=== PATIENT | female | born 1965 | race African-American/Black ===

== ENCOUNTER 2018-01-18 07:19 | Day surgery (SDC) | payer OTHER ==
--- OUTSIDE RECORDS SUMMARY | 2018-01-18 07:22 | XMS REPORT | Clinical Summary ---
:1965 Author Organization [facility] Address [address] [place] [address] Phone Care Team Providers Name Role Phone Unavailable Primary Care Provider Unavailable Allergies No Known Allergies Current Medications Prescription Sig. Disp. Refills Start Date End Date Status metFORMIN (GLUCOPHAGE) 500 Take 500 mg by Active MG tablet mouth daily with breakfast. doxazosin (CARDURA) 8 MG Take 8 mg by mouth Active tablet nightly. NIFEdipine (ADALAT CC) 90 Take 90 mg by Active MG 24 hr tablet mouth daily. ramipril (ALTACE) 10 MG Take 10 mg by Active capsule mouth daily. calcitriol (ROCALTROL) Take 0.25 mcg by Active 0.25 MCG capsule mouth every Sunday, Sunday, Sunday. cloNIDine HCl (CATAPRES) Take 0.1 mg by Active 0.1 MG tablet mouth daily. isosorbide mononitrate Take 60 mg by Active (IMDUR) 60 MG 24 hr tablet mouth daily. atenolol (TENORMIN) 50 MG Take 50 mg by Active tablet mouth 2 (two) times daily. pravastatin (PRAVACHOL) 20 Take 20 mg by Active MG tablet mouth daily. sevelamer (RENVELA) 800 mg Take 800 mg by Active tablet mouth 3 (three) times daily with meals. cholecalciferol, vitamin Take 5,000 Units Active D3, 5,000 unit Tab by mouth daily. ascorbic acid, vitamin C, Take 500 mg by Active (ASCORBIC ACID WITH SKYLAR mouth daily. HIPS) 500 MG tablet melatonin/pyridoxine Take 10 mg by Active (MELATONIN, WITH B6, ORAL) mouth every evening. ferrous gluconate (FERGON) Take 324 mg by Active 324 MG tablet mouth daily with breakfast. 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, unspecified whether retirement insulin use (HCC);Anemia of renal disease 01/15/2018 Office Visit Transplant Yoan Crapenter-transplant Jamaica Blankenship MD evaluation for chronic kidney disease (Primary Dx) 01/15/2018 Orders Only Transplant Jayden Pre-transplant Hepatology Jamaica Blankenship MD evaluation for chronic kidney disease;Hypertension , unspecified type;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, unspecified whether terminal carman insulin use (HCC);Anemia of renal disease 12/19/2017 Abstract Transplant Naya Rodriguez 12/14/2017 Abstract Transplant Naya Rodriguez Hepatology after 01/17/2017 Social History Tobacco Use Types Packs/Day Years Used Date Never Smoker Alcohol Use Drinks/Week oz/Week Comments No Sex Assigned at Date Recorded Not on file Last Filed Vital Signs Vital Sign Reading Time Taken Blood Pressure - - Pulse - - Temperature - - Respiratory Rate - - Oxygen Saturation - - Inhaled Oxygen Concentration - - Weight 83.2 kg (183 lb 8 oz) 01/15/2018 1:28 PM CDT Height 154.9 cm (5' 1") 01/15/2018 1:28 PM CDT Body Mass Index 34.67 01/15/2018 1:28 PM CDT Plan of Treatment Date Type Specialty Care Team Description 03/01/2018 Orders Only Lab 03/01/2018 Appointment Radiology 03/01/2018 Appointment Cardiology Jamaica Carpenter MD [address] [place] [address] 03/01/2018 Appointment Cardiology 03/12/2018 Office Visit Transplant 03/12/2018 Evaluation Transplant 03/12/2018 Evaluation Transplant Health Maintenance Due Date Last Done Comments INFLUENZA VACCINE 12/24/2017 Results TRANSFUSION SERVICE REPORT - SCAN (01/16/2018 6:06 PM)CBC with platelet count + automated diff (01/15/2018 2:01 PM) Component Value Ref Range WBC 8.6 3.5 - 10.5 K/L RBC 3.20 (L) 3.93 - 5.22 M/L Hemoglobin 9.9 (L) 11.2 - 15.7 GM/DL Hematocrit 32.3 (L) 34.1 - 44.9 % MCV 100.9 (H) 79.4 - 94.8 fL MCH 30.9 25.6 - 32.2 pg MCHC 30.7 (L) 32.2 - 35.5 GM/DL RDW 12.6 11.7 - 14.4 % Platelets 403 150 - 450 K/CU MM MPV 9.8 9.4 - 12.3 fL nRBC 0 0 - 0 /100 WBC % Neutros 62 % % Lymphs 31 % % Monos 5 % % Eos 1 % % Baso 0 % # Neutros 5.31 1.56 - 6.13 K/L # Lymphs 2.66 1.18 - 3.74 K/L # Monos 0.45 (H) 0.24 - 0.36 K/L # Eos 0.12 0.04 - 0.36 K/L # Baso 0.03 0.01 - 0.08 K/L Immature Granulocytes-Relative 0 0 - 1 % Specimen Performing Laboratory Blood [facility] [address] [address] CBC w/PLT Count & Auto Differential (01/15/2018 2:01 PM) Specimen Performing Laboratory Blood Narrative The following orders were created for panel order CBC w/PLT Count & Auto Differential. Procedure Abnormality Status --------- ------ CBC with platelet count ...[[id number]]AbnormalFinal result Please view results for these tests on the individual orders. XR chest 2 views (01/15/2018 12:36 PM) Specimen Performing Laboratory GE RIS Narrative FINAL REPORT PA and Lateral views of the chest dated 01/15/2018 Clinical information: pre transplant evaluation Comment:Heart is normal in size. Pulmonary vasculature is unremarkable. Lungs are clear. No pulmonary infiltrate or pleural effusion is present. Impression:No active cardiopulmonary disease. Signed: Daiana Anaya MD Report Verified Date/Time:01/15/2018 12:48:30 Reading Location: [address] Radiology Reading Room Procedure Note Interface, External Ris In - 01/15/2018 12:50 PM CDT FINAL REPORT PA and Lateral views of the chest dated 01/15/2018 Clinical information: pre transplant evaluation Comment: Heart is normal in size. Pulmonary vasculature is unremarkable. Lungs are clear. No pulmonary infiltrate or pleural effusion is present. Impression: No active cardiopulmonary disease. Signed: Daiana Anaya MD Report Verified Date/Time: 01/15/2018 12:48:30 Reading Location: [address] Radiology Reading Room Urinalysis, Routine (01/15/2018 7:46 AM) Component Value Ref Range Color, UA Yellow Clarity, UA Hazy Specific [place], UA 1.012 1.001 - 1.035 pH, UA 5.5 5.0 - 8.0 Protein, UA 100 mg/dL (A) Negative Glucose, UA Negative Negative Ketones, UA Negative Negative Bilirubin, UA Negative Negative Blood, UA Negative Negative Nitrite, UA Negative Negative Leukocytes, UA Trace (A) Negative Urobilinogen, UA 0.2 0.2 - 1.0 mg/dL RBC, UA <1 /HPF WBC, UA 4 /HPF Bacteria, UA Occasional Squam Epithel, UA 11 /HPF Yeast Rare Specimen Source Specimen Performing Laboratory Urine [address] [address] Urine Culture (01/15/2018 7:46 AM) Component Value Ref Range Result 40-49,000 col/mL skin johnny Specimen Performing Laboratory Urine [address] [address] T Spot TB (01/15/2018 7:44 AM) Component Value Ref Range T-Spot TB Negative Neg Ctrl Spot Count 0 Panel A Spot 1 Panel B Spot [address] 0 Scan Result Specimen Performing Laboratory Blood [facility] [address] [facility], [address] [place] [address] PT/aPTT (01/15/2018 7:44 AM) Component Value Ref Range Protime 14.4 11.7 - 14.7 seconds INR 1.1 <=5.9 PTT 29.8 22.5 - 36.0 seconds Specimen Performing Laboratory Blood [address] [address] Narrative RECOMMENDED COUMADIN/WARFARIN INR THERAPY RANGES STANDARD DOSE: 2.0 - 3.0 Includes: PROPHYLAXIS for venous thrombosis, systemic embolization; TREATMENT for venous thrombosis and/or pulmonary embolus. HIGH RISK: Target INR is 2.5-3.5 for patients with mechanical heart valves. HIV-1 Antigen with HIV-1/2 Antibody (01/15/2018 7:44 AM) Component Value Ref Range HIV-1 Antigen with HIV 1&2 Antibody Nonreactive Nonreactive Specimen Performing Laboratory Blood [address] [address] Hepatitis C Antibody (01/15/2018 7:44 AM) Component Value Ref Range Hepatitis C Ab Nonreactive Nonreactive Specimen Performing Laboratory Blood [address] [address] Cytomegalovirus antibody, IgM (01/15/2018 7:44 AM) Component Value Ref Range CMV IGM Positive (A) Negative, Equivocal Specimen Performing Laboratory Blood [address] [address] Narrative CMV IgM Result Interpretation: </=0.8 Al Negative 0.9-1.0 Al Equivocal >/=1.1 Al Positive Hepatitis B core antibody, IgM (01/15/2018 7:44 AM) Component Value Ref Range Hep B C IgM Nonreactive Nonreactive Specimen Performing Laboratory Blood [address] [address] EBV-VCA antibody, IgM (01/15/2018 7:44 AM) Component Value Ref Range ASHELY JENNINGS VIRAL CAPSID ANTIGEN IGM Negative Negative, Equivocal Specimen Performing Laboratory Blood [address] [address] Narrative Ashely Jennings Viral Capsid Antigen IgM Result Interpretation: </=0.8 Al Negative 0.9-1.0 Al Equivocal >/=1.1 Al Positive EBV-VCA antibody, IgG (01/15/2018 7:44 AM) Component Value Ref Range ASHELY JENNINGS VIRAL CAPSID ANTIGEN IGG Positive (A) Negative, Equivocal Specimen Performing Laboratory [address] [address] Narrative Ashely Jennings Viral Capsid Antigen IgG Result Interpretation: </=0.8 Al Negative 0.9-1.0 Al Equivocal >/=1.1 Al Positive RPR (01/15/2018 7:44 AM) Component Value Ref Range RPR Nonreactive Nonreactive Specimen Performing Laboratory [address] [address] Hepatitis B surface antibody (01/15/2018 7:44 AM) Component Value Ref Range Hep B S Ab 69.3 (H) <8.0 mIU/mL Specimen Performing Laboratory Blood [address] [address] Hepatitis B surface antigen (01/15/2018 7:44 AM) Component Value Ref Range hepatitis B Surface Ag Nonreactive Nonreactive Specimen Performing Laboratory [address] [address] Cytomegalovirus antibody, IgG (01/15/2018 7:44 AM) Component Value Ref Range CYTOMEGALOVIRUS, IGG Positive (A) Negative, Equivocal Specimen Performing Laboratory [address] [address] Narrative CMV IgG Result Interpretation: </=0.8 Al Negative 0.9-1.0 Al Equivocal >/=1.1 AlPositive Direct AHG (SARAI)/Direct Veronika (01/15/2018 7:44 AM) Component Value Ref Range Direct AHG-IGG NEGATIVE Direct AHG-C3B, C3D NEGATVIE Specimen Performing Laboratory [address] [address] Varicella Zoster Antibody, IgG (01/15/2018 7:44 AM) Component Value Ref Range Varicella IgG >8.0 Specimen Performing Laboratory [address] [address] Narrative VARICELLA ZOSTER RESULT INTERPRETATIONS: <=0.8 AlNonreactive:Presumed non-immune to VZV 0.9-1.0 AlEquivocal >=1.1 AlReactive:Presumed immune to VZV Uric Acid (01/15/2018 7:44 AM) Component Value Ref Range Uric Acid 5.5 2.6 - 7.2 mg/dL Specimen Performing Laboratory [address] [address] PTH, Intact (01/15/2018 7:44 AM) Component Value Ref Range PTH 308.0 (H) 8.5 - 72.5 pg/mL Specimen Performing Laboratory [address] [address] Lactate Dehydrogenase (LDH) (01/15/2018 7:44 AM) Component Value Ref Range LDH 244 (H) 125 - 220 U/L Specimen Performing Laboratory [address] [address] Hemoglobin A1c (01/15/2018 7:44 AM) Component Value Ref Range Hemoglobin A1C 5.6 4.3 - 6.1 % Specimen Performing Laboratory [address] [address] Gamma Glutamyl Transferase (GGT) (01/15/2018 7:44 AM) Component Value Ref Range GGT 17 9 - 64 U/L Specimen Performing Laboratory [address] [address] Comprehensive metabolic panel (01/15/2018 7:44 AM) Component Value Ref Range Protein, Total 5.9 (L) 6.0 - 8.3 gm/dL Albumin 2.6 (L) 3.5 - 5.0 g/dL Alkaline Phosphatase 65 40 - 150 U/L Total Bilirubin 0.3 0.2 - 1.2 mg/dL Sodium 137 136 - 145 meq/L Potassium 3.6 3.5 - 5.1 meq/L Chloride 97 (L) 98 - 107 meq/L CO2 25 22 - 29 meq/L BUN 25 (H) 7 - 21 mg/dL Creatinine 10.09 (H) 0.57 - 1.25 mg/dL Glucose 152 (H) 70 - 105 mg/dL Calcium 8.4 8.4 - 10.2 mg/dL AST 9 5 - 34 U/L ALT 7 6 - 55 U/L EGFR 5Comment: ESTIMATED GFR IS NOT ACCURATE mL/min/1.73 sq m CREATININE CLEARANCE IN PREDICTING GLOMERULAR FILTRATION RATE. ESTIMATED GFR IS NOT APPLICABLE FOR DIALYSIS PATIENTS. Specimen [place] [address] Blood typing, automated (01/15/2018 7:28 AM) Component Value Ref Range ABO/RH AUTOMATED (CARLY) O POSITIVE Specimen Performing Laboratory Blood [address] [address] after 01/17/2017
[2018-01-18] MEDS ORDERED: NA CHLORIDE 0.9% 500 ML ONE (07:38)
[2018-01-18] MEDS ORDERED: PROPOFOL 200 MG/20 ML VIAL IV ONE (08:08)
[2018-01-18] MEDS ORDERED: LIDOCAINE 1% MPF 5 ML VIAL ONE (08:08)
[2018-01-18] MEDS ORDERED: ONDANSETRON HCL 40 MG/20 ML VIAL ONE (08:36)
--- NOTE | 2018-01-18 08:54 | ENDO RPT ---
[address], [address] COLONOSCOPY PROCEDURE REPORT EXAM DATE: 01/18/2018 PATIENT NAME: Maki Tabares MR #: [id number] BIRTHDATE: 1965 ATTENDING: Riki Decker DR STATUS: outpatient ARTIST'S MANAGER: Sandor Webster and Chrissie Mckeon RN INDICATIONS: The patient is a 52 yr old Female here for a colonoscopy due to colon cancer screening PROCEDURE PERFORMED: Screening Colonoscopy and Colonoscopy MEDICATIONS: Per Anesthesia. ESTIMATED BLOOD LOSS: None CONSENT: The patient understands the risks and benefits of the procedure and understands that these risks include, but are not limited to: sedation, allergic reaction, infection, perforation and/or bleeding. Alternative means of evaluation and treatment include, among others: physical exam, x-rays, and/or surgical intervention. The patient elects to proceed with this endoscopic procedure. DESCRIPTION OF PROCEDURE: During intra-op preparation period all mechanical medical equipment was checked for proper function. Hand hygiene and appropriate measures for infection prevention was taken. Procedure, possible complications, alternatives including, but not limited to possibility of bleeding, perforation, tear, infection, sepsis, need for surgery, need for blood transfusion, were explained to the patient. After the risks, benefits and alternatives of the procedure were thoroughly explained, Informed consent was verified, confirmed and timeout was successfully executed by the treatment team. The patient was placed in the left lateral position. A digital rectal exam was performed and revealed no abnormalities of the rectum. After appropriate level of anesthesia, the scope was passed. The EC-[id number] ([id number]) endoscope was introduced through the anus and advanced to the cecum, which was identified by both the appendix and ileocecal valve. The quality of the prep was good. The instrument was then slowly withdrawn as the colon was fully examined. Scope withdrawal time was 8 minutes. COLON FINDINGS: A normal appearing cecum, ileocecal valve, and appendiceal orifice were identified. the ascending, transverse, descending, sigmoid colon, and rectum appeared unremarkable. Retroflexed views revealed no abnormalities. The scope was then completely withdrawn from the patient and the procedure terminated. ADVERSE EVENTS: There were no complications. IMPRESSIONS: A normal appearing cecum, ileocecal valve, and appendiceal orifice were identified. the ascending, transverse, descending, sigmoid colon, and rectum appeared unremarkable RECOMMENDATIONS: 1. fiber rich diet 2. yearly hemoccult starting in 4 years RECALL: Return in 10 year(s) for Colonoscopy. Earlier if on immunosuppression Riki Decker DR eSigned: Riki Decker DR 01/18/2018 8:47 AM cc: CPT CODES: ICD9 CODES: PATIENT NAME: Maki Tabares MR#: [id number]
[2018-01-18 09:19] VITALS: TEMP 98.5
[2018-01-18 09:20] VITALS: BP 144/69; O2SAT 100
== END 2018-01-18 09:25 | disposition home health service (06) ==
LOC: OR 07:19
PROVIDERS: ATTEND Surgery
PROC: 0DJD8ZZ Inspection of Lower Intestinal Tract, Via Natural or Artificial Opening Endoscopic (ICD-10-PCS; principal; 2018-01-18 08:30)
DX: Z12.11 Encounter for screening for malignant neoplasm of colon (principal); E11.9 Type 2 diabetes mellitus without complications; E78.5 Hyperlipidemia, unspecified; I10 Essential (primary) hypertension; Z91.013 Allergy to seafood
CPT/HCPCS: 45378; 82962; J2405; J2704

== ENCOUNTER 2018-08-18 13:41 | Emergency (ER) | payer OTHER ==
[2018-08-18 14:25] LABS: Absolute Monocytes 0.4 K/uL (0.1-1.3); Absolute Neutrophil 3.2 K/uL (1.8-8.0); Basophils % 0.7 % (0-1.3); Eosinophils % 3.3 % (0-4.4); Hematocrit 37.8 % (36.0-45.0); Lymphocytes % 34.5 % (15.3-44.8); MPV 9.2 fL (7.6-11.3); Monocytes % 7.2 % (3.3-12.3); RBC Red Blood Cell Count 3.94 M/uL (3.86-4.86)
--- NOTE | 2018-08-18 14:27 | RAD REPORT ---
EXAM DESCRIPTION: CT - Ct Stroke Brain Wo Cont - 08/18/2018 2:16 pm CLINICAL HISTORY: Slurred speech, weakness CLINICAL HISTORY: March 2017 TECHNIQUE: Axial 5 millimeter thick images of the head were obtained without IV contrast. All CT scans are performed using dose optimization technique as appropriate and may include automated exposure control or mA/KV adjustment according to patient size. FINDINGS: No intracranial hemorrhage, mass, or cerebral edema. No acute infarction identifiable. No cortical edema or sulcal effacement. There are some patchy areas diminished attenuation in the cerebr al white matter. This is most likely minimal chronic ischemic change but could also mask nonhemorrhag ic acute CVA. [place] matter-white matter differentiation is preserved. No globe or orbital content abnormality. Visualized portions of the mastoid air cells, paranasal sinuses, and orbits are unremarkable. Findings telephoned to the referring physician 1425 hours IMPRESSION: No intracranial hemorrhage or mass. No acute cortical based infarction. Patient does have some patchy chronic ischemic change evident. This could mask nonhemorrhagic CVA.
[2018-08-18 14:31] LABS: Protime INR 0.89
[2018-08-18 14:48] LABS: Potassium 4.5 mmol/L (3.5-5.1)
--- NOTE | 2018-08-18 14:48 | RAD REPORT ---
EXAM DESCRIPTION: RAD - Chest Single View - 08/18/2018 2:40 pm CLINICAL HISTORY: Stroke protocol chest film COMPARISON: March 2017 TECHNIQUE: AP portable chest image was obtained 1431 hours . FINDINGS: Lung volumes are low. No focal lung parenchymal process seen. Heart and vasculature are no rmal. No measurable pleural effusion and no pneumothorax. No acute bony abnormality seen. No acute ao rtic findings suspected. IMPRESSION: No acute cardiopulmonary process. No suspicious interval change.
--- NOTE | 2018-08-18 14:54 | ER ---
Nurse's Notes [facility] Name: Maki Tabares Age: 53 yrs Sex: Female : 1965 Arrival Date: 08/18/2018 Time: 13:46 Bed 5 Private MD: Diagnosis: Aphasia Presentation: 08/18 13:50 Presenting complaint: Patient states: Yesterday around 1430 my family said that my la1 speech was slurred and I had some facial droop. Transition of care: patient was not received from another setting of care. An acute neurological deficit is present. The patient has been moved to a treatment area. Pre-hospital glucose is not applicable to this patient. Onset of symptoms was August 17, 2018 at 14:30. Risk Assessment: Do you want to hurt yourself or someone else? Patient reports no desire to harm self or others. Initial Sepsis Screen: Does the patient meet any 2 criteria? No. Patient's initial sepsis screen is negative. Does the patient have a suspected source of infection? No. Patient's initial sepsis screen is negative. Care prior to arrival: None. 13:50 Method Of Arrival: Wheelchair la1 13:50 Acuity: TAVIA 2 la1 Triage Assessment: 13:55 The onset of the patients symptoms was August 17, 2018 at 14:30. aa5 Stroke Activation: Symptom onset > 6 hours Physician: Stroke Attending; Name: ; Notified At: ; Arrived At: Physician: Chief Stroke Resident; Name: ; Notified At: ; Arrived At: Physician: Stroke Resident; Name: ; Notified At: ; Arrived At: Physician: ED Attending; Name: ; Notified At: ; Arrived At: Physician: ED Resident; Name: ; Notified At: ; Arrived At: Historical: - Allergies: 13:52 SHELLFISH; la1 - PMHx: 13:52 Diabetes - NIDDM; Hyperlipidemia; Hypertension; Dialysis; peritoneal; la1 - Immunization history:: Adult Immunizations up to date. - Social history:: Smoking status: unknown. - Ebola Screening: : No symptoms or risks identified at this time. Screenin:00 Abuse screen: Denies threats or abuse. Nutritional screening: No deficits noted. aa5 Tuberculosis screening: No symptoms or risk factors identified. Fall Risk None identified. Assessment: 13:55 T-PA (Activase) Screening: Contraindications: Patient reports onset of signs and aa5 symptoms of stroke greater than 6 hours ago: Yes. 13:55 VAN Scoring: Arm Drift: Patients demonstrates NO arm weakness. Patient is VAN Negative. aa5 13:55 General: Appears comfortable, Behavior is calm, cooperative. Pain: Denies pain. Neuro: aa5 Level of Consciousness is awake, alert, obeys commands, Oriented to person, place, time, situation, Card Table Attendant are weak bilaterally Moves all extremities. Speech is normal, Facial symmetry appears normal, Pupils are PERRLA, Reports generalized weakness, pt states "I just feel sluggish" . Cardiovascular: Heart tones S1 S2 present Rhythm is regular. Respiratory: Airway is patent Respiratory effort is even, unlabored, Respiratory pattern is regular, symmetrical, Breath sounds are clear bilaterally. GI: Abdomen is round Bowel sounds present X 4 quads. Abd is soft X 4 quads. : No signs and/or symptoms were reported regarding the genitourinary system. EENT: No signs and/or symptoms were reported regarding the EENT system. Derm: Skin is dry, Skin is normal, Skin temperature is warm. Musculoskeletal: Range of motion: intact in all extremities. 14:05 Patient has been NPO before screening. The patient is alert, and able to follow aa5 commands. The patient does not exhibit slurred or garbled speech. The patient is not exhibiting difficulty speaking. The patient does not exhibit difficulty understanding words. The patient is able to swallow own secretions with no drooling or need for suction. Patient tolerated one teaspoon of water. No drooling, immediate coughing, gurgling, or clearing of the throat was noted. The patient tolerated 90mL of water. No drooling, immediate coughing, gurgling, or clearing of the throat was noted. The patient passed the bedside swallow screening. Oral medications may be given as ordered. Contact Physician for further diet orders. Provider notified of bedside swallow screening results: Ron Garcia MD. 15:00 Neuro: Level of Consciousness is awake, alert, obeys commands, Oriented to person, aa5 place, time, situation, Card Table Attendant are weak bilaterally Moves all extremities. Speech is normal, Facial symmetry appears normal, Pupils are PERRLA. Cardiovascular: Rhythm is sinus rhythm. Respiratory: Airway is patent Respiratory effort is even, unlabored, Respiratory pattern is regular, symmetrical. Derm: Skin is dry, Skin is normal, Skin temperature is warm. 15:00 Reassessment: Patient and/or family updated on plan of care and expected duration. Pain aa5 level reassessed. Awaiting for transfer, pt notified of wait time. . 16:00 Reassessment: Patient and/or family updated on plan of care and expected duration. Pain aa5 level reassessed. Patient denies pain at this time. Sitting up in bed, using cell phone. Respirations even and unlabored, skin is normal/warm/dry. . 16:22 Reassessment: Report given to [facility]. Awaiting EMS for transfer, pt notified of aa5 wait time . Vital Signs: 13:52 BP 128 / 83; Pulse 91; Resp 16; Temp 98.6; Pulse Ox 98% on R/A; Weight 80.29 kg; Height la1 5 ft. 1 in. (154.94 cm); 15:45 BP 137 / 77; Pulse 58; Resp 18 S; Pulse Ox 98% on R/A; Pain 0/10; aa5 16:30 BP 124 / 52; Pulse 60; Resp 16 S; Temp 98.0(TE); Pulse Ox 98% on R/A; Pain 0/10; aa5 13:52 Body Mass Index 33.44 (80.29 kg, 154.94 cm) la1 NIH Stroke Scale Scores: 13:55 NIHSS Score: 0 aa5 14:54 NIHSS Score: 1 kdr 15:00 NIHSS Score: 0 aa5 ED Course: 13:46 Patient arrived in ED. ss4 13:50 Matthieu Gonzalez, RN is Primary Nurse. 13:51 Triage completed. la1 13:52 Arm band placed on left wrist. la1 13:55 Patient has correct armband on for positive identification. Placed in gown. Bed in low aa5 position. Call light in reach. Side rails up X2. surveillance system monitor on. Pulse ox on. NIBP on. 13:57 Sruthi Eden, RN is Primary Nurse. aa5 14:00 Initial lab(s) drawn, by id, sent to lab. 14:00 Inserted saline lock: 20 gauge in right antecubital area, using aseptic technique. aa5 ,using aseptic technique. IV inserted by Matthieu Gonzalez RN. 14:05 Ron Garcia MD is Attending Physician. kdr 14:14 CT completed. Patient tolerated procedure well. Patient moved to CT via stretcher. sw Patient moved back from CT. 14:17 CT Stroke Brain w/o Contrast In Process Unspecified. EDMS 14:42 Stroke CXR 1 View In Process Unspecified. EDMS 14:48 initiated a transfer with Mae from the [facility]. eb 14:[address] De Leon the neurologist division operations specialist for [facility] with Dr. Garcia for eb patient transfer consultation. 15:[address] May with Dr. Garcia for patient transfer consultation. eb 15:43 administrative approval given by Mae Alston RN from the [facility]/ Dr. May has accepted the patient in transfer to [facility] Rm 2209/ report to be called to [phone]. 15:51 No provider procedures requiring assistance completed. aa5 16:55 Patient transferred, IV remains in place. aa5 Administered Medications: 15:25 Drug: Aspirin Chewable Tablet 324 mg Route: PO; aa5 16:00 Follow up: Response: No adverse reaction aa5 15:38 Not Given (Physician Discretion): Benadryl 25 mg IVP once aa5 15:38 Not Given (Physician Discretion): SOLU-Medrol 125 mg IVP once aa5 15:38 Not Given (Physician Discretion): Pepcid 20 mg IVP once aa5 Point of Care Testing: Blood Glucose: 14:00 Blood Glucose: 119 mg/dL; aa5 Ranges: Outcome: 14:54 ER care complete, transfer ordered by . kdr 16:55 Transferred by ground EMS Transfer form completed. X-rays sent w/ patient. Note: aa5 Report given to Nathalia rocha [facility] 16:55 Condition: stable 16:55 Instructed on the need for transfer, Demonstrated understanding of instructions. 16:59 Patient left the ED. la1 NIH Stroke Scale - NIH Stroke Score Date: 08/18/2018 Time: 13:55 Total Score = 0 1a. Level of Consciousness (LOC) - 0(Alert) 1b. Level of Consciousness (LOC) (Year \\T\\ Age) - 0(Both) 1c. LOC Commands (Open \\T\\ Closes Eyes/Community Representative) - 0(Both) 2. Best Gaze (Lateral Gaze Paresis) - 0(Normal) 3. Visual Field Loss - 0(No visual loss) 4. Facial Palsy - 0(Normal) 5a. Left Arm: Motor (10-second hold) - 0(No drift) 5b. Right Arm: Motor (10-second hold) - 0(No drift) 6a. Left Leg: Motor (5-second hold - always test supine) - 0(No drift) 6b. Right Leg: Motor (5-second hold - always test supine) - 0(No drift) 7. Limb Ataxia (finger/nose \\T\\ heel/garcia - test with eyes open) - 0(Absent) 8. Sensory Loss (pinprick arms/legs/face) - 0(Normal) 9. Best Language: Aphasia (description/naming/reading) - 0(No aphasia) 10. Dysarthria (speech clarity - read or repeat words) - 0(Normal) 11. Extinction and Inattention (visual/tactile/auditory/spatial/personal) - 0(No abnormality) Initials: aa5 NIH Stroke Scale - NIH Stroke Score Date: 08/18/2018 Time: 14:54 Total Score = 1 1a. Level of Consciousness (LOC) - 0(Alert) 1b. Level of Consciousness (LOC) (Year \\T\\ Age) - 0(Both) 1c. LOC Commands (Open \\T\\ Closes Eyes/Community Representative) - 0(Both) 2. Best Gaze (Lateral Gaze Paresis) - 0(Normal) 3. Visual Field Loss - 0(No visual loss) 4. Facial Palsy - 0(Normal) 5a. Left Arm: Motor (10-second hold) - 0(No drift) 5b. Right Arm: Motor (10-second hold) - 0(No drift) 6a. Left Leg: Motor (5-second hold - always test supine) - 0(No drift) 6b. Right Leg: Motor (5-second hold - always test supine) - 0(No drift) 7. Limb Ataxia (finger/nose \\T\\ heel/garcia - test with eyes open) - 0(Absent) 8. Sensory Loss (pinprick arms/legs/face) - 0(Normal) 9. Best Language: Aphasia (description/naming/reading) - 1(Mild to moderate aphasia) 10. Dysarthria (speech clarity - read or repeat words) - 0(Normal) 11. Extinction and Inattention (visual/tactile/auditory/spatial/personal) - 0(No abnormality) Initials: [facility] NIH Stroke Scale - NIH Stroke Score Date: 08/18/2018 Time: 15:00 Total Score = 0 1a. Level of Consciousness (LOC) - 0(Alert) 1b. Level of Consciousness (LOC) (Year \\T\\ Age) - 0(Both) 1c. LOC Commands (Open \\T\\ Closes Eyes/Community Representative) - 0(Both) 2. Best Gaze (Lateral Gaze Paresis) - 0(Normal) 3. Visual Field Loss - 0(No visual loss) 4. Facial Palsy - 0(Normal) 5a. Left Arm: Motor (10-second hold) - 0(No drift) 5b. Right Arm: Motor (10-second hold) - 0(No drift) 6a. Left Leg: Motor (5-second hold - always test supine) - 0(No drift) 6b. Right Leg: Motor (5-second hold - always test supine) - 0(No drift) 7. Limb Ataxia (finger/nose \\T\\ heel/garcia - test with eyes open) - 0(Absent) 8. Sensory Loss (pinprick arms/legs/face) - 0(Normal) 9. Best Language: Aphasia (description/naming/reading) - 0(No aphasia) 10. Dysarthria (speech clarity - read or repeat words) - 0(Normal) 11. Extinction and Inattention (visual/tactile/auditory/spatial/personal) - 0(No abnormality) Initials: aa5 Signatures: Dispatcher [employer] [facility] Ron Garcia MD MD [facility] Sruthi Eden, RN RN aa5 Driss Fitzpatrick RN RN Linda Vaz Henry, RN RN Tisha Hernandez Stephanie ss4
--- NOTE | 2018-08-18 14:55 | EDPHYS ---
Physician Documentation [facility] Name: Maki Tabares Age: 53 yrs Sex: Female : 1965 Arrival Date: 08/18/2018 Time: 13:46 Bed 5 Private MD: ED Physician Ron Garcia HPI: 08/18 14:54 This 53 yrs old Black Female presents to ER via Wheelchair with complaints of General kdr Weakness, Slurred Speech. 14:54 The patient presents to the emergency department with a speech or higher order brain kdr function problem, aphasia, that is mild. Onset: The symptoms/episode began/occurred gradually, yesterday, At about 2:30 yesterday. Context: occurred at home, occurred while the patient was doing normal activity. Associated signs and symptoms: The patient has no apparent associated signs or symptoms. Severity of symptoms: At their worst the symptoms were mild in the emergency department the symptoms are unchanged. Patient's baseline: Neuro: alert and fully oriented, Motor: no deficits, Ambulation: walks without assistance, Speech: normal. Current symptoms: Slurred speech. The patient has not experienced similar symptoms in the past. The patient has not recently seen a physician. Feels like her tongue is in the way - does not take KYREE inhibiter . Historical: - Allergies: 13:52 SHELLFISH; la1 - PMHx: 13:52 Diabetes - NIDDM; Hyperlipidemia; Hypertension; Dialysis; peritoneal; la1 - Immunization history:: Adult Immunizations up to date. - Social history:: Smoking status: unknown. - Ebola Screening: : No symptoms or risks identified at this time. ROS: 14:54 Constitutional: Negative for fever, chills, and weight loss, Eyes: Negative for injury, kdr pain, redness, and discharge, ENT: Negative for injury, pain, and discharge, Neck: Negative for injury, pain, and swelling, Cardiovascular: Negative for chest pain, palpitations, and edema, Respiratory: Negative for shortness of breath, cough, wheezing, and pleuritic chest pain, Abdomen/GI: Negative for abdominal pain, nausea, vomiting, diarrhea, and constipation, Back: Negative for injury and pain, : Negative for injury, bleeding, discharge, and swelling, MS/Extremity: Negative for injury and deformity, Skin: Negative for injury, rash, and discoloration, Psych: Negative for depression, anxiety, suicide ideation, homicidal ideation, and hallucinations, Allergy/Immunology: Negative for hives, rash, and allergies, Endocrine: Negative for neck swelling, polydipsia, polyuria, polyphagia, and marked weight changes, Hematologic/Lymphatic: Negative for swollen nodes, abnormal bleeding, and unusual bruising. 14:54 Neuro: Positive for speech changes, weakness, Negative for altered mental status, dizziness, gait disturbance, headache, hearing loss, loss of consciousness, numbness, seizure activity, syncope, near syncope, tingling, tinnitus, tremor, visual changes. Exam: 14:54 Constitutional: This is a well developed, well nourished patient who is awake, alert, kdr and in no acute distress. Head/Face: Normocephalic, atraumatic. Eyes: Pupils equal round and reactive to light, extra-ocular motions intact. Lids and lashes normal. Conjunctiva and sclera are non-icteric and not injected. Cornea within normal limits. Periorbital areas with no swelling, redness, or edema. Neck: Trachea midline, no thyromegaly or masses palpated, and no cervical lymphadenopathy. Supple, full range of motion without nuchal rigidity, or vertebral point tenderness. No Meningismus. Chest/axilla: Normal chest wall appearance and motion. Nontender with no deformity. No lesions are appreciated. Cardiovascular: Regular rate and rhythm with a normal S1 and S2. No gallops, murmurs, or rubs. Normal PMI, no JVD. No pulse deficits. Respiratory: Lungs have equal breath sounds bilaterally, clear to auscultation and percussion. No rales, rhonchi or wheezes noted. No increased work of breathing, no retractions or nasal flaring. Abdomen/GI: Soft, non-tender, with normal bowel sounds. No distension or tympany. No guarding or rebound. No evidence of tenderness throughout. Back: No spinal tenderness. No costovertebral tenderness. Full range of motion. Skin: Warm, dry with normal turgor. Normal color with no rashes, no lesions, and no evidence of cellulitis. MS/ Extremity: Pulses equal, no cyanosis. Neurovascular intact. Full, normal range of motion. Neuro: Awake and alert, GCS 15, oriented to person, place, time, and situation. Cranial nerves II-XII grossly intact. Motor strength 5/5 in all extremities. Sensory grossly intact. Cerebellar exam normal. Normal gait. Psych: Awake, alert, with orientation to person, place and time. Behavior, mood, and affect are within normal limits. Vital Signs: 13:52 BP 128 / 83; Pulse 91; Resp 16; Temp 98.6; Pulse Ox 98% on R/A; Weight 80.29 kg; Height la1 5 ft. 1 in. (154.94 cm); 15:45 BP 137 / 77; Pulse 58; Resp 18 S; Pulse Ox 98% on R/A; Pain 0/10; aa5 16:30 BP 124 / 52; Pulse 60; Resp 16 S; Temp 98.0(TE); Pulse Ox 98% on R/A; Pain 0/10; aa5 13:52 Body Mass Index 33.44 (80.29 kg, 154.94 cm) la1 NIH Stroke Scale Scores: 13:55 NIHSS Score: 0 aa5 14:54 NIHSS Score: 1 kdr 15:00 NIHSS Score: 0 aa5 MDM: 14:54 Patient medically screened. kdr 15:01 Data reviewed: vital signs, nurses notes, lab test result(s), radiologic studies. kdr Counseling: I had a detailed discussion with the patient and/or guardian regarding: the historical points, exam findings, and any diagnostic results supporting the discharge/admit diagnosis, lab results, radiology results, the need to transfer to another facility. 08/18 14:01 Order name: Basic Metabolic Panel; Complete Time: 14:55 08/18 14:01 Order name: CBC with Diff; Complete Time: 14:46 08/18 14:01 Order name: Protime (+inr); Complete Time: 14:46 08/18 14:01 Order name: Ptt, Activated; Complete Time: 14:46 08/18 14:01 Order name: CT Stroke Brain w/o Contrast; Complete Time: 14:46 08/18 14:46 Order name: Glucose, Ancillary Testing; Complete Time: 14:49 EDMS 08/18 14:01 Order name: Stroke CXR 1 View; Complete Time: 14:55 08/18 14:01 Order name: EKG; Complete Time: 14:02 08/18 14:01 Order name: Accucheck; Complete Time: 14:01 08/18 14:01 Order name: Cardiac monitoring; Complete Time: 14:08/18 14:01 Order name: EKG - Nurse/Tech; Complete Time: 14:08/18 14:01 Order name: IV Saline Lock; Complete Time: 14:08/18 14:01 Order name: Labs collected and sent; Complete Time: 14:08/18 14:01 Order name: NPO; Complete Time: 14:08/18 14:01 Order name: O2 Per Protocol; Complete Time: 14:08/18 14:01 Order name: O2 Sat Monitoring; Complete Time: 14:02 08/18 14:01 Order name: Stroke Swallow Screen; Complete Time: 14:02 aa Administered Medications: 15:25 Drug: Aspirin Chewable Tablet 324 mg Route: PO; aa5 16:00 Follow up: Response: No adverse reaction aa5 15:38 Not Given (Physician Discretion): Benadryl 25 mg IVP once aa5 15:38 Not Given (Physician Discretion): SOLU-Medrol 125 mg IVP once aa5 15:38 Not Given (Physician Discretion): Pepcid 20 mg IVP once aa5 Point of Care Testing: Blood Glucose: 14:00 Blood Glucose: 119 mg/dL; aa5 Ranges: Critical Glucose Levels:Adult <50 mg/dl or >400 mg/dl <40 mg/dl or >180 mg/dl Disposition: 08/18/18 14:54 Transfer ordered to [facility]. Diagnosis is Aphasia. - Reason for transfer: Higher level of care. - Accepting physician is Bershed. - Condition is Fair. - Problem is new. - Symptoms are unchanged. NIH Stroke Scale - NIH Stroke Score Date: 08/18/2018 Time: 13:55 Total Score = 0 1a. Level of Consciousness (LOC) - 0(Alert) 1b. Level of Consciousness (LOC) (Year \T\ Age) - 0(Both) 1c. LOC Commands (Open \T\ Closes Eyes/Commercial Production Editor) - 0(Both) 2. Best Gaze (Lateral Gaze Paresis) - 0(Normal) 3. Visual Field Loss - 0(No visual loss) 4. Facial Palsy - 0(Normal) 5a. Left Arm: Motor (10-second hold) - 0(No drift) 5b. Right Arm: Motor (10-second hold) - 0(No drift) 6a. Left Leg: Motor (5-second hold - always test supine) - 0(No drift) 6b. Right Leg: Motor (5-second hold - always test supine) - 0(No drift) 7. Limb Ataxia (finger/nose \T\ heel/garcia - test with eyes open) - 0(Absent) 8. Sensory Loss (pinprick arms/legs/face) - 0(Normal) 9. Best Language: Aphasia (description/naming/reading) - 0(No aphasia) 10. Dysarthria (speech clarity - read or repeat words) - 0(Normal) 11. Extinction and Inattention (visual/tactile/auditory/spatial/personal) - 0(No abnormality) Initials: aa5 NIH Stroke Scale - NIH Stroke Score Date: 08/18/2018 Time: 14:54 Total Score = 1 1a. Level of Consciousness (LOC) - 0(Alert) 1b. Level of Consciousness (LOC) (Year \T\ Age) - 0(Both) 1c. LOC Commands (Open \T\ Closes Eyes/Commercial Production Editor) - 0(Both) 2. Best Gaze (Lateral Gaze Paresis) - 0(Normal) 3. Visual Field Loss - 0(No visual loss) 4. Facial Palsy - 0(Normal) 5a. Left Arm: Motor (10-second hold) - 0(No drift) 5b. Right Arm: Motor (10-second hold) - 0(No drift) 6a. Left Leg: Motor (5-second hold - always test supine) - 0(No drift) 6b. Right Leg: Motor (5-second hold - always test supine) - 0(No drift) 7. Limb Ataxia (finger/nose \T\ heel/garcia - test with eyes open) - 0(Absent) 8. Sensory Loss (pinprick arms/legs/face) - 0(Normal) 9. Best Language: Aphasia (description/naming/reading) - 1(Mild to moderate aphasia) 10. Dysarthria (speech clarity - read or repeat words) - 0(Normal) 11. Extinction and Inattention (visual/tactile/auditory/spatial/personal) - 0(No abnormality) Initials: kdr NIH Stroke Scale - NIH Stroke Score Date: 08/18/2018 Time: 15:00 Total Score = 0 1a. Level of Consciousness (LOC) - 0(Alert) 1b. Level of Consciousness (LOC) (Year \T\ Age) - 0(Both) 1c. LOC Commands (Open \T\ Closes Eyes/Commercial Production Editor) - 0(Both) 2. Best Gaze (Lateral Gaze Paresis) - 0(Normal) 3. Visual Field Loss - 0(No visual loss) 4. Facial Palsy - 0(Normal) 5a. Left Arm: Motor (10-second hold) - 0(No drift) 5b. Right Arm: Motor (10-second hold) - 0(No drift) 6a. Left Leg: Motor (5-second hold - always test supine) - 0(No drift) 6b. Right Leg: Motor (5-second hold - always test supine) - 0(No drift) 7. Limb Ataxia (finger/nose \T\ heel/garcia - test with eyes open) - 0(Absent) 8. Sensory Loss (pinprick arms/legs/face) - 0(Normal) 9. Best Language: Aphasia (description/naming/reading) - 0(No aphasia) 10. Dysarthria (speech clarity - read or repeat words) - 0(Normal) 11. Extinction and Inattention (visual/tactile/auditory/spatial/personal) - 0(No abnormality) Initials: aa5 Signatures: Dispatcher [employer] [facility] Ron Garcia MD MD kdr Sruthi Eden RN RN aa5 Driss Fitzpatrick RN RN la1 Corrections: (The following items were deleted from the chart) 14:53 14:48 Head Angio+[id number] ordered. [facility] 16:59 14:54 08/18/2018 14:54 Transfer ordered to [facility]. la1 Diagnosis is Aphasia. Reason for transfer: Higher level of care. Accepting physician is Bershed. Condition is Fair. Problem is new. Symptoms are unchanged. kdr
[2018-08-18] MEDS ORDERED: ASPIRIN 81 MG CHEWABLE TABLET ONE (15:42)
[2018-08-18 17:53] VITALS: TEMP 98.6; O2SAT 98
[2018-08-18 17:55] VITALS: BP 137/77
--- NOTE | 2018-08-19 07:55 | EKG ---
Test Date: 2018-08-18 Test Time: 14:00:41 Senior [employer] Automation Engineer: NOHEMI MEASUREMENT RESULTS: Intervals: Rate: 62 WY: 170 QRSD: 96 QT: 442 QTc: 448 [place]: P: 38 WY: 170 QRS: 2 T: 17 INTERPRETIVE STATEMENTS: Normal sinus rhythm Anterior infarct, age undetermined Abnormal ECG Compared to ECG 04/08/2017 10:46:20 Myocardial infarct finding now present Prolonged QT interval no longer present Electronically Signed On 08-19-18 07:53:45 CDT by Ja Hudson
== END 2018-08-18 16:59 | disposition short-term general hospital (02) ==
LOC: ER 13:41
DX: R47.01 Aphasia (principal); E11.9 Type 2 diabetes mellitus without complications; E78.5 Hyperlipidemia, unspecified; I10 Essential (primary) hypertension; Z91.013 Allergy to seafood
CPT/HCPCS: 36415; 70450; 71045; 80048; 82962; 85025; 85610; 85730; 93005; 99285

== ENCOUNTER 2019-03-24 13:07 | Emergency (ER) | payer OTHER ==
--- OUTSIDE RECORDS SUMMARY | 2019-03-24 13:09 | XMS REPORT ---
:1965 Author Organization e[employer]Works Care Team Providers Name Role Phone Jose Beckham Provider Role Unavailable Allergies, Adverse Reactions, Alerts Substance Reaction Event Type shellfish Info Not Available Drug Allergy Problems Problem Type Condition Code Onset Dates Condition Status Problem Left-sided weakness R53.1 Active Problem Dependence on renal dialysis Z99.2 Active Problem History of CVA with residual deficit I69.30 Active Problem Depression with anxiety F41.8 Active Assessment Left-sided weakness R53.1 Active Problem Mixed hyperlipidemia E78.2 Active Assessment Morbid (severe) obesity due to E66.01 Active excess calories Assessment Body mass index (BMI) 35.0-35.9, Z68.35 Active adult Problem 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 Problem Morbid (severe) obesity due to E66.01 Active excess calories Problem Body mass index (BMI) 35.0-35.9, Z68.35 Active adult Problem End stage renal disease N18.6 Active Problem Type 2 diabetes mellitus with E11.22 Active diabetic chronic kidney disease Assessment Depression with anxiety F41.8 Active Assessment Mixed hyperlipidemia E78.2 Active Assessment History of CVA with residual deficit I69.30 Active Assessment Dependence on renal dialysis Z99.2 Active Assessment 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 Assessment Type 2 diabetes mellitus with E11.22 Active diabetic chronic kidney disease Assessment HTN, goal below 130/80 I10 Active Assessment End stage renal disease N18.6 Active Problem HTN, goal below 130/80 I10 Active Medications Medication Code Code Instructions Start End Status Dosage System Date Date Vitamin C [facility] 00389636071 500 MG Orally Active as directed Vitamin B [facility] 53448936143 - Orally Active as directed Complex Procardia ND 74846099234 10 MG Orally Active 1 capsule every 8 hrs as needed Atenolol ND 37483131419 50 MG Orally Active 1 tablet Once a day PRN HR >100 Metformin HCl ND 03462481655 500 MG Orally Active 1 tablet Once a day with a meal Calcitriol ND 93090014444 0.25 MCG Orally Active 1 capsule Once a day Pravastatin [facility] 48875773401 20 MG Orally Active 1 tablet Sodium Once a day Sevelamer [facility] 17262588824 0.8 GM Orally Active 1 packet Carbonate Three times a mixed with day 30 ml of water with meals Clonidine HCl [facility] 30934349220 0.3 MG Orally Inactive 1 tablet Twice a day Ferrous [facility] 31416407017 27 MG Orally Active 1 tablet Sulfate Once a day Ramipril [facility] 35470902687 10 MG Orally Active 1 capsule Once a day Aspir-Low [facility] 08862457405 81 MG Orally Active 1 tablet Once a day Doxazosin [facility] 30543590797 8 MG Orally Active 1 tablet Mesylate Once a day Clopidogrel [facility] 37660254081 75 MG Orally Active 1 tablet Bisulfate Once a day Melatonin [facility] 34162141505 5 MG Orally Active 1 capsule Once a day at bedtime as needed with food Fluoxetine HCl [facility] 49946103473 60 MG Orally Active 1 tablet Once a day Vitamin D-3 [facility] 49413138837 5000 UNIT Active as directed Orally Results No Known Results Summary Purpose eClinicalWorks Submission
--- NOTE | 2019-03-24 14:27 | RAD REPORT ---
EXAM DESCRIPTION: US - Extremity Venous Uni Ltd - 03/24/2019 2:17 pm CLINICAL HISTORY: Left leg pain and swelling COMPARISON: None. TECHNIQUE: Real-time sonographic evaluation of the left lower extremity deep venous system was perfo rmed. FINDINGS: Normal compression is seen in the left common femoral vein. The left superficial femoral v ein and left popliteal vein shows hypoechoic thrombus filling the vessel lumen. Little or no vessel c ompression is identifiable. Posterior tibial veins at the ankle show no thrombus. No mass or abnormal fluid collection in the soft tissues. IMPRESSION: Acute left leg deep venous thrombosis involving the left femoral and popliteal veins. Posterior tibial veins at the ankle and the left common femoral vein at the groin clear of thrombus.
[2019-03-24 14:45] LABS: Absolute Lymphocytes (CBC) 1.1 K/uL (0.7-4.9); Basophils % 0.5 % (0-1.3); Hematocrit 39.5 % (36.0-45.0); Lymphocytes % 10.2 % (15.3-44.8); MPV 8.7 fL (7.6-11.3); RBC Red Blood Cell Count 4.23 M/uL (3.86-4.86)
--- NOTE | 2019-03-24 14:46 | EDPHYS ---
Physician Documentation [facility] Name: Maki Tabares Age: 53 yrs Sex: Female : 1965 Arrival Date: 03/24/2019 Time: 13:12 Bed 8 Private MD: ED Physician Jesús Olson HPI: 03/24 13:58 This 53 yrs old Black Female presents to ER via Ambulatory with complaints of Leg ps1 Swelling. 13:58 Onset over the last week. Noticed swelling in the left lower extremity associated with ps1 pain. No hx of DVT before in the past. On peritoneal dialysis. No erythematous changes. Pain is mild to moderate. No ROGE. . 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 - Social history:: Smoking status: Patient/guardian denies using tobacco. - Ebola Screening: : Patient negative for fever greater than or equal to 101.5 degrees Fahrenheit, and additional compatible Ebola Virus Disease symptoms Patient denies exposure to infectious person Patient denies travel to an Ebola-affected area in the 21 days before illness onset No symptoms or risks identified at this time. ROS: 13:58 Constitutional: Negative for fever, chills, and weight loss, Eyes: Negative for injury, ps1 pain, redness, and discharge, Cardiovascular: Negative for chest pain, palpitations, and edema, Respiratory: Negative for shortness of breath, cough, wheezing, and pleuritic chest pain, Abdomen/GI: Negative for abdominal pain, nausea, vomiting, diarrhea, and constipation, Skin: Negative for injury, rash, and discoloration, Neuro: Negative for headache, weakness, numbness, tingling, and seizure. 13:58 MS/extremity: Positive for edema and tenderness of LLE. . Exam: 13:58 Constitutional: This is a well developed, well nourished patient who is awake, alert, ps1 and in no acute distress. Head/Face: Normocephalic, atraumatic. Eyes: Pupils equal round and reactive to light, extra-ocular motions intact. Lids and lashes normal. Conjunctiva and sclera are non-icteric and not injected. Chest/axilla: Normal chest wall appearance and motion. Nontender with no deformity. No lesions are appreciated. Cardiovascular: Regular rate and rhythm. No gallops, murmurs, or rubs. Normal PMI, no JVD. No pulse deficits. Respiratory: Lungs have equal breath sounds bilaterally, clear to auscultation and percussion. No rales, rhonchi or wheezes noted. No increased work of breathing, no retractions or nasal flaring. Skin: Warm, dry with normal turgor. Normal color with no rashes, no lesions, and no evidence of cellulitis. Neuro: Awake and alert, GCS 15, oriented to person, place, time, and situation. Cranial nerves II-XII grossly intact. Sensory grossly intact. 13:58 Musculoskeletal/extremity: Extremities: grossly normal except: noted in the left calf, medial aspect of left calf and left garcia: swelling, tenderness, There is no evidence of contusion, decreased ROM, erythema. Vital Signs: 13:22 BP 112 / 72; Pulse 87; Resp 19; Temp 97.7; Pulse Ox 98% on R/A; Pain 7/10; sg 15:21 BP 139 / 70; Pulse 85; Resp 16; Pulse Ox 98% on R/A; jl7 MDM: 14:12 Patient medically screened. ps1 03/24 13:50 Order name: CBC with Diff; Complete Time: 15:04 ps1 03/24 13:50 Order name: CMP ps1 03/24 13:50 Order name: Extremity Venous Uni Ltd US; Complete Time: 14:39 ps1 Administered Medications: 15:04 Drug: Eliquis 5 mg Route: PO; jl7 15:04 Follow up: Response: Medication administered at discharge. jl7 Disposition: 03/24/19 14:44 Discharged to Home. Impression: Deep vein thrombosis, left leg. - Condition is Stable. - Discharge Instructions: Deep Vein Thrombosis. - Prescriptions for Eliquis 5 mg Oral tablet - take 1 tablet by ORAL route 2 times per day 10mg po bid x 7 days then 5mg bid thereafter.; 74 tablet. - Medication Reconciliation Form, Thank You Letter, Antibiotic Education, Prescription Opioid Use form. - Follow up: Private Physician; When: 48 Hours; Reason: Further diagnostic work-up, Recheck today's complaints, Continuance of care, Re-evaluation by your physician. Follow up: Emergency Department; When: As needed; Reason: Trouble breathing, Worsening of condition. - Problem is new. - Symptoms are unchanged. Signatures: Dispatcher [employer] EDMckay Stapleton, RN RN sg Mike Holder RN RN jl7 Jesús Olson MD MD ps1 Corrections: (The following items were deleted from the chart) 15:22 14:44 03/24/2019 14:44 Discharged to Home. Impression: Deep vein thrombosis, left leg. jl7 Condition is Stable. Forms are Medication Reconciliation Form, Thank You Letter, Antibiotic Education, Prescription Opioid Use. Follow up: Private Physician; When: 48 Hours; Reason: Further diagnostic work-up, Recheck today's complaints, Continuance of care, Re-evaluation by your physician. Follow up: Emergency Department; When: As needed; Reason: Trouble breathing, Worsening of condition. Problem is new. Symptoms are unchanged. ps1
--- NOTE | 2019-03-24 14:46 | ER ---
Nurse's Notes [facility] Name: Maki Tabares Age: 53 yrs Sex: Female : 1965 Arrival Date: 03/24/2019 Time: 13:12 Bed 8 Private MD: Diagnosis: Deep vein thrombosis, left leg Presentation: 03/24 13:22 Presenting complaint: Patient states: left leg pain and swelling that began 1 day ago, sg reports having heat feeling in the left calf and left thigh, pt denies any SOB at this time. Transition of care: patient was not received from another setting of care. Onset of symptoms was March 24, 2019. Risk Assessment: Do you want to hurt yourself or someone else? Patient reports no desire to harm self or others. Initial Sepsis Screen: Does the patient meet any 2 criteria? No. Patient's initial sepsis screen is negative. Does the patient have a suspected source of infection? No. Patient's initial sepsis screen is negative. Care prior to arrival: None. 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 - Social history:: Smoking status: Patient/guardian denies using tobacco. - Ebola Screening: : Patient negative for fever greater than or equal to 101.5 degrees Fahrenheit, and additional compatible Ebola Virus Disease symptoms Patient denies exposure to infectious person Patient denies travel to an Ebola-affected area in the 21 days before illness onset No symptoms or risks identified at this time. Screenin:23 Abuse screen: Denies threats or abuse. Denies injuries from another. Nutritional jl7 screening: No deficits noted. Tuberculosis screening: No symptoms or risk factors identified. Fall Risk IV access (20 points). Total Bowen Fall Scale indicates No Risk (0-24 pts). Assessment: 14:23 General: Appears in no apparent distress. uncomfortable, Behavior is cooperative, flat. jl7 Pain: Complains of pain in left leg Pain currently is 7 out of 10 on a pain scale. Pain began 2-3 days ago. Is continuous. Neuro: Level of Consciousness is awake, alert, obeys commands, Oriented to person, place, time, situation. Cardiovascular: Patient's skin is warm and dry. Respiratory: Airway is patent Respiratory effort is even, unlabored, Respiratory pattern is regular, symmetrical. Derm: Skin is pink, warm \T\ dry. Musculoskeletal: Swelling present in left leg. 14:51 Reassessment: Pt will be discharged after pharmacy delivers medication. jl7 Vital Signs: 13:22 BP 112 / 72; Pulse 87; Resp 19; Temp 97.7; Pulse Ox 98% on R/A; Pain 7/10; sg 15:21 BP 139 / 70; Pulse 85; Resp 16; Pulse Ox 98% on R/A; jl7 ED Course: 13:12 Patient arrived in ED. mr 13:21 Arm band placed on. sg 13:35 Jesús Olson MD is Attending Physician. ps1 13:39 Triage completed. sg 13:46 Mike Holder RN is Primary Nurse. jl7 14:13 Extremity Venous Uni Ltd US In Process Unspecified. EDMS 14:23 Patient has correct armband on for positive identification. Placed in gown. Bed in low jl7 position. Call light in reach. Side rails up X 1. 14:23 Initial lab(s) drawn, by me, sent to lab. Inserted saline lock: 22 gauge in right jl7 antecubital area, using aseptic technique. Blood collected. 15:21 No provider procedures requiring assistance completed. IV discontinued, intact, jl7 bleeding controlled, No redness/swelling at site. Pressure dressing applied. Administered Medications: 15:04 Drug: Eliquis 5 mg Route: PO; jl7 15:04 Follow up: Response: Medication administered at discharge. jl7 Outcome: 14:44 Discharge ordered by . ps1 15:21 Discharged to home ambulatory. jl7 15:21 Condition: stable 15:21 Discharge instructions given to patient, family, Instructed on discharge instructions, follow up and referral plans. medication usage, Demonstrated understanding of instructions, follow-up care, medications, Prescriptions given X 1. 15:22 Patient left the ED. jl7 Signatures: Dispatcher [employer] EDMS Mckay Drake RN RN Marty Maria Teresa mr Mike Holder, GABRIELA RN jl7 Olson, Jesús, MD MD ps1
[2019-03-24] MEDS ORDERED: APIXABAN 5 MG TABLET PO ONE (15:00)
[2019-03-24 15:14] LABS: Albumin 2.7 g/dL (3.4-5.0); Bilirubin Total 0.4 mg/dL (0.2-1.0); Protein, Total 6.8 g/dL (6.4-8.2)
[2019-03-24 15:18] LABS: Potassium 2.9 mmol/L (3.5-5.1)
[2019-03-24 15:32] VITALS: TEMP 97.7; O2SAT 98
[2019-03-24 15:33] VITALS: BP 139/70
== END 2019-03-24 15:22 | disposition home or self-care (01) ==
LOC: ER 13:07
DX: I82.402 Acute embolism and thrombosis of unspecified deep veins of left lower extremity (principal); I10 Essential (primary) hypertension; Z99.2 Dependence on renal dialysis; Z91.013 Allergy to seafood
CPT/HCPCS: 36415; 80053; 85025; 93971; 99284

== ENCOUNTER 2019-11-10 11:39 | Emergency (ER) | payer OTHER ==
[2019-11-10] MEDS ORDERED: HYDROCODONE/APAP 5/325 MG TAB ONE (12:30)
--- NOTE | 2019-11-10 13:38 | RAD REPORT ---
EXAM DESCRIPTION: RAD - Shoulder Right 2 View - 11/10/2019 1:28 pm CLINICAL HISTORY: fall, right shoulder pain COMPARISON: No comparisons FINDINGS: Comminuted proximal right humerus fracture is seen with mild displacement of fracture frag ments. The bones are diffusely osteopenic.
--- NOTE | 2019-11-10 15:21 | EDPHYS ---
Physician Documentation [facility] Name: Maki Tabares Age: 54 yrs Sex: Female : 1965 Arrival Date: 11/10/2019 Time: 11:41 Bed 20 Private MD: Jose Beckham ED Physician Meño Serna HPI: 11/09 11:50 This 54 yrs old Black Female presents to ER via Wheelchair with complaints of Shoulder jmm Injury - dislocation. 11:50 The patient or guardian complains of an injury, pain. Onset: The symptoms/episode jmm began/occurred acutely, just prior to arrival. Modifying factors: the symptoms are alleviated by nothing. The symptoms are aggravated by movement. Associated signs and symptoms: Pertinent negatives: chest pain, shortness of breath. This is a 54 year old female with a history of DM, HLP, HTN that presents to the ED with complaints of right shoulder pain after tripping on a box. Patient states she fell on her right side. Denies other injury. Historical: - Allergies: 11:48 SHELLFISH; ca1 - PMHx: 11:48 Diabetes - NIDDM; Dialysis; peritoneal; Hyperlipidemia; Hypertension; ca1 - Immunization history:: Adult Immunizations up to date. - Social history:: Smoking status: Patient denies any tobacco usage or history of. ROS: 11:50 Constitutional: Negative for fever, chills, and weight loss, Cardiovascular: Negative jmm for chest pain, palpitations, and edema, Respiratory: Negative for shortness of breath, cough, wheezing, and pleuritic chest pain. 11:50 MS/extremity: Positive for pain. 11:50 All other systems are negative. Exam: 11:50 Constitutional: This is a well developed, well nourished patient who is awake, alert, jmm and in no acute distress. Head/Face: atraumatic. Eyes: EOMI, no conjunctival erythema appreciated ENT: Moist Mucus Membranes Neck: Trachea midline, Supple Chest/axilla: Normal chest wall appearance and motion. Cardiovascular: Regular rate and rhythm. No edema appreciated Respiratory: Normal respirations, no respiratory distress appreciated Abdomen/GI: Non distended, soft Back: Normal ROM Skin: General appearance color normal 11:50 Musculoskeletal/extremity: right proximal humerus ttp, full vmware architect strength, full radial pulse, compartments are soft, NVI. 11:50 Skin: Appearance: Color: normal in color. 11:50 Neuro: Orientation: is normal, Mentation: is normal, Memory: is normal. 11:50 Psych: Behavior/mood is pleasant, cooperative. Vital Signs: 11:46 BP 124 / 61; Pulse 65; Resp 15 S; Temp 98.7(O); Pulse Ox 100% on R/A; Weight 82.55 kg ca1 (R); Height 5 ft. 1 in. (154.94 cm) (R); 16:00 Pulse 62; Resp 17; Pulse Ox 100% ; jl7 11:46 Body Mass Index 34.39 (82.55 kg, 154.94 cm) ca1 Procedures: 15:17 Splinting: Splint applied to right arm using Orthoglass splint, applied by tech. nurse. [facility] Examined by me, post splint application: neurovascular intact, 2+ distal pulses palpable, brisk capillary refill noted, Patient tolerated. MDM: 11:53 Patient medically screened. [facility] 15:17 Data reviewed: vital signs, nurses notes. Counseling: I had a detailed discussion with margie the patient and/or guardian regarding: the historical points, exam findings, and any diagnostic results supporting the discharge/admit diagnosis, radiology results, the need for outpatient follow up, to return to the emergency department if symptoms worsen or persist or if there are any questions or concerns that arise at home. 11/09 11:47 Order name: Shoulder Right (2 View) XRAY; Complete Time: 14:06 [facility] 11/09 13:28 Order name: Splint: right coaptation splint; Complete Time: 16:14 [facility] Administered Medications: 12:21 Drug: [place] 5 mg-325 mg 1 tabs {Note: rass 0.} Route: PO; ca1 12:50 Follow up: Response: No adverse reaction; Pain is decreased [facility] er 16:14 Drug: Zofran (Ondansetron) 4 mg Route: PO; em 16:15 Drug: morphine 4 mg Route: IM; Site: left deltoid; em Disposition: 17:32 Co-signature as Attending Physician, Meño Serna MD. rn Disposition: 11/10/19 15:21 Discharged to Home. Impression: Humerus Fracture. - Condition is Stable. - Discharge Instructions: Humerus Fracture Treated With Immobilization. - Prescriptions for Tylenol- Codeine #3 300-30 mg Oral Tablet - take 1 tablet by ORAL route every 6 hours As needed; 20 tablet. - Medication Reconciliation Form, Thank You Letter, Antibiotic Education, Prescription Opioid Use form. - Follow up: Eric Rodriguez MD; When: 2 - 3 days; Reason: Recheck today's complaints, Continuance of care, Re-evaluation by your physician. Signatures: Dispatcher [employer] EDMS Parmjit Castillo PA PA jmm Munoz, Edgar, RN RN Meño Obregon MD MD rn Mike Holder RN RN jl7 Elida Burger RN RN ca1 Corrections: (The following items were deleted from the chart) 16:18 15:21 11/10/2019 15:21 Discharged to Home. Impression: Humerus Fracture. Condition is jl7 Stable. Forms are Medication Reconciliation Form, Thank You Letter, Antibiotic Education, Prescription Opioid Use. Follow up: Dr. Eric Rodriguez; When: 2 - 3 days; Reason: Recheck today's complaints, Continuance of care, Re-evaluation by your physician. margie
--- NOTE | 2019-11-10 15:21 | ER ---
Nurse's Notes [facility] Name: Maki Tabares Age: 54 yrs Sex: Female : 1965 Arrival Date: 11/10/2019 Time: 11:41 Bed 20 Private MD: Jose Beckham Diagnosis: Humerus Fracture Presentation: 11/09 11:46 Chief complaint: Patient states: Tripped and fell, landed on R shoulder. Pain and ca1 limited ROM R shoulder. Coronavirus screen: Client denies travel out of the [place] in the last 14 days. At this time, the client does not indicate any symptoms associated with coronavirus-19. Ebola Screen: Patient negative for fever greater than or equal to 101.5 degrees Fahrenheit, and additional compatible Ebola Virus Disease symptoms Patient denies exposure to infectious person. Patient denies travel to an Ebola-affected area in the 21 days before illness onset. No symptoms or risks identified at this time. Initial Sepsis Screen: Does the patient meet any 2 criteria? No. Patient's initial sepsis screen is negative. Does the patient have a suspected source of infection? No. Patient's initial sepsis screen is negative. Risk Assessment: Do you want to hurt yourself or someone else? Patient reports no desire to harm self or others. Onset of symptoms was November 10, 2019. 11:46 Method Of Arrival: Wheelchair ca1 11:46 Acuity: TAVIA 4 ca1 Triage Assessment: 11:48 General: Appears in no apparent distress. comfortable, Behavior is calm, cooperative, ca1 appropriate for age. Pain: Complains of pain in anterior aspect of right shoulder and right bicep. Historical: - Allergies: 11:48 SHELLFISH; ca1 - PMHx: 11:48 Diabetes - NIDDM; Dialysis; peritoneal; Hyperlipidemia; Hypertension; ca1 - Immunization history:: Adult Immunizations up to date. - Social history:: Smoking status: Patient denies any tobacco usage or history of. Screenin:09 Abuse screen: Denies threats or abuse. Denies injuries from another. Nutritional jl7 screening: No deficits noted. Tuberculosis screening: No symptoms or risk factors identified. Fall Risk Fall in past 12 months (25 points). Assessment: 14:30 Reassessment: Patient appears in no apparent distress at this time. No changes from jl7 previously documented assessment. Patient and/or family updated on plan of care and expected duration. Pain level reassessed. Patient is alert, oriented x 3, equal unlabored respirations, skin warm/dry/pink. 15:00 Reassessment: Awaiting extra hands to place splint on pt. jl7 16:09 Reassessment: Patient appears in no apparent distress at this time. No changes from jl7 previously documented assessment. Vital Signs: 11:46 BP 124 / 61; Pulse 65; Resp 15 S; Temp 98.7(O); Pulse Ox 100% on R/A; Weight 82.55 kg ca1 (R); Height 5 ft. 1 in. (154.94 cm) (R); 16:00 Pulse 62; Resp 17; Pulse Ox 100% ; jl7 11:46 Body Mass Index 34.39 (82.55 kg, 154.94 cm) ca1 ED Course: 11:41 Patient arrived in ED. as 11:42 Jose Beckham DO is Private Physician. as 11:47 Parmjit Castillo PA is PHCP. [facility] 11:47 Meño Serna MD is Attending Physician. jmm 11:48 Triage completed. ca1 11:48 Arm band placed on right wrist. ca1 13:28 Shoulder Right (2 View) XRAY In Process Unspecified. EDMS 14:18 Mike Holder RN is Primary Nurse. jl7 15:20 Eric Rodriguez MD is Referral Physician. jmm 16:09 Patient has correct armband on for positive identification. Bed in low position. Call jl7 light in reach. 16:09 No provider procedures requiring assistance completed. Patient did not have IV access jl during this emergency room visit. Orthoglass splint: Coaptation splint applied on right arm. Administered Medications: 12:21 Drug: [place] 5 mg-325 mg 1 tabs {Note: rass 0.} Route: PO; ca1 12:50 Follow up: Response: No adverse reaction; Pain is decreased jl7 16:14 Drug: Zofran (Ondansetron) 4 mg Route: PO; em 16:15 Drug: morphine 4 mg Route: IM; Site: left deltoid; em Outcome: 15:21 Discharge ordered by . jmm 16:17 Discharged to home via wheelchair, with family. jl7 16:17 Condition: stable 16:17 Discharge instructions given to patient, family, Instructed on discharge instructions, follow up and referral plans. medication usage, Demonstrated understanding of instructions, follow-up care, medications, splint care, Prescriptions given X 1. 16:18 Patient left the ED. jl7 Signatures: Dispatcher [employer] Parmjit Leger PA PA jmm Munoz, Edgar, RN RN Jonna Galvan Jahala, RN RN jl7 Elida Burger RN RN ca1
[2019-11-10] MEDS ORDERED: MORPHINE 4 MG/ML SYR ONE (16:22)
[2019-11-10] MEDS ORDERED: ONDANSETRON 4 MG (ODT) TAB ONE (16:23)
[2019-11-10 16:39] VITALS: BP 124/61; TEMP 98.7; O2SAT 100
== END 2019-11-10 16:18 | disposition home or self-care (01) ==
LOC: ER 11:39
PROC: 2W38X1Z Immobilization of Right Upper Extremity using Splint (ICD-10-PCS; principal; 2019-11-10)
DX: S42.201A Unspecified fracture of upper end of right humerus, initial encounter for closed fracture (principal); W01.0XXA Fall on same level from slipping, tripping and stumbling without subsequent striking against object, initial encounter; Y93.9 Activity, unspecified; Y92.9 Unspecified place or not applicable; I10 Essential (primary) hypertension; Z99.2 Dependence on renal dialysis; Z91.013 Allergy to seafood
CPT/HCPCS: 96372; 99284

== ENCOUNTER 2020-08-02 20:13 | Inpatient (IN) | payer OTHER ==
--- OUTSIDE RECORDS SUMMARY | 2020-08-02 20:18 | XMS REPORT | Continuity of Care Document ---
:1965 Author Organization [facility] t Address [address] [place] [address] [address]. [address] [place] [address] Care Team Providers Name Role Phone Irais Beckham [facility] Physician [phone] Denice MCKEON Attending Clinician Doctor Unassigned, Name Attending Clinician Unavailable Yoana MCKEON, Fazal Attending Clinician Teodoro Osullivan MD Attending Clinician Ronn OCHOA, Y Attending Clinician Unavailable Gama MCKEON Attending Clinician Jose Alejandro MCKEON, Enedelia Negrete Attending Clinician Carrie Lim Attending Clinician Unavailable Bebe OCHOA Attending Clinician Unavailable Silke OCHOA Attending Clinician Unavailable ANGELIA Attending Clinician Unavailable NIMO NOGUEIRA Attending Clinician Unavailable Krzysztof CRUM Attending Clinician Unavailable ALICIA Admitting Clinician Unavailable NIMO NOGUEIRA Admitting Clinician Unavailable Payers Payer Name Policy Type Policy Effective Date Expiration Date Sour ce Number MEDICAIDMEDICAIDx [id number] 2019 [place] [id number] 2019- 00:00:00 Methodi PresentMedicaid UHC MEDICAREUHC [id number] 2020 [place] MEDICARE 00:00:00 Islam [id number] 2019-PresentH [place] UNITED RESOURCES [id number] [address] [facility] [facility] y[facility]min - NETWK - MEDICARE 00:00:00 Medical Center MGD CAREOPTUM UNITED ONLY [facility] [id number]-PresentTrans plants MC Problems Condition Condition Condition Status Onset Resolution Last Treating Co mments Source Name Details Category Date Date Treatment Clinician Date Obesity Obesity Disease Active Last [facility]11 [facility] - 00:00: t & Plan: Medical 00 Current Center BMI is 34.9 which is acceptabl e for transplan t. We encourage d her to continue to increase physical activity as tolerated to aid with weight loss. Basal Basal Disease Active Last [facility] ganglia ganglia 8-11 Assessmargaret Toro - degenerati degenerati 00:00: t & Plan: Medical on on She Center requires the use of a cane due to difficult ies with balance. She is able to speak clearly in clinic today. She lives alone and remains functiona lly independe nt. Neurology notes suggest treatment of ESRD could keep her neurologi kurt changes from becoming more advanced, which we discussed in relation to transplan t during our visit today. DM DM Disease Active Last [facility] (diabetes (diabetes 8-11 Assessmen L ukdanette - mellitus) mellitus) 00:00: t & Plan: M edical 00 She will Center require strict blood glucose control . Acute Acute Disease Active [facility] encephalop encephalop 8-05 Brenda kes - athy athy 00:00: Medical 00 Center TIA TIA Disease Active [facility] (transient (transient 5-27 Brenda kes - ischemic ischemic 00:00: Medica l attack) attack) 00 Center Slurred Slurred Disease Active [facility] speech speech 5-26 [facility] - 00:00: Medical 00 Center Pre-transp Pre-transp Disease Active 2017-[address] lant lant 0-23 Assessmargaret Toro - evaluation evaluation 00:00: t & Plan: Medical for for She is an Center chronic chronic acceptabl kidney kidney e disease disease candidate for kidney transplan t pending further testing and formal review at [facility]. ESRD (end ESRD (end Disease Active 2017-[address] stage stage 0-23 Assessmen Lukes - renal renal 00:00: t & Plan: Medical disease) disease) 00 ESRD due Cent er on on to DM. dialysis dialysis She has been on dialysis since 2017. She does have a potential donor at this time. 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 11-20 He alth disorder, disorder, 00:00: recurrent recurrent 00 episode, episode, unspecifie unspecifie d d Localized Localized Disease Active 2009-03 [facility] ris osteoarthr osteoarthr 05-01 He alth osis not osis not 00:00: specified specified 00 whether whether primary or primary or secondary, secondary, pelvic pelvic region and region and thigh thigh Localized Localized Disease Active Lionel ris osteoarthr osteoarthr 11-01 He alth osis not osis not 00:00: specified specified 00 whether whether primary or primary or secondary, secondary, lower leg lower leg 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 09-14 Health 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 Routine Routine Disease Active Timmy gynecologi gynecologi 08-30 He alth kurt kurt 00:00: examinatio examinatio 00 n n Pseudotumo Pseudotumo Disease Active H arris r cerebri r cerebri 06-28 Heal th 00:00: 00 Hypertensi Hypertensi Disease Active H arris on on 06-28 Health 00:00: 00 Obesity, Obesity, Disease Active Harri s unspecifie unspecifie 06-28 He alth d d 00:00: 00 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Timmy hyperchole hyperchole 06-28 He alth sterolemia sterolemia 00:00: 00 Unspecifie Unspecifie Disease Active H arris d venous d venous 06-28 Health (periphera (periphera 00:00: l) l) 00 insufficie insufficie ncy ncy Type 2 Type 2 Disease Active Timmy diabetes diabetes 06-28 Health mellitus mellitus 00:00: 00 Screening Screening Disease Active Lionel ris 06-28 Health 00:00: 00 Allergic Allergic Disease Active Harri s rhinitis, rhinitis, 06-28 Heal th cause cause 00:00: unspecifie unspecifie 00 d d Lumbago Lumbago Disease Active [facility] 4-05 Health 00:00: 00 Pain in Pain in Disease Active [place] joint, joint, 06-28 Health lower leg lower leg 00:00: 00 Depression Depression Disease Active H arris 06-15 Health 00:00: 00 Allergies, Adverse Reactions, Alerts Allergy Allergy Status Severity Reaction(s) Onset Inactive Treating Comm ents Source Name Type Date Date Clinician shellfis Adverse Active Info Not [facility] Reaction Available [facility] Family History Family Member Diagnosis Comments Start Date Stop Date Source Natural father Diabetes [facility] Natural father Hypertension [facility] Natural father Stroke [facility] Natural mother Arthritis [facility] Natural mother Diabetes [facility] Natural mother Hypertension [facility] Natural sister Cancer [facility] Natural sister Hypertension [facility] Natural sister Clotting disorder [facility] Social History Social Habit Start Date Stop Date Quantity Comments Source Sex Assigned At [facility] Tobacco use and 2016-06-23 2016-06-23 Never used [facility] exposure 00:00:00 00:00:00 Alcohol intake 2016-06-23 2016-06-23 Current drinker of [facility] 00:00:00 00:00:00 alcohol (finding) Alcohol Comment 2011-07-19 2011-07-19 occassionally [facility] 00:00:00 00:00:00 Smoking Status Start Date Stop Date Source Never smoker [facility] Medications Ordered Filled Start Stop Current Ordering Indication Dosage Frequency Signature Comments Components Source Medication Medication Date Date Medication? Clinician (SIG) Name Name sevelamer 2019-0 Yes .8g Take 0.[address] carbonate 8-11 by mouth 3 Luke s - 0.8 gram 10:22: (three) Medica l PwPk 06 times Center daily with meals. doxazosin 2019-0 Yes 8mg QD Take [address] (CARDURA) 8 8-11 by mouth Luke s - MG tablet 10:19: nightly . Med ical 49 Center pravastatin 2020-0 Yes 20mg QD Take [address] (PRAVACHOL) 8-11 by mouth Luke s - 20 MG 10:19: daily. Medical tablet 49 [place] sevelamer 2020-0 Yes 800mg Take [address] (RENVELA) 8-11 mg by Lukes - 800 mg 10:19: mouth 3 Medical tablet 49 (three) Center times daily with meals. cholecalcif 2020-0 Yes 5000U QD Take 5,[address] herbert, 8-11 Units by Lukes - vitamin D3, 10:19: mouth Medic al 5,000 unit 49 daily. [place] Tab ascorbic 2020-0 Yes 500mg QD Take [address] acid, 8-11 mg by Lukes - vitamin C, 10:19: mouth Medica l (ASCORBIC 49 daily. Center ACID WITH SKYLAR HIPS) 500 MG tablet melatonin/p 2020-0 Yes 10mg QD Take [address] yridoxine 8-11 by mouth Lukes - (MELATONIN, 10:19: every Medic al WITH B6, 49 evening. Center ORAL) ferrous 2020-0 Yes 324mg Take 324 [facility] gluconate 8-11 mg by Lukes - (FERGON) 10:19: mouth Medical 324 MG 49 daily with Center tablet breakfast. FLUoxetine 2020-0 Yes 40mg QD Take [address] (PROZAC) 40 8-11 by mouth Luke s - MG capsule 10:19: daily. Medic al 49 [place] metFORMIN 2020-0 Yes 500mg QD Take [address] (GLUCOPHAGE 8-11 mg by Lukes - ) 500 MG 10:19: mouth Medical tablet 49 nightly . [place] NIFEdipine 2020-0 Yes 90mg QD Take [address] (ADALAT CC) 8-11 by mouth Luke s - 90 MG 24 hr 10:19: daily. Medi kurt tablet 49 Center atenolol 2020-0 Yes 100mg QD Take [address] (TENORMIN) 8-11 mg by Lukes - 100 MG 10:19: mouth Medical tablet 49 daily Pt Center takes when HR>100 . ramipril 2020-0 2020- No 10mg QD Take [address] (ALTACE) 10 8-11 08-11 by mouth Virgie es - MG capsule 10:19: 00:00 daily. Medi kurt 35 :00 Center hydrALAZINE 2019- No 100mg [id number] Take [address] (APRESOLINE 11-03 [id number] mg by Lukes - ) 100 MG 10:18: 00:00 3D mouth 3 Medic al tablet 44 :00 (three) Center times daily. calcitriol 2020- No .25ug Take 0.[address] (ROCALTROL) 11-03 mcg by Lukes - 0.25 MCG 10:17: 00:00 mouth Medical capsule 18 :00 every Center Sunday, Sunday, Sunday. aspirin 81 2020- No 81mg QD Take [address] MG EC 11-03 by mouth Lukes - tablet 10:15: 00:00 daily. Medical 13 :00 [place] ELIQUIS 5 2019-0 Yes 5mg Q.5D [address] MG tablet 7-30 (two) Lukes - 00:00: times Medical 00 daily. [place] spironolact Yes 25mg QD Take [address] one 7- by mouth Lukes - (ALDACTONE) 00:00: daily. Medi kurt 25 MG 00 Center tablet thiamine 2019- No 100mg QD Take 1 [facility] t 100 MG 11-02 tablet Lukes - tablet 00:00: 23:59 (100 mg Medical 00 :00 total) by Center mouth daily. epoetin 2019- No anemia in 6000U Inject [address] pb-epbx 11-01 chronic mLs (6,000 Lukes - (RETACRIT) 00:00: 00:00 kidney Units Med ical 3,000 00 :00 disease total) Center unit/mL subcutaneo Soln usly 3 injection (three) times a week at bedtime. cloNIDine 2019- No .3mg Q.5D Take 3 [facility] HCl 11-01 tablets Lukes - (CATAPRES) 00:00: 00:00 (0.3 mg Med ical 0.1 MG 00 :00 total) by Center tablet mouth 2 (two) times daily. clopidogrel 2019- No 75mg QD Take [address] [facility] (PLAVIX) 75 09-09 by mouth Virgie es - mg tablet 00:00: 00:00 daily. Medic al 00 :00 Center NIFEdipine Yes Essential 90mg QD Take 1 [facility] (PROCARDIA 4-06 hypertensio tablet by [facility] XL) 90 mg 00:00: n, benign mouth extended 00 daily. release tablet NIFEdipine Yes Essential 30mg QD Take 1 [facility] (PROCARDIA 4-06 hypertensio tablet by [employer] XL) 30 mg 00:00: n, benign mouth extended 00 daily Take release in tablet addition to 90 mg to make 120 mg daily. metFORMIN Yes Type 2 1000mg Take 2 Vizcaino rris (GLUCOPHAGE 06 diabetes tablets by [facility] ) 500 mg 00:00: mellitus mouth 2 tablet 00 with times diabetic daily nephropathy (with , meals) unspecified Increased termination clerk dose. insulin use status atenolol Yes Essential 100mg QD Take 2 H arris (TENORMIN) 3 hypertensio tablets by [facility] 50 mg 00:00: n mouth tablet 00 daily. furosemide Yes Essential 40mg Take 1 [facility] (LASIX) 40 06-23 hypertensio tablet by [facility] mg tablet 00:00: n mouth 00 every 8 hours If needed you can increase to 2 pills (80mg) every 8 hours. ergocalcife Yes Vitamin D 97810P Take 1 [facility] rol 06-23 deficiency capsule by [facility] (VITAMIN 00:00: mouth D2) 50,000 00 weekly. unit capsule hydrALAZINE Yes Essential 100mg Take 1 [facility] (APRESOLINE 06-23 hypertensio tablet by [facility] ) 100 mg 00:00: n mouth 3 tablet 00 times daily. aspirin Yes Essential 81mg QD Chew and H arris (ASPIRIN) 06-23 hypertensio swallow 1 Health 81 mg 00:00: n tablet by chewable 00 mouth tablet daily. pravastatin Yes Dyslipidemi 20mg Take 1 [facility] (PRAVACHOL) 06-23 a tablet by [facility] 20 mg 00:00: mouth at tablet 00 bedtime nightly Decreased dose. glimepiride Yes Type 2 DM 8mg QD Take 2 [facility] (AMARYL) 4 - with CKD tablets by Health mg tablet 00:00: stage 4 and mouth 00 hypertensio every n morning (before breakfast) . lisinopril Yes Essential 40mg QD Take 1 [facility] (ZESTRIL) 3-31 hypertensio tablet by [facility] 40 mg 00:00: n mouth tablet 00 daily. NIFEdipine Yes Essential 30mg QD Take 1 [facility] (PROCARDIA 3-31 hypertensio tablet by [facility] XL) 30 mg 00:00: n mouth extended 00 daily Take release in tablet addition to Nifedipine 90mg to make a total of 120 mg daily. cloNIDine Yes Essential 1{patch Apply 1 [facility] (CATAPRES-T 3-31 hypertensio } Patch to [facility] TS-3) 0.3 00:00: n skin as mg/24 hr 00 directed patch weekly Switch Clonidine 0.3 mg tablet to Catapres patch. minoxidil Yes Essential 1.25mg Take 0.5 [facility] (LONITEN) 1-27 hypertensio tablets by [facility] 2.5 mg 00:00: n mouth tablet 00 every 8 hours. furosemide Yes CKD 40mg Q.5D Take 1 Harri s (LASIX) 40 1-23 (chronic tablet by [facility] mg tablet 00:00: kidney mouth 2 00 disease), times stage 3 daily. (moderate) potassium Yes Essential 10meq QD Take 1 [facility] chloride 1-23 hypertensio tablet by [facility] (KLOR-CON 00:00: n, benign mouth M10) 10 mEq 00 daily Take extended only with release lasix. tablet cloNIDine 2015-03 Yes Essential .1mg Take 1 H arris HCl 0-28 hypertensio tablet by [facility] (CATAPRES) 00:00: n, benign mouth 3 0.1 mg 00 times tablet daily. cloNIDine Yes Essential .3mg Take 1 H arris HCl 9-19 hypertensio tablet by [facility] (CATAPRES) 00:00: n, benign mouth 3 0.3 mg 00 times tablet daily Increased dose. ergocalcife Yes Vitamin D 08687T Take 1 [facility] rol 3-31 deficiency capsule by [facility] (VITAMIN 00:00: mouth D2) 50,000 00 weekly. unit capsule NIFEdipine Yes Essential 90mg QD Take 1 [facility] (PROCARDIA 3-31 hypertensio tablet by [facility] XL) 90 mg 00:00: n, benign mouth extended 00 daily release Discontinu tablet e Amlodipine . cetirizine 2014-03 Yes Other 10mg QD Take 1 Yaritza is (ZYRTEC) 10 0-22 allergic tablet by Health mg tablet 00:00: rhinitis mouth 00 daily. Fluoxetine Fluoxetine Yes Eric [address] [address] HCl HCl [facility] Ferrous Ferrous Yes Eric [address] Sulfate Sulfate Rodriguez [facility] - [facility] Vitamin C Vitamin C Yes Eric as [facility] Rodriguez directed [facility] - [facility] Pravastatin Pravastatin Yes Eric [address] Sodium Sodium Rodriguez [facility] - [facility] Sevelamer Sevelamer Yes Eric [address] Carbonate Carbonate Rodriguez mixed with Lukes - 30 ml of Memoria water with l meals [facility] Vitamin B Vitamin B Yes Eric as [facility] Complex Complex Rodriguez directed [facility] Doxazosin Doxazosin Yes Eric [address] Mesylate Mesylate Rodriguez [facility] - [facility] Eliquis Eliquis Yes Eric TAKE [address] [facility] [facility] Rodriguez TABLET BY Lukes - MOUTH Memoria TWICE l DAILY FOR [facility] 90 DAYS ent Clinics NIFEdipine NIFEdipine Yes Eric TAKE [address] [facility] ER ER Rodriguez TABLET BY Lukes - MOUTH Memoria EVERY 12 l HOURS [facility] Metformin Metformin Yes Eric [address] HCl HCl Rodriguez with a Lukes - meal Memoria l [facility] Vitamin D-3 Vitamin D-3 Yes Eric as [facility] Rodriguez directed [facility] - [facility] Melatonin Melatonin Yes Eric [address] [facility] Rodriguez at bedtime Lukes - as needed Memoria with food [facility] ent [facility] Metformin Metformin Yes Eric [address] HCl HCl Rodriguez with a Lukes - meal Mem[facility] Atenolol Atenolol Yes Eric [address] [facility] [facility] Rodriguez [facility] Immunizations Ordered Immunization Filled Immunization Date Status Commen ts Source Name Name Influenza Vaccine 2016-01-21 Completed [facility] 00:00:00 Influenza Vaccine 2015-01-14 Completed [facility] 00:00:00 Pneumococcal 2015-01-14 Completed [facility] 13-valent conj 0.5 00:00:00 mL injection Influenza Vaccine 2014-02-09 Completed [facility] 00:00:00 Influenza Vaccine 2013-01-20 Completed [facility] 00:00:00 Influenza Vaccine 2010-12-16 Completed [facility] 00:00:00 Influenza Vaccine 2010-02-28 Completed [facility] 00:00:00 Vital Signs Vital Name Observation Time Observation Value Comments Source Systolic blood 2019-11-04 10:06:00 161 mm[Hg] [facility] Diastolic blood 2019-11-04 10:06:00 90 mm[Hg] [facility] Heart rate 2019-11-04 10:06:00 65 /min [facility] Body temperature 2019-11-04 10:06:00 36.06 Tika [facility] Respiratory rate 2019-11-04 10:06:00 16 /min [facility] Body height 2019-11-04 10:06:00 156 cm [facility] Body weight 2019-11-04 10:06:00 85.004 kg [facility] BMI 2019-11-04 10:06:00 34.93 kg/m2 [facility] Oxygen saturation in 2019-11-04 10:06:00 100 /min [facility] Arterial blood by Medical Ce nter Pulse oximetry Procedures Procedure Date / Time Performed Performing Clinician Sourc e NM BRAIN SPECT W I 123 2020-02-25 15:49:13 Saji Galdamez on Islam DATSCAN Plan of Care Planned Activity Planned Date Details Comments Source Future Scheduled 2021-08-[address] [facility] - Test 00:00:00 (procedure) [code = [facility] 58684588] Future Scheduled 2020-12-24 IMM Influenza Seasonal H arris Health Test 00:00:00 Dec to May (>/= 19 yrs) [code = IMM Influenza Seasonal Dec to May (>/= 19 yrs)] Future Scheduled 2020-11-[address] [facility] - Test 00:00:00 (Season Ended) [code = [facility] INFLUENZA VACCINE (Season Ended)] Future Scheduled 2020-11-[address] [facility]gie es - Test 00:00:00 malignant neoplasm of [facility] breast (procedure) [code = 029889078] Future Scheduled 2020-10-24 INFLUENZA VACCINE [place] [facility] Test 00:00:00 [code = INFLUENZA VACCINE] Future Scheduled 2020-06-23 Screening for [facility] 00:00:00 malignant neoplasm of cervix (procedure) [code = 762449003] Future Scheduled 2020-03-[address] [facility] - Test 00:00:00 (12+) [code = Medical Center DEPRESSION SCREENING (12+)] Future Scheduled 2019-11-[address] Brenda kes - Test 00:00:00 measurement [facility] Center (procedure) [code = 59932948] Future Scheduled 2019-03-[address] Virgie es - Test 00:00:00 malignant neoplasm of Medica l Center colon (procedure) [code = 790206046] Future Scheduled 2018-11-[address] [facility] - Test 00:00:00 WELLNESS (YEAR 2 or Medical Center FIRST YEAR if no IPPE) [code = MEDICARE ANNUAL WELLNESS (YEAR 2 or FIRST YEAR if no IPPE)] Future Scheduled 2017-07-08 Breast Cancer Scrn [facility] s Health Test 00:00:00 (Yearly) [code = Breast Cancer Scrn (Yearly)] Future Scheduled 2017-04-21 Screening for [facility] Test 00:00:00 malignant neoplasm of colon (procedure) [code = 713952386] Future Scheduled 2013 BRE[facility] CANCER [place] [facility] 00:[facility]:00 SCREENING [code = BREAST CANCER SCREENING] Future Scheduled 2013 COLONOSCOPY SCREENING [place] [facility] Test 00:00:00 [code = COLONOSCOPY SCREENING] Future Scheduled 2013 SHINGLES VACCINES (#1) [place] [facility] Test 00:00:00 [code = SHINGLES VACCINES (#1)] Future Scheduled 2013 SHINGLES VACCINES ([address] [facility] - Test 00:00:00 of 2) [code = SHINGLES Medic al Center VACCINES (1 of 2)] Future Scheduled 1993 Screening for [facility] 00:00:00 malignant neoplasm of cervix (procedure) [code = 381127999] Future Scheduled 1984 Screening for [facility] Test 00:00:00 malignant neoplasm of cervix (procedure) [code = 777914918] Future Scheduled [address] Virgie es - Test 00:00:00 malignant neoplasm of Medica l Center cervix (procedure) [code = 585071424] Future Scheduled 1982 DTAP/TDAP/TD VACCINES [facility] - Test 00:00:00 (1 - Tdap) [code = Medical C enter DTAP/TDAP/TD VACCINES (1 - Tdap)] Future Scheduled 1981 Hepatitis C screening [place] [facility] Test 00:00:00 (procedure) [code = 727552158] Future Scheduled 1979 COVID-19 VACCINE (1) [place] [facility] Test 00:00:00 [code = COVID-19 VACCINE (1)] Future Scheduled 1979 COVID-19 Vaccine (1) Lionel ris Health Test 00:00:00 [code = COVID-19 Vaccine (1)] Future Scheduled 1973 DIABETES: RETINAL EYE [place] [facility] Test 00:00:00 EXAM [code = DIABETES: RETINAL EYE EXAM] Future Scheduled 1973 DIABETIC FOOT EXAM [place] [facility] Test 00:00:00 [code = DIABETIC FOOT EXAM] Future Scheduled 1973 URINE MICROALBUMIN [place] [facility] Test 00:00:00 [code = URINE MICROALBUMIN] Future Scheduled 1973 DIABETIC EYE EXAM [facility] - Test 00:00:00 [code = DIABETIC EYE Medical Center EXAM] Future Scheduled [address] [facility] - Test 00:00:00 examination Medical Center (regime/therapy) [code = 214928012] Future Scheduled 1973 Urine screening for [facility] - Test 00:00:00 protein (procedure) Medical Center [code = 715882583] Future Scheduled [address] [facility] - Test 00:00:00 0-64 YRS (1 of 1 - Medical C enter PPSV23) [code = PNEUMOCOCCAL VACCINE 0-64 YRS (1 of 1 - PPSV23)] Encounters Start End Encounter Admission Attending Care Care Encounter Source Date/Time Date/Time Type Type Clinicians Facility Department ID 2020-02-25 2020-02-25 Outpatient [facility] [id number] [place] 00:00:00 00:00:00 SAJI [address] 2020-02-25 2020-02-25 Outpatient [facility] [id number] [place] 00:00:00 00:00:00 SAJI [address] 2020-01-30 2020-01-30 Orders Doctor TIANNA [id number] 00:00:00 00:00:00 Only Unassigned, TIMOTHY [id number] [place] [facility] [id number] 2020-01-29 2020-01-29 Telephone Yoana [facility] [id number] 00:00:00 00:00:00 [place] [id number] [place] [id number] [place] [id number] critical access hospital2 [facility] 2020-01-22 2020-01-22 Office BRISEIDA Osullivan [id number] 10:05:54 11:52:05 Visit Daiana Valerio AMBULATOR [id number] Y [id number] 2020-01-02 2020-01-02 Outpatient [facility] [id number] [facility] St 00:00:00 00:00:00 [facility] Outpati ent Clinics 2019-12-31 2019-12-31 Outpatient [facility] [id number] [facility] St 00:00:00 00:00:00 [facility] - [facility] l Outpati ent Clinics 2019-12-25 2019-12-25 Office BRISEIDA Osullivan [id number] 09:47:44 11:32:45 Visit Daiana Valerio AMBULATOR [id number] Y [id number] 2019-11-27 2019-11-27 Office BRISEIDA Osullivan [id number] 08:35:10 09:57:10 Visit Daiana Valerio AMBULATOR [id number] Y [id number] 600 2019-11-24 2019-11-24 [facility] [address] 09:17:00 09:17:00 [facility] Outpati ent Clinics 2019-11-13 2019-11-13 Office BRISEIDA Osullivan [id number] 220 15:52:21 16:41:09 Visit Daiana Valerio AMBULATOR [id number] Y [id number] 2019-11-12 2019-11-12 [facility] [id number] 09:30:00 09:30:00 t [facility] 2019-10-02 2019-10-02 [facility] [id number] 16:22:00 16:22:00 t Enochs [employer] [facility] 2019-10-02 2019-10-02 [facility] [id number] 10:15:00 10:15:00 t Enochs [employer] - Drive [facility] Medicine Outpati ent Clinics 2019-10-02 2019-10-02 [facility] [id number] 10:00:00 10:00:00 t Enochs [employer] - Drive [facility] Medicine Outpati ent Clinics 2019-07-01 2019-07-01 [facility] [id number] 11:45:00 11:45:00 t Enochs [employer] s - Drive [facility] Medicine Outpati ent Clinics 2019-04-10 2019-04-10 [facility] [id number] 11:54:00 11:54:00 t Enochs [employer] s - Drive [facility] Medicine Outpati ent Clinics 2019-03-31 2019-03-31 [facility] [id number] 11:20:00 11:20:00 t Enochs [employer] - Drive [facility] Medicine Outpati ent Clinics 2019-03-27 2019-03-27 [facility] [id number] 10:30:00 10:30:00 t Enochs [employer] - Drive [facility] Medicine Outpati ent Clinics 2019-03-12 2019-03-12 [facility] [id number] [facility] 09:[facility]00 [facility] Results Test Description Test Time Test Comments Results Result Sourc e Comments NM Brain Spect W 2020-02-25 Carlos Eduardo Housmiguel ángel on I 123 Datscan 19:03:20 Radiology Results Amando no Incoming - 02/25/2020 7:06 PM CST PROCEDURE : NM BRAIN SPECT W I 123 DATSCANINDICATION: 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 TECHNIQUE: The patient was pretreated with potassium iodide drops for thyroid protection and then injected with 4 mCi of I-123 DaTscan IV. Brain SPECT imaging was then performed. FINDINGS: There is markedly reduced tracer uptake in the caudate and putamen bilaterally. IMPRESSION: Abnormal DaTscan study. [facility]-[id number] BODY FLUID CULTURE + GRAM STAIN 2018-11-03 12:18:00 Test Item Value Reference Range Interpretation Comme nts CULTURE (BEAKER) (test code = 1095) No growth GRAM STAIN RESULT (BEAKER) (test code = 1123) <1+ White blood cells seen GRAM STAIN RESULT (BEAKER) (test code = 98014) No organisms seen BLOOD [id number] 08:01:00 Test Item Value Reference Range Interpretation Comments CULTURE (BEAKER) (test No growth in 5 days code = 1095) BLOOD [id number] 08:01:00 Test Item Value Reference Range Interpretation Comments CULTURE (BEAKER) (test No growth in 5 days code = 1095) POCT-GLUCOSE [id number] 14:58:00 Test Item Value Reference Range Interpretation Comments POC-GLUCOSE METER 101 mg/dL 70-110 TESTED AT [facility] 6720 (BEAKER) (test code = [place] 1538) [address] HEMOGLOBIN AND [id number] 12:19:00 Test Item Value Reference Range Interpretation Comments HEMOGLOBIN (BEAKER) (test code = 7.5 GM/DL 11.2-15.7 L 410) HEMATOCRIT (BEAKER) (test code = 23.1 % 34.1-44.9 L 411) POCT-GLUCOSE [id number] 08:37:00 Test Item Value Reference Range Interpretation Comments POC-GLUCOSE METER 168 mg/dL 70-110 H TESTED AT [place] [address] ([facility]) (test code = ANIL Brown [facility] 1538) [address] LACTIC ACID, [id number] 07:04:00 Test Item Value Reference Range Interpretation Comments LACTATE BLOOD VENOUS 1.9 mmol/L 0.5-2.2 Specime n slightly (2) ([facility]) (test hemolyzed code = 2872) POCT-GLUCOSE [id number] 21:25:00 Test Item Value Reference Range Interpretation Comments POC-GLUCOSE METER 102 mg/dL 70-110 TESTED AT [place] [address] ([facility]) (test [facility] = [facility] 1538) [address] POCT-GLUCOSE [id number] 18:50:00 Test Item Value Reference Range Interpretation Comments POC-GLUCOSE METER 91 mg/dL 70-110 TESTED AT [place] [address] ([facility]) (test code = [facility] Kevin [facility] [address] 1538) POCT-GLUCOSE [id number] 13:23:00 Test Item Value Reference Range Interpretation Comments POC-GLUCOSE METER 114 mg/dL 70-110 H TESTED AT [place] [address] ([facility]) (test code = [facility] Kevin [facility] 1538) [address] POCT-GLUCOSE [id number] 09:11:00 Test Item Value Reference Range Interpretation Comments POC-GLUCOSE METER 131 mg/dL 70-110 H TESTED AT [place] [address] ([facility]) (test code = [facility] Kevin [facility] 1538) [address] BASIC METABOLIC [id number] 06:45:00 Test Item Value Reference Range Interpretation Comments SODIUM (BEAKER) 133 meq/L 136-145 L (test code = 381) POTASSIUM (BEAKER) 3.4 meq/L 3.5-5.1 L (test code = 379) CHLORIDE (BEAKER) 95 meq/L 98-107 L (test code = 382) CO2 (BEAKER) (test 25 meq/L 22-29 code = 355) BLOOD UREA NITROGEN 49 mg/dL 7-21 H (BEAKER) (test code = 354) CREATININE (BEAKER) 12.73 mg/dL 0.57-1.25 H (test code = 358) GLUCOSE RANDOM 134 mg/dL 70-105 H (BEAKER) (test code = 652) CALCIUM (BEAKER) 8.3 mg/dL 8.4-10.2 L (test code = 697) EGFR (BEAKER) (test 4 mL/min/1.73 ESTIMAT ED GFR IS code = 1092) sq m NOT ACCURATE CREATININE CLEARANCE IN PREDICTING GLOMERULAR FILTRATION RATE . ESTIMATED GFR I S NOT APPLICABLE FOR DIALYSIS PATIEN TS. [id number] 06:40:00 Test Item Value Reference Range Interpretation Comments PHOSPHORUS (BEAKER) (test code = 6.5 mg/dL 2.3-4.7 H 604) [id number] 06:40:00 Test Item Value Reference Range Interpretation Comments MAGNESIUM (BEAKER) (test code = 1.9 mg/dL 1.6-2.6 627) LACTIC ACID, [id number] 06:12:00 Test Item Value Reference Range Interpretation Comments LACTATE BLOOD VENOUS (2) (BEAKER) 2.3 mmol/L 0.5-2.2 H (test code = 2872) CBC W/PLT COUNT & AUTO [id number] 06:05:00 Test Item Value Reference Range Interpretation Comments WHITE BLOOD CELL COUNT (BEAKER) 8.2 K/ L 3.5-10.5 (test code = 775) RED BLOOD CELL COUNT (BEAKER) 2.33 M/ L 3.93-5.22 L (test code = 761) HEMOGLOBIN (BEAKER) (test code = 7.3 GM/DL 11.2-15.7 L 410) HEMATOCRIT (BEAKER) (test code = 23.3 % 34.1-44.9 L 411) MEAN CORPUSCULAR VOLUME (BEAKER) 100.0 fL 79.4-94.8 H (test code = 753) MEAN CORPUSCULAR HEMOGLOBIN 31.3 pg 25.6-32.2 (BEAKER) (test code = 751) MEAN CORPUSCULAR HEMOGLOBIN CONC 31.3 GM/DL 32.2-35.5 L (BEAKER) (test code = 752) RED CELL DISTRIBUTION WIDTH 14.2 % 11.7-14.4 (BEAKER) (test code = 412) PLATELET COUNT (BEAKER) (test 277 K/CU MM 150-450 code = 756) MEAN PLATELET VOLUME (BEAKER) 9.9 fL 9.4-12.3 (test code = 754) NUCLEATED RED BLOOD CELLS 0 /100 WBC 0-0 (BEAKER) (test code = 413) NEUTROPHILS RELATIVE PERCENT 67 % (BEAKER) (test code = 429) LYMPHOCYTES RELATIVE PERCENT 21 % (BEAKER) (test code = 430) MONOCYTES RELATIVE PERCENT 8 % (BEAKER) (test code = 431) EOSINOPHILS RELATIVE PERCENT 2 % (BEAKER) (test code = 432) BASOPHILS RELATIVE PERCENT 1 % (BEAKER) (test code = 437) NEUTROPHILS ABSOLUTE COUNT 5.49 K/ L 1.56-6.13 (BEAKER) (test code = 670) LYMPHOCYTES ABSOLUTE COUNT 1.75 K/ L 1.18-3.74 (BEAKER) (test code = 414) MONOCYTES ABSOLUTE COUNT (BEAKER) 0.66 K/ L 0.24-0.36 H (test code = 415) EOSINOPHILS ABSOLUTE COUNT 0.20 K/ L 0.04-0.36 (BEAKER) (test code = 416) BASOPHILS ABSOLUTE COUNT (BEAKER) 0.04 K/ L 0.01-0.08 (test code = 417) IMMATURE GRANULOCYTES-RELATIVE 1 % 0-1 PERCENT (BEAKER) (test code = 2801) POCT-GLUCOSE [id number] 21:04:00 Test Item Value Reference Range Interpretation Comments POC-GLUCOSE METER 135 mg/dL 70-110 H TESTED AT [place] [address] (BEAKER) (test [facility] = [facility] 1538) [address] [id number] 17:08:00 Test Item Value Reference Range Interpretation Comments FERRITIN (BEAKER) (test code = 1367 ng/mL 5-275 H 361) POCT-GLUCOSE [id number] 17:00:00 Test Item Value Reference Range Interpretation Comments POC-GLUCOSE METER 137 mg/dL 70-110 H [facility] [place] [address] [facility] (test code = [facility] 1538) [address] IRON, TIBC, % SAT. (WITHOUT FERRITIN)2018-10-30 16:48:00 Test Item Value Reference Range Interpretation Comments IRON (BEAKER) (test code = 547) 53.0 ug/dL 40.0-160.0 TOTAL IRON BINDING CAPACITY 135 ug/dL 250-450 L (BEAKER) (test code = 769) IRON % SATURATION (2) (BEAKER) 39 % 20-55 (test code = 2590) RETICULOCYTE [id number] 16:47:00 Test Item Value Reference Range Interpretation Comments RETICULOCYTE COUNT PCT (BEAKER) (test 2.1 % 0.5-1.7 H code = 575) LACTIC ACID, [id number] 14:17:00 Test Item Value Reference Range Interpretation Comments LACTATE BLOOD VENOUS (2) (BEAKER) 1.7 mmol/L 0.5-2.2 (test code = 5072) HEMOGLOBIN AND [id number] 14:03:00 Test Item Value Reference Range Interpretation Comments HEMOGLOBIN (BEAKER) (test code = 6.4 GM/DL 11.2-15.7 L 410) HEMATOCRIT (BEAKER) (test code = 20.2 % 34.1-44.9 L 411) POCT-GLUCOSE [id number] 11:11:00 Test Item Value Reference Range Interpretation Comments POC-GLUCOSE METER 143 mg/dL 70-110 H TESTED AT [facility] 6720 (BEAKER) (test code = [place] 1538) [address] [id number] 03:47:00 Test Item Value Reference Range Interpretation Comments PROCALCITONIN (BEAKER) (test code 0.76 ng/mL <0.05 H = 3036) SEPSIS RISK (ng/mL)Low: 0.05-0.50Intermediate: 0.51-2.00High: >=[id number] 02:58:00 Test Item Value Reference Range Interpretation Comments PHOSPHORUS (BEAKER) (test code = 6.8 mg/dL 2.3-4.7 H 604) [id number] 02:58:00 Test Item Value Reference Range Interpretation Comments MAGNESIUM (BEAKER) (test code = 1.9 mg/dL 1.6-2.6 627) LACTIC ACID, [id number] 02:53:00 Test Item Value Reference Range Interpretation Comments LACTATE BLOOD VENOUS 1.6 mmol/L 0.5-2.2 Specime n slightly (2) (BEAKER) (test hemolyzed code = 8632) RAD, CHEST, 1 VIEW, NON [id number] 02:31:00Reason for exam:->altered mental statusShould this be performed at the bedside?->YesFINAL REPORT Chest, 1 view. History: Altered mental status. Comparison: Plain radiograph the chest dated 10/28/2018.. Findings: The cardiomediastinal silhouette and pulmonary vasculature are within normal limits for a portable exam. The lungs are clear without evidence of consolidation or effusion. The soft tissues and osseous structures are intact. IMPRESSION: No acute cardiopulmonary abnormality. Signed: Bernardo [facility]st[facility] Verified Date/Time: 10/30/2018 02:31:36 OXYGEN SATURATION, [id number] 02:25:00 Test Item Value Reference Range Interpretation Comments O2 SATURATION (MEASURED) (BEAKER) 75.1 % (test code = 1455) If patient has internal jugular ( IJ) or subclavian central line or PICC line. Draw from distal port. Label as central venous oxygen.CBC W/PLT COUNT & AUTO [id number] 00:56:00 Test Item Value Reference Range Interpretation Comments WHITE BLOOD CELL COUNT (BEAKER) 9.5 K/ L 3.5-10.5 (test code = 775) RED BLOOD CELL COUNT (BEAKER) 2.02 M/ L 3.93-5.22 L (test code = 761) HEMOGLOBIN (BEAKER) (test code = 6.5 GM/DL 11.2-15.7 L 410) HEMATOCRIT (BEAKER) (test code = 19.6 % 34.1-44.9 L 411) MEAN CORPUSCULAR VOLUME (BEAKER) 97.0 fL 79.4-94.8 H (test code = 753) MEAN CORPUSCULAR HEMOGLOBIN 32.2 pg 25.6-32.2 (BEAKER) (test code = 751) MEAN CORPUSCULAR HEMOGLOBIN CONC 33.2 GM/DL 32.2-35.5 (BEAKER) (test code = 752) RED CELL DISTRIBUTION WIDTH 13.0 % 11.7-14.4 (BEAKER) (test code = 412) PLATELET COUNT (BEAKER) (test 266 K/CU MM 150-450 code = 756) MEAN PLATELET VOLUME (BEAKER) 9.8 fL 9.4-12.3 (test code = 754) NUCLEATED RED BLOOD CELLS 0 /100 WBC 0-0 (BEAKER) (test code = 413) NEUTROPHILS RELATIVE PERCENT 77 % (BEAKER) (test code = 429) LYMPHOCYTES RELATIVE PERCENT 14 % (BEAKER) (test code = 430) MONOCYTES RELATIVE PERCENT 7 % (BEAKER) (test code = 431) EOSINOPHILS RELATIVE PERCENT 2 % (BEAKER) (test code = 432) BASOPHILS RELATIVE PERCENT 0 % (BEAKER) (test code = 437) NEUTROPHILS ABSOLUTE COUNT 7.29 K/ L 1.56-6.13 H (BEAKER) (test code = 670) LYMPHOCYTES ABSOLUTE COUNT 1.34 K/ L 1.18-3.74 (BEAKER) (test code = 414) MONOCYTES ABSOLUTE COUNT (BEAKER) 0.68 K/ L 0.24-0.36 H (test code = 415) EOSINOPHILS ABSOLUTE COUNT 0.14 K/ L 0.04-0.36 (BEAKER) (test code = 416) BASOPHILS ABSOLUTE COUNT (BEAKER) 0.02 K/ L 0.01-0.08 (test code = 417) IMMATURE GRANULOCYTES-RELATIVE 0 % 0-1 PERCENT (BEAKER) (test code = 2801) COMPREHENSIVE METABOLIC [id number] 00:46:00 Test Item Value Reference Range Interpretation Comments TOTAL PROTEIN 4.9 gm/dL 6.0-8.3 L (BEAKER) (test code = 770) ALBUMIN (BEAKER) 2.4 g/dL 3.5-5.0 L (test code = 1145) ALKALINE PHOSPHATASE 54 U/L 40-150 (BEAKER) (test code = 346) BILIRUBIN TOTAL 0.4 mg/dL 0.2-1.2 (BEAKER) (test code = 377) SODIUM (BEAKER) (test 129 meq/L 136-145 L code = 381) POTASSIUM (BEAKER) 3.5 meq/L 3.5-5.1 (test code = 379) CHLORIDE (BEAKER) 91 meq/L 98-107 L (test code = 382) CO2 (BEAKER) (test 24 meq/L 22-29 code = 355) BLOOD UREA NITROGEN 66 mg/dL 7-21 H (BEAKER) (test code = 354) CREATININE (BEAKER) 14.56 mg/dL 0.57-1.25 H (test code = 358) GLUCOSE RANDOM 132 mg/dL 70-105 H (BEAKER) (test code = 652) CALCIUM (BEAKER) 7.9 mg/dL 8.4-10.2 L (test code = 697) AST (SGOT) (BEAKER) 15 U/L 5-34 (test code = 353) ALT (SGPT) (BEAKER) 29 U/L 6-55 (test code = 347) EGFR (BEAKER) (test 3 mL/min/1.73 ESTIMAT ED GFR IS code = 1092) sq m NOT ACCURATE CREATININE CLEARANCE IN PREDICTING GLOMERULAR FILTRATION RATE . ESTIMATED GFR I S NOT APPLICABLE FOR DIALYSIS PATIEN TS. LACTIC ACID, [id number] 00:27:00 Test Item Value Reference Range Interpretation Comments LACTATE BLOOD VENOUS (2) (BEAKER) 1.9 mmol/L 0.5-2.2 (test code = 2872) BLOOD GAS, [id number] 00:24:00 Test Item Value Reference Range Interpretation Comments PH ARTERIAL (BEAKER) (test code = 7.48 7.35-7.45 H 383) PCO2 ARTERIAL (BEAKER) (test code 35 mmHg 35-45 = 384) PO2 ARTERIAL (BEAKER) (test code = 68 mmHg 80-90 L 385) O2 SATURATION ARTERIAL (BEAKER) 94.8 % 96.0-97.0 L (test code = 386) HCO3 ARTERIAL (BEAKER) (test code 26 mmol/L 21-29 = 388) BASE EXCESS ARTERIAL (BEAKER) 1.8 mmol/L -2.0-3.0 (test code = 387) PATIENT TEMPERATURE (BEAKER) (test 36.9 C code = 1818) FIO2 (BEAKER) (test code = 1819) 21.0 % POCT-GLUCOSE [id number] 23:54:00 Test Item Value Reference Range Interpretation Comments POC-GLUCOSE METER 249 mg/dL 70-110 H TESTED AT [facility] 6720 (BEAKER) (test code = [place] 1538) [address] BODY FLUID CELL COUNT WITH [id number] 21:57:00 Test Item Value Reference Range Interpretation Comments APPEARANCE FLUID (BEAKER) (test Hazy Clear A code = 510) COLOR FLUID (BEAKER) (test code = Straw Colorless, Straw 511) RBC FLUID (BEAKER) (test code = 160 /cu mm <=1 H 513) ADJUSTED WBC FLUID (BEAKER) (test 480 /cu mm <=5 H code = 1691) LINING CELLS (BEAKER) (test code 10 /cu mm <=1 H = 1590) NEUTROPHILS FLUID (BEAKER) (test 22 % code = 1656) LYMPHS FLUID (BEAKER) (test code 8 % = 488) MONO/MACROPHAGE FLUID (BEAKER) 67 % (test code = 489) EOSINOPHILS FLUID (BEAKER) (test 2 % code = 491) BASO FLUID (BEAKER) (test code = 1 % 492) CONTAINER BODY FLUID (BEAKER) EDTA Tube (test code = 2873) C. DIFFICILE GDH [id number] 10:06:00 Test Item Value Reference Range Interpretation Comments CDT TOXIN (test code Positive Negative A = [id number]) CDT GDH ANTIGEN Positive Negative A Confirms Beti stridium (test code = difficile-assoc iated [id number]) infection.First line therapy - oral Vancomycin. Co ntinue enteric isolati on until 72 hours after treatment is discontinued and symptoms have r esolved. Testing performed by [employer] Rapid Cassette Assay. For GDH, published sensitivity of the assay is 98.7% compared to cytotoxicity testing. For Toxin AB, published sensitivity is 87.8% and specificity 99.4% compared to cytotoxicity testing.Verification of kit performance was done by the [facility] Microbiology Lab prior to clinical use.POCT-GLUCOSE [id number] 09:14:00 Test Item Value Reference Range Interpretation Comments POC-GLUCOSE METER 109 mg/dL 70-110 TESTED AT [facility] 6720 (BEAKER) (test code = [place] 1538) [address] [id number] 08:46:00 Test Item Value Reference Range Interpretation Comments PROCALCITONIN (BEAKER) (test code 0.67 ng/mL <0.05 H = 3036) SEPSIS RISK (ng/mL)Low: 0.05-0.50Intermediate: 0.51-2.00High: >=2.01CBC W/PLT COUNT & AUTO [id number] 08:36:00 Test Item Value Reference Range Interpretation Comments WHITE BLOOD CELL COUNT (BEAKER) 11.1 K/ L 3.5-10.5 H (test code = 775) RED BLOOD CELL COUNT (BEAKER) 2.32 M/ L 3.93-5.22 L (test code = 761) HEMOGLOBIN (BEAKER) (test code = 7.4 GM/DL 11.2-15.7 L 410) HEMATOCRIT (BEAKER) (test code = 23.1 % 34.1-44.9 L 411) MEAN CORPUSCULAR VOLUME (BEAKER) 99.6 fL 79.4-94.8 H (test code = 753) MEAN CORPUSCULAR HEMOGLOBIN 31.9 pg 25.6-32.2 (BEAKER) (test code = 751) MEAN CORPUSCULAR HEMOGLOBIN CONC 32.0 GM/DL 32.2-35.5 L (BEAKER) (test code = 752) RED CELL DISTRIBUTION WIDTH 13.2 % 11.7-14.4 (BEAKER) (test code = 412) PLATELET COUNT (BEAKER) (test 329 K/CU MM 150-450 code = 756) MEAN PLATELET VOLUME (BEAKER) 10.0 fL 9.4-12.3 (test code = 754) NUCLEATED RED BLOOD CELLS 0 /100 WBC 0-0 (BEAKER) (test code = 413) NEUTROPHILS RELATIVE PERCENT 72 % (BEAKER) (test code = 429) LYMPHOCYTES RELATIVE PERCENT 16 % (BEAKER) (test code = 430) MONOCYTES RELATIVE PERCENT 9 % (BEAKER) (test code = 431) EOSINOPHILS RELATIVE PERCENT 2 % (BEAKER) (test code = 432) BASOPHILS RELATIVE PERCENT 0 % (BEAKER) (test code = 437) NEUTROPHILS ABSOLUTE COUNT 8.00 K/ L 1.56-6.13 H (BEAKER) (test code = 670) LYMPHOCYTES ABSOLUTE COUNT 1.80 K/ L 1.18-3.74 (BEAKER) (test code = 414) MONOCYTES ABSOLUTE COUNT (BEAKER) 0.98 K/ L 0.24-0.36 H (test code = 415) EOSINOPHILS ABSOLUTE COUNT 0.22 K/ L 0.04-0.36 (BEAKER) (test code = 416) BASOPHILS ABSOLUTE COUNT (BEAKER) 0.03 K/ L 0.01-0.08 (test code = 417) IMMATURE GRANULOCYTES-RELATIVE 0 % 0-1 PERCENT (BEAKER) (test code = 2808) VITAMIN [id number] 07:12:00 Test Item Value Reference Range Interpretation Comments VITAMIN B12 (BEAKER) (test code = 680 pg/mL 213-816 774) TSH/FREE T4 IF [id number] 07:12:00 Test Item Value Reference Range Interpretation Comments THYROID STIMULATING HORMONE 0.94 uIU/mL 0.35-4.94 (BEAKER) (test code = 772) OSMOLALITY, [id number] 07:06:00 Test Item Value Reference Range Interpretation Comments OSMOLALITY, SERUM (BEAKER) (test 296 mOsm/kg 275-295 H code = 615) BASIC METABOLIC [id number] 06:11:00 Test Item Value Reference Range Interpretation Comments SODIUM (BEAKER) 131 meq/L 136-145 L (test code = 381) POTASSIUM (BEAKER) 3.9 meq/L 3.5-5.1 (test code = 379) CHLORIDE (BEAKER) 92 meq/L 98-107 L (test code = 382) CO2 (BEAKER) (test 24 meq/L 22-29 code = 355) BLOOD UREA NITROGEN 60 mg/dL 7-21 H (BEAKER) (test code = 354) CREATININE (BEAKER) 14.09 mg/dL 0.57-1.25 H (test code = 358) GLUCOSE RANDOM 82 mg/dL 70-105 (BEAKER) (test code = 652) CALCIUM (BEAKER) 8.1 mg/dL 8.4-10.2 L (test code = 697) EGFR (BEAKER) (test 3 mL/min/1.73 ESTIMAT ED GFR IS code = 1092) sq m NOT ACCURATE CREATININE CLEARANCE IN PREDICTING GLOMERULAR FILTRATION RATE . ESTIMATED GFR I S NOT APPLICABLE FOR DIALYSIS PATIEN TS. C-REACTIVE [id number] 06:05:00 Test Item Value Reference Range Interpretation Comments C-REACTIVE PROTEIN (BEAKER) (test 1.72 mg/dL 0.00-0.50 H code = 676) [id number] 06:05:00 Test Item Value Reference Range Interpretation Comments PHOSPHORUS (BEAKER) (test code = 7.4 mg/dL 2.3-4.7 H 604) [id number] 06:05:00 Test Item Value Reference Range Interpretation Comments MAGNESIUM (BEAKER) (test code = 2.0 mg/dL 1.6-2.6 627) HEPATIC FUNCTION [id number] 06:05:00 Test Item Value Reference Range Interpretation Comments TOTAL PROTEIN (BEAKER) (test code = 5.3 gm/dL 6.0-8.3 L 770) ALBUMIN (BEAKER) (test code = 1145) 2.7 g/dL 3.5-5.0 L BILIRUBIN TOTAL (BEAKER) (test code 0.5 mg/dL 0.2-1.2 = 377) BILIRUBIN DIRECT (BEAKER) (test 0.3 mg/dL 0.1-0.5 code = 706) ALKALINE PHOSPHATASE (BEAKER) (test 55 U/L 40-150 code = 346) AST (SGOT) (BEAKER) (test code = 19 U/L 5-34 353) ALT (SGPT) (BEAKER) (test code = 39 U/L 6-55 347) [id number] 05:56:00 Test Item Value Reference Range Interpretation Comments AMMONIA (BEAKER) (test code = 348) 16 mol/L 18-72 L RAD, CHEST, 1 VIEW, NON [id number] 21:14:00Reason for exam:->chest painIs the patient ?->UnknownShould this be [facility]?->YesFINAL REPORT Chest, 1 view. History: Chest pain Comparison: Plain radiographthe chest dated 01/15/2018.. Findings: The cardiomediastinal silhouette and pulmonary vasculature are within normal limits for a portable exam. The lungs are clear without evidence of consolidation or effusion. The soft tissues and osseous structures are intact. IMPRESSION: No acute cardiopulmonaryabnormality. Signed: Bernardo Pleitez MDReport Verified Date/Time: 10/28/2018 21:14:02 URINALYSIS [id number] 20:54:00 Test Item Value Reference Range Interpretation Comments RBC UA (BEAKER) (test code = 519) 1 /HPF WBC UA (BEAKER) (test code = 520) 10 /HPF SQUAMOUS EPITHELIAL (BEAKER) (test 5 /HPF code = 516) HYALINE CASTS (BEAKER) (test code = 2 /LPF 514) URINALYSIS WITH MICROSCOPIC IF [id number] 20:52:00 Test Item Value Reference Range Interpretation Comments COLOR (BEAKER) (test code = 470) Light Yellow CLARITY (BEAKER) (test code = Hazy 469) SPECIFIC GRAVITY UA (BEAKER) 1.007 1.001-1.035 (test code = 468) PH UA (BEAKER) (test code = 467) 6.5 5.0-8.0 PROTEIN UA (BEAKER) (test code = 30 mg/dL Negative A 464) GLUCOSE UA (BEAKER) (test code = Negative Negative 365) KETONES UA (BEAKER) (test code = Negative Negative 371) BILIRUBIN UA (BEAKER) (test code Negative Negative = 462) BLOOD UA (BEAKER) (test code = Trace Negative A 461) NITRITE UA (BEAKER) (test code = Negative Negative 465) LEUKOCYTE ESTERASE UA (BEAKER) Moderate Negative A (test code = 466) UROBILINOGEN UA (BEAKER) (test 0.2 mg/dL 0.2-1.0 code = 463) SOURCE(BEAKER) (test code = 2795) BASIC METABOLIC [id number] 20:32:00 Test Item Value Reference Range Interpretation Comments SODIUM (BEAKER) 131 meq/L 136-145 L (test code = 381) POTASSIUM (BEAKER) 3.8 meq/L 3.5-5.1 (test code = 379) CHLORIDE (BEAKER) 91 meq/L 98-107 L (test code = 382) CO2 (BEAKER) (test 26 meq/L 22-29 code = 355) BLOOD UREA NITROGEN 59 mg/dL 7-21 H (BEAKER) (test code = 354) CREATININE (BEAKER) 13.21 mg/dL 0.57-1.25 H (test code = 358) GLUCOSE RANDOM 98 mg/dL 70-105 (BEAKER) (test code = 652) CALCIUM (BEAKER) 8.4 mg/dL 8.4-10.2 (test code = 697) EGFR (BEAKER) (test 4 mL/min/1.73 ESTIMAT ED GFR IS code = 1092) sq m NOT ACCURATE CREATININE CLEARANCE IN PREDICTING GLOMERULAR FILTRATION RATE . ESTIMATED GFR I S NOT APPLICABLE FOR DIALYSIS PATIEN TS. [id number] 20:29:00 Test Item Value Reference Range Interpretation Comments MAGNESIUM (BEAKER) (test code = 2.0 mg/dL 1.6-2.6 627) [id number] 20:29:00 Test Item Value Reference Range Interpretation Comments LIPASE (BEAKER) (test code = 749) 65 U/L 8-78 [id number] 20:10:00 Test Item Value Reference Range Interpretation Comments PROTIME (BEAKER) (test code = 12.9 seconds 11.9-14.2 759) INR (BEAKER) (test code = 370) 1.0 <=5.9 PARTIAL THROMBOPLASTIN TIME 29.8 seconds 22.5-36.0 (BEAKER) (test code = 760) Effective 08/21/2018: PT Reference Range ChangeNew: 11.9-14.2 Previous: 11.7- 14.7RECOMMENDED COUMADIN/WARFARIN INR THERAPY RANGESSTANDARD DOSE: 2.0-3.0 Includes: PROPHYLAXIS for venous thrombosis, systemic embolization; TREATMENT for venous thrombosis and/or pulmonary embolus.HIGH RISK: Target INR is2.5-3.5 for patients wiht mechanical heart valves.CBC W/PLT COUNT & AUTO [id number] 20:05:00 Test Item Value Reference Range Interpretation Comments WHITE BLOOD CELL COUNT (BEAKER) 12.1 K/ L 3.5-10.5 H (test code = 775) RED BLOOD CELL COUNT (BEAKER) 2.41 M/ L 3.93-5.22 L (test code = 761) HEMOGLOBIN (BEAKER) (test code = 7.8 GM/DL 11.2-15.7 L 410) HEMATOCRIT (BEAKER) (test code = 23.5 % 34.1-44.9 L 411) MEAN CORPUSCULAR VOLUME (BEAKER) 97.5 fL 79.4-94.8 H (test code = 753) MEAN CORPUSCULAR HEMOGLOBIN 32.4 pg 25.6-32.2 H (BEAKER) (test code = 751) MEAN CORPUSCULAR HEMOGLOBIN CONC 33.2 GM/DL 32.2-35.5 (BEAKER) (test code = 752) RED CELL DISTRIBUTION WIDTH 13.1 % 11.7-14.4 (BEAKER) (test code = 412) PLATELET COUNT (BEAKER) (test 323 K/CU MM 150-450 code = 756) MEAN PLATELET VOLUME (BEAKER) 9.7 fL 9.4-12.3 (test code = 754) NUCLEATED RED BLOOD CELLS 0 /100 WBC 0-0 (BEAKER) (test code = 413) NEUTROPHILS RELATIVE PERCENT 71 % (BEAKER) (test code = 429) LYMPHOCYTES RELATIVE PERCENT 18 % (BEAKER) (test code = 430) MONOCYTES RELATIVE PERCENT 9 % (BEAKER) (test code = 431) EOSINOPHILS RELATIVE PERCENT 1 % (BEAKER) (test code = 432) BASOPHILS RELATIVE PERCENT 0 % (BEAKER) (test code = 437) NEUTROPHILS ABSOLUTE COUNT 8.57 K/ L 1.56-6.13 H (BEAKER) (test code = 670) LYMPHOCYTES ABSOLUTE COUNT 2.20 K/ L 1.18-3.74 (BEAKER) (test code = 414) MONOCYTES ABSOLUTE COUNT (BEAKER) 1.11 K/ L 0.24-0.36 H (test code = 415) EOSINOPHILS ABSOLUTE COUNT 0.16 K/ L 0.04-0.36 (BEAKER) (test code = 416) BASOPHILS ABSOLUTE COUNT (BEAKER) 0.03 K/ L 0.01-0.08 (test code = 417) IMMATURE GRANULOCYTES-RELATIVE 1 % 0-1 PERCENT (BEAKER) (test code = 2801) CT, BRAIN, WITHOUT [id number] 19:38:00Reason for exam:->ALTERED MENTAL STATUSReason for exam:->GENERALIZED WEAKNESS, NOT ASSOCIATED WITH EXTREMITIESIs the patient ?->UnknownWhat is the patient's sedation requirement?->No SedationFINAL REPORT CT, BRAIN, WITHOUT CONTRAST CLINICAL INDICATION: Confusion/delirium, altered LOC, unexplainedALTERED MENTAL STATUSGENERALIZED WEAKNESS, NOT ASSOCIATED WITH EXTREMITIES COMPARISON: None TECHNIQUE: Noncontrast axial CT imaging of the brain and skull. DOSE REDUCTION: Dose modulation, iterative reconstruction, and/or weight-based adjustment of the mA/kV was utilizedto reduce the radiation dose to as low as reasonably achievable. FINDINGS: Abnormal hypoattenuation w ithin the lentiform nuclei, portions of the external capsule and minimally within the thalami bilaterally. No intracranial hemorrhage, midline shift or mass effect. Midline structures are normally developed. Mild chronic microvascular ischemic changes of the periventricular and subcortical white matter are present. No hydrocephalus. Orbits are within normal limits. No obstructive paranasal sinus disease. IMPRESSION: Abnormal hypoattenuation within the basal ganglia bilaterally. Given bilaterality, findings are most suggestive of toxic injury (including toxic ingestion). Less likely, this may be secondary to severe metabolic derangement or hypotensive hypoxic injury. Given limited involvement of the thalami, deep venous thrombosis is not favored. If there is persistent clinical concern for intracranial pathology, MR examination is recommended for further characterization. Signed: Ruth SkyMDReport Verified Date/Time: 10/28/2018 19:38:10 Reading Location: [address] Neuro Reading Room HEMOGLOBIN [id number] 07:56:00 Test Item Value Reference Range Interpretation Comments HEMOGLOBIN A1C (BEAKER) (test code = 6.1 % 4.3-6.1 368) VITAMIN [id number] 06:59:00 Test Item Value Reference Range Interpretation Comments VITAMIN B12 (BEAKER) (test code = 483 pg/mL 213-816 774) TSH/FREE T4 IF [id number] 06:59:00 Test Item Value Reference Range Interpretation Comments THYROID STIMULATING HORMONE 1.74 uIU/mL 0.35-4.94 (BEAKER) (test code = 772) BASIC METABOLIC [id number] 06:04:00 Test Item Value Reference Range Interpretation Comments SODIUM (BEAKER) 137 meq/L 136-145 (test code = 381) POTASSIUM (BEAKER) 4.0 meq/L 3.5-5.1 (test code = 379) CHLORIDE (BEAKER) 99 meq/L 98-107 (test code = 382) CO2 (BEAKER) (test 25 meq/L 22-29 code = 355) BLOOD UREA NITROGEN 38 mg/dL 7-21 H (BEAKER) (test code = 354) CREATININE (BEAKER) 14.65 mg/dL 0.57-1.25 H (test code = 358) GLUCOSE RANDOM 105 mg/dL 70-105 (BEAKER) (test code = 652) CALCIUM (BEAKER) 8.3 mg/dL 8.4-10.2 L (test code = 697) EGFR (BEAKER) (test 3 mL/min/1.73 ESTIMAT ED GFR IS code = 1092) sq m NOT ACCURATE CREATININE CLEARANCE IN PREDICTING GLOMERULAR FILTRATION RATE . ESTIMATED GFR I S NOT APPLICABLE FOR DIALYSIS PATIEN TS. LIPID [id number] 05:54:00 Test Item Value Reference Range Interpretation Comments TRIGLYCERIDES (BEAKER) (test code = 208 mg/dL 540) CHOLESTEROL (BEAKER) (test code = 119 mg/dL 631) HDL CHOLESTEROL (BEAKER) (test code 23 mg/dL = 976) LDL CHOLESTEROL CALCULATED (BEAKER) 54 mg/dL (test code = 633) Triglyceride Reference Range: Low Risk <150 Borderline 150-199 High Risk 200-499 Very High Risk >=500Cholesterol Reference Range: Low Risk <200 Borderline 200-239 High Risk >240HDL Cholesterol Reference Range: Low Risk >=60 High Risk <40LDL Cholesterol Reference Range: Optimal <100 Near Optimal 100-129 Borderline 130-159 High 160-189 Very High >=190CBC W/PLT COUNT & AUTO [id number] 04:52:00 Test Item Value Reference Range Interpretation Comments WHITE BLOOD CELL COUNT (BEAKER) 6.7 K/ L 3.5-10.5 (test code = 775) RED BLOOD CELL COUNT (BEAKER) 3.65 M/ L 3.93-5.22 L (test code = 761) HEMOGLOBIN (BEAKER) (test code = 11.3 GM/DL 11.2-15.7 410) HEMATOCRIT (BEAKER) (test code = 35.6 % 34.1-44.9 411) MEAN CORPUSCULAR VOLUME (BEAKER) 97.5 fL 79.4-94.8 H (test code = 753) MEAN CORPUSCULAR HEMOGLOBIN 31.0 pg 25.6-32.2 (BEAKER) (test code = 751) MEAN CORPUSCULAR HEMOGLOBIN CONC 31.7 GM/DL 32.2-35.5 L (BEAKER) (test code = 752) RED CELL DISTRIBUTION WIDTH 13.4 % 11.7-14.4 (BEAKER) (test code = 412) PLATELET COUNT (BEAKER) (test 241 K/CU MM 150-450 code = 756) MEAN PLATELET VOLUME (BEAKER) 10.5 fL 9.4-12.3 (test code = 754) NUCLEATED RED BLOOD CELLS 0 /100 WBC 0-0 (BEAKER) (test code = 413) NEUTROPHILS RELATIVE PERCENT 56 % (BEAKER) (test code = 429) LYMPHOCYTES RELATIVE PERCENT 32 % (BEAKER) (test code = 430) MONOCYTES RELATIVE PERCENT 7 % (BEAKER) (test code = 431) EOSINOPHILS RELATIVE PERCENT 4 % (BEAKER) (test code = 432) BASOPHILS RELATIVE PERCENT 1 % (BEAKER) (test code = 437) NEUTROPHILS ABSOLUTE COUNT 3.75 K/ L 1.56-6.13 (BEAKER) (test code = 670) LYMPHOCYTES ABSOLUTE COUNT 2.15 K/ L 1.18-3.74 (BEAKER) (test code = 414) MONOCYTES ABSOLUTE COUNT (BEAKER) 0.45 K/ L 0.24-0.36 H (test code = 415) EOSINOPHILS ABSOLUTE COUNT 0.23 K/ L 0.04-0.36 (BEAKER) (test code = 416) BASOPHILS ABSOLUTE COUNT (BEAKER) 0.04 K/ L 0.01-0.08 (test code = 417) IMMATURE GRANULOCYTES-RELATIVE 1 % 0-1 PERCENT (BEAKER) (test code = 2801) MR, BRAIN, WITHOUT [id number] 04:11:00FINAL REPORT MRI Brain without contrast Clinical History: TIA/Stroke Technique: MRI of the brain utilizing axial T2, FLAIR, GRE, DWI; sagittal and coronal T1- weighted images. MRAof the head utilizing 3-D kqcm-fe-dtutix technique, with 3-D reconstructions. MRA of the neck utilizing 2-D and 3-D epzi-ip-pnbvsq technique, with 3-D reconstructions. Comparisons: None Findings:MRI brainThere is no evidence of acute infarct or hemorrhage. Symmetric T2/FLAIR signal hyperintensity in the bilateral putamen. Few bilateral T2 and FLAIR hyperintense white matter foci likely represent chronic white matter microvascular disease. There is no hydrocephalus or midline shift. There are no extra-axial fluid collections. The craniocervical junction is preserved. The major intracranial flow-voids appear patent. MRA head: There is no evidence of intracranial aneurysm, focal stenosis, or major branch vessel occlusion. MRA neck: The carotid arteries in the neck are patent including their bifurcations. There is antegrade flow in the vertebral arteries in the neck. IMPRESSION:MRI brain: Noevidence of acute infarct, hemorrhage, or hydrocephalus. Symmetric FLAIR signal hyperintensity within the bilateral containment, nonspecific however can be seen in setting of metabolic derangement suchas uremic encephalopathy or extrapontine osmotic myelinolysis. MRA head: No evidence for a major [place] proximal branch vessel occlusion. MRA neck: No evidence of hemodynamically significant stenosis in the cervical carotid or vertebral arteries by NASCET criteria. Signed: Bernardo Pleitezeport Verified Date/Time: 08/19/2018 04:11:07 Reading Location: [address] Reading Room MR, MRA, BRAIN, WITHOUT [id number] 04:11:00FINAL REPORT MRI Brain without contrast Clinical History: TIA/Stroke Technique: MRI of the brain utilizing axial T2, FLAIR, GRE, DWI; sagittal and coronal T1-weighted images. MRAof the head utilizing 3-D fjau-dh-krwfmx technique, with 3-D reconstructions. MRA of the neck utilizing 2- D and 3-D llxp-hh-oskzks technique, with 3-D reconstructions. Comparisons: None Findings:MRI brainThere is no evidence of acute infarct or hemorrhage. Symmetric T2/FLAIR signal hyperintensity in the bilateral putamen. Few bilateral T2 and FLAIR hyperintense white matter foci likely represent chronic white matter microvascular disease. There is no hydrocephalus or midline shift. There are no extra-axial fluid collections. The craniocervical junction is preserved. The major intracranial flow-voids appear patent. MRA head: There is no evidence of intracranial aneurysm, focal stenosis, or major branch vessel occlusion. MRA neck: The carotid arteries in the neck are patent including their bifurcations. There is antegrade flow in the vertebral arteries in the neck. IMPRESSION:MRI brain: Noevidence of acute infarct, hemorrhage, or hydrocephalus. Symmetric FLAIR signal hyperintensity within the bilateral containment, nonspecific however can be seen in setting of metabolic derangement suchas uremic encephalopathy or extrapontine osmotic myelinolysis. MRA head: No evidence for a major [place] proximal branch vessel occlusion. MRA neck: No evidence of hemodynamically significant stenosis in the cervical carotid or vertebral arteries by NASCET criteria. Signed: Bernardo Pleitez Verified Date/Time: 08/19/2018 04:11:07 Reading Location: [address] Transitional Reading Room MR, MRA, NECK, WITHOUT IV [id number] 04:11:00Reason for exam:->Stroke/TIAFINAL REPORT MRI Brain without contrast Clinical History: TIA/Stroke Technique: MRI of the brain utilizing axial T2, FLAIR, GRE, DWI; sagittal and coronal T1-weighted images. MRAof the head utilizing 3-D ekzl-ka-ohkliq technique, with 3-D reconstructions. MRA of the neck utilizing 2-D and 3-D vwjo-bu-xukqvu technique, with 3-D reconstructions. Comparisons: None Findings:MRI brainThere is no evidence of acute infarct or hemorrhage. Symmetric T2/FLAIR signal hyperintensity in the bilateral putamen. Few bilateral T2 and FLAIR hyperintense white matter foci likely represent chronic white matter microvascular disease. There is no hydrocephalus or midline shift. There are no extra-axial fluid collections. The craniocervical junction is preserved. The major intracranial flow-voids appear patent. MRA head: There is no evidence of intracranial aneurysm, focal stenosis, or major branch vessel occlusion. MRA neck: The carotid arteries in the neck are patent including their bifurcations. There is antegrade flow in the vertebral arteries in the neck. IMPRESSION:MRI brain: Noevidence of acute infarct, hemorrhage, or hydrocephalus. Symmetric FLAIR signal hyperintensity within the bilateral containment, nonspecific however can be seen in setting of metabolic derangement suchas uremic encephalopathy or extrapontine osmotic myelinolysis. MRA head: No evidence for a major [place] proximal branch vessel occlusion. MRA neck: No evidence of hemodynamically significant stenosis in the cervical carotid or vertebral arteries by NASCET criteria. Signed: Bernardo Pleitez Verified Date/Time: 08/19/2018 04:11:07 Reading Location: [facility] C013T Transitional Reading Room POCT-GLUCOSE [id number] 21:55:00 Test Item Value Reference Range Interpretation Comments POC-GLUCOSE METER 115 mg/dL 70-110 H TESTED AT [place] [address] ([facility]) (test code = [facility] 1538) [id number] POCT-GLUCOSE [id number] 18:29:00 Test Item Value Reference Range Interpretation Comments POC-GLUCOSE METER 93 mg/dL 70-110 TESTED AT [place] [address] ([facility]) (test code = [facility] [address] 1538) CT, CTA [id number] 10:10:00Reason for Exam:->assess iliac vessels, pre kidney transplantAddendum BeginsREPORT STATUS:A Addendum: I agree with the previously described non vascular findings. Signed: Cristopher Newort Verified Date/Time: 06/27/2018 10:10:18 Reading Location: [facility] P048 Angio Body Reading RoomAddendum EndsFINAL REPORT CT angiography of the abdominal aorta and pelvic arteries, 25-Jun-18 INDICATION: This is a 53 year oldfemale with end-stage renal disease, presents for pretransplant assessment. This study is performed in an attempt to avoid an invasive procedure. TECHNIQUE: Spiral acquisition before and during intravenous contrast administration using a Modulus Video multidetector CT scanner. Images were obtained before and during the dynamic passage of intravenous contrast material. Multi-planar 3-D volume-rendering reconstruction was performed using an independent workstation interactively by the interpreting physician as well as the 3-D specialist for optimal visualisation of the abdominal aorta, pelvic arteries, and itsproximal branches. Please refer to the contrast sheet scanned in the EPIC system for the amount and route of contrast given. This exam was performed according to our departmental dose-optimisation programme, which includes automated exposure control, adjustment of the mA and/or kV according to patientsize and/or use of iterative reconstruction technique. Dose modulation, iterative reconstruction, and/or weight based adjustment of the mA/kV was utilized to reduce the radiation dose to as low as reasonably achievable. FINDINGS: VASCULAR: The abdominal aorta is normal in course, calibre and contour. There is no evidence of acute aortic pathology, specifically, there is no dissection, intramural hematoma, or contained rupture. Quantitative dimensions of the abdominal aorta are as follows: 2.0 cm at the mesenteric segment; 1.5 cm at the renal segment,; and 1.6 cm at the aortic bifurcation. The common iliac, external iliac, common femoral, and the visualized superficial femoral arteries, bilaterally, are widely patent, except for minimal calcific atherosclerosis identified proximally. Ops Analyst dimensions of the left and the right external iliac arteries are 6 and 6 mm, respectively. Similarly, the associated pelvic veins are patent with no venous thrombosis identified. Ops Analyst dimensions of the left and the right external iliac veins are 11 and 10 mm, respectively. Single left and right renal arteries are seen. Cavitation is seen at the takeoff of the left renal artery. Theceliac axis, SMA, and YOLA are widely patent. There are single left and right renal veins that drainnormally into inferior vena cava. NON-VASCULAR: The lung bases are unremarkable. No pleural effusionis identified. In the abdomen, the liver and spleen appears unremarkable. The liver edge is smooth. No abnormal enhancing structures identified. Multiple small gallstones are seen, with no wall thickeni ng or biliary ductal dilation identified. The adrenal glands are not enlarged. The pancreas appears grossly unremarkable. Patient has end-stage renal disease status. No hydronephrosis or perirenal fluid collection is seen. There could be nonobstructive renal stones identified bilaterally in the precontrast series for example at image 25. Hypodensities are identified in the lateral aspect of the rightkidney, too small to characterise. Bowel is not well assessed by CT angiography as enteric contrast is not given. No obvious bowel dilation is identified. Scattered colonic diverticulum is seen with noinflammatory changes identified. A catheter is identified likely represent patient's dialysis cathete r, with tip in the pelvis. No free air is identified. Some trace free fluid is identified in the dependent portion of the pelvis. The bladder appears unremarkable. The uterus is not identified. No obvious abnormal adnexal mass is seen and CT is not optimised in the assessment of pelvic gynaecological s tructures. No significant retroperitoneal adenopathy is identified. In the bony windows, no acute bony pathology is seen. Mild degenerative changes is noted. CONCLUSIONS: 1. The abdominal aorta is normal in course, calibre and contour. There is no evidence of acute aortic pathology, specifically, there is no dissection, intramural hematoma, or contained rupture. Quantitative dimension of the abdominal aorta are as noted. The pelvic arteries and veins are widely patent with no arterial stenosis or venous thrombosis identified. Ops Analyst dimensions of the left and the right external iliacarteries and veins are as described above. 2. Widely patent mesenteric arteries. Patent renal arteries. 3. Other findings as described above. 4. An addendum will be dictated regarding the non-vascular findings by the [employer] Associate Radiologist. Signed: Samson Mcgill MDReport Verified Date/Time: 06/25/2018 09:45:12 Reading Location: [place] [address] Cardiology MRI OCCULT BLOOD, [id number] 00:49:00 Test Item Value Reference Range Interpretation Comments FECAL OCCULT BLOOD (BEAKER) (test Negative Negative code = 618) U/S, ABDOMINAL, [id number] 13:53:00Reason for Exam:->pre transplant evaluationFINAL REPORT Abdominal ultrasound Clinical History: End-stage renal disease,prekidney transplant evaluation Comparison: None available Findings:Sonographic evaluation of the the abdomen is performed. The pancreas is not well visualized secondary to prominent adjacent bowel gas. The liver is normal in size measuring 15.3 cm in length. The hepatic parenchyma is homogeneous without evidence for focal abnormality. The main portal vein is patent with a diameter 0.7 cm, within normal limits. Shadowing stones are identified within the lumen of the gallbladder. There is no evidencefor gallbladder wall thickening or pericholecystic fluid. There is no intra or extrahepatic biliary ductal dilatation. The common bile duct measures 2 mm. Sonographic Gilliam sign is negative. The spleen is normal in size measuring 9.7 cm in length and demonstrates an unremarkable sonographic appearance. The kidneys are small and echogenic with decreased cortical thickness compatible with patient's history of end-stage renal disease. The right kidney measures 8.6 cm in length. The left kidney measures 8.0 cm in length. There is no evidence for solid renal mass, hydronephrosis, or shadowing calculi. The IVC is unremarkable. The proximal aorta is normal in caliber. The distal aorta is not well visualized secondary to prominent adjacent bowel gas. There is no ascites or pleural fluid visualized. Impression: 1. Sonographic findings suggestive of chronic medical renal disease. 2. Cholelithiasis without sonographic evidence for acute cholecystitis. Signed: Edwar Thayer MDReport Verified Date/Time: 05/02/2017 13:53:56 Reading Location: [address] Ultrasound Reading Room Electronically signedby: EDWAR THAYER MD on 03/01/2018 01:53 PMOCCULT BLOOD, [id number] 11:11:00 Test Item Value Reference Range Interpretation Comments FECAL OCCULT BLOOD (BEAKER) (test Negative Negative code = 618) [id number] 10:23:00 Test Item Value Reference Range Interpretation Comments PHOSPHORUS (BEAKER) (test code = 3.9 mg/dL 2.3-4.7 604) PROTHROMBIN TIME/[id number] 10:21:00 Test Item Value Reference Range Interpretation Comments PROTIME (BEAKER) (test code = 13.2 seconds 11.7-14.7 759) INR (BEAKER) (test code = 370) 1.0 <=5.9 RECOMMENDED COUMADIN/WARFARIN INR THERAPY RANGESSTANDARD DOSE: 2.0 - 3.0 Includes: PROPHYLAXIS forvenous thrombosis, systemic embolization; TREATMENT for venous thrombosis and/or pulmonary embolus.HIGH RISK: Target INR is 2.5-3.5 for patients with mechanical heart valves.URINE [id number] 10:03:00 Test Item Value Reference Range Interpretation Comments CULTURE (BEAKER) (test 40-49,000 col/mL skin code = 1095) johnny CYTOMEGALOVIRUS ANTIBODY, [id number] 10:10:00 Test Item Value Reference Range Interpretation Comments CYTOMEGALOVIRUS, IGG (BEAKER) Positive Negative, Equivocal A (test code = 3429) CMV IgG Result Interpretation: </= 0.8 Al Negative 0.9-1.0 Al Equivocal >/=1.1 Al PositiveCYTOMEGALOVIRUS ANTIBODY, [id number] 10:10:00 Test Item Value Reference Range Interpretation Comments CYTOMEGALOVIRUS IGM ANTIBODY Positive Negative, Equivocal A (BEAKER) (test code = 3437) CMV IgM Result Interpretation: </= 0.8 Al Negative 0.9-1.0 Al Equivocal >/= 1.1 Al PositiveEBV ANTIBODY, [id number] 10:10:00 Test Item Value Reference Range Interpretation Comments ASHELY MCMAHON VIRAL CAPSID Positive Negative, Equivocal A ANTIGEN IGG (BEAKER) (test code = 3415) Ashely Mcmahon Viral Capsid Antigen IgG Result Interpretation: </= 0.8 Al Negative 0.9-1.0 Al Equivocal >/= 1.1 Al PositiveEBV ANTIBODY, IGM 2018-01-16 10:10:00 Test Item Value Reference Range Interpretation Comments ASHELY MCMAHON VIRAL CAPSID Negative Negative, Equivocal ANTIGEN IGM (BEAKER) (test code = 3418) Ashely Mcmahon Viral Capsid Antigen IgM Result Interpretation: </= 0.8 Al Negative 0.9-1.0 Al Equivocal >/= 1.1 Al PositiveVARICELLA ZOSTER ANTIBODY, [id number] 10:09:00 Test Item Value Reference Range Interpretation Comments VARICELLA ZOSTER IGG (AL) (BEAKER) > (test code = 3197) VARICELLA ZOSTER RESULT INTERPRETATIONS: <=0.8 Al Nonreactive: Presumed non-immune to VZV 0.9-1.0 Al Equivocal >=1.1 Al Reactive: Presumed immune to [id number] 07:38:00 Test Item Value Reference Range Interpretation Comments RPR SCREEN (BEAKER) (test code = Nonreactive Nonreactive 420) CBC W/PLT COUNT & AUTO [id number] 14:38:00 Test Item Value Reference Range Interpretation Comments WHITE BLOOD CELL COUNT (BEAKER) 8.6 K/ L 3.5-10.5 (test code = 775) RED BLOOD CELL COUNT (BEAKER) 3.20 M/ L 3.93-5.22 L (test code = 761) HEMOGLOBIN (BEAKER) (test code = 9.9 GM/DL 11.2-15.7 L 410) HEMATOCRIT (BEAKER) (test code = 32.3 % 34.1-44.9 L 411) MEAN CORPUSCULAR VOLUME (BEAKER) 100.9 fL 79.4-94.8 H (test code = 753) MEAN CORPUSCULAR HEMOGLOBIN 30.9 pg 25.6-32.2 (BEAKER) (test code = 751) MEAN CORPUSCULAR HEMOGLOBIN CONC 30.7 GM/DL 32.2-35.5 L (BEAKER) (test code = 752) RED CELL DISTRIBUTION WIDTH 12.6 % 11.7-14.4 (BEAKER) (test code = 412) PLATELET COUNT (BEAKER) (test 403 K/CU MM 150-450 code = 756) MEAN PLATELET VOLUME (BEAKER) 9.8 fL 9.4-12.3 (test code = 754) NUCLEATED RED BLOOD CELLS 0 /100 WBC 0-0 (BEAKER) (test code = 413) NEUTROPHILS RELATIVE PERCENT 62 % (BEAKER) (test code = 429) LYMPHOCYTES RELATIVE PERCENT 31 % (BEAKER) (test code = 430) MONOCYTES RELATIVE PERCENT 5 % (BEAKER) (test code = 431) EOSINOPHILS RELATIVE PERCENT 1 % (BEAKER) (test code = 432) BASOPHILS RELATIVE PERCENT 0 % (BEAKER) (test code = 437) NEUTROPHILS ABSOLUTE COUNT 5.31 K/ L 1.56-6.13 (BEAKER) (test code = 670) LYMPHOCYTES ABSOLUTE COUNT 2.66 K/ L 1.18-3.74 (BEAKER) (test code = 414) MONOCYTES ABSOLUTE COUNT (BEAKER) 0.45 K/ L 0.24-0.36 H (test code = 415) EOSINOPHILS ABSOLUTE COUNT 0.12 K/ L 0.04-0.36 (BEAKER) (test code = 416) BASOPHILS ABSOLUTE COUNT (BEAKER) 0.03 K/ L 0.01-0.08 (test code = 417) IMMATURE GRANULOCYTES-RELATIVE 0 % 0-1 PERCENT (BEAKER) (test code = 2801) RAD, CHEST, 2 [id number] 12:48:00Reason for Exam:->pre transplant evaluationFINAL REPORT PA and Lateral views of the chest dated 01/15/2018 Clinical information: pre transplant evaluation Comment: Heart is normal in size. Pulmonary vasculature is unremarkable. Lungs are clear. No pulmonary infiltrate or pleural effusion is present. Impression: No active cardiopulmonary disease. Signed: Daiana Anaya Verified Date/Time: 01/15/2018 12:48:30 Reading Location: [address] Radiology Reading Room HEMOGLOBIN [id number] 11:27:00 Test Item Value Reference Range Interpretation Comments HEMOGLOBIN A1C (BEAKER) (test code = 5.6 % 4.3-6.1 368) URINALYSIS W/ [id number] 11:23:00 Test Item Value Reference Range Interpretation Comments COLOR (BEAKER) (test code = 470) Yellow CLARITY (BEAKER) (test code = 469) Hazy SPECIFIC GRAVITY UA (BEAKER) (test 1.012 1.001-1.035 code = 468) PH UA (BEAKER) (test code = 467) 5.5 5.0-8.0 PROTEIN UA (BEAKER) (test code = 100 mg/dL Negative A 464) GLUCOSE UA (BEAKER) (test code = Negative Negative 365) KETONES UA (BEAKER) (test code = Negative Negative 371) BILIRUBIN UA (BEAKER) (test code = Negative Negative 462) BLOOD UA (BEAKER) (test code = Negative Negative 461) NITRITE UA (BEAKER) (test code = Negative Negative 465) LEUKOCYTE ESTERASE UA (BEAKER) Trace Negative A (test code = 466) UROBILINOGEN UA (BEAKER) (test 0.2 mg/dL 0.2-1.0 code = 463) RBC UA (BEAKER) (test code = 519) < /HPF WBC UA (BEAKER) (test code = 520) 4 /HPF BACTERIA (BEAKER) (test code = Occasional 517) SQUAMOUS EPITHELIAL (BEAKER) (test 11 /HPF code = 516) YEAST (BEAKER) (test code = 1585) Rare SOURCE(BEAKER) (test code = 4462) COMPREHENSIVE METABOLIC [id number] 10:41:00 Test Item Value Reference Range Interpretation Comments TOTAL PROTEIN 5.9 gm/dL 6.0-8.3 L (BEAKER) (test code = 770) ALBUMIN (BEAKER) 2.6 g/dL 3.5-5.0 L (test code = 1145) ALKALINE PHOSPHATASE 65 U/L 40-150 (BEAKER) (test code = 346) BILIRUBIN TOTAL 0.3 mg/dL 0.2-1.2 (BEAKER) (test code = 377) SODIUM (BEAKER) (test 137 meq/L 136-145 code = 381) POTASSIUM (BEAKER) 3.6 meq/L 3.5-5.1 (test code = 379) CHLORIDE (BEAKER) 97 meq/L 98-107 L (test code = 382) CO2 (BEAKER) (test 25 meq/L 22-29 code = 355) BLOOD UREA NITROGEN 25 mg/dL 7-21 H (BEAKER) (test code = 354) CREATININE (BEAKER) 10.09 mg/dL 0.57-1.25 H (test code = 358) GLUCOSE RANDOM 152 mg/dL 70-105 H (BEAKER) (test code = 652) CALCIUM (BEAKER) 8.4 mg/dL 8.4-10.2 (test code = 697) AST (SGOT) (BEAKER) 9 U/L 5-34 (test code = 353) ALT (SGPT) (BEAKER) 7 U/L 6-55 (test code = 347) EGFR (BEAKER) (test 5 mL/min/1.73 ESTIMAT ED GFR IS code = 1092) sq m NOT ACCURATE CREATININE CLEARANCE IN PREDICTING GLOMERULAR FILTRATION RATE . ESTIMATED GFR I S NOT APPLICABLE FOR DIALYSIS PATIEN TS. URIC [id number] 10:04:00 Test Item Value Reference Range Interpretation Comments URIC ACID (BEAKER) (test code = 5.5 mg/dL 2.6-7.2 773) GAMMA GLUTAMYL TRANSFERASE (GGT)2018-01-15 10:04:00 Test Item Value Reference Range Interpretation Comments GAMMA GLUTAMYL TRANSFERASE (BEAKER) 17 U/L 9-64 (test code = 364) LACTATE DEHYDROGENASE (LDH)2018-01-15 10:04:00 Test Item Value Reference Range Interpretation Comments LACTATE DEHYDROGENASE (BEAKER) (test 244 U/L 125-220 H code = 635) HEPATITIS B SURFACE [id number] 10:03:00 Test Item Value Reference Range Interpretation Comments HEPATITIS B SURFACE ANTIGEN (2) Nonreactive Nonreactive (BEAKER) (test code = 2585) HEPATITIS B SURFACE [id number] 10:03:00 Test Item Value Reference Range Interpretation Comments HEPATITIS B SURFACE ANTIBODY 69.3 mIU/mL <8.0 H (BEAKER) (test code = 647) HEPATITIS B CORE ANTIBODY, [id number] 10:03:00 Test Item Value Reference Range Interpretation Comments HEPATITIS B CORE IGM ANTIBODY Nonreactive Nonreactive ([employer]) (test code = 645) HEPATITIS C [id number] 10:03:00 Test Item Value Reference Range Interpretation Comments HEPATITIS C ANTIBODY (BEAKER) Nonreactive Nonreactive (test code = 367) HIV-1 ANTIGEN WITH HIV-1/2 [id number] 10:03:00 Test Item Value Reference Range Interpretation Comments HIV-1 ANTIGEN WITH HIV 1\T\2 Nonreactive Nonreactive ANTIBODY (2) ([employer]) (test code = 2586) PTH, [id number] 09:45:00 Test Item Value Reference Range Interpretation Comments PARATHYROID HORMONE INTACT 308.0 pg/mL 8.5-72.5 H ([employer]) (test code = 577) [id number] 09:31:00 Test Item Value Reference Range Interpretation Comments PROTIME ([employer]) (test code = 14.4 seconds 11.7-14.7 759) INR ([employer]) (test code = 370) 1.1 <=5.9 PARTIAL THROMBOPLASTIN TIME 29.8 seconds 22.5-36.0 ([employer]) (test code = 760) RECOMMENDED COUMADIN/WARFARIN INR THERAPY RANGESSTANDARD DOSE: 2.0 - 3.0 Includes: PROPHYLAXIS forvenous thrombosis, systemic embolization; TREATMENT for venous thrombosis and/or pulmonary embolus.HIGH RISK: Target INR is 2.5-3.5 for patients with mechanical heart valves.
[2020-08-02 22:28] LABS: Basophils % 0.7 % (0-1.3); Hematocrit 26.1 % (36.0-45.0); Lymphocytes % 20.4 % (15.3-44.8); MPV 7.2 fL (7.6-11.3); RBC Red Blood Cell Count 2.96 M/uL (3.86-4.86)
[2020-08-02] MEDS ORDERED: NA CHLORIDE 0.9% 1,000 ML ONE (22:32)
[2020-08-02] MEDS ORDERED: NA CHLORIDE 0.9% 250 ML ONE (22:32)
[2020-08-02] MEDS ORDERED: ONDANSETRON 4 MG/2 ML VIAL ONE (22:32)
[2020-08-02] MEDS ORDERED: FAMOTIDINE 20 MG/2 ML VIAL IV ONE (22:32)
[2020-08-02 23:22] LABS: Protime INR 1.12
[2020-08-02 23:56] LABS: ALT/SGPT 9 U/L (12-78); AST/SGOT 11 U/L (15-37); Albumin 1.4 g/dL (3.4-5.0); Alkaline Phosphatase 86 U/L (45-117); BUN Blood Urea Nitrogen 25 mg/dL (7-18); Bicarbonate 30 mmol/L (21-32); Bilirubin Direct 0.1 mg/dL (0-0.2); Bilirubin Total 0.3 mg/dL (0.2-1.0); Glucose Level 78 mg/dL (74-106); Lipase 53 U/L (73-393); Magnesium 1.5 mg/dL (1.8-2.4); NT PRO-BNP 1689 pg/mL (<125); Protein, Total 5.6 g/dL (6.4-8.2); Sodium Level 135 mmol/L (136-145); Troponin (Emerg Dept Use Only) < 0.02 ng/mL (0.0-0.045)
[2020-08-02 23:57] LABS: Potassium 2.9 mmol/L (3.5-5.1)
--- NOTE | 2020-08-03 00:09 | EDPHYS ---
Physician Documentation [facility] Name: Maki Tabares Age: 55 yrs Sex: Female : 1965 Arrival Date: 08/02/2020 Time: 20:19 Bed 16 Private MD: ANUP Physician Mannie Carbajal HPI: 08/02 21:58 This 55 yrs old Black Female presents to ER via Wheelchair with complaints of kirill Difficulty Swallowing, Vomiting. 21:58 The patient presents with dysphagia, of both solids and liquids. The patient describes kirill throat pain as none. Onset: The symptoms/episode began/occurred 3 week(s) ago. Severity of symptoms: At their worst the symptoms were mild, in the emergency department the symptoms are unchanged. Modifying factors: Patient's oral intake status:. Associated signs and symptoms: The patient has no apparent associated signs or symptoms. The patient has experienced similar episodes in the past, several times. Historical: - Allergies: 21:07 SHELLFISH; ca1 - PMHx: 21:07 Diabetes - NIDDM; Dialysis; peritoneal; Hyperlipidemia; Hypertension; Parkinsons; ca1 - PSHx: 21:07 Hysterectomy; arm surgery; Knee surgery; breast reduction; ca1 - Immunization history:: Client reports receiving the 2nd dose of the Covid vaccine, Client reports receiving the 1st dose of the Covid vaccine, Flu vaccine is up to date. - Social history:: Smoking status: Patient denies any tobacco usage or history of. ROS: 22:00 Constitutional: Negative for fever, chills, and weight loss, Eyes: Negative for injury, kirill pain, redness, and discharge, ENT: Negative for injury, pain, and discharge, Neck: Negative for injury, pain, and swelling, Cardiovascular: Negative for chest pain, palpitations, and edema, Respiratory: Negative for shortness of breath, cough, wheezing, and pleuritic chest pain, Back: Negative for injury and pain, : Negative for injury, bleeding, discharge, and swelling, MS/Extremity: Negative for injury and deformity, Skin: Negative for injury, rash, and discoloration, Neuro: Negative for headache, weakness, numbness, tingling, and seizure, Psych: Negative for depression, anxiety, suicide ideation, homicidal ideation, and hallucinations, Allergy/Immunology: Negative for hives, rash, and allergies, Endocrine: Negative for neck swelling, polydipsia, polyuria, polyphagia, and marked weight changes, Hematologic/Lymphatic: Negative for swollen nodes, abnormal bleeding, and unusual bruising. 22:00 Abdomen/GI: Positive for anorexia, dysphagia. Exam: 22:00 Constitutional: This is a well developed, well nourished patient who is awake, alert, kirill and in no acute distress. Head/Face: Normocephalic, atraumatic. Eyes: Pupils equal round and reactive to light, extra-ocular motions intact. Lids and lashes normal. Conjunctiva and sclera are non-icteric and not injected. Cornea within normal limits. Periorbital areas with no swelling, redness, or edema. ENT: Nares patent. No nasal discharge, no septal abnormalities noted. Tympanic membranes are normal and external auditory canals are clear. Oropharynx with no redness, swelling, or masses, exudates, or evidence of obstruction, uvula midline. Mucous membranes moist. Neck: Trachea midline, no thyromegaly or masses palpated, and no cervical lymphadenopathy. Supple, full range of motion without nuchal rigidity, or vertebral point tenderness. No Meningismus. Chest/axilla: Normal chest wall appearance and motion. Nontender with no deformity. No lesions are appreciated. Cardiovascular: Regular rate and rhythm with a normal S1 and S2. No gallops, murmurs, or rubs. Normal PMI, no JVD. No pulse deficits. Respiratory: Lungs have equal breath sounds bilaterally, clear to auscultation and percussion. No rales, rhonchi or wheezes noted. No increased work of breathing, no retractions or nasal flaring. Abdomen/GI: Soft, non-tender, with normal bowel sounds. No distension or tympany. No guarding or rebound. No evidence of tenderness throughout. Back: No spinal tenderness. No costovertebral tenderness. Full range of motion. Female : Normal external genitalia. Skin: Warm, dry with normal turgor. Normal color with no rashes, no lesions, and no evidence of cellulitis. MS/ Extremity: Pulses equal, no cyanosis. Neurovascular intact. Full, normal range of motion. Neuro: Awake and alert, GCS 15, oriented to person, place, time, and situation. Cranial nerves II-XII grossly intact. Motor strength 5/5 in all extremities. Sensory grossly intact. Cerebellar exam normal. Normal gait. Psych: Awake, alert, with orientation to person, place and time. Behavior, mood, and affect are within normal limits. 23:24 ECG was reviewed by the Attending Physician. [facility] Vital Signs: 21:01 BP 127 / 56; Pulse 100; Resp 18 S; Temp 97.6(TE); Pulse Ox 100% on R/A; Weight 73.94 kg ca1 (R); Height 5 ft. 1 in. (154.94 cm); Pain 7/; 23:00 BP 136 / 67; Pulse 94; Resp 16; Pulse Ox 100% on R/A; [facility] 08/03 01:19 BP 135 / 74; Pulse 93; Resp 16; Pulse Ox 100% on R/A; [facility] 08/02 21:01 Body Mass Index 30.80 (73.94 kg, 154.94 cm) ca1 MDM: 08/02 21:24 Patient medically screened. [facility] 22:01 Differential diagnosis: gastroesophageal reflux disease. Data reviewed: vital signs, [facility] nurses notes, lab test result(s), EKG, radiologic studies, CT scan, plain films. Data interpreted: monitoring engineer: rate is 100 beats/min, rhythm is regular, Pulse oximetry: is not applicable for this patient encounter. Test interpretation: by ED physician or midlevel provider: ECG, plain radiologic studies. Counseling: I had a detailed discussion with the patient and/or guardian regarding: the historical points, exam findings, and any diagnostic results supporting the discharge/admit diagnosis, lab results, radiology results. 08/02 21:58 Order name: Basic Metabolic Panel [facility] 08/02 21:58 Order name: CBC with Diff [facility] 08/02 21:58 Order name: LFT's; Complete Time: 00:03 [facility] 08/02 21:58 Order name: Magnesium; Complete Time: 00:03 [facility] 08/02 21:58 Order name: NT PRO-BNP; Complete Time: 00:03 [facility] 08/02 21:58 Order name: PT-INR; Complete Time: 23:38 [facility] 08/02 21:58 Order name: Troponin (emerg Dept Use Only); Complete Time: 00:03 [facility] 08/02 21:58 Order name: XRAY Chest (1 view) [facility] 08/02 21:58 Order name: Lipase; Complete Time: 00:03 [facility] 08/02 21:59 Order name: Basic Metabolic Panel; Complete Time: 00:03 [facility] 08/02 21:59 Order name: CBC with Automated Diff; Complete Time: 22:49 [facility] 08/02 22:49 Order name: Type And Screen [facility] 08/03 00:25 Order name: SARS-COV-2 RT PCR; Complete Time: 00:49 [facility] 08/02 21:58 Order name: EKG; Complete Time: 21:59 [facility] 08/02 21:58 Order name: Cardiac monitoring; Complete Time: 22:45 [facility] 08/02 21:58 Order name: EKG - Nurse/Tech; Complete Time: 22:45 [facility] 08/02 21:58 Order name: IV Saline Lock; Complete Time: 22:19 [facility] 08/02 21:58 Order name: Labs collected and sent; Complete Time: 22:19 [facility] 08/02 21:58 Order name: O2 Per Protocol; Complete Time: 22:20 [facility] 08/02 21:58 Order name: O2 Sat Monitoring; Complete Time: 22:20 [facility] EC:24 Rate is 94 beats/min. Rhythm is regular. QRS [place] is Normal. [place] interval is normal. QRS kirill interval is normal at 408 msec. QT interval is normal. No Q waves. T waves are Normal in leads II, III, aVF, V4, V5, V6. Clinical impression: NSR w/ Non-specific ST/T Changes and No evidence of ischemia. Interpreted by me. Reviewed by me. Administered Medications: Discontinued: NS 0.9% 250 ml IV at bolus once Discontinued: Magnesium Sulfate 1 grams IVPB once over 1 hrs 22:19 Drug: NS 0.9% 250 ml Route: IV; Rate: bolus; Site: right antecubital; 8 22:19 Drug: NS 0.9% 1000 ml Route: IV; Rate: 75 ml/hr; Site: right antecubital; jm8 22:19 Drug: Pepcid (famotidine) 20 mg Route: IVP; Site: right antecubital; 8 23:22 Follow up: Response: No adverse reaction 11 14:19 Drug: Zofran (Ondansetron) 4 mg Route: IVP; Site: right antecubital; jm8 23:22 Follow up: Response: No adverse reaction; Nausea is decreased 08/03 00:29 Drug: Magnesium Sulfate 1 grams Route: IVPB; Infused Over: 1 hrs; Site: right [facility] antecubital; 02:26 Follow up: Response: No adverse reaction [facility] 00:30 Drug: Potassium Chloride 20 mEq Route: IV; Rate: per protocol; Site: right antecubital; [facility] Disposition: 08/03/20 00:09 Hospitalization ordered by Gerardo Serna for Inpatient Admission. Preliminary diagnosis are Acute kidney failure, unspecified - on PD, Hypokalemia, Hypomagnesemia, Volume depletion, Type 2 diabetes mellitus, Parkinson's disease, Dysphagia, Anemia, unspecified. - Bed requested for Telemetry/MedSurg (Inpatient). - Status is Inpatient Admission. [facility] - Condition is Fair. - Problem is new. - Symptoms have improved. Signatures: Dispatcher [employer] EDDC Leidy Dickson RN RN mw Anderson, Corey, MD MD cha Attema, Lee, [employer]C [employer]-Cla1 Elida Burger RN RN ca1 Malcaba, Joseph, RN RN 8 Corrections: (The following items were deleted from the chart) 08/02 22:37 21:59 CORONAVIRUS+MR.LAB.BRZ ordered. [facility] 08/03 00:32 00:09 Hospitalization Ordered by Gerardo Serna MD for Inpatient Admission. Preliminary diagnosis is Acute kidney failure, unspecified - on PD; Hypokalemia; Hypomagnesemia; Volume depletion; Type 2 diabetes mellitus; Parkinson's disease; Dysphagia; Anemia, unspecified. Bed requested for Telemetry/MedSurg (Inpatient). Status is Inpatient Admission. Condition is Fair. Problem is new. Symptoms have improved. [facility] 02:26 00:32 08/03/2020 00:09 Hospitalization Ordered by Gerardo Serna MD for Inpatient [facility] Admission. Preliminary diagnosis is Acute kidney failure, unspecified - on PD; Hypokalemia; Hypomagnesemia; Volume depletion; Type 2 diabetes mellitus; Parkinson's disease; Dysphagia; Anemia, unspecified. Bed requested for Telemetry/MedSurg (Inpatient). Status is Inpatient Admission. Condition is Fair. Problem is new. Symptoms have improved. mw
--- NOTE | 2020-08-03 00:09 | ER ---
Nurse's Notes [facility] Name: Maki Tabares Age: 55 yrs Sex: Female : 1965 Arrival Date: 08/02/2020 Time: 20:19 Bed 16 Private MD: Diagnosis: Acute kidney failure, unspecified-on PD;Hypokalemia;Hypomagnesemia;Volume depletion;Type 2 diabetes mellitus;Parkinson's disease;Dysphagia;Anemia, unspecified Presentation: 08/02 21:01 Chief complaint: Sister states, "she's got Parkinson's and in the last 4 days, she has ca1 not been eating, she has no appetite, sometimes she said she's having trouble swallowing, she also has been vomiting off and on for over 2 weeks. Coronavirus screen: Client denies travel out of the [place] in the last 14 days. vomiting. Client presents with at least one sign or symptom that may indicate coronavirus-19. Standard/surgical mask placed on the client. Provider contacted for isolation considerations. Ebola Screen: Patient negative for fever greater than or equal to 101.5 degrees Fahrenheit, and additional compatible Ebola Virus Disease symptoms Patient denies exposure to infectious person. Patient denies travel to an Ebola-affected area in the 21 days before illness onset. No symptoms or risks identified at this time. Initial Sepsis Screen: Does the patient meet any 2 criteria? No. Patient's initial sepsis screen is negative. Does the patient have a suspected source of infection? No. Patient's initial sepsis screen is negative. Risk Assessment: Do you want to hurt yourself or someone else? Patient reports no desire to harm self or others. Onset of symptoms was August 02, 2020. 21:01 Method Of Arrival: Wheelchair ca1 21:01 Method Of Arrival: Wheelchair ca1 21:01 Acuity: TAVIA 3 ca1 Triage Assessment: 22:23 GI: Reports lower abdominal pain, upper abdominal pain, diarrhea, intolerance of jm8 fluids, intolerance of food, nausea, vomiting. Historical: - Allergies: 21:07 SHELLFISH; ca1 - PMHx: 21:07 Diabetes - NIDDM; Dialysis; peritoneal; Hyperlipidemia; Hypertension; Parkinsons; ca1 - PSHx: 21:07 Hysterectomy; arm surgery; Knee surgery; breast reduction; ca1 - Immunization history:: Client reports receiving the 2nd dose of the Covid vaccine, Client reports receiving the 1st dose of the Covid vaccine, Flu vaccine is up to date. - Social history:: Smoking status: Patient denies any tobacco usage or history of. Screenin:22 Abuse screen: Denies threats or abuse. Denies injuries from another. Nutritional jm8 screening: No deficits noted. Tuberculosis screening: No symptoms or risk factors identified. Fall Risk Assessment: 22:20 General: Appears in no apparent distress. comfortable, Behavior is calm, cooperative, jm8 appropriate for age. Pain: Complains of pain in abdomen Pain currently is 5 out of 10 on a pain scale. Quality of pain is described as crampy, Pain began 4 days ago Also complains of decreased appetite, nausea. Neuro: No deficits noted. Level of Consciousness is awake, alert, obeys commands, Oriented to person, place, time. Cardiovascular: No deficits noted. Respiratory: No deficits noted. GI: Parent/caregiver reports the patient having diarrhea, intolerance of food, intolerance of fluids, nausea, vomiting, pain, since 4 days ago. GI: Abdomen is round Peritoneal dialysis catheter capped. : No deficits noted. EENT: No deficits noted. Derm: No deficits noted. Derm: Skin is intact, is healthy with good turgor, Skin is pink, warm \\T\\ dry. Musculoskeletal: No deficits noted. 23:51 Reassessment: Carla-sister . jm8 Vital Signs: 21:01 BP 127 / 56; Pulse 100; Resp 18 S; Temp 97.6(TE); Pulse Ox 100% on R/A; Weight 73.94 kg ca1 (R); Height 5 ft. 1 in. (154.94 cm); Pain 7/10; 23:00 BP 136 / 67; Pulse 94; Resp 16; Pulse Ox 100% on R/A; jm8 08/03 01:19 BP 135 / 74; Pulse 93; Resp 16; Pulse Ox 100% on R/A; 8 08/02 21:01 Body Mass Index 30.80 (73.94 kg, 154.94 cm) ca1 ED Course: 08/02 20:19 Patient arrived in ED. am4 21:05 Triage completed. ca1 21:07 Arm band placed on right wrist. ca1 21:24 Mannie Carbajal MD is Attending Physician. [facility] 22:23 Patient has correct armband on for positive identification. Bed in low position. Call jm8 light in reach. Side rails up X2. Adult w/ patient. 22:23 No provider procedures requiring assistance completed. Inserted saline lock: 20 gauge angel in right antecubital area, using aseptic technique. 22:24 XRAY Chest (1 view) In Process Unspecified. [facility] 08/03 00:06 Gerardo Serna MD is Hospitalizing Provider. [facility] 01:18 Report given to Tiana OCHOA. 8 02:26 Patient admitted, IV remains in place. jm8 Administered Medications: Discontinued: NS 0.9% 250 ml IV at bolus once Discontinued: Magnesium Sulfate 1 grams IVPB once over 1 hrs 08/02 22:19 Drug: NS 0.9% 250 ml Route: IV; Rate: bolus; Site: right antecubital; jm8 22:19 Drug: NS 0.9% 1000 ml Route: IV; Rate: 75 ml/hr; Site: right antecubital; 8 22:19 Drug: Pepcid (famotidine) 20 mg Route: IVP; Site: right antecubital; 8 23:22 Follow up: Response: No adverse reaction [facility] 22:19 Drug: Zofran (Ondansetron) 4 mg Route: IVP; Site: right antecubital; jm8 23:22 Follow up: Response: No adverse reaction; Nausea is decreased [facility] 08/03 00:29 Drug: Magnesium Sulfate 1 grams Route: IVPB; Infused Over: 1 hrs; Site: right 8 antecubital; 02:26 Follow up: Response: No adverse reaction [facility] 00:30 Drug: Potassium Chloride 20 mEq Route: IV; Rate: per protocol; Site: right antecubital; 8 Outcome: 00:09 Decision to Hospitalize by Provider. [facility] 02:25 Admitted to Med/surg accompanied by nurse, via wheelchair, with chart. [facility] 02:25 Condition: good 02:25 Instructed on the need for admit. 02:26 Patient left the ED. jm8 Signatures: Dispatcher [employer] [facility] Mannie Carbajal MD MD cha Acob, Cheryl RN RN Awilda Blackburn Joseph, RN RN jm8
[2020-08-03] MEDS ORDERED: MAGNESIUM SULFATE 1 gm IVPB 1 GM/100 ML BAG IV ONE (00:44)
[2020-08-03] MEDS ORDERED: KCL 20 MEQ/100 mL IVPB 20 MEQ/100 ML BAG IV ONE (00:44)
--- NOTE | 2020-08-03 01:06 | P.HP ---
Certification for Inpatient Patient admitted to: Observation With expected LOS: <2 Midnights Patient will require the following post-hospital care: None Practitioner: I am a practitioner with admitting privileges, knowledge of patient current condition, hospital course, and medical plan of care. Services: Services provided to patient in accordance with Admission requirements found in Title 42 Section 412.3 of the Code of Federal Regulations Patient History Date of Service: 08/03/20 Reason for admission: Dysphagia History of Present Illness: 55-year-old female with history of Parkinson's, ESRD on PD, hypertension, hyperlipidemia presents emergency department for generalized weakness. Patient reports very poor oral intake over the course of the last few weeks drinking only 1 boost per day, patient reports problems with dysphagia which has worsened over the course of the last 1 month, patient previously with speech therapy at home but was discharged. Labs in the emergency department significant for sodium 135, potassium 2.9, chloride 96 creatinine 8.2 GFR 6 magnesium 1.5 albumin 1.4 hemoglobin 8.8 hematocrit 26.1 MCV 88.1. Patient very weak, malnourished. ED provider wishes to admit for further evaluation and management. Allergies crayfish Allergy (Intermediate, Verified 09/24/16 16:36) Anaphylaxis SHELLFISH Allergy (Uncoded 04/08/17 13:56) Unknown Home Medications: Clonidine Patch [Catapres-Tts 3*] 0.3 mg TD EVERY 7TH DAY 10/13/12 Hydralazine [Apresoline*] 25 mg PO DAILY 10/13/12 Lisinopril 40 mg PO DAILY 10/13/12 Metformin HCl [Glucophage*] 1,000 mg PO BID 10/13/12 Pravastatin [Pravachol*] 20 mg PO BEDTIME 10/13/12 Aspirin [Ecotrin 81 MG] 1 tab PO DAILY 09/24/16 Cholecalciferol (Vitamin D3) [Vitamin D 5,000 IU Cap*] 1 cap PO DAILY 09/24/16 Fluoxetine HCl [Prozac] 1 cap PO DAILY 09/24/16 Melatonin 1 tab PO BEDTIME 09/24/16 NIFEdipine [Nifedipine ER] 1 tab PO DAILY 09/24/16 Nifedipine [Nifedipine ER] 1 tab PO DAILY 09/24/16 Potassium Chloride [Klor-Con M10] 1 meq PO DAILY 09/24/16 Suvorexant [Belsomra] 1 tab PO BEDTIME 09/24/16 atenoloL [Atenolol] 1 tab PO DAILY 09/24/16 - Past Medical/Surgical History Diabetic: Yes -: HTN -: Parkinson's -: Depression -: Pseudotumor cerebri -: No evidence of sleep apnea by sleep study -: ESRD/PD -: Anemia -: Hysterectomy -: Tubal -: Breast reduction -: TOTAL KNEE REPLACEMENT Psychosocial/ Personal History: Patient lives alone but has family come to check on her frequently - Family History Father -: Hypertension, Diabetes, Stroke Mother -: Hypertension, Diabetes SISTERS -: Hypertension, Cancer Notes: PHLEBITIS, FEMALE CANCER - Social History Smoking Status: Never smoker Alcohol use: Yes CD- Drugs: No Caffeine use: Yes Place of Residence: Home Review of Systems 10-point ROS is otherwise unremarkable General: Weakness, Malaise, Other (Anorexia) Neurological: Weakness, Other (Dysphagia) Physical Examination - Physical Exam General: Alert, In no apparent distress, Oriented x3 HEENT: Atraumatic, Normocephalic, Mucous membr. moist/pink Neck: Supple Respiratory: Clear to auscultation bilaterally, Diminished Cardiovascular: No edema, Normal S1 S2 Capillary refill: <2 Seconds Gastrointestinal: Normal bowel sounds, Soft and benign Musculoskeletal: No contractures, No erythema, No tenderness Integumentary: No significant lesion, No tenderness/swelling, No erythema Neurological: Normal tone, Sensation intact, Abnormal speech (Speech is soft, slow) - Studies Laboratory Data (last 24 hrs) 08/02/20 23:05: PT 12.9 H, INR 1.12 08/02/20 23:05: Sodium 135 L, Potassium 2.9 L*, BUN 25 H, Creatinine 8.20 H*, Glucose 78, Magnesium 1.5 L, Total Bilirubin 0.3, AST 11 L, ALT 9 L, Alkaline Phosphatase 86, Lipase 53 L 08/02/20 22:20: WBC 10.00, Hgb 8.8 L, Hct 26.1 L, Plt Count 620 H Assessment and Plan - Plan Assessment Dysphagia, anorexia, malnutrition, hypoalbuminemia ESRD on PD Hypomagnesemia, hypokalemia History of DVT on anticoagulant therapy Normocytic Anemia Parkinson's Plan Dysphagia, anorexia, malnutrition, hypoalbuminemia: Patient unable to explain her swallowing, reports that she can swallow pills as long as they are small enough and most liquids but sometimes seems to have more trouble than others. Patient reports drinking only 1 boost per day for the past few weeks, reports very poor appetite. Albumin 1.4. Will have patient evaluated by speech therapy and dietitian for further recommendations. Patient previously was speech therapy, will attempt to have this set up again for her. Continue Eliquis for DVT prophylaxis. ESRD on PD: Will have patient bring her own equipment for peritoneal dialysis. Consult nephrology for additional help. Hypomagnesemia, hypokalemia: Replaced in the emergency department, monitor with daily labs. History of DVT on anticoagulant therapy: Continue Eliquis Normocytic Anemia: Likely anemia chronic disease, iron studies ordered for morning labs. Parkinson's: Appears to be stable, will also have patient evaluated by physical therapy as she does report some gait instability. Discharge Plan: Home Plan to discharge in: 24 Hours - Advance Directives Does patient have a Living Will: No Does patient have a Durable POA for Healthcare: No - Code Status/Comfort Care Code Status Assessed: Yes (Full code) Critical Care: No Time Spent Managing Pts Care (In Minutes): 55
[2020-08-03 02:45] VITALS: BMI 30.8
[2020-08-03] MEDS ORDERED: NA CHLORIDE 0.9% 250 ML ONE (03:40)
[2020-08-03] MEDS ORDERED: ONDANSETRON 4 MG/2 ML VIAL IV PRN (04:00)
[2020-08-03 05:36] LABS: Absolute Lymphocytes (CBC) 2.2 K/uL (0.7-4.9); Basophils % 1.1 % (0-1.3); Lymphocytes % 22.8 % (15.3-44.8); MPV 7.9 fL (7.6-11.3); RBC Red Blood Cell Count 2.58 M/uL (3.86-4.86)
[2020-08-03 06:12] LABS: Albumin 1.2 g/dL (3.4-5.0); Bilirubin Total 0.3 mg/dL (0.2-1.0); Ferritin 802.9 ng/mL (8-388); Potassium 3.8 mmol/L (3.5-5.1); Protein, Total 4.9 g/dL (6.4-8.2); Thyroid Stimulating Hormone 1.1 uIU/mL (0.360-3.740)
[2020-08-03] MEDS: INSULIN -REGULAR HUMAN 50 UNIT/0.5 ML ML SQ SCH ×4 (07:30→21:39)
--- NOTE | 2020-08-03 07:49 | RAD REPORT ---
EXAM DESCRIPTION: Eliud Single View08/02/2020 10:24 pm CLINICAL HISTORY: Chest pain COMPARISON: 2019 FINDINGS: The lungs appear clear of acute infiltrate. The heart is normal size. Relatively old righ t fracture IMPRESSION: No acute abnormalities displayed
[2020-08-03 09:31] LABS: Hematocrit 24.1 % (36.0-45.0)
[2020-08-03] MEDS ORDERED: D5 0.45 NS 500 ML IV SCH (10:00)
[2020-08-03] MEDS: APIXABAN 5 MG TABLET PO SCH ×2 (10:12→21:38)
--- NOTE | 2020-08-03 14:52 | P.PN ---
Subjective Date of Service: 08/03/20 Chief Complaint: Dysphagia Subjective: No new changes (no acute events since admission earlier this morning. Pt reports difficulty swallowing breakfast food, states she has been able to drink 1 Boost drink/day. has been on several different parkinson medications over the last several months. currently on neupro patch) Review of Systems 10-point ROS is otherwise unremarkable Physical Examination - Vital Signs Temperature: 97.7 F Blood Pressure: 138/67 Pulse: 90 Respirations: 18 Pulse Ox (%): 100 - Studies Laboratory Data (last 24 hrs) 08/02/20 23:05: PT 12.9 H, INR 1.12 08/02/20 23:05: Sodium 135 L, Potassium 2.9 L*, BUN 25 H, Creatinine 8.20 H*, Glucose 78, Magnesium 1.5 L, Total Bilirubin 0.3, AST 11 L, ALT 9 L, Alkaline Phosphatase 86, Lipase 53 L 08/02/20 22:20: WBC 10.00, Hgb 8.8 L, Hct 26.1 L, Plt Count 620 H Assessment & Plan Physician Review Additional Text: Physical Exam General: AAOx3, NAD, slow speech HEENT: masked facies Respiratory: Clear to auscultation bilaterally, nonnlabored on RA Cardiovascular: regular rate/rhythm, Normal S1 S2 Abd: soft, nontender, non-distended MSK: no contractures, no erythema, no tenderness Integumentary: No significant lesion, No erythema Neurological: Sensation intact, masked facies, slow/soft speech, str 4/5 bilaterally Problem List Dysphagia, anorexia, acute malnutrition, hypoalbuminemia ESRD on PD Hypomagnesemia, hypokalemia History of DVT on anticoagulant therapy acute on chronic normocytic Anemia (of chronic disease) Parkinson's -symptoms seem to be related to her parkinson's. She reports "freezing up" often, and has been tried on different medications due to lack of benefit and/or side effects -speech therapy consulted, MBS ordered -neuro consulted, will obtain MRI to r/o any brainstem stroke/involvement -pt reports she has appointment with a specialist in ~2 weeks to further review her parkinson medications -Hgb decreased today, likely due to IVF and blood draws, no evidence of bleeding, has anemia of chronic disease -nephrology consulted to assist with electrolytes / ESRD - pt currently on peritoneal dialysis -continue eliquis, pt with h/o DVT -PT consulted as well VTE: federica Code: full Dispo: anticipate dc in ~24-48hrs, pt reports has several family members that assist in her care at home Time Spent Managing Pts Care (In Minutes): 35
--- NOTE | 2020-08-03 16:09 | CON ---
Date of Consultation: 08/03/2020 History Of Present Illness: The patient is a 55-year-old female with end-stage renal disease, on per itoneal dialysis. She presented to the hospital feeling significantly weak, unable to take much p.o. intake. She has not been eating and drinking well. The patient has been on Paxil. Has been tried on Remeron. States that she just felt so weak she could not walk much and therefore came in the hosp ital. The patient has stable blood pressure. Potassium has been recently a little bit on the lower side. Magnesium and potassium both were slightly low on admission yesterday, but now have stabilized . The patient did not have peritoneal dialysis last night, but has her machine coming over today and states she will be able to do her peritoneal dialysis today. Her oxygenation is good. She does not look volume overloaded. She seems to be comfortable, able to talk to me in full sentences. She see ms to be reasonable, alert and able to answer questions appropriately. She has a history of Parkinso n's disease diagnosed about 4 months ago. The patient states that she was following up with a neurol ogist in [place] and has been recently given a consultation with a neurologist who specializes in Pa rkinson's disease in the [facility] and she will be following with them in early . Her appointment was initially in July, but has been moved to August. The patient states that she has not been eating and drinking that well, but she is clear that she is not depressed and would not want any further medications for that. She states she has been on Paxil and has been tolerating that well. She may have some mild dysphagia, but does not does not claim to have any swallowing issues. In fact, she is saying that if she is able to get some Boost, she will be happy to drink it. We hav e Nepro available at the hospital. The patient does not want Nepro and sates she will get her own Murali ost. She is asking her daughter to bring back. Past Medical History: The patient with history of Parkinson's, The patient with history of diabetes mellitus; end-stage renal disease, on peritoneal dialysis; hypertension; hyperlipidemia; question poo r p.o. intake; history of hypokalemia and hypomagnesemia that seems to be stable number currently. Allergies: TO CRAYFISH, SHELLFISH. Surgical History: Hysterectomy, tubal ligation, breast reduction surgery, total knee replacement. Family History: Father with history of hypertension, diabetes, stroke. Mother with hypertension, di abetes. Social History: The patient recently graduated getting associate's degree from a local college. She states her degree was in interdisciplinary studies. She does not drink alcohol, use any drugs or sm james cigarettes. Physical Examination: Vital Signs: On evaluation of her vitals, patient is alert, awake, able to answer questions appropri ately. She is afebrile. Her pulse is around 80 to 90 on my exam. Her blood pressure has been betwe en 130 to 160. Her last blood pressure was 140/69. O2 sats are 100% on room air. Lungs: Clear to auscultation. Abdomen: Soft. Skin: Dry. Extremities: She has no swelling in her lower extremities. No pitting edema and she is breathing co mfortably on room air with 100% O2 saturation. Assessment And Plan: The patient with end-stage renal disease, presents with some weakness, history of Parkinson's disease, having difficulty eating and drinking recently. Denies any depression. Dimitry es wanting to take any SSRIs right now. She states she is already on Paxil. We will continue that. The patient is looking comfortable on my exam, currently wanting to take p.o. intake. We will put h er on Boost or Nepro whatever is available at the hospital twice a day. The patient states that she is going to try to get Boost from her home as she prefers to drink that as opposed to Nepro. Discuss ed with her about balanced diet. Also discussed with the peritoneal dialysis nurse regarding her PD prescription and we will monitor her outpatient if she is discharged hopefully within the next 24 joseph rs, if clinically stable. She will need further followup for Parkinson's. She stated that she cheli pino has an appointment with the specialist and she will to that. her PD prescription is as follows. She takes about 2200 cc exchanges, 4 exchanges over 9 hours, last fill and then a midday fill. The m fill is with 2000 cc. Her computer on the PD machine is already programmed to do this for her. The patient states that she knows how to operate that without any difficulty. She will go ahead an d get her machine from home and if she stays here tonight, we will be doing PD at night with this pre scription. if there are any concerns or questions, the patient has number for the peritoneal dialysi s nurse to call her. She has already discussed with her this morning. The PD nurse's name is Margie and the phone number for Margie is [phone]. In summary, peritoneal dialysis today as the patient takes at home. Prescription discussed with patient. The patient is slightly volume depleted, not e ating and drinking well. We will need to monitor this with evaluation of her Parkinson's. She has a lready has an appointment with a specialist. Continue with Paxil. Once the patient is discharged wi ll need further clinic followup as well. For now, we will give her D5 half-normal saline for about 5 00 cc to help her with repletion of her fluids and some dextrose. Recommended to her to drink Boost or Nepro. She can tolerate that well up to 2 to a day to help replenish her calories and nutrients. /JYOTI Voice ID: [id number] Report ID: [id number]
--- NOTE | 2020-08-03 17:43 | EKG ---
Test Date: 2020-08-02 Test Time: 22:34:02 Resource Management Specialist: ISSA MEASUREMENT RESULTS: Intervals: Rate: 94 OK: 154 QRSD: 88 QT: 408 QTc: 510 [place]: P: 62 OK: 154 QRS: 24 T: 34 INTERPRETIVE STATEMENTS: Normal sinus rhythm Cannot rule out Anterior infarct, age undetermined Prolonged QT Abnormal ECG Compared to ECG 08/18/2018 14:00:41 Prolonged QT interval now present Myocardial infarct finding still present Electronically Signed On 08-03-20 17:40:14 CDT by Ja Hudson
[2020-08-03] MEDS: DOCUSATE NA 100 MG CAP PO SCH (18:56)
--- NOTE | 2020-08-03 21:39 | CON ---
Reason For Consultation: Consultation called because of dysphagia and Parkinson disease. History Of Present Illness: Ms. Tabares is a 55-year-old right-handed patient with end-stage renal disease on hemodialysis, hypertension, dyslipidemia, and Parkinson disease, who come s to [facility] with 2 to 3 weeks of progressive weakness and dysphagia. Her Parkinson medi cation reportedly caused upset stomach, nausea when swallowed and she was therefore switched to a tra nsdermal medication called Neupro. Since that change, she has had more stiffness, difficulty initiat ing movement including her speaking and swallowing. At [facility], she was admitted for fur ther workup on August 02. Blood work revealed a very low hemoglobin actually after hydration of 7.5, an d she does have hemodialysis schedule and will be addressed by the Renal Service. Otherwise, white b lood cell count was negative for infection. Her creatinine of 8.2 will be addressed with her dialysi s. She did have hypokalemia at 2.9 and low calcium of 7.3, low magnesium of 1.5. COVID testing was negative. She was ambulated with physical therapy and was able to walk 250 feet, but required help and used a r olling walker and she had some contact guard to standby assistance. Medications: At home, clonidine 0.3 mg every 7th day, Apresoline 25 mg daily, lisinopril 40 mg daily , metformin 1000 mg twice daily, Pravachol 20 mg at bedtime, aspirin 81 mg daily, vitamin D3 5000 int ernational units daily, Prozac 1 daily, melatonin 3 or 5 mg at night, nifedipine daily as needed, pot assium 10 mEq daily, atenolol daily. Past Medical History: Hypertension, Parkinson disease, depression, pseudotumor cerebri, end-stage re nal disease on hemodialysis, chronic anemia. Past Surgical History: Hysterectomy, tubal ligation, breast reduction, total knee replacement. Social History: The patient lives alone, but family lives close by. She drinks alcohol and uses caf feinated beverages. Denies smoking. Allergies: CRAYFISH AND SHELLFISH. Family History: Hypertension, diabetes, stroke in father. Hypertension, diabetes in mother. Sister with cancer, phlebitis, and hypertension. Review of Systems: On 10-point review of systems, diffuse weakness, dysphagia, abdominal pain with nausea, likely second diana to her Parkinson's medication. Otherwise, no fevers, chills, myalgias, or arthralgias, and no ot her positives aside from mild depression on a 10-point systems review. Physical Examination: Vital Signs: Blood pressure 143/78, pulse 90 to 108, respiratory rate 16 to 20, temperature 97.7, ox ygen saturation 100% on room air. Weight 163 pounds, height 5 feet 1 inch, BMI 30.8. GENERAL: Ms. Tabares is resting in bed. She is in no acute distress. HEENT: She is normocephalic, atraumatic. Sclerae anicteric. Oropharynx is moist and pink. Neck: Supple. Chest: Clear. Heart: Regular. Extremities: No significant cyanosis, clubbing, or edema. Neurological: She has very poor labial, lingual, and guttural sounds, but she communicates well with out an aphasia. She has diffuse mild weakness of all facial muscles and a masklike appearance to her face with decreased blink rate. Otherwise, face is symmetric. Motor examination, she has increased tone in the upper and lower extremities with mild cogwheeling bilaterally, but strength is 5/5 in th e upper and lower extremities. Coordination is slow, but intact in the upper and lower extremities. Reflexes symmetric, 1+ in the upper lower extremities. With gait, she does require contact guard as sistance with good stance and stride. Assessment: Ms. Tabares is a 55-year-old patient, who was "off Parkinson's medications" since tc tristan to Neupro transdermal. She may benefit from Kynmobi and that is a sublingual form of apomorphin e for Parkinson disease. This was discussed with the hospitalist. The medication may not be on form ulary and samples from the office may be brought in for the patient. She should be aggressively participating in physical and speech therapy and may have to consider plac ement of a PEG tube for feeding until the patient can be on an appropriate regimen for her Parkinson disease. Otherwise, she may be discharged from the hospital, especially if her swallowing is improve d as she actually has a visit scheduled with her neurologist in [place], who is following her for Par kinson disease and that should be somewhere between now and next week. KEVIN/MARYL Voice ID: [id number] Report ID: [id number]
[2020-08-04 05:48] LABS: Absolute Lymphocytes (CBC) 1.6 K/uL (0.7-4.9); Basophils % 0.8 % (0-1.3); Hematocrit 22.5 % (36.0-45.0); Lymphocytes % 17.8 % (15.3-44.8); MPV 7.6 fL (7.6-11.3); RBC Red Blood Cell Count 2.52 M/uL (3.86-4.86)
[2020-08-04 06:11] LABS: Albumin 1.3 g/dL (3.4-5.0); Bilirubin Total 0.3 mg/dL (0.2-1.0); Magnesium 2.5 mg/dL (1.8-2.4); Potassium 3.8 mmol/L (3.5-5.1)
[2020-08-04] MEDS: INSULIN -REGULAR HUMAN 50 UNIT/0.5 ML ML SQ SCH ×4 (07:30→20:14)
--- NOTE | 2020-08-04 07:57 | RAD REPORT ---
EXAM DESCRIPTION: MRI - Brain Wo Cont - 08/03/2020 6:35 pm CLINICAL HISTORY: r/o stroke, difficulty swallowing, difficulty walking, Parkinson's disease, hypert ension, anemia, end-stage renal disease with peritoneal dialysis COMPARISON: Ct Stroke Brain Wo Cont dated 08/18/2018 TECHNIQUE: Sagittal T1-weighted images were obtained along with axial PD, heavily T2-weighted and T2 -FLAIR images. Axial DWI and ADC mapping sequences were also obtained along with coronal heavily T2-w eighted images. FINDINGS: Diffusion-weighted imaging shows no acute infarction. Symmetric hypointense DWI signal is seen within the bilateral lentiform nuclei. There is corresponding hyperintense signal on ADC mapping . Heterogeneous proton density and hyperintense T2 signal is present. The lentiform nuclei are mostly hypointense on T2 STIR and show a very pronounced hypointense noncontrast T1 signal pattern. Mild fo r age atrophy changes are present. Ventricles are in proportion. No measurable chronic ischemic isaacs e. No thalamus or brainstem signal abnormalities. Caudate lobe is show normal signal. No internal cap phoebe signal abnormalities present. No extra-axial fluid collections. Bolaños-matter/white matter junction is preserved. Signal voids are s een as a normal finding in the major intracranial vessels. No globe or orbital content abnormality. No sella or supra sella abnormality. Mastoid air cells and paranasal sinuses are clear. The lentiform nucleus signal signal characteristics are abnormal but not specific to a single etiolog y. This is likely some form of metabolic disturbance and may be related to dialysis. Uremic encephalo jennifer and metabolic acidosis can create signal abnormalities similar to what was observed on this exa mination. Extra pontine myelinolysis can also create similar signal abnormalities. Repeat CT head exa mination may be helpful to evaluate for any mineralization or abnormalities of the basal ganglia that have developed since the 2019 comparison. The addition of a GRE or T2*sequence may help with the dif ferential diagnosis. IMPRESSION: No acute infarction changes are present. No mass, edema or shift of midline structures. No intracranial hemorrhage is present. Bilateral symmetric basal ganglia signal abnormalities are present. These are not emergent findings a nd may be related to metabolic disorders seen with dialysis and end-stage renal disease. Follow-up CT Head imaging is suggested to evaluate for any mineralization or basal ganglia changes th at may have occurred since the 2019 study. The addition of an MRI GRE or T2*sequence may help with th e differential diagnosis.
--- NOTE | 2020-08-04 08:51 | P.PN ---
Date of Service: 08/04/20 Vital Signs Temp Pulse Resp BP Pulse Ox 97.5 F 97 H 18 169/79 H 100 08/04/20 04:00 08/04/20 04:00 08/04/20 04:00 08/04/20 04:00 08/04/20 04:00 Medications Acetaminophen (Acetaminophen 500 Mg Tab) 500 mg PO Q4HP PRN PRN Reason: Pain scale 2-4 (Mild) Apixaban (Apixaban 5 Mg Tablet) 5 mg PO BID [facility] Last Admin: 08/03/20 21:38 Dose: 5 mg Documented by: Docusate Sodium (Docusate Na 100 Mg Cap) 100 mg PO DAILY [facility] Last Admin: 08/03/20 18:56 Dose: 100 mg Documented by: Insulin Human Regular (Insulin -Regular Human 50 Unit/0.5 Ml Ml) 0 unit SQ ACHS [facility]; Protocol Last Admin: 08/03/20 21:39 Dose: 4 unit Documented by: Metoclopramide HCl (Metoclopramide 5 Mg Tab) 5 mg PO DAILY [facility] Ondansetron HCl (Ondansetron 4 Mg/2 Ml Vial) 4 mg IV Q6HP PRN PRN Reason: NAUSEA / VOMITING Paroxetine HCl (Paroxetine Hcl 10 Mg Tab) 20 mg PO DAILY [facility] Sodium Chloride (Flush Normal Saline 10 Ml) 10 ml IV BID [facility] Last Admin: 08/03/20 21:00 Dose: 10 ml Documented by: Assessment/ Plan: Nephrology Feeling better today Persistent weakness No acute events overnight Vitals, medications, blood work and imaging reviewed in the chart. NAD. MMM. Neck supple. CTA. RRR. Soft Abd. No C/C. LE Edema 1+. No rash. AAO. ESRD -Continue PD as ordered. Hyponatremia Chronic hypotension -Give IV Albumin today Diastolic CHF/ Edema -Low sodium diet DM II with CKD -RISS Severe Malnutrition -Speech eval pending for dysphagia -Advance nutrition with protein supplementation as tolerated -Start MVI once tolerating PO Anemia in CKD -Give Retacrit X1 FEROZ/ Secondary HyperPTH with hypocalcemia -Start Vitamin D Case reviewed with Dr. Serna EXAM DESCRIPTION: Eliud Single View08/02/2020 10:24 pm CLINICAL HISTORY: Chest pain COMPARISON: 2019 FINDINGS: The lungs appear clear of acute infiltrate. The heart is normal size. Relatively old right fracture IMPRESSION: No acute abnormalities displayed
[2020-08-04] MEDS ORDERED: EPOETIN ALFA-EPBX 10,000 UNIT/ML VIAL SQ ONE (09:00)
[2020-08-04] MEDS: VITAMIN D 5,000 UNIT CAP PO SCH (09:00)
[2020-08-04] MEDS: CALCITROL 0.25 MCG CAP PO SCH (09:00)
[2020-08-04] MEDS: DOCUSATE NA 100 MG CAP PO SCH ×3 (09:00→20:13)
[2020-08-04] MEDS: METOCLOPRAMIDE 5 MG TAB PO SCH (09:00)
[2020-08-04] MEDS: APIXABAN 5 MG TABLET PO SCH ×2 (09:00→20:14)
[2020-08-04] MEDS: PARoxetine HCL 10 MG TAB PO SCH (09:00)
[2020-08-04] MEDS: MULTIVITAMIN TAB PO SCH (09:00)
[2020-08-04] MEDS: ALBUMIN HUMAN 25% 200 ML IV SCH ×2 (10:16→16:00)
--- NOTE | 2020-08-04 11:27 | RAD REPORT ---
EXAM DESCRIPTION: CT - Head Brain Wo Cont - 08/04/2020 9:21 am CLINICAL HISTORY: F/U TO MRI COMPARISON: Ct Stroke Brain Wo Cont dated 08/18/2018 TECHNIQUE: Axial 5 mm thick images of the head were obtained without IV contrast. All CT scans are performed using dose optimization technique as appropriate and may include automated exposure control or mA/KV adjustment according to patient size. FINDINGS: No intracranial hemorrhage present. No mass, edema or shift midline structures. Since the 2019 study, the patient has developed pronounced diminished attenuation in the bilateral putamen and globus pallidus. Attenuation value is less than 20 Hounsfield units. There are 2 punctate calcific de nsities in the left putamin. No thalamus or caudate attenuation abnormality. No other attenuation abn ormalities. Volume loss has progressed from the prior examination. Ventricles are in proportion to th e volume loss. No cortical edema or sulcal effacement. The symmetric bilateral lentiform nucleus attenuation abnormalities, new since 2019, are nonspecific. A dialysis related metabolic abnormality is possible. Hypertensive, hepatic and uremic encephalopath ies can give MR and CT findings that are similar to what is seen on this patient's exams. A yet diagn osed toxin exposure is possible. IMPRESSION: No hemorrhage or emergent intracranial abnormality identifiable. Since 2019, patient has developed significant decreased attenuation in a symmetric pattern within eac h lentiform nucleus (putamin and globus pallidus). These areas have corresponding signal abnormaliti es on the MRI study. Findings remain nonspecific. A dialysis related metabolic disorder is suspected. Hypertensive, hepati c an uremic encephalopathy can present in a similar but not exact pattern. Additional consultation is being sought and an addendum may be issued to the MRI or CT report.
[2020-08-04 12:21] LABS: Appearance TURBID (CLEAR); Body Fluid Source PERITONEAL; Color of fluid Colorless (COLORLESS)
[2020-08-04 12:35] LABS: Body Fluid WBC 5199 /mm^3
--- NOTE | 2020-08-04 15:14 | RAD REPORT ---
EXAM DESCRIPTION: RAD - Barium Swallow Modified - 08/04/2020 2:56 pm CLINICAL HISTORY: Parkinson/coughing FINDINGS: Osteophytes C6-C7, narrowing pharyngeal space. barium tablet got held in upper esophagus, cleared with 2 bites of pudding. No aspiration or penetration seen with any consistencies tested in the swallow study. 3:10 fluoro time. Twenty-seven fluoroscopic spot images obtained
--- NOTE | 2020-08-04 15:18 | P.PN ---
Subjective Date of Service: 08/04/20 Chief Complaint: Dysphagia Subjective: Improving (feeling better, more energy/strength, still with "freezing" at times, worse with eating. awaiting speech eval. denies sob, chest pain, abdominal pain) Review of Systems 10-point ROS is otherwise unremarkable Physical Examination - Vital Signs Temperature: 97.2 F Blood Pressure: 147/71 Pulse: 98 Respirations: 16 Pulse Ox (%): 100 Assessment & Plan Physician Review Additional Text: Physical Exam General: AAOx3, NAD, slow speech HEENT: masked facies Respiratory: Clear to auscultation bilaterally, nonnlabored on RA Cardiovascular: regular rate/rhythm, Normal S1 S2 Abd: soft, nontender, non-distended MSK: no contractures, no erythema, no tenderness Integumentary: No significant lesion, No erythema Neurological: Sensation intact, masked facies, slow/soft speech, str 5/5 bilaterally Problem List Dysphagia, anorexia, acute malnutrition, hypoalbuminemia ESRD on PD Hypomagnesemia, hypokalemia History of DVT on anticoagulant therapy acute on chronic normocytic Anemia (of chronic disease) Parkinson's -symptoms seem to be related to her parkinson's. She reports "freezing up" often, and has been tried on different medications due to lack of benefit and/or side effects -speech therapy consulted, MBS ordered for today -neuro consulted, MRI and CT done with no acute results, however showed significant decreased attenuation in a symmetric pattern within each lentiform nucleus, with corresponding signal abnormalities on the MRI -pt reports she has appointment with a specialist in ~2 weeks to further review her parkinson medications -Hgb stable, no evidence of bleeding, likely from chronic disease, to receive retacrit -nephrology consulted to assist with electrolytes / ESRD - pt currently on peritoneal dialysis -continue federica pt with h/o DVT, no evidence of bleed -PT consulted VTE: eliquis Code: full Dispo: anticipate dc in ~24hrs, pt reports has several family members that assist in her care at home Time Spent Managing Pts Care (In Minutes): 35
[2020-08-04] MEDS ORDERED: CEFTRIAXONE 2,000 MG in NA CHLORIDE 0.9% 100 ML IV SCH (15:30)
[2020-08-04] MEDS: CEFTRIAXONE/SWI 2gm 2 GM/20 ML SYR IVP SCH (16:54)
[2020-08-04] MEDS: ACETAMINOPHEN 500 MG TAB PO PRN (20:13)
[2020-08-04] MEDS ORDERED: VANCOMYCIN 1 GM in NA CHLORIDE 0.9% 500 ML IVPB ONE (21:15)
[2020-08-04] MEDS ORDERED: VANCOMYCIN 1.5 GM in NA CHLORIDE 0.9% 500 ML IVPB ONE (22:00)
[2020-08-04] MEDS ORDERED: NA CHLORIDE 0.9% 500 ML ONE (23:40)
[2020-08-04] MEDS ORDERED: VANCOMYCIN 1 GM/VIAL ONE (23:40)
[2020-08-05 06:00] LABS: Absolute Lymphocytes (CBC) 1.6 K/uL (0.7-4.9); Basophils % 0.8 % (0-1.3); Hematocrit 18.5 % (36.0-45.0); Lymphocytes % 21.1 % (15.3-44.8); MPV 7.4 fL (7.6-11.3)
[2020-08-05 06:14] LABS: AST/SGOT 6 U/L (15-37); Albumin 1.7 g/dL (3.4-5.0); Alkaline Phosphatase 64 U/L (45-117); BUN Blood Urea Nitrogen 34 mg/dL (7-18); Bicarbonate 29 mmol/L (21-32); Bilirubin Total 0.3 mg/dL (0.2-1.0); Glucose Level 78 mg/dL (74-106); Phosphorus 4.5 mg/dL (2.5-4.9); Potassium 3.8 mmol/L (3.5-5.1); Protein, Total 4.6 g/dL (6.4-8.2); Sodium Level 134 mmol/L (136-145); Uric Acid 4.7 mg/dL (2.6-6.0)
[2020-08-05 06:15] LABS: ALT/SGPT < 6 U/L (12-78)
[2020-08-05] MEDS: INSULIN -REGULAR HUMAN 50 UNIT/0.5 ML ML SQ SCH ×4 (07:30→20:13)
[2020-08-05] MEDS: CEFTRIAXONE/SWI 2gm 2 GM/20 ML SYR IVP SCH (08:18)
[2020-08-05] MEDS: CALCITROL 0.25 MCG CAP PO SCH (08:19)
[2020-08-05] MEDS: PARoxetine HCL 10 MG TAB PO SCH (08:20)
[2020-08-05] MEDS: METOCLOPRAMIDE 5 MG TAB PO SCH (08:21)
[2020-08-05] MEDS: APIXABAN 5 MG TABLET PO SCH ×2 (08:21→20:04)
[2020-08-05] MEDS: MULTIVITAMIN TAB PO SCH (08:21)
[2020-08-05] MEDS: VITAMIN D 5,000 UNIT CAP PO SCH (08:22)
[2020-08-05] MEDS: ROTIGOTINE TOP SCH (09:00)
[2020-08-05] MEDS: ACETAMINOPHEN 500 MG TAB PO PRN (09:32)
--- NOTE | 2020-08-05 10:10 | P.PN ---
Date of Service: 08/05/20 Vital Signs Temp Pulse Resp BP Pulse Ox 97.5 F 97 H 18 149/72 H 98 08/05/20 08:00 08/05/20 08:00 08/05/20 08:00 08/05/20 08:00 08/05/20 08:00 Medications Acetaminophen (Acetaminophen 500 Mg Tab) 500 mg PO Q4HP PRN PRN Reason: Pain scale 2-4 (Mild) Last Admin: 08/05/20 09:32 Dose: 500 mg Documented by: Apixaban (Apixaban 5 Mg Tablet) 5 mg PO BID [facility] Last Admin: 08/05/20 08:21 Dose: 5 mg Documented by: Calcitriol (Calcitrol 0.25 Mcg Cap) 0.5 mcg PO DAILY [facility] Last Admin: 08/05/20 08:19 Dose: 0.5 mcg Documented by: Cefepime HCl (Cefepime 2 Gm Vial) 2 gm IV Q48H [facility]; Protocol Cholecalciferol (Vitamin D 5,000 Unit Cap) 5,000 unit PO DAILY [facility] Last Admin: 08/05/20 08:22 Dose: 5,000 unit Documented by: Docusate Sodium (Docusate Na 100 Mg Cap) 100 mg PO DAILY [facility] Last Admin: 08/04/20 20:13 Dose: 100 mg Documented by: Home Med (Rotigotine [Neupro]) 6 mg TD DAILY [facility] Cefepime HCl (Maxipime 2 Gm/20 Ml Swi Ivp) 2 gm in 20 mls @ 240 mls/hr IV Q48H [facility] Albumin Human (Albumin 25%) 200 mls @ 100 mls/hr IV Q8H [facility] Stop: 08/05/20 20:59 Insulin Human Regular (Insulin -Regular Human 50 Unit/0.5 Ml Ml) 0 unit SQ ACHS [facility]; Protocol Last Admin: 08/05/20 07:30 Dose: Not Given Documented by: Metoclopramide HCl (Metoclopramide 5 Mg Tab) 5 mg PO DAILY [facility] Last Admin: 08/05/20 08:21 Dose: 5 mg Documented by: Multivitamins/Minerals (Multivitamin Tab) 1 tab PO DAILY [facility] Last Admin: 08/05/20 08:21 Dose: 1 tab Documented by: Ondansetron HCl (Ondansetron 4 Mg/2 Ml Vial) 4 mg IV Q6HP PRN PRN Reason: NAUSEA / VOMITING Paroxetine HCl (Paroxetine Hcl 10 Mg Tab) 20 mg PO DAILY [facility] Last Admin: 08/05/20 08:20 Dose: 20 mg Documented by: Sodium Chloride (Flush Normal Saline 10 Ml) 10 ml IV BID [facility] Last Admin: 08/05/20 08:21 Dose: 10 ml Documented by: Lab Results (last 24 hrs) 08/04/20 11:06: Miscellaneous Test Cancelled 08/04/20 11:05: Fluid Source Peritoneal, Fluid Color Colorless, Fluid Appearance Turbid H, Fld 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 NAD. MMM. Neck supple. CTA. RRR. Tender Abd. No C/C. LE Edema 1+. No rash. AAO. EXAM DESCRIPTION: Eliud Single View08/02/2020 10:24 pm CLINICAL HISTORY: Chest pain COMPARISON: 2019 FINDINGS: The lungs appear clear of acute infiltrate. The heart is normal size. Relatively old right fracture IMPRESSION: No acute abnormalities displayed ESRD -PD catheter not functioning at this time. -Initiate transfer to a facility with a PD program. Hyponatremia Chronic hypotension -Give IV Albumin again today Diastolic CHF/ Edema -Low sodium diet DM II with CKD -RISS Severe Malnutrition -Advance nutrition with protein supplementation as tolerated -Continue MVI as tolerated Anemia in CKD -Retacrit prn FEROZ/ Secondary HyperPTH with hypocalcemia -Continue Vitamin D Peritonitis -Continue Vancomycin -DC Rocephin and start Cefepime -Follow up cultures Case reviewed with Dr. Serna
[2020-08-05] MEDS ORDERED: NA CHLORIDE 0.9% 250 ML ONE (10:45)
[2020-08-05] MEDS: HYDROCODONE/APAP 5/325 MG TAB PO PRN ×2 (10:57→19:02)
[2020-08-05] MEDS ORDERED: CEFEPIME 2 GM VIAL IV SCH (11:00)
[2020-08-05] MEDS ORDERED: CEFEPIME/SWI 2gm 2 GM/20 ML SYR IV SCH (11:00)
[2020-08-05] MEDS: ALBUMIN HUMAN 25% 200 ML IV SCH ×2 (11:14→18:32)
[2020-08-05] MEDS ORDERED: WATER FOR INJ,STERILE 10 ML IV SCH (18:00)
[2020-08-05] MEDS ORDERED: ALTEPLASE 2 MG/VIAL IV SCH (18:00)
--- NOTE | 2020-08-05 18:06 | P.PN ---
Subjective Date of Service: 08/05/20 Chief Complaint: Dysphagia Subjective: Other (abdominal discomfort overnight. afebrile. PD cath not working. otherwise feeling well. more strength/energy today) Review of Systems 10-point ROS is otherwise unremarkable Physical Examination - Vital Signs Temperature: 97 F Blood Pressure: 116/62 Pulse: 103 Respirations: 18 Pulse Ox (%): 98 - Studies Microbiology Data (last 24 hrs): 08/04/20 11:05 Body Fluid - Peritoneal Fluid Gram Stain - Final Assessment & Plan Physician Review Additional Text: Physical Exam General: AAOx3, NAD, slow speech HEENT: masked facies Respiratory: Clear to auscultation bilaterally, nonnlabored on RA Cardiovascular: regular rate/rhythm, Normal S1 S2 Abd: soft, mild diffuse discomfort with palpation, no rebound MSK: no tenderness Integumentary: No significant lesion, No erythema Neurological: Sensation intact, masked facies, slow/soft speech, str 5/5 bilaterally Problem List Dysphagia, anorexia, acute malnutrition, hypoalbuminemia possible Peritonitis ESRD on PD Hypomagnesemia, hypokalemia History of DVT on anticoagulant therapy acute on chronic normocytic Anemia (of chronic disease) Parkinson's -symptoms seem to be related to her parkinson's. She reports "freezing up" often, and has been tried on different medications due to lack of benefit and/or side effects -speech therapy consulted, MBS done - recommended thin liquids, chopped foods -neuro consulted, MRI and CT done with no acute results, however showed significant decreased attenuation in a symmetric pattern within each lentiform nucleus, with corresponding signal abnormalities on the MRI -may explain why patient suddenly developed parkinson symptoms/features ~2 yrs ago -pt reports she has appointment with a specialist in ~2 weeks to further review her parkinson medications -Hgb decreasd this morning, no obvious bleed, hemoccult ordered, 1u PRBC ordered, receiving retacrit post-transfusion H/H ordered -nephrology consulted to assist with electrolytes / ESRD - pt currently on peritoneal dialysis - however not working. will attempt cathflo -continue eliquis, pt with h/o DVT -cloudy peritoneal fluid, WBC >5k, however PMN<250, now with abd discomfort, afebrile, and stain/culture pending -covering with broad spectrum antibiotics for possible SBP -PT consulted VTE: eliquis Code: full Dispo: discussed with nephrology, trying to transfer patient to facility more capable of dealing with PD complications Time Spent Managing Pts Care (In Minutes): 35
[2020-08-05] MEDS: DOCUSATE NA 100 MG CAP PO SCH (20:06)
[2020-08-06 06:13] LABS: Basophils % 0.6 % (0-1.3); Lymphocytes % 11.1 % (15.3-44.8); MPV 7.5 fL (7.6-11.3)
[2020-08-06 06:42] LABS: AST/SGOT 6 U/L (15-37); Albumin 2.5 g/dL (3.4-5.0); Alkaline Phosphatase 60 U/L (45-117); BUN Blood Urea Nitrogen 38 mg/dL (7-18); Bicarbonate 28 mmol/L (21-32); Bilirubin Total 0.4 mg/dL (0.2-1.0); Glucose Level 72 mg/dL (74-106); Magnesium 2.1 mg/dL (1.8-2.4); Phosphorus 4.6 mg/dL (2.5-4.9); Protein, Total 5.4 g/dL (6.4-8.2); Sodium Level 133 mmol/L (136-145); Uric Acid 4.9 mg/dL (2.6-6.0)
[2020-08-06 06:46] LABS: ALT/SGPT < 6 U/L (12-78)
[2020-08-06] MEDS: INSULIN -REGULAR HUMAN 50 UNIT/0.5 ML ML SQ SCH ×4 (07:30→20:04)
[2020-08-06] MEDS: VITAMIN D 5,000 UNIT CAP PO SCH (08:56)
[2020-08-06] MEDS: CALCITROL 0.25 MCG CAP PO SCH (08:56)
[2020-08-06] MEDS: APIXABAN 5 MG TABLET PO SCH ×2 (08:56→20:04)
[2020-08-06] MEDS: METOCLOPRAMIDE 5 MG TAB PO SCH (08:56)
[2020-08-06] MEDS: PARoxetine HCL 10 MG TAB PO SCH (08:57)
[2020-08-06] MEDS: DOCUSATE NA 100 MG CAP PO SCH ×2 (08:57→20:02)
[2020-08-06] MEDS: MULTIVITAMIN TAB PO SCH (08:57)
[2020-08-06] MEDS: ROTIGOTINE TOP SCH (08:58)
[2020-08-06 09:18] VITALS: O2SAT 98
--- NOTE | 2020-08-06 12:05 | RAD REPORT ---
EXAM DESCRIPTION: RAD - Abdomen 1 View (KUB) - 08/06/2020 11:30 am CLINICAL HISTORY: perotioneal dialysis access check Pain COMPARISON: Barium Swallow Modified dated 08/04/2020 FINDINGS: The bowel gas pattern is non-obstructive. No evidence of free air or pneumatosis. Contrast is present in colon. Dialysis catheter coils over the upper pelvis.
--- NOTE | 2020-08-06 18:25 | P.DS ---
Admission Date: 08/04/20 Discharge Date: 08/06/20 Disposition: [facility] Discharge Condition: FAIR Reason for Admission: Dysphagia, Weakness Consultations: Neurology - Dr. Calderón Nephrology - Dr. Mcgarry/Jann Procedures: CXR (08/02): lungs appear clear of acute infiltrate. The heart is normal size. Relatively old right fracture MRI Brain (08/03): No acute infarction changes are present. No mass, edema or shift of midline structures. No intracranial hemorrhage is present. Bilateral symmetric basal ganglia signal abnormalities are present. These are not emergent findings and may be related to metabolic disorders seen with dialysis and end-stage renal disease. Follow-up CT Head imaging is suggested to evaluate for any mineralization or basal ganglia changes that may have occurred since the 2019 study. The addition of an MRI GRE or T2*sequence may help with the differential diagnosis. ADDENDUM Given the degree of decreased attenuation in each lentiform nucleus, patient likely has chronic, permanent encephalomalacia or gliosis type change. CT findings are likely long-standing with the MRI findings a reflection of the remote ischemic, metabolic or toxic insult to the patient. The injury may have occurred around the time of the 2019 study. No intervening imaging of the brain is available. In addition to the possible encephalopathy or ischemic events, uncommon toxin exposures such as methanol or ethylene glycol are possible. CT head (08/04): IMPRESSION: No hemorrhage or emergent intracranial abnormality identifiable. Since 2019, patient has developed significant decreased attenuation in a symmetric pattern within each lentiform nucleus (putamin and globus pallidus). These areas have corresponding signal abnormalities on the MRI study. Findings remain nonspecific. A dialysis related metabolic disorder is suspected. Hypertensive, hepatic an uremic encephalopathy can present in a similar but not exact pattern. Additional consultation is being sought and an addendum may be issued to the MRI or CT report. Modified Barium (08/04): Moderate oral dysphagia characterized by delayed initiation of the swallow, reduced oral sensation, decreased mastication, piecemeal deglutition, premature loss of bolus over BOT, and delayed A-P transport. Mild-moderate esophageal phase deficits characterized by barium tablet getting held up in upper esophagus, requiring 2 bites of pudding to clear to lower esophagus. Recommendations: mechanical soft diet, chopped meats, thin liquids. crushed medications KUB (08/06): The bowel gas pattern is non-obstructive. No evidence of free air or pneumatosis. Contrast is present in colon. Dialysis catheter coils over the upper pelvis. Problem List Dysphagia, anorexia, acute malnutrition, hypoalbuminemia possible Peritonitis ESRD on PD malfunction of PD catheter Hypomagnesemia, hypokalemia History of DVT on anticoagulant therapy acute on chronic normocytic Anemia (of chronic disease) Parkinson's Brief History of Present Illness: 55-year-old female with history of Parkinson's, ESRD on PD, hypertension, hyperlipidemia presents emergency department for generalized weakness. Patient reports very poor oral intake over the course of the last few weeks drinking only 1 boost per day, patient reports problems with dysphagia which has worsened over the course of the last 1 month, patient previously with speech therapy at home but was discharged. Labs in the emergency department significant for sodium 135, potassium 2.9, chloride 96 creatinine 8.2 GFR 6 magnesium 1.5 albumin 1.4 hemoglobin 8.8 hematocrit 26.1 MCV 88.1. Patient very weak, malnourished. ED provider wishes to admit for further evaluation and management. Hospital Course: Patient initially was doing well, with improvement of her symptoms, however then reported cloudy peritoneal fluid, with cell count revealing WBC >5k, however PMN <250. She was started on empiric antibiotics. She had malfunction of her PD catheter and was unable to draw fluid back. Cathflo was attempted with no improvement. Patient is transferred to [facility] for further evaluation/management. Her dysphagia was felt secondary to her Parkinson's disease and recent titrating of her medication. Neurology was consulted and provided patient with samples of Kynmobi. She has an appointment with a specialist in [place] in the next 1-2 we eks. Vital Signs/Physical Exam: Physical Exam General: AAOx3, NAD, slow speech HEENT: masked facies Respiratory: Clear to auscultation bilaterally, non-labored on RA Cardiovascular: regular rate/rhythm, Normal S1 S2 Abd: soft, nontender, no rebound MSK: no joint tenderness Integumentary: No significant lesion, No erythema Neurological: Sensation intact, masked facies, slow/soft speech, str 5/5 bilaterally Temp Pulse Resp BP Pulse Ox 97.5 F 95 H 16 143/66 H 100 08/06/20 16:00 08/06/20 16:00 08/06/20 16:00 08/06/20 16:00 08/06/20 16:00 Laboratory Data at Discharge: WBC 8.80 K/uL (4.3-10.9) D 08/06/20 05:31 Hgb 7.8 g/dL (12.0-15.0) L* 08/06/20 05:31 Hct 23.0 % (36.0-45.0) L D 08/06/20 05:31 Plt Count 447 K/uL (152-406) H 08/06/20 05:31 PT 12.9 SECONDS (9.5-12.5) H 08/02/20 23:05 INR 1.12 08/02/20 23:05 Sodium 133 mmol/L (136-145) L 08/06/20 05:31 Potassium 4.0 mmol/L (3.5-5.1) 08/06/20 05:31 BUN 38 mg/dL (7-18) H 08/06/20 05:31 Creatinine 10.30 mg/dL (0.55-1.3) H* 08/06/20 05:31 Glucose 72 mg/dL (74-106) L 08/06/20 05:31 Uric Acid 4.9 mg/dL (2.6-6.0) 08/06/20 05:31 Phosphorus 4.6 mg/dL (2.5-4.9) 08/06/20 05:31 Magnesium 2.1 mg/dL (1.8-2.4) 08/06/20 05:31 Total Bilirubin 0.4 mg/dL (0.2-1.0) 08/06/20 05:31 AST 6 U/L (15-37) L 08/06/20 05:31 ALT < 6 U/L (12-78) L 08/06/20 05:31 Alkaline Phosphatase 60 U/L (45-117) 08/06/20 05:31 Lipase 53 U/L (73-393) L 08/02/20 23:05 Home Medications: Apixaban [Eliquis] 1 tab PO BID 08/03/20 Ascorbic Acid [Vitamin C*] 1 tab PO BEDTIME 08/03/20 Cholecalciferol (Vitamin D3) [Vitamin D3] 5,000 unit PO DAILY 08/03/20 Docusate [Colace Cap*] 1 cap PO DAILY 08/03/20 Melatonin 1 tab PO BEDTIME 08/03/20 Metoclopramide [Reglan*] 1 tab PO DAILY 08/03/20 Ondansetron [Zofran (Odt)*] 1 tab DT TID PRN 08/03/20 PARoxetine HCL [Paroxetine HCl] 1 tab PO DAILY 08/03/20 Pravastatin [Pravachol*] 1 tab PO BEDTIME 08/03/20 Rotigotine [Neupro] 6 mg TD DAILY 08/03/20 Spironolactone [Aldactone] 1 tab PO BID 08/03/20 Physician Discharge Instructions: PROBLEM: Weakness, dysphagia, ESRD GOAL: Clear understanding of disease process INSTRUCTIONS: Diet: RENAL Activity: TOLERATED IF YOU HAVE ANY QUESTIONS REGARDING YOUR STAY CALL [phone] Report [phone] Followup: Noris Beckham MD [Primary Care Provider] - Time spent managing pt's care (in minutes): 40
[2020-08-06 20:24] VITALS: BP 136/88; TEMP 96.9
--- NOTE | 2020-08-06 20:47 | P.PN ---
Date of Service: 08/06/20 Vital Signs Temp Pulse Resp BP Pulse Ox 96.9 F 99 H 16 136/88 100 08/06/20 20:00 08/06/20 20:00 08/06/20 20:00 08/06/20 20:00 08/06/20 20:00 Medications Acetaminophen (Acetaminophen 500 Mg Tab) 500 mg PO Q4HP PRN PRN Reason: Pain scale 2-4 (Mild) Last Admin: 08/05/20 09:32 Dose: 500 mg Documented by: Hydrocodone Bitart/Acetaminophen (Hydrocodone/Apap 5/325 Mg Tab) 1 tab PO Q4H PRN PRN Reason: Pain scale 5-7 (Moderate) Last Admin: 08/05/20 19:02 Dose: 1 tab Documented by: Apixaban (Apixaban 5 Mg Tablet) 5 mg PO BID [facility] Last Admin: 08/06/20 20:04 Dose: 5 mg Documented by: Calcitriol (Calcitrol 0.25 Mcg Cap) 0.5 mcg PO DAILY [facility] Last Admin: 08/06/20 08:56 Dose: 0.5 mcg Documented by: Cholecalciferol (Vitamin D 5,000 Unit Cap) 5,000 unit PO DAILY [facility] Last Admin: 08/06/20 08:56 Dose: 5,000 unit Documented by: Docusate Sodium (Docusate Na 100 Mg Cap) 100 mg PO BID [facility] Last Admin: 08/06/20 20:02 Dose: Not Given Documented by: Home Med (Rotigotine [Neupro]) 6 mg TOP DAILY [facility] Last Admin: 08/06/20 08:58 Dose: Not Given Documented by: Cefepime HCl (Maxipime 2 Gm/20 Ml Swi Ivp) 2 gm in 20 mls @ 240 mls/hr IV Q48H [facility] Last Admin: 08/05/20 11:45 Dose: 20 mls Documented by: Insulin Human Regular (Insulin -Regular Human 50 Unit/0.5 Ml Ml) 0 unit SQ ACHS [facility]; Protocol Last Admin: 08/06/20 20:04 Dose: Not Given Documented by: Metoclopramide HCl (Metoclopramide 5 Mg Tab) 5 mg PO DAILY [facility] Last Admin: 08/06/20 08:56 Dose: 5 mg Documented by: Multivitamins/Minerals (Multivitamin Tab) 1 tab PO DAILY [facility] Last Admin: 08/06/20 08:57 Dose: 1 tab Documented by: Ondansetron HCl (Ondansetron 4 Mg/2 Ml Vial) 4 mg IV Q6HP PRN PRN Reason: NAUSEA / VOMITING Last Admin: 08/05/20 20:05 Dose: 4 mg Documented by: Paroxetine HCl (Paroxetine Hcl 10 Mg Tab) 20 mg PO DAILY [facility] Last Admin: 08/06/20 08:57 Dose: 20 mg Documented by: Sodium Chloride (Flush Normal Saline 10 Ml) 10 ml IV BID [facility] Last Admin: 08/06/20 20:04 Dose: 10 ml Documented by: Lab Results (last 24 hrs) 08/02/20 22:58: ABO/Rh O POSITIVE, Solid Phase Ab Screen Negative, Crossmatch See Detail Microbiology Results 08/04/20 11:05 Body Fluid - Peritoneal Fluid Gram Stain - Final 08/04/20 11:05 Body Fluid - Peritoneal Fluid Culture & Sensitivity - Preliminary No growth. Assessment/ Plan: Nephrology Unable to do PD last night due to a non-functioning PD catheter. PD catheter did not improve overnight with Cathflo. Abdominal pain improving. No acute events overnight Vitals, medications, blood work and imaging reviewed in the chart. NAD. MMM. Neck supple. CTA. RRR. Tender Abd. No C/C. LE Edema trace. No rash. AAO. EXAM DESCRIPTION: Eliud Single View08/02/2020 10:24 pm CLINICAL HISTORY: Chest pain COMPARISON: 2019 FINDINGS: The lungs appear clear of acute infiltrate. The heart is normal size. Relatively old right fracture IMPRESSION: No acute abnormalities displayed ESRD -PD catheter not functioning at this time. -Initiate transfer to a facility with a PD program. -KUB ordered and reviewed. Will need surgical intervention to adjust the PD catheter. Hyponatremia Chronic hypotension -Give IV Albumin PRN Diastolic CHF/ Edema -Low sodium diet DM II with CKD -RISS Severe Malnutrition -Advance nutrition with protein supplementation as tolerated -Continue MVI as tolerated Anemia in CKD -Retacrit prn FEROZ/ Secondary HyperPTH with hypocalcemia -Continue Vitamin D Peritonitis -Continue Vancomycin -Cefepime q48h -Follow up cultures Case reviewed with Dr. Serna
== END 2020-08-06 21:19 | disposition short-term general hospital (02) | DRG 391 ==
LOC: ER 20:13 → 2ND 08-03 01:18 → OBSVTOIN 08-04 15:39
PROVIDERS: ADMIT Hospitalist; ATTEND Hospitalist
PROC: 30233N1 Transfusion of Nonautologous Red Blood Cells into Peripheral Vein, Percutaneous Approach (ICD-10-PCS; principal; 2020-08-05)
DX: R13.10 Dysphagia, unspecified (principal); N18.6 End stage renal disease; E43 Unspecified severe protein-calorie malnutrition; K65.9 Peritonitis, unspecified; I13.11 Hypertensive heart and chronic kidney disease without heart failure, with stage 5 chronic kidney disease, or end stage renal disease; E87.1 Hypo-osmolality and hyponatremia; T82.41XA Breakdown (mechanical) of vascular dialysis catheter, initial encounter; G20 Parkinson's disease; E11.22 Type 2 diabetes mellitus with diabetic chronic kidney disease; E88.09 Other disorders of plasma-protein metabolism, not elsewhere classified; E83.42 Hypomagnesemia; E87.6 Hypokalemia; I95.89 Other hypotension; N25.0 Renal osteodystrophy; D63.1 Anemia in chronic kidney disease; E78.5 Hyperlipidemia, unspecified; Z99.2 Dependence on renal dialysis; Z91.013 Allergy to seafood; Z90.710 Acquired absence of both cervix and uterus; Z79.84 Long term (current) use of oral hypoglycemic drugs; Z79.82 Long term (current) use of aspirin; Z79.899 Other long term (current) drug therapy; Z86.718 Personal history of other venous thrombosis and embolism; Z96.659 Presence of unspecified artificial knee joint; Z79.01 Long term (current) use of anticoagulants; Z98.51 Tubal ligation status; Z60.2 Problems related to living alone; Z68.30 Body mass index [BMI] 30.0-30.9, adult; Z20.822 Contact with and (suspected) exposure to COVID-19
CPT/HCPCS: 36415; 36430; 70450; 70551; 71045; 74018; 74230; 80048; 80053; 80076; 80202; 82728; 82947; 83540; 83690; 83735; 83880; 84100; 84145; 84439; 84443; 84466; 84484; 84550; 85014; 85018; 85025; 85610; 86140; 86850; 86900; 86901; 87070; 87077; 87186; 89050; 92611; 93005; 96374; 96375; 97116; 97162; 97530; 99285; G0378; J0692; J0696; J2405; J2997; J3370; J3475; J3480; J7030; J7040; J7050; J7799; P9016; P9047; Q5106; U0003

== ENCOUNTER 2020-08-17 11:03 | Day surgery (SDC) | payer OTHER ==
[2020-08-17 11:35] LABS: Absolute Lymphocytes (CBC) 1.5 K/uL (0.7-4.9); Basophils % 0.9 % (0-1.3); Hematocrit 28.8 % (36.0-45.0); MPV 7.9 fL (7.6-11.3); RBC Red Blood Cell Count 3.04 M/uL (3.86-4.86)
[2020-08-17 11:50] LABS: Protime INR 1.08
[2020-08-17 11:59] LABS: Potassium 3.8 mmol/L (3.5-5.1)
[2020-08-17] MEDS ORDERED: NA CHLORIDE 0.9% 1,000 ML ONE (12:12)
[2020-08-17] MEDS ORDERED: CEFAZOLIN/SWI 1gm 1 GM/10 ML SYR ONE (13:23)
[2020-08-17] MEDS ORDERED: propofoL 200 MG/20 ML VIAL IV ONE (13:45)
[2020-08-17] MEDS ORDERED: FENTANYL CITR 100 MCG/2 ML ONE ×2 (13:46→15:22)
[2020-08-17] MEDS ORDERED: LIDOCAINE 2% MPF 5 ML VIAL ONE (13:46)
[2020-08-17] MEDS ORDERED: MIDAZOLAM HCL 2 MG/2 ML INJ ONE (13:46)
[2020-08-17] MEDS ORDERED: BUPIVACAINE 0.25% PF 30 ML VIAL ONE (13:47)
[2020-08-17] MEDS ORDERED: ROCURONIUM 50 MG/5 ML VIAL IV ONE (13:48)
[2020-08-17] MEDS ORDERED: ONDANSETRON 4 MG/2 ML VIAL ONE (13:48)
[2020-08-17] MEDS ORDERED: GLYCOPYRROLATE 0.2 MG/ML SYR ONE (13:49)
[2020-08-17] MEDS ORDERED: NEOSTIGMINE 1 MG/ML -5 ML ONE (13:49)
[2020-08-17] MEDS ORDERED: EPHEDRINE SULF 50 MG/ML VIAL ONE (14:17)
--- NOTE | 2020-08-17 15:32 | P.OP ---
Preoperative diagnosis: Peritoneal Dialysis Catheter Dysnfunction Postoperative diagnosis: Peritoneal Dialysis Catheter Dysnfunction Primary procedure: Laparoscopic Placement of Tunnelled Peritoneal Dialysis Catheter Secondary procedure: Removal of Non-functional Peritoneal Dialsys Catheter Other procedure(s): Laparoscopic Adhesiolysis > 30 min Anesthesia: GETA + Local Estimated blood loss: <5cc Specimen: Catheter Removed Findings: Intra-abdominal adhesions causing catheter dysfunction Complications: None Drain(s): Other (Doe Double Cuffed Peritoneal Dialysis Catheter) Transferred to: Recovery Room Condition: Good
[2020-08-17] MEDS: FENTANYL CITR 100 MCG/2 ML ONE ×2 (16:03→16:09)
[2020-08-17] MEDS ORDERED: D50W 50 ML IV ONE (16:08)
[2020-08-17] MEDS ORDERED: HEPARIN 5000 UNIT/ML 1 ML VIAL ONE (16:11)
[2020-08-17] MEDS ORDERED: NS 0.9% VIAL 10 ML ONE (16:11)
[2020-08-17 16:27] VITALS: O2SAT 100
[2020-08-17 16:31] VITALS: TEMP 96.8
--- NOTE | 2020-08-17 16:46 | OP ---
Date of Procedure: 08/17/2020 Surgeon: Riki Decker MD, Preoperative Diagnosis: Peritoneal dialysis catheter dysfunction. Postoperative Diagnosis: Peritoneal dialysis catheter dysfunction. Procedures Performed: 1.Laparoscopic placement of tunneled peritoneal dialysis catheter. 2.Removal of nonfunctional peritoneal dialysis catheter. 3.Laparoscopic adhesiolysis greater than 30 minutes. Anesthesia: General endotracheal plus local with 0.25% Marcaine. Estimated Blood Loss: Less than 5 mL. Specimen: Catheter removed. Findings: 1.Intraabdominal adhesions causing catheter dysfunction. Catheter was kinked and entrapped between adhesions in the pelvis between loops of bowel. 2.Catheter had dark colored slightly greenish hue fluid within the catheter and as such, catheter wa s deemed possibly infected. Therefore, I opted to remove it. Complications: None. Drains/implants: Merit double-cuffed peritoneal dialysis catheter standard-sized. Disposition: The patient was transferred to recovery room in good condition. Procedure In Detail: After informed consent was obtained, the patient was brought to the operating r oom, prepped and draped in the usual sterile fashion after adequate anesthesia was achieved. An area of the left upper quadrant was anesthetized with 0.25% Marcaine and sharply incised, and a 5 mm 0-de gree optical trocar was placed in the abdomen without evidence of complication. Insufflation was obt ained to 15 mmHg at this time. There was no injury to vital structures upon entry to the abdomen. A t this point, I inspected the abdomen and found that the previously placed peritoneal dialysis cathet er was down in the pelvis with the distal end being unable to be visualized; however, there was dark murky fluid within the catheter and some had a greenish hue concerning for possible infection as the catheter had not been functional for some time. I was concerned this was a buildup and possible infe ction of the catheter itself. However, this was in the midportion of the catheter, not near the dist al aspect. There was no fluid in the distal aspect of the catheter after visualization was completed later throughout the case. At this point, an additional trocar was placed in the left lower quadran t, similar anesthetized, sharply incised, and a 5 mm trocar was placed in the abdomen without evidenc e of complication under direct visualization. The catheter was then grasped, elevated, and found to have the fluid as described above and concern for possible contamination. As such, I opted to remove the catheter. Prior to removal of the catheter, however, I stenciled the patient's abdomen in prepa ration preoperatively for placement of a new peritoneal dialysis catheter based on the standard size. At this point, I made an incision over the rectus muscle down through subcutaneous tissues and at t his point placed introducer sheath, placing it down towards the pelvis. At this point, the introduce r sheath was placed. I left the introducer sheath in place at this point and performed an extensive adhesiolysis to allow for better implantation distally into the pelvis. There were significant adhes ions down this area, which were taken down using blunt dissection without evidence of complication. As these alveolar type adhesions were taken down, a good landing zone was appreciated. At this point , the sheath was in good position at this point and I performed dilatation through the introducer she ath at this point and then placed the Merit double-cuffed peritoneal dialysis catheter planting the p roximal cuff into the rectus muscle at this point with a good curl toward the patient's right. At th is point, the stripe was found to be without any twisting and the catheter was clamped on the end. A t this point, I placed the tunneling device on the end of the catheter and brought it out through the standard slightly long the standard right-sided abdominal separate stab incision using the tunneling device and the second cuff was placed in the subcutaneous position. The catheter was tested at this point, flushed quite easily, and was in good anatomic position. The abdomen inspected both visually . Photo was taken of the fluid emanating easily from the catheter at this point. At this point, I o pted to cap the catheter and turned my attention to removal of the previously placed peritoneal dialy sis catheter. I palpated the area and found there to be a double cuff in this area. As such, I made an incision overlying the insertion site as this catheter had been there for approximately 4 years. I then dissected it cuff free and ligated the scar tissue circumferentially growing into the cuff us ing combination of sharp dissection, blunt dissection, and electrocautery. At this point, I made a c ounter incision over the insertion site into the rectus muscle to the left of midline down overlying the cuff and dissected to the anterior rectus sheath and opening the anterior rectus sheath, I graspe d the catheter, pulled it into the operative field and then also removed using a combination of elect rocautery and sharp dissection, the second cuff scar tissue holding the catheter placed. At this poi nt, the catheter was free and flexible. I then removed it in its entirety. Both incisions were copi ously irrigated and the fascia over the rectus sheath was then closed using a #1 Vicryl suture in a r unning fashion. The subcutaneous tissue was then irrigated once again and all skin incisions were co piously irrigated at this point. The catheter was found to be in good anatomic position one last darek e and flush one last time under visualization and the fluid was withdrawn quite easily at this point. I then desufflated the abdomen under direct visualization without evidence of complication, removed the trocars. All skin incisions were copiously irrigated. All incisions were then closed with a 3- 0 Vicryl deep dermal interrupted suture and all dermal planes were then closed using a 4-0 Monocryl i n a running fashion Dermabond was placed over top. The patient tolerated the procedure well without evidence of complication and transferred to PACU in good condition. All counts were correct at the e nd of the case. TK/MODL Voice ID: [id number] Report ID: [id number]
[2020-08-17 19:52] VITALS: BP 158/81
== END 2020-08-17 18:00 | disposition home or self-care (01) ==
LOC: OR 11:03
PROVIDERS: ATTEND Surgery
PROC: 0WPG03Z Removal of Infusion Device from Peritoneal Cavity, Open Approach (ICD-10-PCS; 2020-08-17)
PROC: 0JH83XZ Insertion of Tunneled Vascular Access Device into Abdomen Subcutaneous Tissue and Fascia, Percutaneous Approach (ICD-10-PCS; principal; 2020-08-17 12:30)
DX: Z45.2 Encounter for adjustment and management of vascular access device (principal); N18.6 End stage renal disease; Z99.2 Dependence on renal dialysis
CPT/HCPCS: 85025; 80048; 36415; 85610; 82947 ×2; 85730; 36558; 36589; J2704; J1644 ×2; J2250; J3010 ×3; J2710; J0690; J7030; J2405

== ENCOUNTER 2020-11-17 09:46 | Day surgery (SDC) | payer OTHER ==
[2020-11-17] MEDS ORDERED: NA CHLORIDE 0.9% 500 ML ONE (10:48)
[2020-11-17 10:49] VITALS: O2SAT 100
[2020-11-17] MEDS ORDERED: LIDOCAINE 2% MPF 5 ML VIAL ONE (11:02)
[2020-11-17] MEDS ORDERED: FENTANYL CITR 100 MCG/2 ML ONE (11:02)
[2020-11-17] MEDS ORDERED: propofoL 200 MG/20 ML VIAL IV ONE ×2 (11:02→11:04)
[2020-11-17] MEDS ORDERED: MIDAZOLAM HCL 2 MG/2 ML INJ ONE ×2 (11:02→12:43)
[2020-11-17] MEDS ORDERED: BUPIVACAINE 0.25% PF 10 ML VIAL ONE (11:28)
[2020-11-17 11:56] LABS: Potassium 2.9 mmol/L (3.5-5.1)
--- NOTE | 2020-11-17 12:29 | P.OP ---
Preoperative diagnosis: ESRD, Attention to hemodialysis catheter Postoperative diagnosis: ESRD, Attention to hemodialysis catheter Primary procedure: Removal of Tunnelled RIGTH IJ hemodilysis catheter Anesthesia: MAC + Local Estimated blood loss: <2cc Specimen: catheter for ID only Findings: no bleeding @ end of procedure Complications: None Transferred to: Recovery Room Condition: Good
[2020-11-17 14:08] VITALS: BP 139/71; TEMP 97.2
--- NOTE | 2020-11-17 19:44 | OP ---
Date of Procedure: 11/17/2020 Surgeon: Riki Decker MD, Preoperative Diagnosis: End-stage renal disease/attention to hemodialysis catheter. Postoperative Diagnosis: End-stage renal disease/attention to hemodialysis catheter. Procedure Performed: Removal of tunneled right internal jugular hemodialysis catheter. Anesthesia: MAC plus local, 1% lidocaine without epinephrine. Estimated Blood Loss: Less than 2 cc. Specimen: Catheter for ID only. Findings: No bleeding at the end of procedure. Complications: None. Disposition: The patient transferred to recovery room in good condition. Procedure In Detail: After informed consent was obtained, patient was brought to the operating room, prepped and draped in usual sterile fashion after adequate anesthesia was achieved. I anesthetized the area circumferentially around the insertion site of the right internal jugular vein catheter at t he exit site. I then removed the single suture holding this catheter to the chest wall and dilated u p the insertion site tract and made a small abi incisions using a 15 blade in a T-type orientation d own through subcutaneous tissues. The catheter cuff was then brought into the field after gentle tra ction using Metzenbaum scissors. At this point, I used a scalpel to shear off the attached scar tiss ue and fibrous tissue attachments. Once this was removed, I placed the patient in steep Trendelenbur g, removed the catheter, held pressure at that point and put the patient back in reverse Trendelenbur g position. I irrigated the insertion site and closed it with the single interrupted vertical mattre ss stitch with a 2-0 nylon suture and a sterile dressing was placed over top. The patient tolerated the procedure well without evidence of complication and transferred to PACU in good condition. All c ounts were correct at the end of the case. RADHA/JYOTI Voice ID: [id number] Report ID: [id number]
== END 2020-11-17 13:02 | disposition home or self-care (01) ==
LOC: OR 09:46
PROVIDERS: ATTEND Surgery
PROC: 05PY03Z Removal of Infusion Device from Upper Vein, Open Approach (ICD-10-PCS; principal; 2020-11-17 11:45)
DX: Z49.02 Encounter for fitting and adjustment of peritoneal dialysis catheter (principal); F32.9 Major depressive disorder, single episode, unspecified; E11.22 Type 2 diabetes mellitus with diabetic chronic kidney disease; I12.0 Hypertensive chronic kidney disease with stage 5 chronic kidney disease or end stage renal disease; N18.6 End stage renal disease; Z99.2 Dependence on renal dialysis; Z20.822 Contact with and (suspected) exposure to COVID-19
CPT/HCPCS: 80048; 36415; 88300; 36589; U0003; J2704 ×2; J2250; J3010; J7040

== ENCOUNTER 2021-05-22 13:07 | Emergency (ER) | payer OTHER ==
--- OUTSIDE RECORDS SUMMARY | 2021-05-22 13:13 | XMS REPORT | Continuity of Care Document ---
:1965 Author Organization [facility] [place] t Address [address] [place] [address] Care Team Providers Name Role Phone Dagmar SR Primary Care Physician Unavailable ELPIDIO Attending Clinician Unavailable Mikey Beckham Attending Clinician Unavailable VENKAT PARDO Attending Clinician Unavailable ISRAEL Attending Clinician Unavailable Doctor Unassigned, Name Attending Clinician Unavailable Fazal Lees MD Attending Clinician Teodoro Osullivan MD Attending Clinician ANGELIA Attending Clinician Unavailable NIMO NOGUEIRA Attending Clinician Unavailable Krzysztof CRUM Attending Clinician Unavailable VENKAT PARDO Admitting Clinician Unavailable FANNIE LIANG Admitting Clinician Unavailable ALICIA Admitting Clinician Unavailable NIMO NOGUEIRA Admitting Clinician Unavailable Payers Payer Name Policy Type Policy Number Effective Date Expiration Date S ource OPTUM UNITED ONLY [id number] 2017 MCR REPL 00:00:00 UNITED MEDICARE [id number] 2020 HMO 00:00:00 Problems Condition Condition Condition Status Onset Resolution Last Treating Co mments Source Name Details Category Date Date Treatment Clinician Date Other Other Disease Active [facility] specified specified 9-20 [facility] personal personal 00:00: of risk risk 00 Medicin factors, factors, e not not elsewhere elsewhere classified classified Dysphasia Dysphasia Disease Active [facility] following following 12-02 [facility] unspecifie unspecifie 00:00: of d d 00 Medicin cerebrovas cerebrovas e cular cular disease disease Hypertensi Hypertensi Disease Active [facility] ve heart 12-02 [facility] and and 00:00: of chronic chronic 00 Medicin kidney kidney e disease disease with heart with heart failure failure and with and with stage 5 stage 5 chronic chronic kidney kidney disease, disease, or end or end stage stage renal renal disease disease (HCCode) (HCCode) Cerebrovas Cerebrovas Disease Active [facility] cular cular 12-02 [facility] accident accident 00:00: of (CVA) (CVA) 00 Medicin (HCCode) (HCCode) e Type 2 Type 2 Disease Active [facility] diabetes diabetes 12-02 Colleg e mellitus mellitus 00:00: of with with 00 Medicin chronic chronic e kidney kidney disease disease (HCCode) (HCCode) Cerebral Cerebral Disease Active [facility] atheroscle atheroscle 11-28 Co llege rosis rosis 00:00: of 00 Medicin e Dependence Dependence Disease Active [facility] renal on renal 11-28 [facility] e dialysis dialysis 00:00: of (HCCode) (HCCode) 00 Medici n e Localized Localized Disease Active [facility] edema due edema due 11-28 [facility] to fluid to fluid 00:00: of overload overload 00 Medici n e Acute Acute Disease Active [facility] encephalop encephalop 10-28 Co llege athy athy 00:00: of 00 Medicin e Slurred Slurred Disease Active [facility] speech speech 5- [facility] 00:00: of 00 Medicin e Pre-transp Pre-transp Disease Active 2017-03 Overview : [facility] lant lant 0-23 Last College evaluation evaluation 00:00: Assessmen of for for 00 t & Plan: Medicin chronic chronic She is an e kidney kidney acceptabl disease disease e candidate for kidney transplan t pending further testing and formal review at [facility]. Obesity Obesity Disease Active 2016-03 [facility] (BMI (BMI 1-10 ity of 30-39.9) 30-39.9) 00:00: [place] 00 Medical Branch Malfunctio Malfunctio Disease Active 2016-03 Overview : [facility] n of n of 1-07 Added College arterioven arterioven 00:00: automatic of ous graft ous graft 00 ally from Mikey [facility]elomarie [facility] request e for surgery [id number] Morbid Morbid Disease Active 2016-03 [facility] obesity obesity 0-16 College with body with body 00:00: of mass index mass index 00 Me dicin of of e 40.0-49.9 40.0-49.9 [facility] Thrombosis Thrombosis Disease Active 2016-03 Overview : [facility] of kidney of kidney 0-13 Added ity of dialysis dialysis 00:00: automatic Red as arterioven arterioven 00 ally from Medical ous graft, ous graft, request B prakash initial initial for encounter encounter surgery [id number] ESRD (end ESRD (end Disease Active Overview: [facility] stage stage 8-21 [facility] renal renal 00:00: Assessmen of disease) disease) 00 t & Plan: Med icin on on ESRD due e dialysis dialysis [facility] DM. [facility] She has been on dialysis since 2017. She does have a potential donor at this time.Adde d automatic ally from request for surgery [id number] ESRD ESRD Disease Active Overview: Univer s needing needing 8- Added ity of dialysis dialysis 00:00: automatic Red as 00 ally from Medical request Branch for surgery [id number] CKD CKD Disease Active [facility] (chronic (chronic 4-25 Colleg e kidney kidney 00:00: of disease) disease) 00 Medici n e Major Major Disease Active [facility] depressive depressive 8 Co llege disorder, disorder, 00:00: of recurrent recurrent 00 Medi leticia episode episode e [facility] Localized Localized Disease Active [facility] osteoarthr osteoarthr 8- Co llege osis osis 00:00: of 00 Medicin e 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 6- [place] depression depression 00:00: of with with 00 Medicin psychotic psychotic e features features [facility] ([facility]) Allergic Allergic Disease Active [facility] rhinitis rhinitis 4-05 Colleg e 00:00: of 00 Medicin e Hypertensi Hypertensi Disease Active [facility] on on 06-28 College 00:00: of 00 Medicin e Lumbago Lumbago Disease Active [facility] 4-05 College 00:00: of 00 Medicin e Pain in Pain in Disease Active [facility] joint, joint, 05 [facility] lower leg lower leg 00:00: of 00 Medicin e 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[facility] hyperchole hyperchole 06-28 Co llege sterolemia sterolemia 00:00: of 00 Medicin e Venous Venous Disease Active [facility] (periphera (periphera 06-28 Co llege l) l) 00:00: of insufficie insufficie 00 Me dicin ncy ncy e Depression Depression Disease Active [facility] 06-15 [place] 00:00: of 00 Medicin e Allergies, Adverse Reactions, Alerts Allergy Allergy Status Severity Reaction(s) Onset Inactive Treating Comm ents Source Name Type Date Date Clinician CRAYFISH Allergy Active High Anaphylaxis SL EH 08-06 00:00: 00 SHELLFIS Allergy Active Med Itching SLEH H 14 CONTAINI 00:00: NG 00 PRODUCTS Shellfis Propensi Active Hives 2018-03 Only [facility] h-Derive ty to 03-29 crawfish Colleg e d adverse 00:00: per of Products reaction 00 patient. Medi leticia s to e drug Shellfis Propensi Active Hives 2018-03 Only Univer s h ty to 04 crawfish ity of Derived adverse 00:00: per [place] reaction 00 patient. Medica l s Branch NO KNOWN Allergy Active [facility] shellfis Adverse Active Info Not [facility] Reaction Available [facility] Social History Social Habit Start Date Stop Date Quantity Comments Source History [facility] ge Alcohol Std Drinks of Med icine History [facility] ge Alcohol Binge of Medicine Tobacco use and 2020-01-22 2020-01-22 Never used [facility] Co llege exposure 00:00:00 00:00:00 of Medicine Alcohol intake 2020-01-22 2020-01-22 Lifetime [facility] Col lege 00:00:00 00:00:00 non-drinker of Medicine (finding) History [facility] 2019-11-27 2019-11-27 1 [facility] Alcohol Frequency 00:00:00 00:00:00 of Medi cine Sex Ass[birth year] [facility] 00:00:00 00:00:00 Smoking Status Start Date Stop Date Source Tobacco smoking consumption unknown [facility] Never smoker [facility] o f Medicine Medications Ordered Filled Start Stop Current Ordering Indication Dosage Frequency Signature Comments Components Source Medication Medication Date Date Medication? Clinician (SIG) Name Name hydrocodone 2019-03 Yes [id number] tk 1 tab [facility] -acetaminop 0-29 [id number] po q 8 h Co llege hen (NORCO) 00:00: prn severe of 7.5-325 MG 00 pain Medicin per tablet e paroxetine 2019-03 Yes TAKE 1 [facility] (PAXIL) 20 0-12 TABLET BY [facility] MG tablet 00:00: MOUTH ONCE of 00 DAILY Medicin e pravastatin 2019-03 Yes TAKE 1 [facility] (PRAVACHOL) 0-07 TABLET BY Col lege 40 MG 00:00: MOUTH ONCE of tablet 00 DAILY FOR Medicin 30 DAYS e hydrocodone Yes [id number] tk 1 to 2 [facility] -acetaminop 9-10 [id number] tabs po q C ollege hen (NORCO) 00:00: 6 h prn of 7.5-325 MG 00 severe Medicin per tablet pain e hydrocodone 2020- No [id number] tk 1 to 2 [facility] -acetaminop 9-10 10-29 [id number] tabs po q College hen (NORCO) 00:00: 00:00 6 h prn of 7.5-325 MG 00 :00 severe Medicin per tablet pain e hydrocodone Yes [id number] tk 1 to 2 [facility] -acetaminop 8-20 [id number] tabs po q C ollege hen (NORCO) 00:00: 6 h prn of 7.5-325 MG 00 severe Medicin per tablet pain e hydrocodone 2020- No [id number] tk 1 to 2 [facility] -acetaminop 8-20 09-10 [id number] tabs po q College hen (NORCO) 00:00: 00:00 6 h prn of 7.5-325 MG 00 :00 severe Medicin per tablet pain e Sevelamer 2020-0 Yes TAKE 1 [place] Carbonate 8-07 TABLET BY Colle ge 800 MG TABS 00:00: MOUTH of 00 THREE Medicin TIMES e DAILY WITH MEALS. (TAKE BOTH POWDER AND TABLETS) Sevelamer 2019-0 Yes TAKE 1 [place] Carbonate 8-07 TABLET BY Colle ge 800 MG TABS 00:00: MOUTH of 00 THREE Medicin TIMES e DAILY WITH MEALS. (TAKE BOTH POWDER AND TABLETS) Sevelamer 2019-0 Yes TAKE 1 [facility] Carbonate 8-07 TABLET BY Colle ge 800 MG TABS 00:00: MOUTH of 00 THREE Medicin TIMES e DAILY WITH MEALS. (TAKE BOTH POWDER AND TABLETS) Sevelamer 2019-0 Yes MIX ONE [facility] Carbonate 8-03 PACKET [place] 0.8 g PACK 00:00: WITH 2OZ. of 00 OF WATER Medicin THEN DRINK e WITH MEAL THREE TIMES A DAY Sevelamer 2019-0 Yes MIX ONE [facility] Carbonate 8-03 PACKET College 0.8 g PACK 00:00: WITH 2OZ. of 00 OF WATER Medicin THEN DRINK e WITH MEAL THREE TIMES A DAY Sevelamer 2019-0 Yes MIX ONE [facility] Carbonate 8-03 PACKET [place] 0.8 g PACK 00:00: WITH 2OZ. of 00 OF WATER Medicin THEN DRINK e WITH MEAL THREE TIMES A DAY ELIQUIS 5 2019- Yes TAKE 1 [facility] MG TABS 7-30 TABLET BY [place] 00:00: MOUTH of 00 TWICE Medicin DAILY FOR e 90 DAYS metformin 2019-0 Yes TAKE 1 [facility] (GLUCOPHAGE 7-30 TABLET BY Col lege ) 500 MG 00:00: MOUTH ONCE of tablet 00 DAILY WITH Medicin A MEAL FOR e 90 DAYS ELIQUIS 5 2019- Yes TAKE 1 [facility] MG TABS 7-30 TABLET BY [place] 00:00: MOUTH of 00 TWICE Medicin DAILY FOR e 90 DAYS metformin 2019-0 Yes TAKE 1 [facility] (GLUCOPHAGE 7-30 TABLET BY Col lege ) 500 MG 00:00: MOUTH ONCE of tablet 00 DAILY WITH Medicin A MEAL FOR e 90 DAYS ELIQUIS 5 Yes TAKE 1 [facility] MG TABS 7-30 TABLET BY [place] 00:00: MOUTH of 00 TWICE Medicin DAILY FOR e 90 DAYS metformin 2019-0 Yes TAKE 1 [facility] (GLUCOPHAGE 7-30 TABLET BY Col lege ) 500 MG 00:00: MOUTH ONCE of tablet 00 DAILY WITH Medicin A MEAL FOR e 90 DAYS spironolact 2020-0 Yes TAKE 1 [facility] one 7-29 TABLET BY [place] (ALDACTONE) 00:00: MOUTH ONCE of 25 MG 00 DAILY Medicin tablet e spironolact 2020-0 Yes TAKE 1 [facility] one 7-29 TABLET BY [place] (ALDACTONE) 00:00: MOUTH ONCE of 25 MG 00 DAILY Medicin tablet e spironolact 2020-0 Yes TAKE 1 [facility] one 7-29 TABLET BY [place] (ALDACTONE) 00:00: MOUTH ONCE of 25 MG 00 DAILY Medicin tablet e atenolol 2020-0 Yes TAKE 1 [facility] (TENORMIN) 7-10 TABLET BY [facility] 50 MG 00:00: MOUTH ONCE of tablet 00 DAILY Medicin e clonidine 2020-0 Yes TAKE 1 [facility] (CATAPRESS) 7-10 TABLET BY Col lege 0.3 MG 00:00: MOUTH ONCE of tablet 00 DAILY Medicin e doxazosin 2020-0 Yes TAKE 1 [facility] (CARDURA) 8 7-10 TABLET BY Col lege MG tablet 00:00: MOUTH ONCE of 00 DAILY Medicin e atenolol 2020-0 Yes TAKE 1 [facility] (TENORMIN) 7-10 TABLET BY [facility] 50 MG 00:00: MOUTH ONCE of tablet 00 DAILY Medicin e clonidine 2020-0 Yes TAKE 1 [facility] (CATAPRESS) 7-10 TABLET BY Col lege 0.3 MG 00:00: MOUTH ONCE of tablet 00 DAILY Medicin e doxazosin 2020-0 Yes TAKE 1 [facility] (CARDURA) 8 7-10 TABLET BY Col lege MG tablet 00:00: MOUTH ONCE of 00 DAILY Medicin e atenolol 2020-0 Yes TAKE 1 [facility] (TENORMIN) 7-10 TABLET BY [facility] 50 MG 00:00: MOUTH ONCE of tablet 00 DAILY Medicin e clonidine 2020-0 Yes TAKE 1 [facility] (CATAPRESS) 7-10 TABLET BY Col lege 0.3 MG 00:00: MOUTH ONCE of tablet 00 DAILY Medicin e doxazosin 2020-0 Yes TAKE 1 [facility] (CARDURA) 8 7-10 TABLET BY Col lege MG tablet 00:00: MOUTH ONCE of 00 DAILY Medicin e ascorbic 2019-1 Yes 500mg Take 500 Univ ers acid, 1-04 mg by ity of vitamin C, 16:36: mouth. [place] 500 mg 39 Medical tablet Branch calcitriol 2018-03 Yes .25ug Take 0.25 U nivers 0.25 mcg 1-04 mcg by ity of capsule 16:36: mouth. [place] [address] Medical Branch Cholecalcif 2018-03 Yes 5000U Take 5,000 [facility] herbert, 1-04 Units by ity of Vitamin D3, 16:36: [place] 5[place] 39 Medical tablet Branch ferrous 2018-03 Yes 324mg Take 324 Unive rs gluconate 1-04 mg by ity of 324 mg (38 16:36: mouth. [place] mg iron) 39 Medical tablet Branch sevelamer 2018-03 Yes .8g Take 0.8 g Un mike carbonate 1-04 by mouth 3 ity of 0.8 gram 16:36: (three) [place] powder 39 times Medical packet daily with Branch meals. melatonin 2018-03 Yes 1{tbl} Take 1 Univ ers 10 mg Tab 1-04 tablet by ity o f 16:36: mouth at [place] [address] bedtime. Medical Branch ascorbic 2018-03 Yes 500mg Take 500 Univ ers acid, 1-04 mg by ity of vitamin C, 16:36: mouth. [place] 500 mg 39 Medical tablet Branch calcitriol 2018-03 Yes .25ug Take 0.25 U nivers 0.25 mcg 1-04 mcg by ity of capsule 16:36: mouth. [place] [address] Medical Branch Cholecalcif 2018-03 Yes 5000U Take 5,000 [facility] herbert, 1-04 Units by ity of Vitamin D3, 16:36: [place] 5[place] 39 Medical tablet Branch ferrous 2018-03 Yes 324mg Take 324 Unive rs gluconate 1-04 mg by ity of 324 mg (38 16:36: mouth. [place] mg iron) 39 Medical tablet Branch sevelamer 2018-03 Yes .8g Take 0.8 g Un mike carbonate 1-04 by mouth 3 ity of 0.8 gram 16:36: (three) [place] powder 39 times Medical packet daily with Branch meals. melatonin 2018-03 Yes 1{tbl} Take 1 Univ ers 10 mg Tab 1-04 tablet by ity o f 16:36: mouth at [place] [address] bedtime. Medical Branch ascorbic 2018-03 Yes 500mg Take 500 Univ ers acid, 1-04 mg by ity of vitamin C, 16:36: mouth. [place] 500 mg 39 Medical tablet Branch calcitriol 2018-03 Yes .25ug Take 0.25 U nivers 0.25 mcg 1-04 mcg by ity of capsule 16:36: mouth. [place] [address] Medical Branch Cholecalcif 2018-03 Yes 5000U Take 5,000 [facility] herbert, 1-04 Units by ity of Vitamin D3, 16:36: [place] 5[place] 39 Medical tablet Branch ferrous 2018-03 Yes 324mg Take 324 Unive rs gluconate 1-04 mg by ity of 324 mg (38 16:36: mouth. [place] mg iron) 39 Medical tablet Branch sevelamer 2018-03 Yes .8g Take 0.8 g Un mike carbonate 1-04 by mouth 3 ity of 0.8 gram 16:36: (three) [place] powder 39 times Medical packet daily with Branch meals. melatonin 2018-03 Yes 1{tbl} Take 1 Univ ers 10 mg Tab 1-04 tablet by ity o f 16:36: mouth at [place] [address] bedtime. Medical Branch ascorbic 2018-03 Yes 500mg Take 500 Univ ers acid, 1-04 mg by ity of vitamin C, 16:36: mouth. [place] 500 mg 39 Medical tablet Branch calcitriol 2018-03 Yes .25ug Take 0.25 U nivers 0.25 mcg 1-04 mcg by ity of capsule 16:36: mouth. [place] [address] Medical Branch Cholecalcif 2018-03 Yes 5000U Take 5,000 [facility] herbert, 1-04 Units by ity of Vitamin D3, 16:36: [place] 5,000 [place] 39 Medical tablet Branch ferrous 2018-03 Yes 324mg Take 324 Unive rs gluconate 1-04 mg by ity of 324 mg (38 16:36: mouth. [place] mg iron) 39 Medical tablet Branch sevelamer 2018-03 Yes .8g Take 0.8 g Un mike carbonate 1-04 by mouth 3 ity of 0.8 gram 16:36: (three) [place] powder 39 times Medical packet daily with Branch meals. melatonin 2018-03 Yes 1{tbl} Take 1 Univ ers 10 mg Tab 1-04 tablet by ity o f 16:36: mouth at [place] [address] bedtime. Medical Branch ascorbic 2018-03 Yes 500mg Take 500 Univ ers acid, 1-04 mg by ity of vitamin C, 16:36: mouth. [place] 500 mg 39 Medical tablet Branch calcitriol 2018-03 Yes .25ug Take 0.25 U nivers 0.25 mcg 1-04 mcg by ity of capsule 16:36: mouth. [place] 39 Medical Branch Cholecalcif 2018-03 Yes 5000U Take 5,000 [facility] herbert, 1-04 Units by ity of Vitamin D3, 16:36: [place]. [place] 5,000 unit 39 Medical tablet Branch ferrous 2018-03 Yes 324mg Take 324 Unive rs gluconate 1-04 mg by ity of 324 mg (38 16:36: mouth. [place] mg iron) 39 Medical tablet Branch sevelamer 2018-03 Yes .8g Take 0.8 g Un mike carbonate 1-04 by mouth 3 ity of 0.8 gram 16:36: (three) [place] powder 39 times Medical packet daily with Branch meals. melatonin 2018-03 Yes 1{tbl} Take 1 Univ ers 10 mg Tab 1-04 tablet by ity o f 16:36: mouth at [place] [address] bedtime. Medical Branch ascorbic 2018-03 Yes 500mg Take 500 Univ ers acid, 1-04 mg by ity of vitamin C, 16:36: mouth. [place] 500 mg 39 Medical tablet Branch calcitriol 2018-03 Yes .25ug Take 0.25 U nivers 0.25 mcg 1-04 mcg by ity of capsule 16:36: mouth. [place] [address] Medical Branch Cholecalcif 2018-03 Yes 5000U Take 5,000 [facility] herbert, 1-04 Units by ity of Vitamin D3, 16:36: [place]. [place] 5[place]000 unit 39 Medical tablet Branch ferrous 2018-03 Yes 324mg Take 324 Unive rs gluconate 1-04 mg by ity of 324 mg (38 16:36: mouth. [place] mg iron) 39 Medical tablet Branch sevelamer 2018-03 Yes .8g Take 0.8 g Un mike carbonate 1-04 by mouth 3 ity of 0.8 gram 16:36: (three) [place] powder 39 times Medical packet daily with Branch meals. melatonin 2018-03 Yes 1{tbl} Take 1 Univ ers 10 mg Tab 1-04 tablet by ity o f 16:36: mouth at [place] [address] bedtime. Medical Branch aspirin 81 2018-03 Yes 81mg Take 81 mg U nivers mg EC 1-04 by mouth ity of tablet 16:32: daily. [place] [address] Medical Branch glimepiride 2018-03 Yes 4mg Take 4 mg U nivers 4 mg tablet 1-04 by mouth ity of 16:32: daily with [place] [address] breakfast. Medical Branch aspirin 81 2018-03 Yes 81mg Take 81 mg U nivers mg EC 1-04 by mouth ity of tablet 16:32: daily. [place] [address] Medical Branch glimepiride 2018-03 Yes 4mg Take 4 mg U nivers 4 mg tablet 1-04 by mouth ity of 16:32: daily with [place] [address] breakfast. Medical Branch aspirin 81 2018-03 Yes 81mg Take 81 mg U nivers mg EC 1-04 by mouth ity of tablet 16:32: daily. [place] [address] Medical Branch glimepiride 2018-03 Yes 4mg Take 4 mg U nivers 4 mg tablet 1-04 by mouth ity of 16:32: daily with [place] [address] breakfast. Medical Branch aspirin 81 2018-03 Yes 81mg Take 81 mg U nivers mg EC 1-04 by mouth ity of tablet 16:32: daily. [place] [address] Medical Branch glimepiride 2018-03 Yes 4mg Take 4 mg U nivers 4 mg tablet 1-04 by mouth ity of 16:32: daily with [place] [address] breakfast. Medical Branch aspirin 81 2018-03 Yes 81mg Take 81 mg U nivers mg EC 1-04 by mouth ity of tablet 16:32: daily. [address] Branch glimepiride 2018-03 Yes 4mg Take 4 mg U nivers 4 mg tablet 1-04 by mouth ity of 16:32: daily with [place] [address] breakfast. Medical Branch aspirin 81 2018-03 Yes 81mg Take 81 mg U nivers mg EC 1-04 by mouth ity of tablet 16:32: daily. [address] Branch glimepiride 2018-03 Yes 4mg Take 4 mg U nivers 4 mg tablet 1-04 by mouth ity of 16:32: daily with [place] [address] breakfast. Medical Branch metFORMIN 2018-03 Yes TAKE 1 Univer s 500 mg 0-08 TABLET BY ity of tablet 00:00: MOUTH ONCE [place] 00 DAILY WITH Medical A MEAL FOR Branch 90 DAYS metFORMIN 2018-03 Yes TAKE 1 Univer s 500 mg 0-08 TABLET BY ity of tablet 00:00: MOUTH ONCE [place] 00 DAILY WITH Medical A MEAL FOR Branch 90 DAYS metFORMIN 2018-03 Yes TAKE 1 Univer s 500 mg 0-08 TABLET BY ity of tablet 00:00: MOUTH ONCE [place] 00 DAILY WITH Medical A MEAL FOR Branch 90 DAYS metFORMIN 2019- Yes TAKE 1 Univer s 500 mg 0-08 TABLET BY ity of tablet 00:00: MOUTH ONCE [place] 00 DAILY WITH Medical A MEAL FOR Branch 90 DAYS metFORMIN 2019- Yes TAKE 1 Univer s 500 mg 0-08 TABLET BY ity of tablet 00:00: MOUTH ONCE [place] 00 DAILY WITH Medical A MEAL FOR Branch 90 DAYS metFORMIN 2018- Yes TAKE 1 Univer s 500 mg 0-08 TABLET BY ity of tablet 00:00: MOUTH ONCE [place] 00 DAILY WITH Medical A MEAL FOR Branch 90 DAYS ONETOUCH 2018-03 Yes USE Univers VERIO FLEX 0-02 DIRECTED ity o f Misc 00:00: [facility]CE DAILY [place] [facility] USE Univers VERIO FLEX 0-02 DIRECTED ity o f Misc 00:00: ONCE DAILY [place] [facility] 2018- Yes USE Univers VERIO FLEX 0-02 DIRECTED ity o f Misc 00:00: [facility] DAILY [place] [facility]- Yes USE Univers VERIO FLEX 0-02 DIRECTED ity o f Misc 00:00: ONCE DAILY [place] [facility]- Yes USE Univers VERIO FLEX 0-02 DIRECTED ity o f Misc 00:00: ONCE DAILY [place] [facility]- Yes USE Univers VERIO FLEX 0-02 DIRECTED ity o f Misc 00:00: ONCE DAILY [place] [facility] clopidogrel 2019-0 Yes 75mg Take 75 mg Univers 75 mg 6-17 by mouth. ity of tablet 00:00: [place] [facility] clopidogrel 2019-0 Yes 75mg Take 75 mg Univers 75 mg 6-17 by mouth. ity of tablet 00:00: [place] [facility] clopidogrel 2019-0 Yes 75mg Take 75 mg Univers 75 mg 6-17 by mouth. ity of tablet 00:00: [place] [facility] clopidogrel 2019-0 Yes 75mg Take 75 mg Univers 75 mg 6-17 by mouth. ity of tablet 00:00: [place] [facility] clopidogrel 2019-0 Yes 75mg Take 75 mg Univers 75 mg 6-17 by mouth. ity of tablet 00:00: [place] 00 Medical Branch clopidogrel 2019-0 Yes 75mg Take 75 mg Univers 75 mg 6-17 by mouth. ity of tablet 00:00: [place] 00 Medical Branch acetaminoph 2016-03 Yes 1{tbl} Take 1 Un mike en-codeine 0-16 tablet by ity of 300-30 mg 00:00: mouth [place] tablet 00 every 4 Medical (four) Branch hours as needed for Pain (scale 1-3). acetaminoph 2016-03 Yes 1{tbl} Take 1 Un mike en-codeine 0-16 tablet by ity of 300-30 mg 00:00: mouth [place] tablet 00 every 4 Medical (four) Branch hours as needed for Pain (scale 1-3). acetaminoph 2016-03 Yes 1{tbl} Take 1 Un mike en-codeine 0-16 tablet by ity of 300-30 mg 00:00: mouth [place] tablet 00 every 4 Medical (four) Branch hours as needed for Pain (scale 1-3). acetaminoph 2016-03 Yes 1{tbl} Take 1 Un mike en-codeine 0-16 tablet by ity of 300-30 mg 00:00: mouth [place] tablet 00 every 4 Medical (four) Branch hours as needed for Pain (scale 1-3). acetaminoph 2016-03 Yes 1{tbl} Take 1 Un mike en-codeine 0-16 tablet by ity of 300-30 mg 00:00: mouth [place] tablet 00 every 4 Medical (four) Branch hours as needed for Pain (scale 1-3). acetaminoph 2016-03 Yes 1{tbl} Take 1 Un mike en-codeine 0-16 tablet by ity of 300-30 mg 00:00: mouth [place] tablet 00 every 4 Medical (four) Branch hours as needed for Pain (scale 1-3). cloniDINE Yes 1{patch Apply 1 Un mike 0.3 mg/24 8-04 } Patch to ity of hr patch 00:00: skin as [place] 00 needed. Medical Branch cloniDINE Yes 1{patch Apply 1 Un mike 0.3 mg/24 8-04 } Patch to ity of hr patch 00:00: skin as [place] 00 needed. Medical Branch cloniDINE Yes 1{patch Apply 1 Un mike 0.3 mg/24 8-04 } Patch to ity of hr patch 00:00: skin as [place] needed. Medical Branch cloniDINE 2017- Yes 1{patch Apply 1 Un mike 0.3 mg/24 8-04 } Patch to ity of hr patch 00:00: skin as [place] needed. Medical Branch cloniDINE 2016-0 Yes 1{patch Apply 1 Un mike 0.3 mg/24 8-04 } Patch to ity of hr patch 00:00: skin as [place] needed. Medical Branch cloniDINE 2016- Yes 1{patch Apply 1 Un mike 0.3 mg/24 8-04 } Patch to ity of hr patch 00:00: skin as [place] needed. Medical Branch pravastatin Yes 20mg Take 20 mg [facility] 20 mg 8-02 by mouth ity of tablet 00:00: at [place] [id number] bedtime. Medical Branch pravastatin Yes 20mg Take 20 mg [facility] 20 mg 8-02 by mouth ity of tablet 00:00: at [place] [address] bedtime. Medical Branch pravastatin Yes 20mg Take 20 mg [facility] 20 mg 8-02 by mouth ity of tablet 00:00: at [place] [address] bedtime. Medical Branch pravastatin Yes 20mg Take 20 mg [facility] 20 mg 8-02 by mouth ity of tablet 00:00: at [place] [address] bedtime. Medical Branch pravastatin Yes 20mg Take 20 mg [facility] 20 mg 8-02 by mouth ity of tablet 00:00: at [place] [address] bedtime. Medical Branch pravastatin Yes 20mg Take 20 mg [facility] 20 mg 8-02 by mouth ity of tablet 00:00: at [place] [address] bedtime. Medical Branch atenolol 50 Yes 50mg Take 50 mg [facility] mg tablet 7-20 by mouth ity of 00:00: daily. Medical Branch atenolol 50 Yes 50mg Take 50 mg [facility] mg tablet 7-20 by mouth ity of 00:00: daily. Medical Branch atenolol 50 Yes 50mg Take 50 mg [facility] mg tablet 7-20 by mouth ity of 00:00: daily. [facility] Branch atenolol 50 Yes 50mg Take 50 mg [facility] mg tablet 7-20 by mouth ity of 00:00: daily. Medical Branch atenolol 50 Yes 50mg Take 50 mg [facility] mg tablet 7-20 by mouth ity of 00:00: daily. Medical Branch atenolol 50 0 Yes 50mg Take 50 mg [facility] mg tablet 7-20 by mouth ity of 00:00: daily. Medical Branch JANUVIA 50 0 Yes 50mg Take 50 mg U nivers mg tablet 7-17 by mouth ity of 00:00: daily. [facility] [place] YANI 50 0 Yes 50mg Take 50 mg U nivers mg tablet 7-17 by mouth ity of 00:00: daily. [facility] DARRENARTURO 50 Yes 50mg Take 50 mg U nivers mg tablet 7-17 by mouth ity of 00:00: daily. [facility] [place] DARRENARTURO 50 0 Yes 50mg Take 50 mg U nivers mg tablet 7-17 by mouth ity of 00:00: daily. [facility] DARRENARTURO 50 Yes 50mg Take 50 mg U nivers mg tablet 7-17 by mouth ity of 00:00: daily. [facility] YANI 50 0 Yes 50mg Take 50 mg U nivers mg tablet 7-17 by mouth ity of 00:00: daily. Medical Branch ramipril 5 Yes 5mg Take 5 mg Un mike mg capsule 7-14 by mouth ity o f 00:00: every evening. Medical Branch acetaminoph Yes 1{tbl} Take 1 Un mike en-codeine 7-14 tablet by ity of 300-30 mg 00:00: mouth [place] tablet 00 every 6 Medical (six) Branch hours as needed. acetaminoph Yes 1{tbl} Take 1 Un mike en-codeine 7-14 tablet by ity of 300-30 mg 00:00: mouth [place] tablet 00 every 6 Medical (six) Branch hours as needed. doxazosin 4 Yes 4mg Take 4 mg U nivers mg tablet 7-14 by mouth 2 ity of 00:00: (two) [place] 00 times Medical daily. Branch ramipril 5 Yes 5mg Take 5 mg Un mike mg capsule 7-14 by mouth ity o f 00:00: every [place] 00 evening. Medical Branch acetaminoph 2017-0 Yes 1{tbl} Take 1 Un mike en-codeine 7-14 tablet by ity of 300-30 mg 00:00: mouth [place] tablet 00 every 6 Medical (six) Branch hours as needed. doxazosin 4 2017-0 Yes 4mg Take 4 mg U nivers mg tablet 7-14 by mouth 2 ity of 00:00: (two) [place] 00 times Medical daily. Branch doxazosin 4 2017-0 Yes 4mg Take 4 mg U nivers mg tablet 7-14 by mouth 2 ity of 00:00: (two) [place] 00 times Medical daily. Branch ramipril 5 2016-0 Yes 5mg Take 5 mg Un mike mg capsule 7-14 by mouth ity o f 00:00: every [place] 00 evening. Medical Branch ramipril 5 2016-0 Yes 5mg Take 5 mg Un mike mg capsule 7-14 by mouth ity o f 00:00: every [place] 00 evening. Medical Branch acetaminoph Yes 1{tbl} Take 1 Un mike en-codeine 7-14 tablet by ity of 300-30 mg 00:00: mouth [place] tablet 00 every 6 Medical (six) Branch hours as needed. doxazosin 4 2016-0 Yes 4mg Take 4 mg U nivers mg tablet 7-14 by mouth 2 ity of 00:00: (two) [place] 00 times Medical daily. Branch ramipril 5 2016-0 Yes 5mg Take 5 mg Un mike mg capsule 7-14 by mouth ity o f 00:00: every [place] 00 evening. Medical Branch acetaminoph Yes 1{tbl} Take 1 Un mike en-codeine 7-14 tablet by ity of 300-30 mg 00:00: mouth [place] tablet 00 every 6 Medical (six) Branch hours as needed. doxazosin 4 2016-0 Yes 4mg Take 4 mg U nivers mg tablet 7-14 by mouth 2 ity of 00:00: (two) [place] 00 times Medical daily. Branch ramipril 5 2017-0 Yes 5mg Take 5 mg Un mike mg capsule 7-14 by mouth ity o f 00:00: every [place] 00 evening. Medical Branch acetaminoph Yes 1{tbl} Take 1 Un mike en-codeine 7-14 tablet by ity of 300-30 mg 00:00: mouth [place] tablet 00 every 6 Medical (six) Branch hours as needed. doxazosin 4 Yes 4mg Take 4 mg U nivers mg tablet 7-14 by mouth 2 ity of 00:00: (two) times Medical daily. Branch [facility] 10 Yes 10mg 10 mg Unive rs mg Tab 6-21 every ity of 00:00: evening. [facility] Branch [facility] 10 Yes 10mg 10 mg Unive rs mg Tab 6-21 every ity of 00:00: evening. [facility] Branch [facility] 10 Yes 10mg 10 mg Unive rs mg Tab 6-21 every ity of 00:00: evening. [facility] Branch [facility] 10 Yes 10mg 10 mg Unive rs mg Tab 6-21 every ity of 00:00: evening. [facility] Branch [facility] 10 Yes 10mg 10 mg Unive rs mg Tab 6-21 every ity of 00:00: evening. [facility] Branch [facility] 10 Yes 10mg 10 mg Unive rs mg Tab 6-21 every ity of 00:00: evening. [facility] Branch KLOR-CON Yes Univers M10 10 mEq 6-20 ity of tablet 00:00: [facility] Branch KLOR-CON Yes Univers M10 10 mEq 6-20 ity of tablet 00:00: Medical Branch KLOR-CON Yes Univers M10 10 mEq 6-20 ity of tablet 00:00: Medical Branch KLOR-CON Yes Univers M10 10 mEq 6-20 ity of tablet 00:00: Medical Branch KLOR-CON Yes Univers M10 10 mEq 6-20 ity of tablet 00:00: [facility] Branch KLOR-CON Yes Univers M10 10 mEq 6-20 ity of tablet 00:00: Medical Branch cloniDINE Yes .1mg Take 0.1 Univ ers 0.1 mg 5-25 mg by ity of tablet 00:00: mouth 2 (two) Medical times Branch daily. cloniDINE Yes .1mg Take 0.1 Univ ers 0.1 mg 5-25 mg by ity of tablet 00:00: mouth 2 [place] (two) Medical times Branch daily. cloniDINE 2017-0 Yes .1mg Take 0.1 Univ ers 0.1 mg 5-25 mg by ity of tablet 00:00: mouth 2 [place] (two) Medical times Branch daily. cloniDINE 2017-0 Yes .1mg Take 0.1 Univ ers 0.1 mg 5-25 mg by ity of tablet 00:00: mouth 2 [place] (two) Medical times Branch daily. cloniDINE 2017-0 Yes .1mg Take 0.1 Univ ers 0.1 mg 5-25 mg by ity of tablet 00:00: mouth 2 [place] (two) Medical times Branch daily. cloniDINE 2017-0 Yes .1mg Take 0.1 Univ ers 0.1 mg 5-25 mg by ity of tablet 00:00: mouth 2 [place] (two) Medical times Branch daily. NIFEdipine 2017-0 Yes 90mg Take 90 mg U nivers XL 90 mg 24 5-24 by mouth ity of hr tablet 00:00: daily. [address] NIFEdipine 2017-0 Yes 90mg Take 90 mg U nivers XL 90 mg 24 5-24 by mouth ity of hr tablet 00:00: daily. [place] [facility] NIFEdipine 2017-0 Yes 90mg Take 90 mg U nivers XL 90 mg 24 5-24 by mouth ity of hr tablet 00:00: daily. [address] NIFEdipine 2017-0 Yes 90mg Take 90 mg U nivers XL 90 mg 24 5-24 by mouth ity of hr tablet 00:00: daily. [address] NIFEdipine 2017-0 Yes 90mg Take 90 mg U nivers XL 90 mg 24 5-24 by mouth ity of hr tablet 00:00: daily. [address] NIFEdipine 2017-0 Yes 90mg Take 90 mg U nivers XL 90 mg 24 5-24 by mouth ity of hr tablet 00:00: daily. [address] hydroCHLORO 2017-0 Yes Univer s thiazide 25 5-23 ity of mg tablet 00:00: [address] hydroCHLORO 2017-0 Yes Univer s thiazide 25 5-23 ity of mg tablet 00:00: [address] hydroCHLORO 2017-0 Yes Univer s thiazide 25 5-23 ity of mg tablet 00:00: [place] [facility] hydroCHLORO Yes Univer s thiazide 25 5-23 ity of mg tablet 00:00: [place] [facility] hydroCHLORO Yes Univer s thiazide 25 5-23 ity of mg tablet 00:00: [place] [facility] hydroCHLORO Yes Univer s thiazide 25 5-23 ity of mg tablet 00:00: [address] Vitamin D-3 Vitamin D-3 Yes Eric [address] [facility] Melatonin Melatonin Yes Eric [address] [facility] at bedtime [facility] with food l [facility] Metformin Metformin Yes Eric [address] [facility] HCl HCl [facility] with a [facility] meal [facility] Atenolol Atenolol Yes Eric [address] [facility] Fluoxetine Fluoxetine Yes Eric [address] [facility] [facility] HCl HCl Rodriguez [facility] Ferrous Ferrous Yes Eric [address] Sulfate Sulfate Rodriguez [facility] Vitamin C Vitamin C Yes Eric as [facility] Pravastatin Pravastatin Yes Eric [address] [facility] Sodium Sodium [facility] Sevelamer Sevelamer Yes Eric [address] [facility] [address] Carbonate Carbonate [facility] mixed with [facility] - 30 ml of Memoria water with l meals Outpati ent Clinics Vitamin B Vitamin B Yes Eric as [facility] Complex Complex [facility] directed [facility] Doxazosin Doxazosin Yes Eric [address] [facility] [facility] Mesylate Mesylate [facility] Eliquis Eliquis Yes Eric TAKE [address] [facility] TABLET BY [facility] TWICE l DAILY FOR Outpati 90 DAYS ent Clinics NIFEdipine NIFEdipine Yes Eric TAKE [address] [facility] ER ER [facility] TABLET BY [facility] EVERY 12 l HOURS [facility] Metformin Metformin Yes Eric [address] [facility] HCl HCl [facility] with a [facility] Immunizations Ordered Immunization Filled Immunization Date Status Commen ts Source Name Name Influenza 2016-01-21 Completed [facility] (Preservative Free) 00:00:00 of Me [place] Influenza 2016-01-21 Completed [facility] (Preservative Free) 00:00:00 of Me dicine Influenza 2016-01-21 Completed [facility] (Preservative Free) 00:00:00 of Me dicine Influenza 2015-01-14 Completed [facility] (Preservative Free) 00:00:00 of Me dicine Pneumococcal 2015-01-14 Completed [facility] ge 13-valent Conjugate 00:00:00 of Me dicine Vaccine Influenza 2015-01-14 Completed [facility] (Preservative Free) 00:00:00 of Me dicine Pneumococcal 2015-01-14 Completed [facility] ge 13-valent Conjugate 00:00:00 of Me dicine Vaccine Influenza 2015-01-14 Completed [facility] (Preservative Free) 00:00:00 of Me dicine Pneumococcal 2015-01-14 Completed [facility] ge 13-valent Conjugate 00:00:00 of Me dicine Vaccine Influenza 2014-02-09 Completed [facility] (Preservative Free) 00:00:00 of Me dicine Influenza 2014-02-09 Completed [facility] (Preservative Free) 00:00:00 of Me dicine Influenza 2014-02-09 Completed [facility] (Preservative Free) 00:00:00 of Me dicine Influenza 2013-01-20 Completed [facility] (Preservative Free) 00:00:00 of Me dicine Influenza 2013-01-20 Completed [facility] (Preservative Free) 00:00:00 of Me dicine Influenza 2013-01-20 Completed [facility] (Preservative Free) 00:00:00 of Me dicine Influenza 2010-12-16 Completed [facility] (Preservative Free) 00:00:00 of Me dicine Influenza 2010-12-16 Completed [facility] (Preservative Free) 00:00:00 of Me dicine Influenza 2010-12-16 Completed [facility] (Preservative Free) 00:00:00 of Me dicine Influenza 2010-02-28 Completed [facility] (Preservative Free) 00:00:00 of Me dicine Influenza 2010-02-28 Completed [facility] (Preservative Free) 00:00:00 of Me dicine Influenza 2010-02-28 Completed [facility] (Preservative Free) 00:00:00 of Me dicine Vital Signs Vital Name Observation Time Observation Value Comments Source WEIGHT 2020-08-10 17:12:00 80.1 kg WEIGHT 2020-08-10 14:11:00 82.5 kg HEIGHT 2020-08-06 23:13:00 154.9 cm WEIGHT 2020-08-06 23:13:00 79.379 kg WEIGHT 2020-08-10 17:12:00 80.1 kg WEIGHT 2020-08-10 14:11:00 82.5 kg HEIGHT 2020-08-06 23:13:00 154.9 cm WEIGHT 2020-08-06 23:13:00 79.379 kg Body height 2020-01-22 15:42:00 154.9 cm [facility] Body weight 2020-01-22 15:42:00 78.926 kg [facility] 2020-01-22 15:42:00 32.88 kg/m2 [facility] Body height 2020-01-22 15:42:00 154.9 cm [facility] Body weight 2020-01-22 15:42:00 78.926 kg [facility] 2020-01-22 15:42:00 32.88 kg/m2 [facility] Body height 2019-12-25 15:30:00 154.9 cm [facility] Body weight 2019-12-25 15:30:00 78.926 kg [facility] 2019-12-25 15:30:00 32.88 kg/m2 [facility] Body height 2019-12-25 15:30:00 154.9 cm [facility] Body weight 2019-12-25 15:30:00 78.926 kg [facility] 2019-12-25 15:30:00 32.88 kg/m2 [facility] Body height 2019-11-27 14:00:00 154.9 cm [facility] Body weight 2019-11-27 14:00:00 78.926 kg [facility] 2019-11-27 14:00:00 32.88 kg/m2 [facility] Body height 2019-11-27 14:00:00 154.9 cm [facility] Body weight 2019-11-27 14:00:00 78.926 kg [facility] BMI 2019-11-27 14:00:00 32.88 kg/m2 [facility] Body height 2019-11-13 21:22:00 154.9 cm [facility] Body weight 2019-11-13 21:22:00 78.926 kg [facility] BMI 2019-11-13 21:22:00 32.88 kg/m2 [facility] Body height 2019-11-13 21:22:00 154.9 cm [facility] Body weight 2019-11-13 21:22:00 78.926 kg [facility] BMI 2019-11-13 21:22:00 32.88 kg/m2 [facility] HEIGHT 2019-11-04 00:00:00 156 cm WEIGHT 2019-11-04 00:00:00 85.004 kg Procedures Procedure Date / Time Performing Clinician Source Performed AUTHORIZATION FOR 2020-01-30 06:01:00 Doctor Unassigned, No [facility] Name Medical Branch MEDICAL 2019-05-23 06:01:00 [facility] Branch AUTHORIZATION FOR 2019-05-12 06:01:00 Doctor Unassigned, No Univ [facility] RELEASE OF [facility] Branch Plan of Care Planned Activity Planned Date Details Comments Source Future Scheduled ORT - XR SHOULDER Ordered: 11/13/2019 [facility] Test BILAT 4V (CHARGE of Medicine ONLY) [code = 35545] Future Scheduled ORT - XR SHOULDER Ordered: 12/25/2019 [facility] Test BILAT 4V (CHARGE of Medicine ONLY) [code = 57403] Future Scheduled COLON CANCER [facility] ege Test SCREENING: of Medicine COLONOSCOPY [code = COLON CANCER SCREENING: COLONOSCOPY] Future Scheduled MAMMOGRAM ANNUAL [facility] Test [code = MAMMOGRAM of Medicin e ANNUAL] Future Scheduled TETANUS SHOT [facility] Test (ADULT) [code = of Medicine TETANUS SHOT (ADULT)] Future Scheduled Diabetic foot [facility] Test examination of Medicine (regime/therapy) [code = 750279513] Future Scheduled ANNUAL DIABETIC [facility] RETINOPATHY of Medicine SCREENING [code = ANNUAL DIABETIC RETINOPATHY SCREENING] Future Scheduled BMI FOLLOW UP PLAN [employer] Test [code = BMI FOLLOW of Medici ne UP PLAN] Future Scheduled HEPATITIS C [facility] Test SCREENING [code = of Medicin e HEPATITIS C SCREENING] Future Scheduled HIV SCREENING [code [facility] Test = HIV SCREENING] of Medicine Future Scheduled COLON CANCER [facility] Test SCREENING: of Medicine COLONOSCOPY [code = COLON CANCER SCREENING: COLONOSCOPY] Future Scheduled CERVICAL CANCER [facility] Test SCREENING 3 YEAR of Medicine FOLLOW UP [code = CERVICAL CANCER SCREENING 3 YEAR FOLLOW UP] Future Scheduled MEDICARE AWV [facility] Test (Initial) [code = of Medicin e MEDICARE AWV (Initial)] Future Scheduled ZOSTER VACCINE (1 [facility] Test of 2) [code = of Medicine ZOSTER VACCINE (1 of 2)] Future Scheduled FLU VACCINE > 6 [facility] Test MONTHS [code = FLU of Medici ne VACCINE > 6 MONTHS] Future Scheduled MAMMOGRAM ANNUAL [facility] Test [code = MAMMOGRAM of Medicin e ANNUAL] Future Scheduled TETANUS SHOT [facility] Test (ADULT) [code = of Medicine TETANUS SHOT (ADULT)] Future Scheduled BMI FOLLOW UP PLAN [facility] Test [code = BMI FOLLOW of Medici ne UP PLAN] Future Scheduled ORT - XR SHOULDER Ordered: 01/22/2020 [facility] Test BILAT 4V (CHARGE of Medicine ONLY) [code = 08762] Future Scheduled ORT - XR ELBOW LEFT Ordered: 01/22/20 20 [facility] Test 3V (CHARGE ONLY) of Medicine [code = 30795] Future Scheduled COLON CANCER [facility] Test SCREENING: of Medicine COLONOSCOPY [code = COLON CANCER SCREENING: COLONOSCOPY] Future Scheduled MAMMOGRAM ANNUAL [facility] Test [code = MAMMOGRAM of Medicin e ANNUAL] Future Scheduled TETANUS SHOT [facility] Test (ADULT) [code = of Medicine TETANUS SHOT (ADULT)] Future Scheduled Diabetic foot [facility] Test examination of Medicine (regime/therapy) [code = [id number]] Future Scheduled ANNUAL DIABETIC [facility] Test RETINOPATHY of Medicine SCREENING [code = ANNUAL DIABETIC RETINOPATHY SCREENING] Future Scheduled BMI FOLLOW UP PLAN [facility] Test [code = BMI FOLLOW of Medici ne UP PLAN] Future Scheduled HEPATITIS C [facility] Test SCREENING [code = of Medicin e HEPATITIS C SCREENING] Future Scheduled HEPATITIS C [facility] Test SCREENING [code = of Medicin e HEPATITIS C SCREENING] Future Scheduled HIV SCREENING [code [facility] Test = HIV SCREENING] of Medicine Future Scheduled CERVICAL CANCER [facility] Test SCREENING 3 YEAR of Medicine FOLLOW UP [code = CERVICAL CANCER SCREENING 3 YEAR FOLLOW UP] Future Scheduled MEDICARE AWV [facility] Test (Initial) [code = of Medicin e MEDICARE AWV (Initial)] Future Scheduled ZOSTER VACCINE (1 [facility] Test of 2) [code = of Medicine ZOSTER VACCINE (1 of 2)] Future Scheduled FLU VACCINE > 6 Postponed from [facility] Test MONTHS [code = FLU 10/25/2019 of Medici ne VACCINE > 6 MONTHS] (Postpone Reason: Patient declined today) Future Scheduled HIV SCREENING [code [facility] Test = HIV SCREENING] of Medicine Future Scheduled CERVICAL CANCER [facility] Test SCREENING 3 YEAR of Medicine FOLLOW UP [code = CERVICAL CANCER SCREENING 3 YEAR FOLLOW UP] Future Scheduled MEDICARE AWV [facility] Test (Initial) [code = of Medicin e MEDICARE AWV (Initial)] Future Scheduled ZOSTER VACCINE (1 [facility] Test of 2) [code = of Medicine ZOSTER VACCINE (1 of 2)] Future Scheduled FLU VACCINE > 6 [facility] Test MONTHS [code = FLU of Medici ne VACCINE > 6 MONTHS] Future Scheduled ORT - XR SHOULDER Ordered: 11/27/2019 [facility] Test BILAT 4V (CHARGE of Medicine ONLY) [code = 65622] Future Scheduled COLON CANCER [facility] Test SCREENING: of Medicine COLONOSCOPY [code = COLON CANCER SCREENING: COLONOSCOPY] Future Scheduled MAMMOGRAM ANNUAL [facility] Test [code = MAMMOGRAM of Medicin e ANNUAL] Future Scheduled TETANUS SHOT [facility] Test (ADULT) [code = of Medicine TETANUS SHOT (ADULT)] Future Scheduled Diabetic foot [facility] Test examination of Medicine (regime/therapy) [code = [id number]] Future Scheduled ANNUAL DIABETIC [facility] Test RETINOPATHY of Medicine SCREENING [code = ANNUAL DIABETIC RETINOPATHY SCREENING] Future Scheduled BMI FOLLOW UP PLAN [employer] Test [code = BMI FOLLOW of Medici ne UP PLAN] Future Scheduled HEPATITIS C [facility] Test SCREENING [code = of Medicin e HEPATITIS C SCREENING] Future Scheduled HIV SCREENING [code [facility] Test = HIV SCREENING] of Medicine Future Scheduled CERVICAL CANCER [facility] C [facility] Test SCREENING 3 YEAR of Medicine FOLLOW UP [code = CERVICAL CANCER SCREENING 3 YEAR FOLLOW UP] Future Scheduled MEDICARE AWV [facility] Test (Initial) [code = of Medicin e MEDICARE AWV (Initial)] Future Scheduled ZOSTER VACCINE (1 [facility] Test of 2) [code = of Medicine ZOSTER VACCINE (1 of 2)] Future Scheduled FLU VACCINE > 6 [facility] Test MONTHS [code = FLU of Medici ne VACCINE > 6 MONTHS] Future Scheduled CT SHOULDER RIGHT 1 Occurrences [facility] Test WO CONTRAST [code = starting 11/13/2019 o f Medicine 37637] until 06/12/2020 Encounters Start End Encounter Admission Attending Care Care Encounter Source Date/Time Date/Time Type Type Clinicians Facility Department ID 2021-05-12 Outpatient [facility] [id number] [place] 12:08:24 [facility] 2021-04-22 Outpatient [facility] [id number] [place] 15:16:49 [facility] 2021-04-20 [facility] [id number] 12:32:19 [place] [address] [facility] 2021-04-20 Out[facility], [facility] [id number] 12:22:07 Jose 34576 [facility] 2021-04-20 Outpatient [facility], [facility] [id number] 12:18:27 Jose 73531 [facility] 2021-04-20 [facility] [id number] 12:05:36 Jose 95943 [facility] 2021-04-20 [facility] [id number] 11:56:16 Jose 22724 [facility] 2021-04-20 Out[facility], [facility] [id number] 11:53:33 Jose 85907 [facility] 2021-04-20 [facility] [id number] 11:48:09 Jose 94387 [facility] 2021-04-20 [facility] [id number] 11:46:26 Jose 50959 [facility] 2021-04-20 [facility] [id number] 11:42:27 Jose 85624 [facility] 2021-04-20 Out[facility] [id number] 11:40:16 Jose 54213 [facility] 2021-04-20 Out[facility], [facility] [id number] 11:38:56 Jose 42546 [facility] 2021-04-20 [facility] [id number] 11:17:01 Jose 22329 [facility] 2021-04-20 Out[facility], [facility] [id number] 11:16:49 Jose 29884 [facility] 2021-04-20 Out[facility], [facility] [id number] 11:14:02 Jose 55114 [facility] 2021-01-01 Inpatient CHAR [facility] [id number] [facility] 20:20:01 Med 2021-05-18 2021-05-18 Telephone ElpidioANNIE [id number] [place] 00:00:00 00:00:00 Jose GOMEZ [id number] [facility] [id number] 2020-02-25 2020-02-25 Outpatient [facility] [id number] [place] 00:00:00 00:00:00 SAJI [facility] 2020-02-25 2020-02-25 Outpatient PALMAYADI, H [facility] [id number] [place] 00:00:00 00:00:00 SAJI 979 Method i 2020-01-30 2020-01-30 Orders Doctor TIANNA [id number] [facility] 00:00:00 00:00:00 Only Unassigned, TIMOTHY [id number] [facility] 4.2.7.2.686 Red as [phone] [address] 2020-01-30 2020-01-30 Orders Doctor TIANNA 1.2.840.114 [id number] 00:00:00 00:00:00 Only Unassigned, TIMOTHY 350.1.13.10 [place] 4.2.7.2.686 [id number] [facility] 2020-01-29 2020-01-29 Telephone YoanaRUST 1.2.840.[id number] [facility] 00:00:00 00:00:00 [place] 350.1.13.10 [place].2.[place] [phone] Ia dical nal [address] [place] [address] 2020-01-29 2020-01-29 [facility] 1.2.840.114 [id number] 00:00:00 00:00:00 [place] 350.1.13.10 [place] 4.2.7.2.686 Professio [phone] [address] 2020-01-22 2020-01-22 Office BRISEIDA Osullivan 1.2.840.114 [id number] [facility] 10:05:54 11:52:05 Visit Daiana Valerio AMBULATOR 350.1.13.21 College Y 0.2.7.2.686 of [phone] [facility] leticia 600 e 2020-01-22 2020-01-22 Office BRISEIDA Osullivan 1.2.840.114 [id number] 10:05:54 11:52:05 Visit Daiana Valerio AMBULATOR 350.1.13.21 Y 0.2.7.2.686 [id number] 600 2020-01-02 2020-01-02 Outpatient [facility] [id number]00 [facility] Outpati ent Clinics 2019-12-31 2019-12-31 Outpatient [facility] [id number] [facility] 00:[facility] 00:00:00 [facility] Outpati ent Clinics 2019-12-25 2019-12-25 Office BRISEIDA Osullivan 1.2.840.[id number] [place] [address] 09:47:44 11:32:45 Visit Daiana Valerio AMBULATOR 350.1.13.21 College Y 0.2.7.2.686 of [phone] Medi leticia 600 e 2019-12-25 2019-12-25 Office BRISEIDA Osullivan 1.2.840.114 [id number] [facility] 09:47:44 11:32:45 Visit Daiana Teodoro AMBULATOR 350.1.13.21 Y 0.2.7.2.686 [id number] 600 2019-11-27 2019-11-27 Office BRISEIDA Osullivan 1.2.840.[id number] [place] [address] 08:35:10 09:57:10 Visit Daiana Valerio AMBULATOR 350.1.13.21 College Y 0.2.7.2.686 of [id number] [facility] leticia 600 e 2019-11-27 2019-11-27 Office BRISEIDA Osullivan 1.2.840.114 [id number] 08:35:10 09:57:10 Visit Daiana Valerio AMBULATOR 350.1.13.21 Y 0.2.7.2.686 [id number] 600 2019-11-24 2019-11-24 [facility] [address] 09:17:00 09:17:00 [facility] Outpati ent Clinics 2019-11-13 2019-11-13 Office BRISEIDA Osullivan 1.2.840.[id number] [place] [address] 15:52:21 16:41:09 Visit Daiana Valerio AMBULATOR 350.1.13.21 College Y 0.2.7.2.686 of [phone] [facility] leticia 600 e 2019-11-13 2019-11-13 Office BRISEIDA Osullivan 1.2.840.114 [id number] 15:52:21 16:41:09 Visit Daiana Valerio AMBULATOR 350.1.13.21 Y 0.2.7.2.686 [id number] 600 2019-11-12 2019-11-12 [facility] [id number] 09:30:00 09:30:00 [facility] 2019-11-04 2019-11-04 Outpatient [facility] [id number] [facility] 00:00:00 00:00:00 2019-11-04 2019-11-04 Outpatient [facility] [id number] [facility] 00:00:00 00:00:00 2019-10-07 2019-10-07 Outpatient [facility] [id number] [facility] 00:00:00 00:00:00 2019-10-02 2019-10-02 [facility] [id number] 16:22:00 16:22:00 t [place] [employer] s - Drive [facility] ent Clinics 2019-10-02 2019-10-02 [facility] [id number] 10:15:00 10:15:00 t [place] [employer] s - Drive [facility] ent Clinics 2019-10-02 2019-10-02 [facility] [id number] 10:00:00 10:00:00 t [employer] s - Drive [facility] ent Clinics 2019-09-02 2019-09-02 Outpatient [facility] [id number] [facility] 00:00:00 00:00:00 [id number] 2019-09-02 2019-09-02 Outpatient EL [facility] [id number] [facility] 00:00:00 00:00:00 2019-07-01 2019-07-01 [facility] [id number] 11:45:00 11:45:00 t [employer] s - Drive [facility] ent [facility] 2019-05-23 2019-05-23 Maurice WYNN 1.2.840.114 [id number] Univers 00:00:00 00:00:00 Only Unassigned, TMIOTHY 350.1.13.10 [facility] 4.2.7.2.686 Red as [phone] [address] 2019-05-22 2019-05-22 MARGUERITE Campbell 1.2.840.114 [id number] Univers 00:00:00 00:00:00 [place] 350.1.13.10 [place] [phone] Ia dical nal 092 [facility] 2019-05-12 2019-05-12 Orders Doctor TIANNA 1.2.840.114 [id number] Univers 00:00:00 00:00:00 Only Unassigned, TIMOTHY 350.1.13.10 [facility] 4.2.7.2.686 Red as [phone] [address] 2019-04-10 2019-04-10 [facility] [id number] 11:54:00 11:54:00 [employer] [facility] Outpati ent Clinics 2019-03-31 2019-03-31 [facility] [id number] 11:20:00 11:20:00 [facility] [employer] [facility] [employer] [facility] Outpati ent Clinics 2019-03-27 2019-03-27 [facility] [id number] 10:30:00 10:30:00 [facility] Medicine Outpati ent Clinics 2019-03-12 2019-03-12 [facility] [id number] 09:45:00 09:45:00 [facility] [employer] [facility] Results Test Description Test Time Test Comments Results Result Comments Source POCT-GLUCOSE METER 2020-08-13 11:15:00 Test Item Value Reference Range Interpretation Comme nts POC-GLUCOSE METER (BEAKER) 99 mg/dL 70-110 : TESTED AT [address] (test code = 1538) MATIAS KEYES [place] [id number]: Dehydrogenation Converter Helper/Techni daniel ID = [id number] for Raeann Roberson POCT-GLUCOSE [id number] 11:15:00 Test Item Value Reference Range Interpretation Comments POC-GLUCOSE METER 79 mg/dL 70-110 : Notified RN/MD: TESTED ([facility]) (test code = AT [address]) [place] [address]: Dehydrogenation Converter Helper/Techni daniel ID = [id number] for Smita Campuzano POCT-GLUCOSE [id number] 11:15:00 Test Item Value Reference Range Interpretation Comments POC-GLUCOSE METER 106 mg/dL 70-110 : TESTED A T SLSL 1317 (BEAKER) (test code [address] [facility], = 1538) [place] [address]: Dehydrogenation Converter Helper/Techni daniel ID = [id number] for Valentina Piña POCT-GLUCOSE [id number] 11:15:00 Test Item Value Reference Range Interpretation Comments POC-GLUCOSE METER 82 mg/dL 70-110 : TESTED A T SLSL 1317 (BEAKER) (test code = [address] [facility], 153) [place] [address]: Dehydrogenation Converter Helper/Techni daniel ID = [id number] for Raeann Lai POCT-GLUCOSE [id number] 11:15:00 Test Item Value Reference Range Interpretation Comments POC-GLUCOSE METER 88 mg/dL 70-110 : TESTED A T SLSL 1317 (BEAKER) (test code = [address] [facility], 1538) [place] [address]: Dehydrogenation Converter Helper/Techni daniel ID = [id number] for Raeann Lai POCT-GLUCOSE [id number] 11:15:00 Test Item Value Reference Range Interpretation Comments POC-GLUCOSE METER 83 mg/dL 70-110 : Notified RN/MD: TESTED ([facility]) (test code = AT [address]) [place] [address]: Dehydrogenation Converter Helper/Techni daniel ID = [id number] for Maria Teresa Charlton POCT-GLUCOSE [id number] 11:15:00 Test Item Value Reference Range Interpretation Comments POC-GLUCOSE METER 110 mg/dL 70-110 : TESTED A T SLSL 1317 (BEAKER) (test code [address], = 1538) [place] [address]: Dehydrogenation Converter Helper/Techni daniel ID = [id number] for Maria Teresa Charlton POCT-GLUCOSE [id number] 11:14:00 Test Item Value Reference Range Interpretation Comments POC-GLUCOSE METER 96 mg/dL 70-110 : TESTED A T SLSL 1317 (BEAKER) (test code = [address], 15[address]) [place] [address]: Dehydrogenation Converter Helper/Techni daniel ID = [id number] for Ali, Yaw POCT-GLUCOSE [id number] 11:14:00 Test Item Value Reference Range Interpretation Comments POC-GLUCOSE METER 97 mg/dL 70-110 : TESTED A T SLSL 1317 (BEAKER) (test code = [address], 1538) [place] [address]: Dehydrogenation Converter Helper/Techni daniel ID = [id number] for Ali, Yaw POCT-GLUCOSE [id number] 11:14:00 Test Item Value Reference Range Interpretation Comments POC-GLUCOSE METER 99 mg/dL 70-110 : TESTED A T SLSL 1317 (BEAKER) (test code = [address], 1538) [place] [address]: Dehydrogenation Converter Helper/Techni daniel ID = [id number] for Jennifer Pete POCT-GLUCOSE [id number] 11:14:00 Test Item Value Reference Range Interpretation Comments POC-GLUCOSE METER 91 mg/dL 70-110 : TESTED A T SLSL 1317 (BEAKER) (test code = [address], 1538) [place] [address]: Dehydrogenation Converter Helper/Techni daniel ID = [id number] for Nwad iufu, Kim POCT-GLUCOSE [id number] 11:14:00 Test Item Value Reference Range Interpretation Comments POC-GLUCOSE METER 75 mg/dL 70-110 : TESTED A T SLSL 1317 (BEAKER) (test code = [address], 1538) [place] [address]: Dehydrogenation Converter Helper/Techni daniel ID = [id number] for Estelle Serra SARS-COV2/RT-PCR ([facility])2020-08-10 16:15:00 Test Item Value Reference Range Interpretation Comments SARS-COV2/RT-PCR Negative Not Detected, Performanc e of the Xpert (test code = Negative, See Xpress [id number]) external report SARS-CoV-2/F poly/RSV test for linked test has only bee n established in nasopharyngeal swab specimens. Use of the Xpert Xpress SARS-CoV-2/Flu/ RSV test with other spec imen types has not b een assessed and pe rformance characteristics are unknown. As wi th any molecular test, mutations withi n the targeted geneti c regions identified by t he Xpert Xpress SARS-CoV-2/Flu/ RSV test could affect pr roman and/or probe bi nding resulting in fa ilure to detect the pres ence of virus or the vi isaura being detected less predictably.Neg ative results do not preclude SARS-CoV-2, Inf luenza A/B, or RSV inf ection and should not be used as the sole bas is for treatment or ot her patient managem ent decisions. Res ults from the Xpert Xpres s SARS-CoV-2/Flu/ RSV test should be corre lated with the clinic al history, epidem iological data, and other data available to th e clinician evalu ating the patient. Inval id test results may occ ur from improper specim en collection; preston lure to follow the cherrie mmended sample collecti on, handling, and s torage procedures; job hnical error. False ne gative results may occ ur if virus is presen t at levels below th e analytical limi t of detection (LOD: 131 copies/mL). Vi ral nucleic acid ma y persist in vivo, indepe ndent of virus viability . Detection of an alyte target(s) does not imply that the corres ponding virus(es) are i nfectious or are the caus ative agents for clin ical symptoms. Rece nt patient exposur e to FluMist or oth er live attenuated infl uenza vaccines may ca use inaccurate posi tive results.This te st has been authorized by FDA under an EUA fo r use by authorized labo ratories. This test is o nly authorized for the duration of the declaration lorena t circumstances e xist justifying the authorization o f emergency use o f in vitro diagnosti c tests for detection a nd/or diagnosis of CO VID-19 under Section 5 64(b)(1) of the Federal Food, Drug and Cosmet ic Act, 21 U.S.C. 360bbb-3(b)(1), unless the authorizati on is terminated or r evoked sooner.Fact She et for Healthcare Prov iders: https://www.[employer].I[employer]acial/ Documents/Xpert %20Xpress %17RORB-SeM-4-F poly-RSV/30 2-4508%20Rev.%2 0B%20HCP% 20Fact%20Sheet. pdfFact Sheet for Healt hcare Patients: https://www.[employer]/ Documents/Xpert %20Xpress %58VTOX-CkR-1-F poly-RSV/30 2-4507%20Rev.%2 0B%20Pati ent%20Fact%20Sh eet.pdf SARS-COV-2 SLSL Performed at:[facility] PERFORMING LAB [place] [id number] (test code = Aron Recinos [id number]) [place] [address] ph: [phone] RAD, CHEST, 1 VIEW, NON [id number] 15:49:00Reason for exam:->New HemodialysisShould this be performed at the bedside?->Yes [facility] : 1965 Sex: FFINAL REPORT CHEST AP PORTABLE SEMIERECT COMPARISON STUDY: 10/30/2018 History provided: Dialysis Radiographically normal-appearing heart and lungs. Tunneled dialysis catheter from right jugular approach with catheter tip at the cavoatrial junction. Signed: Junito Mayberry MDReport Verified Date/Time: 08/10/2020 15:49:39 Reading Location: [facility] Radiology Reading Room HEPATITIS B CORE ANTIBODY, [id number] 11:01:00 Test Item Value Reference Range Interpretation Comments HEPATITIS B CORE TOTAL ANTIBODY Nonreactive Nonreactive (BEAKER) (test code = 497) Dehydrogenation Converter Helper ID - BANDAR MCOMPREHENSIVE METABOLIC [id number] 05:59:00 Test Item Value Reference Range Interpretation Comments TOTAL PROTEIN 5.0 gm/dL 6.0-8.5 L (BEAKER) (test code = 770) ALBUMIN (BEAKER) 2.2 g/dL 3.5-5.0 L (test code = 1145) ALKALINE PHOSPHATASE 71 U/L 30-115 (BEAKER) (test code = 346) BILIRUBIN TOTAL 0.3 mg/dL 0.1-1.2 (BEAKER) (test code = 377) SODIUM (BEAKER) (test 137 meq/L 135-148 code = 381) POTASSIUM (BEAKER) 3.6 meq/L 3.6-5.5 (test code = 379) CHLORIDE (BEAKER) 101 meq/L 98-106 (test code = 382) CO2 (BEAKER) (test 24 meq/L 20-29 code = 355) BLOOD UREA NITROGEN 24 mg/dL 10-26 (BEAKER) (test code = 354) CREATININE (BEAKER) 10.03 mg/dL 0.50-1.20 H (test code = 358) GLUCOSE RANDOM 86 mg/dL 70-110 (BEAKER) (test code = 652) CALCIUM (BEAKER) 7.9 mg/dL 8.5-10.5 L (test code = 697) AST (SGOT) (BEAKER) 12 U/L 5-40 (test code = 353) ALT (SGPT) (BEAKER) 5 U/L 5-50 (test code = 347) EGFR (BEAKER) (test 5 mL/min/1.73 ESTIMAT ED GFR IS code = 1092) sq m NOT ACCURATE CREATININE CLEARANCE IN PREDICTING GLOMERULAR FILTRATION RATE . ESTIMATED GFR I S NOT APPLICABLE FOR DIALYSIS PATIEN TS. Dehydrogenation Converter Helper ID - LITOOperator ID - LITOOperator ID - LITOOperator ID - LITOOperator ID - LITOOperator ID - LITOOperator ID - LITOOperator ID - LITOOperator ID - LITOOperator ID - LITOOperator ID - LITOOperator ID - LITOOperator ID - LITOOperator ID - LITOOperator ID - LITOOperator ID - LITOOperator ID - L ITOOperator ID - LITOOperator ID - LITOCBC W/PLT COUNT & AUTO DIFFERENTIAL 2020-08-10 05:57:00 Test Item Value Reference Range Interpretation Comments WHITE BLOOD CELL COUNT (BEAKER) 7.7 K/ L 4.0-10.0 (test code = 775) RED BLOOD CELL COUNT (BEAKER) 2.63 M/ L 4.00-5.00 L (test code = 761) HEMOGLOBIN (BEAKER) (test code = 7.7 GM/DL 12.0-15.5 L 410) HEMATOCRIT (BEAKER) (test code = 24.0 % 36.0-46.0 L 411) MEAN CORPUSCULAR VOLUME (BEAKER) 91.3 fL 82.0-99.0 (test code = 753) MEAN CORPUSCULAR HEMOGLOBIN 29.3 pg 27.0-33.0 (BEAKER) (test code = 751) MEAN CORPUSCULAR HEMOGLOBIN CONC 32.1 GM/DL 32.0-36.0 (BEAKER) (test code = 752) RED CELL DISTRIBUTION WIDTH 15.9 % 12.0-15.0 H (BEAKER) (test code = 412) PLATELET COUNT (BEAKER) (test 440 K/CU MM 150-430 H code = 756) MEAN PLATELET VOLUME (BEAKER) 9.5 fL 6.0-11.5 (test code = 754) NUCLEATED RED BLOOD CELLS 0 /100 WBC 0-0 (BEAKER) (test code = 413) NEUTROPHILS RELATIVE PERCENT 65 % (BEAKER) (test code = 429) LYMPHOCYTES RELATIVE PERCENT 20 % (BEAKER) (test code = 430) MONOCYTES RELATIVE PERCENT 10 % (BEAKER) (test code = 431) EOSINOPHILS RELATIVE PERCENT 3 % (BEAKER) (test code = 432) BASOPHILS RELATIVE PERCENT 1 % (BEAKER) (test code = 437) NEUTROPHILS ABSOLUTE COUNT 5.05 K/ L 1.80-8.00 (BEAKER) (test code = 670) LYMPHOCYTES ABSOLUTE COUNT 1.56 K/ L 1.48-4.50 (BEAKER) (test code = 414) MONOCYTES ABSOLUTE COUNT (BEAKER) 0.76 K/ L 0.00-1.30 (test code = 415) EOSINOPHILS ABSOLUTE COUNT 0.26 K/ L 0.00-0.50 (BEAKER) (test code = 416) BASOPHILS ABSOLUTE COUNT (BEAKER) 0.07 K/ L 0.00-0.20 (test code = 417) IMMATURE GRANULOCYTES-RELATIVE 0 % 0-0 PERCENT (BEAKER) (test code = 2801) HEPATITIS B SURFACE [id number] 17:24:00 Test Item Value Reference Range Interpretation Comments HEPATITIS B SURFACE ANTIGEN (2) Nonreactive Nonreactive (BEAKER) (test code = 2585) Dehydrogenation Converter Helper ID - MAYELIN, TUNNELED CATHETER [id number] 10:44:00Reason for Central Line/PICC?->Need for hemodialysis accessReason for exam:->Hemodialysis [facility] : 1965 Sex: FFINAL REPORT Tunneled dialysis catheter insertion.History: Renal failure. Modality: Sonography and fluoroscopy.Sedation: Moderate sedation was administered. 1 mg of Versed and 50 mcg of fentanyl IV was used formoderate sedation monitored under my direction. Total intra-service time of sedation was 30 minutes. The patient's vital signs were monitored throughout the procedure and recorded in the patient's medical record by the nurse. Pharmacy Sales Assistant: Rigoberto Beckham M.D. File Clerk: None. Approach: Right internal jugular vein Estimated blood loss: < 5 cc. Specimen: None. Fluoroscopy Time: 1 minute and 5 secondsDose (Ka,r): 4 mGy. Technique: Informed written consent was obtained. Discussion of risks, benefits, and alternatives were made with the patient. The patient expressed understanding and agreed to proceed. All elements maximal sterile barrier technique was utilized for this procedure, including utilization of sterile scrub solution for skin prep, a large sterile sheet to cover the areas of the patient that were not prepped, and hand hygiene, mask, head covering, and sterile gown for performing radiologist and scrub technologist. The skin was anesthetized with 2% lidocaine.Ultrasound evaluation showed a patent and compressible right internal jugular vein, which was punctured under direct real-time ultrasound guidance with a micropuncture needle. An ultrasound image was saved to PACS. A 0.018 inch wire was placed through the needle into the right atrium. A 4 Stateless micropuncture sheath was placed and a 0.035 wire was advanced into the IVC. A subcutaneous tunnel was created in the right anterior chest wall by blunt dissection. A 19 cm tip to cuff 15.5 Stateless Duraflow 2 catheter was brought through the tunnel. The vessel tract was serially dilated. A peel-away sheath was placed in the right IJ vein and the catheter was advanced through the sheath, with its distal tip terminating in the superior right atrium. The peel-away sheath was removed. The ports were flushed and aspirated easily following placement. The catheter was sutured to the skin to secure its placement. The small jugular incision site was closed using Dermabond. Vital signs were monitored throughout the procedure by a nurse, and remained stable. The patient tolerated the procedure well and left the department in the same condition. Results: Spot radiograph of the chest demonstrates the new dialysis catheter to lie in the expected position with its tip overlying the superior right atrium. Impression: Successful, uncomplicated placement of a right internal jugular tunneled dialysis catheter using sonographic and fluoroscopic guidance and conscious sedation. Signed: Rigoberto Beckham MDReport Verified Date/Time: 08/09/2020 10:44:42 Reading Location: [facility] Radiology Reading Room BASIC METABOLIC [id number] 04:46:00 Test Item Value Reference Range Interpretation Comments SODIUM (BEAKER) 134 meq/L 135-148 L (test code = 381) POTASSIUM (BEAKER) 3.6 meq/L 3.6-5.5 (test code = 379) CHLORIDE (BEAKER) 98 meq/L 98-106 (test code = 382) CO2 (BEAKER) (test 21 meq/L 20-29 code = 355) BLOOD UREA NITROGEN 39 mg/dL 10-26 H (BEAKER) (test code = 354) CREATININE (BEAKER) 13.56 mg/dL 0.50-1.20 H (test code = 358) GLUCOSE RANDOM 75 mg/dL 70-110 (BEAKER) (test code = 652) CALCIUM (BEAKER) 7.8 mg/dL 8.5-10.5 L (test code = 697) EGFR (BEAKER) (test 3 mL/min/1.73 ESTIMAT ED GFR IS code = 1092) sq m NOT ACCURATE CREATININE CLEARANCE IN PREDICTING GLOMERULAR FILTRATION RATE . ESTIMATED GFR I S NOT APPLICABLE FOR DIALYSIS PATIEN TS. Dehydrogenation Converter Helper ID - [id number] ID - [id number] ID - [id number] ID - [id number] ID - [id number] ID - [id number] ID - GYBU03Mrotcxxw ID - [id number] ID - [id number] ID - [id number] ID - [id number] ID - [id number] ID - [id number] W/PLT COUNT & AUTO [id number] 04:27:00 Test Item Value Reference Range Interpretation Comments WHITE BLOOD CELL COUNT (BEAKER) 9.4 K/ L 4.0-10.0 (test code = 775) RED BLOOD CELL COUNT (BEAKER) 2.77 M/ L 4.00-5.00 L (test code = 761) HEMOGLOBIN (BEAKER) (test code = 8.3 GM/DL 12.0-15.5 L 410) HEMATOCRIT (BEAKER) (test code = 25.0 % 36.0-46.0 L 411) MEAN CORPUSCULAR VOLUME (BEAKER) 90.3 fL 82.0-99.0 (test code = 753) MEAN CORPUSCULAR HEMOGLOBIN 30.0 pg 27.0-33.0 (BEAKER) (test code = 751) MEAN CORPUSCULAR HEMOGLOBIN CONC 33.2 GM/DL 32.0-36.0 (BEAKER) (test code = 752) RED CELL DISTRIBUTION WIDTH 15.6 % 12.0-15.0 H (BEAKER) (test code = 412) PLATELET COUNT (BEAKER) (test 532 K/CU MM 150-430 H code = 756) MEAN PLATELET VOLUME (BEAKER) 8.8 fL 6.0-11.5 (test code = 754) NUCLEATED RED BLOOD CELLS 0 /100 WBC 0-0 (BEAKER) (test code = 413) NEUTROPHILS RELATIVE PERCENT 64 % (BEAKER) (test code = 429) LYMPHOCYTES RELATIVE PERCENT 23 % (BEAKER) (test code = 430) MONOCYTES RELATIVE PERCENT 8 % (BEAKER) (test code = 431) EOSINOPHILS RELATIVE PERCENT 4 % (BEAKER) (test code = 432) BASOPHILS RELATIVE PERCENT 1 % (BEAKER) (test code = 437) NEUTROPHILS ABSOLUTE COUNT 5.98 K/ L 1.80-8.00 (BEAKER) (test code = 670) LYMPHOCYTES ABSOLUTE COUNT 2.16 K/ L 1.48-4.50 (BEAKER) (test code = 414) MONOCYTES ABSOLUTE COUNT (BEAKER) 0.72 K/ L 0.00-1.30 (test code = 415) EOSINOPHILS ABSOLUTE COUNT 0.41 K/ L 0.00-0.50 (BEAKER) (test code = 416) BASOPHILS ABSOLUTE COUNT (BEAKER) 0.08 K/ L 0.00-0.20 (test code = 417) IMMATURE GRANULOCYTES-RELATIVE 0 % 0-0 PERCENT (BEAKER) (test code = 2801) POCT-GLUCOSE [id number] 06:14:00 Test Item Value Reference Range Interpretation Comments POC-GLUCOSE METER 76 mg/dL 70-110 : TESTED A T SLSL 1317 (BEAKER) (test code = [address], 1538) FORMERLY NAMED [facility] 77 478: Dehydrogenation Converter Helper/Techni daniel ID = [id number] for Tashia Rodney HEMOGLOBIN [id number] 05:40:00 Test Item Value Reference Range Interpretation Comments HEMOGLOBIN A1C (BEAKER) (test code = 4.4 % 4.3-6.1 368) Dehydrogenation Converter Helper ID - [id number] 20:58:00 Test Item Value Reference Range Interpretation Comments POC-GLUCOSE METER 118 mg/dL 70-110 H : TESTED A T SLSL 1317 (BEAKER) (test code [address], = 1538) FORMERLY NAMED [facility] 77 478: Dehydrogenation Converter Helper/Techni daniel ID = [id number] for Tashia Rodney VANCOMYCIN LEVEL, [id number] 08:10:00 Test Item Value Reference Range Interpretation Comments VANCOMYCIN TROUGH (BEAKER) (test 17.0 ug/mL 10.0-20.0 code = 522) Dehydrogenation Converter Helper ID - [id number] 05:26:00 Test Item Value Reference Range Interpretation Comments TRIGLYCERIDES (BEAKER) (test code = 55 mg/dL 540) CHOLESTEROL (BEAKER) (test code = 87 mg/dL 631) HDL CHOLESTEROL (BEAKER) (test code 23 mg/dL = 976) LDL CHOLESTEROL CALCULATED (BEAKER) 53 mg/dL (test code = 633) Triglyceride Reference Range: Low Risk <150 Borderline 150-199 High Risk 200-499 Very High Risk >=500Cholesterol Reference Range: Low Risk <200 Borderline 200-239 High Risk >240HDL Cholesterol Reference Range: Low Risk >=60 High Risk <40LDL Cholesterol Reference Range: Optimal <100 Near Optimal 100-129 Borderline 130-159 High 160-189 Very High >=190 Dehydrogenation Converter Helper ID - [id number] ID - [id number] ID - [id number] METABOLIC [id number] 05:26:00 Test Item Value Reference Range Interpretation Comments SODIUM (BEAKER) 133 meq/L 135-148 L (test code = 381) POTASSIUM (BEAKER) 3.6 meq/L 3.6-5.5 (test code = 379) CHLORIDE (BEAKER) 95 meq/L 98-106 L (test code = 382) CO2 (BEAKER) (test 24 meq/L 20-29 code = 355) BLOOD UREA NITROGEN 39 mg/dL 10-26 H (BEAKER) (test code = 354) CREATININE (BEAKER) 11.75 mg/dL 0.50-1.20 H (test code = 358) GLUCOSE RANDOM 81 mg/dL 70-110 (BEAKER) (test code = 652) CALCIUM (BEAKER) 7.9 mg/dL 8.5-10.5 L (test code = 697) EGFR (BEAKER) (test 4 mL/min/1.73 ESTIMAT ED GFR IS code = 1092) sq m NOT ACCURATE CREATININE CLEARANCE IN PREDICTING GLOMERULAR FILTRATION RATE . ESTIMATED GFR I S NOT APPLICABLE FOR DIALYSIS PATIEN TS. Dehydrogenation Converter Helper ID - [id number] ID - [id number] ID - [id number] ID - [id number] ID - [id number] ID - [id number] ID - [id number] ID - [id number] ID - [id number] ID - [id number] 05:18:00 Test Item Value Reference Range Interpretation Comments MAGNESIUM (BEAKER) (test code = 2.0 mg/dL 1.5-3.0 627) Dehydrogenation Converter Helper ID - [id number] ID - [id number] ID - [id number] ID - [id number] 05:16:00 Test Item Value Reference Range Interpretation Comments PHOSPHORUS (BEAKER) (test code = 4.8 mg/dL 2.5-4.5 H 604) Dehydrogenation Converter Helper ID - [id number] W/PLT COUNT & AUTO [id number] 05:10:00 Test Item Value Reference Range Interpretation Comments WHITE BLOOD CELL COUNT (BEAKER) 8.4 K/ L 4.0-10.0 (test code = 775) RED BLOOD CELL COUNT (BEAKER) 2.59 M/ L 4.00-5.00 L (test code = 761) HEMOGLOBIN (BEAKER) (test code = 7.6 GM/DL 12.0-15.5 L 410) HEMATOCRIT (BEAKER) (test code = 23.1 % 36.0-46.0 L 411) MEAN CORPUSCULAR VOLUME (BEAKER) 89.2 fL 82.0-99.0 (test code = 753) MEAN CORPUSCULAR HEMOGLOBIN 29.3 pg 27.0-33.0 (BEAKER) (test code = 751) MEAN CORPUSCULAR HEMOGLOBIN CONC 32.9 GM/DL 32.0-36.0 (BEAKER) (test code = 752) RED CELL DISTRIBUTION WIDTH 15.2 % 12.0-15.0 H (BEAKER) (test code = 412) PLATELET COUNT (BEAKER) (test 467 K/CU MM 150-430 H code = 756) MEAN PLATELET VOLUME (BEAKER) 9.2 fL 6.0-11.5 (test code = 754) NUCLEATED RED BLOOD CELLS 0 /100 WBC 0-0 (BEAKER) (test code = 413) NEUTROPHILS RELATIVE PERCENT 71 % (BEAKER) (test code = 429) LYMPHOCYTES RELATIVE PERCENT 16 % (BEAKER) (test code = 430) MONOCYTES RELATIVE PERCENT 8 % (BEAKER) (test code = 431) EOSINOPHILS RELATIVE PERCENT 3 % (BEAKER) (test code = 432) BASOPHILS RELATIVE PERCENT 1 % (BEAKER) (test code = 437) NEUTROPHILS ABSOLUTE COUNT 5.97 K/ L 1.80-8.00 (BEAKER) (test code = 670) LYMPHOCYTES ABSOLUTE COUNT 1.38 K/ L 1.48-4.50 L (BEAKER) (test code = 414) MONOCYTES ABSOLUTE COUNT (BEAKER) 0.68 K/ L 0.00-1.30 (test code = 415) EOSINOPHILS ABSOLUTE COUNT 0.26 K/ L 0.00-0.50 (BEAKER) (test code = 416) BASOPHILS ABSOLUTE COUNT (BEAKER) 0.07 K/ L 0.00-0.20 (test code = 417) IMMATURE GRANULOCYTES-RELATIVE 0 % 0-0 PERCENT (BEAKER) (test code = 2801) PROTHROMBIN [id number] 04:59:00 Test Item Value Reference Range Interpretation Comments PROTIME (BEAKER) 13.2 seconds 9.3-12.0 H Final Infor mation (test code = 759) (Auto Outp ut) INR (BEAKER) (test 1.20 See_Comment Final Inf ormation code = 370) (Auto Output) [Automated mess age] The system [employer] generated this result transmitted ref erence range: <=5.90. The reference range was not used to int erpret this result as normal/abnormal . RECOMMENDED COUMADIN/WARFARIN INR THERAPY RANGESSTANDARD DOSE: 2.0 - 3.0 Includes: PROPHYLAXIS forvenous thrombosis, systemic embolization; TREATMENT for venous thrombosis and/or pulmonary embolus.HIGH RISK: Target INR is 2.5-3.5 for patients with mechanical heart valves.HEMOGLOBIN [id number] 04:50:00 Test Item Value Reference Range Interpretation Comments HEMOGLOBIN A1C (BEAKER) (test code = 4.5 % 4.3-6.1 368) Dehydrogenation Converter Helper ID - [id number] FLUID CULTURE + GRAM [id number] 12:18:00 Test Item Value Reference Range Interpretation Comments CULTURE (BEAKER) (test No growth code = 1095) GRAM STAIN RESULT <1+ White blood cells (BEAKER) (test code = seen 1123) GRAM STAIN RESULT No organisms seen (BEAKER) (test code = 09879) BLOOD [id number] 08:01:00 Test Item Value Reference Range Interpretation Comments CULTURE (BEAKER) (test No growth in 5 days code = 1095) BLOOD [id number] 08:01:00 Test Item Value Reference Range Interpretation Comments CULTURE (BEAKER) (test No growth in 5 days code = 1095) POCT-GLUCOSE [id number] 14:58:00 Test Item Value Reference Range Interpretation Comments POC-GLUCOSE METER 101 mg/dL 70-110 TESTED AT [place] [address] ([facility]) (test code = [facility] 1538) [address] HEMOGLOBIN AND [id number] 12:19:00 Test Item Value Reference Range Interpretation Comments HEMOGLOBIN (BEAKER) (test code = 7.5 GM/DL 11.2-15.7 L 410) HEMATOCRIT ([facility]) (test code = 23.1 % 34.1-44.9 L 411) POCT-GLUCOSE [id number] 08:37:00 Test Item Value Reference Range Interpretation Comments POC-GLUCOSE METER 168 mg/dL 70-110 H TESTED AT [place] [address] ([facility]) (test code = [facility] 1538) [address] LACTIC ACID, [id number] 07:04:00 Test Item Value Reference Range Interpretation Comments LACTATE BLOOD VENOUS 1.9 mmol/L 0.5-2.2 Specime n slightly (2) ([facility]) (test hemolyzed code = 2872) POCT-GLUCOSE [id number] 21:25:00 Test Item Value Reference Range Interpretation Comments POC-GLUCOSE METER 102 mg/dL 70-110 TESTED AT [place] [address] ([facility]) (test code = [facility] 1538) [address] POCT-GLUCOSE [id number] 18:50:00 Test Item Value Reference Range Interpretation Comments POC-GLUCOSE METER 91 mg/dL 70-110 TESTED AT [facility] 67 (BEAKER) (test code = [facility] [address] 1538) POCT-GLUCOSE [id number] 13:23:00 Test Item Value Reference Range Interpretation Comments POC-GLUCOSE METER 114 mg/dL 70-110 H TESTED AT [place] [address] (BEAKER) (test code = [facility] 1538) [address] POCT-GLUCOSE [id number] 09:11:00 Test Item Value Reference Range Interpretation Comments POC-GLUCOSE METER 131 mg/dL 70-110 H TESTED AT [place] [address] (BEAKER) (test code = [facility] 1538) [address] BASIC METABOLIC [id number] 06:45:00 Test Item Value Reference Range Interpretation [...] S NOT APPLICABLE FOR DIALYSIS PATIEN TS. [id number] 06:40:00 Test Item Value Reference Range Interpretation Comments PHOSPHORUS (BEAKER) (test code = 6.5 mg/dL 2.3-4.7 H 604) [id number] 06:40:00 Test Item Value Reference Range Interpretation Comments MAGNESIUM (BEAKER) (test code = 1.9 mg/dL 1.6-2.6 627) LACTIC ACID, [id number] 06:12:00 Test Item Value Reference Range Interpretation Comments LACTATE BLOOD VENOUS (2) (BEAKER) 2.3 mmol/L 0.5-2.2 H (test code = 2872) CBC W/PLT COUNT & AUTO [id number] 06:05:00 Test Item Value Reference Range Interpretation [...] PERCENT (BEAKER) (test code = 2801) POCT-GLUCOSE [id number] 21:04:00 Test Item Value Reference Range Interpretation Comments POC-GLUCOSE METER 135 mg/dL 70-110 H TESTED AT [facility] 67 [facility] (test code = [facility] 1538) [address] [id number] 17:08:00 Test Item Value Reference Range Interpretation Comments FERRITIN (BEAKER) (test code = 1367 ng/mL 5-275 H 361) POCT-GLUCOSE [id number] 17:00:00 Test Item Value Reference Range Interpretation Comments POC-GLUCOSE METER 137 mg/dL 70-110 H TESTED AT [facility] 6720 [facility] (test code = [facility] 1538) [address] IRON, TIBC, % SAT. (WITHOUT FERRITIN)2018-10-30 16:48:00 Test Item Value Reference Range Interpretation Comments IRON (BEAKER) (test code = 547) 53.0 ug/dL 40.0-160.0 TOTAL IRON BINDING CAPACITY 135 ug/dL 250-450 L (BEAKER) (test code = 769) IRON % SATURATION (2) (BEAKER) 39 % 20-55 (test code = 2590) RETICULOCYTE [id number] 16:47:00 Test Item Value Reference Range Interpretation Comments RETICULOCYTE COUNT PCT (BEAKER) (test 2.1 % 0.5-1.7 H code = 575) LACTIC ACID, [id number] 14:17:00 Test Item Value Reference Range Interpretation Comments LACTATE BLOOD VENOUS (2) (BEAKER) 1.7 mmol/L 0.5-2.2 (test code = 2872) HEMOGLOBIN AND [id number] 14:03:00 Test Item Value Reference Range Interpretation Comments HEMOGLOBIN (BEAKER) (test code = 6.4 GM/DL 11.2-15.7 L 410) HEMATOCRIT (BEAKER) (test code = 20.2 % 34.1-44.9 L 411) POCT-GLUCOSE [id number] 11:11:00 Test Item Value Reference Range Interpretation Comments POC-GLUCOSE METER 143 mg/dL 70-110 H TESTED AT [facility] 6720 (BEAKER) (test code = [place] 1538) [address] [id number] 03:47:00 Test Item Value Reference Range Interpretation Comments PROCALCITONIN (BEAKER) (test code 0.76 ng/mL <0.05 H = 3036) SEPSIS RISK (ng/mL)Low: 0.05-0.50Intermediate: 0.51-2.00High: >=[id number] 02:58:00 Test Item Value Reference Range Interpretation Comments PHOSPHORUS (BEAKER) (test code = 6.8 mg/dL 2.3-4.7 H 604) [id number] 02:58:00 Test Item Value Reference Range Interpretation Comments MAGNESIUM (BEAKER) (test code = 1.9 mg/dL 1.6-2.6 627) LACTIC ACID, [id number] 02:53:00 Test Item Value Reference Range Interpretation Comments LACTATE BLOOD VENOUS 1.6 mmol/L 0.5-2.2 Specime n slightly (2) (BEAKER) (test hemolyzed code = 2872) RAD, CHEST, 1 VIEW, NON [id number] 02:31:00Reason for exam:->altered mental statusShould this be [...] intact. IMPRESSION: No acute cardiopulmonary abnormality. Signed: Sharmin Pleitez [facility] Verified Date/Time: 10/30/2018 02:31:36 OXYGEN SATURATION, [id number] 02:25:00 Test Item Value Reference Range Interpretation Comments O2 SATURATION (MEASURED) (BEAKER) 75.1 % (test code = 1455) If patient has internal jugular ( IJ) or subclavian central line or PICC line. Draw from distal port. Label as central venous oxygen.CBC W/PLT COUNT & AUTO [id number] 00:56:00 Test Item Value Reference Range Interpretation [...] (BEAKER) (test code = 2801) COMPREHENSIVE METABOLIC [id number] 00:46:00 Test Item Value Reference Range Interpretation [...] APPLICABLE FOR DIALYSIS PATIEN TS. LACTIC ACID, [id number] 00:27:00 Test Item Value Reference Range Interpretation Comments LACTATE BLOOD VENOUS (2) (BEAKER) 1.9 mmol/L 0.5-2.2 (test code = 2872) BLOOD GAS, [id number] 00:24:00 Test Item Value Reference Range Interpretation [...] (test code = 1819) 21.0 % POCT-GLUCOSE [id number] 23:54:00 Test Item Value Reference Range Interpretation Comments POC-GLUCOSE METER 249 mg/dL 70-110 H TESTED AT [facility] 6720 (BEAKER) (test code = [place] 1538) [address] BODY FLUID CELL COUNT WITH [id number] 21:57:00 Test Item Value Reference Range Interpretation [...] = 1 % 492) CONTAINER BODY FLUID ([facility]) EDTA Tube (test code = 2873) C. DIFFICILE GDH [id number] 10:06:00 Test Item Value Reference Range Interpretation Comments CDT TOXIN (test code Positive Negative A = [id number]) CDT GDH ANTIGEN Positive Negative A Confirms Beti stridium (test code = difficile-assoc iated [id number]) infection.First line therapy - oral Vancomycin. Co ntinue enteric isolati on until 72 hours after treatment is discontinued and symptoms have r esolved. Testing performed by [employer]. For GDH, published sensitivity of the assay is 98.7% compared to cytotoxicity testing. For Toxin AB, published sensitivity is 87.8% and specificity 99.4% compared to cytotoxicity testing.Verification of kit performance was done by the [facility] Microbiology Lab prior to clinical use.POCT-GLUCOSE [id number] 09:14:00 Test Item Value Reference Range Interpretation Comments POC-GLUCOSE METER 109 mg/dL 70-110 TESTED AT [facility] 6720 ([facility]) (test code = [place] 1538) [address] [id number] 08:46:00 Test Item Value Reference Range Interpretation Comments PROCALCITONIN (AKER) (test code 0.67 ng/mL <0.05 H = 3036) SEPSIS RISK (ng/mL)Low: 0.05-0.50Intermediate: 0.51-2.00High: >=2.01CBC W/PLT COUNT & AUTO [id number] 08:36:00 Test Item Value Reference Range Interpretation Comments WHITE BLOOD CELL COUNT (AKER) 11.1 K/ L 3.5-10.5 H (test code = 775) RED BLOOD CELL COUNT (AKER) 2.32 M/ L 3.93-5.22 L (test code = 761) HEMOGLOBIN (BEAKER) (test code = 7.4 GM/DL 11.2-15.7 L 410) HEMATOCRIT (AKER) (test code = 23.1 % 34.1-44.9 L 411) MEAN CORPUSCULAR VOLUME ([facility]) 99.6 fL 79.4-94.8 H (test code = [...] 0-1 PERCENT (BEAKER) (test code = 2801) VITAMIN [id number] 07:12:00 Test Item Value Reference Range Interpretation Comments VITAMIN B12 (BEAKER) (test code = 680 pg/mL 213-816 774) TSH/FREE T4 IF [id number] 07:12:00 Test Item Value Reference Range Interpretation Comments THYROID STIMULATING HORMONE 0.94 uIU/mL 0.35-4.94 (BEAKER) (test code = 772) OSMOLALITY, [id number] 07:06:00 Test Item Value Reference Range Interpretation Comments OSMOLALITY, SERUM (BEAKER) (test 296 mOsm/kg 275-295 H code = 615) BASIC METABOLIC [id number] 06:11:00 Test Item Value Reference Range Interpretation [...] S NOT APPLICABLE FOR DIALYSIS PATIEN TS. [id number] 06:05:00 Test Item Value Reference Range Interpretation Comments PHOSPHORUS (BEAKER) (test code = 7.4 mg/dL 2.3-4.7 H 604) [id number] 06:05:00 Test Item Value Reference Range Interpretation Comments MAGNESIUM (BEAKER) (test code = 2.0 mg/dL 1.6-2.6 627) HEPATIC FUNCTION [id number] 06:05:00 Test Item Value Reference Range Interpretation [...] (test code = 39 U/L 6-55 347) C-REACTIVE [id number] 06:05:00 Test Item Value Reference Range Interpretation Comments C-REACTIVE PROTEIN (BEAKER) (test 1.72 mg/dL 0.00-0.50 H code = 676) [id number] 05:56:00 Test Item Value Reference Range Interpretation Comments AMMONIA (BEAKER) (test code = 348) 16 mol/L 18-72 L RAD, CHEST, 1 VIEW, NON [id number] 21:14:00Reason for exam:->chest painIs the patient ?->UnknownShould this be performed at the [facility]?->YesFINAL REPORT Chest, 1 view. History: Chest pain Comparison: Plain radiographthe chest dated 01/15/2018.. Findings: The cardiomediastinal silhouette and pulmonary vasculature are within normal limits for a portable exam. The lungs are clear without evidence of consolidation or effusion. The soft tissues and osseous structures are intact. IMPRESSION: No acute cardiopulmonaryabnormality. Signed: [facility] Verified Date/Time: 10/28/2018 21:14:02 URINALYSIS [id number] 20:54:00 Test Item Value Reference Range Interpretation Comments RBC UA (BEAKER) (test code = 519) 1 /HPF WBC UA (BEAKER) (test code = 520) 10 /HPF SQUAMOUS EPITHELIAL (BEAKER) (test 5 /HPF code = 516) HYALINE CASTS (BEAKER) (test code = 2 /LPF 514) URINALYSIS WITH MICROSCOPIC IF [id number] 20:52:00 Test Item Value Reference Range Interpretation [...] SOURCE(BEAKER) (test code = 2795) BASIC METABOLIC [id number] 20:32:00 Test Item Value Reference Range Interpretation [...] S NOT APPLICABLE FOR DIALYSIS PATIEN TS. [id number] 20:29:00 Test Item Value Reference Range Interpretation Comments MAGNESIUM (BEAKER) (test code = 2.0 mg/dL 1.6-2.6 627) [id number] 20:29:00 Test Item Value Reference Range Interpretation Comments LIPASE (BEAKER) (test code = 749) 65 U/L 8-78 [id number] 20:10:00 Test Item Value Reference Range Interpretation [...] mechanical heart valves.CBC W/PLT COUNT & AUTO [id number] 20:05:00 Test Item Value Reference Range Interpretation [...] (test code = 2801) CT, BRAIN, WITHOUT [id number] 19:38:00Reason for exam:->ALTERED MENTAL STATUSReason for exam:->GENERALIZED [...] examination is recommended for further characterization. Signed: Kathia SkyMDReport Verified Date/Time: 10/28/2018 19:38:10 Reading Location: [facility] B1 C013V Neuro Reading Room HEMOGLOBIN [id number] 07:56:00 Test Item Value Reference Range Interpretation Comments HEMOGLOBIN A1C (BEAKER) (test code = 6.1 % 4.3-6.1 368) VITAMIN [id number] 06:59:00 Test Item Value Reference Range Interpretation Comments VITAMIN B12 (BEAKER) (test code = 483 pg/mL 213-816 774) TSH/FREE T4 IF [id number] 06:59:00 Test Item Value Reference Range Interpretation Comments THYROID STIMULATING HORMONE 1.74 uIU/mL 0.35-4.94 (BEAKER) (test code = 772) BASIC METABOLIC [id number] 06:04:00 Test Item Value Reference Range Interpretation [...] NOT APPLICABLE FOR DIALYSIS PATIEN TS. LIPID [id number] 05:54:00 Test Item Value Reference Range Interpretation [...] Very High >=190CBC W/PLT COUNT & AUTO [id number] 04:52:00 Test Item Value Reference Range Interpretation [...] (test code = 2801) MR, BRAIN, WITHOUT [id number] 04:11:00FINAL REPORT MRI Brain without contrast Clinical History: TIA/Stroke Technique: MRI of the brain utilizing axial T2, FLAIR, GRE, DWI; sagittal and coronal T1- weighted images. MRAof the head utilizing 3-D hovb-hw-wxuwyb technique, with 3-D reconstructions. MRA of the neck utilizing 2-D and 3-D wwdu-cl-redbwe technique, with 3-D reconstructions. Comparisons: None Findings:MRI [...] MRA head: No evidence for a major [place] proximal branch vessel occlusion. MRA neck: No evidence of hemodynamically significant stenosis in the cervical carotid or vertebral arteries by NASCET criteria. Signed: Sharmin Pleitez Verified Date/Time: 08/19/2018 04:11:07 Reading Location: [address] Transitional Reading Room MR, MRA, BRAIN, WITHOUT [id number] 04:11:00FINAL REPORT MRI Brain without contrast Clinical History: TIA/Stroke Technique: MRI of the brain utilizing axial T2, FLAIR, GRE, DWI; sagittal and coronal T1-weighted images. MRAof the head utilizing 3-D gwdi-sm-ofufhv technique, with 3-D reconstructions. MRA of the neck utilizing 2- D and 3-D rwkn-dq-vpvbvm technique, with 3-D reconstructions. Comparisons: None Findings:MRI [...] MRA head: No evidence for a major [place] proximal branch vessel occlusion. MRA neck: No evidence of hemodynamically significant stenosis in the cervical carotid or vertebral arteries by NASCET criteria. Signed: Sharmin Pleitez Verified Date/Time: 08/19/2018 04:11:07 Reading Location: [facility] C013 Transitional Reading Room MR, MRA, NECK, WITHOUT IV [id number] 04:11:00Reason for exam:->Stroke/TIAFINAL REPORT MRI Brain without contrast Clinical History: TIA/Stroke Technique: MRI of the brain utilizing axial T2, FLAIR, GRE, DWI; sagittal and coronal T1-weighted images. MRAof the head utilizing 3-D adga-sy-yufbun technique, with 3-D reconstructions. MRA of the neck utilizing 2-D and 3-D inya-xi-ywuzjk technique, with 3-D reconstructions. Comparisons: None Findings:MRI [...] MRA head: No evidence for a major [place] proximal branch vessel occlusion. MRA neck: No evidence of hemodynamically significant stenosis in the cervical carotid or vertebral arteries by NASCET criteria. Signed: Sharmin Pleitez Verified Date/Time: 08/19/2018 04:11:07 Reading Location: [address] Reading Room POCT-GLUCOSE [id number] 21:55:00 Test Item Value Reference Range Interpretation Comments POC-GLUCOSE METER 115 mg/dL 70-110 H TESTED AT [place] [address] ([facility]) (test code = [facility] 1538 [address] POCT-GLUCOSE [id number] 18:29:00 Test Item Value Reference Range Interpretation Comments POC-GLUCOSE METER 93 mg/dL 70-110 TESTED AT [place] [address] ([facility]) (test code = [facility] [address] 1538) CT, CTA [id number] 10:10:00Reason for Exam:->assess iliac vessels, pre kidney transplantAddendum BeginsREPORT STATUS:A Addendum: I agree with the previously described non vascular findings. Signed: NanetteCristopher flores MDReport Verified Date/Time: 06/27/2018 10:10:18 Reading Location: [place] [address] Angio Body Reading RoomAddendum EndsFINAL REPORT CT angiography of the abdominal aorta and pelvic arteries, 25-Jun-18 INDICATION: This is a 53 year oldfemale with end-stage renal disease, presents for pretransplant assessment. This study is performed in an attempt to avoid an invasive procedure. TECHNIQUE: Spiral acquisition before and during intravenous contrast administration using a [employer] multidetector CT scanner. Images were obtained before [...] except for minimal calcific atherosclerosis identified proximally. Gasoline Truck Operator dimensions of the left and the right external iliac arteries are 6 and 6 mm, respectively. Similarly, the associated pelvic veins are patent with no venous thrombosis identified. Gasoline Truck Operator dimensions of the left and the right [...] no arterial stenosis or venous thrombosis identified. Gasoline Truck Operator dimensions of the left and the right external iliacarteries and veins are as described above. 2. Widely patent mesenteric arteries. Patent renal arteries. 3. Other findings as described above. 4. An addendum will be dictated regarding the non-vascular findings by the Dust Control Engineer Radiologist. Signed: Samson Mcgill MDReport Verified Date/Time: 06/25/2018 09:45:12 Reading Location: [place] [id number] Cardiology MRI OCCULT BLOOD, [id number] 00:49:00 Test Item Value Reference Range Interpretation Comments FECAL OCCULT BLOOD (BEAKER) (test Negative Negative code = 618) U/S, ABDOMINAL, [id number] 13:53:00Reason for Exam:->pre transplant evaluationFINAL REPORT Abdominal [...] MDReport Verified Date/Time: 05/02/2017 13:53:56 Reading Location: [facility] B1 P006J Ultrasound Reading Room Electronically signedby: EDWAR THAYER MD on 03/01/2018 01:53 PMOCCULT BLOOD, [id number] 11:11:00 Test Item Value Reference Range Interpretation Comments FECAL OCCULT BLOOD (BEAKER) (test Negative Negative code = 618) [id number] 10:23:00 Test Item Value Reference Range Interpretation Comments PHOSPHORUS (BEAKER) (test code = 3.9 mg/dL 2.3-4.7 604) PROTHROMBIN [id number] 10:21:00 Test Item Value Reference Range Interpretation Comments PROTIME (BEAKER) (test code = 13.2 seconds 11.7-14.7 759) INR (BEAKER) (test code = 370) 1.0 <=5.9 RECOMMENDED COUMADIN/WARFARIN INR THERAPY RANGESSTANDARD DOSE: 2.0 - 3.0 Includes: PROPHYLAXIS forvenous thrombosis, systemic embolization; TREATMENT for venous thrombosis and/or pulmonary embolus.HIGH RISK: Target INR is 2.5-3.5 for patients with mechanical heart valves.URINE [id number] 10:03:00 Test Item Value Reference Range Interpretation Comments CULTURE (BEAKER) (test 40-49,000 col/mL skin code = 1095) johnny CYTOMEGALOVIRUS ANTIBODY, [id number] 10:10:00 Test Item Value Reference Range Interpretation Comments CYTOMEGALOVIRUS, IGG (BEAKER) Positive Negative, Equivocal A (test code = 3429) CMV IgG Result Interpretation: </= 0.8 Al Negative 0.9-1.0 Al Equivocal >/=1.1 Al PositiveCYTOMEGALOVIRUS ANTIBODY, [id number] 10:10:00 Test Item Value Reference Range Interpretation Comments CYTOMEGALOVIRUS IGM ANTIBODY Positive Negative, Equivocal A (BEAKER) (test code = 3437) CMV IgM Result Interpretation: </= 0.8 Al Negative 0.9-1.0 Al Equivocal >/= 1.1 Al PositiveEBV ANTIBODY, [id number] 10:10:00 Test Item Value Reference Range Interpretation [...] Equivocal >/= 1.1 Al PositiveVARICELLA ZOSTER ANTIBODY, [id number] 10:09:00 Test Item Value Reference Range Interpretation Comments VARICELLA ZOSTER IGG (AL) (BEAKER) > (test code = 3197) VARICELLA ZOSTER RESULT INTERPRETATIONS: <=0.8 Al Nonreactive: Presumed non-immune to VZV 0.9-1.0 Al Equivocal >=1.1 Al Reactive: Presumed immune to [id number] 07:38:00 Test Item Value Reference Range Interpretation Comments RPR SCREEN (BEAKER) (test code = Nonreactive Nonreactive 420) CBC W/PLT COUNT & AUTO [id number] 14:38:00 Test Item Value Reference Range Interpretation [...] (test code = 2801) RAD, CHEST, 2 [id number] 12:48:00Reason for Exam:->pre transplant evaluationFINAL REPORT PA and Lateral views of the chest dated 01/15/2018 Clinical information: pre transplant evaluation Comment: Heart is normal in size. Pulmonary vasculature is unremarkable. Lungs are clear. No pulmonary infiltrate or pleural effusion is present. Impression: No active cardiopulmonary disease. Signed: Daiana Anaya Verified Date/Time: 01/15/2018 12:48:30 Reading Location: [address] Radiology Reading Room HEMOGLOBIN [id number] 11:27:00 Test Item Value Reference Range Interpretation Comments HEMOGLOBIN A1C (BEAKER) (test code = 5.6 % 4.3-6.1 368) URINALYSIS W/ [id number] 11:23:00 Test Item Value Reference Range Interpretation [...] = 1585) Rare SOURCE(BEAKER) (test code = 8307) COMPREHENSIVE METABOLIC [id number] 10:41:00 Test Item Value Reference Range Interpretation [...] NOT APPLICABLE FOR DIALYSIS PATIEN TS. URIC [id number] 10:04:00 Test Item Value Reference Range Interpretation [...] H code = 635) HEPATITIS B SURFACE [id number] 10:03:00 Test Item Value Reference Range Interpretation Comments HEPATITIS B SURFACE ANTIGEN (2) Nonreactive Nonreactive (BEAKER) (test code = 2585) HEPATITIS B SURFACE [id number] 10:03:00 Test Item Value Reference Range Interpretation Comments HEPATITIS B SURFACE ANTIBODY 69.3 mIU/mL <8.0 H (BEAKER) (test code = 647) HEPATITIS B CORE ANTIBODY, [id number] 10:03:00 Test Item Value Reference Range Interpretation Comments HEPATITIS B CORE IGM ANTIBODY Nonreactive Nonreactive (BEAKER) (test code = 645) HEPATITIS C [id number] 10:03:00 Test Item Value Reference Range Interpretation Comments HEPATITIS C ANTIBODY (BEAKER) Nonreactive Nonreactive (test code = 367) HIV-1 ANTIGEN WITH HIV-1/2 [id number] 10:03:00 Test Item Value Reference Range Interpretation Comments HIV-1 ANTIGEN WITH HIV 1\T\2 Nonreactive Nonreactive ANTIBODY (2) (BEAKER) (test code = 2586) PTH, [id number] 09:45:00 Test Item Value Reference Range Interpretation Comments PARATHYROID HORMONE INTACT 308.0 pg/mL 8.5-72.5 H (BEAKER) (test code = 577) [id number] 09:31:00 Test Item Value Reference Range Interpretation Comments PROTIME (CARLY) (test code = 14.4 seconds 11.7-14.7 759) INR (CARLY) (test code = 370) 1.1 <=5.9 PARTIAL THROMBOPLASTIN TIME 29.8 seconds 22.5-36.0 (YONNYAKER) (test code = 760) RECOMMENDED COUMADIN/WARFARIN INR THERAPY RANGESSTANDARD DOSE: 2.0 - 3.0 Includes: PROPHYLAXIS forvenous thrombosis, systemic embolization; TREATMENT for venous thrombosis and/or pulmonary embolus.HIGH RISK: Target INR is 2.5-3.5 for patients with mechanical heart valves.
[2021-05-22] MEDS ORDERED: ONDANSETRON 4 MG/2 ML VIAL ONE (14:06)
[2021-05-22] MEDS ORDERED: NA CHLORIDE 0.9% 250 ML ONE (14:06)
[2021-05-22 14:52] LABS: Absolute Lymphocytes (CBC) 1.7 K/uL (0.7-4.9); Hematocrit 27.1 % (36.0-45.0); Lymphocytes % 25.7 % (15.3-44.8); MPV 8.6 fL (7.6-11.3); RBC Red Blood Cell Count 3.01 M/uL (3.86-4.86)
--- NOTE | 2021-05-22 15:37 | RAD REPORT ---
EXAM DESCRIPTION: CTAbdomen Pelvis Wo Contrast - 05/22/2021 3:26 pm CLINICAL HISTORY: ABD PAIN COMPARISON: No comparisons TECHNIQUE: CT of the abdomen and pelvis was performed. All CT scans are performed using dose optimization technique as appropriate and may include automated exposure control or mA/KV adjustment according to patient size. FINDINGS: Lower chest: Coronary artery calcifications. Liver: No acute abnormality or suspicious lesions. Biliary: Cholelithiasis. Stomach: No significant focal abnormality. Duodenum: No significant focal abnormality. Pancreas: No significant abnormality. Spleen: No significant abnormality. Adrenal: No suspicious lesions. Kidney/ureter: No hydronephrosis. Multiple bilateral renal calculi. There is a stone in the left prox imal ureter/ UPJ. Atrophic bilateral kidneys. Retroperitoneum: No retroperitoneal adenopathy. Vascular: No aneurysm. Bowel: Diffuse colonic wall thickening.. Normal appendix. Peritoneum: Small volume of free fluid in abdomen pelvis. This may be peritoneal dialysis. There is f luid within the abdominal wall along the rectus sheath lung the location of the peritoneal dialysis c atheter. Catheter itself terminates in the left hemiabdomen. Bladder: Decompressed bladder. The bladder wall may be thickened. Reproductive: No adnexal masses. Bones: No acute fracture. Small focus of sclerosis in the left femoral head is likely a bone island Other: n/a IMPRESSION: Diffuse colonic wall thickening which could indicate colitis. Abdominopelvic free fluid is likely dialysate. Other incidental findings including cholelithiasis, bilateral renal atrophy, and bilateral nephrolithiasis. No other acute findings identified.
[2021-05-22 15:51] LABS: AST/SGOT 10 U/L (15-37); Albumin 2.1 g/dL (3.4-5.0); Alkaline Phosphatase 108 U/L (45-117); BUN Blood Urea Nitrogen 41 mg/dL (7-18); Bicarbonate 29 mmol/L (21-32); Bilirubin Direct 0.2 mg/dL (0-0.2); Bilirubin Total 0.4 mg/dL (0.2-1.0); Glucose Level 96 mg/dL (74-106); Lipase 370 U/L (73-393); Potassium 3.2 mmol/L (3.5-5.1); Sodium Level 131 mmol/L (136-145)
[2021-05-22 15:53] LABS: ALT/SGPT < 6 U/L (12-78)
--- NOTE | 2021-05-22 16:24 | ER ---
Nurse's Notes [facility] Name: Maki Tabares Age: 56 yrs Sex: Female : 1965 Arrival Date: 05/22/2021 Time: 13:10 Bed 24 Private MD: Diagnosis: Infectious gastroenteritis and colitis, unspecified;Abdominal pain, Generalized Presentation: 05/22 13:35 Chief complaint: Patient states: Pt c/o of not eating x3 day with + n/v/d worrisome of ss7 dehydration. Coronavirus screen: Vaccine status: Patient reports receiving the 2nd dose of the covid vaccine. Client denies travel out of the [place] in the last 14 days. Ebola Screen: No symptoms or risks identified at this time. Initial Sepsis Screen: Does the patient meet any 2 criteria? No. Patient's initial sepsis screen is negative. Does the patient have a suspected source of infection? No. Patient's initial sepsis screen is negative. Risk Assessment: Do you want to hurt yourself or someone else? Patient reports no desire to harm self or others. Onset of symptoms was May 19, 2021. 13:35 Method Of Arrival: Ambulatory ss7 13:35 Acuity: TAVIA 3 ss7 Historical: - Allergies: 13:36 SHELLFISH; ss7 - Home Meds: 13:57 aspirin 81 mg Oral chew once daily [Active]; atenolol 100 mg Oral tab 1 tab once daily lr4 [Active]; Belsomra 10 mg Oral tab 1 tab nightly [Active]; clonidine HCl 0.3 mg Oral tab 1 tab 3 times daily [Active]; clonidine patch 0.3 weekly sunday [Active]; fluoxetine 40 mg Oral cap 1 cap once daily [Active]; furosemide 40 mg Oral tab 1 tab 2 times per day [Active]; glimepiride 4 mg Oral tab 1 tab once daily [Active]; hydralazine 100 mg Oral tab 1 tab 3 times per day [Active]; hydrochlorothiazide 25 mg Oral tab 1 tab once daily [Active]; Klor-Con 10 10 mEq Oral TbER 1 tab once daily [Active]; lisinopril 40 mg Oral tab [Active]; melatonin 5 mg Oral tab nightly [Active]; metformin 500 mg Oral Tb24 2 tabs 2 times per day [Active]; Metoprolol Tartrate 200MG Oral 2 tabs once daily [Active]; nifedipine 90 mg Oral TbER 1 tab once daily [Active]; nifidipine er 30 mg daily [Active]; nifidipine er 90 mg daily [Active]; pravastatin 20 mg Oral tab 1 tab nightly [Active]; Prozac 40 mg Oral cap PRN [Active]; trazodone 100 mg Oral tab 1 tab at bed time [Active]; Vitamin D Oral 20857 unit WEEKLY [Active]; - PMHx: 13:36 Dialysis; peritoneal; Parkinsons; Diabetes - NIDDM; Hyperlipidemia; Hypertension; ss7 - Immunization history:: Client reports receiving the 2nd dose of the Covid vaccine. - Social history:: Smoking status: Patient denies any tobacco usage or history of. Screenin:57 Abuse screen: Denies threats or abuse. Nutritional screening: No deficits noted. lr4 Tuberculosis screening: No symptoms or risk factors identified. Fall Risk None identified. Assessment: 13:56 General: Appears in no apparent distress. comfortable, Behavior is calm, cooperative. lr4 Pain: Denies pain. Neuro: No deficits noted. Cardiovascular: No deficits noted. Respiratory: No deficits noted. GI: Abdomen is round non-distended, Bowel sounds present X 4 quads. Reports diarrhea, nausea, vomiting, Patient currently denies pain. 16:40 Reassessment: Patient states feeling better. Patient states symptoms have improved. PO lr4 challenge passed, pt departed ed ambulatory with all personal effects, pt in nad. Vital Signs: 13:35 BP 186 / 67; Pulse 55; Resp 20; Temp 97.9; Pulse Ox 100% ; Weight 81.65 kg; Height 5 ss7 ft. 1 in. (154.94 cm); 14:06 BP 171 / 71; Pulse 55; Resp 18; Pulse Ox 96% on R/A; Pain 0/10; lr4 16:41 BP 158 / 76; Pulse 61; Resp 20; Pulse Ox 98% ; lr4 13:35 Body Mass Index 34.01 (81.65 kg, 154.94 cm) ss7 ED Course: 13:10 Patient arrived in ED. ds1 13:27 Blas Nunn MD is Attending Physician. jr11 13:36 Triage completed. ss7 13:56 Fozia Mistry RN is Primary Nurse. lr4 13:57 Arm band placed on right wrist. lr4 13:59 Patient has correct armband on for positive identification. Bed in low position. Call lr4 light in reach. Side rails up X 1. Adult w/ patient. Warm blanket given. 14:05 No provider procedures requiring assistance completed. lr4 15:26 CT Abd/Pelvis - Without Contrast In Process Unspecified. EDMS 16:40 IV discontinued, intact, bleeding controlled, No redness/swelling at site. Pressure lr4 dressing applied. Administered Medications: 13:55 CANCELLED (Duplicate Order): NS 0.9% 1000 ml IV at 1 bolus Per protocol; 1000 mL bolus jr11 14:45 Drug: Zofran (Ondansetron) 4 mg Route: IVP; Site: right antecubital; lr4 15:07 Follow up: Response: No adverse reaction; Marked relief of symptoms; Vomiting decreased lr4 15:57 Follow up: Response: No adverse reaction; Nausea is decreased lr4 14:45 Drug: NS 0.9% 250 ml Route: IV; Rate: bolus; Site: right antecubital; lr4 15:55 Follow up: IV Status: Completed infusion; IV Intake: 250ml lr4 Intake: 15:55 IV: 250ml; Total: 250ml. lr4 Outcome: 16:23 Discharge ordered by . jr11 16:40 Condition: stable lr4 16:40 Discharge instructions given to patient. lr4 16:40 Discharged to home ambulatory. lr4 16:42 Patient left the ED. lr4 Signatures: Dispatcher [employer] [facility] Eliana Montes ds1 Blas Nunn MD MD jr11 Shona Granados RN RN ss7 Fozia Mistry RN RN lr4
--- NOTE | 2021-05-22 16:24 | EDPHYS ---
Physician Documentation [facility] Name: Maki Tabares Age: 56 yrs Sex: Female : 1965 Arrival Date: 05/22/2021 Time: 13:10 Bed 24 Private MD: ANUP Physician Blas Nunn HPI: 05/22 14:33 This 56 yrs old Black Female presents to ER via Ambulatory with complaints of Diarrhea, jr11 Vomiting. 14:33 The patient presents to the emergency department with nausea, vomiting, diarrhea. jr11 Onset: The symptoms/episode began/occurred 3 day(s) ago. Possible causes: unknown. The symptoms are aggravated by nothing. The symptoms are alleviated by nothing. Associated signs and symptoms: Pertinent positives: abdominal pain, anorexia, nausea, vomiting. Severity of symptoms: At their worst the symptoms were moderate in the emergency department the symptoms have improved Pain is currently a 5 / 10. Is a 56-year-old female dialysis impaction patient here with nausea vomiting and diarrhea, her last bout of diarrhea was yesterday, diarrhea improving. No blood no mucus. Patient also with multiple episodes of emesis 3 days ago, no episodes today. Just feels nauseous.. Historical: - Allergies: 13:36 SHELLFISH; ss7 - Home Meds: 13:57 aspirin 81 mg Oral chew once daily [Active]; atenolol 100 mg Oral tab 1 tab once daily lr4 [Active]; Belsomra 10 mg Oral tab 1 tab nightly [Active]; clonidine HCl 0.3 mg Oral tab 1 tab 3 times daily [Active]; clonidine patch 0.3 weekly sunday [Active]; fluoxetine 40 mg Oral cap 1 cap once daily [Active]; furosemide 40 mg Oral tab 1 tab 2 times per day [Active]; glimepiride 4 mg Oral tab 1 tab once daily [Active]; hydralazine 100 mg Oral tab 1 tab 3 times per day [Active]; hydrochlorothiazide 25 mg Oral tab 1 tab once daily [Active]; Klor-Con 10 10 mEq Oral TbER 1 tab once daily [Active]; lisinopril 40 mg Oral tab [Active]; melatonin 5 mg Oral tab nightly [Active]; metformin 500 mg Oral Tb24 2 tabs 2 times per day [Active]; Metoprolol Tartrate 200MG Oral 2 tabs once daily [Active]; nifedipine 90 mg Oral TbER 1 tab once daily [Active]; nifidipine er 30 mg daily [Active]; nifidipine er 90 mg daily [Active]; pravastatin 20 mg Oral tab 1 tab nightly [Active]; Prozac 40 mg Oral cap PRN [Active]; trazodone 100 mg Oral tab 1 tab at bed time [Active]; Vitamin D Oral 01045 unit WEEKLY [Active]; - PMHx: 13:36 Dialysis; peritoneal; Parkinsons; Diabetes - NIDDM; Hyperlipidemia; Hypertension; ss7 - Immunization history:: Client reports receiving the 2nd dose of the Covid vaccine. - Social history:: Smoking status: Patient denies any tobacco usage or history of. ROS: 14:33 Eyes: Negative for injury, pain, redness, and discharge. jr11 14:33 All other systems are negative. Exam: 14:33 Constitutional: This is a well developed, well nourished patient who is awake, alert, jr11 and in no acute distress. Head/Face: Normocephalic, atraumatic. Eyes: Extra-ocular motions intact. Lids and lashes normal. Conjunctiva and sclera are non-icteric and not injected. Cornea within normal limits. Periorbital areas with no swelling, redness, or edema. ENT: Nares patent. No nasal discharge, no septal abnormalities noted. Oropharynx with no redness, swelling, or masses, exudates, or evidence of obstruction, uvula midline. Mucous membranes moist. Chest/axilla: Normal chest wall appearance and motion. Nontender with no deformity. No lesions are appreciated. Respiratory: Lungs have equal breath sounds bilaterally, clear to auscultation and percussion. No rales, rhonchi or wheezes noted. No increased work of breathing, no retractions or nasal flaring. Abdomen/GI: mild pain, no peritonitis Skin: Warm, dry with normal turgor. Normal color with no rashes, no lesions, and no evidence of cellulitis. MS/ Extremity: Pulses equal, no cyanosis. Neurovascular intact. Full, normal range of motion. Neuro: Awake and alert, GCS 15, oriented to person, place, time, and situation. No gross motor or sensory deficits. Vital Signs: 13:35 BP 186 / 67; Pulse 55; Resp 20; Temp 97.9; Pulse Ox 100% ; Weight 81.65 kg; Height 5 ss7 ft. 1 in. (154.94 cm); 14:06 BP 171 / 71; Pulse 55; Resp 18; Pulse Ox 96% on R/A; Pain 0/10; lr4 16:41 BP 158 / 76; Pulse 61; Resp 20; Pulse Ox 98% ; lr4 13:35 Body Mass Index 34.01 (81.65 kg, 154.94 cm) ss7 MDM: 14:33 Patient medically screened. [facility] 14:33 Differential diagnosis: Nonspecific abd pain, gastritis, pancreatitis, viral jr11 gastroenteritis, gastroenteritis. Data reviewed: vital signs, nurses notes. ED course: Patient is a 56-year-old female with diarrhea vomiting for 2 to 3 days, improving. Will treat symptomatically, CT, if negative, will p.o. challenge here. Patient states she is actually improving not worsening but family was concerned when she mentioned she had eaten anything today. Will p.o. challenge and make sure she is able to eat if work-up is benign.. 16:22 ED course: Pt feeling better, tolerating po, CT with possibe colitis. Given that she is jr11 PD dialysis, will not replete electrolytes at this time given that she will do dialysis and should normalize now that she stopped vomiting, asymptomatic. Sister at bedside, strict return precautions given. Will treat for colitis. . 05/22 13:30 Order name: Basic Metabolic Panel; Complete Time: 16:13 05/22 13:30 Order name: CBC with Diff; Complete Time: 15:38 05/22 13:30 Order name: Hepatic Function; Complete Time: 16:13 05/22 13:30 Order name: Lipase; Complete Time: 16:13 05/22 13:30 Order name: Troponin High Sensitivity; Complete Time: 16:13 05/22 13:56 Order name: CT Abd/Pelvis - Without Contrast; Complete Time: 15:38 05/22 13:30 Order name: IV Saline Lock; Complete Time: 15:55 05/22 13:30 Order name: Labs collected and sent; Complete Time: 15:55 05/22 14:55 Order name: Labs - recollect needed: recollect green top/ hemolyzed; Complete Time: eb 15:53 Administered Medications: 13:55 CANCELLED (Duplicate Order): NS 0.9% 1000 ml IV at 1 bolus Per protocol; 1000 mL bolus jr11 14:45 Drug: Zofran (Ondansetron) 4 mg Route: IVP; Site: right antecubital; lr4 15:07 Follow up: Response: No adverse reaction; Marked relief of symptoms; Vomiting decreased lr4 15:57 Follow up: Response: No adverse reaction; Nausea is decreased lr4 14:45 Drug: NS 0.9% 250 ml Route: IV; Rate: bolus; Site: right antecubital; lr4 15:55 Follow up: IV Status: Completed infusion; IV Intake: 250ml lr4 Disposition Summary: 05/22/21 16:23 Discharge Ordered Location: Home [facility] Condition: Stable jr11 Diagnosis - Infectious gastroenteritis and colitis, unspecified jr11 - Abdominal pain, Generalized jr11 Discharge Instructions: - Discharge Summary Sheet jr11 - Abdominal Pain, Adult jr11 - Food Choices to Help Relieve Diarrhea, Adult jr11 - Colitis jr11 Forms: - Medication Reconciliation Form jr11 - Thank You Letter jr11 - Antibiotic Education jr11 - Prescription Opioid Use jr11 Prescriptions: - Flagyl 500 mg Oral Tablet - take 1 tablet by ORAL route every 12 hours for 7 days; 14 tablet; Refills: 0, jr11 Product Selection Permitted - Reglan 10 mg Oral Tablet - take 1 tablet by ORAL route every 6 hours . take 30 minutes before meals for jr11 nausea; 100 tablet; Refills: 0, Product Selection Permitted - Cipro 500 mg Oral Tablet - take 1 tablet by ORAL route every 12 hours for 7 days; 14 tablet; Refills: 0, jr11 Product Selection Permitted Signatures: Dispatcher [employer] Tisha Kapadia Jose, MD MD jr11 Shona Granados RN RN ss7 Fozia Mistry RN RN lr4 Corrections: (The following items were deleted from the chart) 13:55 13:30 NS 0.9% 1000 ml IV at 1 bolus Per protocol; 1000 mL bolus ordered. jr11 jr11
[2021-05-22 16:45] VITALS: TEMP 97.9
[2021-05-22 16:48] VITALS: BP 158/76; O2SAT 98
== END 2021-05-22 16:42 | disposition home or self-care (01) ==
LOC: ER 13:07
DX: A09 Infectious gastroenteritis and colitis, unspecified (principal); I10 Essential (primary) hypertension; E11.9 Type 2 diabetes mellitus without complications; G20 Parkinson's disease; Z99.2 Dependence on renal dialysis; Z79.82 Long term (current) use of aspirin; Z91.013 Allergy to seafood
CPT/HCPCS: 96365; 85025; 80048; 36415; 80076; 84484; 83690; 74176; 96375; 99283; J7050; J2405

== ENCOUNTER 2021-06-09 15:23 | Emergency (ER) | payer OTHER ==
--- OUTSIDE RECORDS SUMMARY | 2021-06-09 15:31 | XMS REPORT | Continuity of Care Document ---
:1965 Author Organization [facility] t Address [address] [place] [address] Care Team Providers Name Role Phone Dagmar [...] Expiration Date S ource OPTUM UNITED ONLY [id number] 2017 MCR REPL 00:00:00 UNITED MEDICARE [id number] 2020 HMO 00:00:00 Problems Condition Condition Condition Status Onset Resolution Last Treating Co mments Source Name Details Category Date Date Treatment Clinician Date Other Other Disease Active [facility] specified specified 9-20 [place] personal personal 00:00: of risk risk 00 Medicin factors, factors, e not not elsewhere elsewhere classified classified Dysphasia Dysphasia Disease Active [place] following following 12-02 [facility] unspecifie [...] e Type 2 Type 2 Disease Active [facility] diabetes diabetes 12-02 Colleg e mellitus mellitus 00:00: of with with 00 Medicin chronic chronic e kidney kidney disease disease (HCCode) (HCCode) 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 11-28 Co llege rosis rosis 00:00: of 00 Medicin e Dependence Dependence Disease Active [facility] on renal 11-28 Colleg e dialysis dialysis 00:00: of (HCCode) (HCCode) 00 Medici n e Localized Localized Disease Active [facility] edema due edema due 11-28 [place] to fluid to fluid 00:00: of overload overload 00 Medici n e Acute Acute Disease Active [facility] encephalop encephalop 10-28 Co llege athy athy 00:00: of 00 Medicin e Slurred Slurred Disease Active [facility] speech speech 5- [place] 00:00: of 00 Medicin e Pre-transp Pre-transp Disease Active 2017-03 Overview : [facility] lant lant 0-23 Last College evaluation evaluation 00:00: Assessmen of for for 00 t & Plan: Medicin chronic chronic She is an e kidney kidney acceptabl disease disease e candidate for kidney transplan t pending further testing and formal review at [facility]. Obesity Obesity Disease Active 2016-03 Univers (BMI (BMI 1-10 ity of 30-39.9) 30-39.9) 00:00: [place] 00 Medical Branch Malfunctio Malfunctio Disease Active 2016-03 Overview : [facility] n of n of 1-07 Added College arterioven arterioven 00:00: automatic of ous graft ous graft 00 ally from [facility] e for surgery [id number] Morbid Morbid Disease Active 2016-03 [facility] obesity obesity 0-16 College with body with body 00:00: of mass index mass index 00 Me dicin of of e 40.0-49.9 40.0-49.9 [facility] Thrombosis Thrombosis Disease Active 2016-03 Overview : Univers of kidney of kidney 0-13 Added ity of dialysis dialysis 00:00: automatic Red as arterioven arterioven 00 ally from Medical ous graft, ous graft, request B prakash initial initial for encounter encounter surgery [id number] ESRD (end ESRD (end Disease Active Overview: [facility] stage stage 8-21 [facility] renal renal 00:00: Assessmen of disease) disease) 00 t & Plan: Med icin on on ESRD due e dialysis [facility] She has been on dialysis since 2017. She does have a potential donor at this time.Adde d automatic ally from request for surgery [id number] ESRD ESRD Disease Active Overview: Univer s needing needing 8- Added ity of dialysis dialysis 00:00: automatic Red as 00 ally from Medical request Branch for surgery [id number] CKD CKD Disease Active [facility] (chronic (chronic 4-25 Colleg e kidney kidney 00:00: of disease) disease) 00 Medici n e Major Major Disease Active [facility] depressive depressive 8 Co llege disorder, disorder, 00:00: of recurrent recurrent 00 Medi leticia episode episode e [facility] Localized Localized Disease Active [facility] osteoarthr osteoarthr 8- Co llege osis osis 00:00: of 00 Medicin e 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 6- [place] depression depression 00:00: of with with 00 Medicin psychotic psychotic e features features [facility] ([facility] Allergic Allergic Disease Active [place] rhinitis rhinitis 4-05 Colleg e 00:00: of 00 Medicin e Hypertensi Hypertensi Disease Active [facility] on on 06-28 College 00:00: of 00 Medicin e Lumbago Lumbago Disease Active [facility] 4-05 College 00:00: of 00 Medicin e Pain in Pain in Disease Active [facility] joint, joint, 05 [place] lower leg lower leg 00:00: of 00 Medicin e 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[facility] hyperchole hyperchole 06-28 Co llege sterolemia sterolemia 00:00: of 00 Medicin e Venous Venous Disease Active [facility] (periphera (periphera 06-28 Co llege l) l) 00:00: of insufficie insufficie 00 Me dicin ncy ncy e Depression Depression Disease Active [facility] 06-15 [place] 00:00: of 00 Medicin e Allergies, Adverse Reactions, Alerts Allergy Allergy Status Severity Reaction(s) Onset Inactive Treating Comm ents Source Name Type Date Date Clinician CRAYFISH Allergy Active High Anaphylaxis SL EH 08-06 00:00: 00 SHELLFIS Allergy Active Med Itching SLEH H 08-06 CONTAINI 00:00: NG 00 PRODUCTS Shellfis Propensi Active Hives 2018-03 Only [facility] s h ty to 03-29 crawfish ity of Derived adverse 00:00: per [place] reaction 00 patient. Medica l s Branch Shellfis Propensi Active Hives 2018-03 Only [facility] h-Derive ty to 1-04 crawfish Colleg e d adverse 00:00: per of Products reaction 00 patient. Medi leticia s to e drug NO KNOWN Allergy Active [facility] shellfis Adverse Active Info Not [facility] Reaction [facility] Social History Social Habit Start Date Stop Date Quantity Comments Source History [facility] ge Alcohol Std Drinks of Med icine History [facility] ge Alcohol Binge of Medicine Tobacco use and 2020-01-22 2020-01-22 Never used [facility] Co llege exposure 00:00:00 00:00:00 of Medicine Alcohol intake 2020-01-22 2020-01-22 Lifetime [facility] Col lege 00:00:00 00:00:00 non-drinker of Medicine (finding) History [facility] 2019-11-27 2019-11-27 1 [facility] Alcohol Frequency 00:00:00 00:00:00 of Medi cine Sex Ass[birth year] [facility] 00:00:00 00:00:00 Smoking Status Start Date Stop Date Source Tobacco smoking consumption unknown [facility] Never smoker [facility] o f Medicine Medications Ordered Filled Start Stop Current Ordering Indication Dosage Frequency Signature Comments Components Source Medication Medication Date Date Medication? Clinician (SIG) Name Name hydrocodone 2019-03 Yes [id number] tk 1 tab [facility] -acetaminop 0-29 [id number] po q 8 h Co llege hen [...] FOR Medicin 30 DAYS e hydrocodone Yes [id number] tk 1 to 2 [facility] -acetaminop 9-10 [id number] tabs po q C ollege hen (NORCO) 00:00: 6 h prn of 7.5-325 MG 00 severe Medicin per tablet pain e hydrocodone 2020- No [id number] tk 1 to 2 [facility] -acetaminop 9-10 10-29 [id number] tabs po q College hen (NORCO) 00:00: 00:00 6 h prn of 7.5-325 MG 00 :00 severe Medicin per tablet pain e hydrocodone Yes [id number] tk 1 to 2 [facility] -acetaminop 8-20 [id number] tabs po q C ollege hen (NORCO) 00:00: 6 h prn of 7.5-325 MG 00 severe Medicin per tablet pain e hydrocodone 2020- No [id number] tk 1 to 2 [facility] -acetaminop 8-20 09-10 [id number] tabs po q College hen (NORCO) 00:00: 00:00 6 h prn of 7.5-325 MG 00 :00 severe Medicin per tablet pain e Sevelamer 2020-0 Yes TAKE 1 [facility] Carbonate 8-07 TABLET BY Colle ge 800 [...] MIX ONE [facility] Carbonate 8-03 PACKET [place] 0.8 g PACK 00:00: WITH 2OZ. of 00 OF WATER Medicin THEN DRINK e WITH MEAL THREE TIMES A DAY Sevelamer 2019-0 Yes MIX ONE [facility] Carbonate 8-03 PACKET College 0.8 g PACK 00:00: WITH 2OZ. of 00 OF WATER Medicin THEN DRINK e WITH MEAL THREE TIMES A DAY Sevelamer 2019-0 Yes MIX ONE [facility] Carbonate 8-03 PACKET [place] 0.8 g PACK 00:00: WITH 2OZ. of 00 OF WATER Medicin THEN DRINK e WITH MEAL THREE TIMES A DAY ELIQUIS 5 2019- Yes TAKE 1 [facility] MG TABS 7-30 TABLET BY [place] 00:00: MOUTH of 00 TWICE Medicin DAILY FOR e 90 DAYS metformin 2019-0 Yes TAKE 1 [facility] (GLUCOPHAGE 7-30 TABLET BY Col lege ) 500 MG 00:00: MOUTH ONCE of tablet 00 DAILY WITH Medicin A MEAL FOR e 90 DAYS ELIQUIS 5 2019- Yes TAKE 1 [place] MG TABS 7-30 TABLET BY [place] 00:00: MOUTH of 00 TWICE Medicin DAILY FOR e 90 DAYS metformin 2019-0 Yes TAKE 1 [place] (GLUCOPHAGE 7-30 TABLET BY Col lege ) 500 MG 00:00: MOUTH ONCE of tablet 00 DAILY WITH Medicin A MEAL FOR e 90 DAYS ELIQUIS 5 Yes TAKE 1 [facility] MG TABS 7-30 TABLET BY [place] 00:00: MOUTH of 00 TWICE Medicin DAILY FOR e 90 DAYS metformin 2019-0 Yes TAKE 1 [facility] (GLUCOPHAGE 7-30 TABLET BY Col lege ) 500 MG 00:00: MOUTH ONCE of tablet 00 DAILY WITH Medicin A MEAL FOR e 90 DAYS spironolact 2020-0 Yes TAKE 1 [facility] one 7-29 TABLET BY [place] (ALDACTONE) 00:00: MOUTH ONCE of 25 MG 00 DAILY Medicin tablet e spironolact 2020-0 Yes TAKE 1 [facility] one 7-29 TABLET BY [place] (ALDACTONE) 00:00: MOUTH ONCE of 25 MG 00 DAILY Medicin tablet e spironolact 2020-0 Yes TAKE 1 [facility] one 7-29 TABLET BY [place] (ALDACTONE) 00:00: MOUTH ONCE of 25 MG 00 DAILY Medicin tablet e atenolol 2020-0 Yes TAKE 1 [facility] (TENORMIN) 7-10 TABLET BY [place] 50 MG 00:00: MOUTH ONCE of tablet 00 DAILY Medicin e clonidine 2020-0 Yes TAKE 1 [facility] (CATAPRESS) 7-10 TABLET BY Col lege 0.3 MG 00:00: MOUTH ONCE of tablet 00 DAILY Medicin e doxazosin 2020-0 Yes TAKE 1 [facility] (CARDURA) 8 7-10 TABLET BY Col lege MG tablet 00:00: MOUTH ONCE of 00 DAILY Medicin e atenolol 2020-0 Yes TAKE 1 [facility] (TENORMIN) 7-10 TABLET BY [place] 50 [...] Medicin e atenolol 2020-0 Yes TAKE 1 [facility] (TENORMIN) 7-10 TABLET BY [place] 50 MG 00:00: MOUTH ONCE of tablet 00 DAILY Medicin e clonidine 2020-0 Yes TAKE 1 [place] (CATAPRESS) 7-10 TABLET BY Col lege 0.3 MG 00:00: MOUTH ONCE of tablet 00 DAILY Medicin e doxazosin 2020-0 Yes TAKE 1 [facility] (CARDURA) 8 7-10 TABLET BY Col lege MG tablet 00:00: MOUTH ONCE of 00 DAILY Medicin e ascorbic 2019-1 Yes 500mg Take 500 Univ ers acid, 1-04 mg by ity of vitamin C, 16:36: mouth. [place] 500 mg 39 Medical tablet Branch calcitriol 2018-03 Yes .25ug Take 0.25 U nivers 0.25 mcg 1-04 mcg by ity of capsule 16:36: mouth. [place] [address] Medical Branch Cholecalcif 2018-03 Yes 5000U Take [...] by ity o f 16:36: mouth at [place] [address] bedtime. Medical Branch ascorbic 2018-03 Yes 500mg Take 500 Univ ers acid, 1-04 mg by ity of vitamin C, 16:36: mouth. [place] 500 mg 39 Medical tablet Branch calcitriol 2018-03 Yes .25ug Take 0.25 U nivers 0.25 mcg 1-04 mcg by ity of capsule 16:36: mouth. [place] [address] Medical Branch Cholecalcif 2018-03 Yes 5000U Take [...] by ity o f 16:36: mouth at [place] [address] bedtime. Medical Branch ascorbic 2018-03 Yes 500mg Take 500 Univ ers acid, 1-04 mg by ity of vitamin C, 16:36: mouth. [place] 500 mg 39 Medical tablet Branch calcitriol 2018-03 Yes .25ug Take 0.25 U nivers 0.25 mcg 1-04 mcg by ity of capsule 16:36: mouth. [place] [address] Medical Branch Cholecalcif 2018-03 Yes 5000U Take [...] by ity o f 16:36: mouth at [place] [address] bedtime. Medical Branch ascorbic 2018-03 Yes 500mg Take 500 Univ ers acid, 1-04 mg by ity of vitamin C, 16:36: mouth. [place] 500 mg 39 Medical tablet Branch calcitriol 2018-03 Yes .25ug Take 0.25 U nivers 0.25 mcg 1-04 mcg by ity of capsule 16:36: mouth. [place] [address] Medical Branch Cholecalcif 2018-03 Yes 5000U Take [...] by ity o f 16:36: mouth at [place] [address] bedtime. Medical Branch ascorbic 2018-03 Yes 500mg Take 500 Univ ers acid, 1-04 mg by ity of vitamin C, 16:36: mouth. [place] 500 mg 39 Medical tablet Branch calcitriol 2018-03 Yes .25ug Take 0.25 U nivers 0.25 mcg 1-04 mcg by ity of capsule 16:36: mouth. [place] 39 Medical Branch Cholecalcif 2018-03 Yes 5000U [...] by ity o f 16:36: mouth at [place] [address] bedtime. Medical Branch ascorbic 2018-03 Yes 500mg Take 500 Univ ers acid, 1-04 mg by ity of vitamin C, 16:36: mouth. [place] 500 mg 39 Medical tablet Branch calcitriol 2018-03 Yes .25ug Take 0.25 U nivers 0.25 mcg 1-04 mcg by ity of capsule 16:36: mouth. [place] [address] Medical Branch Cholecalcif 2018-03 Yes 5000U Take [...] by ity o f 16:36: mouth at [place] [address] bedtime. Medical Branch aspirin 81 2018-03 Yes 81mg Take 81 mg U nivers mg EC 1-04 by mouth ity of tablet 16:32: daily. [place] [address] Medical Branch glimepiride 2018-03 Yes 4mg Take 4 mg U nivers 4 mg tablet 1-04 by mouth ity of 16:32: daily with [place] [address] breakfast. Medical Branch aspirin 81 2018-03 Yes 81mg Take 81 mg U nivers mg EC 1-04 by mouth ity of tablet 16:32: daily. [place] [address] Medical Branch glimepiride 2018-03 Yes 4mg Take 4 mg U nivers 4 mg tablet 1-04 by mouth ity of 16:32: daily with [place] [address] breakfast. Medical Branch aspirin 81 2018-03 Yes 81mg Take 81 mg U nivers mg EC 1-04 by mouth ity of tablet 16:32: daily. [place] [address] Medical Branch glimepiride 2018-03 Yes 4mg Take 4 mg U nivers 4 mg tablet 1-04 by mouth ity of 16:32: daily with [place] [address] breakfast. Medical Branch aspirin 81 2018-03 Yes 81mg Take 81 mg U nivers mg EC 1-04 by mouth ity of tablet 16:32: daily. [place] [address] Medical Branch glimepiride 2018-03 Yes 4mg Take 4 mg U nivers 4 mg tablet 1-04 by mouth ity of 16:32: daily with [place] [address] breakfast. Medical Branch aspirin 81 2018-03 Yes 81mg Take 81 mg U nivers mg EC 1-04 by mouth ity of tablet 16:32: daily. [address] Branch glimepiride 2018-03 Yes 4mg Take 4 mg U nivers 4 mg tablet 1-04 by mouth ity of 16:32: daily with [place] [address] breakfast. Medical Branch aspirin 81 2018-03 Yes 81mg Take 81 mg U nivers mg EC 1-04 by mouth ity of tablet 16:32: daily. [address] Branch glimepiride 2018-03 Yes 4mg Take 4 mg U nivers 4 mg tablet 1-04 by mouth ity of 16:32: daily with [place] [address] breakfast. Medical Branch metFORMIN 2018-03 Yes TAKE [...] ity o f Misc 00:00: [facility]ILY [place] [facility] USE Univers VERIO FLEX 0-02 DIRECTED ity o f Misc 00:00: ONCE DAILY [place] [facility] 2018- Yes USE Univers VERIO FLEX 0-02 DIRECTED ity o f Misc 00:00: [facility] DAILY [place] [facility] USE Univers VERIO FLEX 0-02 DIRECTED ity o f Misc 00:00: [facility] DAILY [place] [facility] USE Univers VERIO FLEX 0-02 DIRECTED ity o f Misc 00:00: ONCE DAILY [place] [facility] USE Univers VERIO FLEX 0-02 DIRECTED ity o f Misc 00:00: ONCE DAILY [place] [facility] clopidogrel 2019-0 Yes 75mg Take 75 mg Univers 75 mg 6-17 by mouth. ity of tablet 00:00: [place] [facility] clopidogrel 2019-0 Yes 75mg Take 75 mg Univers 75 mg 6-17 by mouth. ity of tablet 00:00: [place] [facility] clopidogrel 2019-0 Yes 75mg Take 75 mg Univers 75 mg 6-17 by mouth. ity of tablet 00:00: [place] [facility] clopidogrel 2019-0 Yes 75mg Take 75 mg Univers 75 mg 6-17 by mouth. ity of tablet 00:00: [place] [facility] clopidogrel 2019-0 Yes 75mg Take 75 [...] ity of hr patch 00:00: skin as [place] needed. Medical Branch cloniDINE 2017- Yes 1{patch Apply 1 Un mike 0.3 mg/24 8-04 } Patch to ity of hr patch 00:00: skin as [place] needed. Medical Branch cloniDINE 2016-0 Yes 1{patch Apply 1 Un mike 0.3 mg/24 8-04 } Patch to ity of hr patch 00:00: skin as [place] needed. Medical Branch cloniDINE 2016- Yes 1{patch Apply 1 Un mike 0.3 mg/24 8-04 } Patch to ity of hr patch 00:00: skin as [place] needed. Medical Branch pravastatin Yes 20mg Take 20 mg Univers 20 mg 8-02 by mouth ity of tablet 00:00: at [place] [address] bedtime. Medical Branch pravastatin Yes 20mg Take 20 mg Univers 20 mg 8-02 by mouth ity of tablet 00:00: at [place] [address] bedtime. Medical Branch pravastatin Yes 20mg Take 20 mg Univers 20 mg 8-02 by mouth ity of tablet 00:00: at [place] [address] bedtime. Medical Branch pravastatin Yes 20mg Take 20 mg Univers 20 mg 8-02 by mouth ity of tablet 00:00: at [place] [address] bedtime. Medical Branch pravastatin Yes 20mg Take 20 mg Univers 20 mg 8-02 by mouth ity of tablet 00:00: at [place] [address] bedtime. Medical Branch pravastatin Yes 20mg Take 20 mg Univers 20 mg 8-02 by mouth ity of tablet 00:00: at [place] [address] bedtime. Medical Branch atenolol 50 Yes 50mg [...] by mouth ity of 00:00: daily. Medical [place] YANI 50 0 Yes 50mg Take 50 mg U nivers mg tablet 7-17 by mouth ity of 00:00: daily. [facility] DARRENARTURO 50 Yes 50mg Take 50 mg U nivers mg tablet 7-17 by mouth ity of 00:00: daily. Medical [place] DARRENARTURO 50 0 Yes 50mg Take 50 mg U nivers mg tablet 7-17 by mouth ity of 00:00: daily. [facility] DARRENARTURO 50 Yes 50mg Take 50 mg U nivers mg tablet 7-17 by mouth ity of 00:00: daily. [facility] YANI 50 0 Yes 50mg Take [...] of 00:00: (two) times Medical daily. Branch [facility] 10 Yes 10mg 10 mg Unive rs mg Tab 6-21 every ity of 00:00: evening. [facility] Branch [facility] 10 Yes 10mg 10 mg Unive rs mg Tab 6-21 every ity of 00:00: evening. [facility] Branch [facility] 10 Yes 10mg 10 mg Unive rs mg Tab 6-21 every ity of 00:00: evening. [facility] Branch [facility] 10 Yes 10mg 10 mg Unive rs mg Tab 6-21 every ity of 00:00: evening. [facility] Branch [facility] 10 Yes 10mg 10 mg Unive rs mg Tab 6-21 every ity of 00:00: evening. [facility] Branch [facility] 10 Yes 10mg 10 mg Unive rs mg Tab 6-21 every ity of 00:00: evening. [facility] Branch KLOR-CON Yes Univers M10 10 mEq 6-20 ity of tablet 00:00: [facility] Branch KLOR-CON Yes Univers M10 10 mEq 6-20 ity of tablet 00:00: Medical Branch KLOR-CON Yes Univers M10 10 mEq 6-20 ity of tablet 00:00: Medical Branch KLOR-CON Yes Univers M10 10 mEq 6-20 ity of tablet 00:00: Medical Branch KLOR-CON Yes Univers M10 10 mEq 6-20 ity of tablet 00:00: [facility] Branch KLOR-CON Yes Univers M10 10 mEq 6-20 ity of tablet 00:00: Medical Branch cloniDINE Yes .1mg Take 0.1 Univ ers 0.1 mg 5-25 mg by ity of tablet 00:00: mouth 2 (two) Medical times Branch daily. cloniDINE Yes .1mg Take 0.1 Univ ers 0.1 mg 5-25 mg by ity of tablet 00:00: mouth 2 [place] (two) Medical times Branch daily. cloniDINE 2017-0 Yes .1mg Take 0.1 Univ ers 0.1 mg 5-25 mg by ity of tablet 00:00: mouth 2 [place] (two) Medical times Branch daily. cloniDINE 2017-0 Yes .1mg Take 0.1 Univ ers 0.1 mg 5-25 mg by ity of tablet 00:00: mouth 2 [place] (two) Medical times Branch daily. cloniDINE 2017-0 Yes .1mg Take 0.1 Univ ers 0.1 mg 5-25 mg by ity of tablet 00:00: mouth 2 [place] (two) Medical times Branch daily. cloniDINE 2017-0 Yes .1mg Take 0.1 Univ ers 0.1 mg 5-25 mg by ity of tablet 00:00: mouth 2 [place] (two) Medical times Branch daily. NIFEdipine 2017-0 Yes 90mg Take 90 mg U nivers XL 90 mg 24 5-24 by mouth ity of hr tablet 00:00: daily. [address] NIFEdipine 2017-0 Yes 90mg Take 90 mg U nivers XL 90 mg 24 5-24 by mouth ity of hr tablet 00:00: daily. [place] [facility] NIFEdipine 2017-0 Yes 90mg Take 90 mg U nivers XL 90 mg 24 5-24 by mouth ity of hr tablet 00:00: daily. [address] NIFEdipine 2017-0 Yes 90mg Take 90 mg U nivers XL 90 mg 24 5-24 by mouth ity of hr tablet 00:00: daily. [address] NIFEdipine 2017-0 Yes 90mg Take 90 mg U nivers XL 90 mg 24 5-24 by mouth ity of hr tablet 00:00: daily. [address] NIFEdipine 2017-0 Yes 90mg Take 90 mg U nivers XL 90 mg 24 5-24 by mouth ity of hr tablet 00:00: daily. [address] hydroCHLORO 2017-0 Yes Univer s thiazide 25 5-23 ity of mg tablet 00:00: [address] hydroCHLORO 2017-0 Yes Univer s thiazide 25 5-23 ity of mg tablet 00:00: [address] hydroCHLORO 2017-0 Yes Univer s thiazide 25 5-23 ity of mg tablet 00:00: [place] [facility] hydroCHLORO Yes Univer s thiazide 25 5-23 ity of mg tablet 00:00: [place] [facility] Branch hydroCHLORO Yes Univer s thiazide 25 5-23 ity of mg tablet 00:00: [place] [facility] Branch hydroCHLORO Yes Univer s thiazide 25 5-23 ity of mg tablet 00:00: [address] Atenolol Atenolol Yes Eric [address] [facility] Fluoxetine Fluoxetine Yes Eric [address] [facility] [address] HCl HCl [facility] Ferrous Ferrous Yes Eric [address] Sulfate Sulfate [facility] Vitamin C Vitamin C Yes Eric as [facility] Pravastatin Pravastatin Yes Eric [address] Sodium Sodium [facility] Sevelamer Sevelamer Yes Eric [address] Carbonate Carbonate [facility] mixed with [facility] - 30 ml of Memoria water with l meals [facility] Vitamin B Vitamin B Yes Eric as [facility] Complex Complex [facility] directed [facility] Doxazosin Doxazosin Yes Eric [address] [facility] Mesylate Mesylate [facility] Eliquis Eliquis Yes Eric TAKE [address] [facility] TABLET BY [facility] - [facility] TWICE l DAILY FOR Outpati 90 DAYS ent Clinics NIFEdipine NIFEdipine Yes Eric TAKE [address] [facility] [facility] ER ER [facility] TABLET BY [facility] EVERY 12 l HOURS [facility] Metformin Metformin Yes Eric [address] HCl HCl [place] with a [facility] meal [facility] Vitamin D-3 Vitamin D-3 Yes Eric as [facility] directed [facility] Melatonin Melatonin Yes Eric [address] [facility] at bedtime [facility] needed [facility] with food l [facility] Metformin Metformin Yes Eric [address] HCl HCl [place] with a [facility] Immunizations Ordered Immunization Filled Immunization Date Status Commen ts Source Name Name Influenza 2016-01-21 Completed [facility] (Preservative Free) 00:00:00 of Me cordova Influenza 2016-01-21 Completed [facility] (Preservative Free) 00:00:00 of Me dicine Influenza 2016-01-21 Completed [facility] (Preservative Free) 00:00:00 of Me dicine Influenza 2015-01-14 Completed [facility] (Preservative Free) 00:00:00 of Me dicine Pneumococcal 2015-01-14 Completed [facility] ge 13-valent Conjugate 00:00:00 of Me dicine Vaccine Influenza 2015-01-14 Completed [facility] (Preservative Free) 00:00:00 of Me dicine Pneumococcal 2015-01-14 Completed [facility] ge 13-valent Conjugate 00:00:00 of Me dicine Vaccine Influenza 2015-01-14 Completed [facility] (Preservative Free) 00:00:00 of Me dicine Pneumococcal 2015-01-14 Completed [facility] ge 13-valent Conjugate 00:00:00 of Me dicine Vaccine Influenza 2014-02-09 Completed [facility] (Preservative Free) 00:00:00 of Me dicine Influenza 2014-02-09 Completed [facility] (Preservative Free) 00:00:00 of Me dicine Influenza 2014-02-09 Completed [facility] (Preservative Free) 00:00:00 of Me dicine Influenza 2013-01-20 Completed [facility] (Preservative Free) 00:00:00 of Me dicine Influenza 2013-01-20 Completed [facility] (Preservative Free) 00:00:00 of Me dicine Influenza 2013-01-20 Completed [facility] (Preservative Free) 00:00:00 of Me dicine Influenza 2010-12-16 Completed [facility] (Preservative Free) 00:00:00 of Me dicine Influenza 2010-12-16 Completed [facility] (Preservative Free) 00:00:00 of Me dicine Influenza 2010-12-16 Completed [facility] (Preservative Free) 00:00:00 of Me dicine Influenza 2010-02-28 Completed [facility] (Preservative Free) 00:00:00 of Me dicine Influenza 2010-02-28 Completed [facility] (Preservative Free) 00:00:00 of Me dicine Influenza 2010-02-28 Completed [facility] (Preservative Free) 00:00:00 of Me dicine [...] Medicine Body weight 2020-01-22 15:42:00 78.926 kg [facility] 2020-01-22 15:42:00 32.88 kg/m2 [facility] Body height 2020-01-22 15:42:00 154.9 cm [facility] Body weight 2020-01-22 15:42:00 78.926 kg [facility] 2020-01-22 15:42:00 32.88 kg/m2 [facility] Body height 2019-12-25 15:30:00 154.9 cm [facility] Body weight 2019-12-25 15:30:00 78.926 kg [facility] 2019-12-25 15:30:00 32.88 kg/m2 [facility] Body height 2019-12-25 15:30:00 154.9 cm [facility] Body weight 2019-12-25 15:30:00 78.926 kg [facility] 2019-12-25 15:30:00 32.88 kg/m2 [facility] Body height 2019-11-27 14:00:00 154.9 cm [facility] Body weight 2019-11-27 14:00:00 78.926 kg [facility] 2019-11-27 14:00:00 32.88 kg/m2 [facility] Body height 2019-11-27 14:00:00 154.9 cm [facility] Body weight 2019-11-27 14:00:00 78.926 kg [facility] BMI 2019-11-27 14:00:00 32.88 kg/m2 [facility] Body height 2019-11-13 21:22:00 154.9 cm [facility] Body weight 2019-11-13 21:22:00 78.926 kg [facility] BMI 2019-11-13 21:22:00 32.88 kg/m2 [facility] Body height 2019-11-13 21:22:00 154.9 cm [facility] Body weight 2019-11-13 21:22:00 78.926 kg [facility] BMI 2019-11-13 21:22:00 32.88 kg/m2 [facility] HEIGHT 2019-11-04 00:00:00 156 cm WEIGHT 2019-11-04 00:00:00 85.004 kg Procedures Procedure Date / Time Performing Clinician Source Performed AUTHORIZATION FOR 2020-01-30 06:01:00 Doctor Unassigned, No [facility] Name Medical Branch MEDICAL 2019-05-23 06:01:00 [facility]CLEARANCE FORMS [facility] Branch AUTHORIZATION FOR 2019-05-12 06:01:00 Doctor Unassigned, No Univ [facility] RELEASE OF [facility] Branch Plan of Care Planned Activity Planned Date Details Comments Source Future Scheduled ORT - XR SHOULDER Ordered: 11/13/2019 [facility] Test BILAT 4V (CHARGE of Medicine ONLY) [code = 04341] Future Scheduled ORT - XR SHOULDER Ordered: 12/25/2019 [facility] Test BILAT 4V (CHARGE of Medicine ONLY) [code = 85723] Future Scheduled COLON CANCER [facility] ege Test SCREENING: of Medicine COLONOSCOPY [code = COLON CANCER SCREENING: COLONOSCOPY] Future Scheduled MAMMOGRAM ANNUAL [facility] Test [code = MAMMOGRAM of Medicin e ANNUAL] Future Scheduled TETANUS SHOT [facility] Ruiz ege Test (ADULT) [code = of Medicine TETANUS SHOT (ADULT)] Future Scheduled Diabetic foot [facility] Col lege Test examination of Medicine (regime/therapy) [code = 902741187] Future Scheduled ANNUAL DIABETIC [facility] C ollege Test RETINOPATHY of Medicine SCREENING [code = ANNUAL DIABETIC RETINOPATHY SCREENING] Future Scheduled BMI FOLLOW UP PLAN [employer] Test [code = BMI FOLLOW of Medici ne UP PLAN] Future Scheduled HEPATITIS C [facility] Ruiz ege Test SCREENING [code = of Medicin e HEPATITIS C SCREENING] Future Scheduled HIV SCREENING [code [facility] or [place] Test = HIV SCREENING] of Medicine Future Scheduled COLON CANCER [facility] Ruiz ege Test SCREENING: of Medicine COLONOSCOPY [code = COLON CANCER SCREENING: COLONOSCOPY] Future Scheduled CERVICAL CANCER [facility] C ollege Test SCREENING 3 YEAR of Medicine FOLLOW UP [code = CERVICAL CANCER SCREENING 3 YEAR FOLLOW UP] Future Scheduled MEDICARE AWV [facility] Ruiz [facility]ge Test (Initial) [code = of Medicin e MEDICARE AWV (Initial)] Future Scheduled ZOSTER VACCINE (1 [facility] Test of 2) [code = of Medicine ZOSTER VACCINE (1 of 2)] Future Scheduled FLU VACCINE > 6 [facility] C ollege Test MONTHS [code = FLU of Medici ne VACCINE > 6 MONTHS] Future Scheduled MAMMOGRAM ANNUAL [facility] Test [code = MAMMOGRAM of Medicin e ANNUAL] Future Scheduled TETANUS SHOT [facility] Ruiz [facility]ge Test (ADULT) [code = of Medicine TETANUS SHOT (ADULT)] Future Scheduled BMI FOLLOW UP PLAN [facility] Test [code = BMI FOLLOW of Medici ne UP PLAN] Future Scheduled ORT - XR SHOULDER Ordered: 01/22/2020 [facility] Test BILAT 4V (CHARGE of Medicine ONLY) [code = 05626] Future Scheduled ORT - XR ELBOW LEFT Ordered: 01/22/20 20 [facility] Test 3V (CHARGE ONLY) of Medicine [code = 82380] Future Scheduled COLON CANCER [facility] Ruiz ege Test SCREENING: of Medicine COLONOSCOPY [code = COLON CANCER SCREENING: COLONOSCOPY] Future Scheduled MAMMOGRAM ANNUAL [facility] Test [code = MAMMOGRAM of Medicin e ANNUAL] Future Scheduled TETANUS SHOT [facility] Test (ADULT) [code = of Medicine TETANUS SHOT (ADULT)] Future Scheduled Diabetic foot [facility] Col lege Test examination of Medicine (regime/therapy) [code = 487991701] Future Scheduled ANNUAL DIABETIC [facility] Test RETINOPATHY of Medicine SCREENING [code = ANNUAL DIABETIC RETINOPATHY SCREENING] Future Scheduled BMI FOLLOW UP PLAN [facility] Test [code = BMI FOLLOW of Medici ne UP PLAN] Future Scheduled HEPATITIS C [facility] Ru[facility]ge Test SCREENING [code = of Medicin e HEPATITIS C SCREENING] Future Scheduled HEPATITIS C [facility] Test SCREENING [code = of Medicin e HEPATITIS C SCREENING] Future Scheduled HIV SCREENING [code [facility] or [facility] Test = HIV SCREENING] of Medicine Future Scheduled CERVICAL CANCER [facility] C ollege Test SCREENING 3 YEAR of Medicine FOLLOW UP [code = CERVICAL CANCER SCREENING 3 YEAR FOLLOW UP] Future Scheduled MEDICARE AWV [facility] Test (Initial) [code = of Medicin e MEDICARE AWV (Initial)] Future Scheduled ZOSTER VACCINE (1 [facility] College Test of 2) [code = of Medicine ZOSTER VACCINE (1 of 2)] Future Scheduled FLU VACCINE > 6 Postponed from [facility] Test MONTHS [code = FLU 10/25/2019 of Medici ne VACCINE > 6 MONTHS] (Postpone Reason: Patient declined today) Future Scheduled HIV SCREENING [code [facility] or [facility] Test = HIV SCREENING] of Medicine Future Scheduled CERVICAL CANCER [facility] C ollege Test SCREENING 3 YEAR of Medicine FOLLOW UP [code = CERVICAL CANCER SCREENING 3 YEAR FOLLOW UP] Future Scheduled MEDICARE AWV [facility] Test (Initial) [code = of Medicin e MEDICARE AWV (Initial)] Future Scheduled ZOSTER VACCINE (1 [facility] Test of 2) [code = of Medicine ZOSTER VACCINE (1 of 2)] Future Scheduled FLU VACCINE > 6 [facility] Test MONTHS [code = FLU of Medici ne VACCINE > 6 MONTHS] Future Scheduled ORT - XR SHOULDER Ordered: 11/27/2019 [facility] Test BILAT 4V (CHARGE of Medicine ONLY) [code = 21415] Future Scheduled COLON CANCER [facility] Test SCREENING: of Medicine COLONOSCOPY [code = COLON CANCER SCREENING: COLONOSCOPY] Future Scheduled MAMMOGRAM ANNUAL [facility] Test [code = MAMMOGRAM of Medicin e ANNUAL] Future Scheduled TETANUS SHOT [facility] Test (ADULT) [code = of Medicine TETANUS SHOT (ADULT)] Future Scheduled Diabetic foot [facility] Col lege Test examination of Medicine (regime/therapy) [code = 384413968] Future Scheduled ANNUAL DIABETIC [facility] C ollege Test RETINOPATHY of Medicine SCREENING [code = ANNUAL DIABETIC RETINOPATHY SCREENING] Future Scheduled BMI FOLLOW UP PLAN [employer] Test [code = BMI FOLLOW of Medici ne UP PLAN] Future Scheduled HEPATITIS C [facility] Test SCREENING [code = of Medicin e HEPATITIS C SCREENING] Future Scheduled HIV SCREENING [code [facility] [place] Test = HIV SCREENING] of Medicine Future Scheduled CERVICAL CANCER [facility] C ollege Test SCREENING 3 YEAR of Medicine FOLLOW UP [code = CERVICAL CANCER SCREENING 3 YEAR FOLLOW UP] Future Scheduled MEDICARE AWV [facility] Test (Initial) [code = of Medicin e MEDICARE AWV (Initial)] Future Scheduled ZOSTER VACCINE (1 [facility] Test of 2) [code = of Medicine ZOSTER VACCINE (1 of 2)] Future Scheduled FLU VACCINE > 6 [facility] C ollege Test MONTHS [code = FLU of Medici ne VACCINE > 6 MONTHS] Future Scheduled CT SHOULDER RIGHT 1 Occurrences [facility] Test WO CONTRAST [code = starting 11/13/2019 o f Medicine 55025] until 06/12/2020 Encounters Start End Encounter Admission Attending Care Care Encounter Source Date/Time Date/Time Type Type Clinicians Facility Department ID 2021-05-12 [facility] [id number] [place] 12:08:24 [facility] 2021-04-22 [facility] [id number] [place] 15:16:49 [facility] 2021-04-20 [facility] [id number] 12[facility]32:19 Jose 71039 [facility] 2021-04-20 [facility] [id number] 12:22:07 Jose 11899 [facility] 2021-04-20 [facility] [id number] 12:18:27 Jose 52476 [facility] 2021-04-20 [facility] [id number] 12:05:36 Jose 13356 [facility] 2021-04-20 [facility], [facility] [id number] 11:56:16 Jose 65819 [facility] 2021-04-20 [facility] [id number] 11:53:33 Jose 76243 [facility] 2021-04-20 [facility] [id number] 11:48:09 Jose 42922 [facility] 2021-04-20 Out[facility] Beck[facility], [facility] [id number] 11:46:26 Jose 60194 [facility] 2021-04-20 Outpatient Beckham, [facility] [id number] 11:42:27 Jose 84688 [facility] 2021-04-20 Outpatient Beckham, [facility] [id number] 11:40:16 Jose 20981 [facility] 2021-04-20 [facility] [id number] 11:38:56 Jose 33286 [facility] 2021-04-20 Outpatient Beckham, [facility] [id number] 11:17:01 Jose 81601 [facility] 2021-04-20 [facility] [id number] 11:16:49 Jose 73886 [facility] 2021-04-20 [facility] [id number] 11:14:02 Jose 56808 [facility] 2021-01-01 Inpatient CHAR [facility] [id number] [facility] 20:20:01 Med 2021-05-18 2021-05-18 Telephone ElpidioANNIE 6410 1.2.840.114 [id number] [place] 00:00:00 00:00:00 Jose GOMEZ 350.1.13.58 [facility] 9.2.7.2.686 [id number] 2020-02-25 2020-02-25 Outpatient [facility] [id number] [place] 00:00:00 00:00:00 SAJI [facility] 2020-02-25 2020-02-25 Outpatient PALMAYADI, H [facility] [id number] [place] 00:00:00 00:00:00 SAJI 979 Method i 2020-01-30 2020-01-30 Orders Doctor TIANNA 1.2.840.114 [id number] Univers 00:00:00 00:00:00 Only Unassigned, TIMOTHY 350.1.13.10 [facility] [place] 4.2.7.2.686 Red as [id number] [address] 2020-01-30 2020-01-30 Orders Doctor TIANNA 1.2.840.114 [id number] 00:00:00 00:00:00 Only Unassigned, TIMOTHY 350.1.13.10 [place] [facility] 4.2.7.2.686 [id number] [facility] 2020-01-29 2020-01-29 [facility] 1.2.840.114 [id number] [facility] 00:00:00 00:00:00 [place] 350.1.13.10 [facility].2.[place] [phone] Ri dical nal [address] [place] [address] 2020-01-29 2020-01-29 [facility] 1.2.840.114 [id number] 00:00:00 00:00:00 [place] 350.1.13.10 [place] 4.2.7.2.686 Professio [phone] [address] 2020-01-22 2020-01-22 Office BRISEIDA Osullivan 1.2.840.114 [id number] [facility] 10:05:54 11:52:05 Visit Daiana Valerio AMBULATOR 350.1.13.21 College Y 0.2.7.2.686 of [id number] [facility] leticia 600 e 2020-01-22 2020-01-22 Office BRISEIDA Osullivan 1.2.840.114 [id number] 10:05:54 11:52:05 Visit Daiana Valerio AMBULATOR 350.1.13.21 Y 0.2.7.2.686 [id number] 600 2020-01-02 2020-01-02 Outpatient [facility] [id number] [facility] 00:[facility] 00:00:00 [facility] Outpati ent Clinics 2019-12-31 2019-12-31 Outpatient [facility] [id number] [facility] 00:[facility]:00 00:00:00 [facility] l Outpati ent Clinics 2019-12-25 2019-12-25 Office BRISEIDA Osullivan 1.2.840.[id number] [place] [address] 09:47:44 11:32:45 Visit Daiana Valerio AMBULATOR 350.1.13.21 College Y 0.2.7.2.686 of [id number] Medi leticia 600 e 2019-12-25 2019-12-25 Office BRISEIDA sOullivan 1.2.840.114 [id number] [facility] 09:47:44 11:32:45 Visit Daiana Teodoro AMBULATOR 350.1.13.21 Y 0.2.7.2.686 [id number] 600 2019-11-27 2019-11-27 Office BRISEIDA Osullivan 1.2.840.[id number] [place] [address] 08:35:10 09:57:10 Visit Daiana Valerio AMBULATOR 350.1.13.21 College Y 0.2.7.2.686 of [id number] [facility] leticia 600 e 2019-11-27 2019-11-27 Office BRISEIDA Osullivan 1.2.840.114 [id number] 08:35:10 09:57:10 Visit Daiana Valerio AMBULATOR 350.1.13.21 Y 0.2.7.2.686 [id number] 600 2019-11-24 2019-11-24 [facility] [address] 09:17:00 09:17:00 [facility] s [facility] Outpati ent Clinics 2019-11-13 2019-11-13 Office BRISEIDA Osullivan 1.2.840.[id number] [place] [address] 15:52:21 16:41:09 Visit Daiana Valerio AMBULATOR 350.1.13.21 College Y 0.2.7.2.686 of [id number] [facility] leticia 600 e 2019-11-13 2019-11-13 Office BRISEIDA Osullivan 1.2.840.114 [id number] 15:52:21 16:41:09 Visit Daiana Valerio AMBULATOR 350.1.13.21 Y 0.2.7.2.686 [id number] 600 2019-11-12 2019-11-12 [facility] [id number] 09:30:00 09:30:00 [facility] 2019-11-04 2019-11-04 Outpatient [facility] [id number] [facility] 00:00:00 00:00:00 2019-11-04 2019-11-04 Outpatient [facility] [id number] [facility] 00:00:00 00:00:00 2019-10-07 2019-10-07 Outpatient [facility] [id number] [facility] 00:00:00 00:00:00 2019-10-02 2019-10-02 [facility] [id number] 16:22:00 16:22:00 t [facility] ent Clinics 2019-10-02 2019-10-02 [facility] [id number] 10:15:00 10:15:00 t [facility] - [facility] ent Clinics 2019-10-02 2019-10-02 [facility] [id number] 10:00:00 10:00:00 t [employer] s - Drive [facility] ent Clinics 2019-09-02 2019-09-02 Outpatient [facility] [id number] [facility] 00:00:00 00:00:00 [id number] 2019-09-02 2019-09-02 Outpatient EL [facility] [id number] [facility] 00:00:00 00:00:00 2019-07-01 2019-07-01 [facility] [id number] 11:45:00 11:45:00 t [employer] s - Drive [facility] ent [facility] 2019-05-23 2019-05-23 Maurice WYNN 1.2.840.114 [id number] Univers 00:00:00 00:00:00 Only Unassigned, TIMOTHY 350.1.13.10 [facility] [place] [facility] 4.2.7.2.686 Red as [id number] [address] 2019-05-22 2019-05-22 MARGUERITE Campbell 1.2.840.114 [id number] Univers 00:00:00 00:00:00 [place] 350.1.13.10 [place] [phone] Ri dical nal 092 [facility] 2019-05-12 2019-05-12 Orders Doctor TIANNA 1.2.840.114 [id number] Univers 00:00:00 00:00:00 Only Unassigned, TIMOTHY 350.1.13.10 [facility] [place] [facility] 4.2.7.2.686 Red as [phone] [address] 2019-04-10 2019-04-10 [facility] [id number] 11:54:00 11:54:00 [employer] [facility] Medicine Outpati ent Clinics 2019-03-31 2019-03-31 [facility] [id number] 11:20:00 11:20:00 [facility] [employer] [facility] [employer] [facility] Medicine Outpati ent Clinics 2019-03-27 2019-03-27 [facility] [id number] 10:30:00 10:30:00 [facility] Medicine Outpati ent Clinics 2019-03-12 2019-03-12 [facility] [id number] 09:45:00 09:45:00 [facility] [employer] [facility] Medicine Outpati ent Clinics Results Test Description Test Time Test Comments Results Result Comments Source POCT-GLUCOSE METER 2020-08-13 11:15:00 Test Item Value Reference Range Interpretation Comme nts POC-GLUCOSE METER (BEAKER) 99 mg/dL 70-110 : TESTED AT [address] (test code = 1538) MATIAS [place] [id number]: Manager Entry/Techni daniel ID = [id number] for Raeann Roberson POCT-GLUCOSE [id number] 11:15:00 Test Item Value Reference Range Interpretation Comments POC-GLUCOSE METER 79 mg/dL 70-110 : Notified RN/MD: TESTED ([facility]) (test code = AT [address]) [place] [address]: Manager Entry/Techni daniel ID = [id number] for Smita Campuzano POCT-GLUCOSE [id number] 11:15:00 Test Item Value Reference Range Interpretation Comments POC-GLUCOSE METER 106 mg/dL 70-110 : TESTED A T [facility]SL 1317 (BEAKER) (test code [address] [facility], = 1538) [place] [address]: Manager Entry/Techni daniel ID = [id number] for Valentina Piña POCT-GLUCOSE [id number] 11:15:00 Test Item Value Reference Range Interpretation Comments POC-GLUCOSE METER 82 mg/dL 70-110 : TESTED A T [facility] [address]17 (BEAKER) (test code = [address] [facility], 153) [place] [address]: Manager Entry/Techni daniel ID = [id number] for Raeann Lai POCT-GLUCOSE [id number] 11:15:00 Test Item Value Reference Range Interpretation Comments POC-GLUCOSE METER 88 mg/dL 70-110 : TESTED A T [facility] [address]17 (BEAKER) (test code = [address] [facility], 1538) [place] [address]: Manager Entry/Techni daniel ID = [id number] for Raeann Lai POCT-GLUCOSE [id number] 11:15:00 Test Item Value Reference Range Interpretation Comments POC-GLUCOSE METER 83 mg/dL 70-110 : Notified RN/MD: TESTED ([facility]) (test code = AT [address]) [place] [address]: Manager Entry/Techni daniel ID = [id number] for Maria Teresa Charlton POCT-GLUCOSE [id number] 11:15:00 Test Item Value Reference Range Interpretation Comments POC-GLUCOSE METER 110 mg/dL 70-110 : TESTED A T [address] (BEAKER) (test code [address], = 1538) [place] [address]: Manager Entry/Techni daniel ID = [id number] for Maria Teresa Charlton POCT-GLUCOSE [id number] 11:14:00 Test Item Value Reference Range Interpretation Comments POC-GLUCOSE METER 96 mg/dL 70-110 : TESTED A T [address] (BEAKER) (test code = [address], 15[address]) [place] [address] 478: Manager Entry/Techni daniel ID = [id number] for Ali, Yaw POCT-GLUCOSE [id number] 11:14:00 Test Item Value Reference Range Interpretation Comments POC-GLUCOSE METER 97 mg/dL 70-110 : TESTED A T [address] (BEAKER) (test code = [address], 1538) [place] [address]478: Manager Entry/Techni daniel ID = [id number] for Ali, Yaw POCT-GLUCOSE [id number] 11:14:00 Test Item Value Reference Range Interpretation Comments POC-GLUCOSE METER 99 mg/dL 70-110 : TESTED A T [address] (BEAKER) (test code = [address], 1538) [place] [address]478: Manager Entry/Techni daniel ID = [id number] for Jennifer Pete POCT-GLUCOSE [id number] 11:14:00 Test Item Value Reference Range Interpretation Comments POC-GLUCOSE METER 91 mg/dL 70-110 : TESTED A T [address] (BEAKER) (test code = [address], 1538) [place] [address]478: Manager Entry/Techni daniel ID = [id number] for Nwad iufu, Kim POCT-GLUCOSE [id number] 11:14:00 Test Item Value Reference Range Interpretation Comments POC-GLUCOSE METER 75 mg/dL 70-110 : TESTED A T [address] (BEAKER) (test code = [address], 1538) [place] [address]: Manager Entry/Techni daniel ID = [id number] for Estelle Serra SARS-COV2/RT-PCR ([facility])2020-08-10 16:15:00 Test Item Value Reference Range Interpretation Comments SARS-COV2/RT-PCR Negative Not Detected, Performanc e of the Xpert (test code = Negative, See Xpress [id number]) external report SARS-CoV-2/F poly/RSV test for linked [...] sooner.Fact She et for Healthcare Prov iders: [email or web address]://[email or web address]/ Documents/Xpert %20Xpress %09WRIR-XhZ-3-F poly-RSV/30 2-4508%20Rev.%2 0B%20HCP% 20Fact%20Sheet. pdfFact Sheet for Healt hcare Patients: [email or web address] %20Xpress %21HUFN-UcL-8-F poly-RSV/30 2-4507%20Rev.%2 0B%20Pati ent%20Fact%20Sh eet.pdf SARS-COV-2 SLSL Performed at:[facility] PERFORMING LAB [place] [id number] (test code = Aron Recinos [id number]) [place] [address] ph: [phone] RAD, CHEST, 1 VIEW, NON [id number] 15:49:00Reason for exam:->New HemodialysisShould this be performed at the bedside?->Yes [facility] 1965 Sex: FFINAL REPORT CHEST AP PORTABLE SEMIERECT COMPARISON STUDY: 10/30/2018 History provided: Dialysis Radiographically normal-appearing heart and lungs. Tunneled dialysis catheter from right jugular approach with catheter tip at the cavoatrial junction. Signed: Junito Mayberry MDReport Verified Date/Time: 08/10/2020 15:49:39 Reading Location: [facility] Radiology Reading Room HEPATITIS B CORE ANTIBODY, [id number] 11:01:00 Test Item Value Reference Range Interpretation Comments HEPATITIS B CORE TOTAL ANTIBODY Nonreactive Nonreactive (BEAKER) (test code = 497) Manager Entry ID - BANDAR MCOMPREHENSIVE METABOLIC [id number] 05:59:00 Test Item Value Reference Range Interpretation [...] S NOT APPLICABLE FOR DIALYSIS PATIEN TS. Manager Entry ID - LITOOperator ID - LITOOperator ID [...] (test code = 2801) HEPATITIS B SURFACE [id number] 17:24:00 Test Item Value Reference Range Interpretation Comments HEPATITIS B SURFACE ANTIGEN (2) Nonreactive Nonreactive (BEAKER) (test code = 2585) Manager Entry ID - MAYELIN, TUNNELED CATHETER [id number] 10:44:00Reason for Central Line/PICC?->Need for hemodialysis accessReason for exam:->[facility]emodialysis [facility] : 1965 Sex: FFINAL REPORT [...] the patient's medical record by the nurse. Lobsterman: Rigoberto Beckham M.D. Assistant Manager Airside Operations: None. Approach: Right internal jugular vein Estimated [...] needle into the right atrium. A 4 Persian micropuncture sheath was placed and a 0.035 wire was advanced into the IVC. A subcutaneous tunnel was created in the right anterior chest wall by blunt dissection. A 19 cm tip to cuff 15.5 Persian Duraflow 2 catheter was brought through the [...] MDReport Verified Date/Time: 08/09/2020 10:44:42 Reading Location: [facility] Radiology Reading Room BASIC METABOLIC [id number] 04:46:00 Test Item Value Reference Range Interpretation [...] S NOT APPLICABLE FOR DIALYSIS PATIEN TS. Manager Entry ID - [id number] ID - AMXH43Bnrhdefo ID - FYPB47Fajtwrfz ID - WJUU63Aqvzbgnn ID - YPVN42Yjdvjvrg ID - ESEJ01Jhjdzwhy ID - [id number] ID - UBGL76Husyvesw ID - QDKZ20Liesmkrb ID - PEIJ57Zsajrczt ID - GMXC38Cgntyphv ID - WMUT48Qigjbulj ID - [id number] W/PLT COUNT & AUTO [id number] 04:27:00 Test Item Value Reference Range Interpretation [...] PERCENT (BEAKER) (test code = 2801) POCT-GLUCOSE [id number] 06:14:00 Test Item Value Reference Range Interpretation Comments POC-GLUCOSE METER 76 mg/dL 70-110 : TESTED A T [facility] 1317 (BEAKER) (test code = [address], 1538) [facility] 77 478: Manager Entry/Techni daniel ID = [id number] for Tashia Rodney HEMOGLOBIN [id number] 05:40:00 Test Item Value Reference Range Interpretation Comments HEMOGLOBIN A1C (BEAKER) (test code = 4.4 % 4.3-6.1 368) Manager Entry ID - [id number] [id number] 20:58:00 Test Item Value Reference Range Interpretation Comments POC-GLUCOSE METER 118 mg/dL 70-110 H : TESTED A T [facility] 1317 (BEAKER) (test code [address], = 1538) [facility] 77 478: Manager Entry/Techni daniel ID = [id number] for Tashia Rodney VANCOMYCIN LEVEL, [id number] 08:10:00 Test Item Value Reference Range Interpretation Comments VANCOMYCIN TROUGH (BEAKER) (test 17.0 ug/mL 10.0-20.0 code = 522) Manager Entry ID - [id number] 05:26:00 Test Item Value Reference Range Interpretation [...] Borderline 130-159 High 160-189 Very High >=190 Manager Entry ID - xjuu77Jshwwrmr ID - zbfa48Xjyusgyr ID - [id number] METABOLIC [id number] 05:26:00 Test Item Value Reference Range Interpretation [...] S NOT APPLICABLE FOR DIALYSIS PATIEN TS. Manager Entry ID - ohyx34Lohcgoqq ID - ycou38Mrlrfotr ID - zzwu58Qvyutjnm ID - lrfx71Cesvzvuu ID - cxsh46Isyucnjt ID - sghh05Hgodonqb ID - myhq89Zyuhjfrk ID - gyhr16Vwysfojn ID - zxoi63Oubrsvdl ID - [id number] 05:18:00 Test Item Value Reference Range Interpretation Comments MAGNESIUM (BEAKER) (test code = 2.0 mg/dL 1.5-3.0 627) Manager Entry ID - [id number] ID - dvyv62Xwdnsqwh ID - tiqf63Buknmmlb ID - [id number] [id number] 05:16:00 Test Item Value Reference Range Interpretation Comments PHOSPHORUS (BEAKER) (test code = 4.8 mg/dL 2.5-4.5 H 604) Manager Entry ID - [id number] W/PLT COUNT & AUTO [id number] 05:10:00 Test Item Value Reference Range Interpretation [...] PERCENT (BEAKER) (test code = 2801) PROTHROMBIN TIME/[id number] 04:59:00 Test Item Value Reference Range Interpretation Comments PROTIME (BEAKER) 13.2 seconds 9.3-12.0 H Final Infor mation (test code = 759) (Auto Outp ut) INR (BEAKER) (test 1.20 See_Comment Final Inf ormation code = 370) (Auto Output) [Automated mess age] The system ALTHIA generated this result transmitted ref erence range: <=5.90. The reference range was not used to int erpret this result as normal/abnormal . RECOMMENDED COUMADIN/WARFARIN INR THERAPY RANGESSTANDARD DOSE: 2.0 - 3.0 Includes: PROPHYLAXIS forvenous thrombosis, systemic embolization; TREATMENT for venous thrombosis and/or pulmonary embolus.HIGH RISK: Target INR is 2.5-3.5 for patients with mechanical heart valves.HEMOGLOBIN [id number] 04:50:00 Test Item Value Reference Range Interpretation Comments HEMOGLOBIN A1C (BEAKER) (test code = 4.5 % 4.3-6.1 368) Manager Entry ID - [id number] FLUID CULTURE + GRAM [id number] 12:18:00 Test Item Value Reference Range Interpretation Comments CULTURE (BEAKER) (test No growth code = 1095) GRAM STAIN RESULT <1+ White blood cells (BEAKER) (test code = seen 1123) GRAM STAIN RESULT No organisms seen (BEAKER) (test code = 97919) BLOOD [id number] 08:01:00 Test Item Value Reference Range Interpretation Comments CULTURE (BEAKER) (test No growth in 5 days code = 1095) BLOOD [id number] 08:01:00 Test Item Value Reference Range Interpretation Comments CULTURE (BEAKER) (test No growth in 5 days code = 1095) POCT-GLUCOSE [id number] 14:58:00 Test Item Value Reference Range Interpretation Comments POC-GLUCOSE METER 101 mg/dL 70-110 TESTED AT [place] [address] ([facility]) (test code = [facility] 1538) [address] HEMOGLOBIN AND [id number] 12:19:00 Test Item Value Reference Range Interpretation Comments HEMOGLOBIN (BEAKER) (test code = 7.5 GM/DL 11.2-15.7 L 410) HEMATOCRIT ([facility]) (test code = 23.1 % 34.1-44.9 L 411) POCT-GLUCOSE [id number] 08:37:00 Test Item Value Reference Range Interpretation Comments POC-GLUCOSE METER 168 mg/dL 70-110 H TESTED AT [place] [address] ([facility]) (test code = [facility] 1538) [address] LACTIC ACID, [id number] 07:04:00 Test Item Value Reference Range Interpretation Comments LACTATE BLOOD VENOUS 1.9 mmol/L 0.5-2.2 Specime n slightly (2) ([facility]) (test hemolyzed code = 2872) POCT-GLUCOSE [id number] 21:25:00 Test Item Value Reference Range Interpretation Comments POC-GLUCOSE METER 102 mg/dL 70-110 TESTED AT [place] [address] ([facility]) (test code = [facility] 1538) [address] POCT-GLUCOSE [id number] 18:50:00 Test Item Value Reference Range Interpretation Comments POC-GLUCOSE METER 91 mg/dL 70-[address] [facility] 67 (BEAKER) (test code = ANIL [place] [facility] [address] 1538) POCT-GLUCOSE [id number] 13:23:00 Test Item Value Reference Range Interpretation Comments POC-GLUCOSE METER 114 mg/dL 70-110 H TESTED AT [place] [address] (BEAKER) (test code = ANIL Brown [facility] 1538) [address] POCT-GLUCOSE [id number] 09:11:00 Test Item Value Reference Range Interpretation Comments POC-GLUCOSE METER 131 mg/dL 70-110 H TESTED AT [place] [address] (BEAKER) (test code = MICHAELLEPR Kevin [facility] 1538) [address] BASIC METABOLIC [id number] 06:45:00 Test Item Value Reference Range Interpretation [...] S NOT APPLICABLE FOR DIALYSIS PATIEN TS. [id number] 06:40:00 Test Item Value Reference Range Interpretation Comments PHOSPHORUS (BEAKER) (test code = 6.5 mg/dL 2.3-4.7 H 604) [id number] 06:40:00 Test Item Value Reference Range Interpretation Comments MAGNESIUM (BEAKER) (test code = 1.9 mg/dL 1.6-2.6 627) LACTIC ACID, [id number] 06:12:00 Test Item Value Reference Range Interpretation Comments LACTATE BLOOD VENOUS (2) (BEAKER) 2.3 mmol/L 0.5-2.2 H (test code = 2872) CBC W/PLT COUNT & AUTO [id number] 06:05:00 Test Item Value Reference Range Interpretation [...] PERCENT (BEAKER) (test code = 2801) POCT-GLUCOSE [id number] 21:04:00 Test Item Value Reference Range Interpretation Comments POC-GLUCOSE METER 135 mg/dL 70-[address] [facility] 67 [facility] (test code = [facility] 1538) [address] [id number] 17:08:00 Test Item Value Reference Range Interpretation Comments FERRITIN (BEAKER) (test code = 1367 ng/mL 5-275 H 361) POCT-GLUCOSE [id number] 17:00:00 Test Item Value Reference Range Interpretation Comments POC-GLUCOSE METER 137 mg/dL 70-[address] [facility] 67[address] ([facility] (test code = [facility] 1538) [address] IRON, TIBC, % SAT. (WITHOUT FERRITIN)2018-10-30 16:48:00 Test Item Value Reference Range Interpretation Comments IRON (BEAKER) (test code = 547) 53.0 ug/dL 40.0-160.0 TOTAL IRON BINDING CAPACITY 135 ug/dL 250-450 L (BEAKER) (test code = 769) IRON % SATURATION (2) (BEAKER) 39 % 20-55 (test code = 2590) RETICULOCYTE [id number] 16:47:00 Test Item Value Reference Range Interpretation Comments RETICULOCYTE COUNT PCT (BEAKER) (test 2.1 % 0.5-1.7 H code = 575) LACTIC ACID, [id number] 14:17:00 Test Item Value Reference Range Interpretation Comments LACTATE BLOOD VENOUS (2) (BEAKER) 1.7 mmol/L 0.5-2.2 (test code = 2872) HEMOGLOBIN AND [id number] 14:03:00 Test Item Value Reference Range Interpretation Comments HEMOGLOBIN (BEAKER) (test code = 6.4 GM/DL 11.2-15.7 L 410) HEMATOCRIT (BEAKER) (test code = 20.2 % 34.1-44.9 L 411) POCT-GLUCOSE [id number] 11:11:00 Test Item Value Reference Range Interpretation Comments POC-GLUCOSE METER 143 mg/dL 70-[address] [facility] 6720 (BEAKER) (test code = [place] 1538) [address] [id number] 03:47:00 Test Item Value Reference Range Interpretation Comments PROCALCITONIN (BEAKER) (test code 0.76 ng/mL <0.05 H = 3036) SEPSIS RISK (ng/mL)Low: 0.05-0.50Intermediate: 0.51-2.00High: >=[id number] 02:58:00 Test Item Value Reference Range Interpretation Comments PHOSPHORUS (BEAKER) (test code = 6.8 mg/dL 2.3-4.7 H 604) [id number] 02:58:00 Test Item Value Reference Range Interpretation Comments MAGNESIUM (BEAKER) (test code = 1.9 mg/dL 1.6-2.6 627) LACTIC ACID, [id number] 02:53:00 Test Item Value Reference Range Interpretation Comments LACTATE BLOOD VENOUS 1.6 mmol/L 0.5-2.2 Specime n slightly (2) (BEAKER) (test hemolyzed code = 2872) RAD, CHEST, 1 VIEW, NON [id number] 02:31:00Reason for exam:->altered mental statusShould this be [...] No acute cardiopulmonary abnormality. Signed: Sharmin Pleitez [facility] Verified Date/Time: 10/30/2018 02:31:36 OXYGEN SATURATION, [id number] 02:25:00 Test Item Value Reference Range Interpretation Comments O2 SATURATION (MEASURED) (BEAKER) 75.1 % (test code = 1455) If patient has internal jugular ( IJ) or subclavian central line or PICC line. Draw from distal port. Label as central venous oxygen.CBC W/PLT COUNT & AUTO [id number] 00:56:00 Test Item Value Reference Range Interpretation [...] (BEAKER) (test code = 2801) COMPREHENSIVE METABOLIC [id number] 00:46:00 Test Item Value Reference Range Interpretation [...] APPLICABLE FOR DIALYSIS PATIEN TS. LACTIC ACID, [id number] 00:27:00 Test Item Value Reference Range Interpretation Comments LACTATE BLOOD VENOUS (2) (BEAKER) 1.9 mmol/L 0.5-2.2 (test code = 2872) BLOOD GAS, [id number] 00:24:00 Test Item Value Reference Range Interpretation [...] (test code = 1819) 21.0 % POCT-GLUCOSE [id number] 23:54:00 Test Item Value Reference Range Interpretation Comments POC-GLUCOSE METER 249 mg/dL 70-[address] [facility] 6720 (BEAKER) (test code = [place] 1538) [address] BODY FLUID CELL COUNT WITH [id number] 21:57:00 Test Item Value Reference Range Interpretation [...] = 1 % 492) CONTAINER BODY FLUID ([facility]) EDTA Tube (test code = 2873) C. DIFFICILE GDH [id number] 10:06:00 Test Item Value Reference Range Interpretation Comments CDT TOXIN (test code Positive Negative A = [id number]) CDT GDH ANTIGEN Positive Negative A Confirms Beti stridium (test code = difficile-assoc iated [id number]) infection.First line therapy - oral Vancomycin. Co ntinue enteric isolati on until 72 hours after treatment is discontinued and symptoms have r esolved. Testing performed by [employer] Rapid Cassette Assay. For GDH, published sensitivity of the assay is 98.7% compared to cytotoxicity testing. For Toxin AB, published sensitivity is 87.8% and specificity 99.4% compared to cytotoxicity testing.Verification of kit performance was done by the [facility] Microbiology Lab prior to clinical use.POCT-GLUCOSE [id number] 09:14:00 Test Item Value Reference Range Interpretation Comments POC-GLUCOSE METER 109 mg/dL 70-[address] [facility] 6720 ([facility]) (test code = [place] 1538) [address] [id number] 08:46:00 Test Item Value Reference Range Interpretation Comments PROCALCITONIN (AKER) (test code 0.67 ng/mL <0.05 H = 3036) SEPSIS RISK (ng/mL)Low: 0.05-0.50Intermediate: 0.51-2.00High: >=2.01CBC W/PLT COUNT & AUTO [id number] 08:36:00 Test Item Value Reference Range Interpretation Comments WHITE BLOOD CELL COUNT (AKER) 11.1 K/ L 3.5-10.5 H (test code = 775) RED BLOOD CELL COUNT (AKER) 2.32 M/ L 3.93-5.22 L (test code = 761) HEMOGLOBIN (BEAKER) (test code = 7.4 GM/DL 11.2-15.7 L 410) HEMATOCRIT (AKER) (test code = 23.1 % 34.1-44.9 L 411) MEAN CORPUSCULAR VOLUME ([facility]) 99.6 fL 79.4-94.8 H (test code = [...] PERCENT (BEAKER) (test code = 2801) VITAMIN [id number] 07:12:00 Test Item Value Reference Range Interpretation Comments VITAMIN B12 (BEAKER) (test code = 680 pg/mL 213-816 774) TSH/FREE T4 IF [id number] 07:12:00 Test Item Value Reference Range Interpretation Comments THYROID STIMULATING HORMONE 0.94 uIU/mL 0.35-4.94 (BEAKER) (test code = 772) OSMOLALITY, [id number] 07:06:00 Test Item Value Reference Range Interpretation Comments OSMOLALITY, SERUM (BEAKER) (test 296 mOsm/kg 275-295 H code = 615) BASIC METABOLIC [id number] 06:11:00 Test Item Value Reference Range Interpretation [...] S NOT APPLICABLE FOR DIALYSIS PATIEN TS. [id number] 06:05:00 Test Item Value Reference Range Interpretation Comments PHOSPHORUS (BEAKER) (test code = 7.4 mg/dL 2.3-4.7 H 604) [id number] 06:05:00 Test Item Value Reference Range Interpretation Comments MAGNESIUM (BEAKER) (test code = 2.0 mg/dL 1.6-2.6 627) HEPATIC FUNCTION [id number] 06:05:00 Test Item Value Reference Range Interpretation [...] code = 39 U/L 6-55 347) C-REACTIVE [id number] 06:05:00 Test Item Value Reference Range Interpretation Comments C-REACTIVE PROTEIN (BEAKER) (test 1.72 mg/dL 0.00-0.50 H code = 676) [id number] 05:56:00 Test Item Value Reference Range Interpretation Comments AMMONIA (BEAKER) (test code = 348) 16 mol/L 18-72 L RAD, CHEST, 1 VIEW, NON [id number] 21:14:00Reason for exam:->chest painIs the patient ?->UnknownShould [facility] be [facility]?->YesFINAL REPORT Chest, 1 view. History: Chest pain Comparison: Plain radiographthe chest dated 01/15/2018.. Findings: The cardiomediastinal silhouette and pulmonary vasculature are within normal limits for a portable exam. The lungs are clear without evidence of consolidation or effusion. The soft tissues and osseous structures are intact. IMPRESSION: No acute cardiopulmonaryabnormality. Signed: [facility] Verified Date/Time: 10/28/2018 21:14:02 URINALYSIS [id number] 20:54:00 Test Item Value Reference Range Interpretation Comments RBC UA (BEAKER) (test code = 519) 1 /HPF WBC UA (BEAKER) (test code = 520) 10 /HPF SQUAMOUS EPITHELIAL (BEAKER) (test 5 /HPF code = 516) HYALINE CASTS (BEAKER) (test code = 2 /LPF 514) URINALYSIS WITH MICROSCOPIC IF [id number] 20:52:00 Test Item Value Reference Range Interpretation [...] SOURCE(BEAKER) (test code = 2795) BASIC METABOLIC [id number] 20:32:00 Test Item Value Reference Range Interpretation [...] S NOT APPLICABLE FOR DIALYSIS PATIEN TS. [id number] 20:29:00 Test Item Value Reference Range Interpretation Comments MAGNESIUM (BEAKER) (test code = 2.0 mg/dL 1.6-2.6 627) [id number] 20:29:00 Test Item Value Reference Range Interpretation Comments LIPASE (BEAKER) (test code = 749) 65 U/L 8-78 [id number] 20:10:00 Test Item Value Reference Range Interpretation [...] mechanical heart valves.CBC W/PLT COUNT & AUTO [id number] 20:05:00 Test Item Value Reference Range Interpretation [...] (test code = 2801) CT, BRAIN, WITHOUT [id number] 19:38:00Reason for exam:->ALTERED MENTAL STATUSReason for exam:->GENERALIZED [...] SkyMDReport Verified Date/Time: 10/28/2018 19:38:10 Reading Location: [facility] B1 C013V Neuro Reading Room HEMOGLOBIN [id number] 07:56:00 Test Item Value Reference Range Interpretation Comments HEMOGLOBIN A1C (BEAKER) (test code = 6.1 % 4.3-6.1 368) VITAMIN [id number] 06:59:00 Test Item Value Reference Range Interpretation Comments VITAMIN B12 (BEAKER) (test code = 483 pg/mL 213-816 774) TSH/FREE T4 IF [id number] 06:59:00 Test Item Value Reference Range Interpretation Comments THYROID STIMULATING HORMONE 1.74 uIU/mL 0.35-4.94 (BEAKER) (test code = 772) BASIC METABOLIC [id number] 06:04:00 Test Item Value Reference Range Interpretation [...] NOT APPLICABLE FOR DIALYSIS PATIEN TS. LIPID [id number] 05:54:00 Test Item Value Reference Range Interpretation [...] Very High >=190CBC W/PLT COUNT & AUTO [id number] 04:52:00 Test Item Value Reference Range Interpretation [...] (test code = 2801) MR, BRAIN, WITHOUT [id number] 04:11:00FINAL REPORT MRI Brain without contrast Clinical History: TIA/Stroke Technique: MRI of the brain utilizing axial T2, FLAIR, GRE, DWI; sagittal and coronal T1- weighted images. MRAof the head utilizing 3-D dzpy-rw-nhzlup technique, with 3-D reconstructions. MRA of the neck utilizing 2-D and 3-D yfsj-ys-rajsyf technique, with 3-D reconstructions. Comparisons: None Findings:MRI [...] MRA head: No evidence for a major [place] proximal branch vessel occlusion. MRA neck: No evidence of hemodynamically significant stenosis in the cervical carotid or vertebral arteries by NASCET criteria. Signed: Sharmin Pleitez Verified Date/Time: 08/19/2018 04:11:07 Reading Location: [address] Transitional Reading Room MR, MRA, BRAIN, WITHOUT [id number] 04:11:00FINAL REPORT MRI Brain without contrast Clinical History: TIA/Stroke Technique: MRI of the brain utilizing axial T2, FLAIR, GRE, DWI; sagittal and coronal T1-weighted images. MRAof the head utilizing 3-D ahhu-ym-vbmbwz technique, with 3-D reconstructions. MRA of the neck utilizing 2- D and 3-D cbam-kz-ecmdlk technique, with 3-D reconstructions. Comparisons: None Findings:MRI [...] MRA head: No evidence for a major [place] proximal branch vessel occlusion. MRA neck: No evidence of hemodynamically significant stenosis in the cervical carotid or vertebral arteries by NASCET criteria. Signed: Sharmin Pleitez Verified Date/Time: 08/19/2018 04:11:07 Reading Location: [facility] C013 Transitional Reading Room MR, MRA, NECK, WITHOUT IV [id number] 04:11:00Reason for exam:->Stroke/TIAFINAL REPORT MRI Brain without contrast Clinical History: TIA/Stroke Technique: MRI of the brain utilizing axial T2, FLAIR, GRE, DWI; sagittal and coronal T1-weighted images. MRAof the head utilizing 3-D spit-fc-wmamca technique, with 3-D reconstructions. MRA of the neck utilizing 2-D and 3-D pfud-vi-ewthqq technique, with 3-D reconstructions. Comparisons: None Findings:MRI [...] MRA head: No evidence for a major [place] proximal branch vessel occlusion. MRA neck: No evidence of hemodynamically significant stenosis in the cervical carotid or vertebral arteries by NASCET criteria. Signed: Sharmin Pleitez Verified Date/Time: 08/19/2018 04:11:07 Reading Location: [address] Reading Room POCT-GLUCOSE [id number] 21:55:00 Test Item Value Reference Range Interpretation Comments POC-GLUCOSE METER 115 mg/dL 70-110 H TESTED AT [place] [address] ([facility]) (test code = [facility] 1538 [address] POCT-GLUCOSE [id number] 18:29:00 Test Item Value Reference Range Interpretation Comments POC-GLUCOSE METER 93 mg/dL 70-110 TESTED AT [place] [address] ([facility]) (test code = [facility] [address] 1538) CT, CTA [id number] 10:10:00Reason for Exam:->assess iliac vessels, pre kidney transplantAddendum BeginsREPORT STATUS:A Addendum: I agree with the previously described non vascular findings. Signed: NanetteCristopher flores MDReport Verified Date/Time: 06/27/2018 10:10:18 Reading Location: [place] [address] Angio Body Reading RoomAddendum EndsFINAL REPORT CT angiography of the abdominal aorta and pelvic arteries, 25-Jun-18 INDICATION: This is a 53 year oldfemale with end-stage renal disease, presents for pretransplant assessment. This study is performed in an attempt to avoid an invasive procedure. TECHNIQUE: Spiral acquisition before and during intravenous contrast administration using a [employer] multidetector CT scanner. Images were obtained before [...] except for minimal calcific atherosclerosis identified proximally. Academic Coach dimensions of the left and the right external iliac arteries are 6 and 6 mm, respectively. Similarly, the associated pelvic veins are patent with no venous thrombosis identified. Academic Coach dimensions of the left and the right [...] no arterial stenosis or venous thrombosis identified. Academic Coach dimensions of the left and the right external iliacarteries and veins are as described above. 2. Widely patent mesenteric arteries. Patent renal arteries. 3. Other findings as described above. 4. An addendum will be dictated regarding the non-vascular findings by the Ornamental Bronze Worker Radiologist. Signed: Samson Mcgill MDReport Verified Date/Time: 06/25/2018 09:45:12 Reading Location: [place] [id number] Cardiology MRI OCCULT BLOOD, [id number] 00:49:00 Test Item Value Reference Range Interpretation Comments FECAL OCCULT BLOOD (BEAKER) (test Negative Negative code = 618) U/S, ABDOMINAL, [id number] 13:53:00Reason for Exam:->pre transplant evaluationFINAL REPORT Abdominal [...] MDReport Verified Date/Time: 05/02/2017 13:53:56 Reading Location: [facility] B1 P006J Ultrasound Reading Room Electronically signedby: EDWAR THAYER MD on 03/01/2018 01:53 PMOCCULT BLOOD, [id number] 11:11:00 Test Item Value Reference Range Interpretation Comments FECAL OCCULT BLOOD (BEAKER) (test Negative Negative code = 618) [id number] 10:23:00 Test Item Value Reference Range Interpretation Comments PHOSPHORUS (BEAKER) (test code = 3.9 mg/dL 2.3-4.7 604) PROTHROMBIN [id number] 10:21:00 Test Item Value Reference Range Interpretation Comments PROTIME (BEAKER) (test code = 13.2 seconds 11.7-14.7 759) INR (BEAKER) (test code = 370) 1.0 <=5.9 RECOMMENDED COUMADIN/WARFARIN INR THERAPY RANGESSTANDARD DOSE: 2.0 - 3.0 Includes: PROPHYLAXIS forvenous thrombosis, systemic embolization; TREATMENT for venous thrombosis and/or pulmonary embolus.HIGH RISK: Target INR is 2.5-3.5 for patients with mechanical heart valves.URINE [id number] 10:03:00 Test Item Value Reference Range Interpretation Comments CULTURE (BEAKER) (test 40-49,000 col/mL skin code = 1095) johnny CYTOMEGALOVIRUS ANTIBODY, [id number] 10:10:00 Test Item Value Reference Range Interpretation Comments CYTOMEGALOVIRUS, IGG (BEAKER) Positive Negative, Equivocal A (test code = 3429) CMV IgG Result Interpretation: </= 0.8 Al Negative 0.9-1.0 Al Equivocal >/=1.1 Al PositiveCYTOMEGALOVIRUS ANTIBODY, [id number] 10:10:00 Test Item Value Reference Range Interpretation Comments CYTOMEGALOVIRUS IGM ANTIBODY Positive Negative, Equivocal A (BEAKER) (test code = 3437) CMV IgM Result Interpretation: </= 0.8 Al Negative 0.9-1.0 Al Equivocal >/= 1.1 Al PositiveEBV ANTIBODY, [id number] 10:10:00 Test Item Value Reference Range Interpretation [...] Equivocal >/= 1.1 Al PositiveVARICELLA ZOSTER ANTIBODY, [id number] 10:09:00 Test Item Value Reference Range Interpretation Comments VARICELLA ZOSTER IGG (AL) (BEAKER) > (test code = 3197) VARICELLA ZOSTER RESULT INTERPRETATIONS: <=0.8 Al Nonreactive: Presumed non-immune to VZV 0.9-1.0 Al Equivocal >=1.1 Al Reactive: Presumed immune to [id number] 07:38:00 Test Item Value Reference Range Interpretation Comments RPR SCREEN (BEAKER) (test code = Nonreactive Nonreactive 420) CBC W/PLT COUNT & AUTO [id number] 14:38:00 Test Item Value Reference Range Interpretation [...] (test code = 2801) RAD, CHEST, 2 [id number] 12:48:00Reason for Exam:->pre transplant evaluationFINAL REPORT PA and Lateral views of the chest dated 01/15/2018 Clinical information: pre transplant evaluation Comment: Heart is normal in size. Pulmonary vasculature is unremarkable. Lungs are clear. No pulmonary infiltrate or pleural effusion is present. Impression: No active cardiopulmonary disease. Signed: Daiana Anaya Verified Date/Time: 01/15/2018 12:48:30 Reading Location: [address] Radiology Reading Room HEMOGLOBIN [id number] 11:27:00 Test Item Value Reference Range Interpretation Comments HEMOGLOBIN A1C (BEAKER) (test code = 5.6 % 4.3-6.1 368) URINALYSIS W/ [id number] 11:23:00 Test Item Value Reference Range Interpretation [...] = 1585) Rare SOURCE(BEAKER) (test code = 2185) COMPREHENSIVE METABOLIC [id number] 10:41:00 Test Item Value Reference Range Interpretation [...] NOT APPLICABLE FOR DIALYSIS PATIEN TS. URIC [id number] 10:04:00 Test Item Value Reference Range Interpretation [...] H code = 635) HEPATITIS B SURFACE [id number] 10:03:00 Test Item Value Reference Range Interpretation Comments HEPATITIS B SURFACE ANTIGEN (2) Nonreactive Nonreactive (BEAKER) (test code = 2585) HEPATITIS B SURFACE [id number] 10:03:00 Test Item Value Reference Range Interpretation Comments HEPATITIS B SURFACE ANTIBODY 69.3 mIU/mL <8.0 H (BEAKER) (test code = 647) HEPATITIS B CORE ANTIBODY, [id number] 10:03:00 Test Item Value Reference Range Interpretation Comments HEPATITIS B CORE IGM ANTIBODY Nonreactive Nonreactive (BEAKER) (test code = 645) HEPATITIS C [id number] 10:03:00 Test Item Value Reference Range Interpretation Comments HEPATITIS C ANTIBODY (BEAKER) Nonreactive Nonreactive (test code = 367) HIV-1 ANTIGEN WITH HIV-1/2 [id number] 10:03:00 Test Item Value Reference Range Interpretation Comments HIV-1 ANTIGEN WITH HIV 1\T\2 Nonreactive Nonreactive ANTIBODY (2) (BEAKER) (test code = 2586) PTH, [id number] 09:45:00 Test Item Value Reference Range Interpretation Comments PARATHYROID HORMONE INTACT 308.0 pg/mL 8.5-72.5 H (BEAKER) (test code = 577) [id number] 09:31:00 Test Item Value Reference Range Interpretation [...]
[2021-06-09] MEDS ORDERED: LIDOCAINE VISCOUS 2% SOLN 15 ML UDC ONE (16:07)
[2021-06-09] MEDS ORDERED: NA CHLORIDE 0.9% 500 ML ONE (16:07)
[2021-06-09] MEDS ORDERED: METOCLOPRAMIDE 10 MG/2mL INJ ONE (16:07)
[2021-06-09] MEDS ORDERED: MAGNES/ALUMIN/SIMET 30ML UCUP ONE (16:07)
[2021-06-09] MEDS ORDERED: FAMOTIDINE 20 MG/2 ML VIAL IV ONE (16:08)
[2021-06-09 16:34] LABS: Absolute Lymphocytes (CBC) 1.5 K/uL (0.7-4.9); Hematocrit 26.9 % (36.0-45.0); Lymphocytes % 21.3 % (15.3-44.8); MPV 7.5 fL (7.6-11.3); RBC Red Blood Cell Count 2.97 M/uL (3.86-4.86)
[2021-06-09 16:52] LABS: AST/SGOT 16 U/L (15-37); Albumin 2.2 g/dL (3.4-5.0); Alkaline Phosphatase 126 U/L (45-117); BUN Blood Urea Nitrogen 28 mg/dL (7-18); Bicarbonate 29 mmol/L (21-32); Bilirubin Total 0.5 mg/dL (0.2-1.0); Glucose Level 91 mg/dL (74-106); Lipase 122 U/L (73-393); Potassium 3.3 mmol/L (3.5-5.1); Protein, Total 6.3 g/dL (6.4-8.2); Sodium Level 133 mmol/L (136-145)
[2021-06-09 16:53] LABS: ALT/SGPT < 10 U/L (12-78)
--- NOTE | 2021-06-09 17:21 | RAD REPORT ---
EXAM DESCRIPTION: CT - Abdomen Pelvis Wo Contrast - 06/09/2021 5:11 pm CLINICAL HISTORY: pain h/o colitis Abdominal pain COMPARISON: Abdomen Pelvis Wo Contrast dated 05/22/2021 TECHNIQUE: Axial [address] imaging of the abdomen and pelvis was performed without IV contrast. No IV contrast was given because of allergy, abnormal renal function, patient refusal or physician re quest. No oral contrast administered. All CT scans are performed using dose optimization technique as appropriate and may include automated exposure control or mA/KV adjustment according to patient size. FINDINGS: No suspicious findings in the lung bases. The liver, spleen and pancreas show no suspicious findings on non-contrast imaging. Multi stone sheldon lithiasis is present without wall thickening, edema or pericholecystic fluid evident. These numerous stones have been previously detailed. No biliary tree dilatation. 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 Numerous renal pyramid or calyx calcifications are present . There is an 8 millimeter stone at the left UPJ. This is not an acute finding. No significant adren al finding. Isodense renal masses and pyelonephritis cannot be excluded in the absence of IV contrast . Urinary bladder is fully contracted. Peritoneal dialysis catheter is in place. Only a trace amount of free fluid is seen in the dependent portion of the pelvis. No abnormality seen along the course of the catheter. No stomach or small bowel abnormality seen. Moderate stool volume is present in the rectum and distal sigmoid colon. Patient has only minimal diverticulosis. No diverticulitis or acute colon process gus ntifiable. The rectal wall thickening and perirectal soft tissue stranding seen May 22 have reso lved. No free air, pneumatosis or focal inflammatory finding. No hernia, mass or bulky lymphadenopathy. No suspicious bony findings. IMPRESSION: Non-contrast enhanced CT abdomen and pelvis imaging show no acute or emergent finding. No suspicious changes from the May 22 study. Full assessment is limited is the absence of IV contrast.
--- NOTE | 2021-06-09 17:50 | ER ---
Nurse's Notes [facility] Name: Maki Tabares Age: 56 yrs Sex: Female : 1965 Arrival Date: 06/09/2021 Time: 15:27 Bed 24 Private MD: Diagnosis: Nausea with vomiting, unspecified;Abdominal pain, Generalized Presentation: 06/09 15:36 Chief complaint: this is my sister. she has been having a really bad appetite for about tw2 2 weeks. if she eats she throws it up. she is on a peritoneal dialysis daily. she fell day before yesterday from just getting weak. she is not eating anything. i feel like she is starving herself to . i wish they would put her in the hospital and run tests on her. Coronavirus screen: At this time, the client does not indicate any symptoms associated with coronavirus-19. 15:36 Method Of Arrival: Wheelchair tw2 15:38 Chief complaint: Patient states: my stomach hurts all the time. i wake up and i be dry tw2 heaving. then i try to eat something and it comes right back up. i had colitis last time i was here. Ebola Screen: Patient denies travel to an Ebola-affected area in the 21 days before illness onset. Initial Sepsis Screen: Does the patient meet any 2 criteria? No. Patient's initial sepsis screen is negative. Does the patient have a suspected source of infection? No. Patient's initial sepsis screen is negative. Risk Assessment: Do you want to hurt yourself or someone else? Patient reports no desire to harm self or others. Onset of symptoms was June 09, 2021. 15:38 Acuity: TAVIA 3 tw2 Triage Assessment: 15:42 General: Appears in no apparent distress. uncomfortable, Behavior is calm, cooperative, tw2 appropriate for age. Pain: Complains of pain in abdomen. GI: Reports lower abdominal pain, upper abdominal pain, intolerance of fluids, intolerance of food, nausea, vomiting. Historical: - Allergies: 15:40 SHELLFISH; tw2 15:40 Crawfish; tw2 - Home Meds: 15:40 aspirin 81 mg Oral chew once daily [Active]; atenolol 100 mg Oral tab 1 tab once daily tw2 [Active]; Belsomra 10 mg Oral tab 1 tab nightly [Active]; clonidine HCl 0.3 mg Oral tab 1 tab 3 times daily [Active]; clonidine patch 0.3 weekly sunday [Active]; fluoxetine 40 mg Oral cap 1 cap once daily [Active]; furosemide 40 mg Oral tab 1 tab 2 times per day [Active]; glimepiride 4 mg Oral tab 1 tab once daily [Active]; hydralazine 100 mg Oral tab 1 tab 3 times per day [Active]; hydrochlorothiazide 25 mg Oral tab 1 tab once daily [Active]; Klor-Con 10 10 mEq Oral TbER 1 tab once daily [Active]; lisinopril 40 mg Oral tab [Active]; melatonin 5 mg Oral tab nightly [Active]; metformin 500 mg Oral Tb24 2 tabs 2 times per day [Active]; Metoprolol Tartrate 200MG Oral 2 tabs once daily [Active]; nifedipine 90 mg Oral TbER 1 tab once daily [Active]; nifidipine er 30 mg daily [Active]; nifidipine er 90 mg daily [Active]; pravastatin 20 mg Oral tab 1 tab nightly [Active]; Prozac 40 mg Oral cap PRN [Active]; trazodone 100 mg Oral tab 1 tab at bed time [Active]; Vitamin D Oral 50246 unit WEEKLY [Active]; - PMHx: 15:40 Diabetes - NIDDM; Hyperlipidemia; Dialysis; peritoneal; Hypertension; Parkinsons; tw2 - Immunization history:: Client reports receiving the 2nd dose of the Covid vaccine. - Social history:: Smoking status: Patient denies any tobacco usage or history of. Screenin:50 Abuse screen: Denies threats or abuse. Nutritional screening: No deficits noted. tw2 Tuberculosis screening: No symptoms or risk factors identified. Fall Risk Secondary diagnosis (15 points) impaired mobility, Ambulatory Aid- Crutches/Cane/Walker (15 pts). Assessment: 15:58 General: Appears in no apparent distress. comfortable, Behavior is calm, cooperative, ld1 appropriate for age. Pain: Complains of pain in left upper quadrant Pain does not radiate. Pain currently is 6 out of 10 on a pain scale. Pain began Past two weeks on and off Is intermittent. Neuro: Level of Consciousness is awake, alert, obeys commands, Oriented to person, place, time, situation. Cardiovascular: Capillary refill < 3 seconds Patient's skin is warm and dry. Respiratory: Airway is patent Respiratory effort is even, unlabored, Respiratory pattern is regular, symmetrical. GI: Abdomen is round non-distended. GI: Reports intolerance of food, nausea, vomiting. : No signs and/or symptoms were reported regarding the genitourinary system. EENT: No signs and/or symptoms were reported regarding the EENT system. Derm: No signs and/or symptoms reported regarding the dermatologic system. Musculoskeletal: No signs and/or symptoms reported regarding the musculoskeletal system. Vital Signs: 15:38 BP 102 / 60; Pulse 72; Resp 17; Temp 97.9(TE); Pulse Ox 100% on R/A; Weight 74.39 kg; tw2 Height 5 ft. 1 in. (154.94 cm); Pain 6/10; 15:58 BP 130 / 68; Pulse 63; Resp 18; Pulse Ox 100% on R/A; Pain 6/10; ld1 17:41 BP 138 / 60; Pulse 66; Resp 18; Pulse Ox 100% on R/A; ld1 15:38 Body Mass Index 30.99 (74.39 kg, 154.94 cm) tw2 ED Course: 15:27 Patient arrived in ED. rg4 15:40 Triage completed. tw2 15:42 Arm band placed on. tw2 15:43 Bed in low position. Call light in reach. Side rails up X2. Adult w/ patient. Pulse ox tw2 on. NIBP on. Warm blanket given. 15:44 Blas Nunn MD is Attending Physician. jr11 15:52 Christie Garcia RN is Primary Nurse. ld1 15:58 No provider procedures requiring assistance completed. ld1 16:22 Inserted saline lock: 20 gauge in right antecubital area, using aseptic technique. ld1 Blood collected. 17:11 CT Abd/Pelvis - Without Contrast In Process Unspecified. EDMS 18:24 IV discontinued, intact, bleeding controlled, No redness/swelling at site. ld1 Administered Medications: 16:18 Drug: NS 0.9% 500 ml Route: IV; Rate: 1 bolus; Site: right antecubital; ld1 16:18 Drug: Pepcid (famotidine) 20 mg Route: IVP; Site: right antecubital; ld1 16:18 Drug: GI Cocktail without - (Maalox Suspension 30 ml, Lidocaine Liquid 2 % 15 ld1 ml) Route: PO; 16:20 Drug: Reglan (metoCLOPramide) 10 mg Route: IVP; Site: right antecubital; ld1 Outcome: 17:49 Discharge ordered by MD. pham 18:24 Discharged to home via wheelchair, with family. ld1 18:24 Condition: stable 18:24 Discharge instructions given to patient, family, Instructed on discharge instructions, follow up and referral plans. Demonstrated understanding of instructions, follow-up care. 18:24 Patient left the ED. ld1 Signatures: Dispatcher [employer] EDMS Margy Vasquez RN RN tw2 Marilynn Lezama rg4 Christie Garcia RN RN ld1 Blas Nunn MD MD jr11 Corrections: (The following items were deleted from the chart) 15:42 15:36 Chief complaint: this is my sister. she has been having a really bad appetite for tw2 about 2 weeks. if she eats she throws it up. she is a paritineal dialysis daily. she fell day before yesterday from just getting weak. she is not eating anything. i feel like she is starving herself to . i wish they would put her in the hospital and run tests on her tw2 15:52 15:36 Chief complaint: this is my sister. she has been having a really bad appetite for tw2 about 2 weeks. if she eats she throws it up. she is a peritoneal dialysis daily. she fell day before yesterday from just getting weak. she is not eating anything. i feel like she is starving herself to . i wish they would put her in the hospital and run tests on her tw2 15:52 15:38 Chief complaint: Patient states: my stomach hurts all the time. tw2 tw2
--- NOTE | 2021-06-09 17:50 | EDPHYS ---
Physician Documentation [facility] Name: Maki Tabares Age: 56 yrs Sex: Female : 1965 Arrival Date: 06/09/2021 Time: 15:27 Bed 24 Private MD: ANUP Physician Blas Nunn HPI: 06/09 16:02 This 56 yrs old Black Female presents to ER via Wheelchair with complaints of Decreased jr11 Appetite, Weakness, Fall - denies Injury. 16:02 The patient presents to the emergency department with weakness of the entire body, jr11 generalized weakness. Onset: The symptoms/episode began/occurred 2 week(s) ago. Context: occurred at home, pt was seen by me about 2 weeks ago, CT showed colitis. Pt was treated with abx, diarrhea resolved. Pt now with decreased appetite, nausea, and daily episodes of emesis despite TID anti-emetics. No blood no mucus. Pt has chronic 3-5/10 abdominal pain, diffuse, no change from baseline. She does PD dialysis, no complication, no cloudy solution or concern for infection.. Associated signs and symptoms: Pertinent positives: nausea, weakness, Pertinent negatives: fever, paresthesias, syncope. Severity of symptoms: At their worst the symptoms were moderate in the emergency department the symptoms are worse. Historical: - Allergies: 15:40 SHELLFISH; tw2 15:40 Crawfish; tw2 - Home Meds: 15:40 aspirin 81 mg Oral chew once daily [Active]; atenolol 100 mg Oral tab 1 tab once daily 2 [Active]; Belsomra 10 mg Oral tab 1 tab nightly [Active]; clonidine HCl 0.3 mg Oral tab 1 tab 3 times daily [Active]; clonidine patch 0.3 weekly sunday [Active]; fluoxetine 40 mg Oral cap 1 cap once daily [Active]; furosemide 40 mg Oral tab 1 tab 2 times per day [Active]; glimepiride 4 mg Oral tab 1 tab once daily [Active]; hydralazine 100 mg Oral tab 1 tab 3 times per day [Active]; hydrochlorothiazide 25 mg Oral tab 1 tab once daily [Active]; Klor-Con 10 10 mEq Oral TbER 1 tab once daily [Active]; lisinopril 40 mg Oral tab [Active]; melatonin 5 mg Oral tab nightly [Active]; metformin 500 mg Oral Tb24 2 tabs 2 times per day [Active]; Metoprolol Tartrate 200MG Oral 2 tabs once daily [Active]; nifedipine 90 mg Oral TbER 1 tab once daily [Active]; nifidipine er 30 mg daily [Active]; nifidipine er 90 mg daily [Active]; pravastatin 20 mg Oral tab 1 tab nightly [Active]; Prozac 40 mg Oral cap PRN [Active]; trazodone 100 mg Oral tab 1 tab at bed time [Active]; Vitamin D Oral 68565 unit WEEKLY [Active]; - PMHx: 15:40 Diabetes - NIDDM; Hyperlipidemia; Dialysis; peritoneal; Hypertension; Parkinsons; tw2 - Immunization history:: Client reports receiving the 2nd dose of the Covid vaccine. - Social history:: Smoking status: Patient denies any tobacco usage or history of. ROS: 16:02 All other systems are negative. jr11 Exam: 16:02 Constitutional: This is a well developed, well nourished patient who is awake, alert, jr11 and in no acute distress. Head/Face: Normocephalic, atraumatic. Eyes: Extra-ocular motions intact. Lids and lashes normal. Conjunctiva and sclera are non-icteric and not injected. Cornea within normal limits. Periorbital areas with no swelling, redness, or edema. ENT: dry mm Chest/axilla: Normal chest wall appearance and motion. Nontender with no deformity. No lesions are appreciated. Cardiovascular: Regular rate and rhythm with a normal S1 and S2. No gallops, murmurs, or rubs. Normal PMI, no JVD. No pulse deficits. Respiratory: Lungs have equal breath sounds bilaterally, clear to auscultation and percussion. No rales, rhonchi or wheezes noted. No increased work of breathing, no retractions or nasal flaring. Abdomen/GI: Soft, non-tender, with normal bowel sounds. No distension or tympany. No guarding or rebound. No evidence of tenderness throughout. PD catheter c/d/i MS/ Extremity: Pulses equal, no cyanosis. Neurovascular intact. Full, normal range of motion. Neuro: Awake and alert, GCS 15, oriented to person, place, time, and situation. No gross motor or sensory deficits. +cog wheel ridgidity Vital Signs: 15:38 BP 102 / 60; Pulse 72; Resp 17; Temp 97.9(TE); Pulse Ox 100% on R/A; Weight 74.39 kg; tw2 Height 5 ft. 1 in. (154.94 cm); Pain 6/10; 15:58 BP 130 / 68; Pulse 63; Resp 18; Pulse Ox 100% on R/A; Pain 6/10; ld1 17:41 BP 138 / 60; Pulse 66; Resp 18; Pulse Ox 100% on R/A; ld1 15:38 Body Mass Index 30.99 (74.39 kg, 154.94 cm) tw2 MDM: 15:57 Patient medically screened. [facility] 16:02 Data reviewed: vital signs, lab test result(s), EKG. ED course: Patient is a [facility] 56-year-old female with Parkinson's on PD dialysis here with generalized weakness over the last 2 weeks and intractable nausea vomiting. Will treat symptomatically, get lab work, if unable to tolerate p.o., will need admission for further work-up.. 17:48 ED course: I reassessed the patient, patient without any pain tolerating p.o. no jr11 difficulty, no gross lab abnormalities. Nausea vomiting's not intractable. Sister and patient both agree to be able to call Dr. Jennings tomorrow and see him on Sunday. ER warnings given all results explained. 06/09 16:01 Order name: CBC with Diff; Complete Time: 17:09 [facility] 06/09 16:01 Order name: CMP; Complete Time: 17:09 [facility] 06/09 16:01 Order name: Lipase; Complete Time: 17:09 [facility] 06/09 16:01 Order name: CT Abd/Pelvis - Without Contrast; Complete Time: 17:23 [facility] 06/09 16:07 Order name: Troponin High Sensitivity; Complete Time: 17:09 [facility] 06/09 17:31 Order name: COVID-19/FLU A+B (Document "Date of Onset" if Symptomatic) [facility] 06/09 16:01 Order name: IV Saline Lock; Complete Time: 16:18 [facility] 06/09 16:01 Order name: Labs collected and sent; Complete Time: 16:18 [facility] Administered Medications: 16:18 Drug: NS 0.9% 500 ml Route: IV; Rate: 1 bolus; Site: right antecubital; ld1 16:18 Drug: Pepcid (famotidine) 20 mg Route: IVP; Site: right antecubital; ld1 16:18 Drug: GI Cocktail without - (Maalox Suspension 30 ml, Lidocaine Liquid 2 % 15 ld1 ml) Route: PO; 16:20 Drug: Reglan (metoCLOPramide) 10 mg Route: IVP; Site: right antecubital; ld1 Disposition Summary: 06/09/21 17:49 Discharge Ordered Location: Home jr11 Condition: Stable jr11 Diagnosis - Nausea with vomiting, unspecified jr11 - Abdominal pain, Generalized jr11 Discharge Instructions: - Discharge Summary Sheet jr11 - Abdominal Pain, Adult jr11 - Nausea, Adult jr11 Forms: - Medication Reconciliation Form jr11 - Thank You Letter jr11 - Antibiotic Education jr11 - Prescription Opioid Use jr11 Signatures: Dispatcher [employer] EDMargy Jennings RN RN tw2 Christie Garcia RN RN ld1 Blas Nunn MD MD jr11
[2021-06-09 18:31] VITALS: TEMP 97.9; O2SAT 100
[2021-06-09 18:34] VITALS: BP 138/60
[2021-06-09 18:49] LABS: SARS-COV-2 RT PCR NEGATIVE (NEGATIVE)
== END 2021-06-09 18:24 | disposition home or self-care (01) ==
LOC: ER 15:23
DX: R11.2 Nausea with vomiting, unspecified (principal); R10.84 Generalized abdominal pain; R53.1 Weakness; W19.XXXA Unspecified fall, initial encounter; I10 Essential (primary) hypertension; G20 Parkinson's disease; E11.9 Type 2 diabetes mellitus without complications; Z99.2 Dependence on renal dialysis; Z20.822 Contact with and (suspected) exposure to COVID-19; Z79.82 Long term (current) use of aspirin; Z91.013 Allergy to seafood
CPT/HCPCS: 85025; 36415; 84484; 83690; 80053; 0240U; 74176; 96375; 96374; 99284; J2765; J7040

== ENCOUNTER 2021-06-17 09:08 | Day surgery (SDC) | payer OTHER ==
[2021-06-17] MEDS ORDERED: NA CHLORIDE 0.9% 500 ML ONE (09:27)
[2021-06-17] MEDS ORDERED: propofoL 200 MG/20 ML VIAL IV ONE (10:03)
[2021-06-17] MEDS ORDERED: LIDOCAINE 1% MPF 5 ML VIAL ONE (10:03)
[2021-06-17 10:11] VITALS: O2SAT 100
[2021-06-17] MEDS ORDERED: Phenylephrine HCl 10 MG/ML 1 ML VIAL ONE (10:18)
--- NOTE | 2021-06-17 11:01 | ENDO RPT ---
[address], [address] COLONOSCOPY PROCEDURE REPORT EXAM DATE: 06/17/2021 PATIENT NAME: Maki Tabares MR #: [id number] BIRTHDATE: 1965 ATTENDING: Riki Decker DR STATUS: outpatient REMELT WORKER: Tonya Webster and Nesha Loza RN INDICATIONS: The patient is a 56 yr old Female here for a colonoscopy due to Chronic Diarrhea PROCEDURE PERFORMED: Colonoscopy with biopsy - cold polypectomy MEDICATIONS: Per Anesthesia. ESTIMATED BLOOD LOSS: None CONSENT: The patient understands the risks and benefits of the procedure and understands that these risks include, but are not limited to: sedation, allergic reaction, infection, perforation and/or bleeding. Alternative means of evaluation and treatment include, among others: physical exam, x-rays, and/or surgical intervention. The patient elects to proceed with this endoscopic procedure. DESCRIPTION OF PROCEDURE: During intra-op preparation period all mechanical medical equipment was checked for proper function. Hand hygiene and appropriate measures for infection prevention was taken. Procedure, possible complications, alternatives including, but not limited to possibility of bleeding, perforation, tear, infection, sepsis, need for surgery, need for blood transfusion, were explained to the patient. After the risks, benefits and alternatives of the procedure were thoroughly explained, Informed consent was verified, confirmed and timeout was successfully executed by the treatment team. The patient was placed in the left lateral position. A digital rectal exam was performed and revealed internal hemorrhoids. After appropriate level of anesthesia, the scope was passed. The [id number] ([id number]) and [id number] ([id number]) endoscope was introduced through the anus and advanced to the cecum, which was identified by both the appendix and ileocecal valve. The quality of the prep was fair. The instrument was then slowly withdrawn as the colon was fully examined. Scope withdrawal time was 12 minutes. COLON FINDINGS: A polypoid shaped and smooth semi-pedunculated polyp ranging between 3-5mm in size was found at the cecum. A polypectomy was performed with a cold snare. The resection was complete, the polyp tissue was completely retrieved and sent to histology. There was mild diverticulosis noted in the sigmoid colon with associated angulation and tortuosity. No bleeding was noted from the diverticulosis. Was found petechiae and throughout the entire examined colon. A biopsy of the lesion was performed using cold forceps. Moderate sized internal hemorrhoids were found. Retroflexed views revealed no abnormalities. The scope was then completely withdrawn from the patient and the procedure terminated. ADVERSE EVENTS: There were no complications. IMPRESSIONS: 1. Semi-pedunculated polyp ranging between 3-5mm in size was found at the cecum; polypectomy was performed with a cold snare 2. There was mild diverticulosis noted in the sigmoid colon 3. Petechiae and throughout the entire examined colon; biopsy of the lesion was performed using cold forceps 4. Moderate sized internal hemorrhoids RECOMMENDATIONS: 1. avoid NSAIDS for 2 weeks 2. avoid NSAIDS 3. await biopsy results 4. follow-up: office 2 week(s) 5. Monitor for any evidence of rectal bleeding. 6. low fiber / diverticular diet RECALL: for Colonoscopy, pending biopsy results. Pending Biopsy Riki Decker DR eSigned: Riki Decker DR 06/17/2021 11:01 AM cc: CPT CODES: ICD9 CODES: PATIENT NAME: Maki Tabares MR#: [id number]
--- NOTE | 2021-06-17 11:09 | ENDO RPT ---
[address], [address] EGD PROCEDURE REPORT EXAM DATE: 06/17/2021 PATIENT NAME: Maki Tabares MR#: [id number] BIRTHDATE: 1965 ATTENDING: Riki Decker DR STATUS: outpatient CALL BOX WIRER: Tonya Webster and Nesha Loza RN INDICATIONS: The patient is a 56 yr old Female here for an EGD due to abdominal pain and nausea and vomiting PROCEDURE PERFORMED: EGD with biopsy for H. pylori MEDICATIONS: Per Anesthesia. TOPICAL ANESTHETIC: none CONSENT: The patient understands the risks and benefits of the procedure and understands that these risks include, but are not limited to: sedation, allergic reaction, infection, perforation and/or bleeding. Alternative means of evaluation and treatment include, among others: physical exam, x-rays, and/or surgical intervention. The patient elects to proceed with this endoscopic procedure. DESCRIPTION OF PROCEDURE: During intra-op preparation period all mechanical medical equipment was checked for proper function. Hand hygiene and appropriate measures for infection prevention was taken. Procedure, possible complications, and alternatives including but not limited to the possibility of bleeding, perforation, tear, infection, sepsis, need for surgery, need for blood transfusion, and anesthesia related complications were explained to the patient. After the risks, benefits and alternatives of the procedure were thoroughly explained, Informed consent was verified, confirmed and timeout was successfully executed by the treatment team. The patient was placed in the left lateral position. The patient was anesthetized with topical anesthesia. Through the anesthetized oropharyngeal area, the scope was passed without any difficulty. The [id number] ([id number]) and [id number] ([id number]) endoscope was introduced through the mouth and advanced to the second portion of the duodenum. Retroflexed views revealed no abnormalities. The gastroscope was then slowly withdrawn and removed. Duodenitis was found in the bulb and descending duodenum. Multiple biopsies were obtained and sent to pathology. Multiple erosions were found in the body and the antrum of the stomach. Multiple biopsies were obtained and sent to pathology. A biopsy for H. pylori was taken. ADVERSE EVENTS: There were no complications. IMPRESSIONS: 1. Duodenitis was found in the bulb and descending duodenum 2. Multiple erosions were found in the body and the antrum of the stomach RECOMMENDATIONS: 1. acid suppression therapy 2. anti-reflux regimen 3. await biopsy results 4. follow-up: office 2 week(s) 5. avoid NSAIDS 6. follow-up of helicobacter pylori status, treat if indicated REPEAT EXAM: Riki Decker DR eSigned: Riki Decker DR 06/17/2021 11:08 AM cc: CPT CODES: ICD9 CODES: PATIENT NAME: RayshawnMaki MR#: [id number]
[2021-06-17 11:35] VITALS: TEMP 96.8
[2021-06-17 11:52] VITALS: BP 139/68
== END 2021-06-17 11:48 | disposition home or self-care (01) ==
LOC: OR 09:08
PROVIDERS: ATTEND Surgery
PROC: 0DB68ZX Excision of Stomach, Via Natural or Artificial Opening Endoscopic, Diagnostic (ICD-10-PCS; 2021-06-17)
PROC: 0DB58ZX Excision of Esophagus, Via Natural or Artificial Opening Endoscopic, Diagnostic (ICD-10-PCS; 2021-06-17)
PROC: 0DBM8ZX Excision of Descending Colon, Via Natural or Artificial Opening Endoscopic, Diagnostic (ICD-10-PCS; principal; 2021-06-17 11:15)
PROC: 0DB98ZX Excision of Duodenum, Via Natural or Artificial Opening Endoscopic, Diagnostic (ICD-10-PCS; 2021-06-17 11:15)
DX: A04.8 Other specified bacterial intestinal infections (principal); K59.09 Other constipation; R10.9 Unspecified abdominal pain; R11.2 Nausea with vomiting, unspecified; K29.50 Unspecified chronic gastritis without bleeding; K62.89 Other specified diseases of anus and rectum; K57.30 Diverticulosis of large intestine without perforation or abscess without bleeding; K64.8 Other hemorrhoids; K63.5 Polyp of colon; K29.80 Duodenitis without bleeding; K25.9 Gastric ulcer, unspecified as acute or chronic, without hemorrhage or perforation; K52.9 Noninfective gastroenteritis and colitis, unspecified; I10 Essential (primary) hypertension; E11.9 Type 2 diabetes mellitus without complications
CPT/HCPCS: 88312; 88305; 45380; 43239; U0002; J2704; J2370; J7040

== ENCOUNTER 2021-08-10 18:26 | Emergency (ER) | payer OTHER ==
--- OUTSIDE RECORDS SUMMARY | 2021-08-10 18:32 | XMS REPORT | Continuity of Care Document ---
:1965 Author Organization [facility] t Address [address] [place] [address] Care Team Providers Name Role Phone Dagmar SR Primary Care Physician Unavailable Mikey Beckham Attending Clinician Unavailable VENKAT PARDO Attending Clinician Unavailable Elpidio MCKEON Attending Clinician ISRAEL Attending Clinician Unavailable Doctor Unassigned, Name Attending Clinician Unavailable Yoana [...] Expiration Date S ource OPTUM UNITED ONLY [id number] 2017 MCR REPL 00:00:00 UNITED MEDICARE [id number] 2020 HMO 00:00:00 Problems Condition Condition Condition Status Onset Resolution Last Treating Co mments Source Name Details Category Date Date Treatment Clinician Date Nausea and Nausea and Disease Active U T vomiting vomiting 5-10 Health 00:00: 00 Oropharyng Oropharyng Disease Active U T eal eal 2-01 Health dysphagia dysphagia 00:00: 00 Parkinson' Parkinson' Disease Active U T s disease s disease -15 Heal th 00:00: 00 Other Other Disease Active [facility] specified specified 12-13 [place] personal personal 00:00: of risk risk 00 Medicin factors, factors, e not not elsewhere elsewhere classified classified Dysphasia Dysphasia Disease Active [facility] following following 12-02 [place] unspecifie unspecifie [...] (HCCode) (HCCode) Cerebrovas Cerebrovas Disease [facility] College accident accident 00:00: of (CVA) (CVA) 00 Medicin (HCCode) (HCCode) e Type 2 Type 2 Disease Active [facility] diabetes diabetes 12-02 Colleg e mellitus mellitus 00:00: of with with 00 Medicin chronic chronic e kidney kidney disease disease (HCCode) (HCCode) Cerebral Cerebral Disease Active [facility] atheroscle atheroscle 11-28 Co llege rosis rosis 00:00: of 00 Medicin e Dependence Dependence Disease Active B valeria on renal on renal 11-28 Colleg e dialysis dialysis 00:00: of (HCCode) (HCCode) 00 Medici n e Localized Localized Disease Active [facility] edema due edema due 11-28 [place] to fluid to fluid 00:00: of overload overload 00 Medici n e Acute Acute Disease Active [facility] encephalop encephalop 05 Co llege athy athy 00:00: of 00 Medicin e Slurred Slurred Disease Active [facility] speech speech 5- College 00:00: of 00 Medicin e Pre-transp Pre-transp Disease Active 2017-03 Overview : [facility] lant lant 0-23 Last College evaluation evaluation 00:00: Assessmen of for for 00 t & Plan: Medicin chronic chronic She is an e kidney kidney acceptabl disease disease e candidate for kidney transplan t pending further testing and formal review at [facility]. Obesity Obesity Disease Active 2016-03 Univers (BMI (BMI 1-10 ity of 30-39.9) 30-39.9) 00:00: [place] [address] Medical Branch Malfunctio Malfunctio Disease Active 2016-03 Overview : [facility] n of n of 1-07 Added [place] arterioven arterioven 00:00: automatic of ous graft ous graft 00 ally [facility] e for [facility] [id number] Morbid Morbid Disease Active 2016-03 [facility] obesity obesity 0-16 [place] with body with body 00:00: of mass index mass index 00 Me dicin of of e 40.0-49.9 40.0-49.9 [facility] Thrombosis Thrombosis Disease Active 2016-03 Overview : Univers of kidney of kidney 0-13 Added ity of dialysis dialysis 00:00: automatic Red as arterioven arterioven 00 ally from [facility] ous graft, ous graft, request B prakash initial initial for encounter encounter surgery [id number] ESRD (end ESRD (end Disease Active Overview: [facility] stage stage 8- [facility] renal renal 00:00: Assessmen of disease) disease) 00 t & Plan: Med icin on on ESRD due e dialysis [facility] She has been on dialysis since 2017. She does have a potential donor at this time.Adde d automatic ally from request for surgery [id number] ESRD ESRD Disease Active Overview: Univer s needing needing 8- Added ity of dialysis dialysis 00:00: automatic Red as 00 ally from Medical request Branch for surgery [id number] CKD CKD Disease Active [facility] (chronic (chronic 4-25 Colleg e kidney kidney 00:00: of disease) disease) 00 Medici n e Major Major Disease Active [facility] depressive depressive 11-20 Co llege disorder, disorder, 00:00: of recurrent recurrent 00 Medi leticia episode episode e (HCCode) (HCCode) Localized Localized Disease Active 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 6-22 College depression depression 00:00: of with with 00 Medicin psychotic psychotic e features features (HCCode) (HCCode) Allergic Allergic Disease Active [facility] r rhinitis rhinitis 06-28 Colleg e 00:00: of 00 Medicin e Hypertensi Hypertensi Disease Active aylor on on 06-28 College 00:00: of 00 Medicin e Lumbago Lumbago Disease Active [facility] 405 [place] 00:00: of 00 Medicin e Pain in Pain in Disease Active [facility] joint, joint, 06-28 [place] lower leg lower leg 00:00: of 00 Medicin e 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[facility] hyperchole hyperchole 05 Co llege sterolemia sterolemia 00:00: of 00 Medicin e Venous Venous Disease Active [facility] (periphera (periphera 06-28 Co llege l) l) 00:00: of insufficie insufficie 00 Me dicin ncy ncy e Depression Depression Disease Active [facility] 3-23 College 00:00: of 00 Medicin e Allergies, Adverse Reactions, Alerts Allergy Allergy Status Severity Reaction(s) Onset Inactive Treating Comm ents Source Name Type Date Date Clinician CRAYFISH Allergy Active High Anaphylaxis SL [facility] 5 00:00: 00 SHELLFIS Allergy Active Med Itching SLEH H 514 CONTAINI 00:00: NG 00 PRODUCTS Shellfis Propensi Active Hives 2018-03 Only [place] h-Derive ty to 03-29 crawfish Health d adverse 00:00: per Products reaction 00 patient. s Shellfis Propensi Active Hives 2018-03 Only [facility] h-Derive ty to 03-29 crawfish Colleg e d adverse 00:00: per of Products reaction 00 patient. Medi leticia s to e drug Shellfis Propensi Active Hives 2018-03 Only Univer s h ty to 03-29 crawfish ity of Derived adverse 00:00: per [place] reaction 00 patient. Medica l s Branch NO KNOWN Allergy Active [facility] ALLERGIE S shellfis Adverse Active Info Not Commo n h Reaction Available Sp[facility] t - [facility] Social History Social Habit Start Date Stop Date Quantity Comments Source History [facility] Alcohol Std Drinks of Med icine History [facility] Alcohol Binge of Medicine Tobacco use and 2021-08-02 2021-08-02 Smokeless tobacco [place] [facility] exposure 00:00:00 00:00:00 non-user Alcohol intake 2020-01-22 2020-01-22 Lifetime [facility] Col lege 00:00:00 00:00:00 non-drinker of Medicine (finding) History [facility] 2019-11-27 2019-11-27 1 [facility] Alcohol Frequency 00:00:00 00:00:00 of Medi cine Sex Ass[birth year] At [birth year] [place] [facility] 00:00:00 00:00:00 Smoking Status Start Date Stop Date Source Unknown if ever smoked [facility] Co llege of Medicine Never smoked tobacco [facility] Medications Ordered Filled Start Stop Current Ordering Indication Dosage Frequency Signature Comments Components Source Medication Medication Date Date Medication? Clinician (SIG) Name Name cholecalcif Yes 5000U QD Take 5,000 [facility] herbert (D3-5) 5-10 Units by Heal th 5,000 Units 10:53: mouth 1 tablet 50 (one) time each day. midodrine Yes Take 2 UT (Proamatine 5-10 tablets Healt h ) 5 MG 10:53: twice tablet 50 daily ondansetron 2021- Yes [id number] 8mg Q.[id number] Take 1 UT (Zofran) 8 5-01-30 [id number] tablet (8 Health MG tablet 00:00: 05:59 3D mg total) 00 :00 by mouth 3 (three) times a day. rotigotine 2021- Yes [id number] 1{patch QD Place 1 UT (Neupro) 6 5-10 01-30 } patch on Heal th MG/24HR 00:00: 05:59 the skin 1 00 :00 (one) time each day. carbidopa-l 2021- Yes [id number] 2{tbl} Q.[id number] Take 2 UT evodopa 5-10 01-30 [id number] tablets by [facility] (Sinemet) 00:00: 05:59 3D mouth 3 25-100 MG 00 :00 (three) tablet times a day. Eliquis 5 Yes 5mg Q.5D Take 5 mg UT MG tablet 4-27 by mouth 2 Heal th 00:00: (two) 00 times a day. sevelamer Yes MIX 1 UT carbonate 2-24 PACKET AND Heal th (Renvela) 00:00: DRINK 2.4 g 00 THREE packet TIMES DAILY Ascorbic Yes 1{tbl} QD Take 1 UT Acid 2-01 tablet by [facility] (vitamin C) 00:00: mouth 1 250 MG 00 (one) time tablet each day. Melatonin Yes 1{tbl} Take 1 UT 10 MG 2-01 tablet by Health tablet 00:00: mouth 00 every night. Multiple Yes 1{tbl} QD Take 1 UT Vitamin 2-01 tablet by [facility] (Multivitam 00:00: mouth 1 in Adult) 00 (one) time tablet each day. ondansetron 2021- No 8mg Q.[id number] Take 8 mg UT (Zofran) 8 2-01 05-10 [id number] by mouth 3 Health MG tablet 00:00: 00:00 3D (three) 00 :00 times a day. carbidopa-l 2021- No carbidopa UT evodopa 6-02 05-10 25 Health (Sinemet) 00:00: 00:00 mg-levodop 25-100 MG 00 :00 a 100 mg tablet tablet TAKE 2 TABLETS BY MOUTH THREE TIMES DAILY rotigotine 2021- No Neupro 6 UT (Neupro) 6 6-02 05-10 mg/24 hour He alth MG/24HR 00:00: 00:00 transderma 00 :[address] l [address] 1 PATCH TRANSDERMA LLY ONCE DAILY hydrocodone 2019-03 Yes [id number] tk 1 tab [facility] -acetaminop 0-29 [id number] po q 8 h Co llege hen (NORCO) 00:00: prn severe of 7.5-325 MG 00 pain Medicin per tablet e paroxetine 2019-03 Yes TAKE 1 [facility] (PAXIL) 20 0-12 TABLET BY [facility] ege MG tablet 00:00: MOUTH ONCE of 00 DAILY Medicin e pravastatin 2019-03 Yes TAKE 1 [facility] (PRAVACHOL) 0-07 TABLET BY Col lege 40 MG 00:00: MOUTH ONCE of tablet 00 DAILY FOR Medicin 30 DAYS e hydrocodone 2020-0 Yes [id number] tk 1 to 2 [facility] -acetaminop 9-10 [id number] tabs po q C ollege hen (NORCO) 00:00: 6 h prn of 7.5-325 MG 00 severe Medicin per tablet pain e hydrocodone 2019-0 2020- No [id number] tk 1 to 2 [place] -acetaminop 9-10 10-29 [id number] tabs po q College hen (NORCO) 00:00: 00:00 6 h prn of 7.5-325 MG 00 :00 severe Medicin per tablet pain e hydrocodone 2019-0 Yes [id number] tk 1 to 2 [place] -acetaminop 8-20 [id number] tabs po q C ollege hen (NORCO) 00:00: 6 h prn of 7.5-325 MG 00 severe Medicin per tablet pain e hydrocodone 2019-0 2020- No [id number] tk 1 to 2 [place] -acetaminop 8-20 09-10 [id number] tabs po q College hen (NORCO) 00:00: 00:00 6 h prn of 7.5-325 MG 00 :00 severe Medicin per tablet pain e Sevelamer 2019-0 Yes TAKE 1 [place] Carbonate 8-07 TABLET BY Colle ge 800 MG TABS 00:00: MOUTH of 00 THREE Medicin TIMES e DAILY WITH MEALS. (TAKE BOTH POWDER AND TABLETS) Sevelamer 2020-0 Yes TAKE 1 [place] Carbonate 8-07 TABLET BY Colle ge 800 MG TABS 00:00: MOUTH of 00 THREE Medicin TIMES e DAILY WITH MEALS. (TAKE BOTH POWDER AND TABLETS) Sevelamer 2020-0 Yes TAKE 1 [place] Carbonate 8-07 TABLET BY Colle ge 800 MG TABS 00:00: MOUTH of 00 THREE Medicin TIMES e DAILY WITH MEALS. (TAKE BOTH POWDER AND TABLETS) Sevelamer 2020-0 Yes MIX ONE [facility] Carbonate 8-03 PACKET College 0.8 g PACK 00:00: WITH 2OZ. of 00 OF WATER Medicin THEN DRINK e WITH MEAL THREE TIMES A DAY Sevelamer 2020-0 Yes MIX ONE [facility] Carbonate 8-03 PACKET College 0.8 g PACK 00:00: WITH 2OZ. of 00 OF WATER Medicin THEN DRINK e WITH MEAL THREE TIMES A DAY Sevelamer 2020-0 Yes MIX ONE [facility] Carbonate 8-03 PACKET [place] 0.8 g PACK 00:00: WITH 2OZ. of 00 OF WATER Medicin THEN DRINK e WITH MEAL THREE TIMES A DAY ELIQUIS 5 2020-0 Yes TAKE 1 [facility] MG TABS 7-30 TABLET BY [place] 00:00: MOUTH of 00 TWICE Medicin DAILY FOR e 90 DAYS metformin 2019-0 Yes TAKE 1 [place] (GLUCOPHAGE 7-30 TABLET BY Col lege ) 500 MG 00:00: MOUTH ONCE of tablet 00 DAILY WITH Medicin A MEAL FOR e 90 DAYS ELIQUIS 5 2019-0 Yes TAKE 1 [place] MG TABS 7-30 TABLET BY [place] 00:00: MOUTH of 00 TWICE Medicin DAILY FOR e 90 DAYS metformin 2019-0 Yes TAKE 1 [facility] (GLUCOPHAGE 7-30 TABLET BY Col lege ) 500 MG 00:00: MOUTH ONCE of tablet 00 DAILY WITH Medicin A MEAL FOR e 90 DAYS ELIQUIS 5 2019-0 Yes TAKE 1 [facility] MG TABS 7-30 TABLET BY [place] 00:00: MOUTH of 00 TWICE Medicin DAILY FOR e 90 DAYS metformin 2019-0 Yes TAKE 1 [facility] (GLUCOPHAGE 7-30 TABLET BY Col lege ) 500 MG 00:00: MOUTH ONCE of tablet 00 DAILY WITH Medicin A MEAL FOR e 90 DAYS spironolact 2020-0 Yes TAKE 1 [facility] one 7-29 TABLET BY [place] (ALDACTONE) 00:00: MOUTH ONCE of 25 MG 00 DAILY Medicin tablet e spironolact 2020-0 Yes TAKE 1 [facility] one 7-29 TABLET BY [place] (ALDACTONE) 00:00: MOUTH ONCE of 25 MG 00 DAILY Medicin tablet e spironolact 2020-0 Yes TAKE 1 [facility] one 7-29 TABLET BY [place] (ALDACTONE) 00:00: MOUTH ONCE of 25 MG 00 DAILY Medicin tablet e atenolol 2020-0 Yes TAKE 1 [place] (TENORMIN) 7-10 TABLET BY [place] [facility] 50 MG 00:00: MOUTH ONCE of tablet 00 DAILY Medicin e clonidine 2020-0 Yes TAKE 1 [facility] (CATAPRESS) 7-10 TABLET BY Col lege 0.3 [...] of tablet 00 DAILY Medicin e clonidine 2019-0 Yes TAKE 1 [facility] (CATAPRESS) 7-10 TABLET BY Col lege 0.3 MG 00:00: MOUTH ONCE of tablet 00 DAILY Medicin e doxazosin 2019-0 Yes TAKE 1 [place] (CARDURA) 8 7-10 TABLET BY Col lege MG tablet 00:00: MOUTH ONCE of 00 DAILY Medicin e atenolol 2019-0 Yes TAKE 1 [place] (TENORMIN) 7-10 TABLET BY [place] 50 MG 00:00: MOUTH ONCE of tablet 00 DAILY Medicin e clonidine 2019-0 Yes TAKE 1 [place] (CATAPRESS) 7-10 TABLET BY Col lege 0.3 MG 00:00: MOUTH ONCE of tablet 00 DAILY Medicin e doxazosin 2019-0 Yes TAKE 1 [facility] (CARDURA) 8 7-10 TABLET BY Col lege MG tablet 00:00: MOUTH ONCE of 00 DAILY Medicin e ascorbic 2018-03 Yes 500mg Take 500 Univ ers acid, 1-04 mg by ity of vitamin C, 16:36: mouth. [place] 500 mg 39 Medical tablet Branch calcitriol 2018-03 Yes .25ug Take 0.25 U nivers 0.25 mcg 1-04 mcg by ity of capsule 16:36: mouth. [place] 39 Medical Branch Cholecalcif 2018-03 Yes 5000U [...] by ity o f 16:36: mouth at [place] [address] bedtime. Medical Branch ascorbic 2018-03 Yes 500mg Take 500 Univ ers acid, 1-04 mg by ity of vitamin C, 16:36: mouth. [place] 500 mg 39 Medical tablet Branch calcitriol 2018-03 Yes .25ug Take 0.25 U nivers 0.25 mcg 1-04 mcg by ity of capsule 16:36: mouth. [place] [address] Medical Branch Cholecalcif 2018-03 Yes 5000U Take [...] by ity o f 16:36: mouth at [place] [address] bedtime. Medical Branch ascorbic 2018-03 Yes 500mg Take 500 Univ ers acid, 1-04 mg by ity of vitamin C, 16:36: mouth. [place] 500 mg 39 Medical tablet Branch calcitriol 2018-03 Yes .25ug Take 0.25 U nivers 0.25 mcg 1-04 mcg by ity of capsule 16:36: mouth. [place] [address] Medical Branch Cholecalcif 2018-03 Yes 5000U Take [...] by ity o f 16:36: mouth at [place] [address] bedtime. Medical Branch ascorbic 2018-03 Yes 500mg Take 500 Univ ers acid, 1-04 mg by ity of vitamin C, 16:36: mouth. [place] 500 mg 39 Medical tablet Branch calcitriol 2018-03 Yes .25ug Take 0.25 U nivers 0.25 mcg 1-04 mcg by ity of capsule 16:36: mouth. [place] [address] Medical Branch Cholecalcif 2018-03 Yes 5000U Take [...] by ity o f 16:36: mouth at [place] [address] bedtime. Medical Branch ascorbic 2018-03 Yes 500mg Take 500 Univ ers acid, 1-04 mg by ity of vitamin C, 16:36: mouth. [place] 500 mg 39 Medical tablet Branch calcitriol 2018-03 Yes .25ug Take 0.25 U nivers 0.25 mcg 1-04 mcg by ity of capsule 16:36: mouth. [place] [address] Medical Branch Cholecalcif 2018-03 Yes 5000U Take [...] by ity o f 16:36: mouth at [place] [address] bedtime. Medical Branch ascorbic 2018-03 Yes 500mg Take 500 Univ ers acid, 1-04 mg by ity of vitamin C, 16:36: mouth. [place] 500 mg 39 Medical tablet Branch calcitriol 2018-03 Yes .25ug Take 0.25 U nivers 0.25 mcg 1-04 mcg by ity of capsule 16:36: mouth. [place] [address] Medical Branch Cholecalcif 2018-03 Yes 5000U Take [...] by ity o f 16:36: mouth at [place] [address] bedtime. Medical Branch aspirin 81 2018-03 Yes 81mg Take 81 mg U nivers mg EC 1-04 by mouth ity of tablet 16:32: daily. [place] [address] Medical Branch glimepiride 2018-03 Yes 4mg Take 4 mg U nivers 4 mg tablet 1-04 by mouth ity of 16:32: daily with [place] [address] breakfast. Medical Branch aspirin 81 2018-03 Yes 81mg Take 81 mg U nivers mg EC 1-04 by mouth ity of tablet 16:32: daily. [place] [address] Medical Branch glimepiride 2018-03 Yes 4mg Take 4 mg U nivers 4 mg tablet 1-04 by mouth ity of 16:32: daily with [place] [address] breakfast. Medical Branch aspirin 81 2018-03 Yes 81mg Take 81 mg U nivers mg EC 1-04 by mouth ity of tablet 16:32: daily. [place] [address] Medical Branch glimepiride 2018-03 Yes 4mg Take 4 mg U nivers 4 mg tablet 1-04 by mouth ity of 16:32: daily with [place] 24 breakfast. Medical Branch aspirin 81 2018-03 Yes 81mg Take 81 mg U nivers mg EC 1-04 by mouth ity of tablet 16:32: daily. [place] [address] Medical Branch glimepiride 2018-03 Yes 4mg Take 4 mg U nivers 4 mg tablet 1-04 by mouth ity of 16:32: daily with [place] 24 breakfast. Medical Branch aspirin 81 2018-03 Yes 81mg Take 81 mg U nivers mg EC 1-04 by mouth ity of tablet 16:32: daily. [place] [address] Medical Branch glimepiride 2018-03 Yes 4mg Take 4 mg U nivers 4 mg tablet 1-04 by mouth ity of 16:32: daily with [place] 24 breakfast. Medical Branch aspirin 81 2018-03 Yes 81mg Take 81 mg U nivers mg EC 1-04 by mouth ity of tablet 16:32: daily. [place] [address] Medical Branch glimepiride 2018-03 Yes 4mg Take 4 mg U nivers 4 mg tablet 1-04 by mouth ity of 16:32: daily with [place] 24 breakfast. Medical Branch metFORMIN 2018-03 Yes TAKE 1 Univer s 500 mg 0-08 TABLET BY ity of tablet 00:00: MOUTH ONCE 00 DAILY WITH Medical A MEAL FOR Branch 90 DAYS metFORMIN 2018-03 Yes TAKE 1 Univer s 500 mg 0-08 TABLET BY ity of tablet 00:00: MOUTH ONCE 00 DAILY WITH Medical A MEAL FOR Branch 90 DAYS metFORMIN 2018-03 Yes TAKE 1 Univer s 500 mg 0-08 TABLET BY ity of tablet 00:00: MOUTH ONCE 00 DAILY WITH Medical A MEAL FOR Branch 90 DAYS metFORMIN 2018-03 Yes TAKE 1 Univer s 500 mg 0-08 TABLET BY ity of tablet 00:00: MOUTH ONCE [place] 00 DAILY WITH Medical A MEAL FOR Branch 90 DAYS metFORMIN 2018-03 Yes TAKE 1 Univer s 500 mg 0-08 TABLET BY ity of tablet 00:00: MOUTH ONCE 00 DAILY WITH Medical A MEAL FOR Branch 90 DAYS metFORMIN 2018-03 Yes TAKE 1 Univer s 500 mg 0-08 TABLET BY ity of tablet 00:00: MOUTH ONCE [place] 00 DAILY WITH Medical A MEAL FOR Branch 90 DAYS ONETOUCH 2018-03 Yes USE Univers VERIO FLEX 0-02 DIRECTED ity o f Misc 00:00: ONCE DAILY [place] [facility] ONETOUCH 2018-03 Yes USE Univers VERIO FLEX 0-02 DIRECTED ity o f Misc 00:00: ONCE DAILY [place] [facility] ONETOUCH 2019-1 Yes USE Univers VERIO FLEX 0-02 DIRECTED ity o f Misc 00:00: ONCE DAILY [place] [facility] ONETOUCH 2019-1 Yes USE Univers VERIO FLEX 0-02 DIRECTED ity o f Misc 00:00: ONCE DAILY [place] [facility] ONETOUCH 2019-1 Yes USE Univers VERIO FLEX 0-02 DIRECTED ity o f Misc 00:00: ONCE DAILY [place] [facility] ONETOUCH 2019-1 Yes USE Univers VERIO FLEX 0-02 DIRECTED ity o f Misc 00:00: ONCE DAILY [place] [facility] clopidogrel 2019-0 Yes 75mg Take 75 mg Univers 75 mg 6-17 by mouth. ity of tablet 00:00: [place] [facility] clopidogrel 2019-0 Yes 75mg Take 75 mg Univers 75 mg 6-17 by mouth. ity of tablet 00:00: [place] [facility] clopidogrel 2019-0 Yes 75mg Take 75 mg Univers 75 mg 6-17 by mouth. ity of tablet 00:00: [place] [facility] clopidogrel 2019-0 Yes 75mg Take 75 mg Univers 75 mg 6-17 by mouth. ity of tablet 00:00: [place] [facility] clopidogrel 2019-0 Yes 75mg Take 75 mg Univers 75 mg 6-17 by mouth. ity of tablet 00:00: [place] [facility] clopidogrel 2019-0 Yes 75mg Take 75 mg Univers 75 mg 6-17 by mouth. ity of tablet 00:00: [place] [facility] acetaminoph 2017 Yes 1{tbl} Take 1 Un mike en-codeine [...] skin as [place] 00 needed. Medical Branch pravastatin Yes 20mg Take 20 mg Univers 20 mg 8-02 by mouth ity of tablet 00:00: at [place] 00 bedtime. Medical Branch pravastatin Yes 20mg Take 20 mg Univers 20 mg 8-02 by mouth ity of tablet 00:00: at [place] [address] bedtime. Medical Branch pravastatin 2017-0 Yes 20mg Take 20 mg Univers 20 mg 8-02 by mouth ity of tablet 00:00: at [place] [address] bedtime. Medical Branch pravastatin 2017-0 Yes 20mg Take 20 mg Univers 20 mg 8-02 by mouth ity of tablet 00:00: at [place] [address] bedtime. Medical Branch pravastatin 2017-0 Yes 20mg Take 20 mg Univers 20 mg 8-02 by mouth ity of tablet 00:00: at [place] [address] bedtime. Medical Branch pravastatin 2017-0 Yes 20mg Take 20 mg Univers 20 mg 8-02 by mouth ity of tablet 00:00: at [place] [address] bedtime. [facility] Branch atenolol 50 Yes 50mg Take 50 mg Univers mg tablet 7-20 by mouth ity of 00:00: daily. [facility] atenolol 50 Yes 50mg Take 50 mg Univers mg tablet 7-20 by mouth ity of 00:00: daily. [facility] atenolol 50 Yes 50mg Take 50 mg Univers mg tablet 7-20 by mouth ity of 00:00: daily. [facility] atenolol 50 Yes 50mg Take 50 mg Univers mg tablet 7-20 by mouth ity of 00:00: daily. [facility] atenolol 50 Yes 50mg Take 50 mg Univers mg tablet 7-20 by mouth ity of 00:00: daily. [facility] atenolol 50 Yes 50mg Take 50 mg Univers mg tablet 7-20 by mouth ity of 00:00: daily. [facility] JANUVIA 50 Yes 50mg Take 50 mg U nivers mg tablet 7-17 by mouth ity of 00:00: daily. [facility] JANUVIA 50 0 Yes 50mg Take 50 mg U nivers mg tablet 7-17 by mouth ity of 00:00: daily. [facility] JANUVIA 50 0 Yes 50mg Take 50 mg U nivers mg tablet 7-17 by mouth ity of 00:00: daily. [facility] JANUVIA 50 Yes 50mg Take 50 mg U nivers mg tablet 7-17 by mouth ity of 00:00: daily. Medical Branch JANUVIA 50 2017-0 Yes 50mg Take 50 mg U nivers mg tablet 7-17 by mouth ity of 00:00: daily. Medical Branch JANUVIA 50 2017-0 Yes 50mg Take 50 mg U nivers mg tablet 7-17 by mouth ity of 00:00: daily. Medical Branch ramipril 5 2017-0 Yes 5mg Take 5 mg Un mike mg capsule 7-14 by mouth ity o f 00:00: every 00 evening. Medical Branch acetaminoph 2017-0 Yes 1{tbl} Take 1 Un mike en-codeine 7-14 tablet by ity of 300-30 mg 00:00: mouth [place] tablet 00 every 6 Medical (six) Branch hours as needed. acetaminoph 2017-0 Yes 1{tbl} Take 1 Un mike en-codeine 7-14 tablet by ity of 300-30 mg 00:00: mouth [place] tablet 00 every 6 Medical (six) Branch hours as needed. doxazosin 4 2016-0 Yes 4mg Take 4 mg U nivers mg tablet 7-14 by mouth 2 ity of 00:00: (two) 00 times Medical daily. Branch ramipril 5 2016-0 Yes 5mg Take 5 mg Un mike mg capsule 7-14 by mouth ity o f 00:00: every 00 evening. Medical Branch acetaminoph 2017-0 Yes [...] by mouth ity o f 00:00: every 00 evening. Medical Branch ramipril 5 2017-0 Yes 5mg Take [...] by mouth ity o f 00:00: every 00 evening. Medical Branch acetaminoph Yes 1{tbl} Take 1 Un mike en-codeine 7-14 tablet by ity of 300-30 mg 00:00: mouth [place] tablet 00 every 6 Medical (six) Branch hours as needed. doxazosin 4 Yes 4mg Take 4 mg U nivers mg tablet 7-14 by mouth 2 ity of 00:00: (two) [place] 00 times Medical daily. Branch BELSOMRA 10 Yes 10mg 10 mg Unive rs mg Tab 6-21 every ity of 00:00: evening. Medical Branch BELSOMRA 10 Yes 10mg 10 mg Unive rs mg Tab 6-21 every ity of 00:00: evening. Medical Branch BELSOMRA 10 Yes 10mg 10 mg Unive rs mg Tab 6-21 every ity of 00:00: evening. Medical Branch BELSOMRA 10 Yes 10mg 10 mg Unive rs mg Tab 6-21 every ity of 00:00: evening. [facility] BELSOMRA 10 2016-0 Yes 10mg 10 mg Unive rs mg Tab 6-21 every ity of 00:00: evening. Medical Branch BELSOMRA 10 2016-0 Yes 10mg 10 mg Unive rs mg Tab 6-21 every ity of 00:00: evening. [facility] KLOR-CON 2017-0 Yes Univers M10 10 mEq 6-20 ity of tablet 00:00: [facility] KLOR-CON 2016-0 Yes Univers M10 10 mEq 6-20 ity of tablet 00:00: [facility] KLOR-CON 2016-0 Yes Univers M10 10 mEq 6-20 ity of tablet 00:00: [facility] KLOR-CON 2016-0 Yes Univers M10 10 mEq 6-20 ity of tablet 00:00: [facility] KLOR-CON 2016-0 Yes Univers M10 10 mEq 6-20 ity of tablet 00:00: [facility] KLOR-CON 2016-0 Yes Univers M10 10 mEq 6-20 ity of tablet 00:00: [facility] cloniDINE 2017-0 Yes .1mg Take 0.1 Univ ers 0.1 mg 5-25 mg by ity of tablet 00:00: mouth 2 ([facility]) Medical times Branch daily. cloniDINE 2017-0 Yes .1mg Take 0.1 Univ ers 0.1 mg 5-25 mg by ity of tablet 00:00: mouth 2 (two) Medical times Branch daily. cloniDINE 2017-0 Yes .1mg Take 0.1 Univ ers 0.1 mg 5-25 mg by ity of tablet 00:00: mouth 2 (two) Medical times Branch daily. cloniDINE 2017-0 Yes .1mg Take 0.1 Univ ers 0.1 mg 5-25 mg by ity of tablet 00:00: mouth 2 [place] (two) Medical times Branch daily. cloniDINE 2017-0 Yes .1mg Take 0.1 Univ ers 0.1 mg 5-25 mg by ity of tablet 00:00: mouth 2 [place] (two) Medical times Branch daily. cloniDINE 2017-0 Yes .1mg Take 0.1 Univ ers 0.1 mg 5-25 mg by ity of tablet 00:00: mouth 2 [place] [id number] (two) Medical times Branch daily. NIFEdipine Yes 90mg Take 90 mg U nivers XL 90 mg 24 5-24 by mouth ity of hr tablet 00:00: daily. [place] [facility] NIFEdipine Yes 90mg Take 90 mg U nivers XL 90 mg 24 5-24 by mouth ity of hr tablet 00:00: daily. [address] NIFEdipine Yes 90mg Take 90 mg U nivers XL 90 mg 24 5-24 by mouth ity of hr tablet 00:00: daily. [place] [facility] NIFEdipine Yes 90mg Take 90 mg U nivers XL 90 mg 24 5-24 by mouth ity of hr tablet 00:00: daily. [address] NIFEdipine Yes 90mg Take 90 mg U nivers XL 90 mg 24 5-24 by mouth ity of hr tablet 00:00: daily. [address] NIFEdipine Yes 90mg Take 90 mg U nivers XL 90 mg 24 5-24 by mouth ity of hr tablet 00:00: daily. [address] hydroCHLORO 0 Yes Univer s thiazide 25 5-23 ity of mg tablet 00:00: [address] hydroCHLORO 0 Yes Univer s thiazide 25 5-23 ity of mg tablet 00:00: [address] hydroCHLORO 2016-0 Yes Univer s thiazide 25 5-23 ity of mg tablet 00:00: [address] hydroCHLORO 0 Yes Univer s thiazide 25 5-23 ity of mg tablet 00:00: [address] hydroCHLORO 2017-0 Yes Univer s thiazide 25 5-23 ity of mg tablet 00:00: [address] hydroCHLORO [address] Yes Univer s thiazide 25 5-23 ity of mg tablet 00:00: [address] Ferrous Ferrous Yes Eric 1 tablet Co mmon Sulfate Sulfate Rodriguez [facility] Vitamin C Vitamin C Yes Eric as Co mmon Rodriguez directed [facility] Pravastatin Pravastatin Yes Eric 1 tablet Common Sodium Sodium Rodriguez [facility] Sevelamer Sevelamer Yes Eric 1 packet Common Carbonate Carbonate Rodriguez mixed with Spirit 30 ml of - [facility] water with [facility] Vitamin B Vitamin B Yes Eric as Co mmon Complex Complex Rodriguez directed Spiri t - [facility] Doxazosin Doxazosin Yes Eric 1 tablet Common Mesylate Mesylate Rodriguez [facility] Eliquis Eliquis Yes Eric TAKE 1 Comm on Rodriguez TABLET BY Spirit MOUTH - CHI TWICE St DAILY FOR [facility] 90 DAYS [facility] NIFEdipine NIFEdipine Yes Eric TAKE 1 Common ER ER Rodriguez TABLET BY Spirit MOUTH - [facility] EVERY [address] HOURS [facility] Metformin Metformin Yes Eric 1 tablet Common HCl HCl Rodriguez with a Spirit meal - CHI [facility] Vitamin D-3 Vitamin D-3 Yes Eric as Common Rodriguez directed [facility] Melatonin Melatonin Yes Eric 1 capsule Common Rodriguez at bedtime Spirit as needed - [facility]I with food [facility] Metformin Metformin Yes Eric 1 tablet Common HCl HCl Rodriguez with a Spirit meal [facility] Atenolol Atenolol Yes Eric 1 tablet Common Rodriguez [facility] Fluoxetine Fluoxetine Yes Eric 1 capsule Common HCl HCl Rodriguez [facility] Immunizations Ordered Immunization Filled Immunization Date Status Commen ts Source Name Name Influenza 2016-01-21 Completed [facility] (Preservative Free) 00:00:00 of Me dicine Influenza 2016-01-21 Completed [facility] (Preservative Free) 00:00:00 of Me dicine Influenza 2016-01-21 Completed [facility] (Preservative Free) 00:00:00 of Me dicine Influenza 2015-01-14 Completed [facility] (Preservative Free) 00:00:00 of Me dicine Pneumococcal 2015-01-14 Completed [facility] 13-valent Conjugate 00:00:00 of Me dicine Vaccine Influenza 2015-01-14 Completed [facility] (Preservative Free) 00:00:00 of Me dicine Pneumococcal 2015-01-14 Completed [facility] 13-valent Conjugate 00:00:00 of Me dicine Vaccine Influenza 2015-01-14 Completed [facility] (Preservative Free) 00:00:00 of Me dicine Pneumococcal 2015-01-14 Completed [facility] 13-valent Conjugate 00:00:00 of Me dicine Vaccine Influenza 2014-02-09 Completed [facility] (Preservative Free) 00:00:00 of Me dicine Influenza 2014-02-09 Completed [facility] (Preservative Free) 00:00:00 of Me dicine Influenza 2014-02-09 Completed [facility] (Preservative Free) 00:00:00 of Me dicine Influenza 2013-01-20 Completed [facility] (Preservative Free) 00:00:00 of Me dicine Influenza 2013-01-20 Completed [facility] (Preservative Free) 00:00:00 of Me dicine Influenza 2013-01-20 Completed [facility] (Preservative Free) 00:00:00 of Me dicine Influenza 2010-12-16 Completed [facility] (Preservative Free) 00:00:00 of Me dicine Influenza 2010-12-16 Completed [facility] (Preservative Free) 00:00:00 of Me dicine Influenza 2010-12-16 Completed [facility] (Preservative Free) 00:00:00 of Me dicine Influenza 2010-02-28 Completed [facility] (Preservative Free) 00:00:00 of Me dicine Influenza 2010-02-28 Completed [facility] (Preservative Free) 00:00:00 of Me dicine Influenza 2010-02-28 Completed [facility] (Preservative Free) 00:00:00 of Me dicine Vital Signs Vital Name Observation Time Observation Value Comments Source WEIGHT 2020-08-10 17:12:00 80.1 kg WEIGHT 2020-08-10 14:11:00 82.5 kg HEIGHT 2020-08-06 23:13:00 154.9 cm WEIGHT 2020-08-06 23:13:00 79.379 kg Systolic blood 2021-08-02 15:46:00 89 mm[Hg[facility] Diastolic blood 2021-08-02 15:46:00 58 mm[Hg] [facility] Heart rate 2021-08-02 15:46:00 78 [facility] temperature 2021-08-02 15:46:00 [facility].11 [facility] height 2021-08-02 15:46:00 [facility]9 [facility] weight 2021-08-02 15:46:00 [facility]204 [facility] BMI 2021-08-02 15:46:00 31.74 [facility] WEIGHT 2020-08-10 17:12:00 80.1 kg WEIGHT 2020-08-10 14:11:00 82.5 kg HEIGHT 2020-08-06 23:13:00 154.9 cm WEIGHT 2020-08-06 23:13:00 79.379 kg Body height 2020-01-22 15:42:00 154.9 cm [facility] Body weight 2020-01-22 15:42:00 78.926 kg [facility] BMI 2020-01-22 15:42:00 32.88 kg/m2 [facility] Body height 2020-01-22 15:42:00 154.9 cm [facility] Body weight 2020-01-22 15:42:00 78.926 kg [facility] BMI 2020-01-22 15:42:00 32.88 kg/m2 [facility] Body height 2019-12-25 15:30:00 154.9 cm [facility] Body weight 2019-12-25 15:30:00 78.926 kg [facility] BMI 2019-12-25 15:30:00 32.88 kg/m2 [facility] Body height 2019-12-25 15:30:00 154.9 cm [facility] Body weight 2019-12-25 15:30:00 78.926 kg [facility] 2019-12-25 15:30:00 32.88 kg/m2 [facility] Body height 2019-11-27 14:00:00 154.9 cm [facility] Body weight 2019-11-27 14:00:00 78.926 kg [facility] BMI 2019-11-27 14:00:00 32.88 kg/m2 [facility] Body height 2019-11-27 14:00:00 154.9 cm [facility] Body weight 2019-11-27 14:00:00 78.926 kg [facility] BMI 2019-11-27 14:00:00 32.88 kg/m2 [facility] Body height 2019-11-13 21:22:00 154.9 cm [facility] Body weight 2019-11-13 21:22:00 78.926 kg [facility] BMI 2019-11-13 21:22:00 32.88 kg/m2 [facility] Body height 2019-11-13 21:22:00 154.9 cm [facility] Body weight 2019-11-13 21:22:00 78.926 kg [facility] BMI 2019-11-13 21:22:00 32.88 kg/m2 [facility] HEIGHT 2019-11-04 00:00:00 156 cm WEIGHT 2019-11-04 00:00:00 85.004 kg Procedures Procedure Date / Time Performing Clinician Source Performed AUTHORIZATION FOR 2020-01-30 06:01:00 [facility]igned[facility] Branch MEDICAL 2019-05-23 06:01:00 Doctor Unassigned, No Univer [facility] RELEASE/CLEARANCE FORMS [facility] Branch AUTHORIZATION FOR 2019-05-12 06:01:00 Doctor Unassigned, No [facility] Medical Branch Plan of Care Planned Activity Planned Date Details Comments Source Future Scheduled ORT - XR SHOULDER Ordered: 11/13/2019 [facility] Test BILAT 4V (CHARGE of Medicine ONLY) [code = 80518] Future Scheduled ORT - XR SHOULDER Ordered: 12/25/2019 [facility] Test BILAT 4V (CHARGE of Medicine ONLY) [code = 45985] Future Scheduled COLON CANCER [facility] Test SCREENING: of Medicine COLONOSCOPY [code = COLON CANCER SCREENING: COLONOSCOPY] Future Scheduled MAMMOGRAM ANNUAL [facility] Test [code = MAMMOGRAM of Medicin e ANNUAL] Future Scheduled TETANUS SHOT [facility] Test (ADULT) [code = of Medicine TETANUS SHOT (ADULT)] Future Scheduled Diabetic foot [facility] Col [facility]ge Test examination of Medicine (regime/therapy) [code = 923960102] Future Scheduled ANNUAL DIABETIC [facility] C [facility]lege Test RETINOPATHY of Medicine SCREENING [code = ANNUAL DIABETIC RETINOPATHY SCREENING] Future Scheduled BMI FOLLOW UP PLAN [facility] Test [code = BMI FOLLOW of Medici ne UP PLAN] Future Scheduled HEPATITIS C [facility] Test SCREENING [code = of Medicin e HEPATITIS C SCREENING] Future Scheduled HIV SCREENING [code [employer] Test = HIV SCREENING] of Medicine Future Scheduled COLON CANCER [facility] Test SCREENING: of Medicine COLONOSCOPY [code = COLON CANCER SCREENING: COLONOSCOPY] Future Scheduled CERVICAL CANCER [facility] Test SCREENING 3 YEAR of Medicine FOLLOW UP [code = CERVICAL CANCER SCREENING 3 YEAR FOLLOW UP] Future Scheduled MEDICARE AWV [facility] Test (Initial) [code = of Medicin e MEDICARE AWV (Initial)] Future Scheduled ZOSTER VACCINE (1 [facility] College Test of 2) [code = of Medicine ZOSTER VACCINE (1 of 2)] Future Scheduled FLU VACCINE > 6 [facility] Test MONTHS [code = FLU of Medici ne VACCINE > 6 MONTHS] Future Scheduled MAMMOGRAM ANNUAL [facility] College Test [code = MAMMOGRAM of Medicin e ANNUAL] Future Scheduled TETANUS SHOT [facility] [employer] Test (ADULT) [code = of Medicine TETANUS SHOT (ADULT)] Future Scheduled BMI FOLLOW UP PLAN [employer] Test [code = BMI FOLLOW of Medici ne UP PLAN] Future Scheduled ORT - XR SHOULDER Ordered: 01/22/2020 [facility] Test BILAT 4V (CHARGE of Medicine ONLY) [code = 63726] Future Scheduled ORT - XR ELBOW LEFT Ordered: 01/22/20 [facility] Test 3V (CHARGE ONLY) of Medicine [code = 22590] Future Scheduled COLON CANCER [facility] [employer] Test SCREENING: of Medicine COLONOSCOPY [code = COLON CANCER SCREENING: COLONOSCOPY] Future Scheduled MAMMOGRAM ANNUAL [facility] College Test [code = MAMMOGRAM of Medicin e ANNUAL] Future Scheduled TETANUS SHOT [facility] Test (ADULT) [code = of Medicine TETANUS SHOT (ADULT)] Future Scheduled Diabetic foot [facility] Test examination of Medicine (regime/therapy) [code = 435568779] Future Scheduled ANNUAL DIABETIC [facility] Test RETINOPATHY of Medicine SCREENING [code = ANNUAL DIABETIC RETINOPATHY SCREENING] Future Scheduled BMI FOLLOW UP PLAN [employer] Test [code = BMI FOLLOW of Medici ne UP PLAN] Future Scheduled HEPATITIS C [facility] [employer] Test SCREENING [code = of Medicin e HEPATITIS C SCREENING] Future Scheduled HEPATITIS C [facility] [employer] Test SCREENING [code = of Medicin e HEPATITIS C SCREENING] Future Scheduled HIV SCREENING [code [employer] Test = HIV SCREENING] of Medicine Future Scheduled CERVICAL CANCER [facility] Test SCREENING 3 YEAR of Medicine FOLLOW UP [code = CERVICAL CANCER SCREENING 3 YEAR FOLLOW UP] Future Scheduled MEDICARE AWV [facility] Test (Initial) [code = of Medicin e MEDICARE AWV (Initial)] Future Scheduled ZOSTER VACCINE (1 [facility] Test of 2) [code = of Medicine ZOSTER VACCINE (1 of 2)] Future Scheduled FLU VACCINE > 6 Postponed from [facility] Test MONTHS [code = FLU 10/25/2019 of Medici ne VACCINE > 6 MONTHS] (Postpone Reason: Patient declined today) Future Scheduled HIV SCREENING [code [facility] [place] Test = HIV SCREENING] of Medicine Future Scheduled CERVICAL CANCER [facility]lege Test SCREENING 3 YEAR of Medicine FOLLOW UP [code = CERVICAL CANCER SCREENING 3 YEAR FOLLOW UP] Future Scheduled MEDICARE AWV [facility] Test (Initial) [code = of Medicin e MEDICARE AWV (Initial)] Future Scheduled ZOSTER VACCINE (1 [facility] Test of 2) [code = of Medicine ZOSTER VACCINE (1 of 2)] Future Scheduled FLU VACCINE > 6 [facility]lege Test MONTHS [code = FLU of Medici ne VACCINE > 6 MONTHS] Future Scheduled ORT - XR SHOULDER Ordered: 11/27/2019 [facility] Test BILAT 4V (CHARGE of Medicine ONLY) [code = 22477] Future Scheduled COLON CANCER [facility] Test SCREENING: of Medicine COLONOSCOPY [code = COLON CANCER SCREENING: COLONOSCOPY] Future Scheduled MAMMOGRAM ANNUAL [facility] Test [code = MAMMOGRAM of Medicin e ANNUAL] Future Scheduled TETANUS SHOT [facility] Test (ADULT) [code = of Medicine TETANUS SHOT (ADULT)] Future Scheduled Diabetic foot [facility] Test examination of Medicine (regime/therapy) [code = [id number]] Future Scheduled ANNUAL DIABETIC [facility] Test RETINOPATHY of Medicine SCREENING [code = ANNUAL DIABETIC RETINOPATHY SCREENING] Future Scheduled BMI FOLLOW UP PLAN [facility] [place] Test [code = BMI FOLLOW of Medici ne UP PLAN] Future Scheduled HEPATITIS C [facility] Test SCREENING [code = of Medicin e HEPATITIS C SCREENING] Future Scheduled HIV SCREENING [code [employer] [place] Test = HIV SCREENING] of Medicine Future Scheduled CERVICAL CANCER [facility] C [facility]lege Test SCREENING 3 YEAR of Medicine FOLLOW UP [code = CERVICAL CANCER SCREENING 3 YEAR FOLLOW UP] Future Scheduled MEDICARE AWV [facility] Test (Initial) [code = of Medicin e MEDICARE AWV (Initial)] Future Scheduled ZOSTER VACCINE (1 [facility] Test of 2) [code = of Medicine ZOSTER VACCINE (1 of 2)] Future Scheduled FLU VACCINE > 6 [facility] C [facility]lege Test MONTHS [code = FLU of Medici ne VACCINE > [address] MONTHS] Future Scheduled CT SHOULDER RIGHT 1 Occurrences [facility] Test WO CONTRAST [code = starting 11/13/2019 o f Medicine 66829] until 06/12/2020 Encounters Start End Encounter Admission Attending Care Care Encounter Source Date/Time Date/Time Type Type Clinicians Facility Department ID 2021-04-20 Outpatient Beckham, STLMLC STLMLC [id number] Common 12:32:19 [facility] [address] [facility] 2021-04-20 Outpatient Beckham, STLMLC STLMLC [id number] Common 12:22:07 [facility] [address] [facility] 2021-04-20 Outpatient Beckham, STLMLC STLMLC [id number] Common 12:18:27 Jose 21225 [facility] 2021-04-20 Outpatient Beckham, STLMLC STLMLC [id number] Common 12:05:36 Jose 17391 [facility] 2021-04-20 Outpatient Beckham, STLMLC STLMLC [id number] Common 11:56:16 Jose 25605 [facility] 2021-04-20 Outpatient Beckham, STLMLC STLMLC [id number] Common 11:53:33 Jose 56967 [facility] 2021-04-20 Outpatient Beckham, STLMLC STLMLC [id number] Common 11:48:09 Jose 17583 [facility] 2021-04-20 Outpatient Beckham, STLMLC STLMLC [id number] Common 11:46:26 Jose 73084 [facility] 2021-04-20 Outpatient Beckham, STLMLC STLMLC [id number] Common 11:42:27 Jose 07359 [facility] 2021-04-20 Outpatient Beckham, STLMLC STLMLC [id number] Common 11:40:16 Jose 58967 [facility] 2021-04-20 Outpatient Beckham, STLMLC STLMLC [id number] Common 11:38:56 Jose 23[address] [facility] 2021-04-20 Outpatient Beckham, STLMLC STLMLC [id number] Common 11:17:01 Jose 9[address]83 [facility] 2021-04-20 Outpatient Beckham, STLMLC STLMLC [id number] Common 11:16:49 Jose 64134 [facility] 2021-04-20 Outpatient Beckham, STLMLC STLMLC [id number] Common 11:14:02 Jose 39[address] [facility] 2021-01-01 Inpatient UR CHAR [facility] [id number] [facility] 20:20:01 Med 2021-08-02 2021-08-02 Office ANNIE Magallanes [id number] [place] 10:00:00 12:05:15 Visit Masongisel JASON NEELY [id number] [facility] [id number] 2021-06-30 2021-06-30 ambulatory STLMLC STLC [id number] Common 00:00:00 00:00:00 [facility] 2020-02-25 2020-02-25 Outpatient [facility], [facility] [id number] [address] [place] 00:00:00 00:00:00 SAJI 977 Method i 2020-02-25 2020-02-25 Outpatient PALLADI, [facility] [id number] [place] 00:00:00 00:00:00 SAJI 979 Method i 2020-01-30 2020-01-30 Orders Doctor TIANNA Shipley.[id number] [facility] 00:00:00 00:00:00 Only Unassigned, TIMOTHY [id number] ity of [place] [facility] 4.2.7.2.686 Red as [id number] [address] 2020-01-30 2020-01-30 Orders Doctor TIANNA [id number] 00:00:00 00:00:00 Only Unassigned, TIMOTHY 350.1.13.10 [place] [facility] [id number] [id number] 2020-01-29 2020-01-29 Telephone Yoana [facility] [id number] Univers 00:00:00 00:00:00 [place] [id number] ity [place] 4[place]7.2.686 [place] [id number] [address] 2020-01-29 2020-01-29 [facility] [id number] 00:00:00 00:00:00 [place] 350.1.13.10 [place] 4.2.7.2.686 Professio [id number] [address] 2020-01-22 2020-01-22 Office BRISEIDA Osullivan [id number] [facility] 10:05:54 11:52:05 Visit Daiana Valerio AMBULATOR [id number] College Y 0.2.7.2.686 of [id number] Medi leticia 600 e 2020-01-22 2020-01-22 Office BRISEIDA Osullivan [id number] 10:05:54 11:52:05 Visit Daiana Valerio AMBULATOR [id number] Y 0.2.7.2.686 [id number] 600 2020-01-02 2020-01-02 Outpatient STLMLC STLMLC [id number] Common 00:00:00 00:00:00 [facility] 2019-12-31 2019-12-31 Outpatient STLMLC STLMLC [id number] Common 00:00:00 00:00:00 [facility] 2019-12-25 2019-12-25 Office BRISEIDA Osullivan [id number] [facility] 09:47:44 11:32:45 Visit Daiana Valerio AMBULATOR [id number] College Y 0.2.7.2.686 of [id number] Medi leticia 600 e 2019-12-25 2019-12-25 Office BRISEIDA Osullivan [id number] [facility] 09:47:44 11:32:45 Visit Daiana Valerio AMBULATOR [id number] Y 0.2.7.2.686 [id number] 600 2019-11-27 2019-11-27 Office BRISEIDA Osullivan [id number] [facility] 08:35:10 09:57:10 Visit Daiana Valerio AMBULATOR [id number] Y 0.2.7.2.686 [id number] 600 2019-11-27 2019-11-27 Office BRISEIDA Osullivan 1.2.840.[id number] [place] [address] 08:35:10 09:57:10 Visit Daiana Valerio AMBULATOR 350.1.13.21 College Y 0.2.7.2.686 of [id number] [facility] 600 e 2019-11-24 2019-11-24 Outpatient Liya [place] [id number] Common 09:17:00 09:17:00 t [facility] 2019-11-13 2019-11-13 Office BRISEIDA Osullivan 1.2.840.114 [id number] 15:52:21 16:41:09 Visit Daiana Valerio AMBULATOR [id number] Y 0.2.7.2.686 [id number] 600 2019-11-13 2019-11-13 Office BRISEIDA Osullivan 1.2.840.114 [id number] [facility] 15:52:21 16:41:09 Visit Daiana Valerio AMBULATOR 350.1.13.21 College Y 0.2.7.2.686 of [id number] [facility] 600 e 2019-11-12 2019-11-12 Outpatient Liya [place] [id number] Common 09:30:00 09:30:00 [facility] 2019-11-04 2019-11-[address] [facility] [id number] [facility] 00:00:00 00:00:00 2019-11-04 2019-11-04 Outpatient [facility] [id number] [facility] 00:00:00 00:00:00 2019-10-07 2019-10-07 Outpatient [facility] [id number] [facility] 00:00:00 00:00:00 2019-10-02 2019-10-02 Outpatient [id number] Common 16:22:00 16:22:[address] [facility] 2019-10-02 2019-10-02 Outpatient [facility] 30 [id number] Common 10:15:00 10:15:[address] [facility] 2019-10-02 2019-10-02 [facility] 30 [id number] Common 10:00:00 10:00:[address] [facility] 2019-09-02 2019-09-02 Outpatient EL [facility] [id number] [facility] 00:00:00 00:00:00 2019-09-02 2019-09-02 Outpatient [facility] [id number] 2-2 [facility] 00:00:00 00:00:00 [id number] 2019-07-01 2019-07-01 Out[facility] 29 [id number] Common 11:45:00 11:45:[address] [facility] 2019-05-23 2019-05-23 Orders Doctor WYNN [id number] [place] [address] 00:00:00 00:00:00 Only Unassigned, TIMOTHY 350.1.13.10 ity of [place] [facility] 4.2.7.2.686 Red as [phone] [facility] [address] 2019-05-22 2019-05-22 Telephone MARGUERITE Lees [id number] Univers 00:00:00 00:00:00 [place] 350.1.13.10 [place] 4[place]7.2.[place] [phone] Ca dical [facility] [address] [facility] 2019-05-12 2019-05-12 Orders Doctor TIANNA [id number] 00:00:00 00:00:00 Only Unassigned, TIMOTHY 350.1.13.10 ity of [place] [facility] 4.2.7.2.686 Red as [phone] [place] [address] [place] 2019-04-10 2019-04-10 Outpatient [facility] 29 [id number] Common 11:54:00 11:54:[address] [facility] 2019-03-31 2019-03-31 Outpatient [facility] 28 [id number] Common 11:20:00 11:20:[address] [facility] 2019-03-27 2019-03-27 Out[facility] 28 [id number] Common 10:30:00 10:30:[address] [facility] 2019-03-12 2019-03-12 [facility] 27 [id number] Common 09:45:00 09:45:[address] [facility] Results Test Description Test Time Test Comments Results Result Comments Source POCT-GLUCOSE METER 2020-08-13 11:15:00 Test Item Value Reference Range Interpretation Comme nts POC-GLUCOSE METER ([place]) 99 mg/dL 70-110 : [facility] [address] (test code = 1538) [facility] [address]: Fourdrinier Operator/Techni daniel ID = [id number] for Raeann Roberson POCT-GLUCOSE [id number] 11:15:00 Test Item Value Reference Range Interpretation Comments POC-GLUCOSE METER 79 mg/dL 70-110 : Notified RN/MD: TESTED ([facility]) (test code = AT SLS L [address] 1538) [facility] [address]: Fourdrinier Operator/Techni daniel ID = [id number] for Smita Campuzano POCT-GLUCOSE [id number] 11:15:00 Test Item Value Reference Range Interpretation Comments POC-GLUCOSE METER 106 mg/dL 70-110 : [facility] ([facility]) (test code [facility] [address], = 1538) [place] [id number]: Fourdrinier Operator/Techni daniel ID = [id number] for Valentina Piña POCT-GLUCOSE [id number] 11:15:00 Test Item Value Reference Range Interpretation Comments POC-GLUCOSE METER 82 mg/dL 70-110 : TESTED A T [facility] 1317 (BEAKER) (test code = [address] [facility]) [place] [address]278[address]: Fourdrinier Operator/Techni daniel ID = [id number] for Leatha alonzo, Raeann POCT-GLUCOSE [id number] 11:15:00 Test Item Value Reference Range Interpretation Comments POC-GLUCOSE METER 88 mg/dL 70-110 : TESTED A T [facility] 1317 (BEAKER) (test code = [facility] [address] [facility]) [place] [address]: Fourdrinier Operator/Techni daniel ID = [id number] for Leatha alonzo, Raeann POCT-GLUCOSE [id number] 11:15:00 Test Item Value Reference Range Interpretation Comments POC-GLUCOSE METER 83 mg/dL 70-110 : Notified RN/MD: TESTED (BEAKER) (test code = AT SLS L [address] 1538) [place] [address]: Fourdrinier Operator/Techni daniel ID = [id number] for Maria Teresa Charlton POCT-GLUCOSE [id number] 11:15:00 Test Item Value Reference Range Interpretation Comments POC-GLUCOSE METER 110 mg/dL 70-110 : TESTED A T [facility] 1317 (BEAKER) (test code [address] [facility], = 1538) [place] [address]: Fourdrinier Operator/Techni daniel ID = [id number] for Maria Teresa Charlton POCT-GLUCOSE [id number] 11:14:00 Test Item Value Reference Range Interpretation Comments POC-GLUCOSE METER 96 mg/dL 70-110 : TESTED A T [facility] 1317 (BEAKER) (test code = [address]) [place] [address]: Fourdrinier Operator/Techni daniel ID = [id number] for Ali, Yaw POCT-GLUCOSE [id number] 11:14:00 Test Item Value Reference Range Interpretation Comments POC-GLUCOSE METER 97 mg/dL 70-110 : TESTED A T [facility] 1317 (BEAKER) (test code = [address], 15[address]) [place] [address]: Fourdrinier Operator/Techni daniel ID = [id number] for Ali, Yaw POCT-GLUCOSE [id number] 11:14:00 Test Item Value Reference Range Interpretation Comments POC-GLUCOSE METER 99 mg/dL 70-110 : TESTED A T [facility] 1317 (BEAKER) (test code = [address], 15[address]) [place] [address]: Fourdrinier Operator/Techni daniel ID = [id number] for Roc Petea POCT-GLUCOSE [id number] 11:14:00 Test Item Value Reference Range Interpretation Comments POC-GLUCOSE METER 91 mg/dL 70-110 : TESTED A T [facility] 1317 (BEAKER) (test code = [address], 15[address]) [place] [address]: Fourdrinier Operator/Techni daniel ID = [id number] for Nwad iufu, Kim POCT-GLUCOSE [id number] 11:14:00 Test Item Value Reference Range Interpretation Comments POC-GLUCOSE METER 75 mg/dL 70-110 : TESTED A T [facility] 1317 (BEAKER) (test code = [address], 1538) [place] [address]: Fourdrinier Operator/Techni daniel ID = [id number] for Jose ware Estelle SARS-COV2/RT-PCR ([facility])2020-08-10 16:15:00 Test Item Value Reference Range Interpretation Comments SARS-COV2/RT-PCR Negative Not Detected, Performanc e of the Xpert (test code = Negative, See Xpress [id number]) external report SARS-CoV-2/F poly/RSV test for linked [...] sooner.Fact She et for Healthcare Prov iders: https://www.Correx.i-drive/ Documents/Xpert %20Xpress %35JKRO-SrH-1-F poly-RSV/30 24508%20Rev.%2 0B%20HCP% 20Fact%20Sheet. pdfFact Sheet for Healt hcare Patients: https://www.Correx.i-drive/ Documents/Xpert %20Xpress %70IREY-KyU-7-F poly-RSV/30 2-4507%20Rev.%2 0B%20Pati ent%20Fact%20Sh eet.pdf SARS-COV-2 SLSL Performed at:[facility] PERFORMING LAB Bentley[address]ynal[address] gonzalez[address]17 (test code = Aron Recinos [id number]) [place] [address] ph: [phone] RAD, CHEST, 1 VIEW, NON [id number] 15:49:00Reason for exam:->New HemodialysisShould this be performed at the bedside?->Yes [facility] : 1965 Sex: FFINAL REPORT CHEST AP PORTABLE SEMIERECT COMPARISON STUDY: 10/30/2018 History provided: Dialysis Radiographically normal-appearing heart and lungs. Tunneled dialysis catheter from right jugular approach with catheter tip at the cavoatrial junction. Signed: Junito Mayberry MDReport Verified Date/Time: 08/10/2020 15:49:39 Reading Location: [facility] Radiology Reading Room HEPATITIS B CORE ANTIBODY, [id number] 11:01:00 Test Item Value Reference Range Interpretation Comments HEPATITIS B CORE TOTAL ANTIBODY Nonreactive Nonreactive (BEAKER) (test code = 497) Fourdrinier Operator ID - BANDAR MCOMPREHENSIVE METABOLIC [id number] 05:59:00 Test Item Value Reference Range Interpretation [...] S NOT APPLICABLE FOR DIALYSIS PATIEN TS. Fourdrinier Operator ID - LITOOperator ID - LITOOperator ID [...] (test code = 2801) HEPATITIS B SURFACE [id number] 17:24:00 Test Item Value Reference Range Interpretation Comments HEPATITIS B SURFACE ANTIGEN (2) Nonreactive Nonreactive (CARLY) (test code = 2585) Fourdrinier Operator ID - MAYELIN, TUNNELED CATHETER [id number] 10:44:00Reason for Central Line/PICC?->Need for hemodialysis accessReason for exam:->Hemodialysis [facility] 1965 Sex: FFINAL REPORT [...] the patient's medical record by the nurse. Core Cleaner: Rigoberto Beckham M.D. Material Control Associate: None. Approach: Right internal jugular vein Estimated [...] needle into the right atrium. A 4 Bhutanese micropuncture sheath was placed and a 0.035 wire was advanced into the IVC. A subcutaneous tunnel was created in the right anterior chest wall by blunt dissection. A 19 cm tip to cuff 15.5 Bhutanese Duraflow 2 catheter was brought through the [...] MDReport Verified Date/Time: 08/09/2020 10:44:42 Reading Location: [facility] Radiology Reading Room BASIC METABOLIC [id number] 04:46:00 Test Item Value Reference Range Interpretation [...] S NOT APPLICABLE FOR DIALYSIS PATIEN TS. Fourdrinier Operator ID - [id number] ID - [id number] ID - OJOY66Jxcdljhx ID - [id number] ID - YSUN03Xofooadc ID - LGFD43Rdgwbhoi ID - XRQK58Dfnlkwvz ID - LQLO91Gresclkp ID - DYRM12Izuafyfw ID - KYYE52Rxoxxwgj ID - RFJX18Vdemxjck ID - TGBH68Hnoujxki ID - [id number] W/PLT COUNT & AUTO [id number] 04:27:00 Test Item Value Reference Range Interpretation [...] PERCENT (BEAKER) (test code = 2801) POCT-GLUCOSE [id number] 06:14:00 Test Item Value Reference Range Interpretation Comments POC-GLUCOSE METER 76 mg/dL 70-110 : TESTED A T [facility] 1317 (BEAKER) (test code = [facility] 1538) [place] [address]: Fourdrinier Operator/Techni daniel ID = [id number] for Tekl emaryama, Tashia HEMOGLOBIN [id number] 05:40:00 Test Item Value Reference Range Interpretation Comments HEMOGLOBIN A1C (BEAKER) (test code = 4.4 % 4.3-6.1 368) Fourdrinier Operator ID - [id number] 20:58:00 Test Item Value Reference Range Interpretation Comments POC-GLUCOSE METER 118 mg/dL 70-110 H : TESTED A T [facility] 1317 (BEAKER) (test code [address] [facility], = 1538) [place] [address]: Fourdrinier Operator/Techni daniel ID = [id number] for Tekl emaryama, Tashia VANCOMYCIN LEVEL, [id number] 08:10:00 Test Item Value Reference Range Interpretation Comments VANCOMYCIN TROUGH (BEAKER) (test 17.0 ug/mL 10.0-20.0 code = 522) Fourdrinier Operator ID - [id number] 05:26:00 Test Item Value Reference Range Interpretation [...] Borderline 130-159 High 160-189 Very High >=190 Fourdrinier Operator ID - [id number] ID - wlvr67Avzvmhre ID - [id number] METABOLIC [id number] 05:26:00 Test Item Value Reference Range Interpretation [...] S NOT APPLICABLE FOR DIALYSIS PATIEN TS. Fourdrinier Operator ID - [id number] ID - sygx57Odnjrrsd ID - tzef89Worusklh ID - ogfk34Wyictpfw ID - kxkk56Cavdyejg ID - wfoo99Ozszzqol ID - lnsf53Vcsapebi ID - xezi82Hhxparoh ID - dfvo67Izhsghrt ID - [id number] 05:18:00 Test Item Value Reference Range Interpretation Comments MAGNESIUM (BEAKER) (test code = 2.0 mg/dL 1.5-3.0 627) Fourdrinier Operator ID - [id number] ID - cqlp71Ayrfuolg ID - vyke42Nmevruld ID - [id number] 05:16:00 Test Item Value Reference Range Interpretation Comments PHOSPHORUS (BEAKER) (test code = 4.8 mg/dL 2.5-4.5 H 604) Fourdrinier Operator ID - [id number] W/PLT COUNT & AUTO [id number] 05:10:00 Test Item Value Reference Range Interpretation [...] PERCENT (BEAKER) (test code = 2801) PROTHROMBIN [id number] 04:59:00 Test Item Value Reference Range Interpretation Comments PROTIME (BEAKER) 13.2 seconds 9.3-12.0 H Final Infor mation (test code = 759) (Auto Outp ut) INR (BEAKER) (test 1.20 See_Comment Final Inf ormation code = 370) (Auto Output) [Automated mess age] The system Moodswing generated this result transmitted ref erence range: <=5.90. The reference range was not used to int erpret this result as normal/abnormal . RECOMMENDED COUMADIN/WARFARIN INR THERAPY RANGESSTANDARD DOSE: 2.0 - 3.0 Includes: PROPHYLAXIS forvenous thrombosis, systemic embolization; TREATMENT for venous thrombosis and/or pulmonary embolus.HIGH RISK: Target INR is 2.5-3.5 for patients with mechanical heart valves.HEMOGLOBIN [id number] 04:50:00 Test Item Value Reference Range Interpretation Comments HEMOGLOBIN A1C (BEAKER) (test code = 4.5 % 4.3-6.1 368) Fourdrinier Operator ID - [id number] FLUID CULTURE + GRAM [id number] 12:18:00 Test Item Value Reference Range Interpretation Comments CULTURE (BEAKER) (test No growth code = 1095) GRAM STAIN RESULT <1+ White blood cells (BEAKER) (test code = seen 1123) GRAM STAIN RESULT No organisms seen (BEAKER) (test code = 47149) BLOOD [id number] 08:01:00 Test Item Value Reference Range Interpretation Comments CULTURE (BEAKER) (test No growth in 5 days code = 1095) BLOOD [id number] 08:01:00 Test Item Value Reference Range Interpretation Comments CULTURE ([facility]) (test No growth in 5 days code = 1095) POCT-GLUCOSE [id number] 14:58:00 Test Item Value Reference Range Interpretation Comments POC-GLUCOSE METER 101 mg/dL 70-110 TESTED AT [place] [address] ([facility]) (test code = ANIL [place] 1538) [address] HEMOGLOBIN AND [id number] 12:19:00 Test Item Value Reference Range Interpretation Comments HEMOGLOBIN ([facility]) (test code = 7.5 GM/DL 11.2-15.7 L 410) HEMATOCRIT ([facility]) (test code = 23.1 % 34.1-44.9 L 411) POCT-GLUCOSE [id number] 08:37:00 Test Item Value Reference Range Interpretation Comments POC-GLUCOSE METER 168 mg/dL 70-110 H TESTED AT [place] [address] ([facility]) (test code = [facility] [place] 1538) [address] LACTIC ACID, [id number] 07:04:00 Test Item Value Reference Range Interpretation Comments LACTATE BLOOD VENOUS 1.9 mmol/L 0.5-2.2 Specime n slightly (2) ([facility]) (test hemolyzed code = 2872) POCT-GLUCOSE [id number] 21:25:00 Test Item Value Reference Range Interpretation Comments POC-GLUCOSE METER 102 mg/dL 70-110 TESTED AT [place] [address] ([facility]) (test code = [facility] Kevin [place] 1538) [address] POCT-GLUCOSE [id number] 18:50:00 Test Item Value Reference Range Interpretation Comments POC-GLUCOSE METER 91 mg/dL 70-110 TESTED AT [place] [address] ([facility]) (test code = [facility] [place] [address] 1538) POCT-GLUCOSE [id number] 13:23:00 Test Item Value Reference Range Interpretation Comments POC-GLUCOSE METER 114 mg/dL 70-110 H TESTED AT [place] [address] ([facility]) (test code = [facility] Kevin [place] 1538) [address] POCT-GLUCOSE [id number] 09:11:00 Test Item Value Reference Range Interpretation Comments POC-GLUCOSE METER 131 mg/dL 70-110 H TESTED AT [place] [address] (BEAKER) (test code = [place] 1538) [address] BASIC METABOLIC [id number] 06:45:00 Test Item Value Reference Range Interpretation [...] S NOT APPLICABLE FOR DIALYSIS PATIEN TS. [id number] 06:40:00 Test Item Value Reference Range Interpretation Comments PHOSPHORUS (BEAKER) (test code = 6.5 mg/dL 2.3-4.7 H 604) [id number] 06:40:00 Test Item Value Reference Range Interpretation Comments MAGNESIUM (BEAKER) (test code = 1.9 mg/dL 1.6-2.6 627) LACTIC ACID, [id number] 06:12:00 Test Item Value Reference Range Interpretation Comments LACTATE BLOOD VENOUS (2) (BEAKER) 2.3 mmol/L 0.5-2.2 H (test code = 2872) CBC W/PLT COUNT & AUTO [id number] 06:05:00 Test Item Value Reference Range Interpretation [...] PERCENT (BEAKER) (test code = 2801) POCT-GLUCOSE [id number] 21:04:00 Test Item Value Reference Range Interpretation Comments POC-GLUCOSE METER 135 mg/dL 70-110 H TESTED AT [facility] 6720 (BEAKER) (test code = [place] 1538) [address] [id number] 17:08:00 Test Item Value Reference Range Interpretation Comments FERRITIN (BEAKER) (test code = 1367 ng/mL 5-275 H 361) POCT-GLUCOSE [id number] 17:00:00 Test Item Value Reference Range Interpretation Comments POC-GLUCOSE METER 137 mg/dL 70-110 H [facility] [place] [address] [facility] (test code = [facility] 1538) [address] IRON, TIBC, % SAT. (WITHOUT FERRITIN)2018-10-30 16:48:00 Test Item Value Reference Range Interpretation Comments IRON (BEAKER) (test code = 547) 53.0 ug/dL 40.0-160.0 TOTAL IRON BINDING CAPACITY 135 ug/dL 250-450 L (BEAKER) (test code = 769) IRON % SATURATION (2) (BEAKER) 39 % 20-55 (test code = 2590) RETICULOCYTE [id number] 16:47:00 Test Item Value Reference Range Interpretation Comments RETICULOCYTE COUNT PCT (BEAKER) (test 2.1 % 0.5-1.7 H code = 575) LACTIC ACID, [id number] 14:17:00 Test Item Value Reference Range Interpretation Comments LACTATE BLOOD VENOUS (2) (BEAKER) 1.7 mmol/L 0.5-2.2 (test code = 2872) HEMOGLOBIN AND [id number] 14:03:00 Test Item Value Reference Range Interpretation Comments HEMOGLOBIN (BEAKER) (test code = 6.4 GM/DL 11.2-15.7 L 410) HEMATOCRIT (BEAKER) (test code = 20.2 % 34.1-44.9 L 411) POCT-GLUCOSE [id number] 11:11:00 Test Item Value Reference Range Interpretation Comments POC-GLUCOSE METER 143 mg/dL 70-110 H TESTED [facility] [place] [address] [facility] (test code = [facility] Kevin [facility] 1538) [address] [id number] 03:47:00 Test Item Value Reference Range Interpretation Comments PROCALCITONIN (BEAKER) (test code 0.76 ng/mL <0.05 H = 3036) SEPSIS RISK (ng/mL)Low: 0.05-0.50Intermediate: 0.51-2.00High: >=[id number] 02:58:00 Test Item Value Reference Range Interpretation Comments PHOSPHORUS (BEAKER) (test code = 6.8 mg/dL 2.3-4.7 H 604) [id number] 02:58:00 Test Item Value Reference Range Interpretation Comments MAGNESIUM (BEAKER) (test code = 1.9 mg/dL 1.6-2.6 627) LACTIC ACID, [id number] 02:53:00 Test Item Value Reference Range Interpretation Comments LACTATE BLOOD VENOUS 1.6 mmol/L 0.5-2.2 Specime n slightly (2) (BEAKER) (test hemolyzed code = 2872) RAD, CHEST, 1 VIEW, NON [id number] 02:31:00Reason for exam:->altered mental statusShould this be [...] No acute cardiopulmonary abnormality. Signed: Sharmin Pleitez Verified Date/Time: 10/30/2018 02:31:36 OXYGEN SATURATION, [id number] 02:25:00 Test Item Value Reference Range Interpretation Comments O2 SATURATION (MEASURED) (BEAKER) 75.1 % (test code = 1455) If patient has internal jugular ( IJ) or subclavian central line or PICC line. Draw from distal port. Label as central venous oxygen.CBC W/PLT COUNT & AUTO [id number] 00:56:00 Test Item Value Reference Range Interpretation [...] (BEAKER) (test code = 2801) COMPREHENSIVE METABOLIC [id number] 00:46:00 Test Item Value Reference Range Interpretation [...] APPLICABLE FOR DIALYSIS PATIEN TS. LACTIC ACID, [id number] 00:27:00 Test Item Value Reference Range Interpretation Comments LACTATE BLOOD VENOUS (2) (BEAKER) 1.9 mmol/L 0.5-2.2 (test code = 2872) BLOOD GAS, [id number] 00:24:00 Test Item Value Reference Range Interpretation [...] (test code = 1819) 21.0 % POCT-GLUCOSE [id number] 23:54:00 Test Item Value Reference Range Interpretation Comments POC-GLUCOSE METER 249 mg/dL 70-110 H TESTED AT [facility] 6720 (BEAKER) (test code = [place] 1538) [address] BODY FLUID CELL COUNT WITH [id number] 21:57:00 Test Item Value Reference Range Interpretation [...] (test code = 2873) C. DIFFICILE GDH [id number] 10:06:00 Test Item Value Reference Range Interpretation Comments CDT TOXIN (test code Positive Negative A = [id number]) CDT GDH ANTIGEN Positive Negative A Confirms Beti stridium (test code = difficile-assoc iated [id number]) infection.First line therapy - oral Vancomycin. Co ntinue enteric isolati on until 72 hours after treatment is discontinued and symptoms have r esolved. Testing performed by [employer] Rapid Cassette Assay. For GDH, published sensitivity of the assay is 98.7% compared to cytotoxicity testing. For Toxin AB, published sensitivity is 87.8% and specificity 99.4% compared to cytotoxicity testing.Verification of kit performance was done by the [facility] Microbiology Lab prior to clinical use.POCT-GLUCOSE [id number] 09:14:00 Test Item Value Reference Range Interpretation Comments POC-GLUCOSE METER 109 mg/dL 70-110 TESTED AT [facility] 6720 (BEAKER) (test code = AN[place] 1538) [address] [id number] 08:46:00 Test Item Value Reference Range Interpretation Comments PROCALCITONIN (BEAKER) (test code 0.67 ng/mL <0.05 H = 3036) SEPSIS RISK (ng/mL)Low: 0.05-0.50Intermediate: 0.51-2.00High: >=2.01CBC W/PLT COUNT & AUTO [id number] 08:36:00 Test Item Value Reference Range Interpretation [...] PERCENT (BEAKER) (test code = 2801) VITAMIN [id number] 07:12:00 Test Item Value Reference Range Interpretation Comments VITAMIN B12 (BEAKER) (test code = 680 pg/mL 213-816 774) TSH/FREE T4 IF [id number] 07:12:00 Test Item Value Reference Range Interpretation Comments THYROID STIMULATING HORMONE 0.94 uIU/mL 0.35-4.94 (BEAKER) (test code = 772) OSMOLALITY, [id number] 07:06:00 Test Item Value Reference Range Interpretation Comments OSMOLALITY, SERUM (BEAKER) (test 296 mOsm/kg 275-295 H code = 615) BASIC METABOLIC [id number] 06:11:00 Test Item Value Reference Range Interpretation [...] S NOT APPLICABLE FOR DIALYSIS PATIEN TS. [id number] 06:05:00 Test Item Value Reference Range Interpretation Comments PHOSPHORUS (BEAKER) (test code = 7.4 mg/dL 2.3-4.7 H 604) [id number] 06:05:00 Test Item Value Reference Range Interpretation Comments MAGNESIUM (BEAKER) (test code = 2.0 mg/dL 1.6-2.6 627) HEPATIC FUNCTION [id number] 06:05:00 Test Item Value Reference Range Interpretation [...] code = 39 U/L 6-55 347) C-REACTIVE [id number] 06:05:00 Test Item Value Reference Range Interpretation Comments C-REACTIVE PROTEIN (BEAKER) (test 1.72 mg/dL 0.00-0.50 H code = 676) [id number] 05:56:00 Test Item Value Reference Range Interpretation Comments AMMONIA (BEAKER) (test code = 348) 16 mol/L 18-72 L RAD, CHEST, 1 VIEW, NON [id number] 21:14:00Reason for exam:->chest painIs the patient ?->UnknownShould [...] IMPRESSION: No acute cardiopulmonaryabnormality. Signed: Sharmin Pleitez Verified Date/Time: 10/28/2018 21:14:02 URINALYSIS [id number] 20:54:00 Test Item Value Reference Range Interpretation Comments RBC UA (BEAKER) (test code = 519) 1 /HPF WBC UA (BEAKER) (test code = 520) 10 /HPF SQUAMOUS EPITHELIAL (BEAKER) (test 5 /HPF code = 516) HYALINE CASTS (BEAKER) (test code = 2 /LPF 514) URINALYSIS WITH MICROSCOPIC IF [id number] 20:52:00 Test Item Value Reference Range Interpretation [...] SOURCE(BEAKER) (test code = 2795) BASIC METABOLIC [id number] 20:32:00 Test Item Value Reference Range Interpretation [...] GFR I S NOT APPLICABLE FOR DIALYSIS PATICATIA TS. [id number] 20:29:00 Test Item Value Reference Range Interpretation Comments MAGNESIUM (BEAKER) (test code = 2.0 mg/dL 1.6-2.6 627) [id number] 20:29:00 Test Item Value Reference Range Interpretation Comments LIPASE (BEAKER) (test code = 749) 65 U/L 8-78 [id number] 20:10:00 Test Item Value Reference Range Interpretation [...] mechanical heart valves.CBC W/PLT COUNT & AUTO [id number] 20:05:00 Test Item Value Reference Range Interpretation [...] (test code = 2801) CT, BRAIN, WITHOUT [id number] 19:38:00Reason for exam:->ALTERED MENTAL STATUSReason for exam:->GENERALIZED [...] SkyMDReport Verified Date/Time: 10/28/2018 19:38:10 Reading Location: [address] Neuro Reading Room HEMOGLOBIN [id number] 07:56:00 Test Item Value Reference Range Interpretation Comments HEMOGLOBIN A1C (BEAKER) (test code = 6.1 % 4.3-6.1 368) VITAMIN [id number] 06:59:00 Test Item Value Reference Range Interpretation Comments VITAMIN B12 (BEAKER) (test code = 483 pg/mL 213-816 774) TSH/FREE T4 IF [id number] 06:59:00 Test Item Value Reference Range Interpretation Comments THYROID STIMULATING HORMONE 1.74 uIU/mL 0.35-4.94 (BEAKER) (test code = 772) BASIC METABOLIC [id number] 06:04:00 Test Item Value Reference Range Interpretation [...] NOT APPLICABLE FOR DIALYSIS PATIEN TS. LIPID [id number] 05:54:00 Test Item Value Reference Range Interpretation [...] Very High >=190CBC W/PLT COUNT & AUTO [id number] 04:52:00 Test Item Value Reference Range Interpretation [...] (test code = 2801) MR, BRAIN, WITHOUT [id number] 04:11:00FINAL REPORT MRI Brain without contrast Clinical History: TIA/Stroke Technique: MRI of the brain utilizing axial T2, FLAIR, GRE, DWI; sagittal and coronal T1- weighted images. MRAof the head utilizing 3-D yyll-io-cdsvqu technique, with 3-D reconstructions. MRA of the neck utilizing 2-D and 3-D mwbx-rg-bnvbcz technique, with 3-D reconstructions. Comparisons: None Findings:MRI [...] MRA head: No evidence for a major [place] proximal branch vessel occlusion. MRA neck: No evidence of hemodynamically significant stenosis in the cervical carotid or vertebral arteries by NASCET criteria. Signed: Sharmin Pleitez Verified Date/Time: 08/19/2018 04:11:07 Reading Location: [address] Reading Room MR, MRA, BRAIN, WITHOUT [id number] 04:11:00FINAL REPORT MRI Brain without contrast Clinical History: TIA/Stroke Technique: MRI of the brain utilizing axial T2, FLAIR, GRE, DWI; sagittal and coronal T1-weighted images. MRAof the head utilizing 3-D lenj-gh-udiwem technique, with 3-D reconstructions. MRA of the neck utilizing 2- D and 3-D zdsl-bb-lwswmi technique, with 3-D reconstructions. Comparisons: None Findings:MRI [...] MRA head: No evidence for a major [place] proximal branch vessel occlusion. MRA neck: No evidence of hemodynamically significant stenosis in the cervical carotid or vertebral arteries by NASCET criteria. Signed: Sharmin Pleitez MDRepzulma Verified Date/Time: 08/19/2018 04:11:07 Reading Location: [address] Reading Room MR, MRA, NECK, WITHOUT IV [id number] 04:11:00Reason for exam:->Stroke/TIAFINAL REPORT MRI Brain without contrast Clinical History: TIA/Stroke Technique: MRI of the brain utilizing axial T2, FLAIR, GRE, DWI; sagittal and coronal T1-weighted images. MRAof the head utilizing 3-D vzrc-vo-kvleqb technique, with 3-D reconstructions. MRA of the neck utilizing 2-D and 3-D pqbr-bd-nfugtv technique, with 3-D reconstructions. Comparisons: None Findings:MRI [...] MRA head: No evidence for a major [place] proximal branch vessel occlusion. MRA neck: No evidence of hemodynamically significant stenosis in the cervical carotid or vertebral arteries by NASCET criteria. Signed: Sharmin Pleitez Verified Date/Time: 08/19/2018 04:11:07 Reading Location: [facility] C013T Transitional Reading Room POCT-GLUCOSE [id number] 21:55:00 Test Item Value Reference Range Interpretation Comments POC-GLUCOSE METER 115 mg/dL 70-110 H TESTED AT [place] [address] ([facility]) (test code = [facility] [employer] 1538) [address] POCT-GLUCOSE [id number] 18:29:00 Test Item Value Reference Range Interpretation Comments POC-GLUCOSE METER 93 mg/dL 70-110 TESTED AT [place] [id number] ([facility]) (test code = [facility] [employer] [address]) CT, CTA [id number] 10:10:00Reason for Exam:->assess iliac vessels, pre kidney transplantAddendum BeginsREPORT STATUS:A Addendum: I agree with the previously described non vascular findings. Signed: Cristopher New Verified Date/Time: 06/27/2018 10:10:18 Reading Location: [facility] P048 Angio Body Reading RoomAddendum EndsFINAL REPORT CT angiography of the abdominal aorta and pelvic arteries, 25-Jun-18 INDICATION: This is a 53 year oldfemale with end-stage renal disease, presents for pretransplant assessment. This study is performed in an attempt to avoid an invasive procedure. TECHNIQUE: Spiral acquisition before and during intravenous contrast administration using a GE multidetector CT scanner. Images were obtained before [...] except for minimal calcific atherosclerosis identified proximally. [employer] Department dimensions of the left and the right external iliac arteries are 6 and 6 mm, respectively. Similarly, the associated pelvic veins are patent with no venous thrombosis identified. [employer]junct [employer] Department dimensions of the left and the right [...] no arterial stenosis or venous thrombosis identified. Adjunct [employer] Department dimensions of the left and the right external iliacarteries and veins are as described above. 2. Widely patent mesenteric arteries. Patent renal arteries. 3. Other findings as described above. 4. An addendum will be dictated regarding the non-vascular findings by the Airline Counter Agent Radiologist. Signed: Samson Mcgill MDReport Verified Date/Time: 06/25/2018 09:45:12 Reading Location: [place] [address] Cardiology MRI OCCULT BLOOD, [id number] 00:49:00 Test Item Value Reference Range Interpretation Comments FECAL OCCULT BLOOD (BEAKER) (test Negative Negative code = 618) U/S, ABDOMINAL, [id number] 13:53:00Reason for Exam:->pre transplant evaluationFINAL REPORT Abdominal [...] cholecystitis. Signed: Edwar Thayer MDReport Verified Date/Time: 1 05/02/2017 13:53:56 Reading Location: [address] Ultrasound Reading Room Electronically signedby: EDWAR THAYER MD on 03/01/2018 01:53 PMOCCULT BLOOD, [id number] 11:11:00 Test Item Value Reference Range Interpretation Comments FECAL OCCULT BLOOD (BEAKER) (test Negative Negative code = 618) [id number] 10:23:00 Test Item Value Reference Range Interpretation Comments PHOSPHORUS (BEAKER) (test code = 3.9 mg/dL 2.3-4.7 604) PROTHROMBIN [id number] 10:21:00 Test Item Value Reference Range Interpretation Comments PROTIME (BEAKER) (test code = 13.2 seconds 11.7-14.7 759) INR (BEAKER) (test code = 370) 1.0 <=5.9 RECOMMENDED COUMADIN/WARFARIN INR THERAPY RANGESSTANDARD DOSE: 2.0 - 3.0 Includes: PROPHYLAXIS forvenous thrombosis, systemic embolization; TREATMENT for venous thrombosis and/or pulmonary embolus.HIGH RISK: Target INR is 2.5-3.5 for patients with mechanical heart valves.URINE [id number] 10:03:00 Test Item Value Reference Range Interpretation Comments CULTURE (BEAKER) (test 40-49,000 col/mL skin code = 1095) johnny CYTOMEGALOVIRUS ANTIBODY, [id number] 10:10:00 Test Item Value Reference Range Interpretation Comments CYTOMEGALOVIRUS, IGG (BEAKER) Positive Negative, Equivocal A (test code = 3429) CMV IgG Result Interpretation: </= 0.8 Al Negative 0.9-1.0 Al Equivocal >/=1.1 Al PositiveCYTOMEGALOVIRUS ANTIBODY, [id number] 10:10:00 Test Item Value Reference Range Interpretation Comments CYTOMEGALOVIRUS IGM ANTIBODY Positive Negative, Equivocal A (BEAKER) (test code = 3437) CMV IgM Result Interpretation: </= 0.8 Al Negative 0.9-1.0 Al Equivocal >/= 1.1 Al PositiveEBV ANTIBODY, [id number] 10:10:00 Test Item Value Reference Range Interpretation [...] Equivocal >/= 1.1 Al PositiveVARICELLA ZOSTER ANTIBODY, [id number] 10:09:00 Test Item Value Reference Range Interpretation Comments VARICELLA ZOSTER IGG (AL) (BEAKER) > (test code = 3197) VARICELLA ZOSTER RESULT INTERPRETATIONS: <=0.8 Al Nonreactive: Presumed non-immune to VZV 0.9-1.0 Al Equivocal >=1.1 Al Reactive: Presumed immune to [id number] 07:38:00 Test Item Value Reference Range Interpretation Comments RPR SCREEN (BEAKER) (test code = Nonreactive Nonreactive 420) CBC W/PLT COUNT & AUTO [id number] 14:38:00 Test Item Value Reference Range Interpretation [...] (test code = 2801) RAD, CHEST, 2 [id number] 12:48:00Reason for Exam:->pre transplant evaluationFINAL REPORT PA and Lateral views of the chest dated 01/15/2018 Clinical information: pre transplant evaluation Comment: Heart is normal in size. Pulmonary vasculature is unremarkable. Lungs are clear. No pulmonary infiltrate or pleural effusion is present. Impression: No active cardiopulmonary disease. Signed: Daiana Anaya MDReport Verified Date/Time: 01/15/2018 12:48:30 Reading Location: [address] Radiology Reading Room HEMOGLOBIN [id number] 11:27:00 Test Item Value Reference Range Interpretation Comments HEMOGLOBIN A1C (BEAKER) (test code = 5.6 % 4.3-6.1 368) URINALYSIS W/ [id number] 11:23:00 Test Item Value Reference Range Interpretation [...] = 1585) Rare SOURCE(BEAKER) (test code = 0115) COMPREHENSIVE METABOLIC [id number] 10:41:00 Test Item Value Reference Range Interpretation [...] NOT APPLICABLE FOR DIALYSIS PATIEN TS. URIC [id number] 10:04:00 Test Item Value Reference Range Interpretation [...] H code = 635) HEPATITIS B SURFACE [id number] 10:03:00 Test Item Value Reference Range Interpretation Comments HEPATITIS B SURFACE ANTIGEN (2) Nonreactive Nonreactive (BEAKER) (test code = 2585) HEPATITIS B SURFACE [id number] 10:03:00 Test Item Value Reference Range Interpretation Comments HEPATITIS B SURFACE ANTIBODY 69.3 mIU/mL <8.0 H (BEAKER) (test code = 647) HEPATITIS B CORE ANTIBODY, [id number] 10:03:00 Test Item Value Reference Range Interpretation Comments HEPATITIS B CORE IGM ANTIBODY Nonreactive Nonreactive (BEAKER) (test code = 645) HEPATITIS C [id number] 10:03:00 Test Item Value Reference Range Interpretation Comments HEPATITIS C ANTIBODY (BEAKER) Nonreactive Nonreactive (test code = 367) HIV-1 ANTIGEN WITH HIV-1/2 [id number] 10:03:00 Test Item Value Reference Range Interpretation Comments HIV-1 ANTIGEN WITH HIV 1\T\2 Nonreactive Nonreactive ANTIBODY (2) (BEAKER) (test code = 2586) PTH, [id number] 09:45:00 Test Item Value Reference Range Interpretation Comments PARATHYROID HORMONE INTACT 308.0 pg/mL 8.5-72.5 H (BEAKER) (test code = 577) [id number] 09:31:00 Test Item Value Reference Range Interpretation Comments PROTIME (BEAKER) (test code = 14.4 seconds 11.7-14.7 759) INR (BEAKER) (test code = 370) 1.1 <=5.9 PARTIAL THROMBOPLASTIN TIME 29.8 seconds 22.5-36.0 (BEAKER) (test code = 760) RECOMMENDED COUMADIN/WARFARIN INR THERAPY RANGESSTANDARD DOSE: 2.0 - 3.0 Includes: PROPHYLAXIS forvenous thrombosis, systemic embolization; TREATMENT for venous thrombosis and/or pulmonary embolus.HIGH RISK: Target INR is 2.5-3.5 for patients with mechanical heart valves.
--- NOTE | 2021-08-10 19:19 | RAD REPORT ---
EXAM DESCRIPTION: RAD - Chest Single View - 08/10/2021 7:05 pm CLINICAL HISTORY: syncope COMPARISON: Abdomen 1 View (KUB) dated 08/06/2020; Chest Single View dated 08/02/2020; Chest Single Vi ew dated 08/18/2018; Chest Single View dated 04/08/2017; Abdomen Pelvis Wo Contrast dated 06/09/2021 FINDINGS: Lines: None. Lungs: No evidence of edema or pneumonia. Pleural: No significant pleural effusions or pneumothorax. Cardiac: The heart size is within normal limits. Bones: No acute fractures. Other: Colon anterior to the liver in the right upper quadrant. IMPRESSION: No acute cardiopulmonary disease.
[2021-08-10 20:09] LABS: Absolute Lymphocytes (CBC) 1.8 K/uL (0.7-4.9); Hematocrit 28.7 % (36.0-45.0); MPV 10.2 fL (7.6-11.3); RBC Red Blood Cell Count 3.19 M/uL (3.86-4.86)
[2021-08-10] MEDS ORDERED: NA CHLORIDE 0.9% 250 ML ONE (21:18)
[2021-08-10 21:24] LABS: Potassium 2.2 mmol/L (3.5-5.1); Troponin High Sensitivity 66.1 pg/mL (<58.9)
[2021-08-10] MEDS ORDERED: POTASSIUM CL SA 10 MEQ TAB PO ONE (21:49)
--- NOTE | 2021-08-10 22:03 | EDPHYS ---
Physician Documentation [facility] Name: Maki Tabaers Age: 56 yrs Sex: Female : 1965 Arrival Date: 08/10/2021 Time: 18:29 Bed 14 Private MD: ED Physician Meño Serna HPI: 08/10 18:40 This 56 yrs old Black Female presents to ER via Wheelchair with complaints of Low blood ms3 pressure when standing, syncope. 18:41 The patient has experienced syncope, became unresponsive. Onset: The symptoms/episode ms3 began/occurred just prior to arrival. Duration: This was a single episode, that lasted 4 minute(s). Context: the episode(s) was witnessed, occurred ER Parking lot, occurred while the patient was Getting out of car. Just prior to the episode the patient experienced Low BP when standing. Associated injury: The patient did not suffer any apparent associated injury. Associated signs and symptoms: Pertinent positives: lightheadedness, Pertinent negatives: chest pain, headache, shortness of breath. Current symptoms: Currently, the patient is not experiencing any symptoms. Historical: - Allergies: 18:29 crawfish; ap3 18:29 SHELLFISH; ap3 - PMHx: 18:29 Diabetes - NIDDM; Dialysis; peritoneal; Hyperlipidemia; Hypertension; Parkinsons; ap3 - Immunization history:: Client reports receiving the 2nd dose of the Covid vaccine. - Social history:: Smoking status: Patient denies any tobacco usage or history of. ROS: 18:41 Constitutional: Negative for fever, and chills. Neck: Negative for injury, pain, and ms3 swelling, Cardiovascular: Negative for chest pain, and palpitations. Respiratory: Negative for shortness of breath, cough, wheezing, and pleuritic chest pain, Abdomen/GI: Negative for abdominal pain, nausea, vomiting, diarrhea, and constipation, MS/Extremity: Negative for injury and deformity, Skin: Negative for injury, rash, and discoloration, Psych: Negative for depression, anxiety, suicide ideation, homicidal ideation, and hallucinations. Exam: 18:41 Constitutional: This is a well developed, well nourished patient who is awake, alert, ms3 and in no acute distress. Head/Face: Normocephalic, atraumatic. Eyes: Pupils equal round and reactive to light, extra-ocular motions intact. Lids and lashes normal. Conjunctiva and sclera are non-icteric and not injected. Periorbital areas with no swelling, redness, or edema. Neck: Trachea midline, no cervical lymphadenopathy. Supple, full range of motion without nuchal rigidity, or vertebral point tenderness. No Meningismus. Chest/axilla: Normal chest wall appearance and motion. Nontender with no deformity. Cardiovascular: Regular rate and rhythm with a normal S1 and S2. No gallops, murmurs, or rubs. Normal PMI, no JVD. No pulse deficits. Respiratory: Lungs have equal breath sounds bilaterally, clear to auscultation and percussion. No rales, rhonchi or wheezes noted. No increased work of breathing, no retractions or nasal flaring. Abdomen/GI: Soft, non-tender, with normal bowel sounds. No distension or tympany. No guarding or rebound. No evidence of tenderness throughout. Skin: Warm, dry with normal turgor. Normal color with no rashes, no lesions, and no evidence of cellulitis. Psych: Awake, alert, with orientation to person, place and time. Behavior, mood, and affect are within normal limits. Vital Signs: 18:29 BP 124 / 65; Pulse 65; Resp 18; Temp 98.6; Pulse Ox 100% ; Weight 74.84 kg; Height 5 ap3 ft. 1 in. (154.94 cm); 20:56 BP 142 / 60; Pulse 63; Resp 15; Pulse Ox 100% on R/A; sm5 23:00 BP 137 / 52; Pulse 72; Resp 19; Pulse Ox 100% on R/A; sm5 18:29 Body Mass Index 31.18 (74.84 kg, 154.94 cm) ap3 MDM: 18:31 Patient medically screened. ms3 18:41 Differential Diagnosis: cardiac arrhythmia, seizure, Orthostatic hypotension. ms3 19:18 Transition of care: After a detail discussion of the patient's case, care is ms3 transferred to Meño Serna MD. 22:00 Data reviewed: vital signs, nurses notes, lab test result(s), EKG, and as a result, I rn will admit patient. Counseling: I had a detailed discussion with the patient and/or guardian regarding: the historical points, exam findings, and any diagnostic results supporting the discharge/admit diagnosis, lab results, radiology results, the need for further work-up and treatment in the hospital, the need to transfer to another facility, patient request and cannot do peritoneal dialysis at this hospital, patient nor family know how to do it.. Response to treatment: There is no appreciated change of the patient's symptoms at this time, and as a result, I will admit patient. Admission orders: after a detailed discussion of the patient's condition and case, the admit orders are written by me. ED course: Pt still with considerable weakness, unable to sit on her own much less try and stand, family also does not want to take her home 2/2 weakness and lives by herself. Will attempt transfer [facility] because of peritoneal dialysis and patient request.. 22:49 ED course: Accepted for transfer to [facility].. rn 08/10 18:40 Order name: Basic Metabolic Panel; Complete Time: 21:43 ms3 08/10 18:40 Order name: CBC with Diff; Complete Time: 20:26 ms3 08/10 18:40 Order name: Troponin HS; Complete Time: 21:43 ms3 08/10 21:24 Order name: NT PRO-BNP; Complete Time: 21:43 EDMS 08/10 22:03 Order name: SARS-COV-2 RT PCR (Document "Date of Onset" if Symptomatic) rn 08/10 18:40 Order name: XRAY Chest (1 view); Complete Time: 19:51 ms3 08/10 18:40 Order name: EKG; Complete Time: 18:41 ms3 08/10 18:40 Order name: Cardiac monitoring; Complete Time: 20:56 ms3 08/10 18:40 Order name: EKG - Nurse/Tech; Complete Time: 20:56 ms3 08/10 18:40 Order name: IV Saline Lock; Complete Time: 20:56 ms3 08/10 18:40 Order name: Labs collected and sent; Complete Time: 20:06 ms3 08/10 18:40 Order name: O2 Per Protocol; Complete Time: 20:56 ms3 08/10 18:40 Order name: O2 Sat Monitoring; Complete Time: 20:56 ms3 Administered Medications: 21:17 Drug: NS 0.9% 250 ml Route: IV; Rate: 1000 ml; Site: right antecubital; sm5 21:49 Follow up: IV Status: Completed infusion; IV Intake: 250ml 5 21:58 Drug: Potassium Chloride 20 mEq Route: PO; 5 23:13 Follow up: Response: No adverse reaction 5 Disposition Summary: 08/10/21 22:03 Transfer Ordered Transfer Location: Other Acute Care Facility rn Reason: Higher level of care rn Condition: Stable rn Problem: new rn Symptoms: are unchanged rn Accepting Physician: Dr. Steward(08/10/21 23:58) 5 Diagnosis - End stage renal disease rn - Syncope, orthostatic hypotension rn - Hypokalemia rn - Muscle weakness (generalized) rn Forms: - Medication Reconciliation Form rn - SBAR form rn Signatures: Dispatcher [employer] EDMeño Oden MD MD rn Prokisch, Amanda RN RN ap3 Leon Escamilla DO DO ms3 Kathia Flaherty, RN RN 5 Corrections: (The following items were deleted from the chart) 21:24 20:43 PROBNP+C.LAB.BRZ ordered. [facility] 22:49 22:03 Dr. hemphill rn 23:58 22:49 Dr. Steward rn 5
--- NOTE | 2021-08-10 22:03 | ER ---
Nurse's Notes [facility] Name: Maki Tabares Age: 56 yrs Sex: Female : 1965 Arrival Date: 08/10/2021 Time: 18:29 Bed 14 Private MD: Diagnosis: End stage renal disease;Syncope, orthostatic hypotension;Hypokalemia;Muscle weakness (generalized) Presentation: 08/10 18:30 Chief complaint: Patient's son or daughter states: daughter reports the patient was ap3 trying to get out of the vehicle, when the daughter reports seeing the patients eyes roll back in her head, and reportedly started shaking. The daughter also reports it took a few minutes for the patient to "come to". They were originally coming in for evaluation of orthostatic blood pressure. It is reported that patients blood pressure drops and she gets light headed upon standing. Coronavirus screen: At this time, the client does not indicate any symptoms associated with coronavirus-19. Ebola Screen: No symptoms or risks identified at this time. Initial Sepsis Screen: Does the patient meet any 2 criteria? No. Patient's initial sepsis screen is negative. Does the patient have a suspected source of infection? No. Patient's initial sepsis screen is negative. Risk Assessment: Do you want to hurt yourself or someone else? Patient reports no desire to harm self or others. Onset of symptoms was August 10, 2021. 18:30 Method Of Arrival: Wheelchair ap3 18:30 Acuity: TAVIA 3 ap3 Triage Assessment: 18:32 General: Appears in no apparent distress. Behavior is calm, cooperative. Pain: Denies ap3 pain. Neuro: Level of Consciousness is awake, alert, obeys commands, Oriented to person, place, time, situation, Appropriate for age Speech is normal. Neuro: Seizure activity reported prior to arrival. Cardiovascular: Patient's skin is warm and dry. Respiratory: Airway is patent Respiratory effort is even, unlabored. Historical: - Allergies: 18:29 crawfish; ap3 18:29 SHELLFISH; ap3 - PMHx: 18:29 Diabetes - NIDDM; Dialysis; peritoneal; Hyperlipidemia; Hypertension; Parkinsons; ap3 - Immunization history:: Client reports receiving the 2nd dose of the Covid vaccine. - Social history:: Smoking status: Patient denies any tobacco usage or history of. Screenin:32 Abuse screen: Denies threats or abuse. Nutritional screening: No deficits noted. ap3 Tuberculosis screening: No symptoms or risk factors identified. Fall Risk Fall in past 12 months (25 points). Secondary diagnosis (15 points) No IV (0 pts). Ambulatory Aid- Crutches/Cane/Walker (15 pts). Gait- Impaired (20 pts.). Mental Status- Oriented to own ability (0 pts). Total Bowen Fall Scale indicates High Risk Score (45 or more points). Assessment: 20:00 General: Appears in no apparent distress. Behavior is cooperative. Neuro: No deficits sm5 noted. Perez Agitation-Sedation Scale (RASS): 0 - Alert and Calm Level of Consciousness is awake, alert, obeys commands, Oriented to person, place, time, situation. Cardiovascular: No deficits noted. Capillary refill < 3 seconds Patient's skin is warm and dry. Respiratory: No deficits noted. Airway is patent Trachea midline Respiratory effort is even, unlabored. 21:00 Reassessment: No changes from previously documented assessment. Patient and/or family sm5 updated on plan of care and expected duration. Pain level reassessed. 21:45 Reassessment: family asking who will complete pt's peritoneal dialysis tonight. sm5 Explained to pt and family that either pt or family member would have to complete peritoneal dialysis themselves with pt's own equipment and supplies. Family stating that they do not know how to do it and pt does not do it properly. Provider made aware. 22:30 Reassessment: No changes from previously documented assessment. Patient and/or family sm5 updated on plan of care and expected duration. Pain level reassessed. Patient is alert, oriented x 3, equal unlabored respirations, skin warm/dry/pink. 23:53 Reassessment: No changes from previously documented assessment. 5 Vital Signs: 18:29 BP 124 / 65; Pulse 65; Resp 18; Temp 98.6; Pulse Ox 100% ; Weight 74.84 kg; Height 5 ap3 ft. 1 in. (154.94 cm); 20:56 BP 142 / 60; Pulse 63; Resp 15; Pulse Ox 100% on R/A; sm5 23:00 BP 137 / 52; Pulse 72; Resp 19; Pulse Ox 100% on R/A; sm5 18:29 Body Mass Index 31.18 (74.84 kg, 154.94 cm) ap3 ED Course: 18:29 Patient arrived in ED. ap3 18:31 Leon Escamilla DO is Attending Physician. ms3 18:32 Triage completed. ap3 18:33 Arm band placed on left wrist. ap3 18:58 Attending Physician role handed off by Leon Escamilla DO rn 18:58 Meño Serna MD is Attending Physician. rn 19:07 XRAY Chest (1 view) In Process Unspecified. EDMS 19:30 Imelda Loya, RN is Primary Nurse. vc1 19:50 Kathia Flaherty, GABRIELA is Primary Nurse. sm5 20:07 Basic Metabolic Panel Sent. sm5 20:07 CBC with Diff Sent. sm5 20:07 Troponin HS Sent. sm5 21:00 Patient has correct armband on for positive identification. Placed in gown. Bed in low sm5 position. Call light in reach. Client placed on continuous cardiac and pulse oximetry monitoring. NIBP monitoring applied. 21:09 Inserted saline lock: 22 gauge in right antecubital area, using aseptic technique. as6 22:09 initiated a transfer with Hyun Laughlin from [facility] [place] 22:13 SARS-COV-2 RT PCR (Document "Date of Onset" if Symptomatic) Sent. 5 22:48 administrative approval given by Hyun Laughlin/ patient has been accepted to [facility] [id number]/ Dr. Meehan accepted the patient in transfer/report to be called to [phone]. awaiting covid results. 23:54 No provider procedures requiring assistance completed. Patient transferred, IV remains sm5 in place. Administered Medications: 21:17 Drug: NS 0.9% 250 ml Route: IV; Rate: 1000 ml; Site: right antecubital; 5 21:49 Follow up: IV Status: Completed infusion; IV Intake: 250ml 5 21:58 Drug: Potassium Chloride 20 mEq Route: PO; 5 23:13 Follow up: Response: No adverse reaction 5 Medication: 18:33 VIS not applicable for this client. ap3 Intake: 21:49 IV: 250ml; Total: 250ml. 5 Outcome: 22:03 ER care complete, transfer ordered by . rn 23:54 Transferred by ground EMS to other acute care facility: [facility]. Transfer sm5 form completed. X-rays sent w/ patient. 23:54 Condition: good 5 23:54 Instructed on the need for transfer. 23:58 Patient left the ED. sm5 Signatures: Dispatcher [employer] EDMS Meño Serna MD MD rn Prokisch, Amanda, RN RN ap3 Nori Garcia mw2 Leon Escamilla, DO ms3 Jerad Lopez RN RN as6 Kathia Flaherty RN RN sm5 Imelda Loya RN RN vc1 Corrections: (The following items were deleted from the chart) 18:36 18:30 Chief complaint: Patient's son or daughter states: daughter reports the patient ap3 was trying to get out of the vehicle, when the daughter reports seeing the patients eyes roll back in her head, and reportedly started shaking. The daughter also reports it took a few minutes for the patient to "come to". They were originally coming in for evaluation of orthostatic blood pressure. ap3
[2021-08-11 00:21] VITALS: TEMP 98.6; O2SAT 100
[2021-08-11 00:24] VITALS: BP 137/52
--- NOTE | 2021-08-11 07:37 | EKG ---
Test Date: 2021-08-10 Test Time: 20:51:55 Prospecting Driller Helper: RENETTA MEASUREMENT RESULTS: Intervals: Rate: 75 MA: 180 QRSD: 78 QT: 484 QTc: 540 [place]: P: 65 MA: 180 QRS: 30 T: -64 INTERPRETIVE STATEMENTS: Normal sinus rhythm Septal infarct, age undetermined ST & T wave abnormality, consider inferolateral ischemia Prolonged QT Abnormal ECG Compared to ECG 08/02/2020 22:34:02 ST (T wave) deviation now present Possible ischemia now present Myocardial infarct finding still present Electronically Signed On 08-11-21 07:36:58 CDT by Ja Hudson
== END 2021-08-10 23:58 ==
LOC: ER 18:26
DX: I95.1 Orthostatic hypotension (principal); E87.6 Hypokalemia; M62.81 Muscle weakness (generalized); E11.22 Type 2 diabetes mellitus with diabetic chronic kidney disease; I12.0 Hypertensive chronic kidney disease with stage 5 chronic kidney disease or end stage renal disease; N18.6 End stage renal disease; Z99.2 Dependence on renal dialysis; G20 Parkinson's disease; Z20.822 Contact with and (suspected) exposure to COVID-19
CPT/HCPCS: 93005; 85025; 80048; 36415; 84484; 83880; 71045; 96360; 99285; U0003; J7050

== ENCOUNTER 2021-09-27 09:39 | Emergency (ER) | payer OTHER ==
--- NOTE | 2021-09-27 10:01 | RAD REPORT ---
EXAM DESCRIPTION: RAD - Knee Right 3 View - 09/27/2021 9:55 am CLINICAL HISTORY: PAIN COMPARISON: Knee Right 2 View dated 09/29/2012 FINDINGS: Right total knee prosthesis is in place, new from the remote 2013 comparison. No radiograp hic evidence for loosening. No fracture of the [place] bone identifiable. Patella marginal spurs are p resent. No joint effusion identifiable. No foreign body or other soft tissue abnormality. IMPRESSION: Right total knee prosthesis in place with no radiographic evidence for loosening. No fracture of the [place] bone. No joint effusion identifiable.
[2021-09-27 10:11] LABS: Hematocrit 25.7 % (36.0-45.0); Lymphocytes % 16.3 % (15.3-44.8); MCV 94.6 fL (80-100); RBC Red Blood Cell Count 2.72 M/uL (3.86-4.86)
--- NOTE | 2021-09-27 10:29 | RAD REPORT ---
EXAM DESCRIPTION: CT - CTHCSPWOC - 09/27/2021 10:09 am CLINICAL HISTORY: fall COMPARISON: Head Brain Wo Cont dated 08/04/2020 TECHNIQUE: Axial 5 mm thick images of the head were obtained. Axial 2 mm thick images of the cervic al spine were obtained with sagittal and coronal reconstruction images generated and reviewed. All CT scans are performed using dose optimization technique as appropriate and may include automated exposure control or mA/KV adjustment according to patient size. FINDINGS: No intracranial hemorrhage, mass, edema or acute intracranial finding. No suspicion for ac augustine cortical level infarction. No cortical edema or sulcal effacement. Moderate severity atrophy agai n noted. Large areas of decreased attenuation in each lentiform nucleus noted matching the July 2020 s tudy. Ventricles are in proportion to volume loss. No extra-axial fluid collections. Mastoid air cell s are clear. Mucosal thickening and air-fluid levels are present throughout the paranasal sinuses. No globe or orbit abnormality seen. No skull fracture or measurable scalp hematoma. Cervical body height and alignment are normal. Disc space narrowing present at C3-4, C4-5 and C5-6. N o fracture or acute bony abnormality. Facet joint degenerative changes are present. No to significant foraminal stenosis or significant canal stenosis. Central canal detail is inherently limited. No paraspinal mass or hematoma. IMPRESSION: Negative CT head examination for acute or significant finding. Intracranial findings are stable from July 2020. Negative CT cervical spine examination for acute or significant finding.
[2021-09-27 10:34] LABS: Potassium 3.5 mmol/L (3.5-5.1)
--- NOTE | 2021-09-27 11:09 | ER ---
Nurse's Notes [facility] Name: Maki Tabares Age: 56 yrs Sex: Female : 1965 Arrival Date: 09/27/2021 Time: 09:41 Bed 2 Private MD: Diagnosis: Fall from bed, initial encounter;Pain in right knee;Acute post-traumatic headache;Thrombocytosis Presentation: 09/27 09:42 Chief complaint: EMS states: Toned out for fall, pt was sitting in wheelchair reached jl7 for something and fell out of wheelchair, hit her head and remained on the floor for approximately 10 minutes when staff found her. Pt c/o right knee pain and headache. Care prior to arrival: None. Mechanism of Injury: Fall out of chair. Trauma event details: Injury occurred in the [facility], Injury occurred: in an institution. Injury occurred: September 27, 2021 Injury occurred at: 09:15. 09:42 Acuity: TAVIA 2 jl7 09:42 Method Of Arrival: EMS: [facility] jl7 09:51 Coronavirus screen: At this time, the client does not indicate any symptoms associated jl with coronavirus-19. Ebola Screen: No symptoms or risks identified at this time. Initial Sepsis Screen: Does the patient meet any 2 criteria? No. Patient's initial sepsis screen is negative. Does the patient have a suspected source of infection? No. Patient's initial sepsis screen is negative. Risk Assessment: Do you want to hurt yourself or someone else? Patient reports no desire to harm self or others. Onset of symptoms was September 27, 2021 at 09:15. Trauma Activation: Physician: ED Physician; Name: Francine; Notified At: 09:40; Arrived At: 09:40 Physician: General Surgeon; Name: ; Notified At: 09:40; Arrived At: Physician: Radiology; Name: Otilio; Notified At: 09:40; Arrived At: 09:42 Physician: Respiratory; Name: ; Notified At: 09:40; Arrived At: Physician: Lab; Name: ; Notified At: 09:40; Arrived At: Historical: - Allergies: 09:51 crawfish; jl7 09:51 SHELLFISH; jl7 - Home Meds: 09:51 topiramate 50 mg oral cp24 1 cap [Active]; valproic acid 250 mg Oral cap 1 cap every 8 jl7 hours [Active]; clonazepam 0.5 mg Oral tab [Active]; Eliquis 5 mg oral tab 1 tab 2 times per day [Active]; hydralazine 100 mg Oral tab 1 tab 3 times per day [Active]; carbidopa-levodopa 25-100 mg Oral tab 1 tab 3 times per day [Active]; levetiracetam 500 mg/5 mL (5 mL) oral soln [Active]; metoprolol tartrate 100 mg oral tab 1 tab once daily [Active]; pravastatin 20 mg Oral tab 1 tab nightly [Active]; nifedipine 60 mg oral tr24 1 tab [Active]; - PMHx: 09:51 Diabetes - NIDDM; Dialysis; peritoneal; Hyperlipidemia; Hypertension; Parkinsons; jl7 DNR/DNI; Seizure; - Immunization history: Last tetanus immunization: unknown. - Social history:: Smoking status: unknown. Screenin:42 Abuse screen: Denies threats or abuse. Denies injuries from another. Tuberculosis jl7 screening: No symptoms or risk factors identified. 09:57 Nutritional screening: No deficits noted. Fall Risk Fall in past 12 months (25 points). jl7 Secondary diagnosis (15 points) impaired mobility, Ambulatory Aid- None/Bed Rest/Nurse Assist (0 pts). Gait- Weak (10 pts.). Mental Status- Overestimates/Forgets Limitations (15 pts.). Total Bowen Fall Scale indicates High Risk Score (45 or more points). Fall prevention measures have been instituted. Side Rails Up X 2 Placed Close to Nursing Station Frequent Obs/Assessments Occuring Family Present and informed to notify staff if the need to leave the bedside As available patient and family educated on Fall Prevention Program and Strategies. Primary Survey: 09:42 NO uncontrolled hemorrhage observed. A: The client is alert. Airway: patent. jl7 Breathing/Chest: Respiratory effort: spontaneous, unlabored, Breath sounds: clear, bilaterally. Respiratory pattern: regular, Chest inspection: symmetrical rise and fall of the chest. Circulation: Pulses: palpable right radial artery and left radial artery. Skin color: pink, Skin temperature: warm. Disability Client is alert. Exposure/Environment: There is no evidence of uncontrolled external bleeding. No obvious injuries are noted at this time. A warming method has been applied: A warm blanket has been provided to the patient. 10:16 Reassessment Breathing: Spontaneous respiratory effort, equal unlabored respirations, jl7 breath sounds clear bilaterally, regular pattern with symmetrical chest rise and fall. Assessment: 09:41 General: Appears in no apparent distress. uncomfortable, Behavior is calm, cooperative, jl7 appropriate for age. Pain: Complains of pain in right knee and BLANCA Pain currently is 9 out of 10 on a pain scale. Neuro: Level of Consciousness is awake, alert, obeys commands, Oriented to person, place, time, situation. Cardiovascular: Patient's skin is warm and dry. Respiratory: Airway is patent Respiratory effort is even, unlabored, Respiratory pattern is regular, symmetrical. Derm: Skin is pink, warm \T\ dry. 10:30 Reassessment: Cleaned pt of bowel incontinence. Pt's gastric tube noted to be unclamped jl7 and unsecured with continents leaked and soaking pt's hospital gown. Tube clamped and secured, pt gown changed. 11:20 Reassessment: EMS at bedside to transport pt. 7 Vital Signs: 09:42 BP 149 / 77; Pulse 81; Resp 16; Temp 98.5; Pulse Ox 100% ; Weight 75.75 kg; Height 5 jl7 ft. 1 in. (154.94 cm); Pain 9/10; 10:17 BP 150 / 94; Pulse 81; Resp 15; Pulse Ox 100% ; jl7 10:43 BP 169 / 96; Pulse 88; Resp 15; Pulse Ox 100% ; jl7 11:26 BP 153 / 86; Pulse 85; Resp 15; Pulse Ox 100% ; jl7 09:42 Body Mass Index 31.55 (75.75 kg, 154.94 cm) jl7 [place] Coma Score: 09:42 Eye Response: spontaneous(4). Verbal Response: oriented(5). Motor Response: obeys jl7 commands(6). Total: 15. 10:17 Eye Response: spontaneous(4). Verbal Response: oriented(5). Motor Response: obeys jl7 commands(6). Total: 15. 10:43 Eye Response: spontaneous(4). Verbal Response: oriented(5). Motor Response: obeys jl7 commands(6). Total: 15. 11:26 Eye Response: spontaneous(4). Verbal Response: oriented(5). Motor Response: obeys jl7 commands(6). Total: 15. Trauma Score (Adult): 09:42 Eye Response: spontaneous(1); Verbal Response: oriented(1); Motor Response: obeys jl7 commands(2); Systolic BP: > 89 mm Hg(4); Respiratory Rate: 10 to 29 per min(4); [place] Score: 15; Trauma Score: 12 ED Course: 09:41 Patient arrived in ED. iw 09:41 Mike Holder, GABRIELA is Primary Nurse. jl7 09:42 Patient has correct armband on for positive identification. Bed in low position. Call jl7 light in reach. Side rails up X2. 09:42 Patient maintains SpO2 saturation greater than 95% on room air. Thermoregulation: warm jl7 blanket given to patient. 09:43 Leon Escamilla DO is Attending Physician. ms3 09:45 Triage completed. jl7 09:51 Arm band placed on right wrist. jl7 09:56 Knee Right 3 View XRAY In Process Unspecified. EDMS 09:57 Pulse ox on. NIBP on. Warm blanket given. jl7 10:10 Head C Spine Mpr Wo Con In Process Unspecified. EDMS 10:36 Inserted saline lock: 20 gauge in right forearm, using aseptic technique. Blood bp collected. 10:43 Initial lab(s) drawn, by ED staff, sent to lab. jl7 11:26 No provider procedures requiring assistance completed. IV discontinued, intact, jl7 bleeding controlled, No redness/swelling at site. Pressure dressing applied. Administered Medications: No medications were administered Medication: 09:57 VIS not applicable for this client. jl7 Intake: 11:39 PO: 0ml; IV: 0ml; Tubes: 0ml (); Total: 0ml. jl7 Output: 11:39 Urine: 0ml; Gastric: 0ml; Stool: 0; EBL: 0ml; Drainage: 0ml; Other: 0; Total: 0ml. jl7 Outcome: 11:09 Discharge ordered by . ms3 11:39 Discharged to group home. Report called to KAMRYN Collins jl7 11:39 Condition: stable 11:39 Discharge instructions given to patient, family, group home, Instructed on discharge instructions, follow up and referral plans. Demonstrated understanding of instructions, follow-up care. 11:39 Patient's length of stay was not longer than 2 hours. 11:40 Patient left the ED. jl7 Signatures: Dispatcher [employer] EDYamilet Estrada, GABRIELA OCHOA iw Mike Holder RN RN jl7 Neno Kirby RN RN bp Sims, Marcus, DO DO ms3 Corrections: (The following items were deleted from the chart) 10:47 10:43 Reassessment: Patient appears in no apparent distress at this time. No changes jl7 from previously documented assessment. Patient and/or family updated on plan of care and expected duration. Pain level reassessed. Patient is alert, oriented x 3, equal unlabored respirations, skin warm/dry/pink. jl7
--- NOTE | 2021-09-27 11:10 | EDPHYS ---
Physician Documentation [facility] Name: Maki Tabares Age: 56 yrs Sex: Female : 1965 Arrival Date: 09/27/2021 Time: 09:41 Bed 2 Private MD: ED Physician Leon Escamilla HPI: 09/27 09:48 This 56 yrs old Black Female presents to ER via EMS with complaints of Fall Injury. ms3 09:48 Details of fall: The patient fell from a supine position, out of bed. Onset: The ms3 symptoms/episode began/occurred acutely, this morning. Associated injuries: The patient sustained injury to the head, pain, right knee, painful injury. Severity of symptoms: At their worst the symptoms were moderate, in the emergency department the symptoms are unchanged. Historical: - Allergies: 09:51 crawfish; jl7 09:51 SHELLFISH; jl7 - Home Meds: 09:51 topiramate 50 mg oral cp24 1 cap [Active]; valproic acid 250 mg Oral cap 1 cap every 8 jl7 hours [Active]; clonazepam 0.5 mg Oral tab [Active]; Eliquis 5 mg oral tab 1 tab 2 times per day [Active]; hydralazine 100 mg Oral tab 1 tab 3 times per day [Active]; carbidopa-levodopa 25-100 mg Oral tab 1 tab 3 times per day [Active]; levetiracetam 500 mg/5 mL (5 mL) oral soln [Active]; metoprolol tartrate 100 mg oral tab 1 tab once daily [Active]; pravastatin 20 mg Oral tab 1 tab nightly [Active]; nifedipine 60 mg oral tr24 1 tab [Active]; - PMHx: 09:51 Diabetes - NIDDM; Dialysis; peritoneal; Hyperlipidemia; Hypertension; Parkinsons; jl7 DNR/DNI; Seizure; - Immunization history: Last tetanus immunization: unknown. - Social history:: Smoking status: unknown. ROS: 09:48 Constitutional: Negative for fever, and chills. ENT: Negative for injury, pain, and ms3 discharge, Neck: Negative for injury, pain, and swelling, Cardiovascular: Negative for chest pain, and palpitations. Respiratory: Negative for shortness of breath, cough, wheezing, and pleuritic chest pain, Abdomen/GI: Negative for abdominal pain, nausea, vomiting, diarrhea, and constipation, Back: Negative for injury and pain, Skin: Negative for injury, rash, and discoloration, Neuro: Negative for headache, weakness, numbness, tingling. 09:48 MS/extremity: Positive for Right knee pain. Exam: 09:48 Constitutional: This is a well developed, well nourished patient who is awake, alert, ms3 and in no acute distress. Head/Face: Normocephalic, atraumatic. Neck: Trachea midline, no cervical lymphadenopathy. Supple, full range of motion without nuchal rigidity, or vertebral point tenderness. No Meningismus. Chest/axilla: Normal chest wall appearance and motion. Nontender with no deformity. Cardiovascular: Regular rate and rhythm with a normal S1 and S2. No gallops, murmurs, or rubs. Normal PMI, no JVD. No pulse deficits. Respiratory: Lungs have equal breath sounds bilaterally, clear to auscultation and percussion. No rales, rhonchi or wheezes noted. No increased work of breathing, no retractions or nasal flaring. Abdomen/GI: Soft, non-tender, with normal bowel sounds. No distension or tympany. No guarding or rebound. No evidence of tenderness throughout. Skin: Warm, dry with normal turgor. Normal color with no rashes, no lesions, and no evidence of cellulitis. Psych: Awake, alert, with orientation to person, place and time. Behavior, mood, and affect are within normal limits. 09:48 Musculoskeletal/extremity: Extremities: noted in the right knee: pain. Vital Signs: 09:42 BP 149 / 77; Pulse 81; Resp 16; Temp 98.5; Pulse Ox 100% ; Weight 75.75 kg; Height 5 jl7 ft. 1 in. (154.94 cm); Pain 9/10; 10:17 BP 150 / 94; Pulse 81; Resp 15; Pulse Ox 100% ; jl7 10:43 BP 169 / 96; Pulse 88; Resp 15; Pulse Ox 100% ; jl7 11:26 BP 153 / 86; Pulse 85; Resp 15; Pulse Ox 100% ; jl7 09:42 Body Mass Index 31.55 (75.75 kg, 154.94 cm) jl7 Luz Coma Score: 09:42 Eye Response: spontaneous(4). Verbal Response: oriented(5). Motor Response: obeys jl7 commands(6). Total: 15. 10:17 Eye Response: spontaneous(4). Verbal Response: oriented(5). Motor Response: obeys jl7 commands(6). Total: 15. 10:43 Eye Response: spontaneous(4). Verbal Response: oriented(5). Motor Response: obeys jl7 commands(6). Total: 15. 11:26 Eye Response: spontaneous(4). Verbal Response: oriented(5). Motor Response: obeys jl7 commands(6). Total: 15. Trauma Score (Adult): 09:42 Eye Response: spontaneous(1); Verbal Response: oriented(1); Motor Response: obeys jl7 commands(2); Systolic BP: > 89 mm Hg(4); Respiratory Rate: 10 to 29 per min(4); Luz Score: 15; Trauma Score: 12 MDM: 09:43 Patient medically screened. ms3 09:48 Differential diagnosis: contusion, fracture, sprain, strain, ICH. ms3 21:44 Data reviewed: vital signs. ms3 09/27 09:44 Order name: Basic Metabolic Panel; Complete Time: 10:41 ms3 09/27 09:44 Order name: CBC with Diff ms3 09/27 09:44 Order name: Type And Screen; Complete Time: 11:07 ms3 09/27 09:44 Order name: CT Head C Spine ms3 09/27 10:45 Order name: CBC Smear Scan EDMS 09/27 09:44 Order name: Labs collected and sent; Complete Time: 10:15 ms3 09/27 09:44 Order name: Knee Right 3 View XRAY; Complete Time: 10:36 ms3 09/27 09:48 Order name: Head C Spine Mpr Wo Con; Complete Time: 10:36 EDMS Administered Medications: No medications were administered Disposition Summary: 09/27/21 11:09 Discharge Ordered Location: Home ms3 Problem: new ms3 Symptoms: are unchanged ms3 Condition: Stable ms3 Diagnosis - Fall from bed, initial encounter ms3 - Pain in right knee ms3 - Acute post-traumatic headache ms3 - Thrombocytosis ms3 Followup: ms3 - With: Private Physician - When: 2 - 3 days - Reason: Re-evaluation by your physician Discharge Instructions: - Discharge Summary Sheet ms3 - Musculoskeletal Pain ms3 - Essential Thrombocythemia ms3 Forms: - Medication Reconciliation Form ms3 - Thank You Letter ms3 - Antibiotic Education ms3 - Prescription Opioid Use ms3 Signatures: Dispatcher [employer] Mike To, RN RN jl7 Leon Escamilla DO DO ms3
[2021-09-27 11:51] VITALS: TEMP 98.5; O2SAT 100
[2021-09-27 11:58] VITALS: BP 153/86
[2021-09-27 13:09] LABS: Blood Morphology Comment NOT SEEN (NOT SEEN); Platelet Estimate INCR; White Blood Cell Scan OK (OK)
== END 2021-09-27 11:40 | disposition home or self-care (01) ==
LOC: ER 09:39
DX: G44.319 Acute post-traumatic headache, not intractable (principal); M25.561 Pain in right knee; D69.6 Thrombocytopenia, unspecified; W06.XXXA Fall from bed, initial encounter; G20 Parkinson's disease; I10 Essential (primary) hypertension; E11.9 Type 2 diabetes mellitus without complications; Z99.2 Dependence on renal dialysis; Z79.01 Long term (current) use of anticoagulants; Z91.013 Allergy to seafood
CPT/HCPCS: 36415; 70450; 72125; 80048; 85025; 86850; 86900; 86901; 99284

== ENCOUNTER 2021-09-30 14:36 | Observation (INO) | payer OTHER ==
[2021-09-30 15:20] LABS: Absolute Lymphocytes (CBC) 1.8 K/uL (0.7-4.9); Hematocrit 25.8 % (36.0-45.0); Lymphocytes % 22.4 % (15.3-44.8); MCV 93.2 fL (80-100); MPV 6.9 fL (7.6-11.3); RBC Red Blood Cell Count 2.77 M/uL (3.86-4.86)
--- NOTE | 2021-09-30 15:39 | EDPHYS ---
Physician Documentation [facility] Name: Maki Tabares Age: 56 yrs Sex: Female : 1965 Arrival Date: 09/30/2021 Time: 14:38 Bed 2 Private MD: ED Physician Leon Escamilla HPI: 09/30 14:45 This 56 yrs old Black Female presents to ER via Unassigned with complaints of Altered ms3 Mental Status, Shortness Of Breath - Missed dialysis. 14:45 The patient presents with Slow to respond. Onset: The symptoms/episode began/occurred ms3 acutely, 1 day(s) ago. Possible causes: Has not had dialysis. Associated signs and symptoms: Pertinent positives: shortness of breath. Current symptoms: In the emergency department the patient's symptoms are unchanged from the initial presentation. 56-year-old female with past medical history of Parkinson's, seizures, hypertension, hyperlipidemia, diabetes, end-stage renal disease presents from [facility] for shortness of breath. Patient has not had dialysis since September 24. Patient states her session this morning was canceled.. Historical: - Allergies: 14:46 crawfish; ld1 14:46 SHELLFISH; ld1 - PMHx: 14:46 Diabetes - NIDDM; Parkinsons; Seizure; Hypertension; Hyperlipidemia; Dialysis; ld1 peritoneal; - PSHx: 14:47 Total abdominal hysterectomy; ld1 - Immunization history:: Adult Immunizations up to date, Client reports receiving the 2nd dose of the Covid vaccine. - Social history:: Smoking status: Patient denies any tobacco usage or history of. Patient/guardian denies using alcohol. ROS: 14:59 Constitutional: Negative for fever, and chills. Neck: Negative for injury, pain, and ms3 swelling, Cardiovascular: Negative for chest pain, and palpitations. 14:59 Abdomen/GI: Negative for abdominal pain, nausea, vomiting, diarrhea, and constipation, MS/Extremity: Negative for injury and deformity, Skin: Negative for injury, rash, and discoloration, Neuro: Negative for headache, weakness, numbness, tingling. Hematologic/Lymphatic: Negative for swollen nodes, abnormal bleeding, and unusual bruising. 14:59 Respiratory: Positive for dyspnea on exertion. Exam: 14:59 Constitutional: This is a well developed, well nourished patient who is awake, alert, ms3 and in no acute distress. Head/Face: Normocephalic, atraumatic. Chest/axilla: Normal chest wall appearance and motion. Nontender with no deformity. Cardiovascular: Regular rate and rhythm with a normal S1 and S2. No gallops, murmurs, or rubs. Normal PMI, no JVD. No pulse deficits. Respiratory: Lungs have equal breath sounds bilaterally, clear to auscultation and percussion. No rales, rhonchi or wheezes noted. No increased work of breathing, no retractions or nasal flaring. Abdomen/GI: Soft, non-tender, with normal bowel sounds. No distension or tympany. No guarding or rebound. No evidence of tenderness throughout. Skin: Warm, dry with normal turgor. Normal color with no rashes, no lesions, and no evidence of cellulitis. Psych: Awake, alert, with orientation to person, place and time. Behavior, mood, and affect are within normal limits. 15:37 ECG was reviewed by the Attending Physician. ms3 Vital Signs: 14:44 BP 129 / 48; Pulse 70; Resp 16; Pulse Ox 100% on R/A; Weight 74.84 kg; Height 5 ft. 6 ld1 in. (167.64 cm); Pain 0/10; 18:41 BP 147 / 61; Pulse 75; Resp 22; Pulse Ox 100% ; ld1 14:44 Body Mass Index 26.63 (74.84 kg, 167.64 cm) ld1 MDM: 14:44 Patient medically screened. ms3 14:59 Differential Diagnosis: electrolyte abnormality, Fluid overload vs CHF. ms3 15:00 Data interpreted: property assessment monitor: rate is 72 beats/min, rhythm is normal sinus rhythm, ms3 with no ectopy, Interpretation: normal rate, normal rhythm. 16:26 Data reviewed: vital signs, nurses notes, lab test result(s), radiologic studies, and ms3 as a result, I will admit patient. Data interpreted: Pulse oximetry: on room air is 100 %. Interpretation: normal. Counseling: I had a detailed discussion with the patient and/or guardian regarding: the historical points, exam findings, and any diagnostic results supporting the discharge/admit diagnosis, lab results, radiology results, the need for further work-up and treatment in the hospital. ED course: Discussed case with Dr Mcgarry and patient will need observation for emergent dialysis. Would like the hospitalist to admit. Discussed this with Dr Alex and he accepts admission.. 09/30 14:44 Order name: Basic Metabolic Panel; Complete Time: 16:26 ms3 09/30 14:44 Order name: CBC with Diff; Complete Time: 15:45 ms3 09/30 14:44 Order name: NT PRO-BNP; Complete Time: 16:26 ms3 09/30 14:44 Order name: Troponin HS; Complete Time: 16:26 ms3 09/30 15:39 Order name: SARS-COV-2 RT PCR (Document "Date of Onset" if Symptomatic) ms3 09/30 16:40 Order name: Basic Metabolic Panel EDMS 09/30 14:44 Order name: XRAY Chest (1 view); Complete Time: 16:26 ms3 09/30 14:44 Order name: EKG; Complete Time: 14:45 ms3 09/30 14:44 Order name: Cardiac monitoring; Complete Time: 14:49 ms3 09/30 16:40 Order name: CONS Physician Consult EDMS 09/30 16:40 Order name: Renal EDMS 09/30 16:40 Order name: Basic Metabolic Panel EDMS 09/30 16:40 Order name: CBC with Automated Diff EDMS 09/30 16:40 Order name: CBC with Automated Diff EDMS 09/30 14:44 Order name: EKG - Nurse/Tech; Complete Time: 15:19 ms3 09/30 14:44 Order name: IV Saline Lock; Complete Time: 15:19 ms3 09/30 14:44 Order name: Labs collected and sent; Complete Time: 15:19 ms3 09/30 14:44 Order name: O2 Per Protocol; Complete Time: 14:49 ms3 09/30 14:44 Order name: O2 Sat Monitoring; Complete Time: 14:49 ms3 EC:37 Rate is 70 beats/min. Rhythm is regular. QRS [place] is Normal. Clinical impression: NSR ms3 w/ Non-specific ST/T Changes. Interpreted by me. Reviewed by me. Administered Medications: No medications were administered Disposition Summary: 09/30/21 15:39 Hospitalization Ordered Hospitalization Status: Observation ms3 Provider: Mg Alex ms3 Location: Telemetry/MedSurg (observation) ms3 Condition: Stable ms3 Problem: new ms3 Symptoms: are unchanged ms3 Bed/Room Type: Standard ms3 Room Assignment: 426(09/30/21 18:43) em1 Diagnosis - End stage renal disease ms3 - Dyspnea, unspecified ms3 Forms: - Medication Reconciliation Form ms3 - SBAR form ms3 Signatures: Dispatcher [employer] Ramin Phillips em1 Leon Escamilla DO DO ms3 Christie Garcia RN RN ld1 Corrections: (The following items were deleted from the chart) 14:47 14:46 PMHx: DNR/DNI; ld1 ld1 14:47 14:46 PSHx: None; ld1 ld1 18:43 15:39 ms3 em1
--- NOTE | 2021-09-30 15:39 | ER ---
Nurse's Notes [facility] Name: Maki Tabares Age: 56 yrs Sex: Female : 1965 Arrival Date: 09/30/2021 Time: 14:38 Bed 2 Private MD: Diagnosis: End stage renal disease;Dyspnea, unspecified Presentation: 09/30 14:44 Chief complaint: EMS states: toned out to [facility] for altered mental status and ld1 SOB. Upon arrival SpO2 100% RA. EMS reports pt missed dialysis this morning - last dialysis September 24. Coronavirus screen: At this time, the client does not indicate any symptoms associated with coronavirus-19. Ebola Screen: No symptoms or risks identified at this time. Initial Sepsis Screen: Does the patient meet any 2 criteria? No. Patient's initial sepsis screen is negative. Does the patient have a suspected source of infection? No. Patient's initial sepsis screen is negative. Risk Assessment: Do you want to hurt yourself or someone else? Patient reports no desire to harm self or others. Onset of symptoms was September 30, 2021. 14:44 Method Of Arrival: EMS: [facility] ld1 14:44 Acuity: TAVIA 3 ld1 Triage Assessment: 14:47 General: Appears in no apparent distress. comfortable, Behavior is calm, cooperative, ld1 appropriate for age. Pain: Denies pain. EENT: No signs and/or symptoms were reported regarding the EENT system. Neuro: Level of Consciousness is awake, alert, obeys commands, Oriented to person, place, time, situation, Appropriate for age. Cardiovascular: Capillary refill < 3 seconds Patient's skin is warm and dry. Rhythm is sinus rhythm. Respiratory: Airway is patent Respiratory effort is even, unlabored, Respiratory pattern is regular, symmetrical. GI: Abdomen is round non-distended. : No signs and/or symptoms were reported regarding the genitourinary system. Derm: No signs and/or symptoms reported regarding the dermatologic system. Musculoskeletal: No signs and/or symptoms reported regarding the musculoskeletal system. Historical: - Allergies: 14:46 crawfish; ld1 14:46 SHELLFISH; ld1 - PMHx: 14:46 Diabetes - NIDDM; Parkinsons; Seizure; Hypertension; Hyperlipidemia; Dialysis; ld1 peritoneal; - PSHx: 14:47 Total abdominal hysterectomy; ld1 - Immunization history:: Adult Immunizations up to date, Client reports receiving the 2nd dose of the Covid vaccine. - Social history:: Smoking status: Patient denies any tobacco usage or history of. Patient/guardian denies using alcohol. Screenin:48 Abuse screen: Denies threats or abuse. Denies injuries from another. Nutritional ld1 screening: No deficits noted. Tuberculosis screening: No symptoms or risk factors identified. Fall Risk None identified. Assessment: 14:48 Reassessment: See triage assessment. ld1 Vital Signs: 14:44 BP 129 / 48; Pulse 70; Resp 16; Pulse Ox 100% on R/A; Weight 74.84 kg; Height 5 ft. 6 ld1 in. (167.64 cm); Pain 0/10; 18:41 BP 147 / 61; Pulse 75; Resp 22; Pulse Ox 100% ; ld1 14:44 Body Mass Index 26.63 (74.84 kg, 167.64 cm) ld1 ED Course: 14:38 Patient arrived in ED. eh3 14:43 Christie Garcia, GABRIELA is Primary Nurse. ld1 14:44 Leon Escamilla DO is Attending Physician. ms3 14:45 Triage completed. ld1 14:47 Arm band placed on right wrist. ld1 14:48 Patient has correct armband on for positive identification. Placed in gown. Bed in low ld1 position. Call light in reach. Side rails up X2. court monitor on. Pulse ox on. NIBP on. Door closed. Noise minimized. Warm blanket given. 14:48 No provider procedures requiring assistance completed. ld1 15:19 Inserted saline lock: 20 gauge in right antecubital area, using aseptic technique. eh3 Blood collected. 15:38 Mg Alex MD is Hospitalizing Provider. ms3 15:38 EKG done, by ED staff, reviewed by Leon Escamilla DO. dh3 15:41 XRAY Chest (1 view) In Process Unspecified. EDMS 15:51 SARS-COV-2 RT PCR (Document "Date of Onset" if Symptomatic) Sent. eh3 Administered Medications: No medications were administered Medication: 14:48 VIS not applicable for this client. ld1 Outcome: 15:39 Decision to Hospitalize by Provider. ms3 19:50 Patient left the ED. ds4 Signatures: Dispatcher [employer] EDMS Bob Caballero ds4 Vickie Cohen dh3 Leon Escamilla DO DO ms3 Christie Garcia, GABRIELA RN ld1 Iveth Bedolla 3 Corrections: (The following items were deleted from the chart) 14:46 PMHx: DNR/DNI; ld1 ld1 14:46 PSHx: None; ld1 ld1
[2021-09-30 15:52] LABS: Potassium 3.4 mmol/L (3.5-5.1); Troponin High Sensitivity 15.9 pg/mL (<58.9)
--- NOTE | 2021-09-30 15:57 | RAD REPORT ---
EXAM DESCRIPTION: Eliud Single View09/30/2021 3:40 pm CLINICAL HISTORY: Shortness of breath COMPARISON: July 2021 FINDINGS: The lungs appear clear of acute infiltrate. The heart is normal size A central venous catheter in place IMPRESSION: No acute abnormalities displayed
[2021-09-30] MEDS ORDERED: ONDANSETRON 4 MG/2 ML VIAL IV PRN (16:35)
--- NOTE | 2021-09-30 16:45 | P.HP ---
Certification for Inpatient Patient admitted to: Observation With expected LOS: <2 Midnights Practitioner: I am a practitioner with admitting privileges, knowledge of patient current condition, hospital course, and medical plan of care. Services: Services provided to patient in accordance with Admission requirements found in Title 42 Section 412.3 of the Code of Federal Regulations Patient History Date of Service: 09/30/21 Reason for admission: Missed dialysis session History of Present Illness: 56-year-old female patient with medical history significant for ESRD on dialysis , hypertension, hyperlipidemia, and immobility was evaluated in ER for episode of necessary cessation. Her last dialysis session was on 24 September 2021. She had complained of lethargy weakness, cough, mild shortness of breath. No report of nausea, vomiting, diarrhea given. She was worked up in the emergency room with labs revealed hyponatremia with sodium of 128 and hypokalemia with potassium of 3.2. She was admitted for dialysis needs management and nephrology was consulted to assist with this. Allergies CRAWFISH Allergy (Uncoded 06/14/21 11:42) Rash Home Medications: Apixaban [Eliquis] 1 tab PO BID 08/03/20 Rotigotine [Neupro] 6 mg TD DAILY 08/03/20 Atenolol [Tenormin] 1 tab PO DAILY 08/17/20 Carbidopa/Levodopa [Carbidopa-Levo 25-100 mg Odt] 1 tab PO TID 11/17/20 Docusate Sodium [Stool Softener] 1 tab PO DAILY 11/17/20 Melatonin 2 tab PO BEDTIME 11/17/20 Ondansetron [Ondansetron Odt] 1 tab PO TID 11/17/20 PARoxetine HCL [Paroxetine HCl] 20 mg PO DAILY 11/17/20 Pravastatin [Pravachol*] 1 tab PO DAILY 11/17/20 - Past Medical/Surgical History Diabetic: No -: HTN -: Parkinson's -: Depression -: Pseudotumor cerebri -: No evidence of sleep apnea by sleep study -: ESRD/PD -: Anemia -: Hysterectomy -: Tubal -: Breast reduction -: TOTAL KNEE REPLACEMENT Psychosocial/ Personal History: Patient lives alone but has family come to check on her frequently - Family History Father -: Hypertension, Diabetes, Stroke Mother -: Hypertension, Diabetes SISTERS -: Hypertension, Cancer Notes: PHLEBITIS, FEMALE CANCER - Social History Alcohol use: No CD- Drugs: No Caffeine use: No Review of Systems General: Weakness, Malaise Eyes: Unremarkable ENT: Unremarkable Respiratory: Unremarkable Cardiovascular: Unremarkable Gastrointestinal: Unremarkable Genitourinary: Unremarkable Musculoskeletal: Unremarkable Integumentary: Unremarkable Neurological: Unremarkable Physical Examination - Physical Exam General: Alert, Other (chronically ill looking.) HEENT: Atraumatic, Normocephalic Neck: Supple Respiratory: Normal air movement Cardiovascular: Regular rate/rhythm, Normal S1 S2 Gastrointestinal: Soft and benign Neurological: Normal speech - Studies Laboratory Data (last 24 hrs) 09/30/21 15:12: WBC 8.2 D, Hgb 8.4 L, Hct 25.8 L, Plt Count 816 H D 09/30/21 15:12: Sodium 128 L, Potassium 3.4 L, BUN 63 H, Creatinine 9.12 H* D, Glucose 91 Assessment and Plan - Plan ESRD Hypertension Hyperlipidemia Missed dialysis session Hyponatremia Hypokalemia Suspected uremia Plan: Present episode of hyponatremia and hypokalemia is perhaps related to ESRD status. Nephrology consulted for management of atrial abnormality and dialysis need. She does appear to be uremic. Nephrology to assist with dialysis needs. 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 Will continue antihypertensive medications for blood pressure management. Nephrology to assist with Epogen for anemia management. Prophylaxis: Heparin for DVT prophylaxis CODE STATUS: Full code. Disposition: We will follow closely. - Advance Directives Does patient have a Living Will: Yes Does patient have a Durable POA for Healthcare: Yes
--- NOTE | 2021-09-30 17:15 | P.CNS ---
Date of Consult: 09/30/21 Reason for Consult: ESRD, missed dialysis Requesting Physician: Mg Alex Chief Complaint: Missed dialysis session History of Present Illness: 55-year-old female with history of Parkinson's, ESRD on PD until recently when she was switched back to iHD via a TDC, hypertension with reports of possible CVA who has had recent hospitalizations and is currently in a local [place] after being transferred from a [place] facility. She has a PEG feeding tube. Her PD catheter in July was malfunctioning, it is still present. Her last HD was in [place] on the of this month, there had been some delays in getting admitted to the local [facility] clinic. She has not dialyzed in several days but despite that has no acute complaints. No reports of CP, dsypnea, abdominal pain or N/V. Allergies CRAWFISH Allergy (Uncoded 06/14/21 11:42) Rash Home Medications: Apixaban [Eliquis] 1 tab PO BID 08/03/20 Rotigotine [Neupro] 6 mg TD DAILY 08/03/20 Atenolol [Tenormin] 1 tab PO DAILY 08/17/20 Carbidopa/Levodopa [Carbidopa-Levo 25-100 mg Odt] 1 tab PO TID 11/17/20 Docusate Sodium [Stool Softener] 1 tab PO DAILY 11/17/20 Melatonin 2 tab PO BEDTIME 11/17/20 Ondansetron [Ondansetron Odt] 1 tab PO TID 11/17/20 PARoxetine HCL [Paroxetine HCl] 20 mg PO DAILY 11/17/20 Pravastatin [Pravachol*] 1 tab PO DAILY 11/17/20 - Past Medical/Surgical History Diabetic: No -: HTN -: Parkinson's -: Depression -: Pseudotumor cerebri -: No evidence of sleep apnea by sleep study -: ESRD/PD -: Anemia -: Hysterectomy -: Tubal -: Breast reduction -: TOTAL KNEE REPLACEMENT Psychosocial/ Personal History: Patient lives alone but has family come to check on her frequently - Family History Father Medical History: Hypertension, Diabetes, Stroke Mother Medical History: Hypertension, Diabetes SISTERS Medical History: Hypertension, Cancer Notes: PHLEBITIS, FEMALE CANCER - Social History Smoking Status: Unknown if ever smoked Alcohol use: No CD- Drugs: No Caffeine use: No Review of Systems General: Unremarkable Eyes: Unremarkable ENT: Unremarkable Respiratory: Unremarkable Cardiovascular: Unremarkable Gastrointestinal: Unremarkable Genitourinary: Unremarkable Musculoskeletal: Atrophy, Other (Weakness), Unremarkable Integumentary: Other (Hx of sacral pressure ulcer per family, now healing) Physical Examination General: In no apparent distress HEENT: Atraumatic, Normocephalic Neck: Other (Rt IJ TDC) Respiratory: Clear to auscultation bilaterally, Normal air movement Cardiovascular: No edema, Regular rate/rhythm Gastrointestinal: Soft and benign, Non-distended (PEG tube, PD catheter exit site with mild crusting, no drainage) Musculoskeletal: No swelling (Loss of muscle mass) Neurological: Normal speech, Normal affect (Muscle strength not tested) Laboratory Data (last 24 hrs) 09/30/21 15:12: WBC 8.2 D, Hgb 8.4 L, Hct 25.8 L, Plt Count 816 H D 09/30/21 15:12: Sodium 128 L, Potassium 3.4 L, BUN 63 H, Creatinine 9.12 H* D, Glucose 91 Conclusions/Impression: 1. ESRD, missed dialysis 2. Azotemia 3. Mild hypokalemia 4. Anemia 2nd to CKD, other 5. Weakness, unspecified -Plan for HD today for metab clearance and UF as tolerated -See HD orders for details -Pt has been converted from PD to in center iHD via TDC, did receive news late a fternoon that [facility] has now accepted pt to their facility in and pt can start their Mon -Will refer to gen surgery for routine eval of removal of the PD catheter, this can also be done as an OP -Will dose IV iron and KARLA on HD today Thank you to the hospitalist team for assistance with this pt, Ruben Roman MD, [facility]
[2021-09-30 19:55] VITALS: O2SAT 100
[2021-09-30] MEDS ORDERED: SOD FERRIC GLUC COMPLX/SUCROSE 125 MG in NA CHLORIDE 0.9% 100 ML IV ONE (20:00)
[2021-09-30] MEDS ORDERED: EPOETIN ALFA 10,000 UNIT/ML VIAL IV ONE (20:00)
[2021-09-30] MEDS ORDERED: EPOETIN ALFA-EPBX 10,000 UNIT/ML VIAL ONE (22:05)
[2021-10-01 00:48] VITALS: BMI 26.6
[2021-10-01] MEDS: INSULIN -REGULAR HUMAN 50 UNIT/0.5 ML ML SQ SCH ×5 (00:52→21:00)
[2021-10-01] MEDS: HEPARIN 5000 UNIT/ML 1 ML VIAL SQ SCH ×4 (02:01→18:02)
[2021-10-01 05:10] LABS: Hematocrit 21.8 % (36.0-45.0); Lymphocytes % 12.8 % (15.3-44.8); RBC Red Blood Cell Count 2.37 M/uL (3.86-4.86)
[2021-10-01] MEDS ORDERED: POTASSIUM 25 MEQ EFFERV TAB PO ONE (08:43)
[2021-10-01] MEDS ORDERED: NA CHLORIDE 0.9% 250 ML IV SCH (09:00)
[2021-10-01] MEDS: dexAMETHasone 4 MG TAB PO SCH (14:44)
[2021-10-01] MEDS: ACETAMINOPHEN 500 MG TAB PO PRN ×2 (14:44→23:24)
[2021-10-01] MEDS: PROMETH/COD 6.25/10MG SYRUP 5ML PO PRN ×2 (14:45→23:23)
--- NOTE | 2021-10-01 16:44 | P.PN ---
Date of Service: 10/01/21 (S) Pt seen resting comfortably, getting a blood transfusion when seen, no acute complaints, case discussed with Dr. Tian Physical Examination General: In no apparent distress HEENT: Atraumatic, Normocephalic Neck: Other (Rt IJ TDC) Respiratory: Clear to auscultation bilaterally, Normal air movement Cardiovascular: No edema, Regular rate/rhythm Gastrointestinal: Soft and benign, Non-distended (PEG tube, PD catheter exit site with mild crusting, no drainage) Musculoskeletal: No swelling (Loss of muscle mass) Neurological: Normal speech, Normal affect (Muscle strength not tested) Labs reviewed in EMR Conclusions/Impression: 1. ESRD 2. Azotemia improved 3. Mild hypokalemia 4. Anemia 2nd to CKD, chronic illnesses, other 5. Weakness, unspecified -s/p HD yesterday, metab profile stable -Next HD would be on Mon at the OP clinic and they should have an isolation shift on which she can dialyze. -Pt has been converted from PD to in center iHD via TDC -Pt can see gen surgery as an OP for removal of the PD catheter, Eliquis will need to be held beforehand -Did dose IV iron and KARLA on HD yesterday but H/H lower this AM and given Hb < 7.5, it was felt it would be safer to transfuse 1 unit PRBC prior to discharge Ruben Roman MD, [facility]
[2021-10-01] MEDS ORDERED: NEPRO 1,000 ML BOT FT SCH (19:00)
[2021-10-01 19:31] LABS: Hematocrit 26.6 % (36.0-45.0)
[2021-10-01] MEDS: CARBIDOPA/LEVODOPA 25/100 TAB FT SCH (23:24)
[2021-10-01] MEDS: APIXABAN 5 MG TABLET FT SCH (23:25)
[2021-10-02] MEDS: HEPARIN 5000 UNIT/ML 1 ML VIAL SQ SCH ×2 (00:48→09:47)
[2021-10-02] MEDS: INSULIN -REGULAR HUMAN 50 UNIT/0.5 ML ML SQ SCH ×2 (07:30→11:30)
--- NOTE | 2021-10-02 08:17 | P.PN ---
Subjective Date of Service: 10/01/21 Chief Complaint: Missed dialysis session Subjective: Improving (No new complaints diagnosed with coronavirus infection) Review of Systems General: Weakness Physical Examination - Vital Signs Temperature: 98.0 F Blood Pressure: 137/59 Pulse: 85 Respirations: 16 Pulse Ox (%): 95 - Physical Exam General: Alert, Oriented x3 Respiratory: Clear to auscultation bilaterally Assessment And Plan - Current Problems (Diagnosis) (1) Coronavirus infection Current Visit: Yes Status: Acute Plan: Patient is 56 years of age admitted feeling weak positive for coronavirus no evidence of coronavirus pneumonia feeling a little weak (2) Chronic renal failure Current Visit: Yes Status: Acute Plan: Patient was transfused 1 unit of packed red blood cells and doing much better plan for discharge in a.m. labs reviewed
[2021-10-02] MEDS: PROMETH/COD 6.25/10MG SYRUP 5ML PO PRN ×2 (08:20→15:41)
[2021-10-02] MEDS: dexAMETHasone 4 MG TAB PO SCH (08:20)
[2021-10-02] MEDS: APIXABAN 5 MG TABLET FT SCH (08:20)
[2021-10-02] MEDS: CARBIDOPA/LEVODOPA 25/100 TAB FT SCH ×2 (08:20→15:41)
--- NOTE | 2021-10-02 08:21 | P.DS ---
Admission Date: 09/30/21 Discharge Date: 10/02/21 Discharge Condition: GOOD Reason for Admission: Missed dialysis session - Problems (1) Coronavirus infection Current Visit: Yes Status: Acute (2) Chronic renal failure Current Visit: Yes Status: Acute Brief History of Present Illness: Patient is 56 years of age his dialysis was recently changed from peritoneal dialysis to hemodialysis also tested positive for coronavirus patient was also anemic Hospital Course: Admitted to the hospital seen by nephrology we will transfuse 1 unit of packed blood cells apparently she missed hemodialysis she is currently being changed from peritoneal dialysis to hemodialysis the peritoneal dialysis catheter needs to be removed as an outpatient also has a PEG tube diagnosed with coronavirus at the time of discharge alert oriented responsive cooperative vital signs all stable chest clear no new complaints satisfactory condition for discharge medications not changed Vital Signs/Physical Exam: Temp Pulse Resp BP Pulse Ox 98.0 F 85 16 137/59 L 95 10/02/21 08:17 10/02/21 08:17 10/02/21 08:17 10/02/21 08:17 10/02/21 08:17 Laboratory Data at Discharge: WBC 8.0 K/uL (4.3-10.9) 10/01/21 03:59 Hgb 8.9 g/dL (12.0-15.0) L 10/01/21 18:30 Hct 26.6 % (36.0-45.0) L D 10/01/21 18:30 Plt Count 762 K/uL (152-406) H 10/01/21 03:59 Sodium 135 mmol/L (136-145) L 10/01/21 03:59 Potassium 3.0 mmol/L (3.5-5.1) L 10/01/21 03:59 BUN 26 mg/dL (7-18) H D 10/01/21 03:59 Creatinine 4.50 mg/dL (0.55-1.3) H D 10/01/21 03:59 Glucose 75 mg/dL (74-106) 10/01/21 03:59 Home Medications: Acetaminophen [Pain Relief] 650 mg FT Q4H PRN 10/01/21 Apixaban [Eliquis *] 5 mg FT BID 10/01/21 Carbidopa/Levodopa [Carbidopa-Levodopa 25-100 Tab] 2 tab FT TID 10/01/21 Ferrous Sulfate [Ferrous Sulfate Elixir*] 300 mg FT DAILY 10/01/21 Hydralazine [Apresoline*] 100 mg FT Q8H 10/01/21 Lacosamide 1 tab FT BID 10/01/21 Levetiracetam [Roweepra] 1,000 mg FT DAILY 10/01/21 Metoprolol Tartrate 100 mg FT BID 10/01/21 Nut.tx.impaired Renal Fxn,Soy [Novasource Renal 2 Dima] 30 ml FT SEECOM 10/01/21 Pravastatin [Pravachol*] 20 mg FT BEDTIME 10/01/21 Pyridoxine HCl [Vitamin B-6] 25 mg FT DAILY 10/01/21 Rotigotine [Neupro] 1 patch TD DAILY 10/01/21 Topiramate 50 mg FT BID 10/01/21 Valproic Acid (As Sodium Salt) [Valproic Acid] 20 ml FT TID 10/01/21 Followup: Riki Decker MD [ACTIVE - CAN ADMIT] - (follow up to have old peritoneal cathater removed from ABD.) NONE,NONE [Primary Care Provider] -
[2021-10-02 15:39] VITALS: BP 156/65; TEMP 99.1
--- NOTE | 2021-10-03 13:55 | EKG ---
Test Date: 2021-09-30 Test Time: 15:31:35 Industrial Sociologist: PIA MEASUREMENT RESULTS: Intervals: Rate: 70 AR: 176 QRSD: 80 QT: 448 QTc: 483 Ewing: P: 48 AR: 176 QRS: 42 T: -7 INTERPRETIVE STATEMENTS: Normal sinus rhythm Septal infarct, age undetermined Abnormal ECG Compared to ECG 09/30/2021 14:57:08 T-wave abnormality no longer present Possible ischemia no longer present Myocardial infarct finding still present Electronically Signed On 10-03-21 13:48:44 CDT by Macario Garcia
--- NOTE | 2021-10-03 13:55 | EKG ---
Test Date: 2021-09-30 Test Time: 14:57:08 Purchasing Associate: PHYLLIS MEASUREMENT RESULTS: Intervals: Rate: 69 ID: [id number] QRSD: 86 QT: 468 QTc: 501 Liscomb: P: 21 ID: [id number] QRS: 23 T: 3 INTERPRETIVE STATEMENTS: Sinus rhythm Septal infarct, age undetermined T wave abnormality, consider inferior ischemia Abnormal ECG Compared to ECG 08/10/2021 20:51:55 T-wave abnormality now present ST (T wave) deviation no longer present Prolonged QT interval no longer present Myocardial infarct finding still present Possible ischemia still present Electronically Signed On 10-03-21 13:49:15 CDT by Macario Garcia
== END 2021-10-02 15:43 ==
LOC: ER 14:36 → ERHOLD 16:35 → 4TH 19:44
PROVIDERS: ADMIT Internal Medicine Nephrology; ATTEND Internal Medicine Sleep Medicine
DX: I12.0 Hypertensive chronic kidney disease with stage 5 chronic kidney disease or end stage renal disease (principal); N18.6 End stage renal disease; Z99.2 Dependence on renal dialysis; Z91.15 Patient's noncompliance with renal dialysis; D63.1 Anemia in chronic kidney disease; U07.1 COVID-19; E87.6 Hypokalemia; E87.1 Hypo-osmolality and hyponatremia; R53.1 Weakness; R05.9 Cough, unspecified; E78.5 Hyperlipidemia, unspecified; R79.89 Other specified abnormal findings of blood chemistry; G93.2 Benign intracranial hypertension; G20 Parkinson's disease; F32.A Depression, unspecified; Z93.1 Gastrostomy status; Z79.01 Long term (current) use of anticoagulants; Z79.899 Other long term (current) drug therapy; Z91.013 Allergy to seafood; Z90.710 Acquired absence of both cervix and uterus; Z96.659 Presence of unspecified artificial knee joint; Z82.49 Family history of ischemic heart disease and other diseases of the circulatory system; Z83.3 Family history of diabetes mellitus; Z82.3 Family history of stroke; Z80.8 Family history of malignant neoplasm of other organs or systems
CPT/HCPCS: 36415; 36430; 71045; 80048; 82947; 83880; 84484; 85014; 85018; 85025; 86850; 86900; 86901; 90935; 93005; 99284; G0378; J1644; J2250; J2916; J7050; J8540; P9016; Q5106; U0003

== ENCOUNTER 2022-02-10 15:27 | Emergency (ER) | payer OTHER ==
--- OUTSIDE RECORDS SUMMARY | 2022-02-10 15:51 | XMS REPORT | Continuity of Care Document ---
:1965 Author Organization [facility] t Address [address] [place] [address] Dr. [address]erm[address]. [address] [place] [address] Care Team Providers Name Role Phone Rey Jose WILDER Jaycob Primary Care Physician Royce Jay Anavella Attending Clinician Unava ilable [id number] Attending Clinician Unavailable RIAZ BAIG Attending Clinician Unavailable JOSE MAGALLANES Attending Clinician Unavailable Jose Rey Attending Clinician Unavailable ISAAC MEEHAN Attending Clinician Unavailable CHARLES TORRES Attending Clinician Unavailable Gallito Forte MD Attending Clinician [phone] Priti Short Attending Clinician Unavailable Mitra Gustafson V Attending Clinician Unavailable CHITO_SARAH_Wyatt_Ricky Attending Clinician Unavailable Estelle Schneider Attending Clinician [phone] Sergio Fuentes Attending Clinician [phone] ARUN SUERO Attending Clinician Unavailable RAMIN DE LEON Attending Clinician Unavailable BRETT SHAH Attending Clinician Unavailable Ramin De Leon MD Attending Clinician Unavailable Elmer Acevedo MD, Vangie Aldridge Attending Clinici an Ilya MCKEON, Wilmer Kothari Attending Clinician [phone] Deja MCKEON, Irlanda Mayen Attending Clinician [phone] Kellie MCKEON, [place] Attending Clinician Pablo MCKEON, Brett Shay Attending Clinician [phone] Raul MCKEON, Wendy David Attending Clinician [phone] Juan Carlos MCKEON, Kiarra Attending Clinician Meet ALEXIS, Chen Neves Attending Clinician Adalgisa MCKEON, Dl Attending Clinician Nancy MCKEON, Jacques Maradiaga Attending Clinician Marilu ALEXIS, Bronson Yu Attending Clinician [phone] Zoran MCKEON, Isaac Staples Attending Clinician Eyal OCHOA, Angel Attending Clinician Unavailable Jessa OCHOA, Heather Attending Clinician Unavailable Chrissie Spence RN Attending Clinician Unavailable Dianelys Mitchell RN Attending Clinician Unavailable SAJI WOOD Attending Clinician Unavailable Doctor Unassigned, [place] Attending Clinician Unavailable Brown Lees MD Attending Clinician Daiana Osullivan MD Attending Clinician NICOL GALAN Attending Clinician Unavailable RANDOLPH NOGEUIRA Attending Clinician Unavailable MATHEW CRUM Attending Clinician Unavailable Trish Jay Anav Admitting Clinician Unavailable [id number] Admitting Clinician Unavailable RIAZ BAIG Admitting Clinician Unavailable ISAAC MEEHAN Admitting Clinician Unavailable Priti Short Admitting Clinician Unavailable _[facility]_Wyatt_Ricky Admitting Clinician Unavailable RAMIN DE LEON Admitting Clinician Unavailable LOBO LIANG Admitting Clinician Unavailable AHSAN VARGAS Admitting Clinician Unavailable RANDOLPH NOGUEIRA Admitting Clinician Unavailable Payers Payer Name Policy Type Policy Number Effective Date Expiration Date Ari felix [facility] [employer] [id number] 2021 00:00:00 [facility] [id number] [id number] 2021 00:00:00 MEDICAID [facility] [id number] 2017 2017 00:00:00 00:00:00 [facility] [id number] OPTUM UNITED ONLY [id number] 2017 MCR REPL 00:00:00 [employer] - [id number] [facility] (MEDICARE REPLACEMENT/ADVAN TAGE - PPO) [place] [id number] [place] [address] [id number] 2018 [employer] 00:00:00 [facility] Problems Condition Condition Condition Status Onset Resolution Last Treating Co mments Source Name Details Category Date Date Treatment Clinician Date Type II Type II Problem Active [facility] diabetes Diabetes 8-18 Medica l mellitus Mellitus 00:00: in in 00 remission Remission Seizure Seizure Problem Active [facility] disorder Disorder 8-15 Medica l 00:00: 00 Multiple Multiple Problem Active [facility] complicati Complicati 8-04 Me dical ons due to ons Due to 00:00: type 2 Type 2 00 diabetes Diabetes mellitus Mellitus Speech Speech Problem Active [facility] problem Problem 7-28 Medical 00:00: 00 Hyperlipid Hyperlipid Problem Active P [facility] emia emia 7- Medical 00:00: 00 Hypercoagu Hypercoagu Problem Active [facility] lability lability 727 Medica l state State 00:00: 00 Hypertensi Hypertensi Problem Active [facility] ve heart ve Heart 7 Medica l and renal and Renal 00:00: disease Disease 00 with renal with Renal failure Failure 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[facility]ep via hyperparat Hyperparat 7 Me dical hyroidism hyroidism 00:00: 00 Abnormal Abnormal Problem Active [facility] a weight Weight 727 Medical loss Loss 00:00: 00 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 Deficiency 00:00: disorder Disorder 00 Parkinsoni Parkinsoni Problem Active [facility] sm sm 10-11 Medical 00:00: 00 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:00: epilepticu Epilepticu 00 s s Inadequate Inadequate Problem Active [facility] oral Oral 10-11 Medical intake Intake 00:00: 00 Physical Physical Problem Active [facility] a deconditio Deconditio 10-11 Me dical bella bella 00:00: 00 Thrombosis Thrombosis Problem Active [facility] of of 10-11 Medical internal Internal 00:00: jugular Jugular 00 vein Vein Peripheral Peripheral Problem Active [facility] angiopathy Angiopathy 10-11 Me dical due to Due to 00:00: diabetes Diabetes 00 mellitus Mellitus Anxiety Anxiety Problem Active [facility] 7 Medical 00:00: 00 Clostridio Clostridio Disease Active [facility] ides ides 6-06 [facility] difficile difficile 00:00: [facility] kurt diarrhea diarrhea 00 Center Respirator Respirator Disease Active [facility] y failure y failure 5-30 Luke s with with 00:00: Medical hypoxia hypoxia 00 Center and and hypercapni hypercapni a a Hypotensio Hypotensio Disease Active [facility] n n 5-28 [facility] 00:[facility]: Medical 00 Center Status Status Disease Active [facility] epilepticu epilepticu 5-27 Poly kes s s 00:00: Medical 00 Center Syncope Syncope Disease Active [facility]19 [facility] 00:00: Medical 00 Ardara Nausea and Nausea and Disease Active U T vomiting vomiting 5-10 Health 00:00: 00 Oropharyng Oropharyng Disease Active [facility] T eal eal 2-01 Health dysphagia dysphagia 00:00: 00 Dysphagia Dysphagia Disease Active [facility] 00:00: Medical 00 Center Parkinson' Parkinson' Disease Active [facility] s disease s disease 5-15 Luke s 00:00: Medical 00 Center Peritoneal Peritoneal Disease Active [facility] dialysis dialysis 5-14 [facility] catheter catheter 00:00: Medica l dysfunctio dysfunctio 00 Ce nter n, initial n, initial encounter encounter Obesity Obesity Disease Active Last [facility]11 [facility] 00:00: t & Plan: Medical [facility] g of this note might be different from the original. Current BMI is 34.9 which is acceptabl e for transplan t. We encourage d her to continue to increase physical activity as tolerated to aid with weight loss. Basal Basal Disease Active Last [facility] ganglia ganglia 8-11 [facility] degenerati degenerati 00:00: t & Plan: Medical on on [facility] g of this note might be different from the original. She requires the use of a cane due [...] [facility] (diabetes (diabetes 8-11 Assessmen L ukes mellitus) mellitus) 00:00: t & Plan: M edical 00 [facility] g of this note might be different from the original. She will require strict blood glucose control . Other Other Disease Active [facility] specified specified 12-13 Ru[facility] ege personal personal 00:00: of risk risk 00 Medicin factors, factors, e not not elsewhere elsewhere classified classified Dysphasia Dysphasia Disease Active [facility] following following 12-02 Ruiz ege unspecifie unspecifie [...] (HCCode) (HCCode) Cerebrovas Cerebrovas Disease Active B valeria cular cular 12-02 College accident accident 00:00: of (CVA) (CVA) 00 Medicin (HCCode) (HCCode) e Cerebral Cerebral Disease Active [facility] atheroscle atheroscle 11-28 [employer] llege rosis rosis 00:00: of 00 Medicin e Localized Localized Disease Active [facility] nino edema due edema due 11-28 [facility] ege to fluid to fluid 00:00: of overload overload 00 Medici n e Acute Acute Disease Active [facility] encephalop encephalop 8-05 Poly kes athy athy 00:00: Medical 00 Center TIA TIA Disease Active [facility] (transient (transient 5-27 Poly kes ischemic ischemic 00:00: Medica l attack) attack) 00 Center Slurred Slurred Disease Active [facility] speech speech 5- [facility] 00:00: Medical 00 Center Pre-transp Pre-transp Disease Active 2017-[address] lant lant 0-[facility] evaluation 00:00: t & Plan: Medical for for 00 [facility] chronic chronic g of this kidney kidney note disease disease might be different from the original. She is an acceptabl e candidate for kidney transplan t pending further testing and formal review at [facility]. ESRD (end ESRD (end Disease Active 2017-[address] stage stage 0-23 [facility] renal renal 00:00: t & Plan: Medical disease) disease) 00 [facility] ter on on g of this dialysis dialysis note might be different from the original. 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 She has been on dialysis since 2017. She does have a potential donor at this time. Malfunctio Malfunctio Disease Active 2016-03 Overview : [facility] n of n of 1-07 Added [place]osey arterioven arterioven 00:00: automatic of ous graft ous graft 00 ally from Mikey miles ([facility] request e for surgery [id number] Morbid Morbid Disease Active 2016-03 [facility] obesity obesity 0-16 [place] with body with body 00:00: of mass index mass index 00 Me dicin of of e 40.0-49.9 40.0-49.9 [facility] Thrombosis Thrombosis Disease Active 2016-03 Overview : [facility] of kidney of kidney 0-13 Added ity of dialysis dialysis 00:00: automatic Red as arterioven arterioven 00 ally from Medical ous graft, ous graft, request B prakash initial initial for encounter encounter surgery [id number] CKD CKD Disease Active [facility] (chronic (chronic 07-18 Health kidney kidney 00:00: disease) disease) 00 Major Major Disease Active [facility] depressive depressive 11-20 He alth disorder, disorder, 00:00: recurrent recurrent 00 episode, episode, unspecifie unspecifie d d Localized Localized Disease Active 2009-03 [facility] ris osteoarthr osteoarthr 05-01 He alth osis not osis not 00:00: specified specified 00 whether whether primary or primary or secondary, secondary, pelvic pelvic region and region and thigh thigh Localized Localized Disease Active [facility] ris osteoarthr osteoarthr 11-01 He alth osis not osis not 00:00: specified specified 00 whether whether primary or primary or secondary, secondary, lower leg lower leg 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 09-14 Health 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 Routine Routine Disease Active Timmy gynecologi gynecologi 6 He alth kurt kurt 00:00: examinatio examinatio 00 n n Type II or Type II or Disease Active H arris unspecifie unspecifie 06-28 He alth d type d type 00:00: diabetes diabetes 00 mellitus mellitus without without mention of mention of complicati complicati on, on, uncontroll uncontroll ed ed Pain in Pain in Disease Active Timmy joint, joint, 06-28 Health lower leg lower leg 00:00: 00 Pseudotumo Pseudotumo Disease Active H arris r [...] l) l) 00 insufficie insufficie ncy ncy Screening Screening Disease Active Lionel ris 405 Health 00:00: 00 Allergic Allergic Disease Active Clara crockett rhinitis, rhinitis, 05 Heal th cause cause 00:00: unspecifie unspecifie 00 d d Lumbago Lumbago Disease Active [facility] 405 Health 00:00: 00 Depression Depression Disease Active H arris 323 Health 00:00: 00 Anemia in Anemia in Problem Active Zeynep via chronic Chronic Medical kidney Kidney disease Disease 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 [id number] History of Problem Active Co mmon CVA with Spirit residual - CHI deficit [facility] [id number] Anemia of Problem Active Com mon chronic Spirit disease [facility] [id number] Left-sided Problem Active Co mmon weakness Spirit [facility] [id number] End stage Problem Active Comm on renal Spirit disease [facility] [id number] Mixed Problem Active Common hyperlipid Spirit emia [facility] [id number] Depression Problem Active Co mmon with Spirit anxiety [facility] Allergies, Adverse Reactions, Alerts Allergy Allergy Status Severity Reaction(s) Onset Inactive Treating Comm ents Source Name Type Date Date Clinician CRAYFISH Allergy Active High Anaphylaxis SL EH 08-06 00:00: 00 SHELLFIS Allergy Active Med Itching [facility] H - CONTAINI 00:00: NG 00 PRODUCTS Crayfish Propensi Active Anaphylaxis [facility] ty to 08-06 [facility] adverse 00:00: Medical reaction 00 Center s Shellfis Propensi Active Itching [facility] h ty to 08-06 [facility] Containi adverse 00:00: Medical ng reaction 00 Center Products s Shellfis Propensi Active Hives 2018-03 Only [facility] h-Derive ty to 03-29 crawfish [facility] e d adverse 00:00: per of Products reaction 00 patient. Medi leticia s to e drug Shellfis Propensi Active Hives 2018-03 Only [facility] h-Derive ty to 03-29 crawfish Health d adverse 00:00: per Products reaction 00 patient. s Shellfis Propensi Active Hives 2018-03 Only Univer s h ty to 03-29 crawfish ity of Derived adverse 00:00: per [place] reaction 00 patient. Medica l s Branch 0 Drug Active Unknown Common allergy Spirit - [facility] NO KNOWN Allergy Active [facility] ALLERGIE S Family History Family Member Diagnosis Comments Start Date Stop Date Source Natural father Diabetes [facility] Natural father Hypertension [facility] Natural father Stroke [facility] Natural mother Arthritis [facility] Natural mother Diabetes [facility] Natural mother Hypertension [facility] Natural sister Cancer [facility] Natural sister Hypertension [facility] Natural sister Clotting disorder [facility] Social History Social Habit Start Date Stop Date Quantity Comments Source History [facility] Alcohol Frequency Medical Center History [facility] Alcohol Std Drinks Medica Center History [facility] Alcohol Binge [facility] ter History of Tobacco Common Spirit - Use [facility] Exposure to 2022-01-21 2022-01-31 Not sure [facility] SARS-CoV-2 (event) 00:00:00 10:24:00 Alcohol intake 2021-09-12 2021-09-12 Current [facility] 00:00:00 00:00:00 non-drinker of Medical Ce nter alcohol (finding) History [facility] 2021-09-03 2021-09-03 [address] [facility] [address] [employer] Unable to 00:00:00 00:00:00 Medical Center Pay History [facility] 2021-08-11 2021-08-11 [address] [facility] [address] [employer] Places 00:00:00 00:00:00 Medical Ce nter Lived History [facility] 2021-08-11 2021-08-11 [address] [facility] [address] [employer] Homeless 00:00:00 00:00:00 Medical Center Last Year History [facility] 2019-11-04 2019-11-04 social CLAYTON Hsieh Alcohol Comment 00:00:00 00:00:00 Medical C enter Tobacco use and 2017-12-14 2017-12-14 Never used CLAYTON Muir exposure 00:00:00 00:00:00 Medical Center Sex [birth year] At [birth year] CLAYTON Muir 00:00:00 00:00:00 Medical Center Smoking Status Start Date Stop Date Source Tobacco smoking consumption unknown [facility] Never smoked tobacco [facility] Medications Ordered Filled Start Stop Current Ordering Indication Dosage Frequency Signature Comments Components Source Medication Medication Date Date Medication? Clinician (SIG) Name Name cholecalcif 2021-03 Yes 5000U QD Take 5,000 UT qian (D3-5) -08 Units by [facility] 5,000 Units 10:40: mouth 1 tablet 44 (one) time each day. midodrine 2021-03 Yes Take 2 UT (Proamatine -08 tablets [facility] ) 5 MG 10:40: twice tablet 44 daily lacosamide 2021-03 Yes [id number] TAKE 1 U T (Vimpat) -08 TABLET BY [facility] 200 mg 00:00: MOUTH ON tablet 00 SUNDAY, tablet SUNDAY AND FRIDAYStre ngth: 200 mg levETIRAcet 2021-03 Yes [id number] TAKE ONE UT am (Keppra) 1-08 TABLET BY [facility] 500 MG 00:00: MOUTH tablet 00 THREE TIMES A WEEK (SUNDAY, SUNDAY, AND SUNDAY)Str ength: 500 mg carbidopa-l 2021-03- Yes [id number] 2{tbl} Q.5D Take 2 UT evodopa 04-02-08 tablets by [facility] (Sinemet) 00:00: 04:59 mouth in 25-100 MG 00 :00 the tablet morning and 2 tablets in the evening. rotigotine 2021-03- Yes [id number] 1{patch QD Place 1 UT (Neupro) 6 04-02-08 } patch on Heal th MG/24HR 00:00: 04:59 the skin 1 00 :00 (one) time each day. topiramate 2021-03- Yes [id number] 50mg Q.5D Take 1 UT 50 MG 04-02- tablet (50 Health tablet 00:00: 04:59 mg total) 00 :00 by mouth in the morning and 1 tablet (50 mg total) in the evening. topiramate 2021-03- No UT 50 MG 1-06 11-08 Health tablet 00:00: 00:00 00 :00 levETIRAcet 2021-03- No TAKE ONE U T am (Keppra) 0-30 -08 TABLET BY [facility] 500 MG 00:00: 00:00 MOUTH tablet 00 :00 THREE TIMES A WEEK (SUNDAY, SUNDAY, AND SUNDAY) lacosamide 2021-03- No TAKE 1 UT (Vimpat) 0-05 - TABLET BY Healt 200 mg 00:00: 00:00 MOUTH ON tablet 00 :00 SUNDAY, tablet SUNDAY AND SUNDAY metoprolol 2021-03 Yes TAKE 2 UT tartrate 0-04 TABLETS BY Healt h (Lopressor) 00:00: MOUTH 50 MG 00 TWICE tablet DAILY - HOLD SBP LESS THAN 100 , HEART RATE LESS THAN 60 traZODone 2021-03 Yes TAKE 1/2 UT (Desyrel) 0-04 (ONE-HALF) Heal th 50 MG 00:00: TABLET BY tablet 00 MOUTH EVERY DAY AT BEDTIME clonazePAM Yes .5mg Take 0.5 UT (KlonoPIN) 9-07 mg by Health 0.5 MG 00:00: mouth tablet 00 every night. TAKE 1 TABLET BY MOUTH ONCE DAILY AT NIGHT lacosamide 0 Yes 200mg Take [address] [facility] 200 mg Tab 7-04 tablet [facility] 00:00: (200 mg Medical 00 total) by Center mouth 3 (three) times a week after dialysis SUN/SUN/ I. Max Daily Amount: 200 mg levETIRAcet Yes 500mg Take [address] am (KEPPRA) 7-04 (500 mg [facility] 500 mg/5 mL 00:00: total) by Mikey mendoza (5 mL) Solchaz 00 mouth 3 Cente r oral (three) solution times a week after dialysis SUN/ I. topiramate 0 2022- No 50mg Take [address] (TOPAMAX) 7-04 07-04 tablet (50 Virgie es 50 MG 00:00: 23:59 mg total) Medica l tablet 00 :00 by mouth 3 Center (three) times a week after dialysis SUN/SUN/ I. pyridoxine, No 25mg QD Take [address] vitamin B6, 09-25 tablet (25 L ukes (B-6) 25 MG 00:00: 23:59 mg total) Medical tablet 00 :00 by mouth Center daily. levETIRAcet 2021- No 1000mg QD Take [address] am (KEPPRA) 09-25 10- mLs (1,000 L ukes 500 mg/5 mL 00:00: 23:59 mg total) Medical (5 mL) Soln 00 :00 by mouth Cent er oral daily for solution 90 days. pravastatin Yes 20mg QD Take [address] [facility] (PRAVACHOL) 09-24 by mouth Luke s 20 MG 16:12: daily. Medical tablet 11 Center carbidopa-l Yes 2{tbl} Q.[id number] Take [address] evodopa 09-24 [id number] tablets by [facility] (SINEMET) 16:12: 3D mouth 3 Medic al 25-100 mg 11 (three) Center per tablet times daily. rotigotine Yes 1{patch QD Place [address] (NEUPRO) 6 09-24 } patch onto Virgie es mg/24 hour 16:12: the skin Med ical 11 daily. Center ascorbic 2021- No 500mg QD Take [address] acid, 09-24 mg by [facility] vitamin C, 11:43: 00:00 mouth Medic al (ASCORBIC 48 :00 daily. Center ACID WITH SKYLAR HIPS) 500 MG tablet melatonin/p 2021- No 10mg QD Take [address] yridoxine 09-24 by mouth [facility] (MELATONIN, 11:43: 00:00 every Medi kurt WITH B6, 48 :00 evening. Center ORAL) apixaban Yes 5mg Q.5D Take [address] (ELIQUIS) 5 - tablet (5 Virgie es mg Tab 00:00: mg total) Medica l tablet 00 by mouth 2 Center (two) times daily. lacosamide Yes 200mg Q.5D Take [address] 200 mg Tab 09-24 tablet [facility] 00:00: (200 mg Medical 00 total) by Center mouth 2 (two) times daily. Max Daily Amount: 400 mg hydrALAZINE 2022- No 100mg Take [address] (APRESOLINE 09-24 tablet [facility] ) 100 MG 00:00: 23:59 (100 mg Medic al tablet 00 :00 total) by Center mouth every 8 (eight) hours. metoprolol 2022- No 100mg Q.5D Take [address] tartrate 09-24 tablet [facility] (LOPRESSOR) 00:00: 23:59 (100 mg Me dical 100 MG 00 :00 total) by Center tablet mouth 2 (two) times daily. NIFEdipine 2022- No 60mg Q.5D Take [address] (PROCARDIA- 09-24 tablet (60 L ukes XL) 60 MG 00:00: 23:59 mg total) Me dical (OSM) 24 hr 00 :00 by mouth 2 Ce nter tablet (two) times daily. topiramate 2022- No 50mg Take [address] (TOPAMAX) 09-24 tablet (50 Virgie es 50 MG 00:00: 23:59 mg total) Medica l tablet 00 :00 by mouth Center every 12 (twelve) hours. clonazePAM 2021- No .5mg QD Take [address] (KlonoPIN) 09-24 tablet [facility] 0.5 MG 00:00: 23:59 (0.5 mg Medical tablet 00 :00 total) by Center mouth nightly for 30 days. Max Daily Amount: 0.5 mg valproic 2021- No 1000mg Take [address] acid, as 09-24- mLs (1,000 Luke s sodium 00:00: 23:59 mg total) Medic al salt, 00 :00 by mouth Center (DEPAKENE) every 8 250 mg/5 mL (eight) (5 mL) hours for solution 30 days. epoetin Yes anemia [id number] Inject [address] pb 5-28 mL (10,000 [facility] (EPOGEN,PRO 00:00: Units Medic al CRIT) 00 total) Center 10,000 subcutaneo unit/mL usly 3 injection (three) times a week at bedtime TUE/BACILIO/SA T. levETIRAcet 0 Yes 1000mg Q24H Inject [facility] am (KEPPRA) 5-28 1,000 mg Luke s IVPB 00:00: intravenou Medical 00 sly daily. Center epoetin 0 Yes anemia [id number] Inject [address] pb 5-28 mL (10,000 [facility] (EPOGEN,PRO 00:00: Units Medic al CRIT) 00 total) Center 10,000 subcutaneo unit/mL usly 3 injection (three) times a week at bedtime TUE/BACILIO/SA T. levETIRAcet Yes 1000mg Q24H Inject [facility] am (KEPPRA) 5-28 1,000 mg Luke s IVPB 00:00: intravenou Medical 00 sly daily. Center epoetin Yes anemia [id number] Inject [address] pb 5-28 mL (10,000 [facility] (EPOGEN,PRO 00:00: Units Medic al CRIT) 00 total) Center 10,000 subcutaneo unit/mL usly 3 injection (three) times a week at bedtime TUE/BACILIO/SA T. ergocalcife 2021-0 3- No [id number] Q7D Take [address] rol 5-28 05-28 capsule [facility] (ERGOCALCIF 00:00: 23:59 (50,000 Me dical QIAN) 1,250 00 :00 Units Center mcg (50,000 total) by unit) mouth once capsule a week. ergocalcife 2-0 2023- No [id number] Q7D Take [address] rol 5-28 05-28 capsule [facility] (ERGOCALCIF 00:00: 23:59 (50,000 Me dical QIAN) 1,250 00 :00 Units Center mcg (50,000 total) by unit) mouth once capsule a week. ergocalcife 2022-0 2023- No [id number] Q7D Take [address] rol 5-28 05-28 capsule [facility] (ERGOCALCIF 00:00: 23:59 (50,000 Me dical QIAN) 1,250 00 :00 Units Center mcg (50,000 total) by unit) mouth once capsule a week. levETIRAcet 1000mg Q24H Inject [facility] am (KEPPRA) 08-20 1,000 mg Virgie es IVPB 00:00: 00:00 intravenou Medica l 00 :00 sly daily. Ardara pravastatin Yes 20mg QD Take [address] (PRAVACHOL) 5-27 by mouth Luke s 20 MG 13:34: daily. Medical tablet 05 [facility] ascorbic Yes 500mg QD Take [address] acid, 5-27 mg by [facility] vitamin C, 13:34: mouth Medica l (ASCORBIC 05 daily. Ardara ACID WITH SKYLAR HIPS) 500 MG tablet carbidopa-l Yes 2{tbl} Q.[id number] Take [address] evodopa 5-27 [id number] tablets by [facility] (SINEMET) 13:34: 3D mouth 3 Medic al 25-100 mg 05 (three) Center per tablet times daily. rotigotine Yes 1{patch QD Place [address] (NEUPRO) 6 5-27 } patch onto Virgie es mg/24 hour 13:34: the skin Med ical 05 daily. [place] pravastatin Yes 20mg QD Take [address] [facility] (PRAVACHOL) 5-27 by mouth [facility] 20 MG 13:34: daily. Medical tablet 05 [place] ascorbic Yes 500mg QD Take [address] [facility] acid, 5-27 mg by [facility] vitamin C, 13:34: mouth Medica l (ASCORBIC 05 daily. [place] ACID WITH SKYLAR HIPS) 500 MG tablet carbidopa-l Yes 2{tbl} [id number] Take [address] [facility] evodopa 5-27 [id number] tablets by [facility] (SINEMET) 13:34: 3D mouth 3 Medic al 25-100 mg 05 (three) Center per tablet times daily. rotigotine Yes 1{patch QD Place [address] [facility] (NEUPRO) 6 5-27 } patch onto [facility] mg/24 hour 13:34: the skin Med ical 05 daily. [place] melatonin/p 2021-0 Yes 10mg QD Take [address] [facility] yridoxine 5-27 by mouth [facility] (MELATONIN, 13:25: every Medic al WITH B6, 50 evening. Center ORAL) melatonin/p 2021-0 Yes 10mg QD Take [address] [facility] yridoxine 5-27 by mouth [facility] (MELATONIN, 13:25: every Medic al WITH B6, 50 evening. Center ORAL) cholecalcif 2021-0 2021- No 5000U QD Take 5,[address] [facility] qian, 5-27 05-27 Units by [facility] vitamin D3, 10:39: 00:00 mouth Medi kurt 5,000 unit 22 :00 daily. Center Tab midodrine 2021-2021- No 5mg Q.5D Take [address] [facility] (PROAMATINE 5-27 05-27 by mouth 2 [facility] ) 5 MG 10:39: 00:00 (two) Medical tablet 22 :00 times Center daily. potassium 2021-0 2021- No 20meq Q.5D Take [address] [facility] chloride 5-27 05-27 mEq by [facility] (KLOR-CON) 10:39: 00:00 mouth 2 Med ical 20 mEq 22 :00 (two) Center packet times daily. Missing or 2021-2021- No 2400mg Take 2,[address] [facility] Non-Formula 5-27 05-27 mg by [facility] ry 10:39: 00:00 mouth 3 Medical Medication 22 :00 (three) Center times daily as needed Sevelamer Powder 2400 mg orally 3 times a day as needed with meals. (Patient takes sevelamer powder due to she is unable to swallow the pills) . cholecalcif 2021-0 2021- No 5000U QD Take 5,[address] [facility] qian, 5-27 05-27 Units by [facility] vitamin D3, 10:39: 00:00 mouth Medi kurt 5,000 unit 22 :00 daily. Center Tab midodrine 2021-0 2021- No 5mg Q.5D Take [address] [facility] (PROAMATINE 5-27 05-27 by mouth 2 [facility] ) 5 MG 10:39: 00:00 (two) Medical tablet 22 :00 times Center daily. potassium 2021-0 2021- No 20meq Q.5D Take [address] [facility] chloride 5-27 05-27 mEq by [facility] (KLOR-CON) 10:39: 00:00 mouth 2 Med ical 20 mEq 22 :00 (two) Center packet times daily. Missing or 2021-2021- No 2400mg Take 2,[address] [facility] Non-Formula 5-27 05-27 mg by [facility] ry 10:39: 00:00 mouth 3 Medical Medication 22 :00 (three) Center times daily as needed Sevelamer Powder 2400 mg orally 3 times a day as needed with meals. (Patient takes sevelamer powder due to she is unable to swallow the pills) . cholecalcif 2021- No 5000U QD Take 5,[address] [facility] qian, 5-27 05-27 Units by [facility] vitamin D3, 10:39: 00:00 mouth Medi kurt 5,000 unit 22 :00 daily. Center Tab midodrine 2021- No 5mg Q.5D Take [address] [facility] (PROAMATINE 5-27 05-27 by mouth 2 [facility] ) 5 MG 10:39: 00:00 (two) Medical tablet 22 :00 times Center daily. potassium 2021- No 20meq Q.5D Take [address] [facility] chloride 5-27 05-27 mEq by [facility] (KLOR-CON) 10:39: 00:00 mouth 2 Med ical 20 mEq 22 :00 (two) Center packet times daily. Missing or 2021- No 2400mg Take 2,[address] [facility] Non-Formula 5-27 05-27 mg by [facility] ry 10:39: 00:00 mouth 3 Medical Medication 22 :00 (three) Center times daily as needed Sevelamer Powder 2400 mg orally 3 times a day as needed with meals. (Patient takes sevelamer powder due to she is unable to swallow the pills) . acyclovir 0 Yes 790mg Inject [address] [facility] (ZOVIRAX) 5-27 mg [facility] IVPB in 150 00:00: intravenou Medical mL 00 sly every Center 8 (eight) hours. cefTRIAXone 2021-0 Yes 2g Q24H Inject [address] [facility] (ROCEPHIN) 5-27 intravenou [facility] 2 g in 00:00: sly daily. Medic al sodium 00 Center chloride 0.9 % (NS) 100 mL (V2B) IVPB dextrose 50 Yes 12.5g Inject [address] [facility] % in water 5-27 mLs (12.5 [facility] (dextrose 00:00: g total) Medi kurt 50%, D50W,) 00 intravenou Ce nter Syrg sly as injection needed (blood sugar less than 70 and patient unable to take PO juice or soda). glucagon 1 Yes 1mg Inject [address] [facility] mg/mL SolR 5-27 mL (1 mg [facility] injection 00:00: total) Medica l 00 intramuscu Center larly as needed (blood sugar less than 70, patient unable to take PO, AND unable to give D50W due to lack of IV access). heparin Yes 5000U Inject 1 [facility] injection 5-27 mL (5,000 [facility] 5,000 00:00: Units Medical units/mL 00 total) Center subcutaneo usly every 12 (twelve) hours. hydrALAZINE Yes 10mg Inject 0.[address] [facility] (APRESOLINE 5-27 mLs (10 mg Poly kes ) 20 mg/mL 00:00: total) Medic al injection 00 intravenou Cent er sly every 4 (four) hours as needed. lacosamide Yes 100mg Inject [address] [facility] (VIMPAT) 5-27 mg [facility] IVPB 00:00: intravenou Medical 00 sly every Center 12 (twelve) hours. Max Daily Amount: 200 mg metroNIDAZO Yes 500mg Take [address] [facility] LE (FLAGYL) 5-27 tablet [facility] 500 MG 00:00: (500 mg Medical tablet 00 total) by Center mouth every 8 (eight) hours. ondansetron Yes 4mg Inject [address] [facility] [address] [facility] (ZOFRAN) 4 5-27 mLs (4 mg [facility] mg/2 mL 00:00: total) Medical injection 00 intravenou Cent er sly every 4 (four) hours as needed. pantoprazol Yes 40mg QD Inject [address] e 5-27 mg [facility] (PROTONIX) 00:00: intravenou M edical injection 00 sly daily. Cent er 40 mg propofoL Yes 0ug/min Inject [facility] (DIPRIVAN) 5-27 0-5,516 [facility] 10 mg/mL 00:00: mcg/min Medica l injection 00 intravenou Cent er sly continuous . white Yes 1{appli QD Place [address] [facility] petrolatum- 5-27 cation} applicatio [facility] mineral oiL 00:00: n into Medi kurt 80-20 % 00 both eyes Center Oint nightly. acyclovir Yes 790mg Inject [address] (ZOVIRAX) 5-27 mg [facility] IVPB in 150 00:00: intravenou Medical mL 00 sly every Center 8 (eight) hours. cefTRIAXone Yes 2g Q24H Inject [address] [facility] (ROCEPHIN) 5-27 intravenou [facility] 2 g in 00:00: sly daily. Medic al sodium 00 Center chloride 0.9 % (NS) 100 mL (V2B) IVPB dextrose 50 Yes 12.5g Inject [address] [facility] % in water 5-27 mLs (12.5 [facility] (dextrose 00:00: g total) Medi kurt 50%, D50W,) 00 intravenou Ce nter Syrg sly as injection needed (blood sugar less than 70 and patient unable to take PO juice or soda). glucagon 1 Yes 1mg Inject [address] [facility] mg/mL SolR 5-27 mL (1 mg [facility] injection 00:00: total) Medica l 00 intramuscu Center larly as needed (blood sugar less than 70, patient unable to take PO, AND unable to give D50W due to lack of IV access). heparin Yes 5000U Inject 1 [facility] injection 5-27 mL (5,000 [facility] 5,000 00:00: Units Medical units/mL 00 total) Center subcutaneo usly every 12 (twelve) hours. hydrALAZINE Yes 10mg Inject 0.[address] [facility] (APRESOLINE 5-27 mLs (10 mg Poly kes ) 20 mg/mL 00:00: total) Medic al injection 00 intravenou Cent er sly every 4 (four) hours as needed. lacosamide Yes 100mg Inject [address] [facility] (VIMPAT) 5-27 mg [facility] IVPB 00:00: intravenou Medical 00 sly every Center 12 (twelve) hours. Max Daily Amount: 200 mg metroNIDAZO Yes 500mg Take [address] [facility] LE (FLAGYL) 5-27 tablet [facility] 500 MG 00:00: (500 mg Medical tablet 00 total) by Center mouth every 8 (eight) hours. ondansetron Yes 4mg Inject [address] [facility] [address] [facility] (ZOFRAN) 4 5-27 mLs (4 mg [facility] mg/2 mL 00:00: total) Medical injection 00 intravenou Cent er sly every 4 (four) hours as needed. pantoprazol Yes 40mg QD Inject [address] e 5-27 mg [facility] (PROTONIX) 00:00: intravenou M edical injection 00 sly daily. Cent er 40 mg propofoL Yes 0ug/min Inject [facility] (DIPRIVAN) 5-27 0-5,516 [facility] 10 mg/mL 00:00: mcg/min Medica l injection 00 intravenou Cent er sly continuous . white Yes 1{appli QD Place [address] [facility] petrolatum- 5-27 cation} applicatio [facility] mineral oiL 00:00: n into Medi kurt 80-20 % 00 both eyes Center Oint nightly. ferrous 2022- No 300mg QD 5 mLs ([address] [facility] [address] [facility] sulfate 300 5-27 05-27 mg total) Poly kes mg (60 mg 00:00: 23:59 by G-tube Me dical iron)/5 mL 00 :00 route Center syrup daily. gentamicin 2022- No 1{appli Apply [address] [facility] (GARAMYCIN) 5-27 05-27 cation} applicatio [facility] 0.1 % cream 00:00: 23:59 n Medic al 00 :00 topically Center as needed (PERITONEA L DIALYSIS). insulin 0 2022- No 0U Inject 0-[address] [facility] lispro 5-27 05-27 Units [facility] (HumaLOG) 00:00: 23:59 subcutaneo M edical 100 unit/mL 00 :00 usly 3 Center injection (three) times daily before meals. ferrous 2022- No 300mg QD 5 mLs ([address] [facility] sulfate 300 5-27 05-27 mg total) Poly kes mg (60 mg 00:00: 23:59 by G-tube Me dical iron)/5 mL 00 :00 route Center syrup daily. gentamicin 2022- No 1{appli Apply [address] [facility] (GARAMYCIN) - 05-27 cation} applicatio [facility] 0.1 % cream 00:00: 23:59 n Medic al 00 :00 topically Center as needed (PERITONEA L DIALYSIS). insulin 2022- No 0U Inject 0-[address] [facility] lispro 5-27 05-27 Units [facility] (HumaLOG) 00:00: 23:59 subcutaneo M edical 100 unit/mL 00 :00 usly 3 Center injection (three) times daily before meals. ferrous 2022- No 300mg QD 5 mLs ([address] sulfate 300 5-27 05-27 mg total) Poly kes mg (60 mg 00:00: 23:59 by G-tube Me dical iron)/5 mL 00 :00 route Center syrup daily. insulin 2022- No 0U Inject 0-[address] [facility] lispro 5-27 05-27 Units [facility] (HumaLOG) 00:00: 23:59 subcutaneo M edical 100 unit/mL 00 :00 usly 3 Center injection (three) times daily before meals. acetaminoph 2022- No 650mg Take [address] [facility] [address] [facility] en 08-19 05-22 tablets [facility] (TYLENOL) 00:00: 23:59 (650 mg Medi kurt 325 MG 00 :00 total) by Center tablet mouth every 4 (four) hours as needed for up to 360 days. acetaminoph 2022- No 650mg Take [address] [facility] [address] [facility] en 08-19 05-22 tablets [facility] (TYLENOL) 00:00: 23:59 (650 mg Medi kurt 325 MG 00 :00 total) by Center tablet mouth every 4 (four) hours as needed for up to 360 days. acetaminoph 2021- No 650mg Take [address] [facility] [address] [facility] en 08-19 07-02 tablets [facility] (TYLENOL) 00:00: 00:00 (650 mg Medi kurt 325 MG 00 :00 total) by Center tablet mouth every 4 (four) hours as needed for up to 360 days. acyclovir 2021- No 790mg Inject [address] [facility] (ZOVIRAX) 08-19- mg [facility] IVPB in 150 00:00: 00:00 intravenou Medical mL 00 :00 sly every Center 8 (eight) hours. aluminum & 2021- No 30mL Take [address] [facility] magnesium 08-19 mLs by [facility] hydroxide-s 00:00: 00:00 mouth Medi kurt imethicone 00 :00 every 6 Center (MAALOX (six) PLUS) hours as 400-400-40 needed for mg/5 mL up to 10 suspension days. bisacodyL 2021- No 10mg Place [address] [facility] (DULCOLAX) 08-19 suppositor [facility] kes 10 mg 00:00: 00:00 y (10 mg Medical suppository 00 :00 total) Center rectally daily as needed for up to 10 days. cefTRIAXone 2021- No 2g Q24H Inject [address] [facility] (ROCEPHIN) 08-19 intravenou Poly kes 2 g in 00:00: 00:00 sly daily. Medi kurt sodium 00 :00 Center chloride 0.9 % (NS) 100 mL (V2B) IVPB dextrose 50 2021- No 12.5g Inject [address] [facility] % in water 08-19 mLs (12.5 [facility] (dextrose 00:00: 00:00 g total) Med ical 50%, D50W,) 00 :00 intravenou Ce nter Syrg sly as injection needed (blood sugar less than 70 and patient unable to take PO juice or soda). docusate 2021- No 100mg Take 1 [facility] sodium 08-19 capsule [facility] (COLACE) 00:00: 00:00 (100 mg Medic al 100 MG 00 :00 total) by Center capsule mouth 2 (two) times daily as needed for Constipati on for up to 10 days. chlorhexidi 2021- No 15mL Q.5D Use as [facility] ne 08-19 directed [facility] (PERIDEX) 00:00: 00:00 15 mLs in Me dical 0.12 % 00 :00 the mouth Center solution or throat 2 (two) times daily for 14 days. gentamicin 2021- No 1{appli Apply [address] [facility] (GARAMYCIN) 08-19 cation} applicatio [facility] 0.1 % cream 00:00: 00:00 n Medic al 00 :00 topically Center as needed (PERITONEA L DIALYSIS). glucagon 1 2021- No 1mg Inject [address] [facility] [address] [facility] mg/mL SolR 08-19 mL (1 mg [facility] injection 00:00: 00:00 total) Medic al 00 :00 intramuscu Center larly as needed (blood sugar less than 70, patient unable to take PO, AND unable to give D50W due to lack of IV access). heparin 2021- No 5000U Inject [address] [facility] injection 08-19 mL (5,000 [facility] 5,000 00:00: 00:00 Units Medical units/mL 00 :00 total) Center subcutaneo usly every 12 (twelve) hours. hydrALAZINE 2021- No 10mg Inject 0.[address] [facility] (APRESOLINE 08-19 mLs (10 mg L [facility] ) 20 mg/mL 00:00: 00:00 total) Medi kurt injection 00 :00 intravenou Cent er sly every 4 (four) hours as needed. lacosamide 2021- No 100mg Inject [address] [facility] (VIMPAT) 08-19 mg [facility] IVPB 00:00: 00:00 intravenou Medica l 00 :00 sly every Center 12 (twelve) hours. Max Daily Amount: 200 mg metroNIDAZO 2021- No 500mg Take [address] [facility] [address] [facility] LE (FLAGYL) 08-19 tablet [facility] 500 MG 00:00: 00:00 (500 mg Medical tablet 00 :00 total) by Center mouth every 8 (eight) hours. mupirocin 2021- No 1g Q.5D 1 g [facility] (BACTROBAN) 08-19 Nasal [facility] 2 % 00:00: 00:00 route 2 Medical ointment 00 :00 (two) Center times daily for 7 days. ondansetron 2021- No 4mg Take [address] [facility] (ZOFRAN-ODT 08-19 tablet (4 Poly kes ) 4 MG 00:00: 00:00 mg total) Medic al disintegrat 00 :00 by mouth Cent er ing tablet every 8 (eight) hours as needed for up to 7 days. ondansetron 2021- No 4mg Inject [address] (ZOFRAN) 4 08-19 mLs (4 mg [facility] mg/2 mL 00:00: 00:00 total) Medical injection 00 :00 intravenou Cent er sly every 4 (four) hours as needed. pantoprazol 2021- No 40mg QD Inject [address] [facility] e 08-19 mg [facility] (PROTONIX) 00:00: 00:00 intravenou Medical injection 00 :00 sly daily. Cent er 40 mg propofoL 2021- No 0ug/min Inject [facility] (DIPRIVAN) 08-19 0-5,516 [facility] 10 mg/mL 00:00: 00:00 mcg/min Medic al injection 00 :00 intravenou Cent er sly continuous . simethicone 2021- No 80mg Take [address] [facility] (MYLICON) 08-19 tablet (80 [facility] 80 MG 00:00: 00:00 mg total) Medica l chewable 00 :00 by mouth Center tablet every 6 (six) hours as needed for Flatulence for up to 10 days. vancomycin 2021- No 1500mg Inject [facility] (VANCOCIN) 08-19 1,500 mg [facility] 1500 mg in 00:00: 00:00 intravenou Medical NS 250 mL 00 :00 sly once Center (V2B) IVPB for 1 dose. white 2021- No 1{appli QD Place 1 [facility] petrolatum- 08-19 cation} applicatio [facility] mineral oiL 00:00: 00:00 n into Med ical 80-20 % 00 :00 both eyes Center Oint nightly. chlorhexidi 2021-0 2021- No 15mL Q.5D Use as [facility] ne - 06-10 directed [facility] (PERIDEX) 00:00: 23:59 15 mLs in Me dical 0.12 % 00 :00 the mouth Center solution or throat 2 (two) times daily for 14 days. chlorhexidi 2021-0 2- No 15mL Q.5D Use as [facility] ne - 06-10 directed [facility] (PERIDEX) 00:00: 23:59 15 mLs in Me dical 0.12 % 00 :00 the mouth Center solution or throat 2 (two) times daily for 14 days. aluminum & 2021-0 2021- No 30mL Take [address] [facility] magnesium 08-19-06 mLs by [facility] hydroxide-s 00:00: 23:59 mouth Medi kurt imethicone 00 :00 every 6 Center (MAALOX (six) PLUS) hours as 400-400-40 needed for mg/5 mL up to 10 suspension days. bisacodyL 2021-2021- No 10mg Place [address] [facility] (DULCOLAX) 08-19-06 suppositor Poly kes 10 mg 00:00: 23:59 y (10 mg Medical suppository 00 :00 total) Center rectally daily as needed for up to 10 days. docusate 2021-0 2021- No 100mg Take 1 [facility] sodium 08-19-06 capsule [facility] (COLACE) 00:00: 23:59 (100 mg Medic al 100 MG 00 :00 total) by Center capsule mouth 2 (two) times daily as needed for Constipati on for up to 10 days. simethicone 2021-0 2021- No 80mg Take [address] [facility] (MYLICON) 08-19-06 tablet (80 [facility] 80 MG 00:00: 23:59 mg total) Medica l chewable 00 :00 by mouth Center tablet every 6 (six) hours as needed for Flatulence for up to 10 days. aluminum & 2-0 2021- No 30mL Take [address] [facility] magnesium - 06-06 mLs by [facility] hydroxide-s 00:00: 23:59 mouth Medi kurt imethicone 00 :00 every 6 Center (MAALOX (six) PLUS) hours as 400-400-40 needed for mg/5 mL up to 10 suspension days. bisacodyL 2021- No 10mg Place [address] [facility] (DULCOLAX) 08-19 suppositor Poly kes 10 mg 00:00: 23:59 y (10 mg Medical suppository 00 :00 total) Center rectally daily as needed for up to 10 days. docusate 2021- No 100mg Take 1 [facility] sodium 08-19 capsule [facility] (COLACE) 00:00: 23:59 (100 mg Medic al 100 MG 00 :00 total) by Center capsule mouth 2 (two) times daily as needed for Constipati on for up to 10 days. simethicone 2021- No 80mg Take [address] [facility] (MYLICON) 08-19 tablet (80 [facility] 80 MG 00:00: 23:59 mg total) Medica l chewable 00 :00 by mouth Center tablet every 6 (six) hours as needed for Flatulence for up to 10 days. mupirocin 2021- No 1g Q.5D 1 g by [facility] (BACTROBAN) 08-19 Nasal [facility] 2 % 00:00: 23:59 route 2 Medical ointment 00 :00 (two) Center times daily for 7 days. ondansetron 2021-2021- No 4mg Take [address] [facility] (ZOFRAN-ODT 08-19 tablet (4 Poly kes ) 4 MG 00:00: 23:59 mg total) Medic al disintegrat 00 :00 by mouth Cent er ing tablet every 8 (eight) hours as needed for up to 7 days. mupirocin 2021- No 1g Q.5D 1 g by [facility] (BACTROBAN) 08-19 Nasal [facility] 2 % 00:00: 23:59 route 2 Medical ointment 00 :00 (two) Center times daily for 7 days. ondansetron 2021-2021- No 4mg Take [address] [facility] (ZOFRAN-ODT 08-19 tablet (4 Poly kes ) 4 MG 00:00: 23:59 mg total) Medic al disintegrat 00 :00 by mouth Cent er ing tablet every 8 (eight) hours as needed for up to 7 days. vancomycin 2021-0 2021- No 1500mg Inject [facility] (VANCOCIN) 5- 05-27 1,500 mg [facility] 1500 mg in 00:00: 23:59 intravenou Medical NS 250 mL 00 :00 sly once Center (V2B) IVPB for 1 dose. vancomycin 2021-0 2021- No 1500mg Inject [facility] (VANCOCIN) 5- 05-27 1,500 mg [facility] 1500 mg in 00:00: 23:59 intravenou Medical NS 250 mL 00 :00 sly once Center (V2B) IVPB for 1 dose. atenolol 2021-0 2022- No 100mg QD Take [address] [facility] (TENORMIN) 5-19 05-19 mg by [facility] 100 MG 08:56: 00:00 mouth Medical tablet 42 :00 daily Pt Center takes when HR>100 . atenolol 2021-0 2022- No 100mg QD Take [address] [facility] (TENORMIN) 5-19 05-19 mg by [facility] 100 MG 08:56: 00:00 mouth Medical tablet 42 :00 daily Pt Center takes when HR>100 . atenolol 2021-0 2- No 100mg QD Take [address] [facility] (TENORMIN) 5-19 05-19 mg by [facility] 100 MG 08:56: 00:00 mouth Medical tablet 42 :00 daily Pt Center takes when HR>100 . ferrous 2021-0 2- No 324mg Take [address] [facility] gluconate 5-19 05-19 mg by [facility] (FERGON) 08:56: 00:00 mouth Medical 324 MG 17 :00 daily with Center tablet breakfast. ferrous 2022-0 2022- No 324mg Take [address] [facility] gluconate 5-19 05-19 mg by [facility] (FERGON) 08:56: 00:00 mouth Medical 324 MG 17 :00 daily with Center tablet breakfast. ferrous 2022-0 2022- No 324mg Take [address] [facility] gluconate 5-19 05-19 mg by [facility] (FERGON) 08:56: 00:00 mouth Medical 324 MG 17 :00 daily with Center tablet breakfast. cholecalcif 2021-0 Yes 5000U QD Take 5,000 [facility] qian (D3-5) 5-10 Units by Heal th 5,000 Units 10:53: mouth 1 tablet 50 (one) time each day. midodrine Yes Take 2 [facility] (Proamatine 5-10 tablets Healt h ) 5 MG 10:53: twice tablet 50 daily rotigotine 2- No [id number] 1{patch QD Place 1 [facility] (Neupro) 6 08-02 } patch on [facility] MG/24HR 00:00: 00:00 the skin 1 00 :00 (one) time each day. carbidopa-l 2021- No [id number] 2{tbl} Q.[id number] Take 2 [facility] evodopa 08-02 [id number] tablets by Health (Sinemet) 00:00: 00:00 3D mouth 3 25-100 MG 00 :00 (three) tablet times a day. ondansetron 2021- No [id number] 8mg Q.05034678 Take 1 [facility] (Zofran) 8 08-02 [id number] tablet (8 Health MG tablet 00:00: 05:59 3D mg total) 00 :00 by mouth 3 (three) times a day. rotigotine 2021- No [id number] 1{patch QD Place 1 [facility] (Neupro) 6 08-02 } patch on Heal th MG/24HR 00:00: 05:59 the skin 1 00 :00 (one) time each day. carbidopa-l 2021- No [id number] 2{tbl} Q.[id number] Take 2 [facility] evodopa 08-02 [id number] tablets by Health (Sinemet) 00:00: 05:59 3D mouth 3 25-100 MG 00 :00 (three) tablet times a day. Eliquis 5 Yes 5mg Q.5D Take 5 mg [facility] MG tablet 4-27 by mouth 2 Heal 00:00: (two) 00 times a day. Eliquis 5 Yes 5mg Q.5D Take 5 mg [facility] MG tablet 4-27 by mouth 2 Heal 00:00: (two) 00 times a day. sevelamer Yes MIX 1 [facility] carbonate 2-24 PACKET AND Heal th (Renvela) 00:00: DRINK 2.4 g 00 THREE packet TIMES DAILY sevelamer Yes MIX 1 [facility] carbonate 2-24 PACKET AND Heal th (Renvela) 00:00: DRINK 2.4 g 00 THREE packet TIMES DAILY Ascorbic Yes 1{tbl} QD Take 1 [facility] Acid 2-01 tablet by Health (vitamin C) 00:00: mouth 1 250 MG 00 (one) time tablet each day. Melatonin Yes 1{tbl} Take 1 [facility] 10 MG 2-01 tablet by Health tablet 00:00: mouth 00 every night. Multiple Yes 1{tbl} QD Take 1 [facility] Vitamin 2-01 tablet by Health (Multivitam 00:00: mouth 1 in Adult) 00 (one) time tablet each day. Ascorbic Yes 1{tbl} QD Take 1 [facility] Acid 2-01 tablet by Health (vitamin C) 00:00: mouth 1 250 MG 00 (one) time tablet each day. Melatonin Yes 1{tbl} Take 1 [facility] 10 MG 2-01 tablet by Health tablet 00:00: mouth 00 every night. Multiple Yes 1{tbl} QD Take 1 [facility] Vitamin 2-01 tablet by Health (Multivitam 00:00: mouth 1 in Adult) 00 (one) time tablet each day. ondansetron 2021- No 8mg Q.10153359 Take 8 mg [facility] (Zofran) 8 2- 05-10 [id number] by mouth 3 Health MG tablet 00:00: [...] PLACE 1 PATCH TRANSDERMA LLY ONCE DAILY hydrALAZINE 2020- No 25mg QD Take [address] [facility] (APRESOLINE 5-19 06-18 tablet (25 L ukes ) 25 MG 00:00: 23:59 mg total) Medi kurt tablet 00 :00 by mouth Center daily for 30 days. hydrALAZINE 2020- No 25mg QD Take [address] [facility] (APRESOLINE 5-19 06-18 tablet (25 L u[facility] ) 25 MG 00:00: 23:59 mg total) Medi kurt tablet 00 :00 by mouth Center daily for 30 days. hydrocodone 2019-03 Yes [id number] tk 1 tab [facility] -acetaminop 0-29 [id number] po q 8 h [facility] [employer] [facility] ([employer]CO) 00:00: prn severe of 7.5-325 MG 00 [...] FOR Medicin 30 DAYS e hydrocodone Yes [id number] tk 1 to 2 [facility] -acetaminop 9-10 [id number] tabs po q [facility] ([employer]) 00:00: 6 h prn of 7.5-325 MG 00 severe Medicin per tablet pain e hydrocodone 2020- No [id number] tk 1 to 2 [facility] -acetaminop 9-10 10-29 [id number] tabs po q [facility] hen ([facility]CO) 00:00: 00:00 6 h prn of 7.5-325 MG 00 :00 severe Medicin per tablet pain e hydrocodone Yes [id number] tk 1 to 2 [facility] -acetaminop 8-20 [id number] tabs po q [facility] ([facility]CO) 00:00: 6 h prn of 7.5-325 MG 00 severe Medicin per tablet pain e hydrocodone 2019- No [id number] tk 1 to 2 [facility] -acetaminop 8-20 09-10 [id number] tabs po q [facility] hen ([employer]) 00:00: 00:00 6 h prn of 7.5-325 MG 00 :00 severe Medicin per tablet pain e Sevelamer 2020-0 Yes TAKE 1 [facility] Carbonate 8-07 TABLET BY Colle ge 800 MG TABS 00:00: MOUTH of 00 THREE Medicin TIMES e DAILY WITH MEALS. (TAKE BOTH POWDER AND TABLETS) Sevelamer 2020-0 Yes TAKE 1 [facility] Carbonate 8-07 TABLET BY Colle ge 800 [...] MEAL THREE TIMES A DAY ELIQUIS 5 Yes TAKE 1 [facility] MG TABS 7-30 TABLET BY College 00:00: MOUTH of 00 TWICE Medicin DAILY FOR e 90 DAYS metformin Yes TAKE 1 [facility] (GLUCOPHAGE 7-30 TABLET BY Col lege ) 500 MG 00:00: MOUTH ONCE of tablet 00 DAILY WITH Medicin A MEAL FOR e 90 DAYS ELIQUIS 5 Yes TAKE 1 [facility] MG TABS 7-30 TABLET BY College 00:00: MOUTH of 00 TWICE Medicin DAILY FOR e 90 DAYS metformin 2019-0 Yes TAKE 1 [facility] (GLUCOPHAGE 7-30 TABLET BY Col lege ) 500 MG 00:00: MOUTH ONCE of tablet 00 DAILY WITH Medicin A MEAL FOR e 90 DAYS ELIQUIS 5 Yes TAKE 1 [facility] MG TABS 7-30 TABLET BY College 00:00: MOUTH of 00 TWICE Medicin DAILY FOR e 90 DAYS metformin Yes TAKE 1 [facility] (GLUCOPHAGE 7-30 TABLET BY Col lege ) 500 MG 00:00: MOUTH ONCE of tablet 00 DAILY WITH Medicin A MEAL FOR e 90 DAYS ELIQUIS 5 2019-0 2021- No 5mg Q.5D 5 mg 2 [facility] tablet 10-22 (two) [facility] 00:[facility]: 00:00 times Medical 00 :00 daily. [place] ELIQUIS 5 2019-0 2021- No 5mg Q.5D 5 mg 2 [facility] tablet 10-22 (two) [facility] 00:00: 00:00 times Medical 00 :00 daily. Center ELIQUIS 5 2019-0 2021- No 5mg Q.5D 5 mg 2 [facility] tablet 10-22 (two) [facility] 00:00: 00:00 times Medical 00 :00 daily. Center spironolact 2020-0 Yes TAKE 1 [facility] one 7-29 TABLET BY [facility] (ALDACTONE) 00:00: MOUTH ONCE of 25 MG 00 DAILY Medicin tablet e spironolact 2019-0 Yes TAKE 1 [facility] one 7-29 TABLET BY [facility] (ALDACTONE) 00:00: MOUTH ONCE of 25 MG 00 DAILY Medicin tablet e spironolact 2020-0 Yes TAKE 1 [facility] one 7-29 TABLET BY [facility] (ALDACTONE) 00:00: MOUTH ONCE of 25 MG 00 DAILY [facility] tablet e spironolact 2020-0 2021- No 25mg QD Take [address] [facility] 7- 05-19 by mouth [facility] (ALDACTONE) 00:00: 00:00 daily. Med ical 25 MG 00 :00 Center tablet spironolact 2020-0 2021- No 25mg QD Take [address] [facility] one 7-29 05-19 by [facility] (ALDACTONE) 00:00: 00:00 daily. Med ical 25 MG 00 :00 Center tablet spironolact 2020-0 2022- No 25mg QD Take [address] [facility] one 7-29 05-19 by mouth [facility] (ALDACTONE) 00:00: 00:00 daily. Med ical 25 MG 00 :00 Center tablet atenolol 2019-0 Yes TAKE 1 [facility] (TENORMIN) 7-10 TABLET BY Ruiz ege 50 MG 00:00: MOUTH ONCE of tablet 00 DAILY Medicin e clonidine 2020-0 Yes TAKE 1 [facility] (CATAPRESS) 7-10 TABLET BY Col lege 0.3 MG 00:00: MOUTH ONCE of tablet 00 DAILY Medicin e doxazosin 2020-0 Yes TAKE 1 [facility] (CARDURA) 8 7-10 TABLET BY Col lege MG tablet 00:00: MOUTH ONCE of 00 DAILY Medicin e atenolol 2020-0 Yes TAKE 1 [place] (TENORMIN) 7-10 TABLET BY Ruiz e[facility] 50 MG 00:00: MOUTH ONCE of tablet 00 DAILY Medicin e clonidine 2020-0 Yes TAKE 1 [facility] (CATAPRESS) 7-10 TABLET BY Col lege 0.3 MG 00:00: MOUTH ONCE of tablet 00 DAILY Medicin e doxazosin 2020-0 Yes TAKE 1 [facility] (CARDURA) 8 7-10 TABLET BY Col lege MG tablet 00:00: MOUTH ONCE of 00 DAILY Medicin e atenolol 2020-0 Yes TAKE 1 [facility] (TENORMIN) 7-10 TABLET BY [facility] 50 MG 00:00: MOUTH ONCE of tablet 00 DAILY Medicin e clonidine 2020-0 Yes TAKE 1 [facility] (CATAPRESS) 7-10 TABLET BY Col lege 0.3 MG 00:00: MOUTH ONCE of tablet 00 DAILY Medicin e doxazosin 2020-0 Yes TAKE 1 [place] (CARDURA) 8 7-10 TABLET BY Col lege MG tablet 00:00: MOUTH ONCE of 00 DAILY Medicin e ascorbic 2018-03 Yes 500mg Take 500 Univ ers acid, 1-04 mg by ity of vitamin C, 16:36: mouth. [place] 500 mg Medical tablet Branch calcitriol 2018-03 Yes .25ug Take 0.25 U nivers 0.25 mcg 1-04 mcg by ity of capsule 16:36: mouth. [place] [address] Medical Branch Cholecalcif 2018-03 Yes 5000U Take 5,000 Univers qian, 1-04 Units by ity of Vitamin D3, 16:36: mouth. [facility] s 5,000 unit Medical tablet Branch ferrous 2018-03 Yes 324mg Take 324 Unive rs gluconate 1-04 mg by ity of 324 mg (38 16:36: mouth. [place] mg iron) Medical tablet Branch sevelamer 2018-03 Yes .8g Take 0.8 g Un mike carbonate 1-04 by mouth 3 ity of 0.8 gram 16:36: (three) [place] powder 39 times Medical packet daily with Branch meals. melatonin 2018-03 Yes 1{tbl} Take 1 Univ ers 10 mg Tab 1-04 tablet by ity o f 16:36: mouth at [place] [address] bedtime. Medical Branch ascorbic 2018-03 Yes 500mg Take 500 Univ ers acid, 1-04 mg by ity of vitamin C, 16:36: mouth. [place] 500 mg 39 Medical tablet Branch calcitriol 2018-03 Yes .25ug Take 0.25 U nivers 0.25 mcg 1-04 mcg by ity of capsule 16:36: mouth. [place] [address] Medical Branch Cholecalcif 2018-03 Yes 5000U Take 5,000 [facility] qian, 1-04 Units by ity of Vitamin D3, 16:36: [place]. [place] 39 Medical tablet Branch ferrous 2018-03 Yes 324mg Take 324 Unive rs gluconate 1-04 mg by ity of 324 mg (38 16:36: mouth. [place] mg iron) Medical tablet Branch sevelamer 2018-03 Yes .8g Take 0.8 g Un mike carbonate 1-04 by mouth 3 ity of 0.8 gram 16:36: (three) [place] powder 39 times Medical packet daily with Branch meals. melatonin 2018-03 Yes 1{tbl} Take 1 Univ ers 10 mg Tab 1-04 tablet by ity o f 16:36: mouth at [place] [address] bedtime. Medical Branch ascorbic 2018-03 Yes 500mg Take 500 Univ ers acid, 1-04 mg by ity of vitamin C, 16:36: mouth. [place] 500 mg Medical tablet Branch calcitriol 2018-03 Yes .25ug Take 0.25 U nivers 0.25 mcg 1-04 mcg by ity of capsule 16:36: mouth. [place] [address] Medical Branch Cholecalcif 2018-03 Yes 5000U Take 5,000 Univers qian, 1-04 Units by ity of Vitamin D3, 16:36: [place]. [place] 39 Medical tablet Branch ferrous 2018-03 Yes 324mg Take 324 Unive rs gluconate 1-04 mg by ity of 324 mg (38 16:36: mouth. [place] mg iron) 39 Medical tablet Branch sevelamer 2018-03 Yes .8g Take 0.8 g Un mike carbonate 1-04 by mouth 3 ity of 0.8 gram 16:36: (three) [place] powder 39 times Medical packet daily with Branch meals. melatonin 2018-03 Yes 1{tbl} Take 1 Univ ers 10 mg Tab 1-04 tablet by ity o f 16:36: mouth at [place] [address] bedtime. Medical Branch ascorbic 2018-03 Yes 500mg Take 500 Univ ers acid, 1-04 mg by ity of vitamin C, 16:36: mouth. [place] 500 mg 39 Medical tablet Branch calcitriol 2018-03 Yes .25ug Take 0.25 U nivers 0.25 mcg 1-04 mcg by ity of capsule 16:36: mouth. [place] [address] Medical Branch Cholecalcif 2018-03 Yes 5000U Take 5,000 Univers qian, 1-04 Units by ity of Vitamin D3, 16:36: [place]. [place] 39 Medical tablet Branch ferrous 2018-03 Yes 324mg Take 324 Unive rs gluconate 1-04 mg by ity of 324 mg (38 16:36: mouth. [place] mg iron) Medical tablet Branch sevelamer 2018-03 Yes .8g Take 0.8 g Un mike carbonate 1-04 by mouth 3 ity of 0.8 gram 16:36: (three) [place] powder 39 times Medical packet daily with Branch meals. melatonin 2018-03 Yes 1{tbl} Take 1 Univ ers 10 mg Tab 1-04 tablet by ity o f 16:36: mouth at [place] [address] bedtime. Medical Branch ascorbic 2018-03 Yes 500mg Take 500 Univ ers acid, 1-04 mg by ity of vitamin C, 16:36: mouth. [place] 500 mg Medical tablet Branch calcitriol 2018-03 Yes .25ug Take 0.25 U nivers 0.25 mcg 1-04 mcg by ity of capsule 16:36: mouth. [place] [address] Medical Branch Cholecalcif 2018-03 Yes 5000U Take 5,000 Univers qian, 1-04 Units by ity of Vitamin D3, [...] by ity o f 16:36: mouth at [place] [address] bedtime. Medical Branch ascorbic 2018-03 Yes 500mg Take 500 Univ ers acid, 1-04 mg by ity of vitamin C, 16:36: mouth. [place] 500 mg 39 Medical tablet Branch calcitriol 2018-03 Yes .25ug Take 0.25 U nivers 0.25 mcg 1-04 mcg by ity of capsule 16:36: mouth. [place] [address] Medical Branch Cholecalcif 2018-03 Yes 5000U Take 5,000 Univers qian, 1-04 Units by ity of Vitamin D3, 16:36: mouth. [facility] unit 39 Medical tablet Branch [...] by ity o f 16:36: mouth at [place] [address] bedtime. Medical Branch aspirin 81 2018-03 Yes 81mg Take 81 mg U nivers mg EC 1-04 by mouth ity of tablet 16:32: daily. [place] [address] Medical Branch glimepiride 2018-03 Yes 4mg Take 4 mg U nivers 4 mg tablet 1-04 by mouth ity of 16:32: daily with [place] [address] breakfast. Medical Branch aspirin 81 2018-03 Yes 81mg Take 81 mg U nivers mg EC 1-04 by mouth ity of tablet 16:32: daily. [place] [address] Medical Branch glimepiride 2018-03 Yes 4mg Take 4 mg U nivers 4 mg tablet 1-04 by mouth ity of 16:32: daily with [place] [address] breakfast. Medical Branch aspirin 81 2018-03 Yes 81mg Take 81 mg U nivers mg EC 1-04 by mouth ity of tablet 16:32: daily. [place] [address] Medical Branch glimepiride 2018-03 Yes 4mg Take 4 mg U nivers 4 mg tablet 1-04 by mouth ity of 16:32: daily with [place] 24 breakfast. Medical Branch aspirin 81 2018-03 Yes 81mg Take 81 mg U nivers mg EC 1-04 by mouth ity of tablet 16:32: daily. [place] [address] Medical Branch glimepiride 2018-03 Yes 4mg Take 4 mg U nivers 4 mg tablet 1-04 by mouth ity of 16:32: daily with [place] 24 breakfast. Medical Branch aspirin 81 2018-03 Yes 81mg Take 81 mg U nivers mg EC 1-04 by mouth ity of tablet 16:32: daily. [place] [address] Medical Branch glimepiride 2018-03 Yes 4mg Take 4 mg U nivers 4 mg tablet 1-04 by mouth ity of 16:32: daily with [place] 24 breakfast. Medical Branch aspirin 81 2018-03 Yes 81mg Take 81 mg U nivers mg EC 1-04 by mouth ity of tablet 16:32: daily. [place] [address] Medical Branch glimepiride 2018-03 Yes 4mg Take 4 mg U nivers 4 mg tablet 1-04 by mouth ity of 16:32: daily with [place] [address] breakfast. Medical Branch metFORMIN 2018-03 Yes TAKE [...] ity o f Misc 00:00: ONCE DAILY [place] [facility] ONETOUCH 2019-1 Yes USE Univers VERIO FLEX 0-02 DIRECTED ity o f Misc 00:00: ONCE DAILY [place] [facility] ONETOUCH 2019-1 Yes USE Univers VERIO FLEX 0-02 DIRECTED ity o f Misc 00:00: ONCE DAILY [place] [facility] ONETOUCH 2019-1 Yes USE Univers VERIO FLEX 0-02 DIRECTED ity o f Misc 00:00: ONCE DAILY [place] [facility] ONETOUCH 2019-1 Yes USE Univers VERIO FLEX 0-02 DIRECTED ity o f Misc 00:00: ONCE DAILY [place] [facility] ONETOUCH 2019-1 Yes USE Univers VERIO FLEX 0-02 DIRECTED ity o f Misc 00:00: ONCE DAILY [place] [facility] clopidogrel 2019-0 Yes 75mg Take 75 mg Univers 75 mg 6-17 by mouth. ity of tablet 00:00: [place] [facility] clopidogrel 2019-0 Yes 75mg Take 75 mg Univers 75 mg 6-17 by mouth. ity of tablet 00:00: [place] [facility] clopidogrel 2019-0 Yes 75mg Take 75 mg Univers 75 mg 6-17 by mouth. ity of tablet 00:00: [place] [facility] clopidogrel 2019-0 Yes 75mg Take 75 mg Univers 75 mg 6-17 by mouth. ity of tablet 00:00: [place] [facility] clopidogrel 2019-0 Yes 75mg Take 75 mg Univers 75 mg 6-17 by mouth. ity of tablet 00:00: [place] [facility] clopidogrel 2019-0 Yes 75mg Take 75 mg Univers 75 mg 6-17 by mouth. ity of tablet 00:00: [place] [facility] acetaminoph 2017- Yes 1{tbl} Take 1 Un mike en-codeine [...] by mouth ity of tablet 00:00: at [place] [address] bedtime. Medical Branch pravastatin 2017-0 Yes 20mg Take 20 mg Univers 20 mg 8-02 by mouth ity of tablet 00:00: at [place] [address] bedtime. Medical Branch pravastatin 2017-0 Yes 20mg Take 20 mg Univers 20 mg 8-02 by mouth ity of tablet 00:00: at [place] [address] bedtime. Medical Branch pravastatin 2017-0 Yes 20mg Take 20 mg Univers 20 mg 8-02 by mouth ity of tablet 00:00: at [place] [address] bedtime. Medical Branch pravastatin 2017-0 Yes 20mg Take 20 mg Univers 20 mg 8-02 by mouth ity of tablet 00:00: at [place] [address] bedtime. Medical Branch pravastatin 2017-0 Yes 20mg Take 20 mg Univers 20 mg 8-02 by mouth ity of tablet 00:00: at [place] [address] bedtime. [facility] atenolol 50 Yes 50mg Take 50 mg Univers mg tablet 7-20 by mouth ity of 00:00: daily. [facility] atenolol 50 0 Yes 50mg Take 50 mg Univers mg tablet 7-20 by mouth ity of 00:00: daily. [facility] atenolol 50 Yes 50mg Take 50 mg Univers mg tablet 7-20 by mouth ity of 00:00: daily. [facility] atenolol 50 0 Yes 50mg Take 50 mg Univers mg tablet 7-20 by mouth ity of 00:00: daily. [facility] atenolol 50 Yes 50mg Take 50 mg Univers mg tablet 7-20 by mouth ity of 00:00: daily. [facility] atenolol 50 0 Yes 50mg Take 50 mg Univers mg tablet 7-20 by mouth ity of 00:00: daily. [facility] JANUVIA 50 0 Yes 50mg Take 50 mg U nivers mg tablet 7-17 by mouth ity of 00:00: daily. [facility] JANUVIA 50 2017-0 Yes 50mg Take 50 mg U nivers mg tablet 7-17 by mouth ity of 00:00: daily. [facility] JANUVIA 50 0 Yes 50mg Take [...] f 00:00: every evening. Medical Branch acetaminoph 2017-0 Yes 1{tbl} Take 1 Un mike en-codeine 7-14 tablet by ity of 300-30 mg 00:00: mouth [place] tablet 00 every 6 Medical (six) Branch hours as needed. acetaminoph 2016- Yes 1{tbl} Take 1 Un mike en-codeine [...] f 00:00: every evening. Medical Branch acetaminoph 2017-0 Yes 1{tbl} [...] every 00 evening. Medical Branch ramipril 5 Yes 5mg Take [...] of 00:00: evening. Medical Branch BELSOMRA 10 0 Yes 10mg 10 mg Unive rs mg Tab 6-21 every ity of 00:00: evening. Medical Branch BELSOMRA 10 Yes 10mg 10 mg Unive rs mg Tab 6-21 every ity of 00:00: evening. [facility] KLOR-CON 0 Yes Univers M10 10 mEq 6-20 ity of tablet 00:00: [facility] KLHI-CON 0 Yes Univers M10 10 mEq 6-20 ity of tablet 00:00: [facility] KLHI-CON 0 Yes Univers M10 10 mEq 6-20 ity of tablet 00:00: [facility] KLHI-CON 0 Yes Univers M10 10 mEq 6-20 ity of tablet 00:00: [facility] KLHI-CON 0 Yes Univers M10 10 mEq 6-20 ity of tablet 00:00: [facility] KLHI-CON 0 Yes Univers M10 10 mEq 6-20 ity of tablet 00:00: [place] [facility] cloniDINE 2016-0 Yes .1mg Take 0.1 Univ ers 0.1 mg 5-25 mg by ity of tablet 00:00: mouth 2 ([facility]) Medical times Branch daily. cloniDINE 2016-0 Yes .1mg Take 0.1 Univ ers 0.1 mg 5-25 mg by ity of tablet 00:00: mouth 2 (two) Medical times Branch daily. cloniDINE 2016-0 Yes .1mg Take 0.1 Univ ers 0.1 mg 5-25 mg by ity of tablet 00:00: mouth 2 (two) Medical times Branch daily. cloniDINE 2017-0 Yes .1mg Take 0.1 Univ ers 0.1 mg 5-25 mg by ity of tablet 00:00: mouth 2 (two) Medical times Branch daily. cloniDINE 2016-0 Yes .1mg Take 0.1 Univ ers 0.1 mg 5-25 mg by ity of tablet 00:00: mouth 2 [place] (two) Medical times Branch daily. cloniDINE 2017-0 Yes .1mg Take 0.1 Univ ers 0.1 mg 5-25 mg by ity of tablet 00:00: mouth 2 [place] [address] (two) [facility] times [place] daily. NIFEdipine Yes 90mg Take 90 mg U nivers XL 90 mg 24 5-24 by mouth ity of hr tablet 00:00: daily. [address] NIFEdipine 2016- Yes 90mg Take 90 mg U nivers XL 90 mg 24 5-24 by mouth ity of hr tablet 00:00: daily. [address] NIFEdipine 0 Yes 90mg Take 90 mg U nivers XL 90 mg 24 5-24 by mouth ity of hr tablet 00:00: daily. [address] NIFEdipine Yes 90mg Take 90 mg U nivers XL 90 mg 24 5-24 by mouth ity of hr tablet 00:00: daily. [address] NIFEdipine Yes 90mg Take 90 mg U nivers XL 90 mg 24 5-24 by mouth ity of hr tablet 00:00: daily. [address] NIFEdipine Yes 90mg Take 90 mg U nivers XL 90 mg 24 5-24 by mouth ity of hr tablet 00:00: daily. [address] Branch hydroCHLORO 2016-0 Yes Univer s thiazide 25 5-23 ity of mg tablet 00:00: [address] Branch hydroCHLORO 2016-0 Yes Univer s thiazide 25 5-23 ity of mg tablet 00:00: [address] hydroCHLORO 2016-0 Yes Univer s thiazide 25 5-23 ity of mg tablet 00:00: [address] hydroCHLORO 2017-0 Yes Univer s thiazide 25 5-23 ity of mg tablet 00:00: [address] hydroCHLORO 2017-0 Yes Univer s thiazide 25 5-23 ity of mg tablet 00:00: [address] hydroCHLORO 2017-0 Yes Univer s thiazide 25 5-23 ity of mg tablet 00:00: [address] NIFEdipine 0 Yes Essential 90mg QD Take 1 [place] (PROCARDIA 4-06 hypertensio tablet by T-Quad 22) 90 mg 00:00: n, benign mouth extended 00 daily. release tablet NIFEdipine Yes Essential 30mg QD Take 1 [facility] (PROCARDIA 4-06 hypertensio tablet by T-Quad 22) 30 mg 00:00: n, benign mouth extended 00 daily Take release in tablet addition to 90 mg to make 120 mg daily. metFORMIN 2017-0 Yes Type 2 1000mg Q.5D Take 2 [place] [facility] (GLUCOPHAGE 4-06 diabetes tablets by [email or web address] ) 500 mg 00:00: mellitus mouth 2 tablet 00 with times diabetic daily nephropathy (with , meals) unspecified Increased care home dose. insulin use status NIFEdipine Yes Essential 90mg QD Take 1 [facility] (PROCARDIA 4-06 hypertensio tablet by T-Quad 22) 90 mg 00:00: n, benign mouth extended 00 daily. release tablet NIFEdipine 0 Yes Essential 30mg QD Take 1 [facility] (PROCARDIA 4-06 hypertensio tablet by T-Quad 22) 30 mg 00:00: n, benign mouth extended 00 daily Take release in tablet addition to 90 mg to make 120 mg daily. metFORMIN 2016-0 Yes Type 2 1000mg Take 2 [place] (GLUCOPHAGE 4-06 diabetes tablets by [email or web address] ) 500 mg 00:00: mellitus mouth 2 tablet 00 with times diabetic daily nephropathy (with , meals) unspecified Increased care home dose. insulin use status NIFEdipine Yes Essential 90mg QD Take 1 [facility] (PROCARDIA 4-06 hypertensio tablet by T-Quad 22) 90 mg 00:00: n, benign mouth extended 00 daily. release tablet NIFEdipine 0 Yes Essential 30mg QD Take 1 [facility] (PROCARDIA 4-06 hypertensio tablet by T-Quad 22) 30 mg 00:00: n, benign mouth extended 00 daily Take release in tablet addition to 90 mg to make 120 mg daily. metFORMIN 2017-0 Yes Type 2 1000mg Take 2 [place] (GLUCOPHAGE 4-06 diabetes tablets by [email or web address] ) 500 mg 00:00: mellitus mouth 2 tablet 00 with times diabetic daily nephropathy (with , meals) unspecified Increased care home dose. insulin use status NIFEdipine Yes Essential 90mg QD Take 1 [facility] (PROCARDIA 4-06 hypertensio tablet by T-Quad 22) 90 mg 00:00: n, benign mouth extended 00 daily. release tablet NIFEdipine 0 Yes Essential 30mg QD Take 1 [facility] (PROCARDIA 4-06 hypertensio tablet by T-Quad 22) 30 mg 00:00: n, benign mouth extended 00 daily Take release in tablet addition to 90 mg to make 120 mg daily. metFORMIN 2017-0 Yes Type 2 1000mg Take 2 [place] (GLUCOPHAGE 4-06 diabetes tablets by [email or web address] ) 500 mg 00:00: mellitus mouth 2 tablet 00 with times diabetic daily nephropathy (with , meals) unspecified Increased [employer] dose. insulin use status NIFEdipine 0 Yes Essential 90mg QD Take 1 [facility] (PROCARDIA 4-06 hypertensio tablet by T-Quad 22) 90 mg 00:00: n, benign mouth extended 00 daily. release tablet NIFEdipine Yes Essential 30mg QD Take 1 [facility] (PROCARDIA 4-06 hypertensio tablet by T-Quad 22) 30 mg 00:00: n, benign mouth extended 00 daily Take release in tablet addition to 90 mg to make 120 mg daily. metFORMIN Yes Type 2 1000mg Take 2 [place] (GLUCOPHAGE 4-06 diabetes tablets by [email or web address] ) 500 mg 00:00: mellitus mouth 2 tablet 00 with times diabetic daily nephropathy (with , meals) unspecified Increased [employer] dose. insulin use status NIFEdipine Yes Essential 90mg QD Take 1 [facility] (PROCARDIA 4-06 hypertensio tablet by T-Quad 22) 90 mg 00:00: n, benign mouth extended 00 daily. release tablet NIFEdipine Yes Essential 30mg QD Take 1 [facility] (PROCARDIA 4-06 hypertensio tablet by T-Quad 22) 30 mg 00:00: n, benign mouth extended 00 daily Take release in tablet addition to 90 mg to make 120 mg daily. metFORMIN Yes Type 2 1000mg Take 2 [place] (GLUCOPHAGE 4-06 diabetes tablets by [email or web address] ) 500 mg 00:00: mellitus mouth 2 tablet 00 with times diabetic daily nephropathy (with , meals) unspecified Increased [employer] dose. insulin use status NIFEdipine Yes Essential 90mg QD Take 1 [facility] (PROCARDIA 4-06 hypertensio tablet by T-Quad 22) 90 mg 00:00: n, benign mouth extended 00 daily. release tablet NIFEdipine 0 Yes Essential 30mg QD Take 1 [facility] (PROCARDIA 4-06 hypertensio tablet by T-Quad 22) 30 mg 00:00: n, benign mouth extended 00 daily Take release in tablet addition to 90 mg to make 120 mg daily. metFORMIN Yes Type 2 1000mg Take 2 [place] (GLUCOPHAGE 4-06 diabetes tablets by [email or web address] ) 500 mg 00:00: mellitus mouth 2 tablet 00 with times diabetic daily nephropathy (with , meals) unspecified Increased [employer] dose. insulin use status NIFEdipine Yes Essential 90mg QD Take 1 [facility] (PROCARDIA 4-06 hypertensio tablet by T-Quad 22) 90 mg 00:00: n, benign mouth extended 00 daily. release tablet NIFEdipine 0 Yes Essential 30mg QD Take 1 [facility] (PROCARDIA 4-06 hypertensio tablet by T-Quad 22) 30 mg 00:00: n, benign mouth extended 00 daily Take release in tablet addition to 90 mg to make 120 mg daily. metFORMIN 2016-0 Yes Type 2 1000mg Take 2 [place] (GLUCOPHAGE 4-06 diabetes tablets by [email or web address] ) 500 mg 00:00: mellitus mouth 2 tablet 00 with times diabetic daily nephropathy (with , meals) unspecified Increased [employer] dose. insulin use status NIFEdipine Yes Essential 90mg QD Take 1 [facility] (PROCARDIA 4-06 hypertensio tablet by T-Quad 22) 90 mg 00:00: n, benign mouth extended 00 daily. release tablet NIFEdipine 0 Yes Essential 30mg QD Take 1 [facility] (PROCARDIA 4-06 hypertensio tablet by T-Quad 22) 30 mg 00:00: n, benign mouth extended 00 daily Take release in tablet addition to 90 mg to make 120 mg daily. metFORMIN Yes Type 2 1000mg Q.5D Take 2 [place] (GLUCOPHAGE 4-06 diabetes tablets by [email or web address] ) 500 mg 00:00: mellitus mouth 2 tablet 00 with times diabetic daily nephropathy (with , meals) unspecified Increased [employer] dose. insulin use status NIFEdipine Yes Essential 90mg QD Take 1 [facility] (PROCARDIA 4-06 hypertensio tablet by T-Quad 22) 90 mg 00:00: n, benign mouth extended 00 daily. release tablet NIFEdipine 0 Yes Essential 30mg QD Take 1 [facility] (PROCARDIA 4-06 hypertensio tablet by T-Quad 22) 30 mg 00:00: n, benign mouth extended 00 daily Take release in tablet addition to 90 mg to make 120 mg daily. metFORMIN 2017-0 Yes Type 2 1000mg Take 2 [place] [facility] (GLUCOPHAGE 4-06 diabetes tablets by [email or web address] ) 500 mg 00:00: mellitus mouth 2 tablet 00 with times diabetic daily nephropathy (with , meals) unspecified Increased care home dose. insulin use status NIFEdipine 0 Yes Essential 90mg QD Take 1 [facility] (PROCARDIA 4-06 hypertensio tablet by T-Quad 22) 90 mg 00:00: n, benign mouth extended 00 daily. release tablet NIFEdipine 0 Yes Essential 30mg QD Take 1 [facility] (PROCARDIA 4-06 hypertensio tablet by [email or web address] XL) 30 mg 00:00: n, benign mouth extended 00 daily Take release in tablet addition to 90 mg to make 120 mg daily. metFORMIN Yes Type 2 1000mg Take 2 [place] [facility] (GLUCOPHAGE 4-06 diabetes tablets by [facility] ) 500 mg 00:00: mellitus mouth 2 tablet 00 with times diabetic daily nephropathy (with , meals) unspecified Increased [employer] dose. insulin use status glimepiride Yes Type 2 DM 8mg QD Take 2 [facility] (AMARYL) 4 3- with CKD tablets by [email or web address] mg tablet 00:00: stage 4 and mouth 00 hypertensio every n morning (before breakfast) . lisinopril Yes Essential 40mg QD Take 1 [facility] (ZESTRIL) 3 hypertensio tablet by [email or web address] 40 mg 00:00: n mouth tablet 00 daily. NIFEdipine Yes Essential 30mg QD Take 1 [facility] (PROCARDIA 3 hypertensio tablet by [email or web address] XL) 30 mg 00:00: n mouth extended 00 daily Take release in tablet addition to Nifedipine 90mg to make a total of 120 mg daily. cloNIDine Yes Essential 1{patch Apply 1 [facility] (CATAPRES-T 06-23 hypertensio } Patch to [facility] TS-3) 0.3 00:00: n skin as mg/24 hr 00 directed patch weekly Switch Clonidine 0.3 mg tablet to Catapres patch. atenolol Yes Essential 100mg QD Take 2 [facility] (TENORMIN) 3 hypertensio tablets by [email or web address] 50 mg 00:00: n mouth tablet 00 daily. furosemide Yes Essential 40mg Take 1 [facility] (LASIX) 40 06-23 hypertensio tablet by [facility] mg tablet 00:00: n mouth 00 every 8 hours If needed you can increase to 2 pills (80mg) every 8 hours. ergocalcife Yes Vitamin D 25187F Take 1 [facility] rol 3 deficiency capsule [address] [facility] (VITAMIN 00:00: mouth D2) 50,000 00 weekly. unit capsule hydrALAZINE Yes Essential 100mg Take 1 [facility] (APRESOLINE 3 hypertensio tablet by [facility] ) 100 mg 00:00: n mouth 3 tablet 00 times daily. aspirin Yes Essential 81mg QD Chew and [facility] (ASPIRIN) 06-23 hypertensio swallow 1 [facility] 81 mg 00:00: n tablet by chewable 00 mouth tablet daily. pravastatin Yes Dyslipidemi 20mg Take 1 [place] (PRAVACHOL) 06-23 a tablet by [facility] 20 mg 00:00: mouth at tablet 00 bedtime nightly Decreased dose. 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 lisinopril Yes Essential 40mg QD Take 1 [facility] (ZESTRIL) 06-23 hypertensio tablet by [facility] 40 mg 00:00: n mouth tablet 00 daily. NIFEdipine Yes Essential 30mg QD Take 1 [facility] (PROCARDIA 06-23 hypertensio tablet by [facility] XL) 30 mg 00:00: n mouth extended 00 daily Take release in tablet addition to Nifedipine 90mg to make a total of 120 mg daily. cloNIDine Yes Essential 1{patch Apply 1 [facility] (CATAPRES-T 06-23 hypertensio } Patch to [facility] TS-3) 0.3 00:00: n skin as mg/24 hr 00 directed patch weekly Switch Clonidine 0.3 mg tablet to [facility] patch. atenolol Yes Essential 100mg QD Take 2 [facility] (TENORMIN) 06-23 hypertensio tablets by [facility] 50 mg 00:00: n mouth tablet 00 daily. furosemide Yes Essential 40mg Take 1 [place] (LASIX) 40 06-23 hypertensio tablet by [facility] mg tablet 00:00: n mouth 00 every 8 hours If needed you can increase to 2 pills (80mg) every 8 hours. ergocalcife Yes Vitamin D 13447D Take 1 [place] rol 06-23 deficiency capsule by [facility] (VITAMIN 00:00: mouth D2) 50,000 00 weekly. unit capsule hydrALAZINE Yes Essential 100mg Take 1 [place] (APRESOLINE 06-23 hypertensio tablet by [facility] ) 100 mg 00:00: n mouth 3 tablet 00 times daily. aspirin Yes Essential 81mg QD Chew and [facility] (ASPIRIN) 06-23 hypertensio swallow 1 [facility] 81 mg 00:00: n tablet by chewable 00 mouth tablet daily. pravastatin Yes Dyslipidemi 20mg Take 1 [place] (PRAVACHOL) 06-23 a tablet by [facility] 20 mg 00:00: mouth at tablet 00 bedtime nightly Decreased dose. 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 lisinopril Yes Essential 40mg QD Take 1 [place] (ZESTRIL) 06-23 hypertensio tablet by [facility] 40 mg 00:00: n mouth tablet 00 daily. NIFEdipine Yes Essential 30mg QD Take 1 [place] (PROCARDIA 06-23 hypertensio tablet by [facility] XL) 30 mg 00:00: n mouth extended 00 daily Take release in tablet addition to Nifedipine 90mg to make a total of 120 mg daily. cloNIDine Yes Essential 1{patch Apply 1 [facility] (CATAPRES-T 06-23 hypertensio } Patch to [facility] TS-3) 0.3 00:00: n skin as mg/24 hr 00 directed patch weekly Switch Clonidine 0.3 mg tablet to Catapres patch. atenolol Yes Essential 100mg QD Take 2 [facility] (TENORMIN) 06-23 hypertensio tablets by [facility] 50 mg 00:00: n mouth tablet 00 daily. furosemide Yes Essential 40mg Take 1 [place] (LASIX) 40 06-23 hypertensio tablet by [facility] mg tablet 00:00: n mouth 00 every 8 hours If needed you can increase to 2 pills (80mg) every 8 hours. ergocalcife Yes Vitamin D 20245D Take 1 [place] rol 06-23 deficiency capsule by [facility] (VITAMIN 00:00: mouth D2) 50,000 00 weekly. unit capsule hydrALAZINE Yes Essential 100mg Take 1 [place] (APRESOLINE 06-23 hypertensio tablet by [facility] ) 100 mg 00:00: n mouth 3 tablet 00 times daily. aspirin Yes Essential 81mg QD Chew and [facility] (ASPIRIN) 06-23 hypertensio swallow 1 [facility] 81 mg 00:00: n tablet by chewable 00 mouth tablet daily. pravastatin Yes Dyslipidemi 20mg Take 1 [place] (PRAVACHOL) 06-23 a tablet by [facility] 20 mg 00:00: mouth at tablet 00 bedtime nightly Decreased dose. glimepiride Yes Type 2 DM 8mg QD Take 2 [place] (AMARYL) 4 06-23 with CKD tablets by [facility] mg tablet 00:00: stage 4 and mouth 00 hypertensio every n morning (before breakfast) . lisinopril Yes Essential 40mg QD Take 1 [place] (ZESTRIL) 06-23 hypertensio tablet by [facility] 40 mg 00:00: n mouth tablet 00 daily. NIFEdipine Yes Essential 30mg QD Take 1 [facility] (PROCARDIA 06-23 hypertensio tablet by [facility] XL) 30 mg 00:00: n mouth extended 00 daily Take release in tablet addition to Nifedipine 90mg to make a total of 120 mg daily. cloNIDine Yes Essential 1{patch Apply 1 [place] (CATAPRES-T 06-23 hypertensio } Patch to [facility] TS-3) 0.3 00:00: n skin as mg/24 hr 00 directed patch weekly Switch Clonidine 0.3 mg tablet to Catapres patch. atenolol Yes Essential 100mg QD Take 2 [facility] (TENORMIN) 06-23 hypertensio tablets by [facility] 50 mg 00:00: n mouth tablet 00 daily. furosemide Yes Essential 40mg Take 1 [place] (LASIX) 40 06-23 hypertensio tablet by [facility] mg tablet 00:00: n mouth 00 every 8 hours If needed you can increase to 2 pills (80mg) every 8 hours. ergocalcife Yes Vitamin D 06904D Take 1 [place] rol 06-23 deficiency capsule by [facility] (VITAMIN 00:00: mouth D2) 50,000 00 weekly. unit capsule hydrALAZINE Yes Essential 100mg Take 1 [place] (APRESOLINE 06-23 hypertensio tablet by [facility] ) 100 mg 00:00: n mouth 3 tablet 00 times daily. aspirin Yes Essential 81mg QD Chew and [facility] (ASPIRIN) 06-23 hypertensio swallow 1 [facility] 81 mg 00:00: n tablet by chewable 00 mouth tablet daily. pravastatin Yes Dyslipidemi 20mg Take 1 [place] (PRAVACHOL) 3 a tablet by [facility] 20 mg 00:00: mouth at tablet 00 bedtime nightly Decreased dose. glimepiride 2016- Yes Type 2 DM 8mg QD Take 2 [place] (AMARYL) 4 3 with CKD tablets by [facility] mg tablet 00:00: stage 4 and mouth 00 hypertensio every n morning (before breakfast) . lisinopril Yes Essential 40mg QD Take 1 [place] (ZESTRIL) 3- hypertensio tablet by [facility] 40 mg 00:00: n mouth tablet 00 daily. NIFEdipine Yes Essential 30mg QD Take 1 [facility] (PROCARDIA 3 hypertensio tablet by [facility] XL) 30 mg 00:00: n mouth extended 00 daily Take release in tablet addition to Nifedipine 90mg to make a total of 120 mg daily. cloNIDine Yes Essential 1{patch Apply 1 [facility] (CATAPRES-T 06-23 hypertensio } Patch to [facility] TS-3) 0.3 00:00: n skin as mg/24 hr 00 directed patch weekly Switch Clonidine 0.3 mg tablet to Catapres patch. atenolol Yes Essential 100mg QD Take 2 [facility] (TENORMIN) 06-23 hypertensio tablets by [facility] 50 mg 00:00: n mouth tablet 00 daily. furosemide Yes Essential 40mg Take 1 [place] (LASIX) 40 - hypertensio tablet by [facility] mg tablet 00:00: n mouth 00 every 8 hours If needed you can increase to 2 pills (80mg) every 8 hours. ergocalcife Yes Vitamin D 10276Y Take 1 [place] rol 3 deficiency capsule by [facility] (VITAMIN 00:00: mouth D2) 50,000 00 weekly. unit capsule hydrALAZINE Yes Essential 100mg Take 1 [place] (APRESOLINE 06-23 hypertensio tablet by [facility] ) 100 mg 00:00: n mouth 3 tablet 00 times daily. aspirin Yes Essential 81mg QD Chew and [facility] (ASPIRIN) 3 hypertensio swallow 1 [facility] 81 mg 00:00: n tablet by chewable 00 mouth tablet daily. pravastatin Yes Dyslipidemi 20mg Take 1 [place] (PRAVACHOL) 3 a tablet by [facility] 20 mg 00:00: mouth at tablet 00 bedtime nightly Decreased dose. glimepiride Yes Type 2 DM 8mg QD Take 2 [place] (AMARYL) 4 06-23 with CKD tablets by [facility] mg tablet 00:00: stage 4 and mouth 00 hypertensio every n morning (before breakfast) . lisinopril Yes Essential 40mg QD Take 1 [place] (ZESTRIL) 3 hypertensio tablet by [facility] 40 mg 00:00: n mouth tablet 00 daily. NIFEdipine Yes Essential 30mg QD Take 1 [place] (PROCARDIA 06-23 hypertensio tablet by [facility] XL) 30 mg 00:00: n mouth extended 00 daily Take release in tablet addition to Nifedipine 90mg to make a total of 120 mg daily. cloNIDine Yes Essential 1{patch Apply 1 [place] (CATAPRES-T 06-23 hypertensio } Patch to [facility] TS-3) 0.3 00:00: n skin as mg/24 hr 00 directed patch weekly Switch Clonidine 0.3 mg tablet to Catapres patch. atenolol Yes Essential 100mg QD Take 2 [facility] (TENORMIN) 06-23 hypertensio tablets by [facility] 50 mg 00:00: n mouth tablet 00 daily. furosemide Yes Essential 40mg Take 1 [place] (LASIX) 40 06-23 hypertensio tablet by [facility] mg tablet 00:00: n mouth 00 every 8 hours If needed you can increase to 2 pills (80mg) every 8 hours. ergocalcife Yes Vitamin D 70601E Take 1 [place] rol 06-23 deficiency capsule by [facility] (VITAMIN 00:00: mouth D2) 50,000 00 weekly. unit capsule hydrALAZINE Yes Essential 100mg Take 1 [place] (APRESOLINE 06-23 hypertensio tablet by [facility] ) 100 mg 00:00: n mouth 3 tablet 00 times daily. aspirin Yes Essential 81mg QD Chew and [facility] (ASPIRIN) 3 hypertensio swallow 1 [facility] 81 mg 00:00: n tablet by chewable 00 mouth tablet daily. pravastatin Yes Dyslipidemi 20mg Take 1 [place] (PRAVACHOL) 3 a tablet by [facility] 20 mg 00:00: mouth at tablet 00 bedtime nightly Decreased dose. glimepiride Yes Type 2 DM 8mg QD Take 2 [place] (AMARYL) 4 06-23 with CKD tablets by [facility] mg tablet 00:00: stage 4 and mouth 00 hypertensio every n morning (before breakfast) . lisinopril Yes Essential 40mg QD Take 1 [place] (ZESTRIL) 06-23 hypertensio tablet by [facility] 40 mg 00:00: n mouth tablet 00 daily. NIFEdipine Yes Essential 30mg QD Take 1 [place] (PROCARDIA 06-23 hypertensio tablet by [facility] XL) 30 mg 00:00: n mouth extended 00 daily Take release in tablet addition to Nifedipine 90mg to make a total of 120 mg daily. cloNIDine Yes Essential 1{patch Apply 1 [place] (CATAPRES-T 06-23 hypertensio } Patch to [facility] TS-3) 0.3 00:00: n skin as mg/24 hr 00 directed patch weekly Switch Clonidine 0.3 mg tablet to Catapres patch. atenolol Yes Essential 100mg QD Take 2 [place] (TENORMIN) 06-23 hypertensio tablets by [facility] 50 mg 00:00: n mouth tablet 00 daily. furosemide Yes Essential 40mg Take 1 [place] (LASIX) 40 06-23 hypertensio tablet by [facility] mg tablet 00:00: n mouth 00 every 8 hours If needed you can increase to 2 pills (80mg) every 8 hours. ergocalcife Yes Vitamin D 76848E Take 1 [place] rol 06-23 deficiency capsule by [facility] (VITAMIN 00:00: mouth D2) 50,000 00 weekly. unit capsule hydrALAZINE Yes Essential 100mg Take 1 [place] (APRESOLINE 06-23 hypertensio tablet by [facility] ) 100 mg 00:00: n mouth 3 tablet 00 times daily. aspirin 2017 Yes Essential 81mg QD Chew and [facility] [place] (ASPIRIN) 06-23 hypertensio swallow 1 [facility] 81 mg 00:00: n tablet by chewable 00 mouth tablet daily. pravastatin Yes Dyslipidemi 20mg Take 1 [place] (PRAVACHOL) 06-23 a tablet by [facility] 20 mg 00:00: mouth at tablet 00 bedtime nightly Decreased dose. glimepiride Yes Type 2 DM 8mg QD Take 2 [place] (AMARYL) 4 06-23 with CKD tablets by [facility] mg tablet 00:00: stage 4 and mouth 00 hypertensio every n morning (before breakfast) . lisinopril Yes Essential 40mg QD Take 1 [place] (ZESTRIL) 06-23 hypertensio tablet by [facility] 40 mg 00:00: n mouth tablet 00 daily. NIFEdipine Yes Essential 30mg QD Take 1 [place] (PROCARDIA 06-23 hypertensio tablet by [facility] XL) 30 mg 00:00: n mouth extended 00 daily Take release in tablet addition to Nifedipine 90mg to make a total of 120 mg daily. cloNIDine Yes Essential 1{patch Apply 1 [place] (CATAPRES-T 06-23 hypertensio } Patch to [facility] TS-3) 0.3 00:00: n skin as mg/24 hr 00 directed patch weekly Switch Clonidine 0.3 mg tablet to Catapres patch. atenolol Yes Essential 100mg QD Take 2 [place] (TENORMIN) 06-23 hypertensio tablets by [facility] 50 mg 00:00: n mouth tablet 00 daily. furosemide Yes Essential 40mg Take 1 [place] (LASIX) 40 06-23 hypertensio tablet by [facility] mg tablet 00:00: n mouth 00 every 8 hours If needed you can increase to 2 pills (80mg) every 8 hours. ergocalcife Yes Vitamin D 99221V Take 1 [place] 06-23 deficiency capsule by [facility] (VITAMIN 00:00: mouth D2) 50,000 00 weekly. unit capsule hydrALAZINE Yes Essential 100mg Take 1 [place] (APRESOLINE 06-23 hypertensio tablet by [facility] ) 100 mg 00:00: n mouth 3 tablet 00 times daily. aspirin Yes Essential 81mg QD Chew and [facility] (ASPIRIN) 06-23 hypertensio swallow 1 [facility] 81 mg 00:00: n tablet by chewable 00 mouth tablet daily. pravastatin Yes Dyslipidemi 20mg Take 1 [place] (PRAVACHOL) 06-23 a tablet by [facility] 20 mg 00:00: mouth at tablet 00 bedtime nightly Decreased dose. glimepiride Yes Type 2 DM 8mg QD Take 2 [place] (AMARYL) 4 06-23 with CKD tablets by [facility] mg tablet 00:00: stage 4 and mouth 00 hypertensio every n morning (before breakfast) . lisinopril Yes Essential 40mg QD Take 1 [place] (ZESTRIL) 3 hypertensio tablet by [facility] 40 mg 00:00: n mouth tablet 00 daily. NIFEdipine Yes Essential 30mg QD Take 1 [place] (PROCARDIA 06-23 hypertensio tablet by [facility] XL) 30 mg 00:00: n mouth extended 00 daily Take release in tablet addition to Nifedipine 90mg to make a total of 120 mg daily. cloNIDine Yes Essential 1{patch Apply 1 [place] (CATAPRES-T 06-23 hypertensio } Patch to [facility] TS-3) 0.3 00:00: n skin as mg/24 hr 00 directed patch weekly Switch Clonidine 0.3 mg tablet to Catapres patch. atenolol Yes Essential 100mg QD Take 2 [place] (TENORMIN) 06-23 hypertensio tablets by [facility] 50 mg 00:00: n mouth tablet 00 daily. furosemide Yes Essential 40mg Take 1 [place] (LASIX) 40 06-23 hypertensio tablet by [facility] mg tablet 00:00: n mouth 00 every 8 hours If needed you can increase to 2 pills (80mg) every 8 hours. ergocalcife Yes Vitamin D 70422T Take 1 [place] 06-23 deficiency capsule by [facility] (VITAMIN 00:00: mouth D2) 50,000 00 weekly. unit capsule hydrALAZINE Yes Essential 100mg Take 1 [place] (APRESOLINE 06-23 hypertensio tablet by [facility] ) 100 mg 00:00: n mouth 3 tablet 00 times daily. aspirin 2017 Yes Essential 81mg QD Chew and [facility] [place] (ASPIRIN) 06-23 hypertensio swallow 1 [facility] 81 mg 00:00: n tablet by chewable 00 mouth tablet daily. pravastatin Yes Dyslipidemi 20mg Take 1 [place] (PRAVACHOL) 3 a tablet by [facility] 20 mg 00:00: mouth at tablet 00 bedtime nightly Decreased dose. 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 lisinopril Yes Essential 40mg QD Take 1 [place] (ZESTRIL) 06-23 hypertensio tablet by [facility] 40 mg 00:00: n mouth tablet 00 daily. NIFEdipine Yes Essential 30mg QD Take 1 [place] (PROCARDIA 06-23 hypertensio tablet by [facility] XL) 30 mg 00:00: n mouth extended 00 daily Take release in tablet addition to Nifedipine 90mg to make a total of 120 mg daily. cloNIDine Yes Essential 1{patch Apply 1 [place] (CATAPRES-T 06-23 hypertensio } Patch to [facility] TS-3) 0.3 00:00: n skin as mg/24 hr 00 directed patch weekly Switch Clonidine 0.3 mg tablet to Catapres patch. atenolol Yes Essential 100mg QD Take 2 [place] (TENORMIN) 06-23 hypertensio tablets by [facility] 50 mg 00:00: n mouth tablet 00 daily. furosemide Yes Essential 40mg Take 1 [place] (LASIX) 40 06-23 hypertensio tablet by [facility] mg tablet 00:00: n mouth 00 every 8 hours If needed you can increase to 2 pills (80mg) every 8 hours. ergocalcife Yes Vitamin D 31544U Take 1 [place] 06-23 deficiency capsule by [facility] (VITAMIN 00:00: mouth D2) 50,000 00 weekly. unit capsule hydrALAZINE Yes Essential 100mg Take 1 [place] (APRESOLINE 06-23 hypertensio tablet by [facility] ) 100 mg 00:00: n mouth 3 tablet 00 times daily. aspirin Yes Essential 81mg QD Chew and [facility] (ASPIRIN) 06-23 hypertensio swallow 1 [facility] 81 mg 00:00: n tablet by chewable 00 mouth tablet daily. pravastatin Yes Dyslipidemi 20mg Take 1 [place] (PRAVACHOL) 06-23 a tablet by [facility] 20 mg 00:00: mouth at tablet 00 bedtime nightly Decreased dose. 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 lisinopril Yes Essential 40mg QD Take 1 [place] (ZESTRIL) 06-23 hypertensio tablet by [facility] 40 mg 00:00: n mouth tablet 00 daily. NIFEdipine Yes Essential 30mg QD Take 1 [place] (PROCARDIA 06-23 hypertensio tablet by [facility] XL) 30 mg 00:00: n mouth extended 00 daily Take release in tablet addition to Nifedipine 90mg to make a total of 120 mg daily. cloNIDine Yes Essential 1{patch Apply 1 [place] (CATAPRES-T 06-23 hypertensio } Patch to [facility] TS-3) 0.3 00:00: n skin as mg/24 hr 00 directed patch weekly Switch Clonidine 0.3 mg tablet to Catapres patch. atenolol Yes Essential 100mg QD Take 2 [facility] [place] (TENORMIN) 06-23 hypertensio tablets by [facility] 50 mg 00:00: n mouth tablet 00 daily. furosemide Yes Essential 40mg Take 1 [place] (LASIX) 40 06-23 hypertensio tablet by [facility] mg tablet 00:00: n mouth 00 every 8 hours If needed you can increase to 2 pills (80mg) every 8 hours. ergocalcife Yes Vitamin D 99725G Take 1 [place] rol 06-23 deficiency capsule by [facility] (VITAMIN 00:00: mouth D2) 50,000 00 weekly. unit capsule hydrALAZINE Yes Essential 100mg Take 1 [place] (APRESOLINE 06-23 hypertensio tablet by [facility] ) 100 mg 00:00: n mouth 3 tablet 00 times daily. aspirin Yes Essential 81mg QD Chew and [facility] (ASPIRIN) 06-23 hypertensio swallow 1 [facility] 81 mg 00:00: n tablet by chewable 00 mouth tablet daily. pravastatin Yes Dyslipidemi 20mg Take 1 [place] (PRAVACHOL) 06-23 a tablet by [facility] 20 mg 00:00: mouth at tablet 00 bedtime nightly Decreased dose. minoxidil Yes Essential 1.25mg Take 0.5 [place] (LONITEN) 1- hypertensio tablets by [facility] 2.5 mg 00:00: n mouth tablet 00 every 8 hours. minoxidil Yes Essential 1.25mg Take 0.5 [place] (LONITEN) 1- hypertensio tablets by [facility] 2.5 mg 00:00: n mouth tablet 00 every 8 hours. minoxidil Yes Essential 1.25mg Take 0.5 [place] (LONITEN) 1-27 hypertensio tablets by [facility] 2.5 mg 00:00: n mouth tablet 00 every 8 hours. minoxidil Yes Essential 1.25mg Take 0.5 [place] (LONITEN) 1-27 hypertensio tablets by [facility] 2.5 mg 00:00: n mouth tablet 00 every 8 hours. minoxidil Yes Essential 1.25mg Take 0.5 [place] (LONITEN) 1-27 hypertensio tablets by [facility] 2.5 mg 00:00: n mouth tablet 00 every 8 hours. minoxidil Yes Essential 1.25mg Take 0.5 [place] (LONITEN) 1-27 hypertensio tablets by [facility] 2.5 mg 00:00: n mouth tablet 00 every 8 hours. minoxidil Yes Essential 1.25mg Take 0.5 [place] (LONITEN) 1-27 hypertensio tablets by [facility] 2.5 mg 00:00: n mouth tablet 00 every 8 hours. minoxidil Yes Essential 1.25mg Take 0.5 [place] (LONITEN) 1-27 hypertensio tablets by [facility] 2.5 mg 00:00: n mouth tablet 00 every 8 hours. minoxidil Yes Essential 1.25mg Take 0.5 [place] (LONITEN) 1-27 hypertensio tablets by [facility] 2.5 mg 00:00: n mouth tablet 00 every 8 hours. minoxidil Yes Essential 1.25mg Take 0.5 [place] (LONITEN) 1-27 hypertensio tablets by [facility] 2.5 mg 00:00: n mouth tablet 00 every 8 hours. minoxidil Yes Essential 1.25mg Take 0.5 [place] (LONITEN) 1-27 hypertensio tablets by [facility] 2.5 mg 00:00: n mouth tablet 00 every 8 hours. furosemide Yes CKD 40mg Q.5D Take 1 [place] (LASIX) 40 04-17 (chronic tablet by [facility] mg tablet 00:00: kidney mouth 2 00 disease), times stage 3 daily. (moderate) potassium Yes Essential 10meq QD Take 1 [place] chloride 1-23 hypertensio tablet by [facility] (KLOR-CON 00:00: n, benign mouth M10) 10 mEq 00 daily Take extended only with release lasix. tablet furosemide 2017-0 Yes CKD 40mg Q.5D Take 1 [place] (LASIX) 40 1-23 (chronic tablet by [facility] mg tablet 00:00: kidney mouth 2 00 disease), times stage 3 daily. (moderate) potassium 2017-0 Yes Essential 10meq QD Take 1 [place] chloride 1-23 hypertensio tablet by [facility] (KLOR-CON 00:00: n, benign mouth M10) 10 mEq 00 daily Take extended only with release lasix. tablet furosemide 2017-0 Yes CKD 40mg Q.5D Take 1 [place] (LASIX) 40 1-23 (chronic tablet by [facility] mg tablet 00:00: kidney mouth 2 00 disease), times stage 3 daily. (moderate) potassium 2016- Yes Essential 10meq QD Take 1 [place] chloride 1-23 hypertensio tablet by [email or web address] (KLOR-CON 00:00: n, benign mouth M10) 10 mEq 00 daily Take extended only with release lasix. tablet furosemide 0 Yes CKD 40mg Q.5D Take 1 [place] (LASIX) 40 1-23 (chronic tablet by [facility] mg tablet 00:00: kidney mouth 2 00 disease), times stage 3 daily. (moderate) potassium 2017-0 Yes Essential 10meq QD Take 1 [place] chloride 1-23 hypertensio tablet by [email or web address] (KLOR-CON 00:00: n, benign mouth M10) 10 mEq 00 daily Take extended only with release lasix. tablet furosemide 2017-0 Yes CKD 40mg Q.5D Take 1 [place] (LASIX) 40 1-23 (chronic tablet by [facility] mg tablet 00:00: kidney mouth 2 00 disease), times stage 3 daily. (moderate) potassium 2017-0 Yes Essential 10meq QD Take 1 [place] chloride 1-23 hypertensio tablet by [facility] (KLOR-CON 00:00: n, benign mouth M10) 10 mEq 00 daily Take extended only with release lasix. tablet furosemide 2017-0 Yes CKD 40mg Q.5D Take 1 [place] (LASIX) 40 1-23 (chronic tablet by [facility] mg tablet 00:00: kidney mouth 2 00 disease), times stage 3 daily. (moderate) potassium 2017-0 Yes Essential 10meq QD Take 1 [place] chloride 1-23 hypertensio tablet by [facility] (KLOR-CON 00:00: n, benign mouth M10) 10 mEq 00 daily Take extended only with release lasix. tablet furosemide 2017-0 Yes CKD 40mg Q.5D Take 1 [place] (LASIX) 40 1-23 (chronic tablet by [facility] mg tablet 00:00: kidney mouth 2 00 disease), times stage 3 daily. (moderate) potassium 2017-0 Yes Essential 10meq QD Take 1 [place] chloride 1-23 hypertensio tablet by [facility] (KLOR-CON 00:00: n, benign mouth M10) 10 mEq 00 daily Take extended only with release lasix. tablet furosemide 2017-0 Yes CKD 40mg Q.5D Take 1 [place] (LASIX) 40 1-23 (chronic tablet by [facility] mg tablet 00:00: kidney mouth 2 00 disease), times stage 3 daily. (moderate) potassium 2017-0 Yes Essential 10meq QD Take 1 [place] chloride 1-23 hypertensio tablet by [email or web address] (KLOR-CON 00:00: n, benign mouth M10) 10 mEq 00 daily Take extended only with release lasix. tablet furosemide 2017-0 Yes CKD 40mg Q.5D Take 1 [place] (LASIX) 40 1-23 (chronic tablet by [facility] mg tablet 00:00: kidney mouth 2 00 disease), times stage 3 daily. (moderate) potassium 2017-0 Yes Essential 10meq QD Take 1 [place] chloride 1-23 hypertensio tablet by [email or web address] (KLOR-CON 00:00: n, benign mouth M10) 10 mEq 00 daily Take extended only with release lasix. tablet furosemide 2017-0 Yes CKD 40mg Q.5D Take 1 [place] (LASIX) 40 1-23 (chronic tablet by [facility] mg tablet 00:00: kidney mouth 2 00 disease), times stage 3 daily. (moderate) potassium 2017-0 Yes Essential 10meq QD Take 1 [place] chloride 1-23 hypertensio tablet by [facility] (KLOR-CON 00:00: n, benign mouth M10) 10 mEq 00 daily Take extended only with release lasix. tablet furosemide 2017-0 Yes CKD 40mg Q.5D Take 1 [place] (LASIX) 40 1-23 (chronic tablet by [facility] mg tablet 00:00: kidney mouth 2 00 disease), times stage 3 daily. (moderate) potassium 2017-0 Yes Essential 10meq QD Take 1 [place] chloride 1-23 hypertensio tablet by [facility] (KLOR-CON 00:00: n, benign mouth M10) 10 mEq 00 daily Take extended only with release lasix. tablet cloNIDine 2015-03 Yes Essential .1mg Take 1 H arris HCl 0-28 hypertensio tablet by [facility] (CATAPRES) 00:00: n, benign mouth 3 0.1 mg 00 times tablet daily. cloNIDine 2015-03 Yes Essential .1mg Take 1 H arris HCl 0-28 hypertensio tablet by [facility] (CATAPRES) 00:00: n, benign mouth 3 0.1 mg 00 times tablet daily. cloNIDine 2015-03 Yes Essential .1mg Take 1 H arris HCl 0-28 hypertensio tablet by [facility] (CATAP[facility]) 00:00: n, benign mouth 3 0.1 mg 00 times tablet daily. cloNIDine 2015-03 Yes Essential .1mg Take 1 H arris HCl 0-28 hypertensio tablet by [facility] (CATAPRES) 00:00: n, benign mouth 3 0.1 mg 00 times tablet daily. cloNIDine 2015-03 Yes Essential .1mg Take 1 H arris HCl 0-28 hypertensio tablet by [facility] ([facility]) 00:00: n, benign mouth 3 0.1 mg 00 times tablet daily. cloNIDine 2015-03 Yes Essential .1mg Take 1 H arris HCl 0-28 hypertensio tablet by [facility] (CATAP[facility]) 00:00: n, benign mouth 3 0.1 mg 00 times tablet daily. cloNIDine 2015-03 Yes Essential .1mg Take 1 H arris HCl 0-28 hypertensio tablet by [facility] ([facility]) 00:00: n, benign mouth 3 0.1 mg 00 times tablet daily. cloNIDine 2015-03 Yes Essential .1mg Take 1 H arris HCl 0-28 hypertensio tablet by [facility] (CAT[facility]) 00:00: n, benign mouth 3 0.1 mg 00 times tablet daily. cloNIDine 2015-03 Yes Essential .1mg Take 1 H arris HCl 0-28 hypertensio tablet by [facility] ([facility]) 00:00: n, benign mouth 3 0.1 mg 00 times tablet daily. cloNIDine 2015- Yes Essential .1mg Take 1 H arris HCl 0-28 hypertensio tablet by [facility] (CATAP[facility]) 00:00: n, benign mouth 3 0.1 mg 00 times tablet daily. cloNIDine 2015- Yes Essential .1mg Take 1 H arris HCl 0-28 hypertensio tablet by [facility] ([facility]) 00:00: n, benign mouth 3 0.1 mg 00 times tablet daily. cloNIDine 2015-0 Yes Essential .3mg Take 1 H arris HCl 9-19 hypertensio tablet by [facility] ([facility]) 00:00: n, benign mouth 3 0.3 mg 00 times tablet daily Increased dose. cloNIDine 2015-0 Yes Essential .3mg Take 1 H arris HCl 9-19 hypertensio tablet by [facility] ([facility]) 00:00: n, benign mouth 3 0.3 mg 00 times tablet daily Increased dose. cloNIDine 2015- Yes Essential .3mg Take 1 H arris HCl 9-19 hypertensio tablet by [facility] ([facility]) 00:00: n, benign mouth 3 0.3 mg 00 times tablet daily Increased dose. cloNIDine 2015-0 Yes Essential .3mg Take 1 H arris HCl 9-19 hypertensio tablet by [facility] ([facility]) 00:00: n, benign mouth 3 0.3 mg 00 times tablet daily Increased dose. cloNIDine 2015-0 Yes Essential .3mg Take 1 H arris HCl 9-19 hypertensio tablet by [facility] ([facility]) 00:00: n, benign mouth 3 0.3 mg 00 times tablet daily Increased dose. cloNIDine 2016-0 Yes Essential .3mg Take 1 H arris HCl 9-19 hypertensio tablet by [facility] ([facility]) 00:00: n, benign mouth 3 0.3 mg 00 times tablet daily Increased dose. cloNIDine 2016-0 Yes Essential .3mg Take 1 H arris HCl 9-19 hypertensio tablet by [facility] ([facility]) 00:00: n, benign mouth 3 0.3 mg 00 times tablet daily Increased dose. cloNIDine 2015-0 Yes Essential .3mg Take 1 H arris HCl 9-19 hypertensio tablet by [facility] ([facility]) 00:00: n, benign mouth 3 0.3 mg 00 times tablet daily Increased dose. cloNIDine 2016-0 Yes Essential .3mg Take 1 H arris HCl 9-19 hypertensio tablet by [facility] ([facility]) 00:00: n, benign mouth 3 0.3 mg 00 times tablet daily Increased dose. cloNIDine 2016-0 Yes Essential .3mg Take 1 H arris HCl 9-19 hypertensio tablet by [facility] ([facility]) 00:00: n, benign mouth 3 0.3 mg 00 times tablet daily Increased dose. cloNIDine 2016-0 Yes Essential .3mg Take 1 H arris HCl 9-19 hypertensio tablet by [facility] ([facility]) 00:00: n, benign mouth 3 0.3 mg 00 times tablet daily Increased dose. ergocalcife 2015-0 Yes Vitamin D 70694D Take 1 [facility] rol 3-31 deficiency capsule by [facility] (VITAMIN 00:00: mouth D2) 50,000 00 weekly. unit capsule NIFEdipine 2015-0 Yes Essential 90mg QD Take 1 [facility] (PROCARDIA 3-31 hypertensio tablet by [facility]) 90 mg 00:00: n, benign mouth extended 00 daily release Discontinu tablet e Amlodipine . ergocalcife 2015-0 Yes Vitamin D [id number] Take 1 [facility] rol 3-31 deficiency capsule by [facility] (VITAMIN 00:00: mouth D2) 50,000 00 weekly. unit capsule NIFEdipine 2015-0 Yes Essential 90mg QD Take 1 [facility] (PROCARDIA 3-31 hypertensio tablet by [facility]) 90 mg 00:00: n, benign mouth extended 00 daily release Discontinu tablet e Amlodipine . ergocalcife 2016-0 Yes Vitamin D [id number] Take 1 [facility] rol 3-31 deficiency capsule by [facility] (VITAMIN 00:00: mouth D2) 50,000 00 weekly. unit capsule NIFEdipine 2016-0 Yes Essential 90mg QD Take 1 [facility] (PROCARDIA 3-31 hypertensio tablet by [facility]) 90 mg 00:00: n, benign mouth extended 00 daily release Discontinu tablet e Amlodipine . ergocalcife 2016-0 Yes Vitamin D [id number] Take 1 [facility] rol 3-31 deficiency capsule by [facility] (VITAMIN 00:00: mouth D2) 50,000 00 weekly. unit capsule NIFEdipine 2016-0 Yes Essential 90mg QD Take 1 [facility] (PROCARDIA 3-31 hypertensio tablet by [facility]) 90 mg 00:00: n, benign mouth extended 00 daily release Discontinu tablet e Amlodipine . ergocalcife 0 Yes Vitamin D [id number] Take 1 [facility] rol 3-31 deficiency capsule by [facility] (VITAMIN 00:00: mouth D2) 50,000 00 weekly. unit capsule NIFEdipine 0 Yes Essential 90mg QD Take 1 [facility] (PROCARDIA 3-31 hypertensio tablet by [facility]) 90 mg 00:00: n, benign mouth extended 00 daily release Discontinu tablet e Amlodipine . ergocalcife Yes Vitamin D [id number] Take 1 [facility] rol 3-31 deficiency capsule by [facility] (VITAMIN 00:00: mouth D2) 50,000 00 weekly. unit capsule NIFEdipine 0 Yes Essential 90mg QD Take 1 [facility] (PROCARDIA 3-31 hypertensio tablet by [facility]) 90 mg 00:00: n, benign mouth extended 00 daily release Discontinu tablet e Amlodipine . ergocalcife Yes Vitamin D [id number] Take 1 [facility] rol 3-31 deficiency capsule by [facility] (VITAMIN 00:00: mouth D2) 50,000 00 weekly. unit capsule NIFEdipine 0 Yes Essential 90mg QD Take 1 [facility] (PROCARDIA 3-31 hypertensio tablet by [facility]) 90 mg 00:00: n, benign mouth extended 00 daily release Discontinu tablet e Amlodipine . ergocalcife Yes Vitamin D [id number] Take 1 [facility] rol 3-31 deficiency capsule by [facility] (VITAMIN 00:00: mouth D2) 50,000 00 weekly. unit capsule NIFEdipine 0 Yes Essential 90mg QD Take 1 [facility] (PROCARDIA 3-31 hypertensio tablet by [facility]) 90 mg 00:00: n, benign mouth extended 00 daily release Discontinu tablet e Amlodipine . ergocalcife 2015-0 Yes Vitamin D [id number] Take 1 [facility] rol 3-31 deficiency capsule by [facility] (VITAMIN 00:00: mouth D2) 50,000 00 weekly. unit capsule NIFEdipine 0 Yes Essential 90mg QD Take 1 [facility] (PROCARDIA 3-31 hypertensio tablet by [facility]) 90 mg 00:00: n, benign mouth extended 00 daily release Discontinu tablet e Amlodipine . ergocalcife Yes Vitamin D [id number] Take 1 [facility] rol 3-31 deficiency capsule by [facility] (VITAMIN 00:00: mouth D2) 50,000 00 weekly. unit capsule NIFEdipine Yes Essential 90mg QD Take 1 [facility] (PROCARDIA 3-31 hypertensio tablet by [facility]) 90 mg 00:00: n, benign mouth extended 00 daily release Discontinu tablet e Amlodipine . ergocalcife Yes Vitamin D [id number] Take 1 Warner rol 3-31 deficiency capsule by [facility] (VITAMIN 00:00: mouth D2) 50,000 00 weekly. unit capsule NIFEdipine Yes Essential 90mg QD Take 1 [facility] (PROCARDIA 3-31 hypertensio tablet by [facility]) 90 mg 00:00: n, benign mouth extended 00 daily release Discontinu tablet e Amlodipine . cetirizine 2014-03 Yes Other 10mg QD Take 1 [facility] (ZYRTEC) 10 0-22 allergic tablet by [facility] tablet 00:00: rhinitis mouth 00 daily. cetirizine 2014-03 Yes Other 10mg QD Take 1 [facility] is (ZYRTEC) 10 0-22 allergic tablet by [facility] tablet 00:00: rhinitis mouth 00 daily. cetirizine 2014-03 Yes Other 10mg QD Take 1 [facility] (ZYRTEC) 10 0-22 allergic tablet by [facility] tablet 00:00: rhinitis mouth 00 daily. cetirizine 2014-03 Yes Other 10mg QD Take 1 [facility] is (ZYRTEC) 10 0-22 allergic tablet by [facility] tablet 00:00: rhinitis mouth 00 daily. cetirizine 2014-03 Yes Other 10mg QD Take 1 [facility] (ZYRTEC) 10 0-22 allergic tablet by [facility] tablet 00:00: rhinitis mouth 00 daily. cetirizine 2014-03 Yes Other 10mg QD Take 1 [facility] (ZYRTEC) 10 0-22 allergic tablet by [facility] tablet 00:00: rhinitis mouth 00 daily. cetirizine 2014-03 Yes Other 10mg QD Take 1 [facility] (ZYRTEC) 10 0-22 allergic tablet by [facility] tablet 00:00: rhinitis mouth 00 daily. cetirizine 2014-03 Yes Other 10mg QD Take 1 [facility] (ZYRTEC) 10 0-22 allergic tablet by [facility] tablet 00:00: rhinitis mouth 00 daily. cetirizine 2014-03 Yes Other 10mg QD Take 1 [facility] (ZYRTEC) 10 0-22 allergic tablet by [facility] tablet 00:00: rhinitis mouth 00 daily. cetirizine 2014-03 Yes Other 10mg QD Take 1 [facility] (ZYRTEC) 10 0-22 allergic tablet by [facility] tablet 00:00: rhinitis mouth 00 daily. cetirizine 2014-03 Yes Other 10mg QD Take 1 [facility] (ZYRTEC) 10 0-22 allergic tablet by [facility] tablet 00:00: rhinitis mouth 00 daily. clonazepam clonazepam No 1 Q1D clonazepam [facility] 0.5 mg 0.5 mg 0.5 mg Medical tablet Take tablet Take tablet 1 tablet 1 tablet Take 1 every day every day tablet by oral by oral every day route at route at by oral bedtime for bedtime for route at 30 days. 30 days. bedtime for 30 days. Eliquis 5 Eliquis 5 No Eliquis 5 [facility] mg tablet mg tablet mg tablet Medical TAKE 1 TAKE 1 TAKE 1 TABLET BY TABLET BY TABLET BY MOUTH TWICE MOUTH TWICE MOUTH DAILY DAILY TWICE DAILY ergocalcife ergocalcife No ergocalcif [facility] rol rol iqan Medical (vitamin (vitamin (vitamin D2) 1,250 D2) 1,250 D2) 1,250 mcg (50,000 mcg (50,000 mcg unit) unit) (50,000 capsule capsule unit) capsule hydralazine hydralazine No 1 TID hydralazin [facility] 100 mg 100 mg e 100 mg Medical tablet Take tablet Take tablet 1 tablet 3 1 tablet 3 Take 1 times a day times a day tablet 3 by oral by oral times a route for route for day by 30 days. 30 days. oral route for 30 days. lacosamide lacosamide No lacosamide [facility] 200 mg 200 mg 200 mg Medical tablet GIVE tablet GIVE tablet 1 TABLET 1 TABLET GIVE 1 VIA GTUBE VIA GTUBE TABLET VIA ONCE A DAY ONCE A DAY GTUBE ONCE AFTER AFTER A DAY HEMODIALYSI HEMODIALYSI AFTER S ON MWF S ON MWF HEMODIALYS IS ON MWF levetiracet levetiracet No 1000mg Q1D levetirace [facility] am 100 am 100 valente 100 Medical mg/mL oral mg/mL oral mg/mL oral solution solution solution Take 1000 Take 1000 Take 1000 mg every mg every mg every day by oral day by oral day by route for route for oral route 30 days. 30 days. for 30 days. metoprolol metoprolol No 1 BID metoprolol [facility] tartrate tartrate tartrate Med ical 100 mg 100 mg 100 mg tablet Take tablet Take tablet 1 tablet 1 tablet Take 1 twice a day twice a day tablet by oral by oral twice a route for route for day by 30 days. 30 days. oral route for 30 days. Neupro 6 Neupro 6 No Neupro 6 Zeynep via mg/24 hour mg/24 hour mg/24 hour Medical transdermal transdermal transderma 24 hour 24 hour l [address] patch 1 PATCH [address] 1 TRANSDERMAL TRANSDERMAL PATCH LY ONCE LY ONCE TRANSDERMA DAILY DAILY LLY ONCE DAILY pravastatin pravastatin No 1 Q1D pravastati [facility] 20 mg 20 mg n 20 mg Medical tablet Take tablet Take tablet 1 tablet 1 tablet Take 1 every day every day tablet by oral by oral every day route for route for by oral 30 days. 30 days. route for 30 days. sevelamer sevelamer No sevelamer [facility] carbonate carbonate carbonate Medical 2.4 gram 2.4 gram 2.4 gram oral powder oral powder oral packet MIX packet MIX powder 1 PACKET 1 PACKET packet MIX AND DRINK AND DRINK 1 PACKET THREE TIMES THREE TIMES AND DRINK DAILY DAILY THREE TIMES DAILY topiramate topiramate No 1 BID topiramate [facility] 50 mg 50 mg 50 mg Medical tablet Take tablet Take tablet 1 tablet 1 tablet Take 1 twice a day twice a day tablet by oral by oral twice a route for route for day by 30 days. 30 days. oral route for 30 days. valproic valproic No valproic Zeynep via acid (as acid (as acid (as Med ical sodium sodium sodium salt) 250 salt) 250 salt) 250 mg/5 mL mg/5 mL mg/5 mL oral oral oral solution solution solution carbidopa carbidopa No carbidopa [facility] 25 25 25 Medical mg-levodopa mg-levodopa mg-levodop 100 mg 100 mg a 100 mg tablet TAKE tablet TAKE tablet 2 TABLETS 2 TABLETS TAKE 2 BY MOUTH BY MOUTH TABLETS BY THREE TIMES THREE TIMES MOUTH DAILY DAILY THREE TIMES DAILY clonazepam clonazepam No 1 Q1D clonazepam [facility] 0.5 mg 0.5 mg 0.5 mg Medical tablet Take tablet Take tablet 1 tablet 1 tablet Take 1 every day every day tablet by oral by oral every day route at route at by oral bedtime for bedtime for route at 30 days. 30 days. bedtime for 30 days. Eliquis 5 Eliquis 5 No Eliquis 5 [facility] mg tablet mg tablet mg tablet Medical TAKE 1 TAKE 1 TAKE 1 TABLET BY TABLET BY TABLET BY MOUTH TWICE MOUTH TWICE MOUTH DAILY DAILY TWICE DAILY ergocalcife ergocalcife No ergocalcif [facility] rol rol qian Medical (vitamin (vitamin (vitamin D2) 1,250 D2) 1,250 D2) 1,250 mcg (50,000 mcg (50,000 mcg unit) unit) (50,000 capsule capsule unit) capsule hydralazine hydralazine No 1 TID hydralazin [facility] 100 mg 100 mg e 100 mg Medical tablet Take tablet Take tablet 1 tablet 3 1 tablet 3 Take 1 times a day times a day tablet 3 by oral by oral times a route for route for day by 30 days. 30 days. oral route for 30 days. lacosamide lacosamide No lacosamide [facility] 200 mg 200 mg 200 mg Medical tablet GIVE tablet GIVE tablet 1 TABLET 1 TABLET GIVE 1 VIA GTUBE VIA GTUBE TABLET VIA ONCE A DAY ONCE A DAY GTUBE ONCE AFTER AFTER A DAY HEMODIALYSI HEMODIALYSI AFTER S ON [facility] S ON [facility] HEMODIALYS IS ON [facility] levetiracet levetiracet No 1000mg Q1D levetirace [facility] am 100 am 100 valente 100 Medical mg/mL oral mg/mL oral mg/mL oral solution solution solution Take 1000 Take 1000 Take 1000 mg every mg every mg every day by oral day by oral day by route for route for oral route 30 days. 30 days. for 30 days. metoprolol metoprolol No 1 BID metoprolol [facility] tartrate tartrate tartrate Med ical 100 mg 100 mg 100 mg tablet Take tablet Take tablet 1 tablet 1 tablet Take 1 twice a day twice a day tablet by oral by oral twice a route for route for day by 30 days. 30 days. oral route for 30 days. Neupro 6 Neupro 6 No Neupro 6 Zeynep via mg/24 hour mg/24 hour mg/24 hour Medical transdermal transdermal transderma 24 hour 24 hour l [address] patch 1 PATCH [address] 1 TRANSDERMAL TRANSDERMAL PATCH LY ONCE LY ONCE TRANSDERMA DAILY DAILY LLY ONCE DAILY pravastatin pravastatin No 1 Q1D pravastati [facility] 20 mg 20 mg n 20 mg Medical tablet Take tablet Take tablet 1 tablet 1 tablet Take 1 every day every day tablet by oral by oral every day route for route for by oral 30 days. 30 days. route for 30 days. sevelamer sevelamer No sevelamer [facility] carbonate carbonate carbonate Medical 2.4 gram 2.4 gram 2.4 gram oral powder oral powder oral packet MIX packet MIX powder 1 PACKET 1 PACKET packet MIX AND DRINK AND DRINK 1 PACKET THREE TIMES THREE TIMES AND DRINK DAILY DAILY THREE TIMES DAILY topiramate topiramate No 1 BID topiramate [facility] 50 mg 50 mg 50 mg Medical tablet Take tablet Take tablet 1 tablet 1 tablet Take 1 twice a day twice a day tablet by oral by oral twice a route for route for day by 30 days. 30 days. oral route for 30 days. valproic valproic No valproic Ze[facility]ep via acid (as acid (as acid (as Med ical sodium sodium sodium salt) 250 salt) 250 salt) 250 mg/5 mL mg/5 mL mg/5 mL oral oral oral solution solution solution carbidopa carbidopa No carbidopa [facility] 25 25 25 Medical mg-levodopa mg-levodopa mg-levodop 100 mg 100 mg a 100 mg tablet TAKE tablet TAKE tablet 2 TABLETS 2 TABLETS TAKE 2 BY MOUTH BY MOUTH TABLETS BY THREE TIMES THREE TIMES MOUTH DAILY DAILY THREE TIMES DAILY clonazepam clonazepam No 1 Q1D clonazepam [facility] 0.5 mg 0.5 mg 0.5 mg Medical tablet Take tablet Take tablet 1 tablet 1 tablet Take 1 every day every day tablet by oral by oral every day route at route at by oral bedtime for bedtime for route at 30 days. 30 days. bedtime for 30 days. Eliquis 5 Eliquis 5 No Eliquis 5 [facility] mg tablet mg tablet mg tablet Medical TAKE 1 TAKE 1 TAKE 1 TABLET BY TABLET BY TABLET BY MOUTH TWICE MOUTH TWICE MOUTH DAILY DAILY TWICE DAILY ergocalcife ergocalcife No ergocalcif [facility] rol rol qian [facility] (vitamin (vitamin (vitamin D2) 1,250 D2) 1,250 D2) 1,250 mcg (50,000 mcg (50,000 mcg unit) unit) (50,000 capsule capsule unit) capsule hydralazine hydralazine No 1 TID hydralazin [facility] 100 mg 100 mg e 100 mg Medical tablet Take tablet Take tablet 1 tablet 3 1 tablet 3 Take 1 times a day times a day tablet 3 by oral by oral times a route for route for day by 30 days. 30 days. oral route for 30 days. lacosamide lacosamide No lacosamide [facility] 200 mg 200 mg 200 mg Medical tablet GIVE tablet GIVE tablet 1 TABLET 1 TABLET GIVE 1 VIA GTUBE VIA GTUBE TABLET VIA ONCE A DAY ONCE A DAY GTUBE ONCE AFTER AFTER A DAY HEMODIALYSI HEMODIALYSI AFTER S ON MWF S ON [facility] HEMODIALYS IS ON [facility] levetiracet levetiracet No 1000mg Q1D levetirace [facility] am 100 am 100 valente 100 Medical mg/mL oral mg/mL oral mg/mL oral solution solution solution Take 1000 Take 1000 Take 1000 mg every mg every mg every day by oral day by oral day by route for route for oral route 30 days. 30 days. for 30 days. metoprolol metoprolol No 1 BID metoprolol [facility] tartrate tartrate tartrate Med ical 100 mg 100 mg 100 mg tablet Take tablet Take tablet 1 tablet 1 tablet Take 1 twice a day twice a day tablet by oral by oral twice a route for route for day by 30 days. 30 days. oral route for 30 days. Neupro 6 Neupro 6 No Neupro 6 Zeynep via mg/24 hour mg/24 hour mg/24 hour Medical transdermal transdermal transderma 24 hour 24 hour l [address] patch 1 PATCH [address] 1 TRANSDERMAL TRANSDERMAL PATCH LY ONCE LY ONCE TRANSDERMA DAILY DAILY LLY ONCE DAILY pravastatin pravastatin No 1 Q1D pravastati [facility] 20 mg 20 mg n 20 mg Medical tablet Take tablet Take tablet 1 tablet 1 tablet Take 1 every day every day tablet by oral by oral every day route for route for by oral 30 days. 30 days. route for 30 days. sevelamer sevelamer No sevelamer [facility] carbonate carbonate carbonate Medical 2.4 gram 2.4 gram 2.4 gram oral powder oral powder oral packet MIX packet MIX powder 1 PACKET 1 PACKET packet MIX AND DRINK AND DRINK 1 PACKET THREE TIMES THREE TIMES AND DRINK DAILY DAILY THREE TIMES DAILY topiramate topiramate No 1 BID topiramate [facility] 50 mg 50 mg 50 mg Medical tablet Take tablet Take tablet 1 tablet 1 tablet Take 1 twice a day twice a day tablet by oral by oral twice a route for route for day by 30 days. 30 days. oral route for 30 days. valproic valproic No valproic Ze[facility] via acid (as acid (as acid (as Med ical sodium sodium sodium salt) 250 salt) 250 salt) 250 mg/5 mL mg/5 mL mg/5 mL oral oral oral solution solution solution carbidopa carbidopa No carbidopa [facility] 25 25 25 Medical mg-levodopa mg-levodopa mg-levodop 100 mg 100 mg a 100 mg tablet TAKE tablet TAKE tablet 2 TABLETS 2 TABLETS TAKE 2 BY MOUTH BY MOUTH TABLETS BY THREE TIMES THREE TIMES MOUTH DAILY DAILY THREE TIMES DAILY clonazepam clonazepam No 1 Q1D clonazepam [facility] 0.5 mg 0.5 mg 0.5 mg Medical tablet Take tablet Take tablet 1 tablet 1 tablet Take 1 every day every day tablet by oral by oral every day route at route at by oral bedtime for bedtime for route at 30 days. 30 days. bedtime for 30 days. Eliquis 5 Eliquis 5 No Eliquis 5 [facility] mg tablet mg tablet mg tablet Medical TAKE 1 TAKE 1 TAKE 1 TABLET BY TABLET BY TABLET BY MOUTH TWICE MOUTH TWICE MOUTH DAILY DAILY TWICE DAILY ergocalcife ergocalcife No ergocalcif [facility] rol rol q[facility] (vitamin (vitamin (vitamin D2) 1,250 D2) 1,250 D2) 1,250 mcg (50,000 mcg (50,000 mcg unit) unit) (50,000 capsule capsule unit) capsule hydralazine hydralazine No 1 TID hydralazin [facility] 100 mg 100 mg e 100 mg Medical tablet Take tablet Take tablet 1 tablet 3 1 tablet 3 Take 1 times a day times a day tablet 3 by oral by oral times a route for route for day by 30 days. 30 days. oral route for 30 days. lacosamide lacosamide No 1 Q12H lacosamide [facility] 200 mg 200 mg 200 mg Medical tablet Take tablet Take tablet 1 tablet 1 tablet Take 1 every 12 every 12 tablet hours by hours by every 12 oral route oral route hours by for 30 for 30 oral route days. days. for 30 days. levetiracet levetiracet No 1000mg Q1D levetirace [facility] am 100 am 100 valente 100 Medical mg/mL oral mg/mL oral mg/mL oral solution solution solution Take 1000 Take 1000 Take 1000 mg every mg every mg every day by oral day by oral day by route for route for oral route 30 days. 30 days. for 30 days. metoprolol metoprolol No 1 BID metoprolol [facility] tartrate tartrate tartrate Med ical 100 mg 100 mg 100 mg tablet Take tablet Take tablet 1 tablet 1 tablet Take 1 twice a day twice a day tablet by oral by oral twice a route for route for day by 30 days. 30 days. oral route for 30 days. Neupro 6 Neupro 6 No Neupro 6 Zeynep via mg/24 hour mg/24 hour mg/24 hour Medical transdermal transdermal transderma 24 hour 24 hour l [address] patch 1 PATCH [address] 1 TRANSDERMAL TRANSDERMAL PATCH LY ONCE LY ONCE TRANSDERMA DAILY DAILY LLY ONCE DAILY pravastatin pravastatin No 1 Q1D pravastati [facility] 20 mg 20 mg n 20 mg Medical tablet Take tablet Take tablet 1 tablet 1 tablet Take 1 every day every day tablet by oral by oral every day route for route for by oral 30 days. 30 days. route for 30 days. sevelamer sevelamer No sevelamer [facility] carbonate carbonate carbonate Medical 2.4 gram 2.4 gram 2.4 gram oral powder oral powder oral packet MIX packet MIX powder 1 PACKET 1 PACKET packet MIX AND DRINK AND DRINK 1 PACKET THREE TIMES THREE TIMES AND DRINK DAILY DAILY THREE TIMES DAILY topiramate topiramate No 1 BID topiramate [facility] 50 mg 50 mg 50 mg Medical tablet Take tablet Take tablet 1 tablet 1 tablet Take 1 twice a day twice a day tablet by oral by oral twice a route for route for day by 30 days. 30 days. oral route for 30 days. valproic valproic No valproic Ze[facility] via acid (as acid (as acid (as Med ical sodium sodium sodium salt) 250 salt) 250 salt) 250 mg/5 mL mg/5 mL mg/5 mL oral oral oral solution solution solution carbidopa carbidopa No carbidopa [facility] 25 25 25 Medical mg-levodopa mg-levodopa mg-levodop 100 mg 100 mg a 100 mg tablet TAKE tablet TAKE tablet 2 TABLETS 2 TABLETS TAKE 2 BY MOUTH BY MOUTH TABLETS BY THREE TIMES THREE TIMES MOUTH DAILY DAILY THREE TIMES DAILY clonazepam clonazepam No 1 Q1D clonazepam [facility] 0.5 mg 0.5 mg 0.5 mg Medical tablet Take tablet Take tablet 1 tablet 1 tablet Take 1 every day every day tablet by oral by oral every day route at route at by oral bedtime for bedtime for route at 30 days. 30 days. bedtime for 30 days. Eliquis 5 Eliquis 5 No Eliquis 5 [facility] mg tablet mg tablet mg tablet Medical TAKE 1 TAKE 1 TAKE 1 TABLET BY TABLET BY TABLET BY MOUTH TWICE MOUTH TWICE MOUTH DAILY DAILY TWICE DAILY ergocalcife ergocalcife No ergocalcif [facility] rol q[facility] (vitamin (vitamin (vitamin D2) 1,250 D2) 1,250 D2) 1,250 mcg (50,000 mcg (50,000 mcg unit) unit) (50,000 capsule capsule unit) capsule hydralazine hydralazine No 1 TID hydralazin [facility] 100 mg 100 mg e 100 mg Medical tablet Take tablet Take tablet 1 tablet 3 1 tablet 3 Take 1 times a day times a day tablet 3 by oral by oral times a route for route for day by 30 days. 30 days. oral route for 30 days. lacosamide lacosamide No lacosamide [facility] 200 mg 200 mg 200 mg Medical tablet GIVE tablet GIVE tablet 1 TABLET 1 TABLET GIVE 1 VIA GTUBE VIA GTUBE TABLET VIA ONCE A DAY ONCE A DAY GTUBE ONCE AFTER AFTER A DAY HEMODIALYSI HEMODIALYSI AFTER S ON MWF S ON MWF HEMODIALYS IS ON [facility] levetiracet levetiracet No 1000mg Q1D levetirace [facility] am 100 am 100 valente 100 Medical mg/mL oral mg/mL oral mg/mL oral solution solution solution Take 1000 Take 1000 Take 1000 mg every mg every mg every day by oral day by oral day by route for route for oral route 30 days. 30 days. for 30 days. metoprolol metoprolol No 1 BID metoprolol [facility] tartrate tartrate tartrate Med ical 100 mg 100 mg 100 mg tablet Take tablet Take tablet 1 tablet 1 tablet Take 1 twice a day twice a day tablet by oral by oral twice a route for route for day by 30 days. 30 days. oral route for 30 days. Neupro 6 Neupro 6 No Neupro 6 Zeynep via mg/24 hour mg/24 hour mg/24 hour Medical transdermal transdermal transderma 24 hour 24 hour l [address]ACE patch 1 PATCH [address] 1 TRANSDERMAL TRANSDERMAL PATCH LY ONCE LY ONCE TRANSDERMA DAILY DAILY LLY ONCE DAILY Fluoxetine Fluoxetine Yes Eric 1 capsule Common HCl HCl Rodriguez [facility] Ferrous Ferrous Yes Eric 1 tablet Co mmon Sulfate Sulfate Rodriguez [facility] Vitamin C Vitamin C Yes Eric as Co mmon Rodriguez directed [facility] Pravastatin Pravastatin Yes Eric 1 tablet Common Sodium Sodium Rodriguez [facility] Sevelamer Sevelamer Yes Eric 1 packet Common Carbonate Carbonate Rodriguez mixed with Spirit 30 ml of - [facility] water with [facility] Vitamin B Vitamin B Yes Eric as Co mmon Complex Complex Rodriguez directed Spiri [facility] Doxazosin Doxazosin Yes Eric 1 tablet Common Mesylate Mesylate Rodriguez [facility] Eliquis Eliquis Yes Eric TAKE 1 Comm on Rodriguez TABLET BY [facility] MOUTH - [facility] TWICE St DAILY FOR [facility] 90 [facility] NIFEdipine NIFEdipine Yes Eric TAKE 1 Common ER ER Rodriguez TABLET BY [facility] MOUTH - [facility] EVERY [address] St HOURS [facility] Metformin Metformin Yes Eric 1 tablet Common HCl HCl Rodriguez with a [facility] meal [facility] Vitamin D-3 Vitamin D-3 Yes Eric as Common Rodriguez directed [facility] Melatonin Melatonin Yes Eric 1 capsule Common Rodriguez at bedtime [facility] as needed - [facility] with food [facility] Metformin Metformin Yes Eric 1 tablet Common HCl HCl Rodriguez with a [facility] meal [facility] Atenolol Atenolol Yes Eric 1 tablet Common Rodriguez [facility] Sevelamer Sevelamer No TID Sevelamer Carbonate Carbonate Carbonate 0.8 GM 0.8 GM 0.8 GM Ferrous Ferrous No 1{table QD Ferrous Sulfate 27 Sulfate 27 t} Sulfate 27 MG MG MG Vitamin B Vitamin B No Vitamin B Complex - Complex - Complex - Vitamin C Vitamin C No Vitamin C 500 MG 500 MG 500 MG metFORMIN metFORMIN No 1{table QD metFORMIN HCl 500 MG HCl 500 MG t_with_ HCl 500 MG a_meal} metFORMIN metFORMIN No 1{table QD metFORMIN HCl 500 MG HCl 500 MG t_with_ HCl 500 MG a_meal} Pravastatin Pravastatin No 1{table QD Pravastati Sodium 40 Sodium 40 t} n Sodium MG MG 40 MG Vitamin D-3 Vitamin D-3 No Vitamin 5000 UNIT 5000 UNIT D-3 5000 UNIT Atenolol 50 Atenolol 50 No 1{table Atenolol MG MG t} 50 MG Melatonin 5 Melatonin 5 No 1{capsu QD Melatonin MG MG le_at_b 5 MG edtime_ as_need ed_with _food} FLUoxetine FLUoxetine No 1{table QD FLUoxetine HCl 60 MG HCl 60 MG t} HCl 60 MG NIFEdipine NIFEdipine No NIFEdipine ER 90 MG ER 90 MG ER 90 MG Eliquis 5 Eliquis 5 No Eliquis 5 MG MG MG Doxazosin Doxazosin No 1{table QD Doxazosin Mesylate 8 Mesylate 8 t} Mesylate 8 MG MG MG pravastatin pravastatin No 1 Q1D pravastati [facility] 20 mg 20 mg n 20 mg Medical tablet Take tablet Take tablet 1 tablet 1 tablet Take 1 every day every day tablet by oral by oral every day route for route for by oral 30 days. 30 days. route for 30 days. sevelamer sevelamer No sevelamer [facility] carbonate carbonate carbonate Medical 2.4 gram 2.4 gram 2.4 gram oral powder oral powder oral packet MIX packet MIX powder 1 PACKET 1 PACKET packet MIX AND DRINK AND DRINK 1 PACKET THREE TIMES THREE TIMES AND DRINK DAILY DAILY THREE TIMES DAILY topiramate topiramate No 1 BID topiramate [facility] 50 mg 50 mg 50 mg Medical tablet Take tablet Take tablet 1 tablet 1 tablet Take 1 twice a day twice a day tablet by oral by oral twice a route for route for day by 30 days. 30 days. oral route for 30 days. valproic valproic No valproic Zeynep via acid (as acid (as acid (as Med ical sodium sodium sodium salt) 250 salt) 250 salt) 250 mg/5 mL mg/5 mL mg/5 mL oral oral oral solution solution solution carbidopa carbidopa No carbidopa [facility] 25 25 25 Medical mg-levodopa mg-levodopa mg-levodop 100 mg 100 mg a 100 mg tablet TAKE tablet TAKE tablet 2 TABLETS 2 TABLETS TAKE 2 BY MOUTH BY MOUTH TABLETS BY THREE TIMES THREE TIMES MOUTH DAILY DAILY THREE TIMES DAILY clonazepam clonazepam No 1 Q1D clonazepam [facility] 0.5 mg 0.5 mg 0.5 mg Medical tablet Take tablet Take tablet 1 tablet 1 tablet Take 1 every day every day tablet by oral by oral every day route at route at by oral bedtime for bedtime for route at 30 days. 30 days. bedtime for 30 days. Eliquis 5 Eliquis 5 No Eliquis 5 [facility] mg tablet mg tablet mg tablet Medical TAKE 1 TAKE 1 TAKE 1 TABLET BY TABLET BY TABLET BY MOUTH TWICE MOUTH TWICE MOUTH DAILY DAILY TWICE DAILY ergocalcife ergocalcife No ergocalcif [facility] rol rol qian Medical (vitamin (vitamin (vitamin D2) 1,250 D2) 1,250 D2) 1,250 mcg (50,000 mcg (50,000 mcg unit) unit) (50,000 capsule capsule unit) capsule hydralazine hydralazine No 1 TID hydralazin [facility] 100 mg 100 mg e 100 mg Medical tablet Take tablet Take tablet 1 tablet 3 1 tablet 3 Take 1 times a day times a day tablet 3 by oral by oral times a route for route for day by 30 days. 30 days. oral route for 30 days. lacosamide lacosamide No lacosamide [facility] 200 mg 200 mg 200 mg Medical tablet GIVE tablet GIVE tablet 1 TABLET 1 TABLET GIVE 1 VIA GTUBE VIA GTUBE TABLET VIA ONCE A DAY ONCE A DAY GTUBE ONCE AFTER AFTER A DAY HEMODIALYSI HEMODIALYSI AFTER S ON [facility] S ON [facility] HEMODIALYS IS ON [facility] levetiracet levetiracet No 1000mg Q1D levetirace [facility] am 100 am 100 valente 100 Medical mg/mL oral mg/mL oral mg/mL oral solution solution solution Take 1000 Take 1000 Take 1000 mg every mg every mg every day by oral day by oral day by route for route for oral route 30 days. 30 days. for 30 days. metoprolol metoprolol No 1 BID metoprolol [facility] tartrate tartrate tartrate Med ical 100 mg 100 mg 100 mg tablet Take tablet Take tablet 1 tablet 1 tablet Take 1 twice a day twice a day tablet by oral by oral twice a route for route for day by 30 days. 30 days. oral route for 30 days. Neupro 6 Neupro 6 No Neupro 6 Zeynep via mg/24 hour mg/24 hour mg/24 hour Medical transdermal transdermal transderma 24 hour 24 hour l [address] patch 1 PATCH [address] 1 TRANSDERMAL TRANSDERMAL PATCH LY ONCE LY ONCE TRANSDERMA DAILY DAILY LLY ONCE DAILY pravastatin pravastatin No 1 Q1D pravastati [facility] 20 mg 20 mg n 20 mg Medical tablet Take tablet Take tablet 1 tablet 1 tablet Take 1 every day every day tablet by oral by oral every day route for route for by oral 30 days. 30 days. route for 30 days. sevelamer sevelamer No sevelamer [facility] carbonate carbonate carbonate Medical 2.4 gram 2.4 gram 2.4 gram oral powder oral powder oral packet MIX packet MIX powder 1 PACKET 1 PACKET packet MIX AND DRINK AND DRINK 1 PACKET THREE TIMES THREE TIMES AND DRINK DAILY DAILY THREE TIMES DAILY topiramate topiramate No 1 BID topiramate [facility] 50 mg 50 mg 50 mg Medical tablet Take tablet Take tablet 1 tablet 1 tablet Take 1 twice a day twice a day tablet by oral by oral twice a route for route for day by 30 days. 30 days. oral route for 30 days. valproic valproic No valproic Ze[facility]ep via acid (as acid (as acid (as Med ical sodium sodium sodium salt) 250 salt) 250 salt) 250 mg/5 mL mg/5 mL mg/5 mL oral oral oral solution solution solution carbidopa carbidopa No carbidopa [facility] 25 25 25 Medical mg-levodopa mg-levodopa mg-levodop 100 mg 100 mg a 100 mg tablet TAKE tablet TAKE tablet 2 TABLETS 2 TABLETS TAKE 2 BY MOUTH BY MOUTH TABLETS BY THREE TIMES THREE TIMES MOUTH DAILY DAILY THREE TIMES DAILY clonazepam clonazepam No 1 Q1D clonazepam [facility] 0.5 mg 0.5 mg 0.5 mg Medical tablet Take tablet Take tablet 1 tablet 1 tablet Take 1 every day every day tablet by oral by oral every day route at route at by oral bedtime for bedtime for route at 30 days. 30 days. bedtime for 30 days. Eliquis 5 Eliquis 5 No Eliquis 5 [facility] mg tablet mg tablet mg tablet Medical TAKE 1 TAKE 1 TAKE 1 TABLET BY TABLET BY TABLET BY MOUTH TWICE MOUTH TWICE MOUTH DAILY DAILY TWICE DAILY ergocalcife ergocalcife No ergocalcif [facility] rol rol qian Medical (vitamin (vitamin (vitamin D2) 1,250 D2) 1,250 D2) 1,250 mcg (50,000 mcg (50,000 mcg unit) unit) (50,000 capsule capsule unit) capsule hydralazine hydralazine No 1 TID hydralazin [facility] 100 mg 100 mg e 100 mg Medical tablet Take tablet Take tablet 1 tablet 3 1 tablet 3 Take 1 times a day times a day tablet 3 by oral by oral times a route for route for day by 30 days. 30 days. oral route for 30 days. lacosamide lacosamide No lacosamide [facility] 200 mg 200 mg 200 mg Medical tablet GIVE tablet GIVE tablet 1 TABLET 1 TABLET GIVE 1 VIA GTUBE VIA GTUBE TABLET VIA ONCE A DAY ONCE A DAY GTUBE ONCE AFTER AFTER A DAY HEMODIALYSI HEMODIALYSI AFTER S ON MW S ON [facility] HEMODIALYS IS ON [facility] levetiracet levetiracet No 1000mg Q1D levetirace [facility] am 100 am 100 valente 100 Medical mg/mL oral mg/mL oral mg/mL oral solution solution solution Take 1000 Take 1000 Take 1000 mg every mg every mg every day by oral day by oral day by route for route for oral route 30 days. 30 days. for 30 days. metoprolol metoprolol No 1 BID metoprolol [facility] tartrate tartrate tartrate Med ical 100 mg 100 mg 100 mg tablet Take tablet Take tablet 1 tablet 1 tablet Take 1 twice a day twice a day tablet by oral by oral twice a route for route for day by 30 days. 30 days. oral route for 30 days. Neupro 6 Neupro 6 No Neupro 6 Zeynep via mg/24 hour mg/24 hour mg/24 hour Medical transdermal transdermal transderma 24 hour 24 hour l [address]ACE patch 1 PATCH [address] 1 TRANSDERMAL TRANSDERMAL PATCH LY ONCE LY ONCE TRANSDERMA DAILY DAILY LLY ONCE DAILY pravastatin pravastatin No 1 Q1D pravastati [facility] 20 mg 20 mg n 20 mg Medical tablet Take tablet Take tablet 1 tablet 1 tablet Take 1 every day every day tablet by oral by oral every day route for route for by oral 30 days. 30 days. route for 30 days. sevelamer sevelamer No sevelamer [facility] carbonate carbonate carbonate Medical 2.4 gram 2.4 gram 2.4 gram oral powder oral powder oral packet MIX packet MIX powder 1 PACKET 1 PACKET packet MIX AND DRINK AND DRINK 1 PACKET THREE TIMES THREE TIMES AND DRINK DAILY DAILY THREE TIMES DAILY topiramate topiramate No 1 BID topiramate [facility] 50 mg 50 mg 50 mg Medical tablet Take tablet Take tablet 1 tablet 1 tablet Take 1 twice a day twice a day tablet by oral by oral twice a route for route for day by 30 days. 30 days. oral route for 30 days. valproic valproic No valproic Ze[facility]ep via acid (as acid (as acid (as Med ical sodium sodium sodium salt) 250 salt) 250 salt) 250 mg/5 mL mg/5 mL mg/5 mL oral oral oral solution solution solution carbidopa carbidopa No carbidopa [facility] 25 25 25 Medical mg-levodopa mg-levodopa mg-levodop 100 mg 100 mg a 100 mg tablet TAKE tablet TAKE tablet 2 TABLETS 2 TABLETS TAKE 2 BY MOUTH BY MOUTH TABLETS BY THREE TIMES THREE TIMES MOUTH DAILY DAILY THREE TIMES DAILY Immunizations Ordered Immunization Filled Immunization Date Status Commen ts Source Name Name Influenza, seasonal, 2022-01-30 Completed [facility] injectable 00:00:00 influenza, seasonal, influenza, seasonal, 2016-01-21 Completed [facility] injectable, injectable, 00:00:00 preservative free preservative free influenza, seasonal, influenza, seasonal, 2016-01-21 Completed [facility] injectable, injectable, 00:00:00 preservative free preservative free influenza, seasonal, influenza, seasonal, 2016-01-21 Completed [facility] injectable, injectable, 00:00:00 preservative free preservative free influenza, seasonal, influenza, seasonal, 2016-01-21 Completed [facility] injectable, injectable, 00:00:00 preservative free preservative free influenza, seasonal, influenza, seasonal, 2016-01-21 Completed [facility] injectable, injectable, 00:00:00 preservative free preservative free influenza, seasonal, influenza, seasonal, 2016-01-21 Completed [facility] injectable, injectable, 00:00:00 preservative free preservative free influenza, seasonal, influenza, seasonal, 2016-01-21 Completed [facility] injectable, injectable, 00:00:00 preservative free preservative free Influenza Vaccine 2016-01-21 Completed [facility] 00:00:00 Influenza Vaccine 2016-01-21 Completed [facility] 00:00:00 Influenza Vaccine 2016-01-21 Completed [facility] 00:00:00 Influenza Vaccine 2016-01-21 Completed [facility] 00:00:00 Influenza Vaccine 2016-01-21 Completed [facility] 00:00:00 Influenza Vaccine 2016-01-21 Completed [facility] 00:00:00 Influenza Vaccine 2016-01-21 Completed [facility] 00:00:00 Influenza Vaccine 2016-01-21 Completed [facility] 00:00:00 Influenza Vaccine 2016-01-21 Completed [facility] 00:00:00 Influenza Vaccine 2016-01-21 Completed [facility] 00:00:00 Influenza Pre-Epic 2016-01-[address] [facility] Influenza Three-TIV 2016-01-21 Com[facility]00 [facility] Influenza Pre-Epic 2016-01-[address] [facility] 00[facility]00:00 [facility] Influenza Three-TIV 2016-01-21 Completed [facility]00 [facility] Influenza Vaccine 2016-01-21 Completed [facility] 00:00:00 Influenza Pre-Epic 2016-01-[address] [facility] 00:00:00 [facility] Influenza Three-TIV 2016-01-21 Completed [facility]00 [facility] Influenza 2016-01-21 Completed [facility] (Preservative Free) 00:00:00 of Me dicine Influenza 2016-01-21 Completed [facility] (Preservative Free) 00:00:00 [facility] Me [facility]icine Influenza 2016-01-21 Completed [facility] (Preservative Free) 00:00:00 of Me dicine influenza, seasonal, influenza, seasonal, 2015-01-14 Completed [facility] injectable, injectable, 00:00:00 preservative free preservative free pneumococcal pneumococcal 2015-01-14 Completed [facility] conjugate PCV 13 conjugate PCV 13 00:00:00 influenza, seasonal, influenza, seasonal, 2015-01-14 Completed [facility] injectable, injectable, 00:00:00 preservative free preservative free pneumococcal pneumococcal 2015-01-14 Completed [facility] conjugate PCV 13 conjugate PCV 13 00:00:00 influenza, seasonal, influenza, seasonal, 2015-01-14 Completed [facility] injectable, injectable, 00:00:00 preservative free preservative free pneumococcal pneumococcal 2015-01-14 Completed [facility] conjugate PCV 13 conjugate PCV 13 00:00:00 influenza, seasonal, influenza, seasonal, 2015-01-14 Completed [facility] injectable, injectable, 00:00:00 preservative free preservative free pneumococcal pneumococcal 2015-01-14 Completed [facility] conjugate PCV 13 conjugate PCV 13 00:00:00 influenza, seasonal, influenza, seasonal, 2015-01-14 Completed [facility] injectable, injectable, 00:00:00 preservative free preservative free pneumococcal pneumococcal 2015-01-14 Completed [facility] conjugate PCV 13 conjugate PCV 13 00:00:00 influenza, seasonal, influenza, seasonal, 2015-01-14 Completed [facility] injectable, injectable, 00:00:00 preservative free preservative free pneumococcal pneumococcal 2015-01-14 Completed [facility] conjugate PCV 13 conjugate PCV 13 00:00:00 influenza, seasonal, influenza, seasonal, 2015-01-14 Completed [facility] injectable, injectable, 00:00:00 preservative free preservative free pneumococcal pneumococcal 2015-01-14 Completed [facility] conjugate PCV 13 conjugate PCV 13 00:00:00 Influenza Vaccine 2015-01-14 Completed [facility] 00:00:00 Pneumococcal 2015-01-14 Completed [facility] 13-valent conj 0.5 00:00:00 mL injection Influenza Vaccine 2015-01-14 Completed [facility] 00:00:00 Pneumococcal 2015-01-14 Completed [facility] 13-valent conj 0.5 00:00:00 mL injection Influenza Vaccine 2015-01-14 Completed [facility] 00:00:00 Pneumococcal 2015-01-14 Completed [facility] 13-valent conj 0.5 00:00:00 mL injection Influenza Vaccine 2015-01-14 Completed [facility] 00:00:00 Pneumococcal 2015-01-14 Completed [facility] 13-valent conj 0.5 00:00:00 mL injection Influenza Vaccine 2015-01-14 Completed [facility] 00:00:00 Pneumococcal 2015-01-14 Completed [facility] 13-valent conj 0.5 00:00:00 mL injection Influenza Vaccine 2015-01-14 Completed [facility] 00:00:00 Pneumococcal 2015-01-14 Completed [facility] 13-valent conj 0.5 00:00:00 mL injection Influenza Vaccine 2015-01-14 Completed [facility] 00:00:00 Pneumococcal 2015-01-14 Completed [facility] 13-valent conj 0.5 00:00:00 mL injection Influenza Vaccine 2015-01-14 Completed [facility] 00:00:00 Pneumococcal 2015-01-14 Completed [facility] 13-valent conj 0.5 00:00:00 mL injection Influenza Vaccine 2015-01-14 Completed [facility] 00:00:00 Pneumococcal 2015-01-14 Com[facility] 13-valent conj 0.5 00:00:00 mL injection Influenza Vaccine 2015-01-14 Completed [facility] 00:00:00 Pneumococcal 2015-01-14 Completed [facility] 13-valent conj 0.5 00:00:00 mL injection Influenza Pre-Epic 2015-01-[address] [facility] 00:00:00 [facility] Pneumococcal 2015-01-[address] [facility] Conjugate (Prevnar) 00:00:00 [facility] 13-Valent Influenza Three-TIV 2015-01-14 Completed [facility] YR 00:00:00 [facility] Pneumococcal 2015-01-[address] [facility] Conjugate (Prevnar) 00:00:00 [facility] 13-Valent Influenza Pre-Epic 2015-01-[address] [facility] 00:00:00 [facility] Pneumococcal 2015-01-[address] [facility] Conjugate (Prevnar) 00:00:00 [facility] 13-Valent Influenza Three-TIV 2015-01-14 Completed [facility] YR 00:00:00 [facility] Pneumococcal 2015-01-[address] [facility] Conjugate (Prevnar) 00:00:00 [facility] 13-Valent Influenza Vaccine 2015-01-14 Completed [facility] 00:00:00 Pneumococcal 2015-01-14 Completed [facility] 13-valent conj 0.5 00:00:00 mL injection Influenza Pre-Epic 2015-01-[address] [facility] 00:00:00 [facility] Pneumococcal 2015-01-[address] [facility] Conjugate (Prevnar) 00:00:00 [facility] 13-Valent Influenza Three-TIV 2015-01-14 Completed [facility]+ YR 00:00:00 [facility] Pneumococcal 2015-01-[address] [facility] Conjugate (Prevnar) 00:00:00 [facility] 13-Valent Influenza 2015-01-14 Completed [facility] (Preservative Free) 00:00:00 [facility] Pneumococcal 2015-01-14 Completed [facility] 13-valent Conjugate 00:00:00 [facility] Vaccine Influenza 2015-01-14 Completed [facility] (Preservative Free) 00:00:00 [facility]icine Pneumococcal 2015-01-14 Completed [facility] 13-valent Conjugate 00:00:00 of Me dicine Vaccine Influenza 2015-01-14 Completed [facility] (Preservative Free) 00:00:00 [facility] Pneumococcal 2015-01-14 Completed [facility] 13-valent Conjugate 00:00:00 [facility]icine Vaccine influenza, seasonal, influenza, seasonal, 2014-02-09 Completed [facility] injectable, injectable, 00:00:00 preservative free preservative free influenza, seasonal, influenza, seasonal, 2014-02-09 Completed [facility] injectable, injectable, 00:00:00 preservative free preservative free influenza, seasonal, influenza, seasonal, 2014-02-09 Completed [facility] injectable, injectable, 00:00:00 preservative free preservative free influenza, seasonal, influenza, seasonal, 2014-02-09 Completed [facility] injectable, injectable, 00:00:00 preservative free preservative free influenza, seasonal, influenza, seasonal, 2014-02-09 Completed [facility] injectable, injectable, 00:00:00 preservative free preservative free influenza, seasonal, influenza, seasonal, 2014-02-09 Completed [facility] injectable, injectable, 00:00:00 preservative free preservative free influenza, seasonal, influenza, seasonal, 2014-02-09 Completed [facility] injectable, injectable, 00:00:00 preservative free preservative free Influenza Vaccine 2014-02-09 Completed [email or web address] 00:00:00 Influenza Vaccine 2014-02-09 Completed [email or web address] 00:00:00 Influenza Vaccine 2014-02-09 Completed [email or web address] 00:00:00 Influenza Vaccine 2014-02-09 Completed [email or web address] 00:00:00 Influenza Vaccine 2014-02-09 Completed [email or web address] 00:00:00 Influenza Vaccine 2014-02-09 Completed [facility] 00:00:00 Influenza Vaccine 2014-02-09 Completed [email or web address] 00:00:00 Influenza Vaccine 2014-02-09 Completed [email or web address] 00:00:00 Influenza Vaccine 2014-02-09 Completed [email or web address] 00:00:00 Influenza Vaccine 2014-02-09 Completed [facility] 00:00:00 Influenza Pre-Epic 2014-02-[address] [facility] Influenza Three-TIV 2014-02-09 Com[facility]00 [facility] Influenza Pre-Epic 2014-02-[address] [facility] 00:00:00 [facility] Influenza Three-TIV 2014-02-09 Completed [facility]00 [facility] Influenza Vaccine 2014-02-09 Completed [facility] 00:00:00 Influenza Pre-Epic 2014-02-[address] [facility] 00:00:00 [facility] Influenza Three-TIV 2014-02-09 Completed [facility]:00 [facility] Influenza 2014-02-09 Completed [facility] (Preservative Free) 00:00:00 of Me dicine Influenza 2014-02-09 Completed [facility] (Preservative Free) 00:00:00 of Me dicine Influenza 2014-02-09 Completed [facility] (Preservative Free) 00:00:00 of Me dicine influenza, seasonal, influenza, seasonal, 2013-01-20 Completed [facility] injectable, injectable, 00:00:00 preservative free preservative free influenza, seasonal, influenza, seasonal, 2013-01-20 Completed [facility] injectable, injectable, 00:00:00 preservative free preservative free influenza, seasonal, influenza, seasonal, 2013-01-20 Completed [facility] injectable, injectable, 00:00:00 preservative free preservative free influenza, seasonal, influenza, seasonal, 2013-01-20 Completed [facility] injectable, injectable, 00:00:00 preservative free preservative free influenza, seasonal, influenza, seasonal, 2013-01-20 Completed [facility] injectable, injectable, 00:00:00 preservative free preservative free influenza, seasonal, influenza, seasonal, 2013-01-20 Completed [facility] injectable, injectable, 00:00:00 preservative free preservative free influenza, seasonal, influenza, seasonal, 2013-01-20 Completed [facility] injectable, injectable, 00:00:00 preservative free preservative free Influenza Vaccine 2013-01-20 Completed [facility] 00:00:00 Influenza Vaccine 2013-01-20 Completed [facility] 00:00:00 Influenza Vaccine 2013-01-20 Completed [facility] 00:00:00 Influenza Vaccine 2013-01-20 Completed [facility] 00:00:00 Influenza Vaccine 2013-01-20 Completed [facility] 00:00:00 Influenza Vaccine 2013-01-20 Completed [facility] 00:00:00 Influenza Vaccine 2013-01-20 Completed [facility] 00:00:00 Influenza Vaccine 2013-01-20 Completed [facility] 00:00:00 Influenza Vaccine 2013-01-20 Completed [facility] 00:00:00 Influenza Vaccine 2013-01-20 Completed [facility] 00:00:00 Influenza Pre-Epic 2013-01-[address] [facility] Three-TIV 2013-01-20 Com[facility]R [facility] Influenza Pre-Epic 2013-01-[address] [facility] Influenza Three-TIV 2013-01-20 Completed [facility] Influenza Vaccine 2013-01-20 Completed [facility] 00:00:00 Influenza Pre-Epic 2013-01-[address] [facility] Influenza Three-TIV 2013-01-20 Completed [facility] Influenza 2013-01-20 Completed [facility] (Preservative Free) [facility] Influenza 2013-01-20 Completed [facility] (Preservative Free) 00:00:[facility] Influenza 2013-01-20 Completed [facility] (Preservative Free) 00:00:00 [facility] influenza, seasonal, influenza, seasonal, 2010-12-16 Completed [facility] injectable, injectable, 00:00:00 preservative free preservative free influenza, seasonal, influenza, seasonal, 2010-12-16 Completed [facility] injectable, injectable, 00:00:00 preservative free preservative free influenza, seasonal, influenza, seasonal, 2010-12-16 Completed [facility] injectable, injectable, 00:00:00 preservative free preservative free influenza, seasonal, influenza, seasonal, 2010-12-16 Completed [facility] injectable, injectable, 00:00:00 preservative free preservative free influenza, seasonal, influenza, seasonal, 2010-12-16 Completed [facility] injectable, injectable, 00:00:00 preservative free preservative free influenza, seasonal, influenza, seasonal, 2010-12-16 Completed [facility] injectable, injectable, 00:00:00 preservative free preservative free influenza, seasonal, influenza, seasonal, 2010-12-16 Completed [facility] injectable, injectable, 00:00:00 preservative free preservative free Influenza Vaccine 2010-12-16 Completed [facility] 00:00:00 Influenza Vaccine 2010-12-16 Completed [facility] 00:00:00 Influenza Vaccine 2010-12-16 Completed [facility] 00:00:00 Influenza Vaccine 2010-12-16 Completed [facility] 00:00:00 Influenza Vaccine 2010-12-16 Completed [facility] 00:00:00 Influenza Vaccine 2010-12-16 Completed [facility] 00:00:00 Influenza Vaccine 2010-12-16 Completed [facility] 00:00:00 Influenza Vaccine 2010-12-16 Completed [facility] 00:00:00 Influenza Vaccine 2010-12-16 Completed [facility] 00:00:00 Influenza Vaccine 2010-12-16 Completed [facility] 00:00:00 Influenza Pre-Epic 2010-12-[address] [facility] Influenza Three-TIV 2010-12-16 Com[facility] Influenza Pre-Epic 2010-12-[address] [facility] Influenza Three-TIV 2010-12-16 Completed [facility]00 [facility] Influenza Vaccine 2010-12-16 Completed [facility] 00:00:00 Influenza Pre-Epic 2010-12-[address] [facility] 00:[facility]00 [facility] Influenza Three-TIV 2010-12-16 Completed [facility]00 [facility] Influenza 2010-12-16 Completed [facility] (Preservative Free) 00:00:00 [facility] Influenza 2010-12-16 Completed [facility] (Preservative Free) 00:00:00 [facility] Influenza 2010-12-16 Completed [facility] (Preservative Free) 00:00:00 [facility] influenza, seasonal, influenza, seasonal, 2010-02-28 Completed [facility] injectable, injectable, 00:00:00 preservative free preservative free influenza, seasonal, influenza, seasonal, 2010-02-28 Completed [facility] injectable, injectable, 00:00:00 preservative free preservative free influenza, seasonal, influenza, seasonal, 2010-02-28 Completed [facility] injectable, injectable, 00:00:00 preservative free preservative free influenza, seasonal, influenza, seasonal, 2010-02-28 Completed [facility] injectable, injectable, 00:00:00 preservative free preservative free influenza, seasonal, influenza, seasonal, 2010-02-28 Completed [facility] injectable, injectable, 00:00:00 preservative free preservative free influenza, seasonal, influenza, seasonal, 2010-02-28 Completed [facility] injectable, injectable, 00:00:00 preservative free preservative free influenza, seasonal, influenza, seasonal, 2010-02-28 Completed [facility] injectable, injectable, 00:00:00 preservative free preservative free Influenza Vaccine 2010-02-28 Completed [facility] 00:00:00 Influenza Vaccine 2010-02-28 Completed [facility] 00:00:00 Influenza Vaccine 2010-02-28 Completed [facility] 00:00:00 Influenza Vaccine 2010-02-28 Completed [facility] 00:00:00 Influenza Vaccine 2010-02-28 Completed [facility] 00:00:00 Influenza Vaccine 2010-02-28 Completed [facility] 00:00:00 Influenza Vaccine 2010-02-28 Completed [facility] 00:00:00 Influenza Vaccine 2010-02-28 Completed [facility] 00:00:00 Influenza Vaccine 2010-02-28 Completed [facility] 00:00:00 Influenza Vaccine 2010-02-28 Completed [facility] 00:00:00 Influenza Pre-Epic 2010-02-[address] [facility] Influ[facility] Three-TIV 2010-02-28 Com[facility] Influenza Pre-Epic 2010-02-[address] [facility] Influenza Three-TIV 2010-02-28 Completed [facility] Influenza Vaccine 2010-02-28 Completed [facility] 00:00:00 Influenza Pre-Epic 2010-02-[address] [facility] 00:00:00 [facility] Influenza Three-TIV 2010-02-28 Completed [facility] PF 5+ YR [facility] Influenza 2010-02-28 Completed [facility] (Preservative Free) 00:[facility] Influenza 2010-02-28 Completed [facility] (Preservative Free) 00:00:[facility] Influenza 2010-02-28 Completed [facility] (Preservative Free) 00:00:[facility] Vital Signs Vital Name Observation Time Observation Value Comments Source WEIGHT 2020-08-10 17:12:00 80.1 kg WEIGHT 2020-08-10 14:11:00 82.5 kg HEIGHT 2020-08-06 23:13:00 154.9 cm WEIGHT 2020-08-06 23:13:00 79.379 kg Body temperature 2022-01-31 16:37:00 [facility].39 [facility] Respiratory rate 2022-01-31 16:37:00 18 /[facility] Body weight 2022-01-31 16:37:00 [facility] 2022-01-31 16:37:00 31.18 [facility] 2022-01-31 16:37:00 98 /min [facility] Arterial blood by Pulse oximetry Systolic blood 2022-01-31 16:37:00 132 mm[Hg] [facility] Diastolic blood 2022-01-31 16:37:00 84 mm[Hg] [facility] Heart rate 2022-01-31 16:37:00 75 /min [facility] BP Diastolic 2021-11-01 00:00:00 86 mm[Hg] [facility] Height 2021-11-01 00:00:00 61 [in_i] [facility] BMI (Body Mass Index) 2021-11-01 00:00:00 29.5 kg/m2 [facility] BP Systolic 2021-11-01 00:00:00 137 mm[Hg] [facility] Body Weight 2021-11-01 00:00:00 2496 [oz_av] [facility] BP Diastolic 2021-10-25 00:00:00 78 mm[Hg] [facility] Height 2021-10-25 00:00:00 61 [in_i] [facility] BMI (Body Mass Index) 2021-10-25 00:00:00 29.5 kg/m2 [facility] BP Systolic 2021-10-25 00:00:00 136 mm[Hg] [facility] Body Weight 2021-10-25 00:00:00 2496 [oz_av] [facility] BP Diastolic 2021-10-20 00:00:00 58 mm[Hg] [facility] Height 2021-10-20 00:00:00 61 [in_i] [facility] BMI (Body Mass Index) 2021-10-20 00:00:00 29.5 kg/m2 [facility] BP Systolic 2021-10-20 00:00:00 118 mm[Hg] [facility] Body Weight 2021-10-20 00:00:00 2496 [oz_av] [facility] BP Diastolic 2021-10-18 00:00:00 70 mm[Hg] [facility] Height 2021-10-18 00:00:00 61 [in_i] [facility] BMI (Body Mass Index) 2021-10-18 00:00:00 29.5 kg/m2 [facility] BP Systolic 2021-10-18 00:00:00 125 mm[Hg] [facility] Body Weight 2021-10-18 00:00:00 2496 [oz_av] [facility] BP Diastolic 2021-10-14 00:00:00 66 mm[Hg] [facility] Height 2021-10-14 00:00:00 61 [in_i] [facility] BMI (Body Mass Index) 2021-10-14 00:00:00 29.5 kg/m2 [facility] BP Systolic 2021-10-14 00:00:00 119 mm[Hg] [facility] Body Weight 2021-10-14 00:00:00 2496 [oz_av] [facility] BP Diastolic 2021-10-11 00:00:00 76 mm[Hg] [facility] Height 2021-10-11 00:00:00 61 [in_i] [facility] BMI (Body Mass Index) 2021-10-11 00:00:00 29.5 kg/m2 [facility] BP Systolic 2021-10-11 00:00:00 132 mm[Hg] [facility] Body Weight 2021-10-11 00:00:00 2496 [oz_av] [facility] BP Diastolic 2021-10-04 00:00:00 72 mm[Hg] [facility] Height 2021-10-04 00:00:00 61 [in_i] [facility] BMI (Body Mass Index) 2021-10-04 00:00:00 33.5 kg/m2 [facility] BP Systolic 2021-10-04 00:00:00 136 mm[Hg] [facility] Body Weight 2021-10-04 00:00:00 2833 [oz_av] [facility] WEIGHT 2021-09-24 11:00:00 80.5 kg WEIGHT 2021-09-24 07:30:00 83.5 kg WEIGHT 2021-09-23 03:41:00 83.5 kg WEIGHT 2021-09-19 16:38:00 58.7 kg WEIGHT 2021-09-19 12:45:00 61 kg WEIGHT 2021-09-17 22:30:00 61 kg WEIGHT 2021-09-16 16:00:00 64 kg WEIGHT 2021-09-16 12:30:00 67 kg WEIGHT 2021-09-09 11:15:00 67.1 kg WEIGHT 2021-09-07 12:11:00 67.6 kg WEIGHT 2021-09-02 14:15:00 70.6 kg WEIGHT 2021-08-31 17:18:00 70.6 kg HEIGHT 2021-08-30 19:00:00 154.9 cm WEIGHT 2021-08-30 19:00:00 73.6 kg WEIGHT 2021-08-29 11:00:00 73.6 kg WEIGHT 2021-08-29 07:30:00 76.6 kg WEIGHT 2021-08-29 03:00:00 76.6 kg WEIGHT 2021-08-25 04:00:00 75.6 kg WEIGHT 2021-08-24 07:10:00 79 kg WEIGHT 2021-08-20 09:00:00 79 kg WEIGHT 2021-08-20 06:00:00 79.2 kg WEIGHT 2021-08-19 13:00:00 78 kg WEIGHT 2021-09-24 11:00:00 80.5 kg WEIGHT 2021-09-24 07:30:00 83.5 kg WEIGHT 2021-09-23 03:41:00 83.5 kg WEIGHT 2021-09-19 16:38:00 58.7 kg WEIGHT 2021-09-19 12:45:00 61 kg WEIGHT 2021-09-17 22:30:00 61 kg WEIGHT 2021-09-16 16:00:00 64 kg WEIGHT 2021-09-16 12:30:00 67 kg WEIGHT 2021-09-09 11:15:00 67.1 kg WEIGHT 2021-09-07 12:11:00 67.6 kg WEIGHT 2021-09-02 14:15:00 70.6 kg WEIGHT 2021-08-31 17:18:00 70.6 kg HEIGHT 2021-08-30 19:00:00 154.9 cm WEIGHT 2021-08-30 19:00:00 73.6 kg WEIGHT 2021-08-29 11:00:00 73.6 kg WEIGHT 2021-08-29 07:30:00 76.6 kg WEIGHT 2021-08-29 03:00:00 76.6 kg WEIGHT 2021-08-25 04:00:00 75.6 kg WEIGHT 2021-08-24 07:10:00 79 kg WEIGHT 2021-08-20 09:00:00 79 kg WEIGHT 2021-08-20 06:00:00 79.2 kg WEIGHT 2021-08-19 13:00:00 78 kg WEIGHT 2021-09-24 11:00:00 80.5 kg WEIGHT 2021-09-24 07:30:00 83.5 kg WEIGHT 2021-09-23 03:41:00 83.5 kg WEIGHT 2021-09-19 16:38:00 58.7 kg WEIGHT 2021-09-19 12:45:00 61 kg WEIGHT 2021-09-17 22:30:00 61 kg WEIGHT 2021-09-16 16:00:00 64 kg WEIGHT 2021-09-16 12:30:00 67 kg WEIGHT 2021-09-09 11:15:00 67.1 kg WEIGHT 2021-09-07 12:11:00 67.6 kg WEIGHT 2021-09-02 14:15:00 70.6 kg WEIGHT 2021-08-31 17:18:00 70.6 kg HEIGHT 2021-08-30 19:00:00 154.9 cm WEIGHT 2021-08-30 19:00:00 73.6 kg WEIGHT 2021-08-29 11:00:00 73.6 kg WEIGHT 2021-08-29 07:30:00 76.6 kg WEIGHT 2021-08-29 03:00:00 76.6 kg WEIGHT 2021-08-25 04:00:00 75.6 kg WEIGHT 2021-08-24 07:10:00 79 kg WEIGHT 2021-08-20 09:00:00 79 kg WEIGHT 2021-08-20 06:00:00 79.2 kg WEIGHT 2021-08-19 13:00:00 78 kg HEIGHT 2021-08-11 01:00:00 154.9 cm WEIGHT 2021-08-11 01:00:00 78.84 kg HEIGHT 2021-08-11 01:00:00 154.9 cm WEIGHT 2021-08-11 01:00:00 78.84 kg HEIGHT 2021-08-11 01:00:00 154.9 cm WEIGHT 2021-08-11 01:00:00 78.84 kg Systolic blood 2021-08-02 15:46:00 89 mm[Hg] [...] Medicine Body weight 2020-01-22 15:42:00 78.926 kg [facility] BMI 2020-01-22 15:42:00 32.88 kg/m2 [facility] Body height 2020-01-22 15:42:00 154.9 cm [facility] Body weight 2020-01-22 15:42:00 78.926 kg [facility] BMI 2020-01-22 15:42:00 32.88 kg/m2 [facility] Body height 2019-12-25 15:30:00 154.9 cm [facility] Body weight 2019-12-25 15:30:00 78.926 kg [facility] 2019-12-25 15:30:00 32.88 kg/m2 [facility] Body height 2019-12-25 15:30:00 154.9 cm [facility] Body weight 2019-12-25 15:30:00 78.926 kg [facility] 2019-12-25 15:30:00 32.88 kg/m2 [facility] Body height 2019-11-27 14:00:00 154.9 cm [facility] Body weight 2019-11-27 14:00:00 78.926 kg [facility] 2019-11-27 14:00:00 32.88 kg/m2 [facility] Body height 2019-11-27 14:00:00 154.9 cm [facility] Body weight 2019-11-27 14:00:00 78.926 kg [facility] 2019-11-27 14:00:00 32.88 kg/m2 [facility] Body height 2019-11-13 21:22:00 154.9 cm [facility] Body weight 2019-11-13 21:22:00 78.926 kg [facility] BMI 2019-11-13 21:22:00 32.88 kg/m2 [facility] Body height 2019-11-13 21:22:00 154.9 cm [facility] Body weight 2019-11-13 21:22:00 78.926 kg [facility] BMI 2019-11-13 21:22:00 32.88 kg/m2 [facility] HEIGHT 2019-11-04 00:00:00 156 cm WEIGHT 2019-11-04 00:00:00 85.004 kg Systolic blood 2021-09-24 12:03:00 140 mm[Hg] [facility] Diastolic blood 2021-09-24 12:03:00 80 mm[Hg] [facility] Heart rate 2021-09-24 12:03:00 111 /min [facility] Body temperature 2021-09-24 12:03:00 37.11 Tika [facility] Respiratory rate 2021-09-24 12:03:00 18 /min [facility] Oxygen saturation in 2021-09-24 12:03:00 99 /min [facility] Arterial blood by Medical Ce nter Pulse oximetry Body weight 2021-09-24 11:00:00 80.5 kg [facility] BMI 2021-09-24 11:00:00 33.55 kg/m2 [facility] Body height 2021-08-30 19:00:00 154.9 cm [facility] Heart rate 2021-08-25 15:00:00 108 /min [facility] Respiratory rate 2021-08-25 15:00:00 20 /min [facility] Oxygen saturation in 2021-08-25 13:30:00 100 /min [facility] Arterial blood by Medical Ce nter Pulse oximetry Systolic blood 2021-08-25 12:21:00 185 mm[Hg] [facility] Diastolic blood 2021-08-25 12:21:00 77 mm[Hg] [facility] Body temperature 2021-08-25 11:00:00 36.78 Tika [facility] Respiratory rate 2021-08-25 08:29:00 19 /min [facility] Heart rate 2021-08-25 08:27:00 98 /min [facility] Oxygen saturation in 2021-08-25 08:27:00 100 /min [facility] Arterial blood by Medical Ce [facility]ter Pulse oximetry Body temperature 2021-08-25 07:30:00 37.28 Tika [facility] Body weight 2021-08-25 04:00:00 75.6 kg [facility] BMI 2021-08-25 04:00:00 31.49 kg/m2 [facility] Systolic blood 2021-08-24 11:15:00 146 mm[Hg] [facility] Diastolic blood 2021-08-24 11:15:00 62 mm[Hg] [facility] Body height 2021-08-11 01:00:00 154.9 cm [facility] Procedures Procedure Date / Time Performing Clinician Source Performed [id number] 2021-12-10 [facility] 00[facility]00:00 [facility] POCT-GLUCOSE METER [facility] BASIC METABOLIC PANEL 2021-09-24 [facility] 05:39:00 [facility] POCT-GLUCOSE METER 2021-09-[facility] 00:44:00 [facility] POCT-GLUCOSE METER 2021-09-23 [facility] 16:57:00 [facility] SARS-COV2/RT-PCR ([facility] 2021-09-23 Irlanda Short [facility] REF LABS) 09:51:00 [facility] POCT-GLUCOSE METER 2021-09-23 [facility] 08:04:00 [facility] POCT-GLUCOSE METER 2021-09-23 [facility] 06:14:00 [facility] TYPE AND SCREEN, 2021-09-[address] [facility] AUTOMATED 04:26:00 [facility] C-REACTIVE PROTEIN 2021-09-23 [facility] 03:30:00 [facility] MAGNESIUM 2021-09-23 Bartsch, [facility] 03:30:00 [facility] PHOSPHORUS 2021-09-23 Bartsch, [facility] 03:30:00 [facility] CBC (HEMOGRAM ONLY) 2021-09-23 [facility] 03:30:00 [facility] BASIC METABOLIC PANEL 2021-09-23 Dion Cedillo [facility] 03:30:00 [facility] POCT-GLUCOSE METER 2021-09-22 Stephane Shahnew hyde parkchaz [facility] 23:40:[address] [facility] [address] BRAIN WITHOUT IV 2021-09-22 TeofiloStephanenew hyde parkchaz [facility] CONTRAST 17:55:00 [facility] VITAMIN B12 2021-09-22 [facility] 13:18:00 [facility] TSH 2021-09-22 [facility] 13:18:00 [facility] POCT-GLUCOSE METER 2021-09-22 Brett Shah [facility] 11:47:00 [facility] POCT-GLUCOSE METER 2021-09-21 Brett Shah [facility] 23:20:00 [facility] HEMODIALYSIS INPATIENT 2021-09-21 Demar Moore [facility] 22:09:09 [facility] MISCELLANEOUS LAB 2021-09-21 [facility] 18:20:00 [facility] VALPROIC ACID LEVEL, 2021-09-21 [facility] TOTAL 18:19:00 [facility] LEVETIRACETAM LEVEL 2021-09-21 [facility] 18:19:00 [facility] POCT-GLUCOSE METER 2021-09-21 Athreya, [facility] 11:26:00 [facility] POCT-GLUCOSE METER 2021-09-21 Brett Shah [facility] 06:46:00 [facility] C-REACTIVE PROTEIN 2021-09-21 [facility], Wendy David [facility] 04:41:00 [facility] BASIC METABOLIC PANEL 2021-09-21 Bartsch, Wendy Joann [facility] 04:41:00 [facility] MAGNESIUM 2021-09-21 Bartbuck, Wendy Joann [facility] 04:41:00 [place] PHOSPHORUS 2021-09-21 [facility], Wendy Joann [facility] 04:41:00 Center POCT-GLUCOSE METER 2021-09-20 [facility], Wendy Joann [facility] 23:30:00 Center POCT-GLUCOSE METER 2021-09-20 [facility], Wendy Joann [facility] 17:59:00 Center POCT-GLUCOSE METER 2021-09-20 [facility], Wendy Joann [facility] 12:11:00 Center POCT-GLUCOSE METER 2021-09-20 [facility], Wendy Dvaid [facility] 05:52:00 Center POCT-GLUCOSE METER 2021-09-19 [facility], Wendy Joann [facility] 23:22:00 Center POCT-GLUCOSE METER 2021-09-19 [facility], Wendy Joann [facility] 17:06:00 [facility] HEMODIALYSIS INPATIENT 2021-09-19 Demar Moore [facility] 12:35:40 Center POCT-GLUCOSE METER 2021-09-19 [facility], Wendy Joann [facility] 11:24:00 Center POCT-GLUCOSE METER 2021-09-19 [facility], Wendy Joann [facility] 06:29:00 [place] MAGNESIUM 2021-09-19 [facility], Wendy Joann [facility] 04:06:00 Center BASIC METABOLIC PANEL 2021-09-19 [facility], Wendy Joann [facility] 04:06:00 Center C-REACTIVE PROTEIN 2021-09-19 [facility], Wendy Joann [facility] 04:06:00 Center POCT-GLUCOSE METER 2021-09-19 [facility] Center POCT-GLUCOSE METER 2021-09-18 Bartbuck, Wendy Joann [facility] 17:46:00 Center POCT-GLUCOSE METER 2021-09-18 Raul, Wendy Joann [facility] 11:47:00 Center PHOSPHORUS 2021-09-18 Raul, Wendy Joann [facility] 04:21:00 Center CBC (HEMOGRAM ONLY) 2021-09-18 [facility] 04:21:00 Center BASIC METABOLIC PANEL 2021-09-18 [facility]ul[facility] 04:21:00 [place] MAGNESIUM 2021-09-18 Raul, [facility] 04:21:00 Center HEMODIALYSIS INPATIENT 2021-09-17 Demar Moore [facility] 19:51:14 Center POCT-GLUCOSE METER 2021-09-17 [facility] 17:15:00 Center POCT-GLUCOSE METER 2021-09-17 Raul, [facility] 12:05:00 Center CBC (HEMOGRAM ONLY) 2021-09-17 [facility] 04:15:00 Center BASIC METABOLIC PANEL 2021-09-17 Raul, Wendy [facility] 04:15:00 Center MAGNESIUM 2021-09-17 Wendy Carter [facility] 04:15:00 Center POCT-GLUCOSE METER 2021-09-16 [facility], [facility] 22:38:00 Center POCT-GLUCOSE METER 2021-09-16 [facility], [facility] 17:22:00 Center BLOOD CULTURE 2021-09-16 Demar Moore [facility] 14:56:00 Center HEMODIALYSIS INPATIENT 2021-09-16 Demar Moore [facility] 12:40:49 Center POCT-GLUCOSE METER 2021-09-16 Raul Wendy [facility] 11:11:00 Center SARS-COV2/RT-PCR ([facility] 2021-09-16 Deja Dipakgita [facility] & REF LABS) 09:56:00 Zade Ardara POCT-GLUCOSE METER 2021-09-16 [facility], Wendy David [facility] 06:15:00 Center PHOSPHORUS 2021-09-16 [facility] 03:20:00 Center VANCOMYCIN LEVEL, 2021-09-16 Goldie Bowie [facility] RANDOM 03:20:00 Ardara CBC (HEMOGRAM ONLY) 2021-09-16 [facility], Wendy David [facility] 03:20:00 Ardara BASIC METABOLIC PANEL 2021-09-16 [facility], [facility] 03:20:00 Ardara MAGNESIUM 2021-09-16 [facility], Wendy David [facility] 03:20:00 Ardara POCT-GLUCOSE METER 2021-09-15 [facility], Wendy [facility] 23:07:00 Ardara POCT-GLUCOSE METER 2021-09-15 [facility], [facility] 17:02:00 Ardara BLOOD CULTURE 2021-09-15 [facility], Wendy [facility] 13:55:00 Ardara POCT-GLUCOSE METER 2021-09-15 [facility], [facility] 11:24:00 Ardara CBC W/PLT COUNT & AUTO 2021-09-15 Raul Wendy David [facility] DIFFERENTIAL 08:50:00 Center LACTIC ACID, VENOUS 2021-09-15 [facility], Wendy David [facility] 08:50:00 Center PROCALCITONIN 2021-09-15 [facility], [facility] 08:50:00 Center CBC W/PLT COUNT & AUTO 2021-09-15 Raul, [facility] 08:50:00 Ardara POCT-GLUCOSE METER 2021-09-15 [facility] Wendy [facility] 06:01:00 Center POCT-GLUCOSE METER 2021-09-14 [facility], Wed[facility] 23:24:00 Center POCT-GLUCOSE METER 2021-09-14 Raul Wendy David [facility] 17:58:00 Ardara CBC (HEMOGRAM ONLY) 2021-09-14 Kashmir Hopkins [facility] 17:03:00 Ardara XR CHEST 1 VIEW 2021-09-14 Raul Wendy Joann [facility] PORTABLE / BEDSIDE 16:54:00 Ardara CBC W/PLT COUNT & AUTO 2021-09-14 Teresa Caseyleonarda [facility] DIFFERENTIAL 13:35:00 Ardara BASIC METABOLIC PANEL 2021-09-14 Teresa Caseyleonarda [facility] 13:35:00 Ardara MAGNESIUM 2021-09-14 Teresa Caseyleonarda [facility] 13:35:00 Ardara PHOSPHORUS 2021-09-14 Teresa Caseyleonarda [facility] 13:35:00 Ardara CBC W/PLT COUNT & AUTO 2021-09-14 Teresa Caseyleonarda [facility] DIFFERENTIAL 13:35:00 Ardara POCT-GLUCOSE METER 2021-09-14 Raul Wendy David [facility] 12:10:00 Ardara HEMODIALYSIS INPATIENT 2021-09-14 Teresa Caseyleonarda [facility] 09:22:25 Ardara POCT-GLUCOSE METER 2021-09-14 [facility] 07:19:00 [facility] POCT-GLUCOSE METER 2021-09-14 Pablo [facility] 06:21:00 [facility] POCT-GLUCOSE METER 2021-09-14 Pablo [facility] 01:06:00 [facility] POCT-GLUCOSE METER 2021-09-14 Pablo [facility] 00:29:00 [facility] POCT-GLUCOSE METER 2021-09-13 Pablo [facility] 18:48:00 [facility] POCT-GLUCOSE METER 2021-09-13 Stephane Shahnew hyde parkchaz [facility] 12:42:00 [facility] POCT-GLUCOSE METER 2021-09-13 [facility] 05:59:00 [facility] POCT-GLUCOSE METER 2021-09-12 Konrad Shahchaz [facility] 23:36:00 [facility] HEMODIALYSIS INPATIENT 2021-09-12 Kerwin Mclean [facility] 18:55:00 Ardara POCT-GLUCOSE METER 2021-09-12 Brett Shah [facility] 18:44:00 [facility] HEPATITIS B SURFACE 2021-09-12 VinayKerwin [facility] ANTIGEN 15:13:00 Ardara POCT-GLUCOSE METER 2021-09-12 Brett Shah [facility] 13:35:00 [facility] POCT-GLUCOSE METER 2021-09-12 AndreinasalmaStephane batresnew hyde parkchaz [facility] 12:59:00 [facility] REPORT OF PROCEDURE - 2021-09-12 Dl Diana [facility] ENDOSCOPY URL 12:44:29 Ardara ESOPHAGOGASTRODUODENOS 2021-09-12 Dl Diana [facility] COPY, WITH PEG TUBE 11:49:00 Ardara INSERTION POCT-GLUCOSE METER 2021-09-12 Andreinasalmamikaal Konradchaz [facility] 06:29:00 [facility] BASIC METABOLIC PANEL 2021-09-12 Stephane Shahcaridadchaz [facility] 04:06:00 [facility] CBC W/PLT COUNT & AUTO 2021-09-12 Stephane Shahcaridadchaz [facility] DIFFERENTIAL 04:06:00 [facility] APTT 2021-09-12 Kashmir Hopkins [facility] Med ical 04:06:00 Ardara CBC W/PLT COUNT & AUTO 2021-09-12 Stephane Shahnew hyde parkchaz [facility] Medical DIFFERENTIAL 04:06:00 [facility] POCT-GLUCOSE METER 2021-09-11 Brett Shah [facility] 23:45:00 [facility] CBC (HEMOGRAM ONLY) 2021-09-11 Kashmir Hopkins [facility] Medical 18:06:00 Center APTT 2021-09-11 Brett Shah [facility] dical 18:05:00 [facility] POCT-GLUCOSE METER 2021-09-11 Brett Shah [facility] 17:56:00 [facility] POCT-GLUCOSE METER 2021-09-11 Brett Shah [facility] 13:01:00 [facility] 2021-09-11 Brett Shah [facility] Me dical 12:10:00 [facility] POCT-GLUCOSE METER 2021-09-[address] [facility] 10:44:00 [facility] POCT-GLUCOSE METER 2021-09-11 Brett Shah [facility] 06:29:00 [facility] AP[facility] 2021-09-11 Kellie, Kashmir [facility] ical 05:08:00 Center APTT 2021-09-11 Kellie, [place] [facility] ical 01:38:00 Center POCT-GLUCOSE METER 2021-09-11 Konrad Shahn [facility] 01:04:00 [facility] APTT 2021-09-10 Kellie, [place] [facility] ical 17:48:00 Center POCT-GLUCOSE METER 2021-09-10 Brett Shah [facility] Medical 17:17:00 [facility] POCT-GLUCOSE METER 2021-09-10 Konrad Shahchaz [facility] 11:44:00 [facility] APTT 2021-09-10 Kellie, [place] [facility] ical 10:41:00 Center APTT 2021-09-10 Kellie, [place] [facility] ical 08:56:00 Center POCT-GLUCOSE METER 2021-09-10 Konrad Shahn [facility] 08:02:00 [facility] POCT-GLUCOSE METER 2021-09-10 Konrad Shahn [facility] 07:02:00 [facility] APTT 2021-09-10 Kellie Kashmir [facility] Med ical 02:33:00 Ardara POCT-GLUCOSE METER 2021-09-10 Andreinakami Brett [facility] 00:35:00 [facility] APTT 2021-09-09 Kellie, Kashmir [facility] 17:29:00 Ardara POCT-GLUCOSE METER 2021-09-09 Pablo Stephanenew hyde parkchaz [facility] 17:18:00 [facility] SARS-COV2/RT-PCR ([facility] 2021-09-09 Irlanda Short [facility] & REF LABS) 14:25:00 [facility] POCT-GLUCOSE METER 2021-09-09 Pablo Stephanenew hyde parkchaz [facility] 12:12:00 [facility] HEMODIALYSIS INPATIENT 2021-09-09 [facility] 11:44:35 Ardara POCT-GLUCOSE METER 2021-09-09 Pablo Konradchaz [facility] 10:03:00 [facility] APTT 2021-09-09 Kellie, Kashmir [facility] 08:00:00 Ardara POCT-GLUCOSE METER 2021-09-09 Andreinakami Konradchaz [facility] Medical 06:11:00 [facility] PROTHROMBIN TIME/INR 2021-09-09 Stephane Shahcaridadchaz [facility] 05:26:00 [facility] BASIC METABOLIC PANEL 2021-09-09 Demar Moore [facility] Medical 05:26:00 Ardara CBC W/PLT COUNT & AUTO 2021-09-09 Jorge Mooreea [facility] Medical DIFFERENTIAL 05:26:00 Ardara MAGNESIUM 2021-09-09 Jorge Mooreea [facility] Medical 05:26:00 Ardara PHOSPHORUS 2021-09-09 Jorge Mooreea [facility] Medical 05:26:00 Ardara CBC W/PLT COUNT & AUTO 2021-09-09 Demar Moore [facility] Medical DIFFERENTIAL 05:26:00 Ardara APTT 2021-09-09 Kellie, [place] [facility] ical 00:44:00 Ardara POCT-GLUCOSE METER 2021-09-08 Andreinamedina hospitalmikala [facility] 23:38:00 [facility] CBC (HEMOGRAM ONLY) 2021-09-08 Kellie, Kashmir [facility] Medical 17:53:00 Ardara POCT-GLUCOSE METER 2021-09-08 Pablo [facility] 17:23:00 [facility] APTT 2021-09-08 Kellie, [place] [facility] ical 15:58:00 Ardara APTT 2021-09-08 Kellie, Kashmir [facility] 14:05:00 Ardara POCT-GLUCOSE METER 2021-09-08 Brett Shah [facility] 12:17:00 [facility] APTT 2021-09-08 Kellie, [place] [facility] ical 06:51:00 Ardara APTT 2021-09-07 Kellie, Kashmir [facility] ical 22:15:00 Ardara APTT 2021-09-07 Kellie, [place] [facility] ical 17:22:00 Ardara APTT 2021-09-07 Kellie, [place] [facility] ical 10:55:00 Ardara APTT 2021-09-07 Kellie, [place] [facility] ical 08:49:00 Ardara HEMODIALYSIS INPATIENT 2021-09-07 Demar Moore [facility] 08:48:45 Ardara APTT 2021-09-07 Kellie, [place] [facility] ical 00:01:00 Ardara APTT 2021-09-06 Teofilomikala Konradn [facility] 17:16:00 [facility] APTT 2021-09-06 Pablo Konradn [facility] 09:14:00 [facility] APTT 2021-09-06 Kellie, [place] [facility] ical 06:21:00 Ardara APTT 2021-09-06 Kellie, [place] [facility] ical 04:20:00 Ardara CBC (HEMOGRAM ONLY) 2021-09-05 Kellie [facility] 21:26:00 Ardara APTT 2021-09-05 Kellie [facility] ical 21:26:00 Ardara HEMODIALYSIS INPATIENT 2021-09-05 [facility] 11:45:00 Ardara POCT-GLUCOSE METER 2021-09-05 Kellie [facility] 11:11:00 Ardara CBC W/PLT COUNT & AUTO 2021-09-05 Kellie [facility] Medical DIFFERENTIAL 05:08:00 Ardara BASIC METABOLIC PANEL 2021-09-05 Kellie [facility] Medical 05:08:00 Ardara CBC W/PLT COUNT & AUTO 2021-09-05 Kellie [facility] DIFFERENTIAL 05:08:00 Ardara SARS-COV2/RT-PCR ([facility] 2021-09-03 Irlanda Short [facility] & REF LABS) 10:23:00 de Ardara BASIC METABOLIC PANEL 2021-09-02 Jorge Mooreea [facility] 03:44:00 Ardara CBC W/PLT COUNT & AUTO 2021-09-02 Teresa Caseyea [facility] DIFFERENTIAL 03:44:00 Ardara MAGNESIUM 2021-09-02 [facility] 03:44:00 Ardara PHOSPHORUS 2021-09-02 Teresa Caseyea [facility] 03:44:00 Ardara CBC W/PLT COUNT & AUTO 2021-09-02 [facility] DIFFERENTIAL 03:44:00 Ardara HEMODIALYSIS INPATIENT 2021-08-31 Jorge Mooreea [facility] 17:24:00 Ardara POCT-GLUCOSE METER 2021-08-31 [facility] 16:38:00 [facility] POCT-GLUCOSE METER 2021-08-31 [facility] 12:07:00 [facility] VALPROIC ACID LEVEL, 2021-08-31 Luna Parada [facility] Medical TOTAL 10:43:00 Ardara POCT-GLUCOSE METER 2021-08-31 Ilya, [facility] 05:56:00 [facility] CBC W/PLT COUNT & AUTO 2021-08-31 Lion, Priti [facility] Medical DIFFERENTIAL 02:52:00 Ardara MAGNESIUM 2021-08-31 Lion, Priti [facility] 02:52:00 Ardara PHOSPHORUS 2021-08-31 Lion, Priti [facility] Medical 02:52:00 Ardara BASIC METABOLIC PANEL 2021-08-31 Ahmad, Ali [facility] 02:52:00 Ardara APTT 2021-08-31 Noorb[facility]Robert [facility] edical 02:52:00 [facility] CBC W/PLT COUNT & AUTO 2021-08-31 Lion [facility] DI[facility] 02:52:00 Ardara POCT-GLUCOSE METER 2021-08-30 [facility], [facility] 23:30:00 [facility] POCT-GLUCOSE METER 2021-08-30 [facility], [facility] 18:14:00 [facility] POCT-GLUCOSE METER 2021-08-30 [facility], [facility] 11:35:00 [facility] EEG 12-26 HR 2021-08-30 [facility], [facility] ical CONTINUOUS MONITORING 06:28:00 [facility] WITH VIDEO POCT-GLUCOSE METER 2021-08-30 [facility], [facility] 05:51:00 [facility] POCT-GLUCOSE METER 2021-08-30 [facility], [facility] 04:44:00 [facility] CBC W/PLT COUNT & AUTO 2021-08-30 Lion, [facility] DIFFERENTIAL 03:21:00 Ardara MAGNESIUM 2021-08-30 Lion, Priti [facility] Medical 03:21:00 Ardara PHOSPHORUS 2021-08-30 Lion, Priti [facility] Medical 03:21:00 Ardara BASIC METABOLIC PANEL 2021-08-30 Ahmad, Ali [facility] 03:21:00 Ardara APTT 2021-08-30 Noorbhai, Jones [facility] 03:21:00 [facility] CBC W/PLT COUNT & AUTO 2021-08-30 Elisabet [facility] DIFFERENTIAL 03:21:00 Ardara XR CHEST 1 VIEW 2021-08-30 Zunilda Joya [facility] PORTABLE / BEDSIDE 01:16:00 Ardara POCT-GLUCOSE METER 2021-08-29 [facility] 23:38:00 [facility] APTT 2021-08-29 [facility] 22:06:00 [facility] POCT-GLUCOSE METER 2021-08-29 [facility] 18:10:00 [facility] APTT 2021-08-29 [facility] 15:04:00 [facility] POCT-GLUCOSE METER 2021-08-29 [facility] 11:46:00 [facility] HEMODIALYSIS INPATIENT 2021-08-29 Kerwin Mclean [facility] 07:31:54 Ardara APTT 2021-08-29 [facility] ed[facility] 06:51:00 [facility] EEG 12-26HR 2021-08-29 [facility] Curtis [facility] edical INTERMITTENT 06:13:00 [facility] MONITORING WITH VIDEO POCT-GLUCOSE METER 2021-08-29 [facility] Curtis [facility] 05:32:00 [facility] MAGNESIUM 2021-08-29 [facility] 04:59:00 Ardara PHOSPHORUS 2021-08-29 Lion [facility] 04:59:00 Ardara COMPREHENSIVE 2021-08-29 Nichelle Day [facility] Med ical METABOLIC PANEL 04:59:00 Ardara BLOOD GAS, ARTERIAL 2021-08-29 Lion [facility] 03:41:00 Ardara CBC W/PLT COUNT & AUTO 2021-08-29 Lion Priti [facility] Medical DIFFERENTIAL 03:40:00 Ardara CBC W/PLT COUNT & AUTO 2021-08-29 Lion [facility] DIFFERENTIAL 03:40:00 Ardara XR CHEST 1 VIEW 2021-08-29 Zunilda Joya [facility] Medical PORTABLE / BEDSIDE 02:28:00 Ardara POCT-GLUCOSE METER 2021-08-29 [facility] 00:28:00 [facility] APTT 2021-08-29 [facility] 00:23:00 [facility] APTT 2021-08-28 [facility] ed[facility] 22:05:00 [facility] XR ABDOMEN/KUB 1 VIEW 2021-08-28 [facility] Medical PORTABLE 18:50:00 [facility] POCT-GLUCOSE METER 2021-08-28 [facility] 18:08:00 [facility] APTT 2021-08-28 [facility] 12:53:00 [facility] POCT-GLUCOSE METER 2021-08-28 [facility] 12:02:00 [facility] POCT-GLUCOSE METER 2021-08-28 [facility] Medical 07:17:00 [facility] EEG 12-26HR 2021-08-[address] [facility] INTERMITTENT 06:09:00 [facility] MONITORING WITH VIDEO CBC W/PLT COUNT & AUTO 2021-08-28 Priti Seymour [facility] Medical DIFFERENTIAL 04:10:00 Ardara BASIC METABOLIC PANEL 2021-08-28 [facility] 04:10:00 Ardara MAGNESIUM 2021-08-28 Lion [facility] 04:10:00 Center PHOSPHORUS 2021-08-28 Priti Seymour [facility] 04:10:00 Ardara BLOOD GAS, VENOUS 2021-08-28 [facility], [facility] Medical 04:10:00 [facility] PT/APTT 2021-08-28 [facility], [facility] 04:10:00 [facility] CBC W/PLT COUNT & AUTO 2021-08-28 Priti Seymour [facility] DIFFERENTIAL 04:10:00 Ardara XR CHEST 1 VIEW 2021-08-28 Zunilda Joya [facility] PORTABLE / BEDSIDE 00:39:00 Ardara POCT-GLUCOSE METER 2021-08-27 [facility], [facility] Medical 23:45:00 [facility] PT/APTT 2021-08-27 [facility], [facility] edical 21:17:00 [facility] POCT-GLUCOSE METER 2021-08-27 [facility] Medical 17:30:00 [facility] APTT 2021-08-27 Ceferino Jones [facility] 14:40:00 [facility] POCT-GLUCOSE METER 2021-08-27 [facility] Medical 12:20:00 [facility] POCT-GLUCOSE METER 2021-08-27 [facility] Medical 08:16:00 [facility] POCT-GLUCOSE METER 2021-08-[address] [facility] 07:02:00 [facility] PT/APTT 2021-08-27 [facility], [facility] 06:57:00 [facility] BLOOD GAS, ARTERIAL 2021-08-27 Priti Seymour [facility] Medical 06:39:00 Center CBC W/PLT COUNT & AUTO 2021-08-27 Lion, [facility] DIFFERENTIAL 06:35:00 Ardara BASIC METABOLIC PANEL 2021-08-27 Lion [facility] 06:35:00 Ardara MAGNESIUM 2021-08-27 Lion [facility] 06:35:00 Ardara PHOSPHORUS 2021-08-27 Lion [facility] 06:35:00 Ardara VALPROIC ACID LEVEL, 2021-08-27 PittardStefanBrisa [facility] TOTAL 06:35:00 Ardara CBC W/PLT COUNT & AUTO 2021-08-27 Lion [facility] DIFFERENTIAL 06:35:00 Ardara EEG 12-26 HR 2021-08-27 [facility] countySusanJonesC[facility] edical CONTINUOUS MONITORING 06:16:00 [facility] WITH VIDEO XR CHEST 1 VIEW 2021-08-27 Zunilda Joya [facility] PORTABLE / BEDSIDE 02:27:00 Ardara POCT-GLUCOSE METER 2021-08-27 [facility] 01:37:00 [facility] PREPARE RBC 2021-08-26 Ramin De Leon [facility] 23:55:00 Ardara POCT-GLUCOSE METER 2021-08-26 [facility] 18:09:00 [facility] HEMODIALYSIS INPATIENT 2021-08-26 Demar Moore [facility] 16:10:19 Ardara POCT-GLUCOSE METER 2021-08-26 [facility] 13:00:00 [facility] APTT 2021-08-26 [facility]eniorbdeaconess hospital union countySusanJonesSt[facility] ed[facility] 10:08:00 [facility] POCT-GLUCOSE METER 2021-08-26 [facility] 05:24:00 [facility] BLOOD GAS, ARTERIAL 2021-08-26 Lion [facility] 04:29:00 Ardara BASIC METABOLIC PANEL 2021-08-26 Lion [facility] 04:28:00 Ardara MAGNESIUM 2021-08-26 [facility]abet [facility]our[facility] 04:28:00 Ardara PHOSPHORUS 2021-08-26 Lion [facility] 04:28:00 Ardara VALPROIC ACID LEVEL, 2021-08-26 PittardBrisa [facility] TOTAL 04:28:00 Ardara APTT 2021-08-26 [facility] edical 04:27:00 [facility] XR CHEST 1 VIEW 2021-08-26 [facility] / [facility]EDSIDE 02:31:00 Ardara CBC W/PLT COUNT & AUTO 2021-08-26 Lion [facility] DIFFERENTIAL 00:48:00 Ardara CBC W/PLT COUNT & AUTO 2021-08-26 Lion [facility] DIFFERENTIAL 00:48:00 Ardara POCT-GLUCOSE METER 2021-08-25 [facility] 23:25:00 [facility] APTT 2021-08-[facility] edical 21:28:00 [facility] TRANSFUSE 2021-08-[facility] edical LEUKO-REDUCED RED 19:00:00 [facility] [facility] [place] BLOOD CELLS POCT-GLUCOSE METER 2021-08-25 [facility] 18:13:00 [facility] APTT 2021-08-25 [facility], [facility] edical 14:25:00 [facility] [place] POCT-GLUCOSE METER 2021-08-25 [facility] 12:43:00 [facility] PREPARE LEUKO-REDUCED 2021-08-25 [facility], [facility] RBC 12:14:00 [facility] APTT 2021-08-25 Vandana Andrade [facility] 11:00:00 [place] LACTIC ACID, VENOUS 2021-08-25 Ahmad, [facility] 11:00:00 Center TYPE AND SCREEN, 2021-08-25 [facility] AUTOMATED 11:00:00 [facility] [place] SARS-COV2/RT-PCR ([facility] 2021-08-25 [facility] & REF LABS) 10:50:00 [facility] CBC (HEMOGRAM ONLY) 2021-08-25 Lion [facility] 05:54:00 Ard[place] POCT-GLUCOSE METER 2021-08-25 [facility] 05:50:00 [facility] BLOOD GAS, ARTERIAL 2021-08-25 Lion [facility] 02:52:00 [place] CBC W/PLT COUNT & AUTO 2021-08-25 Lion [facility] DIFFERENTIAL 02:52:00 Ardara BASIC METABOLIC PANEL 2021-08-25 Lion [facility] (7) 02:52:00 [place] MAGNESIUM 2021-08-25 Lion [facility] 02:52:00 Ardara PHOSPHORUS 2021-08-25 Lion [facility] 02:52:00 Ar[facility] LACTIC ACID, VENOUS 2021-08-25 [facility] 02:52:00 [place] APTT 2021-08-[address] [facility] edical 02:52:00 [facility] [place] CREATINE KINASE (CK) 2021-08-25 Latoyahimarcia [facility] 02:52:00 Ardara CBC W/PLT COUNT & AUTO 2021-08-25 Lion [facility] DIFFERENTIAL 02:52:00 Ardara HEPATIC FUNCTION PANEL 2021-08-25 [facility] 02:52:00 [place] XR CHEST 1 VIEW 2021-08-25 Zunilda Joya [facility] PORTABLE / BEDSIDE 02:33:00 [place] POCT-GLUCOSE METER 2021-08-24 [facility] 23:10:00 [facility] POCT-GLUCOSE METER 2021-08-24 [facility] 17:03:00 [facility] APTT 2021-08-24 Robert De La Vega [facility] edical 16:50:00 [facility] [place] LACTIC ACID, ARTERIAL 2021-08-24 GalinamarciaNichelle [facility] 16:50:00 Ardara POCT-GLUCOSE METER 2021-08-24 [facility] 14:19:00 [facility] HEMODIALYSIS INPATIENT 2021-08-24 Demar Moore [facility] 11:19:00 [place] XR CHEST 1 VIEW 2021-08-24 [facility] edical PORTABLE / BEDSIDE 09:46:00 [facility] POCT-GLUCOSE METER 2021-08-24 [facility] 05:49:00 [facility] PHENYTOIN LEVEL, TOTAL 2021-08-24 Bghigh, Sherita [facility] 05:41:00 [place] BLOOD GAS, ARTERIAL 2021-08-24 [facility] 04:58:00 Ardara CBC W/PLT COUNT & AUTO 2021-08-24 [facility] DIFFERENTIAL 04:54:00 Ardara BASIC METABOLIC PANEL 2021-08-24 [facility] (7) 04:54:00 Ard[place] MAGNESIUM 2021-08-24 Lion [facility] 04:54:00 Ardara PHOSPHORUS 2021-08-24 [facility] 04:54:00 Ardara CALCIUM, IONIZED 2021-08-24 [facility] 04:54:00 Ardara LACTIC ACID, VENOUS 2021-08-24 [facility] 04:54:00 Ardara CBC W/PLT COUNT & AUTO 2021-08-24 [facility] DIFFERENTIAL 04:54:00 Ardara (CELLAVISION MANUAL 2021-08-24 Lion, Priti [facility] DIFF) 04:54:00 Center APTT 2021-08-24 Robert De La V[facility] 04:53:00 [facility] X[facility] ABDOMEN / KUB 1 2021-08-24 Priti Seymour [facility] VIEW 00:26:00 Center XR CHEST 1 VIEW 2021-08-24 Zunilda Joya [facility] Medical PORTABLE / BEDSIDE 00:25:00 Ardara POCT-GLUCOSE METER 2021-08-[address] [facility] 23:48:00 [facility] APTT 2021-08-23 [facility] edical 20:32:00 ebPaul [facility] APTT 2021-08-23 [facility] edical 18:28:00 [facility] POCT-GLUCOSE METER 2021-08-[address] [facility] 16:40:00 [facility] POCT-GLUCOSE METER 2021-08-[address] [facility] 11:52:00 [facility] APTT 2021-08-23 Robert De La Vega [facility] edical 11:46:00 [facility] [place] HC VENOUS DOPPLER EXT 2021-08-23 Luis Eduardo Talamantes [facility] ELIZABET 10:15:00 Center XR CHEST 1 VIEW 2021-08-23 Dinesh Head [facility] Medical PORTABLE / BEDSIDE 09:25:00 Ardara SPUTUM CULTURE + GRAM 2021-08-23 Dinesh Head [facility] STAIN 09:21:00 Ardara PROCALCITONIN 2021-08-23 [facility] 09:03:00 [facility] EEG 12-26 HR 2021-08-23 Ravinder Ardon [facility] CONTINUOUS MONITORING 06:07:00 Center WITH VIDEO POCT-GLUCOSE METER 2021-08-23 [facility] 05:13:00 [facility] BLOOD GAS, ARTERIAL 2021-08-23 [facility] 03:48:00 Ardara CBC W/PLT COUNT & AUTO 2021-08-23 Lion [facility] DIFFERENTIAL 03:47:00 Ardara BASIC METABOLIC PANEL 2021-08-23 Lion [facility] (7) 03:47:00 Ardara MAGNESIUM 2021-08-23 Lion [facility] 03:47:00 Ardara PHOSPHORUS 2021-08-23 Lion [facility] 03:47:00 Ardara CBC W/PLT COUNT & AUTO 2021-08-23 [place] [facility] DIFFERENTIAL 03:47:00 Ardara (CELLAVISION MANUAL 2021-08-23 Lion [facility] DIFF) 03:47:00 Ard[place] XR CHEST 1 VIEW 2021-08-23 Zunilda Joay [facility] PORTABLE / BEDSIDE 01:23:00 Ardara POCT-GLUCOSE METER 2021-08-23 [facility] 00:24:00 [facility] ALBUMIN 2021-08-22 Demar Moore [facility] 16:57:00 Ardara POCT-GLUCOSE METER 2021-08-22 [facility] 16:56:00 [facility] HEMODIALYSIS INPATIENT 2021-08-22 Demar Moore [facility] 11:22:25 Ardara EEG 12-26 HR 2021-08-22 Ravinder Ardon [facility] CONTINUOUS MONITORING 07:49:00 Ardara WITH VIDEO POCT-GLUCOSE METER 2021-08-22 Ramin De Leon [facility] 05:37:00 Ardara BASIC METABOLIC PANEL 2021-08-22 [facility] (7) 03:58:00 Ardara MAGNESIUM 2021-08-22 [facility] Medical 03:58:00 Ardara CBC W/PLT COUNT & AUTO 2021-08-22 [facility], Ramin [facility] DIFFERENTIAL 03:58:00 Ardara BLOOD GAS, ARTERIAL 2021-08-22 [facility], [facility] 03:58:00 Ardara PHOSPHORUS 2021-08-22 [facility], Ramincassy Piedra [facility] Medical 03:58:00 Ardara CBC W/PLT COUNT & AUTO 2021-08-22 [facility], [facility] DIFFERENTIAL 03:58:00 Ardara (CELLAVISION MANUAL 2021-08-22 [facility], [facility] DIFF) 03:58:00 Ardara XR CHEST 1 VIEW 2021-08-22 Zunilda Joya [facility] PORTABLE / BEDSIDE 00:32:00 Ardara POCT-GLUCOSE METER 2021-08-21 [facility], [facility] 23:43:00 Ardara BASIC METABOLIC PANEL 2021-08-21 Dilcia, [facility] (7) 15:55:00 Ardara PHOSPHORUS 2021-08-21 McGlennonGeeew [facility] 15:55:00 Ard[place] PHENYTOIN LEVEL, TOTAL 2021-08-21 Zunilda Joya Ubprashanth I [facility] 12:14:00 Ardara HEMOGLOBIN AND 2021-08-21 Noorbhai, [facility] edical HEMATOCRIT 12:14:00 [facility] [place] BASIC METABOLIC PANEL 2021-08-21 Noorbhai, [facility] (7) 12:14:00 ZoebPaul [facility] CBC W/PLT COUNT & AUTO 2021-08-21 Dilcia, [facility] Medical DIFFERENTIAL 12:14:00 Ardara MAGNESIUM 2021-08-21 Dilcia, [facility] Med ical 12:14:00 Ardara PHOSPHORUS 2021-08-21 [facility] 12:14:00 Ardara CBC W/PLT COUNT & AUTO 2021-08-21 Dilcia, [facility] Medical DIFFERENTIAL 12:14:00 Ardara IGG INDEX (CSF + 2021-08-21 [facility] 12:10:00 Zoebali Ardara PROTEIN, CSF 2021-08-21 [facility] edical 12:09:00 [facility] [place] CSF CELL COUNT 2021-08-21 [facility] edical W/DIFFERENTIAL 12:09:00 [facility] [place] CSF CULTURE + GRAM 2021-08-21 [facility], [facility] Medical STAIN 12:09:00 [facility] [place] GLUCOSE, CSF 2021-08-21 [facility], [facility] M edical 12:09:00 [facility] [place] MENINGITIS/ENCEPHALITI 2021-08-21 [facility], [facility] S PANEL 12:09:00 [facility] [place] MISCELLANEOUS LAB 2021-08-21 [facility], [facility] Medical ORDER 12:09:00 [facility] [place] WEST NILE VIRUS, CSF, 2021-08-21 [facility], [facility] IGG & IGM 12:09:00 [facility] [place] EEG 12-26 HR 2021-08-21 Ravinder Ardon [facility] CONTINUOUS MONITORING 09:37:58 Ardara WITH VIDEO XR CHEST 1 VIEW 2021-08-21 Zunilda Jyoa [facility] PORTABLE / BEDSIDE 07:49:00 Ardara POCT-GLUCOSE METER 2021-08-21 [facility] 06:18:00 Ardara BLOOD GAS, ARTERIAL 2021-08-21 [facility] 03:24:00 Ard[place] PHENYTOIN LEVEL, TOTAL 2021-08-21 Dilcia, Fnu [facility] AND FREE 03:23:00 Ardara BASIC METABOLIC PANEL 2021-08-21 [facility] (7) 03:23:00 Ardara MAGNESIUM 2021-08-21 [facility] Medical 03:23:00 Ardara PHOSPHORUS 2021-08-21 [facility] Medical 03:23:00 Ardara CBC W/PLT COUNT & AUTO 2021-08-21 [facility] Tadeo [facility] DIFFERENTIAL 03:23:00 Ardara CBC W/PLT COUNT & AUTO 2021-08-21 [facility], R[facility] DIFFERENTIAL 03:23:00 Ardara POCT-GLUCOSE METER 2021-08-21 [facility], Ramin Piedra [facility] 00:20:00 Ardara ECG 12-LEAD 2021-08-20 Unknown, 7 Doctor [facility] 23:09:01 Ardara ECG 12-LEAD 2021-08-20 Unknown, Hl7 Doctor [facility] 23:09:01 Ardara ECG 12-LEAD 2021-08-20 Pittard, Brisa [facility] Med ical 23:08:35 Ardara ECG 12-LEAD 2021-08-20 Unknown, Hl7 Doctor [facility] 23:08:35 Ardara ECG 12-LEAD 2021-08-20 Unknown, [address] 23:08:35 Ard[place] POCT-GLUCOSE METER 2021-08-20 [facility], R[facility] 22:22:00 Ardara POCT-GLUCOSE METER 2021-08-20 [facility], [facility] 17:25:00 Ardara PHENYTOIN LEVEL, TOTAL 2021-08-20 Dinesh Head [facility] 14:09:00 Ardara NV INSERT 2021-08-20 McGlennonLuis Eduardo [facility] CATH,ART,PERCUT,LAWRENCE 13:28:00 Ardara ERM POCT-GLUCOSE METER 2021-08-20 [facility], R[facility] 12:04:00 Ardara XR ABDOMEN / KUB 1 2021-08-20 Dinesh Head [facility] Medical VIEW 11:57:00 Ardara POCT-GLUCOSE METER 2021-08-20 [facility], R[facility] 11:04:00 Ardara EEG 12-26 HR 2021-08-20 Ravinder Ardon [facility] CONTINUOUS MONITORING 10:52:21 Ardara WITH VIDEO POCT-GLUCOSE METER 2021-08-20 [facility], Ramincassy Piedra [facility] 07:02:00 Ardara HEMODIALYSIS INPATIENT 2021-08-20 Ranjan Levin [facility] 06:21:50 Ardara POCT-GLUCOSE METER 2021-08-20 [facility], [facility] 06:11:00 Ardara BLOOD GAS, ARTERIAL 2021-08-20 [facility], [facility] 04:29:00 Ardara PTH, INTACT 2021-08-20 Maria Dolores LezamaRanjan [facility] 04:28:00 Ardara CBC W/PLT COUNT & AUTO 2021-08-20 [facility], [facility] DIFFERENTIAL 04:28:00 Ardara BASIC METABOLIC PANEL 2021-08-20 [facility], [facility] (7) 04:28:00 Ardara MAGNESIUM 2021-08-20 [facility], [facility] 04:28:00 Ardara PHOSPHORUS 2021-08-20 [facility], [facility] 04:28:00 Ardara CBC W/PLT COUNT & AUTO 2021-08-20 [facility], [facility] DIFFERENTIAL 04:28:00 Ardara POCT-GLUCOSE METER 2021-08-19 [facility], [facility] 19:04:00 Ard[place] POCT-GLUCOSE METER 2021-08-19 Isaac Meehan [facility] 11:51:00 Ard[place] XR ABDOMEN / KUB 1 2021-08-19 [facility], [facility] VIEW 10:50:00 Ardara CENTRAL LINE 2021-08-19 Negrete, [facility] Med ical 10:41:04 Ardara INSERT NON-TUNNEL CV 2021-08-19 Negrete, [facility] Medical CATH 10:41:04 Ardara XR CHEST 1 VIEW 2021-08-19 Negrete, [facility] Med ical PORTABLE / BEDSIDE 10:35:00 Ardara SARS-COV2/RT-PCR ([facility] 2021-08-19 Negrete, [facility] Medical & REF LABS) 09:43:00 Ardara INTUBATION 2021-08-19 Tyson, Demetrius Annika [facility] 09:37:37 Ardara BLOOD GAS, ARTERIAL 2021-08-19 Negrete, [facility] 09:34:00 Ardara POCT-GLUCOSE METER 2021-08-19 Zoran Isaac [facility] 08:10:00 Ard[place] POCT-GLUCOSE METER 2021-08-19 Zoran [facility] 06:08:00 Ardara CBC W/PLT COUNT & AUTO 2021-08-19 Juaquin, Everardo [facility] DIFFERENTIAL 03:37:00 Ardara BASIC METABOLIC PANEL 2021-08-19 Juaquin, [facility] (7[facility] 03:37:00 Ardara CBC W/PLT COUNT & AUTO 2021-08-19 Juaquin, [facility] DIFFERENTIAL 03:37:00 Ardara POCT-GLUCOSE METER 2021-08-18 Isaac Meehan [facility] 21:06:00 Ardara MR BRAIN WITHOUT IV 2021-08-18 Juaquin, [facility] CONTRAST 15:58:[address] BRAIN WITHOUT IV 2021-08-18 Negrete, [facility] Medical CONTRAST 15:56:00 Ardara POCT-GLUCOSE METER 2021-08-18 Marianela Meehangeorgette [facility] 10:36:00 Center CBC W/PLT COUNT & AUTO 2021-08-18 [facility] DIFFERENTIAL 09:53:00 Ardara COMPREHENSIVE 2021-08-18 Tom Vinitha [facility] METABOLIC PANEL 09:53:00 Ardara MAGNESIUM 2021-08-18 Negrete Pilar [facility] Med ical 09:53:00 Center CBC W/PLT COUNT & AUTO 2021-08-18 Tom Morrisitha [facility] DIFFERENTIAL 09:53:00 Ardara POCT-GLUCOSE METER 2021-08-18 Marianela Meehangeorgette [facility] 08:48:00 Ardara POCT-GLUCOSE METER 2021-08-17 Zoran [facility] 17:29:00 Center POCT-GLUCOSE METER 2021-08-17 Marianela Meehangeorgette [facility] 12:33:00 Ardara POCT-GLUCOSE METER 2021-08-17 Zoran Isaac Staples [facility] 10:39:00 [facility] 2021-08-17 Zoran Isaac Staples [facility] METABOLIC PANEL 04:57:00 Ardara CBC W/PLT COUNT & AUTO 2021-08-17 Zoran Isaac Staples [facility] DIFFERENTIAL 04:57:00 Ardara MAGNESIUM 2021-08-17 Zoran Isaac Staples [facility] 04:57:00 Ardara CBC W/PLT COUNT & AUTO 2021-08-17 Zoran Isaac Staples [facility] DIFFERENTIAL 04:57:00 Ardara IR TUNNELED CATHETER 2021-08-16 Jenifer Santos [facility] INSERTION 10:00:00 [facility] 2021-08-16 Zoran Isaac Staples [facility] METABOLIC PANEL 04:57:00 Ardara CBC W/PLT COUNT & AUTO 2021-08-16 Zoran Isaac Staples [facility] DIFFERENTIAL 04:57:00 Ardara MAGNESIUM 2021-08-16 Zoran Isaac Staples [facility] 04:57:00 Ardara CBC W/PLT COUNT & AUTO 2021-08-16 Zoran Isaac Staples [facility] DIFFERENTIAL 04:57:00 Ardara GI PATHOGEN PROFILE BY 2021-08-15 Say Bautista [facility] Medical PCR 14:45:00 Ardara CALCIUM, IONIZED 2021-08-15 Jann, [facility] 03:35:00 [facility] 2021-08-15 Marianela Meehangeorgette Staples [facility] METABOLIC PANEL 03:35:00 Ardara CBC W/PLT COUNT & AUTO 2021-08-15 Zoran Isaac Staples [facility] DIFFERENTIAL 03:35:00 Ardara MAGNESIUM 2021-08-15 Zoran Isaac Staples [facility] 03:35:00 Ardara HEPATITIS B SURFACE 2021-08-15 Allen Forteed Oneil [facility] ANTIGEN 03:35:00 Ardara HEPATITIS B SURFACE 2021-08-15 Jann, Yo [facility] ANTIBODY 03:35:00 Ardara CBC W/PLT COUNT & AUTO 2021-08-15 Marianela Meehangeorgette Staples [facility] DIFFERENTIAL 03:35:00 Ardara PREPARE LEUKO-REDUCED 2021-08-13 Zoran Marianelageorgette Staples [facility] RBC 23:55:00 Ardara BASIC METABOLIC PANEL 2021-08-13 Jann [facility] (7) 16:45:00 Ardara CBC W/PLT COUNT & AUTO 2021-08-13 [facility] DIFFERENTIAL 16:45:00 Ardara CALCIUM, IONIZED 2021-08-13 [facility] Medical 16:45:00 Ardara CBC W/PLT COUNT & AUTO 2021-08-13 [facility] DIFFERENTIAL 16:45:00 Ardara PHOSPHORUS 2021-08-13 [facility] 10:59:00 Ardara C. DIFFICILE GDH TOXIN 2021-08-13 [facility] 10:12:00 [facility] 2021-08-13 Pongvachararak, Brendan [facility] METABOLIC PANEL 04:52:00 Brogue CBC W/PLT COUNT & AUTO 2021-08-13 Pongmanavarak, Brendan [facility] DIFFERENTIAL 04:52:00 [place] MAGNESIUM 2021-08-13 Isaac Meehan [facility] edical 04:52:00 Ardara CBC W/PLT COUNT & AUTO 2021-08-13 Pongvachararak, Brendan [facility] DIFFERENTIAL 04:52:00 Brogue BASIC METABOLIC PANEL 2021-08-12 CesarZheng [facility] Medical (7) 19:40:00 Ardara TRANSFUSE 2021-08-12 Isaac Meehan [facility] edical LEUKO-REDUCED RED 14:28:00 Ardara BLOOD CELLS TYPE AND SCREEN, 2021-08-12 [facility] 10:56:00 [facility] 2021-08-12 Garrettgbogdan [facility]rendan [facility] METABOLIC PANEL 02:57:00 Brogue CBC W/PLT COUNT & AUTO 2021-08-12 Patrickk, Brendan [facility] DIFFERENTIAL 02:57:00 [facility] FERRITIN 2021-08-12 Cesar, Zheng [facility] 02:57:00 Ardara MAGNESIUM 2021-08-12 Isaac Meehan [facility] 02:57:00 Ardara CBC W/PLT COUNT & AUTO 2021-08-12 Patrickmckay, Brendan [facility] DIFFERENTIAL 02:57:00 [place]gue BASIC METABOLIC PANEL 2021-08-11 Cesar, Zheng [facility] (7) 18:00:00 Ardara MAGNESIUM 2021-08-11 Cesar, Zheng [facility] 18:00:00 Ardara 2D ECHO W/ DOPPLER 2021-08-11 Isaac Meehan [facility] (CW/PW/COLOR) 13:37:08 Ardara COMPREHENSIVE 2021-08-11 Micaela Brendan [facility] METABOLIC PANEL 04:42:00 [place] CBC W/PLT COUNT & AUTO 2021-08-11 Patrickmckay, [facility] DIFFERENTIAL 04:42:00 [place] HEMOGLOBIN A1C 2021-08-11 Micaela[facility] 04:42:00 [place] LIPID PANEL 2021-08-11 Micaela, [facility] 04:42:00 [facility] MAGNESIUM 2021-08-11 Cesar, Zheng [facility] 04:42:00 Ardara IRON, TIBC, % SAT. 2021-08-11 Cesar, Zheng [facility] (WITHOUT FERRITIN) 04:42:00 Ardara CBC W/PLT COUNT & AUTO 2021-08-11 Garrettgmanavarak, [facility] DIFFERENTIAL 04:42:00 [place]gue CARDIAC CATH REPORT - 2021-08-11 Provider, Default [facility] 00:[facility]:00 Scanning [facility] EKG-SCANNED 2021-08-11 Provider, Default [facility] 00:[facility] AUTHORIZATION FOR 2020-01-30 Doctor Unassigned, No [facility] RELEASE OF PHI 06:01:00 Name Medical Branch MEDICAL 2019-05-23 Doctor Unassigned, No [facility] RELEASE/CLEARANCE 06:01:00 Name Medical Branch FORMS AUTHORIZATION FOR 2019-05-12 Doctor Unassigned, No [facility] RELEASE OF PHI 06:01:00 Name Medical Branch Breast Reduction [facility] Medical Total Knee Replacement Privil Me dical Hysterectomy [facility] Plan of Care Planned Activity Planned Date Details Comments Source Future Scheduled 2028-01-[address] [facility] [facility] 00:00:00 malignant neoplasm Medical C enter of colon (procedure) [code = 866933416] Future Scheduled 2028-01-[address] [facility] 00:00:00 malignant neoplasm Medical C enter of colon (procedure) [code = 930560539] Future Scheduled 2024-08-[address] [facility]00 (procedure) [facility] [id number]] Future Scheduled 2024-08-[address] [facility] 00:00:00 (procedure) [code [facility] [id number]] Future Scheduled 2024-08-[address] [facility] 00:00[facility]00 (procedure) [code [facility] 39799200] Future Scheduled 2022-02-[address] [facility] (procedure) [code = 80317244] Future Scheduled 2022-02-[address] [facility] (procedure) [code = 95657247] Future Scheduled 2022-02-[address] [facility] (procedure) [code = 41839856] Future Scheduled 2022-02-06 [facility] 08:04:10 malignant neoplasm [facility] cervix (procedure) [code = 517385533] Future Scheduled 2022-02-06 BREAST CANCER [facility] 08:04:10 SCREENING [code = Hospital BREAST CANCER SCREENING] Future Scheduled 2022-02-06 [facility] 08:04:10 SCREENING [code = Hospital COLONOSCOPY SCREENING] Future Scheduled 2022-02-06 [facility]ACCINE [facility]:10 [code = INFLUENZA Hospital VACCINE] Future Scheduled 2022-02-06 HEPATITIS B [facility]ES [facility] 08:04[facility]10 (1 of 3 - 3-dose Hospital series) [code = HEPATITIS B VACCINES (1 of 3 - 3-dose series)] Future Scheduled 2022-02-06 COVID-[address] [facility] 08:04:10 (#1) [code = Hospital COVID-19 VACCINE (#1)] Future Scheduled 2022-02-06 Pneumococcal [facility] 08:04:10 Vaccine: [facility] (0 to 5 Years) and At-Risk Patients (6 to 64 Years) (1 - PCV) [code = Pneumococcal Vaccine: Pediatrics (0 to 5 Years) and At-Risk Patients (6 to 64 Years) (1 - PCV)] Future Scheduled 2022-02-06 Hepatitis C [facility] 08:04:10 screening Hospital (procedure) [code = [id number]] Future Scheduled 2022-02-06 SHINGLES VACCINES (1 [facility] 08:04:10 of 2) [code = Hospital SHINGLES VACCINES (1 of 2)] Future Scheduled 2021-12-24 IMM Influenza [facility] 00:00:00 Seasonal (>/= 19 yrs) [code = IMM Influenza Seasonal (>/= 19 yrs)] Future Scheduled 2021-12-24 IMM Influenza [facility] 00:00:00 Seasonal (>/= 19 yrs) [code = IMM Influenza Seasonal (>/= 19 yrs)] Future Scheduled 2021-12-24 IMM Influenza [facility] 00:00:00 Seasonal (>/= 19 yrs) [code = IMM Influenza Seasonal (>/= 19 yrs)] Future Scheduled 2021-12-24 IMM Influenza [facility] 00:00:00 Seasonal (>/= 19 yrs) [code = IMM Influenza Seasonal (>/= 19 yrs)] Future Scheduled 2021-12-24 IMM Influenza [facility] 00:00:00 Seasonal (>/= 19 yrs) [code = IMM Influenza Seasonal (>/= 19 yrs)] Future Scheduled 2021-12-24 IMM Influenza [facility] 00:00:00 Seasonal (>/= 19 yrs) [code = IMM Influenza Seasonal (>/= 19 yrs)] Future Scheduled 2021-12-24 IMM Influenza [facility] 00:00:00 Seasonal (>/= 19 yrs) [code = IMM Influenza Seasonal (>/= 19 yrs)] Future Scheduled 2021-12-24 IMM Influenza [facility] 00:00:00 Seasonal (>/= 19 yrs) [code = IMM Influenza Seasonal (>/= 19 yrs)] Future Scheduled 2021-11-[address] [facility] 00:00:00 (Season Ended) [code Medical Center = INFLUENZA VACCINE (Season Ended)] Future Scheduled 2021-11-[address] [facility] 00:00:00 (Season Ended) [code Medical Center = INFLUENZA VACCINE (Season Ended)] Future Scheduled 2021-11-[address] [facility] 00:00:00 (#1) [code = Medical Center INFLUENZA VACCINE (#1)] Future Scheduled 2021-10-13 COVID-[address] [facility] 06:56:00 (#1) [code = Hospital COVID-19 VACCINE (#1)] Future Scheduled 2021-10-13 Pneumococcal [facility] 06:56:00 Vaccine: [facility] (0 to 5 Years) and At-Risk Patients (6 to 64 Years) (1 - PCV) [code = Pneumococcal Vaccine: Pediatrics (0 to 5 Years) and At-Risk Patients (6 to 64 Years) (1 - PCV)] Future Scheduled 2021-10-13 [facility]atitis C [facility] 06:56:00 screening Hospital (procedure) [code = [id number]] Future Scheduled 2021-10-13 SHINGLES VACCINES (1 [facility] 06[facility]:00 of 2) [code = Hospital SHINGLES VACCINES (1 of 2)] Future Scheduled 2021-10-13 [facility] 06:[facility]:00 malignant neoplasm [facility] of cervix (procedure) [code = 832487238] Future Scheduled 2021-10-13 BREAST CANCER [facility] 06:56:00 SCREENING [code = Hospital BREAST CANCER SCREENING] Future Scheduled 2021-10-13 COL[facility]OSCOPY [facility] 06:56:00 SCREENING [code = Hospital COLONOSCOPY SCREENING] Future Scheduled 2021-10-13 [facility]ZA VACCINE [facility] 06:56:00 [code = INFLUENZA Hospital VACCINE] Future Scheduled 2021-09-21 COVID-19 VACCINE (1) [facility] 10:27:20 [code = COVID-19 Hospital VACCINE (1)] Future Scheduled 2021-09-21 Pneumococcal [facility] 10:27:20 Vaccine: [facility] (0 to 5 Years) and At-Risk Patients (6 to 64 Years) (1 - PCV) [code = Pneumococcal Vaccine: Pediatrics (0 to 5 Years) and At-Risk Patients (6 to 64 Years) (1 - PCV)] Future Scheduled 2021-09-21 Hepatitis C [facility] 10:27:20 screening Hospital (procedure) [code = [id number]] Future Scheduled 2021-09-21 SHINGLES VACCINES (1 [facility] 10:27:20 of 2) [code = Hospital SHINGLES VACCINES (1 of 2)] Future Scheduled 2021-09-21 [facility] 10:27:20 malignant neoplasm [facility] of cervix (procedure) [code = 161721434] Future Scheduled 2021-09-21 BREAST CANCER [facility] 10:27:20 SCREENING [code = Hospital BREAST CANCER SCREENING] Future Scheduled 2021-09-21 [facility]OSCOPY [facility] 10:27:20 SCREENING [code = Hospital COLONOSCOPY SCREENING] Future Scheduled 2021-09-21 [facility]ZA VACCINE [facility] 10:27:20 [code = INFLUENZA Hospital VACCINE] Future Scheduled 2021-08-25 COVID-19 VACCINE (1) [facility] 09:02:31 [code = COVID-19 Hospital VACCINE (1)] Future Scheduled 2021-08-25 Pneumococcal [facility] 09:02:31 Vaccine: [facility] (0 to 5 Years) and At-Risk Patients (6 to 64 Years) (1 - PCV) [code = Pneumococcal Vaccine: Pediatrics (0 to 5 Years) and At-Risk Patients (6 to 64 Years) (1 - PCV)] Future Scheduled 2021-08-25 [facility] 09:02:31 screening Hospital (procedure) [code = [id number]] Future Scheduled 2021-08-25 SHINGLES VACCINES (1 [facility] 09:02:31 of 2) [code = Hospital SHINGLES VACCINES (1 of 2)] Future Scheduled 2021-08-25 [facility] 09:02:31 malignant neoplasm Hospital of cervix (procedure) [code = 621282518] Future Scheduled 2021-08-25 BREAST CANCER [facility] 09:02:31 SCREENING [code = Hospital BREAST CANCER SCREENING] Future Scheduled 2021-08-25 [facility]OSCOPY [facility] 09:02:31 SCREENING [code = Hospital COLONOSCOPY SCREENING] Future Scheduled 2021-08-25 [facility]ZA VACCINE [facility] 09:02:31 [code = INFLUENZA Hospital VACCINE] Future Scheduled 2021-08-25 COVID-19 VACCINE (1) [facility] 09:02:31 [code = COVID-19 Hospital VACCINE (1)] Future Scheduled 2021-08-25 Pneumococcal [facility] 09:02:31 Vaccine: [facility] (0 to 5 Years) and At-Risk Patients (6 to 64 Years) (1 - PCV) [code = Pneumococcal Vaccine: Pediatrics (0 to 5 Years) and At-Risk Patients (6 to 64 Years) (1 - PCV)] Future Scheduled 2021-08-25 Hepatitis C [facility] 09:02:31 screening Hospital (procedure) [code = 210402737] Future Scheduled 2021-08-25 SHINGLES VACCINES (1 [facility] 09:02:31 of 2) [code = Hospital SHINGLES VACCINES (1 of 2)] Future Scheduled 2021-08-25 [facility] for [facility] 09:02:31 malignant neoplasm [facility] of cervix (procedure) [code = 467460594] Future Scheduled 2021-08-25 BREAST CANCER [facility] 09:02:31 SCREENING [code = Hospital BREAST CANCER SCREENING] Future Scheduled 2021-08-25 [facility]OSCOPY [facility] 09:02:31 SCREENING [code = Hospital COLONOSCOPY SCREENING] Future Scheduled 2021-08-25 [facility]ZA VACCINE [facility] 09:02:31 [code = INFLUENZA Hospital VACCINE] Future Scheduled 2021-08-25 COVID-19 VACCINE (1) [facility] 09:02:31 [code = COVID-19 Hospital VACCINE (1)] Future Scheduled 2021-08-25 Pneumococcal [facility] 09:02:31 Vaccine: [facility] (0 to 5 Years) and At-Risk Patients (6 to 64 Years) (1 - PCV) [code = Pneumococcal Vaccine: Pediatrics (0 to 5 Years) and At-Risk Patients (6 to 64 Years) (1 - PCV)] Future Scheduled 2021-08-25 [facility] C [facility] 09:02:31 screening Hospital (procedure) [code = 253583697] Future Scheduled 2021-08-25 COVID-19 VACCINE (1) [facility] 09:02:31 [code = COVID-19 Hospital VACCINE (1)] Future Scheduled 2021-08-25 SHINGLES VACCINES (1 [facility] 09:02:31 of 2) [code = Hospital SHINGLES VACCINES (1 of 2)] Future Scheduled 2021-08-25 [facility] 09:02:31 malignant neoplasm [facility] cervix (procedure) [code = 349369530] Future Scheduled 2021-08-25 BREAST CANCER [facility] 09:02:31 SCREENING [code = Hospital BREAST CANCER SCREENING] Future Scheduled 2021-08-25 [facility]OSCOPY [facility] 09:02:31 SCREENING [code = Hospital COLONOSCOPY SCREENING] Future Scheduled 2021-08-25 [facility]ZA VACCINE [facility] 09:02:31 [code = INFLUENZA Hospital VACCINE] Future Scheduled 2021-08-25 COVID-19 VACCINE (1) [facility] 09:02:31 [code = COVID-19 Hospital VACCINE (1)] Future Scheduled 2021-08-25 Pneumococcal [facility] 09:02:31 Vaccine: [facility] (0 to 5 Years) and At-Risk Patients (6 to 64 Years) (1 - PCV) [code = Pneumococcal Vaccine: Pediatrics (0 to 5 Years) and At-Risk Patients (6 to 64 Years) (1 - PCV)] Future Scheduled 2021-08-25 [facility] 09:02:31 screening Hospital (procedure) [code = 934620315] Future Scheduled 2021-08-25 SHINGLES VACCINES (1 [facility] 09:02:31 of 2) [code = Hospital SHINGLES VACCINES (1 of 2)] Future Scheduled 2021-08-25 [facility] 09:02:31 malignant neoplasm [facility] cerv[facility] (procedure) [code = 528412729] Future Scheduled 2021-08-25 Pneumococcal [facility] 09:02:31 Vaccine: [facility] (0 to 5 Years) and At-Risk Patients (6 to 64 Years) (1 - PCV) [code = Pneumococcal Vaccine: Pediatrics (0 to 5 Years) and At-Risk Patients (6 to 64 Years) (1 - PCV)] Future Scheduled 2021-08-25 BREAST CANCER [facility] 09:02:31 SCREENING [code = Hospital BREAST CANCER SCREENING] Future Scheduled 2021-08-25 [facility]OSCOPY [facility] 09:02:31 SCREENING [code = Hospital COLONOSCOPY SCREENING] Future Scheduled 2021-08-25 [facility]ZA [facility]ACCINE [facility] 09:02:31 [code = INFLUENZA Hospital VACCINE] Future Scheduled 2021-08-25 COVID-19 VACCINE (1) [facility] 09:02:31 [code = COVID-19 Hospital VACCINE (1)] Future Scheduled 2021-08-25 Pneumococcal [facility] 09:02:31 Vaccine: [facility] (0 to 5 Years) and At-Risk Patients (6 to 64 Years) (1 - PCV) [code = Pneumococcal Vaccine: Pediatrics (0 to 5 Years) and At-Risk Patients (6 to 64 Years) (1 - PCV)] Future Scheduled 2021-08-25 [facility] C [facility] 09:02:31 screening Hospital (procedure) [code = 697849083] Future Scheduled 2021-08-25 SHINGLES VACCINES (1 [facility] 09:02:31 of 2) [code = Hospital SHINGLES VACCINES (1 of 2)] Future Scheduled 2021-08-25 [facility] 09:02:31 malignant [facility]oplasm [facility] (procedure) [code = 739665792] Future Scheduled 2021-08-25 BREAST CANCER [facility] 09:02:31 SCREENING [code = Hospital BREAST CANCER SCREENING] Future Scheduled 2021-08-25 [facility]OSCOPY [facility] 09:02:31 SCREENING [code = Hospital COLONOSCOPY SCREENING] Future Scheduled 2021-08-25 Hep[facility] C [facility] 09:02:31 screening Hospital (procedure) [code = 668818667] Future Scheduled 2021-08-25 [facility]ZA [facility]ACCINE [facility] 09:02:31 [code = INFLUENZA Hospital VACCINE] Future Scheduled 2021-08-25 COVID-19 VACCINE (1) [facility] 09:02:31 [code = COVID-19 Hospital VACCINE (1)] Future Scheduled 2021-08-25 Pneumococcal [facility] 09:02:31 Vaccine: [facility] (0 to 5 Years) and At-Risk Patients (6 to 64 Years) (1 - PCV) [code = Pneumococcal Vaccine: Pediatrics (0 to 5 Years) and At-Risk Patients (6 to 64 Years) (1 - PCV)] Future Scheduled 2021-08-25 [facility] C [facility] 09:02:31 screening Hospital (procedure) [code = 668449723] Future Scheduled 2021-08-25 SHINGLES VACCINES (1 [facility] 09:02:31 of 2) [code = Hospital SHINGLES VACCINES (1 of 2)] Future Scheduled 2021-08-25 [facility] 09:02:31 [facility] neoplasm [facility] cerv[facility] (procedure) [code = 443094020] Future Scheduled 2021-08-25 BREAST CANCER [facility] 09:02:31 SCREENING [code = Hospital BREAST CANCER SCREENING] Future Scheduled 2021-08-25 [facility]OSCOPY [facility] 09:02:31 SCREENING [code = Hospital COLONOSCOPY SCREENING] Future Scheduled 2021-08-25 [facility]ZA VACCINE [facility] 09:02:31 [code = INFLUENZA Hospital VACCINE] Future Scheduled 2021-08-25 COVID-19 VACCINE (1) [facility] 09:02:31 [code = COVID-19 Hospital VACCINE (1)] Future Scheduled 2021-08-25 SHINGLES VACCINES (1 [facility] 09:02:31 of 2) [code = Hospital SHINGLES VACCINES (1 of 2)] Future Scheduled 2021-08-25 Pneumococcal [facility] 09:02:31 Vaccine: [facility] (0 to 5 Years) and At-Risk Patients (6 to 64 Years) (1 - PCV) [code = Pneumococcal Vaccine: Pediatrics (0 to 5 Years) and At-Risk Patients (6 to 64 Years) (1 - PCV)] Future Scheduled 2021-08-25 Hep[facility] C [facility] 09:02:31 screening Hospital (procedure) [code = 748673348] Future Scheduled 2021-08-25 SHINGLES VACCINES (1 [facility] 09:02:31 of 2) [code = Hospital SHINGLES VACCINES (1 of 2)] Future Scheduled 2021-08-25 [facility] 09:02:31 [facility] neoplasm Hospital of cervix (procedure) [code = 906283155] Future Scheduled 2021-08-25 BREAST CANCER [facility] 09:02:31 SCREENING [code = Hospital BREAST CANCER SCREENING] Future Scheduled 2021-08-25 [facility]OSCOPY [facility] 09:02:31 SCREENING [code = Hospital COLONOSCOPY SCREENING] Future Scheduled 2021-08-25 [facility]ZA VACCINE [facility] 09:02:31 [code = INFLUENZA Hospital VACCINE] Future Scheduled 2021-08-25 [facility] 09:02:31 [facility]oplasm [facility] cervix (procedure) [code = 042221200] Future Scheduled 2021-08-25 BREAST CANCER [facility] 09:02:31 SCREENING [code = Hospital BREAST CANCER SCREENING] Future Scheduled 2021-08-25 [facility]COPY [facility] 09:02:31 SCREENING [code = Hospital COLONOSCOPY SCREENING] Future Scheduled 2021-08-25 [facility]ZA [facility]ACCINE [facility] 09:02:31 [code = INFLUENZA Hospital VACCINE] Future Scheduled 2021-03-[address] [facility] 00:00:00 WELLNESS (YEAR 2 or Medical Center FIRST YEAR if no IPPE) [code = MEDICARE ANNUAL WELLNESS (YEAR 2 or FIRST YEAR if no IPPE)] Future Scheduled 2021-03-[address] [facility] 00:00:00 (12+) [code = Medical Center DEPRESSION SCREENING (12+)] Future Scheduled 2021-03-[address] [facility] 00:00:00 (12+) [code = Medical Center DEPRESSION SCREENING (12+)] Future Scheduled 2021-03-[address] [facility] 00:00:00 (12+) [code = Medical Center DEPRESSION SCREENING (12+)] Future Scheduled 2020-12-24 IMM Influenza [facility] 00:00:00 Seasonal (>/= 19 yrs) [code = IMM Influenza Seasonal (>/= 19 yrs)] Future Scheduled 2020-12-24 IMM Influenza [facility] 00:00:00 Seasonal (>/= 19 yrs) [code = IMM Influenza Seasonal (>/= 19 yrs)] Future Scheduled 2020-12-24 IMM Influenza [facility] 00:00:00 Seasonal (>/= 19 yrs) [code = IMM Influenza Seasonal (>/= 19 yrs)] Future Scheduled 2020-11-[address] [facility] 00:[facility]:00 malignant neoplasm [facility] of breast (procedure) [code = 962612753] Future Scheduled 2020-11-[address] [facility] 00:00:00 malignant neoplasm [facility] of breast (procedure) [code = 901065114] Future Scheduled 2020-11-[address] [facility] 00:00:00 malignant neoplasm [facility] of breast (procedure) [code = 150716329] Future Scheduled 2020-06-23 [facility] 00:[facility]:00 malignant neoplasm of cervix (procedure) [code = 628064306] Future Scheduled 2020-06-23 [facility] 00:00:00 malignant neoplasm of cervix (procedure) [code = 460390089] Future Scheduled 2020-06-23 [facility] 00:00:00 malignant neoplasm of cervix (procedure) [code = 237725805] Future Scheduled 2020-06-23 [facility] 00:00:00 malignant neoplasm of cervix (procedure) [code = 149637345] Future Scheduled 2020-06-23 [facility] 00:00:00 malignant neoplasm of cervix (procedure) [code = 574978083] Future Scheduled 2020-06-23 [facility] 00:00:00 malignant neoplasm of cervix (procedure) [code = 175695019] Future Scheduled 2020-06-23 [facility] 00:00:00 malignant neoplasm of cervix (procedure) [code = 692160857] Future Scheduled 2020-06-23 [facility] 00:00:00 malignant neoplasm of cervix (procedure) [code = 822019632] Future Scheduled 2020-06-23 [facility] 00:00:00 malignant neoplasm of cervix (procedure) [code = 217629113] Future Scheduled 2020-06-23 [facility] 00:00:00 malignant neoplasm of cervix (procedure) [code = 601090195] Future Scheduled 2020-06-23 [facility] 00:00:00 malignant neoplasm of cervix (procedure) [code = 196491804] Future Scheduled 2019-03-[address] [facility] 00:00:00 malignant neoplasm [facility] of colon (procedure) [code = 679118391] Future Scheduled 2019-03-[address] [facility] 00:00:00 malignant neoplasm [facility] enter of colon (procedure) [code = 764879025] Future Scheduled 2019-03-[address] [facility] 00:00:00 malignant neoplasm [facility] of colon (procedure) [code = 504026416] Future Scheduled 2019-03-[address] [facility] 00:00:00 malignant neoplasm [facility] enter of colon (procedure) [code = 785001950] Future Scheduled 2019-03-[address] [facility] 00:00:00 malignant neoplasm [facility] enter of colon (procedure) [code = 485540656] Future Scheduled 2018-11-[address] [facility] 00:00:00 WELLNESS (YEAR 2 or Medical Center FIRST YEAR if no IPPE) [code = MEDICARE ANNUAL WELLNESS (YEAR 2 or FIRST YEAR if no IPPE)] Future Scheduled 2018-11-[address] [facility] 00:00:00 WELLNESS (YEAR 2 or Medical Center FIRST YEAR if no IPPE) [code = MEDICARE ANNUAL WELLNESS (YEAR 2 or FIRST YEAR if no IPPE)] Future Scheduled 2017-07-08 [facility] 00:00:00 (Yearly) [code = Breast Cancer Scrn (Yearly)] Future Scheduled 2017-07-08 [facility] 00:00:00 (Yearly) [code = Breast Cancer Scrn (Yearly)] Future Scheduled 2017-07-08 [facility] 00:00:00 (Yearly) [code = Breast Cancer Scrn (Yearly)] Future Scheduled 2017-07-08 [facility] 00:00:00 (Yearly) [code = Breast Cancer Scrn (Yearly)] Future Scheduled 2017-07-08 [facility] 00:00:00 (Yearly) [code = Breast Cancer Scrn (Yearly)] Future Scheduled 2017-07-08 [facility] 00:00:00 (Yearly) [code = Breast Cancer Scrn (Yearly)] Future Scheduled 2017-07-08 [facility] 00:00:00 (Yearly) [code = Breast Cancer Scrn (Yearly)] Future Scheduled 2017-07-08 [facility] 00:00:00 (Yearly) [code = Breast Cancer Scrn (Yearly)] Future Scheduled 2017-07-08 [facility] 00:00:00 (Yearly) [code = Breast Cancer Scrn (Yearly)] Future Scheduled 2017-07-08 [facility] 00:00:00 (Yearly) [code = Breast Cancer Scrn (Yearly)] Future Scheduled 2017-07-08 [facility] 00:00:00 (Yearly) [code = Breast Cancer Scrn (Yearly)] Future Scheduled 2017-04-21 [facility]:00 malignant neoplasm of colon (procedure) [code = 690481912] Future Scheduled 2017-04-21 [facility] 00:00:00 malignant neoplasm of colon (procedure) [code = 966084028] Future Scheduled 2017-04-21 [facility] 00:[facility]:00 malignant neoplasm of colon (procedure) [code = 585208996] Future Scheduled 2017-04-21 [facility] 00:00:00 malignant neoplasm of colon (procedure) [code = 984219823] Future Scheduled 2017-04-21 [facility] 00:00:00 malignant neoplasm of colon (procedure) [code = 666660268] Future Scheduled 2017-04-21 [facility] 00:00:00 malignant neoplasm of colon (procedure) [code = 482026381] Future Scheduled 2017-04-21 [facility] 00:[facility]:00 malignant neoplasm of colon (procedure) [code = 182863139] Future Scheduled 2017-04-21 [facility] 00:00:00 malignant neoplasm of colon (procedure) [code = 055212802] Future Scheduled 2017-04-21 [facility] 00:00:00 malignant neoplasm of colon (procedure) [code = 408363868] Future Scheduled 2017-04-21 [facility] 00:00:00 malignant neoplasm of colon (procedure) [code = 602581829] Future Scheduled 2017-04-21 [facility] 00:00:00 malignant neoplasm of colon (procedure) [code = 215121950] Future Scheduled 2016-01-[address] [facility] 00:00:00 0-64 YRS (2 - PPSV23 Medical Center or PCV20) [code = PNEUMOCOCCAL VACCINE 0-64 YRS (2 - PPSV23 or PCV20)] Future Scheduled 2015-03-[address] [facility] 00:00:00 0-64 YRS (1 of 2 - Medical C enter PPSV23) [code = PNEUMOCOCCAL VACCINE 0-64 YRS (1 of 2 - PPSV23)] Future Scheduled 2015-03-[address] [facility] Test 00:00:00 0-64 YRS (1 of 2 - Medical C enter PPSV23) [code = PNEUMOCOCCAL VACCINE 0-64 YRS (1 of 2 - PPSV23)] Future Scheduled 2013 SHINGLES VACCINES ([address] [facility] 00:00:00 of 2) [code = Medical Center SHINGLES VACCINES (1 of 2)] Future Scheduled 2013 SHINGLES VACCINES ([address] [facility] 00:00:00 of 2) [code = Medical Center SHINGLES VACCINES (1 of 2)] Future Scheduled 2013 SHINGLES VACCINES ([address] [facility] 00:00:00 of 2) [code = Medical Center SHINGLES VACCINES (1 of 2)] Future Scheduled 1993 [facility] 00:[facility]:00 malignant neoplasm of cervix (procedure) [code = 209452942] Future Scheduled 1993 [facility] 00:00:00 malignant neoplasm of cervix (procedure) [code = 227765652] Future Scheduled 1993 [facility] 00:00:00 malignant neoplasm of cervix (procedure) [code = 193995636] Future Scheduled 1993 [facility] 00:00:00 malignant neoplasm of cervix (procedure) [code = 473559343] Future Scheduled 1993 [facility] 00:00:00 malignant neoplasm of cervix (procedure) [code = 156957263] Future Scheduled 1993 [facility] 00:00:00 malignant neoplasm of cervix (procedure) [code = 687708326] Future Scheduled 1993 [facility] 00:00:00 malignant neoplasm of cervix (procedure) [code = 929905607] Future Scheduled 1993 [facility] 00:00:00 malignant neoplasm of cervix (procedure) [code = 153892812] Future Scheduled 1993 [facility] 00:00:00 malignant neoplasm of cervix (procedure) [code = 735127024] Future Scheduled 1993 [facility] 00:00:00 malignant neoplasm of cervix (procedure) [code = 007423540] Future Scheduled 1993 [facility] 00:00:00 malignant neoplasm of cervix (procedure) [code = 970657852] Future Scheduled [address] [facility] 00:00:00 malignant neoplasm [facility] of cervix (procedure) [code = 070165112] Future Scheduled [address] [facility] 00:00:00 malignant neoplasm [facility] enter of cervix (procedure) [code = 014135443] Future Scheduled [address] [facility] 00:00:00 malignant neoplasm [facility] enter of cervix (procedure) [code = 439665737] Future Scheduled 1982 DTAP/TDAP/TD [facility] VACCINES (1 - Tdap) [facility] Center [code = DTAP/TDAP/TD VACCINES (1 - Tdap)] Future Scheduled 1982 DTAP/TDAP/TD [facility] 00:[facility]:00 VACCINES (1 - Tdap) [facility] Center [code = DTAP/TDAP/TD VACCINES (1 - Tdap)] Future Scheduled 1982 DTAP/TDAP/TD [facility] 00:[facility]:00 VACCINES (1 - Tdap) [facility] Center [code = DTAP/TDAP/TD VACCINES (1 - Tdap)] Future Scheduled [address] EYE EXAM [facility] 00:00:00 [code = DIABETIC EYE Medical Center EXAM] Future Scheduled [address] [facility] 00:[facility]:00 examination [facility] Center (regime/therapy) [code = 149068542] Future Scheduled 1973 Urine screening for [facility] 00:00:00 protein (procedure) [facility] Center [code = 689952750] Future Scheduled [address] EYE EXAM [facility] 00:00:00 [code = DIABETIC EYE Medical Center EXAM] Future Scheduled [address] [facility] 00:[facility]:00 examination Medical Center (regime/therapy) [code = 200313027] Future Scheduled 1973 Urine screening for [facility] Test 00:00:00 protein (procedure) [facility] [code = 767827951] Future Scheduled [address] EXAM [facility] 00:00:00 [code = DIABETIC EYE [facility] EXAM] Future Scheduled [address] [facility] (regime/therapy) [code = 382126005] Future Scheduled 1973 Urine screening for [facility] Test 00:00:00 protein (procedure) [facility] [code = 211356900] Future Scheduled 1968 COVID-19 Vaccine [facility] Test 00:00:00 (#1) [code = COVID-19 Vaccine (#1)] Future Scheduled 1968 COVID-19 Vaccine [facility] Test 00:00:00 (#1) [code = COVID-19 Vaccine (#1)] Future Scheduled 1968 COVID-19 Vaccine [facility] Test 00:00:00 (#1) [code = COVID-19 Vaccine (#1)] Future Scheduled 1968 COVID-19 Vaccine [facility] Test 00:00:00 (#1) [code = COVID-19 Vaccine (#1)] Future Scheduled 1968 COVID-19 Vaccine [facility] Test 00:00:00 (#1) [code = COVID-19 Vaccine (#1)] Future Scheduled 1968 COVID-19 Vaccine [facility] Test 00:00:00 (#1) [code = COVID-19 Vaccine (#1)] Future Scheduled 1968 COVID-19 Vaccine [facility] Test 00:00:00 (#1) [code = COVID-19 Vaccine (#1)] Future Scheduled 1968 COVID-19 Vaccine [facility] Test 00:00:00 (#1) [code = COVID-19 Vaccine (#1)] Future Scheduled 1968 COVID-19 VACCINE (1) [facility] 00:00:00 [code = COVID-[address] VACCINE (1)] Future Scheduled 1968 COVID-19 VACCINE (1) [facility] Test 00:00:00 [code = COVID-[address] VACCINE (1)] Future Scheduled 1963 COVID-19 Vaccine [facility] Test 00:00:00 (#1) [code = COVID-19 Vaccine (#1)] Future Scheduled 1963 COVID-19 Vaccine [facility] Test 00:00:00 (#1) [code = COVID-19 Vaccine (#1)] Future Scheduled 1963 COVID-19 Vaccine [facility] Test 00:00:00 (#1) [code = COVID-19 Vaccine (#1)] Future Scheduled 1963 COVID-[address] [facility] Test 00:00:00 (#1) [facility] COVID-19 VACCINE (#1)] Future Scheduled 1963 Fluoride Varnish [facility] Test 00:00:00 [code = Fluoride Varnish] Future Scheduled [address] [facility] 00:00:00 (combo) [code = CT Medical C enter Colonography (combo)] Future Scheduled [address] [facility] 00:00:00 malignant neoplasm Medical C enter of colon (procedure) [code = 098058763] Future Scheduled [address] [facility] 00:00:00 malignant neoplasm Medical C enter of colon (procedure) [code = 341753030] Future Scheduled 1963 Sigmoidoscopy [code [facility] Test 00:00:00 = Sigmoidoscopy] Medical [facility] Future Scheduled [address] [facility] 00:00:00 (combo) [code = CT Medical C enter Colonography (combo)] Future Scheduled [address] [facility] 00:00:00 malignant neoplasm Medical C enter of colon (procedure) [code = 485409071] Future Scheduled [address] [facility] 00:00:00 malignant neoplasm Medical C enter of colon (procedure) [code = 022087460] Future Scheduled 1963 Sigmoidoscopy [code [facility] Test 00:00:00 = Sigmoidoscopy] Medical [facility] Future Scheduled [address] [facility] 00:00:00 (combo) [code = CT Medical C enter Colonography (combo)] Future Scheduled [address] [facility] 00:00:00 malignant neoplasm Medical C enter of colon (procedure) [code = 234128584] Future Scheduled 1963 Sigmoidoscopy [code [facility] Test 00:00:00 = Sigmoidoscopy] Medical Krista ter Future Scheduled ORT - XR SHOULDER Ordered: [facility] Test BILAT 4V (CHARGE 11/13/2019 of Medicine ONLY) [code = 67760] Future Scheduled ORT - XR SHOULDER Ordered: [facility] Test BILAT 4V (CHARGE 12/25/2019 of Medicine ONLY) [code = 65691] Future Scheduled COLON CANCER [facility] Test SCREENING: of Medicine COLONOSCOPY [code = COLON CANCER SCREENING: COLONOSCOPY] Future Scheduled MAMMOGRAM ANNUAL [facility] Test [code = MAMMOGRAM of Medicin e ANNUAL] Future Scheduled TETANUS SHOT (ADULT) [facility] Test [code = TETANUS SHOT of Medi cine (ADULT)] Future Scheduled Diabetic foot [facility] Col lege Test examination of Medicine (regime/therapy) [code = 107597686] Future Scheduled ANNUAL DIABETIC [facility] C ollege Test RETINOPATHY of Medicine SCREENING [code = ANNUAL DIABETIC RETINOPATHY SCREENING] Future Scheduled BMI FOLLOW UP PLAN [facility] Test [code = BMI FOLLOW of Medici ne UP PLAN] Future Scheduled HEPATITIS C [facility] Test SCREENING [code = of Medicin e HEPATITIS C SCREENING] Future Scheduled HIV SCREENING [code [facility] Test = HIV SCREENING] of Medicine Future Scheduled COLON CANCER [facility] Test SCREENING: of Medicine COLONOSCOPY [code = COLON CANCER SCREENING: COLONOSCOPY] Future Scheduled CERVICAL CANCER [facility] C ollege Test SCREENING 3 YEAR of Medicine FOLLOW UP [code = CERVICAL CANCER SCREENING 3 YEAR FOLLOW UP] Future Scheduled MEDICARE AWV [facility] Test (Initial) [code = of Medicin e MEDICARE AWV (Initial)] Future Scheduled ZOSTER VACCINE (1 of [employer] Test 2) [code = ZOSTER of Medicin e VACCINE (1 of 2)] Future Scheduled FLU VACCINE > 6 [facility] C [facility]lege Test MONTHS [code = FLU of Medici ne VACCINE > 6 MONTHS] Future Scheduled MAMMOGRAM ANNUAL [facility] Test [code = MAMMOGRAM of Medicin e ANNUAL] Future Scheduled TETANUS SHOT (ADULT) [employer] Test [code = TETANUS SHOT of Medi cine (ADULT)] Future Scheduled BMI FOLLOW UP PLAN [employer] Test [code = BMI FOLLOW of Medici ne UP PLAN] Future Scheduled ORT - XR SHOULDER Ordered: [facility] Test BILAT 4V (CHARGE 01/22/2020 of Medicine ONLY) [code = 61599] Future Scheduled ORT - XR ELBOW LEFT Ordered: [employer] Test 3V (CHARGE ONLY) 01/22/2020 of Medicine [code = 74121] Future Scheduled COLON CANCER [facility] Test SCREENING: of Medicine COLONOSCOPY [code = COLON CANCER SCREENING: COLONOSCOPY] Future Scheduled MAMMOGRAM ANNUAL [facility] Test [code = MAMMOGRAM of Medicin e ANNUAL] Future Scheduled TETANUS SHOT (ADULT) [employer] Test [code = TETANUS SHOT of Medi cine (ADULT)] Future Scheduled Diabetic foot [facility] Col [facility]ge Test examination of Medicine (regime/therapy) [code = 635897460] Future Scheduled ANNUAL DIABETIC [facility] C [facility]lege Test RETINOPATHY of Medicine SCREENING [code = ANNUAL DIABETIC RETINOPATHY SCREENING] Future Scheduled BMI FOLLOW UP PLAN [employer] Test [code = BMI FOLLOW of Medici ne UP PLAN] Future Scheduled HEPATITIS C [facility] [employer] Test SCREENING [code = of Medicin e HEPATITIS C SCREENING] Future Scheduled HEPATITIS C [facility] Test SCREENING [code = of Medicin e HEPATITIS C SCREENING] Future Scheduled HIV SCREENING [code [employer] Test = HIV SCREENING] of Medicine Future Scheduled CERVICAL CANCER [facility] C ollege Test SCREENING 3 YEAR of Medicine FOLLOW UP [code = CERVICAL CANCER SCREENING 3 YEAR FOLLOW UP] Future Scheduled MEDICARE AWV [facility] [employer] Test (Initial) [code = of Medicin e MEDICARE AWV (Initial)] Future Scheduled ZOSTER VACCINE (1 of [employer] Test 2) [code = ZOSTER of Medicin e VACCINE (1 of 2)] Future Scheduled FLU VACCINE > 6 Postponed from [facility] Test MONTHS [code = FLU 10/25/2019 of Medici ne VACCINE > 6 MONTHS] (Postpone Reason: Patient declined today) Future Scheduled HIV SCREENING [code [employer] Test = HIV SCREENING] of Medicine Future Scheduled CERVICAL CANCER [facility] C ollege Test SCREENING 3 YEAR of Medicine FOLLOW UP [code = CERVICAL CANCER SCREENING 3 YEAR FOLLOW UP] Future Scheduled MEDICARE AWV [facility] Test (Initial) [code = of Medicin e MEDICARE AWV (Initial)] Future Scheduled ZOSTER VACCINE (1 of [employer] Test 2) [code = ZOSTER of Medicin e VACCINE (1 of 2)] Future Scheduled FLU VACCINE > 6 [facility] C ollege Test MONTHS [code = FLU of Medici ne VACCINE > 6 MONTHS] Future Scheduled ORT - XR SHOULDER Ordered: [facility] Test BILAT 4V (CHARGE 11/27/2019 of Medicine ONLY) [code = 67118] Future Scheduled COLON CANCER [facility] [employer] Test SCREENING: of Medicine COLONOSCOPY [code = COLON CANCER SCREENING: COLONOSCOPY] Future Scheduled MAMMOGRAM ANNUAL [facility] Test [code = MAMMOGRAM of Medicin e ANNUAL] Future Scheduled TETANUS SHOT (ADULT) [facility] Test [code = TETANUS SHOT of Medi cine (ADULT)] Future Scheduled Diabetic foot [facility] Col [facility] Test examination of Medicine (regime/therapy) [code = 863878559] Future Scheduled ANNUAL DIABETIC [facility] C ollege Test RETINOPATHY of Medicine SCREENING [code = ANNUAL DIABETIC RETINOPATHY SCREENING] Future Scheduled BMI FOLLOW UP PLAN [facility] Test [code = BMI FOLLOW of Medici ne UP PLAN] Future Scheduled HEPATITIS C [facility] [employer] Test SCREENING [code = of Medicin e HEPATITIS C SCREENING] Future Scheduled HIV SCREENING [code [facility] Test = HIV SCREENING] of Medicine Future Scheduled CERVICAL CANCER [facility] C ollege Test SCREENING 3 YEAR of Medicine FOLLOW UP [code = CERVICAL CANCER SCREENING 3 YEAR FOLLOW UP] Future Scheduled MEDICARE AWV [facility] Test (Initial) [code = of Medicin e MEDICARE AWV (Initial)] Future Scheduled ZOSTER VACCINE (1 of [employer] Test 2) [code = ZOSTER of Medicin e VACCINE (1 of 2)] Future Scheduled FLU VACCINE > 6 [facility] C ollege Test MONTHS [code = FLU of Medici ne VACCINE > 6 MONTHS] Future Scheduled CT SHOULDER RIGHT WO 1 [facility] Test CONTRAST [code = starting of Medicine 68036] 11/13/2019 until 06/12/2020 Encounters Start End Encounter Admission Attending Care Care Encounter Source Date/Time Date/Time Type Type Clinicians Facility Department ID 2022-01-31 Outpatient [facility] [id number] [place] 10:40:55 [id number] [facility] 2022-01-26 Outpatient [facility] [id number] [place] 16:42:22 85746 [facility] 2021-12-06 Outpatient 3 [facility] ENCPL CVA [id number] [facility] 13:41:36 hez, 0913 [facility] [place] 2021-12-02 Outpatient 3 190519 ENCPL CVA [id number] [facility] 11:23:23 0909 [facility] [place] 2021-11-30 Outpatient 3 [id number] ENCPL CVA [id number] [facility] 08:22:36 0907 [facility] [place] 2021-11-29 Outpatient 3 [id number] ENCPL REF [id number] [facility] 14:03:26 0906 [facility] [place] 2021-09-05 Outpatient [facility] Surgery [id number] [facility] 08:47:40 RIAZ 2021-08-30 Outpatient 3 [id number] ENCSL [place] [id number] [facility] 17:17:47 [facility] [place] 2021-08-15 Outpatient 3 [id number] ENCSL REF [id number] [facility] 11:40:53 [facility] [place] 2021-04-22 Outpatient ANANTH [facility] [id number] [place] 15:16:49 [facility] 2021-04-20 Outpatient Rey, STLMLC STLMLC [id number] Common 12:32:19 [facility] 488[address] [facility] 2021-04-20 Outpatient Rey, STLMLC STLMLC [id number] Common 12:22:07 [facility] 720[address] [facility] 2021-04-20 Outpatient Rey, STLMLC STLMLC [id number] Common 12:18:27 [facility] 41870 [facility] 2021-04-20 Outpatient Rey, STLMLC STLMLC [id number] Common 12:05:36 [facility] 23468 [facility] 2021-04-20 Outpatient Rey, STLMLC STLMLC [id number] Common 11:56:16 Jose 56733 [facility] 2021-04-20 Outpatient Rey, STLMLC STLMLC [id number] Common 11:53:33 Jose 11468 [facility] 2021-04-20 Outpatient Rey, STLMLC STLMLC [id number] Common 11:48:09 Jose 16429 [facility] 2021-04-20 Outpatient Rey, STLMLC STLMLC [id number] Common 11:46:26 Jose 33664 [facility] 2021-04-20 Outpatient Rey, STLMLC STLMLC [id number] Common 11:42:27 Jose 95296 [facility] 2021-04-20 Outpatient Rey, STLMLC STLMLC [id number] Common 11:40:16 Jose 33774 [facility] 2021-04-20 Outpatient Rey, STLMLC STLMLC [id number] Common 11:38:56 Jose 25731 [facility] 2021-04-20 Outpatient Rey, STLMLC STLMLC [id number] Common 11:17:01 Jose 58559 [facility] 2021-04-20 Outpatient Rey, STLMLC STLMLC [id number] Common 11:16:49 Jose 51044 [facility] 2021-04-20 Outpatient Rey, STLMLC STLMLC [id number] Common 11:14:02 Jose 70378 [facility] 2021-01-01 [facility] [id number] [facility] 20:20:01 Med 2022-06-06 2022-06-06 Outpatient RUDOLPHNA, [facility] [id number] [place] 10:00:00 10:00:00 [facility] 2022-02-15 2022-02-15 Outpatient LUCEROMikala, [facility] [id number] [place] 09:00:00 09:00:00 [facility] 2022-02-06 2022-02-06 Telephone Jann, [id number] Methodi 00:00:00 00:00:[id number] [facility] 3.430.2.7 Hosp josh .3.007221 l .8 2022-01-31 2022-01-31 Office ANNIE MAGALLANES 6410 [id number] [place] 10:30:00 12:02:52 Visit JOSE GOMEZ 350.1.13.58 [facility] [id number] [id number] 2021-12-07 2021-12-29 Inpatient 3 [place] ENCPL CVA [id number] [facility] 19:35:00 16:20:00 Doni ortega [facility] 2021-12-23 2021-12-23 Outpatient Deja, HCAPM LABO [id number] [facility] 20:05:00 20:05:[address] [place] [address] 2021-12-23 2021-12-23 Outpatient Deja, HCAPM LABO [id number] [facility] 20:05:00 20:05:[address] 2021-12-22 2021-12-22 Outpatient [place] HCAPM LABO [id number] [facility] 00:30:00 00:30:00 Carolann Chavez [facility] 2021-12-02 2021-12-02 Outpatient ANANTH [facility] [id number] [place] 10:30:00 10:30:00 [facility] 2021-11-21 2021-11-21 Outpatient GC_[facility]_Tod PRIV PRIV [id number] [facility] 00:00:00 00:00:00 dUrbano [id number] Medica l 2021-11-16 2021-11-16 Outpatient GC_BAHC_Tod PRIV PRIV 243 [id number] [facility] 00:00:00 00:00:00 Eric [id number] Medica l 2021-11-11 2021-11-11 Outpatient GC_BAHC_Tod PRIV PRIV 243 [id number] [facility] 00:00:00 00:00:00 Eric [id number] Medica l 2021-11-01 2021-11-01 Outpatient GC_BAHC_Tod PRIV PRIV 243 [id number] [facility] 00:00:00 00:00:00 d_J [id number] Medica l 2021-11-01 2021-11-01 Estelle [facility]IV [facility] [id number] [facility] 00:00:00 00:00:00 RAÚL Schneider: Health - Med ical [address] [address] , Ph. 2021-11-01 2021-11-01 Outpatient Wyatt, PRIV PRIV [id number] [id number] 00:00:00 00:00:00 Estelle [id number] 2021-10-28 2021-10-28 Outpatient GC_BAHC_Tod PRIV PRIV 243 [id number] [facility] 00:00:00 00:00:00 d_J [id number] Medica l 2021-10-27 2021-10-27 Outpatient GC_BAHC_Tod PRIV PRIV 243 [id number] [facility] 00:00:00 00:00:00 d_J [id number] Medica l 2021-10-25 2021-10-25 Outpatient GC_BAHC_Tod PRIV PRIV 243 [id number] [facility] 00:00:00 00:00:00 d_J [id number] Medica l 2021-10-25 2021-10-25 Estelle [facility]IV [facility] [id number] [facility] 00:00:00 00:00:00 RAÚL Schneider: Health - Med ical [address] [address] , Ph. 2021-10-25 2021-10-25 Outpatient Wyatt, PRIV PRIV [id number] 00:00:00 00:00:00 Estelle [id number] 2021-10-21 2021-10-21 Outpatient GC_BAHC_Tod PRIV PRIV 243 [id number] [facility] 00:00:00 00:00:00 d_J [id number] Medica l 2021-10-20 2021-10-20 Outpatient GC_BAHC_Tod PRIV PRIV 243 [id number] [facility] 00:00:00 00:00:00 d_J [id number] Medica l 2021-10-20 2021-10-20 Sergio Up [facility] 202 [id number] [facility] 00:00:00 00:00:00 Alfredo [facility] ica MD: [address] [address] , Ph. 2021-10-20 2021-10-20 Outpatient Alfredo [facility] [id number] 00:00:00 00:00:00 Sergio Up [id number] 2021-10-18 2021-10-18 Outpatient GC_BAHC_Tod PRIV PRIV 243 [id number] [facility] 03:56:00 03:56:00 d_J [id number] Medica l 2021-10-18 2021-10-18 [facility] [id number] [facility] 00:00:00 00:00:00 RAÚL Schneider: [facility] - Med ical [address] [address] , Ph. 2021-10-18 2021-10-18 Outpatient Wyatt [facility] PRIV [id number] [id number] 00:00:00 00:00:00 Estelle [id number] 2021-10-16 2021-10-16 Outpatient GC_BAHC_Tod PRIV PRIV 243 [id number] [facility] 04:50:00 04:50:00 d_J [id number] Medica l 2021-10-14 2021-10-14 Outpatient GC_BAHC_Tod PRIV PRIV 243 [id number] [facility] 07:48:00 07:48:00 d_J [id number] Medica l 2021-10-14 2021-10-14 Estelle [facility]IV [facility] [id number] [facility] 00:00:00 00:00:00 RAÚL Schneider: Health - Med ical [address] [address] , Ph. 2021-10-14 2021-10-14 Outpatient Wyatt, PRIV PRIV [id number] [id number] 00:00:00 00:00:00 Estelle [id number] 2021-10-12 2021-10-12 Outpatient GC_BAHC_Tod PRIV PRIV 243 [id number] [facility] 04:19:00 04:19:00 d_J [id number] Medica l 2021-10-11 2021-10-11 Outpatient GC_BAHC_Tod PRIV PRIV 243 [id number] [facility] 10:06:00 10:06:00 d_J [id number] Medica l 2021-10-11 2021-10-11 Estelle [facility]IV [facility] [id number] [facility] 00:00:00 00:00:00 RAÚL Schneider: Health - Med ical [address] [address] , Ph. 2021-10-11 2021-10-11 Outpatient Wyatt PRIV PRIV [id number] [id number] 00:00:00 00:00:00 Estelle [id number] 2021-10-07 2021-10-07 Outpatient GC_BAHC_Tod PRIV PRIV 243 [id number] [facility] 04:03:00 04:03:00 d_J [id number] Medica l 2021-10-07 2021-10-07 Estelle [facility]IV [facility] [id number] [facility] 00:00:00 00:00:00 RAÚL Schneider: Health - Med ical [address] [address] , Ph. 2021-10-04 2021-10-04 Outpatient GC_BAHC_Tod PRIV PRIV 243 [id number] [facility] 06:03:00 06:03:00 d_J [id number] Medica l 2021-10-04 2021-10-04 Outpatient REMA Schneider PRIV [id number] [id number] 00:00:00 00:00:00 Estelle [id number] 4034-07-12 2021-10-04 Estelle [place] [facility] [id number] [facility] 00:00:00 00:00:00 RAÚL Schneider: Health - Med ical [address] [address] , Ph. 2021-09-29 2021-09-29 [facility] [id number] [facility] 00:00:00 00:00:00 ARUN 2021-09-27 2021-09-27 Outpatient GC_BAHC_Tod PRIV PRIV 243 [id number] [facility] 01:19:00 01:19:00 d_J [id number] Medica l 2021-08-19 2021-09-24 Inpatient UR PABLO [facility] Neuro ICU [id number] SLE 13:12:00 16:11:[facility] 2021-08[facility] 2021-09-24 [facility] [id number] 13:12:00 16:11:00 Encounter Vangie Dalal [facility] Kashmir TeofiloBrett Heather Renee 2021-09-19 2021-09-19 [facility] [id number] 23:59:00 23:59:00 [facility] 2021-09-19 2021-09-19 Outpatient SLE SLE [id number] [facility] 00:00:00 23:59:00 2021-09-16 2021-09-16 Outpatient ZANE NIMO [facility] SLE [id number] [facility] 00:00:00 00:00:00 [facility] 2021-09-15 2021-09-15 Outpatient [facility]ANE [facility] [id number] [facility] 00:00:00 00:00:00 [facility] 2021-09-12 2021-09-12 Anesthesia Kiarra Rangel [facility] [id number] 11:54:00 12:55:00 Event Chen Dsouza [facility] 2021-09-12 2021-09-12 Surgery Mónicaioana, [facility] [id number] 10:00:00 11:00:00 [facility] 2021-09-09 2021-09-09 Anesthesia Jacques Cruz [facility] [id number] 13:15:51 13:15:51 Event Bronson Michel Aimee [facility] 2021-08-20 2021-08-20 Orders [facility] [id number] 00:00:00 00:00:00 Only [facility] 2021-08-20 2021-08-20 Orders [facility] [id number] 00:00:00 00:00:00 Only [facility] 2021-08-11 2021-08-19 Hospital [facility] [id number] 01:30:00 12:30:00 [facility] 2021-08-11 2021-08-19 Inpatient ER [facility] [id number] [facility] 01:30:00 12:30:00 Med 2021-08-11 2021-08-11 Travel [facility] [id number] [facility] 00:[facility]00 00:00:00 [facility] 2021-08-11 2021-08-11 Travel [facility] [id number] [facility] 00:[facility]00 00:00:00 [facility] 2021-08-02 2021-08-02 Office ANNIE Magallanes 6410 [id number] [place] 10:00:00 12:05:[address] [id number] Health 9.2.7.2.686 [id number] 2021-06-30 2021-06-30 (TEL) [facility] [id number] [place] mmon 00:00:00 00:00:00 [facility] 2021-05-18 2021-05-18 Telephone ANNIE Magallanes [id number] [place] 00:00:00 00:00:[address] 350.1.13.58 Health [id number] [id number] 2021-01-25 2021-01-25 [id number] 00:00[facility]00 00:00:00 [facility] 2021-01-24 2021-01-24 [facility] [id number] 00:00:00 00:00:00 [facility] 2021-01-24 2021-01-24 Abstract Jessa [facility] [id number] 00:00:00 00:00:00 [facility] 2021-01-14 2021-01-14 Documentat Bebe [facility] [id number] 00:00:00 00:00:00 [facility] 2020-11-15 2020-11-15 Orders Paula [facility] [id number] 00:00:00 00:00:[address] [facility] 2020-02-25 2020-02-25 Outpatient [facility] [id number] [place] 00:00:00 00:00:00 SAJI [address] 2020-02-25 2020-02-25 Outpatient [facility] [id number] [place] 00:00:00 00:00:00 SAJI [address] 2020-01-30 2020-01-30 Maurice WYNN [id number] 00:00:00 00:00:00 Only Unassigned, TIMOTHY 350.1.13.10 [facility] 4.2.7.2.686 [id number] 2020-01-30 2020-01-30 Orders Doctor TIANNA [id number] [id number] [facility] 00:00:00 00:00:00 Only Unassigned, TIMOTHY 350.1.13.10 [place] [facility] 4.2.7.2.686 Red as [id number] [address] 2020-01-29 2020-01-29 [facility] 1.2.840.114 [id number] 00:00:00 00:00:00 Brown Fazal Holliday 350.1.13.10 Telephone 4.2.7.2.686 Professio [phone] nal [address] [place] [address] 2020-01-29 2020-01-29 Telephone [facility] 1.2.840.114 [id number] Univers 00:00:00 00:00:00 Brown Fazal gM 350.1.13.10 ity of [place]phone [place]2.7.2.686 [place] Professio [phone] Ne dic[address] 2020-01-22 2020-01-22 Office BRISEIDA Osullivan 1.2.840.114 [id number] 10:05:54 11:52:05 Visit Daiana Valerio AMBULATOR 350.1.13.21 Y 0.2.7.2.686 [id number] 600 2020-01-22 2020-01-22 Office BRISEIDA Osullivan 1.2.840.114 [id number] [facility] 10:05:54 11:52:05 Visit Daiana Teodoro AMBULATOR 350.1.13.21 College Y 0.2.7.2.686 [id number] [facility] 600 e 2020-01-02 2020-01-[address] [facility] [id number] Common 00:00:00 00:00:00 Spirit - [facility] 2019-12-31 2019-12-[address] [facility] [id number] Common 00:00:00 00:00:00 [facility] 2019-12-25 2019-12-25 Office BRISEIDA Osullivan 1.2.840.[id number] [facility] 09:47:44 11:32:45 Visit Daiana Valerio AMBULATOR 350.1.13.21 Y 0.2.7.2.686 [phone] 600 2019-12-25 2019-12-25 Office BRISEIDA Osullivan 1.2.840.[id number] [place] [address] 09:47:44 11:32:45 Visit Daiana Valerio AMBULATOR 350.1.13.21 College Y 0.2.7.2.686 of [phone] Medi leticia 600 e 2019-11-27 2019-11-27 Office BRISEIDA Osullivan 1.2.840.114 [id number] 08:35:10 09:57:10 Visit Daiana Valerio AMBULATOR 350.1.13.21 Y 0.2.7.2.686 [id number] 600 2019-11-27 2019-11-27 Office BRISEIDA Osullivan 1.2.840.[id number] [place] [address] 08:35:10 09:57:10 Visit Daiana Valerio AMBULATOR 350.1.13.21 College Y 0.2.7.2.686 of [id number] Medi leticia 600 e 2019-11-24 2019-11-24 [facility] [id number] Common 09:17:00 09:17:00 [facility] 2019-11-13 2019-11-13 Office BRISEIDA Osullivan 1.2.840.114 [id number] 15:52:21 16:41:09 Visit Daiana Valerio AMBULATOR 350.1.13.21 Y 0.2.7.2.686 [id number] 600 2019-11-13 2019-11-13 Office BRISEIDA Osullivan 1.2.840.114 [id number] 220 [facility] 15:52:21 16:41:09 Visit Daiana Valerio AMBULATOR 350.1.13.21 College Y 0.2.7.2.686 of [id number] Medi leticia 600 e 2019-11-12 2019-11-12 [facility] [id number] Common 09:30:00 09:30:00 [facility] 2019-11-04 2019-11-04 Outpatient [facility] [id number] [facility] 00:00:00 00:00:00 2019-11-04 2019-11-04 Outpatient [facility] [id number] [facility] 00:00:00 00:00:00 2019-10-07 2019-10-07 Outpatient [facility] [id number] [facility] 00:00:00 00:00:00 2019-10-02 2019-10-02 [facility] [id number] Common 16:22:00 16:22:[address] [facility] 2019-10-02 2019-10-02 [facility] [id number] Common 10:15:00 10:15:[address] [facility] 2019-10-02 2019-10-02 [facility] [id number] Common 10:00:00 10:00:[address] [facility] 2019-09-02 2019-09-02 Outpatient SLE [facility] [id number] SLEH 00:00:00 00:00:00 [id number] 2019-09-02 2019-09-02 Outpatient EL SLE [facility] [id number] [facility] 00:00:00 00:00:00 2019-07-01 2019-07-01 [facility] [id number] Common 11:45:00 11:45:[address] [facility] 2019-05-23 2019-05-23 Orders Doctor WYNN 1.2.840.114 [id number] Univers 00:00:00 00:00:00 Only Unassigned, TIMOTHY 350.1.13.10 ity of [place] [facility] 4.2.7.2.686 Red as [phone] [place] [address] [place] 2019-05-22 2019-05-22 MARGUERITE Campbell 1.2.840.114 [id number] Univers 00:00:00 00:00:00 Brown Holliday 350.1.13.10 ity of Telephone 4.2.7.2.686 [place] Profess[place] [phone] Ne dical nal 092 [facility] 2019-05-12 2019-05-12 Orders Doctor WYNN 1.2.840.114 [id number] Univers 00:00:00 00:00:00 Only Unassigned, TIMOTHY 350.1.13.10 [facility] 4.2.7.2.686 Red as [phone] [facility] 009 [address] 2019-04-10 2019-04-10 [facility] [id number] Common 11:54:00 11:54:[address] [facility] 2019-03-31 2019-03-31 [facility] [id number] Common 11:20:00 11:20:[address] [facility] 2019-03-27 2019-03-27 [facility] [id number] Common 10:30:00 10:30:[address] [facility] 2019-03-12 2019-03-12 [facility] [id number] Common 09:45:00 09:45:[address] [facility] Results Test Description Test Time Test Comments Results Result Comments Source MISCELLANEOUS LAB ORDER 2021-09-29 09:57:05 Test Item Value Reference Range Interpretation Comme nts SCAN RESULT (test code = 1363908) See scanned report See scanned reportPOC-Glucose [id number] 12:00:16 Test Item Value Reference Range Interpretation Comments POC-Glucose Meter (test 146 mg/dL 70-110 H : TE STED AT [facility] code = 1538) 6720 [facility], 770 30: Air Brush Operator/Techni daniel ID = [id number] for BANDAR BARR Lab Interpretation (test Abnormal code = 52117-1) [facility]SE [id number] 12:00:16 Test Item Value Reference Range Interpretation Comments POC-GLUCOSE METER 146 mg/dL 70-110 H : TESTED A T [facility] 6720 (BEAKER) (test code = [facility], 1538) 54882: Air Brush Operator/Techni daniel ID = [id number] for BANDAR SUAZO BASIC METABOLIC [id number] 07:05:24 Test Item Value Reference Range Interpretation Comments SODIUM (BEAKER) 135 meq/L 136-145 L (test code = 381) POTASSIUM (BEAKER) 3.8 meq/L 3.5-5.1 (test code = 379) CHLORIDE (BEAKER) 96 meq/L 98-107 L (test code = 382) CO2 (BEAKER) (test 27 meq/L 22-29 code = 355) BLOOD UREA NITROGEN 44 mg/dL 7-21 H (BEAKER) (test code = 354) CREATININE (BEAKER) 5.47 mg/dL 0.57-1.25 H (test code = 358) GLUCOSE RANDOM 95 mg/dL 70-105 (BEAKER) (test code = 652) CALCIUM (BEAKER) 9.3 mg/dL 8.4-10.2 (test code = 697) EGFR (BEAKER) (test 10 mL/min/1.73 ESTIMA SALLY GFR IS code = 1092) sq m NOT ACCURATE CREATININE CLEARANCE IN PREDICTING GLOMERULAR FILTRATION RATE . ESTIMATED GFR I S NOT APPLICABLE FOR DIALYSIS PATIEN TS. Air Brush Operator ID - BANDAR MPOCT-GLUCOSE [id number] 00:56:00 Test Item Value Reference Range Interpretation Comments POC-GLUCOSE METER 98 mg/dL 70-110 : TESTED A T [facility] 6720 (BEAKER) (test code = [facility], 1538) 39082: Air Brush Operator/Techni daniel ID = [id number] for YOCASTA N (V), PAMELAR POCT-GLUCOSE [id number] 17:09:29 Test Item Value Reference Range Interpretation Comments POC-GLUCOSE METER 110 mg/dL 70-110 : TESTED A T [facility] 6720 (BEAKER) (test code [facility], = 1538) 54185: Air Brush Operator/Techni daniel ID = [id number] for LAUREN Lester ANURADHA SARS-CoV2/RT-PCR (Asymptomatic ONLY)2021-09-23 15:25:18 Test Item Value Reference Range Interpretation Comments SARS-COV2/RT-PCR (test Positive Not Detected, AA code = 05795-4) Negative, See external report for linked test SARS-COV-2 PERFORMING [facility] (test code = 13111-2) CECELIA (test code = CECELIA) Results are for the detection of SARS-CoV-2 RNA. The SARS-CoV-2 RNA is generally detectable in nasopharyngeal swab specimens during the acute phase of infection. Positive results are indicative of active infection with SARS-CoV-2 and the patient is presumed to be contagious. Laboratory test results should always be considered in the clinical correlation with patient history and other epidemiological and diagnostic information that is necessary to determine patient infection status. Patient management decisions should follow current CDC guidelines. Positive results do not rule out bacterial infection or co-infection with other viruses. The agent detected may not be the definite cause of disease. The limit of detection for this assay is 800 copies/mL. This SARS CoV-2 test is a real-time RT-PCR test intended for the qualitative detection of nucleic acid from SARS-CoV-2 in a nasopharyngeal swab specimen collected from individuals suspected of COVID-19 by their healthcare provider. This test has not been Food and Drug Administration (FDA) cleared or approved. This is a modified version of an approved Emergency Use Authorization (EUA) and is in the process of review by the FDA. Once authorized by the FDA, the issued EUA will be effective until the declaration that circumstances exist justifying the authorization of the emergency use of in vitro diagnostic tests for detection and/or diagnosis of COVID-19 is terminated under Section 564(b)(2) of the Act or the EUA is revoked under Section 564(g) of the Act. Fact Sheet for Healthcare Providers:https://www.Spectraseis/sites/default /files/product/document s/Fact_Sheet_HC_Provide ly_Begr_NBWS-TxJ-1.pdf Fact Sheet for Healthcare Patients:https://www.Cloudant.GLSS/sites/default/ files/product/documents /Fact_Sheet_Patients_Ly qr_TAFU-OcA-2.pdf Performing Laboratory:[place] [address] [place] [address] Lab Interpretation Abnormal (test code = 34441-6) [facility])2021-09-23 15:25:18 Test Item Value Reference Range Interpretation Comments SARS-COV2/RT-PCR (test Positive Not Detected, Negative, AA code = 6975025) See external report for linked test SARS-COV-2 PERFORMING LAB [facility] (test code = 4245903) Results are for the detection of SARS-CoV-2 RNA. The SARS-CoV-2 RNA is generally detectable in nasopharyngeal swab specimens during the acute phase of infection. Positive results are indicative of active infection with SARS-CoV-2 and the patient is presumed to be contagious. Laboratory test results should always be considered in the clinical correlation with patient history and other epidemiological and diagnostic information that is necessary to determine patient infection status. Patient management decisions should follow current CDC guidelines. Positive results do not rule out bacterial infection or co-infection with other viruses. The agent detected may not be the definite cause of disease. The limit of detection for this assay is 800 copies/mL.This SARS CoV-2 test is a real-time RT-PCR test intended for the qualitative detection of nucleic acid from SARS-CoV-2 in a nasopharyngeal swab specimen collected from individuals suspected of COVID-19 by their healthcare provider.This test has not been Food and Drug Administration (FDA) cleared or approved. This is a modified version of an approvedEmergency Use Authorization (EUA) and is in the process of review by the FDA. Once authorized by theFDA, the issued EUA will be effective until the declaration that circumstances exist justifying the authorization of the emergency use of in vitro diagnostic tests for detection and/or diagnosis of COVID-19 is terminated under Section 564(b)(2) of the Act or the EUA is revoked under Section 564(g) of the Act.Fact Sheet for Healthcare Providers:https://www.HaloSource.GLSS/sites/default/files/product/documen ts/Nqda_Kjrhf_IU_Kkeqglqhj_Jfsn_LMXZ-WoQ-0.pdfFact Sheet for Healthcare Patients:https://www.HaloSource.Global Weather om/sites/default/files/product/documents/Asxk_Efwgq_Sphklhmc_Ecou_BEIC-UbG-7.pdf Performing Laboratory:[facility], [place] [address]ILDG-NYWRQEX [id number] 08:15:54 Test Item Value Reference Range Interpretation Comments POC-GLUCOSE METER 89 mg/dL 70-110 : TESTED A T [facility] 6720 (BEAKER) (test code = ANIL Brown [place], 1538) [address]: Air Brush Operator/Techni daniel ID = [id number] for LAUREN Lester POCT-GLUCOSE [id number] 06:25:58 Test Item Value Reference Range Interpretation Comments POC-GLUCOSE METER 88 mg/dL 70-110 : TESTED A T [facility] 6720 (BEAKER) (test code = ANIL R [facility], 1538) 35501: Air Brush Operator/Techni daniel ID = [id number] for ALLISON ARMAS BASIC METABOLIC [id number] 04:22:37 Test Item Value Reference Range Interpretation Comments SODIUM (BEAKER) 136 meq/L 136-145 (test code = 381) POTASSIUM (BEAKER) 3.9 meq/L 3.5-5.1 (test code = 379) CHLORIDE (BEAKER) 99 meq/L 98-107 (test code = 382) CO2 (BEAKER) (test 27 meq/L 22-29 code = 355) BLOOD UREA NITROGEN 31 mg/dL 7-21 H (BEAKER) (test code = 354) CREATININE (BEAKER) 4.32 mg/dL 0.57-1.25 H (test code = 358) GLUCOSE RANDOM 143 mg/dL 70-105 H (BEAKER) (test code = 652) CALCIUM (BEAKER) 9.1 mg/dL 8.4-10.2 (test code = 697) EGFR (BEAKER) (test 13 mL/min/1.73 ESTIMA SALLY GFR IS code = 1092) sq m NOT ACCURATE CREATININE CLEARANCE IN PREDICTING GLOMERULAR FILTRATION RATE . ESTIMATED GFR I S NOT APPLICABLE FOR DIALYSIS PATIEN TS. Air Brush Operator ID - THEE [id number] 04:16:36 Test Item Value Reference Range Interpretation Comments Magnesium (test code = 2.5 mg/dL 1.6-2.6 75392-5) CECELIA (test code = CECELIA) Air Brush Operator ID Chris KINGSTON G Lab Interpretation (test Normal code = 90766-5) [facility]Phosphorus2022-07-01 04:16:36 Test Item Value Reference Range Interpretation Comments Phosphorus (test code = 2.8 mg/dL 2.3-4.7 2777-1) CECELIA (test code = CECELIA) Air Brush Operator ID - THEE G Lab Interpretation (test Normal code = 01153-8) [facility] CampusC-Reactive [id number] 04:16:36 Test Item Value Reference Range Interpretation Comments CRP (test code = 676) 11.91 mg/dL 0.00-0.50 H CECELIA (test code = CECELIA) Air Brush Operator ID - THEE G Lab Interpretation (test Abnormal code = 22949-0) [facility] CampusMAGNESIUM2022-07-01 04:16:36 Test Item Value Reference Range Interpretation Comments MAGNESIUM (BEAKER) (test code = 2.5 mg/dL 1.6-2.6 627) Air Brush Operator ID - THEE [id number] 04:16:36 Test Item Value Reference Range Interpretation Comments PHOSPHORUS (BEAKER) (test code = 2.8 mg/dL 2.3-4.7 604) Air Brush Operator ID - THEE GC-REACTIVE [id number] 04:16:36 Test Item Value Reference Range Interpretation Comments C-REACTIVE PROTEIN (BEAKER) (test 11.91 mg/dL 0.00-0.50 H code = 676) Air Brush Operator ID - THEE GCBC (Hemogram only)2021-09-23 03:52:42 Test Item Value Reference Range Interpretation Comments WBC (test code = 6690-2) 10.1 See_Comment [A utomated message] The system [employer] generated this result transmitted ref erence range: 3.5 - 10 .5 K/L. The refe rence range was not u sed to interpret this result as normal/abnor mal. RBC (test code = 789-8) 2.66 See_Comment L [Au tomated message] The system [employer] generated this result transmitted ref erence range: 3.93 - 5 .22 M/L. The refe rence range was not u sed to interpret this result as normal/abnor mal. MCHC (test code = 786-4) 31.5 See_Comment L [A utomated message] The system [employer] generated this result transmitted ref erence range: 32.2 - 3 5.5 GM/DL. The refe rence range was not u sed to interpret this result as normal/abnor mal. Hematocrit (test code = 26.0 % 34.1-44.9 L 4544-3) MCV (test code = 787-2) 97.7 fL 79.4-94.8 H MCH (test code = 785-6) 30.8 pg 25.6-32.2 RDW (test code = 788-0) 19.6 % 11.7-14.4 H Platelets (test code = 439 See_Comment [Aut omated message] 777-3) The system [employer] generated this result transmitted ref erence range: 150 - 45 0 K/CU MM. The referen ce range was not u sed to interpret this result as normal/abnor mal. MPV (test code = 9.4 fL 9.4-12.3 01382-1) nRBC (test code = 413) 0 See_Comment [Aut omated message] The system [employer] generated this result transmitted ref erence range: 0 - 0 /1 00 WBC. The refere nce range was not u sed to interpret this result as normal/abnor mal. Lab Interpretation (test Abnormal code = 65163-4) [facility] (HEMOGRAM ONLY)2021-09-23 03:52:42 Test Item Value Reference Range Interpretation Comments WHITE BLOOD CELL COUNT (BEAKER) 10.1 K/ L 3.5-10.5 (test code = 775) RED BLOOD CELL COUNT (BEAKER) 2.66 M/ L 3.93-5.22 L (test code = 761) HEMOGLOBIN (BEAKER) (test code = 8.2 GM/DL 11.2-15.7 L 410) HEMATOCRIT (BEAKER) (test code = 26.0 % 34.1-44.9 L 411) MEAN CORPUSCULAR VOLUME (BEAKER) 97.7 fL 79.4-94.8 H (test code = 753) MEAN CORPUSCULAR HEMOGLOBIN 30.8 pg 25.6-32.2 (BEAKER) (test code = 751) MEAN CORPUSCULAR HEMOGLOBIN CONC 31.5 GM/DL 32.2-35.5 L (BEAKER) (test code = 752) RED CELL DISTRIBUTION WIDTH 19.6 % 11.7-14.4 H (BEAKER) (test code = 412) PLATELET COUNT (BEAKER) (test 439 K/CU MM 150-450 code = 756) MEAN PLATELET VOLUME (BEAKER) 9.4 fL 9.4-12.3 (test code = 754) NUCLEATED RED BLOOD CELLS 0 /100 WBC 0-0 (BEAKER) (test code = 413) POCT-GLUCOSE [id number] 23:51:03 Test Item Value Reference Range Interpretation Comments POC-GLUCOSE METER 158 mg/dL 70-110 H : TESTED A T [facility] 6720 (BEAKER) (test code = ANIL [place], 1538) [address]: Air Brush Operator/Techni daniel ID = [id number] for ALLISON HORTA CT, BRAIN, WITHOUT [id number] 17:58:00Unlisted Reason for Exam - Click Yes and Enter Reason Below->No [facility] MAKI STRATTON : 1965 Sex: FFINAL REPORT CT, BRAIN, WITHOUT CONTRAST CLINICAL INDICATION: Altered mentalstatus COMPARISON: 08/18/2021 TECHNIQUE: Noncontrast axial CT imaging of the brain and skull. DOSE REDUCTION: Dose modulation, iterative reconstruction, and/or weight-based adjustment of the mA/kV was utilized to reduce the radiation dose to as low as reasonably achievable. FINDINGS:No intracranial hemorrhage, midline shift or mass effect. Volume loss of the lentiform nuclei, unchanged from prior exam. Scattered foci of hypoattenuation are present throughout the periventricular and subcortical white matter, and, although nonspecific by imaging, statistically represent mild chronic microvascular ischemic changes in this age group. No hydrocephalus. Orbits are within normal limits. No obstructive paranasal sinus disease. IMPRESSION: No acute intracranial findings If there is persistent clinical concern for intracranial pathology, MR examination is recommended for further characterization. Signed: Ruth Benítez Verified Date/Time: 09/22/2021 17:58:57 [id number] 15:11:51 Test Item Value Reference Range Interpretation Comments THYROID STIMULATING HORMONE 4.461 uIU/mL 0.350-4.940 (BEAKER) (test code = 772) Air Brush Operator ID - BSVITAMIN [id number] 15:11:51 Test Item Value Reference Range Interpretation Comments VITAMIN B12 (BEAKER) (test code = 647 pg/mL 213-816 774) Air Brush Operator ID - BSPOCT-GLUCOSE [id number] 11:59:22 Test Item Value Reference Range Interpretation Comments POC-GLUCOSE METER 142 mg/dL 70-110 H : TESTED A T [facility] 6720 (BEAKER) (test code [facility], = 1538) [address]49: Air Brush Operator/Techni daniel ID = [id number] for VIDA Crockett ChrisDarinTACOJOSE ANURADHA POCT-GLUCOSE [id number] 23:31:55 Test Item Value Reference Range Interpretation Comments POC-GLUCOSE METER 130 mg/dL 70-110 H : TESTED A T [facility] 6720 (BEAKER) (test code = [facility], 1538) 748[address]: Air Brush Operator/Techni daniel ID = [id number] for Nichole pido Vickie VALPROIC ACID LEVEL, [id number] 19:13:57 Test Item Value Reference Range Interpretation Comments VALPROIC ACID TOTAL (BEAKER) (test 53 ug/mL 50-100 code = 924) Therapeutic range for some clinical conditions may be >100 ug/mLOperator ID - BSBLOOD [id number] 16:01:08 Test Item Value Reference Range Interpretation Comments CULTURE (BEAKER) (test No growth in 5 days code = 1095) BLOOD [id number] 16:01:07 Test Item Value Reference Range Interpretation Comments CULTURE (BEAKER) (test No growth in 5 days code = 1095) POCT-GLUCOSE [id number] 11:43:19 Test Item Value Reference Range Interpretation Comments POC-GLUCOSE METER 105 mg/dL 70-110 : TESTED A T [facility] 6720 (BEAKER) (test code = [facility], 1538) 81896: Air Brush Operator/Techni daniel ID = [id number] for LEENA ROTHMAN POCT-GLUCOSE [id number] 06:58:18 Test Item Value Reference Range Interpretation Comments POC-GLUCOSE METER 138 mg/dL 70-110 H : TESTED A T [facility] 6720 (BEAKER) (test code = [facility], 1538) 22247: Air Brush Operator/Techni daniel ID = [id number] for Amparo Warren BASIC METABOLIC [id number] 05:34:52 Test Item Value Reference Range Interpretation Comments SODIUM (BEAKER) 137 meq/L 136-145 (test code = 381) POTASSIUM (BEAKER) 3.4 meq/L 3.5-5.1 L (test code = 379) CHLORIDE (BEAKER) 99 meq/L 98-107 (test code = 382) CO2 (BEAKER) (test 27 meq/L -29 code = 355) BLOOD UREA NITROGEN 27 mg/dL 7-21 H (BEAKER) (test code = 354) CREATININE (BEAKER) 4.18 mg/dL 0.57-1.25 H (test code = 358) GLUCOSE RANDOM 101 mg/dL 70-105 (BEAKER) (test code = 652) CALCIUM (BEAKER) 8.6 mg/dL 8.4-10.2 (test code = 697) EGFR (BEAKER) (test 13 mL/min/1.73 ESTIMA SALLY GFR IS code = 1092) sq m NOT ACCURATE CREATININE CLEARANCE IN PREDICTING GLOMERULAR FILTRATION RATE . ESTIMATED GFR I S NOT APPLICABLE FOR DIALYSIS PATIEN TS. Air Brush Operator ID - DANA LC-REACTIVE [id number] 05:34:35 Test Item Value Reference Range Interpretation Comments C-REACTIVE PROTEIN (BEAKER) (test 17.60 mg/dL 0.00-0.50 H code = 676) Air Brush Operator ID - DANA [id number] 05:34:34 Test Item Value Reference Range Interpretation Comments MAGNESIUM (BEAKER) (test code = 2.4 mg/dL 1.6-2.6 627) Air Brush Operator ID - DANA [id number] 05:34:34 Test Item Value Reference Range Interpretation Comments PHOSPHORUS (BEAKER) (test code = 3.2 mg/dL 2.3-4.7 604) Air Brush Operator ID - DANA LPOCT-GLUCOSE [id number] 23:43:01 Test Item Value Reference Range Interpretation Comments POC-GLUCOSE METER 113 mg/dL 70-110 H : TESTED A T [facility] 6720 (BEAKER) (test code = [facility], 1538) 92125: Air Brush Operator/Techni daniel ID = [id number] for Amparo Warren POCT-GLUCOSE [id number] 18:10:57 Test Item Value Reference Range Interpretation Comments POC-GLUCOSE METER 109 mg/dL 70-110 : TESTED A T [facility] 6720 (BEAKER) (test code = [facility], 153) 62006: Air Brush Operator/Techni daniel ID = [id number] for WILLIAM MERINOO, BANDAR BLOOD [id number] 17:00:52 Test Item Value Reference Range Interpretation Comments CULTURE (BEAKER) (test No growth in 5 days code = 1095) POCT-GLUCOSE [id number] 12:23:54 Test Item Value Reference Range Interpretation Comments POC-GLUCOSE METER 102 mg/dL 70-110 : TESTED A T [facility] 6720 (BEAKER) (test code = [facility], 153) 60533: Air Brush Operator/Techni daniel ID = [id number] for WILLIAM MERINOO, BANDAR POCT-GLUCOSE [id number] 06:03:14 Test Item Value Reference Range Interpretation Comments POC-GLUCOSE METER 117 mg/dL 70-110 H : TESTED A T [facility] 6720 (BEAKER) (test code = [facility], 153) 00384: Air Brush Operator/Techni daniel ID = [id number] for ALLISON HORTA POCT-GLUCOSE [id number] 23:34:08 Test Item Value Reference Range Interpretation Comments POC-GLUCOSE METER 130 mg/dL 70-110 H : TESTED A T [facility] 6720 (BEAKER) (test code = [facility], 1538) 47047: Air Brush Operator/Techni daniel ID = [id number] for ALLISON HORTA POCT-GLUCOSE [id number] 17:25:33 Test Item Value Reference Range Interpretation Comments POC-GLUCOSE METER 118 mg/dL 70-110 H : TESTED A T [facility] 6720 (BEAKER) (test code = [facility], 1538) 26322: Air Brush Operator/Techni daniel ID = [id number] for ST VINCE, NADA POCT-GLUCOSE [id number] 11:37:16 Test Item Value Reference Range Interpretation Comments POC-GLUCOSE METER 110 mg/dL 70-110 : TESTED A T [facility] 6720 (BEAKER) (test code = [facility], 1538) 779[address]: Air Brush Operator/Techni daniel ID = [id number] for ST BRIDGETIC, NADA POCT-GLUCOSE [id number] 06:41:12 Test Item Value Reference Range Interpretation Comments POC-GLUCOSE METER 110 mg/dL 70-110 : TESTED A T [facility] 6720 (BEAKER) (test code = [facility], 1538) 91388: Air Brush Operator/Techni daniel ID = [id number] for ANGELIKA STALEY BASIC METABOLIC [id number] 05:33:28 Test Item Value Reference Range Interpretation Comments SODIUM (BEAKER) 138 meq/L 136-145 (test code = 381) POTASSIUM (BEAKER) 3.7 meq/L 3.5-5.1 (test code = 379) CHLORIDE (BEAKER) 101 meq/L 98-107 (test code = 382) CO2 (BEAKER) (test 25 meq/L 22-29 code = 355) BLOOD UREA NITROGEN 27 mg/dL 7-21 H (BEAKER) (test code = 354) CREATININE (BEAKER) 4.07 mg/dL 0.57-1.25 H (test code = 358) GLUCOSE RANDOM 99 mg/dL 70-105 (BEAKER) (test code = 652) CALCIUM (BEAKER) 8.6 mg/dL 8.4-10.2 (test code = 697) EGFR (BEAKER) (test 14 mL/min/1.73 ESTIMA SALLY GFR IS code = 1092) sq m NOT ACCURATE CREATININE CLEARANCE IN PREDICTING GLOMERULAR FILTRATION RATE . ESTIMATED GFR I S NOT APPLICABLE FOR DIALYSIS PATIEN TS. Air Brush Operator ID - TEHE [id number] 05:25:46 Test Item Value Reference Range Interpretation Comments MAGNESIUM (BEAKER) (test code = 2.3 mg/dL 1.6-2.6 627) Air Brush Operator ID - THEE GC-REACTIVE [id number] 05:25:46 Test Item Value Reference Range Interpretation Comments C-REACTIVE PROTEIN (BEAKER) (test 17.48 mg/dL 0.00-0.50 H code = 676) Air Brush Operator ID - THEE GPOCT-GLUCOSE [id number] 00:56:08 Test Item Value Reference Range Interpretation Comments POC-GLUCOSE METER 107 mg/dL 70-110 : TESTED A T [facility] 6720 (BEAKER) (test code = [facility], 1538) 39798: Air Brush Operator/Techni daniel ID = [id number] for ANGELIKA STALEY POCT-GLUCOSE [id number] 18:06:33 Test Item Value Reference Range Interpretation Comments POC-GLUCOSE METER 110 mg/dL 70-110 : TESTED A T [facility] 6720 (BEAKER) (test code = [facility], 1538) 34166: Air Brush Operator/Techni daniel ID = [id number] for DONNIE LANGLEY POCT-GLUCOSE [id number] 12:14:38 Test Item Value Reference Range Interpretation Comments POC-GLUCOSE METER 116 mg/dL 70-110 H : TESTED A T [facility] 6720 (BEAKER) (test code = [facility], 1538) 77201: Air Brush Operator/Techni daniel ID = [id number] for DONNIE LANGLEY BASIC METABOLIC [id number] 05:21:10 Test Item Value Reference Range Interpretation Comments SODIUM (BEAKER) 139 meq/L 136-145 (test code = 381) POTASSIUM (BEAKER) 3.4 meq/L 3.5-5.1 L (test code = 379) CHLORIDE (BEAKER) 102 meq/L 98-107 (test code = 382) CO2 (BEAKER) (test 28 meq/L 22-29 code = 355) BLOOD UREA NITROGEN 14 mg/dL 7-21 (BEAKER) (test code = 354) CREATININE (BEAKER) 2.88 mg/dL 0.57-1.25 H (test code = 358) GLUCOSE RANDOM 121 mg/dL 70-105 H (BEAKER) (test code = 652) CALCIUM (BEAKER) 8.6 mg/dL 8.4-10.2 (test code = 697) EGFR (BEAKER) (test 20 mL/min/1.73 ESTIMA SALLY GFR IS code = 1092) sq m NOT ACCURATE CREATININE CLEARANCE IN PREDICTING GLOMERULAR FILTRATION RATE . ESTIMATED GFR I S NOT APPLICABLE FOR DIALYSIS PATIEN TS. Air Brush Operator ID - THEE [id number] 05:13:01 Test Item Value Reference Range Interpretation Comments PHOSPHORUS (BEAKER) (test code = 2.0 mg/dL 2.3-4.7 L 604) Air Brush Operator ID - THEE [id number] 05:13:00 Test Item Value Reference Range Interpretation Comments MAGNESIUM (BEAKER) (test code = 2.1 mg/dL 1.6-2.6 627) Air Brush Operator ID - THEE GCBC (HEMOGRAM ONLY)2021-09-18 05:08:01 Test Item Value Reference Range Interpretation Comments WHITE BLOOD CELL COUNT (BEAKER) 7.7 K/ L 3.5-10.5 (test code = 775) RED BLOOD CELL COUNT (BEAKER) 2.88 M/ L 3.93-5.22 L (test code = 761) HEMOGLOBIN (BEAKER) (test code = 8.9 GM/DL 11.2-15.7 L 410) HEMATOCRIT (BEAKER) (test code = 28.8 % 34.1-44.9 L 411) MEAN CORPUSCULAR VOLUME (BEAKER) 100.0 fL 79.4-94.8 H (test code = 753) MEAN CORPUSCULAR HEMOGLOBIN 30.9 pg 25.6-32.2 (BEAKER) (test code = 751) MEAN CORPUSCULAR HEMOGLOBIN CONC 30.9 GM/DL 32.2-35.5 L (BEAKER) (test code = 752) RED CELL DISTRIBUTION WIDTH 20.9 % 11.7-14.4 H (BEAKER) (test code = 412) PLATELET COUNT (BEAKER) (test 264 K/CU MM 150-450 code = 756) MEAN PLATELET VOLUME (BEAKER) 9.4 fL 9.4-12.3 (test code = 754) NUCLEATED RED BLOOD CELLS 0 /100 WBC 0-0 (BEAKER) (test code = 413) POCT-GLUCOSE [id number] 17:42:12 Test Item Value Reference Range Interpretation Comments POC-GLUCOSE METER 114 mg/dL 70-110 H : TESTED A T [facility] 6720 (BEAKER) (test code = [facility] [place], 1538) [address]: Air Brush Operator/Techni daniel ID = [id number] for DONNIE LANGLEY BASIC METABOLIC [id number] 14:00:34 Test Item Value Reference Range Interpretation Comments SODIUM (BEAKER) 138 meq/L 136-145 (test code = 381) POTASSIUM (BEAKER) 3.4 meq/L 3.5-5.1 L (test code = 379) CHLORIDE (BEAKER) 100 meq/L 98-107 (test code = 382) CO2 (BEAKER) (test 26 meq/L 22-29 code = 355) BLOOD UREA NITROGEN 16 mg/dL 7-21 (BEAKER) (test code = 354) CREATININE (BEAKER) 3.39 mg/dL 0.57-1.25 H (test code = 358) GLUCOSE RANDOM 91 mg/dL 70-105 (BEAKER) (test code = 652) CALCIUM (BEAKER) 8.2 mg/dL 8.4-10.2 L (test code = 697) EGFR (BEAKER) (test 17 mL/min/1.73 ESTIMA SALLY GFR IS code = 1092) sq m NOT ACCURATE CREATININE CLEARANCE IN PREDICTING GLOMERULAR FILTRATION RATE . ESTIMATED GFR I S NOT APPLICABLE FOR DIALYSIS PATIEN TS. Air Brush Operator ID - BANDAR [id number] 13:54:23 Test Item Value Reference Range Interpretation Comments MAGNESIUM (BEAKER) (test code = 2.2 mg/dL 1.6-2.6 627) Air Brush Operator ID - BANDAR MCBC (HEMOGRAM ONLY)2021-09-17 13:41:41 Test Item Value Reference Range Interpretation Comments WHITE BLOOD CELL COUNT (BEAKER) 6.9 K/ L 3.5-10.5 (test code = 775) RED BLOOD CELL COUNT (BEAKER) 2.92 M/ L 3.93-5.22 L (test code = 761) HEMOGLOBIN (BEAKER) (test code = 8.8 GM/DL 11.2-15.7 L 410) HEMATOCRIT (BEAKER) (test code = 29.8 % 34.1-44.9 L 411) MEAN CORPUSCULAR VOLUME (BEAKER) 102.1 fL 79.4-94.8 H (test code = 753) MEAN CORPUSCULAR HEMOGLOBIN 30.1 pg 25.6-32.2 (BEAKER) (test code = 751) MEAN CORPUSCULAR HEMOGLOBIN CONC 29.5 GM/DL 32.2-35.5 L (BEAKER) (test code = 752) RED CELL DISTRIBUTION WIDTH 21.2 % 11.7-14.4 H (BEAKER) (test code = 412) PLATELET COUNT (BEAKER) (test 260 K/CU MM 150-450 code = 756) MEAN PLATELET VOLUME (BEAKER) 9.4 fL 9.4-12.3 (test code = 754) NUCLEATED RED BLOOD CELLS 0 /100 WBC 0-0 (BEAKER) (test code = 413) POCT-GLUCOSE [id number] 12:17:44 Test Item Value Reference Range Interpretation Comments POC-GLUCOSE METER 106 mg/dL 70-110 : TESTED A T [facility] 6720 (BEAKER) (test code = [facility], 1537) 98553: Air Brush Operator/Techni daniel ID = [id number] for DONNIE LANGLEY POCT-GLUCOSE [id number] 22:49:23 Test Item Value Reference Range Interpretation Comments POC-GLUCOSE METER 132 mg/dL 70-110 H : TESTED A T [facility] 6720 (BEAKER) (test code = [facility], 153) 87920: Air Brush Operator/Techni daniel ID = [id number] for DORITA OLIVEIRAMADANTIFFANYID POCT-GLUCOSE [id number] 17:34:14 Test Item Value Reference Range Interpretation Comments POC-GLUCOSE METER 122 mg/dL 70-110 H : TESTED A T [facility] 6720 (BEAKER) (test code = [facility], 153) 41962: Air Brush Operator/Techni daniel ID = [id number] for CATHY MONTOYA SARS-COV2/RT-PCR ([facility])2021-09-16 13:48:06 Test Item Value Reference Range Interpretation Comments SARS-COV2/RT-PCR (test Positive Not Detected, Negative, AA code = 6267773) See external report for linked test SARS-COV-2 PERFORMING LAB [facility] AND[facility]A (test code = 7398987) Results are for the detection of SARS-CoV-2 RNA. The SARS-CoV-2 RNA is generally detectable in nasopharyngeal swab specimens during the acute phase of infection. Positive results are indicative of active infection with SARS-CoV-2 and the patient is presumed to be contagious. Laboratory test results should always be considered in the clinical correlation with patient history and other epidemiological and diagnostic information that is necessary to determine patient infection status. Patient management decisions should follow current CDC guidelines. Positive results do not rule out bacterial infection or co-infection with other viruses. The agent detected may not be the definite cause of disease. The limit of detection for this assay is 800 copies/mL.This SARS CoV-2 test is a real-time RT-PCR test intended for the qualitative detection of nucleic acid from SARS-CoV-2 in a nasopharyngeal swab specimen collected from individuals suspected of COVID-19 by their healthcare provider.This test has not been Food and Drug Administration (FDA) cleared or approved. This is a modified version of an approvedEmergency Use Authorization (EUA) and is in the process of review by the FDA. Once authorized by theFDA, the issued EUA will be effective until the declaration that circumstances exist justifying the authorization of the emergency use of in vitro diagnostic tests for detection and/or diagnosis of COVID-19 is terminated under Section 564(b)(2) of the Act or the EUA is revoked under Section 564(g) of the Act.Fact Sheet for Healthcare Providers:https://www.[employer].com/sites/default/files/product/documen ts/Rtav_Udabn_DD_Jsyikbejb_Vrrt_BIQC-VfU-8.pdfFact Sheet for Healthcare Patients:https://www.[employer].c om/sites/default/files/product/documents/Argb_Sarqy_Wdlyxhas_Ljmc_MVUJ-ZyF-8.pdf Performing Laboratory:[place] [address] [address], [place] [address]SGSB-TTNTGMD [id number] 11:26:15 Test Item Value Reference Range Interpretation Comments POC-GLUCOSE METER 108 mg/dL 70-110 : TESTED A T [facility] 6720 (BEAKER) (test code = [facility], 1538) 67147: Air Brush Operator/Techni daniel ID = [id number] for CATHY MONTOYA POCT-GLUCOSE [id number] 06:27:24 Test Item Value Reference Range Interpretation Comments POC-GLUCOSE METER 97 mg/dL 70-110 : TESTED A T [facility] 6720 (BEAKER) (test code = [facility], 1538) 33117: Air Brush Operator/Techni daniel ID = [id number] for Fidelia Sullivan BASIC METABOLIC [id number] 03:59:42 Test Item Value Reference Range Interpretation Comments SODIUM (BEAKER) 137 meq/L 136-145 (test code = 381) POTASSIUM (BEAKER) 3.5 meq/L 3.5-5.1 (test code = 379) CHLORIDE (BEAKER) 99 meq/L 98-107 (test code = 382) CO2 (BEAKER) (test 26 meq/L 22-29 code = 355) BLOOD UREA NITROGEN 21 mg/dL 7-21 (BEAKER) (test code = 354) CREATININE (BEAKER) 4.81 mg/dL 0.57-1.25 H (test code = 358) GLUCOSE RANDOM 102 mg/dL 70-105 (BEAKER) (test code = 652) CALCIUM (BEAKER) 8.2 mg/dL 8.4-10.2 L (test code = 697) EGFR (BEAKER) (test 11 mL/min/1.73 ESTIMA SALLY GFR IS code = 1092) sq m NOT ACCURATE CREATININE CLEARANCE IN PREDICTING GLOMERULAR FILTRATION RATE . ESTIMATED GFR I S NOT APPLICABLE FOR DIALYSIS PATIEN TS. Air Brush Operator ID - [id number] 03:56:56 Test Item Value Reference Range Interpretation Comments MAGNESIUM (BEAKER) (test code = 2.2 mg/dL 1.6-2.6 627) Air Brush Operator ID - [id number] 03:56:56 Test Item Value Reference Range Interpretation Comments PHOSPHORUS (BEAKER) (test code = 3.9 mg/dL 2.3-4.7 604) Air Brush Operator ID - ADMINVANCOMYCIN LEVEL, [id number] 03:52:49 Test Item Value Reference Range Interpretation Comments VANCOMYCIN RANDOM (BEAKER) (test 23.3 ug/mL code = 523) Reference Range: No NormalsOperator ID - ADMINCBC (HEMOGRAM ONLY)2021-09-16 03:38:33 Test Item Value Reference Range Interpretation Comments WHITE BLOOD CELL COUNT (BEAKER) 5.4 K/ L 3.5-10.5 (test code = 775) RED BLOOD CELL COUNT (BEAKER) 2.70 M/ L 3.93-5.22 L (test code = 761) HEMOGLOBIN (BEAKER) (test code = 8.2 GM/DL 11.2-15.7 L 410) HEMATOCRIT (BEAKER) (test code = 27.3 % 34.1-44.9 L 411) MEAN CORPUSCULAR VOLUME (BEAKER) 101.1 fL 79.4-94.8 H (test code = 753) MEAN CORPUSCULAR HEMOGLOBIN 30.4 pg 25.6-32.2 (BEAKER) (test code = 751) MEAN CORPUSCULAR HEMOGLOBIN CONC 30.0 GM/DL 32.2-35.5 L (BEAKER) (test code = 752) RED CELL DISTRIBUTION WIDTH 21.4 % 11.7-14.4 H (BEAKER) (test code = 412) PLATELET COUNT (BEAKER) (test 236 K/CU MM 150-450 code = 756) MEAN PLATELET VOLUME (BEAKER) 9.1 fL 9.4-12.3 L (test code = 754) NUCLEATED RED BLOOD CELLS 0 /100 WBC 0-0 (BEAKER) (test code = 413) POCT-GLUCOSE [id number] 23:18:54 Test Item Value Reference Range Interpretation Comments POC-GLUCOSE METER 104 mg/dL 70-110 : Notified RN/MD: (BEAKER) (test code = TESTED AT [place] [address] 6838) [facility], [address]: Air Brush Operator/Techni daniel ID = [id number] for BAIRON CHRISTENSEN POCT-GLUCOSE [id number] 17:14:40 Test Item Value Reference Range Interpretation Comments POC-GLUCOSE METER 77 mg/dL 70-110 : TESTED A T [facility] 6720 (BEAKER) (test code = [facility] [place], 1538) [address]: Air Brush Operator/Techni daniel ID = [id number] for Kristian Hwang POCT-GLUCOSE [id number] 11:36:13 Test Item Value Reference Range Interpretation Comments POC-GLUCOSE METER 99 mg/dL 70-110 : TESTED A T [facility] 6720 (BEAKER) (test code = [facility], 1538) 17[address]: Air Brush Operator/Techni daniel ID = [id number] for Kristian Hwang [id number] 09:38:21 Test Item Value Reference Range Interpretation Comments PROCALCITONIN (BEAKER) (test code 1.28 ng/mL <0.05 H = 3036) SEPSIS RISK (ng/mL)Low: 0.05-0.50Intermediate: 0.51-2.00High: >=2.01LACTIC ACID, [id number] 09:17:37 Test Item Value Reference Range Interpretation Comments LACTATE BLOOD VENOUS (2) (BEAKER) 1.14 mmol/L 0.50-2.20 (test code = 2872) Air Brush Operator ID - PIAYA LCBC W/PLT COUNT & AUTO [id number] 09:09:24 Test Item Value Reference Range Interpretation Comments WHITE BLOOD CELL COUNT (BEAKER) 5.9 K/ L 3.5-10.5 (test code = 775) RED BLOOD CELL COUNT (BEAKER) 2.72 M/ L 3.93-5.22 L (test code = 761) HEMOGLOBIN (BEAKER) (test code = 8.5 GM/DL 11.2-15.7 L 410) HEMATOCRIT (BEAKER) (test code = 27.6 % 34.1-44.9 L 411) MEAN CORPUSCULAR VOLUME (BEAKER) 101.5 fL 79.4-94.8 H (test code = 753) MEAN CORPUSCULAR HEMOGLOBIN 31.3 pg 25.6-32.2 (BEAKER) (test code = 751) MEAN CORPUSCULAR HEMOGLOBIN CONC 30.8 GM/DL 32.2-35.5 L (BEAKER) (test code = 752) RED CELL DISTRIBUTION WIDTH 21.7 % 11.7-14.4 H (BEAKER) (test code = 412) PLATELET COUNT (BEAKER) (test 243 K/CU MM 150-450 code = 756) MEAN PLATELET VOLUME (BEAKER) 9.6 fL 9.4-12.3 (test code = 754) NUCLEATED RED BLOOD CELLS 0 /100 WBC 0-0 (BEAKER) (test code = 413) NEUTROPHILS RELATIVE PERCENT 50 % (BEAKER) (test code = 429) LYMPHOCYTES RELATIVE PERCENT 25 % (BEAKER) (test code = 430) MONOCYTES RELATIVE PERCENT 22 % (BEAKER) (test code = 431) EOSINOPHILS RELATIVE PERCENT 2 % (BEAKER) (test code = 432) BASOPHILS RELATIVE PERCENT 1 % (BEAKER) (test code = 437) NEUTROPHILS ABSOLUTE COUNT 2.92 K/ L 1.56-6.13 (BEAKER) (test code = 670) LYMPHOCYTES ABSOLUTE COUNT 1.45 K/ L 1.18-3.74 (BEAKER) (test code = 414) MONOCYTES ABSOLUTE COUNT (BEAKER) 1.27 K/ L 0.24-0.36 H (test code = 415) EOSINOPHILS ABSOLUTE COUNT 0.09 K/ L 0.04-0.36 (BEAKER) (test code = 416) BASOPHILS ABSOLUTE COUNT (BEAKER) 0.03 K/ L 0.01-0.08 (test code = 417) IMMATURE GRANULOCYTES-RELATIVE 2 % 0-1 H PERCENT (BEAKER) (test code = 2801) POCT-GLUCOSE [id number] 06:12:37 Test Item Value Reference Range Interpretation Comments POC-GLUCOSE METER 84 mg/dL 70-110 : Notified RN/MD: TESTED (BEAKER) (test code = AT [place] [address]) [facility], [facility] 30: Air Brush Operator/Techni daniel ID = [id number] for LATH BRIDGE, MABEL POCT-GLUCOSE [id number] 23:36:01 Test Item Value Reference Range Interpretation Comments POC-GLUCOSE METER 97 mg/dL 70-110 : Notified RN/MD: TESTED (BEAKER) (test code = AT [place] [address]398) [facility], [facility] 30: Air Brush Operator/Techni daniel ID = [id number] for LATH BRIDGE, MABEL POCT-GLUCOSE [id number] 18:09:46 Test Item Value Reference Range Interpretation Comments POC-GLUCOSE METER 94 mg/dL 70-110 : TESTED A T [facility] 6720 (BEAKER) (test code = [place], 1538) [address]: Air Brush Operator/Techni daniel ID = [id number] for Crystal Varghese CBC (HEMOGRAM ONLY)2021-09-14 17:15:31 Test Item Value Reference Range Interpretation Comments WHITE BLOOD CELL COUNT (BEAKER) 5.8 K/ L 3.5-10.5 (test code = 775) RED BLOOD CELL COUNT (BEAKER) 2.96 M/ L 3.93-5.22 L (test code = 761) HEMOGLOBIN (BEAKER) (test code = 9.1 GM/DL 11.2-15.7 L 410) HEMATOCRIT (BEAKER) (test code = 29.7 % 34.1-44.9 L 411) MEAN CORPUSCULAR VOLUME (BEAKER) 100.3 fL 79.4-94.8 H (test code = 753) MEAN CORPUSCULAR HEMOGLOBIN 30.7 pg 25.6-32.2 (BEAKER) (test code = 751) MEAN CORPUSCULAR HEMOGLOBIN CONC 30.6 GM/DL 32.2-35.5 L (BEAKER) (test code = 752) RED CELL DISTRIBUTION WIDTH 21.8 % 11.7-14.4 H (BEAKER) (test code = 412) PLATELET COUNT (BEAKER) (test 236 K/CU MM 150-450 code = 756) MEAN PLATELET VOLUME (BEAKER) 9.5 fL 9.4-12.3 (test code = 754) NUCLEATED RED BLOOD CELLS 0 /100 WBC 0-0 (BEAKER) (test code = 413) RAD, CHEST, 1 VIEW, NON [id number] 17:12:00Reason for exam:->cough, feverShould this be performed at the bedside?->No [facility] : 1965 Sex: FFINAL REPORT TECHNIQUE: Frontal view of the chest. INDICATION: cough, fever.COMPARISON: 08/30/2021. FINDINGS: LINES/TUBES: Left PICC line tip projected over the mid SVC. Right IJpheresis catheter tip projects over the right atrium, unchanged. HEART AND MEDIASTINUM: Cardiomediastinal contour is stable. LUNGS: Slight improvement in bilateral interstitial opacities. No focal consolidative process. PLEURA: No pneumothorax. No significant pleural effusion. SOFT TISSUES AND BONES: Old healed right humeral neck fracture, unchanged. Gastrostomy tube is noted. IMPRESSION: 1. Right PICC line has been slightly withdrawn with the tip now projects over the mid SVC. Right IJ catheter remains unchanged. No pneumothorax.2. Low lung volumes. Slight improvement in bilateral interstitial opacities; these remain asymmetrically prominent on the left. Signed: Jaime Garcia MDReport Verified Date/Time: 09/14/2021 17:12:21 BASI METABOLIC [id number] 14:20:30 Test Item Value Reference Range Interpretation Comments SODIUM (BEAKER) 137 meq/L 136-145 (test code = 381) POTASSIUM (BEAKER) 3.4 meq/L 3.5-5.1 L Specimen slightly (test code = 379) hemolyzed CHLORIDE (BEAKER) 101 meq/L 98-107 (test code = 382) CO2 (BEAKER) (test 26 meq/L 22-29 code = 355) BLOOD UREA NITROGEN 6 mg/dL 7-21 L (BEAKER) (test code = 354) CREATININE (BEAKER) 2.79 mg/dL 0.57-1.25 H Specimen slightly (test code = 358) hemolyzed GLUCOSE RANDOM 119 mg/dL 70-105 H (BEAKER) (test code = 652) CALCIUM (BEAKER) 7.9 mg/dL 8.4-10.2 L (test code = 697) EGFR (BEAKER) (test 21 mL/min/1.73 ESTIMA SALLY GFR IS code = 1092) sq m NOT ACCURATE CREATININE CLEARANCE IN PREDICTING GLOMERULAR FILTRATION RATE . ESTIMATED GFR I S NOT APPLICABLE FOR DIALYSIS PATIEN TS. Air Brush Operator ID - [id number] 14:12:02 Test Item Value Reference Range Interpretation Comments MAGNESIUM (BEAKER) 1.9 mg/dL 1.6-2.6 Specimen slightly (test code = 627) hemolyzed Air Brush Operator ID - [id number] 14:12:02 Test Item Value Reference Range Interpretation Comments PHOSPHORUS (BEAKER) 2.2 mg/dL 2.3-4.7 L Specimen slightly (test code = 604) hemolyzed Air Brush Operator ID - BSCBC W/PLT COUNT & AUTO [id number] 14:05:43 Test Item Value Reference Range Interpretation Comments WHITE BLOOD CELL COUNT (BEAKER) 5.3 K/ L 3.5-10.5 (test code = 775) RED BLOOD CELL COUNT (BEAKER) 2.81 M/ L 3.93-5.22 L (test code = 761) HEMOGLOBIN (BEAKER) (test code = 8.6 GM/DL 11.2-15.7 L 410) HEMATOCRIT (BEAKER) (test code = 27.8 % 34.1-44.9 L 411) MEAN CORPUSCULAR VOLUME (BEAKER) 98.9 fL 79.4-94.8 H (test code = 753) MEAN CORPUSCULAR HEMOGLOBIN 30.6 pg 25.6-32.2 (BEAKER) (test code = 751) MEAN CORPUSCULAR HEMOGLOBIN CONC 30.9 GM/DL 32.2-35.5 L (BEAKER) (test code = 752) RED CELL DISTRIBUTION WIDTH 21.7 % 11.7-14.4 H (BEAKER) (test code = 412) PLATELET COUNT (BEAKER) (test 221 K/CU MM 150-450 code = 756) MEAN PLATELET VOLUME (BEAKER) 9.6 fL 9.4-12.3 (test code = 754) NUCLEATED RED BLOOD CELLS 0 /100 WBC 0-0 (BEAKER) (test code = 413) NEUTROPHILS RELATIVE PERCENT 63 % (BEAKER) (test code = 429) LYMPHOCYTES RELATIVE PERCENT 11 % (BEAKER) (test code = 430) MONOCYTES RELATIVE PERCENT 23 % (BEAKER) (test code = 431) EOSINOPHILS RELATIVE PERCENT 1 % (BEAKER) (test code = 432) BASOPHILS RELATIVE PERCENT 1 % (BEAKER) (test code = 437) NEUTROPHILS ABSOLUTE COUNT 3.31 K/ L 1.56-6.13 (BEAKER) (test code = 670) LYMPHOCYTES ABSOLUTE COUNT 0.57 K/ L 1.18-3.74 L (BEAKER) (test code = 414) MONOCYTES ABSOLUTE COUNT (BEAKER) 1.21 K/ L 0.24-0.36 H (test code = 415) EOSINOPHILS ABSOLUTE COUNT 0.07 K/ L 0.04-0.36 (BEAKER) (test code = 416) BASOPHILS ABSOLUTE COUNT (BEAKER) 0.03 K/ L 0.01-0.08 (test code = 417) IMMATURE GRANULOCYTES-RELATIVE 2 % 0-1 H PERCENT (BEAKER) (test code = 2801) POCT-GLUCOSE [id number] 12:21:16 Test Item Value Reference Range Interpretation Comments POC-GLUCOSE METER 82 mg/dL 70-110 : TESTED A T [facility] 6720 (BEAKER) (test code = [facility], 1538) 46356: Air Brush Operator/Techni daniel ID = [id number] for rCystal Varghese POCT-GLUCOSE [id number] 07:31:12 Test Item Value Reference Range Interpretation Comments POC-GLUCOSE METER 94 mg/dL 70-110 : TESTED A T [facility] 6720 (BEAKER) (test code = [facility], 1538) 37281: Air Brush Operator/Techni daniel ID = [id number] for Sam rson, Najae POCT-GLUCOSE [id number] 06:33:11 Test Item Value Reference Range Interpretation Comments POC-GLUCOSE METER 66 mg/dL 70-110 L : TESTED A T [facility] 6720 (BEAKER) (test code = [facility], 1538) 08845: Air Brush Operator/Techni daniel ID = [id number] for Sam rson, Najae POCT-GLUCOSE [id number] 01:18:11 Test Item Value Reference Range Interpretation Comments POC-GLUCOSE METER 94 mg/dL 70-110 : TESTED A T [facility] 6720 (BEAKER) (test code = [facility], 153) 09179: Air Brush Operator/Techni daniel ID = [id number] for Rita Baca POCT-GLUCOSE [id number] 00:41:03 Test Item Value Reference Range Interpretation Comments POC-GLUCOSE METER 73 mg/dL 70-110 : TESTED A T [facility] 6720 (BEAKER) (test code = [facility], 1538) 62948: Air Brush Operator/Techni daniel ID = [id number] for Rita Baca POCT-GLUCOSE [id number] 19:01:25 Test Item Value Reference Range Interpretation Comments POC-GLUCOSE METER 85 mg/dL 70-110 : TESTED A T [facility] 6720 (BEAKER) (test code = [facility], [employer]) 59014: Air Brush Operator/Techni daniel ID = [id number] for Aníbal Flores POCT-GLUCOSE [id number] 12:53:55 Test Item Value Reference Range Interpretation Comments POC-GLUCOSE METER 76 mg/dL 70-110 : TESTED A T [facility] 6720 (BEAKER) (test code = [facility], 1538) 15288: Air Brush Operator/Techni daniel ID = [id number] for Crystal Varghese POCT-GLUCOSE [id number] 06:10:51 Test Item Value Reference Range Interpretation Comments POC-GLUCOSE METER 74 mg/dL 70-110 : TESTED A T [facility] 6720 (BEAKER) (test code = [facility], [employer]) 80790: Air Brush Operator/Techni daniel ID = [id number] for MIGUELITO CAMPUZANO POCT-GLUCOSE [id number] 23:49:08 Test Item Value Reference Range Interpretation Comments POC-GLUCOSE METER 70 mg/dL 70-110 : TESTED A T [facility] 6720 (BEAKER) (test code = [facility], 1538) 76606: Air Brush Operator/Techni daniel ID = [id number] for MIGUELITO CAMPUZANO POCT-GLUCOSE [id number] 18:55:34 Test Item Value Reference Range Interpretation Comments POC-GLUCOSE METER 72 mg/dL 70-110 : TESTED A T [facility] 6720 (BEAKER) (test code = [facility], 153) 25599: Air Brush Operator/Techni daniel ID = [id number] for ROSSANA SALINAS HEPATITIS B SURFACE [id number] 15:59:47 Test Item Value Reference Range Interpretation Comments HEPATITIS B SURFACE ANTIGEN (2) Nonreactive Nonreactive (BEAKER) (test code = 2585) Specimen is considered negative for HBsAg.POCT-GLUCOSE [id number] 13:47:27 Test Item Value Reference Range Interpretation Comments POC-GLUCOSE METER 127 mg/dL 70-110 H : TESTED A T [facility] 6720 (BEAKER) (test code = [facility], 153) 08228: Air Brush Operator/Techni daniel ID = [id number] for FELICIANO LEONARD POCT-GLUCOSE [id number] 13:11:52 Test Item Value Reference Range Interpretation Comments POC-GLUCOSE METER 66 mg/dL 70-110 L : TESTED A T [facility] 6720 (BEAKER) (test code = [facility], 153) 22595: Air Brush Operator/Techni daniel ID = [id number] for Janes Acosta POCT-GLUCOSE [id number] 06:41:15 Test Item Value Reference Range Interpretation Comments POC-GLUCOSE METER 78 mg/dL 70-110 : TESTED A T [facility] 6720 (BEAKER) (test code = [facility], 153) 69657: Air Brush Operator/Techni daniel ID = [id number] for Leidy Wolf BASIC METABOLIC [id number] 06:03:05 Test Item Value Reference Range Interpretation Comments SODIUM (BEAKER) 135 meq/L 136-145 L (test code = 381) POTASSIUM (BEAKER) 3.6 meq/L 3.5-5.1 (test code = 379) CHLORIDE (BEAKER) 101 meq/L 98-107 (test code = 382) CO2 (BEAKER) (test 22 meq/L 22-29 code = 355) BLOOD UREA NITROGEN 19 mg/dL 7-21 (BEAKER) (test code = 354) CREATININE (BEAKER) 5.20 mg/dL 0.57-1.25 H (test code = 358) GLUCOSE RANDOM 78 mg/dL 70-105 (BEAKER) (test code = 652) CALCIUM (BEAKER) 8.3 mg/dL 8.4-10.2 L (test code = 697) EGFR (BEAKER) (test 10 mL/min/1.73 ESTIMA SALLY GFR IS code = 1092) sq m NOT ACCURATE CREATININE CLEARANCE IN PREDICTING GLOMERULAR FILTRATION RATE . ESTIMATED GFR I S NOT APPLICABLE FOR DIALYSIS PATIEN TS. Air Brush Operator ID - [id number] W/PLT COUNT & AUTO [id number] 05:27:35 Test Item Value Reference Range Interpretation Comments WHITE BLOOD CELL COUNT (BEAKER) 6.5 K/ L 3.5-10.5 (test code = 775) RED BLOOD CELL COUNT (BEAKER) 2.98 M/ L 3.93-5.22 L (test code = 761) HEMOGLOBIN (BEAKER) (test code = 9.2 GM/DL 11.2-15.7 L 410) HEMATOCRIT (BEAKER) (test code = 29.6 % 34.1-44.9 L 411) MEAN CORPUSCULAR VOLUME (BEAKER) 99.3 fL 79.4-94.8 H (test code = 753) MEAN CORPUSCULAR HEMOGLOBIN 30.9 pg 25.6-32.2 (BEAKER) (test code = 751) MEAN CORPUSCULAR HEMOGLOBIN CONC 31.1 GM/DL 32.2-35.5 L (BEAKER) (test code = 752) RED CELL DISTRIBUTION WIDTH 21.4 % 11.7-14.4 H (BEAKER) (test code = 412) PLATELET COUNT (BEAKER) (test 286 K/CU MM 150-450 code = 756) MEAN PLATELET VOLUME (BEAKER) 9.3 fL 9.4-12.3 L (test code = 754) NUCLEATED RED BLOOD CELLS 0 /100 WBC 0-0 (BEAKER) (test code = 413) NEUTROPHILS RELATIVE PERCENT 55 % (BEAKER) (test code = 429) LYMPHOCYTES RELATIVE PERCENT 27 % (BEAKER) (test code = 430) MONOCYTES RELATIVE PERCENT 12 % (BEAKER) (test code = 431) EOSINOPHILS RELATIVE PERCENT 4 % (BEAKER) (test code = 432) BASOPHILS RELATIVE PERCENT 1 % (BEAKER) (test code = 437) NEUTROPHILS ABSOLUTE COUNT 3.59 K/ L 1.56-6.13 (BEAKER) (test code = 670) LYMPHOCYTES ABSOLUTE COUNT 1.74 K/ L 1.18-3.74 (BEAKER) (test code = 414) MONOCYTES ABSOLUTE COUNT (BEAKER) 0.79 K/ L 0.24-0.36 H (test code = 415) EOSINOPHILS ABSOLUTE COUNT 0.24 K/ L 0.04-0.36 (BEAKER) (test code = 416) BASOPHILS ABSOLUTE COUNT (BEAKER) 0.06 K/ L 0.01-0.08 (test code = 417) IMMATURE GRANULOCYTES-RELATIVE 2 % 0-1 H PERCENT (BEAKER) (test code = 2801) [id number] 05:03:14 Test Item Value Reference Range Interpretation Comments PARTIAL THROMBOPLASTIN TIME 70.9 seconds 22.5-36.0 H (BEAKER) (test code = 760) POCT-GLUCOSE [id number] 23:57:21 Test Item Value Reference Range Interpretation Comments POC-GLUCOSE METER 77 mg/dL 70-110 : TESTED A T [facility] 6720 (BEAKER) (test code = [place], 1538) 220[address]: Air Brush Operator/Techni daniel ID = [id number] for Leidy Wolf [id number] 18:38:34 Test Item Value Reference Range Interpretation Comments PARTIAL THROMBOPLASTIN TIME 84.5 seconds 22.5-36.0 H (BEAKER) (test code = 760) CBC (HEMOGRAM ONLY)2021-09-11 18:22:44 Test Item Value Reference Range Interpretation Comments WHITE BLOOD CELL COUNT (BEAKER) 6.2 K/ L 3.5-10.5 (test code = 775) RED BLOOD CELL COUNT (BEAKER) 3.03 M/ L 3.93-5.22 L (test code = 761) HEMOGLOBIN (BEAKER) (test code = 9.2 GM/DL 11.2-15.7 L 410) HEMATOCRIT (BEAKER) (test code = 29.7 % 34.1-44.9 L 411) MEAN CORPUSCULAR VOLUME (BEAKER) 98.0 fL 79.4-94.8 H (test code = 753) MEAN CORPUSCULAR HEMOGLOBIN 30.4 pg 25.6-32.2 (BEAKER) (test code = 751) MEAN CORPUSCULAR HEMOGLOBIN CONC 31.0 GM/DL 32.2-35.5 L (BEAKER) (test code = 752) RED CELL DISTRIBUTION WIDTH 21.6 % 11.7-14.4 H (BEAKER) (test code = 412) PLATELET COUNT (BEAKER) (test 266 K/CU MM 150-450 code = 756) MEAN PLATELET VOLUME (BEAKER) 9.5 fL 9.4-12.3 (test code = 754) NUCLEATED RED BLOOD CELLS 0 /100 WBC 0-0 (BEAKER) (test code = 413) POCT-GLUCOSE [id number] 18:08:00 Test Item Value Reference Range Interpretation Comments POC-GLUCOSE METER 74 mg/dL 70-110 : TESTED A T [facility] 6720 (BEAKER) (test code = [facility], [employer]) 60144: Air Brush Operator/Techni daniel ID = [id number] for [place], [employer] POCT-GLUCOSE [id number] 13:12:29 Test Item Value Reference Range Interpretation Comments POC-GLUCOSE METER 69 mg/dL 70-110 L : TESTED A T [facility] 6720 (AKER) (test code = [facility], [employer]) 66847: Air Brush Operator/Techni daniel ID = [id number] for [place], [employer] [id number] 12:30:50 Test Item Value Reference Range Interpretation Comments PARTIAL THROMBOPLASTIN TIME 77.2 seconds 22.5-36.0 H (BEAKER) (test code = 760) POCT-GLUCOSE [id number] 10:56:50 Test Item Value Reference Range Interpretation Comments POC-GLUCOSE METER 86 mg/dL 70-110 : TESTED A T [facility] 6720 (BEAKER) (test code = [facility], [employer]) 68878: Air Brush Operator/Techni daniel ID = [id number] for Shailesh goode, Bernardo POCT-GLUCOSE [id number] 06:43:38 Test Item Value Reference Range Interpretation Comments POC-GLUCOSE METER 74 mg/dL 70-110 : TESTED A T [facility] 6720 (BEAKER) (test code = [facility], [employer]) 11043: Air Brush Operator/Techni daniel ID = [id number] for Wemildred er, Leidy [id number] 05:37:41 Test Item Value Reference Range Interpretation Comments PARTIAL THROMBOPLASTIN TIME 55.9 seconds 22.5-36.0 H (BEAKER) (test code = 760) [id number] 03:37:37 Test Item Value Reference Range Interpretation Comments PARTIAL THROMBOPLASTIN TIME 137.2 seconds 22.5-36.0 H (BEAKER) (test code = 760) POCT-GLUCOSE [id number] 01:19:33 Test Item Value Reference Range Interpretation Comments POC-GLUCOSE METER 78 mg/dL 70-110 : TESTED A T [facility] 6720 (BEAKER) (test code = [facility], 1538) 06350: Air Brush Operator/Techni daniel ID = [id number] for Leidy Wolf [id number] 18:12:08 Test Item Value Reference Range Interpretation Comments PARTIAL THROMBOPLASTIN TIME 108.3 seconds 22.5-36.0 H (BEAKER) (test code = 760) POCT-GLUCOSE [id number] 17:37:49 Test Item Value Reference Range Interpretation Comments POC-GLUCOSE METER 71 mg/dL 70-110 : TESTED A T [facility] 6720 (BEAKER) (test code = [facility], 1538) 14502: Air Brush Operator/Techni daniel ID = [id number] for BRENDON NEERAJ, CATHY POCT-GLUCOSE [id number] 11:56:09 Test Item Value Reference Range Interpretation Comments POC-GLUCOSE METER 91 mg/dL 70-110 : TESTED A T [facility] 6720 (BEAKER) (test code = [facility], 1538) 66671: Air Brush Operator/Techni daniel ID = [id number] for BRENDON NEERAJ, CATHY [id number] 10:59:29 Test Item Value Reference Range Interpretation Comments PARTIAL THROMBOPLASTIN TIME 49.1 seconds 22.5-36.0 H (BEAKER) (test code = 760) [id number] 09:34:25 Test Item Value Reference Range Interpretation Comments PARTIAL THROMBOPLASTIN TIME 119.2 seconds 22.5-36.0 H (BEAKER) (test code = 760) POCT-GLUCOSE [id number] 08:13:50 Test Item Value Reference Range Interpretation Comments POC-GLUCOSE METER 72 mg/dL 70-110 : TESTED A T [facility] 6720 (BEAKER) (test code = [facility], 1538) 09145: Air Brush Operator/Techni daniel ID = [id number] for CATHY HONEYCUTT POCT-GLUCOSE [id number] 07:13:36 Test Item Value Reference Range Interpretation Comments POC-GLUCOSE METER 66 mg/dL 70-110 L : TESTED A T [facility] 6720 (BEAKER) (test code = [facility], [employer]) 68577: Air Brush Operator/Techni daniel ID = [id number] for Leidy Wolf [id number] 03:21:24 Test Item Value Reference Range Interpretation Comments PARTIAL THROMBOPLASTIN TIME 70.8 seconds 22.5-36.0 H (BEAKER) (test code = 760) POCT-GLUCOSE [id number] 00:46:57 Test Item Value Reference Range Interpretation Comments POC-GLUCOSE METER 79 mg/dL 70-110 : TESTED A T [facility] 6720 (BEAKER) (test code = [facility], [employer]) 67620: Air Brush Operator/Techni daniel ID = [id number] for Leidy Wolf [id number] 17:47:53 Test Item Value Reference Range Interpretation Comments PARTIAL THROMBOPLASTIN TIME 26.9 seconds 22.5-36.0 (BEAKER) (test code = 760) POCT-GLUCOSE [id number] 17:29:51 Test Item Value Reference Range Interpretation Comments POC-GLUCOSE METER 86 mg/dL 70-110 : TESTED A T [facility] 6720 (BEAKER) (test code = [facility], [facility]) 96693: Air Brush Operator/Techni daniel ID = [id number] for CATHY HONEYCUTT SARS-COV2/RT-PCR ([facility])2021-09-09 16:21:38 Test Item Value Reference Range Interpretation Comments SARS-COV2/RT-PCR Negative Negative The SARS-Co V-2 target (test code = nucleic acids a re not [id number]) detected in thi s specimen. Negative result s do not preclude SARS-C oV-2 infection and s hould not be used as the nataly e basis for patient managem ent decisions. Nega tive results must be combine d with clinical observ ations, patient history , and epidemiological information. A false negativ e result may occur if a spec imen is improperly ruiz ected, transported or handled. This SARS CoV-2 test is a rapid, real-time RT-PC R test intended for th e qualitative detection of nu cleic acid from SARS-CoV-2 in a nasopharyngeal swab specimen collected from individuals suspected of CO VID-19 by their healthcar e provider. This test has been authorized by FDA under an EUA for use by authorized laboratories. This test is only authorized for the duration of the declaration that circumstances exist justifying the authorization of emergency use of in vitro diagnostic tests for detection and/or diagnosis of COVID-19 under Section 564(b)(1) of the Federal Food, Drug and Cosmetic Act, 21 U.S.C. 360bbb-3(b)(1), unless the authorization is terminated or revoked sooner. Fact Sheet for Healthcare Providers: https://www.[employer] m/Documents/Xpert%20Xpress%20SARS%20CoV-2/Fact%20Sheets/302-3802%19DSVG-RIO-4%20 HEALTHCARE%20PROVIDERS%20FACT%20SHEET.pdf Fact Sheet for Healthcare Patients: https://www.[employer]/Documents/Xpert%20Xp ress%20SARS%20CoV-2/Fact%20Sheets/302-3801%65SWQN-YYW-4%20PATIENT%20FACT%20SHEET .pdfPOCT-GLUCOSE [id number] 12:24:09 Test Item Value Reference Range Interpretation Comments POC-GLUCOSE METER 76 mg/dL 70-110 : [facility] ([employer]) (test code = MICHAELLEDC Kevin [facility], 153) 16227: Air Brush Operator/Techni daniel ID = [id number] for CATHY HONEYCUTT POCT-GLUCOSE [id number] 10:14:48 Test Item Value Reference Range Interpretation Comments POC-GLUCOSE METER 71 mg/dL 70-110 : TESTED A T [facility] 6720 ([employer]) (test code = [facility], 1538) 02737: Air Brush Operator/Techni daniel ID = [id number] for Scooby Bradley MISCELLANEOUS LAB [id number] 09:27:23 Test Item Value Reference Range Interpretation Comments SCAN RESULT (test code = See scanned report [id number]) See scanned [id number] 08:22:05 Test Item Value Reference Range Interpretation Comments PARTIAL THROMBOPLASTIN TIME 92.7 seconds 22.5-36.0 H (BEAKER) (test code = 760) BASIC METABOLIC [id number] 07:14:28 Test Item Value Reference Range Interpretation Comments SODIUM (BEAKER) 136 meq/L 136-145 (test code = 381) POTASSIUM (BEAKER) 3.0 meq/L 3.5-5.1 L (test code = 379) CHLORIDE (BEAKER) 100 meq/L 98-107 (test code = 382) CO2 (BEAKER) (test 24 meq/L 22-29 code = 355) BLOOD UREA NITROGEN 13 mg/dL 7-21 (BEAKER) (test code = 354) CREATININE (BEAKER) 4.46 mg/dL 0.57-1.25 H (test code = 358) GLUCOSE RANDOM 79 mg/dL 70-105 (BEAKER) (test code = 652) CALCIUM (BEAKER) 8.6 mg/dL 8.4-10.2 (test code = 697) EGFR (BEAKER) (test 12 mL/min/1.73 ESTIMA SALLY GFR IS code = 1092) sq m NOT ACCURATE CREATININE CLEARANCE IN PREDICTING GLOMERULAR FILTRATION RATE . ESTIMATED GFR I S NOT APPLICABLE FOR DIALYSIS PATIEN TS. Air Brush Operator ID - THEE [id number] 07:07:43 Test Item Value Reference Range Interpretation Comments PHOSPHORUS (BEAKER) (test code = 4.0 mg/dL 2.3-4.7 604) Air Brush Operator ID - THEE [id number] 07:07:42 Test Item Value Reference Range Interpretation Comments MAGNESIUM (BEAKER) (test code = 1.9 mg/dL 1.6-2.6 627) Air Brush Operator ID - THEE GPOCT-GLUCOSE [id number] 06:22:47 Test Item Value Reference Range Interpretation Comments POC-GLUCOSE METER 83 mg/dL 70-110 : TESTED A T [facility] 6720 (BEAKER) (test code = [place], 1538) 75377: Air Brush Operator/Techni daniel ID = [id number] for MIGUELITO CAMPUZANO PROTHROMBIN TIME/[id number] 06:05:39 Test Item Value Reference Range Interpretation Comments PROTIME (BEAKER) 15.4 seconds 11.9-14.2 H (test code = 759) INR (BEAKER) (test 1.24 See_Comment [Automat ed message] code = 370) The system [employer] generated this result transmitted ref erence range: <=5.90. The reference range was not used to int erpret this result as normal/abnormal . RECOMMENDED COUMADIN/WARFARIN INR THERAPY RANGESSTANDARD DOSE: 2.0 - 3.0 Includes: PROPHYLAXIS for venous thrombosis, systemic embolization; TREATMENT for venous thrombosis and/or pulmonary embolus.HIGH RISK: Target INR is 2.5-3.5 for patients with mechanical heart valves.CBC W/PLT COUNT & AUTO [id number] 05:55:10 Test Item Value Reference Range Interpretation Comments WHITE BLOOD CELL COUNT (BEAKER) 5.4 K/ L 3.5-10.5 (test code = 775) RED BLOOD CELL COUNT (BEAKER) 2.97 M/ L 3.93-5.22 L (test code = 761) HEMOGLOBIN (BEAKER) (test code = 9.2 GM/DL 11.2-15.7 L 410) HEMATOCRIT (BEAKER) (test code = 29.8 % 34.1-44.9 L 411) MEAN CORPUSCULAR VOLUME (BEAKER) 100.3 fL 79.4-94.8 H (test code = 753) MEAN CORPUSCULAR HEMOGLOBIN 31.0 pg 25.6-32.2 (BEAKER) (test code = 751) MEAN CORPUSCULAR HEMOGLOBIN CONC 30.9 GM/DL 32.2-35.5 L (BEAKER) (test code = 752) RED CELL DISTRIBUTION WIDTH 22.2 % 11.7-14.4 H (BEAKER) (test code = 412) PLATELET COUNT (BEAKER) (test 246 K/CU MM 150-450 code = 756) MEAN PLATELET VOLUME (BEAKER) 9.8 fL 9.4-12.3 (test code = 754) NUCLEATED RED BLOOD CELLS 0 /100 WBC 0-0 (BEAKER) (test code = 413) NEUTROPHILS RELATIVE PERCENT 57 % (BEAKER) (test code = 429) LYMPHOCYTES RELATIVE PERCENT 22 % (BEAKER) (test code = 430) MONOCYTES RELATIVE PERCENT 15 % (BEAKER) (test code = 431) EOSINOPHILS RELATIVE PERCENT 3 % (BEAKER) (test code = 432) BASOPHILS RELATIVE PERCENT 1 % (BEAKER) (test code = 437) NEUTROPHILS ABSOLUTE COUNT 3.11 K/ L 1.56-6.13 (BEAKER) (test code = 670) LYMPHOCYTES ABSOLUTE COUNT 1.22 K/ L 1.18-3.74 (BEAKER) (test code = 414) MONOCYTES ABSOLUTE COUNT (BEAKER) 0.82 K/ L 0.24-0.36 H (test code = 415) EOSINOPHILS ABSOLUTE COUNT 0.18 K/ L 0.04-0.36 (BEAKER) (test code = 416) BASOPHILS ABSOLUTE COUNT (BEAKER) 0.04 K/ L 0.01-0.08 (test code = 417) IMMATURE GRANULOCYTES-RELATIVE 1 % 0-1 PERCENT (BEAKER) (test code = 2801) [id number] 01:10:08 Test Item Value Reference Range Interpretation Comments PARTIAL THROMBOPLASTIN TIME 51.7 seconds 22.5-36.0 H (BEAKER) (test code = 760) POCT-GLUCOSE [id number] 23:49:41 Test Item Value Reference Range Interpretation Comments POC-GLUCOSE METER 74 mg/dL 70-110 : TESTED A T [facility] 6720 (BEAKER) (test code = [place], 1538) 69295: Air Brush Operator/Techni daniel ID = [id number] for MIGUELITO CAMPUZANO CBC (HEMOGRAM ONLY)2021-09-08 18:13:52 Test Item Value Reference Range Interpretation Comments WHITE BLOOD CELL COUNT (BEAKER) 6.4 K/ L 3.5-10.5 (test code = 775) RED BLOOD CELL COUNT (BEAKER) 3.20 M/ L 3.93-5.22 L (test code = 761) HEMOGLOBIN (BEAKER) (test code = 9.9 GM/DL 11.2-15.7 L 410) HEMATOCRIT (BEAKER) (test code = 31.2 % 34.1-44.9 L 411) MEAN CORPUSCULAR VOLUME (BEAKER) 97.5 fL 79.4-94.8 H (test code = 753) MEAN CORPUSCULAR HEMOGLOBIN 30.9 pg 25.6-32.2 (BEAKER) (test code = 751) MEAN CORPUSCULAR HEMOGLOBIN CONC 31.7 GM/DL 32.2-35.5 L (BEAKER) (test code = 752) RED CELL DISTRIBUTION WIDTH 22.2 % 11.7-14.4 H (BEAKER) (test code = 412) PLATELET COUNT (BEAKER) (test 266 K/CU MM 150-450 code = 756) MEAN PLATELET VOLUME (BEAKER) 9.8 fL 9.4-12.3 (test code = 754) NUCLEATED RED BLOOD CELLS 0 /100 WBC 0-0 (BEAKER) (test code = 413) POCT-GLUCOSE [id number] 17:34:42 Test Item Value Reference Range Interpretation Comments POC-GLUCOSE METER 78 mg/dL 70-110 : TESTED A T [facility] 6720 (BEAKER) (test code = [facility], 1538) 23520: Air Brush Operator/Techni daniel ID = [id number] for [place], [employer] [id number] 16:13:30 Test Item Value Reference Range Interpretation Comments PARTIAL THROMBOPLASTIN TIME 50.8 seconds 22.5-36.0 H (BEAKER) (test code = 760) [id number] 14:57:35 Test Item Value Reference Range Interpretation Comments PARTIAL THROMBOPLASTIN TIME > seconds 22.5-36.0 HH (BEAKER) (test code = 760) POCT-GLUCOSE [id number] 12:28:52 Test Item Value Reference Range Interpretation Comments POC-GLUCOSE METER 88 mg/dL 70-110 : TESTED A T [facility] 6720 (BEAKER) (test code = [facility], 1538) 77534: Air Brush Operator/Techni daniel ID = [id number] for [place], [employer] [id number] 07:11:35 Test Item Value Reference Range Interpretation Comments PARTIAL THROMBOPLASTIN TIME 55.9 seconds 22.5-36.0 H (BEAKER) (test code = 760) [id number] 22:36:09 Test Item Value Reference Range Interpretation Comments PARTIAL THROMBOPLASTIN TIME 106.1 seconds 22.5-36.0 H (BEAKER) (test code = 760) [id number] 20:46:48 Test Item Value Reference Range Interpretation Comments PARTIAL THROMBOPLASTIN TIME > seconds 22.5-36.0 HH (BEAKER) (test code = 760) [id number] 11:12:06 Test Item Value Reference Range Interpretation Comments PARTIAL THROMBOPLASTIN TIME 89.5 seconds 22.5-36.0 H (BEAKER) (test code = 760) [id number] 09:44:23 Test Item Value Reference Range Interpretation Comments PARTIAL THROMBOPLASTIN TIME 154.4 seconds 22.5-36.0 HH (BEAKER) (test code = 760) [id number] 00:28:57 Test Item Value Reference Range Interpretation Comments PARTIAL THROMBOPLASTIN TIME 63.4 seconds 22.5-36.0 H (BEAKER) (test code = 760) [id number] 17:46:24 Test Item Value Reference Range Interpretation Comments PARTIAL THROMBOPLASTIN TIME 46.8 seconds 22.5-36.0 H (BEAKER) (test code = 760) [id number] 09:28:45 Test Item Value Reference Range Interpretation Comments PARTIAL THROMBOPLASTIN TIME 31.6 seconds 22.5-36.0 (BEAKER) (test code = 760) [id number] 07:27:38 Test Item Value Reference Range Interpretation Comments PARTIAL THROMBOPLASTIN TIME 186.4 seconds 22.5-36.0 HH (BEAKER) (test code = 760) [id number] 04:56:25 Test Item Value Reference Range Interpretation Comments PARTIAL THROMBOPLASTIN TIME 138.6 seconds 22.5-36.0 H (BEAKER) (test code = 760) [id number] 21:52:53 Test Item Value Reference Range Interpretation Comments PARTIAL THROMBOPLASTIN TIME 31.8 seconds 22.5-36.0 (BEAKER) (test code = 760) CBC (HEMOGRAM ONLY)2021-09-05 21:39:22 Test Item Value Reference Range Interpretation Comments WHITE BLOOD CELL COUNT (BEAKER) 6.3 K/ L 3.5-10.5 (test code = 775) RED BLOOD CELL COUNT (BEAKER) 3.13 M/ L 3.93-5.22 L (test code = 761) HEMOGLOBIN (BEAKER) (test code = 9.6 GM/DL 11.2-15.7 L 410) HEMATOCRIT (BEAKER) (test code = 31.4 % 34.1-44.9 L 411) MEAN CORPUSCULAR VOLUME (BEAKER) 100.3 fL 79.4-94.8 H (test code = 753) MEAN CORPUSCULAR HEMOGLOBIN 30.7 pg 25.6-32.2 (BEAKER) (test code = 751) MEAN CORPUSCULAR HEMOGLOBIN CONC 30.6 GM/DL 32.2-35.5 L (BEAKER) (test code = 752) RED CELL DISTRIBUTION WIDTH 23.7 % 11.7-14.4 H (BEAKER) (test code = 412) PLATELET COUNT (BEAKER) (test 235 K/CU MM 150-450 code = 756) MEAN PLATELET VOLUME (BEAKER) 9.4 fL 9.4-12.3 (test code = 754) NUCLEATED RED BLOOD CELLS 0 /100 WBC 0-0 (BEAKER) (test code = 413) POCT-GLUCOSE [id number] 11:22:59 Test Item Value Reference Range Interpretation Comments POC-GLUCOSE METER 60 mg/dL 70-110 L : TESTED A T [facility] 6720 (BEAKER) (test code = [place], 1538) 83158: Air Brush Operator/Techni daniel ID = [id number] for ROSSANA SALINAS BASIC METABOLIC [id number] 06:09:12 Test Item Value Reference Range Interpretation Comments SODIUM (BEAKER) 137 meq/L 136-145 (test code = 381) POTASSIUM (BEAKER) 3.5 meq/L 3.5-5.1 (test code = 379) CHLORIDE (BEAKER) 102 meq/L 98-107 (test code = 382) CO2 (BEAKER) (test 22 meq/L 22-29 code = 355) BLOOD UREA NITROGEN 28 mg/dL 7-21 H (BEAKER) (test code = 354) CREATININE (BEAKER) 6.37 mg/dL 0.57-1.25 H (test code = 358) GLUCOSE RANDOM 67 mg/dL 70-105 L (BEAKER) (test code = 652) CALCIUM (BEAKER) 7.9 mg/dL 8.4-10.2 L (test code = 697) EGFR (BEAKER) (test 8 mL/min/1.73 ESTIMAT ED GFR IS code = 1092) sq m NOT ACCURATE CREATININE CLEARANCE IN PREDICTING GLOMERULAR FILTRATION RATE . ESTIMATED GFR I S NOT APPLICABLE FOR DIALYSIS PATIEN TS. Air Brush Operator ID - BANDAR [facility]BC W/PLT COUNT & AUTO [id number] 05:37:39 Test Item Value Reference Range Interpretation Comments WHITE BLOOD CELL COUNT (BEAKER) 5.9 K/ L 3.5-10.5 (test code = 775) RED BLOOD CELL COUNT (BEAKER) 2.62 M/ L 3.93-5.22 L (test code = 761) HEMOGLOBIN (BEAKER) (test code = 8.2 GM/DL 11.2-15.7 L 410) HEMATOCRIT (BEAKER) (test code = 25.9 % 34.1-44.9 L 411) MEAN CORPUSCULAR VOLUME (BEAKER) 98.9 fL 79.4-94.8 H (test code = 753) MEAN CORPUSCULAR HEMOGLOBIN 31.3 pg 25.6-32.2 (BEAKER) (test code = 751) MEAN CORPUSCULAR HEMOGLOBIN CONC 31.7 GM/DL 32.2-35.5 L (BEAKER) (test code = 752) RED CELL DISTRIBUTION WIDTH 24.1 % 11.7-14.4 H (BEAKER) (test code = 412) PLATELET COUNT (BEAKER) (test 262 K/CU MM 150-450 code = 756) MEAN PLATELET VOLUME (BEAKER) 9.3 fL 9.4-12.3 L (test code = 754) NUCLEATED RED BLOOD CELLS 0 /100 WBC 0-0 (BEAKER) (test code = 413) NEUTROPHILS RELATIVE PERCENT 60 % (BEAKER) (test code = 429) LYMPHOCYTES RELATIVE PERCENT 23 % (BEAKER) (test code = 430) MONOCYTES RELATIVE PERCENT 13 % (BEAKER) (test code = 431) EOSINOPHILS RELATIVE PERCENT 2 % (BEAKER) (test code = 432) BASOPHILS RELATIVE PERCENT 1 % (BEAKER) (test code = 437) NEUTROPHILS ABSOLUTE COUNT 3.51 K/ L 1.56-6.13 (BEAKER) (test code = 670) LYMPHOCYTES ABSOLUTE COUNT 1.34 K/ L 1.18-3.74 (BEAKER) (test code = 414) MONOCYTES ABSOLUTE COUNT (BEAKER) 0.78 K/ L 0.24-0.36 H (test code = 415) EOSINOPHILS ABSOLUTE COUNT 0.14 K/ L 0.04-0.36 (BEAKER) (test code = 416) BASOPHILS ABSOLUTE COUNT (BEAKER) 0.03 K/ L 0.01-0.08 (test code = 417) IMMATURE GRANULOCYTES-RELATIVE 1 % 0-1 PERCENT (BEAKER) (test code = 2801) SARS-COV2/RT-PCR ([facility])2021-09-03 16:03:43 Test Item Value Reference Range Interpretation Comments SARS-COV2/RT-PCR (test Negative Not Detected, Negative, code = 8983947) See external report for linked test SARS-COV-2 PERFORMING LAB [facility] (test code = 0522827) Negative result for this test determines that SARS-CoV-2 RNA was not present in the specimen above the Limit of Detection (LOD). However, Negative results do not preclude SARS-CoV-2 infection and should not be used as the sole basis for treatment or patient management decisions. Negative results must be combined with clinical observations, patient history, and epidemiological information. A false negative result may occur if a specimen is improperly collected, transported or handled. A false negative result should be considered if patient's recent exposures or clinical presentation indicate that COVID-19 (SARS-CoV-2) is likely and diagnostic tests for other causes of illness are negative. Re-testing should be considered in cases of suspected false negatives.The limit of detection for this assay is 800 copies/mL.This SARS CoV-2 test is a real-time RT-PCR test intended for the qualitative detection of nucleic acid from SARS-CoV-2 in a nasopharyngeal swab specimen collected from individuals suspected of COVID-19 by their healthcare provider.This test has not been Food and Drug Administration (FDA) cleared or approved. This is a modified version of an approved Emergency Use Authorization (EUA) and is in the process of review by the FDA. Once authorized by the FDA, the issued EUA will be effective until the declaration that circumstances exist justifying the authorization of the emergency use of in vitro diagnostic tests for detection and/or diagnosis of COVID-19 is terminated under Section 564(b)(2) of the Act or the EUA is revoked under Section 564(g) of the Act.Fact Sheet for Healthcare Pro viders:https://www.Moz/sites/default/files/product/documents/Fact_Sheet_H F_Mivnsjnrs_Cmtn_EVJO-NdV-5.pdfFact Sheet for Healthcare Patients:https://www.Moz/sites/default/files/product/docum ents/Tsye_Ndysi_Aszzdolt_Luuo_ZLDH-PdI-6.pdfPerforming Laboratory:[facility], [place] [address]GRQGS METABOLIC PANEL 2021-09-02 04:27:05 Test Item Value Reference Range Interpretation Comments SODIUM (BEAKER) 139 meq/L 136-145 (test code = 381) POTASSIUM (BEAKER) 3.7 meq/L 3.5-5.1 (test code = 379) CHLORIDE (BEAKER) 104 meq/L 98-107 (test code = 382) CO2 (BEAKER) (test 24 meq/L 22-29 code = 355) BLOOD UREA NITROGEN 31 mg/dL 7-21 H (BEAKER) (test code = 354) CREATININE (BEAKER) 4.99 mg/dL 0.57-1.25 H (test code = 358) GLUCOSE RANDOM 66 mg/dL 70-105 L (BEAKER) (test code = 652) CALCIUM (BEAKER) 8.3 mg/dL 8.4-10.2 L (test code = 697) EGFR (BEAKER) (test 11 mL/min/1.73 ESTIMA SALLY GFR IS code = 1092) sq m NOT ACCURATE CREATININE CLEARANCE IN PREDICTING GLOMERULAR FILTRATION RATE . ESTIMATED GFR I S NOT APPLICABLE FOR DIALYSIS PATIEN TS. Air Brush Operator ID - BANDAR [id number] 04:23:13 Test Item Value Reference Range Interpretation Comments MAGNESIUM (BEAKER) (test code = 2.2 mg/dL 1.6-2.6 627) Air Brush Operator ID - BANDAR [id number] 04:23:13 Test Item Value Reference Range Interpretation Comments PHOSPHORUS (BEAKER) (test code = 3.9 mg/dL 2.3-4.7 604) Air Brush Operator ID - BANDAR MCBC W/PLT COUNT & AUTO [id number] 04:13:07 Test Item Value Reference Range Interpretation Comments WHITE BLOOD CELL COUNT (BEAKER) 7.2 K/ L 3.5-10.5 (test code = 775) RED BLOOD CELL COUNT (BEAKER) 2.72 M/ L 3.93-5.22 L (test code = 761) HEMOGLOBIN (BEAKER) (test code = 8.5 GM/DL 11.2-15.7 L 410) HEMATOCRIT (BEAKER) (test code = 26.1 % 34.1-44.9 L 411) MEAN CORPUSCULAR VOLUME (BEAKER) 96.0 fL 79.4-94.8 H (test code = 753) MEAN CORPUSCULAR HEMOGLOBIN 31.3 pg 25.6-32.2 (BEAKER) (test code = 751) MEAN CORPUSCULAR HEMOGLOBIN CONC 32.6 GM/DL 32.2-35.5 (BEAKER) (test code = 752) RED CELL DISTRIBUTION WIDTH 24.7 % 11.7-14.4 H (BEAKER) (test code = 412) PLATELET COUNT (BEAKER) (test 252 K/CU MM 150-450 code = 756) MEAN PLATELET VOLUME (BEAKER) 10.4 fL 9.4-12.3 (test code = 754) NUCLEATED RED BLOOD CELLS 0 /100 WBC 0-0 (BEAKER) (test code = 413) NEUTROPHILS RELATIVE PERCENT 62 % (BEAKER) (test code = 429) LYMPHOCYTES RELATIVE PERCENT 21 % (BEAKER) (test code = 430) MONOCYTES RELATIVE PERCENT 13 % (BEAKER) (test code = 431) EOSINOPHILS RELATIVE PERCENT 3 % (BEAKER) (test code = 432) BASOPHILS RELATIVE PERCENT 1 % (BEAKER) (test code = 437) NEUTROPHILS ABSOLUTE COUNT 4.45 K/ L 1.56-6.13 (BEAKER) (test code = 670) LYMPHOCYTES ABSOLUTE COUNT 1.50 K/ L 1.18-3.74 (BEAKER) (test code = 414) MONOCYTES ABSOLUTE COUNT (BEAKER) 0.90 K/ L 0.24-0.36 H (test code = 415) EOSINOPHILS ABSOLUTE COUNT 0.19 K/ L 0.04-0.36 (BEAKER) (test code = 416) BASOPHILS ABSOLUTE COUNT (BEAKER) 0.04 K/ L 0.01-0.08 (test code = 417) IMMATURE GRANULOCYTES-RELATIVE 2 % 0-1 H PERCENT (BEAKER) (test code = 2801) Paraneoplastic Panel, [id number] 09:50:29 Test Item Value Reference Range Interpretation Comments PARANEOPLASTIC ANTIBODY See scanned report (test code = 95725934) CECELIA (test code = CECELIA) See scanned report [facility] CampusPARANEOPLASTIC AB EVAL W/ REFLEX TITER & LB, CSF 2021-09-01 09:50:29 Test Item Value Reference Range Interpretation Comments PARANEOPLASTIC ANTIBODY See scanned report (test code = 39189975) See scanned reportPOCT-GLUCOSE [id number] 16:50:16 Test Item Value Reference Range Interpretation Comments POC-GLUCOSE METER 84 mg/dL 70-110 : TESTED A T [facility] 6720 (BEAKER) (test code = [employer] [facility], 1538) [address]: Air Brush Operator/Techni daniel ID = [id number] for THOMAS HARRISON POCT-GLUCOSE [id number] 12:37:05 Test Item Value Reference Range Interpretation Comments POC-GLUCOSE METER 109 mg/dL 70-110 : TESTED A T [facility] 6720 (BEAKER) (test code = [employer] [facility], 1538) [address]: Air Brush Operator/Techni daniel ID = [id number] for THOMAS WILLIAMSON VALPROIC ACID LEVEL, [id number] 12:00:18 Test Item Value Reference Range Interpretation Comments VALPROIC ACID TOTAL (BEAKER) (test 53 ug/mL 50-100 code = 924) Therapeutic range for some clinical conditions may be >100 ug/mLOperator ID - BANDAR MPOCT-GLUCOSE [id number] 06:08:37 Test Item Value Reference Range Interpretation Comments POC-GLUCOSE METER 82 mg/dL 70-110 : TESTED A T [facility] 6720 (BEAKER) (test code = [employer] [facility], 1538) [address]: Air Brush Operator/Techni daniel ID = [id number] for MARGARITO CAMPUZANO BASIC METABOLIC [id number] 03:48:13 Test Item Value Reference Range Interpretation Comments SODIUM (BEAKER) 137 meq/L 136-145 (test code = 381) POTASSIUM (BEAKER) 3.7 meq/L 3.5-5.1 (test code = 379) CHLORIDE (BEAKER) 103 meq/L 98-107 (test code = 382) CO2 (BEAKER) (test 24 meq/L 22-29 code = 355) BLOOD UREA NITROGEN 26 mg/dL 7-21 H (BEAKER) (test code = 354) CREATININE (BEAKER) 4.59 mg/dL 0.57-1.25 H (test code = 358) GLUCOSE RANDOM 77 mg/dL 70-105 (BEAKER) (test code = 652) CALCIUM (BEAKER) 8.6 mg/dL 8.4-10.2 (test code = 697) EGFR (BEAKER) (test 12 mL/min/1.73 ESTIMA SALLY GFR IS code = 1092) sq m NOT ACCURATE CREATININE CLEARANCE IN PREDICTING GLOMERULAR FILTRATION RATE . ESTIMATED GFR I S NOT APPLICABLE FOR DIALYSIS PATIEN TS. Air Brush Operator ID - BANDAR [id number] 03:29:08 Test Item Value Reference Range Interpretation Comments MAGNESIUM (BEAKER) (test code = 2.2 mg/dL 1.6-2.6 627) Air Brush Operator ID - BANDAR [id number] 03:29:08 Test Item Value Reference Range Interpretation Comments PHOSPHORUS (BEAKER) (test code = 2.9 mg/dL 2.3-4.7 604) Air Brush Operator ID - BANDAR [id number] 03:18:24 Test Item Value Reference Range Interpretation Comments PARTIAL THROMBOPLASTIN TIME 63.2 seconds 22.5-36.0 H (BEAKER) (test code = 760) CBC W/PLT COUNT & AUTO [id number] 03:07:32 Test Item Value Reference Range Interpretation Comments WHITE BLOOD CELL COUNT (BEAKER) 7.3 K/ L 3.5-10.5 (test code = 775) RED BLOOD CELL COUNT (BEAKER) 2.88 M/ L 3.93-5.22 L (test code = 761) HEMOGLOBIN (BEAKER) (test code = 8.8 GM/DL 11.2-15.7 L 410) HEMATOCRIT (BEAKER) (test code = 27.8 % 34.1-44.9 L 411) MEAN CORPUSCULAR VOLUME (BEAKER) 96.5 fL 79.4-94.8 H (test code = 753) MEAN CORPUSCULAR HEMOGLOBIN 30.6 pg 25.6-32.2 (BEAKER) (test code = 751) MEAN CORPUSCULAR HEMOGLOBIN CONC 31.7 GM/DL 32.2-35.5 L (BEAKER) (test code = 752) RED CELL DISTRIBUTION WIDTH 24.3 % 11.7-14.4 H (BEAKER) (test code = 412) PLATELET COUNT (BEAKER) (test 230 K/CU MM 150-450 code = 756) MEAN PLATELET VOLUME (BEAKER) 10.4 fL 9.4-12.3 (test code = 754) NUCLEATED RED BLOOD CELLS 0 /100 WBC 0-0 (BEAKER) (test code = 413) NEUTROPHILS RELATIVE PERCENT 63 % (BEAKER) (test code = 429) LYMPHOCYTES RELATIVE PERCENT 19 % (BEAKER) (test code = 430) MONOCYTES RELATIVE PERCENT 12 % (BEAKER) (test code = 431) EOSINOPHILS RELATIVE PERCENT 4 % (BEAKER) (test code = 432) BASOPHILS RELATIVE PERCENT 0 % (BEAKER) (test code = 437) NEUTROPHILS ABSOLUTE COUNT 4.61 K/ L 1.56-6.13 (BEAKER) (test code = 670) LYMPHOCYTES ABSOLUTE COUNT 1.40 K/ L 1.18-3.74 (BEAKER) (test code = 414) MONOCYTES ABSOLUTE COUNT (BEAKER) 0.84 K/ L 0.24-0.36 H (test code = 415) EOSINOPHILS ABSOLUTE COUNT 0.30 K/ L 0.04-0.36 (BEAKER) (test code = 416) BASOPHILS ABSOLUTE COUNT (BEAKER) 0.01 K/ L 0.01-0.08 (test code = 417) IMMATURE GRANULOCYTES-RELATIVE 2 % 0-1 H PERCENT (BEAKER) (test code = 2801) POCT-GLUCOSE [id number] 23:42:07 Test Item Value Reference Range Interpretation Comments POC-GLUCOSE METER 81 mg/dL 70-110 : TESTED A T [facility] 6720 (BEAKER) (test code = ANIL MARTINE[place], 1538) [address]: Air Brush Operator/Techni daniel ID = [id number] for MARGARITO CAMPUZANO POCT-GLUCOSE [id number] 18:26:13 Test Item Value Reference Range Interpretation Comments POC-GLUCOSE METER 87 mg/dL 70-110 : TESTED A T [facility] 6720 (BEAKER) (test code = ANIL Brown [facility], 1538) [address]: Air Brush Operator/Techni daniel ID = [id number] for KWABENA MENDOZA RAD, CHEST, 1 VIEW, NON [id number] 12:12:00Reason for exam:->Mechanical VentilationShould this be performed at the bedside?->Yes [facility] [place] : 1965 Sex: FFINAL REPORT RAD, CHEST, 1 VIEW, NON DEPT INDICATION: Mechanical VentilationCOMPARISON: Prior day's exam TECHNIQUE: Portable frontal view of the chest. FINDINGS: Support Lines and Devices: The left PICC tip now overlies the right atrium. Otherwise, the life support lines and tubes appear unchanged. Lungs and pleura: Unchanged airspace and pleural opacities. No pneumothorax gus ntified. Heart and mediastinum: Stable contours. Stable surgical changes. Additional findings: Chronic right proximal humeral fracture. Mild spondylosis and facet arthropathy are present within the spine. IMPRESSION: 1.No significant change from prior exam.2.Low lung volumes with perivascular crowding. Signed: Fabian Wild MDReport Verified Date/Time: 08/30/2021 12:12:03 Reading Location: [facility] Radiology Reading Room POCT-GLUCOSE [id number] 11:48:25 Test Item Value Reference Range Interpretation Comments POC-GLUCOSE METER 83 mg/dL 70-110 : Notified RN/MD: TESTED (CARLY) (test code = AT [facility] 67[address] [facility] 1538) [place], [address]: Air Brush Operator/Techni daniel ID = [id number] for KWABENA MENDOZA POCT-GLUCOSE [id number] 06:02:06 Test Item Value Reference Range Interpretation Comments POC-GLUCOSE METER 83 mg/dL 70-110 : TESTED A T [facility] 6720 (BEAKER) (test code = ANIL Brown [place], 1538) [address]: Air Brush Operator/Techni daniel ID = [id number] for MARGARITO CAMPUZANO BASIC METABOLIC [id number] 05:17:36 Test Item Value Reference Range Interpretation Comments SODIUM (BEAKER) 136 meq/L 136-145 (test code = 381) POTASSIUM (BEAKER) 3.4 meq/L 3.5-5.1 L (test code = 379) CHLORIDE (BEAKER) 101 meq/L 98-107 (test code = 382) CO2 (BEAKER) (test 24 meq/L 22-29 code = 355) BLOOD UREA NITROGEN 19 mg/dL 7-21 (BEAKER) (test code = 354) CREATININE (BEAKER) 3.75 mg/dL 0.57-1.25 H (test code = 358) GLUCOSE RANDOM 83 mg/dL 70-105 (BEAKER) (test code = 652) CALCIUM (BEAKER) 8.1 mg/dL 8.4-10.2 L (test code = 697) EGFR (BEAKER) (test 15 mL/min/1.73 ESTIMA SALLY GFR IS code = 1092) sq m NOT ACCURATE CREATININE CLEARANCE IN PREDICTING GLOMERULAR FILTRATION RATE . ESTIMATED GFR I S NOT APPLICABLE FOR DIALYSIS PATIEN TS. Air Brush Operator ID - [id number] 05:16:29 Test Item Value Reference Range Interpretation Comments PHOSPHORUS (BEAKER) (test code = 2.2 mg/dL 2.3-4.7 L 604) Air Brush Operator ID - [id number] 05:16:28 Test Item Value Reference Range Interpretation Comments MAGNESIUM (BEAKER) (test code = 2.0 mg/dL 1.6-2.6 627) Air Brush Operator ID - DBPOCT-GLUCOSE [id number] 04:55:04 Test Item Value Reference Range Interpretation Comments POC-GLUCOSE METER 84 mg/dL 70-110 : TESTED A T [facility] 6720 (BEAKER) (test code = ANIL [place], 1538) [address]: Air Brush Operator/Techni daniel ID = [id number] for MARGARITO CAMPUZANO [id number] 04:04:18 Test Item Value Reference Range Interpretation Comments PARTIAL THROMBOPLASTIN TIME 81.3 seconds 22.5-36.0 H (BEAKER) (test code = 760) CBC W/PLT COUNT & AUTO [id number] 03:53:12 Test Item Value Reference Range Interpretation Comments WHITE BLOOD CELL COUNT (BEAKER) 8.6 K/ L 3.5-10.5 (test code = 775) RED BLOOD CELL COUNT (BEAKER) 2.98 M/ L 3.93-5.22 L (test code = 761) HEMOGLOBIN (BEAKER) (test code = 9.0 GM/DL 11.2-15.7 L 410) HEMATOCRIT (BEAKER) (test code = 28.9 % 34.1-44.9 L 411) MEAN CORPUSCULAR VOLUME (BEAKER) 97.0 fL 79.4-94.8 H (test code = 753) MEAN CORPUSCULAR HEMOGLOBIN 30.2 pg 25.6-32.2 (BEAKER) (test code = 751) MEAN CORPUSCULAR HEMOGLOBIN CONC 31.1 GM/DL 32.2-35.5 L (BEAKER) (test code = 752) RED CELL DISTRIBUTION WIDTH 24.3 % 11.7-14.4 H (BEAKER) (test code = 412) PLATELET COUNT (BEAKER) (test 221 K/CU MM 150-450 code = 756) MEAN PLATELET VOLUME (BEAKER) 11.0 fL 9.4-12.3 (test code = 754) NUCLEATED RED BLOOD CELLS 0 /100 WBC 0-0 (BEAKER) (test code = 413) NEUTROPHILS RELATIVE PERCENT 68 % (BEAKER) (test code = 429) LYMPHOCYTES RELATIVE PERCENT 14 % (BEAKER) (test code = 430) MONOCYTES RELATIVE PERCENT 11 % (BEAKER) (test code = 431) EOSINOPHILS RELATIVE PERCENT 6 % (BEAKER) (test code = 432) BASOPHILS RELATIVE PERCENT 0 % (BEAKER) (test code = 437) NEUTROPHILS ABSOLUTE COUNT 5.86 K/ L 1.56-6.13 (BEAKER) (test code = 670) LYMPHOCYTES ABSOLUTE COUNT 1.21 K/ L 1.18-3.74 (BEAKER) (test code = 414) MONOCYTES ABSOLUTE COUNT (BEAKER) 0.93 K/ L 0.24-0.36 H (test code = 415) EOSINOPHILS ABSOLUTE COUNT 0.50 K/ L 0.04-0.36 H (BEAKER) (test code = 416) BASOPHILS ABSOLUTE COUNT (BEAKER) 0.02 K/ L 0.01-0.08 (test code = 417) IMMATURE GRANULOCYTES-RELATIVE 1 % 0-1 PERCENT (BEAKER) (test code = 2801) POCT-GLUCOSE [id number] 23:51:43 Test Item Value Reference Range Interpretation Comments POC-GLUCOSE METER 72 mg/dL 70-110 : TESTED A T [facility] 6720 (BEAKER) (test code = [employer] [facility] [facility] Kevin [facility], 1538) [address]: Air Brush Operator/Techni daniel ID = [id number] for MARGARITO CAMPUZANO [id number] 22:34:43 Test Item Value Reference Range Interpretation Comments PARTIAL THROMBOPLASTIN TIME 93.8 seconds 22.5-36.0 H (BEAKER) (test code = 760) POCT-GLUCOSE [id number] 18:22:56 Test Item Value Reference Range Interpretation Comments POC-GLUCOSE METER 90 mg/dL 70-110 : TESTED A T [facility] 6720 (BEAKER) (test code = [facility] Kevin [facility], 1538) [address]: Air Brush Operator/Techni daniel ID = [id number] for KWABENA MENDOZA [id number] 15:34:45 Test Item Value Reference Range Interpretation Comments PARTIAL THROMBOPLASTIN TIME 116.4 seconds 22.5-36.0 H (BEAKER) (test code = 760) RAD, ABDOMEN/KUB, 1 VIEW [id number] 13:45:00Reason for exam:->NG placement [facility] : 1965 Sex: FFINAL REPORT RAD, ABDOMEN/KUB, 1 VIEW AP CLINICAL INDICATION: NG placement COMPARISON: None TECHNIQUE: Frontal radiograph(s) of the abdomen. FINDINGS: The bowel gas pattern is nonobstructive. The feeding tube tip overlies the gastroduodenal junction. Evaluation for free air is limited by portable supine technique. Within these limitations, no free air is identified. Nonspecific catheter overlies the upper pelvis. IMPRESSION: The feeding tube tip overlies the gastroduodenal junction. Signed: Fabian Wildgriffin hospital Verified Date/Time: 08/29/2021 13:45:52 Reading Location: [facility] Radiology Reading Room , CHEST, 1 VIEW, NON [id number] 12:35:00Reason for exam:->Mechanical VentilationShould this be performed at the bedside?->Yes [facility]AY[facility] MAKI CORONADO : 1965 Sex: FFINAL REPORT RAD, CHEST, 1 VIEW, NON DEPT INDICATION: Mechanical VentilationCOMPARISON: Prior day's exam TECHNIQUE: Portable frontal view of the chest. FINDINGS: Support Lines and Devices: A left PICC tip now overlies the superior vena cava. Otherwise, the life support lines and tubes appear unchanged. Lungs and pleura: Unchanged airspace and pleural opacities. No pneumothorax identified. Heart and mediastinum: Stable contours. Stable surgical changes. Additional findings: Chronic right proximal humeral fracture. IMPRESSION: No focal consolidation. Signed: Fabian Wild Verified Date/Time: 08/29/2021 12:35:35 Reading Location: [facility] Radiology Reading Room -GLUCOSE [id number] 12:00:31 Test Item Value Reference Range Interpretation Comments POC-GLUCOSE METER 99 mg/dL 70-110 : [facility] (test code = [place], 1538) [address]: Air Brush Operator/Techni daniel ID = [id number] for KWABENA MENDOZA [id number] 07:13:11 Test Item Value Reference Range Interpretation Comments PARTIAL THROMBOPLASTIN TIME 60.8 seconds 22.5-36.0 H (BEAKER) (test code = 760) COMPREHENSIVE METABOLIC [id number] 05:57:39 Test Item Value Reference Range Interpretation Comments TOTAL PROTEIN 4.9 gm/dL 6.0-8.3 L (BEAKER) (test code = 770) ALBUMIN (BEAKER) 2.2 g/dL 3.5-5.0 L (test code = 1145) ALKALINE PHOSPHATASE 127 U/L 40-150 (BEAKER) (test code = 346) BILIRUBIN TOTAL 0.2 mg/dL 0.2-1.2 (BEAKER) (test code = 377) SODIUM (BEAKER) (test 138 meq/L 136-145 code = 381) POTASSIUM (BEAKER) 3.6 meq/L 3.5-5.1 (test code = 379) CHLORIDE (BEAKER) 104 meq/L 98-107 (test code = 382) CO2 (BEAKER) (test 22 meq/L 22-29 code = 355) BLOOD UREA NITROGEN 32 mg/dL 7-21 H (BEAKER) (test code = 354) CREATININE (BEAKER) 5.36 mg/dL 0.57-1.25 H (test code = 358) GLUCOSE RANDOM 87 mg/dL 70-105 (BEAKER) (test code = 652) CALCIUM (BEAKER) 8.3 mg/dL 8.4-10.2 L (test code = 697) AST (SGOT) (BEAKER) 14 U/L 5-34 (test code = 353) ALT (SGPT) (BEAKER) < U/L 6-55 L (test code = 347) EGFR (BEAKER) (test 10 mL/min/1.73 ESTIMA SALLY GFR IS code = 1092) sq m NOT ACCURATE CREATININE CLEARANCE IN PREDICTING GLOMERULAR FILTRATION RATE . ESTIMATED GFR I S NOT APPLICABLE FOR DIALYSIS PATIEN TS. Air Brush Operator ID - [id number] 05:51:57 Test Item Value Reference Range Interpretation Comments MAGNESIUM (BEAKER) (test code = 2.3 mg/dL 1.6-2.6 627) Air Brush Operator ID - [id number] 05:51:57 Test Item Value Reference Range Interpretation Comments PHOSPHORUS (BEAKER) (test code = 2.4 mg/dL 2.3-4.7 604) Air Brush Operator ID - DBPOCT-GLUCOSE [id number] 05:44:30 Test Item Value Reference Range Interpretation Comments POC-GLUCOSE METER 87 mg/dL 70-110 : TESTED A T [facility] 6720 (BEAKER) (test code = ANIL Brown [facility], 1538) [address]: Air Brush Operator/Techni daniel ID = [id number] for Gómez Choudhary CBC W/PLT COUNT & AUTO [id number] 04:08:39 Test Item Value Reference Range Interpretation Comments WHITE BLOOD CELL COUNT (BEAKER) 9.0 K/ L 3.5-10.5 (test code = 775) RED BLOOD CELL COUNT (BEAKER) 2.89 M/ L 3.93-5.22 L (test code = 761) HEMOGLOBIN (BEAKER) (test code = 8.8 GM/DL 11.2-15.7 L 410) HEMATOCRIT (BEAKER) (test code = 27.7 % 34.1-44.9 L 411) MEAN CORPUSCULAR VOLUME (BEAKER) 95.8 fL 79.4-94.8 H (test code = 753) MEAN CORPUSCULAR HEMOGLOBIN 30.4 pg 25.6-32.2 (BEAKER) (test code = 751) MEAN CORPUSCULAR HEMOGLOBIN CONC 31.8 GM/DL 32.2-35.5 L (BEAKER) (test code = 752) RED CELL DISTRIBUTION WIDTH 23.1 % 11.7-14.4 H (BEAKER) (test code = 412) PLATELET COUNT (BEAKER) (test 244 K/CU MM 150-450 code = 756) MEAN PLATELET VOLUME (BEAKER) 11.4 fL 9.4-12.3 (test code = 754) NUCLEATED RED BLOOD CELLS 0 /100 WBC 0-0 (BEAKER) (test code = 413) NEUTROPHILS RELATIVE PERCENT 72 % (BEAKER) (test code = 429) LYMPHOCYTES RELATIVE PERCENT 11 % (BEAKER) (test code = 430) MONOCYTES RELATIVE PERCENT 10 % (BEAKER) (test code = 431) EOSINOPHILS RELATIVE PERCENT 6 % (BEAKER) (test code = 432) BASOPHILS RELATIVE PERCENT 0 % (BEAKER) (test code = 437) NEUTROPHILS ABSOLUTE COUNT 6.44 K/ L 1.56-6.13 H (BEAKER) (test code = 670) LYMPHOCYTES ABSOLUTE COUNT 0.96 K/ L 1.18-3.74 L (BEAKER) (test code = 414) MONOCYTES ABSOLUTE COUNT (BEAKER) 0.91 K/ L 0.24-0.36 H (test code = 415) EOSINOPHILS ABSOLUTE COUNT 0.57 K/ L 0.04-0.36 H (BEAKER) (test code = 416) BASOPHILS ABSOLUTE COUNT (BEAKER) 0.01 K/ L 0.01-0.08 (test code = 417) IMMATURE GRANULOCYTES-RELATIVE 1 % 0-1 PERCENT (BEAKER) (test code = 2801) Blood gas, [id number] 04:05:56 Test Item Value Reference Range Interpretation Comments pH, Arterial (test code 7.40 7.35-7.45 = 2744-1) pCO2, Arterial (test 40 See_Comment [Autom ated code = 2018-) message] The system which generated this result transmitted reference range : 35 - 45 mm Hg. The reference range was not used to interpret this result as normal/abnormal . pO2, Arterial (test 180 See_Comment H [Automa sally code = 2703-7) message] The system which generated this result transmitted reference range : 80 - 90 mm Hg. The reference range was not used to interpret this result as normal/abnormal . O2 Sat, Arterial (test 99.2 % 96.0-97.0 H code = 2708-6) HCO3, Arterial (test 24 mmol/L 21-29 code = 1960-4) Base Excess, Arterial -0.8 mmol/L -2.0-3.0 (test code = 1925-7) Patient Temperature 36.6 (test code = 8310-5) FIO2 (test code = 1819) 21 Lab Interpretation Abnormal (test code = 90568-2) [facility], [id number] 04:05:56 Test Item Value Reference Range Interpretation Comments PH ARTERIAL (BEAKER) (test code = 7.40 7.35-7.45 383) PCO2 ARTERIAL (BEAKER) (test code 40 mm Hg 35-45 = 384) PO2 ARTERIAL (BEAKER) (test code 180 mm Hg 80-90 H = 385) O2 SATURATION ARTERIAL (BEAKER) 99.2 % 96.0-97.0 H (test code = 386) HCO3 ARTERIAL (BEAKER) (test code 24 mmol/L -29 = 388) BASE EXCESS ARTERIAL (BEAKER) -0.8 mmol/L -2.0-3.0 (test code = 387) PATIENT TEMPERATURE (BEAKER) 36.6 (test code = 1818) FIO2 (BEAKER) (test code = 1819) 21.0 [id number] 00:56:24 Test Item Value Reference Range Interpretation Comments PARTIAL THROMBOPLASTIN TIME 71.9 seconds 22.5-36.0 H (BEAKER) (test code = 760) POCT-GLUCOSE [id number] 00:41:07 Test Item Value Reference Range Interpretation Comments POC-GLUCOSE METER 91 mg/dL 70-110 : TESTED A T [facility] 67[facility] (BEAKER) (test code = [place], 1538) [address]: Air Brush Operator/Techni daniel ID = [id number] for Gómez Choudhary [id number] 22:35:43 Test Item Value Reference Range Interpretation Comments PARTIAL THROMBOPLASTIN TIME 126.1 seconds 22.5-36.0 H (BEAKER) (test code = 760) POCT-GLUCOSE [id number] 18:20:04 Test Item Value Reference Range Interpretation Comments POC-GLUCOSE METER 95 mg/dL 70-110 : TESTED A T [facility] (BEAKER) (test code = [facility], 1538) 10115: Air Brush Operator/Techni daniel ID = [id number] for Estelle Riley [id number] 13:35:16 Test Item Value Reference Range Interpretation Comments PARTIAL THROMBOPLASTIN TIME 96.0 seconds 22.5-36.0 H (BEAKER) (test code = 760) POCT-GLUCOSE [id number] 12:13:53 Test Item Value Reference Range Interpretation Comments POC-GLUCOSE METER 107 mg/dL 70-110 : TESTED A T [facility] 6720 (BEAKER) (test code = [facility], 1538) 54330: Air Brush Operator/Techni daniel ID = [id number] for Mary Arango POCT-GLUCOSE [id number] 07:28:56 Test Item Value Reference Range Interpretation Comments POC-GLUCOSE METER 120 mg/dL 70-110 H : TESTED A T [facility] 6720 (BEAKER) (test code = [facility], 1538) [id number]: Air Brush Operator/Techni daniel ID = [id number] for MIGUEL VILLANUEVA BLOOD GAS, [id number] 05:13:53 Test Item Value Reference Range Interpretation Comments PH VENOUS (BEAKER) (test code = 7.44 7.32-7.42 H 701) PCO2 VENOUS (BEAKER) (test code = 40 mm Hg 41-51 L 755) PO2 VENOUS (BEAKER) (test code = 53 mm Hg 25-40 H 702) O2 SATURATION VENOUS (BEAKER) 88.9 % 40.0-70.0 H (test code = 703) HCO3 VENOUS (BEAKER) (test code = 27 mmol/L 21-29 705) BASE EXCESS VENOUS (BEAKER) (test 2.6 mmol/L -2.0-3.0 code = 704) PATIENT TEMPERATURE (BEAKER) (test 37.0 code = 1818) FIO2 (BEAKER) (test code = 1819) 21.0 BASIC METABOLIC [id number] 04:56:46 Test Item Value Reference Range Interpretation Comments SODIUM (BEAKER) 140 meq/L 136-145 (test code = 381) POTASSIUM (BEAKER) 3.4 meq/L 3.5-5.1 L (test code = 379) CHLORIDE (BEAKER) 106 meq/L 98-107 (test code = 382) CO2 (BEAKER) (test 25 meq/L 22-29 code = 355) BLOOD UREA NITROGEN 24 mg/dL 7-21 H (BEAKER) (test code = 354) CREATININE (BEAKER) 4.33 mg/dL 0.57-1.25 H (test code = 358) GLUCOSE RANDOM 92 mg/dL 70-105 (BEAKER) (test code = 652) CALCIUM (BEAKER) 8.2 mg/dL 8.4-10.2 L (test code = 697) EGFR (BEAKER) (test 13 mL/min/1.73 ESTIMA SALLY GFR IS code = 1092) sq m NOT ACCURATE CREATININE CLEARANCE IN PREDICTING GLOMERULAR FILTRATION RATE . ESTIMATED GFR I S NOT APPLICABLE FOR DIALYSIS PATIEN TS. Air Brush Operator ID - [id number] 04:55:26 Test Item Value Reference Range Interpretation Comments MAGNESIUM (BEAKER) (test code = 2.1 mg/dL 1.6-2.6 627) Air Brush Operator ID - [id number] 04:55:26 Test Item Value Reference Range Interpretation Comments PHOSPHORUS (BEAKER) (test code = 1.7 mg/dL 2.3-4.7 L 604) Air Brush Operator ID - DBPT/[id number] 04:45:02 Test Item Value Reference Range Interpretation Comments PROTIME (BEAKER) (test 15.4 seconds 11.9-14.2 H code = 759) INR (BEAKER) (test 1.24 See_Comment [Automat ed code = 370) message] The sy stem which generated this result transmitted reference range : <=5.90. The reference range was not used to interpret this result as normal/abnormal . PARTIAL THROMBOPLASTIN 60.5 seconds 22.5-36.0 H TIME (BEAKER) (test code = 760) RECOMMENDED COUMADIN/WARFARIN INR THERAPY RANGESSTANDARD DOSE: 2.0 - 3.0 Includes: PROPHYLAXIS for venous thrombosis, systemic embolization; TREATMENT for venous thrombosis and/or pulmonary embolus.HIGH RISK: Target INR is 2.5-3.5 for patients with mechanical heart valves.RAD, CHEST, 1 VIEW, NON [id number] 04:45:00Reason for exam:->Mechanical VentilationShould this be performed at the bedside?->Yes [facility] 1965 Sex: FFINAL REPORT RAD, CHEST, 1 VIEW, NON DEPT INDICATION: Mechanical VentilationCOMPARISON: Prior day's exam FINDINGS: Portable frontal view of the chest. IMPRESSION: Support Lines: Stable. Lungs and pleura: No airspace consolidation or effusion. No pneumothorax. Heart and mediastinum: Stable contours. Additional findings: None. Signed: Daiana Rudd MDRep[facility] Verified Date/Time: 08/28/2021 04:45:57 CBC W/PLT COUNT & AUTO [id number] 04:33:07 Test Item Value Reference Range Interpretation Comments WHITE BLOOD CELL COUNT (BEAKER) 10.1 K/ L 3.5-10.5 (test code = 775) RED BLOOD CELL COUNT (BEAKER) 2.93 M/ L 3.93-5.22 L (test code = 761) HEMOGLOBIN (BEAKER) (test code = 8.8 GM/DL 11.2-15.7 L 410) HEMATOCRIT (BEAKER) (test code = 27.6 % 34.1-44.9 L 411) MEAN CORPUSCULAR VOLUME (BEAKER) 94.2 fL 79.4-94.8 (test code = 753) MEAN CORPUSCULAR HEMOGLOBIN 30.0 pg 25.6-32.2 (BEAKER) (test code = 751) MEAN CORPUSCULAR HEMOGLOBIN CONC 31.9 GM/DL 32.2-35.5 L (BEAKER) (test code = 752) RED CELL DISTRIBUTION WIDTH 22.5 % 11.7-14.4 H (BEAKER) (test code = 412) PLATELET COUNT (BEAKER) (test 246 K/CU MM 150-450 code = 756) MEAN PLATELET VOLUME (BEAKER) 11.4 fL 9.4-12.3 (test code = 754) NUCLEATED RED BLOOD CELLS 0 /100 WBC 0-0 (BEAKER) (test code = 413) NEUTROPHILS RELATIVE PERCENT 75 % (BEAKER) (test code = 429) LYMPHOCYTES RELATIVE PERCENT 10 % (BEAKER) (test code = 430) MONOCYTES RELATIVE PERCENT 8 % (BEAKER) (test code = 431) EOSINOPHILS RELATIVE PERCENT 6 % (BEAKER) (test code = 432) BASOPHILS RELATIVE PERCENT 0 % (BEAKER) (test code = 437) NEUTROPHILS ABSOLUTE COUNT 7.59 K/ L 1.56-6.13 H (BEAKER) (test code = 670) LYMPHOCYTES ABSOLUTE COUNT 1.01 K/ L 1.18-3.74 L (BEAKER) (test code = 414) MONOCYTES ABSOLUTE COUNT (BEAKER) 0.83 K/ L 0.24-0.36 H (test code = 415) EOSINOPHILS ABSOLUTE COUNT 0.56 K/ L 0.04-0.36 H (BEAKER) (test code = 416) BASOPHILS ABSOLUTE COUNT (BEAKER) 0.01 K/ L 0.01-0.08 (test code = 417) IMMATURE GRANULOCYTES-RELATIVE 1 % 0-1 PERCENT (BEAKER) (test code = 2801) POCT-GLUCOSE [id number] 23:58:48 Test Item Value Reference Range Interpretation Comments POC-GLUCOSE METER 112 mg/dL 70-110 H : [facility] (test code = [place], 1538) [address]: Air Brush Operator/Techni daniel ID = [id number] for Jamel Wallis PT/[id number] 21:44:25 Test Item Value Reference Range Interpretation Comments PROTIME (BEAKER) (test 14.0 seconds 11.9-14.2 code = 759) INR (BEAKER) (test 1.10 See_Comment [Automat ed code = 370) message] The sy stem which generated this result transmitted reference range : <=5.90. The reference range was not used to interpret this result as normal/abnormal . PARTIAL THROMBOPLASTIN 52.3 seconds 22.5-36.0 H TIME (CARLY) (test code = 760) RECOMMENDED COUMADIN/WARFARIN INR THERAPY RANGESSTANDARD DOSE: 2.0 - 3.0 Includes: PROPHYLAXIS for venous thrombosis, systemic embolization; TREATMENT for venous thrombosis and/or pulmonary embolus.HIGH RISK: Target INR is 2.5-3.5 for patients with mechanical heart valves.VALPROIC ACID LEVEL, [id number] 20:58:58 Test Item Value Reference Range Interpretation Comments VALPROIC ACID TOTAL ([employer]) (test 61 ug/mL 50-100 code = 924) Therapeutic range for some clinical conditions may be >100 ug/mLOperator ID - DBPOCT-GLUCOSE [id number] 17:42:41 Test Item Value Reference Range Interpretation Comments POC-GLUCOSE METER 94 mg/dL 70-110 : TESTED A T [facility] 6720 ([employer]) (test code = [facility], 153) [address]: Air Brush Operator/Techni daniel ID = [id number] for Thi Julian [id number] 15:29:15 Test Item Value Reference Range Interpretation Comments PARTIAL THROMBOPLASTIN TIME 74.7 seconds 22.5-36.0 H (StrangeLogicPARVIZ) (test code = 760) POCT-GLUCOSE [id number] 12:32:00 Test Item Value Reference Range Interpretation Comments POC-GLUCOSE METER 95 mg/dL 70-110 : TESTED A T [facility] 6720 ([employer]) (test code = [facility], 1538) [address]: Air Brush Operator/Techni daniel ID = [id number] for Simm ons, Nguyen POCT-GLUCOSE [id number] 10:00:37 Test Item Value Reference Range Interpretation Comments POC-GLUCOSE METER 124 mg/dL 70-110 H : TESTED A T [facility] 6720 ([employer]) (test code = [facility], 153) [address]: Air Brush Operator/Techni daniel ID = [id number] for Estelle Knowles RAD, CHEST, 1 VIEW, NON [id number] 08:06:00Reason for exam:->Mechanical VentilationShould this be performed at the bedside?->Yes [facility] : 1965 Sex: FFINAL REPORT RAD, CHEST, 1 VIEW, NON DEPT INDICATION: Mechanical VentilationCOMPARISON: Prior day's exam FINDINGS: Portable frontal view of the chest. IMPRESSION: Support Lines: Feeding tube descends below the diaphragm. Dialysis catheter tip overlies the right atrium. PICC tip overlies the atriocaval junction. Lungs and pleura: Mild diffuse bilateral interstitial thickening. No significant pneumothorax. Heart and mediastinum: Stable contours. Stable surgical changes. Additional findings: None. Signed: Ruth Benítez Verified Date/Time: 08/27/2021 08:06:25 BASIC METABOLIC [id number] 07:55:43 Test Item Value Reference Range Interpretation Comments SODIUM (BEAKER) 142 meq/L 136-145 (test code = 381) POTASSIUM (BEAKER) 3.9 meq/L 3.5-5.1 Specimen slightly (test code = 379) hemolyzed CHLORIDE (BEAKER) 108 meq/L 98-107 H (test code = 382) CO2 (BEAKER) (test 24 meq/L 22-29 code = 355) BLOOD UREA NITROGEN 15 mg/dL 7-21 (BEAKER) (test code = 354) CREATININE (BEAKER) 3.14 mg/dL 0.57-1.25 H Specimen slightly (test code = 358) hemolyzed GLUCOSE RANDOM 72 mg/dL 70-105 (BEAKER) (test code = 652) CALCIUM (BEAKER) 8.2 mg/dL 8.4-10.2 L (test code = 697) EGFR (BEAKER) (test 18 mL/min/1.73 ESTIMA SALLY GFR IS code = 1092) sq m NOT ACCURATE CREATININE CLEARANCE IN PREDICTING GLOMERULAR FILTRATION RATE . ESTIMATED GFR I S NOT APPLICABLE FOR DIALYSIS PATIEN TS. Air Brush Operator ID - BANDAR [id number] 07:50:28 Test Item Value Reference Range Interpretation Comments PHOSPHORUS (BEAKER) 1.7 mg/dL 2.3-4.7 L Specimen slightly (test code = 604) hemolyzed Air Brush Operator ID - BANDAR [id number] 07:50:27 Test Item Value Reference Range Interpretation Comments MAGNESIUM (BEAKER) 2.0 mg/dL 1.6-2.6 Specimen slightly (test code = 627) hemolyzed Air Brush Operator ID - BANDAR MPT/[id number] 07:27:38 Test Item Value Reference Range Interpretation Comments PROTIME (BEAKER) (test 15.4 seconds 11.9-14.2 H code = 759) INR (BEAKER) (test 1.24 See_Comment [Automat ed code = 370) message] The system which generated this result transmit sally reference range : <=5.90. The reference range was not used to interpret this result as normal/abnormal . PARTIAL THROMBOPLASTIN 103.5 seconds 22.5-36.0 H TIME (BEAKER) (test code = 760) RECOMMENDED COUMADIN/WARFARIN INR THERAPY RANGESSTANDARD DOSE: 2.0 - 3.0 Includes: PROPHYLAXIS for venous thrombosis, systemic embolization; TREATMENT for venous thrombosis and/or pulmonary embolus.HIGH RISK: Target INR is 2.5-3.5 for patients with mechanical heart valves.BLOOD GAS, [id number] 07:25:05 Test Item Value Reference Range Interpretation Comments PH ARTERIAL (BEAKER) (test code = 7.48 7.35-7.45 H 383) PCO2 ARTERIAL (BEAKER) (test code 35 mm Hg 35-45 = 384) PO2 ARTERIAL (BEAKER) (test code = 175 mm Hg 80-90 H 385) O2 SATURATION ARTERIAL (BEAKER) 99.3 % 96.0-97.0 H (test code = 386) HCO3 ARTERIAL (BEAKER) (test code 26 mmol/L 21-29 = 388) BASE EXCESS ARTERIAL (BEAKER) 2.1 mmol/L -2.0-3.0 (test code = 387) PATIENT TEMPERATURE (BEAKER) (test 37.0 code = 1818) FIO2 (BEAKER) (test code = 1819) 21.0 CBC W/PLT COUNT & AUTO [id number] 07:17:29 Test Item Value Reference Range Interpretation Comments WHITE BLOOD CELL COUNT (BEAKER) 14.1 K/ L 3.5-10.5 H (test code = 775) RED BLOOD CELL COUNT (BEAKER) 2.95 M/ L 3.93-5.22 L (test code = 761) HEMOGLOBIN (BEAKER) (test code = 8.9 GM/DL 11.2-15.7 L 410) HEMATOCRIT (BEAKER) (test code = 27.6 % 34.1-44.9 L 411) MEAN CORPUSCULAR VOLUME (BEAKER) 93.6 fL 79.4-94.8 (test code = 753) MEAN CORPUSCULAR HEMOGLOBIN 30.2 pg 25.6-32.2 (BEAKER) (test code = 751) MEAN CORPUSCULAR HEMOGLOBIN CONC 32.2 GM/DL 32.2-35.5 (BEAKER) (test code = 752) RED CELL DISTRIBUTION WIDTH 22.0 % 11.7-14.4 H (BEAKER) (test code = 412) PLATELET COUNT (BEAKER) (test 266 K/CU MM 150-450 code = 756) MEAN PLATELET VOLUME (BEAKER) 11.1 fL 9.4-12.3 (test code = 754) NUCLEATED RED BLOOD CELLS 1 /100 WBC 0-0 H (BEAKER) (test code = 413) NEUTROPHILS RELATIVE PERCENT 78 % (BEAKER) (test code = 429) LYMPHOCYTES RELATIVE PERCENT 10 % (BEAKER) (test code = 430) MONOCYTES RELATIVE PERCENT 7 % (BEAKER) (test code = 431) EOSINOPHILS RELATIVE PERCENT 4 % (BEAKER) (test code = 432) BASOPHILS RELATIVE PERCENT 0 % (BEAKER) (test code = 437) NEUTROPHILS ABSOLUTE COUNT 10.91 K/ L 1.56-6.13 H (BEAKER) (test code = 670) LYMPHOCYTES ABSOLUTE COUNT 1.38 K/ L 1.18-3.74 (BEAKER) (test code = 414) MONOCYTES ABSOLUTE COUNT (BEAKER) 1.04 K/ L 0.24-0.36 H (test code = 415) EOSINOPHILS ABSOLUTE COUNT 0.56 K/ L 0.04-0.36 H (BEAKER) (test code = 416) BASOPHILS ABSOLUTE COUNT (BEAKER) 0.02 K/ L 0.01-0.08 (test code = 417) IMMATURE GRANULOCYTES-RELATIVE 1 % 0-1 PERCENT (AKER) (test code = 2801) POCT-GLUCOSE [id number] 07:13:25 Test Item Value Reference Range Interpretation Comments POC-GLUCOSE METER 63 mg/dL 70-110 L : [facility]) (test code = [facility], 1538) [address]: Air Brush Operator/Techni daniel ID = [id number] for MIGUEL VALENCIA POCT-GLUCOSE [id number] 03:43:12 Test Item Value Reference Range Interpretation Comments POC-GLUCOSE METER 117 mg/dL 70-110 H : [facility]) (test code = [facility], 1538) [address]: Air Brush Operator/Techni daniel ID = [id number] for MIGUEL VILLANUEVA Prepare [id number] 23:55:00 Test Item Value Reference Range Interpretation Comments CROSSMATCH (test code = 2264) COMPATIBLE Unit ABO (test code = O Pos 8342708) UNIT NUMBER (test code = [id number] 934-0) Status (test code = 8458529) [facility] Blood Bank Product (test code RED BLOOD CELLS = 2263) PRODUCT CODE (test code = W9478J21 933-2) [facility] [id number] 18:21:30 Test Item Value Reference Range Interpretation Comments POC-GLUCOSE METER 121 mg/dL 70-110 H : Notified RN/MD: (YONNYPARVIZ) (test code = TESTED AT [facility] 6720 1538) [facility], [address]: Air Brush Operator/Techni daniel ID = [id number] for LL OYD TIKEYA VALPROIC ACID LEVEL, [id number] 17:02:29 Test Item Value Reference Range Interpretation Comments VALPROIC ACID TOTAL (BEAKER) (test 38 ug/mL 50-100 L code = 924) Therapeutic range for some clinical conditions may be >100 ug/mLOperator ID - BSIgG Index (CSF + Blood)2021-08-26 13:15:35 Test Item Value Reference Range Interpretation Comments Synthesis Rate IgG, -2.3 See_Comment [Automa sally CSF (test code = message] Th e ) system which generated this result transmit sally reference range : -9.9 TO +3.3 mg /24 h. The referenc e range was not u sed to interpret is result as normal/abnormal . Igg Index,Csf (test 0.58 <0.66 code = 2912524) Albumin, CSF (test 5.1 mg/dL 8.0-42.0 L code = ) IgG, CSF (test code 1.2 mg/dL 0.8-7.7 = ) IMMUNOGLOBULIN G, 900 mg/dL 600-1640 SERUM (test code = 6430525) Albumin, Serum (test 2.2 g/dL 3.5-5.2 L The Ig G Synthesis code = 2109308) rate, CSF an d IgG index, CSF are two formulae forestimating t he amount of IgG produced in the central nervous system. Evidenc eof increased synthesis of Ig G provides suppor t for the diagnos is of multiplescleros is. CECELIA (test code = Performing Lab EZ CECELIA) [facility] [address] [place] [address] Shirlene Fernandes MD, PhD, GUNJAN Lab Interpretation Abnormal (test code = 33684-5) [facility]PO[facility]SE [id number] 13:11:52 Test Item Value Reference Range Interpretation Comments POC-GLUCOSE METER 131 mg/dL 70-110 H : TESTED A T [facility] 6720 (BEAKER) (test code = [place], 1538) [address]: Air Brush Operator/Techni daniel ID = [id number] for KWABENA MOORE [id number] 10:32:48 Test Item Value Reference Range Interpretation Comments PARTIAL THROMBOPLASTIN TIME 80.4 seconds 22.5-36.0 H (BEAKER) (test code = 760) RAD, CHEST, 1 VIEW, NON [id number] 08:24:00Reason for exam:->Mechanical VentilationShould this be performed at the bedside?->Yes [facility] : 1965 Sex: FFINAL REPORT RAD, CHEST, 1 VIEW, NON DEPT INDICATION: Mechanical VentilationCOMPARISON: Prior day's exam FINDINGS: Portable frontal view of the chest. IMPRESSION: Support Lines: ET tube has been removed. Feeding tube descends below the diaphragm. Dialysis catheter tip overliesthe right atrium. PICC tip overlies the atriocaval junction. Lungs and pleura: Mild diffuse bilateral interstitial thickening. No significant pneumothorax. Heart and mediastinum: Stable contours. Stable surgical changes. Additional findings: None. Signed: Ruth Benítez Verified Date/Time: 08/26/2021 08:24:59 Reading Location: [facility] Radiology Reading Room POCT-GLUCOSE [id number] 05:37:42 Test Item Value Reference Range Interpretation Comments POC-GLUCOSE METER 109 mg/dL 70-110 : TESTED A T [facility] 6720 (BEAKER) (test code [facility], = 1538) [address]: Air Brush Operator/Techni daniel ID = [id number] for DEVIN OLVERA BASIC METABOLIC [id number] 05:34:54 Test Item Value Reference Range Interpretation Comments SODIUM (BEAKER) 139 meq/L 136-145 (test code = 381) POTASSIUM (BEAKER) 3.4 meq/L 3.5-5.1 L (test code = 379) CHLORIDE (BEAKER) 105 meq/L 98-107 (test code = 382) CO2 (BEAKER) (test 24 meq/L 22-29 code = 355) BLOOD UREA NITROGEN 32 mg/dL 7-21 H (BEAKER) (test code = 354) CREATININE (BEAKER) 4.71 mg/dL 0.57-1.25 H (test code = 358) GLUCOSE RANDOM 143 mg/dL 70-105 H (BEAKER) (test code = 652) CALCIUM (BEAKER) 7.8 mg/dL 8.4-10.2 L (test code = 697) EGFR (BEAKER) (test 12 mL/min/1.73 ESTIMA SALLY GFR IS code = 1092) sq m NOT ACCURATE CREATININE CLEARANCE IN PREDICTING GLOMERULAR FILTRATION RATE . ESTIMATED GFR I S NOT APPLICABLE FOR DIALYSIS PATIEN TS. Air Brush Operator ID - DANA [id number] 05:33:11 Test Item Value Reference Range Interpretation Comments PHOSPHORUS (BEAKER) (test code = 1.8 mg/dL 2.3-4.7 L 604) Air Brush Operator ID - MAXIMINOROSIE [id number] 05:33:10 Test Item Value Reference Range Interpretation Comments MAGNESIUM (BEAKER) (test code = 2.1 mg/dL 1.6-2.6 627) Air Brush Operator ID - MAXIMINOROSIE [id number] 05:07:34 Test Item Value Reference Range Interpretation Comments PARTIAL THROMBOPLASTIN TIME 88.6 seconds 22.5-36.0 H (BEAKER) (test code = 760) BLOOD GAS, [id number] 05:04:51 Test Item Value Reference Range Interpretation Comments PH ARTERIAL (BEAKER) (test code = 7.46 7.35-7.45 H 383) PCO2 ARTERIAL (BEAKER) (test code 35 mm Hg 35-45 = 384) PO2 ARTERIAL (BEAKER) (test code = 167 mm Hg 80-90 H 385) O2 SATURATION ARTERIAL (BEAKER) 99.2 % 96.0-97.0 H (test code = 386) HCO3 ARTERIAL (BEAKER) (test code 24 mmol/L 21-29 = 388) BASE EXCESS ARTERIAL (BEAKER) 0.6 mmol/L -2.0-3.0 (test code = 387) PATIENT TEMPERATURE (BEAKER) (test 37.0 code = 1818) FIO2 (BEAKER) (test code = 1819) 21.0 CBC W/PLT COUNT & AUTO [id number] 01:02:26 Test Item Value Reference Range Interpretation Comments WHITE BLOOD CELL COUNT (BEAKER) 17.5 K/ L 3.5-10.5 H (test code = 775) RED BLOOD CELL COUNT (BEAKER) 3.02 M/ L 3.93-5.22 L (test code = 761) HEMOGLOBIN (BEAKER) (test code = 8.9 GM/DL 11.2-15.7 L 410) HEMATOCRIT (BEAKER) (test code = 27.7 % 34.1-44.9 L 411) MEAN CORPUSCULAR VOLUME (BEAKER) 91.7 fL 79.4-94.8 (test code = 753) MEAN CORPUSCULAR HEMOGLOBIN 29.5 pg 25.6-32.2 (BEAKER) (test code = 751) MEAN CORPUSCULAR HEMOGLOBIN CONC 32.1 GM/DL 32.2-35.5 L (BEAKER) (test code = 752) RED CELL DISTRIBUTION WIDTH 20.0 % 11.7-14.4 H (BEAKER) (test code = 412) PLATELET COUNT (BEAKER) (test 247 K/CU MM 150-450 code = 756) MEAN PLATELET VOLUME (BEAKER) 11.3 fL 9.4-12.3 (test code = 754) NUCLEATED RED BLOOD CELLS 0 /100 WBC 0-0 (BEAKER) (test code = 413) NEUTROPHILS RELATIVE PERCENT 89 % (BEAKER) (test code = 429) LYMPHOCYTES RELATIVE PERCENT 5 % (BEAKER) (test code = 430) MONOCYTES RELATIVE PERCENT 4 % (BEAKER) (test code = 431) EOSINOPHILS RELATIVE PERCENT 0 % (BEAKER) (test code = 432) BASOPHILS RELATIVE PERCENT 0 % (BEAKER) (test code = 437) NEUTROPHILS ABSOLUTE COUNT 15.58 K/ L 1.56-6.13 H (BEAKER) (test code = 670) LYMPHOCYTES ABSOLUTE COUNT 0.94 K/ L 1.18-3.74 L (BEAKER) (test code = 414) MONOCYTES ABSOLUTE COUNT (BEAKER) 0.69 K/ L 0.24-0.36 H (test code = 415) EOSINOPHILS ABSOLUTE COUNT 0.00 K/ L 0.04-0.36 L (BEAKER) (test code = 416) BASOPHILS ABSOLUTE COUNT (BEAKER) 0.01 K/ L 0.01-0.08 (test code = 417) IMMATURE GRANULOCYTES-RELATIVE 2 % 0-1 H PERCENT (BEAKER) (test code = 2801) POCT-GLUCOSE [id number] 23:37:00 Test Item Value Reference Range Interpretation Comments POC-GLUCOSE METER 195 mg/dL 70-110 H : TESTED A T [facility] 6720 (BEAKER) (test code = [place] [facility], 1538) [address]: Air Brush Operator/Techni daniel ID = [id number] for TOM ALEGRIA [id number] 21:52:26 Test Item Value Reference Range Interpretation Comments PARTIAL THROMBOPLASTIN TIME 102.9 seconds 22.5-36.0 H (BEAKER) (test code = 760) SARS-COV2/RT-PCR ([facility])2021-08-25 21:18:24 Test Item Value Reference Range Interpretation Comments SARS-COV2/RT-PCR (test code = Negative Negative [id number]) Negative result for this test determines that SARS-CoV-2 RNA was not present in the specimen above the Limit of Detection (LOD). However, Negative results do not preclude SARS-CoV-2 infection and should not be used as the sole basis for treatment or patient management decisions. Negative results must be combined with clinical observations, patient history, and epidemiological information. A false negative result may occur if a specimen is improperly collected, transported, or handled. A false negative result should be considered if patient's recent exposures or clinical presentation indicate that COVID-19 (SARS-CoV-2) is likely and diagnostic tests for other causes of illness are negative. Re-testing should be considered in cases of suspected false negatives.The limit of detection for this assay is 100 copies/mL.This SARS-CoV-2 test is a real-time RT_PCR test intended for the qualitative detection of nucleic acid from SARS-CoV-2 in a nasopharyngeal swab specimen collected from individuals suspected of COVID-19 by their healthcare provider.This test has not been Food and Drug Administration (FDA) cleared or approved. This is a modified version of an approved Emergency Use Authorization (EUA) and is in the process of review by the FDA. Once authorized by the FDA, the issued EUA will be effective until the declaration that circumstances exist justifying the authorization of the emergency use of in vitro diagnostic tests for detection and/or diagnosis of COVID-19 is terminated under Section 564(b)(2) of the Act or the EUA is revoked under Section 564(g) of the Act.Testing was performed using t Lao SARS-CoV-2 assay.Fact Sheet for Healthcare Providers:https://www.molecular.lao/marianela/RT SARS-CoV-2 HCP Fact Sheet 51- 873227.pdfFact Sheet for Healthcare Patients:https://www.Novawise.lao/marianela/RT SARS-CoV-2 Patient Fact Sheet EN 51-282464M9.pdfPOCT-GLUCOSE [id number] 18:25:16 Test Item Value Reference Range Interpretation Comments POC-GLUCOSE METER 247 mg/dL 70-110 H : TESTED A T [facility] 6720 ([facility]) (test code = [place] [facility], 1538) [address]: Air Brush Operator/Techni daniel ID = [id number] for LEIGHTON TOWNSEND West Nile Virus, CSF, IgG and [id number] 15:54:50 Test Item Value Reference Range Interpretation Comments West Nile <0.90 REFERENCE RANGE : <0.90 Ab,Igm (test INTERPRETIVE CR ITERIA code = <0.90 Antibody not [id number]) detected 0.90 - 1.10 Equivocal >1.10 Antibody detect ed West Nile virus (WNV ) IgM is usually detecta blein CSF from WNV-in fected patients withencephaliti s or meningitis at t he time ofclinical presentation. B ecause IgM antibody do esnot readily cross t he blood-brain bar rier, IgMantibody in CSF strongly sugges ts acute centralnervous system infection. WNV antibody resultsfrom CSF should be in interpret ed with caution.Possibl e complicating fa ctors include low lev elsof antibody found in CSF, passive transfe r ofantibodies fr om blood, and contamination v iabloody spinal taps. An tibodies induced by otherflavivirus infections (e.g . Dengue virus, St.Amado encephalitis vi isaura) may showcross-react ivity with WNV. CECELIA (test Performing Lab code = CECELIA) *QDID [facility] [address] [place] [address] Shirlene Fernandes MD, PhD [facility] 14:48:58 Test Item Value Reference Range Interpretation Comments PARTIAL THROMBOPLASTIN TIME 41.5 seconds 22.5-36.0 H (BEAKER) (test code = 760) POC-Glucose [id number] 12:57:53 Test Item Value Reference Range Interpretation Comments POC-Glucose Meter (test 106 mg/dL 70-110 : TE STED AT [facility] code = 1538) [address] [facility], [address]70 30: Air Brush Operator/Techni daniel ID = [id number] for Lay Johns a Lab Interpretation (test Normal code = 49272-0) [facility]PO[facility]-GLUCOSE [id number] 12:57:53 Test Item Value Reference Range Interpretation Comments POC-GLUCOSE METER 106 mg/dL 70-110 : TESTED A T [facility] 6720 (BEAKER) (test code = ANIL Brown [place] [facility], 1538) [address]: Air Brush Operator/Techni daniel ID = [id number] for Sandi tarango, Nguyen Prepare Leuko-Red [id number] 12:14:00 Test Item Value Reference Range Interpretation Comments CROSSMATCH (test code = 2264) COMPATIBLE Unit ABO (test code = O Pos [id number]) UNIT NUMBER (test code = [id number] 934-0) Status (test code = 9096757) READY Blood Bank Product (test code RED BLOOD CELLS = 2263) PRODUCT CODE (test code = U0067S42 933-2) [facility] CampusPrepare Leuko-Red [id number] 12:14:00 Test Item Value Reference Range Interpretation Comments CROSSMATCH (test code = 2264) COMPATIBLE Unit ABO (test code = O Pos [id number]) UNIT NUMBER (test code = [id number] 934-0) Status (test code = 2872626) READY Blood Bank Product (test code RED BLOOD CELLS = 2263) PRODUCT CODE (test code = L7802P98 933-2) [facility] CampusAPTT2022-06-02 11:50:59 Test Item Value Reference Range Interpretation Comments PARTIAL THROMBOPLASTIN TIME 124.7 seconds 22.5-36.0 H (BEAKER) (test code = 760) LACTIC ACID, [id number] 11:30:11 Test Item Value Reference Range Interpretation Comments LACTATE BLOOD VENOUS 0.96 mmol/L 0.50-2.20 Specime n slightly (2) (BEAKER) (test hemolyzed code = 2872) Air Brush Operator ID - BSRAD, CHEST, 1 VIEW, NON [id number] 11:18:00Reason for exam:- >Mechanical VentilationShould this be performed at the bedside?->Yes [facility] 1965 Sex: FFINAL REPORT RAD, CHEST, 1 VIEW, NON DEPT INDICATION: Mechanical VentilationCOMPARISON: Prior day's exam FINDINGS: Portable frontal view of the chest. IMPRESSION: Support Lines: ET tube tip is 2cm superior to jonny. Feeding tube descends below the diaphragm. Dialysis cathetertip overlies the right atrium. Lungs and pleura: Mild diffuse bilateral interstitial thickening. No significant pneumothorax. Heart and mediastinum: Stable contours. Stable surgical changes. Additional findings: None. Signed: Ruth Benítez Verified Date/Time: 08/25/2021 11:18:15 Reading Location: [facility] Radiology Reading Room Sputum Culture + Gram [id number] 10:08:37 Test Item Value Reference Range Interpretation Comments Result (test code = 1+ Normal respiratory 6463-4) johnny present Gram Stain Result No organisms seen (test code = 1123) [facility] Gram [id number] 10:08:37 Test Item Value Reference Range Interpretation Comments Result (test code = 1+ Normal respiratory 6463-4) johnny present Gram Stain Result No organisms seen (test code = 1123) [facility] + GRAM [id number] 10:08:37 Test Item Value Reference Range Interpretation Comments CULTURE (BEAKER) 1+ Normal respiratory (test code = 1095) johnny present GRAM STAIN RESULT <1+ WBCs (BEAKER) (test code = 1123) GRAM STAIN RESULT No organisms seen (BEAKER) (test code = 87772) HEPATIC FUNCTION [id number] 09:14:03 Test Item Value Reference Range Interpretation Comments TOTAL PROTEIN (BEAKER) (test code = 4.8 gm/dL 6.0-8.3 L 770) ALBUMIN (BEAKER) (test code = 1145) 2.4 g/dL 3.5-5.0 L BILIRUBIN TOTAL (BEAKER) (test code 0.2 mg/dL 0.2-1.2 = 377) BILIRUBIN DIRECT (BEAKER) (test 0.1 mg/dL 0.1-0.5 code = 706) ALKALINE PHOSPHATASE (BEAKER) (test 127 U/L 40-150 code = 346) AST (SGOT) (BEAKER) (test code = 10 U/L 5-34 353) ALT (SGPT) (BEAKER) (test code = < U/L 6-55 L 347) Air Brush Operator ID - BSCREATINE KINASE (CK)2021-08-25 09:01:58 Test Item Value Reference Range Interpretation Comments CREATINE KINASE TOTAL (BEAKER) (test 46 U/L 29-200 code = 380) Air Brush Operator ID - BSCBC (HEMOGRAM ONLY)2021-08-25 06:27:41 Test Item Value Reference Range Interpretation Comments WHITE BLOOD CELL COUNT (BEAKER) 21.6 K/ L 3.5-10.5 H (test code = 775) RED BLOOD CELL COUNT (BEAKER) 2.34 M/ L 3.93-5.22 L (test code = 761) HEMOGLOBIN (BEAKER) (test code = 6.9 GM/DL 11.2-15.7 L 410) HEMATOCRIT (BEAKER) (test code = 21.9 % 34.1-44.9 L 411) MEAN CORPUSCULAR VOLUME (BEAKER) 93.6 fL 79.4-94.8 (test code = 753) MEAN CORPUSCULAR HEMOGLOBIN 29.5 pg 25.6-32.2 (BEAKER) (test code = 751) MEAN CORPUSCULAR HEMOGLOBIN CONC 31.5 GM/DL 32.2-35.5 L (BEAKER) (test code = 752) RED CELL DISTRIBUTION WIDTH 20.8 % 11.7-14.4 H (BEAKER) (test code = 412) PLATELET COUNT (BEAKER) (test 242 K/CU MM 150-450 code = 756) MEAN PLATELET VOLUME (BEAKER) 11.9 fL 9.4-12.3 (test code = 754) NUCLEATED RED BLOOD CELLS 1 /100 WBC 0-0 H (BEAKER) (test code = 413) POC-Glucose [id number] 06:02:24 Test Item Value Reference Range Interpretation Comments POC-Glucose Meter (test 136 mg/dL 70-110 H : TE STED AT [facility] code = 1538) [address] [facility], 770 30: Air Brush Operator/Techni daniel ID = [id number] for PRESTON HYATT Lab Interpretation (test Abnormal code = 93425-9) [facility] CampusPOCT-GLUCOSE [id number] 06:02:24 Test Item Value Reference Range Interpretation Comments POC-GLUCOSE METER 136 mg/dL 70-110 H : TESTED A T [facility] 6720 (BEAKER) (test code = ANIL Brown [facility], 1538) [address]: Air Brush Operator/Techni daniel ID = [id number] for PRESTON HYATT [id number] 04:23:40 Test Item Value Reference Range Interpretation Comments PARTIAL THROMBOPLASTIN TIME 102.9 seconds 22.5-36.0 H (BEAKER) (test code = 760) [id number] 03:36:27 Test Item Value Reference Range Interpretation Comments PHOSPHORUS (BEAKER) (test code = 0.8 mg/dL 2.3-4.7 LL 604) Air Brush Operator ID - BSBASI METABOLIC [id number] 03:35:15 Test Item Value Reference Range Interpretation Comments SODIUM (BEAKER) 137 meq/L 136-145 (test code = 381) POTASSIUM (BEAKER) 3.7 meq/L 3.5-5.1 (test code = 379) CHLORIDE (BEAKER) 102 meq/L 98-107 (test code = 382) CO2 (BEAKER) (test 26 meq/L 22-29 code = 355) BLOOD UREA NITROGEN 20 mg/dL 7-21 (BEAKER) (test code = 354) CREATININE (BEAKER) 3.60 mg/dL 0.57-1.25 H (test code = 358) GLUCOSE RANDOM 206 mg/dL 70-105 H (BEAKER) (test code = 652) CALCIUM (BEAKER) 7.6 mg/dL 8.4-10.2 L (test code = 697) EGFR (BEAKER) (test 16 mL/min/1.73 ESTIMA SALLY GFR IS code = 1092) sq m NOT ACCURATE CREATININE CLEARANCE IN PREDICTING GLOMERULAR FILTRATION RATE . ESTIMATED GFR I S NOT APPLICABLE FOR DIALYSIS PATIEN TS. Air Brush Operator ID - [id number] 03:31:58 Test Item Value Reference Range Interpretation Comments MAGNESIUM (BEAKER) (test code = 2.0 mg/dL 1.6-2.6 627) Air Brush Operator ID - BSLACTIC ACID, [id number] 03:23:15 Test Item Value Reference Range Interpretation Comments LACTATE BLOOD VENOUS 2.91 mmol/L 0.50-2.20 H Specime n slightly (2) (BEAKER) (test hemolyzed code = 2982) Air Brush Operator ID - BSCBC W/PLT COUNT & AUTO [id number] 03:22:48 Test Item Value Reference Range Interpretation Comments WHITE BLOOD CELL COUNT (BEAKER) 21.0 K/ L 3.5-10.5 H (test code = 775) RED BLOOD CELL COUNT (BEAKER) 2.36 M/ L 3.93-5.22 L (test code = 761) HEMOGLOBIN (BEAKER) (test code = 6.9 GM/DL 11.2-15.7 L 410) HEMATOCRIT (BEAKER) (test code = 21.9 % 34.1-44.9 L 411) MEAN CORPUSCULAR VOLUME (BEAKER) 92.8 fL 79.4-94.8 (test code = 753) MEAN CORPUSCULAR HEMOGLOBIN 29.2 pg 25.6-32.2 (BEAKER) (test code = 751) MEAN CORPUSCULAR HEMOGLOBIN CONC 31.5 GM/DL 32.2-35.5 L (BEAKER) (test code = 752) RED CELL DISTRIBUTION WIDTH 20.6 % 11.7-14.4 H (BEAKER) (test code = 412) PLATELET COUNT (BEAKER) (test 253 K/CU MM 150-450 code = 756) MEAN PLATELET VOLUME (BEAKER) 11.9 fL 9.4-12.3 (test code = 754) NUCLEATED RED BLOOD CELLS 0 /100 WBC 0-0 (BEAKER) (test code = 413) NEUTROPHILS RELATIVE PERCENT 88 % (BEAKER) (test code = 429) LYMPHOCYTES RELATIVE PERCENT 7 % (BEAKER) (test code = 430) MONOCYTES RELATIVE PERCENT 4 % (BEAKER) (test code = 431) EOSINOPHILS RELATIVE PERCENT 0 % (BEAKER) (test code = 432) BASOPHILS RELATIVE PERCENT 0 % (BEAKER) (test code = 437) NEUTROPHILS ABSOLUTE COUNT 18.35 K/ L 1.56-6.13 H (BEAKER) (test code = 670) LYMPHOCYTES ABSOLUTE COUNT 1.41 K/ L 1.18-3.74 (BEAKER) (test code = 414) MONOCYTES ABSOLUTE COUNT (BEAKER) 0.78 K/ L 0.24-0.36 H (test code = 415) EOSINOPHILS ABSOLUTE COUNT 0.00 K/ L 0.04-0.36 L (BEAKER) (test code = 416) BASOPHILS ABSOLUTE COUNT (BEAKER) 0.02 K/ L 0.01-0.08 (test code = 417) IMMATURE GRANULOCYTES-RELATIVE 2 % 0-1 H PERCENT (BEAKER) (test code = 2801) Blood gas, [id number] 03:16:19 Test Item Value Reference Range Interpretation Comments pH, Arterial (test code 7.48 7.35-7.45 H = 2744-1) pCO2, Arterial (test 39 See_Comment [Autom ated message] code = 2019-8) The system [facility] generated this result transmit sally reference range : 35 - 45 mm Hg. The reference range was not used to interpret this result as normal/abnormal . pO2, Arterial (test 169 See_Comment H [Automa sally message] code = 2703-7) The system [employer] generated this result transmit sally reference range : 80 - 90 mm Hg. The reference range was not used to interpret this result as normal/abnormal . O2 Sat, Arterial (test 99.2 % 96.0-97.0 H code = 2708-6) HCO3, Arterial (test 29 mmol/L 21-29 code = 1960-4) Base Excess, Arterial 4.9 mmol/L -2.0-3.0 H (test code = 1925-7) Patient Temperature 37.1 (test code = 8310-5) FIO2 (test code = 1819) 30 Lab Interpretation Abnormal (test code = 14264-9) [facility] CampusBlood gas, [id number] 03:16:19 Test Item Value Reference Range Interpretation Comments pH, Arterial (test code 7.48 7.35-7.45 H = 2744-1) pCO2, Arterial (test 39 See_Comment [Autom ated message] code = 2019-8) The system [employer] generated this result transmit sally reference range : 35 - 45 mm Hg. The reference range was not used to interpret this result as normal/abnormal . pO2, Arterial (test 169 See_Comment H [Automa sally message] code = 2703-7) The system [employer] generated this result transmit sally reference range : 80 - 90 mm Hg. The reference range was not used to interpret this result as normal/abnormal . O2 Sat, Arterial (test 99.2 % 96.0-97.0 H code = 2708-6) HCO3, Arterial (test 29 mmol/L 21-29 code = 1960-4) Base Excess, Arterial 4.9 mmol/L -2.0-3.0 H (test code = 1925-7) Patient Temperature 37.1 (test code = 8310-5) FIO2 (test code = 1819) 30 Lab Interpretation Abnormal (test code = 27716-1) [facility] CampusBLOOD GAS, [id number] 03:16:19 Test Item Value Reference Range Interpretation Comments PH ARTERIAL (BEAKER) (test code = 7.48 7.35-7.45 H 383) PCO2 ARTERIAL (BEAKER) (test code 39 mm Hg 35-45 = 384) PO2 ARTERIAL (BEAKER) (test code = 169 mm Hg 80-90 H 385) O2 SATURATION ARTERIAL (BEAKER) 99.2 % 96.0-97.0 H (test code = 386) HCO3 ARTERIAL (BEAKER) (test code 29 mmol/L 21-29 = 388) BASE EXCESS ARTERIAL (BEAKER) 4.9 mmol/L -2.0-3.0 H (test code = 387) PATIENT TEMPERATURE (BEAKER) (test 37.1 code = 1818) FIO2 (BEAKER) (test code = 1819) 30.0 POCT-GLUCOSE [id number] 23:21:14 Test Item Value Reference Range Interpretation Comments POC-GLUCOSE METER 219 mg/dL 70-110 H : [facility] (BEAKER[place] (test code = [place], 1538) [address]: Air Brush Operator/Techni daniel ID = [id number] for Lily Khan PHENYTOIN LEVEL, [id number] 18:02:03 Test Item Value Reference Range Interpretation Comments PHENYTOIN (DILANTIN) (BEAKER) 10.8 ug/mL 10.0-20.0 (test code = 605) Air Brush Operator ID - BSLactic Acid, [id number] 17:18:10 Test Item Value Reference Range Interpretation Comments Lactate, Art (test code = 3.3 mmol/L 0.5-2.2 H 2874) CECELIA (test code = CECELIA) Air Brush Operator ID - BS Lab Interpretation (test Abnormal code = 71245-1) [facility] CampusLactic Acid, [id number] 17:18:10 Test Item Value Reference Range Interpretation Comments Lactate, Art (test code = 3.3 mmol/L 0.5-2.2 H 2874) CECELIA (test code = CECELIA) Air Brush Operator ID - BS Lab Interpretation (test Abnormal code = 38862-4) [facility] CampusLactic Acid, [id number] 17:18:10 Test Item Value Reference Range Interpretation Comments Lactate, Art (test code = 3.3 mmol/L 0.5-2.2 H 2874) CECELIA (test code = CECELIA) Air Brush Operator ID - BS Lab Interpretation (test Abnormal code = 31923-0) [facility], [facility] CampusLACTIC ACID, [id number] 17:18:10 Test Item Value Reference Range Interpretation Comments LACTATE BLOOD ARTERIAL (2) 3.3 mmol/L 0.5-2.2 H ([facility]) (test code = 2874) Air Brush Operator ID - BSPOCT-GLUCOSE [id number] 17:14:39 Test Item Value Reference Range Interpretation Comments POC-GLUCOSE METER 201 mg/dL 70-110 H : TESTED A T [facility] 6720 ([facility]) (test code = ANIL Brown [facility], 1538) [address]: Air Brush Operator/Techni daniel ID = [id number] for DANA LIVE [id number] 17:11:31 Test Item Value Reference Range Interpretation Comments PARTIAL THROMBOPLASTIN TIME 34.6 seconds 22.5-36.0 ([facility]) (test code = 760) POCT-GLUCOSE [id number] 15:32:40 Test Item Value Reference Range Interpretation Comments POC-GLUCOSE METER 205 mg/dL 70-110 H : TESTED A T [facility] 6720 ([facility]) (test code [facility], = 1538) [address]: Air Brush Operator/Techni daniel ID = [id number] for VIRAJ RYDER RAD, CHEST, 1 VIEW, NON [id number] 10:11:00Reason for exam:->post picc lineShould this be performed at the bedside?->Yes [facility] : 1965 Sex: FFINAL REPORT Chest, one view. HISTORY: post picc line COMPARISON: Radiographfrom earlier today IMPRESSION: Interval removal of the left IJ central venous catheter with intervalplacement of the left PICC. The tip of the PICC lies within the right brachiocephalic vein. Otherwise, the support lines and tubes are unchanged in position. The patchy opacity in the left retrocardiac region is most consistent with atelectasis. The interstitial pulmonary edema has improved. Trace left pleural effusion. No pneumothorax. The cardiac silhouette is unchanged in size. No acute bone abnormality. Signed: Sergio Ramirez [facility] Verified Date/Time: 08/24/2021 10:11:09 [facility] culture + gram [id number] 08:51:16 Test Item Value Reference Range Interpretation Comments Result (test code = 6463-4) No growth Gram Stain Result (test No organisms seen code = 1123) [facility] culture + gram [id number] 08:51:16 Test Item Value Reference Range Interpretation Comments Result (test code = 6463-4) No growth Gram Stain Result (test No organisms seen code = 1123) [facility] culture + gram [id number] 08:51:16 Test Item Value Reference Range Interpretation Comments Result (test code = 6463-4) No growth Gram Stain Result (test No organisms seen code = 1123) [facility] CULTURE + GRAM [id number] 08:51:16 Test Item Value Reference Range Interpretation Comments CULTURE (BEAKER) (test No growth code = 1095) GRAM STAIN RESULT No White blood cells (BEAKER) (test code = seen 1123) GRAM STAIN RESULT No organisms seen (BEAKER) (test code = 26493) (CELLAVISION MANUAL DIFF)2021-08-24 07:11:26 Test Item Value Reference Range Interpretation Comments NEUTROPHILS - REL 89 % (CELLAVISION)(BEAKER) (test code = 2816) LYMPHOCYTES - REL 4 % (CELLAVISION)(BEAKER) (test code = 2817) MONOCYTES - REL 5 % (CELLAVISION)(BEAKER) (test code = 2818) BANDS - REL (CELLAVISION)(BEAKER) 1 % 0-10 (test code = 2826) ATYPICAL LYMPHOCYTES - REL 1 % 0-0 H (CELLAVISION)(BEAKER) (test code = 2829) NEUTROPHILS - ABS 22.78 K/ul 1.56-6.13 H (CELLAVISION)(BEAKER) (test code = 2830) LYMPHOCYTES - ABS 1.02 K/ul 1.18-3.74 L (CELLAVISION)(BEAKER) (test code = 2831) MONOCYTES - ABS 1.28 K/uL 0.24-0.36 H (CELLAVISION)(BEAKER) (test code = 2832) BANDS - ABS (CELLAVISION)(BEAKER) 0.26 K/uL 0.00-0.80 (test code = 2840) ATYPICAL LYMPHOCYTES - ABS 0.26 K/uL 0.00-0.00 H (CELLAVISION)(BEAKER) (test code = 2858) TOTAL COUNTED (BEAKER) (test code 100 = 1351) MANUAL NRBC PER 100 CELLS 1 /100 WBC 0-0 H (BEAKER) (test code = 1353) WBC MORPHOLOGY (BEAKER) (test Normal code = 487) GIANT PLATELETS (BEAKER) (test Present code = 313) POLYCHROMATOPHILLIC RBCS(BEAKER) 1+ few (test code = 478) HYPOCHROMIA (BEAKER) (test code = 1+ few 963) ANISOCYTOSIS (BEAKER) (test code 2+ moderate = 961) MACROCYTES (BEAKER) (test code = 2+ moderate 964) POIKILOCYTES (BEAKER) (test code 1+ few = 966) ELLIPTOCYTES (BEAKER) (test code 1+ few = 962) ARTIFACT (CELLAVISION)(BEAKER) Present (test code = 3432) PLATELET CONCENTRATION Adequate (CELLAVISION)(BEAKER) (test code = 3438) Air Brush Operator ID - dian Ang comments: Slide comments:CBC W/PLT COUNT & AUTO [id number] 07:11:25 Test Item Value Reference Range Interpretation Comments WHITE BLOOD CELL COUNT 25.6 K/ L 3.5-10.5 H (BEAKER) (test code = 775) RED BLOOD CELL COUNT 2.57 M/ L 3.93-5.22 L (BEAKER) (test code = 761) HEMOGLOBIN (BEAKER) 7.4 GM/DL 11.2-15.7 L (test code = 410) HEMATOCRIT (BEAKER) 23.5 % 34.1-44.9 L (test code = 411) MEAN CORPUSCULAR 91.4 fL 79.4-94.8 Discordant MCV VOLUME (BEAKER) (test result s compared to code = 753) previous result s; clinical correl ation required. MEAN CORPUSCULAR 28.8 pg 25.6-32.2 HEMOGLOBIN (BEAKER) (test code = 751) MEAN CORPUSCULAR 31.5 GM/DL 32.2-35.5 L HEMOGLOBIN CONC (BEAKER) (test code = 752) RED CELL DISTRIBUTION 19.1 % 11.7-14.4 H WIDTH (BEAKER) (test code = 412) PLATELET COUNT 282 K/CU MM 150-450 (BEAKER) (test code = 756) MEAN PLATELET VOLUME 11.7 fL 9.4-12.3 (BEAKER) (test code = 754) NUCLEATED RED BLOOD 1 /100 WBC 0-0 H CELLS (BEAKER) (test code = 413) POCT-GLUCOSE [id number] 06:02:48 Test Item Value Reference Range Interpretation Comments POC-GLUCOSE METER 158 mg/dL 70-110 H : TESTED A T [facility] 6720 (BEAKER) (test code = [place], 1538) [address]: Air Brush Operator/Techni daniel ID = [id number] for Lily Khan BASIC METABOLIC [id number] 06:02:11 Test Item Value Reference Range Interpretation Comments SODIUM (BEAKER) 141 meq/L 136-145 (test code = 381) POTASSIUM (BEAKER) 3.8 meq/L 3.5-5.1 (test code = 379) CHLORIDE (BEAKER) 105 meq/L 98-107 (test code = 382) CO2 (BEAKER) (test 27 meq/L 22-29 code = 355) BLOOD UREA NITROGEN 29 mg/dL 7-21 H (BEAKER) (test code = 354) CREATININE (BEAKER) 5.44 mg/dL 0.57-1.25 H (test code = 358) GLUCOSE RANDOM 203 mg/dL 70-105 H (BEAKER) (test code = 652) CALCIUM (BEAKER) 8.0 mg/dL 8.4-10.2 L (test code = 697) EGFR (BEAKER) (test 10 mL/min/1.73 ESTIMA SALLY GFR IS code = 1092) sq m NOT ACCURATE CREATININE CLEARANCE IN PREDICTING GLOMERULAR FILTRATION RATE . ESTIMATED GFR I S NOT APPLICABLE FOR DIALYSIS PATIEN TS. Air Brush Operator ID - DANA [id number] 05:50:44 Test Item Value Reference Range Interpretation Comments PHOSPHORUS (BEAKER) (test code = 1.6 mg/dL 2.3-4.7 L 604) Air Brush Operator ID - DANA [id number] 05:50:43 Test Item Value Reference Range Interpretation Comments MAGNESIUM (BEAKER) (test code = 2.1 mg/dL 1.6-2.6 627) Air Brush Operator ID - DANA LBLOOD GAS, [id number] 05:48:16 Test Item Value Reference Range Interpretation Comments PH ARTERIAL (BEAKER) (test code = 7.42 7.35-7.45 383) PCO2 ARTERIAL (BEAKER) (test code 42 mm Hg 35-45 = 384) PO2 ARTERIAL (BEAKER) (test code = 176 mm Hg 80-90 H 385) O2 SATURATION ARTERIAL (BEAKER) 99.2 % 96.0-97.0 H (test code = 386) HCO3 ARTERIAL (BEAKER) (test code 27 mmol/L 21-29 = 388) BASE EXCESS ARTERIAL (BEAKER) 2.2 mmol/L -2.0-3.0 (test code = 387) PATIENT TEMPERATURE (BEAKER) (test 37.2 code = 1818) FIO2 (BEAKER) (test code = 1819) 30.0 CALCIUM, [id number] 05:48:16 Test Item Value Reference Range Interpretation Comments CALCIUM IONIZED (BEAKER) (test 1.09 mmol/L 1.12-1.27 L code = 698) PH, BLOOD (BEAKER) (test code = 7.43 1810) [id number] 05:40:48 Test Item Value Reference Range Interpretation Comments PARTIAL THROMBOPLASTIN TIME 143.9 seconds 22.5-36.0 H (BEAKER) (test code = 760) LACTIC ACID, [id number] 05:26:27 Test Item Value Reference Range Interpretation Comments LACTATE BLOOD VENOUS (2) (BEAKER) 2.61 mmol/L 0.50-2.20 H (test code = 2872) Air Brush Operator ID - BSRAD, CHEST, 1 VIEW, NON [id number] 01:27:00Reason for exam:- >Mechanical VentilationShould this be performed at the bedside?->Yes [facility] : 1965 Sex: FFINAL REPORT EXAM/TECHNIQUE: Single view frontal radiograph of the chest. Supine radiograph of the abdomen. INDICATION: Feeding tube, ventilation COMPARISON: 08/20/2021 FINDINGS: Devices/Objects: Feeding tube terminates in the distal stomach/proximal duodenum. Left internal jugular central venous catheter curves upward into the right brachiocephalic vein. Lungs: No focal consol idation. No pleural effusion. No pneumothorax. Heart/Mediastinum: No cardiomegaly. No interstitial thickening. Osseous: No acute osseous process. No suspicious osseous lesion. Abdomen: Unremarkable. Impression: 1. Left internal jugular central venous catheter turns upwards and terminates in the right b rachiocephalic vein. Consider repositioning. 2. Feeding tube terminates in the distal stomach/proximal duodenum. Signed: [facility] Verified Date/Time: 08/24/2021 01:27:04 RAD, ABDOMEN/KUB, 1 VIEW [id number] 01:27:00Reason for exam:->s/p corpak placementShould this be performed at the bedside?->Yes [facility] : 1965 Sex: FFINAL REPORT EXAM/TECHNIQUE: Single view frontal radiograph of the chest. Supine radiograph of the abdomen. INDICATION: Feeding tube, ventilation COMPARISON: 08/20/2021 FINDINGS:Devices/Objects: Feeding tube terminates in the distal stomach/proximal duodenum. Left internal jugular central venous catheter curves upward into the right brachiocephalic vein. Lungs: No focal consoli dation. No pleural effusion. No pneumothorax. Heart/Mediastinum: No cardiomegaly. No interstitial thickening. Osseous: No acute osseous process. No suspicious osseous lesion. Abdomen: Unremarkable. Impression: 1. Left internal jugular central venous catheter turns upwards and terminates in the right br achiocephalic vein. Consider repositioning. 2. Feeding tube terminates in the distal stomach/proximal duodenum. Signed: [facility] Verified Date/Time: 08/24/2021 01:27:04 POCT-GLUCOSE [id number] 23:59:45 Test Item Value Reference Range Interpretation Comments POC-GLUCOSE METER 205 mg/dL 70-110 H : TESTED A T [facility] 6720 (CARLY) (test code = [place], 1538) [id number]: Air Brush Operator/Techni daniel ID = [id number] for MARGARITO DINH [id number] 21:22:54 Test Item Value Reference Range Interpretation Comments PARTIAL THROMBOPLASTIN TIME 119.0 seconds 22.5-36.0 H (CARLY) (test code = 760) [id number] 19:09:03 Test Item Value Reference Range Interpretation Comments PARTIAL THROMBOPLASTIN TIME 198.9 seconds 22.5-36.0 HH (BEAKER) (test code = 760) POCT-GLUCOSE [id number] 16:52:22 Test Item Value Reference Range Interpretation Comments POC-GLUCOSE METER 225 mg/dL 70-110 H : TESTED A T [facility] 6720 ([facility]) (test code = ANIL Brown [facility], 1538) [id number]: Air Brush Operator/Techni daniel ID = [id number] for BERNADINE RESTREPO [id number] 14:50:11 Test Item Value Reference Range Interpretation Comments PROCALCITONIN (BEAKER) (test code 5.78 ng/mL <0.05 H = 3036) SEPSIS RISK (ng/mL)Low: 0.05-0.50Intermediate: 0.51-2.00High: >=2.01Venous doppler arms [id number] 12:23:42Ejection FractionSLEH ECHO HEARTLAB [facility] 2021-08-23 12:23:42Ejection FractionSLEH ECHO HEARTLAB MKCKESSON [facility] [id number] 12:23:42Ejection [facility] 2021[facility] 12:08:56 Test Item Value Reference Range Interpretation Comments PARTIAL THROMBOPLASTIN TIME 29.7 seconds 22.5-36.0 (BEAKER) (test code = 760) POCT-GLUCOSE [id number] 12:03:43 Test Item Value Reference Range Interpretation Comments POC-GLUCOSE METER 184 mg/dL 70-110 H : TESTED A T [facility] 6720 [facility] (test code = ANIL Brown [facility], 1538) [address]: Air Brush Operator/Techni daniel ID = [id number] for MORGAN DAILEYO BERNADINE RAD, CHEST, 1 VIEW, NON [id number] 11:17:00Reason for exam:- >repositioning ettShould this be performed at the bedside?->Yes [facility] : 1965 Sex: FFINAL REPORT RAD, CHEST, 1 VIEW, NON DEPT INDICATION: repositioning ett COMPARISON: Prior day's exam FINDINGS: Portable frontal view of the chest. IMPRESSION: Support Lines: ET tube tip is 3 cm superior to jonny. Feeding tube descends below the diaphragm. Assess catheter tip overlies the right atrium. Left-sided central catheter is unchanged with tip directed superiorly, presu mably within the distal contralateral right brachiocephalic or the right IJ. Lungs and pleura: Smallleft effusion and adjacent atelectasis. No significant pneumothorax. Heart and mediastinum: Stable contours. Stable surgical changes. Additional findings: None. Signed: Ruth Benítez MDReport Verified Date/Time: 08/23/2021 11:17:41 Reading Location: [facility] Radiology Reading Room , CHEST, 1 VIEW, NON [id number] 09:20:00Reason for exam:->Mechanical VentilationShould this be performed at the bedside?->Yes [facility] MAKI STRATTON [place] : 1965 Sex: FFINAL REPORT Chest AP portable Comparison exam: 08/22/2021 History provided: Follow-up intubated patient ET tube has been retracted slightly and its tip lies in good position 1.5cm above the jonny. Feeding tube tip in the stomach. Right jugular tunneled dialysis catheter tip at the cavoatrial junction. Left jugular catheter crosses the midline with its tip in the right subclavian vein. Pleural effusion remains on the left with associated basilar atelectasis. Right lung clear. Normal vascularity. Signed: Junito Mayberryort Verified Date/Time: 08/23/2021 09:20:01 Reading Location: [facility] Radiology Reading Room (CELLAVISION MANUAL DIFF)2021-08-23 06:42:11 Test Item Value Reference Range Interpretation Comments NEUTROPHILS - REL 96 % (CELLAVISION)(BEAKER) (test code = 2816) LYMPHOCYTES - REL 3 % (CELLAVISION)(BEAKER) (test code = 2817) MONOCYTES - REL 1 % (CELLAVISION)(BEAKER) (test code = 2818) NEUTROPHILS - ABS 23.04 K/ul 1.56-6.13 H (CELLAVISION)(BEAKER) (test code = 2830) LYMPHOCYTES - ABS 0.72 K/ul 1.18-3.74 L (CELLAVISION)(BEAKER) (test code = 2831) MONOCYTES - ABS 0.24 K/uL 0.24-0.36 (CELLAVISION)(BEAKER) (test code = 2832) TOTAL COUNTED (BEAKER) (test code 100 = 1351) MANUAL NRBC PER 100 CELLS 1 /100 WBC 0-0 H (BEAKER) (test code = 1353) PLT MORPHOLOGY (BEAKER) (test Normal code = 486) TOXIC GRANULATION (BEAKER) (test Present code = 771) HYPOCHROMIA (BEAKER) (test code = 1+ few 963) ANISOCYTOSIS (BEAKER) (test code 2+ moderate = 961) MACROCYTES (BEAKER) (test code = 2+ moderate 964) POIKILOCYTES (BEAKER) (test code 2+ moderate = 966) OVALOCYTES (BEAKER) (test code = 2+ moderate 477) ARTIFACT (CELLAVISION)(BEAKER) Present (test code = 3432) PAPPENHEIMER 1+ few (CELLAVISION)(BEAKER) (test code = 3435) PLATELET CONCENTRATION Adequate (CELLAVISION)(BEAKER) (test code = 3438) Air Brush Operator ID - Marin comments: Slide comments:CBC W/PLT COUNT & AUTO [id number] 06:42:10 Test Item Value Reference Range Interpretation Comments WHITE BLOOD CELL COUNT (BEAKER) 24.0 K/ L 3.5-10.5 H (test code = 775) RED BLOOD CELL COUNT (BEAKER) 2.51 M/ L 3.93-5.22 L (test code = 761) HEMOGLOBIN (BEAKER) (test code = 7.3 GM/DL 11.2-15.7 L 410) HEMATOCRIT (BEAKER) (test code = 21.8 % 34.1-44.9 L 411) MEAN CORPUSCULAR VOLUME (BEAKER) 86.9 fL 79.4-94.8 (test code = 753) MEAN CORPUSCULAR HEMOGLOBIN 29.1 pg 25.6-32.2 (BEAKER) (test code = 751) MEAN CORPUSCULAR HEMOGLOBIN CONC 33.5 GM/DL 32.2-35.5 (BEAKER) (test code = 752) RED CELL DISTRIBUTION WIDTH 18.5 % 11.7-14.4 H (BEAKER) (test code = 412) PLATELET COUNT (BEAKER) (test 225 K/CU MM 150-450 code = 756) MEAN PLATELET VOLUME (BEAKER) 11.8 fL 9.4-12.3 (test code = 754) NUCLEATED RED BLOOD CELLS 0 /100 WBC 0-0 (BEAKER) (test code = 413) POCT-GLUCOSE [id number] 05:25:06 Test Item Value Reference Range Interpretation Comments POC-GLUCOSE METER 233 mg/dL 70-110 H : TESTED A T [facility] 6720 (BEAKER) (test code = [place], 1538) [address]: Air Brush Operator/Techni daniel ID = [id number] for Jaquelin Burns BASIC METABOLIC [id number] 04:30:11 Test Item Value Reference Range Interpretation Comments SODIUM (BEAKER) 138 meq/L 136-145 (test code = 381) POTASSIUM (BEAKER) 3.7 meq/L 3.5-5.1 (test code = 379) CHLORIDE (BEAKER) 103 meq/L 98-107 (test code = 382) CO2 (BEAKER) (test 25 meq/L 22-29 code = 355) BLOOD UREA NITROGEN 17 mg/dL 7-21 (BEAKER) (test code = 354) CREATININE (BEAKER) 4.38 mg/dL 0.57-1.25 H (test code = 358) GLUCOSE RANDOM 286 mg/dL 70-105 H (BEAKER) (test code = 652) CALCIUM (BEAKER) 8.0 mg/dL 8.4-10.2 L (test code = 697) EGFR (BEAKER) (test 13 mL/min/1.73 ESTIMA SALLY GFR IS code = 1092) sq m NOT ACCURATE CREATININE CLEARANCE IN PREDICTING GLOMERULAR FILTRATION RATE . ESTIMATED GFR I S NOT APPLICABLE FOR DIALYSIS PATIEN TS. Air Brush Operator ID - [id number] 04:18:30 Test Item Value Reference Range Interpretation Comments MAGNESIUM (BEAKER) (test code = 1.8 mg/dL 1.6-2.6 627) Air Brush Operator ID - [id number] 04:18:30 Test Item Value Reference Range Interpretation Comments PHOSPHORUS (BEAKER) (test code = 1.7 mg/dL 2.3-4.7 L 604) Air Brush Operator ID - DBBLOOD GAS, [id number] 04:06:03 Test Item Value Reference Range Interpretation Comments PH ARTERIAL (BEAKER) (test code = 7.50 7.35-7.45 H 383) PCO2 ARTERIAL (BEAKER) (test code 35 mm Hg 35-45 = 384) PO2 ARTERIAL (BEAKER) (test code = 152 mm Hg 80-90 H 385) O2 SATURATION ARTERIAL (BEAKER) 99.1 % 96.0-97.0 H (test code = 386) HCO3 ARTERIAL (BEAKER) (test code 27 mmol/L 21-29 = 388) BASE EXCESS ARTERIAL (BEAKER) 3.3 mmol/L -2.0-3.0 H (test code = 387) PATIENT TEMPERATURE (BEAKER) (test 36.7 code = 1818) FIO2 (BEAKER) (test code = 1819) 30.0 POCT-GLUCOSE [id number] 00:35:37 Test Item Value Reference Range Interpretation Comments POC-GLUCOSE METER 247 mg/dL 70-110 H : TESTED A T [facility] 6720 (BEAKER) (test code = [facility], 1538) [address]: Air Brush Operator/Techni daniel ID = [id number] for Jaquelin Burns [id number] 17:21:29 Test Item Value Reference Range Interpretation Comments ALBUMIN (BEAKER) (test code = 1145) 2.2 g/dL 3.5-5.0 L Air Brush Operator ID - CALVIN WPOCT-GLUCOSE [id number] 17:10:59 Test Item Value Reference Range Interpretation Comments POC-GLUCOSE METER 200 mg/dL 70-110 H : TESTED A T [facility] 6720 (BEAKER) (test code = [facility], 1538) [address]: Air Brush Operator/Techni daniel ID = [id number] for BYRON GARCIAIRA RAD, CHEST, 1 VIEW, NON [id number] 07:38:00Reason for exam:->Mechanical VentilationShould this be performed at the bedside?->Yes [facility] : 1965 Sex: FFINAL REPORT Chest, one view. HISTORY: Mechanical Ventilation COMPARISON: Radiograph from yesterday IMPRESSION: The support lines and tubes are unchanged in position. There is intubation of the right mainstem bronchus, and the left IJ central venous catheter has its tip over the right brachiocephalic vein. Consider repositioning of at least the endotracheal tube air by 3 cm. The left retrocardiac lung opacity has increased and could be due to atelectasis, pneumonia, or aspiration. There is likely a small left pleural effusion. No pneumothorax. The cardiac silhouette is unchanged in size. No acute bone abnormality. Old, healed right proximal humerus fracture. The findings were discussed with the patient's nurse, Annelise, on 08/22/2021 at 7:37 PM. Signed: Sergio Ramirez MDRepzulma Verified Date/Time: 08/22/2021 07:38:56 Reading Location: [facility] C013Y CT Body Reading Room (CELLAVISION MANUAL DIFF)2021-08-22 07:17:24 Test Item Value Reference Range Interpretation Comments NEUTROPHILS - REL 85 % (CELLAVISION)(BEAKER) (test code = 2816) LYMPHOCYTES - REL 14 % (CELLAVISION)(BEAKER) (test code = 2817) BANDS - REL (CELLAVISION)(BEAKER) 1 % 0-10 (test code = 2826) NEUTROPHILS - ABS 9.61 K/ul 1.56-6.13 H (CELLAVISION)(BEAKER) (test code = 2830) LYMPHOCYTES - ABS 1.58 K/ul 1.18-3.74 (CELLAVISION)(BEAKER) (test code = 2831) BANDS - ABS (CELLAVISION)(BEAKER) 0.11 K/uL 0.00-0.80 (test code = 2840) TOTAL COUNTED (BEAKER) (test code 100 = 1351) WBC MORPHOLOGY (BEAKER) (test Normal code = 487) PLT MORPHOLOGY (BEAKER) (test Normal code = 486) HYPOCHROMIA (BEAKER) (test code = 1+ few 963) ANISOCYTOSIS (BEAKER) (test code 1+ few = 961) MACROCYTES (BEAKER) (test code = 1+ few 964) POIKILOCYTES (BEAKER) (test code 2+ moderate = 966) TARGET CELLS (BEAKER) (test code 1+ few = 480) SCHISTOCYTES (BEAKER) (test code 1+ few = 765) OVALOCYTES (BEAKER) (test code = 1+ few 477) ARTIFACT (CELLAVISION)(BEAKER) Present (test code = 3432) PLATELET CONCENTRATION Adequate (CELLAVISION)(BEAKER) (test code = 3438) Air Brush Operator ID - Katherine OverholtUser comments: Slide comments:CBC W/PLT COUNT & AUTO [id number] 07:17:14 Test Item Value Reference Range Interpretation Comments WHITE BLOOD CELL COUNT (BEAKER) 11.3 K/ L 3.5-10.5 H (test code = 775) RED BLOOD CELL COUNT (BEAKER) 2.64 M/ L 3.93-5.22 L (test code = 761) HEMOGLOBIN (BEAKER) (test code = 7.5 GM/DL 11.2-15.7 L 410) HEMATOCRIT (BEAKER) (test code = 23.0 % 34.1-44.9 L 411) MEAN CORPUSCULAR VOLUME (BEAKER) 87.1 fL 79.4-94.8 (test code = 753) MEAN CORPUSCULAR HEMOGLOBIN 28.4 pg 25.6-32.2 (BEAKER) (test code = 751) MEAN CORPUSCULAR HEMOGLOBIN CONC 32.6 GM/DL 32.2-35.5 (BEAKER) (test code = 752) RED CELL DISTRIBUTION WIDTH 18.4 % 11.7-14.4 H (BEAKER) (test code = 412) PLATELET COUNT (BEAKER) (test 174 K/CU MM 150-450 code = 756) MEAN PLATELET VOLUME (BEAKER) 11.1 fL 9.4-12.3 (test code = 754) NUCLEATED RED BLOOD CELLS 0 /100 WBC 0-0 (BEAKER) (test code = 413) POCT-GLUCOSE [id number] 05:49:24 Test Item Value Reference Range Interpretation Comments POC-GLUCOSE METER 171 mg/dL 70-110 H : TESTED A T [facility] 6720 (BEAKER) (test code = [facility] [place], 1538) [address]: Air Brush Operator/Techni daniel ID = [id number] for Zoe Lofton BASIC METABOLIC [id number] 05:17:50 Test Item Value Reference Range Interpretation Comments SODIUM (BEAKER) 138 meq/L 136-145 (test code = 381) POTASSIUM (BEAKER) 4.5 meq/L 3.5-5.1 Specimen slightly (test code = 379) hemolyzed CHLORIDE (BEAKER) 107 meq/L 98-107 (test code = 382) CO2 (BEAKER) (test 20 meq/L 22-29 L code = 355) BLOOD UREA NITROGEN 19 mg/dL 7-21 (BEAKER) (test code = 354) CREATININE (BEAKER) 6.60 mg/dL 0.57-1.25 H Specimen slightly (test code = 358) hemolyzed GLUCOSE RANDOM 205 mg/dL 70-105 H (BEAKER) (test code = 652) CALCIUM (BEAKER) 7.7 mg/dL 8.4-10.2 L (test code = 697) EGFR (BEAKER) (test 8 mL/min/1.73 ESTIMAT ED GFR IS code = 1092) sq m NOT ACCURATE CREATININE CLEARANCE IN PREDICTING GLOMERULAR FILTRATION RATE . ESTIMATED GFR I S NOT APPLICABLE FOR DIALYSIS PATIEN TS. Air Brush Operator ID - [id number] 05:00:51 Test Item Value Reference Range Interpretation Comments MAGNESIUM (BEAKER) 1.9 mg/dL 1.6-2.6 Specimen slightly (test code = 627) hemolyzed Air Brush Operator ID - DBOperator ID - [id number] 05:00:51 Test Item Value Reference Range Interpretation Comments PHOSPHORUS (BEAKER) 3.3 mg/dL 2.3-4.7 Specimen slightly (test code = 604) hemolyzed Air Brush Operator ID - DBBLOOD GAS, [id number] 04:29:31 Test Item Value Reference Range Interpretation Comments PH ARTERIAL (BEAKER) (test code = 7.50 7.35-7.45 H 383) PCO2 ARTERIAL (BEAKER) (test code 26 mm Hg 35-45 L = 384) PO2 ARTERIAL (BEAKER) (test code 143 mm Hg 80-90 H = 385) O2 SATURATION ARTERIAL (BEAKER) 99.1 % 96.0-97.0 H (test code = 386) HCO3 ARTERIAL (BEAKER) (test code 20 mmol/L 21-29 L = 388) BASE EXCESS ARTERIAL (BEAKER) -1.3 mmol/L -2.0-3.0 (test code = 387) PATIENT TEMPERATURE (BEAKER) 36.6 (test code = 1818) FIO2 (BEAKER) (test code = 1819) 30.0 POCT-GLUCOSE [id number] 23:59:55 Test Item Value Reference Range Interpretation Comments POC-GLUCOSE METER 187 mg/dL 70-110 H : TESTED A T [facility] 6720 (BEAKER) (test code = [place], 1538) [address]: Air Brush Operator/Techni daniel ID = [id number] for Zoe Lofton Protein, [id number] 17:36:26 Test Item Value Reference Range Interpretation Comments Protein, CSF (test code = 13 mg/dL 15-45 L 2880-3) CECELIA (test code = CECELIA) Air Brush Operator ID - [id number] Lab Interpretation (test Abnormal code = 60543-4) [facility], [id number] 17:36:26 Test Item Value Reference Range Interpretation Comments Protein, CSF (test code = 13 mg/dL 15-45 L 2880-3) CECELIA (test code = CECELIA) Air Brush Operator ID - [id number] Lab Interpretation (test Abnormal code = 33457-8) [facility], [id number] 17:36:26 Test Item Value Reference Range Interpretation Comments Protein, CSF (test code = 13 mg/dL 15-45 L 2880-3) CECELIA (test code = CECELIA) Air Brush Operator ID - [id number] Lab Interpretation (test Abnormal code = 66299-7) [facility] CampusPR[facility]IN, [id number] 17:36:26 Test Item Value Reference Range Interpretation Comments PROTEIN CSF (BEAKER) (test code = 13 mg/dL 15-45 L 378) Air Brush Operator ID - [id number] METABOLIC [id number] 16:48:28 Test Item Value Reference Range Interpretation Comments SODIUM (BEAKER) 143 meq/L 136-145 (test code = 381) POTASSIUM (BEAKER) 3.9 meq/L 3.5-5.1 Specimen slightly (test code = 379) hemolyzed CHLORIDE (BEAKER) 110 meq/L 98-107 H (test code = 382) CO2 (BEAKER) (test 25 meq/L 22-29 code = 355) BLOOD UREA NITROGEN 13 mg/dL 7-21 (BEAKER) (test code = 354) CREATININE (BEAKER) 5.84 mg/dL 0.57-1.25 H Specimen slightly (test code = 358) hemolyzed GLUCOSE RANDOM 111 mg/dL 70-105 H (BEAKER) (test code = 652) CALCIUM (BEAKER) 8.0 mg/dL 8.4-10.2 L (test code = 697) EGFR (BEAKER) (test 9 mL/min/1.73 ESTIMAT ED GFR IS code = 1092) sq m NOT ACCURATE CREATININE CLEARANCE IN PREDICTING GLOMERULAR FILTRATION RATE . ESTIMATED GFR I S NOT APPLICABLE FOR DIALYSIS PATIEN TS. Air Brush Operator JAZLYN SIMPSON [id number] 16:41:27 Test Item Value Reference Range Interpretation Comments PHOSPHORUS (BEAKER) 3.7 mg/dL 2.3-4.7 Specimen slightly (test code = 604) hemolyzed Air Brush Operator JAZLYN SIMPSON WMENINGITIS/ENCEPHALITIS [id number] 16:26:56 Test Item Value Reference Range Interpretation Comments E COLI K1 (test code = Not detected Not detected 39865-2) HAEMOPHILUS INFLUENZAE Not detected Not detected (test code = 21312-4) LISTERIA MONOCYTOGENES Not detected Not detected (test code = 26811-0) NEISSERIA MENINGITIDIS Not detected Not detected (test code = 40381-1) STREPTOCOCCUS Not detected Not detected AGALACTIAE (test code = 30388-0) STREPTOCOCCUS Not detected Not detected PNEUMONIAE (test code = 01403-0) Cytomegalovirus (CMV) Not detected Not detected (test code = 79683-6) ENTEROVIRUS (test code Not detected Not detected = 40249-7) Human herpesvirus 6 Not detected Not detected (HHV-6) (test code = 63874-9) Herpes simplex virus Not detected Not detected 1(HSV-1) (test code = 43002-8) HERPES SIMPLEX VIRUS Not detected Not detected 2(HSV-2) (test code = 84732-4) Human parechovirus Not detected Not detected (test code = 54656-1) Varicella-zoster virus Not detected Not detected (VZV) (test code = 30374-6) Cryptococcus Not detected Not detected neoformans/gattii (test code = 53557-5) CECELIA (test code = CECELIA) The performance of this test has not been specifically evaluated for CSF specimens from immunocompromised individuals. The effect of antibiotic treatment on test performance has not been evaluated. Other viruses and bacteria not targeted by this PCR panel cannot be excluded; therefore, clinical correlation and follow up of serology, culture results, and other molecular studies may be required. This sample was tested at the [facility] Molecular Diagnostics Laboratory using the [employer] Meningitis Encephalitis Panel. It is FDA cleared and has been verified and approved by the [facility] Molecular Diagnostics Laboratory for clinical use. This laboratory is CLIA-certified and [employer] (CAP)-accredited to perform high complexity testing. Lab Interpretation Normal (test code = 03134-4) [facility] CampusMENINGITIS/ENCEPHALITIS [id number] 16:26:56 Test Item Value Reference Range Interpretation Comments E COLI K1 (test code = Not detected Not detected 90095-8) HAEMOPHILUS INFLUENZAE Not detected Not detected (test code = 84339-2) LISTERIA MONOCYTOGENES Not detected Not detected (test code = 55810-8) NEISSERIA MENINGITIDIS Not detected Not detected (test code = 41379-4) STREPTOCOCCUS Not detected Not detected AGALACTIAE (test code = 71006-9) STREPTOCOCCUS Not detected Not detected PNEUMONIAE (test code = 24413-0) Cytomegalovirus (CMV) Not detected Not detected (test code = 86034-2) ENTEROVIRUS (test code Not detected Not detected = 12126-1) Human herpesvirus 6 Not detected Not detected (HHV-6) (test code = 15373-4) Herpes simplex virus Not detected Not detected 1(HSV-1) (test code = 08814-2) HERPES SIMPLEX VIRUS Not detected Not detected 2(HSV-2) (test code = 60386-2) Human parechovirus Not detected Not detected (test code = 89725-5) Varicella-zoster virus Not detected Not detected (VZV) (test code = 33730-3) Cryptococcus Not detected Not detected neoformans/gattii (test code = 48335-6) CECELIA (test code = CECELIA) The performance of this test has not been specifically evaluated for CSF specimens from immunocompromised individuals. The effect of antibiotic treatment on test performance has not been evaluated. Other viruses and bacteria not targeted by this PCR panel cannot be excluded; therefore, clinical correlation and follow up of serology, culture results, and other molecular studies may be required. This sample was tested at the [facility] Molecular Diagnostics Laboratory using the [employer] Film[employer] Meningitis Encephalitis Panel. It is FDA cleared and has been verified and approved by the [facility] Molecular Diagnostics Laboratory for clinical use. This laboratory is CLIA-certified and [employer] (CAP)-accredited to perform high complexity testing. Lab Interpretation Normal (test code = 59458-6) [facility] CampusMENINGITIS/ENCEPHALITIS [id number] 16:26:56 Test Item Value Reference Range Interpretation Comments E COLI K1 (test code = Not detected Not detected 71855-5) HAEMOPHILUS INFLUENZAE Not detected Not detected (test code = 84431-2) LISTERIA MONOCYTOGENES Not detected Not detected (test code = 08184-2) NEISSERIA MENINGITIDIS Not detected Not detected (test code = 51986-2) STREPTOCOCCUS Not detected Not detected AGALACTIAE (test code = 66840-9) STREPTOCOCCUS Not detected Not detected PNEUMONIAE (test code = 07856-5) Cytomegalovirus (CMV) Not detected Not detected (test code = 53118-6) ENTEROVIRUS (test code Not detected Not detected = 06124-5) Human herpesvirus 6 Not detected Not detected (HHV-6) (test code = 27677-8) Herpes simplex virus Not detected Not detected 1(HSV-1) (test code = 37468-9) HERPES SIMPLEX VIRUS Not detected Not detected 2(HSV-2) (test code = 35885-0) Human parechovirus Not detected Not detected (test code = 53488-0) Varicella-zoster virus Not detected Not detected (VZV) (test code = 37325-1) Cryptococcus Not detected Not detected neoformans/gattii (test code = 99444-6) CECELIA (test code = CECELIA) The performance of this test has not been specifically evaluated for CSF specimens from immunocompromised individuals. The effect of antibiotic treatment on test performance has not been evaluated. Other viruses and bacteria not targeted by this PCR panel cannot be excluded; therefore, clinical correlation and follow up of serology, culture results, and other molecular studies may be required. This sample was tested at the [facility] Molecular Diagnostics Laboratory using the [employer] Meningitis Encephalitis Panel. It is FDA cleared and has been verified and approved by the [facility] Molecular Diagnostics Laboratory for clinical use. This laboratory is CLIA-certified and [employer] (CAP)-accredited to perform high complexity testing. Lab Interpretation Normal (test code = 51307-0) [facility] CampusMENINGITIS/ENCEPHALITIS [id number] 16:26:56 Test Item Value Reference Range Interpretation Comments ESCHERICHIA COLI K1 (test code = Not detected Not detected 20151225) HAEMOPHILUS INFLUENZAE (test Not detected Not detected code = 5897469) LISTERIA MONOCYTOGENES (test Not detected Not detected code = 3821408) NEISSERIA MENINGITIDIS (test Not detected Not detected code = 4437328) STREPTOCOCCUS AGALACTIAE (test Not detected Not detected code = 5818246) STREPTOCOCCUS PNEUMONIAE (test Not detected Not detected code = 0423615) CYTOMEGALOVIRUS (CMV) (test code Not detected Not detected = 5640976) ENTEROVIRUS (test code = Not detected Not detected 8109137) HUMAN HERPESVIRUS 6 (HHV-6) Not detected Not detected (test code = 9055916) HERPES SIMPLEX VIRUS 1(HSV-1) Not detected Not detected (test code = 8102286) HERPES SIMPLEX VIRUS 2(HSV-2) Not detected Not detected (test code = 9917455) HUMAN PARECHOVIRUS (test code = Not detected Not detected 7861337) VARICELLA-ZOSTER VIRUS (VZV) Not detected Not detected (test code = 7443142) CRYPTOCOCCUS NEOFORMANS/GATTII Not detected Not detected (test code = 2187081) The performance of this test has not been specifically evaluated for CSF specimens from immunocompromised individuals. The effect of antibiotic treatment on test performance has not been evaluated. Other viruses and bacteria not targeted by this PCR panel cannot be excluded; therefore, clinical correlation and follow up of serology, culture results, and other molecular studies may be required. This sample was tested at the [facility] Molecular Diagnostics Laboratory using the [employer] FilmArray MeningitisEncephalitis Panel. It is FDA cleared and has been verified and approved by the [facility] Molecular Diagnostics Laboratory for clinical use. This laboratory is CLIA-certified and [employer] Path[employer] g[employer] (CAP)-accredited to perform high complexity testing.CSF cell count with [id number] 16:03:36 Test Item Value Reference Range Interpretation Comments Appearance (test Clear Clear code = 30528-4) Color (test code = Colorless Colorless 50478-7) RBCs (test code = 0 See_Comment [Automate d message] 792-2) The system [employer] generated this result transmit sally reference range : 0 - 5 /cu mm. The reference range was not used to interpret this result as normal/abnormal . WBCs (test code = 0 See_Comment [Automate d message] 806-0) The system [employer] generated this result transmit sally reference range : <=5 /cu mm. The reference range was not used to interpret this result as normal/abnormal . RBCs Fresh? (test Not Applicable code = 78107-3) # of Cells Diff'd 0 (test code = 48478-9) Tube Number (test 1 code = 2677) [facility] cell count with [id number] 16:03:36 Test Item Value Reference Range Interpretation Comments Appearance (test Clear Clear code = 30645-1) Color (test code = Colorless Colorless 27935-6) RBCs (test code = 0 See_Comment [Automate d message] 792-2) The system [employer] generated this result transmit sally reference range : 0 - 5 /cu mm. The reference range was not used to interpret this result as normal/abnormal . WBCs (test code = 0 See_Comment [Automate d message] 806-0) The system [employer] generated this result transmit sally reference range : <=5 /cu mm. The reference range was not used to interpret this result as normal/abnormal . RBCs Fresh? (test Not Applicable code = 39593-7) # of Cells Diff'd 0 (test code = 16002-2) Tube Number (test 1 code = 2677) [facility] cell count with [id number] 16:03:36 Test Item Value Reference Range Interpretation Comments Appearance (test Clear Clear code = 64146-1) Color (test code = Colorless Colorless 38820-7) RBCs (test code = 0 See_Comment [Automate d message] 792-2) The system [employer] generated this result transmit sally reference range : 0 - 5 /cu mm. The reference range was not used to interpret this result as normal/abnormal . WBCs (test code = 0 See_Comment [Automate d message] 806-0) The system [employer] generated this result transmit sally reference range : <=5 /cu mm. The reference range was not used to interpret this result as normal/abnormal . RBCs Fresh? (test Not Applicable code = 01255-2) # of Cells Diff'd 0 (test code = 40712-3) Tube Number (test 1 code = 2677) [facility] [id number] 16:03:36 Test Item Value Reference Range Interpretation Comments APPEARANCE CSF Clear Clear (BEAKER) (test code = 407) COLOR CSF (BEAKER) Colorless Colorless (test code = 408) RBC CSF (BEAKER) 0 /cu mm 0-5 (test code = 409) WBC CSF (BEAKER) 0 /cu mm See_Comment [Automated message] (test code = 1020) The syste m which generated this result transmit sally reference range : <=5. The refere nce range was not u sed to interpret th is result as normal/abnormal . RBCS FRESH (BEAKER) Not Applicable (test code = 1444) NUMBER OF CELLS 0 DIFF'D (BEAKER) (test code = 1591) TUBE NUMBER CSF 1 (BEAKER) (test code = 2678) Glucose, [id number] 14:55:50 Test Item Value Reference Range Interpretation Comments Glucose, CSF (test code = 68 mg/dL 40-70 2342-4) CECELIA (test code = CECELIA) Air Brush Operator ID - CALVIN Giraldo Lab Interpretation (test Normal code = 50405-7) [facility], [id number] 14:55:50 Test Item Value Reference Range Interpretation Comments Glucose, CSF (test code = 68 mg/dL 40-70 2342-4) CECELIA (test code = CCEELIA) Air Brush Operator ID - CALVIN W Lab Interpretation (test Normal code = 78528-2) [facility], [id number] 14:55:50 Test Item Value Reference Range Interpretation Comments Glucose, CSF (test code = 68 mg/dL 40-70 2342-4) CECELIA (test code = CECELIA) Air Brush Operator ID - CALVIN W Lab Interpretation (test Normal code = 92639-8) [facility], [id number] 14:55:50 Test Item Value Reference Range Interpretation Comments GLUCOSE CSF (BEAKER) (test code = 68 mg/dL 40-70 406) Air Brush Operator JAZLYN EUCEDAHENYTOIN LEVEL, [id number] 13:12:52 Test Item Value Reference Range Interpretation Comments PHENYTOIN (DILANTIN) (BEAKER) 14.6 ug/mL 10.0-20.0 (test code = 605) Air Brush Operator ID - CALVIN [id number] 13:10:45 Test Item Value Reference Range Interpretation Comments PHOSPHORUS (BEAKER) (test code = 1.3 mg/dL 2.3-4.7 LL 604) Air Brush Operator ID - CALVIN WBASIC METABOLIC [id number] 13:10:24 Test Item Value Reference Range Interpretation Comments SODIUM (BEAKER) 142 meq/L 136-145 (test code = 381) POTASSIUM (BEAKER) 3.4 meq/L 3.5-5.1 L (test code = 379) CHLORIDE (BEAKER) 110 meq/L 98-107 H (test code = 382) CO2 (BEAKER) (test 25 meq/L 22-29 code = 355) BLOOD UREA NITROGEN 13 mg/dL 7-21 (BEAKER) (test code = 354) CREATININE (BEAKER) 5.70 mg/dL 0.57-1.25 H (test code = 358) GLUCOSE RANDOM 103 mg/dL 70-105 (BEAKER) (test code = 652) CALCIUM (BEAKER) 8.2 mg/dL 8.4-10.2 L (test code = 697) EGFR (BEAKER) (test 9 mL/min/1.73 ESTIMAT ED GFR IS code = 1092) sq m NOT ACCURATE CREATININE CLEARANCE IN PREDICTING GLOMERULAR FILTRATION RATE . ESTIMATED GFR I S NOT APPLICABLE FOR DIALYSIS PATIEN TS. Air Brush Operator ID - CALVIN [id number] 13:08:12 Test Item Value Reference Range Interpretation Comments MAGNESIUM (BEAKER) (test code = 1.9 mg/dL 1.6-2.6 627) Air Brush Operator ID - CALVIN WHEMOGLOBIN AND [id number] 12:47:46 Test Item Value Reference Range Interpretation Comments HEMOGLOBIN (BEAKER) (test code = 7.5 GM/DL 11.2-15.7 L 410) HEMATOCRIT (BEAKER) (test code = 22.3 % 34.1-44.9 L 411) CBC W/PLT COUNT & AUTO [id number] 12:47:45 Test Item Value Reference Range Interpretation Comments WHITE BLOOD CELL COUNT (BEAKER) 10.5 K/ L 3.5-10.5 (test code = 775) RED BLOOD CELL COUNT (BEAKER) 2.60 M/ L 3.93-5.22 L (test code = 761) HEMOGLOBIN (BEAKER) (test code = 7.5 GM/DL 11.2-15.7 L 410) HEMATOCRIT (BEAKER) (test code = 22.3 % 34.1-44.9 L 411) MEAN CORPUSCULAR VOLUME (BEAKER) 85.8 fL 79.4-94.8 (test code = 753) MEAN CORPUSCULAR HEMOGLOBIN 28.8 pg 25.6-32.2 (BEAKER) (test code = 751) MEAN CORPUSCULAR HEMOGLOBIN CONC 33.6 GM/DL 32.2-35.5 (BEAKER) (test code = 752) RED CELL DISTRIBUTION WIDTH 18.2 % 11.7-14.4 H (BEAKER) (test code = 412) PLATELET COUNT (BEAKER) (test 198 K/CU MM 150-450 code = 756) MEAN PLATELET VOLUME (BEAKER) 10.8 fL 9.4-12.3 (test code = 754) NUCLEATED RED BLOOD CELLS 0 /100 WBC 0-0 (BEAKER) (test code = 413) NEUTROPHILS RELATIVE PERCENT 65 % (BEAKER) (test code = 429) LYMPHOCYTES RELATIVE PERCENT 25 % (BEAKER) (test code = 430) MONOCYTES RELATIVE PERCENT 5 % (BEAKER) (test code = 431) EOSINOPHILS RELATIVE PERCENT 4 % (BEAKER) (test code = 432) BASOPHILS RELATIVE PERCENT 0 % (BEAKER) (test code = 437) NEUTROPHILS ABSOLUTE COUNT 6.87 K/ L 1.56-6.13 H (BEAKER) (test code = 670) LYMPHOCYTES ABSOLUTE COUNT 2.60 K/ L 1.18-3.74 (BEAKER) (test code = 414) MONOCYTES ABSOLUTE COUNT (BEAKER) 0.56 K/ L 0.24-0.36 H (test code = 415) EOSINOPHILS ABSOLUTE COUNT 0.39 K/ L 0.04-0.36 H (BEAKER) (test code = 416) BASOPHILS ABSOLUTE COUNT (BEAKER) 0.03 K/ L 0.01-0.08 (test code = 417) IMMATURE GRANULOCYTES-RELATIVE 1 % 0-1 PERCENT (BEAKER) (test code = 2801) RAD, CHEST, 1 VIEW, NON [id number] 09:25:00Reason for exam:->Mechanical VentilationShould this be performed at the bedside?->Yes [facility] : 1965 Sex: FFINAL REPORT Chest, 1 view. History: Mechanical ventilation. Comparison: 08/19/2021. IMPRESSION: Endotracheal tube identified terminating at the level the jonny and projecting towards the right mainstem bronchus. Recommend retraction by a few centimeters. Right IJ tunneled dialysis catheter identified with tip terminating over the superior right atrium. Left IJ venous catheteragain identified crossing midline with tip projecting superiorly towards the right brachiocephalic vein/SVC junction. Enteric tube noted coursing below the diaphragm with distal tip turning over the gastric body. There is no evidence for new large focal consolidation, pneumothorax, or significant volume pleural effusion. The cardiomediastinal silhouette is stable in appearance. No acute osseous abnormality is identified. Signed: Edwar Thayer Verified Date/Time: 08/21/2021 09:25:13 Reading Location: [address] Consult Reading Room POCT- GLUCOSE [id number] 06:30:02 Test Item Value Reference Range Interpretation Comments POC-GLUCOSE METER 89 mg/dL 70-110 : TESTED A T [facility] 6720 (CARLY) (test code = [place], 1538) [address]: Air Brush Operator/Techni daniel ID = [id number] for MIGUEL VALENCIA BLOOD GAS, [id number] 05:51:06 Test Item Value Reference Range Interpretation Comments PH ARTERIAL (BEAKER) (test code = 7.55 7.35-7.45 H 383) PCO2 ARTERIAL (BEAKER) (test code 28 mm Hg 35-45 L = 384) PO2 ARTERIAL (BEAKER) (test code = 163 mm Hg 80-90 H 385) O2 SATURATION ARTERIAL (BEAKER) 99.3 % 96.0-97.0 H (test code = 386) HCO3 ARTERIAL (BEAKER) (test code 24 mmol/L 21-29 = 388) BASE EXCESS ARTERIAL (BEAKER) 1.5 mmol/L -2.0-3.0 (test code = 387) PATIENT TEMPERATURE (BEAKER) (test 37.0 code = 1818) FIO2 (BEAKER) (test code = 1819) 30.0 [id number] 04:38:02 Test Item Value Reference Range Interpretation Comments PHOSPHORUS (BEAKER) (test code = 0.9 mg/dL 2.3-4.7 LL 604) Air Brush Operator ID - CALVIN WOperator ID Chris SIMPSON WBASIC METABOLIC [id number] 04:08:48 Test Item Value Reference Range Interpretation Comments SODIUM (BEAKER) 143 meq/L 136-145 (test code = 381) POTASSIUM (BEAKER) 3.0 meq/L 3.5-5.1 L (test code = 379) CHLORIDE (BEAKER) 112 meq/L 98-107 H (test code = 382) CO2 (BEAKER) (test 24 meq/L 22-29 code = 355) BLOOD UREA NITROGEN 12 mg/dL 7-21 (BEAKER) (test code = 354) CREATININE (BEAKER) 5.31 mg/dL 0.57-1.25 H (test code = 358) GLUCOSE RANDOM 92 mg/dL 70-105 (BEAKER) (test code = 652) CALCIUM (BEAKER) 8.2 mg/dL 8.4-10.2 L (test code = 697) EGFR (BEAKER) (test 10 mL/min/1.73 ESTIMA SALLY GFR IS code = 1092) sq m NOT ACCURATE CREATININE CLEARANCE IN PREDICTING GLOMERULAR FILTRATION RATE . ESTIMATED GFR I S NOT APPLICABLE FOR DIALYSIS PATIEN TS. Air Brush Operator ID Chris SIMPSON [id number] 04:03:45 Test Item Value Reference Range Interpretation Comments MAGNESIUM (BEAKER) (test code = 1.8 mg/dL 1.6-2.6 627) Air Brush Operator JAZLYN SIMPSON WCBC W/PLT COUNT & AUTO [id number] 03:49:05 Test Item Value Reference Range Interpretation Comments WHITE BLOOD CELL COUNT (BEAKER) 10.4 K/ L 3.5-10.5 (test code = 775) RED BLOOD CELL COUNT (BEAKER) 2.46 M/ L 3.93-5.22 L (test code = 761) HEMOGLOBIN (BEAKER) (test code = 7.0 GM/DL 11.2-15.7 L 410) HEMATOCRIT (BEAKER) (test code = 21.5 % 34.1-44.9 L 411) MEAN CORPUSCULAR VOLUME (BEAKER) 87.4 fL 79.4-94.8 (test code = 753) MEAN CORPUSCULAR HEMOGLOBIN 28.5 pg 25.6-32.2 (BEAKER) (test code = 751) MEAN CORPUSCULAR HEMOGLOBIN CONC 32.6 GM/DL 32.2-35.5 (BEAKER) (test code = 752) RED CELL DISTRIBUTION WIDTH 17.5 % 11.7-14.4 H (BEAKER) (test code = 412) PLATELET COUNT (BEAKER) (test 197 K/CU MM 150-450 code = 756) MEAN PLATELET VOLUME (BEAKER) 10.8 fL 9.4-12.3 (test code = 754) NUCLEATED RED BLOOD CELLS 0 /100 WBC 0-0 (BEAKER) (test code = 413) NEUTROPHILS RELATIVE PERCENT 70 % (BEAKER) (test code = 429) LYMPHOCYTES RELATIVE PERCENT 21 % (BEAKER) (test code = 430) MONOCYTES RELATIVE PERCENT 5 % (BEAKER) (test code = 431) EOSINOPHILS RELATIVE PERCENT 3 % (BEAKER) (test code = 432) BASOPHILS RELATIVE PERCENT 0 % (BEAKER) (test code = 437) NEUTROPHILS ABSOLUTE COUNT 7.21 K/ L 1.56-6.13 H (BEAKER) (test code = 670) LYMPHOCYTES ABSOLUTE COUNT 2.18 K/ L 1.18-3.74 (BEAKER) (test code = 414) MONOCYTES ABSOLUTE COUNT (BEAKER) 0.55 K/ L 0.24-0.36 H (test code = 415) EOSINOPHILS ABSOLUTE COUNT 0.34 K/ L 0.04-0.36 (BEAKER) (test code = 416) BASOPHILS ABSOLUTE COUNT (BEAKER) 0.03 K/ L 0.01-0.08 (test code = 417) IMMATURE GRANULOCYTES-RELATIVE 1 % 0-1 PERCENT (BEAKER) (test code = 2801) POCT-GLUCOSE [id number] 00:31:54 Test Item Value Reference Range Interpretation Comments POC-GLUCOSE METER 96 mg/dL 70-110 : TESTED A T [facility] 6720 (BEAKER) (test code = [facility], 1538) [address]: Air Brush Operator/Techni daniel ID = [id number] for MIGUEL VALENCIA POCT-GLUCOSE [id number] 22:33:19 Test Item Value Reference Range Interpretation Comments POC-GLUCOSE METER 103 mg/dL 70-110 : TESTED A [facility] 6720 [facility] (test code = [facility], 1538) [address]: Air Brush Operator/Techni daniel ID = [id number] for MIGUEL VILLANUEVA POCT-GLUCOSE [id number] 17:39:03 Test Item Value Reference Range Interpretation Comments POC-GLUCOSE METER 65 mg/dL 70-110 L : Notified RN/MD: TEST[facility] (BEAKER) (test code = [facility] [address] [facility] 1538) [facility], 770 30: Air Brush Operator/Techni daniel ID = [id number] for ADRIÁN MarciaKWABENA PHENYTOIN LEVEL, [id number] 14:59:35 Test Item Value Reference Range Interpretation Comments PHENYTOIN (DILANTIN) (BEAKER) 20.6 ug/mL 10.0-20.0 H (test code = 605) Air Brush Operator ID - AC FLORES, ABDOMEN/KUB, 1 VIEW [id number] 12:59:00Reason for exam:->[facility] : 1965 Sex: FFINAL REPORT Abdomen x-ray Clinical Diagnosis: Corpak placementComparison: 08/19/2021Views: Two supine views of abdomen obtained Findings/impression:Nasogastric tube noted coursing below the diaphragm and curled within the stomach. Feeding tube identified coursing below the diaphragm with distal tip terminating within the gastric body/fundus. Visualized bowel gas pattern is nonspecific but appears nonobstructive. No intraperitoneal free air is appreciated on this supine view examination. No acute osseous abnormality is identified. Signed: Edwar Thayer Verified Date/Time: 08/20/2021 12:59:34 Reading Location: [address] Consult Reading Room POCT-GLUCOSE METER 2021-08-20 12:16:21 Test Item Value Reference Range Interpretation Comments POC-GLUCOSE METER 97 mg/dL 70-110 : TESTED A T [facility] 6720 ([employer]) (test code = [facility], 153) [address]: Air Brush Operator/Techni daniel ID = [id number] for KWABENA MENDOZA POCT-GLUCOSE [id number] 11:16:00 Test Item Value Reference Range Interpretation Comments POC-GLUCOSE METER 56 mg/dL 70-110 L : TESTED A T [facility] 6720 (BEAKER) (test code = [facility], 1538) [address]: Air Brush Operator/Techni daniel ID = [id number] for MICHAEL MENDIOLA POCT-GLUCOSE [id number] 07:13:57 Test Item Value Reference Range Interpretation Comments POC-GLUCOSE METER 103 mg/dL 70-110 : TESTED A T [facility] 6720 (BEAKER) (test code = [facility], 153) [address]: Air Brush Operator/Techni daniel ID = [id number] for MIGUEL VILLANUEVA POCT-GLUCOSE [id number] 06:22:57 Test Item Value Reference Range Interpretation Comments POC-GLUCOSE METER 52 mg/dL 70-110 L : TESTED A T [facility] 6720 (BEAKER) (test code = [place], 1538) [address]: Air Brush Operator/Techni daniel ID = [id number] for MIGUEL VALENCIA BASIC METABOLIC [id number] 05:20:43 Test Item Value Reference Range Interpretation Comments SODIUM (BEAKER) 133 meq/L 136-145 L (test code = 381) POTASSIUM (BEAKER) 3.1 meq/L 3.5-5.1 L (test code = 379) CHLORIDE (BEAKER) 103 meq/L 98-107 (test code = 382) CO2 (BEAKER) (test 18 meq/L 22-29 L code = 355) BLOOD UREA NITROGEN 28 mg/dL 7-21 H (BEAKER) (test code = 354) CREATININE (BEAKER) 9.32 mg/dL 0.57-1.25 H (test code = 358) GLUCOSE RANDOM 57 mg/dL 70-105 L (BEAKER) (test code = 652) CALCIUM (BEAKER) 8.0 mg/dL 8.4-10.2 L (test code = 697) EGFR (BEAKER) (test 5 mL/min/1.73 ESTIMAT ED GFR IS code = 1092) sq m NOT ACCURATE CREATININE CLEARANCE IN PREDICTING GLOMERULAR FILTRATION RATE . ESTIMATED GFR I S NOT APPLICABLE FOR DIALYSIS PATIEN TS. Air Brush Operator ID - BANDAR [id number] 05:13:27 Test Item Value Reference Range Interpretation Comments MAGNESIUM (BEAKER) (test code = 1.9 mg/dL 1.6-2.6 627) Air Brush Operator ID - BANDAR [id number] 05:13:27 Test Item Value Reference Range Interpretation Comments PHOSPHORUS (BEAKER) (test code = 2.5 mg/dL 2.3-4.7 604) Air Brush Operator ID - BANDAR MPTH, [id number] 05:10:33 Test Item Value Reference Range Interpretation Comments PARATHYROID HORMONE INTACT 172.7 pg/mL 8.5-72.5 H (BEAKER) (test code = 577) Air Brush Operator ID - BANDAR MBLOOD GAS, [id number] 04:57:07 Test Item Value Reference Range Interpretation Comments PH ARTERIAL (BEAKER) (test code = 7.54 7.35-7.45 H 383) PCO2 ARTERIAL (BEAKER) (test code 21 mm Hg 35-45 L = 384) PO2 ARTERIAL (BEAKER) (test code 203 mm Hg 80-90 H = 385) O2 SATURATION ARTERIAL (BEAKER) 99.5 % 96.0-97.0 H (test code = 386) HCO3 ARTERIAL (BEAKER) (test code 17 mmol/L 21-29 L = 388) BASE EXCESS ARTERIAL (BEAKER) -4.6 mmol/L -2.0-3.0 L (test code = 387) PATIENT TEMPERATURE (BEAKER) 37.0 (test code = 1818) FIO2 (BEAKER) (test code = 1819) 30.0 CBC W/PLT COUNT & AUTO [id number] 04:52:45 Test Item Value Reference Range Interpretation Comments WHITE BLOOD CELL COUNT (BEAKER) 9.8 K/ L 3.5-10.5 (test code = 775) RED BLOOD CELL COUNT (BEAKER) 2.62 M/ L 3.93-5.22 L (test code = 761) HEMOGLOBIN (BEAKER) (test code = 7.4 GM/DL 11.2-15.7 L 410) HEMATOCRIT (BEAKER) (test code = 23.0 % 34.1-44.9 L 411) MEAN CORPUSCULAR VOLUME (BEAKER) 87.8 fL 79.4-94.8 (test code = 753) MEAN CORPUSCULAR HEMOGLOBIN 28.2 pg 25.6-32.2 (BEAKER) (test code = 751) MEAN CORPUSCULAR HEMOGLOBIN CONC 32.2 GM/DL 32.2-35.5 (BEAKER) (test code = 752) RED CELL DISTRIBUTION WIDTH 17.6 % 11.7-14.4 H (BEAKER) (test code = 412) PLATELET COUNT (BEAKER) (test 212 K/CU MM 150-450 code = 756) MEAN PLATELET VOLUME (BEAKER) 10.9 fL 9.4-12.3 (test code = 754) NUCLEATED RED BLOOD CELLS 0 /100 WBC 0-0 (BEAKER) (test code = 413) NEUTROPHILS RELATIVE PERCENT 78 % (BEAKER) (test code = 429) LYMPHOCYTES RELATIVE PERCENT 14 % (BEAKER) (test code = 430) MONOCYTES RELATIVE PERCENT 6 % (BEAKER) (test code = 431) EOSINOPHILS RELATIVE PERCENT 1 % (BEAKER) (test code = 432) BASOPHILS RELATIVE PERCENT 0 % (BEAKER) (test code = 437) NEUTROPHILS ABSOLUTE COUNT 7.65 K/ L 1.56-6.13 H (BEAKER) (test code = 670) LYMPHOCYTES ABSOLUTE COUNT 1.40 K/ L 1.18-3.74 (BEAKER) (test code = 414) MONOCYTES ABSOLUTE COUNT (BEAKER) 0.60 K/ L 0.24-0.36 H (test code = 415) EOSINOPHILS ABSOLUTE COUNT 0.09 K/ L 0.04-0.36 (BEAKER) (test code = 416) BASOPHILS ABSOLUTE COUNT (BEAKER) 0.03 K/ L 0.01-0.08 (test code = 417) IMMATURE GRANULOCYTES-RELATIVE 1 % 0-1 PERCENT (BEAKER) (test code = 2801) POCT-GLUCOSE [id number] 19:16:36 Test Item Value Reference Range Interpretation Comments POC-GLUCOSE METER 87 mg/dL 70-110 : TESTED A T [facility] 6720 (BEAKER) (test code = [facility], 1538) [address]: Air Brush Operator/Techni daniel ID = [id number] for Step toe, Mary POCT-GLUCOSE [id number] 12:02:52 Test Item Value Reference Range Interpretation Comments POC-GLUCOSE METER 123 mg/dL 70-110 H : [facility] ([facility] (test code [facility] [address], = 1538) [facility] [address]: Air Brush Operator/Techni daniel ID = [id number] for Ali, Rosa RAD, ABDOMEN/KUB 1 VIEW [id number] 11:20:00Reason for exam:->Enteric tube placement verification [facility] : 1965 Sex: FFINAL REPORT EXAMINATION: RAD, ABDOMEN/KUB 1 VIEW AP, RAD, CHEST, 1 VIEW, NON DEPT. INDICATION: 56-year-old female status post enteric tube placement. COMPARISON: Chest radiograph dated 08/10/2020. FINDINGS: Chest:An endotracheal tube is noted terminating approximately 2.5 cm above the jonny. A right tunneled hemodialysis catheter is noted with tip overlying the mid right atrium. A left nontunneled central venous catheter is noted with tip overlying the right subclavian vein.The cardiac silhouette is normal in size. The thoracic vasculature is within normal limits. No evidence of consolidation. No pleural effusion. No pneumothorax. No acute osseous abnormality. Visualized soft tissues are unremarkable. Abdomen:Limited field of view, excluding the middle and lower abdomen.An enteric tube is noted in the stomach. IMPRESSION: Chest:1.Lines and tubes as above. Specifically,a left nontunneled central venous catheter is noted with tip overlying the right subclavian vein. Recommend nonemergent repositioning. Abdomen:1.Limited field of view, excluding the middle and lower abdomen. An enteric tube is noted in the stomach. Signed: Carmen Dacosta MDReport Verified Date/Time: 08/19/2021 11:20:09 Reading Location: [facility] Radiology Reading Room RAD, CHEST, 1 VIEW, NON [id number] 11:20:00Reason for exam:->ET [facility]CLAY[facility] SHARIF STRATTONENDOLYN CLIFF : 1965 Sex: FFINAL REPORT EXAMINATION: RAD, ABDOMEN/KUB 1 VIEW AP, RAD, CHEST, 1 VIEW, NON DEPT. INDICATION: 56-year-old female status post enteric tube placement. COMPARISON: Chest radiograph dated 08/10/2020. FINDINGS: Chest:An endotracheal tube is noted terminating approximately 2.5 cm above the jonny. A right tunneled hemodialysis catheter is noted with tip overlying the mid right atrium. A left nontunneled central venous catheter is noted with tip overlying the right subclavian vein.The cardiac silhouette is normal in size. The thoracic vasculature is within normal limits. No evidence of consolidation. No pleural effusion. No pneumothorax. No acute osseous abnormality. Visualized soft tissues are unremarkable. Abdomen:Limited field of view, excluding the middle and lower abdomen.An enteric tube is noted in the stomach. IMPRESSION: Chest:1.Lines and tubes as above. Specifically,a left nontunneled central venous catheter is noted with tip overlying the right subclavian vein. Recommend nonemergent repositioning. Abdomen:1.Limited field of view, excluding the middle and lower abdomen. An enteric tube is noted in the stomach. Signed: Carmen Dacosta MDReport Verified Date/Time: 08/19/2021 11:20:09 Reading Location: [facility] Radiology Reading Room SARS-CoV2/RT-PCR (Asymptomatic ONLY)2021-08-19 10:42:27 Test Item Value Reference Interpretation Comments Range SARS-COV2/RT-PCR Negative Negative The SARS-Co V-2 (test code = target nucleic 66295-3) acids are not detected in thi s specimen. Negat arcadio results do not preclude SARS-C oV-2 infection and should not be u sed as the sole bas is for patient management decisions. Nega tive results must be combined with clinical observations, patient history , and epidemiolog ical information. A false negative result may occu r if a specimen is improperly collected, transported or handled. This S ARS CoV-2 test is a rapid, real-darek e RT-PCR test intended for th e qualitative detection of nucleic acid fr om SARS-CoV-2 in a nasopharyngeal swab specimen collec sally from individual s suspected of COVID-19 by the ir healthcare provider. CECELIA (test code = This test has been CECELIA) authorized by FDA under an EUA for use by authorized laboratories. This test is only authorized for the duration of the declaration that circumstances exist justifying the authorization of emergency use of in vitro diagnostic tests for detection and/or diagnosis of COVID-19 under Section 564(b)(1) of the Federal Food, Drug and Cosmetic Act, 21 U.S.C. 360bbb-3(b)(1), unless the authorization is terminated or revoked sooner. Fact Sheet for Healthcare Providers: https://www.[employer]/Documents/Xp ert%20Xpress%20SAR S%20CoV-2/Fact%20S heets/302-3802%20S ARS-COV-2%20HEALTH CARE%20PROVIDERS%2 0FACT%20SHEET.pdf Fact Sheet for Healthcare Patients: https://wwwKnotice/Documents/Xp ert%20Xpress%20SAR S%20CoV-2/Fact%20S heets/302-3801%20S ARS-COV-2%20PATIEN T%20FACT%20SHEET.p df Lab Interpretation Normal (test code = 66110-4) [facility]2021-08-19 10:42:27 Test Item Value Reference Interpretation Comments Range SARS-COV2/RT-PCR Negative Negative The SARS-Co V-2 (test code = target nucleic 57153-6) acids are not detected in thi s specimen. Negat arcadio results do not preclude SARS-C oV-2 infection and should not be u sed as the sole bas is for patient management decisions. Nega tive results must be combined with clinical observations, patient history , and epidemiolog ical information. A false negative result may occu r if a specimen is improperly collected, transported or handled. This S ARS CoV-2 test is a rapid, real-darek e RT-PCR test intended for th e qualitative detection of nucleic acid fr om SARS-CoV-2 in a nasopharyngeal swab specimen collec sally from individual s suspected of COVID-19 by the ir healthcare provider. CECELIA (test code = This test has been CECELIA) authorized by FDA under an EUA for use by authorized laboratories. This test is only authorized for the duration of the declaration that circumstances exist justifying the authorization of emergency use of in vitro diagnostic tests for detection and/or diagnosis of COVID-19 under Section 564(b)(1) of the Federal Food, Drug and Cosmetic Act, 21 U.S.C. 360bbb-3(b)(1), unless the authorization is terminated or revoked sooner. Fact Sheet for Healthcare Providers: https://www.[employer]/Documents/Xp ert%20Xpress%20SAR S%20CoV-2/Fact%20S heets/302-3802%20S ARS-COV-2%20HEALTH CARE%20PROVIDERS%2 0FACT%20SHEET.pdf Fact Sheet for Healthcare Patients: https://www.[employer]/Documents/Xp ert%20Xpress%20SAR S%20CoV-2/Fact%20S heets/302-3801%20S ARS-COV-2%20PATIEN T%20FACT%20SHEET.p df Lab Interpretation Normal (test code = 84636-0) [facility]2021-08-19 10:42:27 Test Item Value Reference Range Interpretation Comments SARS-COV2/RT-PCR Negative Negative The SARS-Co V-2 target (test code = nucleic acids a re not 3456001) detected in thi s specimen. Negative result s do not preclude SARS-C oV-2 infection and s hould not be used as the nataly e basis for patient managem ent decisions. Nega tive results must be combine d with clinical observ ations, patient history , and epidemiological information. A false negativ e result may occur if a spec imen is improperly ruiz ected, transported or handled. This SARS CoV-2 test is a rapid, real-time RT-PC R test intended for th e qualitative detection of nu cleic acid from SARS-CoV-2 in a nasopharyngeal swab specimen collected from individuals suspected of CO VID-19 by their healthcar e provider. This test has been authorized by FDA under an EUA for use by authorized laboratories. This test is only authorized for the duration of the declaration that circumstances exist justifying the authorization of emergency use of in vitro diagnostic tests for detection and/or diagnosis of COVID-19 under Section 564(b)(1) of the Federal Food, Drug and Cosmetic Act, 21 U.S.C. 360bbb-3(b)(1), unless the authorization is terminated or revoked sooner. Fact Sheet for Healthcare Providers: https://www.[employer]/Documents/Xpert%20Xpress%20SARS%20CoV-2/Fact%20Sheets/302-3802%36ZLCE-LOO-0%20 HEALTHCARE%20PROVIDERS%20FACT%20SHEET.pdf Fact Sheet for Healthcare Patients: https://www.[employer]/Documents/Xpert%20Xp ress%20SARS%20CoV-2/Fact%20Sheets/302-3801%92EGCI-RLH-1%20PATIENT%20FACT%20SHEET .pdfBLOOD GAS, [id number] 09:40:43 Test Item Value Reference Range Interpretation Comments PH ARTERIAL (BEAKER) (test code = 7.44 7.35-7.45 383) PCO2 ARTERIAL (BEAKER) (test code 32 mm Hg 35-45 L = 384) PO2 ARTERIAL (BEAKER) (test code 569 mm Hg 80-90 H = 385) O2 SATURATION ARTERIAL (BEAKER) 99.9 % 96.0-97.0 H (test code = 386) HCO3 ARTERIAL (BEAKER) (test code 21 mmol/L 21-29 = 388) BASE EXCESS ARTERIAL (BEAKER) -2.6 mmol/L -2.0-3.0 L (test code = 387) PATIENT TEMPERATURE (BEAKER) 37.0 (test code = 1818) FIO2 (BEAKER) (test code = 1819) 100.0 POCT-GLUCOSE [id number] 08:21:17 Test Item Value Reference Range Interpretation Comments POC-GLUCOSE METER 125 mg/dL 70-110 H : TESTED A T [facility] [address] (BEAKER) (test code [facility] [address], = [address]) [place] [id number]: Air Brush Operator/Techni daniel ID = [id number] for Rosa Steward POCT-GLUCOSE [id number] 06:20:10 Test Item Value Reference Range Interpretation Comments POC-GLUCOSE METER 102 mg/dL 70-110 : TESTED A T [facility] [address] (BEAKER) (test code [address], = 1538) [facility] [place] [address]: Air Brush Operator/Techni daniel ID = [id number] for Garc ia, Mi BASIC METABOLIC [id number] 04:52:02 Test Item Value Reference Range Interpretation Comments SODIUM (BEAKER) 133 meq/L 135-148 L (test code = 381) POTASSIUM (BEAKER) 3.5 meq/L 3.6-5.5 L Specimen slightly (test code = 379) hemolyzed CHLORIDE (BEAKER) 102 meq/L 98-106 (test code = 382) CO2 (BEAKER) (test 15 meq/L 20-29 L code = 355) BLOOD UREA NITROGEN 18 mg/dL 10-26 (BEAKER) (test code = 354) CREATININE (BEAKER) 8.42 mg/dL 0.50-1.20 H Specimen slightly (test code = 358) hemolyzed GLUCOSE RANDOM 55 mg/dL 70-110 L (BEAKER) (test code = 652) CALCIUM (BEAKER) 7.7 mg/dL 8.5-10.5 L (test code = 697) EGFR (BEAKER) (test 6 mL/min/1.73 ESTIMAT ED GFR IS code = 1092) sq m NOT ACCURATE CREATININE CLEARANCE IN PREDICTING GLOMERULAR FILTRATION RATE . ESTIMATED GFR I S NOT APPLICABLE FOR DIALYSIS PATIEN TS. Air Brush Operator ID - [id number] ID - [id number] ID - [id number] ID - [id number] ID - [id number] ID - bawe14Cdbojxte ID - uvth50Kojbccpv ID - luqj43Yhvnelhz ID - mxgs26Rdxyqvpf ID - zxaf03Ywdkhhia ID - ikfr74Ivhseoqi ID - pxna90Ehaxmawr ID - [id number] W/PLT COUNT & AUTO [id number] 04:27:22 Test Item Value Reference Range Interpretation Comments WHITE BLOOD CELL COUNT (BEAKER) 8.2 K/ L 4.0-10.0 (test code = 775) RED BLOOD CELL COUNT (BEAKER) 2.99 M/ L 4.00-5.00 L (test code = 761) HEMOGLOBIN (BEAKER) (test code = 8.8 GM/DL 12.0-15.5 L 410) HEMATOCRIT (BEAKER) (test code = 26.2 % 36.0-46.0 L 411) MEAN CORPUSCULAR VOLUME (BEAKER) 87.6 fL 82.0-99.0 (test code = 753) MEAN CORPUSCULAR HEMOGLOBIN 29.4 pg 27.0-33.0 (BEAKER) (test code = 751) MEAN CORPUSCULAR HEMOGLOBIN CONC 33.6 GM/DL 32.0-36.0 (BEAKER) (test code = 752) RED CELL DISTRIBUTION WIDTH 17.4 % 12.0-15.0 H (BEAKER) (test code = 412) PLATELET COUNT (BEAKER) (test 340 K/CU MM 150-430 code = 756) MEAN PLATELET VOLUME (BEAKER) 11.2 fL 6.0-11.5 (test code = 754) NUCLEATED RED BLOOD CELLS 0 /100 WBC 0-0 (BEAKER) (test code = 413) NEUTROPHILS RELATIVE PERCENT 84 % (BEAKER) (test code = 429) LYMPHOCYTES RELATIVE PERCENT 8 % (BEAKER) (test code = 430) MONOCYTES RELATIVE PERCENT 7 % (BEAKER) (test code = 431) EOSINOPHILS RELATIVE PERCENT 0 % (BEAKER) (test code = 432) BASOPHILS RELATIVE PERCENT 1 % (BEAKER) (test code = 437) NEUTROPHILS ABSOLUTE COUNT 6.88 K/ L 1.80-8.00 (BEAKER) (test code = 670) LYMPHOCYTES ABSOLUTE COUNT 0.62 K/ L 1.48-4.50 L (BEAKER) (test code = 414) MONOCYTES ABSOLUTE COUNT (BEAKER) 0.60 K/ L 0.00-1.30 (test code = 415) EOSINOPHILS ABSOLUTE COUNT 0.02 K/ L 0.00-0.50 (BEAKER) (test code = 416) BASOPHILS ABSOLUTE COUNT (BEAKER) 0.04 K/ L 0.00-0.20 (test code = 417) IMMATURE GRANULOCYTES-RELATIVE 1 % 0-0 H PERCENT (BEAKER) (test code = 2801) POCT-GLUCOSE [id number] 21:18:21 Test Item Value Reference Range Interpretation Comments POC-GLUCOSE METER 71 mg/dL 70-110 : TESTED A T [facility] [address] (BEAKER) (test code = [address], [address]) [facility] [address] 478: Air Brush Operator/Techni daniel ID = [id number] for Maggie Hess [id number] 18:25:36 Test Item Value Reference Range Interpretation Comments MAGNESIUM (BEAKER) (test code = 1.8 mg/dL 1.5-3.0 627) Air Brush Operator ID - [id number], BRAIN, WITHOUT [id number] 16:05:00Unlisted Reason for Exam - Click Yes and Enter Reason Below->No [facility] : 1965 Sex: FFINAL REPORT CT, BRAIN, WITHOUT CONTRAST CLINICAL INDICATION: Altered mentalstatus COMPARISON: 10/28/2018 TECHNIQUE: Noncontrast axial CT imaging of the brain and skull. DOSE REDUCTION: Dose modulation, iterative reconstruction, and/or weight-based adjustment of the mA/kV was utilized to reduce the radiation dose to as low as reasonably achievable. FINDINGS:Remote ischemic, metabolic and/or toxic insult to the globus pallidus is demonstrated. No acute intracranial hemorrhage, midline shift or mass effect. Midline structures are normally developed. Scattered foci of hypoattenuation are present throughout the periventricular and subcortical white matter, and, although nonspecific by imaging, statistically represent mild chronic microvascular ischemic changes in this age group. No hydrocephalus. Orbits are within normal limits. Prior right lens surgery. Atherosclerotic calcification of the intracranial internal carotid and vertebral arteries. No obstructive paranasal sinus disease. IMPRESSION: 1.No acute intracranial findings.2.Remote ischemic, metabolic and/or toxic insultto the globus pallidus is demonstrated. If there is persistent clinical concern for intracranial pathology, MR examination is recommended for further characterization. Signed: Ruth Benítez Verified Date/Time: 08/18/2021 16:05:59 MR, BRAIN, WITHOUT [id number] 15:48:00Unlisted Reason for Exam - Click Yes and Enter Reason Below->NoDoes the patient have an implantedelectronic device?->No [facility] [place] : 1965 Sex: FFINAL REPORT MR, BRAIN, WITHOUT CONTRAST INDICATION: Seizure, abnormal neuroexam TECHNIQUE: Multiplanar, multisequence MR imaging of the brain was obtained. COMPARISON: None FINDINGS:Brain parenchyma is normal in morphology. Volume loss is present lobe pallidus bilaterally, suggestive of remote metabolic and/or toxic injury (such as carbon monoxide).No restricted diffusion tosuggest recent ischemic insult. No abnormal susceptibility. Scattered T2/FLAIR hyperintense foci within the periventricular and subcortical white matter are nonspecific, however, statistically represent chronic microvascular ischemic changes. No hydrocephalus. Orbits are within normal limits. No obstructive paranasal sinus disease. IMPRESSION: Volume loss is present lobe pallidus bilaterally, suggestive of remote metabolic and/or toxic injury (such as carbon monoxide).Otherwise, no acute intracranial findings. Signed: Ruth Benítez Verified Date/Time: 08/18/2021 15:48:54 POCT-GLUCOSE [id number] 10:47:44 Test Item Value Reference Range Interpretation Comments POC-GLUCOSE METER 87 mg/dL 70-110 : TESTED A T [facility] [address] (BEAKER) (test code = [address], [address]) [facility] [place] [address]: Air Brush Operator/Techni daniel ID = [id number] for Yanni Brooks COMPREHENSIVE METABOLIC [id number] 10:20:59 Test Item Value Reference Range Interpretation Comments TOTAL PROTEIN 4.7 gm/dL 6.0-8.5 L (BEAKER) (test code = 770) ALBUMIN (BEAKER) 1.8 g/dL 3.5-5.0 L (test code = 1145) ALKALINE PHOSPHATASE 88 U/L 30-115 (BEAKER) (test code = 346) BILIRUBIN TOTAL 0.3 mg/dL 0.1-1.2 (BEAKER) (test code = 377) SODIUM (BEAKER) (test 133 meq/L 135-148 L code = 381) POTASSIUM (BEAKER) 2.5 meq/L 3.6-5.5 LL (test code = 379) CHLORIDE (BEAKER) 99 meq/L 98-106 (test code = 382) CO2 (BEAKER) (test 24 meq/L 20-29 code = 355) BLOOD UREA NITROGEN 15 mg/dL 10-26 (BEAKER) (test code = 354) CREATININE (BEAKER) 7.65 mg/dL 0.50-1.20 H (test code = 358) GLUCOSE RANDOM 83 mg/dL 70-110 (BEAKER) (test code = 652) CALCIUM (BEAKER) 7.2 mg/dL 8.5-10.5 L (test code = 697) AST (SGOT) (BEAKER) 7 U/L 5-40 (test code = 353) ALT (SGPT) (BEAKER) < U/L 5-50 L (test code = 347) EGFR (BEAKER) (test 7 mL/min/1.73 ESTIMAT ED GFR IS code = 1092) sq m NOT ACCURATE CREATININE CLEARANCE IN PREDICTING GLOMERULAR FILTRATION RATE . ESTIMATED GFR I S NOT APPLICABLE FOR DIALYSIS PATIEN TS. Air Brush Operator ID - DSENSONOperator ID - DSENSONOperator ID - DSENSONOperator ID - DSENSONOperator ID - DSENSONOperator ID - DSENSONOperator ID - DSENSONOperator ID - DSENSONOperator ID - DSENSONOperator ID - DSENSONOperator ID - DSENSONOperator ID - DSENSONOperator ID - DSENSONOperator ID - DSENSONOperatorID - DSENSONOperator ID - DSENSONOperator ID - DSENSONOperator ID - DSENSONOperator ID - DSENSONCBC W/PLT COUNT & AUTO [id number] 10:04:14 Test Item Value Reference Range Interpretation Comments WHITE BLOOD CELL COUNT (BEAKER) 7.0 K/ L 4.0-10.0 (test code = 775) RED BLOOD CELL COUNT (BEAKER) 2.85 M/ L 4.00-5.00 L (test code = 761) HEMOGLOBIN (BEAKER) (test code = 8.3 GM/DL 12.0-15.5 L 410) HEMATOCRIT (BEAKER) (test code = 24.8 % 36.0-46.0 L 411) MEAN CORPUSCULAR VOLUME (BEAKER) 87.0 fL 82.0-99.0 (test code = 753) MEAN CORPUSCULAR HEMOGLOBIN 29.1 pg 27.0-33.0 (BEAKER) (test code = 751) MEAN CORPUSCULAR HEMOGLOBIN CONC 33.5 GM/DL 32.0-36.0 (BEAKER) (test code = 752) RED CELL DISTRIBUTION WIDTH 17.1 % 12.0-15.0 H (BEAKER) (test code = 412) PLATELET COUNT (BEAKER) (test 321 K/CU MM 150-430 code = 756) MEAN PLATELET VOLUME (BEAKER) 10.6 fL 6.0-11.5 (test code = 754) NUCLEATED RED BLOOD CELLS 0 /100 WBC 0-0 (BEAKER) (test code = 413) NEUTROPHILS RELATIVE PERCENT 83 % (BEAKER) (test code = 429) LYMPHOCYTES RELATIVE PERCENT 10 % (BEAKER) (test code = 430) MONOCYTES RELATIVE PERCENT 5 % (BEAKER) (test code = 431) EOSINOPHILS RELATIVE PERCENT 1 % (BEAKER) (test code = 432) BASOPHILS RELATIVE PERCENT 0 % (BEAKER) (test code = 437) NEUTROPHILS ABSOLUTE COUNT 5.86 K/ L 1.80-8.00 (BEAKER) (test code = 670) LYMPHOCYTES ABSOLUTE COUNT 0.73 K/ L 1.48-4.50 L (BEAKER) (test code = 414) MONOCYTES ABSOLUTE COUNT (BEAKER) 0.32 K/ L 0.00-1.30 (test code = 415) EOSINOPHILS ABSOLUTE COUNT 0.07 K/ L 0.00-0.50 (BEAKER) (test code = 416) BASOPHILS ABSOLUTE COUNT (BEAKER) 0.03 K/ L 0.00-0.20 (test code = 417) IMMATURE GRANULOCYTES-RELATIVE 0 % 0-0 PERCENT (BEAKER) (test code = 2801) POCT-GLUCOSE [id number] 09:00:00 Test Item Value Reference Range Interpretation Comments POC-GLUCOSE METER 101 mg/dL 70-110 : TESTED A T [facility] [address] (BEAKER) (test code [address], = 1538) [place] [id number]: Air Brush Operator/Techni daniel ID = [id number] for Tisha Tobias POCT-GLUCOSE [id number] 17:42:08 Test Item Value Reference Range Interpretation Comments POC-GLUCOSE METER 81 mg/dL 70-110 : TESTED A T [facility] [address] (BEAKER) (test code = [address], [address]) [place] [id number]: Air Brush Operator/Techni daniel ID = [id number] for Shaun s Yanni POCT-GLUCOSE [id number] 12:45:03 Test Item Value Reference Range Interpretation Comments POC-GLUCOSE METER 79 mg/dL 70-110 : TESTED A T [facility] [address] (BEAKER) (test code = [address], [address]) [place] [address]: Air Brush Operator/Techni daniel ID = [id number] for Shaun s, Yanni POCT-GLUCOSE [id number] 10:51:04 Test Item Value Reference Range Interpretation Comments POC-GLUCOSE METER 63 mg/dL 70-110 L : TESTED A T [facility] [address] (BEAKER) (test code = [address], [address]) [place] [address]: Air Brush Operator/Techni daniel ID = [id number] for Andi Richey COMPREHENSIVE METABOLIC [id number] 06:32:44 Test Item Value Reference Range Interpretation Comments TOTAL PROTEIN 5.0 gm/dL 6.0-8.5 L Specimen sligh tly (BEAKER) (test code = hemoly zed 770) ALBUMIN (BEAKER) 1.8 g/dL 3.5-5.0 L Specimen sl ightly (test code = 1145) hemolyzed ALKALINE PHOSPHATASE 92 U/L 30-115 (BEAKER) (test code = 346) BILIRUBIN TOTAL 0.4 mg/dL 0.1-1.2 Specimen sli ghtly (BEAKER) (test code = hemoly zed 377) SODIUM (BEAKER) (test 132 meq/L 135-148 L code = 381) POTASSIUM (BEAKER) 3.3 meq/L 3.6-5.5 L Specimen slightly (test code = 379) hemolyzed CHLORIDE (BEAKER) 99 meq/L 98-106 (test code = 382) CO2 (BEAKER) (test 18 meq/L 20-29 L code = 355) BLOOD UREA NITROGEN 30 mg/dL 10-26 H (BEAKER) (test code = 354) CREATININE (BEAKER) 12.03 mg/dL 0.50-1.20 H Specimen slightly (test code = 358) hemolyzed GLUCOSE RANDOM 70 mg/dL 70-110 (BEAKER) (test code = 652) CALCIUM (BEAKER) 7.5 mg/dL 8.5-10.5 L (test code = 697) AST (SGOT) (BEAKER) 8 U/L 5-40 Specimen slightly (test code = 353) hemolyzed ALT (SGPT) (BEAKER) < U/L 5-50 L Specimen slightly (test code = 347) hemolyzed EGFR (BEAKER) (test 4 mL/min/1.73 ESTIMAT ED GFR IS code = 1092) sq m NOT ACCURATE CREATININE CLEARANCE IN PREDICTING GLOMERULAR FILTRATION RATE . ESTIMATED GFR I S NOT APPLICABLE FOR DIALYSIS PATIEN TS. Air Brush Operator ID - [id number] ID - [id number] ID - qqmt77Rmpmcmhs ID - nxrh67Ohhrzzsa ID - ghqk68Rzsoslvy ID - onag77Ascahlnw ID - jcvd19Chxwpoyr ID - rqfa30Xwjirsbe ID - vzdz00Huyhybov ID - lreh15Huffdbmo ID - gumw01Xiszgsvk ID - kbzn13Dpzpvcka ID - zkur50Nvufifwo ID - trwg10Libdwzvg ID - bwdb73Pdwsyenm ID - [id number] 06:29:37 Test Item Value Reference Range Interpretation Comments MAGNESIUM (BEAKER) 1.8 mg/dL 1.5-3.0 Specimen slightly (test code = 627) hemolyzed Air Brush Operator ID - [id number] ID - bzqx05Gzuqpkpz ID - pauu99Ybozxowz ID - [id number] CBC W/PLT COUNT & AUTO [id number] 05:55:19 Test Item Value Reference Range Interpretation Comments WHITE BLOOD CELL COUNT (BEAKER) 6.9 K/ L 4.0-10.0 (test code = 775) RED BLOOD CELL COUNT (BEAKER) 3.14 M/ L 4.00-5.00 L (test code = 761) HEMOGLOBIN (BEAKER) (test code = 9.2 GM/DL 12.0-15.5 L 410) HEMATOCRIT (BEAKER) (test code = 27.4 % 36.0-46.0 L 411) MEAN CORPUSCULAR VOLUME (BEAKER) 87.3 fL 82.0-99.0 (test code = 753) MEAN CORPUSCULAR HEMOGLOBIN 29.3 pg 27.0-33.0 (BEAKER) (test code = 751) MEAN CORPUSCULAR HEMOGLOBIN CONC 33.6 GM/DL 32.0-36.0 (BEAKER) (test code = 752) RED CELL DISTRIBUTION WIDTH 17.2 % 12.0-15.0 H (BEAKER) (test code = 412) PLATELET COUNT (BEAKER) (test 335 K/CU MM 150-430 code = 756) MEAN PLATELET VOLUME (BEAKER) 11.9 fL 6.0-11.5 H (test code = 754) NUCLEATED RED BLOOD CELLS 1 /100 WBC 0-0 H (BEAKER) (test code = 413) NEUTROPHILS RELATIVE PERCENT 81 % (BEAKER) (test code = 429) LYMPHOCYTES RELATIVE PERCENT 12 % (BEAKER) (test code = 430) MONOCYTES RELATIVE PERCENT 5 % (BEAKER) (test code = 431) EOSINOPHILS RELATIVE PERCENT 1 % (BEAKER) (test code = 432) BASOPHILS RELATIVE PERCENT 0 % (BEAKER) (test code = 437) NEUTROPHILS ABSOLUTE COUNT 5.62 K/ L 1.80-8.00 (BEAKER) (test code = 670) LYMPHOCYTES ABSOLUTE COUNT 0.80 K/ L 1.48-4.50 L (BEAKER) (test code = 414) MONOCYTES ABSOLUTE COUNT (BEAKER) 0.35 K/ L 0.00-1.30 (test code = 415) EOSINOPHILS ABSOLUTE COUNT 0.08 K/ L 0.00-0.50 (BEAKER) (test code = 416) BASOPHILS ABSOLUTE COUNT (BEAKER) 0.03 K/ L 0.00-0.20 (test code = 417) IMMATURE GRANULOCYTES-RELATIVE 1 % 0-0 H PERCENT (BEAKER) (test code = 2801) ANG, TUNNELED CATHETER [id number] 10:38:00Reason for Central Line/PICC?->Need for hemodialysis accessReason for exam:->esrd [facility] : 1965 Sex: FFINAL REPORT INSERTION OF TUNNELED DIALYSIS CATHETER, UNDER FLUOROSCOPY History provided: Renal failure PROCEDURE: Informed consent was obtained. Patient's medication list was reviewed. Timeout procedure was performed. All elements of strict sterile barrier were employed, including cap, mask, sterile gloves, and sterile drape. Skin was prepped with ChloraPrep. 1% Xylocaine anes thesia utilized. No conscious sedation employed. Ultrasound evaluation of potential access sites wasperformed. Sterile ultrasound techniques were employed, including sterile gel and sterile probe cover. After successfully identifying a patent right internal jugular vein , real-time ultrasound guidance was used to puncture the vessel. A permanent recording was created for the patient's record. Over aguidewire, dilatation was performed with placement of a large peel-away sheath. A 23 cm tip to cuff catheter was tunneled from a right anterior chest wall site and brought out adjacent to the peel-awaysheath. The catheter was inserted down the peel-away sheath, which was then removed. Spot film confirms excellent catheter tip position at the right atrium. Neck puncture site closed with 3-0 Monocryl suture. Catheter secured at the exit site with 2-0 silk suture. Sterile dressing applied. Catheter packed with heparin. Catheter is ready for immediate use. Fluoroscopy time: 0.5 minutes Number of exposures performed: One Radiation dose (Ka,r): 3 mGy Signed: Junito Mayberry [facility] Verified Date/Time: 08/16/2021 10:38:20 Reading Location: [facility] Radiology Reading Room REHENSIVE METABOLIC [id number] 05:55:05 Test Item Value Reference Range Interpretation Comments TOTAL PROTEIN 4.8 gm/dL 6.0-8.5 L (BEAKER) (test code = 770) ALBUMIN (BEAKER) 1.8 g/dL 3.5-5.0 L (test code = 1145) ALKALINE PHOSPHATASE 84 U/L 30-115 (BEAKER) (test code = 346) BILIRUBIN TOTAL 0.3 mg/dL 0.1-1.2 (BEAKER) (test code = 377) SODIUM (BEAKER) (test 133 meq/L 135-148 L code = 381) POTASSIUM (BEAKER) 2.4 meq/L 3.6-5.5 LL (test code = 379) CHLORIDE (BEAKER) 99 meq/L 98-106 (test code = 382) CO2 (BEAKER) (test 19 meq/L 20-29 L code = 355) BLOOD UREA NITROGEN 31 mg/dL 10-26 H (BEAKER) (test code = 354) CREATININE (BEAKER) 8.46 mg/dL 0.50-1.20 H (test code = 358) GLUCOSE RANDOM 77 mg/dL 70-110 (BEAKER) (test code = 652) CALCIUM (BEAKER) 7.3 mg/dL 8.5-10.5 L (test code = 697) AST (SGOT) (BEAKER) 7 U/L 5-40 (test code = 353) ALT (SGPT) (BEAKER) 3 U/L 5-50 L (test code = 347) EGFR (BEAKER) (test 6 mL/min/1.73 ESTIMAT ED GFR IS code = 1092) sq m NOT ACCURATE CREATININE CLEARANCE IN PREDICTING GLOMERULAR FILTRATION RATE . ESTIMATED GFR I S NOT APPLICABLE FOR DIALYSIS PATIEN TS. Air Brush Operator ID - LITOOperator ID - LITOOperator ID - LITOOperator ID - LITOOperator ID - LITOOperator ID - LITOOperator ID - LITOOperator ID - LITOOperator ID - LITOOperator ID - LITOOperator ID - LITOOperator ID - LITOOperator ID - LITOOperator ID - LITOOperator ID - LITOOperator ID - [id number] 05:48:01 Test Item Value Reference Range Interpretation Comments MAGNESIUM (BEAKER) (test code = 1.6 mg/dL 1.5-3.0 627) Air Brush Operator ID - LITOOperator ID - LITOOperator ID - LITOOperator ID - LITOCBC W/PLT COUNT & AUTO [id number] 05:28:26 Test Item Value Reference Range Interpretation Comments WHITE BLOOD CELL COUNT (BEAKER) 5.8 K/ L 4.0-10.0 (test code = 775) RED BLOOD CELL COUNT (BEAKER) 3.03 M/ L 4.00-5.00 L (test code = 761) HEMOGLOBIN (BEAKER) (test code = 8.9 GM/DL 12.0-15.5 L 410) HEMATOCRIT (BEAKER) (test code = 27.5 % 36.0-46.0 L 411) MEAN CORPUSCULAR VOLUME (BEAKER) 90.8 fL 82.0-99.0 (test code = 753) MEAN CORPUSCULAR HEMOGLOBIN 29.4 pg 27.0-33.0 (BEAKER) (test code = 751) MEAN CORPUSCULAR HEMOGLOBIN CONC 32.4 GM/DL 32.0-36.0 (BEAKER) (test code = 752) RED CELL DISTRIBUTION WIDTH 17.3 % 12.0-15.0 H (BEAKER) (test code = 412) PLATELET COUNT (BEAKER) (test 303 K/CU MM 150-430 code = 756) MEAN PLATELET VOLUME (BEAKER) 11.5 fL 6.0-11.5 (test code = 754) NUCLEATED RED BLOOD CELLS 1 /100 WBC 0-0 H (BEAKER) (test code = 413) NEUTROPHILS RELATIVE PERCENT 67 % (BEAKER) (test code = 429) LYMPHOCYTES RELATIVE PERCENT 17 % (BEAKER) (test code = 430) MONOCYTES RELATIVE PERCENT 10 % (BEAKER) (test code = 431) EOSINOPHILS RELATIVE PERCENT 4 % (BEAKER) (test code = 432) BASOPHILS RELATIVE PERCENT 1 % (BEAKER) (test code = 437) NEUTROPHILS ABSOLUTE COUNT 3.90 K/ L 1.80-8.00 (BEAKER) (test code = 670) LYMPHOCYTES ABSOLUTE COUNT 0.99 K/ L 1.48-4.50 L (BEAKER) (test code = 414) MONOCYTES ABSOLUTE COUNT (BEAKER) 0.60 K/ L 0.00-1.30 (test code = 415) EOSINOPHILS ABSOLUTE COUNT 0.24 K/ L 0.00-0.50 (BEAKER) (test code = 416) BASOPHILS ABSOLUTE COUNT (BEAKER) 0.05 K/ L 0.00-0.20 (test code = 417) IMMATURE GRANULOCYTES-RELATIVE 0 % 0-0 PERCENT (BEAKER) (test code = 2801) GI Pathogen Profile by PCR-ID [id number] 18:38:44 Test Item Value Reference Range Interpretation Comments CAMPYLOBACTER (PCR) Not detected Not detected (test code = 78312-9) PLESIOMONAS SHIGELLOIDES Not detected Not detected (PCR) (test code = 44205-1) SALMONELLA (PCR) (test Not detected Not detected code = 12308-6) YERSINIA ENTEROCOLITICA Not detected Not detected (PCR) (test code = 45305-1) VIBRIO CHOLERAE (PCR) Not detected Not detected (test code = 20141-9) ENTEROAGGREGATIVE E. Not detected Not detected COLI (EAEC) BY PCR (test code = 50739-9) ENTEROPATHOGENIC E. COLI Not detected Not detected (EPEC) BY PCR (test code = 89814-2) ENTEROTOXIGENIC E. COLI Not detected Not detected (ETEC) LT/ST BY PCR (test code = 90690-6) SHIGA-LIKE Not detected Not detected TOXIN-PRODUCING E. COLI (STEC) STX1/STX2 (test code = 00199-7) E. COLI O157 (PCR) (test code = 73235-2) SHIGELLA/ENTEROINVASIVE Not detected Not detected E. COLI (EIEC) BY PCR (test code = 03645-8) CRYPTOSPORIDIUM (PCR) Not detected Not detected (test code = 41085-2) CYCLOSPORA CAYETANENSIS Not detected Not detected (PCR) (test code = 44013-3) ENTAMOEBA HISTOLYTICA Not detected Not detected (PCR) (test code = 11444-3) GIARDIA LAMBLIA (PCR) Not detected Not detected (test code = 91044-5) ADENOVIRUS F 40/41 (PCR) Not detected Not detected (test code = 22965-3) ASTROVIRUS (PCR) (test Not detected Not detected code = 43455-9) NOROVIRUS GI/GII (PCR) Not detected Not detected (test code = 97406-7) ROTAVIRUS A (PCR) (test Not detected Not detected code = 00738-9) SAPOVIRUS (I, II, IV, V) Not detected Not detected BY PCR (test code = 91369-6) VIBRIO Not detected Not detected (PARAHAEMOLYTICUS, VULNIFICUS) (test code = 52686-0) CECELIA (test code = CECELIA) Other viruses, parasites and bacteria not targeted by this PCR panel cannot be excluded; therefore clinical correlation and follow up of serology, culture results, and other molecular studies is required. The results are not intended to be used as the sole means for clinical diagnosis or patient management decisions. This sample was tested at the [facility] Molecular Diagnostics Laboratory using the [employer] Gastrointestinal Panel. It is FDA cleared and has been verified and approved by the [facility] Molecular Diagnostics Laboratory for clinical use. This laboratory is CLIA-certified and [employer] (CAP)-accredited to perform high complexity testing. [facility] by PCR-ID [id number] 18:38:44 Test Item Value Reference Range Interpretation Comments CAMPYLOBACTER (PCR) Not detected Not detected (test code = 75674-3) PLESIOMONAS SHIGELLOIDES Not detected Not detected (PCR) (test code = 57061-5) SALMONELLA (PCR) (test Not detected Not detected code = 37948-0) YERSINIA ENTEROCOLITICA Not detected Not detected (PCR) (test code = 57240-5) VIBRIO CHOLERAE (PCR) Not detected Not detected (test code = 70941-3) ENTEROAGGREGATIVE E. Not detected Not detected COLI (EAEC) BY PCR (test code = 09505-1) ENTEROPATHOGENIC E. COLI Not detected Not detected (EPEC) BY PCR (test code = 48908-0) ENTEROTOXIGENIC E. COLI Not detected Not detected (ETEC) LT/ST BY PCR (test code = 72543-2) SHIGA-LIKE Not detected Not detected TOXIN-PRODUCING E. COLI (STEC) STX1/STX2 (test code = 69297-8) E. COLI O157 (PCR) (test code = 18898-8) SHIGELLA/ENTEROINVASIVE Not detected Not detected E. COLI (EIEC) BY PCR (test code = 92468-1) CRYPTOSPORIDIUM (PCR) Not detected Not detected (test code = 25982-8) CYCLOSPORA CAYETANENSIS Not detected Not detected (PCR) (test code = 83176-7) ENTAMOEBA HISTOLYTICA Not detected Not detected (PCR) (test code = 01385-8) GIARDIA LAMBLIA (PCR) Not detected Not detected (test code = 53826-6) ADENOVIRUS F 40/41 (PCR) Not detected Not detected (test code = 22680-2) ASTROVIRUS (PCR) (test Not detected Not detected code = 67814-8) NOROVIRUS GI/GII (PCR) Not detected Not detected (test code = 82391-4) ROTAVIRUS A (PCR) (test Not detected Not detected code = 28548-2) SAPOVIRUS (I, II, IV, V) Not detected Not detected BY PCR (test code = 02817-7) VIBRIO Not detected Not detected (PARAHAEMOLYTICUS, VULNIFICUS) (test code = 25119-6) CECELIA (test code = CECELIA) Other viruses, parasites and bacteria not targeted by this PCR panel cannot be excluded; therefore clinical correlation and follow up of serology, culture results, and other molecular studies is required. The results are not intended to be used as the sole means for clinical diagnosis or patient management decisions. This sample was tested at the [facility] Molecular Diagnostics Laboratory using the [employer] Gastrointestinal Panel. It is FDA cleared and has been verified and approved by the [facility] Molecular Diagnostics Laboratory for clinical use. This laboratory is CLIA-certified and [employer] (CAP)-accredited to perform high complexity testing. [facility] by PCR-ID [id number] 18:38:44 Test Item Value Reference Range Interpretation Comments CAMPYLOBACTER PCR (test Not detected Not detected code = 07656-3) PLESIOMONAS SHIGELLOIDES Not detected Not detected (PCR) (test code = 69812-9) SALMONELLA (PCR) (test Not detected Not detected code = 45247-5) YERSINIA ENTEROCOLITICA Not detected Not detected (PCR) (test code = 26902-8) VIBRIO CHOLERAE (PCR) Not detected Not detected (test code = 77949-5) ENTEROAGGREGATIVE E. Not detected Not detected COLI (EAEC) BY PCR (test code = 36963-7) ENTEROPATHOGENIC E. COLI Not detected Not detected (EPEC) BY PCR (test code = 02845-7) ENTEROTOXIGENIC E. COLI Not detected Not detected (ETEC) LT/ST BY PCR (test code = 39753-1) SHIGA-LIKE Not detected Not detected TOXIN-PRODUCING E. COLI (STEC) STX1/STX2 (test code = 15362-9) E. COLI O157 (PCR) (test code = 54991-8) SHIGELLA/ENTEROINVASIVE Not detected Not detected E. COLI (EIEC) BY PCR (test code = 67338-6) CRYPTOSPORIDIUM (PCR) Not detected Not detected (test code = 71949-7) CYCLOSPORA CAYETANENSIS Not detected Not detected (PCR) (test code = 71766-1) ENTAMOEBA HISTOLYTICA Not detected Not detected (PCR) (test code = 83560-6) GIARDIA LAMBLIA (PCR) Not detected Not detected (test code = 97052-8) ADENOVIRUS F 40/41 (PCR) Not detected Not detected (test code = 56319-9) ASTROVIRUS (PCR) (test Not detected Not detected code = 18294-9) NOROVIRUS GI/GII (PCR) Not detected Not detected (test code = 71258-5) ROTAVIRUS A (PCR) (test Not detected Not detected code = 64916-9) SAPOVIRUS (I, II, IV, V) Not detected Not detected BY PCR (test code = 17631-2) VIBRIO Not detected Not detected (PARAHAEMOLYTICUS, VULNIFICUS) (test code = 48516-8) CECELIA (test code = CECELIA) Other viruses, parasites and bacteria not targeted by this PCR panel cannot be excluded; therefore clinical correlation and follow up of serology, culture results, and other molecular studies is required. The results are not intended to be used as the sole means for clinical diagnosis or patient management decisions. This sample was tested at the [facility] Molecular Diagnostics Laboratory using the [employer] Gastrointestinal Panel. It is FDA cleared and has been verified and approved by the [facility] Molecular Diagnostics Laboratory for clinical use. This laboratory is CLIA-certified and [employer] (CAP)-accredited to perform high complexity testing. [facility] PATH[facility]EN PROFILE BY [id number] 18:38:44 Test Item Value Reference Range Interpretation Comments CAMPYLOBACTER (PCR) (test code = Not detected Not detected 20150928) PLESIOMONAS SHIGELLOIDES (PCR) Not detected Not detected (test code = 20151002) SALMONELLA (PCR) (test code = Not detected Not detected ) YERSINIA ENTEROCOLITICA (PCR) Not detected Not detected (test code = 5427645) VIBRIO CHOLERAE (PCR) (test code Not detected Not detected = 20151026) ENTEROAGGREGATIVE E. COLI (EAEC) Not detected Not detected BY PCR (test code = 4072096) ENTEROPATHOGENIC E. COLI (EPEC) Not detected Not detected BY PCR (test code = 0649354) ENTEROTOXIGENIC E. COLI (ETEC) Not detected Not detected LT/ST BY PCR (test code = 9895615) SHIGA-LIKE TOXIN-PRODUCING E. Not detected Not detected COLI (STEC) STX1/STX2 (test code = 9217720) E. COLI O157 (PCR) (test code = 0453281) SHIGELLA/ENTEROINVASIVE E. COLI Not detected Not detected (EIEC) BY PCR (test code = 7392274) CRYPTOSPORIDIUM (PCR) (test code Not detected Not detected = 20151102) CYCLOSPORA CAYETANENSIS (PCR) Not detected Not detected (test code = 7857789) ENTAMOEBA HISTOLYTICA (PCR) Not detected Not detected (test code = 6257964) GIARDIA LAMBLIA (PCR) (test code Not detected Not detected = 20151126) ADENOVIRUS F 40/41 (PCR) (test Not detected Not detected code = 8294228) ASTROVIRUS (PCR) (test code = Not detected Not detected 20151128) NOROVIRUS GI/GII (PCR) (test Not detected Not detected code = 1237602) ROTAVIRUS A (PCR) (test code = Not detected Not detected 20151130) SAPOVIRUS (I, II, IV, V) BY PCR Not detected Not detected (test code = 3089521) VIBRIO (PARAHAEMOLYTICUS, Not detected Not detected VULNIFICUS) (test code = 8041735) Other viruses, parasites and bacteria not targeted by this PCR panel cannot be excluded; therefore clinical correlation and follow up of serology, culture results, and other molecular studies is required. The results are not intended to be used as the sole means for clinical diagnosis or patient management decisions. This sample was tested at the [facility] Molecular Diagnostics Laboratory using the [employer] Gastrointestinal Panel. It is FDA cleared and has been verified and approved by the [facility] Molecular Diagnostics Laboratory for clinical use. This laboratory is CLIA-certified and College of[employer] (CAP)-accredited to perform high complexity testing.HEPATITIS B SURFACE [id number] 11:08:29 Test Item Value Reference Range Interpretation Comments HEPATITIS B SURFACE ANTIBODY < mIU/mL <8.0 (BEAKER) (test code = 647) Air Brush Operator ID - BANDAR MHEPATITIS B SURFACE [id number] 04:25:17 Test Item Value Reference Range Interpretation Comments HEPATITIS B SURFACE ANTIGEN (2) Nonreactive Nonreactive (BEAKER) (test code = 2585) Air Brush Operator ID - [id number] METABOLIC [id number] 04:16:49 Test Item Value Reference Range Interpretation Comments TOTAL PROTEIN 5.1 gm/dL 6.0-8.5 L Specimen moder ately (BEAKER) (test code = hemoly zed 770) ALBUMIN (BEAKER) 1.7 g/dL 3.5-5.0 L Specimen mo derately (test code = 1145) hemolyzed ALKALINE PHOSPHATASE 95 U/L 30-115 (BEAKER) (test code = 346) BILIRUBIN TOTAL 0.2 mg/dL 0.1-1.2 Specimen mod erately (BEAKER) (test code = hemoly zed 377) SODIUM (BEAKER) (test 130 meq/L 135-148 L code = 381) POTASSIUM (BEAKER) 3.0 meq/L 3.6-5.5 L Specimen moderately (test code = 379) hemolyzed CHLORIDE (BEAKER) 101 meq/L 98-106 (test code = 382) CO2 (BEAKER) (test 16 meq/L 20-29 L code = 355) BLOOD UREA NITROGEN 30 mg/dL 10-26 H (BEAKER) (test code = 354) CREATININE (BEAKER) 11.33 mg/dL 0.50-1.20 H Specimen moderately (test code = 358) hemolyzed GLUCOSE RANDOM 76 mg/dL 70-110 (BEAKER) (test code = 652) CALCIUM (BEAKER) 7.0 mg/dL 8.5-10.5 L (test code = 697) AST (SGOT) (BEAKER) 12 U/L 5-40 Specimen moderately (test code = 353) hemolyzed ALT (SGPT) (BEAKER) 4 U/L 5-50 L Specimen moderately (test code = 347) hemolyzed EGFR (BEAKER) (test 4 mL/min/1.73 ESTIMAT ED GFR IS code = 1092) sq m NOT ACCURATE CREATININE CLEARANCE IN PREDICTING GLOMERULAR FILTRATION RATE . ESTIMATED GFR I S NOT APPLICABLE FOR DIALYSIS PATIEN TS. Air Brush Operator ID - [id number] ID - [id number] ID - [id number] ID - MCVT79Syhazdko ID - DLPD56Tnfumbgn ID - LWQE65Ocmoabpn ID - CMFV91Xvbbyqya ID - IRRO77Drygtwvm ID - NPYT32Udtuacvn ID - UYZO94Evljggkj ID - ESKD43Cyalqxwg ID - ZUYX77Htwdpudr ID - YLAV55Ioylljdu ID - UVPN78Fbhvhnte ID - AEOP22Afumgpdh ID - [id number] 04:09:54 Test Item Value Reference Range Interpretation Comments MAGNESIUM (BEAKER) 1.9 mg/dL 1.5-3.0 Specimen moderately (test code = 627) hemolyzed Air Brush Operator ID - [id number] ID - [id number] ID - [id number] ID - [id number] CALCIUM, [id number] 03:53:39 Test Item Value Reference Range Interpretation Comments CALCIUM IONIZED (BEAKER) (test 0.86 mmol/L 1.12-1.27 L code = 698) PH, BLOOD (BEAKER) (test code = 7.54 1810) CBC W/PLT COUNT & AUTO [id number] 03:53:15 Test Item Value Reference Range Interpretation Comments WHITE BLOOD CELL COUNT (BEAKER) 6.8 K/ L 4.0-10.0 (test code = 775) RED BLOOD CELL COUNT (BEAKER) 3.00 M/ L 4.00-5.00 L (test code = 761) HEMOGLOBIN (BEAKER) (test code = 8.9 GM/DL 12.0-15.5 L 410) HEMATOCRIT (BEAKER) (test code = 27.1 % 36.0-46.0 L 411) MEAN CORPUSCULAR VOLUME (BEAKER) 90.3 fL 82.0-99.0 (test code = 753) MEAN CORPUSCULAR HEMOGLOBIN 29.7 pg 27.0-33.0 (BEAKER) (test code = 751) MEAN CORPUSCULAR HEMOGLOBIN CONC 32.8 GM/DL 32.0-36.0 (BEAKER) (test code = 752) RED CELL DISTRIBUTION WIDTH 17.3 % 12.0-15.0 H (BEAKER) (test code = 412) PLATELET COUNT (BEAKER) (test 387 K/CU MM 150-430 code = 756) MEAN PLATELET VOLUME (BEAKER) 11.6 fL 6.0-11.5 H (test code = 754) NUCLEATED RED BLOOD CELLS 1 /100 WBC 0-0 H (BEAKER) (test code = 413) NEUTROPHILS RELATIVE PERCENT 67 % (BEAKER) (test code = 429) LYMPHOCYTES RELATIVE PERCENT 20 % (BEAKER) (test code = 430) MONOCYTES RELATIVE PERCENT 9 % (BEAKER) (test code = 431) EOSINOPHILS RELATIVE PERCENT 3 % (BEAKER) (test code = 432) BASOPHILS RELATIVE PERCENT 1 % (BEAKER) (test code = 437) NEUTROPHILS ABSOLUTE COUNT 4.52 K/ L 1.80-8.00 (BEAKER) (test code = 670) LYMPHOCYTES ABSOLUTE COUNT 1.32 K/ L 1.48-4.50 L (BEAKER) (test code = 414) MONOCYTES ABSOLUTE COUNT (BEAKER) 0.63 K/ L 0.00-1.30 (test code = 415) EOSINOPHILS ABSOLUTE COUNT 0.22 K/ L 0.00-0.50 (BEAKER) (test code = 416) BASOPHILS ABSOLUTE COUNT (BEAKER) 0.04 K/ L 0.00-0.20 (test code = 417) IMMATURE GRANULOCYTES-RELATIVE 0 % 0-0 PERCENT (BEAKER) (test code = 2801) Prepare Leuko-Red [id number] 23:55:00 Test Item Value Reference Range Interpretation Comments CROSSMATCH (test code = 2264) COMPATIBLE Unit ABO (test code = O Pos 5686964) UNIT NUMBER (test code = [id number] 934-0) Status (test code = 1133705) TX_TIMEINCHART Blood Bank Product (test code RED BLOOD CELLS = 2263) PRODUCT CODE (test code = L6982F46 933-2) [facility] METABOLIC [id number] 17:15:10 Test Item Value Reference Range Interpretation Comments SODIUM (BEAKER) 133 meq/L 135-148 L (test code = 381) POTASSIUM (BEAKER) 3.2 meq/L 3.6-5.5 L Specimen slightly (test code = 379) hemolyzed CHLORIDE (BEAKER) 101 meq/L 98-106 (test code = 382) CO2 (BEAKER) (test 17 meq/L 20-29 L code = 355) BLOOD UREA NITROGEN 30 mg/dL 10-26 H (BEAKER) (test code = 354) CREATININE (BEAKER) 11.84 mg/dL 0.50-1.20 H Specimen slightly (test code = 358) hemolyzed GLUCOSE RANDOM 72 mg/dL 70-110 (BEAKER) (test code = 652) CALCIUM (BEAKER) 6.9 mg/dL 8.5-10.5 L (test code = 697) EGFR (BEAKER) (test 4 mL/min/1.73 ESTIMAT ED GFR IS code = 1092) sq m NOT ACCURATE CREATININE CLEARANCE IN PREDICTING GLOMERULAR FILTRATION RATE . ESTIMATED GFR I S NOT APPLICABLE FOR DIALYSIS PATIEN TS. Air Brush Operator ID - ONYINYEOperator ID - ONYINYEOperator ID - ONYINYEOperator ID - ONYINYEOperator ID - ONYINYEOperator ID - ONYINYEOperator ID - ONYINYEOperator ID - ONYINYEOperator ID - ONYINYEOperator ID - ONYINYEOperator ID - ONYINYEOperator ID - ONYINYEOperator ID - ONYINYECBC W/PLT COUNT & AUTO [id number] 17:03:51 Test Item Value Reference Range Interpretation Comments WHITE BLOOD CELL COUNT (BEAKER) 7.9 K/ L 4.0-10.0 (test code = 775) RED BLOOD CELL COUNT (BEAKER) 2.97 M/ L 4.00-5.00 L (test code = 761) HEMOGLOBIN (BEAKER) (test code = 8.8 GM/DL 12.0-15.5 L 410) HEMATOCRIT (BEAKER) (test code = 25.6 % 36.0-46.0 L 411) MEAN CORPUSCULAR VOLUME (BEAKER) 86.2 fL 82.0-99.0 (test code = 753) MEAN CORPUSCULAR HEMOGLOBIN 29.6 pg 27.0-33.0 (BEAKER) (test code = 751) MEAN CORPUSCULAR HEMOGLOBIN CONC 34.4 GM/DL 32.0-36.0 (BEAKER) (test code = 752) RED CELL DISTRIBUTION WIDTH 17.0 % 12.0-15.0 H (BEAKER) (test code = 412) PLATELET COUNT (BEAKER) (test 356 K/CU MM 150-430 code = 756) MEAN PLATELET VOLUME (BEAKER) 12.0 fL 6.0-11.5 H (test code = 754) NUCLEATED RED BLOOD CELLS 0 /100 WBC 0-0 (BEAKER) (test code = 413) NEUTROPHILS RELATIVE PERCENT 82 % (BEAKER) (test code = 429) LYMPHOCYTES RELATIVE PERCENT 10 % (BEAKER) (test code = 430) MONOCYTES RELATIVE PERCENT 5 % (BEAKER) (test code = 431) EOSINOPHILS RELATIVE PERCENT 2 % (BEAKER) (test code = 432) BASOPHILS RELATIVE PERCENT 1 % (BEAKER) (test code = 437) NEUTROPHILS ABSOLUTE COUNT 6.44 K/ L 1.80-8.00 (BEAKER) (test code = 670) LYMPHOCYTES ABSOLUTE COUNT 0.79 K/ L 1.48-4.50 L (BEAKER) (test code = 414) MONOCYTES ABSOLUTE COUNT (BEAKER) 0.37 K/ L 0.00-1.30 (test code = 415) EOSINOPHILS ABSOLUTE COUNT 0.15 K/ L 0.00-0.50 (BEAKER) (test code = 416) BASOPHILS ABSOLUTE COUNT (BEAKER) 0.05 K/ L 0.00-0.20 (test code = 417) IMMATURE GRANULOCYTES-RELATIVE 1 % 0-0 H PERCENT (BEAKER) (test code = 2801) CALCIUM, [id number] 16:56:18 Test Item Value Reference Range Interpretation Comments CALCIUM IONIZED (BEAKER) (test 0.95 mmol/L 1.12-1.27 L code = 698) PH, BLOOD (BEAKER) (test code = 7.52 1810) Clostridium difficile GDH [id number] 12:56:45 Test Item Value Reference Range Interpretation Comments C. Difficle Toxin Negative Negative (test code = 9419562315) C. Difficile GDH Positive Negative A C. difficil e Antigen (test code = present but toxin 5396614282) not detected. Indicates colonization wi th non-toxigenic strain or level of toxin below detectable levels. No need for enteric isolation. Treatment is rarely needed (only when stro ng clinical suspicion for Clostridium difficile infection) CECELIA (test code = Testing performed CECELIA) by [employer] Rapid Cassette Assay. For GDH, published sensitivity of the assay is 98.7% compared to cytotoxicity testing. For Toxin AB, published sensitivity is 87.8% and specificity 99.4% compared to cytotoxicity testing.Verificati on of kit performance was done by the [facility] Microbiology Lab prior to clinical use. Lab Interpretation Abnormal (test code = 53150-1) [facility]ost[facility] difficile [facility]DH [id number] 12:56:45 Test Item Value Reference Range Interpretation Comments C. Difficle Toxin Negative Negative (test code = 6208775821) C. Difficile GDH Positive Negative A C. difficil e Antigen (test code = present but toxin 2779894764) not detected. Indicates colonization wi th non-toxigenic strain or level of toxin below detectable levels. No nee d for enteric isolation. Treatment is rarely needed (only when stro ng clinical suspicion for Clostridium difficile infection) CECELIA (test code = Testing performed CECELIA) by [employer] Rapid Cassette Assay. For GDH, published sensitivity of the assay is 98.7% compared to cytotoxicity testing. For Toxin AB, published sensitivity is 87.8% and specificity 99.4% compared to cytotoxicity testing.Verificati on of kit performance was done by the [facility] Microbiology Lab prior to clinical use. Lab Interpretation Abnormal (test code = 05293-8) [facility]Clostridium difficile GDH [id number] 12:56:45 Test Item Value Reference Range Interpretation Comments C. Difficle Toxin Negative Negative (test code = 1701902160) C. Difficile GDH Positive Negative A C. difficil e Antigen (test code = present but toxin [id number]) not detected. Indicates colonization wi th non-toxigenic strain or level of toxin below detectable levels. No need for enteric isolation. Treatment is rarely needed (only when stro ng clinical suspicion for Clostridium difficile infection) CECELIA (test code = Testing performed CECELIA) by [employer] Rapid Cassette Assay. For GDH, published sensitivity of the assay is 98.7% compared to cytotoxicity testing. For Toxin AB, published sensitivity is 87.8% and specificity 99.4% compared to cytotoxicity testing.Verificati on of kit performance was done by the [facility] Microbiology Lab prior to clinical use. Lab Interpretation Abnormal (test code = 84716-1) [facility] DIFFICILE GDH [id number] 12:56:45 Test Item Value Reference Range Interpretation Comments CDT TOXIN (test code Negative Negative = 0867610199) CDT GDH ANTIGEN Positive Negative A C. difficile present but (test code = toxin not detec sally. 2668872371) Indicates colon ization with non-toxige keira strain or level of tox in below detectable leve ls. No need for enteri c isolation. Sarah tment is rarely needed ( only when strong clinical suspicion for Clostridium difficile infection) Testing performed by [employer] Rapid Cassette Assay. For GDH, published sensitivity of the assay is 98.7% compared to cytotoxicity testing. For Toxin AB, published sensitivity is 87.8% and specificity 99.4% compared to cytotoxicity testing.Verification of kit performance was done by the [facility] MicrobiologyLab prior to clinical use.[id number] 11:25:57 Test Item Value Reference Range Interpretation Comments PHOSPHORUS (BEAKER) 2.4 mg/dL 2.5-4.5 L Specimen moderately (test code = 604) hemolyzed Air Brush Operator ID - LITOOperator ID - LITOOperator ID - LITOOperator ID - FREEDOM COMPREHENSIVE METABOLIC [id number] 06:12:13 Test Item Value Reference Range Interpretation Comments TOTAL PROTEIN 4.9 gm/dL 6.0-8.5 L Specimen moder ately (BEAKER) (test code = hemoly zed 770) ALBUMIN (BEAKER) 1.6 g/dL 3.5-5.0 L Specimen mo derately (test code = 1145) hemolyzed ALKALINE PHOSPHATASE 98 U/L 30-115 (BEAKER) (test code = 346) BILIRUBIN TOTAL 0.3 mg/dL 0.1-1.2 Specimen mod erately (BEAKER) (test code = hemoly zed 377) SODIUM (BEAKER) (test 130 meq/L 135-148 L code = 381) POTASSIUM (BEAKER) 4.4 meq/L 3.6-5.5 Specimen moderately (test code = 379) hemolyzed CHLORIDE (BEAKER) 104 meq/L 98-106 (test code = 382) CO2 (BEAKER) (test 16 meq/L 20-29 L code = 355) BLOOD UREA NITROGEN 25 mg/dL 10-26 (BEAKER) (test code = 354) CREATININE (BEAKER) 11.13 mg/dL 0.50-1.20 H Specimen moderately (test code = 358) hemolyzed GLUCOSE RANDOM 52 mg/dL 70-110 L (BEAKER) (test code = 652) CALCIUM (BEAKER) 6.6 mg/dL 8.5-10.5 L (test code = 697) AST (SGOT) (BEAKER) 17 U/L 5-40 Specimen moderately (test code = 353) hemolyzed ALT (SGPT) (BEAKER) 4 U/L 5-50 L Specimen moderately (test code = 347) hemolyzed EGFR (BEAKER) (test 4 mL/min/1.73 ESTIMAT ED GFR IS code = 1092) sq m NOT ACCURATE CREATININE CLEARANCE IN PREDICTING GLOMERULAR FILTRATION RATE . ESTIMATED GFR I S NOT APPLICABLE FOR DIALYSIS PATIEN TS. Air Brush Operator ID - ADMINOperator ID - ADMINOperator ID - ADMINOperator ID - ADMINOperator ID - ADMINOperator ID - ADMINOperator ID - ADMINOperator ID - ADMINOperator ID - ADMINOperator ID - ADMINOperator ID- ADMINOperator ID - ADMINOperator ID - ADMINOperator ID - ADMINOperator ID - ADMINOperator ID - ADMI [id number] 06:02:00 Test Item Value Reference Range Interpretation Comments MAGNESIUM (BEAKER) 1.8 mg/dL 1.5-3.0 Specimen moderately (test code = 627) hemolyzed Air Brush Operator ID - ADMINOperator ID - ADMINOperator ID - ADMINOperator ID - ADMINCBC W/PLT COUNT & AUTO [id number] 05:41:57 Test Item Value Reference Range Interpretation Comments WHITE BLOOD CELL COUNT (BEAKER) 8.7 K/ L 4.0-10.0 (test code = 775) RED BLOOD CELL COUNT (BEAKER) 2.93 M/ L 4.00-5.00 L (test code = 761) HEMOGLOBIN (BEAKER) (test code = 8.6 GM/DL 12.0-15.5 L 410) HEMATOCRIT (BEAKER) (test code = 26.0 % 36.0-46.0 L 411) MEAN CORPUSCULAR VOLUME (BEAKER) 88.7 fL 82.0-99.0 (test code = 753) MEAN CORPUSCULAR HEMOGLOBIN 29.4 pg 27.0-33.0 (BEAKER) (test code = 751) MEAN CORPUSCULAR HEMOGLOBIN CONC 33.1 GM/DL 32.0-36.0 (BEAKER) (test code = 752) RED CELL DISTRIBUTION WIDTH 17.5 % 12.0-15.0 H (BEAKER) (test code = 412) PLATELET COUNT (BEAKER) (test 274 K/CU MM 150-430 code = 756) MEAN PLATELET VOLUME (BEAKER) 12.2 fL 6.0-11.5 H (test code = 754) NUCLEATED RED BLOOD CELLS 0 /100 WBC 0-0 (BEAKER) (test code = 413) NEUTROPHILS RELATIVE PERCENT 82 % (BEAKER) (test code = 429) LYMPHOCYTES RELATIVE PERCENT 10 % (BEAKER) (test code = 430) MONOCYTES RELATIVE PERCENT 5 % (BEAKER) (test code = 431) EOSINOPHILS RELATIVE PERCENT 2 % (BEAKER) (test code = 432) BASOPHILS RELATIVE PERCENT 1 % (BEAKER) (test code = 437) NEUTROPHILS ABSOLUTE COUNT 7.11 K/ L 1.80-8.00 (BEAKER) (test code = 670) LYMPHOCYTES ABSOLUTE COUNT 0.84 K/ L 1.48-4.50 L (BEAKER) (test code = 414) MONOCYTES ABSOLUTE COUNT (BEAKER) 0.46 K/ L 0.00-1.30 (test code = 415) EOSINOPHILS ABSOLUTE COUNT 0.19 K/ L 0.00-0.50 (BEAKER) (test code = 416) BASOPHILS ABSOLUTE COUNT (BEAKER) 0.06 K/ L 0.00-0.20 (test code = 417) IMMATURE GRANULOCYTES-RELATIVE 0 % 0-0 PERCENT (BEAKER) (test code = 2801) BASIC METABOLIC [id number] 20:07:52 Test Item Value Reference Range Interpretation Comments SODIUM (BEAKER) 132 meq/L 135-148 L (test code = 381) POTASSIUM (BEAKER) 3.9 meq/L 3.6-5.5 Specimen slightly (test code = 379) hemolyzed CHLORIDE (BEAKER) 101 meq/L 98-106 (test code = 382) CO2 (BEAKER) (test 20 meq/L 20-29 code = 355) BLOOD UREA NITROGEN 26 mg/dL 10-26 (BEAKER) (test code = 354) CREATININE (BEAKER) 10.59 mg/dL 0.50-1.20 H Specimen slightly (test code = 358) hemolyzed GLUCOSE RANDOM 76 mg/dL 70-110 (BEAKER) (test code = 652) CALCIUM (BEAKER) 6.3 mg/dL 8.5-10.5 L (test code = 697) EGFR (BEAKER) (test 5 mL/min/1.73 ESTIMAT ED GFR IS code = 1092) sq m NOT ACCURATE CREATININE CLEARANCE IN PREDICTING GLOMERULAR FILTRATION RATE . ESTIMATED GFR I S NOT APPLICABLE FOR DIALYSIS PATIEN TS. Air Brush Operator ID - [id number] ID - [id number] ID - [id number] ID - [id number] ID - [id number] ID - [id number] ID - [id number] ID - [id number] ID - [id number] ID - [id number] ID - [id number] ID - [id number] ID - [id number] Echo W/Doppler(CW/PW/Color)2021-08-12 11:40:21Ejection FractionSLEH ECHO HEARTLAB [facility]D Echo W/Doppler(CW/PW/Color)2021-08-12 11:40:21Ejection FractionSLEH ECHO HEARTLAB [facility] Echo W/Doppler(CW/PW/Color) 2021-08-12 11:40:21[facility]LE[facility] 06:15:26 Test Item Value Reference Range Interpretation Comments FERRITIN (BEAKER) (test code = 1071.10 ng/mL 10.00-291.00 H 361) Air Brush Operator ID - [id number] METABOLIC [id number] 04:03:51 Test Item Value Reference Range Interpretation Comments TOTAL PROTEIN 4.0 gm/dL 6.0-8.5 L (BEAKER) (test code = 770) ALBUMIN (BEAKER) 1.6 g/dL 3.5-5.0 L (test code = 1145) ALKALINE PHOSPHATASE 96 U/L 30-115 (BEAKER) (test code = 346) BILIRUBIN TOTAL 0.4 mg/dL 0.1-1.2 (BEAKER) (test code = 377) SODIUM (BEAKER) (test 134 meq/L 135-148 L code = 381) POTASSIUM (BEAKER) 2.4 meq/L 3.6-5.5 LL (test code = 379) CHLORIDE (BEAKER) 99 meq/L 98-106 (test code = 382) CO2 (BEAKER) (test 25 meq/L 20-29 code = 355) BLOOD UREA NITROGEN 24 mg/dL 10-26 (BEAKER) (test code = 354) CREATININE (BEAKER) 10.90 mg/dL 0.50-1.20 H (test code = 358) GLUCOSE RANDOM 85 mg/dL 70-110 (BEAKER) (test code = 652) CALCIUM (BEAKER) 6.5 mg/dL 8.5-10.5 L (test code = 697) AST (SGOT) (BEAKER) 22 U/L 5-40 (test code = 353) ALT (SGPT) (BEAKER) 5 U/L 5-50 (test code = 347) EGFR (BEAKER) (test 4 mL/min/1.73 ESTIMAT ED GFR IS code = 1092) sq m NOT ACCURATE CREATININE CLEARANCE IN PREDICTING GLOMERULAR FILTRATION RATE . ESTIMATED GFR I S NOT APPLICABLE FOR DIALYSIS PATIEN TS. Air Brush Operator ID - [id number] ID - [id number] ID - [id number] ID - [id number] ID - [id number] ID - [id number] ID - [id number] ID - [id number] ID - [id number] ID - [id number] ID - [id number] ID - [id number] ID - [id number] ID - [id number] ID - [id number] ID - [id number] 03:37:52 Test Item Value Reference Range Interpretation Comments MAGNESIUM (BEAKER) (test code = 1.5 mg/dL 1.5-3.0 627) Air Brush Operator ID - [id number] ID - [id number] ID - [id number] ID - [id number] W/PLT COUNT & AUTO [id number] 03:23:47 Test Item Value Reference Range Interpretation Comments WHITE BLOOD CELL COUNT (BEAKER) 7.7 K/ L 4.0-10.0 (test code = 775) RED BLOOD CELL COUNT (BEAKER) 2.38 M/ L 4.00-5.00 L (test code = 761) HEMOGLOBIN (BEAKER) (test code = 6.8 GM/DL 12.0-15.5 L 410) HEMATOCRIT (BEAKER) (test code = 20.7 % 36.0-46.0 LL 411) MEAN CORPUSCULAR VOLUME (BEAKER) 87.0 fL 82.0-99.0 (test code = 753) MEAN CORPUSCULAR HEMOGLOBIN 28.6 pg 27.0-33.0 (BEAKER) (test code = 751) MEAN CORPUSCULAR HEMOGLOBIN CONC 32.9 GM/DL 32.0-36.0 (BEAKER) (test code = 752) RED CELL DISTRIBUTION WIDTH 17.8 % 12.0-15.0 H (BEAKER) (test code = 412) PLATELET COUNT (BEAKER) (test 327 K/CU MM 150-430 code = 756) MEAN PLATELET VOLUME (BEAKER) 11.8 fL 6.0-11.5 H (test code = 754) NUCLEATED RED BLOOD CELLS 0 /100 WBC 0-0 (BEAKER) (test code = 413) NEUTROPHILS RELATIVE PERCENT 80 % (BEAKER) (test code = 429) LYMPHOCYTES RELATIVE PERCENT 11 % (BEAKER) (test code = 430) MONOCYTES RELATIVE PERCENT 6 % (BEAKER) (test code = 431) EOSINOPHILS RELATIVE PERCENT 3 % (BEAKER) (test code = 432) BASOPHILS RELATIVE PERCENT 1 % (BEAKER) (test code = 437) NEUTROPHILS ABSOLUTE COUNT 6.13 K/ L 1.80-8.00 (BEAKER) (test code = 670) LYMPHOCYTES ABSOLUTE COUNT 0.81 K/ L 1.48-4.50 L (BEAKER) (test code = 414) MONOCYTES ABSOLUTE COUNT (BEAKER) 0.45 K/ L 0.00-1.30 (test code = 415) EOSINOPHILS ABSOLUTE COUNT 0.19 K/ L 0.00-0.50 (BEAKER) (test code = 416) BASOPHILS ABSOLUTE COUNT (BEAKER) 0.06 K/ L 0.00-0.20 (test code = 417) IMMATURE GRANULOCYTES-RELATIVE 0 % 0-0 PERCENT (BEAKER) (test code = 2801) [id number] 20:33:51 Test Item Value Reference Range Interpretation Comments MAGNESIUM (BEAKER) 1.6 mg/dL 1.5-3.0 Specimen slightly (test code = 627) hemolyzed Air Brush Operator ID - [id number] ID - [id number] ID - [id number] ID - [id number] METABOLIC [id number] 18:51:24 Test Item Value Reference Range Interpretation Comments SODIUM (BEAKER) 135 meq/L 135-148 (test code = 381) POTASSIUM (BEAKER) 2.4 meq/L 3.6-5.5 LL Specimen slightly (test code = 379) hemolyzed CHLORIDE (BEAKER) 98 meq/L 98-106 (test code = 382) CO2 (BEAKER) (test 24 meq/L 20-29 code = 355) BLOOD UREA NITROGEN 22 mg/dL 10-26 (BEAKER) (test code = 354) CREATININE (BEAKER) 10.75 mg/dL 0.50-1.20 H Specimen slightly (test code = 358) hemolyzed GLUCOSE RANDOM 72 mg/dL 70-110 (BEAKER) (test code = 652) CALCIUM (BEAKER) 6.3 mg/dL 8.5-10.5 L (test code = 697) EGFR (BEAKER) (test 4 mL/min/1.73 ESTIMAT ED GFR IS code = 1092) sq m NOT ACCURATE CREATININE CLEARANCE IN PREDICTING GLOMERULAR FILTRATION RATE . ESTIMATED GFR I S NOT APPLICABLE FOR DIALYSIS PATIEN TS. Air Brush Operator ID - [id number] ID - [id number] ID - [id number] ID - [id number] ID - [id number] ID - [id number] ID - [id number] ID - [id number] ID - [id number] ID - [id number] ID - [id number] ID - [id number] ID - [id number], TIBC, % SAT. (WITHOUT FERRITIN)2021-08-11 12:03:57 Test Item Value Reference Range Interpretation Comments IRON (BEAKER) (test code = 547) 68.0 ug/dL 45.0-170.0 TOTAL IRON BINDING CAPACITY 66 ug/dL 250-550 L (BEAKER) (test code = 769) IRON % SATURATION (2) (BEAKER) 103 % 20-55 H (test code = 2590) Air Brush Operator ID - [id number] ID - [id number] 11:00:01 Test Item Value Reference Range Interpretation Comments MAGNESIUM (BEAKER) 1.3 mg/dL 1.5-3.0 L Specimen slightly (test code = 627) hemolyzed Air Brush Operator ID - [id number] METABOLIC [id number] 06:41:44 Test Item Value Reference Range Interpretation Comments TOTAL PROTEIN 5.1 gm/dL 6.0-8.5 L Specimen sligh tly (BEAKER) (test code = hemoly zed 770) ALBUMIN (BEAKER) 1.9 g/dL 3.5-5.0 L Specimen sl ightly (test code = 1145) hemolyzed ALKALINE PHOSPHATASE 103 U/L 30-115 (BEAKER) (test code = 346) BILIRUBIN TOTAL 0.4 mg/dL 0.1-1.2 Specimen sli ghtly (BEAKER) (test code = hemoly zed 377) SODIUM (BEAKER) (test 135 meq/L 135-148 code = 381) POTASSIUM (BEAKER) 2.2 meq/L 3.6-5.5 LL Specimen slightly (test code = 379) hemolyzed CHLORIDE (BEAKER) 96 meq/L 98-106 L (test code = 382) CO2 (BEAKER) (test 27 meq/L 20-29 code = 355) BLOOD UREA NITROGEN 20 mg/dL 10-26 (BEAKER) (test code = 354) CREATININE (BEAKER) 10.28 mg/dL 0.50-1.20 H Specimen slightly (test code = 358) hemolyzed GLUCOSE RANDOM 72 mg/dL 70-110 (BEAKER) (test code = 652) CALCIUM (BEAKER) 6.4 mg/dL 8.5-10.5 L (test code = 697) AST (SGOT) (BEAKER) 26 U/L 5-40 Specimen slightly (test code = 353) hemolyzed ALT (SGPT) (BEAKER) 3 U/L 5-50 L Specimen slightly (test code = 347) hemolyzed EGFR (BEAKER) (test 5 mL/min/1.73 ESTIMAT ED GFR IS code = 1092) sq m NOT ACCURATE CREATININE CLEARANCE IN PREDICTING GLOMERULAR FILTRATION RATE . ESTIMATED GFR I S NOT APPLICABLE FOR DIALYSIS PATIEN TS. Air Brush Operator ID - [id number] ID - [id number] ID - [id number] ID - [id number] ID - [id number] ID - [id number] ID - [id number] ID - [id number] ID - [id number] ID - [id number] ID - [id number] ID - [id number] ID - [id number] ID - [id number] ID - [id number] ID -[id number] [id number] 06:41:32 Test Item Value Reference Range Interpretation Comments TRIGLYCERIDES (BEAKER) 91 mg/dL Speci men slightly (test code = 540) hemolyzed CHOLESTEROL (BEAKER) 106 mg/dL Specime n slightly (test code = 631) hemolyzed HDL CHOLESTEROL (BEAKER) 30 mg/dL (test code = 976) LDL CHOLESTEROL 58 mg/dL CALCULATED (BEAKER) (test code = 633) Triglyceride Reference Range: Low Risk <150 Borderline 150-199 High Risk 200- 499 Very High Risk >=500Cholesterol Reference Range: Low Risk <200 Borderline 200-239 High Risk >240HDL Cholesterol Reference Range: Low Risk >=60 High Risk <40LDL Cholesterol Reference Range: Optimal <100 Near Optimal 100-129 Borderline 130-159 High 160-189 Very High >=190 Air Brush Operator ID - [id number] ID - [id number] ID - [id number] ID - [id number] ID - [id number] ID - [id number] A1C 2021-08-11 06:37:45 Test Item Value Reference Range Interpretation Comments HEMOGLOBIN A1C (BEAKER) (test code = 4.7 % 4.3-6.1 368) Air Brush Operator ID - [id number] W/PLT COUNT & AUTO [id number] 06:08:50 Test Item Value Reference Range Interpretation Comments WHITE BLOOD CELL COUNT (BEAKER) 7.4 K/ L 4.0-10.0 (test code = 775) RED BLOOD CELL COUNT (BEAKER) 2.70 M/ L 4.00-5.00 L (test code = 761) HEMOGLOBIN (BEAKER) (test code = 7.8 GM/DL 12.0-15.5 L 410) HEMATOCRIT (BEAKER) (test code = 23.7 % 36.0-46.0 L 411) MEAN CORPUSCULAR VOLUME (BEAKER) 87.8 fL 82.0-99.0 (test code = 753) MEAN CORPUSCULAR HEMOGLOBIN 28.9 pg 27.0-33.0 (BEAKER) (test code = 751) MEAN CORPUSCULAR HEMOGLOBIN CONC 32.9 GM/DL 32.0-36.0 (BEAKER) (test code = 752) RED CELL DISTRIBUTION WIDTH 18.1 % 12.0-15.0 H (BEAKER) (test code = 412) PLATELET COUNT (BEAKER) (test 274 K/CU MM 150-430 code = 756) MEAN PLATELET VOLUME (BEAKER) 12.7 fL 6.0-11.5 H (test code = 754) NUCLEATED RED BLOOD CELLS 0 /100 WBC 0-0 (BEAKER) (test code = 413) NEUTROPHILS RELATIVE PERCENT 67 % (BEAKER) (test code = 429) LYMPHOCYTES RELATIVE PERCENT 24 % (BEAKER) (test code = 430) MONOCYTES RELATIVE PERCENT 7 % (BEAKER) (test code = 431) EOSINOPHILS RELATIVE PERCENT 1 % (BEAKER) (test code = 432) BASOPHILS RELATIVE PERCENT 1 % (BEAKER) (test code = 437) NEUTROPHILS ABSOLUTE COUNT 4.96 K/ L 1.80-8.00 (BEAKER) (test code = 670) LYMPHOCYTES ABSOLUTE COUNT 1.76 K/ L 1.48-4.50 (BEAKER) (test code = 414) MONOCYTES ABSOLUTE COUNT (BEAKER) 0.50 K/ L 0.00-1.30 (test code = 415) EOSINOPHILS ABSOLUTE COUNT 0.10 K/ L 0.00-0.50 (BEAKER) (test code = 416) BASOPHILS ABSOLUTE COUNT (BEAKER) 0.06 K/ L 0.00-0.20 (test code = 417) IMMATURE GRANULOCYTES-RELATIVE 1 % 0-0 H PERCENT (BEAKER) (test code = 2801) POCT-GLUCOSE [id number] 11:15:00 Test Item Value Reference Range Interpretation Comments POC-GLUCOSE METER 99 mg/dL 70-110 : TESTED A T [address] (BEAKER) (test code = [address]) [facility] [place] [address]: Air Brush Operator/Techni daniel ID = [id number] for Raeann Lai POCT-GLUCOSE [id number] 11:15:00 Test Item Value Reference Range Interpretation Comments POC-GLUCOSE METER 79 mg/dL 70-110 : Notified RN/MD: TESTED (BEAKER) (test code = [address]) [place] [id number]: Air Brush Operator/Techni daniel ID = [id number] for Smita Campuzano POCT-GLUCOSE [id number] 11:15:00 Test Item Value Reference Range Interpretation Comments POC-GLUCOSE METER 106 mg/dL 70-110 : TESTED A T [address] (BEAKER) (test [facility] [address] [facility] [place] [address]: Air Brush Operator/Techni daniel ID = [id number] for Valentina Piña POCT-GLUCOSE [id number] 11:15:00 Test Item Value Reference Range Interpretation Comments POC-GLUCOSE METER 82 mg/dL 70-110 : TESTED A T [address] (BEAKER) (test code = [address]) [place] [address]: Air Brush Operator/Techni daniel ID = [id number] for Terrieu alonzo, Raeann POCT-GLUCOSE [id number] 11:15:00 Test Item Value Reference Range Interpretation Comments POC-GLUCOSE METER 88 mg/dL 70-110 : TESTED A T [address] (BEAKER) (test code = [address]) [place] [address]: Air Brush Operator/Techni daniel ID = [id number] for Kuru alonzo, Raeann POCT-GLUCOSE [id number] 11:15:00 Test Item Value Reference Range Interpretation Comments POC-GLUCOSE METER 83 mg/dL 70-110 : Notified RN/MD: [facility] (test code = [address]) [place] [address]: Air Brush Operator/Techni daniel ID = [id number] for Maria Teresa Charlton POCT-GLUCOSE [id number] 11:15:00 Test Item Value Reference Range Interpretation Comments POC-GLUCOSE METER 110 mg/dL 70-110 : TESTED A T [address] (BEAKER) (test code [address], = [address]) [place] [address]: Air Brush Operator/Techni daniel ID = [id number] for Maria Teresa Charlton POCT-GLUCOSE [id number] 11:14:00 Test Item Value Reference Range Interpretation Comments POC-GLUCOSE METER 96 mg/dL 70-110 : TESTED A T [address] (BEAKER) (test code = [address]) [place] [address]: Air Brush Operator/Techni daniel ID = [id number] for Ali, Yaw POCT-GLUCOSE [id number] 11:14:00 Test Item Value Reference Range Interpretation Comments POC-GLUCOSE METER 97 mg/dL 70-110 : TESTED A T [address] (BEAKER) (test code = [address]) [place] [address]: Air Brush Operator/Techni daniel ID = [id number] for Ali, Yaw POCT-GLUCOSE [id number] 11:14:00 Test Item Value Reference Range Interpretation Comments POC-GLUCOSE METER 99 mg/dL 70-110 : TESTED A T [address] (BEAKER) (test code = [address]) [place] [address]: Air Brush Operator/Techni daniel ID = [id number] for Delmer Petetha POCT-GLUCOSE [id number] 11:14:00 Test Item Value Reference Range Interpretation Comments POC-GLUCOSE METER 91 mg/dL 70-110 : TESTED A T [address] (BEAKER) (test code = [address]) [place] [address]: Air Brush Operator/Techni daniel ID = [id number] for Nwad iufu, Kim POCT-GLUCOSE [id number] 11:14:00 Test Item Value Reference Range Interpretation Comments POC-GLUCOSE METER 75 mg/dL 70-110 : TESTED A T [address]17 (BEAKER) (test code = [address]) [place] [address]: Air Brush Operator/Techni daniel ID = [id number] for Estelle Serra SARS-COV2/RT-PCR ([facility])2020-08-10 16:15:00 Test Item Value Reference Range Interpretation Comments SARS-COV2/RT-PCR Negative Not Detected, Performanc e of the Xpert (test code = Negative, See Xpress [id number]) external report SARS-CoV-2/F poly/RSV test for linked test has only bee n established in nasopharyngeal swab specimens. Use of the Xpert Xpress SARS-CoV-2/Flu/ RSV test with other spec imen types has not b een assessed and pe rformance characteristics are unknown. As wit h any molecular test, mutations withi n the targeted geneti c regions identified by miguel ángel lopez Xpert Xpress SARS-CoV-2/Flu/ RSV test could affect [...] or ot her patient managem ent decisions. Resu lts from the Xpert Xpres s SARS-CoV-2/Flu/ RSV test should be corre lated with the clinic al history, epidem iological data, and other data available to th e clinician evalu ating the patient. Invali d test results may occ ur from improper specim en collection; preston lure to follow the cherrie mmended sample collecti on, handling, and s torage procedures; job hnical error. False ne gative results may occ ur if virus is presen t at levels below th e analytical limi t of detection (LOD: 131 copies/mL). Vir al nucleic acid ma y persist in vivo, indepe ndent of virus viability . Detection of an alyte target(s) does not imply that the corres ponding virus(es) are i nfectious or are the caus ative agents for clin ical symptoms. Recen t patient exposure to Flu Mist or other live atte nuated influenza vacci rickie may cause inaccurat e positive result s.This test has been a uthorized by FDA under an EUA for use by authoriz ed laboratories. T his test is only authori zed for the duration of the declaration lorena [...] sooner.Fact She et for Healthcare Prov iders: https://www.PaintZen.GLSS/ Documents/Xpert %20Xpress %18SRXA-BaJ-5-F poly-RSV/30 2-4508%20Rev.%2 0B%20HCP% 20Fact%20Sheet. pdfFact Sheet for Healt hcare Patients: https://www.PaintZen.GLSS/ Documents/Xpert %20Xpress %07UFSF-RpX-7-F poly-RSV/30 2-4507%20Rev.%2 0B%20Pati ent%20Fact%20Sh eet.pdf SARS-COV-2 SLSL Performed at:[facility] PERFORMING LAB [place] [address] (test code = Aron Recinos [id number]) [place] [address]x h: [phone] RAD, CHEST, 1 VIEW, NON [id number] 15:49:00Reason for exam:->New HemodialysisShould this be performed at the bedside?->Yes [facility] 1965 Sex: FFINAL REPORT CHEST AP PORTABLE SEMIERECT COMPARISON STUDY: 10/30/2018 History provided: Dialysis Radiographically normal-appearing heart and lungs. Tunneled dialysis catheter fromright jugular approach with catheter tip at the cavoatrial junction. Signed: Junito Mayberryort Verified Date/Time: 08/10/2020 15:49:39 Reading Location: [facility] Radiology Reading Room HEPATITIS B CORE ANTIBODY, [id number] 11:01:00 Test Item Value Reference Range Interpretation Comments HEPATITIS B CORE TOTAL ANTIBODY Nonreactive Nonreactive (BEAKER) (test code = 497) Air Brush Operator ID Chris PORTILLO MCOMPREHENSIVE METABOLIC [id number] 05:59:00 Test Item Value Reference Range Interpretation [...] S NOT APPLICABLE FOR DIALYSIS PATIEN TS. Air Brush Operator ID - LITOOperator ID - LITOOperator [...] (test code = 2801) HEPATITIS B SURFACE [id number] 17:24:00 Test Item Value Reference Range Interpretation Comments HEPATITIS B SURFACE ANTIGEN (2) Nonreactive Nonreactive (BEAKER) (test code = 2585) Air Brush Operator ID - MAYELIN, TUNNELED CATHETER [id number] 10:44:00Reason for Central Line/PICC?->Need for hemodialysis accessReason for exam:->[facility]emod[facility] : 1965 Sex: FFINAL REPORT Tunneled dialysis catheter insertion. History: Renal failure. Modality: Sonography and fluoroscopy. Sedation: Moderate sedation was administered. 1 mg of Versed and 50 mcg of fentanyl IV was used for moderate sedation monitored under my direction. Total intra-service time of sedation was 30 minutes. The patient's vital signs were monitored throughout the procedure and recorded in the patient's medical record by the nurse. [employer]: Rigoberto Rey M.D. Rda: None. Approach: Right internal jugular vein Estimated [...] not prepped, and hand hygiene, mask, head covering,and sterile gown for performing radiologist and scrub technologist. The skin was anesthetized with 2% lidocaine.Ultrasound evaluation showed a patent and compressible right internal jugular vein, whichwas punctured under direct real-time ultrasound guidance with a micropuncture needle. An ultrasound image was saved to PACS. A 0.018 inch wire was placed through the needle into the right atrium. A 4 Kuwaiti micropuncture sheath was placed and a 0.035 wire was advanced into the IVC. A subcutaneous tunnel was created in the right anterior chest wall by blunt dissection. A 19 cm tip to cuff 15.5 [place]i Duraflow 2 catheter was brought through the [...] sutured to the skin to secure its p lacement. The small jugular incision site was closed [...] fluoroscopic guidance and conscious sedation. Signed: Rigoberto Rey MDReport Verified Date/Time: 08/09/2020 10:44:42 Reading Location: [facility] Radiology Reading Room BASIC METABOLIC [id number] 04:46:00 Test Item Value Reference Range Interpretation [...] S NOT APPLICABLE FOR DIALYSIS PATIEN TS. Air Brush Operator ID - [id number] ID - [id number] ID - [id number] ID - [id number] ID - [id number] ID - [id number] ID - [id number] ID - [id number] ID - [id number] ID - [id number] ID - [id number] ID - [id number] ID - [id number] W/PLT COUNT & AUTO [id number] 04:27:00 Test Item Value Reference Range Interpretation [...] PERCENT (BEAKER) (test code = 2801) POCT-GLUCOSE [id number] 06:14:00 Test Item Value Reference Range Interpretation Comments POC-GLUCOSE METER 76 mg/dL 70-110 : TESTED A T [facility] [address] (BEAKER) (test code = [address] [facility] [address]) [place] [address]: Air Brush Operator/Techni daniel ID = [id number] for Tashia Rodney HEMOGLOBIN [id number] 05:40:00 Test Item Value Reference Range Interpretation Comments HEMOGLOBIN A1C (BEAKER) (test code = 4.4 % 4.3-6.1 368) Air Brush Operator ID - [id number] [id number] 20:58:00 Test Item Value Reference Range Interpretation Comments POC-GLUCOSE METER 118 mg/dL 70-110 H : TESTED A T [facility]SL [address]17 (BEAKER) (test code [address] [facility] [address], = [address]) [place] [address]: Air Brush Operator/Techni daniel ID = [id number] for Tashia Rodney VANCOMYCIN LEVEL, [id number] 08:10:00 Test Item Value Reference Range Interpretation Comments VANCOMYCIN TROUGH (BEAKER) (test 17.0 ug/mL 10.0-20.0 code = 522) Air Brush Operator ID - [id number] 05:26:00 Test Item Value Reference Range Interpretation Comments TRIGLYCERIDES (BEAKER) (test code = 55 mg/dL 540) CHOLESTEROL (BEAKER) (test code = 87 mg/dL 631) HDL CHOLESTEROL (BEAKER) (test code 23 mg/dL = 976) LDL CHOLESTEROL CALCULATED (BEAKER) 53 mg/dL (test code = 633) Triglyceride Reference Range: Low Risk <150 Borderline 150-199 High Risk 200- 499 Very High Risk >=500Cholesterol Reference Range: Low Risk <200 Borderline 200-239 High Risk >240HDL Cholesterol Reference Range: Low Risk >=60 High Risk <40LDL Cholesterol Reference Range: Optimal <100 Near Optimal 100-129 Borderline 130-159 High 160-189 Very High >=190 Air Brush Operator ID - [id number] ID - [id number] ID - [id number] METABOLIC [id number] 05:26:00 Test Item Value Reference Range Interpretation [...] S NOT APPLICABLE FOR DIALYSIS PATIEN TS. Air Brush Operator ID - [id number] ID - [id number] ID - [id number] ID - [id number] ID - [id number] ID - [id number] ID - [id number] ID - [id number] ID - [id number] ID - [id number] 05:18:00 Test Item Value Reference Range Interpretation Comments MAGNESIUM (BEAKER) (test code = 2.0 mg/dL 1.5-3.0 627) Air Brush Operator ID - [id number] ID - [id number] ID - [id number] ID - [id number] 05:16:00 Test Item Value Reference Range Interpretation Comments PHOSPHORUS (BEAKER) (test code = 4.8 mg/dL 2.5-4.5 H 604) Air Brush Operator ID - [id number] W/PLT COUNT & AUTO [id number] 05:10:00 Test Item Value Reference Range Interpretation [...] PERCENT (BEAKER) (test code = 2801) PROTHROMBIN [id number] 04:59:00 Test Item Value Reference Range Interpretation Comments PROTIME (BEAKER) 13.2 seconds 9.3-12.0 H Final Infor mation (test code = 759) (Auto Outp ut) INR (BEAKER) (test 1.20 See_Comment Final Inf ormation code = 370) (Auto Output) [Automated mess age] The system [employer] generated this result transmitted ref erence range: <=5.90. The reference range was not used to int erpret this result as normal/abnormal . RECOMMENDED COUMADIN/WARFARIN INR THERAPY RANGESSTANDARD DOSE: 2.0 - 3.0 Includes: PROPHYLAXIS for venous thrombosis, systemic embolization; TREATMENT for venous thrombosis and/or pulmonary embolus.HIGH RISK: Target INR is 2.5-3.5 for patients with mechanical heart valves.HEMOGLOBIN [id number] 04:50:00 Test Item Value Reference Range Interpretation Comments HEMOGLOBIN A1C (BEAKER) (test code = 4.5 % 4.3-6.1 368) Air Brush Operator ID - [id number] FLUID CULTURE + GRAM [id number] 12:18:00 Test Item Value Reference Range Interpretation Comments CULTURE (BEAKER) (test No growth code = 1095) GRAM STAIN RESULT <1+ White blood cells (BEAKER) (test code = seen 1123) GRAM STAIN RESULT No organisms seen (AKER) (test code = 71734) BLOOD [id number] 08:01:00 Test Item Value Reference Range Interpretation Comments CULTURE (BEAKER) (test No growth in 5 days code = 1095) BLOOD [id number] 08:01:00 Test Item Value Reference Range Interpretation Comments CULTURE (BEAKER) (test No growth in 5 days code = 1095) POCT-GLUCOSE [id number] 14:58:00 Test Item Value Reference Range Interpretation Comments POC-GLUCOSE METER 101 mg/dL 70-110 TESTED AT [place] [address] ([facility]) (test code = [facility] 1538) [address] HEMOGLOBIN AND [id number] 12:19:00 Test Item Value Reference Range Interpretation Comments HEMOGLOBIN ([facility]) (test code = 7.5 GM/DL 11.2-15.7 L 410) HEMATOCRIT ([facility]) (test code = 23.1 % 34.1-44.9 L 411) POCT-GLUCOSE [id number] 08:37:00 Test Item Value Reference Range Interpretation Comments POC-GLUCOSE METER 168 mg/dL 70-110 H TESTED AT [place] [address] ([facility]) (test code = [facility] 1538) [address] LACTIC ACID, [id number] 07:04:00 Test Item Value Reference Range Interpretation Comments LACTATE BLOOD VENOUS 1.9 mmol/L 0.5-2.2 Specime n slightly (2) ([facility]) (test hemolyzed code = 2872) POCT-GLUCOSE [id number] 21:25:00 Test Item Value Reference Range Interpretation Comments POC-GLUCOSE METER 102 mg/dL 70-110 TESTED AT [place] [address] ([facility]) (test code = [facility] 1538) [address] POCT-GLUCOSE [id number] 18:50:00 Test Item Value Reference Range Interpretation Comments POC-GLUCOSE METER 91 mg/dL 70-110 TESTED AT [place] [address] ([facility]) (test code = [facility] [address] 1538) POCT-GLUCOSE [id number] 13:23:00 Test Item Value Reference Range Interpretation Comments POC-GLUCOSE METER 114 mg/dL 70-110 H TESTED AT [facility] 6720 (BEAKER) (test code = [place] [facility] 1538) [address] POCT-GLUCOSE [id number] 09:11:00 Test Item Value Reference Range Interpretation Comments POC-GLUCOSE METER 131 mg/dL 70-110 H TESTED AT [facility] 6720 (BEAKER) (test code = [place] [facility] 1538) [address] BASIC METABOLIC [id number] 06:45:00 Test Item Value Reference Range Interpretation [...] S NOT APPLICABLE FOR DIALYSIS PATIEN TS. [id number] 06:40:00 Test Item Value Reference Range Interpretation Comments PHOSPHORUS (BEAKER) (test code = 6.5 mg/dL 2.3-4.7 H 604) [id number] 06:40:00 Test Item Value Reference Range Interpretation Comments MAGNESIUM (BEAKER) (test code = 1.9 mg/dL 1.6-2.6 627) LACTIC ACID, [id number] 06:12:00 Test Item Value Reference Range Interpretation Comments LACTATE BLOOD VENOUS (2) (BEAKER) 2.3 mmol/L 0.5-2.2 H (test code = 2872) CBC W/PLT COUNT & AUTO [id number] 06:05:00 Test Item Value Reference Range Interpretation [...] PERCENT (BEAKER) (test code = 2801) POCT-GLUCOSE [id number] 21:04:00 Test Item Value Reference Range Interpretation Comments POC-GLUCOSE METER 135 mg/dL 70-110 H TESTED AT [facility] 6720 (BEAKER) (test code = [facility] [place] 1538) [address] [id number] 17:08:00 Test Item Value Reference Range Interpretation Comments FERRITIN (BEAKER) (test code = 1367 ng/mL 5-275 H 361) POCT-GLUCOSE [id number] 17:00:00 Test Item Value Reference Range Interpretation Comments POC-GLUCOSE METER 137 mg/dL 70-110 H TESTED AT [facility] 6720 (BEAKER) (test code = [facility] 1538) [address] IRON, TIBC, % SAT. (WITHOUT FERRITIN)[id number] 16:48:00 Test Item Value Reference Range Interpretation Comments IRON (BEAKER) (test code = 547) 53.0 ug/dL 40.0-160.0 TOTAL IRON BINDING CAPACITY 135 ug/dL 250-450 L (BEAKER) (test code = 769) IRON % SATURATION (2) (BEAKER) 39 % 20-55 (test code = 2590) RETICULOCYTE [id number] 16:47:00 Test Item Value Reference Range Interpretation Comments RETICULOCYTE COUNT PCT (BEAKER) (test 2.1 % 0.5-1.7 H code = 575) LACTIC ACID, [id number] 14:17:00 Test Item Value Reference Range Interpretation Comments LACTATE BLOOD VENOUS (2) (BEAKER) 1.7 mmol/L 0.5-2.2 (test code = 2872) HEMOGLOBIN AND [id number] 14:03:00 Test Item Value Reference Range Interpretation Comments HEMOGLOBIN (BEAKER) (test code = 6.4 GM/DL 11.2-15.7 L 410) HEMATOCRIT (BEAKER) (test code = 20.2 % 34.1-44.9 L 411) POCT-GLUCOSE [id number] 11:11:00 Test Item Value Reference Range Interpretation Comments POC-GLUCOSE METER 143 mg/dL 70-110 H TESTED AT [facility] 6720 ([facility]) (test code = [place] 1538) [address] [id number] 03:47:00 Test Item Value Reference Range Interpretation Comments PROCALCITONIN (BEAKER) (test code 0.76 ng/mL <0.05 H = 3036) SEPSIS RISK (ng/mL)Low: 0.05-0.50Intermediate: 0.51-2.00High: >=2.01 [id number] 02:58:00 Test Item Value Reference Range Interpretation Comments PHOSPHORUS (BEAKER) (test code = 6.8 mg/dL 2.3-4.7 H 604) [id number] 02:58:00 Test Item Value Reference Range Interpretation Comments MAGNESIUM (BEAKER) (test code = 1.9 mg/dL 1.6-2.6 627) LACTIC ACID, [id number] 02:53:00 Test Item Value Reference Range Interpretation Comments LACTATE BLOOD VENOUS 1.6 mmol/L 0.5-2.2 Specime n slightly (2) [facility] (test hemolyzed code = 2872) RAD, CHEST, 1 VIEW, NON [id number] 02:31:00Reason for exam:->altered mental statusShould this be [...] IMPRESSION: No acute cardiopulmonary abnormality. Signed: Bernardo Pleitez Verified Date/Time: 10/30/2018 02:31:36 OXYGEN SATURATION, [id number] 02:25:00 Test Item Value Reference Range Interpretation Comments O2 SATURATION (MEASURED) (AKER) 75.1 % (test code = 1455) If patient has internal jugular ( IJ) or subclavian central line or PICC line. Draw from distal port. Label as central venous oxygen.CBC W/PLT COUNT & AUTO [id number] 00:56:00 Test Item Value Reference Range Interpretation [...] (BEAKER) (test code = 2801) COMPREHENSIVE METABOLIC [id number] 00:46:00 Test Item Value Reference Range Interpretation [...] APPLICABLE FOR DIALYSIS PATIEN TS. LACTIC ACID, [id number] 00:27:00 Test Item Value Reference Range Interpretation Comments LACTATE BLOOD VENOUS (2) (BEAKER) 1.9 mmol/L 0.5-2.2 (test code = 7082) BLOOD GAS, [id number] 00:24:00 Test Item Value Reference Range Interpretation [...] (test code = 1819) 21.0 % POCT-GLUCOSE [id number] 23:54:00 Test Item Value Reference Range Interpretation Comments POC-GLUCOSE METER 249 mg/dL 70-110 H TESTED AT [facility] 6720 (BEAKER) (test code = [place] 1538) [address] BODY FLUID CELL COUNT WITH [id number] 21:57:00 Test Item Value Reference Range Interpretation [...] (test code = 2873) C. DIFFICILE GDH [id number] 10:06:00 Test Item Value Reference Range Interpretation Comments CDT TOXIN (test code Positive Negative A = [id number]) CDT GDH ANTIGEN Positive Negative A Confirms Beti stridium (test code = difficile-assoc iated [id number]) infection.First line therapy - oral Vancomycin. Con tinue enteric isolati on until 72 hours after treatment is discontinued and symptoms have r esolved. Testing performed by [employer] Rapid Cassette Assay. For GDH, published sensitivity of the assay is 98.7% compared to cytotoxicity testing. For Toxin AB, published sensitivity is 87.8% and specificity 99.4% compared to cytotoxicity testing.Verification of kit performance was done by the [facility]biology[facility] prior to clinical use.POCT-GLUCOSE [id number] 09:14:00 Test Item Value Reference Range Interpretation Comments POC-GLUCOSE METER 109 mg/dL 70-110 TESTED AT [facility] 6720 (CARLY) (test code = [place] 1538) [address] [id number] 08:46:00 Test Item Value Reference Range Interpretation Comments PROCALCITONIN (AKER) (test code 0.67 ng/mL <0.05 H = 3036) SEPSIS RISK (ng/mL)Low: 0.05-0.50Intermediate: 0.51-2.00High: >=2.01CBC W/PLT COUNT & AUTO [id number] 08:36:00 Test Item Value Reference Range Interpretation Comments WHITE BLOOD CELL COUNT (AKER) 11.1 K/ L 3.5-10.5 H (test code = 775) RED BLOOD CELL COUNT (AKER) 2.32 M/ L 3.93-5.22 L (test code = 761) HEMOGLOBIN (BEAKER) (test code = 7.4 GM/DL 11.2-15.7 L 410) HEMATOCRIT (BEAKER) (test code = 23.1 % 34.1-44.9 L 411) MEAN CORPUSCULAR VOLUME (AKER) 99.6 fL 79.4-94.8 H (test code = [...] % 0-1 PERCENT (BEAKER) (test code = 9831) VITAMIN [id number] 07:12:00 Test Item Value Reference Range Interpretation Comments VITAMIN B12 (BEAKER) (test code = 680 pg/mL 213-816 774) TSH/FREE T4 IF [id number] 07:12:00 Test Item Value Reference Range Interpretation Comments THYROID STIMULATING HORMONE 0.94 uIU/mL 0.35-4.94 (BEAKER) (test code = 772) OSMOLALITY, [id number] 07:06:00 Test Item Value Reference Range Interpretation Comments OSMOLALITY, SERUM (BEAKER) (test 296 mOsm/kg 275-295 H code = 615) BASIC METABOLIC [id number] 06:11:00 Test Item Value Reference Range Interpretation [...] S NOT APPLICABLE FOR DIALYSIS PATIEN TS. [id number] 06:05:00 Test Item Value Reference Range Interpretation Comments PHOSPHORUS (BEAKER) (test code = 7.4 mg/dL 2.3-4.7 H 604) [id number] 06:05:00 Test Item Value Reference Range Interpretation Comments MAGNESIUM (BEAKER) (test code = 2.0 mg/dL 1.6-2.6 627) HEPATIC FUNCTION [id number] 06:05:00 Test Item Value Reference Range Interpretation [...] code = 39 U/L 6-55 347) C-REACTIVE [id number] 06:05:00 Test Item Value Reference Range Interpretation Comments C-REACTIVE PROTEIN (BEAKER) (test 1.72 mg/dL 0.00-0.50 H code = 676) [id number] 05:56:00 Test Item Value Reference Range Interpretation Comments AMMONIA (BEAKER) (test code = 348) 16 mol/L 18-72 L RAD, CHEST, 1 VIEW, NON [id number] 21:14:00Reason for exam:->chest painIs the patient ?->UnknownShould [facility] be performed [facility]?->YesFINAL REPORT Chest, 1 view. History: Chest pain Comparison: Plain radiograph the chest dated 01/15/2018.. Findings: The cardiomediastinal silhouette and pulmonary vasculature are within normal limits for a portable exam. The lungs are clear without evidence of consolidation or effusion. The soft tissues and osseous structures are intact. IMPRESSION: No acute cardiopulmonary abnormality. Signed: Bernardo Pleitezzulma Verified Date/Time: 10/28/2018 21:14:02 URINALYSIS [id number] 20:54:00 Test Item Value Reference Range Interpretation Comments RBC UA (BEAKER) (test code = 519) 1 /HPF WBC UA (BEAKER) (test code = 520) 10 /HPF SQUAMOUS EPITHELIAL (BEAKER) (test 5 /HPF code = 516) HYALINE CASTS (BEAKER) (test code = 2 /LPF 514) URINALYSIS WITH MICROSCOPIC IF [id number] 20:52:00 Test Item Value Reference Range Interpretation [...] SOURCE(BEAKER) (test code = 2795) BASIC METABOLIC [id number] 20:32:00 Test Item Value Reference Range Interpretation [...] S NOT APPLICABLE FOR DIALYSIS PATIEN TS. [id number] 20:29:00 Test Item Value Reference Range Interpretation Comments MAGNESIUM (BEAKER) (test code = 2.0 mg/dL 1.6-2.6 627) [id number] 20:29:00 Test Item Value Reference Range Interpretation Comments LIPASE (BEAKER) (test code = 749) 65 U/L 8-78 [id number] 20:10:00 Test Item Value Reference Range Interpretation [...] RISK: Target INR is 2.5-3.5 for patients wiht mechanical heart valves.CBC W/PLT COUNT & AUTO [id number] 20:05:00 Test Item Value Reference Range Interpretation [...] (test code = 2801) CT, BRAIN, WITHOUT [id number] 19:38:00Reason for exam:->ALTERED MENTAL STATUSReason for exam:->GENERALIZED WEAKNESS, NOT ASSOCIATED WITH EXTREMITIESIs the patient ?->UnknownWhat is the patient's sedation requirement?->No SedationFINAL REPORT CT, BRAIN, WITHOUT CONTRAST CLINICAL INDICATION: Confusion/delirium, altered LOC, unexplainedALTERED MENTAL STATUSGENERALIZED WEAKNESS, NOT ASSOCIATED WITH EXTREMITIESCOMPARISON: None TECHNIQUE: Noncontrast axial CT imaging of the brain and skull. DOSE REDUCTION: Dose modulation, iterative reconstruction, and/or weight-based adjustment of the mA/kV was utilized to reduce the radiation dose to as low as reasonably achievable. FINDINGS: Abnormal hypoattenuation within the lentiform nuclei, portions of the external capsule and minimally within the thalami bilaterally. No intracranial hemorrhage, midline shift or mass effect. Midline structures are normally developed. Mild chronic microvascular ischemic changes of the periventricular and subcortical white matter are present. No hydrocephalus. Orbits are within normal limits. No obstructive paranasal sinus disease.IMPRESSION: Abnormal hypoattenuation within the basal ganglia bilaterally. Given bilaterality, findings are most suggestive of toxic injury (including toxic ingestion). Less likely, this may be secondary to severe metabolic derangement or hypotensive hypoxic injury. Given limited involvement of the thalami, deep venous thrombosis is not favored. If there is persistent clinical concern for intracranial pathology, MR examination is recommended for further characterization. Signed: Ruth Benítez MDReport Verified Date/Time: 10/28/2018 19:38:10 Reading Location: [facility] C013V Neuro Reading Room Electro nically signed by: RUTH BENÍTEZ MD on 10/28/2018 07:38 PMHEMOGLOBIN [id number] 07:56:00 Test Item Value Reference Range Interpretation Comments HEMOGLOBIN A1C (BEAKER) (test code = 6.1 % 4.3-6.1 368) VITAMIN [id number] 06:59:00 Test Item Value Reference Range Interpretation Comments VITAMIN B12 (BEAKER) (test code = 483 pg/mL 213-816 774) TSH/FREE T4 IF [id number] 06:59:00 Test Item Value Reference Range Interpretation Comments THYROID STIMULATING HORMONE 1.74 uIU/mL 0.35-4.94 (BEAKER) (test code = 772) BASIC METABOLIC [id number] 06:04:00 Test Item Value Reference Range Interpretation [...] NOT APPLICABLE FOR DIALYSIS PATIEN TS. LIPID [id number] 05:54:00 Test Item Value Reference Range Interpretation [...] Very High >=190CBC W/PLT COUNT & AUTO [id number] 04:52:00 Test Item Value Reference Range Interpretation [...] (test code = 2801) MR, BRAIN, WITHOUT [id number] 04:11:00FINAL REPORT MRI Brain without contrast Clinical History: TIA/Stroke Technique:MRI of the brain utilizing axial T2, FLAIR, GRE, DWI; sagittal and coronal T1-weighted images. MRA of the head utilizing 3-D yshk-fq-fapgyz technique, with 3-D reconstructions. MRA of the neck utilizing 2-D and 3-D sscj-jg-sdzhje technique, with 3-D reconstructions. Comparisons: None Findings:MRI brainThere is no evidence of acute infarct or hemorrhage. Symmetric T2/FLAIR signal hyperintensity in thebilateral putamen. Few bilateral T2 and FLAIR hyperintense [...] vertebral arteries in the neck. IMPRESSION:MRI brain: No evidence of acute infarct, hemorrhage, or hydrocephalus. Symmetric FLAIR signal hyperintensity within the bilateral containment, nonspecific however can be seen in setting of metabolic derangement such as uremicencephalopathy or extrapontine osmotic myelinolysis. MRA head: No evidence for a major campo of [place] proximal branch vessel occlusion. MRA neck: No evidence of hemodynamically significant stenosis in the cervical carotid or vertebral arteries by NASCET criteria. Signed: Bernardo Pleitez MDReportVerified Date/Time: 08/19/2018 04:11:07 Reading Location: [address] Reading Room MR, MRA, BRAIN, WITHOUT [id number] 04:11:00FINAL REPORT MRI Brain without contrast Clinical History: TIA/Stroke Technique:MRI of the brain utilizing axial T2, FLAIR, GRE, DWI; sagittal and coronal T1-weighted images. MRA of the head utilizing 3-D ejpb-bg-iaxbgc technique, with 3-D reconstructions. MRA of the neck utilizing 2-D and 3-D zqzo-az-jsqsjo technique, with 3-D reconstructions. Comparisons: None Findings:MRI brainThere is no evidence of acute infarct or hemorrhage. Symmetric T2/FLAIR signal hyperintensity in thebilateral putamen. Few bilateral T2 and FLAIR hyperintense [...] vertebral arteries in the neck. IMPRESSION:MRI brain: No evidence of acute infarct, hemorrhage, or hydrocephalus. Symmetric FLAIR signal hyperintensity within the bilateral containment, nonspecific however can be seen in setting of metabolic derangement such as uremicencephalopathy or extrapontine osmotic myelinolysis. MRA head: No evidence for a major campo of [place] proximal branch vessel occlusion. MRA neck: No evidence of hemodynamically significant stenosis in the cervical carotid or vertebral arteries by NASCET criteria. Signed: Bernardo Pleitez MDReportVerified Date/Time: 08/19/2018 04:11:07 Reading Location: [address] Reading Room MR, MRA, NECK, WITHOUT IV [id number] 04:11:00Reason for exam:->Stroke/TIAFINAL REPORT MRI Brain without contrast Clinical History: TIA/Stroke Technique:MRI of the brain utilizing axial T2, FLAIR, GRE, DWI; sagittal and coronal T1-weighted images. MRA of the head utilizing 3-D tmzv-gg-pyqbfg technique, with 3-D reconstructions. MRA of the neck utilizing 2- D and 3-D arva-ny-jyvdly technique, with 3-D reconstructions. Comparisons: None Findings:MRI brainThere is no evidence of acute infarct or hemorrhage. Symmetric T2/FLAIR signal hyperintensity in thebilateral putamen. Few bilateral T2 and FLAIR hyperintense [...] vertebral arteries in the neck. IMPRESSION:MRI brain: No evidence of acute infarct, hemorrhage, or hydrocephalus. Symmetric FLAIR signal hyperintensity within the bilateral containment, nonspecific however can be seen in setting of metabolic derangement such as uremic encephalopathy or extrapontine osmotic myelinolysis. MRA head: No evidence for a major campo of [place] proximal branch vessel occlusion. MRA neck: No evidence of hemodynamically significant stenosis in the cervical carotid or vertebral arteries by NASCET criteria. Signed: Bernardo Pleitez MDReportVerified Date/Time: 08/19/2018 04:11:07 Reading Location: [address] Reading Room POCT-GLUCOSE [id number] 21:55:00 Test Item Value Reference Range Interpretation Comments POC-GLUCOSE METER 115 mg/dL 70-110 H TESTED AT [place] [address] ([facility]) (test code = [facility] 1538) [address] POCT-GLUCOSE [id number] 18:29:00 Test Item Value Reference Range Interpretation Comments POC-GLUCOSE METER 93 mg/dL 70-110 TESTED AT [place] [address] ([facility] (test code = [facility] [address] 1538) CT, CTA [id number] 10:10:00Reason for Exam:->assess iliac vessels, pre kidney transplantAddendum BeginsREPORT STATUS:A Addendum: I agree with the previously described non vascular findings. Signed: Cristopher Fitzpatrick MDReport Verified Date/Time: 06/27/2018 10:10:18 Reading Location: [place] [address] Angio Body Reading RoomAddendum EndsFINAL REPORT CT angiography of the abdominal aorta and pelvic arteries, 25-Jun-18 INDICATION: This is a 53 year old female with end-stage renal disease, presents for pretransplant assessment. This study is performed in anattempt to avoid an invasive procedure. TECHNIQUE: Spiral acquisition before and during intravenous contrast administration using a GE multidetector CT scanner. Images were obtained before and during the dynamic passage of intravenous contrast material. Multi-planar 3-D volume-rendering reconstructionwas performed using an independent workstation interactively by the interpreting physician as well as the 3-D specialist for optimal visualisation of the abdominal aorta, pelvic arteries, and its proximal branches. Please refer to the contrast sheet scanned in the EPIC system for the amount and route of contrast given. This exam was performed according to our departmental dose-optimisation programme,which includes automated exposure control, adjustment of the mA and/or kV according to patient size and/or use of iterative reconstruction technique. Dose modulation, iterative reconstruction, and/or weight based adjustment of the mA/kV was utilized to reduce the radiation dose to as low as reasonablyachievable. FINDINGS: VASCULAR: The abdominal aorta is normal [...] except for minimal calcific atherosclerosis identified proximally. Pattern Keeper dimensions of the left and the right external iliac arteries are 6 and 6 mm, respectively. Similarly, the associated pelvic veins are patent with no venous thrombosis identified. Pattern Keeper dimensions of the left and the right external iliac veins are 11 and 10 mm, respectively. Single left and right renal arteries are seen. Cavitation is seen at the takeoff of the left renal artery. The celiac axis, S MA, and YOLA are widely patent. There are single left and right renal veins that drain normally into inferior vena cava. NON-VASCULAR: The lung bases are unremarkable. No pleural effusion is identified.In the abdomen, the liver and spleen appears unremarkable. The liver edge is smooth. No abnormal enhancing structures identified. Multiple small gallstones are seen, with no wall thickening or biliary ductal dilation identified. The adrenal glands are not enlarged. The pancreas appears grossly unremarkable. Patient has end-stage renal disease status. No hydronephrosis or perirenal fluid collection isseen. There could be nonobstructive renal stones identified bilaterally in the precontrast series for example at image 25. Hypodensities are identified in the lateral aspect of the right kidney, too small to characterise. Bowel is not well assessed by CT angiography as enteric contrast is not given. No obvious bowel dilation is identified. Scattered colonic diverticulum is seen with no inflammatory changes identified. A catheter is identified likely represent patient's dialysis catheter, with tip inthe pelvis. No free air is identified. Some trace free fluid is identified in the dependent portion of the pelvis. The bladder appears unremarkable. The uterus is not identified. No obvious abnormal adnexal mass is seen and CT is not optimised in the assessment of pelvic gynaecological structures. No significant retroperitoneal adenopathy is identified. In the bony windows, no acute bony pathology isseen. Mild degenerative changes is noted. CONCLUSIONS: 1. The abdominal aorta is normal in course, calibre and contour. There is no evidence of acute aortic pathology, specifically, there is no dissection, intramural hematoma, or contained rupture. Quantitative dimension of the abdominal aorta are as noted. The pelvic arteries and veins are widely patent with no arterial stenosis or venous thrombosis identified. Pattern Keeper dimensions of the left and the right external iliac arteries and veins are as described above. 2. Widely patent mesenteric arteries. Patent renal arteries. 3. Other findings as described above. 4. An addendum will be dictated regarding the non-vascular findings by the Operational Intelligence Analyst Radiologist. Signed: Samson Mcgill MDReport Verified Date/Time: 06/25/2018 09:45:12 Reading Location: [place] [address] Cardiology MRI OCCULT BLOOD, [id number] 00:49:00 Test Item Value Reference Range Interpretation Comments FECAL OCCULT BLOOD (BEAKER) (test Negative Negative code = 618) U/S, ABDOMINAL, [id number] 13:53:00Reason for Exam:->pre transplant evaluationFINAL REPORT Abdominal ultrasound Clinical History: End-stage renal disease, prekidney transplant evaluation Comparison: None available Findings:Sonographic evaluation of the the abdomen is performed. The pancreas is not well visualized secondary to prominent adjacent bowel gas. The liver is normal in size measuring 15.3 cm in length. The hepatic parenchyma is homogeneous withoutevidence for focal abnormality. The main portal vein is patent with a diameter 0.7 cm, within normallimits. Shadowing stones are identified within the lumen of the gallbladder. There is no evidence for gallbladder wall thickening or pericholecystic fluid. There [...] solid renal mass, hydronephrosis, or shadowing calculi. TheIVC is unremarkable. The proximal aorta is normal in caliber. The distal aorta is not well visualized secondary to prominent adjacent bowel gas. There is no ascites or pleural fluid visualized. Impression: 1. Sonographic findings suggestive of chronic medical renal disease. 2. Cholelithiasis without sonographic evidence for acute cholecystitis. Signed: Edwar Thayer MDReport Verified Date/Time: 03/01/2018 13:53:56 Reading Location: [address] Ultrasound Reading Room OCCULT BLOOD, [id number] 11:11:00 Test Item Value Reference Range Interpretation Comments FECAL OCCULT BLOOD (BEAKER) (test Negative Negative code = 618) [id number] 10:23:00 Test Item Value Reference Range Interpretation Comments PHOSPHORUS (BEAKER) (test code = 3.9 mg/dL 2.3-4.7 604) PROTHROMBIN [id number] 10:21:00 Test Item Value Reference Range Interpretation Comments PROTIME (BEAKER) (test code = 13.2 seconds 11.7-14.7 759) INR (BEAKER) (test code = 370) 1.0 <=5.9 RECOMMENDED COUMADIN/WARFARIN INR THERAPY RANGESSTANDARD DOSE: 2.0 - 3.0 Includes: PROPHYLAXIS for venous thrombosis, systemic embolization; TREATMENT for venous thrombosis and/or pulmonary embolus.HIGH RISK: Target INR is 2.5-3.5 for patients with mechanical heart valves.URINE [id number] 10:03:00 Test Item Value Reference Range Interpretation Comments CULTURE (BEAKER) (test 40-49,000 col/mL skin code = 1095) johnny CYTOMEGALOVIRUS ANTIBODY, [id number] 10:10:00 Test Item Value Reference Range Interpretation Comments CYTOMEGALOVIRUS, IGG (BEAKER) Positive Negative, Equivocal A (test code = 3429) CMV IgG Result Interpretation: </= 0.8 Al Negative 0.9-1.0 Al Equivocal >/=1.1 Al PositiveCYTOMEGALOVIRUS ANTIBODY, [id number] 10:10:00 Test Item Value Reference Range Interpretation Comments CYTOMEGALOVIRUS IGM ANTIBODY Positive Negative, Equivocal A (BEAKER) (test code = 3437) CMV IgM Result Interpretation: </= 0.8 Al Negative 0.9-1.0 Al Equivocal >/= 1.1 Al PositiveEBV ANTIBODY, [id number] 10:10:00 Test Item Value Reference Range Interpretation Comments ASHELY JENNINGS VIRAL CAPSID Positive Negative, Equivocal A ANTIGEN IGG (BEAKER) (test code = 3415) Ashely Jennings Viral Capsid Antigen IgG Result Interpretation: </= 0.8 Al Negative 0.9-1.0 Al Equivocal >/= 1.1 Al PositiveEBV ANTIBODY, [id number] 10:10:00 Test Item Value Reference Range Interpretation Comments ASHEYL JENNINGS VIRAL CAPSID Negative Negative, Equivocal ANTIGEN IGM (BEAKER) (test code = 3418) Ashely Jennings Viral Capsid Antigen IgM Result Interpretation: </= 0.8 Al Negative 0.9-1.0 Al Equivocal >/= 1.1 Al PositiveVARICELLA ZOSTER ANTIBODY, [id number] 10:09:00 Test Item Value Reference Range Interpretation Comments VARICELLA ZOSTER IGG (AL) (BEAKER) > (test code = 3197) VARICELLA ZOSTER RESULT INTERPRETATIONS: <=0.8 Al Nonreactive: Presumed non- immune to VZV 0.9-1.0Al Equivocal >=1.1 Al Reactive: Presumed immune to VZV [id number] 07:38:00 Test Item Value Reference Range Interpretation Comments RPR SCREEN (BEAKER) (test code = Nonreactive Nonreactive 420) CBC W/PLT COUNT & AUTO [id number] 14:38:00 Test Item Value Reference Range Interpretation [...] (test code = 2801) RAD, CHEST, 2 [id number] 12:48:00Reason for Exam:->pre transplant evaluationFINAL REPORT PA and Lateral views of the chest dated 01/15/2018 Clinical information: pre transplant evaluation Comment: Heart is normal in size. Pulmonary vasculature is unremarkable. Lungs are clear. No pulmonary infiltrate or pleural effusion is present. Impression: No active ca rdiopulmonary disease. Signed: Daiana Anaya Verified Date/Time: 01/15/2018 12:48:30 Reading Location: [address] Radiology Reading Room HEMOGLOBIN [id number] 11:27:00 Test Item Value Reference Range Interpretation Comments HEMOGLOBIN A1C (BEAKER) (test code = 5.6 % 4.3-6.1 368) URINALYSIS W/ [id number] 11:23:00 Test Item Value Reference Range Interpretation [...] = 1585) Rare SOURCE(BEAKER) (test code = 2455) COMPREHENSIVE METABOLIC [id number] 10:41:00 Test Item Value Reference Range Interpretation [...] NOT APPLICABLE FOR DIALYSIS PATIEN TS. URIC [id number] 10:04:00 Test Item Value Reference Range Interpretation [...] H code = 635) HEPATITIS B SURFACE [id number] 10:03:00 Test Item Value Reference Range Interpretation Comments HEPATITIS B SURFACE ANTIGEN (2) Nonreactive Nonreactive (BEAKER) (test code = 2585) HEPATITIS B SURFACE [id number] 10:03:00 Test Item Value Reference Range Interpretation Comments HEPATITIS B SURFACE ANTIBODY 69.3 mIU/mL <8.0 H (BEAKER) (test code = 647) HEPATITIS B CORE ANTIBODY, [id number] 10:03:00 Test Item Value Reference Range Interpretation Comments HEPATITIS B CORE IGM ANTIBODY Nonreactive Nonreactive (BEAKER) (test code = 645) HEPATITIS C [id number] 10:03:00 Test Item Value Reference Range Interpretation Comments HEPATITIS C ANTIBODY (BEAKER) Nonreactive Nonreactive (test code = 367) HIV-1 ANTIGEN WITH HIV-1/2 [id number] 10:03:00 Test Item Value Reference Range Interpretation Comments HIV-1 ANTIGEN WITH HIV 1\T\2 Nonreactive Nonreactive ANTIBODY (2) (BEAKER) (test code = 2586) PTH, [id number] 09:45:00 Test Item Value Reference Range Interpretation Comments PARATHYROID HORMONE INTACT 308.0 pg/mL 8.5-72.5 H (BEAKER) (test code = 577) [id number] 09:31:00 Test Item Value Reference Range Interpretation Comments PROTIME (BEAKER) (test code = 14.4 seconds 11.7-14.7 759) INR (BEAKER) (test code = 370) 1.1 <=5.9 PARTIAL THROMBOPLASTIN TIME 29.8 seconds 22.5-36.0 (CARLY) (test code = 760) RECOMMENDED COUMADIN/WARFARIN INR THERAPY RANGESSTANDARD DOSE: 2.0 - 3.0 Includes: PROPHYLAXIS for venous thrombosis, systemic embolization; TREATMENT for venous thrombosis and/or pulmonary embolus.HIGH RISK: Target INR is 2.5-3.5 for patients with mechanical heart valves.
--- NOTE | 2022-02-10 16:48 | RAD REPORT ---
EXAM DESCRIPTION: RAD - Chest Single View - 02/10/2022 4:38 pm CLINICAL HISTORY: COUGH COMPARISON: Chest Single View dated 09/30/2021; Chest Single View dated 08/10/2021; Abdomen 1 View (KUB ) dated 08/06/2020; Chest Single View dated 08/02/2020 FINDINGS: Lines: Right IJ approach dialysis catheter with tip overlying the right atrium. Lungs: No evidence of edema or pneumonia. Pleural: No significant pleural effusions or pneumothorax. Cardiac: The heart size is within normal limits. Mediastinum: Within normal limits. Bones: No acute fractures. Other: None IMPRESSION: No acute cardiopulmonary disease.
[2022-02-10] MEDS ORDERED: NA CHLORIDE 0.9% 500 ML ONE (16:55)
[2022-02-10] MEDS ORDERED: MORPHINE 2 MG/ML SYR ONE (16:55)
[2022-02-10] MEDS ORDERED: ONDANSETRON 4 MG/2 ML VIAL ONE (16:55)
--- NOTE | 2022-02-10 17:30 | RAD REPORT ---
EXAM DESCRIPTION: CT - Head C Spine Cap Wo Con - 02/10/2022 5:11 pm CLINICAL HISTORY: Trauma, head and neck injury. Chest, abdomen and pelvis pain. fall COMPARISON: Head C Spine Mpr Wo Con dated 09/27/2021; Head Brain Wo Cont dated 04/08/2017 TECHNIQUE: CT head without contrast. CT cervical spine without contrast with coronal and sagittal reformatted images. CT chest, abdomen and pelvis without contrast with coronal and sagittal reformatted images of the spi ne. All CT scans are performed using dose optimization technique as appropriate and may include automated exposure control or mA/KV adjustment according to patient size. FINDINGS: CT HEAD WITHOUT CONTRAST: No intracranial hemorrhage, hydrocephalus or extra-axial fluid collection. Remote bilateral basal ga nglia infarcts. The paranasal sinuses and mastoids are clear. The calvarium is intact. CT CERVICAL SPINE WITHOUT CONTRAST: No fracture or subluxation. The prevertebral soft tissues are normal in thickness.Mild multilevel ce rvical spondylosis. Carotid artery calcifications. Right IJ approach dialysis catheter. CT CHEST, ABDOMEN, PELVIS WITHOUT CONTRAST: NOTE: Lack of contrast is a significant limitation in the assessment of trauma related findings. Spec ifically, solid organ, vascular and bowel evaluation is significantly limited. The lungs are clear.No pneumothorax or pericardial/pleural fluid. Dialysis catheter tip terminates in the lower right atrium. No evidence of intra-abdominal visceral injury, free fluid or free air is seen within the above detai led limitations. Atrophic kidneys bilaterally with numerous renal calculi and small incompletely mirian acterize renal lesions. Cholelithiasis. Peritoneal dialysis catheter. No concerning pelvic findings. No fractures. IMPRESSION: Negative for acute traumatic findings within the above detailed limitations.
[2022-02-10 17:55] LABS: Absolute Lymphocytes (CBC) 1.7 K/uL (0.7-4.9); Hematocrit 38.8 % (36.0-45.0); Lymphocytes % 40.1 % (15.3-44.8); MCV 104.1 fL (80-100); MPV 8.7 fL (7.6-11.3); RBC Red Blood Cell Count 3.73 M/uL (3.86-4.86)
[2022-02-10 18:04] LABS: SARS-CoV-2 Antigen Rapid Res Negative (Negative)
[2022-02-10 19:02] LABS: Protime INR 1.12
[2022-02-10 19:17] LABS: ALT/SGPT < 10 U/L (12-78); AST/SGOT 8 U/L (15-37); Albumin 2.8 g/dL (3.4-5.0); Alkaline Phosphatase 56 U/L (45-117); BUN Blood Urea Nitrogen 28 mg/dL (7-18); Bicarbonate 26 mmol/L (21-32); Bilirubin Direct 0.2 mg/dL (0-0.2); Bilirubin Total 0.4 mg/dL (0.2-1.0); Glomerular Filtration Rate 5 ml/min (=/>90); Glucose Level 85 mg/dL (74-106); Lipase 35 U/L (73-393); Magnesium 2.2 mg/dL (1.8-2.4); NT PRO-BNP 7617 pg/mL (<125); Protein, Total 6.5 g/dL (6.4-8.2); Sodium Level 135 mmol/L (136-145); Troponin High Sensitivity 15.9 pg/mL (<58.9)
[2022-02-10 19:19] LABS: Potassium 2.8 mmol/L (3.5-5.1)
--- NOTE | 2022-02-10 19:28 | ER ---
Nurse's Notes [facility] Name: Maki Tabares Age: 56 yrs Sex: Female : 1965 Arrival Date: 02/10/2022 Time: 15:43 Bed 2 Private MD: Diagnosis: Fall on same level, unspecified;Strain of muscle and tendon of front wall of thorax;Strain of muscle and tendon of back wall of thorax;End stage renal disease-on HD;Hypokalemia Presentation: 02/10 16:00 Chief complaint: EMS states: home health nurse stated pt slipped and found her between mb9 her bed and wheelchair. Pt denies pain, however home health nurse says she's having pain on right side of ribs. Pt denies LOC or head trauma. Pt does dialysis every MWF but missed today's appointment. Coronavirus screen: Client denies travel out of the [place] in the last 14 days. Ebola Screen: No symptoms or risks identified at this time. Initial Sepsis Screen: Does the patient meet any 2 criteria? No. Patient's initial sepsis screen is negative. Does the patient have a suspected source of infection? No. Patient's initial sepsis screen is negative. Risk Assessment: Do you want to hurt yourself or someone else? Patient reports no desire to harm self or others. Onset of symptoms was February 10, 2022. 16:00 Method Of Arrival: EMS: [facility] mb9 16:00 Acuity: TAVIA 3 mb9 Triage Assessment: 16:00 General: Appears in no apparent distress. comfortable, Behavior is calm, cooperative, bp appropriate for age. 16:00 Pain: Denies pain. EENT: No deficits noted. Neuro: No deficits noted. Cardiovascular: bp Rhythm is sinus rhythm. Respiratory: Breath sounds with crackles bilaterally. GI: PEG tube in place. : No signs and/or symptoms were reported regarding the genitourinary system. Derm: No deficits noted. Musculoskeletal: No deficits noted. Historical: - Allergies: 16:04 crawfish; mb9 - Home Meds: 16:04 Carbidopa-Levodopa Oral [Active]; Clonazepam Oral [Active]; Dialyvite oral [Active]; mb9 Eliquis oral [Active]; lacosamide oral [Active]; levetiracetam oral [Active]; Metoprolol Tartrate Oral [Active]; pravastatin oral [Active]; neupro [Active]; topiramate oral [Active]; - PMHx: 16:04 Diabetes - NIDDM; Dialysis; peritoneal; Hyperlipidemia; Hypertension; Parkinsons; mb9 Seizure; - PSHx: 16:04 Total abdominal hysterectomy; mb9 - Immunization history:: Adult Immunizations up to date. - Social history:: Smoking status: Patient denies any tobacco usage or history of. - Family history:: not pertinent. Screenin:09 Abuse screen: Denies threats or abuse. Nutritional screening: No deficits noted. mb9 Tuberculosis screening: No symptoms or risk factors identified. Fall Risk None identified. Assessment: 16:00 General: SEE TRIAGE NOTE. bp 17:48 Reassessment: PT DECLINING PAIN MEDICATIONS, STATES NO PAIN AT THIS TIME. bp 18:34 Reassessment: No changes from previously documented assessment. Patient and/or family bp updated on plan of care and expected duration. Pain level reassessed. Vital Signs: 16:00 BP 143 / 78; Pulse 66; Resp 18; Temp 97.6; Pulse Ox 100% on R/A; Weight 64.86 kg; mb9 Height 5 ft. 1 in. (154.94 cm); Pain 0/10; 17:40 BP 119 / 75; Pulse 104; Resp 16; Pulse Ox 99% ; bp 18:34 BP 132 / 78; Pulse 45; Resp 16; Pulse Ox 100% ; bp 16:00 Body Mass Index 27.02 (64.86 kg, 154.94 cm) mb9 ED Course: 15:43 Patient arrived in ED. bp 15:43 Arm band placed on. mb9 16:00 Maria Teresa Price, RN is Primary Nurse. mb9 16:04 Triage completed. mb9 16:14 Mannie Carbajal MD is Attending Physician. [facility] 16:17 Neno Kirby, RN is Primary Nurse. bp 16:27 Patient has correct armband on for positive identification. Bed in low position. Call bp light in reach. Side rails up X2. Client placed on continuous cardiac and pulse oximetry monitoring. NIBP monitoring applied. 16:40 XRAY Chest (1 view) In Process Unspecified. EDMS 17:08 CT Traumagram (Head C Spine CAP wo con) Sent. bp 17:13 CT Traumagram (Head C Spine CAP wo con) In Process Unspecified. EDMS 17:41 Inserted saline lock: 22 gauge in right antecubital area, using aseptic technique. bp Blood collected. 19:28 Rob Mcgarry DO is Referral Physician. [facility] 20:26 No provider procedures requiring assistance completed. IV discontinued, intact, tw5 bleeding controlled, No redness/swelling at site. Pressure dressing applied. Patient maintains SpO2 saturation greater than 95% on room air. Administered Medications: 18:39 Not Given (Patient Refused): morphine 2 mg IVP once over 4 mins bp 18:39 Not Given (Patient Refused): Zofran (Ondansetron) 4 mg IVP once; over 2 minutes bp 18:54 Not Given (Patient Refused): NS 0.9% 1000 ml IV at 75 ml/hr continuous bp 20:25 Drug: Potassium Effervescent Tablet 25 mEq Route: PO; tw5 Medication: 16:10 VIS not applicable for this client. mb9 Outcome: 19:28 Discharge ordered by . [facility] 20:26 Discharged to home via wheelchair, with family. tw5 20:26 Condition: stable 20:26 Discharge instructions given to patient, family, Instructed on discharge instructions, follow up and referral plans. medication usage, Demonstrated understanding of instructions, follow-up care, medications, Prescriptions given X 1. 20:26 Patient left the ED. tw5 Signatures: Dispatcher [employer] EDMS Mannie Carbajal MD MD cha Peltier, Brian, RN RN Yanni Hunt tw5 Maria Teresa Price RN RN mb9 Corrections: (The following items were deleted from the chart) 16:09 16:00 Chief complaint: EMS states: home health nurse stated pt slipped and found her mb9 between her bed and wheelchair. Pt denies pain, however home health nurse says she's having pain on right side of ribs. Pt does dialysis every MWF but missed today's appointment mb9 16:09 16:00 Initial Sepsis Screen: Does the patient meet any 2 criteria? No. Patient's mb9 initial sepsis screen is negative. Does the patient have a suspected source of infection? No. Patient's initial sepsis screen is negative. mb9
--- NOTE | 2022-02-10 19:29 | EDPHYS ---
Physician Documentation [facility] Name: Maki Tabares Age: 56 yrs Sex: Female : 1965 Arrival Date: 02/10/2022 Time: 15:43 Bed 2 Private MD: ED Physician Mannie Carbajal HPI: 02/10 17:51 This 56 yrs old Black Female presents to ER via EMS with complaints of Chest Wall Pain kirill - R RIB. 17:51 The patient or guardian reports chest pain that is located primarily in the anterior kriill chest wall, right. Onset: just prior to arrival. The pain does not radiate. Associated signs and symptoms: The patient has no apparent associated signs or symptoms. The chest pain is described as aching, sharp. Modifying factors: The symptoms are alleviated by remaining still, the symptoms are aggravated by movement. Severity of pain: At its worst the pain was mild in the emergency department the pain is unchanged. The patient has not experienced similar symptoms in the past. Historical: - Allergies: 16:04 crawfish; mb9 - Home Meds: 16:04 Carbidopa-Levodopa Oral [Active]; Clonazepam Oral [Active]; Dialyvite oral [Active]; mb9 Eliquis oral [Active]; lacosamide oral [Active]; levetiracetam oral [Active]; Metoprolol Tartrate Oral [Active]; pravastatin oral [Active]; neupro [Active]; topiramate oral [Active]; - PMHx: 16:04 Diabetes - NIDDM; Dialysis; peritoneal; Hyperlipidemia; Hypertension; Parkinsons; mb9 Seizure; - PSHx: 16:04 Total abdominal hysterectomy; mb9 - Immunization history:: Adult Immunizations up to date. - Social history:: Smoking status: Patient denies any tobacco usage or history of. - Family history:: not pertinent. ROS: 17:51 Constitutional: Negative for fever, chills, and weight loss, Eyes: Negative for injury, kirill pain, redness, and discharge, ENT: Negative for injury, pain, and discharge, Neck: Negative for injury, pain, and swelling, Cardiovascular: Negative for chest pain, palpitations, and edema, Respiratory: Negative for shortness of breath, cough, wheezing, and pleuritic chest pain, Abdomen/GI: Negative for abdominal pain, nausea, vomiting, diarrhea, and constipation, Back: Negative for injury and pain, : Negative for injury, bleeding, discharge, and swelling, MS/Extremity: Negative for injury and deformity, Skin: Negative for injury, rash, and discoloration, Neuro: Negative for headache, weakness, numbness, tingling, and seizure, Psych: Negative for depression, anxiety, suicide ideation, homicidal ideation, and hallucinations, Allergy/Immunology: Negative for hives, rash, and allergies, Endocrine: Negative for neck swelling, polydipsia, polyuria, polyphagia, and marked weight changes, Hematologic/Lymphatic: Negative for swollen nodes, abnormal bleeding, and unusual bruising. Exam: 17:51 Constitutional: This is a well developed, well nourished patient who is awake, alert, kirill and in no acute distress. Head/Face: Normocephalic, atraumatic. Eyes: Pupils equal round and reactive to light, extra-ocular motions intact. Lids and lashes normal. Conjunctiva and sclera are non-icteric and not injected. Cornea within normal limits. Periorbital areas with no swelling, redness, or edema. ENT: Nares patent. No nasal discharge, no septal abnormalities noted. Tympanic membranes are normal and external auditory canals are clear. Oropharynx with no redness, swelling, or masses, exudates, or evidence of obstruction, uvula midline. Mucous membranes moist. Neck: Trachea midline, no thyromegaly or masses palpated, and no cervical lymphadenopathy. Supple, full range of motion without nuchal rigidity, or vertebral point tenderness. No Meningismus. Chest/axilla: Normal chest wall appearance and motion. Nontender with no deformity. No lesions are appreciated. Cardiovascular: Regular rate and rhythm with a normal S1 and S2. No gallops, murmurs, or rubs. Normal PMI, no JVD. No pulse deficits. Respiratory: Lungs have equal breath sounds bilaterally, clear to auscultation and percussion. No rales, rhonchi or wheezes noted. No increased work of breathing, no retractions or nasal flaring. Abdomen/GI: Soft, non-tender, with normal bowel sounds. No distension or tympany. No guarding or rebound. No evidence of tenderness throughout. Back: No spinal tenderness. No costovertebral tenderness. Full range of motion. Skin: Warm, dry with normal turgor. Normal color with no rashes, no lesions, and no evidence of cellulitis. MS/ Extremity: Pulses equal, no cyanosis. Neurovascular intact. Full, normal range of motion. Neuro: Awake and alert, GCS 15, oriented to person, place, time, and situation. Cranial nerves II-XII grossly intact. Motor strength 5/5 in all extremities. Sensory grossly intact. Cerebellar exam normal. Normal gait. Psych: Awake, alert, with orientation to person, place and time. Behavior, mood, and affect are within normal limits. 17:51 ECG was reviewed by the Attending Physician. Vital Signs: 16:00 BP 143 / 78; Pulse 66; Resp 18; Temp 97.6; Pulse Ox 100% on R/A; Weight 64.86 kg; mb9 Height 5 ft. 1 in. (154.94 cm); Pain 0/10; 17:40 BP 119 / 75; Pulse 104; Resp 16; Pulse Ox 99% ; bp 18:34 BP 132 / 78; Pulse 45; Resp 16; Pulse Ox 100% ; bp 16:00 Body Mass Index 27.02 (64.86 kg, 154.94 cm) mb9 MDM: 16:14 Patient medically screened. kirill 17:56 Differential diagnosis: abnormal EKG, anxiety, cholecystitis, Cholelithiasis kirill esophagitis, hiatal hernia, pneumonia. Data reviewed: vital signs, nurses notes, lab test result(s), EKG, radiologic studies, CT scan, plain films. 02/10 16:16 Order name: Basic Metabolic Panel; Complete Time: 19:27 [facility] 02/10 16:16 Order name: CBC with Diff; Complete Time: 18:56 [facility] 02/10 16:16 Order name: LFT's; Complete Time: 19:27 [facility] 02/10 16:16 Order name: Magnesium; Complete Time: 19:27 [facility] 02/10 16:16 Order name: NT PRO-BNP; Complete Time: 19:27 [facility] 02/10 16:16 Order name: PT-INR; Complete Time: 19:11 02/10 16:16 Order name: Troponin HS; Complete Time: 19:27 kirill 02/10 16:16 Order name: XRAY Chest (1 view); Complete Time: 17:22 kirill 02/10 16:16 Order name: Lipase; Complete Time: 19:27 02/10 16:16 Order name: SARS RAPID; Complete Time: 18:56 02/10 16:16 Order name: CT Traumagram (Head C Spine CAP wo con); Complete Time: 17:38 02/10 16:16 Order name: INCENTIVE SPIROMETRY 02/10 16:16 Order name: EKG; Complete Time: 16:17 02/10 16:16 Order name: Cardiac monitoring; Complete Time: 17:08 02/10 16:16 Order name: EKG - Nurse/Tech; Complete Time: 17:08 02/10 16:16 Order name: IV Saline Lock; Complete Time: 17:41 02/10 16:16 Order name: Labs collected and sent; Complete Time: 17:41 02/10 16:16 Order name: O2 Per Protocol; Complete Time: 16:35 02/10 16:16 Order name: O2 Sat Monitoring; Complete Time: 16:35 02/10 17:58 Order name: Labs - recollect needed: chem 7 and coags; Complete Time: 18:54 aa5 EC:51 Rate is 50 beats/min. Rhythm is regular. QRS [place] is Normal. [place] interval is normal. QRS kirill interval is normal. QT interval is normal. No Q waves. T waves are Normal. Clinical impression: Sinus bradycardia. Interpreted by me. Reviewed by me. Administered Medications: 18:39 Not Given (Patient Refused): morphine 2 mg IVP once over 4 mins bp 18:39 Not Given (Patient Refused): Zofran (Ondansetron) 4 mg IVP once; over 2 minutes bp 18:54 Not Given (Patient Refused): NS 0.9% 1000 ml IV at 75 ml/hr continuous bp 20:25 Drug: Potassium Effervescent Tablet 25 mEq Route: PO; tw5 Disposition Summary: 02/10/22 19:28 Discharge Ordered Location: Home kirill Problem: new kirill Symptoms: have improved kirill Condition: Stable kirill Diagnosis - Fall on same level, unspecified kirill - Strain of muscle and tendon of front wall of thorax kirill - Strain of muscle and tendon of back wall of thorax kirill - End stage renal disease - on HD kirill - Hypokalemia kirill Followup: kirill - With: Private Physician - When: 2 - 3 days - Reason: Recheck today's complaints, Continuance of care, Re-evaluation by your physician Followup: kirill - With: - When: 2 - 3 days - Reason: Recheck today's complaints, Re-evaluation by your physician Discharge Instructions: - Discharge Summary Sheet kirill - Chest Wall Pain kirill - How to Use an Incentive Spirometer kirill - Chest Wall Pain, [id number] kirill - Dialysis kirill - Hypokalemia kirill - Eating Plan for Dialysis, Veds-tx-Relf kirill - Hemodialysis kiirll - Hemodialysis, Care After kirill - Eating Plan for Dialysis kirill - Hemodialysis, [id number] kirill Forms: - Medication Reconciliation Form kirill - Thank You Letter kirill - Antibiotic Education kirill - Prescription Opioid Use [facility] Prescriptions: - Tylenol-Codeine #3 300 mg-30 mg Oral - take 2 tablet by ORAL route every 6 hours; 15 tablet; Refills: 0, Product kirill Selection Permitted Signatures: Dispatcher [employer] Mannie Richards MD MD cha Calderon, Audri, RN RN aa5 Yanni Fitzgerald tw5 Maria Teresa Price RN RN mb9 Neno Kirby RN bp
[2022-02-10] MEDS ORDERED: POTASSIUM 25 MEQ EFFERV TAB ONE (20:17)
[2022-02-10 20:57] VITALS: TEMP 97.6
[2022-02-10 20:59] VITALS: BP 132/78; O2SAT 100
--- NOTE | 2022-02-11 19:11 | EKG ---
Test Date: 2022-02-10 Test Time: 17:03:34 Sole Rougher: BP MEASUREMENT RESULTS: Intervals: Rate: 50 VA: 158 QRSD: 94 QT: 476 QTc: 433 [place]: P: 51 VA: 158 QRS: 4 T: 12 INTERPRETIVE STATEMENTS: Sinus bradycardia Anterior infarct, age undetermined Abnormal ECG Compared to ECG 09/30/2021 15:31:35 Sinus rhythm no longer present Myocardial infarct finding still present Electronically Signed On 02-11-22 19:10:21 [employer] by Ja Hudson
== END 2022-02-10 20:26 | disposition home or self-care (01) ==
LOC: ER 15:27
DX: S29.011A Strain of muscle and tendon of front wall of thorax, initial encounter (principal); S29.012A Strain of muscle and tendon of back wall of thorax, initial encounter; E87.6 Hypokalemia; E11.22 Type 2 diabetes mellitus with diabetic chronic kidney disease; I12.0 Hypertensive chronic kidney disease with stage 5 chronic kidney disease or end stage renal disease; N18.6 End stage renal disease; Z99.2 Dependence on renal dialysis; W18.30XA Fall on same level, unspecified, initial encounter; G20 Parkinson's disease; Z91.013 Allergy to seafood; Z20.822 Contact with and (suspected) exposure to COVID-19
CPT/HCPCS: 93005; 85025; 80048; 36415; 83735; 85610; 80076; 84484; 83690; 83880; 70450; 71250; 72125; 71045; 99285; 87811; J7040; J2270; J2405

== ENCOUNTER 2022-02-13 15:00 | Observation (INO) | payer OTHER ==
--- OUTSIDE RECORDS SUMMARY | 2022-02-13 15:24 | XMS REPORT | Continuity of Care Document ---
:1965 Author Organization [facility] t Address [address] [place] [address] Dr. Bermeo. [address] [place] [address] Care Team Providers Name Role Phone MORGANDANIELLEChristiano KENJI G. Primary Care Physician Unavailable Royce Jay Anavella Attending Clinician Unava ilable [id number] Attending Clinician Unavailable RIAZ BAIG Attending Clinician Unavailable JOSE WADSWORTH Attending Clinician Unavailable Jose Rey Attending Clinician Unavailable ISAAC MEEHAN Attending Clinician Unavailable CHARLES TORRES Attending Clinician Unavailable Gallito Forte MDi Attending Clinician [phone] Priti Short Attending Clinician Unavailable Mitra Gustafson V Attending Clinician Unavailable _[facility]_Wyatt_Ricky Attending Clinician Unavailable Estelle Schneider Attending Clinician [phone] Sergio Fuentes Attending Clinician [phone] ARUN SUERO Attending Clinician Unavailable BRETT SHAH Attending Clinician Unavailable Ramin De Leon MD Attending Clinician Unavailable Elmer Acevedo MD, Vangie Aldridge Attending Clinici an Ilya MCKEON, Wilmer Kothari Attending Clinician [phone] Deja MCKEON, Irlanda Mayen Attending Clinician [phone] Kellie MCKEON, Kashmir Attending Clinician Pablo MCKEON, Brett Shay Attending Clinician [phone] Raul MCKEON, Wendy David Attending Clinician [phone] Juan Carlos MCKEON, Kiarra Attending Clinician Meet ALEXIS, Chen Neves Attending Clinician Adalgisa MCKEON, Dl Attending Clinician Nancy MCKEON, Jacques Maradiaga Attending Clinician Marilu ALEXIS, Bronson Yu Attending Clinician [phone] Zoran MCKEON, Isaac Staples Attending Clinician Eyal OCHOA, Angel Attending Clinician Unavailable Jessa OCHOA, Heather Attending Clinician Unavailable Chrissie Spence RN Attending Clinician Unavailable Dianelys Mitchell RN Attending Clinician Unavailable SAJI WOOD Attending Clinician Unavailable Doctor Unassigned, Makanda Attending Clinician Unavailable Brown Lees MD Attending Clinician Daiana Osullivan MD Attending Clinician NICOL GALAN Attending Clinician Unavailable RANDOLPH NOGUEIRA Attending Clinician Unavailable MATHEW CRUM Attending Clinician Unavailable Trish Jay Anav Admitting Clinician Unavailable [id number] Admitting Clinician Unavailable RIAZ BAIG Admitting Clinician Unavailable ISAAC MEEHAN Admitting Clinician Unavailable Priti Short Admitting Clinician Unavailable _[facility]_Todd_J Admitting Clinician Unavailable RAMIN DE LEON Admitting Clinician Unavailable LOBO LIANG Admitting Clinician Unavailable AHSAN VARGAS Admitting Clinician Unavailable RANDOLPH NOGUEIRA Admitting Clinician Unavailable Payers Payer Name Policy Type Policy Number Effective Date Expiration Date Ari felix [facility] WELLMED [id number] 2021 00:00:00 [facility] [id number] WELLMED MEDICARE [id number] 2021 00:00:00 MEDICAID [facility] [id number] 2017 2017 00:00:00 00:00:00 [facility] [id number] OPTUM UNITED ONLY [id number] 2017 MCR REPL 00:00:00 [facility] [id number] [facility] (MEDICARE REPLACEMENT/ADVAN TAGE - PPO) [place] [id number] (MEDICAID) [facility] [id number] 2018 Common [employer] 00:00:00 [facility] Problems Condition Condition Condition Status Onset Resolution [...] Hypercoagu Problem Active P rivia lability lability 7 Medica l state State 00:00: 00 Hypertensi Hypertensi Problem Active P rivia ve heart ve Heart 7 Medica l and renal and Renal 00:00: disease Disease 00 with renal with Renal failure Failure 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ynep via hyperparat Hyperparat 7-27 Me dical hyroidism hyroidism 00:00: 00 Abnormal Abnormal Problem Active Privi a weight Weight 7-27 Medical loss Loss 00:00: 00 Secondary Secondary [...] ides ides 6-06 [facility] difficile difficile 00:00: [facility] kurt diarrhea diarrhea 00 Center Respirator Respirator [...] [facility]19 [facility] 00:00: Medical 00 [place] Nausea and Nausea and Disease Active U [...] initial encounter encounter Obesity Obesity Disease Active [facility] St 8-11 Assessmen [facility] 00:00: t & Plan: Medical [facility] g of this note might be different from the original. Current BMI is 34.9 which is acceptabl e for transplan t. We encourage d her to continue to increase physical activity as tolerated to aid with weight loss. Basal Basal Disease Active [facility] ganglia [facility] degenerati degenerati 00:00: t & Plan: Medical on on [facility] g of this note might be different [...] our visit today. DM DM Disease Active [facility] (diabetes (diabetes 8-11 Assessmen L ukes mellitus) mellitus) 00:00: t & Plan: M edical [facility] g of this note might be different from the original. She will require strict blood glucose control . Other Other Disease Active [facility] specified specified 12-13 [facility] personal personal 00:00: of risk risk 00 Medicin factors, factors, e not not elsewhere elsewhere classified classified Dysphasia Dysphasia Disease Active [facility] following following 12-02 Ruiz egakin unspecifie unspecifie 00:00: of d d 00 [...] (HCCode) (HCCode) e Cerebral Cerebral Disease Active [facility] atheroscle atheroscle 9 [facility] llege rosis rosis 00:00: of 00 Medicin e Localized Localized Disease Active [facility] nino edema due edema due 11-28 [facility] to fluid to fluid 00:00: of overload overload 00 Medici n e Acute Acute Disease Active [facility] encephalop encephalop 8-05 Poly kes athy athy 00:00: Medical 00 Center TIA TIA Disease Active [facility] (transient (transient 08-19 Poly kes ischemic ischemic 00:00: Medica l attack) attack) 00 Center Slurred Slurred Disease Active [facility] speech speech 5- [facility] 00:00: Medical 00 Center Pre-transp Pre-transp Disease Active 2017-[address] lant lant 0-23 Belen Toro evaluation evaluation 00:00: t & Plan: Medical for for 00 Form[facility] Center chronic chronic g of this kidney kidney note disease disease might be different from the original. She is an acceptabl e candidate for kidney transplan t pending further testing and formal review at [facility]. ESRD (end ESRD (end Disease Active 2017-[address] stage stage 0-[facility] renal renal 00:00: t & Plan: [facility] disease) [facility] g of this dialysis dialysis note might be different from the original. 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 She has been on dialysis since 2017. She does have a potential donor at this time. Malfunctio Malfunctio Disease Active 2016-03 Overview : [facility] n of n of 1-07 Added College arterioven arterioven 00:00: automatic of ous graft ous graft 00 ally from Mikey miles [facility] e for surgery [id number] Morbid Morbid Disease Active 2016-03 [facility] obesity obesity 0-16 College with body with body 00:00: of mass index mass index 00 Me dicin of of e 40.0-49.9 40.0-49.9 [facility] (H[facility]ode) Thrombosis Thrombosis Disease Active 2016-03 Overview : Univers of kidney of kidney 0-13 Added ity of dialysis dialysis 00:00: automatic Red as arterioven arterioven 00 ally from Medical ous graft, ous graft, request Skylar randall initial initial for encounter encounter surgery [id number] CKD CKD Disease Active [facility] (chronic (chronic 07-18 Health kidney kidney 00:00: disease) disease) 00 Major Major Disease Active [facility] depressive depressive 11-20 He alth disorder, disorder, 00:00: recurrent recurrent 00 episode, episode, unspecifie unspecifie d d Localized Localized Disease Active 2009-03 [facility] ris osteoarthr osteoarthr 05-01 He alth osis not osis not 00:00: specified specified 00 whether whether primary or primary or secondary, secondary, pelvic pelvic region and region and thigh thigh Localized Localized Disease Active [facility] ris osteoarthr osteoarthr 11-01 He alth osis not osis not 00:00: specified specified 00 whether whether primary or primary or secondary, secondary, lower leg lower leg Severe Severe Disease Active [facility] major major 09-14 Health depression depression 00:00: [...] insufficie ncy ncy Screening Screening Disease Active [facility] ris 4-05 Health 00:00: 00 Allergic Allergic Disease Active Clara s rhinitis, rhinitis, 06-28 Heal th cause cause 00:00: unspecifie unspecifie 00 d d Lumbago Lumbago Disease Active [facility] 06-28 Health 00:00: 00 Depression Depression Disease Active H arris 06-15 Health 00:00: 00 Anemia in Anemia in Problem Active Zeynep via chronic Chronic Medical kidney Kidney disease Disease 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 Degenerati on with on with calcificat Calcificat ion ion Hemodialys Hemodialys Problem Active P rivia is-associa is-associa Me dical sally slaly hypotensio Hypotensio n n [id number] Dependence Problem Active Co mmon on renal Spirit dialysis [facility] [id number] Body mass Problem Active Com mon index Spirit (BMI) [facility] 35.0-35.9, [facility] [id number] History of Problem Active Co mmon CVA with Spirit residual - [facility] deficit [facility] [id number] Anemia of Problem Active Com mon chronic Spirit disease - [facility] [id number] Left-sided Problem Active Co mmon weakness Spirit [facility] [id number] End stage Problem Active Comm on renal Spirit disease [facility] [id number] Mixed Problem Active Common hyperlipid Spirit emia [facility] [id number] Depression Problem Active Co mmon with Spirit anxiety - [facility] Allergies, Adverse Reactions, Alerts Allergy Allergy Status Severity Reaction(s) Onset Inactive Treating Comm ents Source Name Type Date Date Clinician CRAYFISH Allergy Active High Anaphylaxis SL EH 08-06 00:00: 00 SHELLFIS Allergy Active Med Itching SLEH H 08-06 CONTAINI 00:00: NG 00 PRODUCTS Crayfish Propensi Active Anaphylaxis [facility] ty to 08-06 Lu adverse 00:00: Medical reaction 00 Center s Shellfis Propensi Active Itching [facility] ty to 08-06 [facility] Containi adverse 00:00: Medical ng reaction 00 Center Products s Shellfis Propensi [facility] e d adverse 00:00: per of Products reaction 00 patient. Medi leticia s to e drug Shellfis Propensi Active Hives 2018-03 Only Univer s h ty to 03-29 crawfish ity of Derived adverse 00:00: per [place] reaction 00 patient. Medica l s Branch Shellfis Propensi Active Hives 2018-03 Only [facility]-Derive ty to 03-29 crawfish Health d adverse 00:00: per Products reaction 00 patient. s 0 Drug Active Unknown Common allergy Spirit - [facility] NO KNOWN Allergy Active [facility] ALLERGIE S Family History Family Member Diagnosis Comments Start Date Stop Date Source Natural father Diabetes [facility] Natural father Hypertension [facility] Natural father Stroke [facility] Natural mother Arthritis [facility] Natural mother Diabetes [facility] Natural mother Hypertension [facility] Natural sister Cancer [facility] Natural sister Hypertension [facility] Natural sister Clotting disorder [facility] Social History Social Habit Start Date Stop Date Quantity Comments Source History SDOH [facility] Frequency [facility] Alcohol Std Drinks Medica Center History [facility] Alcohol Binge Medical Krista ter History of Tobacco Common Spirit - Use [facility] Exposure to 2022-01-21 2022-01-[address] [facility] SARS-CoV-2 (event) 00:00:00 10:24:00 Alcohol intake 2021-09-12 2021-09-[address] [facility] es 00:00:00 00:00:00 non-drinker of Medical Ce nter alcohol (finding) History [facility] 2021-09-03 2021-09-[address] [facility] Housing Unable to 00:00:00 00:00:00 Medical Center Pay History [facility] 2021-08-11 2021-08-[address] [facility] Housing Places 00:00:00 00:00:00 Medical Ce nter Lived History [facility] 2021-08-11 2021-08-[address] [facility] Housing Homeless 00:00:00 00:00:00 Medical Center Last Year History [facility] 2019-11-04 2019-11-[address] [facility] Alcohol Comment 00:00:00 00:00:00 Medical C enter Tobacco use and 2017-12-14 2017-12-14 Never used [facility] exposure 00:00:00 00:00:00 Medical Center Sex [birth year] At [birth year] [facility] 00:00:00 00:00:00 Medical Center Smoking Status Start Date Stop Date Source Tobacco smoking consumption unknown [facility] Never smoked tobacco [facility] Medications Ordered Filled Start Stop Current Ordering Indication Dosage Frequency Signature Comments Components Source Medication Medication Date Date Medication? Clinician (SIG) Name Name cholecalcif 2021-03 Yes 5000U QD Take 5,000 UT qian (D3-5) 1-08 Units by [facility] 5,000 Units 10:40: mouth 1 tablet 44 (one) time each day. midodrine 2021-03 Yes Take 2 UT (Proamatine -08 tablets [facility] ) 5 MG 10:40: twice tablet 44 daily lacosamide 2021-03 Yes [id number] TAKE 1 U T (Vimpat) -08 TABLET BY [facility] 200 mg 00:00: MOUTH ON tablet 00 SUNDAY, tablet SUNDAY AND FRIDAYStre ngth: 200 mg levETIRAcet 2021-03 Yes [id number] TAKE ONE UT am (Keppra) 1-08 TABLET BY [facility] 500 MG 00:00: MOUTH tablet 00 THREE TIMES A WEEK (SUNDAY, SUNDAY, AND SUNDAY)Str ength: 500 mg carbidopa-l 2021-03- Yes [id number] 2{tbl} Q.5D Take 2 UT evodopa - 05-08 tablets by [facility] (Sinemet) 00:00: 04:59 mouth in 25-100 MG 00 :00 the tablet morning and 2 tablets in the evening. rotigotine 2021-03- Yes [id number] 1{patch QD Place 1 UT (Neupro) 6 04-02 05-08 } patch on Heal th MG/24HR 00:00: 04:59 the skin 1 00 :00 (one) time each day. topiramate 2021-03- Yes [id number] 50mg Q.5D Take 1 UT 50 MG 04-02-08 tablet (50 Health tablet 00:00: 04:59 mg total) 00 :00 by mouth in the morning and 1 tablet (50 mg total) in the evening. topiramate 2021-03- No UT 50 MG 1-06 08 Health tablet 00:00: 00:00 00 :00 levETIRAcet 2021-03- No TAKE ONE U T am (Keppra) 0-30 01-31 TABLET BY latosha 500 MG 00:00: 00:00 MOUTH tablet 00 :00 THREE TIMES A WEEK (SUNDAY, SUNDAY, AND SUNDAY) lacosamide 2021-03- No TAKE 1 UT (Vimpat) 0-05 01-31 TABLET BY Healt 200 mg 00:00: 00:00 [...] 3 (three) times a week after dialysis I. Max Daily Amount: 200 mg levETIRAcet 0 Yes 500mg Take [address] am (KEPPRA) 7-04 (500 mg [facility] 500 mg/5 mL 00:00: total) by Mikey mendoza (5 mL) Solchaz 00 mouth 3 Cente r oral (three) solution times a week after dialysis I. lacosamide Yes 200mg Take [address] 200 mg Tab 7-04 tablet [facility]ukes 00:00: (200 mg Medical 00 total) by Center mouth 3 (three) times a week after dialysis I. Max Daily Amount: 200 mg levETIRAcet Yes 500mg Take [address] [facility] am (KEPPRA) 09-26 (500 mg [facility] 500 mg/5 mL 00:00: total) by M kelly (5 mL) Soln 00 mouth 3 Cente r oral (three) solution times a week after dialysis I. topiramate 2022- No 50mg Take [address] (TOPAMAX) 09-26- tablet (50 Virgie es 50 MG 00:00: 23:59 mg total) Medica l tablet 00 :00 by mouth 3 Center (three) times a week after dialysis I. topiramate 2022- No 50mg Take [address] (TOPAMAX) 09-26- tablet (50 Virgie es 50 MG 00:00: 23:59 mg total) Medica l tablet 00 :00 by mouth 3 Center (three) times a week after dialysis I. pyridoxine, 2022- No 25mg QD Take [address] vitamin B6, 09-25 tablet (25 L ukes (B-6) 25 MG 00:00: 23:59 mg total) Medical tablet 00 :00 by mouth Center daily. pyridoxine, 2022- No 25mg QD Take [address] vitamin B6, 09-25 tablet (25 L ukes (B-6) 25 MG 00:00: 23:59 mg total) Medical tablet 00 :00 by mouth Center daily. levETIRAcet 2021- No 1000mg QD Take [address] am (KEPPRA) 09-25 10-01 mLs (1,000 L ukes 500 mg/5 mL 00:00: 23:59 mg total) Medical (5 mL) Soln 00 :00 by mouth Cent er oral daily for solution 90 days. levETIRAcet 2021- No 1000mg QD Take [address] am (KEPPRA) 09-25 10-01 mLs (1,000 L ukes 500 mg/5 mL 00:00: 23:59 mg total) Medical (5 mL) Soln 00 :00 by mouth Cent er oral daily for solution 90 days. pravastatin 2022-0 Yes 20mg QD Take [address] (PRAVACHOL) 7-02 by mouth Luke s 20 MG 16:12: daily. Medical tablet 11 [place] carbidopa-l Yes 2{tbl} Q.[id number] Take [address] evodopa 7- [id number] tablets by [facility] (SINEMET) 16:12: 3D mouth 3 Medic al 25-100 mg 11 (three) Center per tablet times daily. rotigotine 0 Yes 1{patch QD Place [address] (NEUPRO) 6 7-02 } patch onto Virgie es mg/24 hour 16:12: the skin Med ical 11 daily. [place] pravastatin Yes 20mg QD Take [address] (PRAVACHOL) 02 by mouth Luke s 20 MG 16:12: daily. Medical tablet 11 [place] carbidopa-l Yes 2{tbl} Q.[id number] Take [address] evodopa - [id number] tablets by [facility] (SINEMET) 16:12: 3D mouth 3 Medic al 25-100 mg 11 (three) Center per tablet times daily. rotigotine Yes 1{patch QD Place [address] (NEUPRO) 6 7- } patch onto Virgie es mg/24 hour 16:12: the skin Med ical 11 daily. [place] ascorbic 2021- No 500mg QD Take [address] acid, 09-24 07-02 mg by [facility] vitamin C, 11:43: 00:00 mouth Medic al (ASCORBIC 48 :00 daily. Center ACID WITH SKYLAR HIPS) 500 MG tablet melatonin/p 2021- No 10mg QD Take [address] yridoxine 09-24-02 by mouth [facility] (MELATONIN, 11:43: 00:00 every Medi kurt WITH B6, 48 :00 evening. Center ORAL) ascorbic 2021- No 500mg QD Take [address] acid, - 07-02 mg by [facility]ukes vitamin C, 11:43: 00:00 mouth Medic al (ASCORBIC 48 :00 daily. Center ACID WITH SKYLAR HIPS) 500 MG tablet melatonin/p 2021-2021- No 10mg QD Take [address] yridoxine 7-02 07-02 by mouth [facility] (MELATONIN, 11:43: 00:00 every Medi kurt WITH B6, 48 :00 evening. Center ORAL) apixaban 2-0 Yes 5mg Q.5D Take [address] (ELIQUIS) 5 -02 tablet (5 Virgie es mg Tab 00:00: mg total) Medica l tablet 00 by mouth 2 Center (two) times daily. lacosamide 2021-0 Yes 200mg Q.5D Take [address] 200 mg Tab - tablet [facility]ukes 00:00: (200 mg Medical 00 total) by Center mouth 2 (two) times daily. Max Daily Amount: 400 mg apixaban 2021-0 Yes 5mg Q.5D Take [address] (ELIQUIS) 5 - tablet (5 Virgie es mg Tab 00:00: mg total) Medica l tablet 00 by mouth 2 Center (two) times daily. lacosamide 2021-0 Yes 200mg Q.5D Take [address] 200 mg Tab - tablet [facility]ukes 00:00: (200 mg Medical 00 total) by Center mouth 2 (two) times daily. Max Daily Amount: 400 mg hydrALAZINE 2021-0 2022- No 100mg Take [address] (APRESOLINE 09-24 tablet [facility]ukes ) 100 MG 00:00: 23:59 (100 mg Medic al tablet 00 :00 total) by Center mouth every 8 (eight) hours. metoprolol 2021-0 2022- No 100mg Q.5D Take [address] tartrate 09-24 tablet [facility]ukes (LOPRESSOR) 00:00: 23:59 (100 mg Me dical 100 MG 00 :00 total) by Center tablet mouth 2 (two) times daily. NIFEdipine 2021-0 2022- No 60mg Q.5D Take [address] (PROCARDIA- 09-24- tablet (60 L ukes XL) 60 MG 00:00: 23:59 mg total) Me dical (OSM) 24 hr 00 :00 by mouth 2 Ce nter tablet (two) times daily. topiramate 2021-0 2022- No 50mg Take [address] (TOPAMAX) 09-24- tablet (50 Virgie es 50 MG 00:00: 23:59 mg total) Medica l tablet 00 :00 by mouth Center every 12 (twelve) hours. hydrALAZINE 2022- No 100mg Take [address] (APRESOLINE 09-24 tablet [facility] ) 100 MG 00:00: 23:59 (100 mg Medic al tablet 00 :00 total) by Center mouth every 8 (eight) hours. metoprolol 2021-2022- No 100mg Q.5D Take [address] tartrate 09-24 tablet [facility] (LOPRESSOR) 00:00: 23:59 (100 mg Me dical 100 MG 00 :00 total) by Center tablet mouth 2 (two) times daily. NIFEdipine 2021-2022- No 60mg Q.5D Take [address] [...] mouth Center every 12 (twelve) hours. clonazePAM 2021-2021- No .5mg QD Take [address] (KlonoPIN) 09-24 tablet [facility] 0.5 MG 00:00: 23:59 (0.5 mg Medical tablet 00 :00 total) by Center mouth nightly for 30 days. Max Daily Amount: 0.5 mg valproic 2021- No 1000mg Take [address] acid, as 09-24 mLs (1,000 Luke s sodium 00:00: 23:59 mg total) Medic al salt, 00 :00 by mouth Center (DEPAKENE) every 8 250 mg/5 mL (eight) (5 mL) hours for solution 30 days. clonazePAM 2021-2021- No .5mg QD Take [address] (KlonoPIN) 09-24 tablet [facility] 0.5 MG 00:00: 23:59 (0.5 mg Medical tablet 00 :00 total) by Center mouth nightly for 30 days. Max Daily Amount: 0.5 mg valproic 2021- No 1000mg Take [address] acid, as 09-24 08-01 mLs (1,000 Luke s sodium 00:00: 23:59 mg total) Medic al salt, 00 :00 by mouth Center ([facility]) every 8 250 mg/5 mL (eight) (5 mL) hours for solution 30 days. epoetin Yes anemia [id number] Inject [address] pb 5-28 mL (10,000 [facility] (EPOGEN,PRO 00:00: Units Medic al CRIT) 00 total) Center 10,000 subcutaneo unit/mL usly 3 injection (three) times a week at bedtime E/BACILIO/SA T. epoetin Yes anemia [id number] Inject [address] pb 5-28 mL (10,000 [facility] (EPOGEN,PRO 00:00: Units Medic al CRIT) 00 total) Center 10,000 subcutaneo unit/mL usly 3 injection (three) times a week at bedtime SUN/SUN/SA T. levETIRAcet Yes 1000mg Q24H Inject [facility] am (KEPPRA) 5-28 1,000 mg Luke s IVPB 00:00: intravenou Medical 00 sly daily. Center epoetin Yes anemia [id number] Inject [address] pb 5-28 mL (10,000 [facility] (EPOGEN,PRO 00:00: Units Medic al CRIT) 00 total) Center 10,000 subcutaneo unit/mL usly 3 injection (three) times a week at bedtime SUN/SUN/SA T. levETIRAcet Yes 1000mg Q24H Inject [facility] am (KEPPRA) 5-28 1,000 mg Luke s IVPB 00:00: intravenou Medical 00 sly daily. Center epoetin Yes anemia [id number] Inject [address] pb 5-28 mL (10,000 [facility] (EPOGEN,PRO 00:00: Units Medic al CRIT) 00 total) Center 10,000 subcutaneo unit/mL usly 3 injection (three) times a week at bedtime E/BACILIO/SA T. ergocalcife 2022-0 2023- No [id number] Q7D Take [address] rol 5-28 05-28 capsule [facility] (ERGOCALCIF 00:00: 23:59 (50,000 Me dical QIAN) 1,250 00 :00 Units Center mcg (50,000 total) by unit) mouth once capsule a week. ergocalcife 2021-0 2023- No [id number] Q7D Take [address] rol 5-28 -28 capsule [facility] (ERGOCALCIF 00:00: 23:59 (50,000 Me dical QIAN) 1,250 00 :00 Units Center mcg (50,000 total) by unit) mouth once capsule a week. ergocalcife 2021-0 3- No [id number] Q7D Take [address] rol -28 -28 capsule [facility]ukes (ERGOCALCIF 00:00: 23:59 (50,000 Me dical QIAN) 1,250 00 :00 Units Center mcg (50,000 total) by unit) mouth once capsule a week. ergocalcife 2021-0 3- No [id number] Q7D Take [address] rol -20 08-28 capsule [facility] (ERGOCALCIF 00:00: 23:59 (50,000 Me dical QIAN) 1,250 00 :00 Units Center mcg (50,000 total) by unit) mouth once capsule a week. levETIRAcet 2021-0 2021- No 1000mg Q24H Inject [facility] am (KEPPRA) 08-20-02 1,000 mg Virgie es IVPB 00:00: 00:00 intravenou Medica l 00 :00 sly daily. [place] levETIRAcet 2021-0 2021- No 1000mg Q24H Inject [facility] am (KEPPRA) 08-20-02 1,000 mg Virgie es IVPB 00:00: 00:00 intravenou Medica l 00 :00 sly daily. [place] pravastatin Yes 20mg QD Take [address] (PRAVACHOL) 5-27 by mouth Luke s 20 MG 13:34: daily. Medical tablet 05 [place] ascorbic Yes 500mg QD Take [address] acid, 5-27 mg by [facility]ukes vitamin C, 13:34: mouth Medica l (ASCORBIC 05 daily. Center ACID WITH SKYLAR HIPS) 500 MG tablet carbidopa-l 2021-0 Yes 2{tbl} Q.[id number] Take [address] evodopa 5-27 [id number] tablets by [facility] (SINEMET) 13:34: 3D mouth 3 Medic al 25-100 mg 05 (three) Center per tablet times daily. rotigotine 2021-0 Yes 1{patch QD Place [address] (NEUPRO) 6 5-27 } patch onto Virgie es mg/24 hour 13:34: the skin Med ical 05 daily. [place] pravastatin 0 Yes 20mg QD Take [address] (PRAVACHOL) 5-27 by mouth Luke s 20 MG 13:34: daily. Medical tablet 05 [place] ascorbic 0 Yes 500mg QD Take [address] [facility] acid, 5-27 mg by [facility] vitamin C, 13:34: mouth Medica l (ASCORBIC 05 daily. [place] ACID WITH SKYLAR HIPS) 500 MG tablet carbidopa-l Yes 2{tbl} Q.[id number] Take [address] [facility] evodopa 5-27 [id number] tablets by [facility] (SINEMET) 13:34: 3D mouth 3 Medic al 25-100 mg 05 (three) Center per tablet times daily. rotigotine 0 Yes 1{patch QD Place [address] [facility] (NEUPRO) 6 5-27 } patch onto Virgie es mg/24 hour 13:34: the skin Med ical 05 daily. [place] melatonin/p 2021-0 Yes 10mg QD Take 10 [...] Medi kurt 5,000 unit 22 :00 daily. [place] Tab midodrine 2021-0 2022- No 5mg Q.5D Take 5 mg [facility] [...] unable to swallow the pills) . cholecalcif 2021-2021- No 5000U QD Take 5,[address] [facility] [...] unable to swallow the pills) . cholecalcif 2021-2021- No 5000U QD Take 5,[address] [facility] qian, 5-27 05-27 Units by [facility] vitamin D3, 10:39: 00:00 mouth Medi kurt 5,000 unit 22 :00 daily. Center Tab midodrine 2021-0 2021- No 5mg Q.5D Take [address] [facility] [address] [facility] (PROAMATINE 5-27 05-27 by mouth 2 [facility] ) 5 MG 10:39: 00:00 (two) Medical tablet 22 :00 times Center daily. potassium 2021-2021- No 20meq Q.5D Take [address] [facility] [...] tablet 22 :00 times Center daily. potassium 2021-2021- No 20meq Q.5D Take [address] [facility] [...] unable to swallow the pills) . acyclovir Yes 790mg Inject [address] (ZOVIRAX) 5-27 mg [facility] IVPB in 150 00:00: intravenou Medical mL 00 sly every Center 8 (eight) hours. cefTRIAXone 0 Yes 2g Q24H Inject 2 g [facility] [...] hours. Max Daily Amount: 200 mg metroNIDAZO 0 Yes 500mg Take [address] [facility] LE [...] injection (three) times daily before meals. ferrous 2021-2022- No 300mg QD 5 mLs (300 [facility] [...] Center as needed (PERITONEA L DIALYSIS). insulin 2021-2022- No 0U Inject 0-[address] [facility] lispro [...] No 0U Inject 0-[address] [facility] lispro 08-19-27 Units [facility] (HumaLOG) 00:00: 23:59 subcutaneo M [...] 650mg Take [address] en 08-19-02 tablets [facility] (TYLENOL) 00:00: 00:00 (650 mg Medi kurt 325 MG 00 :00 total) by Center tablet mouth every 4 (four) hours as needed for up to 360 days. acyclovir 2021- No 790mg Inject [address] [facility] (ZOVIRAX) 08-19 07-02 mg [facility] IVPB in 150 00:00: 00:00 intravenou Medical mL 00 :00 sly every Center 8 (eight) hours. aluminum & 2021- No 30mL Take [address] [facility] magnesium 08-19- mLs by [facility] hydroxide-s 00:00: 00:00 mouth Medi kurt imethicone 00 :00 every 6 Center (MAALOX (six) PLUS) hours as 400-400-40 needed for mg/5 mL up to 10 suspension days. bisacodyL 2021- No 10mg Place [address] [facility] (DULCOLAX) 08-19- suppositor Poly kes 10 mg 00:00: 00:00 [...] No 5000U Inject [address] [facility] injection 08-19- mL (5,000 [facility] 5,000 00:00: 00:00 Units Medical units/mL 00 :00 total) Center subcutaneo usly every 12 (twelve) hours. hydrALAZINE 2021- No 10mg Inject 0.[address] [facility] (APRESOLINE 08-19- mLs (10 mg L ukes ) 20 mg/mL 00:00: 00:00 total) Medi kurt injection 00 :00 intravenou Cent er sly every 4 (four) hours as needed. lacosamide 2021- No 100mg Inject [address] [facility] (VIMPAT) 08-19- mg [facility] IVPB 00:00: 00:00 intravenou Medica [...] 40mg QD Inject [address] [facility] e 08-19- mg [facility] (PROTONIX) 00:00: 00:00 intravenou Medical [...] 00 :00 both eyes Center Oint nightly. acetaminoph 2021- No 650mg Take [address] [facility] en 08-19 tablets [facility] (TYLENOL) 00:00: 00:00 (650 mg Medi kurt 325 MG 00 :00 total) by Center tablet mouth every 4 (four) hours as needed for up to 360 days. acyclovir 2021- No 790mg Inject [address] [facility] [address] (ZOVIRAX) 08-19 mg [facility] IVPB in 150 00:00: 00:00 [...] No 5000U Inject [address] [facility] injection 08-19- mL (5,000 [facility] 5,000 00:00: 00:00 Units Medical units/mL 00 :00 total) Center subcutaneo usly every 12 (twelve) hours. hydrALAZINE 2021- No 10mg Inject 0.[address] [facility] (APRESOLINE 08-19-02 mLs (10 mg L ukes ) 20 mg/mL 00:00: 00:00 total) Medi kurt injection 00 :00 intravenou Cent er sly every 4 (four) hours as needed. lacosamide 2021- No 100mg Inject [address] [facility] (VIMPAT) 08-19- mg [facility] IVPB 00:00: 00:00 intravenou Medica [...] No 4mg Take [address] [facility] (ZOFRAN-ODT 08-19- tablet (4 Poly kes ) 4 MG 00:00: 00:00 mg total) Medic al disintegrat 00 :00 by mouth Cent er ing tablet every 8 (eight) hours as needed for up to 7 days. ondansetron 2021- No 4mg Inject [address] (ZOFRAN) 4 08-19- mLs (4 mg Virgie es mg/2 mL 00:00: 00:00 total) Medical injection 00 :00 intravenou Cent er sly every 4 (four) hours as needed. pantoprazol 2021- No 40mg QD Inject [address] [facility] e 08-19- mg [facility] (PROTONIX) 00:00: 00:00 intravenou Medical [...] :00 both eyes Center Oint nightly. chlorhexidi 2021- No 15mL Q.5D Use as [facility] ne 08-19 06-10 directed [facility] (PERIDEX) 00:00: 23:59 15 mLs in Me dical 0.12 % 00 :00 the mouth Center solution or throat 2 (two) times daily for 14 days. chlorhexidi 2021- No 15mL Q.5D Use as [facility] ne 08-19 06-10 directed [facility] (PERIDEX) 00:00: 23:59 15 mLs in Me dical 0.12 % 00 :00 the mouth Center solution or throat 2 (two) times daily for 14 days. aluminum & 2021- No 30mL Take [address] [facility] magnesium 08-19 06-06 mLs by [facility] hydroxide-s 00:00: 23:59 mouth Medi kurt imethicone 00 :00 every 6 Center (MAALOX (six) PLUS) hours as 400-400-40 needed for mg/5 mL up to 10 suspension days. bisacodyL 2021-0 2- No 10mg Place [address] [facility] (DULCOLAX) 08-19- suppositor Poly kes 10 mg 00:00: 23:59 y (10 mg Medical suppository 00 :00 total) Center rectally daily as needed for up to 10 days. docusate 2021-0 2- No 100mg Take 1 [facility] sodium 08-19- capsule [facility] (COLACE) 00:00: 23:59 (100 mg Medic al 100 MG 00 :00 total) by Center capsule mouth 2 (two) times daily as needed for Constipati on for up to 10 days. simethicone 2021-0 2021- No 80mg Take [address] [facility] (MYLICON) 08-19- tablet (80 Virgie es 80 MG 00:00: 23:59 mg total) Medica l chewable 00 :00 by mouth Center tablet every 6 (six) hours as needed for Flatulence for up to 10 days. aluminum & 2021-2021- No 30mL Take [address] [facility] magnesium 08-19- mLs by [facility] hydroxide-s 00:00: 23:59 mouth Medi kurt imethicone 00 :00 every 6 Center (MAALOX (six) PLUS) hours as 400-400-40 needed for mg/5 mL up to 10 suspension days. bisacodyL 2021-0 2021- No 10mg Place [address] [facility] (DULCOLAX) 08-19- suppositor Poly kes 10 mg 00:00: 23:59 y (10 mg Medical suppository 00 :00 total) Center rectally daily as needed for up to 10 days. docusate 2021-0 2021- No 100mg Take 1 [facility] sodium 08-19- capsule [facility] (COLACE) 00:00: 23:59 (100 mg Medic al 100 MG 00 :00 total) by Center capsule mouth 2 (two) times daily as needed for Constipati on for up to 10 days. simethicone 2021-0 2- No 80mg Take [address] [facility] (MYLICON) 08-19-06 tablet (80 Virgie es 80 MG 00:00: 23:59 mg total) Medica l chewable 00 :00 by mouth Center tablet every 6 (six) hours as needed for Flatulence for up to 10 days. mupirocin 2021- No 1g Q.5D 1 g by [facility] (BACTROBAN) 08-19- Nasal [facility] 2 % 00:00: 23:59 route 2 Medical ointment 00 :00 (two) Center times daily for 7 days. ondansetron 2021- No 4mg Take [address] [facility] (ZOFRAN-ODT 08-19-03 tablet (4 Poly kes ) 4 MG 00:00: 23:59 mg total) Medic al disintegrat 00 :00 by mouth Cent er ing tablet every 8 (eight) hours as needed for up to 7 days. mupirocin 2021- No 1g Q.5D 1 g by [facility] (BACTROBAN) 08-19- Nasal [facility] 2 % 00:00: 23:59 route 2 Medical ointment 00 :00 (two) Center times daily for 7 days. ondansetron 2021- No 4mg Take [address] [facility] (ZOFRAN-ODT 08-19-03 tablet (4 Poly kes ) 4 MG 00:00: 23:59 mg total) Medic al disintegrat 00 :00 by mouth Cent er ing tablet every 8 (eight) hours as needed for up to 7 days. vancomycin 2021- No 1500mg Inject [facility] (VANCOCIN) 08-19 1,500 mg Luke s 1500 mg in 00:00: 23:59 intravenou Medical NS 250 mL 00 :00 sly once Center (V2B) IVPB for 1 dose. vancomycin 2021- No 1500mg Inject [facility] (VANCOCIN) 08-19- 1,500 mg Luke s 1500 mg in 00:00: 23:59 intravenou Medical NS 250 mL 00 :00 sly once Center (V2B) IVPB for 1 dose. atenolol 2021- No 100mg QD Take [address] [facility] [...] :00 daily with Center tablet breakfast. ferrous 2021-0 2021- No 324mg Take [address] [facility] gluconate 5-19 05-19 mg by [facility] (FERGON) 08:56: 00:00 mouth Medical 324 MG 17 :00 daily with Center tablet breakfast. ferrous 2021-0 2021- No 324mg Take [address] [facility] gluconate 5-19 05-19 mg by [facility] (FERGON) 08:56: 00:00 mouth Medical 324 MG 17 :00 daily with Center tablet breakfast. ferrous 2021-0 2021- No 324mg Take [address] [facility] gluconate 5-19 05-19 mg by [facility] (FERGON) 08:56: 00:00 mouth Medical 324 MG 17 :00 daily with Center tablet breakfast. cholecalcif 2021-0 Yes 5000U QD Take 5,000 [facility] qian (D3-5) 5-10 Units by Heal th 5,000 Units 10:53: mouth 1 tablet 50 (one) time each day. midodrine 0 Yes Take 2 [facility] (Proamatine 5-10 tablets Healt h ) 5 MG 10:53: twice tablet 50 daily rotigotine 2021-0 2- No [id number] 1{patch QD Place 1 [facility] (Neupro) 6 5-10 08 } patch on Heal th MG/24HR 00:00: 00:00 the skin 1 00 :00 (one) time each day. carbidopa-l 2021-0 2021- No [id number] 2{tbl} Q.[id number] Take 2 [facility] evodopa 5-10 - [id number] tablets by Health (Sinemet) 00:00: 00:00 3D mouth 3 25-100 MG 00 :00 (three) tablet times a day. ondansetron 2021-2- No [id number] 8mg Q.41732615 Take 1 [facility] (Zofran) 8 5-10 - [id number] tablet (8 Health MG tablet 00:00: 05:59 3D mg total) 00 :00 by mouth 3 (three) times a day. rotigotine 2021-2- No [id number] 1{patch QD Place 1 [facility] (Neupro) 6 -01-30 } patch on Heal th MG/24HR 00:00: 05:59 the skin 1 00 :00 (one) time each day. carbidopa-l 2021-0 2- No [id number] 2{tbl} Q.[id number] Take 2 [facility] evodopa 5-10 - [id number] tablets by Health (Sinemet) 00:00: 05:59 3D mouth 3 25-100 MG 00 :00 (three) tablet times a day. Eliquis 5 2021-0 Yes 5mg Q.5D Take 5 mg [facility] MG tablet 4-27 by mouth 2 Heal 00:00: (two) 00 times a day. Eliquis 5 2021-0 Yes 5mg Q.5D Take 5 mg [facility] MG tablet 4-27 by mouth 2 Heal 00:00: (two) 00 times a day. sevelamer 2021-0 Yes MIX 1 [facility] carbonate 2-24 PACKET AND Heal th (Renvela) 00:00: DRINK 2.4 g 00 THREE packet TIMES DAILY sevelamer 2-0 Yes MIX 1 [facility] carbonate 2-24 PACKET AND Heal th (Renvela) 00:00: DRINK 2.4 g 00 THREE packet TIMES DAILY Ascorbic 2-0 Yes 1{tbl} QD Take 1 [facility] Acid [...] tablet each day. ondansetron 2021- No 8mg Q.[id number] Take 8 mg [facility] (Zofran) 8 2- 05-10 [id number] by mouth 3 Health MG tablet 00:00: 00:00 3D (three) 00 :00 times a day. carbidopa-l 2021- No carbidopa [facility] evodopa 6- 05-10 25 Health (Sinemet) 00:00: 00:00 mg-levodop 25-100 MG 00 :00 a 100 mg tablet tablet TAKE 2 TABLETS BY MOUTH THREE TIMES DAILY rotigotine 2021- No Neupro 6 [facility] (Neupro) 6 6 05-10 mg/24 hour He alth MG/24HR 00:00: [...] daily for 30 days. hydrocodone 2019-03 Yes [id number] tk 1 tab [facility] -acetaminop 0-29 [id number] po q 8 h [facility] hen [...] FOR Medicin 30 DAYS e hydrocodone Yes [id number] tk 1 to 2 [facility] -acetaminop 9-10 [id number] tabs po q [facility] ([employer]) 00:00: 6 h prn of 7.5-325 MG 00 severe Medicin per tablet pain e hydrocodone 2020- No [id number] tk 1 to 2 [facility] -acetaminop 9-10 10-29 [id number] tabs po q College hen ([employer]) 00:00: 00:00 6 h prn of 7.5-325 MG 00 :00 severe Medicin per tablet pain e hydrocodone Yes [id number] tk 1 to 2 [facility] -acetaminop 8-20 [id number] tabs po q [facility] ([employer]) 00:00: 6 h prn of 7.5-325 MG 00 severe Medicin per tablet pain e hydrocodone 2020- No [id number] tk 1 to 2 [facility] -acetaminop 8-20 09-10 [id number] tabs po q [facility] hen ([employer]) 00:00: 00:00 6 h prn of 7.5-325 MG 00 :00 severe Medicin per tablet pain e Sevelamer Yes TAKE 1 [place] Carbonate 8-07 TABLET BY Colle ge 800 MG TABS 00:00: MOUTH of 00 THREE Medicin TIMES e DAILY WITH MEALS. (TAKE BOTH POWDER AND TABLETS) Sevelamer Yes TAKE 1 [facility] Carbonate 8-07 TABLET BY Colle ge 800 MG TABS 00:00: MOUTH of 00 THREE Medicin TIMES e DAILY WITH MEALS. (TAKE BOTH POWDER AND TABLETS) Sevelamer 2019- Yes TAKE 1 [facility] Carbonate 8-07 TABLET BY [facility] 800 MG TABS 00:00: MOUTH of 00 [...] WITH MEAL THREE TIMES A DAY Sevelamer 2019- Yes MIX ONE [facility] Carbonate 8-03 PACKET College 0.8 g PACK 00:00: WITH 2OZ. of 00 OF WATER Medicin THEN DRINK e WITH MEAL THREE TIMES A DAY ELIQUIS 5 Yes TAKE 1 [place] MG TABS 7-30 TABLET BY [place] 00:00: MOUTH of 00 TWICE Medicin DAILY FOR e 90 DAYS metformin Yes TAKE 1 [facility] (GLUCOPHAGE 7-30 TABLET BY Col lege ) 500 MG 00:00: MOUTH ONCE of tablet 00 DAILY WITH Medicin A MEAL FOR e 90 DAYS ELIQUIS 5 Yes TAKE 1 [place] MG TABS 7-30 TABLET BY [place] 00:00: MOUTH of 00 TWICE Medicin DAILY FOR e 90 DAYS metformin Yes TAKE 1 [facility] (GLUCOPHAGE 7-30 TABLET BY Col lege ) 500 MG 00:00: MOUTH ONCE of tablet 00 DAILY WITH Medicin A MEAL FOR e 90 DAYS ELIQUIS 5 Yes TAKE 1 [place] MG TABS 7-30 TABLET BY [place] 00:00: MOUTH of 00 TWICE Medicin DAILY FOR e 90 DAYS metformin Yes TAKE 1 [place] (GLUCOPHAGE 7-30 TABLET BY Col lege ) 500 MG 00:00: MOUTH ONCE of tablet 00 DAILY WITH Medicin A MEAL FOR e 90 DAYS ELIQUIS 5 2021- No 5mg Q.5D 5 mg 2 [facility] tablet 10-22 (two) [facility] 00:00: 00:00 times Medical 00 :00 daily. Center ELIQUIS 5 2021- No 5mg Q.5D 5 mg 2 [facility] MG tablet 10-22 (two) [facility] 00:00: 00:00 times Medical 00 :00 daily. [place] ELIQUIS 5 2019-0 2021- No 5mg Q.5D 5 mg 2 [facility] MG tablet 10-22 (two) [facility] 00:00: 00:00 times Medical 00 :00 daily. [place] ELIQUIS 5 2019-0 2021- No 5mg Q.5D 5 mg 2 [facility] MG tablet 10-22 (two) [facility] 00:00: 00:00 times Medical 00 :00 daily. [place] spironolact 2020-0 Yes TAKE 1 [facility] one 7-29 TABLET BY [place] (ALDACTONE) 00:00: MOUTH ONCE of 25 MG 00 DAILY Medicin tablet e spironolact 2020-0 Yes TAKE 1 [facility] one 7-29 TABLET BY [place] (ALDACTONE) 00:00: MOUTH ONCE of 25 MG 00 DAILY Medicin tablet e spironolact 2020-0 Yes TAKE 1 [facility] one 7-29 TABLET BY [place] (ALDACTONE) 00:00: MOUTH ONCE of 25 MG [...] MG 00 :00 Center tablet spironolact 2020-0 2- No 25mg QD Take [address] [facility] one 7-29 05-19 by mouth [facility] (ALDACTONE) 00:00: 00:00 daily. Med ical 25 MG 00 :00 Center tablet spironolact 2020-0 2022- No 25mg QD Take [address] [facility] one 7-29 05-19 by mouth [facility] (ALDACTONE) 00:00: 00:00 daily. Med ical 25 MG 00 :00 Center tablet atenolol 2019-0 Yes TAKE 1 [place] (TENORMIN) [...] Medicin e atenolol 2020-0 Yes TAKE 1 [facility] (TENORMIN) 7-10 TABLET BY [place] [facility] 50 MG 00:00: MOUTH ONCE of tablet 00 DAILY Medicin e clonidine 2019-0 Yes TAKE 1 [place] (CATAPRESS) 7-10 TABLET BY Col lege 0.3 MG 00:00: MOUTH ONCE of tablet 00 DAILY Medicin e doxazosin 2019-0 Yes TAKE 1 [facility] (CARDURA) 8 7-10 TABLET BY Col [...] vitamin C, 16:36: mouth. [place] 500 mg Medical tablet Branch calcitriol 2018-03 Yes .25ug Take 0.25 U nivers 0.25 mcg 1-04 mcg by ity of capsule 16:36: mouth. [place] [address] Medical Branch Cholecalcif 2018-03 Yes 5000U Take 5,000 [facility] qian, 1-04 Units by ity of Vitamin D3, 16:36: mouth. [facility] s 5,000 unit Medical tablet Branch [...] by ity o f 16:36: mouth at [place] [address] bedtime. Medical Branch ascorbic 2018-03 Yes 500mg Take 500 Univ ers acid, 1-04 mg by ity of vitamin C, 16:36: mouth. [place] 500 mg 39 Medical tablet Branch calcitriol 2018-03 Yes .25ug Take 0.25 U nivers 0.25 mcg 1-04 mcg by ity of capsule 16:36: mouth. [place] [address] Medical Branch Cholecalcif 2018-03 Yes 5000U Take [...] 3 ity of 0.8 gram 16:36: (three) [place] powder 39 times Medical packet daily with Branch meals. melatonin 2018-03 Yes 1{tbl} Take 1 Univ ers 10 mg Tab 1-04 tablet by ity o f 16:36: mouth at [place] [address] bedtime. Medical Branch ascorbic 2018-03 Yes 500mg Take 500 Univ ers acid, 1-04 mg by ity of vitamin C, 16:36: mouth. [place] 500 mg Medical tablet Branch calcitriol 2018-03 Yes .25ug Take 0.25 U nivers 0.25 mcg 1-04 mcg by ity of capsule 16:36: mouth. [place] [address] Medical Branch Cholecalcif 2018-03 Yes 5000U Take [...] by ity o f 16:36: mouth at [place] [address] bedtime. Medical Branch ascorbic 2018-03 Yes 500mg Take 500 Univ ers acid, 1-04 mg by ity of vitamin C, 16:36: mouth. [place] 500 mg 39 Medical tablet Branch calcitriol 2018-03 Yes .25ug Take 0.25 U nivers 0.25 mcg 1-04 mcg by ity of capsule 16:36: mouth. [place] [address] Medical Branch Cholecalcif 2018-03 Yes 5000U Take [...] 3 ity of 0.8 gram 16:36: (three) [place] powder 39 times Medical packet daily with Branch meals. melatonin 2018-03 Yes 1{tbl} Take 1 Univ ers 10 mg Tab 1-04 tablet by ity o f 16:36: mouth at [place] [address] bedtime. Medical Branch ascorbic 2018-03 Yes 500mg Take 500 Univ ers acid, 1-04 mg by ity of vitamin C, 16:36: mouth. [place] 500 mg Medical tablet Branch calcitriol 2018-03 Yes .25ug Take 0.25 U nivers 0.25 mcg 1-04 mcg by ity of capsule 16:36: mouth. [place] [address] Medical Branch Cholecalcif 2018-03 Yes 5000U Take [...] by ity o f 16:36: mouth at [place] [address] bedtime. Medical Branch ascorbic 2018-03 Yes 500mg Take 500 Univ ers acid, 1-04 mg by ity of vitamin C, 16:36: mouth. [place] 500 mg 39 Medical tablet Branch calcitriol 2018-03 Yes .25ug Take 0.25 U nivers 0.25 mcg 1-04 mcg by ity of capsule 16:36: mouth. [place] [address] Medical Branch Cholecalcif 2018-03 Yes 5000U Take [...] by ity o f 16:36: mouth at [place] [address] bedtime. Medical Branch aspirin 81 2018-03 Yes 81mg Take 81 mg U nivers mg EC 1-04 by mouth ity of tablet 16:32: daily. [place] [address] Medical Branch glimepiride 2018-03 Yes 4mg Take 4 mg U nivers 4 mg tablet 1-04 by mouth ity of 16:32: daily with [place] [address] breakfast. Medical Branch aspirin 81 2018-03 Yes 81mg Take 81 mg U nivers mg EC 1-04 by mouth ity of tablet 16:32: daily. [place] [address] Medical Branch glimepiride 2018-03 Yes 4mg Take 4 mg U nivers 4 mg tablet 1-04 by mouth ity of 16:32: daily with [place] [address] breakfast. Medical Branch aspirin 81 2018-03 Yes 81mg Take 81 mg U nivers mg EC 1-04 by mouth ity of tablet 16:32: daily. [place] [address] Medical Branch glimepiride 2018-03 Yes 4mg Take 4 mg U nivers 4 mg tablet 1-04 by mouth ity of 16:32: daily with [place] [address] breakfast. Medical Branch aspirin 81 2018-03 Yes 81mg Take 81 mg U nivers mg EC 1-04 by mouth ity of tablet 16:32: daily. [place] [address] Medical Branch glimepiride 2018-03 Yes 4mg Take 4 mg U nivers 4 mg tablet 1-04 by mouth ity of 16:32: daily with [place] [address] breakfast. Medical Branch aspirin 81 2018-03 Yes 81mg Take 81 mg U nivers mg EC 1-04 by mouth ity of tablet 16:32: daily. [place] [address] Medical Branch glimepiride 2018-03 Yes 4mg Take 4 mg U nivers 4 mg tablet 1-04 by mouth ity of 16:32: daily with [place] 24 breakfast. Medical Branch aspirin 81 2018-03 Yes 81mg Take 81 mg U nivers mg EC 1-04 by mouth ity of tablet 16:32: daily. [place] [address] Medical Branch glimepiride 2018-03 Yes 4mg Take 4 mg U nivers 4 mg tablet 1-04 by mouth ity of 16:32: daily with [place] [address] breakfast. Medical Branch metFORMIN 2018-03 Yes TAKE [...] o f Misc 00:00: ONCE DAILY [place] [facility] Branch ONETOUCH 2019-1 Yes USE Univers VERIO FLEX 0-02 DIRECTED ity o f Misc 00:00: ONCE DAILY [place] [facility] Branch ONETOUCH 2019-1 Yes USE Univers VERIO FLEX 0-02 DIRECTED ity o f Misc 00:00: ONCE DAILY [place] [facility] Branch ONETOUCH 2019-1 Yes USE Univers VERIO FLEX 0-02 DIRECTED ity o f Misc 00:00: ONCE DAILY [place] [facility] Branch ONETOUCH 2019-1 Yes USE Univers VERIO FLEX 0-02 DIRECTED ity o f Misc 00:00: ONCE DAILY [place] [facility] ONETOUCH 2019-1 Yes USE Univers VERIO FLEX 0-02 DIRECTED ity o f Misc 00:00: ONCE DAILY [place] [facility] clopidogrel 2019-0 Yes 75mg Take 75 mg Univers 75 mg 6-17 by mouth. ity of tablet 00:00: [place] [facility] clopidogrel 2019-0 Yes 75mg Take 75 mg Univers 75 mg 6-17 by mouth. ity of tablet 00:00: [place] [facility] clopidogrel 2019-0 Yes 75mg Take 75 mg Univers 75 mg 6-17 by mouth. ity of tablet 00:00: [place] [facility] clopidogrel 2019-0 Yes 75mg Take 75 mg Univers 75 mg 6-17 by mouth. ity of tablet 00:00: [place] [facility] clopidogrel 2019-0 Yes 75mg Take 75 mg Univers 75 mg 6-17 by mouth. ity of tablet 00:00: [place] [facility] clopidogrel 2019-0 Yes 75mg Take 75 mg Univers 75 mg 6-17 by mouth. ity of tablet 00:00: [place] [facility] acetaminoph 2017- Yes 1{tbl} Take 1 [...] by mouth ity of tablet 00:00: at [place] [address] bedtime. Medical Branch pravastatin 2017-0 Yes 20mg Take 20 mg Univers 20 mg 8-02 by mouth ity of tablet 00:00: at [place] [address] bedtime. Medical Branch pravastatin 2017-0 Yes 20mg Take 20 mg Univers 20 mg 8-02 by mouth ity of tablet 00:00: at [place] [address] bedtime. Medical Branch pravastatin 2017-0 Yes 20mg Take 20 mg Univers 20 mg 8-02 by mouth ity of tablet 00:00: at [place] [address] bedtime. Medical Branch pravastatin 2017-0 Yes 20mg Take 20 mg Univers 20 mg 8-02 by mouth ity of tablet 00:00: at [place] [address] bedtime. Medical Branch pravastatin 2017-0 Yes 20mg Take 20 mg Univers 20 mg 8-02 by mouth ity of tablet 00:00: at [place] [address] bedtime. [facility] Branch atenolol 50 Yes 50mg Take 50 mg Univers mg tablet 7-20 by mouth ity of 00:00: daily. [facility] atenolol 50 0 Yes 50mg Take 50 mg Univers mg tablet 7-20 by mouth ity of 00:00: daily. [facility] atenolol 50 0 Yes 50mg Take 50 mg Univers mg tablet 7-20 by mouth ity of 00:00: daily. [facility] atenolol 50 0 Yes 50mg Take 50 mg Univers mg tablet 7-20 by mouth ity of 00:00: daily. [facility] atenolol 50 0 Yes 50mg Take 50 mg Univers mg tablet 7-20 by mouth ity of 00:00: daily. [facility] atenolol 50 0 Yes 50mg Take 50 mg Univers mg tablet 7-20 by mouth ity of 00:00: daily. [facility] Branch JANUVIA 50 0 Yes 50mg Take 50 mg U nivers mg tablet 7-17 by mouth ity of 00:00: daily. [facility] JANUVIA 50 2017-0 Yes 50mg Take 50 mg U nivers mg tablet 7-17 by mouth ity of 00:00: daily. [facility] JANUVIA 50 0 Yes 50mg Take [...] [place] 00 evening. Medical Branch ramipril 5 Yes [...] every ity of 00:00: evening. Medical Branch [facility] 10 Yes 10mg 10 mg Unive rs mg Tab 6-21 every ity of 00:00: evening. [facility] Branch BELSOMRA 10 0 Yes 10mg 10 mg Unive rs mg Tab 6-21 every ity of 00:00: evening. [facility] 10 Yes 10mg 10 mg Unive rs mg Tab 6-21 every ity of 00:00: evening. [facility] KLOR-CON 0 Yes Univers M10 10 mEq 6-20 ity of tablet 00:00: [facility] KLOR-CON 0 Yes Univers M10 10 mEq 6-20 ity of tablet 00:00: [facility] KLWI-CON 0 Yes Univers M10 10 mEq 6-20 ity of tablet 00:00: [facility] KLWI-CON 0 Yes Univers M10 10 mEq 6-20 ity of tablet 00:00: [facility]-CON 0 Yes Univers M10 10 mEq 6-20 ity of tablet 00:00: [facility] KLWI-CON 0 Yes Univers M10 10 mEq 6-20 ity of tablet 00:00: [place] [facility] Branch cloniDINE 2016-0 Yes .1mg Take 0.1 Univ ers 0.1 mg 5-25 mg by ity of tablet 00:00: mouth 2 ([facility]) Medical times Branch daily. cloniDINE 2017-0 [...] by ity of tablet 00:00: mouth 2 [place] [address] (two) [facility] times [place] daily. NIFEdipine Yes 90mg Take 90 mg U nivers XL 90 mg 24 5-24 by mouth ity of hr tablet 00:00: daily. [address] NIFEdipine Yes 90mg Take 90 mg U nivers XL 90 mg 24 5-24 by mouth ity of hr tablet 00:00: daily. [address] NIFEdipine Yes 90mg Take 90 mg U nivers XL 90 mg 24 5-24 by mouth ity of hr tablet 00:00: daily. [address] NIFEdipine Yes 90mg Take 90 mg U nivers XL 90 mg 24 5-24 by mouth ity of hr tablet 00:00: daily. [address] NIFEdipine Yes 90mg Take 90 mg U nivers XL 90 mg 24 5-24 by mouth ity of hr tablet 00:00: daily. [address] NIFEdipine Yes 90mg Take 90 mg U nivers XL 90 mg 24 5-24 by mouth ity of hr tablet 00:00: daily. [address] Branch hydroCHLORO 2016-0 Yes Univer s thiazide 25 5-23 ity of mg tablet 00:00: [address] [facility] hydroCHLORO 2016-0 Yes [facility] thiazide 25 5-23 ity of mg tablet 00:00: [address] hydroCHLORO 2016-0 Yes Univer [facility] thiazide 25 5-23 ity of mg tablet 00:00: [address] hydroCHLORO 2017-0 Yes Univer s thiazide 25 5-23 ity of mg tablet 00:00: [address] hydroCHLORO 2016-0 Yes Univer s thiazide 25 5-23 ity of mg tablet 00:00: [address] hydroCHLORO 2016-0 Yes Univer s thiazide 25 5-23 ity of mg tablet 00:00: [address] NIFEdipine 0 Yes Essential 90mg QD Take 1 [facility] (PROCARDIA 4-06 hypertensio tablet by [employer]) 90 mg 00:00: n, benign mouth extended 00 daily. release tablet NIFEdipine Yes Essential 30mg QD Take 1 [facility] (PROCARDIA 4-06 hypertensio tablet by [employer]) 30 mg 00:00: n, benign mouth extended 00 daily Take release in tablet addition to 90 mg to make 120 mg daily. 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 release tablet NIFEdipine 0 Yes Essential 30mg QD Take 1 [facility] (PROCARDIA 4-06 hypertensio tablet by [employer]) 30 mg 00:00: n, benign mouth extended 00 daily Take release in tablet addition to 90 mg to make 120 mg daily. 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 release tablet NIFEdipine Yes Essential 30mg QD Take 1 [facility] (PROCARDIA 4-06 hypertensio tablet by [employer]) 30 mg 00:00: n, benign mouth extended 00 daily Take release in tablet addition to 90 mg to make 120 mg daily. metFORMIN 2016-0 Yes Type 2 1000mg Take 2 [facility] (GLUCOPHAGE 4-06 diabetes tablets by [employer] ) 500 mg 00:00: mellitus mouth 2 tablet 00 with times diabetic daily nephropathy (with , meals) unspecified Increased long-term dose. insulin use status NIFEdipine Yes Essential 90mg QD Take 1 [facility] (PROCARDIA 4-06 hypertensio tablet by [employer]) 90 mg 00:00: n, benign mouth extended 00 daily. release tablet NIFEdipine 0 Yes Essential 30mg QD Take 1 [facility] (PROCARDIA 4-06 hypertensio tablet by [employer]) 30 mg 00:00: n, benign mouth extended 00 daily Take release in tablet addition to 90 mg to make 120 mg daily. 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 release tablet NIFEdipine Yes Essential 30mg QD Take 1 [facility] (PROCARDIA 4-06 hypertensio tablet by [employer]) 30 mg 00:00: n, benign mouth extended 00 daily Take release in tablet addition to 90 mg to make 120 mg daily. 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 release tablet NIFEdipine Yes Essential 30mg QD Take 1 [facility] (PROCARDIA 4-06 hypertensio tablet by [employer]) 30 mg 00:00: n, benign mouth extended 00 daily Take release in tablet addition to 90 mg to make 120 mg daily. 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 release tablet NIFEdipine 0 Yes Essential 30mg QD Take 1 [facility] (PROCARDIA 4-06 hypertensio tablet by [employer]) 30 mg 00:00: n, benign mouth extended 00 daily Take release in tablet addition to 90 mg to make 120 mg daily. metFORMIN Yes Type 2 1000mg Take 2 [facility] (GLUCOPHAGE 4-06 diabetes tablets by [employer] ) 500 mg 00:00: mellitus mouth 2 tablet 00 with times diabetic daily nephropathy (with , meals) unspecified Increased long-term dose. insulin use status NIFEdipine Yes Essential 90mg QD Take 1 [facility] (PROCARDIA 4-06 hypertensio tablet by [employer]) 90 mg 00:00: n, benign mouth extended 00 daily. release tablet NIFEdipine 0 Yes Essential 30mg QD Take 1 [facility] (PROCARDIA 4-06 hypertensio tablet by [employer]) 30 mg 00:00: n, benign mouth extended 00 daily Take release in tablet addition to 90 mg to make 120 mg daily. metFORMIN 2016- Yes Type 2 1000mg Take 2 [facility] (GLUCOPHAGE 4-06 diabetes tablets by [employer] ) 500 mg 00:00: mellitus mouth 2 tablet 00 with times diabetic daily nephropathy (with , meals) unspecified Increased long-term dose. insulin use status NIFEdipine Yes Essential 90mg QD Take 1 [facility] (PROCARDIA 4-06 hypertensio tablet by [employer]) 90 mg 00:00: n, benign mouth extended 00 daily. release tablet NIFEdipine 0 Yes Essential 30mg QD Take 1 [facility] (PROCARDIA 4-06 hypertensio tablet by [employer]) 30 mg 00:00: n, benign mouth extended 00 daily Take release in tablet addition to 90 mg to make 120 mg daily. metFORMIN Yes Type 2 1000mg Q.5D Take 2 [facility] (GLUCOPHAGE 4-06 diabetes tablets by [employer] ) 500 mg 00:00: mellitus mouth 2 tablet 00 with times diabetic daily nephropathy (with , meals) unspecified Increased long-term dose. insulin use status NIFEdipine Yes Essential 90mg QD Take 1 [facility] (PROCARDIA 4-06 hypertensio tablet by [employer]) 90 mg 00:00: n, benign mouth extended 00 daily. release tablet NIFEdipine 0 Yes Essential 30mg QD Take 1 [facility] (PROCARDIA 4-06 hypertensio tablet by [employer]) 30 mg 00:00: n, benign mouth extended 00 daily Take release in tablet addition to 90 mg to make 120 mg daily. 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 release tablet NIFEdipine 0 Yes Essential 30mg QD Take 1 [facility] (PROCARDIA 4-06 hypertensio tablet by [employer] XL) 30 mg 00:00: n, benign mouth extended 00 daily Take release in tablet addition to 90 mg to make 120 mg daily. 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 release tablet NIFEdipine Yes Essential 30mg QD Take 1 [facility] (PROCARDIA 4-06 hypertensio tablet by [employer]) 30 mg 00:00: n, benign mouth extended 00 daily Take release in tablet addition to 90 mg to make 120 mg daily. 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 lisinopril Yes Essential 40mg QD Take 1 [facility] (ZESTRIL) 3-31 hypertensio tablet by [employer] 40 mg 00:00: n mouth tablet 00 daily. NIFEdipine Yes Essential 30mg QD Take 1 [facility] (PROCARDIA 3-31 hypertensio tablet by [employer] XL) 30 mg 00:00: n mouth extended 00 daily Take release in tablet addition to Nifedipine 90mg to make a total of 120 mg daily. cloNIDine Yes Essential 1{patch Apply 1 [facility] (CATAPRES-T 3-31 hypertensio } Patch to [employer] TS-3) 0.3 00:00: n skin as mg/24 hr 00 directed patch weekly Switch Clonidine 0.3 mg tablet to [facility]ap[facility] patch. atenolol Yes Essential 100mg QD Take 2 H arris (TENORMIN) 3-31 hypertensio tablets by [employer] 50 mg 00:00: n mouth tablet 00 daily. furosemide Yes Essential 40mg Take 1 [facility] (LASIX) 40 - hypertensio tablet by [facility] mg tablet 00:00: n mouth 00 every 8 hours If needed you can increase to 2 pills (80mg) every 8 hours. ergocalcife Yes Vitamin D 44346P Take 1 [facility] rol 06-23 deficiency capsule by [facility] (VITAMIN 00:00: mouth D2) 50,000 00 weekly. unit capsule hydrALAZINE Yes Essential 100mg Take 1 [facility] (APRESOLINE 06-23 hypertensio tablet by [facility] ) 100 mg 00:00: n mouth 3 tablet 00 times daily. aspirin Yes Essential 81mg QD Chew and H arris (ASPIRIN) 06-23 hypertensio swallow 1 [facility] 81 mg 00:00: n tablet by chewable 00 mouth tablet daily. pravastatin Yes Dyslipidemi 20mg Take 1 [facility] (PRAVACHOL) 06-23 a tablet by [facility] 20 mg 00:00: mouth at tablet 00 bedtime nightly Decreased dose. glimepiride Yes Type 2 DM 8mg QD Take 2 [facility] (AMARYL) 4 06-23 with CKD tablets by [facility] mg tablet 00:00: stage 4 and mouth 00 hypertensio every n morning (before breakfast) . lisinopril Yes Essential 40mg QD Take 1 [facility] (ZESTRIL) 06-23 hypertensio tablet by [facility] 40 mg 00:00: n mouth tablet 00 daily. NIFEdipine Yes Essential 30mg QD Take 1 [facility] (PROCARDIA 331 hypertensio tablet by [facility] XL) 30 mg 00:00: n mouth extended 00 daily Take release in tablet addition to Nifedipine 90mg to make a total of 120 mg daily. cloNIDine Yes Essential 1{patch Apply 1 [facility] (CATAPRES-T 3- hypertensio } Patch to [facility] TS-3) 0.3 00:00: n skin as mg/24 hr 00 directed patch weekly Switch Clonidine 0.3 mg tablet to [facility] patch. atenolol Yes Essential 100mg QD Take 2 H arris (TENORMIN) 3- hypertensio tablets by [facility] 50 mg 00:00: n mouth tablet 00 daily. furosemide Yes Essential 40mg Take 1 [facility] (LASIX) 40 3-31 hypertensio tablet by [facility] mg tablet 00:00: n mouth 00 every 8 hours If needed you can increase to 2 pills (80mg) every 8 hours. ergocalcife Yes Vitamin D 81251M Take 1 [facility] rol 06-23 deficiency capsule by [facility] (VITAMIN 00:00: mouth D2) 50,000 00 weekly. unit capsule hydrALAZINE Yes Essential 100mg Take 1 [facility] (APRESOLINE 06-23 hypertensio tablet by [facility] ) 100 mg 00:00: n mouth 3 tablet 00 times daily. aspirin Yes Essential 81mg QD Chew and H arris (ASPIRIN) 06-23 hypertensio swallow 1 [facility] 81 mg 00:00: n tablet by chewable 00 mouth tablet daily. pravastatin Yes Dyslipidemi 20mg Take 1 [facility] (PRAVACHOL) 06-23 a tablet by [facility] 20 mg 00:00: mouth at tablet 00 bedtime nightly Decreased dose. glimepiride Yes Type 2 DM 8mg QD Take 2 [facility] (AMARYL) 4 06-23 with CKD tablets by [facility] mg tablet 00:00: stage 4 and mouth 00 hypertensio every n morning (before breakfast) . lisinopril Yes Essential 40mg QD Take 1 [facility] (ZESTRIL) 06-23 hypertensio tablet by [facility] 40 mg 00:00: n mouth tablet 00 daily. NIFEdipine Yes Essential 30mg QD Take 1 [facility] (PROCARDIA 06-23 hypertensio tablet by [facility] XL) 30 mg 00:00: n mouth extended 00 daily Take release in tablet addition to Nifedipine 90mg to make a total of 120 mg daily. cloNIDine Yes Essential 1{patch Apply 1 [facility] (CATAPRES-T 06-23 hypertensio } Patch to [facility] TS-3) 0.3 00:00: n skin as mg/24 hr 00 directed patch weekly Switch Clonidine 0.3 mg tablet to [facility] patch. atenolol Yes Essential 100mg QD Take 2 H [facility] (TENORMIN) 06-23 hypertensio tablets by [facility] 50 mg 00:00: n mouth tablet 00 daily. furosemide Yes Essential 40mg Take 1 [facility] (LASIX) 40 06-23 hypertensio tablet by [facility] mg tablet 00:00: n mouth 00 every 8 hours If needed you can increase to 2 pills (80mg) every 8 hours. ergocalcife Yes Vitamin D 90120N Take 1 [facility] rol 06-23 deficiency capsule by [facility] (VITAMIN 00:00: mouth D2) 50,000 00 weekly. unit capsule hydrALAZINE Yes Essential 100mg Take 1 [facility] (APRESOLINE 06-23 hypertensio tablet by [facility] ) 100 mg 00:00: n mouth 3 tablet 00 times daily. aspirin Yes Essential 81mg QD Chew and H [facility] (ASPIRIN) 06-23 hypertensio swallow 1 [facility] 81 mg 00:00: n tablet by chewable 00 mouth tablet daily. pravastatin Yes Dyslipidemi 20mg Take 1 [facility] (PRAVACHOL) 06-23 a tablet by [facility] 20 mg 00:00: mouth at tablet 00 bedtime nightly Decreased dose. glimepiride Yes Type 2 DM 8mg QD Take 2 [facility] (AMARYL) 4 06-23 with CKD tablets by [facility] mg tablet 00:00: stage 4 and mouth 00 hypertensio every n morning (before breakfast) . lisinopril Yes Essential 40mg QD Take 1 [facility] (ZESTRIL) 06-23 hypertensio tablet by [facility] 40 mg 00:00: n mouth tablet 00 daily. NIFEdipine Yes Essential 30mg QD Take 1 [facility] (PROCARDIA 06-23 hypertensio tablet by [facility] XL) 30 mg 00:00: n mouth extended 00 daily Take release in tablet addition to Nifedipine 90mg to make a total of 120 mg daily. cloNIDine Yes Essential 1{patch Apply 1 [facility] (CATAPRES-T 06-23 hypertensio } Patch to [facility] TS-3) 0.3 00:00: n skin as mg/24 hr 00 directed patch weekly Switch Clonidine 0.3 mg tablet to [facility] patch. atenolol Yes Essential 100mg QD Take 2 [facility] (TENORMIN) 06-23 hypertensio tablets by [facility] 50 mg 00:00: n mouth tablet 00 daily. furosemide Yes Essential 40mg Take 1 [facility] (LASIX) 40 06-23 hypertensio tablet by [facility] mg tablet 00:00: n mouth 00 every 8 hours If needed you can increase to 2 pills (80mg) every 8 hours. ergocalcife Yes Vitamin D 76518S Take 1 [facility] rol 06-23 deficiency capsule by [facility] (VITAMIN 00:00: mouth D2) 50,000 00 weekly. unit capsule hydrALAZINE Yes Essential 100mg Take 1 [facility] (APRESOLINE 06-23 hypertensio tablet by [facility] ) 100 mg 00:00: n mouth 3 tablet 00 times daily. aspirin Yes Essential 81mg QD Chew and H [facility] (ASPIRIN) 06-23 hypertensio swallow 1 [facility] 81 mg 00:00: n tablet by chewable 00 mouth tablet daily. pravastatin Yes Dyslipidemi 20mg Take 1 [facility] (PRAVACHOL) 06-23 a tablet by [facility] 20 mg 00:00: mouth at tablet 00 bedtime nightly Decreased dose. glimepiride Yes Type 2 DM 8mg QD Take 2 [facility] (AMARYL) 4 06-23 with CKD tablets by [facility] mg tablet 00:00: stage 4 and mouth 00 hypertensio every n morning (before breakfast) . lisinopril Yes Essential 40mg QD Take 1 [facility] (ZESTRIL) 06-23 hypertensio tablet by [facility] 40 mg 00:00: n mouth tablet 00 daily. NIFEdipine Yes Essential 30mg QD Take 1 [facility] (PROCARDIA -31 hypertensio tablet by [facility] XL) 30 mg 00:00: n mouth extended 00 daily Take release in tablet addition to Nifedipine 90mg to make a total of 120 mg daily. cloNIDine Yes Essential 1{patch Apply 1 [facility] (CATAPRES-T 06-23 hypertensio } Patch to [facility] TS-3) 0.3 00:00: n skin as mg/24 hr 00 directed patch weekly Switch Clonidine 0.3 mg tablet to [facility] patch. atenolol Yes Essential 100mg QD Take 2 H arris (TENORMIN) - hypertensio tablets by [facility] 50 mg 00:00: n mouth tablet 00 daily. furosemide Yes Essential 40mg Take 1 [facility] (LASIX) 40 - hypertensio tablet by [facility] mg tablet 00:00: n mouth 00 every 8 hours If needed you can increase to 2 pills (80mg) every 8 hours. ergocalcife Yes Vitamin D 78089Q Take 1 [facility] rol 06-23 deficiency capsule by [facility] (VITAMIN 00:00: mouth D2) 50,000 00 weekly. unit capsule hydrALAZINE Yes Essential 100mg Take 1 [facility] (APRESOLINE -31 hypertensio tablet by [facility] ) 100 mg 00:00: n mouth 3 tablet 00 times daily. aspirin Yes Essential 81mg QD Chew and H arris (ASPIRIN) 06-23 hypertensio swallow 1 [facility] 81 mg 00:00: n tablet by chewable 00 mouth tablet daily. pravastatin Yes Dyslipidemi 20mg Take 1 [facility] (PRAVACHOL) 06-23 a tablet by [facility] 20 mg 00:00: mouth at tablet 00 bedtime nightly Decreased dose. glimepiride Yes Type 2 DM 8mg QD Take 2 [facility] (AMARYL) 4 06-23 with CKD tablets by [facility] mg tablet 00:00: stage 4 and mouth 00 hypertensio every n morning (before breakfast) . lisinopril Yes Essential 40mg QD Take 1 [facility] (ZESTRIL) 06-23 hypertensio tablet by [facility] 40 mg 00:00: n mouth tablet 00 daily. NIFEdipine Yes Essential 30mg QD Take 1 [facility] (PROCARDIA 3-31 hypertensio tablet by [facility] XL) 30 mg 00:00: n mouth extended 00 daily Take release in tablet addition to Nifedipine 90mg to make a total of 120 mg daily. cloNIDine Yes Essential 1{patch Apply 1 [facility] (CATAPRES-T 06-23 hypertensio } Patch to [facility] TS-3) 0.3 00:00: n skin as mg/24 hr 00 directed patch weekly Switch Clonidine 0.3 mg tablet to [facility] patch. atenolol Yes Essential 100mg QD Take 2 H [facility] (TENORMIN) 3-31 hypertensio tablets by [facility] 50 mg 00:00: n mouth tablet 00 daily. furosemide Yes Essential 40mg Take 1 [facility] (LASIX) 40 3-31 hypertensio tablet by [facility] mg tablet 00:00: n mouth 00 every 8 hours If needed you can increase to 2 pills (80mg) every 8 hours. ergocalcife Yes Vitamin D 93775F Take 1 [facility] rol 3 deficiency capsule by [facility] (VITAMIN 00:00: mouth D2) 50,000 00 weekly. unit capsule hydrALAZINE Yes Essential 100mg Take 1 [facility] (APRESOLINE 06-23 hypertensio tablet by [facility] ) 100 mg 00:00: n mouth 3 tablet 00 times daily. aspirin Yes Essential 81mg QD Chew and H arris (ASPIRIN) 06-23 hypertensio swallow 1 [facility] 81 mg 00:00: n tablet by chewable 00 mouth tablet daily. pravastatin Yes Dyslipidemi 20mg Take 1 [facility] (PRAVACHOL) 06-23 a tablet by [facility] 20 mg 00:00: mouth at tablet 00 bedtime nightly Decreased dose. glimepiride Yes Type 2 DM 8mg QD Take 2 [facility] (AMARYL) 4 06-23 with CKD tablets by [facility] mg tablet 00:00: stage 4 and mouth 00 hypertensio every n morning (before breakfast) . lisinopril Yes Essential 40mg QD Take 1 [facility] (ZESTRIL) 06-23 hypertensio tablet by [facility] 40 mg 00:00: n mouth tablet 00 daily. NIFEdipine Yes Essential 30mg QD Take 1 [facility] (PROCARDIA 06-23 hypertensio tablet by [facility] XL) 30 mg 00:00: n mouth extended 00 daily Take release in tablet addition to Nifedipine 90mg to make a total of 120 mg daily. cloNIDine Yes Essential 1{patch Apply 1 [facility] (CATAPRES-T 06-23 hypertensio } Patch to [facility] TS-3) 0.3 00:00: n skin as mg/24 hr 00 directed patch weekly Switch Clonidine 0.3 mg tablet to [facility] patch. atenolol Yes Essential 100mg QD Take 2 H arris (TENORMIN) 3 hypertensio tablets by [facility] 50 mg 00:00: n mouth tablet 00 daily. furosemide Yes Essential 40mg Take 1 [facility] (LASIX) 40 06-23 hypertensio tablet by [facility] mg tablet 00:00: n mouth 00 every 8 hours If needed you can increase to 2 pills (80mg) every 8 hours. ergocalcife Yes Vitamin D 31654M Take 1 [facility] rol 06-23 deficiency capsule by [facility] (VITAMIN 00:00: mouth D2) 50,000 00 weekly. unit capsule hydrALAZINE Yes Essential 100mg Take 1 [facility] (APRESOLINE 06-23 hypertensio tablet by [facility] ) 100 mg 00:00: n mouth 3 tablet 00 times daily. aspirin Yes Essential 81mg QD Chew and H arris (ASPIRIN) 06-23 hypertensio swallow 1 [facility] 81 mg 00:00: n tablet by chewable 00 mouth tablet daily. pravastatin Yes Dyslipidemi 20mg Take 1 [facility] (PRAVACHOL) 06-23 a tablet by [facility] 20 mg 00:00: mouth at tablet 00 bedtime nightly Decreased dose. glimepiride Yes Type 2 DM 8mg QD Take 2 [facility] (AMARYL) 4 06-23 with CKD tablets by [facility] mg tablet 00:00: stage 4 and mouth 00 hypertensio every n morning (before breakfast) . lisinopril Yes Essential 40mg QD Take 1 [facility] (ZESTRIL) 06-23 hypertensio tablet by [facility] 40 mg 00:00: n mouth tablet 00 daily. NIFEdipine Yes Essential 30mg QD Take 1 [facility] (PROCARDIA 06-23 hypertensio tablet by [facility] XL) 30 mg 00:00: n mouth extended 00 daily Take release in tablet addition to Nifedipine 90mg to make a total of 120 mg daily. cloNIDine Yes Essential 1{patch Apply 1 [facility] (CATAPRES-T 06-23 hypertensio } Patch to [facility] TS-3) 0.3 00:00: n skin as mg/24 hr 00 directed patch weekly Switch Clonidine 0.3 mg tablet to [facility] patch. atenolol Yes Essential 100mg QD Take 2 H arris (TENORMIN) 06-23 hypertensio tablets by [facility] 50 mg 00:00: n mouth tablet 00 daily. furosemide Yes Essential 40mg Take 1 [facility] (LASIX) 40 06-23 hypertensio tablet by [facility] mg tablet 00:00: n mouth 00 every 8 hours If needed you can increase to 2 pills (80mg) every 8 hours. ergocalcife Yes Vitamin D 82058H Take 1 [facility] rol 06-23 deficiency capsule by [facility] (VITAMIN 00:00: mouth D2) 50,000 00 weekly. unit capsule hydrALAZINE 2017-0 Yes Essential 100mg Take 1 [facility] (APRESOLINE 06-23 hypertensio tablet by [facility] ) 100 mg 00:00: n mouth 3 tablet 00 times daily. aspirin Yes Essential 81mg QD Chew and H arris (ASPIRIN) 06-23 hypertensio swallow 1 [facility] 81 mg 00:00: n tablet by chewable 00 mouth tablet daily. pravastatin Yes Dyslipidemi 20mg Take 1 [facility] (PRAVACHOL) 06-23 a tablet by [facility] 20 mg 00:00: mouth at tablet 00 bedtime nightly Decreased dose. glimepiride Yes Type 2 DM 8mg QD Take 2 [facility] (AMARYL) 4 06-23 with CKD tablets by [facility] mg tablet 00:00: stage 4 and mouth 00 hypertensio every n morning (before breakfast) . lisinopril Yes Essential 40mg QD Take 1 [facility] (ZESTRIL) 06-23 hypertensio tablet by [facility] 40 mg 00:00: n mouth tablet 00 daily. NIFEdipine Yes Essential 30mg QD Take 1 [facility] (PROCARDIA 06-23 hypertensio tablet by [facility] XL) 30 mg 00:00: n mouth extended 00 daily Take release in tablet addition to Nifedipine 90mg to make a total of 120 mg daily. cloNIDine Yes Essential 1{patch Apply 1 [facility] (CATAPRES-T 06-23 hypertensio } Patch to [facility] TS-3) 0.3 00:00: n skin as mg/24 hr 00 directed patch weekly Switch Clonidine 0.3 mg tablet to [facility] patch. atenolol Yes Essential 100mg QD Take 2 H arr[facility] (TENORMIN) 06-23 hypertensio tablets by [facility] 50 mg 00:00: n mouth tablet 00 daily. furosemide Yes Essential 40mg Take 1 [facility] (LASIX) 40 06-23 hypertensio tablet by [facility] mg tablet 00:00: n mouth 00 every 8 hours If needed you can increase to 2 pills (80mg) every 8 hours. ergocalcife Yes Vitamin D 97015Z Take 1 Casanova rol 06-23 deficiency capsule by [facility] (VITAMIN 00:00: mouth D2) 50,000 00 weekly. unit capsule hydrALAZINE Yes Essential 100mg Take 1 [facility] (APRESOLINE - hypertensio tablet by [facility] ) 100 mg 00:00: n mouth 3 tablet 00 times daily. aspirin Yes Essential 81mg QD Chew and H arris (ASPIRIN) 06-23 hypertensio swallow 1 [facility] 81 mg 00:00: n tablet by chewable 00 mouth tablet daily. pravastatin Yes Dyslipidemi 20mg Take 1 [facility] (PRAVACHOL) 06-23 a tablet by [facility] 20 mg 00:00: mouth at tablet 00 bedtime nightly Decreased dose. glimepiride Yes Type 2 DM 8mg QD Take 2 [facility] (AMARYL) 4 06-23 with CKD tablets by [facility] mg tablet 00:00: stage 4 and mouth 00 hypertensio every n morning (before breakfast) . lisinopril Yes Essential 40mg QD Take 1 [facility] (ZESTRIL) 06-23 hypertensio tablet by [facility] 40 mg 00:00: n mouth tablet 00 daily. NIFEdipine Yes Essential 30mg QD Take 1 [facility] (PROCARDIA 06-23 hypertensio tablet by [facility] XL) 30 mg 00:00: n mouth extended 00 daily Take release in tablet addition to Nifedipine 90mg to make a total of 120 mg daily. cloNIDine Yes Essential 1{patch Apply 1 [facility] (CATAPRES-T 06-23 hypertensio } Patch to [facility] TS-3) 0.3 00:00: n skin as mg/24 hr 00 directed patch weekly Switch Clonidine 0.3 mg tablet to Catapres patch. atenolol Yes Essential 100mg QD Take 2 H arris (TENORMIN) 06-23 hypertensio tablets by [facility] 50 mg 00:00: n mouth tablet 00 daily. furosemide Yes Essential 40mg Take 1 [facility] (LASIX) 40 06-23 hypertensio tablet by [facility] mg tablet 00:00: n mouth 00 every 8 hours If needed you can increase to 2 pills (80mg) every 8 hours. ergocalcife Yes Vitamin D [id number] Take 1 [place] rol 06-23 deficiency capsule by [facility] (VITAMIN 00:00: mouth D2) 50,000 00 weekly. unit capsule hydrALAZINE Yes Essential 100mg Take 1 [facility] (APRESOLINE 06-23 hypertensio tablet by [facility] ) 100 mg 00:00: n mouth 3 tablet 00 times daily. aspirin Yes Essential 81mg QD Chew and H arris (ASPIRIN) 06-23 hypertensio swallow 1 [facility] 81 mg 00:00: n tablet by chewable 00 mouth tablet daily. pravastatin Yes Dyslipidemi 20mg Take 1 [facility] (PRAVACHOL) 06-23 a tablet by [facility] 20 mg 00:00: mouth at tablet 00 bedtime nightly Decreased dose. glimepiride Yes Type 2 DM 8mg QD Take 2 [facility] (AMARYL) 4 06-23 with CKD tablets by [facility] mg tablet 00:00: stage 4 and mouth 00 hypertensio every n morning (before breakfast) . lisinopril Yes Essential 40mg QD Take 1 Warner (ZESTRIL) 06-23 hypertensio tablet by [facility] 40 mg 00:00: n mouth tablet 00 daily. NIFEdipine Yes Essential 30mg QD Take 1 [facility] (PROCARDIA 06-23 hypertensio tablet by [facility] XL) 30 mg 00:00: n mouth extended 00 daily Take release in tablet addition to Nifedipine 90mg to make a total of 120 mg daily. cloNIDine Yes Essential 1{patch Apply 1 [facility] (CATAPRES-T 06-23 hypertensio } Patch to [facility] TS-3) 0.3 00:00: n skin as mg/24 hr 00 directed patch weekly Switch Clonidine 0.3 mg tablet to Catapres patch. atenolol Yes Essential 100mg QD Take 2 H arris (TENORMIN) 06-23 hypertensio tablets by [facility] 50 mg 00:00: n mouth tablet 00 daily. furosemide Yes Essential 40mg Take 1 [facility] (LASIX) 40 06-23 hypertensio tablet by [facility] mg tablet 00:00: n mouth 00 every 8 hours If needed you can increase to 2 pills (80mg) every 8 hours. ergocalcife Yes Vitamin D 28254J Take 1 [place] rol 06-23 deficiency capsule by [facility] (VITAMIN 00:00: mouth D2) 50,000 00 weekly. unit capsule hydrALAZINE Yes Essential 100mg Take 1 [facility] (APRESOLINE 06-23 hypertensio tablet by [facility] ) 100 mg 00:00: n mouth 3 tablet 00 times daily. aspirin Yes Essential 81mg QD Chew and H arris (ASPIRIN) 06-23 hypertensio swallow 1 [facility] 81 mg 00:00: n tablet by chewable 00 mouth tablet daily. pravastatin Yes Dyslipidemi 20mg Take 1 [facility] (PRAVACHOL) 06-23 a tablet by [facility] 20 mg 00:00: mouth at tablet 00 bedtime nightly Decreased dose. glimepiride 2016- Yes Type 2 DM 8mg QD Take 2 [facility] (AMARYL) 4 06-23 with CKD tablets by [facility] mg tablet 00:00: stage 4 and mouth 00 hypertensio every n morning (before breakfast) . lisinopril Yes Essential 40mg QD Take 1 [facility] (ZESTRIL) 06-23 hypertensio tablet by [facility] 40 mg 00:00: n mouth tablet 00 daily. NIFEdipine Yes Essential 30mg QD Take 1 [facility] (PROCARDIA 06-23 hypertensio tablet by [facility] XL) 30 mg 00:00: n mouth extended 00 daily Take release in tablet addition to Nifedipine 90mg to make a total of 120 mg daily. cloNIDine Yes Essential 1{patch Apply 1 [facility] (CATAPRES-T 06-23 hypertensio } Patch to [facility] TS-3) 0.3 00:00: n skin as mg/24 hr 00 directed patch weekly Switch Clonidine 0.3 mg tablet to Catapres patch. atenolol Yes Essential 100mg QD Take 2 H arris (TENORMIN) 06-23 hypertensio tablets by [facility] 50 mg 00:00: n mouth tablet 00 daily. furosemide Yes Essential 40mg Take 1 [facility] (LASIX) 40 06-23 hypertensio tablet by [facility] mg tablet 00:00: n mouth 00 every 8 hours If needed you can increase to 2 pills (80mg) every 8 hours. ergocalcife Yes Vitamin D 76168F Take 1 [place] rol 06-23 deficiency capsule by [facility] (VITAMIN 00:00: mouth D2) 50,000 00 weekly. unit capsule hydrALAZINE Yes Essential 100mg Take 1 Warner (APRESOLINE 06-23 hypertensio tablet by [facility] ) 100 mg 00:00: n mouth 3 tablet 00 times daily. aspirin Yes Essential 81mg QD Chew and H arris (ASPIRIN) 06-23 hypertensio swallow 1 [facility] 81 mg 00:00: n tablet by chewable 00 mouth tablet daily. pravastatin Yes Dyslipidemi 20mg Take 1 Warner (PRAVACHOL) 3-31 a tablet by [facility] 20 mg 00:00: mouth at tablet 00 bedtime nightly Decreased dose. minoxidil Yes Essential 1.25mg Take 0.5 Warner (LONITEN) 1-27 hypertensio tablets by [facility] 2.5 mg 00:00: n mouth tablet 00 every 8 hours. minoxidil Yes Essential 1.25mg Take 0.5 Warner (LONITEN) 1-27 hypertensio tablets by [facility] 2.5 mg 00:00: n mouth tablet 00 every 8 hours. minoxidil Yes Essential 1.25mg Take 0.5 Warner (LONITEN) 1-27 hypertensio tablets by [facility] 2.5 mg 00:00: n mouth tablet 00 every 8 hours. minoxidil Yes Essential 1.25mg Take 0.5 Warner (LONITEN) 1-27 hypertensio tablets by [facility] 2.5 mg 00:00: n mouth tablet 00 every 8 hours. minoxidil Yes Essential 1.25mg Take 0.5 Warner (LONITEN) 1-27 hypertensio tablets by [facility] 2.5 mg 00:00: n mouth tablet 00 every 8 hours. minoxidil Yes Essential 1.25mg Take 0.5 Warner (LONITEN) 1-27 hypertensio tablets by [facility] 2.5 mg 00:00: n mouth tablet 00 every 8 hours. minoxidil Yes Essential 1.25mg Take 0.5 Warner (LONITEN) 1-27 hypertensio tablets by [facility] 2.5 mg 00:00: n mouth tablet 00 every 8 hours. minoxidil Yes Essential 1.25mg Take 0.5 Warner (LONITEN) 1-27 hypertensio tablets by [facility] 2.5 mg 00:00: n mouth tablet 00 every 8 hours. minoxidil Yes Essential 1.25mg Take 0.5 Warner (LONITEN) 1-27 hypertensio tablets by [facility] 2.5 mg 00:00: n mouth tablet 00 every 8 hours. minoxidil Yes Essential 1.25mg Take 0.5 [facility] (LONITEN) 1-27 hypertensio tablets by [facility] 2.5 mg 00:00: n mouth tablet 00 every 8 hours. minoxidil 2017 Yes Essential 1.25mg Take 0.5 Warner (LONITEN) [...] 1 Warner chloride 1-23 hypertensio tablet by [employer] (KLOR-CON 00:00: n, benign mouth M10) 10 mEq 00 daily Take extended only with release lasix. tablet furosemide Yes CKD 40mg Q.5D Take 1 Harri s (LASIX) 40 1-23 (chronic tablet by [facility] mg tablet 00:00: kidney mouth 2 00 disease), times stage 3 daily. (moderate) potassium Yes Essential 10meq QD Take 1 Awrner chloride 1-23 hypertensio tablet by [employer] (KLOR-CON 00:00: n, benign mouth M10) 10 mEq 00 daily Take extended only with release lasix. tablet furosemide 2016- Yes CKD 40mg Q.5D Take 1 Harri s (LASIX) 40 1-23 (chronic tablet by [facility] mg tablet 00:00: kidney mouth 2 00 disease), times stage 3 daily. (moderate) potassium 2016- Yes Essential 10meq QD Take 1 Warner chloride 1-23 hypertensio tablet by [employer] (KLOR-CON 00:00: n, benign mouth M10) 10 mEq 00 daily Take extended only with release lasix. tablet furosemide 0 Yes CKD 40mg Q.5D Take 1 Harri s (LASIX) 40 1-23 (chronic tablet by [facility] mg tablet 00:00: kidney mouth 2 00 disease), times stage 3 daily. (moderate) potassium 2017- Yes Essential 10meq QD Take 1 Warner [...] disease), times stage 3 daily. (moderate) potassium 2016-0 Yes Essential 10meq QD Take 1 Warner chloride 1-23 hypertensio tablet by [employer] (KLOR-CON 00:00: n, benign mouth M10) 10 mEq 00 daily Take extended only with release lasix. tablet furosemide 20170 Yes CKD 40mg Q.5D Take 1 Harri s (LASIX) 40 1-23 (chronic tablet by [facility] mg tablet 00:00: kidney mouth 2 00 disease), times stage 3 daily. (moderate) potassium 2017-0 Yes Essential 10meq QD Take 1 Warner chloride 1-23 hypertensio tablet by [employer] (KLOR-CON 00:00: n, benign mouth M10) 10 mEq 00 daily Take extended only with release lasix. tablet furosemide 2017-0 Yes CKD 40mg Q.5D Take 1 Harri s (LASIX) 40 1-23 (chronic tablet by [facility] mg tablet 00:00: kidney mouth 2 00 disease), times stage 3 daily. (moderate) potassium 2017-0 Yes Essential 10meq QD Take 1 Warner chloride 1-23 hypertensio tablet by [employer] (KLOR-CON 00:00: n, benign mouth M10) 10 mEq 00 daily Take extended only with release lasix. tablet furosemide 2017-0 Yes CKD 40mg Q.5D Take 1 Harri s (LASIX) 40 1-23 (chronic tablet by [facility] mg tablet 00:00: kidney mouth 2 00 disease), times stage 3 daily. (moderate) furosemide 2017-0 Yes CKD 40mg Q.5D Take 1 Harri s (LASIX) 40 1-23 (chronic tablet by [facility] mg tablet 00:00: kidney mouth 2 00 disease), times stage 3 daily. (moderate) potassium 2017-0 Yes Essential 10meq QD Take 1 Warner chloride 1-23 hypertensio tablet by [facility] (KLOR-CON 00:00: n, benign mouth M10) 10 mEq 00 daily Take extended only with release lasix. tablet potassium 2017-0 Yes Essential 10meq QD Take 1 Warner chloride 1-23 hypertensio tablet by [facility] (KLOR-CON 00:00: n, benign mouth M10) 10 mEq 00 daily Take extended only with release lasix. tablet furosemide 2016- Yes CKD 40mg Q.5D Take 1 Harri s (LASIX) 40 1-23 (chronic tablet by [facility] mg tablet 00:00: kidney mouth 2 00 disease), times stage 3 daily. (moderate) potassium 2016- Yes Essential 10meq QD Take 1 Warner chloride 1-23 hypertensio tablet by [facility] (KLOR-CON 00:00: n, benign mouth M10) 10 mEq 00 daily Take extended only with release lasix. tablet furosemide 2016- Yes CKD 40mg Q.5D Take 1 Harri s (LASIX) 40 1-23 (chronic tablet by [facility] mg tablet 00:00: kidney mouth 2 00 disease), times stage 3 daily. (moderate) potassium 2016-0 Yes Essential 10meq QD Take 1 Warner chloride 1-23 hypertensio tablet by [facility] (KLOR-CON 00:00: n, benign mouth M10) 10 mEq 00 daily Take extended only with release lasix. tablet cloNIDine 2015-03 Yes Essential .1mg Take 1 H arris HCl 0-28 hypertensio tablet by [facility] (CATAPRES) 00:00: n, benign mouth 3 0.1 mg 00 times tablet daily. cloNIDine 2015-03 Yes Essential .1mg Take 1 H arris HCl 0-28 hypertensio tablet by [facility] (CATAPRES) 00:00: n, benign mouth 3 0.1 mg 00 times tablet daily. cloNIDine 2015-03 Yes Essential .1mg Take 1 H arris HCl 0-28 hypertensio tablet by [facility] (CATAPRES) 00:00: n, benign mouth 3 0.1 mg 00 times tablet daily. cloNIDine 2015-03 Yes Essential .1mg Take 1 H arris HCl 0-28 hypertensio tablet by [facility] (CATAPRES) 00:00: n, benign mouth 3 0.1 mg 00 times tablet daily. cloNIDine 2015-03 Yes Essential .1mg Take 1 H arris HCl 0-28 hypertensio tablet by [facility] (CATAPRES) 00:00: n, benign mouth 3 0.1 mg 00 times tablet daily. cloNIDine 2015-03 Yes Essential .1mg Take 1 H arris HCl 0-28 hypertensio tablet by [facility] (CATAPRES) 00:00: n, benign mouth 3 0.1 mg 00 times tablet daily. cloNIDine 2015-03 Yes Essential .1mg Take 1 H arris HCl 0-28 hypertensio tablet by [facility] (CATAPRES) 00:00: n, benign mouth 3 0.1 mg 00 times tablet daily. cloNIDine 2015-03 Yes Essential .1mg Take 1 H arris HCl 0-28 hypertensio tablet by [facility] (CATAPRES) 00:00: n, benign mouth 3 0.1 mg 00 times tablet daily. cloNIDine 2015-03 Yes Essential .1mg Take 1 H arris HCl 0-28 hypertensio tablet by [facility] (CATAPRES) 00:00: n, benign mouth 3 0.1 mg 00 times tablet daily. cloNIDine 2015-03 Yes Essential .1mg Take 1 H arris HCl 0-28 hypertensio tablet by [facility] (CATAPRES) 00:00: n, benign mouth 3 0.1 mg 00 times tablet daily. cloNIDine 2015-03 Yes Essential .1mg Take 1 H arris HCl 0-28 hypertensio tablet by [facility] (CATAPRES) 00:00: n, benign mouth 3 0.1 mg 00 times tablet daily. cloNIDine 2015-03 Yes Essential .1mg Take 1 H arris HCl 0-28 hypertensio tablet by [facility] (CATAPRES) 00:00: n, benign mouth 3 0.1 mg 00 times tablet daily. cloNIDine Yes Essential .3mg Take 1 H arris HCl 9-19 hypertensio tablet by [facility] (CATAPRES) 00:00: n, benign mouth 3 0.3 mg 00 times tablet daily Increased dose. cloNIDine Yes Essential .3mg Take 1 H arris HCl 9-19 hypertensio tablet by [facility] (CATAPRES) 00:00: n, benign mouth 3 0.3 mg 00 times tablet daily Increased dose. cloNIDine 2016-0 Yes Essential .3mg Take 1 H arris HCl 9-19 hypertensio tablet by [facility] (CATAPRES) 00:00: n, benign mouth 3 0.3 mg 00 times tablet daily Increased dose. cloNIDine 2016-0 Yes Essential .3mg Take 1 H arris HCl 9-19 hypertensio tablet by [facility] (CATAPRES) 00:00: n, benign mouth 3 0.3 mg 00 times tablet daily Increased dose. cloNIDine 2016-0 Yes Essential .3mg Take 1 H arris HCl 9-19 hypertensio tablet by [facility] (CATAPRES) 00:00: n, benign mouth 3 0.3 mg 00 times tablet daily Increased dose. cloNIDine 2016-0 Yes Essential .3mg Take 1 H arris HCl 9-19 hypertensio tablet by [facility] (CATAPRES) 00:00: n, benign mouth 3 0.3 mg 00 times tablet daily Increased dose. cloNIDine 2016-0 Yes Essential .3mg Take 1 H arris HCl 9-19 hypertensio tablet by [facility] (CATAPRES) 00:00: n, benign mouth 3 0.3 mg 00 times tablet daily Increased dose. cloNIDine 2016-0 Yes Essential .3mg Take 1 H arris HCl 9-19 hypertensio tablet by [facility] (CATAPRES) 00:00: n, benign mouth 3 0.3 mg 00 times tablet daily Increased dose. cloNIDine 2016-0 Yes Essential .3mg Take 1 H arris HCl 9-19 hypertensio tablet by [facility] (CATAPRES) 00:00: n, benign mouth 3 0.3 mg 00 times tablet daily Increased dose. cloNIDine 2016-0 Yes Essential .3mg Take 1 H arris HCl 9-19 hypertensio tablet by [facility] (CATAPRES) 00:00: n, benign mouth 3 0.3 mg 00 times tablet daily Increased dose. cloNIDine 2016-0 Yes Essential .3mg Take 1 H arris HCl 9-19 hypertensio tablet by [facility] (CATAPRES) 00:00: n, benign mouth 3 0.3 mg 00 times tablet daily Increased dose. cloNIDine 2016-0 Yes Essential .3mg Take 1 H arris HCl 9-19 hypertensio tablet by [facility] (CATAPRES) 00:00: n, benign mouth 3 0.3 mg 00 times tablet daily Increased dose. ergocalcife 2015-0 Yes Vitamin D [id number] Take 1 Warner rol 3-31 deficiency capsule by [facility] (VITAMIN 00:00: mouth D2) 50,000 00 weekly. unit capsule NIFEdipine 2015-0 Yes Essential 90mg QD Take 1 [facility] (PROCARDIA 3-31 hypertensio tablet by [facility]) 90 mg 00:00: n, benign mouth extended 00 daily release Discontinu tablet e Amlodipine . ergocalcife 2015-0 Yes Vitamin D [id number] Take 1 Warner rol 3-31 deficiency capsule by [facility] (VITAMIN 00:00: mouth D2) 50,000 00 weekly. unit capsule NIFEdipine 2015-0 Yes Essential 90mg QD Take 1 [facility] (PROCARDIA 3-31 hypertensio tablet by [facility]) 90 mg 00:00: n, benign mouth extended 00 daily release Discontinu tablet e Amlodipine . ergocalcife 2015-0 Yes Vitamin D 64936P Take 1 Warner rol 3-31 deficiency capsule by [facility] (VITAMIN 00:00: mouth D2) 50,000 00 weekly. unit capsule NIFEdipine 2015-0 Yes Essential 90mg QD Take 1 [facility] (PROCARDIA 3-31 hypertensio tablet by [facility]) 90 mg 00:00: n, benign mouth extended 00 daily release Discontinu tablet e Amlodipine . ergocalcife 2015-0 Yes Vitamin D 18850S Take 1 Warner rol 3-31 deficiency capsule by [facility] (VITAMIN 00:00: mouth D2) 50,000 00 weekly. unit capsule NIFEdipine 2015-0 Yes Essential 90mg QD Take 1 [facility] (PROCARDIA 3-31 hypertensio tablet by [facility]) 90 mg 00:00: n, benign mouth extended 00 daily release Discontinu tablet e Amlodipine . ergocalcife 2015-0 Yes Vitamin D 95036V Take 1 Warner rol 3-31 deficiency capsule by [facility] (VITAMIN 00:00: mouth D2) 50,000 00 weekly. unit capsule NIFEdipine 2015-0 Yes Essential 90mg QD Take 1 [facility] (PROCARDIA 3-31 hypertensio tablet by [facility]) 90 mg 00:00: n, benign mouth extended 00 daily release Discontinu tablet e Amlodipine . ergocalcife 2015-0 Yes Vitamin D [id number] Take 1 Warner rol 3-31 deficiency capsule by [facility] (VITAMIN 00:00: mouth D2) 50,000 00 weekly. unit capsule NIFEdipine 2015-0 Yes Essential 90mg QD Take 1 [facility] (PROCARDIA 3-31 hypertensio tablet by [facility]) 90 mg 00:00: n, benign mouth extended 00 daily release Discontinu tablet e Amlodipine . ergocalcife 2015-0 Yes Vitamin D 95642H Take 1 Warner rol 3-31 deficiency capsule by [facility] (VITAMIN 00:00: mouth D2) 50,000 00 weekly. unit capsule NIFEdipine 2015-0 Yes Essential 90mg QD Take 1 [facility] (PROCARDIA 3-31 hypertensio tablet by [facility]) 90 mg 00:00: n, benign mouth extended 00 daily release Discontinu tablet e Amlodipine . ergocalcife 2015-0 Yes Vitamin D [id number] Take 1 Warner rol 3-31 deficiency capsule by [facility] (VITAMIN 00:00: mouth D2) 50,000 00 weekly. unit capsule NIFEdipine 0 Yes Essential 90mg QD Take 1 [facility] (PROCARDIA 3-31 hypertensio tablet by [facility]) 90 mg 00:00: n, benign mouth extended 00 daily release Discontinu tablet e Amlodipine . ergocalcife 2015-0 Yes Vitamin D [id number] Take 1 Warner rol 3-31 deficiency capsule by [facility] (VITAMIN 00:00: mouth D2) 50,000 00 weekly. unit capsule NIFEdipine 2015-0 Yes Essential 90mg QD Take 1 [facility] (PROCARDIA 3-31 hypertensio tablet by [facility]) 90 mg 00:00: n, benign mouth extended 00 daily release Discontinu tablet e Amlodipine . ergocalcife 2015-0 Yes Vitamin D 06851L Take 1 Warner rol 3-31 deficiency capsule by [facility] (VITAMIN 00:00: mouth D2) 50,000 00 weekly. unit capsule NIFEdipine 2015-0 Yes Essential 90mg QD Take 1 [facility] (PROCARDIA 3-31 hypertensio tablet by [facility]) 90 mg 00:00: n, benign mouth extended 00 daily release Discontinu tablet e Amlodipine . ergocalcife 2015-0 Yes Vitamin D [id number] Take 1 Warner rol 3-31 deficiency capsule by [facility] (VITAMIN 00:00: mouth D2) 50,000 00 weekly. unit capsule NIFEdipine Yes Essential 90mg QD Take 1 [facility] (PROCARDIA 3-31 hypertensio tablet by [facility]) 90 mg 00:00: n, benign mouth extended 00 daily release Discontinu tablet e Amlodipine . ergocalcife Yes Vitamin D 60404J Take 1 Warner rol 3-31 deficiency capsule by [facility] (VITAMIN 00:00: mouth D2) 50,000 00 [...] mg tablet 00:00: rhinitis mouth 00 daily. sevelamer sevelamer No sevelamer [facility] carbonate carbonate [...] HEMODIALYSI AFTER S ON MWF S ON [facility] HEMODIALYS IS ON [facility] levetiracet levetiracet No 1000mg Q1D levetirace [...] Yes Eric 1 capsule Common HCl HCl [facility] Ferrous Ferrous Yes Eric 1 tablet Co mmon Sulfate Sulfate [facility] Vitamin C Vitamin C Yes Eric as Co mmon Rodriguez directed [facility] Pravastatin Pravastatin Yes Eric 1 tablet Common Sodium Sodium Rodriguez [facility] Sevelamer Sevelamer Yes Eric 1 packet Common Carbonate Carbonate Rodriguez mixed with [facility] 30 ml of - [facility] water with [facility] Vitamin B Vitamin B Yes Eric as Co mmon Complex Complex Rodriguez directed Sp[facility] t [facility] Doxazosin Doxazosin Yes Eric 1 tablet Common Mesylate Mesylate Rodriguez [facility] Eliquis Eliquis Yes Eric TAKE 1 Comm on Rodriguez TABLET BY [facility] MOUTH - [facility] TWICE [facility] DAILY FOR [facility] NIFEdipine NIFEdipine Yes Eric TAKE 1 Common ER ER Rodriguez TABLET BY [facility] MOU[facility] - [facility] EVERY [address] [facility] HOURS [facility] Metformin Metformin Yes Eric 1 tablet Common HCl HCl Rodriguez with a [facility] meal [facility] Vitamin D-3 Vitamin D-3 Yes Eric as Common Rordiguez directed [facility] Melatonin Melatonin Yes Eric 1 capsule Common Rodriguez at bedtime [facility] as needed - [facility] with food [facility] Metformin Metformin Yes Eric 1 tablet Common HCl HCl Rodriguez with a Spirit meal [facility] Atenolol Atenolol Yes Eric 1 tablet Common Rodriguez [facility] Sevelamer Sevelamer No TID Sevelamer Carbonate Carbonate [...] A DAY HEMODIALYSI HEMODIALYSI AFTER S ON [facility] S ON [facility] HEMODIALYS IS ON [facility] levetiracet levetiracet No 1000mg Q1D levetirace [...] DAILY ergocalcife ergocalcife No ergocalcif [facility] rol [facility] qian Medical (vitamin (vitamin (vitamin D2) 1,250 [...] A DAY HEMODIALYSI HEMODIALYSI AFTER S ON [facility] S ON [facility] HEMODIALYS IS ON [facility] levetiracet levetiracet No 1000mg Q1D levetirace [...] MWF S ON MWF HEMODIALYS IS ON [facility] levetiracet levetiracet No 1000mg Q1D levetirace [...] DAILY ergocalcife ergocalcife No ergocalcif [facility] rol [facility] qian Medical (vitamin (vitamin (vitamin D2) 1,250 [...] MWF S ON MWF HEMODIALYS IS ON F levetiracet levetiracet No 1000mg Q1D levetirace [facility] [...] days. 30 days. route for 30 days. Immunizations Ordered Immunization Filled Immunization Date Status Commen ts Source Name Name Influenza, seasonal, 2022-01-30 Completed [facility] injectable 00:00:00 influenza, seasonal, influenza, seasonal, 2016-01-21 [...] free preservative free Influenza Vaccine 2016-01-21 Completed [facility] 00:00:00 Influenza Vaccine 2016-01-21 Completed [facility] 00:00:00 Influenza Vaccine 2016-01-21 Completed [facility] 00:00:00 Influenza Vaccine 2016-01-21 Completed [facility] 00:00:00 Influenza Vaccine 2016-01-21 Completed [facility] 00:00:00 Influenza Vaccine 2016-01-21 Completed [facility] 00:00:00 Influenza Vaccine 2016-01-21 Completed [facility] 00:00:00 Influenza Vaccine 2016-01-21 Completed [facility] 00:00:00 Influenza Vaccine 2016-01-21 Completed [facility] 00:00:00 Influenza Vaccine 2016-01-21 Completed [facility] 00:00:00 Influenza Vaccine 2016-01-21 Completed [facility] 00:00:00 Influenza Pre-Epic 2016-01-[address] [facility] 00:[facility]:00 Medical [facility] Influenza Vaccine 2016-01-21 Completed [facility] 00:00:00 Influenza Pre-Epic 2016-01-[address] [facility] 00:00:00 [facility] Influenza Three-TIV 2016-01-21 [facility] 5[facility] 00:[facility]:00 [facility] Influenza 2016-01-21 Completed [facility] (Preservative Free) 00:00:00 of Me dicine Influenza 2016-01-21 Completed [facility] (Preservative Free) 00:00:00 [facility] Influenza 2016-01-21 Completed [facility] (Preservative Free) 00:00:00 of Me dicine influenza, [...] PCV 13 00:00:00 Influenza Vaccine 2015-01-14 Completed [facility] 00:00:00 Pneumococcal 2015-01-14 Completed [facility] 13-valent conj 0.5 00:00:00 mL injection Influenza Vaccine 2015-01-14 Completed [facility] 00:00:00 Pneumococcal 2015-01-14 Completed [facility] 13-valent conj 0.5 00:00:00 mL injection Influenza Vaccine 2015-01-14 Completed [facility] 00:00:00 Pneumococcal 2015-01-14 Completed [facility] 13-valent conj 0.5 00:00:00 mL injection Influenza Vaccine 2015-01-14 Completed [facility] 00:00:00 Pneumococcal 2015-01-14 Completed [facility] 13-valent conj 0.5 00:00:00 mL injection Influenza Vaccine 2015-01-14 Completed [facility] 00:00:00 Pneumococcal 2015-01-14 Completed [facility] 13-valent conj 0.5 00:00:00 mL injection Influenza Vaccine 2015-01-14 Completed [facility] 00:00:00 Pneumococcal 2015-01-14 Completed [facility] 13-valent conj 0.5 00:00:00 mL injection Influenza Vaccine 2015-01-14 Completed [facility] 00:00:00 Pneumococcal 2015-01-14 Completed [facility] 13-valent conj 0.5 00:00:00 mL injection Influenza Vaccine 2015-01-14 Completed [facility] 00:00:00 Pneumococcal 2015-01-14 Completed [facility] 13-valent conj 0.5 00:00:00 mL injection Influenza Vaccine 2015-01-14 Completed [facility] 00:00:00 Pneumococcal 2015-01-14 Completed [facility] 13-valent conj 0.5 00:00:00 mL injection Influenza Vaccine 2015-01-14 Completed [facility] 00:00:00 Pneumococcal 2015-01-14 Completed [facility] 13-valent conj 0.5 00:00:00 mL injection Influenza Vaccine 2015-01-14 Completed [facility] 00:00:00 Pneumococcal 2015-01-14 Completed [facility] h 13-valent conj 0.5 00:00:00 mL injection Influenza Pre-Epic 2015-01-[address] [facility] 00:00:00 [facility] Pneumococcal 2015-01-[address] [facility] Conjugate (Prevnar) 00:00:00 [facility] 13-Valent Influenza Three-TIV 2015-01-14 Com[facility] PF 5+ YR 00:00:00 [facility] Pneumococcal 2015-01-[address] [facility] Conjugate (Prevnar) 00:00:00 [facility] 13-Valent Influenza Pre-Epic 2015-01-[address] [facility] 00:00:00 [facility] Pneumococcal 2015-01-[address] [facility] Conjugate (Prevnar) 00:00:00 [facility] 13-Valent Influenza Three-TIV 2015-01-14 Completed [facility] PF 5+ YR 00:00:00 [facility] Pneumococcal 2015-01-[address] [facility] Conjugate (Prevnar) 00:00:00 [facility] 13-Valent Influenza Pre-Epic 2015-01-[address] [facility] 00:00:00 [facility] Pneumococcal 2015-01-[address] [facility] Conjugate (Prevnar) 00:00:00 [facility] 13-Valent Influenza Three-TIV 2015-01-14 Completed [facility] PF 5+ YR 00:00:00 [facility] Pneumococcal 2015-01-[address] [facility] Conjugate (Prevnar) 00:00:00 [facility] 13-Valent Influenza Vaccine 2015-01-14 Completed [facility] 00:00:00 Pneumococcal 2015-01-14 Completed [facility] 13-valent conj 0.5 00:00:00 mL injection Influenza Pre-Epic 2015-01-[address] [facility] 00[facility]00:00 [facility] Pneumococcal 2015-01-[address] [facility] Conjugate (Prevnar) 00:00:00 [facility] 13-Valent Influenza Three-TIV 2015-01-14 Completed [facility] PF 5+ YR 00:00:00 [facility] Pneumococcal 2015-01-[address] [facility] Conjugate (Prevnar) 00:00:00 [facility] 13-Valent Influenza 2015-01-14 Completed [facility] (Preservative Free) 00:00:00 [facility]icine Pneumococcal 2015-01-14 Completed [facility] ge 13-valent Conjugate 00:00:00 [facility] Me dicine Vaccine Influenza 2015-01-14 Completed [facility] (Preservative Free) 00:00:00 [facility] Pneumococcal 2015-01-14 Completed [facility] ge 13-valent Conjugate 00:00:00 of Me dicine Vaccine Influenza 2015-01-14 Completed [facility] (Preservative Free) 00:00:00 [facility] Pneumococcal 2015-01-14 Completed [facility] ge 13-valent Conjugate 00:00:00 of Me [...] free preservative free Influenza Vaccine 2014-02-09 Completed [facility] 00:00:00 Influenza Vaccine 2014-02-09 Completed [facility] 00:00:00 Influenza Vaccine 2014-02-09 Completed [facility] 00:00:00 Influenza Vaccine 2014-02-09 Completed [facility] 00:00:00 Influenza Vaccine 2014-02-09 Completed [facility] 00:00:00 Influenza Vaccine 2014-02-09 Completed [facility] 00:00:00 Influenza Vaccine 2014-02-09 Completed [facility] 00:00:00 Influenza Vaccine 2014-02-09 Completed [facility] 00:00:00 Influenza Vaccine 2014-02-09 Completed [facility] 00:00:00 Influenza Vaccine 2014-02-09 Completed [facility] 00:00:00 Influenza Vaccine 2014-02-09 Completed [facility] 00:00:00 Influenza Pre-Epic 2014-02-[address] [facility] 00[facility]:00 [facility] Influenza Three-TIV 2014-02-09 Com[facility] 00:00:00 [facility] Influenza Pre-Epic 2014-02-[address] [facility] 00:00:00 [facility] Influenza Three-TIV 2014-02-09 Completed [facility]+ [facility]R 00:00:00 [facility] Center Influenza Pre-Epic 2014-02-[address] [facility] 00:00:00 [facility] Center Influenza Three-TIV 2014-02-09 Com[facility]+ [facility] 00:00:00 [facility] Center Influenza Vaccine 2014-02-09 Completed [facility] 00:00:00 Influenza Pre-Epic 2014-02-[address] [facility] 00:00:00 [facility] Center Influenza Three-TIV 2014-02-09 Com[facility] PF 5+ YR 00:00:00 [facility] Influenza 2014-02-09 Completed [facility] (Preservative Free) 00:00:00 of Ar art Influenza 2014-02-09 Completed [facility] (Preservative Free) 00:00:00 [facility] Influenza 2014-02-09 Completed [facility] (Preservative Free) 00:00:00 of Me dicine influenza, [...] free preservative free Influenza Vaccine 2013-01-20 Completed [employer] 00:00:00 Influenza Vaccine 2013-01-20 Completed [facility] [employer] 00:00:00 Influenza Vaccine 2013-01-20 Completed [facility] 00:00:00 Influenza Vaccine 2013-01-20 Completed [facility] 00:00:00 Influenza Vaccine 2013-01-20 Completed [facility] 00:00:00 Influenza Vaccine 2013-01-20 Completed [facility] 00:00:00 Influenza Vaccine 2013-01-20 Completed [facility] 00:00:00 Influenza Vaccine 2013-01-20 Completed [facility] 00:00:00 Influenza Vaccine 2013-01-20 Completed [facility] 00:00:00 Influenza Vaccine 2013-01-20 Completed [facility] 00:00:00 Influenza Vaccine 2013-01-20 Completed [facility] 00:00:00 Influenza Pre-Epic 2013-01-[address] [facility] 00:00:00 [facility] Influenza Three-TIV 2013-01-20 Com[facility] Influenza Pre-Epic 2013-01-[address] [facility] 00:00:00 [facility] Center Influenza Three-TIV 2013-01-20 [facility]+ [facility] 00:00:00 [facility] Center Influenza Pre-Epic 2013-01-[address] [facility] 00:00:00 [facility] Center Influenza Three-TIV 2013-01-20 Com[facility]+ [facility]R 00:00:00 [facility] Center Influenza Vaccine 2013-01-20 Completed [facility] 00:00:00 Influenza Pre-Epic 2013-01-[address] [facility] 00:00:00 [facility] Center Influenza Three-TIV 2013-01-20 [facility] 00:00:00 [facility] Center Influenza 2013-01-20 Completed [facility] (Preservative Free) 00:00:00 of Me dicine Influenza 2013-01-20 Completed [facility] (Preservative Free) 00:00:00 of Me dicine Influenza 2013-01-20 Completed [facility] (Preservative Free) 00:00:00 of Me dicine influenza, [...] free preservative free Influenza Vaccine 2010-12-16 Completed [facility] 00:00:00 Influenza Vaccine 2010-12-16 Completed [facility] 00:00:00 Influenza Vaccine 2010-12-16 Completed [facility] 00:00:00 Influenza Vaccine 2010-12-16 Completed [facility] 00:00:00 Influenza Vaccine 2010-12-16 Completed [facility] 00:00:00 Influenza Vaccine 2010-12-16 Completed [facility] 00:00:00 Influenza Vaccine 2010-12-16 Completed [facility] 00:00:00 Influenza Vaccine 2010-12-16 Completed [facility] 00:00:00 Influenza Vaccine 2010-12-16 Completed [facility] 00:00:00 Influenza Vaccine 2010-12-16 Completed [facility] 00:00:00 Influenza Vaccine 2010-12-16 Completed [facility] 00:00:00 Influenza Pre-Epic 2010-12-[address] [facility] 00:00:00 [facility] Influenza Three-TIV 2010-12-16 Com[facility] 5+ YR 00:00:00 [facility] Influenza Pre-Epic 2010-12-[address] [facility] 00:00:00 [facility] Influenza Three-TIV 2010-12-16 Com[facility] 00:00:00 [facility] Center Influenza Pre-Epic 2010-12-[address] [facility] 00:00:00 [facility] Influenza Three-TIV 2010-12-16 Com[facility] 5+ YR 00:00:00 [facility] Influenza Vaccine 2010-12-16 Completed [facility] 00:00:00 Influenza Pre-Epic 2010-12-[address] [facility] 00:00:00 [facility] Influenza Three-TIV 2010-12-16 Com[facility] 5+ YR 00:00:00 [facility] Influenza 2010-12-16 Completed [facility] (Preservative Free) 00:00:00 [facility] Influenza 2010-12-16 Completed [facility] (Preservative Free) 00:00:00 of Me dicine Influenza 2010-12-16 Completed [facility] (Preservative Free) 00:00:00 of Me dicine influenza, [...] [facility] 00:00:00 Influenza Vaccine 2010-02-28 Completed [facility] 00:00:00 Influenza Vaccine 2010-02-28 Completed [facility] 00:00:00 Influenza Vaccine 2010-02-28 Completed [facility] 00:00:00 Influenza Vaccine 2010-02-28 Completed [facility] 00:00:00 Influenza Vaccine 2010-02-28 Completed [facility] 00:00:00 Influenza Vaccine 2010-02-28 Completed [facility] 00:00:00 Influenza Vaccine 2010-02-28 Completed [facility] 00:00:00 Influenza Vaccine 2010-02-28 Completed [facility] 00:00:00 Influenza Pre-Epic 2010-02-[address] [facility] 00:00:00 [facility] Influenza Three-TIV 2010-02-28 Com[facility]+ [facility] 00:00:00 [facility] Center Influenza Pre-Epic 2010-02-[address] [facility] 00:00:00 [facility] Influenza Three-TIV 2010-02-28 Com[facility] 5+ [facility]R 00:00:00 [facility] Center Influenza Pre-Epic 2010-02-[address] [facility] 00:00:00 [facility] Influenza Three-TIV 2010-02-28 Com[facility] PF 5+ YR 00:00:00 [facility] Influenza Vaccine 2010-02-28 Completed [facility] 00:00:00 Influenza Pre-Epic 2010-02-[address] [facility] 00:00:00 [facility] Influenza Three-TIV 2010-02-28 Com[facility]+ [facility]R 00:00:00 [facility] Center Influenza 2010-02-28 Completed [facility] (Preservative Free) 00:00:00 of [facility] Influenza 2010-02-28 Completed [facility] (Preservative Free) 00:00:00 [facility] Influenza 2010-02-28 Completed [facility] (Preservative Free) 00:00:00 [facility] Vital Signs Vital Name Observation Time Observation Value Comments Source WEIGHT 2020-08-10 17:12:00 80.1 kg WEIGHT 2020-08-10 14:11:00 82.5 kg HEIGHT 2020-08-06 23:13:00 154.9 cm WEIGHT 2020-08-06 23:13:00 79.379 kg Body weight 2022-01-31 16:37:[facility] 2022-01-31 16:37:00 31.18 [facility] saturation in 2022-01-31 16:37:00 98 /min [facility] Arterial blood by Pulse oximetry Systolic blood 2022-01-31 16:37:00 132 mm[Hg[facility] Diastolic blood 2022-01-31 16:37:00 84 mm[Hg] [facility] Heart rate 2022-01-31 16:37:00 75 /min [facility] Body temperature 2022-01-31 16:37:00 35.39 [facility] Respiratory rate 2022-01-31 16:37:00 18 /[facility] Diastolic 2021-11-01 00:00:00 86 mm[Hg] [facility] Height 2021-11-01 00:00:00 61 [in_i] [facility] BMI (Body Mass Index) 2021-11-01 00:00:00 29.5 kg/m2 [facility] BP Systolic 2021-11-01 00:00:00 137 mm[Hg] [facility] Body Weight 2021-11-01 00:00:00 2496 [oz_av] [facility] BP Diastolic 2021-10-25 00:00:00 78 mm[Hg] [facility] Height 2021-10-25 00:00:00 61 [in_i] [facility] BMI (Body Mass Index) 2021-10-25 00:00:00 29.5 kg/m2 [facility] BP Systolic 2021-10-25 00:00:00 136 mm[Hg] [facility] Body Weight 2021-10-25 00:00:00 2496 [oz_av] [facility] BP Diastolic 2021-10-20 00:00:00 58 mm[Hg] [facility] Height 2021-10-20 00:00:00 61 [in_i] [facility] BMI (Body Mass Index) 2021-10-20 00:00:00 29.5 kg/m2 [facility] BP Systolic 2021-10-20 00:00:00 118 mm[Hg] [facility] Body Weight 2021-10-20 00:00:00 2496 [oz_av] [facility] BP Diastolic 2021-10-18 00:00:00 70 mm[Hg] [facility] Height 2021-10-18 00:00:00 61 [in_i] [facility] BMI (Body Mass Index) 2021-10-18 00:00:00 29.5 kg/m2 [facility] BP Systolic 2021-10-18 00:00:00 125 mm[Hg] [facility] Body Weight 2021-10-18 00:00:00 2496 [oz_av] [facility] BP Diastolic 2021-10-14 00:00:00 66 mm[Hg] [facility] Height 2021-10-14 00:00:00 61 [in_i] [facility] BMI (Body Mass Index) 2021-10-14 00:00:00 29.5 kg/m2 [facility] BP Systolic 2021-10-14 00:00:00 119 mm[Hg] [facility] Body Weight 2021-10-14 00:00:00 2496 [oz_av] [facility] BP Diastolic 2021-10-11 00:00:00 76 mm[Hg] [facility] Height 2021-10-11 00:00:00 61 [in_i] [facility] BMI (Body Mass Index) 2021-10-11 00:00:00 29.5 kg/m2 [facility] BP Systolic 2021-10-11 00:00:00 132 mm[Hg] [facility] Body Weight 2021-10-11 00:00:00 2496 [oz_av] [facility] BP Diastolic 2021-10-04 00:00:00 72 mm[Hg] [facility] Height 2021-10-04 00:00:00 61 [in_i] [facility] BMI (Body Mass Index) 2021-10-04 00:00:00 33.5 kg/m2 [facility] BP Systolic 2021-10-04 00:00:00 136 mm[Hg] [...] of Medicine BMI 2020-01-22 15:42:00 32.88 kg/m2 [facility] Body height 2020-01-22 15:42:00 154.9 cm [facility] Body weight 2020-01-22 15:42:00 78.926 kg [facility] 2020-01-22 15:42:00 32.88 kg/m2 [facility] Body height 2019-12-25 15:30:00 154.9 cm [facility] Body weight 2019-12-25 15:30:00 78.926 kg [facility] 2019-12-25 15:30:00 32.88 kg/m2 [facility] Body height 2019-12-25 15:30:00 154.9 cm [facility] Body weight 2019-12-25 15:30:00 78.926 kg [facility] 2019-12-25 15:30:00 32.88 kg/m2 [facility] Body height 2019-11-27 14:00:00 154.9 cm [facility] Body weight 2019-11-27 14:00:00 78.926 kg [facility] 2019-11-27 14:00:00 32.88 kg/m2 [facility] Body height 2019-11-27 14:00:00 154.9 cm [facility] Body weight 2019-11-27 14:00:00 78.926 kg [facility] 2019-11-27 14:00:00 32.88 kg/m2 [facility] Body height 2019-11-13 21:22:00 154.9 cm [facility] Body weight 2019-11-13 21:22:00 78.926 kg [facility] BMI 2019-11-13 21:22:00 32.88 kg/m2 [facility] 2019-11-13 21:22:00 154.9 cm [facility] 2019-11-13 21:22:00 78.926 kg [facility] BMI 2019-11-13 21:22:00 32.88 kg/m2 [facility] HEIGHT 2019-11-04 00:00:00 156 cm WEIGHT 2019-11-04 00:00:00 85.004 kg Systolic blood 2021-09-24 12:03:00 140 mm[Hg] [facility] Diastolic blood 2021-09-24 12:03:00 80 mm[Hg] [facility] Heart rate 2021-09-24 12:03:00 111 /min [facility] Body temperature 2021-09-24 12:03:00 37.11 [facility] Respiratory rate 2021-09-24 12:03:00 18 /min [facility] Oxygen saturation in 2021-09-24 12:03:00 99 /min [facility] Arterial blood by Medical Ce nter Pulse oximetry Body weight 2021-09-24 11:00:00 80.5 kg [facility] BMI 2021-09-24 11:00:00 33.55 kg/m2 [facility] Body height 2021-08-30 19:00:00 154.9 cm [facility] Heart rate 2021-08-25 15:00:00 108 /min [facility] Respiratory rate 2021-08-25 15:00:00 20 /min [facility] Oxygen saturation in 2021-08-25 13:30:00 100 /min [facility] Arterial blood by Medical Ce nter Pulse oximetry Systolic blood 2021-08-25 12:21:00 185 mm[Hg] [facility] Diastolic blood 2021-08-25 12:21:00 77 mm[Hg] [facility] Body temperature 2021-08-25 11:00:00 36.78 [facility] Respiratory rate 2021-08-25 08:29:00 19 /min [facility] Heart rate 2021-08-25 08:27:00 98 /min [facility] Oxygen saturation in 2021-08-25 08:27:00 100 /min [facility] Arterial blood by Medical Ce nter Pulse oximetry Body temperature 2021-08-25 07:30:00 37.28 [facility] Body weight 2021-08-25 04:00:00 75.6 kg [facility] BMI 2021-08-25 04:00:00 31.49 kg/m2 [facility] Systolic blood 2021-08-24 11:15:00 146 mm[Hg] [facility] Diastolic blood 2021-08-24 11:15:00 62 mm[Hg] [facility] Body height 2021-08-11 01:00:00 154.9 cm [facility] Procedures Procedure Date / Time Performing Clinician Source Performed [id number] 2021-12-10 [facility] 00:00:00 [facility] POCT[facility]GLUCOSE METER [facility] 11[facility]42:[address] [facility] BASIC METABOLIC PANEL 2021-09-24 [facility] 05:39:[address] [facility] POCT-GLUCOSE METER 2021-09-24 [facility] 00:44:[address] [facility] POCT-GLUCOSE METER 2021-09-23 [facility] 16:57:[address] [facility] SARS-COV2/RT-PCR ([facility] 2021-09-23 Irlanda Short [facility] REF LABS) 09:51:00 [facility] POCT-GLUCOSE METER 2021-09-23 [facility] 08:04:[address] [facility] POCT-GLUCOSE METER 2021-09-23 [facility] 06:14:[address] [facility] TYPE AND SCREEN, 2021-09-23 Andres Cedilloge [facility] dical AUTOMATED 04:26:00 [place] C-REACTIVE PROTEIN 2021-09-[address] [facility] Medical 03:30:00 [place] MAGNESIUM 2021-09-23 [place] [facility] 03:30:00 [place] PHOSPHORUS 2021-09-23 [facility] 03:30:00 [place] CBC (HEMOGRAM ONLY) 2021-09-23 [facility] 03:30:00 [place] BASIC METABOLIC PANEL 2021-09-23 [facility]ion [facility] 03:30:00 [place] POCT-GLUCOSE METER 2021-09-22 Teofilo [facility] 23:40:[address] [facility] CT BRAIN WITHOUT IV 2021-09-22 Teofilo [facility] CONTRAST 17:55:[address] [facility] VITAMIN B12 2021-09-22 [facility] 13:18:00 [place] TSH 2021-09-[address] [facility] ical 13:18:00 [place] POCT-GLUCOSE METER 2021-09-22 Pablo [facility] 11:47:[address] [facility] POCT-GLUCOSE METER 2021-09-21 Brett Shah [facility] 23:20:[address] [facility] HEMODIALYSIS INPATIENT 2021-09-21 Demar Moore [facility] 22:09:09 [place] MISCELLANEOUS LAB ORDER 2021-09-21 [facility] 18:20:00 [place] VALPROIC ACID LEVEL, 2021-09-21 Cecilio [facility] TOTAL 18:19:00 [place] LEVETIRACETAM LEVEL 2021-09-21 [facility] 18:19:00 [place] POCT-GLUCOSE METER 2021-09-21 [facility] 11:26:[address] [facility] POCT-GLUCOSE METER 2021-09-21 Brett Shah [facility] 06:46:00 Tcvarcristal [place] C-REACTIVE PROTEIN 2021-09-21 [facility] Wendy Joann [facility] 04:41:00 Center BASIC METABOLIC PANEL 2021-09-21 [place], Wendy Joann [facility] 04:41:00 Center MAGNESIUM 2021-09-21 [place], Wendy Joann [facility] 04:41:00 Center PHOSPHORUS 2021-09-21 Bart[place], Wendy Joann [facility] 04:41:00 Center POCT-GLUCOSE METER 2021-09-20 [facility], Wendy Joann [facility] 23:30:00 Center POCT-GLUCOSE METER 2021-09-20 Raul, Wendy Joann [facility] 17:59:00 Center POCT-GLUCOSE METER 2021-09-20 Raul, Wendy Joann [facility] 12:11:00 Center POCT-GLUCOSE METER 2021-09-20 Raul, Wendy Joann [facility] 05:52:00 Center POCT-GLUCOSE METER 2021-09-19 [facility], Wendy Joann [facility] 23:22:00 Center POCT-GLUCOSE METER 2021-09-19 Raul, Wendy David [facility] 17:06:00 [place] HEMODIALYSIS INPATIENT 2021-09-19 Casey Mooreleonarda [facility] 12:35:40 Center POCT-GLUCOSE METER 2021-09-19 Raul, Wendy Joann [facility] 11:24:00 Center POCT-GLUCOSE METER 2021-09-19 Raul, Wendy Joann [facility] 06:29:00 Center MAGNESIUM 2021-09-19 Bartbuck, Wendy Joann [facility] 04:06:00 Center BASIC METABOLIC PANEL 2021-09-19 Bartbuck, Wendy Joann [facility] 04:06:00 Center C-REACTIVE PROTEIN 2021-09-19 Bartsch, Wendy Joann [facility] 04:06:00 Center POCT-GLUCOSE METER 2021-09-19 Bartbuck, Wendy Joann [facility] 00:44:00 Center POCT-GLUCOSE METER 2021-09-18 Wendy Carter [facility] 17:46:00 Center POCT-GLUCOSE METER 2021-09-18 Raul[facility] 11:47[facility]00 Center PHOSPHORUS 2021-09-18 Wendy Carter [facility] 04:21:00 Center CBC (HEMOGRAM ONLY) 2021-09-18 [facility] 04:21[facility]00 Center BASIC METABOLIC PANEL 2021-09-18 Raul, Wendy David [facility] 04:21:00 [place] MAGNESIUM 2021-09-18 [place], [facility] 04:21:00 Center HEMODIALYSIS INPATIENT 2021-09-17 Demar Moore [facility] 19:51:14 Center POCT-GLUCOSE METER 2021-09-17 [facility] 17:15:00 Center POCT-GLUCOSE METER 2021-09-17 Raul, [facility] 12:05:00 [place] CBC (HEMOGRAM ONLY) 2021-09-17 [facility] 04:15[facility]00 Center BASIC METABOLIC PANEL 2021-09-17 Wendy Carter [facility] 04:15:00 Center MAGNESIUM 2021-09-17 Wendy Carter [facility] 04:15:00 Center POCT-GLUCOSE METER 2021-09-16 [facility] 22:38:00 Center POCT-GLUCOSE METER 2021-09-16 Paddybuck, [facility] 17:22:00 Center BLOOD CULTURE 2021-09-16 Demar Moore [facility] 14:56:00 Center HEMODIALYSIS INPATIENT 2021-09-16 Demar Moore [facility] 12:40:49 Center POCT-GLUCOSE METER 2021-09-16 [facility] 11:11:00 Center SARS-COV2/RT-PCR ([facility] 2021-09-16 Irlanda Short [facility] & REF LABS) 09:56:00 Zade [place] POCT-GLUCOSE METER 2021-09-16 [facility], Wendy David [facility] 06:15:00 Center PHOSPHORUS 2021-09-16 [facility], Wendy David [facility] 03:20:00 Center VANCOMYCIN LEVEL, 2021-09-16 Marshallnatalia Goldie Heather [facility] RANDOM 03:20:00 [place] CBC (HEMOGRAM ONLY) 2021-09-16 [facility], Wendy David [facility] 03:20:00 [place] BASIC METABOLIC PANEL 2021-09-16 [facility], [facility] 03:20:00 [place] MAGNESIUM 2021-09-16 [facility], Wendy David [facility] 03:20:00 [place] POCT-GLUCOSE METER 2021-09-15 [facility], Wendy David [facility] 23:07:00 [place] POCT-GLUCOSE METER 2021-09-15 [facility], Wendy David [facility] 17:02:00 [place] BLOOD CULTURE 2021-09-15 [facility], Wendy David [facility] 13:55:00 [place] POCT-GLUCOSE METER 2021-09-15 [facility], Wendy [facility] 11:24:00 [place] CBC W/PLT COUNT & AUTO 2021-09-15 [facility] David [facility] DIFFERENTIAL 08:50:00 [place] LACTIC ACID, VENOUS 2021-09-15 [facility], [facility] 08:50:00 [place] PROCALCITONIN 2021-09-15 [facility], Wendy David [facility] 08:50:00 [place] CBC W/PLT COUNT & AUTO 2021-09-15 [facility] Wendy David I [facility] DIFFERENTIAL 08:50:00 [place] POCT-GLUCOSE METER 2021-09-15 [facility], Wendy David [facility] 06:01:00 [place] POCT-GLUCOSE METER 2021-09-14 [facility], [facility] 23:24:00 [place] POCT-GLUCOSE METER 2021-09-14 [facility], Wendy [facility] 17:58:00 [place] CBC (HEMOGRAM ONLY) 2021-09-14 Kashmir Hopkins [facility] 17:03:00 [place] XR CHEST 1 VIEW 2021-09-14 Wendy Carter [facility] PORTABLE / BEDSIDE 16:54:00 [place] CBC W/PLT COUNT & AUTO 2021-09-14 YaniquekenrickCaseygordon [facility] DIFFERENTIAL 13:35:00 [place] BASIC METABOLIC PANEL 2021-09-14 Teresa Caseyleonarda [facility] 13:35:00 [place] MAGNESIUM 2021-09-14 TeresaCaseygordon [facility] 13:35:00 [place] PHOSPHORUS 2021-09-14 [facility] Case[facility] 13:35:00 [place] CBC W/PLT COUNT & AUTO 2021-09-14 YaniquekenrickDemar [facility] DIFFERENTIAL 13:35:00 [place] POCT-GLUCOSE METER 2021-09-14 Wendy Carter [facility] 12:10:00 [place] HEMODIALYSIS INPATIENT 2021-09-14 TeresaCaseygordon [facility] 09:22:25 [place] POCT-GLUCOSE METER 2021-09-14 Teofilo [facility] 07:19:[address] [facility] POCT-GLUCOSE METER 2021-09-14 Teofilo [facility] 06:21:[address] [facility] POCT-GLUCOSE METER 2021-09-14 Teofilo [facility] 01:06:[address] [facility] POCT-GLUCOSE METER 2021-09-14 [facility] 00:29:[address] [facility] POCT-GLUCOSE METER 2021-09-13 Teofilo [facility] 18:48:[address] [facility] POCT-GLUCOSE METER 2021-09-13 [facility]ilo [facility] 12:42:[address] [facility] POCT-GLUCOSE METER 2021-09-13 [facility] 05:59:[address] [facility] POCT-GLUCOSE METER 2021-09-12 AthreyKonrad batreschaz [facility] Medical 23:36:[address] [facility] HEMODIALYSIS INPATIENT 2021-09-12 Kerwin Mclean [facility] 18:55:00 [place] POCT-GLUCOSE METER 2021-09-12 Brett Shah [facility] Medical 18:44:[address] [facility] HEPATITIS B SURFACE 2021-09-12 Kerwin Mclean [facility] Medical ANTIGEN 15:13:00 [place] POCT-GLUCOSE METER 2021-09-12 AndreinasalmaBrett batres [facility] 13:35:[address] [facility] POCT-GLUCOSE METER 2021-09-12 PabloKonradchaz [facility] 12:59:[address] [facility] REPORT OF PROCEDURE - 2021-09-12 Dl Diana [facility] ENDOSCOPY URL 12:44:29 [place] ESOPHAGOGASTRODUODENOSC 2021-09-12 Dl Diana [facility] St L [facility] Medical OPY, WITH PEG TUBE 11:49:00 [place] INSERTION POCT-GLUCOSE METER 2021-09-12 Teofilomikala Konradchaz [facility] Medical 06:29:[address] [facility] BASIC METABOLIC PANEL 2021-09-12 Stephane Shahcaridadchaz [facility] Medical 04:06:[address] [facility] CBC W/PLT COUNT & AUTO 2021-09-12 Stephane Shahcaridadchaz [facility] Medical DIFFERENTIAL 04:06:[address] [facility] APTT 2021-09-12 Kashmir Hopkins [facility] Med ical 04:06:00 [place] CBC W/PLT COUNT & AUTO 2021-09-12 Stephane Shahcaridadchaz [facility] DIFFERENTIAL 04:06:[address] [facility] POCT-GLUCOSE METER 2021-09-11 Stephane Shahcaridadchaz [facility] Medical 23:45:[address] [facility] CBC (HEMOGRAM ONLY) 2021-09-11 Kashmir Hopkins [facility] 18:06:00 [place] APTT 2021-09-[address] [facility] 18:05:00 [facility] POCT-GLUCOSE METER 2021-09-11 Brett Shah [facility] 17:56:00 [facility] POCT-GLUCOSE METER 2021-09-11 Brett Shah [facility] 13:01:00 [facility] APTT 2021-09-11 Brett Shah [facility] dical 12:10:00 [facility] POCT-GLUCOSE METER 2021-09-11 Brett Shah [facility] 10:44:00 [facility] POCT-GLUCOSE METER 2021-09-11 [facility] 06:29:00 [facility] APTT 2021-09-11 Kellie, Kashmir [facility] 05:08:00 Center APTT 2021-09-11 Kellie, [place] [facility] 01:38:00 Center POCT-GLUCOSE METER 2021-09-11 Brett Shah [facility] Medical 01:04:00 [facility] 2021-09-10 Kellie, [place] [facility] 17:48:00 Center POCT-GLUCOSE METER 2021-09-10 Brett Shah [facility] 17:17:00 [facility] POCT-GLUCOSE METER 2021-09-10 Brett Shah [facility] Medical 11:44:00 [facility] APTT 2021-09-10 Kellie, [place] [facility] 10:41:00 Center APTT 2021-09-10 Kellie, [place] [facility] 08:56:00 Center POCT-GLUCOSE METER 2021-09-10 Kon[facility] 08:02:00 [facility] POCT-GLUCOSE METER 2021-09-10 Konrad Shahn [facility] Medical 07:02:00 [facility] APTT 2021-09-10 Kellie, [place] [facility] 02:33:00 [place] POCT-GLUCOSE METER 2021-09-10 AndreinakamiKonradLoma [facility] 00:35:[address] [facility] APTT 2021-09-09 Kellie, Kashmir [facility] Med ical 17:29:00 [place] POCT-GLUCOSE METER 2021-09-09 PabloStephaneakronchaz [facility] 17:18:[address] [facility] SARS-COV2/RT-PCR ([facility] 2021-09-09 Irlanda Short [facility] S [facility] & REF LABS) 14:25:00 [facility] POCT-GLUCOSE METER 2021-09-09 Pablo [facility] 12:12:[address] [facility] HEMODIALYSIS INPATIENT 2021-09-09 Teresa Caseyleonarda [facility] 11:44:35 [place] POCT-GLUCOSE METER 2021-09-09 Stephane Shahcaridadchaz [facility] 10:03:[address] [facility] APTT 2021-09-09 Kellie, Kashmir [facility] Med ical 08:00:00 [place] POCT-GLUCOSE METER 2021-09-09 Pablo [facility] 06:11:[address] [facility] PROTHROMBIN TIME/INR 2021-09-09 Pablo Brett [facility] Medical 05:26:[address] [facility] BASIC METABOLIC PANEL 2021-09-09 Demar Moore [facility] 05:26:00 [place] CBC W/PLT COUNT & AUTO 2021-09-09 Jorge Mooreea [facility] Medical DIFFERENTIAL 05:26:00 [place] MAGNESIUM 2021-09-09 Teresa Melandrea [facility] Medical 05:26:00 [place] PHOSPHORUS 2021-09-09 [facility] 05:26:00 [place] CBC W/PLT COUNT & AUTO 2021-09-09 [facility] DIFFERENTIAL 05:26:00 [place] APTT 2021-09-09 Kellie, Kashmir [facility] Med ical 00:44:00 [place] POCT-GLUCOSE METER 2021-09-08 Brett Shah [facility] 23:38:[address] [facility] CBC (HEMOGRAM ONLY) 2021-09-08 [facility] 17:53:00 [place] POCT-GLUCOSE METER 2021-09-08 Pablo [facility] 17:23:[address] [facility] APTT 2021-09-08 Kellie, [place] [facility] 15:58:00 [place] APTT 2021-09-08 Kellie, [place] [facility] ical 14:05:00 [place] POCT-GLUCOSE METER 2021-09-08 Pablo [facility] 12:17:[address] [facility] APTT 2021-09-08 Kellie, [place] [facility] ical 06:51:00 [place] APTT 2021-09-07 Kellie, [place] [facility] 22:15:00 [place] APTT 2021-09-07 Kellie, [place] [facility] ical 17:22:00 [place] APTT 2021-09-07 Kellie, [place] [facility] ical 10:55:00 [place] APTT 2021-09-07 Kellie, [place] [facility] ical 08:49:00 [place] HEMODIALYSIS INPATIENT 2021-09-07 Demar Moore [facility] Medical 08:48:45 [place] APTT 2021-09-07 Kellie, [place] [facility] ical 00:01:00 [place] APTT 2021-09-06 Brett Shah [facility] 17:16:[address] [facility] APTT 2021-09-06 TeofiloKonrad batresn [facility] 09:14:[address] [facility] APTT 2021-09-06 Kellie, [place] [facility] ical 06:21:00 [place] APTT 2021-09-06 Kellie, [place] [facility] ical 04:20:00 [place] CBC (HEMOGRAM ONLY) 2021-09-[address] [facility] 21:26:00 [place] APTT 2021-09-05 Kellie [facility] Med ical 21:26:00 [place] HEMODIALYSIS INPATIENT 2021-09-05 [facility] 11:45:00 [place] POCT-GLUCOSE METER 2021-09-[address] [facility] 11:11:00 [place] CBC W/PLT COUNT & AUTO 2021-09-05 Kellie [facility] Medical DIFFERENTIAL 05:08:00 [place] BASIC METABOLIC PANEL 2021-09-05 Kellie, [facility] 05:08:00 [place] CBC W/PLT COUNT & AUTO 2021-09-05 Kellie [facility] DIFFERENTIAL 05:08:00 [place] SARS-COV2/RT-PCR ([facility] 2021-09-03 Irlanda Short [facility] & REF LABS) 10:23:00 de [place] BASIC METABOLIC PANEL 2021-09-02 [facility] 03:44:00 [place] CBC W/PLT COUNT & AUTO 2021-09-02 Teresa [facility] DIFFERENTIAL 03:44:00 [place] MAGNESIUM 2021-09-02 Teresa [facility] 03:44:00 [place] PHOSPHORUS 2021-09-02 Teresa [facility] 03:44:00 [place] CBC W/PLT COUNT & AUTO 2021-09-02 [facility] DIFFERENTIAL 03:44:00 [place] HEMODIALYSIS INPATIENT 2021-08-31 Teresa Caseyea [facility] 17:24:00 [place] POCT-GLUCOSE METER 2021-08-31 [facility] 16:38:00 [facility] POCT-GLUCOSE METER 2021-08-31 [facility] 12:07:00 [facility] VALPROIC ACID LEVEL, 2021-08-31 Luna Parada [facility] TOTAL 10:43:00 [place] POCT-GLUCOSE METER 2021-08-31 Ilya [facility] 05:56:00 [facility] CBC W/PLT COUNT & AUTO 2021-08-31 Lion, Priti [facility] Medical DIFFERENTIAL 02:52:00 [place] MAGNESIUM 2021-08-31 Lion, Priti [facility] Medical 02:52:00 [place] PHOSPHORUS 2021-08-31 Lion, Priti [facility] Medical 02:52:00 [place] BASIC METABOLIC PANEL 2021-08-31 Ahmad, [facility] 02:52:00 Center APTT 2021-08-31 Noorbhai, [facility] edical 02:52:00 [facility] CBC W/PLT COUNT & AUTO 2021-08-31 Lion [facility] Medical DIFFERENTIAL 02:52:00 [place] POCT-GLUCOSE METER 2021-08-30 [facility] 23:30:00 [facility] POCT-GLUCOSE METER 2021-08-30 [facility] 18:14:00 [facility] POCT-GLUCOSE METER 2021-08-30 [facility] 11:35:00 [facility] EEG 12-26 HR CONTINUOUS 2021-08-30 Ilya [facility] MONITORING WITH VIDEO 06:28:00 [facility] POCT-GLUCOSE METER 2021-08-30 [facility] 05:51:00 [facility] POCT-GLUCOSE METER 2021-08-30 [facility] 04:44:00 [facility] CBC W/PLT COUNT & AUTO 2021-08-30 Lion, [facility] Medical DIFFERENTIAL 03:21:00 [place] MAGNESIUM 2021-08-30 Lion, [facility] 03:21:00 [place] PHOSPHORUS 2021-08-30 Lion, Priti [facility] Medical 03:21:00 [place] BASIC METABOLIC PANEL 2021-08-30 Ahmad, Ali [facility] 03:21:00 Center APTT 2021-08-30 Noorbhai, [facility] 03:21:00 [facility] CBC W/PLT COUNT & AUTO 2021-08-30 Priti Seymour [facility] Medical DIFFERENTIAL 03:21:00 [place] XR CHEST 1 VIEW 2021-08-30 Toan Zunilda Lisbet [facility] Medical PORTABLE / BEDSIDE 01:16:00 [place] POCT-GLUCOSE METER 2021-08-29 Ilya Wilmer [facility] 23:38:00 [facility] APTT 2021-08-29 [facility] Jones [facility] 22:06:00 [facility] POCT-GLUCOSE METER 2021-08-29 [facility] 18:10:00 [facility] APTT 2021-08-29 [facility] Jones [facility] 15:04:00 [facility] POCT-GLUCOSE METER 2021-08-29 [facility]Wilmer[facility] 11:46:00 [facility] HEMODIALYSIS INPATIENT 2021-08-29 Kerwin Mclean [facility] Medical 07:31:54 [place] APTT 2021-08-29 [facility] Jones [facility] 06:51:00 [facility] EEG 12-26HR 2021-08-29 [facility] Curtis [facility] INTERMITTENT MONITORING 06:13:00 [facility] nter WITH VIDEO POCT-GLUCOSE METER 2021-08-29 [facility] Curtis [facility] 05:32:00 [facility] MAGNESIUM 2021-08-29 [facility] 04:59:00 [place] PHOSPHORUS 2021-08-29 Lion [facility] 04:59:00 [place] COMPREHENSIVE METABOLIC 2021-08-29 Nichelle Day [facility] PANEL 04:59:00 [place] BLOOD GAS, ARTERIAL 2021-08-29 Elisabet Seymourutha [facility] Poly kes Medical 03:41:00 [place] CBC W/PLT COUNT & AUTO 2021-08-29 Lion, [facility] DIFFERENTIAL 03:40:00 [place] CBC W/PLT COUNT & AUTO 2021-08-29 Lion [facility] DIFFERENTIAL 03:40:00 [place] XR CHEST 1 VIEW 2021-08-29 Zunilda Joya [facility] Medical PORTABLE / BEDSIDE 02:28:00 [place] POCT-GLUCOSE METER 2021-08-29 [facility] 00:28:00 [facility] APTT 2021-08-29 [facility] 00:23:00 [facility] APTT 2021-08-28 [facility], [facility] 22:05:00 [facility] XR ABDOMEN/KUB 1 VIEW 2021-08-28 [facility], [facility] PORTABLE 18:50:00 [facility] POCT-GLUCOSE METER 2021-08-28 [facility] 18:08:00 [facility] APTT 2021-08-28 [facility], [facility] ed[facility] 12:53:00 [facility] POCT-GLUCOSE METER 2021-08-28 [facility] 12:02:00 [facility] POCT-GLUCOSE METER 2021-08-28 [facility] 07:17:00 [facility] EEG 12-26HR 2021-08-28 [facility] edical INTERMITTENT MONITORING 06:09:00 [facility] nter WITH VIDEO CBC W/PLT COUNT & AUTO 2021-08-28 Lion [facility] DIFFERENTIAL 04:10:00 [place] CBC W/PLT COUNT & AUTO 2021-08-28 Lion [facility] DIFFERENTIAL 04:10:00 [place] BASIC METABOLIC PANEL 2021-08-28 Lion [facility] 04:10:00 [place] MAGNESIUM 2021-08-28 Lion [facility] 04:10:00 Center PHOSPHORUS 2021-08-28 Lion [facility] 04:10:00 [place] BLOOD GAS, VENOUS 2021-08-28 [facility] 04:10:00 [facility] PT/APTT 2021-08-[address] [facility], [facility] edical 04:10:00 [facility] XR CHEST 1 VIEW 2021-08-28 Zunilda Joya [facility] PORTABLE / BEDSIDE 00:39:00 [place] POCT-GLUCOSE METER 2021-08-[address] [facility], [facility] 23:45:00 [facility] PT/APTT 2021-08-[address] [facility], [facility] edical 21:17:00 [facility] POCT-GLUCOSE METER 2021-08-[address] [facility], [facility] 17:30:00 [facility] APTT 2021-08-27 Robert De La Vega [facility] edical 14:40:00 [facility] POCT-GLUCOSE METER 2021-08-[address] [facility], [facility] 12:20:00 [facility] POCT-GLUCOSE METER 2021-08-[address] [facility], [facility] 08:16:00 [facility] POCT-GLUCOSE METER 2021-08-27 [facility] 07:02:00 [facility] PT/APTT 2021-08-[address] [facility], [facility] edical 06:57:00 [facility] BLOOD GAS, ARTERIAL 2021-08-27 Priti Seymour [facility] 06:39:00 [place] CBC W/PLT COUNT & AUTO 2021-08-27 Lion [facility] DIFFERENTIAL 06:35:00 [place] CBC W/PLT COUNT & AUTO 2021-08-27 Lion [facility] DIFFERENTIAL 06:35:00 [place] BASIC METABOLIC PANEL 2021-08-27 Lion [facility] 06:35:00 [place] MAGNESIUM 2021-08-27 Lion [facility] 06:35:00 [place] PHOSPHORUS 2021-08-27 Lion [facility] 06:35:00 [place] VALPROIC ACID LEVEL, 2021-08-27 PittaBrisa hendrickson [facility] TOTAL 06:35:00 [place] EEG 12-26 HR CONTINUOUS 2021-08-27 [facility], [facility] MONITORING WITH VIDEO 06:16:00 [facility] XR CHEST 1 VIEW 2021-08-27 Zunilda Joya [facility] PORTABLE / BEDSIDE 02:27:00 [place] POCT-GLUCOSE METER 2021-08-27 [facility] 01:37:00 [facility] PREPARE RBC 2021-08-26 Ramin De Leon [facility] 23:55:00 [place] POCT-GLUCOSE METER 2021-08-26 [facility] 18:09:00 [facility] HEMODIALYSIS INPATIENT 2021-08-26 Demar Moore [facility] 16:10:19 [place] POCT-GLUCOSE METER 2021-08-26 [facility] [facility] 13:00:00 [facility] APTT 2021-08-26 [facility] edical 10:08:00 [facility] POCT-GLUCOSE METER 2021-08-26 [facility] 05:24:00 [facility] BLOOD GAS, ARTERIAL 2021-08-26 Lion [facility] 04:29:00 [place] BASIC METABOLIC PANEL 2021-08-26 Lion [facility] 04:28:00 [place] MAGNESIUM 2021-08-26 Lion [facility] 04:28:00 Center PHOSPHORUS 2021-08-26 Lion, [facility] 04:28:00 [place] VALPROIC ACID LEVEL, 2021-08-26 Brisa Trujillo [facility] TOTAL 04:28:00 [place] APTT 2021-08-26 [facility] edical 04:27:00 [facility] XR CHEST 1 VIEW 2021-08-26 Zunilda Joya [facility] PORTABLE / BEDSIDE 02:31:00 [place] CBC W/PLT COUNT & AUTO 2021-08-26 Lion [facility] DIFFERENTIAL 00:48:00 [place] CBC W/PLT COUNT & AUTO 2021-08-26 Lion [facility] DIFFERENTIAL 00:48:00 [place] POCT-GLUCOSE METER 2021-08-25 [facility] 23:25:00 [facility] APTT 2021-08-25 [facility], [facility] edical 21:28:00 [facility] TRANSFUSE LEUKO-REDUCED 2021-08-25 [facility] RED BLOOD CELLS 19:00:00 [facility] POCT-GLUCOSE METER 2021-08-25 [facility] 18:13:00 [facility] APTT 2021-08-25 [facility], [facility] edical 14:25:00 [facility] POCT-GLUCOSE METER 2021-08-25 [facility] 12:43:00 [facility] PREPARE LEUKO-REDUCED 2021-08-25 [facility], [facility] RBC 12:14:00 [facility] APTT 2021-08-25 Vandana Andrade [facility] 11:00:00 [place] LACTIC ACID, VENOUS 2021-08-25 Nichelle Day [facility] 11:00:00 Center TYPE AND SCREEN, 2021-08-25 [facility] AUTOMATED 11:00:00 [facility] SARS-COV2/RT-PCR ([facility] 2021-08-25 [facility] & REF LABS) 10:50:00 [facility] CBC (HEMOGRAM ONLY) 2021-08-25 Lion [facility] 05:54:00 [place] POCT-GLUCOSE METER 2021-08-25 [facility] 05:50:00 [facility] BLOOD GAS, ARTERIAL 2021-08-25 Lion [facility] 02:52:00 [place] CBC W/PLT COUNT & AUTO 2021-08-25 Lion [facility] DIFFERENTIAL 02:52:00 [place] BASIC METABOLIC PANEL 2021-08-25 Lion [facility] 02:52:00 [place] MAGNESIUM 2021-08-25 Lion [facility] 02:52:00 [place] PHOSPHORUS 2021-08-25 Lion [facility] 02:52:00 [place] LACTIC ACID, VENOUS 2021-08-25 Lion [facility] 02:52:00 [place] APTT 2021-08-25 [facility] edical 02:52:00 [facility] CREATINE KINASE (CK) 2021-08-25 [facility] 02:52:00 [place] CBC W/PLT COUNT & AUTO 2021-08-25 Lion [facility] DIFFERENTIAL 02:52:00 [place] HEPATIC FUNCTION PANEL 2021-08-25 [facility] 02:52:00 [place] XR CHEST 1 VIEW 2021-08-25 Zunilda Joya [facility] PORTABLE / BEDSIDE 02:33:00 [place] POCT-GLUCOSE METER 2021-08-24 [facility] 23:10:00 [facility] POCT-GLUCOSE METER 2021-08-24 [facility] 17:03:00 [facility] APTT 2021-08-24 [facility] edical 16:50:00 Zoebali [place] LACTIC ACID, ARTERIAL 2021-08-24 Nichelle Day [facility] 16:50:00 [place] POCT-GLUCOSE METER 2021-08-24 [facility] 14:19:00 [facility] HEMODIALYSIS INPATIENT 2021-08-24 Demar Moore [facility] 11:19:00 [place] XR CHEST 1 VIEW 2021-08-24 [facility] edical PORTABLE / BEDSIDE 09:46:00 [facility] POCT-GLUCOSE METER 2021-08-24 [facility] 05:49:00 [facility] PHENYTOIN LEVEL, TOTAL 2021-08-24 Bghigh, Sherita [facility] 05:41:00 [place] BLOOD GAS, ARTERIAL 2021-08-24 [facility] 04:58:00 [place] CBC W/PLT COUNT & AUTO 2021-08-24 [facility] DIFFERENTIAL 04:54:00 [place] BASIC METABOLIC PANEL 2021-08-24 [facility] 04:54:00 [place] MAGNESIUM 2021-08-24 [facility] 04:54:00 [place] PHOSPHORUS 2021-08-24 [facility] 04:54:00 [place] CALCIUM, IONIZED 2021-08-24 [facility] 04:54:00 [place] LACTIC ACID, VENOUS 2021-08-24 [facility] 04:54:00 [place] CBC W/PLT COUNT & AUTO 2021-08-24 [facility] DIFFERENTIAL 04:54:00 [place] (CELLAVISION MANUAL 2021-08-24 [facility] DIFF) 04:54:00 [place] APTT 2021-08-24 [facility] edical 04:53:00 [facility] XR ABDOMEN/KUB 1 VIEW 2021-08-24 Priti Seymour [facility] PORTABLE 00:26:00 Center XR CHEST 1 VIEW 2021-08-24 Zunilda Joya [facility] Medical PORTABLE / BEDSIDE 00:25:00 [place] POCT-GLUCOSE METER 2021-08-23 [facility] 23:48:00 [facility] APTT 2021-08-23 NoorbRobert wyman [facility] edical 20:32:00 [facility] APTT 2021-08-[address] [facility] edical 18:28:00 [facility] POCT-GLUCOSE METER 2021-08-23 [facility] 16:40:00 [facility] POCT-GLUCOSE METER 2021-08-23 [facility] 11:52:00 [facility] APTT 2021-08-23 NoRobert kennedy [facility] edical 11:46:00 [facility] VENOUS DOPPLER ARMS 2021-08-23 AdanmerleGeeew [facility] BILATERAL 10:15:00 Center XR CHEST 1 VIEW 2021-08-23 Dinesh Head [facility] PORTABLE / BEDSIDE 09:25:00 [place] SPUTUM CULTURE + GRAM 2021-08-23 Dinesh Head [facility] STAIN 09:21:00 [place] PROCALCITONIN 2021-08-23 Nomarcia, Robert [facility] edical 09:03:00 [facility] EEG 12-26 HR CONTINUOUS 2021-08-23 Ravinder Ardon [facility] MONITORING WITH VIDEO 06:07:00 [place] POCT-GLUCOSE METER 2021-08-23 [facility] 05:13:00 [facility] BLOOD GAS, ARTERIAL 2021-08-23 Lion, [facility] 03:48:00 [place] CBC W/PLT COUNT & AUTO 2021-08-23 Lion [facility] DIFFERENTIAL 03:47:00 [place] BASIC METABOLIC PANEL 2021-08-23 Lion [facility] 03:47:00 [place] MAGNESIUM 2021-08-23 Lion [facility] 03:47:00 [place] PHOSPHORUS 2021-08-23 Lion [facility] 03:47:00 [place] CBC W/PLT COUNT & AUTO 2021-08-23 Lion [facility] DIFFERENTIAL 03:47:00 [place] (CELLAVISION MANUAL 2021-08-23 Lion [facility] DIFF) 03:47:00 [place] XR CHEST 1 VIEW 2021-08-23 Zunilda Joya [facility] PORTABLE / BEDSIDE 01:23:00 [place] POCT-GLUCOSE METER 2021-08-23 [facility] 00:24:00 [facility] ALBUMIN 2021-08-22 [facility] 16:57:00 [place] POCT-GLUCOSE METER 2021-08-22 [facility] 16:56:00 [facility] HEMODIALYSIS INPATIENT 2021-08-22 [facility] 11:22:25 [place] EEG 12-26 HR CONTINUOUS 2021-08-22 Ravinder Ardon [facility] MONITORING WITH VIDEO 07:49:00 [place] POCT-GLUCOSE METER 2021-08-22 [facility] 05:37:00 [place] BASIC METABOLIC PANEL 2021-08-22 [facility] 03:58:00 [place] MAGNESIUM 2021-08-22 [facility] Medical 03:58:00 [place] CBC W/PLT COUNT & AUTO 2021-08-22 [facility] DIFFERENTIAL 03:58:00 [place] BLOOD GAS, ARTERIAL 2021-08-22 [facility], Ramin [facility] 03:58:00 [place] PHOSPHORUS 2021-08-22 [facility], Ramin Piedra [facility] 03:58:00 [place] CBC W/PLT COUNT & AUTO 2021-08-22 JustinRamin bowen [facility] DIFFERENTIAL 03:58:00 [place] (CELLAVISION MANUAL 2021-08-22 [facility] Ramin [facility] DIFF) 03:58:00 [place] XR CHEST 1 VIEW 2021-08-22 Zunilda Joya [facility] PORTABLE / BEDSIDE 00:32:00 [place] POCT-GLUCOSE METER 2021-08-21 [facility], Ramin [facility] 23:43:00 [place] BASIC METABOLIC PANEL 2021-08-21 Dilcia, [facility] 15:55:00 [place] PHOSPHORUS 2021-08-21 McGlennon Luis Eduardo [facility] 15:55:00 [place] PHENYTOIN LEVEL, TOTAL 2021-08-21 Zunilda Joya [facility] I [facility] 12:14:00 [place] HEMOGLOBIN AND 2021-08-21 [facility] edical HEMATOCRIT 12:14:00 [facility]OLIC PANEL 2021-08-21 [facility] 12:14:00 [facility] CBC W/PLT COUNT & AUTO 2021-08-21 Dilcia, [facility] DIFFERENTIAL 12:14:00 [place] MAGNESIUM 2021-08-21 Dilcia, [facility] ical 12:14:00 [place] PHOSPHORUS 2021-08-21 Dilcia, [facility] ical 12:14:00 [place] CBC W/PLT COUNT & AUTO 2021-08-21 [facility], [facility] DIFFERENTIAL 12:14:00 [place] IGG INDEX (CSF + BLOOD) 2021-08-21 [facility], [facility] 12:10:00 Zoebali [place] PROTEIN, CSF 2021-08-21 [facility] edical 12:09:00 [facility] CSF CELL COUNT 2021-08-21 [facility], [facility] edical W/DIFFERENTIAL 12:09:00 [facility] CSF CULTURE + GRAM 2021-08-21 [facility] Medical STAIN 12:09:00 [facility] GLUCOSE, CSF 2021-08-21 [facility] M edical 12:09:00 [facility] MENINGITIS/ENCEPHALITIS 2021-08-21 [facility] Medical PANEL 12:09:00 [facility] PARANEOPLASTIC AB EVAL 2021-08-21 [facility], [facility] W/ REFLEX TITER & LB, 12:09:00 [facility] CSF WEST [place] VIRUS, CSF, 2021-08-21 [facility], [facility] IGG & IGM 12:09:00 [facility] EEG 12-26 HR CONTINUOUS 2021-08-21 Ravinder Ardon [facility] MONITORING WITH VIDEO 09:37:58 [place] XR CHEST 1 VIEW 2021-08-21 Zunilda Joya [facility] Medical PORTABLE / BEDSIDE 07:49:00 [place] POCT-GLUCOSE METER 2021-08-21 [facility] 06:18:00 [place] BLOOD GAS, ARTERIAL 2021-08-21 [facility] 03:24:00 [place] PHENYTOIN LEVEL, TOTAL 2021-08-21 Dilcia, Fnu [facility] Medical AND FREE 03:23:00 [place] BASIC METABOLIC PANEL 2021-08-21 [facility] 03:23:00 [place] MAGNESIUM 2021-08-21 [facility] Medical 03:23:00 [place] PHOSPHORUS 2021-08-21 [facility] 03:23:00 [place] CBC W/PLT COUNT & AUTO 2021-08-21 [facility] Medical DIFFERENTIAL 03:23:00 [place] CBC W/PLT COUNT & AUTO 2021-08-21 [facility] DIFFERENTIAL 03:23:00 [place] POCT-GLUCOSE METER 2021-08-21 [facility], Ramin [facility] 00:20:00 Center ECG 12-LEAD 2021-08-20 Unknown, 7 Doctor [facility] 23:09:01 [place] ECG 12-LEAD 2021-08-20 Unknown, 7 Doctor [facility] 23:09:01 Center ECG 12-LEAD 2021-08-20 PittaBrisa hendrickson [facility] Med ical 23:08:35 Center ECG 12-LEAD 2021-08-20 Unknown, Hl7 Doctor [facility] 23:08:35 Center ECG 12-LEAD 2021-08-20 Unknown, [address] 23:08:35 [place] POCT-GLUCOSE METER 2021-08-20 [facility], Ramin Piedra [facility] 22:22:00 [place] POCT-GLUCOSE METER 2021-08-20 [facility], Ramin Piedra [facility] 17:25:00 [place] PHENYTOIN LEVEL, TOTAL 2021-08-20 Dinesh Head [facility] 14:09:00 [place] DC INSERT 2021-08-20 McGlenLuis Eduardo bloom [facility] CATH,ART,PERCUT,SHORTTE 13:28:00 [place] RM POCT-GLUCOSE METER 2021-08-20 [facility], Ramin [facility] 12:04:00 [place] XR ABDOMEN/KUB 1 VIEW 2021-08-20 Dinesh Head [facility] PORTABLE 11:57:00 [place] POCT-GLUCOSE METER 2021-08-20 [facility], Ramin Piedra [facility] 11:04:00 [place] EEG 12-26 HR CONTINUOUS 2021-08-20 Ravinder Ardon [facility] MONITORING WITH VIDEO 10:52:21 [place] POCT-GLUCOSE METER 2021-08-20 [facility], Ramin [facility] 07:02:00 [place] HEMODIALYSIS INPATIENT 2021-08-20 Ranjan Levin [facility] 06:21:50 [place] POCT-GLUCOSE METER 2021-08-20 [facility], Ramin Piedra [facility] 06:11:00 [place] BLOOD GAS, ARTERIAL 2021-08-20 [facility], Ramin [facility] 04:29:00 [place] PTH, INTACT 2021-08-20 Maria Dolores LezamaRanjan [facility] 04:28:00 [place] CBC W/PLT COUNT & AUTO 2021-08-20 [facility], Ramin Piedra [facility] DIFFERENTIAL 04:28:00 [place] BASIC METABOLIC PANEL 2021-08-20 [facility] 04:28:00 [place] MAGNESIUM 2021-08-20 [facility], Ramin Tadeo [facility] 04:28:00 [place] PHOSPHORUS 2021-08-20 [facility], [facility] Atdeo [facility] 04:28:00 [place] CBC W/PLT COUNT & AUTO 2021-08-20 [facility] DIFFERENTIAL 04:28:00 [place] POCT-GLUCOSE METER 2021-08-19 [facility] 19:04:00 [place] POCT-GLUCOSE METER 2021-08-19 Isaac Meehan [facility] 11:51:00 [place] XR ABDOMEN/KUB 1 VIEW 2021-08-19 Negrete, [facility] PORTABLE 10:50:00 [place] CENTRAL LINE 2021-08-19 Negrete, [facility] Med ical 10:41:04 [place] US GUIDE, VASCULAR 2021-08-19 Negrete, Pilar [facility] ACCESS 10:41:04 [place] XR CHEST 1 VIEW 2021-08-19 Negrete, [facility] Med ical PORTABLE / BEDSIDE 10:35:00 [place] SARS-COV2/RT-PCR ([facility] 2021-08-19 Negrete, [facility] Medical & REF LABS) 09:43:00 [place] INTUBATION 2021-08-19 Tyson, Demetrius Annika [facility] 09:37:37 [place] BLOOD GAS, ARTERIAL 2021-08-19 Negrete, [facility] Medical 09:34:00 [place] POCT-GLUCOSE METER 2021-08-19 Isaac Meehan [facility] 08:10:00 [place] POCT-GLUCOSE METER 2021-08-19 [facility] 06:08:00 Center CBC W/PLT COUNT & AUTO 2021-08-19 Juaquin, Everardo Aslam [facility] DIFFERENTIAL 03:37:00 [place] BASIC METABOLIC PANEL 2021-08-19 Juaquin, Mobin [facility] 03:37:00 Center CBC W/PLT COUNT & AUTO 2021-08-19 Juaquin, Everardo [facility]Fair[facility] DIFFERENTIAL 03:37:00 [place] POCT-GLUCOSE METER 2021-08-18 Esther Meehangeorgette SmithaAd[facility] 21:06:00 [place] MR BRAIN WITHOUT IV 2021-08-18 Juaquin, Everardo [facility] CONTRAST 15:58:[address] [place] [address] BRAIN WITHOUT IV 2021-08-18 Negrete, Pilar [facility] CONTRAST 15:56:00 [place] POCT-GLUCOSE METER 2021-08-18 Isaac [facility] 10:36:00 [place] CBC W/PLT COUNT & AUTO 2021-08-18 Vellanbutch Vinitha [facility] DIFFERENTIAL 09:53:00 [place] COMPREHENSIVE METABOLIC 2021-08-18 Vellanki Vinitha [facility] PANEL 09:53:00 [place] MAGNESIUM 2021-08-18 Negrete, [facility]Ohio[facility] ical 09:53:00 [place] CBC W/PLT COUNT & AUTO 2021-08-18 Velteodora Vinitha [facility] DIFFERENTIAL 09:53:00 [place] POCT-GLUCOSE METER 2021-08-18 Esther Meehangeorgette [facility] 08:48:00 [place] POCT-GLUCOSE METER 2021-08-17 Zoran, [facility] 17:29:00 Center POCT-GLUCOSE METER 2021-08-17 Zoran, [facility] 12:33:00 [place] POCT-GLUCOSE METER 2021-08-17 Zoran[facility] 10:39:00 [place] COMPREHENSIVE METABOLIC 2021-08-17 Esther Meehangeorgette [facility] PANEL 04:57:00 Center CBC W/PLT COUNT & AUTO 2021-08-17 ZoranEsther alegriageorgette Staples [facility] DIFFERENTIAL 04:57:00 [place] MAGNESIUM 2021-08-17 Isaac Meehan Jhoan [facility] edical 04:57:00 [place] CBC W/PLT COUNT & AUTO 2021-08-17 Isaac Meehan Jhoan [facility] DIFFERENTIAL 04:57:00 [place] IR TUNNELED CATHETER 2021-08-16 Jenifer Santos [facility] INSERTION 10:00:00 [place] COMPREHENSIVE METABOLIC 2021-08-16 ZoranEsther alegriageorgette Staples [facility] PANEL 04:57:00 [place] CBC W/PLT COUNT & AUTO 2021-08-16 Isaac Meehan Fridaricky [facility] DIFFERENTIAL 04:57:00 [place] MAGNESIUM 2021-08-16 Isaac Meehan Jhoan [facility] ed[facility] 04:57:00 [place] CBC W/PLT COUNT & AUTO 2021-08-16 Isaac Meehan Jhoan [facility] DIFFERENTIAL 04:57:00 [place] GI PATHOGEN PROFILE BY 2021-08-15 Say Bautista [facility] Medical PCR 14:45:00 [place] CALCIUM, IONIZED 2021-08-15 Jann Yo Oneil [facility] 03:35:00 [place] COMPREHENSIVE METABOLIC 2021-08-15 Isaac Meehan Fridaricky [facility] PANEL 03:35:00 [place] CBC W/PLT COUNT & AUTO 2021-08-15 Isaac Meehan Fridaricky [facility] DIFFERENTIAL 03:35:00 [place] MAGNESIUM 2021-08-15 Isaac Meehan Fridaricky [facility] ed[facility] 03:35:00 [place] HEPATITIS B SURFACE 2021-08-15 Jann, Yo Oneil [facility] ANTIGEN 03:35:00 [place] HEPATITIS B SURFACE 2021-08-15 Jann Yo Oneil [facility] ANTIBODY 03:35:00 [place] CBC W/PLT COUNT & AUTO 2021-08-15 Isaac Meehanmikalaricky [facility] DIFFERENTIAL 03:35:00 [place] PREPARE LEUKO-REDUCED 2021-08-13 Isaac Meehan [facility] RBC 23:55:00 [place] BASIC METABOLIC PANEL 2021-08-13 Jann [facility] 16:45:00 [place] CBC W/PLT COUNT & AUTO 2021-08-13 Jann [facility] DIFFERENTIAL 16:45:00 [place] CALCIUM, IONIZED 2021-08-13 [facility] Medical 16:45:00 [place] CBC W/PLT COUNT & AUTO 2021-08-13 [facility] DIFFERENTIAL 16:45:00 [place] PHOSPHORUS 2021-08-13 [facility] 10:59:00 [place] C. DIFFICILE GDH TOXIN 2021-08-13 [facility] 10:12:00 [place] COMPREHENSIVE METABOLIC 2021-08-13 Brendan Hinojosa [facility] I [facility] Medical PANEL 04:52:00 [place] CBC W/PLT COUNT & AUTO 2021-08-13 Pongvachararak, Brendan [facility] Medical DIFFERENTIAL 04:52:00 [place] MAGNESIUM 2021-08-13 Isaac Meehan [facility] M edical 04:52:00 [place] CBC W/PLT COUNT & AUTO 2021-08-13 Pongvaczofiak, [facility] DIFFERENTIAL 04:52:00 [place] BASIC METABOLIC PANEL 2021-08-12 Cesar [facility] Medical 19:40:00 [place] TRANSFUSE LEUKO-REDUCED 2021-08-12 Isaac Meehan [facility] RED BLOOD CELLS 14:28:00 Center TYPE AND SCREEN, 2021-08-12 Isaac Meehan [facility] AUTOMATED 10:56:00 [place] COMPREHENSIVE METABOLIC 2021-08-12 Micaela Brendan [facility] Medical PANEL 02:57:00 [place] CBC W/PLT COUNT & AUTO 2021-08-12 Pongvacalbertaarak, Brendan [facility] Medical DIFFERENTIAL 02:57:00 [place] FERRITIN 2021-08-12 Cesar, Zheng [facility] 02:57:00 [place] MAGNESIUM 2021-08-12 Isaac Meehan [facility] 02:57:00 [place] CBC W/PLT COUNT & AUTO 2021-08-12 MicaelaBrendan [facility] DIFFERENTIAL 02:57:00 [place] BASIC METABOLIC PANEL 2021-08-11 Cesar Zheng [facility] 18:00:00 [place] MAGNESIUM 2021-08-11 Cesar Zheng [facility] 18:00:00 [place] 2D ECHO W/ DOPPLER 2021-08-11 Isaac Meehan [facility] [facility] (CW/PW/COLOR) 13:37:08 [place] COMPREHENSIVE METABOLIC 2021-08-[address] [facility] PANEL 04:42:00 [place] CBC W/PLT COUNT & AUTO 2021-08-11 Micaela Brendan [facility] DIFFERENTIAL 04:42:00 [place] HEMOGLOBIN A1C 2021-08-11 Micaela Brendan [facility] 04:42:00 [place] LIPID PANEL 2021-08-11 Garrettgvacalbertaarak, Brendan [facility] 04:42:00 [place] MAGNESIUM 2021-08-11 Cesar, Zheng [facility] 04:42:00 [place] IRON, TIBC, % SAT. 2021-08-11 Cesar, Zheng [facility] (WITHOUT FERRITIN) 04:42:00 [place] CBC W/PLT COUNT & AUTO 2021-08-11 Micaela Brendan [facility] DIFFERENTIAL 04:42:00 [place] CARDIAC CATH REPORT - 2021-08-11 Provider, Default [facility] SCAN [facility]:00[facility]00 [facility] EKG-SCANNED 2021-08-11 Provider, [facility] AUTHORIZATION FOR 2020-01-30 Doctor Unassigned, No [facility] RELEASE OF PHI 06:01:00 [facility] MEDICAL 2019-05-23 Doctor Unassigned, No [facility] RELEASE/CLEARANCE FORMS 06:01:00 [facility] AUTHORIZATION FOR 2019-05-12 Doctor Unassigned, No [facility] RELEASE OF PHI 06:01:00 Name Medical Branch Breast Reduction [facility] Plan of Care Planned Activity Planned Date Details Comments Source Future Scheduled 2028-01-[address] [facility] 00:00:00 malignant neoplasm Medical C enter of colon (procedure) [code = [id number]] Future Scheduled 2028-01-[address] [facility] 00[facility]00:00 malignant neoplasm Medical C enter of colon (procedure) [code = 394194169] Future Scheduled 2028-01-[address] [facility] 00:00:00 malignant neoplasm Medical C enter of colon (procedure) [code = 785405767] Future Scheduled 2028-01-[address] [facility] 00:00:00 malignant neoplasm Medical C enter of colon (procedure) [code = 166755236] Future Scheduled 2024-08-[address] [facility]00 (procedure) [code = [facility] [id number]] Future Scheduled 2024-08-[address] [facility]00 (procedure) [code = Medical Center 49454529] Future Scheduled 2024-08-[address] [facility] 00:00:00 (procedure) [code = [facility] 52651705] Future Scheduled 2024-08-[address] [facility] 00:00:00 (procedure) [code = [facility] 74590393] Future Scheduled 2022-02-13 [facility]03:07 [facility] cerv[facility] (procedure) [code = 832890887] Future Scheduled 2022-02-13 BREAST CANCER [facility] 15:03:07 SCREENING [code = Hospital BREAST CANCER SCREENING] Future Scheduled 2022-02-13 COL[facility]OSCOPY [facility] 15:03:07 SCREENING [code = Hospital COLONOSCOPY SCREENING] Future Scheduled 2022-02-13 INFLUENZA VACCINE [facility] 15:03:07 [code = INFLUENZA Hospital VACCINE] Future Scheduled 2022-02-13 [facility]IT[facility] B [facility] 15:03:07 (1 of 3 - 3-dose Hospital series) [code = HEPATITIS B VACCINES (1 of 3 - 3-dose series)] Future Scheduled 2022-02-13 COVID-[address] [facility] 15:03:07 (#1) [code = Hospital COVID-19 VACCINE (#1)] Future Scheduled 2022-02-13 Pneumococcal [facility] 15:03:07 Vaccine: [facility] (0 to 5 Years) and At-Risk Patients (6 to 64 Years) (1 - PCV) [code = Pneumococcal Vaccine: Pediatrics (0 to 5 Years) and At-Risk Patients (6 to 64 Years) (1 - PCV)] Future Scheduled 2022-02-13 Hepatitis C [facility] 15:03:07 screening Hospital (procedure) [code = 018358667] Future Scheduled 2022-02-13 SHINGLES VACCINES (1 [facility] 15:03:07 of 2) [code = Hospital SHINGLES VACCINES (1 of 2)] Future Scheduled 2022-02-[address] [facility] (procedure) [code = 97162560] Future Scheduled 2022-02-[address] [facility] Center (procedure) [code = 09150201] Future Scheduled 2022-02-[address] [facility] Center (procedure) [code = 80502075] Future Scheduled 2022-02-[address] [facility] Center (procedure) [code = 53841734] Future Scheduled 2022-02-06 HEPATITIS B VACCINES [facility] 08:04:10 (1 of 3 - 3-dose Hospital series) [code = HEPATITIS B VACCINES (1 of 3 - 3-dose series)] Future Scheduled 2022-02-06 COVID-[address] Test 08:04:10 (#1) [code = Hospital COVID-19 VACCINE (#1)] Future Scheduled 2022-02-06 Pneumococcal [facility] 08:04:10 Vaccine: [facility] (0 to 5 Years) and At-Risk Patients (6 to 64 Years) (1 - PCV) [code = Pneumococcal Vaccine: Pediatrics (0 to 5 Years) and At-Risk Patients (6 to 64 Years) (1 - PCV)] Future Scheduled 2022-02-06 [facility] 08:04:10 screening Hospital (procedure) [code = 544347736] Future Scheduled 2022-02-06 SHINGLES VACCINES (1 [facility] 08:04:10 of 2) [code = Hospital SHINGLES VACCINES (1 of 2)] Future Scheduled 2022-02-06 [facility] 08:04:10 malignant neoplasm Hospital of cervix (procedure) [code = 760177515] Future Scheduled 2022-02-06 BREAST CANCER [facility] 08:04:10 SCREENING [code = Hospital BREAST CANCER SCREENING] Future Scheduled 2022-02-06 COLONOSCOPY [facility] 08:04:10 SCREENING [code = Hospital COLONOSCOPY SCREENING] Future Scheduled 2022-02-06 INFLUENZA VACCINE [facility] 08:04:10 [code = INFLUENZA Hospital VACCINE] Future Scheduled 2021-12-24 [facility] INFLUENZA VACCINE (#1)] Future Scheduled 2021-11-[address] [facility] 00:00:00 (Season Ended) [code Medical Center = INFLUENZA VACCINE (Season Ended)] Future Scheduled 2021-11-[address] [facility] 00:00:00 (Season Ended) [code Medical Center = INFLUENZA VACCINE (Season Ended)] Future Scheduled 2021-11-[address] [facility] 00:00:00 (#1) [code = [facility] INFLUENZA VACCINE (#1)] Future Scheduled 2021-10-13 COVID-[address] [facility] 06:56:00 (#1) [code = Hospital COVID-19 VACCINE (#1)] Future Scheduled 2021-10-13 Pneumococcal [facility] 06:56:00 Vaccine: [facility] (0 to 5 Years) and At-Risk Patients (6 to 64 Years) (1 - PCV) [code = Pneumococcal Vaccine: Pediatrics (0 to 5 Years) and At-Risk Patients (6 to 64 Years) (1 - PCV)] Future Scheduled 2021-10-13 [facility] C [facility] 06:56:00 screening Hospital (procedure) [code = 465357614] Future Scheduled 2021-10-13 SHINGLES VACCINES (1 [facility] 06[facility]56:00 of 2) [code = Hospital SHINGLES VACCINES (1 of 2)] Future Scheduled 2021-10-13 [facility] 06:56:00 malignant neoplasm Hospital of cervix (procedure) [code = 140095578] Future Scheduled 2021-10-13 BREAST CANCER [facility] 06:56:00 SCREENING [code = Hospital BREAST CANCER SCREENING] Future Scheduled 2021-10-13 COLONOSCOPY [facility] 06:56:00 SCREENING [code = Hospital COLONOSCOPY SCREENING] Future Scheduled 2021-10-13 INFLUENZA VACCINE [facility] 06:56:00 [code = INFLUENZA Hospital VACCINE] Future Scheduled 2021-09-21 COVID-19 VACCINE (1) [facility] 10:27:20 [code = COVID-19 Hospital VACCINE (1)] Future Scheduled 2021-09-21 Pneumococcal [facility] 10:27:20 Vaccine: [facility] (0 to 5 Years) and At-Risk Patients (6 to 64 Years) (1 - PCV) [code = Pneumococcal Vaccine: Pediatrics (0 to 5 Years) and At-Risk Patients (6 to 64 Years) (1 - PCV)] Future Scheduled 2021-09-21 [facility] 10:27:20 screening Hospital (procedure) [code = 153911546] Future Scheduled 2021-09-21 SHINGLES VACCINES (1 [facility] 10:27:20 of 2) [code = Hospital SHINGLES VACCINES (1 of 2)] Future Scheduled 2021-09-21 [facility] 10:27:20 malignant neoplasm [facility] of cervix (procedure) [code = 998881583] Future Scheduled 2021-09-21 BREAST CANCER [facility] 10:27:20 SCREENING [code = Hospital BREAST CANCER SCREENING] Future Scheduled 2021-09-21 COLONOSCOPY [facility] 10:27:20 SCREENING [code = Hospital COLONOSCOPY SCREENING] Future Scheduled 2021-09-21 INFLUENZA VACCINE [facility] 10:27:20 [code = INFLUENZA Hospital VACCINE] Future Scheduled 2021-08-25 INFLUENZA VACCINE [facility] 09:02:31 [code = INFLUENZA Hospital VACCINE] Future Scheduled 2021-08-25 COVID-19 VACCINE (1) [facility] 09:02:31 [code = COVID-19 Hospital VACCINE (1)] Future Scheduled 2021-08-25 Pneumococcal [facility] 09:02:31 Vaccine: [facility] (0 to 5 Years) and At-Risk Patients (6 to 64 Years) (1 - PCV) [code = Pneumococcal Vaccine: Pediatrics (0 to 5 Years) and At-Risk Patients (6 to 64 Years) (1 - PCV)] Future Scheduled 2021-08-25 [facility] C [facility] 09:02:31 screening Hospital (procedure) [code = 397562754] Future Scheduled 2021-08-25 SHINGLES VACCINES (1 [facility] 09:02:31 of 2) [code = Hospital SHINGLES VACCINES (1 of 2)] Future Scheduled 2021-08-25 [facility] 09:02:31 malignant neoplasm [facility] of cervix (procedure) [code = 840847444] Future Scheduled 2021-08-25 BREAST CANCER [facility] 09:02:31 SCREENING [code = Hospital BREAST CANCER SCREENING] Future Scheduled 2021-08-25 COLONOSCOPY [facility] 09:02:31 SCREENING [code = Hospital COLONOSCOPY SCREENING] Future Scheduled 2021-08-25 INFLUENZA VACCINE [facility] 09:02:31 [code = INFLUENZA Hospital VACCINE] Future Scheduled 2021-08-25 COVID-19 VACCINE (1) [facility] 09:02:31 [code = COVID-19 Hospital VACCINE (1)] Future Scheduled 2021-08-25 Pneumococcal [facility] 09:02:31 Vaccine: [facility] (0 to 5 Years) and At-Risk Patients (6 to 64 Years) (1 - PCV) [code = Pneumococcal Vaccine: Pediatrics (0 to 5 Years) and At-Risk Patients (6 to 64 Years) (1 - PCV)] Future Scheduled 2021-08-25 Hepatitis C [facility] 09:02:31 screening [facility] (procedure) [code = 326723448] Future Scheduled 2021-08-25 SHINGLES VACCINES (1 [facility] 09:02:31 of 2) [code = Hospital SHINGLES VACCINES (1 of 2)] Future Scheduled 2021-08-25 [facility] 09:02:31 malignant neoplasm [facility] of cervix (procedure) [code = 008233528] Future Scheduled 2021-08-25 BREAST CANCER [facility] 09:02:31 SCREENING [code = Hospital BREAST CANCER SCREENING] Future Scheduled 2021-08-25 COLONOSCOPY [facility] 09:02:31 SCREENING [code = Hospital COLONOSCOPY SCREENING] Future Scheduled 2021-08-25 INFLUENZA VACCINE [facility] 09:02:31 [code = INFLUENZA Hospital VACCINE] Future Scheduled 2021-08-25 COVID-19 VACCINE (1) [facility] 09:02:31 [code = COVID-19 Hospital VACCINE (1)] Future Scheduled 2021-08-25 Pneumococcal [facility] 09:02:31 Vaccine: [facility] (0 to 5 Years) and At-Risk Patients (6 to 64 Years) (1 - PCV) [code = Pneumococcal Vaccine: Pediatrics (0 to 5 Years) and At-Risk Patients (6 to 64 Years) (1 - PCV)] Future Scheduled 2021-08-25 [facility] 09:02:31 screening Hospital (procedure) [code = 143085903] Future Scheduled 2021-08-25 COVID-19 VACCINE (1) [facility] 09:02:31 [code = COVID-19 Hospital VACCINE (1)] Future Scheduled 2021-08-25 SHINGLES VACCINES (1 [facility] 09:02:31 of 2) [code = Hospital SHINGLES VACCINES (1 of 2)] Future Scheduled 2021-08-25 [facility] 09:02:31 malignant neoplasm Hospital [facility] cervix (procedure) [code = 052638641] Future Scheduled 2021-08-25 BREAST CANCER [facility] 09:02:31 SCREENING [code = Hospital BREAST CANCER SCREENING] Future Scheduled 2021-08-25 COLONOSCOPY [facility] 09:02:31 SCREENING [code = Hospital COLONOSCOPY SCREENING] Future Scheduled 2021-08-25 INFLUENZA VACCINE [facility] 09:02:31 [code = INFLUENZA Hospital VACCINE] Future Scheduled 2021-08-25 COVID-19 VACCINE (1) [facility] 09:02:31 [code = COVID-19 Hospital VACCINE (1)] Future Scheduled 2021-08-25 Pneumococcal [facility] 09:02:31 Vaccine: [facility] (0 to 5 Years) and At-Risk Patients (6 to 64 Years) (1 - PCV) [code = Pneumococcal Vaccine: Pediatrics (0 to 5 Years) and At-Risk Patients (6 to 64 Years) (1 - PCV)] Future Scheduled 2021-08-25 [facility] 09:02:31 screening Hospital (procedure) [code = 922925030] Future Scheduled 2021-08-25 SHINGLES VACCINES (1 [facility] 09:02:31 of 2) [code = Hospital SHINGLES VACCINES (1 of 2)] Future Scheduled 2021-08-25 [facility] 09:02:31 malignant neoplasm Hospital of cervix (procedure) [code = 693290776] Future Scheduled 2021-08-25 Pneumococcal [facility] 09:02:31 Vaccine: [facility] (0 to 5 Years) and At-Risk Patients (6 to 64 Years) (1 - PCV) [code = Pneumococcal Vaccine: Pediatrics (0 to 5 Years) and At-Risk Patients (6 to 64 Years) (1 - PCV)] Future Scheduled 2021-08-25 BREAST CANCER [facility] 09:02:31 SCREENING [code = Hospital BREAST CANCER SCREENING] Future Scheduled 2021-08-25 [facility]OSCOPY [facility] 09:02:31 SCREENING [code = Hospital COLONOSCOPY SCREENING] Future Scheduled 2021-08-25 INFLUENZA VACCINE [facility] 09:02:31 [code = INFLUENZA Hospital VACCINE] Future Scheduled 2021-08-25 COVID-19 VACCINE (1) [facility] 09:02:31 [code = COVID-19 Hospital VACCINE (1)] Future Scheduled 2021-08-25 P[facility]ococcal [facility] 09:02:31 Vaccine: [facility] (0 to 5 Years) and At-Risk Patients (6 to 64 Years) (1 - PCV) [code = Pneumococcal Vaccine: Pediatrics (0 to 5 Years) and At-Risk Patients (6 to 64 Years) (1 - PCV)] Future Scheduled 2021-08-25 [facility] 09:02:31 screening Hospital (procedure) [code = 075974846] Future Scheduled 2021-08-25 SHINGLES VACCINES (1 [facility] 09:02:31 of 2) [code = Hospital SHINGLES VACCINES (1 of 2)] Future Scheduled 2021-08-25 [facility] 09:02:31 malignant neoplasm [facility] of cervix (procedure) [code = 967599183] Future Scheduled 2021-08-25 BREAST CANCER [facility] 09:02:31 SCREENING [code = Hospital BREAST CANCER SCREENING] Future Scheduled 2021-08-25 [facility]OSCOPY [facility] 09:02:31 SCREENING [code = Hospital COLONOSCOPY SCREENING] Future Scheduled 2021-08-25 [facility] 09:02:31 screening Hospital (procedure) [code = 631843454] Future Scheduled 2021-08-25 INFLUENZA VACCINE [facility] 09:02:31 [code = INFLUENZA Hospital VACCINE] Future Scheduled 2021-08-25 COVID-19 VACCINE (1) [facility] 09:02:31 [code = COVID-19 Hospital VACCINE (1)] Future Scheduled 2021-08-25 Pneumococcal [facility] 09:02:31 Vaccine: [facility] (0 to 5 Years) and At-Risk Patients (6 to 64 Years) (1 - PCV) [code = Pneumococcal Vaccine: Pediatrics (0 to 5 Years) and At-Risk Patients (6 to 64 Years) (1 - PCV)] Future Scheduled 2021-08-25 [facility] 09:02:31 screening Hospital (procedure) [code = 911294843] Future Scheduled 2021-08-25 SHINGLES VACCINES (1 [facility] 09:02:31 of 2) [code = Hospital SHINGLES VACCINES (1 of 2)] Future Scheduled 2021-08-25 [facility] 09:02:31 malignant neoplasm Hospital [facility] cervix (procedure) [code = 749091542] Future Scheduled 2021-08-25 BREAST CANCER [facility] 09:02:31 SCREENING [code = Hospital BREAST CANCER SCREENING] Future Scheduled 2021-08-25 COLONOSCOPY [facility] 09:02:31 SCREENING [code = Hospital COLONOSCOPY SCREENING] Future Scheduled 2021-08-25 INFLUENZA VACCINE [facility] 09:02:31 [code = INFLUENZA Hospital VACCINE] Future Scheduled 2021-08-25 COVID-19 VACCINE (1) [facility] 09:02:31 [code = COVID-19 Hospital VACCINE (1)] Future Scheduled 2021-08-25 SHINGLES VACCINES (1 [facility] 09:02:31 of 2) [code = Hospital SHINGLES VACCINES (1 of 2)] Future Scheduled 2021-08-25 Pneumococcal [facility] 09:02:31 Vaccine: [facility] Hospital (0 to 5 Years) and At-Risk Patients (6 to 64 Years) (1 - PCV) [code = Pneumococcal Vaccine: Pediatrics (0 to 5 Years) and At-Risk Patients (6 to 64 Years) (1 - PCV)] Future Scheduled 2021-08-25 [facility] 09:02:31 screening Hospital (procedure) [code = 630091059] Future Scheduled 2021-08-25 SHINGLES VACCINES (1 [facility] 09:02:31 of 2) [code = Hospital SHINGLES VACCINES (1 of 2)] Future Scheduled 2021-08-25 [facility] 09:02:31 malignant neoplasm Hospital of cervix (procedure) [code = 095985905] Future Scheduled 2021-08-25 BREAST CANCER [facility] 09:02:31 SCREENING [code = Hospital BREAST CANCER SCREENING] Future Scheduled 2021-08-25 [facility]OSCOPY [facility] 09:02:31 SCREENING [code = Hospital COLONOSCOPY SCREENING] Future Scheduled 2021-08-25 INFLUENZA VACCINE [facility] 09:02:31 [code = INFLUENZA Hospital VACCINE] Future Scheduled 2021-08-25 [facility] 09:02:31 malignant neoplasm Hospital [facility] cervix (procedure) [code = 634556832] Future Scheduled 2021-08-25 BREAST CANCER [facility] 09:02:31 SCREENING [code = Hospital BREAST CANCER SCREENING] Future Scheduled 2021-08-25 [facility]COPY [facility] 09:02:31 SCREENING [code = Hospital COLONOSCOPY SCREENING] Future Scheduled 2021-03-[address] [facility] 00:[facility]:00 WELLNESS (YEAR 2 or Medical Center FIRST YEAR if no IPPE) [code = MEDICARE ANNUAL WELLNESS (YEAR 2 or FIRST YEAR if no IPPE)] Future Scheduled 2021-03-[address] [...] C enter of breast (procedure) [code = 560077066] Future Scheduled 2020-11-[address] [facility] 00:[facility]:00 malignant neoplasm Medical C enter of breast (procedure) [code = 756040775] Future Scheduled 2020-11-[address] [facility] 00:00:00 malignant neoplasm Medical C enter of breast (procedure) [code = 004184294] Future Scheduled 2020-11-[address] [facility] 00:00:00 malignant neoplasm Medical C enter of breast (procedure) [code = 872607347] Future Scheduled 2020-06-23 [facility]:00 malignant neoplasm of cervix (procedure) [code = 441082971] Future Scheduled 2020-06-23 [facility] 00:00:00 malignant neoplasm of cervix (procedure) [code = 312099349] Future Scheduled 2020-06-23 [facility] 00:00:00 malignant neoplasm of cervix (procedure) [code = 997434740] Future Scheduled 2020-06-23 [facility] 00:00:00 malignant neoplasm of cervix (procedure) [code = 872024126] Future Scheduled 2020-06-23 [facility] 00:00:00 malignant neoplasm of cervix (procedure) [code = 378528946] Future Scheduled 2020-06-23 [facility] 00:00:00 malignant neoplasm of cervix (procedure) [code = 683396005] Future Scheduled 2020-06-23 [facility] 00:00:00 malignant neoplasm of cervix (procedure) [code = 921654705] Future Scheduled 2020-06-23 [facility] 00:00:00 malignant neoplasm of cervix (procedure) [code = 722987288] Future Scheduled 2020-06-23 [facility] 00:00:00 malignant neoplasm of cervix (procedure) [code = 551291439] Future Scheduled 2020-06-23 [facility] 00:00:00 malignant neoplasm of cervix (procedure) [code = 019379526] Future Scheduled 2020-06-23 [facility] 00:00:00 malignant neoplasm of cervix (procedure) [code = 472392238] Future Scheduled 2020-06-23 [facility] 00:00:00 malignant neoplasm of cervix (procedure) [code = 929833006] Future Scheduled 2019-03-[address] [facility] 00:[facility]:00 malignant neoplasm Medical C enter of colon (procedure) [code = 703809551] Future Scheduled 2019-03-[address] [facility] 00:00:00 malignant neoplasm Medical C enter of colon (procedure) [code = 200462368] Future Scheduled 2019-03-[address] [facility] 00:00:00 malignant neoplasm Medical C enter of colon (procedure) [code = 264299402] Future Scheduled 2019-03-[address] [facility] 00:00:00 malignant neoplasm Medical C enter of colon (procedure) [code = 045444534] Future Scheduled 2019-03-[address] [facility] 00:00:00 malignant neoplasm Medical C enter of colon (procedure) [code = 726030969] Future Scheduled 2019-03-[address] [facility] 00:00:00 malignant neoplasm Medical C enter of colon (procedure) [code = 285016997] Future Scheduled 2018-11-[address] [...] malignant neoplasm of colon (procedure) [code = 825311433] Future Scheduled 2017-04-21 [facility] 00:[facility]:00 malignant neoplasm of colon (procedure) [code = 363030208] Future Scheduled 2017-04-21 [facility] 00:00:00 malignant neoplasm of colon (procedure) [code = 782193382] Future Scheduled 2017-04-21 [facility] 00:00:00 malignant neoplasm of colon (procedure) [code = 302869060] Future Scheduled 2017-04-21 [facility] 00:00:00 malignant neoplasm of colon (procedure) [code = 211023807] Future Scheduled 2017-04-21 [facility] 00:00:00 malignant neoplasm of colon (procedure) [code = 217573066] Future Scheduled 2017-04-21 [facility] 00:00:00 malignant neoplasm of colon (procedure) [code = 037237490] Future Scheduled 2017-04-21 [facility] 00:00:00 malignant neoplasm of colon (procedure) [code = 152070568] Future Scheduled 2017-04-21 [facility] 00:00:00 malignant neoplasm of colon (procedure) [code = 574247350] Future Scheduled 2017-04-21 [facility] 00:00:00 malignant neoplasm of colon (procedure) [code = 911205894] Future Scheduled 2017-04-21 [facility] 00:00:00 malignant neoplasm of colon (procedure) [code = 690010031] Future Scheduled 2017-04-21 [facility] 00:00:00 malignant neoplasm of colon (procedure) [code = 461042145] Future Scheduled 2016-01-[address] [facility] 00:00:00 0-64 YRS (2 - PPSV23 Medical Center or PCV20) [code = PNEUMOCOCCAL VACCINE 0-64 YRS (2 - PPSV23 or PCV20)] Future Scheduled 2016-01-[address] [facility] 2[facility] [code = [facility] SHINGLES VACCINES (1 of 2)] Future Scheduled 2013 SHINGLES VACCINES ([address] [facility] 00:00:00 of 2) [code = [facility] SHINGLES VACCINES (1 of 2)] Future Scheduled 2013 SHINGLES VACCINES ([address] [facility] 00:00:00 of 2) [code = [facility] SHINGLES VACCINES (1 of 2)] Future Scheduled 1993 [facility] 00:00:00 malignant neoplasm of cervix (procedure) [code = 643828256] Future Scheduled 1993 Scre[facility] for [facility] 00:00:00 malignant neoplasm of cervix (procedure) [code = 488965236] Future Scheduled 1993 [facility] 00:00:00 malignant neoplasm of cervix (procedure) [code = 897730738] Future Scheduled 1993 [facility] 00:00:00 malignant neoplasm of cervix (procedure) [code = 330911207] Future Scheduled 1993 [facility] 00:00:00 malignant neoplasm of cervix (procedure) [code = 448590458] Future Scheduled 1993 Scre[facility] 00:00:00 malignant neoplasm of cervix (procedure) [code = 241437626] Future Scheduled 1993 [facility] 00:00:00 malignant neoplasm of cervix (procedure) [code = 103329351] Future Scheduled 1993 [facility] 00:00:00 malignant neoplasm of cervix (procedure) [code = 893232699] Future Scheduled 1993 Scre[facility] 00:00:00 malignant neoplasm of cervix (procedure) [code = 308359974] Future Scheduled 1993 [facility] 00:00:00 malignant neoplasm of cervix (procedure) [code = 863703286] Future Scheduled 1993 [facility]ening for [facility] 00:[facility]:00 malignant neoplasm of cervix (procedure) [code = 966559460] Future Scheduled 1993 [facility] for [facility] 00:00:00 malignant neoplasm of cervix (procedure) [code = 776274352] Future Scheduled [address] [facility] 00:[facility] malignant neoplasm Medical C enter of cervix (procedure) [code = 872357592] Future Scheduled [address] [facility] 00:00:00 malignant neoplasm Medical C enter of cervix (procedure) [code = 472022057] Future Scheduled [address] [facility] 00:00:00 malignant neoplasm Medical C enter of cervix (procedure) [code = 432212962] Future Scheduled [address] [facility] 00:00:00 malignant neoplasm Medical C enter of cervix (procedure) [code = 232160157] Future Scheduled 1982 DTAP/TDAP/TD [facility] DTAP/TDAP/TD VACCINES (1 - Tdap)] Future Scheduled [address] [facility] 00:00:00 [facility]ing [facility] Cent[facility] r Screening (12+) [code = Tobacco Cessation Counseling and Screening (12+)] Future Scheduled [address] EYE EXAM [facility] 00:00:00 [code = DIABETIC EYE Medical Center EXAM] Future Scheduled [address] [facility] examination Medical Center (regime/therapy) [code = 067957813] Future Scheduled 1973 Urine screening for [facility] 00:00:00 protein (procedure) Medical Center [code = 913052365] Future Scheduled 1973 DIABETIC EYE EXAM [facility] 00:00:00 [code = DIABETIC EYE Medical Center EXAM] Future Scheduled [address] [facility] 00:[facility] examination Medical Center (regime/therapy) [code = 100413791] Future Scheduled 1973 Urine screening for [facility] 00:00:00 protein (procedure) Medical Center [code = 555417611] Future Scheduled 1973 DIABETIC EYE EXAM [facility] 00:00:00 [code = DIABETIC EYE Medical Center EXAM] Future Scheduled [address] [facility] 00:[facility]:00 examination Medical Center (regime/therapy) [code = 304655633] Future Scheduled 1973 Urine screening for [facility] 00:00:00 protein (procedure) Medical Center [code = 152789360] Future Scheduled 1973 DIABETIC EYE EXAM [facility] 00:00:00 [code = DIABETIC EYE Medical Center EXAM] Future Scheduled [address] [facility] 00:[facility]:00 examination Medical Center (regime/therapy) [code = 725889804] Future Scheduled 1973 Urine screening for [facility] 00:00:00 protein (procedure) Medical Center [code = 292158896] Future Scheduled 1968 COVID-19 [facility] [...] Vaccine (#1)] Future Scheduled 1968 COVID-19 Vaccine [facility] 00:00:00 (#1) [code = COVID-19 Vaccine (#1)] Future Scheduled 1968 COVID-19 Vaccine [facility] 00:00:00 (#1) [code = COVID-19 Vaccine (#1)] Future Scheduled 1968 COVID-19 Vaccine [facility] 00:00:00 (#1) [code = COVID-19 Vaccine (#1)] Future Scheduled 1968 COVID-19 VACCINE (1) [facility] 00:00:00 [code = COVID-[address] VACCINE (1)] Future Scheduled 1968 COVID-19 VACCINE (1) [facility] 00:00:00 [code = COVID-[address] VACCINE (1)] Future Scheduled 1963 COVID-19 Vaccine [facility] 00:00:00 (#1) [code = COVID-19 Vaccine (#1)] Future Scheduled 1963 COVID-19 Vaccine [facility] 00:00:00 (#1) [code = COVID-19 Vaccine (#1)] Future Scheduled 1963 COVID-19 Vaccine [facility] 00:00:00 (#1) [code = COVID-19 Vaccine (#1)] Future Scheduled 1963 COVID-[address] [facility] 00:00:00 (#1) [code = [facility] Center COVID-19 VACCINE (#1)] Future Scheduled 1963 COVID-19 Vaccine [facility] 00:00:00 (#1) [code = COVID-19 Vaccine (#1)] Future Scheduled 1963 COVID-[address] [facility] 00:00:00 (#1) [code = Medical Center COVID-19 VACCINE (#1)] Future Scheduled 1963 Fluoride Varnish [facility] Test 00:00:00 [code = Fluoride Varnish] Future Scheduled [address] [facility] 00[facility]00:00 (combo) [code = CT Medical C enter Colonography (combo)] Future Scheduled [address] [facility] 00:00:00 malignant neoplasm Medical C enter of colon (procedure) [code = 929841677] Future Scheduled 1963 Sigmoidoscopy [code [facility] 00:00:00 = Sigmoidoscopy] [facility] Future Scheduled [address] [facility] 00:00:00 (combo) [code = CT Medical C enter Colonography (combo)] Future Scheduled [address] [facility] 00:00:00 malignant neoplasm Medical C enter of colon (procedure) [code = 284305485] Future Scheduled [address] [facility] 00:00:00 malignant neoplasm Medical C enter of colon (procedure) [code = 417108445] Future Scheduled 1963 Sigmoidoscopy [code [facility] 00:00:00 = Sigmoidoscopy] [facility] Future Scheduled [address] [facility] 00:00:00 (combo) [code = CT Medical C enter Colonography (combo)] Future Scheduled [address] [facility] 00:00:00 malignant neoplasm Medical C enter of colon (procedure) [code = 558516103] Future Scheduled [address] [facility] 00:00:00 malignant neoplasm Medical C enter of colon (procedure) [code = 464838876] Future Scheduled 1963 Sigmoidoscopy [code [facility] 00:00:00 = Sigmoidoscopy] [facility] Future Scheduled [address] [facility] 00:00:00 (combo) [code = CT Medical C enter Colonography (combo)] Future Scheduled [address] [facility] 00:00:00 malignant neoplasm Medical C enter of colon (procedure) [code = 119111544] Future Scheduled 1963 Sigmoidoscopy [code [facility] 00:00:00 = Sigmoidoscopy] [facility] Future Scheduled ORT - XR SHOULDER Ordered: [facility] Test BILAT 4V (CHARGE 11/13/2019 of Medicine ONLY) [code = 31822] Future Scheduled ORT - XR SHOULDER Ordered: [facility] Test BILAT 4V (CHARGE 12/25/2019 of Medicine ONLY) [code = 80718] Future Scheduled COLON CANCER [facility] SCREENING: of Medicine COLONOSCOPY [code = COLON CANCER SCREENING: COLONOSCOPY] Future Scheduled MAMMOGRAM ANNUAL [facility] Test [code = MAMMOGRAM of Medicin e ANNUAL] Future Scheduled TETANUS SHOT (ADULT) [employer] [facility] [code = TETANUS SHOT of Medi cine (ADULT)] Future Scheduled Diabetic foot [facility] [facility] examination of Medicine (regime/therapy) [code = 941921832] Future Scheduled ANNUAL DIABETIC [facility] Test RETINOPATHY of Medicine SCREENING [code = ANNUAL DIABETIC RETINOPATHY SCREENING] Future Scheduled BMI FOLLOW UP PLAN [employer] Test [code = BMI FOLLOW of Medici ne UP PLAN] Future Scheduled HEPATITIS C [facility] Test SCREENING [code = of Medicin e HEPATITIS C SCREENING] Future Scheduled HIV SCREENING [code [employer] [facility] = HIV SCREENING] of Medicine Future Scheduled COLON CANCER [facility] [employer] SCREENING: of Medicine COLONOSCOPY [code = COLON CANCER SCREENING: COLONOSCOPY] Future Scheduled CERVICAL CANCER [facility] Test SCREENING 3 YEAR of Medicine FOLLOW UP [code = CERVICAL CANCER SCREENING 3 YEAR FOLLOW UP] Future Scheduled MEDICARE AWV [facility] Test (Initial) [code = of Medicin e MEDICARE AWV (Initial)] Future Scheduled ZOSTER VACCINE (1 of [employer] Test 2) [code = ZOSTER of Medicin e VACCINE (1 of 2)] Future Scheduled FLU VACCINE > 6 [facility] Test MONTHS [code = FLU of Medici ne VACCINE > 6 MONTHS] Future Scheduled MAMMOGRAM ANNUAL [facility] Test [code = MAMMOGRAM of Medicin e ANNUAL] Future Scheduled TETANUS SHOT (ADULT) [employer] Test [code = TETANUS SHOT of Medi cine (ADULT)] Future Scheduled BMI FOLLOW UP PLAN [employer] Test [code = BMI FOLLOW of Medici ne UP PLAN] Future Scheduled ORT - XR SHOULDER Ordered: [facility] Test BILAT 4V (CHARGE 01/22/2020 of Medicine ONLY) [code = 11629] Future Scheduled ORT - XR ELBOW LEFT Ordered: [employer] [facility] 3V (CHARGE ONLY) 01/22/2020 of Medicine [code = 24624] Future Scheduled COLON CANCER [facility] Test SCREENING: of Medicine COLONOSCOPY [code = COLON CANCER SCREENING: COLONOSCOPY] Future Scheduled MAMMOGRAM ANNUAL [facility] Test [code = MAMMOGRAM of Medicin e ANNUAL] Future Scheduled TETANUS SHOT (ADULT) [employer] Test [code = TETANUS SHOT of Medi cine (ADULT)] Future Scheduled Diabetic foot [employer] [facility] examination of Medicine (regime/therapy) [code = 868641697] Future Scheduled ANNUAL DIABETIC [facility] Test RETINOPATHY of Medicine SCREENING [code = ANNUAL DIABETIC RETINOPATHY SCREENING] Future Scheduled BMI FOLLOW UP PLAN [employer] Test [code = BMI FOLLOW of Medici ne UP PLAN] Future Scheduled HEPATITIS C [facility] [employer] SCREENING [code = of Medicin e HEPATITIS C SCREENING] Future Scheduled HEPATITIS C [facility] [employer] Test SCREENING [code = of Medicin e HEPATITIS C SCREENING] Future Scheduled HIV SCREENING [code [employer] Test = HIV SCREENING] of Medicine Future Scheduled CERVICAL CANCER [facility] Test SCREENING 3 YEAR of Medicine FOLLOW UP [code = CERVICAL CANCER SCREENING 3 YEAR FOLLOW UP] Future Scheduled MEDICARE AWV [facility] Test (Initial) [code = of Medicin e MEDICARE AWV (Initial)] Future Scheduled ZOSTER VACCINE (1 of [employer] Test 2) [code = ZOSTER of Medicin e VACCINE (1 of 2)] Future Scheduled FLU VACCINE > 6 Postponed from [facility] Test MONTHS [code = FLU 10/25/2019 of Medici ne VACCINE > 6 MONTHS] (Postpone Reason: Patient declined today) Future Scheduled HIV SCREENING [code [employer] [facility] = HIV SCREENING] of Medicine Future Scheduled CERVICAL CANCER [facility] Test SCREENING 3 YEAR of Medicine FOLLOW UP [code = CERVICAL CANCER SCREENING 3 YEAR FOLLOW UP] Future Scheduled MEDICARE AWV [facility] (Initial) [code = of Medicin e MEDICARE AWV (Initial)] Future Scheduled ZOSTER VACCINE (1 of [employer] Test 2) [code = ZOSTER of Medicin e VACCINE (1 of 2)] Future Scheduled FLU VACCINE > 6 [facility] Test MONTHS [code = FLU of Medici ne VACCINE > 6 MONTHS] Future Scheduled ORT - XR SHOULDER Ordered: [facility] Test BILAT 4V (CHARGE 11/27/2019 of Medicine ONLY) [code = 72938] Future Scheduled COLON CANCER [facility] Test SCREENING: of Medicine COLONOSCOPY [code = COLON CANCER SCREENING: COLONOSCOPY] Future Scheduled MAMMOGRAM ANNUAL [facility] Test [code = MAMMOGRAM of Medicin e ANNUAL] Future Scheduled TETANUS SHOT (ADULT) [employer] Test [code = TETANUS SHOT of Medi cine (ADULT)] Future Scheduled Diabetic foot [facility] Test examination of Medicine (regime/therapy) [code = 574298724] Future Scheduled ANNUAL DIABETIC [facility] [employer] RETINOPATHY of Medicine SCREENING [code = ANNUAL DIABETIC RETINOPATHY SCREENING] Future Scheduled BMI FOLLOW UP PLAN [employer] Test [code = BMI FOLLOW of Medici ne UP PLAN] Future Scheduled HEPATITIS C [facility] Test SCREENING [code = of Medicin e HEPATITIS C SCREENING] Future Scheduled HIV SCREENING [code [employer] Test = HIV SCREENING] of Medicine Future Scheduled CERVICAL CANCER [facility] Test SCREENING 3 YEAR of Medicine FOLLOW UP [code = CERVICAL CANCER SCREENING 3 YEAR FOLLOW UP] Future Scheduled MEDICARE AWV [facility] Test (Initial) [code = of Medicin e MEDICARE AWV (Initial)] Future Scheduled ZOSTER VACCINE (1 of [employer] Test 2) [code = ZOSTER of Medicin e VACCINE (1 of 2)] Future Scheduled FLU VACCINE > 6 [facility] Test MONTHS [code = FLU of Medici ne VACCINE > [address] MONTHS] Future Scheduled CT SHOULDER RIGHT WO 1 Occurrences [facility] Test CONTRAST [code = starting of Medicine 62817] 11/13/2019 until 06/12/2020 Encounters Start End Encounter Admission Attending Care Care Encounter Source Date/Time Date/Time Type Type Clinicians Facility Department ID 2022-01-31 Outpatient [facility] [id number] [place] 10:40:55 Health 2022-01-26 Outpatient [facility] [id number] [place] 16:42:22 [id number] Health 2021-12-06 Outpatient [address] [facility] ENCPL CVA [id number] [facility] 13:41:36 jordan, 0913 [facility] [place] 2021-12-02 Outpatient 3 [id number] ENCPL CVA [id number] [facility] 11:23:23 0909 [facility] [place] 2021-11-30 Outpatient 3 [id number] ENCPL CVA [id number] [facility] 08:22:36 0907 [facility] [place] 2021-11-29 Outpatient 3 [id number] ENCPL REF [id number] [facility] 14:03:26 0906 [facility] [place] 2021-09-05 Outpatient ZANE BAIG, SLE Surgery [id number] [facility] 08:47:40 RIAZ 2021-08-30 Outpatient 3 [id number] ENCSL [place] [id number] [facility] 17:17:47 [facility] [place] 2021-08-15 Outpatient 3 [id number] ENCSL REF [id number] [facility] 11:40:53 [facility] [place] 2021-04-22 Outpatient ANANTH [facility] [id number] [place] 15:16:49 Critical access hospital 2021-04-20 Outpatient Rey, STLMLC STLMLC [id number] Common 12:32:19 [facility] 9[address]24 [facility] 2021-04-20 Outpatient Rey, STLMLC STLMLC [id number] Common 12:22:07 [facility] 15594 [facility] 2021-04-20 Outpatient Rey, STLMLC STLMLC [id number] Common 12:18:27 [facility] 72747 [facility] 2021-04-20 Outpatient Rey, STLMLC STLMLC [id number] Common 12:05:36 Jose 29533 [facility] 2021-04-20 Outpatient Rey, STLMLC STLMLC [id number] Common 11:56:16 Jose 49332 [facility] 2021-04-20 Outpatient Rey, STLMLC STLMLC [id number] Common 11:53:33 Jose 89613 [facility] 2021-04-20 Outpatient Rey, STLMLC STLMLC [id number] Common 11:48:09 Jose 88140 [facility] 2021-04-20 Outpatient Rey, STLMLC STLMLC [id number] Common 11:46:26 Jose 42413 [facility] 2021-04-20 Outpatient Rey, STLMLC STLMLC [id number] Common 11:42:27 Jose 73690 [facility] 2021-04-20 Outpatient Rey, STLMLC STLMLC [id number] Common 11:40:16 Jose 09824 [facility] 2021-04-20 Outpatient Rey, STLMLC STLC [id number] Common 11:38:56 Jose 10518 [facility] 2021-04-20 Outpatient Rey, STLMLC STLMLC [id number] Common 11:17:01 Jose 19916 [facility] 2021-04-20 Outpatient Rey, STLMLC STLC [id number] Common 11:16:49 Jose 54471 [facility] 2021-04-20 Outpatient Rey, STLMLC STLC [id number] Common 11:14:02 Jose 04291 [facility] 2021-01-01 [facility] [id number] [facility] 20:20:01 Med 2022-06-06 2022-06-06 [facility] [id number] [place] 10:00:00 10:00:00 Critical access hospital 2022-02-15 2022-02-15 [facility] [id number] [place] 09:00:00 09:00:00 [facility] 2022-02-06 2022-02-06 Telephone Jann, 1.2.840.1 [id number] Methodi 00:00:00 00:00:00 Gallito 13015.1.1 571 [facility]-i 3.430.2.7 Hosp josh .3.942352 l .8 2022-02-06 2022-02-06 Telephone Jann, 1.2.840.1 [id number] Methodi 00:00:00 00:00:00 Gallito 51104.1.1 571 [facility] josh .3.836901 l .8 2022-01-31 2022-01-31 Office ANANTH [facility] 6410 [id number] [id number] [place] 10:30:00 12:02:52 Visit JOSE GOMEZ 350.1.13.58 [facility] 9.2.7.2.686 [id number] 8 2021-12-07 2021-12-29 Inpatient 3 [facility] ENCPL CVA [id number] [facility] 19:35:00 16:20:00 johnioana 0914 [facility] itation [facility] 2021-12-23 2021-12-23 Outpatient Deja, HCAPM LABO [id number] [facility] 20:05:00 20:05:00 Priti 64 [facility] 2021-12-23 2021-12-23 Outpatient Deja, HCAPM LABO [id number] [facility] 20:05:00 20:05:00 [facility] 64 [facility] 2021-12-22 2021-12-22 Outpatient Shirley HCAPM LABO [id number] [facility] 00:30:00 00:30:00 Carolann Chavez [facility] 2021-12-02 2021-12-02 [facility] [id number] [place] 10:30:00 10:30:00 Critical access hospital 2021-11-21 2021-11-21 Outpatient [facility]Tod PRIV PRIV 243 [id number] [facility] 00:00:00 00:00:00 d_J [id number] Medica l 2021-11-16 2021-11-16 Outpatient [facility]Tod PRIV PRIV 243 [id number] [facility] 00:00:00 00:00:00 d_J [id number] Medica l 2021-11-11 2021-11-11 Outpatient [facility]Tod PRIV PRIV 243 [id number] [facility] 00:00:00 00:00:00 d_J [id number] Medica l 2021-11-01 2021-11-01 Outpatient [facility]Tod PRIV PRIV 243 [id number] [facility] 00:00:00 00:00:00 d_J [id number] Medica l 2021-11-01 2021-11-01 Estelle [facility] [id number] [facility] 00:00:00 00:00:00 RAÚL Schneider: Health - Med ical [address] [address] , Ph. 2021-11-01 2021-11-01 Outpatient Wyatt, PRIV PRIV [id number] 00:00:00 00:00:00 Estelle [id number] 2021-10-28 2021-10-28 Outpatient [facility]Tod PRIV PRIV 243 [id number] [facility] 00:00:00 00:00:00 d_J [id number] Medica l 2021-10-27 2021-10-27 Outpatient [facility]Tod PRIV PRIV 243 [id number] [facility] 00:00:00 00:00:00 d_J [id number] Medica l 2021-10-25 2021-10-25 Outpatient [facility]Tod PRIV PRIV 243 [id number] [facility] 00:00:00 00:00:00 d_J [id number] Medica l 2021-10-25 2021-10-25 Estelle [facility] [id number] [facility] 00:00:00 00:00:00 RAÚL Schneider: Health - Med ical [address] [address] , Ph. 2021-10-25 2021-10-25 Outpatient Wyatt PRIV PRIV [id number] 00:00:00 00:00:00 Estelle [id number] 2021-10-21 2021-10-21 Outpatient [facility]Tod PRIV PRIV 243 [id number] [facility] 00:00:00 00:00:00 d_J [id number] Medica l 2021-10-20 2021-10-20 Outpatient [facility]Tod PRIV PRIV 243 [id number] [facility] 00:00:00 00:00:00 d_J [id number] Medica l 2021-10-20 2021-10-20 Sergio Up [facility]IV [facility] [id number] [facility] 00:00:00 00:00:00 Alfredo [facility] - Med ical MD: [address] [place] [address] , Ph. 2021-10-20 2021-10-20 Outpatient Alfredo, PRIV PRIV [id number] 00:00:00 00:00:00 Sergio Up [id number] 2021-10-18 2021-10-18 Outpatient [facility]Tod PRIV PRIV 243 [id number] [facility] 03:56:00 03:56:00 d_J [id number] Medica l 2021-10-18 2021-10-18 Estelle [facility] [id number] [facility] 00:00:00 00:00:00 RAÚL Schneider: Health - Med ical [address] [address] , Ph. 2021-10-18 2021-10-18 Outpatient Wyatt, PRIV PRIV [id number] 00:00:00 00:00:00 Estelle [id number] 2021-10-16 2021-10-16 Outpatient [facility]Tod PRIV PRIV 243 [id number] [facility] 04:50:00 04:50:00 d_J [id number] Medica l 2021-10-14 2021-10-14 Outpatient [facility]_Tod PRIV PRIV 243 [id number] [facility] 07:48:00 07:48:00 d_J [id number] Medica l 2021-10-14 2021-10-14 Estelle [facility] [id number] [facility] 00:00:00 00:00:00 RAÚL Schneider: Health - Med ical [address] [address] , Ph. 2021-10-14 2021-10-14 Outpatient Wyatt, PRIV PRIV [id number] 00:00:00 00:00:00 Estelle [id number] 2021-10-12 2021-10-12 Outpatient [facility]Tod PRIV PRIV 243 [id number] [facility] 04:19:00 04:19:00 d_J [id number] Medica l 2021-10-11 2021-10-11 Outpatient [facility]_Tod PRIV PRIV 243 [id number] [facility] 10:06:00 10:06:00 d_J [id number] Medica l 2021-10-11 2021-10-11 Estelle [facility] [id number] [facility] 00:00:00 00:00:00 RAÚL Schneider: Health - Med ical [address] [address] , Ph. 2021-10-11 2021-10-11 Outpatient Wyatt PRIV PRIV [id number] 00:00:00 00:00:00 Estelle [id number] 2021-10-07 2021-10-07 Outpatient GC[facility]_Tod PRIV PRIV [id number] [facility] 04:03:00 04:03:00 d_J [id number] Medica l 2021-10-07 2021-10-07 Estelle [facility] [id number] [facility] 00:00:00 00:00:00 RAÚL Schneider: Health - Med ical [address] [address] , Ph. 2021-10-04 2021-10-04 Outpatient GC_[facility]_Tod PRIV PRIV 243 [id number] [facility] 06:03:00 06:03:00 d_J [id number] Medica l 2021-10-04 2021-10-04 Outpatient Wyatt PRIV PRIV [id number] 00:00:00 00:00:00 Estelle [id number] 2021-10-04 Estelle [facility] [id number] [facility] 00:00:00 00:00:00 RAÚL Schneider: Health - Med ical [address] [address] , Ph. 2021-09-29 2021-09-29 Outpatient JAXON SUERO [facility] [id number] SLE 00:00:00 00:00:00 ARUN 2021-09-27 2021-09-27 Outpatient [facility]Tod PRIV PRIV 243 [id number] [facility] 01:19:00 01:19:00 d_J [id number] Medica l 2021-08-19 2021-09-24 Inpatient PABLO [facility] Neuro ICU [id number] SLE 13:12:00 16:11:00 BRETT 2021-08-19 2021-09-24 [facility] [id number] 13:12:[facility] 16:11:00 [facility], [facility], [facility], [facility] 2021-08-19 2021-09-24 [facility] [id number] 13:12:00 16:11:00 Encounter Vangie [facility], [facility], [facility], Brett [facility] Wendy Carter 2021-09-19 2021-09-19 [facility] [id number] 23:59:00 23:59:00 Encounter [facility] 2021-09-19 2021-09-19 [facility] [id number] 23:59:00 23:59:00 Encounter [facility] 2021-09-19 2021-09-19 Outpatient [facility] [id number] SLE 00:00:00 23:59:00 2021-09-16 2021-09-16 Outpatient JAXON FLORES [facility] [id number] [facility] 00:00:00 00:00:00 [facility] 2021-09-15 2021-09-15 Outpatient JAXON FLORES [id number] SLE 00:00:00 00:00:00 [facility] 2021-09-12 2021-09-12 Anesthesia Kiarra Rangel [facility] [id number] 11:54:00 12:55:00 Event [facility] 2021-09-12 2021-09-12 [facility] [id number] 11:54:00 12:55:00 [facility] 2021-09-12 2021-09-12 Surgery Adalgisa [facility] [id number] 10:00:00 11:00:00 [facility] 2021-09-12 2021-09-12 Surgery Adalgisa [facility] [id number] 10:00:00 11:00:00 [facility] 2021-09-09 2021-09-09 Anesthesia Jacques Cruz [facility] [id number] 13:15:51 13:15:51 Event Marilu Fermarsha [facility] 2021-09-09 2021-09-09 Anesthesia Jacques Cruz [facility] [id number] 13:15:51 13:15:51 Event Marilu Fermarsha [facility] 2021-08-20 2021-08-20 Orders [facility] [id number] 00:00:00 00:00:00 Only [facility] 2021-08-20 2021-08-20 Orders [facility] [id number] 00:00:00 00:00:00 Only [facility] 2021-08-11 2021-08-19 Hospital ER Isaac Meehan [facility] [id number] [id number] 01[facility]30[facility]00 12:30:00 Encounter [facility] 2021-08-11 2021-08-19 [facility] Isaac Meehan [facility] [id number] [id number] 01[facility]30[facility]00 12:30:00 Encounter [facility] 2021-08-11 2021-08-19 Inpatient ER ISAAC MEEHAN [facility] [id number] [facility] 01:30:00 12:30:00 Med 2021-08-11 2021-08-11 Travel [facility] [id number] [facility]00 [facility] 2021-08-11 2021-08-11 Travel [facility] [id number] [facility] 00[facility]00 [facility] 2021-08-02 2021-08-02 Office PaulaANNIE bolivar 6410 1.2.090.108 [id number] [place] 10:00:00 12:05:15 Visit Jose NEELY 350.1.13.58 Health 9.2.7.2.686 [id number] 2021-06-30 2021-06-30 (TEL) [facility] [id number] Co mmon 00:00:00 00:00:00 [facility] 2021-05-18 2021-05-18 Telephone ANNIE moscoso 6410 1.2.840.114 [id number] [place] 00:00:00 00:00:[address] 350.1.13.58 Health 9.2.7.2.686 [id number] 2021-01-25 2021-01-25 Documentat Eyal [facility] [id number] [id number] 00[facility] 00:00:00 deepak [facility] 2021-01-24 2021-01-24 Documentat Eyal [facility] [id number] [id number] 00[facility]00 00:00:00 ion [facility] 2021-01-24 2021-01-24 Abstract Jessa [facility] [id number] 00:00:00 00:00:00 [facility] 2021-01-14 2021-01-14 Documentat Bebe [facility] [id number] 00:[facility]00 00:00:00 ion [facility] 2020-11-15 2020-11-15 Orders Paula [facility] [id number] 00:00:00 00:00:00 Only [facility] 2020-02-25 2020-02-25 Outpatient [facility] [id number] [place] 00:00:00 00:00:00 SAJI 977 Method i 2020-02-25 2020-02-25 Outpatient [facility] [id number] [place] 00:00:00 00:00:00 SAJI 979 Method i 2020-01-30 2020-01-30 Orders Doctor WYNN 1.2.840.114 [id number] 00:00:00 00:00:00 Only Unassigned, TIMOTHY 350.1.13.10 Makanda [facility] 4.2.7.2.686 [id number] 009 2020-01-30 2020-01-30 Orders Doctor WYNN 1.2.840.114 [id number] [facility] 00:00:00 00:00:00 Only Unassigned, TIMOTHY 350.1.13.10 ity of Makanda [facility] 4.2.7.2.686 Red as [id number] [place] [address] [address] 2020-01-29 2020-01-29 Telephone [facility] 1.2.840.114 [id number] 00:00:00 00:00:00 [place] 350.1.13.10 [place] 4.2.7.2.686 Professio [id number] [address] 2020-01-29 2020-01-29 Telephone [facility] 1.2.840.114 [id number] [facility] 00:00:00 00:00:00 [place] 350.1.13.10 ity candis [place] 4.2.7.2.686 Benson May [id number] Ar dical [facility] [address] [employer] [employer] 2020-01-22 2020-01-22 Office BRISEIDA Osullivan 1.2.840.114 [id number] [facility] 10:05:54 11:52:05 Visit Daiana Valerio AMBULATOR 350.1.13.21 College Y 0.2.7.2.686 of [id number] [facility] 600 e 2020-01-22 2020-01-22 Office BRISEIDA Osullivan 1.2.840.114 [id number] 10:05:54 11:52:05 Visit Daiana Valerio AMBULATOR 350.1.13.21 Y 0.2.7.2.686 [id number] 600 2020-01-02 2020-01-02 Outpatient STLML[facility] [id number] Common 00:00:00 00:00:00 [facility] 2019-12-31 2019-12-31 Outpatient STLMLC STLMLC [id number] Common 00:00:00 00:00:00 [facility] 2019-12-25 2019-12-25 Office BRISEIDA Osullivan 1.2.840.[id number] [place] [address] 09:47:44 11:32:45 Visit Daiana Valerio AMBULATOR 350.1.13.21 College Y 0.2.7.2.686 of [id number] [facility] leticia 600 e 2019-12-25 2019-12-25 Office BRISEIDA Osullivan 1.2.840.114 [id number] [facility] 09:47:44 11:32:45 Visit Daiana Valerio AMBULATOR 350.1.13.21 Y 0.2.7.2.686 [id number] 600 2019-11-27 2019-11-27 Office BRISEIDA Osullivan 1.2.840.114 [id number] [facility] 08:35:10 09:57:10 Visit Daiana Valerio AMBULATOR 350.1.13.21 College Y 0.2.7.2.686 of [id number] [facility] leticia 600 e 2019-11-27 2019-11-27 Office BRISEIDA Osullivan 1.2.840.114 [id number] 08:35:10 09:57:10 Visit Daiana Valerio AMBULATOR 350.1.13.21 Y 0.2.7.2.686 [id number] 600 2019-11-24 2019-11-24 Outpatient Liya Nickersont 32 [id number] Common 09:17:00 09:17:[address] [facility] 2019-11-13 2019-11-13 Office BRISEIDA Osullivan 1.2.840.114 [id number] [facility] 15:52:21 16:41:09 Visit Daiana Valerio AMBULATOR 350.1.13.21 College Y 0.2.7.2.686 of [id number] [facility] 600 e 2019-11-13 2019-11-13 Office BRISEIDA Osullivan 1.2.840.114 [id number] 15:52:21 16:41:09 Visit Daiana Teodoro AMBULATOR 350.1.13.21 Y 0.2.7.2.686 [id number] 600 2019-11-12 2019-11-12 Outpatient Liya Nickersont 32 [id number] Common 09:30:00 09:30:00 [facility] 2019-11-04 2019-11-04 Outpatient EL [facility] [id number] [facility] 00:00:00 00:00:00 2019-11-04 2019-11-04 Outpatient EL [facility] [id number] [facility] 00:00:00 00:00:00 2019-10-07 2019-10-07 Outpatient EL [facility] [id number] [facility] 00:00:00 00:00:00 2019-10-02 2019-10-02 [facility] [id number] Common 16:22:00 16:22:[address] [facility] 2019-10-02 2019-10-02 Outpatient Brazmannie Nickersont 30 [id number] Common 10:15:00 10:15:[address] [facility] 2019-10-02 2019-10-02 [facility] [id number] Common 10:00:00 10:00:00 [place] [address] [facility] 2019-09-02 2019-09-02 Outpatient SLEH [facility] [id number] [facility] 00:00:00 00:00:00 [id number] 2019-09-02 2019-09-02 Outpatient EL [facility]H [facility] [id number] [facility] 00:00:00 00:00:00 2019-07-01 2019-07-01 Out[facility] [id number] Common 11:45:00 11:45:00 [address] [place] [address] [facility] 2019-05-23 2019-05-23 Orders Doctor WYNN 1.2.840.114 [id number] [facility] 00:00:00 00:00:00 Only Unassigned, TIMOTHY 350.1.13.10 ity of [place]anda [facility] 4.2.7.2.686 Red as [id number] [facility] [address] 2019-05-22 2019-05-22 Telephone [facility] 1.2.840.114 [id number] [facility] 00:00:00 00:00:00 Brown [place] 350.1.13.10 ity of [place] 4.2.7.2.686 [place] [id number] [place] 755862 [employer] [employer] 2019-05-12 2019-05-12 Orders Doctor WYNN 1.2.840.114 [id number] Univers 00:00:00 00:00:00 Only Unassigned, TIMOTHY 350.1.13.10 ity of [place] [facility] 4.2.7.2.686 Red as [id number] [facility] [address] 2019-04-10 2019-04-10 Out[facility] 29 [id number] Common 11:54:00 11:54:00 [address] [place] [address] [facility] 2019-03-31 2019-03-31 Outpatient [facility] [id number] Common 11:20:00 11:20:00 t [place] [address] [facility] 2019-03-27 2019-03-27 Outpatient [facility] [id number] Common 10:30:00 10:30:[address] [facility] 2019-03-12 2019-03-12 Outpatient [facility] [id number] Common 09:45:00 09:45:[address] [facility] Results Test Description Test Time Test Comments Results Result Comments Source MISCELLANEOUS LAB ORDER 2021-09-29 09:57:05 Test Item Value Reference Range Interpretation Comme nts SCAN RESULT (test code = 7817896) See scanned report See scanned reportPOC-Glucose [id number] 12:00:16 Test Item Value Reference Range Interpretation Comments POC-Glucose Meter (test 146 mg/dL 70-110 H : TE STED AT [facility] code = 1538) 6720 [facility], 770 30: Neck Cutter/Techni daniel ID = [id number] for TEZENO, BANDAR Lab Interpretation (test Abnormal code = 91442-1) [facility] [id number] 12:00:16 Test Item Value Reference Range Interpretation Comments POC-Glucose Meter (test 146 mg/dL 70-110 H : TE STED AT [facility] code = 1538) 6720 [facility], 770 30: Neck Cutter/Techni daniel ID = [id number] for TEZENO, BANDAR Lab Interpretation (test Abnormal code = 61441-0) [facility] [id number] 12:00:16 Test Item Value Reference Range Interpretation Comments POC-GLUCOSE METER 146 mg/dL 70-110 H : TESTED A T [facility] 6720 (BEAKER) (test code = [facility] Kevin [facility], 1538) 58657: Neck Cutter/Techni daniel ID = [id number] for TE ABHAY, BANDAR BASIC METABOLIC [id number] 07:05:24 Test Item Value Reference Range Interpretation [...] S NOT APPLICABLE FOR DIALYSIS PATIEN TS. Neck Cutter ID - BANDAR MPOCT-GLUCOSE [id number] 00:56:00 Test Item Value Reference Range Interpretation Comments POC-GLUCOSE METER 98 mg/dL 70-110 : TESTED A T [facility] 6720 ([facility]) (test code = ANIL Brown [facility], 1538) 04387: Neck Cutter/Techni daniel ID = [id number] for YOCASTA N (V)LETHAR POCT-GLUCOSE [id number] 17:09:29 Test Item Value Reference Range Interpretation Comments POC-GLUCOSE METER 110 mg/dL 70-110 : TESTED A T [facility] 6720 ([facility]) (test code [facility], = 1538) 19565: Neck Cutter/Techni daniel ID = [id number] for VIDA LAUREN Aaron SARS-CoV2/RT-PCR (Asymptomatic ONLY)2021-09-23 15:25:18 Test Item Value Reference Range Interpretation Comments SARS-COV2/RT-PCR (test Positive Not Detected, AA code = 35568-6) Negative, See external report for linked test SARS-COV-[address] [facility] (test code = 80594-5) CECELIA (test code = CECELIA) Results are [...] of the Act. Fact Sheet for Healthcare Providers:https://www.[employer]/sites/default /files/product/document s/Fact_Sheet_HC_Provide jq_Wvka_STMG-DxV-4.pdf Fact Sheet for Healthcare Patients:https://www.[employer]/sites/default/ files/product/documents /Fact_Sheet_Patients_Ly yo_IDZC-ZrF-5.pdf Performing Laboratory:[facility] [place] [address] Lab Interpretation Abnormal (test code = 82390-7) [facility]Asymptomatic ONLY)2021-09-23 15:25:18 Test Item Value Reference Range Interpretation Comments SARS-COV2/RT-PCR (test Positive Not Detected, AA code = 50026-4) Negative, See external report for linked test SARS-COV-[address] [facility] (test code = 52397-8) CECELIA (test code = CECELIA) Results are [...] of the Act. Fact Sheet for Healthcare Providers:https://www.[employer]/sites/default /files/product/document s/Fact_Sheet_HC_Provide yr_Tqnf_GNXZ-MdR-9.pdf Fact Sheet for Healthcare Patients:https://www.[employer]/sites/default/ files/product/documents /Fact_Sheet_Patients_Ly am_FNCV-JeH-6.pdf Performing Laboratory:[facility] [place] [address] Lab Interpretation Abnormal (test code = 58676-9) [facility] ([facility])2021-09-23 15:25:18 Test Item Value Reference Range Interpretation Comments SARS-COV2/RT-PCR (test Positive Not Detected, Negative, AA code = 9427919) See external report for linked test SARS-COV-[address] [facility] (test code = 1881095) Results are for the detection of SARS-CoV-2 [...] until the declaration that circumstances exist justifying theauthorization of the emergency use of in vitro diagnostic tests for detection and/or diagnosis of COV ID-19 is terminated under Section 564(b)(2) of the Act or the EUA is revoked under Section 564(g) ofthe Act.Fact Sheet for Healthcare Providers:https://www.[employer]/sites/default/files/product/docume nts/Jetp_Tqxeg_TC_Szbkrepnh_Gqzk_GNSS-QsN-3.pdfFact Sheet for Healthcare Patients:https://www.[employer]/sites/default/files/product/documents/Hbie_Thnnr_Svdmcoon_Fzeg_WHYI-FtD-3.pd fPerforming Laboratory:[facility], [place] [address]CFDU-RWUSEAY [id number] 08:15:54 Test Item Value Reference Range Interpretation Comments POC-GLUCOSE METER 89 mg/dL 70-110 : TESTED Mikala Diaz [facility] 6720 (CARLY) (test code = ANIL Kevin [facility], 1538) 23368: Neck Cutter/Techni daniel ID = [id number] for LAUREN Lester POCT-GLUCOSE [id number] 06:25:58 Test Item Value Reference Range Interpretation Comments POC-GLUCOSE METER 88 mg/dL 70-110 : TESTED A T [facility] 6720 (BEAKER) (test code = ANIL DYE [place], 1538) 15417: Neck Cutter/Techni daniel ID = [id number] for ALLISON ARMAS BASIC METABOLIC [id number] 04:22:37 Test Item Value Reference Range Interpretation [...] S NOT APPLICABLE FOR DIALYSIS PATIEN TS. Neck Cutter ID - THEE [id number] 04:16:36 Test Item Value Reference Range Interpretation Comments Magnesium (test code = 2.5 mg/dL 1.6-2.6 41020-6) CECELIA (test code = CECELIA) Neck Cutter ID - THEE G Lab Interpretation (test Normal code = 23693-1) [facility] 04:16:36 Test Item Value Reference Range Interpretation Comments Phosphorus (test code = 2.8 mg/dL 2.3-4.7 2777-1) CECELIA (test code = CECELIA) Neck Cutter ID - THEE G Lab Interpretation (test Normal code = 54907-8) [facility]Reactive [id number] 04:16:36 Test Item Value Reference Range Interpretation Comments CRP (test code = 676) 11.91 mg/dL 0.00-0.50 H CECELIA (test code = CECELIA) Neck Cutter ID - THEE G Lab Interpretation (test Abnormal code = 19843-8) [facility]2022-07-01 04:16:36 Test Item Value Reference Range Interpretation Comments Magnesium (test code = 2.5 mg/dL 1.6-2.6 20115-3) CECELIA (test code = CECELIA) Neck Cutter ID - THEE G Lab Interpretation (test Normal code = 76315-5) [facility]2022-07-01 04:16:36 Test Item Value Reference Range Interpretation Comments Phosphorus (test code = 2.8 mg/dL 2.3-4.7 2777-1) CECELIA (test code = CECELIA) Neck Cutter ID - THEE G Lab Interpretation (test Normal code = 46746-5) [facility] [id number] 04:16:36 Test Item Value Reference Range Interpretation Comments CRP (test code = 676) 11.91 mg/dL 0.00-0.50 H CECELIA (test code = CECELIA) Neck Cutter ID - THEE G Lab Interpretation (test Abnormal code = 13514-6) [facility]UM2022-07-01 04:16:36 Test Item Value Reference Range Interpretation Comments MAGNESIUM (BEAKER) (test code = 2.5 mg/dL 1.6-2.6 627) Neck Cutter ID - THEE [id number] 04:16:36 Test Item Value Reference Range Interpretation Comments PHOSPHORUS (BEAKER) (test code = 2.8 mg/dL 2.3-4.7 604) Neck Cutter ID - THEE GC-REACTIVE [id number] 04:16:36 Test Item Value Reference Range Interpretation Comments C-REACTIVE PROTEIN (BEAKER) (test 11.91 mg/dL 0.00-0.50 H code = 676) Neck Cutter ID - THEE GCBC (Hemogram only)2021-09-23 03:52:42 Test Item Value Reference Range Interpretation Comments WBC (test code = 6690-2) 10.1 See_Comment [A utomated message] The system [employer] generated this result transmitted ref erence range: 3.5 - 10 .5 K/L. The refe rence range was not u sed to interpret this result as normal/abnor mal. RBC (test code = 789-8) 2.66 See_Comment L [Au tomated message] The system [employer] generated this result transmitted ref erence range: 3.93 - 5 .22 M/L. The refe rence range was not u sed to interpret this result as normal/abnor mal. MCHC (test code = 786-4) 31.5 See_Comment L [A utomated message] The system [employer] generated this result transmitted ref erence range: [...] See_Comment [Aut omated message] 777-3) The system [employer] generated this result transmitted ref erence range: 150 - 45 0 K/CU MM. The referen ce range was not u sed to interpret this result as normal/abnor mal. MPV (test code = 9.4 fL 9.4-12.3 76067-4) nRBC (test code = 413) 0 See_Comment [Aut omated message] The system [employer] generated this result transmitted ref erence range: 0 - 0 /1 00 WBC. The refere nce range was not u sed to interpret this result as normal/abnor mal. Lab Interpretation (test Abnormal code = 87708-9) [facility] (Hemogram only)2021-09-23 03:52:42 Test Item Value Reference Range Interpretation Comments WBC (test code = 6690-2) 10.1 See_Comment [A utomated message] The system [employer] generated this result transmitted ref erence range: 3.5 - 10 .5 K/L. The refe rence range was not u sed to interpret this result as normal/abnor mal. RBC (test code = 789-8) 2.66 See_Comment L [Au tomated message] The system [employer] generated this result transmitted ref erence range: 3.93 - 5 .22 M/L. The refe rence range was not u sed to interpret this result as normal/abnor mal. MCHC (test code = 786-4) 31.5 See_Comment L [A utomated message] The system [employer] generated this result transmitted ref erence range: [...] See_Comment [Aut omated message] 777-3) The system [employer] generated this result transmitted ref erence range: 150 - 45 0 K/CU MM. The referen ce range was not u sed to interpret this result as normal/abnor mal. MPV (test code = 9.4 fL 9.4-12.3 06140-6) nRBC (test code = 413) 0 See_Comment [Aut omated message] The system [employer] generated this result transmitted ref erence range: 0 - 0 /1 00 WBC. The refere nce range was not u sed to interpret this result as normal/abnor mal. Lab Interpretation (test Abnormal code = 33667-8) [facility] (HEMOGRAM ONLY)2021-09-23 03:52:42 Test Item Value Reference [...] 0-0 (BEAKER) (test code = 413) POCT-GLUCOSE [id number] 23:51:03 Test Item Value Reference Range Interpretation Comments POC-GLUCOSE METER 158 mg/dL 70-110 H : [facility] ([facility] (test code = ANIL DYE [place], 1538) 067[address]: Neck Cutter/Techni daniel ID = [id number] for ALLISON HORTA CT, BRAIN, WITHOUT [id number] 17:58:00Unlisted Reason for Exam - Click Yes and Enter Reason Below->No [facility] 1965 Sex: FFINAL REPORT [...] Signed: Ruth Benítez Verified Date/Time: 09/22/2021 17:58:57 [id number] 15:11:51 Test Item Value Reference Range Interpretation Comments THYROID STIMULATING HORMONE 4.461 uIU/mL 0.350-4.940 (BEAKER) (test code = 772) Neck Cutter ID - BSVITAMIN [id number] 15:11:51 Test Item Value Reference Range Interpretation Comments VITAMIN B12 (BEAKER) (test code = 647 pg/mL 213-816 774) Neck Cutter ID - BSPOCT-GLUCOSE [id number] 11:59:22 Test Item Value Reference Range Interpretation Comments POC-GLUCOSE METER 142 mg/dL 70-110 H : TESTED A T [facility] 6720 ([employer]) (test code [facility], = 1538) 55816: Neck Cutter/Techni daniel ID = [id number] for LAUREN Lester ANURADHA POCT-GLUCOSE [id number] 23:31:55 Test Item Value Reference Range Interpretation Comments POC-GLUCOSE METER 130 mg/dL 70-110 H : TESTED A T [facility] 6720 (BEAKER) (test code = ANIL Brown [facility], 1538) 22481: Neck Cutter/Techni daniel ID = [id number] for [place], Vickie VALPROIC ACID LEVEL, [id number] 19:13:57 Test Item Value Reference Range Interpretation Comments VALPROIC ACID TOTAL (BEAKER) (test 53 ug/mL 50-100 code = 924) Therapeutic range for some clinical conditions may be >100 ug/mLOperator ID - BSBLOOD [id number] 16:01:08 Test Item Value Reference Range Interpretation Comments CULTURE (BEAKER) (test No growth in 5 days code = 1095) BLOOD [id number] 16:01:07 Test Item Value Reference Range Interpretation Comments CULTURE (BEAKER) (test No growth in 5 days code = 1095) POCT-GLUCOSE [id number] 11:43:19 Test Item Value Reference Range Interpretation Comments POC-GLUCOSE METER 105 mg/dL 70-110 : TESTED A T [facility] 6720 (BEAKER) (test code = [facility], 1538) 93833: Neck Cutter/Techni daniel ID = [id number] for LEENA ROTHMAN POCT-GLUCOSE [id number] 06:58:18 Test Item Value Reference Range Interpretation Comments POC-GLUCOSE METER 138 mg/dL 70-110 H : TESTED A T [facility] 6720 (BEAKER) (test code = [facility] [employer] [facility], 1538) 39354: Neck Cutter/Techni daniel ID = [id number] for Amparo Warren BASIC METABOLIC [id number] 05:34:52 Test Item Value Reference Range Interpretation [...] S NOT APPLICABLE FOR DIALYSIS PATIEN TS. Neck Cutter ID - DANA LC-REACTIVE [id number] 05:34:35 Test Item Value Reference Range Interpretation Comments C-REACTIVE PROTEIN (BEAKER) (test 17.60 mg/dL 0.00-0.50 H code = 676) Neck Cutter ID - DANA [id number] 05:34:34 Test Item Value Reference Range Interpretation Comments MAGNESIUM (BEAKER) (test code = 2.4 mg/dL 1.6-2.6 627) Neck Cutter ID - PIROSIE [id number] 05:34:34 Test Item Value Reference Range Interpretation Comments PHOSPHORUS (BEAKER) (test code = 3.2 mg/dL 2.3-4.7 604) Neck Cutter ID - DANA LPOCT-GLUCOSE [id number] 23:43:01 Test Item Value Reference Range Interpretation Comments POC-GLUCOSE METER 113 mg/dL 70-110 H : TESTED A T [facility] 6720 (BEAKER) (test code = [facility], 1538) 46348: Neck Cutter/Techni daniel ID = [id number] for Amparo Warren POCT-GLUCOSE [id number] 18:10:57 Test Item Value Reference Range Interpretation Comments POC-GLUCOSE METER 109 mg/dL 70-110 : TESTED A T [facility] 6720 (BEAKER) (test code = [facility], 1538) 27823: Neck Cutter/Techni daniel ID = [id number] for TE ABHAY, BANDAR BLOOD [id number] 17:00:52 Test Item Value Reference Range Interpretation Comments CULTURE (BEAKER) (test No growth in 5 days code = 1095) POCT-GLUCOSE [id number] 12:23:54 Test Item Value Reference Range Interpretation Comments POC-GLUCOSE METER 102 mg/dL 70-110 : TESTED A T [facility] 6720 (BEAKER) (test code = [facility], 1538) 56442: Neck Cutter/Techni daniel ID = [id number] for TE ABHAY, BANDAR POCT-GLUCOSE [id number] 06:03:14 Test Item Value Reference Range Interpretation Comments POC-GLUCOSE METER 117 mg/dL 70-110 H : TESTED A T [facility] 6720 (BEAKER) (test code = [facility], 1538) 90038: Neck Cutter/Techni adniel ID = [id number] for ALLISON HORTA POCT-GLUCOSE [id number] 23:34:08 Test Item Value Reference Range Interpretation Comments POC-GLUCOSE METER 130 mg/dL 70-110 H : TESTED A T [facility] 6720 (BEAKER) (test code = [facility], 1538) 10276: Neck Cutter/Techni daniel ID = [id number] for ALLISON HORTA POCT-GLUCOSE [id number] 17:25:33 Test Item Value Reference Range Interpretation Comments POC-GLUCOSE METER 118 mg/dL 70-110 H : TESTED A T [facility] 6720 (BEAKER) (test code = [facility], 1538) 13455: Neck Cutter/Techni daniel ID = [id number] for ST [employer], NADA POCT-GLUCOSE [id number] 11:37:16 Test Item Value Reference Range Interpretation Comments POC-GLUCOSE METER 110 mg/dL 70-110 : TESTED A T [facility] 6720 (BEAKER) (test code = [facility], 1538) 23181: Neck Cutter/Techni daniel ID = [id number] for ST [employer], NADA POCT-GLUCOSE [id number] 06:41:12 Test Item Value Reference Range Interpretation Comments POC-GLUCOSE METER 110 mg/dL 70-110 : TESTED A T [facility] 6720 (BEAKER) (test code = [facility], 1538) 10148: Neck Cutter/Techni daniel ID = [id number] for ANGELIKA STALEY BASIC METABOLIC [id number] 05:33:28 Test Item Value Reference Range Interpretation [...] S NOT APPLICABLE FOR DIALYSIS PATIEN TS. Neck Cutter ID - THEE [id number] 05:25:46 Test Item Value Reference Range Interpretation Comments MAGNESIUM (BEAKER) (test code = 2.3 mg/dL 1.6-2.6 627) Neck Cutter ID - THEE GC-REACTIVE [id number] 05:25:46 Test Item Value Reference Range Interpretation Comments C-REACTIVE PROTEIN (BEAKER) (test 17.48 mg/dL 0.00-0.50 H code = 676) Neck Cutter ID - THEE GPOCT-GLUCOSE [id number] 00:56:08 Test Item Value Reference Range Interpretation Comments POC-GLUCOSE METER 107 mg/dL 70-110 : TESTED A T [facility] 6720 ([employer]) (test code = [facility], 153) 31776: Neck Cutter/Techni daniel ID = [id number] for ANGELIKA STALEY POCT-GLUCOSE [id number] 18:06:33 Test Item Value Reference Range Interpretation Comments POC-GLUCOSE METER 110 mg/dL 70-110 : TESTED A T [facility] 6720 (BEAKER) (test code = [facility], 1538) 17796: Neck Cutter/Techni daniel ID = [id number] for DONNIE LANGLEY POCT-GLUCOSE [id number] 12:14:38 Test Item Value Reference Range Interpretation Comments POC-GLUCOSE METER 116 mg/dL 70-110 H : TESTED A T [facility] 6720 (BEAKER) (test code = [facility], 153) 89526: Neck Cutter/Techni daniel ID = [id number] for DONNIE LANGLEY BASIC METABOLIC [id number] 05:21:10 Test Item Value Reference Range Interpretation [...] S NOT APPLICABLE FOR DIALYSIS PATIEN TS. Neck Cutter ID - THEE [id number] 05:13:01 Test Item Value Reference Range Interpretation Comments PHOSPHORUS (BEAKER) (test code = 2.0 mg/dL 2.3-4.7 L 604) Neck Cutter ID - THEE [id number] 05:13:00 Test Item Value Reference Range Interpretation Comments MAGNESIUM (BEAKER) (test code = 2.1 mg/dL 1.6-2.6 627) Neck Cutter ID - THEE GCBC (HEMOGRAM ONLY)2021-09-18 05:08:01 [...] 0-0 (BEAKER) (test code = 413) POCT-GLUCOSE [id number] 17:42:12 Test Item Value Reference Range Interpretation Comments POC-GLUCOSE METER 114 mg/dL 70-110 H : TESTED A T [facility] 6720 (BEAKER) (test code = [facility] [place], 1538) 29983: Neck Cutter/Techni daniel ID = [id number] for DONNIE LANGLEY BASIC METABOLIC [id number] 14:00:34 Test Item Value Reference Range Interpretation [...] S NOT APPLICABLE FOR DIALYSIS PATIEN TS. Neck Cutter ID - BANDAR [id number] 13:54:23 Test Item Value Reference Range Interpretation Comments MAGNESIUM (BEAKER) (test code = 2.2 mg/dL 1.6-2.6 627) Neck Cutter ID - BANDAR MCBC (HEMOGRAM ONLY)2021-09-17 13:41:41 [...] 0-0 (BEAKER) (test code = 413) POCT-GLUCOSE [id number] 12:17:44 Test Item Value Reference Range Interpretation Comments POC-GLUCOSE METER 106 mg/dL 70-110 : TESTED A T [facility] 6720 (BEAKER) (test code = [facility] [employer] [facility], 1538) 77379: Neck Cutter/Techni daniel ID = [id number] for DONNIE LANGLEY POCT-GLUCOSE [id number] 22:49:23 Test Item Value Reference Range Interpretation Comments POC-GLUCOSE METER 132 mg/dL 70-110 H : TESTED A T [facility] 6720 (BEAKER) (test code = [facility] [employer] [facility], 1538) 38884: Neck Cutter/Techni daniel ID = [id number] for ANGELIKA STALEY POCT-GLUCOSE [id number] 17:34:14 Test Item Value Reference Range Interpretation Comments POC-GLUCOSE METER 122 mg/dL 70-110 H : TESTED A T [facility] 67[address] (CARLY) (test code = [place], 1538) 59730: Neck Cutter/Techni daniel ID = [id number] for CATHY MONTOYA SARS-COV2/RT-PCR ([facility])2021-09-16 13:48:06 Test Item Value Reference Range Interpretation Comments SARS-COV2/RT-PCR (test Positive Not Detected, Negative, AA code = 7913973) See external report for linked test SARS-COV-[address] [facility] ANDREEA (test code = 8230721) Results are for the detection of SARS-CoV-2 [...] 564(g) of the Act.Fact Sheet for Healthcare Providers:https://www.[employer].com/sites/default/files/product/documen ts/Awnc_Yshdz_GG_Xrtrsxiqv_Ffyv_ONCH-QuB-4.pdfFact Sheet for Healthcare Patients:https://www.quidel.c om/sites/default/files/product/documents/Nudl_Eooxx_Lepiidpk_Pzdi_CEEV-WaJ-2.pdf Performing Laboratory:[facility].[place], [place] [address]EAZJ-QNKFAXF [id number] 11:26:15 Test Item Value Reference Range Interpretation Comments POC-GLUCOSE METER 108 mg/dL 70-110 : TESTED A T [facility] 6720 (BEAKER) (test code = [facility], 1538) 82379: Neck Cutter/Techni daniel ID = [id number] for CATHY MONTOYA POCT-GLUCOSE [id number] 06:27:24 Test Item Value Reference Range Interpretation Comments POC-GLUCOSE METER 97 mg/dL 70-110 : TESTED A T [facility] 6720 (BEAKER) (test code = [facility], 1538) 35824: Neck Cutter/Techni daniel ID = [id number] for Fidelia Sullivan BASIC METABOLIC [id number] 03:59:42 Test Item Value Reference Range Interpretation [...] S NOT APPLICABLE FOR DIALYSIS PATIEN TS. Neck Cutter ID - [id number] 03:56:56 Test Item Value Reference Range Interpretation Comments MAGNESIUM (BEAKER) (test code = 2.2 mg/dL 1.6-2.6 627) Neck Cutter ID - [id number] 03:56:56 Test Item Value Reference Range Interpretation Comments PHOSPHORUS (BEAKER) (test code = 3.9 mg/dL 2.3-4.7 604) Neck Cutter ID - ADMINVANCOMYCIN LEVEL, [id number] 03:52:49 Test Item Value Reference Range Interpretation [...] 0-0 (BEAKER) (test code = 413) POCT-GLUCOSE [id number] 23:18:54 Test Item Value Reference Range Interpretation Comments POC-GLUCOSE METER 104 mg/dL 70-110 : Notified RN/MD: ([facility]) (test code = TESTED AT [facility] 6720 1538) [facility] [address]: Neck Cutter/Techni daniel ID = [id number] for BAIRON CHRISTENSEN POCT-GLUCOSE [id number] 17:14:40 Test Item Value Reference Range Interpretation Comments POC-GLUCOSE METER 77 mg/dL 70-110 : TESTED A T [facility] 67[address] ([facility]) (test code = [facility], 1538) 24250: Neck Cutter/Techni daniel ID = [id number] for Umney , Johnumbu POCT-GLUCOSE [id number] 11:36:13 Test Item Value Reference Range Interpretation Comments POC-GLUCOSE METER 99 mg/dL 70-110 : TESTED A T [facility] 67[address] ([facility]) (test code = [facility], 1538) 22603: Neck Cutter/Techni daniel ID = [id number] for Umeh , Johnumbu [id number] 09:38:21 Test Item Value Reference Range Interpretation Comments PROCALCITONIN (BEAKER) (test code 1.28 ng/mL <0.05 H = 3036) SEPSIS RISK (ng/mL)Low: 0.05-0.50Intermediate: 0.51-2.00High: >=2.01LACTIC ACID, [id number] 09:17:37 Test Item Value Reference Range Interpretation Comments LACTATE BLOOD VENOUS (2) (BEAKER) 1.14 mmol/L 0.50-2.20 (test code = 2872) Neck Cutter ID - PIAYA LCBC W/PLT COUNT & AUTO [id number] 09:09:24 Test Item Value Reference Range Interpretation [...] PERCENT (BEAKER) (test code = 2801) POCT-GLUCOSE [id number] 06:12:37 Test Item Value Reference Range Interpretation Comments POC-GLUCOSE METER 84 mg/dL 70-110 : Notified RN/MD: TESTED (BEAKER) (test code = AT [facility] 67[address] 3938) [place], [address]: Neck Cutter/Techni daniel ID = [id number] for MABEL CASTRO POCT-GLUCOSE [id number] 23:36:01 Test Item Value Reference Range Interpretation Comments POC-GLUCOSE METER 97 mg/dL 70-110 : Notified RN/MD: TESTED (BEAKER) (test code = AT [facility] [address] 1538) [place], [address]: Neck Cutter/Techni daniel ID = [id number] for MABEL CASTRO POCT-GLUCOSE [id number] 18:09:46 Test Item Value Reference Range Interpretation Comments POC-GLUCOSE METER 94 mg/dL 70-110 : TESTED A T [facility] 6720 (BEAKER) (test code = ANIL Brown [facility], 1538) 11671: Neck Cutter/Techni daniel ID = [id number] for Crystal Varghese CBC (HEMOGRAM ONLY)2021-09-14 17:15:31 [...] = 413) RAD, CHEST, 1 VIEW, NON [id number] 17:12:00Reason for exam:->cough, feverShould this be performed at the bedside?->No [facility] : 1965 Sex: FFINAL REPORT [...] prominent on the left. Signed: Jaime [facility] Verified Date/Time: 09/14/2021 17:12:21 BASI METABOLIC [id number] 14:20:30 Test Item Value Reference Range Interpretation Comments SODIUM (BEAKER) 137 meq/L 136-145 (test code = 381) POTASSIUM (BEAKER) 3.4 meq/L 3.5-5.1 L Specimen slightly (test code = 379) hemolyzed CHLORIDE (BEAKER) 101 meq/L 98-107 (test code = 382) CO2 (BEAKER) (test 26 meq/L 22- code = 355) BLOOD UREA NITROGEN 6 [...] S NOT APPLICABLE FOR DIALYSIS PATIEN TS. Neck Cutter ID - [id number] 14:12:02 Test Item Value Reference Range Interpretation Comments MAGNESIUM (BEAKER) 1.9 mg/dL 1.6-2.6 Specimen slightly (test code = 627) hemolyzed Neck Cutter ID - [id number] 14:12:02 Test Item Value Reference Range Interpretation Comments PHOSPHORUS (BEAKER) 2.2 mg/dL 2.3-4.7 L Specimen slightly (test code = 604) hemolyzed Neck Cutter ID - BSCBC W/PLT COUNT & AUTO [id number] 14:05:43 Test Item Value Reference Range Interpretation [...] PERCENT (BEAKER) (test code = 2801) POCT-GLUCOSE [id number] 12:21:16 Test Item Value Reference Range Interpretation Comments POC-GLUCOSE METER 82 mg/dL 70-110 : TESTED A T [facility] 6720 (BEAKER) (test code = [facility], 153) 30366: Neck Cutter/Techni daniel ID = [id number] for Crystal Varghese POCT-GLUCOSE [id number] 07:31:12 Test Item Value Reference Range Interpretation Comments POC-GLUCOSE METER 94 mg/dL 70-110 : TESTED A T [facility] 6720 (BEAKER) (test code = [facility], 153) 50343: Neck Cutter/Techni daniel ID = [id number] for Sam garcia Rita POCT-GLUCOSE [id number] 06:33:11 Test Item Value Reference Range Interpretation Comments POC-GLUCOSE METER 66 mg/dL 70-110 L : TESTED A T [facility] 6720 (BEAKER) (test code = [facility], 1538) 79129: Neck Cutter/Techni daniel ID = [id number] for Sam rsMakenna lazoe POCT-GLUCOSE [id number] 01:18:11 Test Item Value Reference Range Interpretation Comments POC-GLUCOSE METER 94 mg/dL 70-110 : TESTED A T [facility] 6720 (BEAKER) (test code = [facility], 1538) 83352: Neck Cutter/Techni daniel ID = [id number] for Sam rsviolet, Najae POCT-GLUCOSE [id number] 00:41:03 Test Item Value Reference Range Interpretation Comments POC-GLUCOSE METER 73 mg/dL 70-110 : TESTED A T [facility] 6720 (BEAKER) (test code = [facility], [facility]8) 08092: Neck Cutter/Techni daniel ID = [id number] for Sam rsviolet, Najae POCT-GLUCOSE [id number] 19:01:25 Test Item Value Reference Range Interpretation Comments POC-GLUCOSE METER 85 mg/dL 70-110 : TESTED A T [facility] 6720 (BEAKER) (test code = [facility], 1538) 62062: Neck Cutter/Techni daniel ID = [id number] for Aníbal Flores POCT-GLUCOSE [id number] 12:53:55 Test Item Value Reference Range Interpretation Comments POC-GLUCOSE METER 76 mg/dL 70-110 : TESTED A T [facility] 6720 (BEAKER) (test code = [facility], [facility]8) 67319: Neck Cutter/Techni daniel ID = [id number] for Crystal Varghese POCT-GLUCOSE [id number] 06:10:51 Test Item Value Reference Range Interpretation Comments POC-GLUCOSE METER 74 mg/dL 70-110 : TESTED A T [facility] 6720 (BEAKER) (test code = [facility], 1538) 00987: Neck Cutter/Techni daniel ID = [id number] for TIANNA MIGUELITO LINDA POCT-GLUCOSE [id number] 23:49:08 Test Item Value Reference Range Interpretation Comments POC-GLUCOSE METER 70 mg/dL 70-110 : TESTED A T [facility] 6720 (BEAKER) (test code = [facility], 153) 79701: Neck Cutter/Techni daniel ID = [id number] for MIGUELITO CAMPUZANO POCT-GLUCOSE [id number] 18:55:34 Test Item Value Reference Range Interpretation Comments POC-GLUCOSE METER 72 mg/dL 70-110 : TESTED A T [facility] 6720 (BEAKER) (test code = [facility], 153) 72915: Neck Cutter/Techni daniel ID = [id number] for ROSSANA SALINAS HEPATITIS B SURFACE [id number] 15:59:47 Test Item Value Reference Range Interpretation Comments HEPATITIS B SURFACE ANTIGEN (2) Nonreactive Nonreactive (BEAKER) (test code = 2585) Specimen is considered negative for HBsAg.POCT-GLUCOSE [id number] 13:47:27 Test Item Value Reference Range Interpretation Comments POC-GLUCOSE METER 127 mg/dL 70-110 H : TESTED A T [facility] 6720 (BEAKER) (test code = [facility], [facility]) 66386: Neck Cutter/Techni daniel ID = [id number] for FELICIANO LEONARD POCT-GLUCOSE [id number] 13:11:52 Test Item Value Reference Range Interpretation Comments POC-GLUCOSE METER 66 mg/dL 70-110 L : TESTED A T [facility] 6720 (BEAKER) (test code = [facility], [facility]) 74642: Neck Cutter/Techni daniel ID = [id number] for Alden ozuna, Janes POCT-GLUCOSE [id number] 06:41:15 Test Item Value Reference Range Interpretation Comments POC-GLUCOSE METER 78 mg/dL 70-110 : TESTED A T [facility] 6720 (BEAKER) (test code = [facility], [facility]8) 61874: Neck Cutter/Techni daniel ID = [id number] for Chioma sterling Leidy BASIC METABOLIC [id number] 06:03:05 Test Item Value Reference Range Interpretation [...] S NOT APPLICABLE FOR DIALYSIS PATIEN TS. Neck Cutter ID - DBCBC W/PLT COUNT & AUTO [id number] 05:27:35 Test Item Value Reference Range Interpretation [...] H PERCENT (BEAKER) (test code = 2801) [id number] 05:03:14 Test Item Value Reference Range Interpretation Comments PARTIAL THROMBOPLASTIN TIME 70.9 seconds 22.5-36.0 H (BEAKER) (test code = 760) POCT-GLUCOSE [id number] 23:57:21 Test Item Value Reference Range Interpretation Comments POC-GLUCOSE METER 77 mg/dL 70-110 : TESTED A T [facility] 6720 (BEAKER) (test code = [facility], 1538) 32064: Neck Cutter/Techni daniel ID = [id number] for Leidy Wolf [id number] 18:38:34 Test Item Value Reference Range Interpretation [...] 0-0 (BEAKER) (test code = 413) POCT-GLUCOSE [id number] 18:08:00 Test Item Value Reference Range Interpretation Comments POC-GLUCOSE METER 74 mg/dL 70-110 : TESTED A T [facility] 6720 ([facility]) (test code = [facility], [facility]8) 10869: Neck Cutter/Techni daniel ID = [id number] for [place], [employer] POCT-GLUCOSE [id number] 13:12:29 Test Item Value Reference Range Interpretation Comments POC-GLUCOSE METER 69 mg/dL 70-110 L : TESTED A T [facility] 6720 ([facility]) (test code = [facility], [facility]8) 53965: Neck Cutter/Techni daniel ID = [id number] for [place], [employer] [id number] 12:30:50 Test Item Value Reference Range Interpretation Comments PARTIAL THROMBOPLASTIN TIME 77.2 seconds 22.5-36.0 H (AKER) (test code = 760) POCT-GLUCOSE [id number] 10:56:50 Test Item Value Reference Range Interpretation Comments POC-GLUCOSE METER 86 mg/dL 70-110 : TESTED A T [facility] 6720 ([facility]) (test code = [facility], 1538) 23555: Neck Cutter/Techni daniel ID = [id number] for Bernardo Anderson POCT-GLUCOSE [id number] 06:43:38 Test Item Value Reference Range Interpretation Comments POC-GLUCOSE METER 74 mg/dL 70-110 : TESTED A T [facility] 6720 (BEAKER) (test code = [facility], 1538) 77491: Neck Cutter/Techni daniel ID = [id number] for Leidy Wolf [id number] 05:37:41 Test Item Value Reference Range Interpretation Comments PARTIAL THROMBOPLASTIN TIME 55.9 seconds 22.5-36.0 H (BEAKER) (test code = 760) [id number] 03:37:37 Test Item Value Reference Range Interpretation Comments PARTIAL THROMBOPLASTIN TIME 137.2 seconds 22.5-36.0 H (BEAKER) (test code = 760) POCT-GLUCOSE [id number] 01:19:33 Test Item Value Reference Range Interpretation Comments POC-GLUCOSE METER 78 mg/dL 70-110 : TESTED A T [facility] 6720 (BEAKER) (test code = [facility], 1538) 00640: Neck Cutter/Techni daniel ID = [id number] for Leidy Wolf [id number] 18:12:08 Test Item Value Reference Range Interpretation Comments PARTIAL THROMBOPLASTIN TIME 108.3 seconds 22.5-36.0 H (BEAKER) (test code = 760) POCT-GLUCOSE [id number] 17:37:49 Test Item Value Reference Range Interpretation Comments POC-GLUCOSE METER 71 mg/dL 70-110 : TESTED A T [facility] 6720 (BEAKER) (test code = [facility], 1538) 25386: Neck Cutter/Techni daniel ID = [id number] for BRENDON NEERAJ, CATHY POCT-GLUCOSE [id number] 11:56:09 Test Item Value Reference Range Interpretation Comments POC-GLUCOSE METER 91 mg/dL 70-110 : TESTED A T [facility] 6720 (BEAKER) (test code = [facility], 1538) 54433: Neck Cutter/Techni daniel ID = [id number] for BRENDON NEERAJ, CATHY [id number] 10:59:29 Test Item Value Reference Range Interpretation Comments PARTIAL THROMBOPLASTIN TIME 49.1 seconds 22.5-36.0 H (BEAKER) (test code = 760) [id number] 09:34:25 Test Item Value Reference Range Interpretation Comments PARTIAL THROMBOPLASTIN TIME 119.2 seconds 22.5-36.0 H (BEAKER) (test code = 760) POCT-GLUCOSE [id number] 08:13:50 Test Item Value Reference Range Interpretation Comments POC-GLUCOSE METER 72 mg/dL 70-110 : TESTED A T [facility] 6720 (BEAKER) (test code = [facility], 1538) 35881: Neck Cutter/Techni daniel ID = [id number] for CATHY HONEYCUTT POCT-GLUCOSE [id number] 07:13:36 Test Item Value Reference Range Interpretation Comments POC-GLUCOSE METER 66 mg/dL 70-110 L : TESTED A T [facility] 6720 (BEAKER) (test code = [facility], 1538) 10289: Neck Cutter/Techni daniel ID = [id number] for Leidy Wolf [id number] 03:21:24 Test Item Value Reference Range Interpretation Comments PARTIAL THROMBOPLASTIN TIME 70.8 seconds 22.5-36.0 H (BEAKER) (test code = 760) POCT-GLUCOSE [id number] 00:46:57 Test Item Value Reference Range Interpretation Comments POC-GLUCOSE METER 79 mg/dL 70-110 : TESTED A T [facility] 6720 (BEAKER) (test code = [facility], 1538) 75121: Neck Cutter/Techni daniel ID = [id number] for Leidy Wolf [id number] 17:47:53 Test Item Value Reference Range Interpretation Comments PARTIAL THROMBOPLASTIN TIME 26.9 seconds 22.5-36.0 (BEAKER) (test code = 760) POCT-GLUCOSE [id number] 17:29:51 Test Item Value Reference Range Interpretation Comments POC-GLUCOSE METER 86 mg/dL 70-110 : TESTED A T [facility] 6720 (BEAKER) (test code = [facility], 1538) 94164: Neck Cutter/Techni daniel ID = [id number] for CATHY HONEYCUTT SARS-COV2/RT-PCR ([facility])2021-09-09 16:21:38 Test Item Value Reference Range Interpretation Comments SARS-COV2/RT-PCR Negative Negative The SARS-Co V-2 target (test code = nucleic acids a re not [id number]) detected in thi s specimen. Negative result [...] revoked sooner. Fact Sheet for Healthcare Providers: https://www.GeneExcel m/Documents/Xpert%20Xpress%20SARS%20CoV-2/Fact%20Sheets/3023802%75MEBY-EUM-9%20 HEALTHCARE%20PROVIDERS%20FACT%20SHEET.pdf Fact Sheet for Healthcare Patients: https://www.FutureAdvisor/Documents/Xpert%20Xp ress%20SARS%20CoV-2/Fact%20Sheets/3023801%16ABMJ-YEX-2%20PATIENT%20FACT%20SHEET .pdfPOCT-GLUCOSE [id number] 12:24:09 Test Item Value Reference Range Interpretation Comments POC-GLUCOSE METER 76 mg/dL 70-110 : TESTED A T [facility] 6720 (CARLY) (test code = [place], 1538) 21261: Neck Cutter/Techni daniel ID = [id number] for CATHY HONEYCUTT POCT-GLUCOSE [id number] 10:14:48 Test Item Value Reference Range Interpretation Comments POC-GLUCOSE METER 71 mg/dL 70-110 : TESTED A T [facility] 6720 (BEAKER) (test code = [place], 1538) 38503: Neck Cutter/Techni daniel ID = [id number] for Scooby Bradley MISCELLANEOUS LAB [id number] 09:27:23 Test Item Value Reference Range Interpretation Comments SCAN RESULT (test code = See scanned report [id number]) See scanned [id number] 08:22:05 Test Item Value Reference Range Interpretation Comments PARTIAL THROMBOPLASTIN TIME 92.7 seconds 22.5-36.0 H (BEAKER) (test code = 760) BASIC METABOLIC [id number] 07:14:28 Test Item Value Reference Range Interpretation [...] S NOT APPLICABLE FOR DIALYSIS PATIEN TS. Neck Cutter ID - THEE [id number] 07:07:43 Test Item Value Reference Range Interpretation Comments PHOSPHORUS (BEAKER) (test code = 4.0 mg/dL 2.3-4.7 604) Neck Cutter ID - THEE [id number] 07:07:42 Test Item Value Reference Range Interpretation Comments MAGNESIUM (BEAKER) (test code = 1.9 mg/dL 1.6-2.6 627) Neck Cutter ID - THEE GPOCT-GLUCOSE [id number] 06:22:47 Test Item Value Reference Range Interpretation Comments POC-GLUCOSE METER 83 mg/dL 70-110 : TESTED A T [facility] 6720 (BEAKER) (test code = [place], 1538) 22047: Neck Cutter/Techni daniel ID = [id number] for MIGUELITO CAMPUZANO PROTHROMBIN TIME/[id number] 06:05:39 Test Item Value Reference Range Interpretation Comments PROTIME (BEAKER) 15.4 seconds 11.9-14.2 H (test code = 759) INR (BEAKER) (test 1.24 See_Comment [Automat ed message] code = 370) The system [employer] generated this result transmitted ref erence range: <=5.90. The reference range was not used to int erpret this result as normal/abnormal . RECOMMENDED COUMADIN/WARFARIN INR THERAPY RANGESSTANDARD DOSE: 2.0 - 3.0 Includes: PROPHYLAXIS for venous thrombosis, systemic embolization; TREATMENT for venous thrombosis and/or pulmonary embolus.HIGH RISK: Target INR is 2.5-3.5 for patients with mechanical heart valves.CBC W/PLT COUNT & AUTO [id number] 05:55:10 Test Item Value Reference Range Interpretation [...] 0-1 PERCENT (BEAKER) (test code = 2801) [id number] 01:10:08 Test Item Value Reference Range Interpretation Comments PARTIAL THROMBOPLASTIN TIME 51.7 seconds 22.5-36.0 H (BEAKER) (test code = 760) POCT-GLUCOSE [id number] 23:49:41 Test Item Value Reference Range Interpretation Comments POC-GLUCOSE METER 74 mg/dL 70-110 : TESTED A T [facility] 67[address] (BEAKER) (test code = [place], 1538) 80781: Neck Cutter/Techni daniel ID = [id number] for MIGUELITO CAMPUZANO CBC (HEMOGRAM ONLY)2021-09-08 18:13:52 [...] 0-0 (BEAKER) (test code = 413) POCT-GLUCOSE [id number] 17:34:42 Test Item Value Reference Range Interpretation Comments POC-GLUCOSE METER 78 mg/dL 70-110 : TESTED A T [facility] 6720 (BEAKER) (test code = [facility], 1538) 21700: Neck Cutter/Techni daniel ID = [id number] for [place], [employer] [id number] 16:13:30 Test Item Value Reference Range Interpretation Comments PARTIAL THROMBOPLASTIN TIME 50.8 seconds 22.5-36.0 H (BEAKER) (test code = 760) [id number] 14:57:35 Test Item Value Reference Range Interpretation Comments PARTIAL THROMBOPLASTIN TIME > seconds 22.5-36.0 HH (BEAKER) (test code = 760) POCT-GLUCOSE [id number] 12:28:52 Test Item Value Reference Range Interpretation Comments POC-GLUCOSE METER 88 mg/dL 70-110 : TESTED A T [facility] 6720 (BEAKER) (test code = [facility], 1538) [address]: Neck Cutter/Techni daniel ID = [id number] for [place], [facility] [id number] 07:11:35 Test Item Value Reference Range Interpretation Comments PARTIAL THROMBOPLASTIN TIME 55.9 seconds 22.5-36.0 H (BEAKER) (test code = 760) [id number] 22:36:09 Test Item Value Reference Range Interpretation Comments PARTIAL THROMBOPLASTIN TIME 106.1 seconds 22.5-36.0 H (BEAKER) (test code = 760) [id number] 20:46:48 Test Item Value Reference Range Interpretation Comments PARTIAL THROMBOPLASTIN TIME > seconds 22.5-36.0 HH (BEAKER) (test code = 760) [id number] 11:12:06 Test Item Value Reference Range Interpretation Comments PARTIAL THROMBOPLASTIN TIME 89.5 seconds 22.5-36.0 H (BEAKER) (test code = 760) [id number] 09:44:23 Test Item Value Reference Range Interpretation Comments PARTIAL THROMBOPLASTIN TIME 154.4 seconds 22.5-36.0 HH (BEAKER) (test code = 760) [id number] 00:28:57 Test Item Value Reference Range Interpretation Comments PARTIAL THROMBOPLASTIN TIME 63.4 seconds 22.5-36.0 H (BEAKER) (test code = 760) [id number] 17:46:24 Test Item Value Reference Range Interpretation Comments PARTIAL THROMBOPLASTIN TIME 46.8 seconds 22.5-36.0 H (BEAKER) (test code = 760) [id number] 09:28:45 Test Item Value Reference Range Interpretation Comments PARTIAL THROMBOPLASTIN TIME 31.6 seconds 22.5-36.0 (BEAKER) (test code = 760) [id number] 07:27:38 Test Item Value Reference Range Interpretation Comments PARTIAL THROMBOPLASTIN TIME 186.4 seconds 22.5-36.0 HH (BEAKER) (test code = 760) [id number] 04:56:25 Test Item Value Reference Range Interpretation Comments PARTIAL THROMBOPLASTIN TIME 138.6 seconds 22.5-36.0 H (BEAKER) (test code = 760) [id number] 21:52:53 Test Item Value Reference Range Interpretation [...] 0-0 (BEAKER) (test code = 413) POCT-GLUCOSE [id number] 11:22:59 Test Item Value Reference Range Interpretation Comments POC-GLUCOSE METER 60 mg/dL 70-110 L : TESTED A T [facility] (BEAKER) (test code = [place], 1538) [address]: Neck Cutter/Techni daniel ID = [id number] for ROSSANA SALINAS BASIC METABOLIC [id number] 06:09:12 Test Item Value Reference Range Interpretation [...] S NOT APPLICABLE FOR DIALYSIS PATIEN TS. Neck Cutter ID - BANDAR MCBC W/PLT COUNT & AUTO [id number] 05:37:39 Test Item Value Reference Range Interpretation [...] PERCENT (BEAKER) (test code = 2801) SARS-COV2/RT-PCR ([facility])2021-09-03 16:03:43 Test Item Value Reference Range Interpretation Comments SARS-COV2/RT-PCR (test Negative Not Detected, Negative, code = 4911657) See external report for linked test SARS-COV-2 PERFORMING [facility] (test code = 5857105) Negative result for this test determines that [...] justifying the authorization of the emergency use ofin vitro diagnostic tests for detection and/or diagnosis of COVID-19 is terminated under Section 564(b)(2) of the Act or the EUA is revoked under Section 564(g) of the Act.Fact Sheet for Healthcare Prov iders:https://www.[employer]/sites/default/files/product/documents/Fact_Sheet_HC _Skwacbetc_Yxvq_EVLL-FiV-0.pdfFact Sheet for Healthcare Patients:https://www.[employer]/sites/default/files/product/docume nts/Cqup_Xllzv_Qmtqjxfx_Ltot_SJSO-GgI-5.pdfPerforming Laboratory:[address], [place] [address]NZHUA METABOLIC PANEL 2021-09-02 04:27:05 Test Item Value [...] S NOT APPLICABLE FOR DIALYSIS PATIEN TS. Neck Cutter ID - BANDAR [id number] 04:23:13 Test Item Value Reference Range Interpretation Comments MAGNESIUM (BEAKER) (test code = 2.2 mg/dL 1.6-2.6 627) Neck Cutter ID - BANDAR [id number] 04:23:13 Test Item Value Reference Range Interpretation Comments PHOSPHORUS (BEAKER) (test code = 3.9 mg/dL 2.3-4.7 604) Neck Cutter ID - BANDAR MCBC W/PLT COUNT & AUTO [id number] 04:13:07 Test Item Value Reference Range Interpretation [...] (BEAKER) (test code = 2801) Paraneoplastic Panel, [id number] 09:50:29 Test Item Value Reference Range Interpretation Comments PARANEOPLASTIC ANTIBODY See scanned report (test code = 87973279) CECELIA (test code = CECELIA) See scanned report [facility], [id number] 09:50:29 Test Item Value Reference Range Interpretation Comments PARANEOPLASTIC ANTIBODY See scanned report (test code = 82492032) CCEELIA (test code = CECELIA) See scanned report [facility] CenterPARANEOPLASTIC AB EVAL W/ REFLEX TITER & LB, CSF 2021-09-01 09:50:29 Test Item Value Reference Range Interpretation Comments PARANEOPLASTIC ANTIBODY See scanned report (test code = 61578205) See scanned reportPOCT-GLUCOSE [id number] 16:50:16 Test Item Value Reference Range Interpretation Comments POC-GLUCOSE METER 84 mg/dL 70-110 : TESTED A T [facility] 6720 (BEAKER) (test code = ShareTheYASMINE Brown [facility], 1538) 21493: Neck Cutter/Techni daniel ID = [id number] for MICHELLE N, THOMAS POCT-GLUCOSE [id number] 12:37:05 Test Item Value Reference Range Interpretation Comments POC-GLUCOSE METER 109 mg/dL 70-110 : TESTED A T [facility] 6720 (BEAKER) (test code = ANIL Brown [facility], 1538) 43923: Neck Cutter/Techni daniel ID = [id number] for KENNEDY PADMINITHOMAS VALPROIC ACID LEVEL, [id number] 12:00:18 Test Item Value Reference Range Interpretation Comments VALPROIC ACID TOTAL (BEAKER) (test 53 ug/mL 50-100 code = 924) Therapeutic range for some clinical conditions may be >100 ug/mLOperator ID - BANDRA MPOCT-GLUCOSE [id number] 06:08:37 Test Item Value Reference Range Interpretation Comments POC-GLUCOSE METER 82 mg/dL 70-110 : TESTED A T [facility] (BEAKER) (test code = [place], 1538) 0[address]: Neck Cutter/Techni daniel ID = [id number] for MARGARITO CAMPUZANO BASIC METABOLIC [id number] 03:48:13 Test Item Value Reference Range Interpretation [...] S NOT APPLICABLE FOR DIALYSIS PATIEN TS. Neck Cutter ID - BANDAR [id number] 03:29:08 Test Item Value Reference Range Interpretation Comments MAGNESIUM (BEAKER) (test code = 2.2 mg/dL 1.6-2.6 627) Neck Cutter ID - BANDAR [id number] 03:29:08 Test Item Value Reference Range Interpretation Comments PHOSPHORUS (BEAKER) (test code = 2.9 mg/dL 2.3-4.7 604) Neck Cutter ID - BANDAR [id number] 03:18:24 Test Item Value Reference Range Interpretation Comments PARTIAL THROMBOPLASTIN TIME 63.2 seconds 22.5-36.0 H (BEAKER) (test code = 760) CBC W/PLT COUNT & AUTO [id number] 03:07:32 Test Item Value Reference Range Interpretation [...] PERCENT (BEAKER) (test code = 2801) POCT-GLUCOSE [id number] 23:42:07 Test Item Value Reference Range Interpretation Comments POC-GLUCOSE METER 81 mg/dL 70-110 : TESTED A T [facility] 6720 (BEAKER) (test code = ANIL Brown [facility], 1538) 77725: Neck Cutter/Techni daniel ID = [id number] for MARGARITO CAMPUZANO POCT-GLUCOSE [id number] 18:26:13 Test Item Value Reference Range Interpretation Comments POC-GLUCOSE METER 87 mg/dL 70-110 : TESTED A T [facility] 6720 (BEAKER) (test code = ANIL Brown [facility], 1538) 44814: Neck Cutter/Techni daniel ID = [id number] for KWABENA MENDOZA RAD, CHEST, 1 VIEW, NON [id number] 12:12:00Reason for exam:->Mechanical VentilationShould this be performed at the bedside?->Yes [facility] : 1965 Sex: FFINAL REPORT [...] volumes with perivascular crowding. Signed: Fabian Wild Verified Date/Time: 08/30/2021 12:12:03 Reading Location: [facility] Reading Room POCT-GLUCOSE [id number] 11:48:25 Test Item Value Reference Range Interpretation Comments POC-GLUCOSE METER 83 mg/dL 70-110 : Notified RN/MD: TESTED (BEAKER) (test code = AT [facility] 67[address] [facility] 1538) [facility], 770 30: Neck Cutter/Techni daniel ID = [id number] for KWABENA MENDOZA POCT-GLUCOSE [id number] 06:02:06 Test Item Value Reference Range Interpretation Comments POC-GLUCOSE METER 83 mg/dL 70-110 : TESTED A T [facility] (test code = ANIL Brown [facility], 1538) 04051: Neck Cutter/Techni daniel ID = [id number] for MARGARITO CAMPUZANO BASIC METABOLIC [id number] 05:17:36 Test Item Value Reference Range Interpretation [...] 697) EGFR (BEAKER) (test 15 mL/min/1.73 ESTIMA ASLLY GFR IS code = 1092) sq m NOT ACCURATE CREATININE CLEARANCE IN PREDICTING GLOMERULAR FILTRATION RATE . ESTIMATED GFR I S NOT APPLICABLE FOR DIALYSIS PATIEN TS. Neck Cutter ID - [id number] 05:16:29 Test Item Value Reference Range Interpretation Comments PHOSPHORUS (BEAKER) (test code = 2.2 mg/dL 2.3-4.7 L 604) Neck Cutter ID - [id number] 05:16:28 Test Item Value Reference Range Interpretation Comments MAGNESIUM (BEAKER) (test code = 2.0 mg/dL 1.6-2.6 627) Neck Cutter ID - DBPOCT-GLUCOSE [id number] 04:55:04 Test Item Value Reference Range Interpretation Comments POC-GLUCOSE METER 84 mg/dL 70-110 : TESTED A T [facility] 67[facility] (BEAKER) (test code = [place], 1538) 28[address]: Neck Cutter/Techni daniel ID = [id number] for MARGARITO CAMPUZANO [id number] 04:04:18 Test Item Value Reference Range Interpretation Comments PARTIAL THROMBOPLASTIN TIME 81.3 seconds 22.5-36.0 H (BEAKER) (test code = 760) CBC W/PLT COUNT & AUTO [id number] 03:53:12 Test Item Value Reference Range Interpretation [...] PERCENT (BEAKER) (test code = 2801) POCT-GLUCOSE [id number] 23:51:43 Test Item Value Reference Range Interpretation Comments POC-GLUCOSE METER 72 mg/dL 70-110 : [facility] ([facility] (test code = [facility], 1538) [address]8485: Neck Cutter/Techni daniel ID = [id number] for MARGARITO CAMPUZANO [id number] 22:34:43 Test Item Value Reference Range Interpretation Comments PARTIAL THROMBOPLASTIN TIME 93.8 seconds 22.5-36.0 H (BEAKER) (test code = 760) POCT-GLUCOSE [id number] 18:22:56 Test Item Value Reference Range Interpretation Comments POC-GLUCOSE METER 90 mg/dL 70-110 : TESTED A T [facility] 6720 (BEAKER) (test code = [facility], 1538) 79965: Neck Cutter/Techni daniel ID = [id number] for KWABENA MENDOZA [id number] 15:34:45 Test Item Value Reference Range Interpretation Comments PARTIAL THROMBOPLASTIN TIME 116.4 seconds 22.5-36.0 H (BEAKER) (test code = 760) RAD, ABDOMEN/KUB, 1 VIEW [id number] 13:45:00Reason for exam:->NG placement [facility] : 1965 Sex: FFINAL REPORT RAD, ABDOMEN/KUB, 1 VIEW AP CLINICAL INDICATION: NG placement COMPARISON: None TECHNIQUE: Frontal radiograph(s) of the abdomen. FINDINGS: The bowel gas pattern is nonobstructive. The feeding tube tip overlies the gastroduodenal junction. Evaluation for free air islimited by portable supine technique. Within these limitations, no free air is identified. Nonspecific catheter overlies the upper pelvis. IMPRESSION: The feeding tube tip overlies the gastroduodenal junction. Signed: Fabian Wild MDReport Verified Date/Time: 08/29/2021 13:45:52 Reading Location: [facility] Radiology Reading Room , CHEST, 1 VIEW, NON [id number] 12:35:00Reason for exam:->Mechanical VentilationShould this be performed at the bedside?->Yes [facility] : 1965 Sex: FFINAL REPORT [...] Wild Verified Date/Time: 08/29/2021 12:35:35 Reading Location: [facility] Radiology Reading Room -GLUCOSE [id number] 12:00:31 Test Item Value Reference Range Interpretation Comments POC-GLUCOSE METER 99 mg/dL 70-110 : TESTED A T [facility] ([facility] (test code = ANIL Brown [facility], 1538) 10296: Neck Cutter/Techni daniel ID = [id number] for KWABENA MENDOZA [id number] 07:13:11 Test Item Value Reference Range Interpretation Comments PARTIAL THROMBOPLASTIN TIME 60.8 seconds 22.5-36.0 H (BEAKER) (test code = 760) COMPREHENSIVE METABOLIC [id number] 05:57:39 Test Item Value Reference Range Interpretation [...] S NOT APPLICABLE FOR DIALYSIS PATIEN TS. Neck Cutter ID - [id number] 05:51:57 Test Item Value Reference Range Interpretation Comments MAGNESIUM (BEAKER) (test code = 2.3 mg/dL 1.6-2.6 627) Neck Cutter ID - [id number] 05:51:57 Test Item Value Reference Range Interpretation Comments PHOSPHORUS (BEAKER) (test code = 2.4 mg/dL 2.3-4.7 604) Neck Cutter ID - DBPOCT-GLUCOSE [id number] 05:44:30 Test Item Value Reference Range Interpretation Comments POC-GLUCOSE METER 87 mg/dL 70-110 : TESTED A T [facility] (BEAKER) (test code = [place], 1538) 33640: Neck Cutter/Techni daniel ID = [id number] for Jared hooper Gómez CBC W/PLT COUNT & AUTO [id number] 04:08:39 Test Item Value Reference Range Interpretation [...] (BEAKER) (test code = 2801) Blood gas, [id number] 04:05:56 Test Item Value Reference Range Interpretation Comments pH, Arterial (test code 7.40 7.35-7.45 = 2744-1) pCO2, Arterial (test 40 See_Comment [Autom ated code = 2018-10) message] The system which generated this result [...] 21 Lab Interpretation Abnormal (test code = 88120-6) [facility], [id number] 04:05:56 Test Item Value Reference Range Interpretation Comments pH, Arterial (test code 7.40 7.35-7.45 = 2744-1) pCO2, Arterial (test 40 See_Comment [Autom ated code = 2018-10) message] The system which generated this result [...] 21 Lab Interpretation Abnormal (test code = 03996-2) [facility] Center[facility], [id number] 04:05:56 Test Item Value Reference Range Interpretation [...] 21-29 = 388) BASE EXCESS ARTERIAL (BEAKER) -0.8 mmol/L -2.0-3.0 (test code = 387) PATIENT TEMPERATURE (BEAKER) 36.6 (test code = 1818) FIO2 (BEAKER) (test code = 1819) 21.0 [id number] 00:56:24 Test Item Value Reference Range Interpretation Comments PARTIAL THROMBOPLASTIN TIME 71.9 seconds 22.5-36.0 H (BEAKER) (test code = 760) POCT-GLUCOSE [id number] 00:41:07 Test Item Value Reference Range Interpretation Comments POC-GLUCOSE METER 91 mg/dL 70-110 : TESTED A T [facility] 6720 (BEAKER) (test code = [facility], 153) 03269: Neck Cutter/Techni daniel ID = [id number] for Gómez Choudhary [id number] 22:35:43 Test Item Value Reference Range Interpretation Comments PARTIAL THROMBOPLASTIN TIME 126.1 seconds 22.5-36.0 H (BEAKER) (test code = 760) POCT-GLUCOSE [id number] 18:20:04 Test Item Value Reference Range Interpretation Comments POC-GLUCOSE METER 95 mg/dL 70-110 : TESTED A T [facility] 6720 (BEAKER) (test code = [facility], 153) 75164: Neck Cutter/Techni daniel ID = [id number] for AshtynEstelle whitt [id number] 13:35:16 Test Item Value Reference Range Interpretation Comments PARTIAL THROMBOPLASTIN TIME 96.0 seconds 22.5-36.0 H (BEAKER) (test code = 760) POCT-GLUCOSE [id number] 12:13:53 Test Item Value Reference Range Interpretation Comments POC-GLUCOSE METER 107 mg/dL 70-110 : TESTED A T [facility] 6720 (BEAKER) (test code = ANIL Brown [place], 1538) [address]: Neck Cutter/Techni daniel ID = [id number] for Mary Arango POCT-GLUCOSE [id number] 07:28:56 Test Item Value Reference Range Interpretation Comments POC-GLUCOSE METER 120 mg/dL 70-110 H : TESTED A T [facility] 6720 (BEAKER) (test code = [facility] Kevin [place], 1538) [address]: Neck Cutter/Techni daniel ID = [id number] for MIGUEL VILLANUEVA BLOOD GAS, [id number] 05:13:53 Test Item Value Reference Range Interpretation [...] (test code = 1819) 21.0 BASIC METABOLIC [id number] 04:56:46 Test Item Value Reference Range Interpretation [...] S NOT APPLICABLE FOR DIALYSIS PATIEN TS. Neck Cutter ID - [id number] 04:55:26 Test Item Value Reference Range Interpretation Comments MAGNESIUM (BEAKER) (test code = 2.1 mg/dL 1.6-2.6 627) Neck Cutter ID - [id number] 04:55:26 Test Item Value Reference Range Interpretation Comments PHOSPHORUS (BEAKER) (test code = 1.7 mg/dL 2.3-4.7 L 604) Neck Cutter ID - DBPT/[id number] 04:45:02 Test Item Value Reference Range Interpretation [...] mechanical heart valves.RAD, CHEST, 1 VIEW, NON [id number] 04:45:00Reason for exam:->Mechanical VentilationShould this be performed at the bedside?->Yes [facility] 1965 Sex: FFINAL REPORT RAD, CHEST, 1 VIEW, NON DEPT INDICATION: Mechanical VentilationCOMPARISON: Prior day's exam FINDINGS: Portable frontal view of the chest. IMPRESSION: Support Lines: Stable. Lungs and pleura: No airspace consolidation or effusion. No pneumothorax. Heart and mediastinum: Stable contours. Additional findings: None. Signed: Daiana Rudd MDReport Verified Date/Time: 08/28/2021 04:45:57 CBC W/PLT COUNT & AUTO [id number] 04:33:07 Test Item Value Reference Range Interpretation [...] PERCENT (BEAKER) (test code = 2801) POCT-GLUCOSE [id number] 23:58:48 Test Item Value Reference Range Interpretation Comments POC-GLUCOSE METER 112 mg/dL 70-110 H : TESTED A T [facility] (BEAKER) (test code = MICHAELLEYASMINE Brown [facility], 1538) 60760: Neck Cutter/Techni daniel ID = [id number] for Jamel Wallis [id number] 21:44:25 Test Item Value Reference Range Interpretation Comments PROTIME (BEAKER) (test 14.0 seconds 11.9-14.2 code = 759) INR (BEAKER) (test 1.10 See_Comment [Automat ed code = 370) message] The sy stem which generated this result transmitted reference range : <=5.90. The reference range was not used to interpret this result as normal/abnormal . PARTIAL THROMBOPLASTIN 52.3 seconds 22.5-36.0 H TIME (BEAKER) (test code = 760) RECOMMENDED COUMADIN/WARFARIN INR THERAPY RANGESSTANDARD DOSE: 2.0 - 3.0 Includes: PROPHYLAXIS for venous thrombosis, systemic embolization; TREATMENT for venous thrombosis and/or pulmonary embolus.HIGH RISK: Target INR is 2.5-3.5 for patients with mechanical heart valves.VALPROIC ACID LEVEL, [id number] 20:58:58 Test Item Value Reference Range Interpretation Comments VALPROIC ACID TOTAL (BEAKER) (test 61 ug/mL 50-100 code = 924) Therapeutic range for some clinical conditions may be >100 ug/mLOperator ID - DBPOCT-GLUCOSE [id number] 17:42:41 Test Item Value Reference Range Interpretation Comments POC-GLUCOSE METER 94 mg/dL 70-110 : TESTED A T [facility] 6720 (BEAKER) (test code = [facility], 1538) 73706: Neck Cutter/Techni daniel ID = [id number] for Thi Julian [id number] 15:29:15 Test Item Value Reference Range Interpretation Comments PARTIAL THROMBOPLASTIN TIME 74.7 seconds 22.5-36.0 H (BEAKER) (test code = 760) POCT-GLUCOSE [id number] 12:32:00 Test Item Value Reference Range Interpretation Comments POC-GLUCOSE METER 95 mg/dL 70-110 : TESTED A T [facility] 6720 (BEAKER) (test code = [facility], 1538) 61734: Neck Cutter/Techni daniel ID = [id number] for Julio Cesar morrison Nguyen POCT-GLUCOSE [id number] 10:00:37 Test Item Value Reference Range Interpretation Comments POC-GLUCOSE METER 124 mg/dL 70-110 H : TESTED A T [facility] 6720 (ReachLocalAKER) (test code = [facility], 1538) 12738: Neck Cutter/Techni daniel ID = [id number] for Morgan Estelle choi RAD, CHEST, 1 VIEW, NON [id number] 08:06:00Reason for exam:->Mechanical VentilationShould this be performed at the bedside?->Yes [facility] : 1965 Sex: FFINAL REPORT [...] surgical changes. Additional findings: None. Signed: Ruth Benítezeport Verified Date/Time: 08/27/2021 08:06:25 BASIC METABOLIC [id number] 07:55:43 Test Item Value Reference Range Interpretation [...] S NOT APPLICABLE FOR DIALYSIS PATIEN TS. Neck Cutter ID - BANDAR [id number] 07:50:28 Test Item Value Reference Range Interpretation Comments PHOSPHORUS (BEAKER) 1.7 mg/dL 2.3-4.7 L Specimen slightly (test code = 604) hemolyzed Neck Cutter ID - BANDAR [id number] 07:50:27 Test Item Value Reference Range Interpretation Comments MAGNESIUM (BEAKER) 2.0 mg/dL 1.6-2.6 Specimen slightly (test code = 627) hemolyzed Neck Cutter ID - BANDAR [id number] 07:27:38 Test Item Value Reference Range Interpretation [...] for patients with mechanical heart valves.BLOOD GAS, [id number] 07:25:05 Test Item Value Reference Range Interpretation [...] 1819) 21.0 CBC W/PLT COUNT & AUTO [id number] 07:17:29 Test Item Value Reference Range Interpretation [...] PERCENT (BEAKER) (test code = 2801) POCT-GLUCOSE [id number] 07:13:25 Test Item Value Reference Range Interpretation Comments POC-GLUCOSE METER 63 mg/dL 70-110 L : TESTED A T [facility] 6720 (BEAKER) (test [facility] = [facility], 1538) 84999: Neck Cutter/Techni daniel ID = [id number] for MIGUEL VALENCIA POCT-GLUCOSE [id number] 03:43:12 Test Item Value Reference Range Interpretation Comments POC-GLUCOSE METER 117 mg/dL 70-110 H : [facility] (BEAKER) (test code = [facility] Kevin [facility], 1538) 61759: Neck Cutter/Techni daniel ID = [id number] for MIGUEL VILLANUEVA Prepare [id number] 23:55:00 Test Item Value Reference Range Interpretation Comments CROSSMATCH (test code = 2264) COMPATIBLE Unit ABO (test code = O Pos 6525469) UNIT NUMBER (test code = [id number] 934-0) Status (test code = 4199985) TX_TIMEINCHART Blood Bank Product (test code RED BLOOD CELLS = 2263) PRODUCT CODE (test code = Q0572D13 933-2) [facility] CenterPrepare [id number] 23:55:00 Test Item Value Reference Range Interpretation Comments CROSSMATCH (test code = 2264) COMPATIBLE Unit ABO (test code = O Pos 1702520) UNIT NUMBER (test code = [id number] 934-0) Status (test code = 1564888) TX_TIMEINCHART Blood Bank Product (test code RED BLOOD CELLS = 2263) PRODUCT CODE (test code = W4263R06 933-2) [facility] CenterPOCT-GLUCOSE [id number] 18:21:30 Test Item Value Reference Range Interpretation Comments POC-GLUCOSE METER 121 mg/dL 70-110 H : Notified RN/MD: (CARLY) (test code = TESTED AT [facility] 67[facility] 1538) [facility], [address]: Neck Cutter/Techni daniel ID = [id number] for ROXANNE CHEN TIKEYA VALPROIC ACID LEVEL, [id number] 17:02:29 Test Item Value Reference Range Interpretation Comments VALPROIC ACID TOTAL (BEAKER) (test 38 ug/mL 50-100 L code = 924) Therapeutic range for some clinical conditions may be >100 ug/mLOperator ID - BSIgG Index (CSF + Blood)2021-08-26 13:15:35 Test Item Value Reference Range Interpretation Comments Synthesis Rate IgG, -2.3 See_Comment [Automa sally CSF (test code = message] e ) system which generated this result transmit sally reference range : -9.9 TO +3.3 mg /24 h. The referenc e range was not u sed to interpret th is result as normal/abnormal . Igg Index,Csf (test 0.58 <0.66 code = 0537896) Albumin, CSF (test 5.1 mg/dL 8.0-42.0 L code = 9819181) IgG, CSF (test code 1.2 mg/dL 0.8-7.7 = ) IMMUNOGLOBULIN G, 900 mg/dL 600-1640 SERUM (test code = 0333863) Albumin, Serum (test 2.2 g/dL 3.5-5.2 L The Ig G Synthesis code = 0666032) rate, CSF an d IgG index, CSF are two formulae forestimating t he amount of IgG produced in the central nervous system. Evidenc eof increased synthesis of Ig G provides suppor t for the diagnos is of multiplescleros is. CECELIA (test code = Performing Lab EZ CECELIA) [facility] [address] [place] [address] Shirlene Fernandes MD, PhD, GUNJAN Lab Interpretation Abnormal (test code = 53716-0) [facility] CenterIg[facility] (CSF + Blood)2021-08-26 13:15:35 Test Item Value Reference Range Interpretation Comments Synthesis Rate IgG, -2.3 See_Comment [Automa sally CSF (test code = message] e ) system which generated this result transmit sally reference range : -9.9 TO +3.3 mg /24 h. The referenc e range was not u sed to interpret th is result as normal/abnormal . Igg Index,Csf (test 0.58 <0.66 code = 1999955) Albumin, CSF (test 5.1 mg/dL 8.0-42.0 L code = 4779842) IgG, CSF (test code 1.2 mg/dL 0.8-7.7 = 5061131) IMMUNOGLOBULIN G, 900 mg/dL 600-1640 SERUM (test code = 3081208) Albumin, Serum (test 2.2 g/dL 3.5-5.2 L The Ig G Synthesis code = 0844306) rate, CSF an d IgG index, CSF are two formulae forestimating t he amount of IgG produced in the central nervous system. Evidenc eof increased synthesis of Ig G provides suppor t for the diagnos is of multiplescleros is. CECELIA (test code = Performing Lab EZ CECELIA) [employer] [facility] [address] [place] [address] Shirlene Fernandes MD, PhD, GUNJAN Lab Interpretation Abnormal (test code = 21592-3) [facility] CenterPO[facility] [id number] 13:11:52 Test Item Value Reference Range Interpretation Comments POC-GLUCOSE METER 131 mg/dL 70-110 H : TESTED A T [facility] 67[facility] (BEAKER) (test code = ANIL Brown [facility], 1538) [address]221: Neck Cutter/Techni daniel ID = [id number] for KWABENA MOORE [id number] 10:32:48 Test Item Value Reference Range Interpretation Comments PARTIAL THROMBOPLASTIN TIME 80.4 seconds 22.5-36.0 H (BEAKER) (test code = 760) RAD, CHEST, 1 VIEW, NON [id number] 08:24:00Reason for exam:->Mechanical VentilationShould this be performed at the bedside?->Yes [facility] : 1965 Sex: FFINAL REPORT [...] Benítez Verified Date/Time: 08/26/2021 08:24:59 Reading Location: [facility] Radiology Reading Room POCT-GLUCOSE [id number] 05:37:42 Test Item Value Reference Range Interpretation Comments POC-GLUCOSE METER 109 mg/dL 70-110 : TESTED A T [facility] 6720 (BEAKER) (test code [facility], = 1538) 78049: Neck Cutter/Techni daniel ID = [id number] for DEVIN OLVERA BASIC METABOLIC [id number] 05:34:54 Test Item Value Reference Range Interpretation [...] S NOT APPLICABLE FOR DIALYSIS PATIEN TS. Neck Cutter ID - DANA [id number] 05:33:11 Test Item Value Reference Range Interpretation Comments PHOSPHORUS (BEAKER) (test code = 1.8 mg/dL 2.3-4.7 L 604) Neck Cutter ID - DANA [id number] 05:33:10 Test Item Value Reference Range Interpretation Comments MAGNESIUM (BEAKER) (test code = 2.1 mg/dL 1.6-2.6 627) Neck Cutter ID - DANA [id number] 05:07:34 Test Item Value Reference Range Interpretation Comments PARTIAL THROMBOPLASTIN TIME 88.6 seconds 22.5-36.0 H (BEAKER) (test code = 760) BLOOD GAS, [id number] 05:04:51 Test Item Value Reference Range Interpretation [...] 1819) 21.0 CBC W/PLT COUNT & AUTO [id number] 01:02:26 Test Item Value Reference Range Interpretation [...] PERCENT (BEAKER) (test code = 2801) POCT-GLUCOSE [id number] 23:37:00 Test Item Value Reference Range Interpretation Comments POC-GLUCOSE METER 195 mg/dL 70-110 H : TESTED A T [facility] (BEAKER) (test code = [place], 1538) [address]: Neck Cutter/Techni daniel ID = [id number] for TOM ALEGRIA [id number] 21:52:26 Test Item Value Reference Range Interpretation Comments PARTIAL THROMBOPLASTIN TIME 102.9 seconds 22.5-36.0 H (CARLY) (test code = 760) SARS-COV2/RT-PCR ([facility])2021-08-25 21:18:24 Test Item Value Reference Range Interpretation Comments SARS-COV2/RT-PCR (test code = Negative Negative 1260487) Negative result for this test determines that [...] 564(g) of the Act.Testing was performed using scenios SARS-CoV-2 assay.Fact Sheet for Healthcare Providers:https://www.[employer].SystematicBytes/esther/RT SARS-CoV-2 HCP Fact Sheet 51- 532558.pdfFact Sheet for Healthcare Patients:https://www.[employer]/esther/RT SARS-CoV-2 Patient Fact Sheet EN 51-479922U7.pdfPOCT-GLUCOSE [id number] 18:25:16 Test Item Value Reference Range Interpretation Comments POC-GLUCOSE METER 247 mg/dL 70-110 H : TESTED A T [facility] (CARLY) (test code = [place], 1538) [address]: Neck Cutter/Techni daniel ID = [id number] for LEIGHTON TOWNSEND West Nile Virus, CSF, IgG and [id number] 15:54:50 Test Item Value Reference Range Interpretation Comments West Nile <0.90 REFERENCE RANGE : <0.90 Ab,Igm (test INTERPRETIVE CR ITERIA code = <0.90 Antibody not 4144812) detected 0.90 - 1.10 Equivocal >1.10 Antibody [...] (test Performing Lab code = CECELIA) *QDID [employer] [facility] [address] [place] [address] Shirlene Fernandes MD, PhD [facility] CenterWest [facility] Virus, CSF, IgG and [id number] 15:54:50 Test Item Value Reference Range Interpretation Comments West Nile <0.90 REFERENCE RANGE : <0.90 Ab,Igm (test INTERPRETIVE CR ITERIA code = <0.90 Antibody not 4999285) detected 0.90 - 1.10 Equivocal >1.10 Antibody [...] (test Performing Lab code = CECELIA) *QDID [employer] [facility] [address] [place] [address] Shirlene Fernandes MD, PhD [facility] CenterAPTT2022-06-02 14:48:58 Test Item Value Reference Range Interpretation Comments PARTIAL THROMBOPLASTIN TIME 41.5 seconds 22.5-36.0 H (BEAKER) (test code = 760) POC-Glucose [id number] 12:57:53 Test Item Value Reference Range Interpretation Comments POC-Glucose Meter (test 106 mg/dL 70-110 : TE STED AT [facility] code = 1538) 6720 [facility], 770 30: Neck Cutter/Techni daniel ID = [id number] for Lay Johns a Lab Interpretation (test Normal code = 03259-7) [facility] CenterPO[facility]SE [id number] 12:57:53 Test Item Value Reference Range Interpretation Comments POC-GLUCOSE METER 106 mg/dL 70-110 : TESTED A T [facility] ([facility]) (test code = BERTYASMINE R [facility], 1538) [address]: Neck Cutter/Techni daniel ID = [id number] for Nguyen Foster Prepare Leuko-Red [id number] 12:14:00 Test Item Value Reference Range Interpretation Comments CROSSMATCH (test code = 2264) COMPATIBLE Unit ABO (test code = O Pos 1166191) UNIT NUMBER (test code = [id number] 934-0) Status (test code = 6887461) READY Blood Bank Product (test code RED BLOOD CELLS = 2263) PRODUCT CODE (test code = C3686T42 933-2) [facility] Center[facility]uk[facility]-Red [id number] 12:14:00 Test Item Value Reference Range Interpretation Comments CROSSMATCH (test code = 2264) COMPATIBLE Unit ABO (test code = O Pos 0640234) UNIT NUMBER (test code = [id number] 934-0) Status (test code = 9390151) READY Blood Bank Product (test code RED BLOOD CELLS = 2263) PRODUCT CODE (test code = Y0604T14 933-2) [facility] Center[facility]uko-Red [id number] 12:14:00 Test Item Value Reference Range Interpretation Comments CROSSMATCH (test code = 2264) COMPATIBLE Unit ABO (test code = O Pos 6461719) UNIT NUMBER (test code = [id number] 934-0) Status (test code = 1990264) READY Blood Bank Product (test code RED BLOOD CELLS = 2263) PRODUCT CODE (test code = B0284Z21 933-2) [facility] CenterAPTT2022-06-02 11:50:59 Test Item Value Reference Range Interpretation Comments PARTIAL THROMBOPLASTIN TIME 124.7 seconds 22.5-36.0 H (BEAKER) (test code = 760) LACTIC ACID, [id number] 11:30:11 Test Item Value Reference Range Interpretation Comments LACTATE BLOOD VENOUS 0.96 mmol/L 0.50-2.20 Specime n slightly (2) (BEAKER) (test hemolyzed code = 2872) Neck Cutter ID - BSRAD, CHEST, 1 VIEW, NON [id number] 11:18:00Reason for exam:- >Mechanical VentilationShould this be performed at the bedside?->Yes [facility] : 1965 Sex: FFINAL REPORT RAD, CHEST, 1 VIEW, NON DEPT INDICATION: Mechanical VentilationCOMPARISON: Prior day's exam FINDINGS: Portable frontal view of the chest. IMPRESSION: Support Lines: ET tube tip is 2cm superior to jonny. Feeding tube descends below the diaphragm. Dialysis cathetertip overlies the right atrium. Lungs and pleura: Mild diffuse bilateral interstitial thickening. No s ignificant pneumothorax. Heart and mediastinum: Stable contours. Stable surgical changes. Additionalfindings: None. Signed: Ruth Benítez Verified Date/Time: 08/25/2021 11:18:15 Reading Location: [facility] Radiology Reading Room Electronically signed by: RUTH BENÍTEZ MD on08/25/2021 11:18 AMSputum Culture + Gram [id number] 10:08:37 Test Item Value Reference Range Interpretation Comments Result (test code = 1+ Normal respiratory 6463-4) johnny present Gram Stain Result No organisms seen (test code = 1123) [facility] [id number] 10:08:37 Test Item Value Reference Range Interpretation Comments Result (test code = 1+ Normal respiratory 6463-4) johnny present Gram Stain Result No organisms seen (test code = 1123) [facility] + Gram [id number] 10:08:37 Test Item Value Reference Range Interpretation Comments Result (test code = 1+ Normal respiratory 6463-4) johnny present Gram Stain Result No organisms seen (test code = 1123) [facility] HospitalPUTUM [facility] + GRAM [id number] 10:08:37 Test Item Value Reference Range Interpretation Comments CULTURE (BEAKER) 1+ Normal respiratory (test code = 1095) johnny present GRAM STAIN RESULT <1+ WBCs (BEAKER) (test code = 1123) GRAM STAIN RESULT No organisms seen (BEAKER) (test code = 90720) HEPATIC FUNCTION [id number] 09:14:03 Test Item Value Reference Range Interpretation [...] code = < U/L 6-55 L 347) Neck Cutter ID - BSCREATINE KINASE (CK)2021-08-25 09:01:58 Test Item Value Reference Range Interpretation Comments CREATINE KINASE TOTAL (BEAKER) (test 46 U/L 29-200 code = 380) Neck Cutter ID - BSCBC (HEMOGRAM ONLY)2021-08-25 06:27:41 Test [...] H (BEAKER) (test code = 413) POC-Glucose [id number] 06:02:24 Test Item Value Reference Range Interpretation Comments POC-Glucose Meter (test 136 mg/dL 70-110 H : TE STED AT [facility] code = 1538) [facility] [facility] [place] [address]: Neck Cutter/Techni daniel ID = [id number] for PRESTON HYATT Lab Interpretation (test Abnormal code = 34293-0) [facility] CenterPOCT-GLUCOSE [id number] 06:02:24 Test Item Value Reference Range Interpretation Comments POC-GLUCOSE METER 136 mg/dL 70-110 H : TESTED A T [facility] (BEAKER) (test code = ANIL Brown [facility], 1538) [address]: Neck Cutter/Techni daniel ID = [id number] for PRESTON HYATT [id number] 04:23:40 Test Item Value Reference Range Interpretation Comments PARTIAL THROMBOPLASTIN TIME 102.9 seconds 22.5-36.0 H (BEAKER) (test code = 760) [id number] 03:36:27 Test Item Value Reference Range Interpretation Comments PHOSPHORUS (BEAKER) (test code = 0.8 mg/dL 2.3-4.7 LL 604) Neck Cutter ID - [facility] METABOLIC [id number] 03:35:15 Test Item Value Reference Range Interpretation [...] S NOT APPLICABLE FOR DIALYSIS PATIEN TS. Neck Cutter ID - [id number] 03:31:58 Test Item Value Reference Range Interpretation Comments MAGNESIUM (BEAKER) (test code = 2.0 mg/dL 1.6-2.6 627) Neck Cutter ID - BSLACTIC ACID, [id number] 03:23:15 Test Item Value Reference Range Interpretation Comments LACTATE BLOOD VENOUS 2.91 mmol/L 0.50-2.20 H Specime n slightly (2) (BEAKER) (test hemolyzed code = 2262) Neck Cutter ID - BSCBC W/PLT COUNT & AUTO [id number] 03:22:48 Test Item Value Reference Range Interpretation [...] (BEAKER) (test code = 2801) Blood gas, [id number] 03:16:19 Test Item Value Reference Range Interpretation Comments pH, Arterial (test code 7.48 7.35-7.45 H = 2744-1) pCO2, Arterial (test 39 See_Comment [Autom ated message] code = 2019-8) The system [facility] generated this result transmit sally reference range : 35 - 45 mm Hg. The reference range was not used to interpret this result as normal/abnormal . pO2, Arterial (test 169 See_Comment H [Automa sally message] code = 2703-7) The system [facility] generated this result transmit sally reference [...] 30 Lab Interpretation Abnormal (test code = 28635-9) [facility] CenterBlood [facility], [id number] 03:16:19 Test Item Value Reference Range Interpretation Comments pH, Arterial (test code 7.48 7.35-7.45 H = 2744-1) pCO2, Arterial (test 39 See_Comment [Autom ated message] code = 2019-8) The system [facility] generated this result transmit sally reference range : 35 - 45 mm Hg. The reference range was not used to interpret this result as normal/abnormal . pO2, Arterial (test 169 See_Comment H [Automa sally message] code = 2703-7) The system [facility] generated this result transmit sally reference [...] 30 Lab Interpretation Abnormal (test code = 13952-1) [facility] CenterBLOOD GAS, [id number] 03:16:19 Test Item Value Reference Range Interpretation [...] (BEAKER) (test code = 1819) 30.0 POCT-GLUCOSE [id number] 23:21:14 Test Item Value Reference Range Interpretation Comments POC-GLUCOSE METER 219 mg/dL 70-110 H : TESTED A T [facility] (BEAKER) (test code = [place], 7659) [address]: Neck Cutter/Techni daniel ID = [id number] for Lily Khan PHENYTOIN LEVEL, [id number] 18:02:03 Test Item Value Reference Range Interpretation Comments PHENYTOIN (DILANTIN) (BEAKER) 10.8 ug/mL 10.0-20.0 (test code = 605) Neck Cutter ID - BSLactic Acid, Grhlsohy6690-12-07 17:18:10 Test Item Value Reference Range Interpretation Comments Lactate, Art (test code = 3.3 mmol/L 0.5-2.2 H 2874) ECCELIA (test code = CECELIA) Neck Cutter ID - BS Lab Interpretation (test Abnormal code = 86801-5) [facility] CenterLactic Acid, [id number] 17:18:10 Test Item Value Reference Range Interpretation Comments Lactate, Art (test code = 3.3 mmol/L 0.5-2.2 H 2874) CECELIA (test code = CECELIA) Neck Cutter ID - BS Lab Interpretation (test Abnormal code = 56129-3) [facility] CenterLactic Acid, [id number] 17:18:10 Test Item Value Reference Range Interpretation Comments Lactate, Art (test code = 3.3 mmol/L 0.5-2.2 H 2874) CECELIA (test code = CECELIA) Neck Cutter ID - BS Lab Interpretation (test Abnormal code = 98927-3) [facility] CenterLactic Acid, [id number] 17:18:10 Test Item Value Reference Range Interpretation Comments Lactate, Art (test code = 3.3 mmol/L 0.5-2.2 H 2874) CECELIA (test code = CECELIA) Neck Cutter ID - BS Lab Interpretation (test Abnormal code = 88701-1) [facility] CenterLACTIC ACID, [id number] 17:18:10 Test Item Value Reference Range Interpretation Comments LACTATE BLOOD ARTERIAL (2) 3.3 mmol/L 0.5-2.2 H (BEAKER) (test code = 2874) Neck Cutter ID - BSPOCT-GLUCOSE [id number] 17:14:39 Test Item Value Reference Range Interpretation Comments POC-GLUCOSE METER 201 mg/dL 70-110 H : TESTED A T [facility] (BEAKER) (test code = [place], 1538) [address]: Neck Cutter/Techni daniel ID = [id number] for DANA LIVE [id number] 17:11:31 Test Item Value Reference Range Interpretation Comments PARTIAL THROMBOPLASTIN TIME 34.6 seconds 22.5-36.0 (BEAKER) (test code = 760) POCT-GLUCOSE [id number] 15:32:40 Test Item Value Reference Range Interpretation Comments POC-GLUCOSE METER 205 mg/dL 70-110 H : TESTED A T [facility] (CARLY) (test code [facility], = 1538) [address]: Neck Cutter/Techni daniel ID = [id number] for VIRAJ RYDER TARA, CHEST, 1 VIEW, NON [id number] 10:11:00Reason for exam:->post picc lineShould this be performed at the bedside?->Yes [facility] : 1965 Sex: FFINAL REPORT [...] No acute bone abnormality. Signed: Sergio Ramirez Verified Date/Time: 08/24/2021 10:11:09 [facility]ATIONSF culture + gram [id number] 08:51:16 Test Item Value Reference Range Interpretation Comments Result (test code = 6463-4) No growth Gram Stain Result (test No organisms seen code = 1123) [facility] + gram [id number] 08:51:16 Test Item Value Reference Range Interpretation Comments Result (test code = 6463-4) No growth Gram Stain Result (test No organisms seen code = 1123) [facility] culture + gram [id number] 08:51:16 Test Item Value Reference Range Interpretation Comments Result (test code = 6463-4) No growth Gram Stain Result (test No organisms seen code = 1123) [facility] culture + gram [id number] 08:51:16 Test Item Value Reference Range Interpretation Comments Result (test code = 6463-4) No growth Gram Stain Result (test No organisms seen code = 1123) [facility] CULTURE + GRAM [id number] 08:51:16 Test Item Value Reference Range Interpretation Comments CULTURE (BEAKER) (test No growth code = 1095) GRAM STAIN RESULT No White blood cells (BEAKER) (test code = seen 1123) GRAM STAIN RESULT No organisms seen (BEAKER) (test code = 71940) (CELLAVISION MANUAL DIFF)2021-08-24 07:11:26 Test Item Value [...] CONCENTRATION Adequate (CELLAVISION)(BEAKER) (test code = 3438) Neck Cutter ID - dian Ang comments: Slide comments:CBC W/PLT COUNT & AUTO [id number] 07:11:25 Test Item Value Reference Range Interpretation [...] CELLS (BEAKER) (test code = 413) POCT-GLUCOSE [id number] 06:02:48 Test Item Value Reference Range Interpretation Comments POC-GLUCOSE METER 158 mg/dL 70-110 H : TESTED A T [facility] (BEAKER) (test code = [facility], 1538) [address]: Neck Cutter/Techni daniel ID = [id number] for Lily Khan BASIC METABOLIC [id number] 06:02:11 Test Item Value Reference Range Interpretation [...] S NOT APPLICABLE FOR DIALYSIS PATIEN TS. Neck Cutter ID - DANA [id number] 05:50:44 Test Item Value Reference Range Interpretation Comments PHOSPHORUS (BEAKER) (test code = 1.6 mg/dL 2.3-4.7 L 604) Neck Cutter ID - DNAA [id number] 05:50:43 Test Item Value Reference Range Interpretation Comments MAGNESIUM (BEAKER) (test code = 2.1 mg/dL 1.6-2.6 627) Neck Cutter ID - PIROSIE LBLOOD GAS, [id number] 05:48:16 Test Item Value Reference Range Interpretation [...] (BEAKER) (test code = 1819) 30.0 CALCIUM, [id number] 05:48:16 Test Item Value Reference Range Interpretation Comments CALCIUM IONIZED (BEAKER) (test 1.09 mmol/L 1.12-1.27 L code = 698) PH, BLOOD (BEAKER) (test code = 7.43 1810) [id number] 05:40:48 Test Item Value Reference Range Interpretation Comments PARTIAL THROMBOPLASTIN TIME 143.9 seconds 22.5-36.0 H (BEAKER) (test code = 760) LACTIC ACID, [id number] 05:26:27 Test Item Value Reference Range Interpretation Comments LACTATE BLOOD VENOUS (2) (BEAKER) 2.61 mmol/L 0.50-2.20 H (test code = 2872) Neck Cutter ID - BSRAD, CHEST, 1 VIEW, NON [id number] 01:27:00Reason for exam:- >Mechanical VentilationShould this be performed at the bedside?->Yes [facility] 1965 Sex: FFINAL REPORT [...] the distal stomach/proximal duodenum. Signed: Jerry Palencia [facility] Verified Date/Time: 08/24/2021 01:27:04 RAD, ABDOMEN/KUB, 1 VIEW [id number] 01:27:00Reason for exam:->s/p corpak placementShould this be performed at the bedside?->Yes [facility] : 1965 Sex: FFINAL REPORT [...] the distal stomach/proximal duodenum. Signed: Jerry Palencia [facility] Verified Date/Time: 08/24/2021 01:27:04 POCT-GLUCOSE [id number] 23:59:45 Test Item Value Reference Range Interpretation Comments POC-GLUCOSE METER 205 mg/dL 70-110 H : TESTED A T [facility] ([facility]) (test [facility] = [facility], 1538) [address]: Neck Cutter/Techni daniel ID = [id number] for MARGARITO DINH [id number] 21:22:54 Test Item Value Reference Range Interpretation Comments PARTIAL THROMBOPLASTIN TIME 119.0 seconds 22.5-36.0 H ([facility]) (test code = 760) [id number] 19:09:03 Test Item Value Reference Range Interpretation Comments PARTIAL THROMBOPLASTIN TIME 198.9 seconds 22.5-36.0 HH ([employer]) (test code = 760) POCT-GLUCOSE [id number] 16:52:22 Test Item Value Reference Range Interpretation Comments POC-GLUCOSE METER 225 mg/dL 70-110 H : TESTED A T [facility] 6720 (CARLY) (test code = [place], 1538) [address]: Neck Cutter/Techni daniel ID = [id number] for BERNADINE RESTREPO [id number] 14:50:11 Test Item Value Reference Range Interpretation Comments PROCALCITONIN (CARLY) (test code 5.78 ng/mL <0.05 H = 3036) SEPSIS RISK (ng/mL)Low: 0.05-0.50Intermediate: 0.51-2.00High: >=2.01Venous doppler arms [id number] 12:23:42Ejection FractionSLEH ECHO HEARTLAB MKCKESSON [facility] CenterVenous doppler arms bilateral 2021-08-23 12:23:42Ejection FractionSLEH ECHO HEARTLAB MKCKESSON [facility] CenterVenous doppler arms [id number] 12:23:42Ejection FractionSLEH ECHO HEARTLAB MKCKESSON [facility] CenterVenous doppler arms [id number] 12:23:42Ejection FractionSLEH ECHO HEARTLAB MKCKESSON [facility] CenterAPTT2022-05-31 12:08:56 Test Item Value Reference Range Interpretation Comments PARTIAL THROMBOPLASTIN TIME 29.7 seconds 22.5-36.0 (CARLY) (test code = 760) POCT-GLUCOSE [id number] 12:03:43 Test Item Value Reference Range Interpretation Comments POC-GLUCOSE METER 184 mg/dL 70-110 H : TESTED A T [facility] 6720 (CARLY) (test code = ANIL Brown [place], 1538) [address]: Neck Cutter/Techni daniel ID = [id number] for BERNADINE RESTREPO RAD, CHEST, 1 VIEW, NON [id number] 11:17:00Reason for exam:- >repositioning ettShould this be performed at the bedside?->Yes [facility] : 1965 Sex: FFINAL REPORT [...] MDReport Verified Date/Time: 08/23/2021 11:17:41 Reading Location: [facility] Radiology Reading Room , CHEST, 1 VIEW, NON [id number] 09:20:00Reason for exam:->Mechanical VentilationShould this be performed at the bedside?->Yes [facility] : 1965 Sex: FFINAL REPORT Chest AP [...] Right lung clear. Normal vascularity. Signed: Junito Mayberryeport Verified Date/Time: 08/23/2021 09:20:01 Reading Location: [facility] Radiology Reading Room (CELLAVISION MANUAL DIFF)2021-08-23 06:42:11 [...] CONCENTRATION Adequate (CELLAVISION)(BEAKER) (test code = 3438) Neck Cutter ID - Marin comments: Slide comments:CBC W/PLT COUNT & AUTO [id number] 06:42:10 Test Item Value Reference Range Interpretation [...] 0-0 (BEAKER) (test code = 413) POCT-GLUCOSE [id number] 05:25:06 Test Item Value Reference Range Interpretation Comments POC-GLUCOSE METER 233 mg/dL 70-110 H : TESTED A T [facility] (BEAKER) (test code = [place], 1538) [address]: Neck Cutter/Techni daniel ID = [id number] for Jaquelin Burns BASIC METABOLIC [id number] 04:30:11 Test Item Value Reference Range Interpretation [...] S NOT APPLICABLE FOR DIALYSIS PATIEN TS. Neck Cutter ID - [id number] 04:18:30 Test Item Value Reference Range Interpretation Comments MAGNESIUM (BEAKER) (test code = 1.8 mg/dL 1.6-2.6 627) Neck Cutter ID - [id number] 04:18:30 Test Item Value Reference Range Interpretation Comments PHOSPHORUS (BEAKER) (test code = 1.7 mg/dL 2.3-4.7 L 604) Neck Cutter ID - DBBLOOD GAS, [id number] 04:06:03 Test Item Value Reference Range Interpretation [...] (BEAKER) (test code = 1819) 30.0 POCT-GLUCOSE [id number] 00:35:37 Test Item Value Reference Range Interpretation Comments POC-GLUCOSE METER 247 mg/dL 70-110 H : [facility] ([facility]ER[facility] (test code = [facility], 1538) [address]: Neck Cutter/Techni daniel ID = [id number] for Jaquelin Burns [id number] 17:21:29 Test Item Value Reference Range Interpretation Comments ALBUMIN (BEAKER) (test code = 1145) 2.2 g/dL 3.5-5.0 L Neck Cutter ID - CALVIN WPOCT-GLUCOSE [id number] 17:10:59 Test Item Value Reference Range Interpretation Comments POC-GLUCOSE METER 200 mg/dL 70-110 H : [facility] ([facility]ER) (test code = [facility], 1538) [address]60: Neck Cutter/Techni daniel ID = [id number] for MICHAEL GARCIA RAD, CHEST, 1 VIEW, NON [id number] 07:38:00Reason for exam:->Mechanical VentilationShould this be performed at the bedside?->Yes [facility] : 1965 Sex: FFINAL REPORT [...] 08/22/2021 at 7:37 PM. Signed: Sergio Ramirez MDReport Verified Date/Time: 08/22/2021 07:38:56 Reading Location: [facility] C013Y CT Body Reading Room (CELLAVISION [...] CONCENTRATION Adequate (CELLAVISION)(BEAKER) (test code = 3438) Neck Cutter ID - Katherine OverholtUser comments: Slide comments:CBC W/PLT COUNT & AUTO [id number] 07:17:14 Test Item Value Reference Range Interpretation [...] 0-0 (BEAKER) (test code = 413) POCT-GLUCOSE [id number] 05:49:24 Test Item Value Reference Range Interpretation Comments POC-GLUCOSE METER 171 mg/dL 70-110 H : TESTED A T [facility] 6720 (BEAKER) (test code = [place], 1538) [address]: Neck Cutter/Techni daniel ID = [id number] for Zoe Lofton BASIC METABOLIC [id number] 05:17:50 Test Item Value Reference Range Interpretation [...] S NOT APPLICABLE FOR DIALYSIS PATIEN TS. Neck Cutter ID - [id number] 05:00:51 Test Item Value Reference Range Interpretation Comments MAGNESIUM (BEAKER) 1.9 mg/dL 1.6-2.6 Specimen slightly (test code = 627) hemolyzed Neck Cutter ID - DBOperator ID - [id number] 05:00:51 Test Item Value Reference Range Interpretation Comments PHOSPHORUS (BEAKER) 3.3 mg/dL 2.3-4.7 Specimen slightly (test code = 604) hemolyzed Neck Cutter ID - DBBLOOD GAS, [id number] 04:29:31 Test Item Value Reference Range Interpretation [...] (BEAKER) (test code = 1819) 30.0 POCT-GLUCOSE [id number] 23:59:55 Test Item Value Reference Range Interpretation Comments POC-GLUCOSE METER 187 mg/dL 70-110 H : TESTED A T [facility] (BEAKER) (test code = [place], 1538) [address]: Neck Cutter/Techni daniel ID = [id number] for Zoe Lofton Protein, [id number] 17:36:26 Test Item Value Reference Range Interpretation Comments Protein, CSF (test code = 13 mg/dL 15-45 L 2880-3) CECELIA (test code = CECELIA) Neck Cutter ID - [id number] Lab Interpretation (test Abnormal code = 03845-8) [facility] [id number] 17:36:26 Test Item Value Reference Range Interpretation Comments Protein, CSF (test code = 13 mg/dL 15-45 L 2880-3) CECELIA (test code = CECELIA) Neck Cutter ID - [id number] Lab Interpretation (test Abnormal code = 85843-3) [facility] CenterProtein, [id number] 17:36:26 Test Item Value Reference Range Interpretation Comments Protein, CSF (test code = 13 mg/dL 15-45 L 2880-3) CECELIA (test code = CECELIA) Neck Cutter ID - [id number] Lab Interpretation (test Abnormal code = 98221-5) [facility] [id number] 17:36:26 Test Item Value Reference Range Interpretation Comments Protein, CSF (test code = 13 mg/dL 15-45 L 2880-3) CECELIA (test code = CECELIA) Neck Cutter ID - [id number] Lab Interpretation (test Abnormal code = 34529-3) [facility], [id number] 17:36:26 Test Item Value Reference Range Interpretation Comments PROTEIN CSF (BEAKER) (test code = 13 mg/dL 15-45 L 378) Neck Cutter ID - [id number] METABOLIC [id number] 16:48:28 Test Item Value Reference Range Interpretation [...] S NOT APPLICABLE FOR DIALYSIS PATIEN TS. Neck Cutter ID Chris SIMPSON [id number] 16:41:27 Test Item Value Reference Range Interpretation Comments PHOSPHORUS (BEAKER) 3.7 mg/dL 2.3-4.7 Specimen slightly (test code = 604) hemolyzed Neck Cutter ID Chris SIMPSON WMENINGITIS/ENCEPHALITIS [id number] 16:26:56 Test Item Value Reference Range Interpretation Comments E COLI K1 (test code = Not detected Not detected 34058-3) HAEMOPHILUS INFLUENZAE Not detected Not detected (test code = 82394-5) LISTERIA MONOCYTOGENES Not detected Not detected (test code = 03290-1) NEISSERIA MENINGITIDIS Not detected Not detected (test code = 72401-7) STREPTOCOCCUS Not detected Not detected AGALACTIAE (test code = 31725-1) STREPTOCOCCUS Not detected Not detected PNEUMONIAE (test code = 15299-3) Cytomegalovirus (CMV) Not detected Not detected (test code = 80097-1) ENTEROVIRUS (test code Not detected Not detected = 70108-5) Human herpesvirus 6 Not detected Not detected (HHV-6) (test code = 63370-9) Herpes simplex virus Not detected Not detected 1(HSV-1) (test code = 03125-2) HERPES SIMPLEX VIRUS Not detected Not detected 2(HSV-2) (test code = 40105-2) Human parechovirus Not detected Not detected (test code = 97708-7) Varicella-zoster virus Not detected Not detected (VZV) (test code = 43892-2) Cryptococcus Not detected Not detected neoformans/gattii (test code = 63013-0) CECELIA (test code = CECELIA) The performance [...] required. This sample was tested at the [facility] using the [employer] Meningitis Encephalitis Panel. It is FDA cleared and has been verified and approved by the [facility] for clinical use. This laboratory is CLIA-certified and [employer] [place] [employer] (CAP)-accredited to perform high complexity testing. Lab Interpretation Normal (test code = 72339-3) [facility]ING[facility]IS/ENCEPHALITIS [id number] 16:26:56 Test Item Value Reference Range Interpretation Comments E COLI K1 (test code = Not detected Not detected 78375-3) HAEMOPHILUS INFLUENZAE Not detected Not detected (test code = 54108-2) LISTERIA MONOCYTOGENES Not detected Not detected (test code = 61616-9) NEISSERIA MENINGITIDIS Not detected Not detected (test code = 96437-1) STREPTOCOCCUS Not detected Not detected AGALACTIAE (test code = 70272-5) STREPTOCOCCUS Not detected Not detected PNEUMONIAE (test code = 37795-1) Cytomegalovirus (CMV) Not detected Not detected (test code = 64813-1) ENTEROVIRUS (test code Not detected Not detected = 40748-5) Human herpesvirus 6 Not detected Not detected (HHV-6) (test code = 77586-5) Herpes simplex virus Not detected Not detected 1(HSV-1) (test code = 46955-4) HERPES SIMPLEX VIRUS Not detected Not detected 2(HSV-2) (test code = 44766-2) Human parechovirus Not detected Not detected (test code = 24021-3) Varicella-zoster virus Not detected Not detected (VZV) (test code = 17492-5) Cryptococcus Not detected Not detected neoformans/gattii (test code = 95736-5) CECELIA (test code = CECELIA) The performance [...] required. This sample was tested at the [facility] using the [employer] Meningitis Encephalitis Panel. It is FDA cleared and has been verified and approved by the [facility] for clinical use. This laboratory is CLIA-certified and [employer] [place] [employer] (CAP)-accredited to perform high complexity testing. Lab Interpretation Normal (test code = 00224-4) [facility] CenterMENING[facility]IS[facility]ENCEPHALITIS [id number] 16:26:56 Test Item Value Reference Range Interpretation Comments E COLI K1 (test code = Not detected Not detected 92407-7) HAEMOPHILUS INFLUENZAE Not detected Not detected (test code = 79370-0) LISTERIA MONOCYTOGENES Not detected Not detected (test code = 01555-2) NEISSERIA MENINGITIDIS Not detected Not detected (test code = 13988-8) STREPTOCOCCUS Not detected Not detected AGALACTIAE (test code = 58821-2) STREPTOCOCCUS Not detected Not detected PNEUMONIAE (test code = 52023-8) Cytomegalovirus (CMV) Not detected Not detected (test code = 97450-2) ENTEROVIRUS (test code Not detected Not detected = 39286-3) Human herpesvirus 6 Not detected Not detected (HHV-6) (test code = 40743-5) Herpes simplex virus Not detected Not detected 1(HSV-1) (test code = 89927-6) HERPES SIMPLEX VIRUS Not detected Not detected 2(HSV-2) (test code = 37178-9) Human parechovirus Not detected Not detected (test code = 70645-9) Varicella-zoster virus Not detected Not detected (VZV) (test code = 52801-1) Cryptococcus Not detected Not detected neoformans/gattii (test code = 89443-6) CECELIA (test code = CECELIA) The performance [...] required. This sample was tested at the [facility] using the [employer] Film[employer] Meningitis Encephalitis Panel. It is FDA cleared and has been verified and approved by the [facility] for clinical use. This laboratory is CLIA-certified and [employer] [place] [employer] (CAP)-accredited to perform high complexity testing. Lab Interpretation Normal (test code = 73565-1) [facility]MENING[facility]IS/ENCEPHALITIS [id number] 16:26:56 Test Item Value Reference Range Interpretation Comments E COLI K1 (test code = Not detected Not detected 60364-6) HAEMOPHILUS INFLUENZAE Not detected Not detected (test code = 83114-2) LISTERIA MONOCYTOGENES Not detected Not detected (test code = 01417-0) NEISSERIA MENINGITIDIS Not detected Not detected (test code = 10630-9) STREPTOCOCCUS Not detected Not detected AGALACTIAE (test code = 83288-8) STREPTOCOCCUS Not detected Not detected PNEUMONIAE (test code = 06594-7) Cytomegalovirus (CMV) Not detected Not detected (test code = 55076-4) ENTEROVIRUS (test code Not detected Not detected = 27727-8) Human herpesvirus 6 Not detected Not detected (HHV-6) (test code = 57304-3) Herpes simplex virus Not detected Not detected 1(HSV-1) (test code = 93782-9) HERPES SIMPLEX VIRUS Not detected Not detected 2(HSV-2) (test code = 30040-7) Human parechovirus Not detected Not detected (test code = 05831-1) Varicella-zoster virus Not detected Not detected (VZV) (test code = 04387-5) Cryptococcus Not detected Not detected neoformans/gattii (test code = 45221-8) CECELIA (test code = CECELIA) The performance [...] required. This sample was tested at the [facility] using the [employer] FilmArray Meningitis Encephalitis Panel. It is FDA cleared and has been verified and approved by the [facility] for clinical use. This laboratory is CLIA-certified and [employer] [place] [employer] (CAP)-accredited to perform high complexity testing. Lab Interpretation Normal (test code = 25657-0) [facility] CenterMENING[facility]IS[facility]ENCEPHALITIS [id number] 16:26:56 Test Item Value Reference Range Interpretation Comments ESCHERICHIA COLI K1 (test code = Not detected Not detected 20151225) HAEMOPHILUS INFLUENZAE (test Not detected Not detected code = 8939392) LISTERIA MONOCYTOGENES (test Not detected Not detected code = 5827673) NEISSERIA MENINGITIDIS (test Not detected Not detected code = 20151228) STREPTOCOCCUS AGALACTIAE (test Not detected Not detected code = 6486523) STREPTOCOCCUS PNEUMONIAE (test Not detected Not detected code = 9732989) CYTOMEGALOVIRUS (CMV) (test code Not detected Not detected = 8345958) ENTEROVIRUS (test code = Not detected Not detected 5959142) HUMAN HERPESVIRUS 6 (HHV-6) Not detected Not detected (test code = 0842827) HERPES SIMPLEX VIRUS 1(HSV-1) Not detected Not detected (test code = 6465893) HERPES SIMPLEX VIRUS 2(HSV-2) Not detected Not detected (test code = 6918961) HUMAN PARECHOVIRUS (test code = Not detected Not detected 5826976) VARICELLA-ZOSTER VIRUS (VZV) Not detected Not detected (test code = 4445936) CRYPTOCOCCUS NEOFORMANS/GATTII Not detected Not detected (test code = 0101118) The performance of this test has not [...] required. This sample was tested at the [facility] using the [employer] FilmArray MeningitisEncephalitis Panel. It is FDA cleared and has been verified and approved by the [facility] for clinical use. This laboratory is CLIA-certified and [employer] [place] [employer] (CAP)-accredited to perform high complexity testing.CSF cell count with gkkkuocslvpt6464-92-38 16:03:36 Test Item Value Reference Range Interpretation Comments Appearance (test Clear Clear code = 08454-2) Color (test code = Colorless Colorless 55276-6) RBCs (test code = 0 See_Comment [Automate d message] 792-2) The system [employer] generated this result transmit sally reference range : 0 - 5 /cu mm. The reference range was not used to interpret this result as normal/abnormal . WBCs (test code = 0 See_Comment [Automate d message] 806-0) The system [employer] generated this result transmit sally reference range : <=5 /cu mm. The reference range was not used to interpret this result as normal/abnormal . RBCs Fresh? (test Not Applicable code = 55307-9) # of Cells Diff'd 0 (test code = 69530-4) Tube Number (test 1 code = 2677) [facility] cell count with pmxkusifxdqk4944-67-36 16:03:36 Test Item Value Reference Range Interpretation Comments Appearance (test Clear Clear code = 44480-9) Color (test code = Colorless Colorless 34365-6) RBCs (test code = 0 See_Comment [Automate d message] 792-2) The system [employer] generated this result transmit sally reference range : 0 - 5 /cu mm. The reference range was not used to interpret this result as normal/abnormal . WBCs (test code = 0 See_Comment [Automate d message] 806-0) The system [employer] generated this result transmit sally reference range : <=5 /cu mm. The reference range was not used to interpret this result as normal/abnormal . RBCs Fresh? (test Not Applicable code = 39282-0) # of Cells Diff'd 0 (test code = 72996-0) Tube Number (test 1 code = 2677) [facility] cell count with ehwwykerrvyd2784-22-99 16:03:36 Test Item Value Reference Range Interpretation Comments Appearance (test Clear Clear code = 59254-9) Color (test code = Colorless Colorless 64733-6) RBCs (test code = 0 See_Comment [Automate d message] 792-2) The system [employer] generated this result transmit sally reference range : 0 - 5 /cu mm. The reference range was not used to interpret this result as normal/abnormal . WBCs (test code = 0 See_Comment [Automate d message] 806-0) The system [employer] generated this result transmit sally reference range : <=5 /cu mm. The reference range was not used to interpret this result as normal/abnormal . RBCs Fresh? (test Not Applicable code = 57642-4) # of Cells Diff'd 0 (test code = 63991-5) Tube Number (test 1 code = 2677) [facility] with bvdqbqwrxeop0308-66-14 16:03:36 Test Item Value Reference Range Interpretation Comments Appearance (test Clear Clear code = 28490-6) Color (test code = Colorless Colorless 83204-2) RBCs (test code = 0 See_Comment [Automate d message] 792-2) The system [employer] generated this result transmit sally reference range : 0 - 5 /cu mm. The reference range was not used to interpret this result as normal/abnormal . WBCs (test code = 0 See_Comment [Automate d message] 806-0) The system [employer] generated this result transmit sally reference range : <=5 /cu mm. The reference range was not used to interpret this result as normal/abnormal . RBCs Fresh? (test Not Applicable code = 69873-9) # of Cells Diff'd 0 (test code = 78603-7) Tube Number (test 1 code = 2677) [facility] W/[id number] 16:03:36 Test Item Value Reference Range Interpretation [...] 1 (BEAKER) (test code = 2678) Glucose, [id number] 14:55:50 Test Item Value Reference Range Interpretation Comments Glucose, CSF (test code = 68 mg/dL 40-70 2342-4) CECELIA (test code = CECELIA) Neck Cutter ID - CALVIN Giraldo Lab Interpretation (test Normal code = 14595-3) [facility], [id number] 14:55:50 Test Item Value Reference Range Interpretation Comments Glucose, CSF (test code = 68 mg/dL 40-70 2342-4) CECELIA (test code = CECELIA) Neck Cutter JAZLYN SIMPSON W Lab Interpretation (test Normal code = 55930-9) [facility]Gl[facility], [id number] 14:55:50 Test Item Value Reference Range Interpretation Comments Glucose, CSF (test code = 68 mg/dL 40-70 2342-4) CECELIA (test code = CECELIA) Neck Cutter JAZLYN SIMPSON W Lab Interpretation (test Normal code = 58098-3) [facility], [id number] 14:55:50 Test Item Value Reference Range Interpretation Comments Glucose, CSF (test code = 68 mg/dL 40-70 2342-4) CECELIA (test code = CECELIA) Neck Cutter JAZLYN SIMPSON W Lab Interpretation (test Normal code = 97926-7) [facility] CenterGLU[facility]SE, [id number] 14:55:50 Test Item Value Reference Range Interpretation Comments GLUCOSE CSF (BEAKER) (test code = 68 mg/dL 40-70 406) Neck Cutter JAZLYN EUCEDAHENYTOIN LEVEL, [id number] 13:12:52 Test Item Value Reference Range Interpretation Comments PHENYTOIN (DILANTIN) (BEAKER) 14.6 ug/mL 10.0-20.0 (test code = 605) Neck Cutter JAZLYN SIMPSON [id number] 13:10:45 Test Item Value Reference Range Interpretation Comments PHOSPHORUS (BEAKER) (test code = 1.3 mg/dL 2.3-4.7 LL 604) Neck Cutter JAZLYN SIMPSON WBASIC METABOLIC [id number] 13:10:24 Test Item Value Reference Range Interpretation Comments SODIUM (BEAKER) 142 meq/L 136-145 (test code = 381) POTASSIUM (BEAKER) 3.4 meq/L 3.5-5.1 L (test code = 379) CHLORIDE (BEAKER) 110 meq/L 98-107 H (test code = 382) CO2 (BEAKER) (test 25 meq/L -29 code = 355) BLOOD UREA NITROGEN 13 [...] S NOT APPLICABLE FOR DIALYSIS PATIEN TS. Neck Cutter ID - CALVIN [id number] 13:08:12 Test Item Value Reference Range Interpretation Comments MAGNESIUM (BEAKER) (test code = 1.9 mg/dL 1.6-2.6 627) Neck Cutter ID - CALVIN WHEMOGLOBIN AND [id number] 12:47:46 Test Item Value Reference Range Interpretation Comments HEMOGLOBIN (BEAKER) (test code = 7.5 GM/DL 11.2-15.7 L 410) HEMATOCRIT (BEAKER) (test code = 22.3 % 34.1-44.9 L 411) CBC W/PLT COUNT & AUTO [id number] 12:47:45 Test Item Value Reference Range Interpretation [...] = 2801) RAD, CHEST, 1 VIEW, NON [id number] 09:25:00Reason for exam:->Mechanical VentilationShould this be performed at the bedside?->Yes [facility] 1965 Sex: FFINAL REPORT [...] osseous abnormality is identified. Signed: Edwar Thayer MDReport Verified Date/Time: 08/21/2021 09:25:13 Reading Location: [address] Consult Reading Room POCT- GLUCOSE [id number] 06:30:02 Test Item Value Reference Range Interpretation Comments POC-GLUCOSE METER 89 mg/dL 70-110 : TESTED A T [facility] 67[address] (BEAKER) (test code = ANIL Brown [facility], 1538) [address]: Neck Cutter/Techni daniel ID = [id number] for MIGUEL VALENCIA BLOOD GAS, [id number] 05:51:06 Test Item Value Reference Range Interpretation [...] FIO2 (BEAKER) (test code = 1819) 30.0 [id number] 04:38:02 Test Item Value Reference Range Interpretation Comments PHOSPHORUS (BEAKER) (test code = 0.9 mg/dL 2.3-4.7 LL 604) Neck Cutter ID - CALVIN WOperator ID - CALVIN WBASIC METABOLIC [id number] 04:08:48 Test Item Value Reference Range Interpretation [...] S NOT APPLICABLE FOR DIALYSIS PATIEN TS. Neck Cutter ID - CALVIN [id number] 04:03:45 Test Item Value Reference Range Interpretation Comments MAGNESIUM (BEAKER) (test code = 1.8 mg/dL 1.6-2.6 627) Neck Cutter ID Chris SIMPSON WCBC W/PLT COUNT & AUTO [id number] 03:49:05 Test Item Value Reference Range Interpretation [...] PERCENT (BEAKER) (test code = 2801) POCT-GLUCOSE [id number] 00:31:54 Test Item Value Reference Range Interpretation Comments POC-GLUCOSE METER 96 mg/dL 70-110 : TESTED A T [facility] 6720 (BEAKER) (test code = [facility], 1538) [address]: Neck Cutter/Techni daniel ID = [id number] for YANE DEGROOT MIGUEL POCT-GLUCOSE [id number] 22:33:19 Test Item Value Reference Range Interpretation Comments POC-GLUCOSE METER 103 mg/dL 70-110 : TESTED A T [facility] 6720 (BEAKER) (test code = [facility], 1538) [address]: Neck Cutter/Techni daniel ID = [id number] for MIGUEL VILLANUEVA POCT-GLUCOSE [id number] 17:39:03 Test Item Value Reference Range Interpretation Comments POC-GLUCOSE METER 65 mg/dL 70-110 L : Notified RN/MD: TESTED (BEAKER) (test code = AT [facility] [address] 1538) [place], [address]: Neck Cutter/Techni daniel ID = [id number] for KWABENA MENDOZA PHENYTOIN LEVEL, [id number] 14:59:35 Test Item Value Reference Range Interpretation Comments PHENYTOIN (DILANTIN) (BEAKER) 20.6 ug/mL 10.0-20.0 H (test code = 605) Neck Cutter ID - AC MARK, ABDOMEN/KUB, 1 VIEW [id number] 12:59:00Reason for exam:->Corpak placement [facility] : 1965 Sex: FFINAL REPORT [...] osseous abnormality is identified. Signed: Edwar Thayer MDReport Verified Date/Time: 08/20/2021 12:59:34 Reading Location: [facility] C0[facility] Consult Reading Room POCT-GLUCOSE METER 2021-08-20 12:16:21 Test Item Value Reference Range Interpretation Comments POC-GLUCOSE METER 97 mg/dL 70-110 : TESTED A T [facility] 6720 (BEAKER) (test code = [facility], 1538) [address]: Neck Cutter/Techni daniel ID = [id number] for KWABENA MENDOZA POCT-GLUCOSE [id number] 11:16:00 Test Item Value Reference Range Interpretation Comments POC-GLUCOSE METER 56 mg/dL 70-110 L : TESTED A T [facility] 6720 (BEAKER) (test code = [facility], 1538) [address]: Neck Cutter/Techni daniel ID = [id number] for MICHAEL MENDIOLA POCT-GLUCOSE [id number] 07:13:57 Test Item Value Reference Range Interpretation Comments POC-GLUCOSE METER 103 mg/dL 70-110 : TESTED A T [facility] 6720 (BEAKER) (test code = [facility], 1538) [address]: Neck Cutter/Techni daniel ID = [id number] for MIGUEL VILLANUEVA POCT-GLUCOSE [id number] 06:22:57 Test Item Value Reference Range Interpretation Comments POC-GLUCOSE METER 52 mg/dL 70-110 L : TESTED A T [facility] 6720 (BEAKER) (test code = [facility], 1538) [address]: Neck Cutter/Techni daniel ID = [id number] for MIGUEL VALENCIA BASIC METABOLIC [id number] 05:20:43 Test Item Value Reference Range Interpretation [...] S NOT APPLICABLE FOR DIALYSIS PATIEN TS. Neck Cutter ID - BANDAR [id number] 05:13:27 Test Item Value Reference Range Interpretation Comments MAGNESIUM (BEAKER) (test code = 1.9 mg/dL 1.6-2.6 627) Neck Cutter ID - BANDAR [id number] 05:13:27 Test Item Value Reference Range Interpretation Comments PHOSPHORUS (BEAKER) (test code = 2.5 mg/dL 2.3-4.7 604) Neck Cutter ID - BANDAR MPTH, [id number] 05:10:33 Test Item Value Reference Range Interpretation Comments PARATHYROID HORMONE INTACT 172.7 pg/mL 8.5-72.5 H (BEAKER) (test code = 577) Neck Cutter ID - BANDAR MBLOOD GAS, [id number] 04:57:07 Test Item Value Reference Range Interpretation [...] 1819) 30.0 CBC W/PLT COUNT & AUTO [id number] 04:52:45 Test Item Value Reference Range Interpretation [...] PERCENT (BEAKER) (test code = 2801) POCT-GLUCOSE [id number] 19:16:36 Test Item Value Reference Range Interpretation Comments POC-GLUCOSE METER 87 mg/dL 70-110 : TESTED A T [facility] 6720 (CARLY) (test code = [place], 1538) [address]: Neck Cutter/Techni daniel ID = [id number] for Mary Stallworth POCT-GLUCOSE [id number] 12:02:52 Test Item Value Reference Range Interpretation Comments POC-GLUCOSE METER 123 mg/dL 70-110 H : TESTED A T [facility] 1317 (CARLY) (test code [address], = 1538) [facility] [address]: Neck Cutter/Techni daniel ID = [id number] for Ali, Rosa RAD, ABDOMEN/KUB 1 VIEW [id number] 11:20:00Reason for exam:->Enteric tube placement verification [facility] 1965 Sex: FFINAL REPORT [...] MDReport Verified Date/Time: 08/19/2021 11:20:09 Reading Location: [facility] Radiology Reading Room RAD, CHEST, 1 VIEW, NON [id number] 11:20:00Reason for exam:->[facility] : 1965 Sex: FFINAL REPORT [...] MDReport Verified Date/Time: 08/19/2021 11:20:09 Reading Location: [facility] Radiology Reading Room SARS-CoV2/RT-PCR (Asymptomatic ONLY)2021-08-19 10:42:27 Test Item Value Reference Interpretation Comments Range SARS-COV2/RT-PCR Negative Negative The SARS-Co V-2 (test code = target nucleic 64399-5) acids are not detected in thi s [...] revoked sooner. Fact Sheet for Healthcare Providers: https://www.[employer]/Documents/Xp ert%20Xpress%20SAR S%20CoV-2/Fact%20S heets/302-2122%20S ARS-COV-2%20HEALTH CARE%20PROVIDERS%2 0FACT%20SHEET.pdf Fact Sheet for Healthcare Patients: https://www.[employer]/Documents/Xp ert%20Xpress%20SAR S%20CoV-2/Fact%20S heets/3023801%20S ARS-COV-2%20PATIEN T%20FACT%20SHEET.p df Lab Interpretation Normal (test code = 49534-8) [facility]2021-08-19 10:42:27 Test Item Value Reference Interpretation Comments Range SARS-COV2/RT-PCR Negative Negative The SARS-Co V-2 (test code = target nucleic 49758-9) acids are not detected in thi s [...] revoked sooner. Fact Sheet for Healthcare Providers: https://www.[employer]/Documents/Xp ert%20Xpress%20SAR S%20CoV-2/Fact%20S heets/3023802%20S ARS-COV-2%20HEALTH CARE%20PROVIDERS%2 0FACT%20SHEET.pdf Fact Sheet for Healthcare Patients: https://www.[employer]/Documents/Xp ert%20Xpress%20SAR S%20CoV-2/Fact%20S heets/302-3801%20S ARS-COV-2%20PATIEN T%20FACT%20SHEET.p df Lab Interpretation Normal (test code = 37617-3) [facility] REF LAB[facility])2021-08-19 10:42:27 Test Item Value Reference Range Interpretation Comments SARS-COV2/RT-PCR Negative Negative The SARS-Co V-2 target (test code = nucleic acids a re not 6900856) detected in thi s specimen. Negative result [...] revoked sooner. Fact Sheet for Healthcare Providers: https://www.[employer] m/Documents/Xpert%20Xpress%20SARS%20CoV-2/Fact%20Sheets/3023802%04AXEK-JFG-5%20 HEALTHCARE%20PROVIDERS%20FACT%20SHEET.pdf Fact Sheet for Healthcare Patients: https://www.[employer]/Documents/Xpert%20Xp ress%20SARS%20CoV-2/Fact%20Sheets/3023801%27CQJX-SGD-7%20PATIENT%20FACT%20SHEET .pdfBLOOD GAS, [id number] 09:40:43 Test Item Value Reference Range Interpretation [...] (BEAKER) (test code = 1819) 100.0 POCT-GLUCOSE [id number] 08:21:17 Test Item Value Reference Range Interpretation Comments POC-GLUCOSE METER 125 mg/dL 70-110 H : TESTED A T [facility] 1317 (BEAKER) (test code [address], = 1538) [place] [address]: Neck Cutter/Techni daniel ID = [id number] for Ali, Rosa POCT-GLUCOSE [id number] 06:20:10 Test Item Value Reference Range Interpretation Comments POC-GLUCOSE METER 102 mg/dL 70-110 : TESTED A T [facility] [address] (BEAKER) (test code [address], = 1538) [place] [address]: Neck Cutter/Techni daniel ID = [id number] for Garc ia, Mi BASIC METABOLIC [id number] 04:52:02 Test Item Value Reference Range Interpretation [...] S NOT APPLICABLE FOR DIALYSIS PATIEN TS. Neck Cutter ID - [id number] ID - oelv51Otiqaeee ID - dvei23Glzpesya ID - mjzx89Kxfxkkut ID - ggmw94Sfseenjy ID - jgqi82Bjycrwpm ID - qhff43Tqkqtwfe ID - ffoy97Mgcvbdbl ID - ghqo74Mfuwydvh ID - cfoq95Zhpwcmam ID - nimh75Pvgpuign ID - gtcy35Wcpkijkf ID - ndit69QKB W/PLT COUNT & AUTO [id number] 04:27:22 Test Item Value Reference Range Interpretation [...] PERCENT (BEAKER) (test code = 2801) POCT-GLUCOSE [id number] 21:18:21 Test Item Value Reference Range Interpretation Comments POC-GLUCOSE METER 71 mg/dL 70-110 : TESTED A T [facility] 1317 (BEAKER) (test code = [address], [address]) [facility] 77 478: Neck Cutter/Techni daniel ID = [id number] for VanC isakin, Maggie [id number] 18:25:36 Test Item Value Reference Range Interpretation Comments MAGNESIUM (BEAKER) (test code = 1.8 mg/dL 1.5-3.0 627) Neck Cutter ID - [id number], BRAIN, WITHOUT [id number] 16:05:00Unlisted Reason for Exam - Click Yes and Enter Reason Below->No [facility] DOB: 1965 Sex: FFINAL REPORT CT, BRAIN, WITHOUT [...] characterization. Signed: Ruth Benítez MDReport Verified Date/Time: 08/18/2021 16:05:59 MR, BRAIN, WITHOUT [id number] 15:48:00Unlisted Reason for Exam - Click Yes and Enter Reason Below->NoDoes the patient have an implantedelectronic device?->No [facility]KI CORONADO : 1965 Sex: FFINAL REPORT MR, BRAIN, [...] monoxide).Otherwise, no acute intracranial findings. Signed: Ruth Bení[facility]pl[facility] Verified Date/Time: 08/18/2021 15:48:54 POCT-GLUCOSE [id number] 10:47:44 Test Item Value Reference Range Interpretation Comments POC-GLUCOSE METER 87 mg/dL 70-110 : TESTED A T SLS 1317 (BEAKER) (test code = [address]) [facility] 77 478: Neck Cutter/Techni daniel ID = [id number] for Yanni Brooks COMPREHENSIVE METABOLIC [id number] 10:20:59 Test Item Value Reference Range Interpretation [...] S NOT APPLICABLE FOR DIALYSIS PATIEN TS. Neck Cutter ID - DSENSONOperator ID - DSENSONOperator ID - DSENSONOperator ID - DSENSONOperator ID - DSENSONOperator ID - DSENSONOperator ID - DSENSONOperator ID - DSENSONOperator ID - DSENSONOperator ID - DSENSONOperator ID - DSENSONOperator ID - DSENSONOperator ID - DSENSONOperator ID - DSENSONOperatorID - DSENSONOperator ID - DSENSONOperator ID - DSENSONOperator ID - DSENSONOperator ID - DSENSONCBC W/PLT COUNT & AUTO [id number] 10:04:14 Test Item Value Reference Range Interpretation [...] PERCENT (BEAKER) (test code = 2801) POCT-GLUCOSE [id number] 09:00:00 Test Item Value Reference Range Interpretation Comments POC-GLUCOSE METER 101 mg/dL 70-110 : TESTED A T [facility] [address]17 (BEAKER) (test code [address], = 1538) [facility] 77 478: Neck Cutter/Techni daniel ID = [id number] for Noemi ety, Tisha POCT-GLUCOSE [id number] 17:42:08 Test Item Value Reference Range Interpretation Comments POC-GLUCOSE METER 81 mg/dL 70-110 : TESTED A T [facility] [address] (BEAKER) (test code = [address], [address]) [place] [address] 478: Neck Cutter/Techni daniel ID = [id number] for Yanni Brooks POCT-GLUCOSE [id number] 12:45:03 Test Item Value Reference Range Interpretation Comments POC-GLUCOSE METER 79 mg/dL 70-110 : TESTED A T [facility] [address] (BEAKER) (test code = [address], [address]) [place] [address] 478: Neck Cutter/Techni daniel ID = [id number] for Yanni Brooks POCT-GLUCOSE [id number] 10:51:04 Test Item Value Reference Range Interpretation Comments POC-GLUCOSE METER 63 mg/dL 70-110 L : TESTED A T [facility] [address] (BEAKER) (test code = [address], 1538) [place] [address] 478: Neck Cutter/Techni daniel ID = [id number] for David c, Sagimol COMPREHENSIVE METABOLIC [id number] 06:32:44 Test Item Value Reference Range Interpretation [...] S NOT APPLICABLE FOR DIALYSIS PATIEN TS. Neck Cutter ID - teve71Cuqmwyil ID - qrnw58Oxfvkqzm ID - yrdr94Lbczgtry ID - bwfp64Kfueiouh ID - sllw45Pdzurxju ID - zvus30Qrjpnfzk ID - ntdr39Opnvsbus ID - xtvn54Tkiqiuby ID - sbds11Detqznfi ID - lcxd29Vptfhsir ID - pjqk46Xmgzfoyk ID - povz80Nsqvrhmh ID - honk16Orniadrb ID - pclm51Fmgbunyy ID - qrqw63Vssoznos ID - svle71ERZCGFPEY5933-04-48 06:29:37 Test Item Value Reference Range Interpretation Comments MAGNESIUM (BEAKER) 1.8 mg/dL 1.5-3.0 Specimen slightly (test code = 627) hemolyzed Neck Cutter ID - cdax77Tupvakrs ID - zamo84Frvjkoyu ID - skve23Gigtbrrj ID - znmp04 CBC W/PLT COUNT & AUTO [id number] 05:55:19 Test Item Value Reference Range Interpretation [...] (test code = 2801) ANG, TUNNELED CATHETER [id number] 10:38:00Reason for Central Line/PICC?->Need for hemodialysis accessReason for exam:->esrd [facility] : 1965 Sex: FFINAL REPORT [...] dose (Ka,r): 3 mGy Signed: Junito Mayberry Verified Date/Time: 08/16/2021 10:38:20 Reading Location: [facility] Radiology Reading Room REHENSIVE METABOLIC [id number] 05:55:05 Test Item Value Reference Range Interpretation [...] S NOT APPLICABLE FOR DIALYSIS PATIEN TS. Neck Cutter ID - LITOOperator ID - LITOOperator ID - LITOOperator ID - LITOOperator ID - LITOOperator ID - LITOOperator ID - LITOOperator ID - LITOOperator ID - LITOOperator ID - LITOOperator ID - LITOOperator ID - LITOOperator ID - LITOOperator ID - LITOOperator ID - LITOOperator ID - [id number] 05:48:01 Test Item Value Reference Range Interpretation Comments MAGNESIUM (BEAKER) (test code = 1.6 mg/dL 1.5-3.0 627) Neck Cutter ID - LITOOperator ID - LITOOperator ID - LITOOperator ID - LITOCBC W/PLT COUNT & AUTO [id number] 05:28:26 Test Item Value Reference Range Interpretation [...] = 2801) GI Pathogen Profile by PCR-ID [id number] 18:38:44 Test Item Value Reference Range Interpretation Comments CAMPYLOBACTER PCR (test Not detected Not detected code = 25316-3) PLESIOMONAS SHIGELLOIDES Not detected Not detected (PCR) (test code = 95081-0) SALMONELLA (PCR) (test Not detected Not detected code = 86147-7) YERSINIA ENTEROCOLITICA Not detected Not detected (PCR) (test code = 92888-5) VIBRIO CHOLERAE (PCR) Not detected Not detected (test code = 51217-7) ENTEROAGGREGATIVE E. Not detected Not detected COLI (EAEC) BY PCR (test code = 53318-9) ENTEROPATHOGENIC E. COLI Not detected Not detected (EPEC) BY PCR (test code = 22067-0) ENTEROTOXIGENIC E. COLI Not detected Not detected (ETEC) LT/ST BY PCR (test code = 12081-2) SHIGA-LIKE Not detected Not detected TOXIN-PRODUCING E. COLI (STEC) STX1/STX2 (test code = 95670-2) E. COLI O157 (PCR) (test code = 08185-1) SHIGELLA/ENTEROINVASIVE Not detected Not detected E. COLI (EIEC) BY PCR (test code = 65802-3) CRYPTOSPORIDIUM (PCR) Not detected Not detected (test code = 89991-2) CYCLOSPORA CAYETANENSIS Not detected Not detected (PCR) (test code = 95989-4) ENTAMOEBA HISTOLYTICA Not detected Not detected (PCR) (test code = 73350-6) GIARDIA LAMBLIA (PCR) Not detected Not detected (test code = 35075-0) ADENOVIRUS F 40/41 (PCR) Not detected Not detected (test code = 58949-1) ASTROVIRUS (PCR) (test Not detected Not detected code = 66181-9) NOROVIRUS GI/GII (PCR) Not detected Not detected (test code = 58045-5) ROTAVIRUS A (PCR) (test Not detected Not detected code = 14956-9) SAPOVIRUS (I, II, IV, V) Not detected Not detected BY PCR (test code = 42856-5) VIBRIO Not detected Not detected (PARAHAEMOLYTICUS, VULNIFICUS) (test code = 24583-3) CECELIA (test code = CECELIA) Other viruses, parasites and bacteria not targeted by this PCR panel cannot be excluded; therefore clinical correlation and follow up of serology, culture results, and other molecular studies is required. The results are not intended to be used as the sole means for clinical diagnosis or patient management decisions. This sample was tested at the [facility] using the [employer] Gastrointestinal Panel. It is FDA cleared and has been verified and approved by the [facility] for clinical use. This laboratory is CLIA-certified and [employer] [employer] (CAP)-accredited to perform high complexity testing. [facility] by PCR-ID [id number] 18:38:44 Test Item Value Reference Range Interpretation Comments CAMPYLOBACTER (PCR) Not detected Not detected (test code = 55846-0) PLESIOMONAS SHIGELLOIDES Not detected Not detected (PCR) (test code = 63006-9) SALMONELLA (PCR) (test Not detected Not detected code = 07308-6) YERSINIA ENTEROCOLITICA Not detected Not detected (PCR) (test code = 30389-4) VIBRIO CHOLERAE (PCR) Not detected Not detected (test code = 02279-6) ENTEROAGGREGATIVE E. Not detected Not detected COLI (EAEC) BY PCR (test code = 95205-0) ENTEROPATHOGENIC E. COLI Not detected Not detected (EPEC) BY PCR (test code = 60523-4) ENTEROTOXIGENIC E. COLI Not detected Not detected (ETEC) LT/ST BY PCR (test code = 88025-4) SHIGA-LIKE Not detected Not detected TOXIN-PRODUCING E. COLI (STEC) STX1/STX2 (test code = 63612-8) E. COLI O157 (PCR) (test code = 69487-5) SHIGELLA/ENTEROINVASIVE Not detected Not detected E. COLI (EIEC) BY PCR (test code = 28396-8) CRYPTOSPORIDIUM (PCR) Not detected Not detected (test code = 33594-0) CYCLOSPORA CAYETANENSIS Not detected Not detected (PCR) (test code = 45531-4) ENTAMOEBA HISTOLYTICA Not detected Not detected (PCR) (test code = 32495-9) GIARDIA LAMBLIA (PCR) Not detected Not detected (test code = 03169-7) ADENOVIRUS F 40/41 (PCR) Not detected Not detected (test code = 09116-4) ASTROVIRUS (PCR) (test Not detected Not detected code = 96910-9) NOROVIRUS GI/GII (PCR) Not detected Not detected (test code = 55362-4) ROTAVIRUS A (PCR) (test Not detected Not detected code = 12406-8) SAPOVIRUS (I, II, IV, V) Not detected Not detected BY PCR (test code = 79001-1) VIBRIO Not detected Not detected (PARAHAEMOLYTICUS, VULNIFICUS) (test code = 59847-9) CECELIA (test code = CECELIA) Other viruses, parasites and bacteria not targeted by this PCR panel cannot be excluded; therefore clinical correlation and follow up of serology, culture results, and other molecular studies is required. The results are not intended to be used as the sole means for clinical diagnosis or patient management decisions. This sample was tested at the [facility] using the [employer] Gastrointestinal Panel. It is FDA cleared and has been verified and approved by the [facility] for clinical use. This laboratory is CLIA-certified and [employer] [employer] (CAP)-accredited to perform high complexity testing. [facility] by PCR-ID [id number] 18:38:44 Test Item Value Reference Range Interpretation Comments CAMPYLOBACTER (PCR) Not detected Not detected (test code = 57710-2) PLESIOMONAS SHIGELLOIDES Not detected Not detected (PCR) (test code = 88368-0) SALMONELLA (PCR) (test Not detected Not detected code = 68059-9) YERSINIA ENTEROCOLITICA Not detected Not detected (PCR) (test code = 12760-8) VIBRIO CHOLERAE (PCR) Not detected Not detected (test code = 07862-5) ENTEROAGGREGATIVE E. Not detected Not detected COLI (EAEC) BY PCR (test code = 63555-1) ENTEROPATHOGENIC E. COLI Not detected Not detected (EPEC) BY PCR (test code = 91636-7) ENTEROTOXIGENIC E. COLI Not detected Not detected (ETEC) LT/ST BY PCR (test code = 42420-8) SHIGA-LIKE Not detected Not detected TOXIN-PRODUCING E. COLI (STEC) STX1/STX2 (test code = 81290-8) E. COLI O157 (PCR) (test code = 51328-4) SHIGELLA/ENTEROINVASIVE Not detected Not detected E. COLI (EIEC) BY PCR (test code = 92242-3) CRYPTOSPORIDIUM (PCR) Not detected Not detected (test code = 64386-5) CYCLOSPORA CAYETANENSIS Not detected Not detected (PCR) (test code = 13519-7) ENTAMOEBA HISTOLYTICA Not detected Not detected (PCR) (test code = 20324-4) GIARDIA LAMBLIA (PCR) Not detected Not detected (test code = 14142-0) ADENOVIRUS F 40/41 (PCR) Not detected Not detected (test code = 90260-5) ASTROVIRUS (PCR) (test Not detected Not detected code = 84320-1) NOROVIRUS GI/GII (PCR) Not detected Not detected (test code = 44391-8) ROTAVIRUS A (PCR) (test Not detected Not detected code = 26277-7) SAPOVIRUS (I, II, IV, V) Not detected Not detected BY PCR (test code = 17129-8) VIBRIO Not detected Not detected (PARAHAEMOLYTICUS, VULNIFICUS) (test code = 41756-5) CECELIA (test code = CECELIA) Other viruses, parasites and bacteria not targeted by this PCR panel cannot be excluded; therefore clinical correlation and follow up of serology, culture results, and other molecular studies is required. The results are not intended to be used as the sole means for clinical diagnosis or patient management decisions. This sample was tested at the [facility] using the [employer] Gastrointestinal Panel. It is FDA cleared and has been verified and approved by the [facility] for clinical use. This laboratory is CLIA-certified and [employer] [place] [employer] (CAP)-accredited to perform high complexity testing. [facility] by PCR-ID [id number] 18:38:44 Test Item Value Reference Range Interpretation Comments CAMPYLOBACTER PCR (test Not detected Not detected code = 89655-5) PLESIOMONAS SHIGELLOIDES Not detected Not detected (PCR) (test code = 71617-8) SALMONELLA (PCR) (test Not detected Not detected code = 77124-2) YERSINIA ENTEROCOLITICA Not detected Not detected (PCR) (test code = 41226-7) VIBRIO CHOLERAE (PCR) Not detected Not detected (test code = 37158-7) ENTEROAGGREGATIVE E. Not detected Not detected COLI (EAEC) BY PCR (test code = 77033-1) ENTEROPATHOGENIC E. COLI Not detected Not detected (EPEC) BY PCR (test code = 77685-2) ENTEROTOXIGENIC E. COLI Not detected Not detected (ETEC) LT/ST BY PCR (test code = 11960-9) SHIGA-LIKE Not detected Not detected TOXIN-PRODUCING E. COLI (STEC) STX1/STX2 (test code = 93696-1) E. COLI O157 (PCR) (test code = 29281-9) SHIGELLA/ENTEROINVASIVE Not detected Not detected E. COLI (EIEC) BY PCR (test code = 22527-7) CRYPTOSPORIDIUM (PCR) Not detected Not detected (test code = 13819-5) CYCLOSPORA CAYETANENSIS Not detected Not detected (PCR) (test code = 35164-3) ENTAMOEBA HISTOLYTICA Not detected Not detected (PCR) (test code = 75774-1) GIARDIA LAMBLIA (PCR) Not detected Not detected (test code = 57394-3) ADENOVIRUS F 40/41 (PCR) Not detected Not detected (test code = 16179-8) ASTROVIRUS (PCR) (test Not detected Not detected code = 09640-0) NOROVIRUS GI/GII (PCR) Not detected Not detected (test code = 33835-7) ROTAVIRUS A (PCR) (test Not detected Not detected code = 08709-1) SAPOVIRUS (I, II, IV, V) Not detected Not detected BY PCR (test code = 83105-5) VIBRIO Not detected Not detected (PARAHAEMOLYTICUS, VULNIFICUS) (test code = 54706-1) CECELIA (test code = CECELIA) Other viruses, parasites and bacteria not targeted by this PCR panel cannot be excluded; therefore clinical correlation and follow up of serology, culture results, and other molecular studies is required. The results are not intended to be used as the sole means for clinical diagnosis or patient management decisions. This sample was tested at the [facility] using the [employer] Gastrointestinal Panel. It is FDA cleared and has been verified and approved by the [facility] for clinical use. This laboratory is CLIA-certified and [employer] [place] [employer] (CAP)-accredited to perform high complexity testing. [facility] PROFILE BY [id number] 18:38:44 Test Item Value Reference Range Interpretation Comments CAMPYLOBACTER (PCR) (test code = Not detected Not detected 20150928) PLESIOMONAS SHIGELLOIDES (PCR) Not detected Not detected (test code = 20151002) SALMONELLA (PCR) (test code = Not detected Not detected ) YERSINIA ENTEROCOLITICA (PCR) Not detected Not detected (test code = 20151025) VIBRIO CHOLERAE (PCR) (test code Not detected Not detected = 20151026) ENTEROAGGREGATIVE E. COLI (EAEC) Not detected Not detected BY PCR (test code = 6328644) ENTEROPATHOGENIC E. COLI (EPEC) Not detected Not detected BY PCR (test code = 0674693) ENTEROTOXIGENIC E. COLI (ETEC) Not detected Not detected LT/ST BY PCR (test code = 0957799) SHIGA-LIKE TOXIN-PRODUCING E. Not detected Not detected COLI (STEC) STX1/STX2 (test code = 0117091) E. COLI O157 (PCR) (test code = 2132133) SHIGELLA/ENTEROINVASIVE E. COLI Not detected Not detected (EIEC) BY PCR (test code = 6342146) CRYPTOSPORIDIUM (PCR) (test code Not detected Not detected = 20151102) CYCLOSPORA CAYETANENSIS (PCR) Not detected Not detected (test code = ) ENTAMOEBA HISTOLYTICA (PCR) Not detected Not detected (test code = 20151125) GIARDIA LAMBLIA (PCR) (test code Not detected Not detected = 20151126) ADENOVIRUS F 40/41 (PCR) (test Not detected Not detected code = 20151127) ASTROVIRUS (PCR) (test code = Not detected Not detected 20151128) NOROVIRUS GI/GII (PCR) (test Not detected Not detected code = 20151129) ROTAVIRUS A (PCR) (test code = Not detected Not detected 20151130) SAPOVIRUS (I, II, IV, V) BY PCR Not detected Not detected (test code = 8757965) VIBRIO (PARAHAEMOLYTICUS, Not detected Not detected VULNIFICUS) (test code = 6936855) Other viruses, parasites and bacteria not targeted by this PCR panel cannot be excluded; therefore clinical correlation and follow up of serology, culture results, and other molecular studies is required. The results are not intended to be used as the sole means for clinical diagnosis or patient management decisions. This sample was tested at the [facility] using the [employer] Gastrointestinal Panel. It is FDA cleared and has been verified and approved by the [facility] for clinical use. This laboratory is CLIA-certified and [employer] of[employer] (CAP)-accredited to perform high complexity testing.HEPATITIS B SURFACE [id number] 11:08:29 Test Item Value Reference Range Interpretation Comments HEPATITIS B SURFACE ANTIBODY < mIU/mL <8.0 (BEAKER) (test code = 647) Neck Cutter ID - BANDAR MHEPATITIS B SURFACE [id number] 04:25:17 Test Item Value Reference Range Interpretation Comments HEPATITIS B SURFACE ANTIGEN (2) Nonreactive Nonreactive (BEAKER) (test code = 2585) Neck Cutter ID - [id number] METABOLIC [id number] 04:16:49 Test Item Value Reference Range Interpretation [...] S NOT APPLICABLE FOR DIALYSIS PATIEN TS. Neck Cutter ID - WSME32Oitpregk ID - VDEA23Uqmmmvmq ID - XAPW97Xdetdtmd ID - SCAU69Eezhjlgg ID - DIAZ84Pjbhcpql ID - YRZJ31Zwfbdadn ID - KRYO93Suxixcyw ID - PCVY74Szevsoqu ID - ADPA98Sbvjgkec ID - JGDV89Ncrqphpt ID - XCIS19Urhlvkxm ID - RFYS73Ehucgxpd ID - ELZM05Wujlcclw ID - IWZP86Xnylcaqi ID - MOMO98Rjthnlho ID - VRYU61LUHCUQBPF7245-56-46 04:09:54 Test Item Value Reference Range Interpretation Comments MAGNESIUM (BEAKER) 1.9 mg/dL 1.5-3.0 Specimen moderately (test code = 627) hemolyzed Neck Cutter ID - HVYT01Hgdzpmwk ID - EQBU86Qxmtyoir ID - MPAK88Feakfdqn ID - ZNMP04 CALCIUM, [id number] 03:53:39 Test Item Value Reference Range Interpretation Comments CALCIUM IONIZED (BEAKER) (test 0.86 mmol/L 1.12-1.27 L code = 698) PH, BLOOD (BEAKER) (test code = 7.54 1810) CBC W/PLT COUNT & AUTO [id number] 03:53:15 Test Item Value Reference Range Interpretation [...] (BEAKER) (test code = 2801) Prepare Leuko-Red [id number] 23:55:00 Test Item Value Reference Range Interpretation Comments CROSSMATCH (test code = 2264) COMPATIBLE Unit ABO (test code = O Pos 6965559) UNIT NUMBER (test code = [id number] 934-0) Status (test code = 9298544) TX_TIMEINCHART Blood Bank Product (test code RED BLOOD CELLS = 2263) PRODUCT CODE (test code = V9270A20 933-2) [facility] Center[facility] [id number] 17:15:10 Test Item Value Reference Range Interpretation [...] S NOT APPLICABLE FOR DIALYSIS PATIEN TS. Neck Cutter ID - ONYINYEOperator ID - ONYINYEOperator ID - ONYINYEOperator ID - ONYINYEOperator ID - ONYINYEOperator ID - ONYINYEOperator ID - ONYINYEOperator ID - ONYINYEOperator ID - ONYINYEOperator ID - ONYINYEOperator ID - ONYINYEOperator ID - ONYINYEOperator ID - ONYINYECBC W/PLT COUNT & AUTO [id number] 17:03:51 Test Item Value Reference Range Interpretation [...] PERCENT (BEAKER) (test code = 2801) CALCIUM, [id number] 16:56:18 Test Item Value Reference Range Interpretation Comments CALCIUM IONIZED (BEAKER) (test 0.95 mmol/L 1.12-1.27 L code = 698) PH, BLOOD (BEAKER) (test code = 7.52 1810) Clostridium difficile GDH [id number] 12:56:45 Test Item Value Reference Range Interpretation Comments C. Difficle Toxin Negative Negative (test code = 8952843225) C. Difficile GDH Positive Negative A C. difficil e Antigen (test code = present but toxin 4183064776) not detected. Indicates colonization wi th non-toxigenic [...] performance was done by the [facility] prior to clinical use. Lab Interpretation Abnormal (test code = 68419-6) [facility] CenterClostridium difficile [facility] [id number] 12:56:45 Test Item Value Reference Range Interpretation Comments C. Difficle Toxin Negative Negative (test code = 5050405461) C. Difficile GDH Positive Negative A C. difficil e Antigen (test code = present but toxin 9664784208) not detected. Indicates colonization wi th non-toxigenic [...] performance was done by the [facility] prior to clinical use. Lab Interpretation Abnormal (test code = 77028-1) [facility] CenterClostridium difficile [facility] [id number] 12:56:45 Test Item Value Reference Range Interpretation Comments C. Difficle Toxin Negative Negative (test code = ) C. Difficile GDH Positive Negative A C. difficil e Antigen (test code = present but toxin 7593326313) not detected. Indicates colonization wi th non-toxigenic [...] performance was done by the [facility] prior to clinical use. Lab Interpretation Abnormal (test code = 04231-8) [facility] CenterClostridium difficile [facility] [id number] 12:56:45 Test Item Value Reference Range Interpretation Comments C. Difficle Toxin Negative Negative (test code = ) C. Difficile GDH Positive Negative A C. difficil e Antigen (test code = present but toxin 8812068460) not detected. Indicates colonization wi th non-toxigenic [...] performance was done by the [facility] prior to clinical use. Lab Interpretation Abnormal (test code = 73077-8) [facility] Center[facility]. DIFFICILE GDH [id number] 12:56:45 Test Item Value Reference Range Interpretation Comments CDT TOXIN (test code Negative Negative = ) CDT GDH ANTIGEN Positive Negative A C. difficile present but (test code = toxin not detec sally. ) Indicates colon ization with non-toxige keira strain [...] performance was done by the [facility] to clinical use.[id number] 11:25:57 Test Item Value Reference Range Interpretation Comments PHOSPHORUS (BEAKER) 2.4 mg/dL 2.5-4.5 L Specimen moderately (test code = 604) hemolyzed Neck Cutter ID - LITOOperator ID - LITOOperator ID - LITOOperator ID - FREEDOM COMPREHENSIVE METABOLIC [id number] 06:12:13 Test Item Value Reference Range Interpretation [...] S NOT APPLICABLE FOR DIALYSIS PATIEN TS. Neck Cutter ID - ADMINOperator ID - ADMINOperator ID - ADMINOperator ID - ADMINOperator ID - ADMINOperator ID - ADMINOperator ID - ADMINOperator ID - ADMINOperator ID - ADMINOperator ID - ADMINOperator ID- ADMINOperator ID - ADMINOperator ID - ADMINOperator ID - ADMINOperator ID - ADMINOperator ID - ADMI [id number] 06:02:00 Test Item Value Reference Range Interpretation Comments MAGNESIUM (BEAKER) 1.8 mg/dL 1.5-3.0 Specimen moderately (test code = 627) hemolyzed Neck Cutter ID - ADMINOperator ID - ADMINOperator ID - ADMINOperator ID - ADMINCBC W/PLT COUNT & AUTO [id number] 05:41:57 Test Item Value Reference Range Interpretation [...] (BEAKER) (test code = 2801) BASIC METABOLIC [id number] 20:07:52 Test Item Value Reference Range Interpretation [...] S NOT APPLICABLE FOR DIALYSIS PATIEN TS. Neck Cutter ID - [id number] ID - [id number] ID - [id number] ID - [id number] ID - [id number] ID - [id number] ID - [id number] ID - [id number] ID - [id number] ID - [id number] ID - [id number] ID - [id number] ID - [id number] Echo W/Doppler(CW/PW/Color)2021-08-12 11:40:21Ejection FractionSLEH ECHO HEARTLAB [facility] Echo W/Doppler(CW/PW/Color)2021-08-12 11:40:21Ejection FractionSLEH ECHO HEARTLAB [facility] Echo W/Doppler(CW/PW/Color) 2021-08-12 11:40:21Ejection FractionSLEH ECHO [facility]ART[facility] Echo W/Doppler(CW/PW/Color)2021-08-12 11:40:21[facility] 06:15:26 Test Item Value Reference Range Interpretation Comments FERRITIN (BEAKER) (test code = 1071.10 ng/mL 10.00-291.00 H 361) Neck Cutter ID - [id number] METABOLIC [id number] 04:03:51 Test Item Value Reference Range Interpretation [...] S NOT APPLICABLE FOR DIALYSIS PATIEN TS. Neck Cutter ID - [id number] ID - [id number] ID - [id number] ID - [id number] ID - [id number] ID - [id number] ID - [id number] ID - [id number] ID - [id number] ID - [id number] ID - [id number] ID - [id number] ID - [id number] ID - [id number] ID - [id number] ID - [id number] 03:37:52 Test Item Value Reference Range Interpretation Comments MAGNESIUM (BEAKER) (test code = 1.5 mg/dL 1.5-3.0 627) Neck Cutter ID - [id number] ID - [id number] ID - [id number] ID - [id number] W/PLT COUNT & AUTO [id number] 03:23:47 Test Item Value Reference Range Interpretation [...] 0-0 PERCENT (BEAKER) (test code = 2801) [id number] 20:33:51 Test Item Value Reference Range Interpretation Comments MAGNESIUM (BEAKER) 1.6 mg/dL 1.5-3.0 Specimen slightly (test code = 627) hemolyzed Neck Cutter ID - [id number] ID - [id number] ID - [id number] ID - [id number] METABOLIC [id number] 18:51:24 Test Item Value Reference Range Interpretation [...] S NOT APPLICABLE FOR DIALYSIS PATIEN TS. Neck Cutter ID - [id number] ID - [id number] ID - [id number] ID - [id number] ID - [id number] ID - [id number] ID - [id number] ID - [id number] ID - [id number] ID - [id number] ID - [id number] ID - [id number] ID - [id number], TIBC, % SAT. (WITHOUT FERRITIN)2021-08-11 12:03:57 Test Item Value Reference Range Interpretation Comments IRON (BEAKER) (test code = 547) 68.0 ug/dL 45.0-170.0 TOTAL IRON BINDING CAPACITY 66 ug/dL 250-550 L (BEAKER) (test code = 769) IRON % SATURATION (2) (BEAKER) 103 % 20-55 H (test code = 2590) Neck Cutter ID - [id number] ID - [id number] 11:00:01 Test Item Value Reference Range Interpretation Comments MAGNESIUM (BEAKER) 1.3 mg/dL 1.5-3.0 L Specimen slightly (test code = 627) hemolyzed Neck Cutter ID - [id number] METABOLIC [id number] 06:41:44 Test Item Value Reference Range Interpretation [...] S NOT APPLICABLE FOR DIALYSIS PATIEN TS. Neck Cutter ID - [id number] ID - [id number] ID - [id number] ID - [id number] ID - [id number] ID - [id number] ID - [id number] ID - [id number] ID - [id number] ID - [id number] ID - [id number] ID - yecvqpmlt069Xxnwhhmf ID - [id number] ID - [id number] ID - [id number] ID -[id number] [id number] 06:41:32 Test Item Value Reference Range Interpretation [...] Borderline 130-159 High 160-189 Very High >=190 Neck Cutter ID - [id number] ID - [id number] ID - [id number] ID - [id number] ID - [id number] ID - [id number] A1C 2021-08-11 06:37:45 Test Item Value Reference Range Interpretation Comments HEMOGLOBIN A1C (BEAKER) (test code = 4.7 % 4.3-6.1 368) Neck Cutter ID - [id number] W/PLT COUNT & AUTO [id number] 06:08:50 Test Item Value Reference Range Interpretation [...] PERCENT (BEAKER) (test code = 2801) POCT-GLUCOSE [id number] 11:15:00 Test Item Value Reference Range Interpretation Comments POC-GLUCOSE METER 99 mg/dL 70-110 : TESTED A T [facility] [address] (BEAKER) (test code = [address]) [place] [id number]: Neck Cutter/Techni daniel ID = [id number] for Radha Laiy POCT-GLUCOSE [id number] 11:15:00 Test Item Value Reference Range Interpretation Comments POC-GLUCOSE METER 79 mg/dL 70-110 : Notified RN/MD: TESTED ([facility] (test code = AT [address]) [place] [address]: Neck Cutter/Techni daniel ID = [id number] for Smita Campuzano POCT-GLUCOSE [id number] 11:15:00 Test Item Value Reference Range Interpretation Comments POC-GLUCOSE METER 106 mg/dL 70-110 : TESTED A T [facility] [address] (BEAKER) (test code [address], = [address]) [place] [address]: Neck Cutter/Techni daniel ID = [id number] for Valentina Piña POCT-GLUCOSE [id number] 11:15:00 Test Item Value Reference Range Interpretation Comments POC-GLUCOSE METER 82 mg/dL 70-110 : TESTED A T [facility] [address] (BEAKER) (test code = [address]) [place] [address]: Neck Cutter/Techni daniel ID = [id number] for Leatha alonzo, Raeann POCT-GLUCOSE [id number] 11:15:00 Test Item Value Reference Range Interpretation Comments POC-GLUCOSE METER 88 mg/dL 70-110 : TESTED A T [facility] [address] (BEAKER) (test code = [address], [address]) [place] [address]: Neck Cutter/Techni daniel ID = [id number] for Leatha alonzo, Raeann POCT-GLUCOSE [id number] 11:15:00 Test Item Value Reference Range Interpretation Comments POC-GLUCOSE METER 83 mg/dL 70-110 : Notified RN/MD: TESTED (BEAKER) (test code = [address], [place] [id number]: Neck Cutter/Techni daniel ID = [id number] for Maria Teresa Charlton POCT-GLUCOSE [id number] 11:15:00 Test Item Value Reference Range Interpretation Comments POC-GLUCOSE METER 110 mg/dL 70-110 : TESTED A T [facility] [address] (BEAKER) (test code [address], = [address]) [place] [address]: Neck Cutter/Techni daniel ID = [id number] for Maria Teresa Charlton POCT-GLUCOSE [id number] 11:14:00 Test Item Value Reference Range Interpretation Comments POC-GLUCOSE METER 96 mg/dL 70-110 : TESTED A T [facility] [address] (BEAKER) (test code = [address]) [place] [address]: Neck Cutter/Techni daniel ID = [id number] for Ali, Yaw POCT-GLUCOSE [id number] 11:14:00 Test Item Value Reference Range Interpretation Comments POC-GLUCOSE METER 97 mg/dL 70-110 : TESTED A T [facility] [address] (BEAKER) (test code = [address]) [place] [address]: Neck Cutter/Techni daniel ID = [id number] for Ali, Yaw POCT-GLUCOSE [id number] 11:14:00 Test Item Value Reference Range Interpretation Comments POC-GLUCOSE METER 99 mg/dL 70-110 : TESTED A T [facility] [address] (BEAKER) (test code = [address]) [place] [address]: Neck Cutter/Techni daniel ID = [id number] for Jennifer Pete POCT-GLUCOSE [id number] 11:14:00 Test Item Value Reference Range Interpretation Comments POC-GLUCOSE METER 91 mg/dL 70-110 : TESTED A T [facility] [address] (BEAKER) (test code = [address]) [place] [address]: Neck Cutter/Techni daniel ID = [id number] for Nwad iufu, Kim POCT-GLUCOSE [id number] 11:14:00 Test Item Value Reference Range Interpretation Comments POC-GLUCOSE METER 75 mg/dL 70-110 : TESTED A T [facility] [address] (BEAKER) (test code = [address]) [facility] [address]: Neck Cutter/Techni daniel ID = [id number] for Estelle Serra SARS-COV2/RT-PCR ([facility])2020-08-10 16:15:00 Test Item Value Reference Range Interpretation Comments SARS-COV2/RT-PCR Negative Not Detected, Performanc e of the Xpert (test code = Negative, See Xpress [id number]) external report SARS-CoV-2/F poly/RSV test for linked [...] laboratories. T his test is only authori ilana for the duration of the declaration lorena [...] sooner.Fact She et for Healthcare Prov iders: https://www.[employer] Documents/Xpert %20Xpress %58IOIR-RnF-5-F poly-RSV/30 2-4508%20Rev.%2 0B%20HCP% 20Fact%20Sheet. pdfFact Sheet for Healt hcare Patients: https://www.[employer] Documents/Xpert %20Xpress %27EUMH-WsS-4-F poly-RSV30 2-4507%20Rev.%2 0B%20Pati ent%20Fact%20Sh eet.pdf SARS-COV-2 SLSL Performed at:[facility]ING LAB [facility] (test code = [address] [id number]) [place] [address]p h: [phone] RAD, CHEST, 1 VIEW, NON [id number] 15:49:00Reason for exam:->New HemodialysisShould this be performed at the bedside?->Yes [facility] 1965 Sex: FFINAL REPORT CHEST AP PORTABLE SEMIERECT COMPARISON STUDY: 10/30/2018 History provided: Dialysis Radiographically normal-appearing heart and lungs. Tunneled dialysis catheter fromright jugular approach with catheter tip at the cavoatrial junction. Signed: Junito Mayberry MDReport Verified Date/Time: 08/10/2020 15:49:39 Reading Location: [facility] Radiology Reading Room Electronicallysigned by: JUNITO MAYBERRY on 08/10/2020 03:49 PMHEPATITIS B CORE ANTIBODY, [id number] 11:01:00 Test Item Value Reference Range Interpretation Comments HEPATITIS B CORE TOTAL ANTIBODY Nonreactive Nonreactive (BEAKER) (test code = 497) Neck Cutter ID - BANDAR MCOMPREHENSIVE METABOLIC [id number] 05:59:00 Test Item Value Reference Range Interpretation [...] S NOT APPLICABLE FOR DIALYSIS PATIEN TS. Neck Cutter ID - LITOOperator ID - LITOOperator ID [...] (test code = 2801) HEPATITIS B SURFACE [id number] 17:24:00 Test Item Value Reference Range Interpretation Comments HEPATITIS B SURFACE ANTIGEN (2) Nonreactive Nonreactive (BEAKER) (test code = 2585) Neck Cutter ID - GRACIANABIL, TUNNELED CATHETER [id number] 10:44:00Reason for Central Line/PICC?->Need for hemodialysis accessReason for exam:->Hemodialysis [facility] : 1965 Sex: FFINAL REPORT [...] the patient's medical record by the nurse. Station Mechanic Apprentice: Rigoberto Rey M.D. Director Of Mobile Marketing: None. Approach: Right internal jugular vein Estimated [...] needle into the right atrium. A 4 Slovenian micropuncture sheath was placed and a 0.035 wire was advanced into the IVC. A subcutaneous tunnel was created in the right anterior chest wall by blunt dissection. A 19 cm tip to cuff 15.5 Slovenian Duraflow 2 catheter was brought through the [...] MDReport Verified Date/Time: 08/09/2020 10:44:42 Reading Location: [facility] Radiology Reading Room BASIC METABOLIC [id number] 04:46:00 Test Item Value Reference Range Interpretation [...] S NOT APPLICABLE FOR DIALYSIS PATIEN TS. Neck Cutter ID - [id number] ID - [id number] ID - XRCR27Tqsnvops ID - HBYG50Lffogmzw ID - UNMI42Vuaclbit ID - KRVZ30Fnbpbrfz ID - YHOM03Luwnjwbw ID - GLQU17Mdzqbclb ID - PBYJ57Mfitexiy ID - BJHU11Vrzietzc ID - NKSU35Xfjkaldh ID - PRFH85Miwzmlnr ID - [id number] W/PLT COUNT & AUTO [id number] 04:27:00 Test Item Value Reference Range Interpretation [...] PERCENT (BEAKER) (test code = 2801) POCT-GLUCOSE [id number] 06:14:00 Test Item Value Reference Range Interpretation Comments POC-GLUCOSE METER 76 mg/dL 70-110 : TESTED A T [facility] [address] (BEAKER) (test code = [address], [address]) [facility] [address]: Neck Cutter/Techni daniel ID = [id number] for Tashia Rodney HEMOGLOBIN [id number] 05:40:00 Test Item Value Reference Range Interpretation Comments HEMOGLOBIN A1C (BEAKER) (test code = 4.4 % 4.3-6.1 368) Neck Cutter ID - [id number]-IWAURMO [id number] 20:58:00 Test Item Value Reference Range Interpretation Comments POC-GLUCOSE METER 118 mg/dL 70-110 H : TESTED A T [facility] [address] (BEAKER) (test code [address], = 15[address]) [place] [address]: Neck Cutter/Techni daniel ID = [id number] for Tashia Rodney VANCOMYCIN LEVEL, [id number] 08:10:00 Test Item Value Reference Range Interpretation Comments VANCOMYCIN TROUGH (BEAKER) (test 17.0 ug/mL 10.0-20.0 code = 522) Neck Cutter ID - [id number] [id number] 05:26:00 Test Item Value Reference Range Interpretation [...] Borderline 130-159 High 160-189 Very High >=190 Neck Cutter ID - gasl09Ocvuzngr ID - ggyz79Cvtowqbu ID - [id number] METABOLIC [id number] 05:26:00 Test Item Value Reference Range Interpretation [...] S NOT APPLICABLE FOR DIALYSIS PATIEN TS. Neck Cutter ID - umuv57Uknnkkcb ID - ltiq56Tmhhknrf ID - bzxf63Vvrlhvtd ID - oxkk94Zrpccvdw ID - wytn89Nbnwslxj ID - sryy93Mgqpmlun ID - yadl64Uknjllib ID - ksqb22Euvzuvov ID - kgaj33Tbsmnvxd ID - [id number] 05:18:00 Test Item Value Reference Range Interpretation Comments MAGNESIUM (BEAKER) (test code = 2.0 mg/dL 1.5-3.0 627) Neck Cutter ID - qzzh41Qcdgdhtc ID - xsod63Fxekcwvm ID - dddy84Bfzsbxga ID - zres04 [id number] 05:16:00 Test Item Value Reference Range Interpretation Comments PHOSPHORUS (BEAKER) (test code = 4.8 mg/dL 2.5-4.5 H 604) Neck Cutter ID - [id number] W/PLT COUNT & AUTO [id number] 05:10:00 Test Item Value Reference Range Interpretation [...] PERCENT (BEAKER) (test code = 2801) PROTHROMBIN TIME/[id number] 04:59:00 Test Item Value Reference Range Interpretation Comments PROTIME (BEAKER) 13.2 seconds 9.3-12.0 H Final Infor mation (test code = 759) (Auto Outp ut) INR (BEAKER) (test 1.20 See_Comment Final Inf ormation code = 370) (Auto Output) [Automated mess age] The system [employer] generated this result transmitted ref erence range: <=5.90. The reference range was not used to int erpret this result as normal/abnormal . RECOMMENDED COUMADIN/WARFARIN INR THERAPY RANGESSTANDARD DOSE: 2.0 - 3.0 Includes: PROPHYLAXIS for venous thrombosis, systemic embolization; TREATMENT for venous thrombosis and/or pulmonary embolus.HIGH RISK: Target INR is 2.5-3.5 for patients with mechanical heart valves.HEMOGLOBIN [id number] 04:50:00 Test Item Value Reference Range Interpretation Comments HEMOGLOBIN A1C (BEAKER) (test code = 4.5 % 4.3-6.1 368) Neck Cutter ID - [id number] FLUID CULTURE + GRAM [id number] 12:18:00 Test Item Value Reference Range Interpretation Comments CULTURE (BEAKER) (test No growth code = 1095) GRAM STAIN RESULT <1+ White blood cells (BEAKER) (test code = seen 1123) GRAM STAIN RESULT No organisms seen (BEAKER) (test code = 97545) BLOOD [id number] 08:01:00 Test Item Value Reference Range Interpretation Comments CULTURE (BEAKER) (test No growth in 5 days code = 1095) BLOOD [id number] 08:01:00 Test Item Value Reference Range Interpretation Comments CULTURE (BEAKER) (test No growth in 5 days code = 1095) POCT-GLUCOSE [id number] 14:58:00 Test Item Value Reference Range Interpretation Comments POC-GLUCOSE METER 101 mg/dL 70-110 TESTED AT [place] [address] ([facility]) (test code = [facility] 1538) [address] HEMOGLOBIN AND [id number] 12:19:00 Test Item Value Reference Range Interpretation Comments HEMOGLOBIN (BEAKER) (test code = 7.5 GM/DL 11.2-15.7 L 410) HEMATOCRIT (BEAKER) (test code = 23.1 % 34.1-44.9 L 411) POCT-GLUCOSE [id number] 08:37:00 Test Item Value Reference Range Interpretation Comments POC-GLUCOSE METER 168 mg/dL 70-110 H TESTED AT [place] [address] ([facility]) (test code = [facility] 1538) [address] LACTIC ACID, [id number] 07:04:00 Test Item Value Reference Range Interpretation Comments LACTATE BLOOD VENOUS 1.9 mmol/L 0.5-2.2 Specime n slightly (2) ([facility]) (test hemolyzed code = 2872) POCT-GLUCOSE [id number] 21:25:00 Test Item Value Reference Range Interpretation Comments POC-GLUCOSE METER 102 mg/dL 70-110 TESTED AT [place] [address] ([facility]) (test code = [facility] Kevin [facility] 1538) [address] POCT-GLUCOSE [id number] 18:50:00 Test Item Value Reference Range Interpretation Comments POC-GLUCOSE METER 91 mg/dL 70-110 TESTED AT [place] [address] ([facility]) (test code = [facility] [address]38) POCT-GLUCOSE [id number] 13:23:00 Test Item Value Reference Range Interpretation Comments POC-GLUCOSE METER 114 mg/dL 70-110 H TESTED AT [place] [address] ([facility]) (test code = [facility] 1538) [address] POCT-GLUCOSE [id number] 09:11:00 Test Item Value Reference Range Interpretation Comments POC-GLUCOSE METER 131 mg/dL 70-110 H TESTED AT [place] [address] ([facility]) (test code = [facility] 1538) [address] BASIC METABOLIC [id number] 06:45:00 Test Item Value Reference Range Interpretation [...] S NOT APPLICABLE FOR DIALYSIS PATIEN TS. [id number] 06:40:00 Test Item Value Reference Range Interpretation Comments PHOSPHORUS (BEAKER) (test code = 6.5 mg/dL 2.3-4.7 H 604) [id number] 06:40:00 Test Item Value Reference Range Interpretation Comments MAGNESIUM (BEAKER) (test code = 1.9 mg/dL 1.6-2.6 627) LACTIC ACID, [id number] 06:12:00 Test Item Value Reference Range Interpretation Comments LACTATE BLOOD VENOUS (2) (BEAKER) 2.3 mmol/L 0.5-2.2 H (test code = 9122) CBC W/PLT COUNT & AUTO [id number] 06:05:00 Test Item Value Reference Range Interpretation [...] PERCENT (BEAKER) (test code = 2801) POCT-GLUCOSE [id number] 21:04:00 Test Item Value Reference Range Interpretation Comments POC-GLUCOSE METER 135 mg/dL 70-110 H TESTED AT [place] [address] ([facility]) (test code = [facility] 1538) [address] [id number] 17:08:00 Test Item Value Reference Range Interpretation Comments FERRITIN (BEAKER) (test code = 1367 ng/mL 5-275 H 361) POCT-GLUCOSE [id number] 17:00:00 Test Item Value Reference Range Interpretation Comments POC-GLUCOSE METER 137 mg/dL 70-110 H TESTED AT [place] [address] ([facility]) (test code = [facility] 1538) [address] IRON, TIBC, % SAT. (WITHOUT FERRITIN)2018-10-30 16:48:00 Test Item Value Reference Range Interpretation Comments IRON (BEAKER) (test code = 547) 53.0 ug/dL 40.0-160.0 TOTAL IRON BINDING CAPACITY 135 ug/dL 250-450 L (BEAKER) (test code = 769) IRON % SATURATION (2) (BEAKER) 39 % 20-55 (test code = 2590) RETICULOCYTE [id number] 16:47:00 Test Item Value Reference Range Interpretation Comments RETICULOCYTE COUNT PCT (BEAKER) (test 2.1 % 0.5-1.7 H code = 575) LACTIC ACID, [id number] 14:17:00 Test Item Value Reference Range Interpretation Comments LACTATE BLOOD VENOUS (2) (BEAKER) 1.7 mmol/L 0.5-2.2 (test code = 2872) HEMOGLOBIN AND [id number] 14:03:00 Test Item Value Reference Range Interpretation Comments HEMOGLOBIN (BEAKER) (test code = 6.4 GM/DL 11.2-15.7 L 410) HEMATOCRIT (BEAKER) (test code = 20.2 % 34.1-44.9 L 411) POCT-GLUCOSE [id number] 11:11:00 Test Item Value Reference Range Interpretation Comments POC-GLUCOSE METER 143 mg/dL 70-[address] [facility] 6720 (BEAKER) (test code = [address] [place] 1538) [address] [id number] 03:47:00 Test Item Value Reference Range Interpretation Comments PROCALCITONIN (BEAKER) (test code 0.76 ng/mL <0.05 H = 3036) SEPSIS RISK (ng/mL)Low: 0.05-0.50Intermediate: 0.51-2.00High: >=2.01 [id number] 02:58:00 Test Item Value Reference Range Interpretation Comments PHOSPHORUS (BEAKER) (test code = 6.8 mg/dL 2.3-4.7 H 604) [id number] 02:58:00 Test Item Value Reference Range Interpretation Comments MAGNESIUM (BEAKER) (test code = 1.9 mg/dL 1.6-2.6 627) LACTIC ACID, [id number] 02:53:00 Test Item Value Reference Range Interpretation Comments LACTATE BLOOD VENOUS 1.6 mmol/L 0.5-2.2 Specime n slightly (2) (BEAKER) (test hemolyzed code = 2872) RAD, CHEST, 1 VIEW, NON [id number] 02:31:00Reason for exam:->altered mental statusShould this be [...] No acute cardiopulmonary abnormality. Signed: Bernardo Pleitez MDReport Verified Date/Time: 10/30/2018 02:31:36 OXYGEN SATURATION, [id number] 02:25:00 Test Item Value Reference Range Interpretation Comments O2 SATURATION (MEASURED) (BEAKER) 75.1 % (test code = 1455) If patient has internal jugular ( IJ) or subclavian central line or PICC line. Draw from distal port. Label as central venous oxygen.CBC W/PLT COUNT & AUTO [id number] 00:56:00 Test Item Value Reference Range Interpretation [...] (BEAKER) (test code = 2801) COMPREHENSIVE METABOLIC [id number] 00:46:00 Test Item Value Reference Range Interpretation [...] APPLICABLE FOR DIALYSIS PATIEN TS. LACTIC ACID, [id number] 00:27:00 Test Item Value Reference Range Interpretation Comments LACTATE BLOOD VENOUS (2) (BEAKER) 1.9 mmol/L 0.5-2.2 (test code = 2872) BLOOD GAS, [id number] 00:24:00 Test Item Value Reference Range Interpretation [...] (test code = 1819) 21.0 % POCT-GLUCOSE [id number] 23:54:00 Test Item Value Reference Range Interpretation Comments POC-GLUCOSE METER 249 mg/dL 70-[address] [facility] 6720 (BEAKER) (test code = [place] [address] [place] 1538) [address] BODY FLUID CELL COUNT WITH [id number] 21:57:00 Test Item Value Reference Range Interpretation [...] (test code = 2873) C. DIFFICILE GDH [id number] 10:06:00 Test Item Value Reference Range Interpretation Comments CDT TOXIN (test code Positive Negative A = [id number]) CDT GDH ANTIGEN Positive Negative A Confirms Beti stridium (test code = difficile-assoc iated [id number]) infection.First line therapy - oral Vancomycin. Con tinue enteric isolati on until 72 hours after treatment is discontinued and symptoms have r esolved. Testing performed by [employer] Rapid [employer]ette Assay. For GDH, published sensitivity of the assay is 98.7% compared to cytotoxicity testing. For Toxin AB, published sensitivity is 87.8% and specificity 99.4% compared to cytotoxicity testing.Verification of kit performance was done by the [facility] prior to clinical use.POCT-GLUCOSE [id number] 09:14:00 Test Item Value Reference Range Interpretation Comments POC-GLUCOSE METER 109 mg/dL 70-[address] [facility] [address] ([facility]) (test code = [place] 1538) [address] [id number] 08:46:00 Test Item Value Reference Range Interpretation Comments PROCALCITONIN (AKER) (test code 0.67 ng/mL <0.05 H = 3036) SEPSIS RISK (ng/mL)Low: 0.05-0.50Intermediate: 0.51-2.00High: >=2.01CBC W/PLT COUNT & AUTO [id number] 08:36:00 Test Item Value Reference Range Interpretation Comments WHITE BLOOD CELL COUNT ([facility]) 11.1 K/ L 3.5-10.5 H (test code = 775) RED BLOOD CELL COUNT ([facility]) 2.32 M/ L 3.93-5.22 L (test code [...] PERCENT (BEAKER) (test code = 2801) VITAMIN [id number] 07:12:00 Test Item Value Reference Range Interpretation Comments VITAMIN B12 (BEAKER) (test code = 680 pg/mL 213-816 774) TSH/FREE T4 IF [id number] 07:12:00 Test Item Value Reference Range Interpretation Comments THYROID STIMULATING HORMONE 0.94 uIU/mL 0.35-4.94 (BEAKER) (test code = 772) OSMOLALITY, [id number] 07:06:00 Test Item Value Reference Range Interpretation Comments OSMOLALITY, SERUM (BEAKER) (test 296 mOsm/kg 275-295 H code = 615) BASIC METABOLIC [id number] 06:11:00 Test Item Value Reference Range Interpretation [...] S NOT APPLICABLE FOR DIALYSIS PATIEN TS. [id number] 06:05:00 Test Item Value Reference Range Interpretation Comments PHOSPHORUS (BEAKER) (test code = 7.4 mg/dL 2.3-4.7 H 604) [id number] 06:05:00 Test Item Value Reference Range Interpretation Comments MAGNESIUM (BEAKER) (test code = 2.0 mg/dL 1.6-2.6 627) HEPATIC FUNCTION [id number] 06:05:00 Test Item Value Reference Range Interpretation [...] code = 39 U/L 6-55 347) C-REACTIVE [id number] 06:05:00 Test Item Value Reference Range Interpretation Comments C-REACTIVE PROTEIN (BEAKER) (test 1.72 mg/dL 0.00-0.50 H code = 676) [id number] 05:56:00 Test Item Value Reference Range Interpretation Comments AMMONIA (BEAKER) (test code = 348) 16 mol/L 18-72 L RAD, CHEST, 1 VIEW, NON [id number] 21:14:00Reason for exam:->chest painIs the patient ?->UnknownShould [facility]?->YesFINAL REPORT Chest, 1 view. History: Chest pain Comparison: Plain radiograph the chest dated 01/15/2018.. Findings: The cardiomediastinal silhouette and pulmonary vasculature are within normal limits for a portable exam. The lungs are clear without evidence of consolidation or effusion. The soft tissues and osseous structures are intact. IMPRESSION: No acute cardiopulmonary abnormality. Signed: Bernardo Pleitez [facility] Verified Date/Time: 10/28/2018 21:14:02 URINALYSIS [id number] 20:54:00 Test Item Value Reference Range Interpretation Comments RBC UA (BEAKER) (test code = 519) 1 /HPF WBC UA (BEAKER) (test code = 520) 10 /HPF SQUAMOUS EPITHELIAL (BEAKER) (test 5 /HPF code = 516) HYALINE CASTS (BEAKER) (test code = 2 /LPF 514) URINALYSIS WITH MICROSCOPIC IF [id number] 20:52:00 Test Item Value Reference Range Interpretation [...] SOURCE(BEAKER) (test code = 2795) BASIC METABOLIC [id number] 20:32:00 Test Item Value Reference Range Interpretation [...] S NOT APPLICABLE FOR DIALYSIS PATIEN TS. [id number] 20:29:00 Test Item Value Reference Range Interpretation Comments MAGNESIUM (BEAKER) (test code = 2.0 mg/dL 1.6-2.6 627) [id number] 20:29:00 Test Item Value Reference Range Interpretation Comments LIPASE (BEAKER) (test code = 749) 65 U/L 8-78 [id number] 20:10:00 Test Item Value Reference Range Interpretation [...] mechanical heart valves.CBC W/PLT COUNT & AUTO [id number] 20:05:00 Test Item Value Reference Range Interpretation [...] (test code = 2801) CT, BRAIN, WITHOUT [id number] 19:38:00Reason for exam:->ALTERED MENTAL STATUSReason for exam:->GENERALIZED [...] of the periventricular and subcortical white matter arepresent. No hydrocephalus. Orbits are within normal limits. [...] If there is persistent clinical concern for intracranialpathology, MR examination is recommended for further characterization. Signed: Ruth Benítezort Verified Date/Time: 10/28/2018 19:38:10 Reading Location: [facility] C013V Neuro Reading Room [facility] signed by: RUTH BENÍTEZ MD on 10/28/2018 07:38 PMHEMOGLOBIN [id number] 07:56:00 Test Item Value Reference Range Interpretation Comments HEMOGLOBIN A1C (BEAKER) (test code = 6.1 % 4.3-6.1 368) VITAMIN [id number] 06:59:00 Test Item Value Reference Range Interpretation Comments VITAMIN B12 (BEAKER) (test code = 483 pg/mL 213-816 774) TSH/FREE T4 IF [id number] 06:59:00 Test Item Value Reference Range Interpretation Comments THYROID STIMULATING HORMONE 1.74 uIU/mL 0.35-4.94 (BEAKER) (test code = 772) BASIC METABOLIC [id number] 06:04:00 Test Item Value Reference Range Interpretation [...] NOT APPLICABLE FOR DIALYSIS PATIEN TS. LIPID [id number] 05:54:00 Test Item Value Reference Range Interpretation [...] Very High >=190CBC W/PLT COUNT & AUTO [id number] 04:52:00 Test Item Value Reference Range Interpretation [...] (test code = 2801) MR, BRAIN, WITHOUT [id number] 04:11:00FINAL REPORT MRI Brain without contrast Clinical History: TIA/Stroke Technique:MRI of the brain utilizing axial T2, FLAIR, GRE, DWI; sagittal and coronal T1-weighted images. MRA of the head utilizing 3-D dpyz-gq-dcngtn technique, with 3-D reconstructions. MRA of the neck utilizing 2-D and 3-D adcf-zi-qhsisf technique, with 3-D reconstructions. Comparisons: None Findings:MRI [...] MRA head: No evidence for a major craig of Rincon proximal branch vessel occlusion. MRA neck: No evidence of hemodynamically significant stenosis in the cervical carotid or vertebral arteries by NASCET criteria. Signed: Bernardo Pleitez MDReportVerified Date/Time: 08/19/2018 04:11:07 Reading Location: [address] Transitional Reading Room MR, MRA, BRAIN, WITHOUT [id number] 04:11:00FINAL REPORT MRI Brain without contrast Clinical History: TIA/Stroke Technique:MRI of the brain utilizing axial T2, FLAIR, GRE, DWI; sagittal and coronal T1-weighted images. MRA of the head utilizing 3-D bsyv-ko-erpgbg technique, with 3-D reconstructions. MRA of the neck utilizing 2-D and 3-D wrxb-ll-dzekfs technique, with 3-D reconstructions. Comparisons: None Findings:MRI [...] MRA head: No evidence for a major craig of Rincon proximal branch vessel occlusion. MRA neck: No evidence of hemodynamically significant stenosis in the cervical carotid or vertebral arteries by NASCET criteria. Signed: Bernardo Pleitez MDReportVerified Date/Time: 08/19/2018 04:11:07 Reading Location: [address] Transitional Reading Room MR, MRA, NECK, WITHOUT IV [id number] 04:11:00Reason for exam:->Stroke/TIAFINAL REPORT MRI Brain without contrast Clinical History: TIA/Stroke Technique:MRI of the brain utilizing axial T2, FLAIR, GRE, DWI; sagittal and coronal T1-weighted images. MRA of the head utilizing 3-D xxgr-rb-gzxhwi technique, with 3-D reconstructions. MRA of the neck utilizing 2- D and 3-D pwdr-cf-orfjin technique, with 3-D reconstructions. Comparisons: None Findings:MRI [...] MRA head: No evidence for a major craig of Rincon proximal branch vessel occlusion. MRA neck: No evidence of hemodynamically significant stenosis in the cervical carotid or vertebral arteries by NASCET criteria. Signed: Bernardo Pleitez MDReportVerified Date/Time: 08/19/2018 04:11:07 Reading Location: [facility] C0[facility] Transitional Reading Room POCT-GLUCOSE [id number] 21:55:00 Test Item Value Reference Range Interpretation Comments POC-GLUCOSE METER 115 mg/dL 70-[address] [facility] [facility] (test code = [place] [address]) [address] POCT-GLUCOSE [id number] 18:29:00 Test Item Value Reference Range Interpretation Comments POC-GLUCOSE METER 93 mg/dL 70-[address] [facility] ([place]) (test code = [place] [address]) [address], CTA [id number] 10:10:00Reason for Exam:->assess iliac vessels, pre kidney transplantAddendum BeginsREPORT STATUS:A Addendum: I agree with the previously described non vascular findings. Signed: Cristopher Fitzpatrick MDReport Verified Date/Time: 06/27/2018 10:10:18 Reading Location: [place] [address] Angio Body Reading RoomAddendum EndsFINAL REPORT CT angiography of the abdominal aorta and pelvic arteries, 25-Jun-18 INDICATION: This is a 53 year old female with end-stage renal disease, presents for pretransplant assessment. This study is performed in anattempt to avoid an invasive procedure. TECHNIQUE: Spiral acquisition before and during intravenous contrast administration using a Hoard multidetector CT scanner. Images were obtained before [...] except for minimal calcific atherosclerosis identified proximally. Gut Puller dimensions of the left and the right external iliac arteries are 6 and 6 mm, respectively. Similarly, the associated pelvic veins are patent with no venous thrombosis identified. Gut Puller dimensions of the left and the right [...] no arterial stenosis or venous thrombosis identified. Gut Puller dimensions of the left and the right external iliac arteries and veins are as described above. 2. Widely patent mesenteric arteries. Patent renal arteries. 3. Other findings as described above. 4. An addendum will be dictated regarding the non-vascular findings by the Insulating Machine Operator Radiologist. Signed: Samson Mcgill MDReport Verified Date/Time: 06/25/2018 09:45:12 Reading Location: [place] [address] Cardiology MRI OCCULT BLOOD, [id number] 00:49:00 Test Item Value Reference Range Interpretation Comments FECAL OCCULT BLOOD (BEAKER) (test Negative Negative code = 618) U/S, ABDOMINAL, [id number] 13:53:00Reason for Exam:->pre transplant evaluationFINAL REPORT Abdominal [...] MDReport Verified Date/Time: 03/01/2018 13:53:56 Reading Location: [facility] P006J Ultrasound Reading Room OCCULT BLOOD, [id number] 11:11:00 Test Item Value Reference Range Interpretation Comments FECAL OCCULT BLOOD (BEAKER) (test Negative Negative code = 618) [id number] 10:23:00 Test Item Value Reference Range Interpretation Comments PHOSPHORUS (BEAKER) (test code = 3.9 mg/dL 2.3-4.7 604) PROTHROMBIN [id number] 10:21:00 Test Item Value Reference Range Interpretation Comments PROTIME (BEAKER) (test code = 13.2 seconds 11.7-14.7 759) INR (BEAKER) (test code = 370) 1.0 <=5.9 RECOMMENDED COUMADIN/WARFARIN INR THERAPY RANGESSTANDARD DOSE: 2.0 - 3.0 Includes: PROPHYLAXIS for venous thrombosis, systemic embolization; TREATMENT for venous thrombosis and/or pulmonary embolus.HIGH RISK: Target INR is 2.5-3.5 for patients with mechanical heart valves.URINE [id number] 10:03:00 Test Item Value Reference Range Interpretation Comments CULTURE (BEAKER) (test 40-49,000 col/mL skin code = 1095) johnny CYTOMEGALOVIRUS ANTIBODY, [id number] 10:10:00 Test Item Value Reference Range Interpretation Comments CYTOMEGALOVIRUS, IGG (BEAKER) Positive Negative, Equivocal A (test code = 3429) CMV IgG Result Interpretation: </= 0.8 Al Negative 0.9-1.0 Al Equivocal >/=1.1 Al PositiveCYTOMEGALOVIRUS ANTIBODY, [id number] 10:10:00 Test Item Value Reference Range Interpretation Comments CYTOMEGALOVIRUS IGM ANTIBODY Positive Negative, Equivocal A (BEAKER) (test code = 3437) CMV IgM Result Interpretation: </= 0.8 Al Negative 0.9-1.0 Al Equivocal >/= 1.1 Al PositiveEBV ANTIBODY, [id number] 10:10:00 Test Item Value Reference Range Interpretation Comments ASHELY JENNINGS VIRAL CAPSID Positive Negative, Equivocal A ANTIGEN IGG (BEAKER) (test code = 3415) Ashely Jennings Viral Capsid Antigen IgG Result Interpretation: </= 0.8 Al Negative 0.9-1.0 Al Equivocal >/= 1.1 Al PositiveEBV ANTIBODY, [id number] 10:10:00 Test Item Value Reference Range Interpretation Comments ASHELY JENNINGS VIRAL CAPSID Negative Negative, Equivocal ANTIGEN IGM (BEAKER) (test code = 3418) Ashely Jennings Viral Capsid Antigen IgM Result Interpretation: </= 0.8 Al Negative 0.9-1.0 Al Equivocal >/= 1.1 Al PositiveVARICELLA ZOSTER ANTIBODY, [id number] 10:09:00 Test Item Value Reference Range Interpretation Comments VARICELLA ZOSTER IGG (AL) (BEAKER) > (test code = 3197) VARICELLA ZOSTER RESULT INTERPRETATIONS: <=0.8 Al Nonreactive: Presumed non- immune to VZV 0.9-1.0 Al Equivocal >=1.1 Al Reactive: Presumed immune to VZV [id number] 07:38:00 Test Item Value Reference Range Interpretation Comments RPR SCREEN (BEAKER) (test code = Nonreactive Nonreactive 420) CBC W/PLT COUNT & AUTO [id number] 14:38:00 Test Item Value Reference Range Interpretation [...] (test code = 2801) RAD, CHEST, 2 [id number] 12:48:00Reason for Exam:->pre transplant evaluationFINAL REPORT PA and Lateral views of the chest dated 01/15/2018 Clinical information: pre transplant evaluation Comment: Heart is normal in size. Pulmonary vasculature is unremarkable. Lungs are clear. No pulmonary infiltrate or pleural effusion is present. Impression: No active ca rdiopulmonary disease. Signed: Daiana Anaya MDReport Verified Date/Time: 01/15/2018 12:48:30 Reading Location: [address] Radiology Reading Room HEMOGLOBIN [id number] 11:27:00 Test Item Value Reference Range Interpretation Comments HEMOGLOBIN A1C (BEAKER) (test code = 5.6 % 4.3-6.1 368) URINALYSIS W/ [id number] 11:23:00 Test Item Value Reference Range Interpretation [...] = 1585) Rare SOURCE(BEAKER) (test code = 4165) COMPREHENSIVE METABOLIC [id number] 10:41:00 Test Item Value Reference Range Interpretation [...] NOT APPLICABLE FOR DIALYSIS PATIEN TS. URIC [id number] 10:04:00 Test Item Value Reference Range Interpretation [...] H code = 635) HEPATITIS B SURFACE [id number] 10:03:00 Test Item Value Reference Range Interpretation Comments HEPATITIS B SURFACE ANTIGEN (2) Nonreactive Nonreactive (BEAKER) (test code = 2585) HEPATITIS B SURFACE [id number] 10:03:00 Test Item Value Reference Range Interpretation Comments HEPATITIS B SURFACE ANTIBODY 69.3 mIU/mL <8.0 H (BEAKER) (test code = 647) HEPATITIS B CORE ANTIBODY, [id number] 10:03:00 Test Item Value Reference Range Interpretation Comments HEPATITIS B CORE IGM ANTIBODY Nonreactive Nonreactive (BEAKER) (test code = 645) HEPATITIS C [id number] 10:03:00 Test Item Value Reference Range Interpretation Comments HEPATITIS C ANTIBODY (BEAKER) Nonreactive Nonreactive (test code = 367) HIV-1 ANTIGEN WITH HIV-1/2 [id number] 10:03:00 Test Item Value Reference Range Interpretation Comments HIV-1 ANTIGEN WITH HIV 1\T\2 Nonreactive Nonreactive ANTIBODY (2) ([employer]) (test code = 2586) PTH, [id number] 09:45:00 Test Item Value Reference Range Interpretation Comments PARATHYROID HORMONE INTACT 308.0 pg/mL 8.5-72.5 H ([employer]) (test code = 577) [id number] 09:31:00 Test Item Value Reference Range Interpretation Comments PROTIME ([employer]) (test code = 14.4 seconds 11.7-14.7 759) INR ([employer]) (test code = 370) 1.1 <=5.9 PARTIAL THROMBOPLASTIN TIME 29.8 seconds 22.5-36.0 ([employer]) (test code = 760) RECOMMENDED COUMADIN/WARFARIN INR THERAPY RANGESSTANDARD DOSE: 2.0 - 3.0 Includes: PROPHYLAXIS for venous thrombosis, systemic embolization; TREATMENT for venous thrombosis and/or pulmonary embolus.HIGH RISK: Target INR is 2.5-3.5 for patients with mechanical heart valves.
--- NOTE | 2022-02-13 16:38 | RAD REPORT ---
EXAM DESCRIPTION: RAD - Chest Single View - 02/13/2022 4:32 pm CLINICAL HISTORY: weakness Chest pain. COMPARISON: Chest Single View dated 02/10/2022; Chest Single View dated 09/30/2021; Chest Single View dated 08/10/2021; Abdomen 1 View (KUB) dated 08/06/2020 FINDINGS: Portable technique limits examination quality. The lungs are grossly clear. The heart is normal in size. No displaced fractures.Right-sided venous c atheter its tip in the right atrium. IMPRESSION: No acute intrathoracic process suspected.
[2022-02-13] MEDS ORDERED: NA CHLORIDE 0.9% 500 ML ONE (17:08)
[2022-02-13 17:44] LABS: Absolute Lymphocytes (CBC) 1.4 K/uL (0.7-4.9); Hematocrit 32.8 % (36.0-45.0); Lymphocytes % 35.1 % (15.3-44.8); MCV 102.2 fL (80-100); MPV 8.9 fL (7.6-11.3); RBC Red Blood Cell Count 3.21 M/uL (3.86-4.86)
[2022-02-13 18:03] LABS: AST/SGOT 9 U/L (15-37); Albumin 2.3 g/dL (3.4-5.0); Alkaline Phosphatase 54 U/L (45-117); BUN Blood Urea Nitrogen 20 mg/dL (7-18); Bicarbonate 28 mmol/L (21-32); Bilirubin Total 0.5 mg/dL (0.2-1.0); Creatine Phosphokinase 59 U/L (26-192); Glomerular Filtration Rate 6 ml/min (=/>90); Glucose Level 88 mg/dL (74-106); Magnesium 2.2 mg/dL (1.8-2.4); Potassium 3.3 mmol/L (3.5-5.1); Sodium Level 139 mmol/L (136-145); Troponin High Sensitivity 21.1 pg/mL (<58.9)
[2022-02-13 18:10] LABS: ALT/SGPT < 10 U/L (12-78)
--- NOTE | 2022-02-13 18:36 | ER ---
Nurse's Notes [facility] Name: Maki Tabares Age: 56 yrs Sex: Female : 1965 Arrival Date: 02/13/2022 Time: 15:31 Bed 8 Private MD: Diagnosis: Moderate protein-calorie malnutrition Presentation: 02/13 15:32 Chief complaint: EMS states: toned out due to caregiver calling due to general weakness kr3 that started 4 days ago, mucus like stool, patient can usually get up and down with little assistance, currently she is unable to get out of bed. PCP confirmed needing to come to ED. Coronavirus screen: Vaccine status: Patient reports receiving the 2nd dose of the covid vaccine. Client denies travel out of the [place] in the last 14 days. Ebola Screen: Patient denies exposure to infectious person. Patient denies travel to an Ebola-affected area in the 21 days before illness onset. Initial Sepsis Screen: Does the patient meet any 2 criteria? Altered Mental Status. No. Patient's initial sepsis screen is negative. Does the patient have a suspected source of infection? No. Patient's initial sepsis screen is negative. Risk Assessment: Do you want to hurt yourself or someone else? Patient reports no desire to harm self or others. Onset of symptoms was February 10, 2022. 15:32 Method Of Arrival: EMS kr3 15:32 Acuity: TAVIA 3 kr3 Triage Assessment: 15:38 General: Appears in no apparent distress. comfortable, Behavior is calm, cooperative, kr3 quiet. Pain: Denies pain. Historical: - Allergies: 15:38 crawfish; kr3 15:38 SHELLFISH; kr3 - PMHx: 15:38 Diabetes - NIDDM; Dialysis; peritoneal; Seizure; Parkinsons; Hypertension; kr3 Hyperlipidemia; - PSHx: 15:38 Total abdominal hysterectomy; kr3 - Immunization history:: Adult Immunizations not up to date. - Social history:: Smoking status: Patient denies any tobacco usage or history of. - Family history:: not pertinent. Screenin:25 Abuse screen: Denies threats or abuse. Denies injuries from another. Nutritional as6 screening: No deficits noted. Tuberculosis screening: No symptoms or risk factors identified. Fall Risk None identified. Assessment: 16:00 General: Appears in no apparent distress. comfortable, Behavior is calm, cooperative, kr3 quiet. Pain: Denies pain. Neuro: Level of Consciousness is awake, alert, obeys commands. Cardiovascular: Patient's skin is warm and dry. Respiratory: Airway is patent Respiratory effort is even, unlabored, Respiratory pattern is regular, symmetrical. 16:30 Reassessment: No changes from previously documented assessment. Patient and/or family kr3 updated on plan of care and expected duration. Pain level reassessed. Patient is alert, oriented x 3, equal unlabored respirations, skin warm/dry/pink. 17:30 Reassessment: No changes from previously documented assessment. Patient and/or family kr3 updated on plan of care and expected duration. Pain level reassessed. Patient is alert, oriented x 3, equal unlabored respirations, skin warm/dry/pink. 18:19 Reassessment: No changes from previously documented assessment. Patient and/or family kr3 updated on plan of care and expected duration. Pain level reassessed. Patient is alert, oriented x 3, equal unlabored respirations, skin warm/dry/pink. Vital Signs: 15:32 BP 153 / 68; Pulse 61; Resp 16; Temp 98.2; Pulse Ox 99% on R/A; Weight 67.13 kg; Height kr3 5 ft. 1 in. (154.94 cm); Pain 0/10; 16:30 BP 119 / 65; Pulse 59; Resp 16; Pulse Ox 98% on R/A; kr3 17:30 BP 132 / 70; Pulse 53; Resp 16; Pulse Ox 99% on R/A; kr3 19:25 BP 156 / 66; Pulse 57; Resp 16 S; Pulse Ox 97% on R/A; as6 21:02 BP 170 / 70; Pulse 53; Resp 13; Pulse Ox 100% on R/A; kd3 15:32 Body Mass Index 27.96 (67.13 kg, 154.94 cm) kr3 ED Course: 15:31 Patient arrived in ED. kr3 15:38 Triage completed. kr3 15:38 Arm band placed on right wrist. Patient placed in an exam room, on a stretcher. kr3 15:40 Michael Garcia MD is Attending Physician. rt 16:15 Inserted saline lock: 22 gauge in right antecubital area, using aseptic technique. kr3 Blood collected. 16:34 Chest Single View XRAY In Process Unspecified. EDMS 17:05 Tiffanie Giang, RN is Primary Nurse. kr3 18:35 Hernesto Davis MD is Hospitalizing Provider. rt 19:25 Bed in low position. Call light in reach. as6 21:02 No provider procedures requiring assistance completed. Patient admitted, IV remains in kd3 place. Administered Medications: 17:33 Drug: NS 0.9% 500 ml Route: IV; Rate: bolus; Site: right forearm; kr3 21:03 Follow up: IV Status: Completed infusion kd3 Medication: 19:25 VIS not applicable for this client. as6 Outcome: 18:35 Decision to Hospitalize by Provider. rt 21:02 Admitted to Med/surg kd3 21:02 Condition: stable 21:02 Discharge instructions given to patient, Instructed on the need for admit, Demonstrated understanding of instructions. 21:10 Patient left the ED. kd3 Signatures: Dispatcher [employer] EDTX Jerad Lopez RN RN as6 Dayan Montana RN RN kd3 Tiffanie Giang, RN RN kr3 Michael Garcia MD MD rt
--- NOTE | 2022-02-13 18:36 | EDPHYS ---
Physician Documentation [facility] Name: Maki Tabares Age: 56 yrs Sex: Female : 1965 Arrival Date: 02/13/2022 Time: 15:31 Bed 8 Private MD: ED Physician Michael Garcia HPI: 02/13 16:02 This 56 yrs old Black Female presents to ER via EMS with complaints of General Weakness.rt 16:02 Generalized weakness. Onset: The symptoms/episode began/occurred 3 day(s) ago. Severity rt of symptoms: At their worst the symptoms were moderate. Patient was seen on for a fall, was noted to have hypokalemia, prescribed oral potassium. The patient has had generalized weakness, progressively worsening since Sunday. She denies any pain but has had some diarrhea. She last dialyzed yesterday due to the holidays. She denies other acute complaints at this time, symptoms are moderate in severity, no other aggravating or alleviating factors. Historical: - Allergies: 15:38 crawfish; kr3 15:38 SHELLFISH; kr3 - PMHx: 15:38 Diabetes - NIDDM; Dialysis; peritoneal; Seizure; Parkinsons; Hypertension; kr3 Hyperlipidemia; - PSHx: 15:38 Total abdominal hysterectomy; kr3 - Immunization history:: Adult Immunizations not up to date. - Social history:: Smoking status: Patient denies any tobacco usage or history of. - Family history:: not pertinent. ROS: 16:02 Eyes: Negative for injury, pain, redness, and discharge, ENT: Negative for injury, rt pain, and discharge, Neck: Negative for injury, pain, and swelling, Cardiovascular: Negative for chest pain, palpitations, and edema, Respiratory: Negative for shortness of breath, cough, wheezing, and pleuritic chest pain, MS/Extremity: Negative for injury and deformity, Skin: Negative for injury, rash, and discoloration, Neuro: Negative for headache, weakness, numbness, tingling, and seizure, Psych: Negative for depression, anxiety, suicide ideation, homicidal ideation, and hallucinations. 16:02 Constitutional: Positive for Generalized weakness, negative for fever. 16:02 Abdomen/GI: Positive for diarrhea, Negative for abdominal pain, nausea and vomiting. Exam: 16:02 Constitutional: This is a well developed, well nourished patient who is awake, alert, rt and in no acute distress. Head/Face: Normocephalic, atraumatic. Eyes: Pupils equal round and reactive to light, extra-ocular motions intact. Lids and lashes normal. Conjunctiva and sclera are non-icteric and not injected. Cornea within normal limits. Periorbital areas with no swelling, redness, or edema. Neck: Trachea midline, no thyromegaly or masses palpated, and no cervical lymphadenopathy. Supple, full range of motion without nuchal rigidity, or vertebral point tenderness. No Meningismus. Cardiovascular: Regular rate and rhythm with a normal S1 and S2. No gallops, murmurs, or rubs. Normal PMI, no JVD. No pulse deficits. Respiratory: Lungs have equal breath sounds bilaterally, clear to auscultation and percussion. No rales, rhonchi or wheezes noted. No increased work of breathing, no retractions or nasal flaring. Abdomen/GI: Soft, non-tender, with normal bowel sounds. No distension or tympany. No guarding or rebound. No evidence of tenderness throughout. Skin: Warm, dry with normal turgor. Normal color with no rashes, no lesions, and no evidence of cellulitis. MS/ Extremity: Pulses equal, no cyanosis. Neurovascular intact. Full, normal range of motion. Neuro: Awake and alert, GCS 15, oriented to person, place, time, and situation. Cranial nerves II-XII grossly intact. Motor strength 5/5 in all extremities. Sensory grossly intact. Cerebellar exam normal. Normal gait. Psych: Awake, alert, with orientation to person, place and time. Behavior, mood, and affect are within normal limits. 16:02 ENT: Dry Mucous membranes, no posterior pharyngeal erythema. 16:02 Chest/axilla: Dialysis port noted to the right upper chest, no deformities noted. 18:50 ECG was reviewed by the Attending Physician. rt Vital Signs: 15:32 BP 153 / 68; Pulse 61; Resp 16; Temp 98.2; Pulse Ox 99% on R/A; Weight 67.13 kg; Height kr3 5 ft. 1 in. (154.94 cm); Pain 0/10; 16:30 BP 119 / 65; Pulse 59; Resp 16; Pulse Ox 98% on R/A; kr3 17:30 BP 132 / 70; Pulse 53; Resp 16; Pulse Ox 99% on R/A; kr3 19:25 BP 156 / 66; Pulse 57; Resp 16 S; Pulse Ox 97% on R/A; as6 21:02 BP 170 / 70; Pulse 53; Resp 13; Pulse Ox 100% on R/A; kd3 15:32 Body Mass Index 27.96 (67.13 kg, 154.94 cm) kr3 MDM: 15:43 Patient medically screened. rt 18:50 Differential Diagnosis Electrolyte abnormality, sepsis, anemia, ACS, dysrhythmia.. Data rt reviewed: vital signs, nurses notes, old medical records, lab test result(s), EKG, radiologic studies. 18:50 ED course: Who presents to the ED with generalized weakness, progressively worsening rt weakness. Her potassium has improved, the rest of her work-up is benign. I discussed case with the patient's PCP who admit the patient for further care.. 02/13 15:58 Order name: CBC with Diff; Complete Time: 17:59 rt 02/13 15:58 Order name: CMP; Complete Time: 18:16 rt 02/13 15:58 Order name: CPK; Complete Time: 18:16 rt 02/13 15:58 Order name: Troponin HS; Complete Time: 18:16 rt 02/13 15:58 Order name: Magnesium; Complete Time: 18:16 rt 02/13 19:14 Order name: SARS RAPID as6 02/13 15:58 Order name: EKG; Complete Time: 15:58 rt 02/13 15:58 Order name: EKG - Nurse/Tech; Complete Time: 18:01 rt 02/13 15:58 Order name: Chest Single View XRAY; Complete Time: 16:47 rt EC:50 Rate is 54 beats/min. Rhythm is regular, Sinus bradycardia. QRS [place] is Normal. TX rt interval is normal. QRS interval is normal. QT interval is normal. No Q waves. T waves are Normal. No ST changes noted. Interpreted by me. Administered Medications: 17:33 Drug: NS 0.9% 500 ml Route: IV; Rate: bolus; Site: right forearm; kr3 21:03 Follow up: IV Status: Completed infusion kd3 Disposition Summary: 02/13/22 18:35 Hospitalization Ordered Hospitalization Status: Observation rt Provider: Hernesto Davis rt Location: Telemetry/MedSurg (observation) rt Condition: Stable rt Problem: new rt Symptoms: are unchanged rt Bed/Room Type: Standard rt Room Assignment: 214(02/13/22 20:04) cg Diagnosis - Moderate protein-calorie malnutrition rt Forms: - Medication Reconciliation Form rt - SBAR form rt Signatures: Dispatcher [employer] Krissy Posey RN RN cg Tiffanie Giang RN RN kr3 Michael Garcia MD MD rt Dayan Montana RN kd3 Corrections: (The following items were deleted from the chart) 20:04 18:35 rt cg
[2022-02-13 19:57] LABS: SARS-CoV-2 Antigen Rapid Res Negative (Negative)
[2022-02-13] MEDS ORDERED: clonazePAM 1 MG TAB PO PRN (22:16)
[2022-02-13 23:11] LABS: RBC Red Blood Cell Count 3.42 M/uL (3.86-4.86)
[2022-02-14 06:41] LABS: Absolute Lymphocytes (CBC) 1.5 K/uL (0.7-4.9); Hematocrit 30.7 % (36.0-45.0); Lymphocytes % 38.9 % (15.3-44.8); MCV 103.4 fL (80-100); MPV 8.7 fL (7.6-11.3); RBC Red Blood Cell Count 2.97 M/uL (3.86-4.86)
[2022-02-14 07:06] LABS: AST/SGOT 7 U/L (15-37); Albumin 2.2 g/dL (3.4-5.0); Alkaline Phosphatase 47 U/L (45-117); BUN Blood Urea Nitrogen 24 mg/dL (7-18); Bicarbonate 26 mmol/L (21-32); Bilirubin Total 0.4 mg/dL (0.2-1.0); Glomerular Filtration Rate 6 ml/min (=/>90); Glucose Level 74 mg/dL (74-106); HDL Cholesterol 27 mg/dL (40-60); LDL Cholesterol, Calculated 98 mg/dL (<130); Potassium 3.2 mmol/L (3.5-5.1); Protein, Total 5.3 g/dL (6.4-8.2); Sodium Level 138 mmol/L (136-145)
[2022-02-14 07:07] LABS: ALT/SGPT < 10 U/L (12-78)
[2022-02-14] MEDS: levETIRAcetam 500 MG/5 ML OSYR FT SCH ×2 (08:44→21:35)
[2022-02-14] MEDS: APIXABAN 5 MG TABLET PO SCH ×2 (08:44→21:35)
[2022-02-14] MEDS: TOPIRAMATE 25 MG TAB PO SCH ×2 (08:44→21:35)
[2022-02-14] MEDS: PYRIDOXINE (VIT B6) 50 MG TAB FT SCH (08:44)
[2022-02-14] MEDS: CARBIDOPA/LEVODOPA 25/100 TAB PO SCH ×4 (08:44→21:35)
--- NOTE | 2022-02-14 10:55 | P.SSS ---
Patient History Date of Service: 02/14/22 Primary Care Provider: Ryan Reason for admission: Fall, parkinsons History of Present Illness: Patient is an office patient of [employer]. History of Parkinsons and esrd (TTS with Dr. Hanson). She was found half in and half out of her bed by her caregiver. EMS was called. this is per the patient. She denies falling. She was having difficulty standing in the ER and was admitted for observation. The patient's baseline is to be able to stand and walk a few steps. She can transfer Needs assistance. She is currently standing with PT when I entered the room. She has no complaints of fevers, chills, sob, chestpain or cough. She was recently stopped on her beta blockers and htn medications by Dr. Hanson. This was due to hypotension during dialysis I agree with that plan of care Allergies CRAWFISH Allergy (Uncoded 06/14/21 11:42) Rash Home Medications: Acetaminophen [Pain Relief] 650 mg FT Q4H PRN 10/01/21 Apixaban [Eliquis *] 5 mg FT BID 10/01/21 Carbidopa/Levodopa [Carbidopa-Levodopa 25-100 Tab] 2 tab FT TID 10/01/21 Ferrous Sulfate [Ferrous Sulfate Elixir*] 300 mg FT DAILY 10/01/21 Hydralazine [Apresoline*] 100 mg FT Q8H 10/01/21 Lacosamide 1 tab FT BID 10/01/21 Levetiracetam [Roweepra] 1,000 mg FT DAILY 10/01/21 Metoprolol Tartrate 100 mg FT BID 10/01/21 Nut.tx.impaired Renal Fxn,Soy [Novasource Renal 2 Dima] 30 ml FT SEECOM 10/01/21 Pravastatin [Pravachol*] 20 mg FT BEDTIME 10/01/21 Pyridoxine HCl [Vitamin B-6] 25 mg FT DAILY 10/01/21 Rotigotine [Neupro] 1 patch TD DAILY 10/01/21 Topiramate 50 mg FT BID 10/01/21 Valproic Acid (As Sodium Salt) [Valproic Acid] 20 ml FT TID 10/01/21 - Past Medical/Surgical History Has patient received pneumonia vaccine in the past: No Diabetic: No -: HTN -: Parkinson's -: Depression -: Pseudotumor cerebri -: No evidence of sleep apnea by sleep study -: ESRD/PD -: Anemia -: SEIZURE -: Hysterectomy -: Tubal -: Breast reduction -: TOTAL KNEE REPLACEMENT Psychosocial/ Personal History: Patient lives alone but has family come to check on her frequently - Family History Father -: Hypertension, Diabetes, Stroke Mother -: Hypertension, Diabetes SISTERS -: Hypertension, Cancer Notes: PHLEBITIS, FEMALE CANCER - Social History Smoking Status: Never smoker Alcohol use: No CD- Drugs: No Caffeine use: No Place of Residence: Home Review of Systems 10-point ROS is otherwise unremarkable General: Weakness Physical Examination - Vital Signs Temperature: 98.0 F Blood Pressure: 152/79 Pulse: 57 Respirations: 16 Pulse Ox (%): 98 - Physical Exam General: Alert, In no apparent distress HEENT: Atraumatic, PERRLA, Mucous membr. moist/pink, EOMI, Sclerae nonicteric Neck: Supple, 2+ carotid pulse no bruit, No LAD, Without JVD or thyroid abnormality Respiratory: Clear to auscultation bilaterally, Normal air movement Cardiovascular: Regular rate/rhythm, Normal S1 S2 Gastrointestinal: Normal bowel sounds, No tenderness Musculoskeletal: No tenderness Integumentary: No rashes Neurological: Normal gait, Normal speech, Normal tone, Normal affect, Abnormal strength (4/5 which is her baseline ) Lymphatics: No axilla or inguinal lymphadenopathy - Studies Laboratory Data (last 24 hrs) 02/13/22 17:18: Sodium 139, Potassium 3.3 L, BUN 20 H, Creatinine 7.05 H*, Glucose 88, Magnesium 2.2, Total Bilirubin 0.5, AST 9 L, ALT < 10 L, Alkaline Phosphatase 54 02/13/22 17:18: WBC 3.90 L, Hgb 11.0 L, Hct 32.8 L, Plt Count 107 L - Diagnosis (Problem(s)) (1) Parkinsons disease Current Visit: Yes Status: Acute Plan: Patient would like to go home. She may not have been able to assist her caregiver last night. If she does well with PT we can send her home after dialysis (2) ESRD (end stage renal disease) Current Visit: Yes Status: Acute Plan: Dr. Hanson to manage dialysis (3) Diabetes Current Visit: No Status: Acute Plan: will monitor her with accuchecks. Mild sliding scale. Qualifiers: Diabetes mellitus type: type 2 Diabetes mellitus fdc insulin use: without long term care pharmacist use Diabetes mellitus complication status: without complication Qualified Code(s): E11.9 - Type 2 diabetes mellitus without complications - Disposition Disposition: ROUTINE DISCHARGE Diet: ADA Activity: Ad roslyn Physician Review: Patient Assessed, Agree with Above Assessment and Plan Critical Care: No Time Spent Managing Pts Care (In Minutes): 70
--- NOTE | 2022-02-14 13:49 | EKG ---
Test Date: 2022-02-13 Test Time: 17:45:43 Director Of Neurology: GABRIELLE MEASUREMENT RESULTS: Intervals: Rate: 54 OK: 156 QRSD: 106 QT: 506 QTc: 479 [place]: P: 31 OK: 156 QRS: 18 T: -13 INTERPRETIVE STATEMENTS: Sinus bradycardia Cannot rule out Anterior infarct, age undetermined Abnormal ECG Compared to ECG 02/10/2022 17:03:34 No significant changes Electronically Signed On 02-14-22 13:47:00 COLLECTIONS PROFESSIONAL by Macario Garcia
--- NOTE | 2022-02-14 19:49 | P.CNS ---
Date of Consult: 02/14/22 Reason for Consult: ESRD Requesting Physician: Hernesto Davis Primary Care Provider: Ryan Chief Complaint: Fall, parkinsons History of Present Illness: 56 yo BF CKD, Parkinson Ds presented to the ER with several days of moderate, progressive weakness with associated anorexia in the setting of persistent hypokalemia. 16:02 This 56 yrs old Black Female presents to ER via EMS with complaints of General Weakness.rt 16:02 Generalized weakness. Onset: The symptoms/episode began/occurred 3 day(s) ago. Severity rt of symptoms: At their worst the symptoms were moderate. Patient was seen on for a fall, was noted to have hypokalemia, prescribed oral potassium. The patient has had generalized weakness, progressively worsening since Sunday. She denies any pain but has had some diarrhea. She last dialyzed yesterday due to the holidays. She denies other acute complaints at this time, symptoms are moderate in severity, no other aggravating or alleviating factors. Case reviewed at length with the patient and the family. The family is concerned about her ability to live alone and want her to go to rehab. Allergies CRAWFISH Allergy (Uncoded 06/14/21 11:42) Rash Home medications list reviewed: Yes Home Medications: Acetaminophen [Pain Relief] 650 mg FT Q4H PRN 10/01/21 Apixaban [Eliquis *] 5 mg FT BID 10/01/21 Carbidopa/Levodopa [Carbidopa-Levodopa 25-100 Tab] 2 tab FT TID 10/01/21 Ferrous Sulfate [Ferrous Sulfate Elixir*] 300 mg FT DAILY 10/01/21 Hydralazine [Apresoline*] 100 mg FT Q8H 10/01/21 Lacosamide 1 tab FT BID 10/01/21 Levetiracetam [Roweepra] 1,000 mg FT DAILY 10/01/21 Metoprolol Tartrate 100 mg FT BID 10/01/21 Nut.tx.impaired Renal Fxn,Soy [Novasource Renal 2 Dima] 30 ml FT SEECOM 10/01/21 Pravastatin [Pravachol*] 20 mg FT BEDTIME 10/01/21 Pyridoxine HCl [Vitamin B-6] 25 mg FT DAILY 10/01/21 Rotigotine [Neupro] 1 patch TD DAILY 10/01/21 Topiramate 50 mg FT BID 10/01/21 Valproic Acid (As Sodium Salt) [Valproic Acid] 20 ml FT TID 10/01/21 - Past Medical/Surgical History Diabetic: No -: HTN -: Parkinson's -: Depression -: Pseudotumor cerebri -: No evidence of sleep apnea by sleep study -: ESRD/HD (Dr. Mcgarry) -: Anemia -: SEIZURE -: Hysterectomy -: Tubal -: Breast reduction -: TOTAL KNEE REPLACEMENT Psychosocial/ Personal History: Patient lives alone but has family come to check on her frequently - Family History Father Medical History: Hypertension, Diabetes, Stroke Mother Medical History: Hypertension, Diabetes SISTERS Medical History: Hypertension, Cancer Notes: PHLEBITIS, FEMALE CANCER - Social History Smoking Status: Unknown if ever smoked Alcohol use: No CD- Drugs: No Caffeine use: No Place of Residence: Home Review of Systems 10-point ROS is otherwise unremarkable General: Weakness Neurological: Weakness Physical Examination Temp Pulse Resp BP Pulse Ox 98.7 F 62 16 153/76 H 99 02/14/22 12:00 02/14/22 12:00 02/14/22 12:00 02/14/22 12:00 02/14/22 12:00 General: In no apparent distress, Oriented x3, Cooperative HEENT: Atraumatic Neck: Supple Respiratory: Clear to auscultation bilaterally Cardiovascular: No edema, Regular rate/rhythm Gastrointestinal: Soft and benign, Non-distended Musculoskeletal: No clubbing, No contractures Integumentary: No rashes, No cyanosis Neurological: Abnormal speech Blood work reviewed in the chart. Imagings Data: [facility] EXAM DESCRIPTION: RAD - Chest Single View - 02/13/2022 4:32 pm CLINICAL HISTORY: weakness Chest pain. COMPARISON: Chest Single View dated 02/10/2022; Chest Single View dated 09/30/2021; Chest Single View dated 08/10/2021; Abdomen 1 View (KUB) dated 08/06/2020 FINDINGS: Portable technique limits examination quality. The lungs are grossly clear. The heart is normal in size. No displaced fractures.Right-sided venous catheter its tip in the right atrium. IMPRESSION: No acute intrathoracic process suspected. Conclusions/Impression: ESRD -Acute HD today -Seen and examined at the end of HD -Consult Dr. Decker for PD cath removal Hypokalemia -Replete potassium -HD with 4K bath HTN with CKD/ CHF -Monitor BP Diastolic CHF, chronic -HD with UF -Low sodium diet -Daily weight Moderate malnutrition/ Hypoalbuminemia Decreased functional ability with anorexia -Start Nepro Anemia in CKD -Retacrit X1 CKD MBD -Start Ergocalciferol Case reviewed with Dr. Davis Thank you kindly for the consultation
[2022-02-14] MEDS: TRAZODONE 50 MG TABLET PO SCH (21:35)
[2022-02-14] MEDS: NEPRO SHAKE 237 ML CAN PO SCH (21:36)
[2022-02-15 05:33] LABS: Absolute Lymphocytes (CBC) 1.6 K/uL (0.7-4.9); Hematocrit 31.7 % (36.0-45.0); Lymphocytes % 45.3 % (15.3-44.8); MCV 103.9 fL (80-100); MPV 9.4 fL (7.6-11.3); RBC Red Blood Cell Count 3.05 M/uL (3.86-4.86)
[2022-02-15 06:08] LABS: AST/SGOT 9 U/L (15-37); Albumin 2.3 g/dL (3.4-5.0); Alkaline Phosphatase 60 U/L (45-117); BUN Blood Urea Nitrogen 18 mg/dL (7-18); Bicarbonate 24 mmol/L (21-32); Bilirubin Total 0.5 mg/dL (0.2-1.0); Glomerular Filtration Rate 8 ml/min (=/>90); Glucose Level 88 mg/dL (74-106); Potassium 3.5 mmol/L (3.5-5.1); Protein, Total 5.8 g/dL (6.4-8.2); Sodium Level 136 mmol/L (136-145)
[2022-02-15 06:09] LABS: ALT/SGPT < 10 U/L (12-78)
[2022-02-15 07:05] LABS: Blood Morphology Comment NOT SEEN (NOT SEEN); Platelet Estimate DECR
[2022-02-15] MEDS: levETIRAcetam 500 MG/5 ML OSYR FT SCH ×2 (07:52→20:23)
[2022-02-15] MEDS ORDERED: LIDOCAINE 1.5% W/EPI AMP 5 ML ONE (08:25)
[2022-02-15] MEDS ORDERED: NA CHLORIDE 0.9% 500 ML ONE (08:26)
[2022-02-15] MEDS: APIXABAN 5 MG TABLET PO SCH ×2 (09:00→20:21)
[2022-02-15] MEDS: NEPRO SHAKE 237 ML CAN PO SCH ×3 (09:00→20:23)
[2022-02-15] MEDS: TOPIRAMATE 25 MG TAB PO SCH ×2 (09:00→20:21)
[2022-02-15] MEDS: CARBIDOPA/LEVODOPA 25/100 TAB PO SCH ×4 (09:00→20:20)
[2022-02-15] MEDS: PYRIDOXINE (VIT B6) 50 MG TAB FT SCH (09:00)
[2022-02-15] MEDS: MULTIVITAMINS,THERAPEUT 1 TAB PO SCH (09:00)
[2022-02-15] MEDS ORDERED: EPOETIN ALFA-EPBX 10,000 UNIT/ML VIAL SQ SCH (09:00)
[2022-02-15] MEDS ORDERED: propofoL 200 MG/20 ML VIAL IV ONE (09:13)
[2022-02-15] MEDS ORDERED: FENTANYL CITR 100 MCG/2 ML ONE (09:14)
[2022-02-15] MEDS ORDERED: MIDAZOLAM HCL 2 MG/2 ML INJ ONE (09:14)
[2022-02-15] MEDS ORDERED: LIDOCAINE 2% MPF 5 ML VIAL ONE (09:14)
[2022-02-15] MEDS ORDERED: ONDANSETRON 4 MG/2 ML VIAL ONE (09:41)
[2022-02-15] MEDS ORDERED: CEFAZOLIN SODIUM 1 GM/VIAL ONE (09:47)
--- NOTE | 2022-02-15 10:23 | P.OP ---
Preoperative diagnosis: Peritoneal Dialysis Catheter Dysfunction Postoperative diagnosis: Peritoneal Dialysis Catheter Dysfunction Primary procedure: Removal of Peritoneal Dialysis Catheter Anesthesia: GETA + Local Estimated blood loss: <2cc Specimen: Catheter for ID only Findings: no signs of infection, catheter fibrin buildup in lumen, adipose Complications: None Transferred to: Recovery Room Condition: Good
[2022-02-15] MEDS: HYDROMORPHONE HCL 1 MG/ML INJ ONE ×2 (10:48→11:02)
--- NOTE | 2022-02-15 10:59 | OP ---
Date of Procedure: 02/15/2022 Surgeon: Riki Decker MD, Preoperative Diagnosis: Peritoneal dialysis catheter dysfunction. Postoperative Diagnosis: Peritoneal dialysis catheter dysfunction. Procedure Performed: Removal of peritoneal dialysis catheter. Anesthesia: General endotracheal plus local with 0.25% Marcaine. Estimated Blood Loss: Less than 2 cc. Specimen: Catheter for ID only. Findings: No significant signs of infection. There was catheter and fibrin buildup within the lumen and some adipose tissue within the lumen of the catheter. Complications: None. Disposition: The patient was transferred to the recovery room in good condition. Procedure In Detail: After informed consent was obtained, the patient was brought to the operating r oom, prepped and draped in the usual sterile fashion after adequate anesthesia achieved. I grasped a right-sided abdominal peritoneal dialysis catheter. It had a double-cuffed catheter type orientatio n. I pulled the catheter in close apposition to the skin for the proximal cuff to be accessed. Ulti hildaly, I made a small dilation of the insertion site and allowed me to access the proximal catheter cuff. I then circumferentially dissected this free using electrocautery. The catheter was then free d at this point. I then palpated the deep cuff at this point and I anesthetized the skin overlying t he deep cuffs at the medial aspect of the abdominal wall at this point and I incised the skin and dis sected down bluntly to expose the catheter at the rectus sheath. I then circumferentially dissected this free using electrocautery and using gentle traction, I was able to pull the cuff into the surgic al field ultimately ligating the tissues attached to the cuff at this point. I grasped the fascia wi th Yash clamps, elevated, removed the catheter, sent it off after transecting, I sent both proximal and distal aspects of the catheter for ID only. I then closed the deep cuff anterior rectus sheath using 0 Vicryl suture in a running fashion with good approximation of tissues. I then copiously irri gated the insertion site, the deep cuff site and the tract between the 2 using sterile saline. Minim al hemostatic maneuvers required with simple electrocautery at this point. After this was achieved, I then closed the deep layer using 3-0 Vicryl suture and I trimmed the edges of the proximal side usi ng a tenotomy scissor and then closed with interrupted pablo and a sterile dressing placed over top . The patient tolerated the procedure well without evidence of complication and transferred to PACU in good condition. All counts were correct at the end of the case. RADHA/JYOTI Voice ID: [id number] Report ID: [id number]
--- NOTE | 2022-02-15 11:06 | P.PN ---
Nephrology note: (S) Pt seen in the PACU area post PD catheter removal, she is lethargic but in hemodynamically stable condition. General: Lethargic but NAD HEENT: Atraumatic, sclera anicteric, face mask Neck: Supple, Rt IJ TDC Respiratory: b/l air entry, no rhonchi Cardiovascular: No edema, Regular rate/rhythm Gastrointestinal: Abd binder, mild distention Musculoskeletal: No clubbing, No contractures Integumentary: No rashes, No cyanosis Neurological: Lethargic, unable to assess further as pt post anesthesia Conclusions/Impression: ESRD -Dialyzed yesterday, typically dialyzes MWF but schedule has been changed as an OP due to holidays and pt does not appear to require additional HD today. Non azotemic and with K < 3.5 on admission possibly in the setting of reduced PO intake. Hypokalemia -Repleted, dialyzed with higher K bath Chronic HTN with relative hypotension at times -Monitor BP off scheduled anti hypertensives Generalized weakness, hx of Parkinson's disease -Strength had improved some since earlier in the year and pt had gone home and then completed [facility] stint a few mo ago. Has not been able to follow up with her Neurologist in several months. Ruben Roman MD, BLAINE
--- NOTE | 2022-02-15 11:35 | EKG ---
Test Date: 2022-02-15 Test Time: 08:06:27 Program Control Analyst: MORGAN MEASUREMENT RESULTS: Intervals: Rate: 68 [place]: 152 QRSD: 96 QT: 418 QTc: 444 [place]: P: 46 [place]: 152 QRS: 11 T: 13 INTERPRETIVE STATEMENTS: Normal sinus rhythm Cannot rule out Anterior infarct, age undetermined Abnormal ECG Compared to ECG 02/13/2022 17:45:43 Sinus bradycardia no longer present Myocardial infarct finding still present Electronically Signed On 02-15-22 11:34:26 WORD PROCESSOR by Ja Hudson
--- NOTE | 2022-02-15 12:15 | CON ---
Date of Consultation: 02/15/2022 Brief History Of Present Illness: The patient is a 56-year-old black female, known to me with a hist ory of Parkinson disease and chronic renal failure, who had a hemodialysis catheter placed in the [facility] t. She has been using hemodialysis catheter without any issue; however, she ultimately had a signifi cant long convalescence in the hospital requiring hemodialysis in the acute phase. She ultimately di d not have her PD cath accessed and ultimately the peritoneal dialysis catheter failed and as such, I am consulted for removal. She is seen in my clinic regarding removal of the peritoneal dialysis cat heter; however, she has not had an opportunity to go see her brake [employer], Dr. Clark to have cardia c clearance for this procedure and as such, continues to be on Eliquis for her congestive heart failu re. She is admitted to the hospital with weakness, fatigue, and I am consulted to remove the periton eal dialysis catheter this time. Past Medical History: Significant for congestive heart failure, hypertension, Parkinson, depression, pseudotumor cerebri, sleep apnea, end-stage renal disease, on hemodialysis, anemia, seizure disorder . Past Surgical History: Includes hysterectomy, tubal ligation, breast reduction, total knee replaceme nt, peritoneal dialysis catheter and hemodialysis catheter placements. Family History: Significant for hypertension, diabetes, stroke. Allergies: TO CRAWFISH. Home Medications: Include Tylenol, Eliquis, carbidopa/levodopa, ferrous sulfate, Apresoline, ___, Levetiracetam, metoprolol, [employer], Pravachol, vitamin B6, Neupro, and topiramate, valproic a jane. Review of Systems: A 10-point review of systems other than HPI, denies. Physical Examination: General: At the time of my examination; she is awake, alert, oriented. Psychiatric: She is appropriate, conversive. HEENT: She is normocephalic, otherwise her sclerae were anicteric. Mucous membranes moist. Orophar ynx clear. Neck: Supple without JVD. Chest: Normal expansion and excursion. Cardiovascular: Regular rate and rhythm. Pulmonary: Clear to auscultation bilaterally. Abdomen: Soft, nontender. There was a peritoneal dialysis catheter in place. Extremities: No clubbing, cyanosis. Skin: Warm and dry. Laboratory Data: Revealed a white blood cell count of 3.6, hemoglobin 10.6, hematocrit , p latelet count was 86. Neutrophils are 40. Her sodium 136, potassium 3.5, chloride 106, carbon dioxi de is 24, BUN 18, creatinine 5.8. AST is 9, ALT less than 10, alkaline phosphatase 60. She had imag ing performed, which included chest x-ray and a 12-lead EKG was performed. I have asked Dr. Hudson to see the patient. We have discussed the case. He states she is relatively low risk for the proced ure at this point. Await the official consultation to corroborate this. Impression; on the chest x- ray, no acute intrathoracic process suspected. Assessment And Plan: This is a 56-year-old female, who presented to the hospital with a nonfunctiona l peritoneal dialysis catheter. 1.Continue medical management. 2.I have explained risks, benefits, and alternatives of removal of the tunneled peritoneal dialysis catheter including, but not limited to bleeding, infection, damage to surrounding tissues, need for f urther operation and procedures. I stated because she is on blood thinners, she has increased risk f or having complications related to bleeding in the perioperative period; however, we will hold her El iquis and continue in 2-3 days postoperatively with anticoagulation. The patient agrees to proceed a s indicated. Thank you for this interesting consult. RADHA/JYOTI Voice ID: [id number] Report ID: [id number]
--- NOTE | 2022-02-15 14:30 | P.PN ---
Subjective Date of Service: 02/15/22 Primary Care Provider: Ryan Chief Complaint: Fall, parkinsons Subjective: No new changes (Patient only able to walk 10 steps with PT) Patient is s/p peritoneal catheter removal Review of Systems 10-point ROS is otherwise unremarkable General: Weakness Physical Examination - Vital Signs Temperature: 97.4 F Blood Pressure: 127/77 Pulse: 66 Respirations: 18 Pulse Ox (%): 95 - Physical Exam General: Alert, In no apparent distress HEENT: Atraumatic, PERRLA, EOMI Neck: Supple, JVD not distended Respiratory: Clear to auscultation bilaterally, Normal air movement Cardiovascular: Regular rate/rhythm, Normal S1 S2 Gastrointestinal: Normal bowel sounds, No tenderness Musculoskeletal: No tenderness Integumentary: No rashes Neurological: Normal speech, Normal tone, Normal affect Lymphatics: No axilla or inguinal lymphadenopathy Assessment And Plan - Current Problems (Diagnosis) (1) Parkinsons disease Current Visit: Yes Status: Acute Plan: Patient would like to go home. She may not have been able to assist her c aregiver last night. If she does well with PT we can send her home after dialysis 02/15 Patient is not able to walk 10 steps with PT. Her sister states she can't take care of her at home. The patient is willing to go to a rehab center. (2) ESRD (end stage renal disease) Current Visit: Yes Status: Acute Plan: Dr. Hanson to manage dialysis (3) Diabetes Current Visit: No Status: Acute Plan: will monitor her with accuchecks. Mild sliding scale. Qualifiers: Diabetes mellitus type: type 2 Diabetes mellitus shelter insulin use: without shelter use Diabetes mellitus complication status: without complication Qualified Code(s): E11.9 - Type 2 diabetes mellitus without complications Discharge Plan: LTAC Plan to discharge in: 48 Hours - Code Status/Comfort Care Code Status Assessed: No Physician Review: Patient Assessed, Agree with Above Assessment and Plan Critical Care: No Time Spent Managing PTS Care (In Minutes): 25
[2022-02-15] MEDS: HYDROCODONE/APAP 5/325 MG TAB PO PRN (20:21)
[2022-02-15] MEDS: TRAZODONE 50 MG TABLET PO SCH (20:21)
[2022-02-16] MEDS: HYDROCODONE/APAP 5/325 MG TAB PO PRN (02:44)
[2022-02-16 06:10] LABS: Absolute Lymphocytes (CBC) 1.3 K/uL (0.7-4.9); Hematocrit 31.5 % (36.0-45.0); Lymphocytes % 31.6 % (15.3-44.8); MCV 104.2 fL (80-100); MPV 8.9 fL (7.6-11.3); RBC Red Blood Cell Count 3.03 M/uL (3.86-4.86)
[2022-02-16 06:47] LABS: AST/SGOT 10 U/L (15-37); Albumin 2.2 g/dL (3.4-5.0); Alkaline Phosphatase 64 U/L (45-117); BUN Blood Urea Nitrogen 30 mg/dL (7-18); Bicarbonate 23 mmol/L (21-32); Bilirubin Total 0.4 mg/dL (0.2-1.0); Glomerular Filtration Rate 6 ml/min (=/>90); Glucose Level 106 mg/dL (74-106); Potassium 3.5 mmol/L (3.5-5.1); Protein, Total 5.8 g/dL (6.4-8.2); Sodium Level 136 mmol/L (136-145)
[2022-02-16 06:49] LABS: ALT/SGPT < 10 U/L (12-78)
[2022-02-16] MEDS: TOPIRAMATE 25 MG TAB PO SCH ×2 (07:52→20:50)
[2022-02-16] MEDS: CARBIDOPA/LEVODOPA 25/100 TAB PO SCH ×4 (07:52→20:50)
[2022-02-16] MEDS: APIXABAN 5 MG TABLET PO SCH ×2 (07:52→20:50)
[2022-02-16] MEDS: MULTIVITAMINS,THERAPEUT 1 TAB PO SCH (07:53)
[2022-02-16] MEDS: PYRIDOXINE (VIT B6) 50 MG TAB FT SCH (07:53)
[2022-02-16] MEDS: levETIRAcetam 500 MG/5 ML OSYR FT SCH ×2 (07:53→20:50)
[2022-02-16] MEDS: NEPRO SHAKE 237 ML CAN PO SCH ×3 (07:54→21:01)
[2022-02-16] MEDS ORDERED: POTASSIUM 25 MEQ EFFERV TAB PO ONE (08:00)
--- NOTE | 2022-02-16 11:12 | P.PN ---
Subjective Date of Service: 02/16/22 Primary Care Provider: Ryan Chief Complaint: Fall, parkinsons Patient has dialysis today No pain from surgical site this morning Review of Systems 10-point ROS is otherwise unremarkable Physical Examination - Vital Signs Temperature: 97.5 F Blood Pressure: 134/83 Pulse: 67 Respirations: 14 Pulse Ox (%): 95 - Physical Exam General: Alert, In no apparent distress HEENT: Atraumatic, PERRLA, EOMI Neck: Supple, JVD not distended Respiratory: Clear to auscultation bilaterally, Normal air movement Cardiovascular: Regular rate/rhythm, Normal S1 S2 Gastrointestinal: Normal bowel sounds, No tenderness Musculoskeletal: No tenderness Integumentary: No rashes Neurological: Normal speech, Normal tone, Normal affect Lymphatics: No axilla or inguinal lymphadenopathy Assessment And Plan - Current Problems (Diagnosis) (1) Parkinsons disease Current Visit: Yes Status: Acute Plan: Patient would like to go home. She may not have been able to assist her caregiver last night. If she does well with PT we can send her home after dialysis 02/15 Patient is not able to walk 10 steps with PT. Her sister states she can't take care of her at home. The patient is willing to go to a rehab center. (2) ESRD (end stage renal disease) Current Visit: Yes Status: Acute Plan: Dr. Hanson to manage dialysis (3) Diabetes Current Visit: No Status: Acute Plan: will monitor her with accuchecks. Mild sliding scale. 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
[2022-02-16] MEDS: TRAZODONE 50 MG TABLET PO SCH (20:50)
[2022-02-17] MEDS: HYDROCODONE/APAP 5/325 MG TAB PO PRN (02:24)
[2022-02-17] MEDS: MULTIVITAMINS,THERAPEUT 1 TAB PO SCH (09:00)
[2022-02-17] MEDS: NEPRO SHAKE 237 ML CAN PO SCH ×3 (09:00→20:11)
[2022-02-17] MEDS: TOPIRAMATE 25 MG TAB PO SCH ×2 (09:00→20:10)
[2022-02-17] MEDS: PYRIDOXINE (VIT B6) 50 MG TAB FT SCH (09:00)
[2022-02-17] MEDS: CARBIDOPA/LEVODOPA 25/100 TAB PO SCH ×4 (09:00→20:10)
[2022-02-17] MEDS: APIXABAN 5 MG TABLET PO SCH ×2 (09:00→20:10)
[2022-02-17] MEDS: levETIRAcetam 500 MG/5 ML OSYR FT SCH ×2 (09:00→20:10)
--- NOTE | 2022-02-17 11:24 | P.PN ---
Subjective Date of Service: 02/17/22 Primary Care Provider: Ryan Chief Complaint: Fall, parkinsons Patient has dialysis today No pain from surgical site this morning Review of Systems 10-point ROS is otherwise unremarkable Physical Examination - Vital Signs Temperature: 97.1 F Blood Pressure: 118/68 Pulse: 65 Respirations: 16 Pulse Ox (%): 96 - Physical Exam General: Alert, In no apparent distress HEENT: Atraumatic, PERRLA, EOMI Neck: Supple, JVD not distended Respiratory: Clear to auscultation bilaterally, Normal air movement Cardiovascular: Regular rate/rhythm, Normal S1 S2 Gastrointestinal: Normal bowel sounds, No tenderness Musculoskeletal: No tenderness Integumentary: No rashes Neurological: Normal speech, Normal tone, Normal affect Lymphatics: No axilla or inguinal lymphadenopathy Assessment And Plan - Current Problems (Diagnosis) (1) Parkinsons disease Current Visit: Yes Status: Acute Plan: Patient would like to go home. She may not have been able to assist her caregiver last night. If she does well with PT we can send her home after dialysis 02/17 Patient doing well today She is in dialysis (2) ESRD (end stage renal disease) Current Visit: Yes Status: Acute Plan: Dr. Hanson to manage dialysis (3) Diabetes Current Visit: No Status: Acute Plan: will monitor her with accuchecks. Mild sliding scale. Qualifiers: Diabetes mellitus type: type 2 Diabetes mellitus [facility] insulin use: without [facility] use Diabetes mellitus complication status: without complication Qualified Code(s): E11.9 - Type 2 diabetes mellitus without complications Discharge Plan: LTAC Plan to discharge in: Greater than 2 days - Code Status/Comfort Care Code Status Assessed: No Physician Review: Patient Assessed, Agree with Above Assessment and Plan Critical Care: No Time Spent Managing PTS Care (In Minutes): 25
[2022-02-17] MEDS: TRAZODONE 50 MG TABLET PO SCH (20:10)
[2022-02-17 21:55] VITALS: O2SAT 98
[2022-02-18 05:42] VITALS: BMI 26.2
[2022-02-18] MEDS: NEPRO SHAKE 237 ML CAN PO SCH ×3 (08:39→21:11)
[2022-02-18] MEDS: MULTIVITAMINS,THERAPEUT 1 TAB PO SCH (08:40)
[2022-02-18] MEDS: PYRIDOXINE (VIT B6) 50 MG TAB FT SCH (08:40)
[2022-02-18] MEDS: levETIRAcetam 500 MG/5 ML OSYR FT SCH ×2 (08:40→21:05)
[2022-02-18] MEDS: APIXABAN 5 MG TABLET PO SCH ×2 (08:40→21:05)
[2022-02-18] MEDS: CARBIDOPA/LEVODOPA 25/100 TAB PO SCH ×4 (08:40→21:05)
[2022-02-18] MEDS: TOPIRAMATE 25 MG TAB PO SCH ×2 (08:40→21:05)
--- NOTE | 2022-02-18 09:20 | P.PN ---
Subjective Date of Service: 02/18/22 Primary Care Provider: Ryan Chief Complaint: Fall, parkinsons no complaints this morning Review of Systems 10-point ROS is otherwise unremarkable Physical Examination - Vital Signs Temperature: 98.3 F Blood Pressure: 116/67 Pulse: 76 Respirations: 14 Pulse Ox (%): 98 - Physical Exam General: Alert, In no apparent distress HEENT: Atraumatic, PERRLA, EOMI Neck: Supple, JVD not distended Respiratory: Clear to auscultation bilaterally, Normal air movement Cardiovascular: Regular rate/rhythm, Normal S1 S2 Gastrointestinal: Normal bowel sounds, No tenderness Musculoskeletal: No tenderness Integumentary: No rashes Neurological: Normal speech, Normal tone, Normal affect Lymphatics: No axilla or inguinal lymphadenopathy Assessment And Plan - Current Problems (Diagnosis) (1) Parkinsons disease Current Visit: Yes Status: Acute Plan: Patient would like to go home. She may not have been able to assist her caregiver last night. If she does well with PT we can send her home after dialysis 02/17 Patient doing well today She is in dialysis (2) ESRD (end stage renal disease) Current Visit: Yes Status: Acute Plan: Dr. Hanson to manage dialysis (3) Diabetes Current Visit: No Status: Acute Plan: will monitor her with accuchecks. Mild sliding scale. 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
[2022-02-18] MEDS: HYDROCODONE/APAP 5/325 MG TAB PO PRN (19:14)
[2022-02-18] MEDS: TRAZODONE 50 MG TABLET PO SCH (21:05)
[2022-02-19] MEDS: NEPRO SHAKE 237 ML CAN PO SCH ×3 (09:00→20:54)
[2022-02-19] MEDS: MULTIVITAMINS,THERAPEUT 1 TAB PO SCH (09:00)
[2022-02-19] MEDS: levETIRAcetam 500 MG/5 ML OSYR FT SCH ×2 (09:01→20:52)
[2022-02-19] MEDS: APIXABAN 5 MG TABLET PO SCH ×2 (09:01→20:52)
[2022-02-19] MEDS: TOPIRAMATE 25 MG TAB PO SCH ×2 (09:01→20:53)
[2022-02-19] MEDS: CARBIDOPA/LEVODOPA 25/100 TAB PO SCH ×4 (09:01→20:53)
[2022-02-19] MEDS: PYRIDOXINE (VIT B6) 50 MG TAB FT SCH (09:01)
--- NOTE | 2022-02-19 11:00 | P.PN ---
Subjective Date of Service: 02/19/22 Primary Care Provider: Ryan Chief Complaint: Fall, parkinsons Subjective: No new changes no complaints this morning Review of Systems 10-point ROS is otherwise unremarkable Physical Examination - Vital Signs Temperature: 97.7 F Blood Pressure: 116/63 Pulse: 65 Respirations: 14 Pulse Ox (%): 100 - Physical Exam General: Alert, In no apparent distress HEENT: Atraumatic, PERRLA, EOMI Neck: Supple, JVD not distended Respiratory: Clear to auscultation bilaterally, Normal air movement Cardiovascular: Regular rate/rhythm, Normal S1 S2 Gastrointestinal: Normal bowel sounds, No tenderness Musculoskeletal: No tenderness Integumentary: No rashes Neurological: Normal speech, Normal tone, Normal affect Lymphatics: No axilla or inguinal lymphadenopathy Assessment And Plan - Current Problems (Diagnosis) (1) Parkinsons disease Current Visit: Yes Status: Acute Plan: Patient would like to go home. She may not have been able to assist her caregiver last night. If she does well with PT we can send her home after dialysis 02/17 Patient doing well today She is in dialysis (2) ESRD (end stage renal disease) Current Visit: Yes Status: Acute Plan: Dr. Hanson to manage dialysis (3) Diabetes Current Visit: No Status: Acute Plan: will monitor her with accuchecks. Mild sliding scale. Qualifiers: Diabetes mellitus type: type 2 Diabetes mellitus [facility] insulin use: without [facility] use Diabetes mellitus complication status: without complication Qualified Code(s): E11.9 - Type 2 diabetes mellitus without complications Discharge Plan: Home Plan to discharge in: 24 Hours - Code Status/Comfort Care Code Status Assessed: No Physician Review: Patient Assessed, Agree with Above Assessment and Plan Critical Care: No Time Spent Managing PTS Care (In Minutes): 20
--- NOTE | 2022-02-19 12:38 | P.PN ---
Date of Service: 02/19/22 Vital Signs Temp Pulse Resp BP Pulse Ox 97.4 F 70 14 128/62 98 02/19/22 12:00 02/19/22 12:00 02/19/22 12:00 02/19/22 12:00 02/19/22 12:00 Medications Hydrocodone Bitart/Acetaminophen (Hydrocodone/Apap 5/325 Mg Tab) 1 tab PO Q6H PRN PRN Reason: Pain scale 5-7 (Moderate) Last Admin: 02/18/22 19:14 Dose: 1 tab Apixaban (Apixaban 5 Mg Tablet) 5 mg PO BID [facility] Last Admin: 02/19/22 09:01 Dose: 5 mg Carbidopa/Levodopa (Carbidopa/Levodopa 25/100 Tab) 1 tab PO QID [facility] Last Admin: 02/19/22 12:34 Dose: 1 tab Clonazepam (Clonazepam 1 Mg Tab) 1 mg PO BID PRN PRN Reason: ANXIETY Enteral Nutritional Formula (Nepro Shake 237 Ml Can) 237 ml PO TID [facility] Last Admin: 02/19/22 12:36 Dose: Not Given Ergocalciferol (Drisdol (Vitamin D=Ergocalciferol) 77374 Unit Cap) 50,000 unit PO Q7D@0900 [facility] Heparin Sodium (Porcine) (Heparin 1,000 Unit/Ml Vial) 3,000 unit IV EVERY HD PRN PRN Reason: Prevent Lines Clotting Last Admin: 02/17/22 10:57 Dose: 3,000 unit Heparin Sodium (Porcine) (Heparin 1,000 Unit/Ml Vial) 4,000 unit IV EVERY HD PRN PRN Reason: DIALYSIS CATHETER CARE Last Admin: 02/17/22 14:02 Dose: 4,000 unit Levetiracetam (Levetiracetam 500 Mg/5 Ml [place]) 500 mg FT BID [facility] Stop: 03/16/22 09:01 Last Admin: 02/19/22 09:01 Dose: 500 mg Pyridoxine HCl (Pyridoxine (Vit B6) 50 Mg Tab) 25 mg FT DAILY [facility] Last Admin: 02/19/22 09:01 Dose: 25 mg Topiramate (Topiramate 25 Mg Tab) 50 mg PO BID [facility] Last Admin: 02/19/22 09:01 Dose: 50 mg Trazodone HCl (Trazodone 50 Mg Tablet) 50 mg PO BEDTIME [facility] Last Admin: 02/18/22 21:05 Dose: 50 mg Vitamin B Complex/Vit C/Folic Acid (Multivitamins,Therapeut 1 Tab) 1 tab PO DAILY [facility] Last Admin: 02/19/22 09:00 Dose: Not Given Assessment/ Plan: Nephrology No dyspnea No chest pain Improving weakness No acute events overnight Vitals, medications, blood work and imaging reviewed in the chart. General: In no apparent distress, Oriented x3, Cooperative HEENT: Atraumatic Neck: Supple Respiratory: Clear to auscultation bilaterally Cardiovascular: No edema, Regular rate/rhythm Gastrointestinal: Soft and benign, Non-distended Musculoskeletal: No clubbing, No contractures Integumentary: No rashes, No cyanosis Neurological: Abnormal speech Blood work reviewed in the chart. Imagings Data: EXAM DESCRIPTION: RAD - Chest Single View - 02/13/2022 4:32 pm CLINICAL HISTORY: weakness Chest pain. COMPARISON: Chest Single View dated 02/10/2022; Chest Single View dated 09/30/2021; Chest Single View dated 08/10/2021; Abdomen 1 View (KUB) dated 08/06/2020 FINDINGS: Portable technique limits examination quality. The lungs are grossly clear. The heart is normal in size. No displaced fractures.Right-sided venous catheter its tip in the right atrium. IMPRESSION: No acute intrathoracic process suspected. Conclusions/Impression: ESRD -HD TIW -PD cath removed by Dr. Decker Hypokalemia -Replete potassium prn -HD with 4K bath HTN with CKD/ CHF -Monitor BP Diastolic CHF, chronic -HD with UF -Low sodium diet -Daily weight Moderate malnutrition/ Hypoalbuminemia Decreased functional ability with anorexia -Continue Nepro & MVI Anemia in CKD -Retacrit prn CKD MBD -Continue Ergocalciferol Frailty/ Debility in the setting of Parkinsons Ds -Evaluate for Rehab
[2022-02-19] MEDS: TRAZODONE 50 MG TABLET PO SCH (20:52)
[2022-02-19] MEDS: HYDROCODONE/APAP 5/325 MG TAB PO PRN (20:52)
[2022-02-20 04:03] LABS: Absolute Lymphocytes (CBC) 2.3 K/uL (0.7-4.9); Hematocrit 28.1 % (36.0-45.0); Lymphocytes % 44.3 % (15.3-44.8); MCV 104.5 fL (80-100); MPV 7.9 fL (7.6-11.3); RBC Red Blood Cell Count 2.69 M/uL (3.86-4.86)
[2022-02-20 04:21] LABS: Albumin 2.3 g/dL (3.4-5.0); Alkaline Phosphatase 124 U/L (45-117); BUN Blood Urea Nitrogen 55 mg/dL (7-18); Bicarbonate 25 mmol/L (21-32); Bilirubin Total 0.3 mg/dL (0.2-1.0); Glomerular Filtration Rate 4 ml/min (=/>90); Glucose Level 107 mg/dL (74-106); Phosphorus 3.5 mg/dL (2.5-4.9); Prealbumin 22.7 mg/dL (20-40); Sodium Level 138 mmol/L (136-145)
[2022-02-20 04:22] LABS: Potassium 4.5 mmol/L (3.5-5.1)
[2022-02-20 04:23] LABS: ALT/SGPT < 10 U/L (12-78); AST/SGOT 24 U/L (15-37); Magnesium 2.8 mg/dL (1.8-2.4)
[2022-02-20 05:09] LABS: Blood Morphology Comment NOT SEEN (NOT SEEN); Platelet Estimate ADEQ
[2022-02-20] MEDS: MULTIVITAMINS,THERAPEUT 1 TAB PO SCH (08:32)
[2022-02-20] MEDS: APIXABAN 5 MG TABLET PO SCH ×2 (08:32→21:00)
[2022-02-20] MEDS: levETIRAcetam 500 MG/5 ML OSYR FT SCH ×2 (08:32→21:36)
[2022-02-20] MEDS: TOPIRAMATE 25 MG TAB PO SCH ×2 (08:32→21:36)
[2022-02-20] MEDS: PYRIDOXINE (VIT B6) 50 MG TAB FT SCH (08:32)
[2022-02-20] MEDS: CARBIDOPA/LEVODOPA 25/100 TAB PO SCH ×4 (08:32→21:36)
[2022-02-20] MEDS: NEPRO SHAKE 237 ML CAN PO SCH ×3 (08:35→21:00)
--- NOTE | 2022-02-20 08:35 | P.PN ---
Subjective Date of Service: 02/19/22 Primary Care Provider: Ryan Chief Complaint: Fall, parkinsons Subjective: Improving (Getting HD via tunnelled HD catheter without issues) Physical Examination - Vital Signs Temperature: 97.1 F Blood Pressure: 145/72 Pulse: 73 Respirations: 18 Pulse Ox (%): 95 - Physical Exam General: Alert, In no apparent distress, Cooperative Neck: Other (HD catheter in place) Integumentary: Other (LEFT femoral HD catheter in place) Neurological: Normal speech Assessment And Plan - Current Problems (Diagnosis) (1) ESRD (end stage renal disease) Current Visit: Yes Status: Acute Plan: Temporary LEFT femoral HD catheter removed @ bedside - no bleeding - continue using tunnelled HD catheter, will sign off for now, call for any future needs Physician Review: Patient Assessed, Agree with Above Assessment and Plan
--- NOTE | 2022-02-20 08:38 | P.PN ---
Subjective Date of Service: 02/19/22 Primary Care Provider: Ryan Chief Complaint: Fall, parkinsons Subjective: Improving (no pain,) Physical Examination - Vital Signs Temperature: 97.1 F Blood Pressure: 145/72 Pulse: 73 Respirations: 18 Pulse Ox (%): 95 - Physical Exam General: Alert, In no apparent distress, Cooperative Gastrointestinal: Soft and benign (pablo in place, clean and dry, no infection or drainage) Assessment And Plan - Current Problems (Diagnosis) (1) ESRD (end stage renal disease) Current Visit: Yes Status: Acute Plan: - continue routine post op care - will sign off for now Physician Review: Patient Assessed, Agree with Above Assessment and Plan
--- NOTE | 2022-02-20 10:29 | P.PN ---
Subjective Date of Service: 02/20/22 Primary Care Provider: Ryan Chief Complaint: Fall, parkinsons Subjective: No new changes no complaints this morning Review of Systems 10-point ROS is otherwise unremarkable General: Weakness Physical Examination - Vital Signs Temperature: 97.1 F Blood Pressure: 145/72 Pulse: 73 Respirations: 18 Pulse Ox (%): 95 - Physical Exam General: Alert, In no apparent distress HEENT: Atraumatic, PERRLA, EOMI Neck: Supple, JVD not distended Respiratory: Clear to auscultation bilaterally, Normal air movement Cardiovascular: Regular rate/rhythm, Normal S1 S2 Gastrointestinal: Normal bowel sounds, No tenderness Musculoskeletal: No tenderness Integumentary: No rashes Neurological: Normal speech, Normal tone, Normal affect Lymphatics: No axilla or inguinal lymphadenopathy Assessment And Plan - Current Problems (Diagnosis) (1) Parkinsons disease Current Visit: Yes Status: Acute Plan: Patient would like to go home. She may not have been able to assist her caregiver last night. If she does well with PT we can send her home after dialysis 02/17 Patient doing well today She is in dialysis (2) ESRD (end stage renal disease) Current Visit: Yes Status: Acute Plan: Dr. Hanson to manage dialysis (3) Diabetes Current Visit: No Status: Acute Plan: will monitor her with accuchecks. Mild sliding scale. 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 Not able to transfer without assistance. Will work on getting her to inpatient Qualifiers: Protein-calorie malnutrition severity: severe Qualified Code(s): E43 - Unspecified severe protein-calorie malnutrition Discharge Plan: LTAC Plan to discharge in: 48 Hours - Code Status/Comfort Care Code Status Assessed: No Physician Review: Patient Assessed, Agree with Above Assessment and Plan Critical Care: No Time Spent Managing PTS Care (In Minutes): 20
--- NOTE | 2022-02-20 10:52 | P.PN ---
Date of Service: 02/20/22 Vital Signs Temp Pulse Resp BP Pulse Ox 97.1 F 73 18 145/72 H 95 02/20/22 10:29 02/20/22 10:29 02/20/22 10:29 02/20/22 10:29 02/20/22 10:29 Medications Hydrocodone Bitart/Acetaminophen (Hydrocodone/Apap 5/325 Mg Tab) 1 tab PO Q6H PRN PRN Reason: Pain scale 5-7 (Moderate) Last Admin: 02/19/22 20:52 Dose: 1 tab Apixaban (Apixaban 5 Mg Tablet) 5 mg PO BID [facility] Last Admin: 02/20/22 08:32 Dose: 5 mg Carbidopa/Levodopa (Carbidopa/Levodopa 25/100 Tab) 1 tab PO QID [facility] Last Admin: 02/20/22 08:32 Dose: 1 tab Clonazepam (Clonazepam 1 Mg Tab) 1 mg PO BID PRN PRN Reason: ANXIETY Enteral Nutritional Formula (Nepro Shake 237 Ml Can) 237 ml PO TID [facility] Last Admin: 02/20/22 08:35 Dose: 237 ml Ergocalciferol (Drisdol (Vitamin D=Ergocalciferol) 88737 Unit Cap) 50,000 unit PO Q7D@0900 [facility] Heparin Sodium (Porcine) (Heparin 1,000 Unit/Ml Vial) 3,000 unit IV EVERY HD PRN PRN Reason: Prevent Lines Clotting Last Admin: 02/17/22 10:57 Dose: 3,000 unit Heparin Sodium (Porcine) (Heparin 1,000 Unit/Ml Vial) 4,000 unit IV EVERY HD PRN PRN Reason: DIALYSIS CATHETER CARE Last Admin: 02/17/22 14:02 Dose: 4,000 unit Levetiracetam (Levetiracetam 500 Mg/5 Ml Osyr) 500 mg FT BID [facility] Stop: 03/16/22 09:01 Last Admin: 02/20/22 08:32 Dose: 500 mg Pyridoxine HCl (Pyridoxine (Vit B6) 50 Mg Tab) 25 mg FT DAILY [facility] Last Admin: 02/20/22 08:32 Dose: 25 mg Topiramate (Topiramate 25 Mg Tab) 50 mg PO BID [facility] Last Admin: 02/20/22 08:32 Dose: 50 mg Trazodone HCl (Trazodone 50 Mg Tablet) 50 mg PO BEDTIME [facility] Last Admin: 02/19/22 20:52 Dose: 50 mg Vitamin B Complex/Vit C/Folic Acid (Multivitamins,Therapeut 1 Tab) 1 tab PO DAILY [facility] Last Admin: 02/20/22 08:32 Dose: 1 tab Assessment/ Plan: Nephrology No dyspnea No chest pain She feels like she needs more PT because she is getting weaker laying in bed No acute events overnight Vitals, medications, blood work and imaging reviewed in the chart. General: In no apparent distress, Oriented x3, Cooperative HEENT: Atraumatic Neck: Supple Respiratory: Clear to auscultation bilaterally Cardiovascular: No edema, Regular rate/rhythm Gastrointestinal: Soft and benign, Non-distended Musculoskeletal: No clubbing, No contractures Integumentary: No rashes, No cyanosis Neurological: Abnormal speech Blood work reviewed in the chart. Imagings Data: EXAM DESCRIPTION: RAD - Chest Single View - 02/13/2022 4:32 pm CLINICAL HISTORY: weakness Chest pain. COMPARISON: Chest Single View dated 02/10/2022; Chest Single View dated 09/30/2021; Chest Single View dated 08/10/2021; Abdomen 1 View (KUB) dated 08/06/2020 FINDINGS: Portable technique limits examination quality. The lungs are grossly clear. The heart is normal in size. No displaced fractures.Right-sided venous catheter its tip in the right atrium. IMPRESSION: No acute intrathoracic process suspected. Conclusions/Impression: ESRD -HD TIW -Seen and examined on HD -PD cath removed by Dr. Decker Hypokalemia -Replete potassium prn -HD with 4K bath HTN with CKD/ CHF -Monitor BP Diastolic CHF, chronic -HD with UF -Low sodium diet -Daily weight Moderate malnutrition/ Hypoalbuminemia Decreased functional ability with anorexia -Continue Nepro & MVI Anemia in CKD -Retacrit TIW CKD MBD -Continue Ergocalciferol Frailty/ Debility in the setting of Parkinsons Ds -Evaluate for Rehab
[2022-02-20] MEDS: EPOETIN ALFA 10,000 UNIT/ML VIAL SQ SCH (20:00)
[2022-02-20] MEDS: HYDROCODONE/APAP 5/325 MG TAB PO PRN (21:35)
[2022-02-20] MEDS: TRAZODONE 50 MG TABLET PO SCH (21:36)
--- NOTE | 2022-02-21 07:52 | P.PN ---
Subjective Date of Service: 02/21/22 Primary Care Provider: Ryan Chief Complaint: Fall, parkinsons no complaints this morning Review of Systems 10-point ROS is otherwise unremarkable General: Weakness Physical Examination - Vital Signs Temperature: 97.8 F Blood Pressure: 109/60 Pulse: 79 Respirations: 16 Pulse Ox (%): 99 - Physical Exam General: Alert, In no apparent distress HEENT: Atraumatic, PERRLA, EOMI Neck: Supple, JVD not distended Respiratory: Clear to auscultation bilaterally, Normal air movement Cardiovascular: Regular rate/rhythm, Normal S1 S2 Gastrointestinal: Normal bowel sounds, No tenderness Musculoskeletal: No tenderness Integumentary: No rashes Neurological: Normal speech, Normal tone, Normal affect Lymphatics: No axilla or inguinal lymphadenopathy Assessment And Plan - Current Problems (Diagnosis) (1) Unspecified protein-calorie malnutrition Current Visit: Yes Status: Acute Plan: Patient is unable to walk more than 10 steps with assistance. Not able to transfer without assistance. Will work on getting her to inpatient 02/21 Patient was approved for SNF. She wants to go to [facility]. The family is appealing. Will see if she is appropriate for the PT center on the 5th floor Qualifiers: Protein-calorie malnutrition severity: severe Qualified Code(s): E43 - Unspecified severe protein-calorie malnutrition (2) Parkinsons disease Current Visit: Yes Status: Acute Plan: Patient would like to go home. She may not have been able to assist her caregiver last night. If she does well with PT we can send her home after dialysis 02/17 Patient doing well today She is in dialysis (3) ESRD (end stage renal disease) Current Visit: Yes Status: Acute Plan: Dr. Hanson to manage dialysis (4) Diabetes Current Visit: No Status: Acute Plan: will monitor her with accuchecks. Mild sliding scale. Qualifiers: Diabetes mellitus type: type 2 Diabetes mellitus [facility] insulin use: without intermediate school teacher use Diabetes mellitus complication status: without complication Qualified Code(s): E11.9 - Type 2 diabetes mellitus without complications Discharge Plan: LTAC Plan to discharge in: 48 Hours - Code Status/Comfort Care Code Status Assessed: No Physician Review: Patient Assessed, Agree with Above Assessment and Plan Critical Care: No Time Spent Managing PTS Care (In Minutes): 20
[2022-02-21] MEDS ORDERED: DRISDOL (VITAMIN D=ERGOCALCIFEROL) 50000 UNIT CAP PO SCH (09:00)
[2022-02-21] MEDS: TOPIRAMATE 25 MG TAB PO SCH ×3 (09:41→20:01)
[2022-02-21] MEDS: CARBIDOPA/LEVODOPA 25/100 TAB PO SCH ×4 (09:42→19:57)
[2022-02-21] MEDS: levETIRAcetam 500 MG/5 ML OSYR FT SCH ×2 (09:42→19:57)
[2022-02-21] MEDS: PYRIDOXINE (VIT B6) 50 MG TAB FT SCH (09:42)
[2022-02-21] MEDS: MULTIVITAMINS,THERAPEUT 1 TAB PO SCH (09:42)
[2022-02-21] MEDS: APIXABAN 5 MG TABLET PO SCH ×2 (09:42→19:48)
[2022-02-21] MEDS: NEPRO SHAKE 237 ML CAN PO SCH ×3 (09:43→19:58)
--- NOTE | 2022-02-21 13:03 | CON ---
History Of Present Illness: Admitted on 02/13/2022 for procedure to have a peritoneal dialysis shaan ter replacement by Dr. Decker. The patient has a history of diabetes, hypertension, end-stage renal disease, on peritoneal dialysis, dyslipidemia, and parkinsonism. Has had no cardiac symptoms. Dimitry ed chest pain, nausea, vomiting, diaphoresis, PND, orthopnea, pedal edema, palpitations, or syncope. EKG shows old anterior OK probably secondary to body habitus. Hemoglobin was 9.4, creatinine was 9. 4. Allergies: SHE IS ALLERGIC TO CRAWFISH. Review of Systems: Negative. Social History: Negative. Family History: Negative. Medications: At home include Eliquis, Sinemet, metoprolol, Pravachol, Topamax, and hydralazine. Physical Examination: Vital Signs: Stable, afebrile, sinus rhythm. HEENT: Negative. Neck: Supple with no bruit. Chest: Clear. Cardiac: Revealed a regular rhythm and rate. No murmurs, gallops, or rubs. Abdomen: Benign. Extremities: Revealed no clubbing, cyanosis, or edema. Diagnostic Data: As stated earlier. Impression And Plan: The patient with diabetes, hypertension, dyslipidemia, peritoneal dialysis, par oxysmal atrial fibrillation, on Eliquis. She is well controlled. As far as all her medical problems , she also has parkinsonism. Has mild anemia. EKG is fairly unremarkable. Chest x-ray is unremarka ble. No cardiac symptoms. No evidence of congestive heart failure or coronary artery disease by phy sical examination. I think she is at low risk for perioperative mortality I will be avail able for questions. JANAE/JYOTI Voice ID: [id number] Report ID: [id number]
[2022-02-21] MEDS: TRAZODONE 50 MG TABLET PO SCH (19:48)
--- NOTE | 2022-02-21 19:53 | P.PN ---
Date of Service: 02/21/22 Vital Signs Temp Pulse Resp BP Pulse Ox 97.6 F 76 16 115/64 96 02/21/22 15:57 02/21/22 15:57 02/21/22 15:57 02/21/22 15:57 02/21/22 15:57 Medications Apixaban (Apixaban 5 Mg Tablet) 5 mg PO BID [facility] Last Admin: 02/21/22 09:42 Dose: 5 mg Carbidopa/Levodopa (Carbidopa/Levodopa 25/100 Tab) 1 tab PO QID [facility] Last Admin: 02/21/22 17:27 Dose: 1 tab Clonazepam (Clonazepam 1 Mg Tab) 1 mg PO BID PRN PRN Reason: ANXIETY Enteral Nutritional Formula (Nepro Shake 237 Ml Can) 237 ml PO TID [facility] Last Admin: 02/21/22 13:09 Dose: 237 ml Epoetin Thierno (Epoetin Thierno 10,000 Unit/Ml Vial) 10,000 unit SQ M,W,F [facility] Last Admin: 02/20/22 20:00 Dose: Not Given Ergocalciferol (Drisdol (Vitamin D=Ergocalciferol) 25529 Unit Cap) 50,000 unit PO Q7D@0900 [facility] Last Admin: 02/21/22 09:42 Dose: 50,000 unit Heparin Sodium (Porcine) (Heparin 1,000 Unit/Ml Vial) 3,000 unit IV EVERY HD PRN PRN Reason: Prevent Lines Clotting Last Admin: 02/20/22 09:31 Dose: 3,000 unit Heparin Sodium (Porcine) (Heparin 1,000 Unit/Ml Vial) 4,000 unit IV EVERY HD PRN PRN Reason: DIALYSIS CATHETER CARE Last Admin: 02/20/22 12:36 Dose: 4,000 unit Levetiracetam (Levetiracetam 500 Mg/5 Ml Osyr) 500 mg FT BID [facility] Stop: 03/16/22 09:01 Last Admin: 02/21/22 09:42 Dose: 500 mg Pyridoxine HCl (Pyridoxine (Vit B6) 50 Mg Tab) 25 mg FT DAILY [facility] Last Admin: 02/21/22 09:42 Dose: 25 mg Topiramate (Topiramate 25 Mg Tab) 50 mg PO BID [facility] Last Admin: 02/21/22 09:41 Dose: 50 mg Trazodone HCl (Trazodone 50 Mg Tablet) 50 mg PO BEDTIME [facility] Last Admin: 02/20/22 21:36 Dose: 50 mg Vitamin B Complex/Vit C/Folic Acid (Multivitamins,Therapeut 1 Tab) 1 tab PO DAILY [facility] Last Admin: 02/21/22 09:42 Dose: 1 tab Assessment/ Plan: Nephrology No dyspnea No chest pain Weakness No acute events overnight Vitals, medications, blood work and imaging reviewed in the chart. General: In no apparent distress, Oriented x3, Cooperative HEENT: Atraumatic Neck: Supple Respiratory: Clear to auscultation bilaterally Cardiovascular: No edema, Regular rate/rhythm Gastrointestinal: Soft and benign, Non-distended Musculoskeletal: No clubbing, No contractures Integumentary: No rashes, No cyanosis Neurological: Abnormal speech Blood work reviewed in the chart. Imagings Data: EXAM DESCRIPTION: RAD - Chest Single View - 02/13/2022 4:32 pm CLINICAL HISTORY: weakness Chest pain. COMPARISON: Chest Single View dated 02/10/2022; Chest Single View dated 09/30/2021; Chest Single View dated 08/10/2021; Abdomen 1 View (KUB) dated 08/06/2020 FINDINGS: Portable technique limits examination quality. The lungs are grossly clear. The heart is normal in size. No displaced fractures.Right-sided venous catheter its tip in the right atrium. IMPRESSION: No acute intrathoracic process suspected. Conclusions/Impression: ESRD -HD TIW Hypokalemia -Replete potassium prn HTN with CKD/ CHF -Monitor BP Diastolic CHF, chronic -HD with UF -Low sodium diet -Daily weight Moderate malnutrition/ Hypoalbuminemia Decreased functional ability with anorexia -Continue Nepro & MVI -PT as tolerated Anemia in CKD -Retacrit TIW CKD MBD -Continue Ergocalciferol Frailty/ Debility in the setting of Parkinsons Ds -Evaluate for Rehab -PT as tolerated
[2022-02-21] MEDS: DOCUSATE NA 100 MG CAP PO PRN (20:35)
[2022-02-22 05:48] LABS: Absolute Lymphocytes (CBC) 3.1 K/uL (0.7-4.9); Hematocrit 29.4 % (36.0-45.0); Lymphocytes % 49.7 % (15.3-44.8); MCV 104.2 fL (80-100); MPV 7.4 fL (7.6-11.3); RBC Red Blood Cell Count 2.82 M/uL (3.86-4.86)
[2022-02-22 06:09] LABS: AST/SGOT 21 U/L (15-37); Albumin 2.5 g/dL (3.4-5.0); Alkaline Phosphatase 134 U/L (45-117); BUN Blood Urea Nitrogen 51 mg/dL (7-18); Bicarbonate 27 mmol/L (21-32); Bilirubin Total 0.4 mg/dL (0.2-1.0); Glomerular Filtration Rate 5 ml/min (=/>90); Glucose Level 97 mg/dL (74-106); Potassium 4.2 mmol/L (3.5-5.1); Protein, Total 6.3 g/dL (6.4-8.2); Sodium Level 134 mmol/L (136-145)
[2022-02-22 06:10] LABS: ALT/SGPT < 10 U/L (12-78)
--- NOTE | 2022-02-22 08:03 | P.PN ---
Subjective Date of Service: 02/22/22 Primary Care Provider: Ryan Chief Complaint: Fall, parkinsons Patient refuses snf facility Review of Systems 10-point ROS is otherwise unremarkable Physical Examination - Vital Signs Temperature: 97.7 F Blood Pressure: 108/59 Pulse: 70 Respirations: 16 Pulse Ox (%): 99 - Physical Exam General: Alert, In no apparent distress HEENT: Atraumatic, PERRLA, EOMI Neck: Supple, JVD not distended Respiratory: Clear to auscultation bilaterally, Normal air movement Cardiovascular: Regular rate/rhythm, Normal S1 S2 Gastrointestinal: Normal bowel sounds, No tenderness Musculoskeletal: No tenderness Integumentary: No rashes Neurological: Normal speech, Normal tone, Normal affect Lymphatics: No axilla or inguinal lymphadenopathy Assessment And Plan - Current Problems (Diagnosis) (1) Unspecified protein-calorie malnutrition Current Visit: Yes Status: Acute Plan: Patient is unable to walk more than 10 steps with assistance. Not able to transfer without assistance. Will work on getting her to inpatient 02/22 patient stages if she is not accepted by the [facility]th floor or [facility] she will go home Qualifiers: Protein-calorie malnutrition severity: severe Qualified Code(s): E43 - Unspecified severe protein-calorie malnutrition (2) Parkinsons disease Current Visit: Yes Status: Acute Plan: Patient would like to go home. She may not have been able to assist her caregiver last night. If she does well with PT we can send her home after dialysis 02/17 Patient doing well today She is in dialysis (3) ESRD (end stage renal disease) Current Visit: Yes Status: Acute Plan: Dr. Hanson to manage dialysis (4) Diabetes Current Visit: No Status: Acute Plan: will monitor her with accuchecks. Mild sliding scale. Qualifiers: Diabetes mellitus type: type 2 Diabetes mellitus prison insulin use: without intermediate manager use Diabetes mellitus complication status: without complication Qualified Code(s): E11.9 - Type 2 diabetes mellitus without complications Physician Review: Patient Assessed, Agree with Above Assessment and Plan
[2022-02-22] MEDS: levETIRAcetam 500 MG/5 ML OSYR FT SCH ×2 (08:34→20:19)
[2022-02-22] MEDS: APIXABAN 5 MG TABLET PO SCH ×2 (08:34→20:19)
[2022-02-22] MEDS: PYRIDOXINE (VIT B6) 50 MG TAB FT SCH (08:35)
[2022-02-22] MEDS: NEPRO SHAKE 237 ML CAN PO SCH ×3 (08:35→20:20)
[2022-02-22] MEDS: MULTIVITAMINS,THERAPEUT 1 TAB PO SCH (08:38)
[2022-02-22] MEDS: DOCUSATE NA 100 MG CAP PO PRN (08:38)
[2022-02-22] MEDS: CARBIDOPA/LEVODOPA 25/100 TAB PO SCH ×4 (08:38→20:19)
[2022-02-22] MEDS: TOPIRAMATE 25 MG TAB PO SCH ×2 (08:39→20:19)
--- NOTE | 2022-02-22 13:33 | P.PN ---
Nephrology note: (S) Pt seen on HD, tolerating session General: Lethargic but NAD HEENT: Atraumatic, sclera anicteric, NC Neck: Supple, Rt IJ TDC Respiratory: b/l air entry, no rhonchi Cardiovascular: No edema, Regular rate/rhythm Gastrointestinal: Soft, ND, NT Musculoskeletal: No clubbing, No contractures Integumentary: No rashes, No cyanosis Neurological: Awake, alert, generalized weakness Conclusions/Impression: ESRD -HD today, see orders for details Chronic HTN with relative hypotension at times -Monitor BP off scheduled anti hypertensives Generalized weakness, hx of Parkinson's disease -Would benefit from continued OT/PT, needs to f/u with Neurology after discharge Ruben Roman MD, PAWANN
[2022-02-22] MEDS: EPOETIN ALFA 10,000 UNIT/ML VIAL SQ SCH (17:08)
[2022-02-22] MEDS: TRAZODONE 50 MG TABLET PO SCH (20:19)
[2022-02-22] MEDS: ROTIGOTINE 6 MG/24 HR PO SCH (20:19)
[2022-02-23] MEDS: ROTIGOTINE 6 MG/24 HR PO SCH (09:00)
[2022-02-23] MEDS: CARBIDOPA/LEVODOPA 25/100 TAB PO SCH (09:00)
[2022-02-23] MEDS: NEPRO SHAKE 237 ML CAN PO SCH (09:00)
[2022-02-23] MEDS: TOPIRAMATE 25 MG TAB PO SCH (09:24)
[2022-02-23] MEDS: APIXABAN 5 MG TABLET PO SCH (09:24)
[2022-02-23] MEDS: levETIRAcetam 500 MG/5 ML OSYR FT SCH (09:25)
[2022-02-23] MEDS: MULTIVITAMINS,THERAPEUT 1 TAB PO SCH (09:25)
[2022-02-23] MEDS: PYRIDOXINE (VIT B6) 50 MG TAB FT SCH (09:25)
[2022-02-23 12:36] VITALS: BP 99/56; TEMP 98
--- NOTE | 2022-02-23 12:54 | P.DS ---
Admission Date: 02/13/22 Discharge Date: 02/23/22 Primary Care Provider: Ryan Disposition: ROUTINE DISCHARGE Discharge Condition: SERIOUS Reason for Admission: Fall, parkinsons - Problems (1) Unspecified protein-calorie malnutrition Current Visit: Yes Status: Acute Qualifiers: Protein-calorie malnutrition severity: severe Qualified Code(s): E43 - Unspecified severe protein-calorie malnutrition (2) Parkinsons disease Current Visit: Yes Status: Acute (3) ESRD (end stage renal disease) Current Visit: Yes Status: Acute (4) Diabetes Current Visit: No Status: Acute Qualifiers: Diabetes mellitus type: type 2 Diabetes mellitus assisted insulin use: without assisted use Diabetes mellitus complication status: without complication Qualified Code(s): E11.9 - Type 2 diabetes mellitus without complications Brief History of Present Illness: Patient is an office patient of [employer]. History of Parkinsons and esrd (TTS with Dr. Hanson). She was found half in and half out of her bed by her caregiver. EMS was called. this is per the patient. She denies falling. She was having difficulty standing in the ER and was admitted for observation. The patient's baseline is to be able to stand and walk a few steps. She can transfer Needs assistance. She is currently standing with PT when I entered the room. She has no complaints of fevers, chills, sob, chestpain or cough. She was recently stopped on her beta blockers and htn medications by Dr. Hanson. This was due to hypotension during dialysis I agree with that plan of care Hospital Course: Patient was admitted for weakness. The patient had a dialysis with Dr. Gonzalez. She was not able to walk more than a few steps with PT. Requested [facility] . The patient was admitted Vital Signs/Physical Exam: Temp Pulse Resp BP Pulse Ox 98.0 F 83 16 99/56 L 99 02/23/22 12:00 02/23/22 12:00 02/23/22 12:00 02/23/22 12:00 02/23/22 12:00 General: Alert, In no apparent distress HEENT: Atraumatic, PERRLA, EOMI Neck: Supple, JVD not distended Respiratory: Clear to auscultation bilaterally, Normal air movement Cardiovascular: Regular rate/rhythm, Normal S1 S2 Gastrointestinal: Normal bowel sounds, No tenderness Musculoskeletal: No tenderness Integumentary: No rashes Neurological: Normal speech, Normal tone, Normal affect Lymphatics: No axilla or inguinal lymphadenopathy Laboratory Data at Discharge: WBC 6.30 K/uL (4.3-10.9) 02/22/22 05:24 Hgb 10.1 g/dL (12.0-15.0) L 02/22/22 05:24 Hct 29.4 % (36.0-45.0) L 02/22/22 05:24 Plt Count 456 K/uL (152-406) H 02/22/22 05:24 Sodium 134 mmol/L (136-145) L 02/22/22 05:24 Potassium 4.2 mmol/L (3.5-5.1) 02/22/22 05:24 BUN 51 mg/dL (7-18) H 02/22/22 05:24 Creatinine 8.28 mg/dL (0.55-1.3) H* 02/22/22 05:24 Glucose 97 mg/dL (74-106) 02/22/22 05:24 Phosphorus 3.5 mg/dL (2.5-4.9) 02/20/22 03:20 Magnesium 2.8 mg/dL (1.8-2.4) H 02/20/22 03:20 Total Bilirubin 0.4 mg/dL (0.2-1.0) 02/22/22 05:24 AST 21 U/L (15-37) 02/22/22 05:24 ALT < 10 U/L (12-78) L 02/22/22 05:24 Alkaline Phosphatase 134 U/L (45-117) H 02/22/22 05:24 Triglycerides 188 mg/dL (<150) H 02/14/22 06:30 Cholesterol 163 mg/dL (<200) 02/14/22 06:30 HDL Cholesterol 27 mg/dL (40-60) L 02/14/22 06:30 Cholesterol/HDL Ratio 6.04 02/14/22 06:30 Home Medications: Apixaban [Eliquis *] 5 mg PO BID 10/01/21 Carbidopa/Levodopa [Carbidopa-Levodopa 25-100 Tab] 2 tab FT TID 10/01/21 Levetiracetam [Roweepra] 500 mg PO SEECOM 10/01/21 Metoprolol Tartrate 100 mg PO BID 10/01/21 Pravastatin [Pravachol*] 20 mg FT BEDTIME 10/01/21 Rotigotine [Neupro] 1 patch TD DAILY 10/01/21 Topiramate 50 mg PO Q12H 10/01/21 Valproic Acid (As Sodium Salt) [Valproic Acid] 20 ml FT TID 10/01/21 Amlodipine [Norvasc*] 1 tab PO DAILY 02/23/22 Spironolactone 25 mg PO DAILY 02/23/22 Trazodone [Desyrel*] 25 mg PO BEDTIME 02/23/22 Physician Discharge Instructions: - remove pablo 10-14 days after procedure date Diet: ADA Activity: Fall precautions (No lifting over 10 lbs) Followup: Hernesto Davis MD [Primary Care Provider] - (Please call and schedule appointment in 1-2 weeks) Riki Decker MD [ACTIVE - CAN ADMIT] - Time spent managing pt's care (in minutes): 40
--- NOTE | 2022-02-23 20:59 | P.PN ---
Date of Service: 02/23/22 Vital Signs Temp Pulse Resp BP Pulse Ox 98.0 F 83 16 99/56 L 99 02/23/22 12:00 02/23/22 12:00 02/23/22 12:00 02/23/22 12:00 02/23/22 12:00 Assessment/ Plan: Nephrology No dyspnea No chest pain Waxing and waning weakness No acute events overnight Vitals, medications, blood work and imaging reviewed in the chart. General: In no apparent distress, Oriented x3, Cooperative HEENT: Atraumatic Neck: Supple Respiratory: Clear to auscultation bilaterally Cardiovascular: No edema, Regular rate/rhythm Gastrointestinal: Soft and benign, Non-distended Musculoskeletal: No clubbing, No contractures Integumentary: No rashes, No cyanosis Neurological: Abnormal speech Blood work reviewed in the chart. Imagings Data: EXAM DESCRIPTION: RAD - Chest Single View - 02/13/2022 4:32 pm CLINICAL HISTORY: weakness Chest pain. COMPARISON: Chest Single View dated 02/10/2022; Chest Single View dated 09/30/2021; Chest Single View dated 08/10/2021; Abdomen 1 View (KUB) dated 08/06/2020 FINDINGS: Portable technique limits examination quality. The lungs are grossly clear. The heart is normal in size. No displaced fractures.Right-sided venous catheter its tip in the right atrium. IMPRESSION: No acute intrathoracic process suspected. Conclusions/Impression: ESRD -HD TIW Hypokalemia -Replete potassium prn HTN with CKD/ CHF -Monitor BP Diastolic CHF, chronic -HD with UF -Low sodium diet -Daily weight Moderate malnutrition/ Hypoalbuminemia Decreased functional ability with anorexia -Continue Nepro & MVI -PT as tolerated Anemia in CKD -Retacrit TIW CKD MBD -Continue Ergocalciferol Frailty/ Debility in the setting of Parkinsons Ds -Evaluate for Rehab -PT as tolerated
== END 2022-02-23 14:30 ==
LOC: ER 15:00 → INTOOBSV 18:45 → ERHOLD 18:45 → 2ND 20:26
PROVIDERS: ADMIT Internal Medicine; ATTEND Internal Medicine
PROC: 0WPG03Z Removal of Infusion Device from Peritoneal Cavity, Open Approach (ICD-10-PCS; principal; 2022-02-15 09:45)
DX: E43 Unspecified severe protein-calorie malnutrition (principal); G20 Parkinson's disease; E11.22 Type 2 diabetes mellitus with diabetic chronic kidney disease; N18.6 End stage renal disease; T82.41XA Breakdown (mechanical) of vascular dialysis catheter, initial encounter; E87.6 Hypokalemia; I12.0 Hypertensive chronic kidney disease with stage 5 chronic kidney disease or end stage renal disease; I50.32 Chronic diastolic (congestive) heart failure; E78.5 Hyperlipidemia, unspecified; E88.09 Other disorders of plasma-protein metabolism, not elsewhere classified; D63.1 Anemia in chronic kidney disease; I48.0 Paroxysmal atrial fibrillation; R56.9 Unspecified convulsions; G47.30 Sleep apnea, unspecified; Z82.49 Family history of ischemic heart disease and other diseases of the circulatory system; Z99.2 Dependence on renal dialysis; Z79.4 Long term (current) use of insulin; Z79.01 Long term (current) use of anticoagulants; Z45.2 Encounter for adjustment and management of vascular access device; Z80.9 Family history of malignant neoplasm, unspecified; Z68.26 Body mass index [BMI] 26.0-26.9, adult; Z20.822 Contact with and (suspected) exposure to COVID-19
CPT/HCPCS: 96361; 93005 ×2; 85025 ×6; 36415 ×5; 83735 ×2; 82550; 84100; 85044; 80061; 82947 ×35; 88300; 84443; 84484; 84439; 84134 ×2; 80053 ×6; 71045; 90935 ×6; 97110 ×4; 97116 ×6; 97161; 97530 ×3; 96360; 99285; 87811; 49422; J2704; J2001; J2250 ×2; J3010; J1170; J1644 ×8; Q5106; G0378 ×14; J7040 ×2; J2405; J0690

== ENCOUNTER 2022-03-21 09:38 | Inpatient (IN) | payer OTHER ==
--- OUTSIDE RECORDS SUMMARY | 2022-03-21 10:06 | XMS REPORT | Continuity of Care Document ---
:1965 Author Organization [facility] t Address [address] [place] [address] Care Team Providers Name Role Phone Jose Rey DO Primary Care Physician [phone] Royce Jay Anavella Attending Clinician Unava ilable [id number] Attending Clinician Unavailable RIAZ BAIG Attending Clinician Unavailable JOSE WADSWORTH Attending Clinician Unavailable Jose Rey Attending Clinician Unavailable ISAAC MEEHAN Attending Clinician Unavailable TATO CLEMENTE Attending Clinician Unavailable CHARLES TORRES Attending Clinician Unavailable Jann MCKEON, Gallito Mccarthy Attending Clinician [phone] [email or web address] Attending Clinician Unavailable Estelle Schneider Attending Clinician [phone] Sergio Fuentes Attending Clinician [phone] ARUN SUERO Attending Clinician Unavailable Ramin De Leon MD Attending Clinician Unavailable Elmer Acevedo MD, Vangie Aldridge Attending Clinici an Ilya MCKEON, Wilmer Kothari Attending Clinician [phone] Deja MCKEON, Irlanda Mayen Attending Clinician [phone] Kellie MCKEON, Kashmir Attending Clinician Ralph MCKEON, Brett Shay Attending Clinician [phone] Raul MCKEON, Wendy David Attending Clinician [phone] BRETT SHAH Attending Clinician Unavailable Juan Carlos MCKEON, Kiarra Attending Clinician Chen Dsouza CRNA Attending Clinician Adalgisa MCKEON, Dl Attending Clinician Nancy MCKEON, Jacques Maradiaga Attending Clinician Bronson Michel CRNA Attending Clinician [phone] Isaac Meehan MD Attending Clinician Eyal OCHOA, Angel Attending Clinician Unavailable Heather Germain RN Attending Clinician Unavailable Chrissie Spence RN Attending Clinician Unavailable Dianelys Mitchell RN Attending Clinician Unavailable SAJI WOOD Attending Clinician Unavailable Doctor Unassigned, [place] Attending Clinician Unavailable Brown Lees MD Attending Clinician Daiana Osullivan MD Attending Clinician NICOL GALAN Attending Clinician Unavailable RANDOLPH NOGUEIRA Attending Clinician Unavailable MATHEW CRUM Attending Clinician Unavailable Pierre, Trish, Anav Admitting Clinician Unavailable [id number] Admitting Clinician Unavailable RIAZ BAIG Admitting Clinician Unavailable ISAAC MEEHAN Admitting Clinician Unavailable NOBLE MIRELES Admitting Clinician Unavailable CHITO_[email or web address]_J Admitting Clinician Unavailable RAMIN DE LEON Admitting Clinician Unavailable LOBO LIANG Admitting Clinician Unavailable AHSAN VARGAS Admitting Clinician Unavailable RANDOLPH NOGUEIRA Admitting Clinician Unavailable Payers Payer Name Policy Type Policy Number Effective Date Expiration Date Ari felix [facility] [id number] [facility] WELLMED [id number] 2021 00:00:00 WELLMED MEDICARE [id number] 2021 00:00:00 MEDICAID [facility] [id number] 2017 2017 00:00:00 00:00:00 [facility] [id number] [facility] [id number] 2017 MCR REPL 00:00[id number] (MEDICARE REPLACEMENT/ADVAN TAGE - PPO) [place] [id number] [place] [address] [id number] 2018 [employer] 00:00:00 [facility] Problems Condition Condition Condition Status Onset Resolution [...] Speech Speech Problem Active [facility] problem Problem 10-20 Medical 00:00: 00 Hyperlipid Hyperlipid Problem Active P [facility]ia emia emia 10-19 Medical 00:00: 00 Hypercoagu Hypercoagu Problem Active P [facility] lability lability 10-19 Medica l state State 00:00: 00 Hypertensi Hypertensi Problem Active P [facility] ve heart ve Heart 10-19 Medica l and renal and Renal 00:00: disease Disease 00 with renal with Renal failure Failure 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ynep via hyperparat Hyperparat 10-19 Me dical hyroidism hyroidism 00:00: 00 Abnormal Abnormal Problem Active [facility] a weight Weight 7 Medical loss Loss 00:00: 00 Secondary Secondary [...] ides ides 6-06 [facility] difficile difficile 00:00: [facility] kurt diarrhea diarrhea 00 Center Respirator Respirator [...] [facility] 00:[facility] Medical 00 Center Nausea and Nausea and Disease Active U T vomiting vomiting 5-10 Health 00:00: 00 Oropharyng Oropharyng Disease Active U T eal eal 2-01 Health dysphagia dysphagia 00:00: 00 Dysphagia Dysphagia Disease Active [facility] 00[facility] Medical 00 Center Parkinson' Parkinson' Disease Active [facility] s disease s disease 5-15 Luke s 00:00: Medical 00 Center Peritoneal Peritoneal Disease Active [facility] dialysis dialysis 5-14 [facility] catheter catheter 00:00: Medica l dysfunctio dysfunctio 00 Ce nter n, initial n, initial encounter encounter Obesity Obesity Disease Active Last [facility] 00:00: t & Plan: Medical [facility] g of this note might be different from the original. Current BMI is 34.9 which is acceptabl e for transplan t. We encourage d her to continue to increase physical activity as tolerated to aid with weight loss. Basal Basal Disease Active Last [facility] ganglia [facility] [address] [facility] degenerati degenerati 00:00: t & Plan: Medical on on [facility] g of this note might be [...] 00:00: t & Plan: M edical 00 [facility] g of this note might be different from the original. She will require strict blood glucose control . Other Other Disease Active [facility] specified specified 12-13 [facility] personal personal 00:00: of risk risk 00 Medicin factors, factors, e not not elsewhere elsewhere classified classified Dysphasia Dysphasia Disease Active [facility] following following 12-02 [place] unspecifie unspecifie [...] (HCCode) Cerebrovas Cerebrovas Disease Active B valeria culluiz cular 12-02 [place] accident accident 00:00: of (CVA) (CVA) 00 Medicin (HCCode) (HCCode) e Cerebral Cerebral Disease Active [place] [facility] [facility] atheroscle atheroscle 11-28 [facility] llege rosis rosis 00:00: of 00 Medicin e Localized Localized Disease Active [facility] edema due edema due 11-28 [facility] e[facility] [...] Active [facility] speech speech 5-26 [facility] 00:[facility]: Medical 00 Center Pre-transp Pre-transp Disease Active 2017-[address] lant lant 0-23 [facility] evaluation evaluation 00:00: t & Plan: Medical for for 00 [facility] chronic chronic g of this kidney kidney note disease disease might be different from the original. She is an acceptabl e candidate for kidney transplan t pending further testing and formal review at [facility]. ESRD (end ESRD (end Disease Active 2017-[address] stage stage 0-23 [facility] renal renal 00:00: t & Plan: Medical disease) disease) [address] [facility] [address] on on g of this dialysis dialysis note might be different from the original. 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 She has been on dialysis since 2017. She does have a potential donor at this time. Malfunctio Malfunctio Disease Active 2016-03 Overview : [facility] n of n of 1-07 [facility] arterioven arterioven 00:00: automatic of ous graft ous graft 00 ally [facility] request e for surgery [id number] Morbid Morbid Disease Active 2016-03 [facility] obesity obesity 0-16 College with body with body 00:00: of mass index mass index 00 Me dicin of of e 40.0-49.9 40.0-49.9 [facility] Thrombosis Thrombosis Disease Active 2016-03 Overview : Univers of kidney of kidney 0-13 Added ity of dialysis dialysis 00:00: automatic Red as arterioven arterioven 00 ally from Medical ous graft, ous graft, request Skylar randall initial initial for encounter encounter surgery [id number] CKD CKD Disease Active Timmy (chronic (chronic - Health kidney kidney 00:00: disease) disease) 00 Major Major Disease Active Timmy depressive depressive 11-20 He alth disorder, disorder, 00:00: recurrent recurrent 00 episode, episode, unspecifie unspecifie d d Localized Localized Disease Active 2009-03 [facility] ris osteoarthr osteoarthr 2 He alth osis not osis not 00:00: specified specified 00 whether whether primary or primary or secondary, secondary, pelvic pelvic region and region and thigh thigh Localized Localized Disease Active [facility] ris osteoarthr osteoarthr 11-01 He alth osis not osis not 00:00: specified specified 00 whether whether primary or primary or secondary, secondary, lower leg lower leg 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 09-14 Health 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 Routine Routine Disease Active Timmy gynecologi gynecologi 6 He alth kurt kurt 00:00: examinatio examinatio 00 n n Pain in Pain in Disease Active Timmy [...] mellitus 00:00: 00 Screening Screening Disease Active [facility] ris 06-28 Health 00:00: 00 Allergic Allergic Disease Active Clara crockett rhinitis, rhinitis, 05 Heal th cause cause 00:00: unspecifie unspecifie 00 d d Lumbago Lumbago Disease Active [facility] 4-05 Health 00:00: 00 Depression Depression Disease Active H arris 3 Health 00:00: 00 Anemia in Anemia in Problem Active Zeynep via chronic Chronic Medical kidney Kidney disease Disease 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 Degenerati on with on with calcificat Calcificat ion ion Hemodialys Hemodialys Problem Active P rivia is-associa is-associa Me dical sally sally hypotensio Hypotensio n n [id number] Dependence Problem Active Co mmon on renal Spirit dialysis [facility] [id number] Body mass Problem Active Com mon index Spirit (BMI) [facility] 35.0-35.9[facility] [id number] History of Problem Active Co mmon CVA with Spirit residual [facility] deficit [facility] [id number] Anemia of Problem Active Com mon chronic Spirit disease [facility] [id number] Left-sided Problem Active Co mmon weakness Spirit [facility] [id number] End stage Problem Active Comm on renal Spirit disease [facility] [id number] Mixed Problem Active Common hyperlipid Spirit emia [facility] [id number] Depression Problem Active Co mmon with Spirit anxiety [facility] Allergies, Adverse Reactions, Alerts Allergy Allergy Status Severity Reaction(s) Onset Inactive Treating Comm ents Source Name Type Date Date Clinician Shellfis Propensi Active Itching [facility] 08[facility]06 [facility] Containi adverse 00:00: Medical ng reaction 00 Center Products s CRAYFISH Allergy Active High Anaphylaxis SL EH [...] s Shellfis Propensi Active Hives 2018-03 Only [facility]-Derive ty to 03-29 [facility] Health d adverse 00:00: per Products reaction 00 patient. s Shellfis Propensi Active Hives 2018-03 Only [place] h-Derive ty to 03-29 [facility] e d adverse 00:00: per of Products reaction 00 patient. Medi leticia s to e drug Shellfis Propensi Active Hives 2018-03 Only Univer s h ty to 03-29 crawfish ity of Derived adverse 00:00: per [place] reaction 00 patient. Medica l s Branch 0 Drug Active Unknown Common allergy Spirit - [facility] NO KNOWN Allergy Active [facility] ALLERGIE S Family History Family Member Diagnosis Comments Start Date Stop Date Source Natural father Diabetes [facility] Natural father Hypertension [facility] Natural father Stroke [facility] Natural mother Arthritis [facility] Natural mother Diabetes [facility] Natural mother Hypertension [facility] Natural sister Cancer [facility] Natural sister Hypertension [facility] Natural sister Clotting disorder [facility] Social History Social Habit Start Date Stop Date Quantity Comments Source History SDOH [facility] History SDOH [facility] Alcohol Std Drinks Medica Center History [facility] Alcohol Binge Medical Krista ter History of Tobacco Common Spirit - Use [facility] Exposure to 2022-01-21 2022-01-31 Not sure [facility] SARS-CoV-2 (event) 00:00:00 10:24:00 Alcohol intake 2021-09-12 2021-09-[address] [facility] St Virgie es 00:00:00 00:00:00 non-drinker of Medical Ce nter alcohol (finding) History [facility] 2021-09-03 2021-09-[address] [facility] Housing Unable to 00:00:00 00:00:00 Medical Center Pay History [facility] 2021-08-11 2021-08-[address] [facility] Housing Places 00:00:00 00:00:00 Medical Ce nter Lived History [facility] 2021-08-11 2021-08-[address] [facility] Housing Homeless 00:00:00 00:00:00 Medical Center Last Year History SDOH 2019-11-04 2019-11-04 social CLAYTON Hsieh Alcohol Comment 00:00:00 00:00:00 Medical C enter Tobacco use and 2017-12-14 2017-12-14 Never used CLAYTON Muir exposure 00:00:00 00:00:00 Medical Center Sex [birth year] CLAYTON Muir 00:00:00 00:00:00 Medical Center Smoking Status Start Date Stop Date Source Tobacco smoking consumption unknown [facility] Never smoked tobacco [facility] Medications Ordered Filled Start Stop Current Ordering Indication Dosage Frequency Signature Comments Components Source Medication Medication Date Date Medication? Clinician (SIG) Name Name cholecalcif 2021-03 Yes 5000U QD Take 5,000 UT qian (D3-5) 1-08 Units by [facility] 5,000 Units 10:40: mouth 1 tablet 44 (one) time each day. midodrine 2021-03 Yes Take 2 UT (Proamatine -08 tablets [facility] ) 5 MG 10:40: twice tablet 44 daily lacosamide 2021-03 Yes [id number] TAKE 1 U T (Vimpat) 1-08 TABLET BY Health 200 mg 00:00: MOUTH ON tablet 00 SUNDAY, tablet SUNDAY AND FRIDAYStre ngth: 200 mg levETIRAcet 2021-03 Yes [id number] TAKE ONE UT am (Keppra) -08 TABLET BY [facility] 500 MG 00:00: MOUTH tablet 00 THREE TIMES A WEEK (SUNDAY, SUNDAY, AND SUNDAY)Str ength: 500 mg carbidopa-l 2021-03- Yes [id number] 2{tbl} Q.5D Take 2 UT evodopa 04-02 05-08 tablets by [facility] (Sinemet) 00:00: 04:59 mouth in 25-100 MG 00 :00 the tablet morning and 2 tablets in the evening. rotigotine 2021-03- Yes [id number] 1{patch QD Place 1 UT (Neupro) 6 04-02-08 } patch on Heal th MG/24HR 00:00: 04:59 the skin 1 00 :00 (one) time each day. topiramate 2021-03- Yes [id number] 50mg Q.5D Take 1 UT 50 MG -08 -08 tablet (50 Health tablet 00:00: 04:59 mg total) 00 :00 by mouth in the morning and 1 tablet (50 mg total) in the evening. topiramate 2021-03 No UT 50 MG 1-06 08 Health tablet 00:00: 00:00 00 :00 levETIRAcet 2021-03 No TAKE ONE U T am (Keppra) 0-30 01-31 TABLET BY latosha 500 MG 00:00: 00:00 MOUTH tablet 00 :00 THREE TIMES A WEEK (SUNDAY, SUNDAY, AND SUNDAY) lacosamide 2021-03 No TAKE 1 UT (Vimpat) 0-05 01-31 [...] times a week after dialysis SUN/ I. lacosamide Yes 200mg Take [address] [facility] 200 mg Tab 7-04 tablet [facility] 00:00: (200 mg Medical 00 total) by Center mouth 3 (three) times a week after dialysis I. Max Daily Amount: 200 mg levETIRAcet 2021-0 Yes 500mg Take [address] am (KEPPRA) 7-04 (500 mg [facility] 500 mg/5 mL 00:00: total) by M kelly (5 mL) Soln 00 mouth 3 Cente r oral (three) solution times a week after dialysis I. lacosamide 0 Yes 200mg Take [address] 200 mg Tab - tablet [facility] 00:00: (200 mg Medical 00 total) by Center mouth 3 (three) times a week after dialysis I. Max Daily Amount: 200 mg levETIRAcet 0 Yes 500mg Take [address] am (KEPPRA) 7-04 (500 mg [facility] 500 mg/5 mL 00:00: total) by Mikey mendoza (5 mL) Soln 00 mouth 3 Cente r oral (three) solution times a week after dialysis I. topiramate 0 2022- No 50mg Take [address] (TOPAMAX) 09-26- tablet (50 Virgie es 50 MG 00:00: 23:59 mg total) Medica l tablet 00 :00 by mouth 3 Center (three) times a week after dialysis I. topiramate 2021-0 2022- No 50mg Take [address] (TOPAMAX) 09-26-04 tablet (50 Virgie es 50 MG 00:00: 23:59 mg total) Medica l tablet 00 :00 by mouth 3 Center (three) times a week after dialysis I. topiramate 2021-0 2022- No 50mg Take [address] (TOPAMAX) -06 30-04 tablet (50 Virgie es 50 MG 00:00: 23:59 mg total) Medica l tablet 00 :00 by mouth 3 Center (three) times a week after dialysis I. pyridoxine, 2021-0 2022- No 25mg QD Take [address] vitamin B6, 09-25- tablet (25 L ukes (B-6) 25 MG 00:00: 23:59 mg total) Medical tablet 00 :00 by mouth Center daily. pyridoxine, 2022- No 25mg QD Take [address] vitamin B6, 09-25- tablet (25 L ukes (B-6) 25 MG [...] Medical tablet 11 Center carbidopa-l Yes 2{tbl} Q.[id number] Take [address] evodopa 09-24 [id number] tablets by [facility] (SINEMET) 16:12: 3D mouth 3 Medic al 25-100 mg 11 (three) Center per tablet times daily. rotigotine Yes 1{patch QD Place [address] (NEUPRO) 6 09-24 } patch onto Virgie es mg/24 hour 16:12: the skin Med ical 11 daily. [place] pravastatin Yes 20mg QD Take [address] (PRAVACHOL) 7-02 by mouth Luke s 20 MG 16:12: daily. Medical tablet 11 [place] carbidopa-l Yes 2{tbl} Q.[id number] Take [address] evodopa 7- [id number] tablets by [facility] (SINEMET) 16:12: 3D mouth 3 Medic al 25-100 mg 11 (three) Center per tablet times daily. rotigotine Yes 1{patch QD Place [address] (NEUPRO) 6 7- } patch onto Virgie es mg/24 hour 16:12: the skin Med ical 11 daily. [place] pravastatin Yes 20mg QD Take [address] (PRAVACHOL) 7-02 by mouth Luke s 20 MG 16:12: daily. Medical tablet 11 [place] carbidopa-l Yes 2{tbl} Q.[id number] Take [address] evodopa - [id number] tablets by [facility] (SINEMET) 16:12: 3D mouth 3 Medic al 25-100 mg 11 (three) Center per tablet times daily. rotigotine Yes 1{patch QD Place [address] (NEUPRO) 6 7- } patch onto Virgie es mg/24 hour 16:12: the skin Med ical 11 daily. [place] ascorbic 2021- No 500mg QD Take [address] acid, 09-24 07-02 mg by [facility] vitamin C, 11:43: 00:00 mouth Medic al (ASCORBIC 48 :00 daily. [place] ACID WITH SKYLAR HIPS) 500 MG tablet melatonin/p 2021- No 10mg QD Take [address] yridoxine 09-24-02 by mouth [facility] (MELATONIN, 11:43: 00:00 every Medi kurt WITH B6, 48 :00 evening. Center ORAL) ascorbic 2021-0 2021- No 500mg QD Take [address] acid, 09-24 07-02 mg by [facility] vitamin C, 11:43: 00:00 mouth Medic al (ASCORBIC 48 :00 daily. Center ACID WITH SKYLAR HIPS) 500 MG tablet melatonin/p 2022-0 2021- No 10mg QD Take [address] yridoxine -05 02-02 by mouth [facility] (MELATONIN, 11:43: 00:00 every Medi kurt WITH B6, 48 :00 evening. Center ORAL) ascorbic 2-0 2- No 500mg QD Take [address] acid, -05 02-02 mg by [facility] vitamin C, 11:43: 00:00 mouth Medic al (ASCORBIC 48 :00 daily. Center ACID WITH SKYLAR HIPS) 500 MG tablet melatonin/p 2021-0 2021- No 10mg QD Take [address] yridoxine -05 02-02 by mouth [facility] (MELATONIN, 11:43: 00:00 every Medi kurt WITH B6, 48 :00 evening. Center ORAL) apixaban 2022-0 Yes 5mg Q.5D Take [address] (ELIQUIS) 5 7-02 tablet (5 Vir[facility] es mg Tab 00:00: mg total) Medica l tablet 00 by mouth 2 Center (two) times daily. lacosamide 2022-0 Yes 200mg Q.5D Take [address] 200 mg Tab 7-02 tablet [facility] 00:00: (200 mg Medical 00 total) by Center mouth 2 (two) times daily. Max Daily Amount: 400 mg apixaban 2022-0 Yes 5mg Q.5D Take [address] (ELIQUIS) 5 7-02 tablet (5 Virgie es mg Tab 00:00: mg total) Medica l tablet 00 by mouth 2 Center (two) times daily. lacosamide 2022-0 Yes 200mg Q.5D Take [address] 200 mg Tab 7-02 tablet [facility]ukes 00:00: (200 mg Medical 00 total) by Center mouth 2 (two) times daily. Max Daily Amount: 400 mg apixaban 2022-0 Yes 5mg Q.5D Take [address] (ELIQUIS) 5 7-02 tablet (5 Virgie es mg Tab 00:00: mg total) Medica l tablet 00 by mouth 2 Center (two) times daily. lacosamide 2022-0 Yes 200mg Q.5D Take [address] 200 mg Tab 7-02 tablet [facility] 00:00: (200 mg Medical 00 total) by Center mouth 2 (two) times daily. Max Daily Amount: 400 mg hydrALAZINE 2021-0 2022- No 100mg Take [address] (APRESOLINE -05 02- tablet [facility] ) 100 MG 00:00: 23:59 (100 mg Medic al tablet 00 :00 total) by Center mouth every 8 (eight) hours. metoprolol 2021-0 2022- No 100mg Q.5D Take [address] tartrate -05 02-02 tablet [facility] (LOPRESSOR) 00:00: 23:59 (100 mg Me dical 100 MG 00 :00 total) by Center tablet mouth 2 (two) times daily. NIFEdipine 2021-0 2022- No 60mg Q.5D Take [address] (PROCARDIA- - 07-02 tablet (60 L ukes XL) 60 MG 00:00: 23:59 mg total) Me dical (OSM) 24 hr 00 :00 by mouth 2 Ce nter tablet (two) times daily. topiramate 2021-2022- No 50mg Take [address] (TOPAMAX) 09-24-02 tablet (50 Virgie es 50 MG 00:00: 23:59 mg total) Medica l tablet 00 :00 by mouth Center every 12 (twelve) hours. hydrALAZINE 2021-2022- No 100mg Take [address] (APRESOLINE -05 02- tablet [facility] ) 100 MG 00:00: 23:59 (100 mg Medic al tablet 00 :00 total) by Center mouth every 8 (eight) hours. metoprolol 2021-0 2022- No 100mg Q.5D Take [address] tartrate -05 02- tablet [facility] (LOPRESSOR) 00:00: 23:59 (100 mg Me dical 100 MG 00 :00 total) by Center tablet mouth 2 (two) times daily. NIFEdipine 2021-0 2022- No 60mg Q.5D Take [address] (PROCARDIA- 7-02 07-02 tablet (60 L ukes XL) 60 MG 00:00: 23:59 mg total) Me dical (OSM) 24 hr 00 :00 by mouth 2 Ce nter tablet (two) times daily. topiramate 2021-0 2022- No 50mg Take [address] (TOPAMAX) 7- 07-02 tablet (50 Virgie es 50 MG 00:00: [...] days. Max Daily Amount: 0.5 mg valproic 2021-0 2- No 1000mg Take [address] acid, as 09-24-01 mLs (1,000 Luke s sodium 00:00: 23:59 mg total) Medic al salt, 00 :00 by mouth Center (DEPAKENE) every 8 250 mg/5 mL (eight) (5 mL) hours for solution 30 days. clonazePAM 2021-0 2021- No .5mg QD Take [address] (KlonoPIN) 09-24- tablet [facility] 0.5 MG 00:00: 23:59 (0.5 mg Medical tablet 00 :00 total) by Center mouth nightly for 30 days. Max Daily Amount: 0.5 mg valproic 2021-0 2021- No 1000mg Take [address] acid, as 09-24- mLs (1,000 Luke s sodium 00:00: 23:59 mg total) Medic al salt, 00 :00 by mouth Center (DEPAKENE) every 8 250 mg/5 mL (eight) (5 mL) hours for solution 30 days. epoetin 2021-0 Yes anemia [id number] Inject [address] pb 5-28 mL (10,000 [facility] (EPOGEN,PRO 00:00: Units Medic al CRIT) 00 total) Center 10,000 subcutaneo unit/mL usly 3 injection (three) times a week at bedtime TUE/BACILIO/SA T. epoetin 2021-0 Yes anemia [id number] Inject [address] pb 5-28 mL (10,000 [facility] (EPOGEN,PRO 00:00: Units Medic al CRIT) 00 total) Center 10,000 subcutaneo unit/mL usly 3 injection (three) times a week at bedtime TUE/BACILIO/SA T. epoetin 2021-0 Yes anemia [id number] Inject [address] bp 5-28 mL (10,000 [facility] (EPOGEN,PRO 00:00: Units Medic al CRIT) 00 total) Center 10,000 subcutaneo unit/mL usly 3 injection (three) times a week at bedtime TUE/BACILIO/SA T. levETIRAcet 2021-0 Yes 1000mg Q24H Inject [facility] am (KEPPRA) 5-28 1,000 mg Luke s IVPB 00:00: intravenou Medical 00 sly daily. Center epoetin 0 Yes anemia [id number] Inject [address] pb 5-28 mL (10,000 [facility] (EPOGEN,PRO 00:00: Units Medic al CRIT) 00 total) Center 10,000 subcutaneo unit/mL usly 3 injection (three) times a week at bedtime SUN/SUN/SA T. levETIRAcet Yes 1000mg Q24H Inject [facility] am (KEPPRA) 5-28 1,000 mg Luke s IVPB 00:00: intravenou Medical 00 sly daily. Center epoetin Yes anemia [id number] Inject [address] pb 5-28 mL (10,000 [facility] (EPOGEN,PRO 00:00: Units Medic al CRIT) 00 total) Center 10,000 subcutaneo unit/mL usly 3 injection (three) times a week at bedtime SUN/BACILIO/SA T. ergocalcife 0 3- No [id number] Q7D Take [address] rol 5-28 05-28 capsule [facility] (ERGOCALCIF 00:00: 23:59 (50,000 Me dical QIAN) 1,250 00 :00 Units Center mcg (50,000 total) by unit) mouth once capsule a week. ergocalcife 2021-0 2022- No [id number] Q7D Take [address] rol 5-28 05-28 capsule [facility] (ERGOCALCIF 00:00: 23:59 (50,000 Me dical QIAN) 1,250 00 :00 Units Center mcg (50,000 total) by unit) mouth once capsule a week. ergocalcife 2021-0 2023- No [id number] Q7D Take [address] rol 5-28 05-28 capsule [facility] (ERGOCALCIF 00:00: 23:59 (50,000 Me dical QIAN) 1,250 00 :00 Units Center mcg (50,000 total) by unit) mouth once capsule a week. ergocalcife 202-0 2023- No [id number] Q7D Take [address] [facility] 08-20 [facility] (ERGOCALCIF 00:00: 23:59 (50,000 Me dical QIAN) 1,250 00 :00 Units Center mcg (50,000 total) by unit) mouth once capsule a week. ergocalcife 2022- No [id number] Q7D Take [address] [facility] 08-20 [facility] (ERGOCALCIF 00:00: 23:59 (50,000 Me dical QIAN) 1,250 00 :00 Units Center mcg (50,000 total) by unit) mouth once capsule a week. levETIRAcet 2021- No 1000mg Q24H Inject [facility] (KEPPRA) 08-20-02 1,000 mg [facility] IVPB 00:00: 00:00 intravenou Medica l 00 :00 sly daily. [place] levETIRAcet 2021- No 1000mg Q24H Inject [facility] (KEPPRA) 08-2002 1,000 mg [facility] IVPB 00:00: 00:00 intravenou Medica l 00 :00 sly daily. [place] levETIRAcet 2021- No 1000mg Q24H Inject [facility] (KEPPRA) 08-20-02 1,000 mg [facility] IVPB 00:00: 00:00 intravenou Medica l 00 :00 sly daily. [place] pravastatin Yes 20mg QD Take [address] [facility] (PRAVACHOL) 5-27 by mouth [facility] 20 MG 13:34: daily. Medical tablet 05 [facility] ascorbic Yes 500mg QD Take [address] [facility] acid, 5-27 mg by [facility] vitamin C, 13:34: mouth Medica l (ASCORBIC 05 daily. [place] ACID WITH SKYLAR HIPS) 500 MG tablet carbidopa-l Yes 2{tbl} Q.[id number] Take [address] [facility] evodopa 5-27 [id number] tablets by [facility] (SINEMET) 13:34: 3D mouth 3 Medic al 25-100 mg 05 (three) Center per tablet times daily. rotigotine Yes 1{patch QD Place [address] [facility] (NEUPRO) 6 5-27 } patch onto [facility] mg/24 hour 13:34: the skin Med ical 05 daily. [place] pravastatin 0 Yes 20mg QD Take [address] [facility] (PRAVACHOL) 5-27 by mouth [facility] s 20 MG 13:34: daily. Medical tablet 05 [place] ascorbic 0 Yes 500mg QD Take [address] [facility] [address] acid, 5-27 mg by [facility] vitamin C, 13:34: mouth Medica l (ASCORBIC 05 daily. [place] ACID WITH SKYLAR HIPS) 500 MG tablet carbidopa-l 0 Yes 2{tbl} Q.25365251 Take [address] [facility] evodopa 5-27 [id number] tablets by [facility] (SINEMET) 13:34: 3D mouth 3 Medic al 25-100 mg 05 (three) Center per tablet times daily. rotigotine 0 Yes 1{patch QD Place [address] (NEUPRO) 6 5-27 } patch onto [facility] mg/24 hour 13:34: the skin Med ical 05 daily. [place] melatonin/p 2021-0 Yes 10mg QD Take 10 [...] Medi kurt 5,000 unit 22 :00 daily. [facility] Tab midodrine 2021-0 202- No 5mg Q.5D Take 5 mg [facility] [...] (two) Center packet times daily. Missing or 2022-0 2021- No 2400mg Take 2,[address] [facility] [...] 22 :00 daily. Center Tab midodrine 2021-0 2- No 5mg Q.5D Take [address] [facility] [address] [facility] (PROAMATINE 5-27 05-27 by mouth 2 L [facility] ) 5 MG 10:39: 00:00 (two) Medical tablet 22 :00 times Center daily. potassium 2021-0 2022- No 20meq Q.5D Take [address] [facility] chloride 5-27 05-27 mEq by [facility] (KLOR-CON) 10:39: 00:00 mouth 2 Med ical 20 mEq 22 :00 (two) Center packet times daily. Missing or 2021- 202- No 2400mg Take 2,[address] [facility] Non-Formula [...] 22 :00 daily. Center Tab midodrine 2021- 2022- No 5mg Q.5D Take 5 mg [...] to swallow the pills) . cholecalcif 2021-0 2- No 5000U QD Take 5,[address] [facility] qian, 5-27 05-27 Units by [facility] vitamin D3, 10:39: 00:00 mouth Medi kurt 5,000 unit 22 :00 daily. Center Tab midodrine 2-0 2022- No 5mg Q.5D Take 5 mg [...] No 1{appli Apply [address] [facility] (GARAMYCIN) 08-19-27 cation} applicatio [facility] 0.1 % cream 00:00: 23:59 n Medic al 00 :00 topically Center as needed (PERITONEA L DIALYSIS). insulin 2022- No 0U Inject 0-[address] [facility] [address] lispro -27 05-27 Units [facility] (HumaLOG) 00:00: 23:59 subcutaneo [...] No 0U Inject 0-[address] [facility] lispro -27 05-27 Units [facility] (HumaLOG) 00:00: 23:59 subcutaneo M edical 100 unit/mL 00 :00 usly 3 Center injection (three) times daily before meals. acetaminoph 2022- No 650mg Take [address] en 08-19-22 tablets [facility] (TYLENOL) 00:00: 23:59 (650 mg Medi kurt 325 MG 00 :00 total) by Center tablet mouth every 4 (four) hours as needed for up to 360 days. acetaminoph 2022- No 650mg Take [address] en 08-19-22 tablets [facility] (TYLENOL) 00:00: 23:59 (650 mg [...] kurt imethicone 00 :00 every 6 Center [facility]US) hours as 400-400-40 needed for [...] 100mg Take 1 [facility] sodium 5-27 07-02 capsule [facility] (COLACE) 00:00: 00:00 (100 mg [...] Inject [address] mg/mL SolR 08-19- mL (1 mg Luke s injection 00:00: [...] 15mL Q.5D Use as [facility] ne 08-19- directed [facility] (PERIDEX) 00:00: 23:59 15 mLs in Me dical 0.12 % 00 :00 the mouth Center solution or throat 2 (two) times daily for 14 days. chlorhexidi 2021-2021- No 15mL Q.5D Use as [facility] ne 08-19- directed [facility] (PERIDEX) 00:00: 23:59 15 mLs [...] for up to 10 days. aluminum & 2021- No 30mL Take [...] needed for up to 7 days. mupirocin 2021-2021- No 1g Q.5D 1 g by [facility] [...] needed for up to 7 days. vancomycin 2021-2021- No 1500mg Inject [facility] (VANCOCIN) [...] (V2B) IVPB for 1 dose. atenolol 2021-0 2021- No 100mg QD Take [address] [facility] (TENORMIN) 5-19 05-19 mg by [facility] 100 MG 08:56: 00:00 mouth Medical tablet 42 :00 daily Pt Center takes when HR>100 . atenolol 2-0 2- No 100mg QD Take [address] [facility] (TENORMIN) 5-19 05-19 mg by [facility] 100 MG 08:56: 00:00 mouth Medical tablet 42 :00 daily Pt Center takes when HR>100 . atenolol 2-0 2022- No 100mg QD Take [address] [facility] [address] (TENORMIN) 5-19 05-19 mg by [facility] 100 MG 08:56: 00:00 mouth Medical tablet 42 :00 daily Pt Center takes when HR>100 . atenolol 2022-0 2022- No 100mg QD Take 100 [facility] [...] Center takes when HR>100 . ferrous 2021-0 2022- No 324mg Take [address] [facility] [address] gluconate 5-19 05-19 mg by [facility] (FERGON) 08:56: 00:00 mouth Medical 324 MG 17 :00 daily with Center tablet breakfast. ferrous 2021-0 2022- No 324mg Take [address] [facility] [address] gluconate 5-19 05-19 mg by [facility] (FERGON) 08:56: 00:00 mouth Medical 324 MG 17 :00 daily with Center tablet breakfast. ferrous 202-0 2022- No 324mg Take [address] [address] gluconate 5-19 05-19 mg by [facility] (FERGON) 08:56: 00:00 mouth Medical 324 MG 17 :00 daily with Center tablet breakfast. ferrous 2021-0 2021- No 324mg Take [address] [address] gluconate 5-19 05-19 mg by [facility] (FERGON) 08:56: 00:00 mouth Medical 324 MG 17 :00 daily with Center tablet breakfast. ferrous 2021-0 2- No 324mg Take [address] gluconate 5-19 05-19 mg by [facility] (FERGON) 08:56: 00:00 mouth Medical 324 MG 17 :00 daily with Center tablet breakfast. cholecalcif Yes 5000U QD Take 5,000 [facility] qian (D3-5) 5-10 Units by [facility] 5,000 Units 10:53: mouth 1 tablet 50 (one) time each day. midodrine Yes Take 2 [facility] (Proamatine 5-10 tablets Healt h ) 5 MG 10:53: twice tablet 50 daily rotigotine 0 2021- No [id number] 1{patch QD Place 1 [facility] (Neupro) 6 5-10 08 } patch on Heal th MG/24HR 00:00: 00:00 the skin 1 00 :00 (one) time each day. carbidopa-l 0 2- No [id number] 2{tbl} Q.14292352 Take 2 [facility] evodopa 5-01 03- [id number] tablets by Health (Sinemet) 00:00: 00:00 3D mouth 3 25-100 MG 00 :00 (three) tablet times a day. ondansetron 2- No [id number] 8mg Q.03206281 Take 1 [facility] (Zofran) 8 -01 03- [id number] tablet (8 Health MG tablet 00:00: 05:59 3D mg total) 00 :00 by mouth 3 (three) times a day. rotigotine 2021- No [id number] 1{patch QD Place 1 [facility] (Neupro) 6 08-02 } patch on Heal th MG/24HR 00:00: 05:59 the skin 1 00 :00 (one) time each day. carbidopa-l 2021- No [id number] 2{tbl} Q.[id number] Take 2 [facility] evodopa -01-30 [id number] tablets by Health (Sinemet) 00:00: 05:59 3D mouth 3 25-100 MG 00 :00 (three) tablet times a day. Eliquis 5 0 Yes 5mg Q.5D Take 5 mg [facility] MG tablet 4-27 by mouth 2 Heal th 00:00: (two) 00 times a day. Eliquis 5 2021-0 Yes 5mg Q.5D Take 5 mg [facility] MG tablet 4-27 by mouth 2 Heal th 00:00: (two) 00 times a day. sevelamer Yes MIX 1 [facility] carbonate 2-24 PACKET AND Heal th (Renvela) 00:00: DRINK 2.4 g 00 THREE packet TIMES DAILY sevelamer 2021-0 Yes MIX 1 [facility] carbonate 2-24 PACKET AND Heal th (Renvela) 00:00: DRINK 2.4 g 00 THREE packet TIMES DAILY Ascorbic 2021-0 Yes 1{tbl} QD Take 1 [facility] Acid 2-01 tablet by Health (vitamin C) 00:00: mouth 1 250 MG 00 (one) time tablet each day. Melatonin 2021-0 Yes 1{tbl} Take 1 [facility] 10 MG 2-01 tablet by Health tablet 00:00: mouth 00 every night. Multiple 2021-0 Yes 1{tbl} QD Take 1 [facility] Vitamin [...] Take 1 [facility] Vitamin 2-01 tablet by [facility] (Multivitam 00:00: mouth 1 in Adult) 00 (one) time tablet each day. ondansetron 2021- No 8mg Q.[id number] Take 8 mg [facility] (Zofran) 8 2-01 05-10 [id number] by mouth 3 Health MG tablet 00:00: [...] daily for 30 days. hydrocodone 2019-03 Yes [id number] tk 1 tab [facility] -acetaminop 0-29 [id number] po q 8 h [facility] hen [...] DAILY FOR Medicin 30 DAYS e hydrocodone 2019-0 Yes [id number] tk 1 to 2 [facility] -acetaminop 9-10 [id number] tabs po q [facility] hen (Neohapsis) 00:00: 6 h prn of 7.5-325 MG 00 severe Medicin per tablet pain e hydrocodone 0 2020- No [id number] tk 1 to 2 [facility] -acetaminop 9-10 10-29 [id number] tabs po q College hen (Neohapsis) 00:00: 00:00 6 h prn of 7.5-325 MG 00 :00 severe Medicin per tablet pain e hydrocodone 0 Yes [id number] tk 1 to 2 [facility] -acetaminop 8-20 [id number] tabs po q [facility] (Neohapsis) 00:00: 6 h prn of 7.5-325 MG 00 severe Medicin per tablet pain e hydrocodone 0 2020- No [id number] tk 1 to 2 [facility] -acetaminop 8-20 09-10 [id number] tabs po q [facility] hen (Neohapsis) 00:00: 00:00 6 h prn of 7.5-325 [...] e 90 DAYS metformin Yes TAKE 1 [facility] (GLUCOPHAGE 7-30 TABLET BY Col lege ) 500 MG 00:00: MOUTH ONCE of tablet 00 DAILY WITH Medicin A MEAL FOR e 90 DAYS ELIQUIS 5 Yes TAKE 1 [place] MG TABS 7-30 TABLET BY [place] [facility] 00:00: MOUTH of 00 TWICE Medicin DAILY FOR e 90 DAYS metformin Yes TAKE 1 [facility] (GLUCOPHAGE 7-30 TABLET BY Col [facility] ) 500 MG 00:00: MOUTH ONCE of tablet 00 DAILY WITH Medicin A MEAL FOR e 90 DAYS ELIQUIS 5 Yes TAKE 1 [facility] MG TABS 7-30 TABLET BY [place] 00:00: MOUTH of 00 TWICE Medicin DAILY [...] 00:00: 00:00 times Medical 00 :00 daily. [place] ELIQUIS 5 2021- No 5mg Q.5D 5 mg 2 [facility] tablet 10-22 (two) [facility] 00:[facility]: 00:00 times Medical 00 :00 daily. [place] ELIQUIS 5 2021- No 5mg Q.5D 5 mg 2 [facility] MG tablet 10-22 (two) [facility] 00:00: 00:00 times Medical 00 :00 daily. [place] ELIQUIS 5 2020-0 2022- No 5mg Q.5D 5 mg 2 [facility] MG tablet 10-22 (two) [facility] 00:00: 00:00 times Medical 00 :00 daily. [place] ELIQUIS 5 2020-0 2022- No 5mg Q.5D 5 mg 2 [facility] MG tablet 10-22 (two) [facility] 00:00: 00:00 times Medical 00 :00 daily. [place] spironolact 2020-0 Yes TAKE 1 [facility] one 7-29 TABLET BY [place] [facility] (ALDACTONE) 00:00: MOUTH ONCE of 25 MG 00 DAILY Medicin tablet e spironolact 2020-0 Yes TAKE 1 [facility] one 7-29 TABLET BY [place] [facility] (ALDACTONE) 00:00: MOUTH ONCE of 25 MG 00 DAILY Medicin tablet e spironolact 2020-0 Yes TAKE 1 [facility] one 7-29 TABLET BY [place] [facility] (ALDACTONE) 00:00: MOUTH ONCE of 25 MG 00 DAILY Medicin tablet e spironolact 2020-0 2022- No 25mg QD Take [...] 25 MG 00 :00 Center tablet atenolol 2020-0 Yes TAKE 1 [facility] (TENORMIN) 7-10 TABLET BY [facility] 50 MG 00:00: MOUTH ONCE of tablet 00 DAILY Medicin e clonidine 2020-0 Yes TAKE 1 [facility] (CATAPRESS) 7-10 TABLET BY Col [facility] 0.3 MG 00:00: MOUTH ONCE of tablet 00 DAILY Medicin e doxazosin 2020-0 Yes TAKE 1 [facility] (CARDURA) 8 7-10 TABLET BY Col [...] Medicin e doxazosin 2020-0 Yes TAKE 1 [facility] (CARDURA) 8 7-10 TABLET BY Col [facility] MG tablet 00:00: MOUTH ONCE of 00 DAILY Medicin e atenolol 2020-0 Yes TAKE 1 [place] (TENORMIN) 7-10 TABLET BY [facility] 50 MG 00:00: MOUTH ONCE of tablet 00 DAILY Medicin e clonidine 2020-0 Yes TAKE 1 [facility] (CATAPRESS) 7-10 TABLET BY Col [facility] 0.3 MG 00:00: MOUTH ONCE of tablet 00 DAILY Medicin e doxazosin 2020-0 Yes TAKE 1 [place] (CARDURA) 8 7-10 TABLET BY Col [facility] MG tablet 00:00: MOUTH ONCE of 00 DAILY Medicin e ascorbic 2018-03 Yes 500mg Take 500 Univ ers acid, 1-04 mg by ity of vitamin C, 16:36: mouth. [place] 500 mg Medical tablet Branch calcitriol 2018-03 Yes .25ug Take 0.25 U nivers 0.25 mcg 1-04 mcg by ity of capsule 16:36: mouth. [place] [address] Medical Branch Cholecalcif 2018-03 Yes 5000U Take 5,000 [facility] qian, 1-04 Units by ity of Vitamin D3, 16:36: [facility]. [facility] Medical tablet Branch [...] by ity o f 16:36: mouth at [place] [address] bedtime. Medical Branch ascorbic 2018-03 Yes 500mg Take 500 Univ ers acid, 1-04 mg by ity of vitamin C, 16:36: mouth. [place] 500 mg 39 Medical tablet Branch calcitriol 2018-03 Yes .25ug Take 0.25 U nivers 0.25 mcg 1-04 mcg by ity of capsule 16:36: mouth. [place] [address] Medical Branch Cholecalcif 2018-03 Yes 5000U Take [...] by ity o f 16:36: mouth at [place] [address] bedtime. Medical Branch ascorbic 2018-03 Yes 500mg Take 500 Univ ers acid, 1-04 mg by ity of vitamin C, 16:36: mouth. [place] 500 mg 39 Medical tablet Branch calcitriol 2018-03 Yes .25ug Take 0.25 U nivers 0.25 mcg 1-04 mcg by ity of capsule 16:36: mouth. [place] [address] Medical Branch Cholecalcif 2018-03 Yes 5000U Take [...] by ity o f 16:36: mouth at [place] [address] bedtime. Medical Branch ascorbic 2018-03 Yes 500mg Take 500 Univ ers acid, 1-04 mg by ity of vitamin C, 16:36: mouth. [place] 500 mg 39 Medical tablet Branch calcitriol 2018-03 Yes .25ug Take 0.25 U nivers 0.25 mcg 1-04 mcg by ity of capsule 16:36: mouth. [place] [address] Medical Branch Cholecalcif 2018-03 Yes 5000U Take [...] by ity o f 16:36: mouth at [place] [address] bedtime. Medical Branch ascorbic 2018-03 Yes 500mg Take 500 Univ ers acid, 1-04 mg by ity of vitamin C, 16:36: mouth. [place] 500 mg 39 Medical tablet Branch calcitriol 2018-03 Yes .25ug Take 0.25 U nivers 0.25 mcg 1-04 mcg by ity of capsule 16:36: mouth. [place] [address] Medical Branch Cholecalcif 2018-03 Yes 5000U Take [...] by ity o f 16:36: mouth at [place] [address] bedtime. Medical Branch ascorbic 2018-03 Yes 500mg Take 500 Univ ers acid, 1-04 mg by ity of vitamin C, 16:36: mouth. [place] 500 mg 39 Medical tablet Branch calcitriol 2018-03 Yes .25ug Take 0.25 U nivers 0.25 mcg 1-04 mcg by ity of capsule 16:36: mouth. [place] [address] Medical Branch Cholecalcif 2018-03 Yes 5000U Take [...] by ity o f 16:36: mouth at [place] [address] bedtime. Medical Branch aspirin 81 2018-03 Yes 81mg Take 81 mg U nivers mg EC 1-04 by mouth ity of tablet 16:32: daily. [place] [address] Medical Branch glimepiride 2018-03 Yes 4mg Take 4 mg U nivers 4 mg tablet 1-04 by mouth ity of 16:32: daily with [place] [address] breakfast. Medical Branch aspirin 81 2018-03 Yes 81mg Take 81 mg U nivers mg EC 1-04 by mouth ity of tablet 16:32: daily. [place] [address] Medical Branch glimepiride 2018-03 Yes 4mg Take 4 mg U nivers 4 mg tablet 1-04 by mouth ity of 16:32: daily with [place] [address] breakfast. Medical Branch aspirin 81 2018-03 Yes 81mg Take 81 mg U nivers mg EC 1-04 by mouth ity of tablet 16:32: daily. [place] [address] Medical Branch glimepiride 2018-03 Yes 4mg Take 4 mg U nivers 4 mg tablet 1-04 by mouth ity of 16:32: daily with [place] [address] breakfast. [facility] Branch aspirin 81 2018-03 Yes 81mg Take 81 mg U nivers mg EC 1-04 by mouth ity of tablet 16:32: daily. [place] [address] Medical Branch glimepiride 2018-03 Yes 4mg Take 4 mg U nivers 4 mg tablet 1-04 by mouth ity of 16:32: daily with [place] [address] breakfast. [facility] Branch aspirin 81 2018-03 Yes 81mg Take 81 mg U nivers mg EC 1-04 by mouth ity of tablet 16:32: daily. [address] Branch glimepiride 2018-03 Yes 4mg Take 4 mg U nivers 4 mg tablet 1-04 by mouth ity of 16:32: daily with [place] [address] breakfast. [facility] Branch aspirin 81 2018-03 Yes 81mg Take 81 mg U nivers mg EC 1-04 by mouth ity of tablet 16:32: daily. [address] Branch glimepiride 2018-03 Yes 4mg Take 4 mg U nivers 4 mg tablet 1-04 by mouth ity of 16:32: daily with [place] [address] breakfast. Medical Branch metFORMIN 2018-03 Yes TAKE [...] BY ity of tablet 00:00: MOUTH ONCE [place] DAILY WITH Medical A MEAL FOR Branch 90 DAYS ONETOUCH 2018-03 Yes USE Univers VERIO FLEX 0-02 DIRECTED ity o f Misc 00:00: ONCE DAILY Medical Branch ONETOUCH 2018-03 Yes USE Univers VERIO FLEX 0-02 DIRECTED ity o f Misc 00:00: ONCE DAILY Medical Branch ONETOUCH 2018-03 Yes USE Univers VERIO FLEX 0-02 DIRECTED ity o f Misc 00:00: ONCE DAILY Medical Branch ONETOUCH 2018-03 Yes USE Univers VERIO FLEX 0-02 DIRECTED ity o f Misc 00:00: ONCE DAILY Medical Branch [facility] 2018-03 Yes USE Univers VERIO FLEX 0-02 DIRECTED ity o f Misc 00:00: ONCE DAILY Medical Branch ONETOUCH 2018-03 Yes USE Univers VERIO FLEX 0-02 DIRECTED ity o f Misc 00:00: ONCE DAILY [place] [facility] Branch clopidogrel 2019-0 Yes 75mg Take 75 mg Univers 75 mg 6-17 by mouth. ity of tablet 00:00: [place] [facility] clopidogrel 2019-0 Yes 75mg Take 75 mg Univers 75 mg 6-17 by mouth. ity of tablet 00:00: [place] [facility] clopidogrel 2019-0 Yes 75mg Take 75 mg Univers 75 mg 6-17 by mouth. ity of tablet 00:00: [place] [facility] clopidogrel 2019-0 Yes 75mg Take 75 mg Univers 75 mg 6-17 by mouth. ity of tablet 00:00: [place] [facility] clopidogrel 2019-0 Yes 75mg Take 75 mg Univers 75 mg 6-17 by mouth. ity of tablet 00:00: [place] [facility] clopidogrel 2019-0 Yes 75mg Take 75 mg Univers 75 mg 6-17 by mouth. ity of tablet 00:00: [place] [facility] Branch acetaminoph 2016-03 Yes 1{tbl} Take 1 [...] 1{patch Apply 1 Un mike 0.3 mg/24 10-27 } Patch to ity of hr patch 00:00: skin as [place] [address] needed. Medical Branch pravastatin 0 Yes 20mg Take 20 mg Univers 20 mg 8-02 by mouth ity of tablet 00:00: at [place] [address] bedtime. Medical Branch pravastatin 0 Yes 20mg Take 20 mg Univers 20 mg 8-02 by mouth ity of tablet 00:00: at [place] [address] bedtime. Medical Branch pravastatin 0 Yes 20mg Take 20 mg Univers 20 mg 8-02 by mouth ity of tablet 00:00: at [place] [address] bedtime. Medical Branch pravastatin Yes 20mg Take 20 mg Univers 20 mg 8-02 by mouth ity of tablet 00:00: at [place] [address] bedtime. Medical Branch pravastatin Yes 20mg Take 20 mg Univers 20 mg 8-02 by mouth ity of tablet 00:00: at [place] [address] bedtime. Medical Branch pravastatin Yes 20mg Take 20 mg Univers 20 mg 8-02 by mouth ity of tablet 00:00: at [place] [address] bedtime. [facility] atenolol 50 Yes 50mg Take 50 mg Univers mg tablet 7-20 by mouth ity of 00:00: daily. [facility] atenolol 50 Yes 50mg Take 50 mg Univers mg tablet 7-20 by mouth ity of 00:00: daily. [facility] atenolol 50 Yes 50mg Take 50 mg Univers mg tablet 7-20 by mouth ity of 00:00: daily. [facility] atenolol 50 Yes 50mg Take 50 mg Univers mg tablet 7-20 by mouth ity of 00:00: daily. [facility] atenolol 50 Yes 50mg Take 50 mg Univers mg tablet 7-20 by mouth ity of 00:00: daily. [facility] Branch atenolol 50 Yes 50mg Take 50 mg Univers mg tablet 7-20 by mouth ity of 00:00: daily. [facility] Branch JANUVIA 50 Yes 50mg Take 50 mg U nivers mg tablet 7-17 by mouth ity of 00:00: daily. [facility] JANUVIA 50 Yes 50mg Take 50 mg U nivers mg tablet 7-17 by mouth ity of 00:00: daily. Medical Branch YANI 50 2016-0 Yes 50mg Take 50 mg U nivers mg tablet 7-17 by mouth ity of 00:00: daily. Medical Branch YANI 50 2017-0 Yes 50mg Take 50 mg U nivers mg tablet 7-17 by mouth ity of 00:00: daily. Medical Branch YANI 50 2016-0 Yes 50mg Take 50 mg U nivers mg tablet 7-17 by mouth ity of 00:00: daily. Medical Branch YANI 50 2016-0 Yes 50mg Take 50 mg U nivers mg tablet 7-17 by mouth ity of 00:00: daily. Medical Branch ramipril 5 2016-0 Yes 5mg [...] 00 times Medical daily. Branch doxazosin 4 2016-0 Yes 4mg Take 4 mg U nivers mg tablet 7-14 by mouth 2 ity of 00:00: (two) [place] 00 times Medical daily. Branch ramipril 5 0 Yes 5mg Take 5 mg Un mike mg capsule 7-14 by mouth ity o f 00:00: every [place] 00 evening. Medical Branch ramipril 5 0 Yes 5mg Take 5 mg Un mike [...] (six) Branch hours as needed. doxazosin 4 0 Yes 4mg Take 4 mg U nivers mg tablet 7-14 by mouth 2 ity of 00:00: (two) [place] 00 times Medical daily. Branch BELSOMRA 10 Yes 10mg 10 mg Unive rs mg Tab 6-21 every ity of 00:00: evening. [place] 00 Medical Branch BELSOMRA 10 0 Yes 10mg 10 mg Unive rs mg Tab 6-21 every ity of 00:00: evening. [facility] 10 Yes 10mg 10 mg Unive rs mg Tab 6-21 every ity of 00:00: evening. [facility] 10 Yes 10mg 10 mg Unive rs mg Tab 6-21 every ity of 00:00: evening. [facility] 10 Yes 10mg 10 mg Unive rs mg Tab 6-21 every ity of 00:00: evening. [facility] 10 Yes 10mg 10 mg Unive rs mg Tab 6-21 every ity of 00:00: evening. [facility] Yes Univers M10 10 mEq 6-20 ity of tablet 00:00: [facility] Yes Univers M10 10 mEq 6-20 ity of tablet 00:00: [facility] Yes Univers M10 10 mEq 6-20 ity of tablet 00:00: [facility] Yes Univers M10 10 mEq 6-20 ity of tablet 00:00: [facility] Yes Univers M10 10 mEq 6-20 ity of tablet 00:00: [facility] 0 Yes Univers M10 10 mEq 6-20 ity of tablet 00:00: [place] [facility] cloniDINE Yes .1mg Take 0.1 Univ ers [...] by ity of tablet 00:00: mouth 2 [place] (two) Medical times Branch daily. cloniDINE 2016-0 Yes .1mg Take 0.1 Univ ers 0.1 mg 5-25 mg by ity of tablet 00:00: mouth 2 [place] (two) Medical times Branch daily. NIFEdipine Yes 90mg Take 90 mg U nivers XL 90 mg 24 5-24 by mouth ity of hr tablet 00:00: daily. [place] [facility] Branch NIFEdipine 0 Yes 90mg Take 90 mg U nivers XL 90 mg 24 5-24 by mouth ity of hr tablet 00:00: daily. [place] [facility] NIFEdipine 0 Yes 90mg Take 90 mg U nivers XL 90 mg 24 5-24 by mouth ity of hr tablet 00:00: daily. [place] [facility] NIFEdipine Yes 90mg Take 90 mg U nivers XL 90 mg 24 5-24 by mouth ity of hr tablet 00:00: daily. [place] [facility] NIFEdipine 0 Yes 90mg Take 90 mg U nivers XL 90 mg 24 5-24 by mouth ity of hr tablet 00:00: daily. [place] [facility] NIFEdipine 0 Yes 90mg Take 90 mg U nivers XL 90 mg 24 5-24 by mouth ity of hr tablet 00:00: daily. [address] hydroCHLORO 0 Yes Univer s thiazide 25 5-23 ity of mg tablet 00:00: [address] hydroCHLORO 2016-0 Yes Univer s thiazide 25 5-23 ity of mg tablet 00:00: [address] hydroCHLORO 2017-0 Yes Univer s thiazide 25 5-23 ity of mg tablet 00:00: [address] hydroCHLORO 2016-0 Yes Univer s thiazide 25 5-23 ity of mg tablet 00:00: [address] hydroCHLORO 0 Yes Univer s thiazide 25 5-23 ity of mg tablet 00:00: [address] hydroCHLORO 0 Yes Univer s thiazide 25 5-23 ity of mg tablet 00:00: [address] NIFEdipine 0 Yes Essential 90mg QD Take 1 [facility] (PROCARDIA 4-06 hypertensio tablet by [employer]) 90 mg 00:00: n, benign mouth extended 00 daily. release tablet NIFEdipine Yes Essential 30mg QD Take 1 [facility] (PROCARDIA 4-06 hypertensio tablet by [employer]) 30 mg 00:00: n, benign mouth extended 00 daily Take release in tablet addition to 90 mg to make 120 mg daily. 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 release tablet NIFEdipine Yes Essential 30mg QD Take 1 [facility] (PROCARDIA 4-06 hypertensio tablet by [employer]) 30 mg 00:00: n, benign mouth extended 00 daily Take release in tablet addition to 90 mg to make 120 mg daily. 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 release tablet NIFEdipine Yes Essential 30mg QD Take 1 [facility] (PROCARDIA 4-06 hypertensio tablet by [facility]) 30 mg 00:00: n, benign mouth extended 00 daily Take release in tablet addition to 90 mg to make 120 mg daily. 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 release tablet NIFEdipine Yes Essential 30mg QD Take 1 [facility] (PROCARDIA 4-06 hypertensio tablet by [facility]) 30 mg 00:00: n, benign mouth extended 00 daily Take release in tablet addition to 90 mg to make 120 mg daily. 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 release tablet NIFEdipine Yes Essential 30mg QD Take 1 [facility] (PROCARDIA 4-06 hypertensio tablet by [facility]) 30 mg 00:00: n, benign mouth extended 00 daily Take release in tablet addition to 90 mg to make 120 mg daily. 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 release tablet NIFEdipine Yes Essential 30mg QD Take 1 [facility] (PROCARDIA 4-06 hypertensio tablet by [facility]) 30 mg 00:00: n, benign mouth extended 00 daily Take release in tablet addition to 90 mg to make 120 mg daily. metFORMIN Yes Type 2 1000mg Take 2 [facility] (GLUCOPHAGE 4-06 diabetes tablets by [facility] ) 500 mg 00:00: mellitus mouth 2 tablet 00 with times diabetic daily nephropathy (with , meals) unspecified Increased jail dose. insulin use status NIFEdipine Yes Essential 90mg QD Take 1 [facility] (PROCARDIA 4-06 hypertensio tablet by [facility]) 90 mg 00:00: n, benign mouth extended 00 daily. release tablet NIFEdipine 0 Yes Essential 30mg QD Take 1 [facility] (PROCARDIA 4-06 hypertensio tablet by [facility]) 30 mg 00:00: n, benign mouth extended 00 daily Take release in tablet addition to 90 mg to make 120 mg daily. metFORMIN 2017-0 Yes Type 2 1000mg Take 2 [facility] (GLUCOPHAGE 4-06 diabetes tablets by [facility] ) 500 mg 00:00: mellitus mouth 2 tablet 00 with times diabetic daily nephropathy (with , meals) unspecified Increased jail dose. insulin use status NIFEdipine Yes Essential 90mg QD Take 1 [facility] (PROCARDIA 4-06 hypertensio tablet by [facility] XL) 90 mg 00:00: n, benign mouth extended 00 daily. release tablet NIFEdipine Yes Essential 30mg QD Take 1 [facility] (PROCARDIA 4-06 hypertensio tablet by [facility]) 30 mg 00:00: n, benign mouth extended 00 daily Take release in tablet addition to 90 mg to make 120 mg daily. metFORMIN Yes Type 2 1000mg Take 2 [facility] (GLUCOPHAGE 4-06 diabetes tablets by [facility] ) 500 mg 00:00: mellitus mouth 2 tablet 00 with times diabetic daily nephropathy (with , meals) unspecified Increased jail dose. insulin use status NIFEdipine Yes Essential 90mg QD Take 1 [facility] (PROCARDIA 4-06 hypertensio tablet by [facility]) 90 mg 00:00: n, benign mouth extended 00 daily. release tablet NIFEdipine Yes Essential 30mg QD Take 1 [facility] (PROCARDIA 4-06 hypertensio tablet by [facility]) 30 mg 00:00: n, benign mouth extended 00 daily Take release in tablet addition to 90 mg to make 120 mg daily. metFORMIN Yes Type 2 1000mg Q.5D Take 2 [facility] (GLUCOPHAGE 4-06 diabetes tablets by [facility] ) 500 mg 00:00: mellitus mouth 2 tablet 00 with times diabetic daily nephropathy (with , meals) unspecified Increased jail dose. insulin use status NIFEdipine Yes Essential 90mg QD Take 1 [facility] (PROCARDIA 4-06 hypertensio tablet by [facility]) 90 mg 00:00: n, benign mouth extended 00 daily. release tablet NIFEdipine 0 Yes Essential 30mg QD Take 1 [facility] (PROCARDIA 4-06 hypertensio tablet by [facility]) 30 mg 00:00: n, benign mouth extended 00 daily Take release in tablet addition to 90 mg to make 120 mg daily. 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 release tablet NIFEdipine Yes Essential 30mg QD Take 1 [facility] (PROCARDIA 4-06 hypertensio tablet by [facility]) 30 mg 00:00: n, benign mouth extended 00 daily Take release in tablet addition to 90 mg to make 120 mg daily. 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 release tablet NIFEdipine Yes Essential 30mg QD Take 1 [facility] (PROCARDIA 4-06 hypertensio tablet by [facility]) 30 mg 00:00: n, benign mouth extended 00 daily Take release in tablet addition to 90 mg to make 120 mg daily. 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 release tablet NIFEdipine Yes Essential 30mg QD Take 1 [facility] (PROCARDIA 4-06 hypertensio tablet by [facility]) 30 mg 00:00: n, benign mouth extended 00 daily Take release in tablet addition to 90 mg to make 120 mg daily. metFORMIN Yes Type 2 1000mg Take 2 [facility] (GLUCOPHAGE 4-06 diabetes tablets by [facility] ) 500 mg 00:00: mellitus mouth 2 tablet 00 with times diabetic daily nephropathy (with , meals) unspecified Increased jail dose. insulin use status glimepiride Yes Type 2 DM 8mg QD Take 2 [facility] (AMARYL) 4 3-31 with CKD tablets by [facility] mg tablet 00:00: stage 4 and mouth 00 hypertensio every n morning (before breakfast) . lisinopril Yes Essential 40mg QD Take 1 [facility] (ZESTRIL) 06-23 hypertensio tablet by [facility] 40 mg 00:00: n mouth tablet 00 daily. NIFEdipine Yes Essential 30mg QD Take 1 [facility] (PROCARDIA 06-23 hypertensio tablet by [facility] XL) 30 mg 00:00: n mouth extended 00 daily Take release in tablet addition to Nifedipine 90mg to make a total of 120 mg daily. cloNIDine 2016- Yes Essential 1{patch Apply 1 [facility] (CATAPRES-T 06-23 hypertensio } Patch to [facility] TS-3) 0.3 00:00: n skin as mg/24 hr 00 directed patch weekly Switch Clonidine 0.3 mg tablet to [facility] patch. atenolol Yes Essential 100mg QD Take 2 [facility] (TENORMIN) 06-23 hypertensio tablets by [facility] 50 mg 00:00: n mouth tablet 00 daily. furosemide Yes Essential 40mg Take 1 [facility] (LASIX) 40 06-23 hypertensio tablet by [facility] mg tablet 00:00: n mouth 00 every 8 hours If needed you can increase to 2 pills (80mg) every 8 hours. ergocalcife Yes Vitamin D 88365T Take 1 [place] rol 06-23 deficiency capsule by [facility] (VITAMIN 00:00: mouth D2) 50,000 00 weekly. unit capsule hydrALAZINE Yes Essential 100mg Take 1 [facility] (APRESOLINE 06-23 hypertensio tablet by [facility] ) 100 mg 00:00: n mouth 3 tablet 00 times daily. aspirin Yes Essential 81mg QD Chew and [facility] (ASPIRIN) 06-23 hypertensio swallow 1 [facility] 81 mg 00:00: n tablet by chewable 00 mouth tablet daily. pravastatin Yes Dyslipidemi 20mg Take 1 [facility] (PRAVACHOL) 06-23 a tablet by [facility] 20 mg 00:00: mouth at tablet 00 bedtime nightly Decreased dose. glimepiride 2016- Yes Type 2 DM 8mg QD Take 2 [facility] (AMARYL) 4 06-23 with CKD tablets by [facility] mg tablet 00:00: stage 4 and mouth 00 hypertensio every n morning (before breakfast) . lisinopril 2017-0 Yes Essential 40mg QD Take 1 [facility] (ZESTRIL) 06-23 hypertensio tablet by [facility] 40 mg 00:00: n mouth tablet 00 daily. NIFEdipine Yes Essential 30mg QD Take 1 [facility] (PROCARDIA 06-23 hypertensio tablet by [facility] XL) 30 mg 00:00: n mouth extended 00 daily Take release in tablet addition to Nifedipine 90mg to make a total of 120 mg daily. cloNIDine 2017- Yes Essential 1{patch Apply 1 [facility] (CATAPRES-T 06-23 hypertensio } Patch to [facility] TS-3) 0.3 00:00: n skin as mg/24 hr 00 directed patch weekly Switch Clonidine 0.3 mg tablet to [facility] patch. atenolol Yes Essential 100mg QD Take 2 [facility] (TENORMIN) 06-23 hypertensio tablets by [facility] 50 mg 00:00: n mouth tablet 00 daily. furosemide 2016- Yes Essential 40mg Take 1 [facility] (LASIX) 40 06-23 hypertensio tablet by [facility] mg tablet 00:00: n mouth 00 every 8 hours If needed you can increase to 2 pills (80mg) every 8 hours. ergocalcife Yes Vitamin D [id number] Take 1 [place] rol 06-23 deficiency capsule by [facility] (VITAMIN 00:00: mouth D2) 50,000 00 weekly. unit capsule hydrALAZINE Yes Essential 100mg Take 1 [facility] (APRESOLINE 06-23 hypertensio tablet by [facility] ) 100 mg 00:00: n mouth 3 tablet 00 times daily. aspirin 2017- Yes Essential 81mg QD Chew and H [facility] (ASPIRIN) 06-23 hypertensio swallow 1 [facility] 81 mg 00:00: n tablet by chewable 00 mouth tablet daily. pravastatin Yes Dyslipidemi 20mg Take 1 [facility] (PRAVACHOL) 06-23 a tablet by [facility] 20 mg 00:00: mouth at tablet 00 bedtime nightly Decreased dose. glimepiride 2016- Yes Type 2 DM 8mg QD Take 2 [facility] (AMARYL) 4 06-23 with CKD tablets by [facility] mg tablet 00:00: stage 4 and mouth 00 hypertensio every n morning (before breakfast) . lisinopril 2017 Yes Essential 40mg QD Take 1 [facility] (ZESTRIL) 06-23 hypertensio tablet by [facility] 40 mg 00:00: n mouth tablet 00 daily. NIFEdipine Yes Essential 30mg QD Take 1 [facility] (PROCARDIA 06-23 hypertensio tablet by [facility] XL) 30 mg 00:00: n mouth extended 00 daily Take release in tablet addition to Nifedipine 90mg to make a total of 120 mg daily. cloNIDine Yes Essential 1{patch Apply 1 [facility] (CATAPRES-T 06-23 hypertensio } Patch to [facility] TS-3) 0.3 00:00: n skin as mg/24 hr 00 directed patch weekly Switch Clonidine 0.3 mg tablet to [facility] patch. atenolol Yes Essential 100mg QD Take 2 [facility] (TENORMIN) 06-23 hypertensio tablets by [facility] 50 mg 00:00: n mouth tablet 00 daily. furosemide Yes Essential 40mg Take 1 [place] (LASIX) 40 06-23 hypertensio tablet by [facility] mg tablet 00:00: n mouth 00 every 8 hours If needed you can increase to 2 pills (80mg) every 8 hours. ergocalcife Yes Vitamin D [id number] Take 1 [place] rol 06-23 deficiency capsule by [facility] (VITAMIN 00:00: mouth D2) 50,000 00 weekly. unit capsule hydrALAZINE Yes Essential 100mg Take 1 [place] (APRESOLINE 06-23 hypertensio tablet by [facility] ) 100 mg 00:00: n mouth 3 tablet 00 times daily. aspirin Yes Essential 81mg QD Chew and H [facility] (ASPIRIN) 06-23 hypertensio swallow 1 [facility] 81 mg 00:00: n tablet by chewable 00 mouth tablet daily. pravastatin Yes Dyslipidemi 20mg Take 1 [place] (PRAVACHOL) 06-23 a tablet by [facility] 20 mg 00:00: mouth at tablet 00 bedtime nightly Decreased dose. glimepiride Yes Type 2 DM 8mg QD Take 2 [facility] (AMARYL) 4 06-23 with CKD tablets by [facility] mg tablet 00:00: stage 4 and mouth 00 hypertensio every n morning (before breakfast) . lisinopril Yes Essential 40mg QD Take 1 [place] (ZESTRIL) 06-23 hypertensio tablet by [facility] 40 mg 00:00: n mouth tablet 00 daily. NIFEdipine Yes Essential 30mg QD Take 1 [facility] (PROCARDIA 3-31 hypertensio tablet by [facility] XL) 30 mg 00:00: n mouth extended 00 daily Take release in tablet addition to Nifedipine 90mg to make a total of 120 mg daily. cloNIDine Yes Essential 1{patch Apply 1 [facility] (CATAPRES-T 06-23 hypertensio } Patch to [facility] TS-3) 0.3 00:00: n skin as mg/24 hr 00 directed patch weekly Switch Clonidine 0.3 mg tablet to [facility] patch. atenolol Yes Essential 100mg QD Take 2 [facility] (TENORMIN) 3- hypertensio tablets by [facility] 50 mg 00:00: n mouth tablet 00 daily. furosemide Yes Essential 40mg Take 1 [facility] (LASIX) 40 06-23 hypertensio tablet by [facility] mg tablet 00:00: n mouth 00 every 8 hours If needed you can increase to 2 pills (80mg) every 8 hours. ergocalcife Yes Vitamin D 44895P Take 1 [facility] 06-23 deficiency capsule by [facility] (VITAMIN 00:00: mouth D2) 50,000 00 weekly. unit capsule hydrALAZINE Yes Essential 100mg Take 1 [facility] (APRESOLINE 06-23 hypertensio tablet by [facility] ) 100 mg 00:00: n mouth 3 tablet 00 times daily. aspirin Yes Essential 81mg QD Chew and [facility] (ASPIRIN) 06-23 hypertensio swallow 1 [facility] 81 mg 00:00: n tablet by chewable 00 mouth tablet daily. pravastatin Yes Dyslipidemi 20mg Take 1 [facility] (PRAVACHOL) 3 a tablet by [facility] 20 mg 00:00: mouth at tablet 00 bedtime nightly Decreased dose. glimepiride Yes Type 2 DM 8mg QD Take 2 [facility] (AMARYL) 4 331 with CKD tablets by [facility] mg tablet 00:00: stage 4 and mouth 00 hypertensio every n morning (before breakfast) . lisinopril Yes Essential 40mg QD Take 1 [facility] (ZESTRIL) 3- hypertensio tablet by [facility] 40 mg 00:00: n mouth tablet 00 daily. NIFEdipine Yes Essential 30mg QD Take 1 [facility] (PROCARDIA 3-31 hypertensio tablet by [facility] XL) 30 mg 00:00: n mouth extended 00 daily Take release in tablet addition to Nifedipine 90mg to make a total of 120 mg daily. cloNIDine Yes Essential 1{patch Apply 1 [facility] (CATAPRES-T - hypertensio } Patch to [facility] TS-3) 0.3 00:00: n skin as mg/24 hr 00 directed patch weekly Switch Clonidine 0.3 mg tablet to [facility] patch. atenolol Yes Essential 100mg QD Take 2 [facility] (TENORMIN) 06-23 hypertensio tablets by [facility] 50 mg 00:00: n mouth tablet 00 daily. furosemide Yes Essential 40mg Take 1 [facility] (LASIX) 40 06-23 hypertensio tablet by [facility] mg tablet 00:00: n mouth 00 every 8 hours If needed you can increase to 2 pills (80mg) every 8 hours. ergocalcife Yes Vitamin D 45352H Take 1 [place] rol 06-23 deficiency capsule by [facility] (VITAMIN 00:00: mouth D2) 50,000 00 weekly. unit capsule hydrALAZINE Yes Essential 100mg Take 1 [facility] (APRESOLINE 06-23 hypertensio tablet by [facility] ) 100 mg 00:00: n mouth 3 tablet 00 times daily. aspirin Yes Essential 81mg QD Chew and [facility] (ASPIRIN) 06-23 hypertensio swallow 1 [facility] 81 mg 00:00: n tablet by chewable 00 mouth tablet daily. pravastatin Yes Dyslipidemi 20mg Take 1 [place] (PRAVACHOL) 06-23 a tablet by [facility] 20 mg 00:00: mouth at tablet 00 bedtime nightly Decreased dose. glimepiride Yes Type 2 DM 8mg QD Take 2 [facility] (AMARYL) 4 06-23 with CKD tablets by [facility] mg tablet 00:00: stage 4 and mouth 00 hypertensio every n morning (before breakfast) . lisinopril Yes Essential 40mg QD Take 1 [facility] (ZESTRIL) 06-23 hypertensio tablet by [facility] 40 mg 00:00: n mouth tablet 00 daily. NIFEdipine Yes Essential 30mg QD Take 1 [facility] (PROCARDIA -31 hypertensio tablet by [facility] XL) 30 mg 00:00: n mouth extended 00 daily Take release in tablet addition to Nifedipine 90mg to make a total of 120 mg daily. cloNIDine Yes Essential 1{patch Apply 1 [facility] (CATAPRES-T 06-23 hypertensio } Patch to [facility] TS-3) 0.3 00:00: n skin as mg/24 hr 00 directed patch weekly Switch Clonidine 0.3 mg tablet to [facility] patch. atenolol Yes Essential 100mg QD Take 2 [facility] (TENORMIN) 06-23 hypertensio tablets by [facility] 50 mg 00:00: n mouth tablet 00 daily. furosemide Yes Essential 40mg Take 1 [facility] (LASIX) 40 06-23 hypertensio tablet by [facility] mg tablet 00:00: n mouth 00 every 8 hours If needed you can increase to 2 pills (80mg) every 8 hours. ergocalcife Yes Vitamin D [id number] Take 1 [place] rol 06-23 deficiency capsule by [facility] (VITAMIN 00:00: mouth D2) 50,000 00 weekly. unit capsule hydrALAZINE Yes Essential 100mg Take 1 [facility] (APRESOLINE 06-23 hypertensio tablet by [facility] ) 100 mg 00:00: n mouth 3 tablet 00 times daily. aspirin Yes Essential 81mg QD Chew and [facility] (ASPIRIN) 06-23 hypertensio swallow 1 [facility] 81 mg 00:00: n tablet by chewable 00 mouth tablet daily. pravastatin Yes Dyslipidemi 20mg Take 1 [facility] (PRAVACHOL) 06-23 a tablet by [facility] 20 mg 00:00: mouth at tablet 00 bedtime nightly Decreased dose. glimepiride Yes Type 2 DM 8mg QD Take 2 [facility] (AMARYL) 4 06-23 with CKD tablets by [facility] mg tablet 00:00: stage 4 and mouth 00 hypertensio every n morning (before breakfast) . lisinopril Yes Essential 40mg QD Take 1 [facility] (ZESTRIL) 3 hypertensio tablet by [facility] 40 mg 00:00: n mouth tablet 00 daily. NIFEdipine Yes Essential 30mg QD Take 1 [facility] (PROCARDIA -31 hypertensio tablet by [facility] XL) 30 mg 00:00: n mouth extended 00 daily Take release in tablet addition to Nifedipine 90mg to make a total of 120 mg daily. cloNIDine Yes Essential 1{patch Apply 1 [facility] (CATAPRES-T 06-23 hypertensio } Patch to [facility] TS-3) 0.3 00:00: n skin as mg/24 hr 00 directed patch weekly Switch Clonidine 0.3 mg tablet to [facility] patch. atenolol Yes Essential 100mg QD Take 2 [facility] (TENORMIN) 06-23 hypertensio tablets by [facility] 50 mg 00:00: n mouth tablet 00 daily. furosemide Yes Essential 40mg Take 1 [facility] (LASIX) 40 06-23 hypertensio tablet by [facility] mg tablet 00:00: n mouth 00 every 8 hours If needed you can increase to 2 pills (80mg) every 8 hours. ergocalcife Yes Vitamin D 34935K Take 1 [place] [facility] 06-23 deficiency capsule by [facility] (VITAMIN 00:00: mouth D2) 50,000 00 weekly. unit capsule hydrALAZINE Yes Essential 100mg Take 1 [facility] (APRESOLINE 06-23 hypertensio tablet by [facility] ) 100 mg 00:00: n mouth 3 tablet 00 times daily. aspirin Yes Essential 81mg QD Chew and [facility] (ASPIRIN) 06-23 hypertensio swallow 1 [facility] 81 mg 00:00: n tablet by chewable 00 mouth tablet daily. pravastatin Yes Dyslipidemi 20mg Take 1 [facility] (PRAVACHOL) 06-23 a tablet by [facility] 20 mg 00:00: mouth at tablet 00 bedtime nightly Decreased dose. glimepiride Yes Type 2 DM 8mg QD Take 2 [facility] (AMARYL) 4 06-23 with CKD tablets by [facility] mg tablet 00:00: stage 4 and mouth 00 hypertensio every n morning (before breakfast) . lisinopril Yes Essential 40mg QD Take 1 [facility] (ZESTRIL) 06-23 hypertensio tablet by [facility] 40 mg 00:00: n mouth tablet 00 daily. NIFEdipine Yes Essential 30mg QD Take 1 [facility] (PROCARDIA 06-23 hypertensio tablet by [facility] XL) 30 mg 00:00: n mouth extended 00 daily Take release in tablet addition to Nifedipine 90mg to make a total of 120 mg daily. cloNIDine Yes Essential 1{patch Apply 1 [facility] (CATAPRES-T 3 hypertensio } Patch to [facility] TS-3) 0.3 00:00: n skin as mg/24 hr 00 directed patch weekly Switch Clonidine 0.3 mg tablet to [facility] patch. atenolol Yes Essential 100mg QD Take 2 [facility] (TENORMIN) 06-23 hypertensio tablets by [facility] 50 mg 00:00: n mouth tablet 00 daily. furosemide Yes Essential 40mg Take 1 [facility] (LASIX) 40 06-23 hypertensio tablet by [facility] mg tablet 00:00: n mouth 00 every 8 hours If needed you can increase to 2 pills (80mg) every 8 hours. ergocalcife Yes Vitamin D 13455Q Take 1 [place] [facility] 06-23 deficiency capsule by [facility] (VITAMIN 00:00: mouth D2) 50,000 00 weekly. unit capsule hydrALAZINE Yes Essential 100mg Take 1 [facility] (APRESOLINE 06-23 hypertensio tablet by [facility] ) 100 mg 00:00: n mouth 3 tablet 00 times daily. aspirin Yes Essential 81mg QD Chew and [facility] (ASPIRIN) 06-23 hypertensio swallow 1 [facility] 81 mg 00:00: n tablet by chewable 00 mouth tablet daily. pravastatin Yes Dyslipidemi 20mg Take 1 [facility] (PRAVACHOL) 06-23 a tablet by [facility] 20 mg 00:00: mouth at tablet 00 bedtime nightly Decreased dose. glimepiride Yes Type 2 DM 8mg QD Take 2 [facility] (AMARYL) 4 06-23 with CKD tablets by [facility] mg tablet 00:00: stage 4 and mouth 00 hypertensio every n morning (before breakfast) . lisinopril Yes Essential 40mg QD Take 1 [facility] (ZESTRIL) 06-23 hypertensio tablet by [facility] 40 mg 00:00: n mouth tablet 00 daily. NIFEdipine Yes Essential 30mg QD Take 1 [facility] (PROCARDIA 31 hypertensio tablet by [facility] XL) 30 mg 00:00: n mouth extended 00 daily Take release in tablet addition to Nifedipine 90mg to make a total of 120 mg daily. cloNIDine Yes Essential 1{patch Apply 1 [facility] (CATAPRES-T 3-31 hypertensio } Patch to [facility] TS-3) 0.3 00:00: n skin as mg/24 hr 00 directed patch weekly Switch Clonidine 0.3 mg tablet to [facility] patch. atenolol Yes Essential 100mg QD Take 2 [facility] (TENORMIN) 3-31 hypertensio tablets by [facility] 50 mg 00:00: n mouth tablet 00 daily. furosemide Yes Essential 40mg Take 1 [facility] (LASIX) 40 3-31 hypertensio tablet by [facility] mg tablet 00:00: n mouth 00 every 8 hours If needed you can increase to 2 pills (80mg) every 8 hours. atenolol Yes Essential 100mg QD Take 2 [facility] (TENORMIN) 3-31 hypertensio tablets by [facility] 50 mg 00:00: n mouth tablet 00 daily. furosemide Yes Essential 40mg Take 1 [facility] (LASIX) 40 3-31 hypertensio tablet by [facility] mg tablet 00:00: n mouth 00 every 8 hours If needed you can increase to 2 pills (80mg) every 8 hours. ergocalcife Yes Vitamin D 70223V Take 1 [facility] 331 deficiency capsule by [facility] (VITAMIN 00:00: mouth D2) 50,000 00 weekly. unit capsule hydrALAZINE Yes Essential 100mg Take 1 [facility] (APRESOLINE 3- hypertensio tablet by [facility] ) 100 mg 00:00: n mouth 3 tablet 00 times daily. aspirin Yes Essential 81mg QD Chew and [facility] (ASPIRIN) 3 hypertensio swallow 1 [facility] 81 mg 00:00: n tablet by chewable 00 mouth tablet daily. ergocalcife Yes Vitamin D [id number] Take 1 [facility] 3-31 deficiency capsule by [facility] (VITAMIN 00:00: mouth D2) 50,000 00 weekly. unit capsule pravastatin Yes Dyslipidemi 20mg Take 1 [facility] (PRAVACHOL) 3 a tablet by [facility] 20 mg 00:00: mouth at tablet 00 bedtime nightly Decreased dose. glimepiride Yes Type 2 DM 8mg QD Take 2 [facility] (AMARYL) 4 3-31 with CKD tablets by [facility] mg tablet 00:00: stage 4 and mouth 00 hypertensio every n morning (before breakfast) . lisinopril Yes Essential 40mg QD Take 1 [facility] (ZESTRIL) 3-31 hypertensio tablet by [facility] 40 mg 00:00: n mouth tablet 00 daily. NIFEdipine Yes Essential 30mg QD Take 1 [facility] (PROCARDIA 3-31 hypertensio tablet by [facility] XL) 30 mg 00:00: n mouth extended 00 daily Take release in tablet addition to Nifedipine 90mg to make a total of 120 mg daily. cloNIDine Yes Essential 1{patch Apply 1 [facility] (CATAPRES-T 3-31 hypertensio } Patch to [facility] TS-3) 0.3 00:00: n skin as mg/24 hr 00 directed patch weekly Switch Clonidine 0.3 mg tablet to Catapres patch. hydrALAZINE Yes Essential 100mg Take 1 [facility] (APRESOLINE 3-31 hypertensio tablet by [facility] ) 100 mg 00:00: n mouth 3 tablet 00 times daily. aspirin Yes Essential 81mg QD Chew and H arris (ASPIRIN) 06-23 hypertensio swallow 1 [facility] 81 mg 00:00: n tablet by chewable 00 mouth tablet daily. pravastatin Yes Dyslipidemi 20mg Take 1 [facility] (PRAVACHOL) 331 a tablet by [facility] 20 mg 00:00: mouth at tablet 00 bedtime nightly Decreased dose. glimepiride Yes Type 2 DM 8mg QD Take 2 [facility] (AMARYL) 4 31 with CKD tablets by [facility] mg tablet 00:00: stage 4 and mouth 00 hypertensio every n morning (before breakfast) . lisinopril Yes Essential 40mg QD Take 1 [facility] (ZESTRIL) 3-31 hypertensio tablet by [facility] 40 mg 00:00: n mouth tablet 00 daily. NIFEdipine Yes Essential 30mg QD Take 1 [facility] (PROCARDIA 3-31 hypertensio tablet by [facility]) 30 mg 00:00: n mouth extended 00 daily Take release in tablet addition to Nifedipine 90mg to make a total of 120 mg daily. cloNIDine Yes Essential 1{patch Apply 1 [facility] (CATAPRES-T 3-31 hypertensio } Patch to [facility] TS-3) 0.3 00:00: n skin as mg/24 hr 00 directed patch weekly Switch Clonidine 0.3 mg tablet to Catapres patch. atenolol Yes Essential 100mg QD Take 2 H arris (TENORMIN) 06-23 hypertensio tablets by [facility] 50 mg 00:00: n mouth tablet 00 daily. furosemide Yes Essential 40mg Take 1 [facility] (LASIX) 40 06-23 hypertensio tablet by [facility] mg tablet 00:00: n mouth 00 every 8 hours If needed you can increase to 2 pills (80mg) every 8 hours. ergocalcife Yes Vitamin D 31822L Take 1 [place] rol 06-23 deficiency capsule by [facility] (VITAMIN 00:00: mouth D2) 50,000 00 weekly. unit capsule hydrALAZINE Yes Essential 100mg Take 1 [facility] (APRESOLINE 06-23 hypertensio tablet by [facility] ) 100 mg 00:00: n mouth 3 tablet 00 times daily. aspirin Yes Essential 81mg QD Chew and H arris (ASPIRIN) 06-23 hypertensio swallow 1 [facility] 81 mg 00:00: n tablet by chewable 00 mouth tablet daily. pravastatin Yes Dyslipidemi 20mg Take 1 [facility] (PRAVACHOL) 06-23 a tablet by [facility] 20 mg 00:00: mouth at tablet 00 bedtime nightly Decreased dose. glimepiride Yes Type 2 DM 8mg QD Take 2 [facility] (AMARYL) 4 06-23 with CKD tablets by [facility] mg tablet 00:00: stage 4 and mouth 00 hypertensio every n morning (before breakfast) . lisinopril Yes Essential 40mg QD Take 1 [facility] (ZESTRIL) 06-23 hypertensio tablet by [facility] 40 mg 00:00: n mouth tablet 00 daily. NIFEdipine Yes Essential 30mg QD Take 1 [facility] (PROCARDIA 06-23 hypertensio tablet by [facility] XL) 30 mg 00:00: n mouth extended 00 daily Take release in tablet addition to Nifedipine 90mg to make a total of 120 mg daily. cloNIDine Yes Essential 1{patch Apply 1 [facility] (CATAPRES-T 06-23 hypertensio } Patch to [facility] TS-3) 0.3 00:00: n skin as mg/24 hr 00 directed patch weekly Switch Clonidine 0.3 mg tablet to Catapres patch. atenolol Yes Essential 100mg QD Take 2 H arris (TENORMIN) 06-23 hypertensio tablets by [facility] 50 mg 00:00: n mouth tablet 00 daily. furosemide Yes Essential 40mg Take 1 [facility] (LASIX) 40 06-23 hypertensio tablet by [facility] mg tablet 00:00: n mouth 00 every 8 hours If needed you can increase to 2 pills (80mg) every 8 hours. ergocalcife Yes Vitamin D 40962Y Take 1 [place] rol 06-23 deficiency capsule by [facility] (VITAMIN 00:00: mouth D2) 50,000 00 weekly. unit capsule hydrALAZINE Yes Essential 100mg Take 1 [place] (APRESOLINE 06-23 hypertensio tablet by [facility] ) 100 mg 00:00: n mouth 3 tablet 00 times daily. aspirin Yes Essential 81mg QD Chew and H arris (ASPIRIN) 06-23 hypertensio swallow 1 [facility] 81 mg 00:00: n tablet by chewable 00 mouth tablet daily. pravastatin Yes Dyslipidemi 20mg Take 1 [place] (PRAVACHOL) 06-23 a tablet by [facility] 20 mg 00:00: mouth at tablet 00 bedtime nightly Decreased dose. glimepiride Yes Type 2 DM 8mg QD Take 2 [facility] (AMARYL) 4 06-23 with CKD tablets by [facility] mg tablet 00:00: stage 4 and mouth 00 hypertensio every n morning (before breakfast) . lisinopril Yes Essential 40mg QD Take 1 [facility] (ZESTRIL) 06-23 hypertensio tablet by [facility] 40 mg 00:00: n mouth tablet 00 daily. NIFEdipine Yes Essential 30mg QD Take 1 [facility] (PROCARDIA 06-23 hypertensio tablet by [facility] XL) 30 mg 00:00: n mouth extended 00 daily Take release in tablet addition to Nifedipine 90mg to make a total of 120 mg daily. cloNIDine Yes Essential 1{patch Apply 1 [facility] (CATAPRES-T 06-23 hypertensio } Patch to [facility] TS-3) 0.3 00:00: n skin as mg/24 hr 00 directed patch weekly Switch Clonidine 0.3 mg tablet to Catapres patch. atenolol Yes Essential 100mg QD Take 2 H arris (TENORMIN) 06-23 hypertensio tablets by [facility] 50 mg 00:00: n mouth tablet 00 daily. furosemide Yes Essential 40mg Take 1 [facility] (LASIX) 40 - hypertensio tablet by [facility] mg tablet 00:00: n mouth 00 every 8 hours If needed you can increase to 2 pills (80mg) every 8 hours. ergocalcife Yes Vitamin D 97174P Take 1 [place] rol 06-23 deficiency capsule by [facility] (VITAMIN 00:00: mouth D2) 50,000 00 weekly. unit capsule hydrALAZINE Yes Essential 100mg Take 1 [place] (APRESOLINE 06-23 hypertensio tablet by [facility] ) 100 mg 00:00: n mouth 3 tablet 00 times daily. aspirin Yes Essential 81mg QD Chew and H arris (ASPIRIN) 06-23 hypertensio swallow 1 [facility] 81 mg 00:00: n tablet by chewable 00 mouth tablet daily. pravastatin Yes Dyslipidemi 20mg Take 1 [place] (PRAVACHOL) 06-23 a tablet by [facility] 20 mg 00:00: mouth at tablet 00 bedtime nightly Decreased dose. minoxidil Yes Essential 1.25mg Take 0.5 [facility] (LONITEN) 1-27 hypertensio tablets by [facility] 2.5 mg 00:00: n mouth tablet 00 every 8 hours. minoxidil Yes Essential 1.25mg Take 0.5 [facility] (LONITEN) 1-27 hypertensio tablets by [facility] 2.5 mg 00:00: n mouth tablet 00 every 8 hours. minoxidil Yes Essential 1.25mg Take 0.5 [facility] (LONITEN) 1-27 hypertensio tablets by [facility] 2.5 mg 00:00: n mouth tablet 00 every 8 hours. minoxidil Yes Essential 1.25mg Take 0.5 [facility] (LONITEN) 1-27 hypertensio tablets by [facility] 2.5 mg 00:00: n mouth tablet 00 every 8 hours. minoxidil Yes Essential 1.25mg Take 0.5 [facility] (LONITEN) 1-27 hypertensio tablets by [facility] 2.5 mg 00:00: n mouth tablet 00 every 8 hours. minoxidil Yes Essential 1.25mg Take 0.5 [facility] (LONITEN) 1-27 hypertensio tablets by [facility] 2.5 mg 00:00: n mouth tablet 00 every 8 hours. minoxidil Yes Essential 1.25mg Take 0.5 [facility] (LONITEN) 1-27 hypertensio tablets by [facility] 2.5 mg 00:00: n mouth tablet 00 every 8 hours. minoxidil Yes Essential 1.25mg Take 0.5 [facility] (LONITEN) 1-27 hypertensio tablets by [facility] 2.5 mg 00:00: n mouth tablet 00 every 8 hours. minoxidil Yes Essential 1.25mg Take 0.5 [facility] (LONITEN) 1-27 hypertensio tablets by [facility] 2.5 mg 00:00: n mouth tablet 00 every 8 hours. minoxidil Yes Essential 1.25mg Take 0.5 [facility] (LONITEN) 1-27 hypertensio tablets by [facility] 2.5 mg 00:00: n mouth tablet 00 every 8 hours. minoxidil Yes Essential 1.25mg Take 0.5 [facility] (LONITEN) 1-27 hypertensio tablets by [facility] 2.5 mg 00:00: n mouth tablet 00 every 8 hours. minoxidil Yes Essential 1.25mg Take 0.5 [facility] (LONITEN) 1-27 hypertensio tablets by [facility] 2.5 mg 00:00: n mouth tablet 00 every 8 hours. minoxidil Yes Essential 1.25mg Take 0.5 [facility] (LONITEN) 1-27 hypertensio tablets by [facility] 2.5 mg 00:00: n mouth tablet 00 every 8 hours. furosemide Yes CKD 40mg Q.5D Take 1 [facility] (LASIX) 40 - (chronic tablet by [facility] mg tablet 00:00: kidney mouth 2 00 disease), times stage 3 daily. (moderate) potassium Yes Essential 10meq QD Take 1 [place] chloride 1-23 hypertensio tablet by [facility] (KLOR-CON 00:00: n, benign mouth M10) 10 mEq 00 daily Take extended only with release lasix. tablet furosemide Yes CKD 40mg Q.5D Take 1 [facility] (LASIX) 40 1-23 (chronic tablet by [facility] mg tablet 00:00: kidney mouth 2 00 [...] extended only with release lasix. tablet furosemide 2016-0 Yes CKD 40mg Q.5D Take 1 [facility] (LASIX) 40 1-23 (chronic tablet by [facility] mg tablet 00:00: kidney mouth 2 00 disease), times stage 3 daily. (moderate) potassium 2017-0 Yes Essential 10meq QD Take 1 [facility] chloride 1-23 hypertensio tablet by [facility] (KLOR-CON 00:00: n, benign mouth M10) 10 mEq 00 daily Take extended only with release lasix. tablet furosemide 2016-0 Yes CKD 40mg Q.5D Take 1 Harri [...] s (LASIX) 40 1-23 (chronic tablet by [facility] mg tablet 00:00: kidney mouth 2 00 disease), times stage 3 daily. (moderate) potassium Yes Essential 10meq QD Take 1 [facility] chloride 1-23 hypertensio tablet by [facility] (KLOR-CON 00:00: n, benign mouth M10) 10 mEq 00 daily Take extended only with release lasix. tablet furosemide Yes CKD 40mg Q.5D Take 1 [facility] (LASIX) 40 1-23 (chronic tablet by [facility] mg tablet 00:00: kidney mouth 2 00 disease), times stage 3 daily. (moderate) potassium Yes Essential 10meq QD Take 1 [facility] chloride 1-23 hypertensio tablet by [facility] (KLOR-CON 00:00: n, benign mouth M10) 10 mEq 00 daily Take extended only with release lasix. tablet cloNIDine 2015-03 Yes Essential .1mg Take 1 H arris HCl 0-28 hypertensio tablet by [facility] (CATAPRES) 00:00: n, benign mouth 3 0.1 mg 00 times tablet daily. cloNIDine 2015-03 Yes Essential .1mg Take 1 H arris HCl 0-28 hypertensio tablet by [facility] (CATAPRES) 00:00: n, benign mouth 3 0.1 mg 00 times tablet daily. cloNIDine 2015-03 Yes Essential .1mg Take 1 H arris HCl 0-28 hypertensio tablet by [facility] (CATAPRES) 00:00: n, benign mouth 3 0.1 mg 00 times tablet daily. cloNIDine 2015-03 Yes Essential .1mg Take 1 H arris HCl 0-28 hypertensio tablet by [facility] (CATAPRES) 00:00: n, benign mouth 3 0.1 mg 00 times tablet daily. cloNIDine 2015-03 Yes Essential .1mg Take 1 H arris HCl 0-28 hypertensio tablet by [facility] (CATAPRES) 00:00: n, benign mouth 3 0.1 mg 00 times tablet daily. cloNIDine 2015-03 Yes Essential .1mg Take 1 H arris HCl 0-28 hypertensio tablet by [facility] (CATAPRES) 00:00: n, benign mouth 3 0.1 mg 00 times tablet daily. cloNIDine 2015-03 Yes Essential .1mg Take 1 H arris HCl 0-28 hypertensio tablet by [facility] (CATAPRES) 00:00: n, benign mouth 3 0.1 mg 00 times tablet daily. cloNIDine 2015-03 Yes Essential .1mg Take 1 H arr[place] HCl 0-28 hypertensio tablet by [facility] (CATAPRES) 00:00: n, benign mouth 3 0.1 mg 00 times tablet daily. cloNIDine 2015-03 Yes Essential .1mg Take 1 H arris HCl 0-28 hypertensio tablet by [facility] (CATAPRES) 00:00: n, benign mouth 3 0.1 mg 00 times tablet daily. cloNIDine 2015-03 Yes Essential .1mg Take 1 H arris HCl 0-28 hypertensio tablet by [facility] (CATAPRES) 00:00: n, benign mouth 3 0.1 mg 00 times tablet daily. cloNIDine 2015-03 Yes Essential .1mg Take 1 H arris HCl 0-28 hypertensio tablet by [facility] (CATAPRES) 00:00: n, benign mouth 3 0.1 mg 00 times tablet daily. cloNIDine 2015-03 Yes Essential .1mg Take 1 H arris HCl 0-28 hypertensio tablet by [facility] (CATAPRES) 00:00: n, benign mouth 3 0.1 mg 00 times tablet daily. cloNIDine 2015-03 Yes Essential .1mg Take 1 H arris HCl 0-28 hypertensio tablet by [facility] (CATAPRES) 00:00: n, benign mouth 3 0.1 mg 00 times tablet daily. cloNIDine Yes Essential .3mg Take 1 H arris HCl 9-19 hypertensio tablet by [facility] (CATAPRES) 00:00: n, benign mouth 3 0.3 mg 00 times tablet daily Increased dose. cloNIDine Yes Essential .3mg Take 1 H arris HCl 9-19 hypertensio tablet by [facility] (CATAPRES) 00:00: n, benign mouth 3 0.3 mg 00 times tablet daily Increased dose. cloNIDine Yes Essential .3mg Take 1 H arris HCl 9-19 hypertensio tablet by [facility] (CATAPRES) 00:00: n, benign mouth 3 0.3 mg 00 times tablet daily Increased dose. cloNIDine Yes Essential .3mg Take 1 H arris HCl 9-19 hypertensio tablet by [facility] (CATAPRES) 00:00: n, benign mouth 3 0.3 mg 00 times tablet daily Increased dose. cloNIDine 2016-0 Yes Essential .3mg Take 1 H arris HCl 9-19 hypertensio tablet by [facility] (CATAPRES) 00:00: n, benign mouth 3 0.3 mg 00 times tablet daily Increased dose. cloNIDine 2016-0 Yes Essential .3mg Take 1 H arris HCl 9-19 hypertensio tablet by [facility] (CATAPRES) 00:00: n, benign mouth 3 0.3 mg 00 times tablet daily Increased dose. cloNIDine 2016-0 Yes Essential .3mg Take 1 H arris HCl 9-19 hypertensio tablet by [facility] (CATAPRES) 00:00: n, benign mouth 3 0.3 mg 00 times tablet daily Increased dose. cloNIDine 2016-0 Yes Essential .3mg Take 1 H arris HCl 9-19 hypertensio tablet by [facility] (CATAPRES) 00:00: n, benign mouth 3 0.3 mg 00 times tablet daily Increased dose. cloNIDine 2016-0 Yes Essential .3mg Take 1 H arris HCl 9-19 hypertensio tablet by [facility] (CATAPRES) 00:00: n, benign mouth 3 0.3 mg 00 times tablet daily Increased dose. cloNIDine 2016-0 Yes Essential .3mg Take 1 H arris HCl 9-19 hypertensio tablet by [facility] (CATAPRES) 00:00: n, benign mouth 3 0.3 mg 00 times tablet daily Increased dose. cloNIDine 2016-0 Yes Essential .3mg Take 1 H arris HCl 9-19 hypertensio tablet by [facility] (CATAPRES) 00:00: n, benign mouth 3 0.3 mg 00 times tablet daily Increased dose. cloNIDine 2016-0 Yes Essential .3mg Take 1 H arris HCl 9-19 hypertensio tablet by [facility] (CATAPRES) 00:00: n, benign mouth 3 0.3 mg 00 times tablet daily Increased dose. cloNIDine 2016-0 Yes Essential .3mg Take 1 H arris HCl 9-19 hypertensio tablet by [facility] (CATAPRES) 00:00: n, benign mouth 3 0.3 mg 00 times tablet daily Increased dose. ergocalcife 2015-0 Yes Vitamin D 20013W Take 1 [facility] rol 3-31 deficiency capsule by [facility] (VITAMIN 00:00: mouth D2) 50,000 00 weekly. unit capsule NIFEdipine 2015-0 Yes Essential 90mg QD Take 1 [facility] (PROCARDIA 3-31 hypertensio tablet by [facility]) 90 mg 00:00: n, benign mouth extended 00 daily release Discontinu tablet e Amlodipine . ergocalcife 2015-0 Yes Vitamin D [id number] Take 1 [facility] rol 3-31 deficiency capsule by [facility] (VITAMIN 00:00: mouth D2) 50,000 00 weekly. unit capsule NIFEdipine 2015-0 Yes Essential 90mg QD Take 1 [facility] (PROCARDIA 3-31 hypertensio tablet by [facility]) 90 mg 00:00: n, benign mouth extended 00 daily release Discontinu tablet e Amlodipine . ergocalcife 2015-0 Yes Vitamin D 30308I Take 1 [facility] rol 3-31 deficiency capsule by [facility] (VITAMIN 00:00: mouth D2) 50,000 00 weekly. unit capsule NIFEdipine 2015-0 Yes Essential 90mg QD Take 1 [facility] (PROCARDIA 3-31 hypertensio tablet by [facility]) 90 mg 00:00: n, benign mouth extended 00 daily release Discontinu tablet e Amlodipine . ergocalcife 2015-0 Yes Vitamin D 47069L Take 1 [facility] rol 3-31 deficiency capsule by [facility] (VITAMIN 00:00: mouth D2) 50,000 00 weekly. unit capsule NIFEdipine 2015-0 Yes Essential 90mg QD Take 1 [facility] (PROCARDIA 3-31 hypertensio tablet by [facility]) 90 mg 00:00: n, benign mouth extended 00 daily release Discontinu tablet e Amlodipine . ergocalcife 2015-0 Yes Vitamin D [id number] Take 1 [facility] rol 3-31 deficiency capsule by [facility] (VITAMIN 00:00: mouth D2) 50,000 00 weekly. unit capsule NIFEdipine 2015-0 Yes Essential 90mg QD Take 1 [facility] (PROCARDIA 3-31 hypertensio tablet by [facility]) 90 mg 00:00: n, benign mouth extended 00 daily release Discontinu tablet e Amlodipine . ergocalcife 2015-0 Yes Vitamin D [id number] Take 1 [place] rol 3-31 deficiency capsule by [facility] (VITAMIN 00:00: mouth D2) 50,000 00 weekly. unit capsule NIFEdipine 2015-0 Yes Essential 90mg QD Take 1 [facility] (PROCARDIA 3-31 hypertensio tablet by [facility]) 90 mg 00:00: n, benign mouth extended 00 daily release Discontinu tablet e Amlodipine . ergocalcife 2015-0 Yes Vitamin D [id number] Take 1 [facility] rol 3-31 deficiency capsule by [facility] (VITAMIN 00:00: mouth D2) 50,000 00 weekly. unit capsule NIFEdipine 2015-0 Yes Essential 90mg QD Take 1 [facility] (PROCARDIA 3-31 hypertensio tablet by [facility]) 90 mg 00:00: n, benign mouth extended 00 daily release Discontinu tablet e Amlodipine . ergocalcife 2015-0 Yes Vitamin D 98197W Take 1 [facility] rol 3-31 deficiency capsule by [facility] (VITAMIN 00:00: mouth D2) 50,000 00 weekly. unit capsule NIFEdipine 0 Yes Essential 90mg QD Take 1 [facility] (PROCARDIA 3-31 hypertensio tablet by [facility]) 90 mg 00:00: n, benign mouth extended 00 daily release Discontinu tablet e Amlodipine . ergocalcife Yes Vitamin D 13589D Take 1 [facility] rol 3-31 deficiency capsule by [facility] (VITAMIN 00:00: mouth D2) 50,000 00 weekly. unit capsule NIFEdipine 2015-0 Yes Essential 90mg QD Take 1 [facility] (PROCARDIA 3-31 hypertensio tablet by [facility]) 90 mg 00:00: n, benign mouth extended 00 daily release Discontinu tablet e Amlodipine . ergocalcife 2015- Yes Vitamin D 59424S Take 1 [facility] rol 3-31 deficiency capsule by [facility] (VITAMIN 00:00: mouth D2) 50,000 00 weekly. unit capsule NIFEdipine 2015-0 Yes Essential 90mg QD Take 1 [facility] (PROCARDIA 3-31 hypertensio tablet by [facility]) 90 mg 00:00: n, benign mouth extended 00 daily release Discontinu tablet e Amlodipine . ergocalcife 2015-0 Yes Vitamin D 42563B Take 1 [facility] rol 3-31 deficiency capsule by [facility] (VITAMIN 00:00: mouth D2) 50,000 00 weekly. unit capsule NIFEdipine 2015-0 Yes Essential 90mg QD Take 1 [facility] (PROCARDIA 3-31 hypertensio tablet by [facility]) 90 mg 00:00: n, benign mouth extended 00 daily release Discontinu tablet e Amlodipine . ergocalcife Yes Vitamin D 55926N Take 1 [facility] rol 3-31 deficiency capsule by [facility] (VITAMIN 00:00: mouth D2) 50,000 00 weekly. unit capsule NIFEdipine Yes Essential 90mg QD Take 1 [facility] (PROCARDIA 3-31 hypertensio tablet by [facility]) 90 mg 00:00: n, benign mouth extended 00 daily release Discontinu tablet e Amlodipine . ergocalcife Yes Vitamin D 65201R Take 1 [facility] rol 3-31 deficiency capsule by [facility] (VITAMIN 00:00: mouth D2) 50,000 00 weekly. [...] mg tablet 00:00: rhinitis mouth 00 daily. valproic valproic No valproic Zeynep via acid [...] A DAY HEMODIALYSI HEMODIALYSI AFTER S ON [facility] S ON [facility] HEMODIALYS IS ON [facility] levetiracet levetiracet No 1000mg Q1D levetirace [...] MWF S ON MWF HEMODIALYS IS ON [facility] levetiracet levetiracet No 1000mg Q1D levetirace [...] HEMODIALYSI AFTER S ON MW S ON [facility] HEMODIALYS IS ON [facility] levetiracet levetiracet No 1000mg Q1D levetirace [...] A DAY HEMODIALYSI HEMODIALYSI AFTER S ON [facility] S ON [facility] HEMODIALYS IS ON [facility] levetiracet levetiracet No 1000mg Q1D levetirace [...] DAILY ergocalcife ergocalcife No ergocalcif [facility] (vitamin (vitamin (vitamin D2) 1,250 [...] HEMODIALYSI AFTER S ON MWF S ON MW HEMODIALYS IS ON [facility] levetiracet levetiracet No 1000mg Q1D levetirace [...] Yes Eric 1 capsule Common HCl HCl [facility] Ferrous Ferrous Yes Eric 1 tablet Co mmon Sulfate Sulfate [facility] Vitamin C Vitamin C Yes Eric as Co mmon Rodriguez directed [facility] Pravastatin Pravastatin Yes Eric 1 tablet Common Sodium Sodium [facility] Sevelamer Sevelamer Yes Eric 1 packet Common Carbonate Carbonate [facility] mixed with [facility] 30 ml of - [facility] water with [facility] Vitamin B Vitamin B Yes Eric as Co mmon Complex Complex [place] directed Spiri t [facility] Doxazosin Doxazosin Yes Eric 1 tablet Common Mesylate Mesylate Rodriguez [facility] Eliquis Eliquis Yes Eric TAKE 1 Comm on [place] TABLET BY [facility] MOUTH - [facility]I TWICE St DAILY FOR [facility] 90 [facility] NIFEdipine NIFEdipine Yes Eric TAKE 1 Common [facility] ER [place] TABLET BY [facility] - [facility] EVERY [address] [facility] HOURS [facility] Metformin Metformin Yes Eric 1 tablet Common HCl HCl Rodriguez with a [facility] meal [facility] Vitamin D-3 Vitamin D-3 Yes Eric as Common Rodriguez directed [facility] Melatonin Melatonin Yes Eric 1 capsule Common [place] at bedtime [facility] as needed - [facility] with food [facility] Metformin Metformin Yes Eric 1 tablet Common HCl HCl [place] with a Spirit meal [facility] Atenolol Atenolol Yes Eric 1 tablet Common Rodriguez [facility] Sevelamer Sevelamer No TID Sevelamer Carbonate Carbonate [...] 30 days. oral route for 30 days. Immunizations Ordered Immunization Filled Immunization Date Status Commen ts Source Name Name Influenza, seasonal, 2022-01-30 Completed [facility] injectable 00:00:00 influenza, seasonal, influenza, seasonal, 2016-01-21 [...] free preservative free Influenza Vaccine 2016-01-21 Completed [facility] 00[facility]00:00 [...] Pre-Epic 2016-01-[address] [facility] 00:00:00 [facility] Influenza Three-TIV 2016-01-21 [facility] Influenza Pre-Epic 2016-01-[address] [facility]00 [facility] Influenza Three-TIV 2016-01-21 Com[facility]00 [facility] Influenza Pre-Epic 2016-01-[address] [facility] 00:00:00 [facility] Influenza Three-TIV 2016-01-21 Com[facility] 00:00:00 [facility] Influenza Pre-Epic 2016-01-[address] [facility] 00:00:00 [facility] Influenza Three-TIV 2016-01-21 Com[facility] Influenza Vaccine 2016-01-21 Completed [facility] 00:00:00 Influenza Pre-Epic 2016-01-[address] [facility] 00:00:00 [facility] Influenza Three-TIV 2016-01-21 Com[facility]R 00:00:00 [facility] Influenza 2016-01-21 Completed [facility] (Preservative Free) 00:00[facility] Influenza 2016-01-21 Completed [facility] (Preservative Free) 00:00:00 [facility] Influenza 2016-01-21 Completed [facility] (Preservative Free) 00:00:00 [facility] influenza, seasonal, influenza, seasonal, 2015-01-14 Completed [...] PCV 13 00:00:00 Influenza Vaccine 2015-01-14 Completed [facility] 00:00:00 Pneumococcal 2015-01-14 Completed [facility] 13-valent conj 0.5 00:00:00 mL injection Influenza Vaccine 2015-01-14 Completed [facility] 00:00:00 Pneumococcal 2015-01-14 Completed [facility] 13-valent conj 0.5 00:00:00 mL injection Influenza Vaccine 2015-01-14 Completed [facility] 00:00:00 Pneumococcal 2015-01-14 Completed [facility] 13-valent conj 0.5 00:00:00 mL injection Influenza Vaccine 2015-01-14 Completed [facility] 00:00:00 Pneumococcal 2015-01-14 Completed [facility] 13-valent conj 0.5 00:00:00 mL injection Influenza Vaccine 2015-01-14 Completed [facility] 00:00:00 Pneumococcal 2015-01-14 Completed [facility] 13-valent conj 0.5 00:00:00 mL injection Influenza Vaccine 2015-01-14 Completed [facility] 00:00:00 Pneumococcal 2015-01-14 Completed [facility] 13-valent conj 0.5 00:00:00 mL injection Influenza Vaccine 2015-01-14 Completed [facility] 00:00:00 Pneumococcal 2015-01-14 Completed [facility] 13-valent conj 0.5 00:00:00 mL injection Influenza Vaccine 2015-01-14 Completed [facility] 00:00:00 Pneumococcal 2015-01-14 Completed [facility] 13-valent conj 0.5 00:00:00 mL injection Influenza Vaccine 2015-01-14 Completed [facility] 00:00:00 Pneumococcal 2015-01-14 Completed [facility] 13-valent conj 0.5 00:00:00 mL injection Influenza Vaccine 2015-01-14 Completed [facility] 00:00:00 Pneumococcal 2015-01-14 Completed [facility] 13-valent conj 0.5 00:00:00 mL injection Influenza Vaccine 2015-01-14 Completed [facility] 00:00:00 Pneumococcal 2015-01-14 Completed [facility] 13-valent conj 0.5 00:00:00 mL injection Influenza Vaccine 2015-01-14 Completed [facility] 00:00:00 Pneumococcal 2015-01-14 Completed [facility] 13-valent conj 0.5 00:00:00 mL injection Influenza Pre-Epic 2015-01-[address] [facility] 00:00:00 [facility] Pneumococcal 2015-01-[address] [facility] Conjugate (Prevnar) 00:00:00 [facility] 13-Valent Influenza Three-TIV 2015-01-14 Com[facility] PF 5+ YR 00:00:00 [facility] Pneumococcal 2015-01-[address] [facility] Conjugate (Prevnar) 00:00:00 [facility] 13-Valent Influenza Pre-Epic 2015-01-[address] [facility] 00:00:00 [facility] Pneumococcal 2015-01-[address] [facility] Conjugate (Prevnar) 00:00:00 [facility] 13-Valent Influenza Three-TIV 2015-01-14 Completed [facility] PF 5+ YR 00:00:00 [facility] Pneumococcal 2015-01-[address] [facility] Conjugate (Prevnar) 00:00:00 [facility] 13-Valent Influenza Pre-Epic 2015-01-[address] [facility] 00:00:00 [facility] Pneumococcal 2015-01-[address] [facility] Conjugate (Prevnar) 00:00:00 [facility] 13-Valent Influenza Three-TIV 2015-01-14 Completed [facility] PF 5+ YR 00:00:00 [facility] Pneumococcal 2015-01-[address] [facility] Conjugate (Prevnar) 00:00:00 [facility] 13-Valent Influenza Pre-Epic 2015-01-[address] [facility] 00:00:00 [facility] Pneumococcal 2015-01-[address] [facility] Conjugate (Prevnar) 00:00:00 [facility] 13-Valent Influenza Three-TIV 2015-01-14 Completed [facility] PF 5+ YR 00:00:00 [facility] Pneumococcal 2015-01-[address] [facility] Conjugate (Prevnar) 00:00:00 [facility] 13-Valent Influenza Vaccine 2015-01-14 Completed [facility] 00:00:00 Pneumococcal 2015-01-14 Completed [facility] 13-valent conj 0.5 00:00:00 mL injection Influenza Pre-Epic 2015-01-[address] [facility] 00:00:00 [facility] Pneumococcal 2015-01-[address] [facility] Conjugate (Prevnar) 00:00:00 [facility] 13-Valent Influenza Three-TIV 2015-01-14 Completed [facility] PF 5+ YR 00:00:00 [facility] Pneumococcal 2015-01-[address] [facility] Conjugate (Prevnar) 00:00:00 [facility] 13-Valent Influenza 2015-01-14 Completed [facility] (Preservative Free) 00:00:00 of Ar art Pneumococcal 2015-01-14 Completed [facility] ge 13-valent Conjugate 00:00:00 [facility] Vaccine Influenza 2015-01-14 Completed [facility] (Preservative Free) 00:00:00 [facility] Pneumococcal 2015-01-14 Completed [facility] 13-valent Conjugate 00:00:00 [facility] Vaccine Influenza 2015-01-14 Completed [facility] (Preservative Free) 00:00:00 [facility] Pneumococcal 2015-01-14 Completed [facility] ge 13-valent Conjugate 00:00:00 of Me [...] free preservative free Influenza Vaccine 2014-02-09 Completed [facility] 00:00:00 Influenza Vaccine 2014-02-09 Completed [facility] 00:00:00 Influenza Vaccine 2014-02-09 Completed [facility] 00:00:00 Influenza Vaccine 2014-02-09 Completed [facility] 00:00:00 Influenza Vaccine 2014-02-09 Completed [facility] 00:00:00 Influenza Vaccine 2014-02-09 Completed [facility] 00:00:00 Influenza Vaccine 2014-02-09 Completed [facility] 00:00:00 Influenza Vaccine 2014-02-09 Completed [facility] 00:00:00 Influenza Vaccine 2014-02-09 Completed [facility] 00:00:00 Influenza Vaccine 2014-02-09 Completed [facility] 00:00:00 Influenza Vaccine 2014-02-09 Completed [facility] 00:00:00 Influenza Vaccine 2014-02-09 Completed [facility] 00:00:00 Influenza Pre-Epic 2014-02-09 [facility] Influenza Vaccine 2014-02-09 Completed [facility] 00:00:00 Influenza Pre-Epic 2014-02-[address] [facility] 00[facility]:00 [facility] Influenza Three-TIV 2014-02-09 Com[facility] PF 5+ YR 00:00:00 [facility] Influenza 2014-02-09 Completed [facility] (Preservative Free) 00:00:00 [facility] Influenza 2014-02-09 Completed [facility] (Preservative Free) 00:00:00 [facility] Influenza 2014-02-09 Completed [facility] (Preservative Free) 00:00:00 [facility] influenza, [...] free preservative free Influenza Vaccine 2013-01-20 Completed [facility] 00:00:00 [...] Pre-Epic 2013-01-[address] [facility] 00:00:00 [facility] Influenza Three-TIV 2013-01-20 [facility] 5+ [facility]R 00[facility]00:00 [facility] Influenza Pre-Epic 2013-01-[address] [facility] 00:00:00 [facility] Influenza Three-TIV 2013-01-20 Com[facility] PF 5+ YR 00:00:00 [facility] Influenza Pre-Epic 2013-01-[address] [facility] 00[facility]00:00 [facility] Influenza Three-TIV 2013-01-20 Com[facility] PF 5+ YR 00:00:00 [facility] Influenza Pre-Epic 2013-01-[address] [facility] 00:00:00 [facility] Influenza Three-TIV 2013-01-20 [facility] PF 5+ [facility]R 00[facility]00:00 [facility] Influenza Vaccine 2013-01-20 Completed [facility] 00:00:00 Influenza Pre-Epic 2013-01-[address] [facility] 00:00:00 [facility] Influenza Three-TIV 2013-01-20 Completed [facility] PF 5+ YR 00:00:00 [facility] Influenza 2013-01-20 Completed [facility] (Preservative Free) 00:00:00 [facility] Influenza 2013-01-20 Completed [facility] (Preservative Free) 00:00:00 [facility] Influenza 2013-01-20 Completed [facility] (Preservative Free) 00:00:00 [facility] influenza, [...] free preservative free Influenza Vaccine 2010-12-16 Completed [facility] 00:00:00 Influenza Vaccine 2010-12-16 Completed [facility] 00:00:00 Influenza Vaccine 2010-12-16 Completed [facility] 00:00:00 Influenza Vaccine 2010-12-16 Completed [facility] 00:00:00 Influenza Vaccine 2010-12-16 Completed [facility] 00:00:00 Influenza Vaccine 2010-12-16 Completed [facility] 00:00:00 Influenza Vaccine 2010-12-16 Completed [facility] 00:00:00 Influenza Vaccine 2010-12-16 Completed [facility] 00:00:00 Influenza Vaccine 2010-12-16 Completed [facility] 00:00:00 Influenza Vaccine 2010-12-16 Completed [facility] 00:00:00 Influenza Vaccine 2010-12-16 Completed [facility] 00:00:00 Influenza Vaccine 2010-12-16 Completed [facility] 00:00:00 Influenza Pre-Epic 2010-12-16 [facility] [...] Pre-Epic 2010-12-[address] [facility] 00:00:00 [facility] Influenza Three-TIV 2010-12-16 Com[facility] PF 5+ YR 00:00:00 [facility] Influenza Vaccine 2010-12-16 Completed [facility] 00:00:00 Influenza Pre-Epic 2010-12-[address] [facility] 00:00:00 [facility] Influenza Three-TIV 2010-12-16 Com[facility] PF 5+ YR 00:00:00 [facility] Influenza 2010-12-16 Completed [facility] (Preservative Free) 00:00:00 [facility] Influenza 2010-12-16 Completed [facility] (Preservative Free) 00:00:00 [facility] Influenza 2010-12-16 Completed [facility] (Preservative Free) 00:00:00 [facility] influenza, [...] Pre-Epic 2010-02-[address] [facility] 00:00:00 [facility] Influenza Three-TIV 2010-02-28 Com[facility] PF 5+ YR 00:00:00 [facility] Influenza Pre-Epic 2010-02-[address] [facility] 00[facility]00:00 [facility] Influenza Three-TIV 2010-02-28 Com[facility] PF 5+ YR 00:00:00 [facility] Influenza Pre-Epic 2010-02-[address] [facility] 00:00:00 [facility] Influenza Three-TIV 2010-02-28 Completed [facility] PF 5+ YR 00:00:00 [facility] Influenza Pre-Epic 2010-02-[address] [facility] 00:00:00 [facility] Influenza Three-TIV 2010-02-28 Com[facility] 5+ [facility]R 00:00:00 [facility] Influenza Vaccine 2010-02-28 Completed [facility] 00:00:00 Influenza Pre-Epic 2010-02-28 Completed [facility] 00:00:00 [facility] Influenza Three-TIV 2010-02-28 Completed [facility] PF 5+ YR 00:00:00 [facility] Influenza 2010-02-28 Completed [facility] (Preservative Free) 00:00:00 [facility] Influenza 2010-02-28 Completed [facility] (Preservative Free) 00:00:00 [facility] Influenza 2010-02-28 Completed [facility] (Preservative Free) 00:00:00 [facility] Vital [...] h BMI 2022-01-31 16:37:00 31[facility]18 [facility] 2022-01-31 16:37:00 98 /min [facility] Arterial blood by Pulse oximetry Systolic blood 2022-01-31 16:37:00 132 mm[Hg[facility] Diastolic blood 2022-01-31 16:37:00 84 mm[Hg] [facility] Heart rate 2022-01-31 16:37:00 75 /min [facility] BP Diastolic 2021-11-01 00:00:00 86 mm[Hg] [facility] Height 2021-11-01 00:00:00 61 [in_i] [facility] BMI (Body Mass Index) 2021-11-01 00:00:00 29.5 kg/m2 [facility] BP Systolic 2021-11-01 00:00:00 137 mm[Hg] [facility] Body Weight 2021-11-01 00:00:00 2496 [oz_av] [facility] BP Diastolic 2021-10-25 00:00:00 78 mm[Hg] [facility] Height 2021-10-25 00:00:00 61 [in_i] [facility] BMI (Body Mass Index) 2021-10-25 00:00:00 29.5 kg/m2 [facility] BP Systolic 2021-10-25 00:00:00 136 mm[Hg] [facility] Body Weight 2021-10-25 00:00:00 2496 [oz_av] [facility] BP Diastolic 2021-10-20 00:00:00 58 mm[Hg] [facility] Height 2021-10-20 00:00:00 61 [in_i] [facility] BMI (Body Mass Index) 2021-10-20 00:00:00 29.5 kg/m2 [facility] BP Systolic 2021-10-20 00:00:00 118 mm[Hg] [facility] Body Weight 2021-10-20 00:00:00 2496 [oz_av] [facility] BP Diastolic 2021-10-18 00:00:00 70 mm[Hg] [facility] Height 2021-10-18 00:00:00 61 [in_i] [facility] BMI (Body Mass Index) 2021-10-18 00:00:00 29.5 kg/m2 [facility] BP Systolic 2021-10-18 00:00:00 125 mm[Hg] [facility] Body Weight 2021-10-18 00:00:00 2496 [oz_av] [facility] BP Diastolic 2021-10-14 00:00:00 66 mm[Hg] [facility] Height 2021-10-14 00:00:00 61 [in_i] [facility] BMI (Body Mass Index) 2021-10-14 00:00:00 29.5 kg/m2 [facility] BP Systolic 2021-10-14 00:00:00 119 mm[Hg] [facility] Body Weight 2021-10-14 00:00:00 2496 [oz_av] [facility] BP Diastolic 2021-10-11 00:00:00 76 mm[Hg] [facility] Height 2021-10-11 00:00:00 61 [in_i] [facility] BMI (Body Mass Index) 2021-10-11 00:00:00 29.5 kg/m2 [facility] BP Systolic 2021-10-11 00:00:00 132 mm[Hg] [facility] Body Weight 2021-10-11 00:00:00 2496 [oz_av] [facility] BP Diastolic 2021-10-04 00:00:00 72 mm[Hg] [...] Medicine Body weight 2020-01-22 15:42:00 78.926 kg [facility] BMI 2020-01-22 15:42:00 32.88 kg/m2 [facility] Body height 2020-01-22 15:42:00 154.9 cm [facility] Body weight 2020-01-22 15:42:00 78.926 kg [facility] BMI 2020-01-22 15:42:00 32.88 kg/m2 [facility] Body height 2019-12-25 15:30:00 154.9 cm [facility] Body weight 2019-12-25 15:30:00 78.926 kg [facility] 2019-12-25 15:30:00 32.88 kg/m2 [facility] Body height 2019-12-25 15:30:00 154.9 cm [facility] Body weight 2019-12-25 15:30:00 78.926 kg [facility] 2019-12-25 15:30:00 32.88 kg/m2 [facility] Body height 2019-11-27 14:00:00 154.9 cm [facility] Body weight 2019-11-27 14:00:00 78.926 kg [facility] 2019-11-27 14:00:00 32.88 kg/m2 [facility] Body height 2019-11-27 14:00:00 154.9 cm [facility] Body weight 2019-11-27 14:00:00 78.926 kg [facility] 2019-11-27 14:00:00 32.88 kg/m2 [facility] Body height 2019-11-13 21:22:00 154.9 cm [facility] Body weight 2019-11-13 21:22:00 78.926 kg [facility] BMI 2019-11-13 21:22:00 32.88 kg/m2 [facility] Body height 2019-11-13 21:22:00 154.9 cm [facility] Body weight 2019-11-13 21:22:00 78.926 kg [facility] BMI 2019-11-13 21:22:00 32.88 kg/m2 [facility] HEIGHT 2019-11-04 00:00:00 156 cm WEIGHT 2019-11-04 00:00:00 85.004 kg Systolic blood 2021-09-24 12:03:00 140 mm[Hg] [facility] Diastolic blood 2021-09-24 12:03:00 80 mm[Hg] [facility] Heart rate 2021-09-24 12:03:00 111 /min [facility] Body temperature 2021-09-24 12:03:00 37.11 Tika [facility] Respiratory rate 2021-09-24 12:03:00 18 /min [facility] Oxygen saturation in 2021-09-24 12:03:00 99 /min [facility] Arterial blood by Medical Ce nter Pulse oximetry Body weight 2021-09-24 11:00:00 80.5 kg [facility] BMI 2021-09-24 11:00:00 33.55 kg/m2 [facility] Body height 2021-08-30 19:00:00 154.9 cm [facility] Heart rate 2021-08-25 15:00:00 108 /min [facility] Respiratory rate 2021-08-25 15:00:00 20 /min [facility] Oxygen saturation in 2021-08-25 13:30:00 100 /min [facility] Arterial blood by Medical Ce [facility] Pulse oximetry Systolic blood 2021-08-25 12:21:00 185 mm[Hg] [facility] Diastolic blood 2021-08-25 12:21:00 77 mm[Hg] [facility] Body temperature 2021-08-25 11:00:00 36.78 Tika [facility] Respiratory rate 2021-08-25 08:29:00 19 /min [facility] Heart rate 2021-08-25 08:27:00 98 /min [facility] Oxygen saturation in 2021-08-25 08:27:00 100 /min [facility] Arterial blood by Medical Ce [facility]ter Pulse oximetry Body temperature 2021-08-25 07:30:00 37.28 Tika [facility] Body weight 2021-08-25 04:00:00 75.6 kg [facility] BMI 2021-08-25 04:00:00 31.49 kg/m2 [facility] Systolic blood 2021-08-24 11:15:00 146 mm[Hg] [facility] Diastolic blood 2021-08-24 11:15:00 62 mm[Hg] [facility] Body height 2021-08-11 01:00:00 154.9 cm [facility] Procedures Procedure Date / Time Performing Clinician Source Performed [id number] 2022-03-03 [facility] 00:00:00 [facility] [id number] 2022-03-03 [facility] 00:00:00 [facility] [id number] 2022-02-24 [facility] 00:00:00 [facility] [id number] 2021-12-10 [facility] 00:00:00 [facility] POCT-GLUCOSE METER 2021-09-24 Brett Shah [facility] 11:42:00 [facility] BASIC METABOLIC PANEL 2021-09-24 Brett Shah [facility] 05:39:00 [facility] POCT-GLUCOSE METER 2021-09-24 Stephane Shahcampbellchaz [facility] 00:44:00 [facility] POCT-GLUCOSE METER 2021-09-23 Brett Shah [facility] 16:57:00 [facility] SARS-COV2/RT-PCR ([facility] 2021-09-23 Irlanda Short [facility] REF LABS) 09:51:00 [facility] POCT-GLUCOSE METER 2021-09-23 AnderinakamiKonradchaz [facility] 08:04:00 [facility] POCT-GLUCOSE METER 2021-09-23 AndreinakamiKonradchaz [facility] 06:14:00 [facility] TYPE AND SCREEN, 2021-09-23 Dino Cedillo [facility] dical AUTOMATED 04:26:00 [place] C-REACTIVE PROTEIN 2021-09-23 [facility] Wendy [facility] 03:30:00 [facility] MAGNESIUM 2021-09-23 Bartsch, Wendy [facility] 03:30:00 [facility] PHOSPHORUS 2021-09-23 [facility], [facility] 03:30:00 [facility] CBC (HEMOGRAM ONLY) 2021-09-23 [facility] 03:30:00 [facility] BASIC METABOLIC PANEL 2021-09-23 Dion Cedillo [facility] 03:30:00 [facility] POCT-GLUCOSE METER 2021-09-22 AndreinakamiKonradchaz [facility] 23:40:[address] [facility] [address] BRAIN WITHOUT IV 2021-09-22 TeofiloStephanecampbellchaz [facility] CONTRAST 17:55:00 [facility] VITAMIN B12 2021-09-22 [facility] 13:18:00 [facility] TSH 2021-09-22 [facility] 13:18:00 [facility] POCT-GLUCOSE METER 2021-09-22 [facility] Konradchaz [facility] 11:47:00 [facility] POCT-GLUCOSE METER 2021-09-21 [facility] 23:20:00 [facility] HEMODIALYSIS INPATIENT 2021-09-21 Demar Moore [facility] 22:09:09 [facility] MISCELLANEOUS LAB ORDER 2021-09-21 [facility] 18:20:00 [facility] VALPROIC ACID LEVEL, 2021-09-21 Pablo Hernandes [facility] Medical TOTAL 18:19:00 [facility] LEVETIRACETAM LEVEL 2021-09-21 Pablo Hernandes [facility] 18:19:00 Center POCT-GLUCOSE METER 2021-09-21 Brett Shah [facility] 11:26:00 [facility] POCT-GLUCOSE METER 2021-09-21 Brett Shah [facility] 06:46:00 [facility] C-REACTIVE PROTEIN 2021-09-21 Raul Wendy David [facility] 04:41:00 [place] BASIC METABOLIC PANEL 2021-09-21 [facility] 04:41:00 [place] MAGNESIUM 2021-09-21 Raul, Wendy Joann [facility] 04:41:00 [facility] PHOSPHORUS 2021-09-21 Raul, Wendy Joann [facility] 04:41:00 Center POCT-GLUCOSE METER 2021-09-20 [facility] Wendy Joann [facility] 23:30:00 Center POCT-GLUCOSE METER 2021-09-20 [facility], Wendy Joann [facility] 17:59:00 Center POCT-GLUCOSE METER 2021-09-20 Raul Wendy Joann [facility] 12:11:00 Center POCT-GLUCOSE METER 2021-09-20 Raul, Wendy Joann [facility] 05:52:00 Center POCT-GLUCOSE METER 2021-09-19 Raul Wendy Joann [facility] 23:22:00 Center POCT-GLUCOSE METER 2021-09-19 [facility] Wendy Joann [facility] 17:06:00 Center HEMODIALYSIS INPATIENT 2021-09-19 Demar Moore [facility] 12:35:40 Center POCT-GLUCOSE METER 2021-09-19 [facility], Wendy Joann [facility] 11:24:00 Center POCT-GLUCOSE METER 2021-09-19 Raul, Wendy Joann [facility] 06:29:00 [place] MAGNESIUM 2021-09-19 Raul Wendy Joann [facility] 04:06:00 [place] BASIC METABOLIC PANEL 2021-09-19 [facility] Wendy Joann [facility] 04:06:00 Center C-REACTIVE PROTEIN 2021-09-19 Bartsch, Wendy Joann [facility] 04:06:00 Center POCT-GLUCOSE METER 2021-09-19 Bartbuck, Wendy Joann [facility] 00:44:00 Center POCT-GLUCOSE METER 2021-09-18 [facility] Wendy Joann [facility] 17:46:00 Center POCT-GLUCOSE METER 2021-09-18 [facility] Wendy Joann [facility] 11:47:00 [facility] PHOSPHORUS 2021-09-18 [facility], Wendy Joann [facility] 04:21:00 Center CBC (HEMOGRAM ONLY) 2021-09-18 Paddybuck, Wendy David [facility] 04:21:00 [place] BASIC METABOLIC PANEL 2021-09-18 [facility] 04:21:00 [place] MAGNESIUM 2021-09-18 Raul, Wendy David [facility] 04:21:00 [facility] HEMODIALYSIS INPATIENT 2021-09-17 Demar Moore [facility] 19:51:14 Center POCT-GLUCOSE METER 2021-09-17 [facility], Wendy David [facility] 17:15:00 [facility] POCT-GLUCOSE METER 2021-09-17 [facility] 12:05:00 [facility] CBC (HEMOGRAM ONLY) 2021-09-17 Raul[facility] 04:15:00 [facility] BASIC METABOLIC PANEL 2021-09-17 [facility] 04:15:00 [place] MAGNESIUM 2021-09-17 [facility] 04:15:00 Center POCT-GLUCOSE METER 2021-09-16 [facility], Wendy Joann [facility] 22:38:00 [facility] POCT-GLUCOSE METER 2021-09-16 [facility], Wendy Joann [facility] 17:22:00 Center BLOOD CULTURE 2021-09-16 Demar Moore [facility] 14:56:00 [facility] HEMODIALYSIS INPATIENT 2021-09-16 Casey Mooregordon [facility] 12:40:49 [facility] POCT-GLUCOSE METER 2021-09-16 Raul Wendy David [facility] 11:11:00 [facility] SARS-COV2/RT-PCR ([facility] 2021-09-16 DejaIrlanda wilhelm [facility] RE[facility] LAB[facility]) 09:56:00 Zade [facility] POCT-GLUCOSE METER 2021-09-16 Raul Wendy David [facility] 06:15:00 Center PHOSPHORUS 2021-09-16 [facility] 03:20:00 Center VANCOMYCIN LEVEL, 2021-09-16 Goldie Bowie [facility] RANDOM 03:20:00 [facility] CBC (HEMOGRAM ONLY) 2021-09-16 [facility] Wendy David [facility] 03:20:00 [facility] BASIC METABOLIC PANEL 2021-09-16 [facility] 03:20:00 [facility] MAGNESIUM 2021-09-16 [facility] Wendy David [facility] 03:20:00 [facility] POCT-GLUCOSE METER 2021-09-15 [facility] Wendy David [facility] 23:07:00 [place] POCT-GLUCOSE METER 2021-09-15 [facility] 17:02:00 [place] BLOOD CULTURE 2021-09-15 [facility] Wendy David [facility] 13:55:00 [place] POCT-GLUCOSE METER 2021-09-15 [facility] Wendy David [facility] 11:24:00 [place] CBC W/PLT COUNT & AUTO 2021-09-15 [facility] Wendyher David [facility] DIFFERENTIAL 08:50:00 [place] LACTIC ACID, VENOUS 2021-09-15 [facility] 08:50:00 [place] PROCALCITONIN 2021-09-15 [facility] 08:50:00 [place] CBC W/PLT COUNT & AUTO 2021-09-15 [facility] DIFFERENTIAL 08:50:00 [place] POCT-GLUCOSE METER 2021-09-15 PaddybuckWendy [facility] 06:01:00 [place] POCT-GLUCOSE METER 2021-09-14 [facility] 23:24:00 [place] POCT-GLUCOSE METER 2021-09-14 PaddybuckWendy [facility] 17:58:00 [place] CBC (HEMOGRAM ONLY) 2021-09-14 Kashmir Hopkins [facility] 17:03:00 [place] XR CHEST 1 VIEW 2021-09-14 PaddybuckWendy [facility] PORTABLE / BEDSIDE 16:54:00 [place] CBC W/PLT COUNT & AUTO 2021-09-14 Teresa Caseyleonarda [facility] DIFFERENTIAL 13:35:00 [place] BASIC METABOLIC PANEL 2021-09-14 Demar Moore [facility] 13:35:00 [place] MAGNESIUM 2021-09-14 Demar Moore [facility] 13:35:00 [place] PHOSPHORUS 2021-09-14 Teresa Caseyleonarda [facility] 13:35:00 [place] CBC W/PLT COUNT & AUTO 2021-09-14 Teresa Caseyleonarda [facility] DIFFERENTIAL 13:35:00 [place] POCT-GLUCOSE METER 2021-09-14 PaddybuckWendy [facility] 12:10:00 [place] HEMODIALYSIS INPATIENT 2021-09-14 Demar Moore [facility] 09:22:25 [place] POCT-GLUCOSE METER 2021-09-14 Ralph Konradchaz [facility] 07:19:00 [facility] POCT-GLUCOSE METER 2021-09-14 Brett Shah [facility] 06:21:00 [facility] POCT-GLUCOSE METER 2021-09-14 Brett Shah [facility] 01:06:00 [facility] POCT-GLUCOSE METER 2021-09-14 [facility] 00:29:00 [facility] POCT-GLUCOSE METER 2021-09-13 Teofiloa, [facility] 18:48:00 [facility] POCT-GLUCOSE METER 2021-09-13 Ralph [facility] 12:42:00 [facility] POCT-GLUCOSE METER 2021-09-13 Ralph [facility] 05:59:00 [facility] POCT-GLUCOSE METER 2021-09-12 Ralph [facility] 23:36:00 [facility] HEMODIALYSIS INPATIENT 2021-09-12 Vinay [facility] 18:55:00 [place] POCT-GLUCOSE METER 2021-09-12 [facility] 18:44:00 [facility] HEPATITIS B SURFACE 2021-09-12 Vinay [facility] 15:13:00 [place] POCT-GLUCOSE METER 2021-09-12 [facility]ac[facility] 13:35:00 [facility] POCT-GLUCOSE METER 2021-09-12 Andreinacleveland clinic union hospitalgisel [facility] 12:59:00 [facility] REPORT OF PROCEDURE - 2021-09-12 Dl Diana [facility] Medical ENDOSCOPY URL 12:44:29 [place] ESOPHAGOGASTRODUODENOSC 2021-09-12 Dl Diana [facility] Medical OPY, WITH PEG TUBE 11:49:00 [place] INSERTION POCT-GLUCOSE METER 2021-09-12 Andreinasalmagisel Brett [facility] 06:29:00 [facility] BASIC METABOLIC PANEL 2021-09-12 Andreinacleveland clinic union hospitalgisel [facility] 04:06:00 [facility] CBC W/PLT COUNT & AUTO 2021-09-12 Ralph [facility] DIFFERENTIAL 04:06:00 [facility] APTT 2021-09-12 Kashmir [facility] Med ical 04:06:00 [place] CBC W/PLT COUNT & AUTO 2021-09-12 [facility] DIFFERENTIAL 04:06:00 [facility] POCT-GLUCOSE METER 2021-09-11 [facility] 23:45:00 [facility] CBC (HEMOGRAM ONLY) 2021-09-11 Kellie [facility] 18:06:00 Center APTT 2021-09-11 Kon[facility]Saint [facility] Me dical 18:05:00 [facility] POCT-GLUCOSE METER 2021-09-11 Stephane [facility] 17:56:00 [facility] POCT-GLUCOSE METER 2021-09-11 Ralph [facility] 13:01:00 [facility] APTT 2021-09-11 Brett Shah [facility] dical 12:10:00 [facility] POCT-GLUCOSE METER 2021-09-11 Ralph [facility]idadWest [facility] 10:44:00 [facility] POCT-GLUCOSE METER 2021-09-11 Kon[facility]West [facility] 06:29:00 [facility] APTT 2021-09-11 Kellie, Kashmir [facility] 05:08:00 Center APTT 2021-09-11 Kellie, Kashmir [facility] 01:38:00 Center POCT-GLUCOSE METER 2021-09-11 Kon[facility]West [facility] 01:04:00 [facility] APTT 2021-09-10 Kellie, Kashmir [facility] 17:48:00 Center POCT-GLUCOSE METER 2021-09-10 Ralph [facility] 17:17:00 [facility] POCT-GLUCOSE METER 2021-09-10 Ralph [facility] 11:44:00 [facility] APTT 2021-09-10 Kellie, [place] [facility] 10:41:00 Center APTT 2021-09-10 Kellie, Kashmir [facility] 08:56:00 [place] POCT-GLUCOSE METER 2021-09-10 Kon[facility]West [facility] 08:02:00 [facility] POCT-GLUCOSE METER 2021-09-10 Kon[facility]West [facility] 07:02:00 [facility] APTT 2021-09-10 Kellie, Kashmir [facility] Med ical 02:33:00 [place] POCT-GLUCOSE METER 2021-09-10 Konrad [facility]West [facility] 00:35:00 [facility] APTT 2021-09-09 Kellie, Kashmir [facility] Med ical 17:29:00 [place] POCT-GLUCOSE METER 2021-09-09 Andreinacleveland clinic union hospitalStephane batresLos [facility]anos [facility] 17:18:00 [facility] SARS-COV2/RT-PCR ([facility] 2021-09-09 Irlanda Short [facility] & REF LABS) 14:25:00 [facility] POCT-GLUCOSE METER 2021-09-09 Brett Shah [facility] 12:12:00 [facility] HEMODIALYSIS INPATIENT 2021-09-09 Teresa [facility] 11:44:35 [place] POCT-GLUCOSE METER 2021-09-09 Konrad Shahchaz [facility] 10:03:00 [facility] APTT 2021-09-09 Zak [facility] Med ical 08:00:00 [place] POCT-GLUCOSE METER 2021-09-09 Konrad Shahchaz [facility] 06:11:00 [facility] PROTHROMBIN TIME/INR 2021-09-09 Ralph Stephanecampbellchaz [facility] 05:26:00 [facility] BASIC METABOLIC PANEL 2021-09-09 Demar Moore [facility] 05:26:00 [place] CBC W/PLT COUNT & AUTO 2021-09-09 Demar Moore [facility] DIFFERENTIAL 05:26:00 [place] MAGNESIUM 2021-09-09 Jorge [facility] 05:26:00 [place] PHOSPHORUS 2021-09-09 Demar Moore [facility] 05:26:00 [place] CBC W/PLT COUNT & AUTO 2021-09-09 [facility] DI[facility] 05:26:00 [place] APTT 2021-09-09 Kellie, Kashmir [facility] 00:44:00 [place] POCT-GLUCOSE METER 2021-09-08 Ralph [facility] 23:38:00 [facility] CBC (HEMOGRAM ONLY) 2021-09-08 Kellie [facility] 17:53:00 [place] POCT-GLUCOSE METER 2021-09-08 Ralph [facility] 17:23:00 [facility] APTT 2021-09-08 Kellie, Kashmir [facility] 15:58:00 [place] APTT 2021-09-08 Kellie, Kashmir [facility] 14:05:00 [place] POCT-GLUCOSE METER 2021-09-08 RalphBrett [facility] 12:17:00 [facility] APTT 2021-09-08 Kellie, Kashmir [facility] 06:51:00 [place] APTT 2021-09-07 Kellie, Kashmir [facility] 22:15:00 [place] APTT 2021-09-07 Kellie, Kashmir [facility] 17:22:00 [place] APTT 2021-09-07 Kellie, Kashmir [facility] 10:55:00 [place] APTT 2021-09-07 Kellie, Kashmir [facility] 08:49:00 [place] HEMODIALYSIS INPATIENT 2021-09-07 [facility] 08:48:45 [place] APTT 2021-09-07 Kellie, Kashmir [facility] 00:01:00 [place] APTT 2021-09-06 Ralph [facility] dical 17:16:00 [facility] APTT 2021-09-[address] dical 09:14:00 [facility]emaimon[facility] centercristal [place] APTT 2021-09-[address] [facility] Med ical 06:21:00 [place] APTT 2021-09-06 Kellie[facility] Med ical 04:20:00 [place] CBC (HEMOGRAM ONLY) 2021-09-05 Kellie [facility] 21:26:00 [place] APTT 2021-09-05 Kellie, formerly [facility] Med ical 21:26:00 [place] HEMODIALYSIS INPATIENT 2021-09-05 Jorge [facility] 11:45:00 [place] POCT-GLUCOSE METER 2021-09-05 Kellie [facility] 11:11:00 [place] CBC W/PLT COUNT & AUTO 2021-09-05 Kellie [facility] DIFFERENTIAL 05:08:00 [place] BASIC METABOLIC PANEL 2021-09-05 Kellie [facility] 05:08:00 [place] CBC W/PLT COUNT & AUTO 2021-09-05 Kellie [facility] DIFFERENTIAL 05:08:00 [place] SARS-COV2/RT-PCR ([facility] 2021-09-03 Irlanda Short [facility] & REF LABS) 10:23:00 [facility] BASIC METABOLIC PANEL 2021-09-02 Demar Moore [facility] 03:44:00 [place] CBC W/PLT COUNT & AUTO 2021-09-02 Jorge Mooreea [facility] DIFFERENTIAL 03:44:00 [place] MAGNESIUM 2021-09-02 Teresa [facility] Hospitale[facility] 03:44:00 [place] PHOSPHORUS 2021-09-02 [facility] 03:44:00 [place] CBC W/PLT COUNT & AUTO 2021-09-02 Jorge Mooreea [facility] DIFFERENTIAL 03:44:00 [place] HEMODIALYSIS INPATIENT 2021-08-31 Jorge [facility] 17:24:00 [place] POCT-GLUCOSE METER 2021-08-31 IlyaRa mylesLoma Linda [facility] 16:38:00 [facility] POCT-GLUCOSE METER 2021-08-31 Ilya [facility] 12:07:00 [facility] VALPROIC ACID LEVEL, 2021-08-31 Luna Parada [facility] Medical TOTAL 10:43:00 [place] POCT-GLUCOSE METER 2021-08-31 Ilya [facility] 05:56:00 [facility] CBC W/PLT COUNT & AUTO 2021-08-31 Lion [facility] DIFFERENTIAL 02:52:00 [place] MAGNESIUM 2021-08-31 Lion, [facility] 02:52:00 [place] PHOSPHORUS 2021-08-31 Lion [facility] 02:52:00 [place] BASIC METABOLIC PANEL 2021-08-31 AhmadNichelle [facility] 02:52:00 [place] APTT 2021-08-31 Noorbhai, Jones [facility] edical 02:52:00 [facility] CBC W/PLT COUNT & AUTO 2021-08-31 Lion [facility] DIFFERENTIAL 02:52:00 [place] POCT-GLUCOSE METER 2021-08-30 Ilya [facility] 23:30:00 [facility] POCT-GLUCOSE METER 2021-08-30 Ilya [facility] 18:14:00 [facility] POCT-GLUCOSE METER 2021-08-[address] [facility] 11:35:00 [facility] EEG 12-26 HR CONTINUOUS 2021-08-[address] [facility] MONITORING WITH VIDEO 06:28:00 [facility] POCT-GLUCOSE METER 2021-08-[address] [facility] 05:51:00 [facility] POCT-GLUCOSE METER 2021-08-[address] [facility] Medical 04:44:00 [facility] CBC W/PLT COUNT & AUTO 2021-08-[address] [facility] DIFFERENTIAL 03:21:00 [place] MAGNESIUM 2021-08-30 [facility]isabet [facility]The [facility] Luchi [facility] Medical 03:21:00 [place] PHOSPHORUS 2021-08-30 Lion Priti [facility] Medical 03:21:00 [place] BASIC METABOLIC PANEL 2021-08-30 Nichelle Day [facility] 03:21:00 [place] APTT 2021-08-30 Noorbhai, Jones [facility] ed[facility] 03:21:00 [facility] CBC W/PLT COUNT & AUTO 2021-08-30 Elisabet [facility] DIFFERENTIAL 03:21:00 [place] XR CHEST 1 VIEW 2021-08-30 Zunilda Joya [facility] PORTABLE / BEDSIDE 01:16:00 [place] POCT-GLUCOSE METER 2021-08-[address] [facility] 23:38:00 [facility] APTT 2021-08-29 [facility] edical 22:06:00 [facility] POCT-GLUCOSE METER 2021-08-[address] [facility] WilmerL[facility] 18:10:00 [facility] APTT 2021-08-29 [facility] edical 15:04:00 [facility] POCT-GLUCOSE METER 2021-08-[address] [facility] 11:46:00 [facility] HEMODIALYSIS INPATIENT 2021-08-29 Kerwin Mclean [facility] 07:31:54 [place] APTT 2021-08-29 [facility], [facility] 06:51:00 [facility] EEG 12-26HR 2021-08-29 [facility] Acevedo [facility] INTERMITTENT MONITORING 06:13:00 Vangie Aldridge nter WITH VIDEO POCT-GLUCOSE METER 2021-08-29 [facility] Acevedo [facility] 05:32:00 [facility] Oly [place] MAGNESIUM 2021-08-29 Lion [facility] 04:59:00 Center PHOSPHORUS 2021-08-29 Elisabet SeymourKaiser [facility] 04:59:00 [place] COMPREHENSIVE METABOLIC 2021-08-[address] [facility] Medical PANEL 04:59:00 [place] BLOOD GAS, ARTERIAL 2021-08-29 Elisabet SeymourWilson N. [facility] 03:41:00 [place] CBC W/PLT COUNT & AUTO 2021-08-29 Lion [facility] DIFFERENTIAL 03:40:00 [place] CBC W/PLT COUNT & AUTO 2021-08-29 Lion [facility] DIFFERENTIAL 03:40:00 [place] XR CHEST 1 VIEW 2021-08-29 Zunilda Joya [facility] PORTABLE / BEDSIDE 02:28:00 [place] POCT-GLUCOSE METER 2021-08-29 [facility] 00:28:00 [facility] APTT 2021-08-29 [facility], [facility] edical 00:23:00 [facility] APTT 2021-08-28 [facility] edical 22:05:00 [facility] XR ABDOMEN/KUB 1 VIEW 2021-08-28 [facility], [facility] Medical PORTABLE 18:50:00 [facility] POCT-GLUCOSE METER 2021-08-28 [facility] 18:08:00 [facility] APTT 2021-08-28 [facility], [facility] edical 12:53:00 [facility] POCT-GLUCOSE METER 2021-08-28 [facility] 12:02:00 [facility] POCT-GLUCOSE METER 2021-08-28 [facility] 07:17:00 [facility] EEG 12-26HR 2021-08-28 [facility] edical INTERMITTENT MONITORING 06:09:00 [facility] nter WITH VIDEO CBC W/PLT COUNT & AUTO 2021-08-28 Priti Seymour [facility] DIFFERENTIAL 04:10:00 [place] CBC W/PLT COUNT & AUTO 2021-08-28 El[facility]ab[facility] DIFFERENTIAL 04:10:00 [place] BASIC METABOLIC PANEL 2021-08-28 Priti Seymour [facility] 04:10:00 [place] MAGNESIUM 2021-08-28 [facility]ab[facility] Se[facility]ourK[facility] 04:10:00 [place] PHOSPHORUS 2021-08-28 Elisabet Seymourutha [facility] 04:10:00 [place] BLOOD GAS, VENOUS 2021-08-28 [facility] 04:10:00 [facility] PT/APTT 2021-08-28 [facility] edical 04:10:00 [facility] XR CHEST 1 VIEW 2021-08-28 Zunilda Joya [facility] PORTABLE / BEDSIDE 00:39:00 [place] POCT-GLUCOSE METER 2021-08-27 [facility] 23:45:00 [facility] PT/APTT 2021-08-27 [facility] edical 21:17:00 [facility] POCT-GLUCOSE METER 2021-08-27 [facility] 17:30:00 [facility] APTT 2021-08-27 Robert De La Vega [facility] edical 14:40:00 [facility] POCT-GLUCOSE METER 2021-08-27 [facility] 12:20:00 [facility] POCT-GLUCOSE METER 2021-08-27 [facility] 08:16:00 [facility] POCT-GLUCOSE METER 2021-08-27 [facility] Medical 07:02:00 [facility] PT/APTT 2021-08-27 [facility] edical 06:57:00 [facility] BLOOD GAS, ARTERIAL 2021-08-27 Lion [facility] 06:39:00 [place] CBC W/PLT COUNT & AUTO 2021-08-27 Lion [facility] DIFFERENTIAL 06:35:00 [place] CBC W/PLT COUNT & AUTO 2021-08-27 Lion [facility] DIFFERENTIAL 06:35:00 [place] BASIC METABOLIC PANEL 2021-08-27 Lion [facility] 06:35:00 [place] MAGNESIUM 2021-08-27 Lion [facility] 06:35:00 [place] PHOSPHORUS 2021-08-27 Lion [facility] 06:35:00 [place] VALPROIC ACID LEVEL, 2021-08-27 Brisa Trujillo [facility] TOTAL 06:35:00 [place] EEG 12-26 HR CONTINUOUS 2021-08-27 Robert De La [facility]ega [facility] MONITORING WITH VIDEO 06:16:00 [facility] XR CHEST 1 VIEW 2021-08-27 Zunilda Joya [facility] PORTABLE / BEDSIDE 02:27:00 [place] POCT-GLUCOSE METER 2021-08-27 [facility] 01:37:00 [facility] PREPARE RBC 2021-08-26 Ramin De Leon [facility] 23:55:00 [place] POCT-GLUCOSE METER 2021-08-26 [facility] 18:09:00 [facility] HEMODIALYSIS INPATIENT 2021-08-26 Demar Moore [facility] 16:10:19 [place] POCT-GLUCOSE METER 2021-08-26 [facility] 13:00:00 [facility] APTT 2021-08-26 [facility] edical 10:08:00 [facility] POCT-GLUCOSE METER 2021-08-26 [facility] 05:24:00 [facility] BLOOD GAS, ARTERIAL 2021-08-26 [facility] 04:29:00 [place] BASIC METABOLIC PANEL 2021-08-26 Lion [facility] 04:28:00 [place] MAGNESIUM 2021-08-26 Lion [facility] 04:28:00 [place] PHOSPHORUS 2021-08-26 Lion [facility] 04:28:00 [place] VALPROIC ACID LEVEL, 2021-08-26 PittardStefanBrisa [facility] TOTAL 04:28:00 [place] APTT 2021-08-26 [facility] edical 04:27:00 [facility] XR CHEST 1 VIEW 2021-08-26 Zunilda Joya [facility] PORTABLE / BEDSIDE 02:31:00 [place] CBC W/PLT COUNT & AUTO 2021-08-26 Lion [facility] DIFFERENTIAL 00:48:00 [place] CBC W/PLT COUNT & AUTO 2021-08-26 Lion [facility] DIFFERENTIAL 00:48:00 [place] POCT-GLUCOSE METER 2021-08-25 [facility] 23:25:00 [facility] APTT 2021-08-25 [facility] edical 21:28:00 [facility] TRANSFUSE LEUKO-REDUCED 2021-08-25 [facility] RED BLOOD CELLS 19:00:00 [facility] POCT-GLUCOSE METER 2021-08-25 [facility] 18:13:00 [facility] APTT 2021-08-25 [facility] edical 14:25:00 [facility] POCT-GLUCOSE METER 2021-08-25 [facility] 12:43:00 [facility] PREPARE LEUKO-REDUCED 2021-08-25 [facility], [facility] RBC 12:14:00 [facility] APTT 2021-08-25 Vandana Andrade [facility] 11:00:00 [place] LACTIC ACID, VENOUS 2021-08-25 Ahmad [facility] 11:00:00 Center TYPE AND SCREEN, 2021-08-25 [facility] AUTOMATED 11:00:00 [facility] SARS-COV2/RT-PCR ([facility] 2021-08-25 [facility] & REF LABS) 10:50:00 [facility] CBC (HEMOGRAM ONLY) 2021-08-25 Lion [facility] 05:54:00 [place] POCT-GLUCOSE METER 2021-08-25 [facility] 05:50:00 [facility] BLOOD GAS, ARTERIAL 2021-08-25 Lion [facility] 02:52:00 [place] CBC W/PLT COUNT & AUTO 2021-08-25 Lion [facility] DIFFERENTIAL 02:52:00 [place] BASIC METABOLIC PANEL 2021-08-25 Lion [facility] 02:52:00 Center MAGNESIUM 2021-08-25 Lion [facility] 02:52:00 [place] PHOSPHORUS 2021-08-25 Lion [facility] 02:52:00 [place] LACTIC ACID, VENOUS 2021-08-25 Lion [facility] 02:52:00 [place] APTT 2021-08-25 [facility] edical 02:52:00 [facility] CREATINE KINASE (CK) 2021-08-25 [facility] 02:52:00 [place] CBC W/PLT COUNT & AUTO 2021-08-25 Lion [facility] DIFFERENTIAL 02:52:00 [place] HEPATIC FUNCTION PANEL 2021-08-25 [facility] 02:52:00 [place] XR CHEST 1 VIEW 2021-08-25 Zunilda Joya [facility] PORTABLE / BEDSIDE 02:33:00 [place] POCT-GLUCOSE METER 2021-08-24 Rangely [facility] 23:10:00 [facility] POCT-GLUCOSE METER 2021-08-24 [facility] 17:03:00 [facility] APTT 2021-08-24 Marcus De La Veg[facility] edical 16:50:00 [facility] LACTIC ACID, ARTERIAL 2021-08-24 Nichelle Day [facility] 16:50:00 [place] POCT-GLUCOSE METER 2021-08-24 [facility] 14:19:00 [facility] HEMODIALYSIS INPATIENT 2021-08-24 Demar Moore [facility] 11:19:00 [place] XR CHEST 1 VIEW 2021-08-24 [facility] edical PORTABLE / BEDSIDE 09:46:00 [facility] POCT-GLUCOSE METER 2021-08-24 [facility] 05:49:00 [facility] PHENYTOIN LEVEL, TOTAL 2021-08-24 Bghigh, Sherita [facility] 05:41:00 [place] BLOOD GAS, ARTERIAL 2021-08-24 [facility] [place] 04:58:00 [place] CBC W/PLT COUNT & AUTO 2021-08-24 [facility] DIFFERENTIAL 04:54:00 [place] BASIC METABOLIC PANEL 2021-08-24 [facility] 04:54:00 [place] MAGNESIUM 2021-08-24 [facility] 04:54:00 [place] PHOSPHORUS 2021-08-24 [facility] 04:54:00 [place] CALCIUM, IONIZED 2021-08-24 [facility] 04:54:00 [place] LACTIC ACID, VENOUS 2021-08-24 [facility] 04[facility]54[facility]00 Center CBC W/PLT COUNT & AUTO 2021-08-24 Lion [facility] DIFFERENTIAL 04:54:00 [place] (CELLAVISION MANUAL 2021-08-24 [facility] DIFF) 04:54:00 Center APTT 2021-08-24 [facility] edical 04:53:00 [facility] [place] XR ABDOMEN/KUB 1 VIEW 2021-08-24 Elisabet Seymourutha [facility] PORTABLE 00:26:00 [place] XR CHEST 1 VIEW 2021-08-24 Zunilda Joya [facility] PORTABLE / BEDSIDE 00:25:00 [place] POCT-GLUCOSE METER 2021-08-23 [facility] 23:48:00 [facility] APTT 2021-08-23 [facility] hospital[facility] edical 20:32:00 Zoebformerly [facility] APTT 2021-08-23 [facility] edical 18:28:00 [facility] POCT-GLUCOSE METER 2021-08-23 [facility] 16:40:00 [facility] POCT-GLUCOSE METER 2021-08-23 [facility] 11:52:00 [facility] APTT 2021-08-23 [facility]wellspan [facility] hospitalMarcusSt[facility] edical 11:46:00 [facility] VENOUS DOPPLER ARMS 2021-08-23 RanjettLuis Eduardo bloom [facility] BILATERAL 10:15:00 Center XR CHEST 1 VIEW 2021-08-23 Dinesh Head [facility] PORTABLE / BEDSIDE 09:25:00 [place] SPUTUM CULTURE + GRAM 2021-08-23 Dinesh Head [facility] Medical STAIN 09:21:00 [place] PROCALCITONIN 2021-08-23 [facility] edical 09:03:00 Zoebali Center EEG 12-26 HR CONTINUOUS 2021-08-23 Ravinder Ardon [facility] MONITORING WITH VIDEO 06:07:00 [place] POCT-GLUCOSE METER 2021-08-23 [facility] 05:13:00 [facility] BLOOD GAS, ARTERIAL 2021-08-[address] [facility] Medical 03:48:00 [place] CBC W/PLT COUNT & AUTO 2021-08-23 Lion [facility] DIFFERENTIAL 03:47:00 [place] BASIC METABOLIC PANEL 2021-08-23 Lion [facility] Medical 03:47:00 [place] MAGNESIUM 2021-08-23 Lion [facility] Medical 03:47:00 [place] PHOSPHORUS 2021-08-23 Lion [facility] Medical 03:47:00 [place] CBC W/PLT COUNT & AUTO 2021-08-23 [facility] DIFFERENTIAL 03:47:00 [place] (CELLAVISION MANUAL 2021-08-23 Lion [facility] [place] DIFF) 03:47:00 [place] XR CHEST 1 VIEW 2021-08-23 Zunilda Joya [facility] PORTABLE / BEDSIDE 01:23:00 [place] POCT-GLUCOSE METER 2021-08-23 [facility] 00:24:00 [facility] ALBUMIN 2021-08-22 Demar Moore [facility] 16:57:00 [place] POCT-GLUCOSE METER 2021-08-[address] [facility] 16:56:00 [facility] HEMODIALYSIS INPATIENT 2021-08-22 Demar Moore [facility] 11:22:25 [place] EEG 12-26 HR CONTINUOUS 2021-08-22 Ravinder Ardon [facility] MONITORING WITH VIDEO 07:49:00 [place] POCT-GLUCOSE METER 2021-08-22 Ramin De Leon [facility] 05:37:00 [place] BASIC METABOLIC PANEL 2021-08-22 Ramin De Leon [facility] 03:58:00 [place] MAGNESIUM 2021-08-22 [facility], Ramincassy Piedra [facility] 03:58:00 [place] CBC W/PLT COUNT & AUTO 2021-08-22 [facility], Ramin [facility] DIFFERENTIAL 03:58:00 [place] BLOOD GAS, ARTERIAL 2021-08-22 [facility], [facility] 03:58:00 [place] PHOSPHORUS 2021-08-22 [facility], [facility] Medical 03:58:00 [place] CBC W/PLT COUNT & AUTO 2021-08-22 [facility], [facility] DIFFERENTIAL 03:58:00 [place] (CELLAVISION MANUAL 2021-08-22 [facility], [facility] DIFF) 03:58:00 [place] XR CHEST 1 VIEW 2021-08-22 Zunilda Joya [facility] PORTABLE / BEDSIDE 00:32:00 [place] POCT-GLUCOSE METER 2021-08-21 [facility], [facility] 23:43:00 [place] BASIC METABOLIC PANEL 2021-08-21 Dilcia, Fnu [facility] 15:55:00 [place] PHOSPHORUS 2021-08-21 Luis Eduardo Talamantes [facility] 15:55:00 [place] PHENYTOIN LEVEL, TOTAL 2021-08-21 Zunilda Joya I [facility] 12:14:00 [place] HEMOGLOBIN AND 2021-08-21 Noorbhai, [facility] M edical HEMATOCRIT 12:14:00 Zoebali [place] BASIC METABOLIC PANEL 2021-08-21 Noorbhai, [facility] Medical 12:14:00 Zoebali [place] CBC W/PLT COUNT & AUTO 2021-08-21 Dilcia, Fnu [facility] Medical DIFFERENTIAL 12:14:00 [place] MAGNESIUM 2021-08-21 Dilcia, Fnu [facility] Med ical 12:14:00 [place] PHOSPHORUS 2021-08-21 Dilcia, Fnu [facility] Med ical 12:14:00 [place] CBC W/PLT COUNT & AUTO 2021-08-21 Dilcia, Fnu [facility] DIFFERENTIAL 12:14:00 [place] IGG INDEX (CSF + BLOOD) 2021-08-21 [facility], [facility] 12:10:00 [facility] PROTEIN, CSF 2021-08-21 [facility], [facility] M edical 12:09:00 [facility] CSF CELL COUNT 2021-08-21 [facility], [facility] edical W/DIFFERENTIAL 12:09:00 [facility] CSF CULTURE + GRAM 2021-08-21 [facility], [facility] Medical STAIN 12:09:00 [facility] GLUCOSE, CSF 2021-08-21 [facility], [facility] edical 12:09:00 [facility] MENINGITIS/ENCEPHALITIS 2021-08-21 [facility], [facility] Medical PANEL 12:09:00 [facility] PARANEOPLASTIC AB EVAL 2021-08-21 [facility], [facility] W/ REFLEX TITER & LB, 12:09:00 [facility] CSF [place] VIRUS, CSF, 2021-08-21 [facility], [facility] IGG & IGM 12:09:00 [facility] EEG 12-26 HR CONTINUOUS 2021-08-21 Ravinder Ardon [facility] MONITORING WITH VIDEO 09:37:58 [place] XR CHEST 1 VIEW 2021-08-21 Zunilda Joya [facility] PORTABLE / BEDSIDE 07:49:00 [place] POCT-GLUCOSE METER 2021-08-21 [facility], Ramin [facility] 06:18:00 [place] BLOOD GAS, ARTERIAL 2021-08-21 [facility], Ramin [facility] 03:24:00 [place] PHENYTOIN LEVEL, TOTAL 2021-08-21 Dilcia, u [facility] AND FREE 03:23:00 [place] BASIC METABOLIC PANEL 2021-08-21 [facility] 03:23:00 [place] MAGNESIUM 2021-08-21 [facility], Ramin Piedra [facility] Medical 03:23:00 Center PHOSPHORUS 2021-08-21 [facility], Ramin Piedra [facility] Medical 03:23:00 Center CBC W/PLT COUNT & AUTO 2021-08-21 [facility], Ramin [facility] Medical DIFFERENTIAL 03:23:00 [place] CBC W/PLT COUNT & AUTO 2021-08-21 [facility], Ramin Piedra [facility] DIFFERENTIAL 03:23:00 [place] POCT-GLUCOSE METER 2021-08-21 [facility], Ramin [facility] 00:20:00 [place] ECG 12-LEAD 2021-08-20 Unknown, Hl7 Doctor [facility] 23:09:01 [place] ECG 12-LEAD 2021-08-20 Unknown, Hl7 Doctor [facility] 23:09:01 [place] ECG 12-LEAD 2021-08-20 PittardBrisa [facility] ical 23:08:35 [place] ECG 12-LEAD 2021-08-20 Unknown, Hl7 Doctor [facility] 23:08:35 [place] ECG 12-LEAD 2021-08-20 Unknown, [address] 23:08:35 [place] POCT-GLUCOSE METER 2021-08-20 [facility], [facility] 22:22:00 [place] POCT-GLUCOSE METER 2021-08-20 [facility], [facility] 17:25:00 Center PHENYTOIN LEVEL, TOTAL 2021-08-20 Dinesh Head [facility] 14:09:00 [place] INSERT 2021-08-20 McGLuis Eduardo dugan [facility] CATH,ART,PERCUT,SHORTTE 13:28:00 [place] RM POCT-GLUCOSE METER 2021-08-20 [facility], [facility] 12:04:00 [place] XR ABDOMEN/KUB 1 VIEW 2021-08-20 Dinesh Head [facility] PORTABLE 11:57:00 [place] POCT-GLUCOSE METER 2021-08-20 [facility], [facility] 11:04:00 [place] EEG 12-26 HR CONTINUOUS 2021-08-20 Ravinder Ardon [facility] MONITORING WITH VIDEO 10:52:21 Center POCT-GLUCOSE METER 2021-08-20 [facility], Ramin [facility] 07:02:00 [place] HEMODIALYSIS INPATIENT 2021-08-20 Maria Dolores Lezama, Ranjan [facility] 06:21:50 [place] POCT-GLUCOSE METER 2021-08-20 [facility], Ramin [facility] Medical 06:11:00 [place] BLOOD GAS, ARTERIAL 2021-08-20 [facility], [facility] 04:29:00 [place] PTH, INTACT 2021-08-20 Maria Dolores Lezama, Ranjan [facility] 04:28:00 [place] CBC W/PLT COUNT & AUTO 2021-08-20 [facility], [facility] DIFFERENTIAL 04:28:00 [place] BASIC METABOLIC PANEL 2021-08-20 [facility], [facility] 04:28:00 [place] MAGNESIUM 2021-08-20 [facility], [facility] 04:28:00 [place] PHOSPHORUS 2021-08-20 [facility], [facility] 04:28:00 [place] CBC W/PLT COUNT & AUTO 2021-08-20 [facility], [facility] DIFFERENTIAL 04:28:00 [place] POCT-GLUCOSE METER 2021-08-19 [facility], [facility] 19:04:00 [place] POCT-GLUCOSE METER 2021-08-19 Isaac Meehan [facility] 11:51:00 [place] XR ABDOMEN/KUB 1 VIEW 2021-08-19 Negre[facility], [facility] PORTABLE 10:50:00 [place] CENTRAL LINE 2021-08-19 Negrete, [facility] ical 10:41:04 [place] US GUIDE, VASCULAR 2021-08-19 Negrete, Pilar [facility] ACCESS 10:41:04 [place] XR CHEST 1 VIEW 2021-08-19 Negrete, [facility] ical PORTABLE / BEDSIDE 10:35:00 [place] SARS-COV2/RT-PCR ([facility] 2021-08-19 Negrete, [facility] Medical & REF LABS) 09:43:00 [place] INTUBATION 2021-08-19 TysonDemetrius [facility] 09:37:37 [place] BLOOD GAS, ARTERIAL 2021-08-19 [facility]rete, [facility] 09:34:00 [place] POCT-GLUCOSE METER 2021-08-19 [facility]oran [facility] 08:10:00 [place] POCT-GLUCOSE METER 2021-08-19 Zoran [facility] 06:08:00 [place] CBC W/PLT COUNT & AUTO 2021-08-19 Juaquin, Mobin [facility] DIFFERENTIAL 03:37:00 [place] BASIC METABOLIC PANEL 2021-08-19 Juaquin, Mobin [facility] 03:37:00 [place] CBC W/PLT COUNT & AUTO 2021-08-19 [facility] 03:37:00 [place] POCT-GLUCOSE METER 2021-08-18 Zoran [facility] 21:06:00 [place] MR BRAIN WITHOUT IV 2021-08-18 Juaquin, Mobbrit [facility] CONTRAST 15:58:[address] [address] BRAIN WITHOUT IV 2021-08-18 Negrete, [facility] Medical CONTRAST 15:56:00 [place] POCT-GLUCOSE METER 2021-08-18 Isaac Meehan [facility] 10:36:00 [place] CBC W/PLT COUNT & AUTO 2021-08-18 Vellanbutch [facility] Medical DIFFERENTIAL 09:53:00 [place] COMPREHENSIVE METABOLIC 2021-08-18 Emekalanbutch Vinitha [facility] Medical PANEL 09:53:00 [place] MAGNESIUM 2021-08-18 Negrete, [facility] Med ical 09:53:00 [place] CBC W/PLT COUNT & AUTO 2021-08-18 [facility] DIFFERENTIAL 09:53:00 [place] POCT-GLUCOSE METER 2021-08-18 Zoran [facility] 08:48:00 [place] POCT-GLUCOSE METER 2021-08-17 Zoran [facility] 17:29:00 [place] POCT-GLUCOSE METER 2021-08-17 Zoran [facility] 12:33:00 [place] POCT-GLUCOSE METER 2021-08-17 Zoran, Isaac [facility] Medical 10:39:00 [place] COMPREHENSIVE METABOLIC 2021-08-17 Zoran Isaac Staples [facility] Medical PANEL 04:57:00 [place] CBC W/PLT COUNT & AUTO 2021-08-17 Zoran Isaac [facility] DIFFERENTIAL 04:57:00 [place] MAGNESIUM 2021-08-17 Zoran Isaac Smitharicky [facility] edical 04:57:00 [place] CBC W/PLT COUNT & AUTO 2021-08-17 Zoran Isaac [facility]North [facility] Medical DIFFERENTIAL 04:57:00 [place] IR TUNNELED CATHETER 2021-08-16 Jenifer Santos [facility] Medical INSERTION 10:00:00 [place] COMPREHENSIVE METABOLIC 2021-08-16 Zoran, Isaac Staples [facility] Medical PANEL 04:57:00 [place] CBC W/PLT COUNT & AUTO 2021-08-16 Zoran Isaac [facility]North [facility] Medical DIFFERENTIAL 04:57:00 [place] MAGNESIUM 2021-08-16 Zoran, Isaac Smitharicky [facility] ed[facility] 04:57:00 [place] CBC W/PLT COUNT & AUTO 2021-08-16 Zoran, Isaac Staples [facility] DIFFERENTIAL 04:57:00 [place] GI PATHOGEN PROFILE BY 2021-08-[address] [facility] Medical PCR 14:45:00 Center CALCIUM, IONIZED 2021-08-[address] [facility] s Medical 03:35:00 [place] COMPREHENSIVE METABOLIC 2021-08-15 Zoran, Isaac Galiciaricky [facility] PANEL 03:35:00 [place] CBC W/PLT COUNT & AUTO 2021-08-15 Zoran, Isaac Smitharicky [facility] DIFFERENTIAL 03:35:00 [place] MAGNESIUM 2021-08-15 ZoranMarianela alegriageorgette Smitharicky [facility] edical 03:35:00 [place] HEPATITIS B SURFACE 2021-08-15 Yo Forte [facility] ANTIGEN 03:35:00 [place] HEPATITIS B SURFACE 2021-08-15 Jann [facility] ANTIBODY 03:35:00 [place] CBC W/PLT COUNT & AUTO 2021-08-15 Isaac Meehan Jhoan [facility] DIFFERENTIAL 03:35:00 [place] PREPARE LEUKO-REDUCED 2021-08-13 Isaac Meehantheo [facility] RBC 23:55:00 [place] BASIC METABOLIC PANEL 2021-08-13 Jann [facility] 16:45:00 [place] CBC W/PLT COUNT & AUTO 2021-08-13 Jann [facility] DIFFERENTIAL 16:45:00 [place] CALCIUM, IONIZED 2021-08-13 Jann [facility] 16:45:00 [place] CBC W/PLT COUNT & AUTO 2021-08-13 Jann [facility] DIFFERENTIAL 16:45:00 [place] PHOSPHORUS 2021-08-13 Jann, [facility] 10:59:00 [place] C. DIFFICILE GDH TOXIN 2021-08-13 Jann [facility] 10:12:00 [place] COMPREHENSIVE METABOLIC 2021-08-[address] [facility] Medical PANEL 04:52:00 [place] CBC W/PLT COUNT & AUTO 2021-08-13 Brendan Hinojosa [facility] DIFFERENTIAL 04:52:00 [place] MAGNESIUM 2021-08-13 Isaac Meehan [facility] M edical 04:52:00 [place] CBC W/PLT COUNT & AUTO 2021-08-13 Brendan Hinojosa [facility] DIFFERENTIAL 04:52:00 [place] BASIC METABOLIC PANEL 2021-08-12 CesarZheng [facility] Medical 19:40:00 [place] TRANSFUSE LEUKO-REDUCED 2021-08-12 Isaac Meehan [facility] Hospitalgisel[facility] RED BLOOD CELLS 14:28:00 Center TYPE AND SCREEN, 2021-08-12 Isaac Meehan [facility] AUTOMATED 10:56:00 [place] COMPREHENSIVE METABOLIC 2021-08-[address] I [address] [facility] Medical PANEL 02:57:00 [place] CBC W/PLT COUNT & AUTO 2021-08-12 Pipokarina, Brendan [facility] DIFFERENTIAL 02:57:00 [place] FERRITIN 2021-08-12 Cesar, Zheng [facility] ical 02:57:00 [place] MAGNESIUM 2021-08-12 [address] [facility] ed[facility] 02:57:00 [place] CBC W/PLT COUNT & AUTO 2021-08-[address]ir [facility] DIFFERENTIAL 02:57:00 [place] BASIC METABOLIC PANEL 2021-08-11 Cesar, Zheng [facility] 18:00:00 [place] MAGNESIUM 2021-08-11 Cesar, Zheng [facility] ical 18:00:00 [place] 2D ECHO W/ DOPPLER 2021-08-[address] [facility] (CW/PW/COLOR) 13:37:08 [place] COMPREHENSIVE METABOLIC 2021-08-[address] bashir I [facility] Medical PANEL 04:42:00 [place] CBC W/PLT COUNT & AUTO 2021-08-11 Garrettgmanavarak, Brendan [facility] DIFFERENTIAL 04:42:00 [place] HEMOGLOBIN A1C 2021-08-11 Garrettgvacalbertaaramckay, BrendanWabash [facility] 04:42:00 [place] LIPID PANEL 2021-08-11 Pongvachararak, BrendanWabash County [facility] 04:42:00 [place] MAGNESIUM 2021-08-11 Cesar, Zheng [facility] ical 04:42:00 [place] IRON, TIBC, % SAT. 2021-08-11 Cesar, Zheng [facility] (WITHOUT FERRITIN) 04:42:00 [place] CBC W/PLT COUNT & AUTO 2021-08-11 Garrettgvachararak, Brendan [facility] DIFFERENTIAL 04:42:00 [place] CARDIAC CATH REPORT - 2021-08-11 Provider, [facility] Medical SCAN 00:00:00 Scanning Center EKG-SCANNED 2021-08-11 Provider, Default CLAYTON Hsieh M edical 00:00:00 [facility] AUTHORIZATION FOR 2020-01-30 Doctor Unassigned, No [facility] RELEASE OF PHI 06:01:00 Name [facility] MEDICAL 2019-05-23 Doctor Unassigned, No [facility] RELEASE/CLEARANCE FORMS 06:01:00 [facility] AUTHORIZATION FOR 2019-05-12 Doctor Unassigned, No [facility] RELEASE OF PHI 06:01:00 [facility] Breast Reduction [facility] Medical Total Knee Replacement [facility] Me dical Hysterectomy [facility] Medical Plan of Care Planned Activity Planned Date Details Comments Source Future Scheduled 2028-01-[address] [facility] 00:00:00 malignant neoplasm Medical C enter of colon (procedure) [code = 145025122] Future Scheduled 2028-01-[address] [facility] 00:00:00 malignant neoplasm Medical C enter of colon (procedure) [code = 278149833] Future Scheduled 2028-01-[address] [facility] 00:00:00 malignant neoplasm Medical C enter of colon (procedure) [code = 223779439] Future Scheduled 2028-01-[address] [facility] Test 00:00:00 malignant neoplasm Medical C enter of colon (procedure) [code = 923602389] Future Scheduled 2028-01-[address] [facility] Test 00:00:00 malignant neoplasm Medical C enter of colon (procedure) [code = 882250749] Future Scheduled 2028-01-[address] [facility] 00:00:00 malignant neoplasm Medical C enter of colon (procedure) [code = 483655926] Future Scheduled 2024-08-[address] [facility] Test 00:00:00 (procedure) [code = [facility] 35210497] Future Scheduled 2024-08-[address] [facility] Test 00:00:00 (procedure) [code = [facility] 72504600] Future Scheduled 2024-08-[address] [facility] Test 00:00:00 (procedure) [code = [facility] 82478118] Future Scheduled 2024-08-[address] [facility] Test 00:00:00 (procedure) [code = [facility] 58434940] Future Scheduled 2024-08-[address] [facility] Test 00:00:00 (procedure) [code = [facility] 43081063] Future Scheduled 2022-09-[address] [facility] Test 00:00:00 [facility] r Screening (12+) [code = Tobacco Cessation Counseling and Screening (12+)] Future Scheduled 2022-03-17 BREAST CANCER [facility] 17:07:51 SCREENING [code = Hospital BREAST CANCER SCREENING] Future Scheduled 2022-03-17 COLONOSCOPY [facility] 17:07:51 SCREENING [code = Hospital COLONOSCOPY SCREENING] Future Scheduled 2022-03-17 INFLUENZA VACCINE Method ist Test 17:07:51 [code = INFLUENZA Hospital VACCINE] Future Scheduled 2022-03-17 COVID-[address] Test 17:07:51 (#1) [code = Hospital COVID-19 VACCINE (#1)] Future Scheduled 2022-03-17 Pneumococcal [facility] 17:07:51 Vaccine: Pediatrics Hospital (0 to 5 Years) and At-Risk Patients (6 to 64 Years) (1 - PCV) [code = Pneumococcal Vaccine: Pediatrics (0 to 5 Years) and At-Risk Patients (6 to 64 Years) (1 - PCV)] Future Scheduled 2022-03-17 Hepatitis C [facility] 17:07:51 screening Hospital (procedure) [code = 725062709] Future Scheduled 2022-03-17 SHINGLES VACCINES (1 Met hodist Test 17:07:51 of 2) [code = Hospital SHINGLES VACCINES (1 of 2)] Future Scheduled 2022-03-17 Screening for [facility] 17:07:51 malignant neoplasm Hospital of cervix (procedure) [code = 559524683] Future Scheduled 2022-02-13 COLONOSCOPY [facility] 15:03:07 SCREENING [code = Hospital COLONOSCOPY [...] COVID-19 VACCINE (#1)] Future Scheduled 2022-02-13 Pneumococcal [facility] 15:03:07 Vaccine: [facility] (0 to 5 Years) and At-Risk Patients (6 to 64 Years) (1 - PCV) [code = Pneumococcal Vaccine: Pediatrics (0 to 5 Years) and At-Risk Patients (6 to 64 Years) (1 - PCV)] Future Scheduled 2022-02-13 Hepatitis C [facility] 15:03:07 screening Hospital (procedure) [code = [id number]] Future Scheduled 2022-02-13 SHINGLES VACCINES (1 [facility] 15:03:07 of 2) [code = Hospital SHINGLES VACCINES (1 of 2)] Future Scheduled 2022-02-13 Screening for [facility] 15:03:07 malignant neoplasm [facility] of cervix (procedure) [code = 600425262] Future Scheduled 2022-02-13 BREAST CANCER [facility] Test 15:03:07 SCREENING [code = Hospital BREAST CANCER SCREENING] Future Scheduled 2022-02-[address] [facility] (procedure) [code = 72651703] Future Scheduled 2022-02-[address] [facility] (procedure) [code = 76390304] Future Scheduled 2022-02-[address] [facility] (procedure) [code = 25820049] Future Scheduled 2022-02-[address] [facility] (procedure) [code = 88978346] Future Scheduled 2022-02-[address] [facility] (procedure) [code = 18329692] Future Scheduled 2022-02-06 HEPATITIS B VACCINES [facility] 08:04:10 (1 of 3 - 3-dose Hospital series) [code = HEPATITIS B VACCINES (1 of 3 - 3-dose series)] Future Scheduled 2022-02-06 COVID-[address] [facility] 08:04:10 (#1) [code = Hospital COVID-19 VACCINE (#1)] Future Scheduled 2022-02-06 Pneumococcal [facility] 08:04:10 Vaccine: [facility] (0 to 5 Years) and At-Risk Patients (6 to 64 Years) (1 - PCV) [code = Pneumococcal Vaccine: Pediatrics (0 to 5 Years) and At-Risk Patients (6 to 64 Years) (1 - PCV)] Future Scheduled 2022-02-06 Hepatitis C [facility] 08:04:10 screening Hospital (procedure) [code = 346021458] Future Scheduled 2022-02-06 SHINGLES VACCINES (1 [facility] 08:04:10 of 2) [code = Hospital SHINGLES VACCINES (1 of 2)] Future Scheduled 2022-02-06 Screening for [facility] 08:04:10 malignant neoplasm [facility] of cervix (procedure) [code = 805404359] Future Scheduled 2022-02-06 BREAST CANCER [facility] 08:04:10 SCREENING [code = Hospital BREAST CANCER SCREENING] Future Scheduled 2022-02-06 COLONOSCOPY [facility] 08:04:10 SCREENING [code = Hospital COLONOSCOPY [...] 19 yrs)] Future Scheduled 2021-12-24 IMM [facility] 00:[facility]:00 Seasonal (>/= 19 [...] COVID-19 VACCINE (#1)] Future Scheduled 2021-10-13 Pneumococcal [facility] 06:56:00 Vaccine: [facility] (0 to 5 Years) and At-Risk Patients (6 to 64 Years) (1 - PCV) [code = Pneumococcal Vaccine: Pediatrics (0 to 5 Years) and At-Risk Patients (6 to 64 Years) (1 - PCV)] Future Scheduled 2021-10-13 Hepatitis C [facility] 06:56:00 screening Hospital (procedure) [code = 387516159] Future Scheduled 2021-10-13 SHINGLES VACCINES (1 [facility] 06:56:00 of 2) [code = Hospital SHINGLES VACCINES (1 of 2)] Future Scheduled 2021-10-13 Screening for [facility] 06:56:00 malignant neoplasm [facility] cerv[facility] (procedure) [code = 277480490] Future Scheduled 2021-10-13 BREAST CANCER [facility] 06:56:00 SCREENING [code = Hospital BREAST CANCER SCREENING] Future Scheduled 2021-10-13 COLONOSCOPY [facility] 06:56:00 SCREENING [code = Hospital COLONOSCOPY SCREENING] Future Scheduled 2021-10-13 INFLUENZA VACCINE [facility] 06:56:00 [code = INFLUENZA Hospital VACCINE] Future Scheduled 2021-09-21 COVID-19 VACCINE (1) [facility] 10:27:20 [code = COVID-19 Hospital VACCINE (1)] Future Scheduled 2021-09-21 Pneumococcal [facility] 10:27:20 Vaccine: [facility] (0 to 5 Years) and At-Risk Patients (6 to 64 Years) (1 - PCV) [code = Pneumococcal Vaccine: Pediatrics (0 to 5 Years) and At-Risk Patients (6 to 64 Years) (1 - PCV)] Future Scheduled 2021-09-21 Hepatitis C [facility] 10:27:20 screening Hospital (procedure) [code = 686141467] Future Scheduled 2021-09-21 SHINGLES VACCINES (1 [facility] 10:27:20 of 2) [code = Hospital SHINGLES VACCINES (1 of 2)] Future Scheduled 2021-09-21 Screening for [facility] 10:27:20 malignant neoplasm [facility] (procedure) [code = 232806783] Future Scheduled 2021-09-21 BREAST CANCER [facility] 10:27:20 SCREENING [code = Hospital BREAST CANCER SCREENING] Future Scheduled 2021-09-21 COLONOSCOPY [facility] 10:27:20 SCREENING [code = Hospital COLONOSCOPY SCREENING] Future Scheduled 2021-09-21 INFLUENZA VACCINE [facility] 10:27:20 [code = INFLUENZA Hospital VACCINE] Future Scheduled 2021-08-25 INFLUENZA VACCINE [facility] 09:02:31 [code = INFLUENZA Hospital VACCINE] Future Scheduled 2021-08-25 COVID-19 VACCINE (1) [facility] 09:02:31 [code = COVID-19 Hospital VACCINE (1)] Future Scheduled 2021-08-25 Pneumococcal [facility] 09:02:31 Vaccine: [facility] (0 to 5 Years) and At-Risk Patients (6 to 64 Years) (1 - PCV) [code = Pneumococcal Vaccine: Pediatrics (0 to 5 Years) and At-Risk Patients (6 to 64 Years) (1 - PCV)] Future Scheduled 2021-08-25 Hepatitis C [facility] 09:02:31 screening Hospital (procedure) [code = 495288842] Future Scheduled 2021-08-25 SHINGLES VACCINES (1 [facility] 09:02:31 of 2) [code = Hospital SHINGLES VACCINES (1 of 2)] Future Scheduled 2021-08-25 Screening for [facility] 09:02:31 malignant neoplasm Hospital [facility] cerv[facility] (procedure) [code = 211672849] Future Scheduled 2021-08-25 BREAST CANCER [facility] 09:02:31 SCREENING [code = Hospital BREAST CANCER SCREENING] Future Scheduled 2021-08-25 COLONOSCOPY [facility] 09:02:31 SCREENING [code = Hospital COLONOSCOPY SCREENING] Future Scheduled 2021-08-25 INFLUENZA VACCINE [facility] 09:02:31 [code = INFLUENZA Hospital VACCINE] Future Scheduled 2021-08-25 COVID-19 VACCINE (1) [facility] 09:02:31 [code = COVID-19 Hospital VACCINE (1)] Future Scheduled 2021-08-25 Pneumococcal [facility] 09:02:31 Vaccine: [facility] (0 to 5 Years) and At-Risk Patients (6 to 64 Years) (1 - PCV) [code = Pneumococcal Vaccine: Pediatrics (0 to 5 Years) and At-Risk Patients (6 to 64 Years) (1 - PCV)] Future Scheduled 2021-08-25 Hepatitis C [facility] 09:02:31 screening Hospital (procedure) [code = 261257280] Future Scheduled 2021-08-25 SHINGLES VACCINES (1 [facility] 09:02:31 of 2) [code = Hospital SHINGLES VACCINES (1 of 2)] Future Scheduled 2021-08-25 Screening for [facility] 09:02:31 malignant neoplasm Hospital [facility] cervix (procedure) [code = 019589869] Future Scheduled 2021-08-25 BREAST CANCER [facility] 09:02:31 SCREENING [code = Hospital BREAST CANCER SCREENING] Future Scheduled 2021-08-25 COLONOSCOPY [facility] 09:02:31 SCREENING [code = Hospital COLONOSCOPY SCREENING] Future Scheduled 2021-08-25 INFLUENZA VACCINE [facility] 09:02:31 [code = INFLUENZA Hospital VACCINE] Future Scheduled 2021-08-25 COVID-19 VACCINE (1) [facility] 09:02:31 [code = COVID-19 Hospital VACCINE (1)] Future Scheduled 2021-08-25 Pneumococcal [facility] 09:02:31 Vaccine: [facility] (0 to 5 Years) and At-Risk Patients (6 to 64 Years) (1 - PCV) [code = Pneumococcal Vaccine: Pediatrics (0 to 5 Years) and At-Risk Patients (6 to 64 Years) (1 - PCV)] Future Scheduled 2021-08-25 Hepatitis C [facility] 09:02:31 screening Hospital (procedure) [code = 680048543] Future Scheduled 2021-08-25 COVID-19 VACCINE (1) [facility] 09:02:31 [code = COVID-19 Hospital VACCINE (1)] Future Scheduled 2021-08-25 SHINGLES VACCINES (1 [facility] 09:02:31 of 2) [code = Hospital SHINGLES VACCINES (1 of 2)] Future Scheduled 2021-08-25 Screening for [facility] 09:02:31 malignant neoplasm Hospital [facility] cerv[facility] (procedure) [code = 686545641] Future Scheduled 2021-08-25 BREAST CANCER [facility] 09:02:31 SCREENING [code = Hospital BREAST CANCER SCREENING] Future Scheduled 2021-08-25 COLONOSCOPY [facility] 09:02:31 SCREENING [code = Hospital COLONOSCOPY SCREENING] Future Scheduled 2021-08-25 INFLUENZA VACCINE [facility] 09:02:31 [code = INFLUENZA Hospital VACCINE] Future Scheduled 2021-08-25 COVID-19 VACCINE (1) [facility] 09:02:31 [code = COVID-19 Hospital VACCINE (1)] Future Scheduled 2021-08-25 Pneumococcal [facility] 09:02:31 Vaccine: [facility] (0 to 5 Years) and At-Risk Patients (6 to 64 Years) (1 - PCV) [code = Pneumococcal Vaccine: Pediatrics (0 to 5 Years) and At-Risk Patients (6 to 64 Years) (1 - PCV)] Future Scheduled 2021-08-25 Hepatitis C [facility] 09:02:31 screening Hospital (procedure) [code = 236375488] Future Scheduled 2021-08-25 SHINGLES VACCINES (1 [facility] 09:02:31 of 2) [code = Hospital SHINGLES VACCINES (1 of 2)] Future Scheduled 2021-08-25 Screening for [facility] 09:02:31 malignant neoplasm [facility] cerv[facility] (procedure) [code = 267867410] Future Scheduled 2021-08-25 Pneumococcal [facility] 09:02:31 Vaccine: [facility] (0 to 5 Years) and At-Risk Patients (6 to 64 Years) (1 - PCV) [code = Pneumococcal Vaccine: Pediatrics (0 to 5 Years) and At-Risk Patients (6 to 64 Years) (1 - PCV)] Future Scheduled 2021-08-25 BREAST CANCER [facility] 09:02:31 SCREENING [code = Hospital BREAST CANCER SCREENING] Future Scheduled 2021-08-25 COLONOSCOPY [facility] 09:02:31 SCREENING [code = Hospital COLONOSCOPY SCREENING] Future Scheduled 2021-08-25 INFLUENZA VACCINE [facility] 09:02:31 [code = INFLUENZA Hospital VACCINE] Future Scheduled 2021-08-25 COVID-19 VACCINE (1) [facility] 09:02:31 [code = COVID-19 Hospital VACCINE (1)] Future Scheduled 2021-08-25 Pneumococcal [facility] 09:02:31 Vaccine: [facility] (0 to 5 Years) and At-Risk Patients (6 to 64 Years) (1 - PCV) [code = Pneumococcal Vaccine: Pediatrics (0 to 5 Years) and At-Risk Patients (6 to 64 Years) (1 - PCV)] Future Scheduled 2021-08-25 Hepatitis C [facility] 09:02:31 screening Hospital (procedure) [code = 800310400] Future Scheduled 2021-08-25 SHINGLES VACCINES (1 [facility] 09:02:31 of 2) [code = Hospital SHINGLES VACCINES (1 of 2)] Future Scheduled 2021-08-25 Screening for [facility] 09:02:31 malignant neoplasm [facility] (procedure) [code = 655106537] Future Scheduled 2021-08-25 BREAST CANCER [facility] 09:02:31 SCREENING [code = Hospital BREAST CANCER SCREENING] Future Scheduled 2021-08-25 COLONOSCOPY [facility] 09:02:31 SCREENING [code = Hospital COLONOSCOPY SCREENING] Future Scheduled 2021-08-25 Hepatitis C [facility] 09:02:31 screening Hospital (procedure) [code = 812688845] Future Scheduled 2021-08-25 INFLUENZA VACCINE [facility] 09:02:31 [code = INFLUENZA Hospital VACCINE] Future Scheduled 2021-08-25 COVID-19 VACCINE (1) [facility] 09:02:31 [code = COVID-19 Hospital VACCINE (1)] Future Scheduled 2021-08-25 Pneumococcal [facility] 09:02:31 Vaccine: [facility] (0 to 5 Years) and At-Risk Patients (6 to 64 Years) (1 - PCV) [code = Pneumococcal Vaccine: Pediatrics (0 to 5 Years) and At-Risk Patients (6 to 64 Years) (1 - PCV)] Future Scheduled 2021-08-25 Hepatitis C [facility] 09:02:31 screening Hospital (procedure) [code = 551766276] Future Scheduled 2021-08-25 SHINGLES VACCINES (1 [facility] 09:02:31 of 2) [code = Hospital SHINGLES VACCINES (1 of 2)] Future Scheduled 2021-08-25 Screening for [facility] 09:02:31 malignant neoplasm [facility] of cervix (procedure) [code = 590229125] Future Scheduled 2021-08-25 BREAST CANCER [facility] Test 09:02:31 SCREENING [code = Hospital BREAST CANCER SCREENING] Future Scheduled 2021-08-25 COLONOSCOPY [facility] 09:02:31 SCREENING [code = Hospital COLONOSCOPY SCREENING] Future Scheduled 2021-08-25 INFLUENZA VACCINE [facility] 09:02:31 [code = INFLUENZA Hospital VACCINE] Future Scheduled 2021-08-25 COVID-19 VACCINE (1) [facility] 09:02:31 [code = COVID-19 Hospital VACCINE (1)] Future Scheduled 2021-08-25 SHINGLES VACCINES (1 [facility] 09:02:31 of 2) [code = Hospital SHINGLES VACCINES (1 of 2)] Future Scheduled 2021-08-25 Pneumococcal [facility] 09:02:31 Vaccine: [facility] (0 to 5 Years) and At-Risk Patients (6 to 64 Years) (1 - PCV) [code = Pneumococcal Vaccine: Pediatrics (0 to 5 Years) and At-Risk Patients (6 to 64 Years) (1 - PCV)] Future Scheduled 2021-08-25 Hepatitis C [facility] 09:02:31 screening Hospital (procedure) [code = 333564811] Future Scheduled 2021-08-25 SHINGLES VACCINES (1 [facility] 09:02:31 of 2) [code = Hospital SHINGLES VACCINES (1 of 2)] Future Scheduled 2021-08-25 Screening for [facility] 09:02:31 malignant neoplasm [facility] of cervix (procedure) [code = 117105722] Future Scheduled 2021-08-25 BREAST CANCER [facility] 09:02:31 SCREENING [code = Hospital BREAST CANCER SCREENING] Future Scheduled 2021-08-25 COLONOSCOPY [facility] 09:02:31 SCREENING [code = Hospital COLONOSCOPY SCREENING] Future Scheduled 2021-08-25 INFLUENZA VACCINE [facility] 09:02:31 [code = INFLUENZA Hospital VACCINE] Future Scheduled 2021-08-25 Screening for [facility] 09:02:31 malignant neoplasm [facility] of cervix (procedure) [code = 819074430] Future Scheduled 2021-08-25 BREAST CANCER [facility] 09:02:31 SCREENING [code = Hospital BREAST CANCER SCREENING] Future Scheduled 2021-08-25 COLONOSCOPY [facility] 09:02:31 SCREENING [code = Hospital COLONOSCOPY [...] C enter of breast (procedure) [code = 134264456] Future Scheduled 2020-11-[address] [facility] neoplasm [facility] breast (procedure) [code = 997578351] Future Scheduled 2020-11-[address] [facility] 00:00:00 malignant neoplasm [facility] breast (procedure) [code = 197042169] Future Scheduled 2020-11-[address] [facility] 00:00:00 malignant neoplasm [facility] breast (procedure) [code = 269432218] Future Scheduled 2020-11-[address] [facility] 00:00:00 malignant neoplasm [facility] of breast (procedure) [code = 819789139] Future Scheduled 2020-06-23 [facility] neoplasm of cervix (procedure) [code = 316000610] Future Scheduled 2020-06-23 [facility] 00:[facility]:00 malignant neoplasm of cervix (procedure) [code = 504527675] Future Scheduled 2020-06-23 [facility] 00:[facility]:00 malignant neoplasm of cervix (procedure) [code = 942193590] Future Scheduled 2020-06-23 [facility] 00:[facility]:00 malignant neoplasm of cervix (procedure) [code = 723723823] Future Scheduled 2020-06-23 [facility] 00:[facility]:00 malignant neoplasm of cervix (procedure) [code = 123350752] Future Scheduled 2020-06-23 [facility] 00:[facility]:00 malignant neoplasm of cervix (procedure) [code = 765172089] Future Scheduled 2020-06-23 [facility] 00:[facility]:00 malignant neoplasm of cervix (procedure) [code = 498317259] Future Scheduled 2020-06-23 [facility] 00:[facility]:00 malignant neoplasm of cervix (procedure) [code = 696807350] Future Scheduled 2020-06-23 [facility] 00:[facility]:00 malignant neoplasm of cervix (procedure) [code = 853184352] Future Scheduled 2020-06-23 [facility]:00 malignant neoplasm of cervix (procedure) [code = 689991148] Future Scheduled 2020-06-23 [facility] 00:[facility]:00 malignant neoplasm of cervix (procedure) [code = 859603642] Future Scheduled 2020-06-23 [facility] 00:[facility]:00 malignant neoplasm of cervix (procedure) [code = 956431269] Future Scheduled 2020-06-23 [facility]:00 malignant neoplasm of cervix (procedure) [code = 498226088] Future Scheduled 2019-03-[address] [facility] 00:[facility]:00 malignant neoplasm [facility] enter of colon (procedure) [code = 747956161] Future Scheduled 2019-03-[address] [facility] 00:00:00 malignant neoplasm [facility] enter of colon (procedure) [code = 054693715] Future Scheduled 2019-03-[address] [facility] 00:00:00 malignant neoplasm [facility] enter of colon (procedure) [code = 956140365] Future Scheduled 2019-03-[address] [facility] 00:00:00 malignant neoplasm [facility] enter of colon (procedure) [code = 496497958] Future Scheduled 2019-03-[address] [facility] 00:00:00 malignant neoplasm [facility] enter of colon (procedure) [code = 221747746] Future Scheduled 2019-03-[address] [facility] 00:00:00 malignant neoplasm [facility] enter of colon (procedure) [code = 105843521] Future Scheduled 2019-03-[address] [facility] 00:00:00 malignant neoplasm [facility] enter of colon (procedure) [code = 869506529] Future Scheduled 2018-11-[address] [...] malignant neoplasm of colon (procedure) [code = 831838801] Future Scheduled 2017-04-21 [facility] 00:[facility]:00 malignant neoplasm of colon (procedure) [code = 070961611] Future Scheduled 2017-04-21 [facility] 00:[facility]:00 malignant neoplasm of colon (procedure) [code = 426748398] Future Scheduled 2017-04-21 [facility] 00:[facility]:00 malignant neoplasm of colon (procedure) [code = 467767824] Future Scheduled 2017-04-21 [facility] 00:[facility]:00 malignant neoplasm of colon (procedure) [code = 151363749] Future Scheduled 2017-04-21 [facility] 00:[facility]:00 malignant neoplasm of colon (procedure) [code = 489943827] Future Scheduled 2017-04-21 [facility] 00:[facility]:00 malignant neoplasm of colon (procedure) [code = 475703749] Future Scheduled 2017-04-21 [facility] 00:[facility]:00 malignant neoplasm of colon (procedure) [code = 320191022] Future Scheduled 2017-04-21 [facility] 00:[facility]:00 malignant neoplasm of colon (procedure) [code = 611619905] Future Scheduled 2017-04-21 [facility] 00:[facility]:00 malignant neoplasm of colon (procedure) [code = 015148995] Future Scheduled 2017-04-21 [facility] 00:[facility]:00 malignant neoplasm of colon (procedure) [code = 724710169] Future Scheduled 2017-04-21 [facility] 00:[facility]:00 malignant neoplasm of colon (procedure) [code = 258128310] Future Scheduled 2017-04-21 [facility] 00:[facility]:00 malignant neoplasm of colon (procedure) [code = 198878429] Future Scheduled 2016-01-[address] [facility] [code = [facility] SHINGLES VACCINES (1 of 2)] Future Scheduled 2013 SHINGLES VACCINES ([address] [facility] 00:00:00 of 2) [code = [facility] SHINGLES VACCINES (1 of 2)] Future Scheduled 2013 SHINGLES VACCINES ([address] [facility] 00:00:00 of 2) [code = [facility] SHINGLES VACCINES (1 of 2)] Future Scheduled 1993 [facility]:00 malignant neoplasm of cervix (procedure) [code = 556416737] Future Scheduled 1993 [facility] 00:[facility]:00 malignant neoplasm of cervix (procedure) [code = 853273715] Future Scheduled 1993 [facility] 00:[facility]:00 malignant neoplasm of cervix (procedure) [code = 155867207] Future Scheduled 1993 [facility] 00:00:00 malignant neoplasm of cervix (procedure) [code = 645346966] Future Scheduled 1993 [facility] 00:[facility]:00 malignant neoplasm of cervix (procedure) [code = 891761042] Future Scheduled 1993 [facility] 00:[facility]:00 malignant neoplasm of cervix (procedure) [code = 829534408] Future Scheduled 1993 [facility] 00:00:00 malignant neoplasm of cervix (procedure) [code = 876067422] Future Scheduled 1993 [facility] 00:[facility]:00 malignant neoplasm of cervix (procedure) [code = 530620145] Future Scheduled 1993 [facility] 00:00:00 malignant neoplasm of cervix (procedure) [code = 609688062] Future Scheduled 1993 [facility] 00:00:00 malignant neoplasm of cervix (procedure) [code = 202519778] Future Scheduled 1993 [facility] 00:[facility]:00 malignant neoplasm of cervix (procedure) [code = 674925532] Future Scheduled 1993 [facility] 00:00:00 malignant neoplasm of cervix (procedure) [code = 309827495] Future Scheduled 1993 [facility] 00:[facility]:00 malignant neoplasm of cervix (procedure) [code = 365895852] Future Scheduled [address] [facility] 00:[facility]:00 malignant neoplasm [facility] enter of cervix (procedure) [code = 307495971] Future Scheduled [address] [facility] 00:00:00 malignant neoplasm [facility] enter of cervix (procedure) [code = 744360833] Future Scheduled [address] [facility] 00:00:00 malignant neoplasm [facility] enter of cervix (procedure) [code = 232435127] Future Scheduled [address] [facility] 00:00:00 malignant neoplasm [facility] enter of cervix (procedure) [code = 797388938] Future Scheduled [address] [facility] 00:00:00 malignant neoplasm [facility] enter of cervix (procedure) [code = 658107146] Future Scheduled 1982 [facility] examination [facility] (regime/therapy) [code = 375633933] Future Scheduled 1973 Urine screening [facility] 00:[facility]00 protein (procedure) [facility] [code = 606476808] Future Scheduled [address] DIAB[address] EYE EXAM [facility] 00:00:00 [code = DIABETIC EYE [facility] EXAM] Future Scheduled [address] [facility] examination [facility] (regime/therapy) [code = 288155109] Future Scheduled 1973 Urine screening for [facility] 00:00:00 protein (procedure) [facility] Center [code = 284704951] Future Scheduled [address] EYE EXAM [facility] 00:00:00 [code = DIABETIC EYE [facility] EXAM] Future Scheduled [address] [facility] examination [facility] (regime/therapy) [code = 241374883] Future Scheduled 1973 Urine screening for [facility] 00:00:00 protein (procedure) [facility] Center [code = 302024092] Future Scheduled [address] EYE EXAM [facility] 00:00:00 [code = DIABETIC EYE [facility] EXAM] Future Scheduled [address] [facility] 00[facility] examination [facility] (regime/therapy) [code = 780400673] Future Scheduled 1973 Urine screening for [facility] 00:00:00 protein (procedure) [facility] Center [code = 374940477] Future Scheduled [address] EYE EXAM [facility] 00:00:00 [code = DIABETIC EYE [facility] EXAM] Future Scheduled [address] [facility] 00:[facility]:00 [facility] (regime/therapy) [code = 782132497] Future Scheduled 1973 Urine screening [facility] 00:00:00 [facility] (procedure) [facility] [code = 807630962] Future Scheduled 1968 COVID-19 Vaccine [facility] 00:00:00 (#1) [code = COVID-19 Vaccine (#1)] Future Scheduled 1968 COVID-19 Vaccine [facility] Test 00:00:00 (#1) [code = COVID-19 Vaccine (#1)] Future Scheduled 1968 COVID-19 Vaccine [facility] Test 00:00:00 (#1) [code = COVID-19 Vaccine (#1)] Future Scheduled 1968 COVID-19 Vaccine [facility] Test 00:00:00 (#1) [code = COVID-19 Vaccine (#1)] Future Scheduled 1968 COVID-19 Vaccine [facility] Test 00:00:00 (#1) [code = COVID-19 Vaccine (#1)] Future Scheduled 1968 COVID-19 Vaccine [facility] Test 00:00:00 (#1) [code = COVID-19 Vaccine (#1)] Future Scheduled 1968 COVID-19 Vaccine [facility] Test 00:00:00 (#1) [code = COVID-19 Vaccine (#1)] Future Scheduled 1968 COVID-19 Vaccine [facility] Test 00:00:00 (#1) [code = COVID-19 [facility] [code [facility] COVID-19 VACCINE (#1)] Future Scheduled 1963 COVID-[address] [facility] 00:00:00 (#1) [code = [facility] COVID-19 VACCINE (#1)] Future Scheduled 1963 COVID-19 Vaccine [facility] 00:00:00 (#1) [code = COVID-19 Vaccine (#1)] Future Scheduled 1963 COVID-[address] [facility] 00:00:00 (#1) [code = [facility] COVID-19 VACCINE (#1)] Future Scheduled 1963 Fluoride Varnish [facility] Test 00:00:00 [code = Fluoride Varnish] Future Scheduled [address] [facility] Test 00:00:00 (combo) [code = CT Medical C enter Colonography (combo)] Future Scheduled [address] [facility] Test 00:00:00 malignant neoplasm Medical C enter of colon (procedure) [code = 621964953] Future Scheduled 1963 Sigmoidoscopy [code [facility] Test 00:00:00 = Sigmoidoscopy] Medical Krista ter Future Scheduled [address] [facility] Test 00:00:00 (combo) [code = CT Medical C enter Colonography (combo)] Future Scheduled [address] [facility] Test 00:00:00 malignant neoplasm Medical C enter of colon (procedure) [code = 365670618] Future Scheduled 1963 Sigmoidoscopy [code [facility] Test 00:00:00 = Sigmoidoscopy] Medical Krist[facility] ter Future Scheduled [address] [facility] Test 00:00:00 (combo) [code = CT Medical C enter Colonography (combo)] Future Scheduled [address] [facility] Test 00:00:00 malignant neoplasm Medical C enter of colon (procedure) [code = 222070177] Future Scheduled [address] [facility] Test 00:00:00 malignant neoplasm Medical C enter of colon (procedure) [code = 754119505] Future Scheduled 1963 Sigmoidoscopy [code [facility] Test 00:00:00 = Sigmoidoscopy] Medical [facility] Future Scheduled [address] [facility] Test 00:00:00 (combo) [code = CT Medical C enter Colonography (combo)] Future Scheduled [address] [facility] Test 00:00:00 malignant neoplasm Medical C enter of colon (procedure) [code = 638741126] Future Scheduled [address] [facility] Test 00:00:00 malignant neoplasm Medical C enter of colon (procedure) [code = 354042057] Future Scheduled 1963 Sigmoidoscopy [code [facility] Test 00:00:00 = Sigmoidoscopy] Medical [facility] ter Future Scheduled [address] [facility] Test 00:00:00 (combo) [code = CT Medical C enter Colonography (combo)] Future Scheduled [address] [facility] Test 00:00:00 malignant neoplasm Medical C enter of colon (procedure) [code = 272438376] Future Scheduled 1963 Sigmoidoscopy [code [facility] Test 00:00:00 = Sigmoidoscopy] Medical [facility] ter Future Scheduled ORT - XR SHOULDER Ordered: [facility] Test BILAT 4V (CHARGE 11/13/2019 of Medicine ONLY) [code = 64154] Future Scheduled ORT - XR SHOULDER Ordered: [facility] Test BILAT 4V (CHARGE 12/25/2019 of Medicine ONLY) [code = 60746] Future Scheduled COLON CANCER [facility] ege Test SCREENING: of Medicine COLONOSCOPY [code = COLON CANCER SCREENING: COLONOSCOPY] Future Scheduled MAMMOGRAM ANNUAL [facility] Test [code = MAMMOGRAM of Medicin e ANNUAL] Future Scheduled TETANUS SHOT (ADULT) [facility] Test [code = TETANUS SHOT of Medi cine (ADULT)] Future Scheduled Diabetic foot [facility] Col lege Test examination of Medicine (regime/therapy) [code = 416936702] Future Scheduled ANNUAL DIABETIC [facility] C ollege Test RETINOPATHY of Medicine [...] SCREENING] of Medicine Future Scheduled COLON CANCER [facility] ege Test SCREENING: of Medicine COLONOSCOPY [code = COLON CANCER SCREENING: COLONOSCOPY] Future Scheduled CERVICAL CANCER [facility] C ollege Test SCREENING 3 YEAR of Medicine FOLLOW UP [code = CERVICAL CANCER SCREENING 3 YEAR FOLLOW UP] Future Scheduled MEDICARE AWV [facility] Ru[facility] ege Test (Initial) [code = of Medicin e MEDICARE AWV (Initial)] Future Scheduled ZOSTER VACCINE (1 of [place] Test 2) [code = ZOSTER of Medicin e VACCINE (1 of 2)] Future Scheduled FLU VACCINE > 6 [place] [facility] Test MONTHS [code = FLU of Medici ne VACCINE > 6 MONTHS] Future Scheduled MAMMOGRAM ANNUAL [facility] College Test [code = MAMMOGRAM of Medicin e ANNUAL] Future Scheduled TETANUS SHOT (ADULT) [employer] Test [code = TETANUS SHOT of Medi cine (ADULT)] Future Scheduled BMI FOLLOW UP PLAN [employer] Test [code = BMI FOLLOW of Medici ne UP PLAN] Future Scheduled ORT - XR SHOULDER Ordered: [facility] College Test BILAT 4V (CHARGE 01/22/2020 of Medicine ONLY) [code = 28371] Future Scheduled ORT - XR ELBOW LEFT Ordered: [employer] Test 3V (CHARGE ONLY) 01/22/2020 of Medicine [code = 73422] Future Scheduled COLON CANCER [facility]ge Test SCREENING: of Medicine COLONOSCOPY [code = COLON CANCER SCREENING: COLONOSCOPY] Future Scheduled MAMMOGRAM ANNUAL [facility] College Test [code = MAMMOGRAM of Medicin e ANNUAL] Future Scheduled TETANUS SHOT (ADULT) [employer] Test [code = TETANUS SHOT of Medi cine (ADULT)] Future Scheduled Diabetic foot [employer] [facility] Test examination of Medicine (regime/therapy) [code = 591990116] Future Scheduled ANNUAL DIABETIC [facility] C ollege Test RETINOPATHY of Medicine SCREENING [code = ANNUAL DIABETIC RETINOPATHY SCREENING] Future Scheduled BMI FOLLOW UP PLAN [facility] r College Test [code = BMI FOLLOW of Medici ne UP PLAN] Future Scheduled HEPATITIS C [facility] ege Test SCREENING [code = of Medicin e HEPATITIS C SCREENING] Future Scheduled HEPATITIS C [facility]ge Test SCREENING [code = of Medicin e HEPATITIS C SCREENING] Future Scheduled HIV SCREENING [code [facility] or College Test = HIV SCREENING] of Medicine Future Scheduled CERVICAL CANCER [facility] C ollege Test SCREENING 3 YEAR of Medicine FOLLOW UP [code = CERVICAL CANCER SCREENING 3 YEAR FOLLOW UP] Future Scheduled MEDICARE AWV [facility]ge Test (Initial) [code = of Medicin e MEDICARE AWV (Initial)] Future Scheduled ZOSTER VACCINE (1 of [facility] College Test 2) [code = ZOSTER of Medicin e VACCINE (1 of 2)] Future Scheduled FLU VACCINE > 6 Postponed from [facility] Test MONTHS [code = FLU 10/25/2019 of Medici ne VACCINE > 6 MONTHS] (Postpone Reason: Patient declined today) Future Scheduled HIV SCREENING [code [facility] or College Test = HIV SCREENING] of Medicine Future Scheduled CERVICAL CANCER [facility] C ollege Test SCREENING 3 YEAR of Medicine FOLLOW UP [code = CERVICAL CANCER SCREENING 3 YEAR FOLLOW UP] Future Scheduled MEDICARE AWV [facility] Test (Initial) [code = of Medicin e MEDICARE AWV (Initial)] Future Scheduled ZOSTER VACCINE (1 of [facility] College Test 2) [code = ZOSTER of Medicin e VACCINE (1 of 2)] Future Scheduled FLU VACCINE > 6 [facility] C ollege Test MONTHS [code = FLU of Medici ne VACCINE > 6 MONTHS] Future Scheduled ORT - XR SHOULDER Ordered: [facility] Test BILAT 4V (CHARGE 11/27/2019 of Medicine ONLY) [code = 19675] Future Scheduled COLON CANCER [facility] Test SCREENING: of Medicine COLONOSCOPY [code = COLON CANCER SCREENING: COLONOSCOPY] Future Scheduled MAMMOGRAM ANNUAL [facility] Test [code = MAMMOGRAM of Medicin e ANNUAL] Future Scheduled TETANUS SHOT (ADULT) [facility] College Test [code = TETANUS SHOT of Medi cine (ADULT)] Future Scheduled Diabetic foot [facility] Col lege Test examination of Medicine (regime/therapy) [code = 890527393] Future Scheduled ANNUAL DIABETIC [facility] C ollege Test RETINOPATHY of Medicine SCREENING [code = ANNUAL DIABETIC RETINOPATHY SCREENING] Future Scheduled BMI FOLLOW UP PLAN [facility] r College Test [code = BMI FOLLOW of Medici ne UP PLAN] Future Scheduled HEPATITIS C [facility]ge Test SCREENING [code = of Medicin e HEPATITIS C SCREENING] Future Scheduled HIV SCREENING [code [employer] Test = HIV SCREENING] of Medicine Future Scheduled CERVICAL CANCER [facility] ollege Test SCREENING 3 YEAR of Medicine FOLLOW UP [code = CERVICAL CANCER SCREENING 3 YEAR FOLLOW UP] Future Scheduled MEDICARE AWV [facility]ge Test (Initial) [code = of Medicin e MEDICARE AWV (Initial)] Future Scheduled ZOSTER VACCINE (1 of [place] [employer] Test 2) [code = ZOSTER of Medicin e VACCINE (1 of 2)] Future Scheduled FLU VACCINE > 6 [place] C [facility]lege Test MONTHS [code = FLU of Medici ne VACCINE > [address] MONTHS] Future Scheduled CT SHOULDER RIGHT WO 1 Occurrences [employer] Test CONTRAST [code = starting of Medicine 99417] 11/13/2019 until 06/12/2020 Encounters Start End Encounter Admission Attending Care Care Encounter Source Date/Time Date/Time Type Type Clinicians Facility Department ID 2022-03-18 Outpatient 3 [facility] ENCPL CVA [id number] [facility] 06:12:06 heioana, 1224 [facility] [place] 2022-03-02 Inpatient 3 [facility] ENCPL CVA [id number] [facility] 13:25:00 heioana, 1208 [facility] [place] 2022-03-01 Outpatient 3 [id number] ENCPL REF [id number] [facility] 11:34:45 1207 [facility] [place] 2022-02-15 Outpatient 3 [id number] ENCPL REF [id number] [facility] 15:07:48 1123 [facility] [place] 2022-02-13 Outpatient [facility] [id number] [place] 15:10:15 Health 2022-01-31 Outpatient [facility] [id number] [place] 10:40:55 [facility] 2022-01-26 Outpatient [facility] [id number] [place] 16:42:22 Health 2021-12-06 Outpatient 3 [facility] ENCPL CVA [id number] [facility] 13:41:36 jordan, 0913 ss [facility] [place] 2021-12-02 Outpatient 3 [id number] ENCPL CVA [id number] [facility] 11:23:23 0909 [facility] [place] 2021-11-30 Outpatient 3 [id number] ENCPL CVA [id number] [facility] 08:22:36 0907 [facility] [place] 2021-11-29 Outpatient 3 [id number] ENCPL REF [id number] [facility] 14:03:26 0906 [facility] [place] 2021-09-05 Outpatient EL PALLISTER, [facility] Surgery [id number] [facility] 08:47:40 RIAZ 2021-08-30 Outpatient 3 [id number] ENCSL [place] [id number] [facility] 17:17:47 [facility] [place] 2021-08-15 Outpatient 3 [id number] ENCSL REF [id number] [facility] 11:40:53 [facility] 2021-04-22 Outpatient [facility] [id number] [place] 15:16:49 [facility] 2021-04-20 Outpatient Rey, STLMLC STLMLC [id number] Common 12:32:19 [facility] 8[address]84 [facility] 2021-04-20 Outpatient Rey, STLMLC STLMLC [id number] Common 12:22:07 [facility] 33749 [facility] 2021-04-20 Outpatient Rey, STLMLC STLMLC [id number] Common 12:18:27 [facility] 96852 [facility] 2021-04-20 Outpatient Rey, STLMLC STLMLC [id number] Common 12:05:36 [facility] 94651 [facility] 2021-04-20 Outpatient Rey, STLMLC STLMLC [id number] Common 11:56:16 [facility] 95737 [facility] 2021-04-20 Outpatient Rey, STLMLC STLMLC [id number] Common 11:53:33 [facility] 42337 [facility] 2021-04-20 Outpatient Rey, STLMLC STLMLC [id number] Common 11:48:09 Jose 69306 [facility] 2021-04-20 Outpatient Rey, STLMLC STLMLC [id number] Common 11:46:26 Jose 53649 [facility] 2021-04-20 Outpatient Rey, STLMLC STLMLC [id number] Common 11:42:27 Jose 97335 [facility] 2021-04-20 Outpatient Rey, STLMLC STLMLC [id number] Common 11:40:16 Jose 65333 [facility] 2021-04-20 Outpatient Rey, STLMLC STLMLC [id number] Common 11:38:56 Jose 03388 [facility] 2021-04-20 Outpatient Rey, STLMLC STLMLC [id number] Common 11:17:01 Jose 70580 [facility] 2021-04-20 Outpatient Rey, STLMLC STLMLC [id number] Common 11:16:49 Jose 32899 [facility] 2021-04-20 Outpatient Rey, STLMLC STLMLC [id number] Common 11:14:02 Jose 30139 [facility] 2021-01-01 Inpatient [facility] [id number] [facility] 20:20:01 Med 2022-06-06 2022-06-06 Outpatient ANANTH [facility] [id number] [place] 10:00:00 10:00:00 [facility] 2022-02-23 2022-03-14 Inpatient 3 [place] ENCPL CVA [id number] [facility] 15:39:00 13:20:00 hez, 1201 ss [facility] [place] 2022-02-28 2022-03-02 Outpatient E BRYN, SALIMA MED 7500 BL 15:08:00 13:05:00 TATO 2022-02-15 2022-02-15 Outpatient BRIAN [facility] [id number] [place] 09:00:00 09:00:[address] [facility] 2022-02-06 2022-02-06 Telephone Forte, 1.2.840.1 [id number] Methodi 00:00:00 00:00:[address] [facility]-i 3.430.2.7 Hosp josh .3.690303 l .8 2022-02-06 2022-02-06 Telephone Jann, 1.2.840.1 [id number] Methodi 00:00:00 00:00:[address] [facility]-i 3.430.2.7 Hosp josh .3.303711 l .8 2022-01-31 2022-01-31 Office ANANTH [facility] 6410 [id number] [id number] [place] 10:30:00 12:02:52 Visit JOSE GOMEZ 350.1.13.58 Health 9.2.7.2.686 [id number] 2021-12-07 2021-12-29 Inpatient 3 [facility] ENCPL CVA [id number] [facility] 19:35:00 16:20:00 jordan, 0914 [facility] [place] 2021-12-02 2021-12-02 Outpatient ANANTH [facility] [id number] [place] 10:30:00 10:30:00 [facility] 2021-11-21 2021-11-21 Outpatient [facility] PRIV PRIV 243 [id number] [facility] 00:00:00 00:00:00 d_J [id number] Medica l 2021-11-16 2021-11-16 Outpatient [facility]Tod PRIV PRIV 243 [id number] [facility] 00:00:00 00:00:00 d_J [id number] Medica l 2021-11-11 2021-11-11 Outpatient [facility]Tod PRIV PRIV 243 [id number] [facility] 00:00:00 00:00:00 d_J [id number] Medica l 2021-11-01 2021-11-01 Outpatient [facility]Tod PRIV PRIV 243 [id number] [facility] 00:00:00 00:00:00 d_J [id number] Medica l 2021-11-01 2021-11-01 Estelle [facility] [id number] [facility] 00:00:00 00:00:00 RAÚL Schneider: Health - Med ical [address] [place] [address] , Ph. 2021-11-01 2021-11-01 Outpatient Wyatt, PRIV PRIV [id number] [id number] 00:00:00 00:00:00 Estelle [id number] 2021-10-28 2021-10-28 Outpatient [facility]_Tod PRIV PRIV 243 [id number] [facility] 00:00:00 00:00:00 d_J [id number] Medica l 2021-10-27 2021-10-27 Outpatient GC[facility]_Tod PRIV PRIV 243 [id number] [facility] 00:00:00 00:00:00 d_J [id number] Medica l 2021-10-25 2021-10-25 Outpatient [facility]_Tod PRIV PRIV 243 [id number] [facility] 00:00:00 00:00:00 d_J [id number] Medica l 2021-10-25 2021-10-25 Estelle [facility] [id number] [facility] 00:00:00 00:00:00 RAÚL Schneider: Health - Med ical [address] [place] [address] , Ph. 2021-10-25 2021-10-25 Outpatient Wyatt, PRIV PRIV [id number] 00:00:00 00:00:00 Estelle [id number] 2021-10-21 2021-10-21 Outpatient [facility]_Tod PRIV PRIV 243 [id number] [facility] 00:00:00 00:00:00 d_J [id number] Medica l 2021-10-20 2021-10-20 Outpatient GC[facility]Tod PRIV PRIV 243 [id number] [facility] 00:00:00 00:00:00 d_J [id number] Medica l 2021-10-20 2021-10-20 Sergio Up PRIV [facility] [id number] [facility] 00:00:00 00:00:00 Alfredo [facility] - Med ical MD: [address] [place] [address] , Ph. 2021-10-20 2021-10-20 Outpatient REMA Fuentes PRIV [id number] 00:00:00 00:00:00 Sergio Up [id number] 2021-10-18 2021-10-18 Outpatient [facility]_Tod PRIV PRIV [id number] [facility] 03:56:00 03:56:00 d_J [id number] Medica l 2021-10-18 2021-10-[facility] [id number] [facility] 00:00:00 00:00:00 RAÚL Schneider: Health - Med ical [address] [place] [address] , Ph. 2021-10-18 2021-10-18 Outpatient Wyatt REMA PRIV [id number] 00:00:00 00:00:00 Estelle [id number] 2021-10-16 2021-10-16 Outpatient GC_[facility]_Tod PRIV PRIV 243 [id number] [facility] 04:50:00 04:50:00 d_J [id number] Medica l 2021-10-14 2021-10-14 Outpatient GC[facility]_Tod PRIV PRIV 243 [id number] [facility] 07:48:00 07:48:00 d_J [id number] Medica l 2021-10-14 2021-10-14 Estelle [facility] [id number] [facility] 00:00:00 00:00:00 RAÚL Schneider: Health - Med ical [address] [phone] , Ph. 2021-10-14 2021-10-14 Outpatient Wyatt, PRIV PRIV [id number] [id number] 00:00:00 00:00:00 Estelle [id number] 2021-10-12 2021-10-12 Outpatient [facility]Tod PRIV PRIV [id number] [facility] 04:19:00 04:19:00 d_J [id number] Medica l 2021-10-11 2021-10-11 Outpatient [facility]_Tod PRIV PRIV 243 [id number] [facility] 10:06:00 10:06:00 d_J [id number] Medica l 2021-10-11 2021-10-11 Estelle [facility]IV [facility] [id number] [facility] 00:00:00 00:00:00 RAÚL Schneider: Health - Med ical [address] [place] [address] , Ph. 2021-10-11 2021-10-11 Outpatient Wyatt, PRIV PRIV [id number] 00:00:00 00:00:00 Estelle [id number] 2021-10-07 2021-10-07 Outpatient GC_[facility]_Tod PRIV PRIV 243 [id number] [facility] 04:03:00 04:03:00 d_Ricky [id number] Medica l 2021-10-07 2021-10-07 Estelle [facility]IV [facility] [id number] [facility] 00:00:00 00:00:00 RAÚL Schneider: Health - Med ical [address] [place] [address] , Ph. 2021-10-04 2021-10-04 Outpatient GC_[facility]_Tod PRIV PRIV 243 [id number] [facility] 06:03:00 06:03:00 d_J [id number] Medica l 2021-10-04 2021-10-04 Outpatient Wyatt, PRIV PRIV [id number] [id number] 00:00:00 00:00:00 Estelle [id number] 2021-10-04 Estelle REMA [facility] [id number] [facility] 00:00:00 00:00:00 RAÚL Schneider: Health - Med ica [address] [place] [address] , Ph. 2021-09-29 2021-09-29 Outpatient NIMO [facility] [id number] SLE 00:00:00 00:00:00 ARUN 2021-09-27 2021-09-27 Outpatient [facility]_Tod PRIV PRIV 243 [id number] [facility] 01:19:00 01:19:00 d_J [id number] Medica l 2021-08-19 2021-09-24 [facility] [id number] 13:12:[facility] 16:11:[address] [facility] Heather Renee 2021-08-19 2021-09-24 Inpatient MICHAEL SHAH Neuro ICU [id number] SLE 13:12:00 16:11:00 BRETT 2021-08-19 2021-09-24 [facility] [id number] 13:12:00 16:11:00 [facility] Heather Renee 2021-09-19 2021-09-19 [facility] [id number] 23:59:00 23:59:00 Encounter [facility] 2021-09-19 2021-09-19 [facility] [id number] 23:59:00 23:59:00 Encounter [facility] 2021-09-19 2021-09-19 Outpatient [facility] [id number] SLE 00:00:00 23:59:00 2021-09-16 2021-09-16 Outpatient JAXON FLORES [facility] [id number] SLE 00:00:00 00:00:00 [facility] 2021-09-15 2021-09-15 [facility] [id number] SLE 00:00:00 00:00:00 [facility] 2021-09-12 2021-09-12 Anesthesia [facility] [id number] 11:54:00 12:55:00 [facility] 2021-09-12 2021-09-12 Anesthesia [facility] [id number] 11:54:00 12:55:00 Event Chen Dsouza [facility] 2021-09-12 2021-09-12 Surgery Mónicaioana [facility] [id number] 10:00:00 11:00:00 [facility] 2021-09-12 2021-09-12 Surgery Lolamarthaioana [facility] [id number] 10:00:00 11:00:00 [facility] 2021-09-09 2021-09-09 Anesthesia Jacques Cruz [facility] [id number] 13:15:51 13:15:51 Event Bronson Michel [facility] 2021-09-09 2021-09-09 Anesthesia Jacques Cruz [facility] [id number] 13:15:51 13:15:51 Event Bronson Michel [facility] 2021-08-20 2021-08-20 Orders [facility] [id number] 00:00:00 00:00:00 Only [facility] 2021-08-20 2021-08-20 Orders [facility] [id number] 00:00:00 00:00:00 Only [facility] 2021-08-11 2021-08-19 Hospital ER Zoran [facility] [id number] 01:30:00 12:30:00 Encounter [facility] 2021-08-11 2021-08-19 [facility] [id number] 01:30:00 12:30:00 Encounter [facility] 2021-08-11 2021-08-19 Inpatient ER ZORAN, [facility] [id number] [facility] 01:30:00 12:30:00 Med 2021-08-11 2021-08-[address] [facility] [id number] [facility] 00:00:00 [facility] 2021-08-11 2021-08-[address] [facility] [id number] [facility] 00:[facility] 00:00:00 [facility] 2021-08-02 2021-08-02 Office AnanthANNIE 6410 [id number] [id number] [place] 10:00:00 12:05:[address] 350.1.13.58 Health 9.2.7.2.686 [id number] 2021-06-30 2021-06-30 [facility] [id number] mmon 00:00:00 00:00:00 [facility] [place] 2021-05-18 2021-05-18 Telephone AnanthANNIE 6410 1.2.840.114 [id number] [place] 00:00:00 00:00:[address] 350.1.13.58 Health 9.2.7.2.686 [id number] 2021-01-25 2021-01-25 Documentat Eyal [facility] [id number] [id number] 00:00[facility]00 00:00:00 [facility] 2021-01-24 2021-01-24 Documentat Eyal [facility] [id number] 00:00:00 00:00:00 [facility] 2021-01-24 2021-01-24 Abstract Jessa [facility] [id number] 00:00:00 00:00:00 [facility] 2021-01-14 2021-01-14 Documentat Bebe [facility] [id number] 00:00:00 00:00:00 [facility] 2020-11-15 2020-11-15 Orders Paula, [facility] [id number] 00:00:00 00:00:00 Only [facility] 2020-02-25 2020-02-[address] [facility] [id number] [place] 00:00:00 00:00:00 SAJI 977 Method i 2020-02-25 2020-02-[address] [facility] [id number] [place] 00:00:00 00:00:00 SAJI 979 Method i 2020-01-30 2020-01-30 Orders Doctor WYNN 1.2.840.114 [id number] 00:00:00 00:00:00 Only UnassignedTIMOTHY 350.1.13.10 [place] [facility] 4.2.7.2.686 [id number] 2020-01-30 2020-01-30 Orders Doctor WYNN 1.2.840.114 [id number] Univers 00:00:00 00:00:00 Only UnassignedTIMOTHY 350.1.13.10 ity of [place] [facility] 4.2.7.2.686 Red as [id number] [facility] 009 Branch 2020-01-29 2020-01-29 MARGUERITE Campbell 1.2.840.114 [id number] 00:00:00 00:00:00 [place] 350.1.13.10 [place] 4.2.7.2.686 Professio [id number] nal 2 [facility] 2020-01-29 2020-01-29 [place] Yoana [facility] 1.2.840.114 [id number] Univers 00:00:00 00:00:00 Brown [place]iday 350.1.13.10 ity of [place] 4.2.7.2.686 [place] Professio [phone] [facility] nal 2 [facility] 2020-01-22 2020-01-22 Office BRISEIDA Osullivan 1.2.840.114 [id number] [facility] 10:05:54 11:52:05 Visit Daiana Valerio AMBULATOR [id number] [employer] Y [id number] of [id number] [facility] 600 2020-01-22 2020-01-22 Office BRISEIDA Osullivan [id number] 10:05:54 11:52:05 Visit Daiana Valerio AMBULATOR [id number] Y [id number] [facility] 2020-01-02 2020-01-02 Outpatient STLMLC STLMLC [id number] Common 00:00:00 00:00:00 [facility] 2019-12-31 2019-12-31 Outpatient STLMLC STLMLC [id number] Common 00:00:00 00:00:00 [facility] 2019-12-25 2019-12-25 Office BRISEIDA Osullivan 1.2.840.[id number] [place] [address] 09:47:44 11:32:45 Visit Daiana Valerio AMBULATOR 350.1.13.21 College Y 0.2.7.2.686 of [id number] [facility] 600 e 2019-12-25 2019-12-25 Office BRISEIDA Osullivan 1.2.840.114 [id number] 09:47:44 11:32:45 Visit Daiana Teodoro AMBULATOR 350.1.13.21 Y 0.2.7.2.686 [id number] [facility] 2019-11-27 2019-11-27 Office BRISEIDA Osullivan 1.2.840.[id number] [place] [address] 08:35:10 09:57:10 Visit Daiana Valerio AMBULATOR 350.1.13.21 College Y 0.2.7.2.686 of [id number] [facility] 600 e 2019-11-27 2019-11-27 Office ShiJED novakMikey 1.2.840.114 [id number] 08:35:10 09:57:10 Visit Daiana Valerio AMBULATOR 350.1.13.21 Y 0.2.7.2.686 [id number] [facility] 2019-11-24 2019-11-24 Outpatient Liya Nickersont 32 [id number] Common 09:17:00 09:17:00 t [facility] 2019-11-13 2019-11-13 Office ShiJED novak 1.2.840.114 [id number] [facility] 15:52:21 16:41:09 Visit Daiana Teodoro AMBULATOR 350.1.13.21 College Y 0.2.7.2.686 of [id number] [facility] 600 e 2019-11-13 2019-11-13 Office ShiJED novak 1.2.840.114 [id number] 15:52:21 16:41:09 Visit Daiana Valerio AMBULATOR 350.1.13.21 Y 0.2.7.2.686 [id number] [facility] 2019-11-12 2019-11-12 Outpatient Liya Nickersont 32 [id number] Common 09:30:00 09:30:00 [facility] 2019-11-04 2019-11-04 Outpatient EL [facility] [id number] [facility] 00:00:00 00:00:00 2019-11-04 2019-11-04 Outpatient EL [facility] [id number] [facility] 00:00:00 00:00:00 2019-10-07 2019-10-07 Outpatient EL [facility] [id number] [facility] 00:00:00 00:00:00 2019-10-02 2019-10-02 Outpatient Liya [place] 31 [id number] Common 16:22:00 16:22:00 [place] [address] [facility] 2019-10-02 2019-10-02 [facility] [id number] Common 10:15:00 10:15:00 [place] [address] [facility] 2019-10-02 2019-10-02 [facility] 30 [id number] Common 10:00:00 10:00:00 [place] [address] [facility] 2019-09-02 2019-09-02 Outpatient SLEH SLE[facility] [id number] SLEH 00:00:00 00:00:00 [id number] 2019-09-02 2019-09-02 Outpatient EL [facility] [id number] [facility] 00:00:00 00:00:00 2019-07-01 2019-07-01 [facility] 29 [id number] Common 11:45:00 11:45:00 [place] [address] [facility] 2019-05-23 2019-05-23 Orders Doctor WYNN 1.2.840.114 [id number] Univers 00:00:00 00:00:00 Only Unassigned, TIMOTHY 350.1.13.10 ity of [facility] 4.2.7.2.686 Red as [id number] [place] [address] [address] 2019-05-22 2019-05-22 [facility] 1.2.840.114 [id number] Univers 00:00:00 00:00:00 [place] 350.1.13.10 [place]y [place]2.[place] [id number] Ar dical nal 0[address] [facility] 2019-05-12 2019-05-12 Orders Doctor WYNN 1.2.840.114 [id number] Univers 00:00:00 00:00:00 Only Unassigned, TIMOTHY 350.1.13.10 ity of [facility] 4.2.7.2.686 Red as [id number] [facility] 00[address] 2019-04-10 2019-04-10 [facility] [id number] Common 11:54:00 11:54:00 [place] [address] [place] [facility] 2019-03-31 2019-03-31 [facility] [id number] Common 11:20:00 11:20:00 [place] [address] [facility] 2019-03-27 2019-03-27 [facility] 28 [id number] Common 10:30:00 10:30:00 [place] [address] [place] [facility] 2019-03-12 2019-03-12 [facility] 27 [id number] Common 09:45:00 09:45:00 [place] [address] [facility] Results Test Description Test Time Test Comments Results Result Comments Source MISCELLANEOUS LAB ORDER 2021-09-29 09:57:05 Test Item Value Reference Range Interpretation Comme nts SCAN RESULT (test code = 4997973) See scanned report See scanned reportPOC-Glucose [id number] 12:00:16 Test Item Value Reference Range Interpretation Comments POC-Glucose Meter (test 146 mg/dL 70-110 H : TE STED AT [facility] code = 1538) [address] [place] [address], 770 30: Aircraft Worker/Techni daniel ID = [id number] for TEZENO, BANDAR Lab Interpretation (test Abnormal code = 27319-6) [facility] [id number] 12:00:16 Test Item Value Reference Range Interpretation Comments POC-Glucose Meter (test 146 mg/dL 70-110 H : TE STED AT [facility] code = 1538) [address] [place] [address], 770 30: Aircraft Worker/Techni daniel ID = [id number] for TEZENO, BANDAR Lab Interpretation (test Abnormal code = 60222-9) [facility] [id number] 12:00:16 Test Item Value Reference Range Interpretation Comments POC-Glucose Meter (test 146 mg/dL 70-110 H : TE STED AT [facility] code = 1538) [address] [place] [address], 770 30: Aircraft Worker/Techni daniel ID = [id number] for TEZENO, BANDAR Lab Interpretation (test Abnormal code = 33828-9) [facility] [id number] 12:00:16 Test Item Value Reference Range Interpretation Comments POC-GLUCOSE METER 146 mg/dL 70-110 H : TESTED A T [facility] 6720 (BEAKER) (test code = [facility], 1538) 58078: Aircraft Worker/Techni daniel ID = [id number] for BANDAR SUAZO BASIC METABOLIC [id number] 07:05:24 Test Item Value Reference Range Interpretation [...] S NOT APPLICABLE FOR DIALYSIS PATIEN TS. Aircraft Worker ID - BANDAR MPOCT-GLUCOSE [id number] 00:56:00 Test Item Value Reference Range Interpretation Comments POC-GLUCOSE METER 98 mg/dL 70-110 : TESTED A T [facility] 6720 (BEAKER) (test code = [facility], 1538) 48287: Aircraft Worker/Techni daniel ID = [id number] for YOCASTA N (V), MARIAELAR POCT-GLUCOSE [id number] 17:09:29 Test Item Value Reference Range Interpretation Comments POC-GLUCOSE METER 110 mg/dL 70-110 : TESTED A T [facility] 6720 (BEAKER) (test code [facility], = 1538) 18034: Aircraft Worker/Techni daniel ID = [id number] for LAUREN Lester SARS-CoV2/RT-PCR (Asymptomatic ONLY)2021-09-23 15:25:18 Test Item Value Reference Range Interpretation Comments SARS-COV2/RT-PCR (test Positive Not Detected, AA code = 72692-2) Negative, See external report for linked test SARS-COV-2 PERFORMING [facility] (test code = 72246-0) CECELIA (test code = CECELIA) Results are [...] of the Act. Fact Sheet for Healthcare Providers:https://www.Paradigm/sites/default /files/product/document s/Fact_Sheet_HC_Provide ys_Dwxr_UERL-RnO-7.pdf Fact Sheet for Healthcare Patients:https://www.Arkeia Software.DepotPoint/sites/default/ files/product/documents /Fact_Sheet_Patients_Ly rq_TDXF-LmZ-3.pdf Performing Laboratory:[facility] [place] [address] Lab Interpretation Abnormal (test code = 37164-6) [facility]2021-09-23 15:25:18 Test Item Value Reference Range Interpretation Comments SARS-COV2/RT-PCR (test Positive Not Detected, AA code = 80010-4) Negative, See external report for linked test SARS-COV-2 PERFORMING [facility] (test code = 43130-1) CECELIA (test code = CECELIA) Results are [...] of the Act. Fact Sheet for Healthcare Providers:https://www.Paradigm/sites/default /files/product/document s/Fact_Sheet_HC_Provide tv_Oeva_OUQE-RaT-7.pdf Fact Sheet for Healthcare Patients:https://www.M2G/sites/default/ files/product/documents /Fact_Sheet_Patients_Ly ed_FZFB-HlV-7.pdf Performing Laboratory:[facility] [place] [address] Lab Interpretation Abnormal (test code = 92978-1) [facility]2021-09-23 15:25:18 Test Item Value Reference Range Interpretation Comments SARS-COV2/RT-PCR (test Positive Not Detected, AA code = 65989-6) Negative, See external report for linked test SARS-COV-2 PERFORMING [facility] (test code = 83166-7) CECELIA (test code = CECELIA) Results are [...] of the Act. Fact Sheet for Healthcare Providers:https://www.Paradigm/sites/default /files/product/document s/Fact_Sheet_HC_Provide wd_Pgoh_VVIL-UpU-0.pdf Fact Sheet for Healthcare Patients:https://www.Arkeia Software.DepotPoint/sites/default/ files/product/documents /Fact_Sheet_Patients_Ly jg_XIAH-KnS-5.pdf Performing Laboratory:[facility] [place] [address] Lab Interpretation Abnormal (test code = 44993-8) [facility])2021-09-23 15:25:18 Test Item Value Reference Range Interpretation Comments SARS-COV2/RT-PCR (test Positive Not Detected, Negative, AA code = 7367701) See external report for linked test SARS-COV-2 PERFORMING LAB [facility] (test code = 3484473) Results are for the detection of SARS-CoV-2 [...] 564(g) of the Act.Fact Sheet for Healthcare Providers:https://www.Simmery.DepotPoint/sites/default/files/product/documen ts/Qkkn_Rygek_WO_Geemanfzj_Lzgv_XFWI-ZeQ-5.pdfFact Sheet for Healthcare Patients:https://www.Simmery.Minbox om/sites/default/files/product/documents/Lrqn_Qcmhk_Yzcrrixb_Dlyg_NQJC-QhQ-7.pdf Performing Laboratory:[facility] [place], [place] [address]DICY-WXGFITX [id number] 08:15:54 Test Item Value Reference Range Interpretation Comments POC-GLUCOSE METER 89 mg/dL 70-110 : TESTED A T [facility] 6720 (BEAKER) (test code = ANIL Nithya [facility], 1538) 32433: Aircraft Worker/Techni daniel ID = [id number] for LAUREN Lester ANURADHA POCT-GLUCOSE [id number] 06:25:58 Test Item Value Reference Range Interpretation Comments POC-GLUCOSE METER 88 mg/dL 70-110 : TESTED A T [facility] 6720 (BEAKER) (test code = ANIL Brown [facility], 1538) 32565: Aircraft Worker/Techni daniel ID = [id number] for ALLISON ARMAS BASIC METABOLIC [id number] 04:22:37 Test Item Value Reference Range Interpretation [...] S NOT APPLICABLE FOR DIALYSIS PATIEN TS. Aircraft Worker ID - THEE [id number] 04:16:36 Test Item Value Reference Range Interpretation Comments Magnesium (test code = 2.5 mg/dL 1.6-2.6 20133-3) CECELIA (test code = CECELIA) Aircraft Worker ID - THEE G Lab Interpretation (test Normal code = 19492-6) [facility] 04:16:36 Test Item Value Reference Range Interpretation Comments Phosphorus (test code = 2.8 mg/dL 2.3-4.7 7-1) CECELIA (test code = CECELIA) Aircraft Worker ID - THEE G Lab Interpretation (test Normal code = 31042-4) [facility] [id number] 04:16:36 Test Item Value Reference Range Interpretation Comments CRP (test code = 676) 11.91 mg/dL 0.00-0.50 H CECELIA (test code = CECELIA) Aircraft Worker ID - THEE G Lab Interpretation (test Abnormal code = 60657-1) [facility] 04:16:36 Test Item Value Reference Range Interpretation Comments Magnesium (test code = 2.5 mg/dL 1.6-2.6 97073-2) CECELIA (test code = CECELIA) Aircraft Worker ID - THEE G Lab Interpretation (test Normal code = 78091-2) [facility] 04:16:36 Test Item Value Reference Range Interpretation Comments Phosphorus (test code = 2.8 mg/dL 2.3-4.7 7-1) CECELIA (test code = CECELIA) Aircraft Worker ID - THEE G Lab Interpretation (test Normal code = 35557-4) [facility] [id number] 04:16:36 Test Item Value Reference Range Interpretation Comments CRP (test code = 676) 11.91 mg/dL 0.00-0.50 H CECELIA (test code = CECELIA) Aircraft Worker ID - THEE G Lab Interpretation (test Abnormal code = 69106-0) [facility]2022-[facility]-01 04:16:36 Test Item Value Reference Range Interpretation Comments Magnesium (test code = 2.5 mg/dL 1.6-2.6 66785-8) CECELIA (test code = CECELIA) Aircraft Worker ID - THEE G Lab Interpretation (test Normal code = 60039-3) [facility]22-[facility] 04:16:36 Test Item Value Reference Range Interpretation Comments Phosphorus (test code = 2.8 mg/dL 2.3-4.7 2777-1) CECELIA (test code = CECELIA) Aircraft Worker ID - THEE G Lab Interpretation (test Normal code = 17714-8) [facility] [id number] 04:16:36 Test Item Value Reference Range Interpretation Comments CRP (test code = 676) 11.91 mg/dL 0.00-0.50 H CECELIA (test code = CECELIA) Aircraft Worker ID - THEE G Lab Interpretation (test Abnormal code = 74086-6) [facility]2022-[facility]-01 04:16:36 Test Item Value Reference Range Interpretation Comments MAGNESIUM (BEAKER) (test code = 2.5 mg/dL 1.6-2.6 627) Aircraft Worker ID - THEE [id number] 04:16:36 Test Item Value Reference Range Interpretation Comments PHOSPHORUS (BEAKER) (test code = 2.8 mg/dL 2.3-4.7 604) Aircraft Worker ID - THEE GC-REACTIVE [id number] 04:16:36 Test Item Value Reference Range Interpretation Comments C-REACTIVE PROTEIN (BEAKER) (test 11.91 mg/dL 0.00-0.50 H code = 676) Aircraft Worker ID - THEE GCBC (Hemogram only)2021-09-23 03:52:42 Test Item Value Reference Range Interpretation Comments WBC (test code = 6690-2) 10.1 See_Comment [A utomated message] The system Xenapto generated this result transmitted ref erence range: 3.5 - 10 .5 K/L. The refe rence range was not u sed to interpret this result as normal/abnor mal. RBC (test code = 789-8) 2.66 See_Comment L [Au tomated message] The system [employer]apto generated this result transmitted ref erence range: 3.93 - 5 .22 M/L. The refe rence range was not u sed to interpret this result as normal/abnor mal. MCHC (test code = 786-4) 31.5 See_Comment L [A utomated message] The system [employer] generated this result transmitted ref erence range: [...] See_Comment [Aut omated message] 777-3) The system [employer] generated this result transmitted ref erence range: 150 - 45 0 K/CU MM. The referen ce range was not u sed to interpret this result as normal/abnor mal. MPV (test code = 9.4 fL 9.4-12.3 95182-8) nRBC (test code = 413) 0 See_Comment [Aut omated message] The system [employer] generated this result transmitted ref erence range: 0 - 0 /1 00 WBC. The refere nce range was not u sed to interpret this result as normal/abnor mal. Lab Interpretation (test Abnormal code = 65037-7) [facility] (Hemogram only)2021-09-23 03:52:42 Test Item Value Reference Range Interpretation Comments WBC (test code = 6690-2) 10.1 See_Comment [A utomated message] The system [employer] generated this result transmitted ref erence range: 3.5 - 10 .5 K/L. The refe rence range was not u sed to interpret this result as normal/abnor mal. RBC (test code = 789-8) 2.66 See_Comment L [Au tomated message] The system [employer] generated this result transmitted ref erence range: 3.93 - 5 .22 M/L. The refe rence range was not u sed to interpret this result as normal/abnor mal. MCHC (test code = 786-4) 31.5 See_Comment L [A utomated message] The system [employer] generated this result transmitted ref erence range: [...] See_Comment [Aut omated message] 777-3) The system [employer] generated this result transmitted ref erence range: 150 - 45 0 K/CU MM. The referen ce range was not u sed to interpret this result as normal/abnor mal. MPV (test code = 9.4 fL 9.4-12.3 43959-1) nRBC (test code = 413) 0 See_Comment [Aut omated message] The system Xen[employer] generated this result transmitted ref erence range: 0 - 0 /1 00 WBC. The refere nce range was not u sed to interpret this result as normal/abnor mal. Lab Interpretation (test Abnormal code = 32903-6) [facility] (Hemogram only)2021-09-23 03:52:42 Test Item Value Reference Range Interpretation Comments WBC (test code = 6690-2) 10.1 See_Comment [A utomated message] The system Xen[employer]o generated this result transmitted ref erence range: 3.5 - 10 .5 K/L. The refe rence range was not u sed to interpret this result as normal/abnor mal. RBC (test code = 789-8) 2.66 See_Comment L [Au tomated message] The system Xen[employer]o generated this result transmitted ref erence range: 3.93 - 5 .22 M/L. The refe rence range was not u sed to interpret this result as normal/abnor mal. MCHC (test code = 786-4) 31.5 See_Comment L [A utomated message] The system Xen[employer]o generated this result transmitted ref erence range: [...] See_Comment [Aut omated message] 777-3) The system [employer]o generated this result transmitted ref erence range: 150 - 45 0 K/CU MM. The referen ce range was not u sed to interpret this result as normal/abnor mal. MPV (test code = 9.4 fL 9.4-12.3 15850-9) nRBC (test code = 413) 0 See_Comment [Aut omated message] The system Xenapto generated this result transmitted ref erence range: 0 - 0 /1 00 WBC. The refere nce range was not u sed to interpret this result as normal/abnor mal. Lab Interpretation (test Abnormal code = 84617-2) [facility] (HEMOGRAM ONLY)2021-09-23 03:52:42 Test Item Value Reference [...] 0-0 (BEAKER) (test code = 413) POCT-GLUCOSE [id number] 23:51:03 Test Item Value Reference Range Interpretation Comments POC-GLUCOSE METER 158 mg/dL 70-110 H : TESTED A T [facility] 6720 (BEAKER) (test code = ANIL Brown [place], 1538) 6[address]: Aircraft Worker/Techni daniel ID = [id number] for RA STOVALLAiram ALLISON CT, BRAIN, WITHOUT [id number] 17:58:00Unlisted Reason for Exam - Click Yes and Enter Reason Below->No [facility] 1965 Sex: FFINAL [...] characterization. Signed: Ruth Benítez MDReport Verified Date/Time: 09/22/2021 17:58:57 [id number] 15:11:51 Test Item Value Reference Range Interpretation Comments THYROID STIMULATING HORMONE 4.461 uIU/mL 0.350-4.940 (BEAKER) (test code = 772) Aircraft Worker ID - BSVITAMIN [id number] 15:11:51 Test Item Value Reference Range Interpretation Comments VITAMIN B12 (BEAKER) (test code = 647 pg/mL 213-816 774) Aircraft Worker ID - BSPOCT-GLUCOSE [id number] 11:59:22 Test Item Value Reference Range Interpretation Comments POC-GLUCOSE METER 142 mg/dL 70-110 H : TESTED A T [facility] 6720 (BEAKER) (test code [facility], = 1538) 45167: Aircraft Worker/Techni daniel ID = [id number] for VIDA Crockett SuDarinLAUREN ANURADHA POCT-GLUCOSE [id number] 23:31:55 Test Item Value Reference Range Interpretation Comments POC-GLUCOSE METER 130 mg/dL 70-110 H : TESTED A T [facility] 6720 (BEAKER) (test code = [facility] Nithya [facility], 1538) 63130: Aircraft Worker/Techni daniel ID = [id number] for [place], Vickie VALPROIC ACID LEVEL, [id number] 19:13:57 Test Item Value Reference Range Interpretation Comments VALPROIC ACID TOTAL (BEAKER) (test 53 ug/mL 50-100 code = 924) Therapeutic range for some clinical conditions may be >100 ug/mLOperator ID - BSBLOOD [id number] 16:01:08 Test Item Value Reference Range Interpretation Comments CULTURE (BEAKER) (test No growth in 5 days code = 1095) BLOOD [id number] 16:01:07 Test Item Value Reference Range Interpretation Comments CULTURE (BEAKER) (test No growth in 5 days code = 1095) POCT-GLUCOSE [id number] 11:43:19 Test Item Value Reference Range Interpretation Comments POC-GLUCOSE METER 105 mg/dL 70-110 : TESTED A T [facility] 6720 (BEAKER) (test code = [facility] [place], 1538) 89784: Aircraft Worker/Techni daniel ID = [id number] for LEENA ROTHMAN POCT-GLUCOSE [id number] 06:58:18 Test Item Value Reference Range Interpretation Comments POC-GLUCOSE METER 138 mg/dL 70-110 H : TESTED A T [facility] 6720 (BEAKER) (test code = [facility], 1538) 18543: Aircraft Worker/Techni daniel ID = [id number] for Amparo Warren BASIC METABOLIC [id number] 05:34:52 Test Item Value Reference Range Interpretation [...] S NOT APPLICABLE FOR DIALYSIS PATIEN TS. Aircraft Worker ID - PIAYA LC-REACTIVE [id number] 05:34:35 Test Item Value Reference Range Interpretation Comments C-REACTIVE PROTEIN (BEAKER) (test 17.60 mg/dL 0.00-0.50 H code = 676) Aircraft Worker ID - DANA [id number] 05:34:34 Test Item Value Reference Range Interpretation Comments MAGNESIUM (BEAKER) (test code = 2.4 mg/dL 1.6-2.6 627) Aircraft Worker ID - DANA [id number] 05:34:34 Test Item Value Reference Range Interpretation Comments PHOSPHORUS (BEAKER) (test code = 3.2 mg/dL 2.3-4.7 604) Aircraft Worker ID - DANA LPOCT-GLUCOSE [id number] 23:43:01 Test Item Value Reference Range Interpretation Comments POC-GLUCOSE METER 113 mg/dL 70-110 H : TESTED A T [facility] 6720 ([facility]) (test code = [facility], 1538) 57794: Aircraft Worker/Techni daniel ID = [id number] for Amparo Warren POCT-GLUCOSE [id number] 18:10:57 Test Item Value Reference Range Interpretation Comments POC-GLUCOSE METER 109 mg/dL 70-110 : TESTED A T [facility] 6720 (BEAKER) (test code = [facility], 153) 05028: Aircraft Worker/Techni daniel ID = [id number] for WILLIAM ABHAY, BANDAR BLOOD [id number] 17:00:52 Test Item Value Reference Range Interpretation Comments CULTURE (BEAKER) (test No growth in 5 days code = 1095) POCT-GLUCOSE [id number] 12:23:54 Test Item Value Reference Range Interpretation Comments POC-GLUCOSE METER 102 mg/dL 70-110 : TESTED A T [facility] 6720 (BEAKER) (test code = [facility], 153) 18248: Aircraft Worker/Techni daniel ID = [id number] for WILLIAM ABHAY, BANDAR POCT-GLUCOSE [id number] 06:03:14 Test Item Value Reference Range Interpretation Comments POC-GLUCOSE METER 117 mg/dL 70-110 H : TESTED A T [facility] 6720 (BEAKER) (test code = [facility], 1538) 56187: Aircraft Worker/Techni daniel ID = [id number] for ALLISON HORTA POCT-GLUCOSE [id number] 23:34:08 Test Item Value Reference Range Interpretation Comments POC-GLUCOSE METER 130 mg/dL 70-110 H : TESTED A T [facility] 6720 (BEAKER) (test code = [facility], 1538) 18302: Aircraft Worker/Techni daniel ID = [id number] for ALLISON HORTA POCT-GLUCOSE [id number] 17:25:33 Test Item Value Reference Range Interpretation Comments POC-GLUCOSE METER 118 mg/dL 70-110 H : TESTED A T [facility] 6720 (BEAKER) (test code = [facility], 1538) 39317: Aircraft Worker/Techni daniel ID = [id number] for ST VINCE NADA POCT-GLUCOSE [id number] 11:37:16 Test Item Value Reference Range Interpretation Comments POC-GLUCOSE METER 110 mg/dL 70-110 : TESTED A T [facility] 6720 (BEAKER) (test code = [facility], 1538) 24911: Aircraft Worker/Techni daniel ID = [id number] for ST VINCE, NADA POCT-GLUCOSE [id number] 06:41:12 Test Item Value Reference Range Interpretation Comments POC-GLUCOSE METER 110 mg/dL 70-110 : TESTED A T [facility] 6720 (BEAKER) (test code = [facility], 1538) 47469: Aircraft Worker/Techni daniel ID = [id number] for ANGELIKA STALEY BASIC METABOLIC [id number] 05:33:28 Test Item Value Reference Range Interpretation [...] S NOT APPLICABLE FOR DIALYSIS PATIEN TS. Aircraft Worker ID - THEE [id number] 05:25:46 Test Item Value Reference Range Interpretation Comments MAGNESIUM (BEAKER) (test code = 2.3 mg/dL 1.6-2.6 627) Aircraft Worker ID - THEE GC-REACTIVE [id number] 05:25:46 Test Item Value Reference Range Interpretation Comments C-REACTIVE PROTEIN (BEAKER) (test 17.48 mg/dL 0.00-0.50 H code = 676) Aircraft Worker ID - THEE GPOCT-GLUCOSE [id number] 00:56:08 Test Item Value Reference Range Interpretation Comments POC-GLUCOSE METER 107 mg/dL 70-110 : TESTED A T [facility] 6720 (BEAKER) (test code = [facility], 1538) 84144: Aircraft Worker/Techni daniel ID = [id number] for ANGELIKA STALEY POCT-GLUCOSE [id number] 18:06:33 Test Item Value Reference Range Interpretation Comments POC-GLUCOSE METER 110 mg/dL 70-110 : TESTED A T [facility] 6720 (BEAKER) (test code = [facility], 1538) 63833: Aircraft Worker/Techni daniel ID = [id number] for DONNIE LANGLEY POCT-GLUCOSE [id number] 12:14:38 Test Item Value Reference Range Interpretation Comments POC-GLUCOSE METER 116 mg/dL 70-110 H : TESTED A T [facility] 6720 (BEAKER) (test code = [facility], 1538) [address]: Aircraft Worker/Techni daniel ID = [id number] for DONNIE LANGLEY BASIC METABOLIC [id number] 05:21:10 Test Item Value Reference Range Interpretation [...] S NOT APPLICABLE FOR DIALYSIS PATIEN TS. Aircraft Worker ID - THEE [id number] 05:13:01 Test Item Value Reference Range Interpretation Comments PHOSPHORUS (BEAKER) (test code = 2.0 mg/dL 2.3-4.7 L 604) Aircraft Worker ID - THEE [id number] 05:13:00 Test Item Value Reference Range Interpretation Comments MAGNESIUM (BEAKER) (test code = 2.1 mg/dL 1.6-2.6 627) Aircraft Worker ID - THEE GCBC (HEMOGRAM ONLY)2021-09-18 05:08:01 [...] 0-0 (BEAKER) (test code = 413) POCT-GLUCOSE [id number] 17:42:12 Test Item Value Reference Range Interpretation Comments POC-GLUCOSE METER 114 mg/dL 70-110 H : TESTED A T [facility] 6720 (BEAKER) (test code = [place], 1538) [address]: Aircraft Worker/Techni daniel ID = [id number] for DONNIE LANGLEY BASIC METABOLIC [id number] 14:00:34 Test Item Value Reference Range Interpretation [...] S NOT APPLICABLE FOR DIALYSIS PATIEN TS. Aircraft Worker ID - BANDAR [id number] 13:54:23 Test Item Value Reference Range Interpretation Comments MAGNESIUM (BEAKER) (test code = 2.2 mg/dL 1.6-2.6 627) Aircraft Worker ID - BANDAR MCBC (HEMOGRAM ONLY)2021-09-17 13:41:41 [...] 0-0 (BEAKER) (test code = 413) POCT-GLUCOSE [id number] 12:17:44 Test Item Value Reference Range Interpretation Comments POC-GLUCOSE METER 106 mg/dL 70-110 : TESTED A T [facility] 6720 (BEAKER) (test code = [facility], 153) 58329: Aircraft Worker/Techni daniel ID = [id number] for GUERA WILLS DONNIE POCT-GLUCOSE [id number] 22:49:23 Test Item Value Reference Range Interpretation Comments POC-GLUCOSE METER 132 mg/dL 70-110 H : TESTED A T [facility] 6720 (BEAKER) (test code = [facility], 153) 23013: Aircraft Worker/Techni daniel ID = [id number] for ANGELIKA STALEY POCT-GLUCOSE [id number] 17:34:14 Test Item Value Reference Range Interpretation Comments POC-GLUCOSE METER 122 mg/dL 70-110 H : TESTED A T [facility] 6720 (BEAKER) (test code = [facility], 153) 703[address]: Aircraft Worker/Techni daniel ID = [id number] for CATHY MONTOYA SARS-COV2/RT-PCR ([facility])2021-09-16 13:48:06 Test Item Value Reference Range Interpretation Comments SARS-COV2/RT-PCR (test Positive Not Detected, Negative, AA code = 5829751) See external report for linked test SARS-COV-2 PERFORMING LAB [facility] ANDREEA (test code = 0894247) Results are for the detection of SARS-CoV-2 [...] 564(g) of the Act.Fact Sheet for Healthcare Providers:https://www.Simmery.com/sites/default/files/product/documen ts/Ukfh_Deyfn_VZ_Wahauzvyg_Kjpc_EERC-WgD-5.pdfFact Sheet for Healthcare Patients:https://www.Simmery.Minbox om/sites/default/files/product/documents/Vgcm_Chtsj_Ygxpsmqj_Kkcx_DXVD-VuL-5.pdf Performing Laboratory:[address], [place] [address]QJPG-VZMGTFN [id number] 11:26:15 Test Item Value Reference Range Interpretation Comments POC-GLUCOSE METER 108 mg/dL 70-110 : TESTED A T [facility] 6720 (BEAKER) (test code = [facility], 1538) 39044: Aircraft Worker/Techni daniel ID = [id number] for CATHY MONTOYA POCT-GLUCOSE [id number] 06:27:24 Test Item Value Reference Range Interpretation Comments POC-GLUCOSE METER 97 mg/dL 70-110 : TESTED A T [facility] 6720 (BEAKER) (test code = [facility], 1538) 53625: Aircraft Worker/Techni daniel ID = [id number] for Fidelia Sullivan BASIC METABOLIC [id number] 03:59:42 Test Item Value Reference Range Interpretation [...] S NOT APPLICABLE FOR DIALYSIS PATIEN TS. Aircraft Worker ID - [id number] 03:56:56 Test Item Value Reference Range Interpretation Comments MAGNESIUM (BEAKER) (test code = 2.2 mg/dL 1.6-2.6 627) Aircraft Worker ID - [id number] 03:56:56 Test Item Value Reference Range Interpretation Comments PHOSPHORUS (BEAKER) (test code = 3.9 mg/dL 2.3-4.7 604) Aircraft Worker ID - ADMINVANCOMYCIN LEVEL, [id number] 03:52:49 Test Item Value Reference Range Interpretation [...] 0-0 (BEAKER) (test code = 413) POCT-GLUCOSE [id number] 23:18:54 Test Item Value Reference Range Interpretation Comments POC-GLUCOSE METER 104 mg/dL 70-110 : Notified RN/MD: (CARLY) (test code = TESTED AT [facility] 2187 0729) [facility], [address]: Aircraft Worker/Techni daniel ID = [id number] for BAIRON CHRISTENSEN POCT-GLUCOSE [id number] 17:14:40 Test Item Value Reference Range Interpretation Comments POC-GLUCOSE METER 77 mg/dL 70-110 : TESTED A T [facility] 6720 (BEAKER) (test code = [place], 1538) [address]: Aircraft Worker/Techni daniel ID = [id number] for Kristian Hwang POCT-GLUCOSE [id number] 11:36:13 Test Item Value Reference Range Interpretation Comments POC-GLUCOSE METER 99 mg/dL 70-110 : TESTED A T [facility] 6720 (BEAKER) (test code = [place], 1538) 46[address]: Aircraft Worker/Techni daniel ID = [id number] for Kristian Hwang [id number] 09:38:21 Test Item Value Reference Range Interpretation Comments PROCALCITONIN (BEAKER) (test code 1.28 ng/mL <0.05 H = 3036) SEPSIS RISK (ng/mL)Low: 0.05-0.50Intermediate: 0.51-2.00High: >=2.01LACTIC ACID, [id number] 09:17:37 Test Item Value Reference Range Interpretation Comments LACTATE BLOOD VENOUS (2) (BEAKER) 1.14 mmol/L 0.50-2.20 (test code = 2872) Aircraft Worker ID - PIAYA LCBC W/PLT COUNT & AUTO [id number] 09:09:24 Test Item Value Reference Range Interpretation [...] PERCENT (BEAKER) (test code = 2801) POCT-GLUCOSE [id number] 06:12:37 Test Item Value Reference Range Interpretation Comments POC-GLUCOSE METER 84 mg/dL 70-110 : Notified RN/MD: TESTED (BEAKER) (test code = AT [place] [address]) [facility], [facility] 30: Aircraft Worker/Techni daniel ID = [id number] for LATH BRIDGE, MABEL POCT-GLUCOSE [id number] 23:36:01 Test Item Value Reference Range Interpretation Comments POC-GLUCOSE METER 97 mg/dL 70-110 : Notified RN/MD: TESTED (BEAKER) (test code = AT [place] [address]) [facility], [facility] 30: Aircraft Worker/Techni daniel ID = [id number] for LATH BRIDGE, MABEL POCT-GLUCOSE [id number] 18:09:46 Test Item Value Reference Range Interpretation Comments POC-GLUCOSE METER 94 mg/dL 70-110 : TESTED A T [facility] 6720 (BEAKER) (test code = [place], 1538) [address]: Aircraft Worker/Techni daniel ID = [id number] for Crystal Varghese CBC (HEMOGRAM ONLY)2021-09-14 17:15:31 [...] = 413) RAD, CHEST, 1 VIEW, NON [id number] 17:12:00Reason for exam:->cough, feverShould this be performed at the bedside?->No [facility] DOB: 1965 Sex: FFINAL REPORT TECHNIQUE: Frontal view [...] prominent on the left. Signed: Jaime Garcia [facility] Verified Date/Time: 09/14/2021 17:12:21 [facility]OL[facility] [id number] 14:20:30 Test Item Value Reference Range Interpretation [...] S NOT APPLICABLE FOR DIALYSIS PATIEN TS. Aircraft Worker ID - [id number] 14:12:02 Test Item Value Reference Range Interpretation Comments MAGNESIUM (BEAKER) 1.9 mg/dL 1.6-2.6 Specimen slightly (test code = 627) hemolyzed Aircraft Worker ID - [id number] 14:12:02 Test Item Value Reference Range Interpretation Comments PHOSPHORUS (BEAKER) 2.2 mg/dL 2.3-4.7 L Specimen slightly (test code = 604) hemolyzed Aircraft Worker ID - BSCBC W/PLT COUNT & AUTO [id number] 14:05:43 Test Item Value Reference Range Interpretation [...] PERCENT (BEAKER) (test code = 2801) POCT-GLUCOSE [id number] 12:21:16 Test Item Value Reference Range Interpretation Comments POC-GLUCOSE METER 82 mg/dL 70-110 : TESTED A T [facility] 6720 (BEAKER) (test code = [facility], [facility]8) [address]: Aircraft Worker/Techni daniel ID = [id number] for Crystal Varghese POCT-GLUCOSE [id number] 07:31:12 Test Item Value Reference Range Interpretation Comments POC-GLUCOSE METER 94 mg/dL 70-110 : TESTED A T [facility] 6720 (BEAKER) (test code = [facility], 1538) 12759: Aircraft Worker/Techni daniel ID = [id number] for Sam rson, Najae POCT-GLUCOSE [id number] 06:33:11 Test Item Value Reference Range Interpretation Comments POC-GLUCOSE METER 66 mg/dL 70-110 L : TESTED A T [facility] 6720 (BEAKER) (test code = [facility], 1538) 9[address]: Aircraft Worker/Techni daniel ID = [id number] for Sam rson, Najae POCT-GLUCOSE [id number] 01:18:11 Test Item Value Reference Range Interpretation Comments POC-GLUCOSE METER 94 mg/dL 70-110 : TESTED A T [facility] 6720 (BEAKER) (test code = [facility], 1538) 537[address]: Aircraft Worker/Techni daniel ID = [id number] for Rita Baca POCT-GLUCOSE [id number] 00:41:03 Test Item Value Reference Range Interpretation Comments POC-GLUCOSE METER 73 mg/dL 70-110 : TESTED A T [facility] 6720 (BEAKER) (test code = [facility], [facility]8) [address]: Aircraft Worker/Techni daniel ID = [id number] for Makenna Bacae POCT-GLUCOSE [id number] 19:01:25 Test Item Value Reference Range Interpretation Comments POC-GLUCOSE METER 85 mg/dL 70-110 : TESTED A T [facility] 6720 (BEAKER) (test code = [facility], [facility]8) [address]: Aircraft Worker/Techni daniel ID = [id number] for Aníbal Flores POCT-GLUCOSE [id number] 12:53:55 Test Item Value Reference Range Interpretation Comments POC-GLUCOSE METER 76 mg/dL 70-110 : TESTED A T [facility] 6720 (BEAKER) (test code = [facility], [facility]8) 6[address]: Aircraft Worker/Techni daniel ID = [id number] for Crystal Varghese POCT-GLUCOSE [id number] 06:10:51 Test Item Value Reference Range Interpretation Comments POC-GLUCOSE METER 74 mg/dL 70-110 : TESTED A T [facility] 6720 (BEAKER) (test code = [facility], [facility]8) 12871: Aircraft Worker/Techni daniel ID = [id number] for MIGUELITO CAMPUZANO POCT-GLUCOSE [id number] 23:49:08 Test Item Value Reference Range Interpretation Comments POC-GLUCOSE METER 70 mg/dL 70-110 : TESTED A T [facility] 6720 (BEAKER) (test code = [facility], 1538) 8[address]: Aircraft Worker/Techni daniel ID = [id number] for MIGUELITO CAMPUZANO POCT-GLUCOSE [id number] 18:55:34 Test Item Value Reference Range Interpretation Comments POC-GLUCOSE METER 72 mg/dL 70-110 : TESTED A T [facility] 6720 (BEAKER) (test code = [facility], 153) 24394: Aircraft Worker/Techni daniel ID = [id number] for ROSSANA SALINAS HEPATITIS B SURFACE [id number] 15:59:47 Test Item Value Reference Range Interpretation Comments HEPATITIS B SURFACE ANTIGEN (2) Nonreactive Nonreactive (BEAKER) (test code = 2585) Specimen is considered negative for HBsAg.POCT-GLUCOSE [id number] 13:47:27 Test Item Value Reference Range Interpretation Comments POC-GLUCOSE METER 127 mg/dL 70-110 H : TESTED A T [facility] 6720 (BEAKER) (test code = [facility], [facility]8) 88476: Aircraft Worker/Techni daniel ID = [id number] for FELICIANO LEONARD POCT-GLUCOSE [id number] 13:11:52 Test Item Value Reference Range Interpretation Comments POC-GLUCOSE METER 66 mg/dL 70-110 L : TESTED A T [facility] 6720 (BEAKER) (test code = [facility], [facility]) [address]: Aircraft Worker/Techni daniel ID = [id number] for Janes Acosta POCT-GLUCOSE [id number] 06:41:15 Test Item Value Reference Range Interpretation Comments POC-GLUCOSE METER 78 mg/dL 70-110 : TESTED A T [facility] 6720 (BEAKER) (test code = [facility], [facility]8) 22483: Aircraft Worker/Techni daniel ID = [id number] for Leidy Wolf BASIC METABOLIC [id number] 06:03:05 Test Item Value Reference Range Interpretation [...] S NOT APPLICABLE FOR DIALYSIS PATIEN TS. Aircraft Worker ID - DBCBC W/PLT COUNT & AUTO [id number] 05:27:35 Test Item Value Reference Range Interpretation [...] H PERCENT (BEAKER) (test code = 2801) [id number] 05:03:14 Test Item Value Reference Range Interpretation Comments PARTIAL THROMBOPLASTIN TIME 70.9 seconds 22.5-36.0 H (BEAKER) (test code = 760) POCT-GLUCOSE [id number] 23:57:21 Test Item Value Reference Range Interpretation Comments POC-GLUCOSE METER 77 mg/dL 70-110 : TESTED A T [facility] 6720 (BEAKER) (test code = [place], 1538) [address]: Aircraft Worker/Techni daniel ID = [id number] for Leidy Wolf [id number] 18:38:34 Test Item Value Reference Range Interpretation [...] 0-0 (BEAKER) (test code = 413) POCT-GLUCOSE [id number] 18:08:00 Test Item Value Reference Range Interpretation Comments POC-GLUCOSE METER 74 mg/dL 70-110 : TESTED A T [facility] 6720 (AKER) (test code = [facility], [facility]8) 23493: Aircraft Worker/Techni daniel ID = [id number] for [place], [employer] POCT-GLUCOSE [id number] 13:12:29 Test Item Value Reference Range Interpretation Comments POC-GLUCOSE METER 69 mg/dL 70-110 L : TESTED A T [facility] 6720 (AKER) (test code = [facility], [facility]8) 87655: Aircraft Worker/Techni daniel ID = [id number] for [place], [employer] [id number] 12:30:50 Test Item Value Reference Range Interpretation Comments PARTIAL THROMBOPLASTIN TIME 77.2 seconds 22.5-36.0 H (BEAKER) (test code = 760) POCT-GLUCOSE [id number] 10:56:50 Test Item Value Reference Range Interpretation Comments POC-GLUCOSE METER 86 mg/dL 70-110 : TESTED A T [facility] 6720 (BEAKER) (test code = [facility], 1538) 59562: Aircraft Worker/Techni daniel ID = [id number] for Good win, Bernardo POCT-GLUCOSE [id number] 06:43:38 Test Item Value Reference Range Interpretation Comments POC-GLUCOSE METER 74 mg/dL 70-110 : TESTED A T [facility] 6720 (BEAKER) (test code = [facility], 1538) 15849: Aircraft Worker/Techni daniel ID = [id number] for WeLeidy gan [id number] 05:37:41 Test Item Value Reference Range Interpretation Comments PARTIAL THROMBOPLASTIN TIME 55.9 seconds 22.5-36.0 H (BEAKER) (test code = 760) [id number] 03:37:37 Test Item Value Reference Range Interpretation Comments PARTIAL THROMBOPLASTIN TIME 137.2 seconds 22.5-36.0 H (BEAKER) (test code = 760) POCT-GLUCOSE [id number] 01:19:33 Test Item Value Reference Range Interpretation Comments POC-GLUCOSE METER 78 mg/dL 70-110 : TESTED A T [facility] 6720 (BEAKER) (test code = [facility], 1538) 8[address]: Aircraft Worker/Techni daniel ID = [id number] for Leidy Wolf [id number] 18:12:08 Test Item Value Reference Range Interpretation Comments PARTIAL THROMBOPLASTIN TIME 108.3 seconds 22.5-36.0 H (BEAKER) (test code = 760) POCT-GLUCOSE [id number] 17:37:49 Test Item Value Reference Range Interpretation Comments POC-GLUCOSE METER 71 mg/dL 70-110 : TESTED A T [facility] 6720 (BEAKER) (test code = [facility], 1538) 15935: Aircraft Worker/Techni daniel ID = [id number] for BRENDON NEERAJ, CATHY POCT-GLUCOSE [id number] 11:56:09 Test Item Value Reference Range Interpretation Comments POC-GLUCOSE METER 91 mg/dL 70-110 : TESTED A T [facility] 6720 (BEAKER) (test code = [facility], 1538) 95344: Aircraft Worker/Techni daniel ID = [id number] for BRENDON NEERAJ, CATHY [id number] 10:59:29 Test Item Value Reference Range Interpretation Comments PARTIAL THROMBOPLASTIN TIME 49.1 seconds 22.5-36.0 H (BEAKER) (test code = 760) [id number] 09:34:25 Test Item Value Reference Range Interpretation Comments PARTIAL THROMBOPLASTIN TIME 119.2 seconds 22.5-36.0 H (BEAKER) (test code = 760) POCT-GLUCOSE [id number] 08:13:50 Test Item Value Reference Range Interpretation Comments POC-GLUCOSE METER 72 mg/dL 70-110 : TESTED A T [facility] 6720 (BEAKER) (test code = [facility] Nithya [facility], 1538) 84655: Aircraft Worker/Techni daniel ID = [id number] for CATHY HONEYCUTT POCT-GLUCOSE [id number] 07:13:36 Test Item Value Reference Range Interpretation Comments POC-GLUCOSE METER 66 mg/dL 70-110 L : TESTED A T [facility] 6720 (CARLY) (test code = [facility] Nithya [facility], 1538) [address]: Aircraft Worker/Techni daniel ID = [id number] for Leidy Wolf [id number] 03:21:24 Test Item Value Reference Range Interpretation Comments PARTIAL THROMBOPLASTIN TIME 70.8 seconds 22.5-36.0 H (YONNYAKER) (test code = 760) POCT-GLUCOSE [id number] 00:46:57 Test Item Value Reference Range Interpretation Comments POC-GLUCOSE METER 79 mg/dL 70-110 : TESTED A T [facility] 6720 (CARLY) (test code = [facility], 1538) 64924: Aircraft Worker/Techni daniel ID = [id number] for Leidy Wolf [id number] 17:47:53 Test Item Value Reference Range Interpretation Comments PARTIAL THROMBOPLASTIN TIME 26.9 seconds 22.5-36.0 (YONNYAKER) (test code = 760) POCT-GLUCOSE [id number] 17:29:51 Test Item Value Reference Range Interpretation Comments POC-GLUCOSE METER 86 mg/dL 70-110 : TESTED A T [facility] 6720 (CARLY) (test code = [facility], 1538) 12190: Aircraft Worker/Techni daniel ID = [id number] for CATHY HONEYCUTT SARS-COV2/RT-PCR ([facility])2021-09-09 16:21:38 Test Item Value Reference Range Interpretation Comments SARS-COV2/RT-PCR Negative Negative The SARS-Co V-2 target (test code = nucleic acids a re not 4201610) detected in thi s specimen. Negative result [...] revoked sooner. Fact Sheet for Healthcare Providers: https://www.Touchstorm m/Documents/Xpert%20Xpress%20SARS%20CoV-2/Fact%20Sheets/302-3802%28KSRM-BWF-4%20 HEALTHCARE%20PROVIDERS%20FACT%20SHEET.pdf Fact Sheet for Healthcare Patients: https://www.[employer]/Documents/Xpert%20Xp ress%20SARS%20CoV-2/Fact%20Sheets/302-3801%77LOSA-RPX-8%20PATIENT%20FACT%20SHEET .pdfPOCT-GLUCOSE [id number] 12:24:09 Test Item Value Reference Range Interpretation Comments POC-GLUCOSE METER 76 mg/dL 70-110 : [facility] T [facility] 67[facility] (GoMoto) (test code = [facility] [employer] [facility], 1538) 12142: Aircraft Worker/Techni daniel ID = [id number] for CATHY HONEYCUTT POCT-GLUCOSE [id number] 10:14:48 Test Item Value Reference Range Interpretation Comments POC-GLUCOSE METER 71 mg/dL 70-110 : TESTED A T [facility] 6720 (GoMoto) (test code = [facility] [employer] [facility], 1538) [address]: Aircraft Worker/Techni daniel ID = [id number] for Scooby Bradley MISCELLANEOUS LAB [id number] 09:27:23 Test Item Value Reference Range Interpretation Comments SCAN RESULT (test code = See scanned report [id number]) See scanned [id number] 08:22:05 Test Item Value Reference Range Interpretation Comments PARTIAL THROMBOPLASTIN TIME 92.7 seconds 22.5-36.0 H (BEAKER) (test code = 760) BASIC METABOLIC [id number] 07:14:28 Test Item Value Reference Range Interpretation [...] S NOT APPLICABLE FOR DIALYSIS PATIEN TS. Aircraft Worker ID - THEE [id number] 07:07:43 Test Item Value Reference Range Interpretation Comments PHOSPHORUS (BEAKER) (test code = 4.0 mg/dL 2.3-4.7 604) Aircraft Worker ID - THEE [id number] 07:07:42 Test Item Value Reference Range Interpretation Comments MAGNESIUM (BEAKER) (test code = 1.9 mg/dL 1.6-2.6 627) Aircraft Worker ID - THEE GPOCT-GLUCOSE [id number] 06:22:47 Test Item Value Reference Range Interpretation Comments POC-GLUCOSE METER 83 mg/dL 70-110 : TESTED A T [facility] 6720 (BEAKER) (test code = [place], 1538) [address]: Aircraft Worker/Techni daniel ID = [id number] for MIGUELITO CAMPUZANO PROTHROMBIN [id number] 06:05:39 Test Item Value Reference Range Interpretation Comments PROTIME (BEAKER) 15.4 seconds 11.9-14.2 H (test code = 759) INR (BEAKER) (test 1.24 See_Comment [Automat ed message] code = 370) The system [employer] generated this result transmitted ref erence range: <=5.90. The reference range was not used to int erpret this result as normal/abnormal . RECOMMENDED COUMADIN/WARFARIN INR THERAPY RANGESSTANDARD DOSE: 2.0 - 3.0 Includes: PROPHYLAXIS for venous thrombosis, systemic embolization; TREATMENT for venous thrombosis and/or pulmonary embolus.HIGH RISK: Target INR is 2.5-3.5 for patients with mechanical heart valves.CBC W/PLT COUNT & AUTO [id number] 05:55:10 Test Item Value Reference Range Interpretation [...] 0-1 PERCENT (BEAKER) (test code = 2801) [id number] 01:10:08 Test Item Value Reference Range Interpretation Comments PARTIAL THROMBOPLASTIN TIME 51.7 seconds 22.5-36.0 H (BEAKER) (test code = 760) POCT-GLUCOSE [id number] 23:49:41 Test Item Value Reference Range Interpretation Comments POC-GLUCOSE METER 74 mg/dL 70-110 : TESTED A T [facility] 6720 (BEAKER) (test code = ANIL Brown [facility], 1538) 18972: Aircraft Worker/Techni daniel ID = [id number] for MIGUELITO CAMPUZANO CBC (HEMOGRAM ONLY)2021-09-08 18:13:52 [...] 0-0 (BEAKER) (test code = 413) POCT-GLUCOSE [id number] 17:34:42 Test Item Value Reference Range Interpretation Comments POC-GLUCOSE METER 78 mg/dL 70-110 : TESTED A T [facility] 6720 (BEAKER) (test code = [facility], 1538) 29710: Aircraft Worker/Techni daniel ID = [id number] for [place], [employer] [id number] 16:13:30 Test Item Value Reference Range Interpretation Comments PARTIAL THROMBOPLASTIN TIME 50.8 seconds 22.5-36.0 H (BEAKER) (test code = 760) [id number] 14:57:35 Test Item Value Reference Range Interpretation Comments PARTIAL THROMBOPLASTIN TIME > seconds 22.5-36.0 HH (BEAKER) (test code = 760) POCT-GLUCOSE [id number] 12:28:52 Test Item Value Reference Range Interpretation Comments POC-GLUCOSE METER 88 mg/dL 70-110 : TESTED A T [facility] 6720 (BEAKER) (test code = [facility], 1538) 15031: Aircraft Worker/Techni daniel ID = [id number] for [place], [employer] [id number] 07:11:35 Test Item Value Reference Range Interpretation Comments PARTIAL THROMBOPLASTIN TIME 55.9 seconds 22.5-36.0 H (BEAKER) (test code = 760) [id number] 22:36:09 Test Item Value Reference Range Interpretation Comments PARTIAL THROMBOPLASTIN TIME 106.1 seconds 22.5-36.0 H (BEAKER) (test code = 760) [id number] 20:46:48 Test Item Value Reference Range Interpretation Comments PARTIAL THROMBOPLASTIN TIME > seconds 22.5-36.0 HH (BEAKER) (test code = 760) [id number] 11:12:06 Test Item Value Reference Range Interpretation Comments PARTIAL THROMBOPLASTIN TIME 89.5 seconds 22.5-36.0 H (BEAKER) (test code = 760) [id number] 09:44:23 Test Item Value Reference Range Interpretation Comments PARTIAL THROMBOPLASTIN TIME 154.4 seconds 22.5-36.0 HH (BEAKER) (test code = 760) [id number] 00:28:57 Test Item Value Reference Range Interpretation Comments PARTIAL THROMBOPLASTIN TIME 63.4 seconds 22.5-36.0 H (BEAKER) (test code = 760) [id number] 17:46:24 Test Item Value Reference Range Interpretation Comments PARTIAL THROMBOPLASTIN TIME 46.8 seconds 22.5-36.0 H (BEAKER) (test code = 760) [id number] 09:28:45 Test Item Value Reference Range Interpretation Comments PARTIAL THROMBOPLASTIN TIME 31.6 seconds 22.5-36.0 (BEAKER) (test code = 760) [id number] 07:27:38 Test Item Value Reference Range Interpretation Comments PARTIAL THROMBOPLASTIN TIME 186.4 seconds 22.5-36.0 HH (BEAKER) (test code = 760) [id number] 04:56:25 Test Item Value Reference Range Interpretation Comments PARTIAL THROMBOPLASTIN TIME 138.6 seconds 22.5-36.0 H (BEAKER) (test code = 760) [id number] 21:52:53 Test Item Value Reference Range Interpretation [...] 0-0 (BEAKER) (test code = 413) POCT-GLUCOSE [id number] 11:22:59 Test Item Value Reference Range Interpretation Comments POC-GLUCOSE METER 60 mg/dL 70-110 L : TESTED A T [facility] 6720 (BEAKER) (test code = [place], 1538) [id number]: Aircraft Worker/Techni daniel ID = [id number] for ROSSANA SALINAS BASIC METABOLIC [id number] 06:09:12 Test Item Value Reference Range Interpretation [...] S NOT APPLICABLE FOR DIALYSIS PATIEN TS. Aircraft Worker ID - BANDAR [facility] W/PLT COUNT & AUTO [id number] 05:37:39 Test Item Value Reference Range Interpretation [...] PERCENT (BEAKER) (test code = 2801) SARS-COV2/RT-PCR ([facility])2021-09-03 16:03:43 Test Item Value Reference Range Interpretation Comments SARS-COV2/RT-PCR (test Negative Not Detected, Negative, code = 5483211) See external report for linked test SARS-COV-2 PERFORMING LAB [facility] (test code = 5730655) Negative result for this test determines that [...] of the Act.Fact Sheet for Healthcare Prov iders:https://www.PPDai/sites/default/files/product/documents/Fact_Sheet_HC _Ojkpmnoly_Mwly_NWSZ-ZjC-3.pdfFact Sheet for Healthcare Patients:https://www.PPDai/sites/default/files/product/docume nts/Gxtt_Kmqqs_Hoahjlmh_Axkx_INHB-LnE-6.pdfPerforming Laboratory:[facility] [facility], [place] [address]HCYFG METABOLIC PANEL 2021-09-02 04:27:05 Test Item Value [...] S NOT APPLICABLE FOR DIALYSIS PATIEN TS. Aircraft Worker ID - BANDAR [id number] 04:23:13 Test Item Value Reference Range Interpretation Comments MAGNESIUM (BEAKER) (test code = 2.2 mg/dL 1.6-2.6 627) Aircraft Worker ID - BANDAR [id number] 04:23:13 Test Item Value Reference Range Interpretation Comments PHOSPHORUS (BEAKER) (test code = 3.9 mg/dL 2.3-4.7 604) Aircraft Worker ID - BANDAR MCBC W/PLT COUNT & AUTO [id number] 04:13:07 Test Item Value Reference Range Interpretation [...] (BEAKER) (test code = 2801) Paraneoplastic Panel, [id number] 09:50:29 Test Item Value Reference Range Interpretation Comments PARANEOPLASTIC ANTIBODY See scanned report (test code = 12302215) CECELIA (test code = CECELIA) See scanned report [facility], [id number] 09:50:29 Test Item Value Reference Range Interpretation Comments PARANEOPLASTIC ANTIBODY See scanned report (test code = 92593755) CECELIA (test code = CECELIA) See scanned report [facility]ane[facility] Panel, [id number] 09:50:29 Test Item Value Reference Range Interpretation Comments PARANEOPLASTIC ANTIBODY See scanned report (test code = 34190594) CECELIA (test code = CECELIA) See scanned report [facility] HospitalPARANEOPLASTIC AB EVAL W/ REFLEX TITER & LB, CSF 2021-09-01 09:50:29 Test Item Value Reference Range Interpretation Comments PARANEOPLASTIC ANTIBODY See scanned report (test code = 90965754) See scanned reportPOCT-GLUCOSE [id number] 16:50:16 Test Item Value Reference Range Interpretation Comments POC-GLUCOSE METER 84 mg/dL 70-110 : TESTED A T [facility] 6720 ([employer]AKER) (test code = [facility], 1538) 259[address]: Aircraft Worker/Techni daniel ID = [id number] for MICHELLE N, THOMAS POCT-GLUCOSE [id number] 12:37:05 Test Item Value Reference Range Interpretation Comments POC-GLUCOSE METER 109 mg/dL 70-110 : TESTED A T [facility] 6720 (BEAKER) (test code = [facility] [employer] [facility], 1538) [address]: Aircraft Worker/Techni daniel ID = [id number] for KENNEDY RIN, THOMAS VALPROIC ACID LEVEL, [id number] 12:00:18 Test Item Value Reference Range Interpretation Comments VALPROIC ACID TOTAL (AKER) (test 53 ug/mL 50-100 code = 924) Therapeutic range for some clinical conditions may be >100 ug/mLOperator ID - BANDAR MPOCT-GLUCOSE [id number] 06:08:37 Test Item Value Reference Range Interpretation Comments POC-GLUCOSE METER 82 mg/dL 70-110 : TESTED A T [facility] 6720 (BEAKER) (test code = [facility] [place], 1538) 289[address]: Aircraft Worker/Techni daniel ID = [id number] for MARGARITO CAMPUZANO BASIC METABOLIC [id number] 03:48:13 Test Item Value Reference Range Interpretation [...] S NOT APPLICABLE FOR DIALYSIS PATIEN TS. Aircraft Worker ID - BANDAR [id number] 03:29:08 Test Item Value Reference Range Interpretation Comments MAGNESIUM (BEAKER) (test code = 2.2 mg/dL 1.6-2.6 627) Aircraft Worker ID - BANDAR [id number] 03:29:08 Test Item Value Reference Range Interpretation Comments PHOSPHORUS (BEAKER) (test code = 2.9 mg/dL 2.3-4.7 604) Aircraft Worker ID - BANDAR [id number] 03:18:24 Test Item Value Reference Range Interpretation Comments PARTIAL THROMBOPLASTIN TIME 63.2 seconds 22.5-36.0 H (BEAKER) (test code = 760) CBC W/PLT COUNT & AUTO [id number] 03:07:32 Test Item Value Reference Range Interpretation [...] PERCENT (BEAKER) (test code = 2801) POCT-GLUCOSE [id number] 23:42:07 Test Item Value Reference Range Interpretation Comments POC-GLUCOSE METER 81 mg/dL 70-110 : TESTED A T [facility] 6720 (BEAKER) (test code = ANIL [facility], 1538) 82389: Aircraft Worker/Techni daniel ID = [id number] for MARGARITO CAMPUZANO POCT-GLUCOSE [id number] 18:26:13 Test Item Value Reference Range Interpretation Comments POC-GLUCOSE METER 87 mg/dL 70-110 : TESTED A T [facility] 6720 (BEAKER) (test code = ANIL Brown [facility], 1538) 56673: Aircraft Worker/Techni daniel ID = [id number] for KWABENA MENDOZA RAD, CHEST, 1 VIEW, NON [id number] 12:12:00Reason for exam:->Mechanical VentilationShould this be performed at the bedside?->Yes [facility] 1965 Sex: FFINAL [...] MDReport Verified Date/Time: 08/30/2021 12:12:03 Reading Location: [facility] Radiology Reading Room POCT-GLUCOSE [id number] 11:48:25 Test Item Value Reference Range Interpretation Comments POC-GLUCOSE METER 83 mg/dL 70-110 : Notified RN/MD: TESTED (BEAKER) (test code = AT [facility] 67[address] [facility] 1538) [facility], 770 30: Aircraft Worker/Techni daniel ID = [id number] for KWABENA MENDOZA POCT-GLUCOSE [id number] 06:02:06 Test Item Value Reference Range Interpretation Comments POC-GLUCOSE METER 83 mg/dL 70-110 : TESTED A T [facility] 6720 (BEAKER) (test code = MICHAELLEYASMINE R [facility], 1538) 67383: Aircraft Worker/Techni daniel ID = [id number] for MARGARITO CAMPUZANO BASIC METABOLIC [id number] 05:17:36 Test Item Value Reference Range Interpretation [...] S NOT APPLICABLE FOR DIALYSIS PATIEN TS. Aircraft Worker ID - [id number] 05:16:29 Test Item Value Reference Range Interpretation Comments PHOSPHORUS (BEAKER) (test code = 2.2 mg/dL 2.3-4.7 L 604) Aircraft Worker ID - [id number] 05:16:28 Test Item Value Reference Range Interpretation Comments MAGNESIUM (BEAKER) (test code = 2.0 mg/dL 1.6-2.6 627) Aircraft Worker ID - DBPOCT-GLUCOSE [id number] 04:55:04 Test Item Value Reference Range Interpretation Comments POC-GLUCOSE METER 84 mg/dL 70-110 : TESTED A T [facility] 6720 (BEAKER) (test code = ANIL Nithya [place], 1538) [address]: Aircraft Worker/Techni daniel ID = [id number] for MARGARITO CAMPUZANO [id number] 04:04:18 Test Item Value Reference Range Interpretation Comments PARTIAL THROMBOPLASTIN TIME 81.3 seconds 22.5-36.0 H (BEAKER) (test code = 760) CBC W/PLT COUNT & AUTO [id number] 03:53:12 Test Item Value Reference Range Interpretation [...] PERCENT (BEAKER) (test code = 2801) POCT-GLUCOSE [id number] 23:51:43 Test Item Value Reference Range Interpretation Comments POC-GLUCOSE METER 72 mg/dL 70-110 : TESTED A T [facility] 6720 (BEAKER) (test code = [facility], 1538) 94150: Aircraft Worker/Techni daniel ID = [id number] for MARGARITO CAMPUZANO [id number] 22:34:43 Test Item Value Reference Range Interpretation Comments PARTIAL THROMBOPLASTIN TIME 93.8 seconds 22.5-36.0 H (BEAKER) (test code = 760) POCT-GLUCOSE [id number] 18:22:56 Test Item Value Reference Range Interpretation Comments POC-GLUCOSE METER 90 mg/dL 70-110 : TESTED A T [facility] 6720 (BEAKER) (test code = [facility], 1538) 26867: Aircraft Worker/Techni daniel ID = [id number] for KWABENA MENDOZA [id number] 15:34:45 Test Item Value Reference Range Interpretation Comments PARTIAL THROMBOPLASTIN TIME 116.4 seconds 22.5-36.0 H (BEAKER) (test code = 760) RAD, ABDOMEN/KUB, 1 VIEW [id number] 13:45:00Reason for exam:->NG placement [facility] : 1965 Sex: FFINAL REPORT RAD, ABDOMEN/KUB, [...] overlies the gastroduodenal junction. Signed: Fabian Wild [facility] Verified Date/Time: 08/29/2021 13:45:52 Reading Location: [facility] Radiology Reading Room , CHEST, 1 VIEW, NON [id number] 12:35:00Reason for exam:->Mechanical VentilationShould this be performed at the bedside?->Yes [facility] CORONADO : 1965 Sex: [...] Wild Verified Date/Time: 08/29/2021 12:35:35 Reading Location: [facility] Radiology Reading Room -GLUCOSE [id number] 12:00:31 Test Item Value Reference Range Interpretation Comments POC-GLUCOSE METER 99 mg/dL 70-110 : [facility]ER[facility] (test code = ANIL Brown [facility], 1538) 24778: Aircraft Worker/Techni daniel ID = [id number] for KWABENA MENDOZA [id number] 07:13:11 Test Item Value Reference Range Interpretation Comments PARTIAL THROMBOPLASTIN TIME 60.8 seconds 22.5-36.0 H (BEAKER) (test code = 760) COMPREHENSIVE METABOLIC [id number] 05:57:39 Test Item Value Reference Range Interpretation [...] S NOT APPLICABLE FOR DIALYSIS PATIEN TS. Aircraft Worker ID - [id number] 05:51:57 Test Item Value Reference Range Interpretation Comments MAGNESIUM (BEAKER) (test code = 2.3 mg/dL 1.6-2.6 627) Aircraft Worker ID - [id number] 05:51:57 Test Item Value Reference Range Interpretation Comments PHOSPHORUS (BEAKER) (test code = 2.4 mg/dL 2.3-4.7 604) Aircraft Worker ID - DBPOCT-GLUCOSE [id number] 05:44:30 Test Item Value Reference Range Interpretation Comments POC-GLUCOSE METER 87 mg/dL 70-110 : TESTED A T [facility] 6720 (BEAKER) (test code = [place] Nith[place], 1538) 575[address]: Aircraft Worker/Techni daniel ID = [id number] for Gómez Choudhary CBC W/PLT COUNT & AUTO [id number] 04:08:39 Test Item Value Reference Range Interpretation [...] (BEAKER) (test code = 2801) Blood gas, [id number] 04:05:56 Test Item Value Reference Range Interpretation Comments pH, Arterial (test code 7.40 7.35-7.45 = 2744-1) pCO2, Arterial (test 40 See_Comment [Autom ated code = 2019-8) message] The system which generated this result [...] 21 Lab Interpretation Abnormal (test code = 12903-4) [facility], [id number] 04:05:56 Test Item Value Reference Range Interpretation [...] 21 Lab Interpretation Abnormal (test code = 48936-8) [facility], [id number] 04:05:56 Test Item Value Reference Range Interpretation Comments pH, Arterial (test code 7.40 7.35-7.45 = 2744-1) pCO2, Arterial (test 40 See_Comment [Autom ated code = 2019-8) message] The system which generated this result [...] = 2708-6) HCO3, Arterial (test 24 mmol/L -29 code = 1960-4) Base Excess, Arterial -0.8 mmol/L -2.0-3.0 (test code = 1925-7) Patient Temperature 36.6 (test code = 8310-5) FIO2 (test code = 1819) 21 Lab Interpretation Abnormal (test code = 68724-0) [facility] HospitalBLOOD GAS, [id number] 04:05:56 Test Item Value Reference Range Interpretation [...] FIO2 (BEAKER) (test code = 1819) 21.0 [id number] 00:56:24 Test Item Value Reference Range Interpretation Comments PARTIAL THROMBOPLASTIN TIME 71.9 seconds 22.5-36.0 H (BEAKER) (test code = 760) POCT-GLUCOSE [id number] 00:41:07 Test Item Value Reference Range Interpretation Comments POC-GLUCOSE METER 91 mg/dL 70-110 : TESTED A T [facility] 6720 (BEAKER) (test code = [facility], 153) 41403: Aircraft Worker/Techni daniel ID = [id number] for Gómez Choudhary [id number] 22:35:43 Test Item Value Reference Range Interpretation Comments PARTIAL THROMBOPLASTIN TIME 126.1 seconds 22.5-36.0 H (BEAKER) (test code = 760) POCT-GLUCOSE [id number] 18:20:04 Test Item Value Reference Range Interpretation Comments POC-GLUCOSE METER 95 mg/dL 70-110 : TESTED A T [facility] 6720 (BEAKER) (test code = [facility], 153) 31995: Aircraft Worker/Techni daniel ID = [id number] for Estelle Riley [id number] 13:35:16 Test Item Value Reference Range Interpretation Comments PARTIAL THROMBOPLASTIN TIME 96.0 seconds 22.5-36.0 H (BEAKER) (test code = 760) POCT-GLUCOSE [id number] 12:13:53 Test Item Value Reference Range Interpretation Comments POC-GLUCOSE METER 107 mg/dL 70-110 : TESTED A T [facility] 6720 (BEAKER) (test code = [facility], 153) 27641: Aircraft Worker/Techni daniel ID = [id number] for Mary Arango POCT-GLUCOSE [id number] 07:28:56 Test Item Value Reference Range Interpretation Comments POC-GLUCOSE METER 120 mg/dL 70-110 H : TESTED A T [facility] 6720 (BEAKER) (test code = [facility], 153) 13920: Aircraft Worker/Techni daniel ID = [id number] for MIGUEL VILLANUEVA BLOOD GAS, [id number] 05:13:53 Test Item Value Reference Range Interpretation [...] (test code = 1819) 21.0 BASIC METABOLIC [id number] 04:56:46 Test Item Value Reference Range Interpretation [...] S NOT APPLICABLE FOR DIALYSIS PATIEN TS. Aircraft Worker ID - [id number] 04:55:26 Test Item Value Reference Range Interpretation Comments MAGNESIUM (BEAKER) (test code = 2.1 mg/dL 1.6-2.6 627) Aircraft Worker ID - [id number] 04:55:26 Test Item Value Reference Range Interpretation Comments PHOSPHORUS (BEAKER) (test code = 1.7 mg/dL 2.3-4.7 L 604) Aircraft Worker ID - DBPT/[id number] 04:45:02 Test Item Value Reference Range Interpretation Comments PROTIME (BEAKER) (test 15.4 seconds 11.9-14.2 H code = 759) INR (BEAKER) (test 1.24 See_Comment [Automat ed code = 370) message] The sy stem which generated this result transmitted reference range : <=5.90. The reference range was not used to interpret this result as normal/abnormal . PARTIAL THROMBOPLASTIN 60.5 seconds 22.5-36.0 H TIME (YONNYAKER) (test code = 760) RECOMMENDED COUMADIN/WARFARIN INR THERAPY RANGESSTANDARD DOSE: 2.0 - 3.0 Includes: PROPHYLAXIS for venous thrombosis, systemic embolization; TREATMENT for venous thrombosis and/or pulmonary embolus.HIGH RISK: Target INR is 2.5-3.5 for patients with mechanical heart valves.RAD, CHEST, 1 VIEW, NON [id number] 04:45:00Reason for exam:->Mechanical VentilationShould this be performed at the bedside?->Yes [facility] 1965 Sex: FFINAL REPORT RAD, CHEST, 1 VIEW, NON DEPT INDICATION: Mechanical VentilationCOMPARISON: Prior day's exam FINDINGS: Portable frontal view of the chest. IMPRESSION: Support Lines: Stable. Lungs and pleura: No airspace consolidation or effusion. No pneumothorax. Heart and mediastinum: Stable contours. Additional findings: None. Signed: Daiana Rudd Verified Date/Time: 08/28/2021 04:45:57 CBC W/PLT COUNT & AUTO [id number] 04:33:07 Test Item Value Reference Range Interpretation Comments WHITE BLOOD CELL COUNT (CARLY) 10.1 K/ L 3.5-10.5 (test code = [...] PERCENT (BEAKER) (test code = 2801) POCT-GLUCOSE [id number] 23:58:48 Test Item Value Reference Range Interpretation Comments POC-GLUCOSE METER 112 mg/dL 70-110 H : TESTED A T [facility] 6720 (BEAKER) (test code = [facility], 1538) 30832: Aircraft Worker/Techni daniel ID = [id number] for Jamel Wallis PT/[id number] 21:44:25 Test Item Value Reference Range Interpretation [...] patients with mechanical heart valves.VALPROIC ACID LEVEL, [id number] 20:58:58 Test Item Value Reference Range Interpretation Comments VALPROIC ACID TOTAL (BEAKER) (test 61 ug/mL 50-100 code = 924) Therapeutic range for some clinical conditions may be >100 ug/mLOperator ID - DBPOCT-GLUCOSE [id number] 17:42:41 Test Item Value Reference Range Interpretation Comments POC-GLUCOSE METER 94 mg/dL 70-110 : TESTED A T [facility] 6720 (BEAKER) (test code = [facility], 1538) 97264: Aircraft Worker/Techni daniel ID = [id number] for Thi Julian [id number] 15:29:15 Test Item Value Reference Range Interpretation Comments PARTIAL THROMBOPLASTIN TIME 74.7 seconds 22.5-36.0 H (BEAKER) (test code = 760) POCT-GLUCOSE [id number] 12:32:00 Test Item Value Reference Range Interpretation Comments POC-GLUCOSE METER 95 mg/dL 70-110 : TESTED A T [facility] 6720 (BEAKER) (test code = [facility] [place], 1538) 10094: Aircraft Worker/Techni daniel ID = [id number] for Nguyen Coy POCT-GLUCOSE [id number] 10:00:37 Test Item Value Reference Range Interpretation Comments POC-GLUCOSE METER 124 mg/dL 70-110 H : [facility]) (test code = ANIL Brown [facility], 1538) 57311: Aircraft Worker/Techni daniel ID = [id number] for Estelle Knowles RAD, CHEST, 1 VIEW, NON [id number] 08:06:00Reason for exam:->Mechanical VentilationShould this be performed at the bedside?->Yes [facility] : 1965 Sex: FFINAL REPORT RAD, CHEST, 1 VIEW, NON DEPT INDICATION: Mechanical VentilationCOMPARISON: Prior day's exam FINDINGS: Portable frontal view of the chest. IMPRESSION: Support Lines: Feeding tube descends below the diaphragm. Dialysis catheter tip overlies the right atrium. PICC tip overlies the atriocaval junction. Lungs and pleura: Mild diffuse bilateral interstitial thickening.No significant pneumothorax. Heart and mediastinum: Stable contours. Stable surgical changes. Additional findings: None. Signed: Ruth Benítez Verified Date/Time: 08/27/2021 08:06:25 BASIC METABOLIC [id number] 07:55:43 Test Item Value Reference Range Interpretation [...] S NOT APPLICABLE FOR DIALYSIS PATIEN TS. Aircraft Worker ID - BANDAR [id number] 07:50:28 Test Item Value Reference Range Interpretation Comments PHOSPHORUS (BEAKER) 1.7 mg/dL 2.3-4.7 L Specimen slightly (test code = 604) hemolyzed Aircraft Worker ID - BANDAR [id number] 07:50:27 Test Item Value Reference Range Interpretation Comments MAGNESIUM (BEAKER) 2.0 mg/dL 1.6-2.6 Specimen slightly (test code = 627) hemolyzed Aircraft Worker ID - BANDAR MPT/[id number] 07:27:38 Test Item Value Reference Range Interpretation [...] for patients with mechanical heart valves.BLOOD GAS, [id number] 07:25:05 Test Item Value Reference Range Interpretation [...] 1819) 21.0 CBC W/PLT COUNT & AUTO [id number] 07:17:29 Test Item Value Reference Range Interpretation [...] PERCENT (BEAKER) (test code = 2801) POCT-GLUCOSE [id number] 07:13:25 Test Item Value Reference Range Interpretation Comments POC-GLUCOSE METER 63 mg/dL 70-110 L : TESTED A T [facility] 6720 (BEAKER) (test code = [facility] [employer] [facility], 1538) 60368: Aircraft Worker/Techni daniel ID = [id number] for MIGUEL VALENCIA POCT-GLUCOSE [id number] 03:43:12 Test Item Value Reference Range Interpretation Comments POC-GLUCOSE METER 117 mg/dL 70-110 H : TESTED A T [facility] 6720 (BEAKER) (test code = [facility], 1538) 26641: Aircraft Worker/Techni daniel ID = [id number] for MIGUEL VILLANUEVA Prepare [id number] 23:55:00 Test Item Value Reference Range Interpretation Comments CROSSMATCH (test code = 2264) COMPATIBLE Unit ABO (test code = O Pos 3081659) UNIT NUMBER (test code = [id number] 934-0) Status (test code = 3846973) [place]_TIMEINCHART Blood Bank Product (test code RED BLOOD CELLS = 2263) PRODUCT CODE (test code = O5817T86 933-2) [facility] [id number] 23:55:00 Test Item Value Reference Range Interpretation Comments CROSSMATCH (test code = 2264) COMPATIBLE Unit ABO (test code = O Pos 8286306) UNIT NUMBER (test code = [id number] 934-0) Status (test code = 8974039) [facility] Product (test code RED BLOOD CELLS = 2263) PRODUCT CODE (test code = S9240P13 933-2) [facility] [id number] 23:55:00 Test Item Value Reference Range Interpretation Comments CROSSMATCH (test code = 2264) COMPATIBLE Unit ABO (test code = O Pos 2720910) UNIT NUMBER (test code = [id number] 934-0) Status (test code = 2431650) [place] Blood Bank Product (test code RED BLOOD CELLS = 2263) PRODUCT CODE (test code = O9231V85 933-2) [facility] HospitalPO[facility] [id number] 18:21:30 Test Item Value Reference Range Interpretation Comments POC-GLUCOSE METER 121 mg/dL 70-110 H : Notified RN/MD: (CARLY) (test code = TESTED AT [facility] 6774 2914) [facility], [address]: Aircraft Worker/Techni daniel ID = [id number] for LL OYD, TIKEYA VALPROIC ACID LEVEL, [id number] 17:02:29 Test Item Value Reference Range Interpretation [...] Igg Index,Csf (test 0.58 <0.66 code = 7060835) Albumin, CSF (test 5.1 mg/dL 8.0-42.0 L code = 0748994) IgG, CSF (test code 1.2 mg/dL 0.8-7.7 = ) IMMUNOGLOBULIN G, 900 mg/dL 600-1640 SERUM (test code = 4968790) Albumin, Serum (test 2.2 g/dL 3.5-5.2 L The Ig G Synthesis code = 7872360) rate, CSF an d IgG index, CSF are two formulae forestimating t he amount of IgG produced in the central nervous system. Evidenc eof increased synthesis of Ig G provides suppor t for the diagnos is of multiplescleros is. CECELIA (test code = Performing Lab EZ CECELIA) [employer] [facility] [address] [place] [address] Shirlene Fernandes MD, PhD, GUNJAN Lab Interpretation Abnormal (test code = 06981-9) [facility] (CSF + Blood)2021-08-26 13:15:35 Test Item [...] Igg Index,Csf (test 0.58 <0.66 code = 20190608) Albumin, CSF (test 5.1 mg/dL 8.0-42.0 L code = 1892162) IgG, CSF (test code 1.2 mg/dL 0.8-7.7 = ) IMMUNOGLOBULIN G, 900 mg/dL 600-1640 SERUM (test code = 7416862) Albumin, Serum (test 2.2 g/dL 3.5-5.2 L The Ig G Synthesis code = 9498848) rate, CSF an d IgG index, CSF are two formulae forestimating t he amount of IgG produced in the central nervous system. Evidenc eof increased synthesis of Ig G provides suppor t for the diagnos is of multiplescleros is. CECELIA (test code = Performing Lab EZ CECELIA) [facility] [address] [place] [address] Shirlene Fernandes MD, PhD, GUNJAN Lab Interpretation Abnormal (test code = 08866-2) [facility] (CSF + Blood)2021-08-26 13:15:35 Test Item [...] Igg Index,Csf (test 0.58 <0.66 code = 1119898) Albumin, CSF (test 5.1 mg/dL 8.0-42.0 L code = 7603774) IgG, CSF (test code 1.2 mg/dL 0.8-7.7 = ) IMMUNOGLOBULIN G, 900 mg/dL 600-1640 SERUM (test code = 9794713) Albumin, Serum (test 2.2 g/dL 3.5-5.2 L The Ig G Synthesis code = 1278482) rate, CSF an d IgG index, CSF are two formulae forestimating t he amount of IgG produced in the central nervous system. Evidenc eof increased synthesis of Ig G provides suppor t for the diagnos is of multiplescleros is. CECELIA (test code = Performing Lab EZ CECELIA) [facility] [address] [place] [address] Shirlene Fernandes MD, PhD, GUNJAN Lab Interpretation Abnormal (test code = 88618-6) [facility]PO[facility] [id number] 13:11:52 Test Item Value Reference Range Interpretation Comments POC-GLUCOSE METER 131 mg/dL 70-110 H : TESTED A T [facility] 6720 (BEAKER) (test code = [place], 1538) [address]: Aircraft Worker/Techni daniel ID = [id number] for LL KWABENA CHEN [id number] 10:32:48 Test Item Value Reference Range Interpretation Comments PARTIAL THROMBOPLASTIN TIME 80.4 seconds 22.5-36.0 H (BEAKER) (test code = 760) RAD, CHEST, 1 VIEW, NON [id number] 08:24:00Reason for exam:->Mechanical VentilationShould this be performed at the bedside?->Yes [facility] : 1965 Sex: FFINAL [...] Benítez Verified Date/Time: 08/26/2021 08:24:59 Reading Location: [facility] Radiology Reading Room POCT-GLUCOSE [id number] 05:37:42 Test Item Value Reference Range Interpretation Comments POC-GLUCOSE METER 109 mg/dL 70-110 : TESTED A T [facility] 6720 (BEAKER) (test code [facility], = 1538) [address]: Aircraft Worker/Techni daniel ID = [id number] for DEVIN OLVERA BASIC METABOLIC [id number] 05:34:54 Test Item Value Reference Range Interpretation [...] S NOT APPLICABLE FOR DIALYSIS PATIEN TS. Aircraft Worker ID - DANA [id number] 05:33:11 Test Item Value Reference Range Interpretation Comments PHOSPHORUS (BEAKER) (test code = 1.8 mg/dL 2.3-4.7 L 604) Aircraft Worker ID - DANA [id number] 05:33:10 Test Item Value Reference Range Interpretation Comments MAGNESIUM (BEAKER) (test code = 2.1 mg/dL 1.6-2.6 627) Aircraft Worker ID - DANA [id number] 05:07:34 Test Item Value Reference Range Interpretation Comments PARTIAL THROMBOPLASTIN TIME 88.6 seconds 22.5-36.0 H (BEAKER) (test code = 760) BLOOD GAS, [id number] 05:04:51 Test Item Value Reference Range Interpretation [...] 1819) 21.0 CBC W/PLT COUNT & AUTO [id number] 01:02:26 Test Item Value Reference Range Interpretation [...] PERCENT (BEAKER) (test code = 2801) POCT-GLUCOSE [id number] 23:37:00 Test Item Value Reference Range Interpretation Comments POC-GLUCOSE METER 195 mg/dL 70-110 H : TESTED A T [facility] 6720 (BEAKER) (test code = [place], 1538) [address]: Aircraft Worker/Techni daniel ID = [id number] for TOM ALEGRIA [id number] 21:52:26 Test Item Value Reference Range Interpretation Comments PARTIAL THROMBOPLASTIN TIME 102.9 seconds 22.5-36.0 H (BEAKER) (test code = 760) SARS-COV2/RT-PCR ([facility])2021-08-25 21:18:24 Test Item Value Reference Range Interpretation Comments SARS-COV2/RT-PCR (test code = Negative Negative 0479587) Negative result for this test determines that [...] 564(g) of the Act.Testing was performed using Lao SARS-CoV-2 assay.Fact Sheet for Healthcare Providers:https://www.molecular.lao/marianela/RT SARS-CoV-2 HCP Fact Sheet 51- 490016.pdfFact Sheet for Healthcare Patients:https://www.[employer]marianela/RT SARS-CoV-2 Patient Fact Sheet EN 51-841791W9.pdfPOCT-GLUCOSE [id number] 18:25:16 Test Item Value Reference Range Interpretation Comments POC-GLUCOSE METER 247 mg/dL 70-110 H : TESTED A T [facility] 6720 (GoMoto) (test code = ANIL Brown [facility], 1538) [address]: Aircraft Worker/Techni daniel ID = [id number] for LEIGHTON TOWNSEND West Nile Virus, CSF, IgG and [id number] 15:54:50 Test Item Value Reference Range Interpretation Comments West Nile <0.90 REFERENCE RANGE : <0.90 Ab,Igm (test INTERPRETIVE CR ITERIA code = <0.90 Antibody not 6605590) detected 0.90 - 1.10 Equivocal >1.10 Antibody [...] (test Performing Lab code = CECELIA) *QDID [employer] [address] [address] Shirlene Fernandes MD, PhD [facility], [facility], IgG and [id number] 15:54:50 Test Item Value Reference Range Interpretation Comments West Nile <0.90 REFERENCE RANGE : <0.90 Ab,Igm (test INTERPRETIVE CR ITERIA code = <0.90 Antibody not 9825798) detected 0.90 - 1.10 Equivocal >1.10 Antibody [...] (test Performing Lab code = CECELIA) *QDID [employer] [address] [address] Shirlene Fernandes MD, PhD [facility], CSF, IgG and [id number] 15:54:50 Test Item Value Reference Range Interpretation Comments West Nile <0.90 REFERENCE RANGE : <0.90 Ab,Igm (test INTERPRETIVE CR ITERIA code = <0.90 Antibody not 8518713) detected 0.90 - 1.10 Equivocal >1.10 Antibody [...] (test Performing Lab code = CECELIA) *QDID [employer] [facility] [address] [place] [address] Shirlene Fernandes MD, PhD [facility]TT20[facility] 14:48:58 Test Item Value Reference Range Interpretation Comments PARTIAL THROMBOPLASTIN TIME 41.5 seconds 22.5-36.0 H (BEAKER) (test code = 760) POC-Glucose [id number] 12:57:53 Test Item Value Reference Range Interpretation Comments POC-Glucose Meter (test 106 mg/dL 70-110 : TE STED AT [facility] code = 1538) 6720 [facility], 770 30: Aircraft Worker/Techni daniel ID = [id number] for Lay Johns a Lab Interpretation (test Normal code = 44387-3) [facility] [id number] 12:57:53 Test Item Value Reference Range Interpretation Comments POC-GLUCOSE METER 106 mg/dL 70-110 : TESTED A T [facility] 6720 ([facility]) (test code = [facility] R [facility], 1538) [address]: Aircraft Worker/Techni daniel ID = [id number] for Si Nguyen tarango [employer] Leuko-Red [id number] 12:14:00 Test Item Value Reference Range Interpretation Comments CROSSMATCH (test code = 2264) COMPATIBLE Unit ABO (test code = O Pos 7480007) UNIT NUMBER (test code = [id number] 934-0) Status (test code = 1305159) READY Blood Bank Product (test code RED BLOOD CELLS = 2263) PRODUCT CODE (test code = I1548S98 933-2) [facility] [id number] 12:14:00 Test Item Value Reference Range Interpretation Comments CROSSMATCH (test code = 2264) COMPATIBLE Unit ABO (test code = O Pos 7913271) UNIT NUMBER (test code = [id number] 934-0) Status (test code = 8728028) READY Blood Bank Product (test code RED BLOOD CELLS = 2263) PRODUCT CODE (test code = B9404K81 933-2) [facility] [id number] 12:14:00 Test Item Value Reference Range Interpretation Comments CROSSMATCH (test code = 2264) COMPATIBLE Unit ABO (test code = O Pos 7458767) UNIT NUMBER (test code = [id number] 934-0) Status (test code = 7129338) READY Blood Bank Product (test code RED BLOOD CELLS = 2263) PRODUCT CODE (test code = [id number] 933-2) [facility]uk[facility]Red [id number] 12:14:00 Test Item Value Reference Range Interpretation Comments CROSSMATCH (test code = 2264) COMPATIBLE Unit ABO (test code = O Pos 2671317) UNIT NUMBER (test code = [id number] 934-0) Status (test code = 5732610) READY Blood Bank Product (test code RED BLOOD CELLS = 2263) PRODUCT CODE (test code = [id number] 933-2) [facility]APTT[facility] 11:50:59 Test Item Value Reference Range Interpretation Comments PARTIAL THROMBOPLASTIN TIME 124.7 seconds 22.5-36.0 H (BEAKER) (test code = 760) LACTIC ACID, [id number] 11:30:11 Test Item Value Reference Range Interpretation Comments LACTATE BLOOD VENOUS 0.96 mmol/L 0.50-2.20 Specime n slightly (2) (BEAKER) (test hemolyzed code = 2872) Aircraft Worker ID - BSRAD, CHEST, 1 VIEW, NON [id number] 11:18:00Reason for exam:- >Mechanical VentilationShould this be performed at the bedside?->Yes [facility] : 1965 Sex: FFINAL [...] surgical changes. Additionalfindings: None. Signed: Ruth Benítez MDReport Verified Date/Time: 08/25/2021 11:18:15 Reading Location: [facility] Radiology Reading Room Electronically signed by: RUTH BENÍTEZ MD on08/25/2021 11:18 AMSputum Culture + Gram [id number] 10:08:37 Test Item Value Reference Range Interpretation Comments Result (test code = 1+ Normal respiratory 6463-4) johnny present Gram Stain Result No organisms seen (test code = 1123) [facility] [id number] 10:08:37 Test Item Value Reference Range Interpretation Comments Result (test code = 1+ Normal respiratory 6463-4) johnyn present Gram Stain Result No organisms seen (test code = 1123) [facility] Gram [id number] 10:08:37 Test Item Value Reference Range Interpretation Comments Result (test code = 1+ Normal respiratory 6463-4) johnny present Gram Stain Result No organisms seen (test code = 1123) [facility] Gram [id number] 10:08:37 Test Item Value Reference Range Interpretation Comments Result (test code = 1+ Normal respiratory 6463-4) johnny present Gram Stain Result No organisms seen (test code = 1123) [facility] GRAM [id number] 10:08:37 Test Item Value Reference Range Interpretation Comments CULTURE (BEAKER) 1+ Normal respiratory (test code = 1095) johnny present GRAM STAIN RESULT <1+ WBCs (BEAKER) (test code = 1123) GRAM STAIN RESULT No organisms seen (BEAKER) (test code = 14750) HEPATIC FUNCTION [id number] 09:14:03 Test Item Value Reference Range Interpretation [...] code = < U/L 6-55 L 347) Aircraft Worker ID - BSCREATINE KINASE (CK)2021-08-25 09:01:58 Test Item Value Reference Range Interpretation Comments CREATINE KINASE TOTAL (BEAKER) (test 46 U/L 29-200 code = 380) Aircraft Worker ID - BSCBC (HEMOGRAM ONLY)2021-08-25 06:27:41 Test [...] H (BEAKER) (test code = 413) POC-Glucose [id number] 06:02:24 Test Item Value Reference Range Interpretation Comments POC-Glucose Meter (test 136 mg/dL 70-110 H : TE STED AT [facility] code = 1538) 6720 [facility], 770 30: Aircraft Worker/Techni daniel ID = [id number] for PRESTON HYATT Lab Interpretation (test Abnormal code = 59895-3) [facility] HospitalPOCT-GLUCOSE [id number] 06:02:24 Test Item Value Reference Range Interpretation Comments POC-GLUCOSE METER 136 mg/dL 70-110 H : TESTED A T [facility] 6720 (BEAKER) (test code = ANIL Brown [facility], 1538) 23679: Aircraft Worker/Techni daniel ID = [id number] for PRESTON HYATT [id number] 04:23:40 Test Item Value Reference Range Interpretation Comments PARTIAL THROMBOPLASTIN TIME 102.9 seconds 22.5-36.0 H (BEAKER) (test code = 760) [id number] 03:36:27 Test Item Value Reference Range Interpretation Comments PHOSPHORUS (BEAKER) (test code = 0.8 mg/dL 2.3-4.7 LL 604) Aircraft Worker ID - [facility] METABOLIC [id number] 03:35:15 Test Item Value Reference Range Interpretation [...] S NOT APPLICABLE FOR DIALYSIS PATIEN TS. Aircraft Worker ID - [id number] 03:31:58 Test Item Value Reference Range Interpretation Comments MAGNESIUM (BEAKER) (test code = 2.0 mg/dL 1.6-2.6 627) Aircraft Worker ID - BSLACTIC ACID, [id number] 03:23:15 Test Item Value Reference Range Interpretation Comments LACTATE BLOOD VENOUS 2.91 mmol/L 0.50-2.20 H Specime n slightly (2) (BEAKER) (test hemolyzed code = 2032) Aircraft Worker ID - BSCBC W/PLT COUNT & AUTO [id number] 03:22:48 Test Item Value Reference Range Interpretation [...] (BEAKER) (test code = 2801) Blood gas, [id number] 03:16:19 Test Item Value Reference Range Interpretation Comments pH, Arterial (test code 7.48 7.35-7.45 H = 2744-1) pCO2, Arterial (test 39 See_Comment [Autom ated message] code = 2019-8) The system [facility] generated this result transmit sally reference range : 35 - 45 mm Hg. The reference range was not used to interpret this result as normal/abnormal . pO2, Arterial (test 169 See_Comment H [Automa sally message] code = 2703-7) The system [facility] generated this result transmit sally reference range [...] 30 Lab Interpretation Abnormal (test code = 02725-5) [facility] HospitalBlood gas, [id number] 03:16:19 Test Item Value Reference Range Interpretation Comments pH, Arterial (test code 7.48 7.35-7.45 H = 2744-1) pCO2, Arterial (test 39 See_Comment [Autom ated message] code = 2019-8) The system [employer] generated this result transmit sally reference range : 35 - 45 mm Hg. The reference range was not used to interpret this result as normal/abnormal . pO2, Arterial (test 169 See_Comment H [Automa sally message] code = 2703-7) The system [employer] generated this result transmit sally reference range [...] 30 Lab Interpretation Abnormal (test code = 63115-2) [facility] [id number] 03:16:19 Test Item Value Reference Range Interpretation [...] (BEAKER) (test code = 1819) 30.0 POCT-GLUCOSE [id number] 23:21:14 Test Item Value Reference Range Interpretation Comments POC-GLUCOSE METER 219 mg/dL 70-110 H : TESTED A T [facility] 6720 (BEAKER) (test code = [place], 1538) [address]: Aircraft Worker/Techni daniel ID = [id number] for Lily Khan PHENYTOIN LEVEL, [id number] 18:02:03 Test Item Value Reference Range Interpretation Comments PHENYTOIN (DILANTIN) (BEAKER) 10.8 ug/mL 10.0-20.0 (test code = 605) Aircraft Worker ID - BSLactic Acid, [id number] 17:18:10 Test Item Value Reference Range Interpretation Comments Lactate, Art (test code = 3.3 mmol/L 0.5-2.2 H 2874) CECELIA (test code = CECELIA) Aircraft Worker ID - BS Lab Interpretation (test Abnormal code = 79495-9) [facility] HospitalLactic Acid, [id number] 17:18:10 Test Item Value Reference Range Interpretation Comments Lactate, Art (test code = 3.3 mmol/L 0.5-2.2 H 2874) CECELIA (test code = CECELIA) Aircraft Worker ID - BS Lab Interpretation (test Abnormal code = 60782-1) [facility] HospitalLactic Acid, [id number] 17:18:10 Test Item Value Reference Range Interpretation Comments Lactate, Art (test code = 3.3 mmol/L 0.5-2.2 H 2874) CECELIA (test code = CECELIA) Aircraft Worker ID - BS Lab Interpretation (test Abnormal code = 07800-6) [facility] HospitalLactic Acid, [id number] 17:18:10 Test Item Value Reference Range Interpretation Comments Lactate, Art (test code = 3.3 mmol/L 0.5-2.2 H 2874) CECELIA (test code = CECELIA) Aircraft Worker ID - BS Lab Interpretation (test Abnormal code = 66925-3) [facility] HospitalLactic Acid, [id number] 17:18:10 Test Item Value Reference Range Interpretation Comments Lactate, Art (test code = 3.3 mmol/L 0.5-2.2 H 2874) CECELIA (test code = CECELIA) Aircraft Worker ID - BS Lab Interpretation (test Abnormal code = 51074-1) [facility] HospitalLACTIC ACID, [id number] 17:18:10 Test Item Value Reference Range Interpretation Comments LACTATE BLOOD ARTERIAL (2) 3.3 mmol/L 0.5-2.2 H (BEAKER) (test code = 2874) Aircraft Worker ID - BSPOCT-GLUCOSE [id number] 17:14:39 Test Item Value Reference Range Interpretation Comments POC-GLUCOSE METER 201 mg/dL 70-110 H : TESTED A T [facility] 6720 (BEAKER) (test code = ANIL Nithya [facility], 1538) 269[address]: Aircraft Worker/Techni daniel ID = [id number] for DANA LIVE [id number] 17:11:31 Test Item Value Reference Range Interpretation Comments PARTIAL THROMBOPLASTIN TIME 34.6 seconds 22.5-36.0 (BEAKER) (test code = 760) POCT-GLUCOSE [id number] 15:32:40 Test Item Value Reference Range Interpretation Comments POC-GLUCOSE METER 205 mg/dL 70-110 H : TESTED A T [facility] 6720 (BEAKER) (test code [facility], = 1538) [address]882: Aircraft Worker/Techni daniel ID = [id number] for DRALENE AbadVIRAJ RAD, CHEST, 1 VIEW, NON [id number] 10:11:00Reason for exam:->post picc lineShould this be performed at the bedside?->Yes [facility] 1965 Sex: FFINAL [...] No acute bone abnormality. Signed: Sergio Ramirez MDRjohnson memorial hospital Verified Date/Time: 08/24/2021 10:11:09 [facility] gram [id number] 08:51:16 Test Item Value Reference Range Interpretation Comments Result (test code = 6463-4) No growth Gram Stain Result (test No organisms seen code = 1123) [facility] culture + gram [id number] 08:51:16 Test Item Value Reference Range Interpretation Comments Result (test code = 6463-4) No growth Gram Stain Result (test No organisms seen code = 1123) [facility] culture + gram [id number] 08:51:16 Test Item Value Reference Range Interpretation Comments Result (test code = 6463-4) No growth Gram Stain Result (test No organisms seen code = 1123) [facility] culture + gram [id number] 08:51:16 Test Item Value Reference Range Interpretation Comments Result (test code = 6463-4) No growth Gram Stain Result (test No organisms seen code = 1123) [facility] culture + gram [id number] 08:51:16 Test Item Value Reference Range Interpretation Comments Result (test code = 6463-4) No growth Gram Stain Result (test No organisms seen code = 1123) [facility] + GRAM [id number] 08:51:16 Test Item Value Reference Range Interpretation Comments CULTURE (BEAKER) (test No growth code = 1095) GRAM STAIN RESULT No White blood cells (BEAKER) (test code = seen 1123) GRAM STAIN RESULT No organisms seen (BEAKER) (test code = 52830) (CELLAVISION MANUAL DIFF)2021-08-24 07:11:26 Test Item Value [...] CONCENTRATION Adequate (CELLAVISION)(BEAKER) (test code = 3438) Aircraft Worker ID - dian humphreyAnni comments: Slide comments:CBC W/PLT COUNT & AUTO [id number] 07:11:25 Test Item Value Reference Range Interpretation [...] CELLS (BEAKER) (test code = 413) POCT-GLUCOSE [id number] 06:02:48 Test Item Value Reference Range Interpretation Comments POC-GLUCOSE METER 158 mg/dL 70-110 H : TESTED A T [facility] 6720 (BEAKER) (test code = [place], 1538) [address]: Aircraft Worker/Techni daniel ID = [id number] for Lily Khan BASIC METABOLIC [id number] 06:02:11 Test Item Value Reference Range Interpretation [...] S NOT APPLICABLE FOR DIALYSIS PATIEN TS. Aircraft Worker ID - DANA [id number] 05:50:44 Test Item Value Reference Range Interpretation Comments PHOSPHORUS (BEAKER) (test code = 1.6 mg/dL 2.3-4.7 L 604) Aircraft Worker ID - DANA [id number] 05:50:43 Test Item Value Reference Range Interpretation Comments MAGNESIUM (BEAKER) (test code = 2.1 mg/dL 1.6-2.6 627) Aircraft Worker ID - DANA LBLOOD GAS, [id number] 05:48:16 Test Item Value Reference Range Interpretation [...] (BEAKER) (test code = 1819) 30.0 CALCIUM, [id number] 05:48:16 Test Item Value Reference Range Interpretation Comments CALCIUM IONIZED (BEAKER) (test 1.09 mmol/L 1.12-1.27 L code = 698) PH, BLOOD (BEAKER) (test code = 7.43 1810) [id number] 05:40:48 Test Item Value Reference Range Interpretation Comments PARTIAL THROMBOPLASTIN TIME 143.9 seconds 22.5-36.0 H (BEAKER) (test code = 760) LACTIC ACID, [id number] 05:26:27 Test Item Value Reference Range Interpretation Comments LACTATE BLOOD VENOUS (2) (BEAKER) 2.61 mmol/L 0.50-2.20 H (test code = 2872) Aircraft Worker ID - BSRAD, CHEST, 1 VIEW, NON [id number] 01:27:00Reason for exam:- >Mechanical VentilationShould this be performed at the bedside?->Yes [facility] 1965 Sex: FFINAL [...] the distal stomach/proximal duodenum. Signed: Jerry Palencia MDReport Verified Date/Time: 08/24/2021 01:27:04 RAD, ABDOMEN/KUB, 1 VIEW [id number] 01:27:00Reason for exam:->s/p corpak placementShould this be performed at the bedside?->Yes [facility] : 1965 Sex: FFINAL [...] in the distal stomach/proximal duodenum. Signed: Jerry Palencai Verified Date/Time: 08/24/2021 01:27:04 POCT-GLUCOSE [id number] 23:59:45 Test Item Value Reference Range Interpretation Comments POC-GLUCOSE METER 205 mg/dL 70-110 H : TESTED A T [facility] 6720 (BEAKER) (test code = [facility], 1538) [address]: Aircraft Worker/Techni daniel ID = [id number] for MARGARITO DINH [id number] 21:22:54 Test Item Value Reference Range Interpretation Comments PARTIAL THROMBOPLASTIN TIME 119.0 seconds 22.5-36.0 H (BEAKER) (test code = 760) [id number] 19:09:03 Test Item Value Reference Range Interpretation Comments PARTIAL THROMBOPLASTIN TIME 198.9 seconds 22.5-36.0 HH (BEAKER) (test code = 760) POCT-GLUCOSE [id number] 16:52:22 Test Item Value Reference Range Interpretation Comments POC-GLUCOSE METER 225 mg/dL 70-110 H : TESTED A T [facility] 6720 (BEAKER) (test code = [facility], 1538) [address]: Aircraft Worker/Techni daniel ID = [id number] for MORGAN ASHLIEBERNADINE Alvarado [id number] 14:50:11 Test Item Value Reference Range Interpretation Comments PROCALCITONIN (BEAKER) (test code 5.78 ng/mL <0.05 H = 3036) SEPSIS RISK (ng/mL)Low: 0.05-0.50Intermediate: 0.51-2.00High: >=2.01Venous doppler arms [id number] 12:23:42Ejection FractionSLEH ECHO HEARTLAB MKCKESSON [facility] bilateral 2021-08-23 12:23:42Ejection FractionSLEH ECHO HEARTLAB MKCKESSON [facility] CenterVen[facility] doppler arms [id number] 12:23:42Ejection FractionSLEH ECHO HEARTLAB MKCKESSON [facility] [id number] 12:23:42Ejection FractionSLEH ECHO HEARTLAB MKCKESSON [facility] bilateral 2021-08-23 12:23:42Ejection FractionSLEH ECHO HEARTLAB MKCKESSON [facility] CenterAPTT2022-05-31 12:08:56 Test Item Value Reference Range Interpretation Comments PARTIAL THROMBOPLASTIN TIME 29.7 seconds 22.5-36.0 (BEAKER) (test code = 760) POCT-GLUCOSE [id number] 12:03:43 Test Item Value Reference Range Interpretation Comments POC-GLUCOSE METER 184 mg/dL 70-110 H : TESTED A T [facility] 6720 (AKER) (test code = [place]EL[place]INE [place], 1538) [address]: Aircraft Worker/Techni daniel ID = [id number] for AG BERNADINE PAK RAD, CHEST, 1 VIEW, NON [id number] 11:17:00Reason for exam:- >repositioning ettShould this be performed at the bedside?->Yes [facility] 1965 Sex: FFINAL [...] findings: None. Signed: Ruth Benítez Verified Date/Time: 08/23/2021 11:17:41 Reading Location: [facility] Radiology Reading Room , CHEST, 1 VIEW, NON [id number] 09:20:00Reason for exam:->Mechanical VentilationShould this be performed at the bedside?->Yes [facility]IF [facility]ATTONENDOLYN CORONADO : 1965 Sex: FFINAL REPORT Chest AP [...] Right lung clear. Normal vascularity. Signed: Junito Mayberry Verified Date/Time: 08/23/2021 09:20:01 Reading Location: [facility] Radiology Reading Room (CELLAVISION MANUAL DIFF)2021-08-23 06:42:11 [...] CONCENTRATION Adequate (CELLAVISION)(BEAKER) (test code = 3438) Aircraft Worker ID - Pandasterling comments: Slide comments:CBC W/PLT COUNT & AUTO [id number] 06:42:10 Test Item Value Reference Range Interpretation [...] 0-0 (BEAKER) (test code = 413) POCT-GLUCOSE [id number] 05:25:06 Test Item Value Reference Range Interpretation Comments POC-GLUCOSE METER 233 mg/dL 70-110 H : TESTED A T [facility] 6720 (BEAKER) (test code = [place], 1538) [address]: Aircraft Worker/Techni daniel ID = [id number] for Jaquelin Burns BASIC METABOLIC [id number] 04:30:11 Test Item Value Reference Range Interpretation [...] S NOT APPLICABLE FOR DIALYSIS PATIEN TS. Aircraft Worker ID - [id number] 04:18:30 Test Item Value Reference Range Interpretation Comments MAGNESIUM (BEAKER) (test code = 1.8 mg/dL 1.6-2.6 627) Aircraft Worker ID - [id number] 04:18:30 Test Item Value Reference Range Interpretation Comments PHOSPHORUS (BEAKER) (test code = 1.7 mg/dL 2.3-4.7 L 604) Aircraft Worker ID - DBBLOOD GAS, [id number] 04:06:03 Test Item Value Reference Range Interpretation [...] (BEAKER) (test code = 1819) 30.0 POCT-GLUCOSE [id number] 00:35:37 Test Item Value Reference Range Interpretation Comments POC-GLUCOSE METER 247 mg/dL 70-110 H : TESTED A T [facility] 6720 (BEAKER) (test code = [place], 1538) [address]751: Aircraft Worker/Techni daniel ID = [id number] for Jaquelin Burns [id number] 17:21:29 Test Item Value Reference Range Interpretation Comments ALBUMIN (BEAKER) (test code = 1145) 2.2 g/dL 3.5-5.0 L Aircraft Worker ID - CALVIN WPOCT-GLUCOSE [id number] 17:10:59 Test Item Value Reference Range Interpretation Comments POC-GLUCOSE METER 200 mg/dL 70-110 H : TESTED A T [facility] 6720 (CARLY) (test code = ANIL [place], 1538) 75872: Aircraft Worker/Techni daniel ID = [id number] for MICHAEL GARCIA RAD, CHEST, 1 VIEW, NON [id number] 07:38:00Reason for exam:->Mechanical VentilationShould this be performed at the bedside?->Yes [facility] : 1965 Sex: FFINAL [...] 08/22/2021 at 7:37 PM. Signed: Sergio Ramirez Verified Date/Time: 08/22/2021 07:38:56 Reading Location: [facility] C013Y CT Body Reading Room [...] CONCENTRATION Adequate (CELLAVISION)(BEAKER) (test code = 3438) Aircraft Worker ID - Katherine OverholtUser comments: Slide comments:CBC W/PLT COUNT & AUTO [id number] 07:17:14 Test Item Value Reference Range Interpretation [...] 0-0 (BEAKER) (test code = 413) POCT-GLUCOSE [id number] 05:49:24 Test Item Value Reference Range Interpretation Comments POC-GLUCOSE METER 171 mg/dL 70-110 H : TESTED A T [facility] 6720 (BEAKER) (test code = [place], 1538) [address]: Aircraft Worker/Techni daniel ID = [id number] for Zoe Lofton BASIC METABOLIC [id number] 05:17:50 Test Item Value Reference Range Interpretation [...] S NOT APPLICABLE FOR DIALYSIS PATIEN TS. Aircraft Worker ID - ILHIHYPKDJI8716-21-20 05:00:51 Test Item Value Reference Range Interpretation Comments MAGNESIUM (BEAKER) 1.9 mg/dL 1.6-2.6 Specimen slightly (test code = 627) hemolyzed Aircraft Worker ID - DBOperator ID - [id number] 05:00:51 Test Item Value Reference Range Interpretation Comments PHOSPHORUS (BEAKER) 3.3 mg/dL 2.3-4.7 Specimen slightly (test code = 604) hemolyzed Aircraft Worker ID - DBBLOOD GAS, [id number] 04:29:31 Test Item Value Reference Range Interpretation [...] (BEAKER) (test code = 1819) 30.0 POCT-GLUCOSE [id number] 23:59:55 Test Item Value Reference Range Interpretation Comments POC-GLUCOSE METER 187 mg/dL 70-110 H : TESTED A T [facility] 6720 (BEAKER) (test code = ANIL DYE [place], 1538) [address]: Aircraft Worker/Techni daniel ID = [id number] for Zoe Lofton Protein, [id number] 17:36:26 Test Item Value Reference Range Interpretation Comments Protein, CSF (test code = 13 mg/dL 15-45 L 2880-3) CECELIA (test code = CECELIA) Aircraft Worker ID - [id number] Lab Interpretation (test Abnormal code = 49266-8) [id number] 17:36:26 Test Item Value Reference Range Interpretation Comments Protein, CSF (test code = 13 mg/dL 15-45 L 2880-3) CECELIA (test code = CECELIA) Aircraft Worker ID - [id number] Lab Interpretation (test Abnormal code = 14966-5) [facility] [id number] 17:36:26 Test Item Value Reference Range Interpretation Comments Protein, CSF (test code = 13 mg/dL 15-45 L 2880-3) CECELIA (test code = CECELIA) Aircraft Worker ID - [id number] Lab Interpretation (test Abnormal code = 66145-7) [facility] [id number] 17:36:26 Test Item Value Reference Range Interpretation Comments Protein, CSF (test code = 13 mg/dL 15-45 L 2880-3) CECELIA (test code = CECELIA) Aircraft Worker ID - [id number] Lab Interpretation (test Abnormal code = 16325-0) [facility] [id number] 17:36:26 Test Item Value Reference Range Interpretation Comments Protein, CSF (test code = 13 mg/dL 15-45 L 2880-3) CECELIA (test code = CECELIA) Aircraft Worker ID - [id number] Lab Interpretation (test Abnormal code = 99361-5) [facility] [id number] 17:36:26 Test Item Value Reference Range Interpretation Comments PROTEIN CSF (BEAKER) (test code = 13 mg/dL 15-45 L 378) Aircraft Worker ID - [id number] METABOLIC [id number] 16:48:28 Test Item Value Reference Range Interpretation [...] S NOT APPLICABLE FOR DIALYSIS PATIEN TS. Aircraft Worker ID - CALVIN [id number] 16:41:27 Test Item Value Reference Range Interpretation Comments PHOSPHORUS (BEAKER) 3.7 mg/dL 2.3-4.7 Specimen slightly (test code = 604) hemolyzed Aircraft Worker ID - CALVIN WMENINGITIS/ENCEPHALITIS [id number] 16:26:56 Test Item Value Reference Range Interpretation Comments E COLI K1 (test code = Not detected Not detected 98711-9) HAEMOPHILUS INFLUENZAE Not detected Not detected (test code = 83079-4) LISTERIA MONOCYTOGENES Not detected Not detected (test code = 94632-2) NEISSERIA MENINGITIDIS Not detected Not detected (test code = 44674-8) STREPTOCOCCUS Not detected Not detected AGALACTIAE (test code = 99670-9) STREPTOCOCCUS Not detected Not detected PNEUMONIAE (test code = 57694-2) Cytomegalovirus (CMV) Not detected Not detected (test code = 90084-7) ENTEROVIRUS (test code Not detected Not detected = 28741-9) Human herpesvirus 6 Not detected Not detected (HHV-6) (test code = 92084-2) Herpes simplex virus Not detected Not detected 1(HSV-1) (test code = 22617-6) HERPES SIMPLEX VIRUS Not detected Not detected 2(HSV-2) (test code = 57890-6) Human parechovirus Not detected Not detected (test code = 48874-7) Varicella-zoster virus Not detected Not detected (VZV) (test code = 73033-1) Cryptococcus Not detected Not detected neoformans/gattii (test code = 70780-6) CECELIA (test code = CECELIA) The performance [...] required. This sample was tested at the [facility] using the [employer] Meningitis Encephalitis Panel. It is FDA cleared and has been verified and approved by the [facility] for clinical use. This laboratory is CLIA-certified and [employer] (CAP)-accredited to perform high complexity testing. Lab Interpretation Normal (test code = 05345-2) [facility]IS [id number] 16:26:56 Test Item Value Reference Range Interpretation Comments E COLI K1 (test code = Not detected Not detected 15874-9) HAEMOPHILUS INFLUENZAE Not detected Not detected (test code = 57398-8) LISTERIA MONOCYTOGENES Not detected Not detected (test code = 36486-9) NEISSERIA MENINGITIDIS Not detected Not detected (test code = 16701-5) STREPTOCOCCUS Not detected Not detected AGALACTIAE (test code = 71173-5) STREPTOCOCCUS Not detected Not detected PNEUMONIAE (test code = 90198-3) Cytomegalovirus (CMV) Not detected Not detected (test code = 32581-2) ENTEROVIRUS (test code Not detected Not detected = 93460-5) Human herpesvirus 6 Not detected Not detected (HHV-6) (test code = 57359-7) Herpes simplex virus Not detected Not detected 1(HSV-1) (test code = 36364-5) HERPES SIMPLEX VIRUS Not detected Not detected 2(HSV-2) (test code = 57809-4) Human parechovirus Not detected Not detected (test code = 52250-5) Varicella-zoster virus Not detected Not detected (VZV) (test code = 48706-3) Cryptococcus Not detected Not detected neoformans/gattii (test code = 48426-9) CECELIA (test code = CECELIA) The performance [...] required. This sample was tested at the [facility]ostics [facility] using the [employer] Film[employer] Meningitis Encephalitis Panel. It is FDA cleared and has been verified and approved by the [facility] for clinical use. This laboratory is CLIA-certified and [employer] (CAP)-accredited to perform high complexity testing. Lab Interpretation Normal (test code = 97334-6) [facility] [id number] 16:26:56 Test Item Value Reference Range Interpretation Comments E COLI K1 (test code = Not detected Not detected 70177-3) HAEMOPHILUS INFLUENZAE Not detected Not detected (test code = 19868-0) LISTERIA MONOCYTOGENES Not detected Not detected (test code = 59387-5) NEISSERIA MENINGITIDIS Not detected Not detected (test code = 43855-1) STREPTOCOCCUS Not detected Not detected AGALACTIAE (test code = 33859-2) STREPTOCOCCUS Not detected Not detected PNEUMONIAE (test code = 04635-9) Cytomegalovirus (CMV) Not detected Not detected (test code = 28053-2) ENTEROVIRUS (test code Not detected Not detected = 06708-4) Human herpesvirus 6 Not detected Not detected (HHV-6) (test code = 64529-1) Herpes simplex virus Not detected Not detected 1(HSV-1) (test code = 06111-5) HERPES SIMPLEX VIRUS Not detected Not detected 2(HSV-2) (test code = 10147-9) Human parechovirus Not detected Not detected (test code = 97273-4) Varicella-zoster virus Not detected Not detected (VZV) (test code = 88637-4) Cryptococcus Not detected Not detected neoformans/gattii (test code = 63403-1) CECELIA (test code = CECELIA) The performance [...] required. This sample was tested at the [facility] using the [employer] Meningitis Encephalitis Panel. It is FDA cleared and has been verified and approved by the [facility] for clinical use. This laboratory is CLIA-certified and [employer] (CAP)-accredited to perform high complexity testing. Lab Interpretation Normal (test code = 42269-2) [facility] [id number] 16:26:56 Test Item Value Reference Range Interpretation Comments E COLI K1 (test code = Not detected Not detected 35882-9) HAEMOPHILUS INFLUENZAE Not detected Not detected (test code = 78948-0) LISTERIA MONOCYTOGENES Not detected Not detected (test code = 97520-6) NEISSERIA MENINGITIDIS Not detected Not detected (test code = 88557-4) STREPTOCOCCUS Not detected Not detected AGALACTIAE (test code = 15048-3) STREPTOCOCCUS Not detected Not detected PNEUMONIAE (test code = 04907-1) Cytomegalovirus (CMV) Not detected Not detected (test code = 88414-3) ENTEROVIRUS (test code Not detected Not detected = 47281-7) Human herpesvirus 6 Not detected Not detected (HHV-6) (test code = 32263-2) Herpes simplex virus Not detected Not detected 1(HSV-1) (test code = 71723-6) HERPES SIMPLEX VIRUS Not detected Not detected 2(HSV-2) (test code = 04448-3) Human parechovirus Not detected Not detected (test code = 08843-8) Varicella-zoster virus Not detected Not detected (VZV) (test code = 43444-8) Cryptococcus Not detected Not detected neoformans/gattii (test code = 82020-1) CECELIA (test code = CECELIA) The performance [...] required. This sample was tested at the [facility] using the [employer] Meningitis Encephalitis Panel. It is FDA cleared and has been verified and approved by the [facility] for clinical use. This laboratory is CLIA-certified and [employer] (CAP)-accredited to perform high complexity testing. Lab Interpretation Normal (test code = 72178-2) [facility] [id number] 16:26:56 Test Item Value Reference Range Interpretation Comments E COLI K1 (test code = Not detected Not detected 87660-2) HAEMOPHILUS INFLUENZAE Not detected Not detected (test code = 19910-5) LISTERIA MONOCYTOGENES Not detected Not detected (test code = 47640-2) NEISSERIA MENINGITIDIS Not detected Not detected (test code = 66299-2) STREPTOCOCCUS Not detected Not detected AGALACTIAE (test code = 17469-5) STREPTOCOCCUS Not detected Not detected PNEUMONIAE (test code = 66452-1) Cytomegalovirus (CMV) Not detected Not detected (test code = 88104-9) ENTEROVIRUS (test code Not detected Not detected = 60243-4) Human herpesvirus 6 Not detected Not detected (HHV-6) (test code = 08069-9) Herpes simplex virus Not detected Not detected 1(HSV-1) (test code = 06101-9) HERPES SIMPLEX VIRUS Not detected Not detected 2(HSV-2) (test code = 27503-1) Human parechovirus Not detected Not detected (test code = 68999-2) Varicella-zoster virus Not detected Not detected (VZV) (test code = 14287-1) Cryptococcus Not detected Not detected neoformans/gattii (test code = 47195-1) CECELIA (test code = CECELIA) The performance [...] required. This sample was tested at the [facility] using the [employer] Meningitis Encephalitis Panel. It is FDA cleared and has been verified and approved by the [facility] for clinical use. This laboratory is CLIA-certified and [employer] (CAP)-accredited to perform high complexity testing. Lab Interpretation Normal (test code = 83746-5) [facility] [id number] 16:26:56 Test Item Value Reference Range Interpretation Comments ESCHERICHIA COLI K1 (test code = Not detected Not detected 20151225) HAEMOPHILUS INFLUENZAE (test Not detected Not detected code = 20151226) LISTERIA MONOCYTOGENES (test Not detected Not detected code = 20151227) NEISSERIA MENINGITIDIS (test Not detected Not detected code = 20151228) STREPTOCOCCUS AGALACTIAE (test Not detected Not detected code = 3171793) STREPTOCOCCUS PNEUMONIAE (test Not detected Not detected code = 5207318) CYTOMEGALOVIRUS (CMV) (test code Not detected Not detected = 0778129) ENTEROVIRUS (test code = Not detected Not detected 6804652) HUMAN HERPESVIRUS 6 (HHV-6) Not detected Not detected (test code = 0729370) HERPES SIMPLEX VIRUS 1(HSV-1) Not detected Not detected (test code = 4387212) HERPES SIMPLEX VIRUS 2(HSV-2) Not detected Not detected (test code = 8970347) HUMAN PARECHOVIRUS (test code = Not detected Not detected 6015342) VARICELLA-ZOSTER VIRUS (VZV) Not detected Not detected (test code = 3554218) CRYPTOCOCCUS NEOFORMANS/GATTII Not detected Not detected (test code = 9540067) The performance of this test has not [...] required. This sample was tested at the [facility] using the [employer] MeningitisEncephalitis Panel. It is FDA cleared and has been verified and approved by the [facility] for clinical use. This laboratory is CLIA-certified and [employer] g[employer] (CAP)-accredited to perform high complexity testing.CSF cell count with [id number] 16:03:36 Test Item Value Reference Range Interpretation Comments Appearance (test Clear Clear code = 03990-9) Color (test code = Colorless Colorless 54189-8) RBCs (test code = 0 See_Comment [Automate d message] 792-2) The system [employer] generated this result transmit sally reference range : 0 - 5 /cu mm. The reference range was not used to interpret this result as normal/abnormal . WBCs (test code = 0 See_Comment [Automate d message] 806-0) The system [employer] generated this result transmit sally reference range : <=5 /cu mm. The reference range was not used to interpret this result as normal/abnormal . RBCs Fresh? (test Not Applicable code = 69636-0) # of Cells Diff'd 0 (test code = 74128-7) Tube Number (test 1 code = 2677) [facility] with ejexkwrjxxod3892-83-63 16:03:36 Test Item Value Reference Range Interpretation Comments Appearance (test Clear Clear code = 22918-0) Color (test code = Colorless Colorless 98024-7) RBCs (test code = 0 See_Comment [Automate d message] 792-2) The system [employer] generated this result transmit sally reference range : 0 - 5 /cu mm. The reference range was not used to interpret this result as normal/abnormal . WBCs (test code = 0 See_Comment [Automate d message] 806-0) The system [employer] generated this result transmit sally reference range : <=5 /cu mm. The reference range was not used to interpret this result as normal/abnormal . RBCs Fresh? (test Not Applicable code = 07607-9) # of Cells Diff'd 0 (test code = 84356-0) Tube Number (test 1 code = 2677) [facility] cell count with uqteuxdwvhma0203-42-52 16:03:36 Test Item Value Reference Range Interpretation Comments Appearance (test Clear Clear code = 65866-4) Color (test code = Colorless Colorless 27306-4) RBCs (test code = 0 See_Comment [Automate d message] 792-2) The system [employer] generated this result transmit sally reference range : 0 - 5 /cu mm. The reference range was not used to interpret this result as normal/abnormal . WBCs (test code = 0 See_Comment [Automate d message] 806-0) The system [employer] generated this result transmit sally reference range : <=5 /cu mm. The reference range was not used to interpret this result as normal/abnormal . RBCs Fresh? (test Not Applicable code = 20483-1) # of Cells Diff'd 0 (test code = 99011-6) Tube Number (test 1 code = 2677) [facility] cell count with otxdwlavjpdc3515-66-75 16:03:36 Test Item Value Reference Range Interpretation Comments Appearance (test Clear Clear code = 88594-1) Color (test code = Colorless Colorless 54977-1) RBCs (test code = 0 See_Comment [Automate d message] 792-2) The system [employer] generated this result transmit sally reference range : 0 - 5 /cu mm. The reference range was not used to interpret this result as normal/abnormal . WBCs (test code = 0 See_Comment [Automate d message] 806-0) The system [employer] generated this result transmit sally reference range : <=5 /cu mm. The reference range was not used to interpret this result as normal/abnormal . RBCs Fresh? (test Not Applicable code = 32647-3) # of Cells Diff'd 0 (test code = 03319-2) Tube Number (test 1 code = 2677) [facility] cell count with snblacwrtoww8051-23-63 16:03:36 Test Item Value Reference Range Interpretation Comments Appearance (test Clear Clear code = 77677-8) Color (test code = Colorless Colorless 41349-0) RBCs (test code = 0 See_Comment [Automate d message] 792-2) The system [employer] generated this result transmit sally reference range : 0 - 5 /cu mm. The reference range was not used to interpret this result as normal/abnormal . WBCs (test code = 0 See_Comment [Automate d message] 806-0) The system [employer] generated this result transmit sally reference range : <=5 /cu mm. The reference range was not used to interpret this result as normal/abnormal . RBCs Fresh? (test Not Applicable code = 75140-8) # of Cells Diff'd 0 (test code = 46659-0) Tube Number (test 1 code = 2677) [facility] CELL COUNT W/[id number] 16:03:36 Test Item Value Reference Range Interpretation [...] 1 (BEAKER) (test code = 2678) Glucose, [id number] 14:55:50 Test Item Value Reference Range Interpretation Comments Glucose, CSF (test code = 68 mg/dL 40-70 2342-4) CECELIA (test code = CECELIA) Aircraft Worker ID - CALVIN W Lab Interpretation (test Normal code = 11642-4) [facility] [id number] 14:55:50 Test Item Value Reference Range Interpretation Comments Glucose, CSF (test code = 68 mg/dL 40-70 2342-4) CECELIA (test code = CECELIA) Aircraft Worker ID - CALVIN W Lab Interpretation (test Normal code = 53786-9) [facility], [id number] 14:55:50 Test Item Value Reference Range Interpretation Comments Glucose, CSF (test code = 68 mg/dL 40-70 2342-4) CECELIA (test code = CECELIA) Aircraft Worker ID - CALVIN W Lab Interpretation (test Normal code = 80437-3) [facility], [id number] 14:55:50 Test Item Value Reference Range Interpretation Comments Glucose, CSF (test code = 68 mg/dL 40-70 2342-4) CECELIA (test code = CECELIA) Aircraft Worker ID - CALVIN W Lab Interpretation (test Normal code = 15002-4) [facility], [id number] 14:55:50 Test Item Value Reference Range Interpretation Comments Glucose, CSF (test code = 68 mg/dL 40-70 2342-4) CECELIA (test code = CECELIA) Aircraft Worker ID - CALVIN W Lab Interpretation (test Normal code = 97297-0) [facility], [id number] 14:55:50 Test Item Value Reference Range Interpretation Comments GLUCOSE CSF (BEAKER) (test code = 68 mg/dL 40-70 406) Aircraft Worker ID - CALVIN WPHENYTOIN LEVEL, [id number] 13:12:52 Test Item Value Reference Range Interpretation Comments PHENYTOIN (DILANTIN) (BEAKER) 14.6 ug/mL 10.0-20.0 (test code = 605) Aircraft Worker ID - CALVIN [id number] 13:10:45 Test Item Value Reference Range Interpretation Comments PHOSPHORUS (BEAKER) (test code = 1.3 mg/dL 2.3-4.7 LL 604) Aircraft Worker ID - CALVIN WBASIC METABOLIC [id number] 13:10:24 Test Item Value Reference Range Interpretation [...] S NOT APPLICABLE FOR DIALYSIS PATIEN TS. Aircraft Worker ID - CALVIN [id number] 13:08:12 Test Item Value Reference Range Interpretation Comments MAGNESIUM (BEAKER) (test code = 1.9 mg/dL 1.6-2.6 627) Aircraft Worker ID - CALVIN WHEMOGLOBIN AND [id number] 12:47:46 Test Item Value Reference Range Interpretation Comments HEMOGLOBIN (BEAKER) (test code = 7.5 GM/DL 11.2-15.7 L 410) HEMATOCRIT (BEAKER) (test code = 22.3 % 34.1-44.9 L 411) CBC W/PLT COUNT & AUTO [id number] 12:47:45 Test Item Value Reference Range Interpretation [...] = 2801) RAD, CHEST, 1 VIEW, NON [id number] 09:25:00Reason for exam:->Mechanical VentilationShould this be performed at the bedside?->Yes [facility] : 1965 Sex: FFINAL [...] Thayer Verified Date/Time: 08/21/2021 09:25:13 Reading Location: [address] Consult Reading Room POCT- GLUCOSE [id number] 06:30:02 Test Item Value Reference Range Interpretation Comments POC-GLUCOSE METER 89 mg/dL 70-110 : TESTED A T [facility] 6720 (BEAKER) (test code = MICHAELLEYASMINE D[place], 1538) [address]: Aircraft Worker/Techni daniel ID = [id number] for MIGUEL VALENCIA BLOOD GAS, [id number] 05:51:06 Test Item Value Reference Range Interpretation [...] FIO2 (BEAKER) (test code = 1819) 30.0 [id number] 04:38:02 Test Item Value Reference Range Interpretation Comments PHOSPHORUS (BEAKER) (test code = 0.9 mg/dL 2.3-4.7 LL 604) Aircraft Worker ID - CALVIN WOperator ID Chris SIMPSON WBASIC METABOLIC [id number] 04:08:48 Test Item Value Reference Range Interpretation [...] S NOT APPLICABLE FOR DIALYSIS PATIEN TS. Aircraft Worker ID Chris SIMPSON [id number] 04:03:45 Test Item Value Reference Range Interpretation Comments MAGNESIUM (BEAKER) (test code = 1.8 mg/dL 1.6-2.6 627) Aircraft Worker ID Chris SIMPSON WCBC W/PLT COUNT & AUTO [id number] 03:49:05 Test Item Value Reference Range Interpretation [...] PERCENT (BEAKER) (test code = 2801) POCT-GLUCOSE [id number] 00:31:54 Test Item Value Reference Range Interpretation Comments POC-GLUCOSE METER 96 mg/dL 70-110 : TESTED A Miguel Ángel [facility] 6720 (BEAKER) (test code = ANIL MARTINEZ, 1538) [address]: Aircraft Worker/Techni daniel ID = [id number] for MIGUEL VALENCIA POCT-GLUCOSE [id number] 22:33:19 Test Item Value Reference Range Interpretation Comments POC-GLUCOSE METER 103 mg/dL 70-110 : TESTED A T [facility] 6720 (CARLY) (test code = ANIL Brown [facility], 1538) [address]: Aircraft Worker/Techni daniel ID = [id number] for MIGUEL VILLANUEVA POCT-GLUCOSE [id number] 17:39:03 Test Item Value Reference Range Interpretation Comments POC-GLUCOSE METER 65 mg/dL 70-110 L : Notified RN/MD: TESTED (CARLY) (test code = AT [facility] 67[address] [facility] 1538) [facility], 770 30: Aircraft Worker/Techni daniel ID = [id number] for KWABENA MENDOZA PHENYTOIN LEVEL, [id number] 14:59:35 Test Item Value Reference Range Interpretation Comments PHENYTOIN (DILANTIN) (CARLY) 20.6 ug/mL 10.0-20.0 H (test code = 605) Aircraft Worker ID - AC FLORES, ABDOMEN/KUB, 1 VIEW [id number] 12:59:00Reason for exam:->[facility]ak [facility] : 1965 Sex: FFINAL [...] acute osseous abnormality is identified. Signed: Edwar Thayereport Verified Date/Time: 08/20/2021 12:59:34 Reading Location: [address] Consult Reading Room POCT-GLUCOSE METER 2021-08-20 12:16:21 Test Item Value Reference Range Interpretation Comments POC-GLUCOSE METER 97 mg/dL 70-110 : TESTED A T [facility] 6720 (BEAKER) (test code = [facility], 1538) [address]: Aircraft Worker/Techni daniel ID = [id number] for KWABENA MENDOZA POCT-GLUCOSE [id number] 11:16:00 Test Item Value Reference Range Interpretation Comments POC-GLUCOSE METER 56 mg/dL 70-110 L : TESTED A T [facility] 6720 (BEAKER) (test code = [facility], 1538) 12[address]: Aircraft Worker/Techni daniel ID = [id number] for MICHAEL MENDIOLA POCT-GLUCOSE [id number] 07:13:57 Test Item Value Reference Range Interpretation Comments POC-GLUCOSE METER 103 mg/dL 70-110 : TESTED A T [facility] 6720 (BEAKER) (test code = [facility], 1538) 97852: Aircraft Worker/Techni daniel ID = [id number] for MIGUEL VILLANUEVA POCT-GLUCOSE [id number] 06:22:57 Test Item Value Reference Range Interpretation Comments POC-GLUCOSE METER 52 mg/dL 70-110 L : TESTED A T [facility] 6720 (BEAKER) (test code = [facility], 1538) [address]06[address]: Aircraft Worker/Techni daniel ID = [id number] for MIGUEL VALENCIA BASIC METABOLIC [id number] 05:20:43 Test Item Value Reference Range Interpretation [...] S NOT APPLICABLE FOR DIALYSIS PATIEN TS. Aircraft Worker ID - BANDAR [id number] 05:13:27 Test Item Value Reference Range Interpretation Comments MAGNESIUM (BEAKER) (test code = 1.9 mg/dL 1.6-2.6 627) Aircraft Worker ID - BANDAR [id number] 05:13:27 Test Item Value Reference Range Interpretation Comments PHOSPHORUS (BEAKER) (test code = 2.5 mg/dL 2.3-4.7 604) Aircraft Worker ID - BANDAR MPTH, [id number] 05:10:33 Test Item Value Reference Range Interpretation Comments PARATHYROID HORMONE INTACT 172.7 pg/mL 8.5-72.5 H (BEAKER) (test code = 577) Aircraft Worker ID - BANDAR MBLOOD GAS, [id number] 04:57:07 Test Item Value Reference Range Interpretation [...] 1819) 30.0 CBC W/PLT COUNT & AUTO [id number] 04:52:45 Test Item Value Reference Range Interpretation [...] PERCENT (BEAKER) (test code = 2801) POCT-GLUCOSE [id number] 19:16:36 Test Item Value Reference Range Interpretation Comments POC-GLUCOSE METER 87 mg/dL 70-110 : TESTED A T [facility] 6720 (BEAKER) (test code = ANIL Brown [facility], 1538) [address]: Aircraft Worker/Techni daniel ID = [id number] for Step toe, Mary POCT-GLUCOSE [id number] 12:02:52 Test Item Value Reference Range Interpretation Comments POC-GLUCOSE METER 123 mg/dL 70-110 H : TESTED A T [facility] (BEAKER) (test code [facility] [address], = 1538) [facility] 77 478: Aircraft Worker/Techni daniel ID = [id number] for Ali, Rosa RAD, ABDOMEN/KUB 1 VIEW [id number] 11:20:00Reason for exam:->Enteric tube placement verification [facility] 1965 Sex: FFINAL [...] MDReport Verified Date/Time: 08/19/2021 11:20:09 Reading Location: [facility] Radiology Reading Room RAD, CHEST, 1 VIEW, NON [id number] 11:20:00Reason for exam:[facility] 1965 Sex: FFINAL [...] stomach. IMPRESSION: Chest:1.Lines and tubes as above. Specifically, a left nontunneled central venous catheter is noted with tip overlying the right subclavian vein. Recommend nonemergent repositioning. Abdomen:1.Limited field of view, excluding the middle and lower abdomen. An enteric tube is noted in the stomach. Signed: Carmen Dacosta MDReport Verified Date/Time: 08/19/2021 11:20:09 Reading Location: [facility] Radiology Reading Room SARS-CoV2/RT-PCR (Asymptomatic ONLY)2021-08-19 10:42:27 Test Item Value Reference Interpretation Comments Range SARS-COV2/RT-PCR Negative Negative The SARS-Co V-2 (test code = target nucleic 59356-1) acids are not detected in thi s [...] revoked sooner. Fact Sheet for Healthcare Providers: https://www.[employer].com/Documents/Xp ert%20Xpress%20SAR S%20CoV-2/Fact%20S heets/302-3802%20S ARS-COV-2%20HEALTH CARE%20PROVIDERS%2 0FACT%20SHEET.pdf Fact Sheet for Healthcare Patients: https://www.[employer].com/Documents/Xp ert%20Xpress%20SAR S%20CoV-2/Fact%20S heets/302-3801%20S ARS-COV-2%20PATIEN T%20FACT%20SHEET.p df Lab Interpretation Normal (test code = 82147-1) [facility] 10:42:27 Test Item Value Reference Interpretation Comments Range SARS-COV2/RT-PCR Negative Negative The SARS-Co V-2 (test code = target nucleic 45331-0) acids are not detected in thi s [...] om SARS-CoV-2 in a nasopharyngeal swab specimen colle sally from individual s suspected of COVID-19 [...] revoked sooner. Fact Sheet for Healthcare Providers: https://www.[employer].com/Documents/Xp ert%20Xpress%20SAR S%20CoV-2/Fact%20S heets/302-3802%20S ARS-COV-2%20HEALTH CARE%20PROVIDERS%2 0FACT%20SHEET.pdf Fact Sheet for Healthcare Patients: https://www.G[employer].com/Documents/Xp ert%20Xpress%20SAR S%20CoV-2/Fact%20S heets/302-3801%20S ARS-COV-2%20PATIEN T%20FACT%20SHEET.p df Lab Interpretation Normal (test code = 39444-8) [facility]2021-08-19 10:42:27 Test Item Value Reference Range Interpretation Comments SARS-COV2/RT-PCR Negative Negative The SARS-Co V-2 target (test code = nucleic acids a re not 9133155) detected in thi s specimen. Negative result [...] revoked sooner. Fact Sheet for Healthcare Providers: https://wwwInSync Software m/Documents/Xpert%20Xpress%20SARS%20CoV-2/Fact%20Sheets/302-3802%43ZFLW-VFY-2%20 HEALTHCARE%20PROVIDERS%20FACT%20SHEET.pdf Fact Sheet for Healthcare Patients: https://www.[employer]/Documents/Xpert%20Xp ress%20SARS%20CoV-2/Fact%20Sheets/302-3801%47JCQW-BAY-3%20PATIENT%20FACT%20SHEET .pdfBLOOD GAS, [id number] 09:40:43 Test Item Value Reference Range Interpretation [...] (BEAKER) (test code = 1819) 100.0 POCT-GLUCOSE [id number] 08:21:17 Test Item Value Reference Range Interpretation Comments POC-GLUCOSE METER 125 mg/dL 70-110 H : TESTED A T [facility] (BEAKER) (test code [address], = 1538) [place] [address]: Aircraft Worker/Techni daniel ID = [id number] for Ali, Rosa POCT-GLUCOSE [id number] 06:20:10 Test Item Value Reference Range Interpretation Comments POC-GLUCOSE METER 102 mg/dL 70-110 : TESTED A T [facility] (BEAKER) (test code [address], = 1538) [place] [address]: Aircraft Worker/Techni daniel ID = [id number] for Garc ia, Mi BASIC METABOLIC [id number] 04:52:02 Test Item Value Reference Range Interpretation [...] S NOT APPLICABLE FOR DIALYSIS PATIEN TS. Aircraft Worker ID - [id number] ID - [id number] ID - hbkk23Rmcujbse ID - kefr00Opoyvbua ID - urve08Rearmqsg ID - qrfi93Yfuutrzf ID - kddo62Axeiqxfw ID - lrxc48Nyrebhgh ID - suxv20Znosakys ID - cqpy41Qnpeoczz ID - eygl34Tytdaifx ID - prfs65Dwsthpsb ID - xcnl75BWV W/PLT COUNT & AUTO [id number] 04:27:22 Test Item Value Reference Range Interpretation [...] PERCENT (BEAKER) (test code = 2801) POCT-GLUCOSE [id number] 21:18:21 Test Item Value Reference Range Interpretation Comments POC-GLUCOSE METER 71 mg/dL 70-110 : TESTED A T [facility] (BEAKER) (test code = [address], 1538) [facility] 77 478: Aircraft Worker/Techni daniel ID = [id number] for Eduardo joy Maggie [id number] 18:25:36 Test Item Value Reference Range Interpretation Comments MAGNESIUM (BEAKER) (test code = 1.8 mg/dL 1.5-3.0 627) Aircraft Worker ID - [id number], BRAIN, WITHOUT [id number] 16:05:00Unlisted Reason for Exam - Click Yes and Enter Reason Below->No [facility] : 1965 Sex: FFINAL [...] Verified Date/Time: 08/18/2021 16:05:59 MR, BRAIN, WITHOUT [id number] 15:48:00Unlisted Reason for Exam - Click Yes and Enter Reason Below->NoDoes the patient have an implantedelectronic device?->No [facility] : 1965 Sex: FFINAL REPORT MR, BRAIN, [...] no acute intracranial findings. Signed: Ruth Benítez MDReport Verified Date/Time: 08/18/2021 15:48:54 POCT-GLUCOSE [id number] 10:47:44 Test Item Value Reference Range Interpretation Comments POC-GLUCOSE METER 87 mg/dL 70-110 : TESTED A T [facility] (BEAKER) (test code = [address], 1538) [facility] 77 478: Aircraft Worker/Techni daniel ID = [id number] for Yanni Brooks COMPREHENSIVE METABOLIC [id number] 10:20:59 Test Item Value Reference Range Interpretation [...] S NOT APPLICABLE FOR DIALYSIS PATIEN TS. Aircraft Worker ID - DSENSONOperator ID - DSENSONOperator ID - DSENSONOperator ID - DSENSONOperator ID - DSENSONOperator ID - DSENSONOperator ID - DSENSONOperator ID - DSENSONOperator ID - DSENSONOperator ID - DSENSONOperator ID - DSENSONOperator ID - DSENSONOperator ID - DSENSONOperator ID - DSENSONOperatorID - DSENSONOperator ID - DSENSONOperator ID - DSENSONOperator ID - DSENSONOperator ID - DSENSONCBC W/PLT COUNT & AUTO [id number] 10:04:14 Test Item Value Reference Range Interpretation [...] % 0-0 PERCENT (BEAKER) (test code = 9071) POCT-GLUCOSE [id number] 09:00:00 Test Item Value Reference Range Interpretation Comments POC-GLUCOSE METER 101 mg/dL 70-110 : TESTED A T [facility] (BEAKER) (test code [address], = 1538) [place] [address]: Aircraft Worker/Techni daniel ID = [id number] for Tisha Tobias POCT-GLUCOSE [id number] 17:42:08 Test Item Value Reference Range Interpretation Comments POC-GLUCOSE METER 81 mg/dL 70-110 : TESTED A T [facility] (BEAKER) (test code = [address], 1538) [place] [address]: Aircraft Worker/Techni daniel ID = [id number] for Yanni Brooks POCT-GLUCOSE [id number] 12:45:03 Test Item Value Reference Range Interpretation Comments POC-GLUCOSE METER 79 mg/dL 70-110 : TESTED A T [facility] (BEAKER) (test code = [address], 1538) [place] [address]: Aircraft Worker/Techni daniel ID = [id number] for Yanni Brooks POCT-GLUCOSE [id number] 10:51:04 Test Item Value Reference Range Interpretation Comments POC-GLUCOSE METER 63 mg/dL 70-110 L : TESTED A T [facility] (BEAKER) (test code = [address], 1538) [place] [address]: Aircraft Worker/Techni daniel ID = [id number] for DavidAndi trevizo COMPREHENSIVE METABOLIC [id number] 06:32:44 Test Item Value Reference Range Interpretation [...] S NOT APPLICABLE FOR DIALYSIS PATIEN TS. Aircraft Worker ID - [id number] ID - walw25Fmhuyiew ID - olto47Cvqgxilm ID - qkai32Itjgvejc ID - vunt96Qjfvscye ID - dhmb30Ytcbtynv ID - bydb81Zgrqshlx ID - gxms93Ourwmnra ID - firg32Penlimcc ID - drdh23Gzeiudid ID - idxu62Vfmmgnic ID - utbe63Euuztbfd ID - dkhw41Fufkrdpg ID - cujn73Elcmsqfw ID - fjvt00Ebxcblxz ID - [id number] 06:29:37 Test Item Value Reference Range Interpretation Comments MAGNESIUM (BEAKER) 1.8 mg/dL 1.5-3.0 Specimen slightly (test code = 627) hemolyzed Aircraft Worker ID - [id number] ID - ijup83Wsahoxgz ID - sxtj12Cuwcopqx ID - [id number] CBC W/PLT COUNT & AUTO [id number] 05:55:19 Test Item Value Reference Range Interpretation [...] (test code = 2801) ANG, TUNNELED CATHETER [id number] 10:38:00Reason for Central Line/PICC?->Need for hemodialysis accessReason for exam:->esrd [facility] : 1965 Sex: FFINAL [...] dose (Ka,r): 3 mGy Signed: Junito Mayberry MDReport Verified Date/Time: 08/16/2021 10:38:20 Reading Location: [facility] Radiology Reading Room REHENSIVE METABOLIC [id number] 05:55:05 Test Item Value Reference Range Interpretation [...] S NOT APPLICABLE FOR DIALYSIS PATIEN TS. Aircraft Worker ID - LITOOperator ID - LITOOperator ID - LITOOperator ID - LITOOperator ID - LITOOperator ID - LITOOperator ID - LITOOperator ID - LITOOperator ID - LITOOperator ID - LITOOperator ID - LITOOperator ID - LITOOperator ID - LITOOperator ID - LITOOperator ID - LITOOperator ID - [id number] 05:48:01 Test Item Value Reference Range Interpretation Comments MAGNESIUM (BEAKER) (test code = 1.6 mg/dL 1.5-3.0 627) Aircraft Worker ID - LITOOperator ID - LITOOperator ID - LITOOperator ID - LITOCBC W/PLT COUNT & AUTO [id number] 05:28:26 Test Item Value Reference Range Interpretation [...] = 2801) GI Pathogen Profile by PCR-ID [id number] 18:38:44 Test Item Value Reference Range Interpretation Comments CAMPYLOBACTER PCR (test Not detected Not detected code = 64819-0) PLESIOMONAS SHIGELLOIDES Not detected Not detected (PCR) (test code = 16445-0) SALMONELLA (PCR) (test Not detected Not detected code = 71068-1) YERSINIA ENTEROCOLITICA Not detected Not detected (PCR) (test code = 16376-6) VIBRIO CHOLERAE (PCR) Not detected Not detected (test code = 24244-3) ENTEROAGGREGATIVE E. Not detected Not detected COLI (EAEC) BY PCR (test code = 73528-9) ENTEROPATHOGENIC E. COLI Not detected Not detected (EPEC) BY PCR (test code = 01660-0) ENTEROTOXIGENIC E. COLI Not detected Not detected (ETEC) LT/ST BY PCR (test code = 24792-8) SHIGA-LIKE Not detected Not detected TOXIN-PRODUCING E. COLI (STEC) STX1/STX2 (test code = 75375-1) E. COLI O157 (PCR) (test code = 53585-3) SHIGELLA/ENTEROINVASIVE Not detected Not detected E. COLI (EIEC) BY PCR (test code = 88784-7) CRYPTOSPORIDIUM (PCR) Not detected Not detected (test code = 39311-4) CYCLOSPORA CAYETANENSIS Not detected Not detected (PCR) (test code = 06325-9) ENTAMOEBA HISTOLYTICA Not detected Not detected (PCR) (test code = 19500-2) GIARDIA LAMBLIA (PCR) Not detected Not detected (test code = 74634-3) ADENOVIRUS F 40/41 (PCR) Not detected Not detected (test code = 77418-8) ASTROVIRUS (PCR) (test Not detected Not detected code = 27117-2) NOROVIRUS GI/GII (PCR) Not detected Not detected (test code = 74258-6) ROTAVIRUS A (PCR) (test Not detected Not detected code = 27237-2) SAPOVIRUS (I, II, IV, V) Not detected Not detected BY PCR (test code = 39087-1) VIBRIO Not detected Not detected (PARAHAEMOLYTICUS, VULNIFICUS) (test code = 46217-9) CECELIA (test code = CECELIA) Other viruses, parasites and bacteria not targeted by this PCR panel cannot be excluded; therefore clinical correlation and follow up of serology, culture results, and other molecular studies is required. The results are not intended to be used as the sole means for clinical diagnosis or patient management decisions. This sample was tested at the [facility] using the [employer]pr[employer] Gastrointestinal Panel. It is FDA cleared and has been verified and approved by the [facility] for clinical use. This laboratory is CLIA-certified and [employer] (CAP)-accredited to perform high complexity testing. [facility] [id number] 18:38:44 Test Item Value Reference Range Interpretation Comments CAMPYLOBACTER PCR (test Not detected Not detected code = 64133-9) PLESIOMONAS SHIGELLOIDES Not detected Not detected (PCR) (test code = 57362-7) SALMONELLA (PCR) (test Not detected Not detected code = 81833-3) YERSINIA ENTEROCOLITICA Not detected Not detected (PCR) (test code = 77579-8) VIBRIO CHOLERAE (PCR) Not detected Not detected (test code = 90606-7) ENTEROAGGREGATIVE E. Not detected Not detected COLI (EAEC) BY PCR (test code = 91933-7) ENTEROPATHOGENIC E. COLI Not detected Not detected (EPEC) BY PCR (test code = 75061-1) ENTEROTOXIGENIC E. COLI Not detected Not detected (ETEC) LT/ST BY PCR (test code = 15627-8) SHIGA-LIKE Not detected Not detected TOXIN-PRODUCING E. COLI (STEC) STX1/STX2 (test code = 56719-6) E. COLI O157 (PCR) (test code = 86102-3) SHIGELLA/ENTEROINVASIVE Not detected Not detected E. COLI (EIEC) BY PCR (test code = 68059-7) CRYPTOSPORIDIUM (PCR) Not detected Not detected (test code = 59372-1) CYCLOSPORA CAYETANENSIS Not detected Not detected (PCR) (test code = 98917-4) ENTAMOEBA HISTOLYTICA Not detected Not detected (PCR) (test code = 11272-0) GIARDIA LAMBLIA (PCR) Not detected Not detected (test code = 91261-1) ADENOVIRUS F 40/41 (PCR) Not detected Not detected (test code = 73275-9) ASTROVIRUS (PCR) (test Not detected Not detected code = 45094-0) NOROVIRUS GI/GII (PCR) Not detected Not detected (test code = 72656-0) ROTAVIRUS A (PCR) (test Not detected Not detected code = 42736-9) SAPOVIRUS (I, II, IV, V) Not detected Not detected BY PCR (test code = 13917-4) VIBRIO Not detected Not detected (PARAHAEMOLYTICUS, VULNIFICUS) (test code = 24316-1) CECELIA (test code = CECELIA) Other viruses, parasites and bacteria not targeted by this PCR panel cannot be excluded; therefore clinical correlation and follow up of serology, culture results, and other molecular studies is required. The results are not intended to be used as the sole means for clinical diagnosis or patient management decisions. This sample was tested at the [facility] Molecular Diagnostics Laboratory using the HyprKey Gastrointestinal Panel. It is FDA cleared and has been verified and approved by the [facility]ostics [facility] for clinical use. This laboratory is CLIA-certified and [employer] (CAP)-accredited to perform high complexity testing. [facility] [id number] 18:38:44 Test Item Value Reference Range Interpretation Comments CAMPYLOBACTER (PCR) Not detected Not detected (test code = 62648-0) PLESIOMONAS SHIGELLOIDES Not detected Not detected (PCR) (test code = 90534-5) SALMONELLA (PCR) (test Not detected Not detected code = 03320-0) YERSINIA ENTEROCOLITICA Not detected Not detected (PCR) (test code = 34323-3) VIBRIO CHOLERAE (PCR) Not detected Not detected (test code = 29299-7) ENTEROAGGREGATIVE E. Not detected Not detected COLI (EAEC) BY PCR (test code = 43910-3) ENTEROPATHOGENIC E. COLI Not detected Not detected (EPEC) BY PCR (test code = 03997-6) ENTEROTOXIGENIC E. COLI Not detected Not detected (ETEC) LT/ST BY PCR (test code = 27435-7) SHIGA-LIKE Not detected Not detected TOXIN-PRODUCING E. COLI (STEC) STX1/STX2 (test code = 89784-3) E. COLI O157 (PCR) (test code = 94941-2) SHIGELLA/ENTEROINVASIVE Not detected Not detected E. COLI (EIEC) BY PCR (test code = 23621-9) CRYPTOSPORIDIUM (PCR) Not detected Not detected (test code = 26269-1) CYCLOSPORA CAYETANENSIS Not detected Not detected (PCR) (test code = 42022-5) ENTAMOEBA HISTOLYTICA Not detected Not detected (PCR) (test code = 85776-3) GIARDIA LAMBLIA (PCR) Not detected Not detected (test code = 88340-4) ADENOVIRUS F 40/41 (PCR) Not detected Not detected (test code = 04061-8) ASTROVIRUS (PCR) (test Not detected Not detected code = 38555-3) NOROVIRUS GI/GII (PCR) Not detected Not detected (test code = 41969-9) ROTAVIRUS A (PCR) (test Not detected Not detected code = 09686-4) SAPOVIRUS (I, II, IV, V) Not detected Not detected BY PCR (test code = 09332-5) VIBRIO Not detected Not detected (PARAHAEMOLYTICUS, VULNIFICUS) (test code = 99072-2) CECELIA (test code = CECELIA) Other viruses, parasites and bacteria not targeted by this PCR panel cannot be excluded; therefore clinical correlation and follow up of serology, culture results, and other molecular studies is required. The results are not intended to be used as the sole means for clinical diagnosis or patient management decisions. This sample was tested at the [facility] Molecular Diagnostics Laboratory using the HyprKey Gastrointestinal Panel. It is FDA cleared and has been verified and approved by the [facility]ostics [facility] for clinical use. This laboratory is CLIA-certified and [employer] (CAP)-accredited to perform high complexity testing. [facility] [id number] 18:38:44 Test Item Value Reference Range Interpretation Comments CAMPYLOBACTER (PCR) Not detected Not detected (test code = 88952-5) PLESIOMONAS SHIGELLOIDES Not detected Not detected (PCR) (test code = 08523-3) SALMONELLA (PCR) (test Not detected Not detected code = 91044-4) YERSINIA ENTEROCOLITICA Not detected Not detected (PCR) (test code = 42368-0) VIBRIO CHOLERAE (PCR) Not detected Not detected (test code = 83448-3) ENTEROAGGREGATIVE E. Not detected Not detected COLI (EAEC) BY PCR (test code = 44196-5) ENTEROPATHOGENIC E. COLI Not detected Not detected (EPEC) BY PCR (test code = 76262-2) ENTEROTOXIGENIC E. COLI Not detected Not detected (ETEC) LT/ST BY PCR (test code = 44039-3) SHIGA-LIKE Not detected Not detected TOXIN-PRODUCING E. COLI (STEC) STX1/STX2 (test code = 32011-0) E. COLI O157 (PCR) (test code = 64675-8) SHIGELLA/ENTEROINVASIVE Not detected Not detected E. COLI (EIEC) BY PCR (test code = 37138-8) CRYPTOSPORIDIUM (PCR) Not detected Not detected (test code = 45419-0) CYCLOSPORA CAYETANENSIS Not detected Not detected (PCR) (test code = 10347-1) ENTAMOEBA HISTOLYTICA Not detected Not detected (PCR) (test code = 53869-7) GIARDIA LAMBLIA (PCR) Not detected Not detected (test code = 45327-9) ADENOVIRUS F 40/41 (PCR) Not detected Not detected (test code = 79875-4) ASTROVIRUS (PCR) (test Not detected Not detected code = 05298-3) NOROVIRUS GI/GII (PCR) Not detected Not detected (test code = 55457-9) ROTAVIRUS A (PCR) (test Not detected Not detected code = 69117-0) SAPOVIRUS (I, II, IV, V) Not detected Not detected BY PCR (test code = 19060-1) VIBRIO Not detected Not detected (PARAHAEMOLYTICUS, VULNIFICUS) (test code = 87975-0) CECELIA (test code = CECELIA) Other viruses, parasites and bacteria not targeted by this PCR panel cannot be excluded; therefore clinical correlation and follow up of serology, culture results, and other molecular studies is required. The results are not intended to be used as the sole means for clinical diagnosis or patient management decisions. This sample was tested at the [facility] Molecular Diagnostics Laboratory using the Hypr[employer] Gastrointestinal Panel. It is FDA cleared and has been verified and approved by the [facility] Diagnostics [facility] for clinical use. This laboratory is CLIA-certified and [employer] (CAP)-accredited to perform high complexity testing. [facility] [id number] 18:38:44 Test Item Value Reference Range Interpretation Comments CAMPYLOBACTER PCR (test Not detected Not detected code = 37475-4) PLESIOMONAS SHIGELLOIDES Not detected Not detected (PCR) (test code = 70960-0) SALMONELLA (PCR) (test Not detected Not detected code = 92077-2) YERSINIA ENTEROCOLITICA Not detected Not detected (PCR) (test code = 23943-7) VIBRIO CHOLERAE (PCR) Not detected Not detected (test code = 72311-1) ENTEROAGGREGATIVE E. Not detected Not detected COLI (EAEC) BY PCR (test code = 32838-9) ENTEROPATHOGENIC E. COLI Not detected Not detected (EPEC) BY PCR (test code = 91748-4) ENTEROTOXIGENIC E. COLI Not detected Not detected (ETEC) LT/ST BY PCR (test code = 50963-0) SHIGA-LIKE Not detected Not detected TOXIN-PRODUCING E. COLI (STEC) STX1/STX2 (test code = 08548-6) E. COLI O157 (PCR) (test code = 65644-6) SHIGELLA/ENTEROINVASIVE Not detected Not detected E. COLI (EIEC) BY PCR (test code = 85833-5) CRYPTOSPORIDIUM (PCR) Not detected Not detected (test code = 82340-8) CYCLOSPORA CAYETANENSIS Not detected Not detected (PCR) (test code = 18015-6) ENTAMOEBA HISTOLYTICA Not detected Not detected (PCR) (test code = 25266-5) GIARDIA LAMBLIA (PCR) Not detected Not detected (test code = 58643-9) ADENOVIRUS F 40/41 (PCR) Not detected Not detected (test code = 63136-3) ASTROVIRUS (PCR) (test Not detected Not detected code = 48823-7) NOROVIRUS GI/GII (PCR) Not detected Not detected (test code = 10294-7) ROTAVIRUS A (PCR) (test Not detected Not detected code = 67102-6) SAPOVIRUS (I, II, IV, V) Not detected Not detected BY PCR (test code = 35654-5) VIBRIO Not detected Not detected (PARAHAEMOLYTICUS, VULNIFICUS) (test code = 39405-9) CECELIA (test code = CECELIA) Other viruses, parasites and bacteria not targeted by this PCR panel cannot be excluded; therefore clinical correlation and follow up of serology, culture results, and other molecular studies is required. The results are not intended to be used as the sole means for clinical diagnosis or patient management decisions. This sample was tested at the [facility] Molecular Diagnostics Laboratory using the [employer] Gastrointestinal Panel. It is FDA cleared and has been verified and approved by the [facility] Molecular Diagnostics Laboratory for clinical use. This laboratory is CLIA-certified and [employer] (CAP)-accredited to perform high complexity testing. [facility] BY [id number] 18:38:44 Test Item Value Reference Range Interpretation Comments CAMPYLOBACTER (PCR) (test code = Not detected Not detected 20150928) PLESIOMONAS SHIGELLOIDES (PCR) Not detected Not detected (test code = 20151002) SALMONELLA (PCR) (test code = Not detected Not detected ) YERSINIA ENTEROCOLITICA (PCR) Not detected Not detected (test code = 7001593) VIBRIO CHOLERAE (PCR) (test code Not detected Not detected = 20151026) ENTEROAGGREGATIVE E. COLI (EAEC) Not detected Not detected BY PCR (test code = 2879506) ENTEROPATHOGENIC E. COLI (EPEC) Not detected Not detected BY PCR (test code = 4420758) ENTEROTOXIGENIC E. COLI (ETEC) Not detected Not detected LT/ST BY PCR (test code = 1236467) SHIGA-LIKE TOXIN-PRODUCING E. Not detected Not detected COLI (STEC) STX1/STX2 (test code = 2181375) E. COLI O157 (PCR) (test code = 2682239) SHIGELLA/ENTEROINVASIVE E. COLI Not detected Not detected (EIEC) BY PCR (test code = 2675418) CRYPTOSPORIDIUM (PCR) (test code Not detected Not detected = 20151102) CYCLOSPORA CAYETANENSIS (PCR) Not detected Not detected (test code = 9540943) ENTAMOEBA HISTOLYTICA (PCR) Not detected Not detected (test code = 4507188) GIARDIA LAMBLIA (PCR) (test code Not detected [...] Not detected Not detected (test code = 20151201) VIBRIO (PARAHAEMOLYTICUS, Not detected Not detected VULNIFICUS) (test code = 8850144) Other viruses, parasites and bacteria not targeted by this PCR panel cannot be excluded; therefore clinical correlation and follow up of serology, culture results, and other molecular studies is required. The results are not intended to be used as the sole means for clinical diagnosis or patient management decisions. This sample was tested at the [facility] Molecular Diagnostics Laboratory using the HyprKey Gastrointestinal Panel. It is FDA cleared and has been verified and approved by the [facility] for clinical use. This laboratory is CLIA-certified and College ofAmerican Pathologists (CAP)-accredited to perform high complexity testing.HEPATITIS B SURFACE [id number] 11:08:29 Test Item Value Reference Range Interpretation Comments HEPATITIS B SURFACE ANTIBODY < mIU/mL <8.0 (BEAKER) (test code = 647) Aircraft Worker ID - BANDAR MHEPATITIS B SURFACE [id number] 04:25:17 Test Item Value Reference Range Interpretation Comments HEPATITIS B SURFACE ANTIGEN (2) Nonreactive Nonreactive (BEAKER) (test code = 2585) Aircraft Worker ID - [id number] METABOLIC [id number] 04:16:49 Test Item Value Reference Range Interpretation [...] S NOT APPLICABLE FOR DIALYSIS PATIEN TS. Aircraft Worker ID - [id number] ID - [id number] ID - UXQD76Uzoazeku ID - LBWJ43Ehugforv ID - RTXQ53Qhpgffrq ID - ANFH87Jybbcwfe ID - XJYP58Yunduzqx ID - XHZD31Yaseqlxc ID - LAPZ79Rhthgsgn ID - PNVW55Xwtgimhh ID - LZMF69Qzvnhqiz ID - GDHG58Qdvzbafn ID - WSXB81Shqwcfop ID - IXJL86Comlvsmz ID - PQYJ21Rqcjkuqg ID - [id number] 04:09:54 Test Item Value Reference Range Interpretation Comments MAGNESIUM (BEAKER) 1.9 mg/dL 1.5-3.0 Specimen moderately (test code = 627) hemolyzed Aircraft Worker ID - [id number] ID - [id number] ID - OYYN68Ghjvuwxe ID - [id number] CALCIUM, [id number] 03:53:39 Test Item Value Reference Range Interpretation Comments CALCIUM IONIZED (BEAKER) (test 0.86 mmol/L 1.12-1.27 L code = 698) PH, BLOOD (BEAKER) (test code = 7.54 1810) CBC W/PLT COUNT & AUTO [id number] 03:53:15 Test Item Value Reference Range Interpretation [...] (BEAKER) (test code = 2801) Prepare Leuko-Red [id number] 23:55:00 Test Item Value Reference Range Interpretation Comments CROSSMATCH (test code = 2264) COMPATIBLE Unit ABO (test code = O Pos 3761488) UNIT NUMBER (test code = [id number] 934-0) Status (test code = 0193050) TX_TIMEINCHART Blood Bank Product (test code RED BLOOD CELLS = 2263) PRODUCT CODE (test code = V6632L29 933-2) [facility] METABOLIC [id number] 17:15:10 Test Item Value Reference Range Interpretation [...] S NOT APPLICABLE FOR DIALYSIS PATIEN TS. Aircraft Worker ID - ONYINYEOperator ID - ONYINYEOperator ID - ONYINYEOperator ID - ONYINYEOperator ID - ONYINYEOperator ID - ONYINYEOperator ID - ONYINYEOperator ID - ONYINYEOperator ID - ONYINYEOperator ID - ONYINYEOperator ID - ONYINYEOperator ID - ONYINYEOperator ID - ONYINYECBC W/PLT COUNT & AUTO [id number] 17:03:51 Test Item Value Reference Range Interpretation [...] PERCENT (BEAKER) (test code = 2801) CALCIUM, [id number] 16:56:18 Test Item Value Reference Range Interpretation Comments CALCIUM IONIZED (BEAKER) (test 0.95 mmol/L 1.12-1.27 L code = 698) PH, BLOOD (BEAKER) (test code = 7.52 1810) Clostridium difficile GDH [id number] 12:56:45 Test Item Value Reference Range Interpretation Comments C. Difficle Toxin Negative Negative (test code = 5581362422) C. Difficile GDH Positive Negative A C. difficil e Antigen (test code = present but toxin 0985102429) not detected. Indicates colonization wi th non-toxigenic [...] of kit performance was done by the [facility] Microbiology Lab prior to clinical use. Lab Interpretation Abnormal (test code = 81440-8) [facility] [id number] 12:56:45 Test Item Value Reference Range Interpretation Comments C. Difficle Toxin Negative Negative (test code = 4794793143) C. Difficile GDH Positive Negative A C. difficil e Antigen (test code = present but toxin 1938550913) not detected. Indicates colonization wi th non-toxigenic [...] of kit performance was done by the [facility] Microbiology Lab prior to clinical use. Lab Interpretation Abnormal (test code = 92611-0) [facility] [id number] 12:56:45 Test Item Value Reference Range Interpretation Comments C. Difficle Toxin Negative Negative (test code = 8205701006) C. Difficile GDH Positive Negative A C. difficil e Antigen (test code = present but toxin 6904577377) not detected. Indicates colonization wi th non-toxigenic [...] of kit performance was done by the [facility] Microbiology Lab prior to clinical use. Lab Interpretation Abnormal (test code = 37583-5) [facility] [id number] 12:56:45 Test Item Value Reference Range Interpretation Comments C. Difficle Toxin Negative Negative (test code = 6320826359) C. Difficile GDH Positive Negative A C. difficil e Antigen (test code = present but toxin 0758786089) not detected. Indicates colonization wi th non-toxigenic [...] of kit performance was done by the [facility] Microbiology Lab prior to clinical use. Lab Interpretation Abnormal (test code = 76841-8) [facility] [id number] 12:56:45 Test Item Value Reference Range Interpretation Comments C. Difficle Toxin Negative Negative (test code = 9563656154) C. Difficile GDH Positive Negative A C. difficil e Antigen (test code = present but toxin 7158551967) not detected. Indicates colonization wi th non-toxigenic [...] of kit performance was done by the [facility] Microbiology Lab prior to clinical use. Lab Interpretation Abnormal (test code = 21398-2) [facility]IC[facility] [id number] 12:56:45 Test Item Value Reference Range Interpretation [...] of kit performance was done by the [facility] MicrobiologyLab prior to clinical use.[id number] 11:25:57 Test Item Value Reference Range Interpretation Comments PHOSPHORUS (BEAKER) 2.4 mg/dL 2.5-4.5 L Specimen moderately (test code = 604) hemolyzed Aircraft Worker ID - LITOOperator ID - LITOOperator ID - LITOOperator ID - FREEDOM COMPREHENSIVE METABOLIC [id number] 06:12:13 Test Item Value Reference Range Interpretation [...] S NOT APPLICABLE FOR DIALYSIS PATIEN TS. Aircraft Worker ID - ADMINOperator ID - ADMINOperator ID - ADMINOperator ID - ADMINOperator ID - ADMINOperator ID - ADMINOperator ID - ADMINOperator ID - ADMINOperator ID - ADMINOperator ID - ADMINOperator ID- ADMINOperator ID - ADMINOperator ID - ADMINOperator ID - ADMINOperator ID - ADMINOperator ID - ADMI [id number] 06:02:00 Test Item Value Reference Range Interpretation Comments MAGNESIUM (BEAKER) 1.8 mg/dL 1.5-3.0 Specimen moderately (test code = 627) hemolyzed Aircraft Worker ID - ADMINOperator ID - ADMINOperator ID - ADMINOperator ID - ADMINCBC W/PLT COUNT & AUTO [id number] 05:41:57 Test Item Value Reference Range Interpretation [...] (BEAKER) (test code = 2801) BASIC METABOLIC [id number] 20:07:52 Test Item Value Reference Range Interpretation [...] S NOT APPLICABLE FOR DIALYSIS PATIEN TS. Aircraft Worker ID - [id number] ID - [id number] ID - [id number] ID - [id number] ID - [id number] ID - [id number] ID - [id number] ID - [id number] ID - [id number] ID - [id number] ID - [id number] ID - [id number] ID - [id number] Echo W/Doppler(CW/PW/Color)2021-08-12 11:40:21Ejection FractionSLEH ECHO [facility] Echo W/Doppler(CW/PW/Color)2021-08-12 11:40:21Ejection FractionSLEH ECHO [facility]ARTLAB [facility] Echo W/Doppler(CW/PW/Color) 2021-08-12 11:40:21Ejection FractionSLEH ECHO [facility] Echo W/Doppler(CW/PW/Color)2021-08-12 11:40:21Ejection FractionSLE [facility] Echo W/Doppler(CW/PW/Color)2021-08-12 11:40:21Ejection FractionSLE [facility] 06:15:26 Test Item Value Reference Range Interpretation Comments FERRITIN (BEAKER) (test code = 1071.10 ng/mL 10.00-291.00 H 361) Aircraft Worker ID - [id number] METABOLIC [id number] 04:03:51 Test Item Value Reference Range Interpretation [...] S NOT APPLICABLE FOR DIALYSIS PATIEN TS. Aircraft Worker ID - [id number] ID - [id number] ID - [id number] ID - [id number] ID - [id number] ID - [id number] ID - [id number] ID - [id number] ID - [id number] ID - [id number] ID - [id number] ID - [id number] ID - [id number] ID - [id number] ID - [id number] ID - [id number] GWXLCEBLN3533-77-30 03:37:52 Test Item Value Reference Range Interpretation Comments MAGNESIUM (BEAKER) (test code = 1.5 mg/dL 1.5-3.0 627) Aircraft Worker ID - [id number] ID - [id number] ID - [id number] ID - [id number] W/PLT COUNT & AUTO [id number] 03:23:47 Test Item Value Reference Range Interpretation [...] 0-0 PERCENT (BEAKER) (test code = 2801) [id number] 20:33:51 Test Item Value Reference Range Interpretation Comments MAGNESIUM (BEAKER) 1.6 mg/dL 1.5-3.0 Specimen slightly (test code = 627) hemolyzed Aircraft Worker ID - [id number] ID - [id number] ID - [id number] ID - [id number] METABOLIC [id number] 18:51:24 Test Item Value Reference Range Interpretation [...] S NOT APPLICABLE FOR DIALYSIS PATIEN TS. Aircraft Worker ID - [id number] ID - [id number] ID - [id number] ID - [id number] ID - [id number] ID - [id number] ID - [id number] ID - [id number] ID - [id number] ID - [id number] ID - [id number] ID - [id number] ID - [id number], TIBC, % SAT. (WITHOUT FERRITIN)2021-08-11 12:03:57 Test Item Value Reference Range Interpretation Comments IRON (BEAKER) (test code = 547) 68.0 ug/dL 45.0-170.0 TOTAL IRON BINDING CAPACITY 66 ug/dL 250-550 L (BEAKER) (test code = 769) IRON % SATURATION (2) (BEAKER) 103 % 20-55 H (test code = 2590) Aircraft Worker ID - [id number] ID - [id number] 11:00:01 Test Item Value Reference Range Interpretation Comments MAGNESIUM (BEAKER) 1.3 mg/dL 1.5-3.0 L Specimen slightly (test code = 627) hemolyzed Aircraft Worker ID - [id number] METABOLIC [id number] 06:41:44 Test Item Value Reference Range Interpretation [...] S NOT APPLICABLE FOR DIALYSIS PATIEN TS. Aircraft Worker ID - [id number] ID - [id number] ID - [id number] ID - [id number] ID - ydxgiurii401Hvuwqdsg ID - jrcyorkca116Rwgjqoir ID - thvafatdy732Obkkghgr ID - acsuyzyfz194Rjysvoat ID - hmrgrgcyr689Lioqjlpx ID - [id number] ID - umzaatcrg911Ykwwvpaz ID - hxntsuhhr188Byggvxoo ID - xzvwbavaz745Qntrkytj ID - npibgyihr306Kjemkhmq ID - xjkbjwkvz273Jmomlzui ID -cnpenysmm664IIIYV RRNXZ1318-70-37 06:41:32 Test Item Value Reference Range Interpretation [...] Borderline 130-159 High 160-189 Very High >=190 Aircraft Worker ID - ulhorpzwe275Xjxpillk ID - [id number] ID - bsykjcuyt120Jzribklz ID - crqqujhef510Cbwnhwas ID - [id number] ID - [id number] A1C 2021-08-11 06:37:45 Test Item Value Reference Range Interpretation Comments HEMOGLOBIN A1C (BEAKER) (test code = 4.7 % 4.3-6.1 368) Aircraft Worker ID - [id number] W/PLT COUNT & AUTO [id number] 06:08:50 Test Item Value Reference Range Interpretation [...] PERCENT (BEAKER) (test code = 2801) POCT-GLUCOSE [id number] 11:15:00 Test Item Value Reference Range Interpretation Comments POC-GLUCOSE METER 99 mg/dL 70-110 : TESTED A T [address] (BEAKER) (test code = [address]) [place] [address]: Aircraft Worker/Techni daniel ID = [id number] for Leatha alonzo, Raeann POCT-GLUCOSE [id number] 11:15:00 Test Item Value Reference Range Interpretation Comments POC-GLUCOSE METER 79 mg/dL 70-110 : Notified RN/MD: TESTED (BEAKER) (test code = [address]) [place] [address]: Aircraft Worker/Techni daniel ID = [id number] for Smita Campuzano POCT-GLUCOSE [id number] 11:15:00 Test Item Value Reference Range Interpretation Comments POC-GLUCOSE METER 106 mg/dL 70-110 : TESTED A T [address] (BEAKER) (test code [address], = [address]) [place] [address]: Aircraft Worker/Techni daniel ID = [id number] for Valentina Piña POCT-GLUCOSE [id number] 11:15:00 Test Item Value Reference Range Interpretation Comments POC-GLUCOSE METER 82 mg/dL 70-110 : TESTED A T [address] (BEAKER) (test code = [address], [address]) [place] [address]: Aircraft Worker/Techni daniel ID = [id number] for Leatha alonzo, Raeann POCT-GLUCOSE [id number] 11:15:00 Test Item Value Reference Range Interpretation Comments POC-GLUCOSE METER 88 mg/dL 70-110 : TESTED A T [address] (BEAKER) (test code = [address]) [place] [address]: Aircraft Worker/Techni daniel ID = [id number] for Terrieu alonzo, Raeann POCT-GLUCOSE [id number] 11:15:00 Test Item Value Reference Range Interpretation Comments POC-GLUCOSE METER 83 mg/dL 70-110 : Notified RN/MD: TESTED ([facility]) (test code = [address]) [place] [address]: Aircraft Worker/Techni daniel ID = [id number] for Maria Teresa Charlton POCT-GLUCOSE [id number] 11:15:00 Test Item Value Reference Range Interpretation Comments POC-GLUCOSE METER 110 mg/dL 70-110 : TESTED A T [address] (BEAKER) (test code [address], = [address]) [place] [address]: Aircraft Worker/Techni daniel ID = [id number] for Maria Teresa Charlton POCT-GLUCOSE [id number] 11:14:00 Test Item Value Reference Range Interpretation Comments POC-GLUCOSE METER 96 mg/dL 70-110 : TESTED A T [address] (BEAKER) (test code = [address]) [place] [address]: Aircraft Worker/Techni daniel ID = [id number] for Ali, Yaw POCT-GLUCOSE [id number] 11:14:00 Test Item Value Reference Range Interpretation Comments POC-GLUCOSE METER 97 mg/dL 70-110 : TESTED A T [address] (BEAKER) (test code = [address], [address]) [place] [address]: Aircraft Worker/Techni daniel ID = [id number] for Ali, Yaw POCT-GLUCOSE [id number] 11:14:00 Test Item Value Reference Range Interpretation Comments POC-GLUCOSE METER 99 mg/dL 70-110 : TESTED A T [address] (BEAKER) (test code = [address], [address]) [place] [address]: Aircraft Worker/Techni daniel ID = [id number] for Roc Petea POCT-GLUCOSE [id number] 11:14:00 Test Item Value Reference Range Interpretation Comments POC-GLUCOSE METER 91 mg/dL 70-110 : TESTED A T [address] (BEAKER) (test code = [address], [address]) [place] [address]: Aircraft Worker/Techni daniel ID = [id number] for Nwad iufu, Kim POCT-GLUCOSE [id number] 11:14:00 Test Item Value Reference Range Interpretation Comments POC-GLUCOSE METER 75 mg/dL 70-110 : TESTED A T [address] (BEAKER) (test code = [address], [address]) [place] [address]: Aircraft Worker/Techni daniel ID = [id number] for Estelle Serra SARS-COV2/RT-PCR ([facility])2020-08-10 16:15:00 Test Item Value Reference Range Interpretation Comments SARS-COV2/RT-PCR Negative Not Detected, Performanc e of the Xpert (test code = Negative, See Xpress [id number]) external report SARS-CoV-2/F poly/RSV test for linked [...] iological data, and other data available to e clinician evalu ating the patient. Invali [...] sooner.Fact She et for Healthcare Prov iders: https://www.[employer]/ Documents/Xpert %20Xpress %02WFLP-NsC-4-F poly-RSV/30 2-4508%20Rev.%2 0B%20HCP% 20Fact%20Sheet. pdfFact Sheet for Healt hcare Patients: https://www.[employer]/ Documents/Xpert %20Xpress %32UNFA-RxE-7-F poly-RSV/30 2-4507%20Rev.%2 0B%20Pati ent%20Fact%20Sh eet.pdf SARS-COV-2 SLSL Performed at:[facility] (test code = [facility] 0032217) [place], [place] [address]w h: [phone] RAD, CHEST, 1 VIEW, NON [id number] 15:49:00Reason for exam:->New HemodialysisShould this be performed at the bedside?->Yes [facility] 1965 Sex: FFINAL REPORT CHEST AP PORTABLE SEMIERECT COMPARISON STUDY: 10/30/2018 History provided: Dialysis Radiographically normal-appearing heart and lungs. Tunneled dialysis catheter fromright jugular approach with catheter tip at the cavoatrial junction. Signed: Junito Mayberryeport Verified Date/Time: 08/10/2020 15:49:39 Reading Location: [facility] Radiology Reading Room HEPATITIS B CORE ANTIBODY, [id number] 11:01:00 Test Item Value Reference Range Interpretation Comments HEPATITIS B CORE TOTAL ANTIBODY Nonreactive Nonreactive (BEAKER) (test code = 497) Aircraft Worker ID - BANDAR MCOMPREHENSIVE METABOLIC [id number] 05:59:00 Test Item Value Reference Range Interpretation [...] S NOT APPLICABLE FOR DIALYSIS PATIEN TS. Aircraft Worker ID - LITOOperator ID - LITOOperator ID [...] (test code = 2801) HEPATITIS B SURFACE [id number] 17:24:00 Test Item Value Reference Range Interpretation Comments HEPATITIS B SURFACE ANTIGEN (2) Nonreactive Nonreactive (BEAKER) (test code = 2585) Aircraft Worker ID - MAYELIN, TUNNELED CATHETER [id number] 10:44:00Reason for Central Line/PICC?->Need for hemodialysis accessReason for exam:->[facility] 1965 Sex: FFINAL [...] the patient's medical record by the nurse. Pipe Turner: Rigoberto Rey M.D. Recruitment Advertising Manager: None. Approach: Right internal jugular vein Estimated blood loss: < 5 cc. Specimen: None. Fluoroscopy Time: 1 minute and 5 secondsDose (Ka,r): 4 mGy. Technique: Informed written consent was obtained. Discussion of risks, benefits, and alternatives were made with the patient. The patient expressed understanding and agreed to proceed. All elements maximal sterile barrier technique was utilizedfor this procedure, including utilization of sterile scrub solution for skin prep, a large sterile sheet to cover the areas of the patient that were not prepped, and hand hygiene, mask, head covering, and sterile gown for performing radiologist and scrub technologist. The skin was anesthetized with 2%lidocaine.Ultrasound evaluation showed a patent and compressible right internal jugular vein, which was punctured under direct real-time ultrasound guidance with a micropuncture needle. An ultrasound image was saved to PACS. A 0.018 inch wire was placed through the needle into the right atrium. A 4 Cuban micropuncture sheath was placed and a 0.035 wire was advanced into the IVC. A subcutaneous tunnel was created in the right anterior chest wall by blunt dissection. A 19 cm tip to cuff 15.5 Cuban Duraflow 2 catheter was brought through the tunnel. The vessel tract was serially dilated. A peel-awaysheath was placed in the right IJ vein [...] of a right internal jugular tunneled dialysis catheterusing sonographic and fluoroscopic guidance and conscious sedation. Signed: Rigoberto Rey MDReport Verified Date/Time: 08/09/2020 10:44:42 Reading Location: [facility] Radiology Reading Room BASIC METABOLIC [id number] 04:46:00 Test Item Value Reference Range Interpretation [...] S NOT APPLICABLE FOR DIALYSIS PATIEN TS. Aircraft Worker ID - [id number] ID - XQUP45Avjhbrla ID - CCMM19Jyvicaok ID - YEMS85Xwtnguqe ID - ORRC90Mwzgmltc ID - DGWJ65Mypiavke ID - CPAC04Ztrivzti ID - TXNN47Pubvrfwu ID - HWOH85Zwsluobz ID - ZFRG09Sbistbto ID - PETN57Qtwbuggp ID - JIUV13Sdbgvgtn ID - [id number] W/PLT COUNT & AUTO [id number] 04:27:00 Test Item Value Reference Range Interpretation [...] PERCENT (BEAKER) (test code = 2801) POCT-GLUCOSE [id number] 06:14:00 Test Item Value Reference Range Interpretation Comments POC-GLUCOSE METER 76 mg/dL 70-110 : TESTED A T [address] (BEAKER) (test code = [address], [address]) [facility] [address]: Aircraft Worker/Techni daniel ID = [id number] for Tashia Rodney HEMOGLOBIN [id number] 05:40:00 Test Item Value Reference Range Interpretation Comments HEMOGLOBIN A1C (BEAKER) (test code = 4.4 % 4.3-6.1 368) Aircraft Worker ID - [id number]-IQCOIJM [id number] 20:58:00 Test Item Value Reference Range Interpretation Comments POC-GLUCOSE METER 118 mg/dL 70-110 H : TESTED A T [facility] [address] (BEAKER) ([facility] [address] [facility] [address] = [address]) [facility] [address]: Aircraft Worker/Techni daniel ID = [id number] for Tashia Rodney VANCOMYCIN LEVEL, [id number] 08:10:00 Test Item Value Reference Range Interpretation Comments VANCOMYCIN TROUGH (BEAKER) (test 17.0 ug/mL 10.0-20.0 code = 522) Aircraft Worker ID - [id number] 05:26:00 Test Item Value Reference Range Interpretation [...] Borderline 130-159 High 160-189 Very High >=190 Aircraft Worker ID - otcb50Emqmcaav ID - suum25Lckxxltg ID - [id number] METABOLIC [id number] 05:26:00 Test Item Value Reference Range Interpretation [...] S NOT APPLICABLE FOR DIALYSIS PATIEN TS. Aircraft Worker ID - blek52Evohgdkc ID - prol98Gnvylexm ID - xkek04Hdpxoncg ID - fppj28Ppbjmnrg ID - djko40Jgrybggo ID - vhcm76Zyxvzvpt ID - sdcr79Nxnaqxmc ID - lrzj64Nctejndh ID - xndq12Qsuxqgjf ID - [id number] 05:18:00 Test Item Value Reference Range Interpretation Comments MAGNESIUM (BEAKER) (test code = 2.0 mg/dL 1.5-3.0 627) Aircraft Worker ID - swrv13Bqfhhvly ID - ienf79Cvjfpbkl ID - rgyk49Pqjeypnc ID - zres04 [id number] 05:16:00 Test Item Value Reference Range Interpretation Comments PHOSPHORUS (BEAKER) (test code = 4.8 mg/dL 2.5-4.5 H 604) Aircraft Worker ID - [id number] W/PLT COUNT & AUTO [id number] 05:10:00 Test Item Value Reference Range Interpretation [...] PERCENT (BEAKER) (test code = 2801) PROTHROMBIN TIME/[id number] 04:59:00 Test Item Value Reference Range Interpretation Comments PROTIME (BEAKER) 13.2 seconds 9.3-12.0 H Final Infor mation (test code = 759) (Auto Outp ut) INR (BEAKER) (test 1.20 See_Comment Final Inf ormation code = 370) (Auto Output) [Automated mess age] The system [employer] generated this result transmitted ref erence range: <=5.90. The reference range was not used to int erpret this result as normal/abnormal . RECOMMENDED COUMADIN/WARFARIN INR THERAPY RANGESSTANDARD DOSE: 2.0 - 3.0 Includes: PROPHYLAXIS for venous thrombosis, systemic embolization; TREATMENT for venous thrombosis and/or pulmonary embolus.HIGH RISK: Target INR is 2.5-3.5 for patients with mechanical heart valves.HEMOGLOBIN [id number] 04:50:00 Test Item Value Reference Range Interpretation Comments HEMOGLOBIN A1C (BEAKER) (test code = 4.5 % 4.3-6.1 368) Aircraft Worker ID - [id number] FLUID CULTURE + GRAM [id number] 12:18:00 Test Item Value Reference Range Interpretation Comments CULTURE (BEAKER) (test No growth code = 1095) GRAM STAIN RESULT <1+ White blood cells (BEAKER) (test code = seen 1123) GRAM STAIN RESULT No organisms seen (BEAKER) (test code = 17066) BLOOD [id number] 08:01:00 Test Item Value Reference Range Interpretation Comments CULTURE (BEAKER) (test No growth in 5 days code = 1095) BLOOD [id number] 08:01:00 Test Item Value Reference Range Interpretation Comments CULTURE (BEAKER) (test No growth in 5 days code = 1095) POCT-GLUCOSE [id number] 14:58:00 Test Item Value Reference Range Interpretation Comments POC-GLUCOSE METER 101 mg/dL 70-110 TESTED AT [place] [address] ([facility]) (test code = [facility] 1538) [address] HEMOGLOBIN AND [id number] 12:19:00 Test Item Value Reference Range Interpretation Comments HEMOGLOBIN ([facility] [facility]) (test code = 7.5 GM/DL 11.2-15.7 L 410) HEMATOCRIT ([facility]) (test code = 23.1 % 34.1-44.9 L 411) POCT-GLUCOSE [id number] 08:37:00 Test Item Value Reference Range Interpretation Comments POC-GLUCOSE METER 168 mg/dL 70-110 H TESTED AT [place] [address] ([facility]) (test code = ANIL Brown [facility] 1538) [address] LACTIC ACID, [id number] 07:04:00 Test Item Value Reference Range Interpretation Comments LACTATE BLOOD VENOUS 1.9 mmol/L 0.5-2.2 Specime n slightly (2) ([facility]) (test hemolyzed code = 2872) POCT-GLUCOSE [id number] 21:25:00 Test Item Value Reference Range Interpretation Comments POC-GLUCOSE METER 102 mg/dL 70-110 TESTED AT [place] [address] ([facility]) (test code = [facility] 1538) [address] POCT-GLUCOSE [id number] 18:50:00 Test Item Value Reference Range Interpretation Comments POC-GLUCOSE METER 91 mg/dL 70-110 TESTED AT [place] [address] ([facility]) (test code = [facility] [address] 1538) POCT-GLUCOSE [id number] 13:23:00 Test Item Value Reference Range Interpretation Comments POC-GLUCOSE METER 114 mg/dL 70-110 H TESTED AT [place] [address] ([facility]) (test code = [facility] 1538) [address] POCT-GLUCOSE [id number] 09:11:00 Test Item Value Reference Range Interpretation Comments POC-GLUCOSE METER 131 mg/dL 70-110 H TESTED AT [place] [address] ([facility]) (test code = [facility] 1538) [address] BASIC METABOLIC [id number] 06:45:00 Test Item Value Reference Range Interpretation [...] S NOT APPLICABLE FOR DIALYSIS PATIEN TS. [id number] 06:40:00 Test Item Value Reference Range Interpretation Comments PHOSPHORUS (BEAKER) (test code = 6.5 mg/dL 2.3-4.7 H 604) [id number] 06:40:00 Test Item Value Reference Range Interpretation Comments MAGNESIUM (BEAKER) (test code = 1.9 mg/dL 1.6-2.6 627) LACTIC ACID, [id number] 06:12:00 Test Item Value Reference Range Interpretation Comments LACTATE BLOOD VENOUS (2) (BEAKER) 2.3 mmol/L 0.5-2.2 H (test code = 2872) CBC W/PLT COUNT & AUTO [id number] 06:05:00 Test Item Value Reference Range Interpretation [...] PERCENT (BEAKER) (test code = 2801) POCT-GLUCOSE [id number] 21:04:00 Test Item Value Reference Range Interpretation Comments POC-GLUCOSE METER 135 mg/dL 70-110 H TESTED AT [facility] 67 ([facility]) (test code = ANIL Brown [facility] 1538) [address] [id number] 17:08:00 Test Item Value Reference Range Interpretation Comments FERRITIN (BEAKER) (test code = 1367 ng/mL 5-275 H 361) POCT-GLUCOSE [id number] 17:00:00 Test Item Value Reference Range Interpretation Comments POC-GLUCOSE METER 137 mg/dL 70-110 H TESTED AT [place] [address] ([facility]) (test code = [facility] Nithya [facility] 1538) [address] IRON, TIBC, % SAT. (WITHOUT FERRITIN)2018-10-30 16:48:00 Test Item Value Reference Range Interpretation Comments IRON (BEAKER) (test code = 547) 53.0 ug/dL 40.0-160.0 TOTAL IRON BINDING CAPACITY 135 ug/dL 250-450 L (BEAKER) (test code = 769) IRON % SATURATION (2) (BEAKER) 39 % 20-55 (test code = 2590) RETICULOCYTE [id number] 16:47:00 Test Item Value Reference Range Interpretation Comments RETICULOCYTE COUNT PCT (BEAKER) (test 2.1 % 0.5-1.7 H code = 575) LACTIC ACID, [id number] 14:17:00 Test Item Value Reference Range Interpretation Comments LACTATE BLOOD VENOUS (2) (BEAKER) 1.7 mmol/L 0.5-2.2 (test code = 2872) HEMOGLOBIN AND [id number] 14:03:00 Test Item Value Reference Range Interpretation Comments HEMOGLOBIN (BEAKER) (test code = 6.4 GM/DL 11.2-15.7 L 410) HEMATOCRIT (BEAKER) (test code = 20.2 % 34.1-44.9 L 411) POCT-GLUCOSE [id number] 11:11:00 Test Item Value Reference Range Interpretation Comments POC-GLUCOSE METER 143 mg/dL 70-110 H TESTED AT [facility] 6720 (BEAKER) (test code = [place] 1538) [address] [id number] 03:47:00 Test Item Value Reference Range Interpretation Comments PROCALCITONIN (BEAKER) (test code 0.76 ng/mL <0.05 H = 3036) SEPSIS RISK (ng/mL)Low: 0.05-0.50Intermediate: 0.51-2.00High: >=2.01 [id number] 02:58:00 Test Item Value Reference Range Interpretation Comments PHOSPHORUS (BEAKER) (test code = 6.8 mg/dL 2.3-4.7 H 604) [id number] 02:58:00 Test Item Value Reference Range Interpretation Comments MAGNESIUM (BEAKER) (test code = 1.9 mg/dL 1.6-2.6 627) LACTIC ACID, [id number] 02:53:00 Test Item Value Reference Range Interpretation Comments LACTATE BLOOD VENOUS 1.6 mmol/L 0.5-2.2 Specime n slightly (2) (BEAKER) (test hemolyzed code = 2872) RAD, CHEST, 1 VIEW, NON [id number] 02:31:00Reason for exam:->altered mental statusShould this be [...] MDReport Verified Date/Time: 10/30/2018 02:31:36 OXYGEN SATURATION, [id number] 02:25:00 Test Item Value Reference Range Interpretation Comments O2 SATURATION (MEASURED) (BEAKER) 75.1 % (test code = 1455) If patient has internal jugular ( IJ) or subclavian central line or PICC line. Draw from distal port. Label as central venous oxygen.CBC W/PLT COUNT & AUTO [id number] 00:56:00 Test Item Value Reference Range Interpretation [...] (BEAKER) (test code = 2801) COMPREHENSIVE METABOLIC [id number] 00:46:00 Test Item Value Reference Range Interpretation [...] APPLICABLE FOR DIALYSIS PATIEN TS. LACTIC ACID, [id number] 00:27:00 Test Item Value Reference Range Interpretation Comments LACTATE BLOOD VENOUS (2) (BEAKER) 1.9 mmol/L 0.5-2.2 (test code = 2872) BLOOD GAS, [id number] 00:24:00 Test Item Value Reference Range Interpretation [...] (test code = 1819) 21.0 % POCT-GLUCOSE [id number] 23:54:00 Test Item Value Reference Range Interpretation Comments POC-GLUCOSE METER 249 mg/dL 70-110 H TESTED AT [facility] 6720 (BEAKER) (test code = [place] 1538) [address] BODY FLUID CELL COUNT WITH [id number] 21:57:00 Test Item Value Reference Range Interpretation [...] (test code = 2873) C. DIFFICILE GDH [id number] 10:06:00 Test Item Value Reference Range Interpretation Comments CDT TOXIN (test code Positive Negative A = [id number]) CDT GDH ANTIGEN Positive Negative A Confirms Beti stridium (test code = difficile-assoc iated [id number]) infection.First line therapy - oral Vancomycin. Con tinue enteric isolati on until 72 hours after treatment is discontinued and symptoms have r esolved. Testing performed by [employer] Rapid Cassette Assay. For GDH, published sensitivity of the assay is 98.7% compared to cytotoxicity testing. For Toxin AB, published sensitivity is 87.8% and specificity 99.4% compared to cytotoxicity testing.Verification of kit performance was done by the [facility] prior to clinical use.POCT-GLUCOSE [id number] 09:14:00 Test Item Value Reference Range Interpretation Comments POC-GLUCOSE METER 109 mg/dL 70-110 TESTED AT [facility] 6720 ([facility]) (test code = [place] 1538) [address] [id number] 08:46:00 Test Item Value Reference Range Interpretation Comments PROCALCITONIN (BEAKER) (test code 0.67 ng/mL <0.05 H = 3036) SEPSIS RISK (ng/mL)Low: 0.05-0.50Intermediate: 0.51-2.00High: >=2.01CBC W/PLT COUNT & AUTO [id number] 08:36:00 Test Item Value Reference Range Interpretation [...] PERCENT (BEAKER) (test code = 2801) VITAMIN [id number] 07:12:00 Test Item Value Reference Range Interpretation Comments VITAMIN B12 (BEAKER) (test code = 680 pg/mL 213-816 774) TSH/FREE T4 IF [id number] 07:12:00 Test Item Value Reference Range Interpretation Comments THYROID STIMULATING HORMONE 0.94 uIU/mL 0.35-4.94 (BEAKER) (test code = 772) OSMOLALITY, [id number] 07:06:00 Test Item Value Reference Range Interpretation Comments OSMOLALITY, SERUM (BEAKER) (test 296 mOsm/kg 275-295 H code = 615) BASIC METABOLIC [id number] 06:11:00 Test Item Value Reference Range Interpretation [...] S NOT APPLICABLE FOR DIALYSIS PATIEN TS. [id number] 06:05:00 Test Item Value Reference Range Interpretation Comments PHOSPHORUS (BEAKER) (test code = 7.4 mg/dL 2.3-4.7 H 604) [id number] 06:05:00 Test Item Value Reference Range Interpretation Comments MAGNESIUM (BEAKER) (test code = 2.0 mg/dL 1.6-2.6 627) HEPATIC FUNCTION [id number] 06:05:00 Test Item Value Reference Range Interpretation [...] code = 39 U/L 6-55 347) C-REACTIVE [id number] 06:05:00 Test Item Value Reference Range Interpretation Comments C-REACTIVE PROTEIN (BEAKER) (test 1.72 mg/dL 0.00-0.50 H code = 676) [id number] 05:56:00 Test Item Value Reference Range Interpretation Comments AMMONIA (BEAKER) (test code = 348) 16 mol/L 18-72 L RAD, CHEST, 1 VIEW, NON [id number] 21:14:00Reason for exam:->chest painIs the patient ?->UnknownShould [facility]?->YesFINAL REPORT Chest, 1 view. History: Chest pain Comparison: Plain radiograph the chest dated 01/15/2018.. Findings: The cardiomediastinal silhouette and pulmonary vasculature are within normal limits for a portable exam. The lungs are clear without evidence of consolidation or effusion. The soft tissues and osseous structures are intact. IMPRESSION: No acute cardiopulmonary abnormality. Signed: Bernardo Pleitez [facility] Verified Date/Time: 10/28/2018 21:14:02 URINALYSIS [id number] 20:54:00 Test Item Value Reference Range Interpretation Comments RBC UA (BEAKER) (test code = 519) 1 /HPF WBC UA (BEAKER) (test code = 520) 10 /HPF SQUAMOUS EPITHELIAL (BEAKER) (test 5 /HPF code = 516) HYALINE CASTS (BEAKER) (test code = 2 /LPF 514) URINALYSIS WITH MICROSCOPIC IF [id number] 20:52:00 Test Item Value Reference Range Interpretation [...] SOURCE(BEAKER) (test code = 2795) BASIC METABOLIC [id number] 20:32:00 Test Item Value Reference Range Interpretation [...] S NOT APPLICABLE FOR DIALYSIS PATIEN TS. [id number] 20:29:00 Test Item Value Reference Range Interpretation Comments MAGNESIUM (BEAKER) (test code = 2.0 mg/dL 1.6-2.6 627) [id number] 20:29:00 Test Item Value Reference Range Interpretation Comments LIPASE (BEAKER) (test code = 749) 65 U/L 8-78 [id number] 20:10:00 Test Item Value Reference Range Interpretation [...] mechanical heart valves.CBC W/PLT COUNT & AUTO [id number] 20:05:00 Test Item Value Reference Range Interpretation [...] (test code = 2801) CT, BRAIN, WITHOUT [id number] 19:38:00Reason for exam:->ALTERED MENTAL STATUSReason for exam:->GENERALIZED [...] further characterization. Signed: Ruth Benítez Verified Date/Time: 10/28/2018 19:38:10 Reading Location: [facility] C0[facility] signed by: RUTH BENÍTEZ MD on 10/28/2018 07:38 PMHEMOGLOBIN [id number] 07:56:00 Test Item Value Reference Range Interpretation Comments HEMOGLOBIN A1C (BEAKER) (test code = 6.1 % 4.3-6.1 368) VITAMIN [id number] 06:59:00 Test Item Value Reference Range Interpretation Comments VITAMIN B12 (BEAKER) (test code = 483 pg/mL 213-816 774) TSH/FREE T4 IF [id number] 06:59:00 Test Item Value Reference Range Interpretation Comments THYROID STIMULATING HORMONE 1.74 uIU/mL 0.35-4.94 (BEAKER) (test code = 772) BASIC METABOLIC [id number] 06:04:00 Test Item Value Reference Range Interpretation [...] NOT APPLICABLE FOR DIALYSIS PATIEN TS. LIPID [id number] 05:54:00 Test Item Value Reference Range Interpretation [...] Very High >=190CBC W/PLT COUNT & AUTO [id number] 04:52:00 Test Item Value Reference Range Interpretation [...] (test code = 2801) MR, BRAIN, WITHOUT [id number] 04:11:00FINAL REPORT MRI Brain without contrast Clinical History: TIA/Stroke Technique:MRI of the brain utilizing axial T2, FLAIR, GRE, DWI; sagittal and coronal T1-weighted images. MRA of the head utilizing 3-D kxvw-vn-getnif technique, with 3-D reconstructions. MRA of the neck utilizing 2-D and 3-D brey-jh-ijhcvo technique, with 3-D reconstructions. Comparisons: None Findings:MRI [...] MRA head: No evidence for a major robinson of Rincon proximal branch vessel occlusion. MRA neck: No evidence of hemodynamically significant stenosis in the cervical carotid or vertebral arteries by NASCET criteria. Signed: Bernardo Pleitez MDReportVerified Date/Time: 08/19/2018 04:11:07 Reading Location: [address] Transitional Reading Room MR, MRA, BRAIN, WITHOUT [id number] 04:11:00FINAL REPORT MRI Brain without contrast Clinical History: TIA/Stroke Technique:MRI of the brain utilizing axial T2, FLAIR, GRE, DWI; sagittal and coronal T1-weighted images. MRA of the head utilizing 3-D kisw-bu-iaunqy technique, with 3-D reconstructions. MRA of the neck utilizing 2-D and 3-D cgro-or-ytdkxp technique, with 3-D reconstructions. Comparisons: None Findings:MRI [...] MRA head: No evidence for a major robinson of Rincon proximal branch vessel occlusion. MRA neck: No evidence of hemodynamically significant stenosis in the cervical carotid or vertebral arteries by NASCET criteria. Signed: Bernardo Pleitez MDReportVerified Date/Time: 08/19/2018 04:11:07 Reading Location: [address] Transitional Reading Room MR, MRA, NECK, WITHOUT IV [id number] 04:11:00Reason for exam:->Stroke/TIAFINAL REPORT MRI Brain without contrast Clinical History: TIA/Stroke Technique:MRI of the brain utilizing axial T2, FLAIR, GRE, DWI; sagittal and coronal T1-weighted images. MRA of the head utilizing 3-D oqbx-hu-psrglw technique, with 3-D reconstructions. MRA of the neck utilizing 2- D and 3-D hlgj-hn-dayzls technique, with 3-D reconstructions. Comparisons: None Findings:MRI [...] arteries in the neck. IMPRESSION:MRI brain: No evidenceof acute infarct, hemorrhage, or hydrocephalus. Symmetric FLAIR signal hyperintensity within the bilateral containment, nonspecific however can be seen in setting of metabolic derangement such as uremic encephalopathy or extrapontine osmotic myelinolysis. MRA head: No evidence for a major robinson of Rincon proximal branch vessel occlusion. MRA neck: No evidence of hemodynamically significant stenosis in the cervical carotid or vertebral arteries by NASCET criteria. Signed: Bernardo Pleitez MDReport Verified Date/Time: 08/19/2018 04:11:07 Reading Location: [address] Transitional Reading Room POCT-GLUCOSE [id number] 21:55:00 Test Item Value Reference Range Interpretation Comments POC-GLUCOSE METER 115 mg/dL 70-110 H TESTED AT [place] [address] (CARLY) (test code = [place] [address]) [address] POCT-GLUCOSE [id number] 18:29:00 Test Item Value Reference Range Interpretation Comments POC-GLUCOSE METER 93 mg/dL 70-110 TESTED AT [facility] 6720 (CARLY) (test code = [place] [address] 1538) CT, CTA [id number] 10:10:00Reason for Exam:->assess iliac vessels, pre kidney transplantAddendum BeginsREPORT STATUS:A Addendum: I agree with the previously described non vascular findings. Signed: Cristopher Fitzpatrick MDReport Verified Date/Time: 06/27/2018 10:10:18 Reading Location: [place] [address] Angio Body Reading RoomAddendum EndsFINAL REPORT CT angiography of the abdominal aorta and pelvic arteries, 25-Jun-18 INDICATION: This is a 53 year old female with end-stage renal disease, presents for pretransplant assessment. This study is performed in anattempt to avoid an invasive procedure. TECHNIQUE: Spiral acquisition before and during intravenous contrast administration using a [employer] multidetector CT scanner. Images were obtained before [...] except for minimal calcific atherosclerosis identified proximally. Cleaner And Presser dimensions of the left and the right external iliac arteries are 6 and 6 mm, respectively. Similarly, the associated pelvic veins are patent with no venous thrombosis identified. Cleaner And Presser dimensions of the left and the right [...] no arterial stenosis or venous thrombosis identified. Cleaner And Presser dimensions of the left and the right external iliac arteries and veins are as described above. 2. Widely patent mesenteric arteries. Patent renal arteries. 3. Other findings as described above. 4. An addendum will be dictated regarding the non-vascular findings by the Transformer Maker Radiologist. Signed: Samson Mcgill MDReport Verified Date/Time: 06/25/2018 09:45:12 Reading Location: [facility] P047 Cardiology MRI OCCULT BLOOD, [id number] 00:49:00 Test Item Value Reference Range Interpretation Comments FECAL OCCULT BLOOD (BEAKER) (test Negative Negative code = 618) U/S, ABDOMINAL, [id number] 13:53:00Reason for Exam:->pre transplant evaluationFINAL REPORT Abdominal [...] MDReport Verified Date/Time: 03/01/2018 13:53:56 Reading Location: [facility] P006J Ultrasound Reading Room OCCULT BLOOD, [id number] 11:11:00 Test Item Value Reference Range Interpretation Comments FECAL OCCULT BLOOD (BEAKER) (test Negative Negative code = 618) [id number] 10:23:00 Test Item Value Reference Range Interpretation Comments PHOSPHORUS (BEAKER) (test code = 3.9 mg/dL 2.3-4.7 604) PROTHROMBIN [id number] 10:21:00 Test Item Value Reference Range Interpretation Comments PROTIME (BEAKER) (test code = 13.2 seconds 11.7-14.7 759) INR (BEAKER) (test code = 370) 1.0 <=5.9 RECOMMENDED COUMADIN/WARFARIN INR THERAPY RANGESSTANDARD DOSE: 2.0 - 3.0 Includes: PROPHYLAXIS for venous thrombosis, systemic embolization; TREATMENT for venous thrombosis and/or pulmonary embolus.HIGH RISK: Target INR is 2.5-3.5 for patients with mechanical heart valves.URINE [id number] 10:03:00 Test Item Value Reference Range Interpretation Comments CULTURE (BEAKER) (test 40-49,000 col/mL skin code = 1095) johnny CYTOMEGALOVIRUS ANTIBODY, [id number] 10:10:00 Test Item Value Reference Range Interpretation Comments CYTOMEGALOVIRUS, IGG (BEAKER) Positive Negative, Equivocal A (test code = 3429) CMV IgG Result Interpretation: </= 0.8 Al Negative 0.9-1.0 Al Equivocal >/=1.1 Al PositiveCYTOMEGALOVIRUS ANTIBODY, [id number] 10:10:00 Test Item Value Reference Range Interpretation Comments CYTOMEGALOVIRUS IGM ANTIBODY Positive Negative, Equivocal A (BEAKER) (test code = 3437) CMV IgM Result Interpretation: </= 0.8 Al Negative 0.9-1.0 Al Equivocal >/= 1.1 Al PositiveEBV ANTIBODY, [id number] 10:10:00 Test Item Value Reference Range Interpretation Comments ASHELY JENNINGS VIRAL CAPSID Positive Negative, Equivocal A ANTIGEN IGG (BEAKER) (test code = 3415) Ashely Jennings Viral Capsid Antigen IgG Result Interpretation: </= 0.8 Al Negative 0.9-1.0 Al Equivocal >/= 1.1 Al PositiveEBV ANTIBODY, [id number] 10:10:00 Test Item Value Reference Range Interpretation Comments ASHELY JENNINGS VIRAL CAPSID Negative Negative, Equivocal ANTIGEN IGM (BEAKER) (test code = 3418) Ashely Jennings Viral Capsid Antigen IgM Result Interpretation: </= 0.8 Al Negative 0.9-1.0 Al Equivocal >/= 1.1 Al PositiveVARICELLA ZOSTER ANTIBODY, [id number] 10:09:00 Test Item Value Reference Range Interpretation Comments VARICELLA ZOSTER IGG (AL) (BEAKER) > (test code = 3197) VARICELLA ZOSTER RESULT INTERPRETATIONS: <=0.8 Al Nonreactive: Presumed non- immune to VZV 0.9-1.0Al Equivocal >=1.1 Al Reactive: Presumed immune to VZV [id number] 07:38:00 Test Item Value Reference Range Interpretation Comments RPR SCREEN (BEAKER) (test code = Nonreactive Nonreactive 420) CBC W/PLT COUNT & AUTO [id number] 14:38:00 Test Item Value Reference Range Interpretation [...] (test code = 2801) RAD, CHEST, 2 [id number] 12:48:00Reason for Exam:->pre transplant evaluationFINAL REPORT PA and Lateral views of the chest dated 01/15/2018 Clinical information: pre transplant evaluation Comment: Heart is normal in size. Pulmonary vasculature is unremarkable. Lungs are clear. No pulmonary infiltrate or pleural effusion is present. Impression: No active c ardiopulmonary disease. Signed: Daiana Anaya [facility] Verified Date/Time: 01/15/2018 12:48:30 ReadingLocation: [address] Radiology Reading Room HEMOGLOBIN [id number] 11:27:00 Test Item Value Reference Range Interpretation Comments HEMOGLOBIN A1C (BEAKER) (test code = 5.6 % 4.3-6.1 368) URINALYSIS W/ [id number] 11:23:00 Test Item Value Reference Range Interpretation [...] = 1585) Rare SOURCE(BEAKER) (test code = 0251) COMPREHENSIVE METABOLIC [id number] 10:41:00 Test Item Value Reference Range Interpretation [...] NOT APPLICABLE FOR DIALYSIS PATIEN TS. URIC [id number] 10:04:00 Test Item Value Reference Range Interpretation [...] H code = 635) HEPATITIS B SURFACE [id number] 10:03:00 Test Item Value Reference Range Interpretation Comments HEPATITIS B SURFACE ANTIGEN (2) Nonreactive Nonreactive (BEAKER) (test code = 2585) HEPATITIS B SURFACE [id number] 10:03:00 Test Item Value Reference Range Interpretation Comments HEPATITIS B SURFACE ANTIBODY 69.3 mIU/mL <8.0 H (BEAKER) (test code = 647) HEPATITIS B CORE ANTIBODY, [id number] 10:03:00 Test Item Value Reference Range Interpretation Comments HEPATITIS B CORE IGM ANTIBODY Nonreactive Nonreactive (BEAKER) (test code = 645) HEPATITIS C [id number] 10:03:00 Test Item Value Reference Range Interpretation Comments HEPATITIS C ANTIBODY (BEAKER) Nonreactive Nonreactive (test code = 367) HIV-1 ANTIGEN WITH HIV-1/2 [id number] 10:03:00 Test Item Value Reference Range Interpretation Comments HIV-1 ANTIGEN WITH HIV 1\T\2 Nonreactive Nonreactive ANTIBODY (2) (BEAKER) (test code = 2586) PTH, [id number] 09:45:00 Test Item Value Reference Range Interpretation Comments PARATHYROID HORMONE INTACT 308.0 pg/mL 8.5-72.5 H (CARLY) (test code = 577) [id number] 09:31:00 Test Item Value Reference Range Interpretation Comments PROTIME ([employer]PARVIZ) (test code = 14.4 seconds 11.7-14.7 759) INR ([employer]PARVIZ) (test code = 370) 1.1 <=5.9 PARTIAL THROMBOPLASTIN TIME 29.8 seconds 22.5-36.0 ([employer]PARVIZ) (test code = 760) RECOMMENDED COUMADIN/WARFARIN INR THERAPY RANGESSTANDARD DOSE: 2.0 - 3.0 Includes: PROPHYLAXIS for venous thrombosis, systemic embolization; TREATMENT for venous thrombosis and/or pulmonary embolus.HIGH RISK: Target INR is 2.5-3.5 for patients with mechanical heart valves.
--- NOTE | 2022-03-21 10:43 | RAD REPORT ---
EXAM DESCRIPTION: CT - Abdomen Pelvis Wo Contrast - 03/21/2022 10:25 am CLINICAL HISTORY: Abdominal pain. abdominal pain, diarrhea COMPARISON: Abdomen Pelvis Wo Contrast dated 06/09/2021 TECHNIQUE: CT imaging of the abdomen and pelvis was performed without contrast. Solid organ, bowel a nd vascular assessment is limited due to lack of IV and oral contrast. All CT scans are performed using dose optimization technique as appropriate and may include automated exposure control or mA/KV adjustment according to patient size. FINDINGS: The lower lung cornejo are clear.Multi stone cholelithiasis. The liver, spleen, pancreas, adrenal glands are within normal limits for a limited non-contrast exami nation. Both kidneys are mildly atrophic and contain multiple stones in the calices bilaterally. There is als o stone in left renal pelvis/ proximal left ureter. No significant hydronephrosis. No bowel obstruction, free air, free fluid or abscess. Significant stool and liquid seen in the recto sigmoid colon. Mild perirectal fat stranding. The appendix is normal. The osseous structures are within normal limits. IMPRESSION: Retention of stool and fluid in the rectum and rectosigmoid colon is seen with mild surr ounding inflammation in the perirectal fat suggests rectosigmoid colitis. Multi stone cholelithiasis. Bilateral nephrolithiasis without hydronephrosis. Both kidneys are mildly atrophic. A limited non-contrast examination was performed as detailed.
[2022-03-21 11:20] LABS: Absolute Lymphocytes (CBC) 2.3 K/uL (0.7-4.9); Hematocrit 34.6 % (36.0-45.0); Lymphocytes % 33.9 % (15.3-44.8); MCV 106.4 fL (80-100); MPV 7.8 fL (7.6-11.3); RBC Red Blood Cell Count 3.25 M/uL (3.86-4.86)
[2022-03-21 11:21] LABS: SARS-COV-2 RT PCR NEGATIVE (NEGATIVE)
[2022-03-21 11:29] LABS: AST/SGOT 9 U/L (15-37); Alkaline Phosphatase 65 U/L (45-117); Sodium Level 140 mmol/L (136-145)
[2022-03-21 11:32] LABS: Potassium 2.8 mmol/L (3.5-5.1)
[2022-03-21 12:26] LABS: Albumin 2.3 g/dL (3.4-5.0); BUN Blood Urea Nitrogen 36 mg/dL (7-18); Bicarbonate 27 mmol/L (21-32); Bilirubin Total 0.3 mg/dL (0.2-1.0); Glomerular Filtration Rate 6 ml/min (=/>90); Glucose Level 99 mg/dL (74-106); Lipase 97 U/L (73-393); Protein, Total 6.3 g/dL (6.4-8.2)
[2022-03-21 12:27] LABS: ALT/SGPT < 10 U/L (13-56)
[2022-03-21 12:36] LABS: C.diff Antigen/Toxin Ag neg : Tox neg (NEG : NEG)
--- NOTE | 2022-03-21 13:47 | ER ---
Nurse's Notes [facility] Name: Maki Tabares Age: 56 yrs Sex: Female : 1965 Arrival Date: 03/21/2022 Time: 09:39 Bed 19 Private MD: Diagnosis: Hypokalemia;Acute Colitis;End-stage renal disease Presentation: 03/21 09:57 Chief complaint: Patient states: Watery, odorous diarrhea x 2 weeks. Coronavirus ss screen: Client denies travel out of the [place] in the last 14 days. Ebola Screen: Patient denies exposure to infectious person. Patient denies travel to an Ebola-affected area in the 21 days before illness onset. Initial Sepsis Screen: Does the patient meet any 2 criteria? No. Patient's initial sepsis screen is negative. Does the patient have a suspected source of infection? No. Patient's initial sepsis screen is negative. Risk Assessment: Do you want to hurt yourself or someone else? Patient reports no desire to harm self or others. Onset of symptoms was March 07, 2022. 09:57 Method Of Arrival: Wheelchair ss 09:57 Acuity: TAVIA 3 ss Historical: - Allergies: 10:02 crawfish; ss 10:02 SHELLFISH; ss - PMHx: 10:02 Diabetes - NIDDM; Dialysis; peritoneal; Hyperlipidemia; Hypertension; Parkinsons; ss Seizure; - PSHx: 10:02 Total abdominal hysterectomy; ss - Immunization history:: Client reports receiving the 2nd dose of the Covid vaccine. - Social history:: Smoking status: Patient denies any tobacco usage or history of. Screenin:15 [facility] ED Fall Risk Assessment (Adult) History of falling in the last 3 months, jl7 including since admission No falls in past 3 months (0 pts) Confusion or Disorientation No (0 pts) Intoxicated or Sedated No (0 pts) Impaired Gait Yes (1 pt) Mobility Assist Device Used Yes (1 pt) Altered Elimination Yes (1 pt) Score/Fall Risk Level 3 or more points = High Risk Oriented to surroundings, Maintained a safe environment, Educated pt \T\ family on fall prevention, incl call for assistance when getting out of bed, Assessed \T\ reinforced patient's understanding of fall precautions, Hourly rounding (assess needs \T\ fall precautionary measures) done, Used gait belt as appropriate Utilized family, sitter, or virtual crap shooter as indicated. Abuse screen: Denies threats or abuse. Denies injuries from another. Nutritional screening: No deficits noted. Tuberculosis screening: No symptoms or risk factors identified. Assessment: 10:00 General: Appears in no apparent distress. uncomfortable, Behavior is calm, cooperative, jl7 appropriate for age. Pain: Complains of pain in right lower quadrant and left lower quadrant Pain currently is 0 out of 10 on a pain scale. Quality of pain is described as crampy, Pain began x 2 weeks Is intermittent. Neuro: Level of Consciousness is awake, alert, obeys commands, Oriented to person, place, time, situation. Cardiovascular: Denies chest pain, Patient's skin is warm and dry. Respiratory: Airway is patent Respiratory effort is even, unlabored, Respiratory pattern is regular, symmetrical. GI: Abdomen is flat, non-distended, Stools are reported to be loose, Last BM was March 21, 2022. Bowel sounds present X 4 quads. : Reports anuria. 11:00 Reassessment: Patient appears in no apparent distress at this time. No changes from jl7 previously documented assessment. Patient and/or family updated on plan of care and expected duration. Pain level reassessed. Patient is alert, oriented x 3, equal unlabored respirations, skin warm/dry/pink. 11:15 Reassessment: Reassessment: Reassessment: Assisted pt on bedpan for BM, small amount of jl7 liquid stool collected for stool culture. 12:00 Reassessment: Patient appears in no apparent distress at this time. No changes from jl7 previously documented assessment. Patient and/or family updated on plan of care and expected duration. Pain level reassessed. Patient is alert, oriented x 3, equal unlabored respirations, skin warm/dry/pink. 13:00 Reassessment: Patient appears in no apparent distress at this time. No changes from jl7 previously documented assessment. Patient and/or family updated on plan of care and expected duration. Pain level reassessed. Patient is alert, oriented x 3, equal unlabored respirations, skin warm/dry/pink. 14:00 Reassessment: Patient appears in no apparent distress at this time. No changes from jl7 previously documented assessment. Patient and/or family updated on plan of care and expected duration. Pain level reassessed. Patient is alert, oriented x 3, equal unlabored respirations, skin warm/dry/pink. 15:00 Reassessment: Patient appears in no apparent distress at this time. No changes from jl7 previously documented assessment. Patient and/or family updated on plan of care and expected duration. Pain level reassessed. Patient is alert, oriented x 3, equal unlabored respirations, skin warm/dry/pink. 17:30 Reassessment: Dr. Davis at bedside for admission. jl7 18:15 Reassessment: Assisted pt on bedpan for BM. Pt had small amount of liquid stool, jl7 cleaned pt and placed new brief on pt. 19:30 General: Appears comfortable, Behavior is calm, cooperative. Pain: Denies pain. Neuro: ha1 Level of Consciousness is awake, alert, obeys commands, Oriented to person, place, time, situation. Cardiovascular: Denies chest pain, Capillary refill < 3 seconds Patient's skin is warm and dry. Respiratory: Airway is patent Respiratory effort is even, unlabored, Respiratory pattern is regular, symmetrical. GI: Abdomen is flat, non-distended, Bowel sounds present X 4 quads. Reports diarrhea, vomiting. : Reports does not produced urine. EENT: No deficits noted. No signs and/or symptoms were reported regarding the EENT system. Derm: Skin is healthy with good turgor, Skin is normal. Musculoskeletal: Circulation, motion, and sensation intact. Vital Signs: 09:57 BP 117 / 74; Pulse 63; Temp 98.4; Height 5 ft. 1 in. (154.94 cm); Pain 0/10; ss 10:17 Resp 15; Pulse Ox 100% on R/A; jl7 10:45 BP 116 / 81; Pulse 52; Resp 15; Pulse Ox 100% ; jl7 11:35 BP 119 / 64; Pulse 54; Resp 17; Pulse Ox 100% ; jl7 12:15 BP 108 / 69; Pulse 47; Resp 14; Pulse Ox 100% ; jl7 13:00 BP 129 / 80; Pulse 52; Resp 15; Pulse Ox 100% ; jl7 19:30 BP 128 / 69; Pulse 62; Resp 16; Temp 98.3; Pulse Ox 98% on R/A; ha1 ED Course: 09:39 Patient arrived in ED. rg4 09:43 Parmjit Castillo PA is PHCP. [facility] 09:43 Mannie Carbajal MD is Attending Physician. [facility] 10:00 Mike Holder, RN is Primary Nurse. jl7 10:02 Triage completed. ss 10:02 Arm band placed on right wrist. ss 10:05 Patient has correct armband on for positive identification. Placed in gown. Bed in low jl7 position. Call light in reach. Side rails up X2. Pulse ox on. NIBP on. Warm blanket given. 10:10 Initial lab(s) drawn, by me, sent to lab. COVID swab sent to lab. Flu and/or RSV swab jl7 sent to lab. Inserted saline lock: 22 gauge in right antecubital area, using aseptic technique. Blood collected. 10:26 CT Abd/Pelvis - Without Contrast In Process Unspecified. EDMS 11:47 monitor car operator on. Notified Nurse Practitioner and/or Physician Photogrammetric Surveyor of a jl7 critical lab result(s), K 2.9. 12:15 No provider procedures requiring assistance completed. jl7 13:45 Hernesto Davis MD is Hospitalizing Provider. [facility] 15:00 Patient admitted, IV remains in place. intact, No redness/swelling at site. jl7 Administered Medications: 10:16 Drug: Zofran (Ondansetron) 4 mg Route: IVP; Site: right antecubital; jl7 11:00 Follow up: Response: No adverse reaction; Nausea is decreased jl7 14:58 Drug: Cipro (ciprofloxacin) 500 mg Route: PO; jl7 19:39 Follow up: Response: No adverse reaction jl Medication: 11:35 VIS not applicable for this client. jl7 Outcome: 13:46 Decision to Hospitalize by Provider. [facility] 23:03 Admitted to ER Hold. Please see [facility] for further documentation. ha1 23:03 Condition: stable 23:03 Instructed on the need for admit. 03/22 09:09 Patient left the ED. mb9 Signatures: Dispatcher [employer] EDMS Parmjit Castillo PA PA jmm Smirch, Shelby, GABRIELA RN Marilynn Jones rg4 Mike Holder, RN RN jl7 Faye Myers RN RN [facility] Maria Teresa Price RN RN mb9
--- NOTE | 2022-03-21 13:47 | EDPHYS ---
Physician Documentation [facility] Name: Maki Tabares Age: 56 yrs Sex: Female : 1965 Arrival Date: 03/21/2022 Time: 09:39 Bed 19 Private MD: ED Physician Mannie Carbajal Historical: - Allergies: 03/21 10:02 crawfish; ss 10:02 SHELLFISH; ss - PMHx: 10:02 Diabetes - NIDDM; Dialysis; peritoneal; Hyperlipidemia; Hypertension; Parkinsons; ss Seizure; - PSHx: 10:02 Total abdominal hysterectomy; ss - Immunization history:: Client reports receiving the 2nd dose of the Covid vaccine. - Social history:: Smoking status: Patient denies any tobacco usage or history of. Vital Signs: 09:57 BP 117 / 74; Pulse 63; Temp 98.4; Height 5 ft. 1 in. (154.94 cm); Pain 0/10; ss 10:17 Resp 15; Pulse Ox 100% on R/A; jl7 10:45 BP 116 / 81; Pulse 52; Resp 15; Pulse Ox 100% ; jl7 11:35 BP 119 / 64; Pulse 54; Resp 17; Pulse Ox 100% ; jl7 12:15 BP 108 / 69; Pulse 47; Resp 14; Pulse Ox 100% ; jl7 13:00 BP 129 / 80; Pulse 52; Resp 15; Pulse Ox 100% ; jl7 19:30 BP 128 / 69; Pulse 62; Resp 16; Temp 98.3; Pulse Ox 98% on R/A; ha1 MDM: 09:55 Patient medically screened. [facility] 13:44 Data reviewed: vital signs, nurses notes. Counseling: I had a detailed discussion with margie the patient and/or guardian regarding: the historical points, exam findings, and any diagnostic results supporting the discharge/admit diagnosis, lab results, the need for further work-up and treatment in the hospital. ED course: I discussed the patient with Dr. Davis whom accepted the patient to his service. Recommends PT, cipro 500 mg bid, and nephrology consult. . 03/21 09:59 Order name: CBC with Diff; Complete Time: 11:23 [facility] 03/21 09:59 Order name: CMP; Complete Time: 12:35 [facility] 03/21 09:59 Order name: Lipase; Complete Time: 12:35 [facility] 03/21 10:01 Order name: COVID-19/FLU A+B; Complete Time: 11:23 [facility] 03/21 10:03 Order name: Stool Culture [facility] 03/21 10:03 Order name: CDIFF; Complete Time: 12:37 [facility] 03/21 18:56 Order name: CBC with Automated Diff; Complete Time: 19:01 EDTX 03/21 19:08 Order name: Basic Metabolic Panel; Complete Time: 19:09 EDMS 03/21 19:08 Order name: Phosphorus; Complete Time: 19:09 EDMS 03/21 19:08 Order name: Magnesium; Complete Time: 19:09 EDMS 03/21 19:08 Order name: Lipase; Complete Time: 19:09 EDMS 03/21 21:02 Order name: Glucose, Ancillary Testing EDTX 03/22 05:50 Order name: CBC with Automated Diff EDTX 03/22 06:25 Order name: CBC Smear Scan EDTX 03/21 09:59 Order name: CT Abd/Pelvis - Without Contrast; Complete Time: 10:44 [facility] 03/21 09:59 Order name: IV Saline Lock; Complete Time: 10:17 [facility] 03/21 09:59 Order name: Labs collected and sent; Complete Time: 10:17 [facility] 03/22 06:47 Order name: Comprehensive Metabolic Panel EDTX 03/22 07:50 Order name: Glucose, Ancillary Testing EDTX 03/22 08:29 Order name: Glucose, Ancillary Testing EDMS Administered Medications: 10:16 Drug: Zofran (Ondansetron) 4 mg Route: IVP; Site: right antecubital; jl7 11:00 Follow up: Response: No adverse reaction; Nausea is decreased jl7 14:58 Drug: Cipro (ciprofloxacin) 500 mg Route: PO; jl7 19:39 Follow up: Response: No adverse reaction jl7 Disposition Summary: 03/21/22 13:46 Hospitalization Ordered Hospitalization Status: Inpatient Admission jmm Provider: Hernesto Davis Condition: Stable jmm Problem: new jmm Symptoms: are unchanged jmm Bed/Room Type: Standard [facility] Location: Telemetry/MedSurg (Inpatient)(03/22/22 07:19) eb Room Assignment: [facility](03/22/22 07:19) eb Diagnosis - Hypokalemia jmm - Acute Colitis jmm - End-stage renal disease [facility] Forms: - Medication Reconciliation Form [facility] - SBAR form [facility] Signatures: Dispatcher [employer] Parmjit Leger PA PA jmm Smirch, Shelby, RN RN ss Krissy Lezama, RN RN cg Mike Holder RN RN jl7 Tisha Odell Corrections: (The following items were deleted from the chart) 13:12 09:59 Urine Dipstick-Ancillary ordered. [facility] jl7 : 13:46 Telemetry/MedSurg (Inpatient) [facility] : 13:46 [facility] 03/22 07:19 03/21 22:18 [facility] ER HOLD [facility] 03/22 07:19 03/21 22:18 ERHOLD- [facility]
[2022-03-21] MEDS ORDERED: ACETAMINOPHEN 500 MG TAB PO PRN (14:10)
[2022-03-21] MEDS ORDERED: ONDANSETRON 4 MG/2 ML VIAL IV PRN (14:10)
[2022-03-21] MEDS ORDERED: CIPROFLOXACIN HCL 500 MG TAB ONE (14:43)
[2022-03-21] MEDS ORDERED: POTASSIUM 25 MEQ EFFERV TAB PO ONE (15:21)
--- NOTE | 2022-03-21 15:25 | P.CNS ---
Date of Consult: 03/14/22 Reason for Consult: ESRD, hypokalemia Requesting Physician: Mannie Carbajal Chief Complaint: Diarrhea, weakness History of Present Illness: 55-year-old female with history of Parkinson's, ESRD on PD in the past but was then switched back to iHD via a TDC, hypertension with reports of possible CVA, a diagnosis of Parkinson's made within the past year with related or other significant weakness and with admission earlier this year for status epilepticus/other who has been in out of NH/rehab centers over the past few months. Pt discharged from this hospital to [facility] in [place] recently and was home for a week but came in due to on going diarrhea. She has had loose and freq BM/stools associated with some lower quadrant abd discomfort and some intermittent bloating, nausea. Pt has not missed HD and reports dialyzing yesterday. She has again gotten weaker and is not able to ambulate or transfer independently. Allergies CRAWFISH Allergy (Uncoded 06/14/21 11:42) Rash Home Medications: Apixaban [Eliquis *] 5 mg PO BID 10/01/21 Carbidopa/Levodopa [Carbidopa-Levodopa 25-100 Tab] 2 tab FT TID 10/01/21 Levetiracetam [Roweepra] 500 mg PO SEECOM 10/01/21 Metoprolol Tartrate 100 mg PO BID 10/01/21 Pravastatin [Pravachol*] 20 mg FT BEDTIME 10/01/21 Rotigotine [Neupro] 1 patch TD DAILY 10/01/21 Topiramate 50 mg PO Q12H 10/01/21 Valproic Acid (As Sodium Salt) [Valproic Acid] 20 ml FT TID 10/01/21 Amlodipine [Norvasc*] 1 tab PO DAILY 02/23/22 Spironolactone 25 mg PO DAILY 02/23/22 Trazodone [Desyrel*] 25 mg PO BEDTIME 02/23/22 - Past Medical/Surgical History Diabetic: No -: HTN -: Parkinson's -: Depression -: Pseudotumor cerebri -: No evidence of sleep apnea by sleep study -: ESRD/HD (Dr. Mcgarry) -: Anemia -: SEIZURE -: Hysterectomy -: Tubal -: Breast reduction -: TOTAL KNEE REPLACEMENT Psychosocial/ Personal History: Patient lives alone but has family come to check on her frequently - Family History Father Medical History: Hypertension, Diabetes, Stroke Mother Medical History: Hypertension, Diabetes SISTERS Medical History: Hypertension, Cancer Notes: PHLEBITIS, FEMALE CANCER - Social History Smoking Status: Unknown if ever smoked Alcohol use: No CD- Drugs: No Caffeine use: No Review of Systems General: Weakness Eyes: Unremarkable ENT: Unremarkable Respiratory: Unremarkable Cardiovascular: Unremarkable Gastrointestinal: Nausea, Abdominal Pain, Diarrhea Genitourinary: Unremarkable Musculoskeletal: Other (Weakness, generalized, unable to walk), As per HPI Integumentary: Unremarkable Neurological: Weakness, As per HPI Lymphatics: Unremarkable Physical Examination General: Alert, In no apparent distress, Cooperative HEENT: Atraumatic, Normocephalic, PERRLA Neck: Supple Respiratory: Clear to auscultation bilaterally, Normal air movement Cardiovascular: Regular rate/rhythm, Normal S1 S2 Gastrointestinal: Soft and benign, Non-distended, No tenderness Musculoskeletal: No swelling, No contractures, No erythema Integumentary: No rashes Neurological: Other (Awake, alert, oriented, no dysarthria but low speech tone, able to move all ext, generalized muscle weakness) Laboratory Data (last 24 hrs) 03/21/22 10:56: Sodium 140, Potassium 2.8 L*, BUN 36 H, Creatinine 7.10 H*, Glucose 99, Total Bilirubin 0.3, AST 9 L, ALT < 10 L, Alkaline Phosphatase 65, Lipase 97 03/21/22 10:56: WBC 6.90, Hgb 11.4 L, Hct 34.6 L, Plt Count 204 Conclusions/Impression: A/P) 1. ESRD on iHD via TDC, prev on PD, PD catheter removed. Last HD reportedly on Mon, no indication for HD this evening. 2. Hypokalemia in the setting of GI losses +/- reduced PO intake, other -will dose IV and PO KCL, will dialyze tmrw with higher K bath if appropriate 3. Diarrhea, unspecified. CT scan shows some evidence of colitis, has been in/out of facilities, screen for C diff and other. Cover with Flagyl if appropriate. 4. BP is not elevated, monitor 5. Anemia of CKD/inflammation -HCT higher than recently possible due to hemoconcentration 6. Parkinson's disease unspecified. Generalized muscle weakness -strength has worsened, obtain records from recent telemed visit she had with her OP Neurologist. Pt and family request placement in NH as they report she is unable to take care of herself at home. Will consult SEBAS Roman MD, BLAINE
[2022-03-21] MEDS ORDERED: KCL 20 MEQ/100 mL IVPB 20 MEQ/100 ML BAG IV SCH (16:00)
--- NOTE | 2022-03-21 17:25 | P.HP ---
Certification for Inpatient Patient admitted to: Observation With expected LOS: <2 Midnights Patient will require the following post-hospital care: Assisted Practitioner: I am a practitioner with admitting privileges, knowledge of patient current condition, hospital course, and medical plan of care. Services: Services provided to patient in accordance with Admission requirements found in Title 42 Section 412.3 of the Code of Federal Regulations Patient History Date of Service: 03/21/22 Primary Care Provider: Ryan Reason for admission: Diarrhea, weakness History of Present Illness: Patient is a office patient of [facility]. Has a history of esrd, and parkinsons. She was recently admitted and transfered to [facility] rehab. The patient states she was there for a few weeks. Has been having diarrhea since her discharge. She came in for this and was found to have hypokalemia. Her regular dialysis days are MWF. She is sitting in the ER. Have some soup her family brought her Allergies CRAWFISH Allergy (Uncoded 06/14/21 11:42) Rash Home Medications: Apixaban [Eliquis *] 5 mg PO BID 10/01/21 Carbidopa/Levodopa [Carbidopa-Levodopa 25-100 Tab] 2 tab FT TID 10/01/21 Levetiracetam [Roweepra] 500 mg PO SEECOM 10/01/21 Metoprolol Tartrate 100 mg PO BID 10/01/21 Pravastatin [Pravachol*] 20 mg FT BEDTIME 10/01/21 Rotigotine [Neupro] 1 patch TD DAILY 10/01/21 Topiramate 50 mg PO Q12H 10/01/21 Valproic Acid (As Sodium Salt) [Valproic Acid] 20 ml FT TID 10/01/21 Amlodipine [Norvasc*] 1 tab PO DAILY 02/23/22 Spironolactone 25 mg PO DAILY 02/23/22 Trazodone [Desyrel*] 25 mg PO BEDTIME 02/23/22 - Past Medical/Surgical History Diabetic: No -: HTN -: Parkinson's -: Depression -: Pseudotumor cerebri -: No evidence of sleep apnea by sleep study -: ESRD/HD (Dr. Mcgarry) -: Anemia -: SEIZURE -: Hysterectomy -: Tubal -: Breast reduction -: TOTAL KNEE REPLACEMENT Psychosocial/ Personal History: Patient lives alone but has family come to check on her frequently - Family History Father -: Hypertension, Diabetes, Stroke Mother -: Hypertension, Diabetes SISTERS -: Hypertension, Cancer Notes: PHLEBITIS, FEMALE CANCER - Social History Alcohol use: No CD- Drugs: No Caffeine use: No Review of Systems 10-point ROS is otherwise unremarkable Gastrointestinal: Diarrhea Physical Examination - Physical Exam General: Alert, In no apparent distress HEENT: Atraumatic, PERRLA, Mucous membr. moist/pink, EOMI, Sclerae nonicteric Neck: Supple, 2+ carotid pulse no bruit, No LAD, Without JVD or thyroid abnormality Respiratory: Clear to auscultation bilaterally, Normal air movement Cardiovascular: Regular rate/rhythm, Normal S1 S2 Gastrointestinal: Normal bowel sounds, No tenderness Musculoskeletal: No tenderness Integumentary: No rashes Neurological: Normal gait, Normal speech, Normal strength at 5/5 x4 extr, Normal tone, Normal affect Lymphatics: No axilla or inguinal lymphadenopathy - Studies Laboratory Data (last 24 hrs) 03/21/22 10:56: Sodium 140, Potassium 2.8 L*, BUN 36 H, Creatinine 7.10 H*, Glucose 99, Total Bilirubin 0.3, AST 9 L, ALT < 10 L, Alkaline Phosphatase 65, Lipase 97 03/21/22 10:56: WBC 6.90, Hgb 11.4 L, Hct 34.6 L, Plt Count 204 Assessment and Plan - Problems (Diagnosis) (1) Diarrhea Current Visit: Yes Status: Acute Plan: Will order stool studies to the patient. Start her on cipro. She is negative for c dif. 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 Roman manage her dialysis Discharge Plan: Home Plan to discharge in: 24 Hours - Advance Directives Does patient have a Living Will: No Does patient have a Durable POA for Healthcare: No - Code Status/Comfort Care Code Status Assessed: No Code Status: Full Code Physician Review: Patient Assessed, Agree with Above Assessment and Plan Critical Care: No Time Spent Managing Pts Care (In Minutes): 45
[2022-03-21] MEDS ORDERED: GLUCAGON 1 MG/VIAL IM PRN (17:28)
[2022-03-21] MEDS ORDERED: LEVETIRACETAM 750 MG PO SCH (17:30)
[2022-03-21] MEDS ORDERED: D10W 250 ML BAG IV PRN (17:53)
[2022-03-21 18:54] LABS: Absolute Lymphocytes (CBC) 3.1 K/uL (0.7-4.9); Hematocrit 38.3 % (36.0-45.0); Lymphocytes % 40.1 % (15.3-44.8); MCV 105.7 fL (80-100); MPV 7.7 fL (7.6-11.3); RBC Red Blood Cell Count 3.62 M/uL (3.86-4.86)
[2022-03-21 19:06] LABS: Magnesium 2.6 mg/dL (1.6-2.4); Phosphorus 5.2 mg/dL (2.5-4.9); Potassium 3.2 mmol/L (3.5-5.1)
[2022-03-21] MEDS ORDERED: APIXABAN 5 MG TABLET ONE (20:30)
[2022-03-21] MEDS ORDERED: METOPROLOL TAR 50 MG TAB ONE (20:30)
[2022-03-21] MEDS ORDERED: ATORVASTATIN 20 MG TAB ONE (20:30)
[2022-03-21] MEDS: ATORVASTATIN 10 MG TAB FT SCH (20:37)
[2022-03-21] MEDS: APIXABAN 5 MG TABLET PO SCH (20:37)
[2022-03-21] MEDS: METOPROLOL TAR 50 MG TAB PO SCH (20:38)
[2022-03-21] MEDS: INSULIN -REGULAR HUMAN 50 UNIT/0.5 ML ML SQ SCH (20:53)
[2022-03-21] MEDS ORDERED: HOME MED 1 EA UNK (Metoprolol Tartrate [Metoprolol Tartrate] 100 MG Tablet) PO SCH (21:00)
[2022-03-21] MEDS ORDERED: HOME MED 1 EA UNK (Pravastatin [Pravachol*] 40 MG/TAB Tab) FT SCH (21:00)
[2022-03-21] MEDS ORDERED: VALPROIC ACID 250 MG/5 ML OSYR FT SCH (21:00)
[2022-03-21] MEDS: CARBIDOPA/LEVODOPA 25/100 TAB FT SCH (21:00)
[2022-03-21] MEDS: TRAZODONE 50 MG TABLET PO SCH (21:00)
[2022-03-21] MEDS ORDERED: VALPROIC ACID 250 MG/5 ML FT SCH (21:00)
[2022-03-21] MEDS ORDERED: TRAZODONE 50 MG TABLET ONE (21:55)
[2022-03-22 05:43] LABS: Absolute Lymphocytes (CBC) 2.4 K/uL (0.7-4.9); Hematocrit 33.3 % (36.0-45.0); Lymphocytes % 43.3 % (15.3-44.8); MCV 105.6 fL (80-100); MPV 7.6 fL (7.6-11.3); RBC Red Blood Cell Count 3.15 M/uL (3.86-4.86)
[2022-03-22 06:25] LABS: Blood Morphology Comment NOTED (NOT SEEN); Macrocytosis 1+; Platelet Estimate ADEQ; White Blood Cell Scan OK (OK)
[2022-03-22 06:38] LABS: AST/SGOT 9 U/L (15-37); Albumin 2.4 g/dL (3.4-5.0); Alkaline Phosphatase 66 U/L (45-117); BUN Blood Urea Nitrogen 45 mg/dL (7-18); Bicarbonate 26 mmol/L (21-32); Bilirubin Total 0.5 mg/dL (0.2-1.0); Glomerular Filtration Rate 5 ml/min (=/>90); Glucose Level 77 mg/dL (74-106); Protein, Total 6.3 g/dL (6.4-8.2); Sodium Level 140 mmol/L (136-145)
[2022-03-22 06:43] LABS: ALT/SGPT < 10 U/L (13-56)
[2022-03-22 06:47] LABS: Potassium 2.9 mmol/L (3.5-5.1)
[2022-03-22] MEDS: INSULIN -REGULAR HUMAN 50 UNIT/0.5 ML ML SQ SCH ×4 (07:30→20:49)
[2022-03-22] MEDS ORDERED: D10W 250 ML IV ONE (07:50)
--- NOTE | 2022-03-22 08:12 | P.PN ---
Subjective Date of Service: 03/22/22 Primary Care Provider: Ryan Chief Complaint: Diarrhea, weakness Subjective: No new changes Review of Systems 10-point ROS is otherwise unremarkable Physical Examination - Vital Signs Temperature: 97.9 F Blood Pressure: 120/64 Pulse: 58 Respirations: 18 Pulse Ox (%): 97 - Physical Exam General: Alert, In no apparent distress HEENT: Atraumatic, PERRLA, EOMI Neck: Supple, JVD not distended Respiratory: Clear to auscultation bilaterally, Normal air movement Cardiovascular: Regular rate/rhythm, Normal S1 S2 Gastrointestinal: Normal bowel sounds, No tenderness Musculoskeletal: No tenderness Integumentary: No rashes Neurological: Normal speech, Normal tone, Normal affect Lymphatics: No axilla or inguinal lymphadenopathy - Studies Laboratory Data (last 24 hrs) 03/21/22 10:56: Sodium 140, Potassium 2.8 L*, BUN 36 H, Creatinine 7.10 H*, Glucose 99, Total Bilirubin 0.3, AST 9 L, ALT < 10 L, Alkaline Phosphatase 65, Lipase 97 03/21/22 10:56: WBC 6.90, Hgb 11.4 L, Hct 34.6 L, Plt Count 204 Assessment And Plan - Current Problems (Diagnosis) (1) Diarrhea Current Visit: Yes Status: Acute Plan: Will order stool studies to the patient. Start her on cipro. She is negative for c dif. Will consider lomotil 03/22 no diarrhea for 12 hours. Will feed her. She was made NPO by nursing staff. Don't know the reason for this. She was eating when I examined her yesterday with no discomfort Qualifiers: Diarrhea type: unspecified type Qualified Code(s): R19.7 - Diarrhea, unspecified (2) Hypokalemia Current Visit: Yes Status: Acute Plan: replacement per nephrology 03/22 She is still low today. Will start her on the potassium replacement protochol (3) Diabetes Current Visit: No Status: Acute Plan: restart her home medications with low dose sliding scale Qualifiers: Diabetes mellitus type: type 2 Diabetes mellitus fci insulin use: without terminal carman use Diabetes mellitus complication status: without complication Qualified Code(s): E11.9 - Type 2 diabetes mellitus without complications (4) ESRD (end stage renal disease) Current Visit: No Status: Acute Plan: will have Dr. Roman manage her dialysis (5) Parkinsons disease Current Visit: No Status: Acute Plan: She is willing to go into a facility for placement Discharge Plan: Home Plan to discharge in: 24 Hours - Code Status/Comfort Care Code Status Assessed: No Physician Review: Patient Assessed, Agree with Above Assessment and Plan Critical Care: No Time Spent Managing PTS Care (In Minutes): 20
[2022-03-22] MEDS: AMLODIPINE 5 MG TAB PO SCH (09:00)
[2022-03-22] MEDS: ROTIGOTINE TOP SCH (09:00)
[2022-03-22] MEDS: CARBIDOPA/LEVODOPA 25/100 TAB FT SCH ×3 (09:00→20:48)
[2022-03-22] MEDS: APIXABAN 5 MG TABLET PO SCH ×2 (09:00→20:49)
[2022-03-22] MEDS: METOPROLOL TAR 50 MG TAB PO SCH ×2 (09:00→20:49)
[2022-03-22 09:57] VITALS: BMI 28.3
[2022-03-22] MEDS ORDERED: NA CHLORIDE 0.9% 250 ML ONE ×2 (10:51→20:45)
[2022-03-22] MEDS ORDERED: KCL 20 MEQ/100 mL IVPB 20 MEQ/100 ML BAG IV SCH ×2 (12:00→21:00)
--- NOTE | 2022-03-22 12:56 | P.PN ---
Nephrology note (S) Pt seen on HD, tolerating session, no acute complaints Physical Examination General: Alert, In no apparent distress, Cooperative HEENT: Atraumatic, Normocephalic, PERRLA Neck: Supple Respiratory: Clear to auscultation bilaterally, Normal air movement Cardiovascular: Regular rate/rhythm, Normal S1 S2 Gastrointestinal: Soft and benign, Non-distended, No tenderness Musculoskeletal: No swelling, No contractures, No erythema Integumentary: No rashes Neurological: Other (Awake, alert, oriented, no dysarthria but low speech tone, able to move all ext, generalized muscle weakness) Laboratory Data (last 24 hrs) Reviewed Conclusions/Impression: A/P) 1. ESRD on iHD via TDC, prev on PD, PD catheter removed. HD today per OP schedule. 2. Hypokalemia in the setting of GI losses +/- reduced PO intake, other -HD today with higher K bath, received IV KCL this AM, recheck level 2h post HD 3. Diarrhea, unspecified. CT scan shows some evidence of colitis, has been in/out of facilities, screen for C diff and other. Cover with Flagyl if appropriate. 4. BP is not elevated, monitor 5. Anemia of CKD/inflammation -HCT higher than recently possible due to hemoconcentration 6. Parkinson's disease unspecified. Generalized muscle weakness -strength has worsened, obtain records from recent telemed visit she had with her OP Neurologist. Pt and family request placement in [place] as they report she is unable to take care of herself at home. Did consult CM Ruben Roman MD, BLAINE
[2022-03-22] MEDS ORDERED: INFLUENZA VACCINE (for 6+ mo) 0.5 ML DOSE IMVAC ONE (13:00)
[2022-03-22] MEDS: ATORVASTATIN 10 MG TAB FT SCH (20:48)
[2022-03-22] MEDS: TRAZODONE 50 MG TABLET PO SCH (20:49)
[2022-03-22] MEDS: NEPRO SHAKE 237 ML CAN PO SCH (20:49)
[2022-03-23 05:10] VITALS: O2SAT 99
[2022-03-23 06:22] LABS: Absolute Lymphocytes (CBC) 2.3 K/uL (0.7-4.9); Hematocrit 30.1 % (36.0-45.0); Lymphocytes % 49.3 % (15.3-44.8); MCV 106.7 fL (80-100); MPV 8.2 fL (7.6-11.3); RBC Red Blood Cell Count 2.82 M/uL (3.86-4.86)
[2022-03-23 06:34] LABS: ALT/SGPT < 10 U/L (13-56); AST/SGOT 21 U/L (15-37); Albumin 2.1 g/dL (3.4-5.0); Alkaline Phosphatase 54 U/L (45-117); BUN Blood Urea Nitrogen 28 mg/dL (7-18); Bicarbonate 27 mmol/L (21-32); Bilirubin Total 0.4 mg/dL (0.2-1.0); Glomerular Filtration Rate 8 ml/min (=/>90); Glucose Level 88 mg/dL (74-106); Potassium 3.7 mmol/L (3.5-5.1); Protein, Total 5.7 g/dL (6.4-8.2); Sodium Level 142 mmol/L (136-145)
[2022-03-23 07:03] LABS: Anisocytosis 1+; Blood Morphology Comment NOTED (NOT SEEN); Macrocytosis 1+; White Blood Cell Scan OK (OK)
[2022-03-23 07:09] LABS: Platelet Estimate ADEQ
[2022-03-23] MEDS: INSULIN -REGULAR HUMAN 50 UNIT/0.5 ML ML SQ SCH ×4 (07:30→21:00)
[2022-03-23] MEDS: ROTIGOTINE TOP SCH (08:41)
[2022-03-23] MEDS: NEPRO SHAKE 237 ML CAN PO SCH ×2 (09:00→21:58)
[2022-03-23] MEDS: AMLODIPINE 5 MG TAB PO SCH (09:00)
[2022-03-23] MEDS: METOPROLOL TAR 50 MG TAB PO SCH ×2 (09:00→21:55)
[2022-03-23] MEDS: APIXABAN 5 MG TABLET PO SCH ×2 (09:00→21:55)
[2022-03-23] MEDS: CARBIDOPA/LEVODOPA 25/100 TAB FT SCH ×3 (09:00→21:54)
--- NOTE | 2022-03-23 10:41 | P.PN ---
Nephrology note (S) Pt's K level better, diarrhea improved, pt reports hyperactive BS, no sig abd discomfort. Physical Examination General: Alert, In no apparent distress, Cooperative HEENT: Atraumatic, Normocephalic, PERRLA Neck: Supple Respiratory: Clear to auscultation bilaterally, Normal air movement Cardiovascular: Regular rate/rhythm, Normal S1 S2 Gastrointestinal: Soft and benign, Non-distended, No tenderness Musculoskeletal: No swelling, No contractures, No erythema Integumentary: No rashes Neurological: Other (Awake, alert, oriented, no dysarthria but low speech tone, able to move all ext, generalized muscle weakness) Laboratory Data (last 24 hrs) Reviewed Conclusions/Impression: A/P) 1. ESRD on iHD via TDC, prev on PD, PD catheter removed. HD performed yesteday per OP schedule. 2. Hypokalemia in the setting of GI losses +/- reduced PO intake, other -HD yesterday with higher K bath, s/p IV KCL doses, K now > 3.5 3. Diarrhea, unspecified. CT scan shows some evidence of colitis, has been in/out of facilities, screen for C diff and other. Cover with Flagyl if appropriate. 4. BP is not elevated, monitor 5. Anemia of CKD/inflammation -HCT higher than recently possible due to hemoconcentration 6. Parkinson's disease unspecified. Generalized muscle weakness -strength has worsened, obtain records from recent telemed visit she had with her OP Neurologist. Pt and family request placement in [place] as they report she is unable to take care of herself at home. Did consult CM, pending placement in [place] Ruben Roman MD, BLAINE
--- NOTE | 2022-03-23 10:54 | P.PN ---
Subjective Date of Service: 03/23/22 Primary Care Provider: Ryan Chief Complaint: Diarrhea, weakness Subjective: No new changes Review of Systems 10-point ROS is otherwise unremarkable Physical Examination - Vital Signs Temperature: 98.0 F Blood Pressure: 113/58 Pulse: 56 Respirations: 16 Pulse Ox (%): 99 - Physical Exam General: Alert, In no apparent distress HEENT: Atraumatic, PERRLA, EOMI Neck: Supple, JVD not distended Respiratory: Clear to auscultation bilaterally, Normal air movement Cardiovascular: Regular rate/rhythm, Normal S1 S2 Gastrointestinal: Normal bowel sounds, No tenderness Musculoskeletal: No tenderness Integumentary: No rashes Neurological: Normal speech, Normal tone, Normal affect Lymphatics: No axilla or inguinal lymphadenopathy - Studies Microbiology Data (last 24 hrs): 03/21/22 11:26 Stool Culture & Sensitivity - Final Assessment And Plan - Current Problems (Diagnosis) (1) Diabetes Current Visit: No Status: Acute Plan: restart her home medications with low dose sliding scale Qualifiers: Diabetes mellitus type: type 2 Diabetes mellitus [employer] insulin use: without residential use Diabetes mellitus complication status: without complication Qualified Code(s): E11.9 - Type 2 diabetes mellitus without complications (2) ESRD (end stage renal disease) Current Visit: No Status: Acute Plan: will have Dr. Roman manage her dialysis (3) Parkinsons disease Current Visit: No Status: Acute Plan: She is willing to go into a facility for placement 03.23 awaiting placement. She would like to go to a retirement in [place]. Have discussed with social psychologist. Possible transfer tomorrow (4) Diarrhea Current Visit: Yes Status: Resolved Plan: Will order stool studies to the patient. Start her on cipro. She is negative for c dif. Will consider lomotil 03/23 soft stools. No diarrhea Qualifiers: Diarrhea type: unspecified type Qualified Code(s): R19.7 - Diarrhea, unspecified (5) Hypokalemia Current Visit: Yes Status: Resolved Plan: replacement per nephrology 03/22 She is still low today. Will start her on the potassium replacement protochol Discharge Plan: Correction Plan to discharge in: 24 Hours - Code Status/Comfort Care Code Status Assessed: No Physician Review: Patient Assessed, Agree with Above Assessment and Plan Critical Care: No Time Spent Managing PTS Care (In Minutes): 20
[2022-03-23] MEDS ORDERED: INFLUENZA VACCINE (for 6+ mo) 0.5 ML DOSE IMVAC ONE (14:00)
[2022-03-23] MEDS: ATORVASTATIN 10 MG TAB FT SCH (21:54)
[2022-03-23] MEDS: TRAZODONE 50 MG TABLET PO SCH (21:55)
[2022-03-24 06:15] LABS: Absolute Lymphocytes (CBC) 2.5 K/uL (0.7-4.9); Hematocrit 29.5 % (36.0-45.0); Lymphocytes % 50.2 % (15.3-44.8); MCV 106.2 fL (80-100); MPV 8.2 fL (7.6-11.3); RBC Red Blood Cell Count 2.78 M/uL (3.86-4.86)
[2022-03-24 06:39] LABS: AST/SGOT 53 U/L (15-37); Albumin 2.1 g/dL (3.4-5.0); Alkaline Phosphatase 71 U/L (45-117); BUN Blood Urea Nitrogen 39 mg/dL (7-18); Bicarbonate 25 mmol/L (21-32); Bilirubin Total 0.3 mg/dL (0.2-1.0); Glomerular Filtration Rate 5 ml/min (=/>90); Glucose Level 84 mg/dL (74-106); Potassium 4.6 mmol/L (3.5-5.1); Protein, Total 5.5 g/dL (6.4-8.2); Sodium Level 140 mmol/L (136-145)
[2022-03-24 06:54] LABS: ALT/SGPT < 10 U/L (13-56)
[2022-03-24] MEDS: INSULIN -REGULAR HUMAN 50 UNIT/0.5 ML ML SQ SCH ×3 (07:30→16:30)
[2022-03-24] MEDS: CARBIDOPA/LEVODOPA 25/100 TAB FT SCH ×2 (08:38→14:11)
[2022-03-24] MEDS: APIXABAN 5 MG TABLET PO SCH (08:38)
[2022-03-24] MEDS: METOPROLOL TAR 50 MG TAB PO SCH (08:39)
[2022-03-24] MEDS: AMLODIPINE 5 MG TAB PO SCH (08:39)
[2022-03-24] MEDS: NEPRO SHAKE 237 ML CAN PO SCH (08:40)
[2022-03-24] MEDS: ROTIGOTINE TOP SCH (08:41)
--- NOTE | 2022-03-24 08:49 | P.DS ---
Admission Date: 03/21/22 Discharge Date: 03/24/22 Primary Care Provider: Ryan Disposition: TRANSFER TO [facility] Discharge Condition: GOOD Reason for Admission: Diarrhea, weakness - Problems (1) Diabetes Current Visit: No Status: Acute Qualifiers: Diabetes mellitus type: type 2 Diabetes mellitus fdc insulin use: without fdc use Diabetes mellitus complication status: without complication Qualified Code(s): E11.9 - Type 2 diabetes mellitus without complications (2) ESRD (end stage renal disease) Current Visit: No Status: Acute (3) Parkinsons disease Current Visit: No Status: Acute (4) Diarrhea Current Visit: Yes Status: Resolved Qualifiers: Diarrhea type: unspecified type Qualified Code(s): R19.7 - Diarrhea, unspecified (5) Hypokalemia Current Visit: Yes Status: Resolved Brief History of Present Illness: Patient is a office patient of [facility]. Has a history of esrd, and parkinsons. She was recently admitted and transfered to [facility] rehab. The patient states she was there for a few weeks. Has been having diarrhea since her discharge. She came in for this and was found to have hypokalemia. Her regular dialysis days are MWF. She is sitting in the ER. Have some soup her family brought her Hospital Course: Patient came into the hospital complainting of diarrhea. She did well with cipro. She is still very weak. This is due to the Parkinson's. She agreed to go to a nursing facility. Wishes one in [place] so she can be close to family. Wish her the best of luck. Thank you for allowing me to be a part of her care. Vital Signs/Physical Exam: Temp Pulse Resp BP Pulse Ox 98.0 F 56 14 127/60 99 03/24/22 08:00 03/24/22 08:00 03/24/22 08:00 03/24/22 08:00 03/24/22 08:00 General: Alert, In no apparent distress HEENT: Atraumatic, PERRLA, EOMI Neck: Supple, JVD not distended Respiratory: Clear to auscultation bilaterally, Normal air movement Cardiovascular: Regular rate/rhythm, Normal S1 S2 Gastrointestinal: Normal bowel sounds, No tenderness Musculoskeletal: No tenderness Integumentary: No rashes Neurological: Normal speech, Normal tone, Normal affect Lymphatics: No axilla or inguinal lymphadenopathy Laboratory Data at Discharge: WBC 4.90 K/uL (4.3-10.9) 03/24/22 06:03 Hgb 9.7 g/dL (12.0-15.0) L 03/24/22 06:03 Hct 29.5 % (36.0-45.0) L 03/24/22 06:03 Plt Count 229 K/uL (152-406) 03/24/22 06:03 Sodium 140 mmol/L (136-145) 03/24/22 06:03 Potassium 4.6 mmol/L (3.5-5.1) D 03/24/22 06:03 BUN 39 mg/dL (7-18) H 03/24/22 06:03 Creatinine 7.88 mg/dL (0.55-1.02) H* 03/24/22 06:03 Glucose 84 mg/dL (74-106) 03/24/22 06:03 Phosphorus 5.2 mg/dL (2.5-4.9) H 03/21/22 18:38 Magnesium 2.6 mg/dL (1.6-2.4) H 03/21/22 18:38 Total Bilirubin 0.3 mg/dL (0.2-1.0) 03/24/22 06:03 AST 53 U/L (15-37) H 03/24/22 06:03 ALT < 10 U/L (13-56) L 03/24/22 06:03 Alkaline Phosphatase 71 U/L (45-117) D 03/24/22 06:03 Lipase 107 U/L (73-393) 03/21/22 18:38 Home Medications: Apixaban [Eliquis *] 5 mg PO BID 10/01/21 Carbidopa/Levodopa [Carbidopa-Levodopa 25-100 Tab] 2 tab FT TID 10/01/21 Levetiracetam [Roweepra] 500 mg PO SEECOM 10/01/21 Metoprolol Tartrate 100 mg PO BID 10/01/21 Pravastatin [Pravachol*] 20 mg FT BEDTIME 10/01/21 Rotigotine [Neupro] 1 patch TD DAILY 10/01/21 Topiramate 50 mg PO Q12H 10/01/21 Valproic Acid (As Sodium Salt) [Valproic Acid] 20 ml FT TID 10/01/21 Amlodipine [Norvasc*] 1 tab PO DAILY 02/23/22 Spironolactone 25 mg PO DAILY 02/23/22 Trazodone [Desyrel*] 25 mg PO BEDTIME 02/23/22 Diet: Renal Activity: Fall precautions Followup: Hernesto Davis MD [Primary Care Provider] - Physician Review: Patient Assessed, Agree with Above Assessment and Plan Time spent managing pt's care (in minutes): 30
[2022-03-24] MEDS ORDERED: EPOETIN ALFA-EPBX 10,000 UNIT/ML VIAL SQ SCH (09:00)
--- NOTE | 2022-03-24 09:54 | P.PN ---
Nephrology note (S) Pt's K level better, diarrhea improved, pt awaiting NH placement Physical Examination General: Alert, In no apparent distress, Cooperative HEENT: Atraumatic, Normocephalic, PERRLA Neck: Supple Respiratory: Clear to auscultation bilaterally, Normal air movement Cardiovascular: Regular rate/rhythm, Normal S1 S2 Gastrointestinal: Soft and benign, Non-distended, No tenderness Musculoskeletal: No swelling, No contractures, No erythema Integumentary: No rashes Neurological: Other (Awake, alert, oriented, no dysarthria but low speech tone, able to move all ext, generalized muscle weakness) Laboratory Data (last 24 hrs) Reviewed Conclusions/Impression: A/P) 1. ESRD on iHD via TDC, prev on PD, PD catheter removed. HD today per OP schedule. 2. Hypokalemia in the setting of GI losses +/- reduced PO intake, other - resolved now 3. Diarrhea, unspecified. CT scan showed some evidence of colitis, has been in/out of facilities, unclear if screened for C diff and other.Stool culture neg for other pathogens 4. BP typically not elevated, monitor 5. Anemia of CKD/inflammation -H/H has trended a bit lower, maintenance KARLA dose today 6. Parkinson's disease unspecified. Generalized muscle weakness -strength has worsened, obtain records from recent telemed visit she had with her OP Neurologist. Pt and family request placement in [place] as they report she is unable to take care of herself at home. Did consult CM, pending placement in [place] Ruben Roman MD, BLAINE
[2022-03-24 13:05] VITALS: BP 156/58; TEMP 97.9
== END 2022-03-24 18:01 | DRG 391 ==
LOC: ER 09:38 → ERHOLD 14:09 → 2ND 03-22 08:58
PROVIDERS: ADMIT Internal Medicine; ATTEND Internal Medicine
DX: K52.9 Noninfective gastroenteritis and colitis, unspecified (principal); N18.6 End stage renal disease; I12.0 Hypertensive chronic kidney disease with stage 5 chronic kidney disease or end stage renal disease; D63.1 Anemia in chronic kidney disease; E11.22 Type 2 diabetes mellitus with diabetic chronic kidney disease; Z99.2 Dependence on renal dialysis; G20 Parkinson's disease; E87.6 Hypokalemia; Z20.822 Contact with and (suspected) exposure to COVID-19
CPT/HCPCS: 0240U; 36415; 74176; 80048; 80053; 82947; 83690; 83735; 84100; 84132; 85025; 87045; 87046; 87324; 90935; 96374; 97112; 97116; 97161; 97530; 99285; J1644; J3480; J7050; Q5106

== ENCOUNTER 2022-09-29 11:44 | Emergency (ER) | payer OTHER ==
--- NOTE | 2022-09-29 12:16 | RAD REPORT ---
EXAM DESCRIPTION: RAD - Chest Single View - 09/29/2022 12:09 pm CLINICAL HISTORY: AMS COMPARISON: Chest Single View dated 02/13/2022; Chest Single View dated 02/10/2022; Chest Single Vie w dated 09/30/2021; Chest Single View dated 08/10/2021 FINDINGS: Lines: Right IJ approach dialysis catheter with tip overlying the superior cavoatrial junc tion. Lungs: No evidence of edema or pneumonia. Pleural: No significant pleural effusions or pneumothorax. Cardiac: The heart size is within normal limits. Mediastinum: Within normal limits. Bones: No acute fractures. Remote right proximal humerus fracture. Other: None IMPRESSION: No acute cardiopulmonary disease.
[2022-09-29 12:20] LABS: Absolute Lymphocytes (CBC) 2.1 K/uL (0.7-4.9); Hematocrit 40.1 % (36.0-45.0); Lymphocytes % 60.7 % (15.3-44.8); MCV 109.3 fL (80-100); MPV 9.6 fL (7.6-11.3); RBC Red Blood Cell Count 3.67 M/uL (3.86-4.86)
--- OUTSIDE RECORDS SUMMARY | 2022-09-29 12:20 | XMS REPORT | Continuity of Care Document ---
:1965 Author Organization [facility] t Address [address] [place] [address] [address] [place] [address] Care Team Providers Name Role Phone SJ DOYLE Bolanos Primary Care Physician Unavailable Royce Jay Anavella Attending Clinician Unava ilable [id number] Attending Clinician Unavailable RIAZ BAIG Attending Clinician Unavailable JOSE MAGALLANES Attending Clinician Unavailable Jose Rey Attending Clinician Unavailable ISAAC MEEHAN Attending Clinician Unavailable KASEY WHITT Attending Clinician Unavailable Kasey Whitt Attending Clinician Pradeep Bermeo DO Attending Clinician Duglas MCKEON, Gail Avalos Attending Clinician [phone] CLARA ADAMS Attending Clinician Unavailable Marva Adams Attending Clinician Juarez Morales Attending Clinician JUAREZ MORALES Attending Clinician Unavailable DIMITRY LORA Attending Clinician Unavailable Dimitry Lora Attending Clinician CHARLES TORRES Attending Clinician Unavailable Jann MCKEON, Gallito Mccarthy Attending Clinician [phone] [facility]_J Attending Clinician Unavailable Estelle Schneider Attending Clinician [phone] Sergio Fuentes Attending Clinician [phone] ARUN SUERO Attending Clinician Unavailable BRETT SAHH Attending Clinician Unavailable Moises MCKEON, Ramin Piedra Attending Clinician Unavailable Elmer Acevedo MD, Vangie Aldridge Attending Clinici an Ilya MCKEON, Wilmer Kothari Attending Clinician [phone] Deja MCKEON, Irlanda Mayen Attending Clinician [phone] Kellie MCKEON, Kashmir Attending Clinician Pablo MCKEON, Brett Shay Attending Clinician [phone] Raul MCKEON, Wendy David Attending Clinician [phone] Juan Carlos MCKEON, Kiarra Attending Clinician Chen Dsouza CRNA Attending Clinician Adalgisa MCKEON, Dl Attending Clinician Nancy MCKEON, Jacques Maradiaga Attending Clinician Bronson Michel CRNA Attending Clinician [phone] Zoran MCKEON, Isaac Staples Attending Clinician Eyal OCHOA, Angel Attending Clinician Unavailable Jessa OCHOA, Heather Attending Clinician Unavailable Chrissie Spence RN Attending Clinician Unavailable Dianelys Mitchell RN Attending Clinician Unavailable Vilma Galdamez Attending Clinician VILMA GALDAMEZ Attending Clinician Unavailable Doctor Unassigned, Tancred Attending Clinician Unavailable Brown Lees MD Attending Clinician Daiana Osullivan MD Attending Clinician NICOL GALAN Attending Clinician Unavailable RANDOLPH NOGUEIRA Attending Clinician Unavailable MATHEW CRUM Attending Clinician Unavailable Trish Jay Anav Admitting Clinician Unavailable [id number] Admitting Clinician Unavailable RIAZ BAIG Admitting Clinician Unavailable ISAAC MEEHAN Admitting Clinician Unavailable GAIL CUNHA Admitting Clinician Unavailable SUHAS BLOCK Admitting Clinician Unavailable Suhas Block Admitting Clinician _[facility]_Ricky Admitting Clinician Unavailable RAMIN DE LEON Admitting Clinician Unavailable LOBO LIANG Admitting Clinician Unavailable AHSAN VARGAS Admitting Clinician Unavailable RANDOLPH NOGUEIRA Admitting Clinician Unavailable Payers Payer Name Policy Type Policy Number Effective Date Expiration Date S isidro [facility] WELLMED [id number] 2022 00:00:00 [facility] [id number] WELLMED MEDICARE [id number] 2021 00:00:00 [place]ID [place] [id number] 2017 2017 00:00:00 00:00:00 [facility] [id number] [employer] [place] [id number] 2017 MCR REPL 00:00:00 [facility] - [id number] [facility] (MEDICARE REPLACEMENT/ADVAN TAGE - PPO) [place] [id number] (MEDICAID) [facility] [id number] 2018 [employer] 00:00:00 [facility] Problems Condition Condition Condition Status Onset Resolution Last Treating Co mments Source Name Details Category Date Date Treatment Clinician Date Hematoma Hematoma Diagnosis Active 2022-07-18 Memoria of left of left 07-15 01:39:17 l lower leg lower leg 00:00: Herm shelli Active 00 07/15/2022 Diagnosis 07/18/2022 [facility] Traumatic Traumatic Diagnosis Active 2022-07-18 Memoria hematoma hematoma 07-15 01:39:17 l (disorder) (disorder) 00:00: He rmann Active 00 07/15/2022 Diagnosis 07/18/2022 [facility] LEFT LOWER LEFT Diagnosis Active 2022-07-20 Memoria LEG PAIN LOWER LEG 07-15 21:56:00 l PAIN 00:00: [place] Active 00 07/15/2022 [facility] TIA TIA Disease Active [facility] (transient (transient 06-14 st ischemic ischemic 00:00: Hospit a attack) attack) 00 l HBP HBP Diagnosis Active 2022-06-06 Mem oria Active 06-06 18:15:00 l 06/06/2022 13:30: Juan Manuel ware [place] 00 [place] End stage End stage Diagnosis Active 2022-06-09 Memoria renal renal 06-06 05:09:41 l failure on failure on 00:00: He ann dialysis dialysis 00 (disorder) (disorder) Active 06/06/2022 Diagnosis 06/09/2022 [facility] SEIZURE SEIZURE Diagnosis Active 2022-03-28 Memoria Active 03-28 19:15:00 l 03/28/2022 00:00: Juan Manuel ware [place] 00 [place] NEUROLOGIC NEUROLOGI Diagnosis Active 2021-032022-07-12 Memoria DEFICUIT C DEFICUIT 05-01 07:56:00 l DUE TO DUE TO 00:00: [place] ACUTE ACUTE 00 ISCHEMI ISCHEMI Active 02/28/2022 [facility] POSS POSS Diagnosis Active 2021-032022-02-28 Mem oria STROKE STROKE 05-01 13:24:00 l Active 00:00: [place] 02/28/[address] [place] [address] Type II Type II Problem Active [facility] [...] Abnormal Problem Active [facility] a weight Weight 10-19 Medical loss Loss 00:00: 00 Secondary Secondary [...] to 00:00: diabetes Diabetes 00 mellitus Mellitus Clostridio Clostridio Disease Recurre [facility] n[facility]06 [facility] difficile difficile 00:00: Medi kurt diarrhea diarrhea 00 Center Respirator Respirator Disease Active [facility] y failure y failure 5-30 Luke s with with 00:00: Medical hypoxia hypoxia 00 Center and and hypercapni hypercapni a a Hypotensio Hypotensio Disease Active [facility] n n 5-28 [facility] 00:00: Medical 00 Center Status Status Disease Recurre [facility] epilepticu epilepticu nce 5-27 Poly kes s s 00:00: Medical 00 [place] Syncope Syncope Disease Active [facility]19 [facility] 00:00: Medical [place] Nausea and Nausea and Disease Active U T vomiting vomiting 5-10 Health 00:00: 00 Oropharyng Oropharyng Disease Active U T eal eal 2- [facility] dysphagia dysphagia 00:00: 00 Parkinson' Parkinson' Disease Recurre [facility] s disease s disease nce 5-15 Luke s 00:00: Medical 00 [place] Dysphagia Dysphagia Disease Active [facility] 00:00: Medical 00 [place] Peritoneal Peritoneal Disease Recurre [facility] dialysis dialysis nce 5-14 [facility] catheter catheter 00:00: Medica l dysfunctio dysfunctio 00 Ce nter n, initial n, initial encounter encounter G21.9 - G21.9 - Diagnosis Active 2019-032020-03-10 Memoria SECONDARY SECONDARY 2-16 17:16:00 l PARKINSONI PARKINSONI 00:01: He rmann SM, UNSPEC SM, UNSPEC 00 Active 03/10/2020 [facility] [place] Basal Basal Disease Recurre Last [facility] ganglia ganglia nce 8-11 Assessmen Polyjelly degenerati degenerati 00:00: t & Plan: Medical on on [facility] g of this note might be [...] during our visit today. DM DM Disease Recurre Last [facility] (diabetes (diabetes nce 8-11 Assessmen L ukes mellitus) mellitus) 00:00: t & Plan: M edical [facility] g of this note might be different from the original. She will require strict blood glucose control . Obesity Obesity Disease Active Last [facility]11 [facility] 00:00: t & Plan: Medical 00 [facility] g of this note might be different from the original. Current BMI is 34.9 which is acceptabl e for transplan t. We encourage d her to continue to increase physical activity as tolerated to aid with weight loss. Acute Acute Disease Active [facility] encephalop encephalop 8-05 Poly kes athy athy 00:00: Medical 00 Center TIA TIA Disease Active [facility] (transient (transient 5-27 Poly kes ischemic ischemic 00:00: Medica l attack) attack) 00 Center Slurred Slurred Disease Active [facility] speech speech 5-26 [facility] 00:00: Medical 00 Center ESRD (end ESRD (end Disease Active 2017-[address] stage stage 0-23 [facility] renal renal 00:00: t & Plan: Medical disease) disease) 00 [facility] [address] g of this note might be different from the original. 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 She has been on dialysis since 2017. She does have a potential donor at this time. ESRD (end ESRD (end Disease Recurre 2017-[address] stage stage nce 0-23 [facility] renal renal 00:00: t & Plan: Medical disease) disease) 00 [facility] Krista [facility] on on g of this dialysis dialysis note might be different from the original. 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 She has been on dialysis since 2017. She does have a potential donor at this time. Pre-transp Pre-transp Disease Active 2017-[address] lant lant 0-23 [facility] evaluation evaluation 00:00: t & Plan: Medical for for 00 [facility] chronic chronic g of this kidney kidney note disease disease might be different from the original. She is an acceptabl e candidate for kidney transplan t pending further testing and formal review at B. Malfunctio Malfunctio Disease Active 2016-03 Overview : Univers n of n of 1-07 Added ity of arterioven arterioven 00:00: automatic [place] ous graft, ous graft, 00 ally from Medical subsequent subsequent request B ran encounter encounter for surgery [id number] Morbid Morbid Disease Active 2016-03 Univers obesity obesity 0-16 ity of with body with body 00:00[place] mass index mass index 00 Me dical of of Branch 40.0-49.9 40.0-49.9 Thrombosis Thrombosis Disease Active 2016-03 Overview : Univers of kidney of kidney Added ity of dialysis dialysis 00:00: automatic Red as arterioven arterioven 00 ally from Medical ous graft, ous graft, request B ranch initial initial for encounter encounter surgery [id number] CKD CKD Disease Active Timmy (chronic (chronic 07-18 Health kidney kidney 00:00: disease) disease) 00 Major Major Disease Active [facility] depressive depressive 11-20 He alth disorder, disorder, 00:00: recurrent recurrent 00 episode, episode, unspecifie unspecifie d d Localized Localized Disease Active 2009-03 [facility] osteoarthr osteoarthr 05-01 He alth osis not osis not 00:00: specified specified 00 whether whether primary or primary or secondary, secondary, pelvic pelvic region and region and thigh thigh Localized Localized Disease Active Overview: [place] osteoarthr osteoarthr 11-01 [facility] osis not osis not 00:00: g of this specified specified 00 note whether whether might be primary or primary or different secondary, secondary, from the lower leg lower leg original. Replaced inactive or deprecate d diagnosis from regulator y IMO import. 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 Replaced inactive or deprecate d diagnosis from regulator y IMO import. Type II or Type II or Disease [...] d 00:00: 00 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[facility] hyperchole hyperchole 06-28 He alth sterolemia sterolemia 00:00: 00 Unspecifie Unspecifie Disease Active Overview : [facility] d venous d venous 06-28 [facility] (periphera (periphera 00:00: g of this l) l) 00 note insufficie insufficie might be ncy ncy different from the original. Replaced inactive or deprecate d diagnosis from regulator y IMO import. Screening Screening Disease Active Overview: [place] 06-28 [facility] 00:00: g of this 00 note might be different from the original. Replaced inactive or deprecate d diagnosis from regulator y IMO import. Allergic Allergic Disease Active Overview: Vizcaino rris rhinitis, rhinitis, 06-28 [facility] ealth cause cause 00:00: g of this unspecifie unspecifie 00 note d d might be different from the original. Replaced inactive or deprecate d diagnosis from regulator y IMO import. Lumbago Lumbago Disease Active [facility] 06-28 Health 00:00: 00 Depression Depression Disease Active H arr 06-15 Health 00:00: 00 Anemia in Anemia in Problem Active Zeynep via chronic Chronic Medical kidney Kidney disease Disease 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 Degenerati on with on with calcificat Calcificat ion ion Hemodialys Hemodialys Problem Active P rivia is-associa is-associa Me dical sally sally hypotensio Hypotensio n n Anemia Anemia Problem Active 2022-03-31 Enrrique devang (disorder) (disorder) 22:23:48 l Active [place] Problem 03/31/2022 [facility] Anxiety Anxiety Problem Active 2022-03-31 Me moria (finding) (finding) 22:23:48 l Active [place] Problem 03/31/2022 [facility] Family Family Problem Active 2022-03-31 Mem oria history of history of 22:23:48 l stroke stroke [place] (context-d (context-d ependent ependent category) category) Active Problem 03/31/2022 [facility] History of History Problem Active 2022-03-31 Memoria cerebrovas of 22:23:48 l cular cerebrovas Juan Manuel n accident cular due to accident ischemia due to ischemia Active Problem 03/31/2022 [facility] Left Left Problem Active 2022-03-31 Memor ia hemiparesi hemiparesi 22:23:48 l s s [place] (disorder) (disorder) Active Problem 03/31/2022 [facility] CEREBRAL CEREBRAL Diagnosis Active 2022-07-12 Memoria INFARCTION INFARCTION 07:56:00 l , , [place] UNSPECIFIE UNSPECIFIE D D Active [facility] [id number] Dependence Problem Active Co mmon on renal Spirit dialysis - [facility] [id number] Body mass Problem Active Com mon index Spirit (BMI) - [facility] 35.0-35.9, [facility] [id number] History of Problem Active Co mmon CVA with Spirit residual - [facility] deficit [facility] [id number] Anemia of Problem Active Com mon chronic Spirit disease - [facility] [id number] Mixed Problem Active Common hyperlipid Spirit emia - [facility] [id number] Depression Problem Active Co mmon with Spirit anxiety - [facility] Traumatic Traumatic Diagnosis 2022-07-18 2022-07-18 Memoria AND/OR AND/OR 07-15 01:39:17 01:39:17 l non-trauma non-trauma 19:20: He peter tic injury tic injury 00 (disorder) (disorder) 3 Diagnosis 07/18/2022 [facility] Contusion Contusion Diagnosis 2022-07-18 2022-07-18 Memoria of lower of lower 07-15 01:39:17 01:39:17 l leg leg 19:20: [place] (disorder) (disorder) 00 3 Diagnosis 07/18/2022 [facility] History of Past Illness Condition Condition Condition Status Onset Resolution Last Treating Co mments Source Name Details Category Date Date Treatment Clinician Date End stage End stage Diagnosis 2022-06-09 2022-06-09 Memoria renal renal 3-15 05:09:41 05:09:41 l disease disease 01:03: [place] (disorder) (disorder) 00 06/07/2022 Diagnosis 06/09/2022 [facility] Low blood Low Diagnosis 2022-06-09 2022-06-09 Memoria pressure blood 06-07 05:09:41 05:09:41 l (disorder) pressure 01:02: Herm shelli (disorder) 00 06/07/2022 Diagnosis 06/09/2022 [facility] Dehydratio Dehydrati Diagnosis 2022-06-09 2022-06-09 Memoria n on 06-07 05:09:41 05:09:41 l (disorder) (disorder) 01:02: He rmann 06/07/2022 00 Diagnosis 06/09/2022 [facility] Hypokalemi Hypokalem Diagnosis 2022-06-09 2022-06-09 Memoria a ia 06-07 05:09:41 05:09:41 l (disorder) (disorder) 01:02: He rmann 06/07/2022 00 Diagnosis 06/09/2022 [facility] Urinary Urinary Diagnosis 2022-03-31 2022-03-31 Memoria tract tract 1-04 22:23:48 22:23:48 l infectious infectious 03:35: He rmann disease disease 00 (disorder) (disorder) 03/29/2022 Diagnosis 03/31/2022 [facility] Absence Absence Diagnosis 2022-03-31 2022-03-31 Memoria seizure seizure 1-04 22:23:48 22:23:48 l (disorder) (disorder) 03:34: He rmann 3 Diagnosis 03/31/2022 [facility] Type 2 Type 2 Problem 2021-032022-03-06 2022-03-06 Memoria diabetes diabetes 2-07 10:10:00 10:10:00 l mellitus mellitus 18:23: Juan Manuel n without without 00 complicati complicati ons ons 03/01/2022 03/06/2022 [facility] Anxiety Anxiety Problem 2021-032022-03-06 2022-03-06 Memoria disorder, disorder, 2- 10:10:00 10:10:00 l unspecifie unspecifie 18:23: He rmann d d 00 03/01/2022 03/06/2022 [facility] Anemia, Anemia, Problem 2021-032022-03-06 2022-03-06 Memoria unspecifie unspecifie 2- 10:10:00 10:10:00 l d d 18:23: [place] 03/01/2022 00 03/06/2022 [facility] Parkinson' Parkinson Problem 2021-032022-03-06 2022-03-06 Memoria s disease 's disease 2- 10:10:00 10:10:00 l 18:23: Juan Manuel n 2 00 03/06/2022 [facility] End stage End stage Problem 2021-032022-03-06 2022-03-06 Memoria renal renal 05-02 10:10:00 10:10:00 l disease disease 18:22: [place] 03/01/2022 00 03/06/2022 [facility] Personal Personal Problem 2021-032022-03-06 2022-03-06 Memoria history of history of 05-02 10:10:00 10:10:00 l transient transient 18:22: Herm shelli ischemic ischemic 00 attack attack (TIA), and (TIA), and cerebral cerebral infarction infarction without without residual residual deficits deficits 03/01/[address] 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 Essential Essential Problem 2021-032022-03-06 2022-03-06 Memoria (primary) (primary) 2 10:10:00 10:10:00 l hypertensi hypertensi 18:21: He rmann on on 00 03/01/[address] [facility] Type II Type II Diagnosis 2021-032022-03-05 2022-03-05 Memoria diabetes diabetes 2- 01:19:18 01:19:18 l mellitus mellitus 18:23: Juan Manuel n without without 00 complicati complicati on on (disorder) (disorder) 2 Diagnosis 03/05/2022 [facility] Anxiety Anxiety Diagnosis 2021-032022-03-05 2022-03-05 Memoria disorder disorder 2- 01:19:18 01:19:18 l (disorder) (disorder) 18:23: He rmann 00 2 Diagnosis 03/05/2022 [facility] History of History Diagnosis 2021-032022-03-05 2022-03-05 Memoria - TIA of - TIA 2- 01:19:18 01:19:18 l (context-d (context-d 18:22: He [facility] ependent ependent 00 category) category) 03/01/2022 Diagnosis 03/05/2022 [facility] Paralytic Paralytic Diagnosis 2021-032022-03-05 2022-03-05 Memoria syndrome syndrome 2 01:19:18 01:19:18 l (disorder) (disorder) 18:21: He ann 03/01/2022 00 Diagnosis 03/05/2022 [facility] Essential Essential Diagnosis 2021-032022-03-05 2022-03-05 Memoria hypertensi hypertensi 05-02 01:19:18 01:19:18 l on on 18:21: [place] (disorder) (disorder) 00 03/01/2022 Diagnosis 03/05/2022 [facility] Allergies, Adverse Reactions, Alerts Allergy Allergy Status Severity Reaction(s) Onset Inactive Treating Comm ents Source Name Type Date Date Clinician CRAYFISH Allergy Active High Anaphylaxis 2020- SL EH 5-14 00:00: 00 SHELLFIS Allergy Active Med Itching 2020-0 SLEH H 5-14 CONTAINI 00:00: NG 00 PRODUCTS Shellfis Propensi Active Itching [facility] Containi adverse 00:00: Medical ng reaction 00 Center Products s Crayfish Propensi Active Anaphylaxis 2020-[address] ty to 5-14 [facility] adverse 00:00: Medical reaction 00 Center s Shellfis Keiraensi Active Itching [facility] to 514 [facility] Containi adverse 00:00: Medical ng reaction 00 Center Products s Shellfis Propensi Active Hives 2018-03 Only [facility]-Derive ty to 03-29 crawfish Health d adverse 00:00: per Products reaction 00 patient. s Yeseniafis Propensi Active Hives 2018-03 Only Univer s h ty to 03-29 crawfish ity of Derived adverse 00:00: per [place] reaction 00 patient. Medica l s Branch 0 Drug Active Unknown Common allergy [facility] - [facility] NO KNOWN Allergy Active SLSL ALLERGIE S No Known No Known Active Memori a Medicati Medicati l on on [place] Allergie Allergie s s Family History Family Member Diagnosis Comments Start Date Stop Date Source Natural father Diabetes [facility] Natural father Hypertension [facility] Natural father Stroke [facility] Natural mother Arthritis [facility] Natural mother Diabetes [facility] Natural mother Hypertension [facility] Natural sister Cancer [facility] Natural sister Hypertension [facility] Natural sister Clotting disorder [facility] Social History Social Habit Start Date Stop Date Quantity Comments Source History SDOH [facility] History SDOH [facility] SDOH [facility] Alcohol Binge Medical [facility] Sexual orientation [facility] History of Tobacco Common [facility] - Use [facility] History of Social 2022-06-14 2022-06-[address] function 00:00:00 00:00:00 Hospital Tobacco use and 2022-06-14 2022-06-14 Smokeless Yarsanism exposure 00:00:00 00:00:00 tobacco non-user Hospital Exposure to 2022-01-21 2022-01-31 Not sure [facility] SARS-CoV-2 (event) 00:00:00 10:24:00 Alcohol intake 2021-09-12 2021-09-[address] [facility] 00:00:00 00:00:00 non-drinker of Medical Ce nter alcohol (finding) History SDOH 2021-09-03 2021-09-03 3 [facility] Unable to 00:00:00 00:00:00 Medical Center Pay History [facility] 2021-08-11 2021-08-11 1 [facility] Places 00:00:00 00:00:00 Medical Ce nter Lived History [facility] 2021-08-11 2021-08-11 3 [facility] Homeless 00:00:00 00:00:00 Medical Center Last Year Alcohol Comment 2019-11-04 2019-11-04 social [facility] 00:00:00 00:00:00 Medical Center Sex [birth year] At [birth year] [facility] 00:00:00 00:00:00 Medical Center Smoking Status Start Date Stop Date Source Tobacco smoking consumption unknown [facility] Tobacco smoking status [facility] Medications Ordered Filled Start Stop Current Ordering Indication Dosage Frequency Signature Comments Components Source Medication Medication Date Date Medication? Clinician (SIG) Name Name amLODIPine Yes 5mg QD Take 1 Metho di (NORVASC) 5 3-24 tablet (5 st mg tablet 19:30: mg total) Hos alexis 16 by mouth l daily. apixaban Yes 5mg Q.5D Take 1 Methodi (ELIQUIS) 5 3-24 tablet (5 st mg tablet 19:30: mg total) Hos alexis 16 by mouth 2 l (two) times a day. carbidopa-l Yes 2{tbl} Q.[id number] Take 2 [facility] evodopa 3-[id number] 25-100 mg 19:30: 3D mouth 3 Hospi ta per 16 (three) l disintegrat times a ing tablet day. levETIRAcet Yes 500mg Q.25W Take 1 Me thodi am (KEPPRA) 3-[address] 500 MG 19:30: (500 mg Hospita tablet 16 total) by l mouth 4 (four) times a week. Sunday, , Sunday, Sunday midodrine Yes 5mg Take 1 Method i (PROAMATINE 3-24 tablet (5 st ) 5 MG 19:30: mg total) Hospit a tablet 16 by mouth l Every Sunday, Sunday, and Sunday. Before dialysis metoprolol 2023-0 Yes 100mg Q.5D Take 1 Meth shwetha tartrate 3-[address] (LOPRESSOR) 19:30: (100 mg Hos alexis 100 mg 16 total) by l tablet mouth 2 (two) times a day. potassium 2023-0 Yes 20meq QD Take 1 Metho di chloride 3-24 tablet (20 st (K-DUR) 20 19:30: mEq total) H ospita MEQ CR 16 by mouth l tablet daily. New Rx. Starting 05/29/22 per Rx records pravastatin 3-0 Yes 20mg QD Take 1 Meth shwetha (PRAVACHOL) 3-24 tablet (20 st 20 MG 19:30: mg total) Hospita tablet 16 by mouth l nightly. rotigotine 2022-0 Yes 1{patch QD Place 1 M ethodi (Neupro) 6 3-24 } patch on st mg/24 hour 19:30: the skin Hos alexis 16 daily. l spironolact 2022-0 Yes 25mg QD Take 1 Meth shwetha one 3-24 tablet (25 st (ALDACTONE) 19:30: mg total) [facility] 25 MG 16 by mouth l tablet daily. topiramate 3-0 Yes 50mg Q.5D Take 1 Metho di (TOPAMAX) 3-24 tablet (50 st 50 MG 19:30: mg total) [facility] tablet 16 by mouth 2 l (two) times a day. traZODone 3-0 Yes 25mg QD Take 0.5 Meth shwetha (DESYREL) 3-[address] 50 MG 19:30: (25 mg [facility]osp[facility] tablet 16 total) by l mouth nightly. valproate 2022-0 Yes 1000mg [id number] Take 20 mL [facility] (DEPAKENE) 3-24 [id number] (1,[address] 250 mg/5 mL 19:30: 3D total) by [facility] syrup 16 mouth 3 l (three) times a day. 20ml (= 1000mg) three times daily - verified dose with retail pharmacy amLODIPine 3-0 Yes 5mg QD Take 1 Metho di (NORVASC) 5 3-24 tablet (5 st mg tablet 19:30: mg total) Hos alexis 16 by mouth l daily. apixaban 2023-0 Yes 5mg Q.5D Take 1 [facility] (ELIQUIS) 5 3-24 tablet (5 st mg tablet 19:30: mg total) Hos alexis 16 by mouth 2 l (two) times a day. carbidopa-l 2022-0 Yes 2{tbl} [id number] Take 2 [facility] evodopa 3-[id number] 25-100 mg 19:30: 3D mouth 3 Hospi ta per 16 (three) l disintegrat times a ing tablet day. levETIRAcet 2022-0 Yes 500mg Q.25W Take 1 Me thodi am (KEPPRA) 3-[address] 500 MG 19:30: (500 mg [facility]ospita tablet 16 total) by l mouth 4 (four) times a week. Sunday, , Sunday, Sunday midodrine 2022-0 Yes 5mg Take 1 [facility] (PROAMATINE 3-24 tablet (5 st ) 5 MG 19:30: mg total) Hospit a tablet 16 by mouth l Every Sunday, Sunday, and Sunday. Before dialysis metoprolol 2022-0 Yes 100mg Q.5D Take 1 Meth shwetha tartrate 3-[address] (LOPRESSOR) 19:30: (100 mg Hos alexis 100 mg 16 total) by l tablet mouth 2 (two) times a day. potassium 2022-0 Yes 20meq QD Take 1 Metho di chloride 3-24 tablet (20 st (K-DUR) 20 19:30: mEq total) [facility] MEQ CR 16 by mouth l tablet daily. New Rx. Starting 05/29/22 per Rx records pravastatin 2022-0 Yes 20mg QD Take 1 Meth shwetha (PRAVACHOL) 3-24 tablet (20 st 20 MG 19:30: mg total) [facility]ospita tablet 16 by mouth l nightly. rotigotine 2022-0 Yes 1{patch QD Place 1 M [facility] (Neupro) 6 3-24 } patch on st mg/24 hour 19:30: the skin Hos alexis 16 daily. l spironolact 2022-0 Yes 25mg QD Take 1 Meth shwetha one 3-24 tablet (25 st (ALDACTONE) 19:30: mg total) [facility] 25 MG 16 by mouth l tablet daily. topiramate 2023-0 Yes 50mg Q.5D Take 1 Metho di (TOPAMAX) 3-24 tablet (50 st 50 MG 19:30: mg total) [facility]ospita tablet 16 by mouth 2 l (two) times a day. traZODone 3-0 Yes 25mg QD Take 0.5 Meth shwetha (DESYREL) 3-[address] 50 MG 19:30: (25 mg [facility]ospita tablet 16 total) by l mouth nightly. valproate 2022-0 Yes 1000mg [id number] Take 20 mL [facility] (DEPAKENE) 3-24 [id number] (1,[address] 250 mg/5 mL 19:30: 3D total) by [facility] syrup 16 mouth 3 l (three) times a day. 20ml (= 1000mg) three times daily - verified dose with retail pharmacy cefdinir 3-0 Yes 300 mg = 1 [facility] 300 mg oral 1-04 cap, PO, l capsule 03:35: Q12H, X 7 Jennifer nn 00 day, # 14 cap, 0 Refill(s), Pharmacy: [facility], 167.64, cm, 03/28/22 17:57:00 PRIVATE DETECTIVE, Height, 61.364, kg, 03/28/22 17:57:00 PRIVATE DETECTIVE, Weight cefdinir 2022-0 Yes 300 mg = 1 Mem oria 300 mg oral 1-04 cap, PO, l capsule 03:35: Q12H, X 7 Jennifer nn 00 day, # 14 cap, 0 Refill(s), Pharmacy: [facility], 167.64, cm, 03/28/22 17:57:00 PRIVATE DETECTIVE, Height, 61.364, kg, 03/28/22 17:57:00 PRIVATE DETECTIVE, Weight cefdinir 2022-0 Yes 300 mg = 1 Mem oria 300 mg oral 1-04 cap, PO, l capsule 03:35: Q12H, X 7 Jennifer nn 00 day, # 14 cap, 0 Refill(s), Pharmacy: [facility], 167.64, cm, 03/28/22 17:57:00 PRIVATE DETECTIVE, Height, 61.364, kg, 03/28/22 17:57:00 PRIVATE DETECTIVE, Weight cefdinir 2023-0 Yes 300 mg = 1 Mem oria 300 mg oral 1-04 cap, PO, l capsule 03:35: Q12H, X 7 Jennifer day, # 14 cap, 0 Refill(s), Pharmacy: [facility], 167.64, cm, 03/28/22 17:57:00 PRIVATE DETECTIVE, Height, 61.364, kg, 03/28/22 17:57:00 PRIVATE DETECTIVE, Weight Keppra 500 2021-03 No Notes: Memor ia mg oral 2-09 (Same l tablet 15:00: as:Keppra) Jennifer Keppra 500 2021-03 No Notes: [facility] mg oral 2-09 (Same l tablet 15:00: as:Keppra) Jennifer Keppra 500 2021-03 No Notes: [facility] ia mg oral 2-09 (Same l tablet 15:00: as:Keppra) Jennifer Keppra 500 2021-03 No Notes: [facility] ia mg oral 2-09 (Same l tablet 15:00: as:Keppra) Jennifer potassium 2021-03 No /= 14 [facility] chloride 2-08 [place], l 16:55: may [place] 00 dissolve each 20 mEq tablet in 4 oz of water. Allow about 2 minutes for the tablets to disintegra te. Stir before giving to prepare slurry and administer . Please exclude patient's with feeding tube less than 14 [place] (Dobhoff, J-tube, etc) and pediatric and patients. potassium 2021-03 No /= 14 [facility] chloride 2-08 [place], l 16:55: july [place] 00 dissolve each 20 mEq tablet in 4 oz of water. Allow about 2 minutes for the tablets to disintegra te. Stir before giving to prepare slurry and administer . Please exclude patient's with feeding tube less than 14 [place] ([place], J-tube, etc) and pediatric and patients. potassium 2021-03 No /= 14 [facility] chloride 2-08 [place], l 16:55: may [place] 00 dissolve each 20 mEq tablet in 4 oz of water. Allow about 2 minutes for the tablets to disintegra te. Stir before giving to prepare slurry and administer . Please exclude patient's with feeding tube less than 14 [place] ([place]ob[place], J-tube, etc) and pediatric and patients. potassium 2021-03 No /= 14 [facility] chloride 2-08 [place], l 16:55: july dissolve each 20 mEq tablet in 4 oz of water. Allow about 2 minutes for the tablets to disintegra te. Stir before giving to prepare slurry and administer . Please exclude patient's with feeding tube less than 14 [place] ([place], J-tube, etc) and pediatric and patients. rotigotine 2021-03 No 1 patch, Mem oria 6 mg/24 hr 2-08 Route: l transdermal 15:00: TOP, Drug H ermann film, 00 Form: extended ERFILM, release Dosing Weight 63.5, kg, Daily, Start date: 03/02/22 9:00:00 PRIVATE DETECTIVE, Duration: 30 day, Stop date: 03/31/22 9:00:00 PRIVATE DETECTIVE rotigotine 2021-03 No 1 patch, Mem oria 6 mg/24 hr 2-08 Route: l transdermal 15:00: TOP, Drug [place] film, 00 Form: extended ERFILM, release Dosing Weight 63.5, kg, Daily, Start date: 03/02/22 9:00:00 PRIVATE DETECTIVE, Duration: 30 day, Stop date: 03/31/22 9:00:00 PRIVATE DETECTIVE rotigotine 2021-03 No 1 patch, Mem oria 6 mg/24 hr 2-08 Route: l transdermal 15:00: TOP, Drug [place] film, 00 Form: extended ERFILM, release Dosing Weight 63.5, kg, Daily, Start date: 03/02/22 9:00:00 PRIVATE DETECTIVE, Duration: 30 day, Stop date: 03/31/22 9:00:00 PRIVATE DETECTIVE rotigotine 2021-03 No 1 patch, Mem oria 6 mg/24 hr 2-08 Route: l transdermal 15:00: TOP, Drug [place] film, 00 Form: extended ERFILM, release Dosing Weight 63.5, kg, Daily, Start date: 03/02/22 9:00:00 PRIVATE DETECTIVE, Duration: 30 day, Stop date: 03/31/22 9:00:00 PRIVATE DETECTIVE Remeron 2021-03 No Notes: Memoria 2-08 (Same l 03:00: as:Remeron ) pravastatin 2021-03 No Notes: Enrrique devang 2-08 (Same as: l 03:00: Pravachol) trazodone 2021-03 No Notes: Memori a 50 mg oral 2-08 (Same As: l tablet 03:00: Desyrel) Remeron 2021-03 No Notes: Memoria 2-08 (Same l 03:00: as:Remeron [place] 00 ) pravastatin 2021-03 No Notes: Enrrique devang 2-08 (Same as: l 03:00: Pravachol) trazodone 2021-03 No Notes: Memori a 50 mg oral 2-08 (Same As: l tablet 03:00: Desyrel) Remeron 2021-03 No Notes: Memoria 2-08 (Same l 03:00: as:Remeron [place] 00 ) pravastatin 2021-03 No Notes: Enrrique devang 2-08 (Same as: l 03:00: Pravachol) trazodone 2021-03 No Notes: Memori a 50 mg oral 2-08 (Same As: l tablet 03:00: Desyrel) Remeron 2021-03 No Notes: Memoria 2-08 (Same l 03:00: as:Remeron ) pravastatin 2021-03 No Notes: Enrrique devang 2-08 (Same as: l 03:00: Pravachol) trazodone 2021-03 No Notes: Memori a 50 mg oral 2-08 (Same As: l tablet 03:00: Desyrel) apixaban 2021-03 No Notes: [facility]oria 2-07 Same as: l 23:00: Eliquis Keppra 500 2021-03 No 1 tab, Memor ia mg oral 2-07 Route: PO, l tablet 23:00: Drug form: Jennifer nn 00 TAB, BID, Dosing Weight 63.5, kg, Start date: 03/01/22 17:00:00 PRIVATE DETECTIVE, Duration: 30 day, Stop date: 03/31/22 9:00:00 PRIVATE DETECTIVE metoprolol 2021-03 No Notes: Memor ia tartrate 2-07 (Same as: l 23:00: Lopressor) apixaban 2021-03 No Notes: Memoria 2-07 Same as: l 23:00: Eliquis [place] Keppra 500 2021-03 No 1 tab, Memor ia mg oral 2-07 Route: PO, l tablet 23:00: Drug form: Ejnnifer nn 00 TAB, BID, Dosing Weight 63.5, kg, Start date: 03/01/22 17:00:00 PRIVATE DETECTIVE, Duration: 30 day, Stop date: 03/31/22 9:00:00 PRIVATE DETECTIVE metoprolol 2021-03 No Notes: Memor ia tartrate 2-07 (Same as: l 23:00: Lopressor) apixaban 2021-03 No Notes: Memoria 2-07 Same as: l 23:00: Eliquis [place] Keppra 500 2021-03 No 1 tab, Memor ia mg oral 2-07 Route: PO, l tablet 23:00: Drug form: Jennifer nn 00 TAB, BID, Dosing Weight 63.5, kg, Start date: 03/01/22 17:00:00 PRIVATE DETECTIVE, Duration: 30 day, Stop date: 03/31/22 9:00:00 PRIVATE DETECTIVE metoprolol 2021-03 No Notes: Memor ia tartrate 2-07 (Same as: l 23:00: Lopressor) apixaban 2021-03 No Notes: Memoria 2-07 Same as: l 23:00: Eliquis Keppra 500 2021-03 No 1 tab, Memor ia mg oral 2-07 Route: PO, l tablet 23:00: Drug form: Jennifer nn 00 TAB, BID, Dosing Weight 63.5, kg, Start date: 03/01/22 17:00:00 PRIVATE DETECTIVE, Duration: 30 day, Stop date: 03/31/22 9:00:00 PRIVATE DETECTIVE metoprolol 2021-03 No Notes: Memor ia tartrate 2-07 (Same as: l 23:00: Lopressor) Sinemet 2021-03 No Notes: Memor ia mg-100 mg 2-07 TIME l oral tablet 19:00: CRITICAL He rm MEDICATION Take with milk or food. (Same As: Sinemet) Sinemet 2021-03 No Notes: Memor ia mg-100 mg 2-07 TIME l oral tablet 19:00: CRITICAL [place] 00 MEDICATION Take with milk or food. (Same As: Sinemet) Sinemet 2021-03 No Notes: Memor ia mg-100 mg 2-07 TIME l oral tablet 19:00: CRITICAL [place] 00 MEDICATION Take with milk or food. (Same As: Sinemet) Sinemet 2021-03 No Notes: Memor ia mg-100 mg 2-07 TIME l oral tablet 19:00: CRITICAL [place] 00 MEDICATION Take with milk or food. (Same As: Sinemet) pravastatin 2021-03 Yes 20 mg = 1 M emoria 20 mg oral 2-07 tab, PO, l tablet 18:21: Bedtime, 0 Jennifer nn 00 Refill(s) pravastatin 2021-03 Yes 20 mg = 1 M emoria 20 mg oral 2-07 tab, PO, l tablet 18:21: Bedtime, 0 Jennifer nn 00 Refill(s) pravastatin 2021-03 Yes 20 mg = 1 M emoria 20 mg oral 2-07 tab, PO, l tablet 18:21: Bedtime, 0 Jennifer nn 00 Refill(s) pravastatin 2021-03 Yes 20 mg = 1 M emoria 20 mg oral 2-07 tab, PO, l tablet 18:21: Bedtime, 0 Jennifer nn 00 Refill(s) melatonin 2021-03 No Notes: Enrrique devang mg oral 2-07 (Same as: l tablet 18:19: Melatonin) Jennifer nn 00 melatonin 2021-03 No Notes: Enrrique devang mg oral 2-07 (Same as: l tablet 18:19: Melatonin) Jennifer nn 00 melatonin 2021-03 No Notes: Enrrique devang mg oral 2-07 (Same as: l tablet 18:19: Melatonin) Jennifer nn 00 melatonin 2021-03 No Notes: Enrrique devang mg oral 2-07 (Same as: l tablet 18:19: Melatonin) Jennifer nn 00 mannitol 2021-03 No Notes: Memoria 2-07 (Same as: l 15:13: Osmitrol) [place] 00 Infuse through 5 micron or smaller filter WASTE: F/P - Sink; E - Municipal Trash Bin mannitol 2021-03 No Notes: Memoria 2-07 (Same as: l 15:13: Osmitrol) [place] 00 Infuse through 5 micron or smaller filter WASTE: F/P - Sink; E - Municipal Trash Bin mannitol 2021-03 No Notes: Memoria 2-07 (Same as: l 15:13: Osmitrol) [place] 00 Infuse through 5 micron or smaller filter WASTE: F/P - Sink; E - Municipal Trash Bin mannitol 2021-03 No Notes: Memoria 2-07 (Same as: l 15:13: Osmitrol) [place] 00 Infuse through 5 micron or smaller filter WASTE: F/P - Sink; E - Municipal Trash Bin aspirin 300 2021-03 No Notes: Enrrique devang mg rectal 2-07 Refrigerat l suppository 15:00: e. [place] n 00 aspirin 300 2021-03 No Notes: Enrrique devang mg rectal 2-07 Refrigerat l suppository 15:00: e. [place] n 00 aspirin 300 2021-03 No Notes: Enrrique devang mg rectal 2-07 Refrigerat l suppository 15:00: e. [place] n 00 aspirin 300 2021-03 No Notes: Enrrique devang mg rectal 2-07 Refrigerat l suppository 15:00: e. [place] n 00 Dextrose 2021-03 No 125 mL, Memori a 10% in 05-02 Rate: 999 l Water IV 14:27: ml/hr, [place] 00 Infuse over: 0.1 hr, Route: IV, Total Volume: 125, Start date: 03/01/22 8:27:00 PRIVATE DETECTIVE, Duration: 30 day, Stop date: 03/31/22 8:26:00 PRIVATE DETECTIVE, PRN Glucose level, 0 Dextrose 2021-03 No 125 mL, Memori a 10% in 05-02 Rate: 999 l Water IV 14:27: ml/hr, [place] 00 Infuse over: 0.1 hr, Route: IV, Total Volume: 125, Start date: 03/01/22 8:27:00 PRIVATE DETECTIVE, Duration: 30 day, Stop date: 03/31/22 8:26:00 PRIVATE DETECTIVE, PRN Glucose level, 0 Dextrose 2021-03 No 125 mL, Memori a 10% in 05-02 Rate: 999 l Water IV 14:27: ml/hr, [place] 00 Infuse over: 0.1 hr, Route: IV, Total Volume: 125, Start date: 03/01/22 8:27:00 PRIVATE DETECTIVE, Duration: 30 day, Stop date: 03/31/22 8:26:00 PRIVATE DETECTIVE, PRN Glucose level, 0 Dextrose 2021-03 No 125 mL, Memori a 10% in 05-02 Rate: 999 l Water IV 14:27: ml/hr, [place] 00 Infuse over: 0.1 hr, Route: IV, Total Volume: 125, Start date: 03/01/22 8:27:00 PRIVATE DETECTIVE, Duration: 30 day, Stop date: 03/31/22 8:26:00 PRIVATE DETECTIVE, PRN Glucose level, 0 albumin 2021-03 No 25 gm, Memoria human 25% 2-07 Route: l intravenous 14:24: IVPB, Jennifer nn solution 00 ONCE, Dosing Weight 63.5, kg, Start date: 03/01/22 8:24:00 PRIVATE DETECTIVE, Stop date: 03/01/22 8:24:00 PRIVATE DETECTIVE, Indication : Intradialy tic Hypotensio n - See comments midodrine 2021-03 No Notes: Memori a 2-07 (Same l 14:24: as:Proamat [place] 00 ine) albumin 2021-03 No 25 gm, Memoria human 25% 2-07 Route: l intravenous 14:24: IVPB, Jennifer nn solution 00 ONCE, Dosing Weight 63.5, kg, Start date: 03/01/22 8:24:00 PRIVATE DETECTIVE, Stop date: 03/01/22 8:24:00 PRIVATE DETECTIVE, Indication : Intradialy tic Hypotensio n - See comments midodrine 2021-03 No Notes: Memori a 2-07 (Same l 14:24: as:Proamat [place] 00 ine) albumin 2021-03 No 25 gm, Memoria human 25% 2-07 Route: l intravenous 14:24: IVPB, Jennifer nn solution 00 ONCE, Dosing Weight 63.5, kg, Start date: 03/01/22 8:24:00 PRIVATE DETECTIVE, Stop date: 03/01/22 8:24:00 PRIVATE DETECTIVE, Indication : Intradialy tic Hypotensio n - See comments midodrine 2021-03 No Notes: Memori a 2-07 (Same l 14:24: as:Proamat [place] 00 ine) albumin 2021-03 No 25 gm, Memoria human 25% 05-02 Route: l intravenous 14:24: IVPB, Jennifer nn solution 00 ONCE, Dosing Weight 63.5, kg, Start date: 03/01/22 8:24:00 PRIVATE DETECTIVE, Stop date: 03/01/22 8:24:00 PRIVATE DETECTIVE, Indication : Intradialy tic Hypotensio n - See comments midodrine 2021-03 No Notes: Memori a -07 (Same l 14:24: as:Proamat [place] 00 ine) valproic 2021-03 Yes See Memoria acid 250 2-07 Instructio l mg/5 mL 12:54: ns, 20 mL Jennifer nn oral syrup 00 PO TID, 0 (Depakene) Refill(s) valproic 2021-03 Yes See Memoria acid 250 2-07 Instructio l mg/5 mL 12:54: ns, 20 mL Jennifer nn oral syrup 00 PO TID, 0 (Depakene) Refill(s) valproic 2021-03 Yes See Memoria acid 250 2-07 Instructio l mg/5 mL 12:54: ns, 20 mL Jennifer nn oral syrup 00 PO TID, 0 (Depakene) Refill(s) valproic 2021-03 Yes See Memoria acid 250 2-07 Instructio l mg/5 mL 12:54: ns, 20 mL Jennifer nn oral syrup 00 PO TID, 0 (Depakene) Refill(s) Topamax 50 2021-03 Yes 50 mg = 1 Me moria mg oral 2-07 tab, PO, l tablet 12:53: BID, # 60 Juan Manuel n 00 tab, 0 Refill(s) trazodone 2021-03 Yes 25 mg = Memor ia 50 mg oral 2-07 0.5 tab, l tablet 12:53: PO, [place] 00 Bedtime, 0 Refill(s) Topamax 50 2021-03 Yes 50 mg = 1 Me moria mg oral 2-07 tab, PO, l tablet 12:53: BID, # 60 Juan Manuel n 00 tab, 0 Refill(s) trazodone 2021-03 Yes 25 mg = Memor ia 50 mg oral 2-07 0.5 tab, l tablet 12:53: PO, [place] 00 Bedtime, 0 Refill(s) Topamax 50 2021-03 Yes 50 mg = 1 Me moria mg oral 2-07 tab, PO, l tablet 12:53: BID, # 60 Juan Manuel n 00 tab, 0 Refill(s) trazodone 2021-03 Yes 25 mg = Memor ia 50 mg oral 2-07 0.5 tab, l tablet 12:53: PO, [place] 00 Bedtime, 0 Refill(s) Topamax 50 2021-03 Yes 50 mg = 1 Me moria mg oral 2-07 tab, PO, l tablet 12:53: BID, # 60 Juan Manuel n 00 tab, 0 Refill(s) trazodone 2021-03 Yes 25 mg = Memor ia 50 mg oral 2-07 0.5 tab, l tablet 12:53: PO, [place] 00 Bedtime, 0 Refill(s) rotigotine 2021-03 Yes 1 patch, Mem oria 6 mg/24 hr 2-07 TOP, l transdermal 12:52: Daily, # [place] film, 00 30 patch, extended 0 release Refill(s) simethicone 2021-03 Yes TID with Me moria 80 mg oral 2-07 meals, 0 l tablet 12:52: Refill(s) Juan Manuel n 00 pravastatin 2021-03 No 20 mg = 1 M emoria 20 mg oral 2-07 tab, PO, l tablet 12:52: Bedtime, 0 Jennifer nn 00 Refill(s) rotigotine 2021-03 Yes 1 patch, Mem oria 6 mg/24 hr 2-07 TOP, l transdermal 12:52: Daily, # [place] film, 00 30 patch, extended 0 release Refill(s) simethicone 2021-03 Yes TID with Me moria 80 mg oral 2-07 meals, 0 l tablet 12:52: Refill(s) Juan Manuel n 00 pravastatin 2021-03 No 20 mg = 1 M emoria 20 mg oral 2-07 tab, PO, l tablet 12:52: Bedtime, 0 Jennifer nn 00 Refill(s) rotigotine 2021-03 Yes 1 patch, Mem oria 6 mg/24 hr 2-07 TOP, l transdermal 12:52: Daily, # [place] film, 00 30 patch, extended 0 release Refill(s) simethicone 2021-03 Yes TID with Me moria 80 mg oral 2-07 meals, 0 l tablet 12:52: Refill(s) Juan Manuel n 00 pravastatin 2021-03 No 20 mg = 1 M emoria 20 mg oral 2-07 tab, PO, l tablet 12:52: Bedtime, 0 Jennifer nn 00 Refill(s) rotigotine 2021-03 Yes 1 patch, Mem oria 6 mg/24 hr 2-07 TOP, l transdermal 12:52: Daily, # [place] film, 00 30 patch, extended 0 release Refill(s) simethicone 2021-03 Yes TID with Me moria 80 mg oral 2-07 meals, 0 l tablet 12:52: Refill(s) Juan Manuel n 00 pravastatin 2021-03 No 20 mg = 1 M emoria 20 mg oral 2-07 tab, PO, l tablet 12:52: Bedtime, 0 Jennifer nn 00 Refill(s) Remeron 15 2021-03 Yes See Memoria mg oral 2-07 Instructio l tablet 12:51: ns, /2 [place] 00 tab PO Bedtime, 0 Refill(s) Remeron 15 2021-03 Yes See [facility]oria mg oral 2-07 Instructio l tablet 12:51: ns, 03/27 [place] 00 tab PO Bedtime, 0 Refill(s) Remeron 15 2021-03 Yes See Memoria mg oral 2-07 Instructio l tablet 12:51: ns, 03/27 [place] 00 tab PO Bedtime, 0 Refill(s) Remeron 15 2021-03 Yes See [facility]oria mg oral 2-07 Instructio l tablet 12:51: ns, 03/27 [place] 00 tab PO Bedtime, 0 Refill(s) Keppra 500 2021-03 Yes See [facility]oria mg oral 2-07 Instructio l tablet 12:50: ns, daily Juan Manuel n 00 M-W-F, 0 Refill(s) melatonin 3 2021-03 Yes 3 mg = 1 Me moria mg oral 2-07 tab, PO, l tablet 12:50: Bedtime, [place] 00 PRN for insomnia, # 14 tab, 0 Refill(s) metoprolol 2021-03 Yes 25 mg = 1 Me moria tartrate 25 2-07 tab, PO, l mg oral 12:50: BID, 0 [place] tablet 00 Refill(s) Keppra 500 2021-03 Yes See Memoria mg oral 2-07 Instructio l tablet 12:50: ns, daily Juan Manuel n , 0 Refill(s) melatonin 3 2021-03 Yes 3 mg = 1 Me moria mg oral 2-07 tab, PO, l tablet 12:50: Bedtime, [place] 00 PRN for insomnia, # 14 tab, 0 Refill(s) metoprolol 2021-03 Yes 25 mg = 1 Me moria tartrate 25 2-07 tab, PO, l mg oral 12:50: BID, 0 [place] tablet 00 Refill(s) Keppra 500 2021-03 Yes See Memoria mg oral 2-07 Instructio l tablet 12:50: ns, daily [place] n , 0 Refill(s) melatonin 3 2021-03 Yes 3 mg = 1 Me moria mg oral 2-07 tab, PO, l tablet 12:50: Bedtime, [place] 00 PRN for insomnia, # 14 tab, 0 Refill(s) metoprolol 2021-03 Yes 25 mg = 1 Me moria tartrate 25 2-07 tab, PO, l mg oral 12:50: BID, 0 [place] tablet 00 Refill(s) Keppra 500 2021-03 Yes See [facility]oria mg oral 2-07 Instructio l tablet 12:50: ns, daily Juan Manuel , 0 Refill(s) melatonin 3 2021-03 Yes 3 mg = 1 Me moria mg oral 2-07 tab, PO, l tablet 12:50: Bedtime, [place] 00 PRN for insomnia, # 14 tab, 0 Refill(s) metoprolol 2021-03 Yes 25 mg = 1 Me moria tartrate 25 2-07 tab, PO, l mg oral 12:50: BID, 0 [place] tablet 00 Refill(s) Sinemet 2021-03 Yes 1 tab, PO, M emoria mg-100 mg 2-07 TID, 0 l oral tablet 12:49: Refill(s) H [place] 00 Sinemet 25 2021-03 Yes 1 tab, PO, M emoria mg-100 mg 2-07 TID, 0 l oral tablet 12:49: Refill(s) H Sinemet 2021-03 Yes 1 tab, PO, M emoria mg-100 mg 2-07 TID, 0 l oral tablet 12:49: Refill(s) H Sinemet 2021-03 Yes 1 tab, PO, M emoria mg-100 mg 2-07 TID, 0 l oral tablet 12:49: Refill(s) H apixaban 2021-03 Yes 5 mg = 1 Mem oria mg oral 2-07 tab, PO, l tablet 12:48: BID, 0 [place] 00 Refill(s) apixaban 2021-03 Yes 5 mg = 1 Mem oria mg oral 2-07 tab, PO, l tablet 12:48: BID, 0 [place] 00 Refill(s) apixaban 2021-03 Yes 5 mg = 1 Mem oria mg oral 2-07 tab, PO, l tablet 12:48: BID, 0 [place] 00 Refill(s) apixaban 2021-03 Yes 5 mg = 1 Mem oria mg oral 2-07 tab, PO, l tablet 12:48: BID, 0 [place] 00 Refill(s) aspirin 81 2021-03 No 81 mg, Memor ia mg tablet, 05-02 Route: PO, l chewable 06:00: Drug form: Her ally [place], Q24H, Dosing Weight 62.727, kg, Start date: 03/01/22 0:00:00 PRIVATE DETECTIVE, Duration: 30 day, Stop date: 03/30/22 0:00:00 PRIVATE DETECTIVE, 0 aspirin 81 2021-03 No 81 mg, Memor ia mg tablet, 2 Route: PO, l chewable 06:00: Drug form: Her [place], Q24H, Dosing Weight 62.727, kg, Start date: 03/01/22 0:00:00 PRIVATE DETECTIVE, Duration: 30 day, Stop date: 03/30/22 0:00:00 PRIVATE DETECTIVE, 0 aspirin 81 2021-03 No 81 mg, Memor ia mg tablet, 2 Route: PO, l chewable 06:00: Drug form: Her [place] 00 [place], Q24H, Dosing Weight 62.727, kg, Start date: 03/01/22 0:00:00 PRIVATE DETECTIVE, Duration: 30 day, Stop date: 03/30/22 0:00:00 PRIVATE DETECTIVE, 0 aspirin 81 2021-03 No 81 mg, Memor ia mg tablet, 2-07 Route: PO, l chewable 06:00: Drug form: Her [place] 00 [place], Q24H, Dosing Weight 62.727, kg, Start date: 03/01/22 0:00:00 PRIVATE DETECTIVE, Duration: 30 day, Stop date: 03/30/22 0:00:00 PRIVATE DETECTIVE, 0 atorvastati 2021-03 No Notes: Enrrique devang n 2-07 (Same as: l 03:00: Lipitor) Saline 2021-03 No Notes: Memoria Flush 0.9% 2-07 Same as: l 03:00: BD Posiflush Sterile atorvastati 2021-03 No Notes: Enrrique devang n 2-07 (Same as: l 03:00: Lipitor) Saline 2021-03 No Notes: [facility]oria Flush 0.9% 2-07 Same as: l 03:00: BD Posiflush Sterile atorvastati 2021-03 No Notes: Enrrique devang n 2-07 (Same as: l 03:00: Lipitor) Saline 2021-03 No Notes: [facility] Flush 0.9% 2-07 Same as: l 03:00: BD Posiflush Sterile atorvastati 2021-03 No Notes: Enrrique devang n 2-07 (Same as: l 03:00: Lipitor) Saline 2021-03 No Notes: [facility]oria Flush 0.9% 2-07 Same as: l 03:00: BD Posiflush Sterile aspirin 81 2021-03 No Notes: Memor ia mg tablet, 2-06 Take with l chewable 23:00: food. aspirin 81 2021-03 No Notes: Memor ia mg tablet, 2-06 Take with l chewable 23:00: food. aspirin 81 2021-03 No Notes: Memor ia mg tablet, 2-06 Take with l chewable 23:00: food. aspirin 81 2021-03 No Notes: Memor ia mg tablet, 2-06 Take with l chewable 23:00: food. Dextrose 2021-03 No 12.5 gm, [facility] 50% Syringe 2-06 25 mL, l (D50W) 22:53: Route: [place] IVP, Drug Form: INJ, Dosing Weight 62.727, kg, PRN, PRN Blood Glucose Results, Start date: 02/28/22 16:53:00 [employer], Duration: 30 day, Stop date: 03/30/22 16:52:00 [employer], 0 glucagon 2021-03 No 1 mg, [facility] 2-06 Route: IM, l 22:53: Drug form: [place] 00 PDR/INJ, PRN, Dosing Weight 62.727, kg, PRN Blood Glucose Results, Start date: 02/28/22 16:53:00 [employer], Duration: 30 day, Stop date: 03/30/22 16:52:00 [employer], 0 insulin 2021-03 No Notes: [facility] lispro 2-06 (Same as: l 22:53: Humalog) Roll in palms of hands gently; Do not shake vigorously . WASTE: F/P - Black; E - Municipal Trash Bin Stable for 28 days at room temperatur e. Expires in days from ____Date Dextrose 2021-03 No 12.5 gm, [facility] 50% Syringe 2-06 25 mL, l (D50W) 22:53: Route: [place] 00 IVP, Drug Form: INJ, Dosing Weight 62.727, kg, PRN, PRN Blood Glucose Results, Start date: 02/28/22 16:53:00 [employer], Duration: 30 day, Stop date: 03/30/22 16:52:00 [employer], 0 glucagon 2021-03 No 1 mg, [facility] 2-06 Route: IM, l 22:53: Drug form: [place] 00 PDR/INJ, PRN, Dosing Weight 62.727, kg, PRN Blood Glucose Results, Start date: 02/28/22 16:53:00 PRIVATE DETECTIVE, Duration: 30 day, Stop date: 03/30/22 16:52:00 PRIVATE DETECTIVE, 0 insulin 2021-03 No Notes: [facility] lispro 2-06 (Same as: l 22:53: Humalog) [place] 00 Roll in palms of hands gently; Do not shake vigorously . WASTE: F/P - Black; E - Municipal Trash Bin Stable for 28 days at room temperatur e. Expires in days from ____Date Dextrose 2021-03 No 12.5 gm, Mem[facility] 50% Syringe 2-06 25 mL, l (D50W) 22:53: Route: [place] 00 IVP, Drug Form: INJ, Dosing Weight 62.727, kg, PRN, PRN Blood Glucose Results, Start date: 02/28/22 16:53:00 PRIVATE DETECTIVE, Duration: 30 day, Stop date: 03/30/22 16:52:00 PRIVATE DETECTIVE, 0 glucagon 2021-03 No 1 mg, [facility] 2-06 Route: IM, l 22:53: Drug form: [place] 00 PDR/INJ, PRN, Dosing Weight 62.727, kg, PRN Blood Glucose Results, Start date: 02/28/22 16:53:00 PRIVATE DETECTIVE, Duration: 30 day, Stop date: 03/30/22 16:52:00 PRIVATE DETECTIVE, 0 insulin 2021-03 No Notes: [facility] lispro 2-06 (Same as: l 22:53: Humalog) [place] 00 Roll in palms of hands gently; Do not shake vigorously . WASTE: F/P - Black; E - Municipal Trash Bin Stable for 28 days at room temperatur e. Expires in days from ____Date Dextrose 2021-03 No 12.5 gm, [facility] 50% Syringe 2-06 25 mL, l (D50W) 22:53: Route: [place] 00 IVP, Drug Form: INJ, Dosing Weight 62.727, kg, PRN, PRN Blood Glucose Results, Start date: 02/28/22 16:53:00 PRIVATE DETECTIVE, Duration: 30 day, Stop date: 03/30/22 16:52:00 PRIVATE DETECTIVE, 0 glucagon 2021-03 No 1 mg, [facility] 2-06 Route: IM, l 22:53: Drug form: [place] 00 PDR/INJ, PRN, Dosing Weight 62.727, kg, PRN Blood Glucose Results, Start date: 02/28/22 16:53:00 PRIVATE DETECTIVE, Duration: 30 day, Stop date: 03/30/22 16:52:00 PRIVATE DETECTIVE, 0 insulin 2021-03 No Notes: [facility] lispro 2-06 (Same as: l 22:53: Humalog) [place] 00 Roll in palms of hands gently; Do not shake vigorously . WASTE: F/P - Black; E - Municipal Trash Bin Stable for 28 days at room temperatur e. Expires in days from ____Date acetaminoph 2021-03 No Notes: Do M emoria en 2-06 not exceed l 22:51: 4 gm/day. [place] 00 (Same as: Tylenol) Saline 2021-03 No Notes: [facility] Flush 0.9% 2-06 Same as: l 22:51: BD [place] 00 Posiflush Sterile acetaminoph 2021-03 No Notes: Do M emoria en 2-06 not exceed l 22:51: 4 gm/day. [place] 00 (Same as: Tylenol) Saline 2021-03 No Notes: [facility] Flush 0.9% 2-06 Same as: l 22:51: BD [place] 00 Posiflush Sterile acetaminoph 2021-03 No Notes: Do M emoria en 2-06 not exceed l 22:51: 4 gm/day. [place] 00 (Same as: Tylenol) Saline 2021-03 No Notes: [facility] Flush 0.9% 2-06 Same as: l 22:51: BD [place] 00 Posiflush Sterile acetaminoph 2021-03 No Notes: Do M emoria en 2-06 not exceed l 22:51: 4 gm/day. [place] 00 (Same as: Tylenol) Saline 2021-03 No Notes: [facility] Flush 0.9% 2-06 Same as: l 22:51: BD [place] 00 Posiflush Sterile Dextrose 2021-03 No 25 mL, [facility] 50% Syringe 2-06 Route: l (D50W) 18:50: IVP, [place] 00 Dosing Weight 62.727, kg, ONCE, STAT, Start date: 02/28/22 12:50:00 PRIVATE DETECTIVE, Stop date: 02/28/22 12:50:00 PRIVATE DETECTIVE, Dextrose 50%: 12.5 gm = 25 mL Dextrose 2021-03 No 25 mL, [facility] 50% Syringe 2-06 Route: l (D50W) 18:50: IVP, [place] 00 Dosing Weight 62.727, kg, ONCE, STAT, Start date: 02/28/22 12:50:00 PRIVATE DETECTIVE, Stop date: 02/28/22 12:50:00 PRIVATE DETECTIVE, Dextrose 50%: 12.5 gm = 25 mL Dextrose 2021-03 No 25 mL, [facility] 50% Syringe 2-06 Route: l (D50W) 18:50: IVP, [place] 00 Dosing Weight 62.727, kg, ONCE, STAT, Start date: 02/28/22 12:50:00 PRIVATE DETECTIVE, Stop date: 02/28/22 12:50:00 PRIVATE DETECTIVE, Dextrose 50%: 12.5 gm = 25 mL Dextrose 2021-03 No 25 mL, [facility] 50% Syringe 2-06 Route: l (D50W) 18:50: IVP, [place] 00 Dosing Weight 62.727, kg, ONCE, STAT, Start date: 02/28/22 12:50:00 PRIVATE DETECTIVE, Stop date: 02/28/22 12:50:00 PRIVATE DETECTIVE, Dextrose 50%: 12.5 gm = 25 mL Saline 2021-03 No Notes: [facility] Flush 0.9% 2-06 Same as: l 18:17: BD [place] 00 Posiflush Sterile Saline 2021-03 No Notes: [facility] Flush 0.9% 2-06 Same as: l 18:17: BD [place] 00 Posiflush Sterile Saline 2021-03 No Notes: [facility] Flush 0.9% 2-06 Same as: l 18:17: BD [place] 00 Posiflush Sterile Saline 2021-03 No Notes: [facility] Flush 0.9% 2-06 Same as: l 18:17: BD [place] 00 Posiflush Sterile cholecalcif 2021-03 Yes 5000U QD Take 5,000 UT qian (D3-5) 1-08 Units by [facility] 5,000 Units 10:40: mouth 1 tablet 44 (one) time each day. midodrine 2021-03 Yes Take 2 UT (Proamatine 1-08 tablets [facility] ) 5 MG 10:40: twice tablet 44 daily cholecalcif 2021-03 Yes 5000U QD Take 5,000 UT qian (D3-5) 1-08 Units by [facility] 5,000 Units 10:40: mouth 1 tablet 44 (one) time each day. midodrine 2021-03 Yes Take 2 UT (Proamatine 1-08 tablets [facility] ) 5 MG 10:40: twice tablet 44 daily lacosamide 2021-03 Yes [id number] TAKE 1 U T (Vimpat) 1-08 TABLET BY [facility] 200 mg 00:00: MOUTH ON tablet 00 SUNDAY, tablet SUNDAY AND FRIDAYStre ngth: 200 mg levETIRAcet 2021-03 Yes [id number] TAKE ONE UT am (Keppra) 1-08 TABLET BY [facility] 500 MG 00:00: MOUTH tablet 00 THREE TIMES A WEEK (SUNDAY, SUNDAY, AND SUNDAY)Str ength: 500 mg lacosamide 2021-03 Yes [id number] TAKE 1 U T (Vimpat) 1-08 TABLET BY [facility] 200 mg 00:00: MOUTH ON tablet 00 SUNDAY, tablet SUNDAY AND FRIDAYStre ngth: 200 mg levETIRAcet 2021-03 Yes [id number] TAKE ONE UT am (Keppra) 1-08 TABLET BY [facility] 500 MG 00:00: MOUTH tablet 00 THREE TIMES A WEEK (SUNDAY, SUNDAY, AND SUNDAY)Str ength: 500 mg carbidopa-l 2021-03- No [id number] 2{tbl} Q.5D Take 2 UT evodopa 1-08 05-08 tablets by [facility] (Sinemet) 00:00: 04:59 mouth in 25-100 MG 00 :00 the tablet morning and 2 tablets in the evening. rotigotine 2021-03- No [id number] 1{patch QD Place 1 UT (Neupro) 6 04-02 05-08 } patch on [facility] MG/24HR 00:00: 04:59 the skin 1 00 :00 (one) time each day. topiramate 2021-03- No [id number] 50mg Q.5D Take 1 UT 50 MG 04-02-08 tablet (50 Health tablet 00:00: 04:59 mg total) 00 :00 by mouth in the morning and 1 tablet (50 mg total) in the evening. carbidopa-l 2021-03- No [id number] 2{tbl} Q.5D Take 2 UT evodopa 04-02 tablets by [facility] (Sinemet) 00:00: 04:59 mouth in 25-100 MG 00 :00 the tablet morning and 2 tablets in the evening. rotigotine 2021-03- No [id number] 1{patch QD Place 1 UT (Neupro) 6 04-02 } patch on [facility] MG/24HR 00:00: 04:59 the skin 1 00 :00 (one) time each day. topiramate 2021-03- No [id number] 50mg Q.5D Take 1 UT 50 MG 04-02 tablet (50 Health tablet 00:00: 04:59 mg total) 00 :00 by mouth in the morning and 1 tablet (50 mg total) in the evening. topiramate 2021-03- No [facility] 50 MG 03-31 Health tablet 00:00: 00:00 00 :00 topiramate 2021-03- No [facility] 50 MG 03-31 Health tablet 00:00: 00:00 00 :00 levETIRAcet 2021-03- No TAKE ONE U T am (Keppra) 0-30 01-31 TABLET BY [facility] 500 MG 00:00: 00:00 MOUTH tablet 00 :00 THREE TIMES A WEEK (SUNDAY, SUNDAY, AND SUNDAY) levETIRAcet 2021-03- No TAKE ONE U T am (Keppra) 0-30 - TABLET BY [facility] 500 MG 00:00: 00:00 MOUTH tablet 00 :00 THREE TIMES A WEEK (SUNDAY, SUNDAY, AND SUNDAY) lacosamide 2021-03- No TAKE 1 UT (Vimpat) 0-05 01-31 TABLET BY [facility] 200 mg 00:00: 00:00 MOUTH ON tablet 00 :00 SUNDAY, tablet SUNDAY AND SUNDAY lacosamide 2021-03- No TAKE 1 UT (Vimpat) 0-05 11-08 TABLET [facility] 200 mg 00:00: 00:00 MOUTH ON tablet [...] tablet 00 MOUTH EVERY DAY AT BEDTIME metoprolol 2021-03 Yes TAKE 2 UT tartrate 0-04 TABLETS BY [facility] (Lopressor) 00:00: MOUTH 50 MG 00 TWICE tablet DAILY - HOLD SBP LESS THAN 100 , HEART RATE LESS THAN 60 traZODone 2021-03 Yes TAKE 1/2 UT (Desyrel) 0-04 (ONE-HALF) [facility] 50 MG 00:00: TABLET BY tablet 00 MOUTH EVERY DAY AT BEDTIME clonazePAM 2021-0 Yes .5mg Take 0.5 UT (KlonoPIN) 9-07 mg by Health 0.5 MG 00:00: mouth tablet 00 every night. TAKE 1 TABLET BY MOUTH ONCE DAILY AT NIGHT clonazePAM 2021-0 Yes .5mg Take 0.5 UT (KlonoPIN) 9-07 mg by Health 0.5 MG 00:00: mouth tablet 00 every night. TAKE 1 TABLET BY MOUTH ONCE DAILY AT NIGHT lacosamide 2021-0 Yes 200mg Take [address] [facility] 200 mg Tab 7-04 tablet [facility]: (200 mg Medical 00 total) by Center mouth 3 (three) times a week after dialysis I. Max Daily Amount: 200 mg levETIRAcet 2021- Yes 500mg Take [address] [facility] am (KEPPRA) 7-04 (500 mg [facility] 500 mg/5 mL 00:00: total) by [facility] (5 mL) Soln 00 mouth 3 Cente r oral (three) solution times a week after dialysis I. lacosamide 2021-0 Yes 200mg Take [address] [facility] 200 mg Tab 7-04 tablet [facility] 00:00: (200 mg Medical 00 total) by Center mouth 3 (three) times a week after dialysis I. Max Daily Amount: 200 mg levETIRAcet 2022-0 Yes 500mg Take [address] [facility] am (KEPPRA) 7-04 (500 mg [facility] 500 mg/5 mL 00:00: total) by [facility] (5 mL) Soln 00 mouth 3 Cente r oral (three) solution times a week after dialysis I. lacosamide 2-0 Yes 200mg Take [address] [facility] 200 mg Tab 7-04 tablet [facility] 00:00: (200 mg Medical 00 total) by Center mouth 3 (three) times a week after dialysis I. Max Daily Amount: 200 mg levETIRAcet 2-0 Yes 500mg Take [address] [facility] am (KEPPRA) 7-04 (500 mg [facility] 500 mg/5 mL 00:00: total) by [facility] (5 mL) Soln 00 mouth 3 Cente r oral (three) solution times a week after dialysis I. lacosamide 2-0 Yes 200mg Take [address] [facility] 200 mg Tab 7-04 tablet [facility] 00:00: (200 mg Medical 00 total) by Center mouth 3 (three) times a week after dialysis I. Max Daily Amount: 200 mg levETIRAcet 2-0 Yes 500mg Take [address] [facility] am (KEPPRA) 7-04 (500 mg [facility] 500 mg/5 mL 00:00: total) by [facility] (5 mL) Soln 00 mouth 3 Cente r oral (three) solution times a week after dialysis I. lacosamide 2022-0 Yes 200mg Take [address] [facility] 200 mg Tab 7-04 tablet [facility] 00:00: (200 mg Medical 00 total) by Center mouth 3 (three) times a week after dialysis I. Max Daily Amount: 200 mg levETIRAcet 2022-0 Yes 500mg Take [address] [facility] am (KEPPRA) 7-04 (500 mg [facility] 500 mg/5 mL 00:00: total) by [facility] (5 mL) Soln 00 mouth 3 [...] a week after dialysis I. topiramate 2021-0 3- No 50mg Take [address] [facility] (TOPAMAX) 09-26-04 tablet (50 [facility] 50 MG 00:00: 23:59 mg total) Medica l tablet 00 :00 by mouth 3 Center (three) times a week after dialysis I. pyridoxine, 2021-2022- No 25mg QD Take [address] [facility] vitamin B6, 09-25- tablet (25 [facility] (B-6) 25 MG 00:00: 23:59 mg total) Medical tablet 00 :00 by mouth Center daily. pyridoxine, 2021-0 2022- No 25mg QD Take [...] 00 :00 by mouth Center daily. levETIRAcet 2021-2- No 1000mg QD Take [address] [facility] am (KEPPRA) 09-25 10-01 mLs (1,000 [facility] 500 mg/5 mL 00:00: 23:59 mg total) Medical (5 mL) Soln 00 :00 by mouth Cent er oral daily for solution 90 days. levETIRAcet 2021-0 2021- No 1000mg QD Take [address] [facility] am (KEPPRA) 09-25 10-01 mLs (1,000 [facility] 500 mg/5 mL 00:00: 23:59 mg total) Medical (5 mL) Soln 00 :00 by mouth Cent er oral daily for solution 90 days. levETIRAcet 2021-0 2021- No 1000mg QD Take [address] [facility] am (KEPPRA) 09-25 10-01 mLs (1,000 [facility] 500 mg/5 mL 00:00: 23:59 mg total) Medical (5 mL) Soln 00 :00 by mouth Cent er oral daily for solution 90 days. levETIRAcet 2021-0 2- No 1000mg QD Take [address] [facility] am (KEPPRA) 09-25 10-01 mLs (1,000 [facility] 500 mg/5 mL 00:00: 23:59 mg total) Medical (5 mL) Soln 00 :00 by mouth Cent er oral daily for solution 90 days. levETIRAcet 0 202- No 1000mg QD Take [address] [facility] [...] Medical tablet 11 Center carbidopa-l Yes 2{tbl} Q.[id number] Take [address] [facility] evodopa 7- [id number] tablets by [facility] (SINEMET) 16:12: 3D mouth 3 Medic al 25-100 mg 11 (three) Center per tablet times daily. rotigotine Yes 1{patch QD Place [address] [facility] [address] [facility] (NEUPRO) 6 7- } patch onto [facility] mg/24 hour 16:12: the skin Med ical 11 daily. Center pravastatin 0 Yes 20mg QD Take [address] [facility] (PRAVACHOL) 7-02 by mouth [facility] 20 MG 16:12: daily. Medical tablet 11 [place] carbidopa-l Yes 2{tbl} Q.[id number] Take [address] [facility] evodopa 7- [id number] tablets by [facility] (SINEMET) 16:12: 3D mouth 3 Medic al 25-100 mg 11 (three) Center per tablet times daily. rotigotine Yes 1{patch QD Place [address] [facility] (NEUPRO) 6 7-02 } patch onto [facility] mg/24 hour 16:12: the skin Med ical 11 daily. Center pravastatin 0 Yes 20mg QD Take [address] [facility] (PRAVACHOL) 7-02 by mouth Luke s 20 MG 16:12: daily. Medical tablet 11 Center carbidopa-l Yes 2{tbl} Q.[id number] Take [address] [facility] evodopa 7- [id number] tablets by [facility] (SINEMET) 16:12: 3D mouth 3 Medic al 25-100 mg 11 (three) Center per tablet times daily. rotigotine Yes 1{patch QD Place [address] [facility] (NEUPRO) 6 7- } patch onto [facility] mg/24 hour 16:12: the skin Med ical 11 daily. [place] pravastatin Yes 20mg QD Take [address] [facility] (PRAVACHOL) 7-02 by mouth Luke [facility] 20 MG 16:12: daily. Medical tablet 11 [place] carbidopa-l Yes 2{tbl} Q.[id number] Take [address] [facility] evodopa 7- [id number] tablets by [facility] (SINEMET) 16:12: 3D mouth 3 Medic al 25-100 mg 11 (three) Center per tablet times daily. rotigotine Yes 1{patch QD Place [address] [facility] (NEUPRO) 6 7- } patch onto [facility] mg/24 hour 16:12: the skin Med ical 11 daily. [place] pravastatin Yes 20mg QD Take [address] [facility] (PRAVACHOL) 09-24 by mouth Luke [facility] 20 MG 16:12: daily. Medical tablet 11 [place] carbidopal Yes 2{tbl} Q.[id number] Take [address] [facility] evodopa 7- [id number] tablets by [facility] (SINEMET) 16:12: 3D mouth 3 Medic al 25-100 mg 11 (three) Center per tablet times daily. rotigotine Yes 1{patch QD Place [address] [facility] (NEUPRO) 6 7- } patch onto [facility] mg/24 hour 16:12: the skin Med ical 11 daily. [place] ascorbic 2021- No 500mg QD Take [address] [facility] acid, 09-24 07-02 mg by [facility] vitamin C, 11:43: 00:00 mouth Medic al (ASCORBIC 48 :00 daily. [place] ACID WITH SKYLAR HIPS) 500 MG tablet [...] yridoxine -05 02-02 by mouth [facility] (MELATONIN, :43: 00:00 every Medi kurt WITH B6, 48 [...] daily. Max Daily Amount: 400 mg apixaban 2-0 Yes 5mg Q.5D Take 1 [...] daily. Max Daily Amount: 400 mg apixaban 2-0 Yes 5mg Q.5D Take 1 [...] daily. Max Daily Amount: 400 mg hydrALAZINE 2021-2022- No 100mg Take [address] [facility] [address] [facility] (APRESOLINE 09-24 tablet [facility] ) 100 MG 00:00: 23:59 (100 mg Medic al tablet 00 :00 total) by Center mouth every 8 (eight) hours. metoprolol 2021-0 2022- No 100mg Q.5D Take [address] [facility] tartrate 09-24- tablet [facility] (LOPRESSOR) 00:00: 23:59 (100 mg [...] No 50mg Take [address] [facility] (TOPAMAX) -05 02- tablet (50 [facility] 50 MG 00:00: 23:59 mg total) Medica l tablet 00 :00 by mouth Center every 12 (twelve) hours. hydrALAZINE 2021-0 2022- No 100mg Take [address] [facility] [address] [facility] (APRESOLINE 7- 07-02 tablet [facility] ) 100 MG 00:00: 23:59 (100 mg Medic al tablet 00 :00 total) by Center mouth every 8 (eight) hours. metoprolol 2021-0 3- No 100mg Q.5D Take [address] [facility] tartrate 7- 07-02 tablet [facility] (LOPRESSOR) 00:00: 23:59 (100 mg Me dical 100 MG 00 :00 total) by Center tablet mouth 2 (two) times daily. NIFEdipine 2021-0 2022- No 60mg Q.5D Take [address] [facility] (PROCARDIA- 7- 07-02 tablet (60 [facility] XL) 60 MG 00:00: 23:59 mg total) Me dical (OSM) 24 hr 00 :00 by mouth 2 Ce nter tablet (two) times daily. topiramate 2021-0 2022- No 50mg Take [address] [facility] (TOPAMAX) -05 02-02 tablet (50 [facility] 50 MG 00:00: 23:59 mg total) Medica l tablet 00 :00 by mouth Center every 12 (twelve) hours. hydrALAZINE 2021-0 2022- No 100mg Take [address] [facility] [address] [facility] (APRESOLINE -05 02- tablet [facility] ) 100 MG 00:00: 23:59 (100 mg Medic al tablet 00 :00 total) by Center mouth every 8 (eight) hours. metoprolol 2021-0 2022- No 100mg Q.5D Take [address] [facility] tartrate 7-05 02-02 tablet [facility] (LOPRESSOR) 00:00: 23:59 (100 [...] No 50mg Take [address] [facility] (TOPAMAX) 7-02 07-02 tablet (50 [facility] 50 MG [...] 100mg Q.5D Take [address] [facility] tartrate 09-24- tablet [facility] (LOPRESSOR) 00:00: 23:59 (100 mg Me dical 100 MG 00 :00 total) by Center tablet mouth 2 (two) times daily. NIFEdipine 2022- No 60mg Q.5D Take [address] [facility] (PROCARDIA- 09-24-02 tablet (60 L ukes XL) 60 MG [...] 60mg Q.5D Take [address] [facility] (PROCARDIA- 09-24-02 tablet (60 L ukes XL) 60 MG 00:00: 23:59 mg total) Me dical (OSM) 24 hr 00 :00 by mouth 2 Ce nter tablet (two) times daily. topiramate 2021-0 2023- No 50mg Take [address] [facility] (TOPAMAX) 09-24 tablet (50 [facility] 50 MG 00:00: 23:59 mg total) Medica l tablet 00 :00 by mouth Center every 12 (twelve) hours. clonazePAM 2022-0 2022- No .5mg QD Take [address] [facility] (KlonoPIN) 09-24 tablet [facility] 0.5 MG 00:00: 23:59 (0.5 mg Medical tablet 00 :00 total) by Center mouth nightly for 30 days. Max Daily Amount: 0.5 mg valproic 2022-0 2022- No 1000mg Take [address] [facility] acid, as 09-24- mLs (1,000 [facility] sodium 00:00: 23:59 mg total) Medic al salt, 00 :00 by mouth Center (DEPAKENE) every 8 250 mg/5 mL (eight) (5 mL) hours for solution 30 days. clonazePAM 2022-0 2022- No .5mg QD Take [address] [facility] (KlonoPIN) 09-24 tablet [facility] 0.5 MG 00:00: 23:59 (0.5 mg Medical tablet 00 :00 total) by Center mouth nightly for 30 days. Max Daily Amount: 0.5 mg valproic 2022-0 2022- No 1000mg Take [address] [facility] acid, as 09-24- mLs (1,000 [facility] sodium 00:00: 23:59 mg total) Medic al salt, 00 :00 by mouth Center (DEPAKENE) every 8 250 mg/5 mL (eight) (5 mL) hours for solution 30 days. clonazePAM 2022-0 2022- No .5mg QD Take [address] [facility] (KlonoPIN) 09-24 tablet [facility] 0.5 MG 00:00: 23:59 (0.5 mg Medical tablet 00 :00 total) by Center mouth nightly for 30 days. Max Daily Amount: 0.5 mg valproic 2022-0 2022- No 1000mg Take [address] [facility] acid, as 09-24- mLs (1,000 [facility] sodium 00:00: 23:59 mg total) Medic al salt, 00 :00 by mouth Center (DEPAKENE) every 8 250 mg/5 mL (eight) (5 mL) hours for solution 30 days. clonazePAM 2022-0 2022- No .5mg QD Take [address] [facility] (KlonoPIN) 09-24- tablet [facility] 0.5 MG 00:00: 23:59 (0.5 mg Medical tablet 00 :00 total) by Center mouth nightly for 30 days. Max Daily Amount: 0.5 mg valproic 2022-0 2022- No 1000mg Take [address] [facility] acid, as 09-24-01 mLs (1,000 [facility] sodium 00:00: 23:59 mg total) Medic al salt, 00 :00 by mouth Center (DEPAKENE) every 8 250 mg/5 mL (eight) (5 mL) hours for solution 30 days. clonazePAM 2022-0 2022- No .5mg QD Take [address] [facility] (KlonoPIN) 09-24- tablet [facility] 0.5 MG 00:00: 23:59 (0.5 mg Medical tablet 00 :00 total) by Center mouth nightly for 30 days. Max Daily Amount: 0.5 mg valproic 2022-0 2022- No 1000mg Take [address] [facility] acid, as 09-24- mLs (1,000 [facility] sodium 00:00: 23:59 mg total) Medic al salt, 00 :00 by mouth Center (DEPAKENE) every 8 250 mg/5 mL (eight) (5 mL) hours for solution 30 days. epoetin 2021-0 Yes anemia [id number] Inject [address] [facility] [address] [facility] pb 5-28 mL (10,000 [facility] (EPOGEN,PRO 00:00: Units Medic al CRIT) 00 total) Center 10,000 subcutaneo unit/mL usly 3 injection (three) times a week at bedtime TUE/BACILIO/SA T. epoetin 2021-0 Yes anemia [id number] Inject [address] [facility] [address] bp 5-28 mL (10,000 [facility] (EPOGEN,PRO 00:00: Units Medic al CRIT) 00 total) Center 10,000 subcutaneo unit/mL usly 3 injection (three) times a week at bedtime TUE/BACILIO/SA T. epoetin 2021-0 Yes anemia [id number] Inject [address] pb 5-28 mL (10,000 [facility] (EPOGEN,PRO 00:00: Units Medic al CRIT) 00 total) Center 10,000 subcutaneo unit/mL usly 3 injection (three) times a week at bedtime TUE/BACILIO/SA T. epoetin Yes anemia [id number] Inject [address] pb 5-28 mL (10,000 [facility] (EPOGEN,PRO 00:00: Units Medic al CRIT) 00 total) Center 10,000 subcutaneo unit/mL usly 3 injection (three) times a week at bedtime TUE/BACILIO/SA T. epoetin Yes anemia [id number] Inject [address] pb 5-28 mL (10,000 [facility] (EPOGEN,PRO 00:00: Units Medic al CRIT) 00 total) Center 10,000 subcutaneo unit/mL usly 3 injection (three) times a week at bedtime E/BACILIO/SA T. levETIRAcet Yes 1000mg Q24H Inject [facility] am (KEPPRA) 5-28 1,000 mg Luke s IVPB 00:00: intravenou Medical 00 sly daily. Center epoetin Yes anemia [id number] Inject [address] [facility] [address] pb 5-28 mL (10,000 [facility] (EPOGEN,PRO 00:00: Units Medic al CRIT) 00 total) Center 10,000 subcutaneo unit/mL usly 3 injection (three) times a week at bedtime E/BACILIO/SA T. levETIRAcet Yes 1000mg Q24H Inject [facility] am (KEPPRA) 5-28 1,000 mg [facility] IVPB 00:00: intravenou Medical 00 sly daily. Center epoetin Yes anemia [id number] Inject [address] [facility] [address] [facility] pb 5-28 mL (10,000 [facility] (EPOGEN,PRO 00:00: Units Medic al CRIT) 00 total) Center 10,000 subcutaneo unit/mL usly 3 injection (three) times a week at bedtime TUE/BACILIO/SA T. ergocalcife 0 2023- No [id number] Q7D Take [address] rol 5-28 05-28 capsule [facility] (ERGOCALCIF 00:00: 23:59 (50,000 Me dical QIAN) 1,250 00 :00 Units Center mcg (50,000 total) by unit) mouth once capsule a week. ergocalcife 2022-0 2023- No [id number] Q7D Take [address] rol 5-28 05-28 capsule [facility] (ERGOCALCIF 00:00: 23:59 (50,000 Me dical QIAN) 1,250 00 :00 Units Center mcg (50,000 total) by unit) mouth once capsule a week. ergocalcife 2022-0 2023- No [id number] Q7D Take [address] rol 5-28 05-28 capsule [facility] (ERGOCALCIF 00:00: 23:59 (50,000 Me dical QIAN) 1,250 00 :00 Units Center mcg (50,000 total) by unit) mouth once capsule a week. ergocalcife 2022-0 2023- No [id number] Q7D Take [address] rol 5-28 05-28 capsule [facility] (ERGOCALCIF 00:00: 23:59 (50,000 Me dical QIAN) 1,250 00 :00 Units Center mcg (50,000 total) by unit) mouth once capsule a week. ergocalcife 2022-0 2023- No [id number] Q7D Take [address] rol 5-28 05-28 capsule [facility] (ERGOCALCIF 00:00: 23:59 (50,000 Me dical QIAN) 1,250 00 :00 Units Center mcg (50,000 total) by unit) mouth once capsule a week. ergocalcife 2022-0 2023- No [id number] Q7D Take [address] rol 5-28 05-28 capsule [facility] (ERGOCALCIF 00:00: 23:59 (50,000 Me dical QIAN) 1,250 00 :00 Units Center mcg (50,000 total) by unit) mouth once capsule a week. ergocalcife 2022-0 2023- No [id number] Q7D Take [address] rol 5-28 05-28 capsule [facility] (ERGOCALCIF 00:00: 23:59 (50,000 Me dical QIAN) 1,250 00 :00 Units [facility] mcg (50,000 total) by unit) mouth once capsule a week. levETIRAcet 2021- No 1000mg Q24H Inject [facility] am (KEPPRA) 08-20- 1,000 mg [facility] IVPB 00:00: 00:00 intravenou Medica l 00 :00 sly daily. [facility] levETIRAcet 2021- No 1000mg Q24H Inject [facility] am (KEPPRA) 08-20- 1,000 mg [facility] IVPB 00:00: 00:00 intravenou Medica l 00 :00 sly daily. [facility] levETIRAcet 2021- No 1000mg Q24H Inject [facility] am (KEPPRA) 08-20- 1,000 mg [facility] IVPB 00:00: 00:00 intravenou Medica l 00 :00 sly daily. [facility] pravastatin Yes 20mg QD Take [address] [facility] (PRAVACHOL) 5-27 by mouth [facility] 20 MG 13:34: daily. Medical tablet 05 [facility] ascorbic Yes 500mg QD Take [address] [facility] acid, 5-27 mg by [facility] vitamin C, 13:34: mouth Medica l (ASCORBIC 05 daily. [facility] ACID WITH SKYLAR HIPS) 500 MG tablet carbidopa-l Yes 2{tbl} Q.[id number] Take [address] [facility] evodopa 5-27 [id number] tablets by [facility] (SINEMET) 13:34: 3D mouth 3 Medic al 25-100 mg 05 (three) Center per tablet times daily. rotigotine Yes 1{patch QD Place [address] [facility] (NEUPRO) 6 5-27 } patch onto [facility] es mg/24 hour 13:34: the skin Med ical 05 daily. [facility] pravastatin Yes 20mg QD Take [address] [facility] (PRAVACHOL) 5-27 by mouth [facility] 20 MG 13:34: daily. Medical tablet 05 [facility] ascorbic Yes 500mg QD Take [address] [facility] acid, 5-27 mg by [facility] vitamin C, 13:34: mouth Medica l (ASCORBIC 05 daily. [facility] ACID WITH SKYLAR HIPS) 500 MG tablet carbidopa-l 2021-0 Yes 2{tbl} Q.[id number] Take [address] [facility] evodopa 5-27 [id number] tablets by [facility] (SINEMET) 13:34: 3D mouth 3 Medic al 25-100 mg 05 (three) Center per tablet times daily. rotigotine 2021-0 Yes 1{patch QD Place [address] [facility] (NEUPRO) 6 5-27 } patch onto [facility] mg/24 hour 13:34: the skin Med ical 05 daily. Center melatonin/p 2021-0 Yes 10mg QD Take 10 [...] 22 :00 times Center daily. potassium 2021-0 2- No 20meq Q.5D Take [address] [facility] [...] to swallow the pills) . cholecalcif 2021-0 2022- No 5000U QD Take 5,[address] [facility] [...] to swallow the pills) . cholecalcif 2021-0 2022- No 5000U QD Take 5,[address] [facility] [...] (two) Center packet times daily. Missing or 2021-0 2022- No 2400mg Take 2,[address] [facility] Non-Formula [...] [facility] oiL 00:00: n into Medi ukrt 80-20 % 00 both eyes Center Oint nightly. ferrous 0 3- No 300mg QD 5 mLs (300 [facility] [...] Take [address] en 08-19 05- [facility] (TYLENOL) 00:00: 23:59 (650 mg Medi kurt 325 MG 00 :00 total) by Center tablet mouth every 4 (four) hours as needed for up to 360 days. acetaminoph 2022- No 650mg Take [address] [facility] [address] [facility] en 08-19 05- [facility] (TYLENOL) 00:00: 23:59 (650 mg Medi kurt 325 MG 00 :00 total) by Center tablet mouth every 4 (four) hours as needed for up to 360 days. acetaminoph 2021- No 650mg Take [address] en 08-19- [facility] (TYLENOL) 00:00: 00:00 (650 mg [...] Q24H Inject [address] [facility] (ROCEPHIN) 08-19- intravenou Poly kes 2 g in 00:00: [...] Inject [address] [facility] (ROCEPHIN) 5-27 07-02 intravenou Poly kes 2 g in 00:00: [...] No 100mg Inject [address] [facility] (VIMPAT) 08-19-02 mg [facility] IVPB 00:00: 00:00 intravenou Medica [...] 2021- No 0ug/min Inject [facility] (DIPRIVAN) 08-19-02 0-5,516 [facility] 10 mg/mL 00:00: 00:00 mcg/min [...] Inject [address] [facility] % in water 08-19- mLs (12.5 Virgie es (dextrose 00:00: 00:00 [...] Take [address] [facility] [address] [facility] (FLAGYL) 08-19- tablet [facility] 500 MG 00:00: 00:00 (500 mg Medical tablet 00 :00 total) by Center mouth every 8 (eight) hours. mupirocin 2021- No 1g Q.5D 1 g [facility] (BACTROBAN[facility] 08-19- Nasal [facility] 2 % 00:00: 00:00 route [...] on for up to 10 days. simethicone 2021-2021- No 80mg Take [address] [facility] (MYLICON) [...] on for up to 10 days. simethicone 0 2021- No 80mg Take [address] [facility] (MYLICON) 08-19 06-06 tablet (80 Virgie es 80 MG 00:00: 23:59 mg total) Medica l chewable 00 :00 by mouth Center tablet every 6 (six) hours as needed for Flatulence for up to 10 days. mupirocin 2021-0 2- No 1g Q.5D 1 g by [facility] (BACTROBAN) 08-19 Nasal [facility] 2 % 00:00: 23:59 route 2 Medical ointment 00 :00 (two) Center times daily for 7 days. ondansetron 2021-0 2022- No 4mg Take [address] [facility] (ZOFRAN-ODT 08-19 tablet (4 Poly kes ) 4 MG 00:00: 23:59 mg total) Medic al disintegrat 00 :00 by mouth Cent er ing tablet every 8 (eight) hours as needed for up to 7 days. mupirocin 2021-0 2021- No 1g Q.5D 1 g by [...] Center (V2B) IVPB for 1 dose. atenolol 2-0 2022- No 100mg QD Take [address] [facility] (TENORMIN) 5-19 05-19 mg by [facility] 100 MG 08:56: 00:00 mouth Medical tablet 42 :00 daily Pt Center takes when HR>100 . atenolol 202-0 2022- No 100mg QD Take 100 [facility] [...] :00 daily with Center tablet breakfast. ferrous 2-0 2022- No 324mg Take [address] [facility] gluconate 5-19 05-19 mg by [facility] (FERGON) 08:56: 00:00 mouth Medical 324 MG 17 :00 daily with Center tablet breakfast. ferrous 2-0 2022- No 324mg Take [address] [facility] gluconate 5-19 05-19 mg by [facility] (FERGON) 08:56: 00:00 mouth Medical 324 MG 17 :00 daily with Center tablet breakfast. ferrous 2-0 2022- No 324mg Take [address] [facility] gluconate 5-19 05-19 mg by [facility] (FERGON) 08:56: 00:00 mouth Medical 324 MG 17 :00 daily with Center tablet breakfast. ferrous 2-0 2022- No 324mg Take [address] [facility] gluconate 5-19 05-19 mg by [facility] (FERGON) 08:56: 00:00 mouth Medical 324 MG 17 :00 daily with Center tablet breakfast. cholecalcif 2021-0 Yes 5000U QD Take 5,000 [facility] qian (D3-5) 5-10 Units by [facility] 5,000 Units 10:53: mouth 1 tablet 50 (one) time each day. midodrine Yes Take 2 [facility] 10:53: twice tablet 50 daily rotigotine 2021- No [id number] 1{patch QD Place 1 [facility] (Neupro) 6 08-02 } patch on Heal th MG/24HR 00:00: 00:00 the skin 1 00 :00 (one) time each day. carbidopa-l 2021- No [id number] 2{tbl} Q.[id number] Take 2 [facility] evodopa 5-01-31 [id number] tablets by Health (Sinemet) 00:00: 00:00 3D mouth 3 25-100 MG 00 :00 (three) tablet times a day. rotigotine 2021- No [id number] 1{patch QD Place 1 [facility] (Neupro) 6 08-02 } patch on [facility] th MG/24HR 00:00: 00:00 the skin 1 00 :00 (one) time each day. carbidopa-l 2021- No [id number] 2{tbl} Q.[id number] Take 2 [facility] evodopa 08-02 [id number] tablets by Health (Sinemet) 00:00: 00:00 3D mouth 3 25-100 MG 00 :00 (three) tablet times a day. ondansetron 2021- No [id number] 8mg Q.[id number] Take 1 [facility] (Zofran) 8 08-02 [id number] tablet (8 Health MG tablet 00:00: 05:59 3D mg total) 00 :00 by mouth 3 (three) times a day. rotigotine 2021- No [id number] 1{patch QD Place 1 [facility] (Neupro) 6 08-02 } patch on Heal th MG/24HR 00:00: 05:59 the skin 1 00 :00 (one) time each day. carbidopa-l 2021- No [id number] 2{tbl} Q.[id number] Take 2 [facility] evodopa -01-30 [id number] tablets by Health (Sinemet) 00:00: 05:59 3D [...] 00 (one) time tablet each day. Ascorbic 2022-0 Yes 1{tbl} QD Take 1 [facility] Acid [...] tablet each day. ondansetron 2021- No 8mg Q.[id number] Take 8 mg [facility] (Zofran) 8 2- 05-10 [id number] by mouth 3 Health MG tablet 00:00: 00:00 3D (three) 00 :00 times a day. carbidopa-l 2021- No carbidopa [facility] evodopa 6-02 05-10 25 [facility] (Sinemet) 00:00: 00:00 mg-levodop 25-100 MG 00 :00 a 100 mg tablet tablet TAKE 2 TABLETS BY MOUTH THREE TIMES DAILY rotigotine 2021- No Neupro 6 [facility] (Neupro) 6 6- 05-10 mg/24 hour He alth MG/24HR 00:00: [...] by mouth Center daily for 30 days. ELIQUIS 5 2021- No 5mg Q.5D 5 mg 2 [facility] tablet 10-22 (two) [facility] 00:00: 00:00 times Medical 00 :00 daily. Center ELIQUIS 5 2- No 5mg Q.5D 5 mg 2 [facility] MG tablet 10-22 (two) [facility] 00:00: 00:00 times Medical 00 :00 daily. Center ELIQUIS 5 2019-2021- No 5mg Q.5D 5 mg 2 [facility] MG tablet 10-22 (two) [facility] 00:00: 00:00 times Medical 00 :00 daily. Center ELIQUIS 5 2019-2021- No 5mg Q.5D 5 mg 2 [facility] MG tablet 10-22 (two) [facility] 00:00: 00:00 times Medical 00 :00 daily. Center ELIQUIS 5 2019-2021- No 5mg Q.5D 5 mg 2 [facility] MG tablet 10-22 (two) [facility] 00:00: 00:00 times Medical 00 :00 daily. Center spironolact 2020-0 202- No 25mg QD Take 25 mg [facility] [...] ical 25 MG 00 :00 Center tablet ascorbic 2019- Yes 500mg Take 500 Univ ers acid, 1-04 mg by ity of vitamin C, 16:36: mouth. [place] 500 mg 39 Medical tablet Branch calcitriol 2018-03 Yes .25ug Take 0.25 U nivers 0.25 mcg 1-04 mcg by ity of capsule 16:36: mouth. [place] [address] Medical Branch Cholecalcif 2018-03 Yes 5000U Take [...] by ity o f 16:36: mouth at [place] [address] bedtime. Medical Branch ascorbic 2018-03 Yes 500mg Take 500 Univ ers acid, 1-04 mg by ity of vitamin C, 16:36: mouth. [place] 500 mg 39 Medical tablet Branch calcitriol 2018-03 Yes .25ug Take 0.25 U nivers 0.25 mcg 1-04 mcg by ity of capsule 16:36: mouth. [place] [address] Medical Branch Cholecalcif 2018-03 Yes 5000U Take [...] by ity o f 16:36: mouth at [place] [address] bedtime. Medical Branch ascorbic 2018-03 Yes 500mg Take 500 Univ ers acid, 1-04 mg by ity of vitamin C, 16:36: mouth. [place] 500 mg 39 Medical tablet Branch calcitriol 2018-03 Yes .25ug Take 0.25 U nivers 0.25 mcg 1-04 mcg by ity of capsule 16:36: mouth. [place] [address] Medical Branch Cholecalcif 2018-03 Yes 5000U Take [...] by ity o f 16:36: mouth at [place] [address] bedtime. Medical Branch ascorbic 2018-03 Yes 500mg Take 500 Univ ers acid, 1-04 mg by ity of vitamin C, 16:36: mouth. [place] 500 mg 39 Medical tablet Branch calcitriol 2018-03 Yes .25ug Take 0.25 U nivers 0.25 mcg 1-04 mcg by ity of capsule 16:36: mouth. [place] [address] Medical Branch Cholecalcif 2018-03 Yes 5000U Take [...] by ity o f 16:36: mouth at [place] [address] bedtime. Medical Branch ascorbic 2018-03 Yes 500mg Take 500 Univ ers acid, 1-04 mg by ity of vitamin C, 16:36: mouth. [place] 500 mg 39 Medical tablet Branch calcitriol 2018-03 Yes .25ug Take 0.25 U nivers 0.25 mcg 1-04 mcg by ity of capsule 16:36: mouth. [place] 39 Medical Branch Cholecalcif 2018-03 Yes 5000U [...] by ity o f 16:36: mouth at [place] [address] bedtime. Medical Branch ascorbic 2018-03 Yes 500mg Take 500 Univ ers acid, 1-04 mg by ity of vitamin C, 16:36: mouth. [place] 500 mg 39 Medical tablet Branch calcitriol 2018-03 Yes .25ug Take 0.25 U nivers 0.25 mcg 1-04 mcg by ity of capsule 16:36: mouth. [place] 39 Medical Branch Cholecalcif 2018-03 Yes 5000U [...] by ity o f 16:36: mouth at [place] [address] bedtime. Medical Branch aspirin 81 2018-03 Yes 81mg Take 81 mg U nivers mg EC 1-04 by mouth ity of tablet 16:32: daily. [place] [address] Medical Branch glimepiride 2018-03 Yes 4mg Take 4 mg U nivers 4 mg tablet 1-04 by mouth ity of 16:32: daily with [place] 24 breakfast. Medical Branch aspirin 81 2018-03 Yes 81mg Take 81 mg U nivers mg EC 1-04 by mouth ity of tablet 16:32: daily. [place] [address] Medical Branch glimepiride 2018-03 Yes 4mg Take 4 mg U nivers 4 mg tablet 1-04 by mouth ity of 16:32: daily with [place] 24 breakfast. Medical Branch aspirin 81 2018-03 Yes 81mg Take 81 mg U nivers mg EC 1-04 by mouth ity of tablet 16:32: daily. [place] [address] Medical Branch glimepiride 2018-03 Yes 4mg Take 4 mg U nivers 4 mg tablet 1-04 by mouth ity of 16:32: daily with [place] 24 breakfast. Medical Branch aspirin 81 2018-03 Yes 81mg Take 81 mg U nivers mg EC 1-04 by mouth ity of tablet 16:32: daily. [place] [address] Medical Branch glimepiride 2018-03 Yes 4mg Take 4 mg U nivers 4 mg tablet 1-04 by mouth ity of 16:32: daily with [place] 24 breakfast. Medical Branch aspirin 81 2018-03 Yes 81mg Take 81 mg U nivers mg EC 1-04 by mouth ity of tablet 16:32: daily. [address] Branch glimepiride 2018-03 Yes 4mg Take 4 mg U nivers 4 mg tablet 1-04 by mouth ity of 16:32: daily with [place] 24 breakfast. Medical Branch aspirin 81 2018-03 Yes 81mg Take 81 mg U nivers mg EC 1-04 by mouth ity of tablet 16:32: daily. [place] [address] Medical Branch glimepiride 2018-03 Yes 4mg Take 4 mg U nivers 4 mg tablet 1-04 by mouth ity of 16:32: daily with [place] 24 breakfast. Medical Branch metFORMIN 2018-03 Yes [...] A MEAL FOR Branch 90 DAYS metFORMIN 2019-1 Yes TAKE 1 Univer s 500 mg 0-08 TABLET BY ity of tablet 00:00: MOUTH ONCE 00 DAILY WITH Medical A MEAL FOR Branch 90 DAYS metFORMIN 2019- Yes TAKE 1 Univer s 500 mg 0-08 TABLET BY ity of tablet 00:00: MOUTH ONCE [place] 00 DAILY WITH Medical A MEAL FOR Branch 90 DAYS ONETOUCH 2019- Yes USE Univers VERIO FLEX 0-02 DIRECTED ity o f Misc 00:00: ONCE DAILY [place] [facility] Yes USE Univers VERIO FLEX 0-02 DIRECTED ity o f Misc 00:00: ONCE DAILY [place] [facility] 2019- Yes USE Univers VERIO FLEX 0-02 DIRECTED ity o f Misc 00:00: ONCE DAILY [place] [facility] ONETOUCH 2018- Yes USE Univers VERIO FLEX 0-02 DIRECTED ity o f Misc 00:00: ONCE DAILY [place] [facility] 2019- Yes USE Univers VERIO FLEX 0-02 DIRECTED ity o f Misc 00:00: ONCE DAILY [place] [facility] ONETOUCH 2019- Yes USE Univers VERIO FLEX 0-02 DIRECTED ity o f Misc 00:00: ONCE DAILY [place] [facility] clopidogrel 2019-0 Yes 75mg Take 75 mg Univers 75 mg 6-17 by mouth. ity of tablet 00:00: [place] [facility] clopidogrel 2019-0 Yes 75mg Take 75 mg Univers 75 mg 6-17 by mouth. ity of tablet 00:00: [place] [facility] clopidogrel 2019-0 Yes 75mg Take 75 mg Univers 75 mg 6-17 by mouth. ity of tablet 00:00: [place] [facility] clopidogrel 2019-0 Yes 75mg Take 75 mg Univers 75 mg 6-17 by mouth. ity of tablet 00:00: [place] [facility] clopidogrel 2019-0 Yes 75mg Take 75 mg Univers 75 mg 6-17 by mouth. ity of tablet 00:00: [place] [facility] clopidogrel 2019-0 Yes 75mg Take 75 mg [...] of hr patch 00:00: skin as [place] needed. Medical Branch cloniDINE 2016- Yes 1{patch Apply 1 Un mike 0.3 mg/24 8-04 } Patch to ity of hr patch 00:00: skin as [place] needed. Medical Branch cloniDINE Yes 1{patch Apply 1 Un mike 0.3 mg/24 8-04 } Patch to ity of hr patch 00:00: skin as [place] needed. Medical Branch cloniDINE Yes 1{patch Apply 1 Un mike 0.3 mg/24 8-04 } Patch to ity of hr patch 00:00: skin as [place] needed. Medical Branch pravastatin Yes 20mg Take 20 mg Univers 20 mg 8-02 by mouth ity of tablet 00:00: at [place] [address] bedtime. Medical Branch pravastatin Yes 20mg Take 20 mg Univers 20 mg 8-02 by mouth ity of tablet 00:00: at [place] [address] bedtime. Medical Branch pravastatin Yes 20mg Take 20 mg Univers 20 mg 8-02 by mouth ity of tablet 00:00: at [place] [address] bedtime. Medical Branch pravastatin Yes 20mg Take 20 mg Univers 20 mg 8-02 by mouth ity of tablet 00:00: at [place] [address] bedtime. Medical Branch pravastatin Yes 20mg Take 20 mg Univers 20 mg 8-02 by mouth ity of tablet 00:00: at [place] [address] bedtime. Medical Branch pravastatin Yes 20mg Take 20 mg Univers 20 mg 8-02 by mouth ity of tablet 00:00: at [place] [address] bedtime. Medical Branch atenolol 50 Yes 50mg [...] mouth ity of 00:00: daily. Medical Branch DARRENUVIA 50 2016-0 Yes 50mg Take 50 mg U nivers mg tablet 7-17 by mouth ity of 00:00: daily. Medical [facility] DARRENARTURO 50 2016-0 Yes 50mg Take 50 mg U nivers mg tablet 7-17 by mouth ity of 00:00: daily. Medical [facility] DARRENARTURO 50 0 Yes 50mg Take 50 mg U nivers mg tablet 7-17 by mouth ity of 00:00: daily. Medical [facility] DARRENARTURO 50 2016-0 Yes 50mg Take 50 mg U nivers mg tablet 7-17 by mouth ity of 00:00: daily. Medical [facility] DARRENARTURO 50 Yes 50mg Take 50 mg U nivers mg tablet 7-17 by mouth ity of 00:00: daily. Medical [facility] DARRENARTURO 50 2016-0 Yes 50mg Take 50 mg [...] (six) Branch hours as needed. doxazosin 4 2016- Yes 4mg Take 4 mg U nivers mg tablet 7-14 by mouth 2 ity of 00:00: (two) [place] 00 times Medical daily. Branch ramipril 5 2016- Yes 5mg Take 5 mg Un mike [...] of 00:00: (two) times Medical daily. Branch [facility] 10 Yes 10mg 10 mg Unive rs mg Tab 6-21 every ity of 00:00: evening. Medical Branch [facility] 10 Yes 10mg 10 mg Unive rs mg Tab 6-21 every ity of 00:00: evening. [facility] Branch [facility] 10 Yes 10mg 10 mg Unive rs mg Tab 6-21 every ity of 00:00: evening. [facility] Branch [facility] 10 Yes 10mg 10 mg Unive rs mg Tab 6-21 every ity of 00:00: evening. [facility] Branch [facility] 10 Yes 10mg 10 mg Unive rs mg Tab 6-21 every ity of 00:00: evening. [facility] Branch [facility] 10 Yes 10mg 10 mg Unive rs mg Tab 6-21 every ity of 00:00: evening. Medical Branch KLOR-CON Yes Univers M10 10 mEq 6-20 ity of tablet 00:00: [facility] Branch KLOR-CON Yes Univers M10 [...] 6-20 ity of tablet 00:00: [place] [facility] Branch cloniDINE Yes .1mg Take 0.1 [...] 2 [place] (two) Medical times Branch daily. NIFEdipine 2017-0 Yes 90mg Take 90 mg U nivers XL 90 mg 24 5-24 by mouth ity of hr tablet 00:00: daily. [place] [facility] NIFEdipine 2017-0 Yes 90mg Take 90 mg U nivers XL 90 mg 24 5-24 by mouth ity of hr tablet 00:00: daily. [place] [facility] NIFEdipine 2017-0 Yes 90mg Take 90 mg U nivers XL 90 mg 24 5-24 by mouth ity of hr tablet 00:00: daily. [address] NIFEdipine 2017-0 Yes 90mg Take 90 mg U nivers XL 90 mg 24 5-24 by mouth ity of hr tablet 00:00: daily. [address] NIFEdipine 2017-0 Yes 90mg Take 90 mg U nivers XL 90 mg 24 5-24 by mouth ity of hr tablet 00:00: daily. [address] NIFEdipine 2017-0 Yes 90mg Take 90 mg U nivers XL 90 mg 24 5-24 by mouth ity of hr tablet 00:00: daily. [address] hydroCHLORO 2017-0 Yes Univer s thiazide 25 5-23 ity of mg tablet 00:00: [address] hydroCHLORO 2017-0 Yes Univer s thiazide 25 5-23 ity of mg tablet 00:00: [address] hydroCHLORO 2017-0 Yes Univer s thiazide 25 5-23 ity of mg tablet 00:00: [address] hydroCHLORO 2017-0 Yes Univer s thiazide 25 5-23 ity of mg tablet 00:00: [facility] Branch hydroCHLORO 2017-0 Yes Univer s thiazide 25 5-23 ity of mg tablet 00:00: [facility] Branch hydroCHLORO 2017-0 Yes Univer s thiazide 25 5-23 ity of mg tablet 00:00: [place] [facility] Branch NIFEdipine 2016- Yes Essential 90mg QD Take 1 [facility] (PROCARDIA 4-06 hypertensio tablet by [employer]) 90 mg 00:00: n, benign mouth extended 00 daily. release tablet NIFEdipine Yes Essential 30mg QD Take 1 [facility] (PROCARDIA 4-06 hypertensio tablet by [employer]) 30 mg 00:00: n, benign mouth extended 00 daily Take release in tablet addition to 90 mg to make 120 mg daily. metFORMIN Yes Type 2 1000mg Q.5D Take 2 [facility] (GLUCOPHAGE 4-06 diabetes tablets by [employer] ) 500 mg 00:00: mellitus mouth 2 tablet 00 with times diabetic daily nephropathy (with , meals) unspecified Increased fpc dose. insulin use status NIFEdipine Yes Essential 90mg QD Take 1 [facility] (PROCARDIA 4-06 hypertensio tablet by [employer]) 90 mg 00:00: n, benign mouth extended 00 daily. release tablet NIFEdipine Yes Essential 30mg QD Take 1 [facility] (PROCARDIA 4-06 hypertensio tablet by [employer]) 30 mg 00:00: n, benign mouth extended 00 daily Take release in tablet addition to 90 mg to make 120 mg daily. metFORMIN Yes Type 2 1000mg Take 2 [facility] (GLUCOPHAGE 4-06 diabetes tablets by [employer] ) 500 mg 00:00: mellitus mouth 2 tablet 00 with times diabetic daily nephropathy (with , meals) unspecified Increased terminal supervisor dose. insulin use status NIFEdipine Yes Essential 90mg QD Take 1 [facility] (PROCARDIA 4-06 hypertensio tablet by [employer]) 90 mg 00:00: n, benign mouth extended 00 daily. release tablet NIFEdipine Yes Essential 30mg QD Take 1 [facility] (PROCARDIA 4-06 hypertensio tablet by [employer]) 30 mg 00:00: n, benign mouth extended 00 daily Take release in tablet addition to 90 mg to make 120 mg daily. metFORMIN Yes Type 2 1000mg Take 2 [facility] (GLUCOPHAGE 4-06 diabetes tablets by [employer] ) 500 mg 00:00: mellitus mouth 2 tablet 00 with times diabetic daily nephropathy (with , meals) unspecified Increased fpc dose. insulin use status NIFEdipine Yes Essential 90mg QD Take 1 [facility] (PROCARDIA 4-06 hypertensio tablet by [employer]) 90 mg 00:00: n, benign mouth extended 00 daily. release tablet NIFEdipine Yes Essential 30mg QD Take 1 [facility] (PROCARDIA 4-06 hypertensio tablet by [employer]) 30 mg 00:00: n, benign mouth extended 00 daily Take release in tablet addition to 90 mg to make 120 mg daily. metFORMIN Yes Type 2 1000mg Take 2 [facility] (GLUCOPHAGE 4-06 diabetes tablets by [employer] ) 500 mg 00:00: mellitus mouth 2 tablet 00 with times diabetic daily nephropathy (with , meals) unspecified Increased fpc dose. insulin use status NIFEdipine Yes Essential 90mg QD Take 1 [facility] (PROCARDIA 4-06 hypertensio tablet by [employer]) 90 mg 00:00: n, benign mouth extended 00 daily. release tablet NIFEdipine Yes Essential 30mg QD Take 1 [facility] (PROCARDIA 4-06 hypertensio tablet by [employer]) 30 mg 00:00: n, benign mouth extended 00 daily Take release in tablet addition to 90 mg to make 120 mg daily. metFORMIN Yes Type 2 1000mg Take 2 [facility] (GLUCOPHAGE 4-06 diabetes tablets by [employer] ) 500 mg 00:00: mellitus mouth 2 tablet 00 with times diabetic daily nephropathy (with , meals) unspecified Increased fpc dose. insulin use status NIFEdipine Yes Essential 90mg QD Take 1 [facility] (PROCARDIA 4-06 hypertensio tablet by [employer]) 90 mg 00:00: n, benign mouth extended 00 daily. release tablet NIFEdipine Yes Essential 30mg QD Take 1 [facility] (PROCARDIA 4-06 hypertensio tablet by [employer]) 30 mg 00:00: n, benign mouth extended 00 daily Take release in tablet addition to 90 mg to make 120 mg daily. metFORMIN Yes Type 2 1000mg Take 2 [facility] (GLUCOPHAGE 4-06 diabetes tablets by [employer] ) 500 mg 00:00: mellitus mouth 2 tablet 00 with times diabetic daily nephropathy (with , meals) unspecified Increased terminal supervisor dose. insulin use status NIFEdipine 2017-0 Yes Essential 90mg QD Take 1 [facility] (PROCARDIA 4-06 hypertensio tablet by [employer]) 90 mg 00:00: n, benign mouth extended 00 daily. release tablet NIFEdipine 0 Yes Essential 30mg QD Take 1 [facility] (PROCARDIA 4-06 hypertensio tablet by [employer]) 30 mg 00:00: n, benign mouth extended 00 daily Take release in tablet addition to 90 mg to make 120 mg daily. metFORMIN 2017-0 Yes Type 2 1000mg Take 2 [facility] (GLUCOPHAGE 4-06 diabetes tablets by [employer] ) 500 mg 00:00: mellitus mouth 2 tablet 00 with times diabetic daily nephropathy (with , meals) unspecified Increased terminal supervisor dose. insulin use status NIFEdipine Yes Essential 90mg QD Take 1 [facility] (PROCARDIA 4-06 hypertensio tablet by [employer]) 90 mg 00:00: n, benign mouth extended 00 daily. release tablet NIFEdipine 0 Yes Essential 30mg QD Take 1 [facility] (PROCARDIA 4-06 hypertensio tablet by [employer]) 30 mg 00:00: n, benign mouth extended 00 daily Take release in tablet addition to 90 mg to make 120 mg daily. metFORMIN 2017-0 Yes Type 2 1000mg Take 2 [facility] (GLUCOPHAGE 4-06 diabetes tablets by [employer] ) 500 mg 00:00: mellitus mouth 2 tablet 00 with times diabetic daily nephropathy (with , meals) unspecified Increased fpc dose. insulin use status NIFEdipine Yes Essential 90mg QD Take 1 [facility] (PROCARDIA 4-06 hypertensio tablet by [employer]) 90 mg 00:00: n, benign mouth extended 00 daily. release tablet NIFEdipine 0 Yes Essential 30mg QD Take 1 [facility] (PROCARDIA 4-06 hypertensio tablet by [employer]) 30 mg 00:00: n, benign mouth extended 00 daily Take release in tablet addition to 90 mg to make 120 mg daily. metFORMIN 2017-0 Yes Type 2 1000mg Q.5D Take 2 [facility] (GLUCOPHAGE 4-06 diabetes tablets by [employer] ) 500 mg 00:00: mellitus mouth 2 tablet 00 with times diabetic daily nephropathy (with , meals) unspecified Increased fpc dose. insulin use status NIFEdipine 0 Yes Essential 90mg QD Take 1 [facility] (PROCARDIA 4-06 hypertensio tablet by [employer]) 90 mg 00:00: n, benign mouth extended 00 daily. release tablet NIFEdipine 0 Yes Essential 30mg QD Take 1 [facility] (PROCARDIA 4-06 hypertensio tablet by [employer]) 30 mg 00:00: n, benign mouth extended 00 daily Take release in tablet addition to 90 mg to make 120 mg daily. metFORMIN Yes Type 2 1000mg Q.5D Take 2 [facility] (GLUCOPHAGE 4-06 diabetes tablets by [employer] ) 500 mg 00:00: mellitus mouth 2 tablet 00 with times diabetic daily nephropathy (with , meals) unspecified Increased terminal supervisor dose. insulin use status NIFEdipine Yes Essential 90mg QD Take 1 [facility] (PROCARDIA 4-06 hypertensio tablet by [employer]) 90 mg 00:00: n, benign mouth extended 00 daily. release tablet NIFEdipine Yes Essential 30mg QD Take 1 [facility] (PROCARDIA 4-06 hypertensio tablet by [employer]) 30 mg 00:00: n, benign mouth extended 00 daily Take release in tablet addition to 90 mg to make 120 mg daily. metFORMIN Yes Type 2 1000mg Q.5D Take 2 [facility] (GLUCOPHAGE 4-06 diabetes tablets by [employer] ) 500 mg 00:00: mellitus mouth 2 tablet 00 with times diabetic daily nephropathy (with , meals) unspecified Increased fpc dose. insulin use status NIFEdipine Yes Essential 90mg QD Take 1 [facility] (PROCARDIA 4-06 hypertensio tablet by [employer]) 90 mg 00:00: n, benign mouth extended 00 daily. release tablet NIFEdipine Yes Essential 30mg QD Take 1 [facility] (PROCARDIA 4-06 hypertensio tablet by [employer]) 30 mg 00:00: n, benign mouth extended 00 daily Take release in tablet addition to 90 mg to make 120 mg daily. metFORMIN Yes Type 2 1000mg Q.5D Take 2 [facility] (GLUCOPHAGE 4-06 diabetes tablets by [employer] ) 500 mg 00:00: mellitus mouth 2 tablet 00 with times diabetic daily nephropathy (with , meals) unspecified Increased fpc dose. insulin use status NIFEdipine Yes Essential 90mg QD Take 1 [facility] (PROCARDIA 4-06 hypertensio tablet by [employer]) 90 mg 00:00: n, benign mouth extended 00 daily. release tablet NIFEdipine Yes Essential 30mg QD Take 1 [facility] (PROCARDIA 4-06 hypertensio tablet by [employer]) 30 mg 00:00: n, benign mouth extended 00 daily Take release in tablet addition to 90 mg to make 120 mg daily. metFORMIN 2017 Yes Type 2 1000mg Q.5D Take 2 [facility] (GLUCOPHAGE 4-06 diabetes tablets by [employer] ) 500 mg 00:00: mellitus mouth 2 tablet 00 with times diabetic daily nephropathy (with , meals) unspecified Increased terminal supervisor dose. insulin use status NIFEdipine Yes Essential 90mg QD Take 1 [facility] (PROCARDIA 4-06 hypertensio tablet by [employer]) 90 mg 00:00: n, benign mouth extended 00 daily. release tablet NIFEdipine Yes Essential 30mg QD Take 1 [facility] (PROCARDIA 4-06 hypertensio tablet by [employer]) 30 mg 00:00: n, benign mouth extended 00 daily Take release in tablet addition to 90 mg to make 120 mg daily. metFORMIN Yes Type 2 1000mg Take 2 [facility] (GLUCOPHAGE 4-06 diabetes tablets by [employer] ) 500 mg 00:00: mellitus mouth 2 tablet 00 with times diabetic daily nephropathy (with , meals) unspecified Increased fpc dose. insulin use status NIFEdipine Yes Essential 90mg QD Take 1 [facility] (PROCARDIA 4-06 hypertensio tablet by [employer]) 90 mg 00:00: n, benign mouth extended 00 daily. release tablet NIFEdipine Yes Essential 30mg QD Take 1 [facility] (PROCARDIA 4-06 hypertensio tablet by [employer]) 30 mg 00:00: n, benign mouth extended 00 daily Take release in tablet addition to 90 mg to make 120 mg daily. metFORMIN Yes Type 2 1000mg Take 2 [facility] (GLUCOPHAGE 4-06 diabetes tablets by [employer] ) 500 mg 00:00: mellitus mouth 2 tablet 00 with times diabetic daily nephropathy (with , meals) unspecified Increased fpc dose. insulin use status hydrALAZINE Yes Essential 100mg Take 1 [facility] (APRESOLINE 3-31 hypertensio tablet by [employer] ) 100 mg 00:00: n mouth 3 tablet 00 times daily. aspirin Yes Essential 81mg QD Chew and H arris (ASPIRIN) 3-31 hypertensio swallow 1 [facility] 81 mg 00:00: n tablet by chewable 00 mouth tablet daily. pravastatin Yes Dyslipidemi 20mg Take 1 [facility] (PRAVACHOL) 3-31 a tablet by [facility] 20 mg 00:00: mouth at tablet 00 bedtime nightly Decreased dose. glimepiride Yes Type 2 DM 8mg QD Take 2 [facility] (AMARYL) 4 06-23 with CKD tablets by [facility] mg tablet 00:00: stage 4 and mouth 00 hypertensio every n morning (before breakfast) . lisinopril Yes Essential 40mg QD Take 1 [facility] (ZESTRIL) 06-23 hypertensio tablet by [facility] 40 mg 00:00: n mouth tablet 00 daily. NIFEdipine Yes Essential 30mg QD Take 1 [facility] (PROCARDIA 06-23 hypertensio tablet by [facility] XL) 30 mg 00:00: n mouth extended 00 daily Take release in tablet addition to Nifedipine 90mg to make a total of 120 mg daily. cloNIDine Yes Essential 1{patch Apply 1 [facility] (CATAPRES-T 06-23 hypertensio } Patch to [facility] TS-3) 0.3 00:00: n skin as mg/24 hr 00 directed patch weekly Switch Clonidine 0.3 mg tablet to [facility] patch. atenolol Yes Essential 100mg QD Take 2 H arris (TENORMIN) 06-23 hypertensio tablets by [facility] 50 mg 00:00: n mouth tablet 00 daily. furosemide Yes Essential 40mg Take 1 [facility] (LASIX) 40 06-23 hypertensio tablet by [facility] mg tablet 00:00: n mouth 00 every 8 hours If needed you can increase to 2 pills (80mg) every 8 hours. ergocalcife Yes Vitamin D 13820B Take 1 [facility] 06-23 deficiency capsule by [facility] (VITAMIN 00:00: mouth D2) 50,000 00 weekly. unit capsule hydrALAZINE Yes Essential 100mg Take 1 [facility] (APRESOLINE 06-23 hypertensio tablet by [facility] ) 100 mg 00:00: n mouth 3 tablet 00 times daily. aspirin 2017 Yes Essential 81mg QD Chew and H arris (ASPIRIN) 06-23 hypertensio swallow 1 [facility] 81 mg 00:00: n tablet by chewable 00 mouth tablet daily. pravastatin Yes Dyslipidemi 20mg Take 1 [facility] (PRAVACHOL) 06-23 a tablet by [facility] 20 mg 00:00: mouth at tablet 00 bedtime nightly Decreased dose. glimepiride Yes Type 2 DM 8mg QD Take 2 [facility] (AMARYL) 4 06-23 with CKD tablets by [facility] mg tablet 00:00: stage 4 and mouth 00 hypertensio every n morning (before breakfast) . lisinopril Yes Essential 40mg QD Take 1 [facility] (ZESTRIL) 06-23 hypertensio tablet by [facility] 40 mg 00:00: n mouth tablet 00 daily. NIFEdipine Yes Essential 30mg QD Take 1 [facility] (PROCARDIA 06-23 hypertensio tablet by [facility] XL) 30 mg 00:00: n mouth extended 00 daily Take release in tablet addition to Nifedipine 90mg to make a total of 120 mg daily. cloNIDine Yes Essential 1{patch Apply 1 [facility] (CATAPRES-T 06-23 hypertensio } Patch to [facility] TS-3) 0.3 00:00: n skin as mg/24 hr 00 directed patch weekly Switch Clonidine 0.3 mg tablet to [facility] patch. atenolol Yes Essential 100mg QD Take 2 H arris (TENORMIN) 06-23 hypertensio tablets by [facility] 50 mg 00:00: n mouth tablet 00 daily. furosemide Yes Essential 40mg Take 1 [facility] (LASIX) 40 06-23 hypertensio tablet by [facility] mg tablet 00:00: n mouth 00 every 8 hours If needed you can increase to 2 pills (80mg) every 8 hours. ergocalcife Yes Vitamin D [id number] Take 1 [facility] rol 06-23 deficiency capsule by [facility] (VITAMIN 00:00: mouth D2) 50,000 00 weekly. unit capsule hydrALAZINE Yes Essential 100mg Take 1 [facility] (APRESOLINE 06-23 hypertensio tablet by [facility] ) 100 mg 00:00: n mouth 3 tablet 00 times daily. aspirin Yes Essential 81mg QD Chew and H arris (ASPIRIN) 06-23 hypertensio swallow 1 [facility] 81 mg 00:00: n tablet by chewable 00 mouth tablet daily. pravastatin Yes Dyslipidemi 20mg Take 1 [facility] (PRAVACHOL) 06-23 a tablet by [facility] 20 mg 00:00: mouth at tablet 00 bedtime nightly Decreased dose. glimepiride Yes Type 2 DM 8mg QD Take 2 [facility] (AMARYL) 4 06-23 with CKD tablets by [facility] mg tablet 00:00: stage 4 and mouth 00 hypertensio every n morning (before breakfast) . lisinopril Yes Essential 40mg QD Take 1 [facility] (ZESTRIL) 3 hypertensio tablet by [facility] 40 mg 00:00: n mouth tablet 00 daily. NIFEdipine 2017 Yes Essential 30mg QD Take 1 [facility] (PROCARDIA 06-23 hypertensio tablet by [facility] XL) 30 mg 00:00: n mouth extended 00 daily Take release in tablet addition to Nifedipine 90mg to make a total of 120 mg daily. cloNIDine Yes Essential 1{patch Apply 1 [facility] (CATAPRES-T 06-23 hypertensio } Patch to [facility] TS-3) 0.3 00:00: n skin as mg/24 hr 00 directed patch weekly Switch Clonidine 0.3 mg tablet to [facility] patch. atenolol Yes Essential 100mg QD Take 2 H arris (TENORMIN) 06-23 hypertensio tablets by [facility] 50 mg 00:00: n mouth tablet 00 daily. furosemide Yes Essential 40mg Take 1 [facility] (LASIX) 40 06-23 hypertensio tablet by [facility] mg tablet 00:00: n mouth 00 every 8 hours If needed you can increase to 2 pills (80mg) every 8 hours. ergocalcife Yes Vitamin D 98247V Take 1 [facility] rol 06-23 deficiency capsule by [facility] (VITAMIN 00:00: mouth D2) 50,000 00 weekly. unit capsule hydrALAZINE Yes Essential 100mg Take 1 [facility] (APRESOLINE 06-23 hypertensio tablet by [facility] ) 100 mg 00:00: n mouth 3 tablet 00 times daily. aspirin 2017 Yes Essential 81mg QD Chew and H arris (ASPIRIN) 06-23 hypertensio swallow 1 [facility] 81 mg 00:00: n tablet by chewable 00 mouth tablet daily. pravastatin Yes Dyslipidemi 20mg Take 1 [facility] (PRAVACHOL) 3 a tablet by [facility] 20 mg 00:00: mouth at tablet 00 bedtime nightly Decreased dose. glimepiride 2016- Yes Type 2 DM 8mg QD Take 2 [facility] (AMARYL) 4 06-23 with CKD tablets by [facility] mg tablet 00:00: stage 4 and mouth 00 hypertensio every n morning (before breakfast) . lisinopril Yes Essential 40mg QD Take 1 [facility] (ZESTRIL) 3-31 hypertensio tablet by [facility] 40 mg 00:00: n mouth tablet 00 daily. NIFEdipine Yes Essential 30mg QD Take 1 [facility] (PROCARDIA 3-31 hypertensio tablet by [facility] XL) 30 mg 00:00: n mouth extended 00 daily Take release in tablet addition to Nifedipine 90mg to make a total of 120 mg daily. cloNIDine Yes Essential 1{patch Apply 1 [facility] (CATAPRES-T 3-31 hypertensio } Patch to [facility] TS-3) 0.3 00:00: n skin as mg/24 hr 00 directed patch weekly Switch Clonidine 0.3 mg tablet to [facility] patch. atenolol Yes Essential 100mg QD Take 2 H arris (TENORMIN) 3-31 hypertensio tablets by [facility] 50 mg 00:00: n mouth tablet 00 daily. furosemide Yes Essential 40mg Take 1 [facility] (LASIX) 40 3-31 hypertensio tablet by [facility] mg tablet 00:00: n mouth 00 every 8 hours If needed you can increase to 2 pills (80mg) every 8 hours. atenolol Yes Essential 100mg QD Take 2 [facility] (TENORMIN) 3-31 hypertensio tablets by [facility] 50 mg 00:00: n mouth tablet 00 daily. furosemide Yes Essential 40mg Take 1 [facility] (LASIX) 40 3-31 hypertensio tablet by [facility] mg tablet 00:00: n mouth 00 every 8 hours If needed you can increase to 2 pills (80mg) every 8 hours. ergocalcife Yes Vitamin D [id number] Take 1 [facility] rol 3-31 deficiency capsule by [facility] (VITAMIN 00:00: mouth D2) 50,000 00 weekly. unit capsule hydrALAZINE Yes Essential 100mg Take 1 [facility] (APRESOLINE 3-31 hypertensio tablet by [facility] ) 100 mg 00:00: n mouth 3 tablet 00 times daily. aspirin 2016- Yes Essential 81mg QD Chew and H arris (ASPIRIN) 3-31 hypertensio swallow 1 [facility] 81 mg 00:00: n tablet by chewable 00 mouth tablet daily. ergocalcife Yes Vitamin D [id number] Take 1 [facility] ro[facility] 3-31 deficiency capsule by [facility] (VITAMIN 00:00: mouth D2) 50,000 00 weekly. unit capsule pravastatin Yes Dyslipidemi 20mg Take 1 [facility] (PRAVACHOL) 3 a tablet by [facility] 20 mg 00:00: mouth at tablet 00 bedtime nightly Decreased dose. glimepiride Yes Type 2 DM 8mg QD Take 2 [facility] (AMARYL) 4 06-23 with CKD tablets by [facility] mg tablet 00:00: stage 4 and mouth 00 hypertensio every n morning (before breakfast) . lisinopril Yes Essential 40mg QD Take 1 [facility] (ZESTRIL) 06-23 hypertensio tablet by [facility] 40 mg 00:00: n mouth tablet 00 daily. NIFEdipine Yes Essential 30mg QD Take 1 [facility] (PROCARDIA 06-23 hypertensio tablet by [facility] XL) 30 mg 00:00: n mouth extended 00 daily Take release in tablet addition to Nifedipine 90mg to make a total of 120 mg daily. cloNIDine Yes Essential 1{patch Apply 1 [facility] (CATAPRES-T 06-23 hypertensio } Patch to [facility] TS-3) 0.3 00:00: n skin as mg/24 hr 00 directed patch weekly Switch Clonidine 0.3 mg tablet to [facility] patch. hydrALAZINE Yes Essential 100mg Take 1 [facility] (APRESOLINE 06-23 hypertensio tablet by [facility] ) 100 mg 00:00: n mouth 3 tablet 00 times daily. aspirin Yes Essential 81mg QD Chew and H arris (ASPIRIN) 06-23 hypertensio swallow 1 [facility] 81 mg 00:00: n tablet by chewable 00 mouth tablet daily. atenolol Yes Essential 100mg QD Take 2 [facility] arris (TENORMIN) 3- hypertensio tablets by [facility] 50 mg 00:00: n mouth tablet 00 daily. pravastatin Yes Dyslipidemi 20mg Take 1 [facility] (PRAVACHOL) 3 a tablet by [facility] 20 mg 00:00: mouth at tablet 00 bedtime nightly Decreased dose. furosemide Yes Essential 40mg Take 1 [facility] (LASIX) 40 06-23 hypertensio tablet by [facility] mg tablet 00:00: n mouth 00 every 8 hours If needed you can increase to 2 pills (80mg) every 8 hours. ergocalcife Yes Vitamin D [id number] Take 1 [facility] ro[facility] 06-23 deficiency capsule by [facility] (VITAMIN 00:00: mouth D2) 50,000 00 weekly. unit capsule hydrALAZINE Yes Essential 100mg Take 1 [facility] (APRESOLINE 06-23 hypertensio tablet by [facility] ) 100 mg 00:00: n mouth 3 tablet 00 times daily. aspirin Yes Essential 81mg QD Chew and H arris (ASPIRIN) 06-23 hypertensio swallow 1 [facility] 81 mg 00:00: n tablet by chewable 00 mouth tablet daily. pravastatin Yes Dyslipidemi 20mg Take 1 [facility] (PRAVACHOL) 06-23 a tablet by [facility] 20 mg 00:00: mouth at tablet 00 bedtime nightly Decreased dose. glimepiride Yes Type 2 DM 8mg QD Take 2 [facility] (AMARYL) 4 06-23 with CKD tablets by [facility] mg tablet 00:00: stage 4 and mouth 00 hypertensio every n morning (before breakfast) . lisinopril Yes Essential 40mg QD Take 1 [facility] (ZESTRIL) 06-23 hypertensio tablet by [facility] 40 mg 00:00: n mouth tablet 00 daily. NIFEdipine Yes Essential 30mg QD Take 1 [facility] (PROCARDIA 06-23 hypertensio tablet by [facility] XL) 30 mg 00:00: n mouth extended 00 daily Take release in tablet addition to Nifedipine 90mg to make a total of 120 mg daily. cloNIDine Yes Essential 1{patch Apply 1 [facility] (CATAPRES-T 06-23 hypertensio } Patch to [facility] TS-3) 0.3 00:00: n skin as mg/24 hr 00 directed patch weekly Switch Clonidine 0.3 mg tablet to [facility] patch. glimepiride Yes Type 2 DM 8mg QD Take 2 [facility] (AMARYL) 4 331 with CKD tablets by [facility] mg tablet 00:00: stage 4 and mouth 00 hypertensio every n morning (before breakfast) . lisinopril Yes Essential 40mg QD Take 1 [facility] (ZESTRIL) 06-23 hypertensio tablet by [facility] 40 mg 00:00: n mouth tablet 00 daily. NIFEdipine Yes Essential 30mg QD Take 1 [facility] (PROCARDIA 3-31 hypertensio tablet by [facility] XL) 30 mg 00:00: n mouth extended 00 daily Take release in tablet addition to Nifedipine 90mg to make a total of 120 mg daily. atenolol Yes Essential 100mg QD Take 2 [facility] (TENORMIN) 3-31 hypertensio tablets by [facility] 50 mg 00:00: n mouth tablet 00 daily. furosemide Yes Essential 40mg Take 1 [facility] (LASIX) 40 3- hypertensio tablet by [facility] mg tablet 00:00: n mouth 00 every 8 hours If needed you can increase to 2 pills (80mg) every 8 hours. ergocalcife Yes Vitamin D [id number] Take 1 [facility] 3- deficiency capsule by [facility] (VITAMIN 00:00: mouth D2) 50,000 00 weekly. unit capsule hydrALAZINE Yes Essential 100mg Take 1 [facility] (APRESOLINE 3-31 hypertensio tablet by [facility] ) 100 mg 00:00: n mouth 3 tablet 00 times daily. cloNIDine Yes Essential 1{patch Apply 1 [facility] (CATAPRES-T 06-23 hypertensio } Patch to [facility] TS-3) 0.3 00:00: n skin as mg/24 hr 00 directed patch weekly Switch Clonidine 0.3 mg tablet to [facility] patch. aspirin Yes Essential 81mg QD Chew and H arris (ASPIRIN) 3 hypertensio swallow 1 [facility] 81 mg 00:00: n tablet by chewable 00 mouth tablet daily. pravastatin Yes Dyslipidemi 20mg Take 1 [facility] (PRAVACHOL) 3 a tablet by [facility] 20 mg 00:00: mouth at tablet 00 bedtime nightly Decreased dose. glimepiride 2016- Yes Type 2 DM 8mg QD Take 2 [facility] (AMARYL) 4 3-31 with CKD tablets by [facility] mg tablet 00:00: stage 4 and mouth 00 hypertensio every n morning (before breakfast) . lisinopril Yes Essential 40mg QD Take 1 [facility] (ZESTRIL) 3-31 hypertensio tablet by [facility] 40 mg 00:00: n mouth tablet 00 daily. NIFEdipine Yes Essential 30mg QD Take 1 [facility] (PROCARDIA 3-31 hypertensio tablet by [facility] XL) 30 mg 00:00: n mouth [...] arris (TENORMIN) 06-23 hypertensio tablets by [facility] 50 mg 00:00: n mouth tablet 00 daily. furosemide Yes Essential 40mg Take 1 [facility] (LASIX) 40 06-23 hypertensio tablet by [facility] mg tablet 00:00: n mouth 00 every 8 hours If needed you can increase to 2 pills (80mg) every 8 hours. ergocalcife Yes Vitamin D 27906H Take 1 [facility] 06-23 deficiency capsule by [facility] (VITAMIN 00:00: mouth D2) 50,000 00 weekly. unit capsule hydrALAZINE Yes Essential 100mg Take 1 [facility] (APRESOLINE 06-23 hypertensio tablet by [facility] ) 100 mg 00:00: n mouth 3 tablet 00 times daily. aspirin Yes Essential 81mg QD Chew and H arris (ASPIRIN) 06-23 hypertensio swallow 1 [facility] 81 mg 00:00: n tablet by chewable 00 mouth tablet daily. pravastatin Yes Dyslipidemi 20mg Take 1 [facility] (PRAVACHOL) 06-23 a tablet by [facility] 20 mg 00:00: mouth at tablet 00 bedtime nightly Decreased dose. glimepiride Yes Type 2 DM 8mg QD Take 2 [facility] (AMARYL) 4 06-23 with CKD tablets by [facility] mg tablet 00:00: stage 4 and mouth 00 hypertensio every n morning (before breakfast) . lisinopril Yes Essential 40mg QD Take 1 [facility] (ZESTRIL) 06-23 hypertensio tablet by [facility] 40 mg 00:00: n mouth tablet 00 daily. NIFEdipine 2016- Yes Essential 30mg QD Take 1 [facility] (PROCARDIA 31 hypertensio tablet by [facility] XL) 30 mg 00:00: n mouth [...] H arris (TENORMIN) 3 hypertensio tablets by [facility] 50 mg 00:00: n mouth tablet 00 daily. furosemide Yes Essential 40mg Take 1 [facility] (LASIX) 40 06-23 hypertensio tablet by [facility] mg tablet 00:00: n mouth 00 every 8 hours If needed you can increase to 2 pills (80mg) every 8 hours. ergocalcife Yes Vitamin D [id number] Take 1 [facility] rol 06-23 deficiency capsule by [facility] (VITAMIN 00:00: mouth D2) 50,000 00 weekly. unit capsule hydrALAZINE Yes Essential 100mg Take 1 [facility] (APRESOLINE 06-23 hypertensio tablet by [facility] ) 100 mg 00:00: n mouth 3 tablet 00 times daily. aspirin Yes Essential 81mg QD Chew and H arris (ASPIRIN) 06-23 hypertensio swallow 1 [facility] 81 mg 00:00: n tablet by chewable 00 mouth tablet daily. pravastatin Yes Dyslipidemi 20mg Take 1 [facility] (PRAVACHOL) 06-23 a tablet by [facility] 20 mg 00:00: mouth at tablet 00 bedtime nightly Decreased dose. glimepiride Yes Type 2 DM 8mg QD Take 2 [facility] (AMARYL) 4 06-23 with CKD tablets by [facility] mg tablet 00:00: stage 4 and mouth 00 hypertensio every n morning (before breakfast) . lisinopril Yes Essential 40mg QD Take 1 [facility] (ZESTRIL) 3 hypertensio tablet by [facility] 40 mg 00:00: n mouth tablet 00 daily. NIFEdipine Yes Essential 30mg QD Take 1 [facility] (PROCARDIA 3-31 hypertensio tablet by [facility] XL) 30 mg 00:00: n mouth extended 00 daily Take release in tablet addition to Nifedipine 90mg to make a total of 120 mg daily. cloNIDine Yes Essential 1{patch Apply 1 [facility] (CATAPRES-T 3 hypertensio } Patch to [facility] TS-3) 0.3 00:00: n skin as mg/24 hr 00 directed patch weekly Switch Clonidine 0.3 mg tablet to [facility] patch. atenolol Yes Essential 100mg QD Take 2 [facility] arris (TENORMIN) 06-23 hypertensio tablets by [facility] 50 mg 00:00: n mouth tablet 00 daily. furosemide Yes Essential 40mg Take 1 [facility] (LASIX) 40 06-23 hypertensio tablet by [facility] mg tablet 00:00: n mouth 00 every 8 hours If needed you can increase to 2 pills (80mg) every 8 hours. ergocalcife Yes Vitamin D [id number] Take 1 [facility] rol 06-23 deficiency capsule by [facility] (VITAMIN 00:00: mouth D2) 50,000 00 weekly. unit capsule hydrALAZINE Yes Essential 100mg Take 1 [facility] (APRESOLINE 06-23 hypertensio tablet by [facility] ) 100 mg 00:00: n mouth 3 tablet 00 times daily. aspirin Yes Essential 81mg QD Chew and H arris (ASPIRIN) 06-23 hypertensio swallow 1 [facility] 81 mg 00:00: n tablet by chewable 00 mouth tablet daily. pravastatin Yes Dyslipidemi 20mg Take 1 [facility] (PRAVACHOL) 06-23 a tablet by [facility] 20 mg 00:00: mouth at tablet 00 bedtime nightly Decreased dose. glimepiride Yes Type 2 DM 8mg QD Take 2 [facility] (AMARYL) 4 06-23 with CKD tablets by [facility] mg tablet 00:00: stage 4 and mouth 00 hypertensio every n morning (before breakfast) . lisinopril Yes Essential 40mg QD Take 1 [facility] (ZESTRIL) 3 hypertensio tablet by [facility] 40 mg 00:00: n mouth tablet 00 daily. NIFEdipine Yes Essential 30mg QD Take 1 [facility] (PROCARDIA 31 hypertensio tablet by [facility] XL) 30 mg 00:00: n mouth extended 00 daily Take release in tablet addition to Nifedipine 90mg to make a total of 120 mg daily. cloNIDine Yes Essential 1{patch Apply 1 [facility] (CATAPRES-T 3- hypertensio } Patch to [facility] TS-3) 0.3 00:00: n skin as mg/24 hr 00 directed patch weekly Switch Clonidine 0.3 mg tablet to [facility] patch. atenolol Yes Essential 100mg QD Take 2 H arris (TENORMIN) 3 hypertensio tablets by [facility] 50 mg 00:00: n mouth tablet 00 daily. furosemide Yes Essential 40mg Take 1 [facility] (LASIX) 40 06-23 hypertensio tablet by [facility] mg tablet 00:00: n mouth 00 every 8 hours If needed you can increase to 2 pills (80mg) every 8 hours. ergocalcife Yes Vitamin D [id number] Take 1 [facility] ro[facility] 06-23 deficiency capsule by [facility] (VITAMIN 00:00: mouth D2) 50,000 00 weekly. unit capsule hydrALAZINE Yes Essential 100mg Take 1 [facility] (APRESOLINE 06-23 hypertensio tablet by [facility] ) 100 mg 00:00: n mouth 3 tablet 00 times daily. aspirin Yes Essential 81mg QD Chew and H arris (ASPIRIN) 06-23 hypertensio swallow 1 [facility] 81 mg 00:00: n tablet by chewable 00 mouth tablet daily. pravastatin Yes Dyslipidemi 20mg Take 1 [facility] (PRAVACHOL) 06-23 a tablet by [facility] 20 mg 00:00: mouth at tablet 00 bedtime nightly Decreased dose. glimepiride Yes Type 2 DM 8mg QD Take 2 [facility] (AMARYL) 4 06-23 with CKD tablets by [facility] mg tablet 00:00: stage 4 and mouth 00 hypertensio every n morning (before breakfast) . lisinopril Yes Essential 40mg QD Take 1 [facility] (ZESTRIL) 3 hypertensio tablet by [facility] 40 mg 00:00: n mouth tablet 00 daily. NIFEdipine Yes Essential 30mg QD Take 1 [facility] (PROCARDIA 3-31 hypertensio tablet by [facility] XL) 30 mg 00:00: n mouth [...] H arris (TENORMIN) 3-31 hypertensio tablets by [facility] 50 mg 00:00: n mouth tablet 00 daily. furosemide Yes Essential 40mg Take 1 [facility] (LASIX) 40 - hypertensio tablet by [facility] mg tablet 00:00: n mouth 00 every 8 hours If needed you can increase to 2 pills (80mg) every 8 hours. ergocalcife Yes Vitamin D [id number] Take 1 [facility] ro[facility] 3 deficiency capsule by [facility] (VITAMIN 00:00: mouth D2) 50,000 00 weekly. unit capsule hydrALAZINE Yes Essential 100mg Take 1 [facility] (APRESOLINE 06-23 hypertensio tablet by [facility] ) 100 mg 00:00: n mouth 3 tablet 00 times daily. aspirin Yes Essential 81mg QD Chew and H arris (ASPIRIN) 06-23 hypertensio swallow 1 [facility] 81 mg 00:00: n tablet by chewable 00 mouth tablet daily. pravastatin Yes Dyslipidemi 20mg Take 1 [facility] (PRAVACHOL) 06-23 a tablet by [facility] 20 mg 00:00: mouth at tablet 00 bedtime nightly Decreased dose. glimepiride Yes Type 2 DM 8mg QD Take 2 [facility] (AMARYL) 4 06-23 with CKD tablets by [facility] mg tablet 00:00: stage 4 and mouth 00 hypertensio every n morning (before breakfast) . lisinopril Yes Essential 40mg QD Take 1 [facility] (ZESTRIL) 3 hypertensio tablet by [facility] 40 mg 00:00: n mouth tablet 00 daily. NIFEdipine Yes Essential 30mg QD Take 1 [facility] (PROCARDIA 3-31 hypertensio tablet by [facility] XL) 30 mg 00:00: n mouth extended 00 daily Take release in tablet addition to Nifedipine 90mg to make a total of 120 mg daily. cloNIDine Yes Essential 1{patch Apply 1 [facility] (CATAPRES-T 3-31 hypertensio } Patch to [facility]-3) 0.3 00:00: n skin as mg/24 hr 00 directed patch weekly Switch Clonidine 0.3 mg tablet to [facility] patch. atenolol Yes Essential 100mg QD Take 2 H arris (TENORMIN) 3 hypertensio tablets by [facility] 50 mg 00:00: n mouth tablet 00 daily. furosemide Yes Essential 40mg Take 1 Warner (LASIX) 40 06-23 hypertensio tablet by [facility] mg tablet 00:00: n mouth 00 every 8 hours If needed you can increase to 2 pills (80mg) every 8 hours. ergocalcife Yes Vitamin D 82734N Take 1 [facility] rol 06-23 deficiency capsule by [facility] (VITAMIN 00:00: mouth D2) 50,000 00 weekly. unit capsule hydrALAZINE Yes Essential 100mg Take 1 [facility] (APRESOLINE 06-23 hypertensio tablet by [facility] ) 100 mg 00:00: n mouth 3 tablet 00 times daily. aspirin Yes Essential 81mg QD Chew and H arris (ASPIRIN) 06-23 hypertensio swallow 1 [facility] 81 mg 00:00: n tablet by chewable 00 mouth tablet daily. pravastatin Yes Dyslipidemi 20mg Take 1 [facility] (PRAVACHOL) 06-23 a tablet by [facility] 20 mg 00:00: mouth at tablet 00 bedtime nightly Decreased dose. glimepiride Yes Type 2 DM 8mg QD Take 2 [facility] (AMARYL) 4 06-23 with CKD tablets by [facility] mg tablet 00:00: stage 4 and mouth 00 hypertensio every n morning (before breakfast) . lisinopril Yes Essential 40mg QD Take 1 [facility] (ZESTRIL) 3 hypertensio tablet by [facility] 40 mg 00:00: n mouth tablet 00 daily. NIFEdipine Yes Essential 30mg QD Take 1 [facility] (PROCARDIA 31 hypertensio tablet by [facility] XL) 30 mg 00:00: n mouth [...] arris (TENORMIN) 06-23 hypertensio tablets by [facility] 50 mg 00:00: n mouth tablet 00 daily. furosemide Yes Essential 40mg Take 1 [facility] (LASIX) 40 06-23 hypertensio tablet by [facility] mg tablet 00:00: n mouth 00 every 8 hours If needed you can increase to 2 pills (80mg) every 8 hours. ergocalcife Yes Vitamin D 71342Y Take 1 [facility] rol 06-23 deficiency capsule by [facility] (VITAMIN 00:00: mouth D2) 50,000 00 weekly. unit capsule hydrALAZINE Yes Essential 100mg Take 1 [facility] (APRESOLINE 06-23 hypertensio tablet by [facility] ) 100 mg 00:00: n mouth 3 tablet 00 times daily. aspirin Yes Essential 81mg QD Chew and H arris (ASPIRIN) 06-23 hypertensio swallow 1 [facility] 81 mg 00:00: n tablet by chewable 00 mouth tablet daily. pravastatin Yes Dyslipidemi 20mg Take 1 [facility] (PRAVACHOL) 06-23 a tablet by [facility] 20 mg 00:00: mouth at tablet 00 bedtime nightly Decreased dose. glimepiride Yes Type 2 DM 8mg QD Take 2 [facility] (AMARYL) 4 06-23 with CKD tablets by [facility] mg tablet 00:00: stage 4 and mouth 00 hypertensio every n morning (before breakfast) . lisinopril Yes Essential 40mg QD Take 1 [facility] (ZESTRIL) 06-23 hypertensio tablet by [facility] 40 mg 00:00: n mouth tablet 00 daily. NIFEdipine Yes Essential 30mg QD Take 1 [facility] (PROCARDIA 06-23 hypertensio tablet by [facility] XL) 30 mg 00:00: n mouth extended 00 daily Take release in tablet addition to Nifedipine 90mg to make a total of 120 mg daily. cloNIDine Yes Essential 1{patch Apply 1 [facility] (CATAPRES-T 06-23 hypertensio } Patch to [facility] TS-3) 0.3 00:00: n skin as mg/24 hr 00 directed patch weekly Switch Clonidine 0.3 mg tablet to Catapres patch. atenolol Yes Essential 100mg QD Take 2 H arris (TENORMIN) 3-31 hypertensio tablets by [facility] 50 mg 00:00: n mouth tablet 00 daily. furosemide Yes Essential 40mg Take 1 [facility] (LASIX) 40 3-31 hypertensio tablet by [facility] mg tablet 00:00: n mouth 00 every 8 hours If needed you can increase to 2 pills (80mg) every 8 hours. ergocalcife Yes Vitamin D 45184H Take 1 [facility] rol 3-31 deficiency capsule by [facility] (VITAMIN 00:00: mouth D2) 50,000 00 weekly. unit capsule minoxidil Yes Essential 1.25mg Take 0.5 [facility] (LONITEN) 1-27 hypertensio tablets by [facility] 2.5 mg 00:00: n mouth tablet 00 every 8 hours. minoxidil Yes Essential 1.25mg Take 0.5 [facility] (LONITEN) 1-27 hypertensio tablets by [facility] 2.5 mg 00:00: n mouth tablet 00 every 8 hours. minoxidil Yes Essential 1.25mg Take 0.5 [facility] (LONITEN) 1-27 hypertensio tablets by [facility] 2.5 mg 00:00: n mouth tablet 00 every 8 hours. minoxidil Yes Essential 1.25mg Take 0.5 Warner (LONITEN) 1-27 hypertensio tablets by [facility] 2.5 mg 00:00: n mouth tablet 00 every 8 hours. minoxidil Yes Essential 1.25mg Take 0.5 [facility] (LONITEN) 1-27 hypertensio tablets by [facility] 2.5 mg 00:00: n mouth tablet 00 every 8 hours. minoxidil Yes Essential 1.25mg Take 0.5 [facility] (LONITEN) 1-27 hypertensio tablets by [facility] 2.5 mg 00:00: n mouth tablet 00 every 8 hours. minoxidil Yes Essential 1.25mg Take 0.5 [facility] (LONITEN) 1-27 hypertensio tablets by [facility] 2.5 mg 00:00: n mouth tablet 00 every 8 hours. minoxidil Yes Essential 1.25mg Take 0.5 [facility] (LONITEN) 1-27 hypertensio tablets by [facility] 2.5 mg 00:00: n mouth tablet 00 every 8 hours. minoxidil Yes Essential 1.25mg Take 0.5 [facility] (LONITEN) 1-27 hypertensio tablets by [facility] 2.5 mg 00:00: n mouth tablet 00 every 8 hours. minoxidil Yes Essential 1.25mg Take 0.5 [facility] (LONITEN) 1-27 hypertensio tablets by [facility] 2.5 mg 00:00: n mouth tablet 00 every 8 hours. minoxidil Yes Essential 1.25mg Take 0.5 Warner (LONITEN) 1-27 hypertensio tablets by [facility] 2.5 mg 00:00: n mouth tablet 00 every 8 hours. minoxidil Yes Essential 1.25mg Take 0.5 Warner (LONITEN) 1-27 hypertensio tablets by [facility] 2.5 mg 00:00: n mouth tablet 00 every 8 hours. minoxidil Yes Essential 1.25mg Take 0.5 Warner (LONITEN) 1-27 hypertensio tablets by [facility] 2.5 mg 00:00: n mouth tablet 00 every 8 hours. minoxidil Yes Essential 1.25mg Take 0.5 Warner (LONITEN) 1-27 hypertensio tablets by [facility] 2.5 mg 00:00: n mouth tablet 00 every 8 hours. minoxidil Yes Essential 1.25mg Take 0.5 Warner (LONITEN) 1-27 hypertensio tablets by [facility] 2.5 mg 00:00: n mouth tablet 00 every 8 hours. furosemide Yes CKD 40mg Q.5D Take 1 [facility] (LASIX) 40 1-23 (chronic tablet by [facility] mg tablet 00:00: kidney mouth 2 00 disease), times stage 3 daily. (moderate) potassium Yes Essential 10meq QD Take 1 [facility] chloride 1-23 hypertensio tablet by [facility] (KLOR-CON 00:00: n, benign mouth M10) [...] extended only with release lasix. tablet furosemide 2017- Yes CKD 40mg Q.5D Take 1 [facility] (LASIX) 40 1-23 (chronic tablet by [facility] mg tablet 00:00: kidney mouth 2 00 disease), times stage 3 daily. (moderate) potassium 2016- Yes Essential 10meq QD Take 1 Warner chloride 1-23 hypertensio tablet by [employer] (KLOR-CON 00:00: n, benign mouth M10) 10 mEq 00 daily Take extended only with release lasix. tablet furosemide Yes CKD 40mg Q.5D Take 1 Har[facility] (LASIX) 40 1-23 (chronic tablet by [facility] mg tablet 00:00: kidney mouth 2 00 disease), times stage 3 daily. (moderate) potassium 2016-0 Yes Essential 10meq QD Take 1 Warner chloride 1-23 hypertensio tablet by [employer] (KLOR-CON 00:00: n, benign mouth M10) 10 mEq 00 daily Take extended only with release lasix. tablet furosemide 2017-0 Yes CKD 40mg Q.5D Take 1 Har[facility] (LASIX) 40 1-23 (chronic tablet by [facility] mg tablet 00:00: kidney mouth 2 00 disease), times stage 3 daily. (moderate) potassium 2017-0 Yes Essential 10meq QD Take 1 Warner chloride 1-23 hypertensio tablet by [employer] (KLOR-CON 00:00: n, benign mouth M10) 10 [...] disease), times stage 3 daily. (moderate) furosemide Yes CKD 40mg Q.5D Take 1 [facility] (LASIX) 40 1-23 (chronic tablet by [facility] mg tablet 00:00: kidney mouth 2 00 disease), times stage 3 daily. (moderate) potassium Yes Essential 10meq QD Take 1 [facility] chloride 1-23 hypertensio tablet by [employer] (KLOR-CON 00:00: n, benign mouth M10) 10 mEq 00 daily Take extended only with release lasix. tablet potassium Yes Essential 10meq QD Take 1 [facility] chloride 1-23 hypertensio tablet by [employer] (KLOR-CON 00:00: n, benign mouth M10) 10 [...] Warner chloride 1-23 hypertensio tablet by [facility] (KLOR-CON 00:00: n, benign mouth M10) 10 mEq 00 daily Take extended only with release lasix. tablet furosemide Yes CKD 40mg Q.5D Take 1 Har[facility] (LASIX) 40 1-23 (chronic tablet by [facility] mg tablet 00:00: kidney mouth 2 00 disease), times stage 3 daily. (moderate) potassium Yes Essential 10meq QD Take 1 [facility] chloride 1-23 hypertensio tablet by [facility] (KLOR-CON 00:00: n, benign mouth M10) 10 mEq 00 daily Take extended only with release lasix. tablet furosemide Yes CKD 40mg Q.5D Take 1 [facility] (LASIX) 40 1-23 (chronic tablet by [facility] mg tablet 00:00: kidney mouth 2 00 disease), times stage 3 daily. (moderate) potassium 2016- Yes Essential 10meq QD Take 1 [facility] chloride 1-23 hypertensio tablet by [facility] (KLOR-CON 00:00: n, benign mouth M10) 10 mEq 00 daily Take extended only with release lasix. tablet cloNIDine 2015-03 Yes Essential .1mg Take 1 H arris HCl 0-28 hypertensio tablet by [facility] (CATAPRES) 00:00: n, benign mouth 3 0.1 mg 00 times tablet daily. cloNIDine 2015-03 Yes Essential .1mg Take 1 H arris HCl 0-28 hypertensio tablet by [facility] (CATAPRES) 00:00: n, benign mouth 3 0.1 mg 00 times tablet daily. cloNIDine 2015-03 Yes Essential .1mg Take 1 H arris HCl 0-28 hypertensio tablet by [facility] (CATAPRES) 00:00: n, benign mouth 3 0.1 mg 00 times tablet daily. cloNIDine 2015-03 Yes Essential .1mg Take 1 H arris HCl 0-28 hypertensio tablet by [facility] (CATAPRES) 00:00: n, benign mouth 3 0.1 mg 00 times tablet daily. cloNIDine 2015-03 Yes Essential .1mg Take 1 H arris HCl 0-28 hypertensio tablet by [facility] (CATAPRES) 00:00: n, benign mouth 3 0.1 mg 00 times tablet daily. cloNIDine 2015-03 Yes Essential .1mg Take 1 H arris HCl 0-28 hypertensio tablet by [facility] (CATAPRES) 00:00: n, benign mouth 3 0.1 mg 00 times tablet daily. cloNIDine 2015-03 Yes Essential .1mg Take 1 H arris HCl 0-28 hypertensio tablet by [facility] (CATAPRES) 00:00: n, benign mouth 3 0.1 mg 00 times tablet daily. cloNIDine 2015-03 Yes Essential .1mg Take 1 H arris HCl 0-28 hypertensio tablet by [facility] (CATAPRES) 00:00: n, benign mouth 3 0.1 mg 00 times tablet daily. cloNIDine 2015-03 Yes Essential .1mg Take 1 H arris HCl 0-28 hypertensio tablet by [facility] (CATAPRES) 00:00: n, benign mouth 3 0.1 mg 00 times tablet daily. cloNIDine 2015-03 Yes Essential .1mg Take 1 H arris HCl 0-28 hypertensio tablet by [facility] (CATAPRES) 00:00: n, benign mouth 3 0.1 mg 00 times tablet daily. cloNIDine 2015-03 Yes Essential .1mg Take 1 H arris HCl 0-28 hypertensio tablet by [facility] (CATAPRES) 00:00: n, benign mouth 3 0.1 mg 00 times tablet daily. cloNIDine 2015-03 Yes Essential .1mg Take 1 H arris HCl 0-28 hypertensio tablet by [facility] (CATAPRES) 00:00: n, benign mouth 3 0.1 mg 00 times tablet daily. cloNIDine 2015-03 Yes Essential .1mg Take 1 H arris HCl 0-28 hypertensio tablet by [facility] (CATAPRES) 00:00: n, benign mouth 3 0.1 mg 00 times tablet daily. cloNIDine 2015- Yes Essential .1mg Take 1 H arris HCl 0-28 hypertensio tablet by [facility] (CATAPRES) 00:00: n, benign mouth 3 0.1 mg 00 times tablet daily. cloNIDine 2015- Yes Essential .1mg Take 1 H arris HCl 0-28 hypertensio tablet by [facility] (CATAPRES) 00:00: n, benign mouth 3 0.1 mg 00 times tablet daily. cloNIDine 2015-0 Yes Essential .3mg Take 1 H arris HCl 9-19 hypertensio tablet by [facility] (CATAPRES) 00:00: n, benign mouth 3 0.3 mg 00 times tablet daily Increased dose. cloNIDine 2015-0 Yes Essential .3mg Take 1 H arris HCl 9-19 hypertensio tablet by [facility] (CATAPRES) 00:00: n, benign mouth 3 0.3 mg 00 times tablet daily Increased dose. cloNIDine 2015- Yes Essential .3mg Take 1 H arris HCl 9-19 hypertensio tablet by [facility] (CATAPRES) 00:00: n, benign mouth 3 0.3 mg 00 times tablet daily Increased dose. cloNIDine 2015-0 Yes Essential .3mg Take 1 H arris HCl 9-19 hypertensio tablet by [facility] (CATAPRES) 00:00: n, benign mouth 3 0.3 mg 00 times tablet daily Increased dose. cloNIDine 2015-0 Yes Essential .3mg Take 1 H arris HCl 9-19 hypertensio tablet by [facility] (CATAPRES) 00:00: n, benign mouth 3 0.3 mg 00 times tablet daily Increased dose. cloNIDine 2016-0 Yes Essential .3mg Take 1 H arris HCl 9-19 hypertensio tablet by [facility] (CATAPRES) 00:00: n, benign mouth 3 0.3 mg 00 times tablet daily Increased dose. cloNIDine 2016-0 Yes Essential .3mg Take 1 H arris HCl 9-19 hypertensio tablet by [facility] (CATAPRES) 00:00: n, benign mouth 3 0.3 mg 00 times tablet daily Increased dose. cloNIDine 2015-0 Yes Essential .3mg Take 1 H arris HCl 9-19 hypertensio tablet by [facility] (CATAPRES) 00:00: n, benign mouth 3 0.3 mg 00 times tablet daily Increased dose. cloNIDine 2016-0 Yes Essential .3mg Take 1 H arris HCl 9-19 hypertensio tablet by [facility] (CATAPRES) 00:00: n, benign mouth 3 0.3 mg 00 times tablet daily Increased dose. cloNIDine 2016-0 Yes Essential .3mg Take 1 H arris HCl 9-19 hypertensio tablet by [facility] (CATAPRES) 00:00: n, benign mouth 3 0.3 mg 00 times tablet daily Increased dose. cloNIDine 2016-0 Yes Essential .3mg Take 1 H arris HCl 9-19 hypertensio tablet by [facility] (CATAPRES) 00:00: n, benign mouth 3 0.3 mg 00 times tablet daily Increased dose. cloNIDine 2016-0 Yes Essential .3mg Take 1 H arris HCl 9-19 hypertensio tablet by [facility] (CATAPRES) 00:00: n, benign mouth 3 0.3 mg 00 times tablet daily Increased dose. cloNIDine 2015-0 Yes Essential .3mg Take 1 H arris HCl 9-19 hypertensio tablet by [facility] (CATAPRES) 00:00: n, benign mouth 3 0.3 mg 00 times tablet daily Increased dose. cloNIDine 2015-0 Yes Essential .3mg Take 1 H arris HCl 9-19 hypertensio tablet by [facility] (CATAPRES) 00:00: n, benign mouth 3 0.3 mg 00 times tablet daily Increased dose. cloNIDine 2015-0 Yes Essential .3mg Take 1 H arris HCl 9-19 hypertensio tablet by [facility] (CATAPRES) 00:00: n, benign mouth 3 0.3 mg 00 times tablet daily Increased dose. ergocalcife 2015-0 Yes Vitamin D 65193K Take 1 Warner rol 3-31 deficiency capsule by [facility] (VITAMIN 00:00: mouth D2) 50,000 00 weekly. unit capsule NIFEdipine 2015-0 Yes Essential 90mg QD Take 1 Warner (PROCARDIA 3-31 hypertensio tablet by [facility]) 90 mg 00:00: n, benign mouth extended 00 daily release Discontinu tablet e Amlodipine . ergocalcife 2015-0 Yes Vitamin D 82134O Take 1 Warner rol 3-31 deficiency capsule by [facility] (VITAMIN 00:00: mouth D2) 50,000 00 weekly. unit capsule NIFEdipine 2015-0 Yes Essential 90mg QD Take 1 [facility] (PROCARDIA 3-31 hypertensio tablet by [facility]) 90 mg 00:00: n, benign mouth extended 00 daily release Discontinu tablet e Amlodipine . ergocalcife 2015-0 Yes Vitamin D [id number] Take 1 [facility] rol 3-31 deficiency capsule by [facility] (VITAMIN 00:00: mouth D2) 50,000 00 weekly. unit capsule NIFEdipine 2015-0 Yes Essential 90mg QD Take 1 [facility] (PROCARDIA 3-31 hypertensio tablet by [facility]) 90 mg 00:00: n, benign mouth extended 00 daily release Discontinu tablet e Amlodipine . ergocalcife 2015-0 Yes Vitamin D [id number] Take 1 [facility] rol 3-31 deficiency capsule by [facility] (VITAMIN 00:00: mouth D2) 50,000 00 weekly. unit capsule NIFEdipine 2015-0 Yes Essential 90mg QD Take 1 [facility] (PROCARDIA 3-31 hypertensio tablet by [facility]) 90 mg 00:00: n, benign mouth extended 00 daily release Discontinu tablet e Amlodipine . ergocalcife 2015-0 Yes Vitamin D [id number] Take 1 [facility] rol 3-31 deficiency capsule by [facility] (VITAMIN 00:00: mouth D2) 50,000 00 weekly. unit capsule NIFEdipine 2015-0 Yes Essential 90mg QD Take 1 [facility] (PROCARDIA 3-31 hypertensio tablet by [facility]) 90 mg 00:00: n, benign mouth extended 00 daily release Discontinu tablet e Amlodipine . ergocalcife 2015-0 Yes Vitamin D [id number] Take 1 [facility] rol 3-31 deficiency capsule by [facility] (VITAMIN 00:00: mouth D2) 50,000 00 weekly. unit capsule NIFEdipine 2015-0 Yes Essential 90mg QD Take 1 [facility] (PROCARDIA 3-31 hypertensio tablet by [facility]) 90 mg 00:00: n, benign mouth extended 00 daily release Discontinu tablet e Amlodipine . ergocalcife 2015-0 Yes Vitamin D [id number] Take 1 Warner rol 3-31 deficiency capsule by [facility] (VITAMIN 00:00: mouth D2) 50,000 00 weekly. unit capsule NIFEdipine 2015-0 Yes Essential 90mg QD Take 1 [facility] (PROCARDIA 3-31 hypertensio tablet by [facility]) 90 mg 00:00: n, benign mouth extended 00 daily release Discontinu tablet e Amlodipine . ergocalcife 2015-0 Yes Vitamin D 28294X Take 1 Warner rol 3-31 deficiency capsule by [facility] (VITAMIN 00:00: mouth D2) 50,000 00 weekly. unit capsule NIFEdipine 0 Yes Essential 90mg QD Take 1 [facility] (PROCARDIA 3-31 hypertensio tablet by [facility]) 90 mg 00:00: n, benign mouth extended 00 daily release Discontinu tablet e Amlodipine . ergocalcife Yes Vitamin D [id number] Take 1 [facility] rol 3-31 deficiency capsule by [facility] (VITAMIN 00:00: mouth D2) 50,000 00 weekly. unit capsule NIFEdipine 0 Yes Essential 90mg QD Take 1 [facility] (PROCARDIA 3-31 hypertensio tablet by [facility]) 90 mg 00:00: n, benign mouth extended 00 daily release Discontinu tablet e Amlodipine . ergocalcife 2015- Yes Vitamin D [id number] Take 1 Warner rol 3-31 deficiency capsule by [facility] (VITAMIN 00:00: mouth D2) 50,000 00 weekly. unit capsule NIFEdipine 0 Yes Essential 90mg QD Take 1 [facility] (PROCARDIA 3-31 hypertensio tablet by [facility]) 90 mg 00:00: n, benign mouth extended 00 daily release Discontinu tablet e Amlodipine . ergocalcife Yes Vitamin D [id number] Take 1 Warner rol 3-31 deficiency capsule by [facility] (VITAMIN 00:00: mouth D2) 50,000 00 weekly. unit capsule NIFEdipine 2015-0 Yes Essential 90mg QD Take 1 [facility] (PROCARDIA 3-31 hypertensio tablet by [facility]) 90 mg 00:00: n, benign mouth extended 00 daily release Discontinu tablet e Amlodipine . ergocalcife 2015-0 Yes Vitamin D [id number] Take 1 [facility] rol 3-31 deficiency capsule by [facility] (VITAMIN 00:00: mouth D2) 50,000 00 weekly. unit capsule NIFEdipine 2015-0 Yes Essential 90mg QD Take 1 [facility] (PROCARDIA 3-31 hypertensio tablet by [facility]) 90 mg 00:00: n, benign mouth extended 00 daily release Discontinu tablet e Amlodipine . ergocalcife 2015-0 Yes Vitamin D 32534C Take 1 [facility] rol 3-31 deficiency capsule by [facility] (VITAMIN 00:00: mouth D2) 50,000 00 weekly. unit capsule NIFEdipine Yes Essential 90mg QD Take 1 [facility] (PROCARDIA 3-31 hypertensio tablet by [facility]) 90 mg 00:00: n, benign mouth extended 00 daily release Discontinu tablet e Amlodipine . ergocalcife Yes Vitamin D [id number] Take 1 [facility] rol 3-31 deficiency capsule by [facility] (VITAMIN 00:00: mouth D2) 50,000 00 weekly. unit capsule NIFEdipine Yes Essential 90mg QD Take 1 [facility] (PROCARDIA 3-31 hypertensio tablet by [facility]) 90 mg 00:00: n, benign mouth extended 00 daily release Discontinu tablet e Amlodipine . ergocalcife Yes Vitamin D [id number] Take 1 [facility] rol 3-31 deficiency capsule by [facility] (VITAMIN 00:00: mouth D2) 50,000 00 [...] mg tablet 00:00: rhinitis mouth 00 daily. pravastatin pravastatin No 1 Q1D pravastati [facility] [...] MWF S ON MW HEMODIALYS IS ON [facility] levetiracet levetiracet No 1000mg Q1D levetirace [...] A DAY HEMODIALYSI HEMODIALYSI AFTER S ON [facility] S ON [facility] HEMODIALYS IS ON [facility] levetiracet levetiracet No 1000mg Q1D levetirace [...] A DAY HEMODIALYSI HEMODIALYSI AFTER S ON [facility] S ON [facility] HEMODIALYS IS ON [facility] levetiracet levetiracet No 1000mg Q1D levetirace [...] DAILY ergocalcife ergocalcife No ergocalcif [facility] (vitamin (vitamin (vitamin D2) 1,250 D2) [...] Yes Eric 1 capsule [facility] Ferr[facility] Ferrous Yes Eric 1 tablet Co mmon Sulfate Sulfate [facility] Vitamin C Vitamin C Yes Eric as Co mmon Rodriguez directed [facility] Pravastatin Pravastatin Yes Eric 1 tablet Common Sodium Sodium Rodriguez [facility] Sevelamer Sevelamer Yes Eric 1 packet Common Carbonate Carbonate Rodriguez mixed with [facility] 30 ml of - [facility] water with [facility] Vitamin B Vitamin B Yes Eric as Co mmon Complex Complex Rodriguez directed Spiri t [facility] Doxazosin Doxazosin Yes Eric 1 tablet Common Mesylate [facility] Eliquis Eliquis Yes Eric TAKE 1 Comm on Rodriguez TABLET BY [facility] - [facility] TWICE [facility] DAILY FOR [facility] 90 DAYS [facility] NIFEdipine NIFEdipine Yes Eric TAKE 1 Common ER ER Rodriguez TABLET BY [facility] EVERY [address] [facility] HOURS [facility] Metformin Metformin Yes Eric 1 tablet Common HCl HCl Rodriguez with a [facility] meal [facility] Vitamin D-3 Vitamin D-3 Yes Eric as Common Rodriguez directed [facility] Melatonin Melatonin Yes Eric 1 capsule Common Rodriguez at bedtime [facility] as needed - [facility] with food [facility] Metformin Metformin Yes Eric 1 tablet Common HCl HCl Rodriguez with a Spirit meal - [facility] Atenolol Atenolol Yes Eric 1 tablet Common Rodriguez [facility] Sevelamer Sevelamer No TID Sevelamer Carbonate [...] 8 t} Mesylate 8 MG MG MG Immunizations Ordered Immunization Filled Immunization Date Status Commen ts Source Name Name Influenza, seasonal, 2022-01-30 Completed [facility]:00 Influenza, seasonal, 2022-01-30 Completed [facility]:00 influenza, seasonal, influenza, seasonal, 2016-01-21 [...] [facility] influenza, seasonal, influenza, seasonal, 2015-01-14 Completed [facility] [...] PCV 13 00:00:00 Influenza Vaccine 2015-01-14 Completed [facility] 00[facility]00:00 Pneumococcal 2015-01-14 [facility]:00 mL injection Influenza Vaccine 2015-01-14 Completed [facility] 00:00:00 Pneumococcal 2015-01-14 Completed [facility] 13-valent conj 0.5 00:00:00 mL injection Influenza Vaccine 2015-01-14 Completed [facility] 00:00:00 Pneumococcal 2015-01-14 Completed [facility] 13-valent conj 0.5 00:00:00 mL injection Influenza Vaccine 2015-01-14 Completed [facility] 00:00:00 Pneumococcal 2015-01-14 Completed [facility] 13-valent conj 0.5 00:00:00 mL injection Influenza Vaccine 2015-01-14 Completed [facility] 00:00:00 Pneumococcal 2015-01-14 Completed [facility] 13-valent conj 0.5 00:00:00 mL injection Influenza Vaccine 2015-01-14 Completed [facility] 00:00:00 Pneumococcal 2015-01-14 Completed [facility] 13-valent conj 0.5 00:00:00 mL injection Influenza Vaccine 2015-01-14 Completed [facility] 00:00:00 Pneumococcal 2015-01-14 [facility]00 mL injection Influenza Vaccine 2015-01-14 Completed [facility] 00:00:00 Pneumococcal 2015-01-14 [facility] 13-valent conj 0.5 00:00:00 mL injection Influenza Vaccine 2015-01-14 Completed [facility] 00:00:00 Pneumococcal 2015-01-14 Completed [facility] 13-valent conj 0.5 00:00:00 mL injection [...] 00:00:00 mL injection Influenza Vaccine 2015-01-14 Completed [facility] 00:00:00 Pneumococcal 2015-01-14 Completed [facility] 13-valent conj 0.5 00:00:00 mL injection Influenza Pre-Epic 2015-01-[address] [facility] 00:00:00 [facility] Pneumococcal 2015-01-[address] [facility] Conjugate (Prevnar) 00:00:00 [facility] 13-Valent Influenza Three-TIV 2015-01-14 [facility] PF 5+ YR 00:00:00 [facility] Pneumococcal 2015-01-[address] [facility] Conjugate (Prevnar) 00:00:00 [facility] 13-Valent Influenza Pre-Epic 2015-01-[address] [facility] 00:00:00 [facility] Pneumococcal 2015-01-[address] [facility] Conjugate (Prevnar) 00:00:00 [facility] 13-Valent Influenza Three-TIV 2015-01-14 Completed [facility] PF 5+ YR 00:00:00 [facility] Pneumococcal 2015-01-[address] [facility] Conjugate (Prevnar) 00:00:00 [facility] 13-Valent Influenza Pre-Epic 2015-01-[address] [facility] 00:00:00 [facility] Pneumococcal 2015-01-[address] [facility] Conjugate (Prevnar) 00:00:00 [facility] 13-Valent Influenza Three-TIV 2015-01-14 Completed [facility] PF 5+ YR 00:00:00 [facility] Pneumococcal 2015-01-[address] [facility] Conjugate (Prevnar) 00:00:00 [facility] 13-Valent Influenza Pre-Epic 2015-01-[address] [facility] 00:00:00 [facility] Pneumococcal 2015-01-[address] [facility] Conjugate (Prevnar) 00:00:00 [facility] 13-Valent Influenza Three-TIV 2015-01-14 Com[facility] PF 5+ YR 00:00:00 [facility] Pneumococcal 2015-01-[address] [facility] Conjugate (Prevnar) 00:00:00 [facility] 13-Valent Influenza Pre-Epic 2015-01-[address] [facility] 00:00:00 [facility] Pneumococcal 2015-01-[address] [facility] Conjugate (Prevnar) 00:00:00 [facility] 13-Valent Influenza Three-TIV 2015-01-14 Com[facility] PF 5+ YR 00:00:00 [facility] Pneumococcal 2015-01-[address] [facility] Conjugate (Prevnar) 00:00:00 [facility] 13-Valent Influenza Pre-Epic 2015-01-[address] [facility] 00:00:00 [facility] Pneumococcal 2015-01-[address] [facility] Conjugate (Prevnar) 00:00:00 [facility] 13-Valent Influenza Three-TIV 2015-01-14 Com[facility] PF 5+ YR 00:00:00 [facility] Pneumococcal 2015-01-[address] [facility] Conjugate (Prevnar) 00:00:00 [facility] 13-Valent Influenza Pre-Epic 2015-01-[address] [facility] 00:00:00 [facility] Pneumococcal 2015-01-[address] [facility] Conjugate (Prevnar) 00:00:00 [facility] 13-Valent Influenza Three-TIV 2015-01-14 [facility] PF 5+ YR 00:00:00 [facility] Pneumococcal 2015-01-[address] [facility] Conjugate (Prevnar) 00:00:00 [facility] 13-Valent influenza, seasonal, influenza, seasonal, 2014-02-09 Completed [facility] [...] preservative free Influenza Vaccine 2014-02-09 Completed [facility] 00:00:00 [...] [facility] 00:00:00 Influenza Pre-Epic 2014-02-09 Completed [facility] 00:00:00 [facility] Influenza Three-TIV 2014-02-09 Completed CLAY[facility] Toro PF 5+ YR 00:00:00 [facility] Influenza Pre-Epic 2014-02-[address] [...] Pre-Epic 2014-02-[address] [facility] 00:00:00 [facility] Influenza Three-TIV 2014-02-09 [facility] PF 5+ YR 00:00:00 [facility] Influenza Pre-Epic 2014-02-[address] [facility] 00[facility]00:00 [facility] Influenza Three-TIV 2014-02-09 [facility] PF 5+ YR 00:00:00 [facility] Influenza Pre-Epic 2014-02-[address] [facility] 00:00:00 [facility] Influenza Three-TIV 2014-02-09 [facility] PF 5+ YR 00:00:00 [facility] influenza, seasonal, influenza, seasonal, 2013-01-20 Completed [facility] [...] Pre-Epic 2013-01-[address] [facility] 00:00:00 [facility] Influenza Three-TIV 2013-01-20 [facility] PF 5+ YR 00:00:00 [facility] Influenza Pre-Epic 2013-01-[address] [facility] PF 5+ YR 00:00:00 [facility] Influenza Pre-Epic 2013-01-[address] [facility] 00:00:00 [facility] Influenza Three-TIV 2013-01-20 [facility] 5+ [facility]:00 [facility] influenza, seasonal, influenza, seasonal, 2010-12-16 Completed [facility] [...] free preservative free Influenza Vaccine 2010-12-16 Completed [facility] 00:00:00 Influenza Vaccine 2010-12-16 Completed [facility] 00:00:00 Influenza Vaccine 2010-12-16 Completed [facility] 00:00:00 Influenza Vaccine 2010-12-16 Completed [facility] 00:00:00 Influenza Vaccine 2010-12-16 Completed [facility] 00:00:00 Influenza Vaccine 2010-12-16 Completed [facility] 00:00:00 Influenza Vaccine 2010-12-16 Completed [facility] 00:00:00 Influenza Vaccine 2010-12-16 Completed [facility] 00:00:00 Influenza Vaccine 2010-12-16 Completed [facility] 00:00:00 Influenza Vaccine 2010-12-16 Completed [facility] 00:00:00 Influenza Vaccine 2010-12-16 Completed [facility] 00:00:00 Influenza Vaccine 2010-12-16 Completed [facility] 00:00:00 Influenza Vaccine 2010-12-16 Completed [facility] 00:00:00 Influenza Vaccine 2010-12-16 Completed [facility] 00:00:00 Influenza Vaccine 2010-12-16 Completed [facility] 00:00:00 Influenza Pre-Epic 2010-12-[address] [facility] 00:00:00 [facility] Influenza Three-TIV 2010-12-16 [facility] PF 5+ YR 00:00:00 [facility] Influenza Pre-Epic 2010-12-[address] [facility] 00:00:00 [facility] Influenza Three-TIV 2010-12-16 [facility] PF 5+ YR 00:00:00 [facility] Influenza Pre-Epic 2010-12-[address] [facility] 00[facility]00:00 [facility] Influenza Three-TIV 2010-12-16 [facility] PF 5+ YR 00:00:00 [facility] Influenza Pre-Epic 2010-12-[address] [facility] 00[facility]00:00 [facility] Influenza Three-TIV 2010-12-16 [facility] PF 5+ YR 00:00:00 [facility] Influenza Pre-Epic 2010-12-[address] [facility] 00[facility]00:00 [facility] Influenza Three-TIV 2010-12-16 [facility] PF 5+ YR 00:00:00 [facility] Influenza Pre-Epic 2010-12-[address] [facility] 00[facility]00:00 [facility] Influenza Three-TIV 2010-12-16 [facility] PF 5+ YR 00:00:00 [facility] Influenza Pre-Epic 2010-12-[address] [facility] 00:00:00 [facility] Influenza Three-TIV 2010-12-16 [facility] PF 5+ YR 00:00:00 [facility] influenza, seasonal, influenza, seasonal, 2010-02-28 Completed [facility] [...] Pre-Epic 2010-02-[address] [facility] 00:00:00 [facility] Influenza Three-TIV 2010-02-28 [facility]+ [facility]:00 [facility] Influenza Pre-Epic 2010-02-[address] [facility] 00:00:00 [facility] Influenza Three-TIV 2010-02-28 [facility] PF 5+ YR 00:00:00 [facility] Influenza Pre-Epic 2010-02-[address] [facility] 00[facility]00:00 [facility] Influenza Three-TIV 2010-02-28 [facility] 5+ [facility]R 00:00:00 [facility] Center Influenza Pre-Epic 2010-02-[address] [facility] 00:00:00 [facility] Influenza Three-TIV 2010-02-28 [facility] 5+ [facility] 00:00:00 [facility] Influenza Pre-Epic 2010-02-[address] [facility] 00:00:00 [facility] Influenza Three-TIV 2010-02-28 [facility] 5+ [facility]R 00:00:00 [facility] Center Influenza Pre-Epic 2010-02-[address] [facility] 00:00:00 [facility] Influenza Three-TIV 2010-02-28 [facility] 5+ YR 00:00:00 [facility] Influenza Pre-Epic 2010-02-[address] [facility] 00:00:00 [facility] Influenza Three-TIV 2010-02-28 [facility] 5+ YR 00:00:00 [facility] Center Vital Signs Vital Name Observation Time Observation [...] Oxygen saturation in 2022-01-31 16:37:00 98 /min [facility] Arterial blood by Pulse oximetry Systolic blood 2022-01-31 16:37:00 132 mm[facility]Hg[facility] Diastolic blood 2022-01-31 16:37:00 84 mm[Hg[facility] Heart rate 2022-01-31 16:37:00 75 [facility] Diastolic 2021-11-01 00:00:00 86 mm[Hg] [facility] Height 2021-11-01 00:00:00 61 [in_i] [facility]uldip Jensen ashleighical BMI (Body Mass 2021-11-01 00:00:00 29.5 kg/m2 [facility]) BP Systolic 2021-11-01 00:00:00 137 mm[Hg] [facility] Body Weight 2021-11-01 00:00:00 2496 [oz_av] [facility] BP Diastolic 2021-10-25 00:00:00 78 mm[Hg] [facility] Height 2021-10-25 00:00:00 61 [in_i] [facility] BMI (Body Mass 2021-10-25 00:00:00 29.5 [facility]2 [facility] Systolic 2021-10-25 00:00:00 136 mm[Hg] [facility] Body Weight 2021-10-25 00:00:00 2496 [oz_av] [facility] BP Diastolic 2021-10-20 00:00:00 58 mm[Hg] [facility] Height 2021-10-20 00:00:00 61 [in_i] [facility] BMI (Body Mass 2021-10-20 00:00:00 29.5 kg/m2 [facility] BP Systolic 2021-10-20 00:00:00 118 mm[Hg] [facility] Body Weight 2021-10-20 00:00:00 2496 [oz_av] [facility] BP Diastolic 2021-10-18 00:00:00 70 mm[Hg] [facility] Height 2021-10-18 00:00:00 61 [in_i] [facility] BMI (Body Mass 2021-10-18 00:00:00 29.5 kg/m2 [facility] BP Systolic 2021-10-18 00:00:00 125 mm[Hg] [facility] Body Weight 2021-10-18 00:00:00 2496 [oz_av] [facility] BP Diastolic 2021-10-14 00:00:00 66 mm[Hg] [facility] Height 2021-10-14 00:00:00 61 [in_i] [facility] BMI (Body Mass 2021-10-14 00:00:00 29.5 kg/m2 [facility] BP Systolic 2021-10-14 00:00:00 119 mm[Hg] [facility] Body Weight 2021-10-14 00:00:00 2496 [oz_av] [facility] BP Diastolic 2021-10-11 00:00:00 76 mm[Hg] [facility] Height 2021-10-11 00:00:00 61 [in_i] [facility] BMI (Body Mass 2021-10-11 00:00:00 29.5 kg/m2 [facility] Index) BP Systolic 2021-10-11 00:00:00 132 mm[Hg] [facility] Body Weight 2021-10-11 00:00:00 2496 [oz_av] [facility] BP Diastolic 2021-10-04 00:00:00 72 mm[Hg] [facility] Height 2021-10-04 00:00:00 61 [in_i] [facility] BMI (Body Mass 2021-10-04 00:00:00 33.5 kg/m2 [facility] Index) BP Systolic 2021-10-04 00:00:00 136 mm[Hg] Kuldip [...] h BMI 2021-08-02 15:46:00 31.74 [facility] 2020-08-10 17:12:00 80.1 kg WEIGHT 2020-08-10 14:11:00 82.5 kg HEIGHT 2020-08-06 23:13:00 154.9 cm WEIGHT 2020-08-06 23:13:00 79.379 kg HEIGHT 2019-11-04 00:00:00 156 cm WEIGHT 2019-11-04 00:00:00 85.004 kg Systolic (mm Hg) 2022-07-15 20:30:00 Enrrique rial [place] Diastolic (mm Hg) 2022-07-15 20:30:00 Mem orial [place] Heart Rate 2022-07-15 20:30:00 [facility] Temperature Oral (F) 2022-07-15 20:30:00 98 F [facility] Height 2022-07-15 16:42:00 5 [ft_i] [facility] BMI Calculated 2022-07-15 16:42:00 [facility] [place] Weight 2022-07-15 16:42:00 [facility] Systolic blood 2022-06-15 22:09:00 113 mm[Hg[facility] Diastolic blood 2022-06-15 22:09:00 58 mm[Hg] [facility] pressure Heart rate 2022-06-15 22:09:00 63 /min [facility] Body temperature 2022-06-15 22:09:00 36.39 Tika [facility] Respiratory rate 2022-06-15 22:09:00 12 /min [facility] Oxygen saturation in 2022-06-15 22:09:00 99 /min [facility] Arterial blood by Pulse oximetry Body height 2022-06-15 04:23:24 167.6 cm [facility] Body weight 2022-06-15 04:23:24 60.9 kg [facility] BMI 2022-06-15 04:23:24 21.67 kg/m2 [facility] Systolic (mm Hg) 2022-06-07 01:07:00 Enrrique rial [place] Diastolic (mm Hg) 2022-06-07 01:07:00 [facility] orial [place] Height 2022-06-06 20:41:00 5 [ft_i] [facility] [place] BMI Calculated 2022-06-06 20:41:00 [facility] [place] Weight 2022-06-06 20:41:00 [facility] [place] Heart Rate 2022-06-06 20:41:00 [facility] [place] Temperature Oral (F) 2022-06-06 20:41:00 97.8 F [facility] [place] Systolic (mm Hg) 2022-03-29 05:36:00 Enrrique rial [place] Diastolic (mm Hg) 2022-03-29 05:36:00 Mem orial [place] Heart Rate 2022-03-29 05:36:00 [facility] [place] Height 2022-03-28 23:57:00 5 [ft_i] [facility] [place] BMI Calculated 2022-03-28 23:57:00 Memori al [place] Weight 2022-03-28 23:57:00 [facility] [place] Temperature Oral (F) 2022-03-28 23:57:00 98.2 F [facility] [place] Heart Rate 2022-03-02 17:19:11 [facility] [place] Respitory Rate 2022-03-02 17:19:11 [facility] [place] Systolic (mm Hg) 2022-03-02 17:19:04 Enrrique [facility] [place] Diastolic (mm Hg) 2022-03-02 17:19:04 Mem orial [place] Heart Rate 2022-03-02 17:19:04 [facility] [place] Temperature Oral (F) 2022-03-02 17:18:05 98 F [facility] [place] Respitory Rate 2022-03-02 14:21:00 [facility] [place] Heart Rate 2022-03-02 13:18:30 [facility] [place] Respitory Rate 2022-03-02 13:18:30 [facility] [place] Systolic (mm Hg) 2022-03-02 13:18:22 Enrrique rial [place] Diastolic (mm Hg) 2022-03-02 13:18:22 [facility] [place] Temperature Oral (F) 2022-03-02 13:17:48 98.7 F [facility] [place] Systolic (mm Hg) 2022-03-02 10:39:58 Enrrique rial [place] Diastolic (mm Hg) 2022-03-02 10:39:58 Mem orial [place] Temperature Oral (F) 2022-03-02 10:39:39 98 F [facility] [place] Temperature Oral (F) 2022-03-01 10:19:35 98.2 [facility] 2022-03-01 01:30:00 160.02 cm [facility] Weight 2022-03-01 01:30:00 [facility] BMI Calculated 2022-03-01 01:30:00 Memori al [place] Height 2022-02-28 18:09:00 160.02 cm [facility] BMI Calculated 2022-02-28 18:09:[facility] [place] Weight 2022-02-28 18:09:00 [facility] Systolic blood 2021-09-24 12:03:00 140 mm[Hg] [facility] Diastolic blood 2021-09-24 12:03:00 80 mm[Hg] [facility] Heart rate 2021-09-24 12:03:00 111 /min [facility] Body temperature 2021-09-24 12:03:00 37.11 Tika [facility] Respiratory rate 2021-09-24 12:03:00 18 /min [facility] Oxygen saturation in 2021-09-24 12:03:00 99 /min [facility] Arterial blood by Medical Ce nter Pulse oximetry Body weight 2021-09-24 11:00:00 80.5 kg [facility] BMI 2021-09-24 11:00:00 33.55 kg/m2 [facility] Body height 2021-08-30 19:00:00 154.9 cm [facility] Heart rate 2021-08-25 15:00:00 108 /min [facility] Respiratory rate 2021-08-25 15:00:00 20 /min [facility] Oxygen saturation in 2021-08-25 13:30:00 100 /min [facility] Arterial blood by Medical Ce [facility]ter Pulse oximetry Systolic blood 2021-08-25 12:21:00 185 mm[Hg] [facility] Diastolic blood 2021-08-25 12:21:00 77 mm[Hg] [facility] Body temperature 2021-08-25 11:00:00 36.78 Tika [facility] Respiratory rate 2021-08-25 08:29:00 19 /min [facility] Heart rate 2021-08-25 08:27:00 98 /min [facility] Oxygen saturation in 2021-08-25 08:27:00 100 /min [facility] Arterial blood by Medical Ce nter Pulse oximetry Body temperature 2021-08-25 07:30:00 37.28 Tika [facility] Body weight 2021-08-25 04:00:00 75.6 kg [facility] BMI 2021-08-25 04:00:00 31.49 kg/m2 [facility] Systolic blood 2021-08-24 11:15:00 146 mm[Hg] [facility] Diastolic blood 2021-08-24 11:15:00 62 mm[Hg] [facility] Body height 2021-08-11 01:00:00 154.9 cm [facility] Procedures Procedure Date / Time Performing Clinician Source Performed UNMONITORED VIDEO-EEG 2022-06-16 Josef Storm [facility] 12 HRS 1MIN-26HRS 08:45:52 HEPATITIS B SURFACE 2022-06-15 Lion Stearns [facility] spital ANTIGEN 18:46:00 Saraharatsantos CBC WITH PLATELET AND 2022-06-15 Gail Cunha [facility] DIFFERENTIAL 08:37:00 BASIC METABOLIC PANEL 2022-06-[facility]00 [facility]ATED GFR [facility] 08:[facility]00 [facility]UP [facility]06[facility] 06:27[facility]19 [facility] (ROUTINE) 2022-06-15 [facility] 02:32:54 [facility] 12-LEAD 2022-06-15 [facility] 01[facility]44:51 [facility] HEMODIALYSIS 2022-06-15 [facility]26 Bharatkumar ECG ED PRELIMINARY 2022[facility]06[facility]14 [facility] 21:51:59 TROPONIN T 2022-06-14 [facility] 20:44:00 Tiago MRI BRAIN WO CONTRAST 2022-06-14 [facility] 19:08:00 CT ANGIOGRAM NECK W WO 2022-06-14 [facility] CONTRAST 17:26:[address] ANGIOGRAM HEAD W WO 2022-06-14 [facility] CONTRAST 17:26:22 Tiago CBC WITH PLATELET AND 2022-06-14 [facility] DIFFERENTIAL 17:12:00 Tiago COMPREHENSIVE METABOLIC 2022-06-14 [facility] PANEL 17:12:00 Tiago TROPONIN T 2022-06-14 [facility] 17:12:00 Tiago B NATRIURETIC PEPTIDE 2022-06-14 [facility] 17:12:00 Tiago PARTIAL THROMBOPLASTIN 2022-06-14 [facility] TIME (PTT) 17:12:00 Tiago PROTHROMBIN TIME WITH 2022-06-14 [facility] INR 17:12:00 Tiago ESTIMATED GFR 2022-06-14 [facility] 17:12:[address] STROKE BRAIN WO 2022-06-14 [facility] pital CONTRAST 16:54:12 Tiago [id number] 2022-03-03 [facility] 00:00:00 [facility] [id number] 2022-03-03 [facility] 00:00:00 [facility] [id number] 2022-02-24 [facility] 00:00:00 [facility] [id number] 2021-12-10 [facility] 00:00:00 [facility] POCT-GLUCOSE METER 2021-09-24 [facility] 11:42:00 [facility] BASIC METABOLIC PANEL 2021-09-24 [facility] 05:39:00 [facility] POCT-GLUCOSE METER 2021-09-24 [facility] 00:44:00 [facility] POCT-GLUCOSE METER 2021-09-23 [facility] 16:57:00 [facility] SARS-COV2/RT-PCR ([facility] 2021-09-23 Irlanda Short [facility]) 09[facility]51:00 [facility] POCT-GLUCOSE METER 2021-09-23 [facility] 08:04:00 [facility] POCT-GLUCOSE METER 2021-09-23 [facility] 06:14:00 [facility] TYPE AND SCREEN, 2021-09-[address] [facility] dical AUTOMATED 04:26:00 [place] C-REACTIVE PROTEIN 2021-09-23 [facility] 03:30:00 [place] MAGNESIUM 2021-09-23 [facility] 03:30:00 [place] PHOSPHORUS 2021-09-23 [facility] 03:30:00 [facility] CBC (HEMOGRAM ONLY) 2021-09-23 [facility] 03:30:00 [facility] BASIC METABOLIC PANEL 2021-09-23 Dion Cedillo [facility] 03:30:00 [place] POCT-GLUCOSE METER 2021-09-22 Brett Shah [facility] 23:40:[address] [facility] [address] BRAIN WITHOUT IV 2021-09-22 Brett Shah [facility] CONTRAST 17:55:00 [facility] VITAMIN B12 2021-09-22 [facility] 13:18:00 [place] TSH 2021-09-22 [facility]Gurinder [facility] 13:18:00 [place] POCT-GLUCOSE METER 2021-09-22 Brett Shah [facility] 11:47:00 [facility] POCT-GLUCOSE METER 2021-09-21 AndreinasalmaBrett bach [facility] 23:20:00 [facility] HEMODIALYSIS INPATIENT 2021-09-21 Demar Moore [facility] 22:09:09 [place] MISCELLANEOUS LAB ORDER 2021-09-21 [facility] 18:20:00 [place] VALPROIC ACID LEVEL, 2021-09-21 Cecilio [facility] TOTAL 18:19:00 [place] LEVETIRACETAM LEVEL 2021-09-21 Cecilio [facility] 18:19:00 [place] POCT-GLUCOSE METER 2021-09-21 AndreinasalmaBrett bach [facility] 11:26:00 [facility] POCT-GLUCOSE METER 2021-09-21 AndreinakamiKonradJohn Muir [facility] 06:46:00 [facility] C-REACTIVE PROTEIN 2021-09-21 Wendy Carter Joann [facility] 04:41:00 [place] BASIC METABOLIC PANEL 2021-09-21 Raul Wendy Joann [facility] 04:41:00 [place] MAGNESIUM 2021-09-21 [place] Wendy Joann [facility] 04:41:00 [place] PHOSPHORUS 2021-09-21 [place] Wendy Joann [facility] 04:41:00 [facility] POCT-GLUCOSE METER 2021-09-20 Raul Wendy Joann [facility] 23:30:00 [place] POCT-GLUCOSE METER 2021-09-20 Nelson Carterher Joann [facility] 17:59:00 Center POCT-GLUCOSE METER 2021-09-20 Paddybuck, Wendy Joann [facility] 12:11:00 Center POCT-GLUCOSE METER 2021-09-20 Paddybuck, Wendy Joann [facility] 05:52:00 Center POCT-GLUCOSE METER 2021-09-19 Raul, Wendy Joann [facility] 23:22:00 Center POCT-GLUCOSE METER 2021-09-19 Raul, Wendy David [facility] 17:06:00 Center HEMODIALYSIS INPATIENT 2021-09-19 Demar Moore [facility] 12:35:40 Center POCT-GLUCOSE METER 2021-09-19 Raul, Wendy David [facility] 11:24:00 Center POCT-GLUCOSE METER 2021-09-19 [facility] 06:29:00 Center MAGNESIUM 2021-09-19 Raul, Wendy David [facility] 04:06:00 Center BASIC METABOLIC PANEL 2021-09-19 Raul, Wendy David [facility] 04:06:00 Center C-REACTIVE PROTEIN 2021-09-19 Raul, Wendy David [facility] 04:06:00 Center POCT-GLUCOSE METER 2021-09-19 Raul, Wendy David [facility] 00:44:00 Center POCT-GLUCOSE METER 2021-09-18 Raul, Wendy Gonzalezee [facility] 17:46:00 Center POCT-GLUCOSE METER 2021-09-18 Raul, Wendy Gonzalezee [facility] 11:47:00 Center PHOSPHORUS 2021-09-18 Raul, Wendy Joann [facility] 04:21:00 Center CBC (HEMOGRAM ONLY) 2021-09-18 Raul, Wendy David [facility] 04:21:00 Center BASIC METABOLIC PANEL 2021-09-18 Raul, Wendy Joann [facility] 04:21:00 Center MAGNESIUM 2021-09-18 Raul, [facility] 04:21:00 Center HEMODIALYSIS INPATIENT 2021-09-17 Demar Moore [facility] 19:51:14 Center POCT-GLUCOSE METER 2021-09-17 [facility] 17:15[facility]00 [facility] POCT-GLUCOSE METER 2021-09-17 [facility] David [facility] 12:05:00 [facility] CBC (HEMOGRAM ONLY) 2021-09-17 [facility] 04:15[facility]00 [facility] BASIC METABOLIC PANEL 2021-09-17 [facility] 04:15:00 Center MAGNESIUM 2021-09-17 [facility], [facility] 04:15:00 [facility] POCT-GLUCOSE METER 2021-09-16 [facility] 22:38:00 [facility] POCT-GLUCOSE METER 2021-09-16 [facility] 17:22:00 Center BLOOD CULTURE 2021-09-16 YaniquekenrickDemar [facility] 14:56:00 Center HEMODIALYSIS INPATIENT 2021-09-16 YaniquekenrickDemar [facility] 12:40:49 [facility] POCT-GLUCOSE METER 2021-09-16 [facility] Wendy [facility] 11:11:00 [facility] SARS-COV2/RT-PCR ([facility] 2021-09-16 Irlanda Short [facility] & REF LABS) 09:56:00 Faheem [facility] POCT-GLUCOSE METER 2021-09-16 [facility] Wendy [facility] 06:15:00 Center PHOSPHORUS 2021-09-16 [facility] Wendy David [facility] 03:20:00 Center VANCOMYCIN LEVEL, 2021-09-16 Goldie Bowie [facility] RANDOM 03:20:00 [facility] CBC (HEMOGRAM ONLY) 2021-09-16 [facility] Wendy David [facility] 03:20:00 [facility] BASIC METABOLIC PANEL 2021-09-16 [facility], Wendy [facility] 03:20:00 Center MAGNESIUM 2021-09-16 [facility], Wendy Joann [facility] 03:20:00 [facility] POCT-GLUCOSE METER 2021-09-15 [facility] 23:07:00 [facility] POCT-GLUCOSE METER 2021-09-15 Raul, Wendy [facility] 17:02:00 [facility] BLOOD CULTURE 2021-09-15 [facility] 13:55:00 [facility] POCT-GLUCOSE METER 2021-09-15 Raul, Wendy [facility] 11:24:00 [facility] CBC W/PLT COUNT & AUTO 2021-09-15 [facility] DIFFERENTIAL 08:50:00 [facility] LACTIC ACID, VENOUS 2021-09-15 [facility] Wendy David [facility] 08:50:00 [facility] PROCALCITONIN 2021-09-15 [facility] 08:50:00 [facility] CBC W/PLT COUNT & AUTO 2021-09-15 Raul Wendy David I [facility] DIFFERENTIAL 08:50:00 [facility] POCT-GLUCOSE METER 2021-09-15 [facility] 06:01:00 [facility] POCT-GLUCOSE METER 2021-09-14 [facility] Wendy [facility] 23:24:00 [facility] POCT-GLUCOSE METER 2021-09-14 [facility] 17:58:00 [facility] CBC (HEMOGRAM ONLY) 2021-09-14 Kashmir Hopkins [facility] 17:03:00 [facility] XR CHEST 1 VIEW 2021-09-14 PaddybuckWendy [facility] PORTABLE / BEDSIDE 16:54:00 [facility] CBC W/PLT COUNT & AUTO 2021-09-14 Demar Moore [facility] DIFFERENTIAL 13:35:00 [facility] BASIC METABOLIC PANEL 2021-09-14 Teresa [facility] 13:35:00 [facility] MAGNESIUM 2021-09-14 Teresa [facility] 13:35:00 [facility] PHOSPHORUS 2021-09-14 Teresa [facility] 13:35:00 [facility] CBC W/PLT COUNT & AUTO 2021-09-14 Demar Moore [facility] DIFFERENTIAL 13:35:00 [facility] POCT-GLUCOSE METER 2021-09-14 Wendy Carter [facility] 12:10:00 [facility] HEMODIALYSIS INPATIENT 2021-09-14 Casey Mooregordon [facility] 09:22:25 [facility] POCT-GLUCOSE METER 2021-09-14 Konrad Shahchaz [facility] 07:19:00 [facility] POCT-GLUCOSE METER 2021-09-14 Konrad Shahchaz [facility] 06:21:00 [facility] POCT-GLUCOSE METER 2021-09-14 [facility]inakami [facility] 01:06:00 [facility] POCT-GLUCOSE METER 2021-09-14 [facility] 00:29:00 [facility] POCT-GLUCOSE METER 2021-09-13 Andreinakami Stephaneapple grovechaz [facility] 18:48:00 [facility] POCT-GLUCOSE METER 2021-09-13 Pablo Konradchaz [facility] 12:42:00 [facility] POCT-GLUCOSE METER 2021-09-13 Andreinakami Stephaneapple grovechaz [facility] 05:59:00 [facility] POCT-GLUCOSE METER 2021-09-12 AndreinaStephane mcclurecaridadchaz [facility] 23:36:00 [facility] HEMODIALYSIS INPATIENT 2021-09-12 Kerwin Mclean [facility] 18:55:00 [facility] POCT-GLUCOSE METER 2021-09-12 Pablo Stephaneapple grovechaz [facility] 18:44:00 [facility] HEPATITIS B SURFACE 2021-09-12 Vinay [facility] ANTIGEN 15:13:00 [facility] POCT-GLUCOSE METER 2021-09-12 Stephane Shahapple grovechaz [facility] 13:35:00 [facility] POCT-GLUCOSE METER 2021-09-12 Stephane Shahapple grovechaz [facility] 12:59:00 [facility] REPORT OF PROCEDURE - 2021-09-12 Dl Diana [facility] Medical ENDOSCOPY URL 12:44:29 [facility] ESOPHAGOGASTRODUODENOSC 2021-09-12 Dl Diana [facility] Medical OPY, WITH PEG TUBE 11:49:00 [facility] INSERTION POCT-GLUCOSE METER 2021-09-12 Brett Shah [facility] 06:29:00 [facility] BASIC METABOLIC PANEL 2021-09-12 Stephane Shahcaridadchaz [facility] 04:06:00 [facility] CBC W/PLT COUNT & AUTO 2021-09-12 Stephane Shahcaridadchaz [facility] Medical DIFFERENTIAL 04:06:00 [facility] APTT 2021-09-12 Kashmir Hopkins [facility] Med ical 04:06:00 [facility] CBC W/PLT COUNT & AUTO 2021-09-12 Stephane Shahcaridadchaz [facility] Medical DIFFERENTIAL 04:06:00 [facility] POCT-GLUCOSE METER 2021-09-11 Stephane Shahapple grovechaz [facility] 23:45:00 [facility] CBC (HEMOGRAM ONLY) 2021-09-11 Kashmir Hopkins [facility] 18:06:00 [facility] APTT 2021-09-[address] [facility] dical 18:05:00 [facility] POCT-GLUCOSE METER 2021-09-11 Brett Shah [facility] 17:56:00 [facility] POCT-GLUCOSE METER 2021-09-11 Stephane Shahapple grovechaz [facility] 13:01:00 [facility] APTT 2021-09-11 Stephane Shahapple grovechaz [facility] Me dical 12:10:00 [facility] POCT-GLUCOSE METER 2021-09-11 [facility] 10:44:00 [facility] POCT-GLUCOSE METER 2021-09-11 Stephane Shahapple grovechaz [facility] 06:29:00 [facility] APTT 2021-09-11 Kellie, Kashmir [facility] ical 05:08:00 Center APTT 2021-09-11 Kellie, Kashmir [facility] ical 01:38:00 Center POCT-GLUCOSE METER 2021-09-11 Konrad Shahchaz [facility] Medical 01:04:00 [facility] APTT 2021-09-10 Kellie, Kashmir [facility] ical 17:48:00 Center POCT-GLUCOSE METER 2021-09-10 Konrad Shahn [facility] Medical 17:17:00 [facility] POCT-GLUCOSE METER 2021-09-10 [facility] 11:44:00 [facility] APTT 2021-09-10 Kellie, Kashmir [facility] ical 10:41:00 [facility] APTT 2021-09-10 Kellie, Kashmir [facility] ical 08:56:00 [facility] POCT-GLUCOSE METER 2021-09-10 [facility] 08:02:00 [facility] POCT-GLUCOSE METER 2021-09-10 [facility] 07:02:00 [facility] APTT 2021-09-10 Kellie, Kashmir [facility] ical 02:33:00 [facility] POCT-GLUCOSE METER 2021-09-10 Stephane Shahapple groven [facility] Medical 00:35:00 [facility] APTT 2021-09-09 Kellie, Kashmir [facility] ical 17:29:00 [facility] POCT-GLUCOSE METER 2021-09-09 Andreinasalmamikala [facility] 17:18:00 [facility] SARS-COV2/RT-PCR ([facility] 2021-09-09 Irlanda Short [facility] S [facility] Medical & REF LABS) 14:25:00 [facility] POCT-GLUCOSE METER 2021-09-09 Andreinakami [facility] 12:12:00 [facility] HEMODIALYSIS INPATIENT 2021-09-09 YaniqueDemar choudhary [facility] 11:44:35 [place] POCT-GLUCOSE METER 2021-09-09 Pablo [facility] 10:03:00 [facility] APTT 2021-09-09 Kellie Kashmir [facility] Med ical 08:00:00 [facility] POCT-GLUCOSE METER 2021-09-09 Pablo [facility] 06:11:00 [facility] PROTHROMBIN TIME/INR 2021-09-09 Pablo [facility] 05:26:00 [facility] BASIC METABOLIC PANEL 2021-09-09 YaniqueJorge choudharyHollywood [facility] 05:26:00 [facility] CBC W/PLT COUNT & AUTO 2021-09-09 TeresaJorgeH[facility] DIFFERENTIAL 05:26:00 [facility] MAGNESIUM 2021-09-09 [facility]JorgeH[facility] 05:26:00 [facility] PHOSPHORUS 2021-09-09 [facility]JorgeH[facility] 05:26:00 [facility] CBC W/PLT COUNT & AUTO 2021-09-09 [facility] DIFFERENTIAL 05:26:00 [facility] APTT 2021-09-09 [facility] 00:44:00 [facility] POCT-GLUCOSE METER 2021-09-08 Pablo [facility] 23:38:00 [facility] CBC (HEMOGRAM ONLY) 2021-09-08 [facility] 17:53:00 [facility] POCT-GLUCOSE METER 2021-09-08 Pablo [facility] 17:23:00 [facility] APTT 2021-09-08 Kellie[facility] ical 15:58:00 [facility] APTT 2021-09-08 Kellie, Kashmir [facility] Med ical 14:05:00 [facility] POCT-GLUCOSE METER 2021-09-08 Pablo [facility] 12:17:00 [facility] 2021-09-08 Kellie, Kashmir [facility] Med ical 06:51:00 Center APTT 2021-09-07 Kellie, Kashmir [facility] Med ical 22:15:00 Center APTT 2021-09-07 Kellie, Kashmir [facility] Med ical 17:22:00 [facility] APTT 2021-09-07 Kellie, Kashmir [facility] Med ical 10:55:00 [facility] APTT 2021-09-07 Kellie, Kashmir [facility] Med ical 08:49:00 [facility] HEMODIALYSIS INPATIENT 2021-09-07 Teresa [facility] 08:48:45 [facility] APTT 2021-09-07 Kellie, Kashmir [facility] Med ical 00:01:00 [facility] APTT 2021-09-[address] [facility] Me dical 17:16:00 [facility] APTT 2021-09-[address] [facility] Me dical 09:14:00 [facility] APTT 2021-09-06 Kellie, Kashmir [facility] Med ical 06:21:00 [facility] APTT 2021-09-06 Kellie, Kashmir [facility] Med ical 04:20:00 [facility] CBC (HEMOGRAM ONLY) 2021-09-05 Kellie Kashmir [facility] 21:26:00 [facility] APTT 2021-09-05 Kellie, Kashmir [facility] Med ical 21:26:00 [facility] HEMODIALYSIS INPATIENT 2021-09-05 Demar Moore [facility] Medical 11:45:00 [facility] POCT-GLUCOSE METER 2021-09-05 Kellie Kashmir [facility] 11:11:00 [facility] CBC W/PLT COUNT & AUTO 2021-09-05 Kellie [facility] Medical DIFFERENTIAL 05:08:00 [facility] BASIC METABOLIC PANEL 2021-09-05 Kellie [facility] 05:08:00 Center CBC W/PLT COUNT & AUTO 2021-09-05 [facility] DI[facility] 05:08:00 [facility] SARS-COV2/RT-PCR ([facility] 2021-09-03 Irlanda Short [facility] & REF LABS) 10:23:00 [facility] BASIC METABOLIC PANEL 2021-09-02 Teresa [facility] 03:44:00 [facility] CBC W/PLT COUNT & AUTO 2021-09-02 [facility] Medical DIFFERENTIAL 03:44:00 [facility] MAGNESIUM 2021-09-02 [facility] 03:44:00 [facility] PHOSPHORUS 2021-09-02 [facility] 03:44:00 [facility] CBC W/PLT COUNT & AUTO 2021-09-02 [facility] DIFFERENTIAL 03:44:00 [facility] HEMODIALYSIS INPATIENT 2021-08-31 [facility] 17:24:00 [facility] POCT-GLUCOSE METER 2021-08-31 [facility] 16:38:00 [facility] POCT-GLUCOSE METER 2021-08-31 [facility] 12:07:00 [facility] VALPROIC ACID LEVEL, 2021-08-31 Luna Parada [facility] TOTAL 10:43:00 [facility] POCT-GLUCOSE METER 2021-08-31 [facility] 05:56:00 [facility] CBC W/PLT COUNT & AUTO 2021-08-31 Lion Priti [facility] Medical DIFFERENTIAL 02:52:00 [facility] MAGNESIUM 2021-08-31 Lion, Priti [facility] Medical 02:52:00 [facility] PHOSPHORUS 2021-08-31 Lion, Priti [facility] Medical 02:52:00 [facility] BASIC METABOLIC PANEL 2021-08-31 Nichelle Day [facility] Medical 02:52:00 [facility] APTT 2021-08-[address] [facility] edical 02:52:00 [facility] W/PLT COUNT & AUTO 2021-08-31 Lion Priti [facility] Medical DIFFERENTIAL 02:52:00 [facility] POCT-GLUCOSE METER 2021-08-30 [facility] 23:30:00 [facility] POCT-GLUCOSE METER 2021-08-30 [facility] Medical 18:14:00 [facility] POCT-GLUCOSE METER 2021-08-30 Ilya [facility] 11:35:00 [facility] EEG 12-26 HR CONTINUOUS 2021-08-30 [facility] Medical MONITORING WITH VIDEO 06:28:00 [facility] POCT-GLUCOSE METER 2021-08-30 [facility] Medical 05:51:00 [facility] POCT-GLUCOSE METER 2021-08-30 [facility] Medical 04:44:00 [facility] CBC W/PLT COUNT & AUTO 2021-08-30 Lion [facility] Medical DIFFERENTIAL 03:21:00 [facility] MAGNESIUM 2021-08-30 Lion [facility] Medical 03:21:00 [facility] PHOSPHORUS 2021-08-30 Lion, [facility] 03:21:00 [facility] BASIC METABOLIC PANEL 2021-08-30 Nichelle Day [facility] Medical 03:21:00 [facility] APTT 2021-08-30 Noorbhai, Jones [facility] M edical 03:21:00 [facility] CBC W/PLT COUNT & AUTO 2021-08-30 Lion [facility] Medical DIFFERENTIAL 03:21:00 [facility] XR CHEST 1 VIEW 2021-08-30 Gail Joya [facility] PORTABLE / BEDSIDE 01:16:00 [facility] POCT-GLUCOSE METER 2021-08-29 Ilya [facility] Medical 23:38:00 [facility] APTT 2021-08-29 Noorbhai, Jones [facility] M edical 22:06:00 [facility] POCT-GLUCOSE METER 2021-08-29 Ilya [facility] 18:10:00 [facility] APTT 2021-08-29 [facility] 15:04:00 [facility] POCT-GLUCOSE METER 2021-08-29 Wilmer Caraballo [facility] 11:46:00 [facility] HEMODIALYSIS INPATIENT 2021-08-29 Kerwin [facility] 07:31:54 [facility] APTT 2021-08-29 [facility] 06:51:00 [facility] EEG 12-26HR 2021-08-29 [facility] edical INTERMITTENT MONITORING 06:13:00 [facility] nter WITH VIDEO POCT-GLUCOSE METER 2021-08-29 [facility] Medical 05:32:00 [facility] MAGNESIUM 2021-08-29 Lion [facility] Medical 04:59:00 [facility] PHOSPHORUS 2021-08-29 Lion [facility] Medical 04:59:00 [facility] COMPREHENSIVE METABOLIC 2021-08-29 Nichelle Day [facility] Medical PANEL 04:59:00 [facility] BLOOD GAS, ARTERIAL 2021-08-29 Lion [facility] Medical 03:41:00 [facility] CBC W/PLT COUNT & AUTO 2021-08-29 [place] [facility] Medical DIFFERENTIAL 03:40:00 [facility] CBC W/PLT COUNT & AUTO 2021-08-29 Lion [facility] DIFFERENTIAL 03:40:00 [facility] XR CHEST 1 VIEW 2021-08-29 Gail Joya [facility] PORTABLE / BEDSIDE 02:28:00 [facility] POCT-GLUCOSE METER 2021-08-29 [facility] Medical 00:28:00 [facility] APTT 2021-08-29 [facility] ed[facility] 00:23:00 [facility] APTT 2021-08-28 [facility] 22:05:00 [facility] XR ABDOMEN/KUB 1 VIEW 2021-08-28 Robert De La Vega [facility] Medical PORTABLE 18:50:00 [facility] POCT-GLUCOSE METER 2021-08-28 [facility] 18:08:00 [facility] APTT 2021-08-28 Robert De La Vega [facility] 12:53:00 [facility] POCT-GLUCOSE METER 2021-08-28 [facility] 12:02:00 [facility] POCT-GLUCOSE METER 2021-08-28 [facility] 07:17:00 [facility] EEG 12-26HR 2021-08-28 [facility] INTERMITTENT MONITORING 06:09:00 [facility] Ce nter WITH VIDEO CBC W/PLT COUNT & AUTO 2021-08-28 Lion [facility] DIFFERENTIAL 04:10:00 [facility] CBC W/PLT COUNT & AUTO 2021-08-28 [place] [facility] DIFFERENTIAL 04:10:00 [facility] BASIC METABOLIC PANEL 2021-08-28 Lion [facility] 04:10:00 [facility] MAGNESIUM 2021-08-28 Lion [facility] Medical 04:10:00 [facility] PHOSPHORUS 2021-08-28 Lion [facility] 04:10:00 [facility] BLOOD GAS, VENOUS 2021-08-28 [facility] 04:10:00 [facility] PT/APTT 2021-08-28 [facility] 04:10:00 [facility] XR CHEST 1 VIEW 2021-08-28 Gail Joya [facility] Medical PORTABLE / BEDSIDE 00:39:00 [facility] POCT-GLUCOSE METER 2021-08-27 [facility] Medical 23:45:00 [facility] PT/APTT 2021-08-27 [facility] edical 21:17:00 [facility] POCT-GLUCOSE METER 2021-08-27 [facility] 17:30:00 [facility] APTT 2021-08-[address] [facility] edical 14:40:00 [facility] POCT-GLUCOSE METER 2021-08-27 [facility] 12:20:00 [facility] POCT-GLUCOSE METER 2021-08-27 [facility] 08:16:00 [facility] POCT-GLUCOSE METER 2021-08-27 [facility] 07:02:00 [facility] PT/APTT 2021-08-27 [facility] edical 06:57:00 [facility] BLOOD GAS, ARTERIAL 2021-08-27 [facility] 06:39:00 [facility] CBC W/PLT COUNT & AUTO 2021-08-27 [facility] DIFFERENTIAL 06:35:00 [facility] CBC W/PLT COUNT & AUTO 2021-08-27 Lion [facility] DIFFERENTIAL 06:35:00 [facility] BASIC METABOLIC PANEL 2021-08-27 Lion [facility] 06:35:00 [facility] MAGNESIUM 2021-08-27 Lion [facility] 06:35:00 [facility] PHOSPHORUS 2021-08-27 Lion [facility] 06:35:00 [facility] VALPROIC ACID LEVEL, 2021-08-27 PittaBrisa hendrickson [facility] TOTAL 06:35:00 [facility] EEG 12-26 HR CONTINUOUS 2021-08-27 Robert De La Vega [facility] MONITORING WITH VIDEO 06:16:00 [facility] XR CHEST 1 VIEW 2021-08-27 Gail Joya [facility] PORTABLE / BEDSIDE 02:27:00 [facility] POCT-GLUCOSE METER 2021-08-27 [facility] 01:37:00 [facility] PREPARE RBC 2021-08-26 Ramin De [facility] 23:55:00 [facility] POCT-GLUCOSE METER 2021-08-26 [facility] 18:09:00 [facility] HEMODIALYSIS INPATIENT 2021-08-26 Demar Moore [facility] 16:10:19 [facility] POCT-GLUCOSE METER 2021-08-26 [facility] 13:00:00 [facility] APTT 2021-08-26 Noorbhai, Jones [facility] edical 10:08:00 [facility] POCT-GLUCOSE METER 2021-08-26 [facility] 05:24:00 [facility] BLOOD GAS, ARTERIAL 2021-08-26 Lion [facility] 04:29:00 [facility] BASIC METABOLIC PANEL 2021-08-26 Lion [facility] 04:28:00 [facility] MAGNESIUM 2021-08-26 Lion [facility] Medical 04:28:00 [facility] PHOSPHORUS 2021-08-26 Lion [facility] 04:28:00 [facility] VALPROIC ACID LEVEL, 2021-08-26 Pittard, Brisa [facility] TOTAL 04:28:00 [facility] APTT 2021-08-26 Noorbhai, Jones [facility] 04:27:00 [facility] XR CHEST 1 VIEW 2021-08-26 Gail Joya [facility] PORTABLE / BEDSIDE 02:31:00 [facility] CBC W/PLT COUNT & AUTO 2021-08-26 Lion [facility] DIFFERENTIAL 00:48:00 [facility] CBC W/PLT COUNT & AUTO 2021-08-26 Priti Seymour [facility] DIFFERENTIAL 00:48:00 [facility] POCT-GLUCOSE METER 2021-08-25 [facility] 23:25:00 [facility] APTT 2021-08-25 [facility] edical 21:28:00 [facility] TRANSFUSE LEUKO-REDUCED 2021-08-25 [facility] RED BLOOD CELLS 19:00:00 [facility] POCT-GLUCOSE METER 2021-08-25 [facility] 18:13:00 [facility] APTT 2021-08-25 [facility] edical 14:25:00 [facility] [facility] POCT-GLUCOSE METER 2021-08-25 [facility] 12:43:00 [facility] PREPARE LEUKO-REDUCED 2021-08-25 [facility] RBC 12:14:00 [facility] APTT 2021-08-25 Vandana Andrade [facility] 11:00:00 [facility] LACTIC ACID, VENOUS 2021-08-25 Nichelle Day [facility] 11:00:00 Center TYPE AND SCREEN, 2021-08-25 [facility] AUTOMATED 11:00:00 [facility] SARS-COV2/RT-PCR ([facility] 2021-08-25 [facility] & REF LABS) 10:50:00 [facility] CBC (HEMOGRAM ONLY) 2021-08-25 Priti Seymour [facility] 05:54:00 [facility] POCT-GLUCOSE METER 2021-08-25 [facility] 05:50:00 [facility] BLOOD GAS, ARTERIAL 2021-08-25 Elisabet Seymourutha [facility] 02:52:00 [facility] CBC W/PLT COUNT & AUTO 2021-08-25 [facility] 02:52[facility]00 Center BASIC METABOLIC PANEL 2021-08-25 [facility] 02:52:00 Center MAGNESIUM 2021-08-25 [facility] 02:52:00 Center PHOSPHORUS 2021-08-25 [facility] 02:52:00 [facility] LACTIC ACID, VENOUS 2021-08-25 Lion [facility] 02:52:00 Center APTT 2021-08-25 [facility] 02:52:00 [facility] CREATINE KINASE (CK) 2021-08-25 Nichelle Day [facility] 02:52:00 [facility] CBC W/PLT COUNT & AUTO 2021-08-25 [facility] 02:52:00 [facility] HEPATIC FUNCTION PANEL 2021-08-25 Nichelle Day [facility] 02:52:00 Center XR CHEST 1 VIEW 2021-08-25 Gail Joya [facility] PORTABLE / BEDSIDE 02:33:00 [facility] POCT-GLUCOSE METER 2021-08-24 [facility] 23:10:00 [facility] POCT-GLUCOSE METER 2021-08-24 [facility] 17:03:00 [facility] APTT 2021-08-24 [facility] edical 16:50:00 [facility] LACTIC ACID, ARTERIAL 2021-08-24 [facility] 16:50:00 [facility] POCT-GLUCOSE METER 2021-08-24 [facility] 14:19:00 [facility] HEMODIALYSIS INPATIENT 2021-08-24 Demar Moore [facility] 11:19:00 Center XR CHEST 1 VIEW 2021-08-24 [facility] edical PORTABLE / BEDSIDE 09:46:00 [facility] POCT-GLUCOSE METER 2021-08-24 [facility] 05:49:00 [facility] PHENYTOIN LEVEL, TOTAL 2021-08-24 [facility], Sherita [facility] 05:41:00 [facility] BLOOD GAS, ARTERIAL 2021-08-24 [place] [facility] 04:58:00 [facility] CBC W/PLT COUNT & AUTO 2021-08-24 [facility] DIFFERENTIAL 04:54:00 [facility] BASIC METABOLIC PANEL 2021-08-24 [facility] 04:54:00 [facility] MAGNESIUM 2021-08-24 [facility] 04:54:00 [facility] PHOSPHORUS 2021-08-24 [facility] 04:54:00 [facility] CALCIUM, IONIZED 2021-08-24 [place] [facility] 04:54:00 [facility] LACTIC ACID, VENOUS 2021-08-24 Lion [facility] 04:54:00 [facility] CBC W/PLT COUNT & AUTO 2021-08-24 [place] [facility] DIFFERENTIAL 04:54:00 [facility] (CELLAVISION MANUAL 2021-08-24 Lion [facility] DIFF) 04:54:00 [facility] APTT 2021-08-24 [facility] 04:53:00 [facility] X[facility] ABDOMEN/KUB 1 VIEW 2021-08-24 [facility] PORTABLE 00:26:00 [facility] XR CHEST 1 VIEW 2021-08-24 Gail Joya [facility] PORTABLE / BEDSIDE 00:25:00 [facility] POCT-GLUCOSE METER 2021-08-23 [facility] 23:48:00 [facility] APTT 2021-08-23 [facility] edical 20:32:00 [facility] APTT 2021-08-23 [facility] edical 18:28:00 [facility] POCT-GLUCOSE METER 2021-08-23 [facility] 16:40:00 [facility] POCT-GLUCOSE METER 2021-08-23 [facility] hospital[facility]oe Acevedo [facility] 11:52:00 [facility] APTT 2021-08-[address] [facility] edical 11:46:00 [facility] VENOUS DOPPLER ARMS 2021-08-23 Luis Eduardo Talamantes [facility] BILATERAL 10:15:00 [facility] XR CHEST 1 VIEW 2021-08-23 Dinesh Head [facility] PORTABLE / BEDSIDE 09:25:00 [facility] SPUTUM CULTURE + GRAM 2021-08-23 Dinesh Head [facility] STAIN 09:21:00 [facility] PROCALCITONIN 2021-08-[address] edical 09:03:00 [facility] EEG 12-26 HR CONTINUOUS 2021-08-23 Ravinder Cunha [facility] MONITORING WITH VIDEO 06:07:00 [facility] POCT-GLUCOSE METER 2021-08-23 [facility] 05:13:00 [facility] BLOOD GAS, ARTERIAL 2021-08-23 [facility] 03:48:00 [facility] CBC W/PLT COUNT & AUTO 2021-08-23 [facility] DIFFERENTIAL 03:47:00 [facility] BASIC METABOLIC PANEL 2021-08-23 [facility] 03:47:00 [facility] MAGNESIUM 2021-08-23 [facility] 03:47:00 [facility] PHOSPHORUS 2021-08-23 [facility] 03:47:00 [facility] CBC W/PLT COUNT & AUTO 2021-08-23 [facility] DIFFERENTIAL 03:47:00 [facility] (CELLAVISION MANUAL 2021-08-[address] [facility] DIFF) 03:47:00 Center XR CHEST 1 VIEW 2021-08-23 Gail Joya [facility] Medical PORTABLE / BEDSIDE 01:23:00 [facility] POCT-GLUCOSE METER 2021-08-23 Elmer Acevedo [facility] 00:24:00 [facility] ALBUMIN 2021-08-22 Demar Moore [facility] 16:57:00 [facility] POCT-GLUCOSE METER 2021-08-22 Elmer Acevedo [facility] 16:56:00 [facility] HEMODIALYSIS INPATIENT 2021-08-22 Demar Moore [facility] 11:22:25 [facility] EEG 12-26 HR CONTINUOUS 2021-08-22 Ravinder Cunha [facility] MONITORING WITH VIDEO 07:49:00 [facility] POCT-GLUCOSE METER 2021-08-[address] [facility] Medical 05:37:00 [facility] BASIC METABOLIC PANEL 2021-08-22 [facility], [facility] Medical 03:58:00 [facility] MAGNESIUM 2021-08-22 [facility], [facility] 03:58:00 [facility] CBC W/PLT COUNT & AUTO 2021-08-22 [facility], [facility] Medical DIFFERENTIAL 03:58:00 [facility] BLOOD GAS, ARTERIAL 2021-08-22 [facility], [facility] Medical 03:58:00 [facility] PHOSPHORUS 2021-08-22 [facility], [facility] 03:58:00 [facility] CBC W/PLT COUNT & AUTO 2021-08-22 [facility], [facility] Medical DIFFERENTIAL 03:58:00 [facility] (CELLAVISION MANUAL 2021-08-22 [facility], [facility] Medical DIFF) 03:58:00 [facility] XR CHEST 1 VIEW 2021-08-22 Gail Joya [facility] Medical PORTABLE / BEDSIDE 00:32:00 [facility] POCT-GLUCOSE METER 2021-08-21 [facility], [facility] Medical 23:43:00 [facility] BASIC METABOLIC PANEL 2021-08-21 Dilcia, Fnu [facility] 15:55:00 [facility] PHOSPHORUS 2021-08-21 Luis Eduardo Talamantes [facility] 15:55:00 [facility] PHENYTOIN LEVEL, TOTAL 2021-08-21 Gail Joya I [facility] 12:14:00 [facility] HEMOGLOBIN AND 2021-08-21 [facility] edical HEMATOCRIT 12:14:00 [facility] BASIC METABOLIC PANEL 2021-08-21 [facility] 12:14:00 [facility] CBC W/PLT COUNT & AUTO 2021-08-21 Dilcia, [facility] DIFFERENTIAL 12:14:00 [facility] MAGNESIUM 2021-08-21 Dilcia, [facility] ical 12:14:00 [facility] PHOSPHORUS 2021-08-21 Dilcia, [facility] ical 12:14:00 [facility] CBC W/PLT COUNT & AUTO 2021-08-21 Dilcia, [facility] DIFFERENTIAL 12:14:00 [facility] IGG INDEX (CSF + BLOOD) 2021-08-21 [facility], [facility] 12:10:00 [facility] PROTEIN, CSF 2021-08-21 [facility] edical 12:09:00 [facility] CSF CELL COUNT 2021-08-21 [facility], [facility] edical W/DIFFERENTIAL 12:09:00 [facility] CSF CULTURE + GRAM 2021-08-21 [facility], [facility] s Medical STAIN 12:09:00 [facility] GLUCOSE, CSF 2021-08-21 [facility] edical 12:09:00 [facility] MENINGITIS/ENCEPHALITIS 2021-08-21 [facility], [facility] Medical PANEL 12:09:00 [facility] PARANEOPLASTIC AB EVAL 2021-08-21 [facility], [facility] W/ REFLEX TITER & LB, 12:09:00 [facility] CSF WEST N[place] VIRUS, CSF, 2021-08-21 Noorbhai, Jones [facility] IGG & IGM 12:09:00 Zoebali [facility] EEG 12-26 HR CONTINUOUS 2021-08-21 Ravinder Cunha [facility] MONITORING WITH VIDEO 09:37:58 [facility] XR CHEST 1 VIEW 2021-08-21 Gail Joya [facility] PORTABLE / BEDSIDE 07:49:00 [facility] POCT-GLUCOSE METER 2021-08-21 [facility], [facility] 06:18:00 [facility] BLOOD GAS, ARTERIAL 2021-08-21 [facility], [facility] 03:24:00 [facility] PHENYTOIN LEVEL, TOTAL 2021-08-21 Dilcia, Fnu [facility] AND FREE 03:23:00 [facility] BASIC METABOLIC PANEL 2021-08-21 [facility], [facility] 03:23:00 [facility] MAGNESIUM 2021-08-21 [facility], [facility] Medical 03:23:00 [facility] PHOSPHORUS 2021-08-21 [facility], [facility] Medical 03:23:00 [facility] CBC W/PLT COUNT & AUTO 2021-08-21 [facility], [facility] DIFFERENTIAL 03:23:00 [facility] CBC W/PLT COUNT & AUTO 2021-08-21 [facility], [facility] DIFFERENTIAL 03:23:00 [facility] POCT-GLUCOSE METER 2021-08-21 [facility], [facility] 00:20:00 [facility] ECG 12-LEAD 2021-08-20 Unknown, Hl7 [facility] 23:09:01 [facility] ECG 12-LEAD 2021-08-20 PittardBrisa [facility] ical 23:08:35 [facility] ECG 12-LEAD 2021-08-20 Unknown, Hl7 [facility] 23:08:35 [facility] POCT-GLUCOSE METER 2021-08-20 [facility], [facility] 22:22:00 [facility] POCT-GLUCOSE METER 2021-08-20 [facility], [facility] 17:25:00 Center PHENYTOIN LEVEL, TOTAL 2021-08-20 Dinesh Head [facility] 14:09:00 [facility] [place] INSERT 2021-08-20 Luis Eduardo Talamantes [facility] CATH,ART,PERCUT,SHORTTE 13:28:00 [facility] RM POCT-GLUCOSE METER 2021-08-20 [facility] Ramin [facility] 12:04:00 [facility] XR ABDOMEN/KUB 1 VIEW 2021-08-20 Dinesh Head [facility] PORTABLE 11:57:00 [facility] POCT-GLUCOSE METER 2021-08-20 [facility], Ramin [facility] 11:04:00 [facility] EEG 12-26 HR CONTINUOUS 2021-08-20 Ravinder Cunha [facility] MONITORING WITH VIDEO 10:52:21 [facility] POCT-GLUCOSE METER 2021-08-20 [facility], [facility] 07:02:00 [facility] HEMODIALYSIS INPATIENT 2021-08-20 Maria Dolores [facility] 06:21:50 [facility] POCT-GLUCOSE METER 2021-08-20 [facility] Medical 06:11:00 [facility] BLOOD GAS, ARTERIAL 2021-08-20 [facility], [facility] 04:29:00 [facility] PTH, INTACT 2021-08-[address] [facility] 04:28:00 [facility] CBC W/PLT COUNT & AUTO 2021-08-20 [facility] DIFFERENTIAL 04:28:00 [facility] BASIC METABOLIC PANEL 2021-08-20 [facility], [facility] Medical 04:28:00 [facility] MAGNESIUM 2021-08-20 [facility], [facility] 04:28:00 [facility] PHOSPHORUS 2021-08-20 [facility] 04:28:00 [facility] CBC W/PLT COUNT & AUTO 2021-08-20 [facility], [facility] Medical DIFFERENTIAL 04:28:00 [facility] POCT-GLUCOSE METER 2021-08-19 [facility] 19:04:00 [facility] POCT-GLUCOSE METER 2021-08-19 [facility] 11:51:00 [facility] XR ABDOMEN/KUB 1 VIEW 2021-08-19 Negrete, [facility] Medical PORTABLE 10:50:00 [facility] CENTRAL LINE 2021-08-19 Negrete, [facility] ical 10:41:04 [facility] US GUIDE, VASCULAR 2021-08-19 Negrete, [facility] ACCESS 10:41:04 [facility] XR CHEST 1 VIEW 2021-08-19 Negrete, [facility] ical PORTABLE / BEDSIDE 10:35:00 [facility] SARS-COV2/RT-PCR ([facility] 2021-08-19 [facility], [facility] & REF LABS) 09:43:00 [facility] INTUBATION 2021-08-19 Tyson Demetrius Roblero [facility] 09:37:37 [facility] BLOOD GAS, ARTERIAL 2021-08-19 Negrete, [facility] 09:34:00 [facility] POCT-GLUCOSE METER 2021-08-19 Isaac Meehan [facility] 08:10:00 [facility] POCT-GLUCOSE METER 2021-08-19 Isaac Meehan [facility] 06:08:00 [facility] CBC W/PLT COUNT & AUTO 2021-08-19 Juaquin Mobin [facility] DIFFERENTIAL 03:37:00 [facility] BASIC METABOLIC PANEL 2021-08-[address] [facility] Medical 03:37:00 [facility] CBC W/PLT COUNT & AUTO 2021-08-19 Juaquin, Mobin [facility] Medical DIFFERENTIAL 03:37:00 [facility] POCT-GLUCOSE METER 2021-08-18 [facility]an [facility] 21:06:00 [facility] MR BRAIN WITHOUT IV 2021-08-18 Juaquin Mobin [facility] Medical CONTRAST 15:58:[address] BRAIN WITHOUT IV 2021-08-18 Negrete, [facility] Medical CONTRAST 15:56:00 [facility] POCT-GLUCOSE METER 2021-08-18 Isaac Meehan Siraj [facility] 10:36:00 [facility] CBC W/PLT COUNT & AUTO 2021-08-18 Jenifer Santos [facility] DIFFERENTIAL 09:53:00 [facility] COMPREHENSIVE METABOLIC 2021-08-18 Tom Jenifer [facility] PANEL 09:53:00 [facility] MAGNESIUM 2021-08-18 NegretePilar matute [facility] ical 09:53:00 [facility] CBC W/PLT COUNT & AUTO 2021-08-18 Loc Santosmikala [facility] DIFFERENTIAL 09:53:00 [facility] POCT-GLUCOSE METER 2021-08-18 Isaac Meehan [facility] 08:48:00 [facility] POCT-GLUCOSE METER 2021-08-17 Isaac Meehan [facility] 17:29:00 [facility] POCT-GLUCOSE METER 2021-08-17 Isaac Meehan [facility] 12:33:00 [facility] POCT-GLUCOSE METER 2021-08-17 Isaac Meehan [facility] 10:39:00 [facility] COMPREHENSIVE METABOLIC 2021-08-17 Marianela Meehangeorgette [facility] PANEL 04:57:00 [facility] CBC W/PLT COUNT & AUTO 2021-08-17 Isaac Meehan [facility] DIFFERENTIAL 04:57:00 [facility] MAGNESIUM 2021-08-17 Marianela Meehangeorgette [facility]iciaTampa [facility] ed[facility] 04:57:00 [facility] CBC W/PLT COUNT & AUTO 2021-08-17 Isaac Meehan [facility] DIFFERENTIAL 04:57:00 [facility] IR TUNNELED CATHETER 2021-08-16 Loc Santosmikala [facility] INSERTION 10:00:00 [facility] COMPREHENSIVE METABOLIC 2021-08-16 Marianela Meehangeorgette [facility]iciaTampa [facility] PANEL 04:57:00 [facility] CBC W/PLT COUNT & AUTO 2021-08-16 Isaac Meehan [facility] DIFFERENTIAL 04:57:00 [facility] MAGNESIUM 2021-08-16 Isaac Meehan [facility] ed[facility] 04:57:00 [facility] CBC W/PLT COUNT & AUTO 2021-08-16 Marianela Meehangeorgette Staples [facility] Medical DIFFERENTIAL 04:57:00 [facility] GI PATHOGEN PROFILE BY 2021-08-15 Say Bautista [facility] PCR 14:45:00 [facility] CALCIUM, IONIZED 2021-08-15 Jann, Yo Oneil [facility] 03:35:00 [facility] COMPREHENSIVE METABOLIC 2021-08-15 ZoranMarianela alegriageorgette Staples [facility] Medical PANEL 03:35:00 [facility] CBC W/PLT COUNT & AUTO 2021-08-15 Isaac Meehan Jhoan [facility] Medical DIFFERENTIAL 03:35:00 [facility] MAGNESIUM 2021-08-15 Marianela Meehangeorgette [facility] ed[facility] 03:35:00 [facility] HEPATITIS B SURFACE 2021-08-15 Jann Yo [facility] ANTIGEN 03:35:00 [facility] HEPATITIS B SURFACE 2021-08-15 Jann [facility] ANTIBODY 03:35:00 [facility] CBC W/PLT COUNT & AUTO 2021-08-15 Isaac Meehan Fridaricky [facility] Medical DIFFERENTIAL 03:35:00 [facility] PREPARE LEUKO-REDUCED 2021-08-13 Marianela Meehangeorgette Staples [facility] RBC 23:55:00 [facility] BASIC METABOLIC PANEL 2021-08-13 Jann, [facility] 16:45:00 [facility] CBC W/PLT COUNT & AUTO 2021-08-13 Jann [facility] Medical DIFFERENTIAL 16:45:00 [facility] CALCIUM, IONIZED 2021-08-13 Jann, Yo Oneil [facility] 16:45:00 [facility] CBC W/PLT COUNT & AUTO 2021-08-13 Jann Yo [facility] Medical DIFFERENTIAL 16:45:00 [facility] PHOSPHORUS 2021-08-13 Jann, [facility] 10:59:00 [facility] C. DIFFICILE GDH TOXIN 2021-08-13 Jann [facility] 10:12:00 [facility] COMPREHENSIVE METABOLIC 2021-08-13 Brendan Hinojosa [facility] PANEL 04:52:00 [facility] CBC W/PLT COUNT & AUTO 2021-08-13 Garrettgvacbryson Brendan [facility] DIFFERENTIAL 04:52:00 [facility] MAGNESIUM 2021-08-13 Marianela Meehangeorgette Staples [facility] edical 04:52:00 [facility] CBC W/PLT COUNT & AUTO 2021-08-13 Susivacbryson Brendan [facility] DIFFERENTIAL 04:52:00 [facility] BASIC METABOLIC PANEL 2021-08-12 Cesar, Zheng [facility] 19:40:00 [facility] TRANSFUSE LEUKO-REDUCED 2021-08-12 [facility]John [facility] RED BLOOD CELLS 14:28:00 [facility] TYPE AND SCREEN, 2021-08-12 [facility] AUTOMATED 10:56:00 [facility] COMPREHENSIVE METABOLIC 2021-08-12 Chante [facility] PANEL 02:57:00 [facility] CBC W/PLT COUNT & AUTO 2021-08-12 Pongvacalbertaaramckay BrendanIndiana [facility] DIFFERENTIAL 02:57:00 [facility] FERRITIN 2021-08-12 Cesar, Zheng [facility] ical 02:57:00 [facility] MAGNESIUM 2021-08-12 Isaac Meehantheo [facility] M edical 02:57:00 [facility] CBC W/PLT COUNT & AUTO 2021-08-12 Garrettgvacbryson BrendanIndiana [facility] DIFFERENTIAL 02:57:00 [facility] BASIC METABOLIC PANEL 2021-08-11 Cesar, Zheng [facility] 18:00:00 [facility] MAGNESIUM 2021-08-11 Cesar, Zheng [facility] 18:00:00 [facility] 2D ECHO W/ DOPPLER 2021-08-11 Isaac [facility]hanmikalaSanta [facility]resita Hospital (CW/PW/COLOR) 13:37:08 [facility] COMPREHENSIVE METABOLIC 2021-08-[address] [facility] PANEL 04:42:00 [facility] CBC W/PLT COUNT & AUTO 2021-08-[address] [facility] DIFFERENTIAL 04:42:00 [facility] HEMOGLOBIN A1C 2021-08-11 PatrickBrendan bashir [facility] 04:42:00 [facility] LIPID PANEL 2021-08-11 MicaelaBrendan [facility] 04:42:00 [facility] MAGNESIUM 2021-08-11 CesarZheng [facility] 04:42:00 [facility] IRON, TIBC, % SAT. 2021-08-11 Cesar, Zheng [facility] (WITHOUT FERRITIN) 04:42:00 [facility] CBC W/PLT COUNT & AUTO 2021-08-11 PatrickBrendan bashir [facility] DIFFERENTIAL 04:42:00 [facility] CARDIAC CATH REPORT - 2021-08-11 Provider[facility]00 [facility] EKG-SCANNED 2021-08-11 Provider, [facility] AUTHORIZATION FOR 2020-01-30 Doctor Unassigned, No [facility] RELEASE OF PHI 06:01:00 [facility] MEDICAL 2019-05-23 Doctor Unassigned, No [facility] RELEASE/CLEARANCE FORMS 06:01:00 [facility] AUTHORIZATION FOR 2019-05-12 Doctor Unassigned, No [facility] RELEASE OF PHI 06:01:00 [facility] Breast Reduction [facility] Total Knee Replacement [facility] dical Hysterectomy [facility] Plan of Care Planned Activity Planned Date Details Comments Source Future Scheduled 2028-01-[address] [facility] [facility] 00:[facility] colon (procedure) [code = 024713903] Future Scheduled 2028-01-[address] [facility] 00:[facility] colon (procedure) [code = 518561436] Future Scheduled 2028-01-[address] [facility] [facility] 00:00:00 [facility] colon (procedure) [code = 758552176] Future Scheduled 2028-01-[address] [facility] [facility] 00:00:00 [facility] colon (procedure) [code = 995305513] Future Scheduled 2028-01-[address] [facility] 00:00[facility]00 [facility]procedure) [code = [id number]] Future Scheduled 2028-01-[address] [facility] 00:00[facility]00 [facility] ([facility] [code = 093824004] Future Scheduled 2024-08-[address] [facility] 00:00:00 (procedure) [code = [facility] [id number]] Future Scheduled 2024-08-[address] [facility] 00:00:00 (procedure) [code = [facility] [id number]] Future Scheduled 2024-08-[address] [facility] 00:00:00 (procedure) [code = [facility] [id number]] Future Scheduled 2024-08-[address] [facility] 00:00:00 (procedure) [code = [facility] [id number]] Future Scheduled 2024-08-[address] [facility] Test 00:00:00 (procedure) [code = [facility] [id number]] Future Scheduled 2024-08-[address] [facility] 00:00:00 (procedure) [code = [facility] [id number]] Future Scheduled 2024-08-[address] [facility] 00:00:00 (procedure) [code = [facility] [id number]] Future Scheduled 2022-12-24 [facility] 00:00:00 (>/= 19 yrs) [code = IMM Influenza Seasonal (>/= 19 yrs)] Future Scheduled 2022-12-24 [facility] Influ[facility] 00:00:00 (>/= 19 yrs) [code = IMM Influenza Seasonal (>/= 19 yrs)] Future Scheduled 2022-11-24 Influenza Vaccine (#1) [facility]00 [code = Influenza [facility] Vaccine (#1)] Future Scheduled 2022-11-24 Influenza Vaccine (#1) [facility] 00:00:00 [code = Influenza Medical Ce [facility]ter Vaccine (#1)] Future Scheduled 2022-09-[address] [facility] 00:00[facility]00 [facility] (12+) [code = Tobacco Cessation Counseling and Screening (12+)] Future Scheduled 2022-09-[address] [facility] Test 00:00:00 [facility] Scre[facility] (12+) [code = Tobacco Cessation Counseling and Screening (12+)] Future Scheduled 2022-09-[address] [facility] Test 00:00:00 [facility] Screening (12+) [code = Tobacco Cessation Counseling and Screening (12+)] Future Scheduled 2022-09-08 Screening for [facility] Test 07:17:24 malignant neoplasm of colon (procedure) [code = [id number]] Future Scheduled 2022-09-08 Screening for [facility] Test 07:17:24 malignant neoplasm of colon (procedure) [code = 168569142] Future Scheduled 2022-09-08 Screening for [facility] Test 07:17:24 malignant neoplasm of colon (procedure) [code = 295604881] Future Scheduled 2022-09-08 Pneumococcal Vaccine: [facility] Test 07:17:24 Pediatrics (0 to 5 Years) and At-Risk Patients (6 to 64 Years) (1 - PCV) [code = Pneumococcal Vaccine: Pediatrics (0 to 5 Years) and At-Risk Patients (6 to 64 Years) (1 - PCV)] Future Scheduled 2022-09-[address] [facility] Test 07:17:24 (procedure) [code = 119252702] Future Scheduled 2022-09-08 Screening for [facility] Test 07:17:24 malignant neoplasm of cervix (procedure) [code = 388099713] Future Scheduled 2022-09-08 Screening for [facility] Test 07:17:24 malignant neoplasm of colon (procedure) [code = 194523815] Future Scheduled 2022-09-08 Screening for [facility] Test 07:17:24 malignant neoplasm of colon (procedure) [code = 396160524] Future Scheduled 2022-09-08 SHINGLES VACCINES (1 [facility] Test 07:17:24 of 2) [code = SHINGLES VACCINES (1 of 2)] Future Scheduled 2022-09-08 BREAST CANCER [facility] Test 07:17:24 SCREENING [code = BREAST CANCER SCREENING] Future Scheduled 2022-09-08 COVID-19 VACCINE (4 - [facility] Test 07:17:24 Moderna series) [code = COVID-19 VACCINE (4 - Moderna series)] Future Scheduled 2022-09-08 Screening for [facility] Test 07:17:24 malignant neoplasm of colon (procedure) [code = 524790083] Future Scheduled 2022-09-08 Screening for [facility] Test 07:17:24 malignant neoplasm of colon (procedure) [code = 551830159] Future Scheduled 2022-09-08 Screening for [facility] Test 07:17:24 malignant neoplasm of colon (procedure) [code = 223236879] Future Scheduled 2022-09-08 Pneumococcal Vaccine: [facility] Test 07:17:24 Pediatrics (0 to 5 Years) and At-Risk Patients (6 to 64 Years) (1 - PCV) [code = Pneumococcal Vaccine: Pediatrics (0 to 5 Years) and At-Risk Patients (6 to 64 Years) (1 - PCV)] Future Scheduled 2022-09-[address] [facility] Test 07:17:24 (procedure) [code = 998191261] Future Scheduled 2022-09-08 Screening for [facility] Test 07:17:24 malignant neoplasm of cervix (procedure) [code = 530138806] Future Scheduled 2022-09-08 Screening for [facility] Test 07:17:24 malignant neoplasm of colon (procedure) [code = 688211694] Future Scheduled 2022-09-08 Screening for [facility] Test 07:17:24 malignant neoplasm of colon (procedure) [code = 805181938] Future Scheduled 2022-09-08 SHINGLES VACCINES (1 [facility] 07:17:24 of 2) [code = SHINGLES VACCINES (1 of 2)] Future Scheduled 2022-09-08 BREAST CANCER [facility] Test 07:17:24 SCREENING [code = BREAST CANCER SCREENING] Future Scheduled 2022-09-08 COVID-19 VACCINE (4 - [facility] Test 07:17:24 Moderna series) [code = COVID-19 VACCINE (4 - Moderna series)] Future Scheduled 2022-09-08 [facility]INE [facility] 07:17:24 [code = INFLUENZA VACCINE] Future Scheduled 2022-09-08 [facility] 07:17:24 [code = INFLUENZA VACCINE] Future Scheduled 2022-03-[address] [facility] Test 00:00:00 (12+) [code = [facility] DEPRESSION SCREENING (12+)] Future Scheduled 2022-03-[address] [facility] Test 00:00:00 (12+) [code = [facility] DEPRESSION SCREENING (12+)] Future Scheduled 2022-03-17 COVID-19 VACCINE (#1) [facility] Test 17:07:51 [code = COVID-19 VACCINE (#1)] Future Scheduled 2022-03-17 Pneumococcal Vaccine: [facility] Test 17:07:51 Pediatrics (0 to 5 Years) and At-Risk Patients (6 to 64 Years) (1 - PCV) [code = Pneumococcal Vaccine: Pediatrics (0 to 5 Years) and At-Risk Patients (6 to 64 Years) (1 - PCV)] Future Scheduled 2022-03-[address] [facility] Test 17:07:51 (procedure) [code = [id number]] Future Scheduled 2022-03-17 SHINGLES VACCINES (1 Met [facility] Test 17:07:51 of 2) [code = SHINGLES VACCINES (1 of 2)] Future Scheduled 2022-03-17 Screening for [facility] Test 17:07:51 malignant neoplasm of cervix (procedure) [code = 648597252] Future Scheduled 2022-03-17 BREAST CANCER [facility] Test 17:07:51 SCREENING [code = BREAST CANCER SCREENING] Future Scheduled 2022-03-[address] [facility] Test 17:07:51 [code = COLONOSCOPY SCREENING] Future Scheduled 2022-03-17 INFLUENZA VACCINE Method [facility] Test 17:07:51 [code = INFLUENZA VACCINE] Future Scheduled 2022-02-[address] [facility] Test 15:03:07 [code = COLONOSCOPY SCREENING] Future Scheduled 2022-02-13 INFLUENZA VACCINE [facility] Test 15:03:07 [code = INFLUENZA VACCINE] Future Scheduled 2022-02-13 HEPATITIS B VACCINES [facility] Test 15:03:07 (1 of 3 - 3-dose series) [code = HEPATITIS B VACCINES (1 of 3 - 3-dose series)] Future Scheduled 2022-02-13 COVID-19 VACCINE (#1) [facility] Test 15:03:07 [code = COVID-19 VACCINE (#1)] Future Scheduled 2022-02-13 Pneumococcal Vaccine: [facility] Test 15:03:07 Pediatrics (0 to 5 Years) and At-Risk Patients (6 to 64 Years) (1 - PCV) [code = Pneumococcal Vaccine: Pediatrics (0 to 5 Years) and At-Risk Patients (6 to 64 Years) (1 - PCV)] Future Scheduled 2022-02-[address] [facility] Test 15:03:07 (procedure) [code = 146597091] Future Scheduled 2022-02-13 SHINGLES VACCINES (1 [facility] Test 15:03:07 of 2) [code = SHINGLES VACCINES (1 of 2)] Future Scheduled 2022-02-13 Screening for [facility] Test 15:03:07 malignant neoplasm of cervix (procedure) [code = 824742536] Future Scheduled 2022-02-13 BREAST CANCER [facility] Test 15:03:07 SCREENING [code = BREAST CANCER SCREENING] Future Scheduled 2022-02-[address] [facility] (procedure) [code = 06054686] Future Scheduled 2022-02-[address] [facility] (procedure) [code = 25089557] Future Scheduled 2022-02-[address] [facility] (procedure) [code = 94906133] Future Scheduled 2022-02-[address] [facility] (procedure) [code = 41237220] Future Scheduled 2022-02-[address] [facility] (procedure) [code = 62880255] Future Scheduled 2022-02-[address] [facility] (procedure) [code = 19162138] Future Scheduled 2022-02-[address] [facility] (procedure) [code = 13027362] Future Scheduled 2022-02-06 HEPATITIS B VACCINES [facility] Test 08:04:10 (1 of 3 - 3-dose series) [code = HEPATITIS B VACCINES (1 of 3 - 3-dose series)] Future Scheduled 2022-02-06 COVID-19 VACCINE (#1) [facility] Test 08:04:10 [code = COVID-19 VACCINE (#1)] Future Scheduled 2022-02-06 Pneumococcal Vaccine: [facility] Test 08:04:10 Pediatrics (0 to 5 Years) and At-Risk Patients (6 to 64 Years) (1 - PCV) [code = Pneumococcal Vaccine: Pediatrics (0 to 5 Years) and At-Risk Patients (6 to 64 Years) (1 - PCV)] Future Scheduled 2022-02-[address] [facility] Test 08:04:10 (procedure) [code = 875523057] Future Scheduled 2022-02-06 SHINGLES VACCINES (1 [facility] Test 08:04:10 of 2) [code = SHINGLES VACCINES (1 of 2)] Future Scheduled 2022-02-06 Screening for [facility] Test 08:04:10 malignant neoplasm of cervix (procedure) [code = 636305517] Future Scheduled 2022-02-06 BREAST CANCER [facility] Test 08:04:10 SCREENING [code = BREAST CANCER SCREENING] Future Scheduled 2022-02-[address] [facility] Test 08:04:10 [code = COLONOSCOPY SCREENING] Future Scheduled 2022-02-06 INFLUENZA VACCINE [facility] Test 08:04:10 [code = INFLUENZA VACCINE] Future Scheduled 2021-12-24 [facility] 00:00:00 (>/= 19 yrs) [code = IMM Influenza Seasonal (>/= 19 yrs)] Future Scheduled 2021-12-24 [facility]MM [facility] 00:00:00 (>/= 19 yrs) [code = IMM Influenza Seasonal (>/= 19 yrs)] Future Scheduled 2021-12-24 [facility]MM [facility] 00:00:00 (>/= 19 yrs) [code = IMM Influenza Seasonal (>/= 19 yrs)] Future Scheduled 2021-12-24 [facility]MM [facility] 00:00:00 (>/= 19 yrs) [code = IMM Influenza Seasonal (>/= 19 yrs)] Future Scheduled 2021-12-24 [facility] 00:00:00 (>/= 19 yrs) [code = IMM Influenza Seasonal (>/= 19 yrs)] Future Scheduled 2021-12-24 [facility]MM [facility] 00:00:00 (>/= 19 yrs) [code = IMM Influenza Seasonal (>/= 19 yrs)] Future Scheduled 2021-12-24 [facility] 00:00:00 (>/= 19 yrs) [code = IMM Influenza Seasonal (>/= 19 yrs)] Future Scheduled 2021-12-24 [facility] 00:00:00 (>/= 19 yrs) [code = IMM Influenza Seasonal (>/= 19 yrs)] Future Scheduled 2021-12-24 [facility] 00:00:00 (>/= 19 yrs) [code = IMM Influenza Seasonal (>/= 19 yrs)] Future Scheduled 2021-12-24 [facility] 00:00:00 (>/= 19 yrs) [code = IMM Influenza Seasonal (>/= 19 yrs)] Future Scheduled 2021-11-24 INFLUENZA VACCINE (#1) [facility]00 [code = INFLUENZA Medical Ce nter VACCINE (#1)] Future Scheduled 2021-11-24 INFLUENZA VACCINE (#1) [facility] 00:00:00 [code = INFLUENZA Medical Ce nter VACCINE (#1)] Future Scheduled 2021-11-24 INFLUENZA VACCINE (#1) [facility] 00:00:00 [code = INFLUENZA Medical Ce nter VACCINE (#1)] Future Scheduled 2021-11-[address] [facility] Test 00:00:00 (Season Ended) [code = [facility] al Center INFLUENZA VACCINE (Season Ended)] Future Scheduled 2021-11-[address] [facility] Test 00:00:00 (Season Ended) [code = [facility] al Center INFLUENZA VACCINE (Season Ended)] Future Scheduled 2021-10-13 COVID-19 VACCINE (#1) [facility] Test 06:56:00 [code = COVID-19 VACCINE (#1)] Future Scheduled 2021-10-13 Pneumococcal Vaccine: [facility] Test 06:56:00 Pediatrics (0 to 5 Years) and At-Risk Patients (6 to 64 Years) (1 - PCV) [code = Pneumococcal Vaccine: Pediatrics (0 to 5 Years) and At-Risk Patients (6 to 64 Years) (1 - PCV)] Future Scheduled 2021-10-13 Hepatitis C screening [facility] Test 06:56:00 (procedure) [code = 649160141] Future Scheduled 2021-10-13 SHINGLES VACCINES (1 Met [facility] Test 06:56:00 of 2) [code = SHINGLES VACCINES (1 of 2)] Future Scheduled 2021-10-13 Screening for [facility] Test 06:56:00 malignant neoplasm of cervix (procedure) [code = 810277036] Future Scheduled 2021-10-13 BREAST CANCER [facility] Test 06:56:00 SCREENING [code = BREAST CANCER SCREENING] Future Scheduled 2021-10-13 COLONOSCOPY SCREENING [facility] Test 06:56:00 [code = COLONOSCOPY SCREENING] Future Scheduled 2021-10-13 INFLUENZA VACCINE [facility] 06:56:00 [code = INFLUENZA VACCINE] Future Scheduled 2021-09-21 COVID-19 VACCINE (1) [facility] Test 10:27:20 [code = COVID-19 VACCINE (1)] Future Scheduled 2021-09-21 Pneumococcal Vaccine: [facility] Test 10:27:20 Pediatrics (0 to 5 Years) and At-Risk Patients (6 to 64 Years) (1 - PCV) [code = Pneumococcal Vaccine: Pediatrics (0 to 5 Years) and At-Risk Patients (6 to 64 Years) (1 - PCV)] Future Scheduled 2021-09-[address] [facility] Test 10:27:20 (procedure) [code = 414954077] Future Scheduled 2021-09-21 SHINGLES VACCINES (1 Met [facility] Test 10:27:20 of 2) [code = SHINGLES VACCINES (1 of 2)] Future Scheduled 2021-09-21 Screening for [facility] Test 10:27:20 malignant neoplasm of cervix (procedure) [code = 328417446] Future Scheduled 2021-09-21 BREAST CANCER [facility] Test 10:27:20 SCREENING [code = BREAST CANCER SCREENING] Future Scheduled 2021-09-[address] [facility] Test 10:27:20 [code = COLONOSCOPY SCREENING] Future Scheduled 2021-09-21 INFLUENZA VACCINE [facility] 10:27:20 [code = INFLUENZA VACCINE] Future Scheduled 2021-08-25 INFLUENZA VACCINE Method [facility] Test 09:02:31 [code = INFLUENZA VACCINE] Future Scheduled 2021-08-25 COVID-19 VACCINE (1) [facility] Test 09:02:31 [code = COVID-19 VACCINE (1)] Future Scheduled 2021-08-25 Pneumococcal Vaccine: [facility] Test 09:02:31 Pediatrics (0 to 5 Years) and At-Risk Patients (6 to 64 Years) (1 - PCV) [code = Pneumococcal Vaccine: Pediatrics (0 to 5 Years) and At-Risk Patients (6 to 64 Years) (1 - PCV)] Future Scheduled 2021-08-[address] [facility] Test 09:02:31 (procedure) [code = 069640621] Future Scheduled 2021-08-25 SHINGLES VACCINES (1 [facility] Test 09:02:31 of 2) [code = SHINGLES VACCINES (1 of 2)] Future Scheduled 2021-08-25 Screening for [facility] Test 09:02:31 malignant neoplasm of cervix (procedure) [code = 831201526] Future Scheduled 2021-08-25 BREAST CANCER [facility] Test 09:02:31 SCREENING [code = BREAST CANCER SCREENING] Future Scheduled 2021-08-[address] [facility] Test 09:02:31 [code = COLONOSCOPY SCREENING] Future Scheduled 2021-08-25 INFLUENZA VACCINE Method [facility] Test 09:02:31 [code = INFLUENZA VACCINE] Future Scheduled 2021-08-25 COVID-19 VACCINE (1) [facility] Test 09:02:31 [code = COVID-19 VACCINE (1)] Future Scheduled 2021-08-25 Pneumococcal Vaccine: [facility] Test 09:02:31 Pediatrics (0 to 5 Years) and At-Risk Patients (6 to 64 Years) (1 - PCV) [code = Pneumococcal Vaccine: Pediatrics (0 to 5 Years) and At-Risk Patients (6 to 64 Years) (1 - PCV)] Future Scheduled 2021-08-[address] [facility] Test 09:02:31 (procedure) [code = 474338298] Future Scheduled 2021-08-25 SHINGLES VACCINES (1 [facility] Test 09:02:31 of 2) [code = SHINGLES VACCINES (1 of 2)] Future Scheduled 2021-08-25 Screening for [facility] Test 09:02:31 malignant neoplasm of cervix (procedure) [code = 582295712] Future Scheduled 2021-08-25 BREAST CANCER [facility] Test 09:02:31 SCREENING [code = BREAST CANCER SCREENING] Future Scheduled 2021-08-[address] [facility] Test 09:02:31 [code = COLONOSCOPY SCREENING] Future Scheduled 2021-08-25 INFLUENZA VACCINE Method [facility] Test 09:02:31 [code = INFLUENZA VACCINE] Future Scheduled 2021-08-25 COVID-19 VACCINE (1) [facility] Test 09:02:31 [code = COVID-19 VACCINE (1)] Future Scheduled 2021-08-25 Pneumococcal Vaccine: [facility] Test 09:02:31 Pediatrics (0 to 5 Years) and At-Risk Patients (6 to 64 Years) (1 - PCV) [code = Pneumococcal Vaccine: Pediatrics (0 to 5 Years) and At-Risk Patients (6 to 64 Years) (1 - PCV)] Future Scheduled 2021-08-[address] [facility] Test 09:02:31 (procedure) [code = 677756571] Future Scheduled 2021-08-25 COVID-19 VACCINE (1) [facility] Test 09:02:31 [code = COVID-19 VACCINE (1)] Future Scheduled 2021-08-25 SHINGLES VACCINES (1 [facility] Test 09:02:31 of 2) [code = SHINGLES VACCINES (1 of 2)] Future Scheduled 2021-08-25 Screening for [facility] Test 09:02:31 malignant neoplasm of cervix (procedure) [code = 338338550] Future Scheduled 2021-08-25 BREAST CANCER [facility] Test 09:02:31 SCREENING [code = BREAST CANCER SCREENING] Future Scheduled 2021-08-[address] [facility] Test 09:02:31 [code = COLONOSCOPY SCREENING] Future Scheduled 2021-08-25 INFLUENZA VACCINE Method [facility] Test 09:02:31 [code = INFLUENZA VACCINE] Future Scheduled 2021-08-25 COVID-19 VACCINE (1) [facility] Test 09:02:31 [code = COVID-19 VACCINE (1)] Future Scheduled 2021-08-25 Pneumococcal Vaccine: [facility] Test 09:02:31 Pediatrics (0 to 5 Years) and At-Risk Patients (6 to 64 Years) (1 - PCV) [code = Pneumococcal Vaccine: Pediatrics (0 to 5 Years) and At-Risk Patients (6 to 64 Years) (1 - PCV)] Future Scheduled 2021-08-[address] [facility] Test 09:02:31 (procedure) [code = 543398122] Future Scheduled 2021-08-25 SHINGLES VACCINES (1 [facility] Test 09:02:31 of 2) [code = SHINGLES VACCINES (1 of 2)] Future Scheduled 2021-08-25 Screening for [facility] Test 09:02:31 malignant neoplasm of cervix (procedure) [code = 255465664] Future Scheduled 2021-08-25 Pneumococcal Vaccine: [facility] Test 09:02:31 Pediatrics (0 to 5 Years) and At-Risk Patients (6 to 64 Years) (1 - PCV) [code = Pneumococcal Vaccine: Pediatrics (0 to 5 Years) and At-Risk Patients (6 to 64 Years) (1 - PCV)] Future Scheduled 2021-08-25 BREAST CANCER [facility] Test 09:02:31 SCREENING [code = BREAST CANCER SCREENING] Future Scheduled 2021-08-[address] [facility] Test 09:02:31 [code = COLONOSCOPY SCREENING] Future Scheduled 2021-08-25 INFLUENZA VACCINE Method [facility] Test 09:02:31 [code = INFLUENZA VACCINE] Future Scheduled 2021-08-25 COVID-19 VACCINE (1) [facility] Test 09:02:31 [code = COVID-19 VACCINE (1)] Future Scheduled 2021-08-25 Pneumococcal Vaccine: [facility] Test 09:02:31 Pediatrics (0 to 5 Years) and At-Risk Patients (6 to 64 Years) (1 - PCV) [code = Pneumococcal Vaccine: Pediatrics (0 to 5 Years) and At-Risk Patients (6 to 64 Years) (1 - PCV)] Future Scheduled 2021-08-[address] [facility] Test 09:02:31 (procedure) [code = 612431860] Future Scheduled 2021-08-25 SHINGLES VACCINES (1 [facility] Test 09:02:31 of 2) [code = SHINGLES VACCINES (1 of 2)] Future Scheduled 2021-08-25 Screening for [facility] Test 09:02:31 malignant neoplasm of cervix (procedure) [code = 298893969] Future Scheduled 2021-08-25 BREAST CANCER [facility] Test 09:02:31 SCREENING [code = BREAST CANCER SCREENING] Future Scheduled 2021-08-[address] [facility] Test 09:02:31 [code = COLONOSCOPY SCREENING] Future Scheduled 2021-08-[address] [facility] Test 09:02:31 (procedure) [code = 790245928] Future Scheduled 2021-08-25 INFLUENZA VACCINE Method [facility] Test 09:02:31 [code = INFLUENZA VACCINE] Future Scheduled 2021-08-25 COVID-19 VACCINE (1) [facility] Test 09:02:31 [code = COVID-19 VACCINE (1)] Future Scheduled 2021-08-25 Pneumococcal Vaccine: [facility] Test 09:02:31 Pediatrics (0 to 5 Years) and At-Risk Patients (6 to 64 Years) (1 - PCV) [code = Pneumococcal Vaccine: Pediatrics (0 to 5 Years) and At-Risk Patients (6 to 64 Years) (1 - PCV)] Future Scheduled 2021-08-[address] [facility] Test 09:02:31 (procedure) [code = 003122758] Future Scheduled 2021-08-25 SHINGLES VACCINES (1 [facility] Test 09:02:31 of 2) [code = SHINGLES VACCINES (1 of 2)] Future Scheduled 2021-08-25 Screening for [facility] Test 09:02:31 malignant neoplasm of cervix (procedure) [code = 538872408] Future Scheduled 2021-08-25 BREAST CANCER [facility] Test 09:02:31 SCREENING [code = BREAST CANCER SCREENING] Future Scheduled 2021-08-[address] [facility] Test 09:02:31 [code = COLONOSCOPY SCREENING] Future Scheduled 2021-08-25 INFLUENZA VACCINE Method [facility] Test 09:02:31 [code = INFLUENZA VACCINE] Future Scheduled 2021-08-25 COVID-19 VACCINE (1) [facility] Test 09:02:31 [code = COVID-19 VACCINE (1)] Future Scheduled 2021-08-25 SHINGLES VACCINES (1 [facility] Test 09:02:31 of 2) [code = SHINGLES VACCINES (1 of 2)] Future Scheduled 2021-08-25 Pneumococcal Vaccine: [facility] Test 09:02:31 Pediatrics (0 to 5 Years) and At-Risk Patients (6 to 64 Years) (1 - PCV) [code = Pneumococcal Vaccine: Pediatrics (0 to 5 Years) and At-Risk Patients (6 to 64 Years) (1 - PCV)] Future Scheduled 2021-08-[address] [facility] Test 09:02:31 (procedure) [code = 175908928] Future Scheduled 2021-08-25 SHINGLES VACCINES (1 [facility] Test 09:02:31 of 2) [code = SHINGLES VACCINES (1 of 2)] Future Scheduled 2021-08-25 Screening for [facility] Test 09:02:31 malignant neoplasm of cervix (procedure) [code = 775753730] Future Scheduled 2021-08-25 BREAST CANCER [facility] Test 09:02:31 SCREENING [code = BREAST CANCER SCREENING] Future Scheduled 2021-08-[address] [facility] Test 09:02:31 [code = COLONOSCOPY SCREENING] Future Scheduled 2021-08-25 INFLUENZA VACCINE Method [facility] Test 09:02:31 [code = INFLUENZA VACCINE] Future Scheduled 2021-08-25 Screening for [facility] Test 09:02:31 malignant neoplasm of cervix (procedure) [code = 608903306] Future Scheduled 2021-08-25 BREAST CANCER [facility] Test 09:02:31 SCREENING [code = BREAST CANCER SCREENING] Future Scheduled 2021-08-[address] [facility] Test 09:02:31 [code = COLONOSCOPY SCREENING] Future Scheduled 2021-03-27 MEDICARE ANNUAL [...] SCREENING (12+)] Future Scheduled 2020-12-24 IMM Influenza Seasonal [facility] 00:00:00 (>/= 19 yrs) [code = IMM Influenza Seasonal (>/= 19 yrs)] Future Scheduled 2020-12-24 IMM Influenza Seasonal [facility] 00:00:00 (>/= 19 yrs) [code = IMM Influenza Seasonal (>/= 19 yrs)] Future Scheduled 2020-12-24 [facility]MM Influenza [facility] 00:00:00 (>/= 19 yrs) [code = IMM Influenza Seasonal (>/= 19 yrs)] Future Scheduled 2020-11-[address] [facility] 00:00:00 [facility] breast (procedure) [code = 049257458] Future Scheduled 2020-11-[address] [facility] 00:00:00 [facility] breast (procedure) [code = 432767454] Future Scheduled 2020-11-[address] [facility] 00:00:00 [facility] breast (procedure) [code = 080175693] Future Scheduled 2020-11-[address] [facility] 00:00:00 [facility] breast (procedure) [code = 356823989] Future Scheduled 2020-11-[address] [facility] 00:00:00 [facility] breast (procedure) [code = 312029286] Future Scheduled 2020-11-[address] [facility] 00:00:00 malignant [facility] breast (procedure) [code = 829978818] Future Scheduled 2020-11-[address] [facility] 00:00:00 [facility] [code = 208182334] Future Scheduled 2020-06-23 Screening for [facility] Test 00:00:00 malignant neoplasm of cervix (procedure) [code = 026077945] Future Scheduled 2020-06-23 Scre[facility] for [facility] Test 00:00:00 malignant neoplasm of cervix (procedure) [code = 158730614] Future Scheduled 2020-06-23 [facility] 00:00:00 malignant neoplasm of cervix (procedure) [code = 716790464] Future Scheduled 2020-06-23 [facility] 00:00:00 malignant neoplasm of cervix (procedure) [code = 221990300] Future Scheduled 2020-06-23 [facility] 00:00:00 malignant neoplasm of cervix (procedure) [code = 950166438] Future Scheduled 2020-06-23 [facility] 00:00:00 malignant neoplasm of cervix (procedure) [code = 162750063] Future Scheduled 2020-06-23 [facility] 00:00:00 malignant neoplasm of cervix (procedure) [code = 584180570] Future Scheduled 2020-06-23 [facility] 00:00:00 malignant neoplasm of cervix (procedure) [code = 882296762] Future Scheduled 2020-06-23 [facility] 00:00:00 malignant neoplasm of cervix (procedure) [code = 546725038] Future Scheduled 2020-06-23 [facility] 00:00:00 malignant neoplasm of cervix (procedure) [code = 383775475] Future Scheduled 2020-06-23 [facility] 00:00:00 malignant neoplasm of cervix (procedure) [code = 607454721] Future Scheduled 2020-06-23 [facility] 00:[facility]:00 malignant neoplasm of cervix (procedure) [code = 437485946] Future Scheduled 2020-06-23 [facility] 00:00:00 malignant neoplasm of cervix (procedure) [code = 009041571] Future Scheduled 2020-06-23 [facility] 00:00:00 malignant neoplasm of cervix (procedure) [code = 431254020] Future Scheduled 2020-06-23 [facility] 00:00:00 malignant neoplasm of cervix (procedure) [code = 450247074] Future Scheduled 2019-03-[address] [facility] 00:00:00 [facility] colon (procedure) [code = 960171234] Future Scheduled 2019-03-[address] [facility] 00:00:00 [facility] colon (procedure) [code = 670515486] Future Scheduled 2019-03-[address] [facility] 00:00:00 malignant [facility] colon (procedure) [code = 528282397] Future Scheduled 2019-03-[address] [facility] 00:00:00 malignant [facility] colon (procedure) [code = 134522197] Future Scheduled 2019-03-[address] [facility] 00:00:00 malignant [facility] colon (procedure) [code = 543619084] Future Scheduled 2019-03-[address] [facility] 00:00:00 [facility] colon (procedure) [code = 288911081] Future Scheduled 2019-03-[address] [facility] 00:00:00 [facility] colon (procedure) [code = 493177841] Future Scheduled 2019-03-[address] [facility] 00:00:00 [facility] colon (procedure) [code = 469756087] Future Scheduled 2019-03-[address] [facility] 00:00:00 [facility] colon (procedure) [code = 189039496] Future Scheduled 2019-03-[address] [facility] 00:00:00 [facility] colon (procedure) [code = 976744803] Future Scheduled 2019-03-[address] [facility] 00:00:00 [facility] (procedure) [code = 587308401] Future Scheduled 2018-11-[address] [...] malignant neoplasm of colon (procedure) [code = 921089431] Future Scheduled 2017-04-21 Screening [facility] 00:00:00 malignant neoplasm of colon (procedure) [code = 452321096] Future Scheduled 2017-04-21 [facility]ening [facility] 00:00:00 malignant neoplasm of colon (procedure) [code = 779768246] Future Scheduled 2017-04-21 Scre[facility] 00:00:00 malignant neoplasm of colon (procedure) [code = 333833605] Future Scheduled 2017-04-21 [facility] 00:00:00 malignant neoplasm of colon (procedure) [code = 270873402] Future Scheduled 2017-04-21 [facility] 00:00:00 malignant neoplasm of colon (procedure) [code = 557868501] Future Scheduled 2017-04-21 [facility] 00:00:00 malignant neoplasm of colon (procedure) [code = 571970106] Future Scheduled 2017-04-21 [facility] 00:00:00 malignant neoplasm of colon (procedure) [code = 160142044] Future Scheduled 2017-04-21 [facility] 00:00:00 malignant neoplasm of colon (procedure) [code = 398560575] Future Scheduled 2017-04-21 [facility] 00:00:00 malignant neoplasm of colon (procedure) [code = 881372177] Future Scheduled 2017-04-21 [facility] 00:00:00 malignant neoplasm of colon (procedure) [code = 397234513] Future Scheduled 2017-04-21 [facility] 00:00:00 malignant neoplasm of colon (procedure) [code = 456073142] Future Scheduled 2017-04-21 [facility] 00:00:00 malignant neoplasm of colon (procedure) [code = 985956940] Future Scheduled 2017-04-21 [facility] 00:00:00 malignant neoplasm of colon (procedure) [code = 530305257] Future Scheduled 2017-04-21 [facility] 00:00:00 malignant neoplasm of colon (procedure) [code = 126222291] Future Scheduled 2016-01-[address] [...] - PPSV23 or PCV20)] Future Scheduled 2015-03-11 [facility]neum[facility]:00 0-64 Years (2 - PPSV23 [facility] Center if available, else PCV20) [code = Pneumococcal Vaccine: 0-64 Years (2 - PPSV23 if available, else PCV20)] Future Scheduled 2015-03-11 PNEUMOCOCCAL VACCINE [facility] [...] of 2 - PPSV23)] Future Scheduled 2015-03-11 Pneumococcal [facility]ine: [facility] 00:00:00 0-64 Years (2 - PPSV23 Medic [facility] Center if available, else PCV20) [code = Pneumococcal Vaccine: 0-64 Years (2 - PPSV23 if available, else PCV20)] Future Scheduled 2013 SHINGLES VACCINES ([address] [facility] 00:00:00 of 2) [code = SHINGLES Medic [facility] Center VACCINES (1 of 2)] Future Scheduled 2013 SHINGLES VACCINES ([address] [facility] 00:00:00 of 2) [code = SHINGLES Medic [facility] Center VACCINES (1 of 2)] Future Scheduled 2013 SHINGLES VACCINES ([address] [facility] Test 00:00:00 of 2) [code = SHINGLES [facility] Center VACCINES (1 of 2)] Future Scheduled 2013 SHINGLES VACCINES ([address] [facility] 00:00:00 of 2) [code = SHINGLES [facility] Center VACCINES (1 of 2)] Future Scheduled 2013 SHINGLES VACCINES ([address] [facility] Test 00:00:00 of 2) [code = SHINGLES [facility] Center VACCINES (1 of 2)] Future Scheduled 2013 SHINGLES VACCINES ([address] [facility] Test 00:00:00 of 2) [code = SHINGLES [facility] Center VACCINES (1 of 2)] Future Scheduled 2013 SHINGLES VACCINES ([address] [facility] Test 00:00:00 of 2) [code = SHINGLES [facility] Center VACCINES (1 of 2)] Future Scheduled 1993 [facility] 00:00:00 malignant neoplasm of cervix (procedure) [code = 824372918] Future Scheduled 1993 Scre[facility] for [facility] 00:00:00 malignant neoplasm of cervix (procedure) [code = 853611208] Future Scheduled 1993 Screening for [facility] 00:00:00 malignant neoplasm of cervix (procedure) [code = 229815642] Future Scheduled 1993 Scre[facility] 00:00:00 malignant neoplasm of cervix (procedure) [code = 184286737] Future Scheduled 1993 Scre[facility] for [facility] 00:00:00 malignant neoplasm of cervix (procedure) [code = 459316398] Future Scheduled 1993 Screening for [facility] 00:00:00 malignant neoplasm of cervix (procedure) [code = 826123121] Future Scheduled 1993 Screening for [facility] 00:00:00 malignant neoplasm of cervix (procedure) [code = 747285214] Future Scheduled 1993 Screening for [facility] 00:00:00 malignant neoplasm of cervix (procedure) [code = 346778396] Future Scheduled 1993 Scre[facility] for [facility] 00:00:00 malignant neoplasm of cervix (procedure) [code = 727060766] Future Scheduled 1993 Screening for [facility] 00:00:00 malignant neoplasm of cervix (procedure) [code = 509100242] Future Scheduled 1993 Screening for [facility] 00:00:00 malignant neoplasm of cervix (procedure) [code = 926719576] Future Scheduled 1993 Scre[facility] for [facility] 00:00:00 malignant neoplasm of cervix (procedure) [code = 681168351] Future Scheduled 1993 Screening for [facility] 00:00:00 malignant neoplasm of cervix (procedure) [code = 922749496] Future Scheduled 1993 Screening for [facility] 00:00:00 malignant neoplasm of cervix (procedure) [code = 897545224] Future Scheduled 1993 Screening for [facility] 00:00:00 malignant neoplasm of cervix (procedure) [code = 283234537] Future Scheduled [address] [facility] 00:00:00 [facility] cervix (procedure) [code = 991481174] Future Scheduled [address] [facility] 00:00:00 malignant neoplasm of [facility] cervix (procedure) [code = 430594062] Future Scheduled [address] [facility] 00:00:00 malignant neoplasm of [facility] cervix (procedure) [code = 243952369] Future Scheduled [address] [facility] 00:00:00 malignant [facility]oplasm of [facility] cervix (procedure) [code = 580823638] Future Scheduled [address] [facility] 00:00:00 malignant neoplasm of [facility] cervix (procedure) [code = 212463017] Future Scheduled [address] [facility] 00:00:00 malignant neoplasm of [facility] cervix (procedure) [code = 940284319] Future Scheduled [address] [facility] 00:00:00 malignant neoplasm of [facility] cervix (procedure) [code = 303231611] Future Scheduled 1982 DTAP/TDAP/TD [facility]ACCINES [facility] 00:[facility]:00 (1 - Tdap) [code = Medical C enter DTAP/TDAP/TD VACCINES (1 - Tdap)] Future Scheduled 1982 DTAP/TDAP/TD [facility]ACCINES [facility] 00:00:00 (1 - Tdap) [code = Medical C enter DTAP/TDAP/TD VACCINES (1 - Tdap)] Future Scheduled 1982 DTAP/TDAP/TD VACCINES [facility] 00:00:00 (1 - Tdap) [code = Medical C enter DTAP/TDAP/TD VACCINES (1 - Tdap)] Future Scheduled 1982 DTAP/TDAP/TD [facility]ACCINES [facility] 00:00:00 (1 - Tdap) [code = Medical C enter DTAP/TDAP/TD VACCINES (1 - Tdap)] Future Scheduled 1982 DTAP/TDAP/TD VACCINES [facility] 00:00:00 (1 - Tdap) [code = Medical C enter DTAP/TDAP/TD VACCINES (1 - Tdap)] Future Scheduled 1982 DTAP/TDAP/TD VACCINES [facility] 00:00:00 (1 - Tdap) [code = Medical C enter DTAP/TDAP/TD VACCINES (1 - Tdap)] Future Scheduled 1982 DTAP/TDAP/TD VACCINES [facility] 00:00:00 (1 - Tdap) [code = [...] 00:00:00 examination Medical Center (regime/therapy) [code = 842824923] Future Scheduled 1973 Urine screening for [facility] 00:00:00 protein (procedure) Medical Center [code = 692079019] Future Scheduled [address] DIAB[address] EYE EXAM [facility] 00:00:00 [code = DIABETIC EYE Medical Center EXAM] Future Scheduled [address] [facility] 00:[facility]:00 examination Medical Center (regime/therapy) [code = 630906142] Future Scheduled 1973 Urine screening for [facility] 00:00:00 protein (procedure) Medical Center [code = 805920013] Future Scheduled [address] EYE EXAM [facility] 00:00:00 [code = DIABETIC EYE Medical Center EXAM] Future Scheduled [address] [facility] 00:00:00 examination Medical Center (regime/therapy) [code = 137927133] Future Scheduled 1973 Urine screening for [facility] 00:00:00 protein (procedure) [facility] Center [code = 512565437] Future Scheduled [address] EYE EXAM [facility] 00:00:00 [code = DIABETIC EYE Medical Center EXAM] Future Scheduled [address] [facility] 00:00:00 examination [facility] Center (regime/therapy) [code = 309206465] Future Scheduled 1973 Urine screening for [facility] 00:00:00 protein (procedure) Medical Center [code = 006048854] Future Scheduled [address] DIAB[address] EYE EXAM [facility] 00:00:00 [code = DIABETIC EYE Medical Center EXAM] Future Scheduled [address] [facility] 00:00:00 examination [facility] Center (regime/therapy) [code = 329698756] Future Scheduled 1973 Urine screening for [facility] 00:00:00 protein (procedure) Medical Center [code = 079094708] Future Scheduled [address] DIAB[address] EYE EXAM [facility] 00:00:00 [code = DIABETIC EYE Medical Center EXAM] Future Scheduled [address] [facility] 00:00:00 examination Medical Center (regime/therapy) [code = 521513777] Future Scheduled 1973 Urine screening for [facility] 00:00:00 protein (procedure) Medical Center [code = 612572856] Future Scheduled [address] DIAB[address] EYE EXAM [facility] 00:00:00 [code = DIABETIC EYE Medical Center EXAM] Future Scheduled [address] [facility] 00:00:00 examination Medical Center (regime/therapy) [code = 425433477] Future Scheduled 1973 Urine screening for [facility] 00:00:00 protein (procedure) Medical Center [code = 685538939] Future Scheduled 1968 COVID-19 Vaccine (#1) [facility] 00:00:00 [code = COVID-19 Vaccine (#1)] Future Scheduled 1968 COVID-19 Vaccine (#1) [facility] 00:00:00 [code = COVID-19 Vaccine (#1)] Future Scheduled 1968 COVID-19 Vaccine (#1) [facility] 00:00:00 [code = COVID-19 Vaccine (#1)] Future Scheduled 1968 COVID-19 Vaccine (#1) [facility] 00:00:00 [code = COVID-19 Vaccine (#1)] Future Scheduled 1968 COVID-19 Vaccine (#1) [facility] 00:00:00 [code = COVID-19 Vaccine (#1)] Future Scheduled 1968 COVID-19 Vaccine (#1) [facility] 00:00:00 [code = COVID-19 Vaccine (#1)] Future Scheduled 1968 COVID-19 Vaccine (#1) [facility] 00:00:00 [code = COVID-19 Vaccine (#1)] Future Scheduled 1968 COVID-19 Vaccine (#1) [facility] 00:00:00 [code = COVID-19 Vaccine (#1)] Future Scheduled 1968 COVID-19 VACCINE (1) [facility] 00:00:00 [code = COVID-[address]ACCINE (1)] Future Scheduled 1968 COVID-19 VACCINE (1) [facility] 00:00:00 [code = COVID-[address] VACCINE (1)] Future Scheduled 1963 COVID-19 Vaccine (#1) [facility] 00:00:00 [code = COVID-19 Vaccine (#1)] Future Scheduled 1963 COVID-19 Vaccine (#1) [facility] 00:00:00 [code = COVID-19 Vaccine (#1)] Future Scheduled 1963 COVID-19 Vaccine (#1) [facility] 00:00:00 [code = COVID-19 Vaccine (#1)] Future Scheduled 1963 COVID-19 Vaccine (#1) [facility] 00:00:00 [code = COVID-19 Vaccine (#1)] Future Scheduled 1963 COVID-19 Vaccine (#1) [facility] 00:00:00 [code = COVID-19 Vaccine (#1)] Future Scheduled 1963 COVID-19 Vaccine (#1) [facility] 00:00:00 [code = COVID-19 Vaccine (#1)] Future Scheduled 1963 COVID-19 VACCINE (#1) [facility]:00 [code = COVID-[address] VACCINE (#1)] Future Scheduled 1963 COVID-19 VACCINE (#1) [facility] 00:00:00 [code = COVID-[address] VACCINE (#1)] Future Scheduled 1963 COVID-19 VACCINE (#1) [facility] 00:00:00 [code = COVID-[address] VACCINE (#1)] Future Scheduled 1963 COVID-19 VACCINE (#1) [facility] 00:00:00 [code = COVID-[address] VACCINE (#1)] Future Scheduled 1963 COVID-19 Vaccine (#1) [facility] 00:00:00 [code = COVID-19 Vaccine (#1)] Future Scheduled 1963 COVID-19 VACCINE (#1) [facility] 00:[facility]:00 [code = COVID-[address] VACCINE (#1)] Future Scheduled 1963 Fluoride Varnish [facility] 00:[facility]:00 = Fluoride Varnish] Future Scheduled [address] [facility] 00:[facility]:00 (combo) [code = CT Medical C enter Colonography (combo)] Future Scheduled [address] [facility] 00:00:00 malignant neoplasm of [facility] colon (procedure) [code = 908900577] Future Scheduled 1963 Sigmoidoscopy [code = [facility]] [facility] Cent[facility] Future Scheduled [address] [facility] 00:00:00 (combo) [code = CT Medical C enter Colonography (combo)] Future Scheduled [address] [facility] 00:00:00 malignant [facility] colon (procedure) [code = 627481836] Future Scheduled 1963 Sigmoidoscopy [facility]code [facility] S[facility]oscopy] Medical Dionnae r Future Scheduled [address] [facility] 00:00:00 (combo) [code = CT Medical C enter Colonography (combo)] Future Scheduled [address] [facility] 00:00:00 malignant [facility] colon (procedure) [code = 730348814] Future Scheduled 1963 Sigmoidoscopy [facility]code [facility] S[facility]oidoscopy] Medical Dionnae r Future Scheduled [address] [facility] 00:00:00 (combo) [code = CT Medical C enter Colonography (combo)] Future Scheduled [address] [facility] 00:00:00 malignant neoplasm of [facility] colon (procedure) [code = 561601477] Future Scheduled [address] [facility] 00:00:00 malignant neoplasm of [facility] colon (procedure) [code = 968039901] Future Scheduled 1963 Sigmoidoscopy [facility]code [facility] S[facility]oscopy] Medical Hu r Future Scheduled [address] [facility] 00:00:00 (combo) [code = CT Medical C enter Colonography (combo)] Future Scheduled [address] [facility] 00:00:00 malignant neoplasm of [facility] colon (procedure) [code = 822292791] Future Scheduled [address] [facility] 00:00:00 malignant neoplasm of [facility] colon (procedure) [code = 869486889] Future Scheduled 1963 Sigmoidoscopy [facility]code [facility] S[facility]oscopy] Medical Dionnae r Future Scheduled [address] [facility] 00:00:00 (combo) [code = CT Medical C enter Colonography (combo)] Future Scheduled [address] [facility] 00:00:00 malignant neoplasm [facility] colon (procedure) [code = 345561407] Future Scheduled [address] [facility] 00:00:00 malignant neoplasm of [facility] colon (procedure) [code = 797925023] Future Scheduled 1963 Sigmoidoscopy [facility]code [facility] S[facility]oscopy] Medical Dionnae r Future Scheduled [address] [facility] 00:00:00 (combo) [code = CT Medical C enter Colonography (combo)] Future Scheduled [address] [facility] 00:00:00 malignant neoplasm of [facility] colon (procedure) [code = 859586573] Future Scheduled [address] [facility] 00:00:00 malignant neoplasm of [facility] colon (procedure) [code = 593917795] Future Scheduled 1963 Sigmoidoscopy [facility]code [facility] Sigm[facility]oscopy] Medical Hu r Encounters Start End Encounter Admission Attending Care Care Encounter Source Date/Time Date/Time Type Type Clinicians Facility Department ID 2022-09-25 Outpatient [facility] [id number] [place] 14:43:54 [id number] [facility] 2022-06-14 Emergency [facility] [id number] DINESH - 11:52:36 [facility] ent 2022-05-31 Outpatient [facility] [id number] [place] 11:48:15 [id number] [facility] 2022-03-18 Outpatient [facility] [id number] [facility] 06:12:06 jordan, 1224 [facility] [place] 2022-03-02 Inpatient [facility] CVA [id number] [facility] 13:25:00 jordan, 1208 [facility] [place] 2022-03-01 Outpatient 3 [id number] [facility] REF [id number] [facility] 11:34:45 1207 [facility] [place] 2022-02-15 Outpatient 3 [id number] [facility] REF [id number] [facility] 15:07:48 1123 [facility] [place] 2022-02-13 Outpatient [facility] [id number] [place] 15:10:15 Health 2022-01-31 Outpatient [facility] [id number] [place] 10:40:55 [id number] Health 2022-01-26 Outpatient [facility] [id number] [place] 16:42:22 [id number] [facility] 2021-12-06 Outpatient 3 [place] [facility] CVA [id number] [facility] 13:41:36 hez, 0913 [place] [place] 2021-12-02 Outpatient 3 [id number] ENC[facility] CVA [id number] [facility] 11:23:23 0909 [facility] [place] 2021-11-30 Outpatient 3 [id number] E[facility] CVA [id number] [facility] 08:22:36 0907 [facility] [place] 2021-11-29 Outpatient 3 [id number] ENC[facility] REF [id number] [facility] 14:03:26 0906 [facility] [place] 2021-09-05 Outpatient EL PALLISTER, [facility] Surgery [id number] SLE 08:47:40 RIAZ 2021-08-30 Outpatient 3 [id number] [facility] [place] [id number] [facility] 17:17:47 [facility] [place] 2021-08-15 Outpatient 3 [id number] ENCSL REF [id number] [facility] 11:40:53 [facility] [place] 2021-04-22 Outpatient ANANTH [facility] [id number] [place] 15:16:49 [facility] 2021-04-20 Outpatient Rey, STLMLC STLMLC Common 12:32:19 [place] [id number] [facility] 2021-04-20 Outpatient Rey, STLMLC STLMLC Common 12:22:07 [place] [id number] [facility] 2021-04-20 Outpatient Rey, STLMLC STLMLC Common 12:18:27 [place] [id number] [facility] 2021-04-20 Outpatient Rey, STLMLC STLMLC [id number] Common 12:05:36 Jose [id number] [facility] 2021-04-20 Outpatient Rey, STLMLC STLMLC [id number] Common 11:56:16 Jose [id number] [facility] 2021-04-20 Outpatient Rey, STLMLC STLMLC [id number] Common 11:53:33 Jose [id number] [facility] 2021-04-20 Outpatient Rey, STLMLC STLMLC [id number] Common 11:48:09 Jose [id number] [facility] 2021-04-20 Outpatient Rey, STLMLC STLMLC [id number] Common 11:46:26 Jose [id number] [facility] 2021-04-20 Outpatient Rey, STLMLC STLMLC [id number] Common 11:42:27 Jose 90908 [facility] 2021-04-20 Outpatient Rey, STLMLC STLMLC [id number] Common 11:40:16 Jose 01091 [facility] 2021-04-20 Outpatient Rey, STLMLC STLMLC [id number] Common 11:38:56 Jose [id number] [facility] 2021-04-20 Outpatient Rey, STLMLC STLMLC [id number] Common 11:17:01 Jose 57023 [facility] 2021-04-20 Outpatient Rey, STLMLC STLMLC [id number] Common 11:16:49 Jose 74450 [facility] 2021-04-20 Outpatient Rey, STLMLC STLMLC [id number] Common 11:14:02 Jose 41320 [facility] 2021-01-01 Inpatient UR ISAAC MEEHAN [facility] [id number] [facility] 20:20:01 Med 2022-07-15 2022-07-15 Emergency [facility] [id number] Memoria 16:38:00 21:14:[address] 2022-07-15 2022-07-15 Emergency [facility] [id number] Memoria 16:38:00 21:14:00 [place] [facility] 2022-07-15 2022-07-15 Emergency [facility] [id number] Memoria 16:38:00 21:14:[address] 2022-07-15 2022-07-15 Emergency E FADOWOLE, MHBL MHBL [id number] MHBL 11:38:00 16:14:00 KASEY 2022-07-15 2022-07-15 Outpatient Fadowole, MHPL MHPL [id number] 11:38:00 16:14:00 [facility] 2022-07-15 2022-07-15 Outpatient Fadowole, MHPL MHPL [id number] 11:38:00 16:14:00 [facility] 2022-06-14 2022-06-15 Emergency Pradeep Bermeo 1.2.840.1 [id number] Methodi 11:40:00 19:30:00 [address]ha [address]57.1.[address] 3.430.2.7 Hospit a .3.203637 l .8 2022-06-14 2022-06-15 Emergency Pradeep Bermeo 1.2.840.1 [id number] Methodi 11:40:00 19:30:00 [address] 3.430.2.7 Hospit a .3.297240 l .8 2022-06-14 2022-06-14 Travel 1.2.840.1 1.2.398.393 6021 [id number] Methodi 00:00:00 00:00:[address] 3.430.2.7 0.2.7.3.698 Ho spita .3.269148 084.8 l .8 2022-06-14 2022-06-14 Travel 1.2.840.1 1.2.959.154 [id number] Methodi 00:00:00 00:00:[address] 3.430.2.7 0.2.7.3.698 Ho spita .3.164305 084.8 l .8 2022-06-06 2022-06-07 Emergency MHIE [place] [id number] Memoria 20:39:00 01:25:00 [place] [facility] 2022-06-06 2022-06-07 Emergency IE [place] [id number] Memoria 20:39:00 01:25:00 [place] [facility] 2022-06-06 2022-06-07 Emergency [facility] [id number] Memoria 20:39:00 01:25:00 [place] [facility] 2022-06-06 2022-06-06 Emergency E AZNAUROVA-A MHBL MHBL [id number] MHBL 15:39:00 20:25:00 NDECLARA LUCAS 2022-06-06 2022-06-06 Outpatient Aznaurova-A MHPL MHPL [id number] 15:39:00 20:25:00 nderson, 00 [facility] 2022-06-06 2022-06-06 Outpatient Aznaurova-A MHPL MHPL [id number] 15:39:00 20:25:00 nderson, 00 Marva 2022-06-06 2022-06-06 Outpatient ANANTH [facility] [id number] UT 10:00:00 10:00:00 [facility] 2022-03-28 2022-03-29 Emergency MHIE [place] [id number] Memoria 23:55:59 07:03:00 [place] [facility] 2022-03-28 2022-03-29 Emergency MHIE [place] [id number] Memoria 23:55:59 07:03:00 [place] [facility] 2022-03-28 2022-03-29 Emergency MHIE [place] [id number] Memoria 23:55:59 07:03:00 [place] [facility] 2022-03-28 2022-03-29 Outpatient Juarez Morales MHPL MHPL [id number] 17:55:59 01:03:00 Q 2022-03-28 2022-03-29 Outpatient Juarez Morales MHPL MHPL [id number] 17:55:59 01:03:00 Q 2022-03-28 2022-03-29 Emergency E JUAREZ MORALES MHBL MHBL [id number] MHBL 17:55:00 01:03:00 2022-02-23 2022-03-14 Inpatient 3 [facility] ENCPL CVA [id number] Encompa 15:39:00 13:20:00 hez, 1201 ss [facility] 2022-02-28 2022-03-02 Observatio MHIE [place] [id number] Memoria 18:08:23 19:05:00 n [place] [facility] 2022-02-28 2022-03-02 Observatio [facility] [id number] Memoria 18:08:23 19:05:00 n [place] 00 [facility] 2022-02-28 2022-03-02 Observatio IE [place] [id number] Memoria 18:08:23 19:05:00 n [place] 00 [facility] 2022-02-28 2022-03-02 Outpatient E SADQUINCY, MHBL MED [id number] MHBL 15:08:00 13:05:00 DIMITRY 2022-02-28 2022-03-02 Outpatient Sadhu, MHPL MHPL [id number] 12:08:23 13:05:00 Dimitry 00 2022-02-28 2022-03-02 Outpatient Sadhu, MHPL MHPL [id number] 12:08:23 13:05:00 Dimitry 2022-02-28 2022-03-02 Outpatient Sadhu, MHPL MHPL [id number] 12:08:23 13:05:00 Dimitry 2022-02-28 2022-03-02 Outpatient Sadhu, MHPL MHPL [id number] 12:08:23 13:05:00 Dimitry 2022-02-15 2022-02-15 Outpatient BRIAN [facility] [id number] UT 09:00:00 09:00:00 [facility] 2022-02-06 2022-02-06 Telephone Jann, 1.2.840.1 [id number] Methodi 00:00:00 00:00:00 Gallito 03705.1.1 571 [facility]-i 3.430.2.7 Hosp josh .3.056177 l .8 2022-02-06 2022-02-06 Telephone Jann, 1.2.840.1 [id number] Methodi 00:00:00 00:00:00 Gallito 73030.1.1 571 [facility]-Hsi 3.430.2.7 Hosp josh .3.921200 l .8 2022-01-31 2022-01-31 Office Ananth [facility] 6410 1.2.132.765 [id number] [place] 10:30:00 12:02:52 Visit Jose CASTELLANOSNIN 350.1.13.58 Health 9.2.7.2.686 [id number] 8 2021-12-07 2021-12-29 Inpatient 3 [facility] ENCPL CVA [id number] Encompa 19:35:00 16:20:00 jordan, 0914 [facility] [place] 2021-12-02 2021-12-02 Outpatient ANANTH [facility] [id number] [place] 10:30:00 10:30:00 [facility] 2021-11-21 2021-11-21 Outpatient GC_BAHC_Tod PRIV PRIV [id number] [facility] 00:00:00 00:00:00 d_J [id number] Medica l 2021-11-16 2021-11-16 Outpatient GC_BAHC_Tod PRIV PRIV 243 [id number] [facility] 00:00:00 00:00:00 d_J [id number] Medica l 2021-11-11 2021-11-11 Outpatient GC_BAHC_Tod PRIV PRIV 243 [id number] [facility] 00:00:00 00:00:00 d_J [id number] Medica l 2021-11-01 2021-11-01 Outpatient GC_BAHC_Tod PRIV PRIV 243 [id number] [facility] 00:00:00 00:00:00 d_J [id number] Medica l 2021-11-01 2021-11-01 Estelle [facility]IV [facility] [id number] [facility] 00:00:00 00:00:00 RAÚL Schneider: Health - Med ical [address] [address] , Ph. 2021-11-01 2021-11-01 Outpatient Wyatt, PRIV PRIV [id number] 00:00:00 00:00:00 Estelle [id number] 2021-10-28 2021-10-28 Outpatient GC_BAHC_Tod PRIV PRIV 243 [id number] [facility] 00:00:00 00:00:00 d_J [id number] Medica l 2021-10-27 2021-10-27 Outpatient GC_BAHC_Tod PRIV PRIV 243 [id number] [facility] 00:00:00 00:00:00 d_J [id number] Medica l 2021-10-25 2021-10-25 Outpatient GC_BAHC_Tod PRIV PRIV 243 [id number] [facility] 00:00:00 00:00:00 d_J [id number] Medica l 2021-10-25 2021-10-25 Estelle [facility]IV [facility] [id number] [facility] 00:00:00 00:00:00 RAÚL Schneider: Health - Med ical [address] [place] [address] , Ph. 2021-10-25 2021-10-25 Outpatient Wyatt PRIV PRIV [id number] 00:00:00 00:00:00 Estelle [id number] 2021-10-21 2021-10-21 Outpatient GC_BAHC_Tod PRIV PRIV [id number] [facility] 00:00:00 00:00:00 d_J [id number] Medica l 2021-10-20 2021-10-20 Outpatient GC_BAHC_Tod PRIV PRIV [id number] [facility] 00:00:00 00:00:00 d_J [id number] Medica l 2021-10-20 2021-10-20 Sergio Up PRIV [facility] [id number] [facility] 00:00:00 00:00:00 Alfredo [facility] - Med ical MD: [address] [place] [address] , Ph. 2021-10-20 2021-10-20 Outpatient Alfredo PRIV PRIV [id number] 00:00:00 00:00:00 Sergio Up [id number] 2021-10-18 2021-10-18 Outpatient GC_BAHC_Tod PRIV PRIV 243 [id number] [facility] 03:56:00 03:56:00 d_Ricky [id number] Medica l 2021-10-18 2021-10-18 [facility] [id number] [facility] 00:00:00 00:00:00 RAÚL Schneider: Health - Med ical [address] [place] [address] , Ph. 2021-10-18 2021-10-18 Outpatient Wyatt PRIV PRIV [id number] 00:00:00 00:00:00 Estelle [id number]-[id number] 2021-10-16 2021-10-16 Outpatient GC_BAHC_Tod PRIV PRIV [id number] [facility] 04:50:00 04:50:00 d_J [id number] Medica l 2021-10-14 2021-10-14 Outpatient GC_BAHC_Tod PRIV PRIV 243 [id number] [facility] 07:48:00 07:48:00 d_J [id number] Medica l 2021-10-14 2021-10-14 Estelle [facility]IV [facility] [id number] [facility] 00:00:00 00:00:00 Wyatt, PA: Health - Med ical [address] [address] , Ph. 2021-10-14 2021-10-14 Outpatient Wyatt PRIV PRIV [id number] 00:00:00 00:00:00 Estelle [id number] 2021-10-12 2021-10-12 Outpatient GC_BAHC_Tod PRIV PRIV [id number] [facility] 04:19:00 04:19:00 d_J [id number] Medica l 2021-10-11 2021-10-11 Outpatient GC_BAHC_Tod PRIV PRIV [id number] [facility] 10:06:00 10:06:00 d_J [id number] Medica l 2021-10-11 2021-10-11 Estelle PRIV [facility] [id number] [facility] 00:00:00 00:00:00 RAÚL Schneider: Health - Med ical [address] [place] [address] , Ph. 2021-10-11 2021-10-11 Outpatient Wyatt PRIV PRIV [id number] 00:00:00 00:00:00 Estelle [id number] [id number] 2021-10-07 2021-10-07 Outpatient GC_BAHC_Tod PRIV PRIV [id number] [facility] 04:03:00 04:03:00 d_J [id number] Medica l 2021-10-07 2021-10-07 Estelle [facility]IV [facility] [id number] [facility] 00:00:00 00:00:00 RAÚL Schneider: Health - Med ical [address] [place] [address] , Ph. 2021-10-04 2021-10-04 Outpatient GC_BAHC_Tod PRIV PRIV 243 [id number] [facility] 06:03:00 06:03:00 d_J [id number] Medica l 2021-10-04 2021-10-04 Outpatient Wyatt, PRIV PRIV [id number] 00:00:00 00:00:00 Estelle [id number] 2897-07-12 2021-10-04 Estelle HODGSON [place] [facility] [id number] [facility] 00:00:00 00:00:00 RAÚL Schneider: Health - Med ical [address] [place] [address] , Ph. 2021-09-29 2021-09-29 Outpatient NIMO SLE SLE [id number] SLEH 00:00:00 00:00:00 ARUN 2021-09-27 2021-09-27 Outpatient GC_BAHC_Tod PRIV PRIV [id number] [facility] 01:19:00 01:19:00 d_J [id number] Medica l 2021-08-19 2021-09-24 Inpatient UR PABLO, [facility] Neuro ICU [id number] SLE 13:12:00 16:11:00 BANNERChaz 2021-08-19 2021-09-24 [facility] Ramin De Leon [facility] [id number] 13:12:00 16:11:00 [facility] Khannan Kameshvaran Bartsch, Heather Renee 2021-09-19 2021-09-19 [facility] [id number] 23:59:00 23:59:00 Encounter [facility] 2021-09-19 2021-09-19 Outpatient SLE SLEH [id number] [facility]H 00:00:00 23:59:00 2021-09-16 2021-09-16 Outpatient ZANE NIMOJAXON SLE [id number] [facility]H 00:00:00 00:00:00 ARUN 2021-09-15 2021-09-15 Out[facility] [id number] [facility] 00:00:00 00:00:00 ARUN 2021-09-12 2021-09-12 Anesthesia Kiarra Rangel [facility] [id number] 11:54:00 12:55:00 Event Meet Chen BachSwathi [facility] 2021-09-12 2021-09-12 Surgery Adalgisa, [facility] [id number] 10:00:00 11:00:00 [facility] 2021-09-09 2021-09-09 Anesthesia Carrilloisabelswati Jacques Hiren [facility] [id number] 13:15:51 13:15:51 Event Edwarddavid Bronson Aimee [facility] 2021-08-20 2021-08-20 Orders [facility] [id number] 00:00:00 00:00:00 Only [facility] 2021-08-11 2021-08-19 Hospital [facility] [id number] 01:30:00 12:30:00 Encounter [facility] 2021-08-11 2021-08-19 Inpatient [facility] [id number] [facility] 01:30:00 12:30:00 Med 2021-08-11 2021-08-11 Travel [facility] [id number] [facility] 00:00:00 00:00:00 [facility] 2021-08-02 2021-08-02 Office ANNIE Magallanes 6410 1.2.752.483 [id number] [place] 10:00:00 12:05:15 Visit Jose NEELY 350.1.13.58 [facility] 9.2.7.2.686 [id number] 2021-06-30 2021-06-30 (TEL) [facility] [id number] mmon 00:00:00 00:00:00 [facility] 2021-05-18 2021-05-18 Telephone ANNIE Magallanes 6410 1.2.840.114 13 [id number] [place] 00:00:00 00:00:00 Jose GOMEZ 350.1.13.58 [facility] 9.2.7.2.686 [id number] 2021-01-25 2021-01-25 [facility] [id number] 00:00:00 00:00:00 ion [facility] 2021-01-24 2021-01-[address] [facility] [id number] 00:00:00 00:00:00 [facility] 2021-01-24 2021-01-24 Abstract [facility] [id number] 00:00:00 00:00:00 [facility] 2021-01-14 2021-01-14 [facility] [id number] 00:00:00 00:00:00 [facility] 2020-11-15 2020-11-15 Orders Paula [facility] [id number] 00:00:00 00:00:00 Only [facility] 2020-03-10 2020-03-11 Outpt Diag nullFlavo [facility] [id number] Memoria 22:56:00 05:59:00 Services r Outpatient [address] [facility] 2020-03-10 2020-03-11 Outpt Diag nullFlavo [facility] [id number] Memoria 22:56:00 05:59:00 Services r Outpatient [address] [facility] 2020-03-10 2020-03-11 Outpt Diag nullFlavo [facility] [id number] Memoria 22:56:00 05:59:00 Services r Outpatient [address] [facility] 2020-03-10 2020-03-10 Outpatient Palvadi, MHOIP MHOIP [id number] 16:56:00 23:59:00 Vilma 00 2020-03-10 2020-03-10 Outpatient Palvadi, MHOIP MHOIP [id number] 16:56:00 23:59:00 Vilma 00 2020-02-25 2020-02-25 Outpatient PALVA, [facility] [id number] [place] 00:00:00 00:00:00 VILMA 977 Method i 2020-02-25 2020-02-25 Outpatient PALVAEDSON, [facility] [id number] [place] 00:00:00 00:00:00 VILMA 979 Method i 2020-01-30 2020-01-30 Orders Doctor WYNN 1.2.840.114 [id number] 00:00:00 00:00:00 Only Unassigned, TIMOTHY 350.1.13.10 Tancred [facility] 4.2.7.2.686 [id number] 2020-01-30 2020-01-30 Orders Doctor WYNN 1.2.840.114 [id number] [facility] 00:00:00 00:00:00 Only Unassigned, TIMOTHY 350.1.13.10 ity of [place] [facility] 4.2.7.2.686 Red as [id number] [address] 2020-01-29 2020-01-29 Telephone [facility] 1.2.840.114 [id number] 00:00:00 00:00:00 [place] 350.1.13.10 [place] 4.2.7.2.686 Professio [id number] [address] 2020-01-29 2020-01-29 Telephone [facility] 1.2.840.114 [id number] [facility] 00:00:00 00:00:00 [place] 350.1.13.10 ity of [place].7.2.[place] Profess[place] [id number] [place] dic[address] 2020-01-22 2020-01-22 Office BRISEIDA Osullivan 1.2.840.114 [id number] 10:05:54 11:52:05 Visit Daiana Valerio AMBULATOR 350.1.13.21 Y 0.2.7.2.686 [id number] 2020-01-02 2020-01-02 Outpatient [facility] [id number] Common 00:00:00 00:00:00 Spirit [facility] 2019-12-31 2019-12-31 [facility] [id number] Common 00:00:00 00:00:00 [facility] 2019-12-25 2019-12-25 Office BRISEIDA Osullivan 1.2.840.114 [id number] 09:47:44 11:32:45 Visit Daiana Valerio AMBULATOR 350.1.13.21 Y 0.2.7.2.686 [id number] 2019-11-27 2019-11-27 Office BRISEIDA Osullivan 1.2.840.114 [id number] 08:35:10 09:57:10 Visit Daiana Valerio AMBULATOR 350.1.13.21 Y 0.2.7.2.686 [id number] 2019-11-24 2019-11-24 Outpatient Liya [facility] [id number] Common 09:17:00 09:17:00 t [facility] it [facility] 2019-11-13 2019-11-13 Office Shi [facility] 1.2.840.114 [id number] 15:52:21 16:41:09 Visit Daiana Valerio AMBULATOR 350.1.13.21 Y 0.2.7.2.686 [id number] 600 2019-11-12 2019-11-12 Outpatient Liya [facility] [id number] Common 09:30:00 09:30:00 [facility] 2019-11-04 2019-11-04 Outpatient EL SLE SLEH [id number] [facility] 00:00:00 00:00:00 2019-11-04 2019-11-04 Outpatient EL SLEH SLEH [id number] [facility]H 00:00:00 00:00:00 2019-10-07 2019-10-07 Outpatient EL SLEH SLEH [id number] [facility] 00:00:00 00:00:00 2019-10-02 2019-10-02 [facility] [id number] Common 16:22:00 16:22:[address] [facility] 2019-10-02 2019-10-02 Outpatient [facility] [id number] Common 10:15:00 10:15:[address] [place] [address] [facility] 2019-10-02 2019-10-02 Outpatient [facility] [id number] Common 10:00:00 10:00:[address] [address] [facility] 2019-09-02 2019-09-02 Outpatient SLEH SLEH [id number] SLEH 00:00:00 00:00:00 [id number] 2019-09-02 2019-09-02 Outpatient EL SLEH SLEH [id number] [facility]H 00:00:00 00:00:00 2019-07-01 2019-07-01 Outpatient [facility] [id number] Common 11:45:00 11:45:00 [place] [address] [facility] 2019-05-23 2019-05-23 Orders Doctor WYNN 1.2.840.114 [id number] Univers 00:00:00 00:00:00 Only Unassigned, TIMOTHY 350.1.13.10 ity of [place] [facility] 4.2.7.2.686 Red as [id number] [place] [address] [address] 2019-05-22 2019-05-22 [place] [facility] 1.2.840.114 [id number] Univers 00:00:00 00:00:00 [place] 350.1.13.10 ity [place] Profess[place] [id number] Oh dical nal 2 Branch [facility] 2019-05-12 2019-05-12 Orders Doctor WYNN 1.2.840.114 [id number] Univers 00:00:00 00:00:00 Only Unassigned, TIMOTHY 350.1.13.10 ity of [place] [facility] 4.2.7.2.686 Red as [id number] [facility] [address] 2019-04-10 2019-04-10 Outpatient [facility] [id number] Common 11:54:00 11:54:00 t [place] [address] Sp[address] [facility] 2019-03-31 2019-03-31 Outpatient Liya [facility] [id number] Common 11:20:00 11:20:[address] [address] [facility] 2019-03-27 2019-03-27 Outpatient Liya [facility] [id number] Common 10:30:00 10:30:[address] [address] [facility] 2019-03-12 2019-03-12 Outpatient Liya [place] 27 [id number] Common 09:45:00 09:45:[address] [address] [facility] Results Test Description Test Time Test Comments Results Result Comments Source RADRPT 2022-07-15 18:15:46 Test Item Value Reference Range Interpretation Comme nts RADRPT (test code = RADRPT) PROCEDURE INFORMATION: Exam: XR Left Ti fransisco and Fibula Exam date and time: 07/15/2022 12:07 PM Age: 57 years old Clinical indication: /s/p crush injury TECHNIQUE: Imaging protocol: Radiologic exam of the left tibia and fibula. Views: 2 views. COMPARISON: No relevant prior studies available. FINDINGS: Bones/joints: Anatomic alignment. No acute fracture or dislocation. Soft tissues: Non-specific soft tissue swelling overlying the mid anterior tibia. IMPRESSION: 1. No acute fracture. 2. Non-specific soft tissue swelling overlying the mid anterior tibia. Derrick López MD On 07/15/2022 13:14:39; [id number] [id number] 18:15:46 Test Item Value Reference Range Interpretation Comments RADRPT (test code = PROCEDURE INFORMATION: RADRPT) Exam: XR Left Tibia and Fibula Exam date and time: 07/15/2022 12:07 PM Age: 57 years old Clinical indication: /s/p crush injury TECHNIQUE: Imaging protocol: Radiologic exam of the left tibia and fibula. Views: 2 views. COMPARISON: No relevant prior studies available. FINDINGS: Bones/joints: Anatomic alignment. No acute fracture or dislocation. Soft tissues: Non-specific soft tissue swelling overlying the mid anterior tibia. IMPRESSION: 1. No acute fracture. 2. Non-specific soft tissue swelling overlying the mid anterior tibia. Derrick López MD On 07/15/2022 13:14:39; [id number] [facility] [id number] 18:15:46 Test Item Value Reference Range Interpretation Comments RADRPT (test code = PROCEDURE INFORMATION: RADRPT) Exam: XR Left Tibia and Fibula Exam date and time: 07/15/2022 12:07 PM Age: 57 years old Clinical indication: /s/p crush injury TECHNIQUE: Imaging protocol: Radiologic exam of the left tibia and fibula. Views: 2 views. COMPARISON: No relevant prior studies available. FINDINGS: Bones/joints: Anatomic alignment. No acute fracture or dislocation. Soft tissues: Non-specific soft tissue swelling overlying the mid anterior tibia. IMPRESSION: 1. No acute fracture. 2. Non-specific soft tissue swelling overlying the mid anterior tibia. Derrick López MD On 07/15/2022 13:14:39; [id number] [facility] [id number] 18:15:46 Test Item Value Reference Range Interpretation Comments RADRPT (test code = PROCEDURE INFORMATION: RADRPT) Exam: XR Left Tibia and Fibula Exam date and time: 07/15/2022 12:07 PM Age: 57 years old Clinical indication: /s/p crush injury TECHNIQUE: Imaging protocol: Radiologic exam of the left tibia and fibula. Views: 2 views. COMPARISON: No relevant prior studies available. FINDINGS: Bones/joints: Anatomic alignment. No acute fracture or dislocation. Soft tissues: Non-specific soft tissue swelling overlying the mid anterior tibia. IMPRESSION: 1. No acute fracture. 2. Non-specific soft tissue swelling overlying the mid anterior tibia. Derrick López MD On 07/15/2022 13:14:39; [id number] [facility] 12 [id number] 03:10:05 Test Item Value Reference Range Interpretation Comments Ventricular rate (test 59 code = 253) Atrial rate (test code = 59 255) KS interval (test code = 158 266) QRSD interval (test code 90 = 260) QT interval (test code = 452 264) QTC interval (test code 447 = 265) P axis 1 (test code = 33 267) QRS axis 1 (test code = 6 268) T wave axis (test code = 32 270) EKG impression (test Poor data code = 273) quality-Sinus bradycardia-Low voltage QRS-Borderline ECG-No previous ECGs available-Electronica lly Signed By Angela Alaniz MD ([id number]) on 06/14/2022 10:10:04 PM [facility] 12 [id number] 03:10:05 Test Item Value Reference Range Interpretation Comments Ventricular rate (test 59 code = 253) Atrial rate (test code = 59 255) KS interval (test code = 158 266) QRSD interval (test code 90 = 260) QT interval (test code = 452 264) QTC interval (test code 447 = 265) P axis 1 (test code = 33 267) QRS axis 1 (test code = 6 268) T wave axis (test code = 32 270) EKG impression (test Poor data code = 273) quality-Sinus bradycardia-Low voltage QRS-Borderline ECG-No previous ECGs available-Electronica lly Signed By Angela Alaniz MD ([id number]) on 06/14/2022 10:10:04 PM [id number] 22:44:17 Test Item Value Reference Range Interpretation Comments RADRPT (test code PROCEDURE INFORMATION: = RADRPT) Exam: XR Chest Exam date and time: 06/06/2022 4:42 PM Age: 57 years old Clinical indication: /weakness TECHNIQUE: Imaging protocol: Radiologic exam of the chest. Views: 1 view. COMPARISON: No relevant prior studies available. FINDINGS: Lungs: Normal lung volumes. No consolidation. A right IJ dialysis catheter is present with tip in the region of the right atrium.Pleural spaces: Unremarkable. No pleural effusion. No pneumothorax. Heart/Mediastinum: Heart size is within normal limits. Vasculature is unremarkable. Bones/joints: There is an old fracture involving the proximal right humerus. IMPRESSION: No acute cardiopulmonary findings. Fabricio Wiggins MD On 06/06/2022 17:42:53; [id number] [facility] [place], [place]SallvptNJHKMI7875-76-34 22:44:17 Test Item Value Reference Range Interpretation Comments RADRPT (test code PROCEDURE INFORMATION: = RADRPT) Exam: XR Chest Exam date and time: 06/06/2022 4:42 PM Age: 57 years old Clinical indication: /weakness TECHNIQUE: Imaging protocol: Radiologic exam of the chest. Views: 1 view. COMPARISON: No relevant prior studies available. FINDINGS: Lungs: Normal lung volumes. No consolidation. A right IJ dialysis catheter is present with tip in the region of the right atrium.Pleural spaces: Unremarkable. No pleural effusion. No pneumothorax. Heart/Mediastinum: Heart size is within normal limits. Vasculature is unremarkable. Bones/joints: There is an old fracture involving the proximal right humerus. IMPRESSION: No acute cardiopulmonary findings. Fabricio Wiggins MD On 06/06/2022 17:42:53; [id number] [facility] [place], TXUubpvmgZIASDL9181-83-45 22:44:17 Test Item Value Reference Range Interpretation Comments RADRPT (test code PROCEDURE INFORMATION: = RADRPT) Exam: XR Chest Exam date and time: 06/06/2022 4:42 PM Age: 57 years old Clinical indication: /weakness TECHNIQUE: Imaging protocol: Radiologic exam of the chest. Views: 1 view. COMPARISON: No relevant prior studies available. FINDINGS: Lungs: Normal lung volumes. No consolidation. A right IJ dialysis catheter is present with tip in the region of the right atrium.Pleural spaces: Unremarkable. No pleural effusion. No pneumothorax. Heart/Mediastinum: Heart size is within normal limits. Vasculature is unremarkable. Bones/joints: There is an old fracture involving the proximal right humerus. IMPRESSION: No acute cardiopulmonary findings. Fabricio Wiggins MD On 06/06/2022 17:42:53; [id number] [id number] 22:44:17 Test Item Value Reference Range Interpretation Comments RADRPT (test code PROCEDURE INFORMATION: = RADRPT) Exam: XR Chest Exam date and time: 06/06/2022 4:42 PM Age: 57 years old Clinical indication: /weakness TECHNIQUE: Imaging protocol: Radiologic exam of the chest. Views: 1 view. COMPARISON: No relevant prior studies available. FINDINGS: Lungs: Normal lung volumes. No consolidation. A right IJ dialysis catheter is present with tip in the region of the right atrium.Pleural spaces: Unremarkable. No pleural effusion. No pneumothorax. Heart/Mediastinum: Heart size is within normal limits. Vasculature is unremarkable. Bones/joints: There is an old fracture involving the proximal right humerus. IMPRESSION: No acute cardiopulmonary findings. Fabricio Wiggins MD On 06/06/2022 17:42:53; [id number] [place] [address]-03-14 22:03:00 Test Item Value Reference Range Interpretation Comments HS Troponin I 1 Hr (test code = HS 20 Troponin I 1 Hr) [place] [address]-03-14 22:03:00 Test Item Value Reference Range Interpretation Comments HS Troponin I 0 to 1 Hour Delta (test -4 code = HS Troponin I 0 to 1 Hour Delta) [place] [address]-03-14 22:03:00 Test Item Value Reference Range Interpretation Comments HS Troponin I 1 Hr (test code = HS 20 Troponin I 1 Hr) [address]03-14 22:03:00 Test Item Value Reference Range Interpretation Comments HS Troponin I 0 to 1 Hour Delta (test -4 code = HS Troponin I 0 to 1 Hour Delta) [address]03-14 22:03:00 Test Item Value Reference Range Interpretation Comments HS Troponin I 1 Hr (test code = HS 20 Troponin I 1 Hr) [place] [address]-03-14 22:03:00 Test Item Value Reference Range Interpretation Comments HS Troponin I 0 to 1 Hour Delta (test -4 code = HS Troponin I 0 to 1 Hour Delta) [place] [address]-03-14 22:03:00 Test Item Value Reference Range Interpretation Comments HS Troponin I 1 Hr (test code = HS 20 Troponin I 1 Hr) [place] [address]-03-14 22:03:00 Test Item Value Reference Range Interpretation Comments HS Troponin I 0 to 1 Hour Delta (test -4 code = HS Troponin I 0 to 1 Hour Delta) [place] [address]-03-14 21:19:00 Test Item Value Reference Range Interpretation Comments A/G Ratio (test code = A/G Ratio) 0.6 1 0.7-1.6 [place] [address]-03-14 21:19:00 Test Item Value Reference Range Interpretation Comments ALT (test code = ALT) no gt See_Comment [Auto mated message] The system which ge nerated this result transmit sally reference range : <=65. The reference range was not used to interpr et this result as henrry l/abnormal. [place] [address]-03-14 21:19:00 Test Item Value Reference Range Interpretation Comments AST (test code = AST) 15 See_Comment [Auto mated message] The system which ge nerated this result transmit sally reference range : <=37. The reference range was not used to interpr et this result as henrry l/abnormal. [facility] HospitalGemygkgYEVEILNEA7717-04-35 21:19:00 Test Item Value Reference Range Interpretation Comments Alk Phos (test code = Alk Phos) 69 39-136 [facility] HospitalFvtukjzWJIZWXRXD5614-24-69 21:19:00 Test Item Value Reference Range Interpretation Comments Bili Total (test code = Bili Total) 0.5 0.2-1.3 [facility] HospitalLnfrepjTSNODNAUX4630-43-81 21:19:00 Test Item Value Reference Range Interpretation Comments eGFR (test code = eGFR) 8 [facility] HospitalVaubfnjOACSGGSKY8002-37-37 21:19:00 Test Item Value Reference Range Interpretation Comments Total CK (test code = Total CK) 46 12-191 [facility] HospitalLtwbitgNZNKJCTYA0429-29-94 21:19:00 Test Item Value Reference Range Interpretation Comments BNP (test code = BNP) 70 [facility] HospitalQerdzwrADXEUKISN1582-36-80 21:19:00 Test Item Value Reference Range Interpretation Comments HS Troponin I Baseline (test code = HS 24 Troponin I Baseline) [facility]kinQfewgscXQMEXATDIK1901-72-82 21:19:00 Test Item Value Reference Range Interpretation Comments WBC (test code = WBC) 7.2 3.7-10.4 [facility]ufkinQapdawkDJFOTXDDZN5809-74-94 21:19:00 Test Item Value Reference Range Interpretation Comments RBC (test code = RBC) 3.11 4.20-5.40 [facility] LufkinXifohkiBJXGCCPNKC9355-85-60 21:19:00 Test Item Value Reference Range Interpretation Comments Hgb (test code = Hgb) 11.2 12.0-16.0 [facility]ufkinQnahoitLTUXDKWKFH2289-30-95 21:19:00 Test Item Value Reference Range Interpretation Comments Hct (test code = Hct) 33.9 36.0-48.0 [facility] LufkinLxkonjqUIGSASTSKP4003-34-47 21:19:00 Test Item Value Reference Range Interpretation Comments MCV (test code = MCV) 109.1 80.0-98.0 [facility]ufkinAwbxwpnNDQQHWNLDM3532-15-42 21:19:00 Test Item Value Reference Range Interpretation Comments MCH (test code = MCH) 36.0 pg 27.0-31.0 [place] 740133-03-14 21:19:00 Test Item Value Reference Range Interpretation Comments MCHC (test code = MCHC) 33.0 32.0-36.0 [facility]ufkinYofbkdhDZLDBNUJBW3179-57-50 21:19:00 Test Item Value Reference Range Interpretation Comments RDW (test code = RDW) 18.3 11.5-14.5 [place] 740133-03-14 21:19:00 Test Item Value Reference Range Interpretation Comments Platelet (test code = Platelet) 269 133-450 [facility]ufkinQgqbhwlQPYHHFVWUS8306-71-36 21:19:00 Test Item Value Reference Range Interpretation Comments MPV (test code = MPV) 9.4 7.4-10.4 [place] [address]-03-14 21:19:00 Test Item Value Reference Range Interpretation Comments PT (test code = PT) 14.7 s 12.0-14.7 [place] [address]-03-14 21:19:00 Test Item Value Reference Range Interpretation Comments INR (test code = INR) 1.15 1 0.87-1.13 [place] 740133-03-14 21:19:00 Test Item Value Reference Range Interpretation Comments PTT (test code = PTT) 28.4 s 22.9-35.8 [place] [address]-03-14 21:19:00 Test Item Value Reference Range Interpretation Comments Neutrophils # (test code = Neutrophils 1.7 1.5-8.1 #) [facility]ufkinWsaxbuzDHHBKUKNQJ7140-82-57 21:19:00 Test Item Value Reference Range Interpretation Comments Lymphocytes # (test code = Lymphocytes 5.0 1.0-5.5 #) [place] [address]-03-14 21:19:00 Test Item Value Reference Range Interpretation Comments Monocytes # (test code 0.4 See_Comment [Aut omated message] The = Monocytes #) system which generated this result tra nsmitted reference range : <=0.8. The reference r calli was not used to int erpret this result as normal/abnormal . [facility]ufkinNqnacvaDILVSXCGBK7103-97-56 21:19:00 Test Item Value Reference Range Interpretation Comments Eosinophils # (test code 0.1 See_Comment [A utomated message] The = Eosinophils #) system whic h generated this result tra nsmitted reference range : <=0.5. The reference r calli was not used to int erpret this result as normal/abnormal . [facility]ufkinYspaezyBZNTWXDRTV7995-33-66 21:19:00 Test Item Value Reference Range Interpretation Comments Segs (test code = Segs) 22.0 45.0-75.0 [facility] LufkinStjvnqcALHFDOZJMA2135-39-98 21:19:00 Test Item Value Reference Range Interpretation Comments Bands (test code = 2.0 See_Comment [Automat ed message] The Bands) system which ge nerated this result transmit sally reference range : <=11.0. The reference r calli was not used to interpr et this result as henrry l/abnormal. [facility]ufkinMfvjgpoACBMFMYLDC7256-18-31 21:19:00 Test Item Value Reference Range Interpretation Comments Lymphocytes (test code = Lymphocytes) 54.0 20.0-40.0 [facility]ufkinPmooasvGTRCLZQOMW3553-06-56 21:19:00 Test Item Value Reference Range Interpretation Comments Monocytes (test code = Monocytes) 6.0 2.0-12.0 [facility] LufkinVturiubSVFCXJSFPE8198-66-86 21:19:00 Test Item Value Reference Range Interpretation Comments Eosinophils (test code = 1.0 See_Comment [A utomated message] The Eosinophils) system which ge nerated this result tra nsmitted reference range : <=4.0. The reference r calli was not used to int erpret this result as normal/abnormal . [facility]ufkinUtpjfnmETCPEWVOVH9150-18-75 21:19:00 Test Item Value Reference Range Interpretation Comments Atypical Lymphs (test code = Atypical 15.0 Lymphs) [facility] LufkinEodgttiRFAMFKGHGP6549-80-37 21:19:00 Test Item Value Reference Range Interpretation Comments RBC Morph (test code = Normal (06/06/22 4:19 RBC Morph) PM) [facility]ufkinIpnwxqmZHPXUHSPVB4048-55-61 21:19:00 Test Item Value Reference Range Interpretation Comments Plt Morph (test code = Normal (06/06/22 4:19 Plt Morph) PM) [facility]ufkinWdznhjwOFIWQWXYQJ3239-95-07 21:19:00 Test Item Value Reference Range Interpretation Comments Macrocyte (test code = 2+ *ABN*(06/06/22 Macrocyte) 4:19 PM) [facility]ufkinMeuwrlwMXAUOHRIYX6300-15-83 21:19:00 Test Item Value Reference Range Interpretation Comments Large Plt (test code Moderate *ABN*(06/06/22 = Large Plt) 4:19 PM) [facility] HospitalOrmpapfTCTCHBTZK4467-86-36 21:19:00 Test Item Value Reference Range Interpretation Comments Glucose Lvl (test code = Glucose Lvl) 81 70-99 [facility] HospitalHfjfpbvDVUOHFOIS8745-80-06 21:19:00 Test Item Value Reference Range Interpretation Comments BUN (test code = BUN) 34 7-22 [facility] HospitalCypvxtnZELDWJUBO1699-78-90 21:19:00 Test Item Value Reference Range Interpretation Comments Creatinine Lvl (test code = Creatinine 5.94 0.50-1.40 Lvl) [facility] HospitalBtaqulcIJNFDKQRH2124-86-58 21:19:00 Test Item Value Reference Range Interpretation Comments Sodium Lvl (test code = Sodium Lvl) 134 135-145 [facility] HospitalKgqrwikVCTGMFHOQ1524-29-78 21:19:00 Test Item Value Reference Range Interpretation Comments Potassium Lvl (test code = Potassium 2.9 3.5-5.1 Lvl) [facility] HospitalOcgjrpwRFERQDKDJ4937-77-10 21:19:00 Test Item Value Reference Range Interpretation Comments Chloride Lvl (test code = Chloride Lvl) 100 95-109 [facility] HospitalLbyavoyQOZAUKWUC4630-04-92 21:19:00 Test Item Value Reference Range Interpretation Comments CO2 (test code = CO2) 26 24-32 [facility] HospitalXeowditEOUEPDDUX0651-73-77 21:19:00 Test Item Value Reference Range Interpretation Comments AGAP (test code = AGAP) 10.9 10.0-20.0 [facility] HospitalEpgliliIOWDAORIM0406-62-29 21:19:00 Test Item Value Reference Range Interpretation Comments Calcium Lvl (test code = Calcium Lvl) 9.4 8.5-10.5 [facility] HospitalTihdzbgJSJIWRIHT0408-63-75 21:19:00 Test Item Value Reference Range Interpretation Comments B/C Ratio (test code = B/C Ratio) 6 1 6-25 [place] 462113-03-14 21:19:00 Test Item Value Reference Range Interpretation Comments Total Protein (test code = Total 7.0 6.4-8.4 Protein) [facility] HospitalXbfokufKGRCAGLFI1423-13-29 21:19:00 Test Item Value Reference Range Interpretation Comments Albumin Lvl (test code = Albumin Lvl) 2.6 3.5-5.0 [facility]IewobbhGFFQGVDED3650-33-84 21:19:00 Test Item Value Reference Range Interpretation Comments Globulin (test code = Globulin) 4.4 2.7-4.2 [facility]evilleAoouersHSEDVSZYE3949-43-85 21:19:00 Test Item Value Reference Range Interpretation Comments A/G Ratio (test code = A/G Ratio) 0.6 1 0.7-1.6 [facility]evilleXmuqktmBMHPECXGM4745-17-81 21:19:00 Test Item Value Reference Range Interpretation Comments ALT (test code = ALT) no gt See_Comment [Auto mated message] The system which ge nerated this result transmit sally reference range : <=65. The reference range was not used to interpr et this result as henrry l/abnormal. [facility]evilleMuooszbSMBCSEPNS3958-41-32 21:19:00 Test Item Value Reference Range Interpretation Comments AST (test code = AST) 15 See_Comment [Auto mated message] The system which ge nerated this result transmit sally reference range : <=37. The reference range was not used to interpr et this result as henrry l/abnormal. [facility] BeevilleYuzbefzEQELIFRLT6861-42-78 21:19:00 Test Item Value Reference Range Interpretation Comments Alk Phos (test code = Alk Phos) 69 39-136 [facility] BeevilleNknufntUVJPFOZDA7062-42-14 21:19:00 Test Item Value Reference Range Interpretation Comments Bili Total (test code = Bili Total) 0.5 0.2-1.3 [facility]evilleVkgwodxOKJRCOXUE8849-30-20 21:19:00 Test Item Value Reference Range Interpretation Comments eGFR (test code = eGFR) 8 [facility]evilleCgjbvldLDXOKBVJY8783-83-68 21:19:00 Test Item Value Reference Range Interpretation Comments Total CK (test code = Total CK) 46 12-191 [facility] BeevilleGeuyizqRSPIGKXTI2929-32-67 21:19:00 Test Item Value Reference Range Interpretation Comments BNP (test code = BNP) 70 [facility] BeevilleYyeonieFXTKBSXZS7322-05-39 21:19:00 Test Item Value Reference Range Interpretation Comments HS Troponin I Baseline (test code = HS 24 Troponin I Baseline) [facility]evilleWlvgidqGJMNFZLHOP3888-31-78 21:19:00 Test Item Value Reference Range Interpretation Comments WBC (test code = WBC) 7.2 3.7-10.4 [facility]ufkinMedtrrlTVLXGBURFJ7563-68-33 21:19:00 Test Item Value Reference Range Interpretation Comments RBC (test code = RBC) 3.11 4.20-5.40 [facility]ufkinMahrlkyWVZPNOEDCS7226-08-13 21:19:00 Test Item Value Reference Range Interpretation Comments Hgb (test code = Hgb) 11.2 12.0-16.0 [facility]ufkinYrmdhyyZAJNPPFATW8554-75-47 21:19:00 Test Item Value Reference Range Interpretation Comments Hct (test code = Hct) 33.9 36.0-48.0 [facility] LufkinLmusluwDETCMMCJOR0927-48-03 21:19:00 Test Item Value Reference Range Interpretation Comments MCV (test code = MCV) 109.1 80.0-98.0 [facility]ufkinVmwhvuoCZOCWUBIVZ2085-04-86 21:19:00 Test Item Value Reference Range Interpretation Comments MCH (test code = MCH) 36.0 pg 27.0-31.0 [facility] LufkinGmdewpyBBYIPTQUZU4559-25-85 21:19:00 Test Item Value Reference Range Interpretation Comments MCHC (test code = MCHC) 33.0 32.0-36.0 [facility]ufkinWrdzoxrYFIIBHECPM8463-56-14 21:19:00 Test Item Value Reference Range Interpretation Comments RDW (test code = RDW) 18.3 11.5-14.5 [facility]ufkinWexjvjqLFHCHNWVPG3649-48-27 21:19:00 Test Item Value Reference Range Interpretation Comments Platelet (test code = Platelet) 269 133-450 [facility]ufkinTcgrkfjCRRRAKVCSH1906-64-80 21:19:00 Test Item Value Reference Range Interpretation Comments MPV (test code = MPV) 9.4 7.4-10.4 [facility] LufkinVnxlqzwYCZPQWFTOW5030-30-21 21:19:00 Test Item Value Reference Range Interpretation Comments PT (test code = PT) 14.7 s 12.0-14.7 [facility] LufkinDiogohxCCAWBECZQW9406-74-65 21:19:00 Test Item Value Reference Range Interpretation Comments INR (test code = INR) 1.15 1 0.87-1.13 [facility] LufkinQymoztwGEMPKSBHIL9309-88-62 21:19:00 Test Item Value Reference Range Interpretation Comments PTT (test code = PTT) 28.4 s 22.9-35.8 [place] 740133-03-14 21:19:00 Test Item Value Reference Range Interpretation Comments Neutrophils # (test code = Neutrophils 1.7 1.5-8.1 #) [place] 740133-03-14 21:19:00 Test Item Value Reference Range Interpretation Comments Lymphocytes # (test code = Lymphocytes 5.0 1.0-5.5 #) [place] 740133-03-14 21:19:00 Test Item Value Reference Range Interpretation Comments Monocytes # (test code 0.4 See_Comment [Aut omated message] The = Monocytes #) system which generated this result tra nsmitted reference range : <=0.8. The reference r calli was not used to int erpret this result as normal/abnormal . [facility]ufkinMuxwbluYMCETHFQZH0856-00-48 21:19:00 Test Item Value Reference Range Interpretation Comments Eosinophils # (test code 0.1 See_Comment [A utomated message] The = Eosinophils #) system whic h generated this result tra nsmitted reference range : <=0.5. The reference r calli was not used to int erpret this result as normal/abnormal . [facility]ufkinQyudkuhSSRGLFLRNL4831-72-69 21:19:00 Test Item Value Reference Range Interpretation Comments Segs (test code = Segs) 22.0 45.0-75.0 [place] 740133-03-14 21:19:00 Test Item Value Reference Range Interpretation Comments Bands (test code = 2.0 See_Comment [Automat ed message] The Bands) system which ge nerated this result transmit sally reference range : <=11.0. The reference r calli was not used to interpr et this result as henrry l/abnormal. [facility]ufkinQaypushJPHDKWANID2669-23-12 21:19:00 Test Item Value Reference Range Interpretation Comments Lymphocytes (test code = Lymphocytes) 54.0 20.0-40.0 [place] [address]-03-14 21:19:00 Test Item Value Reference Range Interpretation Comments Monocytes (test code = Monocytes) 6.0 2.0-12.0 [place] 740133-03-14 21:19:00 Test Item Value Reference Range Interpretation Comments Eosinophils (test code = 1.0 See_Comment [A utomated message] The Eosinophils) system which ge nerated this result tra nsmitted reference range : <=4.0. The reference r calli was not used to int erpret this result as normal/abnormal . [facility] LufkinVwblufnKZBINPUXHE5146-15-82 21:19:00 Test Item Value Reference Range Interpretation Comments Atypical Lymphs (test code = Atypical 15.0 Lymphs) [facility]ufkinKebudazPTASXKPDDD4967-28-81 21:19:00 Test Item Value Reference Range Interpretation Comments RBC Morph (test code = Normal (06/06/22 4:19 RBC Morph) PM) [facility]ufkinGpowvbjWJENJKSQGG5617-11-88 21:19:00 Test Item Value Reference Range Interpretation Comments Plt Morph (test code = Normal (06/06/22 4:19 Plt Morph) PM) [facility]ufkinFegwlkpWVVXRJDUKL2076-26-43 21:19:00 Test Item Value Reference Range Interpretation Comments Macrocyte (test code = 2+ *ABN*(06/06/22 Macrocyte) 4:19 PM) [facility]ufkinRhgdctqYLALAVGZTL5705-83-09 21:19:00 Test Item Value Reference Range Interpretation Comments Large Plt (test code Moderate *ABN*(06/06/22 = Large Plt) 4:19 PM) [facility] HospitalWjlycloVVQJPHLDI7066-23-36 21:19:00 Test Item Value Reference Range Interpretation Comments Glucose Lvl (test code = Glucose Lvl) 81 70-99 [facility] HospitalDgpvdznMAOMJIPQU1550-97-95 21:19:00 Test Item Value Reference Range Interpretation Comments BUN (test code = BUN) 34 7-22 [facility] HospitalQsidlofYHOODWZBB3741-49-84 21:19:00 Test Item Value Reference Range Interpretation Comments Creatinine Lvl (test code = Creatinine 5.94 0.50-1.40 Lvl) [facility] HospitalFhdayhhRXYJBWSWB6556-41-80 21:19:00 Test Item Value Reference Range Interpretation Comments Sodium Lvl (test code = Sodium Lvl) 134 135-145 [facility] HospitalBtskevdTZSRWCFWQ8124-19-73 21:19:00 Test Item Value Reference Range Interpretation Comments Potassium Lvl (test code = Potassium 2.9 3.5-5.1 Lvl) [facility] HospitalKbihaldWCXQAPAOI6445-73-07 21:19:00 Test Item Value Reference Range Interpretation Comments Chloride Lvl (test code = Chloride Lvl) 100 95-109 [facility] HospitalFgalcrjTIQGXEKFI4100-49-40 21:19:00 Test Item Value Reference Range Interpretation Comments CO2 (test code = CO2) 26 24-32 [place] [address]-03-14 21:19:00 Test Item Value Reference Range Interpretation Comments AGAP (test code = AGAP) 10.9 10.0-20.0 [facility] HospitalEvirkalGDSOEKQVQ5370-14-38 21:19:00 Test Item Value Reference Range Interpretation Comments Calcium Lvl (test code = Calcium Lvl) 9.4 8.5-10.5 [place] [address]-03-14 21:19:00 Test Item Value Reference Range Interpretation Comments B/C Ratio (test code = B/C Ratio) 6 1 6-25 [place] [address]-03-14 21:19:00 Test Item Value Reference Range Interpretation Comments Total Protein (test code = Total 7.0 6.4-8.4 Protein) [facility] HospitalHsvvsezKCCKRSGAD4439-54-47 21:19:00 Test Item Value Reference Range Interpretation Comments Albumin Lvl (test code = Albumin Lvl) 2.6 3.5-5.0 [facility] HospitalCbbgtelSUEGQGNCP3905-79-59 21:19:00 Test Item Value Reference Range Interpretation Comments Globulin (test code = Globulin) 4.4 2.7-4.2 [facility] HospitalDhtdwvlCLDCYWIBM6191-02-43 21:19:00 Test Item Value Reference Range Interpretation Comments A/G Ratio (test code = A/G Ratio) 0.6 1 0.7-1.6 [facility] HospitalOoxrifzYFTRTBXCD0519-52-79 21:19:00 Test Item Value Reference Range Interpretation Comments ALT (test code = ALT) no gt See_Comment [Auto mated message] The system which ge nerated this result transmit sally reference range : <=65. The reference range was not used to interpr et this result as henrry l/abnormal. [facility] HospitalDaqdfirRIASWPNPH8724-76-63 21:19:00 Test Item Value Reference Range Interpretation Comments AST (test code = AST) 15 See_Comment [Auto mated message] The system which ge nerated this result transmit sally reference range : <=37. The reference range was not used to interpr et this result as henrry l/abnormal. [facility] HospitalXgkyjueUJGLCOMEB4399-79-15 21:19:00 Test Item Value Reference Range Interpretation Comments Alk Phos (test code = Alk Phos) 69 39-136 [facility] HospitalMysfxukBYXUXQNRA5867-73-34 21:19:00 Test Item Value Reference Range Interpretation Comments Bili Total (test code = Bili Total) 0.5 0.2-1.3 [facility] HospitalUucwybhDSLNNVWMP8912-08-23 21:19:00 Test Item Value Reference Range Interpretation Comments eGFR (test code = eGFR) 8 [facility] HospitalGjvyozhLNJDZFMAP1488-25-50 21:19:00 Test Item Value Reference Range Interpretation Comments Total CK (test code = Total CK) 46 12-191 [facility] HospitalHprcrnkPUZINUHQW9312-61-86 21:19:00 Test Item Value Reference Range Interpretation Comments BNP (test code = BNP) 70 [facility] HospitalHmptvxfBHONGWYUJ2251-65-15 21:19:00 Test Item Value Reference Range Interpretation Comments HS Troponin I Baseline (test code = HS 24 Troponin I Baseline) [facility]ufkinNixvmodHDAZAIESTA0534-10-88 21:19:00 Test Item Value Reference Range Interpretation Comments WBC (test code = WBC) 7.2 3.7-10.4 [facility]kinMeddjsjVOZBWPZEMV0848-37-38 21:19:00 Test Item Value Reference Range Interpretation Comments RBC (test code = RBC) 3.11 4.20-5.40 [facility]kinTeycgofSMOUFLIFRW7041-69-92 21:19:00 Test Item Value Reference Range Interpretation Comments Hgb (test code = Hgb) 11.2 12.0-16.0 [facility]kinUjuytccVIIIQWRNZF8688-84-77 21:19:00 Test Item Value Reference Range Interpretation Comments Hct (test code = Hct) 33.9 36.0-48.0 [facility]kinPsdczhnKROKWUIBVX6696-33-89 21:19:00 Test Item Value Reference Range Interpretation Comments MCV (test code = MCV) 109.1 80.0-98.0 [facility]kinGsyoynqDCSDLYODQR5473-06-60 21:19:00 Test Item Value Reference Range Interpretation Comments MCH (test code = MCH) 36.0 pg 27.0-31.0 [facility]kinIyhslthOIBPIOVMHA8771-48-70 21:19:00 Test Item Value Reference Range Interpretation Comments MCHC (test code = MCHC) 33.0 32.0-36.0 [facility]kinEpqgguxBRFJDHMCYU5728-60-68 21:19:00 Test Item Value Reference Range Interpretation Comments RDW (test code = RDW) 18.3 11.5-14.5 [place] 740133-03-14 21:19:00 Test Item Value Reference Range Interpretation Comments Platelet (test code = Platelet) 269 133-450 [facility]kinIhinuovFVTHUYRRAR0653-28-59 21:19:00 Test Item Value Reference Range Interpretation Comments MPV (test code = MPV) 9.4 7.4-10.4 [place] 740133-03-14 21:19:00 Test Item Value Reference Range Interpretation Comments PT (test code = PT) 14.7 s 12.0-14.7 [place] 740133-03-14 21:19:00 Test Item Value Reference Range Interpretation Comments INR (test code = INR) 1.15 1 0.87-1.13 [place] 740133-03-14 21:19:00 Test Item Value Reference Range Interpretation Comments PTT (test code = PTT) 28.4 s 22.9-35.8 [place] [address]-03-14 21:19:00 Test Item Value Reference Range Interpretation Comments Neutrophils # (test code = Neutrophils 1.7 1.5-8.1 #) [facility]kinOizwxbxIDMYUTAHAT1338-88-98 21:19:00 Test Item Value Reference Range Interpretation Comments Lymphocytes # (test code = Lymphocytes 5.0 1.0-5.5 #) [facility]kinGpaflioTVYNIIPJXU9360-43-98 21:19:00 Test Item Value Reference Range Interpretation Comments Monocytes # (test code 0.4 See_Comment [Aut omated message] The = Monocytes #) system which generated this result tra nsmitted reference range : <=0.8. The reference r calli was not used to int erpret this result as normal/abnormal . [place] 740133-03-14 21:19:00 Test Item Value Reference Range Interpretation Comments Eosinophils # (test code 0.1 See_Comment [A utomated message] The = Eosinophils #) system whic h generated this result tra nsmitted reference range : <=0.5. The reference r calli was not used to int erpret this result as normal/abnormal . [facility]kinRlzyaqsPGXBWZUMLK5434-04-95 21:19:00 Test Item Value Reference Range Interpretation Comments Segs (test code = Segs) 22.0 45.0-75.0 [facility]kinYnfibxdACHOMKUENE3015-18-21 21:19:00 Test Item Value Reference Range Interpretation Comments Bands (test code = 2.0 See_Comment [Automat ed message] The Bands) system which ge nerated this result transmit sally reference range : <=11.0. The reference r calli was not used to interpr et this result as henrry l/abnormal. [facility]kinJchzzjoTBHNJDHIVN8330-23-73 21:19:00 Test Item Value Reference Range Interpretation Comments Lymphocytes (test code = Lymphocytes) 54.0 20.0-40.0 [facility]kinFpotpzjNVGYNPNDVU9071-13-64 21:19:00 Test Item Value Reference Range Interpretation Comments Monocytes (test code = Monocytes) 6.0 2.0-12.0 [facility]kinXsnkgkiYXGCWGOZIU5414-74-23 21:19:00 Test Item Value Reference Range Interpretation Comments Eosinophils (test code = 1.0 See_Comment [A utomated message] The Eosinophils) system which ge nerated this result tra nsmitted reference range : <=4.0. The reference r calli was not used to int erpret this result as normal/abnormal . [facility]kinEdpbralIFMSRTTBPO1871-63-36 21:19:00 Test Item Value Reference Range Interpretation Comments Atypical Lymphs (test code = Atypical 15.0 Lymphs) [facility]kinNtvosnkNKGIREAUSE5755-62-78 21:19:00 Test Item Value Reference Range Interpretation Comments RBC Morph (test code = Normal (06/06/22 4:19 RBC Morph) PM) [facility]kinSztgxjdXHMJXTLORG3892-69-18 21:19:00 Test Item Value Reference Range Interpretation Comments Plt Morph (test code = Normal (06/06/22 4:19 Plt Morph) PM) [facility]kinSekozopHGKWYQPXJG8553-84-88 21:19:00 Test Item Value Reference Range Interpretation Comments Macrocyte (test code = 2+ *ABN*(06/06/22 Macrocyte) 4:19 PM) [facility]kinJofbzswGAAGDPZEDW9965-20-05 21:19:00 Test Item Value Reference Range Interpretation Comments Large Plt (test code Moderate *ABN*(06/06/22 = Large Plt) 4:19 PM) [facility]NfbrjcrCUTLNYXHZ0143-32-94 21:19:00 Test Item Value Reference Range Interpretation Comments Glucose Lvl (test code = Glucose Lvl) 81 70-99 [facility] HospitalIwloymzJKGHGELQH6640-37-52 21:19:00 Test Item Value Reference Range Interpretation Comments BUN (test code = BUN) 34 7-22 [facility] HospitalArysbcmCLNCKGUAF2532-57-63 21:19:00 Test Item Value Reference Range Interpretation Comments Creatinine Lvl (test code = Creatinine 5.94 0.50-1.40 Lvl) [facility] HospitalYwpaxyyTDEJMTQQA2998-45-21 21:19:00 Test Item Value Reference Range Interpretation Comments Sodium Lvl (test code = Sodium Lvl) 134 135-145 [facility] HospitalVcsfkraUKEBSLJPF8380-65-85 21:19:00 Test Item Value Reference Range Interpretation Comments Potassium Lvl (test code = Potassium 2.9 3.5-5.1 Lvl) [facility] HospitalDqxayfmTOIJUPTOF9401-49-75 21:19:00 Test Item Value Reference Range Interpretation Comments Chloride Lvl (test code = Chloride Lvl) 100 95-109 [facility] HospitalQmhkhkwTEYBLZLSK8605-87-32 21:19:00 Test Item Value Reference Range Interpretation Comments CO2 (test code = CO2) 26 24-32 [facility] HospitalQvceqalHQDGECBFH9321-17-61 21:19:00 Test Item Value Reference Range Interpretation Comments AGAP (test code = AGAP) 10.9 10.0-20.0 [facility] HospitalEpphuqxRJKCRFHQU7576-14-66 21:19:00 Test Item Value Reference Range Interpretation Comments Calcium Lvl (test code = Calcium Lvl) 9.4 8.5-10.5 [facility] HospitalEmxrnkrURGIJKNKX2184-55-69 21:19:00 Test Item Value Reference Range Interpretation Comments B/C Ratio (test code = B/C Ratio) 6 1 6-25 [facility] HospitalEziifpeCDWKFTHPF5977-95-82 21:19:00 Test Item Value Reference Range Interpretation Comments Total Protein (test code = Total 7.0 6.4-8.4 Protein) [facility] HospitalGhwrfkuATXPPDZJO0578-83-05 21:19:00 Test Item Value Reference Range Interpretation Comments Albumin Lvl (test code = Albumin Lvl) 2.6 3.5-5.0 [facility] HospitalXhluumlRRJWQDZQJ1711-24-19 21:19:00 Test Item Value Reference Range Interpretation Comments Globulin (test code = Globulin) 4.4 2.7-4.2 [place] OvxazjaVXFHGRUWZ2678-51-35 21:19:00 Test Item Value Reference Range Interpretation Comments A/G Ratio (test code = A/G Ratio) 0.6 1 0.7-1.6 [facility]JwsjhkiTFVAAKAMM3615-69-45 21:19:00 Test Item Value Reference Range Interpretation Comments ALT (test code = ALT) no gt See_Comment [Auto mated message] The system which ge nerated this result transmit sally reference range : <=65. The reference range was not used to interpr et this result as henrry l/abnormal. [place] QdfvpvmQTYSTNNKZ3346-25-31 21:19:00 Test Item Value Reference Range Interpretation Comments AST (test code = AST) 15 See_Comment [Auto mated message] The system which ge nerated this result transmit sally reference range : <=37. The reference range was not used to interpr et this result as henrry l/abnormal. [place] BbocqnvFSDMXAZWM1109-47-37 21:19:00 Test Item Value Reference Range Interpretation Comments Alk Phos (test code = Alk Phos) 69 39-136 [facility]FnbsrusRKIRAPFEE5033-55-59 21:19:00 Test Item Value Reference Range Interpretation Comments Bili Total (test code = Bili Total) 0.5 0.2-1.3 [facility]evilleZwykpueWAZUYJZIL2605-51-65 21:19:00 Test Item Value Reference Range Interpretation Comments eGFR (test code = eGFR) 8 [facility]evilleGdzbatnXKIOKKSCH0537-22-92 21:19:00 Test Item Value Reference Range Interpretation Comments Total CK (test code = Total CK) 46 12-191 [facility]evilleLszmunaWTLBYGUCV1520-89-36 21:19:00 Test Item Value Reference Range Interpretation Comments BNP (test code = BNP) 70 [place] DmwmbhwBNBFXWTJC3798-67-80 21:19:00 Test Item Value Reference Range Interpretation Comments HS Troponin I Baseline (test code = HS 24 Troponin I Baseline) [facility]evilleBjxctjzPXKFEGPQKL9650-47-43 21:19:00 Test Item Value Reference Range Interpretation Comments WBC (test code = WBC) 7.2 3.7-10.4 [facility]evilleRgsgtlvYRUWHDZXYM3956-32-75 21:19:00 Test Item Value Reference Range Interpretation Comments RBC (test code = RBC) 3.11 4.20-5.40 [place] 740133-03-14 21:19:00 Test Item Value Reference Range Interpretation Comments Hgb (test code = Hgb) 11.2 12.0-16.0 [facility]kinSawmxgbRYHPFHMNAZ8655-92-62 21:19:00 Test Item Value Reference Range Interpretation Comments Hct (test code = Hct) 33.9 36.0-48.0 [facility]kinCickmejGFHSOEJMMV0443-03-89 21:19:00 Test Item Value Reference Range Interpretation Comments MCV (test code = MCV) 109.1 80.0-98.0 [facility]kinPntcztzMJCSSOFPBP8867-02-00 21:19:00 Test Item Value Reference Range Interpretation Comments MCH (test code = MCH) 36.0 pg 27.0-31.0 [facility]kinXyipjasWYPIGYZGLZ0412-79-04 21:19:00 Test Item Value Reference Range Interpretation Comments MCHC (test code = MCHC) 33.0 32.0-36.0 [facility]kinNddabftJWTPDHWGFZ0075-16-98 21:19:00 Test Item Value Reference Range Interpretation Comments RDW (test code = RDW) 18.3 11.5-14.5 [facility]kinUagckzjUWQDESDLSH6155-16-21 21:19:00 Test Item Value Reference Range Interpretation Comments Platelet (test code = Platelet) 269 133-450 [facility]kinJxmxsuxBJQAMOXZXF2173-82-61 21:19:00 Test Item Value Reference Range Interpretation Comments MPV (test code = MPV) 9.4 7.4-10.4 [facility]kinTvulgifMGNJAGUROR4755-05-02 21:19:00 Test Item Value Reference Range Interpretation Comments PT (test code = PT) 14.7 s 12.0-14.7 [place] 740133-03-14 21:19:00 Test Item Value Reference Range Interpretation Comments INR (test code = INR) 1.15 1 0.87-1.13 [facility]kinArgrtfxEMFQXQTCUB5738-36-36 21:19:00 Test Item Value Reference Range Interpretation Comments PTT (test code = PTT) 28.4 s 22.9-35.8 [facility]kinWrjqnlzQMBSXVEUXX7879-19-29 21:19:00 Test Item Value Reference Range Interpretation Comments Neutrophils # (test code = Neutrophils 1.7 1.5-8.1 #) [facility]kinEjcklscTEJDJVKQXI8582-10-01 21:19:00 Test Item Value Reference Range Interpretation Comments Lymphocytes # (test code = Lymphocytes 5.0 1.0-5.5 #) [facility]kinDkkfpdrQCLAAHHDMU5388-45-00 21:19:00 Test Item Value Reference Range Interpretation Comments Monocytes # (test code 0.4 See_Comment [Aut omated message] The = Monocytes #) system which generated this result tra nsmitted reference range : <=0.8. The reference r calli was not used to int erpret this result as normal/abnormal . [facility]kinIicngtbQPNRYNITPJ6530-64-72 21:19:00 Test Item Value Reference Range Interpretation Comments Eosinophils # (test code 0.1 See_Comment [A utomated message] The = Eosinophils #) system whic h generated this result tra nsmitted reference range : <=0.5. The reference r calli was not used to int erpret this result as normal/abnormal . [facility]kinZczfazuTGAIWDATSL2167-37-84 21:19:00 Test Item Value Reference Range Interpretation Comments Segs (test code = Segs) 22.0 45.0-75.0 [place] 740133-03-14 21:19:00 Test Item Value Reference Range Interpretation Comments Bands (test code = 2.0 See_Comment [Automat ed message] The Bands) system which ge nerated this result transmit sally reference range : <=11.0. The reference r calli was not used to interpr et this result as henrry l/abnormal. [facility]kinMutdkjyYOHWBKHYQO6850-10-35 21:19:00 Test Item Value Reference Range Interpretation Comments Lymphocytes (test code = Lymphocytes) 54.0 20.0-40.0 [facility]kinGthwtzvGWOTRMIGGF2913-49-16 21:19:00 Test Item Value Reference Range Interpretation Comments Monocytes (test code = Monocytes) 6.0 2.0-12.0 [place] 740133-03-14 21:19:00 Test Item Value Reference Range Interpretation Comments Eosinophils (test code = 1.0 See_Comment [A utomated message] The Eosinophils) system which ge nerated this result tra nsmitted reference range : <=4.0. The reference r calli was not used to int erpret this result as normal/abnormal . [facility]kinGwpzgsxGJUWKRMPOP2062-92-69 21:19:00 Test Item Value Reference Range Interpretation Comments Atypical Lymphs (test code = Atypical 15.0 Lymphs) [facility]kinBlkkgpvOQOJBEYMRW2936-71-56 21:19:00 Test Item Value Reference Range Interpretation Comments RBC Morph (test code = Normal (06/06/22 4:19 RBC Morph) PM) [place] 740133-03-14 21:19:00 Test Item Value Reference Range Interpretation Comments Plt Morph (test code = Normal (06/06/22 4:19 Plt Morph) PM) [facility]kinLdozcmvXIWFUOSVME2709-76-55 21:19:00 Test Item Value Reference Range Interpretation Comments Macrocyte (test code = 2+ *ABN*(06/06/22 Macrocyte) 4:19 PM) [facility]kinHgoefgyUODLLHGABZ8415-95-06 21:19:00 Test Item Value Reference Range Interpretation Comments Large Plt (test code Moderate *ABN*(06/06/22 = Large Plt) 4:19 PM) [facility] HospitalWndswwnAPWBMTZHW4965-95-64 21:19:00 Test Item Value Reference Range Interpretation Comments Glucose Lvl (test code = Glucose Lvl) 81 70-99 [facility] HospitalAolgmygAXIWXCWFR2216-51-72 21:19:00 Test Item Value Reference Range Interpretation Comments BUN (test code = BUN) 34 7-22 [facility] HospitalOupxwzxJGOOONUAX9178-10-61 21:19:00 Test Item Value Reference Range Interpretation Comments Creatinine Lvl (test code = Creatinine 5.94 0.50-1.40 Lvl) [facility] HospitalIyzdzbhJDFDHFSSL8803-28-80 21:19:00 Test Item Value Reference Range Interpretation Comments Sodium Lvl (test code = Sodium Lvl) 134 135-145 [facility] HospitalYjookfaXTHCXNCDZ0611-08-89 21:19:00 Test Item Value Reference Range Interpretation Comments Potassium Lvl (test code = Potassium 2.9 3.5-5.1 Lvl) [facility] HospitalDuxozvrYXAPGKMQH0479-08-47 21:19:00 Test Item Value Reference Range Interpretation Comments Chloride Lvl (test code = Chloride Lvl) 100 95-109 [facility] HospitalCxkolrbGZRIOLVBF1241-87-14 21:19:00 Test Item Value Reference Range Interpretation Comments CO2 (test code = CO2) 26 24-32 [facility] HospitalMpyheqeLVGMLDYOF4471-14-90 21:19:00 Test Item Value Reference Range Interpretation Comments AGAP (test code = AGAP) 10.9 10.0-20.0 [facility] HospitalAopkkseJDCYJBJEI2148-84-38 21:19:00 Test Item Value Reference Range Interpretation Comments Calcium Lvl (test code = Calcium Lvl) 9.4 8.5-10.5 [facility] HospitalGnyhhhnREFGDQWFC2446-63-03 21:19:00 Test Item Value Reference Range Interpretation Comments B/C Ratio (test code = B/C Ratio) 6 1 6-25 [facility] HospitalKbhwgyvULWGSAXGH6743-19-25 21:19:00 Test Item Value Reference Range Interpretation Comments Total Protein (test code = Total 7.0 6.4-8.4 Protein) [facility] HospitalRwrdeyfDYNDTWXLP6450-96-90 21:19:00 Test Item Value Reference Range Interpretation Comments Albumin Lvl (test code = Albumin Lvl) 2.6 3.5-5.0 [facility] HospitalLdciftwQJBKIEHDN9189-08-74 21:19:00 Test Item Value Reference Range Interpretation Comments Globulin (test code = Globulin) 4.4 2.7-4.2 [facility]xks[facility]hmSZTOYY[facility]44[facility] 03:28:11 Test Item Value Reference Range Interpretation Comments RADRPT (test code Radiation Dose CTDIVOL = 0 = RADRPT) (mGy): DLP = 896.13 (mGy-cm)PROCEDURE INFORMATION: Exam: CT Head Without Contrast Exam date and time: 03/28/2022 7:57 PM Age: 56 years old Clinical indication: /quesitonable seizure TECHNIQUE: Imaging protocol: Computed tomography of the head without contrast. Radiation optimization: All CT scans at this facility use at least one of these dose optimization techniques: automated exposure control; mA and/or kV adjustment per patient size (includes targeted exams where dose is matched to clinical indication); or iterative reconstruction. COMPARISON: BRAIN WO CONTRAST MRI 02/28/2022 3:36 PM RADIATION DOSE METRICS: Total DLP (mGy-cm): 896.13 FINDINGS: Brain: Old bilateral basal ganglia infarcts. No acute infarct or intracranial hemorrhage. Cerebral ventricles: No ventriculomegaly. Paranasal sinuses: Visualized sinuses are unremarkable. No fluid levels. Mastoid air cells: Visualized mastoid air cells are well aerated. Bones/joints: Unremarkable. No acute fracture. Soft tissues: Unremarkable. IMPRESSION: 1. No acute intracranial abnormality.2. Old bilateral basal ganglia infarcts. Neno Tao MD On 03/28/2022 21:26:59; [id number] [facility]AbojjahITEWON5689-67-63 03:28:11 Test Item Value Reference Range Interpretation Comments RADRPT (test code Radiation Dose CTDIVOL = 0 = RADRPT) (mGy): DLP = 896.13 (mGy-cm)PROCEDURE INFORMATION: Exam: CT Head Without Contrast Exam date and time: 03/28/2022 7:57 PM Age: 56 years old Clinical indication: /quesitonable seizure TECHNIQUE: Imaging protocol: Computed tomography of the head without contrast. Radiation optimization: All CT scans at this facility use at least one of these dose optimization techniques: automated exposure control; mA and/or kV adjustment per patient size (includes targeted exams where dose is matched to clinical indication); or iterative reconstruction. COMPARISON: BRAIN WO CONTRAST MRI 02/28/2022 3:36 PM RADIATION DOSE METRICS: Total DLP (mGy-cm): 896.13 FINDINGS: Brain: Old bilateral basal ganglia infarcts. No acute infarct or intracranial hemorrhage. Cerebral ventricles: No ventriculomegaly. Paranasal sinuses: Visualized sinuses are unremarkable. No fluid levels. Mastoid air cells: Visualized mastoid air cells are well aerated. Bones/joints: Unremarkable. No acute fracture. Soft tissues: Unremarkable. IMPRESSION: 1. No acute intracranial abnormality.2. Old bilateral basal ganglia infarcts. Neno Tao MD On 03/28/2022 21:26:59; [id number] [facility] CenterRoulxqiMQUVDR6266-96-15 03:28:11 Test Item Value Reference Range Interpretation Comments RADRPT (test code Radiation Dose CTDIVOL = 0 = RADRPT) (mGy): DLP = 896.13 (mGy-cm)PROCEDURE INFORMATION: Exam: CT Head Without Contrast Exam date and time: 03/28/2022 7:57 PM Age: 56 years old Clinical indication: /quesitonable seizure TECHNIQUE: Imaging protocol: Computed tomography of the head without contrast. Radiation optimization: All CT scans at this facility use at least one of these dose optimization techniques: automated exposure control; mA and/or kV adjustment per patient size (includes targeted exams where dose is matched to clinical indication); or iterative reconstruction. COMPARISON: BRAIN WO CONTRAST MRI 02/28/2022 3:36 PM RADIATION DOSE METRICS: Total DLP (mGy-cm): 896.13 FINDINGS: Brain: Old bilateral basal ganglia infarcts. No acute infarct or intracranial hemorrhage. Cerebral ventricles: No ventriculomegaly. Paranasal sinuses: Visualized sinuses are unremarkable. No fluid levels. Mastoid air cells: Visualized mastoid air cells are well aerated. Bones/joints: Unremarkable. No acute fracture. Soft tissues: Unremarkable. IMPRESSION: 1. No acute intracranial abnormality.2. Old bilateral basal ganglia infarcts. Neno Tao MD On 03/28/2022 21:26:59; [id number] [facility] [place], TXAtqiepxOLMREN2736-20-02 03:28:11 Test Item Value Reference Range Interpretation Comments RADRPT (test code Radiation Dose CTDIVOL = 0 = RADRPT) (mGy): DLP = 896.13 (mGy-cm)PROCEDURE INFORMATION: Exam: CT Head Without Contrast Exam date and time: 03/28/2022 7:57 PM Age: 56 years old Clinical indication: /quesitonable seizure TECHNIQUE: Imaging protocol: Computed tomography of the head without contrast. Radiation optimization: All CT scans at this facility use at least one of these dose optimization techniques: automated exposure control; mA and/or kV adjustment per patient size (includes targeted exams where dose is matched to clinical indication); or iterative reconstruction. COMPARISON: BRAIN WO CONTRAST MRI 02/28/2022 3:36 PM RADIATION DOSE METRICS: Total DLP (mGy-cm): 896.13 FINDINGS: Brain: Old bilateral basal ganglia infarcts. No acute infarct or intracranial hemorrhage. Cerebral ventricles: No ventriculomegaly. Paranasal sinuses: Visualized sinuses are unremarkable. No fluid levels. Mastoid air cells: Visualized mastoid air cells are well aerated. Bones/joints: Unremarkable. No acute fracture. Soft tissues: Unremarkable. IMPRESSION: 1. No acute intracranial abnormality.2. Old bilateral basal ganglia infarcts. Neno Tao MD On 03/28/2022 21:26:59; [id number] [facility] [id number] 02:38:06 Test Item Value Reference Range Interpretation Comments RADRPT (test code PROCEDURE INFORMATION: = RADRPT) Exam: XR Chest Exam date and time: 03/28/2022 7:24 PM Age: 56 years old Clinical indication: /seizure TECHNIQUE: Imaging protocol: Radiologic exam of the chest. Views: 1 view. COMPARISON: CHEST 1VIEW DX 02/28/2022 12:51 PM FINDINGS: Lungs: The lungs are clear. Lung volumes are low. Right-sided central venous catheter tip overlies the inferior right atrial region.Pleural spaces: Unremarkable. No pleural effusion. No pneumothorax. Heart/Mediastinum: Heart size is within normal limits. Vasculature is unremarkable. Bones/joints: Spondylotic changes noted in the thoracic spine. There are degenerative changes in the right shoulder.IMPRESSION: No acute cardiopulmonary findings. Herve Drake MD On 03/28/2022 20:36:57; [id number] [facility] CenterFahwrlqBPEALR6231-61-49 02:38:06 Test Item Value Reference Range Interpretation Comments RADRPT (test code PROCEDURE INFORMATION: = RADRPT) Exam: XR Chest Exam date and time: 03/28/2022 7:24 PM Age: 56 years old Clinical indication: /seizure TECHNIQUE: Imaging protocol: Radiologic exam of the chest. Views: 1 view. COMPARISON: CHEST 1VIEW DX 02/28/2022 12:51 PM FINDINGS: Lungs: The lungs are clear. Lung volumes are low. Right-sided central venous catheter tip overlies the inferior right atrial region.Pleural spaces: Unremarkable. No pleural effusion. No pneumothorax. Heart/Mediastinum: Heart size is within normal limits. Vasculature is unremarkable. Bones/joints: Spondylotic changes noted in the thoracic spine. There are degenerative changes in the right shoulder.IMPRESSION: No acute cardiopulmonary findings. Herve Drake MD On 03/28/2022 20:36:57; [id number] [facility] CenterYsphocbJKWIZK8728-77-53 02:38:06 Test Item Value Reference Range Interpretation Comments RADRPT (test code PROCEDURE INFORMATION: = RADRPT) Exam: XR Chest Exam date and time: 03/28/2022 7:24 PM Age: 56 years old Clinical indication: /seizure TECHNIQUE: Imaging protocol: Radiologic exam of the chest. Views: 1 view. COMPARISON: CHEST 1VIEW DX 02/28/2022 12:51 PM FINDINGS: Lungs: The lungs are clear. Lung volumes are low. Right-sided central venous catheter tip overlies the inferior right atrial region.Pleural spaces: Unremarkable. No pleural effusion. No pneumothorax. Heart/Mediastinum: Heart size is within normal limits. Vasculature is unremarkable. Bones/joints: Spondylotic changes noted in the thoracic spine. There are degenerative changes in the right shoulder.IMPRESSION: No acute cardiopulmonary findings. Herve Drake MD On 03/28/2022 20:36:57; [id number] [place] [id number] 02:38:06 Test Item Value Reference Range Interpretation Comments RADRPT (test code PROCEDURE INFORMATION: = RADRPT) Exam: XR Chest Exam date and time: 03/28/2022 7:24 PM Age: 56 years old Clinical indication: /seizure TECHNIQUE: Imaging protocol: Radiologic exam of the chest. Views: 1 view. COMPARISON: CHEST 1VIEW DX 02/28/2022 12:51 PM FINDINGS: Lungs: The lungs are clear. Lung volumes are low. Right-sided central venous catheter tip overlies the inferior right atrial region.Pleural spaces: Unremarkable. No pleural effusion. No pneumothorax. Heart/Mediastinum: Heart size is within normal limits. Vasculature is unremarkable. Bones/joints: Spondylotic changes noted in the thoracic spine. There are degenerative changes in the right shoulder.IMPRESSION: No acute cardiopulmonary findings. Herve Drake MD On 03/28/2022 20:36:57; [id number] [place] Darya AND [id number] 02:27:00 Test Item Value Reference Range Interpretation Comments UA Color (test code = Light Yellow (03/28/22 UA Color) 8:27 PM) [place] Darya AND [id number] 02:27:00 Test Item Value Reference Range Interpretation Comments UA Turbidity (test code Slight *ABN*(03/28/22 = UA Turbidity) 8:27 PM) [place] KristieannCELESTINA AND [id number] 02:27:00 Test Item Value Reference Range Interpretation Comments UA Sq Epi (test code = UA Sq Epi) Few /LPF [place] KristieannCELESTINA AND [id number] 02:27:00 Test Item Value Reference Range Interpretation Comments UA WBC (test code = no gt See_Comment [Automa sally message] The UA WBC) system which ge nerated this result transmit sally reference range : <=5. The reference range was not used to interpr et this result as henrry l/abnormal. [place] KristieannCELESTINA AND [id number] 02:27:00 Test Item Value Reference Range Interpretation Comments UA RBC (test code = 8 See_Comment [Automa sally message] The UA RBC) system which ge nerated this result transmit sally reference range : <=2. The reference range was not used to interpr et this result as henrry l/abnormal. [facility] AND [id number] 02:27:00 Test Item Value Reference Range Interpretation Comments UA Bacteria (test code = UA Few /HPF Bacteria) [facility] AND [id number] 02:27:00 Test Item Value Reference Range Interpretation Comments UA Spec Grav (test code = UA Spec 1.015 1 Grav) [facility] AND [id number] 02:27:00 Test Item Value Reference Range Interpretation Comments UA pH (test code = UA pH) 6.0 1 5.0-8.0 [facility] AND [id number] 02:27:00 Test Item Value Reference Range Interpretation Comments UA Protein (test code = UA Protein) 100 mg/dL [facility] AND [id number] 02:27:00 Test Item Value Reference Range Interpretation Comments UA Glucose (test code Negative (03/28/22 8:27 = UA Glucose) PM) [facility] AND [id number] 02:27:00 Test Item Value Reference Range Interpretation Comments UA Ketones (test code Negative *NA*(03/28/22 = UA Ketones) 8:27 PM) [facility] AND [id number] 02:27:00 Test Item Value Reference Range Interpretation Comments UA Bili (test code = Negative *NA*(03/28/22 UA Bili) 8:27 PM) [facility] AND [id number] 02:27:00 Test Item Value Reference Range Interpretation Comments UA Blood (test code = Moderate *ABN*(03/28/22 UA Blood) 8:27 PM) [facility] AND [id number] 02:27:00 Test Item Value Reference Range Interpretation Comments UA Urobilinogen (test code = UA 0.2 0.1-1.0 Urobilinogen) [facility] AND [id number] 02:27:00 Test Item Value Reference Range Interpretation Comments UA Nitrite (test code Negative (03/28/22 8:27 = UA Nitrite) PM) [facility] [id number] 02:27:00 Test Item Value Reference Range Interpretation Comments UA Leuk Est (test code Large *ABN*(03/28/22 8:27 = UA Leuk Est) PM) [facility]: [id number] 02:27:00 Test Item Value Reference Range Interpretation Comments Culture: Urine (test code = No Growth Culture: Urine) [facility] AND [id number] 02:27:00 Test Item Value Reference Range Interpretation Comments UA Color (test code = Light Yellow (03/28/22 UA Color) 8:27 PM) [facility] [id number] 02:27:00 Test Item Value Reference Range Interpretation Comments UA Turbidity (test code Slight *ABN*(03/28/22 = UA Turbidity) 8:27 PM) [facility] [id number] 02:27:00 Test Item Value Reference Range Interpretation Comments UA Sq Epi (test code = UA Sq Epi) Few /LPF [facility] [id number] 02:27:00 Test Item Value Reference Range Interpretation Comments UA WBC (test code = no gt See_Comment [Automa sally message] The UA WBC) system which ge nerated this result transmit sally reference range : <=5. The reference range was not used to interpr et this result as henrry l/abnormal. [facility] AND [id number] 02:27:00 Test Item Value Reference Range Interpretation Comments UA RBC (test code = 8 See_Comment [Automa sally message] The UA RBC) system which ge nerated this result transmit sally reference range : <=2. The reference range was not used to interpr et this result as henrry l/abnormal. [facility] [id number] 02:27:00 Test Item Value Reference Range Interpretation Comments UA Bacteria (test code = UA Few /HPF Bacteria) [facility] [id number] 02:27:00 Test Item Value Reference Range Interpretation Comments UA Spec Grav (test code = UA Spec 1.015 1 Grav) [facility] [id number] 02:27:00 Test Item Value Reference Range Interpretation Comments UA pH (test code = UA pH) 6.0 1 5.0-8.0 [facility] [id number] 02:27:00 Test Item Value Reference Range Interpretation Comments UA Protein (test code = UA Protein) 100 mg/dL [facility] [id number] 02:27:00 Test Item Value Reference Range Interpretation Comments UA Glucose (test code Negative (03/28/22 8:27 = UA Glucose) PM) [facility] [id number] 02:27:00 Test Item Value Reference Range Interpretation Comments UA Ketones (test code Negative *NA*(03/28/22 = UA Ketones) 8:27 PM) [facility] [id number] 02:27:00 Test Item Value Reference Range Interpretation Comments UA Bili (test code = Negative *NA*(03/28/22 UA Bili) 8:27 PM) [place] [facility] AND [id number] 02:27:00 Test Item Value Reference Range Interpretation Comments UA Blood (test code = Moderate *ABN*(03/28/22 UA Blood) 8:27 PM) [facility] AND [id number] 02:27:00 Test Item Value Reference Range Interpretation Comments UA Urobilinogen (test code = UA 0.2 0.1-1.0 Urobilinogen) [facility] [id number] 02:27:00 Test Item Value Reference Range Interpretation Comments UA Nitrite (test code Negative (03/28/22 8:27 = UA Nitrite) PM) [facility] [id number] 02:27:00 Test Item Value Reference Range Interpretation Comments UA Leuk Est (test code Large *ABN*(03/28/22 8:27 = UA Leuk Est) PM) [facility]: [id number] 02:27:00 Test Item Value Reference Range Interpretation Comments Culture: Urine (test code = No Growth Culture: Urine) [facility] [id number] 02:27:00 Test Item Value Reference Range Interpretation Comments UA Color (test code = Light Yellow (03/28/22 UA Color) 8:27 PM) [place] [facility] AND [id number] 02:27:00 Test Item Value Reference Range Interpretation Comments UA Turbidity (test code Slight *ABN*(03/28/22 = UA Turbidity) 8:27 PM) [facility] [id number] 02:27:00 Test Item Value Reference Range Interpretation Comments UA Sq Epi (test code = UA Sq Epi) Few /LPF [facility] [id number] 02:27:00 Test Item Value Reference Range Interpretation Comments UA WBC (test code = no gt See_Comment [Automa sally message] The UA WBC) system which ge nerated this result transmit sally reference range : <=5. The reference range was not used to interpr et this result as henrry l/abnormal. [facility] [id number] 02:27:00 Test Item Value Reference Range Interpretation Comments UA RBC (test code = 8 See_Comment [Automa sally message] The UA RBC) system which ge nerated this result transmit sally reference range : <=2. The reference range was not used to interpr et this result as henrry l/abnormal. [facility] [id number] 02:27:00 Test Item Value Reference Range Interpretation Comments UA Bacteria (test code = UA Few /HPF Bacteria) [facility] AND [id number] 02:27:00 Test Item Value Reference Range Interpretation Comments UA Spec Grav (test code = UA Spec 1.015 1 Grav) [facility] AND [id number] 02:27:00 Test Item Value Reference Range Interpretation Comments UA pH (test code = UA pH) 6.0 1 5.0-8.0 [facility] AND [id number] 02:27:00 Test Item Value Reference Range Interpretation Comments UA Protein (test code = UA Protein) 100 mg/dL [facility] AND [id number] 02:27:00 Test Item Value Reference Range Interpretation Comments UA Glucose (test code Negative (03/28/22 8:27 = UA Glucose) PM) [facility] AND [id number] 02:27:00 Test Item Value Reference Range Interpretation Comments UA Ketones (test code Negative *NA*(03/28/22 = UA Ketones) 8:27 PM) [facility] [id number] 02:27:00 Test Item Value Reference Range Interpretation Comments UA Bili (test code = Negative *NA*(03/28/22 UA Bili) 8:27 PM) [facility] [id number] 02:27:00 Test Item Value Reference Range Interpretation Comments UA Blood (test code = Moderate *ABN*(03/28/22 UA Blood) 8:27 PM) [facility] [id number] 02:27:00 Test Item Value Reference Range Interpretation Comments UA Urobilinogen (test code = UA 0.2 0.1-1.0 Urobilinogen) [facility] [id number] 02:27:00 Test Item Value Reference Range Interpretation Comments UA Nitrite (test code Negative (03/28/22 8:27 = UA Nitrite) PM) [facility] [id number] 02:27:00 Test Item Value Reference Range Interpretation Comments UA Leuk Est (test code Large *ABN*(03/28/22 8:27 = UA Leuk Est) PM) [facility] [id number] 02:27:00 Test Item Value Reference Range Interpretation Comments Culture: Urine (test code = No Growth Culture: Urine) [facility] [id number] 02:27:00 Test Item Value Reference Range Interpretation Comments UA Color (test code = Light Yellow (03/28/22 UA Color) 8:27 PM) [facility] [id number] 02:27:00 Test Item Value Reference Range Interpretation Comments UA Turbidity (test code Slight *ABN*(03/28/22 = UA Turbidity) 8:27 PM) [place] [facility] AND [id number] 02:27:00 Test Item Value Reference Range Interpretation Comments UA Sq Epi (test code = UA Sq Epi) Few /LPF [facility] [id number] 02:27:00 Test Item Value Reference Range Interpretation Comments UA WBC (test code = no gt See_Comment [Automa sally message] The UA WBC) system which ge nerated this result transmit sally reference range : <=5. The reference range was not used to interpr et this result as henrry l/abnormal. [facility] [id number] 02:27:00 Test Item Value Reference Range Interpretation Comments UA RBC (test code = 8 See_Comment [Automa sally message] The UA RBC) system which ge nerated this result transmit sally reference range : <=2. The reference range was not used to interpr et this result as henrry l/abnormal. [facility] AND [id number] 02:27:00 Test Item Value Reference Range Interpretation Comments UA Bacteria (test code = UA Few /HPF Bacteria) [facility] AND [id number] 02:27:00 Test Item Value Reference Range Interpretation Comments UA Spec Grav (test code = UA Spec 1.015 1 Grav) [facility] AND [id number] 02:27:00 Test Item Value Reference Range Interpretation Comments UA pH (test code = UA pH) 6.0 1 5.0-8.0 [facility] AND [id number] 02:27:00 Test Item Value Reference Range Interpretation Comments UA Protein (test code = UA Protein) 100 mg/dL [facility] AND [id number] 02:27:00 Test Item Value Reference Range Interpretation Comments UA Glucose (test code Negative (03/28/22 8:27 = UA Glucose) PM) [facility] AND [id number] 02:27:00 Test Item Value Reference Range Interpretation Comments UA Ketones (test code Negative *NA*(03/28/22 = UA Ketones) 8:27 PM) [facility] AND [id number] 02:27:00 Test Item Value Reference Range Interpretation Comments UA Bili (test code = Negative *NA*(03/28/22 UA Bili) 8:27 PM) [facility] AND [id number] 02:27:00 Test Item Value Reference Range Interpretation Comments UA Blood (test code = Moderate *ABN*(03/28/22 UA Blood) 8:27 PM) [facility] AND [id number] 02:27:00 Test Item Value Reference Range Interpretation Comments UA Urobilinogen (test code = UA 0.2 0.1-1.0 Urobilinogen) [facility] AND [id number] 02:27:00 Test Item Value Reference Range Interpretation Comments UA Nitrite (test code Negative (03/28/22 8:27 = UA Nitrite) PM) [facility] AND [id number] 02:27:00 Test Item Value Reference Range Interpretation Comments UA Leuk Est (test code Large *ABN*(03/28/22 8:27 = UA Leuk Est) PM) [facility] [id number] 02:27:00 Test Item Value Reference Range Interpretation Comments Culture: Urine (test code = No Growth Culture: Urine) [id number] 01:53:00 Test Item Value Reference Range Interpretation Comments Glucose Lvl (test code = Glucose Lvl) 73 70-99 [facility]EdwqtjyKYKDTEVML6677-25-30 01:53:00 Test Item Value Reference Range Interpretation Comments BUN (test code = BUN) 33 7-22 [facility] [id number] 01:53:00 Test Item Value Reference Range Interpretation Comments Creatinine Lvl (test code = Creatinine 6.87 0.50-1.40 Lvl) [facility] HospitalJplbgvbDGFGSWUCY8711-48-33 01:53:00 Test Item Value Reference Range Interpretation Comments Sodium Lvl (test code = Sodium Lvl) 137 135-145 [facility] Hospi[id number] 01:53:00 Test Item Value Reference Range Interpretation Comments Potassium Lvl (test code = Potassium 3.4 3.5-5.1 Lvl) [facility] [id number] 01:53:00 Test Item Value Reference Range Interpretation Comments Chloride Lvl (test code = Chloride Lvl) 102 95-109 [facility] [id number] 01:53:00 Test Item Value Reference Range Interpretation Comments CO2 (test code = CO2) 26 24-32 [facility] HospitalIiuxvllAWZGTCEFI4779-77-26 01:53:00 Test Item Value Reference Range Interpretation Comments AGAP (test code = AGAP) 12.4 10.0-20.0 [facility] HospitalBmugtaqLKFHVJUHO9751-06-89 01:53:00 Test Item Value Reference Range Interpretation Comments Calcium Lvl (test code = Calcium Lvl) 8.4 8.5-10.5 [facility] HospitalWflrqftMTLQBTKQI5892-79-06 01:53:00 Test Item Value Reference Range Interpretation Comments B/C Ratio (test code = B/C Ratio) 5 1 6-25 [facility] HospitalUkwbjfvWUDJVNZZR4451-74-35 01:53:00 Test Item Value Reference Range Interpretation Comments Total Protein (test code = Total 6.5 6.4-8.4 Protein) [id number] 01:53:00 Test Item Value Reference Range Interpretation Comments Albumin Lvl (test code = Albumin Lvl) 2.5 3.5-5.0 [id number] 01:53:00 Test Item Value Reference Range Interpretation Comments Globulin (test code = Globulin) 4.0 2.7-4.2 [facility]evilleWfdsjnoGYAKDPRTQ6105-50-31 01:53:00 Test Item Value Reference Range Interpretation Comments A/G Ratio (test code = A/G Ratio) 0.6 1 0.7-1.6 [facility]evilleRaybzhvKUCSTNEDK9901-85-29 01:53:00 Test Item Value Reference Range Interpretation Comments ALT (test code = ALT) 6 See_Comment [Auto mated message] The system which ge nerated this result transmit sally reference range : <=65. The reference range was not used to interpr et this result as henrry l/abnormal. [facility] Beevi[id number] 01:53:00 Test Item Value Reference Range Interpretation Comments AST (test code = AST) 17 See_Comment [Auto mated message] The system which ge nerated this result transmit sally reference range : <=37. The reference range was not used to interpr et this result as henrry l/abnormal. [facility]evillePqqyyqiQGYNMEVGD3693-87-90 01:53:00 Test Item Value Reference Range Interpretation Comments Alk Phos (test code = Alk Phos) 57 39-136 [facility] BeevilleMhvjljsTHLRQQJIV6276-26-63 01:53:00 Test Item Value Reference Range Interpretation Comments Bili Total (test code = Bili Total) 0.4 0.2-1.3 [facility]evilleMbnbwfiEPDYGPNDC4851-71-58 01:53:00 Test Item Value Reference Range Interpretation Comments eGFR (test code = eGFR) 6 [place] LiphdgzFXCNCIMFLG4557-28-56 01:53:00 Test Item Value Reference Range Interpretation Comments WBC (test code = WBC) 4.1 3.7-10.4 [facility]evilleAkyfhyyNPQPVOZTJR3860-35-65 01:53:00 Test Item Value Reference Range Interpretation Comments RBC (test code = RBC) 3.34 4.20-5.40 [facility] BeevilleTrnevxiRLUUCRMLDQ9343-40-11 01:53:00 Test Item Value Reference Range Interpretation Comments Hgb (test code = Hgb) 11.6 12.0-16.0 [place] 740133-01-04 01:53:00 Test Item Value Reference Range Interpretation Comments Hct (test code = Hct) 35.9 36.0-48.0 [place] 740133-01-04 01:53:00 Test Item Value Reference Range Interpretation Comments MCV (test code = MCV) 107.5 80.0-98.0 [place] 740133-01-04 01:53:00 Test Item Value Reference Range Interpretation Comments MCH (test code = MCH) 34.7 pg 27.0-31.0 [place] 740133-01-04 01:53:00 Test Item Value Reference Range Interpretation Comments MCHC (test code = MCHC) 32.3 32.0-36.0 [place] 740133-01-04 01:53:00 Test Item Value Reference Range Interpretation Comments RDW (test code = RDW) 18.0 11.5-14.5 [place] 740133-01-04 01:53:00 Test Item Value Reference Range Interpretation Comments Platelet (test code = Platelet) 358 133-450 [facility]kinTikjlgzKBGYXYSSIM5111-94-04 01:53:00 Test Item Value Reference Range Interpretation Comments MPV (test code = MPV) 8.7 7.4-10.4 [place] 740133-01-04 01:53:00 Test Item Value Reference Range Interpretation Comments Segs (test code = Segs) 38.6 45.0-75.0 [place] 740133-01-04 01:53:00 Test Item Value Reference Range Interpretation Comments Lymphocytes (test code = Lymphocytes) 51.5 20.0-40.0 [place] 740133-01-04 01:53:00 Test Item Value Reference Range Interpretation Comments Monocytes (test code = Monocytes) 8.4 2.0-12.0 [place] 740133-01-04 01:53:00 Test Item Value Reference Range Interpretation Comments Eosinophils (test code = 0.4 See_Comment [A utomated message] The Eosinophils) system which ge nerated this result tra nsmitted reference range : <=4.0. The reference r calli was not used to int erpret this result as normal/abnormal . [facility]ufkinQldeoviCKWKXWJUVT2153-36-70 01:53:00 Test Item Value Reference Range Interpretation Comments Basophils (test code = 1.1 See_Comment [Aut omated message] The Basophils) system which ge nerated this result tra nsmitted reference range : <=1.0. The reference r calli was not used to int erpret this result as normal/abnormal . [place] 740133-01-04 01:53:00 Test Item Value Reference Range Interpretation Comments Neutrophils # (test code = Neutrophils 1.6 1.5-8.1 #) [facility]kinOkfcmljQLWLAQYPNQ0198-18-52 01:53:00 Test Item Value Reference Range Interpretation Comments Lymphocytes # (test code = Lymphocytes 2.1 1.0-5.5 #) [facility]ufkinMdreimaTWBVNJUCDV8040-65-62 01:53:00 Test Item Value Reference Range Interpretation Comments Monocytes # (test code 0.3 See_Comment [Aut omated message] The = Monocytes #) system which generated this result tra nsmitted reference range : <=0.8. The reference r calli was not used to int erpret this result as normal/abnormal . [facility]ufkinWwcvyuaNXCMMQTBET7691-32-72 01:53:00 Test Item Value Reference Range Interpretation Comments Macrocyte (test code = 1+ *ABN*(03/28/22 7:53 Macrocyte) PM) [place] 462113-01-04 01:53:00 Test Item Value Reference Range Interpretation Comments Glucose Lvl (test code = Glucose Lvl) 73 70-99 [place] 462113-01-04 01:53:00 Test Item Value Reference Range Interpretation Comments BUN (test code = BUN) 33 7-22 [place] [address]-01-04 01:53:00 Test Item Value Reference Range Interpretation Comments Creatinine Lvl (test code = Creatinine 6.87 0.50-1.40 Lvl) [place] 462113-01-04 01:53:00 Test Item Value Reference Range Interpretation Comments Sodium Lvl (test code = Sodium Lvl) 137 135-145 [place] 462113-01-04 01:53:00 Test Item Value Reference Range Interpretation Comments Potassium Lvl (test code = Potassium 3.4 3.5-5.1 Lvl) [facility] HospitalFgzbnxmUPHMVRIQA0260-21-12 01:53:00 Test Item Value Reference Range Interpretation Comments Chloride Lvl (test code = Chloride Lvl) 102 95-109 [place] 462113-01-04 01:53:00 Test Item Value Reference Range Interpretation Comments CO2 (test code = CO2) 26 24-32 [place] 462113-01-04 01:53:00 Test Item Value Reference Range Interpretation Comments AGAP (test code = AGAP) 12.4 10.0-20.0 [place] [address]-01-04 01:53:00 Test Item Value Reference Range Interpretation Comments Calcium Lvl (test code = Calcium Lvl) 8.4 8.5-10.5 [place] [address]-01-04 01:53:00 Test Item Value Reference Range Interpretation Comments B/C Ratio (test code = B/C Ratio) 5 1 6-25 [place] 462113-01-04 01:53:00 Test Item Value Reference Range Interpretation Comments Total Protein (test code = Total 6.5 6.4-8.4 Protein) [facility] HospitalTxkckjgRLJPADEQQ7796-92-82 01:53:00 Test Item Value Reference Range Interpretation Comments Albumin Lvl (test code = Albumin Lvl) 2.5 3.5-5.0 [facility] HospitalKemwwchGGZYSXBHI7534-18-99 01:53:00 Test Item Value Reference Range Interpretation Comments Globulin (test code = Globulin) 4.0 2.7-4.2 [facility] HospitalBvzjtqxPFEKPADCO1945-94-03 01:53:00 Test Item Value Reference Range Interpretation Comments A/G Ratio (test code = A/G Ratio) 0.6 1 0.7-1.6 [place] 462113-01-04 01:53:00 Test Item Value Reference Range Interpretation Comments ALT (test code = ALT) 6 See_Comment [Auto mated message] The system which ge nerated this result transmit sally reference range : <=65. The reference range was not used to interpr et this result as henrry l/abnormal. [place] 462113-01-04 01:53:00 Test Item Value Reference Range Interpretation Comments AST (test code = AST) 17 See_Comment [Auto mated message] The system which ge nerated this result transmit sally reference range : <=37. The reference range was not used to interpr et this result as henrry l/abnormal. [facility] [facility]7007-97-37 01:53:00 Test Item Value Reference Range Interpretation Comments Alk Phos (test code = Alk Phos) 57 39-136 [place] 462113-01-04 01:53:00 Test Item Value Reference Range Interpretation Comments Bili Total (test code = Bili Total) 0.4 0.2-1.3 [facility]rJOJHQJWHL1657-69-18 01:53:00 Test Item Value Reference Range Interpretation Comments eGFR (test code = eGFR) 6 [facility]vip[facility]dGVTADQWAFD6387-19-23 01:53:00 Test Item Value Reference Range Interpretation Comments WBC (test code = WBC) 4.1 3.7-10.4 [facility]FzxuidyXMRONOZLMP4439-25-12 01:53:00 Test Item Value Reference Range Interpretation Comments RBC (test code = RBC) 3.34 4.20-5.40 [facility] HospitalZcvdvxwRRORTXJNVG1581-75-58 01:53:00 Test Item Value Reference Range Interpretation Comments Hgb (test code = Hgb) 11.6 12.0-16.0 [facility] HospitalBnieviiKXDVEEIOCS6762-26-83 01:53:00 Test Item Value Reference Range Interpretation Comments Hct (test code = Hct) 35.9 36.0-48.0 [facility] HospitalKeqwmytCQZJBAXXTU9358-70-21 01:53:00 Test Item Value Reference Range Interpretation Comments MCV (test code = MCV) 107.5 80.0-98.0 [facility] HospitalUosddiaSOAUYHIRNN0480-58-25 01:53:00 Test Item Value Reference Range Interpretation Comments MCH (test code = MCH) 34.7 pg 27.0-31.0 [facility] HospitalIqvlcumROYIAJWVYD7576-78-31 01:53:00 Test Item Value Reference Range Interpretation Comments MCHC (test code = MCHC) 32.3 32.0-36.0 [facility] HospitalMtthbonPXEUWYEQEK4036-72-85 01:53:00 Test Item Value Reference Range Interpretation Comments RDW (test code = RDW) 18.0 11.5-14.5 [facility] HospitalHgzjfbjKFPYCULLYD0878-58-65 01:53:00 Test Item Value Reference Range Interpretation Comments Platelet (test code = Platelet) 358 133-450 [place] 740133-01-04 01:53:00 Test Item Value Reference Range Interpretation Comments MPV (test code = MPV) 8.7 7.4-10.4 [place] [address]-01-04 01:53:00 Test Item Value Reference Range Interpretation Comments Segs (test code = Segs) 38.6 45.0-75.0 [place] 740133-01-04 01:53:00 Test Item Value Reference Range Interpretation Comments Lymphocytes (test code = Lymphocytes) 51.5 20.0-40.0 [place] [address]-01-04 01:53:00 Test Item Value Reference Range Interpretation Comments Monocytes (test code = Monocytes) 8.4 2.0-12.0 [place] [address]-01-04 01:53:00 Test Item Value Reference Range Interpretation Comments Eosinophils (test code = 0.4 See_Comment [A utomated message] The Eosinophils) system which ge nerated this result tra nsmitted reference range : <=4.0. The reference r calli was not used to int erpret this result as normal/abnormal . [place] 740133-01-04 01:53:00 Test Item Value Reference Range Interpretation Comments Basophils (test code = 1.1 See_Comment [Aut omated message] The Basophils) system which ge nerated this result tra nsmitted reference range : <=1.0. The reference r calli was not used to int erpret this result as normal/abnormal . [facility]EnaucbmXKQCMLNUJN4987-87-30 01:53:00 Test Item Value Reference Range Interpretation Comments Neutrophils # (test code = Neutrophils 1.6 1.5-8.1 #) [place] 740133-01-04 01:53:00 Test Item Value Reference Range Interpretation Comments Lymphocytes # (test code = Lymphocytes 2.1 1.0-5.5 #) [place] [address]-01-04 01:53:00 Test Item Value Reference Range Interpretation Comments Monocytes # (test code 0.3 See_Comment [Aut omated message] The = Monocytes #) system which generated this result tra nsmitted reference range : <=0.8. The reference r calli was not used to int erpret this result as normal/abnormal . [place] [address]-01-04 01:53:00 Test Item Value Reference Range Interpretation Comments Macrocyte (test code = 1+ *ABN*(03/28/22 7:53 Macrocyte) PM) [facility] HospitalZhseortWVKGKQRRN8137-85-93 01:53:00 Test Item Value Reference Range Interpretation Comments Glucose Lvl (test code = Glucose Lvl) 73 70-99 [facility] HospitalFtdmkhzTFYKBCDRI1352-02-93 01:53:00 Test Item Value Reference Range Interpretation Comments BUN (test code = BUN) 33 7-22 [facility] HospitalLgwogvtSSLGGMQVN0833-25-57 01:53:00 Test Item Value Reference Range Interpretation Comments Creatinine Lvl (test code = Creatinine 6.87 0.50-1.40 Lvl) [facility] HospitalLmkyepqPBSNNOZZW9806-92-76 01:53:00 Test Item Value Reference Range Interpretation Comments Sodium Lvl (test code = Sodium Lvl) 137 135-145 [place] 462113-01-04 01:53:00 Test Item Value Reference Range Interpretation Comments Potassium Lvl (test code = Potassium 3.4 3.5-5.1 Lvl) [facility] HospitalMbxkkmsCFFTLOFDS4286-42-07 01:53:00 Test Item Value Reference Range Interpretation Comments Chloride Lvl (test code = Chloride Lvl) 102 95-109 [facility] HospitalHwqlylxFBAVEOGZQ2972-90-65 01:53:00 Test Item Value Reference Range Interpretation Comments CO2 (test code = CO2) 26 24-32 [facility] HospitalGqqofxzVOTEWDBBT6874-09-08 01:53:00 Test Item Value Reference Range Interpretation Comments AGAP (test code = AGAP) 12.4 10.0-20.0 [facility] HospitalVxijfceDVIUQPROD7363-59-23 01:53:00 Test Item Value Reference Range Interpretation Comments Calcium Lvl (test code = Calcium Lvl) 8.4 8.5-10.5 [facility] HospitalApmdhumWTTKJHLFD3319-67-31 01:53:00 Test Item Value Reference Range Interpretation Comments B/C Ratio (test code = B/C Ratio) 5 1 6-25 [facility] HospitalEwxdboiJBZMXRTZS4415-50-45 01:53:00 Test Item Value Reference Range Interpretation Comments Total Protein (test code = Total 6.5 6.4-8.4 Protein) [facility] HospitalYcvhtfaWYASJCAAE8363-59-53 01:53:00 Test Item Value Reference Range Interpretation Comments Albumin Lvl (test code = Albumin Lvl) 2.5 3.5-5.0 [facility]qmldgJZDHVTKYV8894-56-92 01:53:00 Test Item Value Reference Range Interpretation Comments Globulin (test code = Globulin) 4.0 2.7-4.2 [facility]evilleUbqizxlOVNRCMKJH8358-85-01 01:53:00 Test Item Value Reference Range Interpretation Comments A/G Ratio (test code = A/G Ratio) 0.6 1 0.7-1.6 [facility]evilleOnsysfvIFCPLXHMR3158-52-12 01:53:00 Test Item Value Reference Range Interpretation Comments ALT (test code = ALT) 6 See_Comment [Auto mated message] The system which ge nerated this result transmit sally reference range : <=65. The reference range was not used to interpr et this result as henrry l/abnormal. [facility]evilleWrumhtyKAZVBWUJN0424-26-03 01:53:00 Test Item Value Reference Range Interpretation Comments AST (test code = AST) 17 See_Comment [Auto mated message] The system which ge nerated this result transmit sally reference range : <=37. The reference range was not used to interpr et this result as henrry l/abnormal. [facility]evilleHjwjmmlVMEJNRZYY6542-87-19 01:53:00 Test Item Value Reference Range Interpretation Comments Alk Phos (test code = Alk Phos) 57 39-136 [facility] BeevilleUtoveruANCRDIPMS2912-74-80 01:53:00 Test Item Value Reference Range Interpretation Comments Bili Total (test code = Bili Total) 0.4 0.2-1.3 [facility]evilleOhggzdlKLAOCBVOI3587-14-47 01:53:00 Test Item Value Reference Range Interpretation Comments eGFR (test code = eGFR) 6 [facility]evilleQxwyywgARRTOXCAIH5434-54-38 01:53:00 Test Item Value Reference Range Interpretation Comments WBC (test code = WBC) 4.1 3.7-10.4 [facility]evilleCgejkhmTXULOGAVLQ2201-50-58 01:53:00 Test Item Value Reference Range Interpretation Comments RBC (test code = RBC) 3.34 4.20-5.40 [facility] BeevilleJjxvibiIERPTFKVTS5101-52-95 01:53:00 Test Item Value Reference Range Interpretation Comments Hgb (test code = Hgb) 11.6 12.0-16.0 [facility]YPXINFYDXS6839-57-54 01:53:00 Test Item Value Reference Range Interpretation Comments Hct (test code = Hct) 35.9 36.0-48.0 [place] 740133-01-04 01:53:00 Test Item Value Reference Range Interpretation Comments MCV (test code = MCV) 107.5 80.0-98.0 [place] 740133-01-04 01:53:00 Test Item Value Reference Range Interpretation Comments MCH (test code = MCH) 34.7 pg 27.0-31.0 [place] 740133-01-04 01:53:00 Test Item Value Reference Range Interpretation Comments MCHC (test code = MCHC) 32.3 32.0-36.0 [facility]kinLwohqphGMBJAVFMRP4622-91-08 01:53:00 Test Item Value Reference Range Interpretation Comments RDW (test code = RDW) 18.0 11.5-14.5 [place] 740133-01-04 01:53:00 Test Item Value Reference Range Interpretation Comments Platelet (test code = Platelet) 358 133-450 [facility]kinXhpmgyfPZOTIPAUZX3579-84-62 01:53:00 Test Item Value Reference Range Interpretation Comments MPV (test code = MPV) 8.7 7.4-10.4 [place] 740133-01-04 01:53:00 Test Item Value Reference Range Interpretation Comments Segs (test code = Segs) 38.6 45.0-75.0 [facility]ufkinNngjpfiUCALTIYTKC0943-08-77 01:53:00 Test Item Value Reference Range Interpretation Comments Lymphocytes (test code = Lymphocytes) 51.5 20.0-40.0 [place] 740133-01-04 01:53:00 Test Item Value Reference Range Interpretation Comments Monocytes (test code = Monocytes) 8.4 2.0-12.0 [place] 740133-01-04 01:53:00 Test Item Value Reference Range Interpretation Comments Eosinophils (test code = 0.4 See_Comment [A utomated message] The Eosinophils) system which ge nerated this result tra nsmitted reference range : <=4.0. The reference r calli was not used to int erpret this result as normal/abnormal . [facility]kinKnerhtlJPAWMOCFXE8528-73-48 01:53:00 Test Item Value Reference Range Interpretation Comments Basophils (test code = 1.1 See_Comment [Aut omated message] The Basophils) system which ge nerated this result tra nsmitted reference range : <=1.0. The reference r calli was not used to int erpret this result as normal/abnormal . [facility]kinHizikwoFGVYYBBZCJ9099-19-03 01:53:00 Test Item Value Reference Range Interpretation Comments Neutrophils # (test code = Neutrophils 1.6 1.5-8.1 #) [facility]kinWxhqnxkLHHJTLBXEN2643-80-77 01:53:00 Test Item Value Reference Range Interpretation Comments Lymphocytes # (test code = Lymphocytes 2.1 1.0-5.5 #) [facility]kinCrvhymkQYXFWKDEEA3841-52-04 01:53:00 Test Item Value Reference Range Interpretation Comments Monocytes # (test code 0.3 See_Comment [Aut omated message] The = Monocytes #) system which generated this result tra nsmitted reference range : <=0.8. The reference r calli was not used to int erpret this result as normal/abnormal . [facility]kinMksktbzEOMSPCVGQD1116-94-78 01:53:00 Test Item Value Reference Range Interpretation Comments Macrocyte (test code = 1+ *ABN*(03/28/22 7:53 Macrocyte) PM) [facility] HospitalWxyzmacGMWFBBVLZ9400-97-81 01:53:00 Test Item Value Reference Range Interpretation Comments Glucose Lvl (test code = Glucose Lvl) 73 70-99 [facility] HospitalHwcgvfjECCVXATXJ4632-39-48 01:53:00 Test Item Value Reference Range Interpretation Comments BUN (test code = BUN) 33 7-22 [facility] HospitalQbnswfgROQIHPMTV2067-82-00 01:53:00 Test Item Value Reference Range Interpretation Comments Creatinine Lvl (test code = Creatinine 6.87 0.50-1.40 Lvl) [facility] HospitalGwmzwzwDRVSBVJUM2659-53-36 01:53:00 Test Item Value Reference Range Interpretation Comments Sodium Lvl (test code = Sodium Lvl) 137 135-145 [facility] HospitalVvgyrxbBRMEDGFUH0915-38-08 01:53:00 Test Item Value Reference Range Interpretation Comments Potassium Lvl (test code = Potassium 3.4 3.5-5.1 Lvl) [facility] HospitalXpgnwukVQXEGINIE0506-09-38 01:53:00 Test Item Value Reference Range Interpretation Comments Chloride Lvl (test code = Chloride Lvl) 102 95-109 [facility] HospitalFfdtvpaQNVWTAKCC5827-93-40 01:53:00 Test Item Value Reference Range Interpretation Comments CO2 (test code = CO2) 26 24-32 [facility] HospitalSmflukbBDSLFLPCQ6849-01-32 01:53:00 Test Item Value Reference Range Interpretation Comments AGAP (test code = AGAP) 12.4 10.0-20.0 [facility] HospitalNiqdldbBQTSRABNF3405-50-45 01:53:00 Test Item Value Reference Range Interpretation Comments Calcium Lvl (test code = Calcium Lvl) 8.4 8.5-10.5 [facility] HospitalWrnyonaTBRZMVSMG0611-61-82 01:53:00 Test Item Value Reference Range Interpretation Comments B/C Ratio (test code = B/C Ratio) 5 1 6-25 [facility] HospitalFxeeawcMOWMZNQOL3939-34-37 01:53:00 Test Item Value Reference Range Interpretation Comments Total Protein (test code = Total 6.5 6.4-8.4 Protein) [facility] HospitalCphrqerJBNEASOKP1404-61-69 01:53:00 Test Item Value Reference Range Interpretation Comments Albumin Lvl (test code = Albumin Lvl) 2.5 3.5-5.0 [facility] HospitalBvcljaiKTYNBEYQA4337-46-21 01:53:00 Test Item Value Reference Range Interpretation Comments Globulin (test code = Globulin) 4.0 2.7-4.2 [facility] HospitalEigczylYWEUJIXIT1041-69-55 01:53:00 Test Item Value Reference Range Interpretation Comments A/G Ratio (test code = A/G Ratio) 0.6 1 0.7-1.6 [facility] HospitalBvuunhyWCYFMCFBQ8301-99-36 01:53:00 Test Item Value Reference Range Interpretation Comments ALT (test code = ALT) 6 See_Comment [Auto mated message] The system which ge nerated this result transmit sally reference range : <=65. The reference range was not used to interpr et this result as henrry l/abnormal. [facility] HospitalAuohdmsKUPSMDWPJ3453-07-87 01:53:00 Test Item Value Reference Range Interpretation Comments AST (test code = AST) 17 See_Comment [Auto mated message] The system which ge nerated this result transmit sally reference range : <=37. The reference range was not used to interpr et this result as henrry l/abnormal. [facility] HospitalUkoruxpZWTFOBEIA4567-64-45 01:53:00 Test Item Value Reference Range Interpretation Comments Alk Phos (test code = Alk Phos) 57 39-136 [facility] HospitalAhkyvuiSHEJXPWAB8676-77-34 01:53:00 Test Item Value Reference Range Interpretation Comments Bili Total (test code = Bili Total) 0.4 0.2-1.3 [facility] HospitalVvzxxryBTYPKCERV5458-68-44 01:53:00 Test Item Value Reference Range Interpretation Comments eGFR (test code = eGFR) 6 [facility]kinZncbpgmERXCOXFQKV4989-49-09 01:53:00 Test Item Value Reference Range Interpretation Comments WBC (test code = WBC) 4.1 3.7-10.4 [facility]kinDxtvotbYRQEXMRQDZ2318-55-17 01:53:00 Test Item Value Reference Range Interpretation Comments RBC (test code = RBC) 3.34 4.20-5.40 [place] 740133-01-04 01:53:00 Test Item Value Reference Range Interpretation Comments Hgb (test code = Hgb) 11.6 12.0-16.0 [facility]kinOyoampxZWALZGXRCI2647-23-34 01:53:00 Test Item Value Reference Range Interpretation Comments Hct (test code = Hct) 35.9 36.0-48.0 [facility]kinIfhxkprYSVPZGEHES7879-86-30 01:53:00 Test Item Value Reference Range Interpretation Comments MCV (test code = MCV) 107.5 80.0-98.0 [facility]kinOlaoonuQOZNPXINYV6897-42-59 01:53:00 Test Item Value Reference Range Interpretation Comments MCH (test code = MCH) 34.7 pg 27.0-31.0 [facility]ufkinIrscwkhQDXTBZQALA9639-76-28 01:53:00 Test Item Value Reference Range Interpretation Comments MCHC (test code = MCHC) 32.3 32.0-36.0 [facility]kinFkysmvsLPORQYHJIJ5619-25-60 01:53:00 Test Item Value Reference Range Interpretation Comments RDW (test code = RDW) 18.0 11.5-14.5 [facility]ufkinKaobwmqDURRPBUEYM0858-90-64 01:53:00 Test Item Value Reference Range Interpretation Comments Platelet (test code = Platelet) 358 133-450 [facility]ufkinFzgppdgWTWYMNKNLS5993-30-17 01:53:00 Test Item Value Reference Range Interpretation Comments MPV (test code = MPV) 8.7 7.4-10.4 [place] 740133-01-04 01:53:00 Test Item Value Reference Range Interpretation Comments Segs (test code = Segs) 38.6 45.0-75.0 [place] 740133-01-04 01:53:00 Test Item Value Reference Range Interpretation Comments Lymphocytes (test code = Lymphocytes) 51.5 20.0-40.0 [place] [address]-01-04 01:53:00 Test Item Value Reference Range Interpretation Comments Monocytes (test code = Monocytes) 8.4 2.0-12.0 [place] [address]-01-04 01:53:00 Test Item Value Reference Range Interpretation Comments Eosinophils (test code = 0.4 See_Comment [A utomated message] The Eosinophils) system which ge nerated this result tra nsmitted reference range : <=4.0. The reference r calli was not used to int erpret this result as normal/abnormal . [place] [address]-01-04 01:53:00 Test Item Value Reference Range Interpretation Comments Basophils (test code = 1.1 See_Comment [Aut omated message] The Basophils) system which ge nerated this result tra nsmitted reference range : <=1.0. The reference r calli was not used to int erpret this result as normal/abnormal . [place] 740133-01-04 01:53:00 Test Item Value Reference Range Interpretation Comments Neutrophils # (test code = Neutrophils 1.6 1.5-8.1 #) [place] 740133-01-04 01:53:00 Test Item Value Reference Range Interpretation Comments Lymphocytes # (test code = Lymphocytes 2.1 1.0-5.5 #) [place] [address]-01-04 01:53:00 Test Item Value Reference Range Interpretation Comments Monocytes # (test code 0.3 See_Comment [Aut omated message] The = Monocytes #) system which generated this result tra nsmitted reference range : <=0.8. The reference r calli was not used to int erpret this result as normal/abnormal . [place] [address]-01-04 01:53:00 Test Item Value Reference Range Interpretation Comments Macrocyte (test code = 1+ *ABN*(03/28/22 7:53 Macrocyte) PM) [place] 557132-12-08 17:20:00 Test Item Value Reference Range Interpretation Comments Glucose POC (test code = Glucose POC) 114 70-99 [place] 557132-12-08 17:20:00 Test Item Value Reference Range Interpretation Comments Gluc POC Comment 1 (test code Notified RN/MD = Gluc POC Comment 1) [place] [address]-12-08 17:20:00 Test Item Value Reference Range Interpretation Comments Gluc POC Comment 2 (test code = Cleaned Meter Gluc POC Comment 2) [place] 557132-12-08 17:20:00 Test Item Value Reference Range Interpretation Comments Glucose POC (test code = Glucose POC) 114 70-99 [place] 557132-12-08 17:20:00 Test Item Value Reference Range Interpretation Comments Gluc POC Comment 1 (test code Notified RN/MD = Gluc POC Comment 1) [place] 557132-12-08 17:20:00 Test Item Value Reference Range Interpretation Comments Gluc POC Comment 2 (test code = Cleaned Meter Gluc POC Comment 2) [place] 557132-12-08 17:20:00 Test Item Value Reference Range Interpretation Comments Glucose POC (test code = Glucose POC) 114 70-99 [place] 557132-12-08 17:20:00 Test Item Value Reference Range Interpretation Comments Gluc POC Comment 1 (test code Notified RN/MD = Gluc POC Comment 1) [place] 557132-12-08 17:20:00 Test Item Value Reference Range Interpretation Comments Gluc POC Comment 2 (test code = Cleaned Meter Gluc POC Comment 2) [place] 557132-12-08 17:20:00 Test Item Value Reference Range Interpretation Comments Glucose POC (test code = Glucose POC) 114 70-99 [place] [address]-12-08 17:20:00 Test Item Value Reference Range Interpretation Comments Gluc POC Comment 1 (test code Notified RN/MD = Gluc POC Comment 1) [place] 557132-12-08 17:20:00 Test Item Value Reference Range Interpretation Comments Gluc POC Comment 2 (test code = Cleaned Meter Gluc POC Comment 2) [place] 841722-12-08 16:09:00 Test Item Value Reference Range Interpretation Comments Glucose Lvl (test code = Glucose Lvl) 140 70-99 [facility]2022-12-08 16:09:00 Test Item Value Reference Range Interpretation Comments BUN (test code = BUN) 26 7-22 [facility]2022-12-08 16:09:00 Test Item Value Reference Range Interpretation Comments Creatinine Lvl (test code = Creatinine 5.82 0.50-1.40 Lvl) [facility]2022-12-08 16:09:00 Test Item Value Reference Range Interpretation Comments Sodium Lvl (test code = Sodium Lvl) 135 135-145 [facility]2022-12-08 16:09:00 Test Item Value Reference Range Interpretation Comments Potassium Lvl (test code = Potassium 3.0 3.5-5.1 Lvl) [facility]2022-12-08 16:09:00 Test Item Value Reference Range Interpretation Comments Chloride Lvl (test code = Chloride Lvl) 100 95-109 [facility]2022-12-08 16:09:00 Test Item Value Reference Range Interpretation Comments CO2 (test code = CO2) 26 24-32 [place] 841722-12-08 16:09:00 Test Item Value Reference Range Interpretation Comments AGAP (test code = AGAP) 12.0 10.0-20.0 [place] 841722-12-08 16:09:00 Test Item Value Reference Range Interpretation Comments Calcium Lvl (test code = Calcium Lvl) 8.1 8.5-10.5 [facility]2022-12-08 16:09:00 Test Item Value Reference Range Interpretation Comments B/C Ratio (test code = B/C Ratio) 4 1 6-25 [place] 841722-12-08 16:09:00 Test Item Value Reference Range Interpretation Comments Total Protein (test code = Total 6.3 6.4-8.4 Protein) [place] 841722-12-08 16:09:00 Test Item Value Reference Range Interpretation Comments Albumin Lvl (test code = Albumin Lvl) 2.3 3.5-5.0 [place] 841722-12-08 16:09:00 Test Item Value Reference Range Interpretation Comments Globulin (test code = Globulin) 4.0 2.7-4.2 [place] [address]-12-08 16:09:00 Test Item Value Reference Range Interpretation Comments A/G Ratio (test code = A/G Ratio) 0.6 1 0.7-1.6 [place] [address]-12-08 16:09:00 Test Item Value Reference Range Interpretation Comments ALT (test code = ALT) no gt See_Comment [Auto mated message] The system which ge nerated this result transmit sally reference range : <=65. The reference range was not used to interpr et this result as henrry l/abnormal. [place] [address]-12-08 16:09:00 Test Item Value Reference Range Interpretation Comments AST (test code = AST) 11 See_Comment [Auto mated message] The system which ge nerated this result transmit sally reference range : <=37. The reference range was not used to interpr et this result as henrry l/abnormal. [place] [address]-12-08 16:09:00 Test Item Value Reference Range Interpretation Comments Alk Phos (test code = Alk Phos) 92 39-136 [place] 841722-12-08 16:09:00 Test Item Value Reference Range Interpretation Comments Bili Total (test code = Bili Total) 0.5 0.2-1.3 [place] [address]-12-08 16:09:00 Test Item Value Reference Range Interpretation Comments eGFR (test code = eGFR) 8 [place] [address]-12-08 16:09:00 Test Item Value Reference Range Interpretation Comments Magnesium Lvl (test code = Magnesium 2.5 1.8-2.4 Lvl) [place] 462112-12-08 16:09:00 Test Item Value Reference Range Interpretation Comments Glucose Lvl (test code = Glucose Lvl) 140 70-99 [place] [address]-12-08 16:09:00 Test Item Value Reference Range Interpretation Comments BUN (test code = BUN) 26 7-22 [place] [address]-12-08 16:09:00 Test Item Value Reference Range Interpretation Comments Creatinine Lvl (test code = Creatinine 5.82 0.50-1.40 Lvl) [place] [address]-12-08 16:09:00 Test Item Value Reference Range Interpretation Comments Sodium Lvl (test code = Sodium Lvl) 135 135-145 [facility]XkqnyxzEVNJOMOEE3890-55-26 16:09:00 Test Item Value Reference Range Interpretation Comments Potassium Lvl (test code = Potassium 3.0 3.5-5.1 Lvl) [facility] HospitalHtyfczhBLWDSIKUF2889-35-90 16:09:00 Test Item Value Reference Range Interpretation Comments Chloride Lvl (test code = Chloride Lvl) 100 95-109 [facility] HospitalBnkupqoZTUISZEPA6044-15-40 16:09:00 Test Item Value Reference Range Interpretation Comments CO2 (test code = CO2) 26 24-32 [facility] HospitalYelxlxqAGWJVVLRS4095-90-64 16:09:00 Test Item Value Reference Range Interpretation Comments AGAP (test code = AGAP) 12.0 10.0-20.0 [facility] HospitalKyhxtwiLAMWFGEVR2755-02-00 16:09:00 Test Item Value Reference Range Interpretation Comments Calcium Lvl (test code = Calcium Lvl) 8.1 8.5-10.5 [facility]XqtdjysTBZXXHQVC5889-22-44 16:09:00 Test Item Value Reference Range Interpretation Comments B/C Ratio (test code = B/C Ratio) 4 1 6-25 [facility] HospitalFoibbyaDIRNBZNCE9188-62-47 16:09:00 Test Item Value Reference Range Interpretation Comments Total Protein (test code = Total 6.3 6.4-8.4 Protein) [facility] HospitalDldzudjBUZFMLBRC7639-72-33 16:09:00 Test Item Value Reference Range Interpretation Comments Albumin Lvl (test code = Albumin Lvl) 2.3 3.5-5.0 [facility] HospitalCuuteaeLEXQVCQBL6199-42-56 16:09:00 Test Item Value Reference Range Interpretation Comments Globulin (test code = Globulin) 4.0 2.7-4.2 [place] [address]-12-08 16:09:00 Test Item Value Reference Range Interpretation Comments A/G Ratio (test code = A/G Ratio) 0.6 1 0.7-1.6 [place] 462112-12-08 16:09:00 Test Item Value Reference Range Interpretation Comments ALT (test code = ALT) no gt See_Comment [Auto mated message] The system which ge nerated this result transmit sally reference range : <=65. The reference range was not used to interpr et this result as henrry l/abnormal. [facility] HospitalSddctptOYZHJUEJR6474-95-79 16:09:00 Test Item Value Reference Range Interpretation Comments AST (test code = AST) 11 See_Comment [Auto mated message] The system which ge nerated this result transmit sally reference range : <=37. The reference range was not used to interpr et this result as henrry l/abnormal. [facility] HospitalCgoeaciBLNYJONKD9189-93-57 16:09:00 Test Item Value Reference Range Interpretation Comments Alk Phos (test code = Alk Phos) 92 39-136 [facility] HospitalDnxekrzRBUKMVDVJ6182-43-60 16:09:00 Test Item Value Reference Range Interpretation Comments Bili Total (test code = Bili Total) 0.5 0.2-1.3 [facility] HospitalSahnvrlHDPMZYVBW9595-11-62 16:09:00 Test Item Value Reference Range Interpretation Comments eGFR (test code = eGFR) 8 [facility] HospitalLpcvndwAVJHQBENW5668-39-58 16:09:00 Test Item Value Reference Range Interpretation Comments Magnesium Lvl (test code = Magnesium 2.5 1.8-2.4 Lvl) [facility]kinUucmdayUEKCAMXRCK4730-79-56 16:09:00 Test Item Value Reference Range Interpretation Comments Segs (test code = Segs) 50.9 45.0-75.0 [facility]ufkinRkkdoykSUEAEEPWRH5386-57-20 16:09:00 Test Item Value Reference Range Interpretation Comments Lymphocytes (test code = Lymphocytes) 39.1 20.0-40.0 [place] 740132-12-08 16:09:00 Test Item Value Reference Range Interpretation Comments Monocytes (test code = Monocytes) 6.6 2.0-12.0 [place] [address]-12-08 16:09:00 Test Item Value Reference Range Interpretation Comments Eosinophils (test code = 2.2 See_Comment [A utomated message] The Eosinophils) system which ge nerated this result tra nsmitted reference range : <=4.0. The reference r calli was not used to int erpret this result as normal/abnormal . [facility]kinGeboafpESONVZAZFM4352-99-82 16:09:00 Test Item Value Reference Range Interpretation Comments Basophils (test code = 1.2 See_Comment [Aut omated message] The Basophils) system which ge nerated this result tra nsmitted reference range : <=1.0. The reference r calli was not used to int erpret this result as normal/abnormal . [place] [address]-12-08 16:09:00 Test Item Value Reference Range Interpretation Comments Neutrophils # (test code = Neutrophils 2.1 1.5-8.1 #) [place] 740132-12-08 16:09:00 Test Item Value Reference Range Interpretation Comments Lymphocytes # (test code = Lymphocytes 1.6 1.0-5.5 #) [place] [address]-12-08 16:09:00 Test Item Value Reference Range Interpretation Comments Monocytes # (test code 0.3 See_Comment [Aut omated message] The = Monocytes #) system which generated this result tra nsmitted reference range : <=0.8. The reference r calli was not used to int erpret this result as normal/abnormal . [place] [address]-12-08 16:09:00 Test Item Value Reference Range Interpretation Comments Eosinophils # (test code 0.1 See_Comment [A utomated message] The = Eosinophils #) system whic h generated this result tra nsmitted reference range : <=0.5. The reference r calli was not used to int erpret this result as normal/abnormal . [place] 740132-12-08 16:09:00 Test Item Value Reference Range Interpretation Comments Basophils # (test code 0.1 See_Comment [Aut omated message] The = Basophils #) system which generated this result tra nsmitted reference range : <=0.2. The reference r calli was not used to int erpret this result as normal/abnormal . [place] 740132-12-08 16:09:00 Test Item Value Reference Range Interpretation Comments WBC (test code = WBC) 4.1 3.7-10.4 [place] [address]-12-08 16:09:00 Test Item Value Reference Range Interpretation Comments RBC (test code = RBC) 2.88 4.20-5.40 [place] [address]-12-08 16:09:00 Test Item Value Reference Range Interpretation Comments Hgb (test code = Hgb) 9.8 12.0-16.0 [place] [address]-12-08 16:09:00 Test Item Value Reference Range Interpretation Comments Hct (test code = Hct) 29.7 36.0-48.0 [facility]kinDlzmiykZPVGFVVXPV4229-10-54 16:09:00 Test Item Value Reference Range Interpretation Comments MCV (test code = MCV) 103.4 80.0-98.0 [facility]ufkinDuqpslwZMIESSZOZK7382-24-14 16:09:00 Test Item Value Reference Range Interpretation Comments MCH (test code = MCH) 34.0 pg 27.0-31.0 [facility]ufkinHseeyhjMIGBEXPRXO3825-78-43 16:09:00 Test Item Value Reference Range Interpretation Comments MCHC (test code = MCHC) 32.9 32.0-36.0 [facility] LufkinSquxannIOLTWIRYTW3882-58-00 16:09:00 Test Item Value Reference Range Interpretation Comments RDW (test code = RDW) 17.5 11.5-14.5 [facility]ufkinFkgncbgHMSGNUEGHJ0340-92-83 16:09:00 Test Item Value Reference Range Interpretation Comments Platelet (test code = Platelet) 253 133-450 [facility]ufkinKxdjxeaTGDOOIMXWA1006-35-71 16:09:00 Test Item Value Reference Range Interpretation Comments MPV (test code = MPV) 7.8 7.4-10.4 [facility]ufkinNeeuxxnRUMKGNVJQZ4873-95-19 16:09:00 Test Item Value Reference Range Interpretation Comments Segs (test code = Segs) 50.9 45.0-75.0 [facility]ufkinAsmtldwNWZXNEVWCG3015-77-65 16:09:00 Test Item Value Reference Range Interpretation Comments Lymphocytes (test code = Lymphocytes) 39.1 20.0-40.0 [place] 740132-12-08 16:09:00 Test Item Value Reference Range Interpretation Comments Monocytes (test code = Monocytes) 6.6 2.0-12.0 [place] 740132-12-08 16:09:00 Test Item Value Reference Range Interpretation Comments Eosinophils (test code = 2.2 See_Comment [A utomated message] The Eosinophils) system which ge nerated this result tra nsmitted reference range : <=4.0. The reference r calli was not used to int erpret this result as normal/abnormal . [place] 740132-12-08 16:09:00 Test Item Value Reference Range Interpretation Comments Basophils (test code = 1.2 See_Comment [Aut omated message] The Basophils) system which ge nerated this result tra nsmitted reference range : <=1.0. The reference r calli was not used to int erpret this result as normal/abnormal . [place] 740132-12-08 16:09:00 Test Item Value Reference Range Interpretation Comments Neutrophils # (test code = Neutrophils 2.1 1.5-8.1 #) [facility]kinDjbprwdHCOLATFDDX9654-19-87 16:09:00 Test Item Value Reference Range Interpretation Comments Lymphocytes # (test code = Lymphocytes 1.6 1.0-5.5 #) [place] [address]-12-08 16:09:00 Test Item Value Reference Range Interpretation Comments Monocytes # (test code 0.3 See_Comment [Aut omated message] The = Monocytes #) system which generated this result tra nsmitted reference range : <=0.8. The reference r calli was not used to int erpret this result as normal/abnormal . [place] 740132-12-08 16:09:00 Test Item Value Reference Range Interpretation Comments Eosinophils # (test code 0.1 See_Comment [A utomated message] The = Eosinophils #) system whic h generated this result tra nsmitted reference range : <=0.5. The reference r calli was not used to int erpret this result as normal/abnormal . [facility]ufkinBkedlggJNDIKFEHAL2752-63-28 16:09:00 Test Item Value Reference Range Interpretation Comments Basophils # (test code 0.1 See_Comment [Aut omated message] The = Basophils #) system which generated this result tra nsmitted reference range : <=0.2. The reference r calli was not used to int erpret this result as normal/abnormal . [facility]kinUazijfrGSWIMPGCJN9843-85-76 16:09:00 Test Item Value Reference Range Interpretation Comments WBC (test code = WBC) 4.1 3.7-10.4 [place] 740132-12-08 16:09:00 Test Item Value Reference Range Interpretation Comments RBC (test code = RBC) 2.88 4.20-5.40 [place] [address]-12-08 16:09:00 Test Item Value Reference Range Interpretation Comments Hgb (test code = Hgb) 9.8 12.0-16.0 [place] [address]-12-08 16:09:00 Test Item Value Reference Range Interpretation Comments Hct (test code = Hct) 29.7 36.0-48.0 [place] 740132-12-08 16:09:00 Test Item Value Reference Range Interpretation Comments MCV (test code = MCV) 103.4 80.0-98.0 [place] [address]-12-08 16:09:00 Test Item Value Reference Range Interpretation Comments MCH (test code = MCH) 34.0 pg 27.0-31.0 [place] [address]-12-08 16:09:00 Test Item Value Reference Range Interpretation Comments MCHC (test code = MCHC) 32.9 32.0-36.0 [place] 740132-12-08 16:09:00 Test Item Value Reference Range Interpretation Comments RDW (test code = RDW) 17.5 11.5-14.5 [place] 740132-12-08 16:09:00 Test Item Value Reference Range Interpretation Comments Platelet (test code = Platelet) 253 133-450 [place] 740132-12-08 16:09:00 Test Item Value Reference Range Interpretation Comments MPV (test code = MPV) 7.8 7.4-10.4 [facility]2022-12-08 16:09:00 Test Item Value Reference Range Interpretation Comments Glucose Lvl (test code = Glucose Lvl) 140 70-99 [place] 841722-12-08 16:09:00 Test Item Value Reference Range Interpretation Comments BUN (test code = BUN) 26 7-22 [place] 841722-12-08 16:09:00 Test Item Value Reference Range Interpretation Comments Creatinine Lvl (test code = Creatinine 5.82 0.50-1.40 Lvl) [place] 841722-12-08 16:09:00 Test Item Value Reference Range Interpretation Comments Sodium Lvl (test code = Sodium Lvl) 135 135-145 [place] 841722-12-08 16:09:00 Test Item Value Reference Range Interpretation Comments Potassium Lvl (test code = Potassium 3.0 3.5-5.1 Lvl) [place] 841722-12-08 16:09:00 Test Item Value Reference Range Interpretation Comments Chloride Lvl (test code = Chloride Lvl) 100 95-109 [facility]2022-12-08 16:09:00 Test Item Value Reference Range Interpretation Comments CO2 (test code = CO2) 26 24-32 [place] 841722-12-08 16:09:00 Test Item Value Reference Range Interpretation Comments AGAP (test code = AGAP) 12.0 10.0-20.0 [place] 841722-12-08 16:09:00 Test Item Value Reference Range Interpretation Comments Calcium Lvl (test code = Calcium Lvl) 8.1 8.5-10.5 [place] 841722-12-08 16:09:00 Test Item Value Reference Range Interpretation Comments B/C Ratio (test code = B/C Ratio) 4 1 6-25 [place] [address]-12-08 16:09:00 Test Item Value Reference Range Interpretation Comments Total Protein (test code = Total 6.3 6.4-8.4 Protein) [place] 841722-12-08 16:09:00 Test Item Value Reference Range Interpretation Comments Albumin Lvl (test code = Albumin Lvl) 2.3 3.5-5.0 [place] 841722-12-08 16:09:00 Test Item Value Reference Range Interpretation Comments Globulin (test code = Globulin) 4.0 2.7-4.2 [place] 841722-12-08 16:09:00 Test Item Value Reference Range Interpretation Comments A/G Ratio (test code = A/G Ratio) 0.6 1 0.7-1.6 [place] 841722-12-08 16:09:00 Test Item Value Reference Range Interpretation Comments ALT (test code = ALT) no gt See_Comment [Auto mated message] The system which ge nerated this result transmit sally reference range : <=65. The reference range was not used to interpr et this result as henrry l/abnormal. [facility] NZNTA1205-[facility] 16:09:00 Test Item Value Reference Range Interpretation Comments AST (test code = AST) 11 See_Comment [Auto mated message] The system which ge nerated this result transmit sally reference range : <=37. The reference range was not used to interpr et this result as henrry l/abnormal. [facility]annCON[facility] HOSPITALJTADQ5679-96-34 16:09:00 Test Item Value Reference Range Interpretation Comments Alk Phos (test code = Alk Phos) 92 39-136 [facility]2022-12-08 16:09:00 Test Item Value Reference Range Interpretation Comments Bili Total (test code = Bili Total) 0.5 0.2-1.3 [facility]2022-12-08 16:09:00 Test Item Value Reference Range Interpretation Comments eGFR (test code = eGFR) 8 [place] 841722-12-08 16:09:00 Test Item Value Reference Range Interpretation Comments Magnesium Lvl (test code = Magnesium 2.5 1.8-2.4 Lvl) [place] 462112-12-08 16:09:00 Test Item Value Reference Range Interpretation Comments Glucose Lvl (test code = Glucose Lvl) 140 70-99 [place] [address]-12-08 16:09:00 Test Item Value Reference Range Interpretation Comments BUN (test code = BUN) 26 7-22 [place] 462112-12-08 16:09:00 Test Item Value Reference Range Interpretation Comments Creatinine Lvl (test code = Creatinine 5.82 0.50-1.40 Lvl) [place] 462112-12-08 16:09:00 Test Item Value Reference Range Interpretation Comments Sodium Lvl (test code = Sodium Lvl) 135 135-145 [facility] HospitalHcyinxyVVTGRPSYF4206-80-09 16:09:00 Test Item Value Reference Range Interpretation Comments Potassium Lvl (test code = Potassium 3.0 3.5-5.1 Lvl) [place] 462112-12-08 16:09:00 Test Item Value Reference Range Interpretation Comments Chloride Lvl (test code = Chloride Lvl) 100 95-109 [place] 462112-12-08 16:09:00 Test Item Value Reference Range Interpretation Comments CO2 (test code = CO2) 26 24-32 [place] 462112-12-08 16:09:00 Test Item Value Reference Range Interpretation Comments AGAP (test code = AGAP) 12.0 10.0-20.0 [place] [address]-12-08 16:09:00 Test Item Value Reference Range Interpretation Comments Calcium Lvl (test code = Calcium Lvl) 8.1 8.5-10.5 [facility] HospitalAljxnxuMWLNZXWLZ8274-91-64 16:09:00 Test Item Value Reference Range Interpretation Comments B/C Ratio (test code = B/C Ratio) 4 1 6-25 [facility] HospitalBxauqwxODBTJEWMT0850-95-21 16:09:00 Test Item Value Reference Range Interpretation Comments Total Protein (test code = Total 6.3 6.4-8.4 Protein) [facility] HospitalMszsqemJPGDTUPPO1369-52-42 16:09:00 Test Item Value Reference Range Interpretation Comments Albumin Lvl (test code = Albumin Lvl) 2.3 3.5-5.0 [facility] HospitalPbzwwosNTOCHNJHW0560-94-85 16:09:00 Test Item Value Reference Range Interpretation Comments Globulin (test code = Globulin) 4.0 2.7-4.2 [facility] HospitalAqqzylbNTQNJEXDY1516-62-05 16:09:00 Test Item Value Reference Range Interpretation Comments A/G Ratio (test code = A/G Ratio) 0.6 1 0.7-1.6 [facility] HospitalUqomsfqOYLXFZUUT8222-97-65 16:09:00 Test Item Value Reference Range Interpretation Comments ALT (test code = ALT) no gt See_Comment [Auto mated message] The system which ge nerated this result transmit sally reference range : <=65. The reference range was not used to interpr et this result as henrry l/abnormal. [facility] HospitalJlrnyuvQCCJZJQOY2302-29-33 16:09:00 Test Item Value Reference Range Interpretation Comments AST (test code = AST) 11 See_Comment [Auto mated message] The system which ge nerated this result transmit sally reference range : <=37. The reference range was not used to interpr et this result as henrry l/abnormal. [facility] HospitalJsokjdjGRSTFETLU1694-45-83 16:09:00 Test Item Value Reference Range Interpretation Comments Alk Phos (test code = Alk Phos) 92 39-136 [facility] HospitalPgqzozuJVGOYLVQW8566-09-93 16:09:00 Test Item Value Reference Range Interpretation Comments Bili Total (test code = Bili Total) 0.5 0.2-1.3 [facility] HospitalBywxgiyMGSRUXPKV9008-67-20 16:09:00 Test Item Value Reference Range Interpretation Comments eGFR (test code = eGFR) 8 [facility] HospitalSsgkaigBJFOCKAOP7596-83-32 16:09:00 Test Item Value Reference Range Interpretation Comments Magnesium Lvl (test code = Magnesium 2.5 1.8-2.4 Lvl) [facility]kinRdjzwqrTMORGYXQYO4121-31-32 16:09:00 Test Item Value Reference Range Interpretation Comments Segs (test code = Segs) 50.9 45.0-75.0 [place] 740132-12-08 16:09:00 Test Item Value Reference Range Interpretation Comments Lymphocytes (test code = Lymphocytes) 39.1 20.0-40.0 [place] 740132-12-08 16:09:00 Test Item Value Reference Range Interpretation Comments Monocytes (test code = Monocytes) 6.6 2.0-12.0 [facility]ufkinYoqdrzgBEYBKPPQFQ1525-20-94 16:09:00 Test Item Value Reference Range Interpretation Comments Eosinophils (test code = 2.2 See_Comment [A utomated message] The Eosinophils) system which ge nerated this result tra nsmitted reference range : <=4.0. The reference r calli was not used to int erpret this result as normal/abnormal . [facility]ufkinVgjrevkIZFWJGEVUD1651-51-53 16:09:00 Test Item Value Reference Range Interpretation Comments Basophils (test code = 1.2 See_Comment [Aut omated message] The Basophils) system which ge nerated this result tra nsmitted reference range : <=1.0. The reference r calli was not used to int erpret this result as normal/abnormal . [facility]ufkinLjjmiarVKPUAQUCWX5262-49-14 16:09:00 Test Item Value Reference Range Interpretation Comments Neutrophils # (test code = Neutrophils 2.1 1.5-8.1 #) [facility]ufkinBpwbqsuAWQGDYEPCY1039-62-48 16:09:00 Test Item Value Reference Range Interpretation Comments Lymphocytes # (test code = Lymphocytes 1.6 1.0-5.5 #) [place] 740132-12-08 16:09:00 Test Item Value Reference Range Interpretation Comments Monocytes # (test code 0.3 See_Comment [Aut omated message] The = Monocytes #) system which generated this result tra nsmitted reference range : <=0.8. The reference r calli was not used to int erpret this result as normal/abnormal . [facility]ufkinJdjcmpgHFCGZHAOUT5497-36-29 16:09:00 Test Item Value Reference Range Interpretation Comments Eosinophils # (test code 0.1 See_Comment [A utomated message] The = Eosinophils #) system whic h generated this result tra nsmitted reference range : <=0.5. The reference r calli was not used to int erpret this result as normal/abnormal . [place] 740132-12-08 16:09:00 Test Item Value Reference Range Interpretation Comments Basophils # (test code 0.1 See_Comment [Aut omated message] The = Basophils #) system which generated this result tra nsmitted reference range : <=0.2. The reference r calli was not used to int erpret this result as normal/abnormal . [place] 740132-12-08 16:09:00 Test Item Value Reference Range Interpretation Comments WBC (test code = WBC) 4.1 3.7-10.4 [place] [address]-12-08 16:09:00 Test Item Value Reference Range Interpretation Comments RBC (test code = RBC) 2.88 4.20-5.40 [place] [address]-12-08 16:09:00 Test Item Value Reference Range Interpretation Comments Hgb (test code = Hgb) 9.8 12.0-16.0 [place] [address]-12-08 16:09:00 Test Item Value Reference Range Interpretation Comments Hct (test code = Hct) 29.7 36.0-48.0 [place] [address]-12-08 16:09:00 Test Item Value Reference Range Interpretation Comments MCV (test code = MCV) 103.4 80.0-98.0 [place] [address]-12-08 16:09:00 Test Item Value Reference Range Interpretation Comments MCH (test code = MCH) 34.0 pg 27.0-31.0 [place] [address]-12-08 16:09:00 Test Item Value Reference Range Interpretation Comments MCHC (test code = MCHC) 32.9 32.0-36.0 [place] [address]-12-08 16:09:00 Test Item Value Reference Range Interpretation Comments RDW (test code = RDW) 17.5 11.5-14.5 [place] [address]-12-08 16:09:00 Test Item Value Reference Range Interpretation Comments Platelet (test code = Platelet) 253 133-450 [place] 740132-12-08 16:09:00 Test Item Value Reference Range Interpretation Comments MPV (test code = MPV) 7.8 7.4-10.4 [place] 740132-12-08 16:09:00 Test Item Value Reference Range Interpretation Comments Segs (test code = Segs) 50.9 45.0-75.0 [facility]ufkinBqxmlzqLBOSJKHFRH8495-55-19 16:09:00 Test Item Value Reference Range Interpretation Comments Lymphocytes (test code = Lymphocytes) 39.1 20.0-40.0 [place] 740132-12-08 16:09:00 Test Item Value Reference Range Interpretation Comments Monocytes (test code = Monocytes) 6.6 2.0-12.0 [facility] LufkinYimeercVLIZSYCXPY9505-73-39 16:09:00 Test Item Value Reference Range Interpretation Comments Eosinophils (test code = 2.2 See_Comment [A utomated message] The Eosinophils) system which ge nerated this result tra nsmitted reference range : <=4.0. The reference r calli was not used to int erpret this result as normal/abnormal . [facility]ufkinPfjuylhIFXMHHMXOA3166-85-16 16:09:00 Test Item Value Reference Range Interpretation Comments Basophils (test code = 1.2 See_Comment [Aut omated message] The Basophils) system which ge nerated this result tra nsmitted reference range : <=1.0. The reference r calli was not used to int erpret this result as normal/abnormal . [facility]ufkinLqjdqzaLOIHHXDZII5665-03-30 16:09:00 Test Item Value Reference Range Interpretation Comments Neutrophils # (test code = Neutrophils 2.1 1.5-8.1 #) [place] 740132-12-08 16:09:00 Test Item Value Reference Range Interpretation Comments Lymphocytes # (test code = Lymphocytes 1.6 1.0-5.5 #) [place] 740132-12-08 16:09:00 Test Item Value Reference Range Interpretation Comments Monocytes # (test code 0.3 See_Comment [Aut omated message] The = Monocytes #) system which generated this result tra nsmitted reference range : <=0.8. The reference r calli was not used to int erpret this result as normal/abnormal . [place] [address]-12-08 16:09:00 Test Item Value Reference Range Interpretation Comments Eosinophils # (test code 0.1 See_Comment [A utomated message] The = Eosinophils #) system whic h generated this result tra nsmitted reference range : <=0.5. The reference r calli was not used to int erpret this result as normal/abnormal . [facility]ufkinGrtbrcxXGUJXAZCNI5894-04-80 16:09:00 Test Item Value Reference Range Interpretation Comments Basophils # (test code 0.1 See_Comment [Aut omated message] The = Basophils #) system which generated this result tra nsmitted reference range : <=0.2. The reference r calli was not used to int erpret this result as normal/abnormal . [facility]ufkinLlbfykvZEKHIDJCEE4448-67-71 16:09:00 Test Item Value Reference Range Interpretation Comments WBC (test code = WBC) 4.1 3.7-10.4 [place] 740132-12-08 16:09:00 Test Item Value Reference Range Interpretation Comments RBC (test code = RBC) 2.88 4.20-5.40 [place] 740132-12-08 16:09:00 Test Item Value Reference Range Interpretation Comments Hgb (test code = Hgb) 9.8 12.0-16.0 [place] 740132-12-08 16:09:00 Test Item Value Reference Range Interpretation Comments Hct (test code = Hct) 29.7 36.0-48.0 [place] 740132-12-08 16:09:00 Test Item Value Reference Range Interpretation Comments MCV (test code = MCV) 103.4 80.0-98.0 [place] 740132-12-08 16:09:00 Test Item Value Reference Range Interpretation Comments MCH (test code = MCH) 34.0 pg 27.0-31.0 [place] 740132-12-08 16:09:00 Test Item Value Reference Range Interpretation Comments MCHC (test code = MCHC) 32.9 32.0-36.0 [place] [address]-12-08 16:09:00 Test Item Value Reference Range Interpretation Comments RDW (test code = RDW) 17.5 11.5-14.5 [place] 740132-12-08 16:09:00 Test Item Value Reference Range Interpretation Comments Platelet (test code = Platelet) 253 133-450 [facility]ly[facility]FSGS[facility]ADFS1557[facility]78-47 16:09:00 Test Item Value Reference Range Interpretation Comments MPV (test code = MPV) 7.8 7.4-10.4 [place] 841722-12-08 16:09:00 Test Item Value Reference Range Interpretation Comments Glucose Lvl (test code = Glucose Lvl) 140 70-99 [facility]2022-12-08 16:09:00 Test Item Value Reference Range Interpretation Comments BUN (test code = BUN) 26 7-22 [facility]2022-12-08 16:09:00 Test Item Value Reference Range Interpretation Comments Creatinine Lvl (test code = Creatinine 5.82 0.50-1.40 Lvl) [facility]2022-12-08 16:09:00 Test Item Value Reference Range Interpretation Comments Sodium Lvl (test code = Sodium Lvl) 135 135-145 [facility]2022-12-08 16:09:00 Test Item Value Reference Range Interpretation Comments Potassium Lvl (test code = Potassium 3.0 3.5-5.1 Lvl) [facility]2022-12-08 16:09:00 Test Item Value Reference Range Interpretation Comments Chloride Lvl (test code = Chloride Lvl) 100 95-109 [facility]2022-12-08 16:09:00 Test Item Value Reference Range Interpretation Comments CO2 (test code = CO2) 26 24-32 [place] 841722-12-08 16:09:00 Test Item Value Reference Range Interpretation Comments AGAP (test code = AGAP) 12.0 10.0-20.0 [place] 841722-12-08 16:09:00 Test Item Value Reference Range Interpretation Comments Calcium Lvl (test code = Calcium Lvl) 8.1 8.5-10.5 [place] 841722-12-08 16:09:00 Test Item Value Reference Range Interpretation Comments B/C Ratio (test code = B/C Ratio) 4 1 6-25 [place] 841722-12-08 16:09:00 Test Item Value Reference Range Interpretation Comments Total Protein (test code = Total 6.3 6.4-8.4 Protein) [place] [address]-12-08 16:09:00 Test Item Value Reference Range Interpretation Comments Albumin Lvl (test code = Albumin Lvl) 2.3 3.5-5.0 [place] 841722-12-08 16:09:00 Test Item Value Reference Range Interpretation Comments Globulin (test code = Globulin) 4.0 2.7-4.2 [place] [address]-12-08 16:09:00 Test Item Value Reference Range Interpretation Comments A/G Ratio (test code = A/G Ratio) 0.6 1 0.7-1.6 [place] [address]-12-08 16:09:00 Test Item Value Reference Range Interpretation Comments ALT (test code = ALT) no gt See_Comment [Auto mated message] The system which ge nerated this result transmit sally reference range : <=65. The reference range was not used to interpr et this result as henrry l/abnormal. [place] 841722-12-08 16:09:00 Test Item Value Reference Range Interpretation Comments AST (test code = AST) 11 See_Comment [Auto mated message] The system which ge nerated this result transmit sally reference range : <=37. The reference range was not used to interpr et this result as henrry l/abnormal. [place] 841722-12-08 16:09:00 Test Item Value Reference Range Interpretation Comments Alk Phos (test code = Alk Phos) 92 39-136 [place] [address]-12-08 16:09:00 Test Item Value Reference Range Interpretation Comments Bili Total (test code = Bili Total) 0.5 0.2-1.3 [place] 841722-12-08 16:09:00 Test Item Value Reference Range Interpretation Comments eGFR (test code = eGFR) 8 [facility] NGPHH0209-75-46 16:09:00 Test Item Value Reference Range Interpretation Comments Magnesium Lvl (test code = Magnesium 2.5 1.8-2.4 Lvl) [place] [address]-12-08 16:09:00 Test Item Value Reference Range Interpretation Comments Glucose Lvl (test code = Glucose Lvl) 140 70-99 [place] [address]-12-08 16:09:00 Test Item Value Reference Range Interpretation Comments BUN (test code = BUN) 26 7-22 [facility]LdvxwmbCIIAUCVYB0640-96-86 16:09:00 Test Item Value Reference Range Interpretation Comments Creatinine Lvl (test code = Creatinine 5.82 0.50-1.40 Lvl) [facility] HospitalIouuocrNICGYIKWZ4525-32-12 16:09:00 Test Item Value Reference Range Interpretation Comments Sodium Lvl (test code = Sodium Lvl) 135 135-145 [facility] HospitalGeietrvRCEMVEIFC9886-82-85 16:09:00 Test Item Value Reference Range Interpretation Comments Potassium Lvl (test code = Potassium 3.0 3.5-5.1 Lvl) [facility] HospitalKiwzehnVAOPABSVB0333-02-24 16:09:00 Test Item Value Reference Range Interpretation Comments Chloride Lvl (test code = Chloride Lvl) 100 95-109 [facility] HospitalKuqmmfnALVWBYPXJ2537-07-62 16:09:00 Test Item Value Reference Range Interpretation Comments CO2 (test code = CO2) 26 24-32 [facility] HospitalUkkrsibYYGFVKWVJ7418-66-38 16:09:00 Test Item Value Reference Range Interpretation Comments AGAP (test code = AGAP) 12.0 10.0-20.0 [facility] HospitalTrdtqtkBLZWWLGUO1680-06-39 16:09:00 Test Item Value Reference Range Interpretation Comments Calcium Lvl (test code = Calcium Lvl) 8.1 8.5-10.5 [facility] HospitalAffzepkSBXGKINJK4257-83-33 16:09:00 Test Item Value Reference Range Interpretation Comments B/C Ratio (test code = B/C Ratio) 4 1 6-25 [facility] HospitalExnchquLOMQEVSGX3128-23-14 16:09:00 Test Item Value Reference Range Interpretation Comments Total Protein (test code = Total 6.3 6.4-8.4 Protein) [facility] HospitalSbqwtjsUICLYUSIG4942-72-66 16:09:00 Test Item Value Reference Range Interpretation Comments Albumin Lvl (test code = Albumin Lvl) 2.3 3.5-5.0 [facility] HospitalAhqbrzvNBGPSTJIY2040-65-17 16:09:00 Test Item Value Reference Range Interpretation Comments Globulin (test code = Globulin) 4.0 2.7-4.2 [facility] HospitalAgnyjnmWVDOPZKVS5316-97-39 16:09:00 Test Item Value Reference Range Interpretation Comments A/G Ratio (test code = A/G Ratio) 0.6 1 0.7-1.6 [facility]evilleEkyydxhOTEVPOKWR3684-90-43 16:09:00 Test Item Value Reference Range Interpretation Comments ALT (test code = ALT) no gt See_Comment [Auto mated message] The system which ge nerated this result transmit sally reference range : <=65. The reference range was not used to interpr et this result as henrry l/abnormal. [facility] BeevilleHitmfrwRAXIOLEOH9999-53-52 16:09:00 Test Item Value Reference Range Interpretation Comments AST (test code = AST) 11 See_Comment [Auto mated message] The system which ge nerated this result transmit sally reference range : <=37. The reference range was not used to interpr et this result as henrry l/abnormal. [facility]evilleQcjbnxfPCOEDJIYX8116-65-10 16:09:00 Test Item Value Reference Range Interpretation Comments Alk Phos (test code = Alk Phos) 92 39-136 [facility] BeevillePvpcdudSZDOEGZIJ4198-53-03 16:09:00 Test Item Value Reference Range Interpretation Comments Bili Total (test code = Bili Total) 0.5 0.2-1.3 [facility]evilleCrkaybbHRJEOWSFW5450-40-19 16:09:00 Test Item Value Reference Range Interpretation Comments eGFR (test code = eGFR) 8 [facility] BeevilleAgopwqtYUAEKQVMD3637-02-08 16:09:00 Test Item Value Reference Range Interpretation Comments Magnesium Lvl (test code = Magnesium 2.5 1.8-2.4 Lvl) [facility]evilleKdcxvyqDLBAUOCSWA3505-69-78 16:09:00 Test Item Value Reference Range Interpretation Comments Segs (test code = Segs) 50.9 45.0-75.0 [facility] BeevilleFgzvvgtRMHREAHHZB3090-99-86 16:09:00 Test Item Value Reference Range Interpretation Comments Lymphocytes (test code = Lymphocytes) 39.1 20.0-40.0 [facility] BeevilleKhxnzwaITDMZZSHWK5939-00-16 16:09:00 Test Item Value Reference Range Interpretation Comments Monocytes (test code = Monocytes) 6.6 2.0-12.0 [facility] BeevilleTsgjdcwVABWFRVMHA6173-21-79 16:09:00 Test Item Value Reference Range Interpretation Comments Eosinophils (test code = 2.2 See_Comment [A utomated message] The Eosinophils) system which ge nerated this result tra nsmitted reference range : <=4.0. The reference r calli was not used to int erpret this result as normal/abnormal . [place] 740132-12-08 16:09:00 Test Item Value Reference Range Interpretation Comments Basophils (test code = 1.2 See_Comment [Aut omated message] The Basophils) system which ge nerated this result tra nsmitted reference range : <=1.0. The reference r calli was not used to int erpret this result as normal/abnormal . [place] 740132-12-08 16:09:00 Test Item Value Reference Range Interpretation Comments Neutrophils # (test code = Neutrophils 2.1 1.5-8.1 #) [facility]PbmwlfjNPHKFFKJQJ0899-68-42 16:09:00 Test Item Value Reference Range Interpretation Comments Lymphocytes # (test code = Lymphocytes 1.6 1.0-5.5 #) [place] 740132-12-08 16:09:00 Test Item Value Reference Range Interpretation Comments Monocytes # (test code 0.3 See_Comment [Aut omated message] The = Monocytes #) system which generated this result tra nsmitted reference range : <=0.8. The reference r calli was not used to int erpret this result as normal/abnormal . [facility]kinXfzfpmeBXZVGQBGTV2730-78-21 16:09:00 Test Item Value Reference Range Interpretation Comments Eosinophils # (test code 0.1 See_Comment [A utomated message] The = Eosinophils #) system whic h generated this result tra nsmitted reference range : <=0.5. The reference r calli was not used to int erpret this result as normal/abnormal . [facility]kinAfbscfbWSEHPHBXRK2320-23-11 16:09:00 Test Item Value Reference Range Interpretation Comments Basophils # (test code 0.1 See_Comment [Aut omated message] The = Basophils #) system which generated this result tra nsmitted reference range : <=0.2. The reference r calli was not used to int erpret this result as normal/abnormal . [facility]ufkinYszyfcbBZWUYLIDQU5045-49-72 16:09:00 Test Item Value Reference Range Interpretation Comments WBC (test code = WBC) 4.1 3.7-10.4 [place] 740132-12-08 16:09:00 Test Item Value Reference Range Interpretation Comments RBC (test code = RBC) 2.88 4.20-5.40 [facility]ufkinOiocvslSBSUJIUXBA5260-67-91 16:09:00 Test Item Value Reference Range Interpretation Comments Hgb (test code = Hgb) 9.8 12.0-16.0 [facility]ufkinVvjinmhVOPPZBNJGU1962-57-60 16:09:00 Test Item Value Reference Range Interpretation Comments Hct (test code = Hct) 29.7 36.0-48.0 [facility]ufkinXjuginmQNPISNMMOK4306-09-18 16:09:00 Test Item Value Reference Range Interpretation Comments MCV (test code = MCV) 103.4 80.0-98.0 [facility] LufkinUabszltQMEJCNWMKG5258-86-26 16:09:00 Test Item Value Reference Range Interpretation Comments MCH (test code = MCH) 34.0 pg 27.0-31.0 [facility] LufkinYzuzazaFGGJLCADSP8362-02-09 16:09:00 Test Item Value Reference Range Interpretation Comments MCHC (test code = MCHC) 32.9 32.0-36.0 [facility]ufkinCxjwaloJBSTJLSCJY3653-05-32 16:09:00 Test Item Value Reference Range Interpretation Comments RDW (test code = RDW) 17.5 11.5-14.5 [facility]ufkinYxhtzxlIRJIGDNHMU4505-04-74 16:09:00 Test Item Value Reference Range Interpretation Comments Platelet (test code = Platelet) 253 133-450 [facility] LufkinLbeynzjGPZJJHEMHZ2398-07-29 16:09:00 Test Item Value Reference Range Interpretation Comments MPV (test code = MPV) 7.8 7.4-10.4 [facility] LufkinVnfclpgQRATSABSUP2375-42-66 16:09:00 Test Item Value Reference Range Interpretation Comments Segs (test code = Segs) 50.9 45.0-75.0 [place] 740132-12-08 16:09:00 Test Item Value Reference Range Interpretation Comments Lymphocytes (test code = Lymphocytes) 39.1 20.0-40.0 [place] 740132-12-08 16:09:00 Test Item Value Reference Range Interpretation Comments Monocytes (test code = Monocytes) 6.6 2.0-12.0 [place] 740132-12-08 16:09:00 Test Item Value Reference Range Interpretation Comments Eosinophils (test code = 2.2 See_Comment [A utomated message] The Eosinophils) system which ge nerated this result tra nsmitted reference range : <=4.0. The reference r calli was not used to int erpret this result as normal/abnormal . [facility]kinIcxrspfXZTKYCICQA1423-16-56 16:09:00 Test Item Value Reference Range Interpretation Comments Basophils (test code = 1.2 See_Comment [Aut omated message] The Basophils) system which ge nerated this result tra nsmitted reference range : <=1.0. The reference r calli was not used to int erpret this result as normal/abnormal . [facility]kinAmvulypPHQGHRCGWI1997-48-12 16:09:00 Test Item Value Reference Range Interpretation Comments Neutrophils # (test code = Neutrophils 2.1 1.5-8.1 #) [facility]kinUugnscxTXAZFLQYBV3636-73-61 16:09:00 Test Item Value Reference Range Interpretation Comments Lymphocytes # (test code = Lymphocytes 1.6 1.0-5.5 #) [facility]kinEyqosbkTZQLOSKURW4217-16-93 16:09:00 Test Item Value Reference Range Interpretation Comments Monocytes # (test code 0.3 See_Comment [Aut omated message] The = Monocytes #) system which generated this result tra nsmitted reference range : <=0.8. The reference r calli was not used to int erpret this result as normal/abnormal . [facility]ufkinBzvinklKCBVZLBQOE7749-26-44 16:09:00 Test Item Value Reference Range Interpretation Comments Eosinophils # (test code 0.1 See_Comment [A utomated message] The = Eosinophils #) system whic h generated this result tra nsmitted reference range : <=0.5. The reference r calli was not used to int erpret this result as normal/abnormal . [facility]ufkinTnnfgnmHBKXZHJHPX5165-38-57 16:09:00 Test Item Value Reference Range Interpretation Comments Basophils # (test code 0.1 See_Comment [Aut omated message] The = Basophils #) system which generated this result tra nsmitted reference range : <=0.2. The reference r calli was not used to int erpret this result as normal/abnormal . [facility]kinPkzkkfqLPQLCSOHZZ2350-51-08 16:09:00 Test Item Value Reference Range Interpretation Comments WBC (test code = WBC) 4.1 3.7-10.4 [facility]ufkinHdmkiayOFZNWYHVRB9359-64-75 16:09:00 Test Item Value Reference Range Interpretation Comments RBC (test code = RBC) 2.88 4.20-5.40 [place] 740132-12-08 16:09:00 Test Item Value Reference Range Interpretation Comments Hgb (test code = Hgb) 9.8 12.0-16.0 [place] [address]-12-08 16:09:00 Test Item Value Reference Range Interpretation Comments Hct (test code = Hct) 29.7 36.0-48.0 [place] 740132-12-08 16:09:00 Test Item Value Reference Range Interpretation Comments MCV (test code = MCV) 103.4 80.0-98.0 [place] 740132-12-08 16:09:00 Test Item Value Reference Range Interpretation Comments MCH (test code = MCH) 34.0 pg 27.0-31.0 [place] [address]-12-08 16:09:00 Test Item Value Reference Range Interpretation Comments MCHC (test code = MCHC) 32.9 32.0-36.0 [place] [address]-12-08 16:09:00 Test Item Value Reference Range Interpretation Comments RDW (test code = RDW) 17.5 11.5-14.5 [place] [address]-12-08 16:09:00 Test Item Value Reference Range Interpretation Comments Platelet (test code = Platelet) 253 133-450 [facility]kinRgcdvzxHZRWHHNACQ4377-92-56 16:09:00 Test Item Value Reference Range Interpretation Comments MPV (test code = MPV) 7.8 7.4-10.4 [facility]2022-12-08 16:09:00 Test Item Value Reference Range Interpretation Comments Glucose Lvl (test code = Glucose Lvl) 140 70-99 [facility]2022-12-08 16:09:00 Test Item Value Reference Range Interpretation Comments BUN (test code = BUN) 26 7-22 [place] 841722-12-08 16:09:00 Test Item Value Reference Range Interpretation Comments Creatinine Lvl (test code = Creatinine 5.82 0.50-1.40 Lvl) [facility]2022-12-08 16:09:00 Test Item Value Reference Range Interpretation Comments Sodium Lvl (test code = Sodium Lvl) 135 135-145 [facility]2022-12-08 16:09:00 Test Item Value Reference Range Interpretation Comments Potassium Lvl (test code = Potassium 3.0 3.5-5.1 Lvl) [facility]2022-12-08 16:09:00 Test Item Value Reference Range Interpretation Comments Chloride Lvl (test code = Chloride Lvl) 100 95-109 [facility]2022-12-08 16:09:00 Test Item Value Reference Range Interpretation Comments CO2 (test code = CO2) 26 24-32 [place] 841722-12-08 16:09:00 Test Item Value Reference Range Interpretation Comments AGAP (test code = AGAP) 12.0 10.0-20.0 [place] 841722-12-08 16:09:00 Test Item Value Reference Range Interpretation Comments Calcium Lvl (test code = Calcium Lvl) 8.1 8.5-10.5 [place] 841722-12-08 16:09:00 Test Item Value Reference Range Interpretation Comments B/C Ratio (test code = B/C Ratio) 4 1 6-25 [place] 841722-12-08 16:09:00 Test Item Value Reference Range Interpretation Comments Total Protein (test code = Total 6.3 6.4-8.4 Protein) [place] 841722-12-08 16:09:00 Test Item Value Reference Range Interpretation Comments Albumin Lvl (test code = Albumin Lvl) 2.3 3.5-5.0 [place] 841722-12-08 16:09:00 Test Item Value Reference Range Interpretation Comments Globulin (test code = Globulin) 4.0 2.7-4.2 [place] 841722-12-08 16:09:00 Test Item Value Reference Range Interpretation Comments A/G Ratio (test code = A/G Ratio) 0.6 1 0.7-1.6 [place] [address]-12-08 16:09:00 Test Item Value Reference Range Interpretation Comments ALT (test code = ALT) no gt See_Comment [Auto mated message] The system which ge nerated this result transmit sally reference range : <=65. The reference range was not used to interpr et this result as henrry l/abnormal. [facility]2022-12-08 16:09:00 Test Item Value Reference Range Interpretation Comments AST (test code = AST) 11 See_Comment [Auto mated message] The system which ge nerated this result transmit sally reference range : <=37. The reference range was not used to interpr et this result as henrry l/abnormal. [facility]2022-12-08 16:09:00 Test Item Value Reference Range Interpretation Comments Alk Phos (test code = Alk Phos) 92 39-136 [facility]2022-12-08 16:09:00 Test Item Value Reference Range Interpretation Comments Bili Total (test code = Bili Total) 0.5 0.2-1.3 [facility]2022-12-08 16:09:00 Test Item Value Reference Range Interpretation Comments eGFR (test code = eGFR) 8 [facility]2022-12-08 16:09:00 Test Item Value Reference Range Interpretation Comments Magnesium Lvl (test code = Magnesium 2.5 1.8-2.4 Lvl) [facility] HospitalRpitsklSSDDYZHSS8361-29-72 16:09:00 Test Item Value Reference Range Interpretation Comments Glucose Lvl (test code = Glucose Lvl) 140 70-99 [facility] HospitalVifebpxNPKZBURNH9715-02-48 16:09:00 Test Item Value Reference Range Interpretation Comments BUN (test code = BUN) 26 7-22 [facility] HospitalAesoggmURRSOBALJ0860-42-91 16:09:00 Test Item Value Reference Range Interpretation Comments Creatinine Lvl (test code = Creatinine 5.82 0.50-1.40 Lvl) [place] 462112-12-08 16:09:00 Test Item Value Reference Range Interpretation Comments Sodium Lvl (test code = Sodium Lvl) 135 135-145 [place] 462112-12-08 16:09:00 Test Item Value Reference Range Interpretation Comments Potassium Lvl (test code = Potassium 3.0 3.5-5.1 Lvl) [facility] HospitalCfvxgbcSHYNKNUSY8038-39-04 16:09:00 Test Item Value Reference Range Interpretation Comments Chloride Lvl (test code = Chloride Lvl) 100 95-109 [place] 462112-12-08 16:09:00 Test Item Value Reference Range Interpretation Comments CO2 (test code = CO2) 26 24-32 [facility] HospitalXepmnqaQJXDHVTWX9050-04-64 16:09:00 Test Item Value Reference Range Interpretation Comments AGAP (test code = AGAP) 12.0 10.0-20.0 [facility] HospitalBbbmnsfTBLYCRVOL6121-88-42 16:09:00 Test Item Value Reference Range Interpretation Comments Calcium Lvl (test code = Calcium Lvl) 8.1 8.5-10.5 [facility] HospitalRoemkxaMRBKLNZTJ8990-31-40 16:09:00 Test Item Value Reference Range Interpretation Comments B/C Ratio (test code = B/C Ratio) 4 1 6-25 [place] [address]-12-08 16:09:00 Test Item Value Reference Range Interpretation Comments Total Protein (test code = Total 6.3 6.4-8.4 Protein) [facility] HospitalVeuzfwjTSGXGDXSW8703-61-00 16:09:00 Test Item Value Reference Range Interpretation Comments Albumin Lvl (test code = Albumin Lvl) 2.3 3.5-5.0 [facility] HospitalQvjmoxaCEIRHEARZ1767-88-08 16:09:00 Test Item Value Reference Range Interpretation Comments Globulin (test code = Globulin) 4.0 2.7-4.2 [facility] HospitalLwldztoHUPSNLELT4100-43-03 16:09:00 Test Item Value Reference Range Interpretation Comments A/G Ratio (test code = A/G Ratio) 0.6 1 0.7-1.6 [facility] HospitalJbuyoplHNFCUGRKG7172-99-89 16:09:00 Test Item Value Reference Range Interpretation Comments ALT (test code = ALT) no gt See_Comment [Auto mated message] The system which nerated this result transmit sally reference range : <=65. The reference range was not used to interpr et this result as henrry l/abnormal. [facility] HospitalPslgmcyWEKDRALCO2385-01-01 16:09:00 Test Item Value Reference Range Interpretation Comments AST (test code = AST) 11 See_Comment [Auto mated message] The system which nerated this result transmit sally reference range : <=37. The reference range was not used to interpr et this result as henrry l/abnormal. [facility] HospitalWudijewRKPQHKVEU2656-44-89 16:09:00 Test Item Value Reference Range Interpretation Comments Alk Phos (test code = Alk Phos) 92 39-136 [facility] HospitalXyqhxniXUZPINDSR0491-45-88 16:09:00 Test Item Value Reference Range Interpretation Comments Bili Total (test code = Bili Total) 0.5 0.2-1.3 [place] 462112-12-08 16:09:00 Test Item Value Reference Range Interpretation Comments eGFR (test code = eGFR) 8 [facility] HospitalXhyfaziKOJHLPGDR2200-27-38 16:09:00 Test Item Value Reference Range Interpretation Comments Magnesium Lvl (test code = Magnesium 2.5 1.8-2.4 Lvl) [facility]kinNughwllSQHEDQFCYX4051-74-59 16:09:00 Test Item Value Reference Range Interpretation Comments Segs (test code = Segs) 50.9 45.0-75.0 [place] 740132-12-08 16:09:00 Test Item Value Reference Range Interpretation Comments Lymphocytes (test code = Lymphocytes) 39.1 20.0-40.0 [place] 740132-12-08 16:09:00 Test Item Value Reference Range Interpretation Comments Monocytes (test code = Monocytes) 6.6 2.0-12.0 [place] 740132-12-08 16:09:00 Test Item Value Reference Range Interpretation Comments Eosinophils (test code = 2.2 See_Comment [A utomated message] The Eosinophils) system which ge nerated this result tra nsmitted reference range : <=4.0. The reference r calli was not used to int erpret this result as normal/abnormal . [facility]kinBqzdivaXRMZYATSYZ3072-25-83 16:09:00 Test Item Value Reference Range Interpretation Comments Basophils (test code = 1.2 See_Comment [Aut omated message] The Basophils) system which ge nerated this result tra nsmitted reference range : <=1.0. The reference r calli was not used to int erpret this result as normal/abnormal . [facility]ufkinBsvteghWBJWCOSESR3767-47-67 16:09:00 Test Item Value Reference Range Interpretation Comments Neutrophils # (test code = Neutrophils 2.1 1.5-8.1 #) [facility]kinBwarjbtQCVJGNTNXG5397-14-35 16:09:00 Test Item Value Reference Range Interpretation Comments Lymphocytes # (test code = Lymphocytes 1.6 1.0-5.5 #) [place] 740132-12-08 16:09:00 Test Item Value Reference Range Interpretation Comments Monocytes # (test code 0.3 See_Comment [Aut omated message] The = Monocytes #) system which generated this result tra nsmitted reference range : <=0.8. The reference r calli was not used to int erpret this result as normal/abnormal . [facility]ufkinViabscfJMCTNCEPLO2540-30-00 16:09:00 Test Item Value Reference Range Interpretation Comments Eosinophils # (test code 0.1 See_Comment [A utomated message] The = Eosinophils #) system whic h generated this result tra nsmitted reference range : <=0.5. The reference r calli was not used to int erpret this result as normal/abnormal . [facility]ZhrjkocZVRLUZDFYK0864-77-19 16:09:00 Test Item Value Reference Range Interpretation Comments Basophils # (test code 0.1 See_Comment [Aut omated message] The = Basophils #) system which generated this result tra nsmitted reference range : <=0.2. The reference r calli was not used to int erpret this result as normal/abnormal . [facility]kinKqljyrlBEFADZKPBD7675-60-40 16:09:00 Test Item Value Reference Range Interpretation Comments WBC (test code = WBC) 4.1 3.7-10.4 [place] 740132-12-08 16:09:00 Test Item Value Reference Range Interpretation Comments RBC (test code = RBC) 2.88 4.20-5.40 [place] 740132-12-08 16:09:00 Test Item Value Reference Range Interpretation Comments Hgb (test code = Hgb) 9.8 12.0-16.0 [place] [address]-12-08 16:09:00 Test Item Value Reference Range Interpretation Comments Hct (test code = Hct) 29.7 36.0-48.0 [place] [address]-12-08 16:09:00 Test Item Value Reference Range Interpretation Comments MCV (test code = MCV) 103.4 80.0-98.0 [place] 740132-12-08 16:09:00 Test Item Value Reference Range Interpretation Comments MCH (test code = MCH) 34.0 pg 27.0-31.0 [place] 740132-12-08 16:09:00 Test Item Value Reference Range Interpretation Comments MCHC (test code = MCHC) 32.9 32.0-36.0 [facility]kinBysfyuxGZCMECKGMY9697-08-86 16:09:00 Test Item Value Reference Range Interpretation Comments RDW (test code = RDW) 17.5 11.5-14.5 [facility]ufkinZwlpeukLAFLZNIOHZ3855-01-00 16:09:00 Test Item Value Reference Range Interpretation Comments Platelet (test code = Platelet) 253 133-450 [facility]ufkinLxwjwcrYDIDNDFMLP1522-16-72 16:09:00 Test Item Value Reference Range Interpretation Comments MPV (test code = MPV) 7.8 7.4-10.4 [facility]kinKvrpprkCQQXHAJBVO1578-32-57 16:09:00 Test Item Value Reference Range Interpretation Comments Segs (test code = Segs) 50.9 45.0-75.0 [place] 740132-12-08 16:09:00 Test Item Value Reference Range Interpretation Comments Lymphocytes (test code = Lymphocytes) 39.1 20.0-40.0 [facility]kinFyxrxgnAKERYEQRQX3418-17-14 16:09:00 Test Item Value Reference Range Interpretation Comments Monocytes (test code = Monocytes) 6.6 2.0-12.0 [facility]kinNjvuzabCQKWRTHXKK2452-41-43 16:09:00 Test Item Value Reference Range Interpretation Comments Eosinophils (test code = 2.2 See_Comment [A utomated message] The Eosinophils) system which ge nerated this result tra nsmitted reference range : <=4.0. The reference r calli was not used to int erpret this result as normal/abnormal . [facility]kinKcneyqnHYLOEALSQU1481-01-15 16:09:00 Test Item Value Reference Range Interpretation Comments Basophils (test code = 1.2 See_Comment [Aut omated message] The Basophils) system which ge nerated this result tra nsmitted reference range : <=1.0. The reference r calli was not used to int erpret this result as normal/abnormal . [facility]kinHijhgcrMANWUNSQTZ5345-02-40 16:09:00 Test Item Value Reference Range Interpretation Comments Neutrophils # (test code = Neutrophils 2.1 1.5-8.1 #) [facility]kinHtaytiqYELFCMZFKX4354-14-69 16:09:00 Test Item Value Reference Range Interpretation Comments Lymphocytes # (test code = Lymphocytes 1.6 1.0-5.5 #) [place] 740132-12-08 16:09:00 Test Item Value Reference Range Interpretation Comments Monocytes # (test code 0.3 See_Comment [Aut omated message] The = Monocytes #) system which generated this result tra nsmitted reference range : <=0.8. The reference r calli was not used to int erpret this result as normal/abnormal . [facility]kinRxydwwrCRUKUAUTZV0182-53-10 16:09:00 Test Item Value Reference Range Interpretation Comments Eosinophils # (test code 0.1 See_Comment [A utomated message] The = Eosinophils #) system whic h generated this result tra nsmitted reference range : <=0.5. The reference r aclli was not used to int erpret this result as normal/abnormal . [facility]kinIwbprvnFPILTEJXCW3714-06-63 16:09:00 Test Item Value Reference Range Interpretation Comments Basophils # (test code 0.1 See_Comment [Aut omated message] The = Basophils #) system which generated this result tra nsmitted reference range : <=0.2. The reference r calli was not used to int erpret this result as normal/abnormal . [facility]kinHrywxecYWIZYWOVZV0238-78-20 16:09:00 Test Item Value Reference Range Interpretation Comments WBC (test code = WBC) 4.1 3.7-10.4 [place] 740132-12-08 16:09:00 Test Item Value Reference Range Interpretation Comments RBC (test code = RBC) 2.88 4.20-5.40 [place] 740132-12-08 16:09:00 Test Item Value Reference Range Interpretation Comments Hgb (test code = Hgb) 9.8 12.0-16.0 [place] 740132-12-08 16:09:00 Test Item Value Reference Range Interpretation Comments Hct (test code = Hct) 29.7 36.0-48.0 [place] [address]-12-08 16:09:00 Test Item Value Reference Range Interpretation Comments MCV (test code = MCV) 103.4 80.0-98.0 [place] [address]-12-08 16:09:00 Test Item Value Reference Range Interpretation Comments MCH (test code = MCH) 34.0 pg 27.0-31.0 [place] 740132-12-08 16:09:00 Test Item Value Reference Range Interpretation Comments MCHC (test code = MCHC) 32.9 32.0-36.0 [facility]kinIzhyygjBTQYZJUVIJ2309-15-04 16:09:00 Test Item Value Reference Range Interpretation Comments RDW (test code = RDW) 17.5 11.5-14.5 [facility]kinJyrnbdeBLRBDGJRUV6473-26-58 16:09:00 Test Item Value Reference Range Interpretation Comments Platelet (test code = Platelet) 253 133-450 [facility]ufkinIcozlrcEACNEQNCSH3894-07-35 16:09:00 Test Item Value Reference Range Interpretation Comments MPV (test code = MPV) 7.8 7.4-10.4 [facility]2022-12-07 19:25:00 Test Item Value Reference Range Interpretation Comments Vitamin B12 Lvl (test code = Vitamin 670 B12 Lvl) [facility]2022-12-07 19:25:00 Test Item Value Reference Range Interpretation Comments Folate Lvl (test code = Folate Lvl) [facility].2 [facility] 19:25:00 Test Item Value Reference Range Interpretation Comments Vitamin B12 Lvl (test code = Vitamin 579 888-2121 B12 Lvl) [facility]GknsszmEKHPVKBYU6879-33-51 19:25:00 Test Item Value Reference Range Interpretation Comments Folate Lvl (test code = Folate Lvl) 15.2 [facility]2022-12-07 19:25:00 Test Item Value Reference Range Interpretation Comments Vitamin B12 Lvl (test code = Vitamin 670 B12 Lvl) [facility]2022-12-07 19:25:00 Test Item Value Reference Range Interpretation Comments Folate Lvl (test code = Folate Lvl) 15.2 [facility]EexjbloUXPKLTBRB4206-93-05 19:25:00 Test Item Value Reference Range Interpretation Comments Vitamin B12 Lvl (test code = Vitamin 467 659-7073 B12 Lvl) [facility]JgqnvqdHSLPNBCDR2557-00-30 19:25:00 Test Item Value Reference Range Interpretation Comments Folate Lvl (test code = Folate Lvl) 15.2 [facility]2022-12-07 19:25:00 Test Item Value Reference Range Interpretation Comments Vitamin B12 Lvl (test code = Vitamin 670 B12 Lvl) [facility]2022-12-07 19:25:00 Test Item Value Reference Range Interpretation Comments Folate Lvl (test code = Folate Lvl) 15.2 [facility] HospitalVvljtfoTNIPBZFDK8122-86-13 19:25:00 Test Item Value Reference Range Interpretation Comments Vitamin B12 Lvl (test code = Vitamin 244 634-2938 B12 Lvl) [facility] HospitalIwcntkpWANYEHSIT4076-46-22 19:25:00 Test Item Value Reference Range Interpretation Comments Folate Lvl (test code = Folate Lvl) 15.2 [facility]2022-12-07 19:25:00 Test Item Value Reference Range Interpretation Comments Vitamin B12 Lvl (test code = Vitamin 670 B12 Lvl) [facility]2022-12-07 19:25:00 Test Item Value Reference Range Interpretation Comments Folate Lvl (test code = Folate Lvl) 15.2 [facility] HospitalHighjprYDAKRQCXQ4985-56-50 19:25:00 Test Item Value Reference Range Interpretation Comments Vitamin B12 Lvl (test code = Vitamin 814 971-7211 B12 Lvl) [facility] HospitalAblqettJDKEDGPZZ0755-60-32 19:25:00 Test Item Value Reference Range Interpretation Comments Folate Lvl (test code = Folate Lvl) 15.2 [facility]: [id number] 12:53:00 Test Item Value Reference Range Interpretation Comments Culture: Blood (test code No Growth At 3 Days = Culture: Blood) [facility]: Apsjq1040-39-05 12:53:00 Test Item Value Reference Range Interpretation Comments Culture: Blood (test code No Growth At 3 Days = Culture: Blood) [facility]: Yicna7198-51-50 12:53:00 Test Item Value Reference Range Interpretation Comments Culture: Blood (test code No Growth At 3 Days = Culture: Blood) [facility]: [id number] 12:53:00 Test Item Value Reference Range Interpretation Comments Culture: Blood (test code No Growth At 3 Days = Culture: Blood) [place] 841722-12-07 09:17:00 Test Item Value Reference Range Interpretation Comments Glucose Lvl (test code = Glucose Lvl) 86 70-99 [place] 841722-12-07 09:17:00 Test Item Value Reference Range Interpretation Comments BUN (test code = BUN) 58 7-22 [place] 841722-12-07 09:17:00 Test Item Value Reference Range Interpretation Comments Creatinine Lvl (test code = Creatinine 7.97 0.50-1.40 Lvl) [place] 841722-12-07 09:17:00 Test Item Value Reference Range Interpretation Comments Sodium Lvl (test code = Sodium Lvl) 134 135-145 [place] [address]-12-07 09:17:00 Test Item Value Reference Range Interpretation Comments Potassium Lvl (test code = Potassium 3.7 3.5-5.1 Lvl) [place]1722-12-07 09:17:00 Test Item Value Reference Range Interpretation Comments Chloride Lvl (test code = Chloride Lvl) 98 95-109 [place] 841722-12-07 09:17:00 Test Item Value Reference Range Interpretation Comments CO2 (test code = CO2) 25 24-32 [place] 841722-12-07 09:17:00 Test Item Value Reference Range Interpretation Comments Calcium Lvl (test code = Calcium Lvl) 8.7 8.5-10.5 [place] 841722-12-07 09:17:00 Test Item Value Reference Range Interpretation Comments AGAP (test code = AGAP) 14.7 10.0-20.0 [place] 841722-12-07 09:17:00 Test Item Value Reference Range Interpretation Comments eGFR (test code = eGFR) 5 [place] 740132-12-07 09:17:00 Test Item Value Reference Range Interpretation Comments Segs (test code = Segs) 61.0 45.0-75.0 [place] [address]-12-07 09:17:00 Test Item Value Reference Range Interpretation Comments Lymphocytes (test code = Lymphocytes) 29.7 20.0-40.0 [place] [address]-12-07 09:17:00 Test Item Value Reference Range Interpretation Comments Monocytes (test code = Monocytes) 6.0 2.0-12.0 [place] [address]-12-07 09:17:00 Test Item Value Reference Range Interpretation Comments Eosinophils (test code = 2.4 See_Comment [A utomated message] The Eosinophils) system which ge nerated this result tra nsmitted reference range : <=4.0. The reference r calli was not used to int erpret this result as normal/abnormal . [place] 740132-12-07 09:17:00 Test Item Value Reference Range Interpretation Comments Basophils (test code = 0.9 See_Comment [Aut omated message] The Basophils) system which ge nerated this result tra nsmitted reference range : <=1.0. The reference r calli was not used to int erpret this result as normal/abnormal . [place]0132-12-07 09:17:00 Test Item Value Reference Range Interpretation Comments Neutrophils # (test code = Neutrophils 2.1 1.5-8.1 #) [facility]HmdtvcxOIUJURAZFI0051-29-21 09:17:00 Test Item Value Reference Range Interpretation Comments Lymphocytes # (test code = Lymphocytes 1.0 1.0-5.5 #) [place] 740132-12-07 09:17:00 Test Item Value Reference Range Interpretation Comments Monocytes # (test code 0.2 See_Comment [Aut omated message] The = Monocytes #) system which generated this result tra nsmitted reference range : <=0.8. The reference r calli was not used to int erpret this result as normal/abnormal . [place]0132-12-07 09:17:00 Test Item Value Reference Range Interpretation Comments Eosinophils # (test code 0.1 See_Comment [A utomated message] The = Eosinophils #) system whic h generated this result tra nsmitted reference range : <=0.5. The reference r calli was not used to int erpret this result as normal/abnormal . [place] 740132-12-07 09:17:00 Test Item Value Reference Range Interpretation Comments WBC (test code = WBC) 3.5 3.7-10.4 [place] [address]-12-07 09:17:00 Test Item Value Reference Range Interpretation Comments RBC (test code = RBC) 2.81 4.20-5.40 [place] 740132-12-07 09:17:00 Test Item Value Reference Range Interpretation Comments Hgb (test code = Hgb) 9.7 12.0-16.0 [place] [address]-12-07 09:17:00 Test Item Value Reference Range Interpretation Comments Hct (test code = Hct) 29.3 36.0-48.0 [facility]kinOqhwuewOBDDUNVOWG4992-56-79 09:17:00 Test Item Value Reference Range Interpretation Comments MCV (test code = MCV) 104.2 80.0-98.0 [place] 740132-12-07 09:17:00 Test Item Value Reference Range Interpretation Comments MCH (test code = MCH) 34.6 pg 27.0-31.0 [place] 740132-12-07 09:17:00 Test Item Value Reference Range Interpretation Comments MCHC (test code = MCHC) 33.2 32.0-36.0 [facility]kinXxqegcuWYUNRWAXYN2371-70-52 09:17:00 Test Item Value Reference Range Interpretation Comments RDW (test code = RDW) 17.5 11.5-14.5 [place] 740132-12-07 09:17:00 Test Item Value Reference Range Interpretation Comments Platelet (test code = Platelet) 287 133-450 [facility]kinTxrfyjvPGWLWCWPDO5402-09-48 09:17:00 Test Item Value Reference Range Interpretation Comments MPV (test code = MPV) 8.4 7.4-10.4 [place] 436282-12-07 09:17:00 Test Item Value Reference Range Interpretation Comments Hep Bs Ag (test code Negative *NA*(03/01/22 = Hep Bs Ag) 3:17 AM) [place] 436282-12-07 09:17:00 Test Item Value Reference Range Interpretation Comments Hep Bs Ag (test code Negative *NA*(03/01/22 = Hep Bs Ag) 3:17 AM) [facility]2022-12-07 09:17:00 Test Item Value Reference Range Interpretation Comments Glucose Lvl (test code = Glucose Lvl) 86 70-99 [facility]2022-12-07 09:17:00 Test Item Value Reference Range Interpretation Comments BUN (test code = BUN) 58 7-22 [place] 841722-12-07 09:17:00 Test Item Value Reference Range Interpretation Comments Creatinine Lvl (test code = Creatinine 7.97 0.50-1.40 Lvl) [place] 841722-12-07 09:17:00 Test Item Value Reference Range Interpretation Comments Sodium Lvl (test code = Sodium Lvl) 134 135-145 [place] [address]-12-07 09:17:00 Test Item Value Reference Range Interpretation Comments Potassium Lvl (test code = Potassium 3.7 3.5-5.1 Lvl) [place] 841722-12-07 09:17:00 Test Item Value Reference Range Interpretation Comments Chloride Lvl (test code = Chloride Lvl) 98 95-109 [place] 841722-12-07 09:17:00 Test Item Value Reference Range Interpretation Comments CO2 (test code = CO2) 25 24-32 [place] [address]-12-07 09:17:00 Test Item Value Reference Range Interpretation Comments Calcium Lvl (test code = Calcium Lvl) 8.7 8.5-10.[address]12-07 09:17:00 Test Item Value Reference Range Interpretation Comments AGAP (test code = AGAP) 14.7 10.0-20.[address]12-07 09:17:00 Test Item Value Reference Range Interpretation Comments eGFR (test code = eGFR) 5 [place] 740132-12-07 09:17:00 Test Item Value Reference Range Interpretation Comments Segs (test code = Segs) 61.0 45.0-75.0 [place] [address]-12-07 09:17:00 Test Item Value Reference Range Interpretation Comments Lymphocytes (test code = Lymphocytes) 29.7 20.0-40.0 [place] [address]-12-07 09:17:00 Test Item Value Reference Range Interpretation Comments Monocytes (test code = Monocytes) 6.0 2.0-12.0 [place] [address]-12-07 09:17:00 Test Item Value Reference Range Interpretation Comments Eosinophils (test code = 2.4 See_Comment [A utomated message] The Eosinophils) system which ge nerated this result tra nsmitted reference range : <=4.0. The reference r calli was not used to int erpret this result as normal/abnormal . [place] [address]-12-07 09:17:00 Test Item Value Reference Range Interpretation Comments Basophils (test code = 0.9 See_Comment [Aut omated message] The Basophils) system which ge nerated this result tra nsmitted reference range : <=1.0. The reference r calli was not used to int erpret this result as normal/abnormal . [place] 740132-12-07 09:17:00 Test Item Value Reference Range Interpretation Comments Neutrophils # (test code = Neutrophils 2.1 1.5-8.1 #) [place] 740132-12-07 09:17:00 Test Item Value Reference Range Interpretation Comments Lymphocytes # (test code = Lymphocytes 1.0 1.0-5.5 #) [place] [address]-12-07 09:17:00 Test Item Value Reference Range Interpretation Comments Monocytes # (test code 0.2 See_Comment [Aut omated message] The = Monocytes #) system which generated this result tra nsmitted reference range : <=0.8. The reference r calli was not used to int erpret this result as normal/abnormal . [place] [address]-12-07 09:17:00 Test Item Value Reference Range Interpretation Comments Eosinophils # (test code 0.1 See_Comment [A utomated message] The = Eosinophils #) system whic h generated this result tra nsmitted reference range : <=0.5. The reference r calli was not used to int erpret this result as normal/abnormal . [place]0132-12-07 09:17:00 Test Item Value Reference Range Interpretation Comments WBC (test code = WBC) 3.5 3.7-10.4 [place] 740132-12-07 09:17:00 Test Item Value Reference Range Interpretation Comments RBC (test code = RBC) 2.81 4.20-5.40 [place] [address]-12-07 09:17:00 Test Item Value Reference Range Interpretation Comments Hgb (test code = Hgb) 9.7 12.0-16.0 [place] [address]-12-07 09:17:00 Test Item Value Reference Range Interpretation Comments Hct (test code = Hct) 29.3 36.0-48.0 [place] [address]-12-07 09:17:00 Test Item Value Reference Range Interpretation Comments MCV (test code = MCV) 104.2 80.0-98.0 [place] [address]-12-07 09:17:00 Test Item Value Reference Range Interpretation Comments MCH (test code = MCH) 34.6 pg 27.0-31.0 [place] 740132-12-07 09:17:00 Test Item Value Reference Range Interpretation Comments MCHC (test code = MCHC) 33.2 32.0-36.0 [place] 740132-12-07 09:17:00 Test Item Value Reference Range Interpretation Comments RDW (test code = RDW) 17.5 11.5-14.5 [place] 740132-12-07 09:17:00 Test Item Value Reference Range Interpretation Comments Platelet (test code = Platelet) 287 133-450 [place] 740132-12-07 09:17:00 Test Item Value Reference Range Interpretation Comments MPV (test code = MPV) 8.4 7.4-10.4 [place] 436282-12-07 09:17:00 Test Item Value Reference Range Interpretation Comments Hep Bs Ag (test code Negative *NA*(03/01/22 = Hep Bs Ag) 3:17 AM) [place] [address]-12-07 09:17:00 Test Item Value Reference Range Interpretation Comments Hep Bs Ag (test code Negative *NA*(03/01/22 = Hep Bs Ag) 3:17 AM) [place] 841722-12-07 09:17:00 Test Item Value Reference Range Interpretation Comments Glucose Lvl (test code = Glucose Lvl) 86 70-99 [place] 841722-12-07 09:17:00 Test Item Value Reference Range Interpretation Comments BUN (test code = BUN) 58 7-22 [place] 841722-12-07 09:17:00 Test Item Value Reference Range Interpretation Comments Creatinine Lvl (test code = Creatinine 7.97 0.50-1.40 Lvl) [place] 841722-12-07 09:17:00 Test Item Value Reference Range Interpretation Comments Sodium Lvl (test code = Sodium Lvl) 134 135-145 [place] 841722-12-07 09:17:00 Test Item Value Reference Range Interpretation Comments Potassium Lvl (test code = Potassium 3.7 3.5-5.1 Lvl) [place] 841722-12-07 09:17:00 Test Item Value Reference Range Interpretation Comments Chloride Lvl (test code = Chloride Lvl) 98 95-109 [place] 841722-12-07 09:17:00 Test Item Value Reference Range Interpretation Comments CO2 (test code = CO2) 25 24-32 [place] 841722-12-07 09:17:00 Test Item Value Reference Range Interpretation Comments Calcium Lvl (test code = Calcium Lvl) 8.7 8.5-10.5 [place] 841722-12-07 09:17:00 Test Item Value Reference Range Interpretation Comments AGAP (test code = AGAP) 14.7 10.0-20.0 [place] 841722-12-07 09:17:00 Test Item Value Reference Range Interpretation Comments eGFR (test code = eGFR) 5 [place] 740132-12-07 09:17:00 Test Item Value Reference Range Interpretation Comments Segs (test code = Segs) 61.0 45.0-75.0 [place] 740132-12-07 09:17:00 Test Item Value Reference Range Interpretation Comments Lymphocytes (test code = Lymphocytes) 29.7 20.0-40.0 [place] 740132-12-07 09:17:00 Test Item Value Reference Range Interpretation Comments Monocytes (test code = Monocytes) 6.0 2.0-12.0 [place] [address]-12-07 09:17:00 Test Item Value Reference Range Interpretation Comments Eosinophils (test code = 2.4 See_Comment [A utomated message] The Eosinophils) system which ge nerated this result tra nsmitted reference range : <=4.0. The reference r calli was not used to int erpret this result as normal/abnormal . [place] 740132-12-07 09:17:00 Test Item Value Reference Range Interpretation Comments Basophils (test code = 0.9 See_Comment [Aut omated message] The Basophils) system which ge nerated this result tra nsmitted reference range : <=1.0. The reference r calli was not used to int erpret this result as normal/abnormal . [place] [address]-12-07 09:17:00 Test Item Value Reference Range Interpretation Comments Neutrophils # (test code = Neutrophils 2.1 1.5-8.1 #) [place] 740132-12-07 09:17:00 Test Item Value Reference Range Interpretation Comments Lymphocytes # (test code = Lymphocytes 1.0 1.0-5.5 #) [facility]ZpzrqcmKKTHULNVKO3504-72-74 09:17:00 Test Item Value Reference Range Interpretation Comments Monocytes # (test code 0.2 See_Comment [Aut omated message] The = Monocytes #) system which generated this result tra nsmitted reference range : <=0.8. The reference r calli was not used to int erpret this result as normal/abnormal . [place] 740132-12-07 09:17:00 Test Item Value Reference Range Interpretation Comments Eosinophils # (test code 0.1 See_Comment [A utomated message] The = Eosinophils #) system whic h generated this result tra nsmitted reference range : <=0.5. The reference r calli was not used to int erpret this result as normal/abnormal . [place] 740132-12-07 09:17:00 Test Item Value Reference Range Interpretation Comments WBC (test code = WBC) 3.5 3.7-10.4 [place] 740132-12-07 09:17:00 Test Item Value Reference Range Interpretation Comments RBC (test code = RBC) 2.81 4.20-5.40 [place] 740132-12-07 09:17:00 Test Item Value Reference Range Interpretation Comments Hgb (test code = Hgb) 9.7 12.0-16.0 [place] 740132-12-07 09:17:00 Test Item Value Reference Range Interpretation Comments Hct (test code = Hct) 29.3 36.0-48.0 [place] 740132-12-07 09:17:00 Test Item Value Reference Range Interpretation Comments MCV (test code = MCV) 104.2 80.0-98.0 [place] 740132-12-07 09:17:00 Test Item Value Reference Range Interpretation Comments MCH (test code = MCH) 34.6 pg 27.0-31.0 [place] 740132-12-07 09:17:00 Test Item Value Reference Range Interpretation Comments MCHC (test code = MCHC) 33.2 32.0-36.0 [place] 740132-12-07 09:17:00 Test Item Value Reference Range Interpretation Comments RDW (test code = RDW) 17.5 11.5-14.5 [place] [address]-12-07 09:17:00 Test Item Value Reference Range Interpretation Comments Platelet (test code = Platelet) 287 133-450 [place] 740132-12-07 09:17:00 Test Item Value Reference Range Interpretation Comments MPV (test code = MPV) 8.4 7.4-10.4 [place] 436282-12-07 09:17:00 Test Item Value Reference Range Interpretation Comments Hep Bs Ag (test code Negative *NA*(03/01/22 = Hep Bs Ag) 3:17 AM) [place] [address]-12-07 09:17:00 Test Item Value Reference Range Interpretation Comments Hep Bs Ag (test code Negative *NA*(03/01/22 = Hep Bs Ag) 3:17 AM) [place] 841722-12-07 09:17:00 Test Item Value Reference Range Interpretation Comments Glucose Lvl (test code = Glucose Lvl) 86 70-99 [place] 841722-12-07 09:17:00 Test Item Value Reference Range Interpretation Comments BUN (test code = BUN) 58 7-22 [place] 841722-12-07 09:17:00 Test Item Value Reference Range Interpretation Comments Creatinine Lvl (test code = Creatinine 7.97 0.50-1.40 Lvl) [place] 841722-12-07 09:17:00 Test Item Value Reference Range Interpretation Comments Sodium Lvl (test code = Sodium Lvl) 134 135-145 [place] 841722-12-07 09:17:00 Test Item Value Reference Range Interpretation Comments Potassium Lvl (test code = Potassium 3.7 3.5-5.1 Lvl) [place] 841722-12-07 09:17:00 Test Item Value Reference Range Interpretation Comments Chloride Lvl (test code = Chloride Lvl) 98 95-109 [place] 841722-12-07 09:17:00 Test Item Value Reference Range Interpretation Comments CO2 (test code = CO2) 25 24-32 [place] 841722-12-07 09:17:00 Test Item Value Reference Range Interpretation Comments Calcium Lvl (test code = Calcium Lvl) 8.7 8.5-10.5 [place] 841722-12-07 09:17:00 Test Item Value Reference Range Interpretation Comments AGAP (test code = AGAP) 14.7 10.0-20.0 [place] 841722-12-07 09:17:00 Test Item Value Reference Range Interpretation Comments eGFR (test code = eGFR) 5 [place] 740132-12-07 09:17:00 Test Item Value Reference Range Interpretation Comments Segs (test code = Segs) 61.0 45.0-75.[address]12-07 09:17:00 Test Item Value Reference Range Interpretation Comments Lymphocytes (test code = Lymphocytes) 29.7 20.0-40.[address]12-07 09:17:00 Test Item Value Reference Range Interpretation Comments Monocytes (test code = Monocytes) 6.0 2.0-12.0 [place] 740132-12-07 09:17:00 Test Item Value Reference Range Interpretation Comments Eosinophils (test code = 2.4 See_Comment [A utomated message] The Eosinophils) system which ge nerated this result tra nsmitted reference range : <=4.0. The reference r calli was not used to int erpret this result as normal/abnormal . [place] 740132-12-07 09:17:00 Test Item Value Reference Range Interpretation Comments Basophils (test code = 0.9 See_Comment [Aut omated message] The Basophils) system which ge nerated this result tra nsmitted reference range : <=1.0. The reference r calli was not used to int erpret this result as normal/abnormal . [place] 740132-12-07 09:17:00 Test Item Value Reference Range Interpretation Comments Neutrophils # (test code = Neutrophils 2.1 1.5-8.1 #) [place] [address]-12-07 09:17:00 Test Item Value Reference Range Interpretation Comments Lymphocytes # (test code = Lymphocytes 1.0 1.0-5.5 #) [address]12-07 09:17:00 Test Item Value Reference Range Interpretation Comments Monocytes # (test code 0.2 See_Comment [Aut omated message] The = Monocytes #) system which generated this result tra nsmitted reference range : <=0.8. The reference r calli was not used to int erpret this result as normal/abnormal . [facility]rppofsNWBOCIUHJR7742-68-42 09:17:00 Test Item Value Reference Range Interpretation Comments Eosinophils # (test code 0.1 See_Comment [A utomated message] The = Eosinophils #) system whic h generated this result tra nsmitted reference range : <=0.5. The reference r calli was not used to int erpret this result as normal/abnormal . [facility]kinIagqgtdDMCCTLUJJH7945-89-52 09:17:00 Test Item Value Reference Range Interpretation Comments WBC (test code = WBC) 3.5 3.7-10.4 [place] 740132-12-07 09:17:00 Test Item Value Reference Range Interpretation Comments RBC (test code = RBC) 2.81 4.20-5.40 [facility]kinLnpakmjHLPYHEJPAK9132-83-07 09:17:00 Test Item Value Reference Range Interpretation Comments Hgb (test code = Hgb) 9.7 12.0-16.0 [facility]ufkinBnrdrurDLTQSVURSA9285-05-03 09:17:00 Test Item Value Reference Range Interpretation Comments Hct (test code = Hct) 29.3 36.0-48.0 [facility]ufkinZwugqujJPIHPGSLTK3324-98-48 09:17:00 Test Item Value Reference Range Interpretation Comments MCV (test code = MCV) 104.2 80.0-98.0 [facility]ufkinMcxivfzZGZSTLLVHZ7406-50-14 09:17:00 Test Item Value Reference Range Interpretation Comments MCH (test code = MCH) 34.6 pg 27.0-31.0 [place] 740132-12-07 09:17:00 Test Item Value Reference Range Interpretation Comments MCHC (test code = MCHC) 33.2 32.0-36.0 [facility]ufkinXexhfdxWBVKLIGRJD0883-32-62 09:17:00 Test Item Value Reference Range Interpretation Comments RDW (test code = RDW) 17.5 11.5-14.5 [place] 740132-12-07 09:17:00 Test Item Value Reference Range Interpretation Comments Platelet (test code = Platelet) 287 133-450 [facility]ufkinDmdgughLQYFXBPLSA8364-70-25 09:17:00 Test Item Value Reference Range Interpretation Comments MPV (test code = MPV) 8.4 7.4-10.4 [facility]JbbjgnaZZNTPFALHF2751-15-83 09:17:00 Test Item Value Reference Range Interpretation Comments Hep Bs Ag (test code Negative *NA*(03/01/22 = Hep Bs Ag) 3:17 AM) [facility]evilleWfmqicbBBSLOYBPAZ8422-55-38 09:17:00 Test Item Value Reference Range Interpretation Comments Hep Bs Ag (test code Negative *NA*(03/01/22 = Hep Bs Ag) 3:17 AM) [facility]evilleannCARDIAC QWSJIWY1735-31-95 23:13:00 Test Item Value Reference Range Interpretation Comments HS Troponin I 1 Hr (test code = HS 19 Troponin I 1 Hr) [facility]annCARDIAC YFANTLW8318-03-95 23:13:00 Test Item Value Reference Range Interpretation Comments HS Troponin I 0 to 1 See Note 7(02/28/22 Hour Delta (test code = 5:13 PM) HS Troponin I 0 to 1 Hour Delta) [facility]evilleNbkeehkIFGMOFZQB3746 23:13:00 Test Item Value Reference Range Interpretation Comments Trig (test code = Trig) 147 [facility] BeevilleItnykmxHSXKIAPEA6286-56-24 23:13:00 Test Item Value Reference Range Interpretation Comments Chol (test code = Chol) 147 [facility] BeevilleRywlzizKYCBGQELH3222-65-10 23:13:00 Test Item Value Reference Range Interpretation Comments HDL (test code = HDL) 36 [facility] BeevilleWjaehlkXNFZLJPDQ2475-93-54 23:13:00 Test Item Value Reference Range Interpretation Comments Chol/HDL Ratio (test code = Chol/HDL 4.08 1 3.90-5.80 Ratio) [facility]evilleCuoetjmJAMKHYSNM9720-74-91 23:13:00 Test Item Value Reference Range Interpretation Comments LDL (Calculated) (test code = LDL 82 (Calculated)) [facility]evilleIkkfhchDMEXQHFOY1118-12-31 23:13:00 Test Item Value Reference Range Interpretation Comments VLDL (test code = VLDL) 29 1 [facility]evilleHgxfoavFKQCAOBCO6035-48-26 23:13:00 Test Item Value Reference Range Interpretation Comments TSH (test code = TSH) 3.280 0.360-3.740 [facility]evilleViwuiwlBNOXEZKQT6144-29-20 23:13:00 Test Item Value Reference Range Interpretation Comments Hgb A1C (test code = Hgb A1C) 4.6 [facility]evilleWwyxcueSPLISCZPN4069-74-39 23:13:00 Test Item Value Reference Range Interpretation Comments HS Troponin I 1 Hr (test code = HS 19 Troponin I 1 Hr) [facility] BeevilleLiwttmfVRFOCVYIG3208-33-83 23:13:00 Test Item Value Reference Range Interpretation Comments HS Troponin I 0 to 1 See Note 5(02/28/22 Hour Delta (test code = 5:13 PM) HS Troponin I 0 to 1 Hour Delta) [facility] BeevilleUrcchpxNLRDVP8337-41-92 23:13:00 Test Item Value Reference Range Interpretation Comments Trig (test code = Trig) 147 [facility] BeevilleLxugrobPLYRQH9114-16-60 23:13:00 Test Item Value Reference Range Interpretation Comments Chol (test code = Chol) 147 [facility] BeevilleGnvyrmyXWOXZY1286-30-49 23:13:00 Test Item Value Reference Range Interpretation Comments HDL (test code = HDL) 36 [facility]AhajpduJSZCRE1150-09-63 23:13:00 Test Item Value Reference Range Interpretation Comments Chol/HDL Ratio (test code = Chol/HDL 4.08 1 3.90-5.80 Ratio) [facility] CenterPldgbjkPECKEU6530-35-23 23:13:00 Test Item Value Reference Range Interpretation Comments LDL (Calculated) (test code = LDL 82 (Calculated)) [facility] CenterBtzuwwkSOTGIK5770-88-92 23:13:00 Test Item Value Reference Range Interpretation Comments VLDL (test code = VLDL) 29 1 [facility] PHJFMJWTW5369-58-95 23:13:00 Test Item Value Reference Range Interpretation Comments Hgb A1C (test code = Hgb A1C) 4.6 [facility]annCARDIAC FFMLLKU8092-41-51 23:13:00 Test Item Value Reference Range Interpretation Comments HS Troponin I 1 Hr (test code = HS 19 Troponin I 1 Hr) [facility] CenterCARD[facility] LORJFZC8162-10-45 23:13:00 Test Item Value Reference Range Interpretation Comments HS Troponin I 0 to 1 See Note 7(02/28/22 Hour Delta (test code = 5:13 PM) HS Troponin I 0 to 1 Hour Delta) [facility] HospitalRygssvnNUUTICIKR6762-71-41 23:13:00 Test Item Value Reference Range Interpretation Comments Trig (test code = Trig) 147 [facility]evilleScxgmbjUVODPOLBX3534-58-93 23:13:00 Test Item Value Reference Range Interpretation Comments Chol (test code = Chol) 147 [place] [address]-12-06 23:13:00 Test Item Value Reference Range Interpretation Comments HDL (test code = HDL) 36 [place] [address]-12-06 23:13:00 Test Item Value Reference Range Interpretation Comments Chol/HDL Ratio (test code = Chol/HDL 4.08 1 3.90-5.80 Ratio) [place] [address]-12-06 23:13:00 Test Item Value Reference Range Interpretation Comments LDL (Calculated) (test code = LDL 82 (Calculated)) [address]12-06 23:13:00 Test Item Value Reference Range Interpretation Comments VLDL (test code = VLDL) 29 1 [place] [address]-12-06 23:13:00 Test Item Value Reference Range Interpretation Comments TSH (test code = TSH) 3.280 0.360-3.740 [place] [address]-12-06 23:13:00 Test Item Value Reference Range Interpretation Comments Hgb A1C (test code = Hgb A1C) 4.6 [place] [address]-12-06 23:13:00 Test Item Value Reference Range Interpretation Comments HS Troponin I 1 Hr (test code = HS 19 Troponin I 1 Hr) [place] [address]-12-06 23:13:00 Test Item Value Reference Range Interpretation Comments HS Troponin I 0 to 1 See Note 5(02/28/22 Hour Delta (test code = 5:13 PM) HS Troponin I 0 to 1 Hour Delta) [place] [address]-12-06 23:13:00 Test Item Value Reference Range Interpretation Comments Trig (test code = Trig) 147 [place] [address]-12-06 23:13:00 Test Item Value Reference Range Interpretation Comments Chol (test code = Chol) 147 [place] [address]-12-06 23:13:00 Test Item Value Reference Range Interpretation Comments HDL (test code = HDL) 36 [place] [address]-12-06 23:13:00 Test Item Value Reference Range Interpretation Comments Chol/HDL Ratio (test code = Chol/HDL 4.08 1 3.90-5.80 Ratio) [place] 534012-12-06 23:13:00 Test Item Value Reference Range Interpretation Comments LDL (Calculated) (test code = LDL 82 (Calculated)) [facility] CenterQfurvrhRYANLX2238-17-71 23:13:00 Test Item Value Reference Range Interpretation Comments VLDL (test code = VLDL) 29 1 [facility] ENQCXTYWM4401-52-06 23:13:00 Test Item Value Reference Range Interpretation Comments Hgb A1C (test code = Hgb A1C) 4.6 [facility] OXVZSLB9506-91-23 23:13:00 Test Item Value Reference Range Interpretation Comments HS Troponin I 1 Hr (test code = HS 19 Troponin I 1 Hr) [facility] ZDBKZIO9112-10-82 23:13:00 Test Item Value Reference Range Interpretation Comments HS Troponin I 0 to 1 See Note 7(02/28/22 Hour Delta (test code = 5:13 PM) HS Troponin I 0 to 1 Hour Delta) [facility]WkaxmtqVIBQITHHX2991-80-93 23:13:00 Test Item Value Reference Range Interpretation Comments Trig (test code = Trig) 147 [facility] CenterZujlhvuQTGDNZGXH8188-18-93 23:13:00 Test Item Value Reference Range Interpretation Comments Chol (test code = Chol) 147 [place] 462112-12-06 23:13:00 Test Item Value Reference Range Interpretation Comments HDL (test code = HDL) 36 [facility]evilleEjqadxkYBYJSXTNP1752-95-25 23:13:00 Test Item Value Reference Range Interpretation Comments Chol/HDL Ratio (test code = Chol/HDL 4.08 1 3.90-5.80 Ratio) [facility] HospitalEvnwborUFPOIBMLY8291-89-49 23:13:00 Test Item Value Reference Range Interpretation Comments LDL (Calculated) (test code = LDL 82 (Calculated)) [place] 462112-12-06 23:13:00 Test Item Value Reference Range Interpretation Comments VLDL (test code = VLDL) 29 1 [facility] CenterWucnsgvGWQLPNJIX5415-41-68 23:13:00 Test Item Value Reference Range Interpretation Comments TSH (test code = TSH) 3.280 0.360-3.740 [facility] HospitalFcximmxUHPZXUVZT3053-25-74 23:13:00 Test Item Value Reference Range Interpretation Comments Hgb A1C (test code = Hgb A1C) 4.6 [facility]evilleDhjplaiINMTSRYWO6185-70-83 23:13:00 Test Item Value Reference Range Interpretation Comments HS Troponin I 1 Hr (test code = HS 19 Troponin I 1 Hr) [facility]evilleEehdxadEHGJMBYJF1186-34-44 23:13:00 Test Item Value Reference Range Interpretation Comments HS Troponin I 0 to 1 See Note 5(02/28/22 Hour Delta (test code = 5:13 PM) HS Troponin I 0 to 1 Hour Delta) [facility]evilleEjeuwwpEEWUNO7088-12-20 23:13:00 Test Item Value Reference Range Interpretation Comments Trig (test code = Trig) 147 [facility] BeevilleKzealfjKPUJSX7971-74-69 23:13:00 Test Item Value Reference Range Interpretation Comments Chol (test code = Chol) 147 [facility] BeevilleWozjuyxHNWFHR0490-10-02 23:13:00 Test Item Value Reference Range Interpretation Comments HDL (test code = HDL) 36 [facility] BeevilleRuhwxjjMVKLNU2846-46-30 23:13:00 Test Item Value Reference Range Interpretation Comments Chol/HDL Ratio (test code = Chol/HDL 4.08 1 3.90-5.80 Ratio) [facility]evilleShsugrjNQHQGA6750-15-72 23:13:00 Test Item Value Reference Range Interpretation Comments LDL (Calculated) (test code = LDL 82 (Calculated)) [facility] BeevilleMtibhbwQBMANR2900-43-83 23:13:00 Test Item Value Reference Range Interpretation Comments VLDL (test code = VLDL) 29 1 [facility]evilleannSPECIAL MVWIZFMWA9890-59-66 23:13:00 Test Item Value Reference Range Interpretation Comments Hgb A1C (test code = Hgb A1C) 4.6 [facility] HHGVKYR7702-64-07 23:13:00 Test Item Value Reference Range Interpretation Comments HS Troponin I 1 Hr (test code = HS 19 Troponin I 1 Hr) [facility] HQVDYPE9432-84-06 23:13:00 Test Item Value Reference Range Interpretation Comments HS Troponin I 0 to 1 See Note 7(02/28/22 Hour Delta (test code = 5:13 PM) HS Troponin I 0 to 1 Hour Delta) [facility] BeevilleVhimusqFFOZZTHUD0687-14-14 23:13:00 Test Item Value Reference Range Interpretation Comments Trig (test code = Trig) 147 [facility] BeevilleBuxnudwLPNBBKTOC1346-54-86 23:13:00 Test Item Value Reference Range Interpretation Comments Chol (test code = Chol) 147 [facility] BeevilleStycqlkCOKUOQLNR5200-76-46 23:13:00 Test Item Value Reference Range Interpretation Comments HDL (test code = HDL) 36 [place] [address]-12-06 23:13:00 Test Item Value Reference Range Interpretation Comments Chol/HDL Ratio (test code = Chol/HDL 4.08 1 3.90-5.80 Ratio) [place] [address]-12-06 23:13:00 Test Item Value Reference Range Interpretation Comments LDL (Calculated) (test code = LDL 82 (Calculated)) [address]12-06 23:13:00 Test Item Value Reference Range Interpretation Comments VLDL (test code = VLDL) 29 1 [address]12-06 23:13:00 Test Item Value Reference Range Interpretation Comments TSH (test code = TSH) 3.280 0.360-3.[address]12-06 23:13:00 Test Item Value Reference Range Interpretation Comments Hgb A1C (test code = Hgb A1C) 4.[address]12-06 23:13:00 Test Item Value Reference Range Interpretation Comments HS Troponin I 1 Hr (test code = HS 19 Troponin I 1 Hr) [address]12-06 23:13:00 Test Item Value Reference Range Interpretation Comments HS Troponin I 0 to 1 See Note 5(02/28/22 Hour Delta (test code = 5:13 PM) HS Troponin I 0 to 1 Hour Delta) [address]12-06 23:13:00 Test Item Value Reference Range Interpretation Comments Trig (test code = Trig) 147 [place] [address]-12-06 23:13:00 Test Item Value Reference Range Interpretation Comments Chol (test code = Chol) 147 [place] [address]-12-06 23:13:00 Test Item Value Reference Range Interpretation Comments HDL (test code = HDL) 36 [place] [address]-12-06 23:13:00 Test Item Value Reference Range Interpretation Comments Chol/HDL Ratio (test code = Chol/HDL 4.08 1 3.90-5.80 Ratio) [place] [address]-12-06 23:13:00 Test Item Value Reference Range Interpretation Comments LDL (Calculated) (test code = LDL 82 (Calculated)) [address]12-06 23:13:00 Test Item Value Reference Range Interpretation Comments VLDL (test code = VLDL) 29 1 [facility] PLARIZOZZ8997-57-34 23:13:00 Test Item Value Reference Range Interpretation Comments Hgb A1C (test code = Hgb A1C) 4.6 [place] 25598022-12-06 23:06:11 Test Item Value Reference Range Interpretation Comments RADRPT (test code = PROCEDURE INFORMATION: RADRPT) Exam: MR Cervical Spine Without Contrast Exam date and time: 02/28/2022 3:55 PM Age: 56 years old Clinical indication: /acute left arm / leg hemiparesis - sparing face TECHNIQUE: Imaging protocol: Magnetic resonance imaging of the cervical spine without contrast. COMPARISON: BRAIN/NECK STROKE CTA 02/28/2022 12:31 PM FINDINGS: Bones/joints: The normal cervical lordosis is preserved. Trace retrolisthesis at C3-C4, C4-C5, and C5-C6. The vertebral body heights are maintained. Degenerative endplate marrow signal changes are visualized. Spinal cord: Normal signal. C2-C3: Mild left neural foraminal stenosis secondary to and facet joint arthrosis. The spinal canal and right neural foramen are grossly patent.C3-C4: Broad-based disc bulging with uncovertebral joint arthrosis. Mild to moderate spinal canal stenosis. Moderate bilateral neural foraminal stenosis.C4-C5: Posterior disc-osteophyte complex with uncovertebral and facet joint arthrosis. Moderate to severe spinal canal stenosis, with the AP dimension of the spinal canal measuring 6.5 mm. Severe right and moderate left neural foraminal stenosis.C5-C6: Posterior disc-osteophyte complex with uncovertebral and facet joint arthrosis. Moderate spinal canal stenosis. Moderate to severe bilateral neural foraminal stenosis.C6-C7: Mild bilateral neural foraminal stenosis secondary to diffuse disc bulging. The spinal canal appears grossly patent.C7-T1: Bilateral facet disease. No spinal canal or neural foraminal stenosis. Soft tissues: Unremarkable. Vasculature: Expected flow voids in the vertebral arteries. IMPRESSION: Moderate to severe degenerative changes at C4-C5 and C5-C6.Eric Benoit MD On 02/28/2022 17:05:23; [id number] [place] 25598022-12-06 23:06:11 Test Item Value Reference Range Interpretation Comments RADRPT (test code = PROCEDURE INFORMATION: RADRPT) Exam: MR Cervical Spine Without Contrast Exam date and time: 02/28/2022 3:55 PM Age: 56 years old Clinical indication: /acute left arm / leg hemiparesis - sparing face TECHNIQUE: Imaging protocol: Magnetic resonance imaging of the cervical spine without contrast. COMPARISON: BRAIN/NECK STROKE CTA 02/28/2022 12:31 PM FINDINGS: Bones/joints: The normal cervical lordosis is preserved. Trace retrolisthesis at C3-C4, C4-C5, and C5-C6. The vertebral body heights are maintained. Degenerative endplate marrow signal changes are visualized. Spinal cord: Normal signal. C2-C3: Mild left neural foraminal stenosis secondary to and facet joint arthrosis. The spinal canal and right neural foramen are grossly patent.C3-C4: Broad-based disc bulging with uncovertebral joint arthrosis. Mild to moderate spinal canal stenosis. Moderate bilateral neural foraminal stenosis.C4-C5: Posterior disc-osteophyte complex with uncovertebral and facet joint arthrosis. Moderate to severe spinal canal stenosis, with the AP dimension of the spinal canal measuring 6.5 mm. Severe right and moderate left neural foraminal stenosis.C5-C6: Posterior disc-osteophyte complex with uncovertebral and facet joint arthrosis. Moderate spinal canal stenosis. Moderate to severe bilateral neural foraminal stenosis.C6-C7: Mild bilateral neural foraminal stenosis secondary to diffuse disc bulging. The spinal canal appears grossly patent.C7-T1: Bilateral facet disease. No spinal canal or neural foraminal stenosis. Soft tissues: Unremarkable. Vasculature: Expected flow voids in the vertebral arteries. IMPRESSION: Moderate to severe degenerative changes at C4-C5 and C5-C6.Eric Benoit MD On 02/28/2022 17:05:23; [id number] [facility] CenterTfexuhlBAIPRH0714-58-35 23:06:11 Test Item Value Reference Range Interpretation Comments RADRPT (test code = PROCEDURE INFORMATION: RADRPT) Exam: MR Cervical Spine Without Contrast Exam date and time: 02/28/2022 3:55 PM Age: 56 years old Clinical indication: /acute left arm / leg hemiparesis - sparing face TECHNIQUE: Imaging protocol: Magnetic resonance imaging of the cervical spine without contrast. COMPARISON: BRAIN/NECK STROKE CTA 02/28/2022 12:31 PM FINDINGS: Bones/joints: The normal cervical lordosis is preserved. Trace retrolisthesis at C3-C4, C4-C5, and C5-C6. The vertebral body heights are maintained. Degenerative endplate marrow signal changes are visualized. Spinal cord: Normal signal. C2-C3: Mild left neural foraminal stenosis secondary to and facet joint arthrosis. The spinal canal and right neural foramen are grossly patent.C3-C4: Broad-based disc bulging with uncovertebral joint arthrosis. Mild to moderate spinal canal stenosis. Moderate bilateral neural foraminal stenosis.C4-C5: Posterior disc-osteophyte complex with uncovertebral and facet joint arthrosis. Moderate to severe spinal canal stenosis, with the AP dimension of the spinal canal measuring 6.5 mm. Severe right and moderate left neural foraminal stenosis.C5-C6: Posterior disc-osteophyte complex with uncovertebral and facet joint arthrosis. Moderate spinal canal stenosis. Moderate to severe bilateral neural foraminal stenosis.C6-C7: Mild bilateral neural foraminal stenosis secondary to diffuse disc bulging. The spinal canal appears grossly patent.C7-T1: Bilateral facet disease. No spinal canal or neural foraminal stenosis. Soft tissues: Unremarkable. Vasculature: Expected flow voids in the vertebral arteries. IMPRESSION: Moderate to severe degenerative changes at C4-C5 and C5-C6.Eric Benoit MD On 02/28/2022 17:05:23; [id number] [facility] [place], TXFnbvzczHZLYVO8015-03-30 23:06:11 Test Item Value Reference Range Interpretation Comments RADRPT (test code = PROCEDURE INFORMATION: RADRPT) Exam: MR Cervical Spine Without Contrast Exam date and time: 02/28/2022 3:55 PM Age: 56 years old Clinical indication: /acute left arm / leg hemiparesis - sparing face TECHNIQUE: Imaging protocol: Magnetic resonance imaging of the cervical spine without contrast. COMPARISON: BRAIN/NECK STROKE CTA 02/28/2022 12:31 PM FINDINGS: Bones/joints: The normal cervical lordosis is preserved. Trace retrolisthesis at C3-C4, C4-C5, and C5-C6. The vertebral body heights are maintained. Degenerative endplate marrow signal changes are visualized. Spinal cord: Normal signal. C2-C3: Mild left neural foraminal stenosis secondary to and facet joint arthrosis. The spinal canal and right neural foramen are grossly patent.C3-C4: Broad-based disc bulging with uncovertebral joint arthrosis. Mild to moderate spinal canal stenosis. Moderate bilateral neural foraminal stenosis.C4-C5: Posterior disc-osteophyte complex with uncovertebral and facet joint arthrosis. Moderate to severe spinal canal stenosis, with the AP dimension of the spinal canal measuring 6.5 mm. Severe right and moderate left neural foraminal stenosis.C5-C6: Posterior disc-osteophyte complex with uncovertebral and facet joint arthrosis. Moderate spinal canal stenosis. Moderate to severe bilateral neural foraminal stenosis.C6-C7: Mild bilateral neural foraminal stenosis secondary to diffuse disc bulging. The spinal canal appears grossly patent.C7-T1: Bilateral facet disease. No spinal canal or neural foraminal stenosis. Soft tissues: Unremarkable. Vasculature: Expected flow voids in the vertebral arteries. IMPRESSION: Moderate to severe degenerative changes at C4-C5 and C5-C6.Eric Benoit MD On 02/28/2022 17:05:23; [id number] [facility] [place], [id number] 23:02:32 Test Item Value Reference Range Interpretation Comments RADRPT (test code PROCEDURE INFORMATION: = RADRPT) Exam: MR Head Without Contrast Exam date and time: 02/28/2022 3:36 PM Age: 56 years old Clinical indication: /acute left arm / leg hemiparesis - sparing face TECHNIQUE: Imaging protocol: Magnetic resonance imaging of the head without contrast. COMPARISON: CT BRAIN STROKE WO CONTRAST 02/28/2022 12:31 PM FINDINGS: Brain: No abnormal restricted diffusion or gradient susceptibility artifact. Few scattered areas of T2/FLAIR signal abnormality are present in the supratentorial white matter. 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 Cerebral ventricles: Normal. No ventriculomegaly. Bones/joints: Unremarkable. Paranasal sinuses: Normal as visualized. No acute sinusitis. Mastoid air cells: Normal as visualized. No mastoid effusion. Orbital cavities: Unremarkable. Soft tissues: Unremarkable. IMPRESSION: 1. No acute intracranial abnormality. 2. 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 3. Mild chronic microangiopathic changes. Eric Benoit MD On 02/28/2022 17:01:52; [id number] [facility] [place], [id number] 23:02:32 Test Item Value Reference Range Interpretation Comments RADRPT (test code PROCEDURE INFORMATION: = RADRPT) Exam: MR Head Without Contrast Exam date and time: 02/28/2022 3:36 PM Age: 56 years old Clinical indication: /acute left arm / leg hemiparesis - sparing face TECHNIQUE: Imaging protocol: Magnetic resonance imaging of the head without contrast. COMPARISON: CT BRAIN STROKE WO CONTRAST 02/28/2022 12:31 PM FINDINGS: Brain: No abnormal restricted diffusion or gradient susceptibility artifact. Few scattered areas of T2/FLAIR signal abnormality are present in the supratentorial white matter. 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 Cerebral ventricles: Normal. No ventriculomegaly. Bones/joints: Unremarkable. Paranasal sinuses: Normal as visualized. No acute sinusitis. Mastoid air cells: Normal as visualized. No mastoid effusion. Orbital cavities: Unremarkable. Soft tissues: Unremarkable. IMPRESSION: 1. No acute intracranial abnormality. 2. 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 3. Mild chronic microangiopathic changes. Eric Benoit MD On 02/28/2022 17:01:52; [id number] [id number] 23:02:32 Test Item Value Reference Range Interpretation Comments RADRPT (test code PROCEDURE INFORMATION: = RADRPT) Exam: MR Head Without Contrast Exam date and time: 02/28/2022 3:36 PM Age: 56 years old Clinical indication: /acute left arm / leg hemiparesis - sparing face TECHNIQUE: Imaging protocol: Magnetic resonance imaging of the head without contrast. COMPARISON: CT BRAIN STROKE WO CONTRAST 02/28/2022 12:31 PM FINDINGS: Brain: No abnormal restricted diffusion or gradient susceptibility artifact. Few scattered areas of T2/FLAIR signal abnormality are present in the supratentorial white matter. 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 Cerebral ventricles: Normal. No ventriculomegaly. Bones/joints: Unremarkable. Paranasal sinuses: Normal as visualized. No acute sinusitis. Mastoid air cells: Normal as visualized. No mastoid effusion. Orbital cavities: Unremarkable. Soft tissues: Unremarkable. IMPRESSION: 1. No acute intracranial abnormality. 2. 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 3. Mild chronic microangiopathic changes. Eric Benoit MD On 02/28/2022 17:01:52; [id number] [id number] 23:02:32 Test Item Value Reference Range Interpretation Comments RADRPT (test code PROCEDURE INFORMATION: = RADRPT) Exam: MR Head Without Contrast Exam date and time: 02/28/2022 3:36 PM Age: 56 years old Clinical indication: /acute left arm / leg hemiparesis - sparing face TECHNIQUE: Imaging protocol: Magnetic resonance imaging of the head without contrast. COMPARISON: CT BRAIN STROKE WO CONTRAST 02/28/2022 12:31 PM FINDINGS: Brain: No abnormal restricted diffusion or gradient susceptibility artifact. Few scattered areas of T2/FLAIR signal abnormality are present in the supratentorial white matter. 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 Cerebral ventricles: Normal. No ventriculomegaly. Bones/joints: Unremarkable. Paranasal sinuses: Normal as visualized. No acute sinusitis. Mastoid air cells: Normal as visualized. No mastoid effusion. Orbital cavities: Unremarkable. Soft tissues: Unremarkable. IMPRESSION: 1. No acute intracranial abnormality. 2. 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 3. Mild chronic microangiopathic changes. Eric Beonit MD On 02/28/2022 17:01:52; [id number] [facility] [id number] 19:31:09 Test Item Value Reference Range Interpretation Comments RADRPT (test code PROCEDURE INFORMATION: = RADRPT) Exam: XR Chest Exam date and time: 02/28/2022 12:51 PM Age: 56 years old Clinical indication: /left side weakness TECHNIQUE: Imaging protocol: Radiologic exam of the chest. Views: 1 view. COMPARISON: BRAIN/NECK STROKE CTA 02/28/2022 12:31 PM FINDINGS: Tubes, catheters and devices: Dialysis catheter from the right has its tip in the region of the right atrium. Lungs: Appear free of acute disease. Pleural spaces: No pleural effusion. No pneumothorax. Heart/Mediastinum: Heart size is within normal limits. Vasculature is unremarkable. Bones/joints: Degenerative changes with bridging osteophytes noted in the thoracic spine. IMPRESSION: No acute cardiopulmonary findings. Nicolasa Spicer MD On 02/28/2022 13:30:43; [id number] [facility] [id number] 19:31:09 Test Item Value Reference Range Interpretation Comments RADRPT (test code PROCEDURE INFORMATION: = RADRPT) Exam: XR Chest Exam date and time: 02/28/2022 12:51 PM Age: 56 years old Clinical indication: /left side weakness TECHNIQUE: Imaging protocol: Radiologic exam of the chest. Views: 1 view. COMPARISON: BRAIN/NECK STROKE CTA 02/28/2022 12:31 PM FINDINGS: Tubes, catheters and devices: Dialysis catheter from the right has its tip in the region of the right atrium. Lungs: Appear free of acute disease. Pleural spaces: No pleural effusion. No pneumothorax. Heart/Mediastinum: Heart size is within normal limits. Vasculature is unremarkable. Bones/joints: Degenerative changes with bridging osteophytes noted in the thoracic spine. IMPRESSION: No acute cardiopulmonary findings. Nicolasa Spicer MD On 02/28/2022 13:30:43; [id number] [facility] [place], [id number] 19:31:09 Test Item Value Reference Range Interpretation Comments RADRPT (test code PROCEDURE INFORMATION: = RADRPT) Exam: XR Chest Exam date and time: 02/28/2022 12:51 PM Age: 56 years old Clinical indication: /left side weakness TECHNIQUE: Imaging protocol: Radiologic exam of the chest. Views: 1 view. COMPARISON: BRAIN/NECK STROKE CTA 02/28/2022 12:31 PM FINDINGS: Tubes, catheters and devices: Dialysis catheter from the right has its tip in the region of the right atrium. Lungs: Appear free of acute disease. Pleural spaces: No pleural effusion. No pneumothorax. Heart/Mediastinum: Heart size is within normal limits. Vasculature is unremarkable. Bones/joints: Degenerative changes with bridging osteophytes noted in the thoracic spine. IMPRESSION: No acute cardiopulmonary findings. Nicolasa Spicer MD On 02/28/2022 13:30:43; [id number] [facility] [place], [id number] 19:31:09 Test Item Value Reference Range Interpretation Comments RADRPT (test code PROCEDURE INFORMATION: = RADRPT) Exam: XR Chest Exam date and time: 02/28/2022 12:51 PM Age: 56 years old Clinical indication: /left side weakness TECHNIQUE: Imaging protocol: Radiologic exam of the chest. Views: 1 view. COMPARISON: BRAIN/NECK STROKE CTA 02/28/2022 12:31 PM FINDINGS: Tubes, catheters and devices: Dialysis catheter from the right has its tip in the region of the right atrium. Lungs: Appear free of acute disease. Pleural spaces: No pleural effusion. No pneumothorax. Heart/Mediastinum: Heart size is within normal limits. Vasculature is unremarkable. Bones/joints: Degenerative changes with bridging osteophytes noted in the thoracic spine. IMPRESSION: No acute cardiopulmonary findings. Nicolasa Spicer MD On 02/28/2022 13:30:43; [id number] [facility] [id number] 18:58:33 Test Item Value Reference Range Interpretation Comments RADRPT (test code Radiation Dose CTDIVOL = 0 = RADRPT) (mGy): DLP = 135.9 (mGy-cm)PROCEDURE INFORMATION: Exam: CTA Head With Contrast, Arteriography Exam date and time: 02/28/2022 12:31 PM Age: 56 years old Clinical indication: Stroke-like symptoms; Additional info: /left side weakness TECHNIQUE: Imaging protocol: Computed tomographic angiography of the head with contrast. Exam focused on the arteries. 3D rendering (Not supervised by radiologist): MIP and/or 3D reconstructed images were created by the technologist. Software analysis: LVO algorithm analysis was applied to this CTA data. AI analysis results were neither submitted to nor interpreted by this radiologist. Radiation optimization: All CT scans at this facility use at least one of these dose optimization techniques: automated exposure control; mA and/or kV adjustment per patient size (includes targeted exams where dose is matched to clinical indication); or iterative reconstruction. Contrast material: OMNI 350; Contrast volume: 85 ml; Contrast route: INTRAVENOUS (IV); COMPARISON: No relevant prior studies available. RADIATION DOSE METRICS: Total DLP (mGy-cm): 135.9 FINDINGS: CTA NECK: There is no stenosis at the origins of the supra-aortic great vessels. The right common carotid artery, carotid bifurcation, and internal carotid artery are patent. There is no measurable stenosis of the right ICA. The left common carotid artery, carotid bifurcation, and internal carotid artery are patent. There is no measurable stenosis of the left ICA. The vertebral arteries are patent. CTA BRAIN: Internal carotid arteries: No occlusion or significant stenosis of the bilateral internal carotid arteries. Anterior cerebral arteries: No occlusion or significant stenosis of the anterior cerebral arteries. Middle cerebral arteries: No occlusion or significant stenosis of the bilateral middle cerebral arteries. Vertebrobasilar arteries: No occlusion or significant stenosis of the bilateral vertebral arteries or basilar artery. Posterior cerebral arteries: No occlusion or significant stenosis of the posterior cerebral arteries. No aneurysms are identified. IMPRESSION: CTA NECK: 1. No occlusion or stenosis of the bilateral extracranial internal carotid arteries. 2. The bilateral vertebral arteries are patent. CTA BRAIN: 3. No occlusion or significant stenosis of the [place]. 4. No cerebral aneurysms are identified. REFERENCES: NASCET CRITERIA. The degree of stenosis in the cervical segment of the internal carotid artery is based on NASCET criteria. Normal is no stenosis. Mild is less than 50% stenosis. Moderate is 50-69% stenosis. Severe is 70% to 99% stenosis. Total occlusion is no detectable patent lumen. [place] OCEDURE INFORMATION: Exam: CTA Neck With Contrast Exam date and time: 02/28/2022 12:31 PM Age: 56 years old Clinical indication: Stroke-like symptoms; Additional info: /left side weakness TECHNIQUE: Imaging protocol: Computed tomographic angiography of the neck with contrast. 3D rendering (Not supervised by radiologist): MIP and/or 3D reconstructed images were created by the technologist. Software analysis: LVO algorithm analysis was applied to this CTA data. AI analysis results were neither submitted to nor interpreted by this radiologist. Radiation optimization: All CT scans at this facility use at least one of these dose optimization techniques: automated exposure control; mA and/or kV adjustment per patient size (includes targeted exams where dose is matched to clinical indication); or iterative reconstruction. Contrast material: OMNI 350; Contrast volume: 85 ml; Contrast route: INTRAVENOUS (IV); COMPARISON: No relevant prior studies available. RADIATION DOSE METRICS: Total DLP (mGy-cm): 0 FINDINGS: CTA NECK: There is no stenosis at the origins of the supra-aortic great vessels. The right common carotid artery, carotid bifurcation, and internal carotid artery are patent. There is no measurable stenosis of the right ICA. The left common carotid artery, carotid bifurcation, and internal carotid artery are patent. There is no measurable stenosis of the left ICA. The vertebral arteries are patent. CTA BRAIN: Internal carotid arteries: No occlusion or significant stenosis of the bilateral internal carotid arteries. Anterior cerebral arteries: No occlusion or significant stenosis of the anterior cerebral arteries. Middle cerebral arteries: No occlusion or significant stenosis of the bilateral middle cerebral arteries. Vertebrobasilar arteries: No occlusion or significant stenosis of the bilateral vertebral arteries or basilar artery. Posterior cerebral arteries: No occlusion or significant stenosis of the posterior cerebral arteries. No aneurysms are identified. IMPRESSION: CTA NECK: 1. No occlusion or stenosis of the bilateral extracranial internal carotid arteries. 2. The bilateral vertebral arteries are patent. CTA BRAIN: 3. No occlusion or significant stenosis of the [place]. 4. No cerebral aneurysms are identified. REFERENCES: NASCET CRITERIA. The degree of stenosis in the cervical segment of the internal carotid artery is based on NASCET criteria. Normal is no stenosis. Mild is less than 50% stenosis. Moderate is 50-69% stenosis. Severe is 70% to 99% stenosis. Total occlusion is no detectable patent lumen. Matt Kohli MD On 02/28/2022 12:57:48; [id number] [facility] [place], [id number] 18:58:33 Test Item Value Reference Range Interpretation Comments RADRPT (test code Radiation Dose CTDIVOL = 0 = RADRPT) (mGy): DLP = 135.9 (mGy-cm)PROCEDURE INFORMATION: Exam: CTA Head With Contrast, Arteriography Exam date and time: 02/28/2022 12:31 PM Age: 56 years old Clinical indication: Stroke-like symptoms; Additional info: /left side weakness TECHNIQUE: Imaging protocol: Computed tomographic angiography of the head with contrast. Exam focused on the arteries. 3D rendering (Not supervised by radiologist): MIP and/or 3D reconstructed images were created by the technologist. Software analysis: LVO algorithm analysis was applied to this CTA data. AI analysis results were neither submitted to nor interpreted by this radiologist. Radiation optimization: All CT scans at this facility use at least one of these dose optimization techniques: automated exposure control; mA and/or kV adjustment per patient size (includes targeted exams where dose is matched to clinical indication); or iterative reconstruction. Contrast material: OMNI 350; Contrast volume: 85 ml; Contrast route: INTRAVENOUS (IV); COMPARISON: No relevant prior studies available. RADIATION DOSE METRICS: Total DLP (mGy-cm): 135.9 FINDINGS: CTA NECK: There is no stenosis at the origins of the supra-aortic great vessels. The right common carotid artery, carotid bifurcation, and internal carotid artery are patent. There is no measurable stenosis of the right ICA. The left common carotid artery, carotid bifurcation, and internal carotid artery are patent. There is no measurable stenosis of the left ICA. The vertebral arteries are patent. CTA BRAIN: Internal carotid arteries: No occlusion or significant stenosis of the bilateral internal carotid arteries. Anterior cerebral arteries: No occlusion or significant stenosis of the anterior cerebral arteries. Middle cerebral arteries: No occlusion or significant stenosis of the bilateral middle cerebral arteries. Vertebrobasilar arteries: No occlusion or significant stenosis of the bilateral vertebral arteries or basilar artery. Posterior cerebral arteries: No occlusion or significant stenosis of the posterior cerebral arteries. No aneurysms are identified. IMPRESSION: CTA NECK: 1. No occlusion or stenosis of the bilateral extracranial internal carotid arteries. 2. The bilateral vertebral arteries are patent. CTA BRAIN: 3. No occlusion or significant stenosis of the [place]. 4. No cerebral aneurysms are identified. REFERENCES: NASCET CRITERIA. The degree of stenosis in the cervical segment of the internal carotid artery is based on NASCET criteria. Normal is no stenosis. Mild is less than 50% stenosis. Moderate is 50-69% stenosis. Severe is 70% to 99% stenosis. Total occlusion is no detectable patent lumen. [place] OCEDURE INFORMATION: Exam: CTA Neck With Contrast Exam date and time: 02/28/2022 12:31 PM Age: 56 years old Clinical indication: Stroke-like symptoms; Additional info: /left side weakness TECHNIQUE: Imaging protocol: Computed tomographic angiography of the neck with contrast. 3D rendering (Not supervised by radiologist): MIP and/or 3D reconstructed images were created by the technologist. Software analysis: LVO algorithm analysis was applied to this CTA data. AI analysis results were neither submitted to nor interpreted by this radiologist. Radiation optimization: All CT scans at this facility use at least one of these dose optimization techniques: automated exposure control; mA and/or kV adjustment per patient size (includes targeted exams where dose is matched to clinical indication); or iterative reconstruction. Contrast material: OMNI 350; Contrast volume: 85 ml; Contrast route: INTRAVENOUS (IV); COMPARISON: No relevant prior studies available. RADIATION DOSE METRICS: Total DLP (mGy-cm): 0 FINDINGS: CTA NECK: There is no stenosis at the origins of the supra-aortic great vessels. The right common carotid artery, carotid bifurcation, and internal carotid artery are patent. There is no measurable stenosis of the right ICA. The left common carotid artery, carotid bifurcation, and internal carotid artery are patent. There is no measurable stenosis of the left ICA. The vertebral arteries are patent. CTA BRAIN: Internal carotid arteries: No occlusion or significant stenosis of the bilateral internal carotid arteries. Anterior cerebral arteries: No occlusion or significant stenosis of the anterior cerebral arteries. Middle cerebral arteries: No occlusion or significant stenosis of the bilateral middle cerebral arteries. Vertebrobasilar arteries: No occlusion or significant stenosis of the bilateral vertebral arteries or basilar artery. Posterior cerebral arteries: No occlusion or significant stenosis of the posterior cerebral arteries. No aneurysms are identified. IMPRESSION: CTA NECK: 1. No occlusion or stenosis of the bilateral extracranial internal carotid arteries. 2. The bilateral vertebral arteries are patent. CTA BRAIN: 3. No occlusion or significant stenosis of the [place]. 4. No cerebral aneurysms are identified. REFERENCES: NASCET CRITERIA. The degree of stenosis in the cervical segment of the internal carotid artery is based on NASCET criteria. Normal is no stenosis. Mild is less than 50% stenosis. Moderate is 50-69% stenosis. Severe is 70% to 99% stenosis. Total occlusion is no detectable patent lumen. Matt Kohli MD On 02/28/2022 12:57:48; [id number] [facility] [id number] 18:58:33 Test Item Value Reference Range Interpretation Comments RADRPT (test code Radiation Dose CTDIVOL = 0 = RADRPT) (mGy): DLP = 135.9 (mGy-cm)PROCEDURE INFORMATION: Exam: CTA Head With Contrast, Arteriography Exam date and time: 02/28/2022 12:31 PM Age: 56 years old Clinical indication: Stroke-like symptoms; Additional info: /left side weakness TECHNIQUE: Imaging protocol: Computed tomographic angiography of the head with contrast. Exam focused on the arteries. 3D rendering (Not supervised by radiologist): MIP and/or 3D reconstructed images were created by the technologist. Software analysis: LVO algorithm analysis was applied to this CTA data. AI analysis results were neither submitted to nor interpreted by this radiologist. Radiation optimization: All CT scans at this facility use at least one of these dose optimization techniques: automated exposure control; mA and/or kV adjustment per patient size (includes targeted exams where dose is matched to clinical indication); or iterative reconstruction. Contrast material: OMNI 350; Contrast volume: 85 ml; Contrast route: INTRAVENOUS (IV); COMPARISON: No relevant prior studies available. RADIATION DOSE METRICS: Total DLP (mGy-cm): 135.9 FINDINGS: CTA NECK: There is no stenosis at the origins of the supra-aortic great vessels. The right common carotid artery, carotid bifurcation, and internal carotid artery are patent. There is no measurable stenosis of the right ICA. The left common carotid artery, carotid bifurcation, and internal carotid artery are patent. There is no measurable stenosis of the left ICA. The vertebral arteries are patent. CTA BRAIN: Internal carotid arteries: No occlusion or significant stenosis of the bilateral internal carotid arteries. Anterior cerebral arteries: No occlusion or significant stenosis of the anterior cerebral arteries. Middle cerebral arteries: No occlusion or significant stenosis of the bilateral middle cerebral arteries. Vertebrobasilar arteries: No occlusion or significant stenosis of the bilateral vertebral arteries or basilar artery. Posterior cerebral arteries: No occlusion or significant stenosis of the posterior cerebral arteries. No aneurysms are identified. IMPRESSION: CTA NECK: 1. No occlusion or stenosis of the bilateral extracranial internal carotid arteries. 2. The bilateral vertebral arteries are patent. CTA BRAIN: 3. No occlusion or significant stenosis of the [place]. 4. No cerebral aneurysms are identified. REFERENCES: NASCET CRITERIA. The degree of stenosis in the cervical segment of the internal carotid artery is based on NASCET criteria. Normal is no stenosis. Mild is less than 50% stenosis. Moderate is 50-69% stenosis. Severe is 70% to 99% stenosis. Total occlusion is no detectable patent lumen. [place] OCEDURE INFORMATION: Exam: CTA Neck With Contrast Exam date and time: 02/28/2022 12:31 PM Age: 56 years old Clinical indication: Stroke-like symptoms; Additional info: /left side weakness TECHNIQUE: Imaging protocol: Computed tomographic angiography of the neck with contrast. 3D rendering (Not supervised by radiologist): MIP and/or 3D reconstructed images were created by the technologist. Software analysis: LVO algorithm analysis was applied to this CTA data. AI analysis results were neither submitted to nor interpreted by this radiologist. Radiation optimization: All CT scans at this facility use at least one of these dose optimization techniques: automated exposure control; mA and/or kV adjustment per patient size (includes targeted exams where dose is matched to clinical indication); or iterative reconstruction. Contrast material: OMNI 350; Contrast volume: 85 ml; Contrast route: INTRAVENOUS (IV); COMPARISON: No relevant prior studies available. RADIATION DOSE METRICS: Total DLP (mGy-cm): 0 FINDINGS: CTA NECK: There is no stenosis at the origins of the supra-aortic great vessels. The right common carotid artery, carotid bifurcation, and internal carotid artery are patent. There is no measurable stenosis of the right ICA. The left common carotid artery, carotid bifurcation, and internal carotid artery are patent. There is no measurable stenosis of the left ICA. The vertebral arteries are patent. CTA BRAIN: Internal carotid arteries: No occlusion or significant stenosis of the bilateral internal carotid arteries. Anterior cerebral arteries: No occlusion or significant stenosis of the anterior cerebral arteries. Middle cerebral arteries: No occlusion or significant stenosis of the bilateral middle cerebral arteries. Vertebrobasilar arteries: No occlusion or significant stenosis of the bilateral vertebral arteries or basilar artery. Posterior cerebral arteries: No occlusion or significant stenosis of the posterior cerebral arteries. No aneurysms are identified. IMPRESSION: CTA NECK: 1. No occlusion or stenosis of the bilateral extracranial internal carotid arteries. 2. The bilateral vertebral arteries are patent. CTA BRAIN: 3. No occlusion or significant stenosis of the [place]. 4. No cerebral aneurysms are identified. REFERENCES: NASCET CRITERIA. The degree of stenosis in the cervical segment of the internal carotid artery is based on NASCET criteria. Normal is no stenosis. Mild is less than 50% stenosis. Moderate is 50-69% stenosis. Severe is 70% to 99% stenosis. Total occlusion is no detectable patent lumen. Matt Kohli MD On 02/28/2022 12:57:48; [id number] [id number] 18:58:33 Test Item Value Reference Range Interpretation Comments RADRPT (test code Radiation Dose CTDIVOL = 0 = RADRPT) (mGy): DLP = 135.9 (mGy-cm)PROCEDURE INFORMATION: Exam: CTA Head With Contrast, Arteriography Exam date and time: 02/28/2022 12:31 PM Age: 56 years old Clinical indication: Stroke-like symptoms; Additional info: /left side weakness TECHNIQUE: Imaging protocol: Computed tomographic angiography of the head with contrast. Exam focused on the arteries. 3D rendering (Not supervised by radiologist): MIP and/or 3D reconstructed images were created by the technologist. Software analysis: LVO algorithm analysis was applied to this CTA data. AI analysis results were neither submitted to nor interpreted by this radiologist. Radiation optimization: All CT scans at this facility use at least one of these dose optimization techniques: automated exposure control; mA and/or kV adjustment per patient size (includes targeted exams where dose is matched to clinical indication); or iterative reconstruction. Contrast material: OMNI 350; Contrast volume: 85 ml; Contrast route: INTRAVENOUS (IV); COMPARISON: No relevant prior studies available. RADIATION DOSE METRICS: Total DLP (mGy-cm): 135.9 FINDINGS: CTA NECK: There is no stenosis at the origins of the supra-aortic great vessels. The right common carotid artery, carotid bifurcation, and internal carotid artery are patent. There is no measurable stenosis of the right ICA. The left common carotid artery, carotid bifurcation, and internal carotid artery are patent. There is no measurable stenosis of the left ICA. The vertebral arteries are patent. CTA BRAIN: Internal carotid arteries: No occlusion or significant stenosis of the bilateral internal carotid arteries. Anterior cerebral arteries: No occlusion or significant stenosis of the anterior cerebral arteries. Middle cerebral arteries: No occlusion or significant stenosis of the bilateral middle cerebral arteries. Vertebrobasilar arteries: No occlusion or significant stenosis of the bilateral vertebral arteries or basilar artery. Posterior cerebral arteries: No occlusion or significant stenosis of the posterior cerebral arteries. No aneurysms are identified. IMPRESSION: CTA NECK: 1. No occlusion or stenosis of the bilateral extracranial internal carotid arteries. 2. The bilateral vertebral arteries are patent. CTA BRAIN: 3. No occlusion or significant stenosis of the [place]. 4. No cerebral aneurysms are identified. REFERENCES: NASCET CRITERIA. The degree of stenosis in the cervical segment of the internal carotid artery is based on NASCET criteria. Normal is no stenosis. Mild is less than 50% stenosis. Moderate is 50-69% stenosis. Severe is 70% to 99% stenosis. Total occlusion is no detectable patent lumen. [place] OCEDURE INFORMATION: Exam: CTA Neck With Contrast Exam date and time: 02/28/2022 12:31 PM Age: 56 years old Clinical indication: Stroke-like symptoms; Additional info: /left side weakness TECHNIQUE: Imaging protocol: Computed tomographic angiography of the neck with contrast. 3D rendering (Not supervised by radiologist): MIP and/or 3D reconstructed images were created by the technologist. Software analysis: LVO algorithm analysis was applied to this CTA data. AI analysis results were neither submitted to nor interpreted by this radiologist. Radiation optimization: All CT scans at this facility use at least one of these dose optimization techniques: automated exposure control; mA and/or kV adjustment per patient size (includes targeted exams where dose is matched to clinical indication); or iterative reconstruction. Contrast material: OMNI 350; Contrast volume: 85 ml; Contrast route: INTRAVENOUS (IV); COMPARISON: No relevant prior studies available. RADIATION DOSE METRICS: Total DLP (mGy-cm): 0 FINDINGS: CTA NECK: There is no stenosis at the origins of the supra-aortic great vessels. The right common carotid artery, carotid bifurcation, and internal carotid artery are patent. There is no measurable stenosis of the right ICA. The left common carotid artery, carotid bifurcation, and internal carotid artery are patent. There is no measurable stenosis of the left ICA. The vertebral arteries are patent. CTA BRAIN: Internal carotid arteries: No occlusion or significant stenosis of the bilateral internal carotid arteries. Anterior cerebral arteries: No occlusion or significant stenosis of the anterior cerebral arteries. Middle cerebral arteries: No occlusion or significant stenosis of the bilateral middle cerebral arteries. Vertebrobasilar arteries: No occlusion or significant stenosis of the bilateral vertebral arteries or basilar artery. Posterior cerebral arteries: No occlusion or significant stenosis of the posterior cerebral arteries. No aneurysms are identified. IMPRESSION: CTA NECK: 1. No occlusion or stenosis of the bilateral extracranial internal carotid arteries. 2. The bilateral vertebral arteries are patent. CTA BRAIN: 3. No occlusion or significant stenosis of the [place]. 4. No cerebral aneurysms are identified. REFERENCES: NASCET CRITERIA. The degree of stenosis in the cervical segment of the internal carotid artery is based on NASCET criteria. Normal is no stenosis. Mild is less than 50% stenosis. Moderate is 50-69% stenosis. Severe is 70% to 99% stenosis. Total occlusion is no detectable patent lumen. Matt Kohli MD On 02/28/2022 12:57:48; [id number] [facility] [place], [id number] 18:53:32 Test Item Value Reference Range Interpretation Comments RADRPT (test code = Radiation Dose CTDIVOL = RADRPT) 0 (mGy): DLP = 1045.5 (mGy-cm)ADDENDUM: The call to the ordering clinician was initiated on 02/28/2022 at 1248 hours. The findings were discussed with Dr. Whitt on 02/28/2022 at 1252 hours.Matt Kohli MD On 02/28/2022 12:53:06; [id number] [facility] [place], [id number] 18:53:32 Test Item Value Reference Range Interpretation Comments RADRPT (test code = Radiation Dose CTDIVOL = RADRPT) 0 (mGy): DLP = 1045.5 (mGy-cm)ADDENDUM: The call to the ordering clinician was initiated on 02/28/2022 at 1248 hours. The findings were discussed with Dr. Whitt on 02/28/2022 at 1252 hours.Matt Kohli MD On 02/28/2022 12:53:06; [id number] [facility] [place], [id number] 18:53:32 Test Item Value Reference Range Interpretation Comments RADRPT (test code = Radiation Dose CTDIVOL = RADRPT) 0 (mGy): DLP = 1045.5 (mGy-cm)ADDENDUM: The call to the ordering clinician was initiated on 02/28/2022 at 1248 hours. The findings were discussed with Dr. Whitt on 02/28/2022 at 1252 hours.aMtt Kohli MD On 02/28/2022 12:53:06; [id number] [facility] [place], [id number] 18:53:32 Test Item Value Reference Range Interpretation Comments RADRPT (test code = Radiation Dose CTDIVOL = RADRPT) 0 (mGy): DLP = 1045.5 (mGy-cm)ADDENDUM: The call to the ordering clinician was initiated on 02/28/2022 at 1248 hours. The findings were discussed with Dr. Whitt on 02/28/2022 at 1252 hours.Matt Kohli MD On 02/28/2022 12:53:06; [id number] [id number] 18:49:55 Test Item Value Reference Range Interpretation Comments RADRPT (test code Radiation Dose CTDIVOL = 0 = RADRPT) (mGy): DLP = 1045.5 (mGy-cm)PROCEDURE INFORMATION: Exam: CT Head Without Contrast Exam date and time: 02/28/2022 12:31 PM Age: 56 years old Clinical indication: Stroke-like symptoms; Additional info: /left side weakness TECHNIQUE: Imaging protocol: Computed tomography of the head without contrast. Radiation optimization: All CT scans at this facility use at least one of these dose optimization techniques: automated exposure control; mA and/or kV adjustment per patient size (includes targeted exams where dose is matched to clinical indication); or iterative reconstruction. Other technique: STROKE PROTOCOL was implemented. COMPARISON: No relevant prior studies available. RADIATION DOSE METRICS: Total DLP (mGy-cm): 1045.5 FINDINGS: Brain: There are generalized involutional changes of the brain and microangiopathic changes of the white matter. There are chronic lacunar infarcts of the bilateral basal ganglia. There is no evidence of acute vascular insults, hemorrhage, space-occupying lesions, midline shift, or extra-axial fluid collections. Cerebral ventricles: No ventriculomegaly. Paranasal sinuses: There is no significant paranasal sinus opacification. There are no fluid levels. Mastoid air cells: The mastoid air cells and middle ear cavities are grossly clear. Bones/joints: The calvarium is intact. Soft tissues: Unremarkable. IMPRESSION: 1. No acute intracranial abnormalities are visible. 2. Chronic lacunar infarcts of the bilateral basal ganglia are noted. ASSESSMENT: ASPECTS ([place] Stroke Program Early CT Score) is 10. Matt Kohli MD On 02/28/2022 12:48:58; [id number] [facility] [id number] 18:49:55 Test Item Value Reference Range Interpretation Comments RADRPT (test code Radiation Dose CTDIVOL = 0 = RADRPT) (mGy): DLP = 1045.5 (mGy-cm)PROCEDURE INFORMATION: Exam: CT Head Without Contrast Exam date and time: 02/28/2022 12:31 PM Age: 56 years old Clinical indication: Stroke-like symptoms; Additional info: /left side weakness TECHNIQUE: Imaging protocol: Computed tomography of the head without contrast. Radiation optimization: All CT scans at this facility use at least one of these dose optimization techniques: automated exposure control; mA and/or kV adjustment per patient size (includes targeted exams where dose is matched to clinical indication); or iterative reconstruction. Other technique: STROKE PROTOCOL was implemented. COMPARISON: No relevant prior studies available. RADIATION DOSE METRICS: Total DLP (mGy-cm): 1045.5 FINDINGS: Brain: There are generalized involutional changes of the brain and microangiopathic changes of the white matter. There are chronic lacunar infarcts of the bilateral basal ganglia. There is no evidence of acute vascular insults, hemorrhage, space-occupying lesions, midline shift, or extra-axial fluid collections. Cerebral ventricles: No ventriculomegaly. Paranasal sinuses: There is no significant paranasal sinus opacification. There are no fluid levels. Mastoid air cells: The mastoid air cells and middle ear cavities are grossly clear. Bones/joints: The calvarium is intact. Soft tissues: Unremarkable. IMPRESSION: 1. No acute intracranial abnormalities are visible. 2. Chronic lacunar infarcts of the bilateral basal ganglia are noted. ASSESSMENT: ASPECTS ([place] Stroke Program Early CT Score) is 10. Matt Kohli MD On 02/28/2022 12:48:58; [id number] [facility] [id number] 18:49:55 Test Item Value Reference Range Interpretation Comments RADRPT (test code Radiation Dose CTDIVOL = 0 = RADRPT) (mGy): DLP = 1045.5 (mGy-cm)PROCEDURE INFORMATION: Exam: CT Head Without Contrast Exam date and time: 02/28/2022 12:31 PM Age: 56 years old Clinical indication: Stroke-like symptoms; Additional info: /left side weakness TECHNIQUE: Imaging protocol: Computed tomography of the head without contrast. Radiation optimization: All CT scans at this facility use at least one of these dose optimization techniques: automated exposure control; mA and/or kV adjustment per patient size (includes targeted exams where dose is matched to clinical indication); or iterative reconstruction. Other technique: STROKE PROTOCOL was implemented. COMPARISON: No relevant prior studies available. RADIATION DOSE METRICS: Total DLP (mGy-cm): 1045.5 FINDINGS: Brain: There are generalized involutional changes of the brain and microangiopathic changes of the white matter. There are chronic lacunar infarcts of the bilateral basal ganglia. There is no evidence of acute vascular insults, hemorrhage, space-occupying lesions, midline shift, or extra-axial fluid collections. Cerebral ventricles: No ventriculomegaly. Paranasal sinuses: There is no significant paranasal sinus opacification. There are no fluid levels. Mastoid air cells: The mastoid air cells and middle ear cavities are grossly clear. Bones/joints: The calvarium is intact. Soft tissues: Unremarkable. IMPRESSION: 1. No acute intracranial abnormalities are visible. 2. Chronic lacunar infarcts of the bilateral basal ganglia are noted. ASSESSMENT: ASPECTS ([place] Stroke Program Early CT Score) is 10. Matt Kohli MD On 02/28/2022 12:48:58; [id number] [facility] [place], [id number] 18:49:55 Test Item Value Reference Range Interpretation Comments RADRPT (test code Radiation Dose CTDIVOL = 0 = RADRPT) (mGy): DLP = 1045.5 (mGy-cm)PROCEDURE INFORMATION: Exam: CT Head Without Contrast Exam date and time: 02/28/2022 12:31 PM Age: 56 years old Clinical indication: Stroke-like symptoms; Additional info: /left side weakness TECHNIQUE: Imaging protocol: Computed tomography of the head without contrast. Radiation optimization: All CT scans at this facility use at least one of these dose optimization techniques: automated exposure control; mA and/or kV adjustment per patient size (includes targeted exams where dose is matched to clinical indication); or iterative reconstruction. Other technique: STROKE PROTOCOL was implemented. COMPARISON: No relevant prior studies available. RADIATION DOSE METRICS: Total DLP (mGy-cm): 1045.5 FINDINGS: Brain: There are generalized involutional changes of the brain and microangiopathic changes of the white matter. There are chronic lacunar infarcts of the bilateral basal ganglia. There is no evidence of acute vascular insults, hemorrhage, space-occupying lesions, midline shift, or extra-axial fluid collections. Cerebral ventricles: No ventriculomegaly. Paranasal sinuses: There is no significant paranasal sinus opacification. There are no fluid levels. Mastoid air cells: The mastoid air cells and middle ear cavities are grossly clear. Bones/joints: The calvarium is intact. Soft tissues: Unremarkable. IMPRESSION: 1. No acute intracranial abnormalities are visible. 2. Chronic lacunar infarcts of the bilateral basal ganglia are noted. ASSESSMENT: ASPECTS ([place] Stroke Program Early CT Score) is 10. Matt Kohli MD On 02/28/2022 12:48:58; [id number] [facility] [id number] 18:44:00 Test Item Value Reference Range Interpretation Comments HS Troponin I Baseline (test code = HS 15 Troponin I Baseline) [facility] [id number] 18:44:00 Test Item Value Reference Range Interpretation Comments Total CK (test code = Total CK) 54 12-191 [facility]2022-12-06 18:44:00 Test Item Value Reference Range Interpretation Comments Glucose Lvl (test code = Glucose Lvl) 88 70-99 [facility]2022-12-06 18:44:00 Test Item Value Reference Range Interpretation Comments BUN (test code = BUN) 50 7-22 [facility]2022-12-06 18:44:00 Test Item Value Reference Range Interpretation Comments Creatinine Lvl (test code = Creatinine 6.77 0.50-1.40 Lvl) [facility]2022-12-06 18:44:00 Test Item Value Reference Range Interpretation Comments Sodium Lvl (test code = Sodium Lvl) 135 135-145 [facility] [id number] 18:44:00 Test Item Value Reference Range Interpretation Comments Potassium Lvl (test code = Potassium 4.3 3.5-5.1 Lvl) [facility]2022-12-06 18:44:00 Test Item Value Reference Range Interpretation Comments Chloride Lvl (test code = Chloride Lvl) 98 95-109 [facility]2022-12-06 18:44:00 Test Item Value Reference Range Interpretation Comments CO2 (test code = CO2) 29 24-32 [facility] [id number] 18:44:00 Test Item Value Reference Range Interpretation Comments AGAP (test code = AGAP) 12.3 10.0-20.0 [facility] [id number] 18:44:00 Test Item Value Reference Range Interpretation Comments Calcium Lvl (test code = Calcium Lvl) 8.9 8.5-10.5 [facility] [id number] 18:44:00 Test Item Value Reference Range Interpretation Comments B/C Ratio (test code = B/C Ratio) 7 1 6-25 [facility] [id number] 18:44:00 Test Item Value Reference Range Interpretation Comments Total Protein (test code = Total 6.8 6.4-8.4 Protein) [facility] [place] [id number] 18:44:00 Test Item Value Reference Range Interpretation Comments Albumin Lvl (test code = Albumin Lvl) 2.6 3.5-5.0 [facility] [id number] 18:44:00 Test Item Value Reference Range Interpretation Comments Globulin (test code = Globulin) 4.2 2.7-4.2 [facility] [id number] 18:44:00 Test Item Value Reference Range Interpretation Comments A/G Ratio (test code = A/G Ratio) 0.6 1 0.7-1.6 [facility] [id number] 18:44:00 Test Item Value Reference Range Interpretation Comments ALT (test code = ALT) no gt See_Comment [Auto mated message] The system which ge nerated this result transmit sally reference range : <=65. The reference range was not used to interpr et this result as henrry l/abnormal. [place] [id number] 18:44:00 Test Item Value Reference Range Interpretation Comments AST (test code = AST) 10 See_Comment [Auto mated message] The system which ge nerated this result transmit sally reference range : <=37. The reference range was not used to interpr et this result as henrry l/abnormal. [facility] [id number] 18:44:00 Test Item Value Reference Range Interpretation Comments Alk Phos (test code = Alk Phos) 129 39-136 [facility] [id number] 18:44:00 Test Item Value Reference Range Interpretation Comments Bili Total (test code = Bili Total) 0.4 0.2-1.3 [facility]2022-12-06 18:44:00 Test Item Value Reference Range Interpretation Comments eGFR (test code = eGFR) 7 [place] [address]-12-06 18:44:00 Test Item Value Reference Range Interpretation Comments HS Troponin I Baseline (test code = HS 15 Troponin I Baseline) [place] [address]-12-06 18:44:00 Test Item Value Reference Range Interpretation Comments Total CK (test code = Total CK) 54 12-191 [place] [address]-12-06 18:44:00 Test Item Value Reference Range Interpretation Comments PT (test code = PT) 14.5 s 12.0-14.[address]12-06 18:44:00 Test Item Value Reference Range Interpretation Comments INR (test code = INR) 1.14 1 0.85-1.17 [place] [address]-12-06 18:44:00 Test Item Value Reference Range Interpretation Comments PTT (test code = PTT) 36.9 s 22.9-35.8 [place] [address]-12-06 18:44:00 Test Item Value Reference Range Interpretation Comments WBC (test code = WBC) 5.0 3.7-10.4 [place] [address]-12-06 18:44:00 Test Item Value Reference Range Interpretation Comments RBC (test code = RBC) 3.28 4.20-5.40 [place] [address]-12-06 18:44:00 Test Item Value Reference Range Interpretation Comments Hgb (test code = Hgb) 11.3 12.0-16.0 [place] [address]-12-06 18:44:00 Test Item Value Reference Range Interpretation Comments Hct (test code = Hct) 34.1 36.0-48.0 [place] [address]-12-06 18:44:00 Test Item Value Reference Range Interpretation Comments MCV (test code = MCV) 104.0 80.0-98.0 [place] [address]-12-06 18:44:00 Test Item Value Reference Range Interpretation Comments MCH (test code = MCH) 34.4 pg 27.0-31.0 [place] [address]-12-06 18:44:00 Test Item Value Reference Range Interpretation Comments MCHC (test code = MCHC) 33.1 32.0-36.0 [place] [address]-12-06 18:44:00 Test Item Value Reference Range Interpretation Comments RDW (test code = RDW) 17.9 11.5-14.5 [place] 740132-12-06 18:44:00 Test Item Value Reference Range Interpretation Comments Platelet (test code = Platelet) 302 133-450 [place] 740132-12-06 18:44:00 Test Item Value Reference Range Interpretation Comments MPV (test code = MPV) 8.1 7.4-10.4 [place] [address]-12-06 18:44:00 Test Item Value Reference Range Interpretation Comments PT (test code = PT) 14.5 s 12.0-14.7 [place] [address]-12-06 18:44:00 Test Item Value Reference Range Interpretation Comments INR (test code = INR) 1.14 1 0.85-1.17 [place] [address]-12-06 18:44:00 Test Item Value Reference Range Interpretation Comments PTT (test code = PTT) 36.9 s 22.9-35.8 [place] [address]-12-06 18:44:00 Test Item Value Reference Range Interpretation Comments Segs (test code = Segs) 57.6 45.0-75.0 [place] [address]-12-06 18:44:00 Test Item Value Reference Range Interpretation Comments Lymphocytes (test code = Lymphocytes) 33.5 20.0-40.0 [place] [address]-12-06 18:44:00 Test Item Value Reference Range Interpretation Comments Monocytes (test code = Monocytes) 6.3 2.0-12.0 [place] [address]-12-06 18:44:00 Test Item Value Reference Range Interpretation Comments Eosinophils (test code = 2.0 See_Comment [A utomated message] The Eosinophils) system which ge nerated this result tra nsmitted reference range : <=4.0. The reference r calli was not used to int erpret this result as normal/abnormal . [place] [address]-12-06 18:44:00 Test Item Value Reference Range Interpretation Comments Basophils (test code = 0.6 See_Comment [Aut omated message] The Basophils) system which ge nerated this result tra nsmitted reference range : <=1.0. The reference r calli was not used to int erpret this result as normal/abnormal . [facility]ZpbsgsnGVQLHDUUHK7389-87-11 18:44:00 Test Item Value Reference Range Interpretation Comments Neutrophils # (test code = Neutrophils 2.9 1.5-8.1 #) [facility]9117[facility]28-[facility] 18:44:00 Test Item Value Reference Range Interpretation Comments Lymphocytes # (test code = Lymphocytes 1.7 1.0-5.5 #) [facility]kinXrwfxbgJIRPTEOBNN0565-22-87 18:44:00 Test Item Value Reference Range Interpretation Comments Monocytes # (test code 0.3 See_Comment [Aut omated message] The = Monocytes #) system which generated this result tra nsmitted reference range : <=0.8. The reference r calli was not used to int erpret this result as normal/abnormal . [facility]k[id number] 18:44:00 Test Item Value Reference Range Interpretation Comments Eosinophils # (test code 0.1 See_Comment [A utomated message] The = Eosinophils #) system whic h generated this result tra nsmitted reference range : <=0.5. The reference r calli was not used to int erpret this result as normal/abnormal . [facility]PandgwiFJXCDJUSJY2915-90-63 18:44:00 Test Item Value Reference Range Interpretation Comments Coronavirus (COVID-19) Not Detected (02/28/22 CHERIE (test code = 12:44 PM) Coronavirus (COVID-19) CHERIE) [facility] CenterFbhnqpnKGTFCFUEZF7395-77-66 18:44:00 Test Item Value Reference Range Interpretation Comments Coronavirus (COVID-19) Not Detected (02/28/22 CHERIE (test code = 12:44 PM) Coronavirus (COVID-19) CHERIE) [facility] CenterCARDIAC [id number] 18:44:00 Test Item Value Reference Range Interpretation Comments HS Troponin I Baseline (test code = HS 15 Troponin I Baseline) [facility] [id number] 18:44:00 Test Item Value Reference Range Interpretation Comments Total CK (test code = Total CK) 54 12-191 [facility]evilleBo[facility] My AdsCHEM [id number] 18:44:00 Test Item Value Reference Range Interpretation Comments Glucose Lvl (test code = Glucose Lvl) 88 70-99 [place] 841722-12-06 18:44:00 Test Item Value Reference Range Interpretation Comments BUN (test code = BUN) 50 7-22 [place] 841722-12-06 18:44:00 Test Item Value Reference Range Interpretation Comments Creatinine Lvl (test code = Creatinine 6.77 0.50-1.40 Lvl) [place] 841722-12-06 18:44:00 Test Item Value Reference Range Interpretation Comments Sodium Lvl (test code = Sodium Lvl) 135 135-145 [place] 841722-12-06 18:44:00 Test Item Value Reference Range Interpretation Comments Potassium Lvl (test code = Potassium 4.3 3.5-5.1 Lvl) [place] 841722-12-06 18:44:00 Test Item Value Reference Range Interpretation Comments Chloride Lvl (test code = Chloride Lvl) 98 95-109 [place] 841722-12-06 18:44:00 Test Item Value Reference Range Interpretation Comments CO2 (test code = CO2) 29 24-32 [place] 841722-12-06 18:44:00 Test Item Value Reference Range Interpretation Comments AGAP (test code = AGAP) 12.3 10.0-20.0 [place] 841722-12-06 18:44:00 Test Item Value Reference Range Interpretation Comments Calcium Lvl (test code = Calcium Lvl) 8.9 8.5-10.5 [place] 841722-12-06 18:44:00 Test Item Value Reference Range Interpretation Comments B/C Ratio (test code = B/C Ratio) 7 1 6-25 [place] 841722-12-06 18:44:00 Test Item Value Reference Range Interpretation Comments Total Protein (test code = Total 6.8 6.4-8.4 Protein) [place] 841722-12-06 18:44:00 Test Item Value Reference Range Interpretation Comments Albumin Lvl (test code = Albumin Lvl) 2.6 3.5-5.0 [place] 841722-12-06 18:44:00 Test Item Value Reference Range Interpretation Comments Globulin (test code = Globulin) 4.2 2.7-4.[address]12-06 18:44:00 Test Item Value Reference Range Interpretation Comments A/G Ratio (test code = A/G Ratio) 0.6 1 0.7-1.[address]12-06 18:44:00 Test Item Value Reference Range Interpretation Comments ALT (test code = ALT) no gt See_Comment [Auto mated message] The system which ge nerated this result transmit sally reference range : <=65. The reference range was not used to interpr et this result as henrry l/abnormal. [address]12-06 18:44:00 Test Item Value Reference Range Interpretation Comments AST (test code = AST) 10 See_Comment [Auto mated message] The system which ge nerated this result transmit sally reference range : <=37. The reference range was not used to interpr et this result as henrry l/abnormal. [address]12-06 18:44:00 Test Item Value Reference Range Interpretation Comments Alk Phos (test code = Alk Phos) 129 39-136 [address]12-06 18:44:00 Test Item Value Reference Range Interpretation Comments Bili Total (test code = Bili Total) 0.4 0.2-1.[address]12-06 18:44:00 Test Item Value Reference Range Interpretation Comments eGFR (test code = eGFR) 7 [place] [address]-12-06 18:44:00 Test Item Value Reference Range Interpretation Comments HS Troponin I Baseline (test code = HS 15 Troponin I Baseline) [address]12-06 18:44:00 Test Item Value Reference Range Interpretation Comments Total CK (test code = Total CK) 54 12-191 [place] [address]-12-06 18:44:00 Test Item Value Reference Range Interpretation Comments PT (test code = PT) 14.5 s 12.0-14.[address]12-06 18:44:00 Test Item Value Reference Range Interpretation Comments INR (test code = INR) 1.14 1 0.85-1.[address]12-06 18:44:00 Test Item Value Reference Range Interpretation Comments PTT (test code = PTT) 36.9 s 22.9-35.8 [facility]kinMfhoubfORTLFLUSAB1261-56-05 18:44:00 Test Item Value Reference Range Interpretation Comments WBC (test code = WBC) 5.0 3.7-10.4 [facility]ufkinDsegwwcAPMEYRGQPG1523-50-93 18:44:00 Test Item Value Reference Range Interpretation Comments RBC (test code = RBC) 3.28 4.20-5.40 [place] 740132-12-06 18:44:00 Test Item Value Reference Range Interpretation Comments Hgb (test code = Hgb) 11.3 12.0-16.0 [place] 740132-12-06 18:44:00 Test Item Value Reference Range Interpretation Comments Hct (test code = Hct) 34.1 36.0-48.0 [place] 740132-12-06 18:44:00 Test Item Value Reference Range Interpretation Comments MCV (test code = MCV) 104.0 80.0-98.0 [facility]kinGctxivvEFQMDEQTKO1397-28-34 18:44:00 Test Item Value Reference Range Interpretation Comments MCH (test code = MCH) 34.4 pg 27.0-31.0 [facility]ufkinVugwndaAKJGXWOZAP9131-16-27 18:44:00 Test Item Value Reference Range Interpretation Comments MCHC (test code = MCHC) 33.1 32.0-36.0 [facility]ufkinFykamoeWICZSUZJVV0257-53-23 18:44:00 Test Item Value Reference Range Interpretation Comments RDW (test code = RDW) 17.9 11.5-14.5 [facility]kinAihmgteIKVOHDTGYN7392-81-01 18:44:00 Test Item Value Reference Range Interpretation Comments Platelet (test code = Platelet) 302 133-450 [facility] LufkinLzuprcdJDLJWFXMVI3476-78-06 18:44:00 Test Item Value Reference Range Interpretation Comments MPV (test code = MPV) 8.1 7.4-10.4 [place] 740132-12-06 18:44:00 Test Item Value Reference Range Interpretation Comments PT (test code = PT) 14.5 s 12.0-14.7 [place] 740132-12-06 18:44:00 Test Item Value Reference Range Interpretation Comments INR (test code = INR) 1.14 1 0.85-1.17 [place] [address]-12-06 18:44:00 Test Item Value Reference Range Interpretation Comments PTT (test code = PTT) 36.9 s 22.9-35.8 [place] [address]-12-06 18:44:00 Test Item Value Reference Range Interpretation Comments Segs (test code = Segs) 57.6 45.0-75.0 [place] [address]-12-06 18:44:00 Test Item Value Reference Range Interpretation Comments Lymphocytes (test code = Lymphocytes) 33.5 20.0-40.0 [place] [address]-12-06 18:44:00 Test Item Value Reference Range Interpretation Comments Monocytes (test code = Monocytes) 6.3 2.0-12.0 [address]12-06 18:44:00 Test Item Value Reference Range Interpretation Comments Eosinophils (test code = 2.0 See_Comment [A utomated message] The Eosinophils) system which ge nerated this result tra nsmitted reference range : <=4.0. The reference r calli was not used to int erpret this result as normal/abnormal . [place] [address]-12-06 18:44:00 Test Item Value Reference Range Interpretation Comments Basophils (test code = 0.6 See_Comment [Aut omated message] The Basophils) system which ge nerated this result tra nsmitted reference range : <=1.0. The reference r calli was not used to int erpret this result as normal/abnormal . [place] [address]-12-06 18:44:00 Test Item Value Reference Range Interpretation Comments Neutrophils # (test code = Neutrophils 2.9 1.5-8.1 #) [place] [address]-12-06 18:44:00 Test Item Value Reference Range Interpretation Comments Lymphocytes # (test code = Lymphocytes 1.7 1.0-5.5 #) [place] [address]-12-06 18:44:00 Test Item Value Reference Range Interpretation Comments Monocytes # (test code 0.3 See_Comment [Aut omated message] The = Monocytes #) system which generated this result tra nsmitted reference range : <=0.8. The reference r calli was not used to int erpret this result as normal/abnormal . [address]12-06 18:44:00 Test Item Value Reference Range Interpretation Comments Eosinophils # (test code 0.1 See_Comment [A utomated message] The = Eosinophils #) system whic h generated this result tra nsmitted reference range : <=0.5. The reference r calli was not used to int erpret this result as normal/abnormal . [facility] CenterAqcjtvhSOJMJUMIQN2355-23-79 18:44:00 Test Item Value Reference Range Interpretation Comments Coronavirus (COVID-19) Not Detected (02/28/22 CHERIE (test code = 12:44 PM) Coronavirus (COVID-19) CHERIE) [facility] CenterXmuzvhzJIVAPMMLOD8784-21-78 18:44:00 Test Item Value Reference Range Interpretation Comments Coronavirus (COVID-19) Not Detected (02/28/22 CHERIE (test code = 12:44 PM) Coronavirus (COVID-19) CHERIE) [facility]evilleR[facility] Up [id number] 18:44:00 Test Item Value Reference Range Interpretation Comments HS Troponin I Baseline (test code = HS 15 Troponin I Baseline) [facility] BeevilleViewex [id number] 18:44:00 Test Item Value Reference Range Interpretation Comments Total CK (test code = Total CK) 54 12-191 [place] [employer] [id number] 18:44:00 Test Item Value Reference Range Interpretation Comments Glucose Lvl (test code = Glucose Lvl) 88 70-99 [facility]evilleBioGreen [facility] [id number] 18:44:00 Test Item Value Reference Range Interpretation Comments BUN (test code = BUN) 50 7-22 [place] [employer] [id number] 18:44:00 Test Item Value Reference Range Interpretation Comments Creatinine Lvl (test code = Creatinine 6.77 0.50-1.40 Lvl) [facility] BeevilleSynGas North [id number] 18:44:00 Test Item Value Reference Range Interpretation Comments Sodium Lvl (test code = Sodium Lvl) 135 135-145 [place] [employer]2022-12-06 18:44:00 Test Item Value Reference Range Interpretation Comments Potassium Lvl (test code = Potassium 4.3 3.5-5.1 Lvl) [facility]evilleBioGreen [facility] [id number] 18:44:00 Test Item Value Reference Range Interpretation Comments Chloride Lvl (test code = Chloride Lvl) 98 95-109 [address]12-06 18:44:00 Test Item Value Reference Range Interpretation Comments CO2 (test code = CO2) 29 24-32 [address]12-06 18:44:00 Test Item Value Reference Range Interpretation Comments AGAP (test code = AGAP) 12.3 10.0-20.0 [address]12-06 18:44:00 Test Item Value Reference Range Interpretation Comments Calcium Lvl (test code = Calcium Lvl) 8.9 8.5-10.[address]12-06 18:44:00 Test Item Value Reference Range Interpretation Comments B/C Ratio (test code = B/C Ratio) 7 1 6-[address]12-06 18:44:00 Test Item Value Reference Range Interpretation Comments Total Protein (test code = Total 6.8 6.4-8.4 Protein) [address]12-06 18:44:00 Test Item Value Reference Range Interpretation Comments Albumin Lvl (test code = Albumin Lvl) 2.6 3.5-5.[address]12-06 18:44:00 Test Item Value Reference Range Interpretation Comments Globulin (test code = Globulin) 4.2 2.7-4.[address]12-06 18:44:00 Test Item Value Reference Range Interpretation Comments A/G Ratio (test code = A/G Ratio) 0.6 1 0.7-1.[address]12-06 18:44:00 Test Item Value Reference Range Interpretation Comments ALT (test code = ALT) no gt See_Comment [Auto mated message] The system which ge nerated this result transmit sally reference range : <=65. The reference range was not used to interpr et this result as henrry l/abnormal. [facility] CenterQio [id number] 18:44:00 Test Item Value Reference Range Interpretation Comments AST (test code = AST) 10 See_Comment [Auto mated message] The system which ge nerated this result transmit sally reference range : <=37. The reference range was not used to interpr et this result as henrry l/abnormal. [facility] CenterQ[facility] [id number] 18:44:00 Test Item Value Reference Range Interpretation Comments Alk Phos (test code = Alk Phos) 129 39-136 [facility]2022-12-06 18:44:00 Test Item Value Reference Range Interpretation Comments Bili Total (test code = Bili Total) 0.4 0.2-1.3 [place] 841722-12-06 18:44:00 Test Item Value Reference Range Interpretation Comments eGFR (test code = eGFR) 7 [facility]Xaq[facility]uxeDRJYTTOYQ0628[facility] 18:44:00 Test Item Value Reference Range Interpretation Comments HS Troponin I Baseline (test code = HS 15 Troponin I Baseline) [facility] HospitalKrnqxpgEQXZWXHHY2817-56-97 18:44:00 Test Item Value Reference Range Interpretation Comments Total CK (test code = Total CK) 54 12-191 [place] 740132-12-06 18:44:00 Test Item Value Reference Range Interpretation Comments PT (test code = PT) 14.5 s 12.0-14.7 [place] 740132-12-06 18:44:00 Test Item Value Reference Range Interpretation Comments INR (test code = INR) 1.14 1 0.85-1.17 [facility]kinZtkgrvpMHVXGHQZBR6954-57-23 18:44:00 Test Item Value Reference Range Interpretation Comments PTT (test code = PTT) 36.9 s 22.9-35.8 [place] 740132-12-06 18:44:00 Test Item Value Reference Range Interpretation Comments WBC (test code = WBC) 5.0 3.7-10.4 [facility]ufkinJgjwzbaJULHRSXDSF6400-00-04 18:44:00 Test Item Value Reference Range Interpretation Comments RBC (test code = RBC) 3.28 4.20-5.40 [place] 740132-12-06 18:44:00 Test Item Value Reference Range Interpretation Comments Hgb (test code = Hgb) 11.3 12.0-16.0 [place] 740132-12-06 18:44:00 Test Item Value Reference Range Interpretation Comments Hct (test code = Hct) 34.1 36.0-48.0 [place] [address]-12-06 18:44:00 Test Item Value Reference Range Interpretation Comments MCV (test code = MCV) 104.0 80.0-98.0 [place] [address]-12-06 18:44:00 Test Item Value Reference Range Interpretation Comments MCH (test code = MCH) 34.4 pg 27.0-31.0 [place] [address]-12-06 18:44:00 Test Item Value Reference Range Interpretation Comments MCHC (test code = MCHC) 33.1 32.0-36.0 [place] [address]-12-06 18:44:00 Test Item Value Reference Range Interpretation Comments RDW (test code = RDW) 17.9 11.5-14.5 [place] [address]-12-06 18:44:00 Test Item Value Reference Range Interpretation Comments Platelet (test code = Platelet) 302 133-450 [place] 740132-12-06 18:44:00 Test Item Value Reference Range Interpretation Comments MPV (test code = MPV) 8.1 7.4-10.[address]12-06 18:44:00 Test Item Value Reference Range Interpretation Comments PT (test code = PT) 14.5 s 12.0-14.7 [place] [address]-12-06 18:44:00 Test Item Value Reference Range Interpretation Comments INR (test code = INR) 1.14 1 0.85-1.17 [place] [address]-12-06 18:44:00 Test Item Value Reference Range Interpretation Comments PTT (test code = PTT) 36.9 s 22.9-35.8 [place] [address]-12-06 18:44:00 Test Item Value Reference Range Interpretation Comments Segs (test code = Segs) 57.6 45.0-75.0 [place] [address]-12-06 18:44:00 Test Item Value Reference Range Interpretation Comments Lymphocytes (test code = Lymphocytes) 33.5 20.0-40.0 [place] [address]-12-06 18:44:00 Test Item Value Reference Range Interpretation Comments Monocytes (test code = Monocytes) 6.3 2.0-12.0 [place] [address]-12-06 18:44:00 Test Item Value Reference Range Interpretation Comments Eosinophils (test code = 2.0 See_Comment [A utomated message] The Eosinophils) system which ge nerated this result tra nsmitted reference range : <=4.0. The reference r calli was not used to int erpret this result as normal/abnormal . [id number] 18:44:00 Test Item Value Reference Range Interpretation Comments Basophils (test code = 0.6 See_Comment [Aut omated message] The Basophils) system which ge nerated this result tra nsmitted reference range : <=1.0. The reference r calli was not used to int erpret this result as normal/abnormal . [facility] LufkinIjiplkbROYYPCHIQE8186-02-85 18:44:00 Test Item Value Reference Range Interpretation Comments Neutrophils # (test code = Neutrophils 2.9 1.5-8.1 #) [facility] LufkinUjumxixEWQCDITCAB1534-79-63 18:44:00 Test Item Value Reference Range Interpretation Comments Lymphocytes # (test code = Lymphocytes 1.7 1.0-5.5 #) [facility]ufkinHyosnyvUBQVLCKYUU3731-01-49 18:44:00 Test Item Value Reference Range Interpretation Comments Monocytes # (test code 0.3 See_Comment [Aut omated message] The = Monocytes #) system which generated this result tra nsmitted reference range : <=0.8. The reference r calli was not used to int erpret this result as normal/abnormal . [facility]kinJgkuxzcMDDZONTHYL9233-04-48 18:44:00 Test Item Value Reference Range Interpretation Comments Eosinophils # (test code 0.1 See_Comment [A utomated message] The = Eosinophils #) system whic h generated this result tra nsmitted reference range : <=0.5. The reference r calli was not used to int erpret this result as normal/abnormal . [facility] CampusCalhhoyAHGPKQXURS1924-09-95 18:44:00 Test Item Value Reference Range Interpretation Comments Coronavirus (COVID-19) Not Detected (02/28/22 CHERIE (test code = 12:44 PM) Coronavirus (COVID-19) CHERIE) [facility] CampusYpqkqjcZCYATVVUGL7998-69-19 18:44:00 Test Item Value Reference Range Interpretation Comments Coronavirus (COVID-19) Not Detected (02/28/22 CHERIE (test code = 12:44 PM) Coronavirus (COVID-19) CHERIE) [facility]DIMCLAR[facility] TH[id number] 18:44:00 Test Item Value Reference Range Interpretation Comments HS Troponin I Baseline (test code = HS 15 Troponin I Baseline) [facility]CARD[facility] [id number] 18:44:00 Test Item Value Reference Range Interpretation Comments Total CK (test code = Total CK) 54 12-191 [facility]2022-12-06 18:44:00 Test Item Value Reference Range Interpretation Comments Glucose Lvl (test code = Glucose Lvl) 88 70-99 [facility]2022-12-06 18:44:00 Test Item Value Reference Range Interpretation Comments BUN (test code = BUN) 50 7-22 [facility]2022-12-06 18:44:00 Test Item Value Reference Range Interpretation Comments Creatinine Lvl (test code = Creatinine 6.77 0.50-1.40 Lvl) [facility]2022-12-06 18:44:00 Test Item Value Reference Range Interpretation Comments Sodium Lvl (test code = Sodium Lvl) 135 135-145 [facility]2022-12-06 18:44:00 Test Item Value Reference Range Interpretation Comments Potassium Lvl (test code = Potassium 4.3 3.5-5.1 Lvl) [facility]2022-12-06 18:44:00 Test Item Value Reference Range Interpretation Comments Chloride Lvl (test code = Chloride Lvl) 98 95-109 [facility]2022-12-06 18:44:00 Test Item Value Reference Range Interpretation Comments CO2 (test code = CO2) 29 24-32 [facility]2022-12-06 18:44:00 Test Item Value Reference Range Interpretation Comments AGAP (test code = AGAP) 12.3 10.0-20.0 [facility] [id number] 18:44:00 Test Item Value Reference Range Interpretation Comments Calcium Lvl (test code = Calcium Lvl) 8.9 8.5-10.5 [facility] [id number] 18:44:00 Test Item Value Reference Range Interpretation Comments B/C Ratio (test code = B/C Ratio) 7 1 6-25 [place] 841722-12-06 18:44:00 Test Item Value Reference Range Interpretation Comments Total Protein (test code = Total 6.8 6.4-8.4 Protein) [facility]2022-12-06 18:44:00 Test Item Value Reference Range Interpretation Comments Albumin Lvl (test code = Albumin Lvl) 2.6 3.5-5.0 [facility] [id number] 18:44:00 Test Item Value Reference Range Interpretation Comments Globulin (test code = Globulin) 4.2 2.7-4.2 [place] 841722-12-06 18:44:00 Test Item Value Reference Range Interpretation Comments A/G Ratio (test code = A/G Ratio) 0.6 1 0.7-1.6 [address]12-06 18:44:00 Test Item Value Reference Range Interpretation Comments ALT (test code = ALT) no gt See_Comment [Auto mated message] The system which ge nerated this result transmit sally reference range : <=65. The reference range was not used to interpr et this result as henrry l/abnormal. [facility] [id number] 18:44:00 Test Item Value Reference Range Interpretation Comments AST (test code = AST) 10 See_Comment [Auto mated message] The system which ge nerated this result transmit sally reference range : <=37. The reference range was not used to interpr et this result as henrry l/abnormal. [facility]evilleBio[facility] [id number] 18:44:00 Test Item Value Reference Range Interpretation Comments Alk Phos (test code = Alk Phos) 129 39-136 [facility]evilleBio[facility] [id number] 18:44:00 Test Item Value Reference Range Interpretation Comments Bili Total (test code = Bili Total) 0.4 0.2-1.3 [facility] [id number] 18:44:00 Test Item Value Reference Range Interpretation Comments eGFR (test code = eGFR) 7 [place] [address]-12-06 18:44:00 Test Item Value Reference Range Interpretation Comments HS Troponin I Baseline (test code = HS 15 Troponin I Baseline) [place] 462112-12-06 18:44:00 Test Item Value Reference Range Interpretation Comments Total CK (test code = Total CK) 54 12-191 [place] 740132-12-06 18:44:00 Test Item Value Reference Range Interpretation Comments PT (test code = PT) 14.5 s 12.0-14.7 [place] [address]-12-06 18:44:00 Test Item Value Reference Range Interpretation Comments INR (test code = INR) 1.14 1 0.85-1.17 [place] [address]-12-06 18:44:00 Test Item Value Reference Range Interpretation Comments PTT (test code = PTT) 36.9 s 22.9-35.8 [place] [address]-12-06 18:44:00 Test Item Value Reference Range Interpretation Comments WBC (test code = WBC) 5.0 3.7-10.4 [place] [address]-12-06 18:44:00 Test Item Value Reference Range Interpretation Comments RBC (test code = RBC) 3.28 4.20-5.[address]12-06 18:44:00 Test Item Value Reference Range Interpretation Comments Hgb (test code = Hgb) 11.3 12.0-16.0 [place] [address]-12-06 18:44:00 Test Item Value Reference Range Interpretation Comments Hct (test code = Hct) 34.1 36.0-48.0 [place] [address]-12-06 18:44:00 Test Item Value Reference Range Interpretation Comments MCV (test code = MCV) 104.0 80.0-98.0 [place] [address]-12-06 18:44:00 Test Item Value Reference Range Interpretation Comments MCH (test code = MCH) 34.4 pg 27.0-31.0 [place] [address]-12-06 18:44:00 Test Item Value Reference Range Interpretation Comments MCHC (test code = MCHC) 33.1 32.0-36.0 [place] [address]-12-06 18:44:00 Test Item Value Reference Range Interpretation Comments RDW (test code = RDW) 17.9 11.5-14.5 [place] [address]-12-06 18:44:00 Test Item Value Reference Range Interpretation Comments Platelet (test code = Platelet) 302 133-450 [place] [address]-12-06 18:44:00 Test Item Value Reference Range Interpretation Comments MPV (test code = MPV) 8.1 7.4-10.4 [place] [address]-12-06 18:44:00 Test Item Value Reference Range Interpretation Comments PT (test code = PT) 14.5 s 12.0-14.7 [place] 740132-12-06 18:44:00 Test Item Value Reference Range Interpretation Comments INR (test code = INR) 1.14 1 0.85-1.17 [place] [address]-12-06 18:44:00 Test Item Value Reference Range Interpretation Comments PTT (test code = PTT) 36.9 s 22.9-35.8 [place] [address]-12-06 18:44:00 Test Item Value Reference Range Interpretation Comments Segs (test code = Segs) 57.6 45.0-75.0 [place] [address]-12-06 18:44:00 Test Item Value Reference Range Interpretation Comments Lymphocytes (test code = Lymphocytes) 33.5 20.0-40.0 [place] [address]-12-06 18:44:00 Test Item Value Reference Range Interpretation Comments Monocytes (test code = Monocytes) 6.3 2.0-12.0 [place] [address]-12-06 18:44:00 Test Item Value Reference Range Interpretation Comments Eosinophils (test code = 2.0 See_Comment [A utomated message] The Eosinophils) system which ge nerated this result tra nsmitted reference range : <=4.0. The reference r calli was not used to int erpret this result as normal/abnormal . [place] 740132-12-06 18:44:00 Test Item Value Reference Range Interpretation Comments Basophils (test code = 0.6 See_Comment [Aut omated message] The Basophils) system which ge nerated this result tra nsmitted reference range : <=1.0. The reference r calli was not used to int erpret this result as normal/abnormal . [place] 740132-12-06 18:44:00 Test Item Value Reference Range Interpretation Comments Neutrophils # (test code = Neutrophils 2.9 1.5-8.1 #) [place] [address]-12-06 18:44:00 Test Item Value Reference Range Interpretation Comments Lymphocytes # (test code = Lymphocytes 1.7 1.0-5.5 #) [place] 740132-12-06 18:44:00 Test Item Value Reference Range Interpretation Comments Monocytes # (test code 0.3 See_Comment [Aut omated message] The = Monocytes #) system which generated this result tra nsmitted reference range : <=0.8. The reference r calli was not used to int erpret this result as normal/abnormal . [facility]ztqamdSPZUACZGJE1631-01-61 18:44:00 Test Item Value Reference Range Interpretation Comments Eosinophils # (test code 0.1 See_Comment [A utomated message] The = Eosinophils #) system ic h generated this result tra nsmitted reference range : <=0.5. The reference r calli was not used to int erpret this result as normal/abnormal . [facility]WrebrtnVGWCYPKJFI8589-88-23 18:44:00 Test Item Value Reference Range Interpretation Comments Coronavirus (COVID-19) Not Detected (02/28/22 CHERIE (test code = 12:44 PM) Coronavirus (COVID-19) CHERIE) [facility] CampusIkrfysmZSVCCTWMWK8336-60-67 18:44:00 Test Item Value Reference Range Interpretation Comments Coronavirus (COVID-19) Not Detected (02/28/22 CHERIE (test code = 12:44 PM) Coronavirus (COVID-19) CHERIE) [facility] LAB [id number] 09:57:05 Test Item Value Reference Range Interpretation Comments SCAN RESULT (test code = See scanned report [id number]) See scanned reportPOC-Glucose [id number] 12:00:16 Test Item Value Reference Range Interpretation Comments POC-Glucose Meter (test 146 mg/dL 70-110 H : TE STED AT [facility] code = 1538) [address] [place] [address], 770 30: Private Detective/Techni daniel ID = [id number] for TEZENO, BANDAR Lab Interpretation (test Abnormal code = 20126-3) [facility] [id number] 12:00:16 Test Item Value Reference Range Interpretation Comments POC-Glucose Meter (test 146 mg/dL 70-110 H : TE STED AT [facility] code = 1538) [address] [facility], 770 30: Private Detective/Techni daniel ID = [id number] for TEZENO, BANDAR Lab Interpretation (test Abnormal code = 04384-9) [facility] [id number] 12:00:16 Test Item Value Reference Range Interpretation Comments POC-Glucose Meter (test 146 mg/dL 70-110 H : TE STED AT [facility] code = 1538) [address] [facility], 770 30: Private Detective/Techni daniel ID = [id number] for BANDAR BARR Lab Interpretation (test Abnormal code = 16270-9) [facility] [id number] 12:00:16 Test Item Value Reference Range Interpretation Comments POC-GLUCOSE METER 146 mg/dL 70-110 H : [facility] (test code = [facility] [place], 1538) [address]: Private Detective/Techni daniel ID = [id number] for BANDAR SUAZO BASIC METABOLIC [id number] 07:05:24 Test Item Value Reference Range Interpretation [...] S NOT APPLICABLE FOR DIALYSIS PATIEN TS. Private Detective ID - BANDAR MPOCT-GLUCOSE [id number] 00:56:00 Test Item Value Reference Range Interpretation Comments POC-GLUCOSE METER 98 mg/dL 70-110 : [facility] (test code = [facility] [place], 1538) 05202: Private Detective/Techni daniel ID = [id number] for GREE N (VHILDA [place] POCT-GLUCOSE [id number] 17:09:29 Test Item Value Reference Range Interpretation Comments POC-GLUCOSE METER 110 mg/dL 70-110 : TESTED A T [facility] 6720 (CARLY) (test code DASHAWN [facility], = 1538) [address]: Private Detective/Techni daniel ID = [id number] for LAUREN Lester SARS-CoV2/RT-PCR (Asymptomatic ONLY)2021-09-23 15:25:18 Test Item Value Reference Range Interpretation Comments SARS-COV2/RT-PCR (test Positive Not Detected, AA code = 04473-3) Negative, See external report for linked test SARS-COV-2 PERFORMING [facility] LAB (test code = 18470-4) CECELIA (test code = CECELIA) Results are [...] of the Act. Fact Sheet for Healthcare Providers:https://www.[employer]/sites/default /files/product/document s/Fact_Sheet_HC_Provide hc_Netp_DPEP-CxO-1.pdf Fact Sheet for Healthcare Patients:https://www.[employer]/sites/default/ files/product/documents /Fact_Sheet_Patients_Ly sp_AAXD-HaC-5.pdf Performing Laboratory:[facility] [place] [address] Lab Interpretation Abnormal (test code = 95573-4) [facility]2021-09-23 15:25:18 Test Item Value Reference Range Interpretation Comments SARS-COV2/RT-PCR (test Positive Not Detected, AA code = 52821-3) Negative, See external report for linked test SARS-COV-2 PERFORMING [facility] (test code = 92074-7) CECELIA (test code = CECELIA) Results are [...] of the Act. Fact Sheet for Healthcare Providers:https://www.[employer]/sites/default /files/product/document s/Fact_Sheet_HC_Provide pa_Dubl_QFTC-WvX-6.pdf Fact Sheet for Healthcare Patients:https://www.[employer]/sites/default/ files/product/documents /Fact_Sheet_Patients_Ly as_JNII-IbK-5.pdf Performing Laboratory:[facility] [place] [address] Lab Interpretation Abnormal (test code = 98677-1) [facility] (As[facility]omatic ONLY)2021-09-23 15:25:18 Test Item Value Reference Range Interpretation Comments SARS-COV2/RT-PCR (test Positive Not Detected, AA code = 30994-2) Negative, See external report for linked test SARS-COV-2 PERFORMING [facility] (test code = 08406-9) CECELIA (test code = CECELIA) Results are [...] of the Act. Fact Sheet for Healthcare Providers:https://www.[employer]/sites/default /files/product/document s/Fact_Sheet_HC_Provide ix_Lysa_YJAM-DaL-0.pdf Fact Sheet for Healthcare Patients:https://www.[employer]/sites/default/ files/product/documents /Fact_Sheet_Patients_Ly wa_TXSG-JjE-1.pdf Performing Laboratory:[facility] [place] [address] Lab Interpretation Abnormal (test code = 35730-9) [facility] ([facility])2021-09-23 15:25:18 Test Item Value Reference Range Interpretation Comments SARS-COV2/RT-PCR (test Positive Not Detected, Negative, AA code = 8128660) See external report for linked test SARS-COV-2 PERFORMING LAB [facility] (test code = 3068488) Results are for the detection of SARS-CoV-2 [...] 564(g) of the Act.Fact Sheet for Healthcare Providers:https://www.[employer]/sites/default/files/product/documen ts/Dvwc_Xkpzn_XT_Qkikhcugi_Ehdw_WNKV-GeM-8.pdfFact Sheet for Healthcare Patients:https://www.[employer]/sites/default/files/product/documents/Akrq_Lzbix_Ctjachwf_Ispu_CPJB-NyD-5.pdf Performing Laboratory:[place] [id number], [place] [address]HKVD-CGTAAJG [id number] 08:15:54 Test Item Value Reference Range Interpretation Comments POC-GLUCOSE METER 89 mg/dL 70-110 : TESTED A T [facility] 6720 (BEAKER) (test code = [facility] [place], 1538) 10097: Private Detective/Techni daniel ID = [id number] for VIDA Chapman SuDarinTACOJOSE DEVANG POCT-GLUCOSE [id number] 06:25:58 Test Item Value Reference Range Interpretation Comments POC-GLUCOSE METER 88 mg/dL 70-110 : TESTED A T [facility] 6720 (BEAKER) (test code = [facility] Kevin [facility], 1538) [address]: Private Detective/Techni daniel ID = [id number] for ALLISON ARMAS BASIC METABOLIC [id number] 04:22:37 Test Item Value Reference Range Interpretation [...] 358) GLUCOSE RANDOM 143 mg/dL 70-105 H (CARLY) (test code = 652) CALCIUM (YONNYAKER) 9.1 mg/dL 8.4-10.2 (test code = 697) EGFR (CARLY) (test 13 mL/min/1.73 ESTIMA SALLY GFR IS code = 1092) sq m NOT ACCURATE CREATININE CLEARANCE IN PREDICTING GLOMERULAR FILTRATION RATE . ESTIMATED GFR I S NOT APPLICABLE FOR DIALYSIS PATIEN TS. Private Detective ID - THEE QGpnutgicd5193-67-87 04:16:36 Test Item Value Reference Range Interpretation Comments Magnesium (test code = 2.5 mg/dL 1.6-2.6 96315-0) CECELIA (test code = CECELIA) Private Detective ID - THEE G Lab Interpretation (test Normal code = 65044-8) [facility] 04:16:36 Test Item Value Reference Range Interpretation Comments Phosphorus (test code = 2.8 mg/dL 2.3-4.7 2777-1) CECELIA (test code = CECELIA) Private Detective ID - THEE G Lab Interpretation (test Normal code = 68594-6) [facility]Reactive [id number] 04:16:36 Test Item Value Reference Range Interpretation Comments CRP (test code = 676) 11.91 mg/dL 0.00-0.50 H CECELIA (test code = CECELIA) Private Detective ID - THEE G Lab Interpretation (test Abnormal code = 44749-0) [facility]20[facility] 04:16:36 Test Item Value Reference Range Interpretation Comments Magnesium (test code = 2.5 mg/dL 1.6-2.6 86288-9) CECELIA (test code = CECELIA) Private Detective ID - THEE G Lab Interpretation (test Normal code = 88572-1) [facility] 04:16:36 Test Item Value Reference Range Interpretation Comments Phosphorus (test code = 2.8 mg/dL 2.3-4.7 2777-1) CECELIA (test code = CECELIA) Private Detective ID - THEE G Lab Interpretation (test Normal code = 28448-9) [facility] [id number] 04:16:36 Test Item Value Reference Range Interpretation Comments CRP (test code = 676) 11.91 mg/dL 0.00-0.50 H CECELIA (test code = CECELIA) Private Detective ID - THEE G Lab Interpretation (test Abnormal code = 48544-3) [facility]20[facility] 04:16:36 Test Item Value Reference Range Interpretation Comments Magnesium (test code = 2.5 mg/dL 1.6-2.6 23861-9) CECELIA (test code = CECELIA) Private Detective ID - THEE G Lab Interpretation (test Normal code = 17151-5) [facility] 04:16:36 Test Item Value Reference Range Interpretation Comments Phosphorus (test code = 2.8 mg/dL 2.3-4.7 2777-1) CECELIA (test code = CECELIA) Private Detective ID - THEE G Lab Interpretation (test Normal code = 48611-9) [facility] [id number] 04:16:36 Test Item Value Reference Range Interpretation Comments CRP (test code = 676) 11.91 mg/dL 0.00-0.50 H CECELIA (test code = CECELIA) Private Detective ID - THEE G Lab Interpretation (test Abnormal code = 77523-0) [facility]20[facility] 04:16:36 Test Item Value Reference Range Interpretation Comments MAGNESIUM (BEAKER) (test code = 2.5 mg/dL 1.6-2.6 627) Private Detective ID - THEE [id number] 04:16:36 Test Item Value Reference Range Interpretation Comments PHOSPHORUS (BEAKER) (test code = 2.8 mg/dL 2.3-4.7 604) Private Detective ID - THEE GC-REACTIVE [id number] 04:16:36 Test Item Value Reference Range Interpretation Comments C-REACTIVE PROTEIN (BEAKER) (test 11.91 mg/dL 0.00-0.50 H code = 676) Private Detective ID - THEE GCBC (Hemogram only)2021-09-23 03:52:42 Test Item Value Reference Range Interpretation Comments WBC (test code = 6690-2) 10.1 See_Comment [A utomated message] The system [employer] generated this result transmitted ref erence range: 3.5 - 10 .5 K/L. The refe rence range was not u sed to interpret this result as normal/abnor mal. RBC (test code = 789-8) 2.66 See_Comment L [Au tomated message] The system [employer] generated this result transmitted ref erence range: 3.93 - 5 .22 M/L. The refe rence range was not u sed to interpret this result as normal/abnor mal. MCHC (test code = 786-4) 31.5 See_Comment L [A utomated message] The system [employer] generated this result transmitted ref erence range: [...] See_Comment [Aut omated message] 777-3) The system [employer] generated this result transmitted ref erence range: 150 - 45 0 K/CU MM. The referen ce range was not u sed to interpret this result as normal/abnor mal. MPV (test code = 9.4 fL 9.4-12.3 15731-4) nRBC (test code = 413) 0 See_Comment [Aut omated message] The system [employer] generated this result transmitted ref erence range: 0 - 0 /1 00 WBC. The refere nce range was not u sed to interpret this result as normal/abnor mal. Lab Interpretation (test Abnormal code = 01616-2) [facility] (Hemogram only)2021-09-23 03:52:42 Test Item Value Reference Range Interpretation Comments WBC (test code = 6690-2) 10.1 See_Comment [A utomated message] The system [employer] generated this result transmitted ref erence range: 3.5 - 10 .5 K/L. The refe rence range was not u sed to interpret this result as normal/abnor mal. RBC (test code = 789-8) 2.66 See_Comment L [Au tomated message] The system [employer] generated this result transmitted ref erence range: 3.93 - 5 .22 M/L. The refe rence range was not u sed to interpret this result as normal/abnor mal. MCHC (test code = 786-4) 31.5 See_Comment L [A utomated message] The system [employer] generated this result transmitted ref erence range: [...] See_Comment [Aut omated message] 777-3) The system [employer] generated this result transmitted ref erence range: 150 - 45 0 K/CU MM. The referen ce range was not u sed to interpret this result as normal/abnor mal. MPV (test code = 9.4 fL 9.4-12.3 40739-7) nRBC (test code = 413) 0 See_Comment [Aut omated message] The system [employer] generated this result transmitted ref erence range: 0 - 0 /1 00 WBC. The refere nce range was not u sed to interpret this result as normal/abnor mal. Lab Interpretation (test Abnormal code = 08244-5) [facility] (Hemogram only)2021-09-23 03:52:42 Test Item Value Reference Range Interpretation Comments WBC (test code = 6690-2) 10.1 See_Comment [A utomated message] The system [employer] generated this result transmitted ref erence range: 3.5 - 10 .5 K/L. The refe rence range was not u sed to interpret this result as normal/abnor mal. RBC (test code = 789-8) 2.66 See_Comment L [Au tomated message] The system [employer] generated this result transmitted ref erence range: 3.93 - 5 .22 M/L. The refe rence range was not u sed to interpret this result as normal/abnor mal. MCHC (test code = 786-4) 31.5 See_Comment L [A utomated message] The system [employer] generated this result transmitted ref erence range: [...] See_Comment [Aut omated message] 777-3) The system [employer] generated this result transmitted ref erence range: 150 - 45 0 K/CU MM. The referen ce range was not u sed to interpret this result as normal/abnor mal. MPV (test code = 9.4 fL 9.4-12.3 06040-4) nRBC (test code = 413) 0 See_Comment [Aut omated message] The system [employer] generated this result transmitted ref erence range: 0 - 0 /1 00 WBC. The refere nce range was not u sed to interpret this result as normal/abnor mal. Lab Interpretation (test Abnormal code = 43154-2) [facility] (HEMOGRAM ONLY)2021-09-23 03:52:42 Test Item Value Reference [...] 0-0 (BEAKER) (test code = 413) POCT-GLUCOSE [id number] 23:51:03 Test Item Value Reference Range Interpretation Comments POC-GLUCOSE METER 158 mg/dL 70-110 H : TESTED A T [facility] 6720 (BEAKER) (test code = [place], 1538) [address]: Private Detective/Techni daniel ID = [id number] for ALLISON HORTA CT, BRAIN, WITHOUT [id number] 17:58:00Unlisted Reason for Exam - Click Yes and Enter Reason Below->No [facility] : 1965 Sex: [...] Signed: Ruth Benítez Verified Date/Time: 09/22/2021 17:58:57 [id number] 15:11:51 Test Item Value Reference Range Interpretation Comments THYROID STIMULATING HORMONE 4.461 uIU/mL 0.350-4.940 (BEAKER) (test code = 772) Private Detective ID - BSVITAMIN [id number] 15:11:51 Test Item Value Reference Range Interpretation Comments VITAMIN B12 (BEAKER) (test code = 647 pg/mL 213-816 774) Private Detective ID - BSPOCT-GLUCOSE [id number] 11:59:22 Test Item Value Reference Range Interpretation Comments POC-GLUCOSE METER 142 mg/dL 70-110 H : TESTED A T [facility] 6720 (BEAKER) (test code [facility], = 1538) [address]3876: Private Detective/Techni daniel ID = [id number] for LAUREN Lester DEVANG POCT-GLUCOSE [id number] 23:31:55 Test Item Value Reference Range Interpretation Comments POC-GLUCOSE METER 130 mg/dL 70-110 H : TESTED A T [facility] 6720 (BEAKER) (test code = [facility] Kevin [facility], 1538) 45552: Private Detective/Techni daniel ID = [id number] for Nichole pidoBeckVickie VALPROIC ACID LEVEL, [id number] 19:13:57 Test Item Value Reference Range Interpretation Comments VALPROIC ACID TOTAL (BEAKER) (test 53 ug/mL 50-100 code = 924) Therapeutic range for some clinical conditions may be >100 ug/mLOperator ID - BSBLOOD [id number] 16:01:08 Test Item Value Reference Range Interpretation Comments CULTURE (BEAKER) (test No growth in 5 days code = 1095) BLOOD [id number] 16:01:07 Test Item Value Reference Range Interpretation Comments CULTURE (BEAKER) (test No growth in 5 days code = 1095) POCT-GLUCOSE [id number] 11:43:19 Test Item Value Reference Range Interpretation Comments POC-GLUCOSE METER 105 mg/dL 70-110 : TESTED A T [facility] 6720 (BEAKER) (test code = [facility] [place], 1538) 73362: Private Detective/Techni daniel ID = [id number] for LEENA ROTHMAN POCT-GLUCOSE [id number] 06:58:18 Test Item Value Reference Range Interpretation Comments POC-GLUCOSE METER 138 mg/dL 70-110 H : TESTED A T [facility] 6720 (BEAKER) (test code = [facility] [place], 1538) 8[address]99: Private Detective/Techni daniel ID = [id number] for Amparo Warren BASIC METABOLIC [id number] 05:34:52 Test Item Value Reference Range Interpretation [...] S NOT APPLICABLE FOR DIALYSIS PATIEN TS. Private Detective ID - DANA LC-REACTIVE [id number] 05:34:35 Test Item Value Reference Range Interpretation Comments C-REACTIVE PROTEIN (BEAKER) (test 17.60 mg/dL 0.00-0.50 H code = 676) Private Detective ID - DANA [id number] 05:34:34 Test Item Value Reference Range Interpretation Comments MAGNESIUM (BEAKER) (test code = 2.4 mg/dL 1.6-2.6 627) Private Detective ID - DANA [id number] 05:34:34 Test Item Value Reference Range Interpretation Comments PHOSPHORUS (BEAKER) (test code = 3.2 mg/dL 2.3-4.7 604) Private Detective ID - DANA LPOCT-GLUCOSE [id number] 23:43:01 Test Item Value Reference Range Interpretation Comments POC-GLUCOSE METER 113 mg/dL 70-110 H : TESTED A T [facility] 6720 (BEAKER) (test code = [facility] [place], 1538) 12533: Private Detective/Techni daniel ID = [id number] for Tati son, Amparo POCT-GLUCOSE [id number] 18:10:57 Test Item Value Reference Range Interpretation Comments POC-GLUCOSE METER 109 mg/dL 70-110 : TESTED A T [facility] 6720 (BEAKER) (test code = [facility] [place], 1538) 22020: Private Detective/Techni daniel ID = [id number] for TE ABHAY, BANDAR BLOOD [id number] 17:00:52 Test Item Value Reference Range Interpretation Comments CULTURE (BEAKER) (test No growth in 5 days code = 1095) POCT-GLUCOSE [id number] 12:23:54 Test Item Value Reference Range Interpretation Comments POC-GLUCOSE METER 102 mg/dL 70-110 : TESTED A T [facility] 6720 (BEAKER) (test code = [facility] [place], 1538) 19532: Private Detective/Techni daniel ID = [id number] for TE ABHAY, BANDAR POCT-GLUCOSE [id number] 06:03:14 Test Item Value Reference Range Interpretation Comments POC-GLUCOSE METER 117 mg/dL 70-110 H : TESTED A T [facility] 6720 (BEAKER) (test code = [facility] [place], 1538) 89931: Private Detective/Techni daniel ID = [id number] for ALLISON HORTA POCT-GLUCOSE [id number] 23:34:08 Test Item Value Reference Range Interpretation Comments POC-GLUCOSE METER 130 mg/dL 70-110 H : TESTED A T [facility] 6720 (BEAKER) (test code = [facility] [place], 1538) 89839: Private Detective/Techni daniel ID = [id number] for RA WEEMS, ALLISON POCT-GLUCOSE [id number] 17:25:33 Test Item Value Reference Range Interpretation Comments POC-GLUCOSE METER 118 mg/dL 70-110 H : TESTED A T [facility] 6720 (BEAKER) (test code = [facility] [place], 1538) 07553: Private Detective/Techni daniel ID = [id number] for ST OJCIC, NADA POCT-GLUCOSE [id number] 11:37:16 Test Item Value Reference Range Interpretation Comments POC-GLUCOSE METER 110 mg/dL 70-110 : TESTED A T [facility] 6720 (BEAKER) (test code = [facility] [place], 1538) 43081: Private Detective/Techni daniel ID = [id number] for ST OOMERIC, NADA POCT-GLUCOSE [id number] 06:41:12 Test Item Value Reference Range Interpretation Comments POC-GLUCOSE METER 110 mg/dL 70-110 : TESTED A T [facility] 6720 (BEAKER) (test code = [facility] [place], 1538) 79342: Private Detective/Techni daniel ID = [id number] for ANGELIKA STALEY BASIC METABOLIC [id number] 05:33:28 Test Item Value Reference Range Interpretation [...] S NOT APPLICABLE FOR DIALYSIS PATIEN TS. Private Detective ID - THEE [id number] 05:25:46 Test Item Value Reference Range Interpretation Comments MAGNESIUM (BEAKER) (test code = 2.3 mg/dL 1.6-2.6 627) Private Detective ID - THEE GC-REACTIVE [id number] 05:25:46 Test Item Value Reference Range Interpretation Comments C-REACTIVE PROTEIN (BEAKER) (test 17.48 mg/dL 0.00-0.50 H code = 676) Private Detective ID - THEE GPOCT-GLUCOSE [id number] 00:56:08 Test Item Value Reference Range Interpretation Comments POC-GLUCOSE METER 107 mg/dL 70-110 : TESTED A T [facility] 6720 ([email or web address]) (test code = [facility] [place], 153) 53953: Private Detective/Techni daniel ID = [id number] for ANGELIKA STALEY POCT-GLUCOSE [id number] 18:06:33 Test Item Value Reference Range Interpretation Comments POC-GLUCOSE METER 110 mg/dL 70-110 : TESTED A T [facility] 6720 (BEAKER) (test code = [facility] [place], 1538) 71498: Private Detective/Techni daniel ID = [id number] for DONNIE LANGLEY POCT-GLUCOSE [id number] 12:14:38 Test Item Value Reference Range Interpretation Comments POC-GLUCOSE METER 116 mg/dL 70-110 H : TESTED A T [facility] 6720 (BEAKER) (test code = [facility] [place], 153) 81656: Private Detective/Techni daniel ID = [id number] for DONNIE LANGLEY BASIC METABOLIC [id number] 05:21:10 Test Item Value Reference Range Interpretation [...] S NOT APPLICABLE FOR DIALYSIS PATIEN TS. Private Detective ID - THEE [id number] 05:13:01 Test Item Value Reference Range Interpretation Comments PHOSPHORUS (BEAKER) (test code = 2.0 mg/dL 2.3-4.7 L 604) Private Detective ID - THEE [id number] 05:13:00 Test Item Value Reference Range Interpretation Comments MAGNESIUM (BEAKER) (test code = 2.1 mg/dL 1.6-2.6 627) Private Detective ID - THEE GCBC (HEMOGRAM ONLY)2021-09-18 05:08:01 [...] 0-0 (BEAKER) (test code = 413) POCT-GLUCOSE [id number] 17:42:12 Test Item Value Reference Range Interpretation Comments POC-GLUCOSE METER 114 mg/dL 70-110 H : TESTED A T [facility] 6720 (BEAKER) (test code = ANIL Kevin [facility], 1538) 638[address]: Private Detective/Techni daniel ID = [id number] for DONNIE LANGLEY BASIC METABOLIC [id number] 14:00:34 Test Item Value Reference Range Interpretation [...] S NOT APPLICABLE FOR DIALYSIS PATIEN TS. Private Detective ID - BANDAR [id number] 13:54:23 Test Item Value Reference Range Interpretation Comments MAGNESIUM (BEAKER) (test code = 2.2 mg/dL 1.6-2.6 627) Private Detective ID - BANDAR MCBC (HEMOGRAM ONLY)2021-09-17 13:41:41 [...] 0-0 (BEAKER) (test code = 413) POCT-GLUCOSE [id number] 12:17:44 Test Item Value Reference Range Interpretation Comments POC-GLUCOSE METER 106 mg/dL 70-110 : TESTED A T [facility] 6720 (BEAKER) (test code = [place], 1538) 59193: Private Detective/Techni daniel ID = [id number] for DONNIE LANGLEY POCT-GLUCOSE [id number] 22:49:23 Test Item Value Reference Range Interpretation Comments POC-GLUCOSE METER 132 mg/dL 70-110 H : TESTED A T [facility] 6720 (BEAKER) (test code = [place], 1538) 47180: Private Detective/Techni daniel ID = [id number] for ANGELIKA STALEY POCT-GLUCOSE [id number] 17:34:14 Test Item Value Reference Range Interpretation Comments POC-GLUCOSE METER 122 mg/dL 70-110 H : TESTED Mikala T [facility] 6720 (CARLY) (test code = [place], 1538) 0[address]: Private Detective/Techni daniel ID = [id number] for CATHY MONTOYA SARS-COV2/RT-PCR ([facility])2021-09-16 13:48:06 Test Item Value Reference Range Interpretation Comments SARS-COV2/RT-PCR (test Positive Not Detected, Negative, AA code = 5902032) See external report for linked test SARS-COV-2 PERFORMING LAB [facility] ANDREEA (test code = 4158534) Results are for the detection of SARS-CoV-2 [...] 564(g) of the Act.Fact Sheet for Healthcare Providers:https://www.[employer] (PRIMP).com/sites/default/files/product/documen ts/Pwcc_Dbdaw_AL_Rwzxxerzr_Gufh_BLAN-HcM-5.pdfFact Sheet for Healthcare Patients:https://www.quidel.c om/sites/default/files/product/documents/Rkcc_Ewpyb_Ypangqmi_Utap_QOVQ-XjY-4.pdf Performing Laboratory:[facility], [place] [address]RJRW-CSTBALK [id number] 11:26:15 Test Item Value Reference Range Interpretation Comments POC-GLUCOSE METER 108 mg/dL 70-110 : TESTED A T [facility] 6720 (BEAKER) (test code = [facility] [place], 1538) 37905: Private Detective/Techni daniel ID = [id number] for CATHY MONTOYA POCT-GLUCOSE [id number] 06:27:24 Test Item Value Reference Range Interpretation Comments POC-GLUCOSE METER 97 mg/dL 70-110 : TESTED A T [facility] 6720 (BEAKER) (test code = [facility] [place], 1538) 51309: Private Detective/Techni daniel ID = [id number] for Fidelia Sullivan BASIC METABOLIC [id number] 03:59:42 Test Item Value Reference Range Interpretation [...] S NOT APPLICABLE FOR DIALYSIS PATIEN TS. Private Detective ID - [id number] 03:56:56 Test Item Value Reference Range Interpretation Comments MAGNESIUM (BEAKER) (test code = 2.2 mg/dL 1.6-2.6 627) Private Detective ID - [id number] 03:56:56 Test Item Value Reference Range Interpretation Comments PHOSPHORUS (BEAKER) (test code = 3.9 mg/dL 2.3-4.7 604) Private Detective ID - ADMINVANCOMYCIN LEVEL, [id number] 03:52:49 Test Item Value Reference Range Interpretation [...] 0-0 (BEAKER) (test code = 413) POCT-GLUCOSE [id number] 23:18:54 Test Item Value Reference Range Interpretation Comments POC-GLUCOSE METER 104 mg/dL 70-110 : Notified RN/MD: ([facility]) (test code = TESTED AT [facility] 6720 1538) [facility], [address]: Private Detective/Techni daniel ID = [id number] for BAIRON CHRISTENSEN POCT-GLUCOSE [id number] 17:14:40 Test Item Value Reference Range Interpretation Comments POC-GLUCOSE METER 77 mg/dL 70-110 : TESTED A T [facility] 6720 ([facility]) (test code = [facility] [place], 1538) 81440: Private Detective/Techni daniel ID = [id number] for Umney , Johnumbu POCT-GLUCOSE [id number] 11:36:13 Test Item Value Reference Range Interpretation Comments POC-GLUCOSE METER 99 mg/dL 70-110 : TESTED A T [facility] 6720 ([facility]) (test code = [facility] [place], 1538) 15790: Private Detective/Techni daniel ID = [id number] for Umeh , Johnumbu [id number] 09:38:21 Test Item Value Reference Range Interpretation Comments PROCALCITONIN (BEAKER) (test code 1.28 ng/mL <0.05 H = 3036) SEPSIS RISK (ng/mL)Low: 0.05-0.50Intermediate: 0.51-2.00High: >=2.01LACTIC ACID, [id number] 09:17:37 Test Item Value Reference Range Interpretation Comments LACTATE BLOOD VENOUS (2) (BEAKER) 1.14 mmol/L 0.50-2.20 (test code = 2872) Private Detective ID - PIAYA LCBC W/PLT COUNT & AUTO [id number] 09:09:24 Test Item Value Reference Range Interpretation [...] PERCENT (BEAKER) (test code = 2801) POCT-GLUCOSE [id number] 06:12:37 Test Item Value Reference Range Interpretation Comments POC-GLUCOSE METER 84 mg/dL 70-110 : Notified RN/MD: TESTED (BEAKER) (test code = AT [facility] [address]) [place], [address]: Private Detective/Techni daniel ID = [id number] for MABEL CASTRO POCT-GLUCOSE [id number] 23:36:01 Test Item Value Reference Range Interpretation Comments POC-GLUCOSE METER 97 mg/dL 70-110 : Notified RN/MD: TESTED (BEAKER) (test code = AT [facility] [address] 1538) [place], [address]: Private Detective/Techni daniel ID = [id number] for MABEL CASTRO POCT-GLUCOSE [id number] 18:09:46 Test Item Value Reference Range Interpretation Comments POC-GLUCOSE METER 94 mg/dL 70-110 : TESTED A T [facility] 6720 (BEAKER) (test code = ANIL Brown [facility], 1538) 92878: Private Detective/Techni daniel ID = [id number] for Crystal Varghese CBC (HEMOGRAM ONLY)2021-09-14 17:15:31 [...] = 413) RAD, CHEST, 1 VIEW, NON [id number] 17:12:00Reason for exam:->cough, feverShould this be performed at the bedside?->No [facility]ame: MAKI STRATTON : 1965 Sex: FFINAL REPORT [...] prominent on the left. Signed: Jaime Garcia [facility] Verified Date/Time: 09/14/2021 17:12:21 BASI METABOLIC [id number] 14:20:30 Test Item Value Reference Range Interpretation [...] S NOT APPLICABLE FOR DIALYSIS PATIEN TS. Private Detective ID - [id number] 14:12:02 Test Item Value Reference Range Interpretation Comments MAGNESIUM (BEAKER) 1.9 mg/dL 1.6-2.6 Specimen slightly (test code = 627) hemolyzed Private Detective ID - [id number] 14:12:02 Test Item Value Reference Range Interpretation Comments PHOSPHORUS (BEAKER) 2.2 mg/dL 2.3-4.7 L Specimen slightly (test code = 604) hemolyzed Private Detective ID - BSCBC W/PLT COUNT & AUTO [id number] 14:05:43 Test Item Value Reference Range Interpretation [...] PERCENT (BEAKER) (test code = 2801) POCT-GLUCOSE [id number] 12:21:16 Test Item Value Reference Range Interpretation Comments POC-GLUCOSE METER 82 mg/dL 70-110 : TESTED A T [facility] 6720 (BEAKER) (test code = [facility] [place], 1538) 92177: Private Detective/Techni daniel ID = [id number] for Crystal Varghese POCT-GLUCOSE [id number] 07:31:12 Test Item Value Reference Range Interpretation Comments POC-GLUCOSE METER 94 mg/dL 70-110 : TESTED A T [facility] 6720 (BEAKER) (test code = [facility] [place], 1538) 45109: Private Detective/Techni daniel ID = [id number] for Sam lucas Rita POCT-GLUCOSE [id number] 06:33:11 Test Item Value Reference Range Interpretation Comments POC-GLUCOSE METER 66 mg/dL 70-110 L : TESTED A T [facility] 6720 (BEAKER) (test code = [facility] [place], 1538) 53990: Private Detective/Techni daniel ID = [id number] for SamMakenna macdonalde POCT-GLUCOSE [id number] 01:18:11 Test Item Value Reference Range Interpretation Comments POC-GLUCOSE METER 94 mg/dL 70-110 : TESTED A T [facility] 6720 (BEAKER) (test code = [facility] [place], [facility]8) 53459: Private Detective/Techni daniel ID = [id number] for Sam rsviolet, Najae POCT-GLUCOSE [id number] 00:41:03 Test Item Value Reference Range Interpretation Comments POC-GLUCOSE METER 73 mg/dL 70-110 : TESTED A T [facility] 6720 (BEAKER) (test code = [facility] [place], [facility]) 55639: Private Detective/Techni daniel ID = [id number] for Sam rsviolet, Najae POCT-GLUCOSE [id number] 19:01:25 Test Item Value Reference Range Interpretation Comments POC-GLUCOSE METER 85 mg/dL 70-110 : TESTED A T [facility] 6720 (BEAKER) (test code = [facility] [place], [facility]) 91793: Private Detective/Techni daniel ID = [id number] for Aníbal Flores POCT-GLUCOSE [id number] 12:53:55 Test Item Value Reference Range Interpretation Comments POC-GLUCOSE METER 76 mg/dL 70-110 : TESTED A T [facility] 6720 (BEAKER) (test code = [facility] [place], [facility]) 98047: Private Detective/Techni daniel ID = [id number] for Crystal Varghese POCT-GLUCOSE [id number] 06:10:51 Test Item Value Reference Range Interpretation Comments POC-GLUCOSE METER 74 mg/dL 70-110 : TESTED A T [facility] 6720 (BEAKER) (test code = [facility] [place], 1538) 52424: Private Detective/Techni daniel ID = [id number] for MIGUELITO CAMPUZANO POCT-GLUCOSE [id number] 23:49:08 Test Item Value Reference Range Interpretation Comments POC-GLUCOSE METER 70 mg/dL 70-110 : TESTED A T [facility] 6720 (BEAKER) (test code = [facility] [place], 153) 35435: Private Detective/Techni daniel ID = [id number] for MIGUELITO CAMPUZANO POCT-GLUCOSE [id number] 18:55:34 Test Item Value Reference Range Interpretation Comments POC-GLUCOSE METER 72 mg/dL 70-110 : TESTED A T [facility] 6720 (BEAKER) (test code = [facility] [place], 153) 32005: Private Detective/Techni daniel ID = [id number] for ROSSANA SALINAS HEPATITIS B SURFACE [id number] 15:59:47 Test Item Value Reference Range Interpretation Comments HEPATITIS B SURFACE ANTIGEN (2) Nonreactive Nonreactive (BEAKER) (test code = 2585) Specimen is considered negative for HBsAg.POCT-GLUCOSE [id number] 13:47:27 Test Item Value Reference Range Interpretation Comments POC-GLUCOSE METER 127 mg/dL 70-110 H : TESTED A T [facility] 6720 (BEAKER) (test code = [facility] [place], [facility]) 81565: Private Detective/Techni daniel ID = [id number] for FELICIANO LEONARD POCT-GLUCOSE [id number] 13:11:52 Test Item Value Reference Range Interpretation Comments POC-GLUCOSE METER 66 mg/dL 70-110 L : TESTED A T [facility] 6720 (BEAKER) (test code = [facility] [place], [facility]) 06136: Private Detective/Techni daniel ID = [id number] for Alden ozuna, Janes POCT-GLUCOSE [id number] 06:41:15 Test Item Value Reference Range Interpretation Comments POC-GLUCOSE METER 78 mg/dL 70-110 : TESTED A T [facility] 6720 (BEAKER) (test code = [facility] [place], [facility]) 75018: Private Detective/Techni daniel ID = [id number] for Chioma sterling Leidy BASIC METABOLIC [id number] 06:03:05 Test Item Value Reference Range Interpretation [...] S NOT APPLICABLE FOR DIALYSIS PATIEN TS. Private Detective ID - DBCBC W/PLT COUNT & AUTO [id number] 05:27:35 Test Item Value Reference Range Interpretation [...] H PERCENT (BEAKER) (test code = 2801) [id number] 05:03:14 Test Item Value Reference Range Interpretation Comments PARTIAL THROMBOPLASTIN TIME 70.9 seconds 22.5-36.0 H (BEAKER) (test code = 760) POCT-GLUCOSE [id number] 23:57:21 Test Item Value Reference Range Interpretation Comments POC-GLUCOSE METER 77 mg/dL 70-110 : TESTED A T [facility] 6720 (BEAKER) (test code = ANIL Brown [facility], 1538) 22854: Private Detective/Techni daniel ID = [id number] for Leidy Wolf [id number] 18:38:34 Test Item Value Reference Range Interpretation [...] 0-0 (BEAKER) (test code = 413) POCT-GLUCOSE [id number] 18:08:00 Test Item Value Reference Range Interpretation Comments POC-GLUCOSE METER 74 mg/dL 70-110 : TESTED A T [facility] 6720 ([facility]) (test code = [facility] [place], 153) 87266: Private Detective/Techni daniel ID = [id number] for [place], [employer] POCT-GLUCOSE [id number] 13:12:29 Test Item Value Reference Range Interpretation Comments POC-GLUCOSE METER 69 mg/dL 70-110 L : TESTED A T [facility] 6720 ([facility]) (test code = [facility] [place], 1538) 84955: Private Detective/Techni daniel ID = [id number] for [place], [employer] [id number] 12:30:50 Test Item Value Reference Range Interpretation Comments PARTIAL THROMBOPLASTIN TIME 77.2 seconds 22.5-36.0 H (AKER) (test code = 760) POCT-GLUCOSE [id number] 10:56:50 Test Item Value Reference Range Interpretation Comments POC-GLUCOSE METER 86 mg/dL 70-110 : TESTED A T [facility] 6720 ([facility]) (test code = [facility] [place], 1538) 93209: Private Detective/Techni daniel ID = [id number] for Bernardo Anderson POCT-GLUCOSE [id number] 06:43:38 Test Item Value Reference Range Interpretation Comments POC-GLUCOSE METER 74 mg/dL 70-110 : TESTED A T [facility] 6720 (BEAKER) (test code = [facility] [place], 1538) 74409: Private Detective/Techni daniel ID = [id number] for Leidy Wolf [id number] 05:37:41 Test Item Value Reference Range Interpretation Comments PARTIAL THROMBOPLASTIN TIME 55.9 seconds 22.5-36.0 H (BEAKER) (test code = 760) [id number] 03:37:37 Test Item Value Reference Range Interpretation Comments PARTIAL THROMBOPLASTIN TIME 137.2 seconds 22.5-36.0 H (BEAKER) (test code = 760) POCT-GLUCOSE [id number] 01:19:33 Test Item Value Reference Range Interpretation Comments POC-GLUCOSE METER 78 mg/dL 70-110 : TESTED A T [facility] 6720 (BEAKER) (test code = [facility] [place], 1538) 69503: Private Detective/Techni daniel ID = [id number] for Leidy Wolf [id number] 18:12:08 Test Item Value Reference Range Interpretation Comments PARTIAL THROMBOPLASTIN TIME 108.3 seconds 22.5-36.0 H (BEAKER) (test code = 760) POCT-GLUCOSE [id number] 17:37:49 Test Item Value Reference Range Interpretation Comments POC-GLUCOSE METER 71 mg/dL 70-110 : TESTED A T [facility] 6720 (BEAKER) (test code = [facility] [place], 1538) 45430: Private Detective/Techni daniel ID = [id number] for BRENDON NEERAJ, CATHY POCT-GLUCOSE [id number] 11:56:09 Test Item Value Reference Range Interpretation Comments POC-GLUCOSE METER 91 mg/dL 70-110 : TESTED A T [facility] 6720 (BEAKER) (test code = [facility] [place], 1538) 05325: Private Detective/Techni daniel ID = [id number] for BRENDON NEERAJ, CATHY [id number] 10:59:29 Test Item Value Reference Range Interpretation Comments PARTIAL THROMBOPLASTIN TIME 49.1 seconds 22.5-36.0 H (BEAKER) (test code = 760) [id number] 09:34:25 Test Item Value Reference Range Interpretation Comments PARTIAL THROMBOPLASTIN TIME 119.2 seconds 22.5-36.0 H (BEAKER) (test code = 760) POCT-GLUCOSE [id number] 08:13:50 Test Item Value Reference Range Interpretation Comments POC-GLUCOSE METER 72 mg/dL 70-110 : TESTED A T [facility] 6720 (BEAKER) (test code = [facility] [place], 1538) 98455: Private Detective/Techni daniel ID = [id number] for CATHY HONEYCUTT POCT-GLUCOSE [id number] 07:13:36 Test Item Value Reference Range Interpretation Comments POC-GLUCOSE METER 66 mg/dL 70-110 L : TESTED A T [facility] 6720 (BEAKER) (test code = [facility] [place], 1538) 20444: Private Detective/Techni daniel ID = [id number] for Leidy Wolf [id number] 03:21:24 Test Item Value Reference Range Interpretation Comments PARTIAL THROMBOPLASTIN TIME 70.8 seconds 22.5-36.0 H (BEAKER) (test code = 760) POCT-GLUCOSE [id number] 00:46:57 Test Item Value Reference Range Interpretation Comments POC-GLUCOSE METER 79 mg/dL 70-110 : TESTED A T [facility] 6720 (BEAKER) (test code = [facility] [place], 1538) 71842: Private Detective/Techni daniel ID = [id number] for Leidy Wolf [id number] 17:47:53 Test Item Value Reference Range Interpretation Comments PARTIAL THROMBOPLASTIN TIME 26.9 seconds 22.5-36.0 (BEAKER) (test code = 760) POCT-GLUCOSE [id number] 17:29:51 Test Item Value Reference Range Interpretation Comments POC-GLUCOSE METER 86 mg/dL 70-110 : TESTED A T [facility] 6720 (BEAKER) (test code = [facility] [place], 1538) 96283: Private Detective/Techni daniel ID = [id number] for CATHY HONEYCUTT SARS-COV2/RT-PCR ([facility])2021-09-09 16:21:38 Test Item Value Reference Range Interpretation Comments SARS-COV2/RT-PCR Negative Negative The SARS-Co V-2 target (test code = nucleic acids a re not [id number]) detected in thi s specimen. Negative result s do not preclude SARS-C oV-2 infection and s hould not be used as the nataly e basis for patient managem ent decisions. Nega tive results must be combine d with clinical observ ations, patient history , and epidemiological information. A false negativ e result may occur if a spec imen is improperly perez ected, transported or handled. This SARS CoV-2 [...] revoked sooner. Fact Sheet for Healthcare Providers: https://www.[employer] m/Documents/Xpert%20Xpress%20SARS%20CoV-2/Fact%20Sheets/3023802%44IMMH-WJG-5%20 HEALTHCARE%20PROVIDERS%20FACT%20SHEET.pdf Fact Sheet for Healthcare Patients: https://www.[employer]/Documents/Xpert%20Xp ress%20SARS%20CoV-2/Fact%20Sheets/3023801%15SKJN-IZI-3%20PATIENT%20FACT%20SHEET .pdfPOCT-GLUCOSE [id number] 12:24:09 Test Item Value Reference Range Interpretation Comments POC-GLUCOSE METER 76 mg/dL 70-110 : TESTED A T [facility] 6720 (CARLY) (test code = [place], 1538) 6[address]: Private Detective/Techni daniel ID = [id number] for CATHY HONEYCUTT POCT-GLUCOSE [id number] 10:14:48 Test Item Value Reference Range Interpretation Comments POC-GLUCOSE METER 71 mg/dL 70-110 : TESTED A T [facility] 6720 (BEAKER) (test code = [place], 1538) 53617: Private Detective/Techni daniel ID = [id number] for Scooby Bradley MISCELLANEOUS LAB [id number] 09:27:23 Test Item Value Reference Range Interpretation Comments SCAN RESULT (test code = See scanned report [id number]) See scanned [id number] 08:22:05 Test Item Value Reference Range Interpretation Comments PARTIAL THROMBOPLASTIN TIME 92.7 seconds 22.5-36.0 H (BEAKER) (test code = 760) BASIC METABOLIC [id number] 07:14:28 Test Item Value Reference Range Interpretation [...] S NOT APPLICABLE FOR DIALYSIS PATIEN TS. Private Detective ID - THEE [id number] 07:07:43 Test Item Value Reference Range Interpretation Comments PHOSPHORUS (BEAKER) (test code = 4.0 mg/dL 2.3-4.7 604) Private Detective ID - THEE [id number] 07:07:42 Test Item Value Reference Range Interpretation Comments MAGNESIUM (BEAKER) (test code = 1.9 mg/dL 1.6-2.6 627) Private Detective ID - THEE GPOCT-GLUCOSE [id number] 06:22:47 Test Item Value Reference Range Interpretation Comments POC-GLUCOSE METER 83 mg/dL 70-110 : TESTED A T [facility] 6720 (BEAKER) (test code = [place], 1538) 56287: Private Detective/Techni daniel ID = [id number] for MIGUELITO CAMPUZANO PROTHROMBIN TIME/[id number] 06:05:39 Test Item Value Reference Range Interpretation Comments PROTIME (BEAKER) 15.4 seconds 11.9-14.2 H (test code = 759) INR (BEAKER) (test 1.24 See_Comment [Automat ed message] code = 370) The system [employer] generated this result transmitted ref erence range: <=5.90. The reference range was not used to int erpret this result as normal/abnormal . RECOMMENDED COUMADIN/WARFARIN INR THERAPY RANGESSTANDARD DOSE: 2.0 - 3.0 Includes: PROPHYLAXIS for venous thrombosis, systemic embolization; TREATMENT for venous thrombosis and/or pulmonary embolus.HIGH RISK: Target INR is 2.5-3.5 for patients with mechanical heart valves.CBC W/PLT COUNT & AUTO [id number] 05:55:10 Test Item Value Reference Range Interpretation [...] 0-1 PERCENT (BEAKER) (test code = 2801) [id number] 01:10:08 Test Item Value Reference Range Interpretation Comments PARTIAL THROMBOPLASTIN TIME 51.7 seconds 22.5-36.0 H (BEAKER) (test code = 760) POCT-GLUCOSE [id number] 23:49:41 Test Item Value Reference Range Interpretation Comments POC-GLUCOSE METER 74 mg/dL 70-110 : [facility] (test code = [place], 1538) 07980: Private Detective/Techni daniel ID = [id number] for MIGUELITO CAMPUZANO CBC (HEMOGRAM ONLY)2021-09-08 18:13:52 [...] 0-0 (BEAKER) (test code = 413) POCT-GLUCOSE [id number] 17:34:42 Test Item Value Reference Range Interpretation Comments POC-GLUCOSE METER 78 mg/dL 70-110 : TESTED A T [facility] 6720 (BEAKER) (test code = [facility] [place], 1538) 87409: Private Detective/Techni daniel ID = [id number] for [place], [employer] [id number] 16:13:30 Test Item Value Reference Range Interpretation Comments PARTIAL THROMBOPLASTIN TIME 50.8 seconds 22.5-36.0 H (BEAKER) (test code = 760) [id number] 14:57:35 Test Item Value Reference Range Interpretation Comments PARTIAL THROMBOPLASTIN TIME > seconds 22.5-36.0 HH (BEAKER) (test code = 760) POCT-GLUCOSE [id number] 12:28:52 Test Item Value Reference Range Interpretation Comments POC-GLUCOSE METER 88 mg/dL 70-110 : TESTED A T [facility] 6720 (BEAKER) (test code = [facility] [place], 1538) 64031: Private Detective/Techni daniel ID = [id number] for [place], [employer] [id number] 07:11:35 Test Item Value Reference Range Interpretation Comments PARTIAL THROMBOPLASTIN TIME 55.9 seconds 22.5-36.0 H (BEAKER) (test code = 760) [id number] 22:36:09 Test Item Value Reference Range Interpretation Comments PARTIAL THROMBOPLASTIN TIME 106.1 seconds 22.5-36.0 H (BEAKER) (test code = 760) [id number] 20:46:48 Test Item Value Reference Range Interpretation Comments PARTIAL THROMBOPLASTIN TIME > seconds 22.5-36.0 HH (BEAKER) (test code = 760) [id number] 11:12:06 Test Item Value Reference Range Interpretation Comments PARTIAL THROMBOPLASTIN TIME 89.5 seconds 22.5-36.0 H (BEAKER) (test code = 760) [id number] 09:44:23 Test Item Value Reference Range Interpretation Comments PARTIAL THROMBOPLASTIN TIME 154.4 seconds 22.5-36.0 HH (BEAKER) (test code = 760) [id number] 00:28:57 Test Item Value Reference Range Interpretation Comments PARTIAL THROMBOPLASTIN TIME 63.4 seconds 22.5-36.0 H (BEAKER) (test code = 760) [id number] 17:46:24 Test Item Value Reference Range Interpretation Comments PARTIAL THROMBOPLASTIN TIME 46.8 seconds 22.5-36.0 H (BEAKER) (test code = 760) [id number] 09:28:45 Test Item Value Reference Range Interpretation Comments PARTIAL THROMBOPLASTIN TIME 31.6 seconds 22.5-36.0 (BEAKER) (test code = 760) [id number] 07:27:38 Test Item Value Reference Range Interpretation Comments PARTIAL THROMBOPLASTIN TIME 186.4 seconds 22.5-36.0 HH (BEAKER) (test code = 760) [id number] 04:56:25 Test Item Value Reference Range Interpretation Comments PARTIAL THROMBOPLASTIN TIME 138.6 seconds 22.5-36.0 H (BEAKER) (test code = 760) [id number] 21:52:53 Test Item Value Reference Range Interpretation [...] 0-0 (BEAKER) (test code = 413) POCT-GLUCOSE [id number] 11:22:59 Test Item Value Reference Range Interpretation Comments POC-GLUCOSE METER 60 mg/dL 70-110 L : TESTED A T [facility] 6720 (BEAKER) (test code = [place], 1538) [address]: Private Detective/Techni daniel ID = [id number] for ROSSANA SALINAS BASIC METABOLIC [id number] 06:09:12 Test Item Value Reference Range Interpretation [...] S NOT APPLICABLE FOR DIALYSIS PATIEN TS. Private Detective ID - BANDAR MCBC W/PLT COUNT & AUTO [id number] 05:37:39 Test Item Value Reference Range Interpretation [...] PERCENT (BEAKER) (test code = 2801) SARS-COV2/RT-PCR ([facility])2021-09-03 16:03:43 Test Item Value Reference Range Interpretation Comments SARS-COV2/RT-PCR (test Negative Not Detected, Negative, code = 1851801) See external report for linked test SARS-COV-2 PERFORMING LAB [facility] (test code = 5272238) Negative result for this test determines that [...] of the Act.Fact Sheet for Healthcare Prov iders:https://www.[employer]/sites/default/files/product/documents/Fact_Sheet_HC _Lvheqrznd_Kwrv_RMQC-UzK-7.pdfFact Sheet for Healthcare Patients:https://www.[employer]/sites/default/files/product/docume nts/Gayw_Kqbuq_Lwcerhlq_Aeut_KNXO-PoX-3.pdfPerforming Laboratory:[facility] [place] [address] 39254GWAKK METABOLIC PANEL 2021-09-02 04:27:05 Test Item Value [...] S NOT APPLICABLE FOR DIALYSIS PATIEN TS. Private Detective ID - BANDAR [id number] 04:23:13 Test Item Value Reference Range Interpretation Comments MAGNESIUM (BEAKER) (test code = 2.2 mg/dL 1.6-2.6 627) Private Detective ID - BANDAR [id number] 04:23:13 Test Item Value Reference Range Interpretation Comments PHOSPHORUS (BEAKER) (test code = 3.9 mg/dL 2.3-4.7 604) Private Detective ID - BANDAR MCBC W/PLT COUNT & AUTO [id number] 04:13:07 Test Item Value Reference Range Interpretation [...] (BEAKER) (test code = 2801) Paraneoplastic Panel, [id number] 09:50:29 Test Item Value Reference Range Interpretation Comments PARANEOPLASTIC ANTIBODY See scanned report (test code = 97857640) CECELIA (test code = CECELIA) See scanned report [facility], [id number] 09:50:29 Test Item Value Reference Range Interpretation Comments PARANEOPLASTIC ANTIBODY See scanned report (test code = 36181735) CECELIA (test code = CECELIA) See scanned report [facility] Panel, [id number] 09:50:29 Test Item Value Reference Range Interpretation Comments PARANEOPLASTIC ANTIBODY See scanned report (test code = 03288155) CECELIA (test code = CECELIA) See scanned report [facility] HospitalPARANEOPLASTIC AB EVAL W/ REFLEX TITER & LB, CSF 2021-09-01 09:50:29 Test Item Value Reference Range Interpretation Comments PARANEOPLASTIC ANTIBODY See scanned report (test code = 07311620) See scanned reportPOCT-GLUCOSE [id number] 16:50:16 Test Item Value Reference Range Interpretation Comments POC-GLUCOSE METER 84 mg/dL 70-110 : TESTED A T [facility] 6720 (BEAKER) (test code = ANIL Brown [facility], 1538) 82[address]: Private Detective/Techni daniel ID = [id number] for MCIHELLE N, THOMAS POCT-GLUCOSE [id number] 12:37:05 Test Item Value Reference Range Interpretation Comments POC-GLUCOSE METER 109 mg/dL 70-110 : TESTED A T [facility] 6720 (BEAKER) (test code = ANIL Brown [facility], 1538) 749[address]: Private Detective/Techni daniel ID = [id number] for MA PADMINI, THOMAS VALPROIC ACID LEVEL, [id number] 12:00:18 Test Item Value Reference Range Interpretation Comments VALPROIC ACID TOTAL (BEAKER) (test 53 ug/mL 50-100 code = 924) Therapeutic range for some clinical conditions may be >100 ug/mLOperator ID - BANDAR MPOCT-GLUCOSE [id number] 06:08:37 Test Item Value Reference Range Interpretation Comments POC-GLUCOSE METER 82 mg/dL 70-110 : TESTED A T [facility] 6720 (BEAKER) (test code = [place], 1538) 09[address]: Private Detective/Techni daniel ID = [id number] for MARGARITO CAMPUZANO BASIC METABOLIC [id number] 03:48:13 Test Item Value Reference Range Interpretation [...] S NOT APPLICABLE FOR DIALYSIS PATIEN TS. Private Detective ID - BANDAR [id number] 03:29:08 Test Item Value Reference Range Interpretation Comments MAGNESIUM (BEAKER) (test code = 2.2 mg/dL 1.6-2.6 627) Private Detective ID - BANDAR [id number] 03:29:08 Test Item Value Reference Range Interpretation Comments PHOSPHORUS (BEAKER) (test code = 2.9 mg/dL 2.3-4.7 604) Private Detective ID - BANDAR [id number] 03:18:24 Test Item Value Reference Range Interpretation Comments PARTIAL THROMBOPLASTIN TIME 63.2 seconds 22.5-36.0 H (BEAKER) (test code = 760) CBC W/PLT COUNT & AUTO [id number] 03:07:32 Test Item Value Reference Range Interpretation [...] PERCENT (BEAKER) (test code = 2801) POCT-GLUCOSE [id number] 23:42:07 Test Item Value Reference Range Interpretation Comments POC-GLUCOSE METER 81 mg/dL 70-110 : TESTED A T [facility] 6720 (BEAKER) (test code = [facility] Kevin [facility], 1538) 27[address]: Private Detective/Techni daniel ID = [id number] for MARGARITO CAMPUZANO POCT-GLUCOSE [id number] 18:26:13 Test Item Value Reference Range Interpretation Comments POC-GLUCOSE METER 87 mg/dL 70-110 : TESTED A T [facility] 6720 (BEAKER) (test code = [facility] [place], 1538) 80676: Private Detective/Techni daniel ID = [id number] for KWABENA MENDOZA RAD, CHEST, 1 VIEW, NON [id number] 12:12:00Reason for exam:->Mechanical VentilationShould this be performed at the bedside?->Yes [facility] : 1965 Sex: [...] MDReport Verified Date/Time: 08/30/2021 12:12:03 Reading Location: [facility] Radiology Reading Room POCT-GLUCOSE [id number] 11:48:25 Test Item Value Reference Range Interpretation Comments POC-GLUCOSE METER 83 mg/dL 70-110 : Notified RN/MD: TESTED (BEAKER) (test code = AT [facility] 6720 [facility] [place] 1538) [facility], 770 30: Private Detective/Techni daniel ID = [id number] for KWABENA MENDOZA POCT-GLUCOSE [id number] 06:02:06 Test Item Value Reference Range Interpretation Comments POC-GLUCOSE METER 83 mg/dL 70-110 : TESTED A T [facility] 6720 ([facility]) (test code = ANIL Brown [facility], 1538) 248[address]: Private Detective/Techni daniel ID = [id number] for MARGARITO CAMPUZANO BASIC METABOLIC [id number] 05:17:36 Test Item Value Reference Range Interpretation [...] I S NOT APPLICABLE FOR DIALYSIS PATIEN NARDA. Private Detective ID - [id number] 05:16:29 Test Item Value Reference Range Interpretation Comments PHOSPHORUS (BEAKER) (test code = 2.2 mg/dL 2.3-4.7 L 604) Private Detective ID - [id number] 05:16:28 Test Item Value Reference Range Interpretation Comments MAGNESIUM (BEAKER) (test code = 2.0 mg/dL 1.6-2.6 627) Private Detective ID - DBPOCT-GLUCOSE [id number] 04:55:04 Test Item Value Reference Range Interpretation Comments POC-GLUCOSE METER 84 mg/dL 70-110 : TESTED A T [facility] 6720 (BEAKER) (test code = ANIL Brown [facility], 1538) 39[address]: Private Detective/Techni daniel ID = [id number] for MARGARITO CAMPUZANO [id number] 04:04:18 Test Item Value Reference Range Interpretation Comments PARTIAL THROMBOPLASTIN TIME 81.3 seconds 22.5-36.0 H (BEAKER) (test code = 760) CBC W/PLT COUNT & AUTO [id number] 03:53:12 Test Item Value Reference Range Interpretation [...] PERCENT (BEAKER) (test code = 2801) POCT-GLUCOSE [id number] 23:51:43 Test Item Value Reference Range Interpretation Comments POC-GLUCOSE METER 72 mg/dL 70-110 : [facility] (BEAKER) (test code = [place], 1538) [address]: Private Detective/Techni daniel ID = [id number] for MARGARITO CAMPUZANO [id number] 22:34:43 Test Item Value Reference Range Interpretation Comments PARTIAL THROMBOPLASTIN TIME 93.8 seconds 22.5-36.0 H (BEAKER) (test code = 760) POCT-GLUCOSE [id number] 18:22:56 Test Item Value Reference Range Interpretation Comments POC-GLUCOSE METER 90 mg/dL 70-110 : TESTED A T [facility] 6720 (BEAKER) (test code = ANIL Brown [facility], 1538) 929[address]: Private Detective/Techni daniel ID = [id number] for KWABENA MENDOZA [id number] 15:34:45 Test Item Value Reference Range Interpretation Comments PARTIAL THROMBOPLASTIN TIME 116.4 seconds 22.5-36.0 H (CARLY) (test code = 760) RAD, ABDOMEN/KUB, 1 VIEW [id number] 13:45:00Reason for exam:->NG placement [facility]KI STRATTON : 1965 Sex: FFINAL REPORT [...] MDReport Verified Date/Time: 08/29/2021 13:45:52 Reading Location: [facility] Radiology Reading Room , CHEST, 1 VIEW, NON [id number] 12:35:00Reason for exam:->Mechanical VentilationShould this be performed at the bedside?->Yes [facility] : 1965 Sex: [...] fracture. IMPRESSION: No focal consolidation. Signed: [facility] Verified Date/Time: 08/29/2021 12:35:35 Reading Location: [facility] Radiology Reading Room -GLUCOSE [id number] 12:00:31 Test Item Value Reference Range Interpretation Comments POC-GLUCOSE METER 99 mg/dL 70-110 : TESTED A T [facility] 6720 ([facility]) (test code = ANIL Brown [facility], 1538) 63665: Private Detective/Techni daniel ID = [id number] for KWABENA MENDOZA [id number] 07:13:11 Test Item Value Reference Range Interpretation Comments PARTIAL THROMBOPLASTIN TIME 60.8 seconds 22.5-36.0 H (CARLY) (test code = 760) COMPREHENSIVE METABOLIC [id number] 05:57:39 Test Item Value Reference Range Interpretation Comments TOTAL PROTEIN 4.9 gm/dL 6.0-8.3 L (CelluFuel) (test code = 770) ALBUMIN ([facility]) 2.2 g/dL 3.5-5.0 L (test code = [...] S NOT APPLICABLE FOR DIALYSIS PATIEN TS. Private Detective ID - [id number] 05:51:57 Test Item Value Reference Range Interpretation Comments MAGNESIUM (BEAKER) (test code = 2.3 mg/dL 1.6-2.6 627) Private Detective ID - [id number] 05:51:57 Test Item Value Reference Range Interpretation Comments PHOSPHORUS (BEAKER) (test code = 2.4 mg/dL 2.3-4.7 604) Private Detective ID - DBPOCT-GLUCOSE [id number] 05:44:30 Test Item Value Reference Range Interpretation Comments POC-GLUCOSE METER 87 mg/dL 70-110 : TESTED A T [facility] 6720 (BEAKER) (test code = [place], 1538) 0[address]: Private Detective/Techni daniel ID = [id number] for Gómez Choudhary CBC W/PLT COUNT & AUTO [id number] 04:08:39 Test Item Value Reference Range Interpretation [...] (BEAKER) (test code = 2801) Blood gas, [id number] 04:05:56 Test Item Value Reference Range Interpretation [...] 21 Lab Interpretation Abnormal (test code = 25272-5) [facility], [id number] 04:05:56 Test Item Value Reference Range Interpretation [...] 21 Lab Interpretation Abnormal (test code = 75628-9) [facility], [id number] 04:05:56 Test Item Value Reference Range Interpretation Comments pH, Arterial (test code 7.40 7.35-7.45 = 2744-1) pCO2, Arterial (test 40 See_Comment [Autom ated code = 2019-) message] The system which generated this result [...] = 2708-6) HCO3, Arterial (test 24 mmol/L code = 1960-4) Base Excess, Arterial -0.8 mmol/L -2.0-3.0 (test code = 1925-7) Patient Temperature 36.6 (test code = 8310-5) FIO2 (test code = 1819) 21 Lab Interpretation Abnormal (test code = 82875-2) [facility]BL[facility] GAS, [id number] 04:05:56 Test Item Value Reference Range Interpretation [...] FIO2 (BEAKER) (test code = 1819) 21.0 [id number] 00:56:24 Test Item Value Reference Range Interpretation Comments PARTIAL THROMBOPLASTIN TIME 71.9 seconds 22.5-36.0 H (BEAKER) (test code = 760) POCT-GLUCOSE [id number] 00:41:07 Test Item Value Reference Range Interpretation Comments POC-GLUCOSE METER 91 mg/dL 70-110 : [facility] T [facility] 6720 [facility] (test code = [facility] [place], 153) 65[address]: Private Detective/Techni daniel ID = [id number] for Gómez Choudhary [id number] 22:35:43 Test Item Value Reference Range Interpretation Comments PARTIAL THROMBOPLASTIN TIME 126.1 seconds 22.5-36.0 H (BEAKER) (test code = 760) POCT-GLUCOSE [id number] 18:20:04 Test Item Value Reference Range Interpretation Comments POC-GLUCOSE METER 95 mg/dL 70-110 : [facility] T [facility] 6720 [facility] (test code = [facility] [place], 153) 66077: Private Detective/Techni daniel ID = [id number] for Estelle Riley [id number] 13:35:16 Test Item Value Reference Range Interpretation Comments PARTIAL THROMBOPLASTIN TIME 96.0 seconds 22.5-36.0 H (BEAKER) (test code = 760) POCT-GLUCOSE [id number] 12:13:53 Test Item Value Reference Range Interpretation Comments POC-GLUCOSE METER 107 mg/dL 70-110 : TESTED A T [facility] 6720 (BEAKER) (test code = [facility] [place], 153) 61870: Private Detective/Techni daniel ID = [id number] for Elissa Arangoa POCT-GLUCOSE [id number] 07:28:56 Test Item Value Reference Range Interpretation Comments POC-GLUCOSE METER 120 mg/dL 70-110 H : TESTED A T [facility] 6720 (BEAKER) (test code = [facility] [place], 153) 55634: Private Detective/Techni daniel ID = [id number] for MIGUEL VILLANUEVA BLOOD GAS, [id number] 05:13:53 Test Item Value Reference Range Interpretation [...] (test code = 1819) 21.0 BASIC METABOLIC [id number] 04:56:46 Test Item Value Reference Range Interpretation [...] S NOT APPLICABLE FOR DIALYSIS PATIEN TS. Private Detective ID - [id number] 04:55:26 Test Item Value Reference Range Interpretation Comments MAGNESIUM (BEAKER) (test code = 2.1 mg/dL 1.6-2.6 627) Private Detective ID - [id number] 04:55:26 Test Item Value Reference Range Interpretation Comments PHOSPHORUS (BEAKER) (test code = 1.7 mg/dL 2.3-4.7 L 604) Private Detective ID - DBPT/[id number] 04:45:02 Test Item Value Reference Range Interpretation Comments PROTIME (CARLY) (test 15.4 seconds 11.9-14.2 H code = [...] mechanical heart valves.RAD, CHEST, 1 VIEW, NON [id number] 04:45:00Reason for exam:->Mechanical VentilationShould this be performed at the bedside?->Yes [facility] MAKIMIKA CORONADO : 1965 Sex: FFINAL REPORT RAD, CHEST, 1 VIEW, NON DEPT INDICATION: Mechanical VentilationCOMPARISON: Prior day's exam FINDINGS: Portable frontal view of the chest. IMPRESSION: Support Lines: Stable. Lungs and pleura: No airspace consolidation or effusion. No pneumothorax. Heart and mediastinum: Stable contours. Additional findings: None. Signed: Tobin, Daiana MDReport Verified Date/Time: 08/28/2021 04:45:57 CBC W/PLT COUNT & AUTO [id number] 04:33:07 Test Item Value Reference Range Interpretation [...] PERCENT (BEAKER) (test code = 2801) POCT-GLUCOSE [id number] 23:58:48 Test Item Value Reference Range Interpretation Comments POC-GLUCOSE METER 112 mg/dL 70-110 H : TESTED A T [facility] 6720 (BEAKER) (test code = [facility] [place], 1538) 08958: Private Detective/Techni daniel ID = [id number] for Jamel Wallis PT/[id number] 21:44:25 Test Item Value Reference Range Interpretation Comments PROTIME (BEAKER) (test 14.0 seconds 11.9-14.2 code = 759) INR (BEAKER) (test 1.10 See_Comment [Automat ed code = 370) message] The [employer] stem which generated this result transmitted reference [...] patients with mechanical heart valves.VALPROIC ACID LEVEL, [id number] 20:58:58 Test Item Value Reference Range Interpretation Comments VALPROIC ACID TOTAL (BEAKER) (test 61 ug/mL 50-100 code = 924) Therapeutic range for some clinical conditions may be >100 ug/mLOperator ID - DBPOCT-GLUCOSE [id number] 17:42:41 Test Item Value Reference Range Interpretation Comments POC-GLUCOSE METER 94 mg/dL 70-110 : TESTED A T [facility] 6720 (BEAKER) (test code = [facility] [place], 1538) 97866: Private Detective/Techni daniel ID = [id number] for Thi Julian [id number] 15:29:15 Test Item Value Reference Range Interpretation Comments PARTIAL THROMBOPLASTIN TIME 74.7 seconds 22.5-36.0 H (BEAKER) (test code = 760) POCT-GLUCOSE [id number] 12:32:00 Test Item Value Reference Range Interpretation Comments POC-GLUCOSE METER 95 mg/dL 70-110 : TESTED A T [facility] 6720 ([facility]) (test code = ANIL [place], 1538) [address]: Private Detective/Techni daniel ID = [id number] for Simmaxim morrison Nguyen POCT-GLUCOSE [id number] 10:00:37 Test Item Value Reference Range Interpretation Comments POC-GLUCOSE METER 124 mg/dL 70-110 H : TESTED A T [facility] 6720 ([email or web address]) (test code = [employer] [facility], 1538) 59462: Private Detective/Techni daniel ID = [id number] for Estelle Knowles RAD, CHEST, 1 VIEW, NON [id number] 08:06:00Reason for exam:->Mechanical VentilationShould this be performed at the bedside?->Yes [facility] : 1965 Sex: [...] None. Signed: Ruth Benítez MDReport Verified Date/Time: 08/27/2021 08:06:25 BASIC METABOLIC [id number] 07:55:43 Test Item Value Reference Range Interpretation [...] S NOT APPLICABLE FOR DIALYSIS PATIEN TS. Private Detective ID - BANDAR [id number] 07:50:28 Test Item Value Reference Range Interpretation Comments PHOSPHORUS (BEAKER) 1.7 mg/dL 2.3-4.7 L Specimen slightly (test code = 604) hemolyzed Private Detective ID - BANDAR [id number] 07:50:27 Test Item Value Reference Range Interpretation Comments MAGNESIUM (BEAKER) 2.0 mg/dL 1.6-2.6 Specimen slightly (test code = 627) hemolyzed Private Detective ID - BANDAR MPT/[id number] 07:27:38 Test Item Value Reference Range Interpretation [...] for patients with mechanical heart valves.BLOOD GAS, [id number] 07:25:05 Test Item Value Reference Range Interpretation [...] 1819) 21.0 CBC W/PLT COUNT & AUTO [id number] 07:17:29 Test Item Value Reference Range Interpretation [...] PERCENT (BEAKER) (test code = 2801) POCT-GLUCOSE [id number] 07:13:25 Test Item Value Reference Range Interpretation Comments POC-GLUCOSE METER 63 mg/dL 70-110 L : TESTED A T [facility] 6720 (BEAKER) (test code = [facility] [place], 1538) 89837: Private Detective/Techni daniel ID = [id number] for MIGUEL VALENCIA POCT-GLUCOSE [id number] 03:43:12 Test Item Value Reference Range Interpretation Comments POC-GLUCOSE METER 117 mg/dL 70-110 H : TESTED A T [facility] 6720 (BEAKER) (test code = [facility] [place], 1538) 36789: Private Detective/Techni daniel ID = [id number] for MIGUEL VILLANUEVA Prepare [id number] 23:55:00 Test Item Value Reference Range Interpretation Comments CROSSMATCH (test code = 2264) COMPATIBLE Unit ABO (test code = O Pos 4186728) UNIT NUMBER (test code = [id number] 934-0) Status (test code = 7456513) TX_TIMEINCHART Blood Bank Product (test code RED BLOOD CELLS = 2263) PRODUCT CODE (test code = W4421C15 933-2) [facility] Hospital[facility] [id number] 23:55:00 Test Item Value Reference Range Interpretation Comments CROSSMATCH (test code = 2264) COMPATIBLE Unit ABO (test code = O Pos 8329245) UNIT NUMBER (test code = [id number] 934-0) Status (test code = 3569989) TX_TIMEINCHOLY CROSS HOSPITALT Blood Bank Product (test code RED BLOOD CELLS = 2263) PRODUCT CODE (test code = E7702H80 933-2) [facility] HospitalPrep[facility] [id number] 23:55:00 Test Item Value Reference Range Interpretation Comments CROSSMATCH (test code = 2264) COMPATIBLE Unit ABO (test code = O Pos 2528985) UNIT NUMBER (test code = [id number] 934-0) Status (test code = 5063320) TX_TIMEINCHART Blood Bank Product (test code RED BLOOD CELLS = 2263) PRODUCT CODE (test code = Y4892V48 933-2) [facility] HospitalPOCT[facility]GLUCOSE [id number] 18:21:30 Test Item Value Reference Range Interpretation Comments POC-GLUCOSE METER 121 mg/dL 70-110 H : Notified RN/MD: (CARLY) (test code = TESTED AT [facility] 6658 5943) [place], [address]: Private Detective/Techni daniel ID = [id number] for KWABENA MOORE VALPROIC ACID LEVEL, [id number] 17:02:29 Test Item Value Reference Range Interpretation [...] Igg Index,Csf (test 0.58 <0.66 code = 0103424) Albumin, CSF (test 5.1 mg/dL 8.0-42.0 L code = 7749096) IgG, CSF (test code 1.2 mg/dL 0.8-7.7 = ) IMMUNOGLOBULIN G, 900 mg/dL 600-1640 SERUM (test code = 7857936) Albumin, Serum (test 2.2 g/dL 3.5-5.2 L The Ig G Synthesis code = 3870995) rate, CSF an d IgG index, CSF are two formulae forestimating t he amount of IgG produced in the central nervous system. Evidenc eof increased synthesis of Ig G provides suppor t for the diagnos is of multiplescleros is. CECELIA (test code = Performing Lab EZ CECELIA) [facility] [address] [place] [address] Shirlene Fernandes MD, PhD, GUNJAN Lab Interpretation Abnormal (test code = 84352-9) [facility] HospitalIg[facility] Index (CSF + Blood)2021-08-26 13:15:35 Test [...] Igg Index,Csf (test 0.58 <0.66 code = 2860242) Albumin, CSF (test 5.1 mg/dL 8.0-42.0 L code = 1323506) IgG, CSF (test code 1.2 mg/dL 0.8-7.7 = ) IMMUNOGLOBULIN G, 900 mg/dL 600-1640 SERUM (test code = 7403896) Albumin, Serum (test 2.2 g/dL 3.5-5.2 L The Ig G Synthesis code = 2449853) rate, CSF an d IgG index, CSF are two formulae forestimating t he amount of IgG produced in the central nervous system. Evidenc eof increased synthesis of Ig G provides suppor t for the diagnos is of multiplescleros is. CECELIA (test code = Performing Lab EZ CECELIA) [facility] [address] [place] [address] Shirlene Fernandes MD, PhD, GUNJAN Lab Interpretation Abnormal (test code = 58739-4) [facility] Hospital[facility] (CSF + Blood)2021-08-26 13:15:35 Test [...] Igg Index,Csf (test 0.58 <0.66 code = 4152116) Albumin, CSF (test 5.1 mg/dL 8.0-42.0 L code = 3248208) IgG, CSF (test code 1.2 mg/dL 0.8-7.7 = 8208342) IMMUNOGLOBULIN G, 900 mg/dL 600-1640 SERUM (test code = 0315336) Albumin, Serum (test 2.2 g/dL 3.5-5.2 L The Ig G Synthesis code = 6172070) rate, CSF an d IgG index, CSF are two formulae forestimating t he amount of IgG produced in the central nervous system. Evidenc eof increased synthesis of Ig G provides suppor t for the diagnos is of multiplescleros is. CECELIA (test code = Performing Lab EZ CECELIA) [address] [employer] [place] [address] [place] [address] Shirlene Fernandes MD, PhD, GUNJAN Lab Interpretation Abnormal (test code = 99386-0) [facility] HospitalPOCT-GLUCOSE [id number] 13:11:52 Test Item Value Reference Range Interpretation Comments POC-GLUCOSE METER 131 mg/dL 70-110 H : TESTED A T [facility] 6720 (CARLY) (test code = [place], 1538) [address]: Private Detective/Techni daniel ID = [id number] for KWABENA MOORE [id number] 10:32:48 Test Item Value Reference Range Interpretation Comments PARTIAL THROMBOPLASTIN TIME 80.4 seconds 22.5-36.0 H (CARLY) (test code = 760) RAD, CHEST, 1 VIEW, NON [id number] 08:24:00Reason for exam:->Mechanical VentilationShould this be performed at the bedside?->Yes [facility] MAKI STRATTON : 1965 Sex: FFINAL REPORT [...] Benítez Verified Date/Time: 08/26/2021 08:24:59 Reading Location: [facility] Radiology Reading Room POCT-GLUCOSE [id number] 05:37:42 Test Item Value Reference Range Interpretation Comments POC-GLUCOSE METER 109 mg/dL 70-110 : TESTED A T [facility] 6720 (BEAKER) ([facility] [place], = 1538) [address]: Private Detective/Techni daniel ID = [id number] for DEVIN OLVERA BASIC METABOLIC [id number] 05:34:54 Test Item Value Reference Range Interpretation [...] S NOT APPLICABLE FOR DIALYSIS PATIEN TS. Private Detective ID - DANA [id number] 05:33:11 Test Item Value Reference Range Interpretation Comments PHOSPHORUS (BEAKER) (test code = 1.8 mg/dL 2.3-4.7 L 604) Private Detective ID - DANA [id number] 05:33:10 Test Item Value Reference Range Interpretation Comments MAGNESIUM (BEAKER) (test code = 2.1 mg/dL 1.6-2.6 627) Private Detective ID - DANA [id number] 05:07:34 Test Item Value Reference Range Interpretation Comments PARTIAL THROMBOPLASTIN TIME 88.6 seconds 22.5-36.0 H (BEAKER) (test code = 760) BLOOD GAS, [id number] 05:04:51 Test Item Value Reference Range Interpretation [...] 1819) 21.0 CBC W/PLT COUNT & AUTO [id number] 01:02:26 Test Item Value Reference Range Interpretation [...] PERCENT (BEAKER) (test code = 2801) POCT-GLUCOSE [id number] 23:37:00 Test Item Value Reference Range Interpretation Comments POC-GLUCOSE METER 195 mg/dL 70-110 H : TESTED A T [facility] 6720 (BEAKER) (test code = [place], 1538) [address]: Private Detective/Techni daniel ID = [id number] for TOM ALEGRIA [id number] 21:52:26 Test Item Value Reference Range Interpretation Comments PARTIAL THROMBOPLASTIN TIME 102.9 seconds 22.5-36.0 H (BEAKER) (test code = 760) SARS-COV2/RT-PCR ([facility])2021-08-25 21:18:24 Test Item Value Reference Range Interpretation Comments SARS-COV2/RT-PCR (test code = Negative Negative 3467408) Negative result for this test determines that [...] 564(g) of the Act.Testing was performed using [facility] Lao SARS-CoV-2 assay.Fact Sheet for Healthcare Providers:https://www.molecular.lao/marianela/RT SARS-CoV-2 HCP Fact Sheet 51- 772420.pdfFact Sheet for Healthcare Patients:https://www.molecular.lao/marianela/RT SARS-CoV-2 Patient Fact Sheet EN 51-027328W6.pdfPOCT-GLUCOSE [id number] 18:25:16 Test Item Value Reference Range Interpretation Comments POC-GLUCOSE METER 247 mg/dL 70-110 H : TESTED A T [facility] 6720 ([facility]) (test code = ANIL Brown [facility], 1538) [address]: Private Detective/Techni daniel ID = [id number] for LEIGHTON TOWNSEND West Nile Virus, CSF, IgG and [id number] 15:54:50 Test Item Value Reference Range Interpretation Comments West Nile <0.90 REFERENCE RANGE : <0.90 Ab,Igm (test INTERPRETIVE CR ITERIA code = <0.90 Antibody not 0839405) detected 0.90 - 1.10 Equivocal >1.10 Antibody [...] (test Performing Lab code = CECELIA) *QDID [employer] [address] [place] [address] Shirlene Fernandes MD, PhD [facility], CSF, IgG and [id number] 15:54:50 Test Item Value Reference Range Interpretation Comments West Nile <0.90 REFERENCE RANGE : <0.90 Ab,Igm (test INTERPRETIVE CR ITERIA code = <0.90 Antibody not 7088498) detected 0.90 - 1.10 Equivocal >1.10 Antibody [...] (test Performing Lab code = CECELIA) *[employer] [address] [place] [address] Shirlene Fernandes MD, PhD [facility], CSF, IgG and [id number] 15:54:50 Test Item Value Reference Range Interpretation Comments West Nile <0.90 REFERENCE RANGE : <0.90 Ab,Igm (test INTERPRETIVE CR ITERIA code = <0.90 Antibody not 9672230) detected 0.90 - 1.10 Equivocal >1.10 Antibody [...] (test Performing Lab code = CECELIA) *QDID [facility] [address] [address] Shirlene Fernandes MD, PhD [facility]APTT2022-06-[facility] 14:48:58 Test Item Value Reference Range Interpretation Comments PARTIAL THROMBOPLASTIN TIME 41.5 seconds 22.5-36.0 H (BEAKER) (test code = 760) POC-Glucose [id number] 12:57:53 Test Item Value Reference Range Interpretation Comments POC-Glucose Meter (test 106 mg/dL 70-110 : TE STED AT [facility] code = 1538) 6720 [facility], 770 30: Private Detective/Techni daniel ID = [id number] for Johns, [place] a Lab Interpretation (test Normal code = 40075-3) [facility] HospitalPOCT[facility]UCOSE [id number] 12:57:53 Test Item Value Reference Range Interpretation Comments POC-GLUCOSE METER 106 mg/dL 70-110 : TESTED A T [facility] 6720 ([facility]) (test code = ANIL R [facility], 1538) [address]: Private Detective/Techni daniel ID = [id number] for Si Nguyen tarango [employer] Leuko-Red [id number] 12:14:00 Test Item Value Reference Range Interpretation Comments CROSSMATCH (test code = 2264) COMPATIBLE Unit ABO (test code = O Pos 2005628) UNIT NUMBER (test code = [id number] 934-0) Status (test code = 4925755) READY Blood Bank Product (test code RED BLOOD CELLS = 2263) PRODUCT CODE (test code = [id number] 933-2) [facility]Red [id number] 12:14:00 Test Item Value Reference Range Interpretation Comments CROSSMATCH (test code = 2264) COMPATIBLE Unit ABO (test code = O Pos 2760799) UNIT NUMBER (test code = [id number] 934-0) Status (test code = 1136267) READY Blood Bank Product (test code RED BLOOD CELLS = 2263) PRODUCT CODE (test code = D5637Q26 933-2) [facility]uko-Red [id number] 12:14:00 Test Item Value Reference Range Interpretation Comments CROSSMATCH (test code = 2264) COMPATIBLE Unit ABO (test code = O Pos 9597727) UNIT NUMBER (test code = [id number] 934-0) Status (test code = 0407569) READY Blood Bank Product (test code RED BLOOD CELLS = 2263) PRODUCT CODE (test code = [id number] 933-2) [facility] Hospital[facility] Leuko-Red [id number] 12:14:00 Test Item Value Reference Range Interpretation Comments CROSSMATCH (test code = 2264) COMPATIBLE Unit ABO (test code = O Pos 0565260) UNIT NUMBER (test code = [id number] 934-0) Status (test code = 6053340) READY Blood Bank Product (test code RED BLOOD CELLS = 2263) PRODUCT CODE (test code = [id number] 933-2) [facility] HospitalAPTT20[facility] 11:50:59 Test Item Value Reference Range Interpretation Comments PARTIAL THROMBOPLASTIN TIME 124.7 seconds 22.5-36.0 H (BEAKER) (test code = 760) LACTIC ACID, [id number] 11:30:11 Test Item Value Reference Range Interpretation Comments LACTATE BLOOD VENOUS 0.96 mmol/L 0.50-2.20 Specime n slightly (2) (BEAKER) (test hemolyzed code = 2872) Private Detective ID - BSRAD, CHEST, 1 VIEW, NON [id number] 11:18:00Reason for exam:- >Mechanical VentilationShould this be performed at the bedside?->Yes [facility] 1965 Sex: FFINAL REPORT RAD, CHEST, 1 VIEW, NON DEPT INDICATION: Mechanical Ventilation COMPARISON: Prior day's exam FINDINGS: Portable frontal view of the chest. IMPRESSION: Support Lines: ET tube tip is 2cm superior to jonny. Feeding tube descends below the diaphragm. Dialysis catheter tip overlies the right atrium. Lungs and pleura: Mild diffuse bilateral interstitial thickening. No significant pneumothorax. Heart and mediastinum: Stable contours. Stable surgical changes. Additional findings: None. Signed: Ruth Benítez Verified Date/Time: 08/25/2021 11:18:15 Reading Location: [facility] Radiology Reading Room Sputum Culture + Gram [id number] 10:08:37 Test Item Value Reference Range Interpretation Comments Result (test code = 1+ Normal respiratory 6463-4) johnny present Gram Stain Result No organisms seen (test code = 1123) [facility] [id number] 10:08:37 Test Item Value Reference Range Interpretation Comments Result (test code = 1+ Normal respiratory 6463-4) johnny present Gram Stain Result No organisms seen (test code = 1123) [facility] + Gram [id number] 10:08:37 Test Item Value Reference Range Interpretation Comments Result (test code = 1+ Normal respiratory 6463-4) johnny present Gram Stain Result No organisms seen (test code = 1123) [facility] + Gram [id number] 10:08:37 Test Item Value Reference Range Interpretation Comments Result (test code = 1+ Normal respiratory 6463-4) johnny present Gram Stain Result No organisms seen (test code = 1123) [facility] + GRAM [id number] 10:08:37 Test Item Value Reference Range Interpretation Comments CULTURE (BEAKER) 1+ Normal respiratory (test code = 1095) johnny present GRAM STAIN RESULT <1+ WBCs (BEAKER) (test code = 1123) GRAM STAIN RESULT No organisms seen (BEAKER) (test code = 06449) HEPATIC FUNCTION [id number] 09:14:03 Test Item Value Reference Range Interpretation [...] code = < U/L 6-55 L 347) Private Detective ID - BSCREATINE KINASE (CK)2021-08-25 09:01:58 Test Item Value Reference Range Interpretation Comments CREATINE KINASE TOTAL (BEAKER) (test 46 U/L 29-200 code = 380) Private Detective ID - BSCBC (HEMOGRAM ONLY)2021-08-25 06:27:41 Test [...] H (BEAKER) (test code = 413) POC-Glucose [id number] 06:02:24 Test Item Value Reference Range Interpretation Comments POC-Glucose Meter (test 136 mg/dL 70-110 H : TE STED AT [facility] code = 1538) 67[address] [facility], 770 30: Private Detective/Techni daniel ID = [id number] for PRESTON HYATT Lab Interpretation (test Abnormal code = 70853-7) [facility] HospitalPOCT-GLUCOSE [id number] 06:02:24 Test Item Value Reference Range Interpretation Comments POC-GLUCOSE METER 136 mg/dL 70-110 H : TESTED A T [facility] 6720 (BEAKER) (test code = [facility] R [facility], 1538) [address]: Private Detective/Techni daniel ID = [id number] for PRESTON HYATT TH [id number] 04:23:40 Test Item Value Reference Range Interpretation Comments PARTIAL THROMBOPLASTIN TIME 102.9 seconds 22.5-36.0 H (BEAKER) (test code = 760) [id number] 03:36:27 Test Item Value Reference Range Interpretation Comments PHOSPHORUS (BEAKER) (test code = 0.8 mg/dL 2.3-4.7 LL 604) Private Detective ID - BSBASIC METABOLIC [id number] 03:35:15 Test Item Value Reference Range Interpretation [...] S NOT APPLICABLE FOR DIALYSIS PATIEN TS. Private Detective ID - [id number] 03:31:58 Test Item Value Reference Range Interpretation Comments MAGNESIUM (BEAKER) (test code = 2.0 mg/dL 1.6-2.6 627) Private Detective ID - BSLACTIC ACID, [id number] 03:23:15 Test Item Value Reference Range Interpretation Comments LACTATE BLOOD VENOUS 2.91 mmol/L 0.50-2.20 H Specime n slightly (2) (BEAKER) (test hemolyzed code = 2872) Private Detective ID - BSCBC W/PLT COUNT & AUTO [id number] 03:22:48 Test Item Value Reference Range Interpretation [...] (BEAKER) (test code = 2801) Blood gas, [id number] 03:16:19 Test Item Value Reference Range Interpretation Comments pH, Arterial (test code 7.48 7.35-7.45 H = 2744-1) pCO2, Arterial (test 39 See_Comment [Autom ated message] code = 2019) The system [facility] generated this result transmit sally reference range : 35 - 45 mm Hg. The reference range was not used to interpret this result as normal/abnormal . pO2, Arterial (test 169 See_Comment H [Automa sally message] code = 2703-7) The system [facility] generated this result transmit sally reference range [...] 30 Lab Interpretation Abnormal (test code = 52175-5) [facility] HospitalBlood gas, [id number] 03:16:19 Test Item Value Reference Range Interpretation Comments pH, Arterial (test code 7.48 7.35-7.45 H = 2744-1) pCO2, Arterial (test 39 See_Comment [Autom ated message] code = 2019-8) The system [facility] generated this result transmit sally reference range : 35 - 45 mm Hg. The reference range was not used to interpret this result as normal/abnormal . pO2, Arterial (test 169 See_Comment H [Automa sally message] code = 2703-7) The system [facility] generated this result transmit sally reference range [...] 30 Lab Interpretation Abnormal (test code = 18199-8) [facility] HospitalBLOOD GAS, [id number] 03:16:19 Test Item Value Reference Range Interpretation [...] (BEAKER) (test code = 1819) 30.0 POCT-GLUCOSE [id number] 23:21:14 Test Item Value Reference Range Interpretation Comments POC-GLUCOSE METER 219 mg/dL 70-110 H : TESTED A T [facility] 6720 (BEAKER) (test code = [place], 1538) [address]: Private Detective/Techni daniel ID = [id number] for Lily Khan PHENYTOIN LEVEL, [id number] 18:02:03 Test Item Value Reference Range Interpretation Comments PHENYTOIN (DILANTIN) (BEAKER) 10.8 ug/mL 10.0-20.0 (test code = 605) Private Detective ID - BSLactic Acid, Vtdjvjgd2549-05-93 17:18:10 Test Item Value Reference Range Interpretation Comments Lactate, Art (test code = 3.3 mmol/L 0.5-2.2 H 2874) CECELIA (test code = CECELIA) Private Detective ID - BS Lab Interpretation (test Abnormal code = 25522-0) [facility] HospitalLactic Acid, [id number] 17:18:10 Test Item Value Reference Range Interpretation Comments Lactate, Art (test code = 3.3 mmol/L 0.5-2.2 H 2874) CECELIA (test code = CECELIA) Private Detective ID - BS Lab Interpretation (test Abnormal code = 83002-1) [facility] HospitalLactic Acid, [id number] 17:18:10 Test Item Value Reference Range Interpretation Comments Lactate, Art (test code = 3.3 mmol/L 0.5-2.2 H 2874) CECELIA (test code = CECELIA) Private Detective ID - BS Lab Interpretation (test Abnormal code = 75301-8) [facility] HospitalLactic Acid, [id number] 17:18:10 Test Item Value Reference Range Interpretation Comments Lactate, Art (test code = 3.3 mmol/L 0.5-2.2 H 2874) CECELIA (test code = CECELIA) Private Detective ID - BS Lab Interpretation (test Abnormal code = 94339-4) [facility] HospitalLactic Acid, [id number] 17:18:10 Test Item Value Reference Range Interpretation Comments Lactate, Art (test code = 3.3 mmol/L 0.5-2.2 H 2874) CECELIA (test code = CECELIA) Private Detective ID - BS Lab Interpretation (test Abnormal code = 51934-6) [facility] HospitalLACTIC ACID, [id number] 17:18:10 Test Item Value Reference Range Interpretation Comments LACTATE BLOOD ARTERIAL (2) 3.3 mmol/L 0.5-2.2 H (BEAKER) (test code = 2874) Private Detective ID - BSPOCT-GLUCOSE [id number] 17:14:39 Test Item Value Reference Range Interpretation Comments POC-GLUCOSE METER 201 mg/dL 70-110 H : TESTED A T [facility] 6720 (BEAKER) (test code = ANIL Brown [facility], 1538) [address]: Private Detective/Techni daniel ID = [id number] for DANA LIVE [id number] 17:11:31 Test Item Value Reference Range Interpretation Comments PARTIAL THROMBOPLASTIN TIME 34.6 seconds 22.5-36.0 (BEAKER) (test code = 760) POCT-GLUCOSE [id number] 15:32:40 Test Item Value Reference Range Interpretation Comments POC-GLUCOSE METER 205 mg/dL 70-110 H : TESTED A T [facility] 6720 ([employer]) (test code [facility], = 1538) [address]: Private Detective/Techni daniel ID = [id number] for VIRAJ RYDER RAD, CHEST, 1 VIEW, NON [id number] 10:11:00Reason for exam:->post picc lineShould this be performed at the bedside?->Yes [facility] : 1965 Sex: [...] No acute bone abnormality. Signed: Sergio Ramirez [facility] Verified Date/Time: 08/24/2021 10:11:09 [facility] + gram [id number] 08:51:16 Test Item Value Reference Range Interpretation Comments Result (test code = 6463-4) No growth Gram Stain Result (test No organisms seen code = 1123) [facility] culture + gram [id number] 08:51:16 Test Item Value Reference Range Interpretation Comments Result (test code = 6463-4) No growth Gram Stain Result (test No organisms seen code = 1123) [facility] culture + gram [id number] 08:51:16 Test Item Value Reference Range Interpretation Comments Result (test code = 6463-4) No growth Gram Stain Result (test No organisms seen code = 1123) [facility] culture + gram [id number] 08:51:16 Test Item Value Reference Range Interpretation Comments Result (test code = 6463-4) No growth Gram Stain Result (test No organisms seen code = 1123) [facility] HospitalCSF [facility] + gram [id number] 08:51:16 Test Item Value Reference Range Interpretation Comments Result (test code = 6463-4) No growth Gram Stain Result (test No organisms seen code = 1123) [facility] [id number] 08:51:16 Test Item Value Reference Range Interpretation Comments CULTURE (BEAKER) (test No growth code = 1095) GRAM STAIN RESULT No White blood cells (BEAKER) (test code = seen 1123) GRAM STAIN RESULT No organisms seen (BEAKER) (test code = 50483) (CELLAVISION MANUAL DIFF)2021-08-24 07:11:26 Test Item Value [...] CONCENTRATION Adequate (CELLAVISION)(BEAKER) (test code = 3438) Private Detective ID - dian Ang comments: Slide comments:CBC W/PLT COUNT & AUTO [id number] 07:11:25 Test Item Value Reference Range Interpretation [...] CELLS (BEAKER) (test code = 413) POCT-GLUCOSE [id number] 06:02:48 Test Item Value Reference Range Interpretation Comments POC-GLUCOSE METER 158 mg/dL 70-110 H : TESTED A T [facility] 6720 (BEAKER) (test code = ANIL DYE [place], 1538) [address]: Private Detective/Techni daniel ID = [id number] for Lily Khan BASIC METABOLIC [id number] 06:02:11 Test Item Value Reference Range Interpretation [...] S NOT APPLICABLE FOR DIALYSIS PATIEN TS. Private Detective ID - DANA [id number] 05:50:44 Test Item Value Reference Range Interpretation Comments PHOSPHORUS (BEAKER) (test code = 1.6 mg/dL 2.3-4.7 L 604) Private Detective ID - DANA [id number] 05:50:43 Test Item Value Reference Range Interpretation Comments MAGNESIUM (BEAKER) (test code = 2.1 mg/dL 1.6-2.6 627) Private Detective ID - DANA LBLOOD GAS, [id number] 05:48:16 Test Item Value Reference Range Interpretation [...] (BEAKER) (test code = 1819) 30.0 CALCIUM, [id number] 05:48:16 Test Item Value Reference Range Interpretation Comments CALCIUM IONIZED (BEAKER) (test 1.09 mmol/L 1.12-1.27 L code = 698) PH, BLOOD (BEAKER) (test code = 7.43 1810) [id number] 05:40:48 Test Item Value Reference Range Interpretation Comments PARTIAL THROMBOPLASTIN TIME 143.9 seconds 22.5-36.0 H (BEAKER) (test code = 760) LACTIC ACID, [id number] 05:26:27 Test Item Value Reference Range Interpretation Comments LACTATE BLOOD VENOUS (2) (BEAKER) 2.61 mmol/L 0.50-2.20 H (test code = 2872) Private Detective ID - BSRAD, CHEST, 1 VIEW, NON [id number] 01:27:00Reason for exam:- >Mechanical VentilationShould this be performed at the bedside?->Yes [facility]AName: MAKI STRATTON : 1965 Sex: FFINAL REPORT [...] the distal stomach/proximal duodenum. Signed: Jerry Palencia MDRepbarnes-[facility] Verified Date/Time: 08/24/2021 01:27:04 RAD, ABDOMEN/KUB, 1 VIEW [id number] 01:27:00Reason for exam:->s/p corpak placementShould this be performed at the bedside?->Yes [facility] : 1965 Sex: [...] Jerry Palencia MDReport Verified Date/Time: 08/24/2021 01:27:04 POCT-GLUCOSE [id number] 23:59:45 Test Item Value Reference Range Interpretation Comments POC-GLUCOSE METER 205 mg/dL 70-110 H : TESTED A T [facility] 6720 (FlapshareAKER) (test code = [employer] [facility], 1538) [address]: Private Detective/Techni daniel ID = [id number] for MARGARITO DINH [id number] 21:22:54 Test Item Value Reference Range Interpretation Comments PARTIAL THROMBOPLASTIN TIME 119.0 seconds 22.5-36.0 H (BEAKER) (test code = 760) [id number] 19:09:03 Test Item Value Reference Range Interpretation Comments PARTIAL THROMBOPLASTIN TIME 198.9 seconds 22.5-36.0 HH (BEAKER) (test code = 760) POCT-GLUCOSE [id number] 16:52:22 Test Item Value Reference Range Interpretation Comments POC-GLUCOSE METER 225 mg/dL 70-110 H : TESTED A T [facility] 6720 (BEAKER) (test code = [facility] Unified Color [facility], 1538) [address]: Private Detective/Techni daniel ID = [id number] for BERNADINE RESTREPO [id number] 14:50:11 Test Item Value Reference Range Interpretation Comments PROCALCITONIN (BEAKER) (test code 5.78 ng/mL <0.05 H = 3036) SEPSIS RISK (ng/mL)Low: 0.05-0.50Intermediate: 0.51-2.00High: >=2.01Venous doppler arms [id number] 12:23:42Ejection FractionSLEH ECHO HEARTLAB MKCKESSON [facility] HospitalVenous doppler arms bilateral 2021-08-23 12:23:42Ejection FractionSLEH ECHO HEARTLAB MKCKESSON [facility] HospitalVenous doppler arms [id number] 12:23:42Ejection FractionSLEH ECHO HEARTLAB MKCKESSON [facility] HospitalVenous doppler arms [id number] 12:23:42Ejection FractionSLEH ECHO HEARTLAB MKCKESSON [facility] HospitalVenous doppler arms bilateral 2021-08-23 12:23:42Ejection FractionSLEH ECHO HEARTLAB MKCKMARY IMO[facility]ITALON [facility] HospitalAPTT2022-05-31 12:08:56 Test Item Value Reference Range Interpretation Comments PARTIAL THROMBOPLASTIN TIME 29.7 seconds 22.5-36.0 ([facility]) (test code = 760) POCT-GLUCOSE [id number] 12:03:43 Test Item Value Reference Range Interpretation Comments POC-GLUCOSE METER 184 mg/dL 70-110 H : TESTED A T [facility] 6720 ([facility]) (test code = ANIL D[place], 1538) [address]: Private Detective/Techni daniel ID = [id number] for AG BERNADINE PAK RAD, CHEST, 1 VIEW, NON [id number] 11:17:00Reason for exam:- >repositioning ettShould this be performed at the bedside?->Yes [facility] : 1965 Sex: [...] surgical changes. Additional findings: None. Signed: Ruth Beníetz MDReport Verified Date/Time: 08/23/2021 11:17:41 Reading Location: [facility] Radiology Reading Room , CHEST, 1 VIEW, NON [id number] 09:20:00Reason for exam:->Mechanical VentilationShould this be performed at the bedside?->Yes [facility] : 1965 Sex: FFINAL REPORT Chest AP [...] lung clear. Normal vascularity. Signed: Junito Mayberry MDReport Verified Date/Time: 08/23/2021 09:20:01 Reading Location: [facility] Radiology Reading Room (CELLAVISION MANUAL DIFF)2021-08-23 [...] CONCENTRATION Adequate (CELLAVISION)(BEAKER) (test code = 3438) Private Detective ID - Marin comments: Slide comments:CBC W/PLT COUNT & AUTO [id number] 06:42:10 Test Item Value Reference Range Interpretation [...] 0-0 (BEAKER) (test code = 413) POCT-GLUCOSE [id number] 05:25:06 Test Item Value Reference Range Interpretation Comments POC-GLUCOSE METER 233 mg/dL 70-110 H : TESTED A T [facility] 6720 (BEAKER) (test code = [place], 1538) [address]: Private Detective/Techni daniel ID = [id number] for Raúl Jaquelin baldwin BASIC METABOLIC [id number] 04:30:11 Test Item Value Reference Range Interpretation [...] S NOT APPLICABLE FOR DIALYSIS PATIEN TS. Private Detective ID - [id number] 04:18:30 Test Item Value Reference Range Interpretation Comments MAGNESIUM (BEAKER) (test code = 1.8 mg/dL 1.6-2.6 627) Private Detective ID - [id number] 04:18:30 Test Item Value Reference Range Interpretation Comments PHOSPHORUS (BEAKER) (test code = 1.7 mg/dL 2.3-4.7 L 604) Private Detective ID - DBBLOOD GAS, [id number] 04:06:03 Test Item Value Reference Range Interpretation [...] (BEAKER) (test code = 1819) 30.0 POCT-GLUCOSE [id number] 00:35:37 Test Item Value Reference Range Interpretation Comments POC-GLUCOSE METER 247 mg/dL 70-110 H : TESTED A T [facility] 6720 (BEAKER) (test code = ANIL DYE [place], 1538) [address]: Private Detective/Techni daniel ID = [id number] for Jaquelin Burns [id number] 17:21:29 Test Item Value Reference Range Interpretation Comments ALBUMIN (CARLY) (test code = 1145) 2.2 g/dL 3.5-5.0 L Private Detective ID - CALVIN WPOCT-GLUCOSE [id number] 17:10:59 Test Item Value Reference Range Interpretation Comments POC-GLUCOSE METER 200 mg/dL 70-110 H : TESTED A T [facility] 6720 (BEAKER) (test code = MICHAELLEYASMINE [place], 1538) [address]: Private Detective/Techni daniel ID = [id number] for MICHAEL GARCIA RAD, CHEST, 1 VIEW, NON [id number] 07:38:00Reason for exam:->Mechanical VentilationShould this be performed at the bedside?->Yes [facility] [place] : 1965 Sex: FFINAL REPORT Chest, one [...] MDReport Verified Date/Time: 08/22/2021 07:38:56 Reading Location: [facility] C013Y HI Body Reading Room (CELLAVISION MANUAL DIFF)2021-08-22 07:17:24 [...] CONCENTRATION Adequate (CELLAVISION)(BEAKER) (test code = 3438) Private Detective ID - Katherine OverholtUser comments: Slide comments:CBC W/PLT COUNT & AUTO [id number] 07:17:14 Test Item Value Reference Range Interpretation [...] 0-0 (BEAKER) (test code = 413) POCT-GLUCOSE [id number] 05:49:24 Test Item Value Reference Range Interpretation Comments POC-GLUCOSE METER 171 mg/dL 70-110 H [facility] (test code = [place], 1538) [address]: Private Detective/Techni daniel ID = [id number] for Zoe Lofton BASIC METABOLIC [id number] 05:17:50 Test Item Value Reference Range Interpretation [...] S NOT APPLICABLE FOR DIALYSIS PATIEN TS. Private Detective ID - CYRURPZHBOR0725-28-82 05:00:51 Test Item Value Reference Range Interpretation Comments MAGNESIUM (BEAKER) 1.9 mg/dL 1.6-2.6 Specimen slightly (test code = 627) hemolyzed Private Detective ID - DBOperator ID - [id number] 05:00:51 Test Item Value Reference Range Interpretation Comments PHOSPHORUS (BEAKER) 3.3 mg/dL 2.3-4.7 Specimen slightly (test code = 604) hemolyzed Private Detective ID - DBBLOOD GAS, [id number] 04:29:31 Test Item Value Reference Range Interpretation [...] (BEAKER) (test code = 1819) 30.0 POCT-GLUCOSE [id number] 23:59:55 Test Item Value Reference Range Interpretation Comments POC-GLUCOSE METER 187 mg/dL 70-110 H : TESTED A T [facility] 6720 (BEAKER) (test code = AN[place], 1538) [address]: Private Detective/Techni daniel ID = [id number] for Zoe Lofton Protein, [id number] 17:36:26 Test Item Value Reference Range Interpretation Comments Protein, CSF (test code = 13 mg/dL 15-45 L 2880-3) CECELIA (test code = CECELIA) Private Detective ID - [id number] Lab Interpretation (test Abnormal code = 57754-2) [facility] [id number] 17:36:26 Test Item Value Reference Range Interpretation Comments Protein, CSF (test code = 13 mg/dL 15-45 L 2880-3) CECELIA (test code = CECELIA) Private Detective ID - [id number] Lab Interpretation (test Abnormal code = 22849-7) [facility] [id number] 17:36:26 Test Item Value Reference Range Interpretation Comments Protein, CSF (test code = 13 mg/dL 15-45 L 2880-3) CECELIA (test code = CECELIA) Private Detective ID - [id number] Lab Interpretation (test Abnormal code = 88413-6) [facility] [id number] 17:36:26 Test Item Value Reference Range Interpretation Comments Protein, CSF (test code = 13 mg/dL 15-45 L 2880-3) CECELIA (test code = CECELIA) Private Detective ID - [id number] Lab Interpretation (test Abnormal code = 15918-6) [facility] [id number] 17:36:26 Test Item Value Reference Range Interpretation Comments Protein, CSF (test code = 13 mg/dL 15-45 L 2880-3) CECELIA (test code = CECELIA) Private Detective ID - [id number] Lab Interpretation (test Abnormal code = 31951-0) [facility], [id number] 17:36:26 Test Item Value Reference Range Interpretation Comments PROTEIN CSF (BEAKER) (test code = 13 mg/dL 15-45 L 378) Private Detective ID - [id number] METABOLIC [id number] 16:48:28 Test Item Value Reference Range Interpretation [...] S NOT APPLICABLE FOR DIALYSIS PATIEN TS. Private Detective ID Chris SIMPSON [id number] 16:41:27 Test Item Value Reference Range Interpretation Comments PHOSPHORUS (BEAKER) 3.7 mg/dL 2.3-4.7 Specimen slightly (test code = 604) hemolyzed Private Detective ID Chris SIMPSON WMENINGITIS/ENCEPHALITIS [id number] 16:26:56 Test Item Value Reference Range Interpretation Comments E COLI K1 (test code = Not detected Not detected 08560-1) HAEMOPHILUS INFLUENZAE Not detected Not detected (test code = 49031-2) LISTERIA MONOCYTOGENES Not detected Not detected (test code = 50244-9) NEISSERIA MENINGITIDIS Not detected Not detected (test code = 94211-6) STREPTOCOCCUS Not detected Not detected AGALACTIAE (test code = 62329-4) STREPTOCOCCUS Not detected Not detected PNEUMONIAE (test code = 05748-3) Cytomegalovirus (CMV) Not detected Not detected (test code = 09781-6) ENTEROVIRUS (test code Not detected Not detected = 10280-0) Human herpesvirus 6 Not detected Not detected (HHV-6) (test code = 23101-7) Herpes simplex virus Not detected Not detected 1(HSV-1) (test code = 77825-3) HERPES SIMPLEX VIRUS Not detected Not detected 2(HSV-2) (test code = 92993-4) Human parechovirus Not detected Not detected (test code = 52607-1) Varicella-zoster virus Not detected Not detected (VZV) (test code = 12657-9) Cryptococcus Not detected Not detected neoformans/gattii (test code = 66061-3) CECELIA (test code = CECELIA) The performance [...] [facility] using the [employer] Meningitis Encephalitis Panel. It is FDA cleared and has been verified and approved by the [facility] Molecular Diagnostics Laboratory for clinical use. This laboratory is CLIA-certified and [employer] (CAP)-accredited to perform high complexity testing. Lab Interpretation Normal (test code = 08488-0) [facility] HospitalMENINGITIS/ENCEPHALITIS [id number] 16:26:56 Test Item Value Reference Range Interpretation Comments E COLI K1 (test code = Not detected Not detected 30347-3) HAEMOPHILUS INFLUENZAE Not detected Not detected (test code = 93175-0) LISTERIA MONOCYTOGENES Not detected Not detected (test code = 19153-7) NEISSERIA MENINGITIDIS Not detected Not detected (test code = 94861-2) STREPTOCOCCUS Not detected Not detected AGALACTIAE (test code = 05750-7) STREPTOCOCCUS Not detected Not detected PNEUMONIAE (test code = 38285-8) Cytomegalovirus (CMV) Not detected Not detected (test code = 68086-8) ENTEROVIRUS (test code Not detected Not detected = 85393-9) Human herpesvirus 6 Not detected Not detected (HHV-6) (test code = 50082-9) Herpes simplex virus Not detected Not detected 1(HSV-1) (test code = 94502-2) HERPES SIMPLEX VIRUS Not detected Not detected 2(HSV-2) (test code = 88973-4) Human parechovirus Not detected Not detected (test code = 38952-6) Varicella-zoster virus Not detected Not detected (VZV) (test code = 08321-4) Cryptococcus Not detected Not detected neoformans/gattii (test code = 54821-6) CECELIA (test code = CECELIA) The performance [...] [facility] using the [employer] Meningitis Encephalitis Panel. It is FDA cleared and has been verified and approved by the [facility] Molecular Diagnostics Laboratory for clinical use. This laboratory is CLIA-certified and [employer] (CAP)-accredited to perform high complexity testing. Lab Interpretation Normal (test code = 90355-4) [facility]PHALITIS [id number] 16:26:56 Test Item Value Reference Range Interpretation Comments E COLI K1 (test code = Not detected Not detected 02211-9) HAEMOPHILUS INFLUENZAE Not detected Not detected (test code = 63419-0) LISTERIA MONOCYTOGENES Not detected Not detected (test code = 72770-4) NEISSERIA MENINGITIDIS Not detected Not detected (test code = 65273-6) STREPTOCOCCUS Not detected Not detected AGALACTIAE (test code = 57715-8) STREPTOCOCCUS Not detected Not detected PNEUMONIAE (test code = 17701-6) Cytomegalovirus (CMV) Not detected Not detected (test code = 37051-4) ENTEROVIRUS (test code Not detected Not detected = 80073-3) Human herpesvirus 6 Not detected Not detected (HHV-6) (test code = 59909-8) Herpes simplex virus Not detected Not detected 1(HSV-1) (test code = 53969-0) HERPES SIMPLEX VIRUS Not detected Not detected 2(HSV-2) (test code = 53125-5) Human parechovirus Not detected Not detected (test code = 97688-6) Varicella-zoster virus Not detected Not detected (VZV) (test code = 06719-6) Cryptococcus Not detected Not detected neoformans/gattii (test code = 34634-2) CECELIA (test code = CECELIA) The performance [...] was tested at the [facility] [place] [facility] using the [employer] Film[employer] Meningitis Encephalitis Panel. It is FDA cleared and has been verified and approved by the [facility] Molecular Diagnostics Laboratory for clinical use. This laboratory is CLIA-certified and [employer] (CAP)-accredited to perform high complexity testing. Lab Interpretation Normal (test code = 38420-5) [facility]PHALITIS [id number] 16:26:56 Test Item Value Reference Range Interpretation Comments E COLI K1 (test code = Not detected Not detected 54088-8) HAEMOPHILUS INFLUENZAE Not detected Not detected (test code = 88052-5) LISTERIA MONOCYTOGENES Not detected Not detected (test code = 58325-3) NEISSERIA MENINGITIDIS Not detected Not detected (test code = 26699-8) STREPTOCOCCUS Not detected Not detected AGALACTIAE (test code = 96746-8) STREPTOCOCCUS Not detected Not detected PNEUMONIAE (test code = 88681-9) Cytomegalovirus (CMV) Not detected Not detected (test code = 04033-9) ENTEROVIRUS (test code Not detected Not detected = 46255-9) Human herpesvirus 6 Not detected Not detected (HHV-6) (test code = 58751-3) Herpes simplex virus Not detected Not detected 1(HSV-1) (test code = 69657-2) HERPES SIMPLEX VIRUS Not detected Not detected 2(HSV-2) (test code = 32996-8) Human parechovirus Not detected Not detected (test code = 52736-6) Varicella-zoster virus Not detected Not detected (VZV) (test code = 48080-6) Cryptococcus Not detected Not detected neoformans/gattii (test code = 25255-1) CECELIA (test code = CECELIA) The performance [...] [facility] using the [employer] Meningitis Encephalitis Panel. It is FDA cleared and has been verified and approved by the [facility] Molecular Diagnostics Laboratory for clinical use. This laboratory is CLIA-certified and [employer] (CAP)-accredited to perform high complexity testing. Lab Interpretation Normal (test code = 69920-9) [facility]PHALITIS [id number] 16:26:56 Test Item Value Reference Range Interpretation Comments E COLI K1 (test code = Not detected Not detected 99477-1) HAEMOPHILUS INFLUENZAE Not detected Not detected (test code = 79803-6) LISTERIA MONOCYTOGENES Not detected Not detected (test code = 61108-9) NEISSERIA MENINGITIDIS Not detected Not detected (test code = 69968-2) STREPTOCOCCUS Not detected Not detected AGALACTIAE (test code = 22688-8) STREPTOCOCCUS Not detected Not detected PNEUMONIAE (test code = 00805-7) Cytomegalovirus (CMV) Not detected Not detected (test code = 88918-2) ENTEROVIRUS (test code Not detected Not detected = 57970-6) Human herpesvirus 6 Not detected Not detected (HHV-6) (test code = 78037-9) Herpes simplex virus Not detected Not detected 1(HSV-1) (test code = 04663-0) HERPES SIMPLEX VIRUS Not detected Not detected 2(HSV-2) (test code = 40944-2) Human parechovirus Not detected Not detected (test code = 95306-3) Varicella-zoster virus Not detected Not detected (VZV) (test code = 61255-2) Cryptococcus Not detected Not detected neoformans/gattii (test code = 59870-4) CECELIA (test code = CECELIA) The performance [...] [facility] using the [employer] Meningitis Encephalitis Panel. It is FDA cleared and has been verified and approved by the [facility] Molecular Diagnostics Laboratory for clinical use. This laboratory is CLIA-certified and [employer] (CAP)-accredited to perform high complexity testing. Lab Interpretation Normal (test code = 69340-1) [facility]ITIS [id number] 16:26:56 Test Item Value Reference Range Interpretation Comments ESCHERICHIA COLI K1 (test code = Not detected Not detected 20151225) HAEMOPHILUS INFLUENZAE (test Not detected Not detected code = 3326032) LISTERIA MONOCYTOGENES (test Not detected Not detected code = 2565837) NEISSERIA MENINGITIDIS (test Not detected Not detected code = 9113243) STREPTOCOCCUS AGALACTIAE (test Not detected Not detected code = 4583029) STREPTOCOCCUS PNEUMONIAE (test Not detected Not detected code = 2996943) CYTOMEGALOVIRUS (CMV) (test code Not detected Not detected = 20151231) ENTEROVIRUS (test code = Not detected Not detected 3244696) HUMAN HERPESVIRUS 6 (HHV-6) Not detected Not detected (test code = 5957673) HERPES SIMPLEX VIRUS 1(HSV-1) Not detected Not detected (test code = 9625118) HERPES SIMPLEX VIRUS 2(HSV-2) Not detected Not detected (test code = 2144811) HUMAN PARECHOVIRUS (test code = Not detected Not detected 1503817) VARICELLA-ZOSTER VIRUS (VZV) Not detected Not detected (test code = 2990336) CRYPTOCOCCUS NEOFORMANS/GATTII Not detected Not detected (test code = 8641718) The performance of this test has not [...] [facility] using the [employer] MeningitisEncephalitis Panel. It is FDA cleared and has been verified and approved by the [facility] Molecular Diagnostics Laboratory for clinical use. This laboratory is CLIA-certified and [employer] g[employer] (CAP)-accredited to perform high complexity testing.CSF cell count with [id number] 16:03:36 Test Item Value Reference Range Interpretation Comments Appearance (test Clear Clear code = 67514-0) Color (test code = Colorless Colorless 88396-3) RBCs (test code = 0 See_Comment [Automate d message] 792-2) The system [employer] generated this result transmit sally reference range : 0 - 5 /cu mm. The reference range was not used to interpret this result as normal/abnormal . WBCs (test code = 0 See_Comment [Automate d message] 806-0) The system [employer] generated this result transmit sally reference range : <=5 /cu mm. The reference range was not used to interpret this result as normal/abnormal . RBCs Fresh? (test Not Applicable code = 17810-7) # of Cells Diff'd 0 (test code = 17192-6) Tube Number (test 1 code = 2677) [facility] cell count with [id number] 16:03:36 Test Item Value Reference Range Interpretation Comments Appearance (test Clear Clear code = 35963-1) Color (test code = Colorless Colorless 37885-5) RBCs (test code = 0 See_Comment [Automate d message] 792-2) The system [employer] generated this result transmit sally reference range : 0 - 5 /cu mm. The reference range was not used to interpret this result as normal/abnormal . WBCs (test code = 0 See_Comment [Automate d message] 806-0) The system [employer] generated this result transmit sally reference range : <=5 /cu mm. The reference range was not used to interpret this result as normal/abnormal . RBCs Fresh? (test Not Applicable code = 48648-2) # of Cells Diff'd 0 (test code = 95185-8) Tube Number (test 1 code = 2677) [facility] cell count with [id number] 16:03:36 Test Item Value Reference Range Interpretation Comments Appearance (test Clear Clear code = 22635-5) Color (test code = Colorless Colorless 19125-9) RBCs (test code = 0 See_Comment [Automate d message] 792-2) The system [employer] generated this result transmit sally reference range : 0 - 5 /cu mm. The reference range was not used to interpret this result as normal/abnormal . WBCs (test code = 0 See_Comment [Automate d message] 806-0) The system [employer] generated this result transmit sally reference range : <=5 /cu mm. The reference range was not used to interpret this result as normal/abnormal . RBCs Fresh? (test Not Applicable code = 84138-5) # of Cells Diff'd 0 (test code = 67562-7) Tube Number (test 1 code = 2677) [facility] cell count with [id number] 16:03:36 Test Item Value Reference Range Interpretation Comments Appearance (test Clear Clear code = 42559-8) Color (test code = Colorless Colorless 31331-8) RBCs (test code = 0 See_Comment [Automate d message] 792-2) The system [employer] generated this result transmit sally reference range : 0 - 5 /cu mm. The reference range was not used to interpret this result as normal/abnormal . WBCs (test code = 0 See_Comment [Automate d message] 806-0) The system [employer] generated this result transmit sally reference range : <=5 /cu mm. The reference range was not used to interpret this result as normal/abnormal . RBCs Fresh? (test Not Applicable code = 11086-2) # of Cells Diff'd 0 (test code = 54633-6) Tube Number (test 1 code = 2677) [facility] cell count with furglczokkku6078-23-72 16:03:36 Test Item Value Reference Range Interpretation Comments Appearance (test Clear Clear code = 85289-5) Color (test code = Colorless Colorless 22817-3) RBCs (test code = 0 See_Comment [Automate d message] 792-2) The system [employer] generated this result transmit sally reference range : 0 - 5 /cu mm. The reference range was not used to interpret this result as normal/abnormal . WBCs (test code = 0 See_Comment [Automate d message] 806-0) The system [employer] generated this result transmit sally reference range : <=5 /cu mm. The reference range was not used to interpret this result as normal/abnormal . RBCs Fresh? (test Not Applicable code = 37716-2) # of Cells Diff'd 0 (test code = 08933-4) Tube Number (test 1 code = 2677) [facility] CELL COUNT [id number] 16:03:36 Test Item Value Reference Range Interpretation Comments APPEARANCE CSF Clear Clear (BEAKER) (test code = 407) COLOR CSF (BEAKER) Colorless Colorless (test code = 408) RBC CSF (BEAKER) 0 /cu mm 0-5 (test code = 409) WBC CSF (BEAKER) 0 /cu mm See_Comment [Automated message] (test code = 1020) The syste [employer] which generated this result transmit sally reference range : <=5. The refere nce range was not u sed to interpret th is result as normal/abnormal . RBCS FRESH (BEAKER) Not Applicable (test code = 1444) NUMBER OF CELLS 0 DIFF'D (BEAKER) (test code = 1591) TUBE NUMBER CSF 1 (BEAKER) (test code = 2678) Glucose, [id number] 14:55:50 Test Item Value Reference Range Interpretation Comments Glucose, CSF (test code = 68 mg/dL 40-70 2342-4) CECELIA (test code = CECELIA) Private Detective ID - CALVIN W Lab Interpretation (test Normal code = 96586-9) [facility] [id number] 14:55:50 Test Item Value Reference Range Interpretation Comments Glucose, CSF (test code = 68 mg/dL 40-70 2342-4) CECELIA (test code = CECELIA) Private Detective ID - CALVIN W Lab Interpretation (test Normal code = 50251-1) [facility], [id number] 14:55:50 Test Item Value Reference Range Interpretation Comments Glucose, CSF (test code = 68 mg/dL 40-70 2342-4) CECELIA (test code = CECELIA) Private Detective ID - CALVIN W Lab Interpretation (test Normal code = 45480-3) [facility], [id number] 14:55:50 Test Item Value Reference Range Interpretation Comments Glucose, CSF (test code = 68 mg/dL 40-70 2342-4) CECELIA (test code = CECELIA) Private Detective ID - CALVIN W Lab Interpretation (test Normal code = 83826-6) [facility], [id number] 14:55:50 Test Item Value Reference Range Interpretation Comments Glucose, CSF (test code = 68 mg/dL 40-70 2342-4) CECELIA (test code = CECELIA) Private Detective ID - CALVIN W Lab Interpretation (test Normal code = 28134-0) [facility]SE, [id number] 14:55:50 Test Item Value Reference Range Interpretation Comments GLUCOSE CSF (BEAKER) (test code = 68 mg/dL 40-70 406) Private Detective JAZLYN EUCEDAHENYTOIN LEVEL, [id number] 13:12:52 Test Item Value Reference Range Interpretation Comments PHENYTOIN (DILANTIN) (BEAKER) 14.6 ug/mL 10.0-20.0 (test code = 605) Private Detective JAZLYN [id number] 13:10:45 Test Item Value Reference Range Interpretation Comments PHOSPHORUS (BEAKER) (test code = 1.3 mg/dL 2.3-4.7 LL 604) Private Detective ID Chris SIMPSON WBASIC METABOLIC [id number] 13:10:24 Test Item Value Reference Range Interpretation [...] S NOT APPLICABLE FOR DIALYSIS PATIEN TS. Private Detective ID - CALVIN [id number] 13:08:12 Test Item Value Reference Range Interpretation Comments MAGNESIUM (BEAKER) (test code = 1.9 mg/dL 1.6-2.6 627) Private Detective ID Chris SIMPSON WHEMOGLOBIN AND [id number] 12:47:46 Test Item Value Reference Range Interpretation Comments HEMOGLOBIN (BEAKER) (test code = 7.5 GM/DL 11.2-15.7 L 410) HEMATOCRIT (BEAKER) (test code = 22.3 % 34.1-44.9 L 411) CBC W/PLT COUNT & AUTO [id number] 12:47:45 Test Item Value Reference Range Interpretation [...] = 2801) RAD, CHEST, 1 VIEW, NON [id number] 09:25:00Reason for exam:->Mechanical VentilationShould this be performed at the bedside?->Yes [facility] CENTERName: MAIK STRATTON : 1965 Sex: FFINAL REPORT Chest, [...] Thayer Verified Date/Time: 08/21/2021 09:25:13 Reading Location: [address] Consult Reading Room POCT- GLUCOSE [id number] 06:30:02 Test Item Value Reference Range Interpretation Comments POC-GLUCOSE METER 89 mg/dL 70-110 : TESTED A T [facility] 6720 (BEAKER) (test code = ANIL DYE [place], 1538) [address]: Private Detective/Techni daniel ID = [id number] for MIGUEL VALENCIA BLOOD GAS, [id number] 05:51:06 Test Item Value Reference Range Interpretation [...] FIO2 (BEAKER) (test code = 1819) 30.0 [id number] 04:38:02 Test Item Value Reference Range Interpretation Comments PHOSPHORUS (BEAKER) (test code = 0.9 mg/dL 2.3-4.7 LL 604) Private Detective ID - CALVIN WOperator ID Chris SIMPSON WBASIC METABOLIC [id number] 04:08:48 Test Item Value Reference Range Interpretation [...] S NOT APPLICABLE FOR DIALYSIS PATIEN TS. Private Detective ID Chris SIMPSON [id number] 04:03:45 Test Item Value Reference Range Interpretation Comments MAGNESIUM (BEAKER) (test code = 1.8 mg/dL 1.6-2.6 627) Private Detective ID Chris SIMPSON WCBC W/PLT COUNT & AUTO [id number] 03:49:05 Test Item Value Reference Range Interpretation [...] PERCENT (BEAKER) (test code = 2801) POCT-GLUCOSE [id number] 00:31:54 Test Item Value Reference Range Interpretation Comments POC-GLUCOSE METER 96 mg/dL 70-110 : [facility] (test code = ANIL Brown [facility], 1538) [address]: Private Detective/Techni daniel ID = [id number] for MIGUEL VALENCIA POCT-GLUCOSE [id number] 22:33:19 Test Item Value Reference Range Interpretation Comments POC-GLUCOSE METER 103 mg/dL 70-110 : [facility] ([facility] (test code = ANIL Brown [facility], 1538) [address]: Private Detective/Techni daniel ID = [id number] for MIGUEL VILLANUEVA POCT-GLUCOSE [id number] 17:39:03 Test Item Value Reference Range Interpretation Comments POC-GLUCOSE METER 65 mg/dL 70-110 L : Notified RN/MD: TESTED (BEPARVIZ) (test code = AT [facility] 67[address] [facility] 1538) [facility], 770 30: Private Detective/Techni daniel ID = [id number] for KWABENA MENDOZA PHENYTOIN LEVEL, [id number] 14:59:35 Test Item Value Reference Range Interpretation Comments PHENYTOIN (DILANTIN) (BEAKER) 20.6 ug/mL 10.0-20.0 H (test code = 605) Private Detective ID - AC FLORES, ABDOMEN/KUB, 1 VIEW [id number] 12:59:00Reason for exam:->Corpak placement [facility]KI STRATTON : 1965 Sex: FFINAL REPORT [...] Thayer Verified Date/Time: 08/20/2021 12:59:34 Reading Location: [address] Consult Reading Room POCT-GLUCOSE METER 2021-08-20 12:16:21 Test Item Value Reference Range Interpretation Comments POC-GLUCOSE METER 97 mg/dL 70-110 : TESTED A T [facility] 6720 (BEAKER) (test code = [facility] [place], 153) [address]: Private Detective/Techni daniel ID = [id number] for KWABENA MENDOZA POCT-GLUCOSE [id number] 11:16:00 Test Item Value Reference Range Interpretation Comments POC-GLUCOSE METER 56 mg/dL 70-110 L : TESTED A T [facility] 6720 (BEAKER) (test code = [facility], [place], 153) [address]: Private Detective/Techni daniel ID = [id number] for MICHAEL MENDIOLA POCT-GLUCOSE [id number] 07:13:57 Test Item Value Reference Range Interpretation Comments POC-GLUCOSE METER 103 mg/dL 70-110 : TESTED A T [facility] 6720 (BEAKER) (test code = [facility] [place], 153) [address]: Private Detective/Techni daniel ID = [id number] for MIGUEL VILLANUEVA POCT-GLUCOSE [id number] 06:22:57 Test Item Value Reference Range Interpretation Comments POC-GLUCOSE METER 52 mg/dL 70-110 L : TESTED A T [facility] 6720 (BEAKER) (test code = [facility] [place], 153) [address]: Private Detective/Techni daniel ID = [id number] for MIGUEL VALENCIA BASIC METABOLIC [id number] 05:20:43 Test Item Value Reference Range Interpretation [...] S NOT APPLICABLE FOR DIALYSIS PATIEN TS. Private Detective ID - BANDAR [id number] 05:13:27 Test Item Value Reference Range Interpretation Comments MAGNESIUM (BEAKER) (test code = 1.9 mg/dL 1.6-2.6 627) Private Detective ID - BANDAR [id number] 05:13:27 Test Item Value Reference Range Interpretation Comments PHOSPHORUS (BEAKER) (test code = 2.5 mg/dL 2.3-4.7 604) Private Detective ID - BANDAR MPTH, [id number] 05:10:33 Test Item Value Reference Range Interpretation Comments PARATHYROID HORMONE INTACT 172.7 pg/mL 8.5-72.5 H (BEAKER) (test code = 577) Private Detective ID - BANDAR MBLOOD GAS, [id number] 04:57:07 Test Item Value Reference Range Interpretation [...] 1819) 30.0 CBC W/PLT COUNT & AUTO [id number] 04:52:45 Test Item Value Reference Range Interpretation [...] PERCENT (BEAKER) (test code = 2801) POCT-GLUCOSE [id number] 19:16:36 Test Item Value Reference Range Interpretation Comments POC-GLUCOSE METER 87 mg/dL 70-110 : TESTED A T [facility] 6720 (BEAKER) (test code = ANIL Brown [facility], 1538) [address]: Private Detective/Techni daniel ID = [id number] for Step toe, Mary POCT-GLUCOSE [id number] 12:02:52 Test Item Value Reference Range Interpretation Comments POC-GLUCOSE METER 123 mg/dL 70-110 H : TESTED A T [facility] 1317 (BEAKER) (test code [facility] [address], = 1538) [facility] 77 478: Private Detective/Techni daniel ID = [id number] for Ali, Rosa RAD, ABDOMEN/KUB 1 VIEW [id number] 11:20:00Reason for exam:->Enteric tube placement verification [facility] 1965 Sex: [...] MDReport Verified Date/Time: 08/19/2021 11:20:09 Reading Location: [facility] Radiology Reading Room RAD, CHEST, 1 VIEW, NON [id number] 11:20:00Reason for exam:->[facility]: [facility] STRATTON : 1965 Sex: FFINAL REPORT [...] MDReport Verified Date/Time: 08/19/2021 11:20:09 Reading Location: [facility] Radiology Reading Room SARS-CoV2/RT-PCR (Asymptomatic ONLY)2021-08-19 10:42:27 Test Item Value Reference Interpretation Comments Range SARS-COV2/RT-PCR Negative Negative The SARS-Co V-2 (test code = target nucleic 91678-8) acids are not detected in thi s [...] revoked sooner. Fact Sheet for Healthcare Providers: https://www.TourNative/Documents/Xp ert%20Xpress%20SAR S%20CoV-2/Fact%20S heets/302-3802%20S ARS-COV-2%20HEALTH CARE%20PROVIDERS%2 0FACT%20SHEET.pdf Fact Sheet for Healthcare Patients: https://wwwAttune RTD/Documents/Xp ert%20Xpress%20SAR S%20CoV-2/Fact%20S heets/302-3801%20S ARS-COV-2%20PATIEN T%20FACT%20SHEET.p df Lab Interpretation Normal (test code = 40739-3) [facility]2021-08-19 10:42:27 Test Item Value Reference Interpretation Comments Range SARS-COV2/RT-PCR Negative Negative The SARS-Co V-2 (test code = target nucleic 79724-9) acids are not detected in thi s [...] revoked sooner. Fact Sheet for Healthcare Providers: https://www.TourNative/Documents/Xp ert%20Xpress%20SAR S%20CoV-2/Fact%20S heets/302-3802%20S ARS-COV-2%20HEALTH CARE%20PROVIDERS%2 0FACT%20SHEET.pdf Fact Sheet for Healthcare Patients: https://www.TourNative/Documents/Xp ert%20Xpress%20SAR S%20CoV-2/Fact%20S heets/302-3801%20S ARS-COV-2%20PATIEN T%20FACT%20SHEET.p df Lab Interpretation Normal (test code = 68079-6) [facility])2021-08-19 10:42:27 Test Item Value Reference Range Interpretation Comments SARS-COV2/RT-PCR Negative Negative The SARS-Co V-2 target (test code = nucleic acids a re not 5661590) detected in thi s specimen. Negative result s do not preclude SARS-C oV-2 infection and s hould not be used as the nataly e basis for patient managem ent decisions. Nega tive results must be combine d with clinical observ ations, patient history , and epidemiological information. A false negativ e result may occur if a spec imen is improperly perez ected, transported or handled. This SARS CoV-2 [...] revoked sooner. Fact Sheet for Healthcare Providers: https://Modusly.Greats/Documents/Xpert%20Xpress%20SARS%20CoV-2/Fact%20Sheets/302-3802%12OCSU-FCH-2%20 HEALTHCARE%20PROVIDERS%20FACT%20SHEET.pdf Fact Sheet for Healthcare Patients: https://www.Nanapi/Documents/Xpert%20Xp ress%20SARS%20CoV-2/Fact%20Sheets/302-3801%11WOVX-JXN-1%20PATIENT%20FACT%20SHEET .pdfBLOOD GAS, [id number] 09:40:43 Test Item Value Reference Range Interpretation [...] (BEAKER) (test code = 1819) 100.0 POCT-GLUCOSE [id number] 08:21:17 Test Item Value Reference Range Interpretation Comments POC-GLUCOSE METER 125 mg/dL 70-110 H : TESTED A T [facility] 1317 (BEAKER) (test code [address], = 1538) [facility] 77 478: Private Detective/Techni daniel ID = [id number] for Rosa Steward POCT-GLUCOSE [id number] 06:20:10 Test Item Value Reference Range Interpretation Comments POC-GLUCOSE METER 102 mg/dL 70-110 : TESTED A T [facility] 1317 (BEAKER) (test code [address], = 1538) [facility] 77 478: Private Detective/Techni daniel ID = [id number] for Garc Renu antona BASIC METABOLIC [id number] 04:52:02 Test Item Value Reference Range Interpretation [...] S NOT APPLICABLE FOR DIALYSIS PATIEN TS. Private Detective ID - [id number] ID - kkir81Bkgahabn ID - rxwm01Idnzfhvg ID - uodc14Qrdvdsas ID - hpce49Swbzjklg ID - dsme72Bfpvtojc ID - cdsw28Qncedhhf ID - ddan97Bbccfoke ID - babi05Zyettift ID - ctpy20Tcgydhhn ID - jgno90Mptknoei ID - yfpk15Gztcvkgz ID - anpd49ZLT W/PLT COUNT & AUTO [id number] 04:27:22 Test Item Value Reference Range Interpretation [...] PERCENT (BEAKER) (test code = 2801) POCT-GLUCOSE [id number] 21:18:21 Test Item Value Reference Range Interpretation Comments POC-GLUCOSE METER 71 mg/dL 70-110 : [facility] ([facility] (test code = [address], 1538) [place] [address]: Private Detective/Techni daniel ID = [id number] for Maggie Hess [id number] 18:25:36 Test Item Value Reference Range Interpretation Comments MAGNESIUM (BEAKER) (test code = 1.8 mg/dL 1.5-3.0 627) Private Detective ID - [id number], BRAIN, WITHOUT [id number] 16:05:00Unlisted Reason for Exam - Click Yes and Enter Reason Below->No [facility] STRATTON : 1965 Sex: FFINAL REPORT [...] further characterization. Signed: Ruth Benítezort Verified Date/Time: 08/18/2021 16:05:59 MR, BRAIN, WITHOUT [id number] 15:48:00Unlisted Reason for Exam - Click Yes and Enter Reason Below->NoDoes the patient have an implantedelectronic device?->No [facility] : 1965 Sex: [...] Benítez MDReport Verified Date/Time: 08/18/2021 15:48:54 POCT-GLUCOSE [id number] 10:47:44 Test Item Value Reference Range Interpretation Comments POC-GLUCOSE METER 87 mg/dL 70-110 : TESTED A T [facility] 1317 (BEAKER) (test code = [address], 1538) [facility] 77 [address]: Private Detective/Techni daniel ID = [id number] for Yanni Brooks COMPREHENSIVE METABOLIC [id number] 10:20:59 Test Item Value Reference Range Interpretation [...] S NOT APPLICABLE FOR DIALYSIS PATIEN TS. Private Detective ID - DSENSONOperator ID - DSENSONOperator ID - DSENSONOperator ID - DSENSONOperator ID - DSENSONOperator ID - DSENSONOperator ID - DSENSONOperator ID - DSENSONOperator ID - DSENSONOperator ID - DSENSONOperator ID - DSENSONOperator ID - DSENSONOperator ID - DSENSONOperator ID - DSENSONOperatorID - DSENSONOperator ID - DSENSONOperator ID - DSENSONOperator ID - DSENSONOperator ID - DSENSONCBC W/PLT COUNT & AUTO [id number] 10:04:14 Test Item Value Reference Range Interpretation [...] PERCENT (BEAKER) (test code = 2801) POCT-GLUCOSE [id number] 09:00:00 Test Item Value Reference Range Interpretation Comments POC-GLUCOSE METER 101 mg/dL 70-110 : TESTED A T [facility] 1317 (BEAKER) (test code [address], = 1538) [place] [address]: Private Detective/Techni daniel ID = [id number] for Teresa Tobiaszabeth POCT-GLUCOSE [id number] 17:42:08 Test Item Value Reference Range Interpretation Comments POC-GLUCOSE METER 81 mg/dL 70-110 : TESTED A T [facility] 1317 (BEAKER) (test code = [address], 1538) [place] [address]: Private Detective/Techni daniel ID = [id number] for Shaun sDrakeYanni POCT-GLUCOSE [id number] 12:45:03 Test Item Value Reference Range Interpretation Comments POC-GLUCOSE METER 79 mg/dL 70-110 : TESTED A T [facility] 1317 (BEAKER) (test code = [address], 1538) [place] [address]: Private Detective/Techni daniel ID = [id number] for Shaun sDrakeYanni POCT-GLUCOSE [id number] 10:51:04 Test Item Value Reference Range Interpretation Comments POC-GLUCOSE METER 63 mg/dL 70-110 L : TESTED A T [facility]17 (BEAKER) (test code = [address], 1538) [place] [address] 478: Private Detective/Techni daniel ID = [id number] for Andi Richey COMPREHENSIVE METABOLIC [id number] 06:32:44 Test Item Value Reference Range Interpretation [...] S NOT APPLICABLE FOR DIALYSIS PATIEN TS. Private Detective ID - [id number] ID - qkrx09Hiyudmdv ID - qzzx87Fixbfulf ID - kqma80Jbqmobcw ID - pnjw61Yemipwlm ID - jkpd21Vdeyaezl ID - vcey56Urhaobru ID - ixir85Hkkascmz ID - stzd53Iyenwkra ID - eyoo83Gvpmtqhd ID - juen25Lffzoyrb ID - otbg47Jhsifabc ID - zigo50Gyxlsmez ID - cwxo30Jveatrpf ID - udxa46Kknhjmov ID - [id number] 06:29:37 Test Item Value Reference Range Interpretation Comments MAGNESIUM (BEAKER) 1.8 mg/dL 1.5-3.0 Specimen slightly (test code = 627) hemolyzed Private Detective ID - [id number] ID - rnoe69Vdtolllk ID - avgp00Igsftpzc ID - [id number] CBC W/PLT COUNT & AUTO [id number] 05:55:19 Test Item Value Reference Range Interpretation [...] (test code = 2801) ANG, TUNNELED CATHETER [id number] 10:38:00Reason for Central Line/PICC?->Need for hemodialysis accessReason for exam:->esrd [facility] STRATTON : 1965 Sex: FFINAL REPORT [...] MDReport Verified Date/Time: 08/16/2021 10:38:20 Reading Location: [facility] Radiology Reading Room REHENSIVE METABOLIC [id number] 05:55:05 Test Item Value Reference Range Interpretation [...] S NOT APPLICABLE FOR DIALYSIS PATIEN TS. Private Detective ID - LITOOperator ID - LITOOperator ID - LITOOperator ID - LITOOperator ID - LITOOperator ID - LITOOperator ID - LITOOperator ID - LITOOperator ID - LITOOperator ID - LITOOperator ID - LITOOperator ID - LITOOperator ID - LITOOperator ID - LITOOperator ID - LITOOperator ID - [id number] 05:48:01 Test Item Value Reference Range Interpretation Comments MAGNESIUM (BEAKER) (test code = 1.6 mg/dL 1.5-3.0 627) Private Detective ID - LITOOperator ID - LITOOperator ID - LITOOperator ID - LITOCBC W/PLT COUNT & AUTO [id number] 05:28:26 Test Item Value Reference Range Interpretation [...] = 2801) GI Pathogen Profile by PCR-ID [id number] 18:38:44 Test Item Value Reference Range Interpretation Comments CAMPYLOBACTER PCR (test Not detected Not detected code = 77147-4) PLESIOMONAS SHIGELLOIDES Not detected Not detected (PCR) (test code = 88072-7) SALMONELLA (PCR) (test Not detected Not detected code = 16561-1) YERSINIA ENTEROCOLITICA Not detected Not detected (PCR) (test code = 72881-8) VIBRIO CHOLERAE (PCR) Not detected Not detected (test code = 07500-4) ENTEROAGGREGATIVE E. Not detected Not detected COLI (EAEC) BY PCR (test code = 24145-8) ENTEROPATHOGENIC E. COLI Not detected Not detected (EPEC) BY PCR (test code = 43222-2) ENTEROTOXIGENIC E. COLI Not detected Not detected (ETEC) LT/ST BY PCR (test code = 64717-5) SHIGA-LIKE Not detected Not detected TOXIN-PRODUCING E. COLI (STEC) STX1/STX2 (test code = 76061-9) E. COLI O157 (PCR) (test code = 44552-5) SHIGELLA/ENTEROINVASIVE Not detected Not detected E. COLI (EIEC) BY PCR (test code = 17519-8) CRYPTOSPORIDIUM (PCR) Not detected Not detected (test code = 25206-2) CYCLOSPORA CAYETANENSIS Not detected Not detected (PCR) (test code = 00009-9) ENTAMOEBA HISTOLYTICA Not detected Not detected (PCR) (test code = 19772-8) GIARDIA LAMBLIA (PCR) Not detected Not detected (test code = 36540-1) ADENOVIRUS F 40/41 (PCR) Not detected Not detected (test code = 09037-8) ASTROVIRUS (PCR) (test Not detected Not detected code = 26132-2) NOROVIRUS GI/GII (PCR) Not detected Not detected (test code = 31815-7) ROTAVIRUS A (PCR) (test Not detected Not detected code = 74918-4) SAPOVIRUS (I, II, IV, V) Not detected Not detected BY PCR (test code = 58331-9) VIBRIO Not detected Not detected (PARAHAEMOLYTICUS, VULNIFICUS) (test code = 81993-7) CECELIA (test code = CECELIA) Other viruses, [...] [facility] using the [employer] Gastrointestinal Panel. It is FDA cleared and has been verified and approved by the [facility] Molecular Diagnostics Laboratory for clinical use. This laboratory is CLIA-certified and [employer] (CAP)-accredited to perform high complexity testing. [facility]-ID [id number] 18:38:44 Test Item Value Reference Range Interpretation Comments CAMPYLOBACTER PCR (test Not detected Not detected code = 12315-3) PLESIOMONAS SHIGELLOIDES Not detected Not detected (PCR) (test code = 66232-3) SALMONELLA (PCR) (test Not detected Not detected code = 95197-9) YERSINIA ENTEROCOLITICA Not detected Not detected (PCR) (test code = 46612-1) VIBRIO CHOLERAE (PCR) Not detected Not detected (test code = 02134-8) ENTEROAGGREGATIVE E. Not detected Not detected COLI (EAEC) BY PCR (test code = 89513-0) ENTEROPATHOGENIC E. COLI Not detected Not detected (EPEC) BY PCR (test code = 72542-6) ENTEROTOXIGENIC E. COLI Not detected Not detected (ETEC) LT/ST BY PCR (test code = 82135-8) SHIGA-LIKE Not detected Not detected TOXIN-PRODUCING E. COLI (STEC) STX1/STX2 (test code = 24309-9) E. COLI O157 (PCR) (test code = 38837-5) SHIGELLA/ENTEROINVASIVE Not detected Not detected E. COLI (EIEC) BY PCR (test code = 53732-0) CRYPTOSPORIDIUM (PCR) Not detected Not detected (test code = 99463-9) CYCLOSPORA CAYETANENSIS Not detected Not detected (PCR) (test code = 18307-7) ENTAMOEBA HISTOLYTICA Not detected Not detected (PCR) (test code = 16804-1) GIARDIA LAMBLIA (PCR) Not detected Not detected (test code = 30515-3) ADENOVIRUS F 40/41 (PCR) Not detected Not detected (test code = 05336-9) ASTROVIRUS (PCR) (test Not detected Not detected code = 37797-7) NOROVIRUS GI/GII (PCR) Not detected Not detected (test code = 62859-4) ROTAVIRUS A (PCR) (test Not detected Not detected code = 99365-6) SAPOVIRUS (I, II, IV, V) Not detected Not detected BY PCR (test code = 83506-7) VIBRIO Not detected Not detected (PARAHAEMOLYTICUS, VULNIFICUS) (test code = 78162-9) CECELIA (test code = CECELIA) Other viruses, [...] [facility] using the [employer] Gastrointestinal Panel. It is FDA cleared and has been verified and approved by the [facility] Molecular Diagnostics Laboratory for clinical use. This laboratory is CLIA-certified and [employer] (CAP)-accredited to perform high complexity testing. [facility] by PCR-ID [id number] 18:38:44 Test Item Value Reference Range Interpretation Comments CAMPYLOBACTER PCR (test Not detected Not detected code = 11677-6) PLESIOMONAS SHIGELLOIDES Not detected Not detected (PCR) (test code = 43131-4) SALMONELLA (PCR) (test Not detected Not detected code = 53761-6) YERSINIA ENTEROCOLITICA Not detected Not detected (PCR) (test code = 45971-4) VIBRIO CHOLERAE (PCR) Not detected Not detected (test code = 66184-8) ENTEROAGGREGATIVE E. Not detected Not detected COLI (EAEC) BY PCR (test code = 32458-4) ENTEROPATHOGENIC E. COLI Not detected Not detected (EPEC) BY PCR (test code = 21174-1) ENTEROTOXIGENIC E. COLI Not detected Not detected (ETEC) LT/ST BY PCR (test code = 71826-7) SHIGA-LIKE Not detected Not detected TOXIN-PRODUCING E. COLI (STEC) STX1/STX2 (test code = 01985-4) E. COLI O157 (PCR) (test code = 93149-1) SHIGELLA/ENTEROINVASIVE Not detected Not detected E. COLI (EIEC) BY PCR (test code = 51553-4) CRYPTOSPORIDIUM (PCR) Not detected Not detected (test code = 64560-7) CYCLOSPORA CAYETANENSIS Not detected Not detected (PCR) (test code = 56690-5) ENTAMOEBA HISTOLYTICA Not detected Not detected (PCR) (test code = 96647-3) GIARDIA LAMBLIA (PCR) Not detected Not detected (test code = 11419-3) ADENOVIRUS F 40/41 (PCR) Not detected Not detected (test code = 80114-9) ASTROVIRUS (PCR) (test Not detected Not detected code = 91084-1) NOROVIRUS GI/GII (PCR) Not detected Not detected (test code = 99493-7) ROTAVIRUS A (PCR) (test Not detected Not detected code = 87076-9) SAPOVIRUS (I, II, IV, V) Not detected Not detected BY PCR (test code = 38078-6) VIBRIO Not detected Not detected (PARAHAEMOLYTICUS, VULNIFICUS) (test code = 81528-0) CECELIA (test code = CECELIA) Other viruses, [...] [facility] using the [employer] Gastrointestinal Panel. It is FDA cleared and has been verified and approved by the [facility] Molecular Diagnostics Laboratory for clinical use. This laboratory is CLIA-certified and [employer] (CAP)-accredited to perform high complexity testing. [facility] by PCR-ID [id number] 18:38:44 Test Item Value Reference Range Interpretation Comments CAMPYLOBACTER (PCR) Not detected Not detected (test code = 03325-3) PLESIOMONAS SHIGELLOIDES Not detected Not detected (PCR) (test code = 12818-8) SALMONELLA (PCR) (test Not detected Not detected code = 91673-1) YERSINIA ENTEROCOLITICA Not detected Not detected (PCR) (test code = 87963-0) VIBRIO CHOLERAE (PCR) Not detected Not detected (test code = 77417-1) ENTEROAGGREGATIVE E. Not detected Not detected COLI (EAEC) BY PCR (test code = 09487-9) ENTEROPATHOGENIC E. COLI Not detected Not detected (EPEC) BY PCR (test code = 21352-9) ENTEROTOXIGENIC E. COLI Not detected Not detected (ETEC) LT/ST BY PCR (test code = 97694-0) SHIGA-LIKE Not detected Not detected TOXIN-PRODUCING E. COLI (STEC) STX1/STX2 (test code = 25813-0) E. COLI O157 (PCR) (test code = 22406-8) SHIGELLA/ENTEROINVASIVE Not detected Not detected E. COLI (EIEC) BY PCR (test code = 55975-9) CRYPTOSPORIDIUM (PCR) Not detected Not detected (test code = 03363-5) CYCLOSPORA CAYETANENSIS Not detected Not detected (PCR) (test code = 12973-7) ENTAMOEBA HISTOLYTICA Not detected Not detected (PCR) (test code = 67554-7) GIARDIA LAMBLIA (PCR) Not detected Not detected (test code = 37938-2) ADENOVIRUS F 40/41 (PCR) Not detected Not detected (test code = 12263-1) ASTROVIRUS (PCR) (test Not detected Not detected code = 59757-3) NOROVIRUS GI/GII (PCR) Not detected Not detected (test code = 26800-8) ROTAVIRUS A (PCR) (test Not detected Not detected code = 64898-1) SAPOVIRUS (I, II, IV, V) Not detected Not detected BY PCR (test code = 27824-8) VIBRIO Not detected Not detected (PARAHAEMOLYTICUS, VULNIFICUS) (test code = 33427-7) CECELIA (test code = CECELIA) Other viruses, [...] [facility] using the [employer] Gastrointestinal Panel. It is FDA cleared and has been verified and approved by the [facility] Molecular Diagnostics Laboratory for clinical use. This laboratory is CLIA-certified and [employer] (CAP)-accredited to perform high complexity testing. [facility] by PCR-ID [id number] 18:38:44 Test Item Value Reference Range Interpretation Comments CAMPYLOBACTER (PCR) Not detected Not detected (test code = 98987-5) PLESIOMONAS SHIGELLOIDES Not detected Not detected (PCR) (test code = 27636-6) SALMONELLA (PCR) (test Not detected Not detected code = 66043-5) YERSINIA ENTEROCOLITICA Not detected Not detected (PCR) (test code = 36683-4) VIBRIO CHOLERAE (PCR) Not detected Not detected (test code = 78367-7) ENTEROAGGREGATIVE E. Not detected Not detected COLI (EAEC) BY PCR (test code = 43388-6) ENTEROPATHOGENIC E. COLI Not detected Not detected (EPEC) BY PCR (test code = 64313-0) ENTEROTOXIGENIC E. COLI Not detected Not detected (ETEC) LT/ST BY PCR (test code = 48634-4) SHIGA-LIKE Not detected Not detected TOXIN-PRODUCING E. COLI (STEC) STX1/STX2 (test code = 54909-1) E. COLI O157 (PCR) (test code = 93432-1) SHIGELLA/ENTEROINVASIVE Not detected Not detected E. COLI (EIEC) BY PCR (test code = 24787-9) CRYPTOSPORIDIUM (PCR) Not detected Not detected (test code = 32399-6) CYCLOSPORA CAYETANENSIS Not detected Not detected (PCR) (test code = 86640-6) ENTAMOEBA HISTOLYTICA Not detected Not detected (PCR) (test code = 67439-9) GIARDIA LAMBLIA (PCR) Not detected Not detected (test code = 24029-0) ADENOVIRUS F 40/41 (PCR) Not detected Not detected (test code = 15744-3) ASTROVIRUS (PCR) (test Not detected Not detected code = 83723-6) NOROVIRUS GI/GII (PCR) Not detected Not detected (test code = 83451-7) ROTAVIRUS A (PCR) (test Not detected Not detected code = 65562-9) SAPOVIRUS (I, II, IV, V) Not detected Not detected BY PCR (test code = 99995-0) VIBRIO Not detected Not detected (PARAHAEMOLYTICUS, VULNIFICUS) (test code = 11979-9) CECELIA (test code = CECELIA) Other viruses, [...] [facility] using the [employer] Gastrointestinal Panel. It is FDA cleared and has been verified and approved by the [facility] Molecular Diagnostics Laboratory for clinical use. This laboratory is CLIA-certified and [employer] (CAP)-accredited to perform high complexity testing. [facility] BY [id number] 18:38:44 Test Item Value Reference Range Interpretation [...] Not detected BY PCR (test code = 1290748) ENTEROPATHOGENIC E. COLI (EPEC) Not detected Not detected BY PCR (test code = 8496874) ENTEROTOXIGENIC E. COLI (ETEC) Not detected Not detected LT/ST BY PCR (test code = 2390864) SHIGA-LIKE TOXIN-PRODUCING E. Not detected Not detected COLI (STEC) STX1/STX2 (test code = 1398530) E. COLI O157 (PCR) (test code = 6122611) SHIGELLA/ENTEROINVASIVE E. COLI Not detected Not detected (EIEC) BY PCR (test code = 6426738) CRYPTOSPORIDIUM (PCR) (test code Not detected Not detected = 20151102) CYCLOSPORA CAYETANENSIS (PCR) Not detected Not detected (test code = 3600664) ENTAMOEBA HISTOLYTICA (PCR) Not detected Not detected (test code = 1384806) GIARDIA LAMBLIA (PCR) (test code Not detected Not detected = 20151126) ADENOVIRUS F 40/41 (PCR) (test Not detected Not detected code = 20151127) ASTROVIRUS (PCR) (test code = Not detected Not detected 20151128) NOROVIRUS GI/GII (PCR) (test Not detected Not detected code = 9440141) ROTAVIRUS A (PCR) (test code = Not detected Not detected 20151130) SAPOVIRUS (I, II, IV, V) BY PCR Not detected Not detected (test code = 20151201) VIBRIO (PARAHAEMOLYTICUS, Not detected Not detected VULNIFICUS) (test code = 6723587) Other viruses, parasites and bacteria not targeted by this PCR panel cannot be excluded; therefore clinical correlation and follow up of serology, culture results, and other molecular studies is required. The results are not intended to be used as the sole means for clinical diagnosis or patient management decisions. This sample was tested at the [facility] using the [employer] Gastrointestinal Panel. It is FDA cleared and has been verified and approved by the [facility] for clinical use. This laboratory is CLIA-certified and College ofAmerican Pathologists (CAP)-accredited to perform high complexity testing.HEPATITIS B SURFACE [id number] 11:08:29 Test Item Value Reference Range Interpretation Comments HEPATITIS B SURFACE ANTIBODY < mIU/mL <8.0 (BEAKER) (test code = 647) Private Detective ID - BANDAR MHEPATITIS B SURFACE [id number] 04:25:17 Test Item Value Reference Range Interpretation Comments HEPATITIS B SURFACE ANTIGEN (2) Nonreactive Nonreactive (BEAKER) (test code = 2585) Private Detective ID - [id number] METABOLIC [id number] 04:16:49 Test Item Value Reference Range Interpretation [...] S NOT APPLICABLE FOR DIALYSIS PATIEN TS. Private Detective ID - [id number] ID - HMCS39Wcdwhnqu ID - CWCS23Ybmhrdga ID - BKWZ09Kljhegiy ID - ITKW58Ocoeacvm ID - QVLG72Whjublwq ID - RAFI28Avmgppwt ID - ZHWU26Piqhledu ID - DBRD29Abrircum ID - IFFR58Cenwasey ID - UQPF63Vhibbhdu ID - RSEO89Iapofvlq ID - USVN03Bslvrbhc ID - NQVP30Fqdanabi ID - FFES17Jafyujqt ID - [id number] 04:09:54 Test Item Value Reference Range Interpretation Comments MAGNESIUM (BEAKER) 1.9 mg/dL 1.5-3.0 Specimen moderately (test code = 627) hemolyzed Private Detective ID - [id number] ID - [id number] ID - [id number] ID - [id number] CALCIUM, [id number] 03:53:39 Test Item Value Reference Range Interpretation Comments CALCIUM IONIZED (BEAKER) (test 0.86 mmol/L 1.12-1.27 L code = 698) PH, BLOOD (BEAKER) (test code = 7.54 1810) CBC W/PLT COUNT & AUTO [id number] 03:53:15 Test Item Value Reference Range Interpretation [...] (BEAKER) (test code = 2801) Prepare Leuko-Red [id number] 23:55:00 Test Item Value Reference Range Interpretation Comments CROSSMATCH (test code = 2264) COMPATIBLE Unit ABO (test code = O Pos 9874292) UNIT NUMBER (test code = [id number] 934-0) Status (test code = 2256902) TX_TIMEINCHART Blood Bank Product (test code RED BLOOD CELLS = 2263) PRODUCT CODE (test code = F5725B84 933-2) [facility] [id number] 17:15:10 Test Item Value Reference Range Interpretation [...] S NOT APPLICABLE FOR DIALYSIS PATIEN TS. Private Detective ID - ONYINYEOperator ID - ONYINYEOperator ID - ONYINYEOperator ID - ONYINYEOperator ID - ONYINYEOperator ID - ONYINYEOperator ID - ONYINYEOperator ID - ONYINYEOperator ID - ONYINYEOperator ID - ONYINYEOperator ID - ONYINYEOperator ID - ONYINYEOperator ID - ONYINYECBC W/PLT COUNT & AUTO [id number] 17:03:51 Test Item Value Reference Range Interpretation [...] PERCENT (BEAKER) (test code = 2801) CALCIUM, [id number] 16:56:18 Test Item Value Reference Range Interpretation Comments CALCIUM IONIZED (BEAKER) (test 0.95 mmol/L 1.12-1.27 L code = 698) PH, BLOOD (BEAKER) (test code = 7.52 1810) Clostridium difficile GDH [id number] 12:56:45 Test Item Value Reference Range Interpretation Comments C. Difficle Toxin Negative Negative (test code = 6635062800) C. Difficile GDH Positive Negative A C. difficil e Antigen (test code = present but toxin 7717545938) not detected. Indicates colonization wi th non-toxigenic [...] use. Lab Interpretation Abnormal (test code = 78038-6) [facility] [id number] 12:56:45 Test Item Value Reference Range Interpretation Comments C. Difficle Toxin Negative Negative (test code = 8103915830) C. Difficile GDH Positive Negative A C. difficil e Antigen (test code = present but toxin 2833559755) not detected. Indicates colonization wi th non-toxigenic [...] use. Lab Interpretation Abnormal (test code = 74257-7) [facility] [id number] 12:56:45 Test Item Value Reference Range Interpretation Comments C. Difficle Toxin Negative Negative (test code = 1560916089) C. Difficile GDH Positive Negative A C. difficil e Antigen (test code = present but toxin 7961137187) not detected. Indicates colonization wi th non-toxigenic [...] use. Lab Interpretation Abnormal (test code = 98297-3) [facility] [id number] 12:56:45 Test Item Value Reference Range Interpretation Comments C. Difficle Toxin Negative Negative (test code = 3579657262) C. Difficile GDH Positive Negative A C. difficil e Antigen (test code = present but toxin 2399126925) not detected. Indicates colonization wi th non-toxigenic [...] use. Lab Interpretation Abnormal (test code = 15758-0) [facility] [id number] 12:56:45 Test Item Value Reference Range Interpretation Comments C. Difficle Toxin Negative Negative (test code = ) C. Difficile GDH Positive Negative A C. difficil e Antigen (test code = present but toxin 1950652904) not detected. Indicates colonization wi th non-toxigenic [...] use. Lab Interpretation Abnormal (test code = 17265-3) [facility] DIFFICILE [facility] [id number] 12:56:45 Test Item Value Reference Range Interpretation [...] [facility] MicrobiologyLab prior to clinical use.[id number] 11:25:57 Test Item Value Reference Range Interpretation Comments PHOSPHORUS (BEAKER) 2.4 mg/dL 2.5-4.5 L Specimen moderately (test code = 604) hemolyzed Private Detective ID - LITOOperator ID - LITOOperator ID - LITOOperator ID - FREEDOM COMPREHENSIVE METABOLIC [id number] 06:12:13 Test Item Value Reference Range Interpretation [...] S NOT APPLICABLE FOR DIALYSIS PATIEN TS. Private Detective ID - ADMINOperator ID - ADMINOperator ID - ADMINOperator ID - ADMINOperator ID - ADMINOperator ID - ADMINOperator ID - ADMINOperator ID - ADMINOperator ID - ADMINOperator ID - ADMINOperator ID- ADMINOperator ID - ADMINOperator ID - ADMINOperator ID - ADMINOperator ID - ADMINOperator ID - ADMI [id number] 06:02:00 Test Item Value Reference Range Interpretation Comments MAGNESIUM (BEAKER) 1.8 mg/dL 1.5-3.0 Specimen moderately (test code = 627) hemolyzed Private Detective ID - ADMINOperator ID - ADMINOperator ID - ADMINOperator ID - ADMINCBC W/PLT COUNT & AUTO [id number] 05:41:57 Test Item Value Reference Range Interpretation [...] (BEAKER) (test code = 2801) BASIC METABOLIC [id number] 20:07:52 Test Item Value Reference Range Interpretation [...] S NOT APPLICABLE FOR DIALYSIS PATIEN TS. Private Detective ID - [id number] ID - [id number] ID - [id number] ID - [id number] ID - [id number] ID - [id number] ID - [id number] ID - [id number] ID - [id number] ID - [id number] ID - [id number] ID - [id number] ID - [id number] Echo W/Doppler(CW/PW/Color)2021-08-12 11:40:21Ejection FractionSLEH ECHO HEARTLAB [facility]2D Echo W/Doppler(CW/PW/Color)2021-08-12 11:40:21Ejection FractionSLEH ECHO HEARTLAB [facility] Echo W/Doppler(CW/PW/Color) 2021-08-12 11:40:21Ejection FractionSLEH ECHO HEARTLAB [facility] Echo W/Doppler(CW/PW/Color)2021-08-12 11:40:21Ejection FractionSLEH ECHO HEARTLAB [facility] Echo W/Doppler(CW/PW/Color)2021-08-12 11:40:21Ejection FractionSLE [facility] 06:15:26 Test Item Value Reference Range Interpretation Comments [facility] (test code = 1071.10 ng/mL 10.00-291.00 H 361) Private Detective ID - [id number] METABOLIC [id number] 04:03:51 Test Item Value Reference Range Interpretation [...] S NOT APPLICABLE FOR DIALYSIS PATIEN TS. Private Detective ID - [id number] ID - [id number] ID - [id number] ID - [id number] ID - [id number] ID - [id number] ID - [id number] ID - [id number] ID - [id number] ID - [id number] ID - [id number] ID - [id number] ID - [id number] ID - [id number] ID - [id number] ID - [id number] 03:37:52 Test Item Value Reference Range Interpretation Comments MAGNESIUM (BEAKER) (test code = 1.5 mg/dL 1.5-3.0 627) Private Detective ID - [id number] ID - [id number] ID - [id number] ID - [id number] W/PLT COUNT & AUTO [id number] 03:23:47 Test Item Value Reference Range Interpretation [...] 0-0 PERCENT (BEAKER) (test code = 2801) [id number] 20:33:51 Test Item Value Reference Range Interpretation Comments MAGNESIUM (BEAKER) 1.6 mg/dL 1.5-3.0 Specimen slightly (test code = 627) hemolyzed Private Detective ID - [id number] ID - [id number] ID - [id number] ID - [id number] METABOLIC [id number] 18:51:24 Test Item Value Reference Range Interpretation [...] S NOT APPLICABLE FOR DIALYSIS PATIEN TS. Private Detective ID - [id number] ID - [id number] ID - [id number] ID - [id number] ID - [id number] ID - [id number] ID - [id number] ID - [id number] ID - [id number] ID - [id number] ID - [id number] ID - [id number] ID - [id number], TIBC, % SAT. (WITHOUT FERRITIN)2021-08-11 12:03:57 Test Item Value Reference Range Interpretation Comments IRON (BEAKER) (test code = 547) 68.0 ug/dL 45.0-170.0 TOTAL IRON BINDING CAPACITY 66 ug/dL 250-550 L (BEAKER) (test code = 769) IRON % SATURATION (2) (BEAKER) 103 % 20-55 H (test code = 2590) Private Detective ID - [id number] ID - [id number] 11:00:01 Test Item Value Reference Range Interpretation Comments MAGNESIUM (BEAKER) 1.3 mg/dL 1.5-3.0 L Specimen slightly (test code = 627) hemolyzed Private Detective ID - [id number] METABOLIC [id number] 06:41:44 Test Item Value Reference Range Interpretation [...] S NOT APPLICABLE FOR DIALYSIS PATIEN TS. Private Detective ID - [id number] ID - [id number] ID - [id number] ID - [id number] ID - fznmqhrou269Ylgthksk ID - wwsectqiy662Xuvufyxm ID - ayejqsstj633Bepaprjn ID - ltqsdyzsa586Mikzihkm ID - lioomwzdf479Dqjktwpt ID - vvsvtmwhr422Wdgvfqqa ID - jfndjuzaw947Qjhzzsdy ID - [id number] ID - [id number] ID - loiojewfg116Wxatctni ID - [id number] ID -vvbikbnhb884SNETJ [id number] 06:41:32 Test Item Value Reference Range Interpretation [...] Borderline 130-159 High 160-189 Very High >=190 Private Detective ID - [id number] ID - aydiqodlu244Geuezmne ID - sdrfbrczd575Eedtptbt ID - emutsckpg873Lshojmao ID - lgsmnjivg807Zwyeoqnq ID - owggjppng722DSPMXTAHOO A1C 2021-08-11 06:37:45 Test Item Value Reference Range Interpretation Comments HEMOGLOBIN A1C (BEAKER) (test code = 4.7 % 4.3-6.1 368) Private Detective ID - [id number] W/PLT COUNT & AUTO [id number] 06:08:50 Test Item Value Reference Range Interpretation [...] (test code = 416) BASOPHILS ABSOLUTE COUNT ([facility]) 0.06 K/ L 0.00-0.20 (test code = 417) IMMATURE GRANULOCYTES-RELATIVE 1 % 0-0 H PERCENT (BEAKER) (test code = 2801) POCT-GLUCOSE [id number] 11:15:00 Test Item Value Reference Range Interpretation Comments POC-GLUCOSE METER 99 mg/dL 70-110 : TESTED A T [facility] [address] (BEAKER) (test code = [address]) [place] [address]: Private Detective/Techni daniel ID = [id number] for Leatha mataa, Raeann POCT-GLUCOSE [id number] 11:15:00 Test Item Value Reference Range Interpretation Comments POC-GLUCOSE METER 79 mg/dL 70-110 : Notified RN/MD: TESTED ([facility]) (test code = [address] [place] [address]: Private Detective/Techni daniel ID = [id number] for Smita Campuzano POCT-GLUCOSE [id number] 11:15:00 Test Item Value Reference Range Interpretation Comments POC-GLUCOSE METER 106 mg/dL 70-110 : [facility] T [facility] (test code [address] [facility], = 1538) [place] [address]: Private Detective/Techni daniel ID = [id number] for Valentina Piña POCT-GLUCOSE [id number] 11:15:00 Test Item Value Reference Range Interpretation Comments POC-GLUCOSE METER 82 mg/dL 70-110 : TESTED A T [facility] (BEAKER) (test [facility] = [facility] [facility] [place] [address]: Private Detective/Techni daniel ID = [id number] for Kuru alonzo, Raeann POCT-GLUCOSE [id number] 11:15:00 Test Item Value Reference Range Interpretation Comments POC-GLUCOSE METER 88 mg/dL 70-110 : TESTED A T [facility] [address] (BEAKER) (test code = [address]) [place] [address]: Private Detective/Techni daniel ID = [id number] for Kuru alonzo, Raeann POCT-GLUCOSE [id number] 11:15:00 Test Item Value Reference Range Interpretation Comments POC-GLUCOSE METER 83 mg/dL 70-110 : Notified RN/MD: TESTED (BEAKER) (test code = [address]) [address], [place] [id number]: Private Detective/Techni daniel ID = [id number] for Maria Teresa Charlton POCT-GLUCOSE [id number] 11:15:00 Test Item Value Reference Range Interpretation Comments POC-GLUCOSE METER 110 mg/dL 70-110 : TESTED A T [facility] [address] (BEAKER) (test code [address], = [address]) [place] [address]: Private Detective/Techni daniel ID = [id number] for Maria Teresa Charlton POCT-GLUCOSE [id number] 11:14:00 Test Item Value Reference Range Interpretation Comments POC-GLUCOSE METER 96 mg/dL 70-110 : TESTED A T [facility] [address] (BEAKER) (test code = [address]) [place] [address]: Private Detective/Techni daniel ID = [id number] for Ali, Yaw POCT-GLUCOSE [id number] 11:14:00 Test Item Value Reference Range Interpretation Comments POC-GLUCOSE METER 97 mg/dL 70-110 : TESTED A T [facility] [address] (BEAKER) (test code = [address]) [place] [address]: Private Detective/Techni daniel ID = [id number] for Ali, Yaw POCT-GLUCOSE [id number] 11:14:00 Test Item Value Reference Range Interpretation Comments POC-GLUCOSE METER 99 mg/dL 70-110 : TESTED A T [facility] [address] (BEAKER) (test code = [address]) [place] [address]: Private Detective/Techni daniel ID = [id number] for Jennifer Pete POCT-GLUCOSE [id number] 11:14:00 Test Item Value Reference Range Interpretation Comments POC-GLUCOSE METER 91 mg/dL 70-110 : TESTED A T [facility] [address] (BEAKER) (test code = [address]) [place] [address]: Private Detective/Techni daniel ID = [id number] for Nwad iufuJasperKim POCT-GLUCOSE [id number] 11:14:00 Test Item Value Reference Range Interpretation Comments POC-GLUCOSE METER 75 mg/dL 70-110 : TESTED A T [facility]17 (BEPARVIZ) (test code = [address], [address]) [facility] [address]: Private Detective/Techni daniel ID = [id number] for Estelle Serra SARS-COV2/RT-PCR ([facility])2020-08-10 16:15:00 Test Item Value Reference Range Interpretation Comments SARS-COV2/RT-PCR Negative Not Detected, Performanc e of the Xpert (test code = Negative, See Xpress [id number]) external report SARS-CoV-2/F oply/RSV test for linked test has only bee [...] sooner.Fact She et for Healthcare Prov iders: https://www.PayMins/ Documents/Xpert %20Xpress %68MNCT-OoO-5-F poly-RSV/30 2-4508%20Rev.%2 0B%20HCP% 20Fact%20Sheet. pdfFact Sheet for Healt hcare Patients: https://www.PayMins/ Documents/Xpert %20Xpress %54RTPY-FkT-2-F poly-RSV/30 2-4507%20Rev.%2 0B%20Pati ent%20Fact%20Sh eet.pdf SARS-COV-2 SLSL Performed at:[facility] PERFORMING LAB [place] [id number] (test code = Aron Rec[address] 3173245) [place], [place] [address] h: [phone] RAD, CHEST, 1 VIEW, NON [id number] 15:49:00Reason for exam:->New HemodialysisShould this be performed at the bedside?->Yes [facility] 1965 Sex: FFINAL REPORT CHEST AP PORTABLE SEMIERECT COMPARISON STUDY: 10/30/2018 History provided: Dialysis Radiographically normal-appearing heart and lungs. Tunneled dialysis catheter fromright jugular approach with catheter tip at the cavoatrial junction. Signed: Junito Mayberry MDReport Verified Date/Time: 08/10/2020 15:49:39 Reading Location: [facility] Radiology Reading Room HEPATITIS B CORE ANTIBODY, [id number] 11:01:00 Test Item Value Reference Range Interpretation Comments HEPATITIS B CORE TOTAL ANTIBODY Nonreactive Nonreactive (BEAKER) (test code = 497) Private Detective ID - BANDAR MCOMPREHENSIVE METABOLIC [id number] 05:59:00 Test Item Value Reference Range Interpretation [...] S NOT APPLICABLE FOR DIALYSIS PATIEN TS. Private Detective ID - LITOOperator ID - LITOOperator ID [...] (test code = 2801) HEPATITIS B SURFACE [id number] 17:24:00 Test Item Value Reference Range Interpretation Comments HEPATITIS B SURFACE ANTIGEN (2) Nonreactive Nonreactive (BEAKER) (test code = 2585) Private Detective ID - JUSTINANG, TUNNELED CATHETER [id number] 10:44:00Reason for Central Line/PICC?->Need for hemodialysis accessReason for exam:->[facility]emodialysis [facility] : 1965 Sex: [...] the patient's medical record by the nurse. Range Conservationist: Rigoberto Rey M.D. Bulk Delivery Driver: None. Approach: Right internal jugular vein Estimated blood loss: < 5 cc. Specimen: None. Fluoroscopy Time: 1 minute and 5 secondsDose (Ka,r): 4 mGy. Technique: Informed written consent wasobtained. Discussion of risks, benefits, and alternatives were [...] and scrub technologist. The skin was anesthetized with2% lidocaine.Ultrasound evaluation showed a patent and compressible right internal jugular vein, which was punctured under direct real-time ultrasound guidance with a micropuncture needle. An ultrasound image was saved to PACS. A 0.018 inch wire was placed through the needle into the right atrium. A 4French micropuncture sheath was placed and a 0.035 wire was advanced into the IVC. A subcutaneous tunnel was created in the right anterior chest wall by blunt dissection. A 19 cm tip to cuff 15.5 Togolese Duraflow 2 catheter was brought through the tunnel. The vessel tract was serially dilated. A peel-away sheath was placed in the right IJ vein and the catheter was advanced through the sheath, with itsdistal tip terminating in the superior right atrium. The peel-away sheath was removed. The ports were flushed and aspirated easily following placement. The catheter was sutured to the skin to secure its placement. The small jugular incision site was closed using Dermabond. Vital signs were monitored throughout the procedure by a nurse, and remained stable. The patient tolerated the procedure well andleft the department in the same condition. Results: Spot radiograph of the chest demonstrates the new dialysis catheter to lie in the expected position with its tip overlying the superior right atrium. Impression: Successful, uncomplicated placement of a right internal jugular tunneled dialysis catheter using sonographic and fluoroscopic guidance and conscious sedation. Signed: Rigoberto Rey MDReport Verified Date/Time: 08/09/2020 10:44:42 Reading Location: [facility] Radiology Reading Room BASIC METABOLIC [id number] 04:46:00 Test Item Value Reference Range Interpretation [...] S NOT APPLICABLE FOR DIALYSIS PATIEN TS. Private Detective ID - [id number] ID - ZMXK39Echdznfe ID - QZBX62Sufbbqbq ID - QEGG22Jxbzpamw ID - YXIT37Offkecyf ID - EGLZ03Zoncmvwb ID - QNEL49Merbvjqz ID - IXSJ75Cxicunvh ID - HOHD25Enyiitem ID - JDHE38Jcgihuwc ID - UQKL04Daidchbl ID - WWPE36Zafzcftp ID - NOEO34COZ W/PLT COUNT & AUTO [id number] 04:27:00 Test Item Value Reference Range Interpretation [...] PERCENT (BEAKER) (test code = 2801) POCT-GLUCOSE [id number] 06:14:00 Test Item Value Reference Range Interpretation Comments POC-GLUCOSE METER 76 mg/dL 70-110 : TESTED A T [facility] [address] (BEAKER) (test code = [address]) [place] [address]: Private Detective/Techni daniel ID = [id number] for Tashia Rodney HEMOGLOBIN [id number] 05:40:00 Test Item Value Reference Range Interpretation Comments HEMOGLOBIN A1C (BEAKER) (test code = 4.4 % 4.3-6.1 368) Private Detective ID - [id number]-HXTBDWV RPEBF1502-33-58 20:58:00 Test Item Value Reference Range Interpretation Comments POC-GLUCOSE METER 118 mg/dL 70-110 H : TESTED A T [facility] [address] (BEAKER) (test code [address], = 1538) [place] [address]: Private Detective/Techni daniel ID = [id number] for Tashia Rodney VANCOMYCIN LEVEL, [id number] 08:10:00 Test Item Value Reference Range Interpretation Comments VANCOMYCIN TROUGH (BEAKER) (test 17.0 ug/mL 10.0-20.0 code = 522) Private Detective ID - [id number] 05:26:00 Test Item Value Reference Range Interpretation [...] Borderline 130-159 High 160-189 Very High >=190 Private Detective ID - pdyc70Kjqphnsc ID - fual28Uemuwwve ID - [id number] METABOLIC [id number] 05:26:00 Test Item Value Reference Range Interpretation [...] S NOT APPLICABLE FOR DIALYSIS PATIEN TS. Private Detective ID - [id number] ID - yccn28Ypbtjzia ID - yrgx46Dqdshyaz ID - urgr38Zkzrnhdj ID - yiws99Risjhlts ID - hadv67Fhrhlwmf ID - smte00Elfkawys ID - quql68Lnavtixg ID - inej16Rcnstwrs ID - ynqa25AVHHFZZRO4598-58-69 05:18:00 Test Item Value Reference Range Interpretation Comments MAGNESIUM (BEAKER) (test code = 2.0 mg/dL 1.5-3.0 627) Private Detective ID - [id number] ID - oemv96Mjzjxrdv ID - akbg35Ibpclbol ID - zres04 BOZMFJXLWL6890-61-87 05:16:00 Test Item Value Reference Range Interpretation Comments PHOSPHORUS (BEAKER) (test code = 4.8 mg/dL 2.5-4.5 H 604) Private Detective ID - [id number] W/PLT COUNT & AUTO [id number] 05:10:00 Test Item Value Reference Range Interpretation [...] PERCENT (BEAKER) (test code = 2801) PROTHROMBIN TIME/[id number] 04:59:00 Test Item Value Reference Range Interpretation Comments PROTIME (BEAKER) 13.2 seconds 9.3-12.0 H Final Infor mation (test code = 759) (Auto Outp ut) INR (BEAKER) (test 1.20 See_Comment Final Inf ormation code = 370) (Auto Output) [Automated mess age] The system [employer]ph[employer] generated this result transmitted ref erence range: <=5.90. The reference range was not used to int erpret this result as normal/abnormal . RECOMMENDED COUMADIN/WARFARIN INR THERAPY RANGESSTANDARD DOSE: 2.0 - 3.0 Includes: PROPHYLAXIS for venous thrombosis, systemic embolization; TREATMENT for venous thrombosis and/or pulmonary embolus.HIGH RISK: Target INR is 2.5-3.5 for patients with mechanical heart valves.HEMOGLOBIN [id number] 04:50:00 Test Item Value Reference Range Interpretation Comments HEMOGLOBIN A1C (BEAKER) (test code = 4.5 % 4.3-6.1 368) Private Detective ID - [id number] FLUID CULTURE + GRAM [id number] 12:18:00 Test Item Value Reference Range Interpretation Comments CULTURE (BEAKER) (test No growth code = 1095) GRAM STAIN RESULT <1+ White blood cells (BEAKER) (test code = seen 1123) GRAM STAIN RESULT No organisms seen (BEAKER) (test code = 59338) BLOOD [id number] 08:01:00 Test Item Value Reference Range Interpretation Comments CULTURE (BEAKER) (test No growth in 5 days code = 1095) BLOOD [id number] 08:01:00 Test Item Value Reference Range Interpretation Comments CULTURE (BEAKER) (test No growth in 5 days code = 1095) POCT-GLUCOSE [id number] 14:58:00 Test Item Value Reference Range Interpretation Comments POC-GLUCOSE METER 101 mg/dL 70-110 TESTED AT [place] [address] (BEAKER) (test code = [address] [place] [address]) [address] HEMOGLOBIN AND [id number] 12:19:00 Test Item Value Reference Range Interpretation Comments HEMOGLOBIN (BEAKER) (test code = 7.5 GM/DL 11.2-15.7 L 410) HEMATOCRIT (BEAKER) (test code = 23.1 % 34.1-44.9 L 411) POCT-GLUCOSE [id number] 08:37:00 Test Item Value Reference Range Interpretation Comments POC-GLUCOSE METER 168 mg/dL 70-110 H TESTED AT [place] [id number] (BEAKER) (test code = [facility] [place] 1538) [address] LACTIC ACID, [id number] 07:04:00 Test Item Value Reference Range Interpretation Comments LACTATE BLOOD VENOUS 1.9 mmol/L 0.5-2.2 Specime n slightly (2) ([facility]) (test hemolyzed code = 2872) POCT-GLUCOSE [id number] 21:25:00 Test Item Value Reference Range Interpretation Comments POC-GLUCOSE METER 102 mg/dL 70-110 TESTED AT [place] [address] ([facility]) (test code = [facility] [place] 1538) [id number] POCT-GLUCOSE [id number] 18:50:00 Test Item Value Reference Range Interpretation Comments POC-GLUCOSE METER 91 mg/dL 70-110 TESTED AT [place] [address] ([facility]) (test code = [facility] [place] [address]38) POCT-GLUCOSE [id number] 13:23:00 Test Item Value Reference Range Interpretation Comments POC-GLUCOSE METER 114 mg/dL 70-110 H TESTED AT [place] [address] ([facility]) (test code = [facility] [place] 1538) [address] POCT-GLUCOSE [id number] 09:11:00 Test Item Value Reference Range Interpretation Comments POC-GLUCOSE METER 131 mg/dL 70-110 H TESTED AT [place] [address] ([facility]) (test code = [facility] [place] 1538) [address] BASIC METABOLIC [id number] 06:45:00 Test Item Value Reference Range Interpretation [...] S NOT APPLICABLE FOR DIALYSIS PATIEN TS. [id number] 06:40:00 Test Item Value Reference Range Interpretation Comments PHOSPHORUS (BEAKER) (test code = 6.5 mg/dL 2.3-4.7 H 604) [id number] 06:40:00 Test Item Value Reference Range Interpretation Comments MAGNESIUM (BEAKER) (test code = 1.9 mg/dL 1.6-2.6 627) LACTIC ACID, [id number] 06:12:00 Test Item Value Reference Range Interpretation Comments LACTATE BLOOD VENOUS (2) (BEAKER) 2.3 mmol/L 0.5-2.2 H (test code = 2872) CBC W/PLT COUNT & AUTO [id number] 06:05:00 Test Item Value Reference Range Interpretation [...] PERCENT (BEAKER) (test code = 2801) POCT-GLUCOSE [id number] 21:04:00 Test Item Value Reference Range Interpretation Comments POC-GLUCOSE METER 135 mg/dL 70-110 H TESTED AT [facility] 67 [facility] (test code = [facility] [place] 1538) [address] [id number] 17:08:00 Test Item Value Reference Range Interpretation Comments FERRITIN (BEAKER) (test code = 1367 ng/mL 5-275 H 361) POCT-GLUCOSE [id number] 17:00:00 Test Item Value Reference Range Interpretation Comments POC-GLUCOSE METER 137 mg/dL 70-110 H TESTED AT [facility] 6720 (BEAKER) (test code = [facility] [place] 1538) [address] IRON, TIBC, % SAT. (WITHOUT FERRITIN)[id number] 16:48:00 Test Item Value Reference Range Interpretation Comments IRON (BEAKER) (test code = 547) 53.0 ug/dL 40.0-160.0 TOTAL IRON BINDING CAPACITY 135 ug/dL 250-450 L (BEAKER) (test code = 769) IRON % SATURATION (2) (BEAKER) 39 % 20-55 (test code = 2590) RETICULOCYTE [id number] 16:47:00 Test Item Value Reference Range Interpretation Comments RETICULOCYTE COUNT PCT (BEAKER) (test 2.1 % 0.5-1.7 H code = 575) LACTIC ACID, [id number] 14:17:00 Test Item Value Reference Range Interpretation Comments LACTATE BLOOD VENOUS (2) (BEAKER) 1.7 mmol/L 0.5-2.2 (test code = 2872) HEMOGLOBIN AND [id number] 14:03:00 Test Item Value Reference Range Interpretation Comments HEMOGLOBIN (BEAKER) (test code = 6.4 GM/DL 11.2-15.7 L 410) HEMATOCRIT (BEAKER) (test code = 20.2 % 34.1-44.9 L 411) POCT-GLUCOSE [id number] 11:11:00 Test Item Value Reference Range Interpretation Comments POC-GLUCOSE METER 143 mg/dL 70-110 H TESTED AT [facility] 6720 (BEAKER) (test code = [place] 1538) [address] [id number] 03:47:00 Test Item Value Reference Range Interpretation Comments PROCALCITONIN (BEAKER) (test code 0.76 ng/mL <0.05 H = 3036) SEPSIS RISK (ng/mL)Low: 0.05-0.50Intermediate: 0.51-2.00High: >=2.01 [id number] 02:58:00 Test Item Value Reference Range Interpretation Comments PHOSPHORUS (BEAKER) (test code = 6.8 mg/dL 2.3-4.7 H 604) [id number] 02:58:00 Test Item Value Reference Range Interpretation Comments MAGNESIUM (BEAKER) (test code = 1.9 mg/dL 1.6-2.6 627) LACTIC ACID, [id number] 02:53:00 Test Item Value Reference Range Interpretation Comments LACTATE BLOOD VENOUS 1.6 mmol/L 0.5-2.2 Specime n slightly (2) (BEAKER) (test hemolyzed code = 2872) RAD, CHEST, 1 VIEW, NON [id number] 02:31:00Reason for exam:->altered mental statusShould this be [...] cardiopulmonary abnormality. Signed: Bernardo Pleitezzulma Verified Date/Time: 10/30/2018 02:31:36 OXYGEN SATURATION, [id number] 02:25:00 Test Item Value Reference Range Interpretation Comments O2 SATURATION (MEASURED) (BEAKER) 75.1 % (test code = 1455) If patient has internal jugular ( IJ) or subclavian central line or PICC line. Draw from distal port. Label as central venous oxygen.CBC W/PLT COUNT & AUTO [id number] 00:56:00 Test Item Value Reference Range Interpretation [...] (BEAKER) (test code = 2801) COMPREHENSIVE METABOLIC [id number] 00:46:00 Test Item Value Reference Range Interpretation [...] APPLICABLE FOR DIALYSIS PATIEN TS. LACTIC ACID, [id number] 00:27:00 Test Item Value Reference Range Interpretation Comments LACTATE BLOOD VENOUS (2) (BEAKER) 1.9 mmol/L 0.5-2.2 (test code = 2872) BLOOD GAS, [id number] 00:24:00 Test Item Value Reference Range Interpretation [...] (test code = 1819) 21.0 % POCT-GLUCOSE [id number] 23:54:00 Test Item Value Reference Range Interpretation Comments POC-GLUCOSE METER 249 mg/dL 70-110 H TESTED AT [facility] 6720 (BEAKER) (test code = [place] 7842) [address] BODY FLUID CELL COUNT WITH [id number] 21:57:00 Test Item Value Reference Range Interpretation [...] (test code = 2873) C. DIFFICILE GDH [id number] 10:06:00 Test Item Value Reference Range Interpretation Comments CDT TOXIN (test code Positive Negative A = [id number]) CDT GDH ANTIGEN Positive Negative A Confirms Beti stridium (test code = difficile-assoc iated [id number]) infection.First line therapy - oral Vancomycin. Con tinue enteric isolati on until 72 hours after treatment is discontinued and symptoms have r esolved. Testing performed by [employer] Rapid Cassette Assay. For GDH, published sensitivity of the assay is 98.7% compared to cytotoxicity testing. For Toxin AB, published sensitivity is 87.8% and specificity 99.4% compared to cytotoxicity testing.Verification of kit performance was done by the [facility] prior to clinical use.POCT-GLUCOSE [id number] 09:14:00 Test Item Value Reference Range Interpretation Comments POC-GLUCOSE METER 109 mg/dL 70-110 TESTED AT [facility] 6720 ([facility]) (test code = [place] 1538) [address] [id number] 08:46:00 Test Item Value Reference Range Interpretation Comments PROCALCITONIN (AKER) (test code 0.67 ng/mL <0.05 H = 3036) SEPSIS RISK (ng/mL)Low: 0.05-0.50Intermediate: 0.51-2.00High: >=2.01CBC W/PLT COUNT & AUTO [id number] 08:36:00 Test Item Value Reference Range Interpretation [...] PERCENT (BEAKER) (test code = 2801) VITAMIN [id number] 07:12:00 Test Item Value Reference Range Interpretation Comments VITAMIN B12 (BEAKER) (test code = 680 pg/mL 213-816 774) TSH/FREE T4 IF [id number] 07:12:00 Test Item Value Reference Range Interpretation Comments THYROID STIMULATING HORMONE 0.94 uIU/mL 0.35-4.94 (BEAKER) (test code = 772) OSMOLALITY, [id number] 07:06:00 Test Item Value Reference Range Interpretation Comments OSMOLALITY, SERUM (BEAKER) (test 296 mOsm/kg 275-295 H code = 615) BASIC METABOLIC [id number] 06:11:00 Test Item Value Reference Range Interpretation [...] S NOT APPLICABLE FOR DIALYSIS PATIEN TS. [id number] 06:05:00 Test Item Value Reference Range Interpretation Comments PHOSPHORUS (BEAKER) (test code = 7.4 mg/dL 2.3-4.7 H 604) [id number] 06:05:00 Test Item Value Reference Range Interpretation Comments MAGNESIUM (BEAKER) (test code = 2.0 mg/dL 1.6-2.6 627) HEPATIC FUNCTION [id number] 06:05:00 Test Item Value Reference Range Interpretation [...] code = 39 U/L 6-55 347) C-REACTIVE [id number] 06:05:00 Test Item Value Reference Range Interpretation Comments C-REACTIVE PROTEIN (BEAKER) (test 1.72 mg/dL 0.00-0.50 H code = 676) [id number] 05:56:00 Test Item Value Reference Range Interpretation Comments AMMONIA (BEAKER) (test code = 348) 16 mol/L 18-72 L RAD, CHEST, 1 VIEW, NON [id number] 21:14:00Reason for exam:->chest painIs the patient ?->UnknownShould [...] No acute cardiopulmonary abnormality. Signed: Bernardo Pleitez MDRort Verified Date/Time: 10/28/2018 21:14:02 URINALYSIS [id number] 20:54:00 Test Item Value Reference Range Interpretation Comments RBC UA (BEAKER) (test code = 519) 1 /HPF WBC UA (BEAKER) (test code = 520) 10 /HPF SQUAMOUS EPITHELIAL (BEAKER) (test 5 /HPF code = 516) HYALINE CASTS (BEAKER) (test code = 2 /LPF 514) URINALYSIS WITH MICROSCOPIC IF [id number] 20:52:00 Test Item Value Reference Range Interpretation [...] code = 463) SOURCE(BEAKER) (test code = 7575) BASIC METABOLIC [id number] 20:32:00 Test Item Value Reference Range Interpretation [...] S NOT APPLICABLE FOR DIALYSIS PATIEN TS. [id number] 20:29:00 Test Item Value Reference Range Interpretation Comments MAGNESIUM (BEAKER) (test code = 2.0 mg/dL 1.6-2.6 627) [id number] 20:29:00 Test Item Value Reference Range Interpretation Comments LIPASE (BEAKER) (test code = 749) 65 U/L 8-78 [id number] 20:10:00 Test Item Value Reference Range Interpretation [...] mechanical heart valves.CBC W/PLT COUNT & AUTO [id number] 20:05:00 Test Item Value Reference Range Interpretation [...] (test code = 2801) CT, BRAIN, WITHOUT [id number] 19:38:00Reason for exam:->ALTERED MENTAL STATUSReason for exam:->GENERALIZED [...] MDReport Verified Date/Time: 10/28/2018 19:38:10 Reading Location: [facility] C013V Neuro Reading Room [facility] signed by: RUTH BENÍTEZ MD on 10/28/2018 07:38 PMHEMOGLOBIN [id number] 07:56:00 Test Item Value Reference Range Interpretation Comments HEMOGLOBIN A1C (BEAKER) (test code = 6.1 % 4.3-6.1 368) VITAMIN [id number] 06:59:00 Test Item Value Reference Range Interpretation Comments VITAMIN B12 (BEAKER) (test code = 483 pg/mL 213-816 774) TSH/FREE T4 IF [id number] 06:59:00 Test Item Value Reference Range Interpretation Comments THYROID STIMULATING HORMONE 1.74 uIU/mL 0.35-4.94 (BEAKER) (test code = 772) BASIC METABOLIC [id number] 06:04:00 Test Item Value Reference Range Interpretation [...] NOT APPLICABLE FOR DIALYSIS PATIEN TS. LIPID [id number] 05:54:00 Test Item Value Reference Range Interpretation [...] Very High >=190CBC W/PLT COUNT & AUTO [id number] 04:52:00 Test Item Value Reference Range Interpretation [...] (test code = 2801) MR, BRAIN, WITHOUT [id number] 04:11:00FINAL REPORT MRI Brain without contrast Clinical History: TIA/Stroke Technique:MRI of the brain utilizing axial T2, FLAIR, GRE, DWI; sagittal and coronal T1-weighted images. MRA of the head utilizing 3-D nmsz-jk-qcqflv technique, with 3-D reconstructions. MRA of the neck utilizing 2-D and 3-D mjha-nf-abcjdz technique, with 3-D reconstructions. Comparisons: None Findings:MRI [...] MRA head: No evidence for a major [place] proximal branch vessel occlusion. MRA neck: No evidence of hemodynamically significant stenosis in the cervical carotid or vertebral arteries by NASCET criteria. Signed: Bernardo Pleitez MDReportVerified Date/Time: 08/19/2018 04:11:07 Reading Location: [address] Transitional Reading Room MR, MRA, BRAIN, WITHOUT [id number] 04:11:00FINAL REPORT MRI Brain without contrast Clinical History: TIA/Stroke Technique:MRI of the brain utilizing axial T2, FLAIR, GRE, DWI; sagittal and coronal T1-weighted images. MRA of the head utilizing 3-D likr-ga-ipdsnc technique, with 3-D reconstructions. MRA of the neck utilizing 2-D and 3-D siki-ae-uopycy technique, with 3-D reconstructions. Comparisons: None Findings:MRI [...] MRA head: No evidence for a major [place] proximal branch vessel occlusion. MRA neck: No evidence of hemodynamically significant stenosis in the cervical carotid or vertebral arteries by NASCET criteria. Signed: Bernardo Pleitez MDReportVerified Date/Time: 08/19/2018 04:11:07 Reading Location: [address] Transitional Reading Room MR, MRA, NECK, WITHOUT IV [id number] 04:11:00Reason for exam:->Stroke/TIAFINAL REPORT MRI Brain without contrast Clinical History: TIA/Stroke Technique:MRI of the brain utilizing axial T2, FLAIR, GRE, DWI; sagittal and coronal T1-weighted images. MRA of the head utilizing 3-D frhu-eq-qxdakq technique, with 3-D reconstructions. MRA of the neck utilizing 2- D and 3-D wgpj-wu-skgnsi technique, with 3-D reconstructions. Comparisons: None Findings:MRI [...] MRA head: No evidence for a major [place] proximal branch vessel occlusion. MRA neck: No evidence of hemodynamically significant stenosis in the cervical carotid or vertebral arteries by NASCET criteria. Signed: Bernardo Pleitez MDReportVerified Date/Time: 08/19/2018 04:11:07 Reading Location: [address] Transitional Reading Room POCT-GLUCOSE [id number] 21:55:00 Test Item Value Reference Range Interpretation Comments POC-GLUCOSE METER 115 mg/dL 70-110 H TESTED AT [facility] 6720 ([facility]) (test code = [place] 1538) [address] POCT-GLUCOSE [id number] 18:29:00 Test Item Value Reference Range Interpretation Comments POC-GLUCOSE METER 93 mg/dL 70-110 TESTED AT [place] [address] ([facility]) (test code = ANIL Brown [facility] [address] 15[address]) CT, CTA [id number] 10:10:00Reason for Exam:->assess iliac vessels, pre kidney transplantAddendum BeginsREPORT STATUS:A Addendum: I agree with the previously described non vascular findings. Signed: Cristopher Fitzpatrick MDReport Verified Date/Time: 06/27/2018 10:10:18 Reading Location: [place] [address] Angio Body Reading RoomAddendum EndsFINAL REPORT CT angiography of the abdominal aorta and pelvic arteries, 25-Jun-18 INDICATION: This is a 53 year old female with end-stage renal disease, presents for pretransplant assessment. This study is performed in anattempt to avoid an invasive procedure. TECHNIQUE: Spiral acquisition before and during intravenous contrast administration using a Tink multidetector CT scanner. Images were obtained before [...] except for minimal calcific atherosclerosis identified proximally. [employer] [facility] dimensions of the left and the right external iliac arteries are 6 and 6 mm, respectively. Similarly, the associated pelvic veins are patent with no venous thrombosis identified. [place] [facility] dimensions of the left and the right [...] no arterial stenosis or venous thrombosis identified. [place] [employer] [facility] dimensions of the left and the right external iliac arteries and veins are as described above. 2. Widely patent mesenteric arteries. Patent renal arteries. 3. Other findings as described above. 4. An addendum will be dictated regarding the non-vascular findings by the Promotion Producer Radiologist. Signed: Samson Mcgill MDReport Verified Date/Time: 06/25/2018 09:45:12 Reading Location: [place] [address] Cardiology MRI OCCULT BLOOD, [id number] 00:49:00 Test Item Value Reference Range Interpretation Comments FECAL OCCULT BLOOD (BEAKER) (test Negative Negative code = 618) U/S, ABDOMINAL, [id number] 13:53:00Reason for Exam:->pre transplant evaluationFINAL REPORT Abdominal [...] MDReport Verified Date/Time: 03/01/2018 13:53:56 Reading Location: [facility] P006J Ultrasound Reading Room OCCULT BLOOD, [id number] 11:11:00 Test Item Value Reference Range Interpretation Comments FECAL OCCULT BLOOD (BEAKER) (test Negative Negative code = 618) [id number] 10:23:00 Test Item Value Reference Range Interpretation Comments PHOSPHORUS (BEAKER) (test code = 3.9 mg/dL 2.3-4.7 604) PROTHROMBIN [id number] 10:21:00 Test Item Value Reference Range Interpretation Comments PROTIME (BEAKER) (test code = 13.2 seconds 11.7-14.7 759) INR (BEAKER) (test code = 370) 1.0 <=5.9 RECOMMENDED COUMADIN/WARFARIN INR THERAPY RANGESSTANDARD DOSE: 2.0 - 3.0 Includes: PROPHYLAXIS for venous thrombosis, systemic embolization; TREATMENT for venous thrombosis and/or pulmonary embolus.HIGH RISK: Target INR is 2.5-3.5 for patients with mechanical heart valves.URINE [id number] 10:03:00 Test Item Value Reference Range Interpretation Comments CULTURE (BEAKER) (test 40-49,000 col/mL skin code = 1095) johnny CYTOMEGALOVIRUS ANTIBODY, [id number] 10:10:00 Test Item Value Reference Range Interpretation Comments CYTOMEGALOVIRUS, IGG (BEAKER) Positive Negative, Equivocal A (test code = 3429) CMV IgG Result Interpretation: </= 0.8 Al Negative 0.9-1.0 Al Equivocal >/=1.1 Al PositiveCYTOMEGALOVIRUS ANTIBODY, [id number] 10:10:00 Test Item Value Reference Range Interpretation Comments CYTOMEGALOVIRUS IGM ANTIBODY Positive Negative, Equivocal A (BEAKER) (test code = 3437) CMV IgM Result Interpretation: </= 0.8 Al Negative 0.9-1.0 Al Equivocal >/= 1.1 Al PositiveEBV ANTIBODY, [id number] 10:10:00 Test Item Value Reference Range Interpretation Comments ASHELY JENNINGS VIRAL CAPSID Positive Negative, Equivocal A ANTIGEN IGG (BEAKER) (test code = 3415) Ashely Jennings Viral Capsid Antigen IgG Result Interpretation: </= 0.8 Al Negative 0.9-1.0 Al Equivocal >/= 1.1 Al PositiveEBV ANTIBODY, [id number] 10:10:00 Test Item Value Reference Range Interpretation Comments ASHELY JENNINGS VIRAL CAPSID Negative Negative, Equivocal ANTIGEN IGM (BEAKER) (test code = 3418) Ashely Jennings Viral Capsid Antigen IgM Result Interpretation: </= 0.8 Al Negative 0.9-1.0 Al Equivocal >/= 1.1 Al PositiveVARICELLA ZOSTER ANTIBODY, [id number] 10:09:00 Test Item Value Reference Range Interpretation Comments VARICELLA ZOSTER IGG (AL) (BEAKER) > (test code = 3197) VARICELLA ZOSTER RESULT INTERPRETATIONS: <=0.8 Al Nonreactive: Presumed non- immune to VZV 0.9-1.0Al Equivocal >=1.1 Al Reactive: Presumed immune to VZV [id number] 07:38:00 Test Item Value Reference Range Interpretation Comments RPR SCREEN (BEAKER) (test code = Nonreactive Nonreactive 420) CBC W/PLT COUNT & AUTO [id number] 14:38:00 Test Item Value Reference Range Interpretation [...] (test code = 2801) RAD, CHEST, 2 [id number] 12:48:00Reason for Exam:->pre transplant evaluationFINAL REPORT PA and Lateral views of the chest dated 01/15/2018 Clinical information: pre transplant evaluation Comment: Heart is normal in size. Pulmonary vasculature is unremarkable. Lungs are clear. No pulmonary infiltrate or pleural effusion is present. Impression: No active ca rdiopulmonary disease. Signed: Daiana Anaya Verified Date/Time: 01/15/2018 12:48:30 Reading Location: [address] Radiology Reading Room HEMOGLOBIN [id number] 11:27:00 Test Item Value Reference Range Interpretation Comments HEMOGLOBIN A1C (BEAKER) (test code = 5.6 % 4.3-6.1 368) URINALYSIS W/ [id number] 11:23:00 Test Item Value Reference Range Interpretation [...] = 1585) Rare SOURCE(BEAKER) (test code = 9139) COMPREHENSIVE METABOLIC [id number] 10:41:00 Test Item Value Reference Range Interpretation [...] NOT APPLICABLE FOR DIALYSIS PATIEN TS. URIC [id number] 10:04:00 Test Item Value Reference Range Interpretation [...] H code = 635) HEPATITIS B SURFACE [id number] 10:03:00 Test Item Value Reference Range Interpretation Comments HEPATITIS B SURFACE ANTIGEN (2) Nonreactive Nonreactive (BEAKER) (test code = 2585) HEPATITIS B SURFACE [id number] 10:03:00 Test Item Value Reference Range Interpretation Comments HEPATITIS B SURFACE ANTIBODY 69.3 mIU/mL <8.0 H (BEAKER) (test code = 647) HEPATITIS B CORE ANTIBODY, [id number] 10:03:00 Test Item Value Reference Range Interpretation Comments HEPATITIS B CORE IGM ANTIBODY Nonreactive Nonreactive (BEAKER) (test code = 645) HEPATITIS C [id number] 10:03:00 Test Item Value Reference Range Interpretation Comments HEPATITIS C ANTIBODY (BEAKER) Nonreactive Nonreactive (test code = 367) HIV-1 ANTIGEN WITH HIV-1/2 [id number] 10:03:00 Test Item Value Reference Range Interpretation Comments HIV-1 ANTIGEN WITH HIV 1\T\2 Nonreactive Nonreactive ANTIBODY (2) (BEAKER) (test code = 2586) PTH, [id number] 09:45:00 Test Item Value Reference Range Interpretation Comments PARATHYROID HORMONE INTACT 308.0 pg/mL 8.5-72.5 H (BEAKER) (test code = 577) [id number] 09:31:00 Test Item Value Reference Range Interpretation [...] 2.5-3.5 for patients with mechanical heart valves. History and Physical Notes Date/Time Note Provider Source 2022-03-02 19:05:00-00:00 Suhas Block MD: [facility]: History and PhysicalAuthored Date: [id number] and Physical Primary Team Name:Team Contact Info:PCP Contact info:Family contact info: Code Status: None Specified=FULL CODE Chief Complaint: Pt called for Left side weakness that she woke up with, Patient reports that she was fine yesterday after dialysis at 1800. Last seen normal- 02/27/2022 1800. PMH: ERSD HTN History of Present Illness: 56 y/o F with a history of CVA, ESRD on HD, anemia, anxiety, DM II, and Parkinson's seizures, presents to the ED for evaluation of L sided weakness onset today. Patient was brought in by EMS for constant Left UE and Left LE weakness. Patient is normally ambulatory with a walker. Patient was last seen normal 02/27/2022 around 6pm after dialysis. Patient has had a prior CVA and EMS is unsure if patient has any L sided deficits from prior CVA. Patient is currently on Eliquis. The patient will be admitted to the hospital for further work-up and management. Review of Systems: 12 points ROS done and essentially negative except for HPI. Problem List/Past Medical History: Ongoing No qualifying data Social History: Electronic Cigarette/Vaping Electronic Cigarette Use: Never. Tobacco Use: Never smoker. Tobacco smoke exposure: None. Did the Patient Smoke Cigarettes Anytime During the Last 365 Days? No. Cessation Counseling Provided? No. Allergies: No Known Medication Allergies Home Medications: No active home medications Physical Exam: Vitals and Measurements T: 98.6 F (Oral) HR: 69 (Apical) RR: 13 BP: 140/110 SpO2: 94% WT: 62.727 kg BMI: 24.5 General: AAO x 3, No acute distressHEENT: Normocephalic, AtraumaticNeck: Supple, No JVDLungs: CTA BL, Respiratory effort non-laboredCVS: S1 + S2, RRR, No murmurAbd: BS +, Soft, Non-tenderExt: No external deformity, Full ROMNeuro: AAO x 3, No gross neurological deficit, Left sided weaknessSkin: No rash, No jaundicePsychiatric: Calm and cooperative Pertinent Labs: Test Name Test Result Date/Time Sodium Lvl 135 mEq/L 02/28/2022 12:44 PRIVATE DETECTIVE Potassium Lvl 4.3 mEq/L 02/28/2022 12:44 PRIVATE DETECTIVE Chloride Lvl 98 mEq/L 02/28/2022 12:44 PRIVATE DETECTIVE CO2 29 mEq/L 02/28/2022 12:44 PRIVATE DETECTIVE AGAP 12.3 mEq/L 02/28/2022 12:44 PRIVATE DETECTIVE Creatinine Lvl 6.77 mg/dL (High) 02/28/2022 12:44 PRIVATE DETECTIVE eGFR 7 mL/min/1.73m2 02/28/2022 12:44 PRIVATE DETECTIVE BUN 50 mg/dL (High) 02/28/2022 12:44 PRIVATE DETECTIVE B/C Ratio 7 02/28/2022 12:44 PRIVATE DETECTIVE Glucose Lvl 88 mg/dL 02/28/2022 12:44 PRIVATE DETECTIVE Total Protein 6.8 g/dL 02/28/2022 12:44 PRIVATE DETECTIVE Albumin Lvl 2.6 g/dL (Low) 02/28/2022 12:44 PRIVATE DETECTIVE Globulin 4.2 g/dL 02/28/2022 12:44 PRIVATE DETECTIVE A/G Ratio 0.6 (Low) 02/28/2022 12:44 PRIVATE DETECTIVE Calcium Lvl 8.9 mg/dL 02/28/2022 12:44 PRIVATE DETECTIVE ALT AST 10 unit/L 02/28/2022 12:44 PRIVATE DETECTIVE Alk Phos 129 unit/L 02/28/2022 12:44 PRIVATE DETECTIVE Bili Total 0.4 mg/dL 02/28/2022 12:44 PRIVATE DETECTIVE Total CK 54 unit/L 02/28/2022 12:44 PRIVATE DETECTIVE WBC 5.0 K/CMM 02/28/2022 12:44 PRIVATE DETECTIVE RBC 3.28 M/CMM (Low) 02/28/2022 12:44 PRIVATE DETECTIVE Hgb 11.3 g/dL (Low) 02/28/2022 12:44 PRIVATE DETECTIVE Hct 34.1 % (Low) 02/28/2022 12:44 PRIVATE DETECTIVE MCV 104.0 fL (High) 02/28/2022 12:44 PRIVATE DETECTIVE MCH 34.4 pg (High) 02/28/2022 12:44 PRIVATE DETECTIVE MCHC 33.1 g/dL 02/28/2022 12:44 PRIVATE DETECTIVE RDW 17.9 % (High) 02/28/2022 12:44 PRIVATE DETECTIVE MPV 8.1 fL 02/28/2022 12:44 PRIVATE DETECTIVE Platelet 302 K/CMM 02/28/2022 12:44 PRIVATE DETECTIVE Segs 57.6 % 02/28/2022 12:44 PRIVATE DETECTIVE Lymphocytes 33.5 % 02/28/2022 12:44 PRIVATE DETECTIVE Monocytes 6.3 % 02/28/2022 12:44 PRIVATE DETECTIVE Eosinophils 2.0 % 02/28/2022 12:44 PRIVATE DETECTIVE Basophils 0.6 % 02/28/2022 12:44 PRIVATE DETECTIVE Neutrophils # 2.9 K/CMM 02/28/2022 12:44 PRIVATE DETECTIVE Lymphocytes # 1.7 K/CMM 02/28/2022 12:44 PRIVATE DETECTIVE Monocytes # 0.3 K/CMM 02/28/2022 12:44 PRIVATE DETECTIVE Eosinophils # 0.1 K/CMM 02/28/2022 12:44 PRIVATE DETECTIVE PT 14.5 seconds 02/28/2022 12:44 PRIVATE DETECTIVE INR 1.14 02/28/2022 12:44 PRIVATE DETECTIVE PTT 36.9 seconds (High) 02/28/2022 12:44 PRIVATE DETECTIVE Coronavirus (COVID-19) CHERIE Not Detected 02/28/2022 12:44 PRIVATE DETECTIVE Pertinent Imaging: Brain Stroke wo contrast CT 02/28/22 12:49:55IMPRESSION:1. No acute intracranial abnormalities are visible.2. Chronic lacunar infarcts of the bilateral basal ganglia are noted. ASSESSMENT:ASPECTS ([place] Stroke Program Early CT Score) is 10. Matt Kohli MD On 02/28/2022 12:48:58; [id number] Signed By: Matt Kohli MD 02/28/22 12:53:32Radiation Dose CTDIVOL = 0 (mGy): DLP = 1045.5 (mGy-cm) ADDENDUM:The call to the ordering clinician was initiated on 02/28/2022 at 1248 hours. The findings were discussed with Dr. Whitt on 02/28/2022 at 1252 hours. Matt Kohli MD On 02/28/2022 12:53:06 CTA NECK:1. No occlusion or stenosis of the bilateral extracranial internal carotidarteries.2. The bilateral vertebral arteries are patent. CTA BRAIN:3. No occlusion or significant stenosis of the [place].4. No cerebral aneurysms are identified. REFERENCES:NASCET CRITERIA. The degree of stenosis in the cervical segment of the internal carotid artery is based on NASCET criteria. Normal is no stenosis. Mild is less than 50% stenosis. Moderate is 50-69% stenosis. Severe is 70% to 99% stenosis. Total occlusion is no detectable patent lumen. Matt Kohli MD On 02/28/2022 12:57:48 Chest 1view DX 02/28/22 13:31:09IMPRESSION:No acute cardiopulmonary findings. Nicolasa Spicer MD On 02/28/2022 13:30:43 Assessment/Plan: Neurologic deficit due to acute ischemic stroke (I63.9) Ordered: Admit/Condition, 02/28/22 15:08:00 PRIVATE DETECTIVE, Status: Out Patient with Observation Services, Telemetry Capable Location, Expected LOS: 1 Midnight, Suhas Block MD, Admit MD Review/Approve Yes, Isolation: No Isolation, Neurologic deficit due to acute ischemic stroke ESRDEssential [id number] of chronic disease PLAN- Will admit as observation.- Neurology was consulted. Appreciate Recs.- CT Head (02/28) does not demonstrate any evolving stroke (should be radiographically apparent after this many hours).- CTA Head/Neck (02/28) demonstrates no vascular occlusions. No endovascular intervention currently indicated.- Will admit to hospital for neurological observation, and MRI Brain, C-spine.- Start ASA and high dose statin.- Neurochecks.- PT, OT, ST.- Monitor VS closely. - Will consult nephro and HD mx. as per nephro.- Will start MD-SSI. Monitor BG closely.- Inpatient BG target: 140-180 - Resume home BP meds when list becomes available. Prophylaxis - Pt. is reportedly on eliquis. Disposition - Observation.Suhas Block MDElectronically Signed: 03/01/22 20:08 2022-03-02 19:05:00-00:00 Suhas Block MD: [facility] Display: History and PhysicalAuthored Date: [id number] and Physical Primary Team Name:Team Contact Info:PCP Contact info:Family contact info: Code Status: None Specified=FULL CODE Chief Complaint: Pt called for Left side weakness that she woke up with, Patient reports that she was fine yesterday after dialysis at 1800. Last seen normal- 02/27/2022 1800. PMH: ERSD HTN History of Present Illness: 56 y/o F with a history of CVA, ESRD on HD, anemia, anxiety, DM II, and Parkinson's seizures, presents to the ED for evaluation of L sided weakness onset today. Patient was brought in by EMS for constant Left UE and Left LE weakness. Patient is normally ambulatory with a walker. Patient was last seen normal 02/27/2022 around 6pm after dialysis. Patient has had a prior CVA and EMS is unsure if patient has any L sided deficits from prior CVA. Patient is currently on Eliquis. The patient will be admitted to the hospital for further work-up and management. Review of Systems: 12 points ROS done and essentially negative except for HPI. Problem List/Past Medical History: Ongoing No qualifying data Social History: Electronic Cigarette/Vaping Electronic Cigarette Use: Never. Tobacco Use: Never smoker. Tobacco smoke exposure: None. Did the Patient Smoke Cigarettes Anytime During the Last 365 Days? No. Cessation Counseling Provided? No. Allergies: No Known Medication Allergies Home Medications: No active home medications Physical Exam: Vitals and Measurements T: 98.6 F (Oral) HR: 69 (Apical) RR: 13 BP: 140/110 SpO2: 94% WT: 62.727 kg BMI: 24.5 General: AAO x 3, No acute distressHEENT: Normocephalic, AtraumaticNeck: Supple, No JVDLungs: CTA BL, Respiratory effort non-laboredCVS: S1 + S2, RRR, No murmurAbd: BS +, Soft, Non-tenderExt: No external deformity, Full ROMNeuro: AAO x 3, No gross neurological deficit, Left sided weaknessSkin: No rash, No jaundicePsychiatric: Calm and cooperative Pertinent Labs: Test Name Test Result Date/Time Sodium Lvl 135 mEq/L 02/28/2022 12:44 PRIVATE DETECTIVE Potassium Lvl 4.3 mEq/L 02/28/2022 12:44 PRIVATE DETECTIVE Chloride Lvl 98 mEq/L 02/28/2022 12:44 PRIVATE DETECTIVE CO2 29 mEq/L 02/28/2022 12:44 PRIVATE DETECTIVE AGAP 12.3 mEq/L 02/28/2022 12:44 PRIVATE DETECTIVE Creatinine Lvl 6.77 mg/dL (High) 02/28/2022 12:44 PRIVATE DETECTIVE eGFR 7 mL/min/1.73m2 02/28/2022 12:44 PRIVATE DETECTIVE BUN 50 mg/dL (High) 02/28/2022 12:44 PRIVATE DETECTIVE B/C Ratio 7 02/28/2022 12:44 PRIVATE DETECTIVE Glucose Lvl 88 mg/dL 02/28/2022 12:44 PRIVATE DETECTIVE Total Protein 6.8 g/dL 02/28/2022 12:44 PRIVATE DETECTIVE Albumin Lvl 2.6 g/dL (Low) 02/28/2022 12:44 PRIVATE DETECTIVE Globulin 4.2 g/dL 02/28/2022 12:44 PRIVATE DETECTIVE A/G Ratio 0.6 (Low) 02/28/2022 12:44 PRIVATE DETECTIVE Calcium Lvl 8.9 mg/dL 02/28/2022 12:44 PRIVATE DETECTIVE ALT AST 10 unit/L 02/28/2022 12:44 PRIVATE DETECTIVE Alk Phos 129 unit/L 02/28/2022 12:44 PRIVATE DETECTIVE Bili Total 0.4 mg/dL 02/28/2022 12:44 PRIVATE DETECTIVE Total CK 54 unit/L 02/28/2022 12:44 PRIVATE DETECTIVE WBC 5.0 K/CMM 02/28/2022 12:44 PRIVATE DETECTIVE RBC 3.28 M/CMM (Low) 02/28/2022 12:44 PRIVATE DETECTIVE Hgb 11.3 g/dL (Low) 02/28/2022 12:44 PRIVATE DETECTIVE Hct 34.1 % (Low) 02/28/2022 12:44 PRIVATE DETECTIVE MCV 104.0 fL (High) 02/28/2022 12:44 PRIVATE DETECTIVE MCH 34.4 pg (High) 02/28/2022 12:44 PRIVATE DETECTIVE MCHC 33.1 g/dL 02/28/2022 12:44 PRIVATE DETECTIVE RDW 17.9 % (High) 02/28/2022 12:44 PRIVATE DETECTIVE MPV 8.1 fL 02/28/2022 12:44 PRIVATE DETECTIVE Platelet 302 K/CMM 02/28/2022 12:44 PRIVATE DETECTIVE Segs 57.6 % 02/28/2022 12:44 PRIVATE DETECTIVE Lymphocytes 33.5 % 02/28/2022 12:44 PRIVATE DETECTIVE Monocytes 6.3 % 02/28/2022 12:44 PRIVATE DETECTIVE Eosinophils 2.0 % 02/28/2022 12:44 PRIVATE DETECTIVE Basophils 0.6 % 02/28/2022 12:44 PRIVATE DETECTIVE Neutrophils # 2.9 K/CMM 02/28/2022 12:44 PRIVATE DETECTIVE Lymphocytes # 1.7 K/CMM 02/28/2022 12:44 PRIVATE DETECTIVE Monocytes # 0.3 K/CMM 02/28/2022 12:44 PRIVATE DETECTIVE Eosinophils # 0.1 K/CMM 02/28/2022 12:44 PRIVATE DETECTIVE PT 14.5 seconds 02/28/2022 12:44 PRIVATE DETECTIVE INR 1.14 02/28/2022 12:44 PRIVATE DETECTIVE PTT 36.9 seconds (High) 02/28/2022 12:44 PRIVATE DETECTIVE Coronavirus (COVID-19) CHERIE Not Detected 02/28/2022 12:44 PRIVATE DETECTIVE Pertinent Imaging: Brain Stroke wo contrast CT 02/28/22 12:49:55IMPRESSION:1. No acute intracranial abnormalities are visible.2. Chronic lacunar infarcts of the bilateral basal ganglia are noted. ASSESSMENT:ASPECTS ([place] Stroke Program Early CT Score) is 10. Matt Kohli MD On 02/28/2022 12:48:58; [id number] Signed By: Matt Kohli MD 02/28/22 12:53:32Radiation Dose CTDIVOL = 0 (mGy): DLP = 1045.5 (mGy-cm) ADDENDUM:The call to the ordering clinician was initiated on 02/28/2022 at 1248 hours. The findings were discussed with Dr. Whitt on 02/28/2022 at 1252 hours. Matt Kohli MD On 02/28/2022 12:53:06 CTA NECK:1. No occlusion or stenosis of the bilateral extracranial internal carotidarteries.2. The bilateral vertebral arteries are patent. CTA BRAIN:3. No occlusion or significant stenosis of the [place].4. No cerebral aneurysms are identified. REFERENCES:NASCET CRITERIA. The degree of stenosis in the cervical segment of the internal carotid artery is based on NASCET criteria. Normal is no stenosis. Mild is less than 50% stenosis. Moderate is 50-69% stenosis. Severe is 70% to 99% stenosis. Total occlusion is no detectable patent lumen. Matt Kohli MD On 02/28/2022 12:57:48 Chest 1view DX 02/28/22 13:31:09IMPRESSION:No acute cardiopulmonary findings. Nicolasa Spicer MD On 02/28/2022 13:30:43 Assessment/Plan: Neurologic deficit due to acute ischemic stroke (I63.9) Ordered: Admit/Condition, 02/28/22 15:08:00 PRIVATE DETECTIVE, Status: Out Patient with Observation Services, Telemetry Capable Location, Expected LOS: 1 Midnight, Suhas Block MD, Admit MD Review/Approve Yes, Isolation: No Isolation, Neurologic deficit due to acute ischemic stroke ESRDEssential [id number] of chronic disease PLAN- Will admit as observation.- Neurology was consulted. Appreciate Recs.- CT Head (02/28) does not demonstrate any evolving stroke (should be radiographically apparent after this many hours).- CTA Head/Neck (02/28) demonstrates no vascular occlusions. No endovascular intervention currently indicated.- Will admit to hospital for neurological observation, and MRI Brain, C-spine.- Start ASA and high dose statin.- Neurochecks.- PT, OT, ST.- Monitor VS closely. - Will consult nephro and HD mx. as per nephro.- Will start MD-SSI. Monitor BG closely.- Inpatient BG target: 140-180 - Resume home BP meds when list becomes available. Prophylaxis - Pt. is reportedly on eliquis. Disposition - Observation.Suhas Block MDElectronically Signed: 03/01/22 20:08 2022-03-02 19:05:00-:00 Suhas Block MD: [facility] Display: History and PhysicalAuthored Date: [id number] and Physical Primary Team Name:Team Contact Info:PCP Contact info:Family contact info: Code Status: None Specified=FULL CODE Chief Complaint: Pt called for Left side weakness that she woke up with, Patient reports that she was fine yesterday after dialysis at 1800. Last seen normal- 02/27/2022 1800. PMH: ERSD HTN History of Present Illness: 56 y/o F with a history of CVA, ESRD on HD, anemia, anxiety, DM II, and Parkinson's seizures, presents to the ED for evaluation of L sided weakness onset today. Patient was brought in by EMS for constant Left UE and Left LE weakness. Patient is normally ambulatory with a walker. Patient was last seen normal 02/27/2022 around 6pm after dialysis. Patient has had a prior CVA and EMS is unsure if patient has any L sided deficits from prior CVA. Patient is currently on Eliquis. The patient will be admitted to the hospital for further work-up and management. Review of Systems: 12 points ROS done and essentially negative except for HPI. Problem List/Past Medical History: Ongoing No qualifying data Social History: Electronic Cigarette/Vaping Electronic Cigarette Use: Never. Tobacco Use: Never smoker. Tobacco smoke exposure: None. Did the Patient Smoke Cigarettes Anytime During the Last 365 Days? No. Cessation Counseling Provided? No. Allergies: No Known Medication Allergies Home Medications: No active home medications Physical Exam: Vitals and Measurements T: 98.6 F (Oral) HR: 69 (Apical) RR: 13 BP: 140/110 SpO2: 94% WT: 62.727 kg BMI: 24.5 General: AAO x 3, No acute distressHEENT: Normocephalic, AtraumaticNeck: Supple, No JVDLungs: CTA BL, Respiratory effort non-laboredCVS: S1 + S2, RRR, No murmurAbd: BS +, Soft, Non-tenderExt: No external deformity, Full ROMNeuro: AAO x 3, No gross neurological deficit, Left sided weaknessSkin: No rash, No jaundicePsychiatric: Calm and cooperative Pertinent Labs: Test Name Test Result Date/Time Sodium Lvl 135 mEq/L 02/28/2022 12:44 PRIVATE DETECTIVE Potassium Lvl 4.3 mEq/L 02/28/2022 12:44 PRIVATE DETECTIVE Chloride Lvl 98 mEq/L 02/28/2022 12:44 PRIVATE DETECTIVE CO2 29 mEq/L 02/28/2022 12:44 PRIVATE DETECTIVE AGAP 12.3 mEq/L 02/28/2022 12:44 PRIVATE DETECTIVE Creatinine Lvl 6.77 mg/dL (High) 02/28/2022 12:44 PRIVATE DETECTIVE eGFR 7 mL/min/1.73m2 02/28/2022 12:44 PRIVATE DETECTIVE BUN 50 mg/dL (High) 02/28/2022 12:44 PRIVATE DETECTIVE B/C Ratio 7 02/28/2022 12:44 PRIVATE DETECTIVE Glucose Lvl 88 mg/dL 02/28/2022 12:44 PRIVATE DETECTIVE Total Protein 6.8 g/dL 02/28/2022 12:44 PRIVATE DETECTIVE Albumin Lvl 2.6 g/dL (Low) 02/28/2022 12:44 PRIVATE DETECTIVE Globulin 4.2 g/dL 02/28/2022 12:44 PRIVATE DETECTIVE A/G Ratio 0.6 (Low) 02/28/2022 12:44 PRIVATE DETECTIVE Calcium Lvl 8.9 mg/dL 02/28/2022 12:44 PRIVATE DETECTIVE ALT AST 10 unit/L 02/28/2022 12:44 PRIVATE DETECTIVE Alk Phos 129 unit/L 02/28/2022 12:44 PRIVATE DETECTIVE Bili Total 0.4 mg/dL 02/28/2022 12:44 PRIVATE DETECTIVE Total CK 54 unit/L 02/28/2022 12:44 PRIVATE DETECTIVE WBC 5.0 K/CMM 02/28/2022 12:44 PRIVATE DETECTIVE RBC 3.28 M/CMM (Low) 02/28/2022 12:44 PRIVATE DETECTIVE Hgb 11.3 g/dL (Low) 02/28/2022 12:44 PRIVATE DETECTIVE Hct 34.1 % (Low) 02/28/2022 12:44 PRIVATE DETECTIVE MCV 104.0 fL (High) 02/28/2022 12:44 PRIVATE DETECTIVE MCH 34.4 pg (High) 02/28/2022 12:44 PRIVATE DETECTIVE MCHC 33.1 g/dL 02/28/2022 12:44 PRIVATE DETECTIVE RDW 17.9 % (High) 02/28/2022 12:44 PRIVATE DETECTIVE MPV 8.1 fL 02/28/2022 12:44 PRIVATE DETECTIVE Platelet 302 K/CMM 02/28/2022 12:44 PRIVATE DETECTIVE Segs 57.6 % 02/28/2022 12:44 PRIVATE DETECTIVE Lymphocytes 33.5 % 02/28/2022 12:44 PRIVATE DETECTIVE Monocytes 6.3 % 02/28/2022 12:44 PRIVATE DETECTIVE Eosinophils 2.0 % 02/28/2022 12:44 PRIVATE DETECTIVE Basophils 0.6 % 02/28/2022 12:44 PRIVATE DETECTIVE Neutrophils # 2.9 K/CMM 02/28/2022 12:44 PRIVATE DETECTIVE Lymphocytes # 1.7 K/CMM 02/28/2022 12:44 PRIVATE DETECTIVE Monocytes # 0.3 K/CMM 02/28/2022 12:44 PRIVATE DETECTIVE Eosinophils # 0.1 K/CMM 02/28/2022 12:44 PRIVATE DETECTIVE PT 14.5 seconds 02/28/2022 12:44 PRIVATE DETECTIVE INR 1.14 02/28/2022 12:44 PRIVATE DETECTIVE PTT 36.9 seconds (High) 02/28/2022 12:44 PRIVATE DETECTIVE Coronavirus (COVID-19) CHERIE Not Detected 02/28/2022 12:44 PRIVATE DETECTIVE Pertinent Imaging: Brain Stroke wo contrast CT 02/28/22 12:49:55IMPRESSION:1. No acute intracranial abnormalities are visible.2. Chronic lacunar infarcts of the bilateral basal ganglia are noted. ASSESSMENT:ASPECTS ([place] Stroke Program Early CT Score) is 10. Matt Kohli MD On 02/28/2022 12:48:58; [id number] Signed By: Matt Kohli MD 02/28/22 12:53:32Radiation Dose CTDIVOL = 0 (mGy): DLP = 1045.5 (mGy-cm) ADDENDUM:The call to the ordering clinician was initiated on 02/28/2022 at 1248 hours. The findings were discussed with Dr. Whitt on 02/28/2022 at 1252 hours. Matt Kohli MD On 02/28/2022 12:53:06 CTA NECK:1. No occlusion or stenosis of the bilateral extracranial internal carotidarteries.2. The bilateral vertebral arteries are patent. CTA BRAIN:3. No occlusion or significant stenosis of the [place].4. No cerebral aneurysms are identified. REFERENCES:NASCET CRITERIA. The degree of stenosis in the cervical segment of the internal carotid artery is based on NASCET criteria. Normal is no stenosis. Mild is less than 50% stenosis. Moderate is 50-69% stenosis. Severe is 70% to 99% stenosis. Total occlusion is no detectable patent lumen. Matt Kohli MD On 02/28/2022 12:57:48 Chest 1view DX 02/28/22 13:31:09IMPRESSION:No acute cardiopulmonary findings. Nicolasa Spicer MD On 02/28/2022 13:30:43 Assessment/Plan: Neurologic deficit due to acute ischemic stroke (I63.9) Ordered: Admit/Condition, 02/28/22 15:08:00 PRIVATE DETECTIVE, Status: Out Patient with Observation Services, Telemetry Capable Location, Expected LOS: 1 Midnight, Suhas Block MD, Admit MD Review/Approve Yes, Isolation: No Isolation, Neurologic deficit due to acute ischemic stroke ESRDEssential [id number] of chronic disease PLAN- Will admit as observation.- Neurology was consulted. Appreciate Recs.- CT Head (02/28) does not demonstrate any evolving stroke (should be radiographically apparent after this many hours).- CTA Head/Neck (02/28) demonstrates no vascular occlusions. No endovascular intervention currently indicated.- Will admit to hospital for neurological observation, and MRI Brain, C-spine.- Start ASA and high dose statin.- Neurochecks.- PT, OT, ST.- Monitor VS closely. - Will consult nephro and HD mx. as per nephro.- Will start MD-SSI. Monitor BG closely.- Inpatient BG target: 140-180 - Resume home BP meds when list becomes available. Prophylaxis - Pt. is reportedly on eliquis. Disposition - Observation.Suhas Block MDElectronically Signed: 03/01/22 20:08 2022-03-02 19:05:00-:00 Suhas Block MD: [facility] Display: History and PhysicalAuthored Date: [id number] and Physical Primary Team Name:Team Contact Info:PCP Contact info:Family contact info: Code Status: None Specified=FULL CODE Chief Complaint: Pt called for Left side weakness that she woke up with, Patient reports that she was fine yesterday after dialysis at 1800. Last seen normal- 02/27/2022 1800. PMH: ERSD HTN History of Present Illness: 56 y/o F with a history of CVA, ESRD on HD, anemia, anxiety, DM II, and Parkinson's seizures, presents to the ED for evaluation of L sided weakness onset today. Patient was brought in by EMS for constant Left UE and Left LE weakness. Patient is normally ambulatory with a walker. Patient was last seen normal 02/27/2022 around 6pm after dialysis. Patient has had a prior CVA and EMS is unsure if patient has any L sided deficits from prior CVA. Patient is currently on Eliquis. The patient will be admitted to the hospital for further work-up and management. Review of Systems: 12 points ROS done and essentially negative except for HPI. Problem List/Past Medical History: Ongoing No qualifying data Social History: Electronic Cigarette/Vaping Electronic Cigarette Use: Never. Tobacco Use: Never smoker. Tobacco smoke exposure: None. Did the Patient Smoke Cigarettes Anytime During the Last 365 Days? No. Cessation Counseling Provided? No. Allergies: No Known Medication Allergies Home Medications: No active home medications Physical Exam: Vitals and Measurements T: 98.6 F (Oral) HR: 69 (Apical) RR: 13 BP: 140/110 SpO2: 94% WT: 62.727 kg BMI: 24.5 General: AAO x 3, No acute distressHEENT: Normocephalic, AtraumaticNeck: Supple, No JVDLungs: CTA BL, Respiratory effort non-laboredCVS: S1 + S2, RRR, No murmurAbd: BS +, Soft, Non-tenderExt: No external deformity, Full ROMNeuro: AAO x 3, No gross neurological deficit, Left sided weaknessSkin: No rash, No jaundicePsychiatric: Calm and cooperative Pertinent Labs: Test Name Test Result Date/Time Sodium Lvl 135 mEq/L 02/28/2022 12:44 PRIVATE DETECTIVE Potassium Lvl 4.3 mEq/L 02/28/2022 12:44 PRIVATE DETECTIVE Chloride Lvl 98 mEq/L 02/28/2022 12:44 PRIVATE DETECTIVE CO2 29 mEq/L 02/28/2022 12:44 PRIVATE DETECTIVE AGAP 12.3 mEq/L 02/28/2022 12:44 PRIVATE DETECTIVE Creatinine Lvl 6.77 mg/dL (High) 02/28/2022 12:44 PRIVATE DETECTIVE eGFR 7 mL/min/1.73m2 02/28/2022 12:44 PRIVATE DETECTIVE BUN 50 mg/dL (High) 02/28/2022 12:44 PRIVATE DETECTIVE B/C Ratio 7 02/28/2022 12:44 PRIVATE DETECTIVE Glucose Lvl 88 mg/dL 02/28/2022 12:44 PRIVATE DETECTIVE Total Protein 6.8 g/dL 02/28/2022 12:44 PRIVATE DETECTIVE Albumin Lvl 2.6 g/dL (Low) 02/28/2022 12:44 PRIVATE DETECTIVE Globulin 4.2 g/dL 02/28/2022 12:44 PRIVATE DETECTIVE A/G Ratio 0.6 (Low) 02/28/2022 12:44 PRIVATE DETECTIVE Calcium Lvl 8.9 mg/dL 02/28/2022 12:44 PRIVATE DETECTIVE ALT AST 10 unit/L 02/28/2022 12:44 PRIVATE DETECTIVE Alk Phos 129 unit/L 02/28/2022 12:44 PRIVATE DETECTIVE Bili Total 0.4 mg/dL 02/28/2022 12:44 PRIVATE DETECTIVE Total CK 54 unit/L 02/28/2022 12:44 PRIVATE DETECTIVE WBC 5.0 K/CMM 02/28/2022 12:44 PRIVATE DETECTIVE RBC 3.28 M/CMM (Low) 02/28/2022 12:44 PRIVATE DETECTIVE Hgb 11.3 g/dL (Low) 02/28/2022 12:44 PRIVATE DETECTIVE Hct 34.1 % (Low) 02/28/2022 12:44 PRIVATE DETECTIVE MCV 104.0 fL (High) 02/28/2022 12:44 PRIVATE DETECTIVE MCH 34.4 pg (High) 02/28/2022 12:44 PRIVATE DETECTIVE MCHC 33.1 g/dL 02/28/2022 12:44 PRIVATE DETECTIVE RDW 17.9 % (High) 02/28/2022 12:44 PRIVATE DETECTIVE MPV 8.1 fL 02/28/2022 12:44 PRIVATE DETECTIVE Platelet 302 K/CMM 02/28/2022 12:44 PRIVATE DETECTIVE Segs 57.6 % 02/28/2022 12:44 PRIVATE DETECTIVE Lymphocytes 33.5 % 02/28/2022 12:44 PRIVATE DETECTIVE Monocytes 6.3 % 02/28/2022 12:44 PRIVATE DETECTIVE Eosinophils 2.0 % 02/28/2022 12:44 PRIVATE DETECTIVE Basophils 0.6 % 02/28/2022 12:44 PRIVATE DETECTIVE Neutrophils # 2.9 K/CMM 02/28/2022 12:44 PRIVATE DETECTIVE Lymphocytes # 1.7 K/CMM 02/28/2022 12:44 PRIVATE DETECTIVE Monocytes # 0.3 K/CMM 02/28/2022 12:44 PRIVATE DETECTIVE Eosinophils # 0.1 K/CMM 02/28/2022 12:44 PRIVATE DETECTIVE PT 14.5 seconds 02/28/2022 12:44 PRIVATE DETECTIVE INR 1.14 02/28/2022 12:44 PRIVATE DETECTIVE PTT 36.9 seconds (High) 02/28/2022 12:44 PRIVATE DETECTIVE Coronavirus (COVID-19) CHERIE Not Detected 02/28/2022 12:44 PRIVATE DETECTIVE Pertinent Imaging: Brain Stroke wo contrast CT 02/28/22 12:49:55IMPRESSION:1. No acute intracranial abnormalities are visible.2. Chronic lacunar infarcts of the bilateral basal ganglia are noted. ASSESSMENT:ASPECTS ([place] Stroke Program Early CT Score) is 10. Matt Kohli MD On 02/28/2022 12:48:58; [id number] Signed By: Matt Kohli MD 02/28/22 12:53:32Radiation Dose CTDIVOL = 0 (mGy): DLP = 1045.5 (mGy-cm) ADDENDUM:The call to the ordering clinician was initiated on 02/28/2022 at 1248 hours. The findings were discussed with Dr. Whitt on 02/28/2022 at 1252 hours. Matt Kohli MD On 02/28/2022 12:53:06 CTA NECK:1. No occlusion or stenosis of the bilateral extracranial internal carotidarteries.2. The bilateral vertebral arteries are patent. CTA BRAIN:3. No occlusion or significant stenosis of the [place].4. No cerebral aneurysms are identified. REFERENCES:NASCET CRITERIA. The degree of stenosis in the cervical segment of the internal carotid artery is based on NASCET criteria. Normal is no stenosis. Mild is less than 50% stenosis. Moderate is 50-69% stenosis. Severe is 70% to 99% stenosis. Total occlusion is no detectable patent lumen. Matt Kohli MD On 02/28/2022 12:57:48 Chest 1view DX 02/28/22 13:31:09IMPRESSION:No acute cardiopulmonary findings. Nicolasa Spicer MD On 02/28/2022 13:30:43 Assessment/Plan: Neurologic deficit due to acute ischemic stroke (I63.9) Ordered: Admit/Condition, 02/28/22 15:08:00 PRIVATE DETECTIVE, Status: Out Patient with Observation Services, Telemetry Capable Location, Expected LOS: 1 Midnight, Suhas Block MD, Admit MD Review/Approve Yes, Isolation: No Isolation, Neurologic deficit due to acute ischemic stroke ESRDEssential [id number] of chronic disease PLAN- Will admit as observation.- Neurology was consulted. Appreciate Recs.- CT Head (02/28) does not demonstrate any evolving stroke (should be radiographically apparent after this many hours).- CTA Head/Neck (02/28) demonstrates no vascular occlusions. No endovascular intervention currently indicated.- Will admit to hospital for neurological observation, and MRI Brain, C-spine.- Start ASA and high dose statin.- Neurochecks.- PT, OT, ST.- Monitor VS closely. - Will consult nephro and HD mx. as per nephro.- Will start MD-SSI. Monitor BG closely.- Inpatient BG target: 140-180 - Resume home BP meds when list becomes available. Prophylaxis - Pt. is reportedly on eliquis. Disposition - Observation.Suhas Block MDElectronically Signed: 03/01/22 20:08 Notes Date/Time Note Provider Source 2022-07-15 PROCEDURE INFORMATION: [facility] 12:38:07-00:00 Exam: XR Left Tibia and Fibula Exam date and time: 07/15/2022 12:07 PM Age: 57 years old Clinical indication: /s/p crush injury TECHNIQUE: Imaging protocol: Radiologic exam of the left ti fransisco and fibula. Views: 2 views. COMPARISON: No relevant prior studies available. FINDINGS: Bones/joints: Anatomic alignment. No acute fract ure or dislocation. Soft tissues: Non-specific soft tissue swelling overlying the mid anterior tibia. IMPRESSION: 1. No acute fracture. 2. Non-specific soft tissue swelling overlying t he mid anterior tibia. Derrick López MD On 07/15/2022 13:14:39; [id number] 2022-07-15 PROCEDURE INFORMATION: [facility] 12:38:07-00:00 Exam: XR Left Tibia and Fibula Exam date and time: 07/15/2022 12:07 PM Age: 57 years old Clinical indication: /s/p crush injury TECHNIQUE: Imaging protocol: Radiologic exam of the left ti fransisco and fibula. Views: 2 views. COMPARISON: No relevant prior studies available. FINDINGS: Bones/joints: Anatomic alignment. No acute fract ure or dislocation. Soft tissues: Non-specific soft tissue swelling overlying the mid anterior tibia. IMPRESSION: 1. No acute fracture. 2. Non-specific soft tissue swelling overlying t he mid anterior tibia. Derrick López MD On 07/15/2022 13:14:39; [id number] 2022-07-15 PROCEDURE INFORMATION: [facility] 12:38:07-00:00 Exam: XR Left Tibia and Fibula Exam date and time: 07/15/2022 12:07 PM Age: 57 years old Clinical indication: /s/p crush injury TECHNIQUE: Imaging protocol: Radiologic exam of the left ti fransisco and fibula. Views: 2 views. COMPARISON: No relevant prior studies available. FINDINGS: Bones/joints: Anatomic alignment. No acute fract ure or dislocation. Soft tissues: Non-specific soft tissue swelling overlying the mid anterior tibia. IMPRESSION: 1. No acute fracture. 2. Non-specific soft tissue swelling overlying t he mid anterior tibia. Derrick López MD On 07/15/2022 13:14:39; [id number] 2022-07-15 PROCEDURE INFORMATION: [facility] 12:38:07-00:00 Exam: XR Left Tibia and Fibula Exam date and time: 07/15/2022 12:07 PM Age: 57 years old Clinical indication: /s/p crush injury TECHNIQUE: Imaging protocol: Radiologic exam of the left ti fransisco and fibula. Views: 2 views. COMPARISON: No relevant prior studies available. FINDINGS: Bones/joints: Anatomic alignment. No acute fract ure or dislocation. Soft tissues: Non-specific soft tissue swelling overlying the mid anterior tibia. IMPRESSION: 1. No acute fracture. 2. Non-specific soft tissue swelling overlying t he mid anterior tibia. Derrick López MD On 07/15/2022 13:14:39; [id number] 2022-06-06 PROCEDURE INFORMATION: [facility] 16:40:48-00:00 Exam: XR Chest Exam date and time: 06/06/2022 4:42 PM Age: 57 years old Clinical indication: /weakness TECHNIQUE: Imaging protocol: Radiologic exam of the chest. Views: 1 view. COMPARISON: No relevant prior studies available. FINDINGS: Lungs: Normal lung volumes. No consolidation. A right IJ dialysis catheter is present with tip in the region of the right atri um. Pleural spaces: Unremarkable. No pleural effusio n. No pneumothorax. Heart/Mediastinum: Heart size is within normal l imits. Vasculature is unremarkable. Bones/joints: There is an old fracture involving the proximal right humerus. IMPRESSION: No acute cardiopulmonary findings. Fabricio Wiggins MD On 06/06/2022 17:42:53; GHADA [id number] 2022-06-06 PROCEDURE INFORMATION: [facility] 16:40:48-00:00 Exam: XR Chest Exam date and time: 06/06/2022 4:42 PM Age: 57 years old Clinical indication: /weakness TECHNIQUE: Imaging protocol: Radiologic exam of the chest. Views: 1 view. COMPARISON: No relevant prior studies available. FINDINGS: Lungs: Normal lung volumes. No consolidation. A right IJ dialysis catheter is present with tip in the region of the right atri um. Pleural spaces: Unremarkable. No pleural effusio n. No pneumothorax. Heart/Mediastinum: Heart size is within normal l imits. Vasculature is unremarkable. Bones/joints: There is an old fracture involving the proximal right humerus. IMPRESSION: No acute cardiopulmonary findings. Fabricio Wiggins MD On 06/06/2022 17:42:53; GHADA [id number] 2022-06-06 PROCEDURE INFORMATION: [facility] 16:40:48-00:00 Exam: XR Chest Exam date and time: 06/06/2022 4:42 PM Age: 57 years old Clinical indication: /weakness TECHNIQUE: Imaging protocol: Radiologic exam of the chest. Views: 1 view. COMPARISON: No relevant prior studies available. FINDINGS: Lungs: Normal lung volumes. No consolidation. A right IJ dialysis catheter is present with tip in the region of the right atri um. Pleural spaces: Unremarkable. No pleural effusio n. No pneumothorax. Heart/Mediastinum: Heart size is within normal l imits. Vasculature is unremarkable. Bones/joints: There is an old fracture involving the proximal right humerus. IMPRESSION: No acute cardiopulmonary findings. Fabricio Wiggins MD On 06/06/2022 17:42:53; GHADA [id number] 2022-06-06 PROCEDURE INFORMATION: [facility] 16:40:48-00:00 Exam: XR Chest Exam date and time: 06/06/2022 4:42 PM Age: 57 years old Clinical indication: /weakness TECHNIQUE: Imaging protocol: Radiologic exam of the chest. Views: 1 view. COMPARISON: No relevant prior studies available. FINDINGS: Lungs: Normal lung volumes. No consolidation. A right IJ dialysis catheter is present with tip in the region of the right atri um. Pleural spaces: Unremarkable. No pleural effusio n. No pneumothorax. Heart/Mediastinum: Heart size is within normal l imits. Vasculature is unremarkable. Bones/joints: There is an old fracture involving the proximal right humerus. IMPRESSION: No acute cardiopulmonary findings. Fabricio Wiggins MD On 06/06/2022 17:42:53; GHADA [id number] 2022-03-28 Radiation Dose CTDIVOL = 0 (mGy): DLP = 896.13 ( mGy-cm) [facility] 19:50:00-00:00 PROCEDURE INFORMATION: Exam: CT Head Without Contrast Exam date and time: 03/28/2022 7:57 PM Age: 56 years old Clinical indication: /quesitonable seizure TECHNIQUE: Imaging protocol: Computed tomography of the hea d without contrast. Radiation optimization: All CT scans at this facility use at least one of these dose optimization techniques: automated exposure control; mA and/or kV adjustment per patient size (includes targeted e xams where dose is matched to clinical indication); or iterative reconstructio n. COMPARISON: BRAIN WO CONTRAST MRI 02/28/2022 3:36 PM RADIATION DOSE METRICS: Total DLP (mGy-cm): 896.13 FINDINGS: Brain: Old bilateral basal ganglia infarcts. No acute infarct or intracranial hemorrhage. Cerebral ventricles: No ventriculomegaly. Paranasal sinuses: Visualized sinuses are unrema rkable. No fluid levels. Mastoid air cells: Visualized mastoid air cells are well aerated. Bones/joints: Unremarkable. No acute fracture. Soft tissues: Unremarkable. IMPRESSION: 1. No acute intracranial abnormality. 2. Old bilateral basal ganglia infarcts. Neno Tao MD On 03/28/2022 21:26:59; [id number] 2022-03-28 Radiation Dose CTDIVOL = 0 (mGy): DLP = 896.13 ( mGy-cm) [facility] 19:50:00-00:00 PROCEDURE INFORMATION: Exam: CT Head Without Contrast Exam date and time: 03/28/2022 7:57 PM Age: 56 years old Clinical indication: /quesitonable seizure TECHNIQUE: Imaging protocol: Computed tomography of the hea d without contrast. Radiation optimization: All CT scans at this facility use at least one of these dose optimization techniques: automated exposure control; mA and/or kV adjustment per patient size (includes targeted e xams where dose is matched to clinical indication); or iterative reconstructio n. COMPARISON: BRAIN WO CONTRAST MRI 02/28/2022 3:36 PM RADIATION DOSE METRICS: Total DLP (mGy-cm): 896.13 FINDINGS: Brain: Old bilateral basal ganglia infarcts. No acute infarct or intracranial hemorrhage. Cerebral ventricles: No ventriculomegaly. Paranasal sinuses: Visualized sinuses are unrema rkable. No fluid levels. Mastoid air cells: Visualized mastoid air cells are well aerated. Bones/joints: Unremarkable. No acute fracture. Soft tissues: Unremarkable. IMPRESSION: 1. No acute intracranial abnormality. 2. Old bilateral basal ganglia infarcts. Neno Tao MD On 03/28/2022 21:26:59; [id number] 2022-03-28 Radiation Dose CTDIVOL = 0 (mGy): DLP = 896.13 ( mGy-cm) [facility] 19:50:00-00:00 PROCEDURE INFORMATION: Exam: CT Head Without Contrast Exam date and time: 03/28/2022 7:57 PM Age: 56 years old Clinical indication: /quesitonable seizure TECHNIQUE: Imaging protocol: Computed tomography of the hea d without contrast. Radiation optimization: All CT scans at this facility use at least one of these dose optimization techniques: automated exposure control; mA and/or kV adjustment per patient size (includes targeted e xams where dose is matched to clinical indication); or iterative reconstructio n. COMPARISON: BRAIN WO CONTRAST MRI 02/28/2022 3:36 PM RADIATION DOSE METRICS: Total DLP (mGy-cm): 896.13 FINDINGS: Brain: Old bilateral basal ganglia infarcts. No acute infarct or intracranial hemorrhage. Cerebral ventricles: No ventriculomegaly. Paranasal sinuses: Visualized sinuses are unrema rkable. No fluid levels. Mastoid air cells: Visualized mastoid air cells are well aerated. Bones/joints: Unremarkable. No acute fracture. Soft tissues: Unremarkable. IMPRESSION: 1. No acute intracranial abnormality. 2. Old bilateral basal ganglia infarcts. Neno Tao MD On 03/28/2022 21:26:59; [id number] 2022-03-28 Radiation Dose CTDIVOL = 0 (mGy): DLP = 896.13 ( mGy-cm) [facility] 19:50:00-00:00 PROCEDURE INFORMATION: Exam: CT Head Without Contrast Exam date and time: 03/28/2022 7:57 PM Age: 56 years old Clinical indication: /quesitonable seizure TECHNIQUE: Imaging protocol: Computed tomography of the hea d without contrast. Radiation optimization: All CT scans at this facility use at least one of these dose optimization techniques: automated exposure control; mA and/or kV adjustment per patient size (includes targeted e xams where dose is matched to clinical indication); or iterative reconstructio n. COMPARISON: BRAIN WO CONTRAST MRI 02/28/2022 3:36 PM RADIATION DOSE METRICS: Total DLP (mGy-cm): 896.13 FINDINGS: Brain: Old bilateral basal ganglia infarcts. No acute infarct or intracranial hemorrhage. Cerebral ventricles: No ventriculomegaly. Paranasal sinuses: Visualized sinuses are unrema rkable. No fluid levels. Mastoid air cells: Visualized mastoid air cells are well aerated. Bones/joints: Unremarkable. No acute fracture. Soft tissues: Unremarkable. IMPRESSION: 1. No acute intracranial abnormality. 2. Old bilateral basal ganglia infarcts. Neno Tao MD On 03/28/2022 21:26:59; [id number] 2022-03-28 PROCEDURE INFORMATION: [facility] 19:40:54-00:00 Exam: XR Chest Exam date and time: 03/28/2022 7:24 PM Age: 56 years old Clinical indication: /seizure TECHNIQUE: Imaging protocol: Radiologic exam of the chest. Views: 1 view. COMPARISON: CHEST 1VIEW DX 02/28/2022 12:51 PM FINDINGS: Lungs: The lungs are clear. Lung volumes are low . Right-sided central venous catheter tip overlies the inferior right atrial region. Pleural spaces: Unremarkable. No pleural effusio n. No pneumothorax. Heart/Mediastinum: Heart size is within normal l imits. Vasculature is unremarkable. Bones/joints: Spondylotic changes noted in the t horacic spine. There are degenerative changes in the right shoulder. IMPRESSION: No acute cardiopulmonary findings. Herve Drake MD On 03/28/2022 20:36:57; [id number] PROCEDURE INFORMATION: [facility] 19:40:54-00:00 Exam: XR Chest Exam date and time: 03/28/2022 7:24 PM Age: 56 years old Clinical indication: /seizure TECHNIQUE: Imaging protocol: Radiologic exam of the chest. Views: 1 view. COMPARISON: CHEST 1VIEW DX 02/28/2022 12:51 PM FINDINGS: Lungs: The lungs are clear. Lung volumes are low . Right-sided central venous catheter tip overlies the inferior right atrial region. Pleural spaces: Unremarkable. No pleural effusio n. No pneumothorax. Heart/Mediastinum: Heart size is within normal l imits. Vasculature is unremarkable. Bones/joints: Spondylotic changes noted in the t horacic spine. There are degenerative changes in the right shoulder. IMPRESSION: No acute cardiopulmonary findings. Herve Drake MD On 03/28/2022 20:36:57; -[id number] PROCEDURE INFORMATION: [facility] 19:40:54-00:00 Exam: XR Chest Exam date and time: 03/28/2022 7:24 PM Age: 56 years old Clinical indication: /seizure TECHNIQUE: Imaging protocol: Radiologic exam of the chest. Views: 1 view. COMPARISON: CHEST 1VIEW DX 02/28/2022 12:51 PM FINDINGS: Lungs: The lungs are clear. Lung volumes are low . Right-sided central venous catheter tip overlies the inferior right atrial region. Pleural spaces: Unremarkable. No pleural effusio n. No pneumothorax. Heart/Mediastinum: Heart size is within normal l imits. Vasculature is unremarkable. Bones/joints: Spondylotic changes noted in the t horacic spine. There are degenerative changes in the right shoulder. IMPRESSION: No acute cardiopulmonary findings. Herve Drake MD On 03/28/2022 20:36:57; [id number] PROCEDURE INFORMATION: [facility] 19:40:54-00:00 Exam: XR Chest Exam date and time: 03/28/2022 7:24 PM Age: 56 years old Clinical indication: /seizure TECHNIQUE: Imaging protocol: Radiologic exam of the chest. Views: 1 view. COMPARISON: CHEST 1VIEW DX 02/28/2022 12:51 PM FINDINGS: Lungs: The lungs are clear. Lung volumes are low . Right-sided central venous catheter tip overlies the inferior right atrial region. Pleural spaces: Unremarkable. No pleural effusio n. No pneumothorax. Heart/Mediastinum: Heart size is within normal l imits. Vasculature is unremarkable. Bones/joints: Spondylotic changes noted in the t horacic spine. There are degenerative changes in the right shoulder. IMPRESSION: No acute cardiopulmonary findings. Herve Drake MD On 03/28/2022 20:36:57; [id number] PROCEDURE INFORMATION: [facility] 15:56:00-00:00 Exam: MR Cervical Spine Without Contrast Exam date and time: 02/28/2022 3:55 PM Age: 56 years old Clinical indication: /acute left arm / leg hemip aresis - sparing face TECHNIQUE: Imaging protocol: Magnetic resonance imaging of the cervical spine without contrast. COMPARISON: BRAIN/NECK STROKE CTA 02/28/2022 12:31 PM FINDINGS: Bones/joints: The normal cervical lordosis is pr eserved. Trace retrolisthesis at C3-C4, C4-C5, and C5-C6. The vertebral body h eights are maintained. Degenerative endplate marrow signal changes are visualized. Spinal cord: Normal signal. C2-C3: Mild left neural foraminal stenosis secon bindu to and facet joint arthrosis. The spinal canal and right neural for amen are grossly patent. C3-C4: Broad-based disc bulging with uncovertebr al joint arthrosis. Mild to moderate spinal canal stenosis. Moderate bilater al neural foraminal stenosis. C4-C5: Posterior disc-osteophyte complex with un covertebral and facet joint arthrosis. Moderate to severe spinal canal steno sis, with the AP dimension of the spinal canal measuring 6.5 mm. Severe right and moderate left neural foraminal stenosis. C5-C6: Posterior disc-osteophyte complex with un covertebral and facet joint arthrosis. Moderate spinal canal stenosi s. Moderate to severe bilateral neural foraminal stenosis. C6-C7: Mild bilateral neural foraminal stenosis secondary to diffuse disc bulging. The spinal canal appears grossly patent . C7-T1: Bilateral facet disease. No spinal canal or neural foraminal stenosis. Soft tissues: Unremarkable. Vasculature: Expected flow voids in the vertebra l arteries. IMPRESSION: Moderate to severe degenerative changes at C4-C5 and C5-C6. Eric Benoit MD On 02/28/2022 17:05:23; [id number] 2022-02-28 PROCEDURE INFORMATION: [facility] 15:56:00-00:00 Exam: MR Cervical Spine Without Contrast Exam date and time: 02/28/2022 3:55 PM Age: 56 years old Clinical indication: /acute left arm / leg hemip aresis - sparing face TECHNIQUE: Imaging protocol: Magnetic resonance imaging of the cervical spine without contrast. COMPARISON: BRAIN/NECK STROKE CTA 02/28/2022 12:31 PM FINDINGS: Bones/joints: The normal cervical lordosis is pr eserved. Trace retrolisthesis at C3-C4, C4-C5, and C5-C6. The vertebral body h eights are maintained. Degenerative endplate marrow signal changes are visualized. Spinal cord: Normal signal. C2-C3: Mild left neural foraminal stenosis secon bindu to and facet joint arthrosis. The spinal canal and right neural for amen are grossly patent. C3-C4: Broad-based disc bulging with uncovertebr al joint arthrosis. Mild to moderate spinal canal stenosis. Moderate bilater al neural foraminal stenosis. C4-C5: Posterior disc-osteophyte complex with un covertebral and facet joint arthrosis. Moderate to severe spinal canal steno sis, with the AP dimension of the spinal canal measuring 6.5 mm. Severe right and moderate left neural foraminal stenosis. C5-C6: Posterior disc-osteophyte complex with un covertebral and facet joint arthrosis. Moderate spinal canal stenosi s. Moderate to severe bilateral neural foraminal stenosis. C6-C7: Mild bilateral neural foraminal stenosis secondary to diffuse disc bulging. The spinal canal appears grossly patent . C7-T1: Bilateral facet disease. No spinal canal or neural foraminal stenosis. Soft tissues: Unremarkable. Vasculature: Expected flow voids in the vertebra l arteries. IMPRESSION: Moderate to severe degenerative changes at C4-C5 and C5-C6. Eric Benoit MD On 02/28/2022 17:05:23; [id number] 2022-02-28 PROCEDURE INFORMATION: [facility] 15:56:00-00:00 Exam: MR Cervical Spine Without Contrast Exam date and time: 02/28/2022 3:55 PM Age: 56 years old Clinical indication: /acute left arm / leg hemip aresis - sparing face TECHNIQUE: Imaging protocol: Magnetic resonance imaging of the cervical spine without contrast. COMPARISON: BRAIN/NECK STROKE CTA 02/28/2022 12:31 PM FINDINGS: Bones/joints: The normal cervical lordosis is pr eserved. Trace retrolisthesis at C3-C4, C4-C5, and C5-C6. The vertebral body h eights are maintained. Degenerative endplate marrow signal changes are visualized. Spinal cord: Normal signal. C2-C3: Mild left neural foraminal stenosis secon bindu to and facet joint arthrosis. The spinal canal and right neural for amen are grossly patent. C3-C4: Broad-based disc bulging with uncovertebr al joint arthrosis. Mild to moderate spinal canal stenosis. Moderate bilater al neural foraminal stenosis. C4-C5: Posterior disc-osteophyte complex with un covertebral and facet joint arthrosis. Moderate to severe spinal canal steno sis, with the AP dimension of the spinal canal measuring 6.5 mm. Severe right and moderate left neural foraminal stenosis. C5-C6: Posterior disc-osteophyte complex with un covertebral and facet joint arthrosis. Moderate spinal canal stenosi s. Moderate to severe bilateral neural foraminal stenosis. C6-C7: Mild bilateral neural foraminal stenosis secondary to diffuse disc bulging. The spinal canal appears grossly patent . C7-T1: Bilateral facet disease. No spinal canal or neural foraminal stenosis. Soft tissues: Unremarkable. Vasculature: Expected flow voids in the vertebra l arteries. IMPRESSION: Moderate to severe degenerative changes at C4-C5 and C5-C6. Eric Benoit MD On 02/28/2022 17:05:23; [id number] 2022-02-28 PROCEDURE INFORMATION: [facility] 15:56:00-00:00 Exam: MR Cervical Spine Without Contrast Exam date and time: 02/28/2022 3:55 PM Age: 56 years old Clinical indication: /acute left arm / leg hemip aresis - sparing face TECHNIQUE: Imaging protocol: Magnetic resonance imaging of the cervical spine without contrast. COMPARISON: BRAIN/NECK STROKE CTA 02/28/2022 12:31 PM FINDINGS: Bones/joints: The normal cervical lordosis is pr eserved. Trace retrolisthesis at C3-C4, C4-C5, and C5-C6. The vertebral body h eights are maintained. Degenerative endplate marrow signal changes are visualized. Spinal cord: Normal signal. C2-C3: Mild left neural foraminal stenosis secon bindu to and facet joint arthrosis. The spinal canal and right neural for amen are grossly patent. C3-C4: Broad-based disc bulging with uncovertebr al joint arthrosis. Mild to moderate spinal canal stenosis. Moderate bilater al neural foraminal stenosis. C4-C5: Posterior disc-osteophyte complex with un covertebral and facet joint arthrosis. Moderate to severe spinal canal steno sis, with the AP dimension of the spinal canal measuring 6.5 mm. Severe right and moderate left neural foraminal stenosis. C5-C6: Posterior disc-osteophyte complex with un covertebral and facet joint arthrosis. Moderate spinal canal stenosi s. Moderate to severe bilateral neural foraminal stenosis. C6-C7: Mild bilateral neural foraminal stenosis secondary to diffuse disc bulging. The spinal canal appears grossly patent . C7-T1: Bilateral facet disease. No spinal canal or neural foraminal stenosis. Soft tissues: Unremarkable. Vasculature: Expected flow voids in the vertebra l arteries. IMPRESSION: Moderate to severe degenerative changes at C4-C5 and C5-C6. Eric Benoit MD On 02/28/2022 17:05:23; [id number] 2022-02-28 PROCEDURE INFORMATION: [facility] 15:25:-: Exam: MR Head Without Contrast Exam date and time: 02/28/2022 3:36 PM Age: 56 years old Clinical indication: /acute left arm / leg hemip aresis - sparing face TECHNIQUE: Imaging protocol: Magnetic resonance imaging of the head without contrast. COMPARISON: CT BRAIN STROKE WO CONTRAST 02/28/2022 12:31 PM FINDINGS: Brain: No abnormal restricted diffusion or gradi ent susceptibility artifact. Few scattered areas of T2/FLAIR signal abnormali ty are present in the supratentorial white matter. Old infarcts are no sally in the basal ganglia bilaterally. Cerebral ventricles: Normal. No ventriculomegaly . Bones/joints: Unremarkable. Paranasal sinuses: Normal as visualized. No acut e sinusitis. Mastoid air cells: Normal as visualized. No mast oid effusion. Orbital cavities: Unremarkable. Soft tissues: Unremarkable. IMPRESSION: 1. No acute intracranial abnormality. 2. Prominent old infarcts in the basal ganglia bilaterally, possibly related to prior toxic-metabolic or hypoxic-ischemic insult . 3. Mild chronic microangiopathic changes. Eric Benoit MD On 02/28/2022 17:01:52; [id number] 2022-02-28 PROCEDURE INFORMATION: [facility] 15::-: Exam: MR Head Without Contrast Exam date and time: 02/28/2022 3:36 PM Age: 56 years old Clinical indication: /acute left arm / leg hemip aresis - sparing face TECHNIQUE: Imaging protocol: Magnetic resonance imaging of the head without contrast. COMPARISON: CT BRAIN STROKE WO CONTRAST 02/28/2022 12:31 PM FINDINGS: Brain: No abnormal restricted diffusion or gradi ent susceptibility artifact. Few scattered areas of T2/FLAIR signal abnormali ty are present in the supratentorial white matter. Old infarcts are no sally in the basal ganglia bilaterally. Cerebral ventricles: Normal. No ventriculomegaly . Bones/joints: Unremarkable. Paranasal sinuses: Normal as visualized. No acut e sinusitis. Mastoid air cells: Normal as visualized. No mast oid effusion. Orbital cavities: Unremarkable. Soft tissues: Unremarkable. IMPRESSION: 1. No acute intracranial abnormality. 2. Prominent old infarcts in the basal ganglia bilaterally, possibly related to prior toxic-metabolic or hypoxic-ischemic insult . 3. Mild chronic microangiopathic changes. Eric Benoit MD On 02/28/2022 17:01:52; [id number] 2022-02-28 PROCEDURE INFORMATION: [facility] 15:25:00-00:00 Exam: MR Head Without Contrast Exam date and time: 02/28/2022 3:36 PM Age: 56 years old Clinical indication: /acute left arm / leg hemip aresis - sparing face TECHNIQUE: Imaging protocol: Magnetic resonance imaging of the head without contrast. COMPARISON: CT BRAIN STROKE WO CONTRAST 02/28/2022 12:31 PM FINDINGS: Brain: No abnormal restricted diffusion or gradi ent susceptibility artifact. Few scattered areas of T2/FLAIR signal abnormali ty are present in the supratentorial white matter. Old infarcts are no sally in the basal ganglia bilaterally. Cerebral ventricles: Normal. No ventriculomegaly . Bones/joints: Unremarkable. Paranasal sinuses: Normal as visualized. No acut e sinusitis. Mastoid air cells: Normal as visualized. No mast oid effusion. Orbital cavities: Unremarkable. Soft tissues: Unremarkable. IMPRESSION: 1. No acute intracranial abnormality. 2. Prominent old infarcts in the basal ganglia bilaterally, possibly related to prior toxic-metabolic or hypoxic-ischemic insult . 3. Mild chronic microangiopathic changes. Eric Benoit MD On 02/28/2022 17:01:52; [id number] 2022-02-28 PROCEDURE INFORMATION: [facility] 15:25:00-00:00 Exam: MR Head Without Contrast Exam date and time: 02/28/2022 3:36 PM Age: 56 years old Clinical indication: /acute left arm / leg hemip aresis - sparing face TECHNIQUE: Imaging protocol: Magnetic resonance imaging of the head without contrast. COMPARISON: CT BRAIN STROKE WO CONTRAST 02/28/2022 12:31 PM FINDINGS: Brain: No abnormal restricted diffusion or gradi ent susceptibility artifact. Few scattered areas of T2/FLAIR signal abnormali ty are present in the supratentorial white matter. Old infarcts are no sally in the basal ganglia bilaterally. Cerebral ventricles: Normal. No ventriculomegaly . Bones/joints: Unremarkable. Paranasal sinuses: Normal as visualized. No acut e sinusitis. Mastoid air cells: Normal as visualized. No mast oid effusion. Orbital cavities: Unremarkable. Soft tissues: Unremarkable. IMPRESSION: 1. No acute intracranial abnormality. 2. Prominent old infarcts in the basal ganglia bilaterally, possibly related to prior toxic-metabolic or hypoxic-ischemic insult . 3. Mild chronic microangiopathic changes. Eric Benoit MD On 02/28/2022 17:01:52; [id number] 2022-02-28 PROCEDURE INFORMATION: [facility] 12:58:07-00:00 Exam: XR Chest Exam date and time: 02/28/2022 12:51 PM Age: 56 years old Clinical indication: /left side weakness TECHNIQUE: Imaging protocol: Radiologic exam of the chest. Views: 1 view. COMPARISON: BRAIN/NECK STROKE CTA 02/28/2022 12:31 PM FINDINGS: Tubes, catheters and devices: Dialysis catheter from the right has its tip in the region of the right atrium. Lungs: Appear free of acute disease. Pleural spaces: No pleural effusion. No pneumoth orax. Heart/Mediastinum: Heart size is within normal l imits. Vasculature is unremarkable. Bones/joints: Degenerative changes with bridging osteophytes noted in the thoracic spine. IMPRESSION: No acute cardiopulmonary findings. Nicolasa Spicer MD On 02/28/2022 13:30:43; [facility] [id number] 2022-02-28 PROCEDURE INFORMATION: [facility] 12:58:07-00:00 Exam: XR Chest Exam date and time: 02/28/2022 12:51 PM Age: 56 years old Clinical indication: /left side weakness TECHNIQUE: Imaging protocol: Radiologic exam of the chest. Views: 1 view. COMPARISON: BRAIN/NECK STROKE CTA 02/28/2022 12:31 PM FINDINGS: Tubes, catheters and devices: Dialysis catheter from the right has its tip in the region of the right atrium. Lungs: Appear free of acute disease. Pleural spaces: No pleural effusion. No pneumoth orax. Heart/Mediastinum: Heart size is within normal l imits. Vasculature is unremarkable. Bones/joints: Degenerative changes with bridging osteophytes noted in the thoracic spine. IMPRESSION: No acute cardiopulmonary findings. Nicolasa Spicer MD On 02/28/2022 13:30:43; [facility] [id number] 2022-02-28 PROCEDURE INFORMATION: [facility] 12:58:07-00:00 Exam: XR Chest Exam date and time: 02/28/2022 12:51 PM Age: 56 years old Clinical indication: /left side weakness TECHNIQUE: Imaging protocol: Radiologic exam of the chest. Views: 1 view. COMPARISON: BRAIN/NECK STROKE CTA 02/28/2022 12:31 PM FINDINGS: Tubes, catheters and devices: Dialysis catheter from the right has its tip in the region of the right atrium. Lungs: Appear free of acute disease. Pleural spaces: No pleural effusion. No pneumoth orax. Heart/Mediastinum: Heart size is within normal l imits. Vasculature is unremarkable. Bones/joints: Degenerative changes with bridging osteophytes noted in the thoracic spine. IMPRESSION: No acute cardiopulmonary findings. Nicolasa Spicer MD On 02/28/2022 13:30:43; [facility] [id number] 2022-02-28 PROCEDURE INFORMATION: [facility] 12:58:07-00:00 Exam: XR Chest Exam date and time: 02/28/2022 12:51 PM Age: 56 years old Clinical indication: /left side weakness TECHNIQUE: Imaging protocol: Radiologic exam of the chest. Views: 1 view. COMPARISON: BRAIN/NECK STROKE CTA 02/28/2022 12:31 PM FINDINGS: Tubes, catheters and devices: Dialysis catheter from the right has its tip in the region of the right atrium. Lungs: Appear free of acute disease. Pleural spaces: No pleural effusion. No pneumoth orax. Heart/Mediastinum: Heart size is within normal l imits. Vasculature is unremarkable. Bones/joints: Degenerative changes with bridging osteophytes noted in the thoracic spine. IMPRESSION: No acute cardiopulmonary findings. Nicolasa Spicer MD On 02/28/2022 13:30:43; [facility] [id number] 2022-02-28 Radiation Dose CTDIVOL = 0 (mGy): DLP = 135.9 (m Gy-cm) [facility] 12:29:53-00:00 PROCEDURE INFORMATION: Exam: CTA Head With Contrast, Arteriography Exam date and time: 02/28/2022 12:31 PM Age: 56 years old Clinical indication: Stroke- like symptoms; Additional info: /left side weakness TECHNIQUE: Imaging protocol: Computed tomographic angiograp hy of the head with contrast. Exam focused on the arteries. 3D rendering (Not supervised by radiologist): OK P and/or 3D reconstructed images were created by the technologist. Software analysis: LVO algorithm analysis was ap plied to this CTA data. AI analysis results were neithe r submitted to nor interpreted by this radiologist. Radiation optimization: All CT scans at this facility use at least one of these dose optimization techniques: automated exposure control; mA and/or kV adjustment per patient size (includes targeted e xams where dose is matched to clinical indication); or iterative reconstructio n. Contrast material: OMNI 350; Contrast volume: 85 ml; Contrast route: INTRAVENOUS (IV); COMPARISON: No relevant prior studies available. RADIATION DOSE METRICS: Total DLP (mGy-cm): 135.9 FINDINGS: CTA NECK: There is no stenosis at the origins of the supra -aortic great vessels. The right common carotid artery, carotid bifurca tion, and internal carotid artery are patent. There is no measurable stenos is of the right ICA. The left common carotid artery, carotid bifurcat ion, and internal carotid artery are patent. There is no measurable stenos is of the left ICA. The vertebral arteries are patent. CTA BRAIN: Internal carotid arteries: No occlusion or signi ficant stenosis of the bilateral internal carotid arteries. Anterior cerebral arteries: No occlusion or sign ificant stenosis of the anterior cerebral arteries. Middle cerebral arteries: No occlusion or significant stenosis of the bilateral middle cerebral arteries. Vertebrobasilar arteries: No occlusion or significant stenosis of the bilateral vertebral arteries or basilar artery. Posterior cerebral arteries: No occlusion or sig nificant stenosis of the posterior cerebral arteries. No aneurysms are identified. IMPRESSION: CTA NECK: 1. No occlusion or stenosis of the bilateral ext racranial internal carotid arteries. 2. The bilateral vertebral arteries are patent. CTA BRAIN: 3. No occlusion or significant stenosis of the c ircle of [place]. 4. No cerebral aneurysms are identified. REFERENCES: NASCET CRITERIA. The degree of stenosis in the cervical segment of the internal carotid artery is based on N ASCET criteria. Normal is no stenosis. Mild is less than 50% stenosis. Moderate is 50-69% st enosis. Severe is 70% to 99% stenosis. Total occlusion is no detectable patent lumen. PROCEDURE INFORMATION: Exam: CTA Neck With Contrast Exam date and time: 02/28/2022 12:31 PM Age: 56 years old Clinical indication: Stroke- like symptoms; Additional info: /left side weakness TECHNIQUE: Imaging protocol: Computed tomographic angiograp hy of the neck with contrast. 3D rendering (Not supervised by radiologist): OK P and/or 3D reconstructed images were created by the technologist. Software analysis: LVO algorithm analysis was ap plied to this CTA data. AI analysis results were jimeneze r submitted to nor interpreted by this radiologist. Radiation optimization: All CT scans at this facility use at least one of these dose optimization techniques: automated exposure control; mA and/or kV adjustment per patient size (includes targeted e xams where dose is matched to clinical indication); or iterative reconstructio n. Contrast material: OMNI 350; Contrast volume: 85 ml; Contrast route: INTRAVENOUS (IV); COMPARISON: No relevant prior studies available. RADIATION DOSE METRICS: Total DLP (mGy-cm): 0 FINDINGS: CTA NECK: There is no stenosis at the origins of the supra -aortic great vessels. The right common carotid artery, carotid bifurca tion, and internal carotid artery are patent. There is no measurable stenos is of the right ICA. The left common carotid artery, carotid bifurcat ion, and internal carotid artery are patent. There is no measurable stenos is of the left ICA. The vertebral arteries are patent. CTA BRAIN: Internal carotid arteries: No occlusion or signi ficant stenosis of the bilateral internal carotid arteries. Anterior cerebral arteries: No occlusion or sign ificant stenosis of the anterior cerebral arteries. Middle cerebral arteries: No occlusion or significant stenosis of the bilateral middle cerebral arteries. Vertebrobasilar arteries: No occlusion or significant stenosis of the bilateral vertebral arteries or basilar artery. Posterior cerebral arteries: No occlusion or sig nificant stenosis of the posterior cerebral arteries. No aneurysms are identified. IMPRESSION: CTA NECK: 1. No occlusion or stenosis of the bilateral ext racranial internal carotid arteries. 2. The bilateral vertebral arteries are patent. CTA BRAIN: 3. No occlusion or significant stenosis of the c ircle of [place]. 4. No cerebral aneurysms are identified. REFERENCES: NASCET CRITERIA. The degree of stenosis in the cervical segment of the internal carotid artery is based on N ASCET criteria. Normal is no stenosis. Mild is less than 50% stenosis. Moderate is 50-69% st enosis. Severe is 70% to 99% stenosis. Total occlusion is no detectable patent lumen. Matt Kohli MD On 02/28/2022 12:57:48; [facility]PR[facility] [id number] 2022-02-28 Radiation Dose CTDIVOL = 0 (mGy): DLP = 1045.5 ( mGy-cm) [facility] 12:29:53-00:00 ADDENDUM: The call to the ordering clinician was initiated on 02/28/2022 at 1248 hours. The findings were discussed with Dr. Whitt on 02/28/2022 at 1252 hours. Matt Kohli MD On 02/28/2022 12:53:06; [facility]PR[facility] [id number] Radiation Dose CTDIVOL = 0 (mGy): DLP = 1045.5 (mGy-cm) PROCEDURE INFORMATION: Exam: CT Head Without Contrast Exam date and time: 02/28/2022 12:31 PM Age: 56 years old Clinical indication: Stroke- like symptoms; Additional info: /left side weakness TECHNIQUE: Imaging protocol: Computed tomography of the hea d without contrast. Radiation optimization: All CT scans at this facility use at least one of these dose optimization techniques: automated exposure control; mA and/or kV adjustment per patient size (includes targeted e xams where dose is matched to clinical indication); or iterative reconstructio n. Other technique: STROKE PROTOCOL was implemented . COMPARISON: No relevant prior studies available. RADIATION DOSE METRICS: Total DLP (mGy-cm): 1045.5 FINDINGS: Brain: There are generalized involutional change s of the brain and microangiopathic changes of the white matter. Th ere are chronic lacunar infarcts of the bilateral ba marianela ganglia. There is no evidence of acute vascular insults, hemorrhage, space-occupying lesions, mi dline shift, or extra-axial fluid collections. Cerebral ventricles: No ventriculomegaly. Paranasal sinuses: There is no significant paranasal sinus opacification. There are no fluid levels. Mastoid air cells: The mastoid air cells and mid dle ear cavities are grossly clear. Bones/joints: The calvarium is intact. Soft tissues: Unremarkable. IMPRESSION: 1. No acute intracranial abnormalities are visib le. 2. Chronic lacunar infarcts of the bilateral bas al ganglia are noted. ASSESSMENT: ASPECTS ([place] Stroke Program Early CT Score) is 10. Matt Kohli MD On 02/28/2022 12:48:58; [facility] [id number] 2022-02-28 Radiation Dose CTDIVOL = 0 (mGy): DLP = 135.9 (m Gy-cm) [facility] 12:29:53-00:00 PROCEDURE INFORMATION: Exam: CTA Head With Contrast, Arteriography Exam date and time: 02/28/2022 12:31 PM Age: 56 years old Clinical indication: Stroke- like symptoms; Additional info: /left side weakness TECHNIQUE: Imaging protocol: Computed tomographic angiograp hy of the head with contrast. Exam focused on the arteries. 3D rendering (Not supervised by radiologist): OK P and/or 3D reconstructed images were created by the technologist. Software analysis: LVO algorithm analysis was ap plied to this CTA data. AI analysis results were neithe r submitted to nor interpreted by this radiologist. Radiation optimization: All CT scans at this facility use at least one of these dose optimization techniques: automated exposure control; mA and/or kV adjustment per patient size (includes targeted e xams where dose is matched to clinical indication); or iterative reconstructio n. Contrast material: OMNI 350; Contrast volume: 85 ml; Contrast route: INTRAVENOUS (IV); COMPARISON: No relevant prior studies available. RADIATION DOSE METRICS: Total DLP (mGy-cm): 135.9 FINDINGS: CTA NECK: There is no stenosis at the origins of the supra -aortic great vessels. The right common carotid artery, carotid bifurca tion, and internal carotid artery are patent. There is no measurable stenos is of the right ICA. The left common carotid artery, carotid bifurcat ion, and internal carotid artery are patent. There is no measurable stenos is of the left ICA. The vertebral arteries are patent. CTA BRAIN: Internal carotid arteries: No occlusion or signi ficant stenosis of the bilateral internal carotid arteries. Anterior cerebral arteries: No occlusion or sign ificant stenosis of the anterior cerebral arteries. Middle cerebral arteries: No occlusion or significant stenosis of the bilateral middle cerebral arteries. Vertebrobasilar arteries: No occlusion or significant stenosis of the bilateral vertebral arteries or basilar artery. Posterior cerebral arteries: No occlusion or sig nificant stenosis of the posterior cerebral arteries. No aneurysms are identified. IMPRESSION: CTA NECK: 1. No occlusion or stenosis of the bilateral ext racranial internal carotid arteries. 2. The bilateral vertebral arteries are patent. CTA BRAIN: 3. No occlusion or significant stenosis of the c ircle of [place]. 4. No cerebral aneurysms are identified. REFERENCES: NASCET CRITERIA. The degree of stenosis in the cervical segment of the internal carotid artery is based on N ASCET criteria. Normal is no stenosis. Mild is less than 50% stenosis. Moderate is 50-69% st enosis. Severe is 70% to 99% stenosis. Total occlusion is no detectable patent lumen. PROCEDURE INFORMATION: Exam: CTA Neck With Contrast Exam date and time: 02/28/2022 12:31 PM Age: 56 years old Clinical indication: Stroke- like symptoms; Additional info: /left side weakness TECHNIQUE: Imaging protocol: Computed tomographic angiograp hy of the neck with contrast. 3D rendering (Not supervised by radiologist): OK P and/or 3D reconstructed images were created by the technologist. Software analysis: LVO algorithm analysis was ap plied to this CTA data. AI analysis results were neithe r submitted to nor interpreted by this radiologist. Radiation optimization: All CT scans at this facility use at least one of these dose optimization techniques: automated exposure control; mA and/or kV adjustment per patient size (includes targeted e xams where dose is matched to clinical indication); or iterative reconstructio n. Contrast material: OMNI 350; Contrast volume: 85 ml; Contrast route: INTRAVENOUS (IV); COMPARISON: No relevant prior studies available. RADIATION DOSE METRICS: Total DLP (mGy-cm): 0 FINDINGS: CTA NECK: There is no stenosis at the origins of the supra -aortic great vessels. The right common carotid artery, carotid bifurca tion, and internal carotid artery are patent. There is no measurable stenos is of the right ICA. The left common carotid artery, carotid bifurcat ion, and internal carotid artery are patent. There is no measurable stenos is of the left ICA. The vertebral arteries are patent. CTA BRAIN: Internal carotid arteries: No occlusion or signi ficant stenosis of the bilateral internal carotid arteries. Anterior cerebral arteries: No occlusion or sign ificant stenosis of the anterior cerebral arteries. Middle cerebral arteries: No occlusion or significant stenosis of the bilateral middle cerebral arteries. Vertebrobasilar arteries: No occlusion or significant stenosis of the bilateral vertebral arteries or basilar artery. Posterior cerebral arteries: No occlusion or sig nificant stenosis of the posterior cerebral arteries. No aneurysms are identified. IMPRESSION: CTA NECK: 1. No occlusion or stenosis of the bilateral ext racranial internal carotid arteries. 2. The bilateral vertebral arteries are patent. CTA BRAIN: 3. No occlusion or significant stenosis of the c ircle of [place]. 4. No cerebral aneurysms are identified. REFERENCES: NASCET CRITERIA. The degree of stenosis in the cervical segment of the internal carotid artery is based on N ASCET criteria. Normal is no stenosis. Mild is less than 50% stenosis. Moderate is 50-69% st enosis. Severe is 70% to 99% stenosis. Total occlusion is no detectable patent lumen. Matt Kohli MD On 02/28/2022 12:57:48; VR-[facility]PR[facility] [id number] 2022-02-28 Radiation Dose CTDIVOL = 0 (mGy): DLP = 1045.5 ( mGy-cm) [facility] 12:29:53-00:00 ADDENDUM: The call to the ordering clinician was initiated on 02/28/2022 at 1248 hours. The findings were discussed with Dr. Whitt on 02/28/2022 at 1252 hours. Matt Kohli MD On 02/28/2022 12:53:06; [facility] [id number] Radiation Dose CTDIVOL = 0 (mGy): DLP = 1045.5 (mGy-cm) PROCEDURE INFORMATION: Exam: CT Head Without Contrast Exam date and time: 02/28/2022 12:31 PM Age: 56 years old Clinical indication: Stroke- like symptoms; Additional info: /left side weakness TECHNIQUE: Imaging protocol: Computed tomography of the hea d without contrast. Radiation optimization: All CT scans at this facility use at least one of these dose optimization techniques: automated exposure control; mA and/or kV adjustment per patient size (includes targeted e xams where dose is matched to clinical indication); or iterative reconstructio n. Other technique: STROKE PROTOCOL was implemented . COMPARISON: No relevant prior studies available. RADIATION DOSE METRICS: Total DLP (mGy-cm): 1045.5 FINDINGS: Brain: There are generalized involutional change s of the brain and microangiopathic changes of the white matter. Th ere are chronic lacunar infarcts of the bilateral ba marianela ganglia. There is no evidence of acute vascular insults, hemorrhage, space-occupying lesions, mi dline shift, or extra-axial fluid collections. Cerebral ventricles: No ventriculomegaly. Paranasal sinuses: There is no significant paranasal sinus opacification. There are no fluid levels. Mastoid air cells: The mastoid air cells and mid dle ear cavities are grossly clear. Bones/joints: The calvarium is intact. Soft tissues: Unremarkable. IMPRESSION: 1. No acute intracranial abnormalities are visib le. 2. Chronic lacunar infarcts of the bilateral bas al ganglia are noted. ASSESSMENT: ASPECTS ([place] Stroke Program Early CT Score) is 10. Matt Kohli MD On 02/28/2022 12:48:58; [facility] [id number] 2022-02-28 Radiation Dose CTDIVOL = 0 (mGy): DLP = 135.9 (m Gy-cm) [facility] 12:29:53-00:00 PROCEDURE INFORMATION: Exam: CTA Head With Contrast, Arteriography Exam date and time: 02/28/2022 12:31 PM Age: 56 years old Clinical indication: Stroke- like symptoms; Additional info: /left side weakness TECHNIQUE: Imaging protocol: Computed tomographic angiograp hy of the head with contrast. Exam focused on the arteries. 3D rendering (Not supervised by radiologist): OK P and/or 3D reconstructed images were created by the technologist. Software analysis: LVO algorithm analysis was ap plied to this CTA data. AI analysis results were nejde r submitted to nor interpreted by this radiologist. Radiation optimization: All CT scans at this facility use at least one of these dose optimization techniques: automated exposure control; mA and/or kV adjustment per patient size (includes targeted e xams where dose is matched to clinical indication); or iterative reconstructio n. Contrast material: OMNI 350; Contrast volume: 85 ml; Contrast route: INTRAVENOUS (IV); COMPARISON: No relevant prior studies available. RADIATION DOSE METRICS: Total DLP (mGy-cm): 135.9 FINDINGS: CTA NECK: There is no stenosis at the origins of the supra -aortic great vessels. The right common carotid artery, carotid bifurca tion, and internal carotid artery are patent. There is no measurable stenos is of the right ICA. The left common carotid artery, carotid bifurcat ion, and internal carotid artery are patent. There is no measurable stenos is of the left ICA. The vertebral arteries are patent. CTA BRAIN: Internal carotid arteries: No occlusion or signi ficant stenosis of the bilateral internal carotid arteries. Anterior cerebral arteries: No occlusion or sign ificant stenosis of the anterior cerebral arteries. Middle cerebral arteries: No occlusion or significant stenosis of the bilateral middle cerebral arteries. Vertebrobasilar arteries: No occlusion or significant stenosis of the bilateral vertebral arteries or basilar artery. Posterior cerebral arteries: No occlusion or sig nificant stenosis of the posterior cerebral arteries. No aneurysms are identified. IMPRESSION: CTA NECK: 1. No occlusion or stenosis of the bilateral ext racranial internal carotid arteries. 2. The bilateral vertebral arteries are patent. CTA BRAIN: 3. No occlusion or significant stenosis of the c ircle of [place]. 4. No cerebral aneurysms are identified. REFERENCES: NASCET CRITERIA. The degree of stenosis in the cervical segment of the internal carotid artery is based on N ASCET criteria. Normal is no stenosis. Mild is less than 50% stenosis. Moderate is 50-69% st enosis. Severe is 70% to 99% stenosis. Total occlusion is no detectable patent lumen. PROCEDURE INFORMATION: Exam: CTA Neck With Contrast Exam date and time: 02/28/2022 12:31 PM Age: 56 years old Clinical indication: Stroke- like symptoms; Additional info: /left side weakness TECHNIQUE: Imaging protocol: Computed tomographic angiograp hy of the neck with contrast. 3D rendering (Not supervised by radiologist): OK P and/or 3D reconstructed images were created by the technologist. Software analysis: LVO algorithm analysis was ap plied to this CTA data. AI analysis results were shanda brown submitted to nor interpreted by this radiologist. Radiation optimization: All CT scans at this facility use at least one of these dose optimization techniques: automated exposure control; mA and/or kV adjustment per patient size (includes targeted e xams where dose is matched to clinical indication); or iterative reconstructio n. Contrast material: OMNI 350; Contrast volume: 85 ml; Contrast route: INTRAVENOUS (IV); COMPARISON: No relevant prior studies available. RADIATION DOSE METRICS: Total DLP (mGy-cm): 0 FINDINGS: CTA NECK: There is no stenosis at the origins of the supra -aortic great vessels. The right common carotid artery, carotid bifurca tion, and internal carotid artery are patent. There is no measurable stenos is of the right ICA. The left common carotid artery, carotid bifurcat ion, and internal carotid artery are patent. There is no measurable stenos is of the left ICA. The vertebral arteries are patent. CTA BRAIN: Internal carotid arteries: No occlusion or signi ficant stenosis of the bilateral internal carotid arteries. Anterior cerebral arteries: No occlusion or sign ificant stenosis of the anterior cerebral arteries. Middle cerebral arteries: No occlusion or significant stenosis of the bilateral middle cerebral arteries. Vertebrobasilar arteries: No occlusion or significant stenosis of the bilateral vertebral arteries or basilar artery. Posterior cerebral arteries: No occlusion or sig nificant stenosis of the posterior cerebral arteries. No aneurysms are identified. IMPRESSION: CTA NECK: 1. No occlusion or stenosis of the bilateral ext racranial internal carotid arteries. 2. The bilateral vertebral arteries are patent. CTA BRAIN: 3. No occlusion or significant stenosis of the c ircle of [place]. 4. No cerebral aneurysms are identified. REFERENCES: NASCET CRITERIA. The degree of stenosis in the cervical segment of the internal carotid artery is based on N ASCET criteria. Normal is no stenosis. Mild is less than 50% stenosis. Moderate is 50-69% st enosis. Severe is 70% to 99% stenosis. Total occlusion is no detectable patent lumen. Matt Kohli MD On 02/28/2022 12:57:48; VR-RAN [id number] 2022-02-28 Radiation Dose CTDIVOL = 0 (mGy): DLP = 1045.5 ( mGy-cm) [facility] 12:29:53-00:00 ADDENDUM: The call to the ordering clinician was initiated on 02/28/2022 at 1248 hours. The findings were discussed with Dr. Whitt on 02/28/2022 at 1252 hours. Matt Kohli MD On 02/28/2022 12:53:06; VR-BPMIKAEL [id number] Radiation Dose CTDIVOL = 0 (mGy): DLP = 1045.5 (mGy-cm) PROCEDURE INFORMATION: Exam: CT Head Without Contrast Exam date and time: 02/28/2022 12:31 PM Age: 56 years old Clinical indication: Stroke- like symptoms; Additional info: /left side weakness TECHNIQUE: Imaging protocol: Computed tomography of the hea d without contrast. Radiation optimization: All CT scans at this facility use at least one of these dose optimization techniques: automated exposure control; mA and/or kV adjustment per patient size (includes targeted e xams where dose is matched to clinical indication); or iterative reconstructio n. Other technique: STROKE PROTOCOL was implemented . COMPARISON: No relevant prior studies available. RADIATION DOSE METRICS: Total DLP (mGy-cm): 1045.5 FINDINGS: Brain: There are generalized involutional change s of the brain and microangiopathic changes of the white matter. Th ere are chronic lacunar infarcts of the bilateral ba marianela ganglia. There is no evidence of acute vascular insults, hemorrhage, space-occupying lesions, mi dline shift, or extra-axial fluid collections. Cerebral ventricles: No ventriculomegaly. Paranasal sinuses: There is no significant paranasal sinus opacification. There are no fluid levels. Mastoid air cells: The mastoid air cells and mid dle ear cavities are grossly clear. Bones/joints: The calvarium is intact. Soft tissues: Unremarkable. IMPRESSION: 1. No acute intracranial abnormalities are visib le. 2. Chronic lacunar infarcts of the bilateral bas al ganglia are noted. ASSESSMENT: ASPECTS ([place] Stroke Program Early CT Score) is 10. Matt Kohli MD On 02/28/2022 12:48:58; VR-BPRAN [id number] 2022-02-28 Radiation Dose CTDIVOL = 0 (mGy): DLP = 135.9 (m Gy-cm) [facility] 12:29:53-00:00 PROCEDURE INFORMATION: Exam: CTA Head With Contrast, Arteriography Exam date and time: 02/28/2022 12:31 PM Age: 56 years old Clinical indication: Stroke- like symptoms; Additional info: /left side weakness TECHNIQUE: Imaging protocol: Computed tomographic angiograp hy of the head with contrast. Exam focused on the arteries. 3D rendering (Not supervised by radiologist): OK P and/or 3D reconstructed images were created by the technologist. Software analysis: LVO algorithm analysis was ap plied to this CTA data. AI analysis results were neithe r submitted to nor interpreted by this radiologist. Radiation optimization: All CT scans at this facility use at least one of these dose optimization techniques: automated exposure control; mA and/or kV adjustment per patient size (includes targeted e xams where dose is matched to clinical indication); or iterative reconstructio n. Contrast material: OMNI 350; Contrast volume: 85 ml; Contrast route: INTRAVENOUS (IV); COMPARISON: No relevant prior studies available. RADIATION DOSE METRICS: Total DLP (mGy-cm): 135.9 FINDINGS: CTA NECK: There is no stenosis at the origins of the supra -aortic great vessels. The right common carotid artery, carotid bifurca tion, and internal carotid artery are patent. There is no measurable stenos is of the right ICA. The left common carotid artery, carotid bifurcat ion, and internal carotid artery are patent. There is no measurable stenos is of the left ICA. The vertebral arteries are patent. CTA BRAIN: Internal carotid arteries: No occlusion or signi ficant stenosis of the bilateral internal carotid arteries. Anterior cerebral arteries: No occlusion or sign ificant stenosis of the anterior cerebral arteries. Middle cerebral arteries: No occlusion or significant stenosis of the bilateral middle cerebral arteries. Vertebrobasilar arteries: No occlusion or significant stenosis of the bilateral vertebral arteries or basilar artery. Posterior cerebral arteries: No occlusion or sig nificant stenosis of the posterior cerebral arteries. No aneurysms are identified. IMPRESSION: CTA NECK: 1. No occlusion or stenosis of the bilateral ext racranial internal carotid arteries. 2. The bilateral vertebral arteries are patent. CTA BRAIN: 3. No occlusion or significant stenosis of the c ircle of [place]. 4. No cerebral aneurysms are identified. REFERENCES: NASCET CRITERIA. The degree of stenosis in the cervical segment of the internal carotid artery is based on N ASCET criteria. Normal is no stenosis. Mild is less than 50% stenosis. Moderate is 50-69% st enosis. Severe is 70% to 99% stenosis. Total occlusion is no detectable patent lumen. PROCEDURE INFORMATION: Exam: CTA Neck With Contrast Exam date and time: 02/28/2022 12:31 PM Age: 56 years old Clinical indication: Stroke- like symptoms; Additional info: /left side weakness TECHNIQUE: Imaging protocol: Computed tomographic angiograp hy of the neck with contrast. 3D rendering (Not supervised by radiologist): OK P and/or 3D reconstructed images were created by the technologist. Software analysis: LVO algorithm analysis was ap plied to this CTA data. AI analysis results were shanda r submitted to nor interpreted by this radiologist. Radiation optimization: All CT scans at this facility use at least one of these dose optimization techniques: automated exposure control; mA and/or kV adjustment per patient size (includes targeted e xams where dose is matched to clinical indication); or iterative reconstructio n. Contrast material: OMNI 350; Contrast volume: 85 ml; Contrast route: INTRAVENOUS (IV); COMPARISON: No relevant prior studies available. RADIATION DOSE METRICS: Total DLP (mGy-cm): 0 FINDINGS: CTA NECK: There is no stenosis at the origins of the supra -aortic great vessels. The right common carotid artery, carotid bifurca tion, and internal carotid artery are patent. There is no measurable stenos is of the right ICA. The left common carotid artery, carotid bifurcat ion, and internal carotid artery are patent. There is no measurable stenos is of the left ICA. The vertebral arteries are patent. CTA BRAIN: Internal carotid arteries: No occlusion or signi ficant stenosis of the bilateral internal carotid arteries. Anterior cerebral arteries: No occlusion or sign ificant stenosis of the anterior cerebral arteries. Middle cerebral arteries: No occlusion or significant stenosis of the bilateral middle cerebral arteries. Vertebrobasilar arteries: No occlusion or significant stenosis of the bilateral vertebral arteries or basilar artery. Posterior cerebral arteries: No occlusion or sig nificant stenosis of the posterior cerebral arteries. No aneurysms are identified. IMPRESSION: CTA NECK: 1. No occlusion or stenosis of the bilateral ext racranial internal carotid arteries. 2. The bilateral vertebral arteries are patent. CTA BRAIN: 3. No occlusion or significant stenosis of the c ircle of [place]. 4. No cerebral aneurysms are identified. REFERENCES: NASCET CRITERIA. The degree of stenosis in the cervical segment of the internal carotid artery is based on N ASCET criteria. Normal is no stenosis. Mild is less than 50% stenosis. Moderate is 50-69% st enosis. Severe is 70% to 99% stenosis. Total occlusion is no detectable patent lumen. Matt Kohli MD On 02/28/2022 12:57:48; VR-BPMIKAEL [id number] 2022-02-28 Radiation Dose CTDIVOL = 0 (mGy): DLP = 1045.5 ( mGy-cm) [facility] 12:29:53-00:00 ADDENDUM: The call to the ordering clinician was initiated on 02/28/2022 at 1248 hours. The findings were discussed with Dr. Whitt on 02/28/2022 at 1252 hours. Matt Kohli MD On 02/28/2022 12:53:06; REDBPMIKAEL [id number] Radiation Dose CTDIVOL = 0 (mGy): DLP = 1045.5 (mGy-cm) PROCEDURE INFORMATION: Exam: CT Head Without Contrast Exam date and time: 02/28/2022 12:31 PM Age: 56 years old Clinical indication: Stroke- like symptoms; Additional info: /left side weakness TECHNIQUE: Imaging protocol: Computed tomography of the hea d without contrast. Radiation optimization: All CT scans at this facility use at least one of these dose optimization techniques: automated exposure control; mA and/or kV adjustment per patient size (includes targeted e xams where dose is matched to clinical indication); or iterative reconstructio n. Other technique: STROKE PROTOCOL was implemented . COMPARISON: No relevant prior studies available. RADIATION DOSE METRICS: Total DLP (mGy-cm): 1045.5 FINDINGS: Brain: There are generalized involutional change s of the brain and microangiopathic changes of the white matter. Th ere are chronic lacunar infarcts of the bilateral ba marianela ganglia. There is no evidence of acute vascular insults, hemorrhage, space-occupying lesions, mi dline shift, or extra-axial fluid collections. Cerebral ventricles: No ventriculomegaly. Paranasal sinuses: There is no significant paranasal sinus opacification. There are no fluid levels. Mastoid air cells: The mastoid air cells and mid dle ear cavities are grossly clear. Bones/joints: The calvarium is intact. Soft tissues: Unremarkable. IMPRESSION: 1. No acute intracranial abnormalities are visib le. 2. Chronic lacunar infarcts of the bilateral bas al ganglia are noted. ASSESSMENT: ASPECTS ([place] Stroke Program Early CT Score) is 10. Matt Kohli MD On 02/28/2022 12:48:58; VR-BPRAN [id number] 2021-08-19 GAIL CUNHA [facility] 11:32:40-00:00 OPERATIVE/PROCEDURE REPORT MAKI STRATTON FACILITY: [facility] Billing #: [id number] Room: [address] [place] [address] MR #: [id number] : 1965 DATE OF PROCEDURE: 08/18/2021 SURGEON: Gail Cunha MD PROCEDURE: Electroencephalogram. SUBJECTIVE: Ms. Coronado is a 56-year-old female, undergoing EEG to look for any seizure foci. TECHNIQUE: This EEG was acquired by [facility] 10/20 electrode placement system. DESCRIPTION OF PROCEDURE: The best background ac tivity is close to 7 hertz recorded during quite wakefulne ss. Activity looks disorganized but symmetric. Drowsiness was manifested by background fragmentation. Deeper stages of sleep were not recorded. No clear evidence of any focal slowing or epileptiform transient noticed. No electrographi c seizures were recorded. Photic stimulation produces a poo r driving response. INTERPRETATION: This is an abnormal EEG showing disorganized activity of 7 hertz with no evidence o f any epileptiform discharges noticed. CLINICAL CORRELATION: This is an abnormal EEG co nsistent with mild nonspecific diffuse brain dysfunction. Medi cation side effect cannot be entirely ruled out. Clinical co rrelation is recommended. MFK/MODL /[id number] 2020-03-10 PROCEDURE INFORMATION: ISRA [place] 17:30:00-00:00 Exam: MR Head Without Contrast Exam date and time: 03/10/2020 5:16 PM Age: 54 years old Clinical indication: Secondary parkinsonism, uns pecified; Additional info: G21.9 secondary parkinsonism, unspecified/g21.9 secondary parkinsonism, unspecified TECHNIQUE: Imaging protocol: MR of the head without contras t. 3D rendering (Not supervised by radiologist): OK P and/or 3D reconstructed images were created by the technologist. COMPARISON: No relevant prior studies available. FINDINGS: Brain: There is no acute cortical infarct, paren chymal hemorrhage or an intra-axial mass. Sellar and parasellar structur es are normal. There is no cerebellar tonsillar ectopia. There is e ncephalomalacia of the globus pallidus and bilateral putamen. There is minimal punctate areas of subcortical gliosis. The caudate nucleus is normal. The thalami are normal. There is normal flow from the 4th portions of both vertebral arteries , the basilar artery and intracranial carotid arteries. The cochlear, vestibule and 7th and 8th nerve fa scicles are normal. Cerebral ventricles: Normal. No ventriculomegaly . Bones/joints: Unremarkable. Paranasal sinuses: Normal as visualized. No acute sinusitis. There is a minute submucosal/Thornwaldt cyst in the nasopharynx. Mastoid air cells: Normal as visualized. No mast oid effusion. Orbits: Unremarkable. Soft tissues: Unremarkable. IMPRESSION: Significant encephalomalacia of the bilateral gl obus pallidus/putamen is present. The caudate nuclei and thalami are norm al. There is no acute cortical infarct, parenchymal hemorrhage or an intra-axial mass. Ravinder Salazar MD On 03/11/2020 07:20:17; VR-BB [id number] 2020-03-10 PROCEDURE INFORMATION: ISRA diaz 17:30:00-00:00 Exam: MR Head Without Contrast Exam date and time: 03/10/2020 5:16 PM Age: 54 years old Clinical indication: Secondary parkinsonism, uns pecified; Additional info: G21.9 secondary parkinsonism, unspecified/g21.9 secondary parkinsonism, unspecified TECHNIQUE: Imaging protocol: MR of the head without contras t. 3D rendering (Not supervised by radiologist): OK P and/or 3D reconstructed images were created by the technologist. COMPARISON: No relevant prior studies available. FINDINGS: Brain: There is no acute cortical infarct, paren chymal hemorrhage or an intra-axial mass. Sellar and parasellar structur es are normal. There is no cerebellar tonsillar ectopia. There is e ncephalomalacia of the globus pallidus and bilateral putamen. There is minimal punctate areas of subcortical gliosis. The caudate nucleus is normal. The thalami are normal. There is normal flow from the 4th portions of both vertebral arteries , the basilar artery and intracranial carotid arteries. The cochlear, vestibule and 7th and 8th nerve fa scicles are normal. Cerebral ventricles: Normal. No ventriculomegaly . Bones/joints: Unremarkable. Paranasal sinuses: Normal as visualized. No acute sinusitis. There is a minute submucosal/Thornwaldt cyst in the nasopharynx. Mastoid air cells: Normal as visualized. No mast oid effusion. Orbits: Unremarkable. Soft tissues: Unremarkable. IMPRESSION: Significant encephalomalacia of the bilateral gl obus pallidus/putamen is present. The caudate nuclei and thalami are norm al. There is no acute cortical infarct, parenchymal hemorrhage or an intra-axial mass. Ravinder Salazar MD On 03/11/2020 07:20:17; VR-BB [id number] 2020-03-10 PROCEDURE INFORMATION: ISRA diaz 17:30:00-00:00 Exam: MR Head Without Contrast Exam date and time: 03/10/2020 5:16 PM Age: 54 years old Clinical indication: Secondary parkinsonism, uns pecified; Additional info: G21.9 secondary parkinsonism, unspecified/g21.9 secondary parkinsonism, unspecified TECHNIQUE: Imaging protocol: MR of the head without contras t. 3D rendering (Not supervised by radiologist): OK P and/or 3D reconstructed images were created by the technologist. COMPARISON: No relevant prior studies available. FINDINGS: Brain: There is no acute cortical infarct, paren chymal hemorrhage or an intra-axial mass. Sellar and parasellar structur es are normal. There is no cerebellar tonsillar ectopia. There is e ncephalomalacia of the globus pallidus and bilateral putamen. There is minimal punctate areas of subcortical gliosis. The caudate nucleus is normal. The thalami are normal. There is normal flow from the 4th portions of both vertebral arteries , the basilar artery and intracranial carotid arteries. The cochlear, vestibule and 7th and 8th nerve fa scicles are normal. Cerebral ventricles: Normal. No ventriculomegaly . Bones/joints: Unremarkable. Paranasal sinuses: Normal as visualized. No acute sinusitis. There is a minute submucosal/Thornwaldt cyst in the nasopharynx. Mastoid air cells: Normal as visualized. No mast oid effusion. Orbits: Unremarkable. Soft tissues: Unremarkable. IMPRESSION: Significant encephalomalacia of the bilateral gl obus pallidus/putamen is present. The caudate nuclei and thalami are norm al. There is no acute cortical infarct, parenchymal hemorrhage or an intra-axial mass. Ravinder Salazar MD On 03/11/2020 07:20:17; DARION [id number] 2020-03-10 PROCEDURE INFORMATION: TROY diaz 17:30:00-00:00 Exam: MR Head Without Contrast Exam date and time: 03/10/2020 5:16 PM Age: 54 years old Clinical indication: Secondary parkinsonism, uns pecified; Additional info: G21.9 secondary parkinsonism, unspecified/g21.9 secondary parkinsonism, unspecified TECHNIQUE: Imaging protocol: MR of the head without contras t. 3D rendering (Not supervised by radiologist): OK P and/or 3D reconstructed images were created by the technologist. COMPARISON: No relevant prior studies available. FINDINGS: Brain: There is no acute cortical infarct, paren chymal hemorrhage or an intra-axial mass. Sellar and parasellar structur es are normal. There is no cerebellar tonsillar ectopia. There is e ncephalomalacia of the globus pallidus and bilateral putamen. There is minimal punctate areas of subcortical gliosis. The caudate nucleus is normal. The thalami are normal. There is normal flow from the 4th portions of both vertebral arteries , the basilar artery and intracranial carotid arteries. The cochlear, vestibule and 7th and 8th nerve fa scicles are normal. Cerebral ventricles: Normal. No ventriculomegaly . Bones/joints: Unremarkable. Paranasal sinuses: Normal as visualized. No acute sinusitis. There is a minute submucosal/Thornwaldt cyst in the nasopharynx. Mastoid air cells: Normal as visualized. No mast oid effusion. Orbits: Unremarkable. Soft tissues: Unremarkable. IMPRESSION: Significant encephalomalacia of the bilateral gl obus pallidus/putamen is present. The caudate nuclei and thalami are norm al. There is no acute cortical infarct, parenchymal hemorrhage or an intra-axial mass. Ravinder Salazar MD On 03/11/2020 07:20:17; DARION [id number]
[2022-09-29] MEDS ORDERED: D10W 250 ML IV ONE ×3 (12:25→19:16)
--- NOTE | 2022-09-29 12:31 | RAD REPORT ---
EXAM DESCRIPTION: CT - Ct Stroke Brain Wo Cont - 09/29/2022 12:23 pm CLINICAL HISTORY: STROKE ALERT COMPARISON: Head Brain Wo Cont dated 08/04/2020; Ct Stroke Brain Wo Cont dated 08/18/2018 TECHNIQUE: All CT scans are performed using dose optimization technique as appropriate and may inclu de automated exposure control or mA/KV adjustment according to patient size. FINDINGS: No intracranial hemorrhage, hydrocephalus or extra-axial fluid collection.No areas of brai n edema or evidence of midline shift. Encephalomalacia in the right and left basal ganglia which skip esponds to the globus pallidus and putamen is again identified. The paranasal sinuses and mastoids are clear. The calvarium is intact. IMPRESSION: No acute intracranial abnormality. Hypoattenuating structures corresponding with both t he right and left putamen and globus pallidus may reflect sequelae of prior infarct. The finding is u nchanged since at least 08/04/20. Conveyed to Dr. Serna by Dr. Marie at 1225 on 09/29/22
--- NOTE | 2022-09-29 12:36 | RAD REPORT ---
EXAM DESCRIPTION: CTAbdomen Pelvis Wo Contrast - 09/29/2022 12:24 pm CLINICAL HISTORY: weakness, diarrhea COMPARISON: Abdomen Pelvis Wo Contrast dated 03/21/2022; Abdomen Pelvis Wo Contrast dated 022; Abdomen Pelvis Wo Contrast dated 05/22/2021 TECHNIQUE: CT of the abdomen and pelvis was performed. All CT scans are performed using dose optimization technique as appropriate and may include automated exposure control or mA/KV adjustment according to patient size. FINDINGS: Lower chest: No acute abnormality. Liver: No acute abnormality or suspicious lesions. Biliary: Cholelithiasis. No CT evidence of cholecystitis. Stomach: No significant focal abnormality. Duodenum: No significant focal abnormality. Pancreas: No significant abnormality. Spleen: No significant abnormality. Adrenal: No suspicious lesions. Kidney/ureter: No hydronephrosis. Bilateral nonobstructing renal calculi. Both kidneys are atrophic. The left kidney has a 6 mm stone left renal pelvis. Probable small renal cysts. Retroperitoneum: No retroperitoneal adenopathy. Vascular: Atherosclerosis. No aneurysm is identified. Bowel: Normal appendix. No bowel obstruction. Moderate proximal colonic stool.. Peritoneum: No ascites or free air. Bladder: Grossly unremarkable. Reproductive: Hysterectomy. Bones: No acute fracture. Other: n/a IMPRESSION: 1. No definite acute findings within the abdomen or pelvis. 2. Cholelithiasis without CT evidence acute cholecystitis. 3. Bilateral nephrolithiasis. 6 mm stone at the left renal pelvis but no hydronephrosis. Probable gladys ateral renal cysts.
[2022-09-29 12:51] LABS: Troponin High Sensitivity 25.1 pg/mL (<58.9)
[2022-09-29 13:23] LABS: Anisocytosis 1+; Blood Morphology Comment NOTED (NOT SEEN); Macrocytosis 1+; Platelet Estimate DECR
--- NOTE | 2022-09-29 13:44 | EDPHYS ---
Physician Documentation [facility] Name: Maki Tabares Age: 57 yrs Sex: Female : 1965 Arrival Date: 09/29/2022 Time: 11:44 Bed 8 Private MD: ED Physician Meño Serna HPI: 09/29 11:59 This 57 yrs old Black Female presents to ER via EMS with complaints of General Weakness.rn 11:59 The patient presents with decreased mental status, decreased responsiveness. Onset: The rn symptoms/episode began/occurred at an unknown time. Possible causes: unknown. Current symptoms: In the emergency department the patient's symptoms have improved. The patient has experienced similar episodes in the past. The patient has not recently seen a physician. 11:59 EMS reports dropped off at dialysis and staff noted AMS, decreased responsiveness, and rn generalized weakness. Staff and family member told EMS that she has hx of stroke with weakness but worse than baseline. Unknown last known normal. Sister states not notified by assisted living staff of any changes. Patient reports diarrhea for 1 month and states started to feel weak yesterday, reports generalized weakness and fatigue. Reports "feels sleepy". Glucose was ok for EMS. No trauma or head injury. Previous visits show hx of CVA and aphasia, as well as multiple visits for generalized weakness and metabolic problems. sister not here to verify information, waiting on her arrival. Patient cannot tell me of abrupt change. . Historical: - Allergies: 11:52 crawfish; aa5 11:52 SHELLFISH; aa5 - PMHx: 11:52 Diabetes - NIDDM; Dialysis; peritoneal; Hyperlipidemia; Hypertension; Parkinsons; aa5 Seizure; CVA; Myocardial infarction; - PSHx: 11:52 Total abdominal hysterectomy; Dialysis catheter to chest; aa5 - Immunization history:: Adult Immunizations unknown. - Family history:: not pertinent. - Social history:: Smoking status: unknown. - Hospitalizations: : No recent hospitalization is reported. - History obtained from: EMS. ROS: 12:05 Constitutional: Negative for fever, chills, and weight loss, Neck: Negative for injury, rn pain, and swelling, Cardiovascular: Negative for chest pain, palpitations, and edema, Respiratory: Negative for shortness of breath, cough, wheezing, and pleuritic chest pain, Abdomen/GI: Negative for abdominal pain, nausea, vomiting and constipation, + diarrhea Back: Negative for injury and pain, MS/Extremity: Negative for injury and deformity, Skin: Negative for injury, rash, and discoloration, Neuro: Negative for headache, numbness, tingling, and seizure. Exam: 12:05 Constitutional: This is a well developed, well nourished patient who is awake, slow to rn respond, whispering answers Head/Face: Normocephalic, atraumatic. Cardiovascular: Regular rate and rhythm. No pulse deficits. Respiratory: No increased work of breathing, no retractions or nasal flaring. Abdomen/GI: Soft, non-tender Skin: Warm, dry MS/ Extremity: Pulses equal, no cyanosis. Neurovascular intact. Full, normal range of motion. Equal circumference. Neuro: Awake, GCS 15, oriented to person, place, and situation. + mild right lower facial droop and slurred speech. Motor strength 3+/5 in all extremities, equal weakness throughout. Sensory grossly intact. 14:11 ECG was reviewed by the Attending Physician. rn Vital Signs: 11:50 BP 115 / 79; Pulse 64; Resp 16 S; Temp 98(TE); Pulse Ox 98% on R/A; aa5 12:25 BP 146 / 87; Pulse 58; Resp 15 S; Pulse Ox 98% on R/A; aa5 13:03 BP 135 / 66; Pulse 49; Resp 15 S; Pulse Ox 100% on R/A; aa5 13:42 BP 126 / 71; Pulse 54; Resp 16 S; Pulse Ox 100% on R/A; aa5 17:00 BP 135 / 77; Pulse 59; Resp 16; Pulse Ox 100% on R/A; cm10 19:00 BP 126 / 86; Pulse 66; Resp 14; Temp 98; Pulse Ox 100% on R/A; Pain 0/10; pf1 19:30 BP 135 / 81; Pulse 72; Resp 14; Pulse Ox 100% on R/A; Pain 0/10; pf1 19:00 Pain Scale: Adult pf1 19:30 Pain Scale: Adult pf1 MDM: 11:53 Patient medically screened. rn 12:15 ED course: 2 sisters arrived, they state that their other sister visited patient in rn facility yesterday, noticed she was slumped over, weak, and not acting right even yesterday. Sisters also report intermittent difficulty with speech, weakness, and not eating/drinking. Given this information, if CVA, patient not in TNKase window given already noted to have weakness and AMS since yesterday. Sisters also report that at times she is weak and whispers like she is doing today. . 13:42 Differential Diagnosis: CVA, electrolyte abnormality, hypoglycemia, intracranial bleed, rn seizure, TIA, volume depletion. Data reviewed: vital signs, nurses notes, lab test result(s), EKG, radiologic studies, CT scan, and as a result, I will admit patient. Consideration of Admission/Observation Patient was admitted/placed on observation. Escalation of care including admission/observation considered. Counseling: I had a detailed discussion with the patient and/or guardian regarding: the historical points, exam findings, and any diagnostic results supporting the discharge/admit diagnosis, lab results, radiology results, the need to transfer to another facility. Response to treatment: There is no appreciated change of the patient's symptoms at this time. ED course: Pt still somnolent and not completely back to baseline per third sister, ct head no acute findings. Given increase in weakness and slurred speech/facial droop, will transfer to [facility] for further w/u and neuro consult/MRI. NO neuro available here. . 09/29 11:54 Order name: Basic Metabolic Panel; Complete Time: 13:12 09/29 11:54 Order name: CBC with Diff; Complete Time: 13:26 09/29 11:54 Order name: High Sensitivity Troponin; Complete Time: 13:12 09/29 12:01 Order name: Glucose, Ancillary Testing; Complete Time: 12:34 EDUT 09/29 12:23 Order name: Manual Differential; Complete Time: 13:26 EDUT 09/29 13:39 Order name: Glucose, Ancillary Testing; Complete Time: 13:44 EDUT 09/29 17:13 Order name: Glucose, Ancillary Testing; Complete Time: 17:22 EDUT 09/29 17:54 Order name: Glucose, Ancillary Testing EDUT 09/29 19:05 Order name: Glucose, Ancillary Testing EDUT 09/29 19:49 Order name: Glucose, Ancillary Testing EDUT 09/29 11:54 Order name: CT Stroke Brain w/o Contrast; Complete Time: 12:34 09/29 11:54 Order name: Stroke CXR 1 View; Complete Time: 12:34 rn 09/29 11:54 Order name: CT Abd/Pelvis - Without Contrast; Complete Time: 12:38 rn 09/29 11:54 Order name: EKG; Complete Time: 11:55 rn 09/29 11:54 Order name: Accucheck; Complete Time: 12:03 rn 09/29 11:54 Order name: Cardiac monitoring; Complete Time: 12:03 rn 09/29 11:54 Order name: EKG - Nurse/Tech; Complete Time: 12:03 rn 09/29 11:54 Order name: IV Saline Lock; Complete Time: 12:03 rn 09/29 11:54 Order name: Labs collected and sent; Complete Time: 12:12 rn 09/29 11:54 Order name: NPO; Complete Time: 12:04 rn 09/29 11:54 Order name: O2 Per Protocol; Complete Time: 12:04 rn 09/29 11:54 Order name: O2 Sat Monitoring; Complete Time: 12:04 rn 09/29 11:54 Order name: Stroke Swallow Screen; Complete Time: 13:57 rn EC:11 Rate is 57 beats/min. Rhythm is regular. QRS [place] is Normal. [place] interval is normal. QRS rn interval is normal. QT interval is normal. No Q waves. T waves are Normal. No ST changes noted. Clinical impression: Sinus bradycardia. Interpreted by me. Reviewed by me. Administered Medications: 12:36 Drug: D10 in Water IVP 250 ml Route: IVP; Site: right hand; aa5 13:58 CANCELLED (Physician Discretion): Aspirin PO 325 mg PO once aa5 13:58 Drug: foLIC Acid IVPB 1 mg Route: IVPB; Site: right hand; aa5 16:54 Follow up: IV Status: Completed infusion cm10 13:58 Drug: Aspirin PO Chewable Tablet 324 mg Route: PO; aa5 15:02 Follow up: Response: No adverse reaction aa5 17:03 Drug: D10 in Water IVP 250 ml Route: IVP; Site: right hand; cm10 18:16 Follow up: Response: No adverse reaction; Blood sugar is elevated cm10 17:20 Drug: Solu-CORTEF IVP 50 mg Route: IVP; Site: right hand; cm10 18:15 Follow up: Response: No adverse reaction cm10 19:33 Drug: Solu-CORTEF IVP 50 mg Route: IVP; Site: right hand; pf1 19:35 Drug: Glucagon IVP 1 mg Route: IVP; Site: right hand; pf1 19:35 Drug: D10 in Water IVP 250 ml Route: IVP; Site: right hand; pf1 Point of Care Testing: Blood Glucose: 13:27 Blood Glucose: 134 mg/dL; aa5 Ranges: Critical Glucose Levels:Adult <50 mg/dl or >400 mg/dl <40 mg/dl or >180 mg/dl Disposition Summary: 09/29/22 13:43 Transfer Ordered Transfer Location: [facility] rn Reason: Higher level of care rn Condition: Stable rn Problem: new rn Symptoms: are unchanged rn Accepting Physician: (09/29/22 20:00) pf1 Diagnosis - Altered mental status, unspecified rn - Weakness rn - Slurred speech rn Forms: - Medication Reconciliation Form rn - SBAR form rn Signatures: Dispatcher [employer] EDMS Meño Serna MD MD rn Calderon, Audri RN RN aa5 Jen Ames RN RN pf1 Ame Porter, RN RN cm10 Corrections: (The following items were deleted from the chart) 13:58 13:44 Aspirin PO 325 mg PO once ordered. rn aa5 13:58 13:57 Aspirin PO 325 mg PO once ordered. aa5 aa5 14:45 11:54 PROTIME (+INR)+COAG.LAB.BRZ ordered. EDMS EDMS 14:45 11:54 PTT, ACTIVATED+COAG.LAB.BRZ ordered. EDMS EDMS 20:00 13:43 rn pf1
--- NOTE | 2022-09-29 13:44 | ER ---
Nurse's Notes [facility] Name: Maki Tabares Age: 57 yrs Sex: Female : 1965 Arrival Date: 09/29/2022 Time: 11:44 Bed 8 Private MD: Diagnosis: Altered mental status, unspecified;Weakness;Slurred speech Presentation: 09/29 11:50 Chief complaint: EMS states: was at the dialysis center and staff reported that pt was aa5 weak, lethargic, and slumped over in the chair. EMS reports FSBG upon arrival was 74. Pt reports having diarrhea x 1 month. Coronavirus screen: At this time, the client does not indicate any symptoms associated with coronavirus-19. Ebola Screen: Patient denies travel to an Ebola-affected area in the 21 days before illness onset. Initial Sepsis Screen: Does the patient meet any 2 criteria? No. Patient's initial sepsis screen is negative. Does the patient have a suspected source of infection? No. Patient's initial sepsis screen is negative. Risk Assessment: Do you want to hurt yourself or someone else? Patient reports no desire to harm self or others. Onset of symptoms was September 29, 2022. 11:50 Acuity: TAVIA 2 aa5 11:50 Method Of Arrival: EMS: [facility] aa5 Historical: - Allergies: 11:52 crawfish; aa5 11:52 SHELLFISH; aa5 - PMHx: 11:52 Diabetes - NIDDM; Dialysis; peritoneal; Hyperlipidemia; Hypertension; Parkinsons; aa5 Seizure; CVA; Myocardial infarction; - PSHx: 11:52 Total abdominal hysterectomy; Dialysis catheter to chest; aa5 - Immunization history:: Adult Immunizations unknown. - Family history:: not pertinent. - Social history:: Smoking status: unknown. - Hospitalizations: : No recent hospitalization is reported. - History obtained from: EMS. Screenin:10 Abuse screen: Denies threats or abuse. Nutritional screening: unable to assess . aa5 Tuberculosis screening: No symptoms or risk factors identified. 19:00 [facility] ED Fall Risk Assessment (Adult) History of falling in the last 3 months, pf1 including since admission No falls in past 3 months (0 pts) Confusion or Disorientation No (0 pts) Intoxicated or Sedated No (0 pts) Impaired Gait Yes (1 pt) Mobility Assist Device Used Yes (1 pt) Altered Elimination Yes (1 pt) Score/Fall Risk Level 3 or more points = High Risk Oriented to surroundings, Maintained a safe environment, Educated pt \\T\\ family on fall prevention, incl call for assistance when getting out of bed, Assessed \\T\\ reinforced patient's understanding of fall precautions, Provided non-skid footwear, Hourly rounding (assess needs \\T\\ fall precautionary measures) done, Used ambulatory aids as needed (educated on \\T\\ assisted with), Used gait belt as appropriate Implemented a Fall Risk Plan of Care, Apply high fall risk patient identification: yellow non skid footwear/ fall signage, Remained w/in arm's length of patient and in sight while toileting, Offered frequent toileting (1:1 observation), Remained with patient while ambulating, Utilized family, sitter, or virtual manager mental health as indicated. Assessment: 11:50 General: Appears uncomfortable, Behavior is cooperative, drowsy. Pain: Denies pain. aa5 Neuro: Level of Consciousness is obeys commands, lethargic, Oriented to person, place, time, situation, Hims Clerk are weak bilaterally Moves all extremities. Weakness in bilateral arm(s) leg(s) Speech is slow and very soft, difficult to understand. . Facial droop on right, Pupils are PERRLA, Denies paresthesias numbness. Cardiovascular: Heart tones S1 S2 present Rhythm is regular. Respiratory: Airway is patent Respiratory effort is even, unlabored, shallow, Respiratory pattern is regular, symmetrical. GI: Abdomen is flat, non-distended, Bowel sounds present X 4 quads. hyperactive in right upper quadrant, left upper quadrant, right lower quadrant and left lower quadrant Abd is soft X 4 quads Reports diarrhea, Patient currently denies nausea, vomiting. : No signs and/or symptoms were reported regarding the genitourinary system. EENT: No signs and/or symptoms were reported regarding the EENT system. Derm: Skin is dry, Skin is normal, Skin temperature is warm. Musculoskeletal: Swelling to left lower leg, bruising that is dark purple noted to left garcia. 12:10 Reassessment: Patient is alert, oriented x 3, equal unlabored respirations, skin aa5 warm/dry/pink. Pt's sisters at bedside speaking to MD. When asked about pt's baseline pt's sisters state "sometimes she slumps over and is very weak, she whispers at times and mumbles". 12:20 Reassessment: Pt currently in CT . aa5 13:40 Reassessment: MD at bedside discussing possible transfer to [facility], pt's POA aa5 agrees with POC.. 13:58 Reassessment: Pt awake and alert, A\\T\\O x 4 at this time. Pt tolerated 4 oz of water well aa5 before ASA administration, aspirin was crushed for administration. . 14:10 Reassessment: Pt cleaned of bowel incontinence, small amount of brown stool noted, aa5 clean brief applied. . 14:20 Neuro: Level of Consciousness is obeys commands, lethargic, Oriented to person, place, aa5 time, situation, Moves all extremities. Weakness in bilateral arm(s) leg(s) Speech slow and very soft, difficult to understand. Facial droop on right, Pupils are PERRLA. Respiratory: Airway is patent Respiratory effort is even, unlabored, Respiratory pattern is regular, symmetrical. Derm: Skin is dry, Skin is normal, Skin temperature is warm. 15:24 Reassessment: Patient is alert, oriented x 3, equal unlabored respirations, skin cm10 warm/dry/pink. Assumed care of patient at 1500. Pt currently sleeping, respirations even and unlabored. Pt remains on continuous cardiac monitoring. Pt's daughters at bedside. Updated patient on plan of care and on transfer process. Call light in reach. No needs at this time. Care ongoing. 16:53 Reassessment: No changes from previously documented assessment. Patient is alert, cm10 oriented x 3, equal unlabored respirations, skin warm/dry/pink. 17:03 Reassessment: Blood sugar rechecked at this time. Pts BGL was found to be 48, pt cm10 awakens when spoken to. Provider made aware and verbal orders for D10 received. Medication infusing at this time. 17:41 Reassessment: Attempting to call report. Nurse not available and to call back in 15 cm10 minutes. 19:20 General: Appears in no apparent distress. comfortable, well groomed. pf1 19:20 Pain: Denies pain. Neuro: Level of Consciousness is awake, alert, obeys commands, pf1 Oriented to Appropriate for age. Cardiovascular: Capillary refill < 3 seconds Patient's skin is warm and dry. Respiratory: Airway is patent Respiratory effort is even, unlabored, Respiratory pattern is regular, symmetrical, Breath sounds are clear bilaterally. GI: Abdomen is flat, non-distended, Bowel sounds present X 4 quads. Abd is soft Abd is non tender X 4 quads Reports diarrhea, Patient currently denies nausea, vomiting. : dialysis catheter to right anterior chest wall Reports. : No deficits noted. No signs and/or symptoms were reported regarding the genitourinary system. EENT: No deficits noted. No signs and/or symptoms were reported regarding the EENT system. Derm: Skin is dry. Musculoskeletal: Circulation, motion, and sensation intact. Capillary refill < 3 seconds. 19:56 Reassessment: Patient report given to [facility] with [facility]. Patient being pf1 transferred to [facility] at this time.. Vital Signs: 11:50 BP 115 / 79; Pulse 64; Resp 16 S; Temp 98(TE); Pulse Ox 98% on R/A; aa5 12:25 BP 146 / 87; Pulse 58; Resp 15 S; Pulse Ox 98% on R/A; aa5 13:03 BP 135 / 66; Pulse 49; Resp 15 S; Pulse Ox 100% on R/A; aa5 13:42 BP 126 / 71; Pulse 54; Resp 16 S; Pulse Ox 100% on R/A; aa5 17:00 BP 135 / 77; Pulse 59; Resp 16; Pulse Ox 100% on R/A; cm10 19:00 BP 126 / 86; Pulse 66; Resp 14; Temp 98; Pulse Ox 100% on R/A; Pain 0/10; pf1 19:30 BP 135 / 81; Pulse 72; Resp 14; Pulse Ox 100% on R/A; Pain 0/10; pf1 19:00 Pain Scale: Adult pf1 19:30 Pain Scale: Adult pf1 ED Course: 11:50 Patient arrived in ED. aa5 11:50 Arm band placed on Patient placed in an exam room, on a stretcher. aa5 11:52 Triage completed. aa5 11:53 Meño Serna MD is Attending Physician. rn 11:53 Sruthi Eden, GABRIELA is Primary Nurse. aa5 12:02 Diet: Patient is NPO. mm9 12:02 Patient has correct armband on for positive identification. Bed in low position. Call mm9 light in reach. Side rails up X 1. Warm blanket given. Client placed on continuous cardiac and pulse oximetry monitoring. NIBP monitoring applied. classroom monitor on. Pulse ox on. NIBP on. 12:10 Stroke CXR 1 View In Process Unspecified. EDMS 12:15 Initial lab(s) drawn, by me, sent to lab. Missed attempt(s): 22 gauge in right aa5 antecubital area. Bleeding controlled, band aid applied, catheter tip intact. 12:15 Maintain EMS IV. Dressing intact. Good blood return noted. Site clean \\T\\ dry. Gauge \\T\\ aa 5 site: 22 G to R hand. 12:24 CT Stroke Brain w/o Contrast In Process Unspecified. EDMS 12:26 CT Abd/Pelvis - Without Contrast In Process Unspecified. EDMS 14:58 Report given to GABRIELA Mccloud. aa5 15:06 Primary Nurse role handed off by Sruthi Eden RN cm10 15:06 Ame Porter RN is Primary Nurse. cm10 18:16 Report given to GABRIELA Peres at [facility]. cm10 19:42 No provider procedures requiring assistance completed. pf1 19:59 Patient transferred, IV remains in place. pf1 Administered Medications: 12:36 Drug: D10 in Water IVP 250 ml Route: IVP; Site: right hand; aa5 13:58 CANCELLED (Physician Discretion): Aspirin PO 325 mg PO once aa5 13:58 Drug: foLIC Acid IVPB 1 mg Route: IVPB; Site: right hand; aa5 16:54 Follow up: IV Status: Completed infusion cm10 13:58 Drug: Aspirin PO Chewable Tablet 324 mg Route: PO; aa5 15:02 Follow up: Response: No adverse reaction aa5 17:03 Drug: D10 in Water IVP 250 ml Route: IVP; Site: right hand; cm10 18:16 Follow up: Response: No adverse reaction; Blood sugar is elevated cm10 17:20 Drug: Solu-CORTEF IVP 50 mg Route: IVP; Site: right hand; cm10 18:15 Follow up: Response: No adverse reaction cm10 19:33 Drug: Solu-CORTEF IVP 50 mg Route: IVP; Site: right hand; pf1 19:35 Drug: Glucagon IVP 1 mg Route: IVP; Site: right hand; pf1 19:35 Drug: D10 in Water IVP 250 ml Route: IVP; Site: right hand; pf1 Medication: 20:00 VIS not applicable for this client. pf1 Point of Care Testing: Blood Glucose: 13:27 Blood Glucose: 134 mg/dL; aa5 Ranges: Outcome: 13:43 ER care complete, transfer ordered by . rn 19:59 Transferred by ground EMS to [facility], Transfer form completed. pf1 X-rays sent w/ patient. Note: patient report given by GABRIELA Mccloud dayshift to receiving nurse. 19:59 Condition: stable 19:59 Instructed on the need for transfer, Demonstrated understanding of instructions. 20:00 Patient left the ED. pf1 Signatures: Dispatcher [employer] EDMS Meño Serna MD MD rn Calderon, Audri, RN RN aa5 Melina Porter mm9 Jen Ames RN RN pf1 Ame Porter RN RN cm10 Corrections: (The following items were deleted from the chart) 12:24 11:50 Chief complaint: EMS states: was at the dialysis center and staff reported that aa5 pt was weak and slumped over in the chair. EMS reports FSBG upon arrival was 74. Pt reports having diarrhea x 1 month. aa5 12:28 11:50 Neuro: Level of Consciousness is obeys commands, lethargic, Oriented to person, aa5 place, time, situation, Hims Clerk are weak bilaterally Moves all extremities. Weakness in bilateral arm(s) leg(s) Speech is slow and very soft, difficult to understand. . Facial symmetry appears normal, Pupils are PERRLA, Denies paresthesias numbness aa5 13:43 12:10 Nutritional screening: No deficits noted. aa5 aa5 14:13 14:00 Reassessment: Pt awake and alert, A\\T\\O x 4 at this time. Pt tolerated 4 oz of aa5 water well before ASA administration, aspirin was crushed for administration. . aa5
[2022-09-29] MEDS ORDERED: FOLIC ACID 5 MG/ML VIAL ONE (13:59)
[2022-09-29] MEDS ORDERED: ASPIRIN 81 MG CHEWABLE TABLET ONE (13:59)
[2022-09-29] MEDS ORDERED: HYDROCORTISONE SUC 100 MG INJ ONE ×2 (17:18→19:16)
[2022-09-29] MEDS ORDERED: GLUCAGON 1 MG/VIAL ONE (19:16)
[2022-09-29 20:14] VITALS: TEMP 98
[2022-09-29 20:17] VITALS: O2SAT 100
[2022-09-29 20:24] VITALS: BP 135/81
--- NOTE | 2022-09-30 16:18 | EKG ---
Test Date: 2022-09-29 Test Time: 12:02:11 Candy Forming Machine Operator: CHANTEL MEASUREMENT RESULTS: Intervals: Rate: 57 AR: 144 QRSD: 98 QT: 444 QTc: 432 [place]: P: 57 AR: 144 QRS: 45 T: 121 INTERPRETIVE STATEMENTS: Sinus bradycardia Nonspecific ST and T wave abnormality Abnormal ECG Compared to ECG 02/15/2022 08:06:27 ST (T wave) deviation now present Sinus rhythm no longer present Myocardial infarct finding no longer present Electronically Signed On 09-30-22 16:16:49 CDT by Macario Garcia
== END 2022-09-29 20:00 | disposition short-term general hospital (02) ==
LOC: ER 11:44
DX: R41.82 Altered mental status, unspecified (principal); R53.1 Weakness; R47.81 Slurred speech; G20 Parkinson's disease; I10 Essential (primary) hypertension; E11.9 Type 2 diabetes mellitus without complications; Z99.2 Dependence on renal dialysis; Z91.013 Allergy to seafood
CPT/HCPCS: 96365; 93005; 85025; 80048; 36415; 82947 ×7; 84484; 74176; 70450; 71045; 96375; 99285; 96366; J1610; J1720 ×2

== ENCOUNTER 2022-10-16 10:59 | Inpatient (IN) | payer OTHER ==
[2022-10-16 11:30] LABS: Absolute Lymphocytes (CBC) 1.4 K/uL (0.7-4.9); Hematocrit 27.3 % (36.0-45.0); Lymphocytes % 37.8 % (15.3-44.8); MCV 102.2 fL (80-100); MPV 9.2 fL (7.6-11.3); RBC Red Blood Cell Count 2.67 M/uL (3.86-4.86)
--- NOTE | 2022-10-16 11:44 | RAD REPORT ---
EXAM DESCRIPTION: CT - Ct Stroke Brain Wo Cont - 10/16/2022 11:12 am CLINICAL HISTORY: STROKE ALERT Headache, drowsiness, CVA symptomology COMPARISON: Ct Stroke Brain Wo Cont dated 09/29/2022; Head Brain Wo Cont dated 08/04/2020 TECHNIQUE: All CT scans are performed using dose optimization technique as appropriate and may inclu de automated exposure control or mA/KV adjustment according to patient size. FINDINGS: No intracranial hemorrhage, hydrocephalus or extra-axial fluid collection.Hypoattenuating deep white matter structures, unchanged. Generalized brain atrophy is seen.No areas of brain edema or evidence of midline shift. The paranasal sinuses and mastoids are clear. The calvarium is intact. IMPRESSION: No acute intracranial abnormality. The findings were discussed with Dr. Garcia in the emergency room on 10/16/2022 at 11:12 a.m. by gerard mckeon.
--- OUTSIDE RECORDS SUMMARY | 2022-10-16 11:52 | XMS REPORT | Continuity of Care Document ---
:1965 Author Organization [facility] t Address [address] [place] [address] [address] [place] [address] Care Team Providers Name Role Phone KENIJ SR Primary Care Physician Unavailable LITA PENN Attending Clinician Unavailable Royce Jay Anavella Attending Clinician Unapatti ilable [id number] Attending Clinician Unavailable RIAZ BAIG Attending Clinician Unavailable JOSE MAGALLANES Attending Clinician Unavailable Jose Rey Attending Clinician Unavailable ISAAC MEEHAN Attending Clinician Unavailable ETHAN MORALES Attending Clinician Unavailable LILIAM MEZA Attending Clinician Unavailable KASEY WHITT Attending Clinician Unavailable Kasey Whitt Attending Clinician Pradeep Bermeo DO Attending Clinician Duglas MCKEON, Gail Avalos Attending Clinician [phone] CLARA ADAMS Attending Clinician Unavailable Marva Adams Attending Clinician Juarez Morales Attending Clinician JUAREZ MORALES Attending Clinician Unavailable DIMITRY LORA Attending Clinician Unavailable Dimitry Lora Attending Clinician CHARLES TORRES Attending Clinician Unavailable Jann MCKEON, Gallito Mccarthy Attending Clinician [phone] [facility]_J Attending Clinician Unavailable Estelle Schneider Attending Clinician [phone] Sergio Fuentes Attending Clinician [phone] ARUN SUERO Attending Clinician Unavailable Maria De Leon MD Attending Clinician Unavailable Elmer Acevedo MD, Vangie Aldridge Attending Clinici an Ilya MCKEON, Wilmer Kothari Attending Clinician [phone] Deja MCKEON, Irlanda Mayen Attending Clinician [phone] Kellie MCKEON, Kashmir Attending Clinician Ralph MCKEON, Brett Shay Attending Clinician [phone] Raul MKCEON, Wendy David Attending Clinician [phone] BRETT SHAH Attending Clinician Unavailable Kiarra Rangel MD Attending Clinician Chen Dsouza CRNA Attending Clinician Adalgisa MCKEON, Dl Attending Clinician Nancy MCKEON, Jacques Maradiaga Attending Clinician Bronson Michel CRNA Attending Clinician + [phone] Isaac Meehan MD Attending Clinician Eyal OCHOA, Angel Attending Clinician Unavailable Jessa OCHOA, Heather Attending Clinician Unavailable Chrissie Spence RN Attending Clinician Unavailable Dianelys Mitchell RN Attending Clinician Unavailable Vilma Galdamez Attending Clinician VILMA GALDAMEZ Attending Clinician Unavailable Doctor Unassigned, [place] Attending Clinician Unavailable Brown Lees MD Attending Clinician NICOL GALAN Attending Clinician Unavailable RANDOLPH NOGUEIRA Attending Clinician Unavailable MATHEW CRUM Attending Clinician Unavailable LUANA NEGRETE Admitting Clinician Unavailable Trish Jay Anav Admitting Clinician Unavailable [id number] Admitting Clinician Unavailable RIAZ BAIG Admitting Clinician Unavailable ISAAC MEEHAN Admitting Clinician Unavailable GAIL CUNHA Admitting Clinician Unavailable SUHAS BLOCK Admitting Clinician Unavailable Suhas Block Admitting Clinician _[facility]J Admitting Clinician Unavailable MARIA DE LEON Admitting Clinician Unavailable LOBO LIANG Admitting Clinician Unavailable AHSAN VARGAS Admitting Clinician Unavailable RANDOLPH NOGUEIRA Admitting Clinician Unavailable Payers Payer Name Policy Type Policy Number Effective Date Expiration Date S isidro [employer] [id number] 2022 00:00:00 [place] [id number] 2019 00:00:00 [facility] [id number] 2022 00:00:00 [facility] [id number] [facility] [id number] [facility] [id number] 2017 MCR REPL 00:00:00 [facility] - [id number] [facility] (MEDICARE REPLACEMENT/ADVAN TAGE - PPO) MEDICAID-ID [id number] (MEDICAID) [facility] [id number] 2018 [employer] 00:00:00 [facility] Problems Condition Condition Condition Status Onset Resolution Last Treating Co mments Source Name Details Category Date Date Treatment Clinician Date Hematoma Hematoma Diagnosis Active 2022-07-18 Memoria of left of left 07-15 01:39:17 l lower leg lower leg 00:00: Kristie marques Active 00 07/15/2022 Diagnosis 07/18/2022 [facility] Traumatic Traumatic Diagnosis Active 2022-07-18 Memoria hematoma hematoma 07-15 01:39:17 l (disorder) (disorder) 00:00: He rmann Active 00 07/15/2022 Diagnosis 07/18/2022 [facility] LEFT LOWER LEFT Diagnosis Active 2022-07-20 Memoria LEG PAIN LOWER LEG 07-15 21:56:00 l PAIN 00:00: [place] Active 00 07/15/2022 [facility] TIA TIA Disease Active Methodi (transient (transient 06-14 st ischemic ischemic 00:00: Hospit a attack) attack) 00 l HBP HBP Diagnosis Active 2022-06-06 Mem oria Active 06-06 18:15:00 l 06/06/2022 13:30: Juan Manuel ware [address] End stage End stage Diagnosis Active 2022-06-09 Memoria renal renal 06-06 05:09:41 l failure on failure on 00:00: He elizabethann dialysis dialysis 00 (disorder) (disorder) Active 06/06/2022 Diagnosis 06/09/2022 [facility] SEIZURE SEIZURE Diagnosis Active 2022-03-28 Memoria Active 03-28 19:15:00 l 03/28/2022 00:00: Juan Manuel ware [address] NEUROLOGIC NEUROLOGI Diagnosis Active 2021-032022-07-12 Memoria DEFICUIT C DEFICUIT 05-01 07:56:00 l DUE TO DUE TO 00:00: [place] ACUTE ACUTE 00 ISCHEMI ISCHEMI Active 02/28/2022 [facility] POSS POSS Diagnosis Active 2021-032022-02-28 Mem oria STROKE STROKE 2 13:24:00 l Active 00:00: [place] 02/28/[address] [place] [address] Type II Type II Problem Active [facility] [...] Disease Recurre [facility] epilepticu epilepticu nce 5- Poly kes s s 00:00: Medical 00 Center Syncope Syncope Disease Active [facility] Nausea and Nausea and Disease Active [facility] T vomiting vomiting 5-10 Health 00:00: 00 Oropharyng Oropharyng Disease Active [facility] eal eal 2-01 Health dysphagia dysphagia 00:00: 00 Peritoneal Peritoneal Disease Recurre [facility] dialysis dialysis nce [facility] catheter catheter 00:00: Medica l dysfunctio dysfunctio 00 Ce nter n, initial n, initial encounter encounter G21.9 - G21.9 - Diagnosis Active 2019-032020-03-10 Memoria SECONDARY SECONDARY 2-16 17:16:00 l PARKINSONI PARKINSONI 00:01: He rmann SM, UNSPEC SM, UNSPEC 00 Active 03/10/2020 OPID Bradley Basal Basal Disease Recurre Last [facility] ganglia ganglia nce 8-11 Assessmen jelly degenerati degenerati 00:00: t & Plan: Medical on on [facility] g of this note might be [...] to transplan t during our visit today. Acute Acute Disease Active [facility] encephalop encephalop 8-05 Poly kes athy athy 00:00: Medical 00 Center TIA TIA Disease Active [facility] (transient (transient 5- Poly kes ischemic ischemic 00:00: Medica l attack) attack) 00 Center Slurred Slurred Disease Active [facility] speech speech 5-26 [facility] Center Pre-transp Pre-transp Disease Active 2017-[address] lant lant 0-23 Belen Toro evaluation evaluation 00:00: t & Plan: Medical for for 00 [facility] chronic chronic g of this kidney kidney note disease disease might be different from the original. She is an acceptabl e candidate for kidney transplan t pending further testing and formal review at [facility]. ESRD (end ESRD (end Disease Active 2017-[address] [facility] renal 00:[facility]: t & Plan: Medical disease) disease) [address] g of this note might be different from the original. 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 She has been on dialysis since 2017. She does have a potential donor at this time. ESRD (end ESRD (end Disease Recurre 2017-[address] [facility] 00:00: t & Plan: Medical disease) disease) 00 [facility] Krista [address] on on g of this [...] ally from Medical subsequent subsequent request B ranfreddy encounter encounter for surgery [id number] Morbid Morbid Disease Active 2016-03 [facility] obesity [...] prakash initial initial for encounter encounter surgery [id number] 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 8-28 He alth disorder, disorder, 00:00: recurrent recurrent 00 episode, episode, unspecifie unspecifie d d Localized Localized Disease Active 2009-03 Lionel ris osteoarthr osteoarthr 2-06 He alth osis not osis not 00:00: specified specified 00 whether whether primary or primary or secondary, secondary, pelvic pelvic region and region and thigh thigh Localized Localized Disease Active Overview: Warner osteoarthr osteoarthr 11-01 [facility] osis not osis not 00:00: g of [...] Active Overview: Yaritza is gynecologi gynecologi 08-30 [facility] kurt kurt 00:00: g of this examinatio [...] ed Pain in Pain in Disease Active Warner joint, joint, 06-28 Health lower leg lower leg 00:00: 00 Pseudotumo Pseudotumo Disease Active H arris r cerebri r cerebri 06-28 Heal th 00:00: 00 Hypertensi Hypertensi Disease Active H arris on on 06-28 Health 00:00: 00 Obesity, Obesity, Disease Active Clara crockett unspecifie unspecifie 06-28 He alth d d 00:00: 00 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[place] hyperchole hyperchole 06-28 He alth sterolemia sterolemia 00:00: 00 Unspecifie Unspecifie Disease Active Overview : Timmy d venous d venous 06-28 [facility] Hea lth (periphera (periphera 00:00: g of this l) l) 00 note insufficie insufficie might be ncy ncy different from the original. Replaced inactive or deprecate d diagnosis from regulator y IMO import. Screening Screening Disease Active Overview: Timmy 06-28 [facility] [employer] 00:00: g of this 00 note might be different from the original. Replaced inactive or deprecate d diagnosis from regulator y IMO import. Allergic Allergic Disease Active Overview: Vizcaino rris rhinitis, rhinitis, 05 Formattin H ealth cause cause 00:00: g of this unspecifie unspecifie 00 note d d might be different from the original. Replaced inactive or deprecate d diagnosis from regulator y IMO import. Lumbago Lumbago Disease Active Warner 4-05 Health 00:00: 00 Depression Depression Disease Active H arris 3 Health 00:00: 00 Anemia in Anemia in Problem Active Zeynep via chronic Chronic Medical kidney Kidney disease Disease 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 Degenerati on with on with calcificat Calcificat ion ion Hemodialys Hemodialys Problem Active P rivia is-associa is-associa Me dical slaly sally hypotensio Hypotensio n n Dysphagia Dysphagia Problem Active Zeynep via Medical Anemia Anemia Problem Active 2022-03-31 Enrrique devang (disorder) (disorder) 22:23:48 l Active Guild Problem 03/31/2022 [facility] Anxiety Anxiety Problem Active 2022-03-31 Me moria (finding) (finding) 22:23:48 l Active Guild Problem 03/31/2022 [facility] Diabetes Diabetes Problem Active 2022-03-31 Memoria mellitus mellitus 22:23:48 l (disorder) (disorder) He rmann Active Problem 03/31/2022 [facility] Family Family Problem Active 2022-03-31 Enrrique devang history of history of 22:23:48 l stroke stroke [place] (context-d (context-d ependent ependent category) category) Active Problem 03/31/2022 [facility] History of History Problem Active 2022-03-31 Memoria cerebrovas of 22:23:48 l cular cerebrovas Juan Manuel n accident cular due to accident ischemia due to ischemia Active Problem 03/31/2022 [facility] Left Left Problem Active 2022-03-31 Memor ia hemiparesi hemiparesi 22:23:48 l s s [place] (disorder) (disorder) Active Problem 03/31/2022 [facility] Parkinson' Parkinson Problem Active 2022-03-31 Memoria s disease 's disease 22:23:48 l (disorder) (disorder) Elton green Active Problem 03/31/2022 [facility] CEREBRAL CEREBRAL Diagnosis Active 2022-07-12 Memoria INFARCTION INFARCTION 07:56:00 l , [place] UNSPECIFIE UNSPECIFIE D D Active [facility] [id number] Dependence Problem Active Co mmon on renal [facility] dialysis - [facility] [id number] Body mass Problem Active Com mon index Spirit (BMI) - [facility]I 35.0-35.9, [facility] [id number] History of Problem Active Co mmon CVA with [facility] residual - [facility] deficit [facility] [id number] Anemia of Problem Active Com mon chronic [facility] disease - [facility] [id number] Mixed Problem Active Common hyperlipid Spirit emia - [facility] [id number] Depression Problem Active Co mmon with Spirit anxiety - [facility] History of Past Illness Condition Condition Condition Status Onset Resolution Last Treating Co mments Source Name Details Category Date Date Treatment Clinician Date Traumatic Traumatic Diagnosis 2022-07-18 2022-07-18 Memoria AND/OR AND/OR 07-15 01:39:17 01:39:17 l non-trauma non-trauma 19:20: Elton elizabethshelli tic injury tic injury 00 (disorder) (disorder) 3 Diagnosis 07/18/2022 [facility] Contusion Contusion Diagnosis 2022-07-18 2022-07-18 Memoria of lower of lower 07-15 01:39:17 01:39:17 l leg leg 19:20: [place] (disorder) (disorder) 00 3 Diagnosis 07/18/2022 [facility] End stage End stage Diagnosis 2022-06-09 2022-06-09 Memoria renal renal - 05:09:41 05:09:41 l disease disease 01:03: [place] (disorder) (disorder) 00 06/07/2022 Diagnosis 06/09/2022 [facility] Low blood Low blood Diagnosis 2022-06-09 2022-06-09 Memoria pressure pressure - 05:09:41 05:09:41 l (disorder) (disorder) 01:02: He rmann 06/07/2022 00 Diagnosis 06/09/2022 [facility] Dehydratio Dehydrati Diagnosis 2022-06-09 2022-06-09 Memoria n on 06-07 05:09:41 05:09:41 l (disorder) (disorder) 01:02: He rmann 06/07/2022 00 Diagnosis 06/09/2022 [facility] Hypokalemi Hypokalem Diagnosis 2022-06-09 2022-06-09 Memoria a ia 06-07 05:09:41 05:09:41 l (disorder) (disorder) 01:02: He rmann 06/07/2022 00 Diagnosis 06/09/2022 [facility] Urinary Urinary Diagnosis 2022-03-31 2022-03-31 Memoria tract tract 1-04 22:23:48 22:23:48 l infectious infectious 03:35: He [facility] disease disease 00 (disorder) (disorder) 3 Diagnosis 03/31/2022 [facility] Absence Absence Diagnosis 2022-03-31 2022-03-31 Memoria seizure seizure 1-04 22:23:48 22:23:48 l (disorder) (disorder) 03:34: He rmann 3 Diagnosis 03/31/2022 [facility] Type 2 Type 2 Problem 2021-032022-03-06 2022-03-06 Memoria diabetes diabetes - 10:10:00 10:10:00 l mellitus mellitus 18:23: Juan Manuel n without without 00 complicati complicati ons ons 03/01/2022 03/06/2022 [facility] Anxiety Anxiety Problem 2021-032022-03-06 2022-03-06 Memoria disorder, disorder, - 10:10:00 10:10:00 l unspecifie unspecifie 18:23: He rmann d d 00 03/01/2022 03/06/2022 [facility] Anemia, Anemia, Problem 2021-032022-03-06 2022-03-06 Memoria unspecifie unspecifie - 10:10:00 10:10:00 l d d 18:23: [place] 03/01/2022 00 03/06/2022 [facility] Parkinson' Parkinson Problem 2021-032022-03-06 2022-03-06 Memoria s disease 's disease 2- 10:10:00 10:10:00 l 18:23: Juan Manuel n 2 00 03/06/2022 [facility] End stage End stage Problem 2021-032022-03-06 2022-03-06 Memoria renal renal 2- 10:10:00 10:10:00 l disease disease 18:22: Guild 03/01/2022 00 03/06/2022 [facility] Personal Personal Problem 2021-032022-03-06 2022-03-06 Memoria history of history of 05-02 10:10:00 10:10:00 l transient transient 18:22: Herm shelli ischemic ischemic 00 attack attack (TIA), and (TIA), and cerebral cerebral infarction infarction without without residual residual deficits deficits 03/01/2022 2 [facility] 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, syndrome, 05-02 10:10:00 10:10:00 l unspecifie unspecifie 18:21: He rmann d d 00 03/01/2022 2 [facility] Essential Essential Problem 2021-032022-03-06 2022-03-06 Memoria (primary) (primary) 05-02 10:10:00 10:10:00 l hypertensi hypertensi 18:21: He rmann on on 00 03/01/2022 2 [facility] Type II Type II Diagnosis 2021-032022-03-05 2022-03-05 Memoria diabetes diabetes 05-02 01:19:18 01:19:18 l mellitus mellitus 18:23: Juan Manuel n without without 00 complicati complicati on on (disorder) (disorder) 2 Diagnosis 03/05/2022 [facility] Anxiety Anxiety Diagnosis 2021-032022-03-05 2022-03-05 Memoria disorder disorder 05-02 01:19:18 01:19:18 l (disorder) (disorder) 18:23: He ann 03/01/2022 00 Diagnosis 03/05/2022 [facility] History of History Diagnosis 2021-032022-03-05 2022-03-05 Memoria - TIA of - TIA 2- 01:19:18 01:19:18 l (context-d (context-d 18:22: He [facility] ependent ependent 00 category) category) 03/01/2022 Diagnosis 03/05/2022 [facility] Paralytic Paralytic Diagnosis 2021-032022-03-05 2022-03-05 Memoria syndrome syndrome 2 01:19:18 01:19:18 l (disorder) (disorder) 18:21: He [facility] 03/01/2022 00 Diagnosis 03/05/2022 [facility] Essential Essential Diagnosis 2021-032022-03-05 2022-03-05 Memoria hypertensi hypertensi 05-02 01:19:18 01:19:18 l on on 18:21: [place] (disorder) (disorder) 00 03/01/2022 Diagnosis 03/05/2022 [facility] Allergies, Adverse Reactions, Alerts Allergy Allergy Status Severity Reaction(s) Onset Inactive Treating Comm ents Source Name Type Date Date Clinician Shellfis Propensi Active Itching [facility] Containi adverse 00:00: Medical ng reaction 00 Center Products s Crayfish Propensi Active Anaphylaxis [facility] ty to 5[facility]14 [facility] adverse 00:00: Medical reaction 00 Center s Shellfis Propensi Active Itching [facility] Containi adverse 00:00: Medical ng reaction 00 Center Products s CRAYFISH Allergy Active High Anaphylaxis SL EH 08-06 00:00: 00 SHELLFIS Allergy Active Med Itching 0 SLEH H 5-14 CONTAINI 00:00: NG 00 PRODUCTS Shellfis Propensi Active Hives 2018- Only [facility]-Derive ty to 03-29 crawfish Health d adverse 00:00: per Products reaction 00 patient. s Shellfis Propensi Active Hives 2018-03 Only Univer s h ty to 03-29 crawfish ity of Derived adverse 00:00: per [place] reaction 00 patient. Medica l s Branch 0 Drug Active Unknown Common allergy [facility] No Known No Known Active Memori a Medicati Medicati l on on Guild Allergie Allergie s s NO KNOWN Allergy Active [facility] ALLERGIE S Family History Family Member Diagnosis Comments Start Date Stop Date Source Natural father Diabetes [facility] Natural father Hypertension [facility] Natural father Stroke [facility] Natural mother Arthritis [facility] Natural mother Diabetes [facility] Natural mother Hypertension [facility] Natural sister Cancer [facility] Natural sister Hypertension [facility] Natural sister Clotting disorder [facility] Social History Social Habit Start Date Stop Date Quantity Comments Source History SDOH [facility] Alcohol Frequency [facility] Center History [facility] Alcohol Std Drinks [facility] History [facility] Alcohol Binge Medical [facility] Sexual orientation [facility] History of Tobacco Common [facility] - Use [facility] Tobacco use and 2022-06-14 2022-06-14 Smokeless tobacco Me [facility] exposure 00:00:00 00:00:00 non-user Hospital Alcohol intake 2022-06-14 2022-06-14 Lifetime non-drinker [facility] 00:00:00 00:00:00 (finding) Hospital History of Social 2022-06-14 2022-06-[address] function 00:00:00 00:00:00 Hospital Exposure to 2022-01-21 2022-01-31 Not sure [facility] SARS-CoV-2 (event) 00:00:00 10:24:00 History [facility] 2021-09-03 2021-09-[address] [facility] Unable to 00:00:00 00:00:00 Medical Center Pay History [facility] 2021-08-11 2021-08-[address] [facility] Housing Places 00:00:00 00:00:00 Medical Ce nter Lived History [facility] 2021-08-11 2021-08-[address] [facility] Housing Homeless 00:00:00 00:00:00 Medical Center Last Year Alcohol Comment 2011-07-19 2011-07-19 occassionally [facility] 00:00:00 00:00:00 Sex [birth year] [facility] 00:00:00 00:00:00 Hospital Smoking Status Start Date Stop Date Source Tobacco smoking consumption unknown [facility] Tobacco smoking status [facility] Medications Ordered Filled Start Stop Current Ordering Indication Dosage Frequency Signature Comments Components Source Medication Medication Date Date Medication? Clinician (SIG) Name Name amLODIPine 2022-0 Yes 5mg QD Take 1 Metho di (NORVASC) 5 3-24 tablet (5 st mg tablet 19:30: mg total) Hos alexis 16 by mouth l daily. apixaban 2022-0 Yes 5mg Q.5D Take 1 [facility]i (ELIQUIS) 5 3-24 tablet (5 st mg tablet 19:30: mg total) Hos alexis 16 by mouth 2 l (two) times a day. amLODIPine 2022-0 Yes 5mg QD Take 1 Metho di (NORVASC) 5 3-24 tablet (5 st mg tablet 19:30: mg total) Hos alexis 16 by mouth l daily. apixaban 2022-0 Yes 5mg Q.5D Take 1 [facility] (ELIQUIS) 5 3-24 tablet (5 st mg tablet 19:30: mg total) Hos alexis 16 by mouth 2 l (two) times a day. carbidopa-l 2022-0 Yes 2{tbl} Q.[id number] Take 2 [facility] evodopa 3-[id number] 25-100 mg 19:30: 3D [...] 16 by mouth l tablet daily. topiramate 2022-0 Yes 50mg Q.5D Take 1 Metho di (TOPAMAX) 3-24 tablet (50 st 50 MG 19:30: mg total) Hospita tablet 16 by mouth 2 l (two) times a day. traZODone 2022-0 Yes 25mg QD Take 0.5 Meth shwetha (DESYREL) 3-[address] 50 MG 19:30: (25 mg Hospita tablet 16 total) by l mouth nightly. valproate 2022-0 Yes 1000mg Q.[id number] Take 20 mL [facility] (DEPAKENE) 3-24 [id number] (1,[address] 250 mg/5 mL 19:30: 3D total) by H ospita syrup 16 mouth 3 l (three) times a day. 20ml (= 1000mg) three times daily - verified dose with retail pharmacy carbidopa-l 2022-0 Yes 2{tbl} Q.[id number] Take 2 [facility] evodopa 3-[id number] 25-100 mg 19:30: 3D [...] skin Hos alexis 16 daily. l spironolact 3-0 Yes 25mg QD Take 1 Meth shwetha one 3-24 tablet (25 st (ALDACTONE) 19:30: mg total) H ospita 25 MG 16 by mouth l tablet daily. topiramate 3-0 Yes 50mg Q.5D Take 1 Metho di (TOPAMAX) 3-24 tablet (50 st 50 MG 19:30: mg total) Hospita tablet 16 by mouth 2 l (two) times a day. traZODone 2023-0 Yes 25mg QD Take 0.5 Meth shwetha (DESYREL) 3-[address] 50 MG 19:30: (25 mg Hospita tablet 16 total) by l mouth nightly. valproate 2022-0 Yes 1000mg Q.[id number] Take 20 mL [facility] (DEPAKENE) 3-24 [id number] (1,[address] 250 mg/5 mL 19:30: 3D total) by H ospita syrup 16 mouth 3 l (three) times a day. 20ml (= 1000mg) three times daily - verified dose with retail pharmacy amLODIPine 2022-0 Yes 5mg QD Take 1 Metho di (NORVASC) 5 3-24 tablet (5 st mg tablet 19:30: mg total) Hos alexis 16 by mouth l daily. apixaban 202-0 Yes 5mg Q.5D Take 1 [facility] (ELIQUIS) 5 3-24 tablet (5 st mg tablet 19:30: mg total) Hos alexis 16 by mouth 2 l (two) times a day. carbidopa-l 2022-0 Yes 2{tbl} Q.[id number] Take 2 [facility] evodopa 3-[id number] 25-100 mg 19:30: 3D [...] Sunday, Sunday, and Sunday. Before dialysis metoprolol 3-0 Yes 100mg Q.5D Take 1 Meth shwetha [...] skin Hos alexis 16 daily. l spironolact 2023-0 Yes 25mg QD Take 1 Meth shwetha one 3-24 tablet (25 st (ALDACTONE) 19:30: mg total) H ospita 25 MG 16 by mouth l tablet daily. topiramate 3-0 Yes 50mg Q.5D Take 1 Metho di (TOPAMAX) 3-24 tablet (50 st 50 MG 19:30: mg total) Hospita tablet 16 by mouth 2 l (two) times a day. traZODone 2022-0 Yes 25mg QD Take 0.5 Meth shwetha (DESYREL) 3-[address] 50 MG 19:30: (25 mg [facility] tablet 16 total) by l mouth nightly. 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, Weight cefdinir 3-0 Yes 300 mg = 1 Mem oria 300 mg oral 1-04 cap, PO, l capsule 03:35: Q12H, X 7 Jennifer nn 00 day, # 14 cap, 0 Refill(s), Pharmacy: [facility], 167.64, cm, 03/28/22 17:57:00 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, Height, 61.364, kg, 03/28/22 17:57:00 CAR 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, Weight cefdinir 3-0 Yes 300 mg = 1 Mem oria 300 mg oral 1-04 cap, PO, l capsule 03:35: Q12H, X 7 Jennifer nn 00 day, # 14 cap, 0 Refill(s), Pharmacy: [facility], 167.64, cm, 03/28/22 17:57:00 CAR 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, Height, 61.364, kg, 03/28/22 17:57:00 CAR 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, Weight cefdinir 3-0 Yes 300 mg = 1 Mem oria 300 mg oral 1-04 cap, PO, l capsule 03:35: Q12H, X 7 Jennifer nn 00 day, # 14 cap, 0 Refill(s), Pharmacy: [facility], 167.64, cm, 03/28/22 17:57:00 CAR 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, Height, 61.364, kg, 03/28/22 17:57:00 CAR 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, Weight cefdinir 2023-0 Yes 300 mg = 1 Mem oria 300 mg oral 1-04 cap, PO, l capsule 03:35: Q12H, X 7 Jennifer nn 00 day, # 14 cap, 0 Refill(s), Pharmacy: [facility], 167.64, cm, 03/28/22 17:57:00 CAR 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, Height, 61.364, kg, 03/28/22 17:57:00 CAR 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, Weight Keppra 500 2021-03 No Notes: Memor ia mg oral 2-09 (Same l tablet 15:00: as:Keppra) Jennifer nn Keppra 500 2021-03 No Notes: Memor ia mg oral 2-09 (Same l tablet 15:00: as:Keppra) Jennifer nn Keppra 500 2021-03 No Notes: Memor ia mg oral 2-09 (Same l tablet 15:00: as:Keppra) Jennifer nn Keppra 500 2021-03 No Notes: Memor ia mg oral 2-09 (Same l tablet 15:00: as:Keppra) Jennifer nn Keppra 500 2021-03 No Notes: Memor ia mg oral 2-09 (Same l tablet 15:00: as:Keppra) Jennifer nn 00 Keppra 500 2021-03 No Notes: Memor ia mg oral 2-09 (Same l tablet 15:00: as:Keppra) Jennifer potassium 2021-03 No /= 14 Memoria chloride 2-08 Swiss, l 16:55: may Guild 00 dissolve each 20 mEq tablet in 4 oz of water. Allow about 2 minutes for the tablets to disintegra te. Stir before giving to prepare slurry and administer . Please exclude patient's with feeding tube less than 14 Swiss (Dobhoff, J-tube, etc) and pediatric and patients. potassium 2021-03 No /= 14 Memoria chloride 2-08 Swiss, l 16:55: may [place] 00 dissolve each 20 mEq tablet in 4 oz of water. Allow about 2 minutes for the tablets to disintegra te. Stir before giving to prepare slurry and administer . Please exclude patient's with feeding tube less than 14 Swiss (Dobhoff, J-tube, etc) and pediatric and patients. potassium 2021-03 No /= 14 Memoria chloride 2-08 Swiss, l 16:55: may [place] 00 dissolve each 20 mEq tablet in 4 oz of water. Allow about 2 minutes for the tablets to disintegra te. Stir before giving to prepare slurry and administer . Please exclude patient's with feeding tube less than 14 Swiss (Dobhoff, J-tube, etc) and pediatric and patients. potassium 2021-03 No /= 14 Memoria chloride 2-08 Swiss, l 16:55: may Guild 00 dissolve each 20 mEq tablet in 4 oz of water. Allow about 2 minutes for the tablets to disintegra te. Stir before giving to prepare slurry and administer . Please exclude patient's with feeding tube less than 14 Swiss (Dobhoff, J-tube, etc) and pediatric and patients. potassium 2021-03 No /= 14 Memoria chloride 2-08 Swiss, l 16:55: july Guild 00 dissolve each 20 mEq tablet in 4 oz of water. Allow about 2 minutes for the tablets to disintegra te. Stir before giving to prepare slurry and administer . Please exclude patient's with feeding tube less than 14 Swiss (Dobhoff, J-tube, etc) and pediatric and patients. potassium 2021-03 No /= 14 Memoria chloride 2-08 Swiss, l 16:55: july Guild 00 dissolve each 20 mEq tablet in 4 oz of water. Allow about 2 minutes for the tablets to disintegra te. Stir before giving to prepare slurry and administer . Please exclude patient's with feeding tube less than 14 Swiss (Dobhoff, J-tube, etc) and pediatric and patients. rotigotine 2021-03 No 1 patch, Mem oria 6 mg/24 hr 2-08 Route: l transdermal 15:00: TOP, Drug H ermann film, 00 Form: extended ERFILM, release Dosing Weight 63.5, kg, Daily, Start date: 03/02/22 9:00:00 CAR STORER, Duration: 30 day, Stop date: 03/31/22 9:00:00 CAR STORER rotigotine 2021- No 1 patch, Mem oria 6 mg/24 hr 2-08 Route: l transdermal 15:00: TOP, Drug H ermann film, 00 Form: extended ERFILM, release Dosing Weight 63.5, kg, Daily, Start date: 03/02/22 9:00:00 CAR STORER, Duration: 30 day, Stop date: 03/31/22 9:00:00 CAR STORER rotigotine 2021- No 1 patch, Mem oria 6 mg/24 hr 2-08 Route: l transdermal 15:00: TOP, Drug H ermann film, 00 Form: extended ERFILM, release Dosing Weight 63.5, kg, Daily, Start date: 03/02/22 9:00:00 CAR STORER, Duration: 30 day, Stop date: 03/31/22 9:00:00 CAR STORER rotigotine 2021-1 No 1 patch, Mem oria 6 mg/24 hr 2-08 Route: l transdermal 15:00: TOP, Drug H ermann film, 00 Form: extended ERFILM, release Dosing Weight 63.5, kg, Daily, Start date: 03/02/22 9:00:00 CAR STORER, Duration: 30 day, Stop date: 03/31/22 9:00:00 CAR STORER rotigotine 2021-03 No 1 patch, Mem oria 6 mg/24 hr 2-08 Route: l transdermal 15:00: TOP, Drug H ermann film, 00 Form: extended ERFILM, release Dosing Weight 63.5, kg, Daily, Start date: 03/02/22 9:00:00 CAR STORER, Duration: 30 day, Stop date: 03/31/22 9:00:00 CAR STORER rotigotine 2021-03 No 1 patch, Mem oria 6 mg/24 hr 2-08 Route: l transdermal 15:00: TOP, Drug H ermann film, 00 Form: extended ERFILM, release Dosing Weight 63.5, kg, Daily, Start date: 03/02/22 9:00:00 CAR STORER, Duration: 30 day, Stop date: 03/31/22 9:00:00 CAR STORER Remeron 2021-03 No Notes: Memoria 2-08 (Same l 03:00: as:Remeron Guild 00 ) pravastatin 2021-03 No Notes: Enrrique devang 2-08 (Same as: l 03:00: Pravachol) trazodone 2021-03 No Notes: Memori a 50 mg oral 2-08 (Same As: l tablet 03:00: Desyrel) Remeron 2021-03 No Notes: Memoria 2-08 (Same l 03:00: as:Remeron Guild ) pravastatin 2021-03 No Notes: Enrrique devang 2-08 (Same as: l 03:00: Pravachol) trazodone 2021-03 No Notes: Memori a 50 mg oral 2-08 (Same As: l tablet 03:00: Desyrel) Remeron 2021-03 No Notes: Memoria 2-08 (Same l 03:00: as:Remeron Guild 00 ) pravastatin 2021-03 No Notes: Enrrique devang 2-08 (Same as: l 03:00: Pravachol) trazodone 2021-03 No Notes: Memori a 50 mg oral 2-08 (Same As: l tablet 03:00: Desyrel) Remeron 2021-03 No Notes: Memoria 2-08 (Same l 03:00: as:Remeron Guild 00 ) pravastatin 2021-03 No Notes: Enrrique [...] Weight 63.5, kg, Start date: 03/01/22 17:00:00 CAR STORER, Duration: 30 day, Stop date: 03/31/22 9:00:00 CAR STORER metoprolol 2021-03 No Notes: Memor ia tartrate 2-07 (Same as: l 23:00: Lopressor) apixaban 2021-03 No Notes: Memoria 2-07 Same as: l 23:00: Eliquis Keppra 500 2021-03 No 1 tab, Memor ia mg oral 2-07 Route: PO, l tablet 23:00: Drug form: Jennifer nn 00 TAB, BID, Dosing Weight 63.5, kg, Start date: 03/01/22 17:00:00 CAR STORER, Duration: 30 day, Stop date: 03/31/22 9:00:00 CAR STORER metoprolol 2021-03 No Notes: Memor ia tartrate 2-07 (Same as: l 23:00: Lopressor) Guild 00 apixaban 2021-03 No Notes: Memoria 2-07 Same as: l 23:00: Eliquis Guild Keppra 500 2021-03 No 1 tab, Memor ia mg oral 2-07 Route: PO, l tablet 23:00: Drug form: Jennifer nn 00 TAB, BID, Dosing Weight 63.5, kg, Start date: 03/01/22 17:00:00 CAR STORER, Duration: 30 day, Stop date: 03/31/22 9:00:00 CAR STORER metoprolol 2021-03 No Notes: Memor ia tartrate 2-07 (Same as: l 23:00: Lopressor) apixaban 2021-03 No Notes: Memoria 2-07 Same as: l 23:00: Eliquis Keppra 500 2021-03 No 1 tab, Memor ia mg oral 2-07 Route: PO, l tablet 23:00: Drug form: Jennifer nn 00 TAB, BID, Dosing Weight 63.5, kg, Start date: 03/01/22 17:00:00 CAR STORER, Duration: 30 day, Stop date: 03/31/22 9:00:00 CAR STORER metoprolol 2021-03 No Notes: Memor ia tartrate 2-07 (Same as: l 23:00: Lopressor) Guild 00 apixaban 2021-03 No Notes: Memoria 2-07 Same as: l 23:00: Eliquis [place] 00 Keppra 500 2021-03 No 1 tab, Memor ia mg oral 2-07 Route: PO, l tablet 23:00: Drug form: Jennifer nn 00 TAB, BID, Dosing Weight 63.5, kg, Start date: 03/01/22 17:00:00 CAR STORER, Duration: 30 day, Stop date: 03/31/22 9:00:00 CAR STORER metoprolol 2021-03 No Notes: Memor ia tartrate 2-07 (Same as: l 23:00: Lopressor) Guild 00 apixaban 2021-03 No Notes: Memoria 2-07 Same as: l 23:00: Eliquis Keppra 500 2021-03 No 1 tab, Memor ia mg oral 2-07 Route: PO, l tablet 23:00: Drug form: Jennifer nn 00 TAB, BID, Dosing Weight 63.5, kg, Start date: 03/01/22 17:00:00 CAR STORER, Duration: 30 day, Stop date: 03/31/22 9:00:00 CAR STORER metoprolol 2021-03 No Notes: Memor ia tartrate [...] as: l tablet 18:19: Melatonin) Jennifer nn melatonin 2021-03 No Notes: Enrrique devang mg [...] Memoria 2-07 (Same as: l 15:13: Osmitrol) Guild 00 Infuse through 5 micron or smaller filter WASTE: F/P - Sink; E - Municipal Trash Bin mannitol 2021-03 No Notes: Memoria 2-07 (Same as: l 15:13: Osmitrol) [place] 00 Infuse through 5 micron or smaller filter WASTE: F/P - Sink; E - Municipal Trash Bin mannitol 2021-03 No Notes: Memoria 2-07 (Same as: l 15:13: Osmitrol) Guild 00 Infuse through 5 micron or smaller filter WASTE: F/P - Sink; E - Municipal Trash Bin mannitol 2021-03 No Notes: Memoria 2-07 (Same as: l 15:13: Osmitrol) Guild 00 Infuse through 5 micron or smaller filter WASTE: F/P - Sink; E - Municipal Trash Bin mannitol 2021-03 No Notes: Memoria 2-07 (Same as: l 15:13: Osmitrol) Guild 00 Infuse through 5 micron or smaller [...] No 125 mL, Memori a 10% in 2-07 Rate: 999 l Water IV 14:27: ml/hr, Guild 00 Infuse over: 0.1 hr, Route: IV, Total Volume: 125, Start date: 03/01/22 8:27:00 CAR STORER, Duration: 30 day, Stop date: 03/31/22 8:26:00 CAR STORER, PRN Glucose level, 0 Dextrose 2021- No 125 mL, Memori a 10% in 05-02 Rate: 999 l Water IV 14:27: ml/hr, Guild 00 Infuse over: 0.1 hr, Route: IV, Total Volume: 125, Start date: 03/01/22 8:27:00 CAR STORER, Duration: 30 day, Stop date: 03/31/22 8:26:00 CAR STORER, PRN Glucose level, 0 Dextrose 2021- No 125 mL, Memori a 10% in 2 Rate: 999 l Water IV 14:27: ml/hr, Guild 00 Infuse over: 0.1 hr, Route: IV, Total Volume: 125, Start date: 03/01/22 8:27:00 CAR STORER, Duration: 30 day, Stop date: 03/31/22 8:26:00 CAR STORER, PRN Glucose level, 0 Dextrose 2021-03 No 125 mL, Memori a 10% in 2 Rate: 999 l Water IV 14:27: ml/hr, [place] 00 Infuse over: 0.1 hr, Route: IV, Total Volume: 125, Start date: 03/01/22 8:27:00 CAR STORER, Duration: 30 day, Stop date: 03/31/22 8:26:00 CAR STORER, PRN Glucose level, 0 Dextrose 2021-03 No 125 mL, Memori a 10% in 05-02 Rate: 999 l Water IV 14:27: ml/hr, [place] 00 Infuse over: 0.1 hr, Route: IV, Total Volume: 125, Start date: 03/01/22 8:27:00 CAR STORER, Duration: 30 day, Stop date: 03/31/22 8:26:00 CAR STORER, PRN Glucose level, 0 Dextrose 2021-1 No 125 mL, Memori a 10% in 2 Rate: 999 l Water IV 14:27: ml/hr, [place] 00 Infuse over: 0.1 hr, Route: IV, Total Volume: 125, Start date: 03/01/22 8:27:00 CAR STORER, Duration: 30 day, Stop date: 03/31/22 8:26:00 CAR STORER, PRN Glucose level, 0 albumin 2021-03 No 25 gm, Memoria human 25% 2-07 Route: l intravenous 14:24: IVPB, Jennifer nn solution 00 ONCE, Dosing Weight 63.5, kg, Start date: 03/01/22 8:24:00 CAR STORER, Stop date: 03/01/22 8:24:00 CAR STORER, Indication : Intradialy tic Hypotensio n - See comments midodrine 2021-03 No Notes: Memori a 2-07 (Same l 14:24: as:Proamat Guild 00 ine) albumin 2021-03 No 25 gm, Memoria human 25% 2-07 Route: l intravenous 14:24: IVPB, Jennifer nn solution 00 ONCE, Dosing Weight 63.5, kg, Start date: 03/01/22 8:24:00 CAR STORER, Stop date: 03/01/22 8:24:00 CAR STORER, Indication : Intradialy tic Hypotensio n - See comments midodrine 2021-03 No Notes: Memori a 2-07 (Same l 14:24: as:Proamat Guild 00 ine) albumin 2021-03 No 25 gm, Memoria human 25% 2-07 Route: l intravenous 14:24: IVPB, Jennifer nn solution 00 ONCE, Dosing Weight 63.5, kg, Start date: 03/01/22 8:24:00 CAR STORER, Stop date: 03/01/22 8:24:00 CAR STORER, Indication : Intradialy tic Hypotensio n - See comments midodrine 2021-03 No Notes: Memori a 2-07 (Same l 14:24: as:Proamat [place] 00 ine) albumin 2021-03 No 25 gm, Memoria human 25% 2-07 Route: l intravenous 14:24: IVPB, Jennifer nn solution 00 ONCE, Dosing Weight 63.5, kg, Start date: 03/01/22 8:24:00 CAR STORER, Stop date: 03/01/22 8:24:00 CAR STORER, Indication : Intradialy tic Hypotensio n - See comments midodrine 2021-03 No Notes: Memori a 2-07 (Same l 14:24: as:Proamat Guild 00 ine) albumin 2021-03 No 25 gm, Memoria human 25% 2-07 Route: l intravenous 14:24: IVPB, Jennifer nn solution 00 ONCE, Dosing Weight 63.5, kg, Start date: 03/01/22 8:24:00 CAR STORER, Stop date: 03/01/22 8:24:00 CAR STORER, Indication : Intradialy tic Hypotensio n - See comments midodrine 2021-03 No Notes: Memori a 2-07 (Same l 14:24: as:Proamat [place] 00 ine) albumin 2021-03 No 25 gm, Olga Lidia human 25% 2-07 Route: l intravenous 14:24: IVPB, Jennifer nn solution 00 ONCE, Dosing Weight 63.5, kg, Start date: 03/01/22 8:24:00 CAR STORER, Stop date: 03/01/22 8:24:00 CAR STORER, Indication : Intradialy tic Hypotensio n - See comments midodrine 2021-03 No Notes: Memori a 2-07 (Same l 14:24: as:Proamat [facility] 00 ine) valproic 2021-03 Yes See Memoria [...] 2-07 0.5 tab, l tablet 12:53: PO, Guild 00 Bedtime, 0 Refill(s) Topamax 50 2021-03 [...] 2-07 0.5 tab, l tablet 12:53: PO, Guild 00 Bedtime, 0 Refill(s) rotigotine 2021-03 Yes [...] 2-07 Instructio l tablet 12:51: ns, 03/27 Guild 00 tab PO Bedtime, 0 Refill(s) Remeron 15 2021-03 Yes See Memoria mg oral 2-07 Instructio l tablet 12:51: ns, 03/27 [place] 00 tab PO Bedtime, 0 Refill(s) Remeron 15 2021-03 Yes See Memoria mg oral 2-07 Instructio l tablet 12:51: ns, 03/27 Guild 00 tab PO Bedtime, 0 Refill(s) Keppra [...] 12:50: BID, 0 [place] tablet 00 Refill(s) Keppra 500 2021-03 Yes See Memoria mg oral 2-07 Instructio l tablet 12:50: ns, daily Juan Manuel n , 0 Refill(s) melatonin 3 2021-03 Yes 3 mg = 1 Me moria mg oral 2-07 tab, PO, l tablet 12:50: Bedtime, Guild 00 PRN for insomnia, # 14 tab, 0 Refill(s) metoprolol 2021-03 Yes 25 mg = 1 Me moria tartrate 25 2-07 tab, PO, l mg oral 12:50: BID, 0 Guild tablet 00 Refill(s) Keppra 500 2021-03 Yes See Memoria mg oral 2-07 Instructio l tablet 12:50: ns, daily Juan Manuel n , 0 Refill(s) melatonin 3 2021-03 Yes 3 mg = 1 Me moria mg oral 2-07 tab, PO, l tablet 12:50: Bedtime, Guild 00 PRN for insomnia, # 14 tab, 0 Refill(s) metoprolol 2021-03 Yes 25 mg = 1 Me moria tartrate 25 2-07 tab, PO, l mg oral 12:50: BID, 0 Guild tablet 00 Refill(s) Keppra 500 2021-03 Yes [...] PO, l mg oral 12:50: BID, 0 Guild tablet 00 Refill(s) Keppra 500 2021-03 Yes [...] PO, l mg oral 12:50: BID, 0 Guild tablet 00 Refill(s) Keppra 500 2021-03 Yes See Memoria mg oral 2-07 Instructio l tablet 12:50: ns, daily Juan Manuel n , 0 Refill(s) melatonin 3 2021-03 Yes 3 mg = 1 Me moria mg oral 2-07 tab, PO, l tablet 12:50: Bedtime, Guild 00 PRN for insomnia, # 14 tab, 0 Refill(s) metoprolol 2021-03 Yes 25 mg = 1 Me moria tartrate 25 2-07 tab, PO, l mg oral 12:50: BID, 0 Guild tablet 00 Refill(s) Sinemet 25 2021-03 Yes 1 tab, PO, M emoria mg-100 mg 2-07 TID, 0 l oral tablet 12:49: Refill(s) H erm Sinemet 2021-03 Yes 1 tab, PO, M emoria mg-100 mg 2-07 TID, 0 l oral tablet 12:49: Refill(s) H erm Sinemet 2021-03 Yes 1 tab, PO, M emoria mg-100 mg 2-07 TID, 0 l oral tablet 12:49: Refill(s) H erm Sinemet 2021-03 Yes 1 tab, PO, M emoria mg-100 mg 2-07 TID, 0 l oral tablet 12:49: Refill(s) H erm Sinemet 2021-03 Yes 1 tab, PO, M emoria mg-100 mg 2-07 TID, 0 l oral tablet 12:49: Refill(s) H erm Sinemet 2021-03 Yes 1 tab, PO, M emoria mg-100 mg 2-07 TID, 0 l oral tablet 12:49: Refill(s) H erm apixaban 2021-03 Yes 5 mg = 1 Mem oria mg oral 2-07 tab, PO, l tablet 12:48: BID, 0 Guild 00 Refill(s) apixaban 2021-03 Yes 5 mg = 1 Mem oria mg oral 2-07 tab, PO, l tablet 12:48: BID, 0 [place] 00 Refill(s) apixaban 2021-03 Yes 5 mg = 1 Mem oria mg oral 2-07 tab, PO, l tablet 12:48: BID, 0 Guild 00 Refill(s) apixaban 2021-03 Yes 5 mg = 1 Mem oria mg oral 2-07 tab, PO, l tablet 12:48: BID, 0 Guild 00 Refill(s) apixaban 2021-03 Yes 5 mg = 1 Mem oria mg oral 2-07 tab, PO, l tablet 12:48: BID, 0 Guild 00 Refill(s) apixaban 2021-03 Yes 5 mg = 1 Mem oria mg oral 2-07 tab, PO, l tablet 12:48: BID, 0 [place] 00 Refill(s) aspirin 81 2-1 No 81 mg, Memor ia mg tablet, 2- Route: PO, l chewable 06:00: Drug form: Her ally 00 CHEWTAB, Q24H, Dosing Weight 62.727, kg, Start date: 03/01/22 0:00:00 CAR STORER, Duration: 30 day, Stop date: 03/30/22 0:00:00 CAR STORER, 0 aspirin 81 2-1 No 81 mg, Memor ia mg tablet, 2- Route: PO, l chewable 06:00: Drug form: Her ally 00 CHEWTAB, Q24H, Dosing Weight 62.727, kg, Start date: 03/01/22 0:00:00 CAR STORER, Duration: 30 day, Stop date: 03/30/22 0:00:00 CAR STORER, 0 aspirin 81 2-1 No 81 mg, Memor ia mg tablet, 2 Route: PO, l chewable 06:00: Drug form: Her ally 00 CHEWTAB, Q24H, Dosing Weight 62.727, kg, Start date: 03/01/22 0:00:00 CAR STORER, Duration: 30 day, Stop date: 03/30/22 0:00:00 CAR STORER, 0 aspirin 81 2-1 No 81 mg, Memor ia mg tablet, 2 Route: PO, l chewable 06:00: Drug form: Her canales 00 CHEWTAB, Q24H, Dosing Weight 62.727, kg, Start date: 03/01/22 0:00:00 CAR STORER, Duration: 30 day, Stop date: 03/30/22 0:00:00 CAR STORER, 0 aspirin 81 2-1 No 81 mg, Memor ia mg tablet, 2- Route: PO, l chewable 06:00: Drug form: Her ally 00 CHEWTAB, Q24H, Dosing Weight 62.727, kg, Start date: 03/01/22 0:00:00 CAR STORER, Duration: 30 day, Stop date: 03/30/22 0:00:00 CAR STORER, 0 aspirin 81 2-1 No 81 mg, Memor ia mg tablet, 2- Route: PO, l chewable 06:00: Drug form: Her ally 00 CHE[place]AB, Q24H, Dosing Weight 62.727, kg, Start date: 03/01/22 0:00:00 CAR STORER, Duration: 30 day, Stop date: 03/30/22 0:00:00 CAR STORER, 0 atorvastati 2021-03 No Notes: Enrrique devang n 2-07 (Same as: l 03:00: Lipitor) Guild 00 Saline 2021-03 No Notes: Memoria Flush 0.9% 2-07 Same as: l 03:00: BD Guild 00 Posiflush Sterile atorvastati 2021-03 No Notes: Enrrique devang n 2-07 (Same as: l 03:00: Lipitor) Guild Saline 2021-03 No Notes: Memoria Flush 0.9% 2-07 Same as: l 03:00: BD Guild 00 Posiflush Sterile atorvastati 2021-03 No Notes: Enrrique devang n 2-07 (Same as: l 03:00: Lipitor) [place] Saline 2021-03 No Notes: Memoria Flush 0.9% 2-07 Same as: l 03:00: BD [place] 00 Posiflush Sterile atorvastati 2021-03 No Notes: Enrrique devang n 2-07 (Same as: l 03:00: Lipitor) Guild 00 Saline 2021-03 No Notes: Memoria Flush 0.9% 2-07 Same as: l 03:00: BD Guild 00 Posiflush Sterile atorvastati 2021-03 No Notes: Enrrique devang n 2-07 (Same as: l 03:00: Lipitor) Guild 00 Saline 2021-03 No Notes: Memoria Flush 0.9% 2-07 Same as: l 03:00: BD [place] 00 Posiflush Sterile atorvastati 2021-03 No Notes: Enrrique devang n 2-07 (Same as: l 03:00: Lipitor) [place] 00 Saline 2021-03 No Notes: Memoria Flush 0.9% 2-07 Same as: l 03:00: BD Guild 00 Posiflush Sterile aspirin 81 2021-03 No Notes: Memor ia mg tablet, 2-06 Take with l chewable 23:00: food. Guild 00 aspirin 81 2021-03 No Notes: Memor ia [...] 2-06 25 mL, l (D50W) 22:53: Route: IVP, Drug Form: INJ, Dosing Weight 62.727, kg, PRN, PRN Blood Glucose Results, Start date: 02/28/22 16:53:00 CAR STORER, Duration: 30 day, Stop date: 03/30/22 16:52:00 CAR STORER, 0 glucagon 2021-03 No 1 mg, Memoria 2-06 Route: IM, l 22:53: Drug form: PDR/INJ, PRN, Dosing Weight 62.727, kg, PRN Blood Glucose Results, Start date: 02/28/22 16:53:00 CAR STORER, Duration: 30 day, Stop date: 03/30/22 16:52:00 CAR STORER, 0 insulin 2021-03 No Notes: Memoria lispro 2-06 (Same as: l 22:53: Humalog) Roll in palms of hands gently; Do not shake vigorously . WASTE: F/P - Black; E - Municipal Trash Bin Stable for 28 days at room temperatur e. Expires in days from ____Date Dextrose 2021-03 No 12.5 gm, Memor ia 50% Syringe 2-06 25 mL, l (D50W) 22:53: Route: IVP, Drug Form: INJ, Dosing Weight 62.727, kg, PRN, PRN Blood Glucose Results, Start date: 02/28/22 16:53:00 CAR STORER, Duration: 30 day, Stop date: 03/30/22 16:52:00 CAR STORER, 0 glucagon 2021- No 1 mg, Memoria 2-06 Route: IM, l 22:53: Drug form: Guild 00 PDR/INJ, PRN, Dosing Weight 62.727, kg, PRN Blood Glucose Results, Start date: 02/28/22 16:53:00 CAR STORER, Duration: 30 day, Stop date: 03/30/22 16:52:00 CAR STORER, 0 insulin 2021- No Notes: Memoria lispro 2-06 (Same as: l 22:53: Humalog) Roll in palms of hands gently; Do not shake vigorously . WASTE: F/P - Black; E - Municipal Trash Bin Stable for 28 days at room temperatur e. Expires in days from ____Date Dextrose 2021- No 12.5 gm, Memor ia 50% Syringe 2-06 25 mL, l (D50W) 22:53: Route: Guild 00 IVP, Drug Form: INJ, Dosing Weight 62.727, kg, PRN, PRN Blood Glucose Results, Start date: 02/28/22 16:53:00 CAR STORER, Duration: 30 day, Stop date: 03/30/22 16:52:00 CAR STORER, 0 glucagon 2021- No 1 mg, Memoria 2-06 Route: IM, l 22:53: Drug form: Guild 00 PDR/INJ, PRN, Dosing Weight 62.727, kg, PRN Blood Glucose Results, Start date: 02/28/22 16:53:00 CAR STORER, Duration: 30 day, Stop date: 03/30/22 16:52:00 CAR STORER, 0 Dextrose 2021- No 12.5 gm, Memor ia 50% Syringe 2-06 25 mL, l (D50W) 22:53: Route: Guild 00 IVP, Drug Form: INJ, Dosing Weight 62.727, kg, PRN, PRN Blood Glucose Results, Start date: 02/28/22 16:53:00 CAR STORER, Duration: 30 day, Stop date: 03/30/22 16:52:00 CAR STORER, 0 glucagon 2021- No 1 mg, Memoria 2-06 Route: IM, l 22:53: Drug form: Guild 00 PDR/INJ, PRN, Dosing Weight 62.727, kg, PRN Blood Glucose Results, Start date: 02/28/22 16:53:00 CAR STORER, Duration: 30 day, Stop date: 03/30/22 16:52:00 CAR STORER, 0 insulin 2021-03 No Notes: Memoria lispro 2-06 (Same as: l 22:53: Humalog) Guild 00 Roll in palms of hands gently; Do not shake vigorously . WASTE: F/P - Black; E - Municipal Trash Bin Stable for 28 days at room temperatur e. Expires in days from ____Date insulin 2021-03 No Notes: Memoria lispro 2-06 (Same as: l 22:53: Humalog) [place] 00 Roll in palms of hands gently; Do not shake vigorously . WASTE: F/P - Black; E - Municipal Trash Bin Stable for 28 days at room temperatur e. Expires in days from ____Date Dextrose 2021-03 No 12.5 gm, Memor ia 50% Syringe 2- 25 mL, l (D50W) 22:53: Route: [place] 00 IVP, Drug Form: INJ, Dosing Weight 62.727, kg, PRN, PRN Blood Glucose Results, Start date: 02/28/22 16:53:00 [employer] STORER, Duration: 30 day, Stop date: 03/30/22 16:52:00 [employer] STORER, 0 glucagon 2021-03 No 1 mg, Memoria 2-06 Route: IM, l 22:53: Drug form: [facility] 00 PDR/INJ, PRN, Dosing Weight 62.727, kg, PRN Blood Glucose Results, Start date: 02/28/22 16:53:00 CAR STORER, Duration: 30 day, Stop date: 03/30/22 16:52:00 CAR STORER, 0 insulin 2021-03 No Notes: [facility]oria lispro 2-06 (Same as: l 22:53: Humalog) [place] 00 Roll in palms of hands gently; Do not shake vigorously . WASTE: F/P - Black; E - [facility] Trash Bin Stable for 28 days at room temperatur e. Expires in days from ____Date Dextrose 2021-03 No 12.5 gm, Memor ia 50% Syringe 2-06 25 mL, l (D50W) 22:53: Route: [place] 00 IVP, Drug Form: INJ, Dosing Weight 62.727, kg, PRN, PRN Blood Glucose Results, Start date: 02/28/22 16:53:00 CAR STORER, Duration: 30 day, Stop date: 03/30/22 16:52:00 CAR STORER, 0 glucagon 2021-03 No 1 mg, Memoria 2-06 Route: IM, l 22:53: Drug form: [place] 00 PDR/INJ, PRN, Dosing Weight 62.727, kg, PRN Blood Glucose Results, Start date: 02/28/22 16:53:00 [employer] STORER, Duration: 30 day, Stop date: 03/30/22 16:52:00 CAR STORER, 0 insulin 2021-03 No Notes: [facility]oria lispro [...] 0.9% 2-06 Same as: l 22:51: BD [facility] 00 Posiflush Sterile acetaminoph 2021-03 No Notes: Do M emoria en 2-06 not exceed l 22:51: 4 gm/day. [place] 00 (Same as: Tylenol) Saline 2021-03 No Notes: Memoria Flush 0.9% 2-06 Same as: l 22:51: BD [place] 00 Posiflush Sterile acetaminoph 2021-03 No Notes: Do M emoria en 2-06 not exceed l 22:51: 4 gm/day. [facility] 00 (Same as: Tylenol) Saline 2021-03 No Notes: [facility] Flush 0.9% 2-06 Same as: l 22:51: BD [place] 00 Posiflush Sterile acetaminoph 2021-03 No Notes: Do M emoria en 2-06 not exceed l 22:51: 4 gm/day. [facility] 00 (Same as: Tylenol) Saline 2021-03 No Notes: [facility] Flush 0.9% 2-06 Same as: l 22:51: BD [facility] 00 Posiflush Sterile acetaminoph 2021-03 No Notes: Do M emoria en 2- not exceed l 22:51: 4 gm/day. [facility] 00 (Same as: Tylenol) Saline 2021-03 No Notes: [facility] Flush 0.9% 2-06 Same as: l 22:51: BD [facility] 00 Posiflush Sterile acetaminoph 2021-03 No Notes: Do M emoria en 2- not exceed l 22:51: 4 gm/day. [facility] 00 (Same as: Tylenol) Saline 2021-03 No Notes: [facility] Flush 0.9% 2-06 Same as: l 22:51: BD [facility] 00 Posiflush Sterile Dextrose 2021-03 No 25 mL, Memoria 50% Syringe 2-06 Route: l (D50W) 18:50: IVP, [place] 00 Dosing Weight 62.727, kg, ONCE, STAT, Start date: 02/28/22 12:50:00 CAR STORER, Stop date: 02/28/22 12:50:00 CAR STORER, Dextrose 50%: 12.5 gm = 25 mL Dextrose 2021-03 No 25 mL, Mem[facility] 50% Syringe 2-06 Route: l (D50W) 18:50: IVP, [place] 00 Dosing Weight 62.727, kg, ONCE, STAT, Start date: 02/28/22 12:50:00 CAR STORER, Stop date: 02/28/22 12:50:00 CAR STORER, Dextrose 50%: 12.5 gm = 25 mL Dextrose 2021-03 No 25 mL, [facility] 50% Syringe 2-06 Route: l (D50W) 18:50: IVP, [place] 00 Dosing Weight 62.727, kg, ONCE, STAT, Start date: 02/28/22 12:50:00 CAR STORER, Stop date: 02/28/22 12:50:00 CAR STORER, Dextrose 50%: 12.5 gm = 25 mL Dextrose 2021-03 No 25 mL, [facility] 50% Syringe 2-06 Route: l (D50W) 18:50: IVP, [place] Dosing Weight 62.727, kg, ONCE, STAT, Start date: 02/28/22 12:50:00 CAR STORER, Stop date: 02/28/22 12:50:00 CAR STORER, Dextrose 50%: 12.5 gm = 25 mL Dextrose 2021-03 No 25 mL, [facility] 50% Syringe 2-06 Route: l (D50W) 18:50: IVP, [place] Dosing Weight 62.727, kg, ONCE, STAT, Start date: 02/28/22 12:50:00 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, 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 date: 02/28/22 12:50:00 CAR 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, Dextrose 50%: 12.5 gm = 25 mL Dextrose 2021-03 No 25 mL, [facility] 50% Syringe 2-06 Route: l (D50W) 18:50: IVP, [place] Dosing Weight 62.727, kg, ONCE, STAT, Start date: 02/28/22 12:50:00 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, 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 date: 02/28/22 12:50:00 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, Dextrose 50%: 12.5 gm = 25 mL Saline 2021-03 No Notes: [facility] Flush 0.9% 2-06 Same as: l 18:17: BD [facility] 00 Posiflush Sterile Saline 2021-03 No Notes: Mem[facility] Flush 0.9% 2-06 Same as: l 18:17: BD [facility] 00 Posiflush Sterile Saline 2021-03 No Notes: [facility] Flush 0.9% 2-06 Same as: l 18:17: BD [facility] 00 Posiflush Sterile Saline 2021-03 No Notes: Mem[facility] Flush 0.9% 2-06 Same as: l 18:17: BD [facility] 00 Posiflush Sterile Saline 2021-03 No Notes: Mem[facility] Flush 0.9% 2-06 Same as: l 18:17: BD [facility] 00 Posiflush Sterile Saline 2021-03 No Notes: Memoria Flush 0.9% - Same as: l 18:17: BD [facility] 00 Posiflush Sterile cholecalcif 2021-03 Yes 5000U QD Take 5,000 UT qian (D3-5) 1-08 Units by [facility] 5,000 Units 10:40: mouth 1 tablet 44 (one) time each day. midodrine 2021-03 Yes Take 2 UT (Proamatine 1-08 tablets [facility] ) 5 MG 10:40: twice tablet 44 daily cholecalcif 2021-03 Yes 5000U QD Take 5,000 UT qian (D3-5) 1-08 Units by [facility] 5,000 Units 10:40: mouth 1 tablet 44 (one) time each day. midodrine 2021-03 Yes Take 2 UT (Proamatine 1-08 tablets [facility] ) 5 MG 10:40: twice tablet 44 daily lacosamide 2021-03 Yes [id number] TAKE 1 U T (Vimpat) 1-08 TABLET BY [facility] 200 mg 00:00: MOUTH ON tablet Sunday, tablet SUNDAY AND FRIDAYStre ngth: 200 mg levETIRAcet 2021-03 Yes [id number] TAKE ONE UT am (Keppra) 1-08 TABLET BY [facility] 500 MG 00:00: MOUTH tablet 00 THREE TIMES A WEEK (SUNDAY, SUNDAY, AND SUNDAY)Str ength: 500 mg lacosamide 2021-03 Yes [id number] TAKE 1 U T (Vimpat) 1-08 TABLET BY [facility] 200 mg 00:00: MOUTH ON tablet Sunday, tablet SUNDAY AND FRIDAYStre ngth: 200 mg levETIRAcet 2021-03 Yes [id number] TAKE ONE UT am (Keppra) 1-08 TABLET BY [facility] 500 MG 00:00: MOUTH tablet 00 THREE TIMES A WEEK (SUNDAY, SUNDAY, AND SUNDAY)Str ength: 500 mg carbidopa-l 2021-03- No [id number] 2{tbl} Q.5D Take 2 UT evodopa 1-08 05-08 tablets by [facility] (Sinemet) 00:00: 04:59 mouth in 25-100 MG 00 :00 the tablet morning and 2 tablets in the evening. rotigotine 2021-03- No [id number] 1{patch QD Place 1 UT (Neupro) 6 04-02 05-08 } patch on [facility]al th MG/24HR 00:00: 04:59 the skin 1 00 :00 (one) time each day. topiramate 2021-03- No [id number] 50mg Q.5D Take 1 UT 50 MG -08 05-08 tablet (50 Health tablet 00:00: 04:59 mg total) 00 :00 by mouth in the morning and 1 tablet (50 mg total) in the evening. carbidopa-l 2021-03- No [id number] 2{tbl} Q.5D Take 2 UT evodopa 04-02 05-08 tablets by [facility]alt [facility] (Sinemet) 00:00: 04:59 mouth in 25-100 MG 00 :00 the tablet morning and 2 tablets in the evening. rotigotine 2021-03- No [id number] 1{patch QD Place 1 UT (Neupro) 6 04-02-08 } patch on [facility] MG/24HR 00:00: 04:59 the skin 1 00 :00 (one) time each day. topiramate 2021-03- No [id number] 50mg Q.5D Take 1 UT 50 MG 08 05-08 tablet (50 Health tablet 00:00: 04:59 mg total) 00 :00 by mouth in the morning and 1 tablet (50 mg total) in the evening. topiramate 2021-03- No UT 50 MG 03-31 Health tablet 00:00: 00:00 00 :00 topiramate 2021-03- No UT 50 MG -06 01-31 Health tablet 00:00: 00:00 00 :00 levETIRAcet 2021-03- No TAKE ONE U T am (Keppra) 0-30 - TABLET BY [facility] 500 MG 00:00: 00:00 MOUTH tablet 00 :00 THREE TIMES A WEEK (SUNDAY, SUNDAY, AND SUNDAY) levETIRAcet 2021-03- No TAKE ONE U T am (Keppra) 0-30 -08 TABLET BY [facility] 500 MG 00:00: [...] 500 mg/5 mL 00:00: total) by M edical (5 mL) Soln 00 mouth 3 Cente [...] 00 :00 by mouth Center daily. levETIRAcet 2021-2021- No 1000mg QD Take [address] [facility] [...] oral daily for solution 90 days. levETIRAcet 2021-2021- No 1000mg QD Take [address] [facility] am (KEPPRA) 7 10-01 mLs (1,000 L ukes 500 mg/5 [...] oral daily for solution 90 days. levETIRAcet 2022- No 1000mg QD Take [address] [facility] am (KEPPRA) 09-25 10-01 mLs (1,000 L [facility] 500 mg/5 mL 00:00: 23:59 mg total) Medical (5 mL) Soln 00 :00 by mouth Cent er oral daily for solution 90 days. pravastatin 0 Yes 20mg QD Take [address] [facility] (PRAVACHOL) 7-02 by mouth [facility] 20 MG 16:12: daily. Medical tablet 11 [place] carbidopa-l Yes 2{tbl} Q.[id number] Take [address] [facility] evodopa 7- [id number] tablets by [facility] (SINEMET) 16:12: 3D mouth [...] 20 MG 16:12: daily. Medical tablet 11 [place] carbidopa-l Yes 2{tbl} Q.[id number] Take [address] [facility] evodopa 7- [id number] tablets by [facility] (SINEMET) 16:12: 3D mouth [...] 20 MG 16:12: daily. Medical tablet 11 [place] carbidopa-l Yes 2{tbl} Q.12252079 Take [address] [facility] evodopa 7- [id number] tablets by [facility] (SINEMET) 16:12: 3D mouth 3 Medic al 25-100 mg 11 (three) Center per tablet times daily. rotigotine Yes 1{patch QD Place [address] (NEUPRO) 6 7- } patch onto [facility] mg/24 hour 16:12: the skin Med ical 11 daily. [place] pravastatin Yes 20mg QD Take [address] [facility] (PRAVACHOL) 7-02 by mouth [facility] 20 MG 16:12: daily. Medical tablet 11 [place] carbidopa-l Yes 2{tbl} Q.[id number] Take [address] [facility] evodopa 7- [id number] tablets by [facility] (SINEMET) 16:12: 3D mouth 3 Medic al 25-100 mg 11 (three) Center per tablet times daily. rotigotine Yes 1{patch QD Place [address] (NEUPRO) 6 7- } patch onto [facility] mg/24 hour 16:12: the skin Med ical 11 daily. [place] pravastatin Yes 20mg QD Take [address] [facility] (PRAVACHOL) 7-02 by mouth [facility] 20 MG 16:12: daily. Medical tablet 11 [place] carbidopa-l Yes 2{tbl} Q.[id number] Take [address] [facility] evodopa 7- [id number] tablets by [facility] (SINEMET) 16:12: 3D mouth 3 Medic al 25-100 mg 11 (three) Center per tablet times daily. rotigotine Yes 1{patch QD Place [address] (NEUPRO) 6 7- } patch onto [facility] mg/24 hour 16:12: the skin Med ical 11 daily. [place] ascorbic 2021- No 500mg QD Take [address] acid, 09-24- mg by [facility] vitamin C, 11:43: 00:00 mouth Medic al (ASCORBIC 48 :00 daily. [place] ACID WITH SKYLAR HIPS) 500 MG tablet melatonin/p 2021- No 10mg QD Take [address] [facility] yridoxine 09-24 07-02 by mouth [facility] (MELATONIN, 11:43: 00:00 every Medi kurt WITH B6, 48 :00 evening. Center ORAL) ascorbic 2022-0 2022- No 500mg QD Take [address] acid, 7- 07-02 mg by [facility] vitamin C, 11:43: 00:00 mouth Medic al (ASCORBIC 48 :00 daily. Center ACID WITH SKYLAR HIPS) 500 MG tablet melatonin/p 2-0 2022- No 10mg QD Take [address] [facility] yridoxine 09-24-02 by mouth [facility] (MELATONIN, 11:43: 00:00 every Medi kurt WITH B6, 48 :00 evening. Center ORAL) ascorbic 2022-0 2022- No 500mg QD Take [address] acid, 7- 07-02 mg by [facility] vitamin C, 11:43: 00:00 mouth Medic al (ASCORBIC 48 :00 daily. Center ACID WITH SKYLAR HIPS) 500 MG tablet melatonin/p 2-0 2- No 10mg QD Take [address] [facility] yridoxine -05 02- by mouth [facility] (MELATONIN, 11:43: 00:00 every Medi krut WITH B6, 48 :00 evening. Center ORAL) [...] 100mg Take [address] (APRESOLINE 7-02 07-02 tablet [facility] ) 100 MG 00:00: [...] 100mg Q.5D Take [address] [facility] tartrate 7-02 07-02 tablet [facility] (LOPRESSOR) 00:00: 23:59 (100 [...] 100mg Q.5D Take [address] [facility] tartrate 7-02 07-02 tablet [facility] (LOPRESSOR) 00:00: 23:59 (100 [...] Ce nter tablet (two) times daily. topiramate 2022-0 3- No 50mg Take [address] [facility] [...] Max Daily Amount: 0.5 mg valproic 2022-0 2- No 1000mg Take [address] [facility] [facility] [...] Max Daily Amount: 0.5 mg valproic 2022-0 2- No 1000mg Take [address] [facility] [facility] [...] 1000mg Take [address] acid, as 7-02 08-01 mLs (1,000 [facility] sodium 00:00: [...] solution 30 days. epoetin 2021-0 Yes anemia [id number] Inject [address] pb 5-28 mL (10,000 [facility] (EPOGEN,PRO 00:00: Units Medic al CRIT) 00 total) Center 10,000 subcutaneo unit/mL usly 3 injection (three) times a week at bedtime SUN/SUN/ T. epoetin 2021-0 Yes anemia [id number] Inject [address] pb 5-28 mL (10,000 [facility] (EPOGEN,PRO 00:00: Units Medic al CRIT) 00 total) Center 10,000 subcutaneo unit/mL usly 3 injection (three) times a week at bedtime TUE/BACILIO/SA T. epoetin Yes anemia [id number] Inject [address] pb 5-28 mL (10,000 [facility] (EPOGEN,PRO 00:00: Units Medic al CRIT) 00 total) Center 10,000 subcutaneo unit/mL usly 3 injection (three) times a week at bedtime TUE/BACILIO/SA T. epoetin Yes anemia [id number] Inject [address] pb 5-28 mL (10,000 [facility] (EPOGEN,PRO 00:00: Units Medic al CRIT) 00 total) Center 10,000 subcutaneo unit/mL usly 3 injection (three) times a week at bedtime TUE/BACILIO/SA T. epoetin Yes anemia [id number] Inject [address] pb 5-28 mL (10,000 [facility] (EPOGEN,PRO 00:00: Units Medic al CRIT) 00 total) Center 10,000 subcutaneo unit/mL usly 3 injection (three) times a week at bedtime TUE/BACILIO/SA T. epoetin Yes anemia [id number] Inject [address] pb 5-28 mL (10,000 [facility] (EPOGEN,PRO 00:00: Units Medic al CRIT) 00 total) Center 10,000 subcutaneo unit/mL usly 3 injection (three) times a week at bedtime TUE/BACILIO/SA T. levETIRAcet Yes 1000mg Q24H Inject [facility] am (KEPPRA) 5-28 1,000 mg Luke [facility] IVPB 00:00: intravenou Medical 00 sly daily. Center epoetin Yes anemia [id number] Inject [address] pb 5-28 mL (10,000 [facility] (EPOGEN,PRO 00:00: Units Medic al CRIT) 00 total) Center 10,000 subcutaneo unit/mL usly 3 injection (three) times a week at bedtime TUE/BACILIO/SA T. levETIRAcet Yes 1000mg Q24H Inject [facility] am (KEPPRA) 5-28 1,000 mg [facility] IVPB 00:00: intravenou Medical 00 sly daily. Center ergocalcife 2022-0 2023- No [id number] Q7D Take [address] rol 5-28 05-28 capsule [facility] (ERGOCALCIF 00:00: 23:59 (50,000 Me dical QIAN) 1,250 00 :00 Units Center mcg (50,000 total) by unit) mouth once capsule a week. ergocalcife 2022-0 2023- No [id number] Q7D Take [address] rol 5-28 05-28 capsule [facility] (ERGOCALCIF 00:00: 23:59 (50,000 Me dical QIAN) 1,250 00 :00 Units Center mcg (50,000 total) by unit) mouth once capsule a week. ergocalcife 2022-0 2023- No [id number] Q7D Take [address] rol 5-28 05-28 capsule [facility] (ERGOCALCIF 00:00: 23:59 (50,000 Me dical QAIN) 1,250 00 :00 Units Center mcg (50,000 total) by unit) mouth once capsule a week. ergocalcife 2022-0 2023- No [id number] Q7D Take [address] rol 5-28 05-28 capsule [facility] (ERGOCALCIF 00:00: 23:59 (50,000 Me dical QIAN) 1,250 00 :00 Units Center mcg (50,000 total) by unit) mouth once capsule a week. ergocalcife 2022-0 2023- No [id number] Q7D Take [address] rol 5-28 05-28 capsule [facility] (ERGOCALCIF 00:00: 23:59 (50,000 Me dical QIAN) 1,250 00 :00 Units Center mcg (50,000 total) by unit) mouth once capsule a week. ergocalcife 2022-0 2023- No [id number] Q7D Take [address] rol 5-28 05-28 capsule [facility] (ERGOCALCIF 00:00: 23:59 (50,000 Me dical QIAN) 1,250 00 :00 Units Center mcg (50,000 total) by unit) mouth once capsule a week. ergocalcife 2022-0 2023- No [id number] Q7D Take [address] rol 08-20- capsule [facility] (ERGOCALCIF 00:00: 23:59 (50,000 Me dical QIAN) 1,250 00 :00 Units [place] mcg (50,000 total) by unit) mouth once capsule a week. levETIRAcet 2021- No 1000mg Q24H Inject [facility] am (KEPPRA) 08-20 1,000 mg [facility] IVPB 00:00: 00:00 intravenou Medica l 00 :00 sly daily. [place] levETIRAcet 2021- No 1000mg Q24H Inject [facility] am (KEPPRA) 08-20 1,000 mg [facility] IVPB 00:00: 00:00 intravenou Medica l 00 :00 sly daily. [place] levETIRAcet 2021- No 1000mg Q24H Inject [facility] am (KEPPRA) 08-20 1,000 mg [facility] IVPB 00:00: 00:00 intravenou Medica l 00 :00 sly daily. [place] pravastatin Yes 20mg QD Take [address] [facility] (PRAVACHOL) 5-27 by mouth [facility] 20 MG 13:34: daily. Medical tablet 05 [place] ascorbic Yes 500mg QD Take [address] [address] acid, 5-27 mg by [facility] vitamin C, 13:34: mouth Medica l (ASCORBIC 05 daily. [place] ACID WITH SKYLAR HIPS) 500 MG tablet carbidopa-l Yes 2{tbl} Q.[id number] Take [address] [facility] evodopa 5-27 [id number] tablets by [facility] (SINEMET) 13:34: 3D mouth 3 Medic al 25-100 mg 05 (three) [place] per tablet times daily. rotigotine Yes 1{patch QD Place [address] (NEUPRO) 6 5-27 } patch onto [facility] mg/24 hour 13:34: the skin Med ical 05 daily. [place] pravastatin Yes 20mg QD Take [address] [facility] (PRAVACHOL) 5-27 by mouth Luke [facility] 20 MG 13:34: daily. Medical tablet 05 [place] ascorbic 0 Yes 500mg QD Take [address] acid, 5-27 mg by [facility] vitamin C, 13:34: mouth Medica l (ASCORBIC 05 daily. Center ACID WITH SKYLAR HIPS) 500 MG tablet carbidopa-l 0 Yes 2{tbl} Q.[id number] Take [address] [facility] evodopa 5-27 [id number] tablets by [facility] (SINEMET) 13:34: 3D mouth 3 Medic al 25-100 mg 05 (three) Center per tablet times daily. rotigotine Yes 1{patch QD Place [address] (NEUPRO) 6 5-27 } patch onto [facility] mg/24 hour 13:34: the skin Med ical 05 daily. Center melatonin/p 0 Yes 10mg QD Take [address] [facility] yridoxine 5-27 by mouth [facility] (MELATONIN, 13:25: every Medic al WITH B6, 50 evening. Center ORAL) melatonin/p 0 Yes 10mg QD Take [address] [facility] yridoxine 5-27 by mouth [facility] (MELATONIN, 13:25: every Medic al WITH B6, 50 evening. Center ORAL) cholecalcif 0 2021- No 5000U QD Take 5,[address] [facility] qian, 5-27 05-27 Units by [employer] vitamin D3, 10:39: 00:00 mouth Medi kutr 5,000 unit 22 :00 daily. Center Tab [...] Center packet times daily. Missing or 2021-0 2021- No 2400mg Take 2,[address] [facility] [...] unit 22 :00 daily. Center Tab midodrine 2022-0 2022- No 5mg Q.5D Take [address] [facility] [address] [facility] (PROAMATINE 5-27 05-27 by mouth 2 L ukes ) 5 MG 10:39: 00:00 (two) Medical tablet 22 :00 times Center daily. potassium 2-0 2022- No 20meq Q.5D Take [address] [facility] chloride 5-27 05-27 mEq by [facility] (KLOR-CON) 10:39: 00:00 mouth 2 Med ical 20 mEq 22 :00 (two) Center packet times daily. Missing or 2021-0 202- No 2400mg Take 2,[address] [facility] Non-Formula 5-27 05-27 mg by [facility] ry 10:39: 00:00 mouth 3 Medical Medication 22 :00 (three) Center times daily as needed Sevelamer Powder 2400 mg orally 3 times a day as needed with meals. (Patient takes sevelamer powder due to she is unable to swallow the pills) . cholecalcif 2-0 2022- No 5000U QD Take 5,[address] [facility] qian, 5-27 05-27 Units by [facility] vitamin D3, 10:39: 00:00 mouth Medi kurt 5,000 unit 22 :00 daily. Center Tab midodrine 2022-0 2022- No 5mg Q.5D Take [address] [facility] [address] [facility] (PROAMATINE 5-27 05-27 by mouth 2 L ukes ) 5 MG 10:39: 00:00 (two) Medical tablet 22 :00 times Center daily. potassium 2-0 2022- No 20meq Q.5D Take [address] [facility] chloride 5-27 05-27 mEq by [facility] (KLOR-CON) 10:39: 00:00 mouth 2 Med ical 20 mEq 22 :00 (two) Center packet times daily. Missing or 202- No 2400mg Take 2,[address] [facility] [...] take PO juice or soda). glucagon 1 2022-0 Yes 1mg Inject [address] [facility] mg/mL [...] 00 :00 route Center syrup daily. gentamicin 2021-2022- No 1{appli Apply [address] [facility] (GARAMYCIN) [...] St en 08-19- tablets [facility] (TYLENOL) 00:00: 23:59 (650 mg [...] Place [address] [facility] (DULCOLAX) 08-19- suppositor Pl[place] kes 10 mg 00:00: 00:00 y (10 [...] 40mg QD Inject [address] [facility] e 08-19-02 mg [facility] (PROTONIX) 00:00: 00:00 intravenou Medical [...] Pt Center takes when HR>100 . ferrous 2-0 2022- No 324mg Take 324 [...] 5,000 UT qian (D3-5) 5-10 Units by [facility] 5,000 Units 10:53: mouth 1 tablet 50 (one) time each day. midodrine Yes Take 2 UT (Proamatine 5-10 tablets [facility] h ) 5 MG 10:53: twice tablet 50 daily rotigotine 2021- No [id number] 1{patch QD Place 1 UT (Neupro) 6 08-0208 } patch on [facility] th MG/24HR 00:00: 00:00 the skin 1 00 :00 (one) time each day. carbidopa-l 2021- No [id number] 2{tbl} Q.06488631 Take 2 UT evodopa -01 03- [id number] tablets by Health (Sinemet) 00:00: 00:00 3D mouth 3 25-100 MG 00 :00 (three) tablet times a day. rotigotine 2021- No [id number] 1{patch QD Place 1 UT (Neupro) 6 08-0208 } patch on [facility] th MG/24HR 00:00: 00:00 the skin 1 00 :00 (one) time each day. carbidopa-l 2021- No [id number] 2{tbl} Q.[id number] Take 2 [facility] evodopa -01 03- [id number] tablets by Health (Sinemet) 00:00: 00:00 3D mouth 3 25-100 MG 00 :00 (three) tablet times a day. ondansetron 2- No [id number] 8mg Q.90047784 Take 1 UT (Zofran) 8 -01 03- [id number] tablet (8 Health MG tablet 00:00: 05:59 3D mg total) 00 :00 by mouth 3 (three) times a day. rotigotine 2021- No [id number] 1{patch QD Place 1 UT (Neupro) 6 08-0207 } patch on Heal th MG/24HR 00:00: 05:59 the skin 1 00 :00 (one) time each day. carbidopa-l 2021-0 2022- No [id number] 2{tbl} Q.87982869 Take 2 UT evodopa 5-10 11-07 [id number] tablets by Health (Sinemet) 00:00: 05:59 3D [...] 00:00: (two) 00 times a day. sevelamer 0 Yes MIX 1 UT carbonate 2-24 PACKET AND Heal th (Renvela) 00:00: DRINK 2.4 g 00 THREE packet TIMES DAILY sevelamer 2021-0 Yes MIX 1 UT carbonate 2-24 PACKET AND Heal th (Renvela) 00:00: DRINK 2.4 g 00 THREE packet TIMES DAILY sevelamer 2021-0 Yes MIX 1 UT carbonate 2-24 PACKET AND Heal (Renvela) 00:00: DRINK 2.4 g 00 THREE [...] 00 (one) time tablet each day. Ascorbic 2021-0 Yes 1{tbl} QD Take 1 [...] tablet each day. ondansetron 2021- No 8mg Q.11572533 Take 8 mg UT (Zofran) 8 2- 05-10 [id number] by mouth 3 Health MG tablet 00:00: [...] 00 :00 daily. Center ELIQUIS 5 2019-0 2022- No 5mg Q.5D 5 mg 2 [facility] tablet 10-22 (two) [facility] 00:[facility]: 00:00 times Medical 00 :00 daily. Center ELIQUIS 5 2019-0 2- No 5mg Q.5D 5 mg 2 [facility] MG tablet 10-22 (two) [facility] 00:00: 00:00 times Medical 00 :00 daily. Center ELIQUIS 5 2019-2021- No 5mg Q.5D 5 mg 2 [facility] MG tablet 10-22 (two) [facility] 00:00: 00:00 times Medical 00 :00 daily. Center spironolact 2020-0 2022- No 25mg QD Take [...] 25 MG 00 :00 Center tablet ascorbic 2018-03 Yes 500mg Take 500 [facility] acid, 1-04 mg by ity of vitamin C, 16:36: mouth. [place] 500 mg Medical tablet Branch calcitriol 2018-03 Yes .25ug Take 0.25 U nivers 0.25 mcg 1-04 mcg by ity of capsule 16:36: mouth. [place] [address] Medical Branch Cholecalcif 2018-03 Yes 5000U Take [...] by ity o f 16:36: mouth at [place] [address] bedtime. Medical Branch ascorbic 2018-03 Yes 500mg Take 500 [facility] acid, 1-04 mg by ity of vitamin C, 16:36: mouth. [place] 500 mg Medical tablet Branch calcitriol 2018-03 Yes .25ug Take 0.25 U nivers 0.25 mcg 1-04 mcg by ity of capsule 16:36: mouth. [place] [address] Medical Branch Cholecalcif 2018-03 Yes 5000U Take [...] by ity o f 16:36: mouth at [place] [address] bedtime. Medical Branch ascorbic 2018-03 Yes 500mg Take 500 [facility] acid, 1-04 mg by ity of vitamin C, 16:36: mouth. [place] 500 mg Medical tablet Branch calcitriol 2018-03 Yes .25ug Take 0.25 U nivers 0.25 mcg 1-04 mcg by ity of capsule 16:36: mouth. [place] [address] Medical Branch Cholecalcif 2018-03 Yes 5000U Take [...] by ity o f 16:36: mouth at [place] [address] bedtime. Medical Branch ascorbic 2018-03 Yes 500mg Take 500 [facility] acid, 1-04 mg by ity of vitamin C, 16:36: mouth. [place] 500 mg Medical tablet Branch calcitriol 2018-03 Yes .25ug Take 0.25 U nivers 0.25 mcg 1-04 mcg by ity of capsule 16:36: mouth. [place] [address] Medical Branch Cholecalcif 2018-03 Yes 5000U Take [...] by ity o f 16:36: mouth at [place] [address] bedtime. Medical Branch ascorbic 2018-03 Yes 500mg Take 500 [facility] acid, 1-04 mg by ity of vitamin C, 16:36: mouth. [place] 500 mg Medical tablet Branch calcitriol 2018-03 Yes .25ug Take 0.25 U nivers 0.25 mcg 1-04 mcg by ity of capsule 16:36: mouth. [place] [address] Medical Branch Cholecalcif 2018-03 Yes 5000U Take [...] by ity o f 16:36: mouth at [place] [address] bedtime. Medical Branch ascorbic 2018-03 Yes 500mg Take 500 [facility] acid, 1-04 mg by ity of vitamin C, 16:36: mouth. [place] 500 mg Medical tablet Branch calcitriol 2018-03 Yes .25ug Take 0.25 U nivers 0.25 mcg 1-04 mcg by ity of capsule 16:36: mouth. [place] [address] Medical Branch Cholecalcif 2018-03 Yes 5000U Take [...] by ity o f 16:36: mouth at [place] [address] bedtime. Medical Branch aspirin 81 2018-03 Yes 81mg Take 81 mg U nivers mg EC 1-04 by mouth ity of tablet 16:32: daily. [place] [address] Medical Branch glimepiride 2018-03 Yes 4mg Take 4 mg U nivers 4 mg tablet 1-04 by mouth ity of 16:32: daily with [place] 24 breakfast. Medical Branch aspirin 81 2018-03 Yes 81mg Take 81 mg U nivers mg EC 1-04 by mouth ity of tablet 16:32: daily. [place] [address] Medical Branch glimepiride 2018-03 Yes 4mg Take 4 mg U nivers 4 mg tablet 1-04 by mouth ity of 16:32: daily with [place] 24 breakfast. Medical Branch aspirin 81 2018-03 Yes 81mg Take 81 mg U nivers mg EC 1-04 by mouth ity of tablet 16:32: daily. [place] [address] Medical Branch glimepiride 2018-03 Yes 4mg Take 4 mg U nivers 4 mg tablet 1-04 by mouth ity of 16:32: daily with [place] 24 breakfast. Medical Branch aspirin 81 2018-03 Yes 81mg Take 81 mg U nivers mg EC 1-04 by mouth ity of tablet 16:32: daily. [place] [address] Medical Branch glimepiride 2018-03 Yes 4mg Take 4 mg U nivers 4 mg tablet 1-04 by mouth ity of 16:32: daily with [place] 24 breakfast. [facility] aspirin 81 2018-03 Yes 81mg Take 81 mg U nivers mg EC 1-04 by mouth ity of tablet 16:32: daily. [place] [id number] [facility] glimepiride 2018-03 Yes 4mg Take 4 mg [facility] nivers 4 mg tablet 1-04 by mouth ity of 16:32: daily with [place] 24 breakfast. [facility] aspirin 81 2018-03 Yes 81mg Take 81 mg [facility] nivers mg EC 1-04 by mouth ity of tablet 16:32: daily. [place] [id number] [facility] glimepiride 2018-03 Yes 4mg Take [...] ity o f Misc 00:00: ONCE DAILY [place] [facility] ONETOUCH 2018- Yes [facility] FLEX 0-02 DIRECTED ity o f Misc 00:00: [facility] [place] [facility] USE [facility] VERIO FLEX 0-02 DIRECTED ity o f Misc 00:00: ON[facility] DAILY [place] [facility] Yes USE [facility] VERIO FLEX 0-02 DIRECTED ity o f Misc 00:00: ONCE DAILY [place] [facility]- Yes USE [facility] VERIO FLEX 0-02 DIRECTED ity o f Misc 00:00: ONCE DAILY [place] [facility] ONETOUCH 2019- Yes USE [facility] VERIO FLEX 0-02 DIRECTED ity o f Misc 00:00: ONCE DAILY [place] [facility] clopidogrel 2019-0 Yes 75mg Take 75 mg [facility] 75 mg 6-17 by mouth. ity of tablet 00:00: [place] [facility] clopidogrel 2019-0 Yes 75mg Take 75 mg [facility] 75 mg 6-17 by mouth. ity of tablet 00:00: [place] [facility] clopidogrel 2019-0 Yes 75mg Take 75 mg [facility] 75 mg 6-17 by mouth. ity of tablet 00:00: [place] [facility] clopidogrel 2019-0 Yes 75mg Take [...] ity of hr patch 00:00: skin as [place] needed. [facility] Branch cloniDINE 2016- Yes 1{patch Apply 1 Un mike 0.3 mg/24 8-04 } Patch to ity of hr patch 00:00: skin as [place] needed. [facility] cloniDINE 2016- Yes 1{patch Apply 1 Un mike 0.3 mg/24 8-04 } Patch to ity of hr patch 00:00: skin as [place] needed. [facility] cloniDINE 2016- Yes 1{patch Apply 1 Un mike 0.3 mg/24 8-04 } Patch to ity of hr patch 00:00: skin as [place] needed. [facility] cloniDINE Yes 1{patch Apply 1 Un mike 0.3 mg/24 8-04 } Patch to ity of hr patch 00:00: skin as [place] needed. [facility] pravastatin Yes 20mg Take 20 mg [facility] 20 mg 8-02 by mouth ity of tablet 00:00: at [place] [address] bedtime. [facility] Branch pravastatin Yes 20mg Take 20 mg [facility] 20 mg 8-02 by mouth ity of tablet 00:00: at [place] [address] bedtime. [facility] Branch pravastatin Yes 20mg Take 20 mg [facility] 20 mg 8-02 by mouth ity of tablet 00:00: at [place] [address] bedtime. [facility] Branch pravastatin Yes 20mg Take 20 mg [facility] 20 mg 8-02 by mouth ity of tablet 00:00: at [place] [address] bedtime. [facility] Branch pravastatin Yes 20mg Take 20 mg [facility] 20 mg 8-02 by mouth ity of tablet 00:00: at [place] [address] bedtime. [facility] Branch pravastatin Yes 20mg Take 20 mg [facility] 20 mg 8-02 by mouth ity of tablet 00:00: at [place] [address] bedtime. Medical Branch atenolol 50 Yes 50mg Take 50 mg [facility] mg tablet 7-20 by mouth ity of 00:00: daily. [facility] Branch atenolol 50 Yes 50mg Take 50 mg [facility] mg tablet 7-20 by mouth ity of 00:00: daily. [facility] Branch atenolol 50 Yes 50mg Take 50 mg [facility] mg tablet 7-20 by mouth ity of 00:00: daily. [place] [facility] atenolol 50 Yes 50mg Take 50 mg [facility] mg tablet 7-20 by mouth ity of 00:00: daily. [facility] Branch atenolol 50 Yes 50mg Take 50 mg [facility] mg tablet 7-20 by mouth ity of 00:00: daily. [facility] Branch atenolol 50 Yes 50mg Take 50 mg [facility] mg tablet 7-20 by mouth ity of 00:00: daily. [facility] Branch JANUVIA 50 Yes 50mg Take 50 mg U nivers mg tablet 7-17 by mouth ity of 00:00: daily. Medical Branch JANUVIA 50 Yes 50mg Take 50 mg U nivers mg tablet 7-17 by mouth ity of 00:00: daily. [facility] JANUVIA 50 Yes 50mg Take 50 mg U nivers mg tablet 7-17 by mouth ity of 00:00: daily. [facility] JANUVIA 50 Yes 50mg Take 50 mg U nivers mg tablet 7-17 by mouth ity of 00:00: daily. [facility] JANUVIA 50 Yes 50mg Take 50 mg U nivers mg tablet 7-17 by mouth ity of 00:00: daily. [facility] JANUVIA 50 Yes 50mg Take [...] every [place] 00 evening. Medical Branch acetaminoph 2016-0 Yes 1{tbl} Take 1 Un mike en-codeine [...] every [place] 00 evening. Medical Branch acetaminoph 0 Yes 1{tbl} Take 1 Un mike en-codeine [...] every [place] 00 evening. Medical Branch acetaminoph 2016-0 Yes 1{tbl} Take 1 Un mike en-codeine [...] by mouth 2 ity of 00:00: (two) [place] times Medical daily. Branch BELSOMRA 10 Yes 10mg 10 mg Unive rs mg Tab 6-21 every ity of 00:00: evening. [facility] 10 Yes 10mg 10 mg Unive rs mg Tab 6-21 every ity of 00:00: evening. [facility] 10 Yes 10mg 10 mg Unive rs mg Tab 6-21 every ity of 00:00: evening. [facility] 10 Yes 10mg 10 mg Unive rs mg Tab 6-21 every ity of 00:00: evening. [facility] 10 Yes 10mg 10 mg Unive rs mg Tab 6-21 every ity of 00:00: evening. [facility] 10 Yes 10mg 10 mg Unive rs mg Tab 6-21 every ity of 00:00: evening. [facility] KLOR-CON Yes Univers M10 10 mEq 6-20 ity of tablet 00:00: [facility] KLCT-CON Yes Univers M10 10 mEq 6-20 ity of tablet 00:00: [facility] KLOR-CON Yes Univers M10 10 mEq 6-20 ity of tablet 00:00: [facility] KLOR-CON Yes Univers M10 10 mEq 6-20 ity of tablet 00:00: [facility] KLCT-CON Yes Univers M10 10 mEq 6-20 ity of tablet 00:00: [facility] KLOR-CON Yes Univers M10 10 mEq 6-20 ity of tablet 00:00: Medical Branch cloniDINE Yes .1mg Take 0.1 Univ ers 0.1 mg 5-25 mg by ity of tablet 00:00: mouth 2 [place] (two) Medical times Branch daily. cloniDINE 2017-0 Yes .1mg Take 0.1 Univ ers 0.1 mg 5-25 mg by ity of tablet 00:00: mouth 2 [place] (two) Medical times Branch daily. cloniDINE 2017-0 Yes .1mg Take 0.1 Univ ers 0.1 mg 5-25 mg by ity of tablet 00:00: mouth 2 [place] (two) Medical times Branch daily. cloniDINE 2017-0 Yes .1mg Take 0.1 Univ ers 0.1 mg 5-25 mg by ity of tablet 00:00: mouth 2 [place] (two) Medical times Branch daily. cloniDINE 2017-0 Yes .1mg Take 0.1 Univ ers 0.1 mg 5-25 mg by ity of tablet 00:00: mouth 2 [place] (two) Medical times Branch daily. cloniDINE 2017-0 Yes .1mg Take 0.1 Univ ers 0.1 mg 5-25 mg by ity of tablet 00:00: mouth 2 [place] (two) Medical times Branch daily. NIFEdipine 2017-0 Yes 90mg Take 90 mg U nivers XL 90 mg 24 5-24 by mouth ity of hr tablet 00:00: daily. [place] [facility] NIFEdipine 2017-0 Yes 90mg Take 90 mg U nivers XL 90 mg 24 5-24 by mouth ity of hr tablet 00:00: daily. [place] [facility] NIFEdipine 2017-0 Yes 90mg Take 90 mg U nivers XL 90 mg 24 5-24 by mouth ity of hr tablet 00:00: daily. [place] [facility] NIFEdipine 2017-0 Yes 90mg Take 90 mg U nivers XL 90 mg 24 5-24 by mouth ity of hr tablet 00:00: daily. [place] [facility] NIFEdipine 2017-0 Yes 90mg Take 90 mg U nivers XL 90 mg 24 5-24 by mouth ity of hr tablet 00:00: daily. [address] NIFEdipine 2017-0 Yes 90mg Take 90 mg U nivers XL 90 mg 24 5-24 by mouth ity of hr tablet 00:00: daily. [address] hydroCHLORO 2017-0 Yes Univer s thiazide 25 5-23 ity of mg tablet 00:00: [address] hydroCHLORO 2017-0 Yes Univer s thiazide 25 5-23 ity of mg tablet 00:00: [place] [facility] hydroCHLORO Yes Univer s thiazide 25 5-23 ity of mg tablet 00:00: [place] [facility] hydroCHLORO Yes Univer s thiazide 25 5-23 ity of mg tablet 00:00: [place] [facility] hydroCHLORO Yes Univer s thiazide 25 5-23 ity of mg tablet 00:00: [place] [facility] hydroCHLORO Yes Univer s thiazide 25 5-23 ity of mg tablet 00:00: [place] [facility] NIFEdipine Yes Essential 90mg QD Take 1 [facility] (PROCARDIA 4-06 hypertensio tablet by [employer]) 90 mg 00:00: n, benign mouth extended 00 daily. release tablet NIFEdipine Yes Essential 30mg QD Take 1 [facility] (PROCARDIA 4-06 hypertensio tablet by [facility]) 30 mg 00:00: n, benign mouth extended 00 daily Take release in tablet addition to 90 mg to make 120 mg daily. 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 release tablet NIFEdipine Yes Essential 30mg QD Take 1 [facility] (PROCARDIA 4-06 hypertensio tablet by [employer]) 30 mg 00:00: n, benign mouth extended 00 daily Take release in tablet addition to 90 mg to make 120 mg daily. metFORMIN Yes Type 2 1000mg Take 2 [facility] (GLUCOPHAGE 4-06 diabetes tablets by [employer] ) 500 mg 00:00: mellitus mouth 2 tablet 00 with times diabetic daily nephropathy (with , meals) unspecified Increased senior living dose. insulin use status NIFEdipine Yes Essential 90mg QD Take 1 [facility] (PROCARDIA 4-06 hypertensio tablet by [employer]) 90 mg 00:00: n, benign mouth extended 00 daily. release tablet NIFEdipine Yes Essential 30mg QD Take 1 [facility] (PROCARDIA 4-06 hypertensio tablet by [employer]) 30 mg 00:00: n, benign mouth extended 00 daily Take release in tablet addition to 90 mg to make 120 mg daily. metFORMIN 2017-0 Yes Type 2 1000mg Take 2 [facility] (GLUCOPHAGE 4-06 diabetes tablets by [employer] ) 500 mg 00:00: mellitus mouth 2 tablet 00 with times diabetic daily nephropathy (with , meals) unspecified Increased senior living dose. insulin use status NIFEdipine Yes Essential 90mg QD Take 1 [facility] (PROCARDIA 4-06 hypertensio tablet by [employer]) 90 mg 00:00: n, benign mouth extended 00 daily. release tablet NIFEdipine 0 Yes Essential 30mg QD Take 1 [facility] (PROCARDIA 4-06 hypertensio tablet by [employer]) 30 mg 00:00: n, benign mouth extended 00 daily Take release in tablet addition to 90 mg to make 120 mg daily. metFORMIN Yes Type 2 1000mg Take 2 [facility] (GLUCOPHAGE 4-06 diabetes tablets by [employer] ) 500 mg 00:00: mellitus mouth 2 tablet 00 with times diabetic daily nephropathy (with , meals) unspecified Increased senior living dose. insulin use status NIFEdipine Yes Essential 90mg QD Take 1 [facility] (PROCARDIA 4-06 hypertensio tablet by [employer]) 90 mg 00:00: n, benign mouth extended 00 daily. release tablet NIFEdipine Yes Essential 30mg QD Take 1 [facility] (PROCARDIA 4-06 hypertensio tablet by [employer]) 30 mg 00:00: n, benign mouth extended 00 daily Take release in tablet addition to 90 mg to make 120 mg daily. 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 release tablet NIFEdipine 0 Yes Essential 30mg QD Take 1 [facility] (PROCARDIA 4-06 hypertensio tablet by [employer]) 30 mg 00:00: n, benign mouth extended 00 daily Take release in tablet addition to 90 mg to make 120 mg daily. 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 release tablet NIFEdipine Yes Essential 30mg QD Take 1 [facility] (PROCARDIA 4-06 hypertensio tablet by [employer]) 30 mg 00:00: n, benign mouth extended 00 daily Take release in tablet addition to 90 mg to make 120 mg daily. 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 release tablet NIFEdipine Yes Essential 30mg QD Take 1 [facility] (PROCARDIA 4-06 hypertensio tablet by [employer]) 30 mg 00:00: n, benign mouth extended 00 daily Take release in tablet addition to 90 mg to make 120 mg daily. metFORMIN Yes Type 2 1000mg Q.5D Take 2 [facility] (GLUCOPHAGE 4-06 diabetes tablets by [employer] ) 500 mg 00:00: mellitus mouth 2 tablet 00 with times diabetic daily nephropathy (with , meals) unspecified Increased senior living dose. insulin use status NIFEdipine Yes Essential 90mg QD Take 1 [facility] (PROCARDIA 4-06 hypertensio tablet by [employer]) 90 mg 00:00: n, benign mouth extended 00 daily. release tablet NIFEdipine 0 Yes Essential 30mg QD Take 1 [facility] (PROCARDIA 4-06 hypertensio tablet by [employer]) 30 mg 00:00: n, benign mouth extended 00 daily Take release in tablet addition to 90 mg to make 120 mg daily. 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 release tablet NIFEdipine 0 Yes Essential 30mg QD Take 1 [facility] (PROCARDIA 4-06 hypertensio tablet by [employer]) 30 mg 00:00: n, benign mouth extended 00 daily Take release in tablet addition to 90 mg to make 120 mg daily. metFORMIN Yes Type 2 1000mg Q.5D Take 2 [facility] (GLUCOPHAGE 4-06 diabetes tablets by [employer] ) 500 mg 00:00: mellitus mouth 2 tablet 00 with times diabetic daily nephropathy (with , meals) unspecified Increased senior living dose. insulin use status NIFEdipine Yes Essential 90mg QD Take 1 [facility] (PROCARDIA 4-06 hypertensio tablet by [employer]) 90 mg 00:00: n, benign mouth extended 00 daily. release tablet NIFEdipine Yes Essential 30mg QD Take 1 [facility] (PROCARDIA 4-06 hypertensio tablet by [employer]) 30 mg 00:00: n, benign mouth extended 00 daily Take release in tablet addition to 90 mg to make 120 mg daily. 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 release tablet NIFEdipine Yes Essential 30mg QD Take 1 [facility] (PROCARDIA 4-06 hypertensio tablet by [employer]) 30 mg 00:00: n, benign mouth extended 00 daily Take release in tablet addition to 90 mg to make 120 mg daily. metFORMIN Yes Type 2 1000mg Q.5D Take 2 [facility] (GLUCOPHAGE 4-06 diabetes tablets by [employer] ) 500 mg 00:00: mellitus mouth 2 tablet 00 with times diabetic daily nephropathy (with , meals) unspecified Increased senior living dose. insulin use status NIFEdipine Yes Essential 90mg QD Take 1 [facility] (PROCARDIA 4-06 hypertensio tablet by [employer]) 90 mg 00:00: n, benign mouth extended 00 daily. release tablet NIFEdipine Yes Essential 30mg QD Take 1 [facility] (PROCARDIA 4-06 hypertensio tablet by [employer]) 30 mg 00:00: n, benign mouth extended 00 daily Take release in tablet addition to 90 mg to make 120 mg daily. 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 release tablet NIFEdipine Yes Essential 30mg QD Take 1 [facility] (PROCARDIA 4-06 hypertensio tablet by [employer]) 30 mg 00:00: n, benign mouth extended 00 daily Take release in tablet addition to 90 mg to make 120 mg daily. 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 release tablet NIFEdipine Yes Essential 30mg QD Take 1 [facility] (PROCARDIA 4-06 hypertensio tablet by [employer]) 30 mg 00:00: n, benign mouth extended 00 daily Take release in tablet addition to 90 mg to make 120 mg daily. metFORMIN 2016-0 Yes Type 2 1000mg Take 2 [facility] (GLUCOPHAGE 4-06 diabetes tablets by [employer] ) 500 mg 00:00: mellitus mouth 2 tablet 00 with times diabetic daily nephropathy (with , meals) unspecified Increased senior living dose. insulin use status NIFEdipine 0 Yes Essential 90mg QD Take 1 [facility] (PROCARDIA 4-06 hypertensio tablet by [employer]) 90 mg 00:00: n, benign mouth extended 00 daily. release tablet NIFEdipine Yes Essential 30mg QD Take 1 [facility] (PROCARDIA 4-06 hypertensio tablet by [employer]) 30 mg 00:00: n, benign mouth extended 00 daily Take release in tablet addition to 90 mg to make 120 mg daily. 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 furosemide Yes Essential 40mg Take 1 [facility] (LASIX) 40 06-23 hypertensio tablet by [facility] mg tablet 00:00: n mouth 00 every 8 hours If needed you can increase to 2 pills (80mg) every 8 hours. ergocalcife Yes Vitamin D [id number] Take 1 [facility] rol 06-23 deficiency capsule by [facility] (VITAMIN 00:00: mouth D2) 50,000 00 weekly. unit capsule hydrALAZINE Yes Essential 100mg Take 1 [facility] (APRESOLINE 06-23 hypertensio tablet by [facility] ) 100 mg 00:00: n mouth 3 tablet 00 times daily. aspirin Yes Essential 81mg QD Chew and H [facility] (ASPIRIN) 06-23 hypertensio swallow 1 Health 81 mg 00:00: n tablet by chewable 00 mouth tablet daily. pravastatin Yes Dyslipidemi 20mg Take 1 [facility] (PRAVACHOL) 06-23 a tablet by [facility] 20 mg 00:00: mouth at tablet 00 bedtime nightly Decreased dose. glimepiride Yes Type 2 DM 8mg QD Take 2 [facility] (AMARYL) 4 06-23 with CKD tablets by [facility] mg tablet 00:00: stage 4 and mouth 00 hypertensio every n morning (before breakfast) . lisinopril Yes Essential 40mg QD Take 1 [facility] (ZESTRIL) 3 hypertensio tablet by [facility] 40 mg 00:00: n mouth tablet 00 daily. NIFEdipine Yes Essential 30mg QD Take 1 [facility] (PROCARDIA 3-31 hypertensio tablet by [facility] XL) 30 mg 00:00: n mouth extended 00 daily Take release in tablet addition to Nifedipine 90mg to make a total of 120 mg daily. cloNIDine Yes Essential 1{patch Apply 1 [facility] (CATAPRES-T 3- hypertensio } Patch to [facility] TS-3) 0.3 00:00: n skin as mg/24 hr 00 directed patch weekly Switch Clonidine 0.3 mg tablet to [facility] patch. atenolol Yes Essential 100mg QD Take 2 [facility] (TENORMIN) 3-31 hypertensio tablets by [facility] 50 mg 00:00: n mouth tablet 00 daily. furosemide Yes Essential 40mg Take 1 [facility] (LASIX) 40 06-23 hypertensio tablet by [facility] mg tablet 00:00: n mouth 00 every 8 hours If needed you can increase to 2 pills (80mg) every 8 hours. ergocalcife Yes Vitamin D [id number] Take 1 [facility] rol 3 deficiency capsule by [facility] (VITAMIN 00:00: mouth D2) 50,000 00 weekly. unit capsule hydrALAZINE Yes Essential 100mg Take 1 [facility] (APRESOLINE 06-23 hypertensio tablet by [facility] ) 100 mg 00:00: n mouth 3 tablet 00 times daily. aspirin Yes Essential 81mg QD Chew and [facility] (ASPIRIN) 06-23 hypertensio swallow 1 [facility] 81 mg 00:00: n tablet by chewable 00 mouth tablet daily. pravastatin Yes Dyslipidemi 20mg Take 1 [facility] (PRAVACHOL) 06-23 a tablet by [facility] 20 mg 00:00: mouth at tablet 00 bedtime nightly Decreased dose. glimepiride Yes Type 2 DM 8mg QD Take 2 [facility] (AMARYL) 4 06-23 with CKD tablets by [facility] mg tablet 00:00: stage 4 and mouth 00 hypertensio every n morning (before breakfast) . lisinopril Yes Essential 40mg QD Take 1 [facility] (ZESTRIL) 3 hypertensio tablet by [facility] 40 mg 00:00: n mouth tablet 00 daily. NIFEdipine Yes Essential 30mg QD Take 1 [facility] (PROCARDIA 3-31 hypertensio tablet by [facility] XL) 30 mg 00:00: n mouth extended [...] H arris (TENORMIN) 3-31 hypertensio tablets by [facility] 50 mg 00:00: n mouth tablet 00 daily. furosemide Yes Essential 40mg Take 1 [facility] (LASIX) 40 - hypertensio tablet by [facility] mg tablet 00:00: n mouth 00 every 8 hours If needed you can increase to 2 pills (80mg) every 8 hours. ergocalcife Yes Vitamin D [id number] Take 1 [facility] rol 06-23 deficiency capsule by [facility] (VITAMIN 00:00: mouth D2) 50,000 00 weekly. unit capsule hydrALAZINE Yes Essential 100mg Take 1 [facility] (APRESOLINE 06-23 hypertensio tablet by [facility] ) 100 mg 00:00: n mouth 3 tablet 00 times daily. aspirin Yes Essential 81mg QD Chew and [facility] (ASPIRIN) 06-23 hypertensio swallow 1 [facility] 81 mg 00:00: n tablet by chewable 00 mouth tablet daily. pravastatin Yes Dyslipidemi 20mg Take 1 [facility] (PRAVACHOL) 06-23 a tablet by [facility] 20 mg 00:00: mouth at tablet 00 bedtime nightly Decreased dose. glimepiride Yes Type 2 DM 8mg QD Take 2 [facility] (AMARYL) 4 06-23 with CKD tablets by [facility] mg tablet 00:00: stage 4 and mouth 00 hypertensio every n morning (before breakfast) . lisinopril Yes Essential 40mg QD Take 1 [facility] (ZESTRIL) 3 hypertensio tablet by [facility] 40 mg 00:00: n mouth tablet 00 daily. NIFEdipine Yes Essential 30mg QD Take 1 [facility] (PROCARDIA 06-23 hypertensio tablet by [facility] XL) 30 mg 00:00: n mouth extended 00 daily Take release in tablet addition to Nifedipine 90mg to make a total of 120 mg daily. cloNIDine Yes Essential 1{patch Apply 1 [facility] (CATAPRES-T 3- hypertensio } Patch to [facility]-3) 0.3 00:00: n skin as mg/24 hr 00 directed patch weekly Switch Clonidine 0.3 mg tablet to [facility] patch. atenolol Yes Essential 100mg QD Take 2 [facility] (TENORMIN) 06-23 hypertensio tablets by [facility] 50 mg 00:00: n mouth tablet 00 daily. furosemide Yes Essential 40mg Take 1 [facility] (LASIX) 40 06-23 hypertensio tablet by [facility] mg tablet 00:00: n mouth 00 every 8 hours If needed you can increase to 2 pills (80mg) every 8 hours. ergocalcife Yes Vitamin D [id number] Take 1 [facility] rol 06-23 deficiency capsule by [facility] (VITAMIN 00:00: mouth D2) 50,000 00 weekly. unit capsule hydrALAZINE Yes Essential 100mg Take 1 [facility] (APRESOLINE 06-23 hypertensio tablet by [facility] ) 100 mg 00:00: n mouth 3 tablet 00 times daily. aspirin Yes Essential 81mg QD Chew and H [facility] (ASPIRIN) 06-23 hypertensio swallow 1 [facility] 81 mg 00:00: n tablet by chewable 00 mouth tablet daily. pravastatin Yes Dyslipidemi 20mg Take 1 [facility] (PRAVACHOL) 06-23 a tablet by [facility] 20 mg 00:00: mouth at tablet 00 bedtime nightly Decreased dose. glimepiride Yes Type 2 DM 8mg QD Take 2 [facility] (AMARYL) 4 06-23 with CKD tablets by [facility] mg tablet 00:00: stage 4 and mouth 00 hypertensio every n morning (before breakfast) . lisinopril Yes Essential 40mg QD Take 1 [facility] (ZESTRIL) 06-23 hypertensio tablet by [facility] 40 mg 00:00: n mouth tablet 00 daily. NIFEdipine Yes Essential 30mg QD Take 1 [facility] (PROCARDIA 06-23 hypertensio tablet by [facility] XL) 30 mg 00:00: n mouth extended 00 daily Take release in tablet addition to Nifedipine 90mg to make a total of 120 mg daily. cloNIDine Yes Essential 1{patch Apply 1 [facility] (CATAPRES-T -31 hypertensio } Patch to [facility] TS-3) 0.3 00:00: n skin as mg/24 hr 00 directed patch weekly Switch Clonidine 0.3 mg tablet to [facility] patch. atenolol Yes Essential 100mg QD Take 2 [facility] (TENORMIN) 06-23 hypertensio tablets by [facility] 50 mg 00:00: n mouth tablet 00 daily. furosemide Yes Essential 40mg Take 1 [facility] (LASIX) 40 06-23 hypertensio tablet by [facility] mg tablet 00:00: n mouth 00 every 8 hours If needed you can increase to 2 pills (80mg) every 8 hours. ergocalcife Yes Vitamin D 04405N Take 1 [place] rol 06-23 deficiency capsule by [facility] (VITAMIN 00:00: mouth D2) 50,000 00 weekly. unit capsule hydrALAZINE Yes Essential 100mg Take 1 [facility] (APRESOLINE 06-23 hypertensio tablet by [facility] ) 100 mg 00:00: n mouth 3 tablet 00 times daily. aspirin Yes Essential 81mg QD Chew and [facility] (ASPIRIN) 06-23 hypertensio swallow 1 [facility] 81 mg 00:00: n tablet by chewable 00 mouth tablet daily. pravastatin Yes Dyslipidemi 20mg Take 1 [place] (PRAVACHOL) 06-23 a tablet by [facility] 20 mg 00:00: mouth at tablet 00 bedtime nightly Decreased dose. glimepiride Yes Type 2 DM 8mg QD Take 2 [facility] (AMARYL) 4 06-23 with CKD tablets by [facility] mg tablet 00:00: stage 4 and mouth 00 hypertensio every n morning (before breakfast) . lisinopril Yes Essential 40mg QD Take 1 [facility] (ZESTRIL) 06-23 hypertensio tablet by [facility] 40 mg 00:00: n mouth tablet 00 daily. NIFEdipine Yes Essential 30mg QD Take 1 [facility] (PROCARDIA 06-23 hypertensio tablet by [facility] XL) 30 mg 00:00: n mouth extended 00 daily Take release in tablet addition to Nifedipine 90mg to make a total of 120 mg daily. cloNIDine Yes Essential 1{patch Apply 1 [facility] (CATAPRES-T 06-23 hypertensio } Patch to [facility] TS-3) 0.3 00:00: n skin as mg/24 hr 00 directed patch weekly Switch Clonidine 0.3 mg tablet to Catapres patch. atenolol Yes Essential 100mg QD Take 2 [facility] (TENORMIN) 3- hypertensio tablets by [facility] 50 mg 00:00: n mouth tablet 00 daily. furosemide Yes Essential 40mg Take 1 [facility] (LASIX) 40 06-23 hypertensio tablet by [facility] mg tablet 00:00: n mouth 00 every 8 hours If needed you can increase to 2 pills (80mg) every 8 hours. ergocalcife Yes Vitamin D 25176B Take 1 [place] rol 06-23 deficiency capsule by [facility] (VITAMIN 00:00: mouth D2) 50,000 00 weekly. unit capsule hydrALAZINE Yes Essential 100mg Take 1 [facility] (APRESOLINE 06-23 hypertensio tablet by [facility] ) 100 mg 00:00: n mouth 3 tablet 00 times daily. aspirin Yes Essential 81mg QD Chew and [facility] (ASPIRIN) 06-23 hypertensio swallow 1 [facility] 81 mg 00:00: n tablet by chewable 00 mouth tablet daily. pravastatin Yes Dyslipidemi 20mg Take 1 [place] (PRAVACHOL) 06-23 a tablet by [facility] 20 mg 00:00: mouth at tablet 00 bedtime nightly Decreased dose. glimepiride Yes Type 2 DM 8mg QD Take 2 [facility] (AMARYL) 4 06-23 with CKD tablets by [facility] mg tablet 00:00: stage 4 and mouth 00 hypertensio every n morning (before breakfast) . lisinopril Yes Essential 40mg QD Take 1 [facility] (ZESTRIL) 06-23 hypertensio tablet by [facility] 40 mg 00:00: n mouth tablet 00 daily. NIFEdipine Yes Essential 30mg QD Take 1 [facility] (PROCARDIA 06-23 hypertensio tablet by [facility] XL) 30 mg 00:00: n mouth extended 00 daily Take release in tablet addition to Nifedipine 90mg to make a total of 120 mg daily. cloNIDine Yes Essential 1{patch Apply 1 [facility] (CATAPRES-T 06-23 hypertensio } Patch to [facility] TS-3) 0.3 00:00: n skin as mg/24 hr 00 directed patch weekly Switch Clonidine 0.3 mg tablet to [facility] patch. atenolol Yes Essential 100mg QD Take 2 [facility] (TENORMIN) 3 hypertensio tablets by [facility] 50 mg 00:00: n mouth tablet 00 daily. furosemide Yes Essential 40mg Take 1 [facility] (LASIX) 40 06-23 hypertensio tablet by [facility] mg tablet 00:00: n mouth 00 every 8 hours If needed you can increase to 2 pills (80mg) every 8 hours. ergocalcife Yes Vitamin D 34654G Take 1 [place] rol 06-23 deficiency capsule by [facility] (VITAMIN 00:00: mouth D2) 50,000 00 weekly. unit capsule hydrALAZINE Yes Essential 100mg Take 1 [facility] (APRESOLINE 06-23 hypertensio tablet by [facility] ) 100 mg 00:00: n mouth 3 tablet 00 times daily. aspirin Yes Essential 81mg QD Chew and [facility] (ASPIRIN) 06-23 hypertensio swallow 1 [facility] 81 mg 00:00: n tablet by chewable 00 mouth tablet daily. pravastatin Yes Dyslipidemi 20mg Take 1 [place] (PRAVACHOL) 06-23 a tablet by [facility] 20 mg 00:00: mouth at tablet 00 bedtime nightly Decreased dose. glimepiride Yes Type 2 DM 8mg QD Take 2 [facility] (AMARYL) 4 06-23 with CKD tablets by [facility] mg tablet 00:00: stage 4 and mouth 00 hypertensio every n morning (before breakfast) . lisinopril Yes Essential 40mg QD Take 1 [place] (ZESTRIL) 06-23 hypertensio tablet by [facility] 40 mg 00:00: n mouth tablet 00 daily. NIFEdipine Yes Essential 30mg QD Take 1 [facility] (PROCARDIA 06-23 hypertensio tablet by [facility] XL) 30 mg 00:00: n mouth extended 00 daily Take release in tablet addition to Nifedipine 90mg to make a total of 120 mg daily. cloNIDine Yes Essential 1{patch Apply 1 [facility] (CATAPRES-T 06-23 hypertensio } Patch to [facility] TS-3) 0.3 00:00: n skin as mg/24 hr 00 directed patch weekly Switch Clonidine 0.3 mg tablet to [facility] patch. atenolol Yes Essential 100mg QD Take 2 [facility] (TENORMIN) 06-23 hypertensio tablets by [facility] 50 mg 00:00: n mouth tablet 00 daily. furosemide Yes Essential 40mg Take 1 [facility] (LASIX) 40 06-23 hypertensio tablet by [facility] mg tablet 00:00: n mouth 00 every 8 hours If needed you can increase to 2 pills (80mg) every 8 hours. ergocalcife Yes Vitamin D 56092V Take 1 [place] 06-23 deficiency capsule by [facility] (VITAMIN 00:00: mouth D2) 50,000 00 weekly. unit capsule hydrALAZINE Yes Essential 100mg Take 1 [facility] (APRESOLINE 06-23 hypertensio tablet by [facility] ) 100 mg 00:00: n mouth 3 tablet 00 times daily. aspirin Yes Essential 81mg QD Chew and [facility] (ASPIRIN) 06-23 hypertensio swallow 1 [facility] 81 mg 00:00: n tablet by chewable 00 mouth tablet daily. pravastatin Yes Dyslipidemi 20mg Take 1 [place] (PRAVACHOL) 06-23 a tablet by [facility] 20 mg 00:00: mouth at tablet 00 bedtime nightly Decreased dose. glimepiride Yes Type 2 DM 8mg QD Take 2 [facility] (AMARYL) 4 06-23 with CKD tablets by [facility] mg tablet 00:00: stage 4 and mouth 00 hypertensio every n morning (before breakfast) . lisinopril Yes Essential 40mg QD Take 1 [place] (ZESTRIL) 06-23 hypertensio tablet by [facility] 40 mg 00:00: n mouth tablet 00 daily. NIFEdipine Yes Essential 30mg QD Take 1 [facility] (PROCARDIA 06-23 hypertensio tablet by [facility] XL) 30 mg 00:00: n mouth extended 00 daily Take release in tablet addition to Nifedipine 90mg to make a total of 120 mg daily. cloNIDine Yes Essential 1{patch Apply 1 [facility] (CATAPRES-T 06-23 hypertensio } Patch to [facility] TS-3) 0.3 00:00: n skin as mg/24 hr 00 directed patch weekly Switch Clonidine 0.3 mg tablet to [facility] patch. atenolol Yes Essential 100mg QD Take 2 [facility] (TENORMIN) 3 hypertensio tablets by [facility] 50 mg 00:00: n mouth tablet 00 daily. furosemide Yes Essential 40mg Take 1 [facility] (LASIX) 40 06-23 hypertensio tablet by [facility] mg tablet 00:00: n mouth 00 every 8 hours If needed you can increase to 2 pills (80mg) every 8 hours. ergocalcife Yes Vitamin D 32997T Take 1 [place] 06-23 deficiency capsule by [facility] (VITAMIN 00:00: mouth D2) 50,000 00 weekly. unit capsule hydrALAZINE Yes Essential 100mg Take 1 [facility] (APRESOLINE 06-23 hypertensio tablet by [facility] ) 100 mg 00:00: n mouth 3 tablet 00 times daily. aspirin Yes Essential 81mg QD Chew and [facility] (ASPIRIN) 06-23 hypertensio swallow 1 [facility] 81 mg 00:00: n tablet by chewable 00 mouth tablet daily. pravastatin Yes Dyslipidemi 20mg Take 1 [place] (PRAVACHOL) 06-23 a tablet by [facility] 20 mg 00:00: mouth at tablet 00 bedtime nightly Decreased dose. glimepiride Yes Type 2 DM 8mg QD Take 2 [facility] (AMARYL) 4 06-23 with CKD tablets by [facility] mg tablet 00:00: stage 4 and mouth 00 hypertensio every n morning (before breakfast) . lisinopril Yes Essential 40mg QD Take 1 [place] (ZESTRIL) 06-23 hypertensio tablet by [facility] 40 mg 00:00: n mouth tablet 00 daily. NIFEdipine Yes Essential 30mg QD Take 1 [facility] (PROCARDIA 06-23 hypertensio tablet by [facility] XL) 30 mg 00:00: n mouth extended 00 daily Take release in tablet addition to Nifedipine 90mg to make a total of 120 mg daily. cloNIDine Yes Essential 1{patch Apply 1 [facility] (CATAPRES-T 06-23 hypertensio } Patch to [facility] TS-3) 0.3 00:00: n skin as mg/24 hr 00 directed patch weekly Switch Clonidine 0.3 mg tablet to [facility] patch. atenolol Yes Essential 100mg QD Take 2 [facility] (TENORMIN) 06-23 hypertensio tablets by [facility] 50 mg 00:00: n mouth tablet 00 daily. furosemide Yes Essential 40mg Take 1 [place] (LASIX) 40 06-23 hypertensio tablet by [facility] mg tablet 00:00: n mouth 00 every 8 hours If needed you can increase to 2 pills (80mg) every 8 hours. atenolol Yes Essential 100mg QD Take 2 [facility] (TENORMIN) 3-31 hypertensio tablets by [facility] 50 mg 00:00: n mouth tablet 00 daily. furosemide 2017- Yes Essential 40mg Take 1 [facility] (LASIX) 40 3-31 hypertensio tablet by [facility] mg tablet 00:00: n mouth 00 every 8 hours If needed you can increase to 2 pills (80mg) every 8 hours. ergocalcife 2017 Yes Vitamin D 86148J Take 1 [place] rol 3-31 deficiency capsule by [facility] (VITAMIN 00:00: mouth D2) 50,000 00 weekly. unit capsule hydrALAZINE Yes Essential 100mg Take 1 [facility] (APRESOLINE 3-31 hypertensio tablet by [facility] ) 100 mg 00:00: n mouth 3 tablet 00 times daily. aspirin Yes Essential 81mg QD Chew and [facility] (ASPIRIN) 3 hypertensio swallow 1 [facility] 81 mg 00:00: n tablet by chewable 00 mouth tablet daily. ergocalcife Yes Vitamin D 52811V Take 1 [place] rol 3-31 deficiency capsule by [facility] (VITAMIN 00:00: mouth D2) 50,000 00 weekly. unit capsule pravastatin Yes Dyslipidemi 20mg Take 1 [facility] (PRAVACHOL) 3 a tablet by [facility] 20 mg 00:00: mouth at tablet 00 bedtime nightly Decreased dose. glimepiride Yes Type 2 DM 8mg QD Take 2 [place] (AMARYL) 4 331 with CKD tablets by [facility] mg tablet 00:00: stage 4 and mouth 00 hypertensio every n morning (before breakfast) . lisinopril Yes Essential 40mg QD Take 1 [facility] (ZESTRIL) 3-31 hypertensio tablet by [facility] 40 mg 00:00: n mouth tablet 00 daily. NIFEdipine Yes Essential 30mg QD Take 1 [facility] (PROCARDIA 3-31 hypertensio tablet by [facility] XL) 30 mg 00:00: n mouth extended [...] 1 [facility] (APRESOLINE 3-31 hypertensio tablet by [facility] ) 100 mg 00:00: n mouth 3 tablet 00 times daily. aspirin Yes Essential 81mg QD Chew and [facility] (ASPIRIN) 3 hypertensio swallow 1 [facility] 81 mg 00:00: n tablet by chewable 00 mouth tablet daily. atenolol Yes Essential 100mg QD Take 2 [facility] (TENORMIN) 3- hypertensio tablets by [facility] 50 mg 00:00: n mouth tablet 00 daily. pravastatin Yes Dyslipidemi 20mg Take 1 [place] (PRAVACHOL) 3 a tablet by [facility] 20 mg 00:00: mouth at tablet 00 bedtime nightly Decreased dose. furosemide Yes Essential 40mg Take 1 [facility] (LASIX) 40 06-23 hypertensio tablet by [facility] mg tablet 00:00: n mouth 00 every 8 hours If needed you can increase to 2 pills (80mg) every 8 hours. ergocalcife Yes Vitamin D 34504L Take 1 [place] rol 3 deficiency capsule by [facility] (VITAMIN 00:00: mouth D2) 50,000 00 weekly. unit capsule hydrALAZINE Yes Essential 100mg Take 1 [facility] (APRESOLINE 3-31 hypertensio tablet by [facility] ) 100 mg 00:00: n mouth 3 tablet 00 times daily. aspirin Yes Essential 81mg QD Chew and [facility] (ASPIRIN) 3 hypertensio swallow 1 [facility] 81 mg 00:00: n tablet by chewable 00 mouth tablet daily. pravastatin Yes Dyslipidemi 20mg Take 1 [facility] (PRAVACHOL) 3 a tablet by [facility] 20 mg 00:00: mouth at tablet 00 bedtime nightly Decreased dose. glimepiride Yes Type 2 DM 8mg QD Take 2 [facility] (AMARYL) 4 3- with CKD tablets by [facility] mg tablet 00:00: stage 4 and mouth 00 hypertensio every n morning (before breakfast) . lisinopril Yes Essential 40mg QD Take 1 [facility] (ZESTRIL) 3-31 hypertensio tablet by [facility] 40 mg 00:00: n mouth tablet 00 daily. NIFEdipine Yes Essential 30mg QD Take 1 [facility] (PROCARDIA 3-31 hypertensio tablet by [facility] XL) 30 mg 00:00: n mouth extended [...] (AMARYL) 4 3-31 with CKD tablets by [facility] mg tablet 00:00: stage 4 and mouth 00 hypertensio every n morning (before breakfast) . lisinopril Yes Essential 40mg QD Take 1 [place] (ZESTRIL) 3-31 hypertensio tablet by [facility] 40 mg 00:00: n mouth tablet 00 daily. NIFEdipine Yes Essential 30mg QD Take 1 [facility] (PROCARDIA 3-31 hypertensio tablet by [facility] XL) 30 mg 00:00: n mouth extended 00 daily Take release in tablet addition to Nifedipine 90mg to make a total of 120 mg daily. atenolol Yes Essential 100mg QD Take 2 [facility] (TENORMIN) 3-31 hypertensio tablets by [facility] 50 mg 00:00: n mouth tablet 00 daily. furosemide Yes Essential 40mg Take 1 [facility] (LASIX) 40 3-31 hypertensio tablet by [facility] mg tablet 00:00: n mouth 00 every 8 hours If needed you can increase to 2 pills (80mg) every 8 hours. ergocalcife Yes Vitamin D 72436L Take 1 [place] rol [address] deficiency capsule by [facility] (VITAMIN 00:00: mouth D2) 50,000 00 weekly. unit capsule hydrALAZINE Yes Essential 100mg Take 1 [facility] (APRESOLINE 3-31 hypertensio tablet by [facility] ) 100 mg 00:00: n mouth 3 tablet 00 times daily. cloNIDine Yes Essential 1{patch Apply 1 [facility] (CATAPRES-T 3- hypertensio } Patch to [facility] TS-3) 0.3 00:00: n skin as mg/24 hr 00 directed patch weekly Switch Clonidine 0.3 mg tablet to [facility] patch. aspirin Yes Essential 81mg QD Chew and [facility] (ASPIRIN) 3 hypertensio swallow 1 [facility] 81 mg 00:00: n tablet by chewable 00 mouth tablet daily. pravastatin Yes Dyslipidemi 20mg Take 1 [place] (PRAVACHOL) 06-23 a tablet by [facility] 20 mg 00:00: mouth at tablet 00 bedtime nightly Decreased dose. glimepiride Yes Type 2 DM 8mg QD Take 2 [place] (AMARYL) 4 06-23 with CKD tablets by [facility] mg tablet 00:00: stage 4 and mouth 00 hypertensio every n morning (before breakfast) . lisinopril Yes Essential 40mg QD Take 1 [place] (ZESTRIL) 06-23 hypertensio tablet by [facility] 40 mg 00:00: n mouth tablet 00 daily. NIFEdipine Yes Essential 30mg QD Take 1 [facility] (PROCARDIA 06-23 hypertensio tablet by [facility] XL) 30 mg 00:00: n mouth extended 00 daily Take release in tablet addition to Nifedipine 90mg to make a total of 120 mg daily. cloNIDine Yes Essential 1{patch Apply 1 [facility] (CATAPRES-T 06-23 hypertensio } Patch to [facility] TS-3) 0.3 00:00: n skin as mg/24 hr 00 directed patch weekly Switch Clonidine 0.3 mg tablet to [facility] patch. atenolol Yes Essential 100mg QD Take 2 [facility] (TENORMIN) 06-23 hypertensio tablets by [facility] 50 mg 00:00: n mouth tablet 00 daily. furosemide Yes Essential 40mg Take 1 [facility] (LASIX) 40 06-23 hypertensio tablet by [facility] mg tablet 00:00: n mouth 00 every 8 hours If needed you can increase to 2 pills (80mg) every 8 hours. ergocalcife Yes Vitamin D 90413L Take 1 [place] [facility] 06-23 deficiency capsule by [facility] (VITAMIN 00:00: mouth D2) 50,000 00 weekly. unit capsule hydrALAZINE Yes Essential 100mg Take 1 [facility] (APRESOLINE 06-23 hypertensio tablet by [facility] ) 100 mg 00:00: n mouth 3 tablet 00 times daily. aspirin Yes Essential 81mg QD Chew and [facility] (ASPIRIN) 06-23 hypertensio swallow 1 [facility] 81 mg 00:00: n tablet by chewable 00 mouth tablet daily. pravastatin Yes Dyslipidemi 20mg Take 1 [place] (PRAVACHOL) 06-23 a tablet by [facility] 20 mg 00:00: mouth at tablet 00 bedtime nightly Decreased dose. glimepiride Yes Type 2 DM 8mg QD Take 2 [facility] (AMARYL) 4 06-23 with CKD tablets by [facility] mg tablet 00:00: stage 4 and mouth 00 hypertensio every n morning (before breakfast) . lisinopril Yes Essential 40mg QD Take 1 [place] (ZESTRIL) 06-23 hypertensio tablet by [facility] 40 mg 00:00: n mouth tablet 00 daily. NIFEdipine Yes Essential 30mg QD Take 1 [facility] (PROCARDIA 06-23 hypertensio tablet by [facility] XL) 30 mg 00:00: n mouth extended 00 daily Take release in tablet addition to Nifedipine 90mg to make a total of 120 mg daily. cloNIDine Yes Essential 1{patch Apply 1 [facility] (CATAPRES-T 06-23 hypertensio } Patch to [facility] TS-3) 0.3 00:00: n skin as mg/24 hr 00 directed patch weekly Switch Clonidine 0.3 mg tablet to [facility] patch. atenolol Yes Essential 100mg QD Take 2 [facility] (TENORMIN) 06-23 hypertensio tablets by [facility] 50 mg 00:00: n mouth tablet 00 daily. furosemide Yes Essential 40mg Take 1 [place] (LASIX) 40 06-23 hypertensio tablet by [facility] mg tablet 00:00: n mouth 00 every 8 hours If needed you can increase to 2 pills (80mg) every 8 hours. ergocalcife Yes Vitamin D 49586B Take 1 [place] [facility] 06-23 deficiency capsule by [facility] (VITAMIN 00:00: mouth D2) 50,000 00 weekly. unit capsule hydrALAZINE Yes Essential 100mg Take 1 [facility] (APRESOLINE 3-31 hypertensio tablet by [facility] ) 100 mg 00:00: n mouth 3 tablet 00 times daily. aspirin Yes Essential 81mg QD Chew and [facility] (ASPIRIN) 06-23 hypertensio swallow 1 [facility] 81 mg 00:00: n tablet by chewable 00 mouth tablet daily. pravastatin Yes Dyslipidemi 20mg Take 1 [place] (PRAVACHOL) 06-23 a tablet by [facility] 20 mg 00:00: mouth at tablet 00 bedtime nightly Decreased dose. glimepiride Yes Type 2 DM 8mg QD Take 2 [place] (AMARYL) 4 06-23 with CKD tablets by [facility] mg tablet 00:00: stage 4 and mouth 00 hypertensio every n morning (before breakfast) . lisinopril Yes Essential 40mg QD Take 1 [place] (ZESTRIL) 06-23 hypertensio tablet by [facility] 40 mg 00:00: n mouth tablet 00 daily. NIFEdipine Yes Essential 30mg QD Take 1 [facility] (PROCARDIA 06-23 hypertensio tablet by [facility] XL) 30 mg 00:00: n mouth extended 00 daily Take release in tablet addition to Nifedipine 90mg to make a total of 120 mg daily. cloNIDine Yes Essential 1{patch Apply 1 [facility] (CATAPRES-T 06-23 hypertensio } Patch to [facility] TS-3) 0.3 00:00: n skin as mg/24 hr 00 directed patch weekly Switch Clonidine 0.3 mg tablet to [facility] patch. atenolol Yes Essential 100mg QD Take 2 [facility] (TENORMIN) 06-23 hypertensio tablets by [facility] 50 mg 00:00: n mouth tablet 00 daily. furosemide Yes Essential 40mg Take 1 [facility] (LASIX) 40 06-23 hypertensio tablet by [facility] mg tablet 00:00: n mouth 00 every 8 hours If needed you can increase to 2 pills (80mg) every 8 hours. ergocalcife Yes Vitamin D 51716F Take 1 [place] rol 06-23 deficiency capsule by [facility] (VITAMIN 00:00: mouth D2) 50,000 00 weekly. unit capsule hydrALAZINE Yes Essential 100mg Take 1 [facility] (APRESOLINE -31 hypertensio tablet by [facility] ) 100 mg 00:00: n mouth 3 tablet 00 times daily. aspirin Yes Essential 81mg QD Chew and [facility] (ASPIRIN) 06-23 hypertensio swallow 1 [facility] 81 mg 00:00: n tablet by chewable 00 mouth tablet daily. pravastatin Yes Dyslipidemi 20mg Take 1 [place] (PRAVACHOL) 06-23 a tablet by [facility] 20 mg 00:00: mouth at tablet 00 bedtime nightly Decreased dose. glimepiride Yes Type 2 DM 8mg QD Take 2 [place] (AMARYL) 4 06-23 with CKD tablets by [facility] mg tablet 00:00: stage 4 and mouth 00 hypertensio every n morning (before breakfast) . lisinopril Yes Essential 40mg QD Take 1 [facility] (ZESTRIL) 06-23 hypertensio tablet by [facility] 40 mg 00:00: n mouth tablet 00 daily. NIFEdipine Yes Essential 30mg QD Take 1 [facility] (PROCARDIA 06-23 hypertensio tablet by [facility] XL) 30 mg 00:00: n mouth extended 00 daily Take release in tablet addition to Nifedipine 90mg to make a total of 120 mg daily. cloNIDine Yes Essential 1{patch Apply 1 [facility] (CATAPRES-T 06-23 hypertensio } Patch to [facility] TS-3) 0.3 00:00: n skin as mg/24 hr 00 directed patch weekly Switch Clonidine 0.3 mg tablet to [facility] patch. minoxidil Yes Essential 1.25mg Take 0.5 [place] (LONITEN) 1-27 hypertensio tablets by [facility] 2.5 mg 00:00: n mouth tablet 00 every 8 hours. minoxidil Yes Essential 1.25mg Take 0.5 [facility] (LONITEN) 1-27 hypertensio tablets by [facility] 2.5 mg 00:00: n mouth tablet 00 every 8 hours. minoxidil Yes Essential 1.25mg Take 0.5 [place] (LONITEN) 1-27 hypertensio tablets by [facility] 2.5 mg 00:00: n mouth tablet 00 every 8 hours. minoxidil Yes Essential 1.25mg Take 0.5 [place] (LONITEN) 1- hypertensio tablets by [facility] 2.5 mg 00:00: n mouth tablet 00 [...] 0.5 [facility] (LONITEN) 1-27 hypertensio tablets by [facility] 2.5 mg 00:00: n mouth tablet 00 every 8 hours. minoxidil Yes Essential 1.25mg Take 0.5 [facility] (LONITEN) 1-27 hypertensio tablets by [facility] 2.5 mg 00:00: n mouth tablet 00 every 8 hours. minoxidil Yes Essential 1.25mg Take 0.5 [facility] (LONITEN) 1-27 hypertensio tablets by [facility] 2.5 mg 00:00: n mouth tablet 00 every 8 hours. minoxidil Yes Essential 1.25mg Take 0.5 [facility] (LONITEN) 1-27 hypertensio tablets by [facility] 2.5 mg 00:00: n mouth tablet 00 every 8 hours. minoxidil Yes Essential 1.25mg Take 0.5 [facility] (LONITEN) 1-27 hypertensio tablets by [facility] 2.5 mg 00:00: n mouth tablet 00 every 8 hours. minoxidil Yes Essential 1.25mg Take 0.5 [facility] (LONITEN) 1-27 hypertensio tablets by [facility] 2.5 mg 00:00: n mouth tablet 00 every 8 hours. minoxidil Yes Essential 1.25mg Take 0.5 [facility] (LONITEN) 1-27 hypertensio tablets by [facility] 2.5 mg 00:00: n mouth tablet 00 every 8 hours. minoxidil Yes Essential 1.25mg Take 0.5 [facility] (LONITEN) 1-27 hypertensio tablets by [facility] 2.5 mg 00:00: n mouth tablet 00 every 8 hours. minoxidil 2017- Yes Essential 1.25mg Take 0.5 [facility] (LONITEN) 1-27 hypertensio tablets by [facility] 2.5 mg 00:00: n mouth tablet 00 every 8 hours. furosemide 2017- Yes CKD 40mg Q.5D Take 1 [facility] (LASIX) 40 1-23 (chronic tablet by [facility] mg tablet 00:00: kidney mouth 2 00 disease), times stage 3 daily. (moderate) potassium 2017- Yes Essential 10meq QD Take 1 [facility] chloride 1-23 hypertensio tablet by [facility] (KLOR-CON 00:00: n, benign mouth M10) 10 mEq 00 daily Take extended only with release lasix. tablet furosemide Yes CKD 40mg Q.5D Take 1 [facility] (LASIX) 40 1-23 (chronic tablet by [facility] mg tablet 00:00: kidney mouth 2 00 disease), times stage 3 daily. (moderate) potassium 2016- Yes Essential 10meq QD Take 1 [facility] chloride 1-23 hypertensio tablet by [facility] (KLOR-CON 00:00: n, benign mouth M10) 10 mEq 00 daily Take extended only with release lasix. tablet furosemide Yes CKD 40mg Q.5D Take 1 [facility] (LASIX) 40 1-23 (chronic tablet by [facility] mg tablet 00:00: kidney mouth 2 00 disease), times stage 3 daily. (moderate) potassium 2017- Yes Essential 10meq QD Take 1 [facility] chloride 1-23 hypertensio tablet by [facility] [employer] [facility] (KLOR-CON 00:00: n, benign mouth M10) 10 mEq 00 daily Take extended only with release lasix. tablet furosemide 2017-0 Yes CKD 40mg Q.5D Take 1 [facility] (LASIX) 40 1-23 (chronic tablet by [facility] mg tablet 00:00: kidney mouth 2 00 disease), times stage 3 daily. (moderate) potassium 2017-0 Yes Essential 10meq QD Take 1 [facility] chloride 1-23 hypertensio tablet by [facility] [employer] [facility] (KLOR-CON 00:00: n, benign mouth M10) 10 [...] 1 [facility] chloride 1-23 hypertensio tablet by [employer] (KLOR-CON 00:00: n, benign mouth M10) 10 mEq 00 daily Take extended only with release lasix. tablet furosemide 2017-0 Yes CKD 40mg Q.5D Take 1 [facility] (LASIX) 40 1-23 (chronic tablet by Health mg tablet 00:00: kidney mouth 2 00 disease), times stage 3 daily. (moderate) potassium 2017-0 Yes Essential 10meq QD Take 1 [facility] chloride 1-23 hypertensio tablet by [employer] (KLOR-CON 00:00: n, benign mouth M10) 10 mEq 00 daily Take extended only with release lasix. tablet furosemide 2017-0 Yes CKD 40mg Q.5D Take 1 [facility] (LASIX) 40 1-23 (chronic tablet by Health mg tablet 00:00: kidney mouth 2 00 disease), times stage 3 daily. (moderate) potassium 2017-0 Yes Essential 10meq QD Take 1 [facility] chloride 1-23 hypertensio tablet by [employer] (KLOR-CON 00:00: n, benign mouth M10) 10 [...] 1 [facility] chloride 1-23 hypertensio tablet by [employer] (KLOR-CON 00:00: n, benign mouth M10) 10 mEq 00 daily Take extended only with release lasix. tablet furosemide Yes CKD 40mg Q.5D Take 1 [facility] (LASIX) 40 1-23 (chronic tablet by [facility] mg tablet 00:00: kidney mouth 2 00 disease), times stage 3 daily. (moderate) potassium 2017-0 Yes Essential 10meq QD Take 1 [facility] chloride 1-23 hypertensio tablet by [employer] (KLOR-CON 00:00: n, benign mouth M10) 10 [...] 1 [facility] chloride 1-23 hypertensio tablet by [employer] (KLOR-CON 00:00: n, benign mouth M10) 10 [...] 1 Warner chloride 1-23 hypertensio tablet by [facility] (KLOR-CON 00:00: n, benign mouth M10) 10 mEq 00 daily Take extended only with release lasix. tablet cloNIDine 2015-03 Yes Essential .1mg Take 1 H arris HCl 0-28 hypertensio tablet by [facility] (CATAPRES) 00:00: n, benign mouth 3 0.1 mg 00 times tablet daily. cloNIDine 2015-03 Yes Essential .1mg Take 1 H arris HCl 0-28 hypertensio tablet by [facility] (CATAPRES) 00:00: n, benign mouth 3 0.1 mg 00 times tablet daily. cloNIDine 2015-03 Yes Essential .1mg Take 1 H arris HCl 0-28 hypertensio tablet by [facility] (CATAPRES) 00:00: n, benign mouth 3 0.1 mg 00 times tablet daily. cloNIDine 2015-03 Yes Essential .1mg Take 1 H arris HCl 0-28 hypertensio tablet by [facility] (CATAPRES) 00:00: n, benign mouth 3 0.1 mg 00 times tablet daily. cloNIDine 2015-03 Yes Essential .1mg Take 1 H arris HCl 0-28 hypertensio tablet by [facility] (CATAPRES) 00:00: n, benign mouth 3 0.1 mg 00 times tablet daily. cloNIDine 2015-03 Yes Essential .1mg Take 1 H arris HCl 0-28 hypertensio tablet by [facility] (CATAPRES) 00:00: n, benign mouth 3 0.1 mg 00 times tablet daily. cloNIDine 2015-03 Yes Essential .1mg Take 1 H arris HCl 0-28 hypertensio tablet by [facility] (CATAPRES) 00:00: n, benign mouth 3 0.1 mg 00 times tablet daily. cloNIDine 2015-03 Yes Essential .1mg Take 1 H arris HCl 0-28 hypertensio tablet by [facility] (CATAPRES) 00:00: n, benign mouth 3 0.1 mg 00 times tablet daily. cloNIDine 2015-03 Yes Essential .1mg Take 1 H arris HCl 0-28 hypertensio tablet by [facility] (CATAPRES) 00:00: n, benign mouth 3 0.1 mg 00 times tablet daily. cloNIDine 2015-03 Yes Essential .1mg Take 1 H arris HCl 0-28 hypertensio tablet by [facility] (CATAPRES) 00:00: n, benign mouth 3 0.1 mg 00 times tablet daily. cloNIDine 2015-03 Yes Essential .1mg Take 1 H arris HCl 0-28 hypertensio tablet by [facility] (CATAPRES) 00:00: n, benign mouth 3 0.1 mg 00 times tablet daily. cloNIDine 2015-03 Yes Essential .1mg Take 1 H arris HCl 0-28 hypertensio tablet by [facility] (CATAPRES) 00:00: n, benign mouth 3 0.1 mg 00 times tablet daily. cloNIDine 2015-03 Yes Essential .1mg Take 1 H arris HCl 0-28 hypertensio tablet by [facility] (CATAPRES) 00:00: n, benign mouth 3 0.1 mg 00 times tablet daily. cloNIDine 2015-03 Yes Essential .1mg Take 1 H arris HCl 0-28 hypertensio tablet by [facility] (CATAPRES) 00:00: n, benign mouth 3 0.1 mg 00 times tablet daily. cloNIDine 2015-03 Yes Essential .1mg Take 1 H arris HCl 0-28 hypertensio tablet by [facility] (CATAPRES) 00:00: n, benign mouth 3 0.1 mg 00 times tablet daily. cloNIDine 2015-03 Yes Essential .1mg Take 1 H arris HCl 0-28 hypertensio tablet by [facility] (CATAPRES) 00:00: n, benign mouth 3 0.1 mg 00 times tablet daily. cloNIDine 2016-0 Yes Essential .3mg Take 1 H arris HCl 9-19 hypertensio tablet by [facility] (CATAPRES) 00:00: n, benign mouth 3 0.3 mg 00 times tablet daily Increased dose. cloNIDine 2016-0 Yes Essential .3mg Take 1 H arris HCl 9-19 hypertensio tablet by [facility] (CATAPRES) 00:00: n, benign mouth 3 0.3 mg 00 times tablet daily Increased dose. cloNIDine 2016-0 Yes Essential .3mg Take 1 H arris HCl 9-19 hypertensio tablet by [facility] (CATAPRES) 00:00: n, benign mouth 3 0.3 mg 00 times tablet daily Increased dose. cloNIDine 2016-0 Yes Essential .3mg Take 1 H arris HCl 9-19 hypertensio tablet by [facility] (CATAPRES) 00:00: n, benign mouth 3 0.3 mg 00 times tablet daily Increased dose. cloNIDine 2016-0 Yes Essential .3mg Take 1 H arris HCl 9-19 hypertensio tablet by [facility] (CATAPRES) 00:00: n, benign mouth 3 0.3 mg 00 times tablet daily Increased dose. cloNIDine 2016-0 Yes Essential .3mg Take 1 H arris HCl 9-19 hypertensio tablet by [facility] (CATAPRES) 00:00: n, benign mouth 3 0.3 mg 00 times tablet daily Increased dose. cloNIDine 2016-0 Yes Essential .3mg Take 1 H arris HCl 9-19 hypertensio tablet by [facility] (CATAPRES) 00:00: n, benign mouth 3 0.3 mg 00 times tablet daily Increased dose. cloNIDine 2016-0 Yes Essential .3mg Take 1 H arris HCl 9-19 hypertensio tablet by [facility] (CATAPRES) 00:00: n, benign mouth 3 0.3 mg 00 times tablet daily Increased dose. cloNIDine 2016-0 Yes Essential .3mg Take 1 H arris HCl 9-19 hypertensio tablet by [facility] (CATAPRES) 00:00: n, benign mouth 3 0.3 mg 00 times tablet daily Increased dose. cloNIDine 2016-0 Yes Essential .3mg Take 1 H arris HCl 9-19 hypertensio tablet by [facility] (CATAPRES) 00:00: n, benign mouth 3 0.3 mg 00 times tablet daily Increased dose. cloNIDine 2016-0 Yes Essential .3mg Take 1 H arris HCl 9-19 hypertensio tablet by [facility] (CATAPRES) 00:00: n, benign mouth 3 0.3 mg 00 times tablet daily Increased dose. cloNIDine 2016-0 Yes Essential .3mg Take 1 H arris HCl 9-19 hypertensio tablet by [facility] (CATAPRES) 00:00: n, benign mouth 3 0.3 mg 00 times tablet daily Increased dose. cloNIDine 2016-0 Yes Essential .3mg Take 1 H arris HCl 9-19 hypertensio tablet by [facility] (CATAPRES) 00:00: n, benign mouth 3 0.3 mg 00 times tablet daily Increased dose. cloNIDine 2016-0 Yes Essential .3mg Take 1 H arris HCl 9-19 hypertensio tablet by [facility] (CATAPRES) 00:00: n, benign mouth 3 0.3 mg 00 times tablet daily Increased dose. cloNIDine 2016-0 Yes Essential .3mg Take 1 H arris HCl 9-19 hypertensio tablet by [facility] (CATAPRES) 00:00: n, benign mouth 3 0.3 mg 00 times tablet daily Increased dose. cloNIDine 2016-0 Yes Essential .3mg Take 1 H arris HCl 9-19 hypertensio tablet by [facility] (CATAPRES) 00:00: n, benign mouth 3 0.3 mg 00 times tablet daily Increased dose. ergocalcife 2015- Yes Vitamin D 13655C Take 1 [facility] rol 3-31 deficiency capsule by [facility] (VITAMIN 00:00: mouth D2) 50,000 00 weekly. unit capsule NIFEdipine 2015-0 Yes Essential 90mg QD Take 1 [facility] (PROCARDIA 3-31 hypertensio tablet by [employer]) 90 mg 00:00: n, benign mouth extended 00 daily release Discontinu tablet e Amlodipine . ergocalcife 2015-0 Yes Vitamin D 97819C Take 1 [facility] rol 3-31 deficiency capsule by [facility] (VITAMIN 00:00: mouth D2) 50,000 00 weekly. unit capsule NIFEdipine 2015-0 Yes Essential 90mg QD Take 1 [facility] (PROCARDIA 3-31 hypertensio tablet by [employer]) 90 mg 00:00: n, benign mouth extended 00 daily release Discontinu tablet e Amlodipine . ergocalcife 2015-0 Yes Vitamin D 53918L Take 1 [facility] rol 3-31 deficiency capsule by [facility] (VITAMIN 00:00: mouth D2) 50,000 00 weekly. unit capsule NIFEdipine 2015-0 Yes Essential 90mg QD Take 1 [facility] (PROCARDIA 3-31 hypertensio tablet by [facility]) 90 mg 00:00: n, benign mouth extended 00 daily release Discontinu tablet e Amlodipine . ergocalcife 2015-0 Yes Vitamin D 40328B Take 1 [facility] rol 3-31 deficiency capsule by [facility] (VITAMIN 00:00: mouth D2) 50,000 00 weekly. unit capsule NIFEdipine 2015-0 Yes Essential 90mg QD Take 1 [facility] (PROCARDIA 3-31 hypertensio tablet by [facility]) 90 mg 00:00: n, benign mouth extended 00 daily release Discontinu tablet e Amlodipine . ergocalcife 2015-0 Yes Vitamin D [id number] Take 1 [facility] rol 3-31 deficiency capsule by [facility] (VITAMIN 00:00: mouth D2) 50,000 00 weekly. unit capsule NIFEdipine 0 Yes Essential 90mg QD Take 1 [facility] (PROCARDIA 3-31 hypertensio tablet by [facility]) 90 mg 00:00: n, benign mouth extended 00 daily release Discontinu tablet e Amlodipine . ergocalcife 2015-0 Yes Vitamin D 76368S Take 1 [facility] rol 3-31 deficiency capsule by [facility] (VITAMIN 00:00: mouth D2) 50,000 00 weekly. unit capsule NIFEdipine 2015-0 Yes Essential 90mg QD Take 1 [facility] (PROCARDIA 3-31 hypertensio tablet by [facility]) 90 mg 00:00: n, benign mouth extended 00 daily release Discontinu tablet e Amlodipine . ergocalcife 2015-0 Yes Vitamin D 48882S Take 1 [facility] rol 3-31 deficiency capsule by [facility] (VITAMIN 00:00: mouth D2) 50,000 00 weekly. unit capsule NIFEdipine 2015-0 Yes Essential 90mg QD Take 1 [facility] (PROCARDIA 3-31 hypertensio tablet by [facility]) 90 mg 00:00: n, benign mouth extended 00 daily release Discontinu tablet e Amlodipine . ergocalcife 2015-0 Yes Vitamin D 23031P Take 1 [facility] rol 3-31 deficiency capsule by [facility] (VITAMIN 00:00: mouth D2) 50,000 00 weekly. unit capsule NIFEdipine 2015-0 Yes Essential 90mg QD Take 1 [facility] (PROCARDIA 3-31 hypertensio tablet by [facility]) 90 mg 00:00: n, benign mouth extended 00 daily release Discontinu tablet e Amlodipine . ergocalcife 2015-0 Yes Vitamin D [id number] Take 1 [facility] rol 3-31 deficiency capsule by [facility] (VITAMIN 00:00: mouth D2) 50,000 00 weekly. unit capsule NIFEdipine 2015-0 Yes Essential 90mg QD Take 1 [facility] (PROCARDIA 3-31 hypertensio tablet by [facility]) 90 mg 00:00: n, benign mouth extended 00 daily release Discontinu tablet e Amlodipine . ergocalcife 2015-0 Yes Vitamin D [id number] Take 1 [facility] rol 3-31 deficiency capsule by [facility] (VITAMIN 00:00: mouth D2) 50,000 00 weekly. unit capsule NIFEdipine 2015-0 Yes Essential 90mg QD Take 1 [facility] (PROCARDIA 3-31 hypertensio tablet by [facility]) 90 mg 00:00: n, benign mouth extended 00 daily release Discontinu tablet e Amlodipine . ergocalcife Yes Vitamin D 41617G Take 1 [facility] rol 3-31 deficiency capsule by [facility] (VITAMIN 00:00: mouth D2) 50,000 00 weekly. unit capsule NIFEdipine 2015-0 Yes Essential 90mg QD Take 1 [facility] (PROCARDIA 3-31 hypertensio tablet by [facility]) 90 mg 00:00: n, benign mouth extended 00 daily release Discontinu tablet e Amlodipine . ergocalcife 2015- Yes Vitamin D [id number] Take 1 [facility] rol 3-31 deficiency capsule by [facility] (VITAMIN 00:00: mouth D2) 50,000 00 weekly. unit capsule NIFEdipine 2015-0 Yes Essential 90mg QD Take 1 [facility] (PROCARDIA 3-31 hypertensio tablet by [facility]) 90 mg 00:00: n, benign mouth extended 00 daily release Discontinu tablet e Amlodipine . ergocalcife 2015-0 Yes Vitamin D [id number] Take 1 [facility] rol 3-31 deficiency capsule by [facility] (VITAMIN 00:00: mouth D2) 50,000 00 weekly. unit capsule NIFEdipine 2015-0 Yes Essential 90mg QD Take 1 [facility] (PROCARDIA 3-31 hypertensio tablet by [facility]) 90 mg 00:00: n, benign mouth extended 00 daily release Discontinu tablet e Amlodipine . ergocalcife Yes Vitamin D 17961R Take 1 [facility] rol 3-31 deficiency capsule by [facility] (VITAMIN 00:00: mouth D2) 50,000 00 weekly. unit capsule NIFEdipine Yes Essential 90mg QD Take 1 [facility] (PROCARDIA 3-31 hypertensio tablet by [facility]) 90 mg 00:00: n, benign mouth extended 00 daily release Discontinu tablet e Amlodipine . ergocalcife Yes Vitamin D [id number] Take 1 [facility] rol 3-31 deficiency capsule by [facility] (VITAMIN 00:00: mouth D2) 50,000 00 weekly. unit capsule NIFEdipine Yes Essential 90mg QD Take 1 [facility] (PROCARDIA 3-31 hypertensio tablet by [facility]) 90 mg 00:00: n, benign mouth extended 00 daily release Discontinu tablet e Amlodipine . ergocalcife Yes Vitamin D [id number] Take 1 [facility] rol 3-31 deficiency capsule by [facility] (VITAMIN 00:00: mouth D2) 50,000 00 [...] daily. Fluoxetine Fluoxetine Yes Eric [address] HCl HCl [facility] Ferrous Ferrous Yes Eric 1 tablet Co mmon Sulfate Sulfate [facility] Vitamin C Vitamin C Yes Eric as Co mmon Rodriguez directed [facility] Pravastatin Pravastatin Yes Eric 1 tablet Common Sodium Sodium Rodriguez [facility] Sevelamer Sevelamer Yes Eric 1 packet Common Carbonate Carbonate Rodriguez mixed with [facility] 30 ml of - [facility] water with [facility] Vitamin B Vitamin B Yes Eric as Co mmon Complex Complex Rodriguez directed Spiri t [facility] Doxazosin Doxazosin Yes Eric 1 tablet Common Mesylate Mesylate Rodriguez [facility] Eliquis Eliquis Yes Eric TAKE 1 Comm on Rodriguez TABLET BY [facility] MOUTH - [facility]I TWICE St DAILY FOR [facility] 90 DAYS [facility] NIFEdipine NIFEdipine Yes Eric TAKE 1 Common ER ER Rodriguez TABLET BY [facility] MOUTH - [facility] EVERY 12 [facility] HOURS [facility] Metformin Metformin Yes Eric 1 tablet Common HCl HCl Rodriguez with a [facility] meal [facility] Vitamin D-3 Vitamin D-3 Yes Eric as Common Rodriguez directed [facility] Melatonin Melatonin Yes Eric 1 capsule Common Rodriguez at bedtime [facility] as needed - [facility] with food [facility] Metformin Metformin Yes Eric 1 tablet Common HCl HCl Rodriguez with a [facility] meal [facility] Atenolol Atenolol Yes Eric 1 tablet Common Rodriguez [facility] Sevelamer Sevelamer No TID Sevelamer [...] 5000 UNIT 5000 UNIT D-3 5000 UNIT pravastatin pravastatin No 1 Q1D pravastati [facility] 20 mg 20 mg n 20 mg Medical tablet Take tablet Take tablet 1 tablet 1 tablet Take 1 every day every day tablet by oral by oral every day route for route for by oral 30 days. 30 days. route for 30 days. Atenolol 50 Atenolol 50 No 1{table Atenolol MG MG t} 50 MG sevelamer sevelamer No sevelamer [facility] carbonate carbonate carbonate Medical 2.4 gram 2.4 gram 2.4 gram oral powder oral powder oral packet MIX packet MIX powder 1 PACKET 1 PACKET packet MIX AND DRINK AND DRINK 1 PACKET THREE TIMES THREE TIMES AND DRINK DAILY DAILY THREE TIMES DAILY Melatonin 5 Melatonin 5 No 1{capsu QD Melatonin MG MG le_at_b 5 MG edtime_ as_need ed_with _food} topiramate topiramate No 1 BID topiramate [facility] 50 mg 50 mg 50 mg Medical tablet Take tablet Take tablet 1 tablet 1 tablet Take 1 twice a day twice a day tablet by oral by oral twice a route for route for day by 30 days. 30 days. oral route for 30 days. FLUoxetine FLUoxetine No 1{table QD FLUoxetine HCl 60 MG HCl 60 MG t} HCl 60 MG valproic valproic No valproic Zeynpe via acid (as acid (as acid (as [...] HEMODIALYSI AFTER S ON MWF S ON [facility] HEMODIALYS IS ON [facility] levetiracet levetiracet No 1000mg Q1D levetirace [...] MWF S ON MWF HEMODIALYS IS ON [facility] levetiracet levetiracet No 1000mg Q1D levetirace [...] ONCE TRANSDERMA DAILY DAILY LLY ONCE DAILY NIFEdipine NIFEdipine No NIFEdipine ER 90 MG ER 90 MG ER 90 MG pravastatin pravastatin No 1 Q1D pravastati [facility] 20 mg 20 mg n 20 mg Medical tablet Take tablet Take tablet 1 tablet 1 tablet Take 1 every day every day tablet by oral by oral every day route for route for by oral 30 days. 30 days. route for 30 days. Eliquis 5 Eliquis 5 No Eliquis 5 MG MG MG Doxazosin Doxazosin No 1{table QD Doxazosin Mesylate 8 Mesylate 8 t} Mesylate 8 MG MG MG sevelamer sevelamer No sevelamer [facility] carbonate carbonate [...] A DAY HEMODIALYSI HEMODIALYSI AFTER S ON [facility] S ON [facility] HEMODIALYS IS ON [facility] levetiracet levetiracet No 1000mg Q1D levetirace [...] A DAY HEMODIALYSI HEMODIALYSI AFTER S ON [facility] S ON [facility] HEMODIALYS IS ON [facility] levetiracet levetiracet No 1000mg Q1D levetirace [...] A DAY HEMODIALYSI HEMODIALYSI AFTER S ON [facility] S ON [facility] HEMODIALYS IS ON [facility] levetiracet levetiracet No 1000mg Q1D levetirace [...] ONCE TRANSDERMA DAILY DAILY LLY ONCE DAILY Immunizations Ordered Immunization Filled Immunization Date Status Commen ts Source Name Name Influenza, seasonal, 2022-01-30 [facility]:00 Influenza, seasonal, 2022-01-30 [facility]:00 influenza, seasonal, influenza, seasonal, 2016-01-21 [...] [facility] 00:00:00 Influenza Pre-Epic 2016-01-21 Completed [facility] 00:00:00 [facility] Influenza Three-TIV 2016-01-21 Com[facility] Influ[facility] Vaccine 2016-01-21 Completed [facility] 00:00:00 influenza, seasonal, influenza, seasonal, 2015-01-14 Completed [...] PCV 13 00:00:00 Influenza Vaccine 2015-01-14 Completed [facility] 00:00:00 Pneumococcal 2015-[facility]-14 [facility]:00 mL injection Influenza Vaccine 2015-01-14 Completed [facility] 00:00:00 Pneumococcal 2015-01-14 [facility] 00:00:00 mL injection Influenza Vaccine 2015-01-14 Completed [facility] 00:00:00 Pneumococcal 2015-01-14 [facility] 0[facility]5 00:00:00 mL injection Influenza Vaccine 2015-01-14 Completed [facility] 00:00:00 Pneumococcal 2015-01-14 [facility] 0[facility]5 00:00:00 mL injection Influenza Vaccine 2015-01-14 Completed [facility] 00:00:00 Pneumococcal 2015-01-14 [facility]5 00:00:00 mL injection Influenza Vaccine 2015-01-14 Completed [facility] 00:00:00 Pneumococcal 2015-01-14 [facility] 0[facility]5 00:00:00 mL injection Influenza Vaccine 2015-01-14 Completed [facility] 00:00:00 Pneumococcal 2015-01-14 [facility] 0[facility]5 00:00:00 mL injection Influenza Vaccine 2015-01-14 Completed [facility] 00:00:00 Pneumococcal 2015-01-14 [facility] 13-[facility] 0.5 00:00:00 mL injection Influenza Vaccine 2015-01-14 Completed [facility] 00:00:00 Pneumococcal 2015-01-14 Com[facility] 13-valent conj 0.5 00:00:00 mL injection Influenza Vaccine 2015-01-14 Completed [facility] 00:00:00 Pneumococcal 2015-01-14 [facility]:00 mL injection Influenza Vaccine 2015-01-14 Completed [facility] 00:00:00 Pneumococcal 2015-01-14 [facility]:00:00 mL injection Influenza Vaccine 2015-01-14 Completed [facility] 00:00:00 Pneumococcal 2015-01-14 [facility]:00:00 mL injection Influenza Vaccine 2015-01-14 Completed [facility] 00:00:00 Pneumococcal 2015-01-14 [facility] conj 0.5 00:00:00 mL injection Influenza Vaccine 2015-01-14 Completed [facility] 00:00:00 Pneumococcal 2015-01-14 [facility] 0[facility]5 00:00:00 mL injection Influenza Vaccine 2015-01-14 Completed [facility] 00:00:00 Pneumococcal 2015-01-14 [facility] 00:00:00 mL injection Influenza Pre-Epic 2015-01-[address] [facility] 00:00:00 [facility] Pneumococcal 2015-01-[address] [facility] Conjugate (Prevnar) 00:00:00 [facility] 13-Valent Influenza Three-TIV 2015-01-14 [facility] PF 5+ YR 00:00:00 [facility] Pneumococcal 2015-01-[address] [facility] Conjugate (Prevnar) 00:00:00 [facility] 13-Valent Influenza Pre-Epic 2015-01-[address] [facility] 00:00:00 [facility] Pneumococcal 2015-01-[address] [facility] Conjugate (Prevnar) 00:00:00 [facility] 13-Valent Influenza Three-TIV 2015-01-14 Com[facility] PF [facility]+ YR 00:00:00 [facility] Pneumococcal 2015-01-[address] [facility] Conjugate (Prevnar) 00:00:00 [facility] 13-Valent Influenza Pre-Epic 2015-01-[address] [facility] 00:00:00 [facility] Pneumococcal 2015-01-[address] [facility] Conjugate (Prevnar) 00:00:00 [facility] 13-Valent Influenza Three-TIV 2015-01-14 Com[facility] PF [facility]+ YR 00:00:00 [facility] Pneumococcal 2015-01-[address] [facility] Conjugate (Prevnar) 00:00:00 [facility] 13-Valent Influenza Pre-Epic 2015-01-[address] [facility] 00:00:00 [facility] Pneumococcal 2015-01-[address] [facility] Conjugate (Prevnar) 00:00:00 [facility] 13-Valent Influenza Three-TIV 2015-01-14 Com[facility] PF [facility]+ YR 00:00:00 [facility] Pneumococcal 2015-01-[address] [facility] Conjugate (Prevnar) 00:00:00 [facility] 13-Valent Influenza Pre-Epic 2015-01-[address] [facility] 00:00:00 [facility] Pneumococcal 2015-01-[address] [facility] Conjugate (Prevnar) 00:00:00 [facility] 13-Valent Influenza Three-TIV 2015-01-14 Com[facility] PF [facility]+ YR 00:00:00 [facility] Pneumococcal 2015-01-[address] [facility] Conjugate (Prevnar) 00:00:00 [facility] 13-Valent Influenza Pre-Epic 2015-01-[address] [facility] 00:00:00 [facility] Pneumococcal 2015-01-[address] [facility] Conjugate (Prevnar) 00:00:00 [facility] 13-Valent Influenza Three-TIV 2015-01-14 Com[facility] PF [facility]+ YR 00:00:00 [facility] Pneumococcal 2015-01-[address] [facility] Conjugate (Prevnar) 00:00:00 [facility] 13-Valent Influenza Pre-Epic 2015-01-[address] [facility] 00:00:00 [facility] Pneumococcal 2015-01-[address] [facility] Conjugate (Prevnar) 00:00:00 [facility] 13-Valent Influenza Three-TIV 2015-01-14 Com[facility] PF [facility]+ YR 00:00:00 [facility] Pneumococcal 2015-01-[address] [facility] Conjugate (Prevnar) 00:00:00 [facility] 13-Valent Influenza Vaccine 2015-01-14 Completed [facility] 00:00:00 Pneumococcal 2015-01-14 Completed [facility] 13-valent conj 0.5 00:00:00 mL injection influenza, seasonal, influenza, seasonal, 2014-02-09 Completed [facility] [...] free preservative free Influenza Vaccine 2014-02-09 Completed [facility] 00:00:00 Influenza Vaccine 2014-02-09 Completed [facility] 00:00:00 Influenza Vaccine 2014-02-09 [facility] [facility]00 Influenza Vaccine 2014-02-09 Completed [facility] 00:00:00 Influenza Vaccine 2014-02-09 Completed [facility] 00:00:00 Influenza Vaccine 2014-02-09 Completed [facility] 00:00:00 Influenza Vaccine 2014-02-09 Completed [facility] 00:00:00 Influenza Vaccine 2014-02-09 Completed [facility] 00:00:00 Influenza Vaccine 2014-02-09 Completed [facility] 00:00:00 Influenza Vaccine 2014-02-09 Completed [facility] 00:00:00 Influenza Vaccine 2014-02-09 Completed [facility] 00:00:00 Influenza Vaccine 2014-02-09 Completed [facility] 00:00:00 Influenza Vaccine 2014-02-09 Completed [facility] 00:00:00 Influenza Vaccine 2014-02-09 Completed [facility] 00:00:00 Influenza Vaccine 2014-02-09 Completed [facility] 00:00:00 Influenza Pre-Epic 2014-02-[address] [facility] 00:00:00 [facility] Influenza Three-TIV 2014-02-09 Com[facility] PF 5+ YR 00:00:00 [facility] Influenza Pre-Epic 2014-02-[address] [facility] 00[facility]00:00 [facility] Influenza Three-TIV 2014-02-09 Completed [facility] 5+ YR 00:00:00 [facility] Influenza Pre-Epic 2014-02-[address] [facility] 00[facility]00:00 [facility] Influenza Three-TIV 2014-02-09 Completed [facility]+ YR 00:00:00 [facility] Influenza Pre-Epic 2014-02-[address] [facility] 00[facility]00:00 [facility] Influenza Three-TIV 2014-02-09 Completed [facility]+ [facility]R 00:00:00 [facility] Influenza Pre-Epic 2014-02-[address] [facility] 00:00:00 [facility] Influenza Three-TIV 2014-02-09 Completed [facility]+ YR 00:00:00 [facility] Influenza Pre-Epic 2014-02-[address] [facility] 00:00:00 [facility] Influenza Three-TIV 2014-02-09 Completed [facility]R 00:00:00 [facility] Influenza Pre-Epic 2014-02-[address] [facility] 00:00:00 [facility] Influenza Three-TIV 2014-02-09 Completed [facility] 00:00:00 [facility] Influenza Vaccine 2014-02-09 Completed [facility] 00:00:00 influenza, seasonal, influenza, seasonal, 2013-01-20 [facility] Pre-Epic 2013-01-[address] [facility] 00:00:00 [facility] Influenza Three-TIV 2013-01-20 Com[facility] 00:00:00 [facility] Influenza Vaccine 2013-01-20 Completed [facility] 00:00:00 influenza, seasonal, influenza, seasonal, 2010-12-16 Completed [facility] free preservative free Influenza Vaccine 2010-12-16 Completed [facility] 00:00:00 Influenza Vaccine 2010-12-16 Completed [facility] 00:00:00 Influenza Vaccine 2010-12-16 Completed [facility] 00:00:00 Influenza Vaccine 2010-12-16 Completed [facility] 00:00:00 Influenza Vaccine 2010-12-16 Completed [facility] 00:00:00 Influenza Vaccine 2010-12-16 Completed [facility] 00:00:00 Influenza Vaccine 2010-12-16 Completed [facility] 00:00:00 Influenza Vaccine 2010-12-16 Completed [facility] 00:00:00 Influenza Vaccine 2010-12-16 Completed [facility] 00:00:00 Influenza Vaccine 2010-12-16 Completed [facility] 00:00:00 Influenza Vaccine 2010-12-16 Completed [facility] 00:00:00 Influenza Vaccine 2010-12-16 Completed [facility] 00:00:00 Influenza Vaccine 2010-12-16 Completed [facility] 00:00:00 Influenza Vaccine 2010-12-16 Completed [facility] 00:00:00 Influenza Vaccine 2010-12-16 Completed [facility] 00:00:00 Influenza Pre-Epic 2010-12-[address] [facility] 00:00:00 [facility] Influenza Three-TIV 2010-12-16 [facility] Influenza Pre-Epic 2010-12-[address] [facility] Influenza Three-TIV 2010-12-16 Com[facility] 00:00:00 [facility] Influenza Pre-Epic 2010-12-[address] [facility] 00:00:00 [facility] Influenza Three-TIV 2010-12-16 Completed [facility] 00:00:00 [facility] Influenza Pre-Epic 2010-12-[address] [facility] 00:00:00 [facility] Influenza Three-TIV 2010-12-16 [facility] Influenza Pre-Epic 2010-12-[address] [facility] 00:00:00 [facility] Influenza Three-TIV 2010-12-16 Com[facility] 00:00:00 [facility] Influenza Pre-Epic 2010-12-[address] [facility] 00[facility]00:00 [facility] Influenza Three-TIV 2010-12-16 Completed [facility] 00:[facility]00 [facility] Influenza Pre-Epic 2010-12-[address] [facility] 00:00:00 [facility] Influenza Three-TIV 2010-12-16 Completed [facility]:00 [facility] Influenza Vaccine 2010-12-16 Completed [facility] 00:00:00 influenza, seasonal, influenza, seasonal, 2010-02-28 Completed [facility] free preservative free Influenza Vaccine 2010-02-28 Completed [facility] 00:00:00 Influenza Vaccine 2010-02-28 Completed [facility] 00:00:00 Influenza Vaccine 2010-02-28 Completed [facility] 00:00:00 Influenza [facility] 2010-02-[address] [facility] 00:00:00 [facility] Influenza Three-TIV 2010-02-28 Completed [facility]+ YR 00:00:00 [facility] Influenza Pre-Epic 2010-02-[address] [facility] 00:00:00 [facility] Influenza Three-TIV 2010-02-28 Completed [facility]+ [facility]R 00:00:00 [facility] Influenza Pre-Epic 2010-02-[address] [facility] 00:00:00 [facility] Influenza Three-TIV 2010-02-28 Completed [facility]+ [facility] 00:00:00 [facility] Influenza Pre-Epic 2010-02-[address] [facility] 00:00:00 [facility] Influenza Three-TIV 2010-02-28 Completed [facility]+ [facility]R 00:00:00 [facility] Influenza Pre-Epic 2010-02-[address] [facility] 00:00:00 [facility] Influenza Three-TIV 2010-02-28 Completed [facility]+ [facility]R 00:00:00 [facility] Influenza Pre-Epic 2010-02-[address] [facility] 00:00:00 [facility] Influenza Three-TIV 2010-02-28 Completed [facility] 5+ YR 00:00:00 [facility] Influenza Pre-Epic 2010-02-[address] [facility] 00:00:00 [facility] Influenza Three-TIV 2010-02-28 Completed [facility]+ YR 00:00:00 [facility] Influenza Vaccine 2010-02-28 Completed [facility] 00:00:00 Vital Signs Vital Name Observation Time Observation Value Comments Source WEIGHT 2020-08-10 17:12:00 80.1 kg WEIGHT 2020-08-10 14:11:00 82.5 kg HEIGHT 2020-08-06 23:13:00 154.9 cm WEIGHT 2020-08-06 23:13:00 79.379 kg WEIGHT 2022-10-06 18:30:00 77.5 kg WEIGHT 2022-10-06 14:20:00 78.5 kg WEIGHT 2022-10-04 21:36:00 78.5 kg WEIGHT 2022-10-02 15:15:00 79.5 kg HEIGHT 2022-09-29 21:00:00 154.9 cm WEIGHT 2022-10-06 18:30:00 77.5 kg WEIGHT 2022-10-06 14:20:00 78.5 kg WEIGHT 2022-10-04 21:36:00 78.5 kg WEIGHT 2022-10-02 15:15:00 79.5 kg HEIGHT 2022-09-29 21:00:00 154.9 cm Body temperature 2022-01-31 16:37:00 [facility].39 [facility] Respiratory rate 2022-01-31 16:37:00 18 [facility] Body weight 2022-01-31 16:37:00 [facility] BMI 2022-01-31 16:37:00 31.18 [facility]m2 [facility] Oxygen saturation in 2022-01-31 16:37:00 98 /min [facility] Arterial blood by Pulse oximetry Systolic blood 2022-01-31 16:37:00 132 mm[Hg] [facility] pressure Diastolic blood 2022-01-31 16:37:00 84 mm[Hg] [facility] Heart rate 2022-01-31 16:37:00 75 /[facility] BP Diastolic 2021-11-01 00:00:00 86 mm[Hg] [facility] Height 2021-11-01 00:00:00 61 [in_i] [facility] BMI (Body Mass 2021-11-01 00:00:00 29.5 kg/m2 [facility] Index) BP Systolic 2021-11-01 00:00:00 137 mm[Hg] [facility] Body Weight 2021-11-01 00:00:00 2496 [oz_av] [facility] BP Diastolic 2021-10-25 00:00:00 78 mm[Hg] [facility] Height 2021-10-25 00:00:00 61 [in_i] [facility] BMI (Body Mass 2021-10-25 00:00:00 29.5 kg/m2 [facility] Index) BP Systolic 2021-10-25 00:00:00 136 mm[Hg] [facility] Body Weight 2021-10-25 00:00:00 2496 [oz_av] [facility] BP Diastolic 2021-10-20 00:00:00 58 mm[Hg] [facility] Height 2021-10-20 00:00:00 61 [in_i] [facility] BMI (Body Mass 2021-10-20 00:00:00 29.5 kg/m2 [facility] BP Systolic 2021-10-20 00:00:00 118 mm[Hg] [facility] Body Weight 2021-10-20 00:00:00 2496 [oz_av] [facility] Height 2021-10-18 00:00:00 61 [in_i] [facility] BMI (Body Mass 2021-10-18 00:00:00 29.5 kg/m2 [facility] BP Systolic 2021-10-18 00:00:00 125 mm[Hg] [facility] Body Weight 2021-10-18 00:00:00 2496 [oz_av] [facility] BP Diastolic 2021-10-18 00:00:00 70 mm[Hg] [facility] BP Diastolic 2021-10-14 00:00:00 66 mm[Hg] [facility] Height 2021-10-14 00:00:00 61 [in_i] [facility] BMI (Body Mass 2021-10-14 00:00:00 29.5 kg/m2 [facility] BP Systolic 2021-10-14 00:00:00 119 mm[Hg] [facility] Body Weight 2021-10-14 00:00:00 2496 [oz_av] [facility] BP Diastolic 2021-10-11 00:00:00 76 mm[Hg] [facility] Height 2021-10-11 00:00:00 61 [in_i] [facility] BMI (Body Mass 2021-10-11 00:00:00 29.5 kg/m2 [facility] BP Systolic 2021-10-11 00:00:00 132 mm[Hg] [facility] Body Weight 2021-10-11 00:00:00 2496 [oz_av] [facility] BP Diastolic 2021-10-04 00:00:00 72 mm[Hg] [facility] Height 2021-10-04 00:00:00 61 [in_i] [facility] BMI (Body Mass 2021-10-04 00:00:00 33.5 kg/m2 [facility]) BP Systolic 2021-10-04 00:00:00 136 [...] Healt h BMI 2021-08-02 15:46:00 31.74 kg/m2 [facility] WEIGHT 2020-08-10 17:12:00 80.1 kg WEIGHT 2020-08-10 14:11:00 82.5 kg HEIGHT 2020-08-06 23:13:00 154.9 cm WEIGHT 2020-08-06 23:13:00 79.379 kg HEIGHT 2019-11-04 00:00:00 156 cm WEIGHT 2019-11-04 00:00:00 85.004 kg Systolic (mm Hg) 2022-07-15 20:30:00 [facility] Diastolic (mm Hg) 2022-07-15 20:30:00 [facility] Heart Rate 2022-07-15 20:30:00 [facility] Temperature Oral (F) 2022-07-15 20:30:00 98 F [facility] Height 2022-07-15 16:42:00 5 [ft_i] [facility] BMI Calculated 2022-07-15 16:42:00 [facility] Weight 2022-07-15 16:42:00 [facility] Systolic blood 2022-06-15 22:09:00 113 mm[Hg] [facility] pressure Diastolic blood 2022-06-15 22:09:00 58 mm[Hg] [facility] pressure Heart rate 2022-06-15 22:09:00 63 /min [facility] Body temperature 2022-06-15 22:09:[address] [facility] Respiratory rate 2022-06-15 22:09:00 12 /min [facility] Oxygen saturation in 2022-06-15 22:09:00 99 /min [facility] Arterial blood by Pulse oximetry Body height 2022-06-15 04:23:24 167.6 cm [facility] Body weight 2022-06-15 04:23:24 60.9 kg [facility] BMI 2022-06-15 04:23:24 21.67 kg/m2 [facility] Systolic (mm Hg) 2022-06-07 01:07:00 [facility] Diastolic (mm Hg) 2022-06-07 01:07:00 [facility] Height 2022-06-06 20:41:00 5 [ft_i] [facility] BMI Calculated 2022-06-06 20:41:00 [facility] Weight 2022-06-06 20:41:00 [facility] Heart Rate 2022-06-06 20:41:00 [facility] Temperature Oral (F) 2022-06-06 20:41:00 97.8 F [facility] Systolic (mm Hg) 2022-03-29 05:36:00 [facility] Diastolic (mm Hg) 2022-03-29 05:36:00 [facility] Heart Rate 2022-03-29 05:36:00 [facility] Height 2022-03-28 23:57:00 5 [ft_i] [facility] BMI Calculated 2022-03-28 23:57:00 [facility] Weight 2022-03-28 23:57:00 [facility] Temperature Oral (F) 2022-03-28 23:57:00 98.2 F [facility] Heart Rate 2022-03-02 17:19:11 [facility] Respitory Rate 2022-03-02 17:19:11 [facility] Systolic (mm Hg) 2022-03-02 17:19:04 [facility] Diastolic (mm Hg) 2022-03-02 17:19:04 [facility] Heart Rate 2022-03-02 17:19:04 [facility] Temperature Oral (F) 2022-03-02 17:18:05 98 F [facility] Respitory Rate 2022-03-02 14:21:00 [facility] Heart Rate 2022-03-02 13:18:30 [facility] Respitory Rate 2022-03-02 13:18:30 [facility] Systolic (mm Hg) 2022-03-02 13:18:22 [facility] Diastolic (mm Hg) 2022-03-02 13:18:22 [facility] Temperature Oral (F) 2022-03-02 13:17:48 98.7 F [facility] Systolic (mm Hg) 2022-03-02 10:39:58 [facility] Diastolic (mm Hg) 2022-03-02 10:39:58 [facility] Temperature Oral (F) 2022-03-02 10:39:39 98 F [facility] Temperature Oral (F) 2022-03-01 10:19:35 98.2 F [facility] Height 2022-03-01 01:30:00 160.02 cm [facility] Weight 2022-03-01 01:30:00 [facility] BMI Calculated 2022-03-01 01:30:00 Linda Baeza Height 2022-02-28 18:09:00 160.02 cm [facility] BMI Calculated 2022-02-28 18:09:00 Linda long [facility] Weight 2022-02-28 18:09:00 [facility] Systolic blood 2021-09-24 12:03:00 140 mm[Hg] [facility] Diastolic blood 2021-09-24 12:03:00 80 mm[Hg] [facility] Heart rate 2021-09-24 12:03:00 111 /min [facility] Body temperature 2021-09-24 12:03:00 37.11 Tika [facility] Respiratory rate 2021-09-24 12:03:00 18 /min [facility] Oxygen saturation in 2021-09-24 12:03:00 99 /min [facility] Arterial blood by Medical Ce nter Pulse oximetry Body weight 2021-09-24 11:00:00 80.5 kg [facility] BMI 2021-09-24 11:00:00 33.55 kg/m2 [facility] Body height 2021-08-30 19:00:00 154.9 cm [facility] Heart rate 2021-08-25 15:00:00 108 /min [facility] Respiratory rate 2021-08-25 15:00:00 20 /min [facility] Oxygen saturation in 2021-08-25 13:30:00 100 /min [facility] Arterial blood by [facility] Ce [facility] Pulse oximetry Systolic blood 2021-08-25 12:21:00 185 mm[Hg] [facility] Diastolic blood 2021-08-25 12:21:00 77 mm[Hg] [facility] Body temperature 2021-08-25 11:00:00 36.78 Tika [facility] Respiratory rate 2021-08-25 08:29:00 19 /min [facility] Heart rate 2021-08-25 08:27:00 98 /min [facility] Oxygen saturation in 2021-08-25 08:27:00 100 /min [facility] Arterial blood by Medical Ce [facility] Pulse oximetry Body temperature 2021-08-25 07:30:00 37.28 Tika [facility] Body weight 2021-08-25 04:00:00 75.6 kg [facility] BMI 2021-08-25 04:00:00 31.49 kg/m2 [facility] Systolic blood 2021-08-24 11:15:00 146 mm[Hg] [facility] Diastolic blood 2021-08-24 11:15:00 62 mm[Hg] [facility] Body height 2021-08-11 01:00:00 154.9 cm [facility] Procedures Procedure Date / Time Performing Clinician Source Performed UNMONITORED VIDEO-EEG 2022-06-16 [facility] 12 HRS 1MIN-26HRS 08:45:52 HEPATITIS B SURFACE 2022-06-15 [facility] ANTIGEN 18:46:00 Jimena CBC WITH PLATELET AND 2022-06-15 [facility] DIFFERENTIAL 08:37:00 BASIC METABOLIC PANEL 2022-06-15 [facility] 08:37:00 ESTIMATED GFR 2022-06-15 [facility] 08:37:00 EEG SETUP 2022-06-15 [facility] 06:27:19 EEG (ROUTINE) 2022-06-15 [facility] 02:32:54 ECG 12-LEAD 2022-06-15 [facility] 01:44:51 Tiago HEMODIALYSIS 2022-06-15 [facility] 01:19:26 Jimena ECG ED PRELIMINARY 2022-06-14 Bermeo, [facility] INTERPRETATION 21:51:59 TROPONIN T 2022-06-14 [facility] Hospit al 20:44:00 Tiago MRI BRAIN WO CONTRAST [facility] ANGIOGRAM NECK W WO 2022-06-14 [facility] CONTRAST 17:26:[address] ANGIOGRAM HEAD W WO 2022-06-14 [facility] CONTRAST 17:26:22 Tiago CBC WITH PLATELET AND 2022-06-14 [facility] DIFFERENTIAL 17:12:00 Tiago COMPREHENSIVE METABOLIC 2022-06-14 [facility] PANEL 17:12:00 Ti[facility] TROPONIN T [facility] Tiago B NATRIURETIC PEPTIDE 2022-06-14 [facility] 17:12:00 Tiago PARTIAL THROMBOPLASTIN 2022-06-14 [facility] TIME (PTT) 17:12:00 Tiago PROTHROMBIN TIME WITH 2022-06-14 [facility] INR 17:12:00 Tiago ESTIMATED GFR [facility] STROKE BRAIN WO 2022-06-14 [facility] pital CONTRAST 16:54:12 Tiago [id number] 2022-03-03 [facility] 00:00:00 [facility] [id number] 2022-03-03 [facility] 00:00:00 [facility] [id number] 2022-02-24 [facility] 00:00:00 [facility] [id number] 2021-12-10 [facility] 00:00:00 [facility] POCT-GLUCOSE METER 2021-09-[address] [facility] Medical 11:42:00 [facility] BASIC METABOLIC PANEL 2021-09-24 Brett Shah [facility] 05:39:00 [facility] POCT-GLUCOSE METER 2021-09-24 [facility] 00:[facility]00 [facility] POCT-GLUCOSE METER 2021-09-23 [facility] 16:57:00 [facility] SARS-COV2/RT-PCR ([facility] 2021-09-23 Irlanda Short [facility] & REF LABS) 09:51:00 [facility] POCT-GLUCOSE METER 2021-09-23 [facility] 08:04:00 [facility] POCT-GLUCOSE METER 2021-09-23 [facility] 06:14:00 [facility] TYPE AND SCREEN, 2021-09-23 [facility] 04:26:00 [place] C-REACTIVE PROTEIN 2021-09-23 [facility] 03:30:00 [place] MAGNESIUM 2021-09-23 Bartsch [facility] 03:30:00 [place] PHOSPHORUS 2021-09-23 [facility] 03:30:00 [place] CBC (HEMOGRAM ONLY) 2021-09-23 [facility] Wendy [facility] 03:30:00 [place] BASIC METABOLIC PANEL 2021-09-23 Dion Cedillo [facility] Medical 03:30:00 [place] POCT-GLUCOSE METER 2021-09-22 [facility] 23:40:[address] [facility] [address] BRAIN WITHOUT IV 2021-09-22 [facility] CONTRAST 17:55:00 [facility] VITAMIN B12 2021-09-22 [facility] 13:18:00 [place] TSH 2021-09-22 [facility] 13:18:00 [place] POCT-GLUCOSE METER 2021-09-22 [facility] 11:47:00 [facility] POCT-GLUCOSE METER 2021-09-21 Brett Shah [facility] 23:20:00 [facility] HEMODIALYSIS INPATIENT 2021-09-21 Teresa Demar [facility] 22:09:09 [place] MISCELLANEOUS LAB ORDER 2021-09-21 CecilioPablo [facility] 18:20:00 [place] VALPROIC ACID LEVEL, 2021-09-21 [facility] T[facility] 18:19:00 Center LEVETIRACETAM LEVEL 2021-09-21 [facility] 18[facility]19:00 [place] POCT-GLUCOSE METER 2021-09-21 Ralph [facility] 11:26:00 [facility] POCT-GLUCOSE METER 2021-09-21 Stephane Shahokeanachaz [facility] 06:46:00 [facility] C-REACTIVE PROTEIN 2021-09-21 Raul Wendy Gonzalezee [facility] 04:41:00 [place] BASIC METABOLIC PANEL 2021-09-21 Raul Wendy [facility] 04:41:00 [place] MAGNESIUM 2021-09-21 Raul Wendy [facility] 04:41:00 [place] PHOSPHORUS 2021-09-21 Raul Wendy Joann [facility] 04:41:00 [place] POCT-GLUCOSE METER 2021-09-20 Raul Wendy Joann [facility] 23:30:00 Center POCT-GLUCOSE METER 2021-09-20 Raul Wendy Joann [facility] 17:59:00 Center POCT-GLUCOSE METER 2021-09-20 [facility] Joann [facility] 12:11:00 Center POCT-GLUCOSE METER 2021-09-20 [facility] Wendy Joann [facility] 05:52:00 Center POCT-GLUCOSE METER 2021-09-19 Raul Wendy Joann [facility] 23:22:00 [place] POCT-GLUCOSE METER 2021-09-19 [facility] 17:[facility]00 [facility] HEMODIALYSIS INPATIENT 2021-09-19 Demar Moore [facility] 12:35:40 Center POCT-GLUCOSE METER 2021-09-19 [facility], Wendy Joann [facility] 11:24:00 Center POCT-GLUCOSE METER 2021-09-19 [facility] Wendy Joann [facility] 06:29:00 Center MAGNESIUM 2021-09-19 [facility] Wendy Joann [facility] 04:06:00 Center BASIC METABOLIC PANEL 2021-09-19 [facility], Wendy Joann [facility] 04:06:00 Center C-REACTIVE PROTEIN 2021-09-19 Bartsch, Wendy Joann [facility] 04:06:00 Center POCT-GLUCOSE METER 2021-09-19 [facility], Wendy Joann [facility] 00:44:00 Center POCT-GLUCOSE METER 2021-09-18 [facility], Wendy Joann [facility] 17:46:00 Center POCT-GLUCOSE METER 2021-09-18 [facility], Wendy Joann [facility] 11:47:00 [place] PHOSPHORUS 2021-09-18 [facility], Wendy Joann [facility] 04:21:00 Center CBC (HEMOGRAM ONLY) 2021-09-18 [facility], [facility] 04:21:00 Center BASIC METABOLIC PANEL 2021-09-18 [facility], Wendy Joann [facility] 04:21:00 [place] MAGNESIUM 2021-09-18 [facility], Wendy Joann [facility] 04:21:00 Center HEMODIALYSIS INPATIENT 2021-09-17 Demar Moore [facility] 19:51:14 Center POCT-GLUCOSE METER 2021-09-17 [facility], Wendy Joann [facility] 17:15:00 Center POCT-GLUCOSE METER 2021-09-17 [facility] 12:05:00 Center CBC (HEMOGRAM ONLY) 2021-09-17 [facility], Wendy Joann [facility] 04:15:00 Center BASIC METABOLIC PANEL 2021-09-17 [facility], Wendy Joann [facility] 04:15:00 [place] MAGNESIUM 2021-09-17 [facility], Wendy Joann [facility] 04:15:00 [place] POCT-GLUCOSE METER 2021-09-16 [facility] 22:38:00 [place] POCT-GLUCOSE METER 2021-09-16 PaddybuckWendy [facility] 17:22:00 [place] BLOOD CULTURE 2021-09-16 Demar Moore [facility] 14:56:00 [place] HEMODIALYSIS INPATIENT 2021-09-16 TeresaDemar [facility] [facility] 12:40:49 [place] POCT-GLUCOSE METER 2021-09-16 [facility] 11:11:00 [place] SARS-COV2/RT-PCR ([facility] 2021-09-16 Irlanda Short [facility] & REF LABS) 09:56:00 Zade [place] POCT-GLUCOSE METER 2021-09-16 Raul [facility] 06:15:00 Center PHOSPHORUS 2021-09-16 [facility]ul [facility] 03:20:00 Center VANCOMYCIN LEVEL, 2021-09-16 Goldie Bowie [facility] RANDOM 03:20:00 [place] CBC (HEMOGRAM ONLY) 2021-09-16 Raul Wendy David [facility] 03:20:00 [place] BASIC METABOLIC PANEL 2021-09-16 Raul Wendy David [facility] 03:20:00 [place] MAGNESIUM 2021-09-16 Raul [facility] 03:20:00 [place] POCT-GLUCOSE METER 2021-09-15 [facility] Wendy David [facility] 23:07:00 [place] POCT-GLUCOSE METER 2021-09-15 [facility] 17:02:00 [place] BLOOD CULTURE 2021-09-15 [facility] 13:55:00 [place] POCT-GLUCOSE METER 2021-09-15 [facility] 11:24:00 [place] CBC W/PLT COUNT & AUTO 2021-09-[address] [facility] DIFFERENTIAL 08:50:00 [place] LACTIC ACID, VENOUS 2021-09-15 Wendy Carter [facility] 08:50:00 [place] PROCALCITONIN 2021-09-15 PaddybuckWendy [facility] 08:50:00 [place] CBC W/PLT COUNT & AUTO 2021-09-[address] [facility] Medical DIFFERENTIAL 08:50:00 [place] POCT-GLUCOSE METER 2021-09-15 RaulWendy [facility] 06:01:00 [place] POCT-GLUCOSE METER 2021-09-14 [facility] 23:24:00 [place] POCT-GLUCOSE METER 2021-09-14 [facility] 17:58:00 [place] CBC (HEMOGRAM ONLY) 2021-09-14 Kashmir Hopkins [facility] 17:03:00 [place] XR CHEST 1 VIEW 2021-09-14 RaulWendy [facility] PORTABLE / BEDSIDE 16:54:00 [place] CBC W/PLT COUNT & AUTO 2021-09-14 [facility] DIFFERENTIAL 13:35:00 [place] BASIC METABOLIC PANEL 2021-09-14 Teresa [facility] 13:35:00 [place] MAGNESIUM 2021-09-14 Teresa Hawthorn CenterdrK[facility] 13:35:00 [place] PHOSPHORUS 2021-09-14 Teresa [facility] CenterK[facility] 13:35:00 [place] CBC W/PLT COUNT & AUTO 2021-09-14 Teresa [facility] DIFFERENTIAL 13:35:00 [place] POCT-GLUCOSE METER 2021-09-14 RaulWendy [facility] 12:10:00 [place] HEMODIALYSIS INPATIENT 2021-09-14 Jorge MooreK[facility] 09:22:25 [place] POCT-GLUCOSE METER 2021-09-14 [facility] Phoenixchaz [facility] 07:19:00 [facility] POCT-GLUCOSE METER 2021-09-14 [facility] Phoenixchaz [facility] 06:21:00 [facility] POCT-GLUCOSE METER 2021-09-14 Konrad [facility] 01:06:00 [facility] POCT-GLUCOSE METER 2021-09-14 [facility] 00:29:00 [facility] POCT-GLUCOSE METER 2021-09-13 [facility] 18:48:00 [facility] POCT-GLUCOSE METER 2021-09-13 [facility] 12:42:00 [facility] POCT-GLUCOSE METER 2021-09-13 [facility] northm[facility]ala [facility] 05:59:00 [facility] POCT-GLUCOSE METER 2021-09-12 Andreinasalmamikala [facility] 23:36:00 [facility] HEMODIALYSIS INPATIENT 2021-09-12 [facility] 18:55:00 [place] POCT-GLUCOSE METER 2021-09-12 [facility] 18:44:00 [facility] HEPATITIS B SURFACE 2021-09-12 [facility] ANTIGEN 15:13:00 [place] POCT-GLUCOSE METER 2021-09-12 [facility] northm[facility] 13:35:00 [facility] POCT-GLUCOSE METER 2021-09-12 [facility] northmikala [facility] 12:59:00 [facility] REPORT OF PROCEDURE - 2021-09-12 Dl Diana [facility] ENDOSCOPY URL 12:44:29 [place] ESOPHAGOGASTRODUODENOSC 2021-09-12 Dl Diana [facility] OPY, WITH PEG TUBE 11:49:00 [place] INSERTION POCT-GLUCOSE METER 2021-09-12 [facility] 06:29:00 [facility] BASIC METABOLIC PANEL 2021-09-12 Ralph [facility] 04:06:00 [facility] CBC W/PLT COUNT & AUTO 2021-09-12 Brett Shah [facility] Medical DIFFERENTIAL 04:06:00 [facility] APTT 2021-09-12 Kellie, Kashmir [facility] 04:06:00 [place] CBC W/PLT COUNT & AUTO 2021-09-12 Brett Shah [facility] Medical DIFFERENTIAL 04:06:00 [facility] POCT-GLUCOSE METER 2021-09-11 Brett Shah [facility] 23:45:00 [facility] CBC (HEMOGRAM ONLY) 2021-09-11 Kell[address] [facility] 18:06:00 Center APTT 2021-09-11 Brett Shah [facility] Me dical 18:05:00 [facility] POCT-GLUCOSE METER 2021-09-11 Konrad ShahMartin [facility] 17:56:00 [facility] POCT-GLUCOSE METER 2021-09-11 [facility] 13:01:00 [facility] APTT 2021-09-11 [facility] Me dical 12:10:00 [facility] POCT-GLUCOSE METER 2021-09-11 Konrad ShahMartin [facility] 10:44:00 [facility] POCT-GLUCOSE METER 2021-09-11 [facility] 06:29:00 [facility] APTT 2021-09-11 Kellie [facility] 05:08:00 Center APTT 2021-09-11 Kellie [facility]Northern [facility] 01:38:00 Center POCT-GLUCOSE METER 2021-09-11 Andreinakami [facility] 01:04:00 [facility] APTT 2021-09-10 Kellie Kashmir [facility] 17:48:00 [place] POCT-GLUCOSE METER 2021-09-10 [facility] 17:17:00 [facility] POCT-GLUCOSE METER 2021-09-10 Konrad Shahchaz [facility] 11:44:00 [facility] APTT 2021-09-10 Kellie Kashmir [facility] ical 10:41:00 [place] APTT 2021-09-10 Kellie, Kashmir [facility] 08:56:00 Center POCT-GLUCOSE METER 2021-09-10 Andreinakami Konradchaz [facility] 08:02:00 [facility] POCT-GLUCOSE METER 2021-09-10 Ralph Konradchaz [facility] 07:02:00 [facility] APTT 2021-09-10 Kellie Kashmir [facility] 02:33:00 [place] POCT-GLUCOSE METER 2021-09-10 Andreinakami Konradchaz [facility] 00:35:00 [facility] APTT 2021-09-09 [address] [facility] Med ical 17:29:00 [place] POCT-GLUCOSE METER 2021-09-09 Ralhp Konradchaz [facility] 17:18:00 [facility] SARS-COV2/RT-PCR ([facility] 2021-09-09 Irlanda Short [facility] & REF LABS) 14:25:00 [facility] POCT-GLUCOSE METER 2021-09-09 Andreinakami Konradchaz [facility] 12:12:00 [facility] HEMODIALYSIS INPATIENT 2021-09-09 Demar Moore [facility] 11:44:35 [place] POCT-GLUCOSE METER 2021-09-09 Andreinakami Konradchaz [facility] 10:03:00 [facility] APTT 2021-09-09 Zak Hopkinsok [facility] 08:00:00 [place] POCT-GLUCOSE METER 2021-09-09 Ralph Konradchaz [facility] 06:11:00 [facility] PROTHROMBIN TIME/INR 2021-09-09 TeofiloStephanecaridadchaz [facility] Medical 05:26:00 [facility] BASIC METABOLIC PANEL 2021-09-09 Demar [facility] 05:26:00 [place] CBC W/PLT COUNT & AUTO 2021-09-09 Demar Moore [facility] DIFFERENTIAL 05:26:00 [place] MAGNESIUM 2021-09-09 Demar Moore [facility] 05:26:00 [place] PHOSPHORUS 2021-09-09 Demar Moore [facility] 05:26:00 [place] CBC W/PLT COUNT & AUTO 2021-09-09 Demar Moore [facility] DIFFERENTIAL 05:26:00 [place] APTT 2021-09-09 Kellie, [facility] 00:44:00 [place] POCT-GLUCOSE METER 2021-09-08 [facility] 23:38:00 [facility] CBC (HEMOGRAM ONLY) 2021-09-08 [facility] 17:53:00 [place] POCT-GLUCOSE METER 2021-09-08 [facility] 17:23:00 [facility] APTT 2021-09-08 Kellie, Kashmir [facility] 15:58:00 [place] APTT 2021-09-08 Kellie, Kashmir [facility] 14:05:00 [place] POCT-GLUCOSE METER 2021-09-08 [facility] 12:17:00 [facility] APTT 2021-09-08 Kellie, Kashmir [facility] 06:51:00 [place] APTT 2021-09-07 Kellie, Kashmir [facility] 22:15:00 [place] APTT 2021-09-07 Kellie, Kashmir [facility] 17:22:00 [place] APTT 2021-09-07 Kellie, Kashmir [facility] 10:55:00 [place] APTT 2021-09-07 Kellie, Kashmir [facility] 08:49:00 [place] HEMODIALYSIS INPATIENT 2021-09-07 [facility] 08:48:45 [place] APTT 2021-09-07 Kellie [facility]Northern Light [facility] Med ical 00:01:00 [place] APTT 2021-09-06 Brett Shah [facility] dical 17:16:00 [facility] APTT 2021-09-06 Brett Shah [facility] dical 09:14:00 [facility] APTT 2021-09-06 Kellie, [facility]Northern [facility] ical 06:21:00 [place] APTT 2021-09-06 Kellie, [facility]Northern [facility] ical 04:20:00 [place] CBC (HEMOGRAM ONLY) 2021-09-05 Kellie [facility] 21:26:00 [place] APTT 2021-09-05 Kellie [facility] ical 21:26:00 [place] HEMODIALYSIS INPATIENT 2021-09-05 Jorge [facility] 11:45:00 [place] POCT-GLUCOSE METER 2021-09-05 Kellie [facility] 11:11:00 [place] CBC W/PLT COUNT & AUTO 2021-09-05 Kellie [facility] DIFFERENTIAL 05:08:00 [place] BASIC METABOLIC PANEL 2021-09-05 Kellie [facility] 05:08:00 [place] CBC W/PLT COUNT & AUTO 2021-09-05 Kellie [facility] DIFFERENTIAL 05:08:00 [place] SARS-COV2/RT-PCR ([facility] 2021-09-03 Irlanda Short [facility] & REF LABS) 10:23:00 Zade [place] BASIC METABOLIC PANEL 2021-09-02 Teresa [facility] CenterK[facility] 03:44:00 [place] CBC W/PLT COUNT & AUTO 2021-09-02 Jorge [facility] DIFFERENTIAL 03:44:00 [place] MAGNESIUM 2021-09-02 Teresa [facility] 03:44:00 [place] PHOSPHORUS 2021-09-02 Jorge MooreK[facility] 03:44:00 [place] CBC W/PLT COUNT & AUTO 2021-09-02 Jorge [facility] DIFFERENTIAL 03:44:00 [place] HEMODIALYSIS INPATIENT 2021-08-31 [facility] 17:24:00 [place] POCT-GLUCOSE METER 2021-08-31 [facility] 16:38:00 [facility] POCT-GLUCOSE METER 2021-08-31 [facility] 12:07:00 [facility] VALPROIC ACID LEVEL, 2021-08-31 Luna Parada [facility] TOTAL 10:43:00 [place] POCT-GLUCOSE METER 2021-08-31 [facility] 05:56:00 [facility] CBC W/PLT COUNT & AUTO 2021-08-31 Lion, [facility] DIFFERENTIAL 02:52:00 [place] MAGNESIUM 2021-08-31 Lion, [facility] Medical 02:52:00 [place] PHOSPHORUS 2021-08-31 Lion, [facility] Medical 02:52:00 [place] BASIC METABOLIC PANEL 2021-08-31 AhmadNichelle [facility] 02:52:00 [place] APTT 2021-08-31 Noorbhai, Jones [facility] edical 02:52:00 Zoebali [place] CBC W/PLT COUNT & AUTO 2021-08-31 Lion, [facility] DIFFERENTIAL 02:52:00 [place] POCT-GLUCOSE METER 2021-08-30 [facility] 23:30:00 [facility] POCT-GLUCOSE METER 2021-08-30 [facility] 18:14:00 [facility] POCT-GLUCOSE METER 2021-08-30 [facility] 11:35:00 [facility] EEG 12-26 HR CONTINUOUS 2021-08-30 [facility] Medical MONITORING WITH VIDEO 06:28:00 [facility] POCT-GLUCOSE METER 2021-08-30 Ra Ilyahul [facility] 05:51:00 [facility] POCT-GLUCOSE METER 2021-08-30 [facility] 04:44:00 [facility] CBC W/PLT COUNT & AUTO 2021-08-30 Elisabet Seymourutha [facility] DIFFERENTIAL 03:21:00 [place] MAGNESIUM 2021-08-30 Lion, Priti [facility] Medical 03:21:00 [place] PHOSPHORUS 2021-08-30 Lion, Prtii [facility] Medical 03:21:00 [place] BASIC METABOLIC PANEL 2021-08-30 Nichelle Day [facility] 03:21:00 [place] APTT 2021-08-30 Noorbhai, Jones [facility] 03:21:00 [facility] CBC W/PLT COUNT & AUTO 2021-08-30 [facility] DIFFERENTIAL 03:21:00 [place] XR CHEST 1 VIEW 2021-08-30 Gail Joya [facility] PORTABLE / BEDSIDE 01:16:00 [place] POCT-GLUCOSE METER 2021-08-29 [facility] 23:38:00 [facility] APTT 2021-08-29 Noorbhai, Jones [facility] edical 22:06:00 [facility] POCT-GLUCOSE METER 2021-08-29 Ra Ilyahul [facility] 18:10:00 [facility] APTT 2021-08-29 Noorbhai, Jones [facility] 15:04:00 [facility] POCT-GLUCOSE METER 2021-08-29 [facility]Wil[facility] 11:46:00 [facility] HEMODIALYSIS INPATIENT 2021-08-29 Kerwin Mclean [facility] 07:31:54 Center APTT 2021-08-29 Noorbhai, Jones [facility] 06:51:00 [facility] EEG 12-26HR 2021-08-29 Elmer Acevedo [facility] ed[facility] INTERMITTENT MONITORING 06:13:00 [facility] nter WITH VIDEO POCT-GLUCOSE METER 2021-08-29 Christophcommunity healthwilliam [facility] 05:32:00 [facility] MAGNESIUM 2021-08-29 [facility] 04:59:00 Center PHOSPHORUS 2021-08-29 Lion [facility] 04:59:00 [place] COMPREHENSIVE METABOLIC 2021-08-29 Nichelle Day [facility] Medical PANEL 04:59:00 [place] BLOOD GAS, ARTERIAL 2021-08-29 Lion [facility]The [facility] 03:41:00 [place] CBC W/PLT COUNT & AUTO 2021-08-29 Lion [facility] DIFFERENTIAL 03:40:00 [place] CBC W/PLT COUNT & AUTO 2021-08-29 Lion [facility] DIFFERENTIAL 03:40:00 [place] XR CHEST 1 VIEW 2021-08-29 Gail Joya [facility] PORTABLE / BEDSIDE 02:28:00 [place] POCT-GLUCOSE METER 2021-08-29 [facility] 00:28:00 [facility] APTT 2021-08-29 [facility] edical 00:23:00 [facility] APTT 2021-08-28 [facility] edical 22:05:00 [facility] XR ABDOMEN/KUB 1 VIEW 2021-08-28 [facility] PORT[facility] 18:50:00 [facility] POCT-GLUCOSE METER 2021-08-28 [facility] 18:08:00 [facility] APTT 2021-08-28 [facility] edical 12:53:00 [facility] POCT-GLUCOSE METER 2021-08-28 [facility] 12:02:00 [facility] POCT-GLUCOSE METER 2021-08-28 [facility] Acevedo [facility] 07:17:00 [facility] EEG 12-26HR 2021-08-28 [facility], [facility] edical INTERMITTENT MONITORING 06:09:00 [facility] nter WITH VIDEO CBC W/PLT COUNT & AUTO 2021-08-28 Lion [facility] DIFFERENTIAL 04:10:00 [place] CBC W/PLT COUNT & AUTO 2021-08-28 Lion [facility] DIFFERENTIAL 04:10:00 [place] BASIC METABOLIC PANEL 2021-08-28 Lion [facility] 04:10:00 [place] MAGNESIUM 2021-08-28 Lion [facility] 04:10:00 [place] PHOSPHORUS 2021-08-28 Lion [facility] 04:10:00 [place] BLOOD GAS, VENOUS 2021-08-28 [facility] 04:10:00 [facility] PT/APTT 2021-08-28 [facility] edical 04:10:00 [facility] XR CHEST 1 VIEW 2021-08-28 Gail Joya [facility] PORTABLE / BEDSIDE 00:39:00 [place] POCT-GLUCOSE METER 2021-08-27 [facility] 23:45:00 [facility] PT/APTT 2021-08-[address] [facility] [address] [facility] edical 21:17:00 [facility] POCT-GLUCOSE METER 2021-08-27 [facility] Medical 17:30:00 [facility] APTT 2021-08-27 Robert De La Vega [facility] edical 14:40:00 [facility] POCT-GLUCOSE METER 2021-08-27 [facility] Medical 12:20:00 [facility] POCT-GLUCOSE METER 2021-08-27 [facility] 08:16:00 [facility] POCT-GLUCOSE METER 2021-08-27 [facility] 07:02:00 [facility] PT/APTT 2021-08-27 [facility] edical 06:57:00 [facility] BLOOD GAS, ARTERIAL 2021-08-27 Lion [facility] 06:39:00 [place] CBC W/PLT COUNT & AUTO 2021-08-27 Lion [facility] DIFFERENTIAL 06:35:00 [place] CBC W/PLT COUNT & AUTO 2021-08-27 Lion [facility] DIFFERENTIAL 06:35:00 [place] BASIC METABOLIC PANEL 2021-08-27 Lion [facility] 06:35:00 [place] MAGNESIUM 2021-08-27 Lion [facility] 06:35:00 [place] PHOSPHORUS 2021-08-27 Lion [facility] 06:35:00 [place] VALPROIC ACID LEVEL, 2021-08-27 Brisa Trujillo [facility] TOTAL 06:35:00 [place] EEG 12-26 HR CONTINUOUS 2021-08-27 Robert De La Vega [facility] MONITORING WITH VIDEO 06:16:00 [facility] XR CHEST 1 VIEW 2021-08-27 Gail Joya [facility] PORTABLE / BEDSIDE 02:27:00 [place] POCT-GLUCOSE METER 2021-08-27 [facility] 01:37:00 [facility] PREPARE RBC 2021-08-26 Maria De Leon [facility] 23:55:00 [place] POCT-GLUCOSE METER 2021-08-26 [facility] 18:09:00 [facility] HEMODIALYSIS INPATIENT 2021-08-26 Demar Moore [facility] 16:10:19 [place] POCT-GLUCOSE METER 2021-08-26 [facility] 13:00:00 [facility] APTT 2021-08-26 [facility] edical 10:08:00 [facility] POCT-GLUCOSE METER 2021-08-26 [facility] 05:24:00 [facility] BLOOD GAS, ARTERIAL 2021-08-26 Lion [facility] 04:29:00 [place] BASIC METABOLIC PANEL 2021-08-26 Lion [facility] 04:28:00 [place] MAGNESIUM 2021-08-26 Lion [facility] 04:28:00 [place] PHOSPHORUS 2021-08-26 Lion [facility] 04:28:00 [place] VALPROIC ACID LEVEL, 2021-08-26 Brisa Trujillo [facility] TOTAL 04:28:00 [place] APTT 2021-08-26 [facility] edical 04:27:00 [facility] XR CHEST 1 VIEW 2021-08-26 Gail Joya [facility] PORTABLE / BEDSIDE 02:31:00 [place] CBC W/PLT COUNT & AUTO 2021-08-26 Lion [facility] DIFFERENTIAL 00:48:00 [place] CBC W/PLT COUNT & AUTO 2021-08-26 Lion [facility] DIFFERENTIAL 00:48:00 [place] POCT-GLUCOSE METER 2021-08-25 [facility] 23:25:00 [facility] APTT 2021-08-25 [facility], [facility] edical 21:28:00 [facility] TRANSFUSE LEUKO-REDUCED 2021-08-25 [facility], [facility] RED BLOOD CELLS 19:00:00 [facility] POCT-GLUCOSE METER 2021-08-25 [facility] 18:13:00 [facility] APTT 2021-08-25 [facility] edical 14:25:00 [facility] POCT-GLUCOSE METER 2021-08-25 Christophcommunity healthwilliam [facility] 12:43:00 [facility] PREPARE LEUKO-REDUCED 2021-08-25 [facility] RBC 12:14:00 [facility] APTT 2021-08-25 Vandana Andrade [facility] 11:00:00 [place] LACTIC ACID, VENOUS 2021-08-25 Nichelle Day [facility] 11:00:00 Center TYPE AND SCREEN, 2021-08-25 [facility] AUTOMATED 11:00:00 [facility] SARS-COV2/RT-PCR ([facility] 2021-08-[address] [facility] & REF LABS) 10:50:00 [facility] CBC (HEMOGRAM ONLY) 2021-08-25 Lion [facility] 05:54:00 [place] POCT-GLUCOSE METER 2021-08-25 [facility] 05:50:00 [facility] BLOOD GAS, ARTERIAL 2021-08-25 Lion [facility] 02:52:00 [place] CBC W/PLT COUNT & AUTO 2021-08-25 Lion [facility] DIFFERENTIAL 02:52:00 [place] BASIC METABOLIC PANEL 2021-08-25 Lion [facility] 02:52:00 [place] MAGNESIUM 2021-08-25 [facility] 02:52:00 [place] PHOSPHORUS 2021-08-25 Lion [facility] 02:52:00 [place] LACTIC ACID, VENOUS 2021-08-25 Lion [facility] 02:52:00 [place] APTT 2021-08-25 [facility] edical 02:52:00 [facility] CREATINE KINASE (CK) 2021-08-25 LatoyahiNichelle kennedy [facility] 02:52:00 [place] CBC W/PLT COUNT & AUTO 2021-08-25 El[facility]abet [facility]ymourPal[facility]ale [facility] Center DIFFERENTIAL 02:52:00 [place] HEPATIC FUNCTION PANEL 2021-08-25 [facility] 02:52:00 [place] XR CHEST 1 VIEW 2021-08-25 Gail Joya [facility] PORTABLE / BEDSIDE 02:33:00 [place] POCT-GLUCOSE METER 2021-08-24 [facility] 23:10:00 [facility] POCT-GLUCOSE METER 2021-08-24 [facility] 17:03:00 [facility] APTT 2021-08-24 Robert De La Vega [facility] edical 16:50:00 [facility] LACTIC ACID, ARTERIAL 2021-08-24 [facility] 16:50:00 [place] POCT-GLUCOSE METER 2021-08-24 [facility] 14:19:00 [facility] HEMODIALYSIS INPATIENT 2021-08-24 Demar Moore [facility] 11:19:00 [place] XR CHEST 1 VIEW 2021-08-24 [facility] edical PORTABLE / BEDSIDE 09:46:00 [facility] POCT-GLUCOSE METER 2021-08-24 [facility] 05:49:00 [facility] PHENYTOIN LEVEL, TOTAL 2021-08-24 Bghigh, Sherita [facility] 05:41:00 [place] BLOOD GAS, ARTERIAL 2021-08-24 Lion [facility] 04:58:00 [place] CBC W/PLT COUNT & AUTO 2021-08-24 Lion [facility] DIFFERENTIAL 04:54:00 [place] BASIC METABOLIC PANEL 2021-08-24 Lion [facility] 04:54:00 [place] MAGNESIUM 2021-08-24 Lion [facility] 04:54:00 Center PHOSPHORUS 2021-08-24 Lion [facility] 04:54:00 [place] CALCIUM, IONIZED 2021-08-24 Lion [facility] 04:54:00 [place] LACTIC ACID, VENOUS 2021-08-24 Lion [facility] 04:54:00 [place] CBC W/PLT COUNT & AUTO 2021-08-24 Lion [facility] DIFFERENTIAL 04:54:00 [place] (CELLAVISION MANUAL 2021-08-24 Lion [facility] DIFF) 04:54:00 [place] APTT 2021-08-24 [facility] 04:53:00 [facility] ABDOMEN/KUB 1 VIEW 2021-08-24 Lion [facility] PORTABLE 00:26:00 [place] X[place] CHEST 1 VIEW 2021-08-24 Gail Joya [facility] PORTABLE / BEDSIDE 00:25:00 [place] POCT-GLUCOSE METER 2021-08-23 [facility] 23:48:00 [facility] APTT 2021-08-23 [facility] edical 20:32:00 [facility] APTT 2021-08-23 [facility] edical 18:28:00 [facility] POCT-GLUCOSE METER 2021-08-23 [facility] Medical 16:40:00 [facility] POCT-GLUCOSE METER 2021-08-23 [facility] 11:52:00 [facility] APTT 2021-08-23 [facility] ed[facility] 11:46:00 [facility] VENOUS DOPPLER ARMS 2021-08-23 Luis Eduardo Talamantes [facility] BILATERAL 10:15:00 Center XR CHEST 1 VIEW 2021-08-23 Dinesh Head [facility] PORTABLE / BEDSIDE 09:25:00 [place] SPUTUM CULTURE + GRAM 2021-08-23 Dinesh Head [facility] STAIN 09:21:00 [place] PROCALCITONIN 2021-08-23 Robert De La Vega [facility] edical 09:03:00 Zoebali [place] EEG 12-26 HR CONTINUOUS 2021-08-23 Ravinder Cunha [facility] MONITORING WITH VIDEO 06:07:00 [place] POCT-GLUCOSE METER 2021-08-23 [facility] 05:13:00 [facility] BLOOD GAS, ARTERIAL 2021-08-23 Lion [facility] 03:48:00 [place] CBC W/PLT COUNT & AUTO 2021-08-23 Lion [facility] DIFFERENTIAL 03:47:00 [place] BASIC METABOLIC PANEL 2021-08-23 Lion [facility] 03:47:00 [place] MAGNESIUM 2021-08-23 Lion [facility] Medical 03:47:00 [place] PHOSPHORUS 2021-08-23 Lion, [facility] 03:47:00 [place] CBC W/PLT COUNT & AUTO 2021-08-23 Henderson [facility] DIFFERENTIAL 03:47:00 [place] (CELLAVISION MANUAL 2021-08-23 Lion [facility] DIFF) 03:47:00 [place] XR CHEST 1 VIEW 2021-08-23 Gail Joya [facility] PORTABLE / BEDSIDE 01:23:00 [place] POCT-GLUCOSE METER 2021-08-23 [facility] 00:24:00 [facility] ALBUMIN 2021-08-22 Demar Moore [facility] 16:57:00 [place] POCT-GLUCOSE METER 2021-08-22 [facility] 16:56:00 [facility] HEMODIALYSIS INPATIENT 2021-08-22 Demar Moore [facility] 11:22:25 [place] EEG 12-26 HR CONTINUOUS 2021-08-22 Ravinder Cunha [facility] MONITORING WITH VIDEO 07:49:00 [place] POCT-GLUCOSE METER 2021-08-22 [facility], [facility] 05:37:00 [place] BASIC METABOLIC PANEL 2021-08-22 [facility], [facility] 03:58:00 [place] MAGNESIUM 2021-08-22 [facility], [facility] 03:58:00 [place] CBC W/PLT COUNT & AUTO 2021-08-22 [facility], [facility] DIFFERENTIAL 03:58:00 [place] BLOOD GAS, ARTERIAL 2021-08-22 [facility], [facility] 03:58:00 [place] PHOSPHORUS 2021-08-22 [facility], [facility] Tadeo [facility] 03:58:00 [place] CBC W/PLT COUNT & AUTO 2021-08-22 [facility], [facility] DIFFERENTIAL 03:58:00 [place] (CELLAVISION MANUAL 2021-08-22 [facility], [facility] DIFF) 03:58:00 [place] XR CHEST 1 VIEW 2021-08-22 Gail Joya [facility] PORTABLE / BEDSIDE 00:32:00 [place] POCT-GLUCOSE METER 2021-08-21 [facility], [facility] 23:43:00 [place] BASIC METABOLIC PANEL 2021-08-21 Dilcia, Fnu [facility] 15:55:00 Center PHOSPHORUS 2021-08-21 McGlennonLuis Eduardo [facility] 15:55:00 [place] PHENYTOIN LEVEL, TOTAL 2021-08-21 Gail Joya prashanth I [facility] 12:14:00 Center HEMOGLOBIN AND 2021-08-21 [facility] edical HEMATOCRIT 12:14:00 Zoebali [place] BASIC METABOLIC PANEL 2021-08-21 Noorbhai, [facility] 12:14:00 Zoebali Center CBC W/PLT COUNT & AUTO 2021-08-21 Dilcia, [facility] Medical DIFFERENTIAL 12:14:00 [place] MAGNESIUM 2021-08-21 Dilcia, [facility] ical 12:14:00 [place] PHOSPHORUS 2021-08-21 Dilcia, [facility] ical 12:14:00 [place] CBC W/PLT COUNT & AUTO 2021-08-21 Dilcia, [facility] DIFFERENTIAL 12:14:00 [place] IGG INDEX (CSF + BLOOD) 2021-08-21 [facility] 12:10:00 [facility] PROTEIN, CSF 2021-08-21 [facility] edical 12:09:00 [facility] CSF CELL COUNT 2021-08-21 [facility] edical W/DIFFERENTIAL 12:09:00 [facility] CSF CULTURE + GRAM 2021-08-21 [facility] Medical STAIN 12:09:00 [facility] GLUCOSE, CSF 2021-08-21 [facility] edical 12:09:00 [facility] MENINGITIS/ENCEPHALITIS 2021-08-21 [facility] PANEL 12:09:00 [facility] PARANEOPLASTIC AB EVAL 2021-08-21 [facility] W/ REFLEX TITER & LB, 12:09:00 [facility] CSF WEST NILE VIRUS, CSF, 2021-08-21 [facility], [facility] IGG & IGM 12:09:00 [facility] EEG 12-26 HR CONTINUOUS 2021-08-21 Ravinder Cunha [facility] MONITORING WITH VIDEO 09:37:58 [place] X[place] CHEST 1 VIEW 2021-08-21 Gail Joya [facility] PORTABLE / BEDSIDE 07:49:00 [place] POCT-GLUCOSE METER 2021-08-21 Maria De Leon [facility] 06:18:00 [place] BLOOD GAS, ARTERIAL 2021-08-21 [facility] 03:24:00 [place] PHENYTOIN LEVEL, TOTAL 2021-08-21 Dilcia, Fnu [facility] Medical AND FREE 03:23:00 [place] BASIC METABOLIC PANEL 2021-08-21 [facility], [facility] 03:23:00 [place] MAGNESIUM 2021-08-21 [facility], Mariacassy Piedra [facility] Medical 03:23:00 [place] PHOSPHORUS 2021-08-21 [facility], Maria Tadeo [facility] Medical 03:23:00 [place] CBC W/PLT COUNT & AUTO 2021-08-21 [facility], [facility] DIFFERENTIAL 03:23:00 [place] CBC W/PLT COUNT & AUTO 2021-08-21 [facility], [facility] DIFFERENTIAL 03:23:00 [place] POCT-GLUCOSE METER 2021-08-21 [facility], [facility] 00:20:00 [place] ECG 12-LEAD 2021-08-20 Unknown, Hl7 Doctor [facility] 23:09:01 [place] ECG 12-LEAD 2021-08-20 PittardBrisa [facility] ical 23:08:35 [place] ECG 12-LEAD 2021-08-20 Unknown, Hl7 Doctor [facility] 23:08:35 [place] POCT-GLUCOSE METER 2021-08-20 [facility], [facility] 22:22:00 [place] POCT-GLUCOSE METER 2021-08-20 [facility], [facility] 17:25:00 [place] PHENYTOIN LEVEL, TOTAL 2021-08-20 Dinesh Head [facility] 14:09:00 [place] INSERT 2021-08-20 McGlenLuis Eduardo bloom [facility] CATH,ART,PERCUT,SHORTTE 13:28:00 [place] RM POCT-GLUCOSE METER 2021-08-20 [facility], [facility] 12:04:00 [place] XR ABDOMEN/KUB 1 VIEW 2021-08-20 Dinesh Head [facility] PORTABLE 11:57:00 [place] POCT-GLUCOSE METER 2021-08-20 [facility], [facility] 11:04:00 [place] EEG 12-26 HR CONTINUOUS 2021-08-20 Ravinder Cunha [facility] MONITORING WITH VIDEO 10:52:21 [place] POCT-GLUCOSE METER 2021-08-20 [facility], Maria [facility] Medical 07:02:00 [place] HEMODIALYSIS INPATIENT 2021-08-20 Maria Dolores Lezama Ranjan [facility] 06:21:50 [place] POCT-GLUCOSE METER 2021-08-20 [facility], [facility] Medical 06:11:00 [place] BLOOD GAS, ARTERIAL 2021-08-20 [facility], [facility] 04:29:00 [place] PTH, INTACT 2021-08-20 Maria Dolores Lezama, Ranjan [facility] 04:28:00 [place] CBC W/PLT COUNT & AUTO 2021-08-20 [facility], [facility] DIFFERENTIAL 04:28:00 [place] BASIC METABOLIC PANEL 2021-08-20 [facility], [facility] Medical 04:28:00 [place] MAGNESIUM 2021-08-20 [facility], [facility] 04:28:00 [place] PHOSPHORUS 2021-08-20 [facility], [facility] 04:28:00 [place] CBC W/PLT COUNT & AUTO 2021-08-20 [facility], [facility] DIFFERENTIAL 04:28:00 [place] POCT-GLUCOSE METER 2021-08-19 [facility], [facility] Medical 19:04:00 [place] POCT-GLUCOSE METER 2021-08-19 [facility] 11:51:00 [place] XR ABDOMEN/KUB 1 VIEW 2021-08-19 Negrete, [facility] PORTABLE 10:50:00 [place] CENTRAL LINE 2021-08-19 Negrete, [facility] ical 10:41:04 Center US GUIDE, VASCULAR 2021-08-19 [facility]te[facility] ACC[facility] 10:41:04 [place] XR CHEST 1 VIEW 2021-08-19 Negrete, [facility] ical PORTABLE / BEDSIDE 10:35:00 [place] SARS-COV2/RT-PCR ([facility] 2021-08-19 Negrete, [facility] Medical & REF LABS) 09:43:00 Center INTUBATION 2021-08-19 Demetrius Mehta [facility] 09:37:37 [place] BLOOD GAS, ARTERIAL 2021-08-19 [facility], [facility] 09:34:00 [place] POCT-GLUCOSE METER 2021-08-19 Zoran [facility] 08:10:00 [place] POCT-GLUCOSE METER 2021-08-19 Zoran, [facility] 06:08:00 [place] CBC W/PLT COUNT & AUTO 2021-08-19 Juaquin, [facility] DIFFERENTIAL 03:37:00 [place] BASIC METABOLIC PANEL 2021-08-19 Juaquin[facility] 03:37:00 [place] CBC W/PLT COUNT & AUTO 2021-08-19 Juaquin, [facility] DIFFERENTIAL 03:37:00 [place] POCT-GLUCOSE METER 2021-08-18 Zoran [facility] 21:06:00 [place] MR BRAIN WITHOUT IV 2021-08-18 Juaquin, [facility] CONTRAST 15:58:[address] [place] [address] BRAIN WITHOUT IV 2021-08-18 Negrete, [facility] CONTRAST 15:56:00 [place] POCT-GLUCOSE METER 2021-08-18 Zoran [facility] 10:36:00 [place] CBC W/PLT COUNT & AUTO 2021-08-18 Tom [facility] DIFFERENTIAL 09:53:00 [place] COMPREHENSIVE METABOLIC 2021-08-18 [facility]ch [facility] PANEL 09:53:00 [place] MAGNESIUM 2021-08-18 Negrete, [facility] ical 09:53:00 [place] CBC W/PLT COUNT & AUTO 2021-08-18 Tom [facility] DIFFERENTIAL 09:53:00 [place] POCT-GLUCOSE METER 2021-08-18 Zoran [facility] 08:48:00 [place] POCT-GLUCOSE METER 2021-08-17 ZoranMarianela alegriageorgette [facility] 17:29:00 [place] POCT-GLUCOSE METER 2021-08-17 Zoran, Marianelageorgette [facility]Robert [facility] 12:33:00 [place] POCT-GLUCOSE METER 2021-08-17 ZoranMarianela alegriageorgette GaliciaRobert [facility]. [facility] 10:39:00 [place] COMPREHENSIVE METABOLIC 2021-08-17 ZoranMarianelageorgette [facility] Medical PANEL 04:57:00 [place] CBC W/PLT COUNT & AUTO 2021-08-17 ZoranMarianelageorgette GaliciaBartow [facility] DIFFERENTIAL 04:57:00 [place] MAGNESIUM 2021-08-17 ZoranMarianela alegriageorgette Galiciaricky [facility] M edical 04:57:00 [place] CBC W/PLT COUNT & AUTO 2021-08-17 ZoranIsaac alegria Fridaricky [facility] Medical DIFFERENTIAL 04:57:00 [place] IR TUNNELED CATHETER 2021-08-16 Jenifer Santos [facility] Medical INSERTION 10:00:00 [facility] METABOLIC 2021-08-16 ZoranMarianela alegriageorgette Staples [facility] Medical PANEL 04:57:00 [place] CBC W/PLT COUNT & AUTO 2021-08-16 ZoranIsaac alegria Fridaricky [facility] Medical DIFFERENTIAL 04:57:00 [place] MAGNESIUM 2021-08-16 ZoranIsaac alegria Fridaricky [facility] ed[facility] 04:57:00 [place] CBC W/PLT COUNT & AUTO 2021-08-16 ZoranIsaac alegria Fridaricky [facility] Medical DIFFERENTIAL 04:57:00 [place] GI PATHOGEN PROFILE BY 2021-08-15 Say Humphreys [facility] Medical PCR 14:45:00 [place] CALCIUM, IONIZED 2021-08-15 Jann, Yo One[facility] 03:35:00 [place] COMPREHENSIVE METABOLIC 2021-08-15 ZoranMarianelageorgette Galiciaricky [facility] PANEL 03:35:00 [place] CBC W/PLT COUNT & AUTO 2021-08-15 ZoranIsaac aricky [facility] DIFFERENTIAL 03:35:00 [place] MAGNESIUM 2021-08-15 Isaac Meehan [facility] edical 03:35:00 [place] HEPATITIS B SURFACE 2021-08-15 Kwame Forteammed [facility] ANTIGEN 03:35:00 [place] HEPATITIS B SURFACE 2021-08-15 Jann [facility] ANTIBODY 03:35:00 [place] CBC W/PLT COUNT & AUTO 2021-08-15 Isaac [facility]han [facility] DIFFERENTIAL 03:35:00 [place] PREPARE LEUKO-REDUCED 2021-08-13 Isaac Meehan [facility] RBC 23:55:00 [place] BASIC METABOLIC PANEL 2021-08-13 Jann [facility] 16:45:00 [place] CBC W/PLT COUNT & AUTO 2021-08-13 Jann [facility] Medical DIFFERENTIAL 16:45:00 [place] CALCIUM, IONIZED 2021-08-13 Jann [facility] 16:45:00 [place] CBC W/PLT COUNT & AUTO 2021-08-13 Jann [facility] Medical DIFFERENTIAL 16:45:00 [place] PHOSPHORUS 2021-08-13 Jann [facility] 10:59:00 [place] C. DIFFICILE GDH TOXIN 2021-08-13 [facility] 10:12:00 [place] COMPREHENSIVE METABOLIC 2021-08-[address] [facility] Medical PANEL 04:52:00 [place] CBC W/PLT COUNT & AUTO 2021-08-13 Pongvaczofiak [facility] Medical DIFFERENTIAL 04:52:00 [place] MAGNESIUM 2021-08-13 Isaac Meehan [facility] edical 04:52:00 [place] CBC W/PLT COUNT & AUTO 2021-08-13 Patrickk [facility] Medical DIFFERENTIAL 04:52:00 [place] BASIC METABOLIC PANEL 2021-08-12 Cesar, Zheng [facility] Medical 19:40:00 [place] TRANSFUSE LEUKO-REDUCED 2021-08-12 Isaac Meehan [facility] RED BLOOD CELLS 14:28:00 Center TYPE AND SCREEN, 2021-08-12 Isaac Meehan [facility] AUTOMATED 10:56:00 [place] COMPREHENSIVE METABOLIC 2021-08-12 Micaela Brendan [facility] Medical PANEL 02:57:00 [place] CBC W/PLT COUNT & AUTO 2021-08-12 Micaela Brendan [facility] Medical DIFFERENTIAL 02:57:00 [place] FERRITIN 2021-08-12 Cesar, [facility] ical 02:57:00 [place] MAGNESIUM 2021-08-12 Isaac Meehan [facility] M edical 02:57:00 [place] CBC W/PLT COUNT & AUTO 2021-08-12 Micaela, [facility] Medical DIFFERENTIAL 02:57:00 [place] BASIC METABOLIC PANEL 2021-08-11 Cesar[facility] 18:00:00 [place] MAGNESIUM 2021-08-11 Cesar[facility] 18:00:00 [place] 2D ECHO W/ DOPPLER 2021-08-11 Isaac Meehan [facility] (CW/PW/COLOR) 13:37:08 [place] COMPREHENSIVE METABOLIC 2021-08-11 Micaela [facility] Medical PANEL 04:42:00 [place] CBC W/PLT COUNT & AUTO 2021-08-[address] [facility] Medical DIFFERENTIAL 04:42:00 [place] HEMOGLOBIN A1C 2021-08-[address] [facility] 04:42:00 [place] LIPID PANEL 2021-08-11 Garrettgmanavaramckay, [facility] 04:42:00 [place] MAGNESIUM 2021-08-11 Cesar, [facility]heng [facility] ical 04:42:00 [place] IRON, TIBC, % SAT. 2021-08-11 Cesar, Zheng [facility] (WITHOUT FERRITIN) 04:42:00 [place] CBC W/PLT COUNT & AUTO 2021-08-11 Garrettgmanavarak, [facility] DIFFERENTIAL 04:42:00 Center CARDIAC CATH REPORT - 2021-08-11 Provider, Default [facility] SCAN 00:00:00 Scanning Center EKG-SCANNED 2021-08-11 Provider, Default [facility] 00:[facility]:00 [facility] AUTHORIZATION FOR 2020-01-30 Doctor Unassigned, No [facility] RELEASE OF PHI 06:01:00 Name Medical Branch MEDICAL 2019-05-23 Doctor Unassigned, No [facility] RELEASE/CLEARANCE FORMS 06:01:00 Name [facility] AUTHORIZATION FOR 2019-05-12 Doctor Unassigned, No [facility] RELEASE OF PHI 06:01:00 [facility] Breast Reduction [facility] Medical [facility] Plan of Care Planned Activity Planned Date Details Comments Source Future Scheduled 2028-01-[address] [facility] [facility] 00:00:00 malignant neoplasm of Medica l Center colon (procedure) [code = 894378926] Future Scheduled 2028-01-[address] [facility] [facility] 00:00:00 malignant neoplasm [facility] Center colon (procedure) [code = 288636549] Future Scheduled 2028-01-[address] [facility] Test 00:00:00 malignant neoplasm [facility] Center colon (procedure) [code = 200230087] Future Scheduled 2028-01-[address] [facility] [facility] Test 00:00:00 malignant neoplasm of Medica l Center colon (procedure) [code = 154378727] Future Scheduled 2028-01-[address] [facility] Test 00:00:00 malignant neoplasm of Medica l Center colon (procedure) [code = 448102646] Future Scheduled 2028-01-[address] [facility] Test 00:00:00 malignant neoplasm of Medica l Center colon (procedure) [code = 526035952] Future Scheduled 2024-08-[address] Test 00:00:00 (procedure) [code = [facility] 13089942] Future Scheduled 2024-08-[address] Test 00:00:00 (procedure) [code = [facility] 95946380] Future Scheduled 2024-08-[address] Test 00:00:00 (procedure) [code = [facility] 76275594] Future Scheduled 2024-08-[address] Test 00:00:00 (procedure) [code = [facility] 97367403] Future Scheduled 2024-08-[address] [facility] Test 00:00:00 (procedure) [code = [facility] 68528738] Future Scheduled 2024-08-[address] Test 00:00:00 (procedure) [code = [facility] 46132580] Future Scheduled 2024-08-[address] Test 00:00:00 (procedure) [code = [facility] 55059115] Future Scheduled 2022-12-24 IMM Influenza Seasonal H [...] Medical Ce nter Vaccine (#1)] Future Scheduled 2022-10-04 Screening for [facility] Test 12:57:51 malignant neoplasm of colon (procedure) [code = 187358959] Future Scheduled 2022-10-04 [facility] Test 12:57:51 malignant neoplasm of colon (procedure) [code = 286851233] Future Scheduled 2022-10-04 [facility] Test 12:57:51 malignant neoplasm of colon (procedure) [code = 736790729] Future Scheduled 2022-10-04 Pneumococcal Vaccine: [facility] Test 12:57:51 Pediatrics (0 to 5 Years) and At-Risk Patients (6 to 64 Years) (1 - PCV) [code = Pneumococcal Vaccine: Pediatrics (0 to 5 Years) and At-Risk Patients (6 to 64 Years) (1 - PCV)] Future Scheduled 2022-10-04 Hepatitis C screening [facility] Test 12:57:51 (procedure) [code = 706531974] Future Scheduled 2022-10-04 Screening for [facility] Test 12:57:51 malignant neoplasm of cervix (procedure) [code = 751710705] Future Scheduled 2022-10-04 Screening for [facility] Test 12:57:51 malignant neoplasm of colon (procedure) [code = 623089601] Future Scheduled 2022-10-04 Screening for [facility] Test 12:57:51 malignant neoplasm of colon (procedure) [code = 801755015] Future Scheduled 2022-10-04 SHINGLES VACCINES (1 [facility] Test 12:57:51 of 2) [code = SHINGLES VACCINES (1 of 2)] Future Scheduled 2022-10-04 BREAST CANCER [facility] Test 12:57:51 SCREENING [code = BREAST CANCER SCREENING] Future Scheduled 2022-10-04 COVID-19 VACCINE (4 - [facility] Test 12:57:51 Moderna series) [code = COVID-19 VACCINE (4 - Moderna series)] Future Scheduled 2022-10-04 INFLUENZA VACCINE [facility] Test 12:57:51 [code = INFLUENZA VACCINE] Future Scheduled 2022-09-[address] [facility] Screening (12+)] Future Scheduled 2022-09-08 Screening for [facility] Test 07:17:24 malignant neoplasm of colon (procedure) [code = [id number]] Future Scheduled 2022-09-08 Screening for [facility] Test 07:17:24 malignant neoplasm of colon (procedure) [code = 039544034] Future Scheduled 2022-09-08 Screening for [facility] Test 07:17:24 malignant neoplasm of colon (procedure) [code = 609944665] Future Scheduled 2022-09-08 Pneumococcal Vaccine: [facility] Test 07:17:24 Pediatrics (0 to 5 Years) and At-Risk Patients (6 to 64 Years) (1 - PCV) [code = Pneumococcal Vaccine: Pediatrics (0 to 5 Years) and At-Risk Patients (6 to 64 Years) (1 - PCV)] Future Scheduled 2022-09-08 Hepatitis C screening [facility] Test 07:17:24 (procedure) [code = 357663110] Future Scheduled 2022-09-08 Screening for [facility] Test 07:17:24 malignant neoplasm of cervix (procedure) [code = 119415989] Future Scheduled 2022-09-08 Screening for [facility] Test 07:17:24 malignant neoplasm of colon (procedure) [code = 408723944] Future Scheduled 2022-09-08 Screening for [facility] Test 07:17:24 malignant neoplasm of colon (procedure) [code = 625059873] Future Scheduled 2022-09-08 SHINGLES VACCINES (1 [facility] Test 07:17:24 of 2) [code = SHINGLES VACCINES (1 of 2)] Future Scheduled 2022-09-08 BREAST CANCER [facility] Test 07:17:24 SCREENING [code = BREAST CANCER SCREENING] Future Scheduled 2022-09-08 COVID-19 VACCINE (4 - [facility] Test 07:17:24 Moderna series) [code = COVID-19 VACCINE (4 - Moderna series)] Future Scheduled 2022-09-08 INFLUENZA VACCINE [facility] Test 07:17:24 [code = INFLUENZA VACCINE] Future Scheduled 2022-09-08 Screening for [facility] Test 07:17:24 malignant neoplasm of colon (procedure) [code = 913774922] Future Scheduled 2022-09-08 Screening for [facility] Test 07:17:24 malignant neoplasm of colon (procedure) [code = 392781691] Future Scheduled 2022-09-08 Screening for [facility] Test 07:17:24 malignant neoplasm of colon (procedure) [code = 795771942] Future Scheduled 2022-09-08 Pneumococcal Vaccine: [facility] Test 07:17:24 Pediatrics (0 to 5 Years) and At-Risk Patients (6 to 64 Years) (1 - PCV) [code = Pneumococcal Vaccine: Pediatrics (0 to 5 Years) and At-Risk Patients (6 to 64 Years) (1 - PCV)] Future Scheduled 2022-09-08 Hepatitis C screening [facility] Test 07:17:24 (procedure) [code = 051699933] Future Scheduled 2022-09-08 Screening for [facility] Test 07:17:24 malignant neoplasm of cervix (procedure) [code = 726201333] Future Scheduled 2022-09-08 Screening for [facility] Test 07:17:24 malignant neoplasm of colon (procedure) [code = 110860440] Future Scheduled 2022-09-08 Screening for [facility] Test 07:17:24 malignant neoplasm of colon (procedure) [code = 721411149] Future Scheduled 2022-09-08 SHINGLES VACCINES (1 Met [facility] Test 07:17:24 of 2) [code = SHINGLES VACCINES (1 of 2)] Future Scheduled 2022-09-08 BREAST CANCER [facility] Test 07:17:24 SCREENING [code = BREAST CANCER SCREENING] Future Scheduled 2022-09-08 COVID-19 VACCINE (4 - [facility] Test 07:17:24 Moderna series) [code = COVID-19 VACCINE (4 - Moderna series)] Future Scheduled 2022-09-08 INFLUENZA VACCINE [facility] Test 07:17:24 [code = INFLUENZA VACCINE] Future Scheduled 2022-03-[address] [facility] Test 00:00:00 (12+) [code = Medical Center DEPRESSION SCREENING (12+)] Future Scheduled 2022-03-[address] [facility] Test 00:00:00 (12+) [code = Medical Center DEPRESSION SCREENING (12+)] Future Scheduled 2022-03-17 COVID-19 VACCINE (#1) [facility] Test 17:07:51 [code = COVID-19 VACCINE (#1)] Future Scheduled 2022-03-17 Pneumococcal Vaccine: [facility] Test 17:07:51 Pediatrics (0 to 5 Years) and At-Risk Patients (6 to 64 Years) (1 - PCV) [code = Pneumococcal Vaccine: Pediatrics (0 to 5 Years) and At-Risk Patients (6 to 64 Years) (1 - PCV)] Future Scheduled 2022-03-17 Hepatitis C screening [facility] Test 17:07:51 (procedure) [code = 763882160] Future Scheduled 2022-03-17 SHINGLES VACCINES (1 Met [facility] Test 17:07:51 of 2) [code = SHINGLES VACCINES (1 of 2)] Future Scheduled 2022-03-17 Screening for [facility] Test 17:07:51 malignant neoplasm of cervix (procedure) [code = 299963660] Future Scheduled 2022-03-17 BREAST CANCER [facility] Test 17:07:51 SCREENING [code = BREAST CANCER SCREENING] Future Scheduled 2022-03-17 COLONOSCOPY SCREENING [facility] Test 17:07:51 [code = COLONOSCOPY SCREENING] Future Scheduled 2022-03-17 INFLUENZA VACCINE Method [facility] Test 17:07:51 [code = INFLUENZA VACCINE] Future Scheduled 2022-02-13 COLONOSCOPY SCREENING [facility] Test 15:03:07 [code = COLONOSCOPY SCREENING] Future Scheduled 2022-02-13 INFLUENZA VACCINE Method [facility] Test 15:03:07 [code = INFLUENZA VACCINE] Future Scheduled 2022-02-13 HEPATITIS B VACCINES [facility] Test 15:03:07 (1 of 3 - 3-dose series) [code = HEPATITIS B VACCINES (1 of 3 - 3-dose series)] Future Scheduled 2022-02-13 COVID-19 VACCINE (#1) [facility] Test 15:03:07 [code = COVID-19 VACCINE (#1)] Future Scheduled 2022-02-13 Pneumococcal Vaccine: [facility] Test 15:03:07 Pediatrics (0 to 5 Years) and At-Risk Patients (6 to 64 Years) (1 - PCV) [code = Pneumococcal Vaccine: Pediatrics (0 to 5 Years) and At-Risk Patients (6 to 64 Years) (1 - PCV)] Future Scheduled 2022-02-13 Hepatitis C screening [facility] Test 15:03:07 (procedure) [code = 464741880] Future Scheduled 2022-02-13 SHINGLES VACCINES (1 [facility] Test 15:03:07 of 2) [code = SHINGLES VACCINES (1 of 2)] Future Scheduled 2022-02-13 Screening for [facility] Test 15:03:07 malignant neoplasm of cervix (procedure) [code = 100558639] Future Scheduled 2022-02-13 BREAST CANCER [facility] Test 15:03:07 SCREENING [code = BREAST CANCER SCREENING] Future Scheduled 2022-02-[address] [facility] (procedure) [code = 94033780] Future Scheduled 2022-02-[address] [facility] (procedure) [code = 42737490] Future Scheduled 2022-02-[address] [facility] (procedure) [code = 80675636] Future Scheduled 2022-02-[address] [facility] (procedure) [code = 99115576] Future Scheduled 2022-02-[address] [facility] (procedure) [code = 97338978] Future Scheduled 2022-02-[address] [facility] 00[facility] (procedure) [code = 00147877] Future Scheduled 2022-02-[address] [facility] 00[facility] (procedure) [code = 22080818] Future Scheduled 2022-02-06 HEPATITIS B VACCINES [facility] Test 08:04:10 (1 of 3 - 3-dose series) [code = HEPATITIS B VACCINES (1 of 3 - 3-dose series)] Future Scheduled 2022-02-06 COVID-19 VACCINE (#1) [facility] Test 08:04:10 [code = COVID-19 VACCINE (#1)] Future Scheduled 2022-02-06 Pneumococcal Vaccine: [facility] Test 08:04:10 Pediatrics (0 to 5 Years) and At-Risk Patients (6 to 64 Years) (1 - PCV) [code = Pneumococcal Vaccine: Pediatrics (0 to 5 Years) and At-Risk Patients (6 to 64 Years) (1 - PCV)] Future Scheduled 2022-02-06 Hepatitis C screening [facility] Test 08:04:10 (procedure) [code = 561277124] Future Scheduled 2022-02-06 SHINGLES [facility]ACCINES (1 [facility] 08:04:10 of 2) [code = SHINGLES VACCINES (1 of 2)] Future Scheduled 2022-02-06 Screening for [facility] Test 08:04:10 malignant neoplasm of cervix (procedure) [code = 324286041] Future Scheduled 2022-02-06 BREAST CANCER [facility] Test 08:04:10 SCREENING [code = BREAST CANCER SCREENING] Future Scheduled 2022-02-06 COLONOSCOPY SCREENING [facility] Test 08:04:10 [code = COLONOSCOPY SCREENING] Future Scheduled 2022-02-06 [facility]:04:10 [code = INFLUENZA VACCINE] [...] Scheduled 2021-10-13 COVID-19 VACCINE (#1) [facility] Test 06:56:00 [code = COVID-19 VACCINE (#1)] Future Scheduled 2021-10-13 Pneumococcal Vaccine: [facility] Test 06:56:00 Pediatrics (0 to 5 Years) and At-Risk Patients (6 to 64 Years) (1 - PCV) [code = Pneumococcal Vaccine: Pediatrics (0 to 5 Years) and At-Risk Patients (6 to 64 Years) (1 - PCV)] Future Scheduled 2021-10-13 Hepatitis C screening [facility] Test 06:56:00 (procedure) [code = 928947333] Future Scheduled 2021-10-13 SHINGLES VACCINES (1 [facility] Test 06:56:00 of 2) [code = SHINGLES VACCINES (1 of 2)] Future Scheduled 2021-10-13 Screening for [facility] Test 06:56:00 malignant neoplasm of cervix (procedure) [code = 415481348] Future Scheduled 2021-10-13 BREAST CANCER [facility] Test 06:56:00 SCREENING [code = BREAST CANCER SCREENING] Future Scheduled 2021-10-13 COLONOSCOPY SCREENING [facility] Test 06:56:00 [code = COLONOSCOPY SCREENING] Future Scheduled 2021-10-13 INFLUENZA VACCINE [facility] Test 06:56:00 [code = INFLUENZA VACCINE] Future Scheduled 2021-09-21 COVID-19 VACCINE (1) [facility] Test 10:27:20 [code = COVID-19 VACCINE (1)] Future Scheduled 2021-09-21 Pneumococcal Vaccine: [facility] Test 10:27:20 Pediatrics (0 to 5 Years) and At-Risk Patients (6 to 64 Years) (1 - PCV) [code = Pneumococcal Vaccine: Pediatrics (0 to 5 Years) and At-Risk Patients (6 to 64 Years) (1 - PCV)] Future Scheduled 2021-09-21 Hepatitis C screening [facility] Test 10:27:20 (procedure) [code = 077273019] Future Scheduled 2021-09-21 SHINGLES VACCINES (1 [facility] Test 10:27:20 of 2) [code = SHINGLES VACCINES (1 of 2)] Future Scheduled 2021-09-21 Screening for [facility] Test 10:27:20 malignant neoplasm of cervix (procedure) [code = 703401528] Future Scheduled 2021-09-21 BREAST CANCER [facility] Test 10:27:20 SCREENING [code = BREAST CANCER SCREENING] Future Scheduled 2021-09-21 COLONOSCOPY SCREENING [facility] Test 10:27:20 [code = COLONOSCOPY SCREENING] Future Scheduled 2021-09-21 INFLUENZA VACCINE Method [facility] Test 10:27:20 [code = INFLUENZA VACCINE] Future Scheduled 2021-08-25 COVID-19 VACCINE (1) [facility] Test 09:02:31 [code = COVID-19 VACCINE (1)] Future Scheduled 2021-08-25 Pneumococcal Vaccine: [facility] Test 09:02:31 Pediatrics (0 to 5 Years) and At-Risk Patients (6 to 64 Years) (1 - PCV) [code = Pneumococcal Vaccine: Pediatrics (0 to 5 Years) and At-Risk Patients (6 to 64 Years) (1 - PCV)] Future Scheduled 2021-08-25 Hepatitis C screening [facility] Test 09:02:31 (procedure) [code = 615508350] Future Scheduled 2021-08-25 SHINGLES VACCINES (1 [facility] Test 09:02:31 of 2) [code = SHINGLES VACCINES (1 of 2)] Future Scheduled 2021-08-25 Screening for [facility] Test 09:02:31 malignant neoplasm of cervix (procedure) [code = 749957149] Future Scheduled 2021-08-25 Pneumococcal Vaccine: [facility] Test 09:02:31 Pediatrics (0 to 5 Years) and At-Risk Patients (6 to 64 Years) (1 - PCV) [code = Pneumococcal Vaccine: Pediatrics (0 to 5 Years) and At-Risk Patients (6 to 64 Years) (1 - PCV)] Future Scheduled 2021-08-25 BREAST CANCER [facility] Test 09:02:31 SCREENING [code = BREAST CANCER SCREENING] Future Scheduled 2021-08-25 COLONOSCOPY SCREENING [facility] Test 09:02:31 [code = COLONOSCOPY SCREENING] Future Scheduled 2021-08-25 INFLUENZA VACCINE [facility] Test 09:02:31 [code = INFLUENZA VACCINE] Future Scheduled 2021-08-25 COVID-19 VACCINE (1) [facility] Test 09:02:31 [code = COVID-19 VACCINE (1)] Future Scheduled 2021-08-25 Pneumococcal Vaccine: [facility] Test 09:02:31 Pediatrics (0 to 5 Years) and At-Risk Patients (6 to 64 Years) (1 - PCV) [code = Pneumococcal Vaccine: Pediatrics (0 to 5 Years) and At-Risk Patients (6 to 64 Years) (1 - PCV)] Future Scheduled 2021-08-25 Hepatitis C screening [facility] Test 09:02:31 (procedure) [code = 858753659] Future Scheduled 2021-08-25 SHINGLES VACCINES (1 [facility] Test 09:02:31 of 2) [code = SHINGLES VACCINES (1 of 2)] Future Scheduled 2021-08-25 Screening for [facility] Test 09:02:31 malignant neoplasm of cervix (procedure) [code = 232910748] Future Scheduled 2021-08-25 BREAST CANCER [facility] Test 09:02:31 SCREENING [code = BREAST CANCER SCREENING] Future Scheduled 2021-08-25 COLONOSCOPY SCREENING [facility] Test 09:02:31 [code = COLONOSCOPY SCREENING] Future Scheduled 2021-08-25 Hepatitis C screening [facility] Test 09:02:31 (procedure) [code = 075604724] Future Scheduled 2021-08-25 INFLUENZA VACCINE Method [facility] Test 09:02:31 [code = INFLUENZA VACCINE] Future Scheduled 2021-08-25 COVID-19 VACCINE (1) [facility] Test 09:02:31 [code = COVID-19 VACCINE (1)] Future Scheduled 2021-08-25 Pneumococcal Vaccine: [facility] Test 09:02:31 Pediatrics (0 to 5 Years) and At-Risk Patients (6 to 64 Years) (1 - PCV) [code = Pneumococcal Vaccine: Pediatrics (0 to 5 Years) and At-Risk Patients (6 to 64 Years) (1 - PCV)] Future Scheduled 2021-08-25 Hepatitis C screening [facility] Test 09:02:31 (procedure) [code = 249386872] Future Scheduled 2021-08-25 SHINGLES VACCINES (1 [facility] Test 09:02:31 of 2) [code = SHINGLES VACCINES (1 of 2)] Future Scheduled 2021-08-25 Screening for [facility] Test 09:02:31 malignant neoplasm of cervix (procedure) [code = 642799966] Future Scheduled 2021-08-25 BREAST CANCER [facility] Test 09:02:31 SCREENING [code = BREAST CANCER SCREENING] Future Scheduled 2021-08-25 COLONOSCOPY SCREENING [facility] Test 09:02:31 [code = COLONOSCOPY SCREENING] Future Scheduled 2021-08-25 INFLUENZA VACCINE Method [facility] Test 09:02:31 [code = INFLUENZA VACCINE] Future Scheduled 2021-08-25 COVID-19 VACCINE (1) [facility] Test 09:02:31 [code = COVID-19 VACCINE (1)] Future Scheduled 2021-08-25 SHINGLES VACCINES (1 [facility] Test 09:02:31 of 2) [code = SHINGLES VACCINES (1 of 2)] Future Scheduled 2021-08-25 Pneumococcal Vaccine: [facility] Test 09:02:31 Pediatrics (0 to 5 Years) and At-Risk Patients (6 to 64 Years) (1 - PCV) [code = Pneumococcal Vaccine: Pediatrics (0 to 5 Years) and At-Risk Patients (6 to 64 Years) (1 - PCV)] Future Scheduled 2021-08-25 Hepatitis C screening [facility] Test 09:02:31 (procedure) [code = 582992854] Future Scheduled 2021-08-25 SHINGLES VACCINES (1 [facility] Test 09:02:31 of 2) [code = SHINGLES VACCINES (1 of 2)] Future Scheduled 2021-08-25 Screening for [facility] Test 09:02:31 malignant neoplasm of cervix (procedure) [code = 087301423] Future Scheduled 2021-08-25 BREAST CANCER [facility] Test 09:02:31 SCREENING [code = BREAST CANCER SCREENING] Future Scheduled 2021-08-25 COLONOSCOPY SCREENING [facility] Test 09:02:31 [code = COLONOSCOPY SCREENING] Future Scheduled 2021-08-25 INFLUENZA VACCINE [facility] Test 09:02:31 [code = INFLUENZA VACCINE] Future Scheduled 2021-08-25 Screening for [facility] Test 09:02:31 malignant neoplasm of cervix (procedure) [code = 872726712] Future Scheduled 2021-08-25 BREAST CANCER [facility] Test 09:02:31 SCREENING [code = BREAST CANCER SCREENING] Future Scheduled 2021-08-25 COLONOSCOPY SCREENING [facility] Test 09:02:31 [code = COLONOSCOPY SCREENING] Future Scheduled 2021-08-25 INFLUENZA VACCINE [facility] Test 09:02:31 [code = INFLUENZA VACCINE] Future Scheduled 2021-08-25 COVID-19 VACCINE (1) [facility] Test 09:02:31 [code = COVID-19 VACCINE (1)] Future Scheduled 2021-08-25 Pneumococcal Vaccine: [facility] Test 09:02:31 Pediatrics (0 to 5 Years) and At-Risk Patients (6 to 64 Years) (1 - PCV) [code = Pneumococcal Vaccine: Pediatrics (0 to 5 Years) and At-Risk Patients (6 to 64 Years) (1 - PCV)] Future Scheduled 2021-08-25 Hepatitis C screening [facility] Test 09:02:31 (procedure) [code = 866358849] Future Scheduled 2021-08-25 SHINGLES VACCINES (1 [facility] Test 09:02:31 of 2) [code = SHINGLES VACCINES (1 of 2)] Future Scheduled 2021-08-25 Screening for [facility] Test 09:02:31 malignant neoplasm of cervix (procedure) [code = 017073219] Future Scheduled 2021-08-25 BREAST CANCER [facility] Test 09:02:31 SCREENING [code = BREAST CANCER SCREENING] Future Scheduled 2021-08-25 COLONOSCOPY SCREENING [facility] Test 09:02:31 [code = COLONOSCOPY SCREENING] Future Scheduled 2021-08-25 INFLUENZA VACCINE Method [facility] Test 09:02:31 [code = INFLUENZA VACCINE] Future Scheduled 2021-08-25 COVID-19 VACCINE (1) [facility] Test 09:02:31 [code = COVID-19 VACCINE (1)] Future Scheduled 2021-08-25 Pneumococcal Vaccine: [facility] Test 09:02:31 Pediatrics (0 to 5 Years) and At-Risk Patients (6 to 64 Years) (1 - PCV) [code = Pneumococcal Vaccine: Pediatrics (0 to 5 Years) and At-Risk Patients (6 to 64 Years) (1 - PCV)] Future Scheduled 2021-08-25 Hepatitis C screening [facility] Test 09:02:31 (procedure) [code = 558924918] Future Scheduled 2021-08-25 SHINGLES VACCINES (1 [facility] Test 09:02:31 of 2) [code = SHINGLES VACCINES (1 of 2)] Future Scheduled 2021-08-25 Screening for [facility] Test 09:02:31 malignant neoplasm of cervix (procedure) [code = 262700123] Future Scheduled 2021-08-25 BREAST CANCER [facility] Test 09:02:31 SCREENING [code = BREAST CANCER SCREENING] Future Scheduled 2021-08-25 COLONOSCOPY SCREENING [facility] Test 09:02:31 [code = COLONOSCOPY SCREENING] Future Scheduled 2021-08-25 INFLUENZA VACCINE Method [facility] Test 09:02:31 [code = INFLUENZA VACCINE] Future Scheduled 2021-08-25 COVID-19 VACCINE (1) [facility] Test 09:02:31 [code = COVID-19 VACCINE (1)] Future Scheduled 2021-08-25 Pneumococcal Vaccine: [facility] Test 09:02:31 Pediatrics (0 to 5 Years) and At-Risk Patients (6 to 64 Years) (1 - PCV) [code = Pneumococcal Vaccine: Pediatrics (0 to 5 Years) and At-Risk Patients (6 to 64 Years) (1 - PCV)] Future Scheduled 2021-08-25 Hepatitis C screening [facility] Test 09:02:31 (procedure) [code = 266431377] Future Scheduled 2021-08-25 COVID-19 VACCINE (1) [facility] Test 09:02:31 [code = COVID-19 VACCINE (1)] Future Scheduled 2021-08-25 SHINGLES VACCINES (1 [facility] Test 09:02:31 of 2) [code = SHINGLES VACCINES (1 of 2)] Future Scheduled 2021-08-25 Screening for [facility] Test 09:02:31 malignant neoplasm of cervix (procedure) [code = 202663306] Future Scheduled 2021-08-25 BREAST CANCER [facility] Test 09:02:31 SCREENING [code = BREAST CANCER SCREENING] Future Scheduled 2021-08-25 COLONOSCOPY SCREENING [facility] Test 09:02:31 [code = COLONOSCOPY SCREENING] Future Scheduled 2021-08-25 INFLUENZA VACCINE [facility] Test 09:02:31 [code = INFLUENZA VACCINE] Future Scheduled 2021-03-27 [facility]procedure[facility] [code = 785152618] Future Scheduled 2020-11-[address] [facility] 00:[facility] (procedure) [code = 312722329] Future Scheduled 2020-11-[address] [facility] 00:00:00 [facility] (procedure) [code = 783994156] Future Scheduled 2020-11-[address] [facility] 00:00:00 [facility] (procedure) [code = 188271153] Future Scheduled 2020-11-[address] [facility] Test 00:00:00 [facility] (procedure) [code = 743266037] Future Scheduled 2020-11-[address] [facility] Test 00:00:00 malignant neoplasm of [facility] breast (procedure) [code = 515192562] Future Scheduled 2020-11-[address] [facility] Test 00:00:00 malignant neoplasm of [facility] breast (procedure) [code = 869990324] Future Scheduled 2020-06-23 Screening for [facility] Test 00:00:00 malignant neoplasm of cervix (procedure) [code = 518381553] Future Scheduled 2020-06-23 Screening for [facility] Test 00:00:00 malignant neoplasm of cervix (procedure) [code = 567344996] Future Scheduled 2020-06-23 Screening for [facility] Test 00:00:00 malignant neoplasm of cervix (procedure) [code = 363372372] Future Scheduled 2020-06-23 Screening for [facility] Test 00:00:00 malignant neoplasm of cervix (procedure) [code = 423002671] Future Scheduled 2020-06-23 Screening for [facility] Test 00:00:00 malignant neoplasm of cervix (procedure) [code = 507262053] Future Scheduled 2020-06-23 Screening for [facility] Test 00:00:00 malignant neoplasm of cervix (procedure) [code = 889747225] Future Scheduled 2020-06-23 Screening for [facility] Test 00:00:00 malignant neoplasm of cervix (procedure) [code = 926421279] Future Scheduled 2020-06-23 Screening for [facility] Test 00:00:00 malignant neoplasm of cervix (procedure) [code = 390155904] Future Scheduled 2020-06-23 Screening for [facility] Test 00:00:00 malignant neoplasm of cervix (procedure) [code = 914521403] Future Scheduled 2020-06-23 Screening for [facility] Test 00:00:00 malignant neoplasm of cervix (procedure) [code = 862266008] Future Scheduled 2020-06-23 Screening for [facility] Test 00:00:00 malignant neoplasm of cervix (procedure) [code = 938537341] Future Scheduled 2020-06-23 Screening for [facility] Test 00:00:00 malignant neoplasm of cervix (procedure) [code = 021357109] Future Scheduled 2020-06-23 [facility] 00:[facility]:00 malignant neoplasm of cervix (procedure) [code = 060495553] Future Scheduled 2020-06-23 [facility] 00:00:00 malignant neoplasm of cervix (procedure) [code = 902248571] Future Scheduled 2020-06-23 [facility] 00:00:00 malignant neoplasm of cervix (procedure) [code = 650816107] Future Scheduled 2020-06-23 [facility] 00:00:00 malignant neoplasm of cervix (procedure) [code = 953603141] Future Scheduled 2019-03-[address] [facility] (procedure) [code = 880340714] Future Scheduled 2019-03-[address] [facility] 00:00:00 malignant [facility] (procedure) [code = 478097270] Future Scheduled 2019-03-[address] [facility] 00[facility]00:00 malignant [facility] (procedure) [code = 193616179] Future Scheduled 2019-03-[address] [facility] 00:00:00 malignant [facility] (procedure) [code = 332719310] Future Scheduled 2019-03-[address] [facility] 00:00:00 [facility] (procedure) [code = 394294805] Future Scheduled 2019-03-[address] [facility] 00:00:00 malignant [facility] (procedure) [code = 142854552] Future Scheduled 2019-03-[address] [facility] 00:00:00 [facility] (procedure) [code = 564166310] Future Scheduled 2019-03-[address] [facility] 00:00:00 malignant [facility] (procedure) [code = 666290712] Future Scheduled 2019-03-[address] [facility] 00:00:00 malignant [facility] (procedure) [code = 909378015] Future Scheduled 2019-03-[address] [facility] 00:00:00 malignant neoplasm of [facility] colon (procedure) [code = 816465542] Future Scheduled 2019-03-[address] [facility] 00:00:00 malignant neoplasm of [facility] colon (procedure) [code = 112288306] Future Scheduled 2018-11-[address] [...] malignant neoplasm of colon (procedure) [code = 215973638] Future Scheduled 2017-04-21 [facility] 00:00:00 malignant neoplasm of colon (procedure) [code = 124212966] Future Scheduled 2017-04-21 [facility] 00:00:00 malignant neoplasm of colon (procedure) [code = 697522768] Future Scheduled 2017-04-21 [facility] 00:00:00 malignant neoplasm of colon (procedure) [code = 196581237] Future Scheduled 2017-04-21 [facility] 00:00:00 malignant neoplasm of colon (procedure) [code = 815234301] Future Scheduled 2017-04-21 [facility] 00:00:00 malignant neoplasm of colon (procedure) [code = 807726139] Future Scheduled 2017-04-21 [facility] 00:00:00 malignant neoplasm of colon (procedure) [code = 428543986] Future Scheduled 2017-04-21 [facility] 00:00:00 malignant neoplasm of colon (procedure) [code = 704351371] Future Scheduled 2017-04-21 [facility] 00:00:00 malignant neoplasm of colon (procedure) [code = 050763103] Future Scheduled 2017-04-21 [facility] 00:00:00 malignant neoplasm of colon (procedure) [code = 379310988] Future Scheduled 2017-04-21 [facility] 00:00:00 malignant neoplasm of colon (procedure) [code = 379601114] Future Scheduled 2017-04-21 [facility] 00:00:00 malignant neoplasm of colon (procedure) [code = 354784420] Future Scheduled 2017-04-21 [facility]ening [facility] 00:00:00 malignant neoplasm of colon (procedure) [code = 990958080] Future Scheduled 2017-04-21 [facility] 00:00:00 malignant neoplasm of colon (procedure) [code = 921577299] Future Scheduled 2017-04-21 [facility] 00:00:00 malignant neoplasm of colon (procedure) [code = 266518128] Future Scheduled 2017-04-21 [facility] 00:00:00 malignant neoplasm of colon (procedure) [code = 308091373] Future Scheduled 2016-01-[address] [facility] [...] if available, else PCV20)] Future Scheduled 2015-03-11 Pneumococcal Vaccine: [facility] [...] malignant neoplasm of cervix (procedure) [code = 793288025] Future Scheduled 1993 Scre[facility] for [facility] 00:00:00 malignant neoplasm of cervix (procedure) [code = 546537680] Future Scheduled 1993 Screening for [facility] 00:00:00 malignant neoplasm of cervix (procedure) [code = 130428605] Future Scheduled 1993 Screening for [facility] 00:00:00 malignant neoplasm of cervix (procedure) [code = 379563058] Future Scheduled 1993 Scre[facility] for [facility] 00:00:00 malignant neoplasm of cervix (procedure) [code = 861926984] Future Scheduled 1993 Scre[facility] for [facility] 00:00:00 malignant neoplasm of cervix (procedure) [code = 825238756] Future Scheduled 1993 Scre[facility] for [facility] 00:00:00 malignant neoplasm of cervix (procedure) [code = 653932105] Future Scheduled 1993 Screening for [facility] 00:00:00 malignant neoplasm of cervix (procedure) [code = 932996656] Future Scheduled 1993 Screening for [facility] 00:00:00 malignant neoplasm of cervix (procedure) [code = 404493601] Future Scheduled 1993 Screening for [facility] 00:00:00 malignant neoplasm of cervix (procedure) [code = 338455416] Future Scheduled 1993 Scre[facility] for [facility] 00:00:00 malignant neoplasm of cervix (procedure) [code = 899330802] Future Scheduled 1993 Screening for [facility] 00:00:00 malignant neoplasm of cervix (procedure) [code = 034830270] Future Scheduled 1993 Screening for [facility] 00:00:00 malignant neoplasm of cervix (procedure) [code = 009704997] Future Scheduled 1993 Screening for [facility] 00:00:00 malignant neoplasm of cervix (procedure) [code = 761271343] Future Scheduled 1993 Screening for [facility] 00:00:00 malignant neoplasm of cervix (procedure) [code = 880332323] Future Scheduled 1993 [facility] for [facility] 00:00:00 malignant neoplasm of cervix (procedure) [code = 103956126] Future Scheduled [address] [facility] 00:00:00 malignant [facility] cervix (procedure) [code = 735901916] Future Scheduled [address] [facility] 00:00:00 malignant [facility] of [facility] cervix (procedure) [code = 088730781] Future Scheduled [address] [facility] 00:00:00 malignant [facility] of [facility] cervix (procedure) [code = 541644391] Future Scheduled [address] [facility] 00:00:00 malignant [facility] of [facility] cervix (procedure) [code = 564664116] Future Scheduled [address] [facility] 00:00:00 malignant [facility] of [facility] cervix (procedure) [code = 283556957] Future Scheduled [address] [facility] 00:00:00 malignant [facility] of [facility] cervix (procedure) [code = 109547799] Future Scheduled [address] [facility] 00:00:00 malignant [facility] of [facility] cervix (procedure) [code = 112022075] Future Scheduled 1982 DTAP/TDAP/TD VACCINES [facility] [...] 00:00:00 examination Medical Center (regime/therapy) [code = 093121109] Future Scheduled 1973 Urine screening for [facility] 00:00:00 protein (procedure) Medical Center [code = 902109433] Future Scheduled 1973 DIAB[address] EYE EXAM [facility] 00:00:00 [code = DIABETIC EYE Medical Center EXAM] Future Scheduled [address] [facility] 00:[facility]:00 examination Medical Center (regime/therapy) [code = 850955390] Future Scheduled 1973 Urine screening for [facility] 00:00:00 protein (procedure) Medical Center [code = 880191213] Future Scheduled 1973 DIAB[address] EYE EXAM [facility] 00:00:00 [code = DIABETIC EYE Medical Center EXAM] Future Scheduled [address] [facility] 00:[facility]:00 examination Medical Center (regime/therapy) [code = 972223439] Future Scheduled 1973 Urine screening for [facility] 00:00:00 protein (procedure) [facility] Center [code = 396984568] Future Scheduled [address] DIAB[address] EYE EXAM [facility] 00:00:00 [code = DIABETIC EYE Medical Center EXAM] Future Scheduled [address] [facility] 00:00:00 examination Medical Center (regime/therapy) [code = 003769243] Future Scheduled 1973 Urine screening for [facility] 00:00:00 protein (procedure) Medical Center [code = 642162656] Future Scheduled [address] DIAB[address] EYE EXAM [facility] 00:00:00 [code = DIABETIC EYE Medical Center EXAM] Future Scheduled [address] [facility] 00:00:00 examination Medical Center (regime/therapy) [code = 517081643] Future Scheduled 1973 Urine screening for [facility] 00:00:00 protein (procedure) Medical Center [code = 089465670] Future Scheduled [address] DIAB[address] EYE EXAM [facility] 00:00:00 [code = DIABETIC EYE Medical Center EXAM] Future Scheduled [address] [facility] 00:00:00 examination Medical Center (regime/therapy) [code = 241028207] Future Scheduled 1973 Urine screening for [facility] 00:00:00 protein (procedure) Medical Center [code = 579859247] Future Scheduled [address] EYE EXAM [facility] 00:00:00 [code = DIABETIC EYE Medical Center EXAM] Future Scheduled [address] [facility] 00:00:00 examination Medical Center (regime/therapy) [code = 598403377] Future Scheduled 1973 Urine screening for [facility] 00:00:00 protein (procedure) Medical Center [code = 555384246] Future Scheduled 1968 COVID-19 Vaccine (#1) Vizcaino [...] = COVID-19 Vaccine (#1)] Future Scheduled 1963 Fluoride Varnish [facility] = Fluoride Varnish] Future Scheduled [address] [facility] 00:[facility]:00 (combo) [code = CT Medical C enter Colonography (combo)] Future Scheduled [address] [facility] 00:00:00 malignant neoplasm of [facility] colon (procedure) [code = 698300012] Future Scheduled 1963 [facility]oidoscopy [facility] Future Scheduled [address] [facility] 00:00:00 (combo) [code = CT Medical C enter Colonography (combo)] Future Scheduled [address] [facility] 00:00:00 malignant neoplasm of [facility] colon (procedure) [code = 401305762] Future Scheduled 1963 [facility]oidoscopy [facility] Future Scheduled [address] [facility] 00:00:00 (combo) [code = CT Medical C enter Colonography (combo)] Future Scheduled [address] [facility] 00:00:00 malignant neoplasm of [facility] colon (procedure) [code = 331430135] Future Scheduled 1963 [facility]oscopy [facility] Cent[facility] Future Scheduled [address] [facility] 00:00:00 (combo) [code = CT Medical C enter Colonography (combo)] Future Scheduled [address] [facility] 00:00:00 malignant neoplasm of [facility] colon (procedure) [code = 854617035] Future Scheduled [address] [facility] 00:00:00 malignant neoplasm of [facility] colon (procedure) [code = 135756316] Future Scheduled 1963 [facility] Cent[facility] r Future Scheduled [address] [facility] 00:00:00 (combo) [code = CT Medical C enter Colonography (combo)] Future Scheduled [address] [facility] 00[facility]00:00 malignant neoplasm of [facility] colon (procedure) [code = 843652360] Future Scheduled [address] [facility] 00:00:00 malignant neoplasm of [facility] colon (procedure) [code = 246242571] Future Scheduled 1963 [facility]oscopy [facility] Cent[facility] Future Scheduled [address] [facility] 00:00:00 (combo) [code = CT Medical C enter Colonography (combo)] Future Scheduled [address] [facility] 00:00:00 malignant neoplasm of [facility] colon (procedure) [code = 844421263] Future Scheduled [address] [facility] 00:00:00 malignant neoplasm of [facility] colon (procedure) [code = 268501984] Future Scheduled 1963 [facility]oscopy [facility] Cent[facility] Future Scheduled [address] [facility] 00:00:00 (combo) [code = CT Medical C enter Colonography (combo)] Future Scheduled [address] [facility] 00:00:00 malignant neoplasm of [facility] colon (procedure) [code = 646351248] Future Scheduled [address] [facility] 00:00:00 malignant neoplasm of [facility] colon (procedure) [code = 657066158] Future Scheduled 1963 [facility]oidoscopy [facility] Start End Encounter Admission Attending Care Care Encounter Source Date/Time Date/Time Type Type Clinicians Facility Department ID 2022-10-05 Inpatient ER NEASON, [facility] SLE [id number] [facility] 07:28:42 [facility] 2022-10-04 Inpatient ER NEASON, [facility] SLE [id number] [facility] 12:57:40 [facility] 2022-09-30 Inpatient ER NEASON, SLE SLE [id number] [facility] 17:44:09 [facility] 2022-09-30 Inpatient ER NEASON, [facility] SLE [id number] [facility] 14:55:43 [facility] 2022-09-25 Outpatient [facility] [id number] [place] 14:43:54 [id number] [facility] 2022-06-14 Emergency HFD HFD [id number] DINESH - 11:52:36 [facility] ent 2022-05-31 Outpatient [facility] [id number] [place] 11:48:15 11041 [facility] 2022-03-18 Outpatient 3 [facility] ENCPL CVA [id number] [facility] 06:12:06 hez, 1224 [facility] [place] 2022-03-02 Inpatient 3 [facility] ENCPL CVA [id number] [facility] 13:25:00 hez, 1208 [facility] [place] 2022-03-01 Outpatient 3 [id number] ENCPL REF [id number] [facility] 11:34:45 1207 [facility] [place] 2022-02-15 Outpatient 3 [id number] ENCPL REF [id number] [facility] 15:07:48 1123 [facility] [place] 2022-02-13 Outpatient [facility] [id number] [place] 15:10:15 [facility] 2022-01-31 Outpatient [facility] [id number] [place] 10:40:55 [id number] [facility] 2022-01-26 Outpatient [facility] [id number] [place] 16:42:22 35304 [facility] 2021-12-06 Outpatient 3 [facility] ENCPL CVA [id number] [facility] 13:41:36 hez, 0913 [facility] [place] 2021-12-02 Outpatient 3 [id number] ENCPL CVA [id number] [facility] 11:23:23 0909 [facility] [place] 2021-11-30 Outpatient 3 [id number] ENCPL CVA [id number] [facility] 08:22:36 0907 [facility] [place] 2021-11-29 Outpatient 3 [id number] ENCPL REF [id number] [facility] 14:03:26 0906 [facility] [place] 2021-09-05 Outpatient EL PALLISTER, [facility] Surgery [id number] SLE 08:47:40 RIAZ 2021-08-30 Outpatient 3 [id number] ENCSL [place] [id number] [facility] 17:17:47 [facility] [place] 2021-08-15 Outpatient 3 [id number] ENCSL REF [id number] [facility] 11:40:53 [facility] [place] 2021-04-22 Outpatient ANANTH [facility] [id number] [place] 15:16:49 [facility] 2021-04-20 Outpatient Rey, STLMLC STLMLC [id number] Common 12:32:19 Jose 07678 [facility] 2021-04-20 Outpatient Rey, STLMLC STLMLC [id number] Common 12:22:07 Jose 87430 [facility] 2021-04-20 Outpatient Rey, STLMLC STLMLC [id number] Common 12:18:27 Jose 83054 [facility] 2021-04-20 Outpatient Rey, STLMLC STLMLC [id number] Common 12:05:36 Jose 45941 [facility] 2021-04-20 Outpatient Rey, STLMLC STLMLC [id number] Common 11:56:16 Jose 12474 [facility] 2021-04-20 Outpatient Rey, STLMLC STLMLC [id number] Common 11:53:33 Jose 77746 [facility] 2021-04-20 Outpatient Rey, STLMLC STLMLC [id number] Common 11:48:09 Jose 16290 [facility] 2021-04-20 Outpatient Rey, STLMLC STLMLC [id number] Common 11:46:26 Jose 93662 [facility] 2021-04-20 Outpatient Rey, STLMLC STLMLC [id number] Common 11:42:27 Jose 39367 [facility] 2021-04-20 Outpatient Rey, STLMLC STLMLC [id number] Common 11:40:16 Jose 88702 [facility] 2021-04-20 Outpatient Rey, STLMLC STLMLC [id number] Common 11:38:56 Jose 47453 [facility] 2021-04-20 Outpatient Rey, STLMLC STLMLC [id number] Common 11:17:01 Jose 40902 [facility] 2021-04-20 Outpatient Rey, STLMLC STLMLC [id number] Common 11:16:49 Jose 53929 [facility] 2021-04-20 Outpatient Rey, STLMLC STLC [id number] Common 11:14:02 [facility] 20319 [facility] 2021-01-01 Inpatient UR ISAAC MEEHAN [facility] [id number] [facility] 20:20:01 Med 2022-09-29 2022-10-11 Inpatient ER ETHAN MORALES [facility] Neurology [id number] [facility] 21:03:00 17:20:00 2022-07-15 2022-07-15 Emergency [facility] [id number] Memoria 16:38:00 21:14:[address] 2022-07-15 2022-07-15 Emergency [facility] [id number] Memoria 16:38:00 21:14:[address] 2022-07-15 2022-07-15 Emergency [facility] [id number] Memoria 16:38:00 21:14:[address] 2022-07-15 2022-07-15 Emergency E FADOWOLE, MHBL MHBL [id number] MHBL 11:38:00 16:14:00 KASEY 2022-07-15 2022-07-15 Outpatient Fadowole, MHPL MHPL [id number] 11:38:00 16:14:00 Kasey 01 [facility] 2022-07-15 2022-07-15 Outpatient Fadowole, MHPL MHPL [id number] 11:38:00 16:14:00 Kasey 01 [facility] 2022-06-14 2022-06-15 Emergency Pradeep Bermeo 1.2.840.1 [id number] Methodi 11:40:00 19:30:00 [address] 3.430.2.7 Hospit a .3.558381 l .8 2022-06-14 2022-06-15 Emergency Pradeep Bermeo 1.2.840.1 [id number] Methodi 11:40:00 19:30:00 Gail [address]hat [address] 3.430.2.7 Hospit a .3.909048 l .8 2022-06-14 2022-06-14 Travel 1.2.840.1 1.2.426.723 [id number] [id number] Methodi 00:00:00 00:00:[address] 3.430.2.7 0.2.7.3.698 Ho spita .3.898608 084.8 l .8 2022-06-14 2022-06-14 Travel 1.2.840.1 1.2.970.260 8802 187300 Methodi 00:00:00 00:00:[address] 3.430.2.7 0.2.7.3.698 Ho spita .3.607105 084.8 l .8 2022-06-06 2022-06-07 Emergency [facility] [id number] Memoria 20:39:00 01:25:00 [place] 00 [facility] 2022-06-06 2022-06-07 Emergency [facility] [id number] Memoria 20:39:00 01:25:00 [place] 00 [facility] 2022-06-06 2022-06-07 Emergency [facility] [id number] Memoria 20:39:00 01:25:00 [place] 00 [facility] 2022-06-06 2022-06-06 Emergency E AZNAUROVA-A MHBL MHBL [id number] MHBL 15:39:00 20:25:00 CLARA ROSS 2022-06-06 2022-06-06 Outpatient Aznaurova-A MHPL MHPL [id number] 15:39:00 20:25:00 nderson, 00 Marva 2022-06-06 2022-06-06 Outpatient Aznaurova-A MHPL MHPL [id number] 15:39:00 20:25:00 emmaon, 00 Marva 2022-06-06 2022-06-06 Outpatient ANANTH [facility] [id number] [place] 10:00:00 10:00:00 [facility] 2022-03-28 2022-03-29 Emergency [facility] [id number] Memoria 23:55:59 07:03:00 Ventura [facility] 2022-03-28 2022-03-29 Emergency [facility] [id number] Memoria 23:55:59 07:03:00 Ventura [facility] 2022-03-28 2022-03-29 Emergency [facility] [id number] Memoria 23:55:59 07:03:00 Guild [facility] 2022-03-28 2022-03-29 Outpatient Morales, Juarez MHPL MHPL [id number] 17:55:59 01:03:00 Q 2022-03-28 2022-03-29 Outpatient Morales Juarez MHPL MHPL [id number] 17:55:59 01:03:00 Q 2022-03-28 2022-03-29 Emergency E MORALESJUAREZ MHBL MHBL [id number] MHBL 17:55:00 01:03:00 2022-02-23 2022-03-14 Inpatient 3 [place] ENCPL CVA [id number] [facility] 15:39:00 13:20:00 jordan, 1201 [facility] 2022-02-28 2022-03-02 Observatio [facility] [id number] Memoria 18:08:23 19:05:00 n Guild 00 [facility] 2022-02-28 2022-03-02 Observatio [facility] [id number] Memoria 18:08:23 19:05:00 n Guild 00 [facility] 2022-02-28 2022-03-02 Observatio [facility] [id number] Memoria 18:08:23 19:05:00 n [place] 00 [facility] 2022-02-28 2022-03-02 Outpatient E SALIMA LORA MED [id number] MHBL 15:08:00 13:05:00 DIMITRY 2022-02-28 2022-03-02 Outpatient Guido, ISRAPL MHPL [id number] 12:08:23 13:05:00 Dimitry 00 2022-02-28 2022-03-02 Outpatient Sad, MHPL MHPL [id number] 12:08:23 13:05:00 Dimitry 00 2022-02-28 2022-03-02 Outpatient Sad, MHPL MHPL [id number] 12:08:23 13:05:00 Dimitry 00 2022-02-28 2022-03-02 Outpatient Sad, MHPL MHPL [id number] 12:08:23 13:05:00 Dimitry 00 2022-02-15 2022-02-15 Outpatient LUCEROMikala [facility] [id number] [place] 09:00:00 09:00:00 [facility] 2022-02-06 2022-02-06 Telephone Jann, 1.2.840.1 [id number] Methodi 00:00:00 00:00:[address] [facility] 3.430.2.7 Hosp josh .3.623933 l .8 2022-02-06 2022-02-06 Telephone Jann, 1.2.840.1 [id number] [id number] Methodi 00:00:00 00:00:[address] [facility] 3.430.2.7 Hosp josh .3.814074 l .8 2022-01-31 2022-01-31 Office ANNIE Magallanes 6410 1.2.448.362 8930 83438 [place] 10:30:00 12:02:52 Visit Jose JASON 350.1.13.58 Health 9.2.7.2.686 [id number] 8 2021-12-07 2021-12-29 Inpatient 3 [place] ENCPL CVA [id number] [facility] 19:35:00 16:20:00 jordan 0914 [facility] [place] 2021-12-02 2021-12-02 Outpatient ANANTH [facility] [id number] [place] 10:30:00 10:30:00 [facility] 2021-11-21 2021-11-21 Outpatient [facility] PRIV PRIV [id number] [facility] 00:00:00 00:00:00 d_J [id number] Medica l 2021-11-16 2021-11-16 Outpatient [facility] PRIV PRIV 243 [id number] [facility] 00:00:00 00:00:00 d_J [id number] Medica l 2021-11-11 2021-11-11 Outpatient [facility] PRIV PRIV 243 [id number] [facility] 00:00:00 00:00:00 d_J [id number] Medica l 2021-11-01 2021-11-01 Outpatient [facility] PRIV PRIV 243 [id number] [facility] 00:00:00 00:00:00 d_J [id number] Medica l 2021-11-01 [facility] [id number] [facility] 00:00:00 00:00:00 RAÚL Schneider: Health - Med ical [address] [address] , Ph. 2021-11-01 2021-11-01 Outpatient Wyatt PRIV PRIV [id number] 00:00:00 00:00:00 Estelle [id number] 2021-10-28 2021-10-28 Outpatient [facility]Tod PRIV PRIV 243 [id number] [facility] 00:00:00 00:00:00 d_J [id number] Medica l 2021-10-27 2021-10-27 Outpatient [facility]Tod PRIV PRIV 243 [id number] [facility] 00:00:00 00:00:00 d_J [id number] Medica l 2021-10-25 2021-10-25 Outpatient [facility]Tod PRIV PRIV 243 [id number] [facility] 00:00:00 00:00:00 d_J [id number] Medica l 2021-10-25 2021-10-25 Estelle [facility] [id number] [facility] 00:00:00 00:00:00 RAÚL Schneider: Health - Med ical [address] [address] , Ph. 2021-10-25 2021-10-25 Outpatient Wyatt, PRIV PRIV [id number] 00:00:00 00:00:00 Estelle [id number] 2021-10-21 2021-10-21 Outpatient [facility]Tod PRIV PRIV 243 [id number] [facility] 00:00:00 00:00:00 d_J [id number] Medica l 2021-10-20 2021-10-20 Outpatient [facility]Tod PRIV PRIV 243 [id number] [facility] 00:00:00 00:00:00 d_J [id number] Medica l 2021-10-20 2021-10-20 Sergio Up [facility] [id number] [facility] 00:00:00 00:00:00 Alfredo [facility] - Med ical MD: [address] [address] , Ph. 2021-10-20 2021-10-20 Outpatient Alfredo, PRIV PRIV [id number] 00:00:00 00:00:00 Sergioairam Up [id number] 2021-10-18 2021-10-18 Outpatient GC_BAHC_Tod PRIV PRIV 243 [id number] [facility] 03:56:00 03:56:00 d_J [id number] Medica l 2021-10-18 2021-10-18 Estelle [facility] [id number] [facility] 00:00:00 00:00:00 RAÚL Schneider: Health - Med ical [address] [place] [address] , Ph. 2021-10-18 2021-10-18 Outpatient Wyatt PRIV PRIV [id number] 00:00:00 00:00:00 Estelle [id number] 2021-10-16 2021-10-16 Outpatient GC_BAHC_Tod PRIV PRIV 243 [id number] [facility] 04:50:00 04:50:00 d_Ricky [id number] Medica l 2021-10-14 2021-10-14 Outpatient GC_BAHC_Tod PRIV PRIV 243 [id number] [facility] 07:48:00 07:48:00 d_J [id number] Medica l 2021-10-14 2021-10-14 Estelle [facility] [id number] [facility] 00:00:00 00:00:00 RAÚL Schneider: Health - Med ical [address] [place] [address] , Ph. 2021-10-14 2021-10-14 Outpatient Wyatt, PRIV PRIV [id number] 00:00:00 00:00:00 Estelle [id number] 2021-10-12 2021-10-12 Outpatient GC_BAHC_Tod PRIV PRIV 243 [id number] [facility] 04:19:00 04:19:00 d_J [id number] Medica l 2021-10-11 2021-10-11 Outpatient GC_BAHC_Tod PRIV PRIV 243 [id number] [facility] 10:06:00 10:06:00 d_Ricky [id number] Medica l 2021-10-11 2021-10-11 Estelle [facility] [id number] [facility] 00:00:00 00:00:00 RAÚL Schneider: Health - Med ical [address] [place] [address] , Ph. 2021-10-11 2021-10-11 Outpatient Wyatt, PRIV PRIV [id number] e-[id number] 00:00:00 00:00:00 Estelle [id number] [id number] 2021-10-07 2021-10-07 Outpatient GC_BAHC_Tod PRIV PRIV 243 [id number] [facility] 04:03:00 04:03:00 d_J [id number] Medica l 2021-10-07 2021-10-07 Estelle [facility] [id number] [facility] 00:00:00 00:00:00 RAÚL Schneider: Health - Med ical [address] [place] [address] , Ph. 2021-10-04 2021-10-04 Outpatient GC_BAHC_Tod PRIV PRIV 243 [id number] [facility] 06:03:00 06:03:00 d_J [id number] Medica l 2021-10-04 2021-10-04 Outpatient Wyatt, PRIV PRIV [id number] 00:00:00 00:00:00 Estelle [id number] 0608-07-12 2021-10-04 Estelle [facility] [id number] [facility] 00:00:00 00:00:00 RAÚL Schneider: Health - Med ical [address] [place] [address] , Ph. 2021-09-29 2021-09-29 Outpatient JAXON SUERO SLE [id number] [facility] 00:00:00 00:00:00 ARUN 2021-09-27 2021-09-27 Outpatient GC_BAHC_Tod PRIV PRIV 243 [id number] [facility] 01:19:00 01:19:00 d_J [id number] Medica l 2021-08-19 2021-09-24 [facility] Maria De Leon [facility] [id number] [facility] 13:12:00 16:11:00 Encounter [facility]ie Dalal[facility] Khannan Kameshvaran Bartsch, Heather Renee 2021-08-19 2021-09-24 Inpatient UR JAXON SHAH Neuro ICU [id number] [facility] 13:12:00 16:11:00 BRETT 2021-09-19 2021-09-19 [facility] [id number] 23:59:00 23:59:00 Encounter [facility] 2021-09-19 2021-09-19 Outpatient [facility] [id number] [facility] 00:00:00 23:59:00 2021-09-16 2021-09-16 Outpatient SHIRLEY SUERO [facility] [id number] [facility] 00:00:00 00:00:00 [facility] 2021-09-15 2021-09-15 [id number] [facility] 00:00:00 00:00:00 [facility] 2021-09-12 2021-09-12 Anesthesia Kiarra Rangel [facility] [id number] 11:54:00 12:55:00 Event Chen Dsouza [facility] 2021-09-12 2021-09-12 Surgery Adalgisa, [facility] [id number] 10:00:00 11:00:00 [facility] 2021-09-09 2021-09-09 Anesthesia Jacques Cruz [facility] [id number] 13:15:51 13:15:51 Event Bronson Michel [facility] 2021-08-20 2021-08-20 Orders [facility] [id number] 00:00:00 00:00:00 Only [facility] 2021-08-11 2021-08-19 Hospital Isaac Forde [facility] [id number] 01:30:00 12:30:00 Encounter [facility] 2021-08-11 2021-08-19 Inpatient ISAAC MEEHAN [facility] [id number] [facility] 01:30:00 12:30:00 Med 2021-08-11 2021-08-11 Travel [facility] [id number] [facility] 00:00[facility]00 00:00:00 [facility] 2021-08-02 2021-08-02 Office ANNIE Magallanes [id number] [place] 10:00:00 12:05:[address] 350.1.13.58 Health 9.2.7.2.686 [id number] 2021-06-30 2021-06-30 (TEL) [facility] [id number] Co mmon 00:00:00 00:00:00 [facility] 2021-05-18 2021-05-18 Telephone ANNIE Magallanes 6410 [id number] [place] 00:00:00 00:00:[address] 350.1.13.58 Health 9.2.7.2.686 [id number] 2021-01-25 2021-01-25 [facility] [id number] 00:00:00 00:00:00 ion [facility] 2021-01-24 2021-01-24 [facility] [id number] [id number] 00:00:00 00[facility]00 [facility] 2021-01-24 2021-01-24 Abstract Jessa [facility] [id number] 00:00:00 00:00:00 [facility] 2021-01-14 2021-01-14 Documentat Bebe [facility] [id number] 00:00:00 00:00:00 [facility] 2020-11-15 2020-11-15 Orders Paula [facility] [id number] 00:00:00 00:00:00 Only [facility] 2020-03-10 2020-03-11 Outpt Diag nullFlavo [facility] [id number] Memoria 22:56:00 05:59:00 Services r Outpatient 00 l Imaging [facility] 2020-03-10 2020-03-11 Outpt Diag nullFlavo [facility] [id number] Memoria 22:56:00 05:59:00 Services r Outpatient 00 l Imaging [facility] 2020-03-10 2020-03-11 Outpt Diag nullFlavo [facility] [id number] Memoria 22:56:00 05:59:00 Services r Outpatient 00 l Imaging [facility] 2020-03-10 2020-03-10 Outpatient Palvadi, MHOIP MHOIP [id number] 16:56:00 23:59:00 Vilma 00 2020-03-10 2020-03-10 Outpatient Palvadi, MHOIP MHOIP [id number] 16:56:00 23:59:00 Vilma 2020-02-25 2020-02-25 Outpatient PALVADI, [facility] [id number] [place] 00:00:00 00:00:00 VILMA 977 Method i 2020-02-25 2020-02-25 Outpatient PALVADI, [facility] [id number] [place] 00:00:00 00:00:00 VILMA 979 Method i 2020-01-30 2020-01-30 Orders Doctor JUAREZ 1.2.840.114 [id number] 00:00:00 00:00:00 Only Unassigned, TIMOTHY 350.1.13.10 [facility] 4.2.7.2.686 [id number] 2020-01-30 2020-01-30 Orders Doctor WYNN 1.2.840.114 [id number] [facility] 00:00:00 00:00:00 Only Unassigned, TIMOTHY 350.1.13.10 [facility] 4.2.7.2.686 Red as [id number] [address] 2020-01-29 2020-01-29 Telephone Yoana [facility] 1.2.840.114 [id number] 00:00:00 00:00:00 [place] 350.1.13.10 [place] 4.2.7.2.686 Professio [id number] [facility] 2020-01-29 2020-01-29 Telephone Yoana ARARLINE 1.2.840.114 [id number] Univers 00:00:00 00:00:00 [place] 350.1.13.10 it candis [place] 4.2.7.2.686 [place] rosophie [id number] Ks dical nal 2 [facility] 2020-01-02 2020-01-02 Outpatient ST[facility] [id number] Common 00:00:00 00:00:00 [facility] 2019-12-31 2019-12-31 Outpatient [facility] [id number] Common 00:00:00 00:00:00 [facility] 2019-11-24 2019-11-24 [facility] [id number] Common 09:17:00 09:17:[address] [facility] [address] [facility] 2019-11-12 2019-11-12 Out[facility] [id number] Common 09:30:00 09:30:00 [facility] 2019-11-04 2019-11-04 Outpatient EL [facility]H [facility] [id number] [facility] 00:00:00 00:00:00 2019-11-04 2019-11-04 Outpatient EL [facility] [id number] [facility] 00:00:00 00:00:00 2019-10-07 2019-10-07 Outpatient EL [facility]H [facility] [id number] [facility] 00:00:00 00:00:00 2019-10-02 2019-10-02 [facility] [id number] Common 16:22:00 16:22:[address] [facility] 2019-10-02 2019-10-02 [facility] [id number] Common 10:15:00 10:15:[address] [facility] 2019-10-02 2019-10-02 [facility] [id number] Common 10:00:00 10:00:[address] [facility] 2019-09-02 2019-09-02 Outpatient SLE SLE [id number] [facility] 00:00:00 00:00:00 [id number] 2019-09-02 2019-09-02 Outpatient EL SLE [facility]H [id number] [facility] 00:00:00 00:00:00 2019-07-01 2019-07-01 [facility] [id number] Common 11:45:00 11:45:[address] [facility] 2019-05-23 2019-05-23 Orders Doctor JUAREZ 1.2.840.114 [id number] Univers 00:00:00 00:00:00 Only Unassigned, TIMOTHY 350.1.13.10 ity [place] [facility] 4.2.7.2.686 Red as [id number] [place] [address] [place] 2019-05-22 2019-05-22 [place] Yoana [facility] 1.2.840.114 [id number] [facility] 00:00:00 00:00:00 [place] 350.1.13.10 ity [place] 4.2.7.2.686 [place] Profess[place] [id number] [place] dicmn nal 2 Branch [facility] 2019-05-12 2019-05-12 Orders Doctor JUAREZ 1.2.840.114 [id number] Univers 00:00:00 00:00:00 Only Unassigned, TIMOTHY 350.1.13.10 ity [place] [facility] 4.2.7.2.686 Red as [id number] [place] [address] [place] 2019-04-10 2019-04-10 Out[facility] [id number] Common 11:54:00 11:54:[address] [facility] 2019-03-31 2019-03-31 Out[facility] [id number] Common 11:20:00 11:20:[address] [facility] 2019-03-27 2019-03-27 Out[facility] [id number] Common 10:30:00 10:30:[address] [facility] 2019-03-12 2019-03-12 Outpatient Liya Howell [id number] Common 09:45:00 09:45:00 t [facility] it [place] [employer] [facility] Results Test Description Test Time Test Comments Results Result Comments Source SARS-COV2/RT-PCR (HS & REF LABS) 2022-10-11 14:20:20 Test Item Value Reference Range Interpretation Comme nts SARS-COV2/RT-PCR (test code = Negative Negative The SARS-CoV-2 target nucleic [id number]) acids are not d etected in this specimen. Negat arcadio results do not preclude SA RS-CoV-2 infection and s hould not be used as the sole bas is for patient management deci sions. Negative results must be combined with clinical observ ations, patient history, and ep idemiological information. A false negative result may occu r if a specimen is improperly c ollected, transported or handled. This SARS CoV-2 test is a rapid, real-time RT-PC R test intended for the qualita tive detection of nucleic acid fr om SARS-CoV-2 in a nasopharyngea l swab specimen collected from individuals suspected of CO VID-19 by their healthcare prov ider. This test has been authorized by FDA [...] revoked sooner. Fact Sheet for Healthcare Providers: https://www.ShotSpotterid.co m/Documents/Xpert%20Xpress%20SARS%20CoV-2/Fact%20Sheets/136-6862%87WYFT-WTS-6%20 HEALTHCARE%20PROVIDERS%20FACT%20SHEET.pdf Fact Sheet for Healthcare Patients: https://www.Captalis.Recondo/Documents/Xpert%20Xp ress%20SARS%20CoV-2/Fact%20Sheets/339-3801%63UVSS-ACQ-8%20PATIENT%20FACT%20SHEET .pdfPOCT-GLUCOSE [id number] 11:50:38 Test Item Value Reference Range Interpretation Comments POC-GLUCOSE METER 108 mg/dL 70-110 : TESTED A T [facility] 6720 (BEAKER) (test code = ANIL Brown [facility], 1538) 83540: Medical Numerical Control Operator/Techni daniel ID = [id number] for Am Rd pryor POCT-GLUCOSE [id number] 07:55:16 Test Item Value Reference Range Interpretation Comments POC-GLUCOSE METER 93 mg/dL 70-110 : TESTED A T [facility] 6720 (BEAKER) (test code = ANIL Brown [facility], 1538) 48968: Medical Numerical Control Operator/Techni daniel ID = [id number] for Amad or, Rd BASIC METABOLIC [id number] 04:39:03 Test Item Value Reference Range Interpretation Comments SODIUM (BEAKER) 133 meq/L 136-145 L (test code = 381) POTASSIUM 3.3 meq/L 3.5-5.1 L (BEAKER) (test code = 379) CHLORIDE (BEAKER) 97 meq/L 98-107 L (test code = 382) CO2 (BEAKER) 29 meq/L 22-29 (test code = 355) BLOOD UREA 5 mg/dL 7-21 L NITROGEN (BEAKER) (test code = 354) CREATININE 3.64 mg/dL 0.57-1.25 H (BEAKER) (test code = 358) GLUCOSE RANDOM 80 mg/dL 70-105 (BEAKER) (test code = 652) CALCIUM (BEAKER) 8.4 mg/dL 8.4-10.2 (test code = 697) EGFR (BEAKER) 14 Interpretatio n of eGFR (test code = mL/min/1.73 values Stage De scription 1092) sq m Result G1 Henrry l or high >=90 G2 Mildly decreased 60-89 G3a Mildl y to moderately 45-5 9 G3b Moderately to s everely 30-44 G4 Severl y decreased 15-29 G5 Kidney failure <15Reported eGF R is based on the CKD-EPI 2020 equation that d oes not use a race coefficientEsti mated GFR is not as accur ate as Creatinine Sherice mikhail in predicting glom erular filtration rate . Estimated GFR is not appl icable for dialysis patien ts Medical Numerical Control Operator ID - EOOCBC W/PLT COUNT & AUTO [id number] 04:28:40 Test Item Value Reference Range Interpretation Comments WHITE BLOOD CELL COUNT 3.5 K/ L 3.5-10.5 (BEAKER) (test code = 775) RED BLOOD CELL COUNT 2.32 M/ L 3.93-5.22 L (BEAKER) (test code = 761) HEMOGLOBIN (BEAKER) 8.2 GM/DL 11.2-15.7 L (test code = 410) HEMATOCRIT (BEAKER) 25.2 % 34.1-44.9 L (test code = 411) MEAN CORPUSCULAR VOLUME 109 fL 79-95 H (BEAKER) (test code = 753) MEAN CORPUSCULAR 35.3 pg 25.6-32.2 H HEMOGLOBIN (BEAKER) (test code = 751) MEAN CORPUSCULAR 32.5 GM/DL 32.2-35.5 HEMOGLOBIN CONC (BEAKER) (test code = 752) RED CELL DISTRIBUTION 13.3 % 11.7-14.4 WIDTH (BEAKER) (test code = 412) PLATELET COUNT (BEAKER) 59 K/CU MM 150-450 L (test code = 756) MEAN PLATELET VOLUME Unable to report due (BEAKER) (test code = to abn ormal Platelet 754) population distribution. NUCLEATED RED BLOOD 0 /100 WBC 0-0 CELLS (BEAKER) (test code = 413) NEUTROPHILS RELATIVE 29 % PERCENT (BEAKER) (test code = 429) LYMPHOCYTES RELATIVE 54 % PERCENT (BEAKER) (test code = 430) MONOCYTES RELATIVE 12 % PERCENT (BEAKER) (test code = 431) EOSINOPHILS RELATIVE 2 % PERCENT (BEAKER) (test code = 432) BASOPHILS RELATIVE 1 % PERCENT (BEAKER) (test code = 437) NEUTROPHILS ABSOLUTE 1.00 K/ L 1.56-6.13 L COUNT (BEAKER) (test code = 670) LYMPHOCYTES ABSOLUTE 1.86 K/ L 1.18-3.74 COUNT (BEAKER) (test code = 414) MONOCYTES ABSOLUTE 0.40 K/ L 0.24-0.36 H COUNT (BEAKER) (test code = 415) EOSINOPHILS ABSOLUTE 0.07 K/ L 0.04-0.36 COUNT (BEAKER) (test code = 416) BASOPHILS ABSOLUTE 0.03 K/ L 0.01-0.08 COUNT (BEAKER) (test code = 417) IMMATURE 3.20 % 0.00-1.00 H GRANULOCYTES-RELATIVE PERCENT (BEAKER) (test code = 2801) POCT-GLUCOSE [id number] 21:23:16 Test Item Value Reference Range Interpretation Comments POC-GLUCOSE METER 94 mg/dL 70-110 : TESTED A T [facility] 6720 (BEAKER) (test code = [facility], 1538) 84289: Medical Numerical Control Operator/Techni daniel ID = [id number] for JESSICA HELMS POCT-GLUCOSE [id number] 17:16:10 Test Item Value Reference Range Interpretation Comments POC-GLUCOSE METER 83 mg/dL 70-110 : TESTED A T [facility] 6720 (BEAKER) (test code = [facility], 1538) 59334: Medical Numerical Control Operator/Techni daniel ID = [id number] for Past ran, Michelle POCT-GLUCOSE [id number] 11:57:24 Test Item Value Reference Range Interpretation Comments POC-GLUCOSE METER 83 mg/dL 70-110 : TESTED A T [facility] 6720 (BEAKER) (test code = [facility], 1538) 86709: Medical Numerical Control Operator/Techni daniel ID = [id number] for Past ran, Michelle POCT-GLUCOSE [id number] 08:15:27 Test Item Value Reference Range Interpretation Comments POC-GLUCOSE METER 67 mg/dL 70-110 L : TESTED A T [facility] 6720 (BEAKER) (test code = [facility], 1538) 67076: Medical Numerical Control Operator/Techni daniel ID = [id number] for Past ran, Michelle BASIC METABOLIC [id number] 04:52:46 Test Item Value Reference Range Interpretation Comments SODIUM (BEAKER) 136 meq/L 136-145 (test code = 381) POTASSIUM 3.5 meq/L 3.5-5.1 (BEAKER) (test code = 379) CHLORIDE (BEAKER) 101 meq/L 98-107 (test code = 382) CO2 (BEAKER) 27 meq/L 22-29 (test code = 355) BLOOD UREA 3 mg/dL 7-21 L NITROGEN (BEAKER) (test code = 354) CREATININE 2.47 mg/dL 0.57-1.25 H (BEAKER) (test code = 358) GLUCOSE RANDOM 233 mg/dL 70-105 H (BEAKER) (test code = 652) CALCIUM (BEAKER) 8.1 mg/dL 8.4-10.2 L (test code = 697) EGFR (BEAKER) 22 Interpretatio n of eGFR (test code = mL/min/1.73 values Stage De scription 1092) sq m Result G1 Henrry l or high >=90 G2 Mildly decreased 60-89 G3a Mildl y to moderately 45-5 9 G3b Moderately to s everely 30-44 G4 Severl y decreased 15-29 G5 Kidney failure <15Reported eGF R is based on the CKD-EPI 2020 equation that d oes not use a race coefficientEsti mated GFR is not as accur ate as Creatinine Sherice mikhail in predicting glom erular filtration rate . Estimated GFR is not appl icable for dialysis patien ts Medical Numerical Control Operator ID - CALVIN WVALPROIC ACID LEVEL, [id number] 04:51:32 Test Item Value Reference Range Interpretation Comments VALPROIC ACID TOTAL (BEAKER) (test 105 ug/mL 50-100 H code = 924) Therapeutic range for some clinical conditions may be >100 ug/mLPOCT-GLUCOSE [id number] 21:28:21 Test Item Value Reference Range Interpretation Comments POC-GLUCOSE METER 55 mg/dL 70-110 L : TESTED A T [facility] 6720 ([employer]) (test code = [employer] [facility], 1538) 50341: Medical Numerical Control Operator/Techni daniel ID = [id number] for EHSAN MILLER POCT-GLUCOSE [id number] 17:23:33 Test Item Value Reference Range Interpretation Comments POC-GLUCOSE METER 76 mg/dL 70-110 : TESTED A T [facility] 6720 (BEAKER) (test code = [employer] [facility], 1538) 58177: Medical Numerical Control Operator/Techni daniel ID = [id number] for ROCHELLE ANGUIANO (V)VANCE POCT-GLUCOSE [id number] 13:36:48 Test Item Value Reference Range Interpretation Comments POC-GLUCOSE METER 89 mg/dL 70-110 : TESTED A T [facility] 6720 (BEAKER) (test code = ANIL Brown [facility], 1538) 68451: Medical Numerical Control Operator/Techni daniel ID = [id number] for Amad or, Rd POCT-GLUCOSE [id number] 12:50:23 Test Item Value Reference Range Interpretation Comments POC-GLUCOSE METER 59 mg/dL 70-110 L : [facility] T [facility] 6720 [facility] (test code = ANIL Brown [facility], 1538) 87309: Medical Numerical Control Operator/Techni daniel ID = [id number] for Amad or, Rd POCT-GLUCOSE [id number] 09:53:12 Test Item Value Reference Range Interpretation Comments POC-GLUCOSE METER 93 mg/dL 70-110 : TESTED A T [facility] 6720 [facility] (test code = ANIL Brown [facility], 1538) 28351: Medical Numerical Control Operator/Techni daniel ID = [id number] for Ache e, Alisha POCT-GLUCOSE [id number] 08:14:25 Test Item Value Reference Range Interpretation Comments POC-GLUCOSE METER 60 mg/dL 70-110 L : Notified RN/MD: TESTED (BEAKER) (test code = AT [facility] 6720 [facility] 1538) [facility], 770 30: Medical Numerical Control Operator/Techni daniel ID = [id number] for HANNA HUMPHREYS RODRICK (CELLAVISION MANUAL DIFF)2022-10-09 07:40:47 Test Item Value Reference Range Interpretation Comments NEUTROPHILS - REL 23 % (CELLAVISION)(BEAKER) (test code = 2816) LYMPHOCYTES - REL 70 % (CELLAVISION)(BEAKER) (test code = 2817) MONOCYTES - REL 5 % (CELLAVISION)(BEAKER) (test code = 2818) EOSINOPHILS - REL 1 % (CELLAVISION)(BEAKER) (test code = 2819) MYELOCYTES - REL 1 % 0-0 H (CELLAVISION)(BEAKER) (test code = 2822) NEUTROPHILS - ABS 0.64 K/ul 1.56-6.13 L (CELLAVISION)(BEAKER) (test code = 2830) LYMPHOCYTES - ABS 1.96 K/ul 1.18-3.74 (CELLAVISION)(BEAKER) (test code = 2831) MONOCYTES - ABS 0.14 K/uL 0.24-0.36 L (CELLAVISION)(BEAKER) (test code = 2832) EOSINOPHILS - ABS 0.03 K/uL 0.04-0.36 L (CELLAVISION)(BEAKER) (test code = 2834) MYELOCYTES-ABS 0.03 K/uL 0.00-0.00 H (CELLAVISION)(BEAKER) (test code = 2837) TOTAL COUNTED (BEAKER) (test code 100 = 1351) MANUAL NRBC PER 100 CELLS (BEAKER) 1 /100 WBC 0-0 H (test code = 1353) WBC MORPHOLOGY (BEAKER) (test code Normal = 487) GIANT PLATELETS (BEAKER) (test Present code = 313) ANISOCYTOSIS (BEAKER) (test code = 3+ many 961) MACROCYTES (BEAKER) (test code = 3+ many 964) ELLIPTOCYTES (BEAKER) (test code = 1+ few 962) ARTIFACT (CELLAVISION)(BEAKER) Present (test code = 3432) PLATELET CONCENTRATION Decreased (CELLAVISION)(BEAKER) (test code = 3438) Medical Numerical Control Operator ID - [id number] ID - charis Ang comments: Slide comments:CBC W/PLT COUNT & AUTO [id number] 07:40:42 Test Item Value Reference Range Interpretation Comments WHITE BLOOD CELL COUNT (BEAKER) 2.8 K/ L 3.5-10.5 L (test code = 775) RED BLOOD CELL COUNT (BEAKER) 3.20 M/ L 3.93-5.22 L (test code = 761) HEMOGLOBIN (BEAKER) (test code = 11.1 GM/DL 11.2-15.7 L 410) HEMATOCRIT (BEAKER) (test code = 34.4 % 34.1-44.9 411) MEAN CORPUSCULAR VOLUME (BEAKER) 108 fL 79-95 H (test code = 753) MEAN CORPUSCULAR HEMOGLOBIN 34.7 pg 25.6-32.2 H (BEAKER) (test code = 751) MEAN CORPUSCULAR HEMOGLOBIN CONC 32.3 GM/DL 32.2-35.5 (BEAKER) (test code = 752) RED CELL DISTRIBUTION WIDTH 13.2 % 11.7-14.4 (BEAKER) (test code = 412) PLATELET COUNT (BEAKER) (test code 70 K/CU MM 150-450 L = 756) MEAN PLATELET VOLUME (BEAKER) 12.6 fL 9.4-12.3 H (test code = 754) NUCLEATED RED BLOOD CELLS (BEAKER) 0 /100 WBC 0-0 (test code = 413) BASIC METABOLIC [id number] 05:54:51 Test Item Value Reference Range Interpretation Comments SODIUM (BEAKER) 142 meq/L 136-145 (test code = 381) POTASSIUM 3.3 meq/L 3.5-5.1 L (BEAKER) (test code = 379) CHLORIDE (BEAKER) 103 meq/L 98-107 (test code = 382) CO2 (BEAKER) 28 meq/L 22-29 (test code = 355) BLOOD UREA 12 mg/dL 7-21 NITROGEN (BEAKER) (test code = 354) CREATININE 6.19 mg/dL 0.57-1.25 H (BEAKER) (test code = 358) GLUCOSE RANDOM 72 mg/dL 70-105 (BEAKER) (test code = 652) CALCIUM (BEAKER) 9.5 mg/dL 8.4-10.2 (test code = 697) EGFR (BEAKER) 7 Interpretatio n of eGFR (test code = mL/min/1.73 values Stage De scription 1092) sq m Result G1 Henrry l or high >=90 G2 Mildly decreased 60-89 G3a Mildl y to moderately 45-5 9 G3b Moderately to s everely 30-44 G4 Severl y decreased 15-29 G5 Kidney failure <15Reported eGF R is based on the CKD-EPI 2021 equation that d oes not use a race coefficientEsti mated GFR is not as accur ate as Creatinine Sherice elizondo in predicting glom erular filtration rate . Estimated GFR is not appl icable for dialysis patien ts Medical Numerical Control Operator ID - EOOPOCT-GLUCOSE [id number] 02:38:53 Test Item Value Reference Range Interpretation Comments POC-GLUCOSE METER 87 mg/dL 70-110 : TESTED A T [facility] 6720 (BEAKER) (test code = ANIL DYE ID, [id number]) [id number]: Medical Numerical Control Operator/Techni daniel ID = [id number] for NICHOLAS, CERRATO POCT-GLUCOSE [id number] 02:04:33 Test Item Value Reference Range Interpretation Comments POC-GLUCOSE METER 63 mg/dL 70-110 L : TESTED A T [facility] 6720 (BEAKER) (test code = [facility], 1538) [id number]: Medical Numerical Control Operator/Techni daniel ID = [id number] for NICHOLAS, CERRATO POCT-GLUCOSE [id number] 21:28:52 Test Item Value Reference Range Interpretation Comments POC-GLUCOSE METER 58 mg/dL 70-110 L : TESTED A T [facility] 6720 (BEAKER) (test code [facility], = 1538) 10088: Medical Numerical Control Operator/Techni daniel ID = [id number] for Marcio z, Rose Marie POCT-GLUCOSE [id number] 16:15:12 Test Item Value Reference Range Interpretation Comments POC-GLUCOSE METER 81 mg/dL 70-110 : TESTED A T [facility] 6720 (BEAKER) (test code = [facility], 1538) 07137: Medical Numerical Control Operator/Techni daniel ID = [id number] for Free Jair palominoeeta POCT-GLUCOSE [id number] 11:54:11 Test Item Value Reference Range Interpretation Comments POC-GLUCOSE METER 103 mg/dL 70-110 : TESTED A T [facility] 6720 (BEAKER) (test code = [facility], 1538) 59951: Medical Numerical Control Operator/Techni daniel ID = [id number] for Fr Jeannette cohen POCT-GLUCOSE [id number] 08:32:05 Test Item Value Reference Range Interpretation Comments POC-GLUCOSE METER 91 mg/dL 70-110 : TESTED A T [facility] 6720 (BEAKER) (test code = [facility], 1538) 12277: Medical Numerical Control Operator/Techni daniel ID = [id number] for Free man, Jeannette (CELLAVISION MANUAL DIFF)2022-10-08 07:44:46 Test Item Value Reference Range Interpretation Comments NEUTROPHILS - REL 31 % (CELLAVISION)(BEAKER) (test code = 2816) LYMPHOCYTES - REL 61 % (CELLAVISION)(BEAKER) (test code = 2817) MONOCYTES - REL 6 % (CELLAVISION)(BEAKER) (test code = 2818) EOSINOPHILS - REL 1 % (CELLAVISION)(BEAKER) (test code = 2819) BASOPHILS - REL 1 % (CELLAVISION)(BEAKER) (test code = 2820) NEUTROPHILS - ABS 0.93 K/ul 1.56-6.13 L (CELLAVISION)(BEAKER) (test code = 2830) LYMPHOCYTES - ABS 1.83 K/ul 1.18-3.74 (CELLAVISION)(BEAKER) (test code = 2831) MONOCYTES - ABS 0.18 K/uL 0.24-0.36 L (CELLAVISION)(BEAKER) (test code = 2832) EOSINOPHILS - ABS 0.03 K/uL 0.04-0.36 L (CELLAVISION)(BEAKER) (test code = 2834) BASOPHILS - ABS 0.03 K/uL 0.01-0.08 (CELLAVISION)(BEAKER) (test code = 2835) TOTAL COUNTED (BEAKER) (test code 100 = 1351) WBC MORPHOLOGY (BEAKER) (test Normal code = 487) PLT MORPHOLOGY (BEAKER) (test Normal code = 486) ANISOCYTOSIS (BEAKER) (test code 2+ moderate = 961) MACROCYTES (BEAKER) (test code = 2+ moderate 964) POIKILOCYTES (BEAKER) (test code 1+ few = 966) ACANTHOCYTES (BEAKER) (test code 1+ few = 471) ARTIFACT (CELLAVISION)(BEAKER) Present (test code = 3432) PLATELET CONCENTRATION Decreased (CELLAVISION)(BEAKER) (test code = 3438) Medical Numerical Control Operator ID - Darlene Jensen comments: Slide comments:CBC W/PLT COUNT & AUTO [id number] 07:44:45 Test Item Value Reference Range Interpretation Comments WHITE BLOOD CELL COUNT (BEAKER) 3.0 K/ L 3.5-10.5 L (test code = 775) RED BLOOD CELL COUNT (BEAKER) 2.60 M/ L 3.93-5.22 L (test code = 761) HEMOGLOBIN (BEAKER) (test code = 9.1 GM/DL 11.2-15.7 L 410) HEMATOCRIT (BEAKER) (test code = 28.3 % 34.1-44.9 L 411) MEAN CORPUSCULAR VOLUME (BEAKER) 109 fL 79-95 H (test code = 753) MEAN CORPUSCULAR HEMOGLOBIN 35.0 pg 25.6-32.2 H (BEAKER) (test code = 751) MEAN CORPUSCULAR HEMOGLOBIN CONC 32.2 GM/DL 32.2-35.5 (BEAKER) (test code = 752) RED CELL DISTRIBUTION WIDTH 13.2 % 11.7-14.4 (BEAKER) (test code = 412) PLATELET COUNT (BEAKER) (test code 65 K/CU MM 150-450 L = 756) MEAN PLATELET VOLUME (BEAKER) 12.8 fL 9.4-12.3 H (test code = 754) NUCLEATED RED BLOOD CELLS (BEAKER) 0 /100 WBC 0-0 (test code = 413) POCT-GLUCOSE [id number] 06:29:20 Test Item Value Reference Range Interpretation Comments POC-GLUCOSE METER 151 mg/dL 70-110 H : TESTED A T [facility] 6720 (BEAKER) (test code = [facility] ID, 1538) 90534: Medical Numerical Control Operator/Techni daniel ID = [id number] for Lorraine Dhaliwal BASIC METABOLIC [id number] 05:43:33 Test Item Value Reference Range Interpretation Comments SODIUM (BEAKER) 139 meq/L 136-145 (test code = 381) POTASSIUM 2.9 meq/L 3.5-5.1 L (BEAKER) (test code = 379) CHLORIDE (BEAKER) 105 meq/L 98-107 (test code = 382) CO2 (BEAKER) 25 meq/L 22-29 (test code = 355) BLOOD UREA 9 mg/dL 7-21 NITROGEN (BEAKER) (test code = 354) CREATININE 4.65 mg/dL 0.57-1.25 H (BEAKER) (test code = 358) GLUCOSE RANDOM 64 mg/dL 70-105 L (BEAKER) (test code = 652) CALCIUM (BEAKER) 8.3 mg/dL 8.4-10.2 L (test code = 697) EGFR (BEAKER) 10 Interpretatio n of eGFR (test code = mL/min/1.73 values Stage De scription 1092) sq m Result G1 Henrry l or high >=90 G2 Mildly decreased 60-89 G3a Mildl y to moderately 45-5 9 G3b Moderately to s everely 30-44 G4 Severl y decreased 15-29 G5 Kidney failure <15Reported eGF R is based on the CKD-EPI 2020 equation that d oes not use a race coefficientEsti mated GFR is not as accur ate as Creatinine Sherice elizondo in predicting glom erular filtration rate . Estimated GFR is not appl icable for dialysis patien ts PROTHROMBIN [id number] 05:25:41 Test Item Value Reference Range Interpretation Comments PROTIME ([facility]) (test code = 15.0 seconds 11.9-14.2 H 759) INR ([facility]) (test code = 370) 1.25 <=5.90 RECOMMENDED COUMADIN/WARFARIN INR THERAPY RANGESSTANDARD DOSE: 2.0 - 3.0 Includes: PROPHYLAXIS for venous thrombosis, systemic embolization; TREATMENT for venous thrombosis and/or pulmonary embolus.HIGH RISK: Target INR is 2.5-3.5 for patients with mechanical heart valves.POCT-GLUCOSE [id number] 00:46:00 Test Item Value Reference Range Interpretation Comments POC-GLUCOSE METER 68 mg/dL 70-110 L : TESTED A T [facility] 6720 ([facility] [employer]) (test code = [facility], 153) 35351: Medical Numerical Control Operator/Techni daniel ID = [id number] for Lorraine Benitez POCT-GLUCOSE [id number] 17:34:28 Test Item Value Reference Range Interpretation Comments POC-GLUCOSE METER 88 mg/dL 70-110 : TESTED A T [facility] 6720 ([facility]) (test code = [facility] [employer] [address] [facility], 153) 47903: Medical Numerical Control Operator/Techni daniel ID = [id number] for Jeannette Harris POCT-GLUCOSE [id number] 14:23:23 Test Item Value Reference Range Interpretation Comments POC-GLUCOSE METER 72 mg/dL 70-110 : TESTED A T [facility] 6720 ([facility]) (test code = [facility], 153) 44579: Medical Numerical Control Operator/Techni daniel ID = [id number] for Amilcar crockett (DivFlt)Connor POCT-GLUCOSE [id number] 13:43:11 Test Item Value Reference Range Interpretation Comments POC-GLUCOSE METER 63 mg/dL 70-110 L : TESTED A T [facility] 6720 (BEAKER) (test code = [facility] Nithya [facility], 1538) 37207: Medical Numerical Control Operator/Techni daniel ID = [id number] for Amilcar crockett (DivFlt)Connor POCT-GLUCOSE [id number] 12:21:33 Test Item Value Reference Range Interpretation Comments POC-GLUCOSE METER 68 mg/dL 70-110 L : TESTED A T [facility] 6720 (BEAKER) (test code = [facility] Nithya [facility], 1538) 53334: Medical Numerical Control Operator/Techni daniel ID = [id number] for Amilcar crockett (DivFlt)Connor lle POCT-GLUCOSE [id number] 08:15:35 Test Item Value Reference Range Interpretation Comments POC-GLUCOSE METER 76 mg/dL 70-110 : TESTED A T [facility] 6720 (BEAKER) (test code = [facility] Nithya [facility], 1538) 75500: Medical Numerical Control Operator/Techni daniel ID = [id number] for Jeannette Harris CBC W/PLT COUNT & AUTO [id number] 07:35:20 Test Item Value Reference Range Interpretation Comments WHITE BLOOD CELL COUNT (BEAKER) 3.3 K/ L 3.5-10.5 L (test code = 775) RED BLOOD CELL COUNT (BEAKER) 2.82 M/ L 3.93-5.22 L (test code = 761) HEMOGLOBIN (BEAKER) (test code = 9.9 GM/DL 11.2-15.7 L 410) HEMATOCRIT (BEAKER) (test code = 30.9 % 34.1-44.9 L 411) MEAN CORPUSCULAR VOLUME (BEAKER) 110 fL 79-95 H (test code = 753) MEAN CORPUSCULAR HEMOGLOBIN 35.1 pg 25.6-32.2 H (BEAKER) (test code = 751) MEAN CORPUSCULAR HEMOGLOBIN CONC 32.0 GM/DL 32.2-35.5 L (BEAKER) (test code = 752) RED CELL DISTRIBUTION WIDTH 13.2 % 11.7-14.4 (BEAKER) (test code = 412) PLATELET COUNT (BEAKER) (test code 70 K/CU MM 150-450 L = 756) MEAN PLATELET VOLUME (BEAKER) 12.1 fL 9.4-12.3 (test code = 754) NUCLEATED RED BLOOD CELLS (BEAKER) 0 /100 WBC 0-0 (test code = 413) (CELLAVISION MANUAL DIFF)2022-10-07 07:35:20 Test Item Value Reference Range Interpretation Comments NEUTROPHILS - REL 36 % (CELLAVISION)(BEAKER) (test code = 2816) LYMPHOCYTES - REL 56 % (CELLAVISION)(BEAKER) (test code = 2817) MONOCYTES - REL 5 % (CELLAVISION)(BEAKER) (test code = 2818) EOSINOPHILS - REL 3 % (CELLAVISION)(BEAKER) (test code = 2819) NEUTROPHILS - ABS 1.19 K/ul 1.56-6.13 L (CELLAVISION)(BEAKER) (test code = 2830) LYMPHOCYTES - ABS 1.85 K/ul 1.18-3.74 (CELLAVISION)(BEAKER) (test code = 2831) MONOCYTES - ABS 0.17 K/uL 0.24-0.36 L (CELLAVISION)(BEAKER) (test code = 2832) EOSINOPHILS - ABS 0.10 K/uL 0.04-0.36 (CELLAVISION)(BEAKER) (test code = 2834) TOTAL COUNTED (BEAKER) (test code 100 = 1351) MANUAL NRBC PER 100 CELLS 2 /100 WBC 0-0 H (BEAKER) (test code = 1353) PLT MORPHOLOGY (BEAKER) (test Normal code = 486) VACUOLATED NEUTROPHILS (BEAKER) Present (test code = 483) ANISOCYTOSIS (BEAKER) (test code 2+ moderate = 961) MACROCYTES (BEAKER) (test code = 2+ moderate 964) POIKILOCYTES (BEAKER) (test code 1+ few = 966) OVALOCYTES (BEAKER) (test code = 1+ few 477) ARTIFACT (CELLAVISION)(BEAKER) Present (test code = 3432) PLATELET CONCENTRATION Decreased (CELLAVISION)(BEAKER) (test code = 3438) Medical Numerical Control Operator ID - [id number] ID - Sara Viera comments: Slide comments: BASIC METABOLIC [id number] 05:12:13 Test Item Value Reference Range Interpretation Comments SODIUM (BEAKER) 141 meq/L 136-145 (test code = 381) POTASSIUM 3.6 meq/L 3.5-5.1 Specimen modera tely (BEAKER) (test hemolyzed code = 379) CHLORIDE (BEAKER) 107 meq/L 98-107 (test code = 382) CO2 (BEAKER) 26 meq/L 22-29 (test code = 355) BLOOD UREA 5 mg/dL 7-21 L NITROGEN (BEAKER) (test code = 354) CREATININE 3.10 mg/dL 0.57-1.25 H Specimen modera tely (BEAKER) (test hemolyzed code = 358) GLUCOSE RANDOM 60 mg/dL 70-105 L (BEAKER) (test code = 652) CALCIUM (BEAKER) 8.4 mg/dL 8.4-10.2 (test code = 697) EGFR (BEAKER) 17 Interpretatio n of eGFR (test code = mL/min/1.73 values Stage De scription 1092) sq m Result G1 Henrry l or high >=90 G2 Mildly decreased 60-89 G3a Mildl y to moderately 45-5 9 G3b Moderately to s everely 30-44 G4 Severl y decreased 15-29 G5 Kidney failure <15Reported eGF R is based on the CKD-EPI 2020 equation that d oes not use a race coefficientEsti mated GFR is not as accur ate as Creatinine Sherice mikhail in predicting glom erular filtration rate . Estimated GFR is not appl icable for dialysis patien ts Medical Numerical Control Operator ID - ADMINPOCT-GLUCOSE [id number] 22:34:54 Test Item Value Reference Range Interpretation Comments POC-GLUCOSE METER 83 mg/dL 70-110 : TESTED A T [facility] 6720 (BEAKER) (test code = [facility], 1538) 93068: Medical Numerical Control Operator/Techni daniel ID = [id number] for JESSICA HELMS POCT-GLUCOSE [id number] 12:10:34 Test Item Value Reference Range Interpretation Comments POC-GLUCOSE METER 123 mg/dL 70-110 H : TESTED A T [facility] 6720 (BEAKER) (test code = [facility], 1538) 22187: Medical Numerical Control Operator/Techni daniel ID = [id number] for Alley joy (contract)Camila POCT-GLUCOSE [id number] 11:35:49 Test Item Value Reference Range Interpretation Comments POC-GLUCOSE METER 44 mg/dL 70-110 L : TESTED A T [facility] 6720 (BEAKER) (test code = [facility], 1538) 74719: Medical Numerical Control Operator/Techni daniel ID = [id number] for NWAJ IAKU, [place] POCT-GLUCOSE [id number] 09:20:12 Test Item Value Reference Range Interpretation Comments POC-GLUCOSE METER 104 mg/dL 70-110 : TESTED A T [facility] 6720 (BEAKER) (test code = [facility], 1538) 40251: Medical Numerical Control Operator/Techni daniel ID = [id number] for Ev ancho (contract), Camila nicolasa POCT-GLUCOSE [id number] 09:02:43 Test Item Value Reference Range Interpretation Comments POC-GLUCOSE METER 64 mg/dL 70-110 L : TESTED A T [facility] 6720 ([facility]) (test code = [facility], 1538) 84395: Medical Numerical Control Operator/Techni daniel ID = [id number] for NWAJ IAKU, [place] POCT-GLUCOSE [id number] 23:05:17 Test Item Value Reference Range Interpretation Comments POC-GLUCOSE METER 101 mg/dL 70-110 : TESTED A T [facility] 6720 (BEAKER) (test code [facility], = 1538) 66877: Medical Numerical Control Operator/Techni daniel ID = [id number] for Ezeh , Emy POCT-GLUCOSE [id number] 21:52:50 Test Item Value Reference Range Interpretation Comments POC-GLUCOSE METER 46 mg/dL 70-110 L : TESTED A T [facility] 6720 (BEAKER) (test code = [facility], 1538) 10982: Medical Numerical Control Operator/Techni daniel ID = [id number] for TOLO , NEFTALI POCT-GLUCOSE [id number] 17:53:51 Test Item Value Reference Range Interpretation Comments POC-GLUCOSE METER 76 mg/dL 70-110 : TESTED A T [facility] 6720 (BEAKER) (test code = [facility], 1538) 82561: Medical Numerical Control Operator/Techni daniel ID = [id number] for Amad or, Rd POCT-GLUCOSE [id number] 17:19:35 Test Item Value Reference Range Interpretation Comments POC-GLUCOSE METER 76 mg/dL 70-110 : TESTED A T [facility] 6720 (BEAKER) (test code = ANIL Brown [facility], 1538) 52843: Medical Numerical Control Operator/Techni daniel ID = [id number] for Amad or, Rd POCT-GLUCOSE [id number] 12:31:38 Test Item Value Reference Range Interpretation Comments POC-GLUCOSE METER 76 mg/dL 70-110 : TESTED A T [facility] 6720 (BEAKER) (test code = [facility], 1538) 55599: Medical Numerical Control Operator/Techni daniel ID = [id number] for Amad or, Rd XR ABDOMEN/KUB 1 VIEW [id number] 11:36:52 [facility] SERAF[facility] STRATTONN CLIFF : 1965 Sex: FXR ABDOMEN/KUB 1 VIEW PORTABLECLINICAL HISTORY: Enteric tube placement verificationTECHNIQUE: XR ABDOMEN/KUB 1 VIEW PORTABLECOMPARISON: August 28, 2021IMPRESSION:No enteric tube identified. Clinical correlation recommended. The bowel gas pattern is nonspecific and nonobstructive. Supine imaginginsensitive for exclusion of free air.Electronically Signed By: Dominic Arenas10/05/2022 11:38 CDTWorkstation Name: [id number] METABOLIC [id number] 10:10:41 Test Item Value Reference Range Interpretation Comments SODIUM (BEAKER) 143 meq/L 136-145 (test code = 381) POTASSIUM 3.1 meq/L 3.5-5.1 L (BEAKER) (test code = 379) CHLORIDE (BEAKER) 107 meq/L 98-107 (test code = 382) CO2 (BEAKER) 30 meq/L 22-29 H (test code = 355) BLOOD UREA 6 mg/dL 7-21 L NITROGEN (BEAKER) (test code = 354) CREATININE 4.09 mg/dL 0.57-1.25 H (BEAKER) (test code = 358) GLUCOSE RANDOM 72 mg/dL 70-105 (BEAKER) (test code = 652) CALCIUM (BEAKER) 8.2 mg/dL 8.4-10.2 L (test code = 697) EGFR (BEAKER) 12 Interpretatio n of eGFR (test code = mL/min/1.73 values Stage De scription 1092) sq m Result G1 Henrry l or high >=90 G2 Mildly decreased 60-89 G3a Mildl y to moderately 45-5 9 G3b Moderately to s everely 30-44 G4 Severl y decreased 15-29 G5 Kidney failure <15Reported eGF R is based on the CKD-EPI 2020 equation that d oes not use a race coefficientEsti mated GFR is not as accur ate as Creatinine Sherice mikhail in predicting glom erular filtration rate . Estimated GFR is not appl icable for dialysis patien ts Medical Numerical Control Operator ID - MMPOCT-GLUCOSE [id number] 08:32:54 Test Item Value Reference Range Interpretation Comments POC-GLUCOSE METER 79 mg/dL 70-110 : TESTED A T [facility] 6720 (BEAKER) (test code = [facility], 1538) 37687: Medical Numerical Control Operator/Techni daniel ID = [id number] for Amad or, Rd BLOOD [id number] 08:00:10 Test Item Value Reference Range Interpretation Comments CULTURE (BEAKER) (test No growth in 5 days code = 1095) BLOOD [id number] 08:00:09 Test Item Value Reference Range Interpretation Comments CULTURE (BEAKER) (test No growth in 5 days code = 1095) The specimen volume collected for this blood culture was below the optimum (10 mL per bottle or 20 mL total). Use of lower volumes may adversely affect recovery and/or detection times of some organisms.POCT-GLUCOSE [id number] 02:37:15 Test Item Value Reference Range Interpretation Comments POC-GLUCOSE METER 79 mg/dL 70-110 : TESTED A T [facility] 6720 (BEAKER) (test code = [facility], 153) 63752: Medical Numerical Control Operator/Techni daniel ID = [id number] for AURA BROOKS POCT-GLUCOSE [id number] 23:40:01 Test Item Value Reference Range Interpretation Comments POC-GLUCOSE METER 48 mg/dL 70-110 L : TESTED A T [facility] 6720 (BEAKER) (test code = [facility], 1538) 19802: Medical Numerical Control Operator/Techni daniel ID = [id number] for AURA BROOKS POCT-GLUCOSE [id number] 16:49:37 Test Item Value Reference Range Interpretation Comments POC-GLUCOSE METER 78 mg/dL 70-110 : TESTED A T [facility] 6720 (BEAKER) (test code = [facility], 153) 48834: Medical Numerical Control Operator/Techni daniel ID = [id number] for Free man, Jeannette POCT-GLUCOSE [id number] 11:50:23 Test Item Value Reference Range Interpretation Comments POC-GLUCOSE METER 81 mg/dL 70-110 : TESTED A T [facility] 6720 (BEAKER) (test code = [facility], 1538) 72341: Medical Numerical Control Operator/Techni daniel ID = [id number] for Free man, Jeannette POCT-GLUCOSE [id number] 08:57:05 Test Item Value Reference Range Interpretation Comments POC-GLUCOSE METER 94 mg/dL 70-110 : TESTED A T [facility] 6720 (BEAKER) (test code = [facility], 1538) 62826: Medical Numerical Control Operator/Techni daniel ID = [id number] for Free man, Jeannette POCT-GLUCOSE [id number] 08:20:25 Test Item Value Reference Range Interpretation Comments POC-GLUCOSE METER 44 mg/dL 70-110 L : TESTED A T [facility] 6720 (BEAKER) (test code = [facility], 1538) 65470: Medical Numerical Control Operator/Techni daniel ID = [id number] for Free man, Jeannette POCT-GLUCOSE [id number] 05:48:56 Test Item Value Reference Range Interpretation Comments POC-GLUCOSE METER 88 mg/dL 70-110 : TESTED A T [facility] 6720 (BEAKER) (test code = [facility], 1538) 35604: Medical Numerical Control Operator/Techni daniel ID = [id number] for David meneses, Sunny POCT-GLUCOSE [id number] 02:26:41 Test Item Value Reference Range Interpretation Comments POC-GLUCOSE METER 88 mg/dL 70-110 : TESTED A T [facility] 6720 (BEAKER) (test code = ANIL Brown [facility], 1538) 12334: Medical Numerical Control Operator/Techni daniel ID = [id number] for David meneses, Sunny POCT-GLUCOSE [id number] 21:51:49 Test Item Value Reference Range Interpretation Comments POC-GLUCOSE METER 73 mg/dL 70-110 : TESTED A T [facility] 6720 (BEAKER) (test code DASHAWN [facility], 26572: = 1538) Medical Numerical Control Operator/Techni daniel ID = [id number] for Antonio Juarez BASIC METABOLIC [id number] 18:30:24 Test Item Value Reference Range Interpretation Comments SODIUM (BEAKER) 142 meq/L 136-145 (test code = 381) POTASSIUM 3.2 meq/L 3.5-5.1 L (BEAKER) (test code = 379) CHLORIDE (BEAKER) 109 meq/L 98-107 H (test code = 382) CO2 (BEAKER) 25 meq/L 22-29 (test code = 355) BLOOD UREA 13 mg/dL 7-21 NITROGEN (BEAKER) (test code = 354) CREATININE 5.09 mg/dL 0.57-1.25 H (BEAKER) (test code = 358) GLUCOSE RANDOM 182 mg/dL 70-105 H (BEAKER) (test code = 652) CALCIUM (BEAKER) 8.0 mg/dL 8.4-10.2 L (test code = 697) EGFR (BEAKER) 9 Interpretatio n of eGFR (test code = mL/min/1.73 values Stage De scription 1092) sq m Result G1 Henrry l or high >=90 G2 Mildly decreased 60-89 G3a Mildl y to moderately 45- 59 G3b Moderately to s everely 30-44 G4 Severl y decreased 15-29 G5 Kidney failure <15Reported eGF R is based on the CKD-EPI 2020 equation that d oes not use a race coefficientEsti mated GFR is not as accur ate as Creatinine Sherice westce in predicting glom erular filtration rate . Estimated GFR is not appl icable for dialysis patien ts Medical Numerical Control Operator ID - ADMINPOCT-GLUCOSE [id number] 17:31:35 Test Item Value Reference Range Interpretation Comments POC-GLUCOSE METER 83 mg/dL 70-110 : TESTED A T [facility] 6720 ([employer]) (test code = [facility], 1538) 51610: Medical Numerical Control Operator/Techni daniel ID = [id number] for Jeannette Harris POCT-GLUCOSE [id number] 12:51:21 Test Item Value Reference Range Interpretation Comments POC-GLUCOSE METER 98 mg/dL 70-110 : TESTED A T [facility] 6720 ([facility]) (test code = [facility], 1538) 03197: Medical Numerical Control Operator/Techni daniel ID = [id number] for Jeannette Harris C. DIFFICILE GDH [id number] 11:29:15 Test Item Value Reference Range Interpretation Comments CDT TOXIN (test code Negative Negative = [id number]) CDT GDH ANTIGEN (test Negative Negative No ind ication of code = [id number]) Clostridi um difficile infection and n o colonization. Discontinue ent maria isolation and t herapy. Testing performed by [employer] Rapid Cassette Assay. For GDH, published sensitivity of the assay is 98.7% compared to cytotoxicity testing. For Toxin AB, published sensitivity is 87.8% and specificity 99.4% compared to cytotoxicity testing.Verification of kit performance was done by the [facility] MicrobiologyLab prior to clinical use.POCT-GLUCOSE [id number] 08:12:52 Test Item Value Reference Range Interpretation Comments POC-GLUCOSE METER 100 mg/dL 70-110 : TESTED A T [facility] 6720 ([facility]) (test code = [facility], 1538) 62573: Medical Numerical Control Operator/Techni daniel ID = [id number] for Jeannette Haq POCT-GLUCOSE [id number] 05:47:56 Test Item Value Reference Range Interpretation Comments POC-GLUCOSE METER 101 mg/dL 70-110 : TESTED A T [facility] ([employer]) (test code = [facility], 1538) 82500: Medical Numerical Control Operator/Techni daniel ID = [id number] for ZAIN LANGLEY POCT-GLUCOSE [id number] 01:44:07 Test Item Value Reference Range Interpretation Comments POC-GLUCOSE METER 110 mg/dL 70-110 : TESTED A T [facility] 6720 (BEAKER) (test code = [facility], 153) 57169: Medical Numerical Control Operator/Techni daniel ID = [id number] for LEONID FALCON POCT-GLUCOSE [id number] 20:51:49 Test Item Value Reference Range Interpretation Comments POC-GLUCOSE METER 80 mg/dL 70-110 : TESTED A T [facility] 6720 (BEAKER) (test code [facility], [address]: = 1538) Medical Numerical Control Operator/Techni daniel ID = [id number] for Clint Juarezi POCT-GLUCOSE [id number] 17:07:43 Test Item Value Reference Range Interpretation Comments POC-GLUCOSE METER 83 mg/dL 70-110 : [facility] A T [facility] 6720 [facility] (test code = [facility], 153) 93590: Medical Numerical Control Operator/Techni daniel ID = [id number] for Past ran, Michelle POCT-GLUCOSE [id number] 16:16:35 Test Item Value Reference Range Interpretation Comments POC-GLUCOSE METER 58 mg/dL 70-110 L : TESTED A T [facility] 6720 (BEAKER) (test code = [facility], 153) 63632: Medical Numerical Control Operator/Techni daniel ID = [id number] for ECAT , VERO POCT-GLUCOSE [id number] 15:03:46 Test Item Value Reference Range Interpretation Comments POC-GLUCOSE METER 74 mg/dL 70-110 : TESTED A T [facility] 6720 (BEAKER) (test code = [facility], 153) [id number]: Medical Numerical Control Operator/Techni daniel ID = [id number] for Ball erda, mikala Denisa [id number] 14:48:41 Test Item Value Reference Range Interpretation Comments RPR SCREEN (BEAKER) (test code = Nonreactive Nonreactive 420) POCT-GLUCOSE [id number] 12:40:24 Test Item Value Reference Range Interpretation Comments POC-GLUCOSE METER 74 mg/dL 70-110 : TESTED A T [facility] 6720 (BEAKER) (test code = [facility] [place], 1538) [address]: Medical Numerical Control Operator/Techni daniel ID = [id number] for Ricardo Black POCT-GLUCOSE [id number] 08:17:31 Test Item Value Reference Range Interpretation Comments POC-GLUCOSE METER 69 mg/dL 70-110 L : TESTED A T [facility] 6720 (BEAKER) (test code = ANIL Brown [facility], 1538) [address]: Medical Numerical Control Operator/Techni daniel ID = [id number] for KATHARINE WHITE BASIC METABOLIC [id number] 05:05:47 Test Item Value Reference Range Interpretation Comments SODIUM (BEAKER) 139 meq/L 136-145 (test code = 381) POTASSIUM 3.3 meq/L 3.5-5.1 L (BEAKER) (test code = 379) CHLORIDE (BEAKER) 112 meq/L 98-107 H (test code = 382) CO2 (BEAKER) 17 meq/L 22-29 L (test code = 355) BLOOD UREA 41 mg/dL 7-21 H NITROGEN (BEAKER) (test code = 354) CREATININE 10.10 mg/dL 0.57-1.25 H (BEAKER) (test code = 358) GLUCOSE RANDOM 76 mg/dL 70-105 (BEAKER) (test code = 652) CALCIUM (BEAKER) 8.8 mg/dL 8.4-10.2 (test code = 697) EGFR (BEAKER) 4 Interpretatio n of eGFR (test code = mL/min/1.73 values Stage De scription 1092) sq m Result G1 Henrry l or high >=90 G2 Mildly decreased 60-89 G3a Mildl y to moderately 45-5 9 G3b Moderately to s everely 30-44 G4 Severl y decreased 15-29 G5 Kidney failure <15Reported eGF R is based on the CKD-EPI 2021 equation that d oes not use a race coefficientEsti mated GFR is not as accur ate as Creatinine Sherice elizondo in predicting glom erular filtration rate . Estimated GFR is not appl icable for dialysis patien ts Medical Numerical Control Operator ID - [id number] 04:24:21 Test Item Value Reference Range Interpretation Comments MAGNESIUM (BEAKER) (test code = 2.1 mg/dL 1.6-2.6 627) Medical Numerical Control Operator ID - EOOCBC W/PLT COUNT & AUTO [id number] 04:06:45 Test Item Value Reference Range Interpretation Comments WHITE BLOOD CELL COUNT (BEAKER) 3.9 K/ L 3.5-10.5 (test code = 775) RED BLOOD CELL COUNT (BEAKER) 2.95 M/ L 3.93-5.22 L (test code = 761) HEMOGLOBIN (BEAKER) (test code = 10.4 GM/DL 11.2-15.7 L 410) HEMATOCRIT (BEAKER) (test code = 32.2 % 34.1-44.9 L 411) MEAN CORPUSCULAR VOLUME (BEAKER) 109 fL 79-95 H (test code = 753) MEAN CORPUSCULAR HEMOGLOBIN 35.3 pg 25.6-32.2 H (BEAKER) (test code = 751) MEAN CORPUSCULAR HEMOGLOBIN CONC 32.3 GM/DL 32.2-35.5 (BEAKER) (test code = 752) RED CELL DISTRIBUTION WIDTH 13.2 % 11.7-14.4 (BEAKER) (test code = 412) PLATELET COUNT (BEAKER) (test code 90 K/CU MM 150-450 L = 756) MEAN PLATELET VOLUME (BEAKER) 11.5 fL 9.4-12.3 (test code = 754) NUCLEATED RED BLOOD CELLS (BEAKER) 0 /100 WBC 0-0 (test code = 413) NEUTROPHILS RELATIVE PERCENT 31 % (BEAKER) (test code = 429) LYMPHOCYTES RELATIVE PERCENT 57 % (BEAKER) (test code = 430) MONOCYTES RELATIVE PERCENT 10 % (BEAKER) (test code = 431) EOSINOPHILS RELATIVE PERCENT 1 % (BEAKER) (test code = 432) BASOPHILS RELATIVE PERCENT 1 % (BEAKER) (test code = 437) NEUTROPHILS ABSOLUTE COUNT 1.22 K/ L 1.56-6.13 L (BEAKER) (test code = 670) LYMPHOCYTES ABSOLUTE COUNT 2.22 K/ L 1.18-3.74 (BEAKER) (test code = 414) MONOCYTES ABSOLUTE COUNT (BEAKER) 0.37 K/ L 0.24-0.36 H (test code = 415) EOSINOPHILS ABSOLUTE COUNT 0.05 K/ L 0.04-0.36 (BEAKER) (test code = 416) BASOPHILS ABSOLUTE COUNT (BEAKER) 0.02 K/ L 0.01-0.08 (test code = 417) IMMATURE GRANULOCYTES-RELATIVE 0.30 % 0.00-1.00 PERCENT ([facility]) (test code = 2801) POCT-GLUCOSE [id number] 00:55:36 Test Item Value Reference Range Interpretation Comments POC-GLUCOSE METER 118 mg/dL 70-110 H : TESTED A T [facility] 6720 ([facility]) (test code = [facility], 153) [address]: Medical Numerical Control Operator/Techni daniel ID = [id number] for KATHARINE PRITCHETT POCT-GLUCOSE [id number] 00:09:16 Test Item Value Reference Range Interpretation Comments POC-GLUCOSE METER 60 mg/dL 70-110 L : Notified RN/MD: TESTED ([facility]) [facility] [address] [place] [address]) [facility], [facility] 30: Medical Numerical Control Operator/Techni daniel ID = [id number] for JESSICA HELMS POCT-GLUCOSE [id number] 21:11:59 Test Item Value Reference Range Interpretation Comments POC-GLUCOSE METER 82 mg/dL 70-110 : TESTED A T [facility] 6720 ([facility]) (test code = [facility], 1538) [address]: Medical Numerical Control Operator/Techni daniel ID = [id number] for JESSICA HELMS POCT-GLUCOSE [id number] 18:30:02 Test Item Value Reference Range Interpretation Comments POC-GLUCOSE METER 92 mg/dL 70-110 : TESTED A T [facility] 6720 ([facility]) (test code = [facility], 1538) [address]: Medical Numerical Control Operator/Techni daniel ID = [id number] for More no, Suni POCT-GLUCOSE [id number] 18:05:09 Test Item Value Reference Range Interpretation Comments POC-GLUCOSE METER 68 mg/dL 70-110 L : TESTED A T [facility] 6720 ([facility]) (test code = [facility], 1538) [address]: Medical Numerical Control Operator/Techni daniel ID = [id number] for More no, Suni POCT-GLUCOSE [id number] 12:52:40 Test Item Value Reference Range Interpretation Comments POC-GLUCOSE METER 70 mg/dL 70-110 : TESTED A T [facility] 6720 ([facility]) (test code = [facility] [place], 1538) [address]: Medical Numerical Control Operator/Techni daniel ID = [id number] for Amad or, Rd POCT-GLUCOSE [id number] 09:32:57 Test Item Value Reference Range Interpretation Comments POC-GLUCOSE METER 71 mg/dL 70-110 : TESTED A T [facility] 6720 (BEAKER) (test code = ANIL Brown [facility], 1538) 529[address]: Medical Numerical Control Operator/Techni daniel ID = [id number] for More no, Suni BASIC METABOLIC [id number] 04:49:24 Test Item Value Reference Range Interpretation Comments SODIUM (BEAKER) 137 meq/L 136-145 (test code = 381) POTASSIUM 3.3 meq/L 3.5-5.1 L (BEAKER) (test code = 379) CHLORIDE (BEAKER) 106 meq/L 98-107 (test code = 382) CO2 (BEAKER) 19 meq/L 22-29 L (test code = 355) BLOOD UREA 42 mg/dL 7-21 H NITROGEN (BEAKER) (test code = 354) CREATININE 8.43 mg/dL 0.57-1.25 H (BEAKER) (test code = 358) GLUCOSE RANDOM 74 mg/dL 70-105 (BEAKER) (test code = 652) CALCIUM (BEAKER) 9.0 mg/dL 8.4-10.2 (test code = 697) EGFR (BEAKER) 5 Interpretatio n of eGFR (test code = mL/min/1.73 values Stage De scription 1092) sq m Result G1 Henrry l or high >=90 G2 Mildly decreased 60-89 G3a Mildl y to moderately 45-5 9 G3b Moderately to s everely 30-44 G4 Severl y decreased 15-29 G5 Kidney failure <15Reported eGF R is based on the CKD-EPI 2021 equation that d oes not use a race coefficientEsti mated GFR is not as accur ate as Creatinine Sherice elizondo in predicting glom erular filtration rate . Estimated GFR is not appl icable for dialysis patien ts Medical Numerical Control Operator ID - CHARIS [id number] 04:37:51 Test Item Value Reference Range Interpretation Comments MAGNESIUM (BEAKER) (test code = 2.2 mg/dL 1.6-2.6 627) Medical Numerical Control Operator ID - CHARIS BCBC W/PLT COUNT & AUTO [id number] 04:19:12 Test Item Value Reference Range Interpretation Comments WHITE BLOOD CELL COUNT (BEAKER) 4.9 K/ L 3.5-10.5 (test code = 775) RED BLOOD CELL COUNT (BEAKER) 2.93 M/ L 3.93-5.22 L (test code = 761) HEMOGLOBIN (BEAKER) (test code = 10.5 GM/DL 11.2-15.7 L 410) HEMATOCRIT (BEAKER) (test code = 31.9 % 34.1-44.9 L 411) MEAN CORPUSCULAR VOLUME (BEAKER) 109 fL 79-95 H (test code = 753) MEAN CORPUSCULAR HEMOGLOBIN 35.8 pg 25.6-32.2 H (BEAKER) (test code = 751) MEAN CORPUSCULAR HEMOGLOBIN CONC 32.9 GM/DL 32.2-35.5 (BEAKER) (test code = 752) RED CELL DISTRIBUTION WIDTH 13.1 % 11.7-14.4 (BEAKER) (test code = 412) PLATELET COUNT (BEAKER) (test code 96 K/CU MM 150-450 L = 756) MEAN PLATELET VOLUME (BEAKER) 11.4 fL 9.4-12.3 (test code = 754) NUCLEATED RED BLOOD CELLS (BEAKER) 0 /100 WBC 0-0 (test code = 413) NEUTROPHILS RELATIVE PERCENT 28 % (BEAKER) (test code = 429) LYMPHOCYTES RELATIVE PERCENT 62 % (BEAKER) (test code = 430) MONOCYTES RELATIVE PERCENT 8 % (BEAKER) (test code = 431) EOSINOPHILS RELATIVE PERCENT 1 % (BEAKER) (test code = 432) BASOPHILS RELATIVE PERCENT 1 % (BEAKER) (test code = 437) NEUTROPHILS ABSOLUTE COUNT 1.34 K/ L 1.56-6.13 L (BEAKER) (test code = 670) LYMPHOCYTES ABSOLUTE COUNT 3.04 K/ L 1.18-3.74 (BEAKER) (test code = 414) MONOCYTES ABSOLUTE COUNT (BEAKER) 0.41 K/ L 0.24-0.36 H (test code = 415) EOSINOPHILS ABSOLUTE COUNT 0.05 K/ L 0.04-0.36 (BEAKER) (test code = 416) BASOPHILS ABSOLUTE COUNT ([facility]) 0.03 K/ L 0.01-0.08 (test code = 417) IMMATURE GRANULOCYTES-RELATIVE 0.20 % 0.00-1.00 PERCENT ([facility]) (test code = 2801) POCT-GLUCOSE [id number] 04:04:36 Test Item Value Reference Range Interpretation Comments POC-GLUCOSE METER 74 mg/dL 70-110 : TESTED A T [facility] 6720 ([facility]) (test code = [facility] Nithya [facility], 1538) [address]: Medical Numerical Control Operator/Techni daniel ID = [id number] for TOLO , NEFTALI POCT-GLUCOSE [id number] 01:32:26 Test Item Value Reference Range Interpretation Comments POC-GLUCOSE METER 106 mg/dL 70-110 : TESTED A T [facility] 67[facility] ([facility]) (test code = [facility], 1538) 06[address]: Medical Numerical Control Operator/Techni daniel ID = [id number] for AURA DAVENPORT POCT-GLUCOSE [id number] 00:47:22 Test Item Value Reference Range Interpretation Comments POC-GLUCOSE METER 69 mg/dL 70-110 L : Notified RN/MD: TESTED ([facility]) (test code = AT [facility] 6720 [facility] [place] 1538) [facility], 770 30: Medical Numerical Control Operator/Techni daniel ID = [id number] for JESSICA HELMS POCT-GLUCOSE [id number] 20:11:19 Test Item Value Reference Range Interpretation Comments POC-GLUCOSE METER 75 mg/dL 70-110 : TESTED A [facility] 6720 ([facility]) (test code = [facility], 1538) [address]: Medical Numerical Control Operator/Techni daniel ID = [id number] for TOLO , NEFTALI MR BRAIN WITHOUT IV [id number] 19:40:08 [facility] : 1965 Sex: FMR BRAIN WITHOUT IV CONTRASTINDICATION: Mental status change, unknown causeTECHNIQUE: Multiplanar, multisequence MR imaging of the brain wasobtained.COMPARISON: 08/18/2021FINDINGS:Unchanged volume loss is present lobe pallidus bilaterally, suggestiveof remote metabolic and/or toxic injury (such as carbon monoxide).Norestricted diffusion to suggest recent ischemic insult. No abnormalsusceptibility.Scattered T2/FLAIR hyperintense foci within the periventricular andsubcortical white matter are nonspecific, however, statisticallyrepresent chronic microvascular ischemic changes.No hydrocephalus.Orbitsare within normal limits.No obstructive paranasal sinus disease.IMPRESSION:1. Unchanged volume loss is present lobe pallidus bilaterally,suggestive of remote metabolic and/or toxic injury (such as carbo nmonoxide).2. Otherwise, no acute intracranial findings.Electronically Signed By: Ruth Benítez09/30/2022 19:42 CDTWorkstation Name: [id number] [id number] 18:20:56 Test Item Value Reference Range Interpretation Comments POC-GLUCOSE METER 93 mg/dL 70-110 : TESTED A T [facility] 6720 (Darby SmartAKER) (test code = [facility], 1538) [address]: Medical Numerical Control Operator/Techni daniel ID = [id number] for JAIS E (V), JOSHLIN POCT-GLUCOSE [id number] 18:03:34 Test Item Value Reference Range Interpretation Comments POC-GLUCOSE METER 62 mg/dL 70-110 L : TESTED A T [facility] 6720 (Darby SmartAKER) (test code = [facility], 1538) 96[address]: Medical Numerical Control Operator/Techni daniel ID = [id number] for JAIS E (V), JOSHLIN HEPATITIS B SURFACE [id number] 15:40:19 Test Item Value Reference Range Interpretation Comments HEPATITIS B SURFACE ANTIGEN (2) Nonreactive Nonreactive (AKER) (test code = 2585) Specimen is considered negative for HBsAg.POCT-GLUCOSE [id number] 15:34:21 Test Item Value Reference Range Interpretation Comments POC-GLUCOSE METER 73 mg/dL 70-110 : TESTED A T [facility] 6720 (BEAKER) (test code = AN[place], 1538) [address]: Medical Numerical Control Operator/Techni daniel ID = [id number] for HAMLET MENDOZA HIV-1 ANTIGEN WITH HIV-1/2 [id number] 12:25:51 Test Item Value Reference Range Interpretation Comments HIV-1 ANTIGEN WITH HIV 1\T\2 Nonreactive Nonreactive ANTIBODY (2) (BEAKER) (test code = 2586) Medical Numerical Control Operator ID - CHARIS BTSH/FREE T4 IF [id number] 08:12:40 Test Item Value Reference Range Interpretation Comments THYROID STIMULATING HORMONE 1.071 uIU/mL 0.350-4.940 (BEAKER) (test code = 772) Medical Numerical Control Operator ID - MARCOVITAMIN [id number] 08:12:39 Test Item Value Reference Range Interpretation Comments VITAMIN B12 (BEAKER) (test code = 1519 pg/mL 213-816 H 774) Medical Numerical Control Operator ID - MARCOCOMPREHENSIVE METABOLIC [id number] 08:08:58 Test Item Value Reference Range Interpretation Comments TOTAL PROTEIN 6.8 gm/dL 6.0-8.3 (BEAKER) (test code = 770) ALBUMIN (BEAKER) 3.3 g/dL 3.5-5.0 L (test code = 1145) ALKALINE 91 U/L 40-150 PHOSPHATASE (BEAKER) (test code = 346) BILIRUBIN TOTAL 0.4 mg/dL 0.2-1.2 (BEAKER) (test code = 377) SODIUM (BEAKER) 135 meq/L 136-145 L (test code = 381) POTASSIUM (BEAKER) 4.2 meq/L 3.5-5.1 (test code = 379) CHLORIDE (BEAKER) 101 meq/L 98-107 (test code = 382) CO2 (BEAKER) (test 21 meq/L 22-29 L code = 355) BLOOD UREA 38 mg/dL 7-21 H NITROGEN (BEAKER) (test code = 354) CREATININE 7.73 mg/dL 0.57-1.25 H (BEAKER) (test code = 358) GLUCOSE RANDOM 75 mg/dL 70-105 (BEAKER) (test code = 652) CALCIUM (BEAKER) 10.2 mg/dL 8.4-10.2 (test code = 697) AST (SGOT) 11 U/L 5-34 (BEAKER) (test code = 353) ALT (SGPT) < U/L 6-55 L (BEAKER) (test code = 347) EGFR (BEAKER) 6 Interpretatio n of eGFR (test code = 1092) mL/min/1.[address] age Description sq m Result G1 Henrry l or high >=90 G2 Mildly decreased 60-89 G3a Mildl y to moderately 45-5 9 G3b Moderately to s everely 30-44 G4 Severl y decreased 15-29 G5 Kidney failure <15Reported eGF R is based on the CKD-EPI 2020 equation that d oes not use a race coefficientEsti mated GFR is not as accur ate as Creatinine Sherice mikhail in predicting glom erular filtration rate . Estimated GFR is not appl icable for dialysis patien ts Medical Numerical Control Operator ID - MARCOVALPROIC ACID LEVEL, [id number] 08:08:58 Test Item Value Reference Range Interpretation Comments VALPROIC ACID TOTAL (BEAKER) (test 57 ug/mL 50-100 code = 924) Therapeutic range for some clinical conditions may be >100 ug/mLCORTISOL 2022-09-30 08:05:37 Test Item Value Reference Range Interpretation Comments CORTISOL, TOTAL (BEAKER) (test 29.1 ug/dL 3.7-19.4 H code = 2755) Medical Numerical Control Operator ID - [id number] 07:47:00 Test Item Value Reference Range Interpretation Comments MAGNESIUM (BEAKER) (test code = 2.4 mg/dL 1.6-2.6 627) Medical Numerical Control Operator ID - MARCOLACTIC ACID, [id number] 07:41:14 Test Item Value Reference Range Interpretation Comments LACTATE BLOOD VENOUS 1.11 mmol/L 0.50-2.00 Specime n slightly (2) (BEAKER) (test hemolyzed code = 2505) Medical Numerical Control Operator ID - MARCOCBC W/PLT COUNT & AUTO [id number] 07:32:48 Test Item Value Reference Range Interpretation Comments WHITE BLOOD CELL COUNT (BEAKER) 4.1 K/ L 3.5-10.5 (test code = 775) RED BLOOD CELL COUNT (BEAKER) 3.77 M/ L 3.93-5.22 L (test code = 761) HEMOGLOBIN (BEAKER) (test code = 13.4 GM/DL 11.2-15.7 410) HEMATOCRIT (BEAKER) (test code = 41.0 % 34.1-44.9 411) MEAN CORPUSCULAR VOLUME (BEAKER) 109 fL 79-95 H (test code = 753) MEAN CORPUSCULAR HEMOGLOBIN 35.5 pg 25.6-32.2 H (BEAKER) (test code = 751) MEAN CORPUSCULAR HEMOGLOBIN CONC 32.7 GM/DL 32.2-35.5 (BEAKER) (test code = 752) RED CELL DISTRIBUTION WIDTH 13.2 % 11.7-14.4 (BEAKER) (test code = 412) PLATELET COUNT (BEAKER) (test 133 K/CU MM 150-450 L code = 756) MEAN PLATELET VOLUME (BEAKER) 11.5 fL 9.4-12.3 (test code = 754) NUCLEATED RED BLOOD CELLS 0 /100 WBC 0-0 (BEAKER) (test code = 413) NEUTROPHILS RELATIVE PERCENT 66 % (BEAKER) (test code = 429) LYMPHOCYTES RELATIVE PERCENT 31 % (BEAKER) (test code = 430) MONOCYTES RELATIVE PERCENT 2 % (BEAKER) (test code = 431) EOSINOPHILS RELATIVE PERCENT 0 % (BEAKER) (test code = 432) BASOPHILS RELATIVE PERCENT 1 % (BEAKER) (test code = 437) NEUTROPHILS ABSOLUTE COUNT 2.66 K/ L 1.56-6.13 (BEAKER) (test code = 670) LYMPHOCYTES ABSOLUTE COUNT 1.26 K/ L 1.18-3.74 (BEAKER) (test code = 414) MONOCYTES ABSOLUTE COUNT (BEAKER) 0.08 K/ L 0.24-0.36 L (test code = 415) EOSINOPHILS ABSOLUTE COUNT 0.00 K/ L 0.04-0.36 L (BEAKER) (test code = 416) BASOPHILS ABSOLUTE COUNT (BEAKER) 0.02 K/ L 0.01-0.08 (test code = 417) IMMATURE GRANULOCYTES-RELATIVE 0.70 % 0.00-1.00 PERCENT (BEAKER) (test code = 2801) POCT-GLUCOSE [id number] 07:17:46 Test Item Value Reference Range Interpretation Comments POC-GLUCOSE METER 86 mg/dL 70-110 : TESTED A T [facility] 6720 [facility] (test code = ANIL Brown [facility], 1538) [address]: Medical Numerical Control Operator/Techni daniel ID = [id number] for NEFTALI MENDOZA POCT-GLUCOSE [id number] 00:20:23 Test Item Value Reference Range Interpretation Comments POC-GLUCOSE METER 112 mg/dL 70-110 H : Notified RN/MD: (CARLY) (test code = TESTED AT [facility] 6720 1538) DASHAWN [facility], [address]: Medical Numerical Control Operator/Techni daniel ID = [id number] for Panda Diana POCT-GLUCOSE [id number] 22:11:17 Test Item Value Reference Range Interpretation Comments POC-GLUCOSE METER 210 mg/dL 70-110 H : Notified RN/MD: TESTED (CARLY) (test code AT [facility] 6720 [facility] [place] = 1538) [facility], 770 30: Medical Numerical Control Operator/Techni daniel ID = [id number] for Janay De La Torre [id number] 18:15:46 Test Item Value Reference Range Interpretation [...] tibia. Derrick López MD On 07/15/2022 13:14:39; [id number] [place] [id number] 18:15:46 Test Item Value Reference Range Interpretation [...] tibia. Derrick López MD On 07/15/2022 13:14:39; [id number] [id number] 18:15:46 Test Item Value Reference Range Interpretation [...] tibia. Derrick López MD On 07/15/2022 13:14:39; [id number] [id number] 18:15:46 Test Item Value Reference Range Interpretation [...] tibia. Derrick López MD On 07/15/2022 13:14:39; [id number] [facility] HospitalTosocwqOVCUZR2666-12-36 18:15:46 Test Item Value Reference Range Interpretation [...] tibia. Derrick López MD On 07/15/2022 13:14:39; [id number] [facility] ArlingtonEtlepvyPSHEFF5024-73-45 18:15:46 Test Item Value Reference Range Interpretation [...] tibia. Derrick López MD On 07/15/2022 13:14:39; [id number] [place] [address] pwlo9433-30-05 03:10:05 Test Item Value Reference Range Interpretation Comments Ventricular rate (test 59 code = 253) Atrial rate (test code = 59 255) [place] interval (test code = 158 266) QRSD [...] ECG-No previous ECGs available-Electronica lly Signed By Katty MCKEON, [facility] ([id number]) on 06/14/2022 10:10:04 PM [address]2023-03-23 03:10:05 Test Item Value Reference Range Interpretation Comments Ventricular rate (test 59 code = 253) Atrial rate (test code = 59 255) [place] interval (test code = 158 266) QRSD [...] available-Electronica lly Signed By Angela Alaniz MD ([id number]) on 06/14/2022 10:10:04 PM [address]2023-03-23 03:10:05 Test Item Value Reference Range Interpretation Comments Ventricular rate (test 59 code = 253) Atrial rate (test code = 59 255) [place] interval (test code = 158 266) QRSD [...] available-Electronica lly Signed By Angela Alaniz MD ([id number]) on 06/14/2022 10:10:04 PM [facility]MpyngzmqVMEPJT7276-46-52 22:44:17 Test Item Value Reference Range Interpretation [...] humerus. IMPRESSION: No acute cardiopulmonary findings. Fabricio O'Mikal MD On 06/06/2022 17:42:53; [id number] [facility] HospitalHptzgjtUQDBQA5160-37-48 22:44:17 Test Item Value Reference Range Interpretation [...] findings. Fabricio Wiggins MD On 06/06/2022 17:42:53; [id number] [facility] HospitalYqocmuiPZCNRX7161-41-33 22:44:17 Test Item Value Reference Range Interpretation [...] findings. Fabricio Wiggins MD On 06/06/2022 17:42:53; [id number] [facility] HospitalLoeuqpgBDQMVV9673-08-30 22:44:17 Test Item Value Reference Range Interpretation [...] findings. Fabricio Wiggins MD On 06/06/2022 17:42:53; [id number] [facility] ArlingtonVmytmipKVDSCE0725-28-89 22:44:17 Test Item Value Reference Range Interpretation [...] findings. Fabricio Wiggins MD On 06/06/2022 17:42:53; [id number] [facility] HospitalDggvnowUYZSTX2520-71-67 22:44:17 Test Item Value Reference Range Interpretation [...] findings. Fabricio Wiggins MD On 06/06/2022 17:42:53; [id number] [place] [address]-03-14 22:03:00 Test Item Value Reference Range Interpretation Comments HS Troponin I 1 Hr (test code = HS 20 Troponin I 1 Hr) [place] [address]-03-14 22:03:00 Test Item Value Reference Range Interpretation Comments HS Troponin I 0 to 1 Hour Delta (test -4 code = HS Troponin I 0 to 1 Hour Delta) [place] [address]-03-14 22:03:00 Test Item Value Reference Range Interpretation Comments HS Troponin I 1 Hr (test code = HS 20 Troponin I 1 Hr) [place] [address]-03-14 22:03:00 Test Item Value Reference Range Interpretation Comments HS Troponin I 0 to 1 Hour Delta (test -4 code = HS Troponin I 0 to 1 Hour Delta) [place] [address]-03-14 22:03:00 Test Item Value Reference Range Interpretation Comments HS Troponin I 1 Hr (test code = HS 20 Troponin I 1 Hr) [place] [address]-03-14 22:03:00 Test Item Value Reference Range Interpretation Comments HS Troponin I 0 to 1 Hour Delta (test -4 code = HS Troponin I 0 to 1 Hour Delta) [place] [address]-03-14 22:03:00 Test Item Value Reference Range Interpretation Comments HS Troponin I 1 Hr (test code = HS 20 Troponin I 1 Hr) [place] [address]-03-14 22:03:00 Test Item Value Reference Range Interpretation Comments HS Troponin I 0 to 1 Hour Delta (test -4 code = HS Troponin I 0 to 1 Hour Delta) [place] [address]-03-14 22:03:00 Test Item Value Reference Range Interpretation Comments HS Troponin I 1 Hr (test code = HS 20 Troponin I 1 Hr) [place] [address]-03-14 22:03:00 Test Item Value Reference Range Interpretation Comments HS Troponin I 0 to 1 Hour Delta (test -4 code = HS Troponin I 0 to 1 Hour Delta) [place] [address]-03-14 22:03:00 Test Item Value Reference Range Interpretation Comments HS Troponin I 1 Hr (test code = HS 20 Troponin I 1 Hr) [place] [address]-03-14 22:03:00 Test Item Value Reference Range Interpretation Comments HS Troponin I 0 to 1 Hour Delta (test -4 code = HS Troponin I 0 to 1 Hour Delta) [id number]:00 Test Item Value Reference Range Interpretation Comments AGAP (test code = AGAP) 10.9 10.0-20.0 [place] [address]-03-14 21:19:00 Test Item Value Reference Range Interpretation Comments Calcium Lvl (test code = Calcium Lvl) 9.4 8.5-10.5 [place] [address]-03-14 21:19:00 Test Item Value Reference Range Interpretation Comments B/C Ratio (test code = B/C Ratio) 6 1 6-25 [place] [address]-03-14 21:19:00 Test Item Value Reference Range Interpretation Comments Total Protein (test code = Total 7.0 6.4-8.4 Protein) [facility]EkgfevqEYJRONTEA9268-55-37 21:19:00 Test Item Value Reference Range Interpretation Comments Albumin Lvl (test code = Albumin Lvl) 2.6 3.5-5.0 [place] [id number] 21:19:00 Test Item Value Reference Range Interpretation Comments Globulin (test code = Globulin) 4.4 2.7-4.2 [facility]XticxtzPJQPMFHER8057-71-27 21:19:00 Test Item Value Reference Range Interpretation Comments A/G Ratio (test code = A/G Ratio) 0.6 1 0.7-1.6 [facility] HospitalOuzrztwACZCESXTV9370-89-92 21:19:00 Test Item Value Reference Range Interpretation Comments ALT (test code = ALT) no gt See_Comment [Auto mated message] The system which nerated this result transmit sally reference range : <=65. The reference range was not used to interpr et this result as henrry l/abnormal. [facility] HospitalHbfbavpUAUKENMIQ1285-12-42 21:19:00 Test Item Value Reference Range Interpretation Comments AST (test code = AST) 15 See_Comment [Auto mated message] The system which ge nerated this result transmit sally reference range : <=37. The reference range was not used to interpr et this result as henrry l/abnormal. [facility] HospitalBnujwwnQJMBRIJIC1518-54-44 21:19:00 Test Item Value Reference Range Interpretation Comments Alk Phos (test code = Alk Phos) 69 39-136 [facility] HospitalCzhednfNVQBHABWE6484-02-81 21:19:00 Test Item Value Reference Range Interpretation Comments Bili Total (test code = Bili Total) 0.5 0.2-1.3 [facility] HospitalEvranhwEDXJIBNIA2317-52-10 21:19:00 Test Item Value Reference Range Interpretation Comments eGFR (test code = eGFR) 8 [facility] HospitalQnnfqvqMJTWSMGXQ3343-44-21 21:19:00 Test Item Value Reference Range Interpretation Comments Total CK (test code = Total CK) 46 12-191 [facility] HospitalYtvzhawEOUOYWDOG1574-26-05 21:19:00 Test Item Value Reference Range Interpretation Comments BNP (test code = BNP) 70 [facility] HospitalHbadyzfVHEASROWG6465-98-38 21:19:00 Test Item Value Reference Range Interpretation Comments HS Troponin I Baseline (test code = HS 24 Troponin I Baseline) [facility] HospitalZfvotteUOSFNHACAX9073-08-81 21:19:00 Test Item Value Reference Range Interpretation Comments WBC (test code = WBC) 7.2 3.7-10.4 [facility] HospitalLjvulzmQEHHZIJFTD1514-73-69 21:19:00 Test Item Value Reference Range Interpretation Comments RBC (test code = RBC) 3.11 4.20-5.40 [facility] HospitalYiakcpgRJGVGGCZRB7479-29-23 21:19:00 Test Item Value Reference Range Interpretation Comments Hgb (test code = Hgb) 11.2 12.0-16.0 [facility] HospitalErldyiaMXTSUJNPRF5572-98-78 21:19:00 Test Item Value Reference Range Interpretation Comments Hct (test code = Hct) 33.9 36.0-48.0 [facility] HospitalTxjcobiXRFSELCDPC1609-02-21 21:19:00 Test Item Value Reference Range Interpretation Comments MCV (test code = MCV) 109.1 80.0-98.0 [facility] HospitalBogbjssCXADTGZRIE6339-32-59 21:19:00 Test Item Value Reference Range Interpretation Comments MCH (test code = MCH) 36.0 pg 27.0-31.0 [facility] HospitalVwplaudLVJSHRSDH6684-04-34 21:19:00 Test Item Value Reference Range Interpretation Comments Glucose Lvl (test code = Glucose Lvl) 81 70-99 [facility] HospitalMjnfyamIKJLAHIXR5304-49-00 21:19:00 Test Item Value Reference Range Interpretation Comments BUN (test code = BUN) 34 7-22 [facility] HospitalDotzjlbMLPKYGIBL8421-49-00 21:19:00 Test Item Value Reference Range Interpretation Comments Creatinine Lvl (test code = Creatinine 5.94 0.50-1.40 Lvl) [facility] HospitalNdefgcgNOVVPQGBD3101-70-47 21:19:00 Test Item Value Reference Range Interpretation Comments Sodium Lvl (test code = Sodium Lvl) 134 135-145 [facility] HospitalTspyiduDDHJIUSYG5517-84-71 21:19:00 Test Item Value Reference Range Interpretation Comments Potassium Lvl (test code = Potassium 2.9 3.5-5.1 Lvl) [facility] HospitalQqrcifgREZQQOPZP1107-12-32 21:19:00 Test Item Value Reference Range Interpretation Comments Chloride Lvl (test code = Chloride Lvl) 100 95-109 [facility]CkmfskzYFTNCSVTIS5026-53-64 21:19:00 Test Item Value Reference Range Interpretation Comments MCHC (test code = MCHC) 33.0 32.0-36.0 [facility] HospitalZvcmifrURGFOLLAD5238-86-45 21:19:00 Test Item Value Reference Range Interpretation Comments CO2 (test code = CO2) 26 24-32 [facility] HospitalAgdsskfLHQGZLBTR4580-89-24 21:19:00 Test Item Value Reference Range Interpretation Comments AGAP (test code = AGAP) 10.9 10.0-20.0 [facility] HospitalNexlxfsXJTWGZIAE1126-91-10 21:19:00 Test Item Value Reference Range Interpretation Comments Calcium Lvl (test code = Calcium Lvl) 9.4 8.5-10.5 [facility] HospitalJvarmrlLSNREZJXS7144-99-39 21:19:00 Test Item Value Reference Range Interpretation Comments B/C Ratio (test code = B/C Ratio) 6 1 6-25 [facility] HospitalJvsxeycQZDBTUJWE8386-32-09 21:19:00 Test Item Value Reference Range Interpretation Comments Total Protein (test code = Total 7.0 6.4-8.4 Protein) [facility] HospitalQiyhiynJPPPUDMHG9319-04-64 21:19:00 Test Item Value Reference Range Interpretation Comments Albumin Lvl (test code = Albumin Lvl) 2.6 3.5-5.0 [facility] HospitalShuupdmZFVLKPYDM9949-55-89 21:19:00 Test Item Value Reference Range Interpretation Comments Globulin (test code = Globulin) 4.4 2.7-4.2 [facility] HospitalFszeetdOHVKAUWQL6575-95-98 21:19:00 Test Item Value Reference Range Interpretation Comments A/G Ratio (test code = A/G Ratio) 0.6 1 0.7-1.6 [facility] LakeBpwsepqOLFDQINNE2806-72-80 21:19:00 Test Item Value Reference Range Interpretation Comments ALT (test code = ALT) no gt See_Comment [Auto mated message] The system which ge nerated this result transmit sally reference range : <=65. The reference range was not used to interpr et this result as henrry l/abnormal. [facility] LakeFengfcaOANLQQUHM7847-76-32 21:19:00 Test Item Value Reference Range Interpretation Comments AST (test code = AST) 15 See_Comment [Auto mated message] The system which ge nerated this result transmit sally reference range : <=37. The reference range was not used to interpr et this result as henrry l/abnormal. [facility] LakeIobgounZHEARBVCHY5439-07-38 21:19:00 Test Item Value Reference Range Interpretation Comments RDW (test code = RDW) 18.3 11.5-14.5 [facility] LakeEmzyzyqZIPZDGBOF0067-59-76 21:19:00 Test Item Value Reference Range Interpretation Comments Alk Phos (test code = Alk Phos) 69 39-136 [facility] LakeCkjyeclANXKYYIYN8061-72-99 21:19:00 Test Item Value Reference Range Interpretation Comments Bili Total (test code = Bili Total) 0.5 0.2-1.3 [facility] ZqdfwegBBEXOCART1845-30-01 21:19:00 Test Item Value Reference Range Interpretation Comments eGFR (test code = eGFR) 8 [facility] LakeKtxfqimFKVTLAESE3574-21-65 21:19:00 Test Item Value Reference Range Interpretation Comments Total CK (test code = Total CK) 46 12-191 [facility] LakeBarhtpvLGYKRZFOD0871-56-07 21:19:00 Test Item Value Reference Range Interpretation Comments BNP (test code = BNP) 70 [facility] LakeTvfmzyvVVSEBKTPA4013-99-98 21:19:00 Test Item Value Reference Range Interpretation Comments HS Troponin I Baseline (test code = HS 24 Troponin I Baseline) [facility] LakeAabuatwCQTHRFIKKH1497-63-54 21:19:00 Test Item Value Reference Range Interpretation Comments WBC (test code = WBC) 7.2 3.7-10.4 [facility] LakeZtottrkGUQSVCQPBJ9844-41-36 21:19:00 Test Item Value Reference Range Interpretation Comments RBC (test code = RBC) 3.11 4.20-5.40 [facility] HospitalUjamtcnCAKQRWWFWM1888-66-06 21:19:00 Test Item Value Reference Range Interpretation Comments Hgb (test code = Hgb) 11.2 12.0-16.0 [facility] HospitalApchhryFFEAYQJMHN1068-73-51 21:19:00 Test Item Value Reference Range Interpretation Comments Hct (test code = Hct) 33.9 36.0-48.0 [facility] HospitalIhjidocALGZBBEDAR3899-44-77 21:19:00 Test Item Value Reference Range Interpretation Comments Platelet (test code = Platelet) 269 478-450 [facility] HospitalBkxbdbrNRKSUXABAT3000-35-86 21:19:00 Test Item Value Reference Range Interpretation Comments MCV (test code = MCV) 109.1 80.0-98.0 [facility] HospitalIogwjymVKJGXCAZLA0745-19-76 21:19:00 Test Item Value Reference Range Interpretation Comments MCH (test code = MCH) 36.0 pg 27.0-31.0 [facility] HospitalTnhowsrGRQKVQBHSQ1499-39-17 21:19:00 Test Item Value Reference Range Interpretation Comments MCHC (test code = MCHC) 33.0 32.0-36.0 [facility] HospitalFiaeorrTYXSWAIKFM1364-97-51 21:19:00 Test Item Value Reference Range Interpretation Comments RDW (test code = RDW) 18.3 11.5-14.5 [facility] HospitalNjaqaarFNSCYZZQFK2494-17-29 21:19:00 Test Item Value Reference Range Interpretation Comments Platelet (test code = Platelet) 269 362-995 [facility] HospitalMsycotpWJOVVJAELL2255-21-33 21:19:00 Test Item Value Reference Range Interpretation Comments MPV (test code = MPV) 9.4 7.4-10.4 [facility] HospitalQmvjoxzLWICJABDBA2336-92-66 21:19:00 Test Item Value Reference Range Interpretation Comments PT (test code = PT) 14.7 s 12.0-14.7 [facility] HospitalMxvznhxKCBZKROPUC3752-23-58 21:19:00 Test Item Value Reference Range Interpretation Comments INR (test code = INR) 1.15 1 0.87-1.13 [facility] HospitalYjytiwxSWTWJSFOJM4567-30-17 21:19:00 Test Item Value Reference Range Interpretation Comments PTT (test code = PTT) 28.4 s 22.9-35.8 [place] 111103-03-14 21:19:00 Test Item Value Reference Range Interpretation Comments Neutrophils # (test code = Neutrophils 1.7 1.5-8.1 #) [place] 111103-03-14 21:19:00 Test Item Value Reference Range Interpretation Comments MPV (test code = MPV) 9.4 7.4-10.4 [place] [address]-03-14 21:19:00 Test Item Value Reference Range Interpretation Comments Lymphocytes # (test code = Lymphocytes 5.0 1.0-5.5 #) [place] 111103-03-14 21:19:00 Test Item Value Reference Range Interpretation Comments Monocytes # (test code 0.4 See_Comment [Aut omated message] The = Monocytes #) system which generated this result tra nsmitted reference range : <=0.8. The reference r calli was not used to int erpret this result as normal/abnormal . [place] 111103-03-14 21:19:00 Test Item Value Reference Range Interpretation Comments Eosinophils # (test code 0.1 See_Comment [A utomated message] The = Eosinophils #) system whic h generated this result tra nsmitted reference range : <=0.5. The reference r calli was not used to int erpret this result as normal/abnormal . [facility] HospitalLtqykopEVAKHZEKSQ9425-06-92 21:19:00 Test Item Value Reference Range Interpretation Comments Segs (test code = Segs) 22.0 45.0-75.0 [place] 111103-03-14 21:19:00 Test Item Value Reference Range Interpretation Comments Bands (test code = 2.0 See_Comment [Automat ed message] The Bands) system which ge nerated this result transmit sally reference range : <=11.0. The reference r calli was not used to interpr et this result as henrry l/abnormal. [place] 111103-03-14 21:19:00 Test Item Value Reference Range Interpretation Comments Lymphocytes (test code = Lymphocytes) 54.0 20.0-40.0 [place] [address]-03-14 21:19:00 Test Item Value Reference Range Interpretation Comments Monocytes (test code = Monocytes) 6.0 2.0-12.0 [facility] HospitalRsqcyqnDJGGAVELYS0681-74-65 21:19:00 Test Item Value Reference Range Interpretation Comments Eosinophils (test code = 1.0 See_Comment [A utomated message] The Eosinophils) system which ge nerated this result tra nsmitted reference range : <=4.0. The reference r calli was not used to int erpret this result as normal/abnormal . [facility] HospitalMscfmzcWGLMJPUAJZ8647-72-68 21:19:00 Test Item Value Reference Range Interpretation Comments Atypical Lymphs (test code = Atypical 15.0 Lymphs) [place] 111103-03-14 21:19:00 Test Item Value Reference Range Interpretation Comments RBC Morph (test code = Normal (06/06/22 4:19 RBC Morph) PM) [place] 111103-03-14 21:19:00 Test Item Value Reference Range Interpretation Comments PT (test code = PT) 14.7 s 12.0-14.7 [facility] HospitalRsxtbjaWTPTIFICNQ1449-15-78 21:19:00 Test Item Value Reference Range Interpretation Comments Plt Morph (test code = Normal (06/06/22 4:19 Plt Morph) PM) [facility] HospitalRvzveziTHMPCTWORI7006-28-03 21:19:00 Test Item Value Reference Range Interpretation Comments Macrocyte (test code = 2+ *ABN*(06/06/22 Macrocyte) 4:19 PM) [facility] HospitalXdzjtsbZBFXMMVRDM9330-84-42 21:19:00 Test Item Value Reference Range Interpretation Comments Large Plt (test code Moderate *ABN*(06/06/22 = Large Plt) 4:19 PM) [facility] HospitalRksdghuVSTAOTEHSU0133-79-71 21:19:00 Test Item Value Reference Range Interpretation Comments INR (test code = INR) 1.15 1 0.87-1.13 [place] [address]-03-14 21:19:00 Test Item Value Reference Range Interpretation Comments PTT (test code = PTT) 28.4 s 22.9-35.8 [facility] HospitalCuzhjexQUVNNWHESW1352-23-18 21:19:00 Test Item Value Reference Range Interpretation Comments Neutrophils # (test code = Neutrophils 1.7 1.5-8.1 #) [facility] HospitalCtxbxkbQFNEYTJPHY6140-03-47 21:19:00 Test Item Value Reference Range Interpretation Comments Lymphocytes # (test code = Lymphocytes 5.0 1.0-5.5 #) [facility] HospitalAknulwgTUMLJHCJRV0201-65-53 21:19:00 Test Item Value Reference Range Interpretation Comments Monocytes # (test code 0.4 See_Comment [Aut omated message] The = Monocytes #) system which generated this result tra nsmitted reference range : <=0.8. The reference r calli was not used to int erpret this result as normal/abnormal . [facility] HospitalTxpjtanPTLUPKAWGM4807-71-87 21:19:00 Test Item Value Reference Range Interpretation Comments Eosinophils # (test code 0.1 See_Comment [A utomated message] The = Eosinophils #) system whic h generated this result tra nsmitted reference range : <=0.5. The reference r calli was not used to int erpret this result as normal/abnormal . [facility] HospitalViocebwDTGRXFXLWD9499-30-44 21:19:00 Test Item Value Reference Range Interpretation Comments Segs (test code = Segs) 22.0 45.0-75.0 [place] 111103-03-14 21:19:00 Test Item Value Reference Range Interpretation Comments Bands (test code = 2.0 See_Comment [Automat ed message] The Bands) system which ge nerated this result transmit sally reference range : <=11.0. The reference r calli was not used to interpr et this result as henrry l/abnormal. [facility] HospitalVbbkdogNIMNMQMVZS6053-27-92 21:19:00 Test Item Value Reference Range Interpretation Comments Lymphocytes (test code = Lymphocytes) 54.0 20.0-40.0 [place] 111103-03-14 21:19:00 Test Item Value Reference Range Interpretation Comments Monocytes (test code = Monocytes) 6.0 2.0-12.0 [place] 111103-03-14 21:19:00 Test Item Value Reference Range Interpretation Comments Eosinophils (test code = 1.0 See_Comment [A utomated message] The Eosinophils) system which ge nerated this result tra nsmitted reference range : <=4.0. The reference r calli was not used to int erpret this result as normal/abnormal . [facility] HospitalJjxecngZSMNYRFUWB8581-33-35 21:19:00 Test Item Value Reference Range Interpretation Comments Atypical Lymphs (test code = Atypical 15.0 Lymphs) [facility] HospitalLkmvdubBXLGWENWWH4115-00-14 21:19:00 Test Item Value Reference Range Interpretation Comments RBC Morph (test code = Normal (06/06/22 4:19 RBC Morph) PM) [facility] HospitalUnerbcbVVDGQAZYYU3599-92-12 21:19:00 Test Item Value Reference Range Interpretation Comments Plt Morph (test code = Normal (06/06/22 4:19 Plt Morph) PM) [facility] HospitalCbynknjBEXDMOCRDR8148-66-85 21:19:00 Test Item Value Reference Range Interpretation Comments Macrocyte (test code = 2+ *ABN*(06/06/22 Macrocyte) 4:19 PM) [facility] HospitalXiwfpsvXLHVUZZTYL6045-58-62 21:19:00 Test Item Value Reference Range Interpretation Comments Large Plt (test code Moderate *ABN*(06/06/22 = Large Plt) 4:19 PM) [facility] HospitalYajmueqJLBBSYIOM3067-62-42 21:19:00 Test Item Value Reference Range Interpretation Comments Glucose Lvl (test code = Glucose Lvl) 81 70-99 [facility] HospitalZgqwmsmTBJKIEBSS1156-66-95 21:19:00 Test Item Value Reference Range Interpretation Comments BUN (test code = BUN) 34 7-22 [facility] HospitalRprejiqLAUNFUAWQ0750-77-98 21:19:00 Test Item Value Reference Range Interpretation Comments Creatinine Lvl (test code = Creatinine 5.94 0.50-1.40 Lvl) [facility] HospitalZphqaeiUCCIINUZD7610-70-65 21:19:00 Test Item Value Reference Range Interpretation Comments Sodium Lvl (test code = Sodium Lvl) 134 135-145 [facility] HospitalCfjilxvSULRFQMVR9891-84-05 21:19:00 Test Item Value Reference Range Interpretation Comments Potassium Lvl (test code = Potassium 2.9 3.5-5.1 Lvl) [facility] HospitalRyfwqctPNEFXBEHV6988-85-43 21:19:00 Test Item Value Reference Range Interpretation Comments Chloride Lvl (test code = Chloride Lvl) 100 95-109 [facility] HospitalNqpshqjGJQFBHXFO1616-00-19 21:19:00 Test Item Value Reference Range Interpretation Comments CO2 (test code = CO2) 26 24-32 [facility] HospitalBozqedeRUBWDKISP8914-08-34 21:19:00 Test Item Value Reference Range Interpretation Comments AGAP (test code = AGAP) 10.9 10.0-20.0 [place] 815533-03-14 21:19:00 Test Item Value Reference Range Interpretation Comments Calcium Lvl (test code = Calcium Lvl) 9.4 8.5-10.5 [facility] HospitalPnwzromFHWSRHGXB5628-63-77 21:19:00 Test Item Value Reference Range Interpretation Comments B/C Ratio (test code = B/C Ratio) 6 1 6-25 [facility] HospitalSgrsctfVBPWCQMVF7657-42-74 21:19:00 Test Item Value Reference Range Interpretation Comments Total Protein (test code = Total 7.0 6.4-8.4 Protein) [facility] HospitalWeenauyQWYFZMDII2188-54-23 21:19:00 Test Item Value Reference Range Interpretation Comments Albumin Lvl (test code = Albumin Lvl) 2.6 3.5-5.0 [facility] HospitalHmqhhfzVBNNANZVN8463-22-00 21:19:00 Test Item Value Reference Range Interpretation Comments Globulin (test code = Globulin) 4.4 2.7-4.2 [facility] HospitalOezfrlaMDTJHCJHD4178-57-59 21:19:00 Test Item Value Reference Range Interpretation Comments A/G Ratio (test code = A/G Ratio) 0.6 1 0.7-1.6 [facility] HospitalXwrzkqiOBWEDYEXD7776-36-06 21:19:00 Test Item Value Reference Range Interpretation Comments ALT (test code = ALT) no gt See_Comment [Auto mated message] The system which nerated this result transmit sally reference range : <=65. The reference range was not used to interpr et this result as henrry l/abnormal. [facility] LakeZtkwywgIYRKTYTMU4433-76-03 21:19:00 Test Item Value Reference Range Interpretation Comments AST (test code = AST) 15 See_Comment [Auto mated message] The system which ge nerated this result transmit sally reference range : <=37. The reference range was not used to interpr et this result as henrry l/abnormal. [facility] LakeVqcxqzcNLUCWQDAE7043-58-64 21:19:00 Test Item Value Reference Range Interpretation Comments Alk Phos (test code = Alk Phos) 69 39-136 [facility] HospitalEecxlbfWNXMZGKLQ7058-62-64 21:19:00 Test Item Value Reference Range Interpretation Comments Bili Total (test code = Bili Total) 0.5 0.2-1.3 [facility] HospitalGjjpsjmOPGODTOYT4867-56-04 21:19:00 Test Item Value Reference Range Interpretation Comments eGFR (test code = eGFR) 8 [facility] HospitalCsqmtwkHTGJBHQWW5873-99-48 21:19:00 Test Item Value Reference Range Interpretation Comments Total CK (test code = Total CK) 46 12-191 [facility] HospitalUpducvxQQNFOXGWE8741-77-17 21:19:00 Test Item Value Reference Range Interpretation Comments BNP (test code = BNP) 70 [facility] HospitalMuxtzolBMXAZTYKB4605-57-63 21:19:00 Test Item Value Reference Range Interpretation Comments HS Troponin I Baseline (test code = HS 24 Troponin I Baseline) [facility] HospitalAfhmsfzOVHMACPEKN7682-28-84 21:19:00 Test Item Value Reference Range Interpretation Comments WBC (test code = WBC) 7.2 3.7-10.4 [facility] HospitalKvgoifhKMLAMGPNGI3212-38-01 21:19:00 Test Item Value Reference Range Interpretation Comments RBC (test code = RBC) 3.11 4.20-5.40 [facility] HospitalXygudzgHRDIKSMLBA1259-41-91 21:19:00 Test Item Value Reference Range Interpretation Comments Hgb (test code = Hgb) 11.2 12.0-16.0 [facility] HospitalYnurytjKLEZNQTGTF6763-43-38 21:19:00 Test Item Value Reference Range Interpretation Comments Hct (test code = Hct) 33.9 36.0-48.0 [facility] HospitalRjyteczKJRNHSAFAZ2336-78-07 21:19:00 Test Item Value Reference Range Interpretation Comments MCV (test code = MCV) 109.1 80.0-98.0 [facility] HospitalRrsvvucMPPJZUAPRF5215-64-63 21:19:00 Test Item Value Reference Range Interpretation Comments MCH (test code = MCH) 36.0 pg 27.0-31.0 [facility] HospitalQobljrxQSZGBKUFRC5656-97-29 21:19:00 Test Item Value Reference Range Interpretation Comments MCHC (test code = MCHC) 33.0 32.0-36.0 [facility] HospitalYgwalqjWCKPLMQPHV4336-77-73 21:19:00 Test Item Value Reference Range Interpretation Comments RDW (test code = RDW) 18.3 11.5-14.5 [facility] HospitalEmxfhqrRTNHLGABPW5724-14-67 21:19:00 Test Item Value Reference Range Interpretation Comments Platelet (test code = Platelet) 269 133-450 [facility] HospitalOialispCSYOLCKHNG3835-84-61 21:19:00 Test Item Value Reference Range Interpretation Comments MPV (test code = MPV) 9.4 7.4-10.4 [facility] HospitalPxkibldMZSINEKUPX3231-07-75 21:19:00 Test Item Value Reference Range Interpretation Comments PT (test code = PT) 14.7 s 12.0-14.7 [place] 111103-03-14 21:19:00 Test Item Value Reference Range Interpretation Comments INR (test code = INR) 1.15 1 0.87-1.13 [facility] HospitalZftlpfyKMOQZRVWAZ9619-89-09 21:19:00 Test Item Value Reference Range Interpretation Comments PTT (test code = PTT) 28.4 s 22.9-35.8 [place] 111103-03-14 21:19:00 Test Item Value Reference Range Interpretation Comments Neutrophils # (test code = Neutrophils 1.7 1.5-8.1 #) [facility] HospitalQtwhmmdYBVWYJVWHJ8625-28-37 21:19:00 Test Item Value Reference Range Interpretation Comments Lymphocytes # (test code = Lymphocytes 5.0 1.0-5.5 #) [facility] HospitalFmmyshgEETSTOANIC8211-94-88 21:19:00 Test Item Value Reference Range Interpretation Comments Monocytes # (test code 0.4 See_Comment [Aut omated message] The = Monocytes #) system which generated this result tra nsmitted reference range : <=0.8. The reference r calli was not used to int erpret this result as normal/abnormal . [facility] HospitalRvdnajvXXFIQLSXKM6452-74-96 21:19:00 Test Item Value Reference Range Interpretation Comments Eosinophils # (test code 0.1 See_Comment [A utomated message] The = Eosinophils #) system whic h generated this result tra nsmitted reference range : <=0.5. The reference r calli was not used to int erpret this result as normal/abnormal . [facility] HospitalXthepjoLPVRMXGSMW9183-33-67 21:19:00 Test Item Value Reference Range Interpretation Comments Segs (test code = Segs) 22.0 45.0-75.0 [place] 111103-03-14 21:19:00 Test Item Value Reference Range Interpretation Comments Bands (test code = 2.0 See_Comment [Automat ed message] The Bands) system which ge nerated this result transmit sally reference range : <=11.0. The reference r calli was not used to interpr et this result as henrry l/abnormal. [facility] HospitalOhwscwiSRTXBBRJWL4525-16-89 21:19:00 Test Item Value Reference Range Interpretation Comments Lymphocytes (test code = Lymphocytes) 54.0 20.0-40.0 [place] 111103-03-14 21:19:00 Test Item Value Reference Range Interpretation Comments Monocytes (test code = Monocytes) 6.0 2.0-12.0 [place] 111103-03-14 21:19:00 Test Item Value Reference Range Interpretation Comments Eosinophils (test code = 1.0 See_Comment [A utomated message] The Eosinophils) system which ge nerated this result tra nsmitted reference range : <=4.0. The reference r calli was not used to int erpret this result as normal/abnormal . [facility] HospitalUlctowuIBOXGKLJFT9293-23-39 21:19:00 Test Item Value Reference Range Interpretation Comments Atypical Lymphs (test code = Atypical 15.0 Lymphs) [facility] HospitalAcgaoqkOYWJUOKSNN5521-48-07 21:19:00 Test Item Value Reference Range Interpretation Comments RBC Morph (test code = Normal (06/06/22 4:19 RBC Morph) PM) [facility] HospitalYmbsplnJUCBDOPSTN7137-55-47 21:19:00 Test Item Value Reference Range Interpretation Comments Plt Morph (test code = Normal (06/06/22 4:19 Plt Morph) PM) [facility] HospitalUezzedrCZHUTANLCD7232-11-90 21:19:00 Test Item Value Reference Range Interpretation Comments Macrocyte (test code = 2+ *ABN*(06/06/22 Macrocyte) 4:19 PM) [place] 111103-03-14 21:19:00 Test Item Value Reference Range Interpretation Comments Large Plt (test code Moderate *ABN*(06/06/22 = Large Plt) 4:19 PM) [facility]UezjcmpGFFHSVSAX7946-26-81 21:19:00 Test Item Value Reference Range Interpretation Comments Glucose Lvl (test code = Glucose Lvl) 81 70-99 [facility] HospitalQepkqtmLKGFEHVKV0652-70-56 21:19:00 Test Item Value Reference Range Interpretation Comments BUN (test code = BUN) 34 7-22 [facility] HospitalVcefqrhNTWHOBAWW7135-89-92 21:19:00 Test Item Value Reference Range Interpretation Comments Creatinine Lvl (test code = Creatinine 5.94 0.50-1.40 Lvl) [facility] HospitalNdfoexbCSGWHFQOX8145-01-86 21:19:00 Test Item Value Reference Range Interpretation Comments Sodium Lvl (test code = Sodium Lvl) 134 135-145 [facility] HospitalBeulwtvCJTCHZYMZ7182-34-56 21:19:00 Test Item Value Reference Range Interpretation Comments Potassium Lvl (test code = Potassium 2.9 3.5-5.1 Lvl) [facility] HospitalHccztlyMTCLETQIK7427-77-36 21:19:00 Test Item Value Reference Range Interpretation Comments Chloride Lvl (test code = Chloride Lvl) 100 95-109 [facility] HospitalInstsnlGDJAQTLVT5982-69-44 21:19:00 Test Item Value Reference Range Interpretation Comments CO2 (test code = CO2) 26 24-32 [facility] HospitalKawtynzHDYENKOAH3398-08-62 21:19:00 Test Item Value Reference Range Interpretation Comments AGAP (test code = AGAP) 10.9 10.0-20.0 [facility] HospitalEemiikdYYVPFCZFK2722-43-35 21:19:00 Test Item Value Reference Range Interpretation Comments Calcium Lvl (test code = Calcium Lvl) 9.4 8.5-10.5 [facility] HospitalFdjfgyoWSHAWDIOL1194-28-99 21:19:00 Test Item Value Reference Range Interpretation Comments B/C Ratio (test code = B/C Ratio) 6 1 6-25 [facility] HospitalRrmhwajWGQJEXFCJ6162-40-18 21:19:00 Test Item Value Reference Range Interpretation Comments Total Protein (test code = Total 7.0 6.4-8.4 Protein) [facility] HospitalHpzvthrNNTFPNWOU3682-39-38 21:19:00 Test Item Value Reference Range Interpretation Comments Albumin Lvl (test code = Albumin Lvl) 2.6 3.5-5.0 [facility] HospitalFnaaeomCIVSFLZXF9595-11-42 21:19:00 Test Item Value Reference Range Interpretation Comments Globulin (test code = Globulin) 4.4 2.7-4.2 [facility] HospitalQpblictJQTQOKEFF8763-24-22 21:19:00 Test Item Value Reference Range Interpretation Comments A/G Ratio (test code = A/G Ratio) 0.6 1 0.7-1.6 [facility] HospitalNsbqgegYFGZXKMCN1861-14-10 21:19:00 Test Item Value Reference Range Interpretation Comments ALT (test code = ALT) no gt See_Comment [Auto mated message] The system which ge nerated this result transmit sally reference range : <=65. The reference range was not used to interpr et this result as henrry l/abnormal. [facility] LakeLdcwoysYJTSBCPBT0049-92-98 21:19:00 Test Item Value Reference Range Interpretation Comments AST (test code = AST) 15 See_Comment [Auto mated message] The system which ge nerated this result transmit sally reference range : <=37. The reference range was not used to interpr et this result as henrry l/abnormal. [facility] LakeHgqwpkcCTJWWPTIK2316-17-79 21:19:00 Test Item Value Reference Range Interpretation Comments Alk Phos (test code = Alk Phos) 69 39-136 [facility] LakeEaodiygNTIZXBLTI2134-06-01 21:19:00 Test Item Value Reference Range Interpretation Comments Bili Total (test code = Bili Total) 0.5 0.2-1.3 [facility] LakeMuppqjpBGMFIBVLH3717-94-57 21:19:00 Test Item Value Reference Range Interpretation Comments eGFR (test code = eGFR) 8 [facility] LakeHhsbndsOMWAEEJAO7197-42-69 21:19:00 Test Item Value Reference Range Interpretation Comments Total CK (test code = Total CK) 46 12-191 [facility] LakeVkrwlfmTDAPARPZV0582-01-74 21:19:00 Test Item Value Reference Range Interpretation Comments BNP (test code = BNP) 70 [facility] LakeApmiooxFHRBCHUAJ6029-30-08 21:19:00 Test Item Value Reference Range Interpretation Comments HS Troponin I Baseline (test code = HS 24 Troponin I Baseline) [facility]landHpuqeetWWXMXHQTUD5785-35-78 21:19:00 Test Item Value Reference Range Interpretation Comments WBC (test code = WBC) 7.2 3.7-10.4 [facility] LakeQwzihiaZBSNIHBOLN1778-69-24 21:19:00 Test Item Value Reference Range Interpretation Comments RBC (test code = RBC) 3.11 4.20-5.40 [facility] LakeUgupzrgRSLMSRCGUZ2385-54-81 21:19:00 Test Item Value Reference Range Interpretation Comments Hgb (test code = Hgb) 11.2 12.0-16.0 [facility] LakeAnymxkyMITNUSTJMC8204-70-01 21:19:00 Test Item Value Reference Range Interpretation Comments Hct (test code = Hct) 33.9 36.0-48.0 [place] 111103-03-14 21:19:00 Test Item Value Reference Range Interpretation Comments MCV (test code = MCV) 109.1 80.0-98.0 [place] 111103-03-14 21:19:00 Test Item Value Reference Range Interpretation Comments MCH (test code = MCH) 36.0 pg 27.0-31.0 [facility] HospitalKirtnulFSNYGSHUSW3788-98-95 21:19:00 Test Item Value Reference Range Interpretation Comments MCHC (test code = MCHC) 33.0 32.0-36.0 [place] 111103-03-14 21:19:00 Test Item Value Reference Range Interpretation Comments RDW (test code = RDW) 18.3 11.5-14.5 [place] 111103-03-14 21:19:00 Test Item Value Reference Range Interpretation Comments Platelet (test code = Platelet) 269 133-450 [facility] HospitalBiwjzavGNOIBEFVLX6652-95-32 21:19:00 Test Item Value Reference Range Interpretation Comments MPV (test code = MPV) 9.4 7.4-10.4 [facility] HospitalSibzfwiYVKRTJVLGA7023-02-14 21:19:00 Test Item Value Reference Range Interpretation Comments PT (test code = PT) 14.7 s 12.0-14.7 [facility] HospitalNoaiwibUITCQAGAQX6730-84-30 21:19:00 Test Item Value Reference Range Interpretation Comments INR (test code = INR) 1.15 1 0.87-1.13 [facility] HospitalQxgtessSXKYZMZGUR9717-15-73 21:19:00 Test Item Value Reference Range Interpretation Comments PTT (test code = PTT) 28.4 s 22.9-35.8 [place] 111103-03-14 21:19:00 Test Item Value Reference Range Interpretation Comments Neutrophils # (test code = Neutrophils 1.7 1.5-8.1 #) [facility] HospitalAtmsskdMANZFVCSSQ7897-25-36 21:19:00 Test Item Value Reference Range Interpretation Comments Lymphocytes # (test code = Lymphocytes 5.0 1.0-5.5 #) [facility] HospitalVrqaowqHNEBADSNQP5096-30-02 21:19:00 Test Item Value Reference Range Interpretation Comments Monocytes # (test code 0.4 See_Comment [Aut omated message] The = Monocytes #) system which generated this result tra nsmitted reference range : <=0.8. The reference r calli was not used to int erpret this result as normal/abnormal . [facility] HospitalTctgvgsYUVEVRJHYJ4779-14-32 21:19:00 Test Item Value Reference Range Interpretation Comments Eosinophils # (test code 0.1 See_Comment [A utomated message] The = Eosinophils #) system whic h generated this result tra nsmitted reference range : <=0.5. The reference r calli was not used to int erpret this result as normal/abnormal . [facility] HospitalTnopofcWFRMRVTNZH6866-39-49 21:19:00 Test Item Value Reference Range Interpretation Comments Segs (test code = Segs) 22.0 45.0-75.0 [facility] HospitalXtujgtvAVPBHVVWZM2697-03-76 21:19:00 Test Item Value Reference Range Interpretation Comments Bands (test code = 2.0 See_Comment [Automat ed message] The Bands) system which ge nerated this result transmit sally reference range : <=11.0. The reference r calli was not used to interpr et this result as henrry l/abnormal. [facility] HospitalVsonhirYEFVIJVIIZ1929-95-43 21:19:00 Test Item Value Reference Range Interpretation Comments Lymphocytes (test code = Lymphocytes) 54.0 20.0-40.0 [facility] HospitalMvnsmslVHQGEMQVXP6482-05-63 21:19:00 Test Item Value Reference Range Interpretation Comments Monocytes (test code = Monocytes) 6.0 2.0-12.0 [facility] HospitalBwznbxvLXLCLQYUYS5322-54-89 21:19:00 Test Item Value Reference Range Interpretation Comments Eosinophils (test code = 1.0 See_Comment [A utomated message] The Eosinophils) system which ge nerated this result tra nsmitted reference range : <=4.0. The reference r calli was not used to int erpret this result as normal/abnormal . [facility] HospitalPkyfsmmAAWYGJGQUY0235-63-08 21:19:00 Test Item Value Reference Range Interpretation Comments Atypical Lymphs (test code = Atypical 15.0 Lymphs) [place] 111103-03-14 21:19:00 Test Item Value Reference Range Interpretation Comments RBC Morph (test code = Normal (06/06/22 4:19 RBC Morph) PM) [facility] HospitalWzhusotEQJCUVPRHD3321-08-79 21:19:00 Test Item Value Reference Range Interpretation Comments Plt Morph (test code = Normal (06/06/22 4:19 Plt Morph) PM) [facility] HospitalMqqbupkOWRUAKMQPB5848-58-03 21:19:00 Test Item Value Reference Range Interpretation Comments Macrocyte (test code = 2+ *ABN*(06/06/22 Macrocyte) 4:19 PM) [facility] HospitalAistowsBMCBSEAMUT2219-92-61 21:19:00 Test Item Value Reference Range Interpretation Comments Large Plt (test code Moderate *ABN*(06/06/22 = Large Plt) 4:19 PM) [facility] HospitalOttaroxPBJMUUKMV2131-40-20 21:19:00 Test Item Value Reference Range Interpretation Comments Glucose Lvl (test code = Glucose Lvl) 81 70-99 [facility] HospitalMwhoolrSXSKSDWSS7806-68-50 21:19:00 Test Item Value Reference Range Interpretation Comments BUN (test code = BUN) 34 7-22 [facility] HospitalUeatmklHNTWZICOK3538-17-81 21:19:00 Test Item Value Reference Range Interpretation Comments Creatinine Lvl (test code = Creatinine 5.94 0.50-1.40 Lvl) [facility] HospitalZrzqcwkAZJYFCIIS1110-02-82 21:19:00 Test Item Value Reference Range Interpretation Comments Sodium Lvl (test code = Sodium Lvl) 134 135-145 [facility] HospitalNxcumzxDCAEJBWDG2876-16-26 21:19:00 Test Item Value Reference Range Interpretation Comments Potassium Lvl (test code = Potassium 2.9 3.5-5.1 Lvl) [facility] HospitalSgjmyrdWJSZRJDOQ5521-60-37 21:19:00 Test Item Value Reference Range Interpretation Comments Chloride Lvl (test code = Chloride Lvl) 100 95-109 [facility] HospitalPhoigpdQIRAREPOH6928-82-63 21:19:00 Test Item Value Reference Range Interpretation Comments CO2 (test code = CO2) 26 24-32 [facility] HospitalWywyopzSJSHLINIG8170-01-22 21:19:00 Test Item Value Reference Range Interpretation Comments AGAP (test code = AGAP) 10.9 10.0-20.0 [facility] HospitalIizrnazBVNBCLLAH7694-25-26 21:19:00 Test Item Value Reference Range Interpretation Comments Calcium Lvl (test code = Calcium Lvl) 9.4 8.5-10.5 [facility] HospitalQhcrtagMVOQOTOTR7287-70-36 21:19:00 Test Item Value Reference Range Interpretation Comments B/C Ratio (test code = B/C Ratio) 6 1 6-25 [facility] LakeCczddrzKSEWESOSO0916-60-63 21:19:00 Test Item Value Reference Range Interpretation Comments Total Protein (test code = Total 7.0 6.4-8.4 Protein) [facility] LakeUstznfdAKASGNEDW0324-55-31 21:19:00 Test Item Value Reference Range Interpretation Comments Albumin Lvl (test code = Albumin Lvl) 2.6 3.5-5.0 [facility] LakeUfglrzwEGEHMDOAR9934-75-85 21:19:00 Test Item Value Reference Range Interpretation Comments Globulin (test code = Globulin) 4.4 2.7-4.2 [facility] LakeWfftfkqDFREXNRQY8098-27-46 21:19:00 Test Item Value Reference Range Interpretation Comments A/G Ratio (test code = A/G Ratio) 0.6 1 0.7-1.6 [facility] LakeCqnhxlrOPXDCVYVG7668-17-51 21:19:00 Test Item Value Reference Range Interpretation Comments ALT (test code = ALT) no gt See_Comment [Auto mated message] The system which ge nerated this result transmit sally reference range : <=65. The reference range was not used to interpr et this result as henrry l/abnormal. [facility] LakeTsuffdkRLHMILYNO1716-93-01 21:19:00 Test Item Value Reference Range Interpretation Comments AST (test code = AST) 15 See_Comment [Auto mated message] The system which ge nerated this result transmit sally reference range : <=37. The reference range was not used to interpr et this result as henrry l/abnormal. [facility] AsgtidxKDPKULEOQ7639-46-39 21:19:00 Test Item Value Reference Range Interpretation Comments Alk Phos (test code = Alk Phos) 69 39-136 [facility] LakeMhajsxbZSLGVWPWF9579-41-12 21:19:00 Test Item Value Reference Range Interpretation Comments Bili Total (test code = Bili Total) 0.5 0.2-1.3 [facility] LakeQthkilkYSSOXDVKX0096-84-90 21:19:00 Test Item Value Reference Range Interpretation Comments eGFR (test code = eGFR) 8 [facility] LakeYgeitxpZRXLYLSTT4874-24-30 21:19:00 Test Item Value Reference Range Interpretation Comments Total CK (test code = Total CK) 46 12-191 [facility] HospitalWlwklujRJKBAVNIR8971-84-09 21:19:00 Test Item Value Reference Range Interpretation Comments BNP (test code = BNP) 70 [facility] HospitalQavjcflOMWEAICZU0476-51-98 21:19:00 Test Item Value Reference Range Interpretation Comments HS Troponin I Baseline (test code = HS 24 Troponin I Baseline) [facility] HospitalAitbssoQAQAWENXCJ5204-35-85 21:19:00 Test Item Value Reference Range Interpretation Comments WBC (test code = WBC) 7.2 3.7-10.4 [facility] HospitalCwvcrpjFBMVOIVSTC3463-23-83 21:19:00 Test Item Value Reference Range Interpretation Comments RBC (test code = RBC) 3.11 4.20-5.40 [facility] HospitalScctmfyTYZHZFJEGQ4586-77-96 21:19:00 Test Item Value Reference Range Interpretation Comments Hgb (test code = Hgb) 11.2 12.0-16.0 [place] 111103-03-14 21:19:00 Test Item Value Reference Range Interpretation Comments Hct (test code = Hct) 33.9 36.0-48.0 [facility] HospitalJebnjwhMRQQAJTDDG2881-12-76 21:19:00 Test Item Value Reference Range Interpretation Comments MCV (test code = MCV) 109.1 80.0-98.0 [facility] HospitalLyxecvvUUJENECJXK4663-79-65 21:19:00 Test Item Value Reference Range Interpretation Comments MCH (test code = MCH) 36.0 pg 27.0-31.0 [facility] HospitalVcnmahiNPVJIKCFSD4163-59-65 21:19:00 Test Item Value Reference Range Interpretation Comments MCHC (test code = MCHC) 33.0 32.0-36.0 [facility] HospitalTllccnsYTIBFBUZPR6320-80-52 21:19:00 Test Item Value Reference Range Interpretation Comments RDW (test code = RDW) 18.3 11.5-14.5 [place] 111103-03-14 21:19:00 Test Item Value Reference Range Interpretation Comments Platelet (test code = Platelet) 269 133-450 [facility] HospitalZgpjpglRHJIRUNCAS9499-67-32 21:19:00 Test Item Value Reference Range Interpretation Comments MPV (test code = MPV) 9.4 7.4-10.4 [facility] HospitalRofwzdcMHLFLGIIBG7352-38-95 21:19:00 Test Item Value Reference Range Interpretation Comments PT (test code = PT) 14.7 s 12.0-14.7 [facility] HospitalUpzrkzfDZZWPBPAPD5633-12-55 21:19:00 Test Item Value Reference Range Interpretation Comments INR (test code = INR) 1.15 1 0.87-1.13 [facility] HospitalBgbptwwCONJCZEWQE1048-03-47 21:19:00 Test Item Value Reference Range Interpretation Comments PTT (test code = PTT) 28.4 s 22.9-35.8 [place] 111103-03-14 21:19:00 Test Item Value Reference Range Interpretation Comments Neutrophils # (test code = Neutrophils 1.7 1.5-8.1 #) [facility] HospitalBucxmbwIBFACRRCTH3971-22-29 21:19:00 Test Item Value Reference Range Interpretation Comments Lymphocytes # (test code = Lymphocytes 5.0 1.0-5.5 #) [facility] HospitalUwxchflJAXPXCSKFB1292-47-33 21:19:00 Test Item Value Reference Range Interpretation Comments Monocytes # (test code 0.4 See_Comment [Aut omated message] The = Monocytes #) system which generated this result tra nsmitted reference range : <=0.8. The reference r calil was not used to int erpret this result as normal/abnormal . [facility] HospitalYgfuwsdPKUDOWHJAI9614-38-94 21:19:00 Test Item Value Reference Range Interpretation Comments Eosinophils # (test code 0.1 See_Comment [A utomated message] The = Eosinophils #) system whic h generated this result tra nsmitted reference range : <=0.5. The reference r calli was not used to int erpret this result as normal/abnormal . [facility] HospitalEaxoqtfSHCHPVMOVH5985-92-61 21:19:00 Test Item Value Reference Range Interpretation Comments Segs (test code = Segs) 22.0 45.0-75.0 [place] 111103-03-14 21:19:00 Test Item Value Reference Range Interpretation Comments Bands (test code = 2.0 See_Comment [Automat ed message] The Bands) system which ge nerated this result transmit sally reference range : <=11.0. The reference r calli was not used to interpr et this result as henrry l/abnormal. [facility] HospitalDbznxbdJKLPRTMGJX3351-56-76 21:19:00 Test Item Value Reference Range Interpretation Comments Lymphocytes (test code = Lymphocytes) 54.0 20.0-40.0 [facility] HospitalPjytzraUWSPRYIDIK4640-50-24 21:19:00 Test Item Value Reference Range Interpretation Comments Monocytes (test code = Monocytes) 6.0 2.0-12.0 [facility] HospitalEndzuniVXNWMKFRWT6210-66-31 21:19:00 Test Item Value Reference Range Interpretation Comments Eosinophils (test code = 1.0 See_Comment [A utomated message] The Eosinophils) system which ge nerated this result tra nsmitted reference range : <=4.0. The reference r calli was not used to int erpret this result as normal/abnormal . [facility] HospitalVjihdylYUUQQASSTP1487-13-49 21:19:00 Test Item Value Reference Range Interpretation Comments Atypical Lymphs (test code = Atypical 15.0 Lymphs) [facility] HospitalPlkbtfdWZXQCLIPDT7660-40-40 21:19:00 Test Item Value Reference Range Interpretation Comments RBC Morph (test code = Normal (06/06/22 4:19 RBC Morph) PM) [facility] HospitalQszdyomQDHZKOUBIK9439-73-28 21:19:00 Test Item Value Reference Range Interpretation Comments Plt Morph (test code = Normal (06/06/22 4:19 Plt Morph) PM) [facility] HospitalLhvakdbDDHJGGLCSL0305-98-55 21:19:00 Test Item Value Reference Range Interpretation Comments Macrocyte (test code = 2+ *ABN*(06/06/22 Macrocyte) 4:19 PM) [facility] HospitalXwiaxdgEMJYIBCKPT7788-54-50 21:19:00 Test Item Value Reference Range Interpretation Comments Large Plt (test code Moderate *ABN*(06/06/22 = Large Plt) 4:19 PM) [facility] HospitalBapufbuGWVPUIQNQ8779-58-42 21:19:00 Test Item Value Reference Range Interpretation Comments Glucose Lvl (test code = Glucose Lvl) 81 70-99 [facility] HospitalXrvmnafILHQZSFRL3747-62-04 21:19:00 Test Item Value Reference Range Interpretation Comments BUN (test code = BUN) 34 7-22 [facility] HospitalPjbqeqfHJWTGHZBM8646-45-43 21:19:00 Test Item Value Reference Range Interpretation Comments Creatinine Lvl (test code = Creatinine 5.94 0.50-1.40 Lvl) [facility] HospitalZobxvqrNSWLROUZE9493-69-25 21:19:00 Test Item Value Reference Range Interpretation Comments Sodium Lvl (test code = Sodium Lvl) 134 135-145 [place] 815533-03-14 21:19:00 Test Item Value Reference Range Interpretation Comments Potassium Lvl (test code = Potassium 2.9 3.5-5.1 Lvl) [place] [address]-03-14 21:19:00 Test Item Value Reference Range Interpretation Comments Chloride Lvl (test code = Chloride Lvl) 100 95-109 [facility] HospitalMypwrjwVAKYNUZNC0711-24-21 21:19:00 Test Item Value Reference Range Interpretation Comments CO2 (test code = CO2) 26 24-32 [place] [address]-03-14 21:19:00 Test Item Value Reference Range Interpretation Comments AGAP (test code = AGAP) 10.9 10.0-20.0 [facility] HospitalFbjwdhfIIERTZDBS0679-81-07 21:19:00 Test Item Value Reference Range Interpretation Comments Calcium Lvl (test code = Calcium Lvl) 9.4 8.5-10.5 [facility] HospitalMefvckfCTOIGQIEG5076-69-39 21:19:00 Test Item Value Reference Range Interpretation Comments B/C Ratio (test code = B/C Ratio) 6 1 6-25 [facility] HospitalDaibqwcXYJHXCCRK8910-58-18 21:19:00 Test Item Value Reference Range Interpretation Comments Total Protein (test code = Total 7.0 6.4-8.4 Protein) [facility] HospitalUajjoxlATBKKYZCH7336-28-37 21:19:00 Test Item Value Reference Range Interpretation Comments Albumin Lvl (test code = Albumin Lvl) 2.6 3.5-5.0 [facility] HospitalLeiwysuAQFWAJINZ7890-35-71 21:19:00 Test Item Value Reference Range Interpretation Comments Globulin (test code = Globulin) 4.4 2.7-4.2 [place] 815533-03-14 21:19:00 Test Item Value Reference Range Interpretation Comments A/G Ratio (test code = A/G Ratio) 0.6 1 0.7-1.6 [place] [address]-03-14 21:19:00 Test Item Value Reference Range Interpretation Comments ALT (test code = ALT) no gt See_Comment [Auto mated message] The system which ge nerated this result transmit sally reference range : <=65. The reference range was not used to interpr et this result as henrry l/abnormal. [facility] HospitalDldhlumIZLZCYPJP2066-66-45 21:19:00 Test Item Value Reference Range Interpretation Comments AST (test code = AST) 15 See_Comment [Auto mated message] The system which ge nerated this result transmit sally reference range : <=37. The reference range was not used to interpr et this result as henrry l/abnormal. [facility] HospitalKtpuoskVOIHRKORZ7390-56-10 21:19:00 Test Item Value Reference Range Interpretation Comments Alk Phos (test code = Alk Phos) 69 39-136 [facility] HospitalHxcwoljUTYOHAXRW0540-35-87 21:19:00 Test Item Value Reference Range Interpretation Comments Bili Total (test code = Bili Total) 0.5 0.2-1.3 [facility] HospitalTogooshSCJYMLFZP9712-98-95 21:19:00 Test Item Value Reference Range Interpretation Comments eGFR (test code = eGFR) 8 [facility] HospitalAvptfxiUNQBHMPGW7835-06-68 21:19:00 Test Item Value Reference Range Interpretation Comments Total CK (test code = Total CK) 46 12-191 [facility] HospitalHgxpgyzKQYLNNIPX2359-19-72 21:19:00 Test Item Value Reference Range Interpretation Comments BNP (test code = BNP) 70 [facility] HospitalLwvfnznDSVRLBRPQ8114-00-86 21:19:00 Test Item Value Reference Range Interpretation Comments HS Troponin I Baseline (test code = HS 24 Troponin I Baseline) [facility] HospitalItnfqcrLZLAVKPHKY2602-96-34 21:19:00 Test Item Value Reference Range Interpretation Comments WBC (test code = WBC) 7.2 3.7-10.4 [facility] HospitalKrnkgrmHSDLDVAZKA9956-04-92 21:19:00 Test Item Value Reference Range Interpretation Comments RBC (test code = RBC) 3.11 4.20-5.40 [facility] HospitalAcmdufiZNQMQNPJTR2104-77-11 21:19:00 Test Item Value Reference Range Interpretation Comments Hgb (test code = Hgb) 11.2 12.0-16.0 [facility]NqeqrluFCMQNPKOPS2181-80-17 21:19:00 Test Item Value Reference Range Interpretation Comments Hct (test code = Hct) 33.9 36.0-48.0 [facility] HospitalYffnvzsLYEZZMAZIO5036-61-53 21:19:00 Test Item Value Reference Range Interpretation Comments MCV (test code = MCV) 109.1 80.0-98.0 [facility] HospitalJrdfspwQDYQJHYDKX6091-92-78 21:19:00 Test Item Value Reference Range Interpretation Comments MCH (test code = MCH) 36.0 pg 27.0-31.0 [facility] HospitalSbmaqfrIEKUWXLJPP5273-58-82 21:19:00 Test Item Value Reference Range Interpretation Comments MCHC (test code = MCHC) 33.0 32.0-36.0 [place] 111103-03-14 21:19:00 Test Item Value Reference Range Interpretation Comments RDW (test code = RDW) 18.3 11.5-14.5 [facility] HospitalMrgooboLKCETICFXL5352-97-62 21:19:00 Test Item Value Reference Range Interpretation Comments Platelet (test code = Platelet) 269 133-450 [facility] HospitalTflazqcLOEDVOFDHO7663-78-85 21:19:00 Test Item Value Reference Range Interpretation Comments MPV (test code = MPV) 9.4 7.4-10.4 [place] 111103-03-14 21:19:00 Test Item Value Reference Range Interpretation Comments PT (test code = PT) 14.7 s 12.0-14.7 [facility] HospitalGhopjeyBPUGHMEEZY3438-51-20 21:19:00 Test Item Value Reference Range Interpretation Comments INR (test code = INR) 1.15 1 0.87-1.13 [facility] HospitalEshrnmmBSGOEGXOWE6988-20-94 21:19:00 Test Item Value Reference Range Interpretation Comments PTT (test code = PTT) 28.4 s 22.9-35.8 [place] 111103-03-14 21:19:00 Test Item Value Reference Range Interpretation Comments Neutrophils # (test code = Neutrophils 1.7 1.5-8.1 #) [facility] HospitalKchngbbEVDEBYJPBJ7924-25-31 21:19:00 Test Item Value Reference Range Interpretation Comments Lymphocytes # (test code = Lymphocytes 5.0 1.0-5.5 #) [place] 111103-03-14 21:19:00 Test Item Value Reference Range Interpretation Comments Monocytes # (test code 0.4 See_Comment [Aut omated message] The = Monocytes #) system which generated this result tra nsmitted reference range : <=0.8. The reference r calli was not used to int erpret this result as normal/abnormal . [facility] HospitalHeyvzbiRDMZPNGNRX1919-61-39 21:19:00 Test Item Value Reference Range Interpretation Comments Eosinophils # (test code 0.1 See_Comment [A utomated message] The = Eosinophils #) system whic h generated this result tra nsmitted reference range : <=0.5. The reference r calli was not used to int erpret this result as normal/abnormal . [facility] HospitalPyndusbAVSZLQKXGN2494-37-95 21:19:00 Test Item Value Reference Range Interpretation Comments Segs (test code = Segs) 22.0 45.0-75.0 [facility] HospitalWelxhmxONYCMTNEXW6515-06-05 21:19:00 Test Item Value Reference Range Interpretation Comments Bands (test code = 2.0 See_Comment [Automat ed message] The Bands) system which ge nerated this result transmit sally reference range : <=11.0. The reference r calli was not used to interpr et this result as henrry l/abnormal. [facility] HospitalYnwxmsxYPRGOHXJEI5871-42-52 21:19:00 Test Item Value Reference Range Interpretation Comments Lymphocytes (test code = Lymphocytes) 54.0 20.0-40.0 [facility] HospitalUltiiazDGLAUTSDQW6383-03-33 21:19:00 Test Item Value Reference Range Interpretation Comments Monocytes (test code = Monocytes) 6.0 2.0-12.0 [facility] HospitalFdbkqoaZFWAZWXFOW4868-55-07 21:19:00 Test Item Value Reference Range Interpretation Comments Eosinophils (test code = 1.0 See_Comment [A utomated message] The Eosinophils) system which ge nerated this result tra nsmitted reference range : <=4.0. The reference r calli was not used to int erpret this result as normal/abnormal . [facility] HospitalZuefienNUIIIHTKVM0372-74-34 21:19:00 Test Item Value Reference Range Interpretation Comments Atypical Lymphs (test code = Atypical 15.0 Lymphs) [facility] HospitalXjzdrmgPDJIPUZWPI0775-56-87 21:19:00 Test Item Value Reference Range Interpretation Comments RBC Morph (test code = Normal (06/06/22 4:19 RBC Morph) PM) [facility] HospitalPfqogbxKBMFPULYVX1549-24-94 21:19:00 Test Item Value Reference Range Interpretation Comments Plt Morph (test code = Normal (06/06/22 4:19 Plt Morph) PM) [facility] HospitalCmuaucaXSNIYTSUQY8973-18-91 21:19:00 Test Item Value Reference Range Interpretation Comments Macrocyte (test code = 2+ *ABN*(06/06/22 Macrocyte) 4:19 PM) [facility]XjstkybBRBRWVFKHJ2497-21-00 21:19:00 Test Item Value Reference Range Interpretation Comments Large Plt (test code Moderate *ABN*(06/06/22 = Large Plt) 4:19 PM) [facility]NmqimonYQVTAZQLS9474-09-93 21:19:00 Test Item Value Reference Range Interpretation Comments Glucose Lvl (test code = Glucose Lvl) 81 70-99 [facility] HospitalKujmknpGSLYJAMIY4806-15-30 21:19:00 Test Item Value Reference Range Interpretation Comments BUN (test code = BUN) 34 7-22 [facility] HospitalMtmzlxjDQXGCBIHX0932-48-30 21:19:00 Test Item Value Reference Range Interpretation Comments Creatinine Lvl (test code = Creatinine 5.94 0.50-1.40 Lvl) [facility] HospitalEwfibixBBLJGDQFT7830-68-58 21:19:00 Test Item Value Reference Range Interpretation Comments Sodium Lvl (test code = Sodium Lvl) 134 135-145 [facility] HospitalUofyryoSDXIBMKCL6092-63-28 21:19:00 Test Item Value Reference Range Interpretation Comments Potassium Lvl (test code = Potassium 2.9 3.5-5.1 Lvl) [facility] HospitalTikhnkaUQOFBEOJQ2376-45-78 21:19:00 Test Item Value Reference Range Interpretation Comments Chloride Lvl (test code = Chloride Lvl) 100 95-109 [facility] HospitalVrusbdlQIPYDDYMD0224-87-32 21:19:00 Test Item Value Reference Range Interpretation Comments CO2 (test code = CO2) 26 24-32 [facility]TydfzewSQJDHB5687-57-21 03:28:11 Test Item Value Reference Range Interpretation [...] infarcts. Neno Tao MD On 03/28/2022 21:26:59; [id number] [facility]YwwkaecLNQLWG1191-87-49 03:28:11 Test Item Value Reference Range Interpretation [...] infarcts. Neno Tao MD On 03/28/2022 21:26:59; [id number] [facility] ArlingtonSicaqhbUFGMNR4950-80-38 03:28:11 Test Item Value Reference Range Interpretation [...] infarcts. Neno Tao MD On 03/28/2022 21:26:59; [id number] [facility] HospitalXrvikejADQDOU4996-51-35 03:28:11 Test Item Value Reference Range Interpretation [...] infarcts. Neno Tao MD On 03/28/2022 21:26:59; [id number] [facility] ArlingtonVytdwtePNMMLL4414-02-09 03:28:11 Test Item Value Reference Range Interpretation [...] infarcts. Neno Tao MD On 03/28/2022 21:26:59; [id number] [facility] HospitalNgkrisjVTYRXA4949-86-58 03:28:11 Test Item Value Reference Range Interpretation [...] infarcts. Neno Tao MD On 03/28/2022 21:26:59; [id number] [facility]FewrpcmPGARBL8693-98-01 02:38:06 Test Item Value Reference Range Interpretation [...] findings. Herve Drake MD On 03/28/2022 20:36:57; [id number] [facility] ArlingtonMefrcruVCCTVC7754-93-34 02:38:06 Test Item Value Reference Range Interpretation [...] findings. Herve Drake MD On 03/28/2022 20:36:57; [id number] [facility] HospitalRhnioufUODNXW8864-39-66 02:38:06 Test Item Value Reference Range Interpretation [...] findings. Herve Drake MD On 03/28/2022 20:36:57; [id number] [facility] ArlingtonRthfttjWBKCIO4191-02-65 02:38:06 Test Item Value Reference Range Interpretation [...] findings. Herve Drake MD On 03/28/2022 20:36:57; [id number] [facility] ArlingtonFkttpdnBACJNE6830-66-34 02:38:06 Test Item Value Reference Range Interpretation [...] findings. Herve Drake MD On 03/28/2022 20:36:57; [id number] [facility] WqvrmacDNRVJC9958-27-53 02:38:06 Test Item Value Reference Range Interpretation [...] right shoulder.IMPRESSION: No acute cardiopulmonary findings. Herve rDake MD On 03/28/2022 20:36:57; [id number] [facility] [id number] 02:27:00 Test Item Value Reference Range Interpretation Comments UA Color (test code = Light Yellow (03/28/22 UA Color) 8:27 PM) [facility] [id number] 02:27:00 Test Item Value Reference Range Interpretation Comments UA Turbidity (test code Slight *ABN*(03/28/22 = UA Turbidity) 8:27 PM) [facility] [id number] 02:27:00 Test Item Value Reference Range Interpretation Comments UA Sq Epi (test code = UA Sq Epi) Few /LPF [facility] [id number] 02:27:00 Test Item Value Reference Range Interpretation Comments UA WBC (test code = no gt See_Comment [Automa sally message] The UA WBC) system which ge nerated this result transmit sally reference range : <=5. The reference range was not used to interpr et this result as henrry l/abnormal. [facility] [id number] 02:27:00 Test Item Value Reference Range Interpretation Comments UA RBC (test code = 8 See_Comment [Automa sally message] The UA RBC) system which ge nerated this result transmit sally reference range : <=2. The reference range was not used to interpr et this result as henrry l/abnormal. [facility] [id number] 02:27:00 Test Item Value Reference Range Interpretation Comments UA Bacteria (test code = UA Few /HPF Bacteria) [facility] [id number] 02:27:00 Test Item Value Reference Range Interpretation Comments UA Spec Grav (test code = UA Spec 1.015 1 Grav) [facility] [id number] 02:27:00 Test Item Value Reference Range Interpretation Comments UA pH (test code = UA pH) 6.0 1 5.0-8.0 [facility] [id number] 02:27:00 Test Item Value Reference Range Interpretation Comments UA Protein (test code = UA Protein) 100 mg/dL [facility] [id number] 02:27:00 Test Item Value Reference Range Interpretation Comments UA Glucose (test code Negative (03/28/22 8:27 = UA Glucose) PM) [facility] [id number] 02:27:00 Test Item Value Reference Range Interpretation Comments UA Ketones (test code Negative *NA*(03/28/22 = UA Ketones) 8:27 PM) [facility] [id number] 02:27:00 Test Item Value Reference Range Interpretation Comments UA Bili (test code = Negative *NA*(03/28/22 UA Bili) 8:27 PM) [facility] [id number] 02:27:00 Test Item Value Reference Range Interpretation Comments UA Blood (test code = Moderate *ABN*(03/28/22 UA Blood) 8:27 PM) [facility] [id number] 02:27:00 Test Item Value Reference Range Interpretation Comments UA Urobilinogen (test code = UA 0.2 0.1-1.0 Urobilinogen) [facility] [id number] 02:27:00 Test Item Value Reference Range Interpretation Comments UA Nitrite (test code Negative (03/28/22 8:27 = UA Nitrite) PM) [facility] [id number] 02:27:00 Test Item Value Reference Range Interpretation Comments UA Leuk Est (test code Large *ABN*(03/28/22 8:27 = UA Leuk Est) PM) [facility]: [id number] 02:27:00 Test Item Value Reference Range Interpretation Comments Culture: Urine (test code = No Growth Culture: Urine) [facility] [id number] 02:27:00 Test Item Value Reference Range Interpretation Comments UA Color (test code = Light Yellow (03/28/22 UA Color) 8:27 PM) [facility] [id number] 02:27:00 Test Item Value Reference Range Interpretation Comments UA Turbidity (test code Slight *ABN*(03/28/22 = UA Turbidity) 8:27 PM) [facility] [id number] 02:27:00 Test Item Value Reference Range Interpretation Comments UA Sq Epi (test code = UA Sq Epi) Few /LPF [facility] [id number] 02:27:00 Test Item Value Reference Range Interpretation Comments UA WBC (test code = no gt See_Comment [Automa sally message] The UA WBC) system which ge nerated this result transmit sally reference range : <=5. The reference range was not used to interpr et this result as henrry l/abnormal. [facility] [id number] 02:27:00 Test Item Value Reference Range Interpretation Comments UA RBC (test code = 8 See_Comment [Automa sally message] The UA RBC) system which ge nerated this result transmit sally reference range : <=2. The reference range was not used to interpr et this result as henrry l/abnormal. [facility] AND [id number] 02:27:00 Test Item Value Reference Range Interpretation Comments UA Bacteria (test code = UA Few /HPF Bacteria) [facility] AND [id number] 02:27:00 Test Item Value Reference Range Interpretation Comments UA Spec Grav (test code = UA Spec 1.015 1 Grav) [facility] AND [id number] 02:27:00 Test Item Value Reference Range Interpretation Comments UA pH (test code = UA pH) 6.0 1 5.0-8.0 [facility] AND [id number] 02:27:00 Test Item Value Reference Range Interpretation Comments UA Protein (test code = UA Protein) 100 mg/dL [facility] AND [id number] 02:27:00 Test Item Value Reference Range Interpretation Comments UA Glucose (test code Negative (03/28/22 8:27 = UA Glucose) PM) [facility] AND [id number] 02:27:00 Test Item Value Reference Range Interpretation Comments UA Ketones (test code Negative *NA*(03/28/22 = UA Ketones) 8:27 PM) [facility] AND [id number] 02:27:00 Test Item Value Reference Range Interpretation Comments UA Bili (test code = Negative *NA*(03/28/22 UA Bili) 8:27 PM) [facility] AND [id number] 02:27:00 Test Item Value Reference Range Interpretation Comments UA Blood (test code = Moderate *ABN*(03/28/22 UA Blood) 8:27 PM) [facility] AND [id number] 02:27:00 Test Item Value Reference Range Interpretation Comments UA Urobilinogen (test code = UA 0.2 0.1-1.0 Urobilinogen) [facility] AND [id number] 02:27:00 Test Item Value Reference Range Interpretation Comments UA Nitrite (test code Negative (03/28/22 8:27 = UA Nitrite) PM) [facility] AND [id number] 02:27:00 Test Item Value Reference Range Interpretation Comments UA Leuk Est (test code Large *ABN*(03/28/22 8:27 = UA Leuk Est) PM) [facility]: [id number] 02:27:00 Test Item Value Reference Range Interpretation Comments Culture: Urine (test code = No Growth Culture: Urine) [facility] [id number] 02:27:00 Test Item Value Reference Range Interpretation Comments UA Color (test code = Light Yellow (03/28/22 UA Color) 8:27 PM) [facility] [id number] 02:27:00 Test Item Value Reference Range Interpretation Comments UA Turbidity (test code Slight *ABN*(03/28/22 = UA Turbidity) 8:27 PM) [facility] [id number] 02:27:00 Test Item Value Reference Range Interpretation Comments UA Sq Epi (test code = UA Sq Epi) Few /LPF [facility] [id number] 02:27:00 Test Item Value Reference Range Interpretation Comments UA WBC (test code = no gt See_Comment [Automa sally message] The UA WBC) system which ge nerated this result transmit sally reference range : <=5. The reference range was not used to interpr et this result as henrry l/abnormal. [facility] [id number] 02:27:00 Test Item Value Reference Range Interpretation Comments UA RBC (test code = 8 See_Comment [Automa sally message] The UA RBC) system which ge nerated this result transmit sally reference range : <=2. The reference range was not used to interpr et this result as henrry l/abnormal. [facility] [id number] 02:27:00 Test Item Value Reference Range Interpretation Comments UA Bacteria (test code = UA Few /HPF Bacteria) [facility] [id number] 02:27:00 Test Item Value Reference Range Interpretation Comments UA Spec Grav (test code = UA Spec 1.015 1 Grav) [facility] [id number] 02:27:00 Test Item Value Reference Range Interpretation Comments UA pH (test code = UA pH) 6.0 1 5.0-8.0 [facility] [id number] 02:27:00 Test Item Value Reference Range Interpretation Comments UA Protein (test code = UA Protein) 100 mg/dL [facility] [id number] 02:27:00 Test Item Value Reference Range Interpretation Comments UA Glucose (test code Negative (03/28/22 8:27 = UA Glucose) PM) [facility] [id number] 02:27:00 Test Item Value Reference Range Interpretation Comments UA Ketones (test code Negative *NA*(03/28/22 = UA Ketones) 8:27 PM) [facility] AND [id number] 02:27:00 Test Item Value Reference Range Interpretation Comments UA Bili (test code = Negative *NA*(03/28/22 UA Bili) 8:27 PM) [facility] AND [id number] 02:27:00 Test Item Value Reference Range Interpretation Comments UA Blood (test code = Moderate *ABN*(03/28/22 UA Blood) 8:27 PM) [facility] AND [id number] 02:27:00 Test Item Value Reference Range Interpretation Comments UA Urobilinogen (test code = UA 0.2 0.1-1.0 Urobilinogen) [facility] AND [id number] 02:27:00 Test Item Value Reference Range Interpretation Comments UA Nitrite (test code Negative (03/28/22 8:27 = UA Nitrite) PM) [facility] AND [id number] 02:27:00 Test Item Value Reference Range Interpretation Comments UA Leuk Est (test code Large *ABN*(03/28/22 8:27 = UA Leuk Est) PM) [facility] [id number] 02:27:00 Test Item Value Reference Range Interpretation Comments Culture: Urine (test code = No Growth Culture: Urine) [facility] AND [id number] 02:27:00 Test Item Value Reference Range Interpretation Comments UA Color (test code = Light Yellow (03/28/22 UA Color) 8:27 PM) [facility] AND [id number] 02:27:00 Test Item Value Reference Range Interpretation Comments UA Turbidity (test code Slight *ABN*(03/28/22 = UA Turbidity) 8:27 PM) [facility] AND [id number] 02:27:00 Test Item Value Reference Range Interpretation Comments UA Sq Epi (test code = UA Sq Epi) Few /LPF [facility] AND [id number] 02:27:00 Test Item Value Reference Range Interpretation Comments UA WBC (test code = no gt See_Comment [Automa sally message] The UA WBC) system which ge nerated this result transmit sally reference range : <=5. The reference range was not used to interpr et this result as henrry l/abnormal. [facility] AND [id number] 02:27:00 Test Item Value Reference Range Interpretation Comments UA RBC (test code = 8 See_Comment [Automa sally message] The UA RBC) system which ge nerated this result transmit sally reference range : <=2. The reference range was not used to interpr et this result as henrry l/abnormal. [facility] AND [id number] 02:27:00 Test Item Value Reference Range Interpretation Comments UA Bacteria (test code = UA Few /HPF Bacteria) [facility] AND [id number] 02:27:00 Test Item Value Reference Range Interpretation Comments UA Spec Grav (test code = UA Spec 1.015 1 Grav) [facility] AND [id number] 02:27:00 Test Item Value Reference Range Interpretation Comments UA pH (test code = UA pH) 6.0 1 5.0-8.0 [facility] AND [id number] 02:27:00 Test Item Value Reference Range Interpretation Comments UA Protein (test code = UA Protein) 100 mg/dL [facility] AND [id number] 02:27:00 Test Item Value Reference Range Interpretation Comments UA Glucose (test code Negative (03/28/22 8:27 = UA Glucose) PM) [facility] AND [id number] 02:27:00 Test Item Value Reference Range Interpretation Comments UA Ketones (test code Negative *NA*(03/28/22 = UA Ketones) 8:27 PM) [facility] AND [id number] 02:27:00 Test Item Value Reference Range Interpretation Comments UA Bili (test code = Negative *NA*(03/28/22 UA Bili) 8:27 PM) [facility] AND [id number] 02:27:00 Test Item Value Reference Range Interpretation Comments UA Blood (test code = Moderate *ABN*(03/28/22 UA Blood) 8:27 PM) [facility] [id number] 02:27:00 Test Item Value Reference Range Interpretation Comments UA Urobilinogen (test code = UA 0.2 0.1-1.0 Urobilinogen) [facility] [id number] 02:27:00 Test Item Value Reference Range Interpretation Comments UA Nitrite (test code Negative (03/28/22 8:27 = UA Nitrite) PM) [facility] [id number] 02:27:00 Test Item Value Reference Range Interpretation Comments UA Leuk Est (test code Large *ABN*(03/28/22 8:27 = UA Leuk Est) PM) [facility]: [id number] 02:27:00 Test Item Value Reference Range Interpretation Comments Culture: Urine (test code = No Growth Culture: Urine) [facility] [id number] 02:27:00 Test Item Value Reference Range Interpretation Comments UA Color (test code = Light Yellow (03/28/22 UA Color) 8:27 PM) [facility] [id number] 02:27:00 Test Item Value Reference Range Interpretation Comments UA Turbidity (test code Slight *ABN*(03/28/22 = UA Turbidity) 8:27 PM) [facility] [id number] 02:27:00 Test Item Value Reference Range Interpretation Comments UA Sq Epi (test code = UA Sq Epi) Few /LPF [facility] [id number] 02:27:00 Test Item Value Reference Range Interpretation Comments UA WBC (test code = no gt See_Comment [Automa sally message] The UA WBC) system which ge nerated this result transmit sally reference range : <=5. The reference range was not used to interpr et this result as henrry l/abnormal. [facility] [id number] 02:27:00 Test Item Value Reference Range Interpretation Comments UA RBC (test code = 8 See_Comment [Automa sally message] The UA RBC) system which ge nerated this result transmit sally reference range : <=2. The reference range was not used to interpr et this result as henrry l/abnormal. [facility] [id number] 02:27:00 Test Item Value Reference Range Interpretation Comments UA Bacteria (test code = UA Few /HPF Bacteria) [facility] AND [id number] 02:27:00 Test Item Value Reference Range Interpretation Comments UA Spec Grav (test code = UA Spec 1.015 1 Grav) [facility] AND [id number] 02:27:00 Test Item Value Reference Range Interpretation Comments UA pH (test code = UA pH) 6.0 1 5.0-8.0 [facility] AND [id number] 02:27:00 Test Item Value Reference Range Interpretation Comments UA Protein (test code = UA Protein) 100 mg/dL [facility] AND [id number] 02:27:00 Test Item Value Reference Range Interpretation Comments UA Glucose (test code Negative (03/28/22 8:27 = UA Glucose) PM) [facility] AND [id number] 02:27:00 Test Item Value Reference Range Interpretation Comments UA Ketones (test code Negative *NA*(03/28/22 = UA Ketones) 8:27 PM) [facility] AND [id number] 02:27:00 Test Item Value Reference Range Interpretation Comments UA Bili (test code = Negative *NA*(03/28/22 UA Bili) 8:27 PM) [facility] AND [id number] 02:27:00 Test Item Value Reference Range Interpretation Comments UA Blood (test code = Moderate *ABN*(03/28/22 UA Blood) 8:27 PM) [facility] AND [id number] 02:27:00 Test Item Value Reference Range Interpretation Comments UA Urobilinogen (test code = UA 0.2 0.1-1.0 Urobilinogen) [facility] AND [id number] 02:27:00 Test Item Value Reference Range Interpretation Comments UA Nitrite (test code Negative (03/28/22 8:27 = UA Nitrite) PM) [facility] AND [id number] 02:27:00 Test Item Value Reference Range Interpretation Comments UA Leuk Est (test code Large *ABN*(03/28/22 8:27 = UA Leuk Est) PM) [facility] [id number] 02:27:00 Test Item Value Reference Range Interpretation Comments Culture: Urine (test code = No Growth Culture: Urine) [facility] AND [id number] 02:27:00 Test Item Value Reference Range Interpretation Comments UA Color (test code = Light Yellow (03/28/22 UA Color) 8:27 PM) [facility] AND [id number] 02:27:00 Test Item Value Reference Range Interpretation Comments UA Turbidity (test code Slight *ABN*(03/28/22 = UA Turbidity) 8:27 PM) [facility] [id number] 02:27:00 Test Item Value Reference Range Interpretation Comments UA Sq Epi (test code = UA Sq Epi) Few /LPF [facility] [id number] 02:27:00 Test Item Value Reference Range Interpretation Comments UA WBC (test code = no gt See_Comment [Automa sally message] The UA WBC) system which ge nerated this result transmit sally reference range : <=5. The reference range was not used to interpr et this result as henrry l/abnormal. [facility] AND [id number] 02:27:00 Test Item Value Reference Range Interpretation Comments UA RBC (test code = 8 See_Comment [Automa sally message] The UA RBC) system which ge nerated this result transmit sally reference range : <=2. The reference range was not used to interpr et this result as henrry l/abnormal. [facility] AND [id number] 02:27:00 Test Item Value Reference Range Interpretation Comments UA Bacteria (test code = UA Few /HPF Bacteria) [facility] [id number] 02:27:00 Test Item Value Reference Range Interpretation Comments UA Spec Grav (test code = UA Spec 1.015 1 Grav) [facility] [id number] 02:27:00 Test Item Value Reference Range Interpretation Comments UA pH (test code = UA pH) 6.0 1 5.0-8.0 [facility] [id number] 02:27:00 Test Item Value Reference Range Interpretation Comments UA Protein (test code = UA Protein) 100 mg/dL [facility] [id number] 02:27:00 Test Item Value Reference Range Interpretation Comments UA Glucose (test code Negative (1/3/23 8:27 = UA Glucose) PM) [facility] AND [id number] 02:27:00 Test Item Value Reference Range Interpretation Comments UA Ketones (test code Negative *NA*(03/28/22 = UA Ketones) 8:27 PM) [facility] AND [id number] 02:27:00 Test Item Value Reference Range Interpretation Comments UA Bili (test code = Negative *NA*(03/28/22 UA Bili) 8:27 PM) [facility] AND [id number] 02:27:00 Test Item Value Reference Range Interpretation Comments UA Blood (test code = Moderate *ABN*(03/28/22 UA Blood) 8:27 PM) [facility] AND [id number] 02:27:00 Test Item Value Reference Range Interpretation Comments UA Urobilinogen (test code = UA 0.2 0.1-1.0 Urobilinogen) [facility] AND [id number] 02:27:00 Test Item Value Reference Range Interpretation Comments UA Nitrite (test code Negative (03/28/22 8:27 = UA Nitrite) PM) [facility] AND [id number] 02:27:00 Test Item Value Reference Range Interpretation Comments UA Leuk Est (test code Large *ABN*(03/28/22 8:27 = UA Leuk Est) PM) [facility] [id number] 02:27:00 Test Item Value Reference Range Interpretation Comments Culture: Urine (test code = No Growth Culture: Urine) [facility]MW[facility]-65 01:53:00 Test Item Value Reference Range Interpretation Comments Glucose Lvl (test code = Glucose Lvl) 73 70-99 [facility]AtcrjqsBEESKBCCE4225-13-34 01:53:00 Test Item Value Reference Range Interpretation Comments BUN (test code = BUN) 33 7-22 [facility]BqmncdeFMRVPQSKI9668-96-05 01:53:00 Test Item Value Reference Range Interpretation Comments Creatinine Lvl (test code = Creatinine 6.87 0.50-1.40 Lvl) [facility] HospitalJfrifkbCKQROUQSU5124-18-21 01:53:00 Test Item Value Reference Range Interpretation Comments Sodium Lvl (test code = Sodium Lvl) 137 135-145 [facility] HospitalLqonuikFFETCGPJM7391-62-90 01:53:00 Test Item Value Reference Range Interpretation Comments Potassium Lvl (test code = Potassium 3.4 3.5-5.1 Lvl) [facility] HospitalWtcpgdtODSIVADGZ8029-94-35 01:53:00 Test Item Value Reference Range Interpretation Comments Chloride Lvl (test code = Chloride Lvl) 102 95-109 [facility] HospitalCrzfwfwNFJVQSLIX8374-69-75 01:53:00 Test Item Value Reference Range Interpretation Comments CO2 (test code = CO2) 26 24-32 [facility] HospitalOpbsitnUKYKYSZPW2868-85-33 01:53:00 Test Item Value Reference Range Interpretation Comments AGAP (test code = AGAP) 12.4 10.0-20.0 [place] 815533-01-04 01:53:00 Test Item Value Reference Range Interpretation Comments Calcium Lvl (test code = Calcium Lvl) 8.4 8.5-10.5 [facility] HospitalHvvahprKJHGPRECG3474-52-41 01:53:00 Test Item Value Reference Range Interpretation Comments B/C Ratio (test code = B/C Ratio) 5 1 6-25 [facility] HospitalSkiwpkjBMHOKBRLJ7262-86-31 01:53:00 Test Item Value Reference Range Interpretation Comments Total Protein (test code = Total 6.5 6.4-8.4 Protein) [facility] HospitalUmpzanoYNVKWMTQE2397-65-26 01:53:00 Test Item Value Reference Range Interpretation Comments Albumin Lvl (test code = Albumin Lvl) 2.5 3.5-5.0 [facility] HospitalDjztmviCOHMIFUNM9129-05-39 01:53:00 Test Item Value Reference Range Interpretation Comments Globulin (test code = Globulin) 4.0 2.7-4.2 [place] 815533-01-04 01:53:00 Test Item Value Reference Range Interpretation Comments A/G Ratio (test code = A/G Ratio) 0.6 1 0.7-1.6 [place] 815533-01-04 01:53:00 Test Item Value Reference Range Interpretation Comments ALT (test code = ALT) 6 See_Comment [Auto mated message] The system which ge nerated this result transmit sally reference range : <=65. The reference range was not used to interpr et this result as henrry l/abnormal. [facility] HospitalRfvhvszNVIAGNBCW4777-37-81 01:53:00 Test Item Value Reference Range Interpretation Comments AST (test code = AST) 17 See_Comment [Auto mated message] The system which ge nerated this result transmit sally reference range : <=37. The reference range was not used to interpr et this result as henrry l/abnormal. [place] 815533-01-04 01:53:00 Test Item Value Reference Range Interpretation Comments Alk Phos (test code = Alk Phos) 57 39-136 [place] 815533-01-04 01:53:00 Test Item Value Reference Range Interpretation Comments Bili Total (test code = Bili Total) 0.4 0.2-1.3 [place] 815533-01-04 01:53:00 Test Item Value Reference Range Interpretation Comments eGFR (test code = eGFR) 6 [facility] HospitalSfelyyfITTNJCXQUY6781-32-72 01:53:00 Test Item Value Reference Range Interpretation Comments WBC (test code = WBC) 4.1 3.7-10.4 [place] 111103-01-04 01:53:00 Test Item Value Reference Range Interpretation Comments RBC (test code = RBC) 3.34 4.20-5.40 [place] 111103-01-04 01:53:00 Test Item Value Reference Range Interpretation Comments Hgb (test code = Hgb) 11.6 12.0-16.0 [facility] HospitalHpyclipRIBTYKTFUY0423-91-70 01:53:00 Test Item Value Reference Range Interpretation Comments Hct (test code = Hct) 35.9 36.0-48.0 [place] 111103-01-04 01:53:00 Test Item Value Reference Range Interpretation Comments MCV (test code = MCV) 107.5 80.0-98.0 [place] 111103-01-04 01:53:00 Test Item Value Reference Range Interpretation Comments MCH (test code = MCH) 34.7 pg 27.0-31.0 [facility] HospitalXfnknbuXXIBJYMHSA8414-51-29 01:53:00 Test Item Value Reference Range Interpretation Comments MCHC (test code = MCHC) 32.3 32.0-36.0 [place] 111103-01-04 01:53:00 Test Item Value Reference Range Interpretation Comments RDW (test code = RDW) 18.0 11.5-14.5 [place] [address]-01-04 01:53:00 Test Item Value Reference Range Interpretation Comments Platelet (test code = Platelet) 358 133-450 [place] [address]-01-04 01:53:00 Test Item Value Reference Range Interpretation Comments MPV (test code = MPV) 8.7 7.4-10.4 [place] [address]-01-04 01:53:00 Test Item Value Reference Range Interpretation Comments Segs (test code = Segs) 38.6 45.0-75.0 [place] [address]-01-04 01:53:00 Test Item Value Reference Range Interpretation Comments Lymphocytes (test code = Lymphocytes) 51.5 20.0-40.0 [place] [address]-01-04 01:53:00 Test Item Value Reference Range Interpretation Comments Monocytes (test code = Monocytes) 8.4 2.0-12.0 [place] [address]-01-04 01:53:00 Test Item Value Reference Range Interpretation Comments Eosinophils (test code = 0.4 See_Comment [A utomated message] The Eosinophils) system which ge nerated this result tra nsmitted reference range : <=4.0. The reference r calli was not used to int erpret this result as normal/abnormal . [place] [address]-01-04 01:53:00 Test Item Value Reference Range Interpretation Comments Basophils (test code = 1.1 See_Comment [Aut omated message] The Basophils) system which ge nerated this result tra nsmitted reference range : <=1.0. The reference r calli was not used to int erpret this result as normal/abnormal . [place] 111103-01-04 01:53:00 Test Item Value Reference Range Interpretation Comments Neutrophils # (test code = Neutrophils 1.6 1.5-8.1 #) [place] [address]-01-04 01:53:00 Test Item Value Reference Range Interpretation Comments Lymphocytes # (test code = Lymphocytes 2.1 1.0-5.5 #) [place] [address]-01-04 01:53:00 Test Item Value Reference Range Interpretation Comments Monocytes # (test code 0.3 See_Comment [Aut omated message] The = Monocytes #) system which generated this result tra nsmitted reference range : <=0.8. The reference r calli was not used to int erpret this result as normal/abnormal . [facility] HospitalPdwvlarZGDEMWSERJ7632-99-15 01:53:00 Test Item Value Reference Range Interpretation Comments Macrocyte (test code = 1+ *ABN*(03/28/22 7:53 Macrocyte) PM) [place] 815533-01-04 01:53:00 Test Item Value Reference Range Interpretation Comments Glucose Lvl (test code = Glucose Lvl) 73 70-99 [place] 815533-01-04 01:53:00 Test Item Value Reference Range Interpretation Comments BUN (test code = BUN) 33 7-22 [place] 815533-01-04 01:53:00 Test Item Value Reference Range Interpretation Comments Creatinine Lvl (test code = Creatinine 6.87 0.50-1.40 Lvl) [facility] HospitalWjjrdmwWAIJGTBXW8444-81-20 01:53:00 Test Item Value Reference Range Interpretation Comments Sodium Lvl (test code = Sodium Lvl) 137 135-145 [facility] HospitalCcjdmzcEFVKSFNGX7420-66-62 01:53:00 Test Item Value Reference Range Interpretation Comments Potassium Lvl (test code = Potassium 3.4 3.5-5.1 Lvl) [facility] HospitalOotlltxSYRKCEYLI7160-33-88 01:53:00 Test Item Value Reference Range Interpretation Comments Chloride Lvl (test code = Chloride Lvl) 102 95-109 [place] 815533-01-04 01:53:00 Test Item Value Reference Range Interpretation Comments CO2 (test code = CO2) 26 24-32 [facility] HospitalPponopyVVHQYBBUW6362-97-62 01:53:00 Test Item Value Reference Range Interpretation Comments AGAP (test code = AGAP) 12.4 10.0-20.0 [place] 815533-01-04 01:53:00 Test Item Value Reference Range Interpretation Comments Calcium Lvl (test code = Calcium Lvl) 8.4 8.5-10.5 [place] 815533-01-04 01:53:00 Test Item Value Reference Range Interpretation Comments B/C Ratio (test code = B/C Ratio) 5 1 6-25 [place] 815533-01-04 01:53:00 Test Item Value Reference Range Interpretation Comments Total Protein (test code = Total 6.5 6.4-8.4 Protein) [facility] HospitalJcctbbvICHCSJFSJ7908-14-96 01:53:00 Test Item Value Reference Range Interpretation Comments Albumin Lvl (test code = Albumin Lvl) 2.5 3.5-5.0 [facility] HospitalChbszasBUMRBGHFY7264-03-88 01:53:00 Test Item Value Reference Range Interpretation Comments Globulin (test code = Globulin) 4.0 2.7-4.2 [facility] HospitalQbevusiGBVJVBLUO8285-51-90 01:53:00 Test Item Value Reference Range Interpretation Comments A/G Ratio (test code = A/G Ratio) 0.6 1 0.7-1.6 [facility] HospitalFlhvwaoQWNGHLBBP1354-98-89 01:53:00 Test Item Value Reference Range Interpretation Comments ALT (test code = ALT) 6 See_Comment [Auto mated message] The system which ge nerated this result transmit sally reference range : <=65. The reference range was not used to interpr et this result as henrry l/abnormal. [facility] HospitalCxzjoraZGRJVOHMT3514-28-96 01:53:00 Test Item Value Reference Range Interpretation Comments AST (test code = AST) 17 See_Comment [Auto mated message] The system which ge nerated this result transmit sally reference range : <=37. The reference range was not used to interpr et this result as henrry l/abnormal. [facility] HospitalIaiogjkOPYFMQLPC6275-70-67 01:53:00 Test Item Value Reference Range Interpretation Comments Alk Phos (test code = Alk Phos) 57 39-136 [facility] HospitalTzmxcvjCGQKOVZZM0513-97-72 01:53:00 Test Item Value Reference Range Interpretation Comments Bili Total (test code = Bili Total) 0.4 0.2-1.3 [facility] HospitalUsmkptlUTOSJHCGL1075-28-02 01:53:00 Test Item Value Reference Range Interpretation Comments eGFR (test code = eGFR) 6 [facility] LakeChatfeySKQAOLIISI8030-64-22 01:53:00 Test Item Value Reference Range Interpretation Comments WBC (test code = WBC) 4.1 3.7-10.4 [facility] HospitalJqtcpnvVQNZAAPEJE7536-72-03 01:53:00 Test Item Value Reference Range Interpretation Comments RBC (test code = RBC) 3.34 4.20-5.40 [place] 111103-01-04 01:53:00 Test Item Value Reference Range Interpretation Comments Hgb (test code = Hgb) 11.6 12.0-16.0 [place] 111103-01-04 01:53:00 Test Item Value Reference Range Interpretation Comments Hct (test code = Hct) 35.9 36.0-48.0 [place] 111103-01-04 01:53:00 Test Item Value Reference Range Interpretation Comments MCV (test code = MCV) 107.5 80.0-98.0 [place] 111103-01-04 01:53:00 Test Item Value Reference Range Interpretation Comments MCH (test code = MCH) 34.7 pg 27.0-31.0 [place] 111103-01-04 01:53:00 Test Item Value Reference Range Interpretation Comments MCHC (test code = MCHC) 32.3 32.0-36.0 [place] 111103-01-04 01:53:00 Test Item Value Reference Range Interpretation Comments RDW (test code = RDW) 18.0 11.5-14.5 [place] 111103-01-04 01:53:00 Test Item Value Reference Range Interpretation Comments Platelet (test code = Platelet) 358 133-450 [place] 111103-01-04 01:53:00 Test Item Value Reference Range Interpretation Comments MPV (test code = MPV) 8.7 7.4-10.4 [place] 111103-01-04 01:53:00 Test Item Value Reference Range Interpretation Comments Segs (test code = Segs) 38.6 45.0-75.0 [place] 111103-01-04 01:53:00 Test Item Value Reference Range Interpretation Comments Lymphocytes (test code = Lymphocytes) 51.5 20.0-40.0 [place] [address]-01-04 01:53:00 Test Item Value Reference Range Interpretation Comments Monocytes (test code = Monocytes) 8.4 2.0-12.0 [place] [address]-01-04 01:53:00 Test Item Value Reference Range Interpretation Comments Eosinophils (test code = 0.4 See_Comment [A utomated message] The Eosinophils) system which ge nerated this result tra nsmitted reference range : <=4.0. The reference r calli was not used to int erpret this result as normal/abnormal . [facility] HospitalSkgxkwzYKRCWVVNXW7915-58-41 01:53:00 Test Item Value Reference Range Interpretation Comments Basophils (test code = 1.1 See_Comment [Aut omated message] The Basophils) system which ge nerated this result tra nsmitted reference range : <=1.0. The reference r calli was not used to int erpret this result as normal/abnormal . [facility] HospitalDvrsllpNSMPZEUNRE9940-95-59 01:53:00 Test Item Value Reference Range Interpretation Comments Neutrophils # (test code = Neutrophils 1.6 1.5-8.1 #) [facility] HospitalPrrzwpnREAXDRRWOM7240-12-02 01:53:00 Test Item Value Reference Range Interpretation Comments Lymphocytes # (test code = Lymphocytes 2.1 1.0-5.5 #) [place] 111103-01-04 01:53:00 Test Item Value Reference Range Interpretation Comments Monocytes # (test code 0.3 See_Comment [Aut omated message] The = Monocytes #) system which generated this result tra nsmitted reference range : <=0.8. The reference r calli was not used to int erpret this result as normal/abnormal . [facility] HospitalAvdcvdnCYIWIXJXRC5878-98-35 01:53:00 Test Item Value Reference Range Interpretation Comments Macrocyte (test code = 1+ *ABN*(03/28/22 7:53 Macrocyte) PM) [facility] HospitalIocxggeBXSKZPTUM3972-75-14 01:53:00 Test Item Value Reference Range Interpretation Comments Glucose Lvl (test code = Glucose Lvl) 73 70-99 [facility] HospitalDwgchucVMQZQARLF4764-10-74 01:53:00 Test Item Value Reference Range Interpretation Comments BUN (test code = BUN) 33 7-22 [facility] HospitalWmpgxgnHBFXSQMUJ5631-78-68 01:53:00 Test Item Value Reference Range Interpretation Comments Creatinine Lvl (test code = Creatinine 6.87 0.50-1.40 Lvl) [facility] HospitalMdfvuqbJVNEZZZAG8210-44-06 01:53:00 Test Item Value Reference Range Interpretation Comments Sodium Lvl (test code = Sodium Lvl) 137 135-145 [place] 815533-01-04 01:53:00 Test Item Value Reference Range Interpretation Comments Potassium Lvl (test code = Potassium 3.4 3.5-5.1 Lvl) [facility] HospitalTvowgbqJUTBRAJIL6599-92-49 01:53:00 Test Item Value Reference Range Interpretation Comments Chloride Lvl (test code = Chloride Lvl) 102 95-109 [facility] HospitalUnlvldsOLEXOEYFS0849-10-25 01:53:00 Test Item Value Reference Range Interpretation Comments CO2 (test code = CO2) 26 24-32 [facility] HospitalCcxjnamTVTYUMJYR0324-78-03 01:53:00 Test Item Value Reference Range Interpretation Comments AGAP (test code = AGAP) 12.4 10.0-20.0 [place] 815533-01-04 01:53:00 Test Item Value Reference Range Interpretation Comments Calcium Lvl (test code = Calcium Lvl) 8.4 8.5-10.5 [facility] HospitalIbbbiytPDSQYLHTX7460-02-98 01:53:00 Test Item Value Reference Range Interpretation Comments B/C Ratio (test code = B/C Ratio) 5 1 6-25 [facility] HospitalZcgotrvCJBNHTLLU5414-70-25 01:53:00 Test Item Value Reference Range Interpretation Comments Total Protein (test code = Total 6.5 6.4-8.4 Protein) [facility] HospitalLfhmbfsWROMNJCTD7185-30-33 01:53:00 Test Item Value Reference Range Interpretation Comments Albumin Lvl (test code = Albumin Lvl) 2.5 3.5-5.0 [facility] HospitalNyquqxzLQEIVCSDA7038-39-48 01:53:00 Test Item Value Reference Range Interpretation Comments Globulin (test code = Globulin) 4.0 2.7-4.2 [facility] HospitalNcdrocwMXZFZKTRV7654-16-52 01:53:00 Test Item Value Reference Range Interpretation Comments A/G Ratio (test code = A/G Ratio) 0.6 1 0.7-1.6 [facility] HospitalRcocoqoQZZUIGAFM9850-31-27 01:53:00 Test Item Value Reference Range Interpretation Comments ALT (test code = ALT) 6 See_Comment [Auto mated message] The system which ge nerated this result transmit sally reference range : <=65. The reference range was not used to interpr et this result as henrry l/abnormal. [facility] HospitalLzpgqctNDUFGDOKZ0425-38-26 01:53:00 Test Item Value Reference Range Interpretation Comments AST (test code = AST) 17 See_Comment [Auto mated message] The system which ge nerated this result transmit sally reference range : <=37. The reference range was not used to interpr et this result as henrry l/abnormal. [facility] HospitalFxwcuahYYEWRCGBM8400-02-79 01:53:00 Test Item Value Reference Range Interpretation Comments Alk Phos (test code = Alk Phos) 57 39-136 [place] 815533-01-04 01:53:00 Test Item Value Reference Range Interpretation Comments Bili Total (test code = Bili Total) 0.4 0.2-1.3 [facility] HospitalFcoaxczTGAPRELCZ1263-46-95 01:53:00 Test Item Value Reference Range Interpretation Comments eGFR (test code = eGFR) 6 [facility] HospitalMgbqqwtDEIGQPTQNL4628-64-91 01:53:00 Test Item Value Reference Range Interpretation Comments WBC (test code = WBC) 4.1 3.7-10.4 [facility] HospitalKyulyzdPOVFZRHWGG5769-92-96 01:53:00 Test Item Value Reference Range Interpretation Comments RBC (test code = RBC) 3.34 4.20-5.40 [facility] HospitalFebomicUJKYJSWYRP5784-01-94 01:53:00 Test Item Value Reference Range Interpretation Comments Hgb (test code = Hgb) 11.6 12.0-16.0 [facility] HospitalHikioerDOZICIJXSO6336-84-66 01:53:00 Test Item Value Reference Range Interpretation Comments Hct (test code = Hct) 35.9 36.0-48.0 [facility] HospitalHswebiuBRFXUUHQKL4513-31-19 01:53:00 Test Item Value Reference Range Interpretation Comments MCV (test code = MCV) 107.5 80.0-98.0 [facility] HospitalYbbhdunZARTCXZPIG4200-89-68 01:53:00 Test Item Value Reference Range Interpretation Comments MCH (test code = MCH) 34.7 pg 27.0-31.0 [facility] HospitalFrnifaeLBXLXUTHUT8646-21-89 01:53:00 Test Item Value Reference Range Interpretation Comments MCHC (test code = MCHC) 32.3 32.0-36.0 [facility] HospitalDutrnrpSTETKDWPEM0139-45-34 01:53:00 Test Item Value Reference Range Interpretation Comments RDW (test code = RDW) 18.0 11.5-14.5 [facility] HospitalExkpgahVBRFLMFHPB0893-14-20 01:53:00 Test Item Value Reference Range Interpretation Comments Platelet (test code = Platelet) 358 133-450 [place] 111103-01-04 01:53:00 Test Item Value Reference Range Interpretation Comments MPV (test code = MPV) 8.7 7.4-10.4 [place] 111103-01-04 01:53:00 Test Item Value Reference Range Interpretation Comments Segs (test code = Segs) 38.6 45.0-75.0 [place] 111103-01-04 01:53:00 Test Item Value Reference Range Interpretation Comments Lymphocytes (test code = Lymphocytes) 51.5 20.0-40.0 [place] [address]-01-04 01:53:00 Test Item Value Reference Range Interpretation Comments Monocytes (test code = Monocytes) 8.4 2.0-12.0 [place] [address]-01-04 01:53:00 Test Item Value Reference Range Interpretation Comments Eosinophils (test code = 0.4 See_Comment [A utomated message] The Eosinophils) system which ge nerated this result tra nsmitted reference range : <=4.0. The reference r calli was not used to int erpret this result as normal/abnormal . [place] [address]-01-04 01:53:00 Test Item Value Reference Range Interpretation Comments Basophils (test code = 1.1 See_Comment [Aut omated message] The Basophils) system which ge nerated this result tra nsmitted reference range : <=1.0. The reference r calli was not used to int erpret this result as normal/abnormal . [place] 111103-01-04 01:53:00 Test Item Value Reference Range Interpretation Comments Neutrophils # (test code = Neutrophils 1.6 1.5-8.1 #) [place] [address]-01-04 01:53:00 Test Item Value Reference Range Interpretation Comments Lymphocytes # (test code = Lymphocytes 2.1 1.0-5.5 #) [place] [address]-01-04 01:53:00 Test Item Value Reference Range Interpretation Comments Monocytes # (test code 0.3 See_Comment [Aut omated message] The = Monocytes #) system which generated this result tra nsmitted reference range : <=0.8. The reference r calli was not used to int erpret this result as normal/abnormal . [facility] HospitalJcjaslcBDQYLQVVGP2676-30-87 01:53:00 Test Item Value Reference Range Interpretation Comments Macrocyte (test code = 1+ *ABN*(03/28/22 7:53 Macrocyte) PM) [facility] HospitalHaygqtcZEVRNPZBN4823-54-24 01:53:00 Test Item Value Reference Range Interpretation Comments Glucose Lvl (test code = Glucose Lvl) 73 70-99 [place] 815533-01-04 01:53:00 Test Item Value Reference Range Interpretation Comments BUN (test code = BUN) 33 7-22 [place] 815533-01-04 01:53:00 Test Item Value Reference Range Interpretation Comments Creatinine Lvl (test code = Creatinine 6.87 0.50-1.40 Lvl) [facility] HospitalBjnfhnvHQKMLUAOX8205-82-54 01:53:00 Test Item Value Reference Range Interpretation Comments Sodium Lvl (test code = Sodium Lvl) 137 135-145 [place] 815533-01-04 01:53:00 Test Item Value Reference Range Interpretation Comments Potassium Lvl (test code = Potassium 3.4 3.5-5.1 Lvl) [facility] HospitalMwoydzlVYLHQRWHZ6866-27-45 01:53:00 Test Item Value Reference Range Interpretation Comments Chloride Lvl (test code = Chloride Lvl) 102 95-109 [facility] [facility]4506-80-15 01:53:00 Test Item Value Reference Range Interpretation Comments CO2 (test code = CO2) 26 24-32 [facility]zgiJBXOTMVSF6797-88-07 01:53:00 Test Item Value Reference Range Interpretation Comments AGAP (test code = AGAP) 12.4 10.0-20.0 [facility] HospitalDozshnuJGADKNTAJ3523-41-12 01:53:00 Test Item Value Reference Range Interpretation Comments Calcium Lvl (test code = Calcium Lvl) 8.4 8.5-10.5 [facility]HfvaxlgIQVCUKOLW4163-40-81 01:53:00 Test Item Value Reference Range Interpretation Comments B/C Ratio (test code = B/C Ratio) 5 1 6-25 [place] 815533-01-04 01:53:00 Test Item Value Reference Range Interpretation Comments Total Protein (test code = Total 6.5 6.4-8.4 Protein) [facility]BmsxcjbZDIHQXUWD5059-98-09 01:53:00 Test Item Value Reference Range Interpretation Comments Albumin Lvl (test code = Albumin Lvl) 2.5 3.5-5.0 [facility] VyosbpuAEDIWQKOQ5865-93-10 01:53:00 Test Item Value Reference Range Interpretation Comments Globulin (test code = Globulin) 4.0 2.7-4.2 [facility] LakeYklnuyaSLERHIION5240-13-29 01:53:00 Test Item Value Reference Range Interpretation Comments A/G Ratio (test code = A/G Ratio) 0.6 1 0.7-1.6 [facility] LakeWidcrrzBGHRGEUSP6298-75-55 01:53:00 Test Item Value Reference Range Interpretation Comments ALT (test code = ALT) 6 See_Comment [Auto mated message] The system which ge nerated this result transmit sally reference range : <=65. The reference range was not used to interpr et this result as henrry l/abnormal. [facility] PjrzugyUDUKQUVSW3291-69-50 01:53:00 Test Item Value Reference Range Interpretation Comments AST (test code = AST) 17 See_Comment [Auto mated message] The system which ge nerated this result transmit sally reference range : <=37. The reference range was not used to interpr et this result as henrry l/abnormal. [facility] BerklbrXRVRVBNSG0115-31-82 01:53:00 Test Item Value Reference Range Interpretation Comments Alk Phos (test code = Alk Phos) 57 39-136 [facility] JmlvmiuVPKDLTBZX6336-42-73 01:53:00 Test Item Value Reference Range Interpretation Comments Bili Total (test code = Bili Total) 0.4 0.2-1.3 [facility] LakeCdapdqlFECGRTGMM3497-62-62 01:53:00 Test Item Value Reference Range Interpretation Comments eGFR (test code = eGFR) 6 [facility] WxursewXJNOKGXIKU5158-53-94 01:53:00 Test Item Value Reference Range Interpretation Comments WBC (test code = WBC) 4.1 3.7-10.4 [facility] LakeGwsdvihDJGUOBZDGH9586-60-67 01:53:00 Test Item Value Reference Range Interpretation Comments RBC (test code = RBC) 3.34 4.20-5.40 [facility] LakeTvdjqfwPJYGVZSTCK7801-56-14 01:53:00 Test Item Value Reference Range Interpretation Comments Hgb (test code = Hgb) 11.6 12.0-16.0 [place] 111103-01-04 01:53:00 Test Item Value Reference Range Interpretation Comments Hct (test code = Hct) 35.9 36.0-48.0 [place] 111103-01-04 01:53:00 Test Item Value Reference Range Interpretation Comments MCV (test code = MCV) 107.5 80.0-98.0 [place] 111103-01-04 01:53:00 Test Item Value Reference Range Interpretation Comments MCH (test code = MCH) 34.7 pg 27.0-31.0 [place] 111103-01-04 01:53:00 Test Item Value Reference Range Interpretation Comments MCHC (test code = MCHC) 32.3 32.0-36.0 [place] 111103-01-04 01:53:00 Test Item Value Reference Range Interpretation Comments RDW (test code = RDW) 18.0 11.5-14.5 [place] 111103-01-04 01:53:00 Test Item Value Reference Range Interpretation Comments Platelet (test code = Platelet) 358 133-450 [facility]TqzriurUEEMCRPBPT6285-25-86 01:53:00 Test Item Value Reference Range Interpretation Comments MPV (test code = MPV) 8.7 7.4-10.4 [facility] HospitalMvnktjlOINTCFAHRI0174-68-84 01:53:00 Test Item Value Reference Range Interpretation Comments Segs (test code = Segs) 38.6 45.0-75.0 [facility] HospitalMldxiguQLVBSUWTEK0052-54-64 01:53:00 Test Item Value Reference Range Interpretation Comments Lymphocytes (test code = Lymphocytes) 51.5 20.0-40.0 [place] 111103-01-04 01:53:00 Test Item Value Reference Range Interpretation Comments Monocytes (test code = Monocytes) 8.4 2.0-12.0 [place] 111103-01-04 01:53:00 Test Item Value Reference Range Interpretation Comments Eosinophils (test code = 0.4 See_Comment [A utomated message] The Eosinophils) system which ge nerated this result tra nsmitted reference range : <=4.0. The reference r calli was not used to int erpret this result as normal/abnormal . [place] 111103-01-04 01:53:00 Test Item Value Reference Range Interpretation Comments Basophils (test code = 1.1 See_Comment [Aut omated message] The Basophils) system which ge nerated this result tra nsmitted reference range : <=1.0. The reference r calli was not used to int erpret this result as normal/abnormal . [facility] HospitalProrgtmAXIOXEEBBT4439-78-52 01:53:00 Test Item Value Reference Range Interpretation Comments Neutrophils # (test code = Neutrophils 1.6 1.5-8.1 #) [facility] HospitalFlxrsakAGVPZXVPPR6154-41-19 01:53:00 Test Item Value Reference Range Interpretation Comments Lymphocytes # (test code = Lymphocytes 2.1 1.0-5.5 #) [facility] HospitalOcscljfJLFPGLVDFR1489-29-92 01:53:00 Test Item Value Reference Range Interpretation Comments Monocytes # (test code 0.3 See_Comment [Aut omated message] The = Monocytes #) system which generated this result tra nsmitted reference range : <=0.8. The reference r calli was not used to int erpret this result as normal/abnormal . [facility] HospitalXvxwsczGLRXDJDJJE6751-32-73 01:53:00 Test Item Value Reference Range Interpretation Comments Macrocyte (test code = 1+ *ABN*(03/28/22 7:53 Macrocyte) PM) [facility] HospitalGsumgkyTGJSLZPHA7311-84-44 01:53:00 Test Item Value Reference Range Interpretation Comments Glucose Lvl (test code = Glucose Lvl) 73 70-99 [facility] HospitalBhyjyurUREOUFYPW4434-81-05 01:53:00 Test Item Value Reference Range Interpretation Comments BUN (test code = BUN) 33 7-22 [facility] HospitalCtykfnkFRBMIMEBR6215-12-57 01:53:00 Test Item Value Reference Range Interpretation Comments Creatinine Lvl (test code = Creatinine 6.87 0.50-1.40 Lvl) [facility] HospitalRigsyxjROHJYQTUH7229-24-99 01:53:00 Test Item Value Reference Range Interpretation Comments Sodium Lvl (test code = Sodium Lvl) 137 135-145 [facility] HospitalLzyaxhtEQOBOTBAV7818-11-74 01:53:00 Test Item Value Reference Range Interpretation Comments Potassium Lvl (test code = Potassium 3.4 3.5-5.1 Lvl) [facility] HospitalKpczpauQRUTWPWFT6908-43-98 01:53:00 Test Item Value Reference Range Interpretation Comments Chloride Lvl (test code = Chloride Lvl) 102 95-109 [place] 815533-01-04 01:53:00 Test Item Value Reference Range Interpretation Comments CO2 (test code = CO2) 26 24-32 [place] 815533-01-04 01:53:00 Test Item Value Reference Range Interpretation Comments AGAP (test code = AGAP) 12.4 10.0-20.0 [place] 815533-01-04 01:53:00 Test Item Value Reference Range Interpretation Comments Calcium Lvl (test code = Calcium Lvl) 8.4 8.5-10.5 [place] 815533-01-04 01:53:00 Test Item Value Reference Range Interpretation Comments B/C Ratio (test code = B/C Ratio) 5 1 6-25 [place] 815533-01-04 01:53:00 Test Item Value Reference Range Interpretation Comments Total Protein (test code = Total 6.5 6.4-8.4 Protein) [facility] HospitalVifxbbmDFNZRKOYK0689-76-95 01:53:00 Test Item Value Reference Range Interpretation Comments Albumin Lvl (test code = Albumin Lvl) 2.5 3.5-5.0 [place] 815533-01-04 01:53:00 Test Item Value Reference Range Interpretation Comments Globulin (test code = Globulin) 4.0 2.7-4.2 [place] 815533-01-04 01:53:00 Test Item Value Reference Range Interpretation Comments A/G Ratio (test code = A/G Ratio) 0.6 1 0.7-1.6 [place] 815533-01-04 01:53:00 Test Item Value Reference Range Interpretation Comments ALT (test code = ALT) 6 See_Comment [Auto mated message] The system which ge nerated this result transmit sally reference range : <=65. The reference range was not used to interpr et this result as henrry l/abnormal. [place] 815533-01-04 01:53:00 Test Item Value Reference Range Interpretation Comments AST (test code = AST) 17 See_Comment [Auto mated message] The system which ge nerated this result transmit sally reference range : <=37. The reference range was not used to interpr et this result as henrry l/abnormal. [place] 815533-01-04 01:53:00 Test Item Value Reference Range Interpretation Comments Alk Phos (test code = Alk Phos) 57 39-136 [place] 815533-01-04 01:53:00 Test Item Value Reference Range Interpretation Comments Bili Total (test code = Bili Total) 0.4 0.2-1.3 [place] 815533-01-04 01:53:00 Test Item Value Reference Range Interpretation Comments eGFR (test code = eGFR) 6 [facility] HospitalPlxqmppWDSHHLVSJA6113-39-07 01:53:00 Test Item Value Reference Range Interpretation Comments WBC (test code = WBC) 4.1 3.7-10.4 [place] 111103-01-04 01:53:00 Test Item Value Reference Range Interpretation Comments RBC (test code = RBC) 3.34 4.20-5.40 [facility] HospitalIctisnvAERKWJSXWP7209-38-93 01:53:00 Test Item Value Reference Range Interpretation Comments Hgb (test code = Hgb) 11.6 12.0-16.0 [place] 111103-01-04 01:53:00 Test Item Value Reference Range Interpretation Comments Hct (test code = Hct) 35.9 36.0-48.0 [facility] HospitalQihlrbfULOQQGVJIH9451-58-90 01:53:00 Test Item Value Reference Range Interpretation Comments MCV (test code = MCV) 107.5 80.0-98.0 [facility] HospitalOoedgjeMUSQMQHVOF1520-15-78 01:53:00 Test Item Value Reference Range Interpretation Comments MCH (test code = MCH) 34.7 pg 27.0-31.0 [facility] HospitalOqubzfgHEUFCHFRUT0027-22-30 01:53:00 Test Item Value Reference Range Interpretation Comments MCHC (test code = MCHC) 32.3 32.0-36.0 [place] 111103-01-04 01:53:00 Test Item Value Reference Range Interpretation Comments RDW (test code = RDW) 18.0 11.5-14.5 [place] 111103-01-04 01:53:00 Test Item Value Reference Range Interpretation Comments Platelet (test code = Platelet) 358 133-450 [facility] HospitalRengizoCZQOOIHTGX7791-26-02 01:53:00 Test Item Value Reference Range Interpretation Comments MPV (test code = MPV) 8.7 7.4-10.4 [place] [address]-01-04 01:53:00 Test Item Value Reference Range Interpretation Comments Segs (test code = Segs) 38.6 45.0-75.0 [place] [address]-01-04 01:53:00 Test Item Value Reference Range Interpretation Comments Lymphocytes (test code = Lymphocytes) 51.5 20.0-40.0 [place] [address]-01-04 01:53:00 Test Item Value Reference Range Interpretation Comments Monocytes (test code = Monocytes) 8.4 2.0-12.0 [place] [address]-01-04 01:53:00 Test Item Value Reference Range Interpretation Comments Eosinophils (test code = 0.4 See_Comment [A utomated message] The Eosinophils) system which ge nerated this result tra nsmitted reference range : <=4.0. The reference r calli was not used to int erpret this result as normal/abnormal . [place] [address]-01-04 01:53:00 Test Item Value Reference Range Interpretation Comments Basophils (test code = 1.1 See_Comment [Aut omated message] The Basophils) system which ge nerated this result tra nsmitted reference range : <=1.0. The reference r calli was not used to int erpret this result as normal/abnormal . [place] 111103-01-04 01:53:00 Test Item Value Reference Range Interpretation Comments Neutrophils # (test code = Neutrophils 1.6 1.5-8.1 #) [place] [address]-01-04 01:53:00 Test Item Value Reference Range Interpretation Comments Lymphocytes # (test code = Lymphocytes 2.1 1.0-5.5 #) [place] [address]-01-04 01:53:00 Test Item Value Reference Range Interpretation Comments Monocytes # (test code 0.3 See_Comment [Aut omated message] The = Monocytes #) system which generated this result tra nsmitted reference range : <=0.8. The reference r calli was not used to int erpret this result as normal/abnormal . [place] [address]-01-04 01:53:00 Test Item Value Reference Range Interpretation Comments Macrocyte (test code = 1+ *ABN*(03/28/22 7:53 Macrocyte) PM) [facility] HospitalPfulgchFGGKGDAHO9579-78-82 01:53:00 Test Item Value Reference Range Interpretation Comments Glucose Lvl (test code = Glucose Lvl) 73 70-99 [place] 815533-01-04 01:53:00 Test Item Value Reference Range Interpretation Comments BUN (test code = BUN) 33 7-22 [place] 815533-01-04 01:53:00 Test Item Value Reference Range Interpretation Comments Creatinine Lvl (test code = Creatinine 6.87 0.50-1.40 Lvl) [facility] HospitalGjflwuoMNVZYPRAH7122-65-85 01:53:00 Test Item Value Reference Range Interpretation Comments Sodium Lvl (test code = Sodium Lvl) 137 135-145 [place] 815533-01-04 01:53:00 Test Item Value Reference Range Interpretation Comments Potassium Lvl (test code = Potassium 3.4 3.5-5.1 Lvl) [facility] HospitalHbhdyprUMJJGNXYU4354-12-53 01:53:00 Test Item Value Reference Range Interpretation Comments Chloride Lvl (test code = Chloride Lvl) 102 95-109 [facility] HospitalPfruxjrVBYYBXBAJ8073-90-99 01:53:00 Test Item Value Reference Range Interpretation Comments CO2 (test code = CO2) 26 24-32 [facility] HospitalMkuqsgnYDCFWEFKA1460-29-98 01:53:00 Test Item Value Reference Range Interpretation Comments AGAP (test code = AGAP) 12.4 10.0-20.0 [place] 815533-01-04 01:53:00 Test Item Value Reference Range Interpretation Comments Calcium Lvl (test code = Calcium Lvl) 8.4 8.5-10.5 [facility] HospitalOtkvvfaHWJXMENCI3566-97-01 01:53:00 Test Item Value Reference Range Interpretation Comments B/C Ratio (test code = B/C Ratio) 5 1 6-25 [facility] HospitalNtirkxmVQYXBUFRV7429-44-44 01:53:00 Test Item Value Reference Range Interpretation Comments Total Protein (test code = Total 6.5 6.4-8.4 Protein) [facility] HospitalEkgztizYDCFYYNJT9665-94-81 01:53:00 Test Item Value Reference Range Interpretation Comments Albumin Lvl (test code = Albumin Lvl) 2.5 3.5-5.0 [facility]PbwvamySQGPNUVTF8479-32-56 01:53:00 Test Item Value Reference Range Interpretation Comments Globulin (test code = Globulin) 4.0 2.7-4.2 [facility] LakeYzyvsddFADGDCQYN6925-90-03 01:53:00 Test Item Value Reference Range Interpretation Comments A/G Ratio (test code = A/G Ratio) 0.6 1 0.7-1.6 [facility] LakeRzqonhmZLDJANHVX6673-81-08 01:53:00 Test Item Value Reference Range Interpretation Comments ALT (test code = ALT) 6 See_Comment [Auto mated message] The system which ge nerated this result transmit sally reference range : <=65. The reference range was not used to interpr et this result as henrry l/abnormal. [facility] LakeVdsznfeCRHETGPPO6416-30-80 01:53:00 Test Item Value Reference Range Interpretation Comments AST (test code = AST) 17 See_Comment [Auto mated message] The system which ge nerated this result transmit sally reference range : <=37. The reference range was not used to interpr et this result as henrry l/abnormal. [facility] QpsbaxuYRHXGEEJB1421-06-24 01:53:00 Test Item Value Reference Range Interpretation Comments Alk Phos (test code = Alk Phos) 57 39-136 [facility] BqqrayrMRYRWGCNJ8336-04-31 01:53:00 Test Item Value Reference Range Interpretation Comments Bili Total (test code = Bili Total) 0.4 0.2-1.3 [facility] LakeXwyxifqFWYWBVGHU1908-01-39 01:53:00 Test Item Value Reference Range Interpretation Comments eGFR (test code = eGFR) 6 [facility] LakeFtnrxgfDOAFTXXXGJ4192-13-25 01:53:00 Test Item Value Reference Range Interpretation Comments WBC (test code = WBC) 4.1 3.7-10.4 [facility] LakeYcfafjwBLBKRXVDUN3617-98-70 01:53:00 Test Item Value Reference Range Interpretation Comments RBC (test code = RBC) 3.34 4.20-5.40 [facility] LakeNamynzqDPJTRSLCKB3759-24-22 01:53:00 Test Item Value Reference Range Interpretation Comments Hgb (test code = Hgb) 11.6 12.0-16.0 [facility] LakeSukbgynLLWGJKWXLN2062-52-01 01:53:00 Test Item Value Reference Range Interpretation Comments Hct (test code = Hct) 35.9 36.0-48.0 [place] 111103-01-04 01:53:00 Test Item Value Reference Range Interpretation Comments MCV (test code = MCV) 107.5 80.0-98.0 [place] 111103-01-04 01:53:00 Test Item Value Reference Range Interpretation Comments MCH (test code = MCH) 34.7 pg 27.0-31.0 [facility] HospitalDgcvbssFFLCOJEJYE4815-07-36 01:53:00 Test Item Value Reference Range Interpretation Comments MCHC (test code = MCHC) 32.3 32.0-36.0 [place] 111103-01-04 01:53:00 Test Item Value Reference Range Interpretation Comments RDW (test code = RDW) 18.0 11.5-14.5 [place] 111103-01-04 01:53:00 Test Item Value Reference Range Interpretation Comments Platelet (test code = Platelet) 358 133-450 [facility] HospitalHbzmznlYXIIFSSLUF8944-01-72 01:53:00 Test Item Value Reference Range Interpretation Comments MPV (test code = MPV) 8.7 7.4-10.4 [place] 111103-01-04 01:53:00 Test Item Value Reference Range Interpretation Comments Segs (test code = Segs) 38.6 45.0-75.0 [facility] HospitalXnfcbpsUJUHAUZFHE5130-76-90 01:53:00 Test Item Value Reference Range Interpretation Comments Lymphocytes (test code = Lymphocytes) 51.5 20.0-40.0 [place] 111103-01-04 01:53:00 Test Item Value Reference Range Interpretation Comments Monocytes (test code = Monocytes) 8.4 2.0-12.0 [place] [address]-01-04 01:53:00 Test Item Value Reference Range Interpretation Comments Eosinophils (test code = 0.4 See_Comment [A utomated message] The Eosinophils) system which ge nerated this result tra nsmitted reference range : <=4.0. The reference r calli was not used to int erpret this result as normal/abnormal . [place] 111103-01-04 01:53:00 Test Item Value Reference Range Interpretation Comments Basophils (test code = 1.1 See_Comment [Aut omated message] The Basophils) system which ge nerated this result tra nsmitted reference range : <=1.0. The reference r calli was not used to int erpret this result as normal/abnormal . [place] [address]-01-04 01:53:00 Test Item Value Reference Range Interpretation Comments Neutrophils # (test code = Neutrophils 1.6 1.5-8.1 #) [place] [address]-01-04 01:53:00 Test Item Value Reference Range Interpretation Comments Lymphocytes # (test code = Lymphocytes 2.1 1.0-5.5 #) [place] [address]-01-04 01:53:00 Test Item Value Reference Range Interpretation Comments Monocytes # (test code 0.3 See_Comment [Aut omated message] The = Monocytes #) system which generated this result tra nsmitted reference range : <=0.8. The reference r calli was not used to int erpret this result as normal/abnormal . [place] [address]-01-04 01:53:00 Test Item Value Reference Range Interpretation Comments Macrocyte (test code = 1+ *ABN*(03/28/22 7:53 Macrocyte) PM) [facility]2022-12-08 17:20:00 Test Item Value Reference Range Interpretation Comments Glucose POC (test code = Glucose POC) 114 70-99 [place] 331512-12-08 17:20:00 Test Item Value Reference Range Interpretation Comments Gluc POC Comment 1 (test code Notified RN/MD = Gluc POC Comment 1) [place] 331512-12-08 17:20:00 Test Item Value Reference Range Interpretation Comments Gluc POC Comment 2 (test code = Cleaned Meter Gluc POC Comment 2) [place] 331512-12-08 17:20:00 Test Item Value Reference Range Interpretation Comments Glucose POC (test code = Glucose POC) 114 70-99 [place] 331512-12-08 17:20:00 Test Item Value Reference Range Interpretation Comments Gluc POC Comment 1 (test code Notified RN/MD = Gluc POC Comment 1) [place] [address]-12-08 17:20:00 Test Item Value Reference Range Interpretation Comments Gluc POC Comment 2 (test code = Cleaned Meter Gluc POC Comment 2) [place] 331512-12-08 17:20:00 Test Item Value Reference Range Interpretation Comments Glucose POC (test code = Glucose POC) 114 70-99 [place] [address]-12-08 17:20:00 Test Item Value Reference Range Interpretation Comments Gluc POC Comment 1 (test code Notified RN/MD = Gluc POC Comment 1) [place] [address]-12-08 17:20:00 Test Item Value Reference Range Interpretation Comments Gluc POC Comment 2 (test code = Cleaned Meter Gluc POC Comment 2) [place] 331512-12-08 17:20:00 Test Item Value Reference Range Interpretation Comments Glucose POC (test code = Glucose POC) 114 70-99 [place] [address]-12-08 17:20:00 Test Item Value Reference Range Interpretation Comments Gluc POC Comment 1 (test code Notified RN/MD = Gluc POC Comment 1) [place] 331512-12-08 17:20:00 Test Item Value Reference Range Interpretation Comments Gluc POC Comment 2 (test code = Cleaned Meter Gluc POC Comment 2) [place] 331512-12-08 17:20:00 Test Item Value Reference Range Interpretation Comments Glucose POC (test code = Glucose POC) 114 70-99 [place] [address]-12-08 17:20:00 Test Item Value Reference Range Interpretation Comments Gluc POC Comment 1 (test code Notified RN/MD = Gluc POC Comment 1) [place] 331512-12-08 17:20:00 Test Item Value Reference Range Interpretation Comments Gluc POC Comment 2 (test code = Cleaned Meter Gluc POC Comment 2) [place] 331512-12-08 17:20:00 Test Item Value Reference Range Interpretation Comments Glucose POC (test code = Glucose POC) 114 70-99 [place] [address]-12-08 17:20:00 Test Item Value Reference Range Interpretation Comments Gluc POC Comment 1 (test code Notified RN/MD = Gluc POC Comment 1) [place] 331512-12-08 17:20:00 Test Item Value Reference Range Interpretation Comments Gluc POC Comment 2 (test code = Cleaned Meter Gluc POC Comment 2) [place] 111102-12-08 16:09:00 Test Item Value Reference Range Interpretation Comments Eosinophils (test code = 2.2 See_Comment [A utomated message] The Eosinophils) system which ge nerated this result tra nsmitted reference range : <=4.0. The reference r calli was not used to int erpret this result as normal/abnormal . [facility] HospitalGjzgghmSWTNVRXZTZ1588-10-98 16:09:00 Test Item Value Reference Range Interpretation Comments Basophils (test code = 1.2 See_Comment [Aut omated message] The Basophils) system which ge nerated this result tra nsmitted reference range : <=1.0. The reference r calli was not used to int erpret this result as normal/abnormal . [place] 111102-12-08 16:09:00 Test Item Value Reference Range Interpretation Comments Neutrophils # (test code = Neutrophils 2.1 1.5-8.1 #) [place] 111102-12-08 16:09:00 Test Item Value Reference Range Interpretation Comments Lymphocytes # (test code = Lymphocytes 1.6 1.0-5.5 #) [place] 111102-12-08 16:09:00 Test Item Value Reference Range Interpretation Comments Monocytes # (test code 0.3 See_Comment [Aut omated message] The = Monocytes #) system which generated this result tra nsmitted reference range : <=0.8. The reference r calli was not used to int erpret this result as normal/abnormal . [facility] HospitalNqyrmrqFRHYGFBNHV7772-93-82 16:09:00 Test Item Value Reference Range Interpretation Comments Eosinophils # (test code 0.1 See_Comment [A utomated message] The = Eosinophils #) system whic h generated this result tra nsmitted reference range : <=0.5. The reference r calli was not used to int erpret this result as normal/abnormal . [place] 111102-12-08 16:09:00 Test Item Value Reference Range Interpretation Comments Basophils # (test code 0.1 See_Comment [Aut omated message] The = Basophils #) system which generated this result tra nsmitted reference range : <=0.2. The reference r calli was not used to int erpret this result as normal/abnormal . [facility] HospitalSrfewjeGSAQWVVWBR7282-48-75 16:09:00 Test Item Value Reference Range Interpretation Comments WBC (test code = WBC) 4.1 3.7-10.4 [place] 111102-12-08 16:09:00 Test Item Value Reference Range Interpretation Comments RBC (test code = RBC) 2.88 4.20-5.40 [place] [address]-12-08 16:09:00 Test Item Value Reference Range Interpretation Comments Hgb (test code = Hgb) 9.8 12.0-16.0 [place] [address]-12-08 16:09:00 Test Item Value Reference Range Interpretation Comments Hct (test code = Hct) 29.7 36.0-48.0 [place] 111102-12-08 16:09:00 Test Item Value Reference Range Interpretation Comments MCV (test code = MCV) 103.4 80.0-98.0 [place] 111102-12-08 16:09:00 Test Item Value Reference Range Interpretation Comments MCH (test code = MCH) 34.0 pg 27.0-31.0 [place] [address]-12-08 16:09:00 Test Item Value Reference Range Interpretation Comments MCHC (test code = MCHC) 32.9 32.0-36.0 [place] 111102-12-08 16:09:00 Test Item Value Reference Range Interpretation Comments RDW (test code = RDW) 17.5 11.5-14.5 [place] [address]-12-08 16:09:00 Test Item Value Reference Range Interpretation Comments Platelet (test code = Platelet) 253 133-450 [place] 111102-12-08 16:09:00 Test Item Value Reference Range Interpretation Comments MPV (test code = MPV) 7.8 7.4-10.4 [place] 111102-12-08 16:09:00 Test Item Value Reference Range Interpretation Comments Segs (test code = Segs) 50.9 45.0-75.0 [place] [address]-12-08 16:09:00 Test Item Value Reference Range Interpretation Comments Lymphocytes (test code = Lymphocytes) 39.1 20.0-40.0 [place] [address]-12-08 16:09:00 Test Item Value Reference Range Interpretation Comments Monocytes (test code = Monocytes) 6.6 2.0-12.0 [place] [address]-12-08 16:09:00 Test Item Value Reference Range Interpretation Comments Eosinophils (test code = 2.2 See_Comment [A utomated message] The Eosinophils) system which ge nerated this result tra nsmitted reference range : <=4.0. The reference r calli was not used to int erpret this result as normal/abnormal . [place] 111102-12-08 16:09:00 Test Item Value Reference Range Interpretation Comments Basophils (test code = 1.2 See_Comment [Aut omated message] The Basophils) system which ge nerated this result tra nsmitted reference range : <=1.0. The reference r calli was not used to int erpret this result as normal/abnormal . [place] 111102-12-08 16:09:00 Test Item Value Reference Range Interpretation Comments Neutrophils # (test code = Neutrophils 2.1 1.5-8.1 #) [place] [address]-12-08 16:09:00 Test Item Value Reference Range Interpretation Comments Lymphocytes # (test code = Lymphocytes 1.6 1.0-5.5 #) [place] 111102-12-08 16:09:00 Test Item Value Reference Range Interpretation Comments Monocytes # (test code 0.3 See_Comment [Aut omated message] The = Monocytes #) system which generated this result tra nsmitted reference range : <=0.8. The reference r calli was not used to int erpret this result as normal/abnormal . [place] 111102-12-08 16:09:00 Test Item Value Reference Range Interpretation Comments Eosinophils # (test code 0.1 See_Comment [A utomated message] The = Eosinophils #) system whic h generated this result tra nsmitted reference range : <=0.5. The reference r calli was not used to int erpret this result as normal/abnormal . [facility]709[facility] 16:09:00 Test Item Value Reference Range Interpretation Comments Basophils # (test code 0.1 See_Comment [Aut omated message] The = Basophils #) system which generated this result tra nsmitted reference range : <=0.2. The reference r calli was not used to int erpret this result as normal/abnormal . [place] 111102-12-08 16:09:00 Test Item Value Reference Range Interpretation Comments WBC (test code = WBC) 4.1 3.7-10.4 [place] 111102-12-08 16:09:00 Test Item Value Reference Range Interpretation Comments RBC (test code = RBC) 2.88 4.20-5.40 [facility]HyzwrrjHPIYGCQUPH1223-93-89 16:09:00 Test Item Value Reference Range Interpretation Comments Hgb (test code = Hgb) 9.8 12.0-16.0 [place] 111102-12-08 16:09:00 Test Item Value Reference Range Interpretation Comments Hct (test code = Hct) 29.7 36.0-48.0 [place] 111102-12-08 16:09:00 Test Item Value Reference Range Interpretation Comments MCV (test code = MCV) 103.4 80.0-98.0 [place] 111102-12-08 16:09:00 Test Item Value Reference Range Interpretation Comments MCH (test code = MCH) 34.0 pg 27.0-31.0 [place] 111102-12-08 16:09:00 Test Item Value Reference Range Interpretation Comments MCHC (test code = MCHC) 32.9 32.0-36.0 [place] 111102-12-08 16:09:00 Test Item Value Reference Range Interpretation Comments RDW (test code = RDW) 17.5 11.5-14.5 [facility] HospitalLadjwkdBDOKUHCRTW5696-05-18 16:09:00 Test Item Value Reference Range Interpretation Comments Platelet (test code = Platelet) 253 133-450 [facility] HospitalMzbbklmPEYVUNUJTV8217-83-27 16:09:00 Test Item Value Reference Range Interpretation Comments MPV (test code = MPV) 7.8 7.4-10.[address] [facility]2022-12-08 16:09:00 Test Item Value Reference Range Interpretation Comments Glucose Lvl (test code = Glucose Lvl) 140 70-[address] [facility]2022-12-08 16:09:00 Test Item Value Reference Range Interpretation Comments BUN (test code = BUN) 26 7-22 [place] 196222-12-08 16:09:00 Test Item Value Reference Range Interpretation Comments Creatinine Lvl (test code = Creatinine 5.82 0.50-1.40 Lvl) [facility]2022-12-08 16:09:00 Test Item Value Reference Range Interpretation Comments Sodium Lvl (test code = Sodium Lvl) 135 135-[address] [facility]2022-12-08 16:09:00 Test Item Value Reference Range Interpretation Comments Potassium Lvl (test code = Potassium 3.0 3.5-5.1 Lvl) [facility]2022-12-08 16:09:00 Test Item Value Reference Range Interpretation Comments Chloride Lvl (test code = Chloride Lvl) 100 95-[address] [facility]2022-12-08 16:09:00 Test Item Value Reference Range Interpretation Comments CO2 (test code = CO2) 26 24-32 [facility] [id number] 16:09:00 Test Item Value Reference Range Interpretation Comments AGAP (test code = AGAP) 12.0 10.0-20.0 [facility] [id number] 16:09:00 Test Item Value Reference Range Interpretation Comments Calcium Lvl (test code = Calcium Lvl) 8.1 8.5-10.5 [facility] [id number] 16:09:00 Test Item Value Reference Range Interpretation Comments B/C Ratio (test code = B/C Ratio) 4 1 6-25 [facility] [id number] 16:09:00 Test Item Value Reference Range Interpretation Comments Total Protein (test code = Total 6.3 6.4-8.4 Protein) [facility]2022-12-08 16:09:00 Test Item Value Reference Range Interpretation Comments Albumin Lvl (test code = Albumin Lvl) 2.3 3.5-5.0 [facility] [id number] 16:09:00 Test Item Value Reference Range Interpretation Comments Globulin (test code = Globulin) 4.0 2.7-4.2 [facility] [id number] 16:09:00 Test Item Value Reference Range Interpretation Comments A/G Ratio (test code = A/G Ratio) 0.6 1 0.7-1.6 [place] 196222-12-08 16:09:00 Test Item Value Reference Range Interpretation Comments ALT (test code = ALT) no gt See_Comment [Auto mated message] The system which ge nerated this result transmit sally reference range : <=65. The reference range was not used to interpr et this result as henrry l/abnormal. [place] 196222-12-08 16:09:00 Test Item Value Reference Range Interpretation Comments AST (test code = AST) 11 See_Comment [Auto mated message] The system which ge nerated this result transmit sally reference range : <=37. The reference range was not used to interpr et this result as henrry l/abnormal. [place] 196222-12-08 16:09:00 Test Item Value Reference Range Interpretation Comments Alk Phos (test code = Alk Phos) 92 39-136 [place] 196222-12-08 16:09:00 Test Item Value Reference Range Interpretation Comments Bili Total (test code = Bili Total) 0.5 0.2-1.3 [place] 196222-12-08 16:09:00 Test Item Value Reference Range Interpretation Comments eGFR (test code = eGFR) 8 [place] 196222-12-08 16:09:00 Test Item Value Reference Range Interpretation Comments Magnesium Lvl (test code = Magnesium 2.5 1.8-2.4 Lvl) [facility]ot[facility]XZDCYMDSY4908[facility]84-79 16:09:00 Test Item Value Reference Range Interpretation Comments Glucose Lvl (test code = Glucose Lvl) 140 70-99 [facility] HospitalTqabflwCLBZWOYRS0565-82-56 16:09:00 Test Item Value Reference Range Interpretation Comments BUN (test code = BUN) 26 7-22 [place] 815532-12-08 16:09:00 Test Item Value Reference Range Interpretation Comments Creatinine Lvl (test code = Creatinine 5.82 0.50-1.40 Lvl) [place] 815532-12-08 16:09:00 Test Item Value Reference Range Interpretation Comments Sodium Lvl (test code = Sodium Lvl) 135 135-145 [place] 815532-12-08 16:09:00 Test Item Value Reference Range Interpretation Comments Potassium Lvl (test code = Potassium 3.0 3.5-5.1 Lvl) [place] 815532-12-08 16:09:00 Test Item Value Reference Range Interpretation Comments Chloride Lvl (test code = Chloride Lvl) 100 95-109 [place] 815532-12-08 16:09:00 Test Item Value Reference Range Interpretation Comments CO2 (test code = CO2) 26 24-32 [facility] HospitalCccecqcJFOPYSSZL5443-88-10 16:09:00 Test Item Value Reference Range Interpretation Comments AGAP (test code = AGAP) 12.0 10.0-20.0 [place] 815532-12-08 16:09:00 Test Item Value Reference Range Interpretation Comments Calcium Lvl (test code = Calcium Lvl) 8.1 8.5-10.5 [facility]IpdgpdxYYVTHJCTG3319-02-03 16:09:00 Test Item Value Reference Range Interpretation Comments B/C Ratio (test code = B/C Ratio) 4 1 6-25 [facility] HospitalTrjhccuYYJBEJBVA0588-76-70 16:09:00 Test Item Value Reference Range Interpretation Comments Total Protein (test code = Total 6.3 6.4-8.4 Protein) [facility] HospitalKeohecdDMYOEBUOD4184-35-21 16:09:00 Test Item Value Reference Range Interpretation Comments Albumin Lvl (test code = Albumin Lvl) 2.3 3.5-5.0 [facility] HospitalSxpemzgEGLEEFLHA4739-37-59 16:09:00 Test Item Value Reference Range Interpretation Comments Globulin (test code = Globulin) 4.0 2.7-4.2 [facility] HospitalMbgowyvDRSDWKSOZ8583-42-62 16:09:00 Test Item Value Reference Range Interpretation Comments A/G Ratio (test code = A/G Ratio) 0.6 1 0.7-1.6 [facility] HospitalZqossdlWOLEHRZVU8661-53-69 16:09:00 Test Item Value Reference Range Interpretation Comments ALT (test code = ALT) no gt See_Comment [Auto mated message] The system which ge nerated this result transmit sally reference range : <=65. The reference range was not used to interpr et this result as henrry l/abnormal. [facility] HospitalGqmdpipYBNYNJJTT0707-61-38 16:09:00 Test Item Value Reference Range Interpretation Comments AST (test code = AST) 11 See_Comment [Auto mated message] The system which ge nerated this result transmit sally reference range : <=37. The reference range was not used to interpr et this result as henrry l/abnormal. [facility]EbpppcjAWOQJWZOP7373-43-48 16:09:00 Test Item Value Reference Range Interpretation Comments Alk Phos (test code = Alk Phos) 92 39-136 [facility] HospitalIttipxtNIMXKLGIZ9625-15-10 16:09:00 Test Item Value Reference Range Interpretation Comments Bili Total (test code = Bili Total) 0.5 0.2-1.3 [facility] HospitalCebinukCNVPABLGZ6850-85-43 16:09:00 Test Item Value Reference Range Interpretation Comments eGFR (test code = eGFR) 8 [facility] HospitalUjppcbxSJZITCCEJ9809-83-51 16:09:00 Test Item Value Reference Range Interpretation Comments Magnesium Lvl (test code = Magnesium 2.5 1.8-2.4 Lvl) [facility] HospitalLcfgwmtHYHLMSOWNO0140-05-92 16:09:00 Test Item Value Reference Range Interpretation Comments Segs (test code = Segs) 50.9 45.0-75.0 [facility] HospitalFrxatzdEMUURHSYYR1701-92-18 16:09:00 Test Item Value Reference Range Interpretation Comments Lymphocytes (test code = Lymphocytes) 39.1 20.0-40.0 [facility] HospitalZrnwvfgRRLWUCYDBS6307-31-09 16:09:00 Test Item Value Reference Range Interpretation Comments Monocytes (test code = Monocytes) 6.6 2.0-12.0 [facility] HospitalUkqweicDUVTSVTMAQ1433-15-90 16:09:00 Test Item Value Reference Range Interpretation Comments Eosinophils (test code = 2.2 See_Comment [A utomated message] The Eosinophils) system which ge nerated this result tra nsmitted reference range : <=4.0. The reference r calli was not used to int erpret this result as normal/abnormal . [facility] HospitalAszmjvjXTRJBAOUCS3010-22-48 16:09:00 Test Item Value Reference Range Interpretation Comments Basophils (test code = 1.2 See_Comment [Aut omated message] The Basophils) system which ge nerated this result tra nsmitted reference range : <=1.0. The reference r calli was not used to int erpret this result as normal/abnormal . [facility] HospitalXkbsjxnJRCIGTSVTB9242-49-09 16:09:00 Test Item Value Reference Range Interpretation Comments Neutrophils # (test code = Neutrophils 2.1 1.5-8.1 #) [facility] HospitalRqetgmgAOYZTLEFPJ7542-28-60 16:09:00 Test Item Value Reference Range Interpretation Comments Lymphocytes # (test code = Lymphocytes 1.6 1.0-5.5 #) [place] 111102-12-08 16:09:00 Test Item Value Reference Range Interpretation Comments Monocytes # (test code 0.3 See_Comment [Aut omated message] The = Monocytes #) system which generated this result tra nsmitted reference range : <=0.8. The reference r calli was not used to int erpret this result as normal/abnormal . [facility] HospitalBlyyvvaUUHRLSGYWZ9181-66-81 16:09:00 Test Item Value Reference Range Interpretation Comments Eosinophils # (test code 0.1 See_Comment [A utomated message] The = Eosinophils #) system whic h generated this result tra nsmitted reference range : <=0.5. The reference r calli was not used to int erpret this result as normal/abnormal . [place] 111102-12-08 16:09:00 Test Item Value Reference Range Interpretation Comments Basophils # (test code 0.1 See_Comment [Aut omated message] The = Basophils #) system which generated this result tra nsmitted reference range : <=0.2. The reference r calli was not used to int erpret this result as normal/abnormal . [place] 111102-12-08 16:09:00 Test Item Value Reference Range Interpretation Comments WBC (test code = WBC) 4.1 3.7-10.4 [place] 111102-12-08 16:09:00 Test Item Value Reference Range Interpretation Comments RBC (test code = RBC) 2.88 4.20-5.40 [place] 111102-12-08 16:09:00 Test Item Value Reference Range Interpretation Comments Hgb (test code = Hgb) 9.8 12.0-16.0 [place] [address]-12-08 16:09:00 Test Item Value Reference Range Interpretation Comments Hct (test code = Hct) 29.7 36.0-48.0 [place] [address]-12-08 16:09:00 Test Item Value Reference Range Interpretation Comments MCV (test code = MCV) 103.4 80.0-98.0 [place] [address]-12-08 16:09:00 Test Item Value Reference Range Interpretation Comments MCH (test code = MCH) 34.0 pg 27.0-31.0 [place] [address]-12-08 16:09:00 Test Item Value Reference Range Interpretation Comments MCHC (test code = MCHC) 32.9 32.0-36.0 [facility] HospitalJylhwtaBKBTPDRRUI3937-24-23 16:09:00 Test Item Value Reference Range Interpretation Comments RDW (test code = RDW) 17.5 11.5-14.5 [facility] HospitalClvnrdsDBRJKKDLEB9897-54-60 16:09:00 Test Item Value Reference Range Interpretation Comments Platelet (test code = Platelet) 253 133-450 [facility] HospitalVdtsbuhYRRJUCBHUX3007-07-28 16:09:00 Test Item Value Reference Range Interpretation Comments MPV (test code = MPV) 7.8 7.4-10.4 [facility] HospitalJvrgbhgQWDSDEHKHH0380-38-11 16:09:00 Test Item Value Reference Range Interpretation Comments Segs (test code = Segs) 50.9 45.0-75.0 [facility] HospitalIxxalmdOINAELDJYH3387-87-74 16:09:00 Test Item Value Reference Range Interpretation Comments Lymphocytes (test code = Lymphocytes) 39.1 20.0-40.0 [facility] HospitalDntzesrJOETHGOYCH1904-39-10 16:09:00 Test Item Value Reference Range Interpretation Comments Monocytes (test code = Monocytes) 6.6 2.0-12.0 [facility] HospitalOdgbifnEFSANEPHVW3789-59-91 16:09:00 Test Item Value Reference Range Interpretation Comments Eosinophils (test code = 2.2 See_Comment [A utomated message] The Eosinophils) system which ge nerated this result tra nsmitted reference range : <=4.0. The reference r calli was not used to int erpret this result as normal/abnormal . [facility] HospitalVmhfnowBNAFGSVLNM4859-72-47 16:09:00 Test Item Value Reference Range Interpretation Comments Basophils (test code = 1.2 See_Comment [Aut omated message] The Basophils) system which ge nerated this result tra nsmitted reference range : <=1.0. The reference r calli was not used to int erpret this result as normal/abnormal . [facility] HospitalYuxzbyqYEFXEUJJHK7952-16-86 16:09:00 Test Item Value Reference Range Interpretation Comments Neutrophils # (test code = Neutrophils 2.1 1.5-8.1 #) [facility] HospitalRbrponoICJXDXRFXF5950-98-78 16:09:00 Test Item Value Reference Range Interpretation Comments Lymphocytes # (test code = Lymphocytes 1.6 1.0-5.5 #) [facility] HospitalOrbujmrYDUJTBLWBE9418-37-99 16:09:00 Test Item Value Reference Range Interpretation Comments Monocytes # (test code 0.3 See_Comment [Aut omated message] The = Monocytes #) system which generated this result tra nsmitted reference range : <=0.8. The reference r calli was not used to int erpret this result as normal/abnormal . [facility] HospitalOpoctuiIIPJTQIDWE7153-26-72 16:09:00 Test Item Value Reference Range Interpretation Comments Eosinophils # (test code 0.1 See_Comment [A utomated message] The = Eosinophils #) system whic h generated this result tra nsmitted reference range : <=0.5. The reference r clali was not used to int erpret this result as normal/abnormal . [place] [address]-12-08 16:09:00 Test Item Value Reference Range Interpretation Comments Basophils # (test code 0.1 See_Comment [Aut omated message] The = Basophils #) system which generated this result tra nsmitted reference range : <=0.2. The reference r calli was not used to int erpret this result as normal/abnormal . [place] 111102-12-08 16:09:00 Test Item Value Reference Range Interpretation Comments WBC (test code = WBC) 4.1 3.7-10.4 [place] [address]-12-08 16:09:00 Test Item Value Reference Range Interpretation Comments RBC (test code = RBC) 2.88 4.20-5.40 [place] [address]-12-08 16:09:00 Test Item Value Reference Range Interpretation Comments Hgb (test code = Hgb) 9.8 12.0-16.0 [place] [address]-12-08 16:09:00 Test Item Value Reference Range Interpretation Comments Hct (test code = Hct) 29.7 36.0-48.0 [place] [address]-12-08 16:09:00 Test Item Value Reference Range Interpretation Comments MCV (test code = MCV) 103.4 80.0-98.0 [place] [address]-12-08 16:09:00 Test Item Value Reference Range Interpretation Comments MCH (test code = MCH) 34.0 pg 27.0-31.0 [place] [address]-12-08 16:09:00 Test Item Value Reference Range Interpretation Comments MCHC (test code = MCHC) 32.9 32.0-36.0 [place] [address]-12-08 16:09:00 Test Item Value Reference Range Interpretation Comments RDW (test code = RDW) 17.5 11.5-14.5 [place] 111102-12-08 16:09:00 Test Item Value Reference Range Interpretation Comments Platelet (test code = Platelet) 253 133-450 [place] 111102-12-08 16:09:00 Test Item Value Reference Range Interpretation Comments MPV (test code = MPV) 7.8 7.4-10.4 [place] 196222-12-08 16:09:00 Test Item Value Reference Range Interpretation Comments Glucose Lvl (test code = Glucose Lvl) 140 70-99 [place] 196222-12-08 16:09:00 Test Item Value Reference Range Interpretation Comments BUN (test code = BUN) 26 7-22 [place] 196222-12-08 16:09:00 Test Item Value Reference Range Interpretation Comments Creatinine Lvl (test code = Creatinine 5.82 0.50-1.40 Lvl) [place] 196222-12-08 16:09:00 Test Item Value Reference Range Interpretation Comments Sodium Lvl (test code = Sodium Lvl) 135 135-145 [place] 196222-12-08 16:09:00 Test Item Value Reference Range Interpretation Comments Potassium Lvl (test code = Potassium 3.0 3.5-5.1 Lvl) [place] 196222-12-08 16:09:00 Test Item Value Reference Range Interpretation Comments Chloride Lvl (test code = Chloride Lvl) 100 95-109 [place] 196222-12-08 16:09:00 Test Item Value Reference Range Interpretation Comments CO2 (test code = CO2) 26 24-32 [place] 196222-12-08 16:09:00 Test Item Value Reference Range Interpretation Comments AGAP (test code = AGAP) 12.0 10.0-20.0 [place] 196222-12-08 16:09:00 Test Item Value Reference Range Interpretation Comments Calcium Lvl (test code = Calcium Lvl) 8.1 8.5-10.5 [place] 196222-12-08 16:09:00 Test Item Value Reference Range Interpretation Comments B/C Ratio (test code = B/C Ratio) 4 1 6-25 [place] [address]-12-08 16:09:00 Test Item Value Reference Range Interpretation Comments Total Protein (test code = Total 6.3 6.4-8.4 Protein) [place] 196222-12-08 16:09:00 Test Item Value Reference Range Interpretation Comments Albumin Lvl (test code = Albumin Lvl) 2.3 3.5-5.0 [place] 196222-12-08 16:09:00 Test Item Value Reference Range Interpretation Comments Globulin (test code = Globulin) 4.0 2.7-4.2 [place] 196222-12-08 16:09:00 Test Item Value Reference Range Interpretation Comments A/G Ratio (test code = A/G Ratio) 0.6 1 0.7-1.6 [place] 196222-12-08 16:09:00 Test Item Value Reference Range Interpretation Comments ALT (test code = ALT) no gt See_Comment [Auto mated message] The system which ge nerated this result transmit sally reference range : <=65. The reference range was not used to interpr et this result as henrry l/abnormal. [place] 196222-12-08 16:09:00 Test Item Value Reference Range Interpretation Comments AST (test code = AST) 11 See_Comment [Auto mated message] The system which ge nerated this result transmit sally reference range : <=37. The reference range was not used to interpr et this result as henrry l/abnormal. [facility]2022-12-08 16:09:00 Test Item Value Reference Range Interpretation Comments Alk Phos (test code = Alk Phos) 92 39-136 [place] 196222-12-08 16:09:00 Test Item Value Reference Range Interpretation Comments Bili Total (test code = Bili Total) 0.5 0.2-1.3 [place] 196222-12-08 16:09:00 Test Item Value Reference Range Interpretation Comments eGFR (test code = eGFR) [address] [facility]2022-12-08 16:09:00 Test Item Value Reference Range Interpretation Comments Magnesium Lvl (test code = Magnesium 2.5 1.8-2.4 Lvl) [place] 815532-12-08 16:09:00 Test Item Value Reference Range Interpretation Comments Glucose Lvl (test code = Glucose Lvl) 140 70-99 [place] [address]-12-08 16:09:00 Test Item Value Reference Range Interpretation Comments BUN (test code = BUN) 26 7-22 [place] 815532-12-08 16:09:00 Test Item Value Reference Range Interpretation Comments Creatinine Lvl (test code = Creatinine 5.82 0.50-1.40 Lvl) [facility]YwzpayxZNTKUVBQK2876-40-28 16:09:00 Test Item Value Reference Range Interpretation Comments Sodium Lvl (test code = Sodium Lvl) 135 135-145 [place] 815532-12-08 16:09:00 Test Item Value Reference Range Interpretation Comments Potassium Lvl (test code = Potassium 3.0 3.5-5.1 Lvl) [facility] HospitalAxumhccTMURLHORA5560-11-54 16:09:00 Test Item Value Reference Range Interpretation Comments Chloride Lvl (test code = Chloride Lvl) 100 95-109 [facility] HospitalWhdsefyHKWTZXDVW9905-41-71 16:09:00 Test Item Value Reference Range Interpretation Comments CO2 (test code = CO2) 26 24-32 [place] 815532-12-08 16:09:00 Test Item Value Reference Range Interpretation Comments AGAP (test code = AGAP) 12.0 10.0-20.0 [place] 815532-12-08 16:09:00 Test Item Value Reference Range Interpretation Comments Calcium Lvl (test code = Calcium Lvl) 8.1 8.5-10.5 [place] 815532-12-08 16:09:00 Test Item Value Reference Range Interpretation Comments B/C Ratio (test code = B/C Ratio) 4 1 6-25 [place] [address]-12-08 16:09:00 Test Item Value Reference Range Interpretation Comments Total Protein (test code = Total 6.3 6.4-8.4 Protein) [facility]8989[facility] 16:09:00 Test Item Value Reference Range Interpretation Comments Albumin Lvl (test code = Albumin Lvl) 2.3 3.5-5.0 [facility]33[facility] 16:09:00 Test Item Value Reference Range Interpretation Comments Globulin (test code = Globulin) 4.0 2.7-4.2 [facility] LakeTzbcxqoXFJAQTDTR7886-64-01 16:09:00 Test Item Value Reference Range Interpretation Comments A/G Ratio (test code = A/G Ratio) 0.6 1 0.7-1.6 [facility] LakeJisejteCDKKGNWFR6429-36-44 16:09:00 Test Item Value Reference Range Interpretation Comments ALT (test code = ALT) no gt See_Comment [Auto mated message] The system which ge nerated this result transmit sally reference range : <=65. The reference range was not used to interpr et this result as henrry l/abnormal. [facility] LakeRqzcwtcNYRXWUGIO0533-00-39 16:09:00 Test Item Value Reference Range Interpretation Comments AST (test code = AST) 11 See_Comment [Auto mated message] The system which ge nerated this result transmit sally reference range : <=37. The reference range was not used to interpr et this result as henrry l/abnormal. [facility] FhqzkzbSALJDKOVB4367-89-91 16:09:00 Test Item Value Reference Range Interpretation Comments Alk Phos (test code = Alk Phos) 92 39-136 [facility] LakeYvypxysQAWLAHJDG9150-39-29 16:09:00 Test Item Value Reference Range Interpretation Comments Bili Total (test code = Bili Total) 0.5 0.2-1.3 [facility] LakeKjqlxqtPTUYAIPYY6636-15-00 16:09:00 Test Item Value Reference Range Interpretation Comments eGFR (test code = eGFR) 8 [facility] LakeIdosmhmPWHPZZABB4480-96-33 16:09:00 Test Item Value Reference Range Interpretation Comments Magnesium Lvl (test code = Magnesium 2.5 1.8-2.4 Lvl) [facility] LakeNumetjwPGGTAJKQLB0443-07-39 16:09:00 Test Item Value Reference Range Interpretation Comments Segs (test code = Segs) 50.9 45.0-75.0 [facility] LakeHpitgjvNJFSUTFUIJ2648-53-27 16:09:00 Test Item Value Reference Range Interpretation Comments Lymphocytes (test code = Lymphocytes) 39.1 20.0-40.0 [place] 111102-12-08 16:09:00 Test Item Value Reference Range Interpretation Comments Monocytes (test code = Monocytes) 6.6 2.0-12.0 [place] 111102-12-08 16:09:00 Test Item Value Reference Range Interpretation Comments Eosinophils (test code = 2.2 See_Comment [A utomated message] The Eosinophils) system which ge nerated this result tra nsmitted reference range : <=4.0. The reference r calli was not used to int erpret this result as normal/abnormal . [facility]WpkeukyBPWCJBUKCC0601-24-84 16:09:00 Test Item Value Reference Range Interpretation Comments Basophils (test code = 1.2 See_Comment [Aut omated message] The Basophils) system which ge nerated this result tra nsmitted reference range : <=1.0. The reference r calli was not used to int erpret this result as normal/abnormal . [place] 111102-12-08 16:09:00 Test Item Value Reference Range Interpretation Comments Neutrophils # (test code = Neutrophils 2.1 1.5-8.1 #) [place] 111102-12-08 16:09:00 Test Item Value Reference Range Interpretation Comments Lymphocytes # (test code = Lymphocytes 1.6 1.0-5.5 #) [facility] HospitalDrkykpyMGYSZQGZPL0078-51-96 16:09:00 Test Item Value Reference Range Interpretation Comments Monocytes # (test code 0.3 See_Comment [Aut omated message] The = Monocytes #) system which generated this result tra nsmitted reference range : <=0.8. The reference r calli was not used to int erpret this result as normal/abnormal . [place] [address]-12-08 16:09:00 Test Item Value Reference Range Interpretation Comments Eosinophils # (test code 0.1 See_Comment [A utomated message] The = Eosinophils #) system whic h generated this result tra nsmitted reference range : <=0.5. The reference r calli was not used to int erpret this result as normal/abnormal . [facility] HospitalJucdvcsPSSIBKSLLF5565-71-83 16:09:00 Test Item Value Reference Range Interpretation Comments Basophils # (test code 0.1 See_Comment [Aut omated message] The = Basophils #) system which generated this result tra nsmitted reference range : <=0.2. The reference r calli was not used to int erpret this result as normal/abnormal . [facility] HospitalVvdqxktTMFFKCPZZD1086-82-92 16:09:00 Test Item Value Reference Range Interpretation Comments WBC (test code = WBC) 4.1 3.7-10.4 [facility] HospitalFdzcalrEVUXNVOLHA2021-07-71 16:09:00 Test Item Value Reference Range Interpretation Comments RBC (test code = RBC) 2.88 4.20-5.40 [place] 111102-12-08 16:09:00 Test Item Value Reference Range Interpretation Comments Hgb (test code = Hgb) 9.8 12.0-16.0 [place] 111102-12-08 16:09:00 Test Item Value Reference Range Interpretation Comments Hct (test code = Hct) 29.7 36.0-48.0 [place] 111102-12-08 16:09:00 Test Item Value Reference Range Interpretation Comments MCV (test code = MCV) 103.4 80.0-98.0 [place] 111102-12-08 16:09:00 Test Item Value Reference Range Interpretation Comments MCH (test code = MCH) 34.0 pg 27.0-31.0 [place] 111102-12-08 16:09:00 Test Item Value Reference Range Interpretation Comments MCHC (test code = MCHC) 32.9 32.0-36.0 [place] 111102-12-08 16:09:00 Test Item Value Reference Range Interpretation Comments RDW (test code = RDW) 17.5 11.5-14.5 [place] 111102-12-08 16:09:00 Test Item Value Reference Range Interpretation Comments Platelet (test code = Platelet) 253 133-450 [facility] HospitalHszqstwLKOMKUQUJO7251-46-14 16:09:00 Test Item Value Reference Range Interpretation Comments MPV (test code = MPV) 7.8 7.4-10.4 [place] 111102-12-08 16:09:00 Test Item Value Reference Range Interpretation Comments Segs (test code = Segs) 50.9 45.0-75.0 [place] 111102-12-08 16:09:00 Test Item Value Reference Range Interpretation Comments Lymphocytes (test code = Lymphocytes) 39.1 20.0-40.0 [facility] HospitalDxcnqlzBXWOPZFANG1618-49-80 16:09:00 Test Item Value Reference Range Interpretation Comments Monocytes (test code = Monocytes) 6.6 2.0-12.0 [facility] HospitalBoodpfzAZRAQMWXRL6168-70-50 16:09:00 Test Item Value Reference Range Interpretation Comments Eosinophils (test code = 2.2 See_Comment [A utomated message] The Eosinophils) system which ge nerated this result tra nsmitted reference range : <=4.0. The reference r calli was not used to int erpret this result as normal/abnormal . [facility] HospitalYyledwzSGYYMJILCB7533-31-55 16:09:00 Test Item Value Reference Range Interpretation Comments Basophils (test code = 1.2 See_Comment [Aut omated message] The Basophils) system which ge nerated this result tra nsmitted reference range : <=1.0. The reference r calli was not used to int erpret this result as normal/abnormal . [facility] HospitalUuqzqfuFBXVPEJUXE1093-73-11 16:09:00 Test Item Value Reference Range Interpretation Comments Neutrophils # (test code = Neutrophils 2.1 1.5-8.1 #) [facility] HospitalApotbtmBGWMYLCGOP8736-77-91 16:09:00 Test Item Value Reference Range Interpretation Comments Lymphocytes # (test code = Lymphocytes 1.6 1.0-5.5 #) [facility] HospitalColycszFEKTVAOCIG5878-49-22 16:09:00 Test Item Value Reference Range Interpretation Comments Monocytes # (test code 0.3 See_Comment [Aut omated message] The = Monocytes #) system which generated this result tra nsmitted reference range : <=0.8. The reference r calli was not used to int erpret this result as normal/abnormal . [facility] HospitalQhpdfobMHVHKPQWOE6827-21-16 16:09:00 Test Item Value Reference Range Interpretation Comments Eosinophils # (test code 0.1 See_Comment [A utomated message] The = Eosinophils #) system whic h generated this result tra nsmitted reference range : <=0.5. The reference r calli was not used to int erpret this result as normal/abnormal . [facility] HospitalEwvwejeIRJUWCAVBJ6978-52-15 16:09:00 Test Item Value Reference Range Interpretation Comments Basophils # (test code 0.1 See_Comment [Aut omated message] The = Basophils #) system which generated this result tra nsmitted reference range : <=0.2. The reference r calli was not used to int erpret this result as normal/abnormal . [facility] HospitalMcayqasEIJFAESIBP5162-41-01 16:09:00 Test Item Value Reference Range Interpretation Comments WBC (test code = WBC) 4.1 3.7-10.4 [facility] HospitalTfsfrwwGOMYKZVWUS7708-05-51 16:09:00 Test Item Value Reference Range Interpretation Comments RBC (test code = RBC) 2.88 4.20-5.40 [facility] HospitalCaowobxNBRWMRCLTN0337-63-74 16:09:00 Test Item Value Reference Range Interpretation Comments Hgb (test code = Hgb) 9.8 12.0-16.0 [facility] HospitalVvrmmwrJZFLCKKGOH1701-85-06 16:09:00 Test Item Value Reference Range Interpretation Comments Hct (test code = Hct) 29.7 36.0-48.0 [facility] HospitalLxzuchrNENGATLYIC0986-69-43 16:09:00 Test Item Value Reference Range Interpretation Comments MCV (test code = MCV) 103.4 80.0-98.0 [facility] HospitalAsmzjwcAWCAGZNAIR1344-34-06 16:09:00 Test Item Value Reference Range Interpretation Comments MCH (test code = MCH) 34.0 pg 27.0-31.0 [facility] HospitalAmnduzpLNTTXMPSPH5049-29-34 16:09:00 Test Item Value Reference Range Interpretation Comments MCHC (test code = MCHC) 32.9 32.0-36.0 [facility] HospitalWzilyzaPMBCCUNCLX0703-51-37 16:09:00 Test Item Value Reference Range Interpretation Comments RDW (test code = RDW) 17.5 11.5-14.5 [place] 111102-12-08 16:09:00 Test Item Value Reference Range Interpretation Comments Platelet (test code = Platelet) 253 133-450 [facility] HospitalEgivlgxKTQILHJVKY9554-73-93 16:09:00 Test Item Value Reference Range Interpretation Comments MPV (test code = MPV) 7.8 7.4-10.[address] [facility]2022-12-08 16:09:00 Test Item Value Reference Range Interpretation Comments Glucose Lvl (test code = Glucose Lvl) 140 70-99 [place] 196222-12-08 16:09:00 Test Item Value Reference Range Interpretation Comments BUN (test code = BUN) 26 7-[address] [facility]2022-12-08 16:09:00 Test Item Value Reference Range Interpretation Comments Creatinine Lvl (test code = Creatinine 5.82 0.50-1.40 Lvl) [facility]2022-12-08 16:09:00 Test Item Value Reference Range Interpretation Comments Sodium Lvl (test code = Sodium Lvl) 135 135-[address] [facility]2022-12-08 16:09:00 Test Item Value Reference Range Interpretation Comments Potassium Lvl (test code = Potassium 3.0 3.5-5.1 Lvl) [facility]2022-12-08 16:09:00 Test Item Value Reference Range Interpretation Comments Chloride Lvl (test code = Chloride Lvl) 100 95-[address] [facility]2022-12-08 16:09:00 Test Item Value Reference Range Interpretation Comments CO2 (test code = CO2) 26 24-32 [place] 196222-12-08 16:09:00 Test Item Value Reference Range Interpretation Comments AGAP (test code = AGAP) 12.0 10.0-20.[address] [facility]2022-12-08 16:09:00 Test Item Value Reference Range Interpretation Comments Calcium Lvl (test code = Calcium Lvl) 8.1 8.5-10.[address] [facility]2022-12-08 16:09:00 Test Item Value Reference Range Interpretation Comments B/C Ratio (test code = B/C Ratio) 4 1 6-25 [place] 196222-12-08 16:09:00 Test Item Value Reference Range Interpretation Comments Total Protein (test code = Total 6.3 6.4-8.4 Protein) [place] 196222-12-08 16:09:00 Test Item Value Reference Range Interpretation Comments Albumin Lvl (test code = Albumin Lvl) 2.3 3.5-5.0 [place] 196222-12-08 16:09:00 Test Item Value Reference Range Interpretation Comments Globulin (test code = Globulin) 4.0 2.7-4.2 [place] 196222-12-08 16:09:00 Test Item Value Reference Range Interpretation Comments A/G Ratio (test code = A/G Ratio) 0.6 1 0.7-1.6 [place] 196222-12-08 16:09:00 Test Item Value Reference Range Interpretation Comments ALT (test code = ALT) no gt See_Comment [Auto mated message] The system which ge nerated this result transmit sally reference range : <=65. The reference range was not used to interpr et this result as henrry l/abnormal. [place] 196222-12-08 16:09:00 Test Item Value Reference Range Interpretation Comments AST (test code = AST) 11 See_Comment [Auto mated message] The system which ge nerated this result transmit sally reference range : <=37. The reference range was not used to interpr et this result as henrry l/abnormal. [facility]2022-12-08 16:09:00 Test Item Value Reference Range Interpretation Comments Alk Phos (test code = Alk Phos) 92 39-136 [facility]landAuthernative YBZVF1803-41-74 16:09:00 Test Item Value Reference Range Interpretation Comments Bili Total (test code = Bili Total) 0.5 0.2-1.3 [place] 196222-12-08 16:09:00 Test Item Value Reference Range Interpretation Comments eGFR (test code = eGFR) [address] [facility]2022-12-08 16:09:00 Test Item Value Reference Range Interpretation Comments Magnesium Lvl (test code = Magnesium 2.5 1.8-2.4 Lvl) [facility] HospitalXnkezkuIIDQWKLTX9368-17-27 16:09:00 Test Item Value Reference Range Interpretation Comments Glucose Lvl (test code = Glucose Lvl) 140 70-99 [place] [address]-12-08 16:09:00 Test Item Value Reference Range Interpretation Comments BUN (test code = BUN) 26 7-22 [place] 815532-12-08 16:09:00 Test Item Value Reference Range Interpretation Comments Creatinine Lvl (test code = Creatinine 5.82 0.50-1.40 Lvl) [place] 815532-12-08 16:09:00 Test Item Value Reference Range Interpretation Comments Sodium Lvl (test code = Sodium Lvl) 135 135-145 [place] 815532-12-08 16:09:00 Test Item Value Reference Range Interpretation Comments Potassium Lvl (test code = Potassium 3.0 3.5-5.1 Lvl) [facility] HospitalXdakmglLBDBLSUCX5415-65-95 16:09:00 Test Item Value Reference Range Interpretation Comments Chloride Lvl (test code = Chloride Lvl) 100 95-109 [facility] HospitalHefftxaMODYREMEF7349-59-65 16:09:00 Test Item Value Reference Range Interpretation Comments CO2 (test code = CO2) 26 24-32 [facility] HospitalOswjaoeQTXWQMFHW2776-56-57 16:09:00 Test Item Value Reference Range Interpretation Comments AGAP (test code = AGAP) 12.0 10.0-20.0 [facility] HospitalLjkiyvcFJUKFWKWM7247-48-80 16:09:00 Test Item Value Reference Range Interpretation Comments Calcium Lvl (test code = Calcium Lvl) 8.1 8.5-10.5 [facility] HospitalNtvtbpbAPZNXPBAX7649-72-35 16:09:00 Test Item Value Reference Range Interpretation Comments B/C Ratio (test code = B/C Ratio) 4 1 6-25 [facility] HospitalUxyjgnmURANODNET1780-10-70 16:09:00 Test Item Value Reference Range Interpretation Comments Total Protein (test code = Total 6.3 6.4-8.4 Protein) [facility] HospitalKgjjtdiECYSFQJVR0355-46-13 16:09:00 Test Item Value Reference Range Interpretation Comments Albumin Lvl (test code = Albumin Lvl) 2.3 3.5-5.0 [facility] HospitalAalzynyUPFYWNJPO6658-96-69 16:09:00 Test Item Value Reference Range Interpretation Comments Globulin (test code = Globulin) 4.0 2.7-4.2 [facility] HospitalGhbosguGENSUBXHG0459-09-94 16:09:00 Test Item Value Reference Range Interpretation Comments A/G Ratio (test code = A/G Ratio) 0.6 1 0.7-1.6 [facility] HospitalYnfwyceTIHPJARIS8713-49-15 16:09:00 Test Item Value Reference Range Interpretation Comments ALT (test code = ALT) no gt See_Comment [Auto mated message] The system which ge nerated this result transmit sally reference range : <=65. The reference range was not used to interpr et this result as henrry l/abnormal. [facility] HospitalUvrldrdAMKWJAULY2296-27-50 16:09:00 Test Item Value Reference Range Interpretation Comments AST (test code = AST) 11 See_Comment [Auto mated message] The system which ge nerated this result transmit sally reference range : <=37. The reference range was not used to interpr et this result as henrry l/abnormal. [facility] HospitalNsbdnrwIOWQGNISA5583-39-42 16:09:00 Test Item Value Reference Range Interpretation Comments Alk Phos (test code = Alk Phos) 92 39-136 [facility] HospitalEagvkoeFNJGAKECG8406-25-52 16:09:00 Test Item Value Reference Range Interpretation Comments Bili Total (test code = Bili Total) 0.5 0.2-1.3 [facility] HospitalHokrescQOFRRTFHT6278-71-46 16:09:00 Test Item Value Reference Range Interpretation Comments eGFR (test code = eGFR) 8 [facility] HospitalWbrvarpSYQVYZKRL5857-36-83 16:09:00 Test Item Value Reference Range Interpretation Comments Magnesium Lvl (test code = Magnesium 2.5 1.8-2.4 Lvl) [facility] HospitalPldauklCNSTWJQOYZ0182-14-40 16:09:00 Test Item Value Reference Range Interpretation Comments Segs (test code = Segs) 50.9 45.0-75.0 [facility] HospitalBidxesbWCMIWGMYZC8975-05-13 16:09:00 Test Item Value Reference Range Interpretation Comments Lymphocytes (test code = Lymphocytes) 39.1 20.0-40.0 [facility] HospitalGzlblqbDOZRPESSVV1032-79-95 16:09:00 Test Item Value Reference Range Interpretation Comments Monocytes (test code = Monocytes) 6.6 2.0-12.0 [facility] HospitalPucruceASKKRRRIOE2944-06-42 16:09:00 Test Item Value Reference Range Interpretation Comments Eosinophils (test code = 2.2 See_Comment [A utomated message] The Eosinophils) system which ge nerated this result tra nsmitted reference range : <=4.0. The reference r calli was not used to int erpret this result as normal/abnormal . [facility] HospitalQxkpvjqPLZTTWOKVL6403-74-43 16:09:00 Test Item Value Reference Range Interpretation Comments Basophils (test code = 1.2 See_Comment [Aut omated message] The Basophils) system which ge nerated this result tra nsmitted reference range : <=1.0. The reference r calli was not used to int erpret this result as normal/abnormal . [place] 111102-12-08 16:09:00 Test Item Value Reference Range Interpretation Comments Neutrophils # (test code = Neutrophils 2.1 1.5-8.1 #) [facility] HospitalFpflytpDSXWHYSICB7040-27-12 16:09:00 Test Item Value Reference Range Interpretation Comments Lymphocytes # (test code = Lymphocytes 1.6 1.0-5.5 #) [place] 111102-12-08 16:09:00 Test Item Value Reference Range Interpretation Comments Monocytes # (test code 0.3 See_Comment [Aut omated message] The = Monocytes #) system which generated this result tra nsmitted reference range : <=0.8. The reference r calli was not used to int erpret this result as normal/abnormal . [place] 111102-12-08 16:09:00 Test Item Value Reference Range Interpretation Comments Eosinophils # (test code 0.1 See_Comment [A utomated message] The = Eosinophils #) system whic h generated this result tra nsmitted reference range : <=0.5. The reference r calli was not used to int erpret this result as normal/abnormal . [facility] HospitalOxtrdbmEZEEMKJDYH0312-29-61 16:09:00 Test Item Value Reference Range Interpretation Comments Basophils # (test code 0.1 See_Comment [Aut omated message] The = Basophils #) system which generated this result tra nsmitted reference range : <=0.2. The reference r calli was not used to int erpret this result as normal/abnormal . [facility] HospitalVopcoxwAGFOJUWAAB9119-77-62 16:09:00 Test Item Value Reference Range Interpretation Comments WBC (test code = WBC) 4.1 3.7-10.4 [place] 111102-12-08 16:09:00 Test Item Value Reference Range Interpretation Comments RBC (test code = RBC) 2.88 4.20-5.40 [place] 111102-12-08 16:09:00 Test Item Value Reference Range Interpretation Comments Hgb (test code = Hgb) 9.8 12.0-16.0 [place] 111102-12-08 16:09:00 Test Item Value Reference Range Interpretation Comments Hct (test code = Hct) 29.7 36.0-48.0 [place] 111102-12-08 16:09:00 Test Item Value Reference Range Interpretation Comments MCV (test code = MCV) 103.4 80.0-98.0 [place] 111102-12-08 16:09:00 Test Item Value Reference Range Interpretation Comments MCH (test code = MCH) 34.0 pg 27.0-31.0 [place] 111102-12-08 16:09:00 Test Item Value Reference Range Interpretation Comments MCHC (test code = MCHC) 32.9 32.0-36.0 [place] 111102-12-08 16:09:00 Test Item Value Reference Range Interpretation Comments RDW (test code = RDW) 17.5 11.5-14.5 [facility] HospitalCcdoriiGHGILABEWA4215-97-81 16:09:00 Test Item Value Reference Range Interpretation Comments Platelet (test code = Platelet) 253 133-450 [facility] HospitalIzkqfhbAEBUXNWYDD1720-22-16 16:09:00 Test Item Value Reference Range Interpretation Comments MPV (test code = MPV) 7.8 7.4-10.4 [place] 111102-12-08 16:09:00 Test Item Value Reference Range Interpretation Comments Segs (test code = Segs) 50.9 45.0-75.0 [place] 111102-12-08 16:09:00 Test Item Value Reference Range Interpretation Comments Lymphocytes (test code = Lymphocytes) 39.1 20.0-40.0 [place] 111102-12-08 16:09:00 Test Item Value Reference Range Interpretation Comments Monocytes (test code = Monocytes) 6.6 2.0-12.0 [place] [address]-12-08 16:09:00 Test Item Value Reference Range Interpretation Comments Eosinophils (test code = 2.2 See_Comment [A utomated message] The Eosinophils) system which ge nerated this result tra nsmitted reference range : <=4.0. The reference r calli was not used to int erpret this result as normal/abnormal . [place] 111102-12-08 16:09:00 Test Item Value Reference Range Interpretation Comments Basophils (test code = 1.2 See_Comment [Aut omated message] The Basophils) system which ge nerated this result tra nsmitted reference range : <=1.0. The reference r calli was not used to int erpret this result as normal/abnormal . [place] [address]-12-08 16:09:00 Test Item Value Reference Range Interpretation Comments Neutrophils # (test code = Neutrophils 2.1 1.5-8.1 #) [place] 111102-12-08 16:09:00 Test Item Value Reference Range Interpretation Comments Lymphocytes # (test code = Lymphocytes 1.6 1.0-5.5 #) [place] 111102-12-08 16:09:00 Test Item Value Reference Range Interpretation Comments Monocytes # (test code 0.3 See_Comment [Aut omated message] The = Monocytes #) system which generated this result tra nsmitted reference range : <=0.8. The reference r calli was not used to int erpret this result as normal/abnormal . [place] [address]-12-08 16:09:00 Test Item Value Reference Range Interpretation Comments Eosinophils # (test code 0.1 See_Comment [A utomated message] The = Eosinophils #) system whic h generated this result tra nsmitted reference range : <=0.5. The reference r calil was not used to int erpret this result as normal/abnormal . [place] 111102-12-08 16:09:00 Test Item Value Reference Range Interpretation Comments Basophils # (test code 0.1 See_Comment [Aut omated message] The = Basophils #) system which generated this result tra nsmitted reference range : <=0.2. The reference r calli was not used to int erpret this result as normal/abnormal . [place] 111102-12-08 16:09:00 Test Item Value Reference Range Interpretation Comments WBC (test code = WBC) 4.1 3.7-10.4 [place] [address]-12-08 16:09:00 Test Item Value Reference Range Interpretation Comments RBC (test code = RBC) 2.88 4.20-5.40 [place] [address]-12-08 16:09:00 Test Item Value Reference Range Interpretation Comments Hgb (test code = Hgb) 9.8 12.0-16.0 [place] [address]-12-08 16:09:00 Test Item Value Reference Range Interpretation Comments Hct (test code = Hct) 29.7 36.0-48.0 [place] [address]-12-08 16:09:00 Test Item Value Reference Range Interpretation Comments MCV (test code = MCV) 103.4 80.0-98.0 [place] 111102-12-08 16:09:00 Test Item Value Reference Range Interpretation Comments MCH (test code = MCH) 34.0 pg 27.0-31.0 [place] 111102-12-08 16:09:00 Test Item Value Reference Range Interpretation Comments MCHC (test code = MCHC) 32.9 32.0-36.0 [place] [address]-12-08 16:09:00 Test Item Value Reference Range Interpretation Comments RDW (test code = RDW) 17.5 11.5-14.5 [place] [address]-12-08 16:09:00 Test Item Value Reference Range Interpretation Comments Platelet (test code = Platelet) 253 133-450 [place] 111102-12-08 16:09:00 Test Item Value Reference Range Interpretation Comments MPV (test code = MPV) 7.8 7.4-10.4 [place] 196222-12-08 16:09:00 Test Item Value Reference Range Interpretation Comments Glucose Lvl (test code = Glucose Lvl) 140 70-99 [place] 196222-12-08 16:09:00 Test Item Value Reference Range Interpretation Comments BUN (test code = BUN) 26 7-22 [place] 196222-12-08 16:09:00 Test Item Value Reference Range Interpretation Comments Creatinine Lvl (test code = Creatinine 5.82 0.50-1.40 Lvl) [place] 196222-12-08 16:09:00 Test Item Value Reference Range Interpretation Comments Sodium Lvl (test code = Sodium Lvl) 135 135-145 [place] 196222-12-08 16:09:00 Test Item Value Reference Range Interpretation Comments Potassium Lvl (test code = Potassium 3.0 3.5-5.1 Lvl) [place] 196222-12-08 16:09:00 Test Item Value Reference Range Interpretation Comments Chloride Lvl (test code = Chloride Lvl) 100 95-109 [place] 196222-12-08 16:09:00 Test Item Value Reference Range Interpretation Comments CO2 (test code = CO2) 26 24-32 [place] 196222-12-08 16:09:00 Test Item Value Reference Range Interpretation Comments AGAP (test code = AGAP) 12.0 10.0-20.0 [place] 196222-12-08 16:09:00 Test Item Value Reference Range Interpretation Comments Calcium Lvl (test code = Calcium Lvl) 8.1 8.5-10.5 [place] 196222-12-08 16:09:00 Test Item Value Reference Range Interpretation Comments B/C Ratio (test code = B/C Ratio) 4 1 6-25 [place] 196222-12-08 16:09:00 Test Item Value Reference Range Interpretation Comments Total Protein (test code = Total 6.3 6.4-8.4 Protein) [place] 196222-12-08 16:09:00 Test Item Value Reference Range Interpretation Comments Albumin Lvl (test code = Albumin Lvl) 2.3 3.5-5.0 [place] 196222-12-08 16:09:00 Test Item Value Reference Range Interpretation Comments Globulin (test code = Globulin) 4.0 2.7-4.2 [place] 196222-12-08 16:09:00 Test Item Value Reference Range Interpretation Comments A/G Ratio (test code = A/G Ratio) 0.6 1 0.7-1.6 [place] 196222-12-08 16:09:00 Test Item Value Reference Range Interpretation Comments ALT (test code = ALT) no gt See_Comment [Auto mated message] The system which ge nerated this result transmit sally reference range : <=65. The reference range was not used to interpr et this result as henrry l/abnormal. [facility] [id number] 16:09:00 Test Item Value Reference Range Interpretation Comments AST (test code = AST) 11 See_Comment [Auto mated message] The system which ge nerated this result transmit sally reference range : <=37. The reference range was not used to interpr et this result as henrry l/abnormal. [facility] [id number] 16:09:00 Test Item Value Reference Range Interpretation Comments Alk Phos (test code = Alk Phos) 92 39-[address] [facility]2022-12-08 16:09:00 Test Item Value Reference Range Interpretation Comments Bili Total (test code = Bili Total) 0.5 0.2-1.[address] [facility]2022-12-08 16:09:00 Test Item Value Reference Range Interpretation Comments eGFR (test code = eGFR) [address] [facility]2022-12-08 16:09:00 Test Item Value Reference Range Interpretation Comments Magnesium Lvl (test code = Magnesium 2.5 1.8-2.4 Lvl) [facility]ots[facility]FCIOOSJB9136[facility]43[facility] 16:09:00 Test Item Value Reference Range Interpretation Comments Glucose Lvl (test code = Glucose Lvl) 140 70-99 [facility] HospitalAkcdaacKQFYYHBYP9176-52-04 16:09:00 Test Item Value Reference Range Interpretation Comments BUN (test code = BUN) 26 7-22 [facility] HospitalBknrtqaGGJLHIMFY2490-69-72 16:09:00 Test Item Value Reference Range Interpretation Comments Creatinine Lvl (test code = Creatinine 5.82 0.50-1.40 Lvl) [facility] HospitalXpfbivmXFOCNLCCT5924-53-46 16:09:00 Test Item Value Reference Range Interpretation Comments Sodium Lvl (test code = Sodium Lvl) 135 135-145 [facility] HospitalAaebkjbHIKRFVRXT5291-11-72 16:09:00 Test Item Value Reference Range Interpretation Comments Potassium Lvl (test code = Potassium 3.0 3.5-5.1 Lvl) [facility] HospitalUzcfiecGPGABHPDR6689-52-02 16:09:00 Test Item Value Reference Range Interpretation Comments Chloride Lvl (test code = Chloride Lvl) 100 95-109 [place] 815532-12-08 16:09:00 Test Item Value Reference Range Interpretation Comments CO2 (test code = CO2) 26 24-32 [facility] HospitalTejjfecQCUQGJKAB7757-29-39 16:09:00 Test Item Value Reference Range Interpretation Comments AGAP (test code = AGAP) 12.0 10.0-20.0 [place] 815532-12-08 16:09:00 Test Item Value Reference Range Interpretation Comments Calcium Lvl (test code = Calcium Lvl) 8.1 8.5-10.5 [place] 815532-12-08 16:09:00 Test Item Value Reference Range Interpretation Comments B/C Ratio (test code = B/C Ratio) 4 1 6-25 [facility] HospitalElcwtpuKBHAQQBID9733-38-24 16:09:00 Test Item Value Reference Range Interpretation Comments Total Protein (test code = Total 6.3 6.4-8.4 Protein) [facility] HospitalNcydhxfBOTTRYBRB9626-82-73 16:09:00 Test Item Value Reference Range Interpretation Comments Albumin Lvl (test code = Albumin Lvl) 2.3 3.5-5.0 [facility] HospitalAlgaimaQHIDOVGTZ7208-03-76 16:09:00 Test Item Value Reference Range Interpretation Comments Globulin (test code = Globulin) 4.0 2.7-4.2 [facility] HospitalJagkndtXWGRYQDDD3636-87-29 16:09:00 Test Item Value Reference Range Interpretation Comments A/G Ratio (test code = A/G Ratio) 0.6 1 0.7-1.6 [facility] HospitalQzaapkuXHALSHASI6947-51-59 16:09:00 Test Item Value Reference Range Interpretation Comments ALT (test code = ALT) no gt See_Comment [Auto mated message] The system which nerated this result transmit sally reference range : <=65. The reference range was not used to interpr et this result as henrry l/abnormal. [facility] HospitalZwtuzooEKENIXUVA8420-24-26 16:09:00 Test Item Value Reference Range Interpretation Comments AST (test code = AST) 11 See_Comment [Auto mated message] The system which ge nerated this result transmit sally reference range : <=37. The reference range was not used to interpr et this result as henrry l/abnormal. [facility] HospitalHgqmixxYMQAEUTJN8282-12-22 16:09:00 Test Item Value Reference Range Interpretation Comments Alk Phos (test code = Alk Phos) 92 39-136 [facility] HospitalRzekechSPOTKVVVM1450-62-11 16:09:00 Test Item Value Reference Range Interpretation Comments Bili Total (test code = Bili Total) 0.5 0.2-1.3 [facility] HospitalPjnmtemBORYLTBKV7997-79-75 16:09:00 Test Item Value Reference Range Interpretation Comments eGFR (test code = eGFR) 8 [facility] HospitalEyomxzgVAHYIHLQS4984-43-31 16:09:00 Test Item Value Reference Range Interpretation Comments Magnesium Lvl (test code = Magnesium 2.5 1.8-2.4 Lvl) [facility] HospitalHenonreUGUBKFSAUG9987-97-29 16:09:00 Test Item Value Reference Range Interpretation Comments Segs (test code = Segs) 50.9 45.0-75.0 [place] 111102-12-08 16:09:00 Test Item Value Reference Range Interpretation Comments Lymphocytes (test code = Lymphocytes) 39.1 20.0-40.0 [place] [address]-12-08 16:09:00 Test Item Value Reference Range Interpretation Comments Monocytes (test code = Monocytes) 6.6 2.0-12.0 [place] 196222-12-08 16:09:00 Test Item Value Reference Range Interpretation Comments Glucose Lvl (test code = Glucose Lvl) 140 70-99 [place] 196222-12-08 16:09:00 Test Item Value Reference Range Interpretation Comments BUN (test code = BUN) 26 7-22 [place] 196222-12-08 16:09:00 Test Item Value Reference Range Interpretation Comments Creatinine Lvl (test code = Creatinine 5.82 0.50-1.40 Lvl) [place] 196222-12-08 16:09:00 Test Item Value Reference Range Interpretation Comments Sodium Lvl (test code = Sodium Lvl) 135 135-[address] [facility]2022-12-08 16:09:00 Test Item Value Reference Range Interpretation Comments Potassium Lvl (test code = Potassium 3.0 3.5-5.1 Lvl) [place] 196222-12-08 16:09:00 Test Item Value Reference Range Interpretation Comments Chloride Lvl (test code = Chloride Lvl) 100 95-109 [place] 196222-12-08 16:09:00 Test Item Value Reference Range Interpretation Comments CO2 (test code = CO2) 26 24-32 [place] 196222-12-08 16:09:00 Test Item Value Reference Range Interpretation Comments AGAP (test code = AGAP) 12.0 10.0-20.0 [place] 196222-12-08 16:09:00 Test Item Value Reference Range Interpretation Comments Calcium Lvl (test code = Calcium Lvl) 8.1 8.5-10.5 [place] 196222-12-08 16:09:00 Test Item Value Reference Range Interpretation Comments B/C Ratio (test code = B/C Ratio) 4 1 6-25 [place] 196222-12-08 16:09:00 Test Item Value Reference Range Interpretation Comments Total Protein (test code = Total 6.3 6.4-8.4 Protein) [place] 196222-12-08 16:09:00 Test Item Value Reference Range Interpretation Comments Albumin Lvl (test code = Albumin Lvl) 2.3 3.5-5.0 [place] 196222-12-08 16:09:00 Test Item Value Reference Range Interpretation Comments Globulin (test code = Globulin) 4.0 2.7-4.2 [place] 196222-12-08 16:09:00 Test Item Value Reference Range Interpretation Comments A/G Ratio (test code = A/G Ratio) 0.6 1 0.7-1.6 [place] 196222-12-08 16:09:00 Test Item Value Reference Range Interpretation Comments ALT (test code = ALT) no gt See_Comment [Auto mated message] The system which ge nerated this result transmit sally reference range : <=65. The reference range was not used to interpr et this result as henrry l/abnormal. [facility]2022-12-08 16:09:00 Test Item Value Reference Range Interpretation Comments AST (test code = AST) 11 See_Comment [Auto mated message] The system which ge nerated this result transmit sally reference range : <=37. The reference range was not used to interpr et this result as henrry l/abnormal. [place] 196222-12-08 16:09:00 Test Item Value Reference Range Interpretation Comments Alk Phos (test code = Alk Phos) 92 39-136 [place] 196222-12-08 16:09:00 Test Item Value Reference Range Interpretation Comments Bili Total (test code = Bili Total) 0.5 0.2-1.3 [place] 196222-12-08 16:09:00 Test Item Value Reference Range Interpretation Comments eGFR (test code = eGFR) 8 [place] 196222-12-08 16:09:00 Test Item Value Reference Range Interpretation Comments Magnesium Lvl (test code = Magnesium 2.5 1.8-2.4 Lvl) [facility] HospitalDsckvajFTEGUUCTX5507-19-44 16:09:00 Test Item Value Reference Range Interpretation Comments Glucose Lvl (test code = Glucose Lvl) 140 70-99 [place] 815532-12-08 16:09:00 Test Item Value Reference Range Interpretation Comments BUN (test code = BUN) 26 7-22 [facility] HospitalKslclatFAOJAQJHW3192-73-31 16:09:00 Test Item Value Reference Range Interpretation Comments Creatinine Lvl (test code = Creatinine 5.82 0.50-1.40 Lvl) [facility] HospitalRxzbvyyEVNGFJZKU9491-16-76 16:09:00 Test Item Value Reference Range Interpretation Comments Sodium Lvl (test code = Sodium Lvl) 135 135-145 [facility] HospitalPtimklxNVVBNNVUW1895-16-81 16:09:00 Test Item Value Reference Range Interpretation Comments Potassium Lvl (test code = Potassium 3.0 3.5-5.1 Lvl) [facility] HospitalAbqtnwgOHCAGONOV1397-46-07 16:09:00 Test Item Value Reference Range Interpretation Comments Chloride Lvl (test code = Chloride Lvl) 100 95-109 [facility] HospitalQrpcuuiTFWBGEQFI3888-12-13 16:09:00 Test Item Value Reference Range Interpretation Comments CO2 (test code = CO2) 26 24-32 [facility] HospitalZlyjgcxYNKSDFJQN5901-42-78 16:09:00 Test Item Value Reference Range Interpretation Comments AGAP (test code = AGAP) 12.0 10.0-20.0 [facility] HospitalXvejzntXWNQNYPXI8406-05-75 16:09:00 Test Item Value Reference Range Interpretation Comments Calcium Lvl (test code = Calcium Lvl) 8.1 8.5-10.5 [facility] HospitalDovejygXYHNQNQHT9914-25-78 16:09:00 Test Item Value Reference Range Interpretation Comments B/C Ratio (test code = B/C Ratio) 4 1 6-25 [place] 815532-12-08 16:09:00 Test Item Value Reference Range Interpretation Comments Total Protein (test code = Total 6.3 6.4-8.4 Protein) [facility] HospitalMjljfbbHAMAZNSSN6496-46-43 16:09:00 Test Item Value Reference Range Interpretation Comments Albumin Lvl (test code = Albumin Lvl) 2.3 3.5-5.0 [place] 815532-12-08 16:09:00 Test Item Value Reference Range Interpretation Comments Globulin (test code = Globulin) 4.0 2.7-4.2 [facility]QhkbqmwCVWTACQNR9770-03-11 16:09:00 Test Item Value Reference Range Interpretation Comments A/G Ratio (test code = A/G Ratio) 0.6 1 0.7-1.6 [facility] LakeCzkijrrFIXUFCWVT2218-92-56 16:09:00 Test Item Value Reference Range Interpretation Comments ALT (test code = ALT) no gt See_Comment [Auto mated message] The system which ge nerated this result transmit sally reference range : <=65. The reference range was not used to interpr et this result as henrry l/abnormal. [facility] LakeDfxodgkCZPODMYVM5072-48-24 16:09:00 Test Item Value Reference Range Interpretation Comments AST (test code = AST) 11 See_Comment [Auto mated message] The system which ge nerated this result transmit sally reference range : <=37. The reference range was not used to interpr et this result as henrry l/abnormal. [facility] IebwnbqGGBPQHYVU6545-68-50 16:09:00 Test Item Value Reference Range Interpretation Comments Alk Phos (test code = Alk Phos) 92 39-136 [facility] LakeYyrcvihPPHYJVIRZ4609-95-92 16:09:00 Test Item Value Reference Range Interpretation Comments Bili Total (test code = Bili Total) 0.5 0.2-1.3 [facility] LakeOddbdakFHXVXOMFT7840-69-66 16:09:00 Test Item Value Reference Range Interpretation Comments eGFR (test code = eGFR) 8 [facility] LakeBqlcgqeTBHHDFUCP7822-37-38 16:09:00 Test Item Value Reference Range Interpretation Comments Magnesium Lvl (test code = Magnesium 2.5 1.8-2.4 Lvl) [facility] LakePaedtepMHMOGCKTIS3942-68-89 16:09:00 Test Item Value Reference Range Interpretation Comments Segs (test code = Segs) 50.9 45.0-75.0 [facility] LakeUywxrhqKKIOQSHTGK5019-26-67 16:09:00 Test Item Value Reference Range Interpretation Comments Lymphocytes (test code = Lymphocytes) 39.1 20.0-40.0 [facility] LakeDorvnktTDZQJHOKPM6584-33-26 16:09:00 Test Item Value Reference Range Interpretation Comments Monocytes (test code = Monocytes) 6.6 2.0-12.0 [facility] HospitalMhwxvppOHZZACQNXJ2893-40-34 16:09:00 Test Item Value Reference Range Interpretation Comments Eosinophils (test code = 2.2 See_Comment [A utomated message] The Eosinophils) system which ge nerated this result tra nsmitted reference range : <=4.0. The reference r calli was not used to int erpret this result as normal/abnormal . [facility] HospitalAiqpugyYUFBSVZDVG9719-85-61 16:09:00 Test Item Value Reference Range Interpretation Comments Basophils (test code = 1.2 See_Comment [Aut omated message] The Basophils) system which ge nerated this result tra nsmitted reference range : <=1.0. The reference r calli was not used to int erpret this result as normal/abnormal . [facility] HospitalSdedltkIXSENZDEEV3819-23-36 16:09:00 Test Item Value Reference Range Interpretation Comments Neutrophils # (test code = Neutrophils 2.1 1.5-8.1 #) [facility] HospitalAsokbbmHHPIOMZEEF0252-27-62 16:09:00 Test Item Value Reference Range Interpretation Comments Lymphocytes # (test code = Lymphocytes 1.6 1.0-5.5 #) [facility] HospitalVclnmvwBPMREJZCWQ6698-51-56 16:09:00 Test Item Value Reference Range Interpretation Comments Monocytes # (test code 0.3 See_Comment [Aut omated message] The = Monocytes #) system which generated this result tra nsmitted reference range : <=0.8. The reference r calli was not used to int erpret this result as normal/abnormal . [facility] HospitalPgbvbzsSBPDVKABPV2962-82-31 16:09:00 Test Item Value Reference Range Interpretation Comments Eosinophils # (test code 0.1 See_Comment [A utomated message] The = Eosinophils #) system whic h generated this result tra nsmitted reference range : <=0.5. The reference r calli was not used to int erpret this result as normal/abnormal . [facility] HospitalDtjojqpIUOPCHBYJG2743-61-88 16:09:00 Test Item Value Reference Range Interpretation Comments Basophils # (test code 0.1 See_Comment [Aut omated message] The = Basophils #) system which generated this result tra nsmitted reference range : <=0.2. The reference r calli was not used to int erpret this result as normal/abnormal . [place] 111102-12-08 16:09:00 Test Item Value Reference Range Interpretation Comments WBC (test code = WBC) 4.1 3.7-10.4 [place] 111102-12-08 16:09:00 Test Item Value Reference Range Interpretation Comments RBC (test code = RBC) 2.88 4.20-5.40 [place] 111102-12-08 16:09:00 Test Item Value Reference Range Interpretation Comments Hgb (test code = Hgb) 9.8 12.0-16.0 [place] [address]-12-08 16:09:00 Test Item Value Reference Range Interpretation Comments Hct (test code = Hct) 29.7 36.0-48.0 [place] [address]-12-08 16:09:00 Test Item Value Reference Range Interpretation Comments MCV (test code = MCV) 103.4 80.0-98.0 [place] [address]-12-08 16:09:00 Test Item Value Reference Range Interpretation Comments MCH (test code = MCH) 34.0 pg 27.0-31.0 [place] 111102-12-08 16:09:00 Test Item Value Reference Range Interpretation Comments MCHC (test code = MCHC) 32.9 32.0-36.0 [place] 111102-12-08 16:09:00 Test Item Value Reference Range Interpretation Comments RDW (test code = RDW) 17.5 11.5-14.5 [place] 111102-12-08 16:09:00 Test Item Value Reference Range Interpretation Comments Platelet (test code = Platelet) 253 133-450 [facility] HospitalCjtonkqVYHFKZGMLM8599-70-64 16:09:00 Test Item Value Reference Range Interpretation Comments MPV (test code = MPV) 7.8 7.4-10.4 [place] [address]-12-08 16:09:00 Test Item Value Reference Range Interpretation Comments Segs (test code = Segs) 50.9 45.0-75.0 [place] [address]-12-08 16:09:00 Test Item Value Reference Range Interpretation Comments Lymphocytes (test code = Lymphocytes) 39.1 20.0-40.0 [place] 111102-12-08 16:09:00 Test Item Value Reference Range Interpretation Comments Monocytes (test code = Monocytes) 6.6 2.0-12.0 [place] 111102-12-08 16:09:00 Test Item Value Reference Range Interpretation Comments Eosinophils (test code = 2.2 See_Comment [A utomated message] The Eosinophils) system which ge nerated this result tra nsmitted reference range : <=4.0. The reference r calli was not used to int erpret this result as normal/abnormal . [place] 111102-12-08 16:09:00 Test Item Value Reference Range Interpretation Comments Basophils (test code = 1.2 See_Comment [Aut omated message] The Basophils) system which ge nerated this result tra nsmitted reference range : <=1.0. The reference r calli was not used to int erpret this result as normal/abnormal . [place] 111102-12-08 16:09:00 Test Item Value Reference Range Interpretation Comments Neutrophils # (test code = Neutrophils 2.1 1.5-8.1 #) [place] 111102-12-08 16:09:00 Test Item Value Reference Range Interpretation Comments Lymphocytes # (test code = Lymphocytes 1.6 1.0-5.5 #) [place] 111102-12-08 16:09:00 Test Item Value Reference Range Interpretation Comments Monocytes # (test code 0.3 See_Comment [Aut omated message] The = Monocytes #) system which generated this result tra nsmitted reference range : <=0.8. The reference r calli was not used to int erpret this result as normal/abnormal . [place] 111102-12-08 16:09:00 Test Item Value Reference Range Interpretation Comments Eosinophils # (test code 0.1 See_Comment [A utomated message] The = Eosinophils #) system whic h generated this result tra nsmitted reference range : <=0.5. The reference r calli was not used to int erpret this result as normal/abnormal . [place] 111102-12-08 16:09:00 Test Item Value Reference Range Interpretation Comments Basophils # (test code 0.1 See_Comment [Aut omated message] The = Basophils #) system which generated this result tra nsmitted reference range : <=0.2. The reference r calli was not used to int erpret this result as normal/abnormal . [place] [address]-12-08 16:09:00 Test Item Value Reference Range Interpretation Comments WBC (test code = WBC) 4.1 3.7-10.4 [place] 111102-12-08 16:09:00 Test Item Value Reference Range Interpretation Comments RBC (test code = RBC) 2.88 4.20-5.40 [place] [address]-12-08 16:09:00 Test Item Value Reference Range Interpretation Comments Hgb (test code = Hgb) 9.8 12.0-16.0 [place] [address]-12-08 16:09:00 Test Item Value Reference Range Interpretation Comments Hct (test code = Hct) 29.7 36.0-48.0 [place] 111102-12-08 16:09:00 Test Item Value Reference Range Interpretation Comments MCV (test code = MCV) 103.4 80.0-98.0 [place] [address]-12-08 16:09:00 Test Item Value Reference Range Interpretation Comments MCH (test code = MCH) 34.0 pg 27.0-31.0 [place] [address]-12-08 16:09:00 Test Item Value Reference Range Interpretation Comments MCHC (test code = MCHC) 32.9 32.0-36.0 [place] 111102-12-08 16:09:00 Test Item Value Reference Range Interpretation Comments RDW (test code = RDW) 17.5 11.5-14.5 [place] 111102-12-08 16:09:00 Test Item Value Reference Range Interpretation Comments Platelet (test code = Platelet) 253 133-450 [place] 111102-12-08 16:09:00 Test Item Value Reference Range Interpretation Comments MPV (test code = MPV) 7.8 7.4-10.4 [place] 196222-12-08 16:09:00 Test Item Value Reference Range Interpretation Comments Glucose Lvl (test code = Glucose Lvl) 140 70-99 [place] 196222-12-08 16:09:00 Test Item Value Reference Range Interpretation Comments BUN (test code = BUN) 26 7-22 [place] [address]-12-08 16:09:00 Test Item Value Reference Range Interpretation Comments Creatinine Lvl (test code = Creatinine 5.82 0.50-1.40 Lvl) [place] 196222-12-08 16:09:00 Test Item Value Reference Range Interpretation Comments Sodium Lvl (test code = Sodium Lvl) 135 135-145 [place] 196222-12-08 16:09:00 Test Item Value Reference Range Interpretation Comments Potassium Lvl (test code = Potassium 3.0 3.5-5.1 Lvl) [facility]2022-12-08 16:09:00 Test Item Value Reference Range Interpretation Comments Chloride Lvl (test code = Chloride Lvl) 100 95-109 [place] 196222-12-08 16:09:00 Test Item Value Reference Range Interpretation Comments CO2 (test code = CO2) 26 24-32 [place] 196222-12-08 16:09:00 Test Item Value Reference Range Interpretation Comments AGAP (test code = AGAP) 12.0 10.0-20.0 [place] 196222-12-08 16:09:00 Test Item Value Reference Range Interpretation Comments Calcium Lvl (test code = Calcium Lvl) 8.1 8.5-10.5 [place] 196222-12-08 16:09:00 Test Item Value Reference Range Interpretation Comments B/C Ratio (test code = B/C Ratio) 4 1 6-25 [place] 196222-12-08 16:09:00 Test Item Value Reference Range Interpretation Comments Total Protein (test code = Total 6.3 6.4-8.4 Protein) [place] 196222-12-08 16:09:00 Test Item Value Reference Range Interpretation Comments Albumin Lvl (test code = Albumin Lvl) 2.3 3.5-5.0 [place] 196222-12-08 16:09:00 Test Item Value Reference Range Interpretation Comments Globulin (test code = Globulin) 4.0 2.7-4.2 [place] 196222-12-08 16:09:00 Test Item Value Reference Range Interpretation Comments A/G Ratio (test code = A/G Ratio) 0.6 1 0.7-1.6 [place] 196222-12-08 16:09:00 Test Item Value Reference Range Interpretation Comments ALT (test code = ALT) no gt See_Comment [Auto mated message] The system which ge nerated this result transmit sally reference range : <=65. The reference range was not used to interpr et this result as henrry l/abnormal. [facility] [employer] [id number] 16:09:00 Test Item Value Reference Range Interpretation Comments AST (test code = AST) 11 See_Comment [Auto mated message] The system which ge nerated this result transmit sally reference range : <=37. The reference range was not used to interpr et this result as henrry l/abnormal. [facility] [employer] [id number] 16:09:00 Test Item Value Reference Range Interpretation Comments Alk Phos (test code = Alk Phos) 92 39-136 [facility] [id number] 16:09:00 Test Item Value Reference Range Interpretation Comments Bili Total (test code = Bili Total) 0.5 0.2-1.3 [facility] [employer] [id number] 16:09:00 Test Item Value Reference Range Interpretation Comments eGFR (test code = eGFR) 8 [facility] [employer] [id number] 16:09:00 Test Item Value Reference Range Interpretation Comments Magnesium Lvl (test code = Magnesium 2.5 1.8-2.4 Lvl) [facility] LakeYwidrkcKYNCJZNLP8288-43-09 16:09:00 Test Item Value Reference Range Interpretation Comments Glucose Lvl (test code = Glucose Lvl) 140 70-99 [facility] LakeFpxtbnwRCDXYFTBF8044-29-05 16:09:00 Test Item Value Reference Range Interpretation Comments BUN (test code = BUN) 26 7-22 [facility] LakeLhueiunVGKLEIYCL7865-92-60 16:09:00 Test Item Value Reference Range Interpretation Comments Creatinine Lvl (test code = Creatinine 5.82 0.50-1.40 Lvl) [facility] LakeImpdgrjJDGZQNZER9406-52-61 16:09:00 Test Item Value Reference Range Interpretation Comments Sodium Lvl (test code = Sodium Lvl) 135 135-145 [facility] LakeIzuvyorUWIFMOXGS4660-15-39 16:09:00 Test Item Value Reference Range Interpretation Comments Potassium Lvl (test code = Potassium 3.0 3.5-5.1 Lvl) [facility] 16:09:00 Test Item Value Reference Range Interpretation Comments Chloride Lvl (test code = Chloride Lvl) 100 95-109 [place] 815532-12-08 16:09:00 Test Item Value Reference Range Interpretation Comments CO2 (test code = CO2) 26 24-32 [place] [address]-12-08 16:09:00 Test Item Value Reference Range Interpretation Comments AGAP (test code = AGAP) 12.0 10.0-20.0 [place] 815532-12-08 16:09:00 Test Item Value Reference Range Interpretation Comments Calcium Lvl (test code = Calcium Lvl) 8.1 8.5-10.5 [facility]YjqgoyaAOCCUFNHX7987-37-64 16:09:00 Test Item Value Reference Range Interpretation Comments B/C Ratio (test code = B/C Ratio) 4 1 6-25 [place] [address]-12-08 16:09:00 Test Item Value Reference Range Interpretation Comments Total Protein (test code = Total 6.3 6.4-8.4 Protein) [facility]agzgkqRRVIDREQF8858-10-62 16:09:00 Test Item Value Reference Range Interpretation Comments Albumin Lvl (test code = Albumin Lvl) 2.3 3.5-5.0 [facility]TgtbwjoKFAVDTFZD4010-04-86 16:09:00 Test Item Value Reference Range Interpretation Comments Globulin (test code = Globulin) 4.0 2.7-4.2 [place] [address]-12-08 16:09:00 Test Item Value Reference Range Interpretation Comments A/G Ratio (test code = A/G Ratio) 0.6 1 0.7-1.6 [place] [address]-12-08 16:09:00 Test Item Value Reference Range Interpretation Comments ALT (test code = ALT) no gt See_Comment [Auto mated message] The system which ge nerated this result transmit sally reference range : <=65. The reference range was not used to interpr et this result as henrry l/abnormal. [place] [address]-12-08 16:09:00 Test Item Value Reference Range Interpretation Comments AST (test code = AST) 11 See_Comment [Auto mated message] The system which ge nerated this result transmit sally reference range : <=37. The reference range was not used to interpr et this result as henrry l/abnormal. [place] [address]-12-08 16:09:00 Test Item Value Reference Range Interpretation Comments Alk Phos (test code = Alk Phos) 92 39-136 [place] 815532-12-08 16:09:00 Test Item Value Reference Range Interpretation Comments Bili Total (test code = Bili Total) 0.5 0.2-1.3 [place] [address]-12-08 16:09:00 Test Item Value Reference Range Interpretation Comments eGFR (test code = eGFR) 8 [place] [address]-12-08 16:09:00 Test Item Value Reference Range Interpretation Comments Magnesium Lvl (test code = Magnesium 2.5 1.8-2.4 Lvl) [place] [address]-12-08 16:09:00 Test Item Value Reference Range Interpretation Comments Segs (test code = Segs) 50.9 45.0-75.0 [place] [address]-12-08 16:09:00 Test Item Value Reference Range Interpretation Comments Lymphocytes (test code = Lymphocytes) 39.1 20.0-40.0 [place] [address]-12-08 16:09:00 Test Item Value Reference Range Interpretation Comments Monocytes (test code = Monocytes) 6.6 2.0-12.0 [place] 111102-12-08 16:09:00 Test Item Value Reference Range Interpretation Comments Eosinophils (test code = 2.2 See_Comment [A utomated message] The Eosinophils) system which ge nerated this result tra nsmitted reference range : <=4.0. The reference r calli was not used to int erpret this result as normal/abnormal . [place] [address]-12-08 16:09:00 Test Item Value Reference Range Interpretation Comments Basophils (test code = 1.2 See_Comment [Aut omated message] The Basophils) system which ge nerated this result tra nsmitted reference range : <=1.0. The reference r calli was not used to int erpret this result as normal/abnormal . [place] 111102-12-08 16:09:00 Test Item Value Reference Range Interpretation Comments Neutrophils # (test code = Neutrophils 2.1 1.5-8.1 #) [place] [address]-12-08 16:09:00 Test Item Value Reference Range Interpretation Comments Lymphocytes # (test code = Lymphocytes 1.6 1.0-5.5 #) [place] 111102-12-08 16:09:00 Test Item Value Reference Range Interpretation Comments Monocytes # (test code 0.3 See_Comment [Aut omated message] The = Monocytes #) system which generated this result tra nsmitted reference range : <=0.8. The reference r calli was not used to int erpret this result as normal/abnormal . [place] 111102-12-08 16:09:00 Test Item Value Reference Range Interpretation Comments Eosinophils # (test code 0.1 See_Comment [A utomated message] The = Eosinophils #) system whic h generated this result tra nsmitted reference range : <=0.5. The reference r calli was not used to int erpret this result as normal/abnormal . [place] 111102-12-08 16:09:00 Test Item Value Reference Range Interpretation Comments Basophils # (test code 0.1 See_Comment [Aut omated message] The = Basophils #) system which generated this result tra nsmitted reference range : <=0.2. The reference r calli was not used to int erpret this result as normal/abnormal . [facility]FsxynlsYCWKLQSYMH9788-81-50 16:09:00 Test Item Value Reference Range Interpretation Comments WBC (test code = WBC) 4.1 3.7-10.4 [place] 111102-12-08 16:09:00 Test Item Value Reference Range Interpretation Comments RBC (test code = RBC) 2.88 4.20-5.40 [place] [address]-12-08 16:09:00 Test Item Value Reference Range Interpretation Comments Hgb (test code = Hgb) 9.8 12.0-16.0 [place] [address]-12-08 16:09:00 Test Item Value Reference Range Interpretation Comments Hct (test code = Hct) 29.7 36.0-48.0 [place] [address]-12-08 16:09:00 Test Item Value Reference Range Interpretation Comments MCV (test code = MCV) 103.4 80.0-98.0 [place] [address]-12-08 16:09:00 Test Item Value Reference Range Interpretation Comments MCH (test code = MCH) 34.0 pg 27.0-31.0 [place] 111102-12-08 16:09:00 Test Item Value Reference Range Interpretation Comments MCHC (test code = MCHC) 32.9 32.0-36.0 [facility] HospitalUduqugtIOQOQSYMZJ7842-18-62 16:09:00 Test Item Value Reference Range Interpretation Comments RDW (test code = RDW) 17.5 11.5-14.5 [facility] HospitalJhhlsmqIYYMDQBAKC2460-43-47 16:09:00 Test Item Value Reference Range Interpretation Comments Platelet (test code = Platelet) 253 133-450 [facility] HospitalVslmwbwXGWZOGEJUG9312-71-82 16:09:00 Test Item Value Reference Range Interpretation Comments MPV (test code = MPV) 7.8 7.4-10.4 [place] 111102-12-08 16:09:00 Test Item Value Reference Range Interpretation Comments Segs (test code = Segs) 50.9 45.0-75.0 [facility] HospitalMyycqcaDNVNMKFTGY5739-71-52 16:09:00 Test Item Value Reference Range Interpretation Comments Lymphocytes (test code = Lymphocytes) 39.1 20.0-40.0 [facility] HospitalRtvhqzuIRYXTBLDVD3000-45-03 16:09:00 Test Item Value Reference Range Interpretation Comments Monocytes (test code = Monocytes) 6.6 2.0-12.0 [facility] HospitalUmnmgcgOGPVJWWVRG7252-47-48 16:09:00 Test Item Value Reference Range Interpretation Comments Eosinophils (test code = 2.2 See_Comment [A utomated message] The Eosinophils) system which ge nerated this result tra nsmitted reference range : <=4.0. The reference r calli was not used to int erpret this result as normal/abnormal . [place] 111102-12-08 16:09:00 Test Item Value Reference Range Interpretation Comments Basophils (test code = 1.2 See_Comment [Aut omated message] The Basophils) system which ge nerated this result tra nsmitted reference range : <=1.0. The reference r calli was not used to int erpret this result as normal/abnormal . [place] 111102-12-08 16:09:00 Test Item Value Reference Range Interpretation Comments Neutrophils # (test code = Neutrophils 2.1 1.5-8.1 #) [place] 111102-12-08 16:09:00 Test Item Value Reference Range Interpretation Comments Lymphocytes # (test code = Lymphocytes 1.6 1.0-5.5 #) [place] [address]-12-08 16:09:00 Test Item Value Reference Range Interpretation Comments Monocytes # (test code 0.3 See_Comment [Aut omated message] The = Monocytes #) system which generated this result tra nsmitted reference range : <=0.8. The reference r calli was not used to int erpret this result as normal/abnormal . [place] 111102-12-08 16:09:00 Test Item Value Reference Range Interpretation Comments Eosinophils # (test code 0.1 See_Comment [A utomated message] The = Eosinophils #) system whic h generated this result tra nsmitted reference range : <=0.5. The reference r calli was not used to int erpret this result as normal/abnormal . [place] 111102-12-08 16:09:00 Test Item Value Reference Range Interpretation Comments Basophils # (test code 0.1 See_Comment [Aut omated message] The = Basophils #) system which generated this result tra nsmitted reference range : <=0.2. The reference r calli was not used to int erpret this result as normal/abnormal . [place] 111102-12-08 16:09:00 Test Item Value Reference Range Interpretation Comments WBC (test code = WBC) 4.1 3.7-10.4 [place] 111102-12-08 16:09:00 Test Item Value Reference Range Interpretation Comments RBC (test code = RBC) 2.88 4.20-5.40 [place] [address]-12-08 16:09:00 Test Item Value Reference Range Interpretation Comments Hgb (test code = Hgb) 9.8 12.0-16.0 [place] [address]-12-08 16:09:00 Test Item Value Reference Range Interpretation Comments Hct (test code = Hct) 29.7 36.0-48.0 [place] [address]-12-08 16:09:00 Test Item Value Reference Range Interpretation Comments MCV (test code = MCV) 103.4 80.0-98.0 [facility] HospitalOxsvbicPRDGNQGWEC6561-04-74 16:09:00 Test Item Value Reference Range Interpretation Comments MCH (test code = MCH) 34.0 pg 27.0-31.0 [facility] HospitalIvnchquQTDYWFVWZV9940-20-92 16:09:00 Test Item Value Reference Range Interpretation Comments MCHC (test code = MCHC) 32.9 32.0-36.0 [facility] HospitalAamfqkbKLMUDTPQMR2642-57-21 16:09:00 Test Item Value Reference Range Interpretation Comments RDW (test code = RDW) 17.5 11.5-14.5 [facility] HospitalRqjgoonBNFECKJTFC6451-22-02 16:09:00 Test Item Value Reference Range Interpretation Comments Platelet (test code = Platelet) 253 133-450 [facility] HospitalKijjdjpHTLBRZSDEB5680-99-94 16:09:00 Test Item Value Reference Range Interpretation Comments MPV (test code = MPV) 7.8 7.4-10.4 [facility]2022-12-07 19:25:00 Test Item Value Reference Range Interpretation Comments Vitamin B12 Lvl (test code = Vitamin 670 B12 Lvl) [facility]2022-12-07 19:25:00 Test Item Value Reference Range Interpretation Comments Folate Lvl (test code = Folate Lvl) 15.2 [facility]WpwjhqfQGZWWHGNG0009-68-53 19:25:00 Test Item Value Reference Range Interpretation Comments Vitamin B12 Lvl (test code = Vitamin 124 269-0348 B12 Lvl) [facility] HospitalTmsxsjlBSLWYJEPS4354-18-18 19:25:00 Test Item Value Reference Range Interpretation Comments Folate Lvl (test code = Folate Lvl) 15.2 [facility]2022-12-07 19:25:00 Test Item Value Reference Range Interpretation Comments Vitamin B12 Lvl (test code = Vitamin 670 B12 Lvl) [facility]2022-12-07 19:25:00 Test Item Value Reference Range Interpretation Comments Folate Lvl (test code = Folate Lvl) 15.2 [facility] HospitalJnvudovDYSJKQSYG8775-56-05 19:25:00 Test Item Value Reference Range Interpretation Comments Vitamin B12 Lvl (test code = Vitamin 696 027-2068 B12 Lvl) [facility] HospitalFmzabtjCMSJERKNK3442-59-90 19:25:00 Test Item Value Reference Range Interpretation Comments Folate Lvl (test code = Folate Lvl) 15.2 [facility]2022-12-07 19:25:00 Test Item Value Reference Range Interpretation Comments Vitamin B12 Lvl (test code = Vitamin 670 B12 Lvl) [facility]2022-12-07 19:25:00 Test Item Value Reference Range Interpretation Comments Folate Lvl (test code = Folate Lvl) 15.2 [facility] HospitalZknrxteZBVHLHNIO3602-77-76 19:25:00 Test Item Value Reference Range Interpretation Comments Vitamin B12 Lvl (test code = Vitamin 201 140-3456 B12 Lvl) [facility] HospitalPgcwfknMWMQUISQQ4229-06-92 19:25:00 Test Item Value Reference Range Interpretation Comments Folate Lvl (test code = Folate Lvl) 15.2 [facility]2022-12-07 19:25:00 Test Item Value Reference Range Interpretation Comments Vitamin B12 Lvl (test code = Vitamin 670 B12 Lvl) [facility]2022-12-07 19:25:00 Test Item Value Reference Range Interpretation Comments Folate Lvl (test code = Folate Lvl) 15.2 [facility] HospitalShkmggaTBDCIMUDM3897-89-03 19:25:00 Test Item Value Reference Range Interpretation Comments Vitamin B12 Lvl (test code = Vitamin 633 720-1039 B12 Lvl) [facility] HospitalFgokqflSJXLPWEGY0179-37-30 19:25:00 Test Item Value Reference Range Interpretation Comments Folate Lvl (test code = Folate Lvl) 15.2 [facility]2022-12-07 19:25:00 Test Item Value Reference Range Interpretation Comments Vitamin B12 Lvl (test code = Vitamin 670 B12 Lvl) [facility]2022-12-07 19:25:00 Test Item Value Reference Range Interpretation Comments Folate Lvl (test code = Folate Lvl) 15.2 [facility] HospitalEzeicxpUTXIJUFUW1299-79-03 19:25:00 Test Item Value Reference Range Interpretation Comments Vitamin B12 Lvl (test code = Vitamin 671 677-8350 B12 Lvl) [facility] HospitalGltmyaoHQPSVWXNB9544-95-54 19:25:00 Test Item Value Reference Range Interpretation Comments Folate Lvl (test code = Folate Lvl) 15.2 [facility]2022-12-07 19:25:00 Test Item Value Reference Range Interpretation Comments Vitamin B12 Lvl (test code = Vitamin 670 B12 Lvl) [facility]2022-12-07 19:25:00 Test Item Value Reference Range Interpretation Comments Folate Lvl (test code = Folate Lvl) 15.2 [facility] HospitalTztgqoxRGCNNBNVR3528-40-01 19:25:00 Test Item Value Reference Range Interpretation Comments Vitamin B12 Lvl (test code = Vitamin 441 684-3689 B12 Lvl) [facility] HospitalOaidaclDSIYHBANR6493-81-02 19:25:00 Test Item Value Reference Range Interpretation Comments Folate Lvl (test code = Folate Lvl) 15.2 [facility]: [id number] 12:53:00 Test Item Value Reference Range Interpretation Comments Culture: Blood (test code No Growth At 3 Days = Culture: Blood) [facility]: Ibjzp2570-77-26 12:53:00 Test Item Value Reference Range Interpretation Comments Culture: Blood (test code No Growth At 3 Days = Culture: Blood) [facility]: Xslzi6504-67-04 12:53:00 Test Item Value Reference Range Interpretation Comments Culture: Blood (test code No Growth At 3 Days = Culture: Blood) [facility]: [id number] 12:53:00 Test Item Value Reference Range Interpretation Comments Culture: Blood (test code No Growth At 3 Days = Culture: Blood) [facility]: [id number] 12:53:00 Test Item Value Reference Range Interpretation Comments Culture: Blood (test code No Growth At 3 Days = Culture: Blood) [facility]: [id number] 12:53:00 Test Item Value Reference Range Interpretation Comments Culture: Blood (test code No Growth At 3 Days = Culture: Blood) [facility]2022-12-07 09:17:00 Test Item Value Reference Range Interpretation Comments Glucose Lvl (test code = Glucose Lvl) 86 70-[address] [facility]2022-12-07 09:17:00 Test Item Value Reference Range Interpretation Comments BUN (test code = BUN) 58 7-22 [place] 196222-12-07 09:17:00 Test Item Value Reference Range Interpretation Comments Creatinine Lvl (test code = Creatinine 7.97 0.50-1.40 Lvl) [place] 196222-12-07 09:17:00 Test Item Value Reference Range Interpretation Comments Sodium Lvl (test code = Sodium Lvl) 134 135-145 [place] 196222-12-07 09:17:00 Test Item Value Reference Range Interpretation Comments Potassium Lvl (test code = Potassium 3.7 3.5-5.1 Lvl) [place] 196222-12-07 09:17:00 Test Item Value Reference Range Interpretation Comments Chloride Lvl (test code = Chloride Lvl) 98 95-109 [place] 196222-12-07 09:17:00 Test Item Value Reference Range Interpretation Comments CO2 (test code = CO2) 25 24-32 [place] 196222-12-07 09:17:00 Test Item Value Reference Range Interpretation Comments Calcium Lvl (test code = Calcium Lvl) 8.7 8.5-10.5 [place] 196222-12-07 09:17:00 Test Item Value Reference Range Interpretation Comments AGAP (test code = AGAP) 14.7 10.0-20.0 [place] 196222-12-07 09:17:00 Test Item Value Reference Range Interpretation Comments eGFR (test code = eGFR) 5 [place] 111102-12-07 09:17:00 Test Item Value Reference Range Interpretation Comments Segs (test code = Segs) 61.0 45.0-75.0 [place] [address]-12-07 09:17:00 Test Item Value Reference Range Interpretation Comments Lymphocytes (test code = Lymphocytes) 29.7 20.0-40.0 [place] 111102-12-07 09:17:00 Test Item Value Reference Range Interpretation Comments Monocytes (test code = Monocytes) 6.0 2.0-12.[address]12-07 09:17:00 Test Item Value Reference Range Interpretation Comments Eosinophils (test code = 2.4 See_Comment [A utomated message] The Eosinophils) system which ge nerated this result tra nsmitted reference range : <=4.0. The reference r calli was not used to int erpret this result as normal/abnormal . [place] 111102-12-07 09:17:00 Test Item Value Reference Range Interpretation Comments Basophils (test code = 0.9 See_Comment [Aut omated message] The Basophils) system which ge nerated this result tra nsmitted reference range : <=1.0. The reference r calli was not used to int erpret this result as normal/abnormal . [facility] HospitalSlpybirNKWKXJRZXC6542-01-42 09:17:00 Test Item Value Reference Range Interpretation Comments Neutrophils # (test code = Neutrophils 2.1 1.5-8.1 #) [place] 111102-12-07 09:17:00 Test Item Value Reference Range Interpretation Comments Lymphocytes # (test code = Lymphocytes 1.0 1.0-5.5 #) [place] 111102-12-07 09:17:00 Test Item Value Reference Range Interpretation Comments Monocytes # (test code 0.2 See_Comment [Aut omated message] The = Monocytes #) system which generated this result tra nsmitted reference range : <=0.8. The reference r calli was not used to int erpret this result as normal/abnormal . [place] 111102-12-07 09:17:00 Test Item Value Reference Range Interpretation Comments Eosinophils # (test code 0.1 See_Comment [A utomated message] The = Eosinophils #) system whic h generated this result tra nsmitted reference range : <=0.5. The reference r calli was not used to int erpret this result as normal/abnormal . [facility] HospitalHhxsudtDFKTGMVZDU4296-63-10 09:17:00 Test Item Value Reference Range Interpretation Comments WBC (test code = WBC) 3.5 3.7-10.4 [place] 111102-12-07 09:17:00 Test Item Value Reference Range Interpretation Comments RBC (test code = RBC) 2.81 4.20-5.40 [place] [address]-12-07 09:17:00 Test Item Value Reference Range Interpretation Comments Hgb (test code = Hgb) 9.7 12.0-16.0 [place] [address]-12-07 09:17:00 Test Item Value Reference Range Interpretation Comments Hct (test code = Hct) 29.3 36.0-48.0 [place] [address]-12-07 09:17:00 Test Item Value Reference Range Interpretation Comments MCV (test code = MCV) 104.2 80.0-98.0 [place] 111102-12-07 09:17:00 Test Item Value Reference Range Interpretation Comments MCH (test code = MCH) 34.6 pg 27.0-31.0 [place] 111102-12-07 09:17:00 Test Item Value Reference Range Interpretation Comments MCHC (test code = MCHC) 33.2 32.0-36.0 [place] 111102-12-07 09:17:00 Test Item Value Reference Range Interpretation Comments RDW (test code = RDW) 17.5 11.5-14.5 [place] 111102-12-07 09:17:00 Test Item Value Reference Range Interpretation Comments Platelet (test code = Platelet) 287 133-450 [place] 111102-12-07 09:17:00 Test Item Value Reference Range Interpretation Comments MPV (test code = MPV) 8.4 7.4-10.4 [place] [address]-12-07 09:17:00 Test Item Value Reference Range Interpretation Comments Hep Bs Ag (test code Negative *NA*(03/01/22 = Hep Bs Ag) 3:17 AM) [place] [address]-12-07 09:17:00 Test Item Value Reference Range Interpretation Comments Hep Bs Ag (test code Negative *NA*(03/01/22 = Hep Bs Ag) 3:17 AM) [facility]2022-12-07 09:17:00 Test Item Value Reference Range Interpretation Comments Glucose Lvl (test code = Glucose Lvl) 86 70-[address] [facility]2022-12-07 09:17:00 Test Item Value Reference Range Interpretation Comments BUN (test code = BUN) 58 7-22 [place] 196222-12-07 09:17:00 Test Item Value Reference Range Interpretation Comments Creatinine Lvl (test code = Creatinine 7.97 0.50-1.40 Lvl) [place] 196222-12-07 09:17:00 Test Item Value Reference Range Interpretation Comments Sodium Lvl (test code = Sodium Lvl) 134 135-145 [place] 196222-12-07 09:17:00 Test Item Value Reference Range Interpretation Comments Potassium Lvl (test code = Potassium 3.7 3.5-5.1 Lvl) [place] 196222-12-07 09:17:00 Test Item Value Reference Range Interpretation Comments Chloride Lvl (test code = Chloride Lvl) 98 95-109 [place] 196222-12-07 09:17:00 Test Item Value Reference Range Interpretation Comments CO2 (test code = CO2) 25 24-32 [place] [address]-12-07 09:17:00 Test Item Value Reference Range Interpretation Comments Calcium Lvl (test code = Calcium Lvl) 8.7 8.5-10.5 [place] 196222-12-07 09:17:00 Test Item Value Reference Range Interpretation Comments AGAP (test code = AGAP) 14.7 10.0-20.[address]12-07 09:17:00 Test Item Value Reference Range Interpretation Comments eGFR (test code = eGFR) 5 [place] 111102-12-07 09:17:00 Test Item Value Reference Range Interpretation Comments Segs (test code = Segs) 61.0 45.0-75.0 [place] 111102-12-07 09:17:00 Test Item Value Reference Range Interpretation Comments Lymphocytes (test code = Lymphocytes) 29.7 20.0-40.0 [place] 111102-12-07 09:17:00 Test Item Value Reference Range Interpretation Comments Monocytes (test code = Monocytes) 6.0 2.0-12.0 [place] [address]-12-07 09:17:00 Test Item Value Reference Range Interpretation Comments Eosinophils (test code = 2.4 See_Comment [A utomated message] The Eosinophils) system which ge nerated this result tra nsmitted reference range : <=4.0. The reference r calli was not used to int erpret this result as normal/abnormal . [place] 111102-12-07 09:17:00 Test Item Value Reference Range Interpretation Comments Basophils (test code = 0.9 See_Comment [Aut omated message] The Basophils) system which ge nerated this result tra nsmitted reference range : <=1.0. The reference r calli was not used to int erpret this result as normal/abnormal . [place] 111102-12-07 09:17:00 Test Item Value Reference Range Interpretation Comments Neutrophils # (test code = Neutrophils 2.1 1.5-8.1 #) [place] 111102-12-07 09:17:00 Test Item Value Reference Range Interpretation Comments Lymphocytes # (test code = Lymphocytes 1.0 1.0-5.5 #) [place] 111102-12-07 09:17:00 Test Item Value Reference Range Interpretation Comments Monocytes # (test code 0.2 See_Comment [Aut omated message] The = Monocytes #) system which generated this result tra nsmitted reference range : <=0.8. The reference r calli was not used to int erpret this result as normal/abnormal . [place] 111102-12-07 09:17:00 Test Item Value Reference Range Interpretation Comments Eosinophils # (test code 0.1 See_Comment [A utomated message] The = Eosinophils #) system whic h generated this result tra nsmitted reference range : <=0.5. The reference r calli was not used to int erpret this result as normal/abnormal . [place] 111102-12-07 09:17:00 Test Item Value Reference Range Interpretation Comments WBC (test code = WBC) 3.5 3.7-10.4 [place] 111102-12-07 09:17:00 Test Item Value Reference Range Interpretation Comments RBC (test code = RBC) 2.81 4.20-5.40 [place] [address]-12-07 09:17:00 Test Item Value Reference Range Interpretation Comments Hgb (test code = Hgb) 9.7 12.0-16.0 [place] [address]-12-07 09:17:00 Test Item Value Reference Range Interpretation Comments Hct (test code = Hct) 29.3 36.0-48.0 [place] [address]-12-07 09:17:00 Test Item Value Reference Range Interpretation Comments MCV (test code = MCV) 104.2 80.0-98.0 [place] 111102-12-07 09:17:00 Test Item Value Reference Range Interpretation Comments MCH (test code = MCH) 34.6 pg 27.0-31.0 [place] [address]-12-07 09:17:00 Test Item Value Reference Range Interpretation Comments MCHC (test code = MCHC) 33.2 32.0-36.0 [place] 111102-12-07 09:17:00 Test Item Value Reference Range Interpretation Comments RDW (test code = RDW) 17.5 11.5-14.5 [place] 111102-12-07 09:17:00 Test Item Value Reference Range Interpretation Comments Platelet (test code = Platelet) 287 133-450 [place] 111102-12-07 09:17:00 Test Item Value Reference Range Interpretation Comments MPV (test code = MPV) 8.4 7.4-10.4 [place] 966362-12-07 09:17:00 Test Item Value Reference Range Interpretation Comments Hep Bs Ag (test code Negative *NA*(03/01/22 = Hep Bs Ag) 3:17 AM) [place] [address]-12-07 09:17:00 Test Item Value Reference Range Interpretation Comments Hep Bs Ag (test code Negative *NA*(03/01/22 = Hep Bs Ag) 3:17 AM) [facility]2022-12-07 09:17:00 Test Item Value Reference Range Interpretation Comments Glucose Lvl (test code = Glucose Lvl) 86 70-99 [place] 196222-12-07 09:17:00 Test Item Value Reference Range Interpretation Comments BUN (test code = BUN) 58 7-[address] [facility]2022-12-07 09:17:00 Test Item Value Reference Range Interpretation Comments Creatinine Lvl (test code = Creatinine 7.97 0.50-1.40 Lvl) [place] 196222-12-07 09:17:00 Test Item Value Reference Range Interpretation Comments Sodium Lvl (test code = Sodium Lvl) 134 135-145 [place] 196222-12-07 09:17:00 Test Item Value Reference Range Interpretation Comments Potassium Lvl (test code = Potassium 3.7 3.5-5.1 Lvl) [place] 196222-12-07 09:17:00 Test Item Value Reference Range Interpretation Comments Chloride Lvl (test code = Chloride Lvl) 98 95-109 [place] 196222-12-07 09:17:00 Test Item Value Reference Range Interpretation Comments CO2 (test code = CO2) 25 24-32 [place] 196222-12-07 09:17:00 Test Item Value Reference Range Interpretation Comments Calcium Lvl (test code = Calcium Lvl) 8.7 8.5-10.5 [place] 196222-12-07 09:17:00 Test Item Value Reference Range Interpretation Comments AGAP (test code = AGAP) 14.7 10.0-20.0 [place] 196222-12-07 09:17:00 Test Item Value Reference Range Interpretation Comments eGFR (test code = eGFR) 5 [place] 111102-12-07 09:17:00 Test Item Value Reference Range Interpretation Comments Segs (test code = Segs) 61.0 45.0-75.0 [place] 111102-12-07 09:17:00 Test Item Value Reference Range Interpretation Comments Lymphocytes (test code = Lymphocytes) 29.7 20.0-40.0 [place] 111102-12-07 09:17:00 Test Item Value Reference Range Interpretation Comments Monocytes (test code = Monocytes) 6.0 2.0-12.0 [place] 111102-12-07 09:17:00 Test Item Value Reference Range Interpretation Comments Eosinophils (test code = 2.4 See_Comment [A utomated message] The Eosinophils) system which ge nerated this result tra nsmitted reference range : <=4.0. The reference r calli was not used to int erpret this result as normal/abnormal . [place] 111102-12-07 09:17:00 Test Item Value Reference Range Interpretation Comments Basophils (test code = 0.9 See_Comment [Aut omated message] The Basophils) system which ge nerated this result tra nsmitted reference range : <=1.0. The reference r calli was not used to int erpret this result as normal/abnormal . [place] 111102-12-07 09:17:00 Test Item Value Reference Range Interpretation Comments Neutrophils # (test code = Neutrophils 2.1 1.5-8.1 #) [place] 111102-12-07 09:17:00 Test Item Value Reference Range Interpretation Comments Lymphocytes # (test code = Lymphocytes 1.0 1.0-5.5 #) [place] 111102-12-07 09:17:00 Test Item Value Reference Range Interpretation Comments Monocytes # (test code 0.2 See_Comment [Aut omated message] The = Monocytes #) system which generated this result tra nsmitted reference range : <=0.8. The reference r calli was not used to int erpret this result as normal/abnormal . [facility]zujZOFZRCLYHX7303-51-77 09:17:00 Test Item Value Reference Range Interpretation Comments Eosinophils # (test code 0.1 See_Comment [A utomated message] The = Eosinophils #) system whic h generated this result tra nsmitted reference range : <=0.5. The reference r calli was not used to int erpret this result as normal/abnormal . [facility] HospitalBebsbgkGDSCLENHTW5574-89-77 09:17:00 Test Item Value Reference Range Interpretation Comments WBC (test code = WBC) 3.5 3.7-10.4 [place] 111102-12-07 09:17:00 Test Item Value Reference Range Interpretation Comments RBC (test code = RBC) 2.81 4.20-5.40 [place] 111102-12-07 09:17:00 Test Item Value Reference Range Interpretation Comments Hgb (test code = Hgb) 9.7 12.0-16.0 [facility] HospitalYcpdiiqVSAYMFLUPX7358-13-77 09:17:00 Test Item Value Reference Range Interpretation Comments Hct (test code = Hct) 29.3 36.0-48.0 [place] 111102-12-07 09:17:00 Test Item Value Reference Range Interpretation Comments MCV (test code = MCV) 104.2 80.0-98.0 [place] 111102-12-07 09:17:00 Test Item Value Reference Range Interpretation Comments MCH (test code = MCH) 34.6 pg 27.0-31.0 [place] 111102-12-07 09:17:00 Test Item Value Reference Range Interpretation Comments MCHC (test code = MCHC) 33.2 32.0-36.0 [facility] HospitalBofffshZIOZXQJSFC0576-24-63 09:17:00 Test Item Value Reference Range Interpretation Comments RDW (test code = RDW) 17.5 11.5-14.5 [place] 111102-12-07 09:17:00 Test Item Value Reference Range Interpretation Comments Platelet (test code = Platelet) 287 133-450 [facility]ys[facility]acFCXGUBVSEG1057-42-71 09:17:00 Test Item Value Reference Range Interpretation Comments MPV (test code = MPV) 8.4 7.4-10.4 [place] 966362-12-07 09:17:00 Test Item Value Reference Range Interpretation Comments Hep Bs Ag (test code Negative *NA*(03/01/22 = Hep Bs Ag) 3:17 AM) [place] 966362-12-07 09:17:00 Test Item Value Reference Range Interpretation Comments Hep Bs Ag (test code Negative *NA*(03/01/22 = Hep Bs Ag) 3:17 AM) [place] 196222-12-07 09:17:00 Test Item Value Reference Range Interpretation Comments Glucose Lvl (test code = Glucose Lvl) 86 70-99 [place] 196222-12-07 09:17:00 Test Item Value Reference Range Interpretation Comments BUN (test code = BUN) 58 7-22 [place] 196222-12-07 09:17:00 Test Item Value Reference Range Interpretation Comments Creatinine Lvl (test code = Creatinine 7.97 0.50-1.40 Lvl) [place] 196222-12-07 09:17:00 Test Item Value Reference Range Interpretation Comments Sodium Lvl (test code = Sodium Lvl) 134 135-145 [place] 196222-12-07 09:17:00 Test Item Value Reference Range Interpretation Comments Potassium Lvl (test code = Potassium 3.7 3.5-5.1 Lvl) [place] 196222-12-07 09:17:00 Test Item Value Reference Range Interpretation Comments Chloride Lvl (test code = Chloride Lvl) 98 95-109 [place] 196222-12-07 09:17:00 Test Item Value Reference Range Interpretation Comments CO2 (test code = CO2) 25 24-32 [place] 196222-12-07 09:17:00 Test Item Value Reference Range Interpretation Comments Calcium Lvl (test code = Calcium Lvl) 8.7 8.5-10.5 [place] 196222-12-07 09:17:00 Test Item Value Reference Range Interpretation Comments AGAP (test code = AGAP) 14.7 10.0-20.0 [place] 196222-12-07 09:17:00 Test Item Value Reference Range Interpretation Comments eGFR (test code = eGFR) 5 [place] [address]-12-07 09:17:00 Test Item Value Reference Range Interpretation Comments Segs (test code = Segs) 61.0 45.0-75.0 [place] [address]-12-07 09:17:00 Test Item Value Reference Range Interpretation Comments Lymphocytes (test code = Lymphocytes) 29.7 20.0-40.0 [place] [address]-12-07 09:17:00 Test Item Value Reference Range Interpretation Comments Monocytes (test code = Monocytes) 6.0 2.0-12.0 [place] [address]-12-07 09:17:00 Test Item Value Reference Range Interpretation Comments Eosinophils (test code = 2.4 See_Comment [A utomated message] The Eosinophils) system which ge nerated this result tra nsmitted reference range : <=4.0. The reference r calli was not used to int erpret this result as normal/abnormal . [place] [address]-12-07 09:17:00 Test Item Value Reference Range Interpretation Comments Basophils (test code = 0.9 See_Comment [Aut omated message] The Basophils) system which ge nerated this result tra nsmitted reference range : <=1.0. The reference r calli was not used to int erpret this result as normal/abnormal . [place] [address]-12-07 09:17:00 Test Item Value Reference Range Interpretation Comments Neutrophils # (test code = Neutrophils 2.1 1.5-8.1 #) [place] [address]-12-07 09:17:00 Test Item Value Reference Range Interpretation Comments Lymphocytes # (test code = Lymphocytes 1.0 1.0-5.5 #) [place] [address]-12-07 09:17:00 Test Item Value Reference Range Interpretation Comments Monocytes # (test code 0.2 See_Comment [Aut omated message] The = Monocytes #) system which generated this result tra nsmitted reference range : <=0.8. The reference r calli was not used to int erpret this result as normal/abnormal . [place] [address]-12-07 09:17:00 Test Item Value Reference Range Interpretation Comments Eosinophils # (test code 0.1 See_Comment [A utomated message] The = Eosinophils #) system whic h generated this result tra nsmitted reference range : <=0.5. The reference r calli was not used to int erpret this result as normal/abnormal . [facility] HospitalIqyweqwOZVIRPLCVV7927-85-37 09:17:00 Test Item Value Reference Range Interpretation Comments WBC (test code = WBC) 3.5 3.7-10.4 [facility] HospitalZwvvupnTAVRUKTTQR3572-49-20 09:17:00 Test Item Value Reference Range Interpretation Comments RBC (test code = RBC) 2.81 4.20-5.40 [facility] HospitalYrneowiCWNRBLQERP6285-58-86 09:17:00 Test Item Value Reference Range Interpretation Comments Hgb (test code = Hgb) 9.7 12.0-16.0 [facility] HospitalZsgrmrlGNCZXJAERK9053-82-80 09:17:00 Test Item Value Reference Range Interpretation Comments Hct (test code = Hct) 29.3 36.0-48.0 [facility] HospitalCkqwvtvAWMSIKXFHP8305-83-03 09:17:00 Test Item Value Reference Range Interpretation Comments MCV (test code = MCV) 104.2 80.0-98.0 [facility] HospitalBdmnxicHJHTYJBDUW0043-40-03 09:17:00 Test Item Value Reference Range Interpretation Comments MCH (test code = MCH) 34.6 pg 27.0-31.0 [facility] HospitalMcjzparYCHBILXCKS5074-96-99 09:17:00 Test Item Value Reference Range Interpretation Comments MCHC (test code = MCHC) 33.2 32.0-36.0 [facility] HospitalAfnogddUHFQADTBLA0942-25-30 09:17:00 Test Item Value Reference Range Interpretation Comments RDW (test code = RDW) 17.5 11.5-14.5 [facility] HospitalUlnenklWVARYTMNPG6596-43-44 09:17:00 Test Item Value Reference Range Interpretation Comments Platelet (test code = Platelet) 287 133-450 [facility] HospitalPcjyxudOHIEQBMKWX3749-43-80 09:17:00 Test Item Value Reference Range Interpretation Comments MPV (test code = MPV) 8.4 7.4-10.4 [facility]GH[facility]NGMOO2673-51-58 09:17:00 Test Item Value Reference Range Interpretation Comments Hep Bs Ag (test code Negative *NA*(03/01/22 = Hep Bs Ag) 3:17 AM) [facility]KnzwxydQZKBICNUZF0469-18-21 09:17:00 Test Item Value Reference Range Interpretation Comments Hep Bs Ag (test code Negative *NA*(03/01/22 = Hep Bs Ag) 3:17 AM) [facility]2022-12-07 09:17:00 Test Item Value Reference Range Interpretation Comments Glucose Lvl (test code = Glucose Lvl) 86 70-[address] [facility]2022-12-07 09:17:00 Test Item Value Reference Range Interpretation Comments BUN (test code = BUN) 58 7-[address] [facility]2022-12-07 09:17:00 Test Item Value Reference Range Interpretation Comments Creatinine Lvl (test code = Creatinine 7.97 0.50-1.40 Lvl) [facility]2022-12-07 09:17:00 Test Item Value Reference Range Interpretation Comments Sodium Lvl (test code = Sodium Lvl) 134 135-[address] [facility]2022-12-07 09:17:00 Test Item Value Reference Range Interpretation Comments Potassium Lvl (test code = Potassium 3.7 3.5-5.1 Lvl) [facility]2022-12-07 09:17:00 Test Item Value Reference Range Interpretation Comments Chloride Lvl (test code = Chloride Lvl) 98 95-109 [place] 196222-12-07 09:17:00 Test Item Value Reference Range Interpretation Comments CO2 (test code = CO2) 25 24-32 [place] 196222-12-07 09:17:00 Test Item Value Reference Range Interpretation Comments Calcium Lvl (test code = Calcium Lvl) 8.7 8.5-10.[address] [facility]2022-12-07 09:17:00 Test Item Value Reference Range Interpretation Comments AGAP (test code = AGAP) 14.7 10.0-20.0 [place] 196222-12-07 09:17:00 Test Item Value Reference Range Interpretation Comments eGFR (test code = eGFR) 5 [facility] HospitalKktlzksALDWAVUGNN9863-70-74 09:17:00 Test Item Value Reference Range Interpretation Comments Segs (test code = Segs) 61.0 45.0-75.0 [place] 111102-12-07 09:17:00 Test Item Value Reference Range Interpretation Comments Lymphocytes (test code = Lymphocytes) 29.7 20.0-40.0 [place] 111102-12-07 09:17:00 Test Item Value Reference Range Interpretation Comments Monocytes (test code = Monocytes) 6.0 2.0-12.0 [place] 111102-12-07 09:17:00 Test Item Value Reference Range Interpretation Comments Eosinophils (test code = 2.4 See_Comment [A utomated message] The Eosinophils) system which ge nerated this result tra nsmitted reference range : <=4.0. The reference r calli was not used to int erpret this result as normal/abnormal . [place] 111102-12-07 09:17:00 Test Item Value Reference Range Interpretation Comments Basophils (test code = 0.9 See_Comment [Aut omated message] The Basophils) system which ge nerated this result tra nsmitted reference range : <=1.0. The reference r calli was not used to int erpret this result as normal/abnormal . [facility] HospitalFandgjnFHGCUBTNUM2606-93-61 09:17:00 Test Item Value Reference Range Interpretation Comments Neutrophils # (test code = Neutrophils 2.1 1.5-8.1 #) [place] 111102-12-07 09:17:00 Test Item Value Reference Range Interpretation Comments Lymphocytes # (test code = Lymphocytes 1.0 1.0-5.5 #) [place] 111102-12-07 09:17:00 Test Item Value Reference Range Interpretation Comments Monocytes # (test code 0.2 See_Comment [Aut omated message] The = Monocytes #) system which generated this result tra nsmitted reference range : <=0.8. The reference r calli was not used to int erpret this result as normal/abnormal . [place] 111102-12-07 09:17:00 Test Item Value Reference Range Interpretation Comments Eosinophils # (test code 0.1 See_Comment [A utomated message] The = Eosinophils #) system whic h generated this result tra nsmitted reference range : <=0.5. The reference r calli was not used to int erpret this result as normal/abnormal . [place] 111102-12-07 09:17:00 Test Item Value Reference Range Interpretation Comments WBC (test code = WBC) 3.5 3.7-10.4 [facility]TgamjlwZSPFBCMDVS0396-65-62 09:17:00 Test Item Value Reference Range Interpretation Comments RBC (test code = RBC) 2.81 4.20-5.40 [facility]JdluoffSRLSJCUHHX6013-82-00 09:17:00 Test Item Value Reference Range Interpretation Comments Hgb (test code = Hgb) 9.7 12.0-16.0 [facility] HospitalLpavgxvNMAZAIQCJS4419-62-81 09:17:00 Test Item Value Reference Range Interpretation Comments Hct (test code = Hct) 29.3 36.0-48.0 [facility] HospitalHqhzeitFRVNTAODUF0875-76-21 09:17:00 Test Item Value Reference Range Interpretation Comments MCV (test code = MCV) 104.2 80.0-98.0 [facility] HospitalEufattoCLNQLIMHBZ6978-77-26 09:17:00 Test Item Value Reference Range Interpretation Comments MCH (test code = MCH) 34.6 pg 27.0-31.0 [facility]QoehtbtSAWPUOAAMM7327-08-57 09:17:00 Test Item Value Reference Range Interpretation Comments MCHC (test code = MCHC) 33.2 32.0-36.0 [facility] HospitalFxyeoiaNRKFGDVNYA4235-86-76 09:17:00 Test Item Value Reference Range Interpretation Comments RDW (test code = RDW) 17.5 11.5-14.5 [facility] HospitalSbacqjtSQWQAUUPGD1597-90-37 09:17:00 Test Item Value Reference Range Interpretation Comments Platelet (test code = Platelet) 287 133-450 [facility] HospitalAaopewmIBZGXWBZSU9555-02-35 09:17:00 Test Item Value Reference Range Interpretation Comments MPV (test code = MPV) 8.4 7.4-10.4 [facility]GlwhdoqIFHLYMTDLQ3923-45-99 09:17:00 Test Item Value Reference Range Interpretation Comments Hep Bs Ag (test code Negative *NA*(03/01/22 = Hep Bs Ag) 3:17 AM) [facility]XxdcngyUAWGTSZKGT7484-84-24 09:17:00 Test Item Value Reference Range Interpretation Comments Hep Bs Ag (test code Negative *NA*(03/01/22 = Hep Bs Ag) 3:17 AM) [facility]2022-12-07 09:17:00 Test Item Value Reference Range Interpretation Comments Glucose Lvl (test code = Glucose Lvl) 86 70-99 [place] 196222-12-07 09:17:00 Test Item Value Reference Range Interpretation Comments BUN (test code = BUN) 58 7-22 [place] [address]-12-07 09:17:00 Test Item Value Reference Range Interpretation Comments Creatinine Lvl (test code = Creatinine 7.97 0.50-1.40 Lvl) [place] 196222-12-07 09:17:00 Test Item Value Reference Range Interpretation Comments Sodium Lvl (test code = Sodium Lvl) 134 135-145 [place] 196222-12-07 09:17:00 Test Item Value Reference Range Interpretation Comments Potassium Lvl (test code = Potassium 3.7 3.5-5.1 Lvl) [place] 196222-12-07 09:17:00 Test Item Value Reference Range Interpretation Comments Chloride Lvl (test code = Chloride Lvl) 98 95-109 [place] 196222-12-07 09:17:00 Test Item Value Reference Range Interpretation Comments CO2 (test code = CO2) 25 24-32 [place] 196222-12-07 09:17:00 Test Item Value Reference Range Interpretation Comments Calcium Lvl (test code = Calcium Lvl) 8.7 8.5-10.5 [place] 196222-12-07 09:17:00 Test Item Value Reference Range Interpretation Comments AGAP (test code = AGAP) 14.7 10.0-20.0 [place] 196222-12-07 09:17:00 Test Item Value Reference Range Interpretation Comments eGFR (test code = eGFR) 5 [place] 111102-12-07 09:17:00 Test Item Value Reference Range Interpretation Comments Segs (test code = Segs) 61.0 45.0-75.0 [place] [address]-12-07 09:17:00 Test Item Value Reference Range Interpretation Comments Lymphocytes (test code = Lymphocytes) 29.7 20.0-40.0 [place] [address]-12-07 09:17:00 Test Item Value Reference Range Interpretation Comments Monocytes (test code = Monocytes) 6.0 2.0-12.0 [place] 111102-12-07 09:17:00 Test Item Value Reference Range Interpretation Comments Eosinophils (test code = 2.4 See_Comment [A utomated message] The Eosinophils) system which ge nerated this result tra nsmitted reference range : <=4.0. The reference r calli was not used to int erpret this result as normal/abnormal . [place] 111102-12-07 09:17:00 Test Item Value Reference Range Interpretation Comments Basophils (test code = 0.9 See_Comment [Aut omated message] The Basophils) system which ge nerated this result tra nsmitted reference range : <=1.0. The reference r calli was not used to int erpret this result as normal/abnormal . [facility] HospitalHhzojrkWMKLURLIHZ5861-24-22 09:17:00 Test Item Value Reference Range Interpretation Comments Neutrophils # (test code = Neutrophils 2.1 1.5-8.1 #) [place] 111102-12-07 09:17:00 Test Item Value Reference Range Interpretation Comments Lymphocytes # (test code = Lymphocytes 1.0 1.0-5.5 #) [place] 111102-12-07 09:17:00 Test Item Value Reference Range Interpretation Comments Monocytes # (test code 0.2 See_Comment [Aut omated message] The = Monocytes #) system which generated this result tra nsmitted reference range : <=0.8. The reference r calli was not used to int erpret this result as normal/abnormal . [facility] HospitalRkpemmbMRHKGGJZAD9517-24-21 09:17:00 Test Item Value Reference Range Interpretation Comments Eosinophils # (test code 0.1 See_Comment [A utomated message] The = Eosinophils #) system whic h generated this result tra nsmitted reference range : <=0.5. The reference r calli was not used to int erpret this result as normal/abnormal . [facility] HospitalRrkhcdjACYEUEZMUQ8535-49-46 09:17:00 Test Item Value Reference Range Interpretation Comments WBC (test code = WBC) 3.5 3.7-10.4 [place] 111102-12-07 09:17:00 Test Item Value Reference Range Interpretation Comments RBC (test code = RBC) 2.81 4.20-5.40 [place] 111102-12-07 09:17:00 Test Item Value Reference Range Interpretation Comments Hgb (test code = Hgb) 9.7 12.0-16.0 [facility] HospitalGzootuoGXUMJZAOGR9135-77-05 09:17:00 Test Item Value Reference Range Interpretation Comments Hct (test code = Hct) 29.3 36.0-48.0 [facility]ShytqauJDQWTAGAIC3853-22-11 09:17:00 Test Item Value Reference Range Interpretation Comments MCV (test code = MCV) 104.2 80.0-98.0 [facility]MyisxzaXMFSKTTXAS1110-83-29 09:17:00 Test Item Value Reference Range Interpretation Comments MCH (test code = MCH) 34.6 pg 27.0-31.0 [facility] HospitalZeugezjCWZFXTEAJG3374-98-20 09:17:00 Test Item Value Reference Range Interpretation Comments MCHC (test code = MCHC) 33.2 32.0-36.0 [facility]XERPWCGAK4320-37-23 09:17:00 Test Item Value Reference Range Interpretation Comments RDW (test code = RDW) 17.5 11.5-14.5 [facility]MxqslzfOZIGNVHOXS5646-53-67 09:17:00 Test Item Value Reference Range Interpretation Comments Platelet (test code = Platelet) 287 133-450 [facility]ZrjilwtJPDRUNODVJ6542-45-10 09:17:00 Test Item Value Reference Range Interpretation Comments MPV (test code = MPV) 8.4 7.4-10.4 [facility]HvymmwpHAYTERKREI9215-90-61 09:17:00 Test Item Value Reference Range Interpretation Comments Hep Bs Ag (test code Negative *NA*(03/01/22 = Hep Bs Ag) 3:17 AM) [facility]QQZXQ4824-31-05 09:17:00 Test Item Value Reference Range Interpretation Comments Hep Bs Ag (test code Negative *NA*(03/01/22 = Hep Bs Ag) 3:17 AM) [facility] XPIKARW3177-69-79 23:13:00 Test Item Value Reference Range Interpretation Comments HS Troponin I 1 Hr (test code = HS 19 Troponin I 1 Hr) [facility] ABPNDYO7242-08-59 23:13:00 Test Item Value Reference Range Interpretation Comments HS Troponin I 0 to 1 See Note 7(12/6/22 Hour Delta (test code = 5:13 PM) HS Troponin I 0 to 1 Hour Delta) [facility]zpdqxIEUWTXKGP2303-73-88 23:13:00 Test Item Value Reference Range Interpretation Comments Trig (test code = Trig) [address] [place] 815532-12-06 23:13:00 Test Item Value Reference Range Interpretation Comments Chol (test code = Chol) 147 [facility] HospitalUjybfjtTZMTPOFCU4721-53-45 23:13:00 Test Item Value Reference Range Interpretation Comments HDL (test code = HDL) [address] [place] 815532-12-06 23:13:00 Test Item Value Reference Range Interpretation Comments Chol/HDL Ratio (test code = Chol/HDL 4.08 1 3.90-5.80 Ratio) [facility] HospitalZshkapwCAQKVUDZC0942-28-52 23:13:00 Test Item Value Reference Range Interpretation Comments LDL (Calculated) (test code = LDL 82 (Calculated)) [place] 815532-12-06 23:13:00 Test Item Value Reference Range Interpretation Comments VLDL (test code = VLDL) 29 1 [place] 815532-12-06 23:13:00 Test Item Value Reference Range Interpretation Comments TSH (test code = TSH) 3.280 0.360-3.740 [place] 815532-12-06 23:13:00 Test Item Value Reference Range Interpretation Comments Hgb A1C (test code = Hgb A1C) 4.6 [place] 815532-12-06 23:13:00 Test Item Value Reference Range Interpretation Comments HS Troponin I 1 Hr (test code = HS 19 Troponin I 1 Hr) [place] 815532-12-06 23:13:00 Test Item Value Reference Range Interpretation Comments HS Troponin I 0 to 1 See Note 5(02/28/22 Hour Delta (test code = 5:13 PM) HS Troponin I 0 to 1 Hour Delta) [place] 634842-12-06 23:13:00 Test Item Value Reference Range Interpretation Comments Trig (test code = Trig) [address] [place] 634842-12-06 23:13:00 Test Item Value Reference Range Interpretation Comments Chol (test code = Chol) [address] [place] 634842-12-06 23:13:00 Test Item Value Reference Range Interpretation Comments HDL (test code = HDL) 36 [place] 634842-12-06 23:13:00 Test Item Value Reference Range Interpretation Comments Chol/HDL Ratio (test code = Chol/HDL 4.08 1 3.90-5.80 Ratio) [facility] LakeFlkntdlMOVJDE9162-78-75 23:13:00 Test Item Value Reference Range Interpretation Comments LDL (Calculated) (test code = LDL 82 (Calculated)) [facility] LakeHfhftcyUUWOPV6570-46-29 23:13:00 Test Item Value Reference Range Interpretation Comments VLDL (test code = VLDL) 29 1 [facility] LakeannSPECIAL FORPWPONK5227-63-90 23:13:00 Test Item Value Reference Range Interpretation Comments Hgb A1C (test code = Hgb A1C) 4.6 [facility] LakeannCARDIAC NTIUIEC3810-49-22 23:13:00 Test Item Value Reference Range Interpretation Comments HS Troponin I 1 Hr (test code = HS 19 Troponin I 1 Hr) [facility] LakeannCARDIAC SIXOYPV9271-84-25 23:13:00 Test Item Value Reference Range Interpretation Comments HS Troponin I 0 to 1 See Note 7(02/28/22 Hour Delta (test code = 5:13 PM) HS Troponin I 0 to 1 Hour Delta) [facility] LakePndksbyWKLISBOBH9278-36-17 23:13:00 Test Item Value Reference Range Interpretation Comments Trig (test code = Trig) 147 [facility] LakeHilrgxeBXUPNINTQ9089-22-47 23:13:00 Test Item Value Reference Range Interpretation Comments Chol (test code = Chol) 147 [facility] LakeWwvoycyKBEHIWESD0640-49-59 23:13:00 Test Item Value Reference Range Interpretation Comments HDL (test code = HDL) 36 [facility] LakeEwfjdaoZEPGBEZXJ4189-12-41 23:13:00 Test Item Value Reference Range Interpretation Comments Chol/HDL Ratio (test code = Chol/HDL 4.08 1 3.90-5.80 Ratio) [facility] LakeEepnspyLKHQRLFQH6138-08-48 23:13:00 Test Item Value Reference Range Interpretation Comments LDL (Calculated) (test code = LDL 82 (Calculated)) [facility] LakeYzcfhxrGLHAEFSEJ4354-40-62 23:13:00 Test Item Value Reference Range Interpretation Comments VLDL (test code = VLDL) 29 1 [facility] HtacisiHRVAZXXSE9199-26-59 23:13:00 Test Item Value Reference Range Interpretation Comments TSH (test code = TSH) 3.280 0.360-3.740 [facility] LakeXtsdiqcRNWTUHPHC4014-67-29 23:13:00 Test Item Value Reference Range Interpretation Comments Hgb A1C (test code = Hgb A1C) 4.6 [facility] LakeCvpofmeSVCEGFNUR5934-01-17 23:13:00 Test Item Value Reference Range Interpretation Comments HS Troponin I 1 Hr (test code = HS 19 Troponin I 1 Hr) [facility] LakeLkldubhXECRACHYE8914-74-01 23:13:00 Test Item Value Reference Range Interpretation Comments HS Troponin I 0 to 1 See Note 5(02/28/22 Hour Delta (test code = 5:13 PM) HS Troponin I 0 to 1 Hour Delta) [facility] LakeCcrydfpORZJYE5293-54-91 23:13:00 Test Item Value Reference Range Interpretation Comments Trig (test code = Trig) 147 [facility] LakeZcozjcdUYOJOJ0684-95-11 23:13:00 Test Item Value Reference Range Interpretation Comments Chol (test code = Chol) 147 [facility]landJvqlnitCSEDXL5468-57-93 23:13:00 Test Item Value Reference Range Interpretation Comments HDL (test code = HDL) 36 [facility] LakeDqmwuohFCMLKY0411-50-76 23:13:00 Test Item Value Reference Range Interpretation Comments Chol/HDL Ratio (test code = Chol/HDL 4.08 1 3.90-5.80 Ratio) [facility] LakeMyvidrhSBSALL2842-73-43 23:13:00 Test Item Value Reference Range Interpretation Comments LDL (Calculated) (test code = LDL 82 (Calculated)) [facility]landJqotrjsNARKWX1681-24-84 23:13:00 Test Item Value Reference Range Interpretation Comments VLDL (test code = VLDL) 29 1 [facility]landSPECIAL BFYSABRQW9911-84-75 23:13:00 Test Item Value Reference Range Interpretation Comments Hgb A1C (test code = Hgb A1C) 4.6 [facility] LakeannCARDIAC QNOPOAC2408-34-35 23:13:00 Test Item Value Reference Range Interpretation Comments HS Troponin I 1 Hr (test code = HS 19 Troponin I 1 Hr) [facility] LakeannCARDIAC WLMPUWR6868-50-31 23:13:00 Test Item Value Reference Range Interpretation Comments HS Troponin I 0 to 1 See Note 7(02/28/22 Hour Delta (test code = 5:13 PM) HS Troponin I 0 to 1 Hour Delta) [facility]landIuubzdzRRTMQMLAB4035-02-68 23:13:00 Test Item Value Reference Range Interpretation Comments Trig (test code = Trig) [address] [place] [address]-12-06 23:13:00 Test Item Value Reference Range Interpretation Comments Chol (test code = Chol) [address] [place] [address]-12-06 23:13:00 Test Item Value Reference Range Interpretation Comments HDL (test code = HDL) 36 [place] [address]-12-06 23:13:00 Test Item Value Reference Range Interpretation Comments Chol/HDL Ratio (test code = Chol/HDL 4.08 1 3.90-5.80 Ratio) [place] [address]-12-06 23:13:00 Test Item Value Reference Range Interpretation Comments LDL (Calculated) (test code = LDL 82 (Calculated)) [address]12-06 23:13:00 Test Item Value Reference Range Interpretation Comments VLDL (test code = VLDL) 29 1 [place] [address]-12-06 23:13:00 Test Item Value Reference Range Interpretation Comments TSH (test code = TSH) 3.280 0.360-3.740 [place] [address]-12-06 23:13:00 Test Item Value Reference Range Interpretation Comments Hgb A1C (test code = Hgb A1C) 4.6 [place] [address]-12-06 23:13:00 Test Item Value Reference Range Interpretation Comments HS Troponin I 1 Hr (test code = HS 19 Troponin I 1 Hr) [address]12-06 23:13:00 Test Item Value Reference Range Interpretation Comments HS Troponin I 0 to 1 See Note 5(02/28/22 Hour Delta (test code = 5:13 PM) HS Troponin I 0 to 1 Hour Delta) [place] [address]-12-06 23:13:00 Test Item Value Reference Range Interpretation Comments Trig (test code = Trig) [address] [place] [address]-12-06 23:13:00 Test Item Value Reference Range Interpretation Comments Chol (test code = Chol) [address] [place] [address]-12-06 23:13:00 Test Item Value Reference Range Interpretation Comments HDL (test code = HDL) 36 [place] [address]-12-06 23:13:00 Test Item Value Reference Range Interpretation Comments Chol/HDL Ratio (test code = Chol/HDL 4.08 1 3.90-5.80 Ratio) [facility] LakePymfdibELAIEQ5356-21-50 23:13:00 Test Item Value Reference Range Interpretation Comments LDL (Calculated) (test code = LDL 82 (Calculated)) [facility] LakeEdbrtxnVGUGTG5787-56-37 23:13:00 Test Item Value Reference Range Interpretation Comments VLDL (test code = VLDL) [address] [facility] GUUVYWZHK7119-24-42 23:13:00 Test Item Value Reference Range Interpretation Comments Hgb A1C (test code = Hgb A1C) 4.6 [facility] LakeannCARDIAC KRYESAV5810-26-05 23:13:00 Test Item Value Reference Range Interpretation Comments HS Troponin I 1 Hr (test code = HS 19 Troponin I 1 Hr) [facility] LakeannCARDIAC AEZTZBI6786-90-22 23:13:00 Test Item Value Reference Range Interpretation Comments HS Troponin I 0 to 1 See Note 7(02/28/22 Hour Delta (test code = 5:13 PM) HS Troponin I 0 to 1 Hour Delta) [facility] LakeRrwhjunOUIARWPIB4645-87-92 23:13:00 Test Item Value Reference Range Interpretation Comments Trig (test code = Trig) 147 [facility] LakeYuuijhrQJLMIAYSW4517-33-83 23:13:00 Test Item Value Reference Range Interpretation Comments Chol (test code = Chol) 147 [facility] LakeScsvnhmDBCPOOHVX5850-74-98 23:13:00 Test Item Value Reference Range Interpretation Comments HDL (test code = HDL) 36 [facility] LakeKwckkldPHKMSQFRX7220-73-92 23:13:00 Test Item Value Reference Range Interpretation Comments Chol/HDL Ratio (test code = Chol/HDL 4.08 1 3.90-5.80 Ratio) [facility] LakeMynzpveRACBZGDYP7888-18-10 23:13:00 Test Item Value Reference Range Interpretation Comments LDL (Calculated) (test code = LDL 82 (Calculated)) [facility] LakeGwwqarzJYJIOYFES3600-29-74 23:13:00 Test Item Value Reference Range Interpretation Comments VLDL (test code = VLDL) 29 1 [facility] LakeCplqfasVGUEBLXSE2743-50-33 23:13:00 Test Item Value Reference Range Interpretation Comments TSH (test code = TSH) 3.280 0.360-3.740 [facility] LakeDpxnwstALPZXYNZR8007-97-44 23:13:00 Test Item Value Reference Range Interpretation Comments Hgb A1C (test code = Hgb A1C) 4.6 [facility] LakeOkllproGPDKXVPXS4616-58-01 23:13:00 Test Item Value Reference Range Interpretation Comments HS Troponin I 1 Hr (test code = HS 19 Troponin I 1 Hr) [facility]landSnufzcwMTMULIGDO9062-51-67 23:13:00 Test Item Value Reference Range Interpretation Comments HS Troponin I 0 to 1 See Note 5(02/28/22 Hour Delta (test code = 5:13 PM) HS Troponin I 0 to 1 Hour Delta) [facility] LakeKtcpkloXDAJNK0858-78-28 23:13:00 Test Item Value Reference Range Interpretation Comments Trig (test code = Trig) 147 [facility] LakeIkjqjoyJRAILX6231-95-99 23:13:00 Test Item Value Reference Range Interpretation Comments Chol (test code = Chol) 147 [facility]landOujprwfENMBVF4593-16-56 23:13:00 Test Item Value Reference Range Interpretation Comments HDL (test code = HDL) 36 [facility] CenterFtllugwCPUPKI7302-90-77 23:13:00 Test Item Value Reference Range Interpretation Comments Chol/HDL Ratio (test code = Chol/HDL 4.08 1 3.90-5.80 Ratio) [facility]landOfetefyKOEGOY5951-32-99 23:13:00 Test Item Value Reference Range Interpretation Comments LDL (Calculated) (test code = LDL 82 (Calculated)) [facility]landPmpxaiiJCLCQI9435-77-81 23:13:00 Test Item Value Reference Range Interpretation Comments VLDL (test code = VLDL) 29 1 [facility] IJZBCECSK8425-50-08 23:13:00 Test Item Value Reference Range Interpretation Comments Hgb A1C (test code = Hgb A1C) 4.6 [facility]landCARDIAC QRUKCHX6116-77-48 23:13:00 Test Item Value Reference Range Interpretation Comments HS Troponin I 1 Hr (test code = HS 19 Troponin I 1 Hr) [facility]landCARDIAC TXKCKZM5775-60-47 23:13:00 Test Item Value Reference Range Interpretation Comments HS Troponin I 0 to 1 See Note 7(02/28/22 Hour Delta (test code = 5:13 PM) HS Troponin I 0 to 1 Hour Delta) [facility] HospitalYjwwsokUYGZXIJVT2105-35-93 23:13:00 Test Item Value Reference Range Interpretation Comments Trig (test code = Trig) 147 [facility]landKykhifzDVHGAJIFA8838-50-65 23:13:00 Test Item Value Reference Range Interpretation Comments Chol (test code = Chol) [address] [place] 815532-12-06 23:13:00 Test Item Value Reference Range Interpretation Comments HDL (test code = HDL) 36 [place] 815532-12-06 23:13:00 Test Item Value Reference Range Interpretation Comments Chol/HDL Ratio (test code = Chol/HDL 4.08 1 3.90-5.80 Ratio) [place] 815532-12-06 23:13:00 Test Item Value Reference Range Interpretation Comments LDL (Calculated) (test code = LDL 82 (Calculated)) [address]12-06 23:13:00 Test Item Value Reference Range Interpretation Comments VLDL (test code = VLDL) 29 1 [place] [address]-12-06 23:13:00 Test Item Value Reference Range Interpretation Comments TSH (test code = TSH) 3.280 0.360-3.740 [place] 815532-12-06 23:13:00 Test Item Value Reference Range Interpretation Comments Hgb A1C (test code = Hgb A1C) 4.6 [place] 815532-12-06 23:13:00 Test Item Value Reference Range Interpretation Comments HS Troponin I 1 Hr (test code = HS 19 Troponin I 1 Hr) [place] [address]-12-06 23:13:00 Test Item Value Reference Range Interpretation Comments HS Troponin I 0 to 1 See Note 5(02/28/22 Hour Delta (test code = 5:13 PM) HS Troponin I 0 to 1 Hour Delta) [place] 634842-12-06 23:13:00 Test Item Value Reference Range Interpretation Comments Trig (test code = Trig) 147 [place] 634842-12-06 23:13:00 Test Item Value Reference Range Interpretation Comments Chol (test code = Chol) 147 [place] [address]-12-06 23:13:00 Test Item Value Reference Range Interpretation Comments HDL (test code = HDL) 36 [place] 634842-12-06 23:13:00 Test Item Value Reference Range Interpretation Comments Chol/HDL Ratio (test code = Chol/HDL 4.08 1 3.90-5.80 Ratio) [place] 634842-12-06 23:13:00 Test Item Value Reference Range Interpretation Comments LDL (Calculated) (test code = LDL 82 (Calculated)) [facility] LakeFjmhxrpORREYU1094-10-50 23:13:00 Test Item Value Reference Range Interpretation Comments VLDL (test code = VLDL) [address] [facility] EIGSFYVDF0573-04-88 23:13:00 Test Item Value Reference Range Interpretation Comments Hgb A1C (test code = Hgb A1C) 4.6 [facility] LakeannCARDIAC MRWUQIS1815-63-19 23:13:00 Test Item Value Reference Range Interpretation Comments HS Troponin I 1 Hr (test code = HS 19 Troponin I 1 Hr) [facility]landCARAC KVYUMVB1267-22-80 23:13:00 Test Item Value Reference Range Interpretation Comments HS Troponin I 0 to 1 See Note 7(02/28/22 Hour Delta (test code = 5:13 PM) HS Troponin I 0 to 1 Hour Delta) [facility] LakeUogcujoBCDARLKQD7198-04-02 23:13:00 Test Item Value Reference Range Interpretation Comments Trig (test code = Trig) 147 [facility] LakeCqhzywvLXKDQCKTZ5626-08-87 23:13:00 Test Item Value Reference Range Interpretation Comments Chol (test code = Chol) 147 [facility] LakeMdmqdmpTEWBZUTMK2129-97-53 23:13:00 Test Item Value Reference Range Interpretation Comments HDL (test code = HDL) 36 [facility] LakeQoizkllEDLYLZNUQ0625-66-01 23:13:00 Test Item Value Reference Range Interpretation Comments Chol/HDL Ratio (test code = Chol/HDL 4.08 1 3.90-5.80 Ratio) [facility] LakeLpygksoRYHNUMWAU8540-57-75 23:13:00 Test Item Value Reference Range Interpretation Comments LDL (Calculated) (test code = LDL 82 (Calculated)) [facility] LakeXsgeigwEAMIGBYAG4390-91-17 23:13:00 Test Item Value Reference Range Interpretation Comments VLDL (test code = VLDL) 29 1 [facility] LakeZcaaazkBSEWBMXML4566-99-08 23:13:00 Test Item Value Reference Range Interpretation Comments TSH (test code = TSH) 3.280 0.360-3.740 [facility] LakeDqpcqvsOOIEGPNQQ6113-45-53 23:13:00 Test Item Value Reference Range Interpretation Comments Hgb A1C (test code = Hgb A1C) 4.6 [facility] LakeHalldajABLKZDGTA2832-51-69 23:13:00 Test Item Value Reference Range Interpretation Comments HS Troponin I 1 Hr (test code = HS 19 Troponin I 1 Hr) [facility]landIskdlbkVMEAWMPRV4288-83-96 23:13:00 Test Item Value Reference Range Interpretation Comments HS Troponin I 0 to 1 See Note 5(02/28/22 Hour Delta (test code = 5:13 PM) HS Troponin I 0 to 1 Hour Delta) [facility]landXmrkvfuOCJZAF0223-20-08 23:13:00 Test Item Value Reference Range Interpretation Comments Trig (test code = Trig) 147 [facility] LakeQdhiegiSVBROH9864-80-04 23:13:00 Test Item Value Reference Range Interpretation Comments Chol (test code = Chol) 147 [facility]landKjdqlnfEQOQOV1340-03-69 23:13:00 Test Item Value Reference Range Interpretation Comments HDL (test code = HDL) 36 [facility] MainlandDpoifteAVWALE5308-88-96 23:13:00 Test Item Value Reference Range Interpretation Comments Chol/HDL Ratio (test code = Chol/HDL 4.08 1 3.90-5.80 Ratio) [facility]landOnzeqbnOFPNJV4529-61-35 23:13:00 Test Item Value Reference Range Interpretation Comments LDL (Calculated) (test code = LDL 82 (Calculated)) [facility]landSixpraqAJPLRP0258-43-64 23:13:00 Test Item Value Reference Range Interpretation Comments VLDL (test code = VLDL) [address] [facility] IYYXSPXJB2079-82-35 23:13:00 Test Item Value Reference Range Interpretation Comments Hgb A1C (test code = Hgb A1C) 4.6 [facility]landTxixdkfNTLOSC4896-96-35 23:06:11 Test Item Value Reference Range Interpretation [...] and C5-C6.Eric Benoit MD On 02/28/2022 17:05:23; [id number] [facility]XkwvkoiRSDMWH1838-02-57 23:06:11 Test Item Value Reference Range Interpretation [...] and C5-C6.Eric Benoit MD On 02/28/2022 17:05:23; [id number] [facility]landJmomnndNTSHHT8033-91-80 23:06:11 Test Item Value Reference Range Interpretation [...] and C5-C6.Eric Benoit MD On 02/28/2022 17:05:23; [id number] [facility]WundlcmLYARSK8310-36-03 23:06:11 Test Item Value Reference Range Interpretation [...] and C5-C6.Eric Benoit MD On 02/28/2022 17:05:23; [id number] [facility] HospitalVwgaxsaTGLEHO2106-02-12 23:06:11 Test Item Value Reference Range Interpretation [...] and C5-C6.Eric Benoit MD On 02/28/2022 17:05:23; [id number] [facility]landFsqnqfxTFDMYQ8250-08-21 23:06:11 Test Item Value Reference Range Interpretation [...] and C5-C6.Eric Benoit MD On 02/28/2022 17:05:23; [id number] [facility]landLmigqbyRRNGRP8573-26-97 23:02:32 Test Item Value Reference Range Interpretation [...] changes. Eric Benoit MD On 02/28/2022 17:01:52; [id number] [facility] ArlingtonMimlmnrXKCTQQ9659-30-33 23:02:32 Test Item Value Reference Range Interpretation [...] changes. Eric Benoit MD On 02/28/2022 17:01:52; [id number] [facility] ArlingtonCwqbhffRINYDC0398-70-02 23:02:32 Test Item Value Reference Range Interpretation [...] changes. Eric Benoit MD On 02/28/2022 17:01:52; [id number] [facility] HospitalZjcwwsrHEZFLL3598-75-22 23:02:32 Test Item Value Reference Range Interpretation [...] changes. Eric Benoit MD On 02/28/2022 17:01:52; [id number] [facility] HospitalBcccjsqQTKSOA9057-51-28 23:02:32 Test Item Value Reference Range Interpretation [...] changes. Eric Benoit MD On 02/28/2022 17:01:52; [id number] [facility] ArlingtonSgohhnlOCGKDP2392-19-22 23:02:32 Test Item Value Reference Range Interpretation [...] changes. Eric Benoit MD On 02/28/2022 17:01:52; [id number] [facility] HospitalVqriwjmSFBNRX0092-11-76 19:31:09 Test Item Value Reference Range Interpretation [...] findings. Nicolasa Spicer MD On 02/28/2022 13:30:43; [id number] [facility] HospitalUsfpmedLEIAGA3994-38-51 19:31:09 Test Item Value Reference Range Interpretation [...] findings. Nicolasa Spicer MD On 02/28/2022 13:30:43; [id number] [facility] ArlingtonIamudaxMPIQIE1037-81-98 19:31:09 Test Item Value Reference Range Interpretation [...] findings. Nicolasa Spicer MD On 02/28/2022 13:30:43; [id number] [facility] ArlingtonWloakztQAVVWI3850-48-37 19:31:09 Test Item Value Reference Range Interpretation [...] findings. Nicolasa Spicer MD On 02/28/2022 13:30:43; [id number] [facility] ArlingtonDpslezsHENXJQ2793-12-70 19:31:09 Test Item Value Reference Range Interpretation [...] findings. Nicolasa Spicer MD On 02/28/2022 13:30:43; [id number] [facility] ArlingtonJesclgnIAZDMS5376-14-81 19:31:09 Test Item Value Reference Range Interpretation [...] findings. Nicolasa Spicer MD On 02/28/2022 13:30:43; [id number] [facility] ArlingtonXdslevoQXETJC2498-94-15 18:58:33 Test Item Value Reference Range Interpretation [...] No occlusion or significant stenosis of the [place] of [place]. 4. No cerebral aneurysms are identified. REFERENCES: NASCET CRITERIA. The degree of stenosis in the cervical segment of the internal carotid artery is based on NASCET criteria. Normal is no stenosis. Mild is less than 50% stenosis. Moderate is 50-69% stenosis. Severe is 70% to 99% stenosis. Total occlusion is no detectable patent lumen. [place] OCEDURE INFORMATION: Exam: CTA Neck With Contrast [...] No occlusion or significant stenosis of the [place] of [place]. 4. No cerebral aneurysms are identified. REFERENCES: NASCET CRITERIA. The degree of stenosis in the cervical segment of the internal carotid artery is based on NASCET criteria. Normal is no stenosis. Mild is less than 50% stenosis. Moderate is 50-69% stenosis. Severe is 70% to 99% stenosis. Total occlusion is no detectable patent lumen. Matt Kohli MD On 02/28/2022 12:57:48; [id number] [facility] ArlingtonKgdmhlcAJHTDV9333-81-65 18:58:33 Test Item Value Reference Range Interpretation [...] No occlusion or significant stenosis of the [place] of [place]. 4. No cerebral aneurysms are identified. REFERENCES: NASCET CRITERIA. The degree of stenosis in the cervical segment of the internal carotid artery is based on NASCET criteria. Normal is no stenosis. Mild is less than 50% stenosis. Moderate is 50-69% stenosis. Severe is 70% to 99% stenosis. Total occlusion is no detectable patent lumen. [place] OCEDURE INFORMATION: Exam: CTA Neck With Contrast [...] No occlusion or significant stenosis of the [place] of [place]. 4. No cerebral aneurysms are identified. REFERENCES: NASCET CRITERIA. The degree of stenosis in the cervical segment of the internal carotid artery is based on NASCET criteria. Normal is no stenosis. Mild is less than 50% stenosis. Moderate is 50-69% stenosis. Severe is 70% to 99% stenosis. Total occlusion is no detectable patent lumen. Matt Kohli MD On 02/28/2022 12:57:48; [id number] [facility]landWaifarzZPSAIJ9015-45-19 18:58:33 Test Item Value Reference Range Interpretation [...] No occlusion or significant stenosis of the [place] of [place]. 4. No cerebral aneurysms are identified. REFERENCES: NASCET CRITERIA. The degree of stenosis in the cervical segment of the internal carotid artery is based on NASCET criteria. Normal is no stenosis. Mild is less than 50% stenosis. Moderate is 50-69% stenosis. Severe is 70% to 99% stenosis. Total occlusion is no detectable patent lumen. [place] OCEDURE INFORMATION: Exam: CTA Neck With Contrast [...] No occlusion or significant stenosis of the [place]. 4. No cerebral aneurysms are identified. REFERENCES: NASCET CRITERIA. The degree of stenosis in the cervical segment of the internal carotid artery is based on NASCET criteria. Normal is no stenosis. Mild is less than 50% stenosis. Moderate is 50-69% stenosis. Severe is 70% to 99% stenosis. Total occlusion is no detectable patent lumen. Matt Kohli MD On 02/28/2022 12:57:48; [id number] [facility]Fuw[facility]meDMXMPM4916-51-05 18:58:33 Test Item Value Reference Range Interpretation [...] No occlusion or significant stenosis of the [place]. 4. No cerebral aneurysms are identified. REFERENCES: NASCET CRITERIA. The degree of stenosis in the cervical segment of the internal carotid artery is based on NASCET criteria. Normal is no stenosis. Mild is less than 50% stenosis. Moderate is 50-69% stenosis. Severe is 70% to 99% stenosis. Total occlusion is no detectable patent lumen. [place] OCEDURE INFORMATION: Exam: CTA Neck With Contrast [...] No occlusion or significant stenosis of the [place]. 4. No cerebral aneurysms are identified. REFERENCES: NASCET CRITERIA. The degree of stenosis in the cervical segment of the internal carotid artery is based on NASCET criteria. Normal is no stenosis. Mild is less than 50% stenosis. Moderate is 50-69% stenosis. Severe is 70% to 99% stenosis. Total occlusion is no detectable patent lumen. Matt Kohli MD On 02/28/2022 12:57:48; [id number] [facility]landCenixysGVNYRT6650-43-98 18:58:33 Test Item Value Reference Range Interpretation [...] No occlusion or significant stenosis of the [place]. 4. No cerebral aneurysms are identified. REFERENCES: NASCET CRITERIA. The degree of stenosis in the cervical segment of the internal carotid artery is based on NASCET criteria. Normal is no stenosis. Mild is less than 50% stenosis. Moderate is 50-69% stenosis. Severe is 70% to 99% stenosis. Total occlusion is no detectable patent lumen. [place] OCEDURE INFORMATION: Exam: CTA Neck With Contrast [...] No occlusion or significant stenosis of the [place]. 4. No cerebral aneurysms are identified. REFERENCES: NASCET CRITERIA. The degree of stenosis in the cervical segment of the internal carotid artery is based on NASCET criteria. Normal is no stenosis. Mild is less than 50% stenosis. Moderate is 50-69% stenosis. Severe is 70% to 99% stenosis. Total occlusion is no detectable patent lumen. Matt Kohli MD On 02/28/2022 12:57:48; [id number] [id number] 18:58:33 Test Item Value Reference Range Interpretation [...] No occlusion or significant stenosis of the [place]. 4. No cerebral aneurysms are identified. REFERENCES: NASCET CRITERIA. The degree of stenosis in the cervical segment of the internal carotid artery is based on NASCET criteria. Normal is no stenosis. Mild is less than 50% stenosis. Moderate is 50-69% stenosis. Severe is 70% to 99% stenosis. Total occlusion is no detectable patent lumen. [place] OCEDURE INFORMATION: Exam: CTA Neck With Contrast [...] No occlusion or significant stenosis of the [place]. 4. No cerebral aneurysms are identified. REFERENCES: NASCET CRITERIA. The degree of stenosis in the cervical segment of the internal carotid artery is based on NASCET criteria. Normal is no stenosis. Mild is less than 50% stenosis. Moderate is 50-69% stenosis. Severe is 70% to 99% stenosis. Total occlusion is no detectable patent lumen. Matt Kohli MD On 02/28/2022 12:57:48; [id number] [facility] HospitalJahiqspREHBGW2389-10-37 18:53:32 Test Item Value Reference Range Interpretation Comments RADRPT (test code = Radiation Dose CTDIVOL = RADRPT) 0 (mGy): DLP = 1045.5 (mGy-cm)ADDENDUM: The call to the ordering clinician was initiated on 02/28/2022 at 1248 hours. The findings were discussed with Dr. Whitt on 02/28/2022 at 1252 hours.Matt Kohli MD On 02/28/2022 12:53:06; [id number] [facility] [id number] 18:53:32 Test Item Value Reference Range Interpretation Comments RADRPT (test code = Radiation Dose CTDIVOL = RADRPT) 0 (mGy): DLP = 1045.5 (mGy-cm)ADDENDUM: The call to the ordering clinician was initiated on 02/28/2022 at 1248 hours. The findings were discussed with Dr. Whitt on 02/28/2022 at 1252 hours.Matt Kohli MD On 02/28/2022 12:53:06; [id number] [facility] ArlingtonKkhwntnXUJDTT1947-14-94 18:53:32 Test Item Value Reference Range Interpretation Comments RADRPT (test code = Radiation Dose CTDIVOL = RADRPT) 0 (mGy): DLP = 1045.5 (mGy-cm)ADDENDUM: The call to the ordering clinician was initiated on 02/28/2022 at 1248 hours. The findings were discussed with Dr. Whitt on 02/28/2022 at 1252 hours.Matt Kohli MD On 02/28/2022 12:53:06; [id number] [place] [address]-12-06 18:53:32 Test Item Value Reference Range Interpretation Comments RADRPT (test code = Radiation Dose CTDIVOL = RADRPT) 0 (mGy): DLP = 1045.5 (mGy-cm)ADDENDUM: The call to the ordering clinician was initiated on 02/28/2022 at 1248 hours. The findings were discussed with Dr. Whitt on 02/28/2022 at 1252 hours.Matt Kohli MD On 02/28/2022 12:53:06; [id number] [facility] ArlingtonRuwwdrkUJSYLX2284-37-75 18:53:32 Test Item Value Reference Range Interpretation Comments RADRPT (test code = Radiation Dose CTDIVOL = RADRPT) 0 (mGy): DLP = 1045.5 (mGy-cm)ADDENDUM: The call to the ordering clinician was initiated on 02/28/2022 at 1248 hours. The findings were discussed with Dr. Whitt on 02/28/2022 at 1252 hours.Matt Kohli MD On 02/28/2022 12:53:06; [id number] [facility] ArlingtonZipwigkMPXEEG6054-64-56 18:53:32 Test Item Value Reference Range Interpretation Comments RADRPT (test code = Radiation Dose CTDIVOL = RADRPT) 0 (mGy): DLP = 1045.5 (mGy-cm)ADDENDUM: The call to the ordering clinician was initiated on 02/28/2022 at 1248 hours. The findings were discussed with Dr. Whitt on 02/28/2022 at 1252 hours.Matt Kohli MD On 02/28/2022 12:53:06; [id number] [facility]landMtzrxgaXAEGGR4634-19-51 18:49:55 Test Item Value Reference Range Interpretation [...] bilateral basal ganglia are noted. ASSESSMENT: ASPECTS ([place] Stroke Program Early CT Score) is 10. Matt Kohli MD On 02/28/2022 12:48:58; [id number] [facility] [id number] 18:49:55 Test Item Value Reference Range Interpretation [...] bilateral basal ganglia are noted. ASSESSMENT: ASPECTS ([place] Stroke Program Early CT Score) is 10. Matt Kohli MD On 02/28/2022 12:48:58; [id number] [facility]landLmnrcbzXAYNCF1268-96-92 18:49:55 Test Item Value Reference Range Interpretation [...] bilateral basal ganglia are noted. ASSESSMENT: ASPECTS ([place] Stroke Program Early CT Score) is 10. Matt Kohli MD On 02/28/2022 12:48:58; [id number] [facility] MainlandZfcbnueLWQIYP2108-09-59 18:49:55 Test Item Value Reference Range Interpretation [...] bilateral basal ganglia are noted. ASSESSMENT: ASPECTS ([place] Stroke Program Early CT Score) is 10. Matt Kohli MD On 02/28/2022 12:48:58; [id number] [facility]landLxtgqnjQPFMXD6151-25-20 18:49:55 Test Item Value Reference Range Interpretation [...] bilateral basal ganglia are noted. ASSESSMENT: ASPECTS ([place] Stroke Program Early CT Score) is 10. Matt Kohli MD On 02/28/2022 12:48:58; [id number] [facility] MainlandCualrkeIHIPWJ4657-71-70 18:49:55 Test Item Value Reference Range Interpretation [...] bilateral basal ganglia are noted. ASSESSMENT: ASPECTS ([place] Stroke Program Early CT Score) is 10. Matt Kohli MD On 02/28/2022 12:48:58; [id number] [facility] LakeannCARDIAC [id number] 18:44:00 Test Item Value Reference Range Interpretation Comments HS Troponin I Baseline (test code = HS 15 Troponin I Baseline) [facility] LakeannCARDIAC [id number] 18:44:00 Test Item Value Reference Range Interpretation Comments Total CK (test code = Total CK) 54 12-191 [place] 196222-12-06 18:44:00 Test Item Value Reference Range Interpretation Comments Glucose Lvl (test code = Glucose Lvl) 88 70-99 [place] 196222-12-06 18:44:00 Test Item Value Reference Range Interpretation Comments BUN (test code = BUN) 50 7-22 [place] 196222-12-06 18:44:00 Test Item Value Reference Range Interpretation Comments Creatinine Lvl (test code = Creatinine 6.77 0.50-1.40 Lvl) [place] 196222-12-06 18:44:00 Test Item Value Reference Range Interpretation Comments Sodium Lvl (test code = Sodium Lvl) 135 135-145 [place] 196222-12-06 18:44:00 Test Item Value Reference Range Interpretation Comments Potassium Lvl (test code = Potassium 4.3 3.5-5.1 Lvl) [place] 196222-12-06 18:44:00 Test Item Value Reference Range Interpretation Comments Chloride Lvl (test code = Chloride Lvl) 98 95-109 [place] 196222-12-06 18:44:00 Test Item Value Reference Range Interpretation Comments CO2 (test code = CO2) 29 24-32 [place] 196222-12-06 18:44:00 Test Item Value Reference Range Interpretation Comments AGAP (test code = AGAP) 12.3 10.0-20.0 [place] 196222-12-06 18:44:00 Test Item Value Reference Range Interpretation Comments Calcium Lvl (test code = Calcium Lvl) 8.9 8.5-10.5 [place] 196222-12-06 18:44:00 Test Item Value Reference Range Interpretation Comments B/C Ratio (test code = B/C Ratio) 7 1 6-25 [place] 196222-12-06 18:44:00 Test Item Value Reference Range Interpretation Comments Total Protein (test code = Total 6.8 6.4-8.4 Protein) [place] 196222-12-06 18:44:00 Test Item Value Reference Range Interpretation Comments Albumin Lvl (test code = Albumin Lvl) 2.6 3.5-5.0 [place] 196222-12-06 18:44:00 Test Item Value Reference Range Interpretation Comments Globulin (test code = Globulin) 4.2 2.7-4.2 [place] [address]-12-06 18:44:00 Test Item Value Reference Range Interpretation Comments A/G Ratio (test code = A/G Ratio) 0.6 1 0.7-1.[address]12-06 18:44:00 Test Item Value Reference Range Interpretation Comments ALT (test code = ALT) no gt See_Comment [Auto mated message] The system which ge nerated this result transmit sally reference range : <=65. The reference range was not used to interpr et this result as henrry l/abnormal. [facility] LakeC3DNA [id number] 18:44:00 Test Item Value Reference Range Interpretation Comments AST (test code = AST) 10 See_Comment [Auto mated message] The system which ge nerated this result transmit sally reference range : <=37. The reference range was not used to interpr et this result as henrry l/abnormal. [facility] MainlandAuthernative [id number] 18:44:00 Test Item Value Reference Range Interpretation Comments Alk Phos (test code = Alk Phos) 129 39-136 [facility] LakeC3DNA [id number] 18:44:00 Test Item Value Reference Range Interpretation Comments Bili Total (test code = Bili Total) 0.4 0.2-1.3 [facility] MainlandAuthernative [id number] 18:44:00 Test Item Value Reference Range Interpretation Comments eGFR (test code = eGFR) 7 [place] 815532-12-06 18:44:00 Test Item Value Reference Range Interpretation Comments HS Troponin I Baseline (test code = HS 15 Troponin I Baseline) [place] [address]-12-06 18:44:00 Test Item Value Reference Range Interpretation Comments Total CK (test code = Total CK) 54 12-191 [place] [address]-12-06 18:44:00 Test Item Value Reference Range Interpretation Comments PT (test code = PT) 14.5 s 12.0-14.7 [place] [address]-12-06 18:44:00 Test Item Value Reference Range Interpretation Comments INR (test code = INR) 1.14 1 0.85-1.17 [place] [address]-12-06 18:44:00 Test Item Value Reference Range Interpretation Comments PTT (test code = PTT) 36.9 s 22.9-35.8 [place] [address]-12-06 18:44:00 Test Item Value Reference Range Interpretation Comments WBC (test code = WBC) 5.0 3.7-10.4 [place] [address]-12-06 18:44:00 Test Item Value Reference Range Interpretation Comments RBC (test code = RBC) 3.28 4.20-5.40 [place] 111102-12-06 18:44:00 Test Item Value Reference Range Interpretation Comments Hgb (test code = Hgb) 11.3 12.0-16.0 [place] [address]-12-06 18:44:00 Test Item Value Reference Range Interpretation Comments Hct (test code = Hct) 34.1 36.0-48.0 [place] [address]-12-06 18:44:00 Test Item Value Reference Range Interpretation Comments MCV (test code = MCV) 104.0 80.0-98.0 [place] [address]-12-06 18:44:00 Test Item Value Reference Range Interpretation Comments MCH (test code = MCH) 34.4 pg 27.0-31.0 [place] 111102-12-06 18:44:00 Test Item Value Reference Range Interpretation Comments MCHC (test code = MCHC) 33.1 32.0-36.0 [place] [address]-12-06 18:44:00 Test Item Value Reference Range Interpretation Comments RDW (test code = RDW) 17.9 11.5-14.5 [place] [address]-12-06 18:44:00 Test Item Value Reference Range Interpretation Comments Platelet (test code = Platelet) 302 133-450 [facility] HospitalTyvigcsHVQBDUPWBP2944-22-83 18:44:00 Test Item Value Reference Range Interpretation Comments MPV (test code = MPV) 8.1 7.4-10.4 [place] 111102-12-06 18:44:00 Test Item Value Reference Range Interpretation Comments PT (test code = PT) 14.5 s 12.0-14.7 [place] 111102-12-06 18:44:00 Test Item Value Reference Range Interpretation Comments INR (test code = INR) 1.14 1 0.85-1.17 [place] 111102-12-06 18:44:00 Test Item Value Reference Range Interpretation Comments PTT (test code = PTT) 36.9 s 22.9-35.8 [facility] HospitalEemwhwfQDQWHSXYLS4173-96-34 18:44:00 Test Item Value Reference Range Interpretation Comments Segs (test code = Segs) 57.6 45.0-75.0 [place] 111102-12-06 18:44:00 Test Item Value Reference Range Interpretation Comments Lymphocytes (test code = Lymphocytes) 33.5 20.0-40.0 [place] 111102-12-06 18:44:00 Test Item Value Reference Range Interpretation Comments Monocytes (test code = Monocytes) 6.3 2.0-12.0 [place] [address]-12-06 18:44:00 Test Item Value Reference Range Interpretation Comments Eosinophils (test code = 2.0 See_Comment [A utomated message] The Eosinophils) system which ge nerated this result tra nsmitted reference range : <=4.0. The reference r calli was not used to int erpret this result as normal/abnormal . [facility] HospitalZogbydpNDCDHPWTKM1941-14-10 18:44:00 Test Item Value Reference Range Interpretation Comments Basophils (test code = 0.6 See_Comment [Aut omated message] The Basophils) system which ge nerated this result tra nsmitted reference range : <=1.0. The reference r calli was not used to int erpret this result as normal/abnormal . [place] 111102-12-06 18:44:00 Test Item Value Reference Range Interpretation Comments Neutrophils # (test code = Neutrophils 2.9 1.5-8.1 #) [place] [address]-12-06 18:44:00 Test Item Value Reference Range Interpretation Comments Lymphocytes # (test code = Lymphocytes 1.7 1.0-5.5 #) [place] [address]-12-06 18:44:00 Test Item Value Reference Range Interpretation Comments Monocytes # (test code 0.3 See_Comment [Aut omated message] The = Monocytes #) system which generated this result tra nsmitted reference range : <=0.8. The reference r calli was not used to int erpret this result as normal/abnormal . [facility]lfjrwvKXTTUIRYAW1952-86-88 18:44:00 Test Item Value Reference Range Interpretation Comments Eosinophils # (test code 0.1 See_Comment [A utomated message] The = Eosinophils #) system [employer] generated this result tra nsmitted reference range : <=0.5. The reference r calli was not used to int erpret this result as normal/abnormal . [facility]landYslpyegYLWYGBUJUU5615-48-61 18:44:00 Test Item Value Reference Range Interpretation Comments Coronavirus (COVID-19) Not Detected (02/28/22 CHERIE (test code = 12:44 PM) Coronavirus (COVID-19) CHERIE) [facility]landNyuxqrgUKIJWHLUZQ4897-36-60 18:44:00 Test Item Value Reference Range Interpretation Comments Coronavirus (COVID-19) Not Detected (02/28/22 CHERIE (test code = 12:44 PM) Coronavirus (COVID-19) CHERIE) [facility] LakeRed Rabbit incCARBeamExpressAC YCZLEFB7413-61-04 18:44:00 Test Item Value Reference Range Interpretation Comments HS Troponin I Baseline (test code = HS 15 Troponin I Baseline) [facility] LakeInceptus MedicalAC [id number] 18:44:00 Test Item Value Reference Range Interpretation Comments Total CK (test code = Total CK) 54 12-191 [facility] LakeC3DNA [id number] 18:44:00 Test Item Value Reference Range Interpretation Comments Glucose Lvl (test code = Glucose Lvl) 88 70-99 [facility] LakeC3DNA [id number] 18:44:00 Test Item Value Reference Range Interpretation Comments BUN (test code = BUN) 50 7-22 [facility] LakeC3DNA [id number] 18:44:00 Test Item Value Reference Range Interpretation Comments Creatinine Lvl (test code = Creatinine 6.77 0.50-1.40 Lvl) [facility] LakeC3DNA [id number] 18:44:00 Test Item Value Reference Range Interpretation Comments Sodium Lvl (test code = Sodium Lvl) 135 135-145 [facility] LakeC3[facility] [id number] 18:44:00 Test Item Value Reference Range Interpretation Comments Potassium Lvl (test code = Potassium 4.3 3.5-5.1 Lvl) [facility] LakeC3DNA [id number] 18:44:00 Test Item Value Reference Range Interpretation Comments Chloride Lvl (test code = Chloride Lvl) 98 95-109 [address]12-06 18:44:00 Test Item Value Reference Range Interpretation Comments CO2 (test code = CO2) 29 24-32 [place] [address]-12-06 18:44:00 Test Item Value Reference Range Interpretation Comments AGAP (test code = AGAP) 12.3 10.0-20.0 [address]12-06 18:44:00 Test Item Value Reference Range Interpretation Comments Calcium Lvl (test code = Calcium Lvl) 8.9 8.5-10.[address]12-06 18:44:00 Test Item Value Reference Range Interpretation Comments B/C Ratio (test code = B/C Ratio) 7 1 6-[address]12-06 18:44:00 Test Item Value Reference Range Interpretation Comments Total Protein (test code = Total 6.8 6.4-8.4 Protein) [address]12-06 18:44:00 Test Item Value Reference Range Interpretation Comments Albumin Lvl (test code = Albumin Lvl) 2.6 3.5-5.[address]12-06 18:44:00 Test Item Value Reference Range Interpretation Comments Globulin (test code = Globulin) 4.2 2.7-4.[address]12-06 18:44:00 Test Item Value Reference Range Interpretation Comments A/G Ratio (test code = A/G Ratio) 0.6 1 0.7-1.[address]12-06 18:44:00 Test Item Value Reference Range Interpretation Comments ALT (test code = ALT) no gt See_Comment [Auto mated message] The system which ge nerated this result transmit sally reference range : <=65. The reference range was not used to interpr et this result as henrry l/abnormal. [address]12-06 18:44:00 Test Item Value Reference Range Interpretation Comments AST (test code = AST) 10 See_Comment [Auto mated message] The system which ge nerated this result transmit sally reference range : <=37. The reference range was not used to interpr et this result as henrry l/abnormal. [place] 196222-12-06 18:44:00 Test Item Value Reference Range Interpretation Comments Alk Phos (test code = Alk Phos) 129 39-136 [place] 196222-12-06 18:44:00 Test Item Value Reference Range Interpretation Comments Bili Total (test code = Bili Total) 0.4 0.2-1.3 [place] 196222-12-06 18:44:00 Test Item Value Reference Range Interpretation Comments eGFR (test code = eGFR) 7 [place] 815532-12-06 18:44:00 Test Item Value Reference Range Interpretation Comments HS Troponin I Baseline (test code = HS 15 Troponin I Baseline) [place] 815532-12-06 18:44:00 Test Item Value Reference Range Interpretation Comments Total CK (test code = Total CK) 54 12-191 [place] [address]-12-06 18:44:00 Test Item Value Reference Range Interpretation Comments PT (test code = PT) 14.5 s 12.0-14.7 [place] [address]-12-06 18:44:00 Test Item Value Reference Range Interpretation Comments INR (test code = INR) 1.14 1 0.85-1.17 [place] [address]-12-06 18:44:00 Test Item Value Reference Range Interpretation Comments PTT (test code = PTT) 36.9 s 22.9-35.8 [place] [address]-12-06 18:44:00 Test Item Value Reference Range Interpretation Comments WBC (test code = WBC) 5.0 3.7-10.4 [place] [address]-12-06 18:44:00 Test Item Value Reference Range Interpretation Comments RBC (test code = RBC) 3.28 4.20-5.40 [place] [address]-12-06 18:44:00 Test Item Value Reference Range Interpretation Comments Hgb (test code = Hgb) 11.3 12.0-16.0 [place] [address]-12-06 18:44:00 Test Item Value Reference Range Interpretation Comments Hct (test code = Hct) 34.1 36.0-48.0 [place] 111102-12-06 18:44:00 Test Item Value Reference Range Interpretation Comments MCV (test code = MCV) 104.0 80.0-98.0 [place] 111102-12-06 18:44:00 Test Item Value Reference Range Interpretation Comments MCH (test code = MCH) 34.4 pg 27.0-31.0 [place] 111102-12-06 18:44:00 Test Item Value Reference Range Interpretation Comments MCHC (test code = MCHC) 33.1 32.0-36.0 [place] 111102-12-06 18:44:00 Test Item Value Reference Range Interpretation Comments RDW (test code = RDW) 17.9 11.5-14.5 [place] 111102-12-06 18:44:00 Test Item Value Reference Range Interpretation Comments Platelet (test code = Platelet) 302 133-450 [place] 111102-12-06 18:44:00 Test Item Value Reference Range Interpretation Comments MPV (test code = MPV) 8.1 7.4-10.4 [place] 111102-12-06 18:44:00 Test Item Value Reference Range Interpretation Comments PT (test code = PT) 14.5 s 12.0-14.7 [place] 111102-12-06 18:44:00 Test Item Value Reference Range Interpretation Comments INR (test code = INR) 1.14 1 0.85-1.17 [place] [address]-12-06 18:44:00 Test Item Value Reference Range Interpretation Comments PTT (test code = PTT) 36.9 s 22.9-35.8 [place] [address]-12-06 18:44:00 Test Item Value Reference Range Interpretation Comments Segs (test code = Segs) 57.6 45.0-75.0 [place] [address]-12-06 18:44:00 Test Item Value Reference Range Interpretation Comments Lymphocytes (test code = Lymphocytes) 33.5 20.0-40.0 [place] [address]-12-06 18:44:00 Test Item Value Reference Range Interpretation Comments Monocytes (test code = Monocytes) 6.3 2.0-12.0 [place] [address]-12-06 18:44:00 Test Item Value Reference Range Interpretation Comments Eosinophils (test code = 2.0 See_Comment [A utomated message] The Eosinophils) system which ge nerated this result tra nsmitted reference range : <=4.0. The reference r calli was not used to int erpret this result as normal/abnormal . [facility] HospitalIzbwkjqSIABUNWIBX0094-58-71 18:44:00 Test Item Value Reference Range Interpretation Comments Basophils (test code = 0.6 See_Comment [Aut omated message] The Basophils) system which ge nerated this result tra nsmitted reference range : <=1.0. The reference r calli was not used to int erpret this result as normal/abnormal . [facility] HospitalOwjqxdyKOGHDXEVDF6404-32-19 18:44:00 Test Item Value Reference Range Interpretation Comments Neutrophils # (test code = Neutrophils 2.9 1.5-8.1 #) [id number] 18:44:00 Test Item Value Reference Range Interpretation Comments Lymphocytes # (test code = Lymphocytes 1.7 1.0-5.5 #) [facility] HospitalCeedvznELYWXLHKTR4596-54-30 18:44:00 Test Item Value Reference Range Interpretation Comments Monocytes # (test code 0.3 See_Comment [Aut omated message] The = Monocytes #) system which generated this result tra nsmitted reference range : <=0.8. The reference r calli was not used to int erpret this result as normal/abnormal . [facility] HospitalKxrsvheBNXLNKWARC2279-98-80 18:44:00 Test Item Value Reference Range Interpretation Comments Eosinophils # (test code 0.1 See_Comment [A utomated message] The = Eosinophils #) system ic h generated this result tra nsmitted reference range : <=0.5. The reference r calli was not used to int erpret this result as normal/abnormal . [facility] CenterIzwarwnQAEFLKQFOW0073-61-04 18:44:00 Test Item Value Reference Range Interpretation Comments Coronavirus (COVID-19) Not Detected (02/28/22 CHERIE (test code = 12:44 PM) Coronavirus (COVID-19) CHERIE) [facility] CenterEjbfvczYQUKWUORAH3988-34-54 18:44:00 Test Item Value Reference Range Interpretation Comments Coronavirus (COVID-19) Not Detected (02/28/22 CHERIE (test code = 12:44 PM) Coronavirus (COVID-19) CHERIE) [facility]2022-12-06 18:44:00 Test Item Value Reference Range Interpretation Comments HS Troponin I Baseline (test code = HS 15 Troponin I Baseline) [facility] Lake[facility] Rabbit incCARDIAC [id number] 18:44:00 Test Item Value Reference Range Interpretation Comments Total CK (test code = Total CK) 54 12-191 [facility] Lake[facility] [id number] 18:44:00 Test Item Value Reference Range Interpretation Comments Glucose Lvl (test code = Glucose Lvl) 88 70-99 [facility] [id number] 18:44:00 Test Item Value Reference Range Interpretation Comments BUN (test code = BUN) 50 7-22 [facility] [id number] 18:44:00 Test Item Value Reference Range Interpretation Comments Creatinine Lvl (test code = Creatinine 6.77 0.50-1.40 Lvl) [facility] [id number] 18:44:00 Test Item Value Reference Range Interpretation Comments Sodium Lvl (test code = Sodium Lvl) 135 135-145 [facility] [id number] 18:44:00 Test Item Value Reference Range Interpretation Comments Potassium Lvl (test code = Potassium 4.3 3.5-5.1 Lvl) [facility] LakeGet10KLHOI8975-80-28 18:44:00 Test Item Value Reference Range Interpretation Comments Chloride Lvl (test code = Chloride Lvl) 98 95-109 [facility] [id number] 18:44:00 Test Item Value Reference Range Interpretation Comments CO2 (test code = CO2) 29 24-32 [facility] [id number] 18:44:00 Test Item Value Reference Range Interpretation Comments AGAP (test code = AGAP) 12.3 10.0-20.0 [facility] [id number] 18:44:00 Test Item Value Reference Range Interpretation Comments Calcium Lvl (test code = Calcium Lvl) 8.9 8.5-10.5 [facility] [id number] 18:44:00 Test Item Value Reference Range Interpretation Comments B/C Ratio (test code = B/C Ratio) 7 1 6-25 [facility] [id number] 18:44:00 Test Item Value Reference Range Interpretation Comments Total Protein (test code = Total 6.8 6.4-8.4 Protein) [address]12-06 18:44:00 Test Item Value Reference Range Interpretation Comments Albumin Lvl (test code = Albumin Lvl) 2.6 3.5-5.0 [place] [address]-12-06 18:44:00 Test Item Value Reference Range Interpretation Comments Globulin (test code = Globulin) 4.2 2.7-4.[address]12-06 18:44:00 Test Item Value Reference Range Interpretation Comments A/G Ratio (test code = A/G Ratio) 0.6 1 0.7-1.[address]12-06 18:44:00 Test Item Value Reference Range Interpretation Comments ALT (test code = ALT) no gt See_Comment [Auto mated message] The system which ge nerated this result transmit sally reference range : <=65. The reference range was not used to interpr et this result as henrry l/abnormal. [place] [address]-12-06 18:44:00 Test Item Value Reference Range Interpretation Comments AST (test code = AST) 10 See_Comment [Auto mated message] The system which ge nerated this result transmit sally reference range : <=37. The reference range was not used to interpr et this result as henrry l/abnormal. [place] 196222-12-06 18:44:00 Test Item Value Reference Range Interpretation Comments Alk Phos (test code = Alk Phos) 129 39-136 [place] 196222-12-06 18:44:00 Test Item Value Reference Range Interpretation Comments Bili Total (test code = Bili Total) 0.4 0.2-1.[address]12-06 18:44:00 Test Item Value Reference Range Interpretation Comments eGFR (test code = eGFR) 7 [place] [address]-12-06 18:44:00 Test Item Value Reference Range Interpretation Comments HS Troponin I Baseline (test code = HS 15 Troponin I Baseline) [address]12-06 18:44:00 Test Item Value Reference Range Interpretation Comments Total CK (test code = Total CK) 54 12-191 [place] 111102-12-06 18:44:00 Test Item Value Reference Range Interpretation Comments PT (test code = PT) 14.5 s 12.0-14.7 [place] 111102-12-06 18:44:00 Test Item Value Reference Range Interpretation Comments INR (test code = INR) 1.14 1 0.85-1.17 [place] 111102-12-06 18:44:00 Test Item Value Reference Range Interpretation Comments PTT (test code = PTT) 36.9 s 22.9-35.8 [place] [address]-12-06 18:44:00 Test Item Value Reference Range Interpretation Comments WBC (test code = WBC) 5.0 3.7-10.4 [place] [address]-12-06 18:44:00 Test Item Value Reference Range Interpretation Comments RBC (test code = RBC) 3.28 4.20-5.40 [place] [address]-12-06 18:44:00 Test Item Value Reference Range Interpretation Comments Hgb (test code = Hgb) 11.3 12.0-16.0 [place] [address]-12-06 18:44:00 Test Item Value Reference Range Interpretation Comments Hct (test code = Hct) 34.1 36.0-48.0 [place] 111102-12-06 18:44:00 Test Item Value Reference Range Interpretation Comments MCV (test code = MCV) 104.0 80.0-98.0 [place] 111102-12-06 18:44:00 Test Item Value Reference Range Interpretation Comments MCH (test code = MCH) 34.4 pg 27.0-31.0 [place] 111102-12-06 18:44:00 Test Item Value Reference Range Interpretation Comments MCHC (test code = MCHC) 33.1 32.0-36.0 [place] [address]-12-06 18:44:00 Test Item Value Reference Range Interpretation Comments RDW (test code = RDW) 17.9 11.5-14.5 [place] [address]-12-06 18:44:00 Test Item Value Reference Range Interpretation Comments Platelet (test code = Platelet) 302 133-450 [place] 111102-12-06 18:44:00 Test Item Value Reference Range Interpretation Comments MPV (test code = MPV) 8.1 7.4-10.4 [place] [address]-12-06 18:44:00 Test Item Value Reference Range Interpretation Comments PT (test code = PT) 14.5 s 12.0-14.7 [place] [address]-12-06 18:44:00 Test Item Value Reference Range Interpretation Comments INR (test code = INR) 1.14 1 0.85-1.17 [place] [address]-12-06 18:44:00 Test Item Value Reference Range Interpretation Comments PTT (test code = PTT) 36.9 s 22.9-35.8 [place] [address]-12-06 18:44:00 Test Item Value Reference Range Interpretation Comments Segs (test code = Segs) 57.6 45.0-75.0 [place] [address]-12-06 18:44:00 Test Item Value Reference Range Interpretation Comments Lymphocytes (test code = Lymphocytes) 33.5 20.0-40.0 [place] [address]-12-06 18:44:00 Test Item Value Reference Range Interpretation Comments Monocytes (test code = Monocytes) 6.3 2.0-12.0 [place] [address]-12-06 18:44:00 Test Item Value Reference Range Interpretation Comments Eosinophils (test code = 2.0 See_Comment [A utomated message] The Eosinophils) system which ge nerated this result tra nsmitted reference range : <=4.0. The reference r calli was not used to int erpret this result as normal/abnormal . [place] 111102-12-06 18:44:00 Test Item Value Reference Range Interpretation Comments Basophils (test code = 0.6 See_Comment [Aut omated message] The Basophils) system which ge nerated this result tra nsmitted reference range : <=1.0. The reference r calli was not used to int erpret this result as normal/abnormal . [place] 111102-12-06 18:44:00 Test Item Value Reference Range Interpretation Comments Neutrophils # (test code = Neutrophils 2.9 1.5-8.1 #) [place] 111102-12-06 18:44:00 Test Item Value Reference Range Interpretation Comments Lymphocytes # (test code = Lymphocytes 1.7 1.0-5.5 #) [place] 111102-12-06 18:44:00 Test Item Value Reference Range Interpretation Comments Monocytes # (test code 0.3 See_Comment [Aut omated message] The = Monocytes #) system which generated this result tra nsmitted reference range : <=0.8. The reference r calli was not used to int erpret this result as normal/abnormal . [id number] 18:44:00 Test Item Value Reference Range Interpretation Comments Eosinophils # (test code 0.1 See_Comment [A utomated message] The = Eosinophils #) system whic h generated this result tra nsmitted reference range : <=0.5. The reference r calli was not used to int erpret this result as normal/abnormal . [facility]landKbqzhzxOBWWVYDSVG6867-97-70 18:44:00 Test Item Value Reference Range Interpretation Comments Coronavirus (COVID-19) Not Detected (02/28/22 CHERIE (test code = 12:44 PM) Coronavirus (COVID-19) CHERIE) [facility] LakeLnssaikVFNSJJOLZC3448-69-74 18:44:00 Test Item Value Reference Range Interpretation Comments Coronavirus (COVID-19) Not Detected (02/28/22 CHERIE (test code = 12:44 PM) Coronavirus (COVID-19) CHERIE) [facility] LakeFantom [id number] 18:44:00 Test Item Value Reference Range Interpretation Comments HS Troponin I Baseline (test code = HS 15 Troponin I Baseline) [facility] LakeFantom [id number] 18:44:00 Test Item Value Reference Range Interpretation Comments Total CK (test code = Total CK) 54 12-191 [facility] [id number] 18:44:00 Test Item Value Reference Range Interpretation Comments Glucose Lvl (test code = Glucose Lvl) 88 70-99 [facility] [id number] 18:44:00 Test Item Value Reference Range Interpretation Comments BUN (test code = BUN) 50 7-22 [facility] [id number] 18:44:00 Test Item Value Reference Range Interpretation Comments Creatinine Lvl (test code = Creatinine 6.77 0.50-1.40 Lvl) [facility] [id number] 18:44:00 Test Item Value Reference Range Interpretation Comments Sodium Lvl (test code = Sodium Lvl) 135 135-[address] [facility]2022-12-06 18:44:00 Test Item Value Reference Range Interpretation Comments Potassium Lvl (test code = Potassium 4.3 3.5-5.1 Lvl) [facility]2022-12-06 18:44:00 Test Item Value Reference Range Interpretation Comments Chloride Lvl (test code = Chloride Lvl) 98 95-109 [place] 196222-12-06 18:44:00 Test Item Value Reference Range Interpretation Comments CO2 (test code = CO2) 29 24-32 [place] 196222-12-06 18:44:00 Test Item Value Reference Range Interpretation Comments AGAP (test code = AGAP) 12.3 10.0-20.0 [place] 196222-12-06 18:44:00 Test Item Value Reference Range Interpretation Comments Calcium Lvl (test code = Calcium Lvl) 8.9 8.5-10.5 [place] 196222-12-06 18:44:00 Test Item Value Reference Range Interpretation Comments B/C Ratio (test code = B/C Ratio) 7 1 6-25 [place] 196222-12-06 18:44:00 Test Item Value Reference Range Interpretation Comments Total Protein (test code = Total 6.8 6.4-8.4 Protein) [place] 196222-12-06 18:44:00 Test Item Value Reference Range Interpretation Comments Albumin Lvl (test code = Albumin Lvl) 2.6 3.5-5.0 [place] 196222-12-06 18:44:00 Test Item Value Reference Range Interpretation Comments Globulin (test code = Globulin) 4.2 2.7-4.2 [place] 196222-12-06 18:44:00 Test Item Value Reference Range Interpretation Comments A/G Ratio (test code = A/G Ratio) 0.6 1 0.7-1.6 [place] 196222-12-06 18:44:00 Test Item Value Reference Range Interpretation Comments ALT (test code = ALT) no gt See_Comment [Auto mated message] The system which ge nerated this result transmit sally reference range : <=65. The reference range was not used to interpr et this result as henrry l/abnormal. [place] 196222-12-06 18:44:00 Test Item Value Reference Range Interpretation Comments AST (test code = AST) 10 See_Comment [Auto mated message] The system which ge nerated this result transmit sally reference range : <=37. The reference range was not used to interpr et this result as henrry l/abnormal. [place] 196222-12-06 18:44:00 Test Item Value Reference Range Interpretation Comments Alk Phos (test code = Alk Phos) 129 39-136 [place] 196222-12-06 18:44:00 Test Item Value Reference Range Interpretation Comments Bili Total (test code = Bili Total) 0.4 0.2-1.3 [place] 196222-12-06 18:44:00 Test Item Value Reference Range Interpretation Comments eGFR (test code = eGFR) 7 [place] 815532-12-06 18:44:00 Test Item Value Reference Range Interpretation Comments HS Troponin I Baseline (test code = HS 15 Troponin I Baseline) [place] 815532-12-06 18:44:00 Test Item Value Reference Range Interpretation Comments Total CK (test code = Total CK) 54 12-191 [place] [address]-12-06 18:44:00 Test Item Value Reference Range Interpretation Comments PT (test code = PT) 14.5 s 12.0-14.7 [place] 111102-12-06 18:44:00 Test Item Value Reference Range Interpretation Comments INR (test code = INR) 1.14 1 0.85-1.17 [place] 111102-12-06 18:44:00 Test Item Value Reference Range Interpretation Comments PTT (test code = PTT) 36.9 s 22.9-35.8 [place] [address]-12-06 18:44:00 Test Item Value Reference Range Interpretation Comments WBC (test code = WBC) 5.0 3.7-10.4 [place] [address]-12-06 18:44:00 Test Item Value Reference Range Interpretation Comments RBC (test code = RBC) 3.28 4.20-5.40 [place] [address]-12-06 18:44:00 Test Item Value Reference Range Interpretation Comments Hgb (test code = Hgb) 11.3 12.0-16.0 [place] [address]-12-06 18:44:00 Test Item Value Reference Range Interpretation Comments Hct (test code = Hct) 34.1 36.0-48.0 [place] 111102-12-06 18:44:00 Test Item Value Reference Range Interpretation Comments MCV (test code = MCV) 104.0 80.0-98.0 [place] 111102-12-06 18:44:00 Test Item Value Reference Range Interpretation Comments MCH (test code = MCH) 34.4 pg 27.0-31.0 [place] [address]-12-06 18:44:00 Test Item Value Reference Range Interpretation Comments MCHC (test code = MCHC) 33.1 32.0-36.0 [place] 111102-12-06 18:44:00 Test Item Value Reference Range Interpretation Comments RDW (test code = RDW) 17.9 11.5-14.5 [place] 111102-12-06 18:44:00 Test Item Value Reference Range Interpretation Comments Platelet (test code = Platelet) 302 133-450 [place] 111102-12-06 18:44:00 Test Item Value Reference Range Interpretation Comments MPV (test code = MPV) 8.1 7.4-10.4 [place] [address]-12-06 18:44:00 Test Item Value Reference Range Interpretation Comments PT (test code = PT) 14.5 s 12.0-14.7 [place] [address]-12-06 18:44:00 Test Item Value Reference Range Interpretation Comments INR (test code = INR) 1.14 1 0.85-1.17 [place] [address]-12-06 18:44:00 Test Item Value Reference Range Interpretation Comments PTT (test code = PTT) 36.9 s 22.9-35.8 [place] [address]-12-06 18:44:00 Test Item Value Reference Range Interpretation Comments Segs (test code = Segs) 57.6 45.0-75.0 [place] [address]-12-06 18:44:00 Test Item Value Reference Range Interpretation Comments Lymphocytes (test code = Lymphocytes) 33.5 20.0-40.0 [place] [address]-12-06 18:44:00 Test Item Value Reference Range Interpretation Comments Monocytes (test code = Monocytes) 6.3 2.0-12.0 [place] 111102-12-06 18:44:00 Test Item Value Reference Range Interpretation Comments Eosinophils (test code = 2.0 See_Comment [A utomated message] The Eosinophils) system which ge nerated this result tra nsmitted reference range : <=4.0. The reference r calli was not used to int erpret this result as normal/abnormal . [place] 111102-12-06 18:44:00 Test Item Value Reference Range Interpretation Comments Basophils (test code = 0.6 See_Comment [Aut omated message] The Basophils) system which ge nerated this result tra nsmitted reference range : <=1.0. The reference r calli was not used to int erpret this result as normal/abnormal . [place] 111102-12-06 18:44:00 Test Item Value Reference Range Interpretation Comments Neutrophils # (test code = Neutrophils 2.9 1.5-8.1 #) [place] 111102-12-06 18:44:00 Test Item Value Reference Range Interpretation Comments Lymphocytes # (test code = Lymphocytes 1.7 1.0-5.5 #) [place] 111102-12-06 18:44:00 Test Item Value Reference Range Interpretation Comments Monocytes # (test code 0.3 See_Comment [Aut omated message] The = Monocytes #) system which generated this result tra nsmitted reference range : <=0.8. The reference r calli was not used to int erpret this result as normal/abnormal . [place] 111102-12-06 18:44:00 Test Item Value Reference Range Interpretation Comments Eosinophils # (test code 0.1 See_Comment [A utomated message] The = Eosinophils #) system whic h generated this result tra nsmitted reference range : <=0.5. The reference r calli was not used to int erpret this result as normal/abnormal . [place] 966362-12-06 18:44:00 Test Item Value Reference Range Interpretation Comments Coronavirus (COVID-19) Not Detected (02/28/22 CHERIE (test code = 12:44 PM) Coronavirus (COVID-19) CHERIE) [facility]landFrolddcWXGJITWPOS3635-93-12 18:44:00 Test Item Value Reference Range Interpretation Comments Coronavirus (COVID-19) Not Detected (02/28/22 CHERIE (test code = 12:44 PM) Coronavirus (COVID-19) CHERIE) [facility]landCARBeamExpressAC [id number] 18:44:00 Test Item Value Reference Range Interpretation Comments HS Troponin I Baseline (test code = HS 15 Troponin I Baseline) [facility]landCARBeamExpressAC [id number] 18:44:00 Test Item Value Reference Range Interpretation Comments Total CK (test code = Total CK) 54 12-191 [facility] Lake[facility] [id number] 18:44:00 Test Item Value Reference Range Interpretation Comments Glucose Lvl (test code = Glucose Lvl) 88 70-99 [facility] Lake[facility] [id number] 18:44:00 Test Item Value Reference Range Interpretation Comments BUN (test code = BUN) 50 7-22 [facility] LakeC[facility] [id number] 18:44:00 Test Item Value Reference Range Interpretation Comments Creatinine Lvl (test code = Creatinine 6.77 0.50-1.40 Lvl) [facility] LakeC[facility] [id number] 18:44:00 Test Item Value Reference Range Interpretation Comments Sodium Lvl (test code = Sodium Lvl) 135 135-145 [facility] Lake[facility] [id number] 18:44:00 Test Item Value Reference Range Interpretation Comments Potassium Lvl (test code = Potassium 4.3 3.5-5.1 Lvl) [facility] Lake[facility] [id number] 18:44:00 Test Item Value Reference Range Interpretation Comments Chloride Lvl (test code = Chloride Lvl) 98 95-109 [facility] Lake[facility] [id number] 18:44:00 Test Item Value Reference Range Interpretation Comments CO2 (test code = CO2) 29 24-32 [facility] Lake[facility] [id number] 18:44:00 Test Item Value Reference Range Interpretation Comments AGAP (test code = AGAP) 12.3 10.0-20.0 [facility] [id number] 18:44:00 Test Item Value Reference Range Interpretation Comments Calcium Lvl (test code = Calcium Lvl) 8.9 8.5-10.5 [facility] [place] 794702-12-06 18:44:00 Test Item Value Reference Range Interpretation Comments B/C Ratio (test code = B/C Ratio) 7 1 6-25 [place] [address]-12-06 18:44:00 Test Item Value Reference Range Interpretation Comments Total Protein (test code = Total 6.8 6.4-8.4 Protein) [place] [address]-12-06 18:44:00 Test Item Value Reference Range Interpretation Comments Albumin Lvl (test code = Albumin Lvl) 2.6 3.5-5.[address]12-06 18:44:00 Test Item Value Reference Range Interpretation Comments Globulin (test code = Globulin) 4.2 2.7-4.2 [place] [address]-12-06 18:44:00 Test Item Value Reference Range Interpretation Comments A/G Ratio (test code = A/G Ratio) 0.6 1 0.7-1.6 [address]12-06 18:44:00 Test Item Value Reference Range Interpretation Comments ALT (test code = ALT) no gt See_Comment [Auto mated message] The system which ge nerated this result transmit sally reference range : <=65. The reference range was not used to interpr et this result as henrry l/abnormal. [place] 196222-12-06 18:44:00 Test Item Value Reference Range Interpretation Comments AST (test code = AST) 10 See_Comment [Auto mated message] The system which ge nerated this result transmit sally reference range : <=37. The reference range was not used to interpr et this result as henrry l/abnormal. [facility]landAuthernative [id number] 18:44:00 Test Item Value Reference Range Interpretation Comments Alk Phos (test code = Alk Phos) 129 39-136 [facility]landAuthernative [id number] 18:44:00 Test Item Value Reference Range Interpretation Comments Bili Total (test code = Bili Total) 0.4 0.2-1.[address]12-06 18:44:00 Test Item Value Reference Range Interpretation Comments eGFR (test code = eGFR) 7 [place] 815532-12-06 18:44:00 Test Item Value Reference Range Interpretation Comments HS Troponin I Baseline (test code = HS 15 Troponin I Baseline) [facility]EPLL5938[facility] 18:44:00 Test Item Value Reference Range Interpretation Comments Total CK (test code = Total CK) 54 12-191 [place] 111102-12-06 18:44:00 Test Item Value Reference Range Interpretation Comments PT (test code = PT) 14.5 s 12.0-14.7 [place] 111102-12-06 18:44:00 Test Item Value Reference Range Interpretation Comments INR (test code = INR) 1.14 1 0.85-1.17 [place] 111102-12-06 18:44:00 Test Item Value Reference Range Interpretation Comments PTT (test code = PTT) 36.9 s 22.9-35.8 [place] [address]-12-06 18:44:00 Test Item Value Reference Range Interpretation Comments WBC (test code = WBC) 5.0 3.7-10.4 [place] 111102-12-06 18:44:00 Test Item Value Reference Range Interpretation Comments RBC (test code = RBC) 3.28 4.20-5.40 [place] 111102-12-06 18:44:00 Test Item Value Reference Range Interpretation Comments Hgb (test code = Hgb) 11.3 12.0-16.0 [place] 111102-12-06 18:44:00 Test Item Value Reference Range Interpretation Comments Hct (test code = Hct) 34.1 36.0-48.0 [facility]OvulhogYERPLBMYKW9581-58-03 18:44:00 Test Item Value Reference Range Interpretation Comments MCV (test code = MCV) 104.0 80.0-98.0 [place] 111102-12-06 18:44:00 Test Item Value Reference Range Interpretation Comments MCH (test code = MCH) 34.4 pg 27.0-31.0 [place] 111102-12-06 18:44:00 Test Item Value Reference Range Interpretation Comments MCHC (test code = MCHC) 33.1 32.0-36.0 [place] 111102-12-06 18:44:00 Test Item Value Reference Range Interpretation Comments RDW (test code = RDW) 17.9 11.5-14.[address]12-06 18:44:00 Test Item Value Reference Range Interpretation Comments Platelet (test code = Platelet) 302 133-450 [place] 111102-12-06 18:44:00 Test Item Value Reference Range Interpretation Comments MPV (test code = MPV) 8.1 7.4-10.4 [place] [address]-12-06 18:44:00 Test Item Value Reference Range Interpretation Comments PT (test code = PT) 14.5 s 12.0-14.7 [place] [address]-12-06 18:44:00 Test Item Value Reference Range Interpretation Comments INR (test code = INR) 1.14 1 0.85-1.17 [place] [address]-12-06 18:44:00 Test Item Value Reference Range Interpretation Comments PTT (test code = PTT) 36.9 s 22.9-35.8 [place] [address]-12-06 18:44:00 Test Item Value Reference Range Interpretation Comments Segs (test code = Segs) 57.6 45.0-75.0 [place] [address]-12-06 18:44:00 Test Item Value Reference Range Interpretation Comments Lymphocytes (test code = Lymphocytes) 33.5 20.0-40.0 [place] [address]-12-06 18:44:00 Test Item Value Reference Range Interpretation Comments Monocytes (test code = Monocytes) 6.3 2.0-12.0 [place] [address]-12-06 18:44:00 Test Item Value Reference Range Interpretation Comments Eosinophils (test code = 2.0 See_Comment [A utomated message] The Eosinophils) system which ge nerated this result tra nsmitted reference range : <=4.0. The reference r calli was not used to int erpret this result as normal/abnormal . [place] [address]-12-06 18:44:00 Test Item Value Reference Range Interpretation Comments Basophils (test code = 0.6 See_Comment [Aut omated message] The Basophils) system which ge nerated this result tra nsmitted reference range : <=1.0. The reference r calli was not used to int erpret this result as normal/abnormal . [place] [address]-12-06 18:44:00 Test Item Value Reference Range Interpretation Comments Neutrophils # (test code = Neutrophils 2.9 1.5-8.1 #) [facility] 18:44:00 Test Item Value Reference Range Interpretation Comments Lymphocytes # (test code = Lymphocytes 1.7 1.0-5.5 #) [place] 111102-12-06 18:44:00 Test Item Value Reference Range Interpretation Comments Monocytes # (test code 0.3 See_Comment [Aut omated message] The = Monocytes #) system which generated this result tra nsmitted reference range : <=0.8. The reference r calli was not used to int erpret this result as normal/abnormal . [facility]ImgirvqSFKSMZJENP8448-83-44 18:44:00 Test Item Value Reference Range Interpretation Comments Eosinophils # (test code 0.1 See_Comment [A utomated message] The = Eosinophils #) system whic h generated this result tra nsmitted reference range : <=0.5. The reference r calli was not used to int erpret this result as normal/abnormal . [facility]xhwvflLUZDWLQQIN2000-[facility]-56 18:44:00 Test Item Value Reference Range Interpretation Comments Coronavirus (COVID-19) Not Detected (02/28/22 CHERIE (test code = 12:44 PM) Coronavirus (COVID-19) CHERIE) [facility]landSrovurcOEHQGLFVFA5676-48-68 18:44:00 Test Item Value Reference Range Interpretation Comments Coronavirus (COVID-19) Not Detected (02/28/22 CHERIE (test code = 12:44 PM) Coronavirus (COVID-19) CHERIE) [facility]landSavvySyncVOXIMIN2663-17-95 18:44:00 Test Item Value Reference Range Interpretation Comments HS Troponin I Baseline (test code = HS 15 Troponin I Baseline) [facility]landFashism [id number] 18:44:00 Test Item Value Reference Range Interpretation Comments Total CK (test code = Total CK) 54 12-191 [facility] [id number] 18:44:00 Test Item Value Reference Range Interpretation Comments Glucose Lvl (test code = Glucose Lvl) 88 70-99 [facility] [id number] 18:44:00 Test Item Value Reference Range Interpretation Comments BUN (test code = BUN) 50 7-22 [place] 196222-12-06 18:44:00 Test Item Value Reference Range Interpretation Comments Creatinine Lvl (test code = Creatinine 6.77 0.50-1.40 Lvl) [place] 196222-12-06 18:44:00 Test Item Value Reference Range Interpretation Comments Sodium Lvl (test code = Sodium Lvl) 135 135-145 [place] 196222-12-06 18:44:00 Test Item Value Reference Range Interpretation Comments Potassium Lvl (test code = Potassium 4.3 3.5-5.1 Lvl) [place] 196222-12-06 18:44:00 Test Item Value Reference Range Interpretation Comments Chloride Lvl (test code = Chloride Lvl) 98 95-109 [place] 196222-12-06 18:44:00 Test Item Value Reference Range Interpretation Comments CO2 (test code = CO2) 29 24-32 [place] 196222-12-06 18:44:00 Test Item Value Reference Range Interpretation Comments AGAP (test code = AGAP) 12.3 10.0-20.0 [place] 196222-12-06 18:44:00 Test Item Value Reference Range Interpretation Comments Calcium Lvl (test code = Calcium Lvl) 8.9 8.5-10.5 [place] 196222-12-06 18:44:00 Test Item Value Reference Range Interpretation Comments B/C Ratio (test code = B/C Ratio) 7 1 6-25 [place] 196222-12-06 18:44:00 Test Item Value Reference Range Interpretation Comments Total Protein (test code = Total 6.8 6.4-8.4 Protein) [place] 196222-12-06 18:44:00 Test Item Value Reference Range Interpretation Comments Albumin Lvl (test code = Albumin Lvl) 2.6 3.5-5.0 [place] 196222-12-06 18:44:00 Test Item Value Reference Range Interpretation Comments Globulin (test code = Globulin) 4.2 2.7-4.2 [place] 196222-12-06 18:44:00 Test Item Value Reference Range Interpretation Comments A/G Ratio (test code = A/G Ratio) 0.6 1 0.7-1.6 [place] 196222-12-06 18:44:00 Test Item Value Reference Range Interpretation Comments ALT (test code = ALT) no gt See_Comment [Auto mated message] The system which ge nerated this result transmit sally reference range : <=65. The reference range was not used to interpr et this result as henrry l/abnormal. [facility] [id number] 18:44:00 Test Item Value Reference Range Interpretation Comments AST (test code = AST) 10 See_Comment [Auto mated message] The system which ge nerated this result transmit sally reference range : <=37. The reference range was not used to interpr et this result as henrry l/abnormal. [facility] Lake[facility] [id number] 18:44:00 Test Item Value Reference Range Interpretation Comments Alk Phos (test code = Alk Phos) 129 39-136 [facility] [id number] 18:44:00 Test Item Value Reference Range Interpretation Comments Bili Total (test code = Bili Total) 0.4 0.2-1.3 [facility] [id number] 18:44:00 Test Item Value Reference Range Interpretation Comments eGFR (test code = eGFR) 7 [place] [address]-12-06 18:44:00 Test Item Value Reference Range Interpretation Comments HS Troponin I Baseline (test code = HS 15 Troponin I Baseline) [place] [address]-12-06 18:44:00 Test Item Value Reference Range Interpretation Comments Total CK (test code = Total CK) 54 12-191 [facility]landMfgvxmnVMMBNXNKDF7981-40-08 18:44:00 Test Item Value Reference Range Interpretation Comments PT (test code = PT) 14.5 s 12.0-14.7 [facility]landYhwzyndYNMMZJGLOS4643-52-64 18:44:00 Test Item Value Reference Range Interpretation Comments INR (test code = INR) 1.14 1 0.85-1.17 [facility] LakeOqlricfVBHDXCGUJR6531-09-49 18:44:00 Test Item Value Reference Range Interpretation Comments PTT (test code = PTT) 36.9 s 22.9-35.8 [facility] LakeUekmzuhIUTNRRHVLV8618-85-81 18:44:00 Test Item Value Reference Range Interpretation Comments WBC (test code = WBC) 5.0 3.7-10.4 [facility]uqjjyAHQCZDHSLU8900-00-99 18:44:00 Test Item Value Reference Range Interpretation Comments RBC (test code = RBC) 3.28 4.20-5.40 [place] [address]-12-06 18:44:00 Test Item Value Reference Range Interpretation Comments Hgb (test code = Hgb) 11.3 12.0-16.0 [place] [address]-12-06 18:44:00 Test Item Value Reference Range Interpretation Comments Hct (test code = Hct) 34.1 36.0-48.0 [place] [address]-12-06 18:44:00 Test Item Value Reference Range Interpretation Comments MCV (test code = MCV) 104.0 80.0-98.0 [place] [address]-12-06 18:44:00 Test Item Value Reference Range Interpretation Comments MCH (test code = MCH) 34.4 pg 27.0-31.0 [place] [address]-12-06 18:44:00 Test Item Value Reference Range Interpretation Comments MCHC (test code = MCHC) 33.1 32.0-36.0 [place] [address]-12-06 18:44:00 Test Item Value Reference Range Interpretation Comments RDW (test code = RDW) 17.9 11.5-14.5 [place] [address]-12-06 18:44:00 Test Item Value Reference Range Interpretation Comments Platelet (test code = Platelet) 302 133-450 [place] [address]-12-06 18:44:00 Test Item Value Reference Range Interpretation Comments MPV (test code = MPV) 8.1 7.4-10.4 [place] [address]-12-06 18:44:00 Test Item Value Reference Range Interpretation Comments PT (test code = PT) 14.5 s 12.0-14.7 [place] [address]-12-06 18:44:00 Test Item Value Reference Range Interpretation Comments INR (test code = INR) 1.14 1 0.85-1.17 [place] [address]-12-06 18:44:00 Test Item Value Reference Range Interpretation Comments PTT (test code = PTT) 36.9 s 22.9-35.8 [place] [address]-12-06 18:44:00 Test Item Value Reference Range Interpretation Comments Segs (test code = Segs) 57.6 45.0-75.0 [place] [address]-12-06 18:44:00 Test Item Value Reference Range Interpretation Comments Lymphocytes (test code = Lymphocytes) 33.5 20.0-40.0 [place] [address]-12-06 18:44:00 Test Item Value Reference Range Interpretation Comments Monocytes (test code = Monocytes) 6.3 2.0-12.0 [place] [address]-12-06 18:44:00 Test Item Value Reference Range Interpretation Comments Eosinophils (test code = 2.0 See_Comment [A utomated message] The Eosinophils) system which ge nerated this result tra nsmitted reference range : <=4.0. The reference r calli was not used to int erpret this result as normal/abnormal . [address]12-06 18:44:00 Test Item Value Reference Range Interpretation Comments Basophils (test code = 0.6 See_Comment [Aut omated message] The Basophils) system which ge nerated this result tra nsmitted reference range : <=1.0. The reference r calli was not used to int erpret this result as normal/abnormal . [place] [address]-12-06 18:44:00 Test Item Value Reference Range Interpretation Comments Neutrophils # (test code = Neutrophils 2.9 1.5-8.1 #) [address]12-06 18:44:00 Test Item Value Reference Range Interpretation Comments Lymphocytes # (test code = Lymphocytes 1.7 1.0-5.5 #) [address]12-06 18:44:00 Test Item Value Reference Range Interpretation Comments Monocytes # (test code 0.3 See_Comment [Aut omated message] The = Monocytes #) system which generated this result tra nsmitted reference range : <=0.8. The reference r calli was not used to int erpret this result as normal/abnormal . [place] [address]-12-06 18:44:00 Test Item Value Reference Range Interpretation Comments Eosinophils # (test code 0.1 See_Comment [A utomated message] The = Eosinophils #) system wh h generated this result tra nsmitted reference range : <=0.5. The reference r calli was not used to int erpret this result as normal/abnormal . [facility]XyvwkilUSMWFPWUPA4252-74-24 18:44:00 Test Item Value Reference Range Interpretation Comments Coronavirus (COVID-19) Not Detected (02/28/22 CHERIE (test code = 12:44 PM) Coronavirus (COVID-19) CHERIE) [facility] CenterVwswougJAAFXHWODG3217-52-66 18:44:00 Test Item Value Reference Range Interpretation Comments Coronavirus (COVID-19) Not Detected (02/28/22 CHERIE (test code = 12:44 PM) Coronavirus (COVID-19) CHERIE) [facility] [id number] 09:57:05 Test Item Value Reference Range Interpretation Comments SCAN RESULT (test code = See scanned report [id number]) See scanned reportPOC-Glucose gozjw8681-17-01 12:00:16 Test Item Value Reference Range Interpretation Comments POC-Glucose Meter (test 146 mg/dL 70-110 H : TE STED AT [facility] code = 1538) [address] [place] [address], 770 30: Medical Numerical Control Operator/Techni daniel ID = [id number] for TEZENO, BANDAR Lab Interpretation (test Abnormal code = 74408-8) [facility] zudbt9639-31-92 12:00:16 Test Item Value Reference Range Interpretation Comments POC-Glucose Meter (test 146 mg/dL 70-110 H : TE STED AT [facility] code = 1538) [address] [place] [address], 770 30: Medical Numerical Control Operator/Techni daniel ID = [id number] for TEZENO, BANDAR Lab Interpretation (test Abnormal code = 14450-4) [facility] Center[facility]Glucose [id number] 12:00:16 Test Item Value Reference Range Interpretation Comments POC-Glucose Meter (test 146 mg/dL 70-110 H : TE STED AT [facility] code = 1538) [address] [place] [address], 770 30: Medical Numerical Control Operator/Techni daniel ID = [id number] for TEZENO, BANDAR Lab Interpretation (test Abnormal code = 97713-0) [facility] CenterPOCT-GLUCOSE [id number] 12:00:16 Test Item Value Reference Range Interpretation Comments POC-GLUCOSE METER 146 mg/dL 70-110 H : TESTED A T [facility] 6720 (BEAKER) (test code = [facility], 1538) [address]: Medical Numerical Control Operator/Techni daniel ID = [id number] for BANDAR SUAZO BASIC METABOLIC [id number] 07:05:24 Test Item Value Reference Range Interpretation [...] S NOT APPLICABLE FOR DIALYSIS PATIEN TS. Medical Numerical Control Operator ID - BANDAR MPOCT-GLUCOSE [id number] 00:56:00 Test Item Value Reference Range Interpretation Comments POC-GLUCOSE METER 98 mg/dL 70-110 : TESTED A T [facility] 6720 (BEAKER) (test code = [facility], 1538) [address]: Medical Numerical Control Operator/Techni daniel ID = [id number] for SOLEDADE N (V), PAMELAR POCT-GLUCOSE [id number] 17:09:29 Test Item Value Reference Range Interpretation Comments POC-GLUCOSE METER 110 mg/dL 70-110 : TESTED A T [facility] 6720 (BEAKER) (test code [facility], = 1538) [address]: Medical Numerical Control Operator/Techni daniel ID = [id number] for LAUREN Lester SARS-CoV2/RT-PCR (Asymptomatic ONLY)2021-09-23 15:25:18 Test Item Value Reference Range Interpretation Comments SARS-COV2/RT-PCR (test Positive Not Detected, AA code = 45094-7) Negative, See external report for linked test SARS-COV-2 PERFORMING [facility] (test code = 14317-0) CECELIA (test code = CECELIA) Results are [...] of the Act. Fact Sheet for Healthcare Providers:https://www.[employer]/sites/default /files/product/document s/Fact_Sheet_HC_Provide yp_Hsin_YCZU-EwR-7.pdf Fact Sheet for Healthcare Patients:https://www.[employer]/sites/default/ files/product/documents /Fact_Sheet_Patients_Ly bb_JKNE-OpS-8.pdf Performing Laboratory:[facility] [place] [address] Lab Interpretation Abnormal (test code = 06298-6) [facility]2021-09-23 15:25:18 Test Item Value Reference Range Interpretation Comments SARS-COV2/RT-PCR (test Positive Not Detected, AA code = 93904-6) Negative, See external report for linked test SARS-COV-2 PERFORMING [facility] (test code = 44558-2) CECELIA (test code = CECELIA) Results are [...] of the Act. Fact Sheet for Healthcare Providers:https://www.[employer]/sites/default /files/product/document s/Fact_Sheet_HC_Provide il_Mvls_SGYS-NjQ-6.pdf Fact Sheet for Healthcare Patients:https://www.[employer]/sites/default/ files/product/documents /Fact_Sheet_Patients_Ly dt_RSBU-BjS-0.pdf Performing Laboratory:[place] [address] [place] [address] Lab Interpretation Abnormal (test code = 09214-4) [facility]As[facility]omatic ONLY)2021-09-23 15:25:18 Test Item Value Reference Range Interpretation Comments SARS-COV2/RT-PCR (test Positive Not Detected, AA code = 72412-6) Negative, See external report for linked test SARS-COV-2 PERFORMING [facility] (test code = 15474-3) CECELIA (test code = CECELIA) Results are [...] of the Act. Fact Sheet for Healthcare Providers:https://www.[employer]/sites/default /files/product/document s/Fact_Sheet_HC_Provide cx_Lzzn_HYWY-TmK-0.pdf Fact Sheet for Healthcare Patients:https://www.[employer]/sites/default/ files/product/documents /Fact_Sheet_Patients_Ly fe_ZTIC-VgX-0.pdf Performing Laboratory:[facility] [place] [address] Lab Interpretation Abnormal (test code = 53339-4) [facility] ([facility])2021-09-23 15:25:18 Test Item Value Reference Range Interpretation Comments SARS-COV2/RT-PCR (test Positive Not Detected, Negative, AA code = 7074880) See external report for linked test SARS-COV-2 PERFORMING LAB [facility] (test code = 8639509) Results are for the detection of SARS-CoV-2 [...] 564(g) of the Act.Fact Sheet for Healthcare Providers:https://www.[employer]/sites/default/files/product/documen ts/Skak_Cxjzk_CE_Joumpawbz_Hmum_QUPB-AoN-9.pdfFact Sheet for Healthcare Patients:https://www.[employer]/sites/default/files/product/documents/Khep_Vakzq_Yjuxqmov_Bcsp_WSZX-DjR-3.pdf Performing Laboratory:[facility], [place] [address]JBNI-OBLDTXC [id number] 08:15:54 Test Item Value Reference Range Interpretation Comments POC-GLUCOSE METER 89 mg/dL 70-110 : TESTED A T [facility] 6720 (BEAKER) (test code = ANIL Brown [facility], 1538) [address]: Medical Numerical Control Operator/Techni daniel ID = [id number] for LAUREN Lester POCT-GLUCOSE [id number] 06:25:58 Test Item Value Reference Range Interpretation Comments POC-GLUCOSE METER 88 mg/dL 70-110 : TESTED A T [facility] 6720 (BEAKER) (test code = ANIL Brown [facility], 1538) [address]: Medical Numerical Control Operator/Techni daniel ID = [id number] for ALLISON ARMAS BASIC METABOLIC [id number] 04:22:37 Test Item Value Reference Range Interpretation [...] S NOT APPLICABLE FOR DIALYSIS PATIEN TS. Medical Numerical Control Operator ID - THEE QVbrqvlcse5728-13-06 04:16:36 Test Item Value Reference Range Interpretation Comments Magnesium (test code = 2.5 mg/dL 1.6-2.6 84607-9) CECELIA (test code = CECELIA) Medical Numerical Control Operator ID - THEE G Lab Interpretation (test Normal code = 59845-7) [facility] 04:16:36 Test Item Value Reference Range Interpretation Comments Phosphorus (test code = 2.8 mg/dL 2.3-4.7 2777-1) CECELIA (test code = CECELIA) Medical Numerical Control Operator ID - THEE G Lab Interpretation (test Normal code = 90716-8) [facility] CenterC-Reactive [id number] 04:16:36 Test Item Value Reference Range Interpretation Comments CRP (test code = 676) 11.91 mg/dL 0.00-0.50 H CECELIA (test code = CECELIA) Medical Numerical Control Operator ID - THEE G Lab Interpretation (test Abnormal code = 41823-9) [facility] Center[facility]esium2022-07-01 04:16:36 Test Item Value Reference Range Interpretation Comments Magnesium (test code = 2.5 mg/dL 1.6-2.6 26154-2) CECELIA (test code = CECELIA) Medical Numerical Control Operator ID - THEE G Lab Interpretation (test Normal code = 83302-5) [facility]20[facility]-07-01 04:16:36 Test Item Value Reference Range Interpretation Comments Phosphorus (test code = 2.8 mg/dL 2.3-4.7 2777-1) CECELIA (test code = CECELIA) Medical Numerical Control Operator ID - THEE G Lab Interpretation (test Normal code = 89088-8) [facility] Center[facility]active Lvigtsx5600-73-01 04:16:36 Test Item Value Reference Range Interpretation Comments CRP (test code = 676) 11.91 mg/dL 0.00-0.50 H CECELIA (test code = CECELIA) Medical Numerical Control Operator ID - THEE G Lab Interpretation (test Abnormal code = 66585-3) [facility] CenterMagnesium2022-07-01 04:16:36 Test Item Value Reference Range Interpretation Comments Magnesium (test code = 2.5 mg/dL 1.6-2.6 88103-6) CECELIA (test code = CECELIA) Medical Numerical Control Operator ID - THEE G Lab Interpretation (test Normal code = 16546-3) [facility] Center[facility]2022-07-01 04:16:36 Test Item Value Reference Range Interpretation Comments Phosphorus (test code = 2.8 mg/dL 2.3-4.7 2777-1) CECELIA (test code = CECELIA) Medical Numerical Control Operator ID - THEE G Lab Interpretation (test Normal code = 51304-1) [facility] Center[facility]active Mrojfdt2991-45-14 04:16:36 Test Item Value Reference Range Interpretation Comments CRP (test code = 676) 11.91 mg/dL 0.00-0.50 H CECELIA (test code = CECELIA) Medical Numerical Control Operator ID - THEE G Lab Interpretation (test Abnormal code = 73336-9) [facility] CenterMAGNESIUM2022-07-01 04:16:36 Test Item Value Reference Range Interpretation Comments MAGNESIUM (BEAKER) (test code = 2.5 mg/dL 1.6-2.6 627) Medical Numerical Control Operator ID - THEE SAUEWZPODDL8814-45-03 04:16:36 Test Item Value Reference Range Interpretation Comments PHOSPHORUS (BEAKER) (test code = 2.8 mg/dL 2.3-4.7 604) Medical Numerical Control Operator ID - THEE GC-REACTIVE UOXOUIQ9613-03-20 04:16:36 Test Item Value Reference Range Interpretation Comments C-REACTIVE PROTEIN (BEAKER) (test 11.91 mg/dL 0.00-0.50 H code = 676) Medical Numerical Control Operator ID - THEE GCBC (Hemogram only)2021-09-23 03:52:42 Test Item Value Reference Range Interpretation Comments WBC (test code = 6690-2) 10.1 See_Comment [A utomated message] The system [employer] generated this result transmitted ref erence range: 3.5 - 10 .5 K/L. The refe rence range was not u sed to interpret this result as normal/abnor mal. RBC (test code = 789-8) 2.66 See_Comment L [Au tomated message] The system [employer] generated this result transmitted ref erence range: 3.93 - 5 .22 M/L. The refe rence range was not u sed to interpret this result as normal/abnor mal. MCHC (test code = 786-4) 31.5 See_Comment L [A utomated message] The system [employer] generated this result transmitted ref erence range: [...] See_Comment [Aut omated message] 777-3) The system [employer] generated this result transmitted ref erence range: 150 - 45 0 K/CU MM. The referen ce range was not u sed to interpret this result as normal/abnor mal. MPV (test code = 9.4 fL 9.4-12.3 83992-1) nRBC (test code = 413) 0 See_Comment [Aut omated message] The system [employer] generated this result transmitted ref erence range: 0 - 0 /1 00 WBC. The refere nce range was not u sed to interpret this result as normal/abnor mal. Lab Interpretation (test Abnormal code = 00784-2) [facility] (Hemogram only)2021-09-23 03:52:42 Test Item Value Reference Range Interpretation Comments WBC (test code = 6690-2) 10.1 See_Comment [A utomated message] The system [employer] generated this result transmitted ref erence range: 3.5 - 10 .5 K/L. The refe rence range was not u sed to interpret this result as normal/abnor mal. RBC (test code = 789-8) 2.66 See_Comment L [Au tomated message] The system [employer] generated this result transmitted ref erence range: 3.93 - 5 .22 M/L. The refe rence range was not u sed to interpret this result as normal/abnor mal. MCHC (test code = 786-4) 31.5 See_Comment L [A utomated message] The system [employer] generated this result transmitted ref erence range: [...] See_Comment [Aut omated message] 777-3) The system [employer] generated this result transmitted ref erence range: 150 - 45 0 K/CU MM. The referen ce range was not u sed to interpret this result as normal/abnor mal. MPV (test code = 9.4 fL 9.4-12.3 45996-1) nRBC (test code = 413) 0 See_Comment [Aut omated message] The system [employer] generated this result transmitted ref erence range: 0 - 0 /1 00 WBC. The refere nce range was not u sed to interpret this result as normal/abnor mal. Lab Interpretation (test Abnormal code = 60407-2) [facility]2021-09-23 03:52:42 Test Item Value Reference Range Interpretation Comments WBC (test code = 6690-2) 10.1 See_Comment [A utomated message] The system [employer] generated this result transmitted ref erence range: 3.5 - 10 .5 K/L. The refe rence range was not u sed to interpret this result as normal/abnor mal. RBC (test code = 789-8) 2.66 See_Comment L [Au tomated message] The system [employer] generated this result transmitted ref erence range: 3.93 - 5 .22 M/L. The refe rence range was not u sed to interpret this result as normal/abnor mal. MCHC (test code = 786-4) 31.5 See_Comment L [A utomated message] The system [employer] generated this result transmitted ref erence range: [...] See_Comment [Aut omated message] 777-3) The system [employer] generated this result transmitted ref erence range: 150 - 45 0 K/CU MM. The referen ce range was not u sed to interpret this result as normal/abnor mal. MPV (test code = 9.4 fL 9.4-12.3 84685-2) nRBC (test code = 413) 0 See_Comment [Aut omated message] The system [employer] generated this result transmitted ref erence range: 0 - 0 /1 00 WBC. The refere nce range was not u sed to interpret this result as normal/abnor mal. Lab Interpretation (test Abnormal code = 97458-9) [facility] (HEMOGRAM ONLY)2021-09-23 03:52:42 Test Item Value [...] 0-0 (BEAKER) (test code = 413) POCT-GLUCOSE [id number] 23:51:03 Test Item Value Reference Range Interpretation Comments POC-GLUCOSE METER 158 mg/dL 70-110 H : TESTED A T [facility] 6720 (BEAKER) (test code = ANIL Brown [facility], 1538) 84374: Medical Numerical Control Operator/Techni daniel ID = [id number] for RA WEEMS ALLISON CT, BRAIN, WITHOUT [id number] 17:58:00Unlisted Reason for Exam - Click Yes and Enter Reason Below->No [facility] : 1965 Sex: FFINAL REPORT CT, BRAIN, WITHOUT CONTRAST CLINICAL INDICATION: Altered mental status COMPARISON: 08/18/2021 TECHNIQUE: Noncontrast axial CT imaging [...] are present throughout the periventricular and subcortical whitematter, and, although nonspecific by imaging, statistically represent mild chronic microvascular ischemic changes in this age group. No hydrocephalus. Orbits are within normal limits. No obstructive paranasal sinus disease. IMPRESSION: No acute intracranial findings If there is persistent clinical concern for intracranial pathology, MR examination is recommended for further characterization. Signed: Ruth Benítezeport Verified Date/Time: 09/22/2021 17:58:57 [id number] 15:11:51 Test Item Value Reference Range Interpretation Comments THYROID STIMULATING HORMONE 4.461 uIU/mL 0.350-4.940 (BEAKER) (test code = 772) Medical Numerical Control Operator ID - BSVITAMIN [id number] 15:11:51 Test Item Value Reference Range Interpretation Comments VITAMIN B12 (BEAKER) (test code = 647 pg/mL 213-816 774) Medical Numerical Control Operator ID - BSPOCT-GLUCOSE [id number] 11:59:22 Test Item Value Reference Range Interpretation Comments POC-GLUCOSE METER 142 mg/dL 70-110 H : TESTED A T [facility] 6720 (BEAKER) (test code [facility], = 1538) 47624: Medical Numerical Control Operator/Techni daniel ID = [id number] for LAUREN Lester DEVANG POCT-GLUCOSE [id number] 23:31:55 Test Item Value Reference Range Interpretation Comments POC-GLUCOSE METER 130 mg/dL 70-110 H : TESTED A T [facility] 6720 (BEAKER) (test code = [facility], 1538) 14710: Medical Numerical Control Operator/Techni daniel ID = [id number] for Vickie Hinkle VALPROIC ACID LEVEL, [id number] 19:13:57 Test Item Value Reference Range Interpretation Comments VALPROIC ACID TOTAL (BEAKER) (test 53 ug/mL 50-100 code = 924) Therapeutic range for some clinical conditions may be >100 ug/mLOperator ID - BSBLOOD [id number] 16:01:08 Test Item Value Reference Range Interpretation Comments CULTURE (BEAKER) (test No growth in 5 days code = 1095) BLOOD [id number] 16:01:07 Test Item Value Reference Range Interpretation Comments CULTURE (BEAKER) (test No growth in 5 days code = 1095) POCT-GLUCOSE [id number] 11:43:19 Test Item Value Reference Range Interpretation Comments POC-GLUCOSE METER 105 mg/dL 70-110 : TESTED A T [facility] 6720 (BEAKER) (test code = [facility] [place], 1538) 02436: Medical Numerical Control Operator/Techni daniel ID = [id number] for LEENA ROTHMAN POCT-GLUCOSE [id number] 06:58:18 Test Item Value Reference Range Interpretation Comments POC-GLUCOSE METER 138 mg/dL 70-110 H : TESTED A T [facility] 6720 (BEAKER) (test code = [facility] [place], 1538) 99064: Medical Numerical Control Operator/Techni daniel ID = [id number] for Amparo Warren BASIC METABOLIC [id number] 05:34:52 Test Item Value Reference Range Interpretation [...] S NOT APPLICABLE FOR DIALYSIS PATIEN TS. Medical Numerical Control Operator ID - PIROSIE LC-REACTIVE [id number] 05:34:35 Test Item Value Reference Range Interpretation Comments C-REACTIVE PROTEIN (BEAKER) (test 17.60 mg/dL 0.00-0.50 H code = 676) Medical Numerical Control Operator ID - DANA [id number] 05:34:34 Test Item Value Reference Range Interpretation Comments MAGNESIUM (BEAKER) (test code = 2.4 mg/dL 1.6-2.6 627) Medical Numerical Control Operator ID - PIAYA [id number] 05:34:34 Test Item Value Reference Range Interpretation Comments PHOSPHORUS (BEAKER) (test code = 3.2 mg/dL 2.3-4.7 604) Medical Numerical Control Operator ID - PIROSIE LPOCT-GLUCOSE [id number] 23:43:01 Test Item Value Reference Range Interpretation Comments POC-GLUCOSE METER 113 mg/dL 70-110 H : TESTED A T [facility] 6720 (BEAKER) (test code = [facility], [facility]) 49337: Medical Numerical Control Operator/Techni daniel ID = [id number] for Amparo Warren POCT-GLUCOSE [id number] 18:10:57 Test Item Value Reference Range Interpretation Comments POC-GLUCOSE METER 109 mg/dL 70-110 : TESTED A T [facility] 6720 (BEAKER) (test code = [facility], [facility]8) 70250: Medical Numerical Control Operator/Techni daniel ID = [id number] for TE ABHAY, BANDAR BLOOD [id number] 17:00:52 Test Item Value Reference Range Interpretation Comments CULTURE (BEAKER) (test No growth in 5 days code = 1095) POCT-GLUCOSE [id number] 12:23:54 Test Item Value Reference Range Interpretation Comments POC-GLUCOSE METER 102 mg/dL 70-110 : TESTED A T [facility] 6720 (BEAKER) (test code = [facility], [facility]8) 72114: Medical Numerical Control Operator/Techni daniel ID = [id number] for TE ABHAY, BANDAR POCT-GLUCOSE [id number] 06:03:14 Test Item Value Reference Range Interpretation Comments POC-GLUCOSE METER 117 mg/dL 70-110 H : TESTED A T [facility] 6720 (BEAKER) (test code = [facility], 1538) 50874: Medical Numerical Control Operator/Techni daniel ID = [id number] for ALLISON HORTA POCT-GLUCOSE [id number] 23:34:08 Test Item Value Reference Range Interpretation Comments POC-GLUCOSE METER 130 mg/dL 70-110 H : TESTED A T [facility] 6720 (BEAKER) (test code = [facility], [facility]8) 93324: Medical Numerical Control Operator/Techni daniel ID = [id number] for ALLISON HORTA POCT-GLUCOSE [id number] 17:25:33 Test Item Value Reference Range Interpretation Comments POC-GLUCOSE METER 118 mg/dL 70-110 H : TESTED A T [facility] 6720 (BEAKER) (test code = [facility], 1538) 02794: Medical Numerical Control Operator/Techni daniel ID = [id number] for LEENA ROTHMAN POCT-GLUCOSE [id number] 11:37:16 Test Item Value Reference Range Interpretation Comments POC-GLUCOSE METER 110 mg/dL 70-110 : TESTED A T [facility] 6720 (BEAKER) (test code = [facility], 1538) 80800: Medical Numerical Control Operator/Techni daniel ID = [id number] for LEENA ROTHMAN POCT-GLUCOSE [id number] 06:41:12 Test Item Value Reference Range Interpretation Comments POC-GLUCOSE METER 110 mg/dL 70-110 : TESTED A T [facility] 6720 (BEAKER) (test code = [facility], 1538) 61118: Medical Numerical Control Operator/Techni daniel ID = [id number] for ANGELIKA STALEY BASIC METABOLIC [id number] 05:33:28 Test Item Value Reference Range Interpretation [...] S NOT APPLICABLE FOR DIALYSIS PATIEN TS. Medical Numerical Control Operator ID - THEE [id number] 05:25:46 Test Item Value Reference Range Interpretation Comments MAGNESIUM (BEAKER) (test code = 2.3 mg/dL 1.6-2.6 627) Medical Numerical Control Operator ID - THEE GC-REACTIVE [id number] 05:25:46 Test Item Value Reference Range Interpretation Comments C-REACTIVE PROTEIN (BEAKER) (test 17.48 mg/dL 0.00-0.50 H code = 676) Medical Numerical Control Operator ID - THEE GPOCT-GLUCOSE [id number] 00:56:08 Test Item Value Reference Range Interpretation Comments POC-GLUCOSE METER 107 mg/dL 70-110 : TESTED A T [facility] 6720 (BEAKER) (test code = [facility], 1538) 41696: Medical Numerical Control Operator/Techni daniel ID = [id number] for ANGELIKA STALEY POCT-GLUCOSE [id number] 18:06:33 Test Item Value Reference Range Interpretation Comments POC-GLUCOSE METER 110 mg/dL 70-110 : TESTED A T [facility] 6720 (BEAKER) (test code = [facility], 1538) 10846: Medical Numerical Control Operator/Techni daniel ID = [id number] for GUERA RICKIE DONNIE POCT-GLUCOSE [id number] 12:14:38 Test Item Value Reference Range Interpretation Comments POC-GLUCOSE METER 116 mg/dL 70-110 H : TESTED A T [facility] 6720 (BEAKER) (test code = [facility], 1538) 01391: Medical Numerical Control Operator/Techni daniel ID = [id number] for GUERA RICKIE DONNIE BASIC METABOLIC [id number] 05:21:10 Test Item Value Reference Range Interpretation [...] S NOT APPLICABLE FOR DIALYSIS PATIEN TS. Medical Numerical Control Operator ID - THEE [id number] 05:13:01 Test Item Value Reference Range Interpretation Comments PHOSPHORUS (BEAKER) (test code = 2.0 mg/dL 2.3-4.7 L 604) Medical Numerical Control Operator ID - THEE [id number] 05:13:00 Test Item Value Reference Range Interpretation Comments MAGNESIUM (BEAKER) (test code = 2.1 mg/dL 1.6-2.6 627) Medical Numerical Control Operator ID - THEE [facility]BC (HEMOGRAM ONLY)2021-09-18 [...] 0-0 (BEAKER) (test code = 413) POCT-GLUCOSE [id number] 17:42:12 Test Item Value Reference Range Interpretation Comments POC-GLUCOSE METER 114 mg/dL 70-110 H : TESTED A T [facility] 6720 (BEAKER) (test code = [facility], 1538) 13022: Medical Numerical Control Operator/Techni daniel ID = [id number] for DONNIE LANGLEY BASIC METABOLIC [id number] 14:00:34 Test Item Value Reference Range Interpretation [...] S NOT APPLICABLE FOR DIALYSIS PATIEN TS. Medical Numerical Control Operator ID - BANDAR [id number] 13:54:23 Test Item Value Reference Range Interpretation Comments MAGNESIUM (BEAKER) (test code = 2.2 mg/dL 1.6-2.6 627) Medical Numerical Control Operator ID - BANDAR [facility] (HEMOGRAM ONLY)2021-09-17 [...] 0-0 (BEAKER) (test code = 413) POCT-GLUCOSE [id number] 12:17:44 Test Item Value Reference Range Interpretation Comments POC-GLUCOSE METER 106 mg/dL 70-110 : TESTED A T [facility] 6720 (BEAKER) (test code = [facility], 153) 97441: Medical Numerical Control Operator/Techni daniel ID = [id number] for DONNIE LANGLEY POCT-GLUCOSE [id number] 22:49:23 Test Item Value Reference Range Interpretation Comments POC-GLUCOSE METER 132 mg/dL 70-110 H : TESTED A T [facility] 6720 (BEAKER) (test code = [facility], 153) 57589: Medical Numerical Control Operator/Techni daniel ID = [id number] for DORITA ROXANNEMADANTIFFANYID POCT-GLUCOSE [id number] 17:34:14 Test Item Value Reference Range Interpretation Comments POC-GLUCOSE METER 122 mg/dL 70-110 H : TESTED A T [facility] 6720 (BEAKER) (test code = [facility], 153) 63845: Medical Numerical Control Operator/Techni daniel ID = [id number] for ROSHAN PAXTONVENKATOlivia CATHY SARS-COV2/RT-PCR ([facility])2021-09-16 13:48:06 Test Item Value Reference Range Interpretation Comments SARS-COV2/RT-PCR (test Positive Not Detected, Negative, AA code = 5477673) See external report for linked test SARS-COV-2 PERFORMING LAB [facility] (test code = 8741681) Results are for the detection of SARS-CoV-2 [...] 564(g) of the Act.Fact Sheet for Healthcare Providers:https://www.[employer].com/sites/default/files/product/documen ts/Qmeo_Mlivi_VS_Eekdlrazq_Hwsv_BMRG-ZuE-0.pdfFact Sheet for Healthcare Patients:https://www.[employer].c om/sites/default/files/product/documents/Vhps_Kxomu_Qpepdani_Lwhe_RHWX-LeU-0.pdf Performing Laboratory:[facility], [place] [address]TPQB-YSMDKSG [id number] 11:26:15 Test Item Value Reference Range Interpretation Comments POC-GLUCOSE METER 108 mg/dL 70-110 : TESTED A T [facility] 6720 (BEAKER) (test code = ANIL Brown [place], 1538) 06171: Medical Numerical Control Operator/Techni daniel ID = [id number] for CATHY MONTOYA POCT-GLUCOSE [id number] 06:27:24 Test Item Value Reference Range Interpretation Comments POC-GLUCOSE METER 97 mg/dL 70-110 : TESTED A T [facility] 6720 (BEAKER) (test code = ANIL Brown [place], 1538) 63072: Medical Numerical Control Operator/Techni daniel ID = [id number] for Fidelia Sullivan BASIC METABOLIC [id number] 03:59:42 Test Item Value Reference Range Interpretation [...] S NOT APPLICABLE FOR DIALYSIS PATIEN TS. Medical Numerical Control Operator ID - [id number] 03:56:56 Test Item Value Reference Range Interpretation Comments MAGNESIUM (BEAKER) (test code = 2.2 mg/dL 1.6-2.6 627) Medical Numerical Control Operator ID - [id number] 03:56:56 Test Item Value Reference Range Interpretation Comments PHOSPHORUS (BEAKER) (test code = 3.9 mg/dL 2.3-4.7 604) Medical Numerical Control Operator ID - ADMINVANCOMYCIN LEVEL, [id number] 03:52:49 Test Item Value Reference Range Interpretation Comments VANCOMYCIN RANDOM (BEAKER) (test 23.3 ug/mL code = 523) Reference Range: No NormalsOperator ID - ADMINCB (HEMOGRAM ONLY)2021-09-16 03:38:33 Test Item Value Reference [...] 0-0 (BEAKER) (test code = 413) POCT-GLUCOSE [id number] 23:18:54 Test Item Value Reference Range Interpretation Comments POC-GLUCOSE METER 104 mg/dL 70-110 : Notified RN/MD: ([facility]) (test code = TESTED AT [facility] 6720 1538) DASHAWN [facility], [address]: Medical Numerical Control Operator/Techni daniel ID = [id number] for BAIRON CHRISTENSEN POCT-GLUCOSE [id number] 17:14:40 Test Item Value Reference Range Interpretation Comments POC-GLUCOSE METER 77 mg/dL 70-110 : TESTED A T [facility] 6720 ([facility]) (test code = ANIL Brown [facility], 1538) 71378: Medical Numerical Control Operator/Techni daniel ID = [id number] for Kristian Hwang POCT-GLUCOSE [id number] 11:36:13 Test Item Value Reference Range Interpretation Comments POC-GLUCOSE METER 99 mg/dL 70-110 : TESTED A T [facility] 6720 (BEAKER) (test code = [place], 1538) 89590: Medical Numerical Control Operator/Techni daniel ID = [id number] for Kristian Hwang [id number] 09:38:21 Test Item Value Reference Range Interpretation Comments PROCALCITONIN (BEAKER) (test code 1.28 ng/mL <0.05 H = 3036) SEPSIS RISK (ng/mL)Low: 0.05-0.50Intermediate: 0.51-2.00High: >=2.01LACTIC ACID, [id number] 09:17:37 Test Item Value Reference Range Interpretation Comments LACTATE BLOOD VENOUS (2) (BEAKER) 1.14 mmol/L 0.50-2.20 (test code = 2872) Medical Numerical Control Operator ID - PIAYA LCBC W/PLT COUNT & AUTO [id number] 09:09:24 Test Item Value Reference Range Interpretation [...] PERCENT (BEAKER) (test code = 2801) POCT-GLUCOSE [id number] 06:12:37 Test Item Value Reference Range Interpretation Comments POC-GLUCOSE METER 84 mg/dL 70-110 : Notified RN/MD: TESTED ([facility]) (test code = AT [facility] [address] [place] [id number]) [facility], [facility] 30: Medical Numerical Control Operator/Techni daniel ID = [id number] for LATH BRIDGE, MABEL POCT-GLUCOSE [id number] 23:36:01 Test Item Value Reference Range Interpretation Comments POC-GLUCOSE METER 97 mg/dL 70-110 : Notified RN/MD: TESTED ([facility]) (test code = AT [facility] [address] [facility] 1538) [facility], [facility] 30: Medical Numerical Control Operator/Techni daniel ID = [id number] for LATH BRIDGE, MABEL POCT-GLUCOSE [id number] 18:09:46 Test Item Value Reference Range Interpretation Comments POC-GLUCOSE METER 94 mg/dL 70-110 : TESTED A T [facility] 6720 ([facility]) (test code = ANIL Brown [facility], 1538) 45971: Medical Numerical Control Operator/Techni daniel ID = [id number] for Crystal Varghese CBC (HEMOGRAM ONLY)2021-09-14 17:15:31 [...] = 413) RAD, CHEST, 1 VIEW, NON [id number] 17:12:00Reason for exam:->cough, feverShould this be performed at the bedside?->No [facility] 1965 Sex: [...] MDReport Verified Date/Time: 09/14/2021 17:12:21 BASI METABOLIC [id number] 14:20:30 Test Item Value Reference Range Interpretation [...] S NOT APPLICABLE FOR DIALYSIS PATIEN TS. Medical Numerical Control Operator ID - [id number] 14:12:02 Test Item Value Reference Range Interpretation Comments MAGNESIUM (BEAKER) 1.9 mg/dL 1.6-2.6 Specimen slightly (test code = 627) hemolyzed Medical Numerical Control Operator ID - [id number] 14:12:02 Test Item Value Reference Range Interpretation Comments PHOSPHORUS (BEAKER) 2.2 mg/dL 2.3-4.7 L Specimen slightly (test code = 604) hemolyzed Medical Numerical Control Operator ID - BSCBC W/PLT COUNT & AUTO [id number] 14:05:43 Test Item Value Reference Range Interpretation [...] PERCENT (BEAKER) (test code = 2801) POCT-GLUCOSE [id number] 12:21:16 Test Item Value Reference Range Interpretation Comments POC-GLUCOSE METER 82 mg/dL 70-110 : TESTED A T [facility] 6720 (BEAKER) (test code = [facility], [facility]) 59271: Medical Numerical Control Operator/Techni daniel ID = [id number] for Crystal Varghese POCT-GLUCOSE [id number] 07:31:12 Test Item Value Reference Range Interpretation Comments POC-GLUCOSE METER 94 mg/dL 70-110 : TESTED A T [facility] 6720 (BEAKER) (test code = [facility], [facility]8) 93334: Medical Numerical Control Operator/Techni daniel ID = [id number] for Sam rson, Najae POCT-GLUCOSE [id number] 06:33:11 Test Item Value Reference Range Interpretation Comments POC-GLUCOSE METER 66 mg/dL 70-110 L : TESTED A T [facility] 6720 (BEAKER) (test code = [facility], 1538) 30500: Medical Numerical Control Operator/Techni daniel ID = [id number] for Sam rson, Najae POCT-GLUCOSE [id number] 01:18:11 Test Item Value Reference Range Interpretation Comments POC-GLUCOSE METER 94 mg/dL 70-110 : TESTED A T [facility] 6720 (BEAKER) (test code = [facility], [facility]8) 38834: Medical Numerical Control Operator/Techni daniel ID = [id number] for Rita Baca POCT-GLUCOSE [id number] 00:41:03 Test Item Value Reference Range Interpretation Comments POC-GLUCOSE METER 73 mg/dL 70-110 : TESTED A T [facility] 6720 (BEAKER) (test code = [facility], [facility]) 96305: Medical Numerical Control Operator/Techni daniel ID = [id number] for Rita Baca POCT-GLUCOSE [id number] 19:01:25 Test Item Value Reference Range Interpretation Comments POC-GLUCOSE METER 85 mg/dL 70-110 : TESTED A T [facility] 6720 (BEAKER) (test code = [facility], [facility]8) 41207: Medical Numerical Control Operator/Techni daniel ID = [id number] for Aníbal Flores POCT-GLUCOSE [id number] 12:53:55 Test Item Value Reference Range Interpretation Comments POC-GLUCOSE METER 76 mg/dL 70-110 : TESTED A T [facility] 6720 (BEAKER) (test code = [facility], [facility]8) 12150: Medical Numerical Control Operator/Techni daniel ID = [id number] for Crystal Varghese POCT-GLUCOSE [id number] 06:10:51 Test Item Value Reference Range Interpretation Comments POC-GLUCOSE METER 74 mg/dL 70-110 : TESTED A T [facility] 6720 (BEAKER) (test code = [facility], [facility]8) 55838: Medical Numerical Control Operator/Techni daniel ID = [id number] for MIGUELITO CAMPUZANO POCT-GLUCOSE [id number] 23:49:08 Test Item Value Reference Range Interpretation Comments POC-GLUCOSE METER 70 mg/dL 70-110 : TESTED A T [facility] 6720 (BEAKER) (test code = [facility], [facility]8) 16614: Medical Numerical Control Operator/Techni daniel ID = [id number] for MIGUELITO CAMPUZANO POCT-GLUCOSE [id number] 18:55:34 Test Item Value Reference Range Interpretation Comments POC-GLUCOSE METER 72 mg/dL 70-110 : TESTED A T [facility] 6720 (BEAKER) (test code = [facility], [facility]8) 90911: Medical Numerical Control Operator/Techni daniel ID = [id number] for ROSSANA SALINAS HEPATITIS B SURFACE [id number] 15:59:47 Test Item Value Reference Range Interpretation Comments HEPATITIS B SURFACE ANTIGEN (2) Nonreactive Nonreactive (BEAKER) (test code = 2585) Specimen is considered negative for HBsAg.POCT-GLUCOSE [id number] 13:47:27 Test Item Value Reference Range Interpretation Comments POC-GLUCOSE METER 127 mg/dL 70-110 H : TESTED A T [facility] 6720 (BEAKER) (test code = [facility], 1538) 56542: Medical Numerical Control Operator/Techni daniel ID = [id number] for FELICIANO LEONARD POCT-GLUCOSE [id number] 13:11:52 Test Item Value Reference Range Interpretation Comments POC-GLUCOSE METER 66 mg/dL 70-110 L : TESTED A T [facility] 6720 (BEAKER) (test code = [facility], 1538) 60485: Medical Numerical Control Operator/Techni daniel ID = [id number] for Janes Acosta POCT-GLUCOSE [id number] 06:41:15 Test Item Value Reference Range Interpretation Comments POC-GLUCOSE METER 78 mg/dL 70-110 : TESTED A T [facility] 6720 (BEAKER) (test code = [facility], 1538) 07725: Medical Numerical Control Operator/Techni daniel ID = [id number] for Leidy Wolf BASIC METABOLIC [id number] 06:03:05 Test Item Value Reference Range Interpretation [...] S NOT APPLICABLE FOR DIALYSIS PATIEN TS. Medical Numerical Control Operator ID - DBCBC W/PLT COUNT & AUTO [id number] 05:27:35 Test Item Value Reference Range Interpretation [...] H PERCENT (BEAKER) (test code = 2801) [id number] 05:03:14 Test Item Value Reference Range Interpretation Comments PARTIAL THROMBOPLASTIN TIME 70.9 seconds 22.5-36.0 H (BEAKER) (test code = 760) POCT-GLUCOSE [id number] 23:57:21 Test Item Value Reference Range Interpretation Comments POC-GLUCOSE METER 77 mg/dL 70-110 : TESTED A T [facility] 6720 (BEAKER) (test code = [place], 1538) 58[address]: Medical Numerical Control Operator/Techni daniel ID = [id number] for Leidy Wolf [id number] 18:38:34 Test Item Value Reference Range Interpretation [...] 0-0 (BEAKER) (test code = 413) POCT-GLUCOSE [id number] 18:08:00 Test Item Value Reference Range Interpretation Comments POC-GLUCOSE METER 74 mg/dL 70-110 : TESTED A T [facility] 6720 (BEAKER) (test code = [facility], [facility]8) 00994: Medical Numerical Control Operator/Techni daniel ID = [id number] for [place], [employer] POCT-GLUCOSE [id number] 13:12:29 Test Item Value Reference Range Interpretation Comments POC-GLUCOSE METER 69 mg/dL 70-110 L : TESTED A T [facility] 6720 (BEAKER) (test code = [facility], [facility]) 26987: Medical Numerical Control Operator/Techni daniel ID = [id number] for [place], [employer] [id number] 12:30:50 Test Item Value Reference Range Interpretation Comments PARTIAL THROMBOPLASTIN TIME 77.2 seconds 22.5-36.0 H (BEAKER) (test code = 760) POCT-GLUCOSE [id number] 10:56:50 Test Item Value Reference Range Interpretation Comments POC-GLUCOSE METER 86 mg/dL 70-110 : TESTED A T [facility] 6720 (BEAKER) (test code = [facility], [facility]8) 76187: Medical Numerical Control Operator/Techni daniel ID = [id number] for Shailesh goode, Bernardo POCT-GLUCOSE [id number] 06:43:38 Test Item Value Reference Range Interpretation Comments POC-GLUCOSE METER 74 mg/dL 70-110 : TESTED A T [facility] 6720 (BEAKER) (test code = [facility], [facility]8) 90380: Medical Numerical Control Operator/Techni daniel ID = [id number] for Leidy Wolf [id number] 05:37:41 Test Item Value Reference Range Interpretation Comments PARTIAL THROMBOPLASTIN TIME 55.9 seconds 22.5-36.0 H (BEAKER) (test code = 760) [id number] 03:37:37 Test Item Value Reference Range Interpretation Comments PARTIAL THROMBOPLASTIN TIME 137.2 seconds 22.5-36.0 H (BEAKER) (test code = 760) POCT-GLUCOSE [id number] 01:19:33 Test Item Value Reference Range Interpretation Comments POC-GLUCOSE METER 78 mg/dL 70-110 : TESTED A T [facility] 6720 (BEAKER) (test code = [facility], 1538) 82161: Medical Numerical Control Operator/Techni daniel ID = [id number] for Leidy Wolf [id number] 18:12:08 Test Item Value Reference Range Interpretation Comments PARTIAL THROMBOPLASTIN TIME 108.3 seconds 22.5-36.0 H (BEAKER) (test code = 760) POCT-GLUCOSE [id number] 17:37:49 Test Item Value Reference Range Interpretation Comments POC-GLUCOSE METER 71 mg/dL 70-110 : TESTED A T [facility] 6720 (BEAKER) (test code = [facility], [facility]8) 28585: Medical Numerical Control Operator/Techni daniel ID = [id number] for BRENDON NEERAJ, CATHY POCT-GLUCOSE [id number] 11:56:09 Test Item Value Reference Range Interpretation Comments POC-GLUCOSE METER 91 mg/dL 70-110 : TESTED A T [facility] 6720 (BEAKER) (test code = [facility], 1538) 99581: Medical Numerical Control Operator/Techni daniel ID = [id number] for BRENDON NEERAJ, CATHY [id number] 10:59:29 Test Item Value Reference Range Interpretation Comments PARTIAL THROMBOPLASTIN TIME 49.1 seconds 22.5-36.0 H (BEAKER) (test code = 760) [id number] 09:34:25 Test Item Value Reference Range Interpretation Comments PARTIAL THROMBOPLASTIN TIME 119.2 seconds 22.5-36.0 H (BEAKER) (test code = 760) POCT-GLUCOSE [id number] 08:13:50 Test Item Value Reference Range Interpretation Comments POC-GLUCOSE METER 72 mg/dL 70-110 : TESTED A T [facility] 6720 (BEAKER) (test code = [facility], 1538) 39566: Medical Numerical Control Operator/Techni daniel ID = [id number] for BRENDON NEERAJ, CATHY POCT-GLUCOSE [id number] 07:13:36 Test Item Value Reference Range Interpretation Comments POC-GLUCOSE METER 66 mg/dL 70-110 L : TESTED A T [facility] 6720 ([facility]) (test code = [facility] Nithya [facility], 1538) 79398: Medical Numerical Control Operator/Techni daniel ID = [id number] for Leidy Wolf [id number] 03:21:24 Test Item Value Reference Range Interpretation Comments PARTIAL THROMBOPLASTIN TIME 70.8 seconds 22.5-36.0 H (BEAKER) (test code = 760) POCT-GLUCOSE [id number] 00:46:57 Test Item Value Reference Range Interpretation Comments POC-GLUCOSE METER 79 mg/dL 70-110 : TESTED A T [facility] 6720 (CARLY) (test code = [facility], 1538) 63320: Medical Numerical Control Operator/Techni daniel ID = [id number] for Leidy Wolf [id number] 17:47:53 Test Item Value Reference Range Interpretation Comments PARTIAL THROMBOPLASTIN TIME 26.9 seconds 22.5-36.0 (BEAKER) (test code = 760) POCT-GLUCOSE [id number] 17:29:51 Test Item Value Reference Range Interpretation Comments POC-GLUCOSE METER 86 mg/dL 70-110 : TESTED A T [facility] 6720 (PARVIZ) (test code = [facility], 1538) 94040: Medical Numerical Control Operator/Techni daniel ID = [id number] for CATHY HONEYCUTT SARS-COV2/RT-PCR ([facility])2021-09-09 16:21:38 Test Item Value Reference Range Interpretation Comments SARS-COV2/RT-PCR Negative Negative The SARS-Co V-2 target (test code = nucleic acids a re not 7016017) detected in thi s specimen. Negative result [...] rapid, real-time RT-PC R test intended for e qualitative detection of nu cleic acid [...] revoked sooner. Fact Sheet for Healthcare Providers: https://www.[employer] m/Documents/Xpert%20Xpress%20SARS%20CoV-2/Fact%20Sheets/302-3802%72XJAK-FPO-2%20 HEALTHCARE%20PROVIDERS%20FACT%20SHEET.pdf Fact Sheet for Healthcare Patients: https://www.[employer]/Documents/Xpert%20Xp ress%20SARS%20CoV-2/Fact%20Sheets/3023801%15JFZD-NTH-4%20PATIENT%20FACT%20SHEET .pdfPOCT-GLUCOSE [id number] 12:24:09 Test Item Value Reference Range Interpretation Comments POC-GLUCOSE METER 76 mg/dL 70-110 : TESTED A T [facility] 6720 ([employer]) (test code = ANIL Brown [facility], 1538) 40783: Medical Numerical Control Operator/Techni daniel ID = [id number] for CATHY HONEYCUTT POCT-GLUCOSE [id number] 10:14:48 Test Item Value Reference Range Interpretation Comments POC-GLUCOSE METER 71 mg/dL 70-110 : TESTED A T [facility] 6720 (BEAKER) (test code = ANIL Brown [facility], 1538) 79752: Medical Numerical Control Operator/Techni daniel ID = [id number] for ShaliniScooby carreno MISCELLANEOUS LAB [id number] 09:27:23 Test Item Value Reference Range Interpretation Comments SCAN RESULT (test code = See scanned report [id number]) See scanned [id number] 08:22:05 Test Item Value Reference Range Interpretation Comments PARTIAL THROMBOPLASTIN TIME 92.7 seconds 22.5-36.0 H (BEAKER) (test code = 760) BASIC METABOLIC [id number] 07:14:28 Test Item Value Reference Range Interpretation [...] S NOT APPLICABLE FOR DIALYSIS PATIEN TS. Medical Numerical Control Operator ID - THEE [id number] 07:07:43 Test Item Value Reference Range Interpretation Comments PHOSPHORUS (BEAKER) (test code = 4.0 mg/dL 2.3-4.7 604) Medical Numerical Control Operator ID - THEE [id number] 07:07:42 Test Item Value Reference Range Interpretation Comments MAGNESIUM (BEAKER) (test code = 1.9 mg/dL 1.6-2.6 627) Medical Numerical Control Operator ID - THEE GPOCT-GLUCOSE [id number] 06:22:47 Test Item Value Reference Range Interpretation Comments POC-GLUCOSE METER 83 mg/dL 70-110 : TESTED A T [facility] 6720 (BEAKER) (test code = AN[facility] D[facility] [place], 1538) 32921: Medical Numerical Control Operator/Techni daniel ID = [id number] for MIGUELITO CAMPUZANO PROTHROMBIN TIME/[id number] 06:05:39 Test Item Value Reference Range Interpretation Comments PROTIME (BEAKER) 15.4 seconds 11.9-14.2 H (test code = 759) INR (BEAKER) (test 1.24 See_Comment [Automat ed message] code = 370) The system [employer] generated this result transmitted ref erence range: <=5.90. The reference range was not used to int erpret this result as normal/abnormal . RECOMMENDED COUMADIN/WARFARIN INR THERAPY RANGESSTANDARD DOSE: 2.0 - 3.0 Includes: PROPHYLAXIS for venous thrombosis, systemic embolization; TREATMENT for venous thrombosis and/or pulmonary embolus.HIGH RISK: Target INR is 2.5-3.5 for patients with mechanical heart valves.CBC W/PLT COUNT & AUTO [id number] 05:55:10 Test Item Value Reference Range Interpretation [...] 0-1 PERCENT (BEAKER) (test code = 2801) [id number] 01:10:08 Test Item Value Reference Range Interpretation Comments PARTIAL THROMBOPLASTIN TIME 51.7 seconds 22.5-36.0 H (BEAKER) (test code = 760) POCT-GLUCOSE [id number] 23:49:41 Test Item Value Reference Range Interpretation Comments POC-GLUCOSE METER 74 mg/dL 70-110 : TESTED A T [facility] 6720 (BEAKER) (test code = [facility] [place], 1538) 51480: Medical Numerical Control Operator/Techni daniel ID = [id number] for MIGUELITO CAMPUZANO CBC (HEMOGRAM ONLY)2021-09-08 18:13:52 [...] 0-0 (BEAKER) (test code = 413) POCT-GLUCOSE [id number] 17:34:42 Test Item Value Reference Range Interpretation Comments POC-GLUCOSE METER 78 mg/dL 70-110 : TESTED A T [facility] 6720 (BEAKER) (test code = [facility], 1538) 48388: Medical Numerical Control Operator/Techni daniel ID = [id number] for [place], [employer] [id number] 16:13:30 Test Item Value Reference Range Interpretation Comments PARTIAL THROMBOPLASTIN TIME 50.8 seconds 22.5-36.0 H (BEAKER) (test code = 760) [id number] 14:57:35 Test Item Value Reference Range Interpretation Comments PARTIAL THROMBOPLASTIN TIME > seconds 22.5-36.0 HH (BEAKER) (test code = 760) POCT-GLUCOSE [id number] 12:28:52 Test Item Value Reference Range Interpretation Comments POC-GLUCOSE METER 88 mg/dL 70-110 : TESTED A T [facility] 6720 (BEAKER) (test code = [facility], 1538) 11086: Medical Numerical Control Operator/Techni daniel ID = [id number] for [place], [employer] [id number] 07:11:35 Test Item Value Reference Range Interpretation Comments PARTIAL THROMBOPLASTIN TIME 55.9 seconds 22.5-36.0 H (BEAKER) (test code = 760) [id number] 22:36:09 Test Item Value Reference Range Interpretation Comments PARTIAL THROMBOPLASTIN TIME 106.1 seconds 22.5-36.0 H (BEAKER) (test code = 760) [id number] 20:46:48 Test Item Value Reference Range Interpretation Comments PARTIAL THROMBOPLASTIN TIME > seconds 22.5-36.0 HH (BEAKER) (test code = 760) [id number] 11:12:06 Test Item Value Reference Range Interpretation Comments PARTIAL THROMBOPLASTIN TIME 89.5 seconds 22.5-36.0 H (BEAKER) (test code = 760) [id number] 09:44:23 Test Item Value Reference Range Interpretation Comments PARTIAL THROMBOPLASTIN TIME 154.4 seconds 22.5-36.0 HH (BEAKER) (test code = 760) [id number] 00:28:57 Test Item Value Reference Range Interpretation Comments PARTIAL THROMBOPLASTIN TIME 63.4 seconds 22.5-36.0 H (BEAKER) (test code = 760) [id number] 17:46:24 Test Item Value Reference Range Interpretation Comments PARTIAL THROMBOPLASTIN TIME 46.8 seconds 22.5-36.0 H (BEAKER) (test code = 760) [id number] 09:28:45 Test Item Value Reference Range Interpretation Comments PARTIAL THROMBOPLASTIN TIME 31.6 seconds 22.5-36.0 (BEAKER) (test code = 760) [id number] 07:27:38 Test Item Value Reference Range Interpretation Comments PARTIAL THROMBOPLASTIN TIME 186.4 seconds 22.5-36.0 HH (BEAKER) (test code = 760) [id number] 04:56:25 Test Item Value Reference Range Interpretation Comments PARTIAL THROMBOPLASTIN TIME 138.6 seconds 22.5-36.0 H (BEAKER) (test code = 760) [id number] 21:52:53 Test Item Value Reference Range Interpretation [...] 0-0 (BEAKER) (test code = 413) POCT-GLUCOSE [id number] 11:22:59 Test Item Value Reference Range Interpretation Comments POC-GLUCOSE METER 60 mg/dL 70-110 L : TESTED A T [facility] 6720 (BEAKER) (test code = ANIL Brown [facility], 1538) 61464: Medical Numerical Control Operator/Techni daniel ID = [id number] for ROSSANA SALINAS BASIC METABOLIC [id number] 06:09:12 Test Item Value Reference Range Interpretation [...] S NOT APPLICABLE FOR DIALYSIS PATIEN TS. Medical Numerical Control Operator ID - BANDAR MCBC W/PLT COUNT & AUTO [id number] 05:37:39 Test Item Value Reference Range Interpretation [...] PERCENT (BEAKER) (test code = 2801) SARS-COV2/RT-PCR ([facility])2021-09-03 16:03:43 Test Item Value Reference Range Interpretation Comments SARS-COV2/RT-PCR (test Negative Not Detected, Negative, code = 6881265) See external report for linked test SARS-COV-2 PERFORMING LAB [facility] ANDREEA (test code = 9730793) Negative result for this test determines that [...] of the Act.Fact Sheet for Healthcare Prov iders:https://www.[employer]/sites/default/files/product/documents/Fact_Sheet_HC _Bmzenphhd_Gxun_KWUR-HoR-1.pdfFact Sheet for Healthcare Patients:https://www.[employer]/sites/default/files/product/docume nts/Djio_Rrwom_Oxyiatgh_Pyxk_GQPE-PxF-7.pdfPerforming Laboratory:[facility].[place], [place] [address]KHEZI METABOLIC PANEL 2021-09-02 04:27:05 Test Item Value [...] S NOT APPLICABLE FOR DIALYSIS PATIEN TS. Medical Numerical Control Operator ID - BANDAR [id number] 04:23:13 Test Item Value Reference Range Interpretation Comments MAGNESIUM (BEAKER) (test code = 2.2 mg/dL 1.6-2.6 627) Medical Numerical Control Operator ID - BANDAR [id number] 04:23:13 Test Item Value Reference Range Interpretation Comments PHOSPHORUS (BEAKER) (test code = 3.9 mg/dL 2.3-4.7 604) Medical Numerical Control Operator ID - BANDAR MCBC W/PLT COUNT & AUTO [id number] 04:13:07 Test Item Value Reference Range Interpretation [...] (BEAKER) (test code = 2801) Paraneoplastic Panel, [id number] 09:50:29 Test Item Value Reference Range Interpretation Comments PARANEOPLASTIC ANTIBODY See scanned report (test code = 86717875) CECELIA (test code = CECELIA) See scanned report [facility], [id number] 09:50:29 Test Item Value Reference Range Interpretation Comments PARANEOPLASTIC ANTIBODY See scanned report (test code = 87074245) CECELIA (test code = CECELIA) See scanned report [facility] Center[facility], [id number] 09:50:29 Test Item Value Reference Range Interpretation Comments PARANEOPLASTIC ANTIBODY See scanned report (test code = 11130985) CECELIA (test code = CECELIA) See scanned report [facility] CenterPARANEOPLASTIC AB EVAL W/ REFLEX TITER & LB, CSF 2021-09-01 09:50:29 Test Item Value Reference Range Interpretation Comments PARANEOPLASTIC ANTIBODY See scanned report (test code = 92496264) See scanned reportPOCT-GLUCOSE [id number] 16:50:16 Test Item Value Reference Range Interpretation Comments POC-GLUCOSE METER 84 mg/dL 70-110 : TESTED A T [facility] 6720 (BEAKER) (test code = [facility] [employer] [facility], 1538) 15082: Medical Numerical Control Operator/Techni daniel ID = [id number] for MICHELLE Ware, THOMAS POCT-GLUCOSE [id number] 12:37:05 Test Item Value Reference Range Interpretation Comments POC-GLUCOSE METER 109 mg/dL 70-110 : TESTED A T [facility] 6720 (BEAKER) (test code = [facility] [employer] [facility], 1538) 20608: Medical Numerical Control Operator/Techni daniel ID = [id number] for THOMAS WILLIAMSON VALPROIC ACID LEVEL, [id number] 12:00:18 Test Item Value Reference Range Interpretation Comments VALPROIC ACID TOTAL (BEAKER) (test 53 ug/mL 50-100 code = 924) Therapeutic range for some clinical conditions may be >100 ug/mLOperator ID - BANDAR MPOCT-GLUCOSE [id number] 06:08:37 Test Item Value Reference Range Interpretation Comments POC-GLUCOSE METER 82 mg/dL 70-110 : TESTED A T [facility] 6720 (BEAKER) (test code = [facility] [employer] [facility], 1538) 07991: Medical Numerical Control Operator/Techni daniel ID = [id number] for MARGARITO CAMPUZANO BASIC METABOLIC [id number] 03:48:13 Test Item Value Reference Range Interpretation [...] S NOT APPLICABLE FOR DIALYSIS PATIEN TS. Medical Numerical Control Operator ID - BANDAR [id number] 03:29:08 Test Item Value Reference Range Interpretation Comments MAGNESIUM (BEAKER) (test code = 2.2 mg/dL 1.6-2.6 627) Medical Numerical Control Operator ID - BANDRA [id number] 03:29:08 Test Item Value Reference Range Interpretation Comments PHOSPHORUS (BEAKER) (test code = 2.9 mg/dL 2.3-4.7 604) Medical Numerical Control Operator ID - BANDAR [id number] 03:18:24 Test Item Value Reference Range Interpretation Comments PARTIAL THROMBOPLASTIN TIME 63.2 seconds 22.5-36.0 H (BEAKER) (test code = 760) CBC W/PLT COUNT & AUTO [id number] 03:07:32 Test Item Value Reference Range Interpretation [...] PERCENT (BEAKER) (test code = 2801) POCT-GLUCOSE [id number] 23:42:07 Test Item Value Reference Range Interpretation Comments POC-GLUCOSE METER 81 mg/dL 70-110 : TESTED A T [facility] 6720 (BEAKER) (test code = ANIL Brown [facility], 1538) 56837: Medical Numerical Control Operator/Techni daniel ID = [id number] for MARGARITO CAMPUZANO POCT-GLUCOSE [id number] 18:26:13 Test Item Value Reference Range Interpretation Comments POC-GLUCOSE METER 87 mg/dL 70-110 : TESTED A T [facility] 6720 (CARLY) (test code = ANIL Brown [facility], 1538) 29870: Medical Numerical Control Operator/Techni daniel ID = [id number] for KWABENA MENDOZA RAD, CHEST, 1 VIEW, NON [id number] 12:12:00Reason for exam:->Mechanical VentilationShould this be performed at the bedside?->Yes [facility] : 1965 Sex: FFINAL REPORT [...] MDReport Verified Date/Time: 08/30/2021 12:12:03 Reading Location: [facility] Radiology Reading Room POCT-GLUCOSE [id number] 11:48:25 Test Item Value Reference Range Interpretation Comments POC-GLUCOSE METER 83 mg/dL 70-110 : Notified RN/: TESTED (BEAKER) ([facility] [address] 1538) [facility], 770 30: Medical Numerical Control Operator/Techni daniel ID = [id number] for KWABENA MENDOZA POCT-GLUCOSE [id number] 06:02:06 Test Item Value Reference Range Interpretation Comments POC-GLUCOSE METER 83 mg/dL 70-110 : [facility] (BEAKER) (test code = ANIL Brown [facility], 1538) 39219: Medical Numerical Control Operator/Techni daniel ID = [id number] for MARGARITO CAMPUZANO BASIC METABOLIC [id number] 05:17:36 Test Item Value Reference Range Interpretation [...] S NOT APPLICABLE FOR DIALYSIS PATIEN TS. Medical Numerical Control Operator ID - [id number] 05:16:29 Test Item Value Reference Range Interpretation Comments PHOSPHORUS (BEAKER) (test code = 2.2 mg/dL 2.3-4.7 L 604) Medical Numerical Control Operator ID - [id number] 05:16:28 Test Item Value Reference Range Interpretation Comments MAGNESIUM (BEAKER) (test code = 2.0 mg/dL 1.6-2.6 627) Medical Numerical Control Operator ID - DBPOCT-GLUCOSE [id number] 04:55:04 Test Item Value Reference Range Interpretation Comments POC-GLUCOSE METER 84 mg/dL 70-110 : [facility] ([facility]ER[facility] (test code = ANIL [place], 1538) 84510: Medical Numerical Control Operator/Techni daniel ID = [id number] for MARGARITO CAMPUZANO [id number] 04:04:18 Test Item Value Reference Range Interpretation Comments PARTIAL THROMBOPLASTIN TIME 81.3 seconds 22.5-36.0 H (BEAKER) (test code = 760) CBC W/PLT COUNT & AUTO [id number] 03:53:12 Test Item Value Reference Range Interpretation [...] PERCENT (BEAKER) (test code = 2801) POCT-GLUCOSE [id number] 23:51:43 Test Item Value Reference Range Interpretation Comments POC-GLUCOSE METER 72 mg/dL 70-110 : [facility] ([facility]ER[facility] (test code = [facility], 1538) 38240: Medical Numerical Control Operator/Techni daniel ID = [id number] for MARGARITO CAMPUZANO [id number] 22:34:43 Test Item Value Reference Range Interpretation Comments PARTIAL THROMBOPLASTIN TIME 93.8 seconds 22.5-36.0 H (BEAKER) (test code = 760) POCT-GLUCOSE [id number] 18:22:56 Test Item Value Reference Range Interpretation Comments POC-GLUCOSE METER 90 mg/dL 70-110 : TESTED A T [facility] 6720 (BEAKER) (test code = [facility], 1538) 34308: Medical Numerical Control Operator/Techni daniel ID = [id number] for KWABENA MENDOZA [id number] 15:34:45 Test Item Value Reference Range Interpretation Comments PARTIAL THROMBOPLASTIN TIME 116.4 seconds 22.5-36.0 H (BEAKER) (test code = 760) RAD, ABDOMEN/KUB, 1 VIEW [id number] 13:45:00Reason for exam:->NG placement [facility] : 1965 Sex: FFINAL REPORT [...] MDReport Verified Date/Time: 08/29/2021 13:45:52 Reading Location: [facility] Radiology Reading Room , CHEST, 1 VIEW, NON [id number] 12:35:00Reason for exam:->Mechanical VentilationShould this be performed at the bedside?->Yes [facility] MAKI STRATTON [place] : 1965 Sex: FFINAL [...] Wild Verified Date/Time: 08/29/2021 12:35:35 Reading Location: [facility] Radiology Reading Room -GLUCOSE [id number] 12:00:31 Test Item Value Reference Range Interpretation Comments POC-GLUCOSE METER 99 mg/dL 70-110 : TESTED A T [facility] 6720 ([facility]) (test code = ANIL Brown [facility], 1538) 27536: Medical Numerical Control Operator/Techni daniel ID = [id number] for KWABENA MENDOZA [id number] 07:13:11 Test Item Value Reference Range Interpretation Comments PARTIAL THROMBOPLASTIN TIME 60.8 seconds 22.5-36.0 H (BEAKER) (test code = 760) COMPREHENSIVE METABOLIC [id number] 05:57:39 Test Item Value Reference Range Interpretation [...] S NOT APPLICABLE FOR DIALYSIS PATIEN TS. Medical Numerical Control Operator ID - [id number] 05:51:57 Test Item Value Reference Range Interpretation Comments MAGNESIUM (BEAKER) (test code = 2.3 mg/dL 1.6-2.6 627) Medical Numerical Control Operator ID - [id number] 05:51:57 Test Item Value Reference Range Interpretation Comments PHOSPHORUS (BEAKER) (test code = 2.4 mg/dL 2.3-4.7 604) Medical Numerical Control Operator ID - DBPOCT-GLUCOSE [id number] 05:44:30 Test Item Value Reference Range Interpretation Comments POC-GLUCOSE METER 87 mg/dL 70-110 : TESTED A T [facility] 6720 (BEAKER) (test code = [facility] [place], 1538) 23296: Medical Numerical Control Operator/Techni daniel ID = [id number] for Jared hooper Gómez CBC W/PLT COUNT & AUTO [id number] 04:08:39 Test Item Value Reference Range Interpretation [...] (BEAKER) (test code = 2801) Blood gas, [id number] 04:05:56 Test Item Value Reference Range Interpretation [...] 21 Lab Interpretation Abnormal (test code = 22628-7) [facility] [id number] 04:05:56 Test Item Value Reference Range Interpretation [...] 21 Lab Interpretation Abnormal (test code = 57725-4) [facility], [id number] 04:05:56 Test Item Value Reference Range Interpretation [...] 21 Lab Interpretation Abnormal (test code = 53997-0) [facility], [id number] 04:05:56 Test Item Value Reference Range Interpretation [...] FIO2 (BEAKER) (test code = 1819) 21.0 [id number] 00:56:24 Test Item Value Reference Range Interpretation Comments PARTIAL THROMBOPLASTIN TIME 71.9 seconds 22.5-36.0 H (BEAKER) (test code = 760) POCT-GLUCOSE [id number] 00:41:07 Test Item Value Reference Range Interpretation Comments POC-GLUCOSE METER 91 mg/dL 70-110 : TESTED A T [facility] 6720 (BEAKER) (test code = [facility] [place], 1538) 63852: Medical Numerical Control Operator/Techni daniel ID = [id number] for Gómez Choudhary [id number] 22:35:43 Test Item Value Reference Range Interpretation Comments PARTIAL THROMBOPLASTIN TIME 126.1 seconds 22.5-36.0 H (BEAKER) (test code = 760) POCT-GLUCOSE [id number] 18:20:04 Test Item Value Reference Range Interpretation Comments POC-GLUCOSE METER 95 mg/dL 70-110 : TESTED A T [facility] 6720 (BEAKER) (test code = [facility], 153) 96059: Medical Numerical Control Operator/Techni daniel ID = [id number] for Estelle Riley [id number] 13:35:16 Test Item Value Reference Range Interpretation Comments PARTIAL THROMBOPLASTIN TIME 96.0 seconds 22.5-36.0 H (BEAKER) (test code = 760) POCT-GLUCOSE [id number] 12:13:53 Test Item Value Reference Range Interpretation Comments POC-GLUCOSE METER 107 mg/dL 70-110 : TESTED A T [facility] 6720 (BEAKER) (test code = [facility], 153) 41532: Medical Numerical Control Operator/Techni daniel ID = [id number] for Mary Arango POCT-GLUCOSE [id number] 07:28:56 Test Item Value Reference Range Interpretation Comments POC-GLUCOSE METER 120 mg/dL 70-110 H : TESTED A T [facility] 6720 (BEAKER) (test code = [facility], 153) 11787: Medical Numerical Control Operator/Techni daniel ID = [id number] for MIGUEL VILLANUEVA BLOOD GAS, [id number] 05:13:53 Test Item Value Reference Range Interpretation [...] (test code = 1819) 21.0 BASIC METABOLIC [id number] 04:56:46 Test Item Value Reference Range Interpretation [...] S NOT APPLICABLE FOR DIALYSIS PATIEN TS. Medical Numerical Control Operator ID - [id number] 04:55:26 Test Item Value Reference Range Interpretation Comments MAGNESIUM (BEAKER) (test code = 2.1 mg/dL 1.6-2.6 627) Medical Numerical Control Operator ID - [id number] 04:55:26 Test Item Value Reference Range Interpretation Comments PHOSPHORUS (BEAKER) (test code = 1.7 mg/dL 2.3-4.7 L 604) Medical Numerical Control Operator ID - DBPT/[id number] 04:45:02 Test Item Value Reference Range Interpretation [...] mechanical heart valves.RAD, CHEST, 1 VIEW, NON [id number] 04:45:00Reason for exam:->Mechanical VentilationShould this be performed at the bedside?->Yes [facility] : 1965 Sex: FFINAL REPORT RAD, CHEST, 1 VIEW, NON DEPT INDICATION: Mechanical VentilationCOMPARISON: Prior day's exam FINDINGS: Portable frontal view of the chest. IMPRESSION: Support Lines: Stable. Lungs and pleura: No airspace consolidation or effusion. No pneumothorax. Heart and mediastinum: Stable contours. Additional findings: None. Signed: [facility] Verified Date/Time: 08/28/2021 04:45:57 CBC W/PLT COUNT & AUTO [id number] 04:33:07 Test Item Value Reference Range Interpretation [...] PERCENT (BEAKER) (test code = 2801) POCT-GLUCOSE [id number] 23:58:48 Test Item Value Reference Range Interpretation Comments POC-GLUCOSE METER 112 mg/dL 70-110 H : TESTED A T [facility] 6720 (BEAKER) (test code = [facility], 1538) 03042: Medical Numerical Control Operator/Techni daniel ID = [id number] for Jamel Wallis PT/[id number] 21:44:25 Test Item Value Reference Range Interpretation [...] patients with mechanical heart valves.VALPROIC ACID LEVEL, [id number] 20:58:58 Test Item Value Reference Range Interpretation Comments VALPROIC ACID TOTAL (BEAKER) (test 61 ug/mL 50-100 code = 924) Therapeutic range for some clinical conditions may be >100 ug/mLOperator ID - DBPOCT-GLUCOSE [id number] 17:42:41 Test Item Value Reference Range Interpretation Comments POC-GLUCOSE METER 94 mg/dL 70-110 : TESTED A T [facility] 6720 (BEAKER) (test code = [facility], 1538) 45831: Medical Numerical Control Operator/Techni daniel ID = [id number] for Thi Julian [id number] 15:29:15 Test Item Value Reference Range Interpretation Comments PARTIAL THROMBOPLASTIN TIME 74.7 seconds 22.5-36.0 H (BEAKER) (test code = 760) POCT-GLUCOSE [id number] 12:32:00 Test Item Value Reference Range Interpretation Comments POC-GLUCOSE METER 95 mg/dL 70-110 : TESTED A T [facility] 6720 (BEAKER) (test code = [facility], 1538) 60112: Medical Numerical Control Operator/Techni daniel ID = [id number] for Simm ons, Nguyen POCT-GLUCOSE [id number] 10:00:37 Test Item Value Reference Range Interpretation Comments POC-GLUCOSE METER 124 mg/dL 70-110 H : TESTED A T [facility] 6720 (BEAKER) (test code = [facility] [place], 1538) 64935: Medical Numerical Control Operator/Techni daniel ID = [id number] for Estelle Knowles RAD, CHEST, 1 VIEW, NON [id number] 08:06:00Reason for exam:->Mechanical VentilationShould this be performed at the bedside?->Yes [facility] : 1965 Sex: [...] Benítez Verified Date/Time: 08/27/2021 08:06:25 BASIC METABOLIC [id number] 07:55:43 Test Item Value Reference Range Interpretation [...] S NOT APPLICABLE FOR DIALYSIS PATIEN TS. Medical Numerical Control Operator ID - BANDAR [id number] 07:50:28 Test Item Value Reference Range Interpretation Comments PHOSPHORUS (BEAKER) 1.7 mg/dL 2.3-4.7 L Specimen slightly (test code = 604) hemolyzed Medical Numerical Control Operator ID - BANDAR [id number] 07:50:27 Test Item Value Reference Range Interpretation Comments MAGNESIUM (BEAKER) 2.0 mg/dL 1.6-2.6 Specimen slightly (test code = 627) hemolyzed Medical Numerical Control Operator ID - BANDAR MPT/[id number] 07:27:38 Test Item Value Reference Range Interpretation [...] for patients with mechanical heart valves.BLOOD GAS, [id number] 07:25:05 Test Item Value Reference Range Interpretation [...] 1819) 21.0 CBC W/PLT COUNT & AUTO [id number] 07:17:29 Test Item Value Reference Range Interpretation [...] PERCENT (BEAKER) (test code = 2801) POCT-GLUCOSE [id number] 07:13:25 Test Item Value Reference Range Interpretation Comments POC-GLUCOSE METER 63 mg/dL 70-110 L : TESTED A T [facility] 6720 (BEAKER) (test code = [facility], 1538) 47298: Medical Numerical Control Operator/Techni daniel ID = [id number] for MIGUEL VALENCIA POCT-GLUCOSE [id number] 03:43:12 Test Item Value Reference Range Interpretation Comments POC-GLUCOSE METER 117 mg/dL 70-110 H : TESTED A T [facility] 6720 (BEAKER) (test code = [facility], 1538) 70279: Medical Numerical Control Operator/Techni daniel ID = [id number] for MIGUEL VILLANUEVA Prepare [id number] 23:55:00 Test Item Value Reference Range Interpretation Comments CROSSMATCH (test code = 2264) COMPATIBLE Unit ABO (test code = O Pos 8523042) UNIT NUMBER (test code = [id number] 934-0) Status (test code = 1960668) TX_TIMEINCHART Blood Bank Product (test code RED BLOOD CELLS = 2263) PRODUCT CODE (test code = Z5122V69 933-2) [facility] [id number] 23:55:00 Test Item Value Reference Range Interpretation Comments CROSSMATCH (test code = 2264) COMPATIBLE Unit ABO (test code = O Pos 2733365) UNIT NUMBER (test code = [id number] 934-0) Status (test code = 4200068) [facility] Product (test code RED BLOOD CELLS = 2263) PRODUCT CODE (test code = C4940Q03 933-2) [facility] Center[facility] [id number] 23:55:00 Test Item Value Reference Range Interpretation Comments CROSSMATCH (test code = 2264) COMPATIBLE Unit ABO (test code = O Pos 2334242) UNIT NUMBER (test code = [id number] 934-0) Status (test code = 0351481) [facility] Blood Bank Product (test code RED BLOOD CELLS = 2263) PRODUCT CODE (test code = P1163D21 933-2) [facility] CenterPOCT-GLUCOSE [id number] 18:21:30 Test Item Value Reference Range Interpretation Comments POC-GLUCOSE METER 121 mg/dL 70-110 H : Notified RN/MD: (CARLY) (test code = TESTED AT [facility] 8606 3697) [facility], [address]: Medical Numerical Control Operator/Techni daniel ID = [id number] for KWABENA MOORE VALPROIC ACID LEVEL, [id number] 17:02:29 Test Item Value Reference Range Interpretation [...] Igg Index,Csf (test 0.58 <0.66 code = 4057369) Albumin, CSF (test 5.1 mg/dL 8.0-42.0 L code = 7149412) IgG, CSF (test code 1.2 mg/dL 0.8-7.7 = ) IMMUNOGLOBULIN G, 900 mg/dL 600-1640 SERUM (test code = 7344208) Albumin, Serum (test 2.2 g/dL 3.5-5.2 L The Ig G Synthesis code = 3878089) rate, CSF an d IgG index, CSF are two formulae forestimating t he amount of IgG produced in the central nervous system. Evidenc eof increased synthesis of Ig G provides suppor t for the diagnos is of multiplescleros is. CECELIA (test code = Performing Lab EZ CECELIA) [facility] [place] [address] [place] [address] Kaleb Fernandes MD, PhD, GUNJAN Lab Interpretation Abnormal (test code = 23572-1) [facility] CenterIgG Index (CSF + Blood)2021-08-26 13:15:35 [...] Igg Index,Csf (test 0.58 <0.66 code = 9309768) Albumin, CSF (test 5.1 mg/dL 8.0-42.0 L code = 8979406) IgG, CSF (test code 1.2 mg/dL 0.8-7.7 = ) IMMUNOGLOBULIN G, 900 mg/dL 600-1640 SERUM (test code = 4836693) Albumin, Serum (test 2.2 g/dL 3.5-5.2 L The Ig G Synthesis code = 1312499) rate, CSF an d IgG index, CSF are two formulae forestimating t he amount of IgG produced in the central nervous system. Evidenc eof increased synthesis of Ig G provides suppor t for the diagnos is of multiplescleros is. CECELIA (test code = Performing Lab EZ CECELIA) [facility] [place] [address] [place] [address] Kaleb Fernandes MD, PhD, GUNJAN Lab Interpretation Abnormal (test code = 64405-8) [facility] CenterIgG Index (CSF + Blood)2021-08-26 13:15:35 [...] Igg Index,Csf (test 0.58 <0.66 code = 9807878) Albumin, CSF (test 5.1 mg/dL 8.0-42.0 L code = 6096245) IgG, CSF (test code 1.2 mg/dL 0.8-7.7 = 4415118) IMMUNOGLOBULIN G, 900 mg/dL 600-1640 SERUM (test code = 4239263) Albumin, Serum (test 2.2 g/dL 3.5-5.2 L The Ig G Synthesis code = 0363640) rate, CSF an d IgG index, CSF are two formulae forestimating t he amount of IgG produced in the central nervous system. Evidenc eof increased synthesis of Ig G provides suppor t for the diagnos is of multiplescleros is. CECELIA (test code = Performing Lab EZ CECELIA) [facility] [address] [place] [address] Kaleb Fernandes MD, PhD, GUNJAN Lab Interpretation Abnormal (test code = 05060-3) [facility] CenterPOCT-GLUCOSE [id number] 13:11:52 Test Item Value Reference Range Interpretation Comments POC-GLUCOSE METER 131 mg/dL 70-110 H : [facility] (test code = [place], 1538) 92866: Medical Numerical Control Operator/Techni daniel ID = [id number] for KWABENA MOORE [id number] 10:32:48 Test Item Value Reference Range Interpretation Comments PARTIAL THROMBOPLASTIN TIME 80.4 seconds 22.5-36.0 H (BEAKER) (test code = 760) RAD, CHEST, 1 VIEW, NON [id number] 08:24:00Reason for exam:->Mechanical VentilationShould this be performed at the bedside?->Yes [facility] : 1965 Sex: [...] Benítez Verified Date/Time: 08/26/2021 08:24:59 Reading Location: [facility] Radiology Reading Room POCT-GLUCOSE [id number] 05:37:42 Test Item Value Reference Range Interpretation Comments POC-GLUCOSE METER 109 mg/dL 70-110 : TESTED A T [facility] 6720 (BEAKER) (test code [facility], = 1538) 49186: Medical Numerical Control Operator/Techni daniel ID = [id number] for DEVIN OLVERA BASIC METABOLIC [id number] 05:34:54 Test Item Value Reference Range Interpretation [...] S NOT APPLICABLE FOR DIALYSIS PATIEN TS. Medical Numerical Control Operator ID Chris STANTONROSIE [id number] 05:33:11 Test Item Value Reference Range Interpretation Comments PHOSPHORUS (BEAKER) (test code = 1.8 mg/dL 2.3-4.7 L 604) Medical Numerical Control Operator ID - DANA [id number] 05:33:10 Test Item Value Reference Range Interpretation Comments MAGNESIUM (BEAKER) (test code = 2.1 mg/dL 1.6-2.6 627) Medical Numerical Control Operator ID - MAXIMINOROSIE [id number] 05:07:34 Test Item Value Reference Range Interpretation Comments PARTIAL THROMBOPLASTIN TIME 88.6 seconds 22.5-36.0 H (BEAKER) (test code = 760) BLOOD GAS, [id number] 05:04:51 Test Item Value Reference Range Interpretation [...] 1819) 21.0 CBC W/PLT COUNT & AUTO [id number] 01:02:26 Test Item Value Reference Range Interpretation [...] PERCENT (BEAKER) (test code = 2801) POCT-GLUCOSE [id number] 23:37:00 Test Item Value Reference Range Interpretation Comments POC-GLUCOSE METER 195 mg/dL 70-110 H : TESTED A T [facility] 6720 (BEPARVIZ) (test code = [facility] [place], 1538) 759[address]: Medical Numerical Control Operator/Techni daniel ID = [id number] for TOM ALEGRIA [id number] 21:52:26 Test Item Value Reference Range Interpretation Comments PARTIAL THROMBOPLASTIN TIME 102.9 seconds 22.5-36.0 H (BEAKER) (test code = 760) SARS-COV2/RT-PCR ([facility])2021-08-25 21:18:24 Test Item Value Reference Range Interpretation Comments SARS-COV2/RT-PCR (test code = Negative Negative 4727543) Negative result for this test determines that [...] of the Act.Testing was performed using t he Lao SARS-CoV-2 assay.Fact Sheet for Healthcare Providers:https://www.molecular.lao/marianela/RT SARS-CoV-2 HCP Fact Sheet 51- 568899.pdfFact Sheet for Healthcare Patients:https://www.Digitick.lao/marianela/RT SARS-CoV-2 Patient Fact Sheet EN 51-659774I2.pdfPOCT-GLUCOSE [id number] 18:25:16 Test Item Value Reference Range Interpretation Comments POC-GLUCOSE METER 247 mg/dL 70-110 H : TESTED A T [facility] 6720 [facility] (test code = MICHAEL[facility]INE Brown [facility], 1538) [address]: Medical Numerical Control Operator/Techni daniel ID = [id number] for LEIGHTON TOWNSEND West Nile Virus, CSF, IgG and [id number] 15:54:50 Test Item Value Reference Range Interpretation Comments West Nile <0.90 REFERENCE RANGE : <0.90 Ab,Igm (test INTERPRETIVE CR ITERIA code = <0.90 Antibody not 6869074) detected 0.90 - 1.10 Equivocal >1.10 Antibody [...] (test Performing Lab code = CECELIA) *QDID [facility] [address] [place] [address] Kaleb Fernandes MD, PhD [facility] CenterWest Nile Virus, CSF, IgG and [id number] 15:54:50 Test Item Value Reference Range Interpretation Comments West Nile <0.90 REFERENCE RANGE : <0.90 Ab,Igm (test INTERPRETIVE CR ITERIA code = <0.90 Antibody not 2609615) detected 0.90 - 1.10 Equivocal >1.10 Antibody [...] (test Performing Lab code = CECELIA) *QDID [facility] [address] [place], [place] [address] Kaleb Fernandes MD, PhD [facility] CenterWest Nile Virus, CSF, IgG and [id number] 15:54:50 Test Item Value Reference Range Interpretation Comments West Nile <0.90 REFERENCE RANGE : <0.90 Ab,Igm (test INTERPRETIVE CR ITERIA code = <0.90 Antibody not 2745561) detected 0.90 - 1.10 Equivocal >1.10 Antibody [...] Lab code = CECELIA) *QDID [facility] [address] [place] [address] Kaleb Fernandes MD, PhD [facility] CenterAPTT2022-06-02 14:48:58 Test Item Value Reference Range Interpretation Comments PARTIAL THROMBOPLASTIN TIME 41.5 seconds 22.5-36.0 H (BEAKER) (test code = 760) POC-Glucose [id number] 12:57:53 Test Item Value Reference Range Interpretation Comments POC-Glucose Meter (test 106 mg/dL 70-110 : TE STED AT [facility] code = 1538) 6720 [facility], 770 [address]: Medical Numerical Control Operator/Techni daniel ID = [id number] for Lay Johns a Lab Interpretation (test Normal code = 79357-8) [facility] CenterPOCT-GLUCOSE [id number] 12:57:53 Test Item Value Reference Range Interpretation Comments POC-GLUCOSE METER 106 mg/dL 70-110 : TESTED A T [facility] 6720 ([facility]) (test code = [facility], 1538) [address]: Medical Numerical Control Operator/Techni daniel ID = [id number] for Nguyen Foster Prepare Leuko-Red [id number] 12:14:00 Test Item Value Reference Range Interpretation Comments CROSSMATCH (test code = 2264) COMPATIBLE Unit ABO (test code = O Pos 6459014) UNIT NUMBER (test code = [id number] 934-0) Status (test code = 0499340) READY Blood Bank Product (test code RED BLOOD CELLS = 2263) PRODUCT CODE (test code = B7225A93 933-2) [facility] Center[facility] Leuko-Red [id number] 12:14:00 Test Item Value Reference Range Interpretation Comments CROSSMATCH (test code = 2264) COMPATIBLE Unit ABO (test code = O Pos 1018747) UNIT NUMBER (test code = [id number] 934-0) Status (test code = 0894031) READY Blood Bank Product (test code RED BLOOD CELLS = 2263) PRODUCT CODE (test code = U9592A49 933-2) [facility] Center[facility] Leuko-Red [id number] 12:14:00 Test Item Value Reference Range Interpretation Comments CROSSMATCH (test code = 2264) COMPATIBLE Unit ABO (test code = O Pos 0639967) UNIT NUMBER (test code = [id number] 934-0) Status (test code = 4470330) READY Blood Bank Product (test code RED BLOOD CELLS = 2263) PRODUCT CODE (test code = N6717X62 933-2) [facility] CenterPrep[facility] Leuko-Red [id number] 12:14:00 Test Item Value Reference Range Interpretation Comments CROSSMATCH (test code = 2264) COMPATIBLE Unit ABO (test code = O Pos 1940507) UNIT NUMBER (test code = [id number] 934-0) Status (test code = 8042115) READY Blood Bank Product (test code RED BLOOD CELLS = 2263) PRODUCT CODE (test code = T1753X43 933-2) [facility] CenterAPTT2022-06-02 11:50:59 Test Item Value Reference Range Interpretation Comments PARTIAL THROMBOPLASTIN TIME 124.7 seconds 22.5-36.0 H (BEAKER) (test code = 760) LACTIC ACID, [id number] 11:30:11 Test Item Value Reference Range Interpretation Comments LACTATE BLOOD VENOUS 0.96 mmol/L 0.50-2.20 Specime n slightly (2) (BEAKER) (test hemolyzed code = 2872) Medical Numerical Control Operator ID - BSRAD, CHEST, 1 VIEW, NON [id number] 11:18:00Reason for exam:- >Mechanical VentilationShould this be performed at the bedside?->Yes [facility] : 1965 Sex: FFINAL REPORT [...] Benítez Verified Date/Time: 08/25/2021 11:18:15 Reading Location: [facility] Radiology Reading Room Electronically signed by: RUTH BENÍTEZ MD on08/25/2021 11:18 AMSputum Culture + Gram [id number] 10:08:37 Test Item Value Reference Range Interpretation Comments Result (test code = 1+ Normal respiratory 6463-4) johnny present Gram Stain Result No organisms seen (test code = 1123) [facility] [id number] 10:08:37 Test Item Value Reference Range Interpretation Comments Result (test code = 1+ Normal respiratory 6463-4) johnny present Gram Stain Result No organisms seen (test code = 1123) [facility] Gram [id number] 10:08:37 Test Item Value Reference Range Interpretation Comments Result (test code = 1+ Normal respiratory 6463-4) johnny present Gram Stain Result No organisms seen (test code = 1123) [facility] Gram [id number] 10:08:37 Test Item Value Reference Range Interpretation Comments Result (test code = 1+ Normal respiratory 6463-4) johnny present Gram Stain Result No organisms seen (test code = 1123) [facility] + GRAM [id number] 10:08:37 Test Item Value Reference Range Interpretation Comments CULTURE (BEAKER) 1+ Normal respiratory (test code = 1095) johnny present GRAM STAIN RESULT <1+ WBCs (BEAKER) (test code = 1123) GRAM STAIN RESULT No organisms seen (BEAKER) (test code = 62160) HEPATIC FUNCTION [id number] 09:14:03 Test Item Value Reference Range Interpretation [...] code = < U/L 6-55 L 347) Medical Numerical Control Operator ID - BSCREATINE KINASE (CK)2021-08-25 09:01:58 Test Item Value Reference Range Interpretation Comments CREATINE KINASE TOTAL (BEAKER) (test 46 U/L 29-200 code = 380) Medical Numerical Control Operator ID - BSCBC (HEMOGRAM ONLY)2021-08-25 06:27:41 [...] H (BEAKER) (test code = 413) POC-Glucose [id number] 06:02:24 Test Item Value Reference Range Interpretation Comments POC-Glucose Meter (test 136 mg/dL 70-110 H : TE STED AT [facility] code = 1538) 6720 [facility], 770 30: Medical Numerical Control Operator/Techni daniel ID = [id number] for PRESTON HYATT Lab Interpretation (test Abnormal code = 84178-3) [facility] CenterPOCT-GLUCOSE [id number] 06:02:24 Test Item Value Reference Range Interpretation Comments POC-GLUCOSE METER 136 mg/dL 70-110 H : TESTED A T [facility] 6720 (BEAKER) (test code = [facility] Nithya [facility], 1538) [address]: Medical Numerical Control Operator/Techni daniel ID = [id number] for PRESTON HYATT [id number] 04:23:40 Test Item Value Reference Range Interpretation Comments PARTIAL THROMBOPLASTIN TIME 102.9 seconds 22.5-36.0 H (BEAKER) (test code = 760) [id number] 03:36:27 Test Item Value Reference Range Interpretation Comments PHOSPHORUS (BEAKER) (test code = 0.8 mg/dL 2.3-4.7 LL 604) Medical Numerical Control Operator ID - BASI METABOLIC [id number] 03:35:15 Test Item Value Reference Range Interpretation [...] S NOT APPLICABLE FOR DIALYSIS PATIEN TS. Medical Numerical Control Operator ID - [id number] 03:31:58 Test Item Value Reference Range Interpretation Comments MAGNESIUM (BEAKER) (test code = 2.0 mg/dL 1.6-2.6 627) Medical Numerical Control Operator ID - BSLACTIC ACID, [id number] 03:23:15 Test Item Value Reference Range Interpretation Comments LACTATE BLOOD VENOUS 2.91 mmol/L 0.50-2.20 H Specime n slightly (2) (BEAKER) (test hemolyzed code = 9572) Medical Numerical Control Operator ID - BSCBC W/PLT COUNT & AUTO [id number] 03:22:48 Test Item Value Reference Range Interpretation [...] (BEAKER) (test code = 2801) Blood gas, [id number] 03:16:19 Test Item Value Reference Range Interpretation Comments pH, Arterial (test code 7.48 7.35-7.45 H = 2744-1) pCO2, Arterial (test 39 See_Comment [Autom ated message] code = 2018-8) The system Mosaic generated this result transmit sally reference range : 35 - 45 mm Hg. The reference range was not used to interpret this result as normal/abnormal . pO2, Arterial (test 169 See_Comment H [Automa sally message] code = 2703-7) The system Mosaic generated this result transmit sally reference range [...] 30 Lab Interpretation Abnormal (test code = 35580-0) [facility] CenterBlood gas, [id number] 03:16:19 Test Item Value Reference Range Interpretation Comments pH, Arterial (test code 7.48 7.35-7.45 H = 2744-1) pCO2, Arterial (test 39 See_Comment [Autom ated message] code = 2019-8) The system Mosaic generated this result transmit sally reference range : 35 - 45 mm Hg. The reference range was not used to interpret this result as normal/abnormal . pO2, Arterial (test 169 See_Comment H [Automa sally message] code = 2703-7) The system Mosaic generated this result transmit sally reference range [...] 30 Lab Interpretation Abnormal (test code = 68137-5) [facility] GAS, [id number] 03:16:19 Test Item Value Reference Range Interpretation [...] (BEAKER) (test code = 1819) 30.0 POCT-GLUCOSE [id number] 23:21:14 Test Item Value Reference Range Interpretation Comments POC-GLUCOSE METER 219 mg/dL 70-110 H : TESTED A T [facility] 6720 (BEAKER) (test code = [facility] [place], 1538) [address]: Medical Numerical Control Operator/Techni daniel ID = [id number] for Lily Khan PHENYTOIN LEVEL, [id number] 18:02:03 Test Item Value Reference Range Interpretation Comments PHENYTOIN (DILANTIN) (BEAKER) 10.8 ug/mL 10.0-20.0 (test code = 605) Medical Numerical Control Operator ID - BSLactic Acid, [id number] 17:18:10 Test Item Value Reference Range Interpretation Comments Lactate, Art (test code = 3.3 mmol/L 0.5-2.2 H 2874) CECELIA (test code = CECELIA) Medical Numerical Control Operator ID - BS Lab Interpretation (test Abnormal code = 00453-3) [facility] CenterLactic Acid, [id number] 17:18:10 Test Item Value Reference Range Interpretation Comments Lactate, Art (test code = 3.3 mmol/L 0.5-2.2 H 2874) CECELIA (test code = CECELIA) Medical Numerical Control Operator ID - BS Lab Interpretation (test Abnormal code = 98482-1) [facility] CenterLactic Acid, [id number] 17:18:10 Test Item Value Reference Range Interpretation Comments Lactate, Art (test code = 3.3 mmol/L 0.5-2.2 H 2874) CECELIA (test code = CECELIA) Medical Numerical Control Operator ID - BS Lab Interpretation (test Abnormal code = 73742-8) [facility] Center[facility], [id number] 17:18:10 Test Item Value Reference Range Interpretation Comments Lactate, Art (test code = 3.3 mmol/L 0.5-2.2 H 2874) CECELIA (test code = CECELIA) Medical Numerical Control Operator ID - BS Lab Interpretation (test Abnormal code = 43146-2) [facility] Center[facility], [id number] 17:18:10 Test Item Value Reference Range Interpretation Comments Lactate, Art (test code = 3.3 mmol/L 0.5-2.2 H 2873) CECELIA (test code = CECELIA) Medical Numerical Control Operator ID - BS Lab Interpretation (test Abnormal code = 85741-5) [facility] CenterLACTIC ACID, [id number] 17:18:10 Test Item Value Reference Range Interpretation Comments LACTATE BLOOD ARTERIAL (2) 3.3 mmol/L 0.5-2.2 H (BEAKER) (test code = 2874) Medical Numerical Control Operator ID - BSPOCT-GLUCOSE [id number] 17:14:39 Test Item Value Reference Range Interpretation Comments POC-GLUCOSE METER 201 mg/dL 70-110 H : [facility] (test code = ANIL Brown [facility], 1538) 24344: Medical Numerical Control Operator/Techni daniel ID = [id number] for DANA LIVE [id number] 17:11:31 Test Item Value Reference Range Interpretation Comments PARTIAL THROMBOPLASTIN TIME 34.6 seconds 22.5-36.0 (AKER) (test code = 760) POCT-GLUCOSE [id number] 15:32:40 Test Item Value Reference Range Interpretation Comments POC-GLUCOSE METER 205 mg/dL 70-110 H : TESTED A T [facility] 6720 ([facility]) (test code [facility], = 1538) 09060: Medical Numerical Control Operator/Techni daniel ID = [id number] for VIRAJ RYDER RAD, CHEST, 1 VIEW, NON [id number] 10:11:00Reason for exam:->post picc lineShould this be performed at the bedside?->Yes [facility] : 1965 Sex: FFINAL REPORT [...] No acute bone abnormality. Signed: Sergio Ramirez [facility] Verified Date/Time: 08/24/2021 10:11:09 [facility] gram [id number] 08:51:16 Test Item Value Reference Range Interpretation Comments Result (test code = 6463-4) No growth Gram Stain Result (test No organisms seen code = 1123) [facility] culture + gram [id number] 08:51:16 Test Item Value Reference Range Interpretation Comments Result (test code = 6463-4) No growth Gram Stain Result (test No organisms seen code = 1123) [facility] culture + gram [id number] 08:51:16 Test Item Value Reference Range Interpretation Comments Result (test code = 6463-4) No growth Gram Stain Result (test No organisms seen code = 1123) [facility] culture + gram [id number] 08:51:16 Test Item Value Reference Range Interpretation Comments Result (test code = 6463-4) No growth Gram Stain Result (test No organisms seen code = 1123) [facility] culture + gram [id number] 08:51:16 Test Item Value Reference Range Interpretation Comments Result (test code = 6463-4) No growth Gram Stain Result (test No organisms seen code = 1123) [facility] CULTURE + GRAM [id number] 08:51:16 Test Item Value Reference Range Interpretation Comments CULTURE (BEAKER) (test No growth code = 1095) GRAM STAIN RESULT No White blood cells (BEAKER) (test code = seen 1123) GRAM STAIN RESULT No organisms seen (BEAKER) (test code = 55045) (CELLAVISION MANUAL DIFF)2021-08-24 07:11:26 Test Item Value [...] CONCENTRATION Adequate (CELLAVISION)(BEAKER) (test code = 3438) Medical Numerical Control Operator ID - charis Ang comments: Slide comments:CBC W/PLT COUNT & AUTO [id number] 07:11:25 Test Item Value Reference Range Interpretation [...] CELLS (BEAKER) (test code = 413) POCT-GLUCOSE [id number] 06:02:48 Test Item Value Reference Range Interpretation Comments POC-GLUCOSE METER 158 mg/dL 70-110 H : TESTED A T [facility] (BEAKER) (test code = [place], 1538) 56750: Medical Numerical Control Operator/Techni daniel ID = [id number] for Lily Khan METABOLIC [id number] 06:02:11 Test Item Value Reference Range Interpretation [...] S NOT APPLICABLE FOR DIALYSIS PATIEN TS. Medical Numerical Control Operator ID - DANA [id number] 05:50:44 Test Item Value Reference Range Interpretation Comments PHOSPHORUS (BEAKER) (test code = 1.6 mg/dL 2.3-4.7 L 604) Medical Numerical Control Operator ID - MAXIMINOROSIE [id number] 05:50:43 Test Item Value Reference Range Interpretation Comments MAGNESIUM (BEAKER) (test code = 2.1 mg/dL 1.6-2.6 627) Medical Numerical Control Operator ID - MAXIMINOROSIE LBLOOD GAS, [id number] 05:48:16 Test Item Value Reference Range Interpretation [...] (BEAKER) (test code = 1819) 30.0 CALCIUM, [id number] 05:48:16 Test Item Value Reference Range Interpretation Comments CALCIUM IONIZED (BEAKER) (test 1.09 mmol/L 1.12-1.27 L code = 698) PH, BLOOD (BEAKER) (test code = 7.43 1810) [id number] 05:40:48 Test Item Value Reference Range Interpretation Comments PARTIAL THROMBOPLASTIN TIME 143.9 seconds 22.5-36.0 H (BEAKER) (test code = 760) LACTIC ACID, [id number] 05:26:27 Test Item Value Reference Range Interpretation Comments LACTATE BLOOD VENOUS (2) (BEAKER) 2.61 mmol/L 0.50-2.20 H (test code = 2872) Medical Numerical Control Operator ID - BSRAD, CHEST, 1 VIEW, NON [id number] 01:27:00Reason for exam:- >Mechanical VentilationShould this be performed at the bedside?->Yes [facility] : 1965 Sex: FFINAL REPORT [...] Date/Time: 08/24/2021 01:27:04 RAD, ABDOMEN/KUB, 1 VIEW [id number] 01:27:00Reason for exam:->s/p corpak placementShould this be performed at the bedside?->Yes [facility] : 1965 Sex: FFINAL REPORT [...] terminates in the distal stomach/proximal duodenum. Signed: Williams, Jerry MDReport Verified Date/Time: 08/24/2021 01:27:04 POCT-GLUCOSE [id number] 23:59:45 Test Item Value Reference Range Interpretation Comments POC-GLUCOSE METER 205 mg/dL 70-110 H : TESTED A T [facility] 6720 (BEAKER) (test code = ANIL Brown [place], 1538) 88935: Medical Numerical Control Operator/Techni daniel ID = [id number] for MARGARITO DINH [id number] 21:22:54 Test Item Value Reference Range Interpretation Comments PARTIAL THROMBOPLASTIN TIME 119.0 seconds 22.5-36.0 H (BEAKER) (test code = 760) [id number] 19:09:03 Test Item Value Reference Range Interpretation Comments PARTIAL THROMBOPLASTIN TIME 198.9 seconds 22.5-36.0 HH (BEAKER) (test code = 760) POCT-GLUCOSE [id number] 16:52:22 Test Item Value Reference Range Interpretation Comments POC-GLUCOSE METER 225 mg/dL 70-110 H : TESTED A T [facility] 6720 (BEAKER) (test code = ANIL Brown [place], 1538) 195[address]: Medical Numerical Control Operator/Techni daniel ID = [id number] for BERNADINE RESTREPO [id number] 14:50:11 Test Item Value Reference Range Interpretation Comments PROCALCITONIN (BEAKER) (test code 5.78 ng/mL <0.05 H = 3036) SEPSIS RISK (ng/mL)Low: 0.05-0.50Intermediate: 0.51-2.00High: >=2.01Venous doppler arms [id number] 12:23:42Ejection FractionSLEH ECHO HEARTLAB MKCKESSON [facility] bilateral 2021-08-23 12:23:42Ejection FractionSLEH ECHO HEARTLAB MKCKESSON [facility] do[facility] arms [id number] 12:23:42Ejection FractionSLEH ECHO HEARTLAB MKCKESSON [facility] do[facility] arms [id number] 12:23:42Ejection FractionSLEH ECHO HEARTLAB MKCKESSON [facility] do[facility] arms bilateral 2021-08-23 12:23:42Ejection FractionSLEH ECHO HEARTLAB MKCKESSON [facility]byterianAPTT2022-05-31 12:08:56 Test Item Value Reference Range Interpretation Comments PARTIAL THROMBOPLASTIN TIME 29.7 seconds 22.5-36.0 (BEAKER) (test code = 760) POCT-GLUCOSE [id number] 12:03:43 Test Item Value Reference Range Interpretation Comments POC-GLUCOSE METER 184 mg/dL 70-110 H : TESTED A T [facility] 6720 ([facility]) (test code = [place], 1538) 27033: Medical Numerical Control Operator/Techni daniel ID = [id number] for BERNADINE RESTREPO RAD, CHEST, 1 VIEW, NON [id number] 11:17:00Reason for exam:- >repositioning ettShould this be performed at the bedside?->Yes [facility] : 1965 Sex: FFINAL REPORT [...] Benítez Verified Date/Time: 08/23/2021 11:17:41 [facility] , CHEST, 1 VIEW, NON [id number] 09:20:00Reason for exam:->Mechanical VentilationShould this be performed at the bedside?->Yes [facility] : 1965 Sex: [...] [place] Verified Date/Time: 08/23/2021 09:20:01 Reading Location: [facility] Radiology Reading Room (CELLAVISION MANUAL DIFF)2021-08-23 06:42:11 [...] CONCENTRATION Adequate (CELLAVISION)(BEAKER) (test code = 3438) Medical Numerical Control Operator ID - Marin comments: Slide comments:CBC W/PLT COUNT & AUTO [id number] 06:42:10 Test Item Value Reference Range Interpretation [...] 0-0 (BEAKER) (test code = 413) POCT-GLUCOSE [id number] 05:25:06 Test Item Value Reference Range Interpretation Comments POC-GLUCOSE METER 233 mg/dL 70-110 H : TESTED A T [facility] 6720 (BEAKER) (test code = ANIL Brown [facility], 1538) 43570: Medical Numerical Control Operator/Techni daniel ID = [id number] for Raúl nicolasaJaquelin BASIC METABOLIC [id number] 04:30:11 Test Item Value Reference Range Interpretation [...] S NOT APPLICABLE FOR DIALYSIS PATIEN TS. Medical Numerical Control Operator ID - [id number] 04:18:30 Test Item Value Reference Range Interpretation Comments MAGNESIUM (BEAKER) (test code = 1.8 mg/dL 1.6-2.6 627) Medical Numerical Control Operator ID - [id number] 04:18:30 Test Item Value Reference Range Interpretation Comments PHOSPHORUS (BEAKER) (test code = 1.7 mg/dL 2.3-4.7 L 604) Medical Numerical Control Operator ID - DBBLOOD GAS, [id number] 04:06:03 Test Item Value Reference Range Interpretation [...] (BEAKER) (test code = 1819) 30.0 POCT-GLUCOSE [id number] 00:35:37 Test Item Value Reference Range Interpretation Comments POC-GLUCOSE METER 247 mg/dL 70-110 H : TESTED A T [facility] 6720 (BEAKER) (test code = [employer] [facility], 1538) 11918: Medical Numerical Control Operator/Techni daniel ID = [id number] for Jaquelin Burns [id number] 17:21:29 Test Item Value Reference Range Interpretation Comments ALBUMIN (BEAKER) (test code = 1145) 2.2 g/dL 3.5-5.0 L Medical Numerical Control Operator ID - CALVIN WPOCT-GLUCOSE [id number] 17:10:59 Test Item Value Reference Range Interpretation Comments POC-GLUCOSE METER 200 mg/dL 70-110 H : TESTED A T [facility] 6720 (BEAKER) (test code = [facility] [employer] [facility], 1538) 10554: Medical Numerical Control Operator/Techni daniel ID = [id number] for MICHAEL GARCIA RAD, CHEST, 1 VIEW, NON [id number] 07:38:00Reason for exam:->Mechanical VentilationShould this be performed at the bedside?->Yes [facility] : 1965 Sex: [...] Ramirez Verified Date/Time: 08/22/2021 07:38:56 Reading Location: [address] Body Reading Room (CELLAVISION MANUAL DIFF)2021-08-22 [...] CONCENTRATION Adequate (CELLAVISION)(BEAKER) (test code = 3438) Medical Numerical Control Operator ID - Katherine OverholtUser comments: Slide comments:CBC W/PLT COUNT & AUTO [id number] 07:17:14 Test Item Value Reference Range Interpretation [...] 0-0 (BEAKER) (test code = 413) POCT-GLUCOSE [id number] 05:49:24 Test Item Value Reference Range Interpretation Comments POC-GLUCOSE METER 171 mg/dL 70-110 H : TESTED A T [facility] (BEAKER) (test code = [place], 1538) 18677: Medical Numerical Control Operator/Techni daniel ID = [id number] for Zoe Lofton BASIC METABOLIC [id number] 05:17:50 Test Item Value Reference Range Interpretation [...] S NOT APPLICABLE FOR DIALYSIS PATIEN TS. Medical Numerical Control Operator ID - [id number] 05:00:51 Test Item Value Reference Range Interpretation Comments MAGNESIUM (BEAKER) 1.9 mg/dL 1.6-2.6 Specimen slightly (test code = 627) hemolyzed Medical Numerical Control Operator ID - DBOperator ID - [id number] 05:00:51 Test Item Value Reference Range Interpretation Comments PHOSPHORUS (BEAKER) 3.3 mg/dL 2.3-4.7 Specimen slightly (test code = 604) hemolyzed Medical Numerical Control Operator ID - DBBLOOD GAS, [id number] 04:29:31 Test Item Value Reference Range Interpretation [...] (BEAKER) (test code = 1819) 30.0 POCT-GLUCOSE [id number] 23:59:55 Test Item Value Reference Range Interpretation Comments POC-GLUCOSE METER 187 mg/dL 70-110 H : TESTED A T [facility] 6720 (BEAKER) (test code = [place], 1538) 56459: Medical Numerical Control Operator/Techni daniel ID = [id number] for Zoe Lofton Protein, [id number] 17:36:26 Test Item Value Reference Range Interpretation Comments Protein, CSF (test code = 13 mg/dL 15-45 L 2880-3) CECELIA (test code = CECELIA) Medical Numerical Control Operator ID - [id number] Lab Interpretation (test Abnormal code = 81509-4) [facility] CenterProtein, [id number] 17:36:26 Test Item Value Reference Range Interpretation Comments Protein, CSF (test code = 13 mg/dL 15-45 L 2880-3) CECELIA (test code = CECELIA) Medical Numerical Control Operator ID - [id number] Lab Interpretation (test Abnormal code = 65727-7) [facility] CenterProtein, [id number] 17:36:26 Test Item Value Reference Range Interpretation Comments Protein, CSF (test code = 13 mg/dL 15-45 L 2880-3) CECELIA (test code = CECELIA) Medical Numerical Control Operator ID - [id number] Lab Interpretation (test Abnormal code = 35899-0) [facility] CenterProtein, [id number] 17:36:26 Test Item Value Reference Range Interpretation Comments Protein, CSF (test code = 13 mg/dL 15-45 L 2880-3) CECELIA (test code = CECELIA) Medical Numerical Control Operator ID - [id number] Lab Interpretation (test Abnormal code = 46537-8) [facility] CenterProtein, [id number] 17:36:26 Test Item Value Reference Range Interpretation Comments Protein, CSF (test code = 13 mg/dL 15-45 L 2880-3) CECELIA (test code = CECELIA) Medical Numerical Control Operator ID - [id number] Lab Interpretation (test Abnormal code = 85899-8) [facility] CenterPROTEIN, [id number] 17:36:26 Test Item Value Reference Range Interpretation Comments PROTEIN CSF (BEAKER) (test code = 13 mg/dL 15-45 L 378) Medical Numerical Control Operator ID - [id number] METABOLIC [id number] 16:48:28 Test Item Value Reference Range Interpretation [...] 8.4-10.2 L (test code = 697) EGFR (BEPARVIZ) (test 9 mL/min/1.73 ESTIMAT ED GFR IS code = 1092) sq m NOT ACCURATE CREATININE CLEARANCE IN PREDICTING GLOMERULAR FILTRATION RATE . ESTIMATED GFR I S NOT APPLICABLE FOR DIALYSIS PATIEN Medical Numerical Control Operator JAZLYN SIMPSON [id number] 16:41:27 Test Item Value Reference Range Interpretation Comments PHOSPHORUS (CARLY) 3.7 mg/dL 2.3-4.7 Specimen slightly (test code = 604) hemolyzed Medical Numerical Control Operator ID Chris SIMPSON WMENINGITIS/ENCEPHALITIS [id number] 16:26:56 Test Item Value Reference Range Interpretation Comments E COLI K1 (test code = Not detected Not detected 66385-9) HAEMOPHILUS INFLUENZAE Not detected Not detected (test code = 20080-3) LISTERIA MONOCYTOGENES Not detected Not detected (test code = 31899-3) NEISSERIA MENINGITIDIS Not detected Not detected (test code = 88700-7) STREPTOCOCCUS Not detected Not detected AGALACTIAE (test code = 13344-0) STREPTOCOCCUS Not detected Not detected PNEUMONIAE (test code = 18901-2) Cytomegalovirus (CMV) Not detected Not detected (test code = 21995-6) ENTEROVIRUS (test code Not detected Not detected = 79744-5) Human herpesvirus 6 Not detected Not detected (HHV-6) (test code = 14372-2) Herpes simplex virus Not detected Not detected 1(HSV-1) (test code = 29134-6) HERPES SIMPLEX VIRUS Not detected Not detected 2(HSV-2) (test code = 15253-8) Human parechovirus Not detected Not detected (test code = 65515-7) Varicella-zoster virus Not detected Not detected (VZV) (test code = 92106-7) Cryptococcus Not detected Not detected neoformans/gattii (test code = 32983-8) CECELIA (test code = CECELIA) The performance [...] required. This sample was tested at the [facility] Molecular Diagnostics Laboratory using the Embibe Meningitis Encephalitis Panel. It is FDA cleared and has been verified and approved by the [facility] Molecular Diagnostics Laboratory for clinical use. This laboratory is CLIA-certified and [employer] (CAP)-accredited to perform high complexity testing. Lab Interpretation Normal (test code = 47675-5) [facility] CenterMENINGITIS/ENCEPHALITIS [id number] 16:26:56 Test Item Value Reference Range Interpretation Comments E COLI K1 (test code = Not detected Not detected 77447-5) HAEMOPHILUS INFLUENZAE Not detected Not detected (test code = 88591-0) LISTERIA MONOCYTOGENES Not detected Not detected (test code = 82774-5) NEISSERIA MENINGITIDIS Not detected Not detected (test code = 86138-5) STREPTOCOCCUS Not detected Not detected AGALACTIAE (test code = 10616-0) STREPTOCOCCUS Not detected Not detected PNEUMONIAE (test code = 23046-3) Cytomegalovirus (CMV) Not detected Not detected (test code = 04403-9) ENTEROVIRUS (test code Not detected Not detected = 15863-6) Human herpesvirus 6 Not detected Not detected (HHV-6) (test code = 95731-9) Herpes simplex virus Not detected Not detected 1(HSV-1) (test code = 91953-0) HERPES SIMPLEX VIRUS Not detected Not detected 2(HSV-2) (test code = 88088-2) Human parechovirus Not detected Not detected (test code = 52682-7) Varicella-zoster virus Not detected Not detected (VZV) (test code = 05940-4) Cryptococcus Not detected Not detected neoformans/gattii (test code = 82095-8) CECELIA (test code = CECELIA) The performance [...] required. This sample was tested at the [facility] Molecular Diagnostics Laboratory using the TweetworksArray Meningitis Encephalitis Panel. It is FDA cleared and has been verified and approved by the [facility] Molecular Diagnostics Laboratory for clinical use. This laboratory is CLIA-certified and [employer] (CAP)-accredited to perform high complexity testing. Lab Interpretation Normal (test code = 58961-5) [facility] CenterMENINGITIS/ENCEPHALITIS [id number] 16:26:56 Test Item Value Reference Range Interpretation Comments E COLI K1 (test code = Not detected Not detected 63944-8) HAEMOPHILUS INFLUENZAE Not detected Not detected (test code = 51828-5) LISTERIA MONOCYTOGENES Not detected Not detected (test code = 63769-0) NEISSERIA MENINGITIDIS Not detected Not detected (test code = 84396-5) STREPTOCOCCUS Not detected Not detected AGALACTIAE (test code = 74530-1) STREPTOCOCCUS Not detected Not detected PNEUMONIAE (test code = 97718-1) Cytomegalovirus (CMV) Not detected Not detected (test code = 22403-9) ENTEROVIRUS (test code Not detected Not detected = 65981-9) Human herpesvirus 6 Not detected Not detected (HHV-6) (test code = 56646-8) Herpes simplex virus Not detected Not detected 1(HSV-1) (test code = 87282-7) HERPES SIMPLEX VIRUS Not detected Not detected 2(HSV-2) (test code = 04309-4) Human parechovirus Not detected Not detected (test code = 33708-9) Varicella-zoster virus Not detected Not detected (VZV) (test code = 40432-7) Cryptococcus Not detected Not detected neoformans/gattii (test code = 74720-9) CECELIA (test code = CECELIA) The performance [...] required. This sample was tested at the [facility] Molecular Diagnostics Laboratory using the adQ FilmArray Meningitis Encephalitis Panel. It is FDA cleared and has been verified and approved by the [facility] Molecular Diagnostics Laboratory for clinical use. This laboratory is CLIA-certified and [employer] (CAP)-accredited to perform high complexity testing. Lab Interpretation Normal (test code = 64460-2) [facility] CenterMENINGITIS/ENCEPHALITIS [id number] 16:26:56 Test Item Value Reference Range Interpretation Comments E COLI K1 (test code = Not detected Not detected 63518-4) HAEMOPHILUS INFLUENZAE Not detected Not detected (test code = 06658-8) LISTERIA MONOCYTOGENES Not detected Not detected (test code = 47163-3) NEISSERIA MENINGITIDIS Not detected Not detected (test code = 64064-1) STREPTOCOCCUS Not detected Not detected AGALACTIAE (test code = 80961-6) STREPTOCOCCUS Not detected Not detected PNEUMONIAE (test code = 16987-1) Cytomegalovirus (CMV) Not detected Not detected (test code = 99576-3) ENTEROVIRUS (test code Not detected Not detected = 26182-6) Human herpesvirus 6 Not detected Not detected (HHV-6) (test code = 47499-9) Herpes simplex virus Not detected Not detected 1(HSV-1) (test code = 75915-7) HERPES SIMPLEX VIRUS Not detected Not detected 2(HSV-2) (test code = 72526-3) Human parechovirus Not detected Not detected (test code = 03084-9) Varicella-zoster virus Not detected Not detected (VZV) (test code = 36500-6) Cryptococcus Not detected Not detected neoformans/gattii (test code = 50689-3) CECELIA (test code = CECELIA) The performance [...] required. This sample was tested at the [facility] Molecular Diagnostics Laboratory using the TweetworksArray Meningitis Encephalitis Panel. It is FDA cleared and has been verified and approved by the [facility] Molecular Diagnostics Laboratory for clinical use. This laboratory is CLIA-certified and [employer] (CAP)-accredited to perform high complexity testing. Lab Interpretation Normal (test code = 82135-4) [facility] CenterMENINGITIS/ENCEPHALITIS [id number] 16:26:56 Test Item Value Reference Range Interpretation Comments E COLI K1 (test code = Not detected Not detected 05125-3) HAEMOPHILUS INFLUENZAE Not detected Not detected (test code = 30334-9) LISTERIA MONOCYTOGENES Not detected Not detected (test code = 47001-0) NEISSERIA MENINGITIDIS Not detected Not detected (test code = 53699-1) STREPTOCOCCUS Not detected Not detected AGALACTIAE (test code = 88026-6) STREPTOCOCCUS Not detected Not detected PNEUMONIAE (test code = 26491-3) Cytomegalovirus (CMV) Not detected Not detected (test code = 48686-2) ENTEROVIRUS (test code Not detected Not detected = 19220-9) Human herpesvirus 6 Not detected Not detected (HHV-6) (test code = 71059-8) Herpes simplex virus Not detected Not detected 1(HSV-1) (test code = 16341-3) HERPES SIMPLEX VIRUS Not detected Not detected 2(HSV-2) (test code = 33569-0) Human parechovirus Not detected Not detected (test code = 24761-3) Varicella-zoster virus Not detected Not detected (VZV) (test code = 47982-3) Cryptococcus Not detected Not detected neoformans/gattii (test code = 54219-6) CECELIA (test code = CECELIA) The performance [...] required. This sample was tested at the [facility] Molecular Diagnostics Laboratory using the Embibe Meningitis Encephalitis Panel. It is FDA cleared and has been verified and approved by the [facility] Molecular Diagnostics Laboratory for clinical use. This laboratory is CLIA-certified and [employer] (CAP)-accredited to perform high complexity testing. Lab Interpretation Normal (test code = 63004-8) [facility] CenterMENINGITIS/ENCEPHALITIS [id number] 16:26:56 Test Item Value Reference Range Interpretation Comments ESCHERICHIA COLI K1 (test code = Not detected Not detected 20151225) HAEMOPHILUS INFLUENZAE (test Not detected Not detected code = 20151226) LISTERIA MONOCYTOGENES (test Not detected Not detected code = 3229448) NEISSERIA MENINGITIDIS (test Not detected Not detected code = 9187954) STREPTOCOCCUS AGALACTIAE (test Not detected Not detected code = 2436706) STREPTOCOCCUS PNEUMONIAE (test Not detected Not detected code = 2827841) CYTOMEGALOVIRUS (CMV) (test code Not detected Not detected = 6432775) ENTEROVIRUS (test code = Not detected Not detected 7944585) HUMAN HERPESVIRUS 6 (HHV-6) Not detected Not detected (test code = 0644734) HERPES SIMPLEX VIRUS 1(HSV-1) Not detected Not detected (test code = 4051060) HERPES SIMPLEX VIRUS 2(HSV-2) Not detected Not detected (test code = 3583290) HUMAN PARECHOVIRUS (test code = Not detected Not detected 20160126) VARICELLA-ZOSTER VIRUS (VZV) Not detected Not detected (test code = 7631965) CRYPTOCOCCUS NEOFORMANS/GATTII Not detected Not detected (test code = 20160128) The performance of this test has not [...] required. This sample was tested at the [facility] using the TweetworksArray MeningitisEncephalitis Panel. It is FDA cleared and has been verified and approved by the [facility] for clinical use. This laboratory is CLIA-certified and [employer] (CAP)-accredited to perform high complexity testing.CSF cell count with nkrwnkppcgiy1705-41-92 16:03:36 Test Item Value Reference Range Interpretation Comments Appearance (test Clear Clear code = 73849-1) Color (test code = Colorless Colorless 98228-7) RBCs (test code = 0 See_Comment [Automate d message] 792-2) The system [employer] generated this result transmit sally reference range : 0 - 5 /cu mm. The reference range was not used to interpret this result as normal/abnormal . WBCs (test code = 0 See_Comment [Automate d message] 806-0) The system [employer] generated this result transmit sally reference range : <=5 /cu mm. The reference range was not used to interpret this result as normal/abnormal . RBCs Fresh? (test Not Applicable code = 19850-1) # of Cells Diff'd 0 (test code = 71760-2) Tube Number (test 1 code = 2677) [facility] ueqtjbfarktj7666-60-58 16:03:36 Test Item Value Reference Range Interpretation Comments Appearance (test Clear Clear code = 18742-3) Color (test code = Colorless Colorless 62655-3) RBCs (test code = 0 See_Comment [Automate d message] 792-2) The system [employer] generated this result transmit sally reference range : 0 - 5 /cu mm. The reference range was not used to interpret this result as normal/abnormal . WBCs (test code = 0 See_Comment [Automate d message] 806-0) The system [employer] generated this result transmit sally reference range : <=5 /cu mm. The reference range was not used to interpret this result as normal/abnormal . RBCs Fresh? (test Not Applicable code = 79248-8) # of Cells Diff'd 0 (test code = 73927-9) Tube Number (test 1 code = 2677) [facility] cell count with dxtnwqsqbldf1180-73-55 16:03:36 Test Item Value Reference Range Interpretation Comments Appearance (test Clear Clear code = 54871-2) Color (test code = Colorless Colorless 58072-7) RBCs (test code = 0 See_Comment [Automate d message] 792-2) The system [employer] generated this result transmit sally reference range : 0 - 5 /cu mm. The reference range was not used to interpret this result as normal/abnormal . WBCs (test code = 0 See_Comment [Automate d message] 806-0) The system [employer] generated this result transmit sally reference range : <=5 /cu mm. The reference range was not used to interpret this result as normal/abnormal . RBCs Fresh? (test Not Applicable code = 77895-8) # of Cells Diff'd 0 (test code = 14089-4) Tube Number (test 1 code = 2677) [facility] cell count with qvzndqepkhqx8243-01-45 16:03:36 Test Item Value Reference Range Interpretation Comments Appearance (test Clear Clear code = 99689-7) Color (test code = Colorless Colorless 19989-8) RBCs (test code = 0 See_Comment [Automate d message] 792-2) The system [employer] generated this result transmit sally reference range : 0 - 5 /cu mm. The reference range was not used to interpret this result as normal/abnormal . WBCs (test code = 0 See_Comment [Automate d message] 806-0) The system [employer] generated this result transmit sally reference range : <=5 /cu mm. The reference range was not used to interpret this result as normal/abnormal . RBCs Fresh? (test Not Applicable code = 02595-7) # of Cells Diff'd 0 (test code = 07952-6) Tube Number (test 1 code = 2677) [facility] pdqjwxogoiev Test Item Value Reference Range Interpretation Comments Appearance (test Clear Clear code = 70721-9) Color (test code = Colorless Colorless 68219-7) RBCs (test code = 0 See_Comment [Automate d message] 792-2) The system [employer] generated this result transmit sally reference range : 0 - 5 /cu mm. The reference range was not used to interpret this result as normal/abnormal . WBCs (test code = 0 See_Comment [Automate d message] 806-0) The system [employer] generated this result transmit sally reference range : <=5 /cu mm. The reference range was not used to interpret this result as normal/abnormal . RBCs Fresh? (test Not Applicable code = 74618-9) # of Cells Diff'd 0 (test code = 51677-7) Tube Number (test 1 code = 2677) [facility] W/OTAIEQNTQHGH6911-01-97 16:03:36 Test Item Value Reference Range Interpretation [...] 1 (BEAKER) (test code = 2678) Glucose, [id number] 14:55:50 Test Item Value Reference Range Interpretation Comments Glucose, CSF (test code = 68 mg/dL 40-70 2342-4) CECELIA (test code = CECELIA) Medical Numerical Control Operator ID - CALVIN W Lab Interpretation (test Normal code = 83035-7) [facility], [id number] 14:55:50 Test Item Value Reference Range Interpretation Comments Glucose, CSF (test code = 68 mg/dL 40-70 2342-4) CECELIA (test code = CECELIA) Medical Numerical Control Operator ID Chris SIMPSON W Lab Interpretation (test Normal code = 90785-6) [facility], [id number] 14:55:50 Test Item Value Reference Range Interpretation Comments Glucose, CSF (test code = 68 mg/dL 40-70 2342-4) CECELIA (test code = CECELIA) Medical Numerical Control Operator ID Chris SIMPSON W Lab Interpretation (test Normal code = 67434-4) [facility], [id number] 14:55:50 Test Item Value Reference Range Interpretation Comments Glucose, CSF (test code = 68 mg/dL 40-70 2342-4) CECELIA (test code = CECELIA) Medical Numerical Control Operator ID - CALVIN W Lab Interpretation (test Normal code = 53509-3) [facility], [id number] 14:55:50 Test Item Value Reference Range Interpretation Comments Glucose, CSF (test code = 68 mg/dL 40-70 2342-4) CECELIA (test code = CECELIA) Medical Numerical Control Operator ID Chris SIMPSON W Lab Interpretation (test Normal code = 69858-4) [facility] Center[facility]SE, [id number] 14:55:50 Test Item Value Reference Range Interpretation Comments GLUCOSE CSF (BEAKER) (test code = 68 mg/dL 40-70 406) Medical Numerical Control Operator JAZLYN EUCEDAHENYTOIN LEVEL, [id number] 13:12:52 Test Item Value Reference Range Interpretation Comments PHENYTOIN (DILANTIN) (BEAKER) 14.6 ug/mL 10.0-20.0 (test code = 605) Medical Numerical Control Operator ID Chris SIMPSON [id number] 13:10:45 Test Item Value Reference Range Interpretation Comments PHOSPHORUS (BEAKER) (test code = 1.3 mg/dL 2.3-4.7 LL 604) Medical Numerical Control Operator ID - CALVIN WBASIC METABOLIC [id number] 13:10:24 Test Item Value Reference Range Interpretation Comments SODIUM (BEAKER) 142 meq/L 136-145 (test code = 381) POTASSIUM (BEAKER) 3.4 meq/L 3.5-5.1 L (test code = 379) CHLORIDE (BEAKER) 110 meq/L 98-107 H (test code = 382) CO2 (BEAKER) (test 25 meq/L - code = 355) BLOOD UREA NITROGEN 13 [...] S NOT APPLICABLE FOR DIALYSIS PATIEN TS. Medical Numerical Control Operator ID - CALVIN [id number] 13:08:12 Test Item Value Reference Range Interpretation Comments MAGNESIUM (BEAKER) (test code = 1.9 mg/dL 1.6-2.6 627) Medical Numerical Control Operator ID - CALVIN WHEMOGLOBIN AND [id number] 12:47:46 Test Item Value Reference Range Interpretation Comments HEMOGLOBIN (BEAKER) (test code = 7.5 GM/DL 11.2-15.7 L 410) HEMATOCRIT (BEAKER) (test code = 22.3 % 34.1-44.9 L 411) CBC W/PLT COUNT & AUTO [id number] 12:47:45 Test Item Value Reference Range Interpretation [...] = 2801) RAD, CHEST, 1 VIEW, NON [id number] 09:25:00Reason for exam:->Mechanical VentilationShould this be performed at the bedside?->Yes [facility] CORON[facility] : 1965 Sex: FFINAL REPORT Chest, 1 [...] Thayer Verified Date/Time: 08/21/2021 09:25:13 Reading Location: [address] Consult Reading Room POCT- GLUCOSE [id number] 06:30:02 Test Item Value Reference Range Interpretation Comments POC-GLUCOSE METER 89 mg/dL 70-110 : TESTED A T [facility] 6720 (BEAKER) (test code = ANIL DYE ID, 1538) [address]: Medical Numerical Control Operator/Techni daniel ID = [id number] for MIGUEL VALENCIA BLOOD GAS, [id number] 05:51:06 Test Item Value Reference Range Interpretation [...] FIO2 (BEAKER) (test code = 1819) 30.0 [id number] 04:38:02 Test Item Value Reference Range Interpretation Comments PHOSPHORUS (BEAKER) (test code = 0.9 mg/dL 2.3-4.7 LL 604) Medical Numerical Control Operator ID Chris Jacoboator JAZLYN SIMPSON WBASIC METABOLIC [id number] 04:08:48 Test Item Value Reference Range Interpretation [...] S NOT APPLICABLE FOR DIALYSIS PATIEN TS. Medical Numerical Control Operator ID Chris SIMPSON [id number] 04:03:45 Test Item Value Reference Range Interpretation Comments MAGNESIUM (BEAKER) (test code = 1.8 mg/dL 1.6-2.6 627) Medical Numerical Control Operator ID Chris SIMPSON WCBC W/PLT COUNT & AUTO [id number] 03:49:05 Test Item Value Reference Range Interpretation [...] PERCENT (BEAKER) (test code = 2801) POCT-GLUCOSE [id number] 00:31:54 Test Item Value Reference Range Interpretation Comments POC-GLUCOSE METER 96 mg/dL 70-110 : TESTED Mikala T [facility] 6720 (BEAKER) (test code = ANIL DYE ID, 1538) 90881: Medical Numerical Control Operator/Techni daniel ID = [id number] for MIGUEL VALENCIA POCT-GLUCOSE [id number] 22:33:19 Test Item Value Reference Range Interpretation Comments POC-GLUCOSE METER 103 mg/dL 70-110 : TESTED A T [facility] 6720 (CARLY) (test code = ANIL Brown [facility], 1538) [address]: Medical Numerical Control Operator/Techni daniel ID = [id number] for MIGUEL VILLANUEVA POCT-GLUCOSE [id number] 17:39:03 Test Item Value Reference Range Interpretation Comments POC-GLUCOSE METER 65 mg/dL 70-110 L : Notified RN/MD: TESTED (CARLY) (test code = AT [facility] 67[address] 1538) [facility], 770 30: Medical Numerical Control Operator/Techni daniel ID = [id number] for KWABENA MENDOZA PHENYTOIN LEVEL, [id number] 14:59:35 Test Item Value Reference Range Interpretation Comments PHENYTOIN (DILANTIN) (CARLY) 20.6 ug/mL 10.0-20.0 H (test code = 605) Medical Numerical Control Operator ID - AC FLORES, ABDOMEN/KUB, 1 VIEW [id number] 12:59:00Reason for exam:->Corpak placement [facility] : 1965 Sex: FFINAL REPORT [...] Thayer Verified Date/Time: 08/20/2021 12:59:34 Reading Location: [address] Consult Reading Room POCT-GLUCOSE METER 2021-08-20 12:16:21 Test Item Value Reference Range Interpretation Comments POC-GLUCOSE METER 97 mg/dL 70-110 : TESTED A T [facility] 6720 (BEAKER) (test code = [facility], [facility]8) [address]: Medical Numerical Control Operator/Techni daniel ID = [id number] for KWABENA MENDOZA POCT-GLUCOSE [id number] 11:16:00 Test Item Value Reference Range Interpretation Comments POC-GLUCOSE METER 56 mg/dL 70-110 L : TESTED A T [facility] 6720 (BEAKER) (test code = [facility], [facility]8) [address]: Medical Numerical Control Operator/Techni daniel ID = [id number] for MICHAEL MENDIOLA POCT-GLUCOSE [id number] 07:13:57 Test Item Value Reference Range Interpretation Comments POC-GLUCOSE METER 103 mg/dL 70-110 : TESTED A T [facility] 6720 (BEAKER) (test code = [facility], 1538) [address]: Medical Numerical Control Operator/Techni daniel ID = [id number] for MIGUEL VILLANUEVA POCT-GLUCOSE [id number] 06:22:57 Test Item Value Reference Range Interpretation Comments POC-GLUCOSE METER 52 mg/dL 70-110 L : TESTED A T [facility] 6720 (BEAKER) (test code = [facility], 1538) [address]: Medical Numerical Control Operator/Techni daniel ID = [id number] for GEORGE VALENCIAINE BASIC METABOLIC [id number] 05:20:43 Test Item Value Reference Range Interpretation [...] S NOT APPLICABLE FOR DIALYSIS PATIEN TS. Medical Numerical Control Operator ID - BANDAR [id number] 05:13:27 Test Item Value Reference Range Interpretation Comments MAGNESIUM (BEAKER) (test code = 1.9 mg/dL 1.6-2.6 627) Medical Numerical Control Operator ID - BANDAR [id number] 05:13:27 Test Item Value Reference Range Interpretation Comments PHOSPHORUS (BEAKER) (test code = 2.5 mg/dL 2.3-4.7 604) Medical Numerical Control Operator ID - BANDAR MPTH, [id number] 05:10:33 Test Item Value Reference Range Interpretation Comments PARATHYROID HORMONE INTACT 172.7 pg/mL 8.5-72.5 H (BEAKER) (test code = 577) Medical Numerical Control Operator ID - BANDAR MBLOOD GAS, [id number] 04:57:07 Test Item Value Reference Range Interpretation [...] 1819) 30.0 CBC W/PLT COUNT & AUTO [id number] 04:52:45 Test Item Value Reference Range Interpretation [...] PERCENT (BEAKER) (test code = 2801) POCT-GLUCOSE [id number] 19:16:36 Test Item Value Reference Range Interpretation Comments POC-GLUCOSE METER 87 mg/dL 70-110 : TESTED A T [facility] 6720 (BEAKER) (test code = ANIL Brown [place], 1538) [address]: Medical Numerical Control Operator/Techni daniel ID = [id number] for Step toe, Mary POCT-GLUCOSE [id number] 12:02:52 Test Item Value Reference Range Interpretation Comments POC-GLUCOSE METER 123 mg/dL 70-110 H : TESTED A T [facility] (BEAKER) (test code [address], = 1538) [facility] 77 478: Medical Numerical Control Operator/Techni daniel ID = [id number] for Ali, Rosa RAD, ABDOMEN/KUB 1 VIEW [id number] 11:20:00Reason for exam:->Enteric tube placement verification [facility] : 1965 Sex: FFINAL REPORT [...] MDReport Verified Date/Time: 08/19/2021 11:20:09 Reading Location: [facility] Radiology Reading Room RAD, CHEST, 1 VIEW, NON [id number] 11:20:00Reason for exam:->[facility] : 1965 Sex: FFINAL REPORT [...] MDReport Verified Date/Time: 08/19/2021 11:20:09 Reading Location: [facility] Radiology Reading Room SARS-CoV2/RT-PCR (Asymptomatic ONLY)2021-08-19 10:42:27 Test Item Value Reference Interpretation Comments Range SARS-COV2/RT-PCR Negative Negative The SARS-Co V-2 (test code = target nucleic 73565-7) acids are not detected in thi s [...] om SARS-CoV-2 in a [facility]oph[facility] s suspected of COVID-19 by [...] revoked sooner. Fact Sheet for Healthcare Providers: https://www.[employer]/Documents/Xp ert%20Xpress%20SAR S%20CoV-2/Fact%20S heets/302-3802%20S ARS-COV-2%20HEALTH CARE%20PROVIDERS%2 0FACT%20SHEET.pdf Fact Sheet for Healthcare Patients: https://www.[employer]/Documents/Xp ert%20Xpress%20SAR S%20CoV-2/Fact%20S heets/302-3801%20S ARS-COV-2%20PATIEN T%20FACT%20SHEET.p df Lab Interpretation Normal (test code = 29374-5) [facility]21-[facility]-19 10:42:27 Test Item Value Reference Interpretation Comments Range SARS-COV2/RT-PCR Negative Negative The SARS-Co V-2 (test code = target nucleic 32414-9) acids are not detected in thi s [...] revoked sooner. Fact Sheet for Healthcare Providers: https://www.[employer]/Documents/Xp ert%20Xpress%20SAR S%20CoV-2/Fact%20S heets/302-3802%20S ARS-COV-2%20HEALTH CARE%20PROVIDERS%2 0FACT%20SHEET.pdf Fact Sheet for Healthcare Patients: https://www.[employer]/Documents/Xp ert%20Xpress%20SAR S%20CoV-2/Fact%20S heets/302-3801%20S ARS-COV-2%20PATIEN T%20FACT%20SHEET.p df Lab Interpretation Normal (test code = 24583-5) [facility])2021-08-19 10:42:27 Test Item Value Reference Range Interpretation Comments SARS-COV2/RT-PCR Negative Negative The SARS-Co V-2 target (test code = nucleic acids a re not 9378497) detected in thi s specimen. Negative result [...] revoked sooner. Fact Sheet for Healthcare Providers: https://www.[employer]/Documents/Xpert%20Xpress%20SARS%20CoV-2/Fact%20Sheets/3023802%31TDKB-YSQ-9%20 HEALTHCARE%20PROVIDERS%20FACT%20SHEET.pdf Fact Sheet for Healthcare Patients: https://www.[employer]/Documents/Xpert%20Xp ress%20SARS%20CoV-2/Fact%20Sheets/3023801%42HORK-XQP-4%20PATIENT%20FACT%20SHEET .pdfBLOOD GAS, [id number] 09:40:43 Test Item Value Reference Range Interpretation [...] (BEAKER) (test code = 1819) 100.0 POCT-GLUCOSE [id number] 08:21:17 Test Item Value Reference Range Interpretation Comments POC-GLUCOSE METER 125 mg/dL 70-110 H : TESTED A T [facility] [address] (BEAKER) (test code [address], = 1538) [place] [address]: Medical Numerical Control Operator/Techni daniel ID = [id number] for Ali, Rosa POCT-GLUCOSE [id number] 06:20:10 Test Item Value Reference Range Interpretation Comments POC-GLUCOSE METER 102 mg/dL 70-110 : TESTED A T [facility] (BEAKER) (test code [address], = 1538) [place] [address]: Medical Numerical Control Operator/Techni daniel ID = [id number] for Garc ia, Mi BASIC METABOLIC [id number] 04:52:02 Test Item Value Reference Range Interpretation [...] S NOT APPLICABLE FOR DIALYSIS PATIEN TS. Medical Numerical Control Operator ID - [id number] ID - tnfq01Vuxjcsjr ID - xife61Wggldzty ID - gslt92Elzxkjah ID - nuxc95Rpzealkh ID - cuyv73Lqvekfyb ID - zmbe05Olmfrhtm ID - scgl56Gvlbvqat ID - itte77Twapxipr ID - twkq17Nattdkza ID - fxsp25Qarisrbt ID - kjnj33Kwjjtzwp ID - [id number] W/PLT COUNT & AUTO [id number] 04:27:22 Test Item Value Reference Range Interpretation [...] PERCENT (BEAKER) (test code = 2801) POCT-GLUCOSE [id number] 21:18:21 Test Item Value Reference Range Interpretation Comments POC-GLUCOSE METER 71 mg/dL 70-110 : TESTED A T [facility] (BEAKER) (test code = [address], 1538) [facility] 77 [address]: Medical Numerical Control Operator/Techni daniel ID = [id number] for Eduardo joy Maggie [id number] 18:25:36 Test Item Value Reference Range Interpretation Comments MAGNESIUM (BEAKER) (test code = 1.8 mg/dL 1.5-3.0 627) Medical Numerical Control Operator ID - [id number], BRAIN, WITHOUT [id number] 16:05:00Unlisted Reason for Exam - Click Yes and Enter Reason Below->No [facility] : 1965 Sex: [...] Verified Date/Time: 08/18/2021 16:05:59 MR, BRAIN, WITHOUT [id number] 15:48:00Unlisted Reason for Exam - Click Yes and Enter Reason Below->NoDoes the patient have an implantedelectronic device?->No [facility] : 1965 Sex: [...] Benítez MDReport Verified Date/Time: 08/18/2021 15:48:54 POCT-GLUCOSE [id number] 10:47:44 Test Item Value Reference Range Interpretation Comments POC-GLUCOSE METER 87 mg/dL 70-110 : TESTED A T [facility] (BEAKER) (test code = [address], 1538) [facility] 77 [address]: Medical Numerical Control Operator/Techni daniel ID = [id number] for Yanni Brooks COMPREHENSIVE METABOLIC [id number] 10:20:59 Test Item Value Reference Range Interpretation [...] S NOT APPLICABLE FOR DIALYSIS PATIEN TS. Medical Numerical Control Operator ID - DSENSONOperator ID - DSENSONOperator ID - DSENSONOperator ID - DSENSONOperator ID - DSENSONOperator ID - DSENSONOperator ID - DSENSONOperator ID - DSENSONOperator ID - DSENSONOperator ID - DSENSONOperator ID - DSENSONOperator ID - DSENSONOperator ID - DSENSONOperator ID - DSENSONOperatorID - DSENSONOperator ID - DSENSONOperator ID - DSENSONOperator ID - DSENSONOperator ID - DSENSONCBC W/PLT COUNT & AUTO [id number] 10:04:14 Test Item Value Reference Range Interpretation [...] PERCENT (BEAKER) (test code = 2801) POCT-GLUCOSE [id number] 09:00:00 Test Item Value Reference Range Interpretation Comments POC-GLUCOSE METER 101 mg/dL 70-110 : TESTED A T [facility] (BEAKER) (test code [address], = 1538) [place] [address]: Medical Numerical Control Operator/Techni daniel ID = [id number] for Tisha Tobias POCT-GLUCOSE [id number] 17:42:08 Test Item Value Reference Range Interpretation Comments POC-GLUCOSE METER 81 mg/dL 70-110 : TESTED A T [facility] (BEAKER) (test code = [address], 1538) [place] [address]: Medical Numerical Control Operator/Techni daniel ID = [id number] for Shaun sBozenay POCT-GLUCOSE [id number] 12:45:03 Test Item Value Reference Range Interpretation Comments POC-GLUCOSE METER 79 mg/dL 70-110 : TESTED A T [facility] (BEAKER) (test code = [address], 1538) [place] [address]: Medical Numerical Control Operator/Techni daniel ID = [id number] for Shaun sDrakeYanni POCT-GLUCOSE [id number] 10:51:04 Test Item Value Reference Range Interpretation Comments POC-GLUCOSE METER 63 mg/dL 70-110 L : TESTED A T [facility] (BEAKER) (test code = [address], 1538) [place] [address]: Medical Numerical Control Operator/Techni daniel ID = [id number] for Andi Richey COMPREHENSIVE METABOLIC [id number] 06:32:44 Test Item Value Reference Range Interpretation [...] S NOT APPLICABLE FOR DIALYSIS PATIEN TS. Medical Numerical Control Operator ID - [id number] ID - mlck77Hrfveatm ID - uwck70Xjbwzpmw ID - cpyb85Nyyczxaf ID - hkiv15Cokvidmt ID - rsrf82Nhfkkxzu ID - vsxj80Vtgfngve ID - vhre25Bdixvown ID - ifiu60Ljvsmisr ID - rrus69Nzmgaaka ID - zudy15Iectvfvp ID - evnx47Fyqojdfu ID - iiqb21Umlmstiw ID - jben19Danzzijy ID - hzoe37Qvvzhnim ID - [id number] 06:29:37 Test Item Value Reference Range Interpretation Comments MAGNESIUM (BEAKER) 1.8 mg/dL 1.5-3.0 Specimen slightly (test code = 627) hemolyzed Medical Numerical Control Operator ID - [id number] ID - wmgi53Ioegdiym ID - orwt61Wcbudyrp ID - [id number] CBC W/PLT COUNT & AUTO [id number] 05:55:19 Test Item Value Reference Range Interpretation [...] (test code = 2801) ANG, TUNNELED CATHETER [id number] 10:38:00Reason for Central Line/PICC?->Need for hemodialysis accessReason for exam:->esrd [facility] : 1965 Sex: [...] MDReport Verified Date/Time: 08/16/2021 10:38:20 Reading Location: [facility] Radiology Reading Room REHENSIVE METABOLIC [id number] 05:55:05 Test Item Value Reference Range Interpretation [...] S NOT APPLICABLE FOR DIALYSIS PATIEN TS. Medical Numerical Control Operator ID - LITOOperator ID - LITOOperator ID - LITOOperator ID - LITOOperator ID - LITOOperator ID - LITOOperator ID - LITOOperator ID - LITOOperator ID - LITOOperator ID - LITOOperator ID - LITOOperator ID - LITOOperator ID - LITOOperator ID - LITOOperator ID - LITOOperator ID - [id number] 05:48:01 Test Item Value Reference Range Interpretation Comments MAGNESIUM (BEAKER) (test code = 1.6 mg/dL 1.5-3.0 627) Medical Numerical Control Operator ID - LITOOperator ID - LITOOperator ID - LITOOperator ID - LITOCBC W/PLT COUNT & AUTO [id number] 05:28:26 Test Item Value Reference Range Interpretation [...] = 2801) GI Pathogen Profile by PCR-ID [id number] 18:38:44 Test Item Value Reference Range Interpretation Comments CAMPYLOBACTER PCR (test Not detected Not detected code = 06914-1) PLESIOMONAS SHIGELLOIDES Not detected Not detected (PCR) (test code = 50169-3) SALMONELLA (PCR) (test Not detected Not detected code = 11918-4) YERSINIA ENTEROCOLITICA Not detected Not detected (PCR) (test code = 38453-2) VIBRIO CHOLERAE (PCR) Not detected Not detected (test code = 50825-7) ENTEROAGGREGATIVE E. Not detected Not detected COLI (EAEC) BY PCR (test code = 97098-6) ENTEROPATHOGENIC E. COLI Not detected Not detected (EPEC) BY PCR (test code = 07129-6) ENTEROTOXIGENIC E. COLI Not detected Not detected (ETEC) LT/ST BY PCR (test code = 23467-2) SHIGA-LIKE Not detected Not detected TOXIN-PRODUCING E. COLI (STEC) STX1/STX2 (test code = 90616-1) E. COLI O157 (PCR) (test code = 73990-9) SHIGELLA/ENTEROINVASIVE Not detected Not detected E. COLI (EIEC) BY PCR (test code = 20498-0) CRYPTOSPORIDIUM (PCR) Not detected Not detected (test code = 62012-9) CYCLOSPORA CAYETANENSIS Not detected Not detected (PCR) (test code = 42043-4) ENTAMOEBA HISTOLYTICA Not detected Not detected (PCR) (test code = 49451-4) GIARDIA LAMBLIA (PCR) Not detected Not detected (test code = 21228-5) ADENOVIRUS F 40/41 (PCR) Not detected Not detected (test code = 66612-3) ASTROVIRUS (PCR) (test Not detected Not detected code = 84471-9) NOROVIRUS GI/GII (PCR) Not detected Not detected (test code = 59569-2) ROTAVIRUS A (PCR) (test Not detected Not detected code = 70549-1) SAPOVIRUS (I, II, IV, V) Not detected Not detected BY PCR (test code = 19850-5) VIBRIO Not detected Not detected (PARAHAEMOLYTICUS, VULNIFICUS) (test code = 86673-4) CECELIA (test code = CECELIA) Other viruses, parasites and bacteria not targeted by this PCR panel cannot be excluded; therefore clinical correlation and follow up of serology, culture results, and other molecular studies is required. The results are not intended to be used as the sole means for clinical diagnosis or patient management decisions. This sample was tested at the [facility] Diagnostics [facility] using the [employer] Gastrointestinal Panel. It is FDA cleared and has been verified and approved by the [facility] for clinical use. This laboratory is CLIA-certified and [employer] (CAP)-accredited to perform high complexity testing. [facility] [id number] 18:38:44 Test Item Value Reference Range Interpretation Comments CAMPYLOBACTER PCR (test Not detected Not detected code = 61704-2) PLESIOMONAS SHIGELLOIDES Not detected Not detected (PCR) (test code = 65841-4) SALMONELLA (PCR) (test Not detected Not detected code = 08085-2) YERSINIA ENTEROCOLITICA Not detected Not detected (PCR) (test code = 13541-7) VIBRIO CHOLERAE (PCR) Not detected Not detected (test code = 39189-1) ENTEROAGGREGATIVE E. Not detected Not detected COLI (EAEC) BY PCR (test code = 64327-4) ENTEROPATHOGENIC E. COLI Not detected Not detected (EPEC) BY PCR (test code = 10482-0) ENTEROTOXIGENIC E. COLI Not detected Not detected (ETEC) LT/ST BY PCR (test code = 76515-0) SHIGA-LIKE Not detected Not detected TOXIN-PRODUCING E. COLI (STEC) STX1/STX2 (test code = 87680-5) E. COLI O157 (PCR) (test code = 40796-3) SHIGELLA/ENTEROINVASIVE Not detected Not detected E. COLI (EIEC) BY PCR (test code = 00204-1) CRYPTOSPORIDIUM (PCR) Not detected Not detected (test code = 62700-6) CYCLOSPORA CAYETANENSIS Not detected Not detected (PCR) (test code = 65492-9) ENTAMOEBA HISTOLYTICA Not detected Not detected (PCR) (test code = 10741-9) GIARDIA LAMBLIA (PCR) Not detected Not detected (test code = 31471-4) ADENOVIRUS F 40/41 (PCR) Not detected Not detected (test code = 80615-5) ASTROVIRUS (PCR) (test Not detected Not detected code = 61913-3) NOROVIRUS GI/GII (PCR) Not detected Not detected (test code = 24673-6) ROTAVIRUS A (PCR) (test Not detected Not detected code = 61736-5) SAPOVIRUS (I, II, IV, V) Not detected Not detected BY PCR (test code = 87453-1) VIBRIO Not detected Not detected (PARAHAEMOLYTICUS, VULNIFICUS) (test code = 74210-4) CECELIA (test code = CECELIA) Other viruses, parasites and bacteria not targeted by this PCR panel cannot be excluded; therefore clinical correlation and follow up of serology, culture results, and other molecular studies is required. The results are not intended to be used as the sole means for clinical diagnosis or patient management decisions. This sample was tested at the [facility] Diagnostics Laboratory using the [employer] Gastrointestinal Panel. It is FDA cleared and has been verified and approved by the [facility] for clinical use. This laboratory is CLIA-certified and [employer] (CAP)-accredited to perform high complexity testing. [facility] by [facility]-ID [id number] 18:38:44 Test Item Value Reference Range Interpretation Comments CAMPYLOBACTER PCR (test Not detected Not detected code = 17538-7) PLESIOMONAS SHIGELLOIDES Not detected Not detected (PCR) (test code = 31805-7) SALMONELLA (PCR) (test Not detected Not detected code = 44312-4) YERSINIA ENTEROCOLITICA Not detected Not detected (PCR) (test code = 92221-9) VIBRIO CHOLERAE (PCR) Not detected Not detected (test code = 32278-8) ENTEROAGGREGATIVE E. Not detected Not detected COLI (EAEC) BY PCR (test code = 10487-9) ENTEROPATHOGENIC E. COLI Not detected Not detected (EPEC) BY PCR (test code = 63814-0) ENTEROTOXIGENIC E. COLI Not detected Not detected (ETEC) LT/ST BY PCR (test code = 27662-1) SHIGA-LIKE Not detected Not detected TOXIN-PRODUCING E. COLI (STEC) STX1/STX2 (test code = 01681-1) E. COLI O157 (PCR) (test code = 18684-1) SHIGELLA/ENTEROINVASIVE Not detected Not detected E. COLI (EIEC) BY PCR (test code = 88230-1) CRYPTOSPORIDIUM (PCR) Not detected Not detected (test code = 95356-4) CYCLOSPORA CAYETANENSIS Not detected Not detected (PCR) (test code = 73494-4) ENTAMOEBA HISTOLYTICA Not detected Not detected (PCR) (test code = 05642-6) GIARDIA LAMBLIA (PCR) Not detected Not detected (test code = 10637-8) ADENOVIRUS F 40/41 (PCR) Not detected Not detected (test code = 57098-6) ASTROVIRUS (PCR) (test Not detected Not detected code = 38500-4) NOROVIRUS GI/GII (PCR) Not detected Not detected (test code = 72521-5) ROTAVIRUS A (PCR) (test Not detected Not detected code = 31664-5) SAPOVIRUS (I, II, IV, V) Not detected Not detected BY PCR (test code = 22802-9) VIBRIO Not detected Not detected (PARAHAEMOLYTICUS, VULNIFICUS) (test code = 56322-6) CECELIA (test code = CECELIA) Other viruses, parasites and bacteria not targeted by this PCR panel cannot be excluded; therefore clinical correlation and follow up of serology, culture results, and other molecular studies is required. The results are not intended to be used as the sole means for clinical diagnosis or patient management decisions. This sample was tested at the [facility] using the [employer] Gastrointestinal Panel. It is FDA cleared and has been verified and approved by the [facility] for clinical use. This laboratory is CLIA-certified and [employer] (CAP)-accredited to perform high complexity testing. [facility]-ID [id number] 18:38:44 Test Item Value Reference Range Interpretation Comments CAMPYLOBACTER (PCR) Not detected Not detected (test code = 04948-6) PLESIOMONAS SHIGELLOIDES Not detected Not detected (PCR) (test code = 17204-7) SALMONELLA (PCR) (test Not detected Not detected code = 11983-3) YERSINIA ENTEROCOLITICA Not detected Not detected (PCR) (test code = 42021-6) VIBRIO CHOLERAE (PCR) Not detected Not detected (test code = 78835-4) ENTEROAGGREGATIVE E. Not detected Not detected COLI (EAEC) BY PCR (test code = 95129-7) ENTEROPATHOGENIC E. COLI Not detected Not detected (EPEC) BY PCR (test code = 75265-9) ENTEROTOXIGENIC E. COLI Not detected Not detected (ETEC) LT/ST BY PCR (test code = 63392-1) SHIGA-LIKE Not detected Not detected TOXIN-PRODUCING E. COLI (STEC) STX1/STX2 (test code = 32835-5) E. COLI O157 (PCR) (test code = 16858-1) SHIGELLA/ENTEROINVASIVE Not detected Not detected E. COLI (EIEC) BY PCR (test code = 58772-9) CRYPTOSPORIDIUM (PCR) Not detected Not detected (test code = 72593-6) CYCLOSPORA CAYETANENSIS Not detected Not detected (PCR) (test code = 17900-5) ENTAMOEBA HISTOLYTICA Not detected Not detected (PCR) (test code = 64412-9) GIARDIA LAMBLIA (PCR) Not detected Not detected (test code = 98117-7) ADENOVIRUS F 40/41 (PCR) Not detected Not detected (test code = 26821-4) ASTROVIRUS (PCR) (test Not detected Not detected code = 15867-6) NOROVIRUS GI/GII (PCR) Not detected Not detected (test code = 93710-0) ROTAVIRUS A (PCR) (test Not detected Not detected code = 06446-6) SAPOVIRUS (I, II, IV, V) Not detected Not detected BY PCR (test code = 63439-4) VIBRIO Not detected Not detected (PARAHAEMOLYTICUS, VULNIFICUS) (test code = 22505-3) CECELIA (test code = CECELIA) Other viruses, parasites and bacteria not targeted by this PCR panel cannot be excluded; therefore clinical correlation and follow up of serology, culture results, and other molecular studies is required. The results are not intended to be used as the sole means for clinical diagnosis or patient management decisions. This sample was tested at the [facility] using the [employer] Gastrointestinal Panel. It is FDA cleared and has been verified and approved by the [facility] for clinical use. This laboratory is CLIA-certified and [employer] (CAP)-accredited to perform high complexity testing. [facility] by [facility]-ID [id number] 18:38:44 Test Item Value Reference Range Interpretation Comments CAMPYLOBACTER (PCR) Not detected Not detected (test code = 90983-5) PLESIOMONAS SHIGELLOIDES Not detected Not detected (PCR) (test code = 23371-4) SALMONELLA (PCR) (test Not detected Not detected code = 85926-1) YERSINIA ENTEROCOLITICA Not detected Not detected (PCR) (test code = 88103-2) VIBRIO CHOLERAE (PCR) Not detected Not detected (test code = 90665-0) ENTEROAGGREGATIVE E. Not detected Not detected COLI (EAEC) BY PCR (test code = 62831-0) ENTEROPATHOGENIC E. COLI Not detected Not detected (EPEC) BY PCR (test code = 95482-5) ENTEROTOXIGENIC E. COLI Not detected Not detected (ETEC) LT/ST BY PCR (test code = 10477-5) SHIGA-LIKE Not detected Not detected TOXIN-PRODUCING E. COLI (STEC) STX1/STX2 (test code = 49721-0) E. COLI O157 (PCR) (test code = 13219-3) SHIGELLA/ENTEROINVASIVE Not detected Not detected E. COLI (EIEC) BY PCR (test code = 50397-2) CRYPTOSPORIDIUM (PCR) Not detected Not detected (test code = 51186-2) CYCLOSPORA CAYETANENSIS Not detected Not detected (PCR) (test code = 47843-8) ENTAMOEBA HISTOLYTICA Not detected Not detected (PCR) (test code = 97675-7) GIARDIA LAMBLIA (PCR) Not detected Not detected (test code = 38887-8) ADENOVIRUS F 40/41 (PCR) Not detected Not detected (test code = 83855-6) ASTROVIRUS (PCR) (test Not detected Not detected code = 55931-9) NOROVIRUS GI/GII (PCR) Not detected Not detected (test code = 89967-3) ROTAVIRUS A (PCR) (test Not detected Not detected code = 92872-8) SAPOVIRUS (I, II, IV, V) Not detected Not detected BY PCR (test code = 35970-2) VIBRIO Not detected Not detected (PARAHAEMOLYTICUS, VULNIFICUS) (test code = 05346-3) CECELIA (test code = CECELIA) Other viruses, parasites and bacteria not targeted by this PCR panel cannot be excluded; therefore clinical correlation and follow up of serology, culture results, and other molecular studies is required. The results are not intended to be used as the sole means for clinical diagnosis or patient management decisions. This sample was tested at the [facility] using the [employer] Gastrointestinal Panel. It is FDA cleared and has been verified and approved by the [facility] for clinical use. This laboratory is CLIA-certified and [employer] (CAP)-accredited to perform high complexity testing. [facility] BY [id number] 18:38:44 Test Item Value Reference Range Interpretation Comments CAMPYLOBACTER (PCR) (test code = Not detected Not detected 20150928) PLESIOMONAS SHIGELLOIDES (PCR) Not detected Not detected (test code = 20151002) SALMONELLA (PCR) (test code = Not detected Not detected ) YERSINIA ENTEROCOLITICA (PCR) Not detected Not detected (test code = 0383684) VIBRIO CHOLERAE (PCR) (test code Not detected Not detected = 4925092) ENTEROAGGREGATIVE E. COLI (EAEC) Not detected Not detected BY PCR (test code = 5035492) ENTEROPATHOGENIC E. COLI (EPEC) Not detected Not detected BY PCR (test code = 6649576) ENTEROTOXIGENIC E. COLI (ETEC) Not detected Not detected LT/ST BY PCR (test code = 2301083) SHIGA-LIKE TOXIN-PRODUCING E. Not detected Not detected COLI (STEC) STX1/STX2 (test code = 4459914) E. COLI O157 (PCR) (test code = 0285014) SHIGELLA/ENTEROINVASIVE E. COLI Not detected Not detected (EIEC) BY PCR (test code = 8653368) CRYPTOSPORIDIUM (PCR) (test code Not detected Not [...] detected Not detected VULNIFICUS) (test code = 9561663) Other viruses, parasites and bacteria not targeted by this PCR panel cannot be excluded; therefore clinical correlation and follow up of serology, culture results, and other molecular studies is required. The results are not intended to be used as the sole means for clinical diagnosis or patient management decisions. This sample was tested at the [facility] using the [employer] Gastrointestinal Panel. It is FDA cleared and has been verified and approved by the [facility] for clinical use. This laboratory is CLIA-certified and [employer] (CAP)-accredited to perform high complexity testing.HEPATITIS B SURFACE [id number] 11:08:29 Test Item Value Reference Range Interpretation Comments HEPATITIS B SURFACE ANTIBODY < mIU/mL <8.0 (BEAKER) (test code = 647) Medical Numerical Control Operator ID - BANDAR MHEPATITIS B SURFACE [id number] 04:25:17 Test Item Value Reference Range Interpretation Comments HEPATITIS B SURFACE ANTIGEN (2) Nonreactive Nonreactive (BEAKER) (test code = 2585) Medical Numerical Control Operator ID - [id number] METABOLIC [id number] 04:16:49 Test Item Value Reference Range Interpretation [...] S NOT APPLICABLE FOR DIALYSIS PATIEN TS. Medical Numerical Control Operator ID - [id number] ID - [id number] ID - [id number] ID - [id number] ID - SZLL36Taoiflch ID - BOYD40Oymabspx ID - MPBJ90Bypxamzp ID - FLBX22Bdrednne ID - XCNY47Hlesbjyt ID - JUGY77Afwqscqm ID - NTFC35Kmiqiuju ID - IWAW46Aaxkxkve ID - QCGY17Gisjeqbq ID - NIHA36Fpflawha ID - JOJG37Lgiktudh ID - [id number] 04:09:54 Test Item Value Reference Range Interpretation Comments MAGNESIUM (BEAKER) 1.9 mg/dL 1.5-3.0 Specimen moderately (test code = 627) hemolyzed Medical Numerical Control Operator ID - [id number] ID - [id number] ID - [id number] ID - [id number] CALCIUM, [id number] 03:53:39 Test Item Value Reference Range Interpretation Comments CALCIUM IONIZED (BEAKER) (test 0.86 mmol/L 1.12-1.27 L code = 698) PH, BLOOD (BEAKER) (test code = 7.54 1810) CBC W/PLT COUNT & AUTO [id number] 03:53:15 Test Item Value Reference Range Interpretation [...] (BEAKER) (test code = 2801) Prepare Leuko-Red [id number] 23:55:00 Test Item Value Reference Range Interpretation Comments CROSSMATCH (test code = 2264) COMPATIBLE Unit ABO (test code = O Pos 9269626) UNIT NUMBER (test code = [id number] 934-0) Status (test code = 6553357) TX_TIMEINCHART Blood Bank Product (test code RED BLOOD CELLS = 2263) PRODUCT CODE (test code = V1739C53 933-2) [facility] Center[facility]OLIC [id number] 17:15:10 Test Item Value Reference Range Interpretation [...] S NOT APPLICABLE FOR DIALYSIS PATIEN TS. Medical Numerical Control Operator ID - ONYINYEOperator ID - ONYINYEOperator ID - ONYINYEOperator ID - ONYINYEOperator ID - ONYINYEOperator ID - ONYINYEOperator ID - ONYINYEOperator ID - ONYINYEOperator ID - ONYINYEOperator ID - ONYINYEOperator ID - ONYINYEOperator ID - ONYINYEOperator ID - ONYINYECBC W/PLT COUNT & AUTO [id number] 17:03:51 Test Item Value Reference Range Interpretation [...] PERCENT (BEAKER) (test code = 2801) CALCIUM, [id number] 16:56:18 Test Item Value Reference Range Interpretation Comments CALCIUM IONIZED (BEAKER) (test 0.95 mmol/L 1.12-1.27 L code = 698) PH, BLOOD (BEAKER) (test code = 7.52 1810) Clostridium difficile GDH [id number] 12:56:45 Test Item Value Reference Range Interpretation Comments C. Difficle Toxin Negative Negative (test code = 2510562066) C. Difficile GDH Positive Negative A C. difficil e Antigen (test code = present but toxin 1536354953) not detected. Indicates colonization wi th non-toxigenic [...] of kit performance was done by the [facility] prior to clinical use. Lab Interpretation Abnormal (test code = 62798-4) [facility] CenterClostridium difficile [facility] [id number] 12:56:45 Test Item Value Reference Range Interpretation Comments C. Difficle Toxin Negative Negative (test code = 9480305463) C. Difficile GDH Positive Negative A C. difficil e Antigen (test code = present but toxin 2103089948) not detected. Indicates colonization wi th non-toxigenic [...] of kit performance was done by the [facility] prior to clinical use. Lab Interpretation Abnormal (test code = 83723-9) [facility] Center[facility]ost[facility] difficile [facility] [id number] 12:56:45 Test Item Value Reference Range Interpretation Comments C. Difficle Toxin Negative Negative (test code = 0397930915) C. Difficile GDH Positive Negative A C. difficil e Antigen (test code = present but toxin 4245398809) not detected. Indicates colonization wi th non-toxigenic [...] of kit performance was done by the [facility] prior to clinical use. Lab Interpretation Abnormal (test code = 83764-9) [facility] Center[facility]ost[facility]icile [facility] [id number] 12:56:45 Test Item Value Reference Range Interpretation Comments C. Difficle Toxin Negative Negative (test code = 4602854754) C. Difficile GDH Positive Negative A C. difficil e Antigen (test code = present but toxin 7934278276) not detected. Indicates colonization wi th non-toxigenic [...] of kit performance was done by the [facility] prior to clinical use. Lab Interpretation Abnormal (test code = 63104-7) [facility] Center[facility]ost[facility]icile [facility] [id number] 12:56:45 Test Item Value Reference Range Interpretation Comments C. Difficle Toxin Negative Negative (test code = 5842082720) C. Difficile GDH Positive Negative A C. difficil e Antigen (test code = present but toxin 1433136578) not detected. Indicates colonization wi th non-toxigenic [...] of kit performance was done by the [facility] prior to clinical use. Lab Interpretation Abnormal (test code = 12896-9) [facility] Center[facility]. DIFFICILE GDH [id number] 12:56:45 Test Item Value Reference Range Interpretation Comments CDT TOXIN (test code Negative Negative = 5763634940) CDT GDH ANTIGEN Positive Negative A C. difficile present but (test code = toxin not detec sally. 2871525559) Indicates colon ization with non-toxige keira strain [...] of kit performance was done by the [facility] prior to clinical use.[id number] 11:25:57 Test Item Value Reference Range Interpretation Comments PHOSPHORUS (BEAKER) 2.4 mg/dL 2.5-4.5 L Specimen moderately (test code = 604) hemolyzed Medical Numerical Control Operator ID - LITOOperator ID - LITOOperator ID - LITOOperator ID - FREEDOM COMPREHENSIVE METABOLIC [id number] 06:12:13 Test Item Value Reference Range Interpretation [...] S NOT APPLICABLE FOR DIALYSIS PATIEN TS. Medical Numerical Control Operator ID - ADMINOperator ID - ADMINOperator ID - ADMINOperator ID - ADMINOperator ID - ADMINOperator ID - ADMINOperator ID - ADMINOperator ID - ADMINOperator ID - ADMINOperator ID - ADMINOperator ID- ADMINOperator ID - ADMINOperator ID - ADMINOperator ID - ADMINOperator ID - ADMINOperator ID - ADMI [id number] 06:02:00 Test Item Value Reference Range Interpretation Comments MAGNESIUM (BEAKER) 1.8 mg/dL 1.5-3.0 Specimen moderately (test code = 627) hemolyzed Medical Numerical Control Operator ID - ADMINOperator ID - ADMINOperator ID - ADMINOperator ID - ADMINCBC W/PLT COUNT & AUTO [id number] 05:41:57 Test Item Value Reference Range Interpretation [...] (BEAKER) (test code = 2801) BASIC METABOLIC [id number] 20:07:52 Test Item Value Reference Range Interpretation [...] S NOT APPLICABLE FOR DIALYSIS PATIEN TS. Medical Numerical Control Operator ID - [id number] ID - [id number] ID - [id number] ID - [id number] ID - [id number] ID - [id number] ID - [id number] ID - [id number] ID - [id number] ID - [id number] ID - [id number] ID - [id number] ID - [id number] Echo W/Doppler(CW/PW/Color)2021-08-12 11:40:21Ejection FractionSLEH ECHO HEARTLAB [facility] Echo W/Doppler(CW/PW/Color)2021-08-12 11:40:21Ejection FractionSLEH ECHO HEARTLAB [facility] Echo W/Doppler(CW/PW/Color) 2021-08-12 11:40:21Ejection FractionSLEH ECHO HEARTLAB [facility] Echo W/Doppler(CW/PW/Color)2021-08-12 11:40:21Ejection FractionSLEH ECHO HEARTLAB [facility] Echo W/Doppler(CW/PW/Color)2021-08-12 11:40:21Ejection FractionSLE [facility] 06:15:26 Test Item Value Reference Range Interpretation Comments FERRITIN (BEAKER) (test code = 1071.10 ng/mL 10.00-291.00 H 361) Medical Numerical Control Operator ID - [id number] METABOLIC [id number] 04:03:51 Test Item Value Reference Range Interpretation [...] S NOT APPLICABLE FOR DIALYSIS PATIEN TS. Medical Numerical Control Operator ID - [id number] ID - [id number] ID - [id number] ID - [id number] ID - [id number] ID - [id number] ID - [id number] ID - [id number] ID - [id number] ID - [id number] ID - [id number] ID - [id number] ID - [id number] ID - [id number] ID - [id number] ID - [id number] 03:37:52 Test Item Value Reference Range Interpretation Comments MAGNESIUM (BEAKER) (test code = 1.5 mg/dL 1.5-3.0 627) Medical Numerical Control Operator ID - [id number] ID - [id number] ID - [id number] ID - [id number] W/PLT COUNT & AUTO [id number] 03:23:47 Test Item Value Reference Range Interpretation [...] 0-0 PERCENT (BEAKER) (test code = 2801) [id number] 20:33:51 Test Item Value Reference Range Interpretation Comments MAGNESIUM (BEAKER) 1.6 mg/dL 1.5-3.0 Specimen slightly (test code = 627) hemolyzed Medical Numerical Control Operator ID - [id number] ID - [id number] ID - [id number] ID - [id number] METABOLIC [id number] 18:51:24 Test Item Value Reference Range Interpretation [...] S NOT APPLICABLE FOR DIALYSIS PATIEN TS. Medical Numerical Control Operator ID - [id number] ID - [id number] ID - [id number] ID - [id number] ID - [id number] ID - [id number] ID - [id number] ID - [id number] ID - [id number] ID - [id number] ID - [id number] ID - [id number] ID - [id number], TIBC, % SAT. (WITHOUT FERRITIN)2021-08-11 12:03:57 Test Item Value Reference Range Interpretation Comments IRON (BEAKER) (test code = 547) 68.0 ug/dL 45.0-170.0 TOTAL IRON BINDING CAPACITY 66 ug/dL 250-550 L (BEAKER) (test code = 769) IRON % SATURATION (2) (BEAKER) 103 % 20-55 H (test code = 2590) Medical Numerical Control Operator ID - [id number] ID - [id number] 11:00:01 Test Item Value Reference Range Interpretation Comments MAGNESIUM (BEAKER) 1.3 mg/dL 1.5-3.0 L Specimen slightly (test code = 627) hemolyzed Medical Numerical Control Operator ID - [id number] METABOLIC [id number] 06:41:44 Test Item Value Reference Range Interpretation [...] S NOT APPLICABLE FOR DIALYSIS PATIEN TS. Medical Numerical Control Operator ID - [id number] ID - [id number] ID - [id number] ID - [id number] ID - oaohycvhx381Diaikdvp ID - uhzbfunmu702Biyeodnl ID - zjqfynmjz140Ljcwgjis ID - [id number] ID - ywioohogd677Piueshjt ID - [id number] ID - dslucvapw567Umqsqhfl ID - jyjdatzvh953Zbboflsb ID - mortdntph713Yerwspvj ID - unnhgxsuv803Ipdrpyuf ID - rozltuieg536Lidlcrbd ID -lcvxlweox874YFYNM [id number] 06:41:32 Test Item Value Reference Range Interpretation [...] Borderline 130-159 High 160-189 Very High >=190 Medical Numerical Control Operator ID - [id number] ID - [id number] ID - vikcswdpi161Pctjxxgd ID - qqqgdzibh349Gzyaxtzt ID - xefubeqbf447Mkzhgyhe ID - [id number] A1C 2021-08-11 06:37:45 Test Item Value Reference Range Interpretation Comments HEMOGLOBIN A1C (BEAKER) (test code = 4.7 % 4.3-6.1 368) Medical Numerical Control Operator ID - [id number] W/PLT COUNT & AUTO [id number] 06:08:50 Test Item Value Reference Range Interpretation [...] PERCENT (BEAKER) (test code = 2801) POCT-GLUCOSE [id number] 11:15:00 Test Item Value Reference Range Interpretation Comments POC-GLUCOSE METER 99 mg/dL 70-110 : TESTED A T [address] 1317 (BEAKER) (test code = [address], 15[address]) [place] [id number]: Medical Numerical Control Operator/Techni daniel ID = [id number] for Raeann Lai POCT-GLUCOSE [id number] 11:15:00 Test Item Value Reference Range Interpretation Comments POC-GLUCOSE METER 79 mg/dL 70-110 : Notified RN/MD: TESTED ([facility]) (test code = [address]) [place] [id number]: Medical Numerical Control Operator/Techni daniel ID = [id number] for Smita Campuzano POCT-GLUCOSE [id number] 11:15:00 Test Item Value Reference Range Interpretation Comments POC-GLUCOSE METER 106 mg/dL 70-110 : TESTED A T [facility] 1317 (BEAKER) (test code [address] [facility], = 1538) [place] [address]: Medical Numerical Control Operator/Techni daniel ID = [id number] for Valentina Piña POCT-GLUCOSE [id number] 11:15:00 Test Item Value Reference Range Interpretation Comments POC-GLUCOSE METER 82 mg/dL 70-110 : TESTED A T [facility] 1317 (BEAKER) (test code = [address] [facility], 153) [place] [address]: Medical Numerical Control Operator/Techni daniel ID = [id number] for Raeann Lai POCT-GLUCOSE [id number] 11:15:00 Test Item Value Reference Range Interpretation Comments POC-GLUCOSE METER 88 mg/dL 70-110 : TESTED A T [facility] 1317 (BEAKER) (test code = [address] [facility], 153) [place] [address]: Medical Numerical Control Operator/Techni daniel ID = [id number] for Leatha alonzo, Raeann POCT-GLUCOSE [id number] 11:15:00 Test Item Value Reference Range Interpretation Comments POC-GLUCOSE METER 83 mg/dL 70-110 : Notified RN/MD: TESTED ([facility]) (test code = [address]) [place] [id number]: Medical Numerical Control Operator/Techni daniel ID = [id number] for Aura Charlton POCT-GLUCOSE [id number] 11:15:00 Test Item Value Reference Range Interpretation Comments POC-GLUCOSE METER 110 mg/dL 70-110 : [facility] A T [facility] 1317 [facility] (test code [address], = 1538) [place] [address]: Medical Numerical Control Operator/Techni daniel ID = [id number] for Aura Charlton POCT-GLUCOSE [id number] 11:14:00 Test Item Value Reference Range Interpretation Comments POC-GLUCOSE METER 96 mg/dL 70-110 : TESTED A T [facility] 1317 (BEAKER) (test code = [address], [address]) [place] [address]: Medical Numerical Control Operator/Techni daniel ID = [id number] for Ali, Yaw POCT-GLUCOSE [id number] 11:14:00 Test Item Value Reference Range Interpretation Comments POC-GLUCOSE METER 97 mg/dL 70-110 : TESTED A T [facility] 1317 (BEAKER) (test code = [address], 15[address]) [place] [address]: Medical Numerical Control Operator/Techni daniel ID = [id number] for Ali, Yaw POCT-GLUCOSE [id number] 11:14:00 Test Item Value Reference Range Interpretation Comments POC-GLUCOSE METER 99 mg/dL 70-110 : TESTED A T [facility] 1317 (BEAKER) (test code = [address], 15[address]) [place] [address]: Medical Numerical Control Operator/Techni daniel ID = [id number] for Jennifer Pete POCT-GLUCOSE [id number] 11:14:00 Test Item Value Reference Range Interpretation Comments POC-GLUCOSE METER 91 mg/dL 70-110 : TESTED A T [facility] 1317 (BEAKER) (test code = [address], [address]) [place] [address]: Medical Numerical Control Operator/Techni daniel ID = [id number] for Nwad iufu, Kim POCT-GLUCOSE [id number] 11:14:00 Test Item Value Reference Range Interpretation Comments POC-GLUCOSE METER 75 mg/dL 70-110 : TESTED A T [facility] 1317 (BEAKER) (test code = [address], [address]) [place] [address]: Medical Numerical Control Operator/Techni daniel ID = [id number] for Estelle Serra SARS-COV2/RT-PCR ([facility])2020-08-10 16:15:00 Test Item Value Reference Range Interpretation Comments SARS-COV2/RT-PCR Negative Not Detected, Performanc e of the Xpert (test code = Negative, See Xpress [id number]) external report SARS-CoV-2/F poly/RSV test for linked [...] an EUA for use by authoriz ed [employer]. T his test is only authori zed [...] sooner.Fact She et for Healthcare Prov iders: https://www.[employer].Recondo/ Documents/Xpert %20Xpress %88KWGL-TsR-9-F poly-RSV/30 2-4508%20Rev.%2 0B%20HCP% 20Fact%20Sheet. pdfFact Sheet for Healt hcare Patients: https://www.[employer]/ Documents/Xpert %20Xpress %22LVIY-KfK-0-F poly-RSV/30 2-4507%20Rev.%2 0B%20Pati ent%20Fact%20Sh eet.pdf SARS-COV-2 SLSL Performed at:[facility] PERFORMING LAB [place] [id number] (test code = [facility] [id number]) [place], [place] [address]f h: [phone] RAD, CHEST, 1 VIEW, NON [id number] 15:49:00Reason for exam:->New HemodialysisShould this be performed at the bedside?->Yes [facility] 1965 Sex: FFINAL REPORT CHEST AP PORTABLE SEMIERECT COMPARISON STUDY: 10/30/2018 History provided: Dialysis Radiographically normal-appearing heart and lungs. Tunneled dialysis catheter fromright jugular approach with catheter tip at the cavoatrial junction. Signed: Junito Mayberry MDReport Verified Date/Time: 08/10/2020 15:49:39 Reading Location: [facility] Radiology Reading Room HEPATITIS B CORE ANTIBODY, [id number] 11:01:00 Test Item Value Reference Range Interpretation Comments HEPATITIS B CORE TOTAL ANTIBODY Nonreactive Nonreactive (BEAKER) (test code = 497) Medical Numerical Control Operator ID - BANDAR MCOMPREHENSIVE METABOLIC [id number] 05:59:00 Test Item Value Reference Range Interpretation [...] S NOT APPLICABLE FOR DIALYSIS PATIEN TS. Medical Numerical Control Operator ID - LITOOperator ID - LITOOperator [...] (test code = 2801) HEPATITIS B SURFACE [id number] 17:24:00 Test Item Value Reference Range Interpretation Comments HEPATITIS B SURFACE ANTIGEN (2) Nonreactive Nonreactive (BEAKER) (test code = 2585) Medical Numerical Control Operator ID - MAYELIN, TUNNELED CATHETER [id number] 10:44:00Reason for Central Line/PICC?->Need for hemodialysis accessReason for exam:->[facility]od[facility] : 1965 Sex: FFINAL REPORT [...] the patient's medical record by the nurse. Sales Clerk Supervisor: Rigoberto Rey M.D. Field Mechanic/Site Lead: None. Approach: Right internal jugular vein Estimated blood loss: < 5 cc. Specimen: None.Fluoroscopy Time: 1 minute and 5 secondsDose (Ka,r): 4 mGy. Technique: Informed written consent was obtained. Discussion of risks, benefits, and alternatives were made with the patient. The patient expressed understanding and agreed to proceed. All elements maximal sterile barrier technique was utilized for this procedure, including utilization of sterile scrub solution for skin prep, a large sterilesheet to cover the areas of the patient that were not prepped, and hand hygiene, mask, head covering, and sterile gown for performing radiologist and scrub technologist. The skin was anesthetized with 2% lidocaine.Ultrasound evaluation showed a patent and compressible right internal jugular vein, which was punctured under direct real- time ultrasound guidance with a micropuncture needle. An ultrasoundimage was saved to PACS. A 0.018 inch wire was placed through the needle into the right atrium. A 4 Swiss micropuncture sheath was placed and a 0.035 wire was advanced into the IVC. A subcutaneous tunnel was created in the right anterior chest wall by blunt dissection. A 19 cm tip to cuff 15.5 FrenchDuraflow 2 catheter was brought through the tunnel. The vessel tract was serially dilated. A peel-away sheath was placed in the right IJ vein and the catheter was advanced through the sheath, with its distal tip terminating in the superior right atrium. The peel- away sheath was removed. The ports wereflushed and aspirated easily following placement. The catheter was sutured to the skin to secure itsplacement. The small jugular incision site was closed using Dermabond. Vital signs were monitored throughout the procedure by a nurse, and remained stable. The patient tolerated the procedure well and left the department in the same condition. Results: Spot radiograph of the chest demonstrates the newdialysis catheter to lie in the expected position with its tip overlying the superior right atrium. Impression: Successful, uncomplicated placement of a right internal jugular tunneled dialysis catheter using sonographic and fluoroscopic guidance and conscious sedation. Signed: Rigoberto Rey MDReport Verified Date/Time: 08/09/2020 10:44:42 Reading Location: [facility] Radiology Reading Room Electronicallysigned by: RIGOBERTO REY MD on 08/09/2020 10:44 AMBASIC METABOLIC [id number] 04:46:00 Test Item Value Reference Range Interpretation [...] S NOT APPLICABLE FOR DIALYSIS PATIEN TS. Medical Numerical Control Operator ID - [id number] ID - [id number] ID - ZBRO52Mikagfaa ID - HNZR32Vlabrvml ID - BBEU51Xhrvsqms ID - FYOG62Uhgdfxxm ID - DAWN77Enrpdafs ID - BGDY30Euejtinv ID - ZFMO36Pqtkerfb ID - TUEU37Pcqglytm ID - BITF41Afmjhjcx ID - JUQG57Qfwnbwsm ID - [id number] W/PLT COUNT & AUTO [id number] 04:27:00 Test Item Value Reference Range Interpretation [...] PERCENT (BEAKER) (test code = 2801) POCT-GLUCOSE [id number] 06:14:00 Test Item Value Reference Range Interpretation Comments POC-GLUCOSE METER 76 mg/dL 70-110 : TESTED A T [facility] 1317 (BEAKER) (test code = [address], [address]) [facility] [address]: Medical Numerical Control Operator/Techni daniel ID = [id number] for Tashia Rodney HEMOGLOBIN [id number] 05:40:00 Test Item Value Reference Range Interpretation Comments HEMOGLOBIN A1C (BEAKER) (test code = 4.4 % 4.3-6.1 368) Medical Numerical Control Operator ID - [id number] 20:58:00 Test Item Value Reference Range Interpretation Comments POC-GLUCOSE METER 118 mg/dL 70-110 H : TESTED A T [facility] 1317 (BEAKER) (test code [address], = 1538) [facility] [address]: Medical Numerical Control Operator/Techni daniel ID = [id number] for Tashia Rodney VANCOMYCIN LEVEL, [id number] 08:10:00 Test Item Value Reference Range Interpretation Comments VANCOMYCIN TROUGH (BEAKER) (test 17.0 ug/mL 10.0-20.0 code = 522) Medical Numerical Control Operator ID - [id number] 05:26:00 Test Item Value Reference Range Interpretation [...] Borderline 130-159 High 160-189 Very High >=190 Medical Numerical Control Operator ID - [id number] ID - [id number] ID - [id number] METABOLIC [id number] 05:26:00 Test Item Value Reference Range Interpretation [...] S NOT APPLICABLE FOR DIALYSIS PATIEN TS. Medical Numerical Control Operator ID - [id number] ID - [id number] ID - fayj82Sylgxaul ID - ovjy09Anyjxgin ID - uiaf71Xtqpysrm ID - syvs42Qgxrzkcd ID - mcye49Slxqszkw ID - mzxp31Natcswob ID - lblt56Fpifpzdd ID - [id number] 05:18:00 Test Item Value Reference Range Interpretation Comments MAGNESIUM (BEAKER) (test code = 2.0 mg/dL 1.5-3.0 627) Medical Numerical Control Operator ID - [id number] ID - [id number] ID - ouoj14Doxziwks ID - [id number] [id number] 05:16:00 Test Item Value Reference Range Interpretation Comments PHOSPHORUS (BEAKER) (test code = 4.8 mg/dL 2.5-4.5 H 604) Medical Numerical Control Operator ID - [id number] W/PLT COUNT & AUTO [id number] 05:10:00 Test Item Value Reference Range Interpretation [...] PERCENT (BEAKER) (test code = 2801) PROTHROMBIN [id number] 04:59:00 Test Item Value Reference Range Interpretation Comments PROTIME (BEAKER) 13.2 seconds 9.3-12.0 H Final Infor mation (test code = 759) (Auto Outp ut) INR (BEAKER) (test 1.20 See_Comment Final Inf ormation code = 370) (Auto Output) [Automated mess age] The system [employer] generated this result transmitted ref erence range: <=5.90. The reference range was not used to int erpret this result as normal/abnormal . RECOMMENDED COUMADIN/WARFARIN INR THERAPY RANGESSTANDARD DOSE: 2.0 - 3.0 Includes: PROPHYLAXIS for venous thrombosis, systemic embolization; TREATMENT for venous thrombosis and/or pulmonary embolus.HIGH RISK: Target INR is 2.5-3.5 for patients with mechanical heart valves.HEMOGLOBIN [id number] 04:50:00 Test Item Value Reference Range Interpretation Comments HEMOGLOBIN A1C (BEAKER) (test code = 4.5 % 4.3-6.1 368) Medical Numerical Control Operator ID - [id number] FLUID CULTURE + GRAM [id number] 12:18:00 Test Item Value Reference Range Interpretation Comments CULTURE (BEAKER) (test No growth code = 1095) GRAM STAIN RESULT <1+ White blood cells (BEAKER) (test code = seen 1123) GRAM STAIN RESULT No organisms seen (BEAKER) (test code = 48866) BLOOD [id number] 08:01:00 Test Item Value Reference Range Interpretation Comments CULTURE (BEAKER) (test No growth in 5 days code = 1095) BLOOD [id number] 08:01:00 Test Item Value Reference Range Interpretation Comments CULTURE (BEAKER) (test No growth in 5 days code = 1095) POCT-GLUCOSE [id number] 14:58:00 Test Item Value Reference Range Interpretation Comments POC-GLUCOSE METER 101 mg/dL 70-110 TESTED AT [place] [address] ([facility]) (test code = [facility] Nithya [facility] 1538) [address] HEMOGLOBIN AND [id number] 12:19:00 Test Item Value Reference Range Interpretation Comments HEMOGLOBIN (BEAKER) (test code = 7.5 GM/DL 11.2-15.7 L 410) [facility] (test code = 23.1 % 34.1-44.9 L 411) POCT-GLUCOSE [id number] 08:37:00 Test Item Value Reference Range Interpretation Comments POC-GLUCOSE METER 168 mg/dL 70-110 H TESTED AT [place] [address] ([facility]) (test code = [facility] Nithya [facility] 1538) [address] LACTIC ACID, [id number] 07:04:00 Test Item Value Reference Range Interpretation Comments LACTATE BLOOD VENOUS 1.9 mmol/L 0.5-2.2 Specime n slightly (2) ([facility]) (test hemolyzed code = 2872) POCT-GLUCOSE [id number] 21:25:00 Test Item Value Reference Range Interpretation Comments POC-GLUCOSE METER 102 mg/dL 70-110 TESTED AT [place] [address] ([facility]) (test code = ANIL Brown [facility] 1538) [address] POCT-GLUCOSE [id number] 18:50:00 Test Item Value Reference Range Interpretation Comments POC-GLUCOSE METER 91 mg/dL 70-110 TESTED AT [place] [address] ([facility]) (test code = ANIL Brown [facility] [address] 1538) POCT-GLUCOSE [id number] 13:23:00 Test Item Value Reference Range Interpretation Comments POC-GLUCOSE METER 114 mg/dL 70-110 H TESTED AT [place] [address] ([facility]) (test code = [facility] Nithya [facility] 1538) [address] POCT-GLUCOSE [id number] 09:11:00 Test Item Value Reference Range Interpretation Comments POC-GLUCOSE METER 131 mg/dL 70-110 H TESTED AT [place] [address] ([facility]) (test code = [facility] Nithya [facility] 1538) [address] BASIC METABOLIC [id number] 06:45:00 Test Item Value Reference Range Interpretation [...] S NOT APPLICABLE FOR DIALYSIS PATIEN TS. [id number] 06:40:00 Test Item Value Reference Range Interpretation Comments PHOSPHORUS (BEAKER) (test code = 6.5 mg/dL 2.3-4.7 H 604) [id number] 06:40:00 Test Item Value Reference Range Interpretation Comments MAGNESIUM (BEAKER) (test code = 1.9 mg/dL 1.6-2.6 627) LACTIC ACID, [id number] 06:12:00 Test Item Value Reference Range Interpretation Comments LACTATE BLOOD VENOUS (2) (BEAKER) 2.3 mmol/L 0.5-2.2 H (test code = 2872) CBC W/PLT COUNT & AUTO [id number] 06:05:00 Test Item Value Reference Range Interpretation [...] PERCENT (BEAKER) (test code = 2801) POCT-GLUCOSE [id number] 21:04:00 Test Item Value Reference Range Interpretation Comments POC-GLUCOSE METER 135 mg/dL 70-110 H TESTED AT [facility] 67 ([facility]) (test code = [place] 1538) [address] [id number] 17:08:00 Test Item Value Reference Range Interpretation Comments FERRITIN (BEAKER) (test code = 1367 ng/mL 5-275 H 361) POCT-GLUCOSE [id number] 17:00:00 Test Item Value Reference Range Interpretation Comments POC-GLUCOSE METER 137 mg/dL 70-110 H TESTED AT [place] [address] ([facility]) (test code = [facility] [place] 1538) [address] IRON, TIBC, % SAT. (WITHOUT FERRITIN)2018-10-30 16:48:00 Test Item Value Reference Range Interpretation Comments IRON (BEAKER) (test code = 547) 53.0 ug/dL 40.0-160.0 TOTAL IRON BINDING CAPACITY 135 ug/dL 250-450 L (BEAKER) (test code = 769) IRON % SATURATION (2) (BEAKER) 39 % 20-55 (test code = 2590) RETICULOCYTE [id number] 16:47:00 Test Item Value Reference Range Interpretation Comments RETICULOCYTE COUNT PCT (BEAKER) (test 2.1 % 0.5-1.7 H code = 575) LACTIC ACID, [id number] 14:17:00 Test Item Value Reference Range Interpretation Comments LACTATE BLOOD VENOUS (2) (BEAKER) 1.7 mmol/L 0.5-2.2 (test code = 2872) HEMOGLOBIN AND [id number] 14:03:00 Test Item Value Reference Range Interpretation Comments HEMOGLOBIN (BEAKER) (test code = 6.4 GM/DL 11.2-15.7 L 410) HEMATOCRIT (BEAKER) (test code = 20.2 % 34.1-44.9 L 411) POCT-GLUCOSE [id number] 11:11:00 Test Item Value Reference Range Interpretation Comments POC-GLUCOSE METER 143 mg/dL 70-110 H TESTED AT [facility] 6720 (BEAKER) (test code = [place] 1538) [address] [id number] 03:47:00 Test Item Value Reference Range Interpretation Comments PROCALCITONIN (BEAKER) (test code 0.76 ng/mL <0.05 H = 3036) SEPSIS RISK (ng/mL)Low: 0.05-0.50Intermediate: 0.51-2.00High: >=2.01 [id number] 02:58:00 Test Item Value Reference Range Interpretation Comments PHOSPHORUS (BEAKER) (test code = 6.8 mg/dL 2.3-4.7 H 604) [id number] 02:58:00 Test Item Value Reference Range Interpretation Comments MAGNESIUM (BEAKER) (test code = 1.9 mg/dL 1.6-2.6 627) LACTIC ACID, [id number] 02:53:00 Test Item Value Reference Range Interpretation Comments LACTATE BLOOD VENOUS 1.6 mmol/L 0.5-2.2 Specime n slightly (2) (BEAKER) (test hemolyzed code = 2872) RAD, CHEST, 1 VIEW, NON [id number] 02:31:00Reason for exam:->altered mental statusShould this be [...] Pleitez Verified Date/Time: 10/30/2018 02:31:36 OXYGEN SATURATION, [id number] 02:25:00 Test Item Value Reference Range Interpretation Comments O2 SATURATION (MEASURED) (BEAKER) 75.1 % (test code = 1455) If patient has internal jugular ( IJ) or subclavian central line or PICC line. Draw from distal port. Label as central venous oxygen.CBC W/PLT COUNT & AUTO [id number] 00:56:00 Test Item Value Reference Range Interpretation [...] (BEAKER) (test code = 2801) COMPREHENSIVE METABOLIC [id number] 00:46:00 Test Item Value Reference Range Interpretation [...] APPLICABLE FOR DIALYSIS PATIEN TS. LACTIC ACID, [id number] 00:27:00 Test Item Value Reference Range Interpretation Comments LACTATE BLOOD VENOUS (2) (BEAKER) 1.9 mmol/L 0.5-2.2 (test code = 2872) BLOOD GAS, [id number] 00:24:00 Test Item Value Reference Range Interpretation [...] (test code = 1819) 21.0 % POCT-GLUCOSE [id number] 23:54:00 Test Item Value Reference Range Interpretation Comments POC-GLUCOSE METER 249 mg/dL 70-110 H TESTED AT [facility] 6720 (BEAKER) (test code = ANIL Brown [facility] 1538) [address] BODY FLUID CELL COUNT WITH [id number] 21:57:00 Test Item Value Reference Range Interpretation [...] = 1 % 492) CONTAINER BODY FLUID (AKER) EDTA Tube (test code = 2873) C. DIFFICILE GDH [id number] 10:06:00 Test Item Value Reference Range Interpretation Comments CDT TOXIN (test code Positive Negative A = [id number]) CDT GDH ANTIGEN Positive Negative A Confirms Beti stridium (test code = difficile-assoc iated [id number]) infection.First line therapy - oral Vancomycin. Con tinue enteric isolati on until 72 hours after treatment is discontinued and symptoms have r esolved. Testing performed by [employer] Rapid [employer]ette [employer]. For GDH, published sensitivity of the assay is 98.7% compared to cytotoxicity testing. For Toxin AB, published sensitivity is 87.8% and specificity 99.4% compared to cytotoxicity testing.Verification of kit performance was done by the [facility] MicrobiologyLab prior to clinical use.POCT-GLUCOSE [id number] 09:14:00 Test Item Value Reference Range Interpretation Comments POC-GLUCOSE METER 109 mg/dL 70-110 TESTED AT [facility] 6720 ([facility]) (test code = ANIL Brown [facility] 1538) [address] [id number] 08:46:00 Test Item Value Reference Range Interpretation Comments PROCALCITONIN (AKER) (test code 0.67 ng/mL <0.05 H = 3036) SEPSIS RISK (ng/mL)Low: 0.05-0.50Intermediate: 0.51-2.00High: >=2.01CBC W/PLT COUNT & AUTO [id number] 08:36:00 Test Item Value Reference Range Interpretation Comments WHITE BLOOD CELL COUNT (AKER) 11.1 K/ L 3.5-10.5 H (test code = 775) RED BLOOD CELL COUNT (AKER) 2.32 M/ L 3.93-5.22 L (test code = 761) HEMOGLOBIN (AKER) (test code = 7.4 GM/DL 11.2-15.7 L 410) HEMATOCRIT ([facility]) (test code = 23.1 % 34.1-44.9 L 411) MEAN CORPUSCULAR VOLUME ([facility]) 99.6 fL 79.4-94.8 H (test code [...] PERCENT (BEAKER) (test code = 2801) VITAMIN [id number] 07:12:00 Test Item Value Reference Range Interpretation Comments VITAMIN B12 (BEAKER) (test code = 680 pg/mL 213-816 774) TSH/FREE T4 IF [id number] 07:12:00 Test Item Value Reference Range Interpretation Comments THYROID STIMULATING HORMONE 0.94 uIU/mL 0.35-4.94 (BEAKER) (test code = 772) OSMOLALITY, [id number] 07:06:00 Test Item Value Reference Range Interpretation Comments OSMOLALITY, SERUM (BEAKER) (test 296 mOsm/kg 275-295 H code = 615) BASIC METABOLIC [id number] 06:11:00 Test Item Value Reference Range Interpretation [...] S NOT APPLICABLE FOR DIALYSIS PATIEN TS. [id number] 06:05:00 Test Item Value Reference Range Interpretation Comments PHOSPHORUS (BEAKER) (test code = 7.4 mg/dL 2.3-4.7 H 604) [id number] 06:05:00 Test Item Value Reference Range Interpretation Comments MAGNESIUM (BEAKER) (test code = 2.0 mg/dL 1.6-2.6 627) HEPATIC FUNCTION [id number] 06:05:00 Test Item Value Reference Range Interpretation [...] code = 39 U/L 6-55 347) C-REACTIVE [id number] 06:05:00 Test Item Value Reference Range Interpretation Comments C-REACTIVE PROTEIN (BEAKER) (test 1.72 mg/dL 0.00-0.50 H code = 676) [id number] 05:56:00 Test Item Value Reference Range Interpretation Comments AMMONIA (BEAKER) (test code = 348) 16 mol/L 18-72 L RAD, CHEST, 1 VIEW, NON [id number] 21:14:00Reason for exam:->chest painIs the patient ?->UnknownShould this be performed at the community hospital?->YesFINAL REPORT Chest, 1 view. History: Chest pain Comparison: Plain radiograph the chest dated 01/15/2018.. Findings: The cardiomediastinal silhouette and pulmonary vasculature are within normal limits for a portable exam. The lungs are clear without evidence of consolidation or effusion. The soft tissues and osseous structures are intact. IMPRESSION: No acute cardiopulmonary abnormality. Signed: Bernardo Pleitez [facility] Verified Date/Time: 10/28/2018 21:14:02 URINALYSIS [id number] 20:54:00 Test Item Value Reference Range Interpretation Comments RBC UA (BEAKER) (test code = 519) 1 /HPF WBC UA (BEAKER) (test code = 520) 10 /HPF SQUAMOUS EPITHELIAL (BEAKER) (test 5 /HPF code = 516) HYALINE CASTS (BEAKER) (test code = 2 /LPF 514) URINALYSIS WITH MICROSCOPIC IF [id number] 20:52:00 Test Item Value Reference Range Interpretation [...] SOURCE(BEAKER) (test code = 2795) BASIC METABOLIC [id number] 20:32:00 Test Item Value Reference Range Interpretation [...] S NOT APPLICABLE FOR DIALYSIS PATIEN TS. [id number] 20:29:00 Test Item Value Reference Range Interpretation Comments MAGNESIUM (BEAKER) (test code = 2.0 mg/dL 1.6-2.6 627) [id number] 20:29:00 Test Item Value Reference Range Interpretation Comments LIPASE (BEAKER) (test code = 749) 65 U/L 8-78 PT/[id number] 20:10:00 Test Item Value Reference Range Interpretation [...] mechanical heart valves.CBC W/PLT COUNT & AUTO [id number] 20:05:00 Test Item Value Reference Range Interpretation [...] (test code = 2801) CT, BRAIN, WITHOUT [id number] 19:38:00Reason for exam:->ALTERED MENTAL STATUSReason for exam:->GENERALIZED [...] Benítez Verified Date/Time: 10/28/2018 19:38:10 Reading Location: [facility] B1 C013V Neuro Reading Room [facility] signed by: RUTH BENÍTEZ MD on 10/28/2018 07:38 PMHEMOGLOBIN [id number] 07:56:00 Test Item Value Reference Range Interpretation Comments HEMOGLOBIN A1C (BEAKER) (test code = 6.1 % 4.3-6.1 368) VITAMIN [id number] 06:59:00 Test Item Value Reference Range Interpretation Comments VITAMIN B12 (BEAKER) (test code = 483 pg/mL 213-816 774) TSH/FREE T4 IF [id number] 06:59:00 Test Item Value Reference Range Interpretation Comments THYROID STIMULATING HORMONE 1.74 uIU/mL 0.35-4.94 (BEAKER) (test code = 772) BASIC METABOLIC [id number] 06:04:00 Test Item Value Reference Range Interpretation [...] NOT APPLICABLE FOR DIALYSIS PATIEN TS. LIPID [id number] 05:54:00 Test Item Value Reference Range Interpretation [...] Very High >=190CBC W/PLT COUNT & AUTO [id number] 04:52:00 Test Item Value Reference Range Interpretation [...] (test code = 2801) MR, BRAIN, WITHOUT [id number] 04:11:00FINAL REPORT MRI Brain without contrast Clinical History: TIA/Stroke Technique:MRI of the brain utilizing axial T2, FLAIR, GRE, DWI; sagittal and coronal T1-weighted images. MRA of the head utilizing 3-D gupv-nq-moxmaf technique, with 3-D reconstructions. MRA of the neck utilizing 2-D and 3-D edjn-mp-oqzhzy technique, with 3-D reconstructions. Comparisons: None Findings:MRI [...] MRA head: No evidence for a major inaja of [place] proximal branch vessel occlusion. MRA neck: No evidence of hemodynamically significant stenosis in the cervical carotid or vertebral arteries by NASCET criteria. Signed: Bernardo Pleitez Verified Date/Time: 08/19/2018 04:11:07 Reading Location: [address] Transitional Reading Room MR, MRA, BRAIN, WITHOUT [id number] 04:11:00FINAL REPORT MRI Brain without contrast Clinical History: TIA/Stroke Technique: MRI of the brain utilizing axial T2, FLAIR, GRE, DWI; sagittal and coronal T1- weighted images. MRA of the head utilizing 3-D mssq-qo-bkgged technique, with 3- D reconstructions. MRA of the neck utilizing 2-D and 3-D izwi-zm-muzcpl technique, with 3-D reconstructions. Comparisons: None Findings:MRI [...] MRA head: No evidence for a major inaja of [place] proximal branch vessel occlusion. MRA neck: No evidence of hemodynamically significant stenosis in the cervical carotid or vertebral arteries by NASCET criteria. Signed: Bernardo PleitezVerified Date/Time: 08/19/2018 04:11:07 Reading Location: [address] Transitional Reading Room MR, MRA, NECK, WITHOUT IV [id number] 04:11:00Reason for exam:->Stroke/TIAFINAL REPORT MRI Brain without contrast Clinical History: TIA/Stroke Technique:MRI of the brain utilizing axial T2, FLAIR, GRE, DWI; sagittal and coronal T1-weighted images. MRA of the head utilizing 3-D pych-um-zpspbw technique, with 3-D reconstructions. MRA of the neck utilizing 2- D and 3-D jvke-yi-gmqpgn technique, with 3-D reconstructions. Comparisons: None Findings:MRI [...] MRA head: No evidence for a major inaja of [place] proximal branch vessel occlusion. MRA neck: No evidence of hemodynamically significant stenosis in the cervical carotid or vertebral arteries by NASCET criteria. Signed: Bernardo Pleitez MDReportVerified Date/Time: 08/19/2018 04:11:07 Reading Location: [address] Reading Room POCT-GLUCOSE [id number] 21:55:00 Test Item Value Reference Range Interpretation Comments POC-GLUCOSE METER 115 mg/dL 70-110 H TESTED AT [place] [address] ([facility]) (test code = ANIL DYE ID 1538) [id number] POCT-GLUCOSE [id number] 18:29:00 Test Item Value Reference Range Interpretation Comments POC-GLUCOSE METER 93 mg/dL 70-110 TESTED AT [place] [address] ([facility]) (test code = [place] [address] 1538) CT, CTA [id number] 10:10:00Reason for Exam:->assess iliac vessels, pre kidney transplantAddendum BeginsREPORT STATUS:A Addendum: I agree with the previously described non vascular findings. Signed: NanetteCristopher MDReport Verified Date/Time: 06/27/2018 10:10:18 Reading Location: [place] [address] Angio Body Reading RoomAddendum EndsFINAL REPORT CT angiography of the abdominal aorta and pelvic arteries, 25-Jun-18 INDICATION: This is a 53 year old female with end-stage renal disease, presents for pretransplant assessment. This study is performed in anattempt to avoid an invasive procedure. TECHNIQUE: Spiral acquisition before and during intravenous contrast administration using a [address] scanner. Images were obtained before [...] except for minimal calcific atherosclerosis identified proximally. Summer Analyst dimensions of the left and the right external iliac arteries are 6 and 6 mm, respectively. Similarly, the associated pelvic veins are patent with no venous thrombosis identified. Summer Analyst dimensions of the left and the [...] no arterial stenosis or venous thrombosis identified. Summer Analyst dimensions of the left and the right external iliac arteries and veins are as described above. 2. Widely patent mesenteric arteries. Patent renal arteries. 3. Other findings as described above. 4. An addendum will be dictated regarding the non-vascular findings by the Crystal Growing Technician Radiologist. Signed: Samson Mcgill MDReport Verified Date/Time: 06/25/2018 09:45:12 Reading Location: [place] [id number] Cardiology MRI OCCULT BLOOD, [id number] 00:49:00 Test Item Value Reference Range Interpretation Comments FECAL OCCULT BLOOD (BEAKER) (test Negative Negative code = 618) U/S, ABDOMINAL, [id number] 13:53:00Reason for Exam:->pre transplant evaluationFINAL REPORT Abdominal [...] sonographic evidence for acute cholecystitis. Signed: Edwar Thayerort Verified Date/Time: 03/01/2018 13:53:56 Reading Location: [facility] B1 P006J Ultrasound Reading Room OCCULT BLOOD, [id number] 11:11:00 Test Item Value Reference Range Interpretation Comments FECAL OCCULT BLOOD (BEAKER) (test Negative Negative code = 618) [id number] 10:23:00 Test Item Value Reference Range Interpretation Comments PHOSPHORUS (BEAKER) (test code = 3.9 mg/dL 2.3-4.7 604) PROTHROMBIN [id number] 10:21:00 Test Item Value Reference Range Interpretation Comments PROTIME (BEAKER) (test code = 13.2 seconds 11.7-14.7 759) INR (BEAKER) (test code = 370) 1.0 <=5.9 RECOMMENDED COUMADIN/WARFARIN INR THERAPY RANGESSTANDARD DOSE: 2.0 - 3.0 Includes: PROPHYLAXIS for venous thrombosis, systemic embolization; TREATMENT for venous thrombosis and/or pulmonary embolus.HIGH RISK: Target INR is 2.5-3.5 for patients with mechanical heart valves.URINE [id number] 10:03:00 Test Item Value Reference Range Interpretation Comments CULTURE (BEAKER) (test 40-49,000 col/mL skin code = 1095) johnny CYTOMEGALOVIRUS ANTIBODY, [id number] 10:10:00 Test Item Value Reference Range Interpretation Comments CYTOMEGALOVIRUS, IGG (BEAKER) Positive Negative, Equivocal A (test code = 3429) CMV IgG Result Interpretation: </= 0.8 Al Negative 0.9-1.0 Al Equivocal >/=1.1 Al PositiveCYTOMEGALOVIRUS ANTIBODY, [id number] 10:10:00 Test Item Value Reference Range Interpretation Comments CYTOMEGALOVIRUS IGM ANTIBODY Positive Negative, Equivocal A (BEAKER) (test code = 3437) CMV IgM Result Interpretation: </= 0.8 Al Negative 0.9-1.0 Al Equivocal >/= 1.1 Al PositiveEBV ANTIBODY, [id number] 10:10:00 Test Item Value Reference Range Interpretation Comments ASHELY JENNINGS VIRAL CAPSID Positive Negative, Equivocal A ANTIGEN IGG (BEAKER) (test code = 3415) Ashely Jennings Viral Capsid Antigen IgG Result Interpretation: </= 0.8 Al Negative 0.9-1.0 Al Equivocal >/= 1.1 Al PositiveEBV ANTIBODY, [id number] 10:10:00 Test Item Value Reference Range Interpretation Comments ASHELY JENNINGS VIRAL CAPSID Negative Negative, Equivocal ANTIGEN IGM (BEAKER) (test code = 3418) Ashely Jennings Viral Capsid Antigen IgM Result Interpretation: </= 0.8 Al Negative 0.9-1.0 Al Equivocal >/= 1.1 Al PositiveVARICELLA ZOSTER ANTIBODY, [id number] 10:09:00 Test Item Value Reference Range Interpretation Comments VARICELLA ZOSTER IGG (AL) (BEAKER) > (test code = 3197) VARICELLA ZOSTER RESULT INTERPRETATIONS: <=0.8 Al Nonreactive: Presumed non- immune to VZV 0.9-1.0Al Equivocal >=1.1 Al Reactive: Presumed immune to VZV [id number] 07:38:00 Test Item Value Reference Range Interpretation Comments RPR SCREEN (BEAKER) (test code = Nonreactive Nonreactive 420) CBC W/PLT COUNT & AUTO [id number] 14:38:00 Test Item Value Reference Range Interpretation [...] (test code = 2801) RAD, CHEST, 2 [id number] 12:48:00Reason for Exam:->pre transplant evaluationFINAL REPORT PA and Lateral views of the chest dated 01/15/2018 Clinical information: pre transplant evaluation Comment: Heart is normal in size. Pulmonary vasculature is unremarkable. Lungs are clear. No pulmonary infiltrate or pleural effusion is present. Impression: No active ca rdiopulmonary disease. Signed: Daiana Anaya Verified Date/Time: 01/15/2018 12:48:30 Reading Location: [address] Radiology Reading Room HEMOGLOBIN [id number] 11:27:00 Test Item Value Reference Range Interpretation Comments HEMOGLOBIN A1C (BEAKER) (test code = 5.6 % 4.3-6.1 368) URINALYSIS W/ [id number] 11:23:00 Test Item Value Reference Range Interpretation [...] = 1585) Rare SOURCE(BEAKER) (test code = 1882) COMPREHENSIVE METABOLIC [id number] 10:41:00 Test Item Value Reference Range Interpretation [...] NOT APPLICABLE FOR DIALYSIS PATIEN TS. URIC [id number] 10:04:00 Test Item Value Reference Range Interpretation [...] H code = 635) HEPATITIS B SURFACE [id number] 10:03:00 Test Item Value Reference Range Interpretation Comments HEPATITIS B SURFACE ANTIGEN (2) Nonreactive Nonreactive (BEAKER) (test code = 2585) HEPATITIS B SURFACE [id number] 10:03:00 Test Item Value Reference Range Interpretation Comments HEPATITIS B SURFACE ANTIBODY 69.3 mIU/mL <8.0 H (BEAKER) (test code = 647) HEPATITIS B CORE ANTIBODY, [id number] 10:03:00 Test Item Value Reference Range Interpretation Comments HEPATITIS B CORE IGM ANTIBODY Nonreactive Nonreactive (BEAKER) (test code = 645) HEPATITIS C [id number] 10:03:00 Test Item Value Reference Range Interpretation Comments HEPATITIS C ANTIBODY (BEAKER) Nonreactive Nonreactive (test code = 367) HIV-1 ANTIGEN WITH HIV-1/2 [id number] 10:03:00 Test Item Value Reference Range Interpretation Comments HIV-1 ANTIGEN WITH HIV 1\T\2 Nonreactive Nonreactive ANTIBODY (2) (BEAKER) (test code = 2586) PTH, [id number] 09:45:00 Test Item Value Reference Range Interpretation Comments PARATHYROID HORMONE INTACT 308.0 pg/mL 8.5-72.5 H (BEAKER) (test code = 577) [id number] 09:31:00 Test Item Value Reference Range Interpretation [...] 2022-03-02 19:05:00-00:00 Suhas Block MD: MODIFY, PERFORMEvent [facility] Display: History and PhysicalAuthored Date: [id number] and Physical Primary Team Name:Team Contact Info:PCP [...] Date/Time Sodium Lvl 135 mEq/L 02/28/2022 12:44 CAR STORER Potassium Lvl 4.3 mEq/L 02/28/2022 12:44 CAR STORER Chloride Lvl 98 mEq/L 02/28/2022 12:44 CAR STORER CO2 29 mEq/L 02/28/2022 12:44 CAR STORER AGAP 12.3 mEq/L 02/28/2022 12:44 CAR STORER Creatinine Lvl 6.77 mg/dL (High) 02/28/2022 12:44 CAR STORER eGFR 7 mL/min/1.73m2 02/28/2022 12:44 CAR STORER BUN 50 mg/dL (High) 02/28/2022 12:44 CAR STORER B/C Ratio 7 02/28/2022 12:44 CAR STORER Glucose Lvl 88 mg/dL 02/28/2022 12:44 CAR STORER Total Protein 6.8 g/dL 02/28/2022 12:44 CAR STORER Albumin Lvl 2.6 g/dL (Low) 02/28/2022 12:44 CAR STORER Globulin 4.2 g/dL 02/28/2022 12:44 CAR STORER A/G Ratio 0.6 (Low) 02/28/2022 12:44 CAR STORER Calcium Lvl 8.9 mg/dL 02/28/2022 12:44 CAR STORER ALT AST 10 unit/L 02/28/2022 12:44 CAR STORER Alk Phos 129 unit/L 02/28/2022 12:44 CAR STORER Bili Total 0.4 mg/dL 02/28/2022 12:44 CAR STORER Total CK 54 unit/L 02/28/2022 12:44 CAR STORER WBC 5.0 K/CMM 02/28/2022 12:44 CAR STORER RBC 3.28 M/CMM (Low) 02/28/2022 12:44 CAR STORER Hgb 11.3 g/dL (Low) 02/28/2022 12:44 CAR STORER Hct 34.1 % (Low) 02/28/2022 12:44 CAR STORER MCV 104.0 fL (High) 02/28/2022 12:44 CAR STORER MCH 34.4 pg (High) 02/28/2022 12:44 CAR STORER MCHC 33.1 g/dL 02/28/2022 12:44 CAR STORER RDW 17.9 % (High) 02/28/2022 12:44 CAR STORER MPV 8.1 fL 02/28/2022 12:44 CAR STORER Platelet 302 K/CMM 02/28/2022 12:44 CAR STORER Segs 57.6 % 02/28/2022 12:44 CAR STORER Lymphocytes 33.5 % 02/28/2022 12:44 CAR STORER Monocytes 6.3 % 02/28/2022 12:44 CAR STORER Eosinophils 2.0 % 02/28/2022 12:44 CAR STORER Basophils 0.6 % 02/28/2022 12:44 CAR STORER Neutrophils # 2.9 K/CMM 02/28/2022 12:44 CAR STORER Lymphocytes # 1.7 K/CMM 02/28/2022 12:44 CAR STORER Monocytes # 0.3 K/CMM 02/28/2022 12:44 CAR STORER Eosinophils # 0.1 K/CMM 02/28/2022 12:44 CAR STORER PT 14.5 seconds 02/28/2022 12:44 CAR STORER INR 1.14 02/28/2022 12:44 CAR STORER PTT 36.9 seconds (High) 02/28/2022 12:44 CAR STORER Coronavirus (COVID-19) CHERIE Not Detected 02/28/2022 12:44 CAR STORER Pertinent Imaging: Brain Stroke wo contrast CT 02/28/22 12:49:55IMPRESSION:1. No acute intracranial abnormalities are visible.2. Chronic lacunar infarcts of the bilateral basal ganglia are noted. ASSESSMENT:ASPECTS ([place] Stroke Program Early CT Score) is 10. Matt Kohli MD On 02/28/2022 12:48:58; [id number] Signed By: Matt Kohli MD 02/28/22 12:53:32Radiation [...] No occlusion or significant stenosis of the inaja of [place]in[place].4. No cerebral aneurysms are identified. 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 [id number] of chronic disease PLAN- Will admit as [...] 2022-03-02 19:05:00-00:00 Suhas Block MD: MODIFY, [facility]vent [facility] Display: History and PhysicalAuthored Date: [id number] and Physical Primary Team Name:Team Contact Info:PCP [...] Date/Time Sodium Lvl 135 mEq/L 02/28/2022 12:44 CAR STORER Potassium Lvl 4.3 mEq/L 02/28/2022 12:44 CAR STORER Chloride Lvl 98 mEq/L 02/28/2022 12:44 CAR STORER CO2 29 mEq/L 02/28/2022 12:44 CAR STORER AGAP 12.3 mEq/L 02/28/2022 12:44 CAR STORER Creatinine Lvl 6.77 mg/dL (High) 02/28/2022 12:44 CAR STORER eGFR 7 mL/min/1.73m2 02/28/2022 12:44 CAR STORER BUN 50 mg/dL (High) 02/28/2022 12:44 CAR STORER B/C Ratio 7 02/28/2022 12:44 CAR STORER Glucose Lvl 88 mg/dL 02/28/2022 12:44 CAR STORER Total Protein 6.8 g/dL 02/28/2022 12:44 CAR STORER Albumin Lvl 2.6 g/dL (Low) 02/28/2022 12:44 CAR STORER Globulin 4.2 g/dL 02/28/2022 12:44 CAR STORER A/G Ratio 0.6 (Low) 02/28/2022 12:44 CAR STORER Calcium Lvl 8.9 mg/dL 02/28/2022 12:44 CAR STORER ALT AST 10 unit/L 02/28/2022 12:44 CAR STORER Alk Phos 129 unit/L 02/28/2022 12:44 CAR STORER Bili Total 0.4 mg/dL 02/28/2022 12:44 CAR STORER Total CK 54 unit/L 02/28/2022 12:44 CAR STORER WBC 5.0 K/CMM 02/28/2022 12:44 CAR STORER RBC 3.28 M/CMM (Low) 02/28/2022 12:44 CAR STORER Hgb 11.3 g/dL (Low) 02/28/2022 12:44 CAR STORER Hct 34.1 % (Low) 02/28/2022 12:44 CAR STORER MCV 104.0 fL (High) 02/28/2022 12:44 CAR STORER MCH 34.4 pg (High) 02/28/2022 12:44 CAR STORER MCHC 33.1 g/dL 02/28/2022 12:44 CAR STORER RDW 17.9 % (High) 02/28/2022 12:44 CAR STORER MPV 8.1 fL 02/28/2022 12:44 CAR STORER Platelet 302 K/CMM 02/28/2022 12:44 CAR STORER Segs 57.6 % 02/28/2022 12:44 CAR STORER Lymphocytes 33.5 % 02/28/2022 12:44 CAR STORER Monocytes 6.3 % 02/28/2022 12:44 CAR STORER Eosinophils 2.0 % 02/28/2022 12:44 CAR STORER Basophils 0.6 % 02/28/2022 12:44 CAR STORER Neutrophils # 2.9 K/CMM 02/28/2022 12:44 CAR STORER Lymphocytes # 1.7 K/CMM 02/28/2022 12:44 CAR STORER Monocytes # 0.3 K/CMM 02/28/2022 12:44 CAR STORER Eosinophils # 0.1 K/CMM 02/28/2022 12:44 CAR STORER PT 14.5 seconds 02/28/2022 12:44 CAR STORER INR 1.14 02/28/2022 12:44 CAR STORER PTT 36.9 seconds (High) 02/28/2022 12:44 CAR STORER Coronavirus (COVID-19) CHERIE Not Detected 02/28/2022 12:44 CAR STORER Pertinent Imaging: Brain Stroke wo contrast CT 02/28/22 12:49:55IMPRESSION:1. No acute intracranial abnormalities are visible.2. Chronic lacunar infarcts of the bilateral basal ganglia are noted. ASSESSMENT:ASPECTS ([place] Stroke Program Early CT Score) is 10. Matt Kohli MD On 02/28/2022 12:48:58; [id number] Signed By: Matt Kohli MD 02/28/22 12:53:32Radiation [...] No occlusion or significant stenosis of the inaja of [place].4. No cerebral aneurysms are identified. 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 [id number] of chronic disease PLAN- Will admit as [...] 2022-03-02 19:05:00-00:00 Suhas Block MD: MODIFY, [facility] Display: History and PhysicalAuthored Date: [id number] and Physical Primary Team Name:Team Contact Info:PCP [...] Date/Time Sodium Lvl 135 mEq/L 02/28/2022 12:44 CAR STORER Potassium Lvl 4.3 mEq/L 02/28/2022 12:44 CAR STORER Chloride Lvl 98 mEq/L 02/28/2022 12:44 CAR STORER CO2 29 mEq/L 02/28/2022 12:44 CAR STORER AGAP 12.3 mEq/L 02/28/2022 12:44 CAR STORER Creatinine Lvl 6.77 mg/dL (High) 02/28/2022 12:44 CAR STORER eGFR 7 mL/min/1.73m2 02/28/2022 12:44 CAR STORER BUN 50 mg/dL (High) 02/28/2022 12:44 CAR STORER B/C Ratio 7 02/28/2022 12:44 CAR STORER Glucose Lvl 88 mg/dL 02/28/2022 12:44 CAR STORER Total Protein 6.8 g/dL 02/28/2022 12:44 CAR STORER Albumin Lvl 2.6 g/dL (Low) 02/28/2022 12:44 CAR STORER Globulin 4.2 g/dL 02/28/2022 12:44 CAR STORER A/G Ratio 0.6 (Low) 02/28/2022 12:44 CAR STORER Calcium Lvl 8.9 mg/dL 02/28/2022 12:44 CAR STORER ALT AST 10 unit/L 02/28/2022 12:44 CAR STORER Alk Phos 129 unit/L 02/28/2022 12:44 CAR STORER Bili Total 0.4 mg/dL 02/28/2022 12:44 CAR STORER Total CK 54 unit/L 02/28/2022 12:44 CAR STORER WBC 5.0 K/CMM 02/28/2022 12:44 CAR STORER RBC 3.28 M/CMM (Low) 02/28/2022 12:44 CAR STORER Hgb 11.3 g/dL (Low) 02/28/2022 12:44 CAR STORER Hct 34.1 % (Low) 02/28/2022 12:44 CAR STORER MCV 104.0 fL (High) 02/28/2022 12:44 CAR STORER MCH 34.4 pg (High) 02/28/2022 12:44 CAR STORER MCHC 33.1 g/dL 02/28/2022 12:44 CAR STORER RDW 17.9 % (High) 02/28/2022 12:44 CAR STORER MPV 8.1 fL 02/28/2022 12:44 CAR STORER Platelet 302 K/CMM 02/28/2022 12:44 CAR STORER Segs 57.6 % 02/28/2022 12:44 CAR STORER Lymphocytes 33.5 % 02/28/2022 12:44 CAR STORER Monocytes 6.3 % 02/28/2022 12:44 CAR STORER Eosinophils 2.0 % 02/28/2022 12:44 CAR STORER Basophils 0.6 % 02/28/2022 12:44 CAR STORER Neutrophils # 2.9 K/CMM 02/28/2022 12:44 CAR STORER Lymphocytes # 1.7 K/CMM 02/28/2022 12:44 CAR STORER Monocytes # 0.3 K/CMM 02/28/2022 12:44 CAR STORER Eosinophils # 0.1 K/CMM 02/28/2022 12:44 CAR STORER PT 14.5 seconds 02/28/2022 12:44 CAR STORER INR 1.14 02/28/2022 12:44 CAR STORER PTT 36.9 seconds (High) 02/28/2022 12:44 CAR STORER Coronavirus (COVID-19) CHERIE Not Detected 02/28/2022 12:44 CAR STORER Pertinent Imaging: Brain Stroke wo contrast CT 02/28/22 12:49:55IMPRESSION:1. No acute intracranial abnormalities are visible.2. Chronic lacunar infarcts of the bilateral basal ganglia are noted. ASSESSMENT:ASPECTS ([place] Stroke Program Early CT Score) is 10. Matt Kohli MD On 02/28/2022 12:48:58; [id number] Signed By: Matt Kohli MD 02/28/22 12:53:32Radiation [...] No occlusion or significant stenosis of the inaja of [place].4. No cerebral aneurysms are identified. 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 [id number] of chronic disease PLAN- Will admit as [...] 2022-03-02 19:05:00-00:00 Suhas Block MD: MODIFY, [facility] Display: History and PhysicalAuthored Date: [id number] and Physical Primary Team Name:Team Contact Info:PCP [...] Date/Time Sodium Lvl 135 mEq/L 02/28/2022 12:44 CAR STORER Potassium Lvl 4.3 mEq/L 02/28/2022 12:44 CAR STORER Chloride Lvl 98 mEq/L 02/28/2022 12:44 CAR STORER CO2 29 mEq/L 02/28/2022 12:44 CAR STORER AGAP 12.3 mEq/L 02/28/2022 12:44 CAR STORER Creatinine Lvl 6.77 mg/dL (High) 02/28/2022 12:44 CAR STORER eGFR 7 mL/min/1.73m2 02/28/2022 12:44 CAR STORER BUN 50 mg/dL (High) 02/28/2022 12:44 CAR STORER B/C Ratio 7 02/28/2022 12:44 CAR STORER Glucose Lvl 88 mg/dL 02/28/2022 12:44 CAR STORER Total Protein 6.8 g/dL 02/28/2022 12:44 CAR STORER Albumin Lvl 2.6 g/dL (Low) 02/28/2022 12:44 CAR STORER Globulin 4.2 g/dL 02/28/2022 12:44 CAR STORER A/G Ratio 0.6 (Low) 02/28/2022 12:44 CAR ST[facility]ER Calcium Lvl 8.9 mg/dL 02/28/2022 12:44 [employer] ST[facility]ER ALT AST 10 unit/L 02/28/2022 12:44 [employer] ST[facility]ER Alk Phos 129 unit/L 02/28/2022 12:44 [employer] ST[facility]ER Bili Total 0.4 mg/dL 02/28/2022 12:44 [employer] Total CK 54 unit/L 02/28/2022 12:44 [employer] ST[facility]ER WBC 5.0 K/CMM 02/28/2022 12:44 [employer] ST[facility] RBC 3.28 M/CMM (Low) 02/28/2022 12:44 [employer] ST[facility]ER Hgb 11.3 g/dL (Low) 02/28/2022 12:44 [employer] [facility]ER Hct 34.1 % (Low) 02/28/2022 12:44 [employer] ST[facility]ER MCV 104.0 fL (High) 02/28/2022 12:44 [employer] ST[employer]ER MCH 34.4 pg (High) 02/28/2022 12:44 [employer] ST[facility]ER MCHC 33.1 g/dL 02/28/2022 12:44 [employer] ST[employer]ER RDW 17.9 % (High) 02/28/2022 12:44 [employer]ER MPV 8.1 fL 02/28/2022 12:44 [employer] ST[facility]ER Platelet 302 K/CMM 02/28/2022 12:44 [employer] ST[facility]ER Segs 57.6 % 02/28/2022 12:44 CAR ST[facility]ER Lymphocytes 33.5 % 02/28/2022 12:44 CAR ST[facility]ER Monocytes 6.3 % 02/28/2022 12:44 [employer] ST[facility]ER Eosinophils 2.0 % 02/28/2022 12:44 CAR ST[facility]ER Basophils 0.6 % 02/28/2022 12:44 CAR ST[facility]ER Neutrophils # 2.9 K/CMM 02/28/2022 12:44 [employer] ST[facility]ER Lymphocytes # 1.7 K/CMM 02/28/2022 12:44 CAR ST[facility]ER Monocytes # 0.3 K/CMM 02/28/2022 12:44 CAR ST[facility]ER Eosinophils # 0.1 K/CMM 02/28/2022 12:44 CAR STORER PT 14.5 seconds 02/28/2022 12:44 CAR STORER INR 1.14 02/28/2022 12:44 CAR STORER PTT 36.9 seconds (High) 02/28/2022 12:44 CAR STORER Coronavirus (COVID-19) CHERIE Not Detected 02/28/2022 12:44 CAR STORER Pertinent Imaging: Brain Stroke wo contrast CT 02/28/22 12:49:55IMPRESSION:1. No acute intracranial abnormalities are visible.2. Chronic lacunar infarcts of the bilateral basal ganglia are noted. ASSESSMENT:ASPECTS ([place] Stroke Program Early CT Score) is 10. Matt Kohli MD On 02/28/2022 12:48:58; [id number] Signed By: Matt Kohli MD 02/28/22 12:53:32Radiation [...] No occlusion or significant stenosis of the inaja of [place].4. No cerebral aneurysms are identified. 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 [id number] of chronic disease PLAN- Will admit as [...] MDElectronically Signed: 03/01/22 20:08 2022-03-02 19:05:00-00:00 Suhas Bolck MD: MODIFY, [facility] Display: History and PhysicalAuthored Date: [id number] and Physical Primary Team Name:Team Contact Info:PCP [...] Date/Time Sodium Lvl 135 mEq/L 02/28/2022 12:44 CAR STORER Potassium Lvl 4.3 mEq/L 02/28/2022 12:44 CAR STORER Chloride Lvl 98 mEq/L 02/28/2022 12:44 CAR STORER CO2 29 mEq/L 02/28/2022 12:44 CAR STORER AGAP 12.3 mEq/L 02/28/2022 12:44 CAR STORER Creatinine Lvl 6.77 mg/dL (High) 02/28/2022 12:44 CAR STORER eGFR 7 mL/min/1.73m2 02/28/2022 12:44 CAR STORER BUN 50 mg/dL (High) 02/28/2022 12:44 CAR STORER B/C Ratio 7 02/28/2022 12:44 CAR STORER Glucose Lvl 88 mg/dL 02/28/2022 12:44 CAR STORER Total Protein 6.8 g/dL 02/28/2022 12:44 CAR STORER Albumin Lvl 2.6 g/dL (Low) 02/28/2022 12:44 CAR STORER Globulin 4.2 g/dL 02/28/2022 12:44 CAR STORER A/G Ratio 0.6 (Low) 02/28/2022 12:44 CAR STORER Calcium Lvl 8.9 mg/dL 02/28/2022 12:44 CAR STORER ALT AST 10 unit/L 02/28/2022 12:44 CAR STORER Alk Phos 129 unit/L 02/28/2022 12:44 CAR STORER Bili Total 0.4 mg/dL 02/28/2022 12:44 CAR STORER Total CK 54 unit/L 02/28/2022 12:44 CAR STORER WBC 5.0 K/CMM 02/28/2022 12:44 CAR STORER RBC 3.28 M/CMM (Low) 02/28/2022 12:44 CAR STORER Hgb 11.3 g/dL (Low) 02/28/2022 12:44 CAR STORER Hct 34.1 % (Low) 02/28/2022 12:44 CAR STORER MCV 104.0 fL (High) 02/28/2022 12:44 CAR STORER MCH 34.4 pg (High) 02/28/2022 12:44 CAR STORER MCHC 33.1 g/dL 02/28/2022 12:44 CAR STORER RDW 17.9 % (High) 02/28/2022 12:44 CAR STORER MPV 8.1 fL 02/28/2022 12:44 CAR STORER Platelet 302 K/CMM 02/28/2022 12:44 CAR STORER Segs 57.6 % 02/28/2022 12:44 CAR STORER Lymphocytes 33.5 % 02/28/2022 12:44 CAR STORER Monocytes 6.3 % 02/28/2022 12:44 CAR STORER Eosinophils 2.0 % 02/28/2022 12:44 CAR STORER Basophils 0.6 % 02/28/2022 12:44 CAR STORER Neutrophils # 2.9 K/CMM 02/28/2022 12:44 CAR STORER Lymphocytes # 1.7 K/CMM 02/28/2022 12:44 CAR STORER Monocytes # 0.3 K/CMM 02/28/2022 12:44 CAR STORER Eosinophils # 0.1 K/CMM 02/28/2022 12:44 CAR STORER PT 14.5 seconds 02/28/2022 12:44 CAR STORER INR 1.14 02/28/2022 12:44 CAR STORER PTT 36.9 seconds (High) 02/28/2022 12:44 CAR STORER Coronavirus (COVID-19) CHERIE Not Detected 02/28/2022 12:44 CAR STORER Pertinent Imaging: Brain Stroke wo contrast CT 02/28/22 12:49:55IMPRESSION:1. No acute intracranial abnormalities are visible.2. Chronic lacunar infarcts of the bilateral basal ganglia are noted. ASSESSMENT:ASPECTS ([place] Stroke Program Early CT Score) is 10. Matt Kohli MD On 02/28/2022 12:48:58; [id number] Signed By: Matt Kohli MD 02/28/22 12:53:32Radiation [...] No occlusion or significant stenosis of the inaja of [place].4. No cerebral aneurysms are identified. 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 [id number] of chronic disease PLAN- Will admit as [...] Block MDElectronically Signed: 03/01/22 20:08 2022-03-02 19:05:00-00:00 Umair, Suhas MD: MODIFY, [facility] Display: History and PhysicalAuthored Date: [id number] and Physical Primary Team Name:Team Contact Info:PCP [...] Date/Time Sodium Lvl 135 mEq/L 02/28/2022 12:44 CAR STORER Potassium Lvl 4.3 mEq/L 02/28/2022 12:44 CAR STORER Chloride Lvl 98 mEq/L 02/28/2022 12:44 CAR STORER CO2 29 mEq/L 02/28/2022 12:44 CAR STORER AGAP 12.3 mEq/L 02/28/2022 12:44 CAR STORER Creatinine Lvl 6.77 mg/dL (High) 02/28/2022 12:44 CAR STORER eGFR 7 mL/min/1.73m2 02/28/2022 12:44 CAR STORER BUN 50 mg/dL (High) 02/28/2022 12:44 CAR STORER B/C Ratio 7 02/28/2022 12:44 CAR STORER Glucose Lvl 88 mg/dL 02/28/2022 12:44 CAR STORER Total Protein 6.8 g/dL 02/28/2022 12:44 CAR STORER Albumin Lvl 2.6 g/dL (Low) 02/28/2022 12:44 CAR STORER Globulin 4.2 g/dL 02/28/2022 12:44 CAR STORER A/G Ratio 0.6 (Low) 02/28/2022 12:44 CAR STORER Calcium Lvl 8.9 mg/dL 02/28/2022 12:44 CAR STORER ALT AST 10 unit/L 02/28/2022 12:44 CAR STORER Alk Phos 129 unit/L 02/28/2022 12:44 CAR STORER Bili Total 0.4 mg/dL 02/28/2022 12:44 CAR STORER Total CK 54 unit/L 02/28/2022 12:44 CAR STORER WBC 5.0 K/CMM 02/28/2022 12:44 CAR STORER RBC 3.28 M/CMM (Low) 02/28/2022 12:44 CAR STORER Hgb 11.3 g/dL (Low) 02/28/2022 12:44 CAR STORER Hct 34.1 % (Low) 02/28/2022 12:44 CAR STORER MCV 104.0 fL (High) 02/28/2022 12:44 CAR STORER MCH 34.4 pg (High) 02/28/2022 12:44 CAR STORER MCHC 33.1 g/dL 02/28/2022 12:44 CAR STORER RDW 17.9 % (High) 02/28/2022 12:44 CAR STORER MPV 8.1 fL 02/28/2022 12:44 CAR STORER Platelet 302 K/CMM 02/28/2022 12:44 CAR STORER Segs 57.6 % 02/28/2022 12:44 CAR STORER Lymphocytes 33.5 % 02/28/2022 12:44 CAR STORER Monocytes 6.3 % 02/28/2022 12:44 CAR STORER Eosinophils 2.0 % 02/28/2022 12:44 CAR STORER Basophils 0.6 % 02/28/2022 12:44 CAR STORER Neutrophils # 2.9 K/CMM 02/28/2022 12:44 CAR STORER Lymphocytes # 1.7 K/CMM 02/28/2022 12:44 CAR STORER Monocytes # 0.3 K/CMM 02/28/2022 12:44 CAR STORER Eosinophils # 0.1 K/CMM 02/28/2022 12:44 CAR STORER PT 14.5 seconds 02/28/2022 12:44 CAR STORER INR 1.14 02/28/2022 12:44 CAR STORER PTT 36.9 seconds (High) 02/28/2022 12:44 CAR STORER Coronavirus (COVID-19) CHERIE Not Detected 02/28/2022 12:44 CAR STORER Pertinent Imaging: Brain Stroke wo contrast CT 02/28/22 12:49:55IMPRESSION:1. No acute intracranial abnormalities are visible.2. Chronic lacunar infarcts of the bilateral basal ganglia are noted. ASSESSMENT:ASPECTS ([place] Stroke Program Early CT Score) is 10. Matt Kohli MD On 02/28/2022 12:48:58; [id number] Signed By: Matt Kohli MD 02/28/22 12:53:32Radiation [...] No occlusion or significant stenosis of the inaja of [place].4. No cerebral aneurysms are identified. 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 eDrrick López MD On 07/15/2022 13:14:39; VR-[id number] [id number] 2022-07-15 PROCEDURE INFORMATION: [facility] 12:38:07-00:00 Exam: XR Left Tibia and Fibula [...] Derrick López MD On 07/15/2022 13:14:39; VR-AGINZ0 [id number] 2022-07-15 PROCEDURE INFORMATION: [facility] 12:38:07-00:00 Exam: XR Left Tibia and Fibula [...] Derrick López MD On 07/15/2022 13:14:39; VR-AGINZ0 [id number] 2022-07-15 PROCEDURE INFORMATION: [facility] 12:38:07-00:00 Exam: XR Left Tibia and Fibula [...] Derrick López MD On 07/15/2022 13:14:39; VR-AGINZ0 [id number] 2022-07-15 PROCEDURE INFORMATION: [facility] 12:38:07-00:00 Exam: XR Left Tibia and Fibula [...] Derrick López MD On 07/15/2022 13:14:39; VR-AGINZ0 [id number] 2022-07-15 PROCEDURE INFORMATION: [facility] 12:38:07-00:00 Exam: XR Left Tibia and Fibula [...] Derrick López MD On 07/15/2022 13:14:39; VR-AGINZ0 [id number] 2022-06-06 PROCEDURE INFORMATION: [facility] 16:40:48-00:00 Exam: XR Chest Exam date and [...] findings. Fabricio Wiggins MD On 06/06/2022 17:42:53; RED-C [id number] 2022-06-06 PROCEDURE INFORMATION: [facility] 16:40:48-00:00 Exam: XR Chest Exam date and [...] findings. Fabricio Wiggins MD On 06/06/2022 17:42:53; RED-C [id number] 2022-06-06 PROCEDURE INFORMATION: [facility] 16:40:48-00:00 Exam: XR Chest Exam date and [...] findings. Fabricio Wiggins MD On 06/06/2022 17:42:53; VR-C [id number] 2022-06-06 PROCEDURE INFORMATION: [facility] 16:40:48-00:00 Exam: XR Chest Exam date and [...] findings. Fabricio Wiggins MD On 06/06/2022 17:42:53; VR-C [id number] 2022-06-06 PROCEDURE INFORMATION: [facility] 16:40:48-00:00 Exam: XR Chest Exam date and [...] right humerus. IMPRESSION: No acute cardiopulmonary findings. Farbicio Wiggins MD On 06/06/2022 17:42:53; VR-C [id number] 2022-06-06 PROCEDURE INFORMATION: [facility] 16:40:48-00:00 Exam: XR Chest Exam date and [...] findings. Fabricio Wiggins MD On 06/06/2022 17:42:53; RED-C [id number] 2022-03-28 Radiation Dose CTDIVOL = 0 (mGy): DLP = 896.13 ( mGy-cm) [facility] 19:50:00-00:00 PROCEDURE INFORMATION: Exam: CT Head Without [...] Neno Tao MD On 03/28/2022 21:26:59; VR-[id number] [id number] 2022-03-28 Radiation Dose CTDIVOL = 0 (mGy): DLP = 896.13 ( mGy-cm) [facility] 19:50:00-00:00 PROCEDURE INFORMATION: Exam: CT Head Without [...] Neno Tao MD On 03/28/2022 21:26:59; VR-[id number] [id number] 2022-03-28 Radiation Dose CTDIVOL = 0 (mGy): DLP = 896.13 ( mGy-cm) [facility] 19:50:00-00:00 PROCEDURE INFORMATION: Exam: CT Head Without [...] Neno Tao MD On 03/28/2022 21:26:59; VR-[id number] [id number] 2022-03-28 Radiation Dose CTDIVOL = 0 (mGy): DLP = 896.13 ( mGy-cm) [facility] 19:50:00-00:00 PROCEDURE INFORMATION: Exam: CT Head Without [...] Neno Tao MD On 03/28/2022 21:26:59; VR-[id number] [id number] 2022-03-28 Radiation Dose CTDIVOL = 0 (mGy): DLP = 896.13 ( mGy-cm) [facility] 19:50:00-00:00 PROCEDURE INFORMATION: Exam: CT Head Without [...] Neno Tao MD On 03/28/2022 21:26:59; VR-[id number] [id number] 2022-03-28 Radiation Dose CTDIVOL = 0 (mGy): DLP = 896.13 ( mGy-cm) [facility] 19:50:00-00:00 PROCEDURE INFORMATION: Exam: CT Head Without [...] Neno Tao MD On 03/28/2022 21:26:59; VR-BMILE0 [id number] 2022-03-28 PROCEDURE INFORMATION: [facility] 19:40:54-00:00 Exam: XR Chest Exam date and [...] findings. Herve Drake MD On 03/28/2022 20:36:57; NHI [id number] 0964-01-03 PROCEDURE INFORMATION: [facility] 19:40:54-00:00 Exam: XR Chest Exam date and [...] findings. Herve Drake MD On 03/28/2022 20:36:57; NHI [id number] 4839-01-03 PROCEDURE INFORMATION: [facility] :40:54-00:00 Exam: XR Chest Exam date and time: [...] findings. Herve Drake MD On 03/28/2022 20:36:57; NHI [id number] 4792-01-03 PROCEDURE INFORMATION: [facility] 19:40:54-00:00 Exam: XR Chest Exam date and [...] findings. Herve Drake MD On 03/28/2022 20:36:57; [id number] 2412-01-03 PROCEDURE INFORMATION: [facility] 19:40:54-00:00 Exam: XR Chest Exam date and [...] findings. Herve Drake MD On 03/28/2022 20:36:57; [facility] [id number] 8427-01-03 PROCEDURE INFORMATION: [facility] 19:40:54-00:00 Exam: XR Chest Exam date and [...] findings. Herve Drake MD On 03/28/2022 20:36:57; RED-AJAIN [id number] 0555-12-06 PROCEDURE INFORMATION: [facility] 15:56:00-00:00 Exam: MR Cervical Spine Without Contrast [...] C5-C6. Eric Benoit MD On 02/28/2022 17:05:23; [id number] 2022-02-28 PROCEDURE INFORMATION: [facility] 15:56:00-00:00 Exam: MR Cervical Spine Without Contrast [...] C5-C6. Eric Benoit MD On 02/28/2022 17:05:23; [id number] 2022-02-28 PROCEDURE INFORMATION: [facility] 15:56:00-00:00 Exam: MR Cervical Spine Without Contrast [...] C5-C6. Eric Benoit MD On 02/28/2022 17:05:23; [id number] 2022-02-28 PROCEDURE INFORMATION: [facility] 15:56:00-00:00 Exam: MR Cervical Spine Without Contrast [...] C5-C6. Eric Benoit MD On 02/28/2022 17:05:23; [id number] 1LK7 2022-02-28 PROCEDURE INFORMATION: [facility] 15:56:00-00:00 Exam: MR Cervical Spine Without Contrast [...] C5-C6. Eric Benoit MD On 02/28/2022 17:05:23; [id number] 1LK7 2022-02-28 PROCEDURE INFORMATION: [facility] 15:56:00-00:00 Exam: MR Cervical Spine Without Contrast [...] C5-C6. Eric Benoit MD On 02/28/2022 17:05:23; [id number] 2022-02-28 PROCEDURE INFORMATION: [facility] 15:25:00-00:00 Exam: MR Head Without Contrast Exam [...] changes. Eric Benoit MD On 02/28/2022 17:01:52; [id number] 2022-02-28 PROCEDURE INFORMATION: [facility] 15:25:00-00:00 Exam: MR Head Without Contrast Exam [...] changes. Eric Benoit MD On 02/28/2022 17:01:52; [id number] 2022-02-28 PROCEDURE INFORMATION: [facility] 15:25:00-00:00 Exam: MR Head Without Contrast Exam [...] changes. Eric Benoit MD On 02/28/2022 17:01:52; [id number] 1LK7 2022-02-28 PROCEDURE INFORMATION: [facility] 15:25:00-00:00 Exam: MR Head Without Contrast Exam [...] changes. Eric Benoit MD On 02/28/2022 17:01:52; [id number] 2022-02-28 PROCEDURE INFORMATION: [facility] ::-:00 Exam: MR Head Without Contrast Exam date [...] changes. Eric Benoit MD On 02/28/2022 17:01:52; [id number] 2022-02-28 PROCEDURE INFORMATION: [facility] :25:-00:00 Exam: MR Head Without Contrast Exam date [...] changes. Eric Benoit MD On 02/28/2022 17:01:52; [id number] 1LK7 2022-02-28 PROCEDURE INFORMATION: [facility] 12:58:07-00:00 Exam: XR Chest Exam date and [...] Nicolasa Spicer MD On 02/28/2022 13:30:43; VR-HC [id number] 2022-02-28 PROCEDURE INFORMATION: [facility] 12:58:07-00:00 Exam: XR Chest Exam date and [...] findings. Nicolasa Spicer MD On 02/28/2022 13:30:43; [facility] [id number] 2022-02-28 PROCEDURE INFORMATION: [facility] 12:58:07-00:00 Exam: XR Chest Exam date and [...] findings. Nicolasa Spicer MD On 02/28/2022 13:30:43; [facility] [id number] 2022-02-28 PROCEDURE INFORMATION: [facility] 12:58:07-00:00 Exam: XR Chest Exam date and [...] findings. Nicolasa Spicer MD On 02/28/2022 13:30:43; [facility] [id number] 2022-02-28 PROCEDURE INFORMATION: [facility] 12:58:07-00:00 Exam: XR Chest Exam date and [...] findings. Nicolasa Spicer MD On 02/28/2022 13:30:43; [facility] [id number] 2022-02-28 PROCEDURE INFORMATION: [facility] 12:58:07-00:00 Exam: XR Chest Exam date and [...] findings. Nicolasa Spicer MD On 02/28/2022 13:30:43; [facility] [id number] 2022-02-28 Radiation Dose CTDIVOL = 0 (mGy): DLP = 135.9 (m Gy-cm) [facility] 12:29:53-00:00 PROCEDURE INFORMATION: Exam: CTA Head With Contrast, Arteriography Exam date and time: 02/28/2022 12:31 PM Age: 56 years old Clinical indication: Stroke- like symptoms; Additional info: /left side weakness TECHNIQUE: Imaging protocol: Computed tomographic angiograp hy of the head with contrast. Exam focused on the arteries. 3D rendering (Not supervised by radiologist): KY P and/or 3D reconstructed images were created [...] contrast. 3D rendering (Not supervised by radiologist): KY P and/or 3D reconstructed images were created [...] lumen. Matt Kohli MD On 02/28/2022 12:57:48; RED-MAURA [id number] 2022-02-28 Radiation Dose CTDIVOL = 0 (mGy): DLP = 1045.5 ( mGy-cm) Padma Whitehead 12:29:53-00:00 ADDENDUM: The call to the ordering clinician was initiated on 02/28/2022 at 1248 hours. The findings were discussed with Dr. Whitt on 02/28/2022 at 1252 hours. Matt Kohli MD On 02/28/2022 12:53:06; SHAILESH [id number] Radiation Dose CTDIVOL = 0 (mGy): DLP [...] bas al ganglia are noted. ASSESSMENT: ASPECTS ([place] Stroke Program Early CT Score) is 10. Matt Kohli MD On 02/28/2022 12:48:58; SHAILESH [id number] 2022-02-28 Radiation Dose CTDIVOL = 0 (mGy): DLP = 135.9 (m Gy-cm) [facility] 12:29:53-00:00 PROCEDURE INFORMATION: Exam: CTA Head With Contrast, Arteriography Exam date and time: 02/28/2022 12:31 PM Age: 56 years old Clinical indication: Stroke- like symptoms; Additional info: /left side weakness TECHNIQUE: Imaging protocol: Computed tomographic angiograp hy of the head with contrast. Exam focused on the arteries. 3D rendering (Not supervised by radiologist): KY P and/or 3D reconstructed images were created [...] contrast. 3D rendering (Not supervised by radiologist): KY P and/or 3D reconstructed images were created [...] Matt Kohli MD On 02/28/2022 12:57:48; VR-BPRAN [id number] 2022-02-28 Radiation Dose CTDIVOL = 0 (mGy): DLP = 1045.5 ( mGy-cm) [facility] 12:29:53-00:00 ADDENDUM: The call to the ordering clinician was initiated on 02/28/2022 at 1248 hours. The findings were discussed with Dr. Whitt on 02/28/2022 at 1252 hours. Matt Kohli MD On 02/28/2022 12:53:06; VR-BPRAN [id number] Radiation Dose CTDIVOL = 0 (mGy): DLP [...] bas al ganglia are noted. ASSESSMENT: ASPECTS ([place] Stroke Program Early CT Score) is 10. Matt Kohli MD On 02/28/2022 12:48:58; VR-BPRAN [id number] 2022-02-28 Radiation Dose CTDIVOL = 0 (mGy): DLP = 135.9 (m Gy-cm) [facility] 12:29:53-00:00 PROCEDURE INFORMATION: Exam: CTA Head With Contrast, Arteriography Exam date and time: 02/28/2022 12:31 PM Age: 56 years old Clinical indication: Stroke- like symptoms; Additional info: /left side weakness TECHNIQUE: Imaging protocol: Computed tomographic angiograp hy of the head with contrast. Exam focused on the arteries. 3D rendering (Not supervised by radiologist): KY P and/or 3D reconstructed images were created [...] contrast. 3D rendering (Not supervised by radiologist): KY P and/or 3D reconstructed images were created [...] Matt Kohli MD On 02/28/2022 12:57:48; VR-BPRAN [id number] 2022-02-28 Radiation Dose CTDIVOL = 0 (mGy): DLP = 1045.5 ( mGy-cm) [facility] 12:29:53-00:00 ADDENDUM: The call to the ordering clinician was initiated on 02/28/2022 at 1248 hours. The findings were discussed with Dr. Whitt on 02/28/2022 at 1252 hours. Matt Kohli MD On 02/28/2022 12:53:06; VR-BPRAN [id number] Radiation Dose CTDIVOL = 0 (mGy): DLP [...] bas al ganglia are noted. ASSESSMENT: ASPECTS ([place] Stroke Program Early CT Score) is 10. Matt Kohli MD On 02/28/2022 12:48:58; VR-MAURA [id number] 2022-02-28 Radiation Dose CTDIVOL = 0 (mGy): DLP = 135.9 (m Gy-cm) [facility] 12:29:53-00:00 PROCEDURE INFORMATION: Exam: CTA Head With Contrast, Arteriography Exam date and time: 02/28/2022 12:31 PM Age: 56 years old Clinical indication: Stroke- like symptoms; Additional info: /left side weakness TECHNIQUE: Imaging protocol: Computed tomographic angiograp hy of the head with contrast. Exam focused on the arteries. 3D rendering (Not supervised by radiologist): KY P and/or 3D reconstructed images were created [...] contrast. 3D rendering (Not supervised by radiologist): KY P and/or 3D reconstructed images were created [...] lumen. Matt Kohli MD On 02/28/2022 12:57:48; RED-MAURA [id number] 2022-02-28 Radiation Dose CTDIVOL = 0 (mGy): DLP = 1045.5 ( mGy-cm) [facility] 12:29:53-00:00 ADDENDUM: The call to the ordering clinician was initiated on 02/28/2022 at 1248 hours. The findings were discussed with Dr. Whitt on 02/28/2022 at 1252 hours. Matt Kohli MD On 02/28/2022 12:53:06; SHAILESH [id number] Radiation Dose CTDIVOL = 0 (mGy): DLP [...] bas al ganglia are noted. ASSESSMENT: ASPECTS ([place] Stroke Program Early CT Score) is 10. Matt Kohli MD On 02/28/2022 12:48:58; SHAILESH [id number] 2022-02-28 Radiation Dose CTDIVOL = 0 (mGy): DLP = 135.9 (m Gy-cm) [facility] 12:29:53-00:00 PROCEDURE INFORMATION: Exam: CTA Head With Contrast, Arteriography Exam date and time: 02/28/2022 12:31 PM Age: 56 years old Clinical indication: Stroke- like symptoms; Additional info: /left side weakness TECHNIQUE: Imaging protocol: Computed tomographic angiograp hy of the head with contrast. Exam focused on the arteries. 3D rendering (Not supervised by radiologist): KY P and/or 3D reconstructed images were created [...] contrast. 3D rendering (Not supervised by radiologist): KY P and/or 3D reconstructed images were created [...] Matt Kohli MD On 02/28/2022 12:57:48; VR-BPRAN [id number] 2022-02-28 Radiation Dose CTDIVOL = 0 (mGy): DLP = 1045.5 ( mGy-cm) Padma Whitehead 12:29:53-00:00 ADDENDUM: The call to the ordering clinician was initiated on 02/28/2022 at 1248 hours. The findings were discussed with Dr. Whitt on 02/28/2022 at 1252 hours. Matt Kohli MD On 02/28/2022 12:53:06; VR-BPRAN [id number] Radiation Dose CTDIVOL = 0 (mGy): DLP [...] bas al ganglia are noted. ASSESSMENT: ASPECTS ([place] Stroke Program Early CT Score) is 10. Matt Kohli MD On 02/28/2022 12:48:58; [id number] 2022-02-28 Radiation Dose CTDIVOL = 0 (mGy): [...] arteries. 3D rendering (Not supervised by radiologist): KY P and/or 3D reconstructed images were created [...] contrast. 3D rendering (Not supervised by radiologist): KY P and/or 3D reconstructed images were created [...] Matt Kohli MD On 02/28/2022 12:57:48; VR-BPRAN [id number] 2022-02-28 Radiation Dose CTDIVOL = 0 (mGy): DLP = 1045.5 ( mGy-cm) [facility] 12:29:53-00:00 ADDENDUM: The call to the ordering clinician was initiated on 02/28/2022 at 1248 hours. The findings were discussed with Dr. Whitt on 02/28/2022 at 1252 hours. Matt Kohli MD On 02/28/2022 12:53:06; VR-BPRAN [id number] Radiation Dose CTDIVOL = 0 (mGy): DLP [...] chronic lacunar infarcts of the bilateral ba amrianela ganglia. There is no evidence of acute [...] bas al ganglia are noted. ASSESSMENT: ASPECTS ([place] Stroke Program Early CT Score) is 10. Matt Kohli MD On 02/28/2022 12:48:58; VR-BPRAN [id number] 2021-08-19 [facility] 11:32:40-00:00 OPERATIVE/PROCEDURE REPORT MAKI STRATTON FACILITY: [facility] Billing #: [id number] Room: [address] [place] [address] MR #: [id number] : 1965 DATE OF PROCEDURE: 08/18/2021 SURGEON: Gail Cunha MD PROCEDURE: Electroencephalogram. SUBJECTIVE: Ms. Coronado is a 56-year-old female, undergoing EEG to look for any seizure foci. TECHNIQUE: This EEG was acquired by [facility] 10/20 electrode placement system. DESCRIPTION OF PROCEDURE: [...] ruled out. Clinical co rrelation is recommended. NIKHILK/MODL /[id number] 2020-03-10 PROCEDURE INFORMATION: ISRA SIMMONS P [place] 17:30:00-00:00 Exam: MR Head Without Contrast Exam date and time: 03/10/2020 5:16 PM Age: 54 years old Clinical indication: Secondary parkinsonism, uns pecified; Additional info: G21.9 secondary parkinsonism, unspecified/g21.9 secondary parkinsonism, unspecified TECHNIQUE: Imaging protocol: MR of the head without contras t. 3D rendering (Not supervised by radiologist): [place] P and/or 3D reconstructed images were created [...] mass. Ravinder Salazar MD On 03/11/2020 07:20:17; RED-KIRSTIE [id number] 2020-03-10 PROCEDURE INFORMATION: TROY diaz 17:30:00-00:00 Exam: MR Head Without Contrast Exam date and time: 03/10/2020 5:16 PM Age: 54 years old Clinical indication: Secondary parkinsonism, uns pecified; Additional info: G21.9 secondary parkinsonism, unspecified/g21.9 secondary parkinsonism, unspecified TECHNIQUE: Imaging protocol: MR of the head without contras t. 3D rendering (Not supervised by radiologist): [place] P and/or 3D reconstructed images were created [...] Ravinder Salazar MD On 03/11/2020 07:20:17; VR-BB [id number] 2020-03-10 PROCEDURE INFORMATION: TROY diaz 17:30:00-00:00 Exam: MR Head Without Contrast Exam date and time: 03/10/2020 5:16 PM Age: 54 years old Clinical indication: Secondary parkinsonism, uns pecified; Additional info: G21.9 secondary parkinsonism, unspecified/g21.9 secondary parkinsonism, unspecified TECHNIQUE: Imaging protocol: MR of the head without contras t. 3D rendering (Not supervised by radiologist): [place] P and/or 3D reconstructed images were created [...] Ravinder Salazar MD On 03/11/2020 07:20:17; VR-BB [id number] 2020-03-10 PROCEDURE INFORMATION: TROY diaz 17:30:00-00:00 Exam: MR Head Without Contrast Exam date and time: 03/10/2020 5:16 PM Age: 54 years old Clinical indication: Secondary parkinsonism, uns pecified; Additional info: G21.9 secondary parkinsonism, unspecified/g21.9 secondary parkinsonism, unspecified TECHNIQUE: Imaging protocol: MR of the head without contras t. 3D rendering (Not supervised by radiologist): [place] P and/or 3D reconstructed images were created [...] Ravinder Salazar MD On 03/11/2020 07:20:17; VR-BB [id number] 2020-03-10 PROCEDURE INFORMATION: ISRA Campoverde [facility] 17:30:00-00:00 Exam: MR Head Without Contrast Exam date and time: 03/10/2020 5:16 PM Age: 54 years old Clinical indication: Secondary parkinsonism, uns pecified; Additional info: G21.9 secondary parkinsonism, unspecified/g21.9 secondary parkinsonism, unspecified TECHNIQUE: Imaging protocol: MR of the head without contras t. 3D rendering (Not supervised by radiologist): [place] P and/or 3D reconstructed images were created [...] Ravinder Salazar MD On 03/11/2020 07:20:17; VR-BB [id number] 2020-03-10 PROCEDURE INFORMATION: ISRA Campoverde [facility] 17:30:00-00:00 Exam: MR Head Without Contrast Exam date and time: 03/10/2020 5:16 PM Age: 54 years old Clinical indication: Secondary parkinsonism, uns pecified; Additional info: G21.9 secondary parkinsonism, unspecified/g21.9 secondary parkinsonism, unspecified TECHNIQUE: Imaging protocol: MR of the head without contras t. 3D rendering (Not supervised by radiologist): [place] P and/or 3D reconstructed images were created [...] Ravinder Salazar MD On 03/11/2020 07:20:17; DARION [id number]
--- NOTE | 2022-10-16 12:15 | RAD REPORT ---
EXAM DESCRIPTION: RAD - Chest Single View - 10/16/2022 12:00 pm CLINICAL HISTORY: AMS Chest pain. COMPARISON: Chest Single View dated 09/29/2022; Chest Single View dated 02/13/2022; Chest Single View dated 02/10/2022; Chest Single View dated 09/30/2021; Abdomen Pelvis Wo Contrast dated 09/29/2022 FINDINGS: Portable technique limits examination quality. Mild interstitial pulmonary edema suspected. The heart is normal in size. No displaced fractures.Righ t venous catheter has tip in right atrium. IMPRESSION: Mild CHF versus volume overload.
[2022-10-16 12:25] LABS: Troponin High Sensitivity 79.4 pg/mL (<58.9)
[2022-10-16 12:27] LABS: Potassium 2.4 mEq/L (3.5-5.1)
[2022-10-16] MEDS ORDERED: levETIRAcetam 1,000 MG in NA CHLORIDE 0.9% 100 ML IV ONE (12:45)
[2022-10-16 12:48] LABS: Protime INR 0.88
[2022-10-16] MEDS ORDERED: KCL 20 MEQ/100 mL IVPB 100 ML IV ONE (13:33)
[2022-10-16] MEDS ORDERED: ASPIRIN 300 MG/SUPP PR ONE (14:00)
--- NOTE | 2022-10-16 14:14 | ER ---
Nurse's Notes [facility] Name: Maki Tabares Age: 57 yrs Sex: Female : 1965 Arrival Date: 10/16/2022 Time: 10:59 Bed 6 Private MD: Diagnosis: Altered mental status, unspecified;Weakness;Hypo-osmolality and hyponatremia;Hypokalemia Presentation: 10/16 10:59 Coronavirus screen: Client denies travel out of the [place] in the last 14 days. Ebola ss Screen: Patient denies exposure to infectious person. Patient denies travel to an Ebola-affected area in the 21 days before illness onset. 10:59 Method Of Arrival: EMS: [facility] ss 10:59 Chief complaint: EMS states: [facility] home staff reported that they saw ss patient normal at 0900 this morning and then went to check on her again and was minimally responsive at 1030. senior living staff had reported that patient had a similar episode yesterda. An acute neurological deficit is present. The patients blood glucose was checked before arriving to the hospital and was found to be normal. Initial Sepsis Screen: Does the patient meet any 2 criteria? No. Patient's initial sepsis screen is negative. Does the patient have a suspected source of infection? No. Patient's initial sepsis screen is negative. Risk Assessment: Do you want to hurt yourself or someone else? Patient reports no desire to harm self or others. Onset of symptoms is unknown. 10:59 Acuity: TAVIA 2 ss Stroke Activation: Symptom onset < 3 hours Physician: Stroke Attending; Name: ; Notified At: ; Arrived At: Physician: Chief Stroke Resident; Name: ; Notified At: ; Arrived At: Physician: Stroke Resident; Name: ; Notified At: ; Arrived At: Physician: ED Attending; Name: ; Notified At: ; Arrived At: Physician: ED Resident; Name: ; Notified At: ; Arrived At: Historical: - Allergies: 11:33 crawfish; ss 11:33 SHELLFISH; ss - Home Meds: 11:33 apixaban 5 mg oral tablet every 12 hours [Active]; ss - PMHx: 11:33 CVA; Diabetes - NIDDM; Dialysis; peritoneal; Hyperlipidemia; Hypertension; Myocardial ss infarction; Parkinsons; Seizure; - PSHx: 11:33 Dialysis catheter to chest; Total abdominal hysterectomy; ss Screenin:30 [facility] ED Fall Risk Assessment (Adult) History of falling in the last 3 months, ss including since admission No falls in past 3 months (0 pts). Abuse screen: unable to obtain. No obvious signs of abuse/ neglect noted. Assessment: 11:03 [place] Swallow Protocol Exclusion Criteria: Unable to remain alert for testing: Yes ss Exclusion Criteria Result: Defer \T\ Consult. Reassessment: SEE PAPER DOCUMENTATION FOR NIHSS. Neuro: Level of Consciousness is responds to loud verbal stimuli. Will follow simple commands. Opens and closes eyes. Sticks out tongue. Oriented to none. Respiratory: Respiratory effort is even, unlabored. GI: feeding tube present. Derm: Skin is pink, warm \T\ dry. 11:07 Reassessment: Pt to CT via stretcher with Yaritza, RN and Nelda RN. 7 11:30 Reassessment: Dr. Garcia at bedside discussing plan of care with sister at bedside an ss another sister over the phone. Sister on phone state that patient having similar episode yesterday and [facility] staff had reported that maybe she was just tired. Decision to not administer TNK at this time as patient takes Apixaban. 12:48 Reassessment: Pt and sister at bedside updated on plan of care/ admission for further ss evaluation and treatment. Keppra infusing at this time. 13:00 Reassessment: repositioned patient to R side. Family remains at bedside. ss 13:38 Reassessment: Updated family on plan of care. ss 14:00 Reassessment: Patient appears in no apparent distress at this time. No changes from ss previously documented assessment. 19:40 General: POA Mrs. Bedolla [phone]. as6 Vital Signs: 10:56 BP 149 / 71; Pulse 44; Resp 15; Temp 97.2; Pulse Ox 99% on R/A; Pain 0/10; ss 11:42 BP 135 / 68; Pulse 42; Resp 12; ss 10:56 Pain Scale: Adult ss ED Course: 11:03 Patient arrived in ED. jl7 11:04 Ron Garcia MD is Attending Physician. kdr 11:14 CT Stroke Brain w/o Contrast In Process Unspecified. EDMS 11:20 Inserted saline lock: 22 gauge in right antecubital area, using aseptic technique. ss Blood collected. 11:23 EKG done, by ED staff, reviewed by Ron Garcia MD. em1 11:30 Patient has correct armband on for positive identification. Placed in gown. Bed in low ss position. Call light in reach. Side rails up X2. Adult w/ patient. Client placed on continuous cardiac and pulse oximetry monitoring. NIBP monitoring applied. 11:33 Triage completed. ss 11:33 Arm band placed on right wrist. ss 11:58 Depakote Sent. tf2 12:02 Stroke CXR 1 View In Process Unspecified. EDMS 12:15 Yaritza Mcfadden, RN is Primary Nurse. ss 12:48 No provider procedures requiring assistance completed. ss 13:38 Patient admitted, IV remains in place. ss 14:12 Hernesto Davis MD is Hospitalizing Provider. kdr Administered Medications: 12:47 Drug: Keppra IV 1000 mg Route: IV; Rate: calculated rate; Site: right antecubital; ss 13:10 Follow up: IV Status: Completed infusion ss 13:37 Drug: Potassium Chloride IV 20 mEq Route: IV; Rate: calculated rate; Site: right ss antecubital; 22:37 Follow up: Response: No adverse reaction; IV Status: Completed infusion; IV Intake: as6 100ml 14:23 Drug: Aspirin [place] Suppository 300 mg Route: [place]; ss 22:37 Follow up: Response: No adverse reaction as6 Medication: 11:30 VIS not applicable for this client. ss Intake: 22:37 IV: 100ml; Total: 100ml. as6 Outcome: 12:48 Instructed on the need for admit. ss 14:13 Decision to Hospitalize by Provider. kdr 18:54 Admitted to ER Hold. Please see [facility] for further documentation. ss 18:54 Condition: good 22:42 Patient left the ED. as6 Signatures: Dispatcher [employer] EDMS Ron Garcia MD MD [facility] Ramin Porter em1 Yaritza Mcfadden, RN RN ss Mike Holder, RN RN jl7 Jerad Lopez RN RN as6 Nelda Hunt RN RN tf2
--- NOTE | 2022-10-16 14:14 | EDPHYS ---
Physician Documentation [facility] Name: Maki Tabares Age: 57 yrs Sex: Female : 1965 Arrival Date: 10/16/2022 Time: 10:59 Bed 6 Private MD: ED Physician Ron Garcia HPI: 10/16 11:07 This 57 yrs old Black Female presents to ER via Unassigned with complaints of S/S of kdr Possible Stroke. 12:00 This 57 yrs old Black Female presents to ER via EMS with complaints of S/S of Possible kdr Stroke. 11:08 Patient presents via EMS. [facility] a kdr patient for about 3 to 4 weeks. Patient had a prior stroke. Apparently the patient has been bedbound since her arrival there she is DNR. She is fed through a PEG tube. According to EMS, the [facility] staff reported that the patient is normally able to talk. It is unknown to what degree her speech is normal or what her baseline speech is at this time. Nursing also reports that the staff at the [facility] stated that the patient had been having similar symptoms yesterday. Patient opens her eyes to voice. She follows commands including sticking her tongue out,. 12:00 I spoke with the patient's sister who has power of tax associate attorney. She was not present but in kdr route to the facility here. She indicated that the patient had been seen yesterday by her and was exhibiting some of the same symptoms. She said over a period of about 2 to 3 hours the patient eventually came back around her baseline. It was unclear though what was going on at that time. Patient is on several anticonvulsants including Depakote. It is unknown as to her compliance with these medications. But assuming that she has been under the care of the nursing facility and so should have been up-to-date on her dosing. Patient was last seen well at about 9 AM today. At that time she was reported to have been in her usual state of health. EMS then arrived as noted elsewhere.. Onset: The symptoms/episode began/occurred just prior to arrival, this morning. Severity of symptoms: At their worst the symptoms were moderate in the emergency department the symptoms have resolved. The patient has experienced similar episodes in the past, a few times, today's symptoms are similar. The patient has not recently seen a physician. Historical: - Allergies: 11:33 crawfish; ss 11:33 SHELLFISH; ss - Home Meds: 11:33 apixaban 5 mg oral tablet every 12 hours [Active]; ss - PMHx: 11:33 CVA; Diabetes - NIDDM; Dialysis; peritoneal; Hyperlipidemia; Hypertension; Myocardial ss infarction; Parkinsons; Seizure; - PSHx: 11:33 Dialysis catheter to chest; Total abdominal hysterectomy; ss ROS: 12:00 Constitutional: Negative for fever, chills, and weight loss, Eyes: Negative for injury, kdr pain, redness, and discharge, Neck: Negative for injury, pain, and swelling, Cardiovascular: Negative for chest pain, palpitations, and edema, Respiratory: Negative for shortness of breath, cough, wheezing, and pleuritic chest pain, Abdomen/GI: Negative for abdominal pain, nausea, vomiting, diarrhea, and constipation, Back: Negative for injury and pain, MS/Extremity: Negative for injury and deformity, Skin: Negative for injury, rash, and discoloration, Psych: Negative for depression, anxiety, suicide ideation, homicidal ideation, and hallucinations, Allergy/Immunology: Negative for hives, rash, and allergies, Endocrine: Negative for neck swelling, polydipsia, polyuria, polyphagia, and marked weight changes, Hematologic/Lymphatic: Negative for swollen nodes, abnormal bleeding, and unusual bruising. 12:00 Neuro: Positive for altered mental status, speech changes, weakness. Exam: 11:06 ECG was reviewed by the Attending Physician. kdr 12:00 Constitutional: This is a well developed, well nourished patient who is awake, alert, kdr and in no acute distress. Head/Face: Normocephalic, atraumatic. Eyes: Pupils equal round and reactive to light, extra-ocular motions intact. Lids and lashes normal. Conjunctiva and sclera are non-icteric and not injected. Cornea within normal limits. Periorbital areas with no swelling, redness, or edema. Neck: Trachea midline, no thyromegaly or masses palpated, and no cervical lymphadenopathy. Supple, full range of motion without nuchal rigidity, or vertebral point tenderness. No Meningismus. Chest/axilla: Normal chest wall appearance and motion. Nontender with no deformity. No lesions are appreciated. Vital Signs: 10:56 BP 149 / 71; Pulse 44; Resp 15; Temp 97.2; Pulse Ox 99% on R/A; Pain 0/10; ss 11:42 BP 135 / 68; Pulse 42; Resp 12; ss 10:56 Pain Scale: Adult ss MDM: 12:33 Data reviewed: vital signs, nurses notes. ED course: The patient is taking Eliquis and kdr is now longer a candidate for TNK. 14:13 Patient medically screened. [facility] 10/16 11:05 Order name: Basic Metabolic Panel; Complete Time: 12:35 [facility] 10/16 11:05 Order name: CBC with Diff; Complete Time: 11:54 kdr 10/16 11:05 Order name: High Sensitivity Troponin; Complete Time: 12:35 [facility] 10/16 11:05 Order name: Protime (+inr); Complete Time: 13:08 [facility] 10/16 11:05 Order name: Ptt, Activated; Complete Time: 13:08 [facility] 10/16 11:34 Order name: Glucose, Ancillary Testing; Complete Time: 11:54 EDMN 10/16 11:48 Order name: Lactate w/ 2H reflex if indic.; Complete Time: 12:35 tf2 10/16 11:57 Order name: Depakote; Complete Time: 13:08 [facility] 10/16 17:02 Order name: Glucose, Ancillary Testing [facility] 10/16 17:20 Order name: Hemoglobin A1c [facility] 10/16 17:20 Order name: Thyroid Stimulating Hormone [facility] 10/16 17:20 Order name: CBC with Automated Diff EDMN 10/16 17:20 Order name: CBC with Automated Diff EDMS 10/16 17:20 Order name: CBC with Automated Diff EDMS 10/16 17:20 Order name: CBC with Automated Diff EDMS 10/16 17:20 Order name: Comprehensive Metabolic Panel [facility] 10/16 17:20 Order name: Comprehensive Metabolic Panel [facility] 10/16 17:20 Order name: Comprehensive Metabolic Panel [facility] 10/16 17:20 Order name: Comprehensive Metabolic Panel [facility] 10/16 11:05 Order name: CT Stroke Brain w/o Contrast; Complete Time: 11:54 [facility] 10/16 11:05 Order name: Stroke CXR 1 View; Complete Time: 12:35 [facility] 10/16 11:05 Order name: EKG; Complete Time: 11:06 [facility] 10/16 15:44 Order name: Social Service Consult EDMN 10/16 17:20 Order name: CONS Physician Consult [facility] 10/16 17:20 Order name: CONS Physician Consult [facility] 10/16 11:05 Order name: Accucheck; Complete Time: : [facility] 10/16 11:05 Order name: Cardiac monitoring; Complete Time: : [facility] 10/16 11:05 Order name: EKG - Nurse/Tech; Complete Time: : [facility] 10/16 11:05 Order name: IV Saline Lock; Complete Time: : [facility] 10/16 11:05 Order name: Labs collected and sent; Complete Time: : [facility] 10/16 11:05 Order name: NPO; Complete Time: : [facility] 10/16 11:05 Order name: O2 Per Protocol; Complete Time: [facility] 10/16 11:05 Order name: O2 Sat Monitoring; Complete Time: : [facility] 10/16 11:05 Order name: Stroke Swallow Screen; Complete Time: : [facility] 10/16 11:40 Order name: Labs - recollect needed: recollect green and blue top; Complete Time: 11:51 bd EC: Rate is 45 beats/min. Rhythm is regular, Sinus bradycardia with No ectopy. QRS [place] is kdr Normal. [place] interval is normal. QRS interval is normal. Clinical impression: Sinus bradycardia. Administered Medications: 12:47 Drug: Keppra IV 1000 mg Route: IV; Rate: calculated rate; Site: right antecubital; ss 13:10 Follow up: IV Status: Completed infusion ss 13:37 Drug: Potassium Chloride IV 20 mEq Route: IV; Rate: calculated rate; Site: right ss antecubital; 22:37 Follow up: Response: No adverse reaction; IV Status: Completed infusion; IV Intake: as6 100ml 14:23 Drug: Aspirin [place] Suppository 300 mg Route: [place]; ss 22:37 Follow up: Response: No adverse reaction as6 Disposition Summary: 10/16/22 14:13 Hospitalization Ordered Hospitalization Status: Inpatient Admission kdr Provider: Hernesto Davis Condition: Fair kdr Problem: an ongoing problem kdr Symptoms: are unchanged kdr Bed/Room Type: Standard kdr Location: Telemetry/MedSurg (Inpatient)(10/16/22 21:01) cg Room Assignment: [facility](10/16/22 21:41) cg Diagnosis - Altered mental status, unspecified kdr - Weakness kdr - Hypo-osmolality and hyponatremia kdr - Hypokalemia kdr Forms: - Medication Reconciliation Form kdr - SBAR form kdr Signatures: Dispatcher [employer] EDMS Yara Amaral bd Ron Garcia MD MD kdr Yaritza Mcfadden, GABRIELA RN ss Krissy Lezama RN RN cg Jerad Lopez RN as6 Corrections: (The following items were deleted from the chart) 17: 14:13 Telemetry/MedSurg (Inpatient) kdr bd 17: 14:13 kdr bd : 17:21 [facility] ER HOLD bd cg 21: 17:21 ERHOLD- bd : 21:01 cg
[2022-10-16] MEDS ORDERED: HOME MED 1 EA UNK (Topiramate [Topiramate] 50 MG Tablet) PO SCH (15:30)
[2022-10-16] MEDS ORDERED: LEVETIRACETAM 750 MG PO SCH (15:30)
--- NOTE | 2022-10-16 15:30 | P.HP ---
Certification for Inpatient Patient admitted to: Inpatient With expected LOS: >2 Midnights Patient will require the following post-hospital care: Detention Practitioner: I am a practitioner with admitting privileges, knowledge of patient current condition, hospital course, and medical plan of care. Services: Services provided to patient in accordance with Admission requirements found in Title 42 Section 412.3 of the Code of Federal Regulations Patient History Date of Service: 10/16/22 Primary Care Provider: Ryan Reason for admission: altered mental status. History of Present Illness: Patient of mine with a history of Parkinsons and ESRD. she presented with altered mental status from the senior living. She had a similar ER visit on 09/29. Was sent to [facility]. Was supposedly diagnosed with seizures and had a peg tube placed. She was admitted to the senior living [facility] 3 days ago. The patient has been a bit upset about the recent transition. However the patient had some waxing wanning mentation yesterday. Was worse today and his sisters asked to bring her to emergency room. Mrs Tabares can gently wake up and shake her head. She is otherwise not able to communicate. Allergies CRAWFISH Allergy (Uncoded 06/14/21 11:42) Rash Home Medications: Apixaban [Eliquis *] 5 mg PO BID 10/01/21 Carbidopa/Levodopa [Carbidopa-Levodopa 25-100 Tab] 2 tab FT TID 10/01/21 Metoprolol Tartrate 100 mg PO BID 10/01/21 Pravastatin [Pravachol*] 20 mg FT BEDTIME 10/01/21 Rotigotine [Neupro] 1 patch TD DAILY 10/01/21 Topiramate 50 mg PO Q12H 10/01/21 Valproic Acid (As Sodium Salt) [Valproic Acid] 20 ml FT TID 10/01/21 levETIRAcetam [Roweepra] 500 mg PO SEECOM 10/01/21 Amlodipine [Norvasc*] 1 tab PO DAILY 02/23/22 Spironolactone 25 mg PO DAILY 02/23/22 Trazodone [Desyrel*] 25 mg PO BEDTIME 02/23/22 - Past Medical/Surgical History Diabetic: No -: HTN -: Parkinson's -: Depression -: Pseudotumor cerebri -: No evidence of sleep apnea by sleep study -: ESRD/HD (Dr. Mcgarry) -: Anemia -: SEIZURE -: Hysterectomy -: Tubal -: Breast reduction -: TOTAL KNEE REPLACEMENT Psychosocial/ Personal History: Patient lives alone but has family come to check on her frequently - Family History Father -: Hypertension, Diabetes, Stroke Mother -: Hypertension, Diabetes SISTERS -: Hypertension, Cancer Notes: PHLEBITIS, FEMALE CANCER - Social History Alcohol use: No CD- Drugs: No Caffeine use: No Review of Systems 10-point ROS is otherwise unremarkable Physical Examination - Physical Exam General: Alert HEENT: Atraumatic, PERRLA, Mucous membr. moist/pink, EOMI, Sclerae nonicteric Neck: Supple, 2+ carotid pulse no bruit, No LAD, Without JVD or thyroid abnormality Respiratory: Clear to auscultation bilaterally, Normal air movement Cardiovascular: Regular rate/rhythm, Normal S1 S2 Gastrointestinal: Normal bowel sounds, No tenderness Musculoskeletal: No tenderness Integumentary: No rashes Neurological: Normal affect, Abnormal tone Lymphatics: No axilla or inguinal lymphadenopathy - Studies Laboratory Data (last 24 hrs) 10/16/22 11:51: PT 10.5, INR 0.88, APTT 27.0 10/16/22 11:51: Sodium 129 L, Potassium 2.4 L*, BUN 49 H, Creatinine 6.56 H, Glucose 114 H 10/16/22 11:22: WBC 3.70 L, Hgb 9.1 L, Hct 27.3 L, Plt Count 133 L Assessment and Plan - Problems (Diagnosis) (1) Altered mental state Current Visit: Yes Status: Acute Plan: possible delirum due to change in life. Or could be hidden seizure disorder. She is on Keppra. Will consult Dr. Calderón and continue neurochecks. Unfortunately no EEG Machine in the facility. We may need one outpatient Qualifiers: Altered mental status type: stupor Qualified Code(s): R40.1 - Stupor (2) Seizure disorder Current Visit: Yes Status: Acute Plan: continue keppra on the patient. Will discuss with Dr. Calderón. (3) Diabetes Current Visit: No Status: Chronic Plan: chronic problem. Will continue low dose sliding scale. Qualifiers: Diabetes mellitus type: type 2 Diabetes mellitus senior living insulin use: without adjunct faculty for medical terminology use Diabetes mellitus complication status: without complication Qualified Code(s): E11.9 - Type 2 diabetes mellitus without complications (4) ESRD (end stage renal disease) Current Visit: No Status: Chronic Plan: consult Dr. Pennington for management (5) Parkinsons disease Current Visit: No Status: Chronic Plan: continue home medications (6) S/P percutaneous endoscopic gastrostomy (PEG) tube placement Current Visit: Yes Status: Chronic Plan: Will restart PEG feedings in the AM Discharge Plan: Home Plan to discharge in: 24 Hours - Advance Directives Does patient have a Living Will: No Does patient have a Durable POA for Healthcare: No - Code Status/Comfort Care Code Status Assessed: Yes Code Status: Do Not Attempt Resuscitat Physician Review: Patient Assessed, Agree with Above Assessment and Plan Critical Care: No Time Spent Managing Pts Care (In Minutes): 45
[2022-10-16] MEDS: ENOXAPARIN 30 MG/0.3 ML SQ SCH (17:33)
[2022-10-16] MEDS ORDERED: ENOXAPARIN 30 MG/0.3 ML SQ ONE (19:01)
[2022-10-16] MEDS ORDERED: TOPIRAMATE 25 MG TAB PO SCH (21:00)
[2022-10-16] MEDS ORDERED: HOME MED 1 EA UNK (Metoprolol Tartrate [Metoprolol Tartrate] 100 MG Tablet) PO SCH (21:00)
[2022-10-16] MEDS ORDERED: METOPROLOL TAR 50 MG TAB PO SCH (21:00)
[2022-10-16] MEDS ORDERED: APIXABAN 5 MG TABLET PO SCH (21:00)
[2022-10-16] MEDS ORDERED: CARBIDOPA/LEVODOPA 25/100 TAB FT SCH (21:00)
--- NOTE | 2022-10-16 21:21 | P.CNS ---
Date of Consult: 10/16/22 Reason for Consult: ESRD on HD Requesting Physician: Hernesto Davis Primary Care Provider: Dr. Davis Chief Complaint: AMS History of Present Illness: 57 yo BF Parkinsons presented with AMS from the skilled nursing. She had a similar ER visit on 09/29. Was sent to [facility]. She was diagnosed with seizures and had a peg tube placed. She was admitted to the skilled nursing [facility] 3 days ago. The patient has been a bit upset about the recent transition. Yesterday she had some waxing waning mentation, which worsened today. [id number] 11:07 This 57 yrs old Black Female presents to ER via Unassigned with complaints of S/S of kdr Possible Stroke. 12:00 This 57 yrs old Black Female presents to ER via EMS with complaints of S/S of Possible kdr Stroke. 11:08 Patient presents via EMS. She was brought from the skilled nursing where she has been a kdr patient for about 3 to 4 weeks. Patient had a prior stroke. Apparently the patient has been bedbound since her arrival there she is DNR. She is fed through a PEG tube. According to EMS, the skilled nursing staff reported that the patient is normally able to talk. It is unknown to what degree her speech is normal or what her baseline speech is at this time. Nursing also reports that the staff at the skilled nursing stated that the patient had been having similar symptoms yesterday. Patient opens her eyes to voice. She follows commands including sticking her tongue out,. 12:00 I spoke with the patient's sister who has power of risk specialist. She was not present but in kdr route to the facility here. She indicated that the patient had been seen yesterday by her and was exhibiting some of the same symptoms. She said over a period of about 2 to 3 hours the patient eventually came back around her baseline. It was unclear though what was going on at that time. Patient is on several anticonvulsants including Depakote. It is unknown as to her compliance with these medications. But assuming that she has been under the care of the nursing facility and so should have been up-to-date on her dosing. Patient was last seen well at about 9 AM today. At that time she was reported to have been in her usual state of health. EMS then arrived as noted elsewhere.. Onset: The symptoms/episode began/occurred just prior to arrival, Allergies CRAWFISH Allergy (Uncoded 06/14/21 11:42) Rash Home medications list reviewed: Yes Home Medications: Apixaban [Eliquis *] 5 mg PO BID 10/01/21 Carbidopa/Levodopa [Carbidopa-Levodopa 25-100 Tab] 2 tab FT TID 10/01/21 Topiramate 50 mg PO Q12H 10/01/21 Valproic Acid (As Sodium Salt) [Valproic Acid] 20 ml FT TID 10/01/21 Spironolactone 25 mg PO DAILY 02/23/22 Lacosamide 200 mg OSTOMY BID 10/16/22 Levothyroxine [Synthroid] 25 mcg OSTOMY DAILY 10/16/22 Pedi Multivit No.205/Fluoride [[id number]-Czr-Ieom 1 mg Tab Chew] 10/16/22 Topiramate 50 mg OSTOMY M,W,F 10/16/22 levETIRAcetam [Keppra] 10 ml OSTOMY DAILY 10/16/22 levETIRAcetam [Keppra] 10 ml OSTOMY M,W,F 10/16/22 levETIRAcetam [Keppra] 100 mg PO 10/16/22 - Past Medical/Surgical History Diabetic: No -: HTN -: Parkinson's -: Depression -: Pseudotumor cerebri -: No evidence of sleep apnea by sleep study -: ESRD on HD (Dr. Mcgarry) -: Anemia -: SEIZURE -: Hysterectomy -: Tubal -: Breast reduction -: TOTAL KNEE REPLACEMENT Psychosocial/ Personal History: Patient lives alone but has family come to check on her frequently - Family History Father Medical History: Hypertension, Diabetes, Stroke Mother Medical History: Hypertension, Diabetes SISTERS Medical History: Hypertension, Cancer Notes: PHLEBITIS, FEMALE CANCER - Social History Smoking Status: Unknown if ever smoked Alcohol use: No CD- Drugs: No Caffeine use: No Place of Residence: [facility] Review of Systems 10-point ROS is otherwise unremarkable General: Weakness Neurological: Weakness, Confusion Physical Examination Temp Pulse Resp BP Pulse Ox 97.3 F 70 16 110/62 100 10/16/22 19:48 10/16/22 19:48 10/16/22 19:48 10/16/22 19:48 10/16/22 19:48 General: In no apparent distress, Cooperative HEENT: Atraumatic Neck: Supple Respiratory: Normal air movement Cardiovascular: No edema, Regular rate/rhythm Gastrointestinal: Soft and benign, Non-distended Musculoskeletal: No clubbing, No contractures Integumentary: No rashes, No cyanosis Neurological: Normal speech Laboratory Data (last 24 hrs) 10/16/22 11:51: PT 10.5, INR 0.88, APTT 27.0 10/16/22 11:51: Sodium 129 L, Potassium 2.4 L*, BUN 49 H, Creatinine 6.56 H, Glucose 114 H 10/16/22 11:22: WBC 3.70 L, Hgb 9.1 L, Hct 27.3 L, Plt Count 133 L Imagings Data: [address] EXAM DESCRIPTION: RAD - Chest Single View - 10/16/2022 12:00 pm CLINICAL HISTORY: AMS Chest pain. COMPARISON: Chest Single View dated 09/29/2022; Chest Single View dated 02/13/2022 ; Chest Single View dated 02/10/2022; Chest Single View dated 09/30/2021; Abdomen Pelvis Wo Contrast dated 09/29/2022 FINDINGS: Portable technique limits examination quality. Mild interstitial pulmonary edema suspected. The heart is normal in size. No displaced fractures.Right venous catheter has tip in right atrium. IMPRESSION: Mild CHF versus volume overload. [address] EXAM DESCRIPTION: CT - Ct Stroke Brain Wo Cont - 10/16/2022 11:12 am CLINICAL HISTORY: STROKE ALERT Headache, drowsiness, CVA symptomology COMPARISON: Ct Stroke Brain Wo Cont dated 09/29/2022; Head Brain Wo Cont dated 08/04/2020 TECHNIQUE: All CT scans are performed using dose optimization technique as appropriate and may include automated exposure control or mA/KV adjustment according to patient size. FINDINGS: No intracranial hemorrhage, hydrocephalus or extra-axial fluid collection.Hypoattenuating deep white matter structures, unchanged. Generalized brain atrophy is seen.No areas of brain edema or evidence of midline shift. The paranasal sinuses and mastoids are clear. The calvarium is intact. IMPRESSION: No acute intracranial abnormality. Conclusions/Impression: ESRD on HD -HD TIW Hyponatremia Hypokalemia -HD TIW -Replete lytes prn HTN with CKD/ CHF -Hold anti-hypertensives at this time Diastolic CHF, chronic -Low sodium diet -HD with UF Anemia/ Pancytopenia -Monitor CBC -Retacrit PRN CKD MBD -Start Calcitriol
[2022-10-16] MEDS ORDERED: MANNITOL 25% 12.5 GM/50 ML VIAL IV PRN (21:29)
[2022-10-16] MEDS ORDERED: NA CHLORIDE 0.9% 1,000 ML IV PRN (21:29)
[2022-10-16] MEDS ORDERED: EPOETIN ALFA 10,000 UNIT/ML VIAL IV SCH (21:30)
[2022-10-16] MEDS ORDERED: ALBUMIN HUMAN 25% 50 ML IV SCH (22:00)
[2022-10-16 23:43] VITALS: BMI 21.5
[2022-10-17 07:44] LABS: Absolute Lymphocytes (CBC) 2.4 K/uL (0.7-4.9); Hematocrit 23.9 % (36.0-45.0); Lymphocytes % 56.5 % (15.3-44.8); MCV 102.3 fL (80-100); MPV 8.8 fL (7.6-11.3); RBC Red Blood Cell Count 2.33 M/uL (3.86-4.86)
[2022-10-17 08:06] LABS: Magnesium 2.5 mg/dL (1.6-2.4); Uric Acid 3.7 mg/dL (2.6-6.0)
[2022-10-17 08:14] LABS: AST/SGOT 17 U/L (15-37); Albumin 1.8 g/dL (3.4-5.0); Alkaline Phosphatase 121 U/L (45-117); BUN Blood Urea Nitrogen 53 mg/dL (7-18); Bicarbonate 25 mEq/L (21-32); Bilirubin Total 0.4 mg/dL (0.2-1.0); Glomerular Filtration Rate 6 ml/min (=/>90); Glucose Level 81 mg/dL (74-106); Potassium 2.7 mEq/L (3.5-5.1); Sodium Level 129 mEq/L (136-145)
[2022-10-17 08:17] LABS: ALT/SGPT < 6 U/L (13-56)
[2022-10-17] MEDS ORDERED: LORazepam 2 MG/ML VIAL IV ONE (08:18)
--- NOTE | 2022-10-17 08:23 | P.PN ---
Subjective Date of Service: 10/17/22 Primary Care Provider: Dr. Davis Chief Complaint: AMS Subjective: Improving (patient is able to speak short sentences this morning) Review of Systems 10-point ROS is otherwise unremarkable Physical Examination - Vital Signs Temperature: 97.9 F Blood Pressure: 147/77 Pulse: 69 Respirations: 16 Pulse Ox (%): 100 - Physical Exam General: Alert, In no apparent distress HEENT: Atraumatic, PERRLA, EOMI Neck: Supple, JVD not distended Respiratory: Clear to auscultation bilaterally, Normal air movement Cardiovascular: Regular rate/rhythm, Normal S1 S2 Gastrointestinal: Normal bowel sounds, No tenderness Musculoskeletal: No tenderness Integumentary: No rashes Neurological: Normal speech, Normal tone, Normal affect Lymphatics: No axilla or inguinal lymphadenopathy - Studies Laboratory Data (last 24 hrs) 10/16/22 11:51: PT 10.5, INR 0.88, APTT 27.0 10/16/22 11:51: Sodium 129 L, Potassium 2.4 L*, BUN 49 H, Creatinine 6.56 H, Glucose 114 H 10/16/22 11:22: WBC 3.70 L, Hgb 9.1 L, Hct 27.3 L, Plt Count 133 L Assessment And Plan - Current Problems (Diagnosis) (1) Altered mental state Current Visit: Yes Status: Acute Plan: possible delirum due to change in life. Or could be hidden seizure disorder. She is on Keppra. Will consult Dr. Calderón and continue neurochecks. Unfortunately no EEG Machine in the facility. We may need one outpatient 7. Patient is much better this morning Qualifiers: Altered mental status type: stupor Qualified Code(s): R40.1 - Stupor (2) Seizure disorder Current Visit: Yes Status: Acute Plan: continue keppra on the patient. Will discuss with Dr. Calderón. 7. we may do an EEG as an outpatient. (3) Diabetes Current Visit: No Status: Chronic Plan: chronic problem. Will continue low dose sliding scale. Qualifiers: Diabetes mellitus type: type 2 Diabetes mellitus custodial insulin use: without intermediate designer use Diabetes mellitus complication status: without complication Qualified Code(s): E11.9 - Type 2 diabetes mellitus without complications (4) ESRD (end stage renal disease) Current Visit: No Status: Chronic Plan: consult Dr. Pennington for management (5) Parkinsons disease Current Visit: No Status: Chronic Plan: continue home medications (6) S/P percutaneous endoscopic gastrostomy (PEG) tube placement Current Visit: Yes Status: Chronic Plan: Will restart PEG feedings in the AM Discharge Plan: Assisted Plan to discharge in: 24 Hours - Code Status/Comfort Care Code Status Assessed: No Physician Review: Patient Assessed, Agree with Above Assessment and Plan Critical Care: No Time Spent Managing PTS Care (In Minutes): 20
[2022-10-17] MEDS: Pantoprazole (granules) 40 MG/BLIST PACKET FT SCH (08:46)
[2022-10-17] MEDS: CALCITROL 0.25 MCG CAP PO SCH (08:47)
[2022-10-17] MEDS ORDERED: ROTIGOTINE TOP SCH (09:00)
[2022-10-17] MEDS ORDERED: AMLODIPINE 5 MG TAB PO SCH (09:00)
[2022-10-17] MEDS ORDERED: NEPRO 1,000 ML BOT FT SCH (11:00)
[2022-10-17 12:10] VITALS: O2SAT 100
[2022-10-17 16:36] LABS: Hepatitis B Surface Ab - Quant 6.79 mIU/mL (<8.0); Hepatitis B surface AG Interp. Nonreactive (Nonreactive)
[2022-10-17] MEDS: ENOXAPARIN 30 MG/0.3 ML SQ SCH (17:00)
[2022-10-17] MEDS ORDERED: HYDROMORPHONE HCL 0.5 MG/0.5 ML INJ IV PRN (20:20)
[2022-10-17] MEDS: levETIRAcetam 500 MG/5 ML OSYR FT SCH (21:18)
--- NOTE | 2022-10-17 22:01 | P.PN ---
Date of Service: 10/17/22 Vital Signs Temp Pulse Resp BP Pulse Ox 98.6 F 71 14 121/81 99 10/17/22 20:00 10/17/22 20:00 10/17/22 21:19 10/17/22 20:00 10/17/22 21:19 Medications Calcitriol (Calcitrol 0.25 Mcg Cap) 0.5 mcg PO DAILY [facility] Last Admin: 10/17/22 08:47 Dose: 0.5 mcg Enoxaparin Sodium (Enoxaparin 30 Mg/0.3 Ml) 30 mg SQ DAILY 5 PM [facility] Last Admin: 10/17/22 17:00 Dose: Not Given Enteral Nutritional Formula (Nepro 1,000 Ml Bot) 30 ml FT CONT [facility] Last Admin: 10/17/22 11:00 Dose: 30 ml Epoetin Thierno (Epoetin Thierno 10,000 Unit/Ml Vial) 10,000 unit IV EVERY HD [facility] Last Admin: 10/17/22 16:00 Dose: 10,000 unit Heparin Sodium (Porcine) (Heparin 1,000 Unit/Ml Vial) 6,000 unit IV EVERY HD PRN PRN Reason: AFTER EACH Last Admin: 10/17/22 18:16 Dose: 6,000 unit Heparin Sodium (Porcine) (Heparin 1,000 Unit/Ml Vial) 3,000 unit IV EVERY HD PRN PRN Reason: Prevent Lines Clotting Last Admin: 10/17/22 15:12 Dose: 3,000 unit Hydromorphone HCl (Hydromorphone Hcl 0.5 Mg/0.5 Ml Inj) 0.5 mg IV Q4H PRN PRN Reason: Pain scale 8-10 (Severe) Last Admin: 10/17/22 21:19 Dose: 0.5 mg Albumin Human (Albumin 25%) 50 mls @ 100 mls/hr IV EVERY HD [facility] Levetiracetam (Levetiracetam 500 Mg/5 Ml Osyr) 1,000 mg FT DAILY [facility] Stop: 11/17/22 09:01 Last Admin: 10/17/22 21:18 Dose: 1,000 mg Levetiracetam (Levetiracetam 500 Mg/5 Ml Osyr) 500 mg FT [id number] [facility] Stop: 11/17/22 21:01 Mannitol (Mannitol 25% 12.5 Gm/50 Ml Vial) 12.5 gm IV EVERY HD PRN PRN Reason: Titrate to SBP (MUST DEFINE) Last Admin: 10/17/22 16:00 Dose: 12.5 gm Pantoprazole Sodium (Pantoprazole (Granules) 40 Mg/Blist Packet) 40 mg FT ACB [facility]; Protocol Last Admin: 10/17/22 08:46 Dose: 40 mg Lab Results (last 24 hrs) 10/16/22 11:22: Hemoglobin A1c 4.6 Assessment/ Plan: Nephrology No dyspnea No chest pain Weakness and fatigue No acute events overnight Vitals, medications, blood work and imaging reviewed in the chart. General: In no apparent distress, Cooperative HEENT: Atraumatic Neck: Supple Respiratory: Normal air movement Cardiovascular: No edema, Regular rate/rhythm Gastrointestinal: Soft and benign, Non-distended Musculoskeletal: No clubbing, No contractures Integumentary: No rashes, No cyanosis Neurological: Normal speech Laboratory Data (last 24 hrs) 10/16/22 11:51: PT 10.5, INR 0.88, APTT 27.0 10/16/22 11:51: Sodium 129 L, Potassium 2.4 L*, BUN 49 H, Creatinine 6.56 H, Glucose 114 H 10/16/22 11:22: WBC 3.70 L, Hgb 9.1 L, Hct 27.3 L, Plt Count 133 L Imagings Data: EXAM DESCRIPTION: RAD - Chest Single View - 10/16/2022 12:00 pm CLINICAL HISTORY: AMS Chest pain. COMPARISON: Chest Single View dated 09/29/2022; Chest Single View dated 02/13/2022; Chest Single View dated 02/10/2022; Chest Single View dated 09/30/2021; Abdomen Pelvis Wo Contrast dated 09/29/2022 FINDINGS: Portable technique limits examination quality. Mild interstitial pulmonary edema suspected. The heart is normal in size. No displaced fractures.Right venous catheter has tip in right atrium. IMPRESSION: Mild CHF versus volume overload. EXAM DESCRIPTION: CT - Ct Stroke Brain Wo Cont - 10/16/2022 11:12 am CLINICAL HISTORY: STROKE ALERT Headache, drowsiness, CVA symptomology COMPARISON: Ct Stroke Brain Wo Cont dated 09/29/2022; Head Brain Wo Cont dated 08/04/2020 TECHNIQUE: All CT scans are performed using dose optimization technique as appropriate and may include automated exposure control or mA/KV adjustment according to patient size. FINDINGS: No intracranial hemorrhage, hydrocephalus or extra-axial fluid collection.Hypoattenuating deep white matter structures, unchanged. Generalized brain atrophy is seen.No areas of brain edema or evidence of midline shift. The paranasal sinuses and mastoids are clear. The calvarium is intact. IMPRESSION: No acute intracranial abnormality. Conclusions/Impression: ESRD on HD -HD TIW -Seen and examined on HD Hyponatremia Hypokalemia -HD TIW -Replete lytes prn HTN with CKD/ CHF -Hold anti-hypertensives at this time Diastolic CHF, chronic -Low sodium diet -HD with UF Anemia/ Pancytopenia -Monitor CBC -Retacrit PRN CKD MBD -Continue Calcitriol Dr. Davis's note reviewed
[2022-10-18 07:01] LABS: Absolute Lymphocytes (CBC) 1.8 K/uL (0.7-4.9); Hematocrit 21.9 % (36.0-45.0); Lymphocytes % 33.2 % (15.3-44.8); MCV 103.4 fL (80-100); MPV 8.9 fL (7.6-11.3); RBC Red Blood Cell Count 2.12 M/uL (3.86-4.86)
[2022-10-18 07:12] LABS: AST/SGOT 25 U/L (15-37); Albumin 1.7 g/dL (3.4-5.0); Alkaline Phosphatase 160 U/L (45-117); BUN Blood Urea Nitrogen 22 mg/dL (7-18); Bicarbonate 29 mEq/L (21-32); Bilirubin Total 0.3 mg/dL (0.2-1.0); Glomerular Filtration Rate 11 ml/min (=/>90); Glucose Level 87 mg/dL (74-106); Potassium 2.7 mEq/L (3.5-5.1); Protein, Total 4.6 g/dL (6.4-8.2); Sodium Level 137 mEq/L (136-145)
[2022-10-18 07:13] LABS: ALT/SGPT < 6 U/L (13-56)
--- NOTE | 2022-10-18 09:45 | P.PN ---
Date of Service: 10/18/22 Vital Signs Temp Pulse Resp BP Pulse Ox 98.2 F 69 15 139/73 98 10/18/22 04:00 10/18/22 04:00 10/18/22 04:00 10/18/22 04:00 10/18/22 04:00 Medications Calcitriol (Calcitrol 0.25 Mcg Cap) 0.5 mcg PO DAILY [facility] Last Admin: 10/17/22 08:47 Dose: 0.5 mcg Enoxaparin Sodium (Enoxaparin 30 Mg/0.3 Ml) 30 mg SQ DAILY 5 PM [facility] Last Admin: 10/17/22 17:00 Dose: Not Given Enteral Nutritional Formula (Nepro 1,000 Ml Bot) 30 ml FT CONT [facility] Last Admin: 10/17/22 11:00 Dose: 30 ml Epoetin Thierno (Epoetin Thierno 10,000 Unit/Ml Vial) 10,000 unit IV EVERY HD [facility] Last Admin: 10/17/22 16:00 Dose: 10,000 unit Heparin Sodium (Porcine) (Heparin 1,000 Unit/Ml Vial) 6,000 unit IV EVERY HD PRN PRN Reason: AFTER EACH Last Admin: 10/17/22 18:16 Dose: 6,000 unit Heparin Sodium (Porcine) (Heparin 1,000 Unit/Ml Vial) 3,000 unit IV EVERY HD PRN PRN Reason: Prevent Lines Clotting Last Admin: 10/17/22 15:12 Dose: 3,000 unit Hydromorphone HCl (Hydromorphone Hcl 0.5 Mg/0.5 Ml Inj) 0.5 mg IV Q4H PRN PRN Reason: Pain scale 8-10 (Severe) Last Admin: 10/17/22 21:19 Dose: 0.5 mg Albumin Human (Albumin 25%) 50 mls @ 100 mls/hr IV EVERY HD [facility] Levetiracetam (Levetiracetam 500 Mg/5 Ml Osyr) 1,000 mg FT DAILY [facility] Stop: 11/17/22 09:01 Last Admin: 10/17/22 21:18 Dose: 1,000 mg Levetiracetam (Levetiracetam 500 Mg/5 Ml Osyr) 500 mg FT [id number]@2100 [facility] Stop: 11/17/22 21:01 Mannitol (Mannitol 25% 12.5 Gm/50 Ml Vial) 12.5 gm IV EVERY HD PRN PRN Reason: Titrate to SBP (MUST DEFINE) Last Admin: 10/17/22 16:00 Dose: 12.5 gm Pantoprazole Sodium (Pantoprazole (Granules) 40 Mg/Blist Packet) 40 mg FT [facility]; Protocol Last Admin: 10/17/22 08:46 Dose: 40 mg Assessment/ Plan: Nephrology No dyspnea No chest pain Weakness and fatigue Feeling better No acute events overnight Vitals, medications, blood work and imaging reviewed in the chart. General: In no apparent distress, Cooperative HEENT: Atraumatic Neck: Supple Respiratory: Normal air movement Cardiovascular: No edema, Regular rate/rhythm Gastrointestinal: Soft and benign, Non-distended Musculoskeletal: No clubbing, No contractures Integumentary: No rashes, No cyanosis Neurological: Normal speech Laboratory Data (last 24 hrs) 10/16/22 11:51: PT 10.5, INR 0.88, APTT 27.0 10/16/22 11:51: Sodium 129 L, Potassium 2.4 L*, BUN 49 H, Creatinine 6.56 H, Glucose 114 H 10/16/22 11:22: WBC 3.70 L, Hgb 9.1 L, Hct 27.3 L, Plt Count 133 L Imagings Data: EXAM DESCRIPTION: RAD - Chest Single View - 10/16/2022 12:00 pm CLINICAL HISTORY: AMS Chest pain. COMPARISON: Chest Single View dated 09/29/2022; Chest Single View dated 02/13/2022; Chest Single View dated 02/10/2022; Chest Single View dated 09/30/2021; Abdomen Pelvis Wo Contrast dated 09/29/2022 FINDINGS: Portable technique limits examination quality. Mild interstitial pulmonary edema suspected. The heart is normal in size. No displaced fractures.Right venous catheter has tip in right atrium. IMPRESSION: Mild CHF versus volume overload. EXAM DESCRIPTION: CT - Ct Stroke Brain Wo Cont - 10/16/2022 11:12 am CLINICAL HISTORY: STROKE ALERT Headache, drowsiness, CVA symptomology COMPARISON: Ct Stroke Brain Wo Cont dated 09/29/2022; Head Brain Wo Cont dated 08/04/2020 TECHNIQUE: All CT scans are performed using dose optimization technique as appropriate and may include automated exposure control or mA/KV adjustment according to patient size. FINDINGS: No intracranial hemorrhage, hydrocephalus or extra-axial fluid collec tion.Hypoattenuating deep white matter structures, unchanged. Generalized brain atrophy is seen.No areas of brain edema or evidence of midline shift. The paranasal sinuses and mastoids are clear. The calvarium is intact. IMPRESSION: No acute intracranial abnormality. Conclusions/Impression: ESRD on HD -HD TIW Hyponatremia Hypokalemia -HD TIW -Replete potassium today HTN with CKD/ CHF -Hold anti-hypertensives at this time Diastolic CHF, chronic -Low sodium diet -HD with UF Severe protein calorie malnutrition Decreased functional ability -Continue Nepro through FT -PT as tolerated Anemia/ Pancytopenia -Monitor CBC -Retacrit X1 CKD MBD -Continue Calcitriol Dr. Davis's note reviewed
[2022-10-18] MEDS ORDERED: POTASSIUM CL SA 10 MEQ TAB PO SCH (10:00)
[2022-10-18] MEDS ORDERED: EPOETIN ALFA-EPBX 10,000 UNIT/ML VIAL SQ ONE (10:00)
[2022-10-18] MEDS ORDERED: POTASSIUM 25 MEQ EFFERV TAB PO ONE (10:17)
[2022-10-18] MEDS: Pantoprazole (granules) 40 MG/BLIST PACKET FT SCH (10:28)
[2022-10-18] MEDS: CALCITROL 0.25 MCG CAP PO SCH (10:28)
[2022-10-18 10:29] VITALS: BP 140/73; TEMP 97.9
[2022-10-18] MEDS: levETIRAcetam 500 MG/5 ML OSYR FT SCH (10:29)
--- NOTE | 2022-10-18 11:50 | RAD REPORT ---
EXAM DESCRIPTION: MRI - Brain Wo Cont - 10/18/2022 11:41 am CLINICAL HISTORY: Acute CVA COMPARISON: Head CT October 16, 2022 and MRI brain 2020 TECHNIQUE: Axial, sagittal, and coronal magnetic resonance images of the brain were obtained. FINDINGS: Abnormal signal within the basal ganglia bilaterally is unchanged and may represent old in farcts or gliosis related to prior metabolic disease. Diffusion-weighted/ADC mapping does not reveal evidence of acute infarction. The ventricles are normal caliber. An extra-axial fluid collection is not noted. Fluid within the sinuses/mastoids is not seen IMPRESSION: No acute intracranial abnormality noted
--- NOTE | 2022-10-18 12:06 | P.DS ---
Admission Date: 10/16/22 Discharge Date: 10/18/22 Primary Care Provider: Dr. Davis Disposition: ROUTINE DISCHARGE Discharge Condition: GOOD Reason for Admission: AMS - Problems (1) Altered mental state Current Visit: Yes Status: Resolved Qualifiers: Altered mental status type: stupor Qualified Code(s): R40.1 - Stupor (2) Seizure disorder Current Visit: Yes Status: Acute (3) Diabetes Current Visit: No Status: Chronic Qualifiers: Diabetes mellitus type: type 2 Diabetes mellitus alf insulin use: without alf use Diabetes mellitus complication status: without complication Qualified Code(s): E11.9 - Type 2 diabetes mellitus without co mplications (4) ESRD (end stage renal disease) Current Visit: No Status: Chronic (5) Parkinsons disease Current Visit: No Status: Chronic (6) S/P percutaneous endoscopic gastrostomy (PEG) tube placement Current Visit: Yes Status: Chronic Brief History of Present Illness: Patient of [facility] with a history of Parkinsons and ESRD. she presented with altered mental status from the correction. She had a similar ER visit on 09/29. Was sent to [facility]. Was supposedly diagnosed with seizures and had a peg tube placed. She was admitted to the correction [facility] 3 days ago. The patient has been a bit upset about the recent transition. However the patient had some waxing wanning mentation yesterday. Was worse today and his sisters asked to bring her to emergency room. Mrs Tabares can gently wake up and shake her head. She is otherwise not able to communicate. Hospital Course: Patient was admitted for altered mental status. She was seen by Dr. Calderón. Had a MRI. If there is negative mri we can discharge her to [facility]. She is back at her baseline per her sister. Thank you for allowing me to take part in her care. Vital Signs/Physical Exam: Temp Pulse Resp BP Pulse Ox 97.9 F 72 12 140/73 99 10/18/22 08:00 10/18/22 08:00 10/18/22 08:00 10/18/22 08:00 10/18/22 08:00 General: Alert, In no apparent distress HEENT: Atraumatic, PERRLA, EOMI Neck: Supple, JVD not distended Respiratory: Clear to auscultation bilaterally, Normal air movement Cardiovascular: Regular rate/rhythm, Normal S1 S2 Gastrointestinal: Normal bowel sounds, No tenderness Musculoskeletal: No tenderness Integumentary: No rashes Neurological: Normal speech, Normal tone, Normal affect Lymphatics: No axilla or inguinal lymphadenopathy Laboratory Data at Discharge: WBC 5.50 thou/uL (4.3-10.9) 10/18/22 06:48 Hgb 7.4 g/dL (12.0-15.0) L D 10/18/22 06:48 Hct 21.9 % (36.0-45.0) L 10/18/22 06:48 Plt Count 109 thou/uL (152-406) L 10/18/22 06:48 PT 10.5 SECONDS (9.2-12.8) 10/16/22 11:51 INR 0.88 10/16/22 11:51 APTT 27.0 SECONDS (21.7-34.4) 10/16/22 11:51 Sodium 137 mEq/L (136-145) D 10/18/22 06:48 Potassium 2.7 mEq/L (3.5-5.1) L 10/18/22 06:48 BUN 22 mg/dL (7-18) H 10/18/22 06:48 Creatinine 4.38 mg/dL (0.55-1.02) H 10/18/22 06:48 Glucose 87 mg/dL (74-106) 10/18/22 06:48 Uric Acid 3.7 mg/dL (2.6-6.0) 10/17/22 07:15 Phosphorus 3.0 mg/dL (2.5-4.9) 10/17/22 07:15 Magnesium 2.5 mg/dL (1.6-2.4) H 10/17/22 07:15 Total Bilirubin 0.3 mg/dL (0.2-1.0) 10/18/22 06:48 AST 25 U/L (15-37) 10/18/22 06:48 ALT < 6 U/L (13-56) L 10/18/22 06:48 Alkaline Phosphatase 160 U/L (45-117) H D 10/18/22 06:48 Home Medications: Apixaban [Eliquis *] 5 mg FT BID 10/01/21 Carbidopa/Levodopa [Carbidopa-Levodopa 25-100 Tab] 2 tab FT TID 10/01/21 Topiramate 50 mg PO BID 10/01/21 Valproic Acid (As Sodium Salt) [Valproic Acid] 20 ml FT TID 10/01/21 Spironolactone 25 mg FT DAILY 02/23/22 Lacosamide 200 mg FT BID 10/16/22 Levothyroxine [Synthroid] 25 mcg FT DAILY 10/16/22 Topiramate 50 mg FT M,W,F 10/16/22 levETIRAcetam [Keppra] 5 ml FT M,W,F 10/16/22 levETIRAcetam [Keppra] 10 ml FT DAILY 10/16/22 Multivitamin [Multiple Vitamins] 1 tab FT DAILY 10/17/22 Diet: Renal Activity: Ad roslyn Followup: Enrique Calderón MD [ASSOCIATE-ACTIVE - CAN ADMIT] - 1-2 Weeks Hernesto Davis MD [Primary Care Provider] - 1-2 Weeks Physician Review: Patient Assessed, Agree with Above Assessment and Plan Time spent managing pt's care (in minutes): 30
--- NOTE | 2022-10-18 19:20 | EKG ---
Test Date: 2022-10-16 Test Time: 11:02:33 Financial Aid: IVON MEASUREMENT RESULTS: Intervals: Rate: 45 ID: [id number] QRSD: 106 QT: 430 QTc: 371 [place]: P: 47 ID: [id number] QRS: 27 T: -85 INTERPRETIVE STATEMENTS: Sinus bradycardia Cannot rule out Anterior infarct, age undetermined Abnormal ECG Compared to ECG 09/29/2022 12:02:11 Myocardial infarct finding now present ST (T wave) deviation no longer present Electronically Signed On 10-18-22 19:19:25 CDT by Macario Garcia
[2022-10-18] MEDS ORDERED: levETIRAcetam 500 MG/5 ML OSYR FT SCH (21:00)
== END 2022-10-18 15:30 | DRG 640 ==
LOC: SUPCPDRO 10:59 → ER 10:59 → ERHOLD 17:10 → 2ND 22:05
PROVIDERS: ADMIT Internal Medicine; ATTEND Internal Medicine
DX: E87.1 Hypo-osmolality and hyponatremia (principal); E43 Unspecified severe protein-calorie malnutrition; N18.6 End stage renal disease; I50.32 Chronic diastolic (congestive) heart failure; I13.2 Hypertensive heart and chronic kidney disease with heart failure and with stage 5 chronic kidney disease, or end stage renal disease; D61.818 Other pancytopenia; G40.909 Epilepsy, unspecified, not intractable, without status epilepticus; E11.22 Type 2 diabetes mellitus with diabetic chronic kidney disease; E87.6 Hypokalemia; E78.5 Hyperlipidemia, unspecified; G20 Parkinson's disease; I25.2 Old myocardial infarction; Z66 Do not resuscitate; Z60.2 Problems related to living alone; Z99.2 Dependence on renal dialysis; Z93.1 Gastrostomy status; Z86.73 Personal history of transient ischemic attack (TIA), and cerebral infarction without residual deficits; Z98.51 Tubal ligation status; Z74.01 Bed confinement status; Z68.21 Body mass index [BMI] 21.0-21.9, adult; Z79.01 Long term (current) use of anticoagulants; Z79.899 Other long term (current) drug therapy; Z91.013 Allergy to seafood; Z90.710 Acquired absence of both cervix and uterus; Z96.659 Presence of unspecified artificial knee joint
CPT/HCPCS: 36415; 70450; 70551; 71045; 80048; 80053; 80164; 82947; 83036; 83605; 83735; 83880; 84100; 84439; 84443; 84484; 84550; 85025; 85610; 85730; 86706; 87340; 90935; 93005; 97530; J1170; J1644; J1650; J1953; J2150; J3480; Q4081; Q5106